=== PATIENT | female | born 1960 | race Caucasian/White ===

== ENCOUNTER 2024-11-04 20:06 | Inpatient (IN) | payer OTHER, SELFPAY ==
--- NOTE | ~2024-11-04 | CT_ITS ---
EXAMINATION: CT cervical spine wo con DATE: 11/04/2024 22:44 INDICATION: Fall. TECHNIQUE: Computed tomography (CT) of the cervical spine was performed without intravenous contrast. Automated exposure control and iterative reconstruction technique were employed. The dose-length pro duct was 387.22 mGy-cm. COMPARISON: None FINDINGS: C1 ring is ununited posteriorly, a normal variant. There is 2 mm anterolisthesis of C4 on C 5. There is 5 degrees levocurvature of cervical spine. Vertebral body heights are normal. There is se verely decreased disc height at C5-C6 and mildly decreased disc height at C6-C7. The following disc l evels are specifically discussed: C2-C3: There is moderate right and mild left uncovertebral joint osteoarthritis. There is severe bila teral facet joint osteoarthritis. There is mild right neural foraminal stenosis. There is no central canal stenosis. C3-C4: There is severe bilateral uncovertebral joint osteoarthritis. There is severe bilateral facet joint osteoarthritis. There is mild right and moderate left neural foraminal stenosis. There is mild central canal stenosis. C4-C5: There is mild right and severe left uncovertebral joint osteoarthritis. There is mild right an d severe left facet joint osteoarthritis. There is moderate left neural foraminal stenosis. There is mild central canal stenosis. C5-C6: There is severe bilateral uncovertebral joint osteoarthritis. There is moderate right and shantanu re left facet joint osteoarthritis. There is moderate right and mild left neural foraminal stenosis. There is mild central canal stenosis. C6-C7: There is severe bilateral uncovertebral joint osteoarthritis. There is severe bilateral facet joint osteoarthritis. There is mild bilateral neural foraminal stenosis. There is mild central canal stenosis. C7-T1: There is no uncovertebral joint osteoarthritis. There is moderate right and severe left facet joint osteoarthritis. There is mild left neural foraminal stenosis. There is no central canal stenosi s. IMPRESSION: 1. No fracture. 2. Severe cervical spondylosis. Reviewed, dictated and finalized at location A. CH LANG PATH THERAPIST
--- NOTE | ~2024-11-04 | CT_ITS ---
EXAMINATION: CT abd pelvis lumbar wo con DATE: 11/04/2024 22:44 INDICATION: Abdominal pain. Sepsis. TECHNIQUE: Computed tomography (CT) of the abdomen and pelvis and lumbar spine was performed without intravenous contrast. Automated exposure control and iterative reconstruction technique were employed . The dose-length product was 2045.30 mGy-cm. COMPARISON: CT abdomen and pelvis 09/06/2023, 06/28/2024 FINDINGS: CT ABDOMEN AND PELVIS: The visualized portions of the lung bases demonstrate mild atelectasis. No ple ural effusion. The heart size is normal. No pericardial effusion. There is diffuse hepatic steatosis. There are changes of cholecystectomy. Calcifications in the spleen are consistent with old granuloma tous disease. The pancreas is normal. There is an 8 mm mass in right adrenal gland containing fat, co nsistent with a myelolipoma. There are dystrophic calcifications in the left adrenal gland. There is a 1.3 cm mass in left adrenal gland measuring low attenuation, consistent with an adenoma. The right kidney is normal. There is asymmetric fat stranding around the left kidney. There is mild left hydrou reter. There is diverticulosis of the colon without evidence of diverticulitis. There are no dilated loops of bowel. The appendix is normal. There is calcified atherosclerosis of the aorta and many of t he other arteries. There are stents in the common iliac arteries. There are no pathologically enlarge d lymph nodes. There is no free intraperitoneal fluid. CT LUMBAR SPINE: There is 4 degrees dextrocurvature of lumbar spine. Vertebral body heights are afua l. There is mildly decreased disc height at L3-L4 and L4-L5. The following disc levels are specifical ly discussed: L1-L2: The disc does not extend beyond the endplate margin. There is severe bilateral facet joint ost eoarthritis. There is no neural foraminal stenosis. There is no central canal stenosis. L2-L3: The disc is bulging. There is severe bilateral facet joint osteoarthritis. There is mild bilat eral neural foraminal stenosis. There is mild central canal stenosis. L3-L4: The disc is bulging. There is severe bilateral facet joint osteoarthritis. There is mild bilat eral neural foraminal stenosis. There is mild central canal stenosis. L4-L5: The disc is bulging. There is mild bilateral facet joint osteoarthritis. There is mild bilater al neural foraminal stenosis. There is mild central canal stenosis. L5-S1: The disc is bulging. There is severe bilateral facet joint osteoarthritis. There is no neural foraminal stenosis. There is mild central canal stenosis. IMPRESSION: 1. Mild left hydroureter, new from 06/28/24. No urolithiasis. 2. Mild lumbar spondylosis. Reviewed, dictated and finalized at location A. TS BOOK BOARD ATTENDANT
--- NOTE | ~2024-11-04 | XR_ITS ---
XR chest 1V portable DATE: 11/04/2024 20:57 INDICATION: Fall. Weakness. TECHNIQUE: [place] [id number] hours COMPARISON: 06/22/2024 portable AP chest FINDINGS: Calcified pulmonary granuloma in the lateral left midlung. No pulmonary infiltrate or conso lidation, pleural effusion or pulmonary vascular congestion or pneumothorax. Normal heart size. No hilar or mediastinal enlargement. Included skeletal structures appear unremarkable. IMPRESSION: No active cardiopulmonary disease Reviewed, dictated and finalized at location A. OLE OPERATOR
--- NOTE | ~2024-11-04 | CT_ITS ---
EXAMINATION: CT brain wo con DATE: 11/04/2024 22:44 INDICATION: Fall. TECHNIQUE: Computed tomography (CT) of the head was performed without intravenous contrast. The mA wa s adjusted according to patient size. Iterative reconstruction technique was employed. The dose-lengt h product was 983.67 mGy-cm. COMPARISON: Head CT 06/22/2024 FINDINGS: There are old infarcts in the bilateral basal ganglia. There is no intracranial hemorrhage, acute infarction, or abnormal intracranial mass lesion. The ventricles are normal in size. There are old fractures of the medial calvin of the orbits. There is mild mucosal thickening in the ethmoid sin uses. The mastoid air cells are normal. IMPRESSION: 1. Old infarcts in the bilateral basal ganglia. Reviewed, dictated and finalized at location A. COUNSELOR
--- NOTE | ~2024-11-04 | XR_ITS ---
EXAMINATION: XR chest port-a-cath/central DATE: 11/05/2024 10:20 INDICATION: Central line placement. TECHNIQUE: A single frontal view of the chest was obtained. COMPARISON: Chest single view 11/04/2024 FINDINGS: There is no pneumonia, pleural effusion, or pneumothorax. The heart size is normal. A right internal jugular central venous catheter is seen with tip in the proximal right atrium. IMPRESSION: 1. Central line tip in the proximal right atrium. Reviewed, dictated and finalized at location A. CCO PRIMER 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
--- NOTE | ~2024-11-04 | US_ITS ---
US renal BI DATE: 11/05/2024 14:57 INDICATION: Elevated serum creatinine TECHNIQUE: Real-time imaging of the kidneys and urinary bladder COMPARISON: 11/04/2024 CT abdomen pelvis FINDINGS: The right kidney measures 12.9 cm sagittal, 5.4 cm AP and 6.1 cm transverse dimension. No right renal mass lesion or hydronephrosis is detected. The left kidney measures 12.7 cm sagittal, 6.1 cm AP and 5.5 cm transverse dimension. No left renal m ass lesion or hydronephrosis is detected. The urinary bladder the catheter and is evacuated and not evaluated as a result. IMPRESSION: No renal mass lesion or hydronephrosis is detected Reviewed, dictated and finalized at Location A. Reviewed, dictated and finalized at location A. LYST RECOVERY OPERATOR
--- NOTE | ~2024-11-04 | CT_ITS ---
EXAMINATION: CT thoracic spine wo con DATE: 11/04/2024 22:44 INDICATION: Fall. TECHNIQUE: Computed tomography (CT) of the thoracic spine was performed without intravenous contrast. Automated exposure control and iterative reconstruction technique were employed. The dose-length pro duct was 1452.60 mGy-cm. COMPARISON: Chest CT 02/18/2023 FINDINGS: Calcified left hilar lymph nodes and calcifications in the liver and spleen are consistent with old granulomatous disease. There is 6 degrees dextrocurvature of thoracic spine. Vertebral body heights are normal. There is mildly decreased disc height from T2-T3 through T11-T12. There is multil evel [id number] facet joint osteoarthritis. On the right, there is mild neural foraminal stenos is at T8-T9. There is mild central canal stenosis at T10-T11 and T11-T12. IMPRESSION: 1. No fracture 2. Mild thoracic spondylosis. Reviewed, dictated and finalized at location A. K AIRMAN
--- NOTE | ~2024-11-04 | XR_ITS ---
XR abdomen obstructive series Ordering provider: FAYE Cruz History: . Constipation with N/V . Comparison: None. FINDINGS: BOWEL: Nonobstructive bowel gas pattern. ORGANOMEGALY: None. SIGNIFICANT PATHOLOGIC CALCIFICATIONS: None. OTHER: No free air is seen under the diaphragm. Stents are seen in the right and left iliac arteries. IMPRESSION: NO ACUTE ABDOMINAL FINDINGS. Reviewed, dictated and finalized at location A. ER SETTER CHAINSTITCH
[2024-11-04 20:04] VITALS: BP 68/54; PULSE 113; RESP 26; TEMP 36.9; O2SAT 97
--- NOTE | 2024-11-04 20:20 | PC.NURSE ---
Upon assessment in triage, patient appears lethargic and very pale.
--- NOTE | 2024-11-04 20:22 | ECG_ITS ---
Test Date: 2024-11-04 20:26:14 Measurements Intervals [place] Rate: 104 P: 0 OR: 0 QRS: 37 QRSD: 92 T: 24 QT: 362 QTc: 478 Interpretive Statements ATRIAL FIBRILLATION WITH RAPID VENTRICULAR RESPONSE MODERATE T-WAVE ABNORMALITY, CONSIDER INFERIOR ISCHEMIA [-0.1+ mV T WAVE IN II/aVF] No previous ECG available for comparison Electronically Signed On 11-04-2024 21:05:11 EXPORT FREIGHT MANAGER by Rhonda Barriga M.D.
[2024-11-04] MEDS: SODIUM CHLORIDE 0.9% IV 1,000 ML 999 ML (20:30)
[2024-11-04 20:32] VITALS: BP 78/51; PULSE 119; RESP 19
[2024-11-04 20:34] VITALS: PULSE 101; RESP 22; O2SAT 96
[2024-11-04 20:35] VITALS: O2SAT 95
--- NOTE | 2024-11-04 20:51 | ED_ITS ---
HPI - Weakness General Chief complaint: Upper Respiratory Infection <MIREILLE Coyle Last Filed: 11/05/24 01:21> Stated complaint: flu symptoms and fall <MIREILLE Coyle Last Filed: 11/05/24 01:21> Time Seen by Provider: 11/04/24 20:11 <MIREILLE Coyle Last Filed: 11/05/24 01:21> Source: patient <MIREILLE Coyle Last Filed: 11/05/24 01:21> Mode of arrival: EMS <MIREILLE Coyle Last Filed: 11/05/24 01:21> Limitations: no limitations <MIREILLE Coyle Last Filed: 11/05/24 01:21> History of Present Illness HPI Narrative: This is a 63 year old female that presents to the ER for generalized weakness. Reports this has been ongoing over the last 4 days. Reports recent cystoscopy for bladder cancer, she tends to get UTIs after this. She has had fevers and flank pain. Also reports cough, congestion, diarrhea. Reports today she was so weak she fell. She reports back pain after the fall. She does not believe she hit her head or lost consciousness. <MIREILLE Coyle Last Filed: 11/05/24 01:21> Related Data Allergies/Adverse reactions: Allergies Allergy/AdvReac Type Severity Reaction Status Date / Time No Known Allergies Allergy Verified 11/04/24 20:49 <MIREILLE Coyle Last Filed: 11/05/24 01:21> Review of Systems 2 Review of Systems: CONSTITUTIONAL: Reports fever ENT: Reports rhinorrhea, congestion CARDIOVASCULAR: Denies chest pain, or edema. RESPIRATORY: Reports cough and dyspnea. GASTROINTESTINAL: Reports abdominal pain, nausea, and diarrhea. GENITOURINARY: Denies hematuria. MUSCULOSKELETAL: Reports back pain NEUROLOGIC: Reports generalized weakness. <MIREILLE Coyle Last Filed: 11/05/24 01:21> All systems reviewed & are unremarkable except as noted in HPI and below < MIREILLE Coyle Last Filed: 11/05/24 01:21> [facility] Past Medical History Medical History: Medical History (Updated 11/05/24 @ 01:21 by Nicole Hernandez PA-C) History of gastroesophageal reflux (GERD) History of diabetes mellitus History of COPD History of bladder cancer <Nicole Hernandez PA-C - Last Filed: 11/05/24 01:21> Social History Social History: Social History (Updated 11/05/24 @ 01:11 by Nicole Hernandez PA-C) Smoking status: Current some day smoker <Nicole Hernandez PA-C - Last Filed: 11/05/24 01:21> Exam 2 Narrative: GENERAL: Ill-appearing, well-nourished, and in no acute distress. HEAD: Normocephalic, atraumatic. EYES: PERRLA and EOMI. ENT: Nares clear, no rhinorrhea or epistaxis. Mucous membranes moist. Oropharynx without tonsillar hypertrophy exudate or other lesions. Bilateral TMs pearly howard non-bulging NECK: Supple. No adenopathy or masses. CHEST: Clear to auscultation. No respiratory distress. No wheezes rales or rhonchi HEART: Regular rate and rhythm. No murmur heard. Normal peripheral pulses. ABDOMEN: Soft, nontender, nondistended, normal active bowel sounds. EXTREMITIES: Normal range of motion. No edema or obvious deformity. SKIN: Warm, dry, no rash. NEURO: No focal deficits. Alert and oriented x3. CN II-XII grossly intact PSYCH: Normal mood and affect <Nicole Hernandez PA-C - Last Filed: 11/05/24 01:21> Course Course Emergency Course: patient updated on workup and recommendation for admission <Nicole Hernandez PA-C - Last Filed: 11/05/24 01:21> BUS AND RAIL OPERATOR/PA Physician Supervision For this patient encounter, I reviewed the BUS AND RAIL OPERATOR or PA documentation, treatment plan, and medical decision making; and I had [id number] time with this patient. <Reid Maynard MD - Last Filed: 11/05/24 03:21> Consultations Consultation #1: spoke with hospitalist about patient and workup who accepts admission < Nicole Hernandez PA-C - Last Filed: 11/05/24 01:21> Date: 11/05/24 <Nicole Hernandez PA-C - Last Filed: 11/05/24 01:21> Vital Signs Vital signs: Vital Signs Temperature 98.4 F 11/04/24 20:04 Pulse Rate 113 H 11/04/24 20:04 Respiratory Rate 26 H 11/04/24 20:04 Blood Pressure 68/54 L 11/04/24 20:04 Pulse Oximetry 97 11/04/24 20:04 Oxygen Delivery Room Air 11/04/24 20:04 Temperature 98.4 F 11/04/24 20:04 Pulse Rate 142 H 11/05/24 02:34 Respiratory Rate 22 H 11/05/24 02:34 Blood Pressure 106/61 11/05/24 02:34 Pulse Oximetry 100 11/05/24 02:34 Oxygen Delivery Nasal Cannula 11/04/24 20:35 Oxygen Flow Rate 4 11/04/24 20:35 <Nicole Hernandez PA-C - Last Filed: 11/05/24 01:21> Vital Signs Temperature 98.4 F 11/04/24 20:04 Pulse Rate 113 H 11/04/24 20:04 Respiratory Rate 26 H 11/04/24 20:04 Blood Pressure 68/54 L 11/04/24 20:04 Pulse Oximetry 97 11/04/24 20:04 Oxygen Delivery Room Air 11/04/24 20:04 Temperature 98.4 F 11/04/24 20:04 Pulse Rate 142 H 11/05/24 02:34 Respiratory Rate 22 H 11/05/24 02:34 Blood Pressure 106/61 11/05/24 02:34 Pulse Oximetry 100 11/05/24 02:34 Oxygen Delivery Nasal Cannula 11/04/24 20:35 Oxygen Flow Rate 4 11/04/24 20:35 <Reid Maynard MD - Last Filed: 11/05/24 03:21> MDM - Weakness MDM Narrative Medical decision making narrative: Patient presents to the emergency department for generalized weakness, viral symptoms, flank pain. Reporting a fall tonight. Patient is afebrile. Tachycardic upon arrival, this had initially normalized with IV fluids. She then again heart rate became more elevated, noted to be in AFib with RVR. Patient started on diltiazem drip. Blood pressure initially soft, this did respond to IV fluids. CBC with leukocytosis to 18.8, also shows hemoconcentration. Metabolic panel with evidence of dehydration and hyponatremia. As well as acute kidney injury. Urine with evidence of infection. COVID test is positive. CT brain, cervical spine, thoracic and lumbar spine without acute posttraumatic findings. CT abdomen and pelvis shows perinephric stranding on the left. patient updated on workup and recommendation for admission. Patient was fluid resuscitated, blood cultures drawn and patient started on IV antibiotics. Spoke with hospitalist about patient and workup who accepts admission <Nicole Hernandez PA-C - Last Filed: 11/05/24 01:21> Differential Diagnosis Differential diagnosis: Likely sepsis, dehydration and other ( UTI, pyelonephritis, kidney stone, compression fracture, electrolyte derangement, COVID-19, atrial fibrillation) < Nicole Hernandez PA-C - Last Filed: 11/05/24 01:21> Lab Data Attestation: I reviewed the patient's lab results. <Nicole Hernandez PA-C - Last Filed: 11/05/24 01:21> Result diagrams: 11/04/24 20:43 11/04/24 20:43 <MIREILLE Coyle Last Filed: 11/05/24 01:21> Labs: Lab Results 11/04/24 11/04/24 11/05/24 Range/Units 20:43 23:39 00:08 WBC 18.8 H (4.5-10.0) K/mm3 RBC 5.79 H (4.2-5.4) M/mm3 Hgb 16.5 H (12.0-15.0) g/dL Hct 48.5 H (37.0-47.0) % MCV 83.8 (80-100) fl MCH 28.5 (26-34) pg MCHC 34.0 (32-36) g/dl RDW 12.7 (11.5-14.5) % Plt Count 174 (150-375) k/mm3 MPV 11.2 H (7.4-10.4) fl Immature Gran % (Auto) 1.1 H (0-0.5) % Neut % (Auto) 83.1 H (45.5-73.1) % Lymph % (Auto) 5.3 L (18.3-44.2) % [place] % (Auto) 8.6 H (2.6-8.5) % Eos % (Auto) 1.2 (0-4.4) % Baso % (Auto) 0.7 (0.2-1.2) % Lymph # (Auto) 0.99 (0.9-3.2) K/mm3 [place] # (Auto) 1.6 H (0.1-0.6) K/mm3 Eos # (Auto) 0.2 (0-0.3) K/mm3 Baso # (Auto) 0.1 (0.0-0.1) K/mm3 Abs Immat Gran (auto) 0.20 H (0.00-0.031) K/mm3 Absolute Neuts (auto) 15.7 H (1.3-6.7) K/mm3 Absolute Nucleated RBC 0.000 (0.0-0.012) K/mm3 Nucleated RBC % 0.0 (0.0-0.2) % Sodium 122 L (137-145) mmol/L Potassium 3.6 (3.4-5.0) mmol/L Chloride 93 L (98-107) mmol/L Carbon Dioxide 17 L (22-30) mmol/L Anion Gap 12 (4-12) mmol/L BUN 36 H (7-17) mg/dL Creatinine 2.20 H (0.7-1.0) mg/dL Estim Creat Clear Calc 25 ml/min Estimated GFR 23 L (59 - ) Glucose 210 H (65-110) mg/dL Lactic Acid 3.6 H 3.1 H (0.7-2.0) mmol/L Calcium 9.0 (8.4-10.2) mg/dL Magnesium (1.6-2.3) mg/dL Total Bilirubin 1.0 (0.2-1.3) mg/dL AST 35 (14-36) U/L ALT 22 (6-35) U/L Alkaline Phosphatase 133 H (38-126) U/L Total Creatine Kinase 114 (30-135) U/L Troponin I 0.045 H* (0.000-0.034) ng/mL C-Reactive Protein > 45.0 H (<1.0) mg/dL Total Protein 8.0 (6.3-8.2) g/dL Albumin 3.7 (3.5-5.1) g/dL Urine Color Yellow (Yellow) Urine Appearance Turbid H (Clear) Urine pH 5.5 (5.0-9.0) Ur Specific [place] 1.011 (1.001-1.035) Urine Protein 3+ H (Negative) mg/dL Urine Glucose (UA) Negative (Negative) mg/dL Urine Ketones Negative (Negative) mg/dL Ur Blood (Man) 3+ H (Negative) Urine Nitrate Positive H (Negative) Urine Bilirubin Negative (Negative) Urine Urobilinogen 1.0 (<2.0) mg/dL Add Ur Microanalysis Reviewed Leukocyte Esterase Rfl 2+ H (Negative) NORBERTO/UL Urine RBC >100 H (0-2) /hpf Urine WBC >100 H (0-3) /hpf Ur Squamous Epith Cells Occasional (Few) /hpf Urine Bacteria 4+ H /hpf Urine Casts 11-20 Influenza A (RT-PCR) Negative (Negative) Influenza B (RT-PCR) Negative (Negative) RSV (RT-PCR) Negative (Negative) SARS-CoV-2 RNA (RT-PCR) Positive A (Negative) 11/05/24 Range/Units 02:47 WBC (4.5-10.0) K/mm3 RBC (4.2-5.4) M/mm3 Hgb (12.0-15.0) g/dL Hct (37.0-47.0) % MCV (80-100) fl MCH (26-34) pg MCHC (32-36) g/dl RDW (11.5-14.5) % Plt Count (150-375) k/mm3 MPV (7.4-10.4) fl Immature Gran % (Auto) (0-0.5) % Neut % (Auto) (45.5-73.1) % Lymph % (Auto) (18.3-44.2) % [place] % (Auto) (2.6-8.5) % Eos % (Auto) (0-4.4) % Baso % (Auto) (0.2-1.2) % Lymph # (Auto) (0.9-3.2) K/mm3 [place] # (Auto) (0.1-0.6) K/mm3 Eos # (Auto) (0-0.3) K/mm3 Baso # (Auto) (0.0-0.1) K/mm3 Abs Immat Gran (auto) (0.00-0.031) K/mm3 Absolute Neuts (auto) (1.3-6.7) K/mm3 Absolute Nucleated RBC (0.0-0.012) K/mm3 Nucleated RBC % (0.0-0.2) % Sodium (137-145) mmol/L Potassium (3.4-5.0) mmol/L Chloride (98-107) mmol/L Carbon Dioxide (22-30) mmol/L Anion Gap (4-12) mmol/L BUN (7-17) mg/dL Creatinine (0.7-1.0) mg/dL Estim Creat Clear Calc ml/min Estimated GFR (59 - ) Glucose (65-110) mg/dL Lactic Acid (0.7-2.0) mmol/L Calcium (8.4-10.2) mg/dL Magnesium 1.5 L (1.6-2.3) mg/dL Total Bilirubin (0.2-1.3) mg/dL AST (14-36) U/L ALT (6-35) U/L Alkaline Phosphatase (38-126) U/L Total Creatine Kinase (30-135) U/L Troponin I 0.025 D (0.000-0.034) ng/mL C-Reactive Protein (<1.0) mg/dL Total Protein (6.3-8.2) g/dL Albumin (3.5-5.1) g/dL Urine Color (Yellow) Urine Appearance (Clear) Urine pH (5.0-9.0) Ur Specific [place] (1.001-1.035) Urine Protein (Negative) mg/dL Urine Glucose (UA) (Negative) mg/dL Urine Ketones (Negative) mg/dL Ur Blood (Man) (Negative) Urine Nitrate (Negative) Urine Bilirubin (Negative) Urine Urobilinogen (<2.0) mg/dL Add Ur Microanalysis Leukocyte Esterase Rfl (Negative) NORBERTO/UL Urine RBC (0-2) /hpf Urine WBC (0-3) /hpf Ur Squamous Epith Cells (Few) /hpf Urine Bacteria /hpf Urine Casts Influenza A (RT-PCR) (Negative) Influenza B (RT-PCR) (Negative) RSV (RT-PCR) (Negative) SARS-CoV-2 RNA (RT-PCR) (Negative) <Nicole Hernandez PA-C - Last Filed: 11/05/24 01:21> Lab Results 11/04/24 11/04/24 11/05/24 Range/Units 20:43 23:39 00:08 WBC 18.8 H (4.5-10.0) K/mm3 RBC 5.79 H (4.2-5.4) M/mm3 Hgb 16.5 H (12.0-15.0) g/dL Hct 48.5 H (37.0-47.0) % MCV 83.8 (80-100) fl MCH 28.5 (26-34) pg MCHC 34.0 (32-36) g/dl RDW 12.7 (11.5-14.5) % Plt Count 174 (150-375) k/mm3 MPV 11.2 H (7.4-10.4) fl Immature Gran % (Auto) 1.1 H (0-0.5) % Neut % (Auto) 83.1 H (45.5-73.1) % Lymph % (Auto) 5.3 L (18.3-44.2) % [place] % (Auto) 8.6 H (2.6-8.5) % Eos % (Auto) 1.2 (0-4.4) % Baso % (Auto) 0.7 (0.2-1.2) % Lymph # (Auto) 0.99 (0.9-3.2) K/mm3 [place] # (Auto) 1.6 H (0.1-0.6) K/mm3 Eos # (Auto) 0.2 (0-0.3) K/mm3 Baso # (Auto) 0.1 (0.0-0.1) K/mm3 Abs Immat Gran (auto) 0.20 H (0.00-0.031) K/mm3 Absolute Neuts (auto) 15.7 H (1.3-6.7) K/mm3 Absolute Nucleated RBC 0.000 (0.0-0.012) K/mm3 Nucleated RBC % 0.0 (0.0-0.2) % Sodium 122 L (137-145) mmol/L Potassium 3.6 (3.4-5.0) mmol/L Chloride 93 L (98-107) mmol/L Carbon Dioxide 17 L (22-30) mmol/L Anion Gap 12 (4-12) mmol/L BUN 36 H (7-17) mg/dL Creatinine 2.20 H (0.7-1.0) mg/dL Estim Creat Clear Calc 25 ml/min Estimated GFR 23 L (59 - ) Glucose 210 H (65-110) mg/dL Lactic Acid 3.6 H 3.1 H (0.7-2.0) mmol/L Calcium 9.0 (8.4-10.2) mg/dL Magnesium (1.6-2.3) mg/dL Total Bilirubin 1.0 (0.2-1.3) mg/dL AST 35 (14-36) U/L ALT 22 (6-35) U/L Alkaline Phosphatase 133 H (38-126) U/L Total Creatine Kinase 114 (30-135) U/L Troponin I 0.045 H* (0.000-0.034) ng/mL C-Reactive Protein > 45.0 H (<1.0) mg/dL Total Protein 8.0 (6.3-8.2) g/dL Albumin 3.7 (3.5-5.1) g/dL Urine Color Yellow (Yellow) Urine Appearance Turbid H (Clear) Urine pH 5.5 (5.0-9.0) Ur Specific [place] 1.011 (1.001-1.035) Urine Protein 3+ H (Negative) mg/dL Urine Glucose (UA) Negative (Negative) mg/dL Urine Ketones Negative (Negative) mg/dL Ur Blood (Man) 3+ H (Negative) Urine Nitrate Positive H (Negative) Urine Bilirubin Negative (Negative) Urine Urobilinogen 1.0 (<2.0) mg/dL Add Ur Microanalysis Reviewed Leukocyte Esterase Rfl 2+ H (Negative) NORBERTO/UL Urine RBC >100 H (0-2) /hpf Urine WBC >100 H (0-3) /hpf Ur Squamous Epith Cells Occasional (Few) /hpf Urine Bacteria 4+ H /hpf Urine Casts 11-20 Influenza A (RT-PCR) Negative (Negative) Influenza B (RT-PCR) Negative (Negative) RSV (RT-PCR) Negative (Negative) SARS-CoV-2 RNA (RT-PCR) Positive A (Negative) 11/05/24 Range/Units 02:47 WBC (4.5-10.0) K/mm3 RBC (4.2-5.4) M/mm3 Hgb (12.0-15.0) g/dL Hct (37.0-47.0) % MCV (80-100) fl MCH (26-34) pg MCHC (32-36) g/dl RDW (11.5-14.5) % Plt Count (150-375) k/mm3 MPV (7.4-10.4) fl Immature Gran % (Auto) (0-0.5) % Neut % (Auto) (45.5-73.1) % Lymph % (Auto) (18.3-44.2) % [place] % (Auto) (2.6-8.5) % Eos % (Auto) (0-4.4) % Baso % (Auto) (0.2-1.2) % Lymph # (Auto) (0.9-3.2) K/mm3 [place] # (Auto) (0.1-0.6) K/mm3 Eos # (Auto) (0-0.3) K/mm3 Baso # (Auto) (0.0-0.1) K/mm3 Abs Immat Gran (auto) (0.00-0.031) K/mm3 Absolute Neuts (auto) (1.3-6.7) K/mm3 Absolute Nucleated RBC (0.0-0.012) K/mm3 Nucleated RBC % (0.0-0.2) % Sodium (137-145) mmol/L Potassium (3.4-5.0) mmol/L Chloride (98-107) mmol/L Carbon Dioxide (22-30) mmol/L Anion Gap (4-12) mmol/L BUN (7-17) mg/dL Creatinine (0.7-1.0) mg/dL Estim Creat Clear Calc ml/min Estimated GFR (59 - ) Glucose (65-110) mg/dL Lactic Acid (0.7-2.0) mmol/L Calcium (8.4-10.2) mg/dL Magnesium 1.5 L (1.6-2.3) mg/dL Total Bilirubin (0.2-1.3) mg/dL AST (14-36) U/L ALT (6-35) U/L Alkaline Phosphatase (38-126) U/L Total Creatine Kinase (30-135) U/L Troponin I 0.025 D (0.000-0.034) ng/mL C-Reactive Protein (<1.0) mg/dL Total Protein (6.3-8.2) g/dL Albumin (3.5-5.1) g/dL Urine Color (Yellow) Urine Appearance (Clear) Urine pH (5.0-9.0) Ur Specific [place] (1.001-1.035) Urine Protein (Negative) mg/dL Urine Glucose (UA) (Negative) mg/dL Urine Ketones (Negative) mg/dL Ur Blood (Man) (Negative) Urine Nitrate (Negative) Urine Bilirubin (Negative) Urine Urobilinogen (<2.0) mg/dL Add Ur Microanalysis Leukocyte Esterase Rfl (Negative) NORBERTO/UL Urine RBC (0-2) /hpf Urine WBC (0-3) /hpf Ur Squamous Epith Cells (Few) /hpf Urine Bacteria /hpf Urine Casts Influenza A (RT-PCR) (Negative) Influenza B (RT-PCR) (Negative) RSV (RT-PCR) (Negative) SARS-CoV-2 RNA (RT-PCR) (Negative) <Reid Maynard MD - Last Filed: 11/05/24 03:21> Imaging Data Radiologist's impression: ITS Impressions Chest X-Ray 11/04/24 21:04 IMPRESSION: No active cardiopulmonary disease CT brain: no acute intracranial abnormality CT cervical spine: no acute traumatic abnormality identified CT abdomen and pelvis: Perinephric stranding on the left. No evidence of renal calculi or hydronephrosis CT thoracic spine: no acute fracture CT lumbar spine: no acute fracture <Nicole Hernandez PA-C - Last Filed: 11/05/24 01:21> ECG Data EKG #1: ECG completion date: 11/04/24 <MIREILLE Coyle Last Filed: 11/05/24 01:21> EKG Interpretation: atrial fibrillation (with RVR) and normal QT <Nicole Hernandez PA-C - Last Filed: 11/05/24 01:21> Critical Care Time Critical Care Time Critical Care Time: Yes <Nicole Hernandez PA-C - Last Filed: 11/05/24 01:21> Total Critical Care Time: 35 <Nicole Hernandez PA-C - Last Filed: 11/05/24 01:21> Discharge Plan Discharge Clinical Impression: Pyelonephritis, Atrial fibrillation with RVR, COVID-19, Hyponatremia Sepsis Qualifiers: Sepsis type: sepsis due to unspecified organism Sepsis acute organ dysfunction status: with acute organ dysfunction Severe sepsis acute organ dysfunction type: acute renal failure Acute renal failure type: unspecified Severe sepsis shock status: without septic shock Qualified Code(s): A41.9 - Sepsis, unspecified organism <Nicole Hernandez PA-C - Last Filed: 11/05/24 01:21> Patient Disposition: Still a Patient <Nicole Hernandez PA-C - Last Filed: 11/05/24 01:21> Condition: Serious <Nicole Hernandez PA-C - Last Filed: 11/05/24 01:21> Patient Language: Nicaraguan <Nicole Hernandez PA-C - Last Filed: 11/05/24 01:21> Follow-up/Referrals: Andrey,Matti Parson MD [Primary Care Provider] - <Nicole Hernandez PA-C - Last Filed: 11/05/24 01:21>
--- NOTE | 2024-11-04 20:52 | PC.NURSE ---
RN informed provider that patient does not look well at this time.
[2024-11-04] MEDS: Please add drug allergy info to patient profile. 1 EACH XX (20:53)
[2024-11-04 20:59] LABS: Basophils Absolute Auto 0.1 K/mm3 (0.0-0.1); Basophils Percent Auto 0.7 % (0.2-1.2); Eosinophils Absolute Auto 0.2 K/mm3 (0-0.3); Eosinophils Percent Auto 1.2 % (0-4.4); Hematocrit 48.5 % (37.0-47.0); Hemoglobin 16.5 g/dL (12.0-15.0); Immature Granulocyte Percent A 1.1 % (0-0.5); Lymphocytes Absolute Auto 0.99 K/mm3 (0.9-3.2); Lymphocytes Percent Auto 5.3 % (18.3-44.2); Mean Corpuscular Hemoglobin 28.5 pg (26-34); Mean Corpuscular Volume 83.8 fl (80-100); Mean Platelet Volume 11.2 fl (7.4-10.4); Monocytes Absolute Auto 1.6 K/mm3 (0.1-0.6); Monocytes Percent Auto 8.6 % (2.6-8.5); Neutrophils Absolute Auto 15.7 K/mm3 (1.3-6.7); Neutrophils Percent Auto 83.1 % (45.5-73.1); Platelet Count Result 174 k/mm3 (150-375); Red Blood Count 5.79 M/mm3 (4.2-5.4); Red Cell Distribution Width 12.7 % (11.5-14.5); White Blood Count 18.8 K/mm3 (4.5-10.0)
[2024-11-04 21:09] LABS: Lactic Acid Reflex 3.6 mmol/L (0.7-2.0)
[2024-11-04 21:16] LABS: Alanine Aminotransferase 22 U/L (6-35); Albumin Level 3.7 g/dL (3.5-5.1); Alkaline Phosphatase 133 U/L (38-126); Anion Gap 12 mmol/L (4-12); Aspartate Amino Transferase 35 U/L (14-36); Blood Urea Nitrogen 36 mg/dL (7-17); Carbon Dioxide 17 mmol/L (22-30); Chloride 93 mmol/L (98-107); Creatine Kinase 114 U/L (30-135); Estimated CRCL calculation 25 ml/min; Estimated Glomerular Filt Rate 23; Glucose 210 mg/dL (65-110); Potassium 3.6 mmol/L (3.4-5.0); Sodium 122 mmol/L (137-145)
[2024-11-04 21:25] LABS: Troponin I 0.045 ng/mL (0.000-0.034)
[2024-11-04 21:35] LABS: Influenza A QL RT-PCR Negative (Negative); Influenza B QL RT-PCR Negative (Negative); RSV RNA, RT-PCR Negative (Negative); SARS-CoV-2 RNA PCR Positive (Negative)
[2024-11-04] MEDS: SODIUM CHLORIDE 0.9% IV 500 ML 999 ML IV CONT (21:41)
[2024-11-04 21:48] LABS: CRP > 45.0 mg/dL (<1.0)
--- NOTE | 2024-11-04 21:48 | PC.NURSE ---
RN has attempted several times to place o2 measuring on patient without any success.
[2024-11-04 21:56] VITALS: BP 106/89; PULSE 81; RESP 22; O2SAT 100
--- NOTE | 2024-11-04 22:01 | PC.NURSE ---
o2 measuring is on at this time. giving readings off and on.
--- NOTE | 2024-11-04 22:13 | PC.NURSE ---
patient to radiology at this time.
[2024-11-04 23:54] LABS: Reflex Lactic Acid Yes or No Add Lactic
[2024-11-05] VITALS (30 sets, daily range): BP systolic 73–145; BP diastolic 41–94; PULSE 86–148; RESP 17–26; TEMP 36.7–37.3; O2SAT 95–100; BMI 32.1
[2024-11-05 00:02] LABS: Add Urine Microscopic? YES; Appearance Urine Turbid (Clear); Bacteria Urine 4+ /hpf; Bilirubin Urine Negative (Negative); Blood Urine 3+ (Negative); Color Urine Yellow (Yellow); Glucose Urine UA Negative (Negative); Ketones Urine Negative (Negative); Leukocyte Esterase Ur 2+ LEU/UL (Negative); Need Manual Microscopic Reviewed; Nitrate Urine Positive (Negative); Protein Urine 3+ mg/dL (Negative); RBC Urine >100 /hpf (0-2); Specific Grav Ur 1.011 (1.001-1.035); Squamous Epithelial Cell Urine Occasional /hpf (Few); WBC Urine >100 /hpf (0-3); pH Urine 5.5 (5.0-9.0)
[2024-11-05 00:25] LABS: Lactic Acid 3.1 mmol/L (0.7-2.0)
[2024-11-05] MEDS: DICYCLOMINE HCL INJ 20 MG/2 ML VIAL IM (00:43)
[2024-11-05] MEDS: METOPROLOL TARTRATE INJ 5 MG/5 ML VIAL IV PUSH (00:43)
[2024-11-05] MEDS: ACETAMINOPHEN 500 MG TABLET 1000 MG PO (00:43)
[2024-11-05] MEDS: ONDANSETRON INJ 4 MG/2 ML VIAL IV PUSH ×3 (00:43→23:48)
[2024-11-05] MEDS: Please add drug allergy info to patient profile. 1 EACH XX (01:08)
[2024-11-05] MEDS: dilTIAZem HCl INJ 25 MG/5 ML VIAL 10 MG IV PUSH (01:14)
[2024-11-05] MEDS: dilTIAZem 100 MG/100 ML 100 MG/100 ML BAG IV CONT (01:16)
[2024-11-05] MEDS: SODIUM CHLORIDE 0.9% IV 1,000 ML 125 ML IV CONT (01:26)
--- NOTE | 2024-11-05 02:22 | PC.NURSE ---
patient is not able to tolerate standing up.
[2024-11-05 03:06] LABS: Magnesium 1.5 mg/dL (1.6-2.3)
[2024-11-05 03:19] LABS: Troponin I 0.025 ng/mL (0.000-0.034)
--- NOTE | 2024-11-05 03:45 | ADMGEN ---
This patient, Rody Zaidi, was admitted to IMU Room 212-01. Patient/family oriented to hospital policies and general routines including ID bracelet, bed and alarms, visiting hours, pain management, procedures, bathroom and other care routines, personal items, smoking policy, room service/diet, and visiting hours. Information on how to activate the Rapid Response Team has been discussed. Patient/Family are encouraged to report perceived risks to care and to ask questions if they do not understand what they are told or what they should do.
[2024-11-05 03:46] LABS: Glucose Point of Care 199 mg/dl (65-105)
[2024-11-05] MEDS: SODIUM CHLORIDE 0.9% IV 1,000 ML 999 ML IV CONT (05:05)
[2024-11-05] MEDS: dexAMETHasone SOD PHOS INJ 10 MG/ML 1 ML VIAL 6 MG IV PUSH (06:32)
[2024-11-05] MEDS: MAGNESIUM SULF 2 GM/WATER 50ML 2 GM/50 ML BAG IVPB (06:33)
[2024-11-05 06:37] LABS: Hematocrit 35.9 % (37.0-47.0); Mean Corpuscular HGB Conc 33.4 g/dl (32-36); Mean Corpuscular Hemoglobin 28.6 pg (26-34); Mean Corpuscular Volume 85.5 fl (80-100); Mean Platelet Volume 11.1 fl (7.4-10.4); Platelet Count Result 101 k/mm3 (150-375); Red Cell Distribution Width 13.2 % (11.5-14.5)
[2024-11-05 06:57] LABS: Lactic Acid Reflex 1.3 mmol/L (0.7-2.0)
[2024-11-05 07:04] LABS: Band Neutrophils Percent 12 % (0-6); Lymphocytes Absolute Manual 0.64 K/mm3 (1.1-4.5); Lymphocytes Percent Manual 4 % (18-44); Monocytes Absolute Manual 1.28 K/mm3 (0.1-0.90); Monocytes Percent Manual 8 % (3-9); Neutrophils Absolute Manual 14.08 K/mm3 (1.7-7.2); Neutrophils Percent Manual 76 % (46-73); Platelet Estimate Adequate (Adequate); Total Cells Counted 100
[2024-11-05 07:05] LABS: Anisocytosis 1+; Schistocytes None Seen
--- NOTE | 2024-11-05 07:18 | P.HP_ITS ---
H&P: HPI History of Present Illness Date/Time: 11/05/24 07:18 Chief Complaint: Hyponatremia Narrative: 63 year old female with a past medical history of diverticulitis, bladder cancer,COPD, AFib, hypertension, hyperlipidemia, peripheral artery disease with stents (BL) that presents to the ER for generalized weakness. Reports this has been ongoing over the last 4 days. Reports she underwent cystoscopy on October 27 for bladder cancer, and she tends to get UTIs after this. She has had fevers and flank pain. Also reports cough, congestion, diarrhea. Reports she was so weak and was trying to get from bed and she fell.She denies LOC. She reports back pain after the fall. She does not believe she hit her head or lost consciousness. ED pertinent labs: WBC 16, hemoglobin 12, hematocrit 35.9, platelets 101, sodium 122, potassium 3.6, chloride 93, bicarb 17, BUN 36, creatinine 2.2 ,glucose 199 Troponin: 0.045<0.025 UA: specific gravity 1.011, nitrates positive, leukocyte esterase 2+, WBC more than 100, RBC more than [address] Head: Old infarcts in the bilateral basal ganglia. CXR: No active cardiopulmonary disease Patient baseline sodium 136 (2022) but presented with a sodium of 122 during the admission. Initially in the ED patient received metoprolol and diltiazem drip for AFib with RVR. Patient blood pressure was in low 90s over 60s. Patient received IV fluids totally 3 L.. Ordered urine sodium, urine creatinine, urine osmolarity and serum uric acid. In regards to volume status patient looks dehydrated. The morning labs revealed sodium of 130 , so discontinued IV fluids and I spoke with ornamental metal worker apprentice who agrees transferring the patient to ICU. Review of Systems Review of Systems: CONSTITUTIONAL: Reports fever ENT: Reports rhinorrhea, congestion CARDIOVASCULAR: Denies chest pain, or edema. RESPIRATORY: Reports cough and dyspnea. GASTROINTESTINAL: Reports abdominal pain, nausea, and diarrhea. GENITOURINARY: Denies hematuria. MUSCULOSKELETAL: Reports back pain NEUROLOGIC: Reports generalized weakness. All systems reviewed & are unremarkable except as noted in HPI and below PMFSH Past Medical History Medical History History of gastroesophageal reflux (GERD) History of diabetes mellitus History of COPD History of bladder cancer Social History Social History Smoking packs per day: 2 Smoking cigarettes per day: 40.0 Years smoked: 40 Smoking pack-years: 80.00 Smoking status: Current some day smoker Alcohol intake: never Substance use: never Do You Feel Safe in your Home?: Yes Lack of Transportation: No Lack of Food: Never True Current Housing: I Have Housing Concerned About Future Housing: No Difficulty Paying Gas/Electric Bills: No Difficulty Paying for Meds: No Currently Unemployed: No Education: High School Diploma/GED Difficulty w/ Childcare or Family Care: No Spiritual care concerns: No Meds Home Medications and Allergies Home Medications ?Medication ?Instructions ?Recorded ?Confirmed ?Type albuterol sulfate 2.5 mg/3 mL 2.5 mg inhalation Q6H PRN 11/05/24 11/05/24 History (0.083 %) solution for nebulization shortness of breath or wheezing albuterol sulfate 90 mcg/actuation 2 puff inhalation Q6H PRN 11/05/24 11/05/24 History aerosol inhaler shortness of breath or wheezing apixaban 5 mg tablet (Eliquis) 5 mg PO Q12H 11/05/24 11/05/24 History budesonide-formoterol HFA 160 2 puff inhalation Q12H 11/05/24 11/05/24 History mcg-4.5 mcg/actuation aerosol inhaler (Symbicort) clopidogrel 75 mg tablet 75 mg PO DAILY 11/05/24 11/05/24 History ezetimibe 10 mg tablet 10 mg PO DAILY 11/05/24 11/05/24 History fenofibrate 120 mg tablet 120 mg PO DAILY 11/05/24 11/05/24 History fluoxetine 40 mg capsule 40 mg PO QPM 11/05/24 11/05/24 History losartan 100 mg tablet 100 mg PO DAILY 11/05/24 11/05/24 History metformin 500 mg tablet 500 mg PO BID 11/05/24 11/05/24 History montelukast 10 mg tablet 10 mg PO QPM 11/05/24 11/05/24 History sotalol 120 mg tablet 120 mg PO Q12H 11/05/24 11/05/24 History Allergies Allergy/AdvReac Type Severity Reaction Status Date / Time No Known Allergies Allergy Verified 11/04/24 20:49 Vital Signs Vital Signs - 24 hr 11/04/24 20:04 11/04/24 20:32 11/04/24 20:34 Temperature 98.4 F Pulse Rate 113 H 119 H 101 H Respiratory Rate 26 H 19 22 H Blood Pressure 68/54 L 78/51 L Pulse Oximetry 97 96 Oxygen Delivery Room Air Oxygen Flow Rate 11/04/24 20:35 11/04/24 21:56 11/05/24 00:43 Temperature Pulse Rate 81 148 H Respiratory Rate 22 H Blood Pressure 106/89 Pulse Oximetry 95 100 Oxygen Delivery Nasal Cannula Oxygen Flow Rate 4 11/05/24 01:16 11/05/24 02:00 11/05/24 02:15 Temperature Pulse Rate 114 H 99 128 H Respiratory Rate 22 H Blood Pressure 128/70 102/56 L 104/69 Pulse Oximetry 99 Oxygen Delivery Oxygen Flow Rate 11/05/24 02:34 11/05/24 04:00 11/05/24 04:00 Temperature 98.3 F Pulse Rate 142 H 102 H Respiratory Rate 22 H 19 Blood Pressure 106/61 73/41 L Pulse Oximetry 100 97 97 Oxygen Delivery Nasal Cannula Oxygen Flow Rate 3 11/05/24 05:00 Temperature Pulse Rate 108 H Respiratory Rate Blood Pressure 92/47 L Pulse Oximetry Oxygen Delivery Oxygen Flow Rate Exam Narrative: GENERAL: Ill-appearing, well-nourished, and in no acute distress. HEAD: Normocephalic, atraumatic. EYES: PERRLA and EOMI. ENT: Nares clear, no rhinorrhea or epistaxis. Mucous membranes moist. Oropharynx without tonsillar hypertrophy exudate or other lesions. Bilateral TMs pearly howard non-bulging NECK: Supple. No adenopathy or masses. CHEST: Clear to auscultation. No respiratory distress. No wheezes rales or rhonchi HEART: Regular rate and rhythm. No murmur heard. Normal peripheral pulses. ABDOMEN: Soft, nontender, nondistended, normal active bowel sounds. EXTREMITIES: Normal range of motion. No edema or obvious deformity. SKIN: Warm, dry, no rash. NEURO: No focal deficits. Alert and oriented x3. CN II-XII grossly intact PSYCH: Normal mood and affect H&P: Results Labs Labs: Short CBC 11/04/24 11/05/24 Range/Units 20:43 06:23 WBC 18.8 H 16.0 H (4.5-10.0) K/mm3 Hgb 16.5 H 12.0 D (12.0-15.0) g/dL Hct 48.5 H 35.9 L (37.0-47.0) % Plt Count 174 101 L (150-375) k/mm3 BMP 11/04/24 20:43 Sodium 122 L Potassium 3.6 Chloride 93 L Carbon Dioxide 17 L BUN 36 H Creatinine 2.20 H Glucose 210 H Calcium 9.0 Cardiac Enzymes 11/04/24 11/05/24 Range/Units 20:43 02:47 Total Creatine Kinase 114 (30-135) U/L Troponin I 0.045 H* 0.025 D (0.000-0.034) ng/mL Liver Function 11/04/24 Range/Units 20:43 Total Bilirubin 1.0 (0.2-1.3) mg/dL AST 35 (14-36) U/L ALT 22 (6-35) U/L Alkaline Phosphatase 133 H (38-126) U/L Albumin 3.7 (3.5-5.1) g/dL Urine 11/04/24 Range/Units 23:39 Urine Color Yellow (Yellow) Urine Appearance Turbid H (Clear) Urine pH 5.5 (5.0-9.0) Ur Specific [place] 1.011 (1.001-1.035) Urine Protein 3+ H (Negative) mg/dL Urine Glucose (UA) Negative (Negative) mg/dL Assessment and Plan Assessment and plan (1) Hyponatremia: Code(s): E87.1 - Hypo-osmolality and hyponatremia Status: Acute Assessment and Plan: Hyponatremia with sodium of 122, has not had any issues in the past according to the patient -could be related to hypovolemia, patient also on fluoxetine -sodium 130 this morning. Continue to monitor closely if continues to increase too quickly, will start D5 water -see nephrology following (2) COVID-19: Code(s): U07.1 - COVID-19 Status: Acute Assessment and Plan: Patient tested positive for SARs CoV 2 PCR -started on dexamethasone -patient was on room air, not a candidate for remdesivir at this time -continue contact, airborne and droplet isolation and precautions (3) Atrial fibrillation with RVR: Code(s): I48.91 - Unspecified atrial fibrillation Status: Acute Assessment and Plan: AFib RVR in the ER with heart rate in the 140s -heart rate improved with IV fluids, IV metoprolol and IV Cardizem along with Cardizem infusion -Cardizem infusion was discontinued since patient was hypotensive -currently heart rates in the 80s and 90s, irregularly irregular, continue to monitor (4) Pyelonephritis: Code(s): N12 - Tubulo-interstitial nephritis, not specified as acute or chronic Status: Acute Assessment and Plan: 10/27: Status post cystoscopy -likely cause of UTI/pyelonephritis -urine cultures have been obtained, continue antibiotics as above (5) Sepsis: Qualifiers: Acute renal failure type: unspecified Sepsis acute organ dysfunction status: with acute organ dysfunction Sepsis type: sepsis due to unspecified organism Severe sepsis acute organ dysfunction type: acute renal failure Severe sepsis shock status: without septic shock Qualified Code(s): A41.9 - Sepsis, unspecified organism; R65.20 - Severe sepsis without septic shock; N17.9 - Acute kidney failure, unspecified Code(s): A41.9 - Sepsis, unspecified organism Status: Acute (6) Severe sepsis: Code(s): A41.9 - Sepsis, unspecified organism; R65.20 - Severe sepsis without septic shock Status: Acute Assessment and Plan: 11/04: Patient presented with generalized weakness, URI symptoms, flank pain in fall. Hypotensive in the ER with systolic in the 60s and heart rates in the 140s, lactic acid of 3.6 on admission, creatinine of 2.20, CO2 of 17, sodium of 122 -received 3.5 L of IV fluid bolus with improvement in her blood pressures and heart rate, she was also given metoprolol and Cardizem IV plus Cardizem infusion in the ER. Patient was transferred to the intermediate unit with Cardizem infusion was discontinued due to low blood pressures P -11/05: Maintenance Associate was asked to see the patient for low blood pressures, brought her to the ICU, right IJ central line was inserted. -start albumin for volume expansion -noninvasive cardiac output monitor did not reveal fluid responsiveness, but when ornamental metal worker apprentice placed a right IJ central line she seemed to be dry has barely any blood was flowing out of the port. -11/04: blood cultures have been obtained -11/04: urine cultures have been obtained -patient started on ceftriaxone(11/04), will increase to 2 g IV q.day and and vancomycin for possible pyelonephritis -continue to monitor urine output and renal function -blood pressures are stable at this time, will start norepinephrine if required to maintain MAP > 65 mmHg for adequate end organ perfusion (7) Acute kidney injury: Code(s): N17.9 - Acute kidney failure, unspecified Status: Acute Assessment and Plan: Acute kidney injury likely related to hypotension, severe sepsis, UTI/pyelonephritis, hypovolemia. Denies any kidney problems. -creatinine on admission was 2.20, -received adequate amount of IV fluid -will monitor urine output, renal function and electrolytes -creatinine down to 1.90 this morning, will continue to monitor -appreciate Nephrology evaluation and recommendation -CT scan of the abdomen and pelvis showed left hydroureter (8) Electrolyte abnormality: Code(s): E87.8 - Other disorders of electrolyte and fluid balance, not elsewhere classified Status: Acute Assessment and Plan: Will replace potassium and magnesium aggressively has history of AFib and was in AFib RVR in the ER Quality VTE Prophylaxis VTE prophylaxis: pharmacologic ordered Hospitalist MIPS Advance Care Plan I have confirmed that the patient's Advanced Care Plan is present, code status is documented, or surrogate decision maker is listed in patient medical record.: Yes Medication Reconciliation I have utilized all available resources to obtain, update and review the patients current medications (includes all prescriptions, OTC, herbals, cannabis, and nutritional supplements).: Yes
[2024-11-05 07:37] LABS: Alanine Aminotransferase 15 U/L (6-35); Albumin Level 2.1 g/dL (3.5-5.1); Alkaline Phosphatase 82 U/L (38-126); Anion Gap 8 mmol/L (4-12); Aspartate Amino Transferase 23 U/L (14-36); Bilirubin,Total 0.5 mg/dL (0.2-1.3); Blood Urea Nitrogen 37 mg/dL (7-17); Calcium 6.8 mg/dL (8.4-10.2); Carbon Dioxide 14 mmol/L (22-30); Chloride 108 mmol/L (98-107); Estimated CRCL calculation 28 ml/min; Estimated Glomerular Filt Rate 27; Glucose 175 mg/dL (65-110); Potassium 2.8 mmol/L (3.4-5.0); Sodium 130 mmol/L (137-145)
[2024-11-05 07:54] LABS: Hemoglobin A1C 6.5 % (<5.7)
[2024-11-05 08:17] LABS: Glucose Point of Care 179 mg/dl (65-105)
--- NOTE | 2024-11-05 08:38 | PC.NURSE ---
This pt arrived to the ICU 7 and this RN received report from ADONAY Hanley.
--- NOTE | 2024-11-05 09:11 | P.CONIN_ITS ---
Assessment and Plan Assessment and plan (1) Severe sepsis: Code(s): A41.9 - Sepsis, unspecified organism; R65.20 - Severe sepsis without septic shock Status: Acute Assessment and Plan: 11/04: Patient presented with generalized weakness, URI symptoms, flank pain in fall. Hypotensive in the ER with systolic in the 60s and heart rates in the 140s, lactic acid of 3.6 on admission, creatinine of 2.20, CO2 of 17, sodium of 122 -received 3.5 L of IV fluid bolus with improvement in her blood pressures and heart rate, she was also given metoprolol and Cardizem IV plus Cardizem infusion in the ER. Patient was transferred to the intermediate unit with Cardizem infusion was discontinued due to low blood pressures P -11/05: I was asked to see the patient for low blood pressures, brought her to the ICU, right IJ central line was inserted. -will start albumin for volume expansion -noninvasive cardiac output monitor did not reveal fluid responsiveness, but when I placed a right IJ central line she seemed to be dry has barely any blood was flowing out of the port. -11/04: blood cultures have been obtained -11/04: urine cultures have been obtained -patient started on ceftriaxone(11/04), will increase to 2 g IV q.day and and vancomycin for possible pyelonephritis -continue to monitor urine output and renal function -blood pressures are stable at this time, will start norepinephrine if required to maintain MAP > 65 mmHg for adequate end organ perfusion (2) Pyelonephritis: Code(s): N12 - Tubulo-interstitial nephritis, not specified as acute or chronic Status: Acute Assessment and Plan: 10/27: Status post cystoscopy -likely cause of UTI/pyelonephritis -urine cultures have been obtained, continue antibiotics as above (3) Acute kidney injury: Code(s): N17.9 - Acute kidney failure, unspecified Status: Acute Assessment and Plan: Acute kidney injury likely related to hypotension, severe sepsis, UTI/pyelonephritis, hypovolemia. Denies any kidney problems. -creatinine on admission was 2.20, -received adequate amount of IV fluid -will monitor urine output, renal function and electrolytes -creatinine down to 1.90 this morning, will continue to monitor -appreciate Nephrology evaluation and recommendation -CT scan of the abdomen and pelvis showed left hydroureter (4) Atrial fibrillation with RVR: Code(s): I48.91 - Unspecified atrial fibrillation Status: Acute Assessment and Plan: AFib RVR in the ER with heart rate in the 140s -heart rate improved with IV fluids, IV metoprolol and IV Cardizem along with Cardizem infusion -Cardizem infusion was discontinued since patient was hypotensive -currently heart rates in the 80s and 90s, irregularly irregular, continue to monitor (5) COVID-19: Code(s): U07.1 - COVID-19 Status: Acute Assessment and Plan: Patient tested positive for SARs CoV 2 PCR -started on dexamethasone -patient was on room air, not a candidate for remdesivir at this time -continue contact, airborne and droplet isolation and precautions (6) Hyponatremia: Code(s): E87.1 - Hypo-osmolality and hyponatremia Status: Acute Assessment and Plan: Hyponatremia with sodium of 122, has not had any issues in the past according to the patient -could be related to hypovolemia, patient also on fluoxetine -sodium 130 this morning. Continue to monitor closely if continues to increase too quickly, will start D5 water -see nephrology following (7) Electrolyte abnormality: Code(s): E87.8 - Other disorders of electrolyte and fluid balance, not elsewhere classified Status: Acute Assessment and Plan: Will replace potassium and magnesium aggressively has history of AFib and was in AFib RVR in the ER Plan DVT prophylaxis: Continue home Eliquis Stress ulcer prophylaxis: Not Indicated Nutrition: Heart healthy diet Code Status: Full code Critical Care Time Spent: 51 minutes Due to a high probability of clinically significant, life threatening deterioration, the patient required my highest level of preparedness to intervene emergently and I personally spent this critical care time directly and personally managing the patient. This critical care time included obtaining a history; examining the patient; pulse oximetry; ordering and review of studies; arranging urgent treatment with development of a management plan; evaluation of patient's response to treatment; frequent reassessment; and discussions with other providers. It was exclusive of separately billable procedures and treating other patients and teaching time. Please see Assessment and Plan section and the rest of the note for further information on patient assessment and treatment This dictation may have been done utilizing a voice recognition system. Attempts have been made to correct errors. However, there may be uncorrected grammatical, spelling, and recognitions errors present. [employer] Consult Note Consult date: 11/05/24 Reason for consult: Severe sepsis, UTI, COVID HPI: Rody Zaidi is a 63 year old female with past medical history of AFib on Eliquis and Plavix at home, history of bladder cancer, GERD, diabetes, COPD presented the ED on 11/04/2024 from home with complains of generalized weakness, URI symptoms, flank pain and a fall, denied hitting her head or loss of consciousness. She denies any fevers or chills, patient had a recent cystoscopy on 10/27/2024. In the ER she was noted to be in AFib RVR with heart rates in the 140s, systolic blood pressures in the 60s. Patient was given 3.5 L of IV fluid bolus with improvement in heart rate she was also given metoprolol and Cardizem and started on a Cardizem infusion which was discontinued upon arrival to the intermediate unit for hypotension. WBC 18.8, hemoglobin 16.5, platelets 174, sodium 122, potassium 2.8, CO2 17, creatinine 2.20, BUN 36, blood sugars 210, lactic acid was 3.6, repeat lactic acid was 3.1, magnesium of 1.5. LFTs are within normal limits, troponin was 0.045, C-reactive prone > 45.0, UA was reflective of UTI, patient was positive for COVID but negative for influenza and RSV. Patient started on ceftriaxone and transferred to intermediate Unit for further management CT brain: No acute intracranial hemorrhage, infarction or abnormal intracranial mass lesion. Old infarcts in the bilateral basal ganglia CT thoracic spine: No fracture, mild thoracic spondylosis CT cervical spine: No fracture, severe cervical spinal CT abdomen and pelvis: Mild left hydroureter from new from 06/28/2024, no urolithiasis, mild lumbar spondylosis 11/05: I was asked to see the patient by the hospitalist and blood pressures remained in the 80s systolic despite receiving 3 L IV fluids along with metoprolol and diltiazem IV push and diltiazem infusion for AFib. Patient was evaluated in the intermediate Unit, ill-appearing, blood pressures were in the 80 systolic when I evaluated her, heart rates in the 90s to 100s, atrial fibrillation. Potassium and magnesium a low. Low urine output. Right IJ central line was inserted in the ICU this morning on 11/05. Patient denies any shortness of breath, chest pain, abdominal pain, nausea, vomiting. Patient's appetite has been poor for solids and liquids for the last 5-6 days since admission. Patient smokes 1 packet per day for many years, last cigarette was 10 days ago. Patient also smokes marijuana, last she smoke was a month back. Denies any alcohol use Review of Systems 2 Review of Systems: All systems reviewed & are unremarkable except as noted in HPI and below PMFSH Past Medical History Medical History History of gastroesophageal reflux (GERD) History of diabetes mellitus History of COPD History of bladder cancer Social History Social History Smoking packs per day: 2 Smoking cigarettes per day: 40.0 Years smoked: 40 Smoking pack-years: 80.00 Smoking status: Current some day smoker Alcohol intake: never Substance use: never Do You Feel Safe in your Home?: Yes Lack of Transportation: No Lack of Food: Never True Current Housing: I Have Housing Concerned About Future Housing: No Difficulty Paying Gas/Electric Bills: No Difficulty Paying for Meds: No Currently Unemployed: No Education: High School Diploma/GED Difficulty w/ Childcare or Family Care: No Spiritual care concerns: No Meds Home Medications and Allergies Home Medications ?Medication ?Instructions ?Recorded ?Confirmed ?Type albuterol sulfate 2.5 mg/3 mL 2.5 mg inhalation Q6H PRN 11/05/24 11/05/24 History (0.083 %) solution for nebulization shortness of breath or wheezing albuterol sulfate 90 mcg/actuation 2 puff inhalation Q6H PRN 11/05/24 11/05/24 History aerosol inhaler shortness of breath or wheezing apixaban 5 mg tablet (Eliquis) 5 mg PO Q12H 11/05/24 11/05/24 History budesonide-formoterol HFA 160 2 puff inhalation Q12H 11/05/24 11/05/24 History mcg-4.5 mcg/actuation aerosol inhaler (Symbicort) clopidogrel 75 mg tablet 75 mg PO DAILY 11/05/24 11/05/24 History ezetimibe 10 mg tablet 10 mg PO DAILY 11/05/24 11/05/24 History fenofibrate 120 mg tablet 120 mg PO DAILY 11/05/24 11/05/24 History fluoxetine 40 mg capsule 40 mg PO QPM 11/05/24 11/05/24 History losartan 100 mg tablet 100 mg PO DAILY 11/05/24 11/05/24 History metformin 500 mg tablet 500 mg PO BID 11/05/24 11/05/24 History montelukast 10 mg tablet 10 mg PO QPM 11/05/24 11/05/24 History sotalol 120 mg tablet 120 mg PO Q12H 11/05/24 11/05/24 History Allergies Allergy/AdvReac Type Severity Reaction Status Date / Time No Known Allergies Allergy Verified 11/04/24 20:49 Vital Signs Vital Signs - 24 hr 11/04/24 20:04 11/04/24 20:32 11/04/24 20:34 Temperature 98.4 F Pulse Rate 113 H 119 H 101 H Respiratory Rate 26 H 19 22 H Blood Pressure 68/54 L 78/51 L Pulse Oximetry 97 96 Oxygen Delivery Room Air Oxygen Flow Rate 11/04/24 20:35 11/04/24 21:56 11/05/24 00:43 Temperature Pulse Rate 81 148 H Respiratory Rate 22 H Blood Pressure 106/89 Pulse Oximetry 95 100 Oxygen Delivery Nasal Cannula Oxygen Flow Rate 4 11/05/24 01:16 11/05/24 02:00 11/05/24 02:15 Temperature Pulse Rate 114 H 99 128 H Respiratory Rate 22 H Blood Pressure 128/70 102/56 L 104/69 Pulse Oximetry 99 Oxygen Delivery Oxygen Flow Rate 11/05/24 02:34 11/05/24 04:00 11/05/24 04:00 Temperature 98.3 F Pulse Rate 142 H 102 H Respiratory Rate 22 H 19 Blood Pressure 106/61 73/41 L Pulse Oximetry 100 97 97 Oxygen Delivery Nasal Cannula Oxygen Flow Rate 3 11/05/24 04:00 11/05/24 05:00 11/05/24 06:00 Temperature Pulse Rate 114 H 108 H 98 Respiratory Rate Blood Pressure 92/47 L Pulse Oximetry Oxygen Delivery Oxygen Flow Rate Exam 2 Narrative: General: Pleasant female, in no acute distress HEENT:? Pupils equal reactive, sclera is clear, dry oral mucosa Neck:? Supple Respiratory:? Clear to auscultation bilaterally, decreased at bases, no wheeze Cardiac:? Irregularly irregular, rate controlled in the 80s-90s Abdomen:? Soft, nontender, nondistended, obese, hypoactive bowel sounds, old surgical scars noted Extremities:? Trace edema in lower extremities, palpable pedal pulses Neuro:? Patient is awake, alert, oriented, nonfocal, follows simple commands and answers to questions appropriately Skin:? Bilateral upper extremity bruising noted Psych:? Flat affect, normal maintain Results Labs 11/05/24 06:23 11/05/24 10:18 Labs: Short CBC 11/04/24 11/05/24 Range/Units 20:43 06:23 WBC 18.8 H 16.0 H (4.5-10.0) K/mm3 Hgb 16.5 H 12.0 D (12.0-15.0) g/dL Hct 48.5 H 35.9 L (37.0-47.0) % Plt Count 174 101 L (150-375) k/mm3 BMP 11/04/24 11/05/24 20:43 06:23 Sodium 122 L 130 L Potassium 3.6 2.8 L* Chloride 93 L 108 H Carbon Dioxide 17 L 14 L BUN 36 H 37 H Creatinine 2.20 H 1.90 H Glucose 210 H 175 H Calcium 9.0 6.8 L Cardiac Enzymes 11/04/24 11/05/24 Range/Units 20:43 02:47 Total Creatine Kinase 114 (30-135) U/L Troponin I 0.045 H* 0.025 D (0.000-0.034) ng/mL Liver Function 11/04/24 11/05/24 Range/Units 20:43 06:23 Total Bilirubin 1.0 0.5 (0.2-1.3) mg/dL AST 35 23 (14-36) U/L ALT 22 15 (6-35) U/L Alkaline Phosphatase 133 H 82 (38-126) U/L Albumin 3.7 2.1 L (3.5-5.1) g/dL Urine 11/04/24 Range/Units 23:39 Urine Color Yellow (Yellow) Urine Appearance Turbid H (Clear) Urine pH 5.5 (5.0-9.0) Ur Specific [place] 1.011 (1.001-1.035) Urine Protein 3+ H (Negative) mg/dL Urine Glucose (UA) Negative (Negative) mg/dL Quality VTE Prophylaxis VTE prophylaxis: pharmacologic ordered Hospitalist MIPS Advance Care Plan I have confirmed that the patient's Advanced Care Plan is present, code status is documented, or surrogate decision maker is listed in patient medical record.: Yes Medication Reconciliation I have utilized all available resources to obtain, update and review the patients current medications (includes all prescriptions, OTC, herbals, cannabis, and nutritional supplements).: Yes
[2024-11-05] MEDS: IPRATROPIUM 0.5 MG/ALBUTEROL SULFATE 2.5 MG AMPUL.NEB 3 ML INHALATION ×3 (09:24→21:17)
[2024-11-05] MEDS: BUDESONIDE RESPULE NEB 0.5 MG/2 ML AMP INHALATION ×2 (09:24→21:18)
--- NOTE | 2024-11-05 09:34 | P.CONNP_ITS ---
Assessment and Plan Assessment and plan (1) Acute kidney injury: Code(s): N17.9 - Acute kidney failure, unspecified Status: Acute Assessment and Plan: The patient has acute kidney injury. She says that she has no history of kidney problems. Her creatinine on admission was 2.2 and is now down to 1.9. Urine shows proteinuria hematuria and pyuria. Etiology of her JAYLEN is probably multifactorial. Most like the patient has an element of dehydration. She does may eating and drinking as well as she should in the last week. She has probable urosepsis with her hypotension and elevated white count. She is getting antibiotics for this. The patient has COVID. Sometimes this can affect the kidneys. The patient did not receive contrast. There other causes of renal failure as well such as obstruction, inflammation, allergy, and infiltration. These are all less likely. But to rule out any unexpected causes will check a CK, urine electrolytes, and a renal ultrasound. She is getting antibiotics. Her blood pressure was quite low and is better now after some fluids. Will keep an eye on the kidney function as she continues with her therapy. (2) Hyponatremia: Code(s): E87.1 - Hypo-osmolality and hyponatremia Status: Acute Assessment and Plan: The patient has low sodium. She has never heard of this issue in the past. She looks dehydrated which is probably the cause of the low sodium. She also has probable been drinking more than eating leading to an imbalance of free water and osmolar intake. In addition the patient is on fluoxetine at home which can also contribute to hyponatremia, which may not be the case when she is healthy but may contribute to the other issues when dehydrated. Other causes of hyponatremia include hypothyroidism, cortisol, cancer, pulmonary issues, and NOTEMAN issues. She has had a CT of the brain which was okay. Chest x-ray was clear. She does have bladder cancer but this would be a less likely cause of hyponatremia. Will check hormones. Sodium corrected from 122-130 overnight. We will watch the sodium level closely. If it corrects anymore we will need to give D5W. (3) COVID-19: Code(s): U07.1 - COVID-19 Status: Acute Assessment and Plan: The patient received steroids. She will be getting remdesivir. (4) Atrial fibrillation with RVR: Code(s): I48.91 - Unspecified atrial fibrillation Status: Acute Assessment and Plan: The patient has atrial fibrillation on a long-term basis. Heart rate was good this morning at 94 (5) Sepsis: Qualifiers: Acute renal failure type: unspecified Sepsis acute organ dysfunction status: with acute organ dysfunction Sepsis type: sepsis due to unspecified organism Severe sepsis acute organ dysfunction type: acute renal failure S evere sepsis shock status: without septic shock Qualified Code(s): A41.9 - Sepsis, unspecified organism; R65.20 - Severe sepsis without septic shock; N17.9 - Acute kidney failure, unspecified Code(s): A41.9 - Sepsis, unspecified organism Status: Acute Plan The patient has urosepsis. Cultures are pending. She is on ceftriaxone and vancomycin. History of Present Illness Reason for Consult Consult date: 11/05/24 Chief Complaint Chief complaint: Sepsis, Pyelonephritis, Afib with RVR History of Present Illness Narrative: Rody is a very pleasant 63-year-old lady who has multiple medical problems including diabetes, hypertension, atrial fibrillation, diverticulosis, bladder cancer, COPD, hyperlipidemia, peripheral vascular disease status post stents. The patient has a bladder cancer. She gets occasional cystoscopies to see how therapy is progressing. She says that she often has a bladder infection after each cystoscopy. She had her last cystoscopy on October 27. She did not have any pain with urination or cloudy urine however after that. One week ago the patient started having a cough and shortness of breath. She also had weakness aches and pains. The patient's symptoms progressed. She fell yesterday, and so she came to the ER yesterday. In the ER she was evaluated and found to have pyuria, an elevated white cell count, a sodium of 122, bicarbonate of 17, and an elevated creatinine of 2.2. Multiple CT scans showed no injury to the head or C-spine/T-spine. Her chest x- ray was clear. She did not receive any contrast Because of the low sodium and high creatinine renal consultation was requested Review of Systems 2 Constitutional: Constitutional: Reports no additional constitutional complaints Eyes: Eyes: Reports no additional eye complaints ENT: Reports system reviewed and no additional complaints, except as documented Cardiovascular: Cardiovascular: Reports no additional cardiovascular complaints Respiratory: Respiratory: Reports no additional respiratory complaints Gastrointestinal: Gastrointestinal: Reports no additional gastrointestinal complaints Genitourinary: Genitourinary: Reports no additional female genitourinary complaints Musculoskeletal: Musculoskeletal: Reports no additional musculoskeletal complaints Integumentary/Breasts: Skin/Breast: Reports system reviewed and no additional complaints, except as docu Neurologic: Reports system reviewed and no additional complaints, except as documented Psychiatric: Psychiatric: Reports no additional psychiatric complaints Endocrine: Endocrine: Reports no additional endocrine complaints [facility] Past Medical History Medical History History of gastroesophageal reflux (GERD) History of diabetes mellitus History of COPD History of bladder cancer Social History Social History Smoking packs per day: 2 Smoking cigarettes per day: 40.0 Years smoked: 40 Smoking pack-years: 80.00 Smoking status: Current some day smoker Alcohol intake: never Substance use: never Do You Feel Safe in your Home?: Yes Lack of Transportation: No Lack of Food: Never True Current Housing: I Have Housing Concerned About Future Housing: No Difficulty Paying Gas/Electric Bills: No Difficulty Paying for Meds: No Currently Unemployed: No Education: High School Diploma/GED Difficulty w/ Childcare or Family Care: No Spiritual care concerns: No Meds Home Medications and Allergies Home Medications ?Medication ?Instructions ?Recorded ?Confirmed ?Type albuterol sulfate 2.5 mg/3 mL 2.5 mg inhalation Q6H PRN 11/05/24 11/05/24 History (0.083 %) solution for nebulization shortness of breath or wheezing albuterol sulfate 90 mcg/actuation 2 puff inhalation Q6H PRN 11/05/24 11/05/24 History aerosol inhaler shortness of breath or wheezing apixaban 5 mg tablet (Eliquis) 5 mg PO Q12H 11/05/24 11/05/24 History budesonide-formoterol HFA 160 2 puff inhalation Q12H 11/05/24 11/05/24 History mcg-4.5 mcg/actuation aerosol inhaler (Symbicort) clopidogrel 75 mg tablet 75 mg PO DAILY 11/05/24 11/05/24 History ezetimibe 10 mg tablet 10 mg PO DAILY 11/05/24 11/05/24 History fenofibrate 120 mg tablet 120 mg PO DAILY 11/05/24 11/05/24 History fluoxetine 40 mg capsule 40 mg PO QPM 11/05/24 11/05/24 History losartan 100 mg tablet 100 mg PO DAILY 11/05/24 11/05/24 History metformin 500 mg tablet 500 mg PO BID 11/05/24 11/05/24 History montelukast 10 mg tablet 10 mg PO QPM 11/05/24 11/05/24 History sotalol 120 mg tablet 120 mg PO Q12H 11/05/24 11/05/24 History Allergies Allergy/AdvReac Type Severity Reaction Status Date / Time No Known Allergies Allergy Verified 11/04/24 20:49 Vital Signs Vital Signs - 24 hr 11/04/24 20:04 11/04/24 20:32 11/04/24 20:34 Temperature 98.4 F Pulse Rate 113 H 119 H 101 H Respiratory Rate 26 H 19 22 H Blood Pressure 68/54 L 78/51 L Pulse Oximetry 97 96 Oxygen Delivery Room Air Oxygen Flow Rate Fraction of Inspired Oxygen 11/04/24 20:35 11/04/24 21:56 11/05/24 00:43 Temperature Pulse Rate 81 148 H Respiratory Rate 22 H Blood Pressure 106/89 Pulse Oximetry 95 100 Oxygen Delivery Nasal Cannula Oxygen Flow Rate 4 Fraction of Inspired Oxygen 11/05/24 01:16 11/05/24 02:00 11/05/24 02:15 Temperature Pulse Rate 114 H 99 128 H Respiratory Rate 22 H Blood Pressure 128/70 102/56 L 104/69 Pulse Oximetry 99 Oxygen Delivery Oxygen Flow Rate Fraction of Inspired Oxygen 11/05/24 02:34 11/05/24 04:00 11/05/24 04:00 Temperature 98.3 F Pulse Rate 142 H 102 H Respiratory Rate 22 H 19 Blood Pressure 106/61 73/41 L Pulse Oximetry 100 97 97 Oxygen Delivery Nasal Cannula Oxygen Flow Rate 3 Fraction of Inspired Oxygen 11/05/24 04:00 11/05/24 05:00 11/05/24 06:00 Temperature Pulse Rate 114 H 108 H 98 Respiratory Rate Blood Pressure 92/47 L Pulse Oximetry Oxygen Delivery Oxygen Flow Rate Fraction of Inspired Oxygen 11/05/24 08:00 11/05/24 08:17 11/05/24 08:30 Temperature 98.1 F Pulse Rate 96 Respiratory Rate 24 H Blood Pressure 87/59 L 83/45 L 80/51 L Pulse Oximetry 95 Oxygen Delivery Oxygen Flow Rate Fraction of Inspired Oxygen 11/05/24 08:30 11/05/24 08:40 11/05/24 08:50 Temperature Pulse Rate Respiratory Rate Blood Pressure 88/57 L 93/61 L 96/63 L Pulse Oximetry Oxygen Delivery Oxygen Flow Rate Fraction of Inspired Oxygen 11/05/24 09:24 11/05/24 09:24 11/05/24 09:32 Temperature Pulse Rate 94 94 Respiratory Rate 22 H 18 Blood Pressure Pulse Oximetry 98 Oxygen Delivery Nasal Cannula Oxygen Flow Rate 2 Fraction of Inspired Oxygen 28 Exam 2 Narrative: Exam Narrative: Well developed well-nourished female in no acute distress Skin is warm and dry without rash Head normocephalic atraumatic Eyes normal sclerae and conjunctivae Mouth normal lips teeth and gums Neck no nodes no thyromegaly no carotid bruits Axillae no nodes Back no CVA tenderness Lungs symmetric and clear to auscultation and percussion Heart normal rate and irregularly irregular rhythm without rub or gallop Abdomen bowel sounds positive soft nontender, no HSM, masses, or bruits. Extremities no cyanosis, clubbing, or edema Pulses 2+ equal in radial arteries Psychological not anxious or depressed Neuro alert and oriented x3 motor 5/5 cranial nerves 2-12 intact reflexes 2+ and equal in the biceps and patellar tendons cerebellar normal rapid alternating movements Results Lab Results 11/05/24 06:23 11/05/24 06:23 Lab results: Most recent lab results Calcium 6.8 mg/dL (8.4-10.2) L 11/05/24 06:23 Magnesium 1.5 mg/dL (1.6-2.3) L 11/05/24 02:47
[2024-11-05] MEDS: KCL 40 MEQ/WATER 100 ML 100 ML 25 ML IVPB (10:14)
[2024-11-05 10:29] LABS: Sodium 131 mmol/L (137-145)
[2024-11-05] MEDS: APIXABAN 5 MG TABLET PO ×2 (10:30→20:48)
[2024-11-05] MEDS: VANCOMYCIN 2,000 MG/NS 500 ML 2,000 MG/500 ML BAG 250 MG IVPB (10:31)
[2024-11-05] MEDS: cefTRIAXone 2 GM/NS 100 ML 2 GM/100 ML BAG IVPB (10:31)
[2024-11-05] MEDS: POTASSIUM CHLORIDE 20 MEQ ER TABLET 40 MEQ PO (10:31)
[2024-11-05 10:32] LABS: Creatine Kinase 56 U/L (30-135)
[2024-11-05 10:34] LABS: Sodium 131 mmol/L (137-145)
[2024-11-05] MEDS: ALBUMIN HUMAN 25% 25 GM/100 ML 100 ML IVPB ×3 (11:00→23:43)
[2024-11-05 11:05] LABS: Sodium Urine Random 26 meq/L
[2024-11-05 11:07] LABS: Creatinine Urine 57.2 mg/dL; Total Protein Urine Random 106 mg/dL; Ur Ttl Prot Creatinine Ratio 1.85 mg/mg (0-0.20)
[2024-11-05 11:14] LABS: Thyroid Stimulating Hormone Reflex 0.774 uIU/mL (0.465-4.68)
--- NOTE | 2024-11-05 11:27 | WPDURCON ---
Assessment and Plan Assessment and plan (1) Severe sepsis: Code(s): A41.9 - Sepsis, unspecified organism; R65.20 - Severe sepsis without septic shock Status: Acute (2) Pyelonephritis: Code(s): N12 - Tubulo-interstitial nephritis, not specified as acute or chronic Status: Acute Assessment and Plan: -hx of bladder Ca, with suspected left pyelonephritis - Cr improving with hydration and conservative measures - no evidence of obstructive stone on imaging, suspect hydro is due to ascending UTI and edema - monitor serial Cr, continue broad spectrum IV abx, await cultures Urology Consult Note HPI Date Seen: 11/05/24 Requesting Physician: Marva Lei DO Primary Care Provider: Matti Balderas, Consult Narrative Narrative: Rody Zaidi is a 63 year old female with a hx of bladder Ca ( managed by her primary urologist at [facility]) who was admitted to ICU for UTI and covid. Pt states she usually gets UTI after cystoscopy. She had cystoscopy 10/27/24 which she states wa snormal and no evidence of recurrent bladder Ca. She has been experiencing frequency, urgency and dysuria and generalized abdominal pain for past few days. New onset cough. Was admitted and placed on broad spectum IV abx. Was transferred to ICU for supportive care given ongoing hypotension and COVID +. CT scan shows suspected left pyelonephritis, mild mild hydronephrosis , no stones. Denies a significant history of kidney stone disease. Review of Systems Constitutional: Constitutional: Reports body ache(s), Reports fatigue and Reports lethargy Eyes: Eyes: Reports no additional eye complaints ENT: Reports nasal discharge Cardiovascular: Cardiovascular: Reports no additional cardiovascular complaints Respiratory: Respiratory: Reports cough Gastrointestinal: Gastrointestinal: Reports abdominal pain and Reports nausea Genitourinary: Genitourinary: Reports dysuria Musculoskeletal: Musculoskeletal: Reports no additional musculoskeletal complaints [facility] Past Medical History Medical History History of gastroesophageal reflux (GERD) History of diabetes mellitus History of COPD History of bladder cancer Social History Social History Smoking packs per day: 2 Smoking cigarettes per day: 40.0 Years smoked: 40 Smoking pack-years: 80.00 Smoking status: Current some day smoker Alcohol intake: never Substance use: never Do You Feel Safe in your Home?: Yes Lack of Transportation: No Lack of Food: Never True Current Housing: I Have Housing Concerned About Future Housing: No Difficulty Paying Gas/Electric Bills: No Difficulty Paying for Meds: No Currently Unemployed: No Education: High School Diploma/GED Difficulty w/ Childcare or Family Care: No Spiritual care concerns: No Meds Home Medications and Allergies Home Medications ?Medication ?Instructions ?Recorded ?Confirmed ?Type albuterol sulfate 2.5 mg/3 mL 2.5 mg inhalation Q6H PRN 11/05/24 11/05/24 History (0.083 %) solution for nebulization shortness of breath or wheezing albuterol sulfate 90 mcg/actuation 2 puff inhalation Q6H PRN 11/05/24 11/05/24 History aerosol inhaler shortness of breath or wheezing apixaban 5 mg tablet (Eliquis) 5 mg PO Q12H 11/05/24 11/05/24 History budesonide-formoterol HFA 160 2 puff inhalation Q12H 11/05/24 11/05/24 History mcg-4.5 mcg/actuation aerosol inhaler (Symbicort) clopidogrel 75 mg tablet 75 mg PO DAILY 11/05/24 11/05/24 History ezetimibe 10 mg tablet 10 mg PO DAILY 11/05/24 11/05/24 History fenofibrate 120 mg tablet 120 mg PO DAILY 11/05/24 11/05/24 History fluoxetine 40 mg capsule 40 mg PO QPM 11/05/24 11/05/24 History losartan 100 mg tablet 100 mg PO DAILY 11/05/24 11/05/24 History metformin 500 mg tablet 500 mg PO BID 11/05/24 11/05/24 History montelukast 10 mg tablet 10 mg PO QPM 11/05/24 11/05/24 History sotalol 120 mg tablet 120 mg PO Q12H 11/05/24 11/05/24 History Allergies Allergy/AdvReac Type Severity Reaction Status Date / Time No Known Allergies Allergy Verified 11/04/24 20:49 Vital Signs Vital Signs - 24 hr 11/04/24 20:04 11/04/24 20:32 11/04/24 20:34 Temperature 36.9 C Pulse Rate 113 H 119 H 101 H Respiratory Rate 26 H 19 22 H Blood Pressure 68/54 L 78/51 L Pulse Oximetry 97 96 Oxygen Delivery Room Air Oxygen Flow Rate Fraction of Inspired Oxygen 11/04/24 20:35 11/04/24 21:56 11/05/24 00:43 Temperature Pulse Rate 81 148 H Respiratory Rate 22 H Blood Pressure 106/89 Pulse Oximetry 95 100 Oxygen Delivery Nasal Cannula Oxygen Flow Rate 4 Fraction of Inspired Oxygen 11/05/24 01:16 11/05/24 02:00 11/05/24 02:15 Temperature Pulse Rate 114 H 99 128 H Respiratory Rate 22 H Blood Pressure 128/70 102/56 L 104/69 Pulse Oximetry 99 Oxygen Delivery Oxygen Flow Rate Fraction of Inspired Oxygen 11/05/24 02:34 11/05/24 04:00 11/05/24 04:00 Temperature 36.8 C Pulse Rate 142 H 102 H Respiratory Rate 22 H 19 Blood Pressure 106/61 73/41 L Pulse Oximetry 100 97 97 Oxygen Delivery Nasal Cannula Oxygen Flow Rate 3 Fraction of Inspired Oxygen 11/05/24 04:00 11/05/24 05:00 11/05/24 06:00 Temperature Pulse Rate 114 H 108 H 98 Respiratory Rate Blood Pressure 92/47 L Pulse Oximetry Oxygen Delivery Oxygen Flow Rate Fraction of Inspired Oxygen 11/05/24 08:00 11/05/24 08:00 11/05/24 08:00 Temperature 36.7 C Pulse Rate 96 94 94 Respiratory Rate 24 H 18 Blood Pressure 87/59 L Pulse Oximetry 95 98 Oxygen Delivery Room Air Oxygen Flow Rate Fraction of Inspired Oxygen 11/05/24 08:17 11/05/24 08:30 11/05/24 08:30 Temperature Pulse Rate Respiratory Rate Blood Pressure 83/45 L 80/51 L 88/57 L Pulse Oximetry Oxygen Delivery Oxygen Flow Rate Fraction of Inspired Oxygen 11/05/24 08:40 11/05/24 08:50 11/05/24 09:24 Temperature Pulse Rate Respiratory Rate Blood Pressure 93/61 L 96/63 L Pulse Oximetry 98 Oxygen Delivery Nasal Cannula Oxygen Flow Rate 2 Fraction of Inspired Oxygen 11/05/24 09:24 11/05/24 09:32 Temperature Pulse Rate 94 94 Respiratory Rate 22 H 18 Blood Pressure Pulse Oximetry Oxygen Delivery Oxygen Flow Rate Fraction of Inspired Oxygen Exam Const: General: uncomfortable Eyes: General: appearance normal, both eyes and all related structures Sclera: sclerae normal Resp: Effort & Inspection: normal respiratory effort Cardio: Rate: regular rate GI: Inspection: non-distended GI Palp: Yes Soft to palpation and No Guarding due to palpation present (GI) Neuro: Speech: normal speech Results Labs 11/05/24 06:23 11/05/24 10:20 Labs: Short CBC 11/04/24 11/05/24 Range/Units 20:43 06:23 WBC 18.8 H 16.0 H (4.5-10.0) K/mm3 Hgb 16.5 H 12.0 D (12.0-15.0) g/dL Hct 48.5 H 35.9 L (37.0-47.0) % Plt Count 174 101 L (150-375) k/mm3 BMP 11/04/24 11/05/24 11/05/24 20:43 06:23 10:18 Sodium 122 L 130 L 131 L Potassium 3.6 2.8 L* Chloride 93 L 108 H Carbon Dioxide 17 L 14 L BUN 36 H 37 H Creatinine 2.20 H 1.90 H Glucose 210 H 175 H Calcium 9.0 6.8 L 11/05/24 10:20 Sodium 131 L Potassium Chloride Carbon Dioxide BUN Creatinine Glucose Calcium Cardiac Enzymes 11/04/24 11/05/24 11/05/24 Range/Units 20:43 02:47 10:18 Total Creatine Kinase 114 56 (30-135) U/L Troponin I 0.045 H* 0.025 D (0.000-0.034) ng/mL Liver Function 11/04/24 11/05/24 Range/Units 20:43 06:23 Total Bilirubin 1.0 0.5 (0.2-1.3) mg/dL AST 35 23 (14-36) U/L ALT 22 15 (6-35) U/L Alkaline Phosphatase 133 H 82 (38-126) U/L Albumin 3.7 2.1 L (3.5-5.1) g/dL Urine 11/04/24 Range/Units 23:39 Urine Color Yellow (Yellow) Urine Appearance Turbid H (Clear) Urine pH 5.5 (5.0-9.0) Ur Specific [place] 1.011 (1.001-1.035) Urine Protein 3+ H (Negative) mg/dL Urine Glucose (UA) Negative (Negative) mg/dL Imaging My impression: mild left hydro with out stones
[2024-11-05 11:54] LABS: Glucose Point of Care 183 mg/dl (65-105)
[2024-11-05] MEDS: CENTRAL LINE FLUSH 10 ML IV PUSH ×2 (13:13→20:49)
[2024-11-05] MEDS: ACETAMINOPHEN 325 MG TABLET 650 MG PO ×2 (13:13→20:48)
[2024-11-05] MEDS: CENTRAL LINE FLUSH 20 ML IV PUSH (13:14)
[2024-11-05] MEDS: INSULIN ASPART (*BKC) 100 UNITS/ML SUB-Q (16:05)
[2024-11-05 16:22] LABS: Glucose Point of Care 218 mg/dl (65-105)
[2024-11-05 16:52] LABS: Anion Gap 8 mmol/L (4-12); Blood Urea Nitrogen 32 mg/dL (7-17); Calcium 7.6 mg/dL (8.4-10.2); Carbon Dioxide 16 mmol/L (22-30); Chloride 107 mmol/L (98-107); Estimated CRCL calculation 33 ml/min; Estimated Glomerular Filt Rate 33; Glucose 210 mg/dL (65-110); Magnesium 1.9 mg/dL (1.6-2.3); Sodium 131 mmol/L (137-145)
[2024-11-05 21:02] LABS: Glucose Point of Care 162 mg/dl (65-105)
[2024-11-06] VITALS (13 sets, daily range): BP systolic 114–150; BP diastolic 61–96; PULSE 87–99; RESP 16–33; TEMP 36.6–36.9; O2SAT 97–100
--- NOTE | 2024-11-06 | ECHO_ITS ---
Patient Info Name: Rody Zaidi Age: 63 years : 1960 Gender: Female Ht: 63 in Wt: 181 lbs BSA: 1.94 m2 HR: 99 bpm BP: 139 / 89 mmHg Technical Quality: Fair Exam Date: 11/06/2024 12:00 PM Exam Location: Echo Lab Patient Status: Inpatient Admit Date: 11/06/2024 Staff Ordering Physician: Manny Morris MD [employer]iter: Davidson Oliver RDCS Attending Provider: Marva Lei DO Exam Type: CA echo doppler color flow Study Info Indications - hypotension Complete two-dimensional, color flow and Doppler transthoracic echocardiogram is performed. Covid Positive. Summary 1. Complete two-dimensional, color flow and Doppler transthoracic echocardiogram is performed. 2. The left ventricle is normal in size and systolic function. There is mild concentric left ventricular hypertrophy. The left ventricular ejection fraction is visually estimated to be 50-55%. 3. The right ventricle is normal in size and systolic function. 4. There is no significant valvular disease in this study. 5. Dilated inferior vena cava with <50% collapse upon inspiration consistent with significantly elevated right atrial pressure, 15 mmHg. 6. Technically difficult study with limited views. Left Ventricle The left ventricle is normal in size and systolic function. There is mild concentric left ventricular hypertrophy. The left ventricular ejection fraction is visually estimated to be 50-55%. Right Ventricle The right ventricle is normal in size and systolic function. Left Atria The left atrium is normal size. Right Atria The right atrium is normal size. Atrial Septum The atrial septum is not well visualized. Aortic Valve The aortic valve is not well visualized. There is no Doppler evidence of hemodynamically significant stenosis. There is no aortic regurgitation noted in this study. Pulmonic Valve The pulmonic valve is not well visualized. There is no color Doppler evidence of pulmonic valve regurgitation. Mitral Valve The mitral valve is normal. There is no mitral regurgitation. Tricuspid Valve The tricuspid valve is not well visualized. There is trace tricuspid valve regurgitation. Pericardium/Pleural Pericardium is normal in appearance with no evidence for significant pericardial effusion. Inferior Vena Cava Dilated inferior vena cava with <50% collapse upon inspiration consistent with significantly elevated right atrial pressure, 15 mmHg. Aorta The aortic root at the level of the sinus of Valsalva measures 2.1 cm in diameter. Left Ventricular Outflow Tract Name Value Normal LVOT 2D LVOT Diameter 1.7 cm LVOT Doppler LVOT Peak Gradient 4 mmHg LVOT Mean Gradient 3 mmHg LVOT VTI 22 cm LVOT VTI/AV VTI Ratio 0.9 LVOT Stroke Volume 52 ml LVOT CO 4.2 l/min LVOT CI 2.1 l/min/m2 Pulmonic Valve Name Value Normal RVOT Doppler RVOT Peak Gradient 3 mmHg PV Doppler PV Peak Gradient 9 mmHg Mitral Valve Name Value Normal MV Doppler MV Decel [place] 1,410 cm/s2 MV PHT 25 ms MV Area (PHT) 8.7 cm2 4.0-5.0 MV Diastolic Function MV E Peak Velocity 122 cm/s MV A Peak Velocity 2 cm/s MV E/A 78.9 MV Decel Time 87 ms MV Annular TDI MV E/e' (Septal) 15.2 <=8.0 MV E/e' (Lateral) 14.7 <=8.0 MV E/e' (Average) 15.0 Tricuspid Valve Name Value Normal TV Regurgitation Doppler TR Peak Velocity 310 cm/s TR Peak Gradient 29 mmHg Estimated PAP/RSVP RA Pressure 15 mmHg <=5 PA Systolic Pressure 54 mmHg <36 RV Systolic Pressure 54 mmHg <36 Aorta Name Value Normal Ascending Aorta Ao Root Diameter (MM) 2.6 cm Ao Root Diam Index (MM) 1.4 cm/m2 Aortic Valve Name Value Normal AV Doppler AV Peak Velocity 173 cm/s AV Peak Gradient 9 mmHg AV Mean Gradient 5 mmHg AV VTI 26 cm AV Area (Cont Eq VTI) 2.0 cm2 >=3.0 AV Area (Cont Eq Efren) 1.6 cm2 AV Regurgitation 2D LVOT Area 2.3 cm2 Ventricles Name Value Normal LV Dimensions 2D/MM IVS Diastolic Thickness (2D) 1.5 cm 0.6-1.0 LVID Diastole (2D) 4.1 cm 3.8-5.2 LVIW Diastolic Thickness (2D) 1.1 cm 0.6-0.9 LVID Systole (2D) 3.0 cm 2.2-3.5 LVOT Diameter 1.7 cm LV Mass (2D Cubed) 188.00 g 67.00-162.00 LV Mass Index (2D Cubed) 97 g/m2 43-95 Relative Wall Thickness (2D) 0.52 LV Fractional Shortening/Ejection Fraction 2D/MM LV Fractional Shortening (2D) 27 % 27-45 LV EF (2D Teicholz) 54 % 54-74 LV Diastolic Volume (4C MOD) 72 ml LV EF (4C MOD) 48 % LV Diastolic Volume (2C MOD) 43 ml LV EF (2C MOD) 55 % LV Diastolic Volume (BP MOD) 58 ml 46-106 LV Diastolic Volume Index (BP MOD) 30 ml/m2 29-61 LV Systolic Volume (BP MOD) 28 ml 14-42 LV Systolic Volume Index (BP MOD) 14 ml/m2 8-24 LV EF (BP MOD) 52 % 54-74 LV Diastolic Length (4C) 6.9 cm LV Systolic Length (4C) 5.9 cm LV Stroke Volume (4C MOD) 34 ml Atria Name Value Normal LA Dimensions LA Dimension (MM) 4.3 cm 2.7-3.8 LA Volume (4C A-L) 52 ml LA Volume (BP A-L) 59 ml RA Dimensions RA Area (4C) 18.9 cm2 <=18.0 Report Signatures
[2024-11-06] MEDS: IPRATROPIUM 0.5 MG/ALBUTEROL SULFATE 2.5 MG AMPUL.NEB 3 ML INHALATION ×2 (03:04→20:24)
[2024-11-06] MEDS: CENTRAL LINE FLUSH 10 ML IV PUSH ×3 (06:29→21:30)
[2024-11-06] MEDS: dexAMETHasone SOD PHOS INJ 10 MG/ML 1 ML VIAL 6 MG IV PUSH (06:30)
[2024-11-06] MEDS: ALBUMIN HUMAN 25% 25 GM/100 ML 100 ML IVPB (06:34)
[2024-11-06 06:40] LABS: Basophils Percent Auto 0.3 % (0.2-1.2); Eosinophils Absolute Auto 0.1 K/mm3 (0-0.3); Eosinophils Percent Auto 0.4 % (0-4.4); Immature Granulocyte Absolute 0.11 K/mm3 (0.00-0.031); Immature Granulocyte Percent A 0.9 % (0-0.5); Immature Platelet Fraction Pct 8.5 % (0.9-11.2); Lymphocytes Percent Auto 3.1 % (18.3-44.2); Mean Corpuscular HGB Conc 34.4 g/dl (32-36); Mean Corpuscular Hemoglobin 28.9 pg (26-34); Mean Corpuscular Volume 84.2 fl (80-100); Mean Platelet Volume 11.4 fl (7.4-10.4); Monocytes Absolute Auto 0.7 K/mm3 (0.1-0.6); Monocytes Percent Auto 5.2 % (2.6-8.5); Neutrophils Absolute Auto 11.4 K/mm3 (1.3-6.7); Neutrophils Percent Auto 90.1 % (45.5-73.1); Platelet Count Result 84 k/mm3 (150-375); Red Cell Distribution Width 13.3 % (11.5-14.5); White Blood Count 12.7 K/mm3 (4.5-10.0)
[2024-11-06] MEDS: ACETAMINOPHEN 325 MG TABLET 650 MG PO ×2 (06:43→16:56)
[2024-11-06 06:47] LABS: Lactic Acid Reflex 1.1 mmol/L (0.7-2.0)
[2024-11-06 06:48] LABS: Alanine Aminotransferase 21 U/L (6-35); Albumin Level 3.6 g/dL (3.5-5.1); Alkaline Phosphatase 85 U/L (38-126); Anion Gap 9 mmol/L (4-12); Aspartate Amino Transferase 27 U/L (14-36); Bilirubin,Total 0.8 mg/dL (0.2-1.3); Blood Urea Nitrogen 27 mg/dL (7-17); Calcium 8.8 mg/dL (8.4-10.2); Carbon Dioxide 18 mmol/L (22-30); Chloride 105 mmol/L (98-107); Estimated CRCL calculation 39 ml/min; Estimated Glomerular Filt Rate 38; Glucose 129 mg/dL (65-110); Magnesium 1.9 mg/dL (1.6-2.3); Phosphorus 3.1 mg/dL (2.5-4.5); Potassium 3.5 mmol/L (3.4-5.0); Sodium 132 mmol/L (137-145)
[2024-11-06 07:49] LABS: Glucose Point of Care 137 mg/dl (65-105)
[2024-11-06] MEDS: APIXABAN 5 MG TABLET PO ×2 (09:36→21:30)
[2024-11-06] MEDS: cefTRIAXone 2 GM/NS 100 ML 2 GM/100 ML BAG IVPB (09:36)
[2024-11-06] MEDS: ONDANSETRON INJ 4 MG/2 ML VIAL IV PUSH ×2 (09:39→16:57)
[2024-11-06] MEDS: KCL 40 MEQ/WATER 100 ML 100 ML 25 ML IVPB (10:42)
--- NOTE | 2024-11-06 11:18 | WPDINTPN ---
Progress Note: A&P Assessment and Plan (1) Severe sepsis: Code(s): A41.9 - Sepsis, unspecified organism; R65.20 - Severe sepsis without septic shock Status: Acute Assessment and Plan: 11/04: Patient presented with generalized weakness, URI symptoms, flank pain in fall. Hypotensive in the ER with systolic in the 60s and heart rates in the 140s, lactic acid of 3.6 on admission, creatinine of 2.20, CO2 of 17, sodium of 122 -received 3.5 L of IV fluid bolus with improvement in her blood pressures and heart rate, she was also given metoprolol and Cardizem IV plus Cardizem infusion in the ER. Patient was transferred to the intermediate unit with Cardizem infusion was discontinued due to low blood pressures P -11/05: I was asked to see the patient for low blood pressures, brought her to the ICU, right IJ central line was inserted. -will start albumin for volume expansion -noninvasive cardiac output monitor did not reveal fluid responsiveness, but when I placed a right IJ central line she seemed to be dry has barely any blood was flowing out of the port. -11/04: Blood cultures growing E coli 2/2 bottles sensitivities pending -11/04: urine culture growing E coli, sensitivities pending -patient started on ceftriaxone(11/04), -will discontinue vancomycin -continue to monitor urine output and renal function -blood pressures are stable at this time, patient has not required Levophed at all (2) Pyelonephritis: Code(s): N12 - Tubulo-interstitial nephritis, not specified as acute or chronic Status: Acute Assessment and Plan: 10/27: Status post cystoscopy -likely cause of UTI/pyelonephritis -urine cultures growing E coli, continue antibiotics as above (3) Acute kidney injury: Code(s): N17.9 - Acute kidney failure, unspecified Status: Acute Assessment and Plan: Acute kidney injury likely related to hypotension, severe sepsis, UTI/pyelonephritis, hypovolemia. Denies any kidney problems. -creatinine on admission was 2.20, -received adequate amount of IV fluid -will monitor urine output, renal function and electrolytes -creatinine down to 1.60 this morning, will continue to monitor -appreciate Nephrology evaluation and recommendation -CT scan of the abdomen and pelvis showed left hydroureter (4) Atrial fibrillation with RVR: Code(s): I48.91 - Unspecified atrial fibrillation Status: Acute Assessment and Plan: AFib RVR in the ER with heart rate in the 140s -heart rate improved with IV fluids, IV metoprolol and IV Cardizem along with Cardizem infusion -Cardizem infusion was discontinued since patient was hypotensive -currently heart rates in the 80s and 90s, irregularly irregular, continue to monitor (5) COVID-19: Code(s): U07.1 - COVID-19 Status: Acute Assessment and Plan: Patient tested positive for SARs CoV 2 PCR -started on dexamethasone -patient was on room air, not a candidate for remdesivir at this time -continue contact, airborne and droplet isolation and precautions (6) Hyponatremia: Code(s): E87.1 - Hypo-osmolality and hyponatremia Status: Acute Assessment and Plan: Hyponatremia with sodium of 122, has not had any issues in the past according to the patient -could be related to hypovolemia, patient also on fluoxetine -sodium 132 this morning. -appreciate nephrology following (7) Electrolyte abnormality: Code(s): E87.8 - Other disorders of electrolyte and fluid balance, not elsewhere classified Status: Acute Assessment and Plan: Will replace potassium Plan DVT prophylaxis: Continue home Eliquis Stress ulcer prophylaxis: Not Indicated Nutrition: Heart healthy diet Code Status: Full code Critical Care Time Spent: 31 minutes Patient may transfer out of the ICU if okay with hospitalist Due to a high probability of clinically significant, life threatening deterioration, the patient required my highest level of preparedness to intervene emergently and I personally spent this critical care time directly and personally managing the patient. This critical care time included obtaining a history; examining the patient; pulse oximetry; ordering and review of studies; arranging urgent treatment with development of a management plan; evaluation of patient's response to treatment; frequent reassessment; and discussions with other providers. It was exclusive of separately billable procedures and treating other patients and teaching time. Please see Assessment and Plan section and the rest of the note for further information on patient assessment and treatment This dictation may have been done utilizing a voice recognition system. Attempts have been made to correct errors. However, there may be uncorrected grammatical, spelling, and recognitions errors present. Subjective Date/time seen: 11/06/24 11:18 Interval history: Reason for consult: Hypotension, severe sepsis, UTI/pyelonephritis, COVID-19, AFib RVR 11/06/2024: Patient seen and examined the ICU, is awake, alert, oriented, nonfocal. Hemodynamically stable, adequate urine output, afebrile. Denies any shortness of breath, chest pain, abdominal pain, nausea, vomiting. Remains on room air with adequate O2 sats. Leukocytosis improving, urine output has been adequate, creatinine improving Review of Systems Review of Systems: All systems reviewed & are unremarkable except as noted in HPI and below Exam Narrative: General: Pleasant female, in no acute distress HEENT:? Pupils equal reactive, sclera is clear, moist oral mucous Neck:? Supple Respiratory:? Clear to auscultation bilaterally, decreased at bases, no wheeze Cardiac:? Irregularly irregular, rate controlled in the 80s-90s Abdomen:? Soft, nontender, nondistended, obese, hypoactive bowel sounds, old surgical scars noted Extremities:? Trace edema in lower extremities, palpable pedal pulses Neuro:? Patient is awake, alert, oriented, nonfocal, follows simple commands and answers to questions appropriately Skin:? Bilateral upper extremity bruising noted Psych:? Normal mentation and affect Objective Data Vital Signs Vital Signs: Vital Signs - 24 hr 11/05/24 12:00 11/05/24 12:00 11/05/24 12:00 Temperature Pulse Rate 92 92 Respiratory Rate 18 Blood Pressure 109/76 Pulse Oximetry 98 97 Oxygen Delivery Nasal Cannula Oxygen Flow Rate 2 Fraction of Inspired Oxygen 11/05/24 14:00 11/05/24 14:00 11/05/24 14:24 Temperature Pulse Rate 95 95 Respiratory Rate 20 Blood Pressure 125/76 Pulse Oximetry 99 98 Oxygen Delivery Nasal Cannula Oxygen Flow Rate 2 Fraction of Inspired Oxygen 28 11/05/24 14:24 11/05/24 14:31 11/05/24 16:00 Temperature 98.1 F Pulse Rate 108 H 102 H 92 Respiratory Rate 24 H 20 17 Blood Pressure 132/85 Pulse Oximetry 97 Oxygen Delivery Oxygen Flow Rate Fraction of Inspired Oxygen 11/05/24 16:00 11/05/24 16:00 11/05/24 18:00 Temperature Pulse Rate 93 90 Respiratory Rate Blood Pressure Pulse Oximetry 98 Oxygen Delivery Nasal Cannula Oxygen Flow Rate 2 Fraction of Inspired Oxygen 11/05/24 18:00 11/05/24 20:00 11/05/24 20:00 Temperature 99.1 F Pulse Rate 90 93 94 Respiratory Rate 18 26 H Blood Pressure 145/93 H Pulse Oximetry 100 100 Oxygen Delivery Oxygen Flow Rate Fraction of Inspired Oxygen 11/05/24 20:00 11/05/24 20:45 11/05/24 21:18 Temperature Pulse Rate 88 91 Respiratory Rate 20 Blood Pressure 124/78 Pulse Oximetry 100 Oxygen Delivery Nasal Cannula Oxygen Flow Rate 2 Fraction of Inspired Oxygen 11/05/24 21:19 11/05/24 21:32 11/05/24 22:00 Temperature Pulse Rate 92 97 Respiratory Rate 22 H Blood Pressure Pulse Oximetry 98 Oxygen Delivery Nasal Cannula Oxygen Flow Rate 2 Fraction of Inspired Oxygen 11/05/24 22:00 11/06/24 00:00 11/06/24 00:00 Temperature Pulse Rate 97 92 Respiratory Rate 20 Blood Pressure 133/94 H Pulse Oximetry 95 99 Oxygen Delivery Room Air Oxygen Flow Rate Fraction of Inspired Oxygen 11/06/24 00:00 11/06/24 02:00 11/06/24 02:00 Temperature 98.2 F Pulse Rate 94 89 89 Respiratory Rate 16 23 H Blood Pressure 143/88 H 114/65 Pulse Oximetry 99 99 Oxygen Delivery Oxygen Flow Rate Fraction of Inspired Oxygen 11/06/24 03:04 11/06/24 03:13 11/06/24 04:00 Temperature Pulse Rate 91 94 89 Respiratory Rate 33 H 29 H Blood Pressure Pulse Oximetry Oxygen Delivery Oxygen Flow Rate Fraction of Inspired Oxygen 11/06/24 04:00 11/06/24 04:00 11/06/24 06:00 Temperature 98.2 F Pulse Rate 89 95 Respiratory Rate 24 H Blood Pressure 116/69 Pulse Oximetry 97 97 Oxygen Delivery Room Air Oxygen Flow Rate Fraction of Inspired Oxygen 11/06/24 06:25 11/06/24 08:00 11/06/24 08:00 Temperature 98.4 F Pulse Rate 99 95 95 Respiratory Rate 22 H 24 H 24 H Blood Pressure 139/89 132/61 Pulse Oximetry 100 100 100 Oxygen Delivery Room Air Oxygen Flow Rate Fraction of Inspired Oxygen 11/06/24 08:00 11/06/24 10:00 11/06/24 10:00 Temperature Pulse Rate 94 96 96 Respiratory Rate 22 H Blood Pressure 148/96 H Pulse Oximetry 98 Oxygen Delivery Oxygen Flow Rate Fraction of Inspired Oxygen Intake/Output Intake/Output: Intake & Output 11/03/24 11/04/24 11/05/24 11/06/24 23:59 23:59 23:59 23:59 Intake Total 1500 1673.7 1100 Output Total 1175 2450 Balance 1500 498.7 -1350 Meds/Results Medications: Active Medications Generic Name Dose Route Start Last Admin Trade Name Freq PRN Reason Stop Dose Admin Acetaminophen 650 mg 11/05/24 12:50 11/06/24 06:43 Acetaminophen 325 Mg Tablet PO 650 mg Q6H PRN Administration Mild Pain (1-3) or Fever Albuterol/Ipratropium 3 ml 11/05/24 09:00 11/06/24 03:04 Ipratropium 0.5 Mg/Albuterol Sulfate 2.5 Mg Ampul.Neb 3 Ml INHALATION 3 ml Q6HRT LANCE Administration Apixaban 5 mg 11/05/24 09:00 11/06/24 09:36 Apixaban 5 Mg Tablet PO 5 mg Q12H LANCE Administration Budesonide 0.5 mg 11/05/24 09:00 11/05/24 21:18 Budesonide Respule Neb 0.5 Mg/2 Ml Amp INHALATION 0.5 mg Q12HRT LANCE Administration Dexamethasone Sodium Phosphate 6 mg 11/05/24 07:00 11/06/24 06:30 Dexamethasone Sod Phos Inj 10 Mg/Ml 1 Ml Vial IV PUSH 11/14/24 07:01 6 mg Q24H LANCE Administration Dextrose 12.5 gm 11/05/24 09:13 Dextrose 50% 25 Gm/50 Ml Syringe IV PUSH PRN PRN Hypoglycemia Protocol Glucagon 1 mg 11/05/24 09:13 Glucagon For Inj 1 Mg Vial IM PRN PRN Hypoglycemia Protocol Glucose 15 gm 11/05/24 09:13 Glucose Oral Gel 15 Gm Of Glucse In 37.5 Gm Tube PO PRN PRN Hypoglycemia Protocol Ceftriaxone Sodium 2 gm in 100 mls @ 200 mls/hr 11/05/24 09:00 11/06/24 09:36 Rocephin 2 Gm/Ns 100 Ml IVPB 200 mls/hr Q24H LANCE Administration Dextrose 1,000 mls @ 100 mls/hr 11/05/24 09:13 Dextrose 5% 1,000 Ml IVPB PRN PRN Hypoglycemia Protocol Vancomycin HCl 1,500 mg in 500 mls @ 250 mls/hr 11/06/24 22:00 Vancomycin 1,500 Mg/Ns 500 Ml IVPB Q36H LANCE Norepinephrine Bitartrate 8 mg in 250 mls @ 9.375 mls/hr 11/05/24 10:05 11/06/24 07:49 Levophed 8 Mg/D5w 250 Ml IV CONT Not Given .Q24H LANCE Protocol 5 MCG/MIN Potassium Chloride 100 mls @ 25 mls/hr 11/06/24 08:00 11/06/24 10:42 Kcl 40 Meq/Water 100 Ml IVPB 11/06/24 11:59 25 mls/hr ONCE ONE Administration Insulin Aspart 1 - 3 units 11/05/24 21:00 11/05/24 20:49 Insulin Aspart (*Bkc) 100 Units/Ml SUB-Q Not Given HS LANCE Protocol Insulin Aspart 3 - 6 units 11/05/24 12:00 11/06/24 09:36 Insulin Aspart (*Bkc) 100 Units/Ml SUB-Q Not Given [facility] Protocol Ondansetron HCl 4 mg 11/05/24 12:50 11/06/24 09:39 Ondansetron Inj 4 Mg/2 Ml Vial IV PUSH 4 mg Q6H PRN Administration Nausea And Vomiting Perflutren Lipid Microsphere 0 ml 11/05/24 07:28 Perflutren Lipid Microspheres 1.5 Ml Vial Diluted To 10 Ml Total Volume IV PUSH 11/08/24 07:29 ONCE PRN adequate visualization Protocol Sodium Chloride 10 ml 11/05/24 14:00 11/06/24 06:29 Central Line Flush IV PUSH 10 ml Q8HR LANCE Administration Sodium Chloride 20 ml 11/05/24 10:02 11/05/24 13:14 Central Line Flush IV PUSH 20 ml PRN PRN Administration after blood draws Radiology Results: ITS Impressions Head CT 11/05/24 07:15 IMPRESSION: 1. Old infarcts in the bilateral basal ganglia. Thoracic Spine CT 11/05/24 08:35 IMPRESSION: 1. No fracture 2. Mild thoracic spondylosis. Cervical Spine CT 11/05/24 08:55 IMPRESSION: 1. No fracture. 2. Severe cervical spondylosis. Miscellaneous CT Procedure 11/05/24 09:03 IMPRESSION: 1. Mild left hydroureter, new from 06/28/24. No urolithiasis. 2. Mild lumbar spondylosis. Chest X-Ray 11/05/24 10:21 IMPRESSION: 1. Central line tip in the proximal right atrium. Renal Ultrasound 11/05/24 15:00 IMPRESSION: No renal mass lesion or hydronephrosis is detected Labs Labs: Laboratory Results - last 24 hr 11/05/24 11/05/24 11/05/24 11:43 15:59 16:04 WBC RBC Hgb Hct MCV MCH MCHC RDW Plt Count MPV Immature Gran % (Auto) Neut % (Auto) Lymph % (Auto) [place] % (Auto) Eos % (Auto) Baso % (Auto) Lymph # (Auto) [place] # (Auto) Eos # (Auto) Baso # (Auto) Abs Immat Gran (auto) Absolute Neuts (auto) Absolute Nucleated RBC Nucleated RBC % % Immature Plt Fraction Sodium 131 L Potassium 4.0 Chloride 107 Carbon Dioxide 16 L Anion Gap 8 BUN 32 H Creatinine 1.60 H Estim Creat Clear Calc 33 Estimated GFR 33 L Glucose 210 H POC Capillary Glucose 183 H 218 H Lactic Acid Calcium 7.6 L Phosphorus Magnesium 1.9 Total Bilirubin AST ALT Alkaline Phosphatase Total Protein Albumin 11/05/24 11/06/24 11/06/24 20:47 06:29 07:44 WBC 12.7 H RBC 3.80 L Hgb 11.0 L Hct 32.0 L MCV 84.2 MCH 28.9 MCHC 34.4 RDW 13.3 Plt Count 84 L MPV 11.4 H Immature Gran % (Auto) 0.9 H Neut % (Auto) 90.1 H Lymph % (Auto) 3.1 L [place] % (Auto) 5.2 Eos % (Auto) 0.4 Baso % (Auto) 0.3 Lymph # (Auto) 0.40 L [place] # (Auto) 0.7 H Eos # (Auto) 0.1 Baso # (Auto) 0.0 Abs Immat Gran (auto) 0.11 H Absolute Neuts (auto) 11.4 H Absolute Nucleated RBC 0.000 Nucleated RBC % 0.0 % Immature Plt Fraction 8.5 Sodium 132 L Potassium 3.5 Chloride 105 Carbon Dioxide 18 L Anion Gap 9 BUN 27 H Creatinine 1.40 H Estim Creat Clear Calc 39 Estimated GFR 38 L Glucose 129 H POC Capillary Glucose 162 H 137 H Lactic Acid 1.1 Calcium 8.8 Phosphorus 3.1 Magnesium 1.9 Total Bilirubin 0.8 AST 27 ALT 21 Alkaline Phosphatase 85 Total Protein 7.0 Albumin 3.6 Quality VTE Prophylaxis VTE prophylaxis: pharmacologic ordered
[2024-11-06 11:27] LABS: Glucose Point of Care 182 mg/dl (65-105)
--- NOTE | 2024-11-06 13:56 | PM.PNNEP ---
Progress Note: A&P Assessment and Plan (1) Acute kidney injury: Code(s): N17.9 - Acute kidney failure, unspecified Status: Acute Assessment and Plan: The patient has acute kidney injury. She says that she has no history of kidney problems. Her creatinine on admission was 2.2 then 1.9 and now 1.4 Urine shows proteinuria hematuria and pyuria. Renal sono okay Etiology of her JAYLEN is probably multifactorial. dehydration hypotension UTI/sepsis COIVID-19 She is getting antibiotics. she got some fluids. check a creatinine tomorrow (2) Hyponatremia: Code(s): E87.1 - Hypo-osmolality and hyponatremia Status: Acute Assessment and Plan: The patient has low sodium. She has never heard of this issue in the past. dehydration and fluoxetine may be the causes. sodium corrected then stalled in the low 130s. will continue to follow. hopefully this is short lived. (3) COVID-19: Code(s): U07.1 - COVID-19 Status: Acute Assessment and Plan: The patient received steroids. She is getting remdesivir. (4) Atrial fibrillation with RVR: Code(s): I48.91 - Unspecified atrial fibrillation Status: Acute Assessment and Plan: The patient has atrial fibrillation on a long-term basis. Heart rate was good this morning at 96 (5) Sepsis: Qualifiers: Acute renal failure type: unspecified Sepsis acute organ dysfunction status: with acute organ dysfunction Sepsis type: sepsis due to unspecified organism Severe sepsis acute organ dysfunction type: acute renal failure Severe sepsis shock status: without septic shock Qualified Code(s): A41.9 - Sepsis, unspecified organism; R65.20 - Severe sepsis without septic shock; N17.9 - Acute kidney failure, unspecified Code(s): A41.9 - Sepsis, unspecified organism Status: Acute Plan The patient has urosepsis. Cultures are positive for E Coli in blood and urine. on atbs. sens pending Subjective Date/time seen: 11/06/24 13:56 Interval history: alert. feels better. generally weak Review of Systems Cardiovascular: Cardiovascular: Reports no additional cardiovascular complaints Respiratory: Respiratory: Reports no additional respiratory complaints Gastrointestinal: Gastrointestinal: Reports no additional gastrointestinal complaints Genitourinary: Genitourinary: Reports no additional female genitourinary complaints Exam Narrative: WDWN in NAD skin no rash head ncat lungs clear cor reg no rub abd BS+ nontender and soft ext no edema. Objective Data Vital Signs Vital Signs: Vital Signs - 24 hr 11/05/24 14:00 11/05/24 14:00 11/05/24 14:24 Temperature Pulse Rate 95 95 Respiratory Rate 20 Blood Pressure 125/76 Pulse Oximetry 99 98 Oxygen Delivery Nasal Cannula Oxygen Flow Rate 2 Fraction of Inspired Oxygen 28 11/05/24 14:24 11/05/24 14:31 11/05/24 16:00 Temperature 98.1 F Pulse Rate 108 H 102 H 92 Respiratory Rate 24 H 20 17 Blood Pressure 132/85 Pulse Oximetry 97 Oxygen Delivery Oxygen Flow Rate Fraction of Inspired Oxygen 11/05/24 16:00 11/05/24 16:00 11/05/24 18:00 Temperature Pulse Rate 93 90 Respiratory Rate Blood Pressure Pulse Oximetry 98 Oxygen Delivery Nasal Cannula Oxygen Flow Rate 2 Fraction of Inspired Oxygen 11/05/24 18:00 11/05/24 20:00 11/05/24 20:00 Temperature 99.1 F Pulse Rate 90 93 94 Respiratory Rate 18 26 H Blood Pressure 145/93 H Pulse Oximetry 100 100 Oxygen Delivery Oxygen Flow Rate Fraction of Inspired Oxygen 11/05/24 20:00 11/05/24 20:45 11/05/24 21:18 Temperature Pulse Rate 88 91 Respiratory Rate 20 Blood Pressure 124/78 Pulse Oximetry 100 Oxygen Delivery Nasal Cannula Oxygen Flow Rate 2 Fraction of Inspired Oxygen 11/05/24 21:19 11/05/24 21:32 11/05/24 22:00 Temperature Pulse Rate 92 97 Respiratory Rate 22 H Blood Pressure Pulse Oximetry 98 Oxygen Delivery Nasal Cannula Oxygen Flow Rate 2 Fraction of Inspired Oxygen 11/05/24 22:00 11/06/24 00:00 11/06/24 00:00 Temperature Pulse Rate 97 92 Respiratory Rate 20 Blood Pressure 133/94 H Pulse Oximetry 95 99 Oxygen Delivery Room Air Oxygen Flow Rate Fraction of Inspired Oxygen 11/06/24 00:00 11/06/24 02:00 11/06/24 02:00 Temperature 98.2 F Pulse Rate 94 89 89 Respiratory Rate 16 23 H Blood Pressure 143/88 H 114/65 Pulse Oximetry 99 99 Oxygen Delivery Oxygen Flow Rate Fraction of Inspired Oxygen 11/06/24 03:04 11/06/24 03:13 11/06/24 04:00 Temperature Pulse Rate 91 94 89 Respiratory Rate 33 H 29 H Blood Pressure Pulse Oximetry Oxygen Delivery Oxygen Flow Rate Fraction of Inspired Oxygen 11/06/24 04:00 11/06/24 04:00 11/06/24 06:00 Temperature 98.2 F Pulse Rate 89 95 Respiratory Rate 24 H Blood Pressure 116/69 Pulse Oximetry 97 97 Oxygen Delivery Room Air Oxygen Flow Rate Fraction of Inspired Oxygen 11/06/24 06:25 11/06/24 08:00 11/06/24 08:00 Temperature 98.4 F Pulse Rate 99 95 95 Respiratory Rate 22 H 24 H 24 H Blood Pressure 139/89 132/61 Pulse Oximetry 100 100 100 Oxygen Delivery Room Air Oxygen Flow Rate Fraction of Inspired Oxygen 11/06/24 08:00 11/06/24 10:00 11/06/24 10:00 Temperature Pulse Rate 94 96 96 Respiratory Rate 22 H Blood Pressure 148/96 H Pulse Oximetry 98 Oxygen Delivery Oxygen Flow Rate Fraction of Inspired Oxygen Intake/Output Intake/Output: Intake & Output 11/03/24 11/04/24 11/05/24 11/06/24 23:59 23:59 23:59 23:59 Intake Total 1500 1673.7 1390 Output Total 1175 3900 Balance 1500 498.7 -2510 Meds/Results Medications: Active Medications Generic Name Dose Route Start Last Admin Trade Name Freq PRN Reason Stop Dose Admin Acetaminophen 650 mg 11/05/24 12:50 11/06/24 06:43 Acetaminophen 325 Mg Tablet PO 650 mg Q6H PRN Administration Mild Pain (1-3) or Fever Albuterol/Ipratropium 3 ml 11/05/24 09:00 11/06/24 03:04 Ipratropium 0.5 Mg/Albuterol Sulfate 2.5 Mg Ampul.Neb 3 Ml INHALATION 3 ml Q6HRT LANCE Administration Apixaban 5 mg 11/05/24 09:00 11/06/24 09:36 Apixaban 5 Mg Tablet PO 5 mg Q12H LANCE Administration Budesonide 0.5 mg 11/05/24 09:00 11/05/24 21:18 Budesonide Respule Neb 0.5 Mg/2 Ml Amp INHALATION 0.5 mg Q12HRT LANCE Administration Dexamethasone Sodium Phosphate 6 mg 11/05/24 07:00 11/06/24 06:30 Dexamethasone Sod Phos Inj 10 Mg/Ml 1 Ml Vial IV PUSH 11/14/24 07:01 6 mg Q24H LANCE Administration Dextrose 12.5 gm 11/05/24 09:13 Dextrose 50% 25 Gm/50 Ml Syringe IV PUSH PRN PRN Hypoglycemia Protocol Glucagon 1 mg 11/05/24 09:13 Glucagon For Inj 1 Mg Vial IM PRN PRN Hypoglycemia Protocol Glucose 15 gm 11/05/24 09:13 Glucose Oral Gel 15 Gm Of Glucse In 37.5 Gm Tube PO PRN PRN Hypoglycemia Protocol Ceftriaxone Sodium 2 gm in 100 mls @ 200 mls/hr 11/05/24 09:00 11/06/24 09:36 Rocephin 2 Gm/Ns 100 Ml IVPB 200 mls/hr Q24H LANCE Administration Dextrose 1,000 mls @ 100 mls/hr 11/05/24 09:13 Dextrose 5% 1,000 Ml IVPB PRN PRN Hypoglycemia Protocol Insulin Aspart 1 - 3 units 11/05/24 21:00 11/05/24 20:49 Insulin Aspart (*Bkc) 100 Units/Ml SUB-Q Not Given HS LANCE Protocol Insulin Aspart 3 - 6 units 11/05/24 12:00 11/06/24 11:43 Insulin Aspart (*Bkc) 100 Units/Ml SUB-Q Not Given TIDWM LANCE Protocol Ondansetron HCl 4 mg 11/05/24 12:50 11/06/24 09:39 Ondansetron Inj 4 Mg/2 Ml Vial IV PUSH 4 mg Q6H PRN Administration Nausea And Vomiting Perflutren Lipid Microsphere 0 ml 11/05/24 07:28 Perflutren Lipid Microspheres 1.5 Ml Vial Diluted To 10 Ml Total Volume IV PUSH 11/08/24 07:29 ONCE PRN adequate visualization Protocol Sodium Chloride 10 ml 11/05/24 14:00 11/06/24 06:29 Central Line Flush IV PUSH 10 ml Q8HR LANCE Administration Sodium Chloride 20 ml 11/05/24 10:02 11/05/24 13:14 Central Line Flush IV PUSH 20 ml PRN PRN Administration after blood draws Radiology Results: ITS Impressions Head CT 11/05/24 07:15 IMPRESSION: 1. Old infarcts in the bilateral basal ganglia. Thoracic Spine CT 11/05/24 08:35 IMPRESSION: 1. No fracture 2. Mild thoracic spondylosis. Cervical Spine CT 11/05/24 08:55 IMPRESSION: 1. No fracture. 2. Severe cervical spondylosis. Miscellaneous CT Procedure 11/05/24 09:03 IMPRESSION: 1. Mild left hydroureter, new from 06/28/24. No urolithiasis. 2. Mild lumbar spondylosis. Chest X-Ray 11/05/24 10:21 IMPRESSION: 1. Central line tip in the proximal right atrium. Renal Ultrasound 11/05/24 15:00 IMPRESSION: No renal mass lesion or hydronephrosis is detected Labs Labs: Laboratory Results - last 24 hr 11/05/24 11/05/24 11/05/24 15:59 16:04 20:47 WBC RBC Hgb Hct MCV MCH MCHC RDW Plt Count MPV Immature Gran % (Auto) Neut % (Auto) Lymph % (Auto) [place] % (Auto) Eos % (Auto) Baso % (Auto) Lymph # (Auto) [place] # (Auto) Eos # (Auto) Baso # (Auto) Abs Immat Gran (auto) Absolute Neuts (auto) Absolute Nucleated RBC Nucleated RBC % % Immature Plt Fraction Sodium 131 L Potassium 4.0 Chloride 107 Carbon Dioxide 16 L Anion Gap 8 BUN 32 H Creatinine 1.60 H Estim Creat Clear Calc 33 Estimated GFR 33 L Glucose 210 H POC Capillary Glucose 218 H 162 H Lactic Acid Calcium 7.6 L Phosphorus Magnesium 1.9 Total Bilirubin AST ALT Alkaline Phosphatase Total Protein Albumin 11/06/24 11/06/24 11/06/24 06:29 07:44 11:24 WBC 12.7 H RBC 3.80 L Hgb 11.0 L Hct 32.0 L MCV 84.2 MCH 28.9 MCHC 34.4 RDW 13.3 Plt Count 84 L MPV 11.4 H Immature Gran % (Auto) 0.9 H Neut % (Auto) 90.1 H Lymph % (Auto) 3.1 L [place] % (Auto) 5.2 Eos % (Auto) 0.4 Baso % (Auto) 0.3 Lymph # (Auto) 0.40 L [place] # (Auto) 0.7 H Eos # (Auto) 0.1 Baso # (Auto) 0.0 Abs Immat Gran (auto) 0.11 H Absolute Neuts (auto) 11.4 H Absolute Nucleated RBC 0.000 Nucleated RBC % 0.0 % Immature Plt Fraction 8.5 Sodium 132 L Potassium 3.5 Chloride 105 Carbon Dioxide 18 L Anion Gap 9 BUN 27 H Creatinine 1.40 H Estim Creat Clear Calc 39 Estimated GFR 38 L Glucose 129 H POC Capillary Glucose 137 H 182 H Lactic Acid 1.1 Calcium 8.8 Phosphorus 3.1 Magnesium 1.9 Total Bilirubin 0.8 AST 27 ALT 21 Alkaline Phosphatase 85 Total Protein 7.0 Albumin 3.6
--- NOTE | 2024-11-06 15:57 | PC.NURSE ---
This patient, Rody Zaidi, was transferred to [Critical access hospital ] on 11/06/24 at 1552. Personal belongings sent with patient. Report given to [ADONAY Roper @ [phone] ]. Appropriate documentation sent with patient.
[2024-11-06 17:06] LABS: Glucose Point of Care 169 mg/dl (65-105)
[2024-11-06] MEDS: BUDESONIDE RESPULE NEB 0.5 MG/2 ML AMP INHALATION (20:24)
[2024-11-06 20:45] LABS: Glucose Point of Care 161 mg/dl (65-105)
[2024-11-06] MEDS: PANTOPRAZOLE 40 MG TABLET PO (22:32)
[2024-11-06] MEDS: LORazepam (*CRX) 0.5 MG TABLET PO (22:32)
[2024-11-06] MEDS: HYDROcodone/acetaminophen (*CRX) 10-325 MG TABLET 1 TAB PO (22:32)
--- NOTE | 2024-11-06 23:23 | PC.NURSE ---
Patient states that she was hallucinating upon admission and did not think that she updated her home medication list; patient sates that she took medicine for indigestion and requested something be ordered; patient additionally stated that tylenol, as ordered on the JAN prn, was not effective at controlling her pain, requests something additional. RN offered ice and patient requested heat, stating that it was more effective at managing her pain at home. Call to [facility] requesting additional pain management, heating pad, and something to aid in indigestion. Orders entered appropriately.
[2024-11-07] VITALS (14 sets, daily range): BP systolic 108–128; BP diastolic 76–86; PULSE 61–85; RESP 18–20; TEMP 36.5–36.6; O2SAT 96–99
[2024-11-07] MEDS: IPRATROPIUM 0.5 MG/ALBUTEROL SULFATE 2.5 MG AMPUL.NEB 3 ML INHALATION ×4 (02:32→22:09)
[2024-11-07] MEDS: CENTRAL LINE FLUSH 20 ML IV PUSH (03:47)
[2024-11-07 03:48] LABS: Hematocrit 32.7 % (37.0-47.0); Hemoglobin 11.2 g/dL (12.0-15.0); Immature Platelet Fraction Pct 9.3 % (0.9-11.2); Mean Corpuscular HGB Conc 34.3 g/dl (32-36); Mean Corpuscular Hemoglobin 28.9 pg (26-34); Mean Corpuscular Volume 84.3 fl (80-100); Mean Platelet Volume 11.4 fl (7.4-10.4); Platelet Count Result 92 k/mm3 (150-375); Red Blood Count 3.88 M/mm3 (4.2-5.4); Red Cell Distribution Width 13.6 % (11.5-14.5); White Blood Count 11.5 K/mm3 (4.5-10.0)
[2024-11-07 03:56] LABS: Alanine Aminotransferase 20 U/L (6-35); Albumin Level 3.4 g/dL (3.5-5.1); Alkaline Phosphatase 81 U/L (38-126); Anion Gap 7 mmol/L (4-12); Aspartate Amino Transferase 26 U/L (14-36); Bilirubin,Total 0.8 mg/dL (0.2-1.3); Blood Urea Nitrogen 29 mg/dL (7-17); Calcium 9.1 mg/dL (8.4-10.2); Carbon Dioxide 21 mmol/L (22-30); Chloride 106 mmol/L (98-107); Estimated CRCL calculation 48 ml/min; Estimated Glomerular Filt Rate 50; Glucose 165 mg/dL (65-110); Phosphorus 3.1 mg/dL (2.5-4.5); Potassium 3.9 mmol/L (3.4-5.0); Sodium 134 mmol/L (137-145)
[2024-11-07 04:09] LABS: Band Neutrophils Percent 5 % (0-6); Lymphocytes Absolute Manual 0.46 K/mm3 (1.1-4.5); Monocytes Absolute Manual 0.34 K/mm3 (0.1-0.90); Monocytes Percent Manual 3 % (3-9); Neutrophils Absolute Manual 10.69 K/mm3 (1.7-7.2); Neutrophils Percent Manual 88 % (46-73); Total Cells Counted 100
[2024-11-07 04:10] LABS: Large Platelets Present; Platelet Estimate Decreased (Adequate); Schistocytes None Seen; Tear Drop Cells 1+
[2024-11-07] MEDS: CENTRAL LINE FLUSH 10 ML IV PUSH ×3 (05:58→20:28)
[2024-11-07] MEDS: dexAMETHasone SOD PHOS INJ 10 MG/ML 1 ML VIAL 6 MG IV PUSH (06:03)
[2024-11-07 08:07] LABS: Glucose Point of Care 184 mg/dl (65-105)
[2024-11-07] MEDS: BUDESONIDE RESPULE NEB 0.5 MG/2 ML AMP INHALATION ×2 (08:27→22:12)
--- NOTE | 2024-11-07 09:08 | PM.PNNEP ---
Progress Note: A&P Assessment and Plan (1) Acute kidney injury: Code(s): N17.9 - Acute kidney failure, unspecified Status: Acute Assessment and Plan: The patient has acute kidney injury. She says that she has no history of kidney problems. Her creatinine on admission was 2.2 then 1.9 and now 1.4 Urine shows proteinuria hematuria and pyuria. Renal sono okay Etiology of her JAYLEN is probably multifactorial. dehydration: Patient eating and drinking well. hypotension: Blood pressure much better UTI/sepsis: Patient on antibiotics COVID-19: Patient remdesivir. She is getting antibiotics. she got some fluids. Creatinine is down to 1.1 (2) Hyponatremia: Code(s): E87.1 - Hypo-osmolality and hyponatremia Status: Acute Assessment and Plan: The patient has low sodium. She has never heard of this issue in the past. dehydration and fluoxetine may be the causes. sodium corrected then stalled in the low 130s. Now sodium up to 134. Things looking much better. Renal will sign off (3) COVID-19: Code(s): U07.1 - COVID-19 Status: Acute Assessment and Plan: The patient received steroids. She is getting remdesivir. (4) Atrial fibrillation with RVR: Code(s): I48.91 - Unspecified atrial fibrillation Status: Acute Assessment and Plan: The patient has atrial fibrillation on a long-term basis. Heart rate was good this morning at 96 (5) Sepsis: Qualifiers: Acute renal failure type: unspecified Sepsis acute organ dysfunction status: with acute organ dysfunction Sepsis type: sepsis due to unspecified organism Severe sepsis acute organ dysfunction type: acute renal failure Severe sepsis shock status: without septic shock Qualified Code(s): A41.9 - Sepsis, unspecified organism; R65.20 - Severe sepsis without septic shock; N17.9 - Acute kidney failure, unspecified Code(s): A41.9 - Sepsis, unspecified organism Status: Acute Plan The patient has urosepsis. Cultures are positive for E Coli in blood and urine. on atbs. sens pending Subjective Date/time seen: 11/07/24 09:08 Interval history: Feels better today Cath removed couple of hours ago. She has not urinated. Exam Narrative: WDWN in NAD skin no rash head ncat lungs clear cor reg no rub or gallop abd BS+ nontender and soft ext no edema or cyanosis. Objective Data Vital Signs Vital Signs: Vital Signs - 24 hr 11/06/24 10:00 11/06/24 10:00 11/06/24 16:00 Temperature 98.3 F Pulse Rate 96 96 97 Respiratory Rate 22 H 18 Blood Pressure 148/96 H 137/85 Pulse Oximetry 98 99 Oxygen Delivery 11/06/24 20:00 11/06/24 20:17 11/06/24 20:24 Temperature 97.9 F Pulse Rate 87 90 Respiratory Rate 20 22 H Blood Pressure 150/90 H Pulse Oximetry 100 Oxygen Delivery Room Air 11/06/24 20:38 11/07/24 02:33 11/07/24 02:39 Temperature Pulse Rate 96 85 85 Respiratory Rate 22 H 20 20 Blood Pressure Pulse Oximetry Oxygen Delivery 11/07/24 03:35 11/07/24 08:28 11/07/24 08:28 Temperature 97.7 F Pulse Rate 73 82 Respiratory Rate 20 20 Blood Pressure 108/76 Pulse Oximetry 97 96 Oxygen Delivery Room Air 11/07/24 08:39 Temperature Pulse Rate 78 Respiratory Rate 20 Blood Pressure Pulse Oximetry Oxygen Delivery Intake/Output Intake/Output: Intake & Output 11/04/24 11/05/24 11/06/24 11/07/24 23:59 23:59 23:59 23:59 Intake Total 1500 1673.7 2080 480 Output Total 1175 5200 1200 Balance 1500 498.7 -3120 -720 Meds/Results Medications: Active Medications Generic Name Dose Route Start Last Admin Trade Name Freq PRN Reason Stop Dose Admin Acetaminophen 650 mg 11/05/24 12:50 11/06/24 16:56 Acetaminophen 325 Mg Tablet PO 650 mg Q6H PRN Administration Mild Pain (1-3) or Fever Albuterol/Ipratropium 3 ml 11/05/24 09:00 11/07/24 08:27 Ipratropium 0.5 Mg/Albuterol Sulfate 2.5 Mg Ampul.Neb 3 Ml INHALATION 3 ml Q6HRT LANCE Administration Apixaban 5 mg 11/05/24 09:00 11/06/24 21:30 Apixaban 5 Mg Tablet PO 5 mg Q12H LANCE Administration Budesonide 0.5 mg 11/05/24 09:00 11/07/24 08:27 Budesonide Respule Neb 0.5 Mg/2 Ml Amp INHALATION 0.5 mg Q12HRT LANCE Administration Dexamethasone Sodium Phosphate 6 mg 11/05/24 07:00 11/07/24 06:03 Dexamethasone Sod Phos Inj 10 Mg/Ml 1 Ml Vial IV PUSH 11/14/24 07:01 6 mg Q24H LANCE Administration Dextrose 12.5 gm 11/05/24 09:13 Dextrose 50% 25 Gm/50 Ml Syringe IV PUSH PRN PRN Hypoglycemia Protocol Glucagon 1 mg 11/05/24 09:13 Glucagon For Inj 1 Mg Vial IM PRN PRN Hypoglycemia Protocol Glucose 15 gm 11/05/24 09:13 Glucose Oral Gel 15 Gm Of Glucse In 37.5 Gm Tube PO PRN PRN Hypoglycemia Protocol Ceftriaxone Sodium 2 gm in 100 mls @ 200 mls/hr 11/05/24 09:00 11/06/24 15:14 Rocephin 2 Gm/Ns 100 Ml IVPB Infused Q24H LANCE Infusion Dextrose 1,000 mls @ 100 mls/hr 11/05/24 09:13 Dextrose 5% 1,000 Ml IVPB PRN PRN Hypoglycemia Protocol Insulin Aspart 1 - 3 units 11/05/24 21:00 11/06/24 21:27 Insulin Aspart (*Bkc) 100 Units/Ml SUB-Q Not Given HS LANCE Protocol Insulin Aspart 3 - 6 units 11/05/24 12:00 11/06/24 17:29 Insulin Aspart (*Bkc) 100 Units/Ml SUB-Q Not Given TIDWM LANCE Protocol Ondansetron HCl 4 mg 11/05/24 12:50 11/06/24 16:57 Ondansetron Inj 4 Mg/2 Ml Vial IV PUSH 4 mg Q6H PRN Administration Nausea And Vomiting Pantoprazole Sodium 40 mg 11/07/24 09:00 Pantoprazole 40 Mg Tablet PO QAM LANCE Perflutren Lipid Microsphere 0 ml 11/05/24 07:28 Perflutren Lipid Microspheres 1.5 Ml Vial Diluted To 10 Ml Total Volume IV PUSH 11/08/24 07:29 ONCE PRN adequate visualization Protocol Sodium Chloride 10 ml 11/05/24 14:00 11/07/24 05:58 Central Line Flush IV PUSH 10 ml Q8HR LANCE Administration Sodium Chloride 20 ml 11/05/24 10:02 11/07/24 03:47 Central Line Flush IV PUSH 20 ml PRN PRN Administration after blood draws Radiology Results: ITS Impressions Head CT 11/05/24 07:15 IMPRESSION: 1. Old infarcts in the bilateral basal ganglia. Thoracic Spine CT 11/05/24 08:35 IMPRESSION: 1. No fracture 2. Mild thoracic spondylosis. Cervical Spine CT 11/05/24 08:55 IMPRESSION: 1. No fracture. 2. Severe cervical spondylosis. Miscellaneous CT Procedure 11/05/24 09:03 IMPRESSION: 1. Mild left hydroureter, new from 06/28/24. No urolithiasis. 2. Mild lumbar spondylosis. Chest X-Ray 11/05/24 10:21 IMPRESSION: 1. Central line tip in the proximal right atrium. Renal Ultrasound 11/05/24 15:00 IMPRESSION: No renal mass lesion or hydronephrosis is detected Labs Labs: Laboratory Results - last 24 hr 11/06/24 11/06/24 11/06/24 11:24 16:58 20:31 WBC RBC Hgb Hct MCV MCH MCHC RDW Plt Count MPV Immature Gran % (Auto) Neut % (Auto) Lymph % (Auto) [place] % (Auto) Eos % (Auto) Baso % (Auto) Lymph # (Auto) [place] # (Auto) Eos # (Auto) Baso # (Auto) Abs Immat Gran (auto) Absolute Neuts (auto) Absolute Nucleated RBC Total Counted Neutrophils % (Manual) Band Neutrophils % Lymphocytes % (Manual) Monocytes % (Manual) Nucleated RBC % Abs Neuts (Manual) Abs Lymphs (Manual) Abs Monocytes (Manual) Platelet Estimate Large Platelets % Immature Plt Fraction Tear Drop Cells Schistocytes Sodium Potassium Chloride Carbon Dioxide Anion Gap BUN Creatinine Estim Creat Clear Calc Estimated GFR Glucose POC Capillary Glucose 182 H 169 H 161 H Calcium Phosphorus Magnesium Total Bilirubin AST ALT Alkaline Phosphatase Total Protein Albumin 11/07/24 11/07/24 03:41 08:04 WBC 11.5 H RBC 3.88 L Hgb 11.2 L Hct 32.7 L MCV 84.3 MCH 28.9 MCHC 34.3 RDW 13.6 Plt Count 92 L MPV 11.4 H Immature Gran % (Auto) Not Reportable Neut % (Auto) Not Reportable Lymph % (Auto) Not Reportable [place] % (Auto) Not Reportable Eos % (Auto) Not Reportable Baso % (Auto) Not Reportable Lymph # (Auto) Not Reportable [place] # (Auto) Not Reportable Eos # (Auto) Not Reportable Baso # (Auto) Not Reportable Abs Immat Gran (auto) Not Reportable Absolute Neuts (auto) Not Reportable Absolute Nucleated RBC Not Reportable Total Counted 100 Neutrophils % (Manual) 88 H Band Neutrophils % 5 Lymphocytes % (Manual) 4.0 L Monocytes % (Manual) 3 Nucleated RBC % Not Reportable Abs Neuts (Manual) 10.69 H Abs Lymphs (Manual) 0.46 L Abs Monocytes (Manual) 0.34 Platelet Estimate Decreased Large Platelets Present % Immature Plt Fraction 9.3 Tear Drop Cells 1+ Schistocytes None seen Sodium 134 L Potassium 3.9 Chloride 106 Carbon Dioxide 21 L Anion Gap 7 BUN 29 H Creatinine 1.10 H Estim Creat Clear Calc 48 Estimated GFR 50 L Glucose 165 H POC Capillary Glucose 184 H Calcium 9.1 Phosphorus 3.1 Magnesium 2.0 Total Bilirubin 0.8 AST 26 ALT 20 Alkaline Phosphatase 81 Total Protein 7.0 Albumin 3.4 L
[2024-11-07] MEDS: APIXABAN 5 MG TABLET PO ×2 (09:12→20:26)
[2024-11-07] MEDS: cefTRIAXone 2 GM/NS 100 ML 2 GM/100 ML BAG IVPB (09:12)
[2024-11-07] MEDS: PANTOPRAZOLE 40 MG TABLET PO (09:12)
--- NOTE | 2024-11-07 09:58 | P.PNIM_ITS ---
Progress Note: A&P Assessment and Plan (1) Severe sepsis: Code(s): A41.9 - Sepsis, unspecified organism; R65.20 - Severe sepsis without septic shock Status: Acute Assessment and Plan: 11/04 Patient presented with generalized weakness, URI symptoms, flank pain in fall. Hypotensive in the ER with systolic in the 60s and heart rates in the 140s, lactic acid of 3.6 on admission, creatinine of 2.20, CO2 of 17, sodium of 122 -received 3.5 L of IV fluid bolus with improvement in her blood pressures and heart rate, she was also given metoprolol and Cardizem IV plus Cardizem infusion in the ER. Patient was transferred to the intermediate unit with Cardizem infusion was discontinued due to low blood pressures. * blood and urine cultures showing E coli on final read * 2nd set of blood cultures currently showing no growth to date on preliminary read * currently on Rocephin 2 g, vancomycin was discontinued (2) Pyelonephritis: Code(s): N12 - Tubulo-interstitial nephritis, not specified as acute or chronic Status: Acute Assessment and Plan: Status post recent cystoscopy which is likely cause of UTI/Pyelonephritis * initial urine and blood culture showing E coli which is pansensitive * patient was on Rocephin 2 g and will transition to oral Macrobid for total of 14 days. (3) Acute kidney injury: Code(s): N17.9 - Acute kidney failure, unspecified Status: Acute Assessment and Plan: Acute kidney injury likely related to hypotension, severe sepsis, UTI/pyelonephritis, hypovolemia. Denies any kidney problems. * CT scan of the abdomen and pelvis showed left hydroureter * Creatinine on admission is 2.20 * creatinine today 1.10 continues to trend downward * nephrology following * urology was consulted however there was no obstructive stone and likely pyelonephritis is due to ascending infection. Urology signed off. (4) Atrial fibrillation with RVR: Code(s): I48.91 - Unspecified atrial fibrillation Status: Acute Assessment and Plan: AFib RVR in the ER with heart rate in the 140s * Initially treated with metoprolol and Cardizem however Cardizem drop blood pressure and it was discontinued while in the intensive care unit * continue Eliquis and sotalol (5) COVID-19: Code(s): U07.1 - COVID-19 Status: Acute Assessment and Plan: * respiratory panel positive for COVID * continue dexamethasone * not a candidate for remdesivir * continue isolation (6) Hyponatremia: Code(s): E87.1 - Hypo-osmolality and hyponatremia Status: Acute Assessment and Plan: * initial sodium 122, appears to be chronic * currently 134 * nephrology following Time Spent With Patient Time with patient: 25 - 35 minutes Subjective Date/time seen: 11/07/24 09:58 Interval history: Interval history: This is a 63-year-old female With history of bladder cancer status post cystoscopy who presented to the hospital on 11/05/2024 with generalized weakness which has been ongoing for the last 4 days. She was initially meeting sepsis criteria with elevated heart rate, low blood pressure, lactic acidosis, acute kidney injury. workup in the hospital included a chest x-ray which was negative. 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 Cervical spine CT was negative for fracture, showed severe cervical spondylosis. Thoracic CT was negative for fracture showed mild thoracic spondylosis. CT of the abdomen and pelvis and lumbar without contrast showed mild left hydroureter new from 06/28/2024, no urolithiasis, mild lumbar spondylosis. Renal ultrasound was negative for any renal mass, lesion, or hydronephrosis. she was initially admitted to the intensive care unit and received 3.5 L of IV fluids with improvement in her blood pressure and heart rate. EKG showed AFib with RVR with a rate of 104 QTC 478. initial labs revealed a white blood cell count of 18.8, hemoglobin 16.5, sodium 22, chloride 93, bicarb 17, creatinine 2.20, EGFR 23, la ctic acid 3.6> 3.1> 1.3> 1.0, magnesium 1.5, troponin 0.045> 0.025, C reactive protein greater than 45. Random cortisol was 46.10. UA was obtained and showed turbid urine appearance, 3+ urine protein, 3+ urine blood, positive nitrate, 2+ leukocyte, greater than 100 urine RBC, greater than 100 urine WBC, 4+ urine bacteria. Respiratory panel was positive for COVID. Urine culture showing E coli on final read which was relatively pansensitive. Blood cultures on 11/04/2024 resulted with E coli. New blood cultures drawn on 11/06/2024 are showing no growth to date on preliminary read. Patient was started on a Cardizem drip while in the ICU however blood pressure started to drop and Cardizem was discontinued. She was started on a Levophed infusion while in the ICU and was weaned off when blood pressures improved.. Patient was also placed Rocephin and vancomycin. Vancomycin was deescalated. She was continued on dexamethasone 6 mg IV push Q 24 hours. She did not receive any Remdesivir. Nephrology was consulted for JAYLEN. Urology was also consulted considering the history of bladder cancer. Urology feels this is not an obstruction and that the pyelonephritis is due to an ascending urinary tract infection. Hurley catheter was discontinued. Subjective: Patient denies any fever, chills, nausea, vomiting, diarrhea, abdominal pain, chest pain,or shortness of breath. Patient endorses anxiety today. Labs reviewed. Review of Systems Review of Systems: All systems reviewed & are unremarkable except as noted in HPI and below Constitutional: Constitutional: Reports as per HPI and Reports no additional constitutional complaints Eyes: Eyes: Reports as per HPI and Reports no additional eye complaints ENT: Reports system reviewed and no additional complaints, except as documented and Reports as per HPI Cardiovascular: Cardiovascular: Reports as per HPI and Reports no additional cardiovascular complaints Respiratory: Respiratory: Reports as per HPI and Reports no additional respiratory complaints Gastrointestinal: Gastrointestinal: Reports as per HPI and Reports no additional gastrointestinal complaints Genitourinary: Genitourinary: Reports no additional female genitourinary complaints and Reports as per HPI Musculoskeletal: Musculoskeletal: Reports no additional musculoskeletal complaints and Reports as per HPI Integumentary/Breasts: Skin/Breast: Reports system reviewed and no additional complaints, except as docu and Reports as per HPI Neurologic: Reports system reviewed and no additional complaints, except as documented and Reports as per HPI Psychiatric: Psychiatric: Reports no additional psychiatric complaints and Reports as per HPI Exam Narrative: General: In no acute distress, well nourished Head: atraumatic, no encephalopathy Eyes: PERRLA, sclera clear ENT: moist mucous membranes, nasal passages clear Neck: supple, no JVD, no adenopathy, trachea midline Cardiac: Normal S1 and S2. No murmur, gallops or friction rubs, peripheral pulses intact. Respiratory: Lungs clear to auscultation, no adventitious lung sounds, raspy cough, currently on room air Gastrointestinal: soft, non-distended, non-tender, normoactive bowel sounds. : voiding without difficulty. Extremities: moves all extremities well, no edema Skin: clean, dry, intact. No wounds or lesions. R IJ TLC in place Neuro: Alert and oriented x4, cranial nerves intact, no neuro deficits. Psych: normal mood, normal affect, interactive Objective Data Vital Signs Vital Signs: Vital Signs - 24 hr 11/06/24 10:00 11/06/24 10:00 11/06/24 16:00 Temperature 98.3 F Pulse Rate 96 96 97 Respiratory Rate 22 H 18 Blood Pressure 148/96 H 137/85 Pulse Oximetry 98 99 Oxygen Delivery 11/06/24 20:00 11/06/24 20:17 11/06/24 20:24 Temperature 97.9 F Pulse Rate 87 90 Respiratory Rate 20 22 H Blood Pressure 150/90 H Pulse Oximetry 100 Oxygen Delivery Room Air 11/06/24 20:38 11/07/24 02:33 11/07/24 02:39 Temperature Pulse Rate 96 85 85 Respiratory Rate 22 H 20 20 Blood Pressure Pulse Oximetry Oxygen Delivery 11/07/24 03:35 11/07/24 08:28 11/07/24 08:28 Temperature 97.7 F Pulse Rate 73 82 Respiratory Rate 20 20 Blood Pressure 108/76 Pulse Oximetry 97 96 Oxygen Delivery Room Air 11/07/24 08:39 11/07/24 09:03 Temperature Pulse Rate 78 Respiratory Rate 20 Blood Pressure Pulse Oximetry Oxygen Delivery Room Air Intake/Output Intake/Output: Intake & Output 11/04/24 11/05/24 11/06/24 11/07/24 23:59 23:59 23:59 23:59 Intake Total 1500 1673.7 2080 480 Output Total 1175 5200 1200 Balance 1500 498.7 -3120 -720 Meds/Results Medications: Active Medications Generic Name Dose Route Start Last Admin Trade Name Freq PRN Reason Stop Dose Admin Acetaminophen 650 mg 11/05/24 12:50 11/06/24 16:56 Acetaminophen 325 Mg Tablet PO 650 mg Q6H PRN Administration Mild Pain (1-3) or Fever Albuterol/Ipratropium 3 ml 11/05/24 09:00 11/07/24 08:27 Ipratropium 0.5 Mg/Albuterol Sulfate 2.5 Mg Ampul.Neb 3 Ml INHALATION 3 ml Q6HRT LANCE Administration Apixaban 5 mg 11/05/24 09:00 11/07/24 09:12 Apixaban 5 Mg Tablet PO 5 mg Q12H LANCE Administration Budesonide 0.5 mg 11/05/24 09:00 11/07/24 08:27 Budesonide Respule Neb 0.5 Mg/2 Ml Amp INHALATION 0.5 mg Q12HRT LANCE Administration Dexamethasone Sodium Phosphate 6 mg 11/05/24 07:00 11/07/24 06:03 Dexamethasone Sod Phos Inj 10 Mg/Ml 1 Ml Vial IV PUSH 11/14/24 07:01 6 mg Q24H LANCE Administration Dextrose 12.5 gm 11/05/24 09:13 Dextrose 50% 25 Gm/50 Ml Syringe IV PUSH PRN PRN Hypoglycemia Protocol Glucagon 1 mg 11/05/24 09:13 Glucagon For Inj 1 Mg Vial IM PRN PRN Hypoglycemia Protocol Glucose 15 gm 11/05/24 09:13 Glucose Oral Gel 15 Gm Of Glucse In 37.5 Gm Tube PO PRN PRN Hypoglycemia Protocol Ceftriaxone Sodium 2 gm in 100 mls @ 200 mls/hr 11/05/24 09:00 11/07/24 09:12 Rocephin 2 Gm/Ns 100 Ml IVPB 200 mls/hr Q24H LANCE Administration Dextrose 1,000 mls @ 100 mls/hr 11/05/24 09:13 Dextrose 5% 1,000 Ml IVPB PRN PRN Hypoglycemia Protocol Insulin Aspart 1 - 3 units 11/05/24 21:00 11/06/24 21:27 Insulin Aspart (*Bkc) 100 Units/Ml SUB-Q Not Given HS [facility] Protocol Insulin Aspart 3 - 6 units 11/05/24 12:00 11/07/24 09:12 Insulin Aspart (*Bkc) 100 Units/Ml SUB-Q Not Given TIDWM [facility] Protocol Ondansetron HCl 4 mg 11/05/24 12:50 11/06/24 16:57 Ondansetron Inj 4 Mg/2 Ml Vial IV PUSH 4 mg Q6H PRN Administration Nausea And Vomiting Pantoprazole Sodium 40 mg 11/07/24 09:00 11/07/24 09:12 Pantoprazole 40 Mg Tablet PO 40 mg QAM LANCE Administration Perflutren Lipid Microsphere 0 ml 11/05/24 07:28 Perflutren Lipid Microspheres 1.5 Ml Vial Diluted To 10 Ml Total Volume IV PUSH 11/08/24 07:29 ONCE PRN adequate visualization Protocol Sodium Chloride 10 ml 11/05/24 14:00 11/07/24 05:58 Central Line Flush IV PUSH 10 ml Q8HR LANCE Administration Sodium Chloride 20 ml 11/05/24 10:02 11/07/24 03:47 Central Line Flush IV PUSH 20 ml PRN PRN Administration after blood draws Radiology Results: ITS Impressions Head CT 11/05/24 07:15 IMPRESSION: 1. Old infarcts in the bilateral basal ganglia. Thoracic Spine CT 11/05/24 08:35 IMPRESSION: 1. No fracture 2. Mild thoracic spondylosis. Cervical Spine CT 11/05/24 08:55 IMPRESSION: 1. No fracture. 2. Severe cervical spondylosis. Miscellaneous CT Procedure 11/05/24 09:03 IMPRESSION: 1. Mild left hydroureter, new from 06/28/24. No urolithiasis. 2. Mild lumbar spondylosis. Chest X-Ray 11/05/24 10:21 IMPRESSION: 1. Central line tip in the proximal right atrium. Renal Ultrasound 11/05/24 15:00 IMPRESSION: No renal mass lesion or hydronephrosis is detected Labs Labs: Laboratory Results - last 24 hr 11/06/24 11/06/24 11/06/24 11:24 16:58 20:31 WBC RBC Hgb Hct MCV MCH MCHC RDW Plt Count MPV Immature Gran % (Auto) Neut % (Auto) Lymph % (Auto) [place] % (Auto) Eos % (Auto) Baso % (Auto) Lymph # (Auto) [place] # (Auto) Eos # (Auto) Baso # (Auto) Abs Immat Gran (auto) Absolute Neuts (auto) Absolute Nucleated RBC Total Counted Neutrophils % (Manual) Band Neutrophils % Lymphocytes % (Manual) Monocytes % (Manual) Nucleated RBC % Abs Neuts (Manual) Abs Lymphs (Manual) Abs Monocytes (Manual) Platelet Estimate Large Platelets % Immature Plt Fraction Tear Drop Cells Schistocytes Sodium Potassium Chloride Carbon Dioxide Anion Gap BUN Creatinine Estim Creat Clear Calc Estimated GFR Glucose POC Capillary Glucose 182 H 169 H 161 H Calcium Phosphorus Magnesium Total Bilirubin AST ALT Alkaline Phosphatase Total Protein Albumin 11/07/24 11/07/24 03:41 08:04 WBC 11.5 H RBC 3.88 L Hgb 11.2 L Hct 32.7 L MCV 84.3 MCH 28.9 MCHC 34.3 RDW 13.6 Plt Count 92 L MPV 11.4 H Immature Gran % (Auto) Not Reportable Neut % (Auto) Not Reportable Lymph % (Auto) Not Reportable [place] % (Auto) Not Reportable Eos % (Auto) Not Reportable Baso % (Auto) Not Reportable Lymph # (Auto) Not Reportable [place] # (Auto) Not Reportable Eos # (Auto) Not Reportable Baso # (Auto) Not Reportable Abs Immat Gran (auto) Not Reportable Absolute Neuts (auto) Not Reportable Absolute Nucleated RBC Not Reportable Total Counted 100 Neutrophils % (Manual) 88 H Band Neutrophils % 5 Lymphocytes % (Manual) 4.0 L Monocytes % (Manual) 3 Nucleated RBC % Not Reportable Abs Neuts (Manual) 10.69 H Abs Lymphs (Manual) 0.46 L Abs Monocytes (Manual) 0.34 Platelet Estimate Decreased Large Platelets Present % Immature Plt Fraction 9.3 Tear Drop Cells 1+ Schistocytes None seen Sodium 134 L Potassium 3.9 Chloride 106 Carbon Dioxide 21 L Anion Gap 7 BUN 29 H Creatinine 1.10 H Estim Creat Clear Calc 48 Estimated GFR 50 L Glucose 165 H POC Capillary Glucose 184 H Calcium 9.1 Phosphorus 3.1 Magnesium 2.0 Total Bilirubin 0.8 AST 26 ALT 20 Alkaline Phosphatase 81 Total Protein 7.0 Albumin 3.4 L Quality VTE Prophylaxis VTE prophylaxis: pharmacologic ordered
[2024-11-07] MEDS: SOTALOL HCL 40 MG TABLET PO ×2 (11:30→20:26)
[2024-11-07] MEDS: CLOPIDOGREL BISULFATE 75 MG TABLET PO (11:31)
[2024-11-07] MEDS: LOSARTAN POTASSIUM 100 MG TABLET PO (11:31)
[2024-11-07] MEDS: SOTALOL HCL 80 MG TABLET PO ×2 (11:31→20:27)
[2024-11-07] MEDS: EZETIMIBE 10 MG TABLET PO (11:31)
[2024-11-07] MEDS: ACETAMINOPHEN 325 MG TABLET 650 MG PO (11:35)
[2024-11-07 12:17] LABS: Glucose Point of Care 205 mg/dl (65-105)
[2024-11-07] MEDS: INSULIN ASPART (*BKC) 100 UNITS/ML SUB-Q ×2 (12:29→20:28)
[2024-11-07 12:42] LABS: Osmolality, Urine 298 mOsm/kg (50-1200)
[2024-11-07] MEDS: LORazepam (*CRX) 0.5 MG TABLET PO (14:22)
[2024-11-07 17:08] LABS: Glucose Point of Care 197 mg/dl (65-105)
[2024-11-07] MEDS: FLUoxetine HCL 20 MG CAPSULE 40 MG PO (17:10)
[2024-11-07] MEDS: MONTELUKAST SODIUM 10 MG TABLET PO (17:10)
[2024-11-07 20:39] LABS: Glucose Point of Care 205 mg/dl (65-105)
[2024-11-08] VITALS (13 sets, daily range): BP systolic 146–152; BP diastolic 76–84; PULSE 59–82; RESP 16–20; TEMP 36.5–36.9; O2SAT 95–98
[2024-11-08] MEDS: IPRATROPIUM 0.5 MG/ALBUTEROL SULFATE 2.5 MG AMPUL.NEB 3 ML INHALATION ×5 (02:54→20:45)
[2024-11-08] MEDS: dexAMETHasone SOD PHOS INJ 10 MG/ML 1 ML VIAL 6 MG IV PUSH (06:16)
[2024-11-08] MEDS: CENTRAL LINE FLUSH 10 ML IV PUSH ×2 (06:22→13:11)
--- NOTE | 2024-11-08 07:06 | P.PNIM_ITS ---
Progress Note: A&P Assessment and Plan (1) Severe sepsis: Code(s): A41.9 - Sepsis, unspecified organism; R65.20 - Severe sepsis without septic shock Status: Acute Assessment and Plan: 11/04 Patient presented with generalized weakness, URI symptoms, flank pain in fall. Hypotensive in the ER with systolic in the 60s and heart rates in the 140s, lactic acid of 3.6 on admission, creatinine of 2.20, CO2 of 17, sodium of 122 -received 3.5 L of IV fluid bolus with improvement in her blood pressures and heart rate, she was also given metoprolol and Cardizem IV plus Cardizem infusion in the ER. Patient was transferred to the intermediate unit with Cardizem infusion was discontinued due to low blood pressures. * blood and urine cultures showing E coli on final read * 2nd set of blood cultures currently showing no growth to date on preliminary read * currently on Rocephin 2 g, vancomycin was discontinued 11/08 * Rocephin changed to Macrobid and will continue for 10 more days * RIJ Central line discontinued * blood cultures showing no growth to date on preliminary read (2) Pyelonephritis: Code(s): N12 - Tubulo-interstitial nephritis, not specified as acute or chronic Status: Acute Assessment and Plan: Status post recent cystoscopy which is likely cause of UTI/Pyelonephritis * initial urine and blood culture showing E coli which is pansensitive * Continue macrobid for 10 more days * Central line discontinued * New blood cultures showing no growth to date on preliminary read (3) Acute kidney injury: Code(s): N17.9 - Acute kidney failure, unspecified Status: Acute Assessment and Plan: Acute kidney injury likely related to hypotension, severe sepsis, UTI/pyelonephritis, hypovolemia. Denies any kidney problems. * CT scan of the abdomen and pelvis showed left hydroureter * Creatinine on admission is 2.20 * creatinine today 1.10 continues to trend downward * nephrology following * urology was consulted however there was no obstructive stone and likely pyelonephritis is due to ascending infection. Urology signed off. 11/08 * Creatinine unchanged at 1.10 today (4) Atrial fibrillation with RVR: Code(s): I48.91 - Unspecified atrial fibrillation Status: Acute Assessment and Plan: AFib RVR in the ER with heart rate in the 140s * Initially treated with metoprolol and Cardizem however Cardizem drop blood pressure and it was discontinued while in the intensive care unit * continue Eliquis and sotalol (5) COVID-19: Code(s): U07.1 - COVID-19 Status: Acute Assessment and Plan: * respiratory panel positive for COVID * continue dexamethasone * not a candidate for remdesivir * continue isolation (6) Hyponatremia: Code(s): E87.1 - Hypo-osmolality and hyponatremia Status: Acute Assessment and Plan: * initial sodium 122, appears to be chronic * currently 133 * nephrology following Time Spent With Patient Time with patient: Greater than 35 minutes Subjective Date/time seen: 11/08/24 07:06 Interval history: Interval history: This is a 63-year-old female With history of bladder cancer status post cystoscopy who presented to the hospital on 11/05/2024 with generalized weakness which has been ongoing for the last 4 days. She was initially meeting sepsis criteria with elevated heart rate, low blood pressure, lactic acidosis, acute ki dney injury. workup in the hospital included a chest x-ray which was negative. 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 Cervical spine CT was negative for fracture, showed severe cervical spondylosis. Thoracic CT was negative for fracture showed mild thoracic spondylosis. CT of the abdomen and pelvis and lumbar without contrast showed mild left hydroureter new from 06/28/2024, no urolithiasis, mild lumbar spondylosis. Renal ultrasound was negative for any renal mass, lesion, or hydronephrosis. she was initially admitted to the intensive care unit and received 3.5 L of IV fluids with improvement in her blood pressure and heart rate. EKG showed AFib with RVR with a rate of 104 QTC 478. initial labs revealed a white blood cell count of 18.8, hemoglobin 16.5, sodium 22, chloride 93, bicarb 17, creatinine 2.20, EGFR 23, lactic acid 3.6> 3.1> 1.3> 1.0, magnesium 1.5, troponin 0.045> 0.025, C reactive protein greater than 45. Random cortisol was 46.10. UA was obtained and showed turbid urine appearance, 3+ urine protein, 3+ urine blood, positive nitrate, 2+ leukocyte, greater than 100 urine RBC, greater than 100 urine WBC, 4+ urine bacteria. Respiratory panel was positive for COVID. Urine culture showing E coli on final read which was relatively pansensitive. Blood cultures on 11/04/2024 resulted with E coli. New blood cultures drawn on 11/06/2024 are s howing no growth to date on preliminary read. Patient was started on a Cardizem drip while in the ICU however blood pressure started to drop and Cardizem was discontinued. She was started on a Levophed infusion while in the ICU and was weaned off when blood pressures improved.. Patient was also placed Rocephin and vancomycin. Vancomycin was deescalated. She was continued on dexamethasone 6 mg IV push Q 24 hours. She did not receive any Remdesivir. Nephrology was consulted for JAYLEN. Urology was also consulted considering the history of bladder cancer. Urology feels this is not an obstruction and that the pyelonephritis is due to an ascending urinary tract infection. Hurley catheter was discontinued. Subjective: Patient denies any new complaints overnight. Labs reviewed. Review of Systems Review of Systems: All systems reviewed & are unremarkable except as noted in HPI and below Constitutional: Constitutional: Reports as per HPI and Reports no additional constitutional complaints Eyes: Eyes: Reports as per HPI and Reports no additional eye complaints ENT: Reports system reviewed and no additional complaints, except as documented and Reports as per HPI Cardiovascular: Cardiovascular: Reports as per HPI and Reports no additional cardiovascular complaints Respiratory: Respiratory: Reports as per HPI and Reports no additional respiratory complaints Gastrointestinal: Gastrointestinal: Reports as per HPI and Reports no additional gastrointestinal complaints Genitourinary: Genitourinary: Reports no additional female genitourinary complaints and Reports as per HPI Musculoskeletal: Musculoskeletal: Reports no additional musculoskeletal complaints and Reports as per HPI Integumentary/Breasts: Skin/Breast: Reports system reviewed and no additional complaints, except as docu and Reports as per HPI Neurologic: Reports system reviewed and no additional complaints, except as documented and Reports as per HPI Psychiatric: Psychiatric: Reports no additional psychiatric complaints and Reports as per HPI Exam Narrative: General: In no acute distress, well nourished Cardiac: Normal S1 and S2. No murmur, gallops or friction rubs, peripheral pulses intact. Respiratory: Lungs clear to auscultation, no adventitious lung sounds, raspy cough, currently on room air Gastrointestinal: soft, non-distended, non-tender, normoactive bowel sounds. : voiding without difficulty. Skin: R IJ TLC in place Neuro: Alert and oriented x4 Objective Data Vital Signs Vital Signs: Vital Signs - 24 hr 11/07/24 08:28 11/07/24 08:28 11/07/24 08:39 Temperature Pulse Rate 82 78 Respiratory Rate 20 20 Blood Pressure Pulse Oximetry 96 Oxygen Delivery Room Air 11/07/24 09:03 11/07/24 09:20 11/07/24 11:17 Temperature Pulse Rate Respiratory Rate Blood Pressure Pulse Oximetry Oxygen Delivery Room Air Room Air Room Air 11/07/24 12:00 11/07/24 13:25 11/07/24 14:02 Temperature 97.7 F Pulse Rate 81 Respiratory Rate 18 Blood Pressure 126/86 Pulse Oximetry 99 96 98 Oxygen Delivery Room Air Room Air 11/07/24 14:02 11/07/24 14:17 11/07/24 20:26 Temperature Pulse Rate 72 76 71 Respiratory Rate 20 20 Blood Pressure Pulse Oximetry Oxygen Delivery 11/07/24 20:27 11/07/24 20:30 11/07/24 22:12 Temperature Pulse Rate 71 74 Respiratory Rate 20 Blood Pressure Pulse Oximetry Oxygen Delivery Room Air 11/07/24 22:22 11/07/24 23:51 11/08/24 02:57 Temperature 97.8 F Pulse Rate 76 61 74 Respiratory Rate 20 20 20 Blood Pressure 128/82 Pulse Oximetry 97 Oxygen Delivery 11/08/24 03:10 11/08/24 06:25 Temperature 97.7 F Pulse Rate 75 65 Respiratory Rate 20 16 Blood Pressure 152/76 H Pulse Oximetry 95 Oxygen Delivery Intake/Output Intake/Output: Intake & Output 11/05/24 11/06/24 11/07/24 11/08/24 23:59 23:59 23:59 23:59 Intake Total 1673.7 2080 1660 750 Output Total 1175 5200 2000 1500 Balance 498.7 -3120 -340 -750 Meds/Results Medications: Active Medications Generic Name Dose Route Start Last Admin Trade Name Freq PRN Reason Stop Dose Admin Acetaminophen 650 mg 11/05/24 12:50 11/07/24 11:35 Acetaminophen 325 Mg Tablet PO 650 mg Q6H PRN Administration Mild Pain (1-3) or Fever Albuterol/Ipratropium 3 ml 11/05/24 09:00 11/08/24 02:57 Ipratropium 0.5 Mg/Albuterol Sulfate 2.5 Mg Ampul.Neb 3 Ml INHALATION 3 ml Q6HRT LANCE Administration Apixaban 5 mg 11/05/24 09:00 11/07/24 20:26 Apixaban 5 Mg Tablet PO 5 mg Q12H LANCE Administration Budesonide 0.5 mg 11/05/24 09:00 11/07/24 22:12 Budesonide Respule Neb 0.5 Mg/2 Ml Amp INHALATION 0.5 mg Q12HRT LANCE Administration Clopidogrel Bisulfate 75 mg 11/07/24 10:50 11/07/24 11:31 Clopidogrel Bisulfate 75 Mg Tablet PO 75 mg DAILY LANCE Administration Dexamethasone Sodium Phosphate 6 mg 11/05/24 07:00 11/08/24 06:16 Dexamethasone Sod Phos Inj 10 Mg/Ml 1 Ml Vial IV PUSH 11/14/24 07:01 6 mg Q24H LANCE Administration Dextrose 12.5 gm 11/05/24 09:13 Dextrose 50% 25 Gm/50 Ml Syringe IV PUSH PRN PRN Hypoglycemia Protocol Ezetimibe 10 mg 11/07/24 10:50 11/07/24 11:31 Ezetimibe 10 Mg Tablet PO 10 mg DAILY LANCE Administration Fluoxetine HCl 40 mg 11/07/24 18:00 11/07/24 17:10 Fluoxetine Hcl 20 Mg Capsule PO 40 mg QPM LANCE Administration Glucagon 1 mg 11/05/24 09:13 Glucagon For Inj 1 Mg Vial IM PRN PRN Hypoglycemia Protocol Glucose 15 gm 11/05/24 09:13 Glucose Oral Gel 15 Gm Of Glucse In 37.5 Gm Tube PO PRN PRN Hypoglycemia Protocol Ceftriaxone Sodium 2 gm in 100 mls @ 200 mls/hr 11/05/24 09:00 11/07/24 09:12 Rocephin 2 Gm/Ns 100 Ml IVPB 200 mls/hr Q24H LANCE Administration Dextrose 1,000 mls @ 100 mls/hr 11/05/24 09:13 Dextrose 5% 1,000 Ml IVPB PRN PRN Hypoglycemia Protocol Insulin Aspart 1 - 3 units 11/05/24 21:00 11/07/24 20:28 Insulin Aspart (*Bkc) 100 Units/Ml SUB-Q 1 units HS LANCE Administration Protocol Insulin Aspart 3 - 6 units 11/05/24 12:00 11/07/24 17:13 Insulin Aspart (*Bkc) 100 Units/Ml SUB-Q Not Given TIDWM LANCE Protocol Lorazepam 0.5 mg 11/07/24 14:15 11/07/24 14:22 Lorazepam (*Crx) 0.5 Mg Tablet PO 0.5 mg Q6H PRN Administration Anxiety Losartan Potassium 100 mg 11/07/24 10:50 11/07/24 11:31 Losartan Potassium 100 Mg Tablet PO 100 mg DAILY LANCE Administration Miscellaneous Information 0 each 11/07/24 00:01 Fenofibrate 120 Mg Is Nonformulary - We Carry 145 Mg - Sub For This? XX 12/07/24 00:00 CLARIFY LANCE Montelukast Sodium 10 mg 11/07/24 18:00 11/07/24 17:10 Montelukast Sodium 10 Mg Tablet PO 10 mg QPM LANCE Administration Non-Formulary Medication 120 mg 11/08/24 09:00 Fenofibrate PO 12/08/24 08:59 DAILY LANCE Ondansetron HCl 4 mg 11/05/24 12:50 11/06/24 16:57 Ondansetron Inj 4 Mg/2 Ml Vial IV PUSH 4 mg Q6H PRN Administration Nausea And Vomiting Pantoprazole Sodium 40 mg 11/07/24 09:00 11/07/24 09:12 Pantoprazole 40 Mg Tablet PO 40 mg QAM LANCE Administration Perflutren Lipid Microsphere 0 ml 11/05/24 07:28 Perflutren Lipid Microspheres 1.5 Ml Vial Diluted To 10 Ml Total Volume IV PUSH 11/08/24 07:29 ONCE PRN adequate visualization Protocol Sodium Chloride 10 ml 11/05/24 14:00 11/08/24 06:22 Central Line Flush IV PUSH 10 ml Q8HR LANCE Administration Sodium Chloride 20 ml 11/05/24 10:02 11/07/24 03:47 Central Line Flush IV PUSH 20 ml PRN PRN Administration after blood draws Sotalol HCl 40 mg 11/07/24 10:45 11/07/24 20:26 Sotalol Hcl 40 Mg Tablet PO 40 mg Q12HR LANCE Administration Sotalol HCl 80 mg 11/07/24 10:45 11/07/24 20:27 Sotalol Hcl 80 Mg Tablet PO 80 mg Q12HR LANCE Administration Radiology Results: ITS Impressions Head CT 11/05/24 07:15 IMPRESSION: 1. Old infarcts in the bilateral basal ganglia. Thoracic Spine CT 11/05/24 08:35 IMPRESSION: 1. No fracture 2. Mild thoracic spondylosis. Cervical Spine CT 11/05/24 08:55 IMPRESSION: 1. No fracture. 2. Severe cervical spondylosis. Miscellaneous CT Procedure 11/05/24 09:03 IMPRESSION: 1. Mild left hydroureter, new from 06/28/24. No urolithiasis. 2. Mild lumbar spondylosis. Chest X-Ray 11/05/24 10:21 IMPRESSION: 1. Central line tip in the proximal right atrium. Renal Ultrasound 11/05/24 15:00 IMPRESSION: No renal mass lesion or hydronephrosis is detected Labs Labs: Laboratory Results - last 24 hr 11/05/24 11/05/24 11/07/24 06:23 10:37 08:04 POC Capillary Glucose 184 H Serum Osmolality 280 Urine Osmolality 298 11/07/24 11/07/24 11/07/24 12:10 17:02 20:25 POC Capillary Glucose 205 H 197 H 205 H Serum Osmolality Urine Osmolality Quality VTE Prophylaxis VTE prophylaxis: pharmacologic ordered
[2024-11-08] MEDS: BUDESONIDE RESPULE NEB 0.5 MG/2 ML AMP INHALATION ×2 (07:33→20:44)
[2024-11-08 08:09] LABS: Glucose Point of Care 155 mg/dl (65-105)
[2024-11-08] MEDS: ACETAMINOPHEN 325 MG TABLET 650 MG PO (09:22)
[2024-11-08] MEDS: CLOPIDOGREL BISULFATE 75 MG TABLET PO (09:23)
[2024-11-08] MEDS: EZETIMIBE 10 MG TABLET PO (09:23)
[2024-11-08] MEDS: LOSARTAN POTASSIUM 100 MG TABLET PO (09:24)
[2024-11-08] MEDS: APIXABAN 5 MG TABLET PO ×2 (09:24→21:44)
[2024-11-08] MEDS: PANTOPRAZOLE 40 MG TABLET PO (09:24)
[2024-11-08] MEDS: cefTRIAXone 2 GM/NS 100 ML 2 GM/100 ML BAG IVPB (09:24)
[2024-11-08] MEDS: SOTALOL HCL 40 MG TABLET PO ×2 (09:27→21:45)
[2024-11-08] MEDS: SOTALOL HCL 80 MG TABLET PO ×2 (09:27→21:45)
[2024-11-08 10:00] LABS: Alanine Aminotransferase 20 U/L (6-35); Albumin Level 3.6 g/dL (3.5-5.1); Alkaline Phosphatase 76 U/L (38-126); Anion Gap 7 mmol/L (4-12); Aspartate Amino Transferase 23 U/L (14-36); Bilirubin,Total 0.8 mg/dL (0.2-1.3); Blood Urea Nitrogen 41 mg/dL (7-17); Carbon Dioxide 23 mmol/L (22-30); Chloride 103 mmol/L (98-107); Estimated CRCL calculation 48 ml/min; Estimated Glomerular Filt Rate 50; Glucose 241 mg/dL (65-110); Potassium 4.3 mmol/L (3.4-5.0); Sodium 133 mmol/L (137-145)
[2024-11-08 10:10] LABS: Basophils Percent Auto 0.3 % (0.2-1.2); Hematocrit 36.2 % (37.0-47.0); Immature Granulocyte Absolute 0.12 K/mm3 (0.00-0.031); Immature Granulocyte Percent A 1.1 % (0-0.5); Lymphocytes Absolute Auto 0.88 K/mm3 (0.9-3.2); Lymphocytes Percent Auto 8.1 % (18.3-44.2); Mean Corpuscular HGB Conc 33.1 g/dl (32-36); Mean Corpuscular Hemoglobin 28.6 pg (26-34); Mean Corpuscular Volume 86.2 fl (80-100); Mean Platelet Volume 11.7 fl (7.4-10.4); Monocytes Absolute Auto 0.4 K/mm3 (0.1-0.6); Monocytes Percent Auto 3.7 % (2.6-8.5); Neutrophils Absolute Auto 9.4 K/mm3 (1.3-6.7); Neutrophils Percent Auto 86.8 % (45.5-73.1); Platelet Count Result 144 k/mm3 (150-375); Red Cell Distribution Width 13.9 % (11.5-14.5); White Blood Count 10.9 K/mm3 (4.5-10.0)
[2024-11-08 10:59] LABS: Atypical Lymphocytes Present; Large Platelets Present; Platelet Estimate Slightly Decreased (Adequate); Schistocytes None Seen
[2024-11-08 12:01] LABS: Glucose Point of Care 226 mg/dl (65-105)
[2024-11-08] MEDS: ONDANSETRON INJ 4 MG/2 ML VIAL IV PUSH (13:04)
[2024-11-08] MEDS: INSULIN ASPART (*BKC) 100 UNITS/ML SUB-Q (13:05)
[2024-11-08] MEDS: LORazepam (*CRX) 0.5 MG TABLET PO ×2 (13:14→22:02)
[2024-11-08] MEDS: NEOMYCIN/POLYMYXIN/BACITRACIN OINTMENT PACKET 1 PACKET (16:15)
[2024-11-08 17:05] LABS: Glucose Point of Care 166 mg/dl (65-105)
[2024-11-08] MEDS: MONTELUKAST SODIUM 10 MG TABLET PO (17:25)
[2024-11-08] MEDS: FLUoxetine HCL 20 MG CAPSULE 40 MG PO (17:25)
[2024-11-08] MEDS: HYDROcodone/acetaminophen (*CRX) 5-325 MG TABLET 1 TAB PO (18:04)
[2024-11-08 19:06] LABS: Glucose Point of Care 238 mg/dl (65-105)
[2024-11-08] MEDS: NITROFURANTOIN MONOHYD MACROCR 100 MG CAP PO (21:44)
[2024-11-08 21:46] LABS: Glucose Point of Care 152 mg/dl (65-105)
[2024-11-09] VITALS (8 sets, daily range): BP systolic 144–171; BP diastolic 85–89; PULSE 67–79; RESP 16–20; TEMP 36.5–36.8; O2SAT 96–97
[2024-11-09] MEDS: ONDANSETRON HCL ODT 4 MG TABLET PO ×2 (05:49→13:25)
--- NOTE | 2024-11-09 05:54 | PCRCNOTE ---
Window of time for administration has passed. See next scheduled administration.
[2024-11-09] MEDS: BUDESONIDE RESPULE NEB 0.5 MG/2 ML AMP INHALATION ×2 (07:21→20:35)
[2024-11-09] MEDS: IPRATROPIUM 0.5 MG/ALBUTEROL SULFATE 2.5 MG AMPUL.NEB 3 ML INHALATION ×3 (07:21→20:35)
[2024-11-09] MEDS: dexAMETHasone 2 MG TABLET 6 MG PO (08:29)
[2024-11-09] MEDS: NITROFURANTOIN MONOHYD MACROCR 100 MG CAP PO ×2 (08:29→20:30)
[2024-11-09] MEDS: SOTALOL HCL 80 MG TABLET PO ×2 (08:29→20:30)
[2024-11-09] MEDS: ACETAMINOPHEN 325 MG TABLET 650 MG PO ×2 (08:30→20:29)
[2024-11-09] MEDS: APIXABAN 5 MG TABLET PO ×2 (08:30→20:29)
[2024-11-09] MEDS: EZETIMIBE 10 MG TABLET PO (08:30)
[2024-11-09] MEDS: SOTALOL HCL 40 MG TABLET PO ×2 (08:30→20:30)
[2024-11-09] MEDS: PANTOPRAZOLE 40 MG TABLET PO (08:30)
[2024-11-09] MEDS: CLOPIDOGREL BISULFATE 75 MG TABLET PO (08:30)
[2024-11-09] MEDS: LOSARTAN POTASSIUM 100 MG TABLET PO (08:30)
[2024-11-09 08:54] LABS: Glucose Point of Care 204 mg/dl (65-105)
[2024-11-09 12:13] LABS: Glucose Point of Care 261 mg/dl (65-105)
--- NOTE | 2024-11-09 13:24 | P.PNIM_ITS ---
Progress Note: A&P Assessment and Plan (1) Severe sepsis: Code(s): A41.9 - Sepsis, unspecified organism; R65.20 - Severe sepsis without septic shock Status: Acute Assessment and Plan: 11/04 Patient presented with generalized weakness, URI symptoms, flank pain in fall. Hypotensive in the ER with systolic in the 60s and heart rates in the 140s, lactic acid of 3.6 on admission, creatinine of 2.20, CO2 of 17, sodium of 122 -received 3.5 L of IV fluid bolus with improvement in her blood pressures and heart rate, she was also given metoprolol and Cardizem IV plus Cardizem infusion in the ER. Patient was transferred to the intermediate unit with Cardizem infusion was discontinued due to low blood pressures. * blood and urine cultures showing E coli on final read * 2nd set of blood cultures currently showing no growth to date on preliminary read * currently on Rocephin 2 g, vancomycin was discontinued 11/08 * Rocephin changed to Macrobid and will continue for 10 more days * RIJ Central line discontinued * blood cultures showing no growth to date on preliminary read 11/09/24: * No longer meeting criteria. Blood cultures remain without growth. * Pt on oral abx of Nitrofurantoin to extend to 11/18/24. (2) Pyelonephritis: Code(s): N12 - Tubulo-interstitial nephritis, not specified as acute or chronic Status: Acute Assessment and Plan: Status post recent cystoscopy which is likely cause of UTI/Pyelonephritis * initial urine and blood culture showing E coli which is pansensitive * Continue macrobid for 10 more days * Central line discontinued * New blood cultures showing no growth to date on preliminary read 11/09/24: * See #1 (3) Acute kidney injury: Code(s): N17.9 - Acute kidney failure, unspecified Status: Acute Assessment and Plan: Acute kidney injury likely related to hypotension, severe sepsis, UTI/pyelonephritis, hypovolemia. Denies any kidney problems. * CT scan of the abdomen and pelvis showed left hydroureter * Creatinine on admission is 2.20 * creatinine today 1.10 continues to trend downward * nephrology following * urology was consulted however there was no obstructive stone and likely pyelonephritis is due to ascending infection. Urology signed off. 12/25 * Creatinine unchanged at 1.10 today (4) Atrial fibrillation with RVR: Code(s): I48.91 - Unspecified atrial fibrillation Status: Acute Assessment and Plan: AFib RVR in the ER with heart rate in the 140s * Initially treated with metoprolol and Cardizem however Cardizem drop blood pressure and it was discontinued while in the intensive care unit * continue Eliquis and sotalol (5) COVID-19: Code(s): U07.1 - COVID-19 Status: Acute Assessment and Plan: * respiratory panel positive for COVID * continue dexamethasone * not a candidate for remdesivir * continue isolation (6) Hyponatremia: Code(s): E87.1 - Hypo-osmolality and hyponatremia Status: Acute Assessment and Plan: * initial sodium 122, appears to be chronic * currently 133 * nephrology following 11/09/24: * Nephrology has signed off of care. Plan Pt is medically clear for discharge but she is insistent that she has no one to help her at home even though she has been deemed to be independent by PT and OT. She has new complaints today of constipation, N/V. Although none of this was witnessed or reported to RN. Pt will have an obstructive series and is ordered prn zofran and miralax. If negative workup today, she is stable for discharge to home tomorrow. Discussed with care coordination and they will also discuss with the pt. Time Spent With Patient Time with patient: 15 - 25 minutes Subjective Date/time seen: 11/09/24 13:24 Interval history: This pt was evaluated this afternoon at the bedside and she is technically deemed medically clear for discharge and has also been discharged by therapy, and signed off on by Nephrology as well but she states she has been nauseated today as well as constipated and vomited once. She has not asked for any prn meds nor did the nurse have any knowledge of her vomiting. Pt states she cannot return home as she does not feel well and she has no help at home. When asked about the in home help that PT has documented that she has, the pt states that they are on vacation for two weeks. I discussed with pt that she can stay today, I am going to do an obstructive series and will give her PRN's for N/V but since she has been determined to be independent, if nothing is abnormal on today's workup she is still cleared for discharge tomorrow. Review of Systems Review of Systems: All systems reviewed & are unremarkable except as noted in HPI and below Exam Narrative: General: In no acute distress, well nourished, lying on her left side upon my entry to room. Cardiac: Normal S1 and S2. No murmur, gallops or friction rubs, peripheral pulses intact. Respiratory: Lungs clear to auscultation, no adventitious lung sounds, raspy cough, currently on room air Gastrointestinal: soft, non-distended, + Epigastric tenderness, normoactive bowel sounds. : voiding without difficulty. Skin: Scattered bruising about the extremities. Neuro: Alert and oriented x4 Objective Data Vital Signs Vital Signs: Vital Signs - 24 hr 11/08/24 13:30 11/08/24 13:39 11/08/24 15:12 Temperature 97.8 F Pulse Rate 70 72 61 Respiratory Rate 20 18 17 Blood Pressure 152/84 H Pulse Oximetry 98 Oxygen Delivery 11/08/24 20:45 11/08/24 20:45 11/08/24 21:03 Temperature Pulse Rate 78 82 Respiratory Rate 18 18 Blood Pressure Pulse Oximetry 98 Oxygen Delivery Autopap 11/08/24 21:45 11/08/24 21:45 11/08/24 21:48 Temperature 98.4 F Pulse Rate 78 78 59 L Respiratory Rate 18 Blood Pressure 146/76 H Pulse Oximetry 97 Oxygen Delivery 11/09/24 07:20 11/09/24 08:29 11/09/24 08:30 Temperature Pulse Rate 68 77 77 Respiratory Rate 20 Blood Pressure Pulse Oximetry 97 Oxygen Delivery Room Air 11/09/24 08:36 Temperature Pulse Rate Respiratory Rate Blood Pressure Pulse Oximetry Oxygen Delivery Room Air Intake/Output Intake/Output: Intake & Output 11/06/24 11/07/24 11/08/24 11/09/24 23:59 23:59 23:59 23:59 Intake Total 2080 1760 2620 240 Output Total 5200 2000 2600 Balance -3120 -240 20 240 Meds/Results Medications: Active Medications Generic Name Dose Route Start Last Admin Trade Name Freq PRN Reason Stop Dose Admin Acetaminophen 650 mg 11/05/24 12:50 11/09/24 08:30 Acetaminophen 325 Mg Tablet PO 650 mg Q6H PRN Administration Mild Pain (1-3) or Fever Hydrocodone Bitart/Acetaminophen 1 tab 11/08/24 12:30 11/08/24 18:04 Hydrocodone/Acetaminophen (*Crx) 5-325 Mg Tablet PO 1 tab Q4H PRN Administration Pain Rated 4-6 Albuterol/Ipratropium 3 ml 11/05/24 09:00 11/09/24 13:03 Ipratropium 0.5 Mg/Albuterol Sulfate 2.5 Mg Ampul.Neb 3 Ml INHALATION 3 ml Q6HRT LANCE Administration Apixaban 5 mg 11/05/24 09:00 11/09/24 08:30 Apixaban 5 Mg Tablet PO 5 mg Q12H LANCE Administration Budesonide 0.5 mg 11/05/24 09:00 11/09/24 07:21 Budesonide Respule Neb 0.5 Mg/2 Ml Amp INHALATION 0.5 mg Q12HRT LANCE Administration Clopidogrel Bisulfate 75 mg 11/07/24 10:50 11/09/24 08:30 Clopidogrel Bisulfate 75 Mg Tablet PO 75 mg DAILY LANCE Administration Dexamethasone 6 mg 11/09/24 08:00 11/09/24 08:29 Dexamethasone 2 Mg Tablet PO 11/18/24 08:01 6 mg DAILY@0800 LANCE Administration Dextrose 12.5 gm 11/05/24 09:13 Dextrose 50% 25 Gm/50 Ml Syringe IV PUSH PRN PRN Hypoglycemia Protocol Ezetimibe 10 mg 11/07/24 10:50 11/09/24 08:30 Ezetimibe 10 Mg Tablet PO 10 mg DAILY LANCE Administration Fluoxetine HCl 40 mg 11/07/24 18:00 11/08/24 17:25 Fluoxetine Hcl 20 Mg Capsule PO 40 mg QPM LANCE Administration Glucagon 1 mg 11/05/24 09:13 Glucagon For Inj 1 Mg Vial IM PRN PRN Hypoglycemia Protocol Glucose 15 gm 11/05/24 09:13 Glucose Oral Gel 15 Gm Of Glucse In 37.5 Gm Tube PO PRN PRN Hypoglycemia Protocol Dextrose 1,000 mls @ 100 mls/hr 11/05/24 09:13 Dextrose 5% 1,000 Ml IVPB PRN PRN Hypoglycemia Protocol Insulin Aspart 1 - 3 units 11/05/24 21:00 11/08/24 21:40 Insulin Aspart (*Bkc) 100 Units/Ml SUB-Q Not Given HS LANCE Protocol Insulin Aspart 3 - 6 units 11/05/24 12:00 11/09/24 12:37 Insulin Aspart (*Bkc) 100 Units/Ml SUB-Q Not Given TIDWM [facility] Protocol Lorazepam 0.5 mg 11/07/24 14:15 11/08/24 22:02 Lorazepam (*Crx) 0.5 Mg Tablet PO 0.5 mg Q6H PRN Administration Anxiety Losartan Potassium 100 mg 11/07/24 10:50 11/09/24 08:30 Losartan Potassium 100 Mg Tablet PO 100 mg DAILY LANCE Administration Miscellaneous Information 0 each 11/07/24 00:01 Fenofibrate 120 Mg Is Nonformulary - We Carry 145 Mg - Sub For This? XX 12/07/24 00:00 CLARIFY LANCE Montelukast Sodium 10 mg 11/07/24 18:00 11/08/24 17:25 Montelukast Sodium 10 Mg Tablet PO 10 mg QPM LANCE Administration Nitrofurantoin Macrocrystals 100 mg 11/08/24 21:00 11/09/24 08:29 Nitrofurantoin Monohyd Macrocr 100 Mg Cap PO 11/18/24 20:59 100 mg Q12HR LANCE Administration Non-Formulary Medication 120 mg 11/08/24 09:00 Fenofibrate PO 12/08/24 08:59 DAILY LANCE Ondansetron HCl 4 mg 11/08/24 14:53 11/09/24 05:49 Ondansetron Hcl Odt 4 Mg Tablet PO 4 mg Q6H PRN Administration Nausea And Vomiting Pantoprazole Sodium 40 mg 11/07/24 09:00 11/09/24 08:30 Pantoprazole 40 Mg Tablet PO 40 mg QAM LANCE Administration Sotalol HCl 40 mg 11/07/24 10:45 11/09/24 08:30 Sotalol Hcl 40 Mg Tablet PO 40 mg Q12HR LANCE Administration Sotalol HCl 80 mg 11/07/24 10:45 11/09/24 08:29 Sotalol Hcl 80 Mg Tablet PO 80 mg Q12HR LANCE Administration Radiology Results: ITS Impressions Head CT 11/05/24 07:15 IMPRESSION: 1. Old infarcts in the bilateral basal ganglia. Thoracic Spine CT 11/05/24 08:35 IMPRESSION: 1. No fracture 2. Mild thoracic spondylosis. Cervical Spine CT 11/05/24 08:55 IMPRESSION: 1. No fracture. 2. Severe cervical spondylosis. Miscellaneous CT Procedure 11/05/24 09:03 IMPRESSION: 1. Mild left hydroureter, new from 06/28/24. No urolithiasis. 2. Mild lumbar spondylosis. Chest X-Ray 11/05/24 10:21 IMPRESSION: 1. Central line tip in the proximal right atrium. Renal Ultrasound 11/05/24 15:00 IMPRESSION: No renal mass lesion or hydronephrosis is detected Labs Labs: Laboratory Results - last 24 hr 11/08/24 11/08/24 11/08/24 17:00 18:53 21:38 POC Capillary Glucose 166 H 238 H 152 H 11/09/24 11/09/24 08:51 12:10 POC Capillary Glucose 204 H 261 H Quality VTE Prophylaxis VTE prophylaxis: pharmacologic ordered
[2024-11-09 17:30] LABS: Glucose Point of Care 229 mg/dl (65-105)
[2024-11-09] MEDS: FLUoxetine HCL 20 MG CAPSULE 40 MG PO (17:40)
[2024-11-09] MEDS: MONTELUKAST SODIUM 10 MG TABLET PO (17:40)
[2024-11-09] MEDS: INSULIN ASPART (*BKC) 100 UNITS/ML SUB-Q (17:41)
[2024-11-09 22:04] LABS: Glucose Point of Care 174 mg/dl (65-105)
[2024-11-10] VITALS (10 sets, daily range): BP systolic 116–148; BP diastolic 82–97; PULSE 67–81; RESP 12–18; TEMP 36.2–36.5; O2SAT 94–97
[2024-11-10] MEDS: LORazepam (*CRX) 0.5 MG TABLET PO (00:28)
[2024-11-10] MEDS: ONDANSETRON HCL ODT 4 MG TABLET PO ×2 (00:28→12:18)
[2024-11-10] MEDS: IPRATROPIUM 0.5 MG/ALBUTEROL SULFATE 2.5 MG AMPUL.NEB 3 ML INHALATION ×3 (02:54→13:04)
[2024-11-10] MEDS: ACETAMINOPHEN 325 MG TABLET 650 MG PO ×2 (05:32→15:34)
[2024-11-10 06:04] LABS: Basophils Absolute Auto 0.1 K/mm3 (0.0-0.1); Basophils Percent Auto 0.4 % (0.2-1.2); Eosinophils Absolute Auto 0.1 K/mm3 (0-0.3); Eosinophils Percent Auto 0.6 % (0-4.4); Hematocrit 38.9 % (37.0-47.0); Immature Granulocyte Absolute 0.25 K/mm3 (0.00-0.031); Immature Granulocyte Percent A 1.6 % (0-0.5); Lymphocytes Absolute Auto 1.95 K/mm3 (0.9-3.2); Lymphocytes Percent Auto 12.5 % (18.3-44.2); Mean Corpuscular HGB Conc 33.4 g/dl (32-36); Mean Corpuscular Hemoglobin 28.2 pg (26-34); Mean Corpuscular Volume 84.4 fl (80-100); Mean Platelet Volume 11.3 fl (7.4-10.4); Monocytes Percent Auto 6.4 % (2.6-8.5); Neutrophils Absolute Auto 12.3 K/mm3 (1.3-6.7); Neutrophils Percent Auto 78.5 % (45.5-73.1); Platelet Count Result 202 k/mm3 (150-375); Red Blood Count 4.61 M/mm3 (4.2-5.4); Red Cell Distribution Width 13.2 % (11.5-14.5); White Blood Count 15.6 K/mm3 (4.5-10.0)
[2024-11-10 06:12] LABS: Alanine Aminotransferase 29 U/L (6-35); Albumin Level 3.4 g/dL (3.5-5.1); Alkaline Phosphatase 76 U/L (38-126); Anion Gap 4 mmol/L (4-12); Aspartate Amino Transferase 23 U/L (14-36); Bilirubin,Total 1.8 mg/dL (0.2-1.3); Blood Urea Nitrogen 34 mg/dL (7-17); Calcium 8.3 mg/dL (8.4-10.2); Carbon Dioxide 24 mmol/L (22-30); Chloride 99 mmol/L (98-107); Estimated CRCL calculation 59 ml/min; Estimated Glomerular Filt Rate > 60; Glucose 112 mg/dL (65-110); Magnesium 1.5 mg/dL (1.6-2.3); Potassium 3.4 mmol/L (3.4-5.0); Sodium 127 mmol/L (137-145)
[2024-11-10] MEDS: BUDESONIDE RESPULE NEB 0.5 MG/2 ML AMP INHALATION (08:10)
--- NOTE | 2024-11-10 08:14 | P.DS_ITS ---
DS: Admitting Diagnosis Discharge Date 11/10/24 Admitting Diagnosis Hyponatremia COVID-19 AFib with RVR Pyelonephritis Sepsis Severe sepsis Acute kidney injury Electrolyte abnormality DS: Discharge Diagnosis Discharge Diagnosis (1) Severe sepsis: Code(s): A41.9 - Sepsis, unspecified organism; R65.20 - Severe sepsis without septic shock Status: Acute (2) Pyelonephritis: Code(s): N12 - Tubulo-interstitial nephritis, not specified as acute or chronic Status: Acute (3) Acute kidney injury: Code(s): N17.9 - Acute kidney failure, unspecified Status: Acute (4) Atrial fibrillation with RVR: Code(s): I48.91 - Unspecified atrial fibrillation Status: Acute (5) COVID-19: Code(s): U07.1 - COVID-19 Status: Acute (6) Hyponatremia: Code(s): E87.1 - Hypo-osmolality and hyponatremia Status: Acute DS: Summary Hospital Course Reason for hospitalization: Hyponatremia COVID-19 AFib with RVR Pyelonephritis Sepsis Severe sepsis Acute kidney injury Electrolyte abnormality Hospital Course: This is a 63-year-old female With history of bladder cancer status post cystoscopy who presented to the hospital on 11/05/2024 with generalized weakness which has been ongoing for the last 4 days. She was initially meeting sepsis criteria with elevated heart rate, low blood pressure, lactic acidosis, acute kidney injury. workup in the hospital included a chest x-ray which was negative. 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 Cervical spine CT was negative for fracture, showed severe cervical spondylosis. Thoracic CT was negative for fracture showed mild thoracic spondylosis. CT of the abdomen and pelvis and lumbar without contrast showed mild left hydroureter new from 06/28/2024, no urolithiasis, mild lumbar spondylosis. Renal ultrasound was negative for any renal mass, lesion, or hydronephrosis. she was initially admitted to the intensive care unit and received 3.5 L of IV fluids with improvement in her blood pressure and heart rate. EKG showed AFib with RVR with a rate of 104 QTC 478. initial labs revealed a white blood cell count of 18.8, hemoglobin 16.5, sodium 22, chloride 93, bicarb 17, creatinine 2.20, EGFR 23, lactic acid 3.6> 3.1> 1.3> 1.0, magnesium 1.5, troponin 0.045> 0.025, C reactive protein greater than 45. Random cortisol was 46.10. UA was obtained and showed turbid urine appearance, 3+ urine protein, 3+ urine blood, positive nitrate, 2+ leukocyte, greater than 100 urine RBC, greater than 100 urine WBC, 4+ urine bacteria. Respiratory panel was positive for COVID. Urine culture showing E coli on final read which was relatively pansensitive. Blood cultures on 11/04/2024 resulted with E coli. New blood cultures drawn on 11/06/2024 are showing no growth to date on preliminary read. Patient was started on a Cardizem drip while in the ICU however blood pressure started to drop and Cardizem was discontinued. She was started on a Levophed infusion while in the ICU and was weaned off when blood pressures improved.. Patient was also placed Rocephin and vancomycin. Vancomycin was deescalated. She was continued on dexamethasone 6 mg IV push Q 24 hours. She did not receive any Remdesivir. Nephrology was consulted for JAYLEN. Urology was also consulted considering the history of bladder cancer. Urology feels this is not an obstruction and that the pyelonephritis is due to an ascending urinary tract infection. Hurley catheter was discontinued as well as central line. Antibiotic was changed to po. She is tolerating well. She is also independent with PT and OT. She does not require any rehab placement. Her VSS, she is afebrile, currently on room air. Her labs were reviewed and WBC is slightly elevated likely due to steroid use which will be discontinued today. She is stable for discharge at this time and will need to follow up with her primary care doctor in 1 week. She was sent home with sodium tabs and magnesium which she will continue for the next week and then have a recheck of her labs. Final diagnosis: Severe sepsis, acute kidney injury, hypo natremia, hypomagnesemia, atrial fibrillation with RVR, acute pyelonephritis Status at Discharge Cognitive/behavioral status at discharge: Alert oriented x4 Functional status at discharge: independent ambulation Overall status at discharge: patient is progressing back to baseline Time Spent with Patient Time attestation: Total time spent providing and/or coordinating discharge services: Time spent: Greater than 30 minutes Exam Narrative: General: In no acute distress Cardiac: Normal S1 and S2. RRR, No murmur, gallops or friction rubs, peripheral pulses intact. Respiratory: Lungs clear to auscultation, no adventitious lung sounds, currently on room air Gastrointestinal: soft, non-distended, non-tender, normoactive bowel sounds. : voiding without difficulty. Neuro: Alert and oriented x4 DS: Data Data Completed and Pending Completed studies during hospitalization: Chest x-ray Thoracic spine CT Cervical spine CT Renal ultrasound Abdomen x-ray Pending studies at discharge: Blood culture showing no growth to date on preliminary read day 4/ Labs on day of discharge: Labs from last 24 hours 11/10/24 11/09/24 11/09/24 05:43 20:07 17:27 WBC 15.6 H RBC 4.61 Hgb 13.0 Hct 38.9 MCV 84.4 MCH 28.2 MCHC 33.4 RDW 13.2 Plt Count 202 MPV 11.3 H Immature Gran % (Auto) 1.6 H Neut % (Auto) 78.5 H Lymph % (Auto) 12.5 L Zapata % (Auto) 6.4 Eos % (Auto) 0.6 Baso % (Auto) 0.4 Lymph # (Auto) 1.95 Zapata # (Auto) 1.0 H Eos # (Auto) 0.1 Baso # (Auto) 0.1 Abs Immat Gran (auto) 0.25 H Absolute Neuts (auto) 12.3 H Absolute Nucleated RBC 0.000 Nucleated RBC % 0.0 Sodium 127 L Potassium 3.4 Chloride 99 Carbon Dioxide 24 Anion Gap 4 BUN 34 H Creatinine 0.90 Estim Creat Clear Calc 59 Estimated GFR > 60 Glucose 112 H POC Capillary Glucose 174 H 229 H Calcium 8.3 L Magnesium 1.5 L Total Bilirubin 1.8 H AST 23 ALT 29 Alkaline Phosphatase 76 Total Protein 7.0 Albumin 3.4 L 11/09/24 11/09/24 12:10 08:51 WBC RBC Hgb Hct MCV MCH MCHC RDW Plt Count MPV Immature Gran % (Auto) Neut % (Auto) Lymph % (Auto) Zapata % (Auto) Eos % (Auto) Baso % (Auto) Lymph # (Auto) Zapata # (Auto) Eos # (Auto) Baso # (Auto) Abs Immat Gran (auto) Absolute Neuts (auto) Absolute Nucleated RBC Nucleated RBC % Sodium Potassium Chloride Carbon Dioxide Anion Gap BUN Creatinine Estim Creat Clear Calc Estimated GFR Glucose POC Capillary Glucose 261 H 204 H Calcium Magnesium Total Bilirubin AST ALT Alkaline Phosphatase Total Protein Albumin Preliminary micro results at discharge 11/06/24 15:15 Blood Culture - Preliminary Blood 11/06/24 15:14 Blood Culture - Preliminary Blood Procedures/Treatments: None Discharge Plan Discharge Attending physician on discharge: Greg Porter Consulting providers: Orion Pandey; Jenna Varghese; Matti Burr Discharging Clinician: Taylor Talavera Anticipated Discharge Date/Time: 11/10/24 08:14 Patient Disposition: Home, Self-Care Activity: as tolerated Diet: as tolerated and heart healthy Discharge Instructions: * finish all your antibiotics as directed * Remember to change positions slowly especially when feeling dizzy * Stay hydrated and eat a healthy diet * Continue to take sodium tabs and Magnesium as you were low this hospitalization * Recheck labs in 1 week to check your Magnesium level and your sodium level. * Follow up with primary care doctor in 1 week Patient Instructions: Antibiotic Form Patient Language: Mexican Stand Alone Forms: General Discharge Information Follow-up/Referrals: Andrey,Matti Parson MD [Primary Care Provider] - 1 Week Discharge Medications: New nitrofurantoin monohyd/m-cryst [Macrobid] 100 mg Capsule 100 mg PO Q12HR Qty: 17 0RF magnesium oxide 400 mg (241.3 mg magnesium) Tablet 400 mg PO DAILY Qty: 7 0RF sodium chloride 1,000 mg Tablet,Soluble 1,000 mg PO BID Qty: 30 0RF ondansetron HCl 4 mg tablet 4 mg PO Q8H Qty: 10 0RF Continued (DME) Aerochamber MV Spacer See Rx Instructions .Route Qty: 1 0RF Rx Instructions: As directed albuterol sulfate 90 mcg/actuation HFA aerosol inhaler 2 puff inhalation QID PRN (Reason: shortness of breath or wheezing) Qty: 6.7 0RF cromolyn 4 % drops 1 drp EACH EYE DAILY Repatha SureClick 140 mg/mL pen injector 140 mg SUBCUT MONTHLY Zyrtec 1 tab-cap PO DAILY fluticasone propionate [Flonase] 50 mcg/actuation [place],Suspension 1 spray INTRANASAL DAILY ciprofloxacin HCl 0.3 % drops See Rx Instructions .Route .COMPLEX 7 Days Qty: 5 0RF Rx Instructions: Place 4 drops in left ear twice daily for 7 days clopidogrel 75 mg tablet 75 mg PO DAILY hydrocortisone 2.5 % cream with perineal applicator 1 applic RECTAL DAILY PRN (Reason: hemorrhoids) Qty: 30 0RF lorazepam 0.5 mg tablet 0.5 mg PO TID metformin 500 mg tablet 500 mg PO BID metoclopramide HCl [Reglan] 10 mg tablet 10 mg PO BID PRN (Reason: nausea and vomiting) Qty: 60 11RF trazodone 50 mg tablet 50 mg PO HS PRN (Reason: Insomnia) Eliquis 5 mg Tablet 5 mg PO Q12HR Qty: 60 2RF ezetimibe 10 mg tablet 10 mg PO DAILY losartan 100 mg tablet 100 mg PO DAILY ergocalciferol (vitamin D2) 1,250 mcg (50,000 unit) capsule 50,000 unit PO WEEKLY Rx Instructions: takes weekly on Wednesday cyclobenzaprine 10 mg tablet 10 mg PO PRN budesonide-formoterol [Symbicort] 160-4.5 mcg/actuation HFA aerosol inhaler See Rx Instructions .ROUTE .COMPLEX Rx Instructions: 2 puff inhaled AM AND HS hydrocodone-acetaminophen 5-325 mg Tablet 1 tablet PO Q8H PRN (Reason: Pain Rated 4-6) Qty: 15 0RF oxybutynin chloride 5 mg Tablet 5 mg PO TID Qty: 90 0RF sotalol 120 mg tablet 120 mg PO Q12H montelukast 10 mg tablet 10 mg PO QPM fluoxetine 40 mg capsule 40 mg PO QPM fenofibrate 120 mg tablet 120 mg PO DAILY albuterol sulfate 90 mcg/actuation HFA aerosol inhaler 2 puff INHALATION Q6H PRN (Reason: shortness of breath or wheezing) albuterol sulfate 2.5 mg /3 mL (0.083 %) solution for nebulization 2.5 mg inhalation Q6H PRN (Reason: shortness of breath or wheezing) dexlansoprazole 30 mg capsule,biphase delayed releas See Rx Instructions .ROUTE .COMPLEX Qty: 30 11RF Dose Instruction: TAKE 1 CAPSULE BY MOUTH DAILY Rx Instructions: TAKE 1 CAPSULE BY MOUTH DAILY Discontinued fluoxetine 60 mg tablet 20 mg PO DAILY sotalol 80 mg Tablet 80 mg PO Q12HR Qty: 60 0RF Eliquis 5 mg Tablet 5 mg PO Q12HR Qty: 60 0RF losartan 100 mg tablet 100 mg PO DAILY metformin 500 mg tablet 500 mg PO BID ezetimibe 10 mg tablet 10 mg PO DAILY clopidogrel 75 mg tablet 75 mg PO DAILY Eliquis 5 mg tablet 5 mg PO Q12H budesonide-formoterol [Symbicort] 160-4.5 mcg/actuation HFA aerosol inhaler 2 puff INHALATION Q12H Other Ambulatory Orders: Comprehensive Metabolic Panel (Routine) Timeframe: 1 Week Location: Determined by Patient Ordered By: Taylor Talavera Magnesium (Routine) Timeframe: 1 Week Location: Determined by Patient Ordered By: Taylor Talavera Date of admission: 11/06/24 12:33 Primary Care Provider: AlexMatti Admitting Provider: Marva Lei Attending physician on admission: Taylor Talavera Condition: Improved Quality VTE Prophylaxis VTE prophylaxis: pharmacologic ordered Hospitalist MIPS Heart Failure (Exclusion) Patient has history of Heart Transplant or Left Ventricular Assistive Device?: No IF YES, STOP HERE Heart Failure (Qualifier) Patient has current or prior documentation of LVEF less than or equal to 40%, or mod/servere depressed LVSF?: No IF NO, STOP HERE
[2024-11-10 08:16] LABS: Glucose Point of Care 151 mg/dl (65-105)
[2024-11-10] MEDS: EZETIMIBE 10 MG TABLET PO (09:08)
[2024-11-10] MEDS: CLOPIDOGREL BISULFATE 75 MG TABLET PO (09:08)
[2024-11-10] MEDS: APIXABAN 5 MG TABLET PO (09:08)
[2024-11-10] MEDS: PANTOPRAZOLE 40 MG TABLET PO (09:08)
[2024-11-10] MEDS: NITROFURANTOIN MONOHYD MACROCR 100 MG CAP PO (09:08)
[2024-11-10] MEDS: SOTALOL HCL 40 MG TABLET PO (09:08)
[2024-11-10] MEDS: LOSARTAN POTASSIUM 100 MG TABLET PO (09:08)
[2024-11-10] MEDS: dexAMETHasone 2 MG TABLET 6 MG PO (09:08)
[2024-11-10] MEDS: HYDROcodone/acetaminophen (*CRX) 5-325 MG TABLET 1 TAB PO (10:13)
[2024-11-10 11:50] LABS: Glucose Point of Care 203 mg/dl (65-105)
[2024-11-10] MEDS: INSULIN ASPART (*BKC) 100 UNITS/ML SUB-Q (12:12)
[2024-11-10] MEDS: SOTALOL HCL 80 MG TABLET PO (12:15)
[2024-11-10] MEDS: MAGNESIUM OXIDE 400 MG TABLET PO (15:34)
[2024-11-10] MEDS: SODIUM CHLORIDE 1 GM TABLET PO (15:34)
--- OUTSIDE RECORDS SUMMARY | 2024-11-12 04:41 | XMS_ITS | Encounter Summary ---
Author Organization [facility] Address [address] [place] [address] Care Team Providers Care Infusion Therapy Nurse Name Role Phone Deisi Andrews MD Primary Care Provider Encounter Details Date Type Department Care Team (Latest Contact Info) Description 09/15/2024 Travel Social History Tobacco Use Types Packs/Day Years Used Date Smoking Tobacco: Every Day Cigarettes 1 40 Smokeless Tobacco: Never Alcohol Use Standard Drinks/Week Comments No 0 (1 standard drink = 0.6 oz pur e alcohol) AUDIT-C Answer Date Recorded Q1: How often do you have a drink containing alcohol? Never 06/21/2024 Q2: How many drinks containi ng alcohol do you have on a typical day when you are drinking? Patient does not drink Q3: How often do you have si x or more drinks on one occasion? Never 06/21/2024 PHQ-2 Answer Date Recorded Patient Health Questionnaire-2 Score 0 06/19/2024 Sex and Gender Information Value Date Recorded Sex Assigned at Not on file Gender Identity Not on file Sexual Orientation Not on file documented as of this encounter Functional Status Functional Status Response Date of Assess ment Is person deaf or have serious hearing difficult y? No 06/21/2024 Is person blind or have serious difficulty seein g? No 06/21/2024 Does person have serious dif ficulty walking/climbing stairs? No 06/21/2024 Does person have difficulty dressing/bathing? No 06/21/2024 Does person have difficulty doing errands alone? No 06/21/2024 Cognitive Status Response Date of Assessm ent Does person have difficulty concentrating/remembering/making decisions? No 06/21/2024 documented as of this encounter Plan of Treatment Upcoming Encounters Date Type Department Care Team (Late st Contact Info) Description 01/19/2025 11:30 AM NETWORK DESIGN ARCHITECT Procedure visit [facility] [address] [place] [address] Jose Oliver MD [address] [facility] [facility] [facility] [place] [place] [address] documented as of this encounter Goals Goal Patient Goal Type Associated Problems Recent Progress Patient-Stated? Author Medication Management General On track( 021 1:21 PM CDT) Tamiko Torres, RN Note: Expected end date: ongoing Interventions: Take all medications as prescribed Let your doctor know right away about any changes in your medications Make sure to request a refill of your medication at least one week prior to your last dose documented as of this encounter Visit Diagnoses Not on filedocumented in this encounter Care Teams Infusion Therapy Nurse Relationship Specialty Start Date End Date Deisi Andrews MD [address] [place] [address] [place] [address] PCP - General Family Medicine 05/26/23 10/26/24 documented as of this encounter
--- OUTSIDE RECORDS SUMMARY | 2024-11-12 04:41 | XMS_ITS | Encounter Summary ---
Author Organization [facility] Address [address] [facility] [address] Care Team Providers Care Pipe Welder Name Role Phone Deisi Andrews MD Primary Care Provider [phone] Encounter Details Date Type Department Care Team (Late st Contact Info) Description 08/18/2024 11:00 AM CDT Clinical Support [facility] - [facility]rology [address] [place] [address] [address] [place] [address] Jose Oliver MD [address] [place] [id number] Malignant neoplasm of urinary bladder, unspecified site (HCC) Social History Tobacco Use Types Packs/Day Years [...] on file documented as of this encounter Last Filed Vital Signs Vital Sign Reading Time Taken Comments Blood Pressure 105/72 08/18/2024 11:32 AM CDT Pulse 78 08/18/2024 11:32 AM CDT Temperature 36.5 ??C (97.7 ??F) 08/18/2024 11:32 AM C DT Respiratory Rate 16 08/18/2024 11:32 AM CDT Oxygen Saturation 93% 08/18/2024 11:32 AM CDT Inhaled Oxygen Concentration - - Weight 83.6 kg (184 lb 3.2 oz) 08/18/2024 11:32 AM CDT Height - - Body Mass Index 32.63 08/11/2024 11:17 AM CDT documented in this encounter Functional Status Functional Status Response [...] No 06/21/2024 documented as of this encounter Progress Notes * Katelynn Hassan LPN - 08/18/2024 2:09 PM CDT Patient present for BCG instillation, patient tolerated procedure well, no signs or symptons of distress observed. Associated attestation - Jose Oliver MD - 08/18/2024 3:07 PM CDT I was present in office for BCG administration, #3 of 6 documented in this encounter Plan of Treatment Upcoming Encounters Date Type Department Care Team (Late st Contact Info) Description 01/19/2025 11:30 AM STARTER CUP POWDER MIXER Procedure visit [facility] Urology [address] [place] [address] [address] [place] [address] Jose Oliver MD [address] [place] [address] documented as of this encounter Goals Goal [...] last dose documented as of this encounter Procedures Procedure Name Priority Date/Time Associated Diagnosis Comments URINALYSIS AUTO - POINT OF CARE (AMB) [facility] Routine 08/18/2024 2:07 PM CDT Malignant neoplasm of urinary bladder, unspecified site (HCC) documented in this encounter Results * URINALYSIS AUTO - POINT OF CARE (AMB) [facility] (08/18/2024 2:07 PM CDT) Glucose UA neg [facility] [address] Bilirubin UA POCT neg [facility] [address] Ketones UA POCT neg [facility] [address] Specific [place] UA 1.[address] [facility] [address] Blood Urine POCT neg [facility] [address] pH UA 6.0 [facility] [address] Protein UA 1+ 0.3 [facility] [address] Urobilinogen UA - 3.5 [facility] [address] Nitrite UA neg [facility] [address] WBC UA 1+ [address] [facility] [address] Urine URINE / Unknown 08/18/2024 2 :07 PM CDT Jose Oliver MD LAB - POINT OF CAR E ORDERABLES [facility] [address] [place] [address], [facility] [phone] documented in this encounter Visit Diagnoses Diagnosis Malignant neoplasm of urinary bladder, unspecified site (HCC)- Primary documented in this encounter Administered Medications Inactive Administered Medications - up to 3 most recent administrations Medication Order MAR Action Action Date Dose Rate Site bcg live ([place] Bcg) injection 25 mL 25 mL, Bladder Instillation, ONCE, 1 dose, On Wed08/18/24 at 1445, For bladder irrigation, dose should be retained for 2 hours (patient should reposition every 15 mintues), then voided, during the first 24 hours after instillation, patient should sit while voiding $ Given 08/18/2024 2:18 PM CDT 25 mL documented in this encounter Care Teams Pipe Welder Relationship Specialty Start Date End Date Deisi Andrews MD [address] [place] [address] PCP - General Family Medicine 05/26/23 10/26/24 documented as of this encounter
--- OUTSIDE RECORDS SUMMARY | 2024-11-12 04:41 | XMS_ITS | Encounter Summary ---
Author Organization [facility] Address [address] [place] [address] Care Team Providers Care Filter Tank Operator Name Role Phone Deisi Andrews MD Primary Care Provider [phone] Reason for Visit * Reason Comments Follow-up bcg Encounter Details Date Type Department Care Team ([facility] Contact Info) Description 08/25/2024 11:00 AM CDT Clinical Support [facility] [address] [place] [address] [address] [place] [phone] Jose Oliver MD [address] [place] [phone] Malignant neoplasm of urinary bladder, unspecified site [...] Sign Reading Time Taken Comments Blood Pressure 139/89 08/25/2024 11:54 AM CDT Pulse 76 08/25/2024 11:54 AM CDT Temperature 35.9 ??C (96.7 ??F) 08/25/2024 11:54 AM C DT Respiratory Rate 16 08/25/2024 11:54 AM CDT Oxygen Saturation 95% 08/25/2024 11:54 AM CDT Inhaled Oxygen Concentration - - Weight 83.6 kg (184 lb 3.2 oz) 08/25/2024 11:54 AM CDT Height 160 cm (5' 3 ) 08/25/2024 11:54 AM CDT Body Mass Index 32.63 08/25/2024 11:54 AM CDT documented in this encounter Functional [...] as of this encounter Progress Notes * Jose Oliver MD - 08/25/2024 3:14 PM CDT I was present in office for BCG administration, #4 of 6 documented in this encounter Procedure Notes * Katelynn Hassan LPN - 08/25/2024 11:54 AM CDT Patient present for 4th BCG instillation, patient tolerated procedure well, no signs or symptons ofdistress observed. documented in this encounter Plan of Treatment Upcoming Encounters Date Type Department Care Team (Late st Contact Info) Description 01/19/2025 11:30 AM SWEATBAND SHAPER Procedure visit [facility] Urology [address] [place] [address] Jose Oliver MD [address] [place] [address] documented as of this encounter Goals Goal [...] documented as of this encounter Visit Diagnoses Diagnosis Malignant neoplasm of urinary bladder, unspecified site (HCC)- Primary documented in this encounter Administered Medications Inactive Administered Medications - up to 3 most recent administrations Medication Order MAR Action Action Date Dose Rate Site bcg live ([place] Bcg) injection 25 mg 25 mg, Bladder Instillation, ONCE, 1 dose, On Wed08/25/24 at 1215, For bladder irrigation, dose should be retained for 2 hours (patient should reposition every 15 mintues), then voided, during the first 24 hours after instillation, patient should sit while voiding $ Given 08/25/2024 11:52 AM CDT 25 mg Bladder Wall documented in this encounter Care Teams Filter Tank Operator Relationship Specialty Start Date End Date Deisi Andrews MD [address] [place] [address] [place] [address] PCP - General Family Medicine 05/26/23 10/26/24 documented as of this encounter
--- OUTSIDE RECORDS SUMMARY | 2024-11-12 04:41 | XMS_ITS | Encounter Summary ---
Author Organization [facility] Address [address] [place] [address] Care Team Providers Care Compensation Consulting Manager Name Role Phone Deisi Andrews MD Primary Care Provider [phone] Encounter Details Date Type Department Care Team (Latest Contact Info) Description 09/13/2024 Travel Social History Tobacco Use Types Packs/Day [...] st Contact Info) Description 01/19/2025 11:30 AM WEIGH AND CHARGE WORKER Procedure visit [facility] [address] [facility] [address] [place] [address] Jose Oliver MD [address] [facility] [address] [facility] [place] [address] documented as of this encounter Goals Goal [...] on filedocumented in this encounter Care Teams Compensation Consulting Manager Relationship Specialty Start Date End Date Deisi Andrews MD [address] [place] [address] [place] [address] PCP - General Family Medicine 05/26/23 10/26/24 documented as of this encounter
--- OUTSIDE RECORDS SUMMARY | 2024-11-12 04:41 | XMS_ITS | Encounter Summary ---
Author Organization [facility] Address [address] [place] [address] Care Team Providers Care Property Officer Name Role Phone Deisi Andrews MD Primary Care Provider [phone] Encounter Details Date Type Department Care Team (Latest Contact Info) Description 09/08/2024 Travel Social History Tobacco Use Types Packs/Day [...] st Contact Info) Description 01/19/2025 11:30 AM PARTS ROOM ASSOCIATE Procedure visit [facility] [address] [facility] [address] [facility] [address] [place] [address] Jose Oliver MD [address] [facility] [address] [facility] [place] [address] documented as of this encounter Goals Goal [...] on filedocumented in this encounter Care Teams Property Officer Relationship Specialty Start Date End Date Deisi Andrews MD [address] [place] [address] [place] [address] PCP - General Family Medicine 05/26/23 10/26/24 documented as of this encounter
--- OUTSIDE RECORDS SUMMARY | 2024-11-12 04:41 | XMS_ITS | Encounter Summary ---
Author Organization [facility] Health Address [address] [facility] [address] Care Team Providers Care Marine Electrician Name Role Phone Deisi Andrews MD Primary Care Provider [phone] Reason for Visit * Reason Comments Establish Care [facility] Encounter Details Date Type Department Care Team ([facility] Contact Info) Description 09/15/2024 11:30 AM CDT Clinical Support [facility] - Urology [address] [place] [address] [address] [place] [phone] Jose Oliver MD [address] [place] [phone] Malignant neoplasm of urinary bladder, unspecified site [...] Sign Reading Time Taken Comments Blood Pressure 133/84 09/15/2024 11:54 AM CDT Pulse 82 09/15/2024 11:54 AM CDT Temperature 36.6 ??C (97.8 ??F) 09/15/2024 11:54 AM C DT Respiratory Rate - - Oxygen Saturation 98% 09/15/2024 11:54 AM CDT Inhaled Oxygen Concentration - - Weight 83 kg (183 lb) 09/15/2024 11:54 AM CDT Height 160 cm (5' 3 ) 09/15/2024 11:54 AM CDT Body Mass Index 32.42 09/15/2024 11:54 AM CDT documented in this encounter [...] Progress Notes * Jose Oliver MD - 09/15/2024 6:22 PM CDT I was present in office for BCG administration. documented in this encounter Procedure Notes * Murray Richard LPN - 09/15/2024 12:32 PM CDT Patient presented to office for BCG #6 of 6. 14fr straight catheter placed in a sterile fashion andbladder emptied. 50mg of BCG instilled through straight catheter, patient tolerated well. Patient education provided, and all questions answered. Education provided, understanding verbalized. Patientto follow up in 6 weeks with a cystoscopy per . documented in this encounter Plan of Treatment Upcoming Encounters Date Type Department Care Team (Late st Contact Info) Description 01/19/2025 11:30 AM YARDER ENGINEER Procedure visit [facility] - Urology [address] [place] [address] Jose Oliver MD [address] [place] [phone] documented as of this encounter Goals Goal Patient Goal Type Associated Problems Recent Progress Patient-Stated? Author Medication Management General On track( 021 1:21 PM CDT) Tamiko Torres, ADONAY Note: Expected end date: ongoing Interventions: Take all medications as prescribed Let your doctor know right away about any changes in your medications Make sure to request a refill of your medication at least one week prior to your last dose documented as of this encounter Procedures Procedure Name Priority Date/Time Associated Diagnosis Comments URINALYSIS AUTO - POINT OF CARE (AMB) [facility] Routine 09/15/2024 12:30 PM CDT Malignant neoplasm of urinary bladder, unspecified site (HCC) documented in this encounter Results * URINALYSIS AUTO - POINT OF CARE (AMB) [facility] (09/15/2024 12:30 PM CDT) Glucose UA - [facility] [address] Bilirubin UA POCT -- [facility] [address] Ketones UA POCT - [facility] [address] Specific [place] UA 1.[address] [facility] [address] Blood Urine POCT +- [facility] [address] pH UA 1.[address] [facility] [address] Protein UA 1+ [facility] [address] Urobilinogen UA - [facility] [address] Nitrite UA - [facility] [address] WBC UA +- [facility] [address] Urine URINE / Unknown 09/15/2024 1 2:30 PM CDT Jose Oliver MD LAB - POINT OF CAR E ORDERABLES [place] [address], [facility] [phone] documented in this encounter Visit Diagnoses Diagnosis Malignant neoplasm of urinary bladder, unspecified site (HCC)- Primary documented in this encounter Administered Medications Inactive Administered Medications - up to 3 most recent administrations Medication Order MAR Action Action Date Dose Rate Site bcg live ([place] Bcg) injection 50 mg 50 mg, Bladder Instillation, ONCE, 1 dose, On Wed09/15/24 at 1245, For bladder irrigation, dose should be retained for 2 hours (patient should reposition every 15 mintues), then voided, during the first 24 hours after instillation, patient should sit while voiding $ Given 09/15/2024 12:34 PM CDT 50 mg documented in this encounter Care Teams Marine Electrician Relationship Specialty Start Date End Date Deisi Andrews MD [address] [place] [address] [place] [phone] PCP - General Family Medicine 05/26/23 10/26/24 documented as of this encounter
--- OUTSIDE RECORDS SUMMARY | 2024-11-12 04:41 | XMS_ITS | Encounter Summary ---
Author Organization [facility] Address [address] [facility] [place] [address] Care Team Providers Care Animal Health Technician Name Role Phone Deisi Andrews MD Primary Care Provider [phone] Encounter Details Date Type Department Care Team (Late st Contact Info) Description 09/08/2024 Orders Only [facility]rology [address] [place] [address] [address] [place] [address] Melissa Rolon T, [employer] TRUCK [employer]IVER-SIGN WIRER [address] [facility] [place] [address] Social History Tobacco Use Types Packs/Day Years [...] st Contact Info) Description 01/19/2025 11:30 AM TENTER FEEDER Procedure visit [facility] [address] [place] [address] [address] [place] [phone] Jose Oliver MD [address] [phone] documented as of this encounter Goals Goal Patient Goal Type Associated Problems Recent Progress Patient-Stated? Author Medication Management General On track( 021 1:21 PM CDT) No Tamiko Mayorga RN Note: Expected end date: ongoing Interventions: Take all medications as prescribed Let your doctor know right away about any changes in your medications Make sure to request a refill of your medication at least one week prior to your last dose documented as of this encounter Procedures Procedure Name Priority Date/Time Associated Diagnosis Comments CULTURE URINE 09/08/2024 documented in this encounter Results * CULTURE URINE (09/08/2024) Culture [facility] Comment: ??CULTURE, URINE, ROUTINE ?Micro Number: ?[id number] ??Test Status: ? Final ??Specimen Source: ?? Urine ??Specimen Quality: ??Adequate ??Result: ?Mixed genital unruly isolated. These superficial ? bacteria are not indicative of a urinary tract ? infection. No further organism identification is ? warranted on this specimen. If clinically ? indicated, recollect clean-catch, mid-stream ? urine and transfer immediately to Urine Culture ? Transport Tube. Test Performed at: [facility] ??[id number] GISELE JUSTICE MD 09/08/2024 09/09/2024 1:3 2 AM CDT Melissa Rolon [employer]-SIGN W[employer]ER LAB - MICROBIOL OGY ORDERABLES Performing Organization Address City/State/[facility] Co de Phone Number [address] [address] documented in this encounter Visit Diagnoses Not on filedocumented in this encounter Care Teams Animal Health Technician Relationship Specialty Start Date End Date Deisi Andrews MD [address] [place] [address] DANNIE Rodríguez [phone] PCP - General Family Medicine 05/26/23 10/26/24 documented as of this encounter
--- OUTSIDE RECORDS SUMMARY | 2024-11-12 04:41 | XMS_ITS | Encounter Summary ---
Author Organization [facility] Address [address] [place] [address] Care Team Providers Care Marble Coper Name Role Phone Deisi Andrews MD Primary Care Provider [phone] Encounter Details Date Type Department Care Team (Latest Contact Info) Description 09/19/2024 Travel Social History Tobacco Use Types Packs/Day [...] Answer Date Recorded Patient Health Questionnaire-2 Score 4 09/19/2024 Sex and Gender Information Value Date Recorded [...] st Contact Info) Description 01/19/2025 11:30 AM MAIL SORTER Procedure visit [facility] [address] [facility] [address] [place] [address] Jose Oliver MD [address] [facility] [address] [facility] [place] [address] documented as of this encounter Goals Goal [...] on filedocumented in this encounter Care Teams Marble Coper Relationship Specialty Start Date End Date Deisi Andrews MD [address] [place] [address] [place] [address] PCP - General Family Medicine 05/26/23 10/26/24 documented as of this encounter
--- OUTSIDE RECORDS SUMMARY | 2024-11-12 04:41 | XMS_ITS | Encounter Summary ---
Author Organization [facility] Health Address [address] [place] [address] Care Team Providers Care Veterans Employment Representative Name Role Phone Matti Balderas MD Primary Care Provider [phone] Encounter Details Date Type Department Care Team (Latest Contact Info) Description 10/27/2024 Travel Social History Tobacco Use Types Packs/Day [...] st Contact Info) Description 01/19/2025 11:30 AM AUTOMOTIVE ALIGNMENT SPECIALIST Procedure visit [facility] [address] [facility] [address] [place] [address] Jose Oliver MD [address] [facility] [place] [phone] documented as of this encounter Goals Goal [...] on filedocumented in this encounter Care Teams Veterans Employment Representative Relationship Specialty Start Date End Date Matti Balderas MD [address] [place] [address] [address] [place] [address] PCP - General Family Medicine 10/27/24 documented as of this encounter
--- OUTSIDE RECORDS SUMMARY | 2024-11-12 04:41 | XMS_ITS | Referral Summary ---
Author Organization [facility] [employer] Address [address] [facility] [place] [address] Care Team Providers Care Bonbon Dipper Name Role Phone Matti Balderas MD Primary Care Provider Source Comments [facility],non-owned Affiliates and Associated Physician Practices is amultiple site organization consisting of ambulatory clinics and hospital sitesin [place], [place], [place] and [place]. This disclosure is being madepursuant to the Care Everywhere program and may not contain all information available regarding this patient. Last updated 18.[facility] [employer] Encounters Date Type Department Care Team Description 10/27/2024 Travel 10/27/2024 1:30 PM RUNNING RIGGER Procedure visit [facility] - Urology [address] [place] [address] Rd [address] [place] [address] Jose Oliver MD Malignant neoplasm of urinary bladder, unspecified site (HCC) 09/19/2024 Travel 09/15/2024 Travel 09/15/2024 11:30 AM CDT Clinical Support [facility] - Urology [address] [place] [address] Jose Oliver MD Malignant neoplasm of urinary bladder, unspecified site (HCC) 09/13/2024 Travel 09/13/2024 Telephone [facility] - Centralized Scheduling [address] [place] [phone] Jose Oliver MD Med Question; Appointment 09/11/2024 Travel 09/08/2024 Orders Only [facility] Physician [facility] - Urology [address] [place] [address] [address] [place] [address] Melissa Rolon APRN-SONNY 09/08/2024 Travel 09/08/2024 10:30 AM CDT Clinical Support [facility] Physician [facility] - Urology [address] [place] [address] [address] [place] [address] Melissa Rolon, MEI-LEAD TRAINER Asymptomatic microscopic hematuria 09/01/2024 Travel 09/01/2024 11:00 AM CDT Clinical Support [facility] Physician [facility] - Urology [address] [place] [address] [address] [place] [address] Jose Oliver MD Malignant neoplasm of urinary bladder, unspecified site (HCC) ; Bladder spasms; Urinary frequency 08/25/2024 Travel 08/25/2024 11:00 AM CDT Clinical Support [facility] Physician [facility] - Urology [address] [place] [address] [address] [place] [address] Jose Oliver MD Malignant neoplasm of urinary bladder, unspecified site (HCC) 08/18/2024 Travel 08/18/2024 11:00 AM CDT Clinical Support [facility] Physician [facility] - Urology [address] [place] [address] [address] [place] [address] Jose Oliver MD Malignant neoplasm of urinary bladder, unspecified site (HCC) from Last 3 Months Allergies Active Allergy Reactions Criticality Noted Date Comments Bee Venom Swelling Medium 04/13/2023 Codeine Itching 09/04/2020 Haloperidol Other Low 04/12/2015 unknown Risperidone Other 08/05/2018 Reported her face getting swollen Hmg-Coa-R Inhibitors Other 09/01/2021 Causes muscle tightness Triazolam Unknown 07/30/2021 Medications * Be aware that medications may not be up to date on this document. Alwaysverify current medications with the patient. Medication Sig Dispensed Refills Start Date End Date Status metFORMIN (GLUCOPHAGE) 500 MG tablet Take 1 (one) tablet by mouth 2 times daily with morning and evening meal 12/27/2016 Active vitamin D, ergocalciferol, (DRISDOL) 80892 UNITS capsule Take 1 (one) capsule by mouth every 7 days 01/29/2019 Active cromolyn (CROLOM) 4 % ophthalmic solution Instill 1 drop into both eyes 3 times daily 10 mL 4 06/12/2020 Active EPINEPHrine (EPIPEN) 0.3 MG/0.3ML auto-injector pen epinephrine 0.3 mg/0.3 mL injection, auto-injector Active albuterol (PROVENTIL;VENTOLIN) (2.5 MG/3ML) 0.083% nebulizer solution Inhale 2.5 (two and one-half) mg by mouth every 4 hours as needed for Shortness of Breath 75 mL 11/03/2021 Active Additional Information Patient not taking.Reported on 11/22/2023 clopidogrel (PLAVIX) 75 MG tablet Take 1 (one) tablet by mouth once daily 90 tablet 12/08/2021 Active ezetimibe (ZETIA) 10 MG tablet Take 1 (one) tablet by mouth once daily 90 tablet 4 12/08/2021 Active losartan (COZAAR) 100 MG tablet Take 1 (one) tablet by mouth once daily 90 tablet 4 12/08/2021 Active nitroGLYCERIN (NITROSTAT) 0.4 MG tablet Dissolve 1 (one) tablet under the tongue every 5 minutes as needed for Angina 100 tablet 4 12/08/2021 Active Additional Information Patient not taking.Reported on 01/06/2024 albuterol HFA (PROAIR HFA) 108 (90 Base) MCG/ACT inhalerIndications:S tage 2 moderate COPD by GOLD classification ([facility]) Inhale 2 (two) puffs by mouth every 4 hours as needed 8.5 g 11 01/05/2022 Active cetirizine (ZYRTEC) 10 MG tablet cetirizine 10 mg tablet TAKE 1 TABLET BY MOUTH ONCE DAILY NEEDED Active ibuprofen (MOTRIN) 600 MG tablet Take 1 (one) tablet by mouth every 6 hours as needed (for post operative pain) 30 tablet 03/23/2022 Active Additional Information Patient not taking.Reported on 06/15/2024 evolocumab (REPATHA SURECLICK) 140 MG/ML auto-injector INJECT 1 PEN UNDER THE SKIN EVERY 14 DAYS 6 mL 4 05/29/2022 Active cyclobenzaprine (Flexeril) 10 MG tablet 1 po tid prn Active fluticasone propionate (Flonase) 50 MCG/ACT nasal spray USE 1 SPRAY(S) IN EACH NOSTRIL ONCE DAILY Active metoclopramide (Reglan) 5 MG tablet Take 1 (one) tablet by mouth every 6 hours as needed Active Eliquis 5 MG tablet Take 1 (one) tablet by mouth every 12 hours 11/02/2023 Active sotalol (Betapace) 80 MG tablet Take 1.5 (one and one-half) tablets by mouth every 12 hours 10/28/2023 Active multivitamin daily tablet Take 1 (one) tablet by mouth daily with food Active ascorbic acid (Vitamin C) 500 MG tablet Take 1 (one) tablet by mouth once daily Active hyoscyamine (Levsin) 0.125 MG IR tablet TAKE 1 TABLET BY MOUTH EVERY 4 HOURS NEEDED FOR SPASMS 30 tablet 11/30/2023 Active Additional Information Patient not taking.Reported on 06/15/2024 ondansetron, disintegrating, (Zofran ODT) 8 MG tablet 01/09/2024 Active dexlansoprazole (Dexilant) 30 MG capsule Take 1 (one) capsule by mouth once daily Active nicotine (Nicoderm CQ) 21 MG/24HR patchIndications:MDD (recurrent major depressive disorder) in remission (HCC) Apply 1 (one) patch to skin once daily 30 patch 2 06/19/2024 Active nicotine (Nicotrol) 10 MG inhalerIndications:M DD (recurrent major depressive disorder) in remission ([facility]) Inhale 10 mg by mouth as needed for Smoking Cessation 168 Each 2 06/19/2024 Active acetaminophen (Tylenol) 325 MG tablet Take 2 (two) tablets by mouth every 6 hours as needed for Fever or Pain Maximum allowable Acetaminophen amount = 4 Grams (4000 mg) / 24 hours. 06/21/2024 Active oxyBUTYnin CR 24hr (Ditropan XL) 15 MG tabletIndications:Ma lignant neoplasm of urinary bladder, unspecified site (HCC),Bladder spasms,Urinary frequency Take 1 (one) tablet by mouth once daily 90 tablet 4 09/01/2024 Active fenofibrate (Fenoglide) 120 MG Take 1 (one) tablet by mouth once daily 08/29/2024 Active LORazepam (Ativan) 0.5 MG tablet Take 1 (one) tablet by mouth 3 times daily as needed for Anxiety 90 tablet 2 09/19/2024 Active FLUoxetine (PROzac) 40 MG capsule Take 1 (one) capsule by mouth once daily 30 capsule 2 09/19/2024 Active Active Problems Problem Noted Date Diagnosed Date CAD in gambell artery 10/24/2020 MDD (recurrent major depressive disorder) in rem ission 08/05/2018 GIOVANNY (generalized anxiety disorder) 06/09/2017 Overview (02/14/2018): ICD-10 update Obesity 01/09/2017 Nocturia 01/09/2017 Personal history of transien t ischemic attack (TIA), and cerebral infarction without residual deficits 01/09/2017 Overview (02/14/2018): reported Occlusion and stenosis of bilateral carotid thomas nguyen 01/09/2017 Chronic pain syndrome 01/09/2017 Type 2 diabetes mellitus with diabetic polyneuro charlene 01/09/2017 Overview (02/14/2018): EMG/NCV [facility] Insomnia due to medical condition 01/09/2017 Gastro-esophageal reflux disease without esophag itis 01/09/2017 Primary osteoarthritis of one knee 01/09/2017 Other asthma 01/09/2017 Sleep related leg cramps 01/09/2017 Other forms of angina pectoris 01/09/2017 Essential (primary) hypertension 01/09/2017 Hypersomnia due to medical condition 01/09/2017 Chronic obstructive pulmonary disease 01/09/2017 Personal history of traumatic brain injury 01/09 Overview (02/14/2018): Reports brief LOC. Age 17. Restless legs syndrome 01/01/2017 Obstructive sleep apnea 01/01/2017 Cervicalgia 04/28/2015 Other chronic pain 04/28/2015 PAD (peripheral artery disease) Resolved Problems Problem Noted Date Diagnosed Date Resolved Date Type 2 diabetes mellitus wit hout complications 01/09/2017 02/22/2019 Other sleep disorders 01/09/20172018 Overview (02/14/2018): The night-eating syndrome is distinct from the sleep-related eating disorder, which is similar to sleep walking and is characterized by frequent episodes of nocturnal eating, without conscious awareness, and is usually not associated with eating disorders during wake. Major depressive disorder, single episode 10/14/2016 05/10/2018 Immunizations Name Administration Dates Next Due INFLUENZA VACCINE, TRIV. (AF LURIA, FLUZONE TRIVALENT; 6MO+) (IIV3) 12/16/2015 Covid Pfizer primary monoval ent 12+ yr 0.3mL Purple cap 03/13/2021,02/17/2021 FLU VACCINE QUAD IIV4 SPLIT 0.25 ML IM 08/28/2020 INFLUENZA 08/28/2020 INFLUENZA VACCINE, QUADR. (F LUZONE; FLULAVAL; FLUARIX; AFLURIA QUADRIVALENT; 6MO+), 0.5 ML (IIV4) 09/22/2019,07/27/2018,08/26/2017,2015,07/30/2015 PNEUMOCOCCAL PPSV23 10/21/2016 Pneumococcal Pcv13 Conj 07/23/2016,12/16/2015 TDAP (7yrs+) 05/27/2021,01/31/2019 iNFLUENZA VACCINE, RECOM-MIRANDA, QUADR. (FLUBLOCK QUADRIVALENT; 18Y+) (RIV4) 01/05/2022 Social History Tobacco Use Types Packs/Day Years Used Date Smoking Tobacco: Every Day Cigarettes 1 40 Smokeless Tobacco: Never Tobacco Cessation:Ready to Q uit: Not Asked; Counseling Given: Not Answered Alcohol Use Standard Drinks/Week Comments No 0 [...] on file Sexual Orientation Not on file Last Filed Vital Signs Vital Sign Reading Time Taken Comments Blood Pressure 84/54 10/27/2024 2:11 PM RUNNING RIGGER Pulse 78 10/27/2024 2:11 PM RUNNING RIGGER Temperature 36.2 ??C (97.2 ??F) 10/27/2024 2:11 PM CS T Respiratory Rate 18 10/27/2024 2:11 PM RUNNING RIGGER Oxygen Saturation 96% 10/27/2024 2:11 PM RUNNING RIGGER Inhaled Oxygen Concentration 21% 06/21/2024 8 :20 AM CDT Weight 83.9 kg (185 lb) 09/19/2024 9:51 AM RUNNING RIGGER Height 160 cm (5' 3 ) 10/27/2024 2:11 PM RUNNING RIGGER Body Mass Index 32.77 09/15/2024 11:54 AM CDT Functional Status Functional Status Response Date of [...] person have difficulty concentrating/remembering/making decisions? No 06/21/2024 Plan of Treatment Upcoming Encounters Date Type Department Care Team (Late st Contact Info) Description 01/19/2025 11:30 AM RUNNING RIGGER Procedure visit [facility] - Urology [address] [place] [address] [address] [place] [address] Jose Oliver MD [address] [place] [address] Goals Goal Patient Goal Type Associated Problems Recent Progress Patient-Stated? Author Medication Management General On track( 021 1:21 PM CDT) No Tamiko Mayorga, RN Note: Expected end date: ongoing Interventions: Take all medications as prescribed Let your doctor know right away about any changes in your medications Make sure to request a refill of your medication at least one week prior to your last dose Medical Devices Implanted Type Area Cota Device Identifier Shelf Expiration Date Model / Serial / Lot Stent Trchbr 10mm 7fr 38mm 80cm Cvr Cath Implanted:Qty: 1 on 09/04/2020 by Jose A Clark MD at [facility] N/A: Abdomen [employer] 04/05/2023 [id number] / / [id number] Stent Trchbr 8mm 7fr 38mm 80cm Cvr Cath Implanted:Qty: 1 on 09/04/2020 by Jose A Clark MD at [facility] N/A: Abdomen [employer] 05/22/2023 [id number] / / [id number] Procedures Procedure Name Priority Date/Time Associated Diagnosis Comments URINALYSIS AUTO - POINT OF CARE (AMB) [facility] Routine 10/27/2024 2:13 PM RUNNING RIGGER Malignant neoplasm of urinary bladder, unspecified site (HCC) URINALYSIS AUTO - POINT OF CARE (AMB) [facility] Routine 09/15/2024 12:30 PM CDT Malignant neoplasm of urinary bladder, unspecified site (HCC) URINALYSIS AUTO - POINT OF CARE (AMB) [facility] Routine 09/08/2024 Asymptomatic microscopic hematuria CULTURE URINE 09/08/2024 URINALYSIS AUTO - POINT OF CARE (AMB) [facility] Routine 09/01/2024 Malignant neoplasm of urinary bladder, unspecified site (HCC) URINALYSIS AUTO - POINT OF CARE (AMB) [facility] Routine 08/18/2024 2:07 PM CDT Malignant neoplasm of urinary bladder, unspecified site (HCC) BASIC METABOLIC PANEL (CALCIUM TOTAL) STAT 06/28/2024 3:17 PM CDT HEMOGLOBIN A1C Routine 11/22/2023 10:36 AM RUNNING RIGGER Pre-op exam from Last 3 Months or Most Recently Relevant to Health Maintenance Results * URINALYSIS AUTO - POINT OF CARE (AMB) [facility] (10/27/2024 2:13 PM RUNNING RIGGER) Only the most recent of5 resultswithin the time period is included. Glucose UA neg [facility] [address] Bilirubin UA POCT neg [facility] [address] Ketones UA POCT neg [facility] [address] Specific [place] UA 1.[address] [facility] [address] Blood Urine POCT neg [facility] [address] pH UA 5.5 [facility] [address] Protein UA neg [facility] [address] Urobilinogen UA 0.2 [facility] [address] Nitrite UA neg [facility] [address] WBC UA neg [facility] [address] Urine URINE / Unknown 10/27/2024 2 :13 PM RUNNING RIGGER Jose Oliver MD LAB - POINT OF CAR E ORDERABLES [facility] [address] [place] [address], [facility] [phone] * CULTURE URINE (09/08/2024) Pathologist [facility] Culture [facility] Comment: ??CULTURE, URINE, ROUTINE ?Micro Number: ?[id number] ??Test Status: ? Final ??Specimen Source: ?? Urine ??Specimen Quality: ??Adequate ??Result: ?Mixed genital unruly isolated. These superficial ? bacteria are not indicative of a urinary tract ? infection. No further organism identification is ? warranted on this specimen. If clinically ? indicated, recollect clean-catch, mid-stream ? urine and transfer immediately to Urine Culture ? Transport Tube. Test Performed at: [facility] ??[id number] GISELE JUSTICE MD 09/08/2024 09/09/2024 1:3 2 AM CDT Melissadebbie Rolon MORTGAGE LENDER-LEAD TRAINER LAB - MICROBIOL OGY ORDERABLES [facility] [id number] [address] [address] * BASIC METABOLIC PANEL (CALCIUM TOTAL) (06/28/2024 3:17 PM CDT) BUN 15 7 - 26 mg/dL 06/28/2024 3:51 PM [facility] Creatinine 0.69 0.56 - 0.96 mg/dL 06/28/2024 3:51 PM [facility] Sodium 138 136 - 145 mmol/L 06/28/2024 3:51 PM [facility] Potassium 4.0 3.5 - 4.5 mmol/L 06/28/2024 3:51 PM [facility] Chloride 103 98 - 107 mmol/L 06/28/2024 3:51 PM [facility] CO2 26 22 - 29 mmol/L 06/28/2024 3:51 PM [facility] Glucose 102 70 - 115 mg/dL 06/28/2024 3:51 PM [facility] Calcium 9.4 8.4 - 10.2 mg/dL 06/28/2024 3:51 PM [facility] Anion Gap 9 6 - 16 06/28/2024 3:51 PM [facility] BUN/Creatinine Ratio 22 7 - 23 06/28/2024 3:51 PM [facility] Osmolality Calculated 287 275 - 295 mOsm/kg 06/28/2024 3:51 PM [facility] eGFR by CKD-EPI >90 >=90 mL/min/1.7 3 m2 06/28/2024 3:51 PM [facility] Blood BLOOD SPECIMEN / Unknown Venipuncture / Unknown 06/28/2024 3:17 PM CDT 06/28/2024 3:26 PM CDT Martir Choi MD LAB - CHEMISTRY BASSAM [facility] [address] [place] [address], [facility] [phone] * (ABNORMAL) HEMOGLOBIN A1C [IN-HOUSE TEST] (11/22/2023 10:36 AM RUNNING RIGGER) Hemoglobin A1c 6.4(H) <=5.6 % 11/22/2023 12:05 PM [facility] Estimated Average Glucose 137 mg/dL 11/22/2023 12:05 PM [facility] Comment: HbA1c Interpretation: Normal : < 5.7% Pre-diabetes: 5.7-6.4% Diabetes: Equal to or greater than 6.5% Test results diagnostic of diabetes should be repeated for confirmation. Treatment target values recommended by ADA and other clinical organizations should be used to evaluate metabolic control in patients. Reference: [place] Diabetes Association, Standards of Care in Diabetes -2020 In patients 70 years and older consider HbA1c target range of 7.0-7.5% (Reference: Montez Rosas et al. JAMDA. 2012) The Sebia assay for the measurement of HbA1c is a National Glycohemoglobin Standardization Program (NGSP) certified method. Blood BLOOD SPECIMEN WITH EDTA / Unknown Lab Venipuncture / Unknown 11/22/2023 10:36 AM RUNNING RIGGER 11/22/2023 10:42 AM RUNNING RIGGER Jasmin Moore MORTGAGE LENDER-LEAD TRAINER LAB - CHEMISTRY ORDERABLES [facility] [address] [place] [address], [facility] [phone] from Last 3 Months or Most Recently Relevant to Health Maintenance Advance Directives * Full Code (Latest Code Status on File) Date Activated Date Inactivated Comments 10/24/2020 10:10 AM 10/24/2020 6:00 PM Care Teams Bonbon Dipper Relationship Specialty Start Date End Date Matti Balderas MD [address] [facility] [address] [place] [address] PCP - General Family Medicine 10/27/24
--- OUTSIDE RECORDS SUMMARY | 2024-11-12 04:41 | XMS_ITS | Encounter Summary ---
Author Organization [facility] Address [address] [address] [place] [address] Care Team Providers Care Nuclear Supervising Operator Name Role Phone Deisi Andrews MD Primary Care Provider [phone] Encounter Details Date Type Department Care Team (Latest Contact Info) Description 08/11/2024 Travel Social History Tobacco Use Types Packs/Day [...] st Contact Info) Description 01/19/2025 11:30 AM ELECTRICAL PROSPECTING ENGINEER Procedure visit [facility] [address] [facility] [address] [place] [address] Jose Oliver MD [address] [facility] [address] [facility] [place] [address] documented as of this encounter Goals Goal [...] on filedocumented in this encounter Care Teams Nuclear Supervising Operator Relationship Specialty Start Date End Date Deisi Andrews MD [address] [place] [address] [place] [address] PCP - General Family Medicine 05/26/23 10/26/24 documented as of this encounter
--- OUTSIDE RECORDS SUMMARY | 2024-11-12 04:41 | XMS_ITS | Encounter Summary ---
Author Organization [facility] Address [address] [facility] [place] [address] Care Team Providers Care Sanitation Director Name Role Phone Deisi Andrews MD Primary Care Provider [phone] Reason for Visit * Reason Comments Follow-up BCG INSTILLATION #6 Encounter Details Date Type Department Care Team (Late st Contact Info) Description 09/08/2024 10:30 AM CDT Clinical Support [facility] [address] [place] [address] [address] [place] [address] Melissa Rolon, COORDINATOR SKILL TRAINING PROGRAM-[facility] [address] [facility] [place] [place] [address] Asymptomatic microscopic hematuria Social History Tobacco Use Types Packs/Day Years [...] Sign Reading Time Taken Comments Blood Pressure 131/80 09/08/2024 10:47 AM CDT Pulse 91 09/08/2024 10:47 AM CDT Temperature 36.2 ??C (97.2 ??F) 09/08/2024 10:47 AM C DT Respiratory Rate 18 09/08/2024 10:47 AM CDT Oxygen Saturation 92% 09/08/2024 10:47 AM CDT Inhaled Oxygen Concentration - - Weight 83.5 kg (184 lb) 09/08/2024 10:47 AM CDT Height 160 cm (5' 3 ) 09/08/2024 10:47 AM CDT Body Mass Index 32.59 09/08/2024 10:47 AM CDT documented in this encounter Functional [...] No 06/21/2024 documented as of this encounter Patient Instructions * Patient Instructions* Sridevi Alegria MA - 09/08/2024 11:05 AM CDT -To schedule an appointment please call [phone]. -To reach the [facility] office please call -For any nursing or surgery questions please call [phone] -FAX: or documented in this encounter Progress Notes * Melissa Rolon, MEI-NON ACOUSTIC OPERATOR - 09/11/2024 9:00 AM CDT Patient here for BCG and states she thinks she may have a UTI because of odor and bladder pressure,2+ blood on UA, 1+ Leuks. Will send for culture. CRISTY Field documented in this encounter Procedure Notes * Murray Richard LPN - 09/08/2024 11:15 AM CDT BCG instillation unable to be preformed due to positive blood in UA. documented in this encounter Plan of Treatment Upcoming Encounters Date Type Department Care Team (Late st Contact Info) Description 01/19/2025 11:30 AM CLERK MANAGER Procedure visit [facility] - Urology [address] [place] [address] [address] [place] [address] Jose Oliver MD [address] [place] [address] Scheduled Orders Name Type Priority Associated Diagnoses Orde r Schedule CULTURE URINE Microbiology Routine Asymptomatic microscopic hematuria 1 Occurrences starting 09/08/2024 until 10/03/2025 documented as of this encounter Goals Goal Patient Goal Type Associated Problems Recent Progress Patient-Stated? Author Medication Management General On track( 021 1:21 PM CDT) Tamiko Torres RN Note: Expected end date: ongoing Interventions: [...] (AMB) [facility] Routine 09/08/2024 Asymptomatic microscopic hematuria documented in this encounter Results * URINALYSIS AUTO - POINT OF CARE (AMB) [facility] (09/08/2024) Glucose UA - Bilirubin UA POCT - Ketones UA POCT - Specific [facility] UA 1.015 Blood Urine POCT 2+ pH UA 6.0 Protein UA + Urobilinogen UA - Nitrite UA - WBC UA 1+ Urine URINE / Unknown 09/08/2024 Melissa Rolon COORDINATOR SKILL TRAINING PROGRAM-NON ACOUSTIC OPERATOR LAB - POINT OF CARE ORDERABLES documented in this encounter Visit Diagnoses Diagnosis Asymptomatic microscopic hematuria- Primary documented in this encounter Care Teams Sanitation Director Relationship Specialty Start Date End Date Deisi Andrews MD [address] [place] [address] [place] [id number] PCP - General Family Medicine 05/26/23 10/26/24 documented as of this encounter
--- OUTSIDE RECORDS SUMMARY | 2024-11-12 04:41 | XMS_ITS | Encounter Summary ---
Author Organization [facility] Address [address] [place] [address] Care Team Providers Care Assurance Officer Name Role Phone Matti Balderas MD Primary Care Provider [phone] Reason for Visit * Reason Comments Follow-up CYSTO - Malignant ne oplasm of urinary bladder Encounter Details Date Type Department Care Team (Late st Contact Info) Description 10/27/2024 1:30 PM AUTO SERVICE MECHANIC Procedure visit [facility] - Urology [address] [place] [address] [address] [place] [phone] Jose Oliver MD [address] [place] [phone] Malignant neoplasm of urinary bladder, unspecified site [...] Comments Blood Pressure 84/54 10/27/2024 2:11 PM AUTO SERVICE MECHANIC Pulse 78 10/27/2024 2:11 PM AUTO SERVICE MECHANIC Temperature 36.2 ??C (97.2 ??F) 10/27/2024 2:11 PM CS T Respiratory Rate 18 10/27/2024 2:11 PM AUTO SERVICE MECHANIC Oxygen Saturation 96% 10/27/2024 2:11 PM AUTO SERVICE MECHANIC Inhaled Oxygen Concentration - - Weight - - Height 160 cm (5' 3 ) 10/27/2024 2:11 PM AUTO SERVICE MECHANIC Body Mass Index - - documented in this encounter Functional Status Functional [...] Progress Notes * Jose Oliver MD - 10/27/2024 3:23 PM CST See procedure SERVICE MECHANIC documented in this encounter Procedure Notes * Jose Oliver MD - 10/27/2024 2:09 PM CST Images from the original note were not included. Urologic Surgery Cystoscopy Note Date of Operation: 10/27/2024 Preoperative Diagnosis: bladder cancer Postoperative Diagnosis: same Surgeon: Jose Oliver MD Resident(s): Estuardo Argueta MD Procedure Performed: 1) Cystoscopy Findings: Scattered erythema Anesthesia: Local lidocaine jelly per urethra Implant/Drains: none Specimen(s): CxBladder Estimated Blood Loss: minimal Complications: none Indications for Operation: Rody Zaidi is a 63 year old female undergoing cystoscopy due to a history of bladder cancer. 01/2022: TURBT, HG pT1 , CT with left hydroureter and lateral wall lesion 03/2022: Repeat TURBT: no malignancy 07/2022: Office cysto, negative 11/2022: Office cysto: erythematous changes of bladder mucosa 01/2023: Bluelight cysto, TURBT: no malignancy 04/2023: office cysto, negative 10/2023: office cysto with left wall erythema 11/2023: OR with bladder biopsy and left ureteroscopy, negative 01/2024: OR with left ureteroscopy, negative 04/2024: office cysto, papillary lesions 04/2024: NM Renal Scan due to left flank pain, normal 06/2024: TURBT, pTis, and negative cystogram 08/04/24 - 09/15/24: induction BCG Last tumor: 06/21/24 Last imagin10/2023 CTU Procedure in Detail: The patient was properly identified and procedure was defined. The risks and benefits of the procedure were discussed with the patient/family, and informed consent was obtained. A time out was performed to ensure the properpatient, proper procedure, and the administration of any preoperative antibiotics. Lidocaine jelly was instilled via urethra for perioperative anesthetic. The cystoscope was insertedto the urethra and advanced into the bladder. The urethra was normal without lesions or stricture. Once in the bladder,a systematic cystoscopy was performed evaluating the trigone, floor, both lateral calvin, and dome. Retroflexion of the scope was performed. The left ureter appeared widely patent. There was erythema scattered throughout, mostly along the right floor. Possible 1-2mm papillary changes noted on right floor. The scope was removed and urethra re-inspected. There were no significant complications and the patient tolerated the procedure. The cystoscope wasin proper working condition at the end of the procedure. I, Jose Oliver MD, was present during the entire procedure. Follow Up: Suspect BCG changes Follow up CxBladder - if positive then plan on blue light with biopsy and if negative follow up cystoscopy in 3 months Jose Oliver MD 10/27/2024 2:09 PM Low risk: first scope 6-9 months, then annual surveillance for 5 years Int risk: first scope at 3 months, then every 3-6 months for 2 years, 6-12 months for years 3 and 4, then annually thereafter High risk: first scope at 3 months, then every 3 months for 2 years, every 6 months for years 3 and4, then annually thereafter SERVICE MECHANIC documented in this encounter Plan of Treatment Upcoming Encounters Date Type Department Care Team (Late st Contact Info) Description 01/19/2025 11:30 AM AUTO SERVICE MECHANIC Procedure visit [facility] - Urology [address] [place] [phone] Jose Oliver MD [address] [place] [phone] documented as of this encounter Goals Goal [...] CARE (AMB) [facility] Routine 10/27/2024 2:13 PM AUTO SERVICE MECHANIC Malignant neoplasm of urinary bladder, unspecified site (HCC) documented in this encounter Results * URINALYSIS AUTO - POINT OF CARE (AMB) [facility] (10/27/2024 2:13 PM AUTO SERVICE MECHANIC) Glucose UA neg [facility] [address] Bilirubin UA POCT neg [facility] [address] Ketones UA POCT neg [facility] [address] Specific [place] UA 1.[address] [facility] [address] Blood Urine POCT neg [facility] [address] pH UA 5.[address] [facility] [address] Protein UA neg [facility] [address] Urobilinogen UA 0.2 [facility] [address] Nitrite UA neg [facility] [address] WBC UA neg [facility] [address] Urine URINE / Unknown 10/27/2024 2 :13 PM AUTO SERVICE MECHANIC Jose Oliver MD LAB - POINT OF CAR E ORDERABLES [facility] [address] [place] [address], [facility] [phone] documented in this encounter Visit Diagnoses Diagnosis Malignant neoplasm of urinary bladder, unspecified site (HCC)- Primary documented in this encounter Care Teams Assurance Officer Relationship Specialty Start Date End Date Matti Balderas MD [address] [place], [place] [id number] PCP - General Family Medicine 10/27/24 documented as of this encounter
--- OUTSIDE RECORDS SUMMARY | 2024-11-12 04:41 | XMS_ITS | Encounter Summary ---
Author Organization [facility] Address [address] [place] [address] Care Team Providers Care Cavity Pump Operator Name Role Phone Deisi Andrews MD Primary Care Provider [phone] Encounter Details Date Type Department Care Team (Latest Contact Info) Description 09/01/2024 Travel Social History Tobacco Use Types Packs/Day [...] st Contact Info) Description 01/19/2025 11:30 AM VALVE SEATER OPERATOR Procedure visit [facility] Urology [address] [place] [address] Jose Oliver MD [address] [facility] [address] [facility] [place] [address] documented as of this encounter Goals Goal [...] on filedocumented in this encounter Care Teams Cavity Pump Operator Relationship Specialty Start Date End Date Deisi Andrews MD [address] [place] [address] [place] [address] PCP - General Family Medicine 05/26/23 10/26/24 documented as of this encounter
--- OUTSIDE RECORDS SUMMARY | 2024-11-12 04:41 | XMS_ITS | Patient Health Summary ---
Author Organization [facility] Address [address] [place] [address] Care Team Providers Care Metrology Engineer Name Role Phone Matti Balderas MD Primary Care Provider [phone] Note from [facility],non-owned Affiliates and Associated Physician Practices is amultiple site organization consisting of ambulatory clinics and hospital sitesin [place], [place], [place] and [place]. This disclosure is being madepursuant to the Care Everywhere program and may not contain all information available regarding this patient. Last updated 18.[facility] Allergies * Bee Venom(Swelling) -Medium Criticality * Codeine(Itching) * Haloperidol(Other) -Low Criticality * Risperidone(Other) * Hmg-Coa-R Inhibitors(Other) * Triazolam(Unknown) * Azithromycin(Unknown),Inactive * Ketorolac Tromethamine(Unknown),Inactive * Penicillin G(Other),Inactive * Penicillins(Urticaria,Other) -High Criticality,Inactive Medications * Be aware that medications may not be up to date on this document. Alwaysverify current medications with the patient. * metFORMIN (GLUCOPHAGE) 500 MG tablet(Started 12/27/2016) Take 1 (one) tablet by mouth 2 times daily with morning and evening meal * vitamin D, ergocalciferol, (DRISDOL) 52039 UNITS capsule(Started 01/29/2019) Take 1 (one) capsule by mouth every 7 days * cromolyn (CROLOM) 4 % ophthalmic solution(Started 06/12/2020) Instill 1 drop into both eyes 3 times daily 4 refills by 06/12/2021 * EPINEPHrine (EPIPEN) 0.3 MG/0.3ML auto-injector pen epinephrine 0.3 mg/0.3 mL injection, auto-injector * albuterol (PROVENTIL;VENTOLIN) (2.5 MG/3ML) 0.083% nebulizer solution(Started 11/03/2021) Inhale 2.5 (two and one-half) mg by mouth every 4 hours as needed for Shortness of Breath * clopidogrel (PLAVIX) 75 MG tablet(Started 12/08/2021) Take 1 (one) tablet by mouth once daily * ezetimibe (ZETIA) 10 MG tablet(Started 12/08/2021) Take 1 (one) tablet by mouth once daily 4 refills by 12/08/2022 * losartan (COZAAR) 100 MG tablet(Started 12/08/2021) Take 1 (one) tablet by mouth once daily 4 refills by 12/08/2022 * nitroGLYCERIN (NITROSTAT) 0.4 MG tablet(Started 12/08/2021) Dissolve 1 (one) tablet under the tongue every 5 minutes as needed for Angina 4 refills by 12/08/2022 * albuterol HFA (PROAIR HFA) 108 (90 Base) MCG/ACT inhaler(Started 01/05/2022) Inhale 2 (two) puffs by mouth every 4 hours as needed 11 refills by 01/05/2023 * cetirizine (ZYRTEC) 10 MG tablet cetirizine 10 mg tablet TAKE 1 TABLET BY MOUTH ONCE DAILY NEEDED * ibuprofen (MOTRIN) 600 MG tablet(Started 03/23/2022) Take 1 (one) tablet by mouth every 6 hours as needed (for post operative pain) * evolocumab (REPATHA SURECLICK) 140 MG/ML auto-injector(Started 05/29/2022) INJECT 1 PEN UNDER THE SKIN EVERY 14 DAYS 4 refills by 05/29/2023 * cyclobenzaprine (Flexeril) 10 MG tablet 1 po tid prn * fluticasone propionate (Flonase) 50 MCG/ACT nasal spray USE 1 SPRAY(S) IN EACH NOSTRIL ONCE DAILY * metoclopramide (Reglan) 5 MG tablet Take 1 (one) tablet by mouth every 6 hours as needed * Eliquis 5 MG tablet(Started 11/02/2023) Take 1 (one) tablet by mouth every 12 hours * sotalol (Betapace) 80 MG tablet(Started 10/28/2023) Take 1.5 (one and one-half) tablets by mouth every 12 hours * multivitamin daily tablet Take 1 (one) tablet by mouth daily with food * ascorbic acid (Vitamin C) 500 MG tablet Take 1 (one) tablet by mouth once daily * hyoscyamine (Levsin) 0.125 MG IR tablet(Started 11/30/2023) TAKE 1 TABLET BY MOUTH EVERY 4 HOURS NEEDED FOR SPASMS * ondansetron, disintegrating, (Zofran ODT) 8 MG tablet(Started 01/09/2024) * dexlansoprazole (Dexilant) 30 MG capsule Take 1 (one) capsule by mouth once daily * nicotine (Nicoderm CQ) 21 MG/24HR patch(Started 06/19/2024) Apply 1 (one) patch to skin once daily 2 refills by 06/19/2025 * nicotine (Nicotrol) 10 MG inhaler(Started 06/19/2024) Inhale 10 mg by mouth as needed for Smoking Cessation 2 refills by 06/19/2025 * acetaminophen (Tylenol) 325 MG tablet(Started 06/21/2024) Take 2 (two) tablets by mouth every 6 hours as needed for Fever or Pain Maximum allowable Acetaminophen amount = 4 Grams (4000 mg) / 24 hours. * oxyBUTYnin CR 24hr (Ditropan XL) 15 MG tablet(Started 09/01/2024) Take 1 (one) tablet by mouth once daily 4 refills by 09/01/2025 * fenofibrate (Fenoglide) 120 MG(Started 08/29/2024) Take 1 (one) tablet by mouth once daily * LORazepam (Ativan) 0.5 MG tablet(Started 09/19/2024) Take 1 (one) tablet by mouth 3 times daily as needed for Anxiety 2 refills by 03/18/2025 * FLUoxetine (PROzac) 40 MG capsule(Started 09/19/2024) Take 1 (one) capsule by mouth once daily 2 refills by 09/19/2025 Active Problems Problem Noted Date Diagnosed Date CAD in rosebud artery 10/24/2020 MDD (recurrent major depressive disorder) in rem ission 08/05/2018 GIOVANNY (generalized anxiety disorder) 06/09/2017 Obesity 01/09/2017 Nocturia 01/09/2017 Personal history of transien t ischemic attack (TIA), and cerebral infarction without residual deficits 01/09/2017 Occlusion and stenosis of bilateral carotid thomas nguyen 01/09/2017 Chronic pain syndrome 01/09/2017 Type 2 diabetes mellitus with diabetic polyneuro charlene 01/09/2017 Insomnia due to medical condition 01/09/2017 Gastro-esophageal reflux disease without esophag itis 01/09/2017 Primary osteoarthritis of one knee 01/09/2017 Other asthma 01/09/2017 Sleep related leg cramps 01/09/2017 Other forms of angina pectoris 01/09/2017 Essential (primary) hypertension 01/09/2017 Hypersomnia due to medical condition 01/09/2017 Chronic obstructive pulmonary disease 01/09/2017 Personal history of traumatic brain injury 01/09 Restless legs syndrome 01/01/2017 Obstructive sleep apnea 01/01/2017 Cervicalgia 04/28/2015 Other chronic pain 04/28/2015 PAD (peripheral artery disease) Resolved Problems Problem Noted Date Diagnosed Date Resolved Date Type 2 diabetes mellitus wit hout complications 01/09/2017 02/22/2019 Other sleep disorders 01/09/20172018 Major depressive disorder, single episode 10/14/2016 05/10/2018 Immunizations * INFLUENZA VACCINE, TRIV. (AFLURIA, FLUZONE TRIVALENT; 6MO+) (IIV3)(Given 12/16/2015) * Covid OBMedical primary monovalent 12+ yr 0.3mL Purple cap(Given 03/13/2021, 02/17/2021) * FLU VACCINE QUAD IIV4 SPLIT 0.25 ML IM(Given 08/28/2020) * INFLUENZA(Given 08/28/2020) * INFLUENZA VACCINE, QUADR. (FLUZONE; FLULAVAL; FLUARIX; AFLURIA QUADRIVALENT; 6MO+), 0.5 ML (IIV4)(Given 09/22/2019, 07/27/2018, 08/26/2017, 10/21/2016, 07/30/2015) * PNEUMOCOCCAL PPSV23(Given 10/21/2016) * Pneumococcal Pcv13 Conj(Given 07/23/2016, 12/16/2015) * TDAP (7yrs+)(Given 05/27/2021, 01/31/2019) * iNFLUENZA VACCINE, RECOM-MIRANDA, QUADR. (FLUBLOCK QUADRIVALENT; 18Y+) (RIV4)(Given 01/05/2022) Social History Tobacco Use Types Packs/Day Years [...] Comments Blood Pressure 84/54 10/27/2024 2:11 PM ROLL SCALE MAN Pulse 78 10/27/2024 2:11 PM [employer]LL [employer] Temperature 36.2 ??C (97.2 ??F) 10/27/2024 2:11 PM CS T Respiratory Rate 18 10/27/2024 2:11 PM [employer]LL [employer] MAN Oxygen Saturation 96% 10/27/2024 2:11 PM ROLL SCALE MAN Inhaled Oxygen Concentration 21% 06/21/2024 8 :20 AM CDT Weight 83.9 kg (185 lb) 09/19/2024 9:51 AM ROLL SCALE MAN Height 160 cm (5' 3 ) 10/27/2024 2:11 PM [employer]LL [employer] MAN Body Mass Index 32.77 09/15/2024 11:54 AM CDT Medical Devices Implanted Type Area Size Stamper Device Identifier Shelf Expiration Date Model / Serial / Lot Stent Trchbr 10mm 7fr 38mm 80cm Cvr Cath Implanted:Qty: 1 on 09/04/2020 by Kendrick Tao MD at [facility] N/A: Abdomen [employer] 04/05/2023 [id number] / / [id number] Stent Trchbr 8mm 7fr 38mm 80cm Cvr Cath Implanted:Qty: 1 on 09/04/2020 by Kendrick Tao MD at [facility] N/A: Abdomen [employer] 05/22/2023 [id number] / / [id number] Procedures * URINALYSIS AUTO - POINT OF CARE (AMB) [facility](Performed 10/27/2024) Performed for Malignant neoplasm of urinary bladder, unspecified site (HCC) * URINALYSIS AUTO - POINT OF CARE (AMB) [facility](Performed 09/15/2024) Performed for Malignant neoplasm of urinary bladder, unspecified site (HCC) * URINALYSIS AUTO - POINT OF CARE (AMB) [facility](Performed 09/08/2024) Performed for Asymptomatic microscopic hematuria * CULTURE URINE(Performed 09/08/2024) * URINALYSIS AUTO - POINT OF CARE (AMB) [facility](Performed 09/01/2024) Performed for Malignant neoplasm of urinary bladder, unspecified site (HCC) * URINALYSIS AUTO - POINT OF CARE (AMB) [facility](Performed 08/18/2024) Performed for Malignant neoplasm of urinary bladder, unspecified site (HCC) * URINALYSIS AUTO - POINT OF CARE (AMB) [facility](Performed 08/11/2024) Performed for Malignant neoplasm of urinary bladder, unspecified site (HCC) * URINALYSIS AUTO - POINT OF CARE (AMB) [facility](Performed 08/04/2024) Performed for Malignant neoplasm of urinary bladder, unspecified site (HCC) * URINALYSIS REFLEX TO MICROSCOPIC NO CULTURE(Performed 06/28/2024) * CULTURE URINE(Performed 06/28/2024) * PT-INR [facility](Performed 06/28/2024) * BASIC METABOLIC PANEL (CALCIUM TOTAL)(Performed 06/28/2024) * CBC W AUTO DIFFERENTIAL(Performed 06/28/2024) * FL CYSTO SURGERY(Performed 06/21/2024) Performed for Nocturia * PATHOLOGY TISSUE(Performed 06/21/2024) Performed for Malignant neoplasm of urinary bladder, unspecified site (HCC) * IL URETERAL REFLUX STUDY(Performed 06/21/2024) Performed for Malignant neoplasm of urinary bladder, unspecified site (HCC) * IL CYSTO/URETERO/PYELOSCOPY W/BX(Performed 06/21/2024) Performed for Malignant neoplasm of urinary bladder, unspecified site (HCC) * GLUCOSE - POINT OF CARE(Performed 06/21/2024) * PTT [facility](Performed 06/21/2024) Performed for PAD (peripheral artery disease) (HCC) * PT-INR [facility](Performed 06/21/2024) Performed for PAD (peripheral artery disease) (HCC) * LAB RESULTS ORDER(Performed 06/07/2024) * URINALYSIS AUTO - POINT OF CARE (AMB) [facility](Performed 05/05/2024) Performed for Other hydronephrosis * NM RENAL SCAN W DRUG(Performed 04/20/2024) Performed for Other hydronephrosis * FL CYSTO SURGERY(Performed 01/17/2024) Performed for Other hydronephrosis * GLUCOSE - POINT OF CARE(Performed 01/17/2024) * PATHOLOGY TISSUE(Performed 01/17/2024) Performed for Other hydronephrosis * IL CYSTOURETHROSCOPY,URETER CATHETER(Performed 01/17/2024) Performed for Other hydronephrosis * GLUCOSE - POINT OF CARE(Performed 01/17/2024) * LAB RESULTS ORDER(Performed 01/12/2024) * FL CYSTO SURGERY(Performed 12/07/2023) Performed for Malignant neoplasm of urinary bladder, unspecified site (HCC) * GLUCOSE - POINT OF CARE(Performed 12/07/2023) * CYTOLOGY NON-NOODLE PRESS OPERATOR PANEL (STL)(Performed 12/07/2023) Performed for Malignant neoplasm of urinary bladder, unspecified site (HCC) * PATHOLOGY TISSUE(Performed 12/07/2023) Performed for Malignant neoplasm of urinary bladder, unspecified site (HCC) * LARYNGEAL MASK AIRWAY(Performed 12/07/2023) * IL CYSTO/URETERO/PYELOSCOPY, DX(Performed 12/07/2023) Performed for Malignant neoplasm of urinary bladder, unspecified site (HCC) * IL CYSTOURETHROSCOPY,URETER CATHETER(Performed 12/07/2023) Performed for Malignant neoplasm of urinary bladder, unspecified site (HCC) * IL CYSTOURETHROSCOPY,FULGUR 2-5CM LESN(Performed 12/07/2023) Performed for Malignant neoplasm of urinary bladder, unspecified site (HCC) * GLUCOSE - POINT OF CARE(Performed 12/07/2023) * CULTURE URINE(Performed 11/24/2023) * HEMOGLOBIN A1C(Performed 11/22/2023) Performed for Pre-op exam * CBC W/O DIFFERENTIAL(Performed 11/22/2023) Performed for Pre-op exam * BASIC METABOLIC PANEL (CALCIUM TOTAL)(Performed 11/22/2023) Performed for Pre-op exam * URINALYSIS AUTO - POINT OF CARE (AMB) [facility](Performed 10/22/2023) Performed for Malignant neoplasm of urinary bladder, unspecified site (HCC) * CT UROGRAM(Performed 10/22/2023) Performed for Malignant neoplasm of urinary bladder, unspecified site (HCC) * CREATININE - POCT INTERFACED(Performed 10/22/2023) * CYTOLOGY NON-NOODLE PRESS OPERATOR(Performed 06/02/2023) * CYTOLOGY NON-NOODLE PRESS OPERATOR PANEL(Performed 06/02/2023) Performed for Malignant neoplasm of urinary bladder, unspecified site (HCC) * URINALYSIS AUTO - POINT OF CARE (AMB) [facility](Performed 05/26/2023) Performed for Malignant neoplasm of urinary bladder, unspecified site (HCC) * GLUCOSE - POINT OF CARE(Performed 01/18/2023) * GLUCOSE - POINT OF CARE(Performed 01/18/2023) * ENDOTRACHEAL TUBE NOTE(Performed 01/18/2023) * LARYNGEAL MASK AIRWAY(Performed 01/18/2023) * PATHOLOGY TISSUE(Performed 01/18/2023) Performed for Malignant neoplasm of urinary bladder, unspecified site (HCC) * TRANSURETHRAL RESECTION BLADDER TUMOR (TURBT)(Performed 01/18/2023) Performed for Malignant neoplasm of urinary bladder, unspecified site (HCC) * GLUCOSE - POINT OF CARE(Performed 01/18/2023) * URINALYSIS AUTO - POINT OF CARE (AMB) [facility](Performed 12/04/2022) Performed for Malignant neoplasm of urinary bladder, unspecified site (HCC) * CYTOLOGY NON-NOODLE PRESS OPERATOR(Performed 08/14/2022) * CYTOLOGY NON-NOODLE PRESS OPERATOR PANEL(Performed 08/14/2022) Performed for Malignant neoplasm of urinary bladder, unspecified site (HCC) * URINALYSIS AUTO - POINT OF CARE (AMB) [facility](Performed 08/14/2022) Performed for Malignant neoplasm of urinary bladder, unspecified site (HCC) * CARDIAC RHYTHM STRIP ORDER(Performed 03/26/2022) * GLUCOSE - POINT OF CARE(Performed 03/23/2022) * PATHOLOGY TISSUE EXAM (STL)(Performed 03/23/2022) Performed for Diagnosis unknown * ENDOTRACHEAL TUBE NOTE(Performed 03/23/2022) * IL CYSTO/URETERO/PYELOSCOPY, DX(Performed 03/23/2022) Performed for Diagnosis unknown * TRANSURETHRAL RESECTION BLADDER TUMOR (TURBT)(Performed 03/23/2022) Performed for Diagnosis unknown * GLUCOSE - POINT OF CARE(Performed 03/23/2022) * LAB RESULTS ORDER(Performed 03/13/2022) * URINALYSIS NO MICROSCOPIC NO CULTURE(Performed 03/11/2022) Performed for Malignant neoplasm of urinary bladder, unspecified site (HCC) * BASIC METABOLIC PANEL (CALCIUM TOTAL)(Performed 03/11/2022) Performed for Malignant neoplasm of urinary bladder, unspecified site (HCC) * CBC W AUTO DIFFERENTIAL(Performed 03/11/2022) Performed for Malignant neoplasm of urinary bladder, unspecified site (HCC) * CULTURE URINE(Performed 03/11/2022) Performed for Malignant neoplasm of urinary bladder, unspecified site (HCC) * URINALYSIS AUTO - POINT OF CARE (AMB) [facility](Performed 02/27/2022) Performed for Malignant neoplasm of urinary bladder, unspecified site (HCC) * PATH CONSULT ON REFERRED CASE(Performed 02/13/2022) Performed for Illness, unspecified * ECHO COMPLETE W BUBBLE STUDY(Performed 12/31/2021) Performed for Pulmonary emphysema, unspecified emphysema type (HCC) * LDL CHOLESTEROL DIRECT(Performed 12/02/2021) Performed for 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 (HCC) * [id number] BLOOD(Performed 12/02/2021) Performed for Pulmonary emphysema, unspecified emphysema type (HCC) * [id number]-[id number] BLOOD PHENOTYPING PANEL(Performed 12/02/2021) Performed for Pulmonary emphysema, unspecified emphysema type (HCC) * LIPID PROFILE(Performed 12/02/2021) Performed for 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 (HCC) * OPH OCT TEST [facility](Performed 12/02/2021) Performed for Blurred vision, bilateral * URINE DRUG SCREEN IMMUNOASSAY(Performed 10/06/2021) Performed for MDD (recurrent major depressive disorder) in remission ([facility]) * HEMOGLOBIN A1C(Performed 10/06/2021) Performed for MDD (recurrent major depressive disorder) in remission ([facility]) * VITAMIN D 25-HYDROXY(Performed 10/06/2021) Performed for MDD (recurrent major depressive disorder) in remission ([facility]) * COMPREHENSIVE METABOLIC PANEL(Performed 10/06/2021) Performed for MDD (recurrent major depressive disorder) in remission ([facility]) * CBC W AUTO DIFFERENTIAL(Performed 10/06/2021) Performed for MDD (recurrent major depressive disorder) in remission ([facility]) * TSH REFLEX FREE T4(Performed 10/06/2021) Performed for MDD (recurrent major depressive disorder) in remission ([facility]) * BLOOD GASES ART+COOX POCT(Performed 10/06/2021) * PFT OXYGEN DESATURATION STUDY(Performed 10/06/2021) Performed for Acute exacerbation of chronic obstructive pulmonary disease (COPD) ([facility]), Tobacco dependence, CATHERINE (obstructive sleep apnea) * SIX MINUTE WALK(Performed 10/06/2021) Performed for Acute exacerbation of chronic obstructive pulmonary disease (COPD) ([facility]), Tobacco dependence, CATHERINE (obstructive sleep apnea) * COMPLETE PFT W/WO BRONCHODILATOR(Performed 10/06/2021) Performed for Acute exacerbation of chronic obstructive pulmonary disease (COPD) ([facility]), Tobacco dependence, CATHERINE (obstructive sleep apnea) * LIPID PROFILE(Performed 09/30/2021) Performed for Hyperlipidemia, unspecified hyperlipidemia type * LDL CHOLESTEROL DIRECT(Performed 03/20/2021) Performed for PVD (peripheral vascular disease) ([facility]), Coronary artery disease involving rosebud heart without angina pectoris, unspecified vessel or lesion type, Hyperlipidemia, unspecified hyperlipidemia type * LIPID PROFILE(Performed 02/20/2021) Performed for 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 ([facility]) * LAB RESULTS ORDER(Performed 11/02/2020) * CARDIAC PROCEDURE ORDER(Performed 11/02/2020) * CCL CARDIAC CATH LEFT(Performed 10/24/2020) Performed for Stable angina pectoris * GLUCOSE - POINT OF CARE(Performed 10/24/2020) * VAS CAROTID DUPLEX BILATERAL(Performed 10/22/2020) Performed for Bilateral carotid artery stenosis * VAS ARTERIAL ANKLE ARM INDEX(Performed 10/22/2020) Performed for PAD (peripheral artery disease) ([facility]) * VAS DILEEP ABD DOPPLER AO IVC ILIAC(Performed 10/22/2020) Performed for PAD (peripheral artery disease) ([facility]) * PT-INR(Performed 10/21/2020) Performed for Essential (primary) hypertension, Stable angina pectoris * CBC W AUTO DIFFERENTIAL(Performed 10/21/2020) Performed for Essential (primary) hypertension, Stable angina pectoris * BASIC METABOLIC PANEL (CALCIUM TOTAL)(Performed 10/21/2020) Performed for Essential (primary) hypertension, Stable angina pectoris * CARDIAC EKG ORDER(Performed 10/03/2020) * PROC EKG IN CLINIC(Performed 10/01/2020) Performed for Essential (primary) hypertension * CARDIAC EKG ORDER(Performed 09/05/2020) * TROPONIN I(Performed 09/04/2020) Performed for Chest pain, unspecified type * EKG 12-LEAD(Performed 09/04/2020) Performed for Chest pain, unspecified type * IR ANGIOGRAM LEFT LEG(Performed 09/04/2020) Performed for PAD (peripheral artery disease) ([facility]) * GLUCOSE - POINT OF CARE(Performed 09/04/2020) * BASIC METABOLIC PANEL (CALCIUM TOTAL)(Performed 09/04/2020) Performed for PAD (peripheral artery disease) ([facility]) * CBC W/O DIFFERENTIAL(Performed 09/04/2020) Performed for PAD (peripheral artery disease) ([facility]) * VAS ARTERIAL ANKLE ARM INDEX(Performed 07/10/2020) Performed for Peripheral vascular disease with claudication ([facility]) * VAS DILEEP ABD DOPPLER AO IVC ILIAC(Performed 07/10/2020) Performed for Peripheral vascular disease with claudication ([facility]) * OPH OCT TEST [facility](Performed 06/12/2020) Performed for Blurred vision, bilateral * OPH OCT TEST [facility](Performed 06/12/2020) Performed for Blurred vision, bilateral * OPH OCT TEST [facility](Performed 02/09/2020) Performed for Blurred vision, bilateral * XR KNEE RIGHT 4VW OR MORE(Performed 10/08/2015) * XR KNEE LEFT 4VW OR MORE(Performed 10/08/2015) * XR CERVICAL SPINE 2 OR 3VW(Performed 04/12/2015) * XR SCOLIOSIS 1VW(Performed 04/12/2015) Results * URINALYSIS AUTO - POINT OF CARE (AMB) [facility] (10/27/2024 2:13 PM [employer]) Only the most recent of13 resultswithin the time period is included. Glucose UA neg [facility] [address] Bilirubin UA POCT neg [facility] [address] Ketones UA POCT neg [facility] [address] Specific [place] UA 1.[address] [facility] [address] Blood Urine POCT neg [facility] [address] pH UA 5.5 [facility] [address] Protein UA neg [facility] [address] Urobilinogen UA 0.2 [facility] [address] Nitrite UA neg [facility] [address] WBC UA neg [facility] [address] Urine URINE / Unknown 10/27/2024 2 :13 PM [employer] Jose Oliver MD LAB - POINT OF CAR E ORDERABLES [facility] [address] [place] [address], [facility] [phone] * CULTURE URINE (09/08/2024) Only the most recent of4 resultswithin the time period is included. Culture [facility] Comment: ??CULTURE, URINE, ROUTINE ?Micro Number: ?[id number] ??Test Status: ? Final ??Specimen Source: ?? Urine ??Specimen Quality: ??Adequate ??Result: ?Mixed genital unruly isolated. These superficial ? bacteria are not indicative of a urinary tract ? infection. No further organism identification is ? warranted on this specimen. If clinically ? indicated, recollect clean-catch, mid-stream ? urine and transfer immediately to Urine Culture ? Transport Tube. Test Performed at: [facility] [employer] ??[id number] GISELE JUSTICE MD 09/08/2024 09/09/2024 1:3 2 AM CDT Melissadebbie Rolon SENIOR PHYSICIAN-[employer] LAB - MICROBIOL OGY ORDERABLES [facility] [employer] [address] [place] [id number] * (ABNORMAL) URINALYSIS REFLEX TO MICROSCOPIC NO CULTURE (06/28/2024 3:18 PM CDT) Color UA Red(A) Straw, Yellow 06/28/2024 3:51 PM T [facility] Clarity UA Slt Cloudy(A) Clear 06/28/2024 3:51 PM [facility] Specific [place] UA 1.028 1.005 - 1.030 06/28/2024 3:51 PM [facility] pH UA 6.0 5.0 - 8.0 pH 06/28/2024 3:51 PM [facility] Protein UA 1+(A) Negative 06/28/2024 3:51 PM [facility] Glucose UA Negative Negative 06/28/2024 3:51 PM [facility] Ketone UA Negative Negative 06/28/2024 3:51 PM [facility] Bilirubin UA Negative Negative 06/28/2024 3:51 PM [facility] Blood UA 3+(A) Negative 06/28/2024 3:51 PM [facility] Nitrite UA Negative Negative 06/28/2024 3:51 PM [facility] Leukocyte Esterase Trace(A) Negative 06/28/2024 3:51 PM [facility] Urobilinogen UA Negative Negative mg/dL 06/28/2024 3:51 PM [facility] RBC UA >100(A) None Seen, 0-2, 3-5 /HPF 06/28/2024 3:51 PM [facility] WBC UA 0-5 None Seen, 0-5 /HPF 06/28/2024 3:51 PM CDT [facility] Squamous Epithelial Cells UA 0-2 None Seen, 0-2, 3-5 /HPF 06/28/2024 3:51 PM CDT [facility] Urine URINE SPECIMEN OBTAINED BY CLEAN CATCH PROCEDURE / Unknown Collection / Unknown 06/28/2024 3:18 PM CDT 06/28/2024 3:22 PM CDT Narrative [facility] - 06/28/2024 3:51 PM CDT Martir Choi MD LAB - URINALYSIS ORD ERABLES Performing Organization Address [facility]/ZIP Co de Phone Number [address] [phone], [facility] [phone] * PT-INR [facility] (06/28/2024 3:17 PM CDT) Only the most recent of2 resultswithin the time period is included. PT 13.1 12.1 - 14.8 Seconds 06/28/2024 3:47 PM CDT [facility] INR 1.0 See Comment 06/28/2024 3:47 PM CDT [facility] Comment:The suggested therap eutic range for standard coumadin (warfarin) therapy is an INR of 2.0-3.0. For high-risk patients (Mechanical Mitral Valve Prosthesis, etc.), the suggested prophylactic therapeutic range is an INR of 2.5-3.5. Blood BLOOD SPECIMEN / Unknown Venipuncture / Unknown 06/28/2024 3:17 PM CDT 06/28/2024 3:26 PM CDT Martir Choi MD LAB - COAGULATION OR DERABLES Performing Organization Address City/[facility]/ZIP Co de Phone Number [address] [address], [place] [phone] * (ABNORMAL) CBC W AUTO DIFFERENTIAL (06/28/2024 3:17 PM CDT) Only the most recent of4 resultswithin the time period is included. WBC 12.1(H) 4.0 - 10.7 x10E9/L 06/28/2024 3:33 PM [facility] RBC Count 5.43(H) 3.90 - 5.20 x10E12/L 06/28/2024 3:33 PM [facility] Hemoglobin 15.3 11.9 - 15.8 g/dL 06/28/2024 3:33 PM [facility] Hematocrit 46.0 34.8 - 46.1 % 06/28/2024 3:33 PM [facility] MCV 84.7 80.0 - 98.0 fL 06/28/2024 3:33 PM [facility] MCH 28.2 26.7 - 33.6 pg 06/28/2024 3:33 PM [facility] MCHC 33.3 31.7 - 36.3 g/dL 06/28/2024 3:33 PM [facility] RDW-CV 13.0 11.3 - 14.8 % 06/28/2024 3:33 PM [facility] Platelet Count 218 150 - 420 x10E9/L 06/28/2024 3:33 PM [facility] MPV 9.9 7.8 - 11.4 fL 06/28/2024 3:33 PM [facility] Neutrophil % 65.5 41.0 - 74.0 % 06/28/2024 3:33 PM [facility] Lymphocyte % 24.0 17.0 - 47.0 % 06/28/2024 3:33 PM [facility] Monocyte % 6.7 3.0 - 11.0 % 06/28/2024 3:33 PM [facility] Eosinophil % 3.1 0.0 - 7.0 % 06/28/2024 3:33 PM [facility] Basophil % 0.4 0.0 - 1.6 % 06/28/2024 3:33 PM [facility] Immature Granulocytes % 0.3 0.0 - 1.0 % 06/28/2024 3:33 PM [facility] Neutrophil Absolute 7.90(H) 1.60 - 7.50 x10E9/L 06/28/2024 3:33 PM [facility] Lymphocyte Absolute 2.90 1.00 - 4.40 x10E9/L 06/28/2024 3:33 PM [facility] Monocyte Absolute 0.81 0.15 - 1.00 x10E9/L 06/28/2024 3:33 PM [facility] Eosinophil Absolute 0.38 0.00 - 0.60 x10E9/L 06/28/2024 3:33 PM [facility] Basophil Absolute 0.05 0.00 - 0.13 x10E9/L 06/28/2024 3:33 PM [facility] Blood BLOOD SPECIMEN / Unknown Venipuncture / Unknown 06/28/2024 3:17 PM CDT 06/28/2024 3:26 PM CDT Martir Choi MD LAB - HEMATOLOGY ORD ERABLES [facility] [address] [place] [address], [facility] [phone] * BASIC METABOLIC PANEL (CALCIUM TOTAL) (06/28/2024 3:17 PM CDT) Only the most recent of5 resultswithin the time period is included. BUN 15 7 - 26 mg/dL 06/28/2024 3:51 PM [facility] Creatinine 0.69 0.56 - 0.96 mg/dL 06/28/2024 3:51 PM [facility] Sodium 138 136 - 145 mmol/L 06/28/2024 3:51 PM [facility] Potassium 4.0 3.5 - 4.5 mmol/L 06/28/2024 3:51 PM [facility] Chloride 103 98 - 107 mmol/L 06/28/2024 3:51 PM [facility] CO2 26 22 - 29 mmol/L 06/28/2024 3:51 PM [facility] Glucose 102 70 - 115 mg/dL 06/28/2024 3:51 PM [facility] Calcium 9.4 8.4 - 10.2 mg/dL 06/28/2024 3:51 PM CDT [facility] Anion Gap 9 6 - 16 06/28/2024 3:51 PM CDT [facility] BUN/Creatinine Ratio 22 7 - 23 06/28/2024 3:51 PM CDT [facility] Osmolality Calculated 287 275 - 295 mOsm/kg 06/28/2024 3:51 PM CDT [facility] eGFR by CKD-EPI >90 >=90 mL/min/1.7 3 m2 06/28/2024 3:51 PM CDT [facility] Blood BLOOD SPECIMEN / Unknown Venipuncture / Unknown 06/28/2024 3:17 PM CDT 06/28/2024 3:26 PM CDT Martir Choi MD LAB - CHEMISTRY BASSAM CONTRERAS Performing Organization Address City/[facility]/ZIP Co de Phone Number [facility] [address] [place] [address], [facility] [phone] * [place] Cysto Surgery (06/21/2024 9:46 PM CDT) Only the most recent of3 resultswithin the time period is included. Narrative [facility] - 06/21/2024 9:46 PM CDT Fluoroscopy was used for this exam in the OR. Please see the Operative report. Jose Oliver MD FLUOROSCOPY KALIN BARBER Performing Organization Address [facility] Co de Phone Number [facility] * PATHOLOGY TISSUE (06/21/2024 10:01 AM CDT) Only the most recent of4 resultswithin the time period is included. Case Report Surgical Pathology Report ? Case: [id number] ? Authorizing Provider: ??Jose Oliver MD ?Collected: ? 06/21/2024 10:01 AM ? Ordering Location: ? [facility] ?Received: ?06/21/2024 01:25 PM ? Pathologist: ? Nicole Glaser MD ? Specimens: ?? A) - Bladder Biopsy, 1. right floor bladder ? B) - Bladder Biopsy, 2. Right posterior wall ? 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 Ki-67 stains the majority of urothelial cells, including cells at the surface, supporting a diagnosis of carcinoma in situ 06/23/2024 8:22 AM [facility] Clinical History The patient is a 63 year old woman with history of bladder cancer, now with 2 areas of mild bleeding and mild inflammation noted that were biopsied along the right bladder floor and posterior lateral wall. 06/23/2024 8:22 AM [facility] Gross Description The requisition and specimen(s) are identified with the patient's name Rody Zaidi. Received in formalin, specimen A , are 2 pink-hawthorne tissues, 0.3 x 0.2 x 0.2 cm and 0.4 x 0.3 x 0.2 cm, submitted in toto in cassette A1. Received in formalin, specimen B , is a 0.4 x 0.3 x 0.2 cm pink-hawthorne tissue, submitted in toto in cassette B1. DF 06/23/2024 8:22 AM [facility] PATH[facility] Pathologist Location at [facility] 06/23/2024 8:22 AM [facility] Disclaimer The performance characteristics of all immunohistochemical and indirect immunofluorescence stains (if any) cited in this report were determined by the Histopathology Laboratory of [facility]. Some of these tests were developed by our own laboratory and have not been cleared or approved by the US Food and Drug Administration. The FDA does not require this test to go through premarket FDA review. These tests are used for clinical purposes. They should not be regarded as investigational or for research. This laboratory is certified under the Clinical Laboratory Improvement Amendments (CLIA) as qualified to perform high complexity clinical laboratory testing. This case has been personally reviewed and interpreted by the attending (teaching) pathologist. 06/23/2024 8:22 AM [facility] Embedded Images 06/23/2024 8:22 AM [facility] Biopsy, Excision URINARY BLADDER BIOPSY SPECIMEN / Unknown 06/21/2024 10:01 AM CDT 06/21/2024 1:25 PM CDT Comment:Pre-op diagnosis: Malignant neoplasm of urinary bladder, unspecified site (HCC) Biopsy, Excision URINARY BLADDER BIOPSY SPECIMEN / Unknown 06/21/2024 10:06 AM CDT 06/21/2024 1:25 PM CDT Comment:Pre-op diagnosis: Malignant neoplasm of urinary bladder, unspecified site (HCC) Jose Oliver MD LAB - PATHOLOGY/AIDAN MUNOZ ORDERABLES [facility] [address] [place] [address], [facility] [phone] * (ABNORMAL) GLUCOSE - POINT OF CARE (06/21/2024 8:10 AM CDT) Only the most recent of12 resultswithin the time period is included. Glucose WB/POC 149(H) 70 - 115 mg/dL 06/21/2024 8:47 AM CDT [facility] Specimen Type Venous 06/21/2024 8:47 AM CDT [facility] Blood BLOOD SPECIMEN / Unknown 06/21/2024 8:10 AM CDT 06/21/2024 8:47 AM CDT Jose Oliver MD LAB - POINT OF CAR E ORDERABLES Performing Organization Address [facility]/ZIP Co de Phone Number [address] [address], [facility] [phone] * PTT [facility] (06/21/2024 8:07 AM CDT) APTT 26.7 23.0 - 38.4 Seconds 06/21/2024 8:35 AM CDT [facility] Comment:Suggested therapeuti c range for full dose I.V. unfractionated heparin therapy for venous thromboembolism is 71 to 109 seconds. Blood BLOOD SPECIMEN / Unknown Venipuncture / Unknown 06/21/2024 8:07 AM CDT 06/21/2024 8:09 AM CDT Jose Oliver MD LAB - COAGULATION ORDERABLES Performing Organization Address City/[facility]/ZIP Co de Phone Number [address] [address], [place] [phone] * LAB RESULTS ORDER (06/07/2024) Only the most recent of4 resultswithin the time period is included. 06/07/2024 Narrative 06/07/2024 Ordered by an unspecified provider. Scanned Document LAB - THERAPEUTIC DR UZIEL MONITORING ORDERABLES * NM RENAL SCAN W DRUG (04/20/2024 11:21 AM CDT) Anatomical Region Laterality Modality Abdomen Nuclear Medicine 04/20/2024 9:43 AM CDT Impressions 04/20/2024 3:39 PM CDT IMPRESSION: 1. Borderline normal function of the left kidney without evidence of obstruction. 2. Mild hydronephrosis of the right kidney with good response to Lasix, no obstruction. 3. Differential function is 44% for the left kidney and 56% for the right kidney. > Dictated by Margi Brooke MD ([facility]igator) 04/20/2024 9:43 AM I, Samira Tariq DO have personally reviewed and interpreted this examination/study. > Interpreting Provider: Samira Tariq DO on 04/20/2024 3:39 PM Narrative 04/20/2024 3:39 PM CDT PROCEDURE: ??NM RENAL SCAN W DRUG, DATE/TIME OF EXAM: ??04/20/2024 9:58 AM, LOCATION ??[facility] INDICATION: N13.39: Other hydronephrosis ADDITIONAL CLINICAL INFORMATION: Ordering Provider Reason For Exam: ??hx of left flank pain, assess for obstruction PROCEDURE: Renal blood flow and function with Lasix diuresis HISTORY: 63-year-old female patient with history of infiltrative bladder mass, resulting in left hydronephrosis and hydroureter. Patient's BMI is 31.9 kg/m??. TECHNIQUE: ??11 mCi of Tc-99m MAG3 was administered IV in the right antecubital fossa. Sequential dynamic blood flow images of the abdomen were obtained in the posterior projections for 31 minutes following radiotracer injection. 40 mg Lasix was injected IV after the last image, followed by an additional 31 minutes of dynamic image acquisition. Whole kidney time-activity curves were produced with quantitative indices. COMPARISON: CT urogram 12/23/22. FINDINGS: Blood flow images reveal delayed uptake of the both kidneys. Dilated pelvis of the right kidney. There is prompt uptake and excretion of the tracer bilaterally. ?? Post-Lasix images demonstrate good response to Lasix bilaterally The quantitative values are as follows: Quantitative function Left ?Right ? Renography 6 ?10.5 ?Peak time (min) 8.5 ?19 ?Half peak time (min) 44 ? 56 ?Differential function (%) Lasix renography ? Left ?Right -- ?15 ? Half-peak time (min) Procedure Note Samira Tariq, DO - 04/20/2024 PROCEDURE: NM RENAL SCAN W DRUG, DATE/TIME OF EXAM: 04/20/2024 9:58 AM, LOCATION [facility] INDICATION: N13.39: Other hydronephrosis ADDITIONAL CLINICAL INFORMATION: Ordering Provider Reason For Exam: hx of left flank pain, assess for obstruction PROCEDURE: Renal blood flow and function with Lasix diuresis HISTORY: 63-year-old female patient with history of infiltrative bladder mass, resulting in left hydronephrosis and hydroureter. Patient's BMI is 31.9 kg/m??. TECHNIQUE: 11 mCi of Tc-99m MAG3 was administered IV in the right antecubital fossa. Sequential dynamic blood flow images of the abdomenwere obtained in the posterior projections for 31 minutes followingradiotracer injection. 40 mg Lasix was injected IV after the last image, followed byan additional 31 minutes of dynamic image acquisition. Whole kidney time-activity curves were produced with quantitative indices. COMPARISON: CT urogram 12/23/22. FINDINGS: Blood flow images reveal delayed uptake of the both kidneys. Dilatedpelvis of the right kidney. There is prompt uptake and excretion of the tracer bilaterally. Post-Lasix images demonstrate good response to Lasix bilaterally The quantitative values are as follows: Quantitative function Left Right Renography 6 10.5 Peak time (min) 8.5 19 Half peak time (min) 44 56 Differential function (%) Lasix renography Left Right -- 15 Half-peak time (min) IMPRESSION: 1. Borderline normal function of the left kidney without evidence of obstruction. 2. Mild hydronephrosis of the right kidney with good response to Lasix,no obstruction. 3. Differential function is 44% for the left kidney and 56% for theright kidney. > Dictated by Margi Brooke MD ([facility]) 04/20/2024 9:43 AM I, Samira Tariq DO have personally reviewed and interpreted this examination/study. > Interpreting Provider: Samira Tariq DO on 04/20/2024 3:39 PM Jose Oliver MD NM ORDERABLES * CYTOLOGY NON-NOODLE PRESS OPERATOR PANEL (STL) (12/07/2023 8:21 AM [facility]) Case Report Medical Cytology Report ? Case: [id number] ? Authorizing Provider: ??Jose Oliver MD ?Collected: ? 12/07/2023 08:21 AM ? Ordering Location: ? [facility] ?Received: ?12/07/2023 02:59 PM ? Pathologist: ? Jose Rico MD ? Specimen: ?Body Fluid , left ureteral ? 12/09/2023 12:32 PM [facility] Specimen Adequacy Adequate cellularity for evaluation. 12/09/2023 12:32 PM [facility] Final Diagnosis Left ureter, cytology from cystoscopy: - Atypical urothelial cells 12/09/2023 12:32 PM [facility] Clinical History The patient is a 62 year old female with history of invasive urothelial cell carcinoma s/p TURBT, found to have an erythematous lesion overlying the left ureteral orifice during most recent cystoscopy. Operative procedure: Cystoscopy, transurethral resection of bladder tumor, left retrograde pyelogram and left diagnostic ureteroscopy with brush biopsy; Findings: erythema within the bladder, no obvious papillary mass. 12/09/2023 12:32 PM [facility] Gross Description 1 pap stained cytospin slide from 10cc pink fluid 12/09/2023 12:32 PM [facility] Microscopic Description Microscopic examination substantiates the final diagnosis. 12/09/2023 12:32 PM [facility] Pathologist Location at [facility] 12/09/2023 12:32 PM [facility] Disclaimer The performance characteristics of all immunohistochemical and indirect immunofluorescence stains (if any) cited in this report were determined by the Histopathology Laboratory of [facility]. Some of these tests rely on the use of analyte-specific reagents and are subject to specific labeling requirements by the US Food and Drug Administration. Such tests were developed by the [facility]ology Laboratory of [facility] and have not been cleared or approved by the FDA. The FDA has determined that such clearance and approval is not necessary. These tests are used for clinical purposes and should not be regarded as investigational or for research. This laboratory is certified under the Clinical Laboratory Improvement Amendments (CLIA) as qualified to perform high complexity clinical laboratory testing. This case has been personally reviewed and interpreted by the attending (teaching) pathologist. 12/09/2023 12:32 PM [facility] Embedded Images 12/09/2023 12:32 PM [facility] Pathology/Cytolo gy BODY FLUID SPECIMEN / Unknown Collection / Unknown 12/07/2023 8:21 AM [facility] 12/07/2023 2:59 PM [facility] [employer] [facility] Jose Oliver MD LAB - PATHOLOGY/CY TOLOGY ORDERABLES [facility] [address] [phone] * LARYNGEAL MASK [employer]WAY (12/07/2023 7:47 AM [facility]) Narrative Jr. Jamey Rodriguez Anes Asst - 12/07/2023 7:47 AM [facility] [facility] Jr. Jamey Rodriguez Anes Asst ? 12/07/2023 ??7:47 AM LMA Placement Procedure/LDA Note: Patient Location: OR. LMA Insertion Date/Time: ??12/07/2023 7:37 AM Procedure: LMA. Pretreatment: 100% O2 Induction: standard IV Patient position: sniffing. Mask Ventilation: not attempted Type: ??LMA Size: ??3 Number of Attempts: 1. Cuff volume (mL): ??10 Placement verified by: bilateral breath sounds, chest auscultation and CO2 detector Dentition unchanged? ??Yes Procedure Start Time: 12/07/2023 7:37 AM. Staff Section ? Anesthesia Provider: Jr. Jamey Rodriguez Anes Asst, Performed the procedure Alicja Weaver MD GENERAL ANESTHESIA ORDERABLES * (ABNORMAL) HEMOGLOBIN A1C [IN-HOUSE TEST] (11/22/2023 10:36 AM [facility]) Only the most recent of2 resultswithin the time period is included. Hemoglobin A1c 6.4(H) <=5.6 % 11/22/2023 12:05 PM [facility] Estimated Average Glucose 137 mg/dL 11/22/2023 12:05 PM [facility] Comment: HbA1c Interpretation: Normal : < 5.7% Pre-diabetes: 5.7-6.4% Diabetes: Equal to or greater than 6.5% Test results diagnostic of diabetes should be repeated for confirmation. Treatment target values recommended by ADA and other clinical organizations should be used to evaluate metabolic control in patients. Reference: [place] [employer], Standards of Care in Diabetes -2020 In patients 70 years and older consider HbA1c target range of 7.0-7.5% (Reference: Montez Rosas et al. ELLIEDA. 2012) The Sebia assay for the measurement of HbA1c is a National Glycohemoglobin Standardization Program (NGSP) certified method. Blood BLOOD SPECIMEN WITH EDTA / Unknown Lab Venipuncture / Unknown 11/22/2023 10:36 AM [facility] 11/22/2023 10:42 AM [facility] Jasmin Gerardo Moore SENIOR PHYSICIAN-BUNDLE WRAPPER LAB - CHEMISTRY ORDERABLES [address] [address] [phone] * CBC W/O DIFFERENTIAL (11/22/2023 10:36 AM [facility]) Only the most recent of2 resultswithin the time period is included. WBC 9.9 4.0 - 10.7 x10E9/L 11/22/2023 10:54 AM [facility] RBC Count 4.94 3.90 - 5.20 x10E12/L 11/22/2023 10:54 AM [facility] Hemoglobin 13.6 11.9 - 15.8 g/dL 11/22/2023 10:54 AM [facility] Hematocrit 40.8 34.8 - 46.1 % 11/22/2023 10:54 AM [facility] MCV 82.6 80.0 - 98.0 fL 11/22/2023 10:54 AM [facility] MCH 27.5 26.7 - 33.6 pg 11/22/2023 10:54 AM [facility] MCHC 33.3 31.7 - 36.3 g/dL 11/22/2023 10:54 AM [facility] RDW-CV 14.1 11.3 - 14.8 % 11/22/2023 10:54 AM [facility] Platelet Count 260 150 - 420 x10E9/L 11/22/2023 10:54 AM [facility] MPV 10.1 7.8 - 11.4 fL 11/22/2023 10:54 AM [facility] Blood BLOOD SPECIMEN / Unknown Lab Venipuncture / Unknown 11/22/2023 10:36 AM [facility] [employer] [facility] 11/22/2023 10:42 AM [facility] [facility] Jasmin Moore SENIOR PHYSICIAN-BUNDLE WRAPPER LAB - HEMATOLOGY ORDERABLES [address] [address] [phone] * CT UROGRAM (10/22/2023 10:10 AM [facility]) Anatomical Region Laterality Modality Abdomen, Pelvis Computed Tomogra phy 10/22/2023 10:3 5 AM [facility] Impressions 10/22/2023 10:45 AM [facility] IMPRESSION: 1. An infiltrative bladder mass on the left lateral aspect of the bladder causing obstruction of distal left ureter at the ureterovesical junction and a left hydroureter and hydronephrosis. 2. No metastatic lesions are identified. There is no evidence of urothelial enhancement or enhancing solid renal masses on either side. 3. A small intramural abscess of sigmoid apparently due to sigmoid diverticulitis. See text. There is no evidence of free air. > Interpreting Provider: Douglas Otriz MD on 10/22/2023 10:45 AM Narrative 10/22/2023 10:45 AM [facility] PROCEDURE: ??CT UROGRAM DATE/TIME OF EXAM: ??10/22/2023 10:13 AM CLINICAL INFORMATION: None relevant/not provided if blank. Indication: C67.9: Malignant neoplasm of bladder, unspecified (CMS/HCC) IV CONTRAST: IOPAMIDOL 76 % IV SOLN:[address] UROGRAPHY (CT ABDOMEN AND PELVIS WITHOUT AND WITH CONTRAST) HISTORY: C67.9: Malignant neoplasm of bladder, unspecified (CMS/HCC). COMPARISON: None. TECHNIQUE: Spiral axial scanning of the abdomen and pelvis was performed before as well as in early and delayed phase after intravenous administration of 100 mL of Isovue-370 contrast. Total exam DLP is 3323 mGy-cm. FINDINGS: The kidneys are normal in size and location. In the precontrast images, there are no calcified urinary stones. In the early postcontrast images, the nephrograms are symmetric. There are no enhancing solid renal masses on either side. In the delayed images, no delay in excretion of contrast into renal calyces is identified. There is a left hydronephrosis and hydroureter without an obstructing calcified urinary stone. No obstructive uropathy on the right side is identified and there is no perirenal fat stranding on either side. The right renal calyces, renal pelvis and the right ureter are normally opacified and appear unremarkable. Contrast is visible in the dilated left renal caliectasis on the left renal pelvis and is nonopacification of the entire left ureter. The ureterovesical junctions are in normal anatomic location. There is asymmetric wall thickening of the left lateral wall of the partially empty urinary bladder which accounts for obstruction of the left ureter at the left ureterovesical junction. The anteverted uterus is normal. There is no fluid in uterine cavity or visible focal myometrial lesion. Neither ovary is discretely visible. There are no adnexal lesions. There are a few calcified hepatic and splenic granulomata. There is a splenule in the left upper quadrant and adjacent to the spleen measuring 19 mm in maximum dimension. The adrenal glands, pancreas, liver and the spleen are otherwise within normal limits. The gallbladder is surgically absent. No biliary or pancreatic ductal dilatation is identified. The aorta is normal in size and course and demonstrates mild age-appropriate atherosclerotic calcifications. An aortic endograft is in place distally by passing the aortic bifurcation extending to bilateral common iliac arteries. The lumen of the stent is patent and is opacified. There is no evidence of thrombosis in inferior vena cava, the iliac veins, hepatic veins or portal vein. The stomach and duodenum are within normal limits. The appendix is not seen. There is diverticulosis of the descending colon and sigmoid. In the proximal sigmoid, there is an apparent intramural abscess in the wall of sigmoid colon (series 5, image 120 measuring 2.5 x 1.6 cm. The wall of sigmoid is a slightly thickened and there is minimal perisigmoid fat stranding. The finding is suggestive of sequela of appendicitis. The remainder of the entire bowel is normal in caliber and wall thickness, throughout. The volume of stool is average. There is no evidence of lymphadenopathy, ascites, abscess or pneumoperitoneum. In particular, no pelvic lymphadenopathy is identified. The imaged body wall is unremarkable. In the imaged portion of the chest, the gastroesophageal junction is normal and the imaged lung bases are aerated and clear. The heart is not enlarged and no pleural effusion is seen. The bone window images demonstrate age-related degenerative changes. Procedure Note Douglas Ortiz MD - 10/22/2023 PROCEDURE: CT UROGRAM DATE/TIME OF EXAM: 10/22/2023 10:13 AM CLINICAL INFORMATION: None relevant/not provided if blank. Indication: C67.9: Malignant neoplasm of bladder, unspecified (CMS/HCC) IV CONTRAST: IOPAMIDOL 76 % IV SOLN:[address] UROGRAPHY (CT ABDOMEN AND PELVIS WITHOUT AND WITH CONTRAST) HISTORY: C67.9: Malignant neoplasm of bladder, unspecified (CMS/HCC). COMPARISON: None. TECHNIQUE: Spiral axial scanning of the abdomen and pelvis was performed before as well as in early and delayed phase after intravenous administration of 100 mL of Isovue-370 contrast. Total exam DLP is 3323 mGy-cm. FINDINGS: The kidneys are normal in size and location. In the precontrast images, there are no calcified urinary stones. In the early postcontrast images, the nephrograms are symmetric. There are no enhancing solid renal masseson either side. In the delayed images, no delay in excretion of contrastinto renal calyces is identified. There is a left hydronephrosis andhydroureter without an obstructing calcified urinary stone. No obstructive uropathyon the right side is identified and there is no perirenal fat stranding on either side. The right renal calyces, renal pelvis and the right ureterare normally opacified and appear unremarkable. Contrast is visible in the dilated left renal caliectasis on the left renal pelvis and is nonopacification of the entire left ureter. The ureterovesical junctions are in normal anatomic location. There is asymmetric wall thickening ofthe left lateral wall of the partially empty urinary bladder which accountsfor obstruction of the left ureter at the left ureterovesical junction. The anteverted uterus is normal. There is no fluid in uterine cavity or visible focal myometrial lesion. Neither ovary is discretely visible.There are no adnexal lesions. There are a few calcified hepatic and splenic granulomata. There is a splenule in the left upper quadrant and adjacent to the spleen [id number] mm in maximum dimension. The adrenal glands, pancreas, liver and thespleen are otherwise within normal limits. The gallbladder is surgicallyabsent. No biliary or pancreatic ductal dilatation is identified. The aorta is normal in size and course and demonstrates mild age-appropriate atherosclerotic calcifications. An aortic endograft isin place distally by passing the aortic bifurcation extending to bilateral common iliac arteries. The lumen of the stent is patent and isopacified. There is no evidence of thrombosis in inferior vena cava, the iliacveins, hepatic veins or portal vein. The stomach and duodenum are within normal limits. The appendix is not seen. There is diverticulosis of the descending colon and sigmoid. In the proximal sigmoid, there is an apparent intramural abscess in the wall of sigmoid colon (series 5, image 120 measuring 2.5 x 1.6 cm. The wall of sigmoid is a slightly thickened and there is minimal perisigmoid fat stranding. The finding is suggestive of sequela of appendicitis. The remainder of the entire bowel is normal in caliber and wall thickness, throughout. The volume of stool is average. There is no evidence of lymphadenopathy, ascites, abscess or pneumoperitoneum. In particular, no pelvic lymphadenopathy is identified. The imaged body wall is unremarkable. In the imaged portion of the chest, the gastroesophageal junction isnormal and the imaged lung bases are aerated and clear. The heart is notenlarged and no pleural effusion is seen. The bone window images demonstrate age-related degenerative changes. IMPRESSION: 1. An infiltrative bladder mass on the left lateral aspect of thebladder causing obstruction of distal left ureter at the ureterovesical junction and a left hydroureter and hydronephrosis. 2. No metastatic lesions are identified. There is no evidence ofurothelial enhancement or enhancing solid renal masses on either side. 3. A small intramural abscess of sigmoid apparently due to sigmoid diverticulitis. See text. There is no evidence of free air. > Interpreting Provider: Douglas Ortiz MD on 10/22/2023 10:45 AM Jose Oliver MD CT ORDERABLES * (ABNORMAL) CREATININE - POCT INTERFACED (10/22/2023 9:03 AM [facility]) Creatinine POCT 0.88 0.70 - 1.20 mg/dL 10/22/2023 9:14 AM ROLL SCALE MAN [facility] eGFR 75(L) >=90 mL/min/1.7 3 m2 10/22/2023 9:14 AM ROLL SCALE MAN [facility] Blood BLOOD SPECIMEN / Unknown 10/22/2023 9:03 AM [employer] MAN 10/22/2023 9:14 AM RO[employer]ALE MAN Jose Oliver MD LAB - POINT OF CAR E ORDERABLES [facility] [address] [place] [address] * CYTOLOGY NON-NOODLE PRESS OPERATOR (06/02/2023 12:00 PM CDT) Only the most recent of2 resultswithin the time period is included. A Source Bladder wash [facility] A Gross Description [facility] Comment: The specimen is received with multiple patient identifier(s), labeled bladder wash and consists of 20 cc(s) of yellow fluid. One ThinPrep slide prepared and stained with Papanicolaou stain. ??Gross exam(s) performed at: [employer] [facility] ??[address] [facility] [address] ??Wooden Furniture Polisher: MD Ralph PADRON Diagnosis [facility] Comment: Atypical cells present of undetermined significance. Red blood cells present. Atypical urothelial cells present. Suggest clinically appropriate follow up. NO COLLECTION DATE RECEIVED. WE HAVE USED THE DATE THE SPECIMEN WAS RECEIVED BY THIS LABORATORY THE COLLECTION DATE. IF THIS IS INCORRECT, PLEASE CONTACT CLIENT SERVICES. PHONE NUMBER: [phone] Test Performed at: [employer] [address] ??[id number] TERE KO MD 05/29/2023 1:4 4 AM CDT Jose Oliver MD LAB - PATHOLOGY/CY TOLOGY ORDERABLES Performing Organization Address [facility]/State/[facility] Co de Phone Number [facility] [address] [place] [address] * CYTOLOGY NON-NOODLE PRESS OPERATOR PANEL (06/02/2023 12:00 PM CDT) Only the most recent of2 resultswithin the time period is included. Clinical Information [facility] Comment: Malignant neoplasm of urinary bladder, unspecified site Pathologist [facility] Comment: Elbert Chawla M.D., Board Certified in Anatomic Pathology and Clinical Pathology [phone] (electronic signature) Report Notes [facility] Comment: Sears portions of this case have been reviewed by one or more pathologists. Test Performed at: [employer] [address] ??[id number] TERE KO MD Pathology/Cytolog y 05/29/2023 1:44 AM CDT Jose Oliver MD LAB - PATHOLOGY/CY TOLOGY ORDERABLES [facility] [address] [place] [address] * ETT LINE PERFORMABLE (01/18/2023 9:30 AM ROLL SCALE MAN) Narrative Jayy Zheng Anes Asst - 01/18/2023 9:30 AM ROLL SCALE MAN Jayy Zheng Anes Asst ? 01/18/2023 ??9:31 AM Endotracheal Tube Placement: ? Patient Location: OR. Intubation Event Date/Time: ??01/18/2023 9:09 AM Procedure: intubation (26433). Procedure Section: ?? Sedation: under general anesthesia. Indications for Airway Management: ??anesthesia Induction: standard IV Patient Position: ??sniffing Mask Ventilation: easy. Blade Type: Rico Blade Size: 2 Laryngoscopy View: grade 1 (full cords) Tube: endotracheal tube Placement: oral Tube type: cuff - inflated Tube Size (MM): 7 Cuff Inflated With: air Number of Attempts: 1. Placement Verified By: direct visualization, chest auscultation, CO2 detector, CO2 monitor and bilateral breath sounds CXR Findings: ETT in proper place. Tube secured with: ??adhesive tape. Dentition unchanged? ??Yes Difficult Airway? ??No. Procedure Start Time: 01/18/2023 9:09 AM. Staff Section ? Anesthesia Provider: Jayy Zheng Anes Asst, Performed the procedure ? Provider #1: Jana Wheatley, . ? Provider #2: Alicja Weaver MD. Additional Comments: Atraumatic intubation no change in dentition or soft tissue of aw after dl. ??Blood noted in oropharynx but not peritracheal.. Alicja Weaver MD GENERAL ANESTHESIA ORDERABLES * LARYNGEAL MASK AIRWAY (01/18/2023 9:28 AM ROLL SCALE MAN) Narrative Jayy Zheng Anes Asst - 01/18/2023 9:28 AM ROLL SCALE MAN Jayy Zheng Anes Asst ? 01/18/2023 ??9:39 AM LMA Placement Procedure/LDA Note: Patient Location: OR. LMA Insertion Date/Time: ??01/18/2023 9:00 AM Procedure: LMA. Induction: standard IV Mask Ventilation: easy Type: ??LMA Size: ??4 Number of Attempts: 1. Placement verified by: bilateral breath sounds, chest auscultation and CO2 monitor Dentition unchanged? ??Yes Procedure Start Time: 01/18/2023 9:00 AM. Staff Section ? Anesthesia Provider: Jayy Zheng Anes Asst, Performed the procedure ? Provider #1: Alicja Weaver MD. Additional Comments: LMA placed atraumatically. ??No change in dentition or soft tissue after placement. ??Min cuff to seal.. Alicja Weaver MD GENERAL ANESTHESIA ORDERABLES * CARDIAC RHYTHM STRIP ORDER (03/26/2022 11:43 PM CDT) Narrative 03/26/2022 11:43 PM CDT Ordered by an unspecified provider. Scanned Document CARDIAC SERVICES ORD ERABLES * PATHOLOGY TISSUE EXAM (STL) (03/23/2022 8:11 AM CDT) Case Report Surgical Pathology Report ? Case: [id number] ? Authorizing Provider: ??Jose Oliver MD ?Collected: ? 03/23/2022 08:11 AM ? Ordering Location: ? [facility] ? Received: ?03/23/2022 08:51 AM ? Pathologist: ? Kenan Maria MD ? Specimen: ?Bladder Mass, BLADDER TUMOR ? 03/24/2022 4:30 PM [facility] Final Diagnosis Urinary bladder, transurethral resection of bladder tumor: 1. Negative for malignancy 2. Acute and chronic inflammation, fibrosis, and dystrophic calcification consistent with biopsy site changes 3. Detrusor muscle present, negative for tumor invasion 03/24/2022 4:30 PM [facility] Clinical History Bladder mass 03/24/2022 4:30 PM [facility] Gross Description The requisition and specimen are identified with patient's name and date of . Received in formalin, specimen A, bladder tumor aggregate of hawthorne-pink hawthorne soft tissues, 1.5 x 1.5 x 0.3 cm. Entirely submitted in cassette A1. LJ 03/24/2022 4:30 PM [facility] Microscopic Description Immunostain for pancytokeratin (control appropriate) is negative for tumor. Residual surface urothelium has manager risk maturation. 03/24/2022 4:30 PM [facility] Disclaimer All histochemical and/or immunohistochemical results are interpreted with controls that demonstrate appropriate staining reactions before reporting results. Note on use of immunocytochemistry reagents: This test was developed and its performance characteristic determined by [facility], Department of Laboratory Medicine. It has not been cleared or approved by the U.S. Food and Drug Administration (FDA). The FDA has determined that such clearance or approval is not necessary. The test is used for clinical purpose. It should not be regarded as investigational or for research. This laboratory is certified to perform high complexity testing. The performance characteristics of the IHC/RAQUEL assays have been validated on formalin-fixed paraffin embedded tissues only. The assays have not been validated on decalcified tissues. Results should be interpreted with caution. 03/24/2022 4:30 PM CDT [facility] Embedded Images 03/24/2022 4:30 PM CDT [facility] Pathology/Cytolo gy MASS OF URINARY BLADDER / Unknown 03/23/2022 8:11 AM CDT 03/23/2022 8:51 AM CDT Comment:Pre-op diagnosis: Diagnosis unknown [R69] Jose Oliver MD LAB - PATHOLOGY/AIDAN MUNOZ ORDERABLES [facility] [address] [place], [place] [id number] * ETT LINE PERFORMABLE (03/23/2022 7:46 AM CDT) Narrative Wilfred Delgado APRN-CRNA - 03/23/2022 7:46 AM CDT Wilfred Delgado APRN-CRNA ? 03/23/2022 ??7:46 AM Endotracheal Tube Placement: ? Patient Location: OR. Intubation Event Date/Time: ??03/23/2022 7:40 AM Procedure: intubation (31162). Procedure Section: ?? Sedation: under general anesthesia. Indications for Airway Management: ??anesthesia Induction: standard IV Patient Position: ??sniffing Mask Ventilation: easy with oral airway. Blade Type: Uyen Blade Size: 3 Laryngoscopy View: grade 1 (full cords) Intubation Adjuncts: stylet Tube: endotracheal tube Placement: oral Tube type: cuff - inflated Tube Size (MM): 7 Depth of Insertion (CM): 23 Measured From: lips Cuff Inflated With: air Number of Attempts: 1. Placement Verified By: direct visualization, bilateral breath sounds, chest auscultation and CO2 monitor CXR Findings: ETT in proper place. Tube secured with: ??adhesive tape. Dentition unchanged? ??Yes Difficult Airway? ??No. Procedure Start Time: 03/23/2022 7:40 AM. Staff Section ? Anesthesia Provider: Wilfred Delgado APRN-CRNA, Performed the procedure Mary Hughes MD GENERAL ANESTHESIA O RDERABLES * (ABNORMAL) URINALYSIS NO MICROSCOPIC NO CULTURE (03/11/2022 10:45 AM CDT) Color UA ORANGE(A) YELLOW [facility] Comment: The above test was performed; however, evaluate chemical results with caution due to possible interference from specimen color. Confirmatory testing was performed for glucose, bilirubin, and specific gravity. Appearance TURBID(A) CLEAR [facility] Specific [place] UA 1.027 1.001 - 1.035 [facility] pH UA < OR = 5.0 5.0 - 8.0 [facility] Glucose UA TRACE(A) NEGATIVE [facility] Bilirubin UA NEGATIVE NEGATIVE [facility] Ketone UA NEGATIVE NEGATIVE [facility] Blood UA 3+(A) NEGATIVE [facility] Protein UA 2+(A) NEGATIVE [facility] Nitrite UA NEGATIVE NEGATIVE [facility] Leukocyte UA 2+(A) NEGATIVE [facility] Comment: Test Performed at: [employer] [address] [place] [address] ??[id number] JESSICA MANLEY DO,MPH Urine URINE SPECIMEN OBTAINED BY CLEAN CATCH PROCEDURE / Unknown 03/11/2022 10:45 AM CDT 03/11/2022 10:46 AM CDT Jose Oliver MD LAB - URINALYSIS O RDERABLES [facility] [address] [place] [address] * PATH CONSULT ON REFERRED CASE (02/13/2022 8:57 AM CDT) Final Diagnosis A. Urinary bladder, transurethral resection, (OSC: [id number]; 01/21/2022): - Invasive urothelial cell carcinoma, high-grade - No definitive detrusor muscle seen B. Urinary bladder, left ureteral orifice transurethral resection, (OSC: [id number]; 01/21/2022): - Invasive urothelial cell carcinoma, high-grade - Detrusor muscle present, negative for tumor invasion 02/16/2022 1:52 PM CDT [facility] Microscopic Description and Comment Performed. 02/16/2022 1:52 PM CDT [facility] Clinical History 02/16/2022 1:52 PM CDT [facility] Materials Received Received are 3 slide(s) labeled [id number] along with a copy of the outside pathology report. The materials originate from [facility], Department of Pathology, [address] [place] [address], [address]. All original materials are returned to the referring institution, along with a copy of our final report. 02/16/2022 1:52 PM CDT [facility] Disclaimer The performance characteristics of all immunohistochemical and indirect immunofluorescence stains (if any) cited in this report were determined by the Histopathology Laboratory of [facility]. Some of these tests were developed by our own laboratory and have not been cleared or approved by the US Food and Drug Administration. The FDA does not require this test to go through premarket FDA review. These tests are used for clinical purposes. They should not be regarded as investigational or for research. This laboratory is certified under the Clinical Laboratory Improvement Amendments (CLIA) as qualified to perform high complexity clinical laboratory testing. This case has been personally reviewed and interpreted by the attending (teaching) pathologist. 02/16/2022 1:52 PM T [facility] PATH[facility] Case Report Surgical Pathology Report ? Case: [id number] ? Authorizing Provider: ??Jose Oliver MD ?Collected: ? 02/13/2022 08:57 AM ? Ordering Location: ? [facility] ? Received: ?02/13/2022 08:57 AM ? Pathologist: ? Gian Jay MD ? Specimen: ?Slide Consultation ? 02/16/2022 1:52 PM CDT [facility] PATH[facility] Embedded Images 02/16/2022 1:52 PM CDT [facility] Pathology/Cytolo gy SURGICAL PATHOLOGY CONSULTATION AND REPORT ON REFERRED SLIDES PREPARED ELSEWHERE / Unknown 02/13/2022 8:57 AM CDT 02/13/2022 8:57 AM CDT Jose Oliver MD LAB - PATHOLOGY/CY TOLOGY ORDERABLES Performing Organization Address City/State/[facility] Co de Phone Number [facility] [address] [phone] * ECHO COMPLETE W BUBBLE STUDY (12/31/2021 9:47 AM ROLL SCALE MAN) Anatomical Region Laterality Modality Chest Echo 12/31/2021 9:07 AM ROLL SCALE MAN Narrative Procedure Note Campos Fraga MD - 01/08/2022 Hollis Mccall MD ECHOCARDIOGRAPHY RAD IANT * DNKBZ-2-GUDGVKBGDPK BLOOD PHENOTYPING PANEL (12/02/2021 10:26 AM ROLL SCALE MAN) Kwzab-3-Wtnirrryka n Phenotype M2M2 12/05/2021 5:33 PM ROLL SCALE MAN [employer] ([facility]) Comment: The patient appears to have a normal phenotype. All M alleles (including subtypes M1, M2, and M3) produce normal serum concentrations of wtafe-5-qpdfuumv inhibitor and are not associated with clinical disease. Caution in interpretation is advised if the patient has been transfused within the previous 21 days. Performed By: [employer] [address] [place] [address] [employer] Furn[employer]isher: Starr Boswell MD Ahibf-2-Oydigqwigw n 151 90 - 200 mg/dL 12/05/2021 5:33 PM ROLL SCALE MAN [employer] ([facility]) Comment:To convert to umol/L , multiply mg/dL by 0.185 Blood BLOOD SPECIMEN / Unknown Lab Venipuncture / Unknown 12/02/2021 10:26 AM RO[employer]ALE MAN 12/02/2021 11:13 AM ROLL SCALE MAN Hollis Mccall MD LAB - CHEMISTRY BASSAM CONTRERAS [facility]) [address] [place], [place] [address] * ANOKF-9-XKIIDUYDRED BLOOD (12/02/2021 10:26 AM [facility]) Xnpqm-3-Dtuxyo ypsin 164 90 - 200 mg/dL 12/02/2021 12:30 PM [facility] Blood BLOOD SPECIMEN / Unknown Lab Venipuncture / Unknown 12/02/2021 10:26 AM [facility] 12/02/2021 11:13 AM ROLL SCALE MAN Hollis Mccall MD LAB - CHEMISTRY BASSAM CONTRERAS [facility] [address] [place] [address], [facility] [phone] * LDL CHOLESTEROL DIRECT (12/02/2021 10:26 AM [facility]) Only the most recent of2 resultswithin the time period is included. LDL Direct 95 <100 mg/dL 12/02/2021 12:15 PM [facility] Comment: ATP III Classification of LDL Cholesterol: ?<100 mg/dL: ??Optimal ? 100 - 129 mg/dL: ??Near Optimal/Above Optimal ? 130 - 159 mg/dL: ??Borderline High ? 160 - 189 mg/dL: ??High ?>190 mg/dL: ??Very High Blood BLOOD SPECIMEN / Unknown Lab Venipuncture / Unknown 12/02/2021 10:26 AM [employer]ALE MAN 12/02/2021 11:31 AM ROLL SCALE MAN Monica Quijano MD LAB - CHEMISTRY ORD ERABLES [facility] [address] [place] [address], [place] [phone] * (ABNORMAL) LIPID PROFILE (12/02/2021 10:26 AM ROLL SCALE MAN) Only the most recent of3 resultswithin the time period is included. Cholesterol Total 209(H) <200 mg/dL 12/02/2021 11:59 AM [facility] HDL 38(L) >40 mg/dL 12/02/2021 11:59 AM [facility] Comment: ATP III Classification of HDL Cholesterol: ? <40 mg/dL: ??Considered a major risk factor. ? >60 mg/dL: ??Considered a negative risk factor. ? LDL Calculated 12/02/2021 11:59 AM [facility] Comment:Calculation of LDL v alue was not performed because triglyceride concentrations greater than 400 mg/dL render the calculated value invalid. For this reason, the LDL Direct assay for measurement of LDL Cholesterol has been performed (per laboratory protocol). Triglycerides 544(H) <150 mg/dL 12/02/2021 11:59 AM [facility] Comment: ATP III Classification of Triglycerides: ?<150 mg/dL: ??Normal ? 150 - 199 mg/dL: ??Borderline High ? 200 - 400 mg/dL: ??High ?>500 mg/dL: ??Very High Blood BLOOD SPECIMEN / Unknown Lab Venipuncture / Unknown 12/02/2021 10:26 AM [employer]ALE MAN 12/02/2021 11:31 AM ROLL SCALE MAN Monica Quijano MD LAB - CHEMISTRY ORD ERABLES [facility] [address] [place] [address], [place] [phone] * OPH OCT TEST [facility] (12/02/2021 9:29 AM ROLL SCALE MAN) Anatomical Region Laterality Modality Other 12/02/2021 9:29 AM ROLL SCALE MAN Tyrone Zuniga MD [facility] ORDERABLES * (ABNORMAL) DRUG SCREEN TOX URINE PANEL (IN HOUSE) (10/06/2021 4:17 PM ROLL SCALE MAN) Amphetamines Screen Urine Negative Negative : < 1000 ng/mL 10/06/2021 5:04 PM [facility] Barbiturates Screen Urine Negative Negative : < 200 ng/mL 10/06/2021 5:04 PM [facility] Benzodiazepine Screen Urine Positive(A) Negative : < 200 ng/mL 10/06/2021 5:04 PM [facility] Comment: Positive urine benzodiazepine screening results should be confirmed by another generally accepted non-immunological method such as gas chromatography or mass spectrometry. ? Opiates Urine Positive(A) Negative : < 300 ng/mL 10/06/2021 5:04 PM [facility] Comment:Positive urine opiat e screening results should be confirmed by another generally accepted non-immunological method such as gas chromatography or mass spectrometry. Cocaine Metabolites Urine Negative Negative : < 300 ng/mL 10/06/2021 5:04 PM [facility] Phencyclidine Screen Urine Negative Negative : < 25 ng/ml 10/06/2021 5:04 PM [facility] Cannabinoids Screen Urine Positive(A) Negative : <50 ng/mL 10/06/2021 5:04 PM [facility] Comment:Positive urine canna binoids (THC) screening results should be confirmed by another generally accepted non-immunological method such as gas chromatography or mass spectrometry. Methadone Screen Urine Negative Negative : < 300 ng/mL 10/06/2021 5:04 PM [facility] Fentanyl Screen Urine Negative Negative : <1.0 ng/mL 10/06/2021 5:04 PM [facility] Urine URINE / Unknown Collection / Unknown 10/06/2021 4:17 PM ROLL SCALE MAN 10/06/2021 4:34 PM ROLL SCALE MAN Narrative [facility] - 10/06/2021 5:04 PM ROLL SCALE MAN The Urine Toxicology Screening Panel does not screen for Propoxyphene, Meprobamate, Carisoprodol, Trazodone, btoo-gch-lbtndyp medications and/or volatiles (Acetone, Isopropanol, Methanol or Ethylene Glycol). Ethanol, Salicylate, Acetaminophen, Tricyclic Antidepressants and several therapeutic drugs may be individually assayed in serum or plasma specimen. Toxicology testing by the [facility] is an aid to medical diagnosis and treatment of patients. No documented chain of custody was maintained. Results are intended to be used for clinical purposes only. ? Nicole Singletary DO LAB - URINE CHEMISTR Y ORDERABLES Performing Organization Address [facility] de Phone Number [address] [address], [facility] [phone] * TSH REFLEX FREE T4 (10/06/2021 4:00 PM ROLL SCALE MAN) TSH 2.406 0.350 - 4.940 uIU/mL 10/06/2021 5:17 PM ROLL SCALE MAN [facility] Blood BLOOD SPECIMEN / Unknown Lab Venipuncture / Unknown 10/06/2021 4:00 PM ROLL SCALE MAN 10/06/2021 4:34 PM ROLL SCALE MAN Nicole Singletary DO LAB - CHEMISTRY BASSAM CONTRERAS Performing Organization Address [facility] Co de Phone Number [address] [place] [address], [facility] [phone] * VITAMIN D 25-HYDROXY (10/06/2021 4:00 PM ROLL SCALE MAN) [facility] Vitamin D, 25 Hydroxy 30.0 30.0 - 80.0 ng/mL 10/06/2021 5:17 PM ROLL SCALE MAN [facility] Comment: The recommendations for 25-Hydroxy Vitamin D clinical decision points are as follows: ? Deficient: ? <20.0 ng/mL ? Insufficient: ??20.0 - 29.9 ng/mL ? Sufficient: ? > or =30.0 ng/mL If the 25-Hydroxy Vitamin D results are inconsitent with clinical evidence, it is recommended that follow-up testing using a method such as LC/MS/MS be performed to confirm the result. Reference: ?The Endocrine Society Clinical Practice Guidelines. 2011 ? Blood BLOOD SPECIMEN / Unknown Lab Venipuncture / Unknown 10/06/2021 4:00 PM ROLL SCALE MAN 10/06/2021 4:34 PM ROLL SCALE MAN Nicole Singletary DO LAB - CHEMISTRY BASSAM CONTRERAS [address] [address], [facility] [phone] * (ABNORMAL) COMPREHENSIVE METABOLIC PANEL (10/06/2021 4:00 PM ROLL SCALE MAN) [facility] BUN 18 7 - 26 mg/dL 10/06/2021 4:59 PM ROLL SCALE MAN [facility] Creatinine 0.97(H) 0.56 - 0.96 mg/dL 10/06/2021 4:59 PM ROLL SCALE MAN [facility] Sodium 140 136 - 145 mmol/L 10/06/2021 4:59 PM [facility] Potassium 3.5 3.5 - 4.5 mmol/L 10/06/2021 4:59 PM [facility] Chloride 104 98 - 107 mmol/L 10/06/2021 4:59 PM [facility] CO2 27 22 - 29 mmol/L 10/06/2021 4:59 PM [facility] Glucose 124(H) 70 - 115 mg/dL 10/06/2021 4:59 PM [facility] Calcium 9.3 8.4 - 10.2 mg/dL 10/06/2021 4:59 PM [facility] Protein Total 6.7 6.0 - 8.3 g/dL 10/06/2021 4:59 PM [facility] Albumin 3.3(L) 3.4 - 5.0 g/dL 10/06/2021 4:59 PM [facility] Bilirubin Total 0.2 0.2 - 1.2 mg/dL 10/06/2021 4:59 PM [facility] Alkaline Phosphatase 78 40 - 150 U/L 10/06/2021 4:59 PM [facility] ALT 16 5 - 55 U/L 10/06/2021 4:59 PM [facility] AST 11 5 - 34 U/L 10/06/2021 4:59 PM [facility] Anion Gap 13 8 - 18 10/06/2021 4:59 PM [facility] BUN/Creatinine Ratio 19 7 - 23 10/06/2021 4:59 PM [facility] Osmolality Calculated 293 270 - 300 mOsm/kg 10/06/2021 4:59 PM [facility] Albumin/Globulin Ratio 1.0(L) 1.1 - 2.3 10/06/2021 4:59 PM [facility] eGFR by CKD-EPI 64(L) >=90 mL/min/1.7 3 m2 10/06/2021 4:59 PM [facility] Blood BLOOD SPECIMEN / Unknown Lab Venipuncture / Unknown 10/06/2021 4:00 PM [facility] 10/06/2021 4:34 PM [facility] Nicole Singletary DO LAB - CHEMISTRY [facility] [address] [place] [address], [facility] [phone] * (ABNORMAL) BLOOD GASES ART+COOX POCT (10/06/2021 1:38 PM [facility]) pH Arterial 7.44 7.35 - 7.45 pH 10/06/2021 1:38 PM [facility] pO2 Arterial 78(L) 80 - 100 mmHg 10/06/2021 1:38 PM [facility] pCO2 Arterial 44 35 - 45 mmHg 1:38 PM [facility] BE Arterial 5.0(H) -2.0 - 2.0 mmol/L 10/06/2021 1:38 PM [facility] Oxyhemoglobin Arterial 91.5 % 10/06/2021 1:38 PM [facility] Dexoyhemoglobin (HHB) % 1.9 % 10/06/2021 1:38 PM [facility] O2 Content Arterial 17.5 Interpret within clinical context mg/dL 10/06/2021 1:38 PM [facility] Hemoglobin by COOX 13.6 12.0 - 15.6 g/dL 10/06/2021 1:38 PM [facility] O2 Saturation Arterial 98 90 - 100 % 10/06/2021 1:38 PM [facility] HCO3 Arterial 30 20 - 30 mmol/l 10/06/2021 1:38 PM [facility] Methemoglobin 0.8 0.0 - 2.0 % 10/06/2021 1:38 PM [facility] Carboxyhemoglobin 5.9(H) 0.0 - 2.0 % 2020 1:38 PM [facility] Comment:Carboxyhemoglobin No rmal Concentration: Non-smokers: 0-2%; Smokers: 0- 9%; Toxic: >20% Blood, arterial ARTERIAL BLOOD SPECIMEN / Unknown 10/06/2021 1:38 PM [facility] 10/06/2021 1:39 PM [facility] Damian Hager MD LAB - POINT OF CARE ORDERABLES [facility] [address] [place] [address], [facility] [phone] * PFT OXYGEN DESATURATION STUDY (10/06/2021 1:05 PM [facility]) Impressions Rose Marie Oro MD - 10/06/2021 1:05 PM [facility] DEPARTMENT OF PULMONARY, CRITICAL CARE, AND SLEEP MEDICINE OXYGEN TITRATION STUDY Rody Zaidi 10/11/2021 INTERPRETATION The test was performed free walking on room air with starting SpO2 of 98%. ??The patient was able to complete 4 minutes with lowest SpO2 of 96%. ??Total distance was 189 meters. IMPRESSION 1. At the above level of activity the patient's oxygen saturation remained above 96% on room air. Darlene Benson MD (fellow) Pulmonary & Critical Care I have personally reviewed and intepreted the results of the study and made any necessary edits to the final impression of the fellow. Rose Marie Oro MD Narrative Rose Marie Oro MD - 10/06/2021 1:05 PM [facility] Mary Benson MD ? 10/11/2021 ??4:46 PM Damian Hager MD PFT ORDERABLES * SIX MINUTE WALK (10/06/2021 1:05 PM [facility]) Impressions Rose Marie Oro MD - 10/06/2021 1:05 PM [facility] DEPARTMENT OF PULMONARY, CRITICAL CARE, AND SLEEP MEDICINE SIX MINUTE WALK TEST Rody Moon Dyan 10/11/2021 Interpretation: The patient walked for 6 minutes on room air and covered total distance of 132 meters. On the Reshma scale at baseline, reported dyspnea was 3 and fatigue was 3. ??At the end of the study, the Reshma reported dyspnea was 5 and fatigue was 4. Additional symptoms included SOB, back and calf pain. No hypoxia noted during test IMPRESSION: 1. Total 6 minute walk distance is 132 meters, which is lower than the lower limit of normal of 302 meters for this patient. 2. No prior study for comparison. Darlene Benson MD Pulmonary and Critical Care Fellow I have personally reviewed and intepreted the results of the study and made any necessary edits to the final impression of the fellow. Rose Marie Oro MD Narrative Rose Marie Oro MD - 10/06/2021 1:05 PM [facility] Mary Benson MD ? 10/11/2021 ??4:46 PM Damian Hager MD RESPIRATORY THERAPY ORDERABLES * COMPLETE PFT W/WO BRONCHODILATOR (10/06/2021 1:05 PM [facility]) Impressions Rose Marie Oro MD - 10/06/2021 1:05 PM [facility] DEPARTMENT OF PULMONARY, CRITICAL CARE, AND SLEEP MEDICINE PULMONARY FUNCTION TEST Please see technologist's comments mentioned in the report. INTERPRETATION: SPIROMETRY: ?FVC: normal ?FEV1: decreased ?FEV1/FVC ratio is decreased. (This data is based on the best response by the patient, including pre- bronchodilator and post-bronchodilator.) BRONCHODILATOR RESPONSE: There is no response to bronchodilator administration FLOW-VOLUME LOOPS: Small flow-volume loops LUNG VOLUMES: Lung volumes by body plethysmography showed increased RV DLCO: Unadjusted for Hb and COHb is Normal DLCO: Corrected for Hb and COHb is: Normal AIRWAY RESISTANCE: The airway resistance is normal and the specific conductance is decreased ARTERIAL BLOOD GAS ANALYSIS: Drawn on Room Air Revealed normal oxygenation Normal acid-base balance IMPRESSION: 1. Mild Obstructive Ventilatory Limitation 2. Normal DLCO. Significant air trapping without hyperinflation. 3. No positive bronchodilator response, however this does not preclude the use of bronchodilators 4. There is no previous study available for comparison Darlene Benosn M.D. Division of Pulmonary, Critical Care, & Sleep Medicine [facility] [employer] I have personally reviewed and intepreted the results of the study and made any necessary edits to the final impression of the fellow. Rose Marie Oro MD Narrative Rose Marie Oro MD - 10/06/2021 1:05 PM [facility] Mary Benson MD ? 10/11/2021 ??4:46 PM Damian Hager MD RESPIRATORY THERAPY ORDERABLES * CARDIAC PROCEDURE ORDER (11/02/2020 4:17 PM [facility]) Narrative 11/02/2020 4:17 PM [facility] Ordered by an unspecified provider. Scanned Document CARDIAC SERVICES ORD ERABLES * CCL CARDIAC CATH LEFT (10/24/2020 10:29 AM [facility]) Anatomical Region Laterality Modality Chest X-Ray Angiograph y Narrative 11/05/2020 4:[address] [facility] [facility] Cardiac Catheterization Procedure Note Patient: Rody Zaidi Age: [age] year old Date of : 1960 Date of Admission: 10/24/2020 Procedure Date: 10/24/20 FELLOW / SECURITY AND COMPLIANCE PROJECT MANAGER: Mart Clinton ATTENDING PHYSICIAN: Dr. Deven Cook. PREVIOUS STRESS STUDIES WITHIN 6 MONTHS: None DIAGNOSTIC APPROPRIATENESS CRITERIA: U (6) Indication: 22; Score 6 HISTORY: She??is a pleasant 59 year old??female??with a history of PVD (s/p BL iliac stenting, L CEA, R??), DMII, active tobacco use. ??Patient reports 6 months of chest pain. She is on two antianginal and still had chest pain with dyspnea. Coming for [facility] for evaluation. Also reported abnormal test in past but no image or report available. Per outside casualty insurance claim adjuster Stress test done in 01/2020 was clinically and electrocardiographically negative. SPECT images reported mild fixed defect in the inferior wall with normal wall motion SEDATION: Moderate sedation on this adult patient was ordered by Dr. Deven Cook., administered intravenously in their presence, and monitored by the procedure nurse as an independent trained observer who was present throughout the procedure. The following parameters were monitored: oxygen saturation, heart rate, blood pressure, and response to care. Intra-service sedation start time was 0832 and end time was 1007 during which the attending was present. Total physician intra-service sedation time was 95 minutes. For details on pre-moderate sedation and post-moderate sedation patient evaluation, please review the evaluation forms in [facility]. For details on monitored clinical parameters during the intra-service sedation time, please review the procedure nurse documentation in [facility]. Total sedation administered as follows: ??25 mcg IV fentanyl, 0.5 mg IV midazolam, and 0 mg IV benadryl. 10 ml of 1% lidocaine was administered subcutaneously at the access site. TOTAL CONTRAST USED (Isovue 370): 80 ml RADIATION: ?? AK: 304 mGY ? DAP: 30.865 cGym2 TOTAL BLOOD LOSS: 30 ml ACCESS SITE(S): ?? right radial artery and right femoral artery PROCEDURAL OVERVIEW: After obtaining informed consent and positioning the patient on the catheterization table, a timeout was performed to confirm the patient? s name, date of , and procedure. ??Sedation was initiated and the patient was prepped and draped using standard sterile technique. ?? Lidocaine was used for local anesthesia over the access site, after which the vessel was accessed and a sheath was placed using the modified Seldinger technique. ??Access was uncomplicated. Radial artery was tortious and access was switched to femoral access. Coronary angiography was performed using FL4 and FR4 and 6Fr catheter(s). ??Left heart catheterization was performed using FR4 catheter. At the conclusion of the procedure, hemostasis was achieved using manual compression, a radial compression device and an Angioseal device after removal of all catheters, wires, and sheaths. ?? COMPLICATIONS: None HEMODYNAMIC FINDINGS: ?? 82/15 mmHg 85/65 mmHg ANGIOGRAPHY: ?i. ?Left main: Left main has no angiographically significant vessel. It divides into LAD, LCx and Ramus branches. ??ii. ?? LAD: Proximal LAD has 50-60% focal stenosis. Mild to distal LAD has mild disease. ??iii. ?? LCx: Dominant vessel. No significant disease in the proximal portion. Mid LCx has 30% stenosis. There is small caliber LPDA with mild disease. ??iv. ?? RCA: Non dominant, small caliber vessel with mild disease. ??v. ?Other angiography: Ramus intermedius: There is mild diffuse disease in the proximal RI.Mid Ramus has 30-40% stenosis before it divides into two branches. Remainder of Ramus has trivial disease. DFR OF THE Proximal LAD LESION: A XB 3 guide catheter was used for support. Heparin was given to achieve therapeutic ACT. A Opsens wire was advanced into the distal vessel. A Opsens pressure wire was equalized at the tip of the guide and advanced across the lesion into the distal LAD over the wire. DFR measured at 0.93. Pressure wire was removed and final angiography showed no evidence of dissection or perforation. DOMINANCE: Left DIAGNOSTIC INTERPRETATIONS: Borderline angiographic lesion in the Proximal LAD which was non significant by DFR Otherwise non obstructive CAD RECOMMENDATIONS AFTER DIAGNOSTIC CATHETERIZATION: ?? Medical management of nonobstructive CAD. Aspirin 81 mg QDAY indefinitely. Aggressive modification of atherosclerotic risk factors. Maximize antianginal therapy. Further recommendation as per Outpatient Cardiology team. Ld Altamirano MD 10/24/2020 I was present for the entirety of the described procedure. Deven Gonzalez MD Monica Quijano MD CARDIAC PRECIPITATION EQUIPMENT TENDER RA DIANT * VAS CAROTID DUPLEX BILATERAL (10/22/2020 9:27 AM [facility]) Anatomical Region Laterality Modality Neck Intravascular Ul trasound 10/22/2020 9:04 AM [facility] Narrative Procedure Note Eric Costa MD - 10/22/2020 Kendrick Tao MD VASCULAR LAB ORDERAB LES * VAS ARTERIAL ANKLE ARM INDEX (10/22/2020 9:03 AM [facility]) Only the most recent of2 resultswithin the time period is included. Anatomical Region Laterality Modality Ankle / Foot, Upper Extremity In travascular Ultrasound 10/22/2020 8:16 AM [facility] Narrative Procedure Note Eric Costa MD - 10/22/2020 Ruy Zendejas MD VASCULAR LAB ORDERAB LES * VAS DILEEP ABD DOPPLER AO IVC ILIAC (10/22/2020 9:02 AM [facility]) Only the most recent of2 resultswithin the time period is included. Anatomical Region Laterality Modality Pelvis, Abdomen Intravascular Ul trasound 10/22/2020 8:27 AM [facility] Narrative Procedure Note Eric Costa MD - 10/22/2020 Ruy Zendejas MD VASCULAR LAB ORDERAB LES * PT-INR (10/21/2020 8:12 AM [facility]) Pathologist [facility] INR 1.0 [facility] Comment: Reference Range ? 0.9-1.1 Moderate-intensity Warfarin Therapy 2.0-3.0 Higher-intensity Warfarin Therapy ?? 3.0-4.0 PT 10.1 9.0 - 11.5 sec [facility] Comment: For additional information, please refer to http://education.Nanigans/faq/CQT795 (This link is being provided for informational/ educational purposes only.) REPORT COMMENT: FASTING:YES Test Performed at: [employer] ??[id number] GISELE JUSTICE MD Blood BLOOD SPECIMEN / Unknown 10/21/2020 8:12 AM [facility] 10/21/2020 8:14 AM [facility] Monica Quijano MD LAB - COAGULATION O RDERABLES [address] [address] * CARDIAC EKG ORDER (10/03/2020 12:41 PM [facility]) Only the most recent of2 resultswithin the time period is included. Narrative 10/03/2020 12:41 PM [facility] Ordered by an unspecified provider. Scanned Document CARDIAC SERVICES ORD ERABLES * EKG - Clinic Performed (10/01/2020 9:43 AM [facility]) Monica Quijano MD ECG ORDERABLES * TROPONIN I (09/04/2020 11:24 AM CDT) Pathologist [facility] [place] Troponin I 0.025 <0.032 ng/mL 09/04/2020 12:05 PM CDT [facility] Blood BLOOD SPECIMEN / Unknown Venipuncture / Unknown 09/04/2020 11:24 AM CDT 09/04/2020 11:34 AM CDT Ruy Zendejas MD LAB - CHEMISTRY ORDE RABLES Performing Organization Address [facility] Co de Phone Number [facility] [address] [place] [address], [facility] [phone] * EKG 12-LEAD (09/04/2020 11:16 AM CDT) Ventricular Rate 80 BPM [facility] Atrial Rate 80 BPM [facility] P-R Interval 142 ms [facility] QRS Duration ms 86 ms [facility] Q-T Interval ms 392 ms [facility] QTC Calculation (Bezet) 452 ms [facility] MUSE Calculated P Elma 70 degrees [facility] Calculated R Elma 50 degrees [facility] Calculated T Elma 34 degrees [facility] Interpretation EKG NORMAL SINUS RHYTHM NORMAL ECG NO PREVIOUS ECGS AVAILABLE Confirmed by Jg Casey ([id number]) on 10/02/2020 11:20:55 AM [facility] 09/04/2020 11:1 6 AM CDT 10/02/2020 11:20 AM [facility] Ruy Zendejas MD ECG ORDERABLES Performing Organization Address [facility] Co de Phone Number [facility] * IR ANGIOGRAM LEFT LEG (09/04/2020 10:50 AM CDT) Anatomical Region Laterality Modality Lower Extremity X-Ray Angiograph y 09/05/2020 8:03 AM CDT Narrative 09/06/2020 11:05 AM CDT PRE-PROCEDURE DIAGNOSIS: 1. Peripheral vascular disease with left lower extremity short distance claudication POST-PROCEDURE DIAGNOSIS: 1. Peripheral vascular disease with left lower extremity short distance claudication 2. Left iliac stent occlusion PROCEDURE: 1. Ultrasound-guided percutaneous access of the bilateral common femoral arteries 2. Introduction of catheter into the aorta x2 3. Aortoiliofemoral angiogram 4. Left lower extremity angiogram 5. Left common iliac artery stent placement x2 ATTENDING: Kendrick Tao MD SECURITY AND COMPLIANCE PROJECT MANAGER: Ruy Zendejas MD ANESTHESIA: Moderate conscious sedation with local anesthesia INDICATIONS FOR PROCEDURE: This is a 59-year-old female with bilateral lower extremity short distance claudication that is worse on the left. She has a history of prior bilateral common iliac artery stents that were placed at an outside hospital. When seen in clinic she was found to have elevated velocities just distal to her left common iliac artery stent on vascular labs concerning for stenosis. Given her symptoms and risk of stent occlusion on this side, angiogram with possible intervention was recommended for which she presented today. PROCEDURE IN DETAIL: After obtaining informed consent, the patient was taken to the angiographic suite and placed on the imaging table in the supine position. The bilateral groins were prepped and draped in the usual sterile fashion. A timeout was performed verifying patient identity and procedure to be performed. Conscious sedation was administered and local anesthetic was infiltrated into the soft tissues of the right groin. Under ultrasound guidance, the right common femoral artery was accessed using a micropuncture needle. The needle was then exchanged for the micropuncture sheath over the microwire. The micropuncture sheath was then exchanged for a 5 Serbian sheath over the provided J-wire. A Glidewire was then advanced through the sheath up into the infrarenal aorta. An Omni Flush catheter was advanced over the wire and positioned with its tip in the infrarenal aorta. The wire was withdrawn and an aortoiliofemoral angiogram was performed with findings as noted below including an occluded left common iliac artery and stent with reconstitution at the left iliac bifurcation. The decision was then made to attempt crossing this lesion via the left groin. Local anesthetic was infiltrated into the soft tissues of the left groin. Under ultrasound guidance, the left common femoral artery was accessed with a micropuncture needle. This was then exchanged for a micropuncture sheath using the provided microwire. The micropuncture sheath was then exchanged for a 5 Serbian sheath over a J-wire. A Glidewire and angled glide catheter were then used to attempt crossing the occluded left common iliac artery from below. However, this was initially unsuccessful as it had appeared that the wire and catheter were tracking into a dissection plane in the rosebud distal left common iliac artery. Crossing from above was then attempted via the right groin using a Glidewire and the Omni Flush catheter over the aortic bifurcation. This was unsuccessful. A rim catheter was also used to attempt crossing the lesion from above and this, too, was unsuccessful. It was again attempted to cross the lesion from below via the left groin with the back of the Glidewire without success. For increased support, the left groin 5 Serbian sheath was exchanged for a longer 5 Serbian sheath. The back of the Glidewire and angled glide catheter were then used to again attempt crossing the lesion from below. Ultimately, the lesion was able to be crossed and the Glidewire advanced from the left side into the infrarenal aorta. The glide catheter was advanced into the infrarenal aorta from the left and aortogram performed to verify intraluminal position. The decision was then made to proceed with treating this lesion by restenting the left common iliac artery and extending it to the iliac bifurcation. An Amplatz wire was advanced via the left groin up into the infrarenal aorta. The glide catheter was withdrawn and the left groin 5 Serbian sheath was exchanged for a 7 Serbian sheath. In order to prevent jailing of the right common iliac artery and stent, the decision was made to place a balloon in the right common iliac artery and stent with plans to insufflate this in tandem with deployment of the new stent on the left. The wire on the right was exchanged for an Amplatz wire in the right groin 5 Serbian sheath was exchanged for a 6 Serbian sheath. A 9 mm x 40 mm Osprey balloon was then advanced via the right groin up into the right common iliac artery stent. A 10 mm x 38 mm balloon expandable covered Icast stent was then advanced via the left groin into the left common iliac artery stent. This stent was then balloon deployed while insufflating the balloon on the right in tandem. The balloons were then deflated. The stent deployment balloon on the left was then withdrawn and an 8 mm x 38 mm balloon expandable covered Icast stent was then advanced into the left common iliac artery just distal to this previously placed stent. The stent was then balloon deployed and the deployment balloon was withdrawn. The balloon on the right was also withdrawn. The Omni Flush catheter was then advanced into the infrarenal aorta and completion aortoiliofemoral angiography was performed with findings as noted below and no concerning findings necessitating further intervention. The left groin 7 Serbian sheath was exchanged for a short 7 Serbian sheath. The wires were withdrawn and Mynx closure devices were deployed in the bilateral groins for closure after bilateral sheath removal. Manual pressure was applied to the bilateral groins for 5 minutes to achieve hemostasis. After this period of time both groins were without active bleeding and no hematoma. The bilateral groin access sites were then dressed with dry gauze and Tegaderm. The patient tolerated the procedure well and was taken back to the holding area in stable condition. COMPLICATIONS: None FLUOROSCOPY TIME: 26.5 minutes CONTRAST: 100 mL Isovue-300 SEDATION: Total sedation time was 100 minutes. A total of 200 mcg of IV fentanyl and 4 mg of IV Versed were administered. ANGIOGRAPHIC FINDINGS: Pre-intervention: Patent infrarenal aorta. Bilateral common iliac artery stents noted in place. Patent right common iliac, external iliac, and internal iliac arteries. Occluded left common iliac artery and stent. Reconstitution of the patent left external and internal iliac arteries. Patent left common femoral, superficial femoral and profunda arteries. Patent left popliteal artery. Three-vessel runoff in the left lower leg with 2 vessels into the left foot via the left anterior tibial and posterior tibial arteries. Post-intervention: Patent left common iliac artery status post stent placement x2 with no residual stenosis. This report was approved ??by Ruy Zendejas ?? on 09/05/2020 8:39 AM . I, Dr. KENDRICK TAO M.D. have personally reviewed and interpreted this examination/study. This report was electronically signed by KENDRICK TAO M.D. ??on 09/06/2020 11:05 AM . Procedure Note Kendrick Tao MD - 09/06/2020 PRE-PROCEDURE DIAGNOSIS: 1. Peripheral vascular disease with left lower extremity short distance claudication POST-PROCEDURE DIAGNOSIS: 1. Peripheral vascular disease with left lower extremity short distance claudication 2. Left iliac stent occlusion PROCEDURE: 1. Ultrasound-guided percutaneous access of the bilateral common femoral arteries 2. Introduction of catheter into the aorta x2 3. Aortoiliofemoral angiogram 4. Left lower extremity angiogram 5. Left common iliac artery stent placement x2 ATTENDING: Kendrick Tao MD SECURITY AND COMPLIANCE PROJECT MANAGER: Ruy Zendejas MD ANESTHESIA: Moderate conscious sedation with local anesthesia INDICATIONS FOR PROCEDURE: This is a 59-year-old female with bilateral lower extremity short distance claudication that is worse on the left.She has a history of prior bilateral common iliac artery stents that were placed at an outside hospital. When seen in clinic she was found to have elevated velocities just distal to her left common iliac artery stent on vascular labs concerning for stenosis. Given her symptoms and risk of stent occlusion on this side, angiogram with possible intervention was recommended for which she presented today. PROCEDURE IN DETAIL: After obtaining informed consent, the patient was taken to the angiographic suite and placed on the imaging table in the supine position. The bilateral groins were prepped and draped in theusual sterile fashion. A timeout was performed verifying patient identity and procedure to be performed. Conscious sedation was administered and local anesthetic was infiltrated into the soft tissues of the right groin.Under ultrasound guidance, the right common femoral artery was accessed usinga micropuncture needle. The needle was then exchanged for themicropuncture sheath over the microwire. The micropuncture sheath was then exchangedfor a 5 Serbian sheath over the provided J-wire. A Glidewire was thenadvanced through the sheath up into the infrarenal aorta. An Omni Flush catheter was advanced over the wire and positioned with its tip in the infrarenal aorta. The wire was withdrawn and an aortoiliofemoral angiogram was performed with findings as noted below including an occluded left common iliac artery and stent with reconstitution at the left iliacbifurcation. The decision was then made to attempt crossing this lesion via the left groin. Local anesthetic was infiltrated into the soft tissues of theleft groin. Under ultrasound guidance, the left common femoral artery was accessed with a micropuncture needle. This was then exchanged for a micropuncture sheath using the provided microwire. The micropuncture sheath was then exchanged for a 5 Serbian sheath over a J-wire. AGlidewire and angled glide catheter were then used to attempt crossing theoccluded left common iliac artery from below. However, this was initially unsuccessful as it had appeared that the wire and catheter were tracking into a dissection plane in the rosebud distal left common iliac artery. Crossing from above was then attempted via the right groin using a Glidewire and the Omni Flush catheter over the aortic bifurcation. This was unsuccessful. A rim catheter was also used to attempt crossing the lesion from above and this, too, was unsuccessful. It was againattempted to cross the lesion from below via the left groin with the back of the Glidewire without success. For increased support, the left groin 5French sheath was exchanged for a longer 5 Serbian sheath. The back of the Glidewire and angled glide catheter were then used to again attempt crossing the lesion from below. Ultimately, the lesion was able to be crossed and the Glidewire advanced from the left side into theinfrarenal aorta. The glide catheter was advanced into the infrarenal aorta fromthe left and aortogram performed to verify intraluminal position. Thedecision was then made to proceed with treating this lesion by restenting theleft common iliac artery and extending it to the iliac bifurcation. AnAmplatz wire was advanced via the left groin up into the infrarenal aorta. The glide catheter was withdrawn and the left groin 5 Serbian sheath was exchanged for a 7 Serbian sheath. In order to prevent jailing of theright common iliac artery and stent, the decision was made to place a balloonin the right common iliac artery and stent with plans to insufflate this in tandem with deployment of the new stent on the left. The wire on theright was exchanged for an Amplatz wire in the right groin 5 Serbian sheath was exchanged for a 6 Serbian sheath. A 9 mm x 40 mm Osprey balloon was then advanced via the right groin up into the right common iliac arterystent. A 10 mm x 38 mm balloon expandable covered Icast stent was then advanced via the left groin into the left common iliac artery stent. This stentwas then balloon deployed while insufflating the balloon on the right in tandem. The balloons were then deflated. The stent deployment balloon on the left was then withdrawn and an 8 mm x 38 mm balloon expandablecovered Icast stent was then advanced into the left common iliac artery just distal to this previously placed stent. The stent was then balloon deployed and the deployment balloon was withdrawn. The balloon on the right was also withdrawn. The Omni Flush catheter was then advanced into the infrarenal aorta and completion aortoiliofemoral angiography was performed with findings as noted below and no concerning findings necessitating further intervention. The left groin 7 Serbian sheath was exchanged for a short 7 Serbian sheath. The wires were withdrawn and Mynx closure devices were deployed in the bilateral groins for closure after bilateral sheath removal. Manual pressure was applied to the bilateral groins for 5 minutes to achieve hemostasis. After this period of timeboth groins were without active bleeding and no hematoma. The bilateral groin access sites were then dressed with dry gauze and Tegaderm. The patient tolerated the procedure well and was taken back to the holding area in stable condition. COMPLICATIONS: None FLUOROSCOPY TIME: 26.5 minutes CONTRAST: 100 mL Isovue-300 SEDATION: Total sedation time was 100 minutes. A total of 200 mcg of IV fentanyl and 4 mg of IV Versed were administered. ANGIOGRAPHIC FINDINGS: Pre-intervention: Patent infrarenal aorta. Bilateral common iliac artery stents noted in place. Patent right common iliac, external iliac, and internal iliac arteries. Occluded left common iliac artery and stent. Reconstitution of the patent left external and internal iliac arteries. Patent left common femoral, superficial femoral and profunda arteries. Patent leftpopliteal artery. Three-vessel runoff in the left lower leg with 2 vessels intothe left foot via the left anterior tibial and posterior tibial arteries. Post-intervention: Patent left common iliac artery status post stent placement x2 with no residual stenosis. This report was approved by Ruy Zendejas on 09/05/2020 8:39 AM . I, Dr. KENDRICK TAO M.D. have personally reviewed and interpreted this examination/study. This report was electronically signed by KENDRICK TAO M.D. on 09/06/2020 11:05 AM . Kendrick Tao MD IR ORDERABLES * OCT (06/12/2020 11:33 AM CDT) Anatomical Region Laterality Modality Other 06/12/2020 11:3 3 AM CDT Tyrone Zuniga MD OPHTHALMOLO [facility] SERVICES ORDERABLES * OCT (06/12/2020 10:47 AM CDT) Anatomical Region Laterality Modality Other 06/12/2020 10:4 7 AM CDT Kathleen Hill MD OPHTHALMOLOGY SERV ICES ORDERABLES * OPH OCT TEST [facility] (02/09/2020 12:00 AM CDT) Anatomical Region Laterality Modality Other 02/09/2020 Tyrone Zuniga MD [facility]PHTHALMOLO [facility]Y SERVICES ORDERABLES * XR KNEE RIGHT 4VW OR MORE (10/08/2015 8:35 AM ROLL SCALE MAN) Anatomical Region Laterality Modality Lower Extremity Other Impressions 10/08/2015 11:03 AM ROLL SCALE MAN Impression: 1. No acute osseous injury. 2. Bilateral osteoarthritis, severe at the medial compartments. 3. Small right knee joint effusion. This report was dictated by Marvin Kiser M.D. This report was approved ??by Marvin Kiser M.D ?? on 10/08/2015 10:09 AM . I, Dr. CURTIS LUI MD have personally reviewed and interpreted this examination/study. This report was electronically signed by CURTIS LUI MD ??on 10/08/2015 11:03 AM . Narrative 10/08/2015 11:03 AM ROLL SCALE MAN Examination: 1. XR KNEE RIGHT 4+ VW 2.XR KNEE LEFT 4+ VW, Date: 10/08/2015 8:35 AM History: pain Comparison: No prior study is available for comparison. Findings: Right knee: No acute fracture or dislocation is identified. There is severe medial compartment joint space narrowing with subchondral sclerosis. Tricompartmental osteophytes are noted. There is mild patellofemoral joint space narrowing. Small joint effusion is noted. The bones are osteopenic. Mild soft tissue swelling is noted along the medial aspect of the knee joint. Left knee: No acute fracture or dislocation is identified. There is severe medial compartment joint space narrowing. Mild patellofemoral compartment osteoarthritis is noted. Tricompartmental osteophytes are noted. The bones are osteopenic. No joint effusion is identified. Procedure Note Curtis Lui MD - 02/12/2018 Examination: 1. XR KNEE RIGHT 4+ VW 2.XR KNEE LEFT 4+ VW, Date: 10/08/2015 8:35 AM History: pain Comparison: No prior study is available for comparison. Findings: Right knee: No acute fracture or dislocation is identified. There is severe medialcompartment joint space narrowing with subchondral sclerosis.Tricompartmental osteophytes are noted. There is mild patellofemoral jointspace narrowing. Small joint effusion is noted. The bones are osteopenic. Mild soft tissue swelling is noted alongthe medial aspect of the knee joint. Left knee: No acute fracture or dislocation is identified. There is severe medialcompartment joint space narrowing. Mild patellofemoral compartmentosteoarthritis is noted. Tricompartmental osteophytes are noted. The bonesare osteopenic. No joint effusion is identified. IMPRESSION Impression: 1. No acute osseous injury. 2. Bilateral osteoarthritis, severe at the medial compartments. 3. Small right knee joint effusion. This report was dictated by Marvin Kiser M.D. This report was approved by Marvin Kiser M.D on 10/08/2015 10:[address] CURTIS Rader MD have personally reviewed and interpreted thisexamination/study. This report was electronically signed by CURTIS LUI MD on10/08/2015 11:03 AM . Kenan Singh MD DIAGNOSTIC IMAGING ORDERABLES * XR KNEE LEFT 4VW OR MORE (10/08/2015 8:35 AM ROLL SCALE MAN) Anatomical Region Laterality Modality Lower Extremity Other Impressions 10/08/2015 11:03 AM ROLL SCALE MAN Impression: 1. No acute osseous injury. 2. Bilateral osteoarthritis, severe at the medial compartments. 3. Small right knee joint effusion. This report was dictated by Marvin Kiser M.D. This report was approved ??by Marvin Kiser M.D ?? on 10/08/2015 10:[address] CURTIS Rader MD have personally reviewed and interpreted this examination/study. This report was electronically signed by CURTIS LUI MD ??on 10/08/2015 11:03 AM . Narrative 10/08/2015 11:03 AM ROLL SCALE MAN Examination: 1. XR KNEE RIGHT 4+ VW 2.XR KNEE LEFT 4+ VW, Date: 10/08/2015 8:35 AM History: pain Comparison: No prior study is available for comparison. Findings: Right knee: No acute fracture or dislocation is identified. There is severe medial compartment joint space narrowing with subchondral sclerosis. Tricompartmental osteophytes are noted. There is mild patellofemoral joint space narrowing. Small joint effusion is noted. The bones are osteopenic. Mild soft tissue swelling is noted along the medial aspect of the knee joint. Left knee: No acute fracture or dislocation is identified. There is severe medial compartment joint space narrowing. Mild patellofemoral compartment osteoarthritis is noted. Tricompartmental osteophytes are noted. The bones are osteopenic. No joint effusion is identified. Procedure Note Curtis Lui MD - 02/12/2018 Examination: 1. XR KNEE RIGHT 4+ VW 2.XR KNEE LEFT 4+ VW, Date: 10/08/2015 8:35 AM History: pain Comparison: No prior study is available for comparison. Findings: Right knee: No acute fracture or dislocation is identified. There is severe medialcompartment joint space narrowing with subchondral sclerosis.Tricompartmental osteophytes are noted. There is mild patellofemoral jointspace narrowing. Small joint effusion is noted. The bones are osteopenic. Mild soft tissue swelling is noted alongthe medial aspect of the knee joint. Left knee: No acute fracture or dislocation is identified. There is severe medialcompartment joint space narrowing. Mild patellofemoral compartmentosteoarthritis is noted. Tricompartmental osteophytes are noted. The bonesare osteopenic. No joint effusion is identified. IMPRESSION Impression: 1. No acute osseous injury. 2. Bilateral osteoarthritis, severe at the medial compartments. 3. Small right knee joint effusion. This report was dictated by Marvin Kiser M.D. This report was approved by Marvin Kiser M.D on 10/08/2015 10:[address] CURTIS Rader MD have personally reviewed and interpreted thisexamination/study. This report was electronically signed by CURTIS LUI MD on10/08/2015 11:03 AM . Kenan Singh MD DIAGNOSTIC IMAGING ORDERABLES * XR CERVICAL SPINE 2 OR 3VW (04/12/2015 10:50 AM CDT) Anatomical Region Laterality Modality Spine Other Impressions 04/12/2015 11:52 AM CDT IMPRESSION: 2-3 mm anterolisthesis of C4 on C5. Degenerative disc disease at C5-6. Dictated by Anu Kiser MD This report was approved ??by Anu Kiser M.D. ?? on 04/12/2015 11:[address] CURTIS Rader MD have personally reviewed and interpreted this examination/study. This report was electronically signed by CURTIS LUI MD ??on 04/12/2015 11:52 AM . Narrative 04/12/2015 11:52 AM CDT EXAMINATION: XR SPINE CERVICAL 2 OR 3 VIEWS HISTORY: ap/lateral for ??pain COMPARISON: No prior study is available for comparison. FINDINGS: There is a 2-3 mm anterolisthesis of C4 on C5. Vertebral body heights are normal. There is disc space narrowing at C5-6 with anterior osteophytes. 2 linear hyperdensities in the lateral soft tissues of the left neck may represent surgical clips. Procedure Note Curtis Lui MD - 02/12/2018 EXAMINATION: XR SPINE CERVICAL 2 OR 3 VIEWS HISTORY: ap/lateral for pain COMPARISON: No prior study is available for comparison. FINDINGS: There is a 2-3 mm anterolisthesis of C4 on C5. Vertebral body heights arenormal. There is disc space narrowing at C5-6 with anterior osteophytes. 2linear hyperdensities in the lateral soft tissues of the left neck mayrepresent surgical clips. IMPRESSION IMPRESSION: 2-3 mm anterolisthesis of C4 on C5. Degenerative disc disease at C5-6. Dictated by Anu Kiser MD This report was approved by Anu Kiser M.D. on 04/12/2015 11:50 AM . I, Dr. CURTIS LUI MD have personally reviewed and interpreted thisexamination/study. This report was electronically signed by CURTIS LUI MD on 04/12/201511:52 AM . Александр Sanchez MD DIAGNOSTIC IMAGING O RDERABLES * XR SCOLIOSIS 1VW (04/12/2015 9:23 AM CDT) Anatomical Region Laterality Modality Spine Other Impressions 04/12/2015 10:42 AM CDT Impression: Mild scoliosis. This report was electronically signed by CURTIS LUI MD ??on 04/12/2015 10:42 AM . Narrative 04/12/2015 10:42 AM CDT Exam: ??XR SPINE SCOLIOSIS STANDING History: ??scoliosis Comparison: None available. Findings: There is mild scoliosis of the lower cervical and upper thoracic spine. There is no significant scoliosis of the lower thoracic or lumbar spine. The head is shifted rightward with respect to the pelvis in the frontal plane. The lumbar lordosis and thoracic kyphosis are normal. The sagittal vertical axis is -3.0 cm. There is mild pelvic tilt with the left iliac crest ?? 8 mm higher than the right. No fracture or subluxation is seen. There is mild thoracic and lumbar degenerative disc disease. Right upper quadrant surgical clips are noted. Procedure Note Curtis Lui MD - 02/12/2018 Exam: XR SPINE SCOLIOSIS STANDING History: scoliosis Comparison: None available. Findings: There is mild scoliosis of the lower cervical and upper thoracic spine.There is no significant scoliosis of the lower thoracic or lumbar spine.The head is shifted rightward with respect to the pelvis in the frontalplane. The lumbar lordosis and thoracic kyphosis are normal. The sagittal vertical axis is -3.0 cm. Thereis mild pelvic tilt with the left iliac crest 8 mm higher than theright. No fracture or subluxation is seen. There is mild thoracic andlumbar degenerative disc disease. Right upper quadrant surgical clips are noted. IMPRESSION Impression: Mild scoliosis. This report was electronically signed by CURTIS LUI MD on 04/12/201510:42 AM . Александр Sanchez MD [facility] Care Teams Metrology Engineer Relationship Specialty Start Date End Date Matti Balderas MD [address] [place] [phone] PCP - General Family Medicine 10/27/24
--- OUTSIDE RECORDS SUMMARY | 2024-11-12 04:41 | XMS_ITS | Encounter Summary ---
Author Organization [facility] Address [address] [place] [address] Care Team Providers Care Armature Winder Name Role Phone Deisi Andrews MD Primary Care Provider [phone] Encounter Details Date Type Department Care Team (Latest Contact Info) Description 09/11/2024 Travel Social History Tobacco Use Types Packs/Day [...] st Contact Info) Description 01/19/2025 11:30 AM WELDER APPRENTICE ARC Procedure visit [facility] [address] [place] [address] Jose Oliver MD [address] [facility] [address] [facility] [place] [address] documented as of this encounter Goals Goal [...] on filedocumented in this encounter Care Teams Armature Winder Relationship Specialty Start Date End Date Deisi Andrews MD [address] [place] [address] [place] [address] PCP - General Family Medicine 05/26/23 10/26/24 documented as of this encounter
--- OUTSIDE RECORDS SUMMARY | 2024-11-12 04:41 | XMS_ITS | Clinical Summary ---
Author Organization [facility] Address [address] [place] [address] Care Team Providers Care Dependency Program Director Name Role Phone Matti Balderas MD Primary Care Provider [phone] Source Comments [facility],non-owned Affiliates and Associated Physician Practices is amultiple site organization consisting of ambulatory clinics and hospital sitesin [place], [place], [place] and [place]. This disclosure is being madepursuant to the Care Everywhere program and may not contain all information available regarding this patient. Last updated 18.[facility] Allergies Active Allergy Reactions Criticality Noted Date [...] meal 12/27/2016 Active vitamin D, ergocalciferol, (DRISDOL) 03210 UNITS capsule Take 1 (one) capsule by [...] tage 2 moderate COPD by GOLD classification (HCC) Inhale 2 (two) puffs by mouth every [...] patchIndications:MDD (recurrent major depressive disorder) in remission ([facility]) Apply 1 (one) patch to skin once daily 30 patch 2 06/19/2024 Active nicotine (Nicotrol) 10 MG inhalerIndications:M DD (recurrent major depressive disorder) in remission ([facility]) Inhale 10 mg by mouth as needed [...] lignant neoplasm of urinary bladder, unspecified site ([facility]),Bladder spasms,Urinary frequency Take 1 (one) tablet by [...] Problem Noted Date Diagnosed Date CAD in [place] artery 10/24/2020 MDD (recurrent major depressive disorder) [...] Major depressive disorder, single episode 10/14/2016 05/10/2018 Encounters Date Type Department Care Team Description 10/27/2024 1:30 PM CABLE TOOL DRILLER Procedure visit [facility] - [facility]rology [address] [place] [address] [address] [place] [address] Jose Oliver MD Malignant neoplasm of urinary bladder, unspecified site (HCC) 10/27/2024 Travel 09/19/2024 Travel 09/15/2024 11:30 AM CDT Clinical Support [facility]rology [address] [place] [address] [address] [place] [address] Jose Oliver MD Malignant neoplasm of urinary bladder, unspecified site ([facility]) 09/15/2024 Travel 09/13/2024 Travel 09/13/2024 Telephone [facility] - Centralized Scheduling [address] [place] [address] Jose Oliver MD Med Question; Appointment 09/11/2024 Travel 09/08/2024 10:30 AM CDT Clinical Support [facility]rology [address] [place] [address] [address] [place] [address] Melissa Rolon, VAMP THROATER-POLICE SERGEANT PRECINCT Asymptomatic microscopic hematuria 09/08/2024 Orders Only [facility] [address] [place] [address] [address] [place] [address] Melissa Rolon, VAMP THROATER-POLICE SERGEANT PRECINCT 09/08/2024 Travel 09/01/2024 11:00 AM CDT Clinical Support [facility] [address] [place] [address] [address] [place] [address] Jose Oliver MD Malignant neoplasm of urinary bladder, unspecified site ([facility]) ; Bladder spasms; Urinary frequency 09/01/2024 Travel 08/25/2024 11:00 AM CDT Clinical Support [facility] [address] [place] [address] [address] [place] [address] Jose Oliver MD Malignant neoplasm of urinary bladder, unspecified site ([facility]) 08/25/2024 Travel 08/18/2024 11:00 AM CDT Clinical Support [facility] [address] [place] [address] [address] [place] [address] Jose Oliver MD Malignant neoplasm of urinary bladder, unspecified site (HCC) 08/18/2024 Travel from Last 3 Months Immunizations Name Administration Dates Next Due INFLUENZA [...] RECOM-MIRANDA, QUADR. (FLUBLOCK QUADRIVALENT; 18Y+) (RIV4) 01/05/2022 Family History Medical History Relation Name Comments Alcohol abuse Father Depression Mother Depression Sister Thyroid Disease Neg Hx Relation Name Status Comments Father Mother Sister Social History Tobacco Use Types Packs/Day Years [...] Comments Blood Pressure 84/54 10/27/2024 2:11 PM CABLE TOOL DRILLER Pulse 78 10/27/2024 2:11 PM CABLE TOOL DRILLER Temperature 36.2 ??C (97.2 ??F) 10/27/2024 2:11 PM CS T Respiratory Rate 18 10/27/2024 2:11 PM CABLE TOOL DRILLER Oxygen Saturation 96% 10/27/2024 2:11 PM CABLE TOOL DRILLER Inhaled Oxygen Concentration 21% 06/21/2024 8 :20 AM CDT Weight 83.9 kg (185 lb) 09/19/2024 9:51 AM CABLE TOOL DRILLER Height 160 cm (5' 3 ) 10/27/2024 2:11 PM CABLE TOOL DRILLER Body Mass Index 32.77 09/15/2024 11:54 AM CDT Plan of Treatment Upcoming Encounters Date Type Department Care Team (Late st Contact Info) Description 01/19/2025 11:30 AM CABLE TOOL DRILLER Procedure visit [facility] [address] [place] [address] [address] [place] [address] Jose Oliver MD [address] [place] [address] Health Maintenance Due Date Last Done Comments COLOGUARD (AGES 45-75) - COLON CA SCREENING [address] COLONOGRAPHY - COLON CA SCREENING 1961 FIT - COLON CA SCREENING 1961 FLEX SIG - COLON CA SCREENING 1961 MAMMOGRAM 1961 Opioid Medication Agreement - Annual 1961 PAP SMEAR 1961 HIV SCREENING 1976 HEPATITIS C SCREENING 12/25/1979 DIABETES-STATIN 2001 LUNG CANCER SCREENING 2011 ZOSTER VACCINE (1 of 2) 2011 DIABETES-FOOT EXAM WITH MONOFILAMENT 01/11/2019 Respiratory Syncytial Virus (RSV) Vaccine Pt: or over 60 yrs (1 - Risk 60-74 years 1-dose series) 2021 DIABETES - URINE PROTEIN SCREENING 11/15/2023 DIABETES RETINOPATHY SCREENING 12/02/2023 12/02/2021, 12/02/2021, 06/12/2020, Additional history exists DIABETES-HGB A1C 05/22/2024 11/22/2023, 10/06/2021 COVID-19 VACCINE ( season) 2024 03/13/2021, 02/17/2021, 02/06/2021 INFLUENZA VACCINE (#1) 2024 2, 01/05/2022, 08/28/2020, Additional history exists DIABETES-SERUM CREATININE 06/28/20252023, 11/22/2023, 10/22/2023, Additional history exists PNEUMOCOCCAL VACCINE (3 of 3 - PPSV23 or PCV20) 2026 10/21/2016, 07/23/2016, 12/16/2015 COLONOSCOPY - COLON CA SCREENING 02/13/2029 02/13/2019 (Done Outside Per Report) Colorectal Cancer Screening 02/13/2029 DTAP/TDAP/TD VACCINES (3 - Td or Tdap) 05/27/2031 05/27/2021, 01/31/2019 DEPRESSION SCREENING Completed 01/07/2024, 08/17/2023, 05/27/2023, Additional history exists HEPATITIS B VACCINE Aged Out No longe r eligible based on patient's age to complete this topic HIB VACCINE Aged Out No longer eligi ble based on patient's age to complete this topic HPV VACCINE Aged Out No longer eligi ble based on patient's age to complete this topic MENINGOCOCCAL VACCINE Aged Out No jodi jasiel eligible based on patient's age to complete this topic Goals Goal Patient Goal Type Associated Problems [...] last dose Medical Devices Implanted Type Area Claims Support Specialist Device Identifier Shelf Expiration Date Model / Serial / Lot Stent Trchbr 10mm 7fr 38mm 80cm Cvr Cath Implanted:Qty: 1 on 09/04/2020 by Jose A Clark MD at [facility] N/A: Abdomen [employer] 04/05/2023 [id number] / / [id number] Stent Trchbr 8mm 7fr 38mm 80cm Cvr Cath Implanted:Qty: 1 on 09/04/2020 by Jose A Clark MD at [facility] N/A: Abdomen [employer] 05/22/2023 [id number] / / [id number] Procedures Procedure Name Priority Date/Time Associated Diagnosis Comments URINALYSIS AUTO - POINT OF CARE (AMB) [facility] Routine 10/27/2024 2:13 PM CABLE TOOL DRILLER Malignant neoplasm of urinary bladder, unspecified site [...] CDT HEMOGLOBIN A1C Routine 11/22/2023 10:36 AM CABLE TOOL DRILLER Pre-op exam from Last 3 Months or Most Recently Relevant to Health Maintenance Results * URINALYSIS AUTO - POINT OF CARE (AMB) [facility] (10/27/2024 2:13 PM CABLE TOOL DRILLER) Only the most recent of5 resultswithin the time period is included. Glucose UA neg [facility] [address] Bilirubin UA POCT neg [facility] [address] Ketones UA POCT neg [facility] [address] Specific [place] UA 1.[address] [facility] [address] Blood Urine POCT neg [facility] [address] pH UA 5.5 [facility] [address] Protein UA neg [facility] [address] Urobilinogen UA 0.2 [facility] [address] Nitrite UA neg [facility] [address] WBC UA neg [facility] [address] Urine URINE / Unknown 10/27/2024 2 :13 PM CABLE TOOL DRILLER Jose Oliver MD LAB - POINT OF CAR E ORDERABLES [facility] [address] [place] [address], [facility] [phone] * CULTURE URINE (09/08/2024) Culture [facility] Comment: ??CULTURE, URINE, ROUTINE ?Micro Number: ?[id number] ??Test Status: ? Final ??Specimen Source: ?? Urine ??Specimen Quality: ??Adequate ??Result: ?Mixed genital unruly isolated. These superficial ? bacteria are not indicative of a urinary tract ? infection. No further organism identification is ? warranted on this specimen. If clinically ? indicated, recollect clean-catch, mid-stream ? urine and transfer immediately to Urine Culture ? Transport Tube. Test Performed at: [facility] ??[id number] GISELE JUSTICE MD 09/08/2024 09/09/2024 1:3 2 AM CDT Melissa T Rolon VAMP THROATER-POLICE SERGEANT PRECINCT LAB - MICROBIOL OGY ORDERABLES [facility] [address] [place] [address] * BASIC METABOLIC PANEL (CALCIUM TOTAL) (06/28/2024 3:17 PM CDT) BUN 15 7 - 26 mg/dL 06/28/2024 3:51 PM T [facility] Creatinine 0.69 0.56 - 0.96 mg/dL 06/28/2024 3:51 PM [facility] Sodium 138 136 - 145 mmol/L 06/28/2024 3:51 PM [facility] Potassium 4.0 3.5 - 4.5 mmol/L 06/28/2024 3:51 PM [facility] Chloride 103 98 - 107 mmol/L 06/28/2024 3:51 PM [facility] CO2 26 22 - 29 mmol/L 06/28/2024 3:51 PM [facility] Glucose 102 70 - 115 mg/dL 06/28/2024 3:51 PM [facility] Calcium 9.4 8.4 - 10.2 mg/dL 06/28/2024 3:51 PM [facility] Anion Gap 9 6 - 16 06/28/2024 3:51 PM [facility] BUN/Creatinine Ratio 22 7 - 23 06/28/2024 3:51 PM [facility] Osmolality Calculated 287 275 - 295 mOsm/kg 06/28/2024 3:51 PM [facility] eGFR by CKD-EPI >90 >=90 mL/min/1.7 3 m2 06/28/2024 3:51 PM [facility] Blood BLOOD SPECIMEN / Unknown Venipuncture / Unknown 06/28/2024 3:17 PM CDT 06/28/2024 3:26 PM CDT Martir Choi MD LAB - CHEMISTRY BASSAM CONTRERAS [facility] [address] [place] [address], [facility] [phone] * (ABNORMAL) HEMOGLOBIN A1C [IN-HOUSE TEST] (11/22/2023 10:36 AM [facility]) Hemoglobin A1c 6.4(H) <=5.6 % 11/22/2023 12:05 PM [facility] Estimated Average Glucose 137 mg/dL 11/22/2023 12:05 PM [facility] Comment: HbA1c Interpretation: Normal : < 5.7% Pre-diabetes: 5.7-6.4% Diabetes: Equal to or greater than 6.5% Test results diagnostic of diabetes should be repeated for confirmation. Treatment target values recommended by ADA and other clinical organizations should be used to evaluate metabolic control in patients. Reference: [place] [employer], Standards of Care in Diabetes -2020 In patients 70 years and older consider HbA1c target range of 7.0-7.5% (Reference: Montez Rosas et al. JAMDA. 2012) The Sebia assay for the measurement of HbA1c is a National Glycohemoglobin Standardization Program (NGSP) certified method. Blood BLOOD SPECIMEN WITH EDTA / Unknown Lab Venipuncture / Unknown 11/22/2023 10:36 AM CABLE TOOL DRILLER 11/22/2023 10:42 AM [facility] Jasmin Moore VAMP THROATER-POLICE SERGEANT PRECINCT LAB - CHEMISTRY ORDERABLES [place] [id number] [place] [address], [facility] [phone] from Last 3 Months or Most Recently Relevant to Health Maintenance Advance Directives * Full Code (Latest Code Status on File) Date Activated Date Inactivated Comments 10/24/2020 10:10 AM 10/24/2020 6:00 PM Care Teams Dependency Program Director Relationship Specialty Start Date End Date Matti Balderas MD [address] [place], [place] [phone] PCP - General Family Medicine 10/27/24
--- OUTSIDE RECORDS SUMMARY | 2024-11-12 04:41 | XMS_ITS | Encounter Summary ---
Author Organization [facility] Address [address] [place] [address] Care Team Providers Care Textile Machine Mechanic Name Role Phone Deisi Andrews MD Primary Care Provider [phone] Matti Balderas MD Primary Care Provider [phone] Reason for Visit * Reason Onset Date Comments Med Question 09/13/2024 Appointment 09/13/2024 Encounter Details Date Type Department Care Team (Late st Contact Info) Description 09/13/2024 Telephone [facility] - Centralized Scheduling [address] [place] [address] Jose Oliver MD [address] [place] [address] Med Question; Appointment Social History Tobacco Use Types Packs/Day Years [...] No 06/21/2024 documented as of this encounter Miscellaneous Notes * Telephone Encounter - Celsa Ryan - 09/13/2024 12:33 PM CDT Patient was suppoosed to be scheduled for her last instillation of BCG on 09/15, but her appt was canceled. Patient is wanting to know what she is supposed to do. documented in this encounter Plan of Treatment Upcoming Encounters Date Type Department Care Team (Late st Contact Info) Description 01/19/2025 11:30 AM NUTRITION AIDES TEACHER Procedure visit [facility] - Urology [address] [place] [address] [address] [place] [address] Jose Oliver MD [address] [place] [address] documented as of this encounter Goals Goal [...] on filedocumented in this encounter Care Teams Textile Machine Mechanic Relationship Specialty Start Date End Date Deisi Andrews MD [address] [place] [place] [address] PCP - General Family Medicine 05/26/23 10/26/24 Matti Balderas MD [address] [place] [phone] PCP - General Family Medicine 10/27/24 documented as of this encounter
--- OUTSIDE RECORDS SUMMARY | 2024-11-12 04:41 | XMS_ITS | Encounter Summary ---
Author Organization [facility] Address [address] [place] [address] Care Team Providers Care Cash Register Servicer Name Role Phone Deisi Andrews MD Primary Care Provider [phone] Encounter Details Date Type Department Care Team (Latest Contact Info) Description 08/18/2024 Travel Social History Tobacco Use Types Packs/Day [...] st Contact Info) Description 01/19/2025 11:30 AM MANAGER HOSPITALITY Procedure visit [facility] [address] [facility] [address] [place] [address] Jose Oliver MD [address] [facility] [address] [facility] [place] [address] documented as of this encounter Goals Goal [...] on filedocumented in this encounter Care Teams Cash Register Servicer Relationship Specialty Start Date End Date Deisi Andrews MD [address] [place] [address] [place] [address] PCP - General Family Medicine 05/26/23 10/26/24 documented as of this encounter
--- OUTSIDE RECORDS SUMMARY | 2024-11-12 04:41 | XMS_ITS | Encounter Summary ---
Author Organization [facility] Address [address] [place] [address] Care Team Providers Care Hazmat Cdl A Driver Name Role Phone Deisi Andrews MD Primary Care Provider [phone] Encounter Details Date Type Department Care Team (Latest Contact Info) Description 08/25/2024 Travel Social History Tobacco Use Types Packs/Day [...] st Contact Info) Description 01/19/2025 11:30 AM NON PROFIT FINANCIAL CONTROLLER Procedure visit [facility] [address] [facility] [address] [place] [address] Jose Oliver MD [address] [facility] [address] [facility] [place] [address] documented as of this encounter Goals Goal [...] on filedocumented in this encounter Care Teams Hazmat Cdl A Driver Relationship Specialty Start Date End Date Deisi Andrews MD [address] [place] [address] [place] [address] PCP - General Family Medicine 05/26/23 10/26/24 documented as of this encounter
--- OUTSIDE RECORDS SUMMARY | 2024-11-12 04:41 | XMS_ITS | Encounter Summary ---
Author Organization [facility] Address [address] [place] [address] Care Team Providers Care Precision Inspector Name Role Phone Deisi Andrews MD Primary Care Provider [phone] Reason for Visit * Reason Comments Follow-up BLADDER CANCER BCG I NSTILLATION #5 Encounter Details Date Type Department Care Team (Late st Contact Info) Description 09/01/2024 11:00 AM CDT Clinical Support [facility] Urology [address] [place] [address] [address] [place] [address] Jose Oliver MD [address] [place] [address] Malignant neoplasm of urinary bladder, unspecified site (HCC) ; Bladder spasms; Urinary frequency Social History Tobacco Use Types Packs/Day Years [...] Sign Reading Time Taken Comments Blood Pressure 129/84 09/01/2024 11:31 AM CDT Pulse - - Temperature 36.4 ??C (97.6 ??F) 09/01/2024 11:31 AM C DT Respiratory Rate - - Oxygen Saturation - - Inhaled Oxygen Concentration - - Weight 83.5 kg (184 lb) 09/01/2024 11:31 AM CDT Height 160 cm (5' 3 ) 09/01/2024 11:31 AM CDT Body Mass Index 32.59 09/01/2024 11:31 AM CDT documented in this encounter Functional [...] Progress Notes * Jose Oliver MD - 09/01/2024 12:04 PM CDT Images from the original note were not included. I was present in office for BCG administration, #4 of 6 documented in this encounter Procedure Notes * Murray Richard LPN - 09/01/2024 12:07 PM CDT Patient presented to office for BCG #5 of 6. 14fr straight catheter placed in a sterile fashion andbladder emptied. 50mg of BCG instilled through straight catheter, patient tolerated well. Patient education provided, and all questions answered. Education pamphlet provided at patient's request. Patient to follow up in office next Wednesday for final BCG instillation. documented in this encounter Plan of Treatment Upcoming Encounters Date Type Department Care Team (Late st Contact Info) Description 01/19/2025 11:30 AM HOME PLANNING CONSULTANT SALESPERSON Procedure visit [facility] - Urology [address] [place] [address] Rd [address] [place] [address] Jose Oliver MD [address] [place] [address] documented as of this encounter Goals Goal [...] AUTO - POINT OF CARE (AMB) [facility] (09/01/2024) Glucose UA - Bilirubin UA POCT - Ketones UA POCT - Specific [place] UA 1.025 Blood Urine POCT - pH UA 6.0 Protein UA - Urobilinogen UA - Nitrite UA - WBC UA - Urine URINE / Unknown 09/01/2024 Jose Oliver MD LAB - POINT OF CAR E ORDERABLES documented in this encounter Visit Diagnoses Diagnosis Malignant neoplasm of urinary bladder, unspecified site (HCC)- Primary Bladder spasms Other specified disorders of bladder Urinary frequency documented in this encounter Administered Medications Inactive Administered Medications - up to 3 most recent administrations Medication Order MAR Action Action Date Dose Rate Site bcg live (Marina Bcg) injection 50 mg 50 mg, Bladder Instillation, ONCE, 1 dose, On Wed09/01/24 at 1230, For bladder irrigation, dose should be retained for 2 hours (patient should reposition every 15 mintues), then voided, during the first 24 hours after instillation, patient should sit while voiding $ Given 09/01/2024 12:01 PM CDT 50 mg documented in this encounter Care Teams Precision Inspector Relationship Specialty Start Date End Date Deisi Andrews MD [address] [phone] PCP - General Family Medicine 05/26/23 10/26/24 documented as of this encounter
--- OUTSIDE RECORDS SUMMARY | 2024-11-12 04:42 | XMS_ITS | Encounter Summary ---
Author Organization [facility] Address [address] [facility] [place] [address] Care Team Providers Care Application Security Engineer Name Role Phone Deisi Andrews MD Primary Care Provider [phone] Encounter Details Date Type Department Care Team (Late st Contact Info) Description 06/12/2024 Orders Only [facility] [address] [facility] [place] [address] Monica Magallon LPN Pre-op testing ; Malignant neoplasm of urinary bladder, unspecified site (HCC); Microscopic hematuria Social History Tobacco Use Types Packs/Day Years Used Date Smoking Tobacco: Every Day Cigarettes 1 40 Smokeless Tobacco: Never Alcohol Use Standard Drinks/Week Comments No 0 (1 standard drink = 0.6 oz pur e alcohol) AUDIT-C Answer Date Recorded Q1: How often do you have a drink containing alcohol? Never 01/17/2024 Q2: How many drinks containi ng alcohol do you have on a typical day when you are drinking? Patient does not drink Q3: How often do you have si x or more drinks on one occasion? Never 01/17/2024 PHQ-2 Answer Date Recorded Patient Health Questionnaire-2 Score 4 01/07/2024 Sex and Gender Information Value Date Recorded Sex Assigned at Not on file Gender Identity Not on file Sexual Orientation Not on file documented as of this encounter Functional Status Functional Status Response Date of Assess ment Is person deaf or have serious hearing difficult y? No 01/17/2024 Is person blind or have serious difficulty seein g? No 01/17/2024 Does person have serious dif ficulty walking/climbing stairs? No 01/17/2024 Does person have difficulty dressing/bathing? No 01/17/2024 Does person have difficulty doing errands alone? No 01/17/2024 Cognitive Status Response Date of Assessm ent Does person have difficulty concentrating/remembering/making decisions? No 01/17/2024 documented as of this encounter Progress Notes * Monica Magallon LPN - 06/14/2024 7:03 AM CDT 06/12- Faxed urine culture order to [facility] [phone]; called patient and left message to have urine culture performed. documented in this encounter Plan of Treatment Upcoming Encounters Date Type Department Care Team (Late st Contact Info) Description 01/19/2025 11:30 AM BUILDING PRINCIPAL Procedure visit [facility] - Urology [address] [place] [address] [address] [place] [address] Jose Oliver MD [address] [place] [phone] Scheduled Orders Name Type Priority Associated Diagnoses Orde r Schedule CULTURE URINE Microbiology Routine Pre-op testing Malignant neoplasm of urinary bladder, unspecified site (HCC) Microscopic hematuria 1 Occurrences starting 06/12/2024 until 07/07/2025 documented as of this encounter Goals Goal [...] as of this encounter Visit Diagnoses Diagnosis Pre-op testing- Primary Preoperative examination, unspecified Malignant neoplasm of urinary bladder, unspecified site (HCC) Microscopic hematuria documented in this encounter Care Teams Application Security Engineer Relationship Specialty Start Date End Date Deisi Andrews MD [address] [place] [address] DANNIE Rodríguez [phone] PCP - General Family Medicine 05/26/23 10/26/24 documented as of this encounter
--- OUTSIDE RECORDS SUMMARY | 2024-11-12 04:42 | XMS_ITS | Encounter Summary ---
Author Organization [facility] Address [address] [facility] [place] [address] Care Team Providers Care Medical Referral Coordinator Name Role Phone Deisi Andrews MD Primary Care Provider [phone] Reason for Visit * Reason Onset Date Comments Results 06/26/2024 Encounter Details Date Type Department Care Team (Late st Contact Info) Description 06/26/2024 Telephone [facility] [address] [place] [address] Jose Oliver MD [address] [place] [address] Results Social History Tobacco Use Types Packs/Day Years [...] encounter Miscellaneous Notes * Telephone Encounter - Jose Oliver MD - 06/26/2024 10:01 AM CDT Called to discuss pathology. She notes she went to an outside ER a day after her surgery (complaining of headache), was diagnosed with a UTI. Denies fever or dysuria today. I discussed her cTis disease. Have recommended BCG induction. She agrees. documented in this encounter Plan of Treatment Upcoming Encounters Date Type Department Care Team (Late st Contact Info) Description 01/19/2025 11:30 AM PHOTOGRAPHIC EQUIPMENT ASSEMBLER Procedure visit [facility] - Urology [address] [place] [address] [address] [place] [address] Jose Oliver MD [facility] [place] [id number] documented as of this encounter Goals Goal [...] on filedocumented in this encounter Care Teams Medical Referral Coordinator Relationship Specialty Start Date End Date Deisi Andrews MD [address] [place] [id number] PCP - General Family Medicine 05/26/23 10/26/24 documented as of this encounter
--- OUTSIDE RECORDS SUMMARY | 2024-11-12 04:42 | XMS_ITS | Encounter Summary ---
Author Organization [facility] Smallable Address [address] [place] [address] Care Team Providers Care Upper Shaper Name Role Phone Deisi Andrews MD Primary Care Provider [phone] Reason for Visit * Auth/Cert (Routine) Specialty Diagnoses / Procedures Referred By Nacho brooks Referred To Contact Diagnoses Malignant neoplasm of urinary bladder, unspecified site (HCC) Malignant neoplasm of urinary bladder, unspecified site Procedures OH CYSTOURETHROSCOPY,FULGUR 2-5CM LESN OH CYSTOURETHROSCOPY,URETER CATHETER OH CYSTOSCOPY,INSERT URETERAL STENT TRANSURETHRAL RESECTION BLADDER TUMOR (TURBT) CYSTOSCOPY WITH RETROGRADE PYELOGRAM CYSTOSCOPY WITH INSERTION URETERAL STENT Referral ID Status Reason Start Date Expiration Date Visits Re quested Visits Authorized [id number] 1 1 Encounter Details Date Type Department Care Team (Late Contact Info) Description 12/07/2023 7:30 AM STOVE CLEANER - 12/07/2023 9:05 AM [facility] Surgery [facility] [address] [place] [id number] Jose Oliver MD [address] [facility] 2L [place] [id number] TRANSURETHRAL RESECTION BLADDER TUMOR (TURBT) Surgery Details Date/Time Status Location OR Service Patient Class Case Class Case Type Trauma Case? 12/07/2023 7:30 AM Posted [facility] OR OR Urology Surgery Day Care Elective > 5 days Panel 1 Procedure LRB Anes Op Region Wound Class Comments TRANSURETHRAL RESECTION BLAD MARIO TUMOR (TURBT) N/A General Bladder Clean Contaminated LEFT RETROGRADE PYELOGRAM Left General Divya n Contaminated LEFT URETEROSCOPY, LEFT URET ERAL BIOPSY Left General Clean Contaminated Surgeon Surgeon Role Service Panel Jose Oliver MD Primary Urology 1 Kenan Argueta MD Resident - Assisting Urology 1 Case Notes Reviewed SM 11/29 documented in this encounter Social History Tobacco Use Types Packs/Day Years Used Date Smoking Tobacco: Every Day Cigarettes 1 40 Smokeless Tobacco: Never Tobacco Cessation:Ready to Q uit: Not Asked; Counseling Given: Not Answered Comments:pt said she will quit in 09/2021 Alcohol Use Standard Drinks/Week Comments No 0 (1 standard drink = 0.6 oz pur e alcohol) AUDIT-C Answer Date Recorded Q1: How often do you have a drink containing alcohol? Never 12/07/2023 Q2: How many drinks containi ng alcohol do you have on a typical day when you are drinking? Patient does not drink Q3: How often do you have si x or more drinks on one occasion? Never 12/07/2023 PHQ-2 Answer Date Recorded Patient Health Questionnaire-2 Score 2 08/17/2023 Sex and Gender Information Value Date Recorded Sex Assigned at Not on file Gender Identity Not on file Sexual Orientation Not on file documented as of this encounter Last Filed Vital Signs Vital Sign Reading Time Taken Comments Blood Pressure 114/51 12/07/2023 9:05 AM STOVE CLEANER Pulse 65 12/07/2023 9:05 AM STOVE CLEANER Temperature 36.3 ??C (97.3 ??F) 12/07/2023 8:25 AM CS T Respiratory Rate 11 12/07/2023 9:05 AM STOVE CLEANER Oxygen Saturation 93% 12/07/2023 9:05 AM STOVE CLEANER Inhaled Oxygen Concentration - - Weight 83 kg (183 lb) 12/07/2023 6:23 AM STOVE CLEANER Height 160 cm (5' 3 ) 12/07/2023 6:23 AM STOVE CLEANER Body Mass Index 32.42 12/07/2023 6:23 AM STOVE CLEANER documented in this encounter Functional Status Functional Status Response Date of Assess ment Is person deaf or have serious hearing difficult y? No 12/07/2023 Is person blind or have serious difficulty seein g? No 12/07/2023 Does person have serious dif ficulty walking/climbing stairs? No 12/07/2023 Does person have difficulty dressing/bathing? No 12/07/2023 Does person have difficulty doing errands alone? No 12/07/2023 Cognitive Status Response Date of Assessm ent Does person have difficulty concentrating/remembering/making decisions? No 12/07/2023 documented as of this encounter Discharge Instructions * Discharge Instructions* Kenan Argueta MD - 12/07/2023 8:50 AM STOVE CLEANER Images from the original note were not included. [facility] Urology You had a procedure called a transurethral resection of bladder tumor (TURBT). This is surgery to remove/resect a bladder tumor. During the surgery, a surgeon placed a thin, lighted tube (cystoscope)into the bladder through the urethra. The urethra is the part of your body that carries urine from the bladder to the outside of the body. The surgeon used a tool to either remove the cancer/mass or burn it away with high-energy electricity. It is not uncommon to have blood in your urine or to passsome small clots for a few days after surgery. This should resolve over the next few days. Plentiful hydration will help to resolve blood in your urine more quickly. During the Procedure What to expect during the procedure: A special tool called a cystoscope (scope) is used. This is a thin, lighted tube with a tiny lens on the end. It's used to see inside the bladder. The scope goes it into your bladder through your urethra. The urethra is a thin tube in your body that urine passes through. It connects the bladder to the outside of your body. Water is put in through the scope to fill the bladder. This stretches the bladder to give your healthcare provider a better view of the inside lining. A long, thin surgical tool is passed through the scope into the bladder. It's used to take out small samples of tissue from the bladder lining and the layers right under it. An electric tool or lasermay be used to take out tissue and stop any bleeding. Your doctor may use the scope to insert medicine into your bladder. The medicine will destroy pieces of tumor in your bladder and help prevent new tumors from growing. When the procedure is over, the scope is removed and the bladder is drained. A soft, thin tube (called a Hurley catheter) may be put in your bladder to drain urine while the bladder heals. Follow Up: We will call you with pathology which will determine follow up. If you need to cancel orreschedule the appointment please call [phone]. The [facility] is located at [address] [place] [address], [address], [place] [address]. The phone number to clinic is [phone] if you need to cancel or re-schedule. Please arrive 15 minutes early. The [facility] is located at the [facility] level 2. The phone number is [phone]. The address is [address] [place] [address]. [facility] [address]. Please arrive 15 minutes early to your appointment. Post Operative Pain Control: - You can take Tylenol (acetaminophen) and Motrin (Ibuprofen) in alternating fashion every 4-6 hours, especially in the first 24-48 hours after surgery, then as needed thereafter. - You may also be prescribed narcotic pain medication such as Oxycodone, [place], or Tramadol. This should be taken as needed for severe pain only. Do not drink alcohol, drive, or operate heavy machinery while taking this type of medication. If the narcotic is [place], please understand that [place] has Tyelonol in it. If you are also taking Tylenol or other Tylenol containing products make sure you donot exceed 4g (4000mg) of Tylenol within a 24 hour time period. Bowel Regimen/Constipation in the Post-Op Period: You are encouraged to take the medications below to prevent constipation during your recovery, especially if you are taking narcotic pain medications. - You may take Colace/Docusate, a stool softener, twice daily during your healing period. This prevents constipation or straining while having a bowel movement. - You can also take a laxative such as Miralax daily to further help with post op constipation. - If you are still experiencing constipation after 2-3 days of taking Miralax, you're encouraged totry Senna (a stimulant) daily. - Ideally, your bowel movements should be soft and not require any straining. However if diarrhea starts to occur it's recommended to stop Senna first, then stop Miralax and finally, the Colace/Docusate if necessary. - The above medications, along with adequate fluid intake, decreased use of narcotics and activity (eg walking), should help prevent constipation. Self-Care: - Drink plenty of water and try to limit the amount of caffeine you drink. Caffeine may be found incoffee, tea, soda, sports drinks, and foods. Caffeine can irritate the bladder - Do not drive while on narcotic pain medications nor in the first 24 hours after anesthesia. - Please ask your surgeon when it is ok to return to work. - Get up and walk around, but avoid strenuous exercise or rigorous activity until you feel better. You can likely return to your normal daily routine in 1 to 2 days. In Case of an Emergency: Return to the Emergency Department for any intractable nausea, vomiting, pain, shortness of breath,chest pain, fever greater than 100.4. Also you should return to the emergency room if you are unable to void or have heavy bleeding/clots from your urethra. If you have any questions about your surgery or the recovery process, please contact [facility] [phone] (Option #1: scheduling, Option #2 Nurse line, Option #3 surgery scheudler, Option#4 administration) on weekdays during regular business hours. If you have an urgent or emergent question on a weekend or after regular business hours, please contact [facility] at [phone] and ask for the provider semiconductor dies loader for Urology. In addition, please contact us using the numbers provided above if you experience any of the following issues: -- temperature higher than 100.4F -- if you cannot urinate for 6-8 hours after your surgery or if you become uncomfortable -- pain that gets worse or does not get better after taking your pain medication(s) as directed -- nausea or vomiting or cannot eat or drink -- bleeding from your incision or IV site -- if your incision or IV site looks infected (red, swollen, warm to the touch, or non-clear, foul-smelling drainage) E CLEANER documented in this encounter Medications at Time of Discharge Medication Sig Dispensed Refills Start Date End Date albuterol (PROVENTIL;VENTOLIN) (2.5 MG/3ML) 0.083% nebulizer solution Inhale 2.5 (two and one-half) mg by mouth every 4 hours as needed for Shortness of Breath 75 mL 11/03/2021 albuterol HFA (PROAIR HFA) 108 (90 Base) MCG/ACT inhalerIndications:Sta ge 2 moderate COPD by GOLD classification ([facility]) Inhale 2 (two) puffs by mouth every 4 hours as needed 8.5 g 11 01/05/2022 ascorbic acid (Vitamin C) 500 MG tablet Take 1 (one) tablet by mouth once daily cetirizine (ZYRTEC) 10 MG tablet cetirizine 10 mg tablet TAKE 1 TABLET BY MOUTH ONCE DAILY NEEDED clopidogrel (PLAVIX) 75 MG tablet Take 1 (one) tablet by mouth once daily 90 tablet 12/08/2021 cromolyn (CROLOM) 4 % ophthalmic solution Instill 1 drop into both eyes 3 times daily 10 mL 4 06/12/2020 cyclobenzaprine (Flexeril) 10 MG tablet 1 po tid prn Eliquis 5 MG tablet Take 1 (one) tablet by mouth every 12 hours 11/02/2023 EPINEPHrine (EPIPEN) 0.3 MG/0.3ML auto-injector pen epinephrine 0.3 mg/0.3 mL injection, auto-injector evolocumab (REPATHA SURECLICK) 140 MG/ML auto-injector INJECT 1 PEN UNDER THE SKIN EVERY 14 DAYS 6 mL 4 05/29/2022 ezetimibe (ZETIA) 10 MG tablet Take 1 (one) tablet by mouth once daily 90 tablet 4 12/08/2021 fluticasone propionate (Flonase) 50 MCG/ACT nasal spray USE 1 SPRAY(S) IN EACH NOSTRIL ONCE DAILY hyoscyamine (Levsin) 0.125 MG IR tablet TAKE 1 TABLET BY MOUTH EVERY 4 HOURS NEEDED FOR SPASMS 30 tablet 11/30/2023 ibuprofen (MOTRIN) 600 MG tablet Take 1 (one) tablet by mouth every 6 hours as needed (for post operative pain) 30 tablet 03/23/2022 losartan (COZAAR) 100 MG tablet Take 1 (one) tablet by mouth once daily 90 tablet 4 12/08/2021 metFORMIN (GLUCOPHAGE) 500 MG tablet Take 1 (one) tablet by mouth 2 times daily with morning and evening meal 12/27/2016 metoclopramide (Reglan) 5 MG tablet Take 1 (one) tablet by mouth every 6 hours as needed multivitamin daily tablet Take 1 (one) tablet by mouth daily with food nitroGLYCERIN (NITROSTAT) 0.4 MG tablet Dissolve 1 (one) tablet under the tongue every 5 minutes as needed for Angina 100 tablet 4 12/08/2021 sotalol (Betapace) 80 MG tablet Take 1.5 (one and one-half) tablets by mouth every 12 hours 10/28/2023 vitamin D, ergocalciferol, (DRISDOL) 89398 UNITS capsule Take 1 (one) capsule by mouth every 7 days 01/29/2019 acetaminophen (TYLENOL) 325 MG tablet Take 2 (two) tablets by mouth every 6 hours as needed for Fever or Pain Maximum allowable Acetaminophen amount = 4 Grams (4000 mg) / 24 hours. 60 tablet 03/23/2022 06/21/2024 FLUoxetine (PROzac) 20 MG capsule Take 1 (one) capsule by mouth once daily 30 capsule 1 11/19/2023 01/17/2024 LORazepam (Ativan) 0.5 MG tablet Take 1 (one) tablet by mouth 3 times daily for 30 days 90 tablet 11/19/2023 12/16/2023 oxyBUTYnin CR 24hr (Ditropan XL) 15 MG tabletIndications:Anastasiya gnant neoplasm of urinary bladder, unspecified site (HCC),Bladder spasms,Urinary frequency Take 1 (one) tablet by mouth once daily 90 tablet 4 11/01/2023 09/01/2024 oxyCODONE, immediate release, (Roxicodone) 5 MG tabletIndications:Anastasiya gnant neoplasm of urinary bladder, unspecified site (HCC) Take 1 (one) tablet by mouth every 6 hours as needed for Pain 6 tablet 12/07/2023 01/06/2024 pantoprazole EC (PROTONIX) 40 MG tabletIndications:need follow up visit for further [phone] option 1 Take 1 (one) tablet by mouth once daily Reasons: need follow up visit for further [phone] option 1 90 tablet 3 01/23/2022 06/15/2024 Symbicort 160-4.5 MCG/ACT inhalerIndications:Sta ge 2 moderate COPD by GOLD classification (HCC) INHALE 2 PUFFS BY MOUTH TWICE DAILY 10.2 g 07/07/2023 06/15/2024 traZODone (Desyrel) 50 MG tablet Take 1 (one) tablet by mouth nightly as needed For insomnia. 30 tablet 1 11/19/2023 01/06/2024 documented as of this encounter H&P Notes * Belkys Taylor, MEI-HVAC SERVICE TECHNICIAN - 12/07/2023 6:22 AM CST [facility] Urologic Surgery Pre-Operative H&P Today's Date: 12/07/2023 Patient Name: Arnold Cruz : 1960 HISTORY OF PRESENT ILLNESS (HPI): Arnold Cruz is a 62 year old year old female with a history of high risk non- muscle invasive bladder cancer who presents today for a scheduled TRANSURETHRAL RESECTION BLADDER TUMOR (TURBT) LEFT RETROGRADE PYELOGRAM, URETERAL STENT PLACEMENT (Left) with Dr. Oliver hx: 01/2022: TURBT, HG pT1 , CT with left hydroureter and lateral wall lesion 03/2022: Repeat TURBT: no malignancy 07/2022: Office cysto, negative 11/2022: Office cysto: erythematous changes of bladder mucosa 01/2023: Bluelight cysto, TURBT: no malignancy 04/2023: office cysto, negative PAT: Anesthesia assessed patient on 11/22/23 who noted no further work-up needed for this procedure. Final clearance pending evaluation by the attending Anesthesiologist on the day of surgery. Medical/Cardiac clearance: cards clearance in media : Dr. Porter NPO>8 hours? : Yes Anticoagulants in past 7 days? ASA- no longer taking. Eliquis and Plavix- held x5 days Pre-admission antibiotics? none. Ux 11/24 negative Social History: Current smoker- 1pk per day Denies daily drinking Recreational drug use- occasional marijuana use ALLERGIES: Allergies Allergen Reactions ??? Azithromycin Unknown ??? Risperidone Other Reported her face getting swollen ??? Statins [Hmg-Coa-R Inhibitors] Other Causes muscle tightness ??? Haloperidol Other unknown ??? Bee Venom Swelling ??? Codeine Itching ??? Triazolam Unknown PAST MEDICAL HISTORY: Past Medical History: Diagnosis Date ??? Anxiety ??? Asthma ??? Atherosclerosis of coronary artery ??? Bladder cancer (CMS-HCC) ??? Cardiac dysrhythmia afib ??? Chest pain pain 10/23 ??? Chronic obstructive pulmonary disease (COPD) (CMS-HCC) ??? Depression ??? Essential hypertension ??? GERD (gastroesophageal reflux disease) ??? History of diabetes mellitus ??? Obesity ??? Peripheral vascular disease (CMS-HCC) stents in both legs ??? Pure hypercholesterolemia ??? Sleep apnea does not use CPAP ??? Snoring ??? TIA (transient ischemic attack) PAST SURGICAL HISTORY: Past Surgical History: Procedure Laterality Date ??? Cholecystectomy 2006 ??? HX C SECTION CLASSIC 1989 ??? HX CAROTID ENDARDECTOMY 2014 ??? HX TUBAL LIGATION 1989 ??? OTHER SURGERY excision of anal warts ??? OH FOOT/TOES SURGERY PROC UNLISTED ??? TRANS URETHRAL RESECT BLADDER TUMOR 03/23/2022 TRANSURETHRAL RESECTION BLADDER TUMOR (TURBT) ??? TRANS URETHRAL RESECT BLADDER TUMOR N/A 01/18/2023 N/A; Blue light cystoscopy and transurethral resection of bladder tumor ??? Tympanostomy 2013 ??? URETEROSCOPY Left 03/23/2022 Left; URETEROSCOPY FAMILY HISTORY: Family History Problem Relation Name Age of Onset ??? Depression Mother ??? Alcohol abuse Father ??? Depression Sister ??? Thyroid Disease Neg Hx SOCIAL HISTORY: Social History Socioeconomic History ??? Marital status: Single Spouse name: Not on file ??? Number of children: Not on file ??? Years of education: Not on file ??? Highest education level: Not on file Occupational History ??? Not on file Tobacco Use ??? Smoking status: Every Day Packs/day: 0.25 Years: 40.00 Additional pack years: 0.00 Total pack years: 10.00 Types: Cigarettes ??? Smokeless tobacco: Never ??? Tobacco comments: pt said she will quit in 09/2021 Vaping Use ??? Vaping Use: Never used Substance and Sexual Activity ??? Alcohol use: No ??? Drug use: Yes Types: Marijuana Comment: either edible or smoke joint 1 time per week ??? Sexual activity: Not on file Other Topics Concern ??? 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 Date last employed: 30 years ago Social Determinants of Health Financial Resource Strain: Not on file Food Insecurity: Not on file Transportation Needs: Not on file Stress: Not on file Housing Stability: Not on file MEDICATIONS: Current Facility-Administered Medications Medication Dose Route Frequency Provider Last Rate Last Admin ??? 0.9% NaCl injection 3 mL 3 mL Intracatheter q8h Jessica Taylin EQUIPMENT SCHEDULER-HVAC SERVICE TECHNICIAN And ??? 0.9% NaCl injection 1-10 mL 1-10 mL Intracatheter PRN Xiomara Tay EQUIPMENT SCHEDULER-HVAC SERVICE TECHNICIAN ??? acetaminophen (Tylenol) tablet 1,000 mg 1,000 mg Oral pre-OP once Jasmin Moore APRN-CNP ??? ceFAZolin (Ancef) 2 g in 0.9% NaCl IV 50 mL IVPB 2 g Intravenous intra-OP once Xiomara Tay APRN-HVAC SERVICE TECHNICIAN ??? insulin regular human (HumuLIN R; NovoLIN R) 100 UNIT/ML injection 0-6 Units 0-6 Units Intravenous Once Jasmin Moore APRN-CNP ??? lactated ringers infusion Intravenous Continuous Xiomara Tay APRN-HVAC SERVICE TECHNICIAN ??? lactated ringers infusion Intravenous pre-OP continuous Jasmin Moore APRN-CNP REVIEW OF SYSTEMS: General: Negative Skin: Negative Eyes: Negative Ears/nose/mouth: Negative Lungs:Negative Heart:Negative Gastrointestinal: Negative Genitourinary: + bladder cancer Musculoskeletal: Negative Nervous system: Negative Reproductive system: Negative Hematologic: Negative Lymphatic: Negative Endocrine: Negative PHYSICAL EXAM: There were no vitals taken for this visit. Constitutional: Appears well, no distress HEENT: Hoarse voice Respiratory: Normal respiratory rate and effort, CTAB, diminished in bases Cardiovascular: RRR Ext: No edema,cyanosis, CHAUDHRY, 2+ pulses BLE GI: Soft, non-tender, non-distended : deferred Laboratory Review: Pertinent labs: Recent Labs Component Name 11/22/23 1036 HGBA1C 6.4* No results found for: PSA Recent Labs Component Name 11/22/23 1036 03/11/22 1045 10/06/21 1600 10/21/20 0812 09/04/20 0729 NA 141 - 140 - 138 POTASSIUM 4.3 3.7 3.5 - 3.8 BUN 25 18 18 - CREATININE 0.72 1.18* 0.97* - 0.7 GLUCOSE 126* 172* 124* - 181* - = values in this interval not displayed. Recent Labs Component Name 11/22/23 1036 03/11/22 1045 10/06/21 1600 WBC 9.9 12.5* 10.2 HGB 13.6 14.9 13.5 HCT 40.8 46.2* 41.4 Recent Labs Component Name 10/21/20 0812 INR 1.0 Bilirubin UA POCT Date Value Ref Range Status 10/22/2023 - Final Ketones UA POCT Date Value Ref Range Status 10/22/2023 - Final Specific [place] UA Date Value Ref Range Status 10/22/2023 1.000 Final Nitrite UA Date Value Ref Range Status 10/22/2023 - Final Mirco: No results for input(s): URINECULT in the last 64565 hours. CULTURE URINE Order: [id number] Collected 11/24/2023 13:43 ?? Status: Final result ?? Visible to patient: No (not released) ?? 0 Result Notes Component Culture Comment: ?? CULTURE, URINE, ROUTINE ? Micro Number: ?[id number] ?? Test Status: ? Final ?? Specimen Source: ?? Urine, clean catch ?? Specimen Quality: ??Adequate ?? Result: ?Mixed genital unruly isolated. These superficial ?bacteria are not indicative of a urinary tract ?infection. No further organism identification is ?warranted on this specimen. If clinically ?indicated, recollect clean-catch, mid-stream ?urine and transfer immediately to Urine Culture ?Transport Tube. REPORT COMMENT: FASTING:NO Test Performed at: [facility] [address] ??[id number] GISELE JUSTICE MD Pathology: Most recent pathology Collected 01/18/2023 09:18 ?? Status: Final result ?? Visible to patient: No (not released) ?? Dx: Malignant neoplasm of urinary bladder... ?? 0 Result Notes Component Final Diagnosis Bladder, left neck, biopsy (A): - Denuded urothelium with focal cytologic atypia, see comment - Muscularis propria present ?? Bladder, right posterior wall, biopsy (B): - Denuded urothelium with follicular cystitis and cystitis cystica - Muscularis propria not present ?? Bladder, left dome, biopsy (C): - Benign, largely denuded urothelium with marked stromal inflammation and granulation tissue - Muscular propria present Review of Imaging Reports: Results for orders placed during the hospital encounter of 10/22/23 CT UROGRAM Impression 1. An infiltrative bladder mass on the [...] There is no evidence of free air. DIAGNOSIS: Bladder cancer PLAN OF CARE: To OR this day for TRANSURETHRAL RESECTION BLADDER TUMOR (TURBT) (Bladder) LEFT RETROGRADE PYELOGRAM (Left) URETERAL STENT PLACEMENT (Left) ?? NPO for surgery today Surgical abx prophylaxis ordered Patient understands risks and benefits of surgery. Surgical and blood consent obtained and placed in chart. Belkys Taylor APRN-HVAC SERVICE TECHNICIAN 12/07/2023 6:22 AM E CLEANER documented in this encounter OR Notes * Brief Op Note - Kenan Argueta MD - 12/07/2023 7:45 AM CST Brief Op Note Procedure: TRANSURETHRAL RESECTION BLADDER TUMOR (TURBT), LEFT RETROGRADE PYELOGRAM, LEFT URETEROSCOPY, LEFT URETERAL BIOPSY Patient Name: Arnold Cruz Date of Service: 12/07/2023 Pre-Op Diagnosis: Malignant neoplasm of urinary bladder, unspecified site Post-Op Diagnosis: same Surgeon(s) and Role: * Jose Oliver MD - Primary * Kenan Argueta MD - Resident - Assisting Gis Analyst(s): non Anesthesia Type: general LMA Complications: none Findings: small raised areas adjacent to left UO resected for sampling. Distal ureteral narrowing resulting in upstream hydro. No distinct mass in bladder or ureter. Cytology and brush biopsy from left ureter EBL: blood loss of 3 ml Urine Output : none IV Fluid Intake: per anesthesia Drains: * No LDAs found * Specimen(s): ID Type Source Tests Collected by Time Destination A : Bladder Tumor Biopsy, Excision Soft Tissue, Other PATHOLOGY TISSUE Jose Oliver MD 12/07/2023 0755 B : Left Ureteral Cytology Biopsy, Excision Soft Tissue, Other PATHOLOGY TISSUE Jose Oliver MD 12/07/2023 0811 C : Left Ureteral [place] Biopsy Biopsy, Excision Soft Tissue, Other PATHOLOGY TISSUE Jose Oliver MD 12/07/2023 0813 Implant(s): * No implants in log * Kenan Argueta MD E CLEANER * Operative - Jose Oliver MD - 12/07/2023 5:51 AM CST Operative Report NAME: ARNOLD CRUZ : 1960 AGE: 62 PROC DATE: 12/07/2023 SEX: F SURGEON: Jose Oliver MD SURGEON: Jose Oliver M.D. RESIDENT PHYSICIAN: Kenan Argueta M.D. PREOPERATIVE DIAGNOSIS: Bladder cancer and left hydronephrosis. POSTOPERATIVE DIAGNOSIS: Bladder cancer and left hydronephrosis. PROCEDURE: Cystoscopy, transurethral resection of bladder tumor (0.5 to 2 cm), left retrograde pyelogram and left diagnostic ureteroscopy with brush biopsy. INDICATIONS: This is a 62-year-old female who has got a history of a high-grade PT1 bladder cancer diagnosed in January 2022. This involved the left trigone and was associated with left hydroureter. She was recently undergoing a repeat surveillance cystoscopy in the office, appeared to have erythematous changes around the left ureteral orifice that were concerning for recurrence as well as CT scan showing concern for progression of her left-sided hydronephrosis. She was taken to the operating room for further evaluation. ANESTHESIA: General. ESTIMATED BLOOD LOSS: Minimal. SPECIMEN: 1. Bladder tumor. 2. Left renal cytology. 3. Left ureteral brush biopsy. FINDINGS: Erythema within the bladder, no obvious papillary mass, suspected stricture changes in the distal ureter without papillary mass as well. DISPOSITION: PACU in stable condition. DESCRIPTION OF PROCEDURE: The patient was properly identified in the preoperative holding area. Informed consent had been obtained. Once in the operating room, a timeout was performed. Site and procedure were confirmed. Anesthesia was induced. She was intubated. She was put into the dorsal lithotomy position. Her genitals were prepped and draped in sterile fashion. We placed a 25-Romanian continuous flow resectoscope through the urethra into the bladder. We had sterile water irrigation and monopolar cautery. Within the bladder, she was noted to have a 1 cm erythematous patch just medial to the left ureteral orifice. Left ureteral orifice was displaced somewhat laterally consistent with history of previous disease in this area. No other lesions were seen. Using a resectoscope, we resected the erythematous changes in the bladder that were medial to the left ureteral orifice and sent this off as bladder tumor. Muscle was seen in the specimen. It was cauterized with good hemostatic effect. We then used a 22-Romanian scope and cannulated the left ureter with a 5-Romanian open-ended catheter and performed a retrograde pyelogram. Contrast was injected showing narrowing of the distal ureter atthe intramural portion with upstream distal, mid, proximal hydroureteronephrosis and mild blunting of the calices without significant renal pelvis dilation. We then assembled a semirigid ureteroscope and navigated this into the left ureter. In doing so, wewere able to navigate to the mid ureter. We noted concentric narrowing of the intramural distal ureter, mild erythematous effect without definitive mass or papillary changes. Given her history of disease though, we did evaluate by obtaining a left ureteral cytology and then used a brush biopsy within the intramural ureter to obtain a brush biopsy as well. The scope was then removed. Her bladder was drained. She was awoken from anesthesia and taken to PACU in stable condition. DISPOSITION: She will be called with pathology results to determine next steps in care. MD KAPIL Craig/melba .[id number] .[id number] Doc ID: [id number] Voice Job ID: [id number] E CLEANER documented in this encounter Plan of Treatment Upcoming Encounters Date Type Department Care Team (Late st Contact Info) Description 01/19/2025 11:30 AM STOVE CLEANER Procedure visit [facility] - Urology [address] [place] [address] [address] [place] [id number] Jose Oliver MD [address] [place] [id number] documented as of this encounter Goals Goal [...] Procedure Name Priority Date/Time Associated Diagnosis Comments FL CYSTO SURGERY Routine 12/07/2023 8:10 PM STOVE CLEANER Malignant neoplasm of urinary bladder, unspecified site (HCC) GLUCOSE - POINT OF CARE Routine 12/07/2023 8:38 AM STOVE CLEANER CYTOLOGY NON-WOODEN TANK ERECTOR PANEL (STL) Routine 12/07/2023 8:21 AM STOVE CLEANER Malignant neoplasm of urinary bladder, unspecified site (HCC) PATHOLOGY TISSUE Routine 12/07/2023 7:55 AM STOVE CLEANER Malignant neoplasm of urinary bladder, unspecified site (HCC) OH CYSTO/URETERO/GEORGES LOSCOPY, DX 12/07/2023 7:45 AM STOVE CLEANER Malignant neoplasm of urinary bladder, unspecified site (HCC) Case Notes Reviewed 11/29 OH CYSTOURETHROSCOPY ,URETER CATHETER 12/07/2023 7:45 AM STOVE CLEANER Malignant neoplasm of urinary bladder, unspecified site (HCC) Case Notes Reviewed 11/29 OH CYSTOURETHROSCOPY ,FULGUR 2-5CM LESN 12/07/2023 7:45 AM STOVE CLEANER Malignant neoplasm of urinary bladder, unspecified site (HCC) Case Notes Reviewed 11/29 GLUCOSE - POINT OF CARE Routine 12/07/2023 6:31 AM STOVE CLEANER documented in this encounter Results * FL CYSTO SURGERY (12/07/2023 8:10 PM STOVE CLEANER) Narrative [facility] - 12/07/2023 8:10 PM STOVE CLEANER Fluoroscopy was used for this exam in the OR. Please see the Operative report. Jose Oliver MD FLUOROSCOPY ORDERA BLES [facility] * (ABNORMAL) GLUCOSE - POINT OF CARE (12/07/2023 8:38 AM STOVE CLEANER) Pathologist [facility] Glucose WB/POC 135(H) 70 - 115 mg/dL 12/07/2023 8:43 AM STOVE CLEANER [facility] Specimen Type Cap Fingerstick 2023 8:43 AM STOVE CLEANER [facility] Blood BLOOD SPECIMEN / Unknown 12/07/2023 8:38 AM STOVE CLEANER 12/07/2023 8:43 AM STOVE CLEANER Jose Oliver MD LAB - POINT OF CAR E ORDERABLES [facility] [address] [address], [facility] [phone] * CYTOLOGY NON-WOODEN TANK ERECTOR PANEL (STL) (12/07/2023 8:21 AM STOVE CLEANER) Case Report Medical Cytology Report ? Case: [id number] ? Authorizing Provider: ??Jose Oliver MD ?Collected: ? 12/07/2023 08:21 AM ? Ordering Location: ? [facility] ?Received: ?12/07/2023 02:59 PM ? Pathologist: ? Jose Rico MD ? Specimen: ?Body Fluid , left ureteral ? 12/09/2023 12:32 PM [facility] Specimen Adequacy Adequate cellularity for evaluation. 12/09/2023 12:32 PM [facility] Final Diagnosis Left ureter, cytology from cystoscopy: - Atypical urothelial cells 12/09/2023 12:32 PM [facility] Clinical History The patient is [...] no obvious papillary mass. 12/09/2023 12:32 PM [facility] Gross Description 1 pap stained cytospin slide from 10cc pink fluid 12/09/2023 12:32 PM [facility] Microscopic Description Microscopic examination substantiates the final diagnosis. 12/09/2023 12:32 PM [facility] Pathologist Location at [facility] 12/09/2023 12:32 PM [facility] Disclaimer The performance characteristics of all immunohistochemical and indirect immunofluorescence stains (if any) cited in this report were determined by the Histopathology Laboratory of [facility]. Some of these tests rely on the use of analyte-specific reagents and are subject to specific labeling requirements by the [place] Food and Drug Administration. Such tests were developed by the Histology Laboratory of [facility] and have not been cleared or approved [...] the attending (teaching) pathologist. 12/09/2023 12:32 PM [facility] Embedded Images 12/09/2023 12:32 PM [facility] Pathology/Cytolo gy BODY FLUID SPECIMEN / Unknown Collection / Unknown 12/07/2023 8:21 AM STOVE CLEANER 12/07/2023 2:59 PM STOVE CLEANER Jose Oliver MD LAB - PATHOLOGY/CY TOLOGY ORDERABLES Performing Organization Address [facility] Co de Phone Number [facility] [address] [phone] * PATHOLOGY TISSUE (12/07/2023 7:55 AM STOVE CLEANER) Case Report Surgical Pathology Report ? Case: [id number] ? Authorizing Provider: ??Jose Oliver MD ?Collected: ? 12/07/2023 07:55 AM ? Ordering Location: ? [facility] ?Received: ?12/07/2023 01:29 PM ? Pathologist: ? Memo Suarez MD ? Specimens: ?? A) - Bladder Biopsy, Bladder Tumor ? B) - Ureter Biopsy, Left Ureteral [place] Biopsy ? 12/09/2023 3:44 PM [facility] Final Diagnosis Urinary bladder, tumor, biopsy (A): - Fragments of predominantly denuded urothelium with follicular cystitis - No definite muscularis propria present - Negative for carcinoma Ureter, left, biopsy (B): - No diagnostic tissue present, see comment 12/09/2023 3:44 PM [facility] Microscopic Description and Comment Multiple deeper levels were examined on both parts A and B. Sections of the bladder (A) show areas of chronic inflammation and edema with denuded mucosa, compatible with follicular cystitis. The part A was compared with prior biopsy slides ([id number]). No significant atypia or malignancy seen in the current specimen. Sections of the left ureter biopsy (B) shows an area of acellular debris and some red blood cells without any viable tissue present. 12/09/2023 3:44 PM [facility] Clinical History This is a 62-year-old female with history of invasive urothelial cell carcinoma s/p TURBT, found to have an erythematous lesion overlying the left ureteral orifice during most recent cystoscopy. Operative procedure: Cystoscopy, transurethral resection of bladder tumor, left retrograde pyelogram and left diagnostic ureteroscopy with brush biopsy; Findings: erythema within the bladder, no obvious papillary mass. 12/09/2023 3:44 PM [facility] Gross Description The requisition and specimen(s) are identified with the patient's name, Arnold Cruz. Received in formalin, specimen A , are two rubbery hawthorne tissue fragments, 0.5 x 0.4 x 0.2 cm and 0.5 x 0.4 x 0.3 cm, submitted in toto in cassette A1. Received in formalin, specimen B an aggregate of yellow fluid, 3.0 x 2.0 x 1.0 cm, with scant bits of hawthorne tissue less than 0.1 cm in aggregate. The specimen is sent to cytology and is spun down. A cellblock is made and submitted in cassette B1. GW 12/09/2023 3:44 PM [facility] Pathologist Location at [facility] 12/09/2023 3:44 PM [facility] Disclaimer The performance characteristics of all immunohistochemical and indirect immunofluorescence stains (if any) cited in this report were determined by the Histopathology Laboratory of [facility]. Some of these tests were developed by [...] interpreted by the attending (teaching) pathologist. 12/09/2023 3:44 PM [facility] Embedded Images 12/09/2023 3:44 PM [facility] Biopsy, Excision URINARY BLADDER BIOPSY SPECIMEN / Unknown 12/07/2023 7:55 AM STOVE CLEANER 12/07/2023 1:29 PM STOVE CLEANER Comment:Pre-op diagnosis: Malignant neoplasm of urinary bladder, unspecified site Biopsy, Excision BIOPSY OF URETER / Unknown 12/07/2023 8:11 AM STOVE CLEANER 12/07/2023 1:29 PM STOVE CLEANER Comment:Pre-op diagnosis: Malignant neoplasm of urinary bladder, unspecified site Jose Oliver MD LAB - PATHOLOGY/CY TAMMY ORDERABLES [facility] [address] [place] [address], [facility] [phone] * (ABNORMAL) GLUCOSE - POINT OF CARE (12/07/2023 6:31 AM STOVE CLEANER) Glucose WB/POC 119(H) 70 - 115 mg/dL 12/07/2023 6:32 AM STOVE CLEANER [facility] Specimen Type Venous 12/07/2023 6:32 AM STOVE CLEANER [facility] Blood BLOOD SPECIMEN / Unknown 12/07/2023 6:31 AM STOVE CLEANER 12/07/2023 6:32 AM STOVE CLEANER Jose Oliver MD LAB - POINT OF CAR E ORDERABLES [facility] [address] [place] [address], [facility] [phone] documented in this encounter Visit Diagnoses Diagnosis Malignant neoplasm of urinary bladder, unspecified site (HCC)- Primary Malignant neoplasm of urinary bladder, unspecified site (HCC) documented in this encounter Administered Medications Inactive Administered Medications - up to 3 most recent administrations Medication Order MAR Action Action Date Dose Rate Site 0.9% NaCl injection 1-10 mL 1-10 mL, Intracatheter, PRN, Other, peripheral line flush, Starting on Wed12/07/23 at 0558, Until Wed12/07/23 at 1220, Flush peripheral IV catheter with 1-10 mL of normal saline before and after medications and prn to clear blood from the line or to verify patency., Pre-op 0.9% NaCl injection 3 mL 3 mL, Intracatheter, EVERY 8 HOURS, First dose on Wed12/07/23 at 0600, Until Discontinued, Flush peripheral IV catheter with 3 mL of normal saline every 8 hours., Pre-op acetaminophen (Tylenol) tablet 1,000 mg 1,000 mg, Oral, PRE-OP ONCE, 1 dose, On Wed12/07/23 at 0600, Patient preference for lesser PRN pain meds may be honored when the patient requests a less strong medication, a lower dose, or a less intrusive route of administration when the lesser drug, dose and route have been ordered for the patient. This patient request must be documented in the MAR., Pre-op $ Given 12/07/2023 6:33 AM STOVE CLEANER 1,000 mg albuterol (Proventil;Ventolin) (5 MG/ML) 0.5% nebulizer solution 2.5 mg 2.5 mg, Inhalation, POST-OP MULTIPLE, Starting on Wed12/07/23 at 0808, Until Wed12/07/23 at 1220, For wheezing. Notify anesthesia immediately., PACU $ Given 12/07/2023 9:03 AM STOVE CLEANER 2.5 mg diphenhydrAMINE (Benadryl) injection 25 mg 25 mg, Intravenous, ONCE PRN, Nausea/Vomiting, 1 dose, Starting on Wed12/07/23 at 0808, Until Wed12/07/23 at 1220, Second choice, use if first choice was ineffective., PACU diphenhydrAMINE (Benadryl) injection 25 mg 25 mg, Intravenous, POST-OP MULTIPLE, Starting on Wed12/07/23 at 0808, Until Wed12/07/23 at 1220, IV for itching - may repeat x1 dose in 15 minutes., PACU fentaNYL (PF) (Sublimaze) injection 25 mcg 25 mcg, Intravenous, EVERY 5 MIN PRN, Mild Pain, 4 doses, Starting on Wed12/07/23 at 0808, Until Wed12/07/23 at 1220, Maximum total of 4 doses. If patient reaches max total dose, please consult anesthesiologist prior to further administration of pain meds. Hold pain meds if there are signs of hypoventilation. Patient preference for lesser PRN pain meds may be honored when the patient requests a less strong medication, a lower dose, or a less intrusive route of administration when the lesser drug, dose and route have been ordered for the patient. This patient request must be documented in the MAR., PACU fentaNYL (PF) (Sublimaze) injection 50 mcg 50 mcg, Intravenous, EVERY 5 MIN PRN, Moderate Pain, 4 doses, Starting on Wed12/07/23 at 0808, Until Wed12/07/23 at 1220, Maximum total of 4 doses. If patient reaches max total dose, please consult anesthesiologist prior to further administration of pain meds. Hold pain meds if there are signs of hypoventilation. Patient preference for lesser PRN pain meds may be honored when the patient requests a less strong medication, a lower dose, or a less intrusive route of administration when the lesser drug, dose and route have been ordered for the patient. This patient request must be documented in the MAR., PACU $ Given 12/07/2023 9:25 AM STOVE CLEANER 50 mcg $ Given 12/07/2023 9:10 AM STOVE CLEANER 50 mcg $ Given 12/07/2023 9:00 AM STOVE CLEANER 50 mcg hydrALAZINE (Apresoline) injection 5 mg 5 mg, Intravenous, POST-OP MULTIPLE, Starting on Wed12/07/23 at 0808, Until Wed12/07/23 at 1220, IV given slowly over 1 minute, up to 20 mg. Repeat 5 mg IV dose every 10-15 minutes for sustained hypertension SBP greater than 180, DBP greater than 100., PACU HYDROmorphone (Dilaudid) injection 0.5 mg 0.5 mg, Intravenous, EVERY 10 MIN PRN, Severe Pain, 4 doses, Starting on Wed12/07/23 at 0808, Until Wed12/07/23 at 1220, Maximum total of 4 doses If patient reaches max total dose, please consult anesthesiologist prior to further administration of pain meds. Hold pain meds if there are signs of hypoventilation. Patient preference for lesser PRN pain meds may be honored when the patient requests a less strong medication, a lower dose, or a less intrusive route of administration when the lesser drug, dose and route have been ordered for the patient. This patient request must be documented in the MAR., PACU $ Given 12/07/2023 8:50 AM STOVE CLEANER 0.5 mg $ Given 12/07/2023 8:40 AM STOVE CLEANER 0.5 mg iohexol (Omnipaque 300) contrast PRN, Starting on Wed12/07/23 at 0814, Until Wed12/07/23 at 0825, Intra-op $ Given 12/07/2023 8:14 AM STOVE CLEANER 15 mL Operative Site labetalol (Normodyne; Trandate) injection 5 mg 5 mg, Intravenous, POST-OP MULTIPLE, Starting on Wed12/07/23 at 0808, Until Wed12/07/23 at 1220, IV given slowly over 1 minute up to 20 mg. Repeat every 10-15 minutes in 5 mg doses. Hold if heart rate is less than 60. Give for hypertension SBP greater than 180, DBP greater than 100., PACU lactated ringers infusion at 75 mL/hr, Intravenous, CONTINUOUS, Starting on Wed12/07/23 at 0600, Until Wed12/07/23 at 1220, Pre-op lactated ringers infusion at 20 mL/hr, Intravenous, PRE-OP CONTINUOUS, Starting on Wed12/07/23 at 0600, Until Wed12/07/23 at 1220, Pre-op $ New Bag/Syringe 12/07/2023 6:33 AM STOVE CLEANER 20 mL/hr lactated ringers infusion at 125 mL/hr, Intravenous, CONTINUOUS, Starting on Wed12/07/23 at 0815, Until Wed12/07/23 at 1220, PACU naloxone (Narcan) injection 0.04 mg 0.04 mg, Intravenous, POST-OP MULTIPLE, Starting on Wed12/07/23 at 0808, Until Wed12/07/23 at 1220, If respiration rate is less than 7 per minute administer IV every 1 minute until respirations are greater than 12 per minute. Notify anesthesia immediately., PACU ondansetron (Zofran) injection 4 mg 4 mg, Intravenous, ONCE PRN, Nausea/Vomiting, 1 dose, Starting on Wed12/07/23 at 0808, Until Wed12/07/23 at 1220, Third choice, use if first and second choice was ineffective., PACU oxyCODONE (immediate release) (Roxicodone) tablet 5 mg 5 mg, Oral, Once, 1 dose, On Wed12/07/23 at 1015, Patient preference for lesser PRN pain meds may be honored when the patient requests a less strong medication, a lower dose, or a less intrusive route of administration when the lesser drug, dose and route have been ordered for the patient. This patient request must be documented in the MAR. $ Given 12/07/2023 10:25 AM STOVE CLEANER 5 mg prochlorperazine (Compazine) injection 10 mg 10 mg, Intravenous, ONCE PRN, Nausea/Vomiting, 1 dose, Starting on Wed12/07/23 at 0808, Until Wed12/07/23 at 1220, First choice, PACU documented in this encounter Active and Recently Administered Medications Times are shown in STOVE CLEANER. Scheduled Medication Order 12/05/2023 12/06/2023 12/07/2023 0.9% NaCl injection 3 mL(Linked Group 1) 3 mL, Intracatheter, EVERY 8 HOURS, First dose on Wed12/07/23 at 0600, Until Discontinued, Flush peripheral IV catheter with 3 mL of normal saline every 8 hours., Pre-op 0600 (Due) acetaminophen (Tylenol) tablet 1,000 mg (COMPLETED) 1,000 mg, Oral, PRE-OP ONCE, 1 dose, On Wed12/07/23 at 0600, Patient preference for lesser PRN pain meds may be honored when the patient requests a less strong medication, a lower dose, or a less intrusive route of administration when the lesser drug, dose and route have been ordered for the patient. This patient request must be documented in the MAR., Pre-op 0633 ($ Given - Prov ider: Katt Torres RN) albuterol (Proventil;Ventolin) (5 MG/ML) 0.5% nebulizer solution 2.5 mg 2.5 mg, Inhalation, POST-OP MULTIPLE, Starting on Wed12/07/23 at 0808, Until Wed12/07/23 at 1220, For wheezing. Notify anesthesia immediately., PACU 0903 ($ Given - Prov ider: Ebony Colón RN) ceFAZolin (Ancef) 2 g in 0.9% NaCl IV 50 mL IVPB 2 g, at 100 mL/hr, Intravenous, INTRA-OP ONCE, 1 dose, On Wed12/07/23 at 0600, Administer 30 minutes prior to surgical incision., Indication for anti-infective therapy: Surgical prophylaxis, Pre-op 0600 (Due) diphenhydrAMINE (Benadryl) injection 25 mg 25 mg, Intravenous, POST-OP MULTIPLE, Starting on Wed12/07/23 at 0808, Until Wed12/07/23 at 1220, IV for itching - may repeat x1 dose in 15 minutes., PACU hydrALAZINE (Apresoline) injection 5 mg 5 mg, Intravenous, POST-OP MULTIPLE, Starting on Wed12/07/23 at 0808, Until Wed12/07/23 at 1220, IV given slowly over 1 minute, up to 20 mg. Repeat 5 mg IV dose every 10-15 minutes for sustained hypertension SBP greater than 180, DBP greater than 100., PACU insulin regular human (HumuLIN R; NovoLIN R) 100 UNIT/ML injection 0-6 Units 0-6 Units, Intravenous, ONCE, 1 dose, On Wed12/07/23 at 0600, POC Glucose Regular Insulin Dose 0 - 151 mg/dL = 0 units 151 - 180 mg/dL = 2 units 181 - 220 mg/dL = 3 units 221 - 260 mg/dL = 4 units 261 - 300 mg/dL = 5 units Above 300 mg/dL = 6 units . WASTE DISPOSAL INSTRUCTIONS: Black Bin Disposal required., Pre-op 0600 (Due) labetalol (Normodyne; Trandate) injection 5 mg 5 mg, Intravenous, POST-OP MULTIPLE, Starting on Wed12/07/23 at 0808, Until Wed12/07/23 at 1220, IV given slowly over 1 minute up to 20 mg. Repeat every 10-15 minutes in 5 mg doses. Hold if heart rate is less than 60. Give for hypertension SBP greater than 180, DBP greater than 100., PACU naloxone (Narcan) injection 0.04 mg 0.04 mg, Intravenous, POST-OP MULTIPLE, Starting on Wed12/07/23 at 0808, Until Wed12/07/23 at 1220, If respiration rate is less than 7 per minute administer IV every 1 minute until respirations are greater than 12 per minute. Notify anesthesia immediately., PACU oxyCODONE (immediate release) (Roxicodone) tablet 5 mg (COMPLETED) 5 mg, Oral, Once, 1 dose, On Wed12/07/23 at 1015, Patient preference for lesser PRN pain meds may be honored when the patient requests a less strong medication, a lower dose, or a less intrusive route of administration when the lesser drug, dose and route have been ordered for the patient. This patient request must be documented in the MAR. 1025 ($ Given - Prov ider: Ebony Colón RN) Continuous Medication Order 12/05/2023 12/06/2023 12/07/2023 lactated ringers infusion at 75 mL/hr, Intravenous, CONTINUOUS, Starting on Wed12/07/23 at 0600, Until Wed12/07/23 at 1220, Pre-op 0600 (Due) lactated ringers infusion at 20 mL/hr, Intravenous, PRE-OP CONTINUOUS, Starting on Wed12/07/23 at 0600, Until Wed12/07/23 at 1220, Pre-op 0633 ($ New Bag/Syri nge - Provider: Katt Torres RN) lactated ringers infusion at 125 mL/hr, Intravenous, CONTINUOUS, Starting on Wed12/07/23 at 0815, Until Wed12/07/23 at 1220, PACU 0815 (Due) PRN Medication Order 12/05/2023 12/06/2023 12/07/2023 0.9% NaCl injection 1-10 mL(Linked Group 1) 1-10 mL, Intracatheter, PRN, Other, peripheral line flush, Starting on Wed12/07/23 at 0558, Until Wed12/07/23 at 1220, Flush peripheral IV catheter with 1-10 mL of normal saline before and after medications and prn to clear blood from the line or to verify patency., Pre-op diphenhydrAMINE (Benadryl) injection 25 mg 25 mg, Intravenous, ONCE PRN, Nausea/Vomiting, 1 dose, Starting on Wed12/07/23 at 0808, Until Wed12/07/23 at 1220, Second choice, use if first choice was ineffective., PACU fentaNYL (PF) (Sublimaze) injection 25 mcg 25 mcg, Intravenous, EVERY 5 MIN PRN, Mild Pain, 4 doses, Starting on Wed12/07/23 at 0808, Until Wed12/07/23 at 1220, Maximum total of 4 doses. If patient reaches max total dose, please consult anesthesiologist prior to further administration of pain meds. Hold pain meds if there are signs of hypoventilation. Patient preference for lesser PRN pain meds may be honored when the patient requests a less strong medication, a lower dose, or a less intrusive route of administration when the lesser drug, dose and route have been ordered for the patient. This patient request must be documented in the MAR., PACU fentaNYL (PF) (Sublimaze) injection 50 mcg 50 mcg, Intravenous, EVERY 5 MIN PRN, Moderate Pain, 4 doses, Starting on Wed12/07/23 at 0808, Until Wed12/07/23 at 1220, Maximum total of 4 doses. If patient reaches max total dose, please consult anesthesiologist prior to further administration of pain meds. Hold pain meds if there are signs of hypoventilation. Patient preference for lesser PRN pain meds may be honored when the patient requests a less strong medication, a lower dose, or a less intrusive route of administration when the lesser drug, dose and route have been ordered for the patient. This patient request must be documented in the MAR., PACU 0900 ($ Given - Prov ider: Ebony Colón RN)0910 ($ Given - Provider: Ebony Colón RN)0925 ($ Given - Provider: Ebony Colón, RN) HYDROmorphone (Dilaudid) injection 0.5 mg 0.5 mg, Intravenous, EVERY 10 MIN PRN, Severe Pain, 4 doses, Starting on Wed12/07/23 at 0808, Until Wed12/07/23 at 1220, Maximum total of 4 doses If patient reaches max total dose, please consult anesthesiologist prior to further administration of pain meds. Hold pain meds if there are signs of hypoventilation. Patient preference for lesser PRN pain meds may be honored when the patient requests a less strong medication, a lower dose, or a less intrusive route of administration when the lesser drug, dose and route have been ordered for the patient. This patient request must be documented in the MAR., PACU 0840 ($ Given - Prov ider: Ebony Colón RN)0850 ($ Given - Provider: Ebony Colón RN) iohexol (Omnipaque 300) contrast (CANCELED) PRN, Starting on Wed12/07/23 at 0814, Until Wed12/07/23 at 0825, Intra-op 0814 ($ Given - Prov ider: Kenan Argueta MD - Comment: given to sterile field) ondansetron (Zofran) injection 4 mg 4 mg, Intravenous, ONCE PRN, Nausea/Vomiting, 1 dose, Starting on Wed12/07/23 at 0808, Until Wed12/07/23 at 1220, Third choice, use if first and second choice was ineffective., PACU prochlorperazine (Compazine) injection 10 mg 10 mg, Intravenous, ONCE PRN, Nausea/Vomiting, 1 dose, Starting on Wed12/07/23 at 0808, Until Wed12/07/23 at 1220, First choice, PACU Linked Groups Order Group 1: SALINE LOCK, INSERT AND MAINTAIN (CANCELED) Routine, CONTINUOUS, Starting on Wed12/07/23 at 0600, Until Specified, Pre-op, New collection And 0.9% NaCl injection 3 mLJump to med 3 mL, Intracatheter, EVERY 8 HOURS, First dose on Wed12/07/23 at 0600, Until Discontinued, Flush peripheral IV catheter with 3 mL of normal saline every 8 hours., Pre-op And 0.9% NaCl injection 1-10 mLJump to med 1-10 mL, Intracatheter, PRN, Other, peripheral line flush, Starting on Wed12/07/23 at 0558, Until Wed12/07/23 at 1220, Flush peripheral IV catheter with 1-10 mL of normal saline before and after medications and prn to clear blood from the line or to verify patency., Pre-op documented in this encounter Care Teams Upper Shaper Relationship Specialty Start Date End Date Deisi Andrews MD [address] [place] [id number] PCP - General Family Medicine 05/26/23 10/26/24 documented as of this encounter
--- OUTSIDE RECORDS SUMMARY | 2024-11-12 04:42 | XMS_ITS | Encounter Summary ---
Author Organization [facility] Health Address [address] [place] [address] Care Team Providers Care Machine Stripper Cutter Name Role Phone Deisi Andrews MD Primary Care Provider [phone] Encounter Details Date Type Department Care Team (Late st Contact Info) Description 08/04/2024 11:00 AM CDT Clinical Support [facility] - Urology [address] [place] [address] [address] [place] [address] Jose Oliver MD [address] [place] [id number] Malignant neoplasm of urinary bladder, unspecified site [...] Sign Reading Time Taken Comments Blood Pressure 101/72 08/04/2024 11:39 AM CDT Pulse 77 08/04/2024 11:39 AM CDT Temperature 36.3 ??C (97.3 ??F) 08/04/2024 11:39 AM C DT Respiratory Rate - - Oxygen Saturation 94% 08/04/2024 11:39 AM CDT Inhaled Oxygen Concentration - - Weight 81.2 kg (179 lb) 08/04/2024 11:39 AM CDT Height - - Body Mass Index 31.71 06/28/2024 2:27 PM CDT documented in this encounter Functional Status [...] Progress Notes * Jose Oliver MD - 08/05/2024 8:24 AM CDT I was present in office for BCG administration, #1 of 6 induction * Jose Oliver MD - 08/04/2024 3:42 PM CDT Patient in for BCG instillation, pt tolerated procedure well, no s/s of distress observed, pt givenpost procedure instructions documented in this encounter Miscellaneous Notes * Addendum Note - Tristen Carballo LPN - 08/11/2024 1:16 PM CDTAddended by: TRISTEN CARBALLO on: 08/11/2024 01:16 PM Modules accepted: Orders documented in this encounter Plan of Treatment Upcoming Encounters Date Type Department Care Team (Late st Contact Info) Description 01/19/2025 11:30 AM DISTILLER Procedure visit [facility] - Urology [address] [place] [address] Jose Oliver MD [address] [place] [phone] documented as of this encounter Goals Goal [...] - POINT OF CARE (AMB) [facility] Routine 08/04/2024 11:48 AM CDT Malignant neoplasm of urinary bladder, unspecified site (HCC) documented in this encounter Results * URINALYSIS AUTO - POINT OF CARE (AMB) [facility] (08/04/2024 11:48 AM CDT) Glucose UA - [facility] [address] Bilirubin UA POCT - [facility] [address] Ketones UA POCT - [facility] [address] Specific [place] UA 1.[address] [facility] [address] Blood Urine POCT - [facility] [address] pH UA 6.[address] [facility] [address] Protein UA + [facility] [address] Urobilinogen UA - [facility] [address] Nitrite UA - [facility] [address] WBC UA - [facility] [address] Urine URINE / Unknown 08/04/2024 1 1:48 AM CDT Jose Oliver MD LAB - POINT OF CAR E ORDERABLES [facility] [address] [facility] [address] [place] [address], [facility] [phone] documented in this encounter Visit Diagnoses Diagnosis Malignant neoplasm of urinary bladder, unspecified site (HCC)- Primary documented in this encounter Care Teams Machine Stripper Cutter Relationship Specialty Start Date End Date Deisi Andrews MD [address] [place] [address] [place] [address] PCP - General Family Medicine 05/26/23 10/26/24 documented as of this encounter
--- OUTSIDE RECORDS SUMMARY | 2024-11-12 04:42 | XMS_ITS | Encounter Summary ---
Author Organization [facility] Address [address] [place] [address] Care Team Providers Care Financial Representative Name Role Phone Deisi Andrews MD Primary Care Provider [phone] Reason for Visit * Auth/Cert (Routine) Specialty Diagnoses / Procedures Referred By Nacho brooks Referred To Contact Diagnoses Malignant neoplasm of urinary bladder, unspecified site (HCC) Malignant neoplasm of urinary bladder, unspecified site (HCC) Procedures NC CYSTO/URETERO/PYELOSCOPY W/BX NC URETERAL REFLUX STUDY CYSTOSCOPY WITH BIOPSY CYSTOGRAM Referral ID Status Reason Start Date Expiration Date Visits Re quested Visits Authorized [id number] 1 1 Encounter Details Date Type Department Care Team (Late st Contact Info) Description 06/21/2024 9:32 AM CDT Anesthesia Event [facility] [address] [place] [phone] Jose Ramirez MD [address] [place] [id number] Mervin Jaffe MD [address] [facility] [address] [address] Anesthesia Record Procedure Summary Procedure Name Responsible Anesthesiologist Anesthesia Start Time Anesthesia Stop Time CYSTOSCOPY, BLADDER BIOPSY (Bladder) Jose Ramirez MD 06/21/24 0932 06/21/24 1033 Events Date Time Event Comment 06/21/2024 0744 0932 An Start 0934 Pt In Room 0934 An Start Data 0937 PT Reassessment 0940 Induction 0942 Anes Ready 0950 Time Out Anesthesia part icipated in timeout at the time documented in the record by nursing 0951 Proc Start 1016 Proc Stop 1016 An Emergence 1024 an stop data 1024 ANPTO2 1024 Pt out of Room 1033 An Stop Meds Name Total midazolam 2 mg/2mL injection 2 mg fentaNYL 100 mcg/2ml injection 100 mcg lidocaine PF 2% 100 mg propofol 200mg/20mL injection 80 mg propofol 500 mg/50 mL 219.24 mg ceFAZolin (Ancef) 2 g in 0.9% NaCl IV 50 mL IVPB 2 g famotidine 20 mg/2mL injection 20 mg diphenhydrAMINE 50 mg/mL injection 25 mg lactated ringers infusion 800 mL * Agents Name Insp. N2O Exp. Sevoflurane Exp. N2O O2 Flow - Auxiliary O2 Insp. Sevoflurane * Blood No blood administrations on file. Lines, Drains, and Airways Type Details Placement Removal Peripheral IV Date: 06/21/24; Time : 805; Orientation: Left, Posterior; Location: Forearm; Gauge: 20 G 06/21/24 0806 by Lita Cotton RN 06/21/24 1130 by Estrella Cervantes RN documented in this encounter Social History Tobacco [...] of this encounter Progress Notes * Jose Ramirez MD - 06/21/2024 11:54 AM CDT ANESTHESIA POSTOP EVALUATION NOTE Procedure: CYSTOSCOPY, BLADDER BIOPSY (Bladder) CYSTOGRAM Rody Zaidi is a 63 year old female Patient Vitals for the past 6 hrs: BP Temp Pulse Resp SpO2 Pain Rating Score #1 Pain Scale/Observation Pulse - (SPO2/Cuff) 06/21/24 0809 -- 98.5 ??F (36.9 ??C) -- -- -- 8 N -- 06/21/24 0810 124/93 -- -- 16 98 % -- -- 97 bpm 06/21/24 0815 (!) 126/103 -- 97 18 96 % -- -- 96 bpm 06/21/24 0820 -- -- 98 16 95 % -- -- -- 06/21/24 0830 (!) 132/108 -- 98 18 97 % -- -- 92 bpm 06/21/24 0845 113/94 -- 90 19 95 % -- -- 90 bpm 06/21/24 0900 123/92 -- 88 14 95 % -- -- 90 bpm 06/21/24 1030 122/85 97.9 ??F (36.6 ??C) 61 12 97 % 9 N 62 bpm 06/21/24 1057 118/70 -- 56 15 97 % 8 N 60 bpm 06/21/24 1100 118/70 -- 56 20 98 % -- -- 58 bpm 06/21/24 1115 123/79 -- 58 24 97 % -- -- 61 bpm 06/21/24 1130 -- -- -- -- -- 4 N -- Anesthesia Type: MAC Pre-op Diagnosis Codes: * Malignant neoplasm of urinary bladder, unspecified site (HCC) [C67.9] Mental Status: awake, alert, oriented and sufficiently recovered from acute administration of anesthesia to participate in the evaluation Neuro Status: No numbness, tingling or visual disturbances Respiratory Function: natural Cardiac Function: stable Postop Pain: acceptable to the patient Postop Hydration: adequate Postop Nausea: none Assessment: no apparent anesthetic complications, patient tolerated procedure well and no evidence of recall Patient Disposition: Release from Anesthesia Care NOTABLE EVENTS: No notable events documented. * Jose Ramirez MD - 06/21/2024 8:51 AM CDT ANESTHESIA PREOPERATIVE EVALUATION NOTE Procedure: CYSTOSCOPY, BLADDER BIOPSY (Bladder) CYSTOGRAM Vitals: No data found. LMP: No LMP recorded. Patient is postmenopausal. OB Status: Postmenopausal ANESTHESIA PRE-EVALUATION NOTE History of Present Illness: Rody Zaidi is a 63 year old female presenting for pre-operative evaluation and optimization prior to undergoing a cystoscopy, bladder biopsy on 06/[address] Oliver for malignant neoplasm of urinary bladder. PMHx is otherwise significant for HTN (losartan, sotalol) HLD (ezetimibe, evolocumab), CAD (non-obstructive per 2020 cath, on plavix), paroxysmal a-fib (on eliquis) PVD (s/p peripheral revascularization on Plavix), carotid stenosis (s/p L carotid endarterectomy), TIA (2013), COPD (albuterol), CATHERINE, NIDDM (metformin, A1c 6.4), GERD (dexlansoprazole), obesity and MDD/GIOVANNY (fluoxetine, lorazepam). Denies prior complications from anesthesia. Allergies: Risperidone, Statins, Haloperidol, Codeine, Triazolam Functional capacity: > or equal to 4 METs with no cardiopulmonary symptoms Previous Airway Management: ETT Placed: ETT Size: 7 Blade Type: MAC Blade Size: 3 GradeGrade: 1 Mask Airway: Easy LMA Placed: LMA Size: 3 Mask Airway: Easy The patient is a current smoker (1 ppd cigarette smoker, 1 mariuana joint per week). Physical Exam: Orientation X3 Airway/Mallampati Score: II Mouth Opening Distance: 4 fingerwidths Neck ROM: full TM Distance: > 3 FB Teeth: dentures/partials upper and dentures/partials lower Heart: normal - S1 S2 Lungs: wheezing Abdomen Exam: soft Physical Exam Additional Comments: Unable to assess due to telephone encounter Review of Systems: History of anesthetic complications: Yes Sleep Apnea Risk: Yes, CPAP - non compliant Malignant Hyperthermia: No Difficult IV Access: Yes GERD: Yes, well controlled Poor Exercise Tolerance: Yes (Due to DJD and knee pain) Recent Chest Pain: No Shortness of Breath: No AICD/Pacemaker: No Renal Disease: No Diagnostic Tests: Stress Test(s) reviewed: Yes (09/16/23: No diagnostic ST changes. Global left ventricular function is normal. Left ventricular ejection fraction is 69 %. Myocardial perfusion imaging is normal. Recommend follow up with leather worker.). Lab(s) reviewed: Yes (CMP, CBC 11/22/23 WNL). Other Findings: 10/22/20 - carotid duplex: - The right internal carotid artery has 5079% stenosis. - The left internal carotid artery has less than 50% stenosis. - Significant stenosis of the left external carotid artery. 10/24/20 - heart cath: i. Left main: Left main has no angiographically significant vessel. It divides into LAD, LCx and Ramus branches. ii. LAD: Proximal LAD has 50-60% focal stenosis. Mild to distal LAD has mild disease. iii. LCx: Dominant vessel. No significant disease in the proximal portion. Mid LCx has 30% stenosis. There is small caliber LPDA with mild disease. iv. RCA: Non dominant, small caliber vessel with mild disease. v. Other angiography: Ramus intermedius: There is mild diffuse disease in the proximal RI.Mid Ramushas 30-40% stenosis before it divides into two branches. Remainder of Ramus has trivial disease. Start of PAT Evaluation: - if BP is poorly controlled (eg SBP >180 or DBP >110) then contact Dr. Dubon or AIC - if patient taking CHRISTINA-I or ARB or Entresto then hold ONLY AM dose on DOS unless severe CHF or poorly controlled HTN This evaluation was based on phone / chart review I. Perioperative Cardiac Risk Index Stratification based on 2014 ACC/AHA Guidelines for patients undergoing noncardiac surgery Perioperative risk of a Major Adverse Cardiac Event (MACE) during hospitalization. Add one point (0-6) for each positive RCRI (Revised Cardiac Risk Indicator) 1. Is the Surgical Procedure High-Risk? NO 2. History of Ischemic Heart Disease? YES - h/o PR / CAD / CABG If yes then paste summary of most recent cath / stress tests under Other Additional Findings/Comments section above: 3. History of CHF? no If yes then paste summary of most recent TTE / SANJAY under Other Additional Findings/Comments sectionabove: Murmur? unknown if yes and without recent echocardiogram then may need TTE contact Dr. Dubon or JOCELYNE 4. History of Cerebrovascular Disease? Prior TIA or stroke yes If yes then paste summary of most any relevant neurovascular imaging or carotid duplex results under Other Additional Findings/Comments section above: Carotid bruit? unknown if yes then may need carotid duplex - contact Dr. Dubon or JOCELYNE 5. Insulin-Dependent Diabetes? no Recent Labs Component Name 11/22/23 1036 10/06/21 1600 HGBA1C 6.4* 7.9* EAG 137 180 Insulin pump? no if yes then patient was instructed to continue at 75% basal rate on DOS, AND 1164 placed? no 6. Preoperative Creatinine > 2 mg/dl? no Baseline Cr? 0.72 Total RCRI / MACE score 2 Points >= 6.6% Functional capacity > 4 METS? yes If MACE < 1%, no further testing required. Proceed to surgery. Patient is at low risk of MACE. If MACE > 1% Elevated risk. Need to assess the patient's functional capacity. 4 METs = Can walk up a flight of steps or a hill or walk on level ground at 3 mph If > 4 METs. Proceed to surgery. If < 4 METs or unknown functional capacity then discuss with attending, as further workup may beindicated. II. Consults: NO Copy and paste relevant results Follow up must be written if consult N/A III. CIEDs: Does patient have a CIED (cardiovascular implantable electronic device eg: PM, AICD)? no If yes then copy and paste interrogation report here. Timing of interrogation should be within 1 year for PM and Within 6 months for AICD [place] Information needed (beauty sales consultant, mode, indication for CIED, battery life, magnet function): Call [phone] with all patients with CIEDs: IV. Anticoagulants: Are they receiving antiplatelet/anticoagulant medications (besides ASA)? What is the periop plan? YES - plan is to stop plavix and eliquis on 06/16 Follow up w/ surgical team for restarting V. Previous blood transfusion? no If potential for large EBL: then obtain 1st T&S in PAT clinic (unless previously done and no transfusions since). Order repeat T&S (aka re-type) for DOS :If chart review only and h/o previous transfusions without recent T&S, then need to come in for T&S as above and order retype for DOS Patients with previous transfusions may have developed alloantibodies to donor RBC surface antigens, which may cause hemolytic or delayed hemolytic transfusion reactions upon subsequent exposure to donor PRBCs. . Known CATHERINE or STOP-BANG> 5: yes Snoring, Tired, Observed apnea, high blood Pressure, BMI>35, Age>50, Neck circumference>18 If yes then: update [facility] problem list to include: CATHERINE If patient has already diagnosed CATHERINE and is being admitted then initiate order set: CATHERINE --> Pul Inpatient Sleep Apnea Standing orders (order set 4525) 1. Also click Home CPAP for hospital use if applicable. 2. Select Phase of Care under options tab in upper right corner. 3. Choose post-op and sign (not sign and hold) phase of care and select the scheduled procedure. Remind patient to bring home unit if staying overnight. If pt has STOP-BANG >=5 with undiagnosed CATHERINE and is being admitted then order: IP Consult to Bowling Alley Mechanic (comment regarding consult for undiagnosed CATHERINE) - Follow steps 2 and 3 above If pt has STOP-BANG >=5 with undiagnosed CATHERINE and is outpatient and interested in setting up a sleep study then: - send [facility] message to HASEEB and cc Dr. Dubon Patient was educated about the potential implications of CATHERINE on their perioperative course and recommendations for follow-up care were addressed - including inpatient consult(s) as above? unknown VII. Known or suspected difficult airway no and complete previous airway management section above If yes then: update Epic problem list to include: difficult airway and call Dr. Ling or AIC VIII. Frailty screen: No data recorded X. Suboxone (Buprenorphine / Naloxone) therapy? N/A XI. GLP-1 Agonists No XII. Most recent EKG: EKG needed within 6 months if: (ASA >= 3 OR any RCRI) AND non-low risk procedure XIII. Additional testing needed within 3 months prior to DOS (if possible, else on DOS): - CBC w/o Diff if ASA >= 3 OR expected blood loss >250 OR previously abnormal - BMP is ASA >= 3 OR taking diuretics, K+ supplements, CHRISTINA-I, ARBs OR any RCRI - CMP (instead of BMP) for patient with chronic liver disease or previously abnormal - PT/ PTT/ INR if recent use of anticoagulants OR scheduled for major vascular procedures includingaortic and carotid stents / aneurysm coiling / TIPS Additional testing needed on DOS : - EPOC blood glucose for patients w/ DM - EPOC whole blood K+ for patient with ESRD or poorly controlled K+ Labs ordered today including PAT and surgeon orders: none Labs/tests ordered or in need of review on DOS: PT/INR, PTT, and POC glucose Summary: Rody Zaidi is a 63 year old female presenting for CYSTOSCOPY, BLADDER BIOPSY (Bladder) CYSTOGRAM. They have an ASA score of 3 and a RCRI / MACE score of 2 Points >= 6.6% Follow up results - have ALL the above ordered labs and vital signs been reviewed? YES - results are grossly WNL for this patient They ARE OPTIMIZED - PAT EVALUATION COMPLETE Mervin Jaffe MD 06/19/2024 1:40 PM for this procedure. Vital signs updated in chart? no Preoperative plan was not discussed w/ PAT attending End of PAT Evaluation: ANESTHESIA PLAN ASA Score: 3 NPO Status: No solids since midnight and No liquids within 2 hours Anesthesia Plan: general LMA and MAC Planned Induction: intravenous Planned Postop Destination: PACU Anesthetic plan was discussed with: patient Anesthetic Plan discussion was: Consented The patient's procedural Anesthetic Plan was discussed with the DENTAL LABORATORY ASSISTANT, anesthesiologist blood donor unit assistant, resident and attending. BMI, Height, Weight Tobacco History Estimated body mass index is 31.89 kg/m?? as calculated from the following: Height as of this encounter: 1.6 m (5' 3 ). Weight as of this encounter: 81.6 kg (180 lb). Social History Tobacco Use Smoking Status Every Day Packs/day: 1.00 Years: 40.00 Additional pack years: 0.00 Total pack years: 40.00 Types: Cigarettes Smokeless Tobacco Never Alcohol History Drug History Social History Substance and Sexual Activity Alcohol Use No Social History Substance and Sexual Activity Drug Use Yes Frequency: 1.0 times per week Types: Marijuana Comment: joint Outpatient Medications: Inpatient Medications: Outpatient Medications Marked as Taking for the 06/21/24 encounter (Hospital Encounter) Medication Sig Last Dose albuterol HFA Inhale 2 (two) puffs by mouth every 4 hours as needed 06/15/2024 ascorbic acid Take 1 (one) tablet by mouth once daily 06/15/2024 cetirizine cetirizine 10 mg tablet TAKE 1 TABLET BY MOUTH ONCE DAILY NEEDED 06/14/2024 clopidogrel Take 1 (one) tablet by mouth once daily 06/15/2024 cromolyn Instill 1 drop into both eyes 3 times daily 06/15/2024 dexlansoprazole Take 1 (one) capsule by mouth once daily 06/15/2024 Eliquis Take 1 (one) tablet by mouth every 12 hours 06/15/2024 Repatha SureClick INJECT 1 PEN UNDER THE SKIN EVERY 14 DAYS Past Month ezetimibe Take 1 (one) tablet by mouth once daily 06/14/2024 [DISCONTINUED] FLUoxetine Take 1 (one) capsule by mouth once daily 06/15/2024 fluticasone propionate USE 1 SPRAY(S) IN EACH NOSTRIL ONCE DAILY 06/14/2024 [DISCONTINUED] LORazepam Take 1 (one) tablet by mouth 3 times daily as needed for Anxiety 06/15/2024 losartan Take 1 (one) tablet by mouth once daily 06/15/2024 metFORMIN Take 1 (one) tablet by mouth 2 times daily with morning and evening meal 06/15/2024 metoclopramide Take 1 (one) tablet by mouth every 6 hours as needed 06/15/2024 multivitamin daily Take 1 (one) tablet by mouth daily with food 06/15/2024 ondansetron (disintegrating) Past Week sotalol Take 1.5 (one and one-half) tablets by mouth every 12 hours 06/15/2024 vitamin D (ergocalciferol) Take 1 (one) capsule by mouth every 7 days 06/15/2024 No current facility-administered medications for this encounter. Allergies: Allergies Allergen Reactions Risperidone Other Reported her face getting swollen Statins [Hmg-Coa-R Inhibitors] Other Causes muscle tightness Haloperidol Other unknown Bee Venom Swelling Codeine Itching Triazolam Unknown Relevant Problems Problem List: Patient Active Problem List Diagnosis Date Noted CAD in [place] artery 10/24/2020 Priority: Not Prioritized PAD (peripheral artery disease) ([facility]) Priority: Not Prioritized MDD (recurrent major depressive disorder) in remission ([facility]) 08/05/2018 Priority: Not Prioritized GIOVANNY (generalized anxiety disorder) 06/09/2017 ICD-10 update Obesity 01/09/2017 Nocturia 01/09/2017 Personal history of transient ischemic attack (TIA), and cerebral infarction without residual deficits 01/09/2017 reported Occlusion and stenosis of bilateral carotid arteries 01/09/2017 Chronic pain syndrome 01/09/2017 Type 2 diabetes mellitus with diabetic polyneuropathy ([facility]) 01/09/2017 EMG/NCV [facility] Insomnia due to medical condition 01/09/2017 Gastro-esophageal reflux disease without esophagitis 01/09/2017 Primary osteoarthritis of one knee 01/09/2017 Other asthma ([facility]) 01/09/2017 Sleep related leg cramps 01/09/2017 Other forms of angina pectoris 01/09/2017 Essential (primary) hypertension 01/09/2017 Hypersomnia due to medical condition 01/09/2017 Chronic obstructive pulmonary disease ([facility]) 01/09/2017 Personal history of traumatic brain injury 01/09/2017 Reports brief LOC. Age 17. Restless legs syndrome 01/01/2017 Obstructive sleep apnea 01/01/2017 Cervicalgia 04/28/2015 Other chronic pain 04/28/2015 Medical History: Past Medical History: Diagnosis Date Anxiety Asthma (HCC) Atherosclerosis of coronary artery Bladder cancer (HCC) Cardiac dysrhythmia afib Chest pain pain 10/23 Chronic obstructive pulmonary disease (COPD) (HCC) Depression Essential hypertension GERD (gastroesophageal reflux disease) History of diabetes mellitus Obesity Peripheral vascular disease (HCC) stents in both legs Pure hypercholesterolemia Sleep apnea does not use CPAP Snoring TIA (transient ischemic attack) Surgical History: Past Surgical History: Procedure Laterality Date Cholecystectomy 2006 CYSTOSCOPY Left 12/07/2023 Left; LEFT RETROGRADE PYELOGRAM CYSTOSCOPY Left 01/17/2024 Left; Cystoscopy, left retrograde pyelogram, bladder biopsy HX C SECTION CLASSIC 1989 HX CAROTID ENDARDECTOMY 2014 HX TUBAL LIGATION 1989 OTHER SURGERY excision of anal warts NC FOOT/TOES SURGERY PROC UNLISTED TRANS URETHRAL RESECT BLADDER TUMOR 03/23/2022 TRANSURETHRAL RESECTION BLADDER TUMOR (TURBT) TRANS URETHRAL RESECT BLADDER TUMOR N/A 01/18/2023 N/A; Blue light cystoscopy and transurethral resection of bladder tumor TRANS URETHRAL RESECT BLADDER TUMOR N/A 12/07/2023 N/A; TRANSURETHRAL RESECTION BLADDER TUMOR (TURBT) Tympanostomy 2013 URETEROSCOPY Left 03/23/2022 Left; URETEROSCOPY URETEROSCOPY Left 12/07/2023 Left; LEFT URETEROSCOPY, LEFT URETERAL BIOPSY ANESTHESIA ASSISTANT Status: No LMP recorded. Patient is postmenopausal. Postmenopausal OB History No obstetric history on file. Covid Vaccine: Lab Results: Recent Labs Component Name 05/05/24 1140 NITRITE neg PROTEINUA +- No results found for requested labs within last 120 days. No results found for requested labs within last 120 days. documented in this encounter Miscellaneous Notes * Anesthesia Transfer of Care - Tita Catalan APRN-DENTAL LABORATORY ASSISTANT - 06/21/2024 10:33 AM CDT ANESTHESIA TRANSFER OF CARE NOTE Today's Date: 06/21/2024 Date of : 1960 Patient: Rody Zaidi Procedure(s): CYSTOSCOPY, BLADDER BIOPSY CYSTOGRAM Surgeon(s): Primary: Jose Oliver MD Preop Diagnosis: Pre-op Diagnois: * Malignant neoplasm of urinary bladder, unspecified site (HCC) [C67.9] Pre-op Meds (From admission, onward) Start Stop Status Route Frequency Ordered 06/21/24 0750 0.9% NaCl injection 1-10 mL See Hyperspace for full Linked Orders Report. -- Dispensed IK PRN 06/21/24 0750 06/21/24 0800 0.9% NaCl injection 3 mL See Hyperspace for full Linked Orders Report. -- Dispensed IK EVERY 8 HOURS 06/21/24 0750 06/21/24 0800 acetaminophen (Tylenol) tablet 1,000 mg 06/21/24 0828 Completed PO PRE-OP ONCE 06/21/24 0750 06/21/24 0815 albuterol-ipratropium (Duo-Neb) nebulizer solution 3 mL 06/21/24 0820 Completed IN ONCE 06/21/24 0745 06/21/24 0800 ceFAZolin (Ancef) 2 g in 0.9% NaCl IV 50 mL IVPB 06/21/24 0942 Completed IV PRE-OP ONCE 06/21/24 0750 06/21/24 0945 diphenhydrAMINE (Benadryl) injection -- Sent IV PRN 06/21/24 0952 06/21/24 0945 famotidine (Pepcid) injection -- Sent IV PRN 06/21/24 0951 06/21/24 0940 fentaNYL (PF) (Sublimaze) injection -- Sent IV PRN 06/21/24 0944 06/21/24 0750 insulin regular human 1 unit/mL injection -- Verified IV PRN 06/21/24 0750 06/21/24 1010 iohexol (Omnipaque 300) contrast -- Sent PRN 06/21/24 1020 06/21/24 0800 lactated ringers infusion -- Dispensed IV CONTINUOUS 06/21/24 0750 06/21/24 0940 lidocaine HCl (PF) (Xylocaine MPF) 2 % injection -- Sent IV PRN 06/21/24 0943 06/21/24 0932 midazolam (Versed) injection -- Sent IV PRN 06/21/24 0943 06/21/24 0940 propofol (Diprivan) infusion -- Sent IV CONTINUOUS PRN 06/21/24 0944 06/21/24 0940 propofol (Diprivan) injection -- Sent IV PRN 06/21/24 0944 Post-op Diagnosis: * Malignant neoplasm of urinary bladder, unspecified site (HCC) [C67.9] . Allergies Allergen Reactions Risperidone Other Reported her face getting swollen Statins [Hmg-Coa-R Inhibitors] Other Causes muscle tightness Haloperidol Other unknown Bee Venom Swelling Codeine Itching Triazolam Unknown Vitals: Patient Vitals for the past 3 hrs: BP Temp Pulse Resp SpO2 Pain Rating Score #1 06/21/24 1030 122/85 97.9 ??F (36.6 ??C) 61 12 97 % 9 06/21/24 0900 123/92 -- 88 14 95 % -- 06/21/24 0845 113/94 -- 90 19 95 % -- 06/21/24 0830 (!) 132/108 -- 98 18 97 % -- 06/21/24 0820 -- -- 98 16 95 % -- 06/21/24 0815 (!) 126/103 -- 97 18 96 % -- 06/21/24 0810 124/93 -- -- 16 98 % -- 06/21/24 0809 -- 98.5 ??F (36.9 ??C) -- -- -- 8 Lines, Drains, and Airways Type Details Placement Removal Peripheral IV Date: 06/21/24; Time: 805; Orientation: Left, Posterior; Location: Forearm; Gauge: 20 G 06/21/24 08 by Lita Cotton RN Intraprocedure I/O Totals Intake lactated ringers infusion 800.00 mL Total Intake 800 mL Patient Transfer Location: Other - please comment (Phase 3) Transport Airway: spontaneous respirations Transport Monitoring: continuous pulse oximetry and heart rate Complications: None Handoff Given? Yes Checklist or Protocol - The serrano handoff elements that must be included in the transfer of care checklist include: 1. Identification of patient. 2. Identification of responsible practitioner (PACU nurse or advanced practitioner). 3. Discussion of pertinent medical history. 4. Discussion of the surgical/procedure course (procedure, reason for surgery, procedure performed). 5. Intraoperative anesthetic management and issue/concerns. 6. Expectations/Plans for the early post-procedure period. 7. Opportunity for questions and acknowledgement of understanding of report from the receiving PACUteam. Tita Catalan APRN-DENTAL LABORATORY ASSISTANT documented in this encounter Plan of Treatment Upcoming Encounters Date Type Department Care Team (Late st Contact Info) Description 01/19/2025 11:30 AM FURNACE CLERK Procedure visit [facility] - Urology [address] [place] [id number] Jose Oliver MD [address] [place] [id number] documented as of this encounter Goals Goal [...] Diagnoses Not on filedocumented in this encounter Administered Medications Inactive Administered Medications - up to 3 most recent administrations Medication Order MAR Action Action Date Dose Rate Site ceFAZolin (Ancef) 2 g in 0.9% NaCl IV 50 mL IVPB 2 g, at 100 mL/hr, Intravenous, PRE-OP ONCE, 1 dose, On Wed06/21/24 at 0800, Administer 30 minutes prior to surgical incision., Indication for anti-infective therapy: Surgical prophylaxis, Pre-op $ New Bag/Syringe 06/21/2024 9:42 AM CDT 2 g diphenhydrAMINE (Benadryl) injection Intravenous, PRN, Starting on Wed06/21/24 at 0945, Until Wed06/21/24 at 1037, Anesthesia Intra-op $ Given 06/21/2024 9:45 AM CDT 25 mg famotidine (Pepcid) injection Intravenous, PRN, Starting on Wed06/21/24 at 0945, Until Wed06/21/24 at 1037, Anesthesia Intra-op $ Given 06/21/2024 9:45 AM CDT 20 mg fentaNYL (PF) (Sublimaze) injection Intravenous, PRN, Starting on Wed06/21/24 at 0940, Until Wed06/21/24 at 1037, Anesthesia Intra-op $ Given 06/21/2024 10:06 AM CDT 25 mcg $ Given 06/21/2024 9:58 AM CDT 25 mcg $ Given 06/21/2024 9:50 AM CDT 25 mcg lactated ringers infusion at 75 mL/hr, Intravenous, CONTINUOUS, Starting on Wed06/21/24 at 0800, Until Wed06/28/24 at 1413, Pre-op Restarted 06/21/2024 9:32 AM CDT $ New Bag/Syringe 06/21/2024 8:28 AM CDT 75 mL/ hr lidocaine HCl (PF) (Xylocaine MPF) 2 % injection Intravenous, PRN, Starting on Wed06/21/24 at 0940, Until Wed06/21/24 at 1037, Anesthesia Intra-op $ Given 06/21/2024 9:40 AM CDT 100 mg midazolam (Versed) injection Intravenous, PRN, Starting on Wed06/21/24 at 0932, Until Wed06/21/24 at 1037, Anesthesia Intra-op $ Given 06/21/2024 9:32 AM CDT 2 mg propofol (Diprivan) infusion Intravenous, CONTINUOUS PRN, Starting on Wed06/21/24 at 0940, Until Wed06/21/24 at 1037, Anesthesia Intra-op $ New Bag/Syringe 06/21/2024 9:40 AM CDT 75 mcg/kg/min 36.54 mL/hr propofol (Diprivan) injection Intravenous, PRN, Starting on Wed06/21/24 at 0940, Until Wed06/21/24 at 1037, Anesthesia Intra-op $ Given 06/21/2024 10:06 AM CDT 30 mg $ Given 06/21/2024 9:40 AM CDT 50 mg documented in this encounter Care Teams Financial Representative Relationship Specialty Start Date End Date Deisi Andrews MD [address] [place] [address] [place] [address] PCP - General Family Medicine 05/26/23 10/26/24 documented as of this encounter
--- OUTSIDE RECORDS SUMMARY | 2024-11-12 04:42 | XMS_ITS | Encounter Summary ---
Author Organization [facility] Address [address] [place] [address] Care Team Providers Care Research Neuropsychologist Name Role Phone Deisi Andrews MD Primary Care Provider [phone] Encounter Details Date Type Department Care Team (Latest Contact Info) Description 05/05/2024 Travel Social History Tobacco Use Types Packs/Day [...] No 01/17/2024 documented as of this encounter Plan of Treatment Upcoming Encounters Date Type Department Care Team (Late st Contact Info) Description 01/19/2025 11:30 AM BARREL INSPECTOR TIGHT Procedure visit [facility]rology [address] [facility] [address] [place] [address] Jose Oliver MD [address] [facility] [address] [facility] [place] [address] documented as of this encounter Goals Goal [...] on filedocumented in this encounter Care Teams Research Neuropsychologist Relationship Specialty Start Date End Date Deisi Andrews MD [address] [place] [address] [place] [address] PCP - General Family Medicine 05/26/23 10/26/24 documented as of this encounter
--- OUTSIDE RECORDS SUMMARY | 2024-11-12 04:42 | XMS_ITS | Encounter Summary ---
Author Organization [facility] Health Address [address] [place] [address] Care Team Providers Care Aeronautical Test Engineer Name Role Phone Deisi Andrews MD Primary Care Provider [phone] Encounter Details Date Type Department Care Team (Latest Contact Info) Description 11/22/2023 Travel Social History Tobacco Use Types Packs/Day Years Used Date Smoking Tobacco: Every Day Cigarettes 0.3 40 Smokeless Tobacco: Never Comments:pt said she will qu it in 09/2021 Alcohol Use Standard Drinks/Week Comments No 0 (1 standard drink = 0.6 oz pur e alcohol) AUDIT-C Answer Date Recorded Q1: How often do you have a drink containing alcohol? Never 01/18/2023 Q2: How many drinks containi ng alcohol do you have on a typical day when you are drinking? Patient does not drink Q3: How often do you have si x or more drinks on one occasion? Never 01/18/2023 PHQ-2 Answer Date Recorded Patient Health Questionnaire-2 Score 2 08/17/2023 Sex and Gender Information Value Date Recorded Sex Assigned at Not on file Gender Identity Not on file Sexual Orientation Not on file documented as of this encounter Functional Status Functional Status Response Date of Assess ment Is person deaf or have serious hearing difficult y? No 01/18/2023 Is person blind or have serious difficulty seein g? No 01/18/2023 Does person have serious dif ficulty walking/climbing stairs? No 01/18/2023 Does person have difficulty dressing/bathing? No 01/18/2023 Does person have difficulty doing errands alone? No 01/18/2023 Cognitive Status Response Date of Assessm ent Does person have difficulty concentrating/remembering/making decisions? No 01/18/2023 documented as of this encounter Plan of Treatment Upcoming Encounters Date Type Department Care Team (Late st Contact Info) Description 01/19/2025 11:30 AM CLIENT LIAISON Procedure visit [facility] - Urology [address] [facility] [address] [place] [address] Jose Oliver MD [address] [place] [address] documented as of this encounter Goals Goal [...] on filedocumented in this encounter Care Teams Aeronautical Test Engineer Relationship Specialty Start Date End Date Deisi Andrews MD [address] [place] [address] PCP - General Family Medicine 05/26/23 10/26/24 documented as of this encounter
--- OUTSIDE RECORDS SUMMARY | 2024-11-12 04:42 | XMS_ITS | Encounter Summary ---
Author Organization [facility] Address [address] [place] [address] Care Team Providers Care Data Coordinator Name Role Phone Deisi Andrews MD Primary Care Provider [phone] Reason for Visit * Reason Onset Date Comments Results 01/24/2024 Encounter Details Date Type Department Care Team (Late st Contact Info) Description 01/24/2024 Telephone [facility] [address] [place] [address] Jose Oliver MD [address] [place] [address] Results Social History Tobacco Use [...] No 01/17/2024 documented as of this encounter Miscellaneous Notes * Telephone Encounter - Jose Oliver MD - 01/24/2024 1:15 PM CDT Informed of negative biopsy. Follow up with cystoscopy and NM Renal in 04/2024 as scheduled. documented in this encounter Plan of Treatment Upcoming Encounters Date Type Department Care Team (Late st Contact Info) Description 01/19/2025 11:30 AM BILLET HEATER Procedure visit [facility] - Urology [address] [place] [address] [address] [place] [address] Jose Oliver MD [facility] [place] [address] documented as of this encounter Goals Goal [...] on filedocumented in this encounter Care Teams Data Coordinator Relationship Specialty Start Date End Date Deisi Andrews MD [address] [place] [address] [place] [address] PCP - General Family Medicine 05/26/23 10/26/24 documented as of this encounter
--- OUTSIDE RECORDS SUMMARY | 2024-11-12 04:42 | XMS_ITS | Encounter Summary ---
Author Organization [facility] Health Address [address] [facility] [place] [address] Care Team Providers Care Mica Miner Name Role Phone Deisi Andrews MD Primary Care Provider [phone] Reason for Visit * Reason Onset Date Comments Reschedule Appointment 07/28/2024 Encounter Details Date Type Department Care Team (Late st Contact Info) Description 07/28/2024 Telephone [facility] Scheduling [address] [place] [phone] Jose Oliver MD [address] [place] [address] Reschedule Appointment Social History Tobacco Use Types Packs/Day [...] encounter Miscellaneous Notes * Telephone Encounter - Roxie Jones - 07/28/2024 9:52 AM CDT Rody has a CLINIC SAP PROJECT MANAGER VISIT on 09/08/[address] Oliver that needs to be rescheduleddue to his clinic closure that day. Please call Rody to reschedule this appointment if necessary. documented in this encounter Plan of Treatment Upcoming Encounters Date Type Department Care Team (Late st Contact Info) Description 01/19/2025 11:30 AM RESIDENTIAL ROOFER Procedure visit [facility] Urology [address] [place] [address] [address] [place] [address] Jose Oliver MD [address] [place] [address] documented as of this encounter Goals Goal [...] on filedocumented in this encounter Care Teams Mica Miner Relationship Specialty Start Date End Date Deisi Andrews MD [address] [place], [place] [phone] PCP - General Family Medicine 05/26/23 10/26/24 documented as of this encounter
--- OUTSIDE RECORDS SUMMARY | 2024-11-12 04:42 | XMS_ITS | Encounter Summary ---
Author Organization [facility] Address [address] [facility] [place] [address] Care Team Providers Care Drug And Alcohol Counselor Name Role Phone Deisi Andrews MD Primary Care Provider [phone] Reason for Visit * Auth/Cert (Routine) Specialty Diagnoses / Procedures Referred By Nacho brooks Referred To Contact Diagnoses Malignant neoplasm of urinary bladder, unspecified site (HCC) Malignant neoplasm of urinary bladder, unspecified site Procedures ND CYSTOURETHROSCOPY,FULGUR 2-5CM LESN ND CYSTOURETHROSCOPY,URETER CATHETER ND CYSTOSCOPY,INSERT URETERAL STENT TRANSURETHRAL RESECTION BLADDER TUMOR (TURBT) CYSTOSCOPY WITH RETROGRADE PYELOGRAM CYSTOSCOPY WITH INSERTION URETERAL STENT Referral ID Status Reason Start Date Expiration Date Visits Re quested Visits Authorized [id number] 1 1 Encounter Details Date Type Department Care Team (Latest Contact Info) Description 12/07/2023 7:38 PM TRUCK TRAILER MECHANIC - 12/07/2023 11:59 PM [facility] Hospital Encounter [facility] [address] [place] [address] Jose Oliver MD [address] [facility] [address] [facility] [place] [address] Discharge Disposition: Home or Self Care Social History Tobacco Use Types Packs/Day Years Used Date Smoking Tobacco: Every Day Cigarettes 1 40 Smokeless Tobacco: Never Comments:pt said she [...] No 12/07/2023 documented as of this encounter Medications at Time of Discharge Medication Sig Dispensed Refills Start Date End Date albuterol (PROVENTIL;VENTOLIN) (2.5 MG/3ML) 0.083% nebulizer solution Inhale 2.5 (two and one-half) mg by mouth every 4 hours as needed for Shortness of Breath 75 mL 11/03/2021 albuterol HFA (PROAIR HFA) 108 (90 Base) MCG/ACT inhalerIndications:Sta ge 2 moderate COPD by GOLD classification ([facility]) Inhale 2 (two) puffs by mouth every [...] 12 hours 10/28/2023 vitamin D, ergocalciferol, (DRISDOL) 08631 UNITS capsule Take 1 (one) capsule by [...] CR 24hr (Ditropan XL) 15 MG tabletIndications:Anastasiya gnsaima neoplasm of urinary bladder, unspecified site ([facility]),Bladder spasms,Urinary frequency Take 1 (one) tablet by mouth once daily 90 tablet 4 11/01/2023 09/01/2024 oxyCODONE, immediate release, (Roxicodone) 5 MG tabletIndications:Anastasiya gnsaima neoplasm of urinary bladder, unspecified site ([facility]) Take 1 (one) tablet by mouth every 6 hours as needed for Pain 6 tablet 12/07/2023 01/06/2024 pantoprazole EC (PROTONIX) 40 MG tabletIndications:need follow up visit for further [phone] option 1 Take 1 (one) tablet by mouth once daily Reasons: need follow up visit for further [phone] option 1 90 tablet 3 01/23/2022 06/15/2024 Symbicort 160-4.5 MCG/ACT inhalerIndications:Sta ge 2 moderate COPD by GOLD classification ([facility]) INHALE 2 PUFFS BY MOUTH TWICE DAILY 10.2 g 07/07/2023 06/15/2024 traZODone (Desyrel) 50 MG tablet Take 1 (one) tablet by mouth nightly as needed For insomnia. 30 tablet 1 11/19/2023 01/06/2024 documented as of this encounter Plan of Treatment Upcoming Encounters Date Type Department Care Team (Late st Contact Info) Description 01/19/2025 11:30 AM TRUCK TRAILER MECHANIC Procedure visit [facility] [address] [place] [address] [address] [place] [address] Jose Oliver MD [address] [address] documented as of this encounter Goals Goal [...] [place] CYSTO SURGERY Routine 12/07/2023 8:10 PM TRUCK TRAILER MECHANIC Malignant neoplasm of urinary bladder, unspecified site (HCC) documented in this encounter Results * [place] CYSTO SURGERY (12/07/2023 8:10 PM TRUCK TRAILER MECHANIC) Narrative [facility] - 12/07/2023 8:10 PM TRUCK TRAILER MECHANIC Fluoroscopy was used for this exam in the OR. Please see the Operative report. Jose Oliver MD FLUOROSCOPY KALIN BARBER [facility] documented in this encounter Visit Diagnoses Not on filedocumented in this encounter Care Teams Drug And Alcohol Counselor Relationship Specialty Start Date End Date Deisi Andrews MD [address] [place] [address] PCP - General Family Medicine 05/26/23 10/26/24 documented as of this encounter
--- OUTSIDE RECORDS SUMMARY | 2024-11-12 04:42 | XMS_ITS | Encounter Summary ---
Author Organization [facility] Health Address [address] [facility] [place] [address] Care Team Providers Care Wash Plant Operator Name Role Phone Deisi Andrews MD Primary Care Provider [phone] Encounter Details Date Type Department Care Team (Late st Contact Info) Description 08/11/2024 11:00 AM CDT Clinical Support [facility] [address] [place] [address] [address] [place] [address] Jose Oliver MD [address] OF [place]OLOGIC [place] [address] Malignant neoplasm of urinary bladder, unspecified site [...] Sign Reading Time Taken Comments Blood Pressure 99/69 08/11/2024 11:17 AM CDT Pulse 82 08/11/2024 11:17 AM CDT Temperature 35 ??C (95 ??F) 08/11/2024 11:17 AM CDT Respiratory Rate 17 08/11/2024 11:17 AM CDT Oxygen Saturation 95% 08/11/2024 11:17 AM CDT Inhaled Oxygen Concentration - - Weight 82.6 kg (182 lb) 08/11/2024 11:17 AM CDT Height 160 cm (5' 3 ) 08/11/2024 11:17 AM CDT Body Mass Index 32.24 08/11/2024 11:17 AM CDT documented in this [...] Progress Notes * Katelynn Hassan LPN - 08/11/2024 12:08 PM CDT Patient in for BCG instillation, pt tolerated procedure well, no s/s of distress observed. Patient will return in a week for third treatment. Associated attestation - Jose Oliver MD - 08/11/2024 3:45 PM CDT I was present in office for BCG administration #2 of 6 documented in this encounter Plan of Treatment Upcoming Encounters Date Type Department Care Team (Late st Contact Info) Description 01/19/2025 11:30 AM TERMINAL BLOCK ASSEMBLER Procedure visit [facility] - Urology [address] [place] [address] [address] [place] [address] Jose Oliver MD [address] [place] [address] documented as of this encounter Goals Goal [...] - POINT OF CARE (AMB) [facility] Routine 08/11/2024 11:51 AM CDT Malignant neoplasm of urinary bladder, unspecified site (HCC) documented in this encounter Results * URINALYSIS AUTO - POINT OF CARE (AMB) [facility] (08/11/2024 11:51 AM CDT) Glucose UA neg [facility] [address] Bilirubin UA POCT neg [facility] [address] Ketones UA POCT neg [facility] [address] Specific [place] UA 1.[address] [facility] [address] Blood Urine POCT 3+ [address] [facility] [address] pH UA 6.0 [facility] [address] Protein UA 1+ 0.3 [facility] [address] Urobilinogen UA + 3.5 [facility] [address] Nitrite UA neg [facility] [address] WBC UA 1+ [address] [facility] [address] Urine URINE / Unknown 08/11/2024 1 1:51 AM CDT Jose Oliver MD LAB - POINT OF CAR E ORDERABLES [facility] [address] [place] [address], [facility] [phone] documented in this encounter Visit Diagnoses Diagnosis Malignant neoplasm of urinary bladder, unspecified site (HCC)- Primary documented in this encounter Administered Medications Inactive Administered Medications - up to 3 most recent administrations Medication Order MAR Action Action Date Dose Rate Site bcg live (Marina Bcg) injection 25 mg 25 mg, Bladder Instillation, ONCE, 1 dose, On Wed08/11/24 at 1230, For bladder irrigation, dose should be retained for 2 hours (patient should reposition every 15 mintues), then voided, during the first 24 hours after instillation, patient should sit while voiding $ Given 08/11/2024 1:01 PM CDT 25 mg documented in this encounter Care Teams Wash Plant Operator Relationship Specialty Start Date End Date Deisi Andrews MD [address] [place] [address] [place] [address] PCP - General Family Medicine 05/26/23 10/26/24 documented as of this encounter
--- OUTSIDE RECORDS SUMMARY | 2024-11-12 04:42 | XMS_ITS | Encounter Summary ---
Author Organization [facility] Address [address] [facility] [place] [address] Care Team Providers Care Medical Office Supervisor Name Role Phone Deisi Andrews MD Primary Care Provider [phone] Reason for Visit * Reason Onset Date Comments Surgery Scheduling 12/23/2023 Called and go t patient scheduled for surgery per Dr oliver's orders . Surgery will be scheduled for 01/17/2024. Letter mailed/emailed/MyChart/verbal confirmation Raegan Armas 12/23/2023 9:20 AM Encounter Details Date Type Department Care Team (Late st Contact Info) Description 12/23/2023 Telephone [facility]rology [address] [place] [address], [facility] [place] [address] Jose Oliver MD [address] [place] [address] [place] [phone] Surgery Scheduling (Called and got patient scheduled for surgery per Dr oliver's orders . Surgery will be scheduled for 01/17/2024. Letter mailed/emailed/MyChart/ verbal confirmation Raegan Armas 12/23/2023 9:20 AM) Social History Tobacco Use Types Packs/Day Years [...] No 12/07/2023 documented as of this encounter Miscellaneous Notes * Telephone Encounter - Raegan Armas - 12/23/2023 9:09 AM CST Called and got patient scheduled for surgery per Dr oliver's orders . Surgery will be scheduled for 01/17/2024. Letter mailed/emailed/MyChart/verbal confirmation Raegan Armas 12/23/2023 9:20 AM IST AGENT documented in this encounter Plan of Treatment Upcoming Encounters Date Type Department Care Team (Late st Contact Info) Description 01/19/2025 11:30 AM TOURIST AGENT Procedure visit [facility] Urology [address] [place] [address] [address] [place] [address] Jose Oliver MD [address] [place] [address] documented as of this encounter Goals Goal [...] filedocumented in this encounter Care Teams Medical Office Supervisor Relationship Specialty Start Date End Date Deisi Andrews MD [address] [place] [address] [place] [address] PCP - General Family Medicine 05/26/23 10/26/24 documented as of this encounter
--- OUTSIDE RECORDS SUMMARY | 2024-11-12 04:42 | XMS_ITS | Encounter Summary ---
Author Organization [facility] Address [address] [facility] [place] [address] Care Team Providers Care Director Employment Name Role Phone Deisi Andrews MD Primary Care Provider [phone] Encounter Details Date Type Department Care Team (Latest Contact Info) Description 12/06/2023 Travel Social History Tobacco Use Types Packs/Day [...] st Contact Info) Description 01/19/2025 11:30 AM LAUNDRETTE OWNER Procedure visit [facility] - Urology [address] [facility] [address] [place] [address] Jose Oliver MD [address] [place] [address] documented as of this encounter Goals Goal [...] on filedocumented in this encounter Care Teams Director Employment Relationship Specialty Start Date End Date Deisi Andrews MD [address] [place] [address] PCP - General Family Medicine 05/26/23 10/26/24 documented as of this encounter
--- OUTSIDE RECORDS SUMMARY | 2024-11-12 04:42 | XMS_ITS | Encounter Summary ---
Author Organization [facility] Health Address [address] [place] [address] Care Team Providers Care Supply Room Clerk Name Role Phone Deisi Andrews MD Primary Care Provider Encounter Details Date Type Department Care Team (Latest Contact Info) Description 12/07/2023 Travel Social History Tobacco Use Types Packs/Day [...] No 12/07/2023 documented as of this encounter Plan of Treatment Upcoming Encounters Date Type Department Care Team (Late st Contact Info) Description 01/19/2025 11:30 AM WORK DISTRIBUTOR Procedure visit [facility] - Urology [address] [place] [address] [address] [place] [address] Jose Oliver MD [address] [place] [address] documented as of this encounter Goals Goal [...] on filedocumented in this encounter Care Teams Supply Room Clerk Relationship Specialty Start Date End Date Deisi Andrews MD [address] [place] [address] PCP - General Family Medicine 05/26/23 10/26/24 documented as of this encounter
--- OUTSIDE RECORDS SUMMARY | 2024-11-12 04:42 | XMS_ITS | Encounter Summary ---
Author Organization [facility] Address [address] [facility] [place] [address] Care Team Providers Care Solderer Assembler Name Role Phone Deisi Andrews MD Primary Care Provider [phone] Encounter Details Date Type Department Care Team (Late st Contact Info) Description 12/23/2023 Orders Only [facility] [address] [facility] [place] [phone] Monica Magallon LPN Other hydronephrosis ; Pre-op testing; Malignant neoplasm of urinary bladder, unspecified site [...] No 12/07/2023 documented as of this encounter Progress Notes * Monica Magallon LPN - 12/23/2023 10:05 AM CST Called patient regarding urine culture with instructions to obtain prior to surgery. LM ICAL THERAPY AIDES TEACHER documented in this encounter Plan of Treatment Upcoming Encounters Date Type Department Care Team (Late st Contact Info) Description 01/19/2025 11:30 AM PHYSICAL THERAPY AIDES TEACHER Procedure visit [facility] - Urology [address] [place] [address] [address] [place] [address] Jose Oliver MD [facility] [place] [address] documented as of this encounter Goals Goal [...] as of this encounter Visit Diagnoses Diagnosis Other hydronephrosis- Primary Pre-op testing Preoperative examination, unspecified Malignant neoplasm of urinary bladder, unspecified site (HCC) documented in this encounter Care Teams Solderer Assembler Relationship Specialty Start Date End Date Deisi Andrews MD [address] [place] [address] [place] [address] PCP - General Family Medicine 05/26/23 10/26/24 documented as of this encounter
--- OUTSIDE RECORDS SUMMARY | 2024-11-12 04:42 | XMS_ITS | Encounter Summary ---
Author Organization [facility] Health Address [address] [facility] [place] [address] Care Team Providers Care Spray Stainer Name Role Phone Deisi Andrews MD Primary Care Provider Encounter Details Date Type Department Care Team (Late st Contact Info) Description 11/24/2023 Orders Only [facility] - Urology [address] [place] [address] [address] [place] [phone] Jose Oliver MD [address] [place] [address] Social History Tobacco Use Types Packs/Day Years [...] st Contact Info) Description 01/19/2025 11:30 AM SEAT BUILDER Procedure visit [facility] - Urology [address] [place] [address] [address] [place] [address] Jose Oliver MD [address] [place] [phone] documented as of this encounter Goals Goal [...] Priority Date/Time Associated Diagnosis Comments CULTURE URINE 11/24/2023 1:43 PM SEAT BUILDER documented in this encounter Results * CULTURE URINE (11/24/2023 1:43 PM SEAT BUILDER) Culture QUEST Comment: ??CULTURE, URINE, ROUTINE ?Micro Number: ?[id number] ??Test Status: ? Final ??Specimen Source: ?? Urine, clean catch ??Specimen Quality: ??Adequate ??Result: ?Mixed genital unruly isolated. These superficial ? bacteria are not indicative of a urinary tract ? infection. No further organism identification is ? warranted on this specimen. If clinically ? indicated, recollect clean-catch, mid-stream ? urine and transfer immediately to Urine Culture ? Transport Tube. REPORT COMMENT: FASTING:NO Test Performed at: [facility] [employer] ??[id number] GISELE JUSTICE MD 11/24/2023 1:43 PM SEAT BUILDER 11/24/2023 1:44 PM SEAT BUILDER Jose Oliver MD LAB - MICROBIOLOGY ORDERABLES Performing Organization Address City/State/[facility] Co de Phone Number [employer] [address] [place] [address] documented in this encounter Visit Diagnoses Not on filedocumented in this encounter Care Teams Spray Stainer Relationship Specialty Start Date End Date Deisi Andrews MD [address] [place] [address] DANNIE Rodríguez [phone] PCP - General Family Medicine 05/26/23 10/26/24 documented as of this encounter
--- OUTSIDE RECORDS SUMMARY | 2024-11-12 04:42 | XMS_ITS | Encounter Summary ---
Author Organization [facility] Address [address] [facility] [place] [address] Care Team Providers Care Private Detective Name Role Phone Deisi Andrews MD Primary Care Provider [phone] Reason for Visit * Auth/Cert (Routine) Specialty Diagnoses / Procedures Referred By Nacho brooks Referred To Contact Diagnoses Malignant neoplasm of urinary bladder, unspecified site (HCC) Malignant neoplasm of urinary bladder, unspecified site Procedures NV CYSTOURETHROSCOPY,FULGUR 2-5CM LESN NV CYSTOURETHROSCOPY,URETER CATHETER NV CYSTOSCOPY,INSERT URETERAL STENT TRANSURETHRAL RESECTION BLADDER TUMOR (TURBT) CYSTOSCOPY WITH RETROGRADE PYELOGRAM CYSTOSCOPY WITH INSERTION URETERAL STENT Referral ID Status Reason Start Date Expiration Date Visits Re quested Visits Authorized [id number] 1 1 Encounter Details Date Type Department Care Team (Latest Contact Info) Description 12/07/2023 5:51 AM ASSISTANT BRANCH OPERATIONS MANAGER - 12/07/2023 11:19 AM [facility] Hospital Encounter [facility] [address] [place] [phone] Jose Oliver MD [address] [facility] [address] [place] [phone] Surgery General Discharge Disposition: Home or Self Care Social [...] Sign Reading Time Taken Comments Blood Pressure 147/71 12/07/2023 11:00 AM ASSISTANT BRANCH OPERATIONS MANAGER Pulse 67 12/07/2023 11:00 AM ASSISTANT BRANCH OPERATIONS MANAGER Temperature 36.6 ??C (97.9 ??F) 12/07/2023 10:[address] Respiratory Rate 22 12/07/2023 11:00 AM ASSISTANT BRANCH OPERATIONS MANAGER Oxygen Saturation 94% 12/07/2023 11:00 AM ASSISTANT BRANCH OPERATIONS MANAGER Inhaled Oxygen Concentration - - Weight 83 kg (183 lb) 12/07/2023 6:23 AM ASSISTANT BRANCH OPERATIONS MANAGER Height 160 cm (5' 3 ) 12/07/2023 6:23 AM ASSISTANT BRANCH OPERATIONS MANAGER Body Mass Index 32.42 12/07/2023 6:23 AM ASSISTANT BRANCH OPERATIONS MANAGER documented in this encounter Functional Status Functional [...] Kenan Argueta MD - 12/07/2023 8:50 AM ASSISTANT BRANCH OPERATIONS MANAGER Images from the original note were not included. [facility] Urology You had a procedure called [...] to cancel orreschedule the appointment please call [phone]. The [facility] is located at [address] [place] [address], [address], [place] [address]. The phone number to clinic is [phone] if you need to cancel or re-schedule. Please arrive 15 minutes early. The [facility] is located at the [facility] level 2. The phone number is [phone]. The address is [address] [place] [address]. Please arrive 15 minutes early to your appointment. Post Operative Pain Control: - You can take Tylenol (acetaminophen) and Motrin (Ibuprofen) in alternating fashion every 4-6 hours, especially in the first 24-48 hours after surgery, then as needed thereafter. - You may also be prescribed narcotic pain medication such as Oxycodone, Cochran, or Tramadol. This should be taken as needed for severe pain only. Do not drink alcohol, drive, or operate heavy machinery while taking this type of medication. If the narcotic is Cochran, please understand that Cochran has Tyelonol in it. If you are [...] surgery or the recovery process, please contact [facility] Urology [phone] (Option #1: scheduling, Option #2 Nurse line, Option #3 surgery scheudler, Option#4 administration) on weekdays during regular business hours. If you have an urgent or emergent question on a weekend or after regular business hours, please contact [facility] at [phone] and ask for the provider precision dancer for Urology. In addition, please contact us [...] to the touch, or non-clear, foul-smelling drainage) STANT BRANCH OPERATIONS MANAGER documented in this encounter Medications at Time [...] 12 hours 10/28/2023 vitamin D, ergocalciferol, (DRISDOL) 60190 UNITS capsule Take 1 (one) capsule by [...] gnant neoplasm of urinary bladder, unspecified site ([facility]),Bladder spasms,Urinary frequency Take 1 (one) tablet by mouth once daily 90 tablet 4 11/01/2023 09/01/2024 oxyCODONE, immediate release, (Roxicodone) 5 MG tabletIndications:Anastasiya gnant neoplasm of urinary bladder, unspecified site ([facility]) Take 1 (one) tablet by mouth every 6 hours as needed for Pain 6 tablet 12/07/2023 01/06/2024 pantoprazole EC (PROTONIX) 40 MG tabletIndications:need follow up visit for further [phone] option 1 Take 1 (one) tablet by mouth once daily Reasons: need follow up visit for further [phone] option 1 90 tablet 3 01/23/2022 06/15/2024 Symbicort 160-4.5 MCG/ACT inhalerIndications:Sta ge 2 moderate COPD by GOLD classification ([facility]) INHALE 2 PUFFS BY MOUTH TWICE DAILY 10.2 g 07/07/2023 06/15/2024 traZODone (Desyrel) 50 MG tablet Take 1 (one) tablet by mouth nightly as needed For insomnia. 30 tablet 1 11/19/2023 01/06/2024 documented as of this encounter H&P Notes * Belkys Taylor APRN-UNARMED SECURITY GUARD - 12/07/2023 6:22 AM CST [facility] [place] [facility] Division of Urologic Surgery Pre-Operative H&P Today's [...] Surgical History: Procedure Laterality Date ??? Cholecystectomy 2007 ??? HX C SECTION CLASSIC 1989 ??? HX CAROTID ENDARDECTOMY 2014 ??? HX TUBAL LIGATION 1989 ??? OTHER SURGERY excision of anal warts ??? NV FOOT/TOES SURGERY PROC UNLISTED ??? 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 [...] injection 3 mL 3 mL Intracatheter q8h Jasvir, Xiomara, MOLDING 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-UNARMED SECURITY GUARD And ??? 0.9% NaCl injection 1-10 mL 1-10 mL Intracatheter PRN Jasvir, Xiomara, MOLDING 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-UNARMED SECURITY GUARD ??? acetaminophen (Tylenol) tablet 1,000 mg 1,000 mg Oral pre-OP once Jasmin Moore APRN-CNP ??? ceFAZolin (Ancef) 2 g in 0.9% NaCl IV 50 mL IVPB 2 g Intravenous intra-OP once Xiomara Tay APRN-CNP ??? insulin regular human (HumuLIN R; NovoLIN R) 100 UNIT/ML injection 0-6 Units 0-6 Units Intravenous Once Jasmin Moore APRN-CNP ??? lactated ringers infusion Intravenous Continuous Xiomara Tay APRN-CNP ??? lactated ringers infusion Intravenous pre-OP continuous [...] - 3.8 BUN 25 18 18 - 21 CREATININE 0.72 1.18* 0.97* - 0.7 GLUCOSE [...] Ref Range Status 10/22/2023 - Final Specific [place] UA Date Value Ref Range Status 10/22/2023 1.000 Final Nitrite UA Date Value Ref Range Status 10/22/2023 - Final Mirco: No results for input(s): URINECULT in the last 45555 hours. CULTURE URINE Order: [id number] Collected 11/24/2023 13:43 ?? Status: Final result ?? Visible to patient: No (not released) ?? 0 Result Notes Component Culture Comment: ?? CULTURE, URINE, ROUTINE ? Micro Number: ?[id number] ?? Test Status: ? Final ?? Specimen Source: ?? Urine, clean catch ?? Specimen Quality: ??Adequate ?? Result: ?Mixed genital unruly isolated. These superficial ?bacteria are not indicative of a urinary tract ?infection. No further organism identification is ?warranted on this specimen. If clinically ?indicated, recollect clean-catch, mid-stream ?urine and transfer immediately to Urine Culture ?Transport Tube. REPORT COMMENT: FASTING:NO Test Performed at: [facility] ??[id number] GISELE JUSTICE MD Pathology: Most recent pathology [...] obtained and placed in chart. Belkys Taylor APRN-UNARMED SECURITY GUARD 12/07/2023 6:22 AM STANT BRANCH OPERATIONS MANAGER documented in this encounter OR Notes * [...] Kenan Argueta MD - Resident - Assisting Supervisor Respiratory(s): non Anesthesia Type: general LMA Complications: none [...] MD 12/07/2023 0811 C : Left Ureteral [place] Biopsy Biopsy, Excision Soft Tissue, Other PATHOLOGY TISSUE Jose Oliver MD 12/07/2023 0813 Implant(s): * No implants in log * Kenan Argueta MD STANT BRANCH OPERATIONS MANAGER * Operative - Jose Oliver MD - [...] draped in sterile fashion. We placed a 25-Khmer continuous flow resectoscope through the urethra into [...] good hemostatic effect. We then used a 22-Khmer scope and cannulated the left ureter with a 5-Khmer open-ended catheter and performed a retrograde pyelogram. [...] to determine next steps in care. MD ROMANA Craig/ralf .[id number] .[id number] Doc ID: [id number] Voice Job ID: [id number] STANT BRANCH OPERATIONS MANAGER documented in this encounter Plan of Treatment Upcoming Encounters Date Type Department Care Team (Late st Contact Info) Description 01/19/2025 11:30 AM ASSISTANT BRANCH OPERATIONS MANAGER Procedure visit [facility] - Urology [address] [facility] [address] [place] [address] Jose Oliver MD [address] [place] [address] documented as of this encounter Goals Goal [...] FL CYSTO SURGERY Routine 12/07/2023 8:10 PM ASSISTANT BRANCH OPERATIONS MANAGER Malignant neoplasm of urinary bladder, unspecified site (HCC) GLUCOSE - POINT OF CARE Routine 12/07/2023 8:38 AM ASSISTANT BRANCH OPERATIONS MANAGER CYTOLOGY NON-FISHER DIVING PANEL (STL) Routine 12/07/2023 8:21 AM ASSISTANT BRANCH OPERATIONS MANAGER Malignant neoplasm of urinary bladder, unspecified site (HCC) PATHOLOGY TISSUE Routine 12/07/2023 7:55 AM ASSISTANT BRANCH OPERATIONS MANAGER Malignant neoplasm of urinary bladder, unspecified site (HCC) NV CYSTO/URETERO/GEORGES LOSCOPY, DX 12/07/2023 7:45 AM ASSISTANT BRANCH OPERATIONS MANAGER Malignant neoplasm of urinary bladder, unspecified site (HCC) Case Notes Reviewed SM 11/29 NV CYSTOURETHROSCOPY ,URETER CATHETER 12/07/2023 7:45 AM ASSISTANT BRANCH OPERATIONS MANAGER Malignant neoplasm of urinary bladder, unspecified site (HCC) Case Notes Reviewed SM 11/29 NV CYSTOURETHROSCOPY ,FULGUR 2-5CM LESN 12/07/2023 7:45 AM ASSISTANT BRANCH OPERATIONS MANAGER Malignant neoplasm of urinary bladder, unspecified site (HCC) Case Notes Reviewed SM 11/29 GLUCOSE - POINT OF CARE Routine 12/07/2023 6:31 AM ASSISTANT BRANCH OPERATIONS MANAGER documented in this encounter Results * FL CYSTO SURGERY (12/07/2023 8:10 PM ASSISTANT BRANCH OPERATIONS MANAGER) Narrative [facility] - 12/07/2023 8:10 PM ASSISTANT BRANCH OPERATIONS MANAGER Fluoroscopy was used for this exam in the OR. Please see the Operative report. Jose Oliver MD FLUOROSCOPY ORDERA BLES [facility] * (ABNORMAL) GLUCOSE - POINT OF CARE (12/07/2023 8:38 AM ASSISTANT BRANCH OPERATIONS MANAGER) Glucose WB/POC 135(H) 70 - 115 mg/dL 12/07/2023 8:43 AM ASSISTANT BRANCH OPERATIONS MANAGER [facility] Specimen Type Cap Fingerstick 2023 8:43 AM ASSISTANT BRANCH OPERATIONS MANAGER [facility] Blood BLOOD SPECIMEN / Unknown 12/07/2023 8:38 AM ASSISTANT BRANCH OPERATIONS MANAGER 12/07/2023 8:43 AM ASSISTANT BRANCH OPERATIONS MANAGER Jose Oliver MD LAB - POINT OF CAR E ORDERABLES Performing Organization Address [facility]/ZIP Co de Phone Number [facility] [place] [phone], [facility] [phone] * CYTOLOGY NON-FISHER DIVING PANEL (STL) (12/07/2023 8:21 AM ASSISTANT BRANCH OPERATIONS MANAGER) Case Report Medical Cytology Report ? Case: [id number] ? Authorizing Provider: ??Jose Oliver MD ?Collected: ? 12/07/2023 08:21 AM ? Ordering Location: ? [facility] ?Received: ?12/07/2023 02:59 PM ? Pathologist: ? Jose Rico MD ? Specimen: ?Body Fluid , left ureteral ? 12/09/2023 12:32 PM [facility] Specimen Adequacy Adequate cellularity for evaluation. 12/09/2023 12:32 PM [facility] Final Diagnosis Left ureter, cytology from cystoscopy: - Atypical urothelial cells 12/09/2023 12:32 PM [facility] Clinical History The patient is [...] no obvious papillary mass. 12/09/2023 12:32 PM [facility] Gross Description 1 pap stained cytospin slide from 10cc pink fluid 12/09/2023 12:32 PM [facility] Microscopic Description Microscopic examination substantiates the final diagnosis. 12/09/2023 12:32 PM [facility] Pathologist Location at [facility] 12/09/2023 12:32 PM [facility] Disclaimer The performance characteristics of all immunohistochemical and indirect immunofluorescence stains (if any) cited in this report were determined by the Histopathology Laboratory of [facility]. Some of these tests rely on the use of analyte-specific reagents and are subject to specific labeling requirements by the [place] Food and Drug Administration. Such tests were developed by the Histology Laboratory of [facility] and have not been cleared or approved [...] the attending (teaching) pathologist. 12/09/2023 12:32 PM ASSISTANT BRANCH OPERATIONS MANAGER [facility] Embedded Images 12/09/2023 12:32 PM ASSISTANT BRANCH OPERATIONS MANAGER [facility] Pathology/Cytolo gy BODY FLUID SPECIMEN / Unknown Collection / Unknown 12/07/2023 8:21 AM ASSISTANT BRANCH OPERATIONS MANAGER 12/07/2023 2:59 PM ASSISTANT BRANCH OPERATIONS MANAGER Jose Oliver MD LAB - PATHOLOGY/AIDAN MUNOZ ORDERABLES Performing Organization Address [facility]/State/ZIP Co de Phone Number [facility] [address] [facility] [place] [address], [facility] [phone] * PATHOLOGY TISSUE (12/07/2023 7:55 AM ASSISTANT BRANCH OPERATIONS MANAGER) Case Report Surgical Pathology Report ? Case: [id number] ? Authorizing Provider: ??Jose Oliver MD ?Collected: ? 12/07/2023 07:55 AM ? Ordering Location: ? [facility] ?Received: ?12/07/2023 01:29 PM ? Pathologist: ? Memo Suarez MD ? Specimens: ?? A) - Bladder Biopsy, Bladder Tumor ? B) - Ureter Biopsy, Left Ureteral [place] Biopsy ? 12/09/2023 3:44 PM [facility] Final Diagnosis Urinary bladder, tumor, biopsy (A): - Fragments of predominantly denuded urothelium with follicular cystitis - No definite muscularis propria present - Negative for carcinoma Ureter, left, biopsy (B): - No diagnostic tissue present, see comment 12/09/2023 3:44 PM [facility] Microscopic Description and Comment Multiple deeper levels were examined on both parts A and B. Sections of the bladder (A) show areas of chronic inflammation and edema with denuded mucosa, compatible with follicular cystitis. The part A was compared with prior biopsy slides ([id number]). No significant atypia or malignancy seen in the current specimen. Sections of the left ureter biopsy (B) shows an area of acellular debris and some red blood cells without any viable tissue present. 12/09/2023 3:44 PM [facility] Clinical History This is a 62-year-old female with history of invasive urothelial cell carcinoma s/p TURBT, found to have an erythematous lesion overlying the left ureteral orifice during most recent cystoscopy. Operative procedure: Cystoscopy, transurethral resection of bladder tumor, left retrograde pyelogram and left diagnostic ureteroscopy with brush biopsy; Findings: erythema within the bladder, no obvious papillary mass. 12/09/2023 3:44 PM [facility] Gross Description The requisition and [...] in cassette B1. GW 12/09/2023 3:44 PM [facility] Pathologist Location at [facility] 12/09/2023 3:44 PM [facility] Disclaimer The performance characteristics of all immunohistochemical and indirect immunofluorescence stains (if any) cited in this report were determined by the Histopathology Laboratory of [facility]. Some of these tests were developed by [...] the attending (teaching) pathologist. 12/09/2023 3:44 PM [facility] Embedded Images 12/09/2023 3:44 PM [facility] Biopsy, Excision URINARY BLADDER BIOPSY SPECIMEN / Unknown 12/07/2023 7:55 AM ASSISTANT BRANCH OPERATIONS MANAGER 12/07/2023 1:29 PM ASSISTANT BRANCH OPERATIONS MANAGER Comment:Pre-op diagnosis: Malignant neoplasm of urinary bladder, unspecified site Biopsy, Excision BIOPSY OF URETER / Unknown 12/07/2023 8:11 AM ASSISTANT BRANCH OPERATIONS MANAGER 12/07/2023 1:29 PM ASSISTANT BRANCH OPERATIONS MANAGER Comment:Pre-op diagnosis: Malignant neoplasm of urinary bladder, unspecified site Jose Oliver MD LAB - PATHOLOGY/CY TAMMY ORDERABLES [facility] [address] [place], [place] [id number] [place] [address] * (ABNORMAL) GLUCOSE - POINT OF CARE (12/07/2023 6:31 AM ASSISTANT BRANCH OPERATIONS MANAGER) Glucose WB/POC 119(H) 70 - 115 mg/dL 12/07/2023 6:32 AM ASSISTANT BRANCH OPERATIONS MANAGER [facility] Specimen Type Venous 12/07/2023 6:32 AM ASSISTANT BRANCH OPERATIONS MANAGER [facility] Blood BLOOD SPECIMEN / Unknown 12/07/2023 6:31 AM ASSISTANT BRANCH OPERATIONS MANAGER 12/07/2023 6:32 AM ASSISTANT BRANCH OPERATIONS MANAGER Jose Oliver MD LAB - POINT OF CAR E ORDERABLES Performing Organization Address [facility]/State/ZIP Co de Phone Number [facility] [address] [place] [address], [facility] [phone] documented in this encounter Visit Diagnoses Diagnosis [...] MAR., Pre-op $ Given 12/07/2023 6:33 AM ASSISTANT BRANCH OPERATIONS MANAGER 1,000 mg albuterol (Proventil;Ventolin) (5 MG/ML) 0.5% nebulizer solution 2.5 mg 2.5 mg, Inhalation, POST-OP MULTIPLE, Starting on Wed12/07/23 at 0808, Until Wed12/07/23 at 1220, For wheezing. Notify anesthesia immediately., PACU $ Given 12/07/2023 9:03 AM ASSISTANT BRANCH OPERATIONS MANAGER 2.5 mg diphenhydrAMINE (Benadryl) injection 25 mg [...] MAR., PACU $ Given 12/07/2023 9:25 AM ASSISTANT BRANCH OPERATIONS MANAGER 50 mcg $ Given 12/07/2023 9:10 AM ASSISTANT BRANCH OPERATIONS MANAGER 50 mcg $ Given 12/07/2023 9:00 AM ASSISTANT BRANCH OPERATIONS MANAGER 50 mcg hydrALAZINE (Apresoline) injection 5 mg [...] MAR., PACU $ Given 12/07/2023 8:50 AM ASSISTANT BRANCH OPERATIONS MANAGER 0.5 mg $ Given 12/07/2023 8:40 AM ASSISTANT BRANCH OPERATIONS MANAGER 0.5 mg labetalol (Normodyne; Trandate) injection 5 mg 5 [...] Pre-op $ New Bag/Syringe 12/07/2023 6:33 AM ASSISTANT BRANCH OPERATIONS MANAGER 20 mL/hr lactated ringers infusion at 125 [...] the MAR. $ Given 12/07/2023 10:25 AM ASSISTANT BRANCH OPERATIONS MANAGER 5 mg prochlorperazine (Compazine) injection 10 mg 10 mg, Intravenous, ONCE PRN, Nausea/Vomiting, 1 dose, Starting on Wed12/07/23 at 0808, Until Wed12/07/23 at 1220, First choice, PACU documented in this encounter Active and Recently Administered Medications Times are shown in ASSISTANT BRANCH OPERATIONS MANAGER. Scheduled Medication Order 12/05/2023 12/06/2023 12/07/2023 0.9% [...] must be documented in the MAR., Pre-op 06 ($ Given - Prov ider: Katt Torres RN) albuterol (Proventil;Ventolin) (5 MG/ML) 0.5% nebulizer solution 2.5 mg 2.5 mg, Inhalation, POST-OP MULTIPLE, Starting on Wed12/07/23 at 0808, Until Wed12/07/23 at 1220, For wheezing. Notify anesthesia immediately., PACU 902 ($ Given - Prov ider: Ebony Colón RN) ceFAZolin (Ancef) 2 g in 0.9% NaCl IV 50 mL IVPB 2 g, at 100 mL/hr, Intravenous, INTRA-OP ONCE, 1 dose, On Wed12/07/23 at 0600, Administer 30 minutes prior to surgical incision., Indication for anti-infective therapy: Surgical prophylaxis, Pre-op 06 (Due) diphenhydrAMINE (Benadryl) injection 25 mg 25 [...] Colón RN)0910 ($ Given - Provider: Ebony Colón, RN)0925 ($ Given - Provider: Ebony Colón, ADONAY) HYDROmorphone (Dilaudid) injection 0.5 mg 0.5 mg, [...] Pre-op documented in this encounter Care Teams Private Detective Relationship Specialty Start Date End Date Deisi Andrews MD [address] [place] [id number] PCP - General Family Medicine 05/26/23 10/26/24 documented as of this encounter
--- OUTSIDE RECORDS SUMMARY | 2024-11-12 04:42 | XMS_ITS | Encounter Summary ---
Author Organization [facility] Address [address] [place] [address] Care Team Providers Care Knitter Wire Mesh Name Role Phone Deisi Andrews MD Primary Care Provider [phone] Reason for Visit * Auth/Cert (Routine) Specialty Diagnoses / Procedures Referred By Nacho brooks Referred To Contact Diagnoses Other hydronephrosis Other hydronephrosis Procedures SC CYSTOURETHROSCOPY,URETER CATHETER SC CYSTOSCOPY,DIL URETHRAL STRICTURE SC CYSTOSCOPY,INSERT URETERAL STENT CYSTOSCOPY WITH RETROGRADE PYELOGRAM CYSTOSCOPY DILATION URETHRA (WITH/WITHOUT MEATOTOMY) CYSTOSCOPY WITH INSERTION URETERAL STENT Referral ID Status Reason Start Date Expiration Date Visits Re quested Visits Authorized [id number] 1 1 Encounter Details Date Type Department Care Team (Late Contact Info) Description 01/17/2024 7:23 AM TRAVEL WRITER Anesthesia Event [facility] [address] [place] [address] Angelique Hampton MD [address] [place] [id number] Jeana Oneal, COMMANDING OFFICER [facility] [address] [facility] DEPT [facility] [place] [address] Anesthesia Record Procedure Summary Procedure Name Responsible Anesthesiologist Anesthesia Start Time Anesthesia Stop Time Cystoscopy, left retrograde pyelogram, bladder biopsy (Left) Angelique Hampton MD 01/17/24 0723 01/17/24 0820 Events Date Time Event Comment 01/17/2024 0704 0723 An Start 0723 Pt In Room 0723 An Start Data 0725 PT Reassessment 0731 Induction 0742 Anes Ready 0744 Time Out Anesthesia part icipated in timeout at the time documented in the record by nursing 0744 Proc Start 0813 Proc Stop 0813 An Emergence 0813 an stop data 0815 ANPTO2 0815 Pt out of Room 0820 An Stop Meds Name Total midazolam 2 mg/2mL injection 2 mg fentaNYL 100 mcg/2ml injection 100 mcg propofol 500 mg/50 mL 375.44 mg ceFAZolin (Ancef) 3,000 mg in 0.9% NaCl IV 115 mL IVPB 2 mg LR (Lactated ringers) 500 mL * Agents Name Insp. N2O Exp. N2O O2 * Blood No blood administrations on file. Lines, Drains, and Airways Type Details Placement Removal Peripheral IV Date: 01/17/24; Time : 05; Orientation: Right; Placed By: SC; Tolerance: Well 01/17/24 0558 by Jacquelin Dash RN 01/17/24 0942 by Jacquelin Dash RN documented in this encounter Social History [...] as of this encounter Progress Notes * Angelique Hampton MD - 01/17/2024 8:54 AM CST ANESTHESIA POSTOP EVALUATION NOTE Procedure: Cystoscopy, left retrograde pyelogram, bladder biopsy (Left) Rody Zaidi is a 63 year old female Patient Vitals for the past 6 hrs: BP Temp Pulse Resp SpO2 Pain Rating Score #1 Pain Scale/Observation Pulse - (SPO2/Cuff) 01/17/24 0545 -- 98.3 ??F (36.8 ??C) -- -- -- 8 N -- 01/17/24 0600 108/71 -- 72 14 97 % -- -- 74 bpm 01/17/24 0615 113/77 -- 64 12 98 % -- -- 65 bpm 01/17/24 0630 117/88 -- 69 16 97 % -- -- 68 bpm 01/17/24 0645 103/84 -- 69 12 97 % -- -- 68 bpm 01/17/24 0820 99/70 97 ??F (36.1 ??C) 64 14 100 % -- -- -- 01/17/24 0825 102/65 -- 64 25 98 % 6 N -- 01/17/24 0830 106/67 -- 63 12 97 % -- -- -- 01/17/24 0835 -- -- 64 14 95 % -- -- -- 01/17/24 0840 107/71 -- 66 16 97 % 5 N -- Anesthesia Type: MAC Pre-op Diagnosis Codes: * Other hydronephrosis [N13.39] Mental Status: awake and alert Neuro Status: No numbness, tingling or visual disturbances Respiratory Function: natural Cardiac Function: stable Postop Pain: acceptable to the patient Postop Hydration: adequate Postop Nausea: none Assessment: no apparent anesthetic complications, patient tolerated procedure well and no evidence of recall Patient Disposition: Release from Anesthesia Care NOTABLE EVENTS: There were no known notable events for this encounter. EL WRITER * Angelique Hampton MD - 01/12/2024 8:38 AM CST Images from the original note were not included. ANESTHESIA PREOPERATIVE EVALUATION NOTE Procedure: Cystoscopy, left retrograde pyelogram (Left) left ureteral balloon dilation (Left: Urethra) stent placement (Left) Vitals: No data found. LMP: No LMP recorded. Patient is postmenopausal. OB Status: Postmenopausal ANESTHESIA PRE-EVALUATION NOTE History of Present Illness: 62 year old female with history of 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 She is scheduled for cystoscopy, left retrograde pyelogram, left ureteral balloon dilation, stent placement. Medical history is significant for MDD, GIOVANNY, NIDDM, HTN, mild hypertrophic heart disease, paroxysmal A-fib-, sepsis C-diff (08/2023), nonobstructive CAD per 2019 cardiac cath (medical management), HLD, DJD, COPD/asthma , carpal tunnel syndrome, TIA (2013), GERD, CATHERINE, PVD (s/p peripheral revascularization on Plavix), carotid stenosis (s/p L carotid endarterectomy) Allergies- Penicillins, Bee Venom, Azithromycin; Risperidone; Statins (Hmg-coa-r Inhibitors); Codeine; Penicillin G; Triazolam, Haloperidol The patient is a current smoker ( 1ppd cigarettes/day; marijuana weekly). The patient was instructed to abstain from smoking on day of procedure. Physical Exam: Orientation X3 Airway/Mallampati Score: II Mouth Opening Distance: 2.5 fingerwidths (very small mouth opening) Neck ROM: full Teeth: edentulous Lungs: coarse throughout. Review of Systems: History of anesthetic complications: Yes Sleep Apnea Risk: Yes, CPAP - non compliant Malignant Hyperthermia: No Delayed Emergence: No Emergence Agitation: No Induction/Emergence Bronchospasm: No Post Dural Puncture Headache: No Atypical Pseudocholinesterase: No Difficult IV Access: Yes GERD: Yes, well controlled Poor Exercise Tolerance: Yes (limited due to back and bilateral leg pain; can walk 1/2 block with occasional LAKE (chronic)) Recent Chest Pain: No Shortness of Breath: Yes (chronic LAKE which is not worsening) AICD/Pacemaker: No Renal Disease: No Diagnostic Tests: ECG(s) reviewed: Yes (11/19/23) Echo(s) reviewed: Yes. Stress Test(s) reviewed: Yes. Cardiac Cath(s) reviewed: Yes. Lab(s) reviewed: Yes (11/22/23). Other Findings: 09/16/23 STRESS TEST CONCLUSIONS: No diagnostic ST changes. Global left ventricular function is normal. Left ventricular ejection fraction is 69 %. Myocardial perfusion imaging is normal. Recommend follow up with carpenter foreman. 12/31/21 TTE Findings consistent with mild effects of chronic HTN and mild hypertrophic heart disease. Findings as listed. No shunt detected. Normal venous, PVR and PA pressure. No prior study for comparison. The left ventricle is normal size. Left ventricular systolic function is hyperdynamic with an ejection fraction by Biplane Method of Discs of 78 %. Left ventricular segmental wall motion is normal. There is mild concentric left ventricular hypertrophy. The left ventricular diastolic function is abnormal (Grade II), consistent with mildly elevated left ventricle filling pressures. The right ventricular cavity size is normal. Normal right ventricular systolic function. The left atrium is mildly enlarged. The right atrium is normal. Estimated right atrial pressure 5 mmHg. There is no evidence of a right to left shunt by bubble study or Doppler interrogation. No shunt without and with Valsalva and cough. There is mild to moderate aortic valve sclerosis. Mild decreased mobility of the coronary cusps. There is no aortic stenosis with a peak velocity of 2.3 m/sec, mean gradient of 9 mmHg, aortic valve area of 1.9 cm??, and an NSDI of 0.57. There is no aortic regurgitation. There is no pulmonic regurgitation. Normal PVR of 1.4 Wood units. The mitral valve leaflets are mildy thickened. Mitral valve area by 2D Planimetry is 6.36 cm2. There is trace mitral regurgitation. Mitral valve regurgitant volume by pulsed Doppler quantitative flow method is 0.40 ml. There is trace tricuspid regurgitation. No pulmonary hypertension, estimated pulmonary arterial systolic pressure is 25 mmHg/mean PA pressure of 14-16 mmHg. The aortic root at the sinus of valsalva is normal in size measuring 2.99 cm with an index of 1.40 cm/m2. Grade I atheromatous disease seen in the aortic root and ascending aorta. No pericardial effusion. 12/25/19 CARDIAC CATH DIAGNOSTIC INTERPRETATIONS: Borderline angiographic lesion in the Proximal LAD which was non significant by DFR Otherwise non obstructive CAD ?? RECOMMENDATIONS AFTER DIAGNOSTIC CATHETERIZATION: Medical management of nonobstructive CAD. Aspirin 81 mg QDAY indefinitely. Aggressive modification of atherosclerotic risk factors. Maximize antianginal therapy. Further recommendation as per Outpatient Cardiology team. ?? ANESTHESIA PLAN ASA Score: 3 NPO Status: No solids since midnight Anesthesia Plan: MAC Planned Induction: intravenous Planned Postop Destination: PACU Anesthetic Plan discussion was: Consented Use of blood product discussion was: Consented The patient's procedural Anesthetic Plan was discussed with the anesthesiologist, attending and resident. This evaluation was based on PAT clinic visit I. Perioperative Cardiac Risk Index Stratification based on 2014 ACC/AHA Guidelines for patients undergoing noncardiac surgery Perioperative risk of a Major Adverse Cardiac Event (MACE) during hospitalization. Add one point (0-6) for each positive RCRI (Revised Cardiac Risk Indicator) 1. Is the Surgical Procedure High-Risk? NO 2. History of Ischemic Heart Disease? NO 3. History of CHF? no Murmur? no 4. History of Cerebrovascular Disease? Prior TIA or stroke yes Carotid bruit? no 5. Insulin-Dependent Diabetes? no Recent Labs Component Name 11/22/23 1036 10/06/21 1600 HGBA1C 6.4* 7.9* EAG 137 180 6. Preoperative Creatinine > 2 mg/dl? no Baseline Cr? 0.8 Total RCRI / MACE score 1 Point >= 0.9% Functional capacity > 4 METS? no If MACE < 1%, no further testing [...] as further workup may beindicated. II. Consults: no III. CIEDs: Does patient have a CIED (cardiovascular implantable electronic device eg: PM, AICD)? no IV. Anticoagulants: Are they receiving antiplatelet/anticoagulant medications (besides ASA)? What is the periop plan? Plavix hold 5 days, Eliquis hold 3 days V. Previous blood transfusion? no VII. Known CATHERINE or STOP-BANG> 5: yes Snoring, Tired, Observed apnea, high blood Pressure, BMI>35, Age>50, Neck circumference>18 VIII. Known or suspected difficult airway no IX. Frailty screen: No data recorded X. Suboxone (Buprenorphine / Naloxone) therapy? N/A GLP-1 Agonists No XI. Most recent EK11/19/23 ([facility]) Sinus rhythm 83 bpm XI. Additional testing needed within 3 months prior [...] or in need of review on DOS: POC glucose Summary: Rody Zaidi is a 63 year old female presenting for Cystoscopy, left retrograde pyelogram (Left) left ureteral balloon dilation (Left: Urethra) stent placement (Left). They have an ASA score of 3 and a RCRI / MACE score of 1 Point >= 0.9% Follow up results - have ALL the above ordered labs and vital signs been reviewed? YES - results are grossly WNL for this patient They ARE OPTIMIZED - PAT EVALUATION COMPLETE Jeana Oneal, MEI-EDUCATIONAL RESOURCE COORDINATOR 01/12/2024 8:40 AM for this procedure. Preoperative plan was not discussed with PAT attending, preoperative plan and physical exam will bediscussed with attending in holding area. Final clearance pending evaluation by the attending Anesthesiologist on the day of surgery. End of PAT Evaluation: BMI, Height, Weight Tobacco History Estimated body mass index is 31.53 kg/m?? as calculated from the following: Height as of 01/06/24: 1.6 m (5' 3 ). Weight as of 01/07/24: 80.7 kg (178 lb). Social History Tobacco Use Smoking Status Every Day ??? Packs/day: 1.00 ??? Years: 40.00 ??? Additional pack years: 0.00 ??? Total pack years: 40.00 ??? Types: Cigarettes Smokeless Tobacco Never Alcohol History Drug History Social History Substance and Sexual Activity Alcohol Use No Social History Substance and Sexual Activity Drug Use Yes ??? Types: Marijuana Comment: either edible or smoke joint 1 time per week Outpatient Medications: Inpatient Medications: No outpatient medications have been marked as taking for the 01/17/24 encounter (Anesthesia Event) with Jeana Oneal APRN-CNS. No current facility-administered medications for this visit. Allergies: Allergies Allergen Reactions ??? Risperidone Other Reported her face getting swollen ??? Statins [Hmg-Coa-R Inhibitors] Other Causes muscle tightness ??? Haloperidol Other unknown ??? Bee Venom Swelling ??? Codeine Itching ??? Triazolam Unknown Relevant Problems Anesthesia (+) Obstructive sleep apnea Cardiovascular (+) CAD in [place] artery (+) Essential (primary) hypertension (+) Other forms of angina pectoris (+) PAD (peripheral artery disease) ([facility]) Pulmonary (+) Chronic obstructive pulmonary disease ([facility]) (+) Obstructive sleep apnea (+) Other asthma GI (+) Gastro-esophageal reflux disease without esophagitis Endocrine (+) Type 2 diabetes mellitus with diabetic polyneuropathy ([facility]) Problem List: Patient Active Problem List Diagnosis Date Noted ??? CAD in [place] artery 10/24/2020 Priority: Not Prioritized ??? PAD (peripheral artery disease) ([facility]) Priority: Not Prioritized ??? MDD (recurrent major depressive disorder) in remission ([facility]) 08/05/2018 Priority: Not Prioritized ??? GIOVANNY (generalized anxiety disorder) 06/09/2017 ICD-10 update ??? Obesity 01/09/2017 ??? Nocturia 01/09/2017 ??? Personal history of transient ischemic attack (TIA), and cerebral infarction without residual deficits 01/09/2017 reported ??? Occlusion and stenosis of bilateral carotid arteries 01/09/2017 ??? Chronic pain syndrome 01/09/2017 ??? Type 2 diabetes mellitus with diabetic polyneuropathy ([facility]) 01/09/2017 EMG/NCV [facility] ??? Insomnia due to medical condition 01/09/2017 ??? Gastro-esophageal reflux disease without esophagitis 01/09/2017 ??? Primary osteoarthritis of one knee 01/09/2017 ??? Other asthma 01/09/2017 ??? Sleep related leg cramps 01/09/2017 ??? Other forms of angina pectoris 01/09/2017 ??? Essential (primary) hypertension 01/09/2017 ??? Hypersomnia due to medical condition 01/09/2017 ??? Chronic obstructive pulmonary disease ([facility]) 01/09/2017 ??? Personal history of traumatic brain injury 01/09/2017 Reports brief LOC. Age 17. ??? Restless legs syndrome 01/01/2017 ??? Obstructive sleep apnea 01/01/2017 ??? Cervicalgia 04/28/2015 ??? Other chronic pain 04/28/2015 Medical History: Past Medical History: Diagnosis Date ??? Anxiety ??? Asthma ??? Atherosclerosis of coronary artery ??? Bladder cancer ([facility]) ??? Cardiac dysrhythmia afib ??? Chest pain pain 10/23 ??? Chronic obstructive pulmonary disease (COPD) ([facility]) ??? Depression ??? Essential hypertension ??? GERD (gastroesophageal reflux disease) ??? History of diabetes mellitus ??? Obesity ??? Peripheral vascular disease (CMS-HCC) stents in both legs ??? Pure hypercholesterolemia ??? Sleep apnea does not use CPAP ??? Snoring ??? TIA (transient ischemic attack) Surgical History: Past Surgical History: Procedure Laterality Date ??? Cholecystectomy 2007 ??? CYSTOSCOPY Left 12/07/2023 Left; LEFT RETROGRADE PYELOGRAM ??? HX C SECTION CLASSIC 1989 ??? HX CAROTID ENDARDECTOMY 2014 ??? HX TUBAL LIGATION 1989 ??? OTHER SURGERY excision of anal warts ??? SC FOOT/TOES SURGERY PROC UNLISTED ??? TRANS URETHRAL RESECT BLADDER TUMOR 03/23/2022 TRANSURETHRAL RESECTION BLADDER TUMOR (TURBT) ??? TRANS URETHRAL RESECT BLADDER TUMOR N/A 01/18/2023 N/A; Blue light cystoscopy and transurethral resection of bladder tumor ??? TRANS URETHRAL RESECT BLADDER TUMOR N/A 12/07/2023 N/A; TRANSURETHRAL RESECTION BLADDER TUMOR (TURBT) ??? Tympanostomy 2013 ??? URETEROSCOPY Left 03/23/2022 Left; URETEROSCOPY ??? URETEROSCOPY Left 12/07/2023 Left; LEFT URETEROSCOPY, LEFT URETERAL BIOPSY FINANCIAL REPORTING ADVISOR Status: No LMP recorded. Patient is postmenopausal. Postmenopausal OB History No obstetric history on file. Covid Vaccine: Lab Results: Recent Labs Base Name 12/07/23 0838 [id number] 135* SPECIMENTYPE Cap Fingerstick Recent Labs Component Name 11/22/23 1036 WBC 9.9 RBC 4.94 HCT 40.8 HGB 13.6 PLTCOUNT 260 MCV 82.6 MCH 27.5 MCHC 33.3 MPV 10.1 Recent Labs Component Name 10/22/23 1055 NITRITE - PROTEINUA 1+ Recent Labs Component Name 11/22/23 1036 POTASSIUM 4.3 CALCIUM 9.1 CO2 25 GLUCOSE 126* BUN 25 CREATININE 0.72 No results found for requested labs within last 120 days. Recent Labs Result Component Current Result Anion Gap 9 (11/22/2023) eGFR by CKD-EPI >90 (11/22/2023) EL WRITER documented in this encounter Miscellaneous Notes * Anesthesia Transfer of Care - Jimmy Harp DO - 01/17/2024 8:20 AM TRAVEL WRITER ANESTHESIA TRANSFER OF CARE NOTE Today's Date: 01/17/2024 Date of : 1960 Patient: Rody Zaidi Procedure(s): Cystoscopy, left retrograde pyelogram, bladder biopsy Surgeon(s): Primary: Jose Oliver MD Resident - Assisting: Kenan Argueta MD; Cisco Portillo MD Preop Diagnosis: Pre-op Diagnois: * Other hydronephrosis [N13.39] Pre-op Meds (From admission, onward) Start Stop Status Route Frequency Ordered 01/17/24 0819 albuterol (Proventil;Ventolin) (5 MG/ML) 0.5% nebulizer solution 2.5 mg -- Sent IN POST-OP MULTIPLE 01/17/24 0819 01/17/24 0819 diphenhydrAMINE (Benadryl) injection 25 mg -- Sent IV ONCE PRN 01/17/24 0819 01/17/24 0819 fentaNYL (PF) (Sublimaze) injection 25 mcg -- Sent IV EVERY 10 MIN PRN 01/17/24 0819 01/17/24 0819 fentaNYL (PF) (Sublimaze) injection 50 mcg -- Sent IV EVERY 10 MIN PRN 01/17/24 0819 01/17/24 0819 glycopyrrolate (Robinul) injection 0.2 mg -- Sent IV ONCE PRN 01/17/24 0819 01/17/24 0819 hydrALAZINE (Apresoline) injection 5 mg -- Sent IV POST-OP MULTIPLE 01/17/24 0819 01/17/24 0819 HYDROmorphone (Dilaudid) injection 0.5 mg -- Sent IV EVERY 10 MIN PRN 01/17/24 0819 01/17/24 0600 insulin regular human (HumuLIN R; NovoLIN R) 100 UNIT/ML injection 0-6 Units 01/17/24 1759 Verified IV ONCE 01/17/24 0546 01/17/24 0819 labetalol (Normodyne; Trandate) injection 5 mg -- Sent IV POST-OP MULTIPLE 01/17/24 0819 01/17/24 06 lactated ringers infusion -- Dispensed IV PRE-OP CONTINUOUS 01/17/24 0546 01/17/24818 metoclopramide (Reglan) injection 10 mg -- Sent IV ONCE PRN 01/17/2419 01/17/24818 naloxone (Narcan) injection 0.04 mg -- Sent IV POST-OP MULTIPLE 01/17/2419 01/17/24818 prochlorperazine (Compazine) injection 10 mg -- Sent IV ONCE PRN 01/17/24818 Post-op Diagnosis: * Other hydronephrosis [N13.39] . Allergies Allergen Reactions ??? Risperidone Other Reported her face getting swollen ??? Statins [Hmg-Coa-R Inhibitors] Other Causes muscle tightness ??? Haloperidol Other unknown ??? Bee Venom Swelling ??? Codeine Itching ??? Triazolam Unknown Vitals: Patient Vitals for the past 3 hrs: BP Temp Pulse Resp SpO2 Pain Rating Score #1 01/17/24 0645 103/84 -- 69 12 97 % -- 01/17/24 0630 117/88 -- 69 16 97 % -- 01/17/24 0615 113/77 -- 64 12 98 % -- 01/17/24 0600 108/71 -- 72 14 97 % -- 01/17/24 0545 -- 98.3 ??F (36.8 ??C) -- -- -- 8 Lines, Drains, and Airways Type Details Placement Removal Peripheral IV Date: 01/17/24; Time: 557; Orientation: Right; Location: Forearm; Placed By: SC; Gauge: 20 Gauge; Tolerance: Well 01/17/24557 by Jacquelin Guillen RN Intraprocedure I/O Totals Intake LR (Lactated ringers) 500.00 mL Total Intake 500 mL Patient Transfer Location: PACU Transport Airway: spontaneous respirations and supplemental O2 Transport Monitoring: heart rate and continuous pulse oximetry Complications: None Handoff Given? Yes Checklist or [...] understanding of report from the receiving PACUteam. Jimmy Harp DO EL WRITER documented in this encounter Plan of Treatment Upcoming Encounters Date Type Department Care Team (Late st Contact Info) Description 01/19/2025 11:30 AM TRAVEL WRITER Procedure visit [facility] Urology [address] [facility] [address] [place] [id number] Jose Oliver MD [address] OF [place]OLOGIC [place] [id number] documented as of this encounter Goals Goal [...] Action Date Dose Rate Site ceFAZolin (Ancef) 3,000 mg in 0.9% NaCl IV 115 mL IVPB Intravenous, CONTINUOUS PRN, Starting on Wed01/17/24 at 0733, Until Wed01/17/24 at 0820, Anesthesia Intra-op $ New Bag/Syringe 01/17/2024 7:33 AM TRAVEL WRITER 2 mg fentaNYL (PF) (Sublimaze) injection Intravenous, PRN, Starting on Wed01/17/24 at 0738, Until Wed01/17/24 at 0820, Anesthesia Intra-op $ Given 01/17/2024 8:05 AM TRAVEL WRITER 25 mcg $ Given 01/17/2024 7:51 AM TRAVEL WRITER 25 mcg $ Given 01/17/2024 7:38 AM TRAVEL WRITER 50 mcg lactated ringers infusion Intravenous, CONTINUOUS PRN, Starting on Wed01/17/24 at 0730, Until Wed01/17/24 at 0820, Anesthesia Intra-op $ New Bag/Syringe 01/17/2024 7:30 AM TRAVEL WRITER midazolam (Versed) injection Intravenous, PRN, Starting on Wed01/17/24 at 0722, Until Wed01/17/24 at 0820, Anesthesia Intra-op $ Given 01/17/2024 7:22 AM TRAVEL WRITER 2 mg propofol (Diprivan) infusion Intravenous, CONTINUOUS PRN, Starting on Wed01/17/24 at 0730, Until Wed01/17/24 at 0820, Anesthesia Intra-op $ Given 01/17/2024 8:05 AM TRAVEL WRITER 20 mg Rate Change 01/17/2024 8:01 AM TRAVEL WRITER 80 mcg/kg/min 39.216 mL /hr Rate Change 01/17/2024 7:53 AM TRAVEL WRITER 100 mcg/kg/min 49.02 mL /hr documented in this encounter Care Teams Knitter Wire Mesh Relationship Specialty Start Date End Date Deisi Andrews MD [address] [place] [address] PCP - General Family Medicine 05/26/23 10/26/24 documented as of this encounter
--- OUTSIDE RECORDS SUMMARY | 2024-11-12 04:42 | XMS_ITS | Encounter Summary ---
Author Organization [facility] Health Address [address] [place] [address] Care Team Providers Care Heavy Duty Mechanic Name Role Phone Deisi Andrews MD Primary Care Provider [phone] Encounter Details Date Type Department Care Team (Late st Contact Info) Description 12/16/2023 Orders Only [facility] - Urology [address] [place] [address] [address] [place] [phone] Jose Oliver MD [address] OF UROLOGIC [place] [address] Other hydronephrosis Social History Tobacco Use Types Packs/Day Years [...] Progress Notes * Jose Oliver MD - 12/16/2023 2:19 PM CST Called and discussed pathology. No cancer seen. Left ureteral findings suggestive of stricture from previous TUR. She notes pain with tea / caffeine intake on left flank still. I discussed that due to concern for malignant at last procedure, we did not aggressively dilate or place stent. She would like endoscopic management of stricture attempted to decrease pain. Cystoscopy, left retrograde pyelogram, left ureteral balloon dilation and stent placement K PILOT documented in this encounter Plan of Treatment Upcoming Encounters Date Type Department Care Team (Late st Contact Info) Description 01/19/2025 11:30 AM CHECK PILOT Procedure visit [facility] - Urology [address] [place] [address] [address] [place] [address] Jose Oliver MD [facility] UROLOGIC [place] [address] documented as of this encounter Goals Goal [...] encounter Visit Diagnoses Diagnosis Other hydronephrosis- Primary documented in this encounter Care Teams Heavy Duty Mechanic Relationship Specialty Start Date End Date Deisi Andrews MD [address] [place] [address] DANNIE Rodríguez [phone] PCP - General Family Medicine 05/26/23 10/26/24 documented as of this encounter
--- OUTSIDE RECORDS SUMMARY | 2024-11-12 04:42 | XMS_ITS | Encounter Summary ---
Author Organization [facility] [place] Address [address] [place] [address] Care Team Providers Care Yarn Wrapper Name Role Phone eDisi Andrews MD Primary Care Provider [phone] Reason for Visit * Auth/Cert (Routine) Specialty Diagnoses / Procedures Referred By Nacho brooks Referred To Contact Diagnoses Other hydronephrosis Other hydronephrosis Procedures [place] CYSTOURETHROSCOPY,URETER CATHETER [place] CYSTOSCOPY,DIL URETHRAL STRICTURE [place] CYSTOSCOPY,INSERT URETERAL STENT CYSTOSCOPY WITH RETROGRADE PYELOGRAM CYSTOSCOPY DILATION URETHRA (WITH/WITHOUT MEATOTOMY) CYSTOSCOPY WITH INSERTION URETERAL STENT Referral ID Status Reason Start Date Expiration Date Visits Re quested Visits Authorized [id number] 1 1 Encounter Details Date Type Department Care Team (Late Contact Info) Description 01/17/2024 7:30 AM LEHR CUTTER - 01/17/2024 8:45 AM LEHR CUTTER Surgery [facility] [address] [place] [id number] Jose Oliver MD [address] [facility] 2L [place] [id number] Cystoscopy, left retrograde pyelogram, bladder biopsy Surgery Details Date/Time Status Location OR Service Patient Class Case Class Case Type Trauma Case? 01/17/2024 7:[address] [facility] OR OR Urology Surgery Day Care Elective > 5 days Panel 1 Procedure LRB Anes Op Region Wound Class Comments Cystoscopy, left retrograde pyelogram, bladder biopsy Left MAC Clean Contamina leah Surgeon Surgeon Role Service Panel Jose Oliver MD Primary Urology 1 Kenan Argueta MD Resident - Assisting Urology 1 Cisco Portillo MD Resident - Assisting Urology 1 Case Notes Reviewed SM 01/12 documented in this encounter Social History Tobacco [...] Sign Reading Time Taken Comments Blood Pressure 107/75 01/17/2024 8:45 AM LEHR CUTTER Pulse 55 01/17/2024 8:45 AM LEHR CUTTER Temperature 36.1 ??C (97 ??F) 01/17/2024 8:20 AM LEHR CUTTER Respiratory Rate 18 01/17/2024 8:45 AM LEHR CUTTER Oxygen Saturation 96% 01/17/2024 8:45 AM LEHR CUTTER Inhaled Oxygen Concentration 40% 01/17/2024 8 :20 AM LEHR CUTTER Weight 81.7 kg (180 lb 3.2 oz) 01/17/2024 5:43 A M LEHR CUTTER Height 160 cm (5' 3 ) 01/17/2024 5:43 AM LEHR CUTTER Body Mass Index 31.92 01/17/2024 5:43 AM LEHR CUTTER documented in this encounter Functional Status Functional [...] No 01/17/2024 documented as of this encounter Discharge Instructions * Discharge Instructions* Mariana Zamora MD - 01/17/2024 8:23 AM LEHR CUTTER Images from the original note were not included. [facility] Urology You had a procedure called a called a bladder biopsy. During the surgery, a surgeon placed a thin, lighted tube (cystoscope) into the bladder through the urethra. The urethra is the part of your bodythat carries urine from the bladder to the outside of the body. The surgeon used a tool to either remove/biopsy the mass or burn it away with high-energy electricity. It is not uncommon to have bloodin your urine or to pass some small clots for a few days after surgery. This should resolve over the next few days. Blood Thinners You may restart your plavix and eliquis in 2 day if your urine is clear During the Procedure What to expect during [...] Follow Up: We will call you with your pathology results from today. You are scheduled for lasix renal scan at [facility] on April 20 at 9AM. You are scheduled to follow up with Dr Oliver on WednesdayApril 21 with clinic cystoscopy at 9:45 AM.If you need to cancel or reschedule the appointment please call [phone]. The [facility] is located at [address] [place] [address], [address], [place] [address]. The phone number to clinic is [phone] if you need to cancel or re-schedule. Please arrive 15 minutes early. Post Operative Pain Control: - You can take Tylenol (acetaminophen) and Motrin (Ibuprofen) in alternating fashion every 4-6 hours, especially in the first 24-48 hours after surgery, then as needed thereafter. - You may also be prescribed narcotic pain medication such as Oxycodone, [place], or Tramadol. This should be taken as needed for severe pain only. Do not drink alcohol, drive, or operate heavy machinery while taking this type of medication. If the narcotic is [place], please understand that [place] has Tyelonol in it. If you are also taking Tylenol or other Tylenol containing products make sure you donot exceed 4g (4000mg) of Tylenol within a 24 hour time period. - You may also be prescribed a medication called Ditropan. This can be taken as needed to help withurinary urgency, frequency and bladder pain. Bowel Regimen/Constipation in the Post-Op Period: - You are encouraged to take over the counter prescriptions to prevent constipation, which can worsen while taking narcotics (pain medications). - It is highly encouraged to take Colace/Docusate, a stool softener, twice daily during your healing period. This prevents constipation or straining while having a bowel movement. - You can also take a laxative such as Miralax daily to help with post op constipation. - If you are still experiencing constipation after 2-3 days of taking Miralax, you're encouraged totry Senna (a stimulant) daily. - Ideally, your bowel movements should be soft and not require any straining. However if diarrhea starts to occur it's recommended to stop Senna first, then stop Miralax and finally Colace/Docusate, if necessary. - The above medications, along with adequate fluid intake, decreased use of narcotics and activity (as allowed per post-op instructions), should help prevent constipation. Self-Care: - Drink plenty of water and try to limit the amount of caffeine you drink. Caffeine may be found incoffee, tea, soda, sports drinks, and foods. Caffeine can irritate the bladder. - Do not drive while on narcotics and 24 hours after anesthesia. - Please ask your surgeon when it is ok to return to work. - Get up and walk around, but avoid exercise or heavy activities until you feel better. You can likely return to your normal routine in 1 to 2 days. In [...] surgery or the recovery process, please contact [facility] Urology [phone] (Option #1: scheduling, Option #2 Nurse line, Option #3 surgery scheudler, Option#4 administration) on weekdays during regular business hours. If you have an urgent or emergent question on a weekend or after regular business hours, please contact [facility] Hospital at [phone] and ask for the provider fire control technician b for Urology. In addition, please contact us [...] to the touch, or non-clear, foul-smelling drainage) CUTTER documented in this encounter Medications at Time of Discharge Medication Sig Dispensed Refills Start Date End Date albuterol (PROVENTIL;VENTOLIN) (2.5 MG/3ML) 0.083% nebulizer solution Inhale 2.5 (two and one-half) mg by mouth every 4 hours as needed for Shortness of Breath 75 mL 11/03/2021 albuterol HFA (PROAIR HFA) 108 (90 Base) MCG/ACT inhalerIndications:Sta ge 2 moderate COPD by GOLD classification ([facility]) Inhale 2 (two) puffs by mouth every [...] needed for Angina 100 tablet 4 12/08/2021 ondansetron, disintegrating, (Zofran ODT) 8 MG tablet 01/09/2024 sotalol (Betapace) 80 MG tablet Take 1.5 (one and one-half) tablets by mouth every 12 hours 10/28/2023 vitamin D, ergocalciferol, (DRISDOL) 88398 UNITS capsule Take 1 (one) capsule by mouth every 7 days 01/29/2019 acetaminophen (TYLENOL) 325 MG tablet Take 2 (two) tablets by mouth every 6 hours as needed for Fever or Pain Maximum allowable Acetaminophen amount = 4 Grams (4000 mg) / 24 hours. 60 tablet 03/23/2022 06/21/2024 HYDROcodone-acetaminop hen ([place]) 5-325 MG tabletIndications:Othe r hydronephrosis Take 1 (one) tablet by mouth every 6 hours as needed for Pain 4 tablet 01/17/2024 02/16/2024 LORazepam (Ativan) 0.5 MG tablet Take 1 (one) tablet by mouth 3 times daily as needed for Anxiety 90 tablet 01/14/2024 02/14/2024 oxyBUTYnin CR 24hr (Ditropan XL) 15 MG tabletIndications:Anastasiya gnant neoplasm of urinary bladder, unspecified site ([facility]),Bladder spasms,Urinary frequency Take 1 (one) tablet by mouth once daily 90 tablet 4 11/01/2023 09/01/2024 pantoprazole EC (PROTONIX) 40 MG tabletIndications:need follow up visit for further [phone] option 1 Take 1 (one) tablet by mouth once daily Reasons: need follow up visit for further [phone] option 1 90 tablet 3 01/23/2022 06/15/2024 Symbicort 160-4.5 MCG/ACT inhalerIndications:Sta ge 2 moderate COPD by GOLD classification ([facility]) INHALE 2 PUFFS BY MOUTH TWICE DAILY 10.2 g 07/07/2023 06/15/2024 documented as of this encounter H&P Notes * Kenan Argueta MD - 01/17/2024 6:24 AM CST Urologic Surgery Pre-Operative H&P Note Admit Date: 01/17/2024 NAME: Arnold Cruz AGE: [age] year old SEX: female HPI: Arnold Cruz is a 63 year old female with a hx of recurrent NMIBC and left distal ureteral stricture who presents for operative intervention. Since DARIO, no concerns. REVIEW OF SYSTEMS Constitutional: Denies: fever, chills Eyes: Denies glasses/contacts, glaucoma or cataracts ENT/Mouth: Denies hearing loss, hearing aid, nose bleeds, tinnitus, or vertigo Cardiovascular: Denies chest pain/tightness, angina, palpitations, orthopnea, or syncope Resp: Denies wheezing, chronic cough, hemoptysis, dyspnea on exertion or dyspnea at rest GI: Denies hematemesis, constipation, diarrhea, melena, hematochezia, jaundice, fecal incontinence,reflux, or nausea/voming : Denies dysuria, hematuria, nocturia, urinary incontinence, or impotence Musculoskeletal: Patient denies arthritis, back pain, or difficulty walking. Skin: Patient denies rashes or skin lesions/cancer Neurological: Patient denies fainting/blackout, seizures, hemiplegia, hemiparesis, impaired sensorium, or headaches. Psychiatric: Patient denies memory loss, anxiety or depression. Endocrine: Patient denies heat intolerance, cold intolerance or weight gain. Hem/Lymph: Patient denies anemia, easy bruising, previous transfusion, or history of bleeding too much after surgery or dental procedures. Vascular: Patient denies claudication, rest pain, amaurosis fugax, history of aneurysm, DVT or PE. Patient Active Problem List Diagnosis Date Noted ??? CAD in [place] artery 10/24/2020 Priority: Not Prioritized ??? PAD (peripheral artery disease) ([facility] Priority: Not Prioritized ??? MDD (recurrent major depressive disorder) in remission ([facility]) 08/05/2018 Priority: Not Prioritized ??? GIOVANNY (generalized anxiety disorder) 06/09/2017 ICD-10 update ??? Obesity 01/09/2017 ??? Nocturia 01/09/2017 ??? Personal history of transient ischemic attack (TIA), and cerebral infarction without residual deficits 01/09/2017 reported ??? Occlusion and stenosis of bilateral carotid arteries 01/09/2017 ??? Chronic pain syndrome 01/09/2017 ??? Type 2 diabetes mellitus with diabetic polyneuropathy (CMS-HCC) 01/09/2017 EMG/NCV [facility] ??? Insomnia due to medical condition 01/09/2017 ??? Gastro-esophageal reflux disease without esophagitis 01/09/2017 ??? Primary osteoarthritis of one knee 01/09/2017 ??? Other asthma 01/09/2017 ??? Sleep related leg cramps 01/09/2017 ??? Other forms of angina pectoris 01/09/2017 ??? Essential (primary) hypertension 01/09/2017 ??? Hypersomnia due to medical condition 01/09/2017 ??? Chronic obstructive pulmonary disease (CMS-HCC) 01/09/2017 ??? Personal history of traumatic brain injury 01/09/2017 Reports brief LOC. Age 17. ??? Restless legs syndrome 01/01/2017 ??? Obstructive sleep apnea 01/01/2017 ??? Cervicalgia 04/28/2015 ??? Other chronic pain 04/28/2015 Past Medical History: Diagnosis Date ??? Anxiety [...] ??? Snoring ??? TIA (transient ischemic attack) Past Surgical History: Procedure Laterality Date ??? Cholecystectomy 2006 ??? CYSTOSCOPY Left 12/07/2023 Left; LEFT RETROGRADE PYELOGRAM ??? HX C SECTION CLASSIC 1989 ??? HX CAROTID ENDARDECTOMY 2014 ??? HX TUBAL LIGATION 1989 ??? OTHER SURGERY excision of anal warts ??? [place] FOOT/TOES SURGERY PROC UNLISTED ??? TRANS URETHRAL [...] 12/07/2023 Left; LEFT URETEROSCOPY, LEFT URETERAL BIOPSY Medications Prior to Admission Medication Sig Dispense Refill ??? acetaminophen (TYLENOL) 325 MG tablet Take 2 (two) tablets by mouth every 6 hours as needed forFever or Pain Maximum allowable Acetaminophen amount = 4 Grams (4000 mg) / 24 hours. 60 tablet 0 ??? albuterol (PROVENTIL;VENTOLIN) (2.5 MG/3ML) 0.083% nebulizer solution Inhale 2.5 (two and one-half) mg by mouth every 4 hours as needed for Shortness of Breath (Patient not taking: Reported on 11/22/2023) 75 mL 0 ??? albuterol HFA (PROAIR HFA) 108 (90 Base) MCG/ACT inhaler Inhale 2 (two) puffs by mouth every 4 hours as needed 8.5 g 11 ??? ascorbic acid (Vitamin C) 500 MG tablet Take 1 (one) tablet by mouth once daily ??? cetirizine (ZYRTEC) 10 MG tablet cetirizine 10 mg tablet TAKE 1 TABLET BY MOUTH ONCE DAILY NEEDED ??? clopidogrel (PLAVIX) 75 MG tablet Take 1 (one) tablet by mouth once daily 90 tablet 0 ??? cromolyn (CROLOM) 4 % ophthalmic solution Instill 1 drop into both eyes 3 times daily 10 mL 4 ??? cyclobenzaprine (Flexeril) 10 MG tablet 1 po tid prn ??? Eliquis 5 MG tablet Take 1 (one) tablet by mouth every 12 hours ??? EPINEPHrine (EPIPEN) 0.3 MG/0.3ML auto-injector pen epinephrine 0.3 mg/0.3 mL injection, auto-injector ??? evolocumab (REPATHA SURECLICK) 140 MG/ML auto-injector INJECT 1 PEN UNDER THE SKIN EVERY 14 DAYS (Patient not taking: Reported on 01/06/2024) 6 mL 4 ??? ezetimibe (ZETIA) 10 MG tablet Take 1 (one) tablet by mouth once daily 90 tablet 4 ??? FLUoxetine (PROzac) 20 MG capsule Take 1 (one) capsule by mouth once daily 30 capsule 1 ??? fluticasone propionate (Flonase) 50 MCG/ACT nasal spray USE 1 SPRAY(S) IN EACH NOSTRIL ONCE DAILY ??? HYDROcodone-acetaminophen ([place]) 5-325 MG tablet Take 1 (one) tablet by mouth every 6 hours asneeded ??? hyoscyamine (Levsin) 0.125 MG IR tablet TAKE 1 TABLET BY MOUTH EVERY 4 HOURS NEEDED FOR SPASMS (Patient not taking: Reported on 01/06/2024) 30 tablet 0 ??? ibuprofen (MOTRIN) 600 MG tablet Take 1 (one) tablet by mouth every 6 hours as needed (for postoperative pain) (Patient not taking: Reported on 01/06/2024) 30 tablet 0 ??? LORazepam (Ativan) 0.5 MG tablet Take 1 (one) tablet by mouth 3 times daily as needed for Anxiety 90 tablet 0 ??? losartan (COZAAR) 100 MG tablet Take 1 (one) tablet by mouth once daily 90 tablet 4 ??? metFORMIN (GLUCOPHAGE) 500 MG tablet Take 1 (one) tablet by mouth 2 times daily with morning and evening meal ??? metoclopramide (Reglan) 5 MG tablet Take 1 (one) tablet by mouth every 6 hours as needed ??? multivitamin daily tablet Take 1 (one) tablet by mouth daily with food ??? nitroGLYCERIN (NITROSTAT) 0.4 MG tablet Dissolve 1 (one) tablet under the tongue every 5 minutes as needed for Angina (Patient not taking: Reported on 01/06/2024) 100 tablet 4 ??? ondansetron, disintegrating, (Zofran ODT) 8 MG tablet ??? oxyBUTYnin CR 24hr (Ditropan XL) 15 MG tablet Take 1 (one) tablet by mouth once daily (Patient not taking: Reported on 01/06/2024) 90 tablet 4 ??? pantoprazole EC (PROTONIX) 40 MG tablet Take 1 (one) tablet by mouth once daily Reasons: need follow up visit for further [phone] option 1 (Patient not taking: Reported on 01/17/2024) 90 tablet 3 ??? sotalol (Betapace) 80 MG tablet Take 1.5 (one and one-half) tablets by mouth every 12 hours ??? Symbicort 160-4.5 MCG/ACT inhaler INHALE 2 PUFFS BY MOUTH TWICE DAILY (Patient not taking: Reported on 01/06/2024) 10.2 g 0 ??? vitamin D, ergocalciferol, (DRISDOL) 57186 UNITS capsule Take 1 (one) capsule by mouth every 7 days Allergies Allergen Reactions ??? Risperidone Other Reported her face getting swollen ??? Statins [Hmg-Coa-R Inhibitors] Other Causes muscle tightness ??? Haloperidol Other unknown ??? Bee Venom Swelling ??? Codeine Itching ??? Triazolam Unknown Family History: Family History Problem Relation Name Age of Onset ??? Depression Mother ??? Alcohol abuse Father ??? Depression Sister ??? Thyroid Disease Neg Hx Social History: Social History Socioeconomic History ??? Marital status: Single Tobacco Use ??? Smoking status: Every Day Packs/day: 1.00 Years: 40.00 Additional pack years: 0.00 Total pack years: 40.00 Types: Cigarettes ??? Smokeless tobacco: Never Vaping Use ??? Vaping Use: Never used Substance and Sexual Activity ??? Alcohol use: No ??? 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 Date last employed: 30 years ago Vital Signs: Temp 98.3 ??F (36.8 ??C) (Oral) Ht 1.6 m (5' 3 ) Wt 81.7 kg (180 lb 3.2 oz) Physical Exam: General: NAD Head/Neck: Normocephalic ENT: EOMI CV: Regular rate, regular rhythm Lungs: No increased respiratory effort Abdomen: Soft, non-distended, non tender Genitourinary: deferred Extremities: No edema Neuro: Awake, alert Labs: Recent Labs Component Name 11/22/23 1036 03/11/22 1045 10/06/21 1600 WBC 9.9 12.5* 10.2 HGB 13.6 14.9 13.5 HCT 40.8 46.2* 41.4 MCV 82.6 85.2 88.8 Recent Labs Component Name 11/22/23 1036 03/11/22 1045 10/06/21 1600 10/21/20 0812 09/04/20 0729 NA 141 - 140 - 138 CL 107 - 104 - 104 CO2 25 25 27 - 24 BUN 25 18 18 - 21 CREATININE 0.72 1.18* 0.97* - 0.7 CALCIUM 9.1 9.3 9.3 - 8.6 - = values in this interval not displayed. Recent Labs Component Name 10/06/21 1600 PROT 6.7 ALB 3.3* TBILI 0.2 AST 11 ALT 16 ALKPHOS 78 Recent Labs Component Name 10/21/20 0812 INR 1.0 No results for input(s): PHART , PO2ART , TSP8WGD , BEART in the last 23636 hours. Lab results smartLinks are not currently available Micro: No results found for this or any previous visit (from the past 72 hour(s)). Pathology: none Imaging: none Assessment: Arnold Cruz is a 63 year old female who presents with left flank pain and left distal ureteral stricture in the setting of prior TURBTs for recurrent NMIBC. Plan: -To OR for cystoscopy, left retrograde pyelogram, left ureteral balloon dilation, stent placement - Periop ancef I have seen and discussed this patient with Dr. Oliver. Kenan Argueta MD Urology Resident 01/17/2024 6:25 AM CUTTER documented in this encounter OR Notes * Brief Op Note - Kenan Argueta MD - 01/17/2024 7:44 AM CST Brief Op Note Procedure: Cystoscopy, left retrograde pyelogram, bladder biopsy Patient Name: Arnold Cruz Date of Service: 01/17/2024 Pre-Op Diagnosis: Other hydronephrosis Post-Op Diagnosis: same Surgeon(s) and Role: * Jose Oliver MD - Primary * Cisco Portillo MD - Resident - Assisting * Kenan Argueta MD - Resident - Assisting World Travel Counselor(s): Mariana Zamora MD Anesthesia Type: MAC Complications: none Findings: left UO appears widely patent, 5fr open ended easily traversed. RGPG demonstrating mild hydro but otherwise drains briskly. Small mounded area on right lateral wall biopsied and fulgurated. EBL: blood loss of 2 ml Urine Output : not recorded IV Fluid Intake: per anesthesia Drains: * No LDAs found * Specimen(s): ID Type Source Tests Collected by Time Destination A : bladder biopsy Biopsy, Excision Soft Tissue, Other PATHOLOGY TISSUE Jose Oliver MD 01/17/2024 0811 Implant(s): * No implants in log * Kenan Argueta MD CUTTER * Operative - Kenan Argueta MD - 01/17/2024 7:44 AM CST Operative Report NAME: ARNOLD CRUZ : 1960 AGE: 63 PROC DATE: 01/17/2024 SEX: F SURGEON: Jose Oliver M.D. ATTENDING SURGEON: Jose Oliver M.D. RESIDENTS: 1. Kenan Argueta M.D. 2. Mariana Zamora M.D. PROCEDURE: Cystoscopy, left retrograde pyelogram, bladder biopsy with fulguration. PREOPERATIVE DIAGNOSIS: Bladder cancer and left hydronephrosis. POSTOPERATIVE DIAGNOSIS: Bladder cancer and left hydronephrosis. ANESTHESIA: MAC. ESTIMATED BLOOD LOSS: 2 mL. SPECIMENS: Bladder biopsy. INTRAVENOUS FLUIDS: Per anesthesia. FINDINGS: Left ureteral orifice appeared widely patent and able to accommodate a 5-Afghan open-ended catheter easily. Retrograde pyelogram demonstrating mild hydro but otherwise drains briskly. Smallmounded area on the right lateral wall, biopsied and fulgurated. INDICATIONS FOR PROCEDURE: This patient is a 63-year-old female with a past medical history of recurrent non-muscle invasive bladder cancer, status post multiple TURBTs, which included resecting of the left ureteral orifics in the past due to tumor locations. Most recently back in November, the patient was found to have left-sided hydronephrosis. She underwent a repeat TURBT with diagnostic ureteroscopy and found to have erythematous changes medial to the ureteral orifice. This was resected and found to be benign. The patient has persistent pain on the left side associated with fluid intake. Given this, we recommended cystoscopy and possible balloon dilation in the operating room, pending intraoperative findings. After discussion of risks, benefits, and alternatives of the procedure, consent was obtained. DESCRIPTION OF PROCEDURE: The patient was brought back to the operating room and placed in supine position. After induction of anesthesia, administration of IV antibiotics, the patient was then placed in dorsal lithotomy. Her perineum and genitalia were prepped and draped in normal sterile fashion.Timeout was then performed. A 22-Afghan rigid cystoscope was used to enter the bladder. A systematic cystoscopy revealed the right ureteral orifice in orthotopic position and the left ureteral orifice displaced laterally, which is expected given previous resections. There was an area medial to thiswith a healing scar from her prior resection in November. Her left ureteral orifice did appear to be relatively patent and did not appear to be stenotic. We did note an area on the right lateral wall that appeared erythematous and somewhat mounded. We cannulated the left ureteral orifice with a 5-Afghan open-ended catheter rather easily. Contrast was injected. Interpretation of left retrograde pyelogram demonstrated mild hydroureter without any significant hydronephrosis. There was no significant narrowing distally. Once we removed the open-ended catheter, the left ureteral orifice drained briskly. Sequential fluoroscopic images demonstrated adequate drainage of the left collecting system. Given this, we elected to not balloon dilate her left ureteral orifice. Attention was then turned to the area of concern on the right lateral wall. Using cold cup biopsy forceps, we biopsied this area. The area was fulgurated with Bugbee cautery. Hemostasis was achieved. The biopsy was sent for analysis. Bladder was drained. This concluded the procedure. The patient tolerated the procedure well and was transferred to PACU in stable condition. Dr. Oliver was present and participated in the procedure. PLAN: The patient will be discharged today. She will follow up in 3 months for surveillance cystoscopy and a renal scan prior to this appointment. We will call her with pathology results. MD Jose Calderon MD JO/ralf .[id number] .[id number] Doc ID: [id number] Voice Job ID: [id number] CUTTER Associated attestation - Jose Oliver MD - 01/17/2024 10:07 AM LEHR CUTTER I was present for the entire procedure. documented in this encounter Plan of Treatment Upcoming Encounters Date Type Department Care Team (Late st Contact Info) Description 01/19/2025 11:30 AM LEHR CUTTER Procedure visit [facility] - Urology [address] [place] [address] [address] [place] [id number] Jose Oliver MD [address] [place] [id number] documented as of this encounter Goals Goal Patient Goal Type Associated Problems Recent Progress Patient-Stated? Author Medication Management General On track( 1:21 PM CDT) Tamiko Torres, RN Note: [...] Associated Diagnosis Comments [place] CYSTO SURGERY Routine 01/17/2024 7:04 PM LEHR CUTTER Other hydronephrosis GLUCOSE - POINT OF CARE Routine 01/17/2024 8:30 AM LEHR CUTTER PATHOLOGY TISSUE Routine 01/17/2024 8:11 AM LEHR CUTTER Other hydronephrosis [place] CYSTOURETHROSCOP Y,URETER CATHETER 01/17/2024 7:44 AM LEHR CUTTER Other hydronephrosis Case Notes Reviewed 01/12 GLUCOSE - POINT OF CARE Routine 01/17/2024 6:02 AM LE[facility] CUTTER documented in this encounter Results * NM RENAL SCAN W DRUG (04/20/2024 [...] kidney. > Dictated by Margi Brooke MD (Jig Grinder) 04/20/2024 9:43 AM I, Samira Tariq DO have personally reviewed and interpreted this examination/study. > Interpreting Provider: Samira Tariq DO on 04/20/2024 3:39 PM Narrative 04/20/2024 3:39 PM CDT PROCEDURE: ??NM RENAL SCAN W DRUG, DATE/TIME OF EXAM: ??04/20/2024 9:58 AM, LOCATION ??[facility] INDICATION: N13.39: Other hydronephrosis ADDITIONAL CLINICAL INFORMATION: [...] DATE/TIME OF EXAM: 04/20/2024 9:58 AM, LOCATION [facility] INDICATION: N13.39: Other hydronephrosis ADDITIONAL CLINICAL INFORMATION: [...] kidney. > Dictated by Margi Brooke MD (Jig Grinder) 04/20/2024 9:43 AM I, Samira Tariq DO have personally reviewed and interpreted this examination/study. > Interpreting Provider: Samira Tariq DO on 04/20/2024 3:39 PM Jose Oliver MD NM ORDERABLES * [place] CYSTO SURGERY (01/17/2024 7:04 PM [facility] CUTTER) Narrative [facility] - 01/17/2024 7:04 PM [facility] C[facility]TER Fluoroscopy was used for this exam in the OR. Please see the Operative report. Jose Oliver MD FLUOROSCOPY ORDERA BLES [facility] * (ABNORMAL) GLUCOSE - POINT OF CARE (01/17/2024 8:30 AM LE[facility] CUTTER) Glucose WB/POC 128(H) 70 - 115 mg/dL 01/17/2024 8:34 AM [facility] C[facility] Specimen Type Cap Fingerstick 2023 8:34 AM [facility] C[facility]TER [facility] Blood BLOOD SPECIMEN / Unknown 01/17/2024 8:30 AM [facility] C[facility]TER 01/17/2024 8:34 AM [facility] C[facility]TER Jose Oliver MD LAB - POINT OF CAR E ORDERABLES [facility] [address] [address], [facility] [phone] * PATHOLOGY TISSUE (01/17/2024 8:11 AM LEHR CUTTER) Case Report Surgical Pathology Report ? Case: [id number] ? Authorizing Provider: ??Jose Oliver MD ?Collected: ? 01/17/2024 08:11 AM ? Ordering Location: ? [facility] ?Received: ?01/17/2024 09:50 AM ? Pathologist: ? Nicole Glaser MD ? Specimen: ?Bladder Biopsy, bladder biopsy ? 01/18/2024 12:34 PM [facility] Final Diagnosis Bladder, biopsy (A): - Benign urothelial mucosa with submucosal chronic inflammation - Muscularis propria not present 01/18/2024 12:34 PM [facility] Microscopic Description and Comment Microscopic examination substantiates the final diagnosis. 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 01/18/2024 12:34 PM [facility] Gross Description The requisition and specimen(s) are identified with the patient's name, Arnold Cruz. Received in formalin, specimen A , is a single pink biopsy, 0.5 x 0.4 x 0.3 cm, submitted in toto in cassette A1. GW 01/18/2024 12:34 PM [facility] Pathologist Location at [facility] 01/18/2024 12:34 PM [facility] Disclaimer The performance characteristics of all immunohistochemical and indirect immunofluorescence stains (if any) cited in this report were determined by the Histopathology [facility] of [facility]. Some of these tests were [...] and interpreted by the attending (teaching) pathologist. 01/18/2024 12:34 PM [facility] C[facility] Embedded Images 01/18/2024 12:34 PM [facility] C[facility]TER [facility] Biopsy, Excision URINARY BLADDER BIOPSY SPECIMEN / Unknown 01/17/2024 8:11 AM LE[facility] CUTTER 01/17/2024 9:50 AM [facility] CUTTER Comment:Pre-op diagnosis: Other hydronephrosis Jose Oliver MD LAB - PATHOLOGY/CY KIOGY ORDERABLES Performing Organization Address City/[facility]/ZIP Co de Phone Number [facility] [address] [phone] * (ABNORMAL) GLUCOSE - POINT OF CARE (01/17/2024 6:02 AM LEHR CUTTER) Glucose WB/POC 134(H) 70 - 115 mg/dL 01/17/2024 6:22 AM LE[facility] CUTTER [facility] Specimen Type Venous 01/17/2024 6:22 AM [facility] Blood BLOOD SPECIMEN / Unknown 01/17/2024 6:02 AM LE[facility] CUTTER 01/17/2024 6:22 AM [facility] CUTTER Jose Oliver MD LAB - POINT OF CAR E ORDERABLES Performing Organization Address [facility]/ZIP Co de Phone Number [facility] [address] [place] [address], [facility] [phone] documented in this encounter Visit Diagnoses Diagnosis Other hydronephrosis- Primary Other hydronephrosis Other hydronephrosis documented in this encounter Administered Medications Inactive Administered Medications - up to 3 most recent administrations Medication Order MAR Action Action Date Dose Rate Site albuterol (Proventil;Ventolin) (5 MG/ML) 0.5% nebulizer solution 2.5 mg 2.5 mg, Inhalation, POST-OP MULTIPLE, Starting on Wed01/17/24 at 0819, Until Wed01/17/24 at 1049, For wheezing. Notify anesthesia immediately., PACU diphenhydrAMINE (Benadryl) injection 25 mg 25 mg, Intravenous, ONCE PRN, Nausea/Vomiting, 1 dose, Starting on Wed01/17/24 at 0819, Until Wed01/17/24 at 1049, Second choice, use if first choice was ineffective., PACU fentaNYL (PF) (Sublimaze) injection 25 mcg 25 mcg, Intravenous, EVERY 10 MIN PRN, Mild Pain, 4 doses, Starting on Wed01/17/24 at 0819, Until Wed01/17/24 at 1049, Maximum total of 4 doses. If patient [...] injection 50 mcg 50 mcg, Intravenous, EVERY 10 MIN PRN, Moderate Pain, 4 doses, Starting on Wed01/17/24 at 0819, Until Wed01/17/24 at 1049, Maximum total of 4 doses. If patient [...] documented in the MAR., PACU $ Given 01/17/2024 8:40 AM LE[facility] CUTTER 50 mcg $ Given 01/17/2024 8:25 AM [facility] CUTTER 50 mcg glycopyrrolate (Robinul) injection 0.2 mg 0.2 mg, Intravenous, ONCE PRN, bradycardia, 1 dose, Starting on Wed01/17/24 at 0819, Until Wed01/17/24 at 1049, For heart rate less than 40. Notify physician., PACU hydrALAZINE (Apresoline) injection 5 mg 5 mg, Intravenous, POST-OP MULTIPLE, 4 doses, Starting on Wed01/17/24 at 0819, Until Wed01/17/24 at 1049, IV given slowly over 1 minute, up to 20 mg. Repeat 5 mg IV dose every 10-15 minutes for sustained hypertension SBP greater than 180, DBP greater than 100., PACU HYDROcodone-acetaminophe n ([place]) 5-325 MG tablet 1 tablet 1 tablet, Oral, Once, 1 dose, On Wed01/17/24 at 0915, Patient preference for lesser PRN pain meds may be honored when the patient requests a less strong medication, a lower dose, or a less intrusive route of administration when the lesser drug, dose and route have been ordered for the patient. This patient request must be documented in the MAR. $ Given 01/17/2024 9:12 AM LE[facility] CUTTER 1 tablet HYDROmorphone (Dilaudid) injection 0.5 mg 0.5 mg, Intravenous, EVERY 10 MIN PRN, Severe Pain, 4 doses, Starting on Wed01/17/24 at 0819, Until Wed01/17/24 at 104, Maximum total of 4 doses If patient [...] must be documented in the MAR., PACU iohexol (Omnipaque 300) contrast PRN, Starting on Wed01/17/24 at 0747, Until Wed01/17/24 at 0819, Intra-op $ Given 01/17/2024 7:47 AM LE[facility] CUTTER 30 mL Operative Site labetalol (Normodyne; Trandate) injection 5 mg 5 mg, Intravenous, POST-OP MULTIPLE, 4 doses, Starting on Wed01/17/24 at 0819, Until Wed01/17/24 at 1049, IV given slowly over 1 minute up to 20 mg. Repeat every 10-15 minutes in 5 mg doses. Hold if heart rate is less than 60. Give for hypertension SBP greater than 180, DBP greater than 100., PACU lactated ringers infusion at 20 mL/hr, Intravenous, PRE-OP CONTINUOUS, Starting on Wed01/17/24 at 0600, Until Wed01/17/24 at 1049, Pre-op $ New Bag/Syringe 01/17/2024 5:58 AM LE[facility] CUTTER 20 mL/hr metoclopramide (Reglan) injection 10 mg 10 mg, Intravenous, ONCE PRN, Nausea/Vomiting, 1 dose, Starting on Wed01/17/24 at 0819, Until Wed01/17/24 at 1049, Third choice, use if first and second choice was ineffective., PACU naloxone (Narcan) injection 0.04 mg 0.04 mg, Intravenous, POST-OP MULTIPLE, Starting on Wed01/17/24 at 0819, Until Wed01/17/24 at 1049, If respirations are less than 8 per minute and O2 sat is less than 90%, bag/mask patient and notify anesthesia immediately. If directed to administer naloxone, dilute 0.4mg in 9mL normal saline for dilution of 0.04mg/mL. Administer 1mL over 30 seconds while observing the patient response and titrating to effect. If no response, continue IV naloxone at the same rate up to a total of 0.8 mg of diluted naloxone., PACU prochlorperazine (Compazine) injection 10 mg 10 mg, Intravenous, ONCE PRN, Nausea/Vomiting, 1 dose, Starting on Wed01/17/24 at 0819, Until Wed01/17/24 at 1049, First choice, PACU documented in this encounter Active and Recently Administered Medications Times are shown in LE[facility] CUTTER. Scheduled Medication Order 01/15/2024 01/16/2024 01/17/2024 albuterol (Proventil;Ventolin) (5 MG/ML) 0.5% nebulizer solution 2.5 mg 2.5 mg, Inhalation, POST-OP MULTIPLE, Starting on Wed01/17/24 at 0819, Until Wed01/17/24 at 1049, For wheezing. Notify anesthesia immediately., PACU hydrALAZINE (Apresoline) injection 5 mg 5 mg, Intravenous, POST-OP MULTIPLE, 4 doses, Starting on Wed01/17/24 at 0819, Until Wed01/17/24 at 1049, IV given slowly over 1 minute, up to 20 mg. Repeat 5 mg IV dose every 10-15 minutes for sustained hypertension SBP greater than 180, DBP greater than 100., PACU HYDROcodone-acetaminophen ([place]) 5-325 MG tablet 1 tablet (COMPLETED)(Linked Group 1) 1 tablet, Oral, Once, 1 dose, On Wed01/17/24 at 0915, Patient preference for lesser PRN pain meds may be honored when the patient requests a less strong medication, a lower dose, or a less intrusive route of administration when the lesser drug, dose and route have been ordered for the patient. This patient request must be documented in the 911 ($ Given - Prov ider: Jacquelin Guillen RN) insulin regular human (HumuLIN R; NovoLIN R) 100 UNIT/ML injection 0-6 Units 0-6 Units, Intravenous, ONCE, 1 dose, On Wed01/17/24 at 0600, POC Glucose Regular Insulin Dose 0 - 151 mg/dL = 0 units 151 - 180 mg/dL = 2 units 181 - 220 mg/dL = 3 units 221 - 260 mg/dL = 4 units 261 - 300 mg/dL = 5 units Above 300 mg/dL = 6 units . WASTE DISPOSAL INSTRUCTIONS: Black Bin Disposal required., Pre-op 0654 (Not Administer ed - Provider: Jacquelin Guillen RN - Reason: Per Administration Instructions) labetalol (Normodyne; Trandate) injection 5 mg 5 mg, Intravenous, POST-OP MULTIPLE, 4 doses, Starting on Wed01/17/24 at 0819, Until Wed01/17/24 at 1049, IV given slowly over 1 minute up to 20 mg. Repeat every 10-15 minutes in 5 mg doses. Hold if heart rate is less than 60. Give for hypertension SBP greater than 180, DBP greater than 100., PACU naloxone (Narcan) injection 0.04 mg 0.04 mg, Intravenous, POST-OP MULTIPLE, Starting on Wed01/17/24 at 0819, Until Wed01/17/24 at 1049, If respirations are less than 8 per minute and O2 sat is less than 90%, bag/mask patient and notify anesthesia immediately. If directed to administer naloxone, dilute 0.4mg in 9mL normal saline for dilution of 0.04mg/mL. Administer 1mL over 30 seconds while observing the patient response and titrating to effect. If no response, continue IV naloxone at the same rate up to a total of 0.8 mg of diluted naloxone., PACU Continuous Medication Order 01/15/2024 01/16/2024 01/17/2024 lactated ringers infusion at 20 mL/hr, Intravenous, PRE-OP CONTINUOUS, Starting on Wed01/17/24 at 0600, Until Wed01/17/24 at 1049, Pre-op 0558 ($ New Bag/Syri nge - Provider: Jacquelin Guillen RN) PRN Medication Order 01/15/2024 01/16/2024 01/17/2024 diphenhydrAMINE (Benadryl) injection 25 mg 25 mg, Intravenous, ONCE PRN, Nausea/Vomiting, 1 dose, Starting on Wed01/17/24 at 0819, Until Wed01/17/24 at 1049, Second choice, use if first choice was ineffective., PACU fentaNYL (PF) (Sublimaze) injection 25 mcg 25 mcg, Intravenous, EVERY 10 MIN PRN, Mild Pain, 4 doses, Starting on Wed01/17/24 at 0819, Until Wed01/17/24 at 1049, Maximum total of 4 doses. If patient [...] injection 50 mcg 50 mcg, Intravenous, EVERY 10 MIN PRN, Moderate Pain, 4 doses, Starting on Wed01/17/24 at 0819, Until Wed01/17/24 at 1049, Maximum total of 4 doses. If patient [...] must be documented in the MAR., PACU 0825 ($ Given - Prov ider: Snow Olson RN)0840 ($ Given - Provider: Snow Olson RN) glycopyrrolate (Robinul) injection 0.2 mg 0.2 mg, Intravenous, ONCE PRN, bradycardia, 1 dose, Starting on Wed01/17/24 at 0819, Until Wed01/17/24 at 1049, For heart rate less than 40. Notify physician., PACU HYDROmorphone (Dilaudid) injection 0.5 mg 0.5 mg, Intravenous, EVERY 10 MIN PRN, Severe Pain, 4 doses, Starting on Wed01/17/24 at 0819, Until Wed01/17/24 at 1049, Maximum total of 4 doses If patient [...] must be documented in the MAR., PACU iohexol (Omnipaque 300) contrast (CANCELED) PRN, Starting on Wed01/17/24 at 0747, Until Wed01/17/24 at 0819, Intra-op 0747 ($ Given - Prov ider: Kenan Argueta MD - Comment: given to sterile field) metoclopramide (Reglan) injection 10 mg 10 mg, Intravenous, ONCE PRN, Nausea/Vomiting, 1 dose, Starting on Wed01/17/24 at 0819, Until Wed01/17/24 at 1049, Third choice, use if first and second choice was ineffective., PACU prochlorperazine (Compazine) injection 10 mg 10 mg, Intravenous, ONCE PRN, Nausea/Vomiting, 1 dose, Starting on Wed01/17/24 at 0819, Until Wed01/17/24 at 1049, First choice, PACU Linked Groups Order Group 1: HYDROcodone-acetaminophen ([place]) 5-325 MG tablet 1 tablet (COMPLETED)Jump to med 1 tablet, Oral, Once, 1 dose, On Wed01/17/24 at 0915, Patient preference for lesser PRN pain meds may be honored when the patient requests a less strong medication, a lower dose, or a less intrusive route of administration when the lesser drug, dose and route have been ordered for the patient. This patient request must be documented in the MAR. Or HYDROcodone-acetaminophen ([place]) 5-325 MG tablet 2 tablet (COMPLETED) 2 tablet, Oral, Once, 1 dose, On Wed01/17/24 at 0915, Patient preference for lesser PRN pain meds may be honored when the patient requests a less strong medication, a lower dose, or a less intrusive route of administration when the lesser drug, dose and route have been ordered for the patient. This patient request must be documented in the MAR. documented in this encounter Care Teams Yarn Wrapper Relationship Specialty Start Date End Date Deisi Andrews MD [address] [place] [address] [place] [address] PCP - General Family Medicine 05/26/23 10/26/24 documented as of this encounter
--- OUTSIDE RECORDS SUMMARY | 2024-11-12 04:42 | XMS_ITS | Encounter Summary ---
Author Organization [facility] Address [address] [place] [address] Care Team Providers Care Urology Physician Name Role Phone Deisi Andrews MD Primary Care Provider [phone] Reason for Referral * (Routine) - Open Specialty Diagnoses / Procedures Referred By Nacho brooks Referred To Contact Procedures Follow up with provider Jose Oliver MD [facility] [address] [address] [place] [address] [place] [address] [address] [place] [address] Referral ID Status Reason Start Date Expiration Date Visits Re quested Visits Authorized [id number] Open 06/21/2024 06/21/2025 1 1 Reason for Visit * Auth/Cert (Routine) Specialty Diagnoses / Procedures Referred By Nacho brooks Referred To Contact Diagnoses Malignant neoplasm of urinary bladder, unspecified site (HCC) Malignant neoplasm of urinary bladder, unspecified site (HCC) Procedures TN CYSTO/URETERO/PYELOSCOPY W/BX TN URETERAL REFLUX STUDY CYSTOSCOPY WITH BIOPSY CYSTOGRAM Referral ID Status Reason Start Date Expiration Date Visits Re quested Visits Authorized [id number] 1 1 Encounter Details Date Type Department Care Team (Latest Contact Info) Description 06/21/2024 6:55 AM CDT - 06/21/2024 11:30 AM CDT Hospital Encounter [facility] [address] [place] [address] Jose Oliver MD [address] [facility] [place] [id number] Surgery General Discharge Disposition: Home or Self [...] Sign Reading Time Taken Comments Blood Pressure 123/79 06/21/2024 11:15 AM CDT Pulse 58 06/21/2024 11:15 AM CDT Temperature 36.6 ??C (97.9 ??F) 06/21/2024 10:30 AM C DT Respiratory Rate 24 06/21/2024 11:15 AM CDT Oxygen Saturation 97% 06/21/2024 11:15 AM CDT Inhaled Oxygen Concentration 21% 06/21/2024 8 :20 AM CDT Weight 81.2 kg (179 lb) 06/21/2024 8:09 AM CDT Height 160 cm (5' 3 ) 06/21/2024 8:09 AM CDT Body Mass Index 31.71 06/21/2024 8:09 AM CDT documented in this encounter Functional [...] No 06/21/2024 documented as of this encounter Discharge Instructions * Discharge Instructions* Vivek Scott MD - 06/21/2024 10:43 AM CDT Images from the original note were not included. [facility] You had a procedure called a [...] should resolve over the next few days. During the Procedure What to expect during [...] urine while the bladder heals. Follow Up: You are scheduled to follow up with Dr Oliver on 12/22/2024 - 11:30 with in office cystoscopy. F you need to cancel or reschedule the appointment please call [phone]. We will call with path results in 1-2 weeks. The [facility] is located at [address] [place] [address], [address], [place] [address]. The phone number to clinic is [phone] if you need to cancel or re-schedule. Please arrive 15 minutes early. Post Op Antibiotic: You have been prescribed an antibiotic (Bactrim). Please take as instructed. Post Operative Pain Control: - You can take Tylenol (acetaminophen) and Motrin (Ibuprofen) in alternating fashion every 4-6 hours, especially in the first 24-48 hours after surgery, then as needed thereafter. - You may also be prescribed narcotic pain medication such as Oxycodone, [place], or Tramadol. This should be taken as needed for severe pain only. Do not drink alcohol, drive, or operate heavy machinery while taking this type of medication. If the narcotic is [place], please understand that [place] has Tyelonol in it. If you are [...] surgery or the recovery process, please contact [facility] Urology [phone] (Option #1: scheduling, Option #2 Nurse line, Option #3 surgery scheudler, Option#4 administration) on weekdays during regular business hours. If you have an urgent or emergent question on a weekend or after regular business hours, please contact [facility] Hospital at [phone] and ask for the provider instructional specialist for Urology. In addition, please contact us [...] to the touch, or non-clear, foul-smelling drainage) documented in this encounter Medications at Time of Discharge Medication Sig Dispensed Refills Start Date End Date acetaminophen (Tylenol) 325 MG tablet Take 2 (two) tablets by mouth every 6 hours as needed for Fever or Pain Maximum allowable Acetaminophen amount = 4 Grams (4000 mg) / 24 hours. 06/21/2024 albuterol (PROVENTIL;VENTOLIN) (2.5 MG/3ML) 0.083% nebulizer solution Inhale 2.5 (two and one-half) mg by mouth every 4 hours as needed for Shortness of Breath 75 mL 11/03/2021 albuterol HFA (PROAIR HFA) 108 (90 Base) MCG/ACT inhalerIndications:Sta ge 2 moderate COPD by GOLD classification ([facility]) Inhale 2 (two) puffs by mouth every [...] 10 MG tablet 1 po tid prn dexlansoprazole (Dexilant) 30 MG capsule Take 1 (one) capsule by mouth once daily Eliquis 5 MG tablet Take 1 (one) [...] (one) tablet by mouth daily with food nicotine (Nicoderm CQ) 21 MG/24HR patchIndications:MDD (recurrent major depressive disorder) in remission (HCC) Apply 1 (one) patch to skin once daily 30 patch 2 06/19/2024 nicotine (Nicotrol) 10 MG inhalerIndications:MDD (recurrent major depressive disorder) in remission (HCC) Inhale 10 mg by mouth as needed for Smoking Cessation 168 Each 2 06/19/2024 nitroGLYCERIN (NITROSTAT) 0.4 MG tablet Dissolve 1 (one) tablet under the tongue every 5 minutes as needed for Angina 100 tablet 4 12/08/2021 ondansetron, disintegrating, (Zofran ODT) 8 MG tablet 01/09/2024 sotalol (Betapace) 80 MG tablet Take 1.5 (one and one-half) tablets by mouth every 12 hours 10/28/2023 vitamin D, ergocalciferol, (DRISDOL) 60729 UNITS capsule Take 1 (one) capsule by mouth every 7 days 01/29/2019 FLUoxetine (PROzac) 20 MG capsule Take 1 (one) capsule by mouth once daily 30 capsule 2 06/19/2024 09/18/2024 LORazepam (Ativan) 0.5 MG tablet Take 1 (one) tablet by mouth 3 times daily as needed for Anxiety 90 tablet 2 06/20/2024 09/18/2024 oxyBUTYnin CR 24hr (Ditropan XL) 15 MG tabletIndications:Anastasiya gnant neoplasm of urinary bladder, unspecified site (HCC),Bladder spasms,Urinary frequency Take 1 (one) tablet by mouth once daily 90 tablet 4 11/01/2023 09/01/2024 documented as of this encounter H&P Notes * [place] Knutson, MEI-BROKER IN CHARGE - 06/21/2024 7:44 AM CDT [facility] Division of Urologic Surgery Pre-Operative H&P Today's Date: 06/08/2024 Patient Name: Arnold Cruz : 1960 HISTORY OF PRESENT ILLNESS (HPI): Arnold Cruz is a 63 year old year old female with a history of bladder cancer who presents today for a scheduled CYSTOSCOPY, BLADDER BIOPSY with Dr Oliver. Hx: 01/2022: TURBT, HG pT1 , CT with left hydroureter and lateral wall lesion 03/2022: Repeat TURBT: no malignancy 07/2022: Office cysto, negative 11/2022: Office cysto: erythematous changes of bladder mucosa 01/2023: Bluelight cysto, TURBT: no malignancy 04/2023: office cysto, negative 10/2023: office cysto with left wall erythema 11/2023: OR with bladder biopsy and left ureteroscopy, negative 01/2024: OR with left ureteroscopy, negative 04/2024: NM Renal Scan due to left flank pain, normal Last tumor: 01/2022 Last imagin10/2023 CTU PAT: Anesthesia assessed patient on 06/19/2024 who noted no further work-up needed for this procedure. Final clearance pending evaluation by the attending Anesthesiologist on the day of surgery. 06/21: Dr Peña aware of wheezing, dry cough: Albuterol inhaler ordered. Medical/Cardiac clearance: not indicated in the surgical order or by PAT NPO>8 hours? : Yes Anticoagulants in past 7 days? Stopped Eliquis and Plavix on 06/16 Pre-admission antibiotics? No. UA neg 06/07. No Ucx indicated Social History: Current smoker: Cigarettes 1ppd Denies daily drinking Recreational drug use: smokes 1 joint/week ALLERGIES: Allergies Allergen Reactions Risperidone Other Reported her face getting swollen Statins [Hmg-Coa-R Inhibitors] Other Causes muscle tightness Haloperidol Other unknown Bee Venom Swelling Codeine Itching Triazolam Unknown PAST MEDICAL HISTORY: Past Medical History: Diagnosis Date Anxiety Asthma (HCC) Atherosclerosis of coronary artery Bladder cancer (HCC) Cardiac dysrhythmia afib Chest pain pain 10/23 Chronic obstructive pulmonary disease (COPD) (HCC) Depression Essential hypertension GERD (gastroesophageal reflux disease) History of diabetes mellitus Obesity Peripheral vascular disease (HCC) stents in both legs Pure hypercholesterolemia Sleep apnea does not use CPAP Snoring TIA (transient ischemic attack) PAST SURGICAL HISTORY: Past Surgical History: Procedure Laterality Date Cholecystectomy 2006 CYSTOSCOPY Left 12/07/2023 Left; LEFT RETROGRADE PYELOGRAM CYSTOSCOPY Left 01/17/2024 Left; Cystoscopy, left retrograde pyelogram, bladder biopsy HX C SECTION CLASSIC 1989 HX CAROTID ENDARDECTOMY 2014 HX TUBAL LIGATION 1989 OTHER SURGERY excision of anal warts TN FOOT/TOES SURGERY PROC UNLISTED TRANS URETHRAL RESECT BLADDER TUMOR 03/23/2022 TRANSURETHRAL RESECTION BLADDER TUMOR (TURBT) TRANS URETHRAL RESECT BLADDER TUMOR N/A 01/18/2023 N/A; Blue light cystoscopy and transurethral resection of bladder tumor TRANS URETHRAL RESECT BLADDER TUMOR N/A 12/07/2023 N/A; TRANSURETHRAL RESECTION BLADDER TUMOR (TURBT) Tympanostomy 2013 URETEROSCOPY Left 03/23/2022 Left; URETEROSCOPY URETEROSCOPY Left 12/07/2023 Left; LEFT URETEROSCOPY, LEFT URETERAL BIOPSY FAMILY HISTORY: Family History Problem Relation Name Age of Onset Depression Mother Alcohol abuse Father Depression Sister Thyroid Disease Neg Hx SOCIAL HISTORY: Social History Socioeconomic History Marital status: Single Spouse name: Not on file Number of children: Not on file Years of education: Not on file Highest education level: Not on file Occupational History Not on file Tobacco Use Smoking status: Every Day Packs/day: 1.00 Years: 40.00 Additional pack years: 0.00 Total pack years: 40.00 Types: Cigarettes Smokeless tobacco: Never Vaping Use Vaping Use: Never used Substance and Sexual Activity Alcohol use: No Drug use: Yes Types: Marijuana Comment: either edible or smoke joint 1 time per week Sexual activity: Not on file Other Topics Concern Not on file Social History Narrative 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 Date last employed: 30 years ago Social Determinants of Health Financial Resource Strain: Not on file Food Insecurity: Not on file Transportation Needs: Not on file Stress: Not on file Housing Stability: Not on file MEDICATIONS: No current facility-administered medications for this encounter. Current Outpatient Medications Medication Sig Dispense Refill acetaminophen (TYLENOL) 325 MG tablet Take 2 (two) tablets by mouth every 6 hours as needed for Fever or Pain Maximum allowable Acetaminophen amount = 4 Grams (4000 mg) / 24 hours. 60 tablet 0 albuterol (PROVENTIL;VENTOLIN) (2.5 MG/3ML) 0.083% nebulizer solution Inhale 2.5 (two and one-half)mg by mouth every 4 hours as needed for Shortness of Breath (Patient not taking: Reported on 11/22/2023) 75 mL 0 albuterol HFA (PROAIR HFA) 108 (90 Base) MCG/ACT inhaler Inhale 2 (two) puffs by mouth every 4 hours as needed 8.5 g 11 ascorbic acid (Vitamin C) 500 MG tablet Take 1 (one) tablet by mouth once daily cetirizine (ZYRTEC) 10 MG tablet cetirizine 10 mg tablet TAKE 1 TABLET BY MOUTH ONCE DAILY NEEDED clopidogrel (PLAVIX) 75 MG tablet Take 1 (one) tablet by mouth once daily 90 tablet 0 cromolyn (CROLOM) 4 % ophthalmic solution Instill 1 drop into both eyes 3 times daily 10 mL 4 cyclobenzaprine (Flexeril) 10 MG tablet 1 po tid prn Eliquis 5 MG tablet Take 1 (one) tablet by mouth every 12 hours EPINEPHrine (EPIPEN) 0.3 MG/0.3ML auto-injector pen epinephrine 0.3 mg/0.3 mL injection, auto-injector evolocumab (REPATHA SURECLICK) 140 MG/ML auto-injector INJECT 1 PEN UNDER THE SKIN EVERY 14 DAYS (Patient not taking: Reported on 01/06/2024) 6 mL 4 ezetimibe (ZETIA) 10 MG tablet Take 1 (one) tablet by mouth once daily 90 tablet 4 FLUoxetine (PROzac) 20 MG capsule Take 1 (one) capsule by mouth once daily 90 capsule 1 FLUoxetine (PROzac) 20 MG capsule Take 1 (one) capsule by mouth once daily 30 capsule 1 fluticasone propionate (Flonase) 50 MCG/ACT nasal spray USE 1 SPRAY(S) IN EACH NOSTRIL ONCE DAILY hyoscyamine (Levsin) 0.125 MG IR tablet TAKE 1 TABLET BY MOUTH EVERY 4 HOURS NEEDED FOR SPASMS 30 tablet 0 ibuprofen (MOTRIN) 600 MG tablet Take 1 (one) tablet by mouth every 6 hours as needed (for post operative pain) 30 tablet 0 LORazepam (Ativan) 0.5 MG tablet Take 1 (one) tablet by mouth 3 times daily as needed for Anxiety 90 tablet 1 losartan (COZAAR) 100 MG tablet Take 1 (one) tablet by mouth once daily 90 tablet 4 metFORMIN (GLUCOPHAGE) 500 MG tablet Take 1 (one) tablet by mouth 2 times daily with morning and evening meal metoclopramide (Reglan) 5 MG tablet Take 1 (one) tablet by mouth every 6 hours as needed multivitamin daily tablet Take 1 (one) tablet by mouth daily with food nitroGLYCERIN (NITROSTAT) 0.4 MG tablet Dissolve 1 (one) tablet under the tongue every 5 minutes asneeded for Angina (Patient not taking: Reported on 01/06/2024) 100 tablet 4 ondansetron, disintegrating, (Zofran ODT) 8 MG tablet oxyBUTYnin CR 24hr (Ditropan XL) 15 MG tablet Take 1 (one) tablet by mouth once daily 90 tablet 4 pantoprazole EC (PROTONIX) 40 MG tablet Take 1 (one) tablet by mouth once daily Reasons: need follow up visit for further [phone] option 1 (Patient not taking: Reported on 01/17/2024) 90 tablet 3 sotalol (Betapace) 80 MG tablet Take 1.5 (one and one-half) tablets by mouth every 12 hours Symbicort 160-4.5 MCG/ACT inhaler INHALE 2 PUFFS BY MOUTH TWICE DAILY (Patient not taking: Reportedon 01/06/2024) 10.2 g 0 vitamin D, ergocalciferol, (DRISDOL) 03190 UNITS capsule Take 1 (one) capsule by mouth every 7 days REVIEW OF SYSTEMS: General: +MIRANDA started 2 nights ago Skin: Negative Eyes: Negative Ears/nose/mouth: Negative Lungs: +dry cough, +wheezing started 2 days ago Heart:Negative Gastrointestinal: Negative Genitourinary: left flank dull ache, significant incontinence, some unconscious. Musculoskeletal: Negative Nervous system: Tongue midline, equal smile, CHAUDHRY , equal strength, no slurred speech Reproductive system: Negative Hematologic: Negative Lymphatic: Negative Endocrine: Negative PHYSICAL EXAM: There were no vitals taken for this visit. Constitutional: Appears well, no distress Respiratory: Normal respiratory rate and effort Cardiovascular: RRR Ext: No edema,cyanosis, CHAUDHRY GI: Soft, non-tender, non-distended, : Deferred Laboratory Review: Pertinent labs: Recent Labs Component [...] UA POCT Date Value Ref Range Status 05/05/2024 neg Final Ketones UA POCT Date Value Ref Range Status 05/05/2024 neg Final Specific [place] UA Date Value Ref Range Status 05/05/2024 1.025 Final Nitrite UA Date Value Ref Range Status 05/05/2024 neg Final Mirco: No results for input(s): URINECULT in the last 11835 hours. Pathology: Collected 01/17/2024 08:11 Status: Final result Visible to patient: No (not released) Dx: Other hydronephrosis 0 Result Notes Component Final Diagnosis Bladder, biopsy (A): - Benign urothelial mucosa with submucosal chronic inflammation - Muscularis propria not present Review of Imaging Reports: NM renal scan 04/20/2024 FINDINGS: Blood flow images reveal delayed uptake [...] kidney and 56% for the right kidney. CT UROGRAM Narrative PROCEDURE: CT UROGRAM DATE/TIME OF EXAM: 10/22/2023 10:13 AM CLINICAL INFORMATION: None relevant/not provided if blank. Indication: C67.9: Malignant neoplasm of bladder, unspecified (CMS/HCC) IV CONTRAST: IOPAMIDOL 76 % IV SOLN:[address] UROGRAPHY (CT ABDOMEN AND PELVIS WITHOUT AND WITH CONTRAST) HISTORY: C67.9: Malignant neoplasm of bladder, unspecified (CMS/HCC). Impression 1. An infiltrative bladder mass on [...] is no evidence of free air. DIAGNOSIS: bladder cancer PLAN OF CARE: To OR this day for CYSTOSCOPY, BLADDER BIOPSY NPO for surgery today Surgical abx prophylaxis ordered Patient understands risks and benefits of surgery. Surgical and blood consent obtained and placed in chart. [place] Knutson APRN-BROKER IN CHARGE 06/21/2024 7:49 AM documented in this encounter OR Notes * Brief Op Note - Vivek Scott MD - 06/21/2024 9:51 AM CDT Brief Op Note Procedure: CYSTOSCOPY, BLADDER BIOPSY, CYSTOGRAM Patient Name: Arnold Cruz Date of Service: 06/21/2024 Pre-Op Diagnosis: Malignant neoplasm of urinary bladder, unspecified site (HCC) Post-Op Diagnosis: Malignant neoplasm of urinary bladder Surgeon(s) and Role: * Jose Oliver MD - Primary Wage And Salary Specialist(s): Vivek Scott MD - resident assisting Anesthesia Type: MAC Complications: none Findings: 2 areas of mild bleeding and mild inflammation noted that were biopsied along the right bladder floor and posterior lateral wall, fulgurated. Cystogram did not show reflux at 200 cc. EBL: blood loss of 3 ml Urine Output : unmeasured IV Fluid Intake: unmeasured Drains: * No LDAs found * Specimen(s): ID Type Source Tests Collected by Time Destination A : 1. right floor bladder Biopsy, Excision Soft Tissue, Other PATHOLOGY TISSUE Jose Oliver MD 06/21/2024 1001 B : 2. Right posterior wall Biopsy, Excision Soft Tissue, Other PATHOLOGY TISSUE Jose Oliver MD 06/21/2024 1006 Implant(s): * No implants in log * Vivek Scott MD * Operative - Jose Oliver MD - 06/21/2024 6:55 AM CDT Operative Report NAME: ARNOLD CRUZ : 1960 AGE: 63 PROC DATE: 06/21/2024 SEX: F SURGEON: Jose Oliver MD ATTENDING PHYSICIAN: Jose Oliver MD RESIDENT PHYSICIAN: Vivek Scott MD PREOPERATIVE DIAGNOSES: POSTOPERATIVE DIAGNOSES: PROCEDURE PERFORMED: 1. Cystoscopy. 2. Bladder biopsy and fulguration (0.5 to 2 cm). 3. Cystogram. INDICATIONS FOR PROCEDURE: The patient is a 63-year-old female with a long history of non-muscle invasive bladder cancer since 2021. Most recently, she was undergoing an office cystoscopy for surveillance and was found to have papillary changes involving the right aspect of her bladder. Additionally, she has had previous resection of her left ureter, which has resulted in displacement of the leftureter laterally. She had evidence of flank pain in clinic and there was concern for potential reflux. We discussed a cystogram to rule out reflux as cause of her flank pain. ANESTHESIA: Monitored anesthesia care. COMPLICATIONS: None. IMPLANTS/DRAINS: None. FINDINGS: Small papillary changes with fulguration, negative cystogram. SPECIMEN: 1. Right floor of bladder. 2. Right bladder dome. DESCRIPTION OF PROCEDURE: The patient was properly identified in the preoperative holding area, informed consent was obtained. Once in the operating room, a timeout was performed. Anesthesia was induced and she was given Ancef for perioperative antibiotic. Sequential compression device were on lower extremities. She was put in dorsal lithotomy position. Her genitals were prepped and draped in sterile fashion. We took a 22-C[place] Verdean cystoscope and placed this through the urethra into the bladder. Once in the bladder, the right ureter was in a normal anatomic location, the left ureter was somewhatdisplaced laterally. Both were patent and effluxing clear. On complete cystoscopy, there were several stellate scars on the posterior aspect of the bladder. On the right bladder just proximal to the ureteral orifice, there was some small papillary changes on the right floor of the bladder as well as on the right side of the dome. These were unclear if they were truly have evidence of carcinoma versus cystitis, but they appeared to be low risk. Using cold cup biopsy, we took several biopsies from these two areas and sent them off as separate specimens. We then fulgurated the areas in their entirety. Total area of fulguration was 1 cm at each biopsy site. We then saw no other lesions. Her bladder was drained. We then performed a cystogram. We placed a 16-[place] Verdean catheter with 10 mL of water in the balloon. She was then gravity filled with contrast for 200 mL and max filled. There was no evidence of reflux bilaterally. No perforation. She was then drained and post drainage film was obtained and was normal as well. She was then awoken from anesthesia and taken to post anesthesia care unit in stable condition. I was present entire procedure. 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 Procedure visit [facility] - Urology [address] [place] [address] [address] [place] [id number] Jose Oliver MD [address] [place] [id number] documented as of this encounter Goals Goal [...] Associated Diagnosis Comments [place] CYSTO SURGERY Routine 06/21/2024 9:46 PM CDT Nocturia PATHOLOGY TISSUE Routine 06/21/2024 10:0 1 AM CDT Malignant neoplasm of urinary bladder, unspecified site (HCC) TN URETERAL REFLUX STUDY 06/21/2024 9:03 AM CDT Malignant neoplasm of urinary bladder, unspecified site (HCC) Case Notes Reviewed 06/19 TN CYSTO/URETERO/GEORGES LOSCOPY W/BX 06/21/2024 9:03 AM CDT Malignant neoplasm of urinary bladder, unspecified site (HCC) Case Notes Reviewed 06/19 GLUCOSE - POINT OF CARE Routine 06/21/2024 8:[address] [facility] Routine 06/21/2024 8:07 AM CDT PAD (peripheral artery disease) (HCC) PT-INR [facility] STAT 06/21/2024 8:07 AM CDT PAD (peripheral artery disease) (HCC) documented in this encounter Results * [place] Cysto Surgery (06/21/2024 9:46 PM CDT) Narrative [facility] RADIOLOGY - 06/21/2024 9:46 PM CDT Fluoroscopy was used for this exam in the OR. Please see the Operative report. Jose Oliver MD FLUOROSCOPY KALIN BARBER [facility] RADIOLOGY * PATHOLOGY TISSUE (06/21/2024 10:01 AM CDT) Case Report Surgical Pathology Report ? Case: [id number] ? Authorizing Provider: ??Jose Oliver MD ?Collected: ? 06/21/2024 10:01 AM ? Ordering Location: ? [facility] ?Received: ?06/21/2024 01:25 PM ? Pathologist: ? Nicole Glaser MD ? Specimens: ?? A) - Bladder Biopsy, 1. right floor bladder ? B) - Bladder Biopsy, 2. Right posterior wall ? 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 Ki-67 stains the majority of urothelial cells, including cells at the surface, supporting a diagnosis of carcinoma in situ 06/23/2024 8:22 AM [facility] Clinical History The patient is a 63 year old woman with history of bladder cancer, now with 2 areas of mild bleeding and mild inflammation noted that were biopsied along the right bladder floor and posterior lateral wall. 06/23/2024 8:22 AM [facility] Gross Description The requisition and specimen(s) are identified with the patient's name Arnold Cruz. Received in formalin, specimen A , are 2 pink-hawthorne tissues, 0.3 x 0.2 x 0.2 cm and 0.4 x 0.3 x 0.2 cm, submitted in toto in cassette A1. Received in formalin, specimen B , is a 0.4 x 0.3 x 0.2 cm pink-hawthorne tissue, submitted in toto in cassette B1. DF 06/23/2024 8:22 AM [facility] Pathologist Location at [facility] 06/23/2024 8:22 AM [facility] Disclaimer The performance characteristics of all immunohistochemical and indirect immunofluorescence stains (if any) cited in this report were determined by the Histopathology Laboratory of [facility]. Some of these tests were developed by [...] the attending (teaching) pathologist. 06/23/2024 8:22 AM [facility] Embedded Images 06/23/2024 8:22 AM [facility] Biopsy, Excision URINARY BLADDER [...] - PATHOLOGY/AIDAN MUNOZ ORDERABLES Performing Organization Address City/[facility]/ZIP Co de Phone Number [facility] LAB [address] [place] [address], [facility] [phone] * (ABNORMAL) GLUCOSE - POINT OF CARE (06/21/2024 8:10 AM CDT) Glucose WB/POC 149(H) 70 - 115 mg/dL 06/21/2024 8:[address] [facility] Specimen Type Venous 06/21/2024 8:[address] [facility] Blood BLOOD SPECIMEN / Unknown 06/21/2024 8:10 AM CDT 06/21/2024 8:47 AM CDT Jose Oliver MD LAB - POINT OF CAR E ORDERABLES Performing Organization Address [facility] Co de Phone Number [address] [address], [facility] [phone] * PTT [facility] (06/21/2024 8:07 AM CDT) APTT 26.7 23.0 - 38.4 Seconds 06/21/2024 8:[address] [facility] Comment:Suggested therapeuti c range for full dose I.V. unfractionated heparin therapy for venous thromboembolism is 71 to 109 seconds. Blood BLOOD SPECIMEN / Unknown Venipuncture / Unknown 06/21/2024 8:07 AM CDT 06/21/2024 8:09 AM CDT Jose Oliver MD LAB - COAGULATION ORDERABLES Performing Organization Address City/[facility]/ZIP Co de Phone Number [facility] [address] [place] [address], [place] [phone] * PT-INR [facility] (06/21/2024 8:07 AM CDT) PT 12.7 12.1 - 14.8 Seconds 06/21/2024 8:35 AM CDT [facility] INR 1.0 See Comment 06/21/2024 8:35 AM CDT [facility] Comment:The suggested therap eutic range for standard coumadin (warfarin) therapy is an INR of 2.0-3.0. For high-risk patients (Mechanical Mitral Valve Prosthesis, etc.), the suggested prophylactic therapeutic range is an INR of 2.5-3.5. Blood BLOOD SPECIMEN / Unknown Venipuncture / Unknown 06/21/2024 8:07 AM CDT 06/21/2024 8:09 AM CDT Jose Oliver MD LAB - COAGULATION ORDERABLES [facility] [address] [place] [address], [facility] [phone] documented in this encounter Visit Diagnoses Diagnosis PAD (peripheral artery disease) (HCC)- Primary Unspecified disorders of arteries and arterioles CAD in poarch artery Coronary atherosclerosis of poarch coronary artery Nocturia Malignant neoplasm of urinary bladder, unspecified site (HCC) documented in this encounter Administered Medications Inactive Administered Medications - up to 3 most recent administrations Medication Order MAR Action Action Date Dose Rate Site 0.9% NaCl injection 1-10 mL 1-10 mL, Intracatheter, PRN, Other, peripheral line flush, Starting on Wed06/21/24 at 0750, Until Wed06/28/24 at 1413, Flush peripheral IV catheter with 1-10 mL of normal saline before and after medications and prn to clear blood from the line or to verify patency., Pre-op 0.9% NaCl injection 3 mL 3 mL, Intracatheter, EVERY 8 HOURS, First dose on Wed06/21/24 at 0800, Until Discontinued, Flush peripheral IV catheter with 3 mL of normal saline every 8 hours., Pre-op acetaminophen (Tylenol) tablet 1,000 mg 1,000 mg, Oral, PRE-OP ONCE, 1 dose, On Wed06/21/24 at 0800, Patient preference for lesser PRN pain meds may be honored when the patient requests a less strong medication, a lower dose, or a less intrusive route of administration when the lesser drug, dose and route have been ordered for the patient. This patient request must be documented in the MAR. If both oral and IV options are ordered for the same pain severity, give oral first unless patient cannot tolerate oral intake, Pre-op $ Given 06/21/2024 8:28 AM CDT 1,000 mg albuterol-ipratropium (Duo-Neb) nebulizer solution 3 mL 3 mL, Inhalation, ONCE, 1 dose, On Wed06/21/24 at 0815 $ Given 06/21/2024 8:20 AM CDT 3 mL insulin regular human 1 unit/mL injection 0-6 Units, Intravenous, PRN, preop corrective insulin, 2 doses, Starting on Wed06/21/24 at 0750, Until Wed06/28/24 at 1413, POC Glucose Regular Insulin Dose 0 - 150 mg/dL = 0 units 151 - 180 mg/dL = 2 units 181 - 220 mg/dL = 3 units 221 - 260 mg/dL = 4 units 261 - 300 mg/dL = 5 units Above 300 mg/dL = 6 units Recheck blood glucose 30-60 minutes after administration and repeat dose per above sliding scale if necessary. Contact anesthesia if a second dose is administered Use prefilled syringe. For non 24 hour pharmacies: Withdraw 5-10mL from insulin bag based on Epic order with dispensing pin and luer lock syringe then admin IVP over 1 minute., Pre-op iohexol (Omnipaque 300) contrast PRN, Starting on Wed06/21/24 at 1010, Until Wed06/28/24 at 1413, Intra-op $ Given 06/21/2024 10:10 AM CDT 30 mL Bladder Wall lactated ringers infusion at 75 mL/hr, Intravenous, CONTINUOUS, Starting on Wed06/21/24 at 0800, Until Wed06/28/24 at 1413, Pre-op Restarted 06/21/2024 9:32 AM CDT $ New Bag/Syringe 06/21/2024 8:28 AM CDT 75 mL/ hr oxyCODONE (immediate release) (Roxicodone) tablet 5 mg 5 mg, Oral, EVERY 6 HOURS PRN, Moderate Pain, Severe Pain, Starting on Wed06/21/24 at 1042, Until Wed06/28/24 at 1413, Patient preference for lesser PRN pain meds may be honored when the patient requests a less strong medication, a lower dose, or a less intrusive route of administration when the lesser drug, dose and route have been ordered for the patient. This patient request must be documented in the MAR. If both oral and IV options are ordered for the same pain severity, give oral first unless patient cannot tolerate oral intake $ Given 06/21/2024 10:57 AM CDT 5 mg documented in this encounter Active and Recently Administered Medications Times are shown in CDT. Scheduled Medication Order 06/19/2024 06/20/2024 06/21/2024 0.9% NaCl injection 3 mL(Linked Group 1) 3 mL, Intracatheter, EVERY 8 HOURS, First dose on Wed06/21/24 at 0800, Until Discontinued, Flush peripheral IV catheter with 3 mL of normal saline every 8 hours., Pre-op 0800 (Due) acetaminophen (Tylenol) tablet 1,000 mg (COMPLETED) 1,000 mg, Oral, PRE-OP ONCE, 1 dose, On Wed06/21/24 at 0800, Patient preference for lesser PRN pain meds may be honored when the patient requests a less strong medication, a lower dose, or a less intrusive route of administration when the lesser drug, dose and route have been ordered for the patient. This patient request must be documented in the MAR. If both oral and IV options are ordered for the same pain severity, give oral first unless patient cannot tolerate oral intake, Pre-op 0828 ($ Given - Prov ider: Estrella Cervantes RN) albuterol-ipratropium (Duo-Neb) nebulizer solution 3 mL (COMPLETED) 3 mL, Inhalation, ONCE, 1 dose, On Wed06/21/24 at 0815 0820 ($ Given - Prov ider: Deisi Cadet RCP) ceFAZolin (Ancef) 2 g in 0.9% NaCl IV 50 mL IVPB (COMPLETED) 2 g, at 100 mL/hr, Intravenous, PRE-OP ONCE, 1 dose, On Wed06/21/24 at 0800, Administer 30 minutes prior to surgical incision., Indication for anti-infective therapy: Surgical prophylaxis, Pre-op 0942 ($ New Bag/Syri nge - Provider: LOW Mauricio) Continuous Medication Order 06/19/2024 06/20/2024 06/21/2024 lactated ringers infusion at 75 mL/hr, Intravenous, CONTINUOUS, Starting on Wed06/21/24 at 0800, Until Wed06/28/24 at 1413, Pre-op 0828 ($ New Bag/Syri nge - Provider: Estrella Cervantes RN)0931 (Paused - Provider: LOW Mauricio - Comment: Switch to gravity)0932 (Restarted - Provider: LOW Mauricio)1016 (Anesthesia Volume Adjustment - Provider: LOW Mauricio) PRN Medication Order 06/19/2024 06/20/2024 06/21/2024 0.9% NaCl injection 1-10 mL(Linked Group 1) 1-10 mL, Intracatheter, PRN, Other, peripheral line flush, Starting on Wed06/21/24 at 0750, Until Wed06/28/24 at 1413, Flush peripheral IV catheter with 1-10 mL of normal saline before and after medications and prn to clear blood from the line or to verify patency., Pre-op insulin regular human 1 unit/mL injection 0-6 Units, Intravenous, PRN, preop corrective insulin, 2 doses, Starting on Wed06/21/24 at 0750, Until Wed06/28/24 at 1413, POC Glucose Regular Insulin Dose 0 - 150 mg/dL = 0 units 151 - 180 mg/dL = 2 units 181 - 220 mg/dL = 3 units 221 - 260 mg/dL = 4 units 261 - 300 mg/dL = 5 units Above 300 mg/dL = 6 units Recheck blood glucose 30-60 minutes after administration and repeat dose per above sliding scale if necessary. Contact anesthesia if a second dose is administered Use prefilled syringe. For non 24 hour pharmacies: Withdraw 5-10mL from insulin bag based on Epic order with dispensing pin and luer lock syringe then admin IVP over 1 minute., Pre-op iohexol (Omnipaque 300) contrast PRN, Starting on Wed06/21/24 at 1010, Until Wed06/28/24 at 1413, Intra-op 1010 ($ Given - Prov ider: Jose Oliver MD - Comment: mixed with 200 ml sterile water) oxyCODONE (immediate release) (Roxicodone) tablet 5 mg 5 mg, Oral, EVERY 6 HOURS PRN, Moderate Pain, Severe Pain, Starting on Wed06/21/24 at 1042, Until Wed06/28/24 at 1413, Patient preference for lesser PRN pain meds may be honored when the patient requests a less strong medication, a lower dose, or a less intrusive route of administration when the lesser drug, dose and route have been ordered for the patient. This patient request must be documented in the MAR. If both oral and IV options are ordered for the same pain severity, give oral first unless patient cannot tolerate oral intake 1057 ($ Given - Prov ider: Estrella Cervantes RN) Linked Groups Order Group 1: SALINE LOCK, INSERT AND MAINTAIN (CANCELED) Routine, CONTINUOUS, Starting on Wed06/21/24 at 0800, Until Specified, Pre-op, New collection And 0.9% NaCl injection 3 mLJump to med 3 mL, Intracatheter, EVERY 8 HOURS, First dose on Wed06/21/24 at 0800, Until Discontinued, Flush peripheral IV catheter with 3 mL of normal saline every 8 hours., Pre-op And 0.9% NaCl injection 1-10 mLJump to med 1-10 mL, Intracatheter, PRN, Other, peripheral line flush, Starting on Wed06/21/24 at 0750, Until Wed06/28/24 at 1413, Flush peripheral IV catheter with 1-10 mL of normal saline before and after medications and prn to clear blood from the line or to verify patency., Pre-op documented in this encounter Care Teams Urology Physician Relationship Specialty Start Date End Date Deisi Andrews MD [address] [place] [address] [place] [address] PCP - General Family Medicine 05/26/23 10/26/24 documented as of this encounter
--- OUTSIDE RECORDS SUMMARY | 2024-11-12 04:42 | XMS_ITS | Encounter Summary ---
Author Organization [facility] Address [address] [place] [address] Care Team Providers Care Manufacturing Technician Name Role Phone Deisi Andrews MD Primary Care Provider [phone] Encounter Details Date Type Department Care Team (Latest Contact Info) Description 06/19/2024 Travel Social History Tobacco Use Types Packs/Day [...] st Contact Info) Description 01/19/2025 11:30 AM ROUGHER HELPER Procedure visit [facility] - Urology [address] [place] [address] Jose Oliver MD [address] [facility] [address] [facility] [place] [address] documented as of this encounter Goals Goal [...] on filedocumented in this encounter Care Teams Manufacturing Technician Relationship Specialty Start Date End Date Deisi Andrews MD [address] [place] [address] [place] [address] PCP - General Family Medicine 05/26/23 10/26/24 documented as of this encounter
--- OUTSIDE RECORDS SUMMARY | 2024-11-12 04:42 | XMS_ITS | Encounter Summary ---
Author Organization [facility] Address [address] [facility] [place] [address] Care Team Providers Care Sap Portal Architect Name Role Phone Deisi Andrews MD Primary Care Provider [phone] Encounter Details Date Type Department Care Team (Latest Contact Info) Description 11/22/2023 9:27 AM MOLD 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 - 11/22/2023 9:59 AM [facility] Hospital Encounter [facility] [address] [place] [phone] Jose Oliver MD [address] [facility] [address] [facility] [place] [phone] Urology Discharge Disposition: Home or Self Care Anesthesia Record Procedure Summary Procedure Name Responsible Anesthesiologist Anesthesia Start Time Anesthesia Stop Time TRANSURETHRAL RESECTION BLADDER TUMOR (TURBT) (Bladder) Alicja Weaver MD 12/07/23 0725 12/07/23 0828 Events Date Time Event Comment 12/07/2023 0700 0725 An Start 0726 Pt In Room 0728 An Start Data 0731 PT Reassessment 0734 Induction 0737 An LMA 0738 Anes Ready 0745 Time Out Anesthesia part icipated in timeout at the time documented in the record by nursing 0745 Proc Start 0815 Proc Stop 0815 An Emergence 0815 An LMA Removed 0822 an stop data 0823 Pt out of Room 0823 ANPTO2 0828 An Stop Meds * Agents No agents on file. * Blood No blood administrations on file. Lines, Drains, and Airways Type Details Placement Removal Peripheral IV Date: 12/07/23; Time : 627; Orientation: Posterior, Right; Placed By: ladarius Romero 12/07/23 0628 by Katt Torres, ADONAY 12/07/23 1111 by Katt Torres, RN LMA 12/07/23; 0737 (created via procedure documentation); Flavia Orourke; 100% O2; Standard IV; mask not attempted; LMA; 3.0; Bilateral breath sounds, Chest Auscultation, CO2 Detector; 12/07/23; 0815 12/07/23 0737 by Jr. Jamey Rodriguez Anes Asst 12/07/23 0815 by Jr. Jamey Rodriguez Anes Asst Procedural Site (Incision) 12/07/23; 0752; Vagina; dressing not applicale; 12/07/23; 1720 12/07/23 0752 by Carol Michael RN 12/07/23 1720 by Generic, Auto Release documented in this encounter Social History Tobacco Use Types Packs/Day Years Used Date Smoking Tobacco: Every Day Cigarettes 0.3 40 Smokeless Tobacco: Never Tobacco Cessation:Ready to [...] Sign Reading Time Taken Comments Blood Pressure 128/80 11/22/2023 9:27 AM MOLD 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 Pulse 79 11/22/2023 9:27 AM MOLD 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 Temperature 37.1 ??C (98.8 ??F) 11/22/2023 9:27 AM CS T Respiratory Rate 18 11/22/2023 9:27 AM MOLD 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 Oxygen Saturation 93% 11/22/2023 9:27 AM MOLD 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 Inhaled Oxygen Concentration - - Weight 83.9 kg (184 lb 14.4 oz) 11/22/2023 9:27 AM MOLD 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 Height 160 cm (5' 3 ) 11/22/2023 9:27 AM MOLD 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 Body Mass Index 32.75 11/22/2023 9:27 AM MOLD 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 documented in this encounter Functional Status Functional [...] No 01/18/2023 documented as of this encounter Medications at Time of Discharge Medication Sig Dispensed Refills Start Date End Date albuterol (PROVENTIL;VENTOLIN) (2.5 MG/3ML) 0.083% nebulizer solution Inhale 2.5 (two and one-half) mg by mouth every 4 hours as needed for Shortness of Breath 75 mL 11/03/2021 albuterol HFA (PROAIR HFA) 108 (90 Base) MCG/ACT inhalerIndications:Sta ge 2 moderate COPD by GOLD classification ([facility]) Inhale 2 (two) puffs by [...] 1 SPRAY(S) IN EACH NOSTRIL ONCE DAILY ibuprofen (MOTRIN) 600 MG tablet Take 1 [...] 12 hours 10/28/2023 vitamin D, ergocalciferol, (DRISDOL) 85902 UNITS capsule Take 1 (one) capsule by [...] once daily 30 capsule 1 11/19/2023 01/17/2024 hyoscyamine (Levsin) 0.125 MG IR tablet Take 1 (one) tablet by mouth every 4 hours as needed for Spasms 30 tablet 10/22/2023 11/30/2023 LORazepam (Ativan) 0.5 MG tablet Take 1 (one) tablet by mouth 3 times daily for 30 days 90 tablet 11/19/2023 12/16/2023 oxyBUTYnin CR 24hr (Ditropan XL) 15 MG tabletIndications:Anastasiya gnant neoplasm of urinary bladder, unspecified site ([facility]),Bladder spasms,Urinary frequency Take 1 (one) tablet by mouth once daily 90 tablet 4 11/01/2023 09/01/2024 oxyCODONE, immediate release, (Roxicodone) 5 MG tabletIndications:Anastasiya gnant neoplasm of urinary bladder, unspecified site ([facility]) Take 1 (one) tablet by mouth every 6 hours as needed for Pain 6 tablet 12/07/2023 01/06/2024 pantoprazole EC (PROTONIX) 40 MG tabletIndications:need follow up visit for further [phone] option 1 Take 1 (one) tablet by mouth once daily Reasons: need follow up visit for further [phone] option 1 90 tablet 3 01/23/2022 06/15/2024 Symbicort 160-4.5 MCG/ACT inhalerIndications:Sta ge 2 moderate COPD by GOLD classification ([facility]) INHALE 2 PUFFS BY MOUTH TWICE DAILY 10.2 g 07/07/2023 06/15/2024 traZODone (Desyrel) 50 MG tablet Take 1 (one) tablet by mouth nightly as needed For insomnia. 30 tablet 1 11/19/2023 01/06/2024 documented as of this encounter Plan of Treatment Upcoming Encounters Date Type Department Care Team (Late st Contact Info) Description 01/19/2025 11:30 AM MOLD 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 Procedure visit [facility] - Urology [address] [place] [address] [address] [place] [phone] Jose Oliver MD [address] [place] [address] documented as of this encounter Goals Goal [...] last dose documented as of this encounter Results * (ABNORMAL) HEMOGLOBIN A1C [IN-HOUSE TEST] (11/22/2023 10:36 AM [facility]) Hemoglobin A1c 6.4(H) <=5.6 % 11/22/2023 12:05 PM [facility] Estimated Average Glucose 137 mg/dL 11/22/2023 12:05 PM [facility] Comment: HbA1c Interpretation: Normal : < 5.7% Pre-diabetes: 5.7-6.4% Diabetes: Equal to or greater than 6.5% Test results diagnostic of diabetes should be repeated for confirmation. Treatment target values recommended by ADA and other clinical organizations should be used to evaluate metabolic control in patients. Reference: [place] [employer], Standards of Care in Diabetes -2020 In patients 70 years and older consider HbA1c target range of 7.0-7.5% (Reference: Montez Rosas et al. JAMDA. 2012) The Sebia assay for the measurement of HbA1c is a National Glycohemoglobin Standardization Program (NGSP) certified method. Blood BLOOD SPECIMEN WITH EDTA / Unknown Lab Venipuncture / Unknown 11/22/2023 10:36 AM MOLD 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 11/22/2023 10:42 AM [facility] Jasmin Moore BOILER OPERATORS SUPERVISOR-STORE OPERATIONS MANAGER LAB - CHEMISTRY ORDERABLES [address] [address], [facility] [phone] * CBC W/O DIFFERENTIAL (11/22/2023 10:36 AM [facility]) WBC 9.9 4.0 - 10.7 x10E9/L 11/22/2023 10:54 AM [facility] RBC Count 4.94 3.90 - 5.20 x10E12/L 11/22/2023 10:54 AM [facility] Hemoglobin 13.6 11.9 - 15.8 g/dL 11/22/2023 10:54 AM [facility] Hematocrit 40.8 34.8 - 46.1 % 11/22/2023 10:54 AM [facility] MCV 82.6 80.0 - 98.0 fL 11/22/2023 10:54 AM [facility] MCH 27.5 26.7 - 33.6 pg 11/22/2023 10:54 AM [facility] MCHC 33.3 31.7 - 36.3 g/dL 11/22/2023 10:54 AM [facility] RDW-CV 14.1 11.3 - 14.8 % 11/22/2023 10:54 AM [facility] Platelet Count 260 150 - 420 x10E9/L 11/22/2023 10:54 AM [facility] MPV 10.1 7.8 - 11.4 fL 11/22/2023 10:54 AM [facility] Blood BLOOD SPECIMEN / Unknown Lab Venipuncture / Unknown 11/22/2023 10:36 AM [facility] 11/22/2023 10:42 AM [facility] Jasmin Moore BOILER OPERATORS SUPERVISOR-STORE OPERATIONS MANAGER LAB - HEMATOLOGY ORDERABLES Performing Organization Address [facility]/State/[facility] Co de Phone Number [facility] [address] [place] [address] [phone] * (ABNORMAL) BASIC METABOLIC PANEL (CALCIUM TOTAL) (11/22/2023 10:36 AM [facility]) BUN 25 7 - 26 mg/dL 11/22/2023 11:14 AM [facility] Creatinine 0.72 0.56 - 0.96 mg/dL 11/22/2023 11:14 AM [facility] Sodium 141 136 - 145 mmol/L 11/22/2023 11:14 AM [facility] Potassium 4.3 3.5 - 4.5 mmol/L 11/22/2023 11:14 AM [facility] Chloride 107 98 - 107 mmol/L 11/22/2023 11:14 AM [facility] CO2 25 22 - 29 mmol/L 11/22/2023 11:14 AM [facility] Glucose 126(H) 70 - 115 mg/dL 11/22/2023 11:14 AM [facility] Calcium 9.1 8.4 - 10.2 mg/dL 11/22/2023 11:14 AM [facility] Anion Gap 9 6 - 16 11/22/2023 11:14 AM [facility] BUN/Creatinine Ratio 35(H) 7 - 23 11/22/2023 11:14 AM [facility] Osmolality Calculated 298(H) 275 - 295 mOsm/kg 11/22/2023 11:14 AM [facility] eGFR by CKD-EPI >90 >=90 mL/min/1.7 3 m2 11/22/2023 11:14 AM [facility] Blood BLOOD SPECIMEN / Unknown Lab Venipuncture / Unknown 11/22/2023 10:36 AM MOLD 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 11/22/2023 10:43 AM [facility] Jasmin Moore BOILER OPERATORS SUPERVISOR-STORE OPERATIONS MANAGER LAB - CHEMISTRY ORDERABLES [facility] [address] [place] [address] [phone] documented in this encounter Visit Diagnoses Diagnosis Pre-op exam- Primary Preoperative examination, unspecified documented in this encounter Care Teams Sap Portal Architect Relationship Specialty Start Date End Date Deisi Andrews MD [address] [place] [address] PCP - General Family Medicine 05/26/23 10/26/24 documented as of this encounter
--- OUTSIDE RECORDS SUMMARY | 2024-11-12 04:42 | XMS_ITS | Encounter Summary ---
Author Organization [facility] Address [address] [place] [address] Care Team Providers Care Clocksmith Name Role Phone Deisi Andrwes MD Primary Care Provider [phone] Encounter Details Date Type Department Care Team (Latest Contact Info) Description 11/22/2023 10:00 AM [employer] RENTAL CLERK - 11/22/2023 11:59 PM [facility] Hospital Encounter [facility] [address] [place] [phone] Jose Oliver MD [address] OF [place] [phone] Discharge Disposition: Home or Self Care Social [...] 12 hours 10/28/2023 vitamin D, ergocalciferol, (DRISDOL) 82459 UNITS capsule Take 1 (one) capsule by [...] oxyCODONE, immediate release, (Roxicodone) 5 MG tabletIndications:Anastasiya galicia neoplasm of urinary bladder, unspecified site (HCC) Take 1 (one) tablet by mouth every 6 hours as needed for Pain 6 tablet 12/07/2023 01/06/2024 pantoprazole EC (PROTONIX) 40 MG tabletIndications:need follow up visit for further [id number] option 1 Take 1 (one) tablet by mouth once daily Reasons: need follow up visit for further [phone] option 1 90 tablet 3 01/23/2022 06/15/2024 Symbicort 160-4.5 MCG/ACT inhalerIndications:Sta ge 2 moderate COPD by GOLD classification ([facility]) INHALE 2 PUFFS BY MOUTH TWICE DAILY 10.2 g 07/07/2023 06/15/2024 traZODone (Desyrel) 50 MG tablet Take 1 (one) tablet by mouth nightly as needed For insomnia. 30 tablet 1 11/19/2023 01/06/2024 documented as of this encounter Plan of Treatment Upcoming Encounters Date Type Department Care Team (Late st Contact Info) Description 01/19/2025 11:30 AM [employer] DE[employer]IT B[employer] RENTAL CLERK Procedure visit [facility] - Urology [address] [place] [address] [address] [place] [address] Jose Oliver MD [address] OF [place]OLOGIC [place] [phone] documented as of this encounter Goals Goal [...] Procedure Name Priority Date/Time Associated Diagnosis Comments HEMOGLOBIN A1C Routine 11/22/2023 10:36 AM S[employer]E DE[employer]IT BOX RENTAL CLERK Pre-op exam CBC W/O DIFFERENTIAL Routine 11/22/2023 10:36 AM [employer] DE[employer] BOX RENTAL CLERK Pre-op exam BASIC METABOLIC PANEL (CALCIUM TOTAL) Routine 11/22/2023 10:36 AM S[employer] DE[employer]IT BOX RENTAL CLERK Pre-op exam documented in this encounter Results * (ABNORMAL) HEMOGLOBIN A1C [IN-HOUSE TEST] (11/22/2023 10:36 AM SAFE DEPOSIT BOX RENTAL CLERK) Hemoglobin A1c 6.4(H) <=5.6 % 11/22/2023 12:05 PM [facility] Estimated Average Glucose 137 mg/dL 11/22/2023 12:05 PM [facility] Comment: HbA1c Interpretation: Normal : < 5.7% Pre-diabetes: 5.7-6.4% Diabetes: Equal to or greater than 6.5% Test results diagnostic of diabetes should be repeated for confirmation. Treatment target values recommended by ADA and other clinical organizations should be used to evaluate metabolic control in patients. Reference: [place] [employer], Standards of Care in Diabetes -2020 In patients 70 years and older consider HbA1c target range of 7.0-7.5% (Reference: Montez Rosas et al. JAMDA. 2012) The Sebia assay for the measurement of HbA1c is a National Glycohemoglobin Standardization Program (NGSP) certified method. Blood BLOOD SPECIMEN WITH EDTA / Unknown Lab Venipuncture / Unknown 11/22/2023 10:36 AM S[employer]E DEPOSIT BOX RENTAL CLERK 11/22/2023 10:42 AM SAFE DEPOSIT BOX RENTAL CLERK Jasmin Moore [employer] [facility] - CHEMISTRY ORDERABLES [facility] [address] [place] [id number], [facility] [phone] * CBC W/O DIFFERENTIAL (11/22/2023 10:36 AM SAFE DE[employer]IT BOX RENTAL CLERK) WBC 9.9 4.0 - 10.7 x10E9/L 11/22/2023 [...] Lab Venipuncture / Unknown 11/22/2023 10:36 AM [facility] 11/22/2023 10:42 AM [facility] Jasmin Moore [employer] [facility] - HEMATOLOGY ORDERABLES Performing Organization Address [facility]/State/[facility] Co de Phone Number [facility] [address] [place] [address], [facility] [phone] * (ABNORMAL) BASIC METABOLIC PANEL (CALCIUM TOTAL) (11/22/2023 10:36 AM [facility]) BUN 25 7 - 26 mg/dL 11/22/2023 [...] Lab Venipuncture / Unknown 11/22/2023 10:36 AM S[employer] DE[employer]IT BOX RENTAL CLERK 11/22/2023 10:43 AM [facility] Jasmin Moore [employer] [facility] - CHEMISTRY ORDERABLES Performing Organization Address City/State/[facility] Co de Phone Number [facility] [address] [place] [address], [facility] [phone] documented in this encounter Visit Diagnoses Diagnosis Pre-op exam Preoperative examination, unspecified documented in this encounter Care Teams Clocksmith Relationship Specialty Start Date End Date Deisi Andrews MD [address] [place] [phone] PCP - General Family Medicine 05/26/23 10/26/24 documented as of this encounter
--- OUTSIDE RECORDS SUMMARY | 2024-11-12 04:42 | XMS_ITS | Encounter Summary ---
Author Organization [facility] Address [address] [facility] [place] [address] Care Team Providers Care Manager Loss Prevention Name Role Phone Deisi Andrews MD Primary Care Provider Reason for Visit * Auth/Cert (Routine) Specialty Diagnoses / Procedures Referred By Nacho brooks Referred To Contact Diagnoses Malignant neoplasm of urinary bladder, unspecified site (HCC) Malignant neoplasm of urinary bladder, unspecified site Procedures NM CYSTOURETHROSCOPY,FULGUR 2-5CM LESN NM CYSTOURETHROSCOPY,URETER CATHETER NM CYSTOSCOPY,INSERT URETERAL STENT TRANSURETHRAL RESECTION BLADDER TUMOR (TURBT) CYSTOSCOPY WITH RETROGRADE PYELOGRAM CYSTOSCOPY WITH INSERTION URETERAL STENT Referral ID Status Reason Start Date Expiration Date Visits Re quested Visits Authorized [id number] 1 1 Encounter Details Date Type Department Care Team (Late Contact Info) Description 12/07/2023 7:[address] MONITOR Anesthesia Event [facility] [address] [place] [address] Alicja Weaver MD [address] [facility] OF [place] [address] Jasmin Moore, SUPERVISOR QUALITY CONTROL-HAZMAT TRUCK DRIVER [address] [place] [address] Anesthesia Record Procedure Summary Procedure Name Responsible [...] Room 0823 ANPTO2 0828 An Stop Meds Name Total ceFAZolin 2,000 mg IVPB 2 g midazolam 2 mg/2mL injection 2 mg fentaNYL 100 mcg/2ml injection 150 mcg lidocaine PF 2% 100 mg propofol 200mg/20mL injection 150 mg dexamethasone 10 mg/ml PF injection 4 mg ondansetron 4mg/2mL injection 4 mg LR (Lactated ringers) 500 mL * Agents Name Insp. N2O Exp. Sevoflurane Exp. N2O O2 Insp. Sevoflurane * Blood No blood [...] 12/07/23; 0815 12/07/23 0737 by Jr. Jamey oRdriguez Anes Asst 12/07/23 0815 by Jr. Jamey [...] No 01/18/2023 documented as of this encounter Progress Notes * Alicja Weaver MD - 12/07/2023 8:30 AM CST ANESTHESIA POSTOP EVALUATION NOTE Procedure: TRANSURETHRAL RESECTION BLADDER TUMOR (TURBT) (Bladder) LEFT RETROGRADE PYELOGRAM (Left) LEFT URETEROSCOPY, LEFT URETERAL BIOPSY (Left) Rody Zaidi is a 62 year old female Patient Vitals for the past 6 hrs: BP Temp Pulse Resp SpO2 Pain Rating Score #1 Pain Scale/Observation Pulse - (SPO2/Cuff) 12/07/23 0622 121/90 -- 73 12 96 % -- -- 74 bpm 12/07/2325 -- 98.2 ??F (36.8 ??C) -- -- -- 7 N -- 12/07/23 0630 115/71 -- 73 20 94 % -- -- 75 bpm 12/07/23 0645 99/58 -- 69 23 94 % -- -- 70 bpm 12/07/23 0700 94/76 -- 70 13 93 % -- -- 70 bpm 12/07/23 0715 107/53 -- 71 19 94 % -- -- 75 bpm Anesthesia Type: general LMA Pre-op Diagnosis Codes: * Malignant neoplasm of urinary bladder, unspecified site (CMS-HCC) [C67.9] Mental Status: awake, alert and oriented Neuro Status: No numbness, tingling or visual disturbances Respiratory Function: natural Cardiac Function: stable Postop Pain: acceptable to the patient Postop Hydration: adequate Postop Nausea: none Assessment: no apparent anesthetic complications, patient tolerated procedure well and no evidence of recall Patient Disposition: Release from Anesthesia Care NOTABLE EVENTS: No notable events documented. T MONITOR * Alicja Weaver MD - 11/22/2023 9:28 AM CST Images from the original note were not included. ANESTHESIA PREOPERATIVE EVALUATION NOTE Procedure: TRANSURETHRAL RESECTION BLADDER TUMOR (TURBT) (Bladder) LEFT RETROGRADE PYELOGRAM (Left) URETERAL STENT PLACEMENT (Left) Vitals: Patient Vitals for the past 6 hrs: BP Temp Pulse Resp SpO2 11/22/23 0927 128/80 98.8 ??F (37.1 ??C) 79 18 93 % LMP: No LMP recorded. Patient is postmenopausal. OB Status: Postmenopausal ANESTHESIA PRE-EVALUATION NOTE History of Present Illness: 62 year old female with history of 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 She is scheduled for transurethral resection bladder tumor (TURBT), left retrograde pyelogram and ureteral stent placement with Dr. Oliver. Medical history is significant for MDD, GIOVANNY, NIDDM (Type 2; not currently checking glucose at home), HTN, mild hypertrophic heart disease (EF 60-65% grade I diastolic dysfunction, no significant valvular disease per 2022 TTE), Paroxysmal A-fib- clinically stable in sinus rhythm (Eliquis), sepsis C-diff (08/2023) c/b A-fib and elevated troponin, nonobstructive CAD per 2019 cardiac cath (medical management), HLD, DJD, COPD, asthma (albuterol 1x/day at baseline), carpal tunnel syndrome, TIA 2013, GERD (well controlled), CATHERINE (no CPAP due to intolerance), PVD s/p peripheral revascularization on Plavix (08/2023), carotid stenosis s/p L carotid endarterectomy Allergies- Penicillins, Bee Venom, Azithromycin; Risperidone; Statins (Hmg-coa-r Inhibitors); Codeine; Penicillin G; Triazolam, Haloperidol The patient is a current smoker (4 cigarettes/day; marijuana weekly). The patient was instructed toabstain from smoking on day of procedure. Physical Exam: Orientation X3 Airway/Mallampati Score: IV Mouth Opening Distance: 2 fingerwidths (very small mouth opening) Neck ROM: full TM Distance: > 3 FB Teeth: dentures/partials upper and edentulous Heart: normal - S1 S2 Lungs: other - comments (coarse throughout) Abdomen Exam: obese Review of Systems: History of anesthetic complications: [...] imaging is normal. Recommend follow up with grievance manager. 12/31/21 TTE Findings consistent with mild effects [...] Status: No solids since midnight Anesthesia Plan: general Planned Induction: intravenous Planned Postop Destination: PACU Anesthetic plan was discussed with: patient Anesthetic Plan discussion was: Consented The patient's procedural Anesthetic Plan was discussed with the office services assistant. This evaluation was based on PAT clinic [...] as further workup may beindicated. II. Consults: YES - cardiology (requested per surgeon's office and available for review in [place] 12/15/23) III. CIEDs: Does patient have a CIED (cardiovascular implantable electronic device eg: PM, AICD)? no IV. Anticoagulants: Are they receiving antiplatelet/anticoagulant medications (besides ASA)? What is the periop plan? Plavix hold 5 days, Eliquis hold [address] Lowt (cardiology) V. Previous blood transfusion? no VII. Known CATHERINE or STOP-BANG> 5: yes Snoring, Tired, Observed apnea, high blood Pressure, BMI>35, Age>50, Neck circumference>18 VIII. Known or suspected difficult airway no IX. Frailty screen: No data recorded X. Suboxone (Buprenorphine / Naloxone) therapy? N/A GLP-1 Agonists No XI. Most recent EK11/19/23 Sinus rhythm 83 bpm (paper chart) XI. Additional testing needed within 3 months [...] ordered today including PAT and surgeon orders: CBC, BMP, UCx and HgA1c Labs/tests ordered or in need of review on DOS: POC glucose Summary: Rody Zaidi is a 62 year old female presenting for TRANSURETHRAL RESECTION BLADDER TUMOR (TURBT) (Bladder) LEFT RETROGRADE PYELOGRAM (Left) URETERAL STENT PLACEMENT (Left). They have an ASA score of 3 and a RCRI / MACE score of 1 Point >= 0.9% Follow up results - have ALL the above ordered labs and vital signs been reviewed? YES - results are grossly WNL for this patient They ARE OPTIMIZED - PAT EVALUATION COMPLETE Jasmin Moore, MEI-HAZMAT TRUCK DRIVER 11/22/2023 11:57 AM for this procedure. Preoperative plan was not discussed with PAT attending, preoperative plan and physical exam will bediscussed with attending in holding area. Final clearance pending evaluation by the attending Anesthesiologist on the day of surgery. End of PAT Evaluation: BMI, Height, Weight Tobacco History Estimated body mass index is 32.75 kg/m?? as calculated from the following: Height as of this encounter: 1.6 m (5' 3 ). Weight as of this encounter: 83.9 kg (184 lb 14.4 oz). Social History Tobacco Use Smoking Status Every Day ??? Packs/day: 0.50 ??? Years: 40.00 ??? Additional pack years: 0.00 ??? Total pack years: 20.00 ??? Types: Cigarettes Smokeless Tobacco Never Tobacco Comments pt said she will quit in 09/2021 Alcohol History Drug History Social History Substance and Sexual Activity Alcohol Use No Social History Substance and Sexual Activity Drug Use Yes ??? Types: Marijuana Comment: edibles 1 time per week- has not been taking lately Outpatient Medications: Inpatient Medications: No outpatient medications have been marked as taking for the 11/22/23 encounter (Hospital Encounter) with [facility] PAT ROOM 1. No current facility-administered medications for this encounter. Allergies: Allergies Allergen Reactions ??? Penicillins Other and Urticaria unknown Reaction: Hives, ??? Azithromycin Unknown ??? Risperidone Other Reported her face getting swollen ??? Statins [Hmg-Coa-R Inhibitors] Other Causes muscle tightness ??? Haloperidol Other unknown ??? Bee Venom Swelling ??? Codeine Itching ??? Penicillin G Other ??? Triazolam Unknown Relevant Problems Problem List: Patient Active Problem List Diagnosis Date Noted ??? CAD in [place] artery 10/24/2020 Priority: Not Prioritized ??? PAD (peripheral artery disease) ([facility]) Priority: Not Prioritized ??? MDD (recurrent major depressive disorder) in remission ([facility]) 08/05/2018 Priority: Not Prioritized ??? GIOVANNY (generalized anxiety disorder) 06/09/2017 ICD-10 update ??? Obesity 01/09/2017 ??? Nocturia 01/09/2017 ??? Personal history of transient ischemic attack (TIA), and cerebral infarction without residual deficits 01/09/2017 reported ??? Occlusion and stenosis of bilateral carotid arteries 01/09/2017 ??? Chronic pain syndrome 01/09/2017 ??? Type 2 diabetes mellitus with diabetic polyneuropathy ([facility]) 01/09/2017 EMG/[facility]CV [facility] ??? Insomnia due to medical condition 01/09/2017 ??? Gastro-esophageal reflux disease without esophagitis 01/09/2017 ??? Primary osteoarthritis of one knee 01/09/2017 ??? Other asthma 01/09/2017 ??? Sleep related leg cramps 01/09/2017 ??? Other forms of angina pectoris 01/09/2017 ??? Essential (primary) hypertension 01/09/2017 ??? Hypersomnia due to medical condition 01/09/2017 ??? Chronic obstructive pulmonary disease ([facility]) 01/09/2017 ??? Personal history of traumatic brain injury 01/09/2017 Reports brief LOC. Age 17. ??? Restless legs syndrome 01/01/2017 ??? Obstructive sleep apnea 01/01/2017 ??? Cervicalgia 04/28/2015 ??? Other chronic pain 04/28/2015 Medical History: Past Medical History: Diagnosis Date ??? Anxiety ??? Asthma ??? Atherosclerosis of coronary artery ??? Bladder cancer ([facility]) ??? Chest pain pain 10/23 ??? Chronic obstructive pulmonary disease (COPD) ([facility]) ??? Depression ??? Essential hypertension ??? GERD (gastroesophageal reflux disease) ??? History of diabetes mellitus ??? Obesity ??? Peripheral vascular disease ([facility]) ??? Pure hypercholesterolemia ??? Sleep apnea does not use CPAP ??? Snoring ??? TIA (transient ischemic attack) Surgical History: Past Surgical History: Procedure Laterality Date ??? Cholecystectomy 2007 ??? HX C SECTION CLASSIC 1989 ??? HX CAROTID ENDARDECTOMY 2014 ??? HX TUBAL LIGATION 1989 ??? NM FOOT/TOES SURGERY PROC UNLISTED ??? TRANS URETHRAL RESECT BLADDER TUMOR 03/23/2022 TRANSURETHRAL RESECTION BLADDER TUMOR (TURBT) ??? TRANS URETHRAL RESECT BLADDER TUMOR N/A 01/18/2023 N/A; Blue light cystoscopy and transurethral resection of bladder tumor ??? Tympanostomy 2013 ??? URETEROSCOPY Left 03/23/2022 Left; URETEROSCOPY PERMASTONE INSTALLER Status: No LMP recorded. Patient is postmenopausal. Postmenopausal OB History No obstetric history on file. Covid Vaccine: Lab Results: Recent Labs Component Name 10/22/23 1055 NITRITE - PROTEINUA 1+ No results found for requested labs within last 120 days. Recent Labs Result Component Current Result eGFR 75 (L) (10/22/2023) T MONITOR documented in this encounter Procedure Notes * Jr. Jamey Rodriguez Anes Asst - 12/07/2023 7:47 AM CSTAssociated Order(s): LMA Placement LMA Placement Procedure/LDA Note: Patient Location: OR. LMA Insertion Date/Time: 12/07/2023 7:37 AM Procedure: LMA. Pretreatment: 100% O2 Induction: standard IV Patient position: sniffing. Mask Ventilation: not attempted Type: LMA Size: 3 Number of Attempts: 1. Cuff volume (mL): 10 Placement verified by: bilateral breath sounds, chest auscultation and CO2 detector Dentition unchanged? Yes Procedure Start Time: 12/07/2023 7:37 AM. Staff Section Anesthesia Provider: Jr. Jamey Rodriguez Anes Asst, Performed the procedure T MONITOR documented in this encounter Miscellaneous Notes * Anesthesia Transfer of Care - Jr. Jamey Rodriguez Anes Asst - 12/07/2023 8:31 AM CST ANESTHESIA TRANSFER OF CARE NOTE Today's Date: 12/07/2023 Date of : 1960 Patient: Rody Zaidi Procedure(s): TRANSURETHRAL RESECTION BLADDER TUMOR (TURBT) LEFT RETROGRADE PYELOGRAM LEFT URETEROSCOPY, LEFT URETERAL BIOPSY Surgeon(s): Primary: Jose Oliver MD Resident - Assisting: Kenan Argueta MD Preop Diagnosis: Pre-op Diagnois: * Malignant neoplasm of urinary bladder, unspecified site (CMS-HCC) [C67.9] Pre-op Meds (From admission, onward) Start Stop Status Route Frequency Ordered 12/07/23 0558 0.9% NaCl injection 1-10 mL See Hyperspace for full Linked Orders Report. -- Dispensed IK PRN 12/07/23 0558 12/07/23 0600 0.9% NaCl injection 3 mL [facility] for full Linked Orders Report. -- Dispensed IK EVERY 8 HOURS 12/07/23 0558 12/07/23 0600 acetaminophen (Tylenol) tablet 1,000 mg 12/07/23 0633 Completed PO PRE-OP ONCE 12/07/23 0558 12/07/23 0808 albuterol (Proventil;Ventolin) (5 MG/ML) 0.5% nebulizer solution 2.5 mg -- Verified IN POST-OP MULTIPLE 12/07/23 0808 12/07/23 06 ceFAZolin (Ancef) 2 g in 0.9% NaCl IV 50 mL IVPB 12/07/23 1759 Verified IV INTRA-OP ONCE 12/07/23 0558 12/07/23 0808 diphenhydrAMINE (Benadryl) injection 25 mg -- Verified IV ONCE PRN 12/07/23 0808 12/07/23 0808 diphenhydrAMINE (Benadryl) injection 25 mg -- Verified IV POST-OP MULTIPLE 12/07/23 0808 12/07/23 0808 fentaNYL (PF) (Sublimaze) injection 25 mcg -- Verified IV EVERY 5 MIN PRN 12/07/23 0808 12/07/23 0808 fentaNYL (PF) (Sublimaze) injection 50 mcg -- Verified IV EVERY 5 MIN PRN 12/07/23 0808 12/07/23 0808 hydrALAZINE (Apresoline) injection 5 mg -- Verified IV POST-OP MULTIPLE 12/07/23 0808 12/07/23 0808 HYDROmorphone (Dilaudid) injection 0.5 mg -- Verified IV EVERY 10 MIN PRN 12/07/23 0808 12/07/23 0600 insulin regular human (HumuLIN R; NovoLIN R) 100 UNIT/ML injection 0-6 Units 12/07/23 1759 Verified IV ONCE 12/07/23 0558 12/07/23 0808 labetalol (Normodyne; Trandate) injection 5 mg -- Verified IV POST-OP MULTIPLE 12/07/23 0808 12/07/23 06 lactated ringers infusion -- Dispensed IV CONTINUOUS 12/07/23 0558 12/07/23 0600 lactated ringers infusion -- Dispensed IV PRE-OP CONTINUOUS 12/07/23 0558 12/07/23 0815 lactated ringers infusion 12/06/24 0814 Dispensed IV CONTINUOUS 12/07/23 0808 12/07/23 0808 naloxone (Narcan) injection 0.04 mg -- Verified IV POST-OP MULTIPLE 12/07/23 0808 12/07/23 0808 ondansetron (Zofran) injection 4 mg -- Verified IV ONCE PRN 12/07/23 0808 12/07/23 0808 prochlorperazine (Compazine) injection 10 mg -- Verified IV ONCE PRN 12/07/23 0808 Post-op Diagnosis: * Malignant neoplasm of urinary bladder, unspecified site (CMS-HCC) [C67.9] . Allergies Allergen Reactions ??? Risperidone Other Reported her face getting swollen ??? Statins [Hmg-Coa-R Inhibitors] Other Causes muscle tightness ??? Haloperidol Other unknown ??? Bee Venom Swelling ??? Codeine Itching ??? Triazolam Unknown Vitals: Patient Vitals for the past 3 hrs: BP Temp Pulse Resp SpO2 Pain Rating Score #1 12/07/23 0715 107/53 -- 71 19 94 % -- 12/07/23 0700 94/76 -- 70 13 93 % -- 12/07/23 0645 99/58 -- 69 23 94 % -- 12/07/23 0630 115/71 -- 73 20 94 % -- 12/07/23 0625 -- 98.2 ??F (36.8 ??C) -- -- -- 7 12/07/23 0622 121/90 -- 73 12 96 % -- Lines, Drains, and Airways Type Details Placement Removal Peripheral IV Date: 12/07/23; Time: 627; Orientation: Posterior, Right; Location: Forearm; Placed By: ladarius Romero; Gauge: 20 Gauge 12/07/23627 by Katt Chaudhari, ADONAY LMA 12/07/23; 07 (created via procedure documentation); Flavia Orourke Asst; 100% O2; Standard IV; mask not attempted; LMA; 3.0; Bilateral breath sounds, Chest Auscultation, CO2 Detector; 12/07/23; 0815 12/07/23 0737 by Jr. Jamey Rodriguez Anes Asst 12/07/23 0815 by Jr. Jamey Rodriguez Anes Asst Intraprocedure I/O Totals Intake LR (Lactated ringers) [...] understanding of report from the receiving PACUteam. Jamey Rodriguez jr., Anes Asst T MONITOR documented in this encounter Plan of Treatment Upcoming Encounters Date Type Department Care Team (Late st Contact Info) Description 01/19/2025 11:[address] MONITOR Procedure visit [facility] - Urology [address] [place] [address] [address] [place] [address] Jose Oliver MD [facility] [place] [id number] documented as of this encounter Goals Goal [...] Procedure Name Priority Date/Time Associated Diagnosis Comments LARYNGEAL MASK AIRWAY Routine 12/07/2023 7:[address] MONITOR documented in this encounter Results * LARYNGEAL MASK AIRWAY (12/07/2023 7:[address] MONITOR) Narrative Jr. Jamey Rodriguez Anes Asst - 12/07/2023 7:[address] MONITOR Jr. Jamey Rodriguez Anes Asst ? 12/07/2023 [...] procedure Alicja Weaver MD GENERAL ANESTHESIA ORDERABLES documented in this encounter Visit Diagnoses Not on filedocumented in this encounter Administered Medications Inactive Administered Medications - up to 3 most recent administrations Medication Order MAR Action Action Date Dose Rate Site ceFAZolin (Ancef) 2,000 mg in 50 mL IVPB Intravenous, PRN, Starting on Wed12/07/23 at 0728, Until Wed12/07/23 at 0830, Anesthesia Intra-op $ Given 12/07/2023 7:[address] MONITOR 2 g dexAMETHasone Sod Phosphate PF injection Intravenous, PRN, Starting on Wed12/07/23 at 0743, Until Wed12/07/23 at 0830, Anesthesia Intra-op $ Given 12/07/2023 7:[address] MONITOR 4 mg fentaNYL (PF) (Sublimaze) injection Intravenous, PRN, Starting on Wed12/07/23 at 0734, Until Wed12/07/23 at 0830, Anesthesia Intra-op $ Given 12/07/2023 8:[address] MONITOR 25 mcg $ Given 12/07/2023 8:[address] MONITOR 25 mcg $ Given 12/07/2023 7:[address] MONITOR 25 mcg lactated ringers infusion Intravenous, CONTINUOUS PRN, Starting on Wed12/07/23 at 0725, Until Wed12/07/23 at 0830, Anesthesia Intra-op $ New Bag/Syringe 12/07/2023 7:[address] MONITOR lidocaine HCl (PF) (Xylocaine MPF) 2 % injection Intravenous, PRN, Starting on Wed12/07/23 at 0735, Until Wed12/07/23 at 0830, Anesthesia Intra-op $ Given 12/07/2023 7:[address] MONITOR 100 mg midazolam (Versed) injection Intravenous, PRN, Starting on Wed12/07/23 at 0725, Until Wed12/07/23 at 0830, Anesthesia Intra-op $ Given 12/07/2023 7:[address] MONITOR 2 mg ondansetron (Zofran) injection Intravenous, PRN, Starting on Wed12/07/23 at 0814, Until Wed12/07/23 at 0830, Anesthesia Intra-op $ Given 12/07/2023 8:[address] MONITOR 4 mg propofol (Diprivan) injection Intravenous, PRN, Starting on Wed12/07/23 at 0735, Until Wed12/07/23 at 0830, Anesthesia Intra-op $ Given 12/07/2023 7:[address] MONITOR 150 mg documented in this encounter Care Teams Manager Loss Prevention Relationship Specialty Start Date End Date Deisi Andrews MD [address] [place] [phone] PCP - General Family Medicine 05/26/23 10/26/24 documented as of this encounter
--- OUTSIDE RECORDS SUMMARY | 2024-11-12 04:42 | XMS_ITS | Encounter Summary ---
Author Organization [facility] Address [address] [facility] [address] Care Team Providers Care Section Hand Name Role Phone Deisi Andrews MD Primary Care Provider [phone] Reason for Visit * Reason Onset Date Comments Refill Request 02/14/2024 Encounter Details Date Type Department Care Team (Late st Contact Info) Description 02/14/2024 Telephone [facility] - Centralized Scheduling [address] [place] [address] Gosia Marcos MD [address] [place] [address] Refill Request Social History Tobacco Use Types Packs/Day Years [...] encounter Miscellaneous Notes * Telephone Encounter - Jacklyn Harden - 02/14/2024 2:28 PM CDT Patient called in requesting a Med refill. Drug type:Lorazepam .5 mg Pharmacy:[facility] #[id number] Patient call back number: [phone] . documented in this encounter Plan of Treatment Upcoming Encounters Date Type Department Care Team (Late st Contact Info) Description 01/19/2025 11:30 AM LIGHT RAIL TRANSIT OPERATOR Procedure visit [facility] - Urology [address] [place] [address] [address] [place] [phone] Jose Oliver MD [facility] [place] [phone] documented as of this encounter Goals Goal [...] on filedocumented in this encounter Care Teams Section Hand Relationship Specialty Start Date End Date Deisi Andrews MD [address] [place] [address] [place] [address] PCP - General Family Medicine 05/26/23 10/26/24 documented as of this encounter
--- OUTSIDE RECORDS SUMMARY | 2024-11-12 04:42 | XMS_ITS | Encounter Summary ---
Author Organization [facility] Address [address] [place] [address] Care Team Providers Care City Planning Teacher Name Role Phone Deisi Andrews MD Primary Care Provider [phone] Encounter Details Date Type Department Care Team (Latest Contact Info) Description 01/07/2024 Travel Social History Tobacco Use Types Packs/Day [...] st Contact Info) Description 01/19/2025 11:30 AM STUDIO ENGINEER Procedure visit [facility] - Urology [address] [facility] [address] [place] [address] Jose Oliver MD [address] [facility] [address] [facility] [place] [address] documented as of this encounter Goals Goal [...] on filedocumented in this encounter Care Teams City Planning Teacher Relationship Specialty Start Date End Date Deisi Andrews MD [address] [place] [address] PCP - General Family Medicine 05/26/23 10/26/24 documented as of this encounter
--- OUTSIDE RECORDS SUMMARY | 2024-11-12 04:42 | XMS_ITS | Encounter Summary ---
Author Organization [facility] Address [address] [place] [address] Care Team Providers Care Gradall Operator Name Role Phone Deisi Andrews MD Primary Care Provider [phone] Reason for Visit * Reason Comments Blood in urine Pt BIBEMS from [facility] ED.Pt had bladder procedures by Dr Oliver on June 21. Now with hematuria and GI bleed. Pt went to [facility] ED this morning due to blood in urine. Encounter Details Date Type Department Care Team (Late st Contact Info) Description 06/28/2024 2:18 PM CDT - 06/28/2024 5:53 PM T Emergency [facility] EMERGENCY DEPARTMENT [address] [place] [phone] Martir Choi MD [address] [place] [address] [place] [phone] Luis Enrique Newman DO [address] [facility] [place] [place] [address] Hematuria, unspecified type Discharge Disposition: Home or Self Care Social [...] Sign Reading Time Taken Comments Blood Pressure 104/68 06/28/2024 4:30 PM CDT Pulse 83 06/28/2024 2:27 PM CDT Temperature 36.5 ??C (97.7 ??F) 06/28/2024 2:27 PM CD T Respiratory Rate 20 06/28/2024 2:27 PM CDT Oxygen Saturation 96% 06/28/2024 5:21 PM CDT Inhaled Oxygen Concentration - - Weight 81.2 kg (179 lb) 06/28/2024 2:27 PM CDT Height 160 cm (5' 3 ) 06/28/2024 2:27 PM CDT Body Mass Index 31.71 06/28/2024 2:27 PM [...] * Discharge Instructions* Mariana Zamora MD - 06/28/2024 4:53 PM CDT [facility] Urology Given that patient is voiding with minimal PVR today, no acute intervention at this time. Suspect that hematuria has persisted due to eliquis and plavix. Recommend patient hold eliquis and plavix for a few more days 2-3 days and resume once urine is clear as it had begun to clear today with her holding those medications Self-Care: - Drink plenty of water and try to limit the amount of caffeine you drink. Caffeine may be found incoffee, tea, soda, sports drinks, and foods. Caffeine can irritate the bladder. - Do not drive while on narcotics and the 24 hours after anesthesia. - It is not uncommon to have some blood in your urine after this procedure. This will improve over the next few days. - You may also notice some burning with urination. This will also improve over the next few days. - Please ask your surgeon when it [...] surgery or the recovery process, please contact [facility] Urology [phone] (Option #1: scheduling, Option #2 Nurse line, Option #3 surgery scheudler, Option#4 administration) on weekdays during regular business hours. If you have an urgent or emergent question on a weekend or after regular business hours, please contact [facility] at [phone] and ask for the provider position classifier for Urology. In addition, please contact us [...] 12 hours 10/28/2023 vitamin D, ergocalciferol, (DRISDOL) 04532 UNITS capsule Take 1 (one) capsule by [...] 11/01/2023 09/01/2024 documented as of this encounter Consult Notes * Mariana Zamora MD - 06/28/2024 3:02 PM CDT Images from the original note were not included. Urologic Surgery Consult Note Admit Date: 06/28/2024 NAME: Rody Zaidi AGE: [age] year old SEX: female Reason for Consult: Hematuria HPI: Rody Zaidi is a 63 year old female with a hx of non-muscle invasive bladder cancer since 2021 who underwent bladder biopsy and fulguration with Dr. Oliver on 06/21/24 and found to have small papillary changes at the right bladder dome and the right floor of the bladder which were biopsied and then fulgurated. She presented to an OSH the day after her surgery and was diagnosed with a possible UTI and placed on Keflex. She is on eliquis and Plavix, which she resume the day after her biopsy and her urine was not clearat that time. She notes hematuria over the past week but noted to be intermittent today with light pink urine. Notes associated nausea and some suprapubic pain. She felt that she passed a clot yesterday which prompted her to present to present to [facility] today with Hgb of 15.3 and WBC of 8.8, Cr 0.[address] with some bladder wall thickening She did not take her eliquis or plavix today. She was transferred to [facility] for further evaluation. In the ED she was afebrile, with UA showing 3+ blood (red wine in appearance), Cr of 0.69, WBC of 12.1. PVR of 8cc. REVIEW OF SYSTEMS Constitutional: Negative Cardiovascular: Negative Resp: Negative GI: Nausea : Hematuria Musculoskeletal: Negative Skin: Negative Neurological: Negative Endocrine: Negative Hem/Lymph: Negative Patient Active Problem List Diagnosis Date Noted CAD in [place] artery 10/24/2020 Priority: Not Prioritized PAD (peripheral artery disease) ([facility]) Priority: Not Prioritized MDD (recurrent major depressive disorder) in remission ([facility]) 08/05/2018 Priority: Not Prioritized GIOVANNY (generalized anxiety disorder) 06/09/2017 ICD-10 update Obesity 01/09/2017 Nocturia 01/09/2017 Personal history of transient ischemic attack (TIA), and cerebral infarction without residual deficits 01/09/2017 reported Occlusion and stenosis of bilateral carotid arteries 01/09/2017 Chronic pain syndrome 01/09/2017 Type 2 diabetes mellitus with diabetic polyneuropathy (HCC) 01/09/2017 EMG/NCV [facility] Insomnia due to medical condition 01/09/2017 Gastro-esophageal reflux disease without esophagitis 01/09/2017 Primary osteoarthritis of one knee 01/09/2017 Other asthma (HCC) 01/09/2017 Sleep related leg cramps 01/09/2017 Other forms of angina pectoris 01/09/2017 Essential (primary) hypertension 01/09/2017 Hypersomnia due to medical condition 01/09/2017 Chronic obstructive pulmonary disease (HCC) 01/09/2017 Personal history of traumatic brain injury 01/09/2017 Reports brief LOC. Age 17. Restless legs syndrome 01/01/2017 Obstructive sleep apnea 01/01/2017 Cervicalgia 04/28/2015 Other chronic pain 04/28/2015 Past Medical History: Diagnosis Date Anxiety Asthma (HCC) Atherosclerosis of coronary artery Bladder cancer (HCC) Cardiac dysrhythmia afib Chest pain pain 10/23 Chronic obstructive pulmonary disease (COPD) ([facility]) Depression Essential hypertension GERD (gastroesophageal reflux disease) History of diabetes mellitus Obesity Peripheral vascular disease (HCC) stents in both legs Pure hypercholesterolemia Sleep apnea does not use CPAP Snoring TIA (transient ischemic attack) Past Surgical History: Procedure Laterality Date Cholecystectomy 2006 CYSTOSCOPY Left 12/07/2023 Left; LEFT RETROGRADE PYELOGRAM CYSTOSCOPY Left 01/17/2024 Left; Cystoscopy, left retrograde pyelogram, bladder biopsy CYSTOSCOPY N/A 06/21/2024 N/A; CYSTOSCOPY, BLADDER BIOPSY HX C SECTION CLASSIC 1989 HX CAROTID ENDARDECTOMY 2014 HX TUBAL LIGATION 1989 OTHER SURGERY excision of anal warts CT FOOT/TOES SURGERY PROC UNLISTED TRANS URETHRAL RESECT BLADDER TUMOR 03/23/2022 TRANSURETHRAL RESECTION BLADDER TUMOR (TURBT) TRANS URETHRAL RESECT BLADDER TUMOR N/A 01/18/2023 N/A; Blue light cystoscopy and transurethral resection of bladder tumor TRANS URETHRAL RESECT BLADDER TUMOR N/A 12/07/2023 N/A; TRANSURETHRAL RESECTION BLADDER TUMOR (TURBT) Tympanostomy 2013 URETEROSCOPY Left 03/23/2022 Left; URETEROSCOPY URETEROSCOPY Left 12/07/2023 Left; LEFT URETEROSCOPY, LEFT URETERAL BIOPSY (Not in a hospital admission) Allergies Allergen Reactions Risperidone Other Reported her face getting swollen Statins [Hmg-Coa-R Inhibitors] Other Causes muscle tightness Haloperidol Other unknown Bee Venom Swelling Codeine Itching Triazolam Unknown Family History: Family History Problem Relation Name Age of Onset Depression Mother Alcohol abuse Father Depression Sister Thyroid Disease Neg Hx Social History: Social History Socioeconomic History Marital status: Single Tobacco Use Smoking status: Every Day Packs/day: 1.00 Years: 40.00 Additional pack years: 0.00 Total pack years: 40.00 Types: Cigarettes Smokeless tobacco: Never Vaping Use Vaping Use: Never used Substance and Sexual Activity Alcohol use: No Drug use: Yes Frequency: 1.0 times per week Types: Marijuana Comment: joint Social History Narrative 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 Date last employed: 30 years ago Vital Signs: BP (!) 131/105 Pulse 83 Temp 97.7 ??F (36.5 ??C) (Oral) Resp 20 Ht 1.6 m (5' 3 ) Wt 81.2 kg (179 lb) SpO2 95% Physical Exam: General: anxious, tearful Head/Neck: Normocephalic ENT: EOMI CV: Regular rate, regular rhythm Lungs: No increased respiratory effort Abdomen: Soft, non-distended,mild lower abdominal tenderness Genitourinary: light red wine urine seen at bedside Extremities: No edema, Neuro: Awake, alert Labs: Recent Labs Component Name 11/22/23 1036 03/11/22 1045 10/06/21 1600 WBC 9.9 12.5* 10.2 HGB 13.6 14.9 13.5 HCT 40.8 46.2* 41.4 MCV 82.6 85.2 88.8 Recent Labs Component Name 11/22/23 1036 03/11/22 1045 10/06/21 1600 10/21/20 0812 09/04/20 0729 NA 141 - 140 - 138 CL 107 - 104 - 104 CO2 BUN CREATININE 0.72 1.18* 0.97* - 0.7 CALCIUM 9.1 9.3 9.3 - 8.6 - = values in this interval not displayed. Recent Labs Component Name 10/06/21 1600 PROT 6.7 ALB 3.3* TBILI 0.2 AST 11 ALT 16 ALKPHOS 78 Recent Labs Component Name 06/21/24 0807 10/21/20 0812 INR 1.0 1.0 PTT 26.7 - No results for input(s): PHART , PO2ART , HXX1TIV , BEART in the last 73692 hours. Lab results smartLinks are not currently available Micro: No results found for this or any previous visit (from the past 72 hour(s)). 06/28/24 15:18 Color UA Red ! Clarity UA Slt Cloudy ! Specific [place] UA 1.028 pH UA 6.0 Protein UA 1+ ! Blood UA 3+ ! Ketone UA Negative Leukocyte Esterase Trace ! Nitrite UA Negative Glucose UA Negative Bilirubin UA Negative Urobilinogen UA Negative WBC UA 0-5 RBC UA >100 ! 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 Mild fat infiltration. 2. Left adrenal adenoma. Unchanged from previous examination. 3. Thickened wall of the urinary bladder posteriorly and superiorly which may be due to infection or infiltrative process. Cystoscopy and evaluation for cystitis is advised. 4. No evidence of appendicitis, diverticulitis or intestinal obstruction. Slightly thickened wall of the sigmoid colon is seen may indicate colitis. 5. Thickened wall of the duodenum. Clinical correlation advised. Assessment: Rody Zaidi is a 63 year old female who presented with hematuria underwent bladder biopsy and fulguration with Dr. Oliver on 06/21/24 and found to have small papillary changes at the right bladder dome and the right floor of the bladder and on eliquis and plavix. However, she is voiding spontaneously. Plan: Given that patient is voiding with minimal PVR today, no acute intervention at this time. Suspect that hematuria has persisted due to her AC. Recommend patient hold eliquis and plavix for a few more days 2-3 days and resume once urine is clear as it had begun to clear today with her holding AC. Return to the ED if hematuria worsens with clots and patient is having difficulty voiding. Given UA, have low concern for UTI but patient may complete previously prescribed keflex. Attending: Dr. Ashley Zamora MD 06/28/2024 3:03 PM documented in this encounter ED Notes * Claudia Patterson, Graduate Nurse - 06/28/2024 5:53 PM CDT Pt discharged per order. Pt ambulatory, VSS, pt understands discharge teaching. No acute distress * Luis Enrique Newman DO - 06/28/2024 3:54 PM CDT Care assumed from Dr. Choi at shift change. Please refer to their note for more details or initialpresentation. Briefly, this is a 63 year old female with chief complaint of hematuria. Patient has a history of bladder cancer and follows with urologist Dr. Oliver. Patient had a recent UTI diagnosis and put onKeflex. Urology is following patient at this time. Workup (labs/imaging) pending: urine culture Current Plan/Dispo: pending urology recommendations Please refer to previous resident's note for further details. BP (!) 131/105 Pulse 83 Temp 97.7 ??F (36.5 ??C) (Oral) Resp 20 Ht 1.6 m (5' 3 ) Wt 81.2 kg (179 lb) SpO2 95% ED Course: ED Course as of 06/30/24 08WedJun 28, 2024 1600 Patient reassessed at this time at the beginning of my shift, very anxious lying in bed, complaining of abdominal pain. We will order pain medication in addition to her home anxiety medications.Urology has been consulted by the previous team, currently pending their recommendations. [DB] 1276 Spoke with urology who state patient is cleared to be discharged home. Report patient's UA is not concerning for infection but patient can finish prescription for Keflex that was started. State patient needs to hold her anticoagulants until her urine is clear and follow up with them in clinic.[GH] 4065 I have reviewed her diagnostic findings and she has had an opportunity to ask me any questionsshe has about care, diagnosis and discharge plan. Patient is comfortable with the discharge plan. She will follow up as directed and will return to the ER if her condition worsens or she develops other urgent concerns. [GH] ED Course User Index [DB] Luis Enrique Newman DO [GH] Jasmin Hester Clinical Impressions as of 06/30/24 0801 Hematuria, unspecified type By signing my name below, I, Jasmin Hester, attest that this documentation has been prepared underthe direction and in the presence of Dr. Newman. Signed: Macarena Hair. Luis Enrique Newman DO Emergency Medicine Attending [facility] * Martir Choi MD - 06/28/2024 2:32 PM CDT [facility] ED Attending Note Patient was seen with Dr. Burgos, Carlos A Gill and PA Student Richy Sharpe who has also contributed to this note. CC: Rody Zaidi is a 63 year old female who presents to the ED today with a chief complaint of gross hematuria. HPI: Patient has hx of bladder cancer. Patient reports she initially presented to [facility] today for sixday hx of hematuria. Patient endorses associated nausea, lightheadedness and zaman. Patient reports she noted clots in her urine yesterday which prompted her to present to ED. Patient reports she had a cystoscopy on 06/21/[address] Oliver, patient went to an OSH ER a day after her surgery complaining of ZAMAN and was diagnosed with UTI and put on keflex. Patient denies chest pain, sob, dysuria, frequency, bloody stool, Patient on eliquis and Plavix. Patient had CT imaging done while at [facility], patient transferred with disc but not report. Per EMR review, patient presented to [facility] on 06/21/2024 to go to OR for scheduled cystoscopy and bladder biopsy with Dr. Oliver. Final diagnosis of bladder biopsy was benign urothelial mucosa with submucosal chronic inflammation, muscularis propria not present Additional history obtained CareEverywhere PMH: Past Medical History: Diagnosis Date Anxiety Asthma (HCC) Atherosclerosis of coronary artery Bladder cancer (HCC) Cardiac dysrhythmia afib Chest pain pain 10/23 Chronic obstructive pulmonary disease (COPD) (HCC) Depression Essential hypertension GERD (gastroesophageal reflux disease) History of diabetes mellitus Obesity Peripheral vascular disease (HCC) stents in both legs Pure hypercholesterolemia Sleep apnea does not use CPAP Snoring TIA (transient ischemic attack) Past Surgical History: Procedure Laterality Date Cholecystectomy 2007 CYSTOSCOPY Left 12/07/2023 Left; LEFT RETROGRADE PYELOGRAM CYSTOSCOPY Left 01/17/2024 Left; Cystoscopy, left retrograde pyelogram, bladder biopsy CYSTOSCOPY N/A 06/21/2024 N/A; CYSTOSCOPY, BLADDER BIOPSY HX C SECTION CLASSIC 1989 HX CAROTID ENDARDECTOMY 2014 HX TUBAL LIGATION 1989 OTHER SURGERY excision of anal warts CT FOOT/TOES SURGERY PROC UNLISTED TRANS URETHRAL RESECT BLADDER TUMOR 03/23/2022 TRANSURETHRAL RESECTION BLADDER TUMOR (TURBT) TRANS URETHRAL RESECT BLADDER TUMOR N/A 01/18/2023 N/A; Blue light cystoscopy and transurethral resection of bladder tumor TRANS URETHRAL RESECT BLADDER TUMOR N/A 12/07/2023 N/A; TRANSURETHRAL RESECTION BLADDER TUMOR (TURBT) Tympanostomy 2014 URETEROSCOPY Left 03/23/2022 Left; URETEROSCOPY URETEROSCOPY Left 12/07/2023 Left; LEFT URETEROSCOPY, LEFT URETERAL BIOPSY Family History Problem Relation Name Age of Onset Depression Mother Alcohol abuse Father Depression Sister Thyroid Disease Neg Hx Social History Tobacco Use Smoking status: Every Day Packs/day: 1.00 Years: 40.00 Additional pack years: 0.00 Total pack years: 40.00 Types: Cigarettes Smokeless tobacco: Never Substance Use Topics Alcohol use: No Home Medications: acetaminophen (Tylenol) 325 MG tablet albuterol (PROVENTIL;VENTOLIN) (2.5 MG/3ML) 0.083% nebulizer solution albuterol HFA (PROAIR HFA) 108 (90 Base) MCG/ACT inhaler ascorbic acid (Vitamin C) 500 MG tablet cetirizine (ZYRTEC) 10 MG tablet clopidogrel (PLAVIX) 75 MG tablet cromolyn (CROLOM) 4 % ophthalmic solution cyclobenzaprine (Flexeril) 10 MG tablet dexlansoprazole (Dexilant) 30 MG capsule Eliquis 5 MG tablet EPINEPHrine (EPIPEN) 0.3 MG/0.3ML auto-injector pen evolocumab (REPATHA SURECLICK) 140 MG/ML auto-injector ezetimibe (ZETIA) 10 MG tablet FLUoxetine (PROzac) 20 MG capsule fluticasone propionate (Flonase) 50 MCG/ACT nasal spray hyoscyamine (Levsin) 0.125 MG IR tablet ibuprofen (MOTRIN) 600 MG tablet LORazepam (Ativan) 0.5 MG tablet losartan (COZAAR) 100 MG tablet metFORMIN (GLUCOPHAGE) 500 MG tablet metoclopramide (Reglan) 5 MG tablet multivitamin daily tablet nicotine (Nicoderm CQ) 21 MG/24HR patch nicotine (Nicotrol) 10 MG inhaler nitroGLYCERIN (NITROSTAT) 0.4 MG tablet ondansetron, disintegrating, (Zofran ODT) 8 MG tablet oxyBUTYnin CR 24hr (Ditropan XL) 15 MG tablet sotalol (Betapace) 80 MG tablet vitamin D, ergocalciferol, (DRISDOL) 62840 UNITS capsule Allergies: Allergies Allergen Reactions Risperidone Other Reported her face getting swollen Statins [Hmg-Coa-R Inhibitors] Other Causes muscle tightness Haloperidol Other unknown Bee Venom Swelling Codeine Itching Triazolam Unknown Review of Systems: ROS germane to chief complaint included within HPI. . Vitals: 06/28/24 1415 06/28/24 1427 06/28/24 1440 BP: 123/88 (!) 131/105 Pulse: 80 83 Resp: 18 20 Temp: 97.4 ??F (36.3 ??C) 97.7 ??F (36.5 ??C) SpO2: 100% 96% 95% Weight: 81.2 kg (179 lb) 81.2 kg (179 lb) Height: 1.676 m (5' 6 ) 1.6 m (5' 3 ) Physical Exam: Physical Exam Vitals and nursing note reviewed. Constitutional: General: She is not in acute distress. Appearance: Normal appearance. She is well-developed. HENT: Head: Normocephalic and atraumatic. Right Ear: External ear normal. Left Ear: External ear normal. Eyes: Extraocular Movements: Extraocular movements intact. Conjunctiva/sclera: Conjunctivae normal. Pupils: Pupils are equal. Neck: Trachea: Phonation normal. No tracheal deviation. Pulmonary: Effort: Pulmonary effort is normal. No respiratory distress. Breath sounds: No stridor. Abdominal: Tenderness: There is abdominal tenderness (minimal lower midline abdominal tenderness). There is left CVA tenderness (minimal). Genitourinary: Comments: No blood on rectal exam Musculoskeletal: General: No deformity. Cervical back: Normal range of motion. Normal range of motion. Skin: General: Skin is warm and dry. Neurological: Mental Status: She is alert and oriented to person, place, and time. Cranial Nerves: No cranial nerve deficit. Motor: No tremor. Psychiatric: Mood and Affect: Affect is tearful. MDM: Problems: Acute problems: 1. Hematuria DDx: Includes but is not limited to cystitis vs hemorrhagic cystis vs bleeding from cautery site vsbleeding from un-treated polyp vs other Initial Plan: Includes but is not limited to check labs and ua, consult urology Orders placed: Diagnostic: Orders Placed This Encounter CULTURE URINE CBC W AUTO DIFFERENTIAL BASIC METABOLIC PANEL (CALCIUM TOTAL) PT-INR [facility] URINALYSIS REFLEX TO MICROSCOPIC NO CULTURE Medications: Medications - No data to display Results reviewed: Labs Reviewed CULTURE URINE CBC W AUTO DIFFERENTIAL BASIC METABOLIC PANEL (CALCIUM TOTAL) PT-INR [facility] URINALYSIS REFLEX TO MICROSCOPIC NO CULTURE No orders to display Pulse Ox: Sat: 96 % on RA; Interpretation: WNL director digital analytics: SR, nl rate Consults: Findings and studies above were discussed with urology. Procedures: No POCUS: No Progress: Course: 3:02 PM: Discussed all the pertinent aspects of the case with urology who will see the patient. 3:03 PM: culture urine, UA, PT-INR, BMP and CBC ordered 3:03 PM: CHRIS to Dr. Newman, pending urology recommendations and labs Critical care: No Disposition: CHRIS to Dr. Newman Clinical Impression: 1. Hematuria, unspecified type By signing my name below, I attest that this documentation has been prepared under the direction and in the presence of Dr. Choi. Signed: Macarena Gonzalez. I personally performed the services described in this documentation. All medical record entries made by the [email or web address] were at my direction and in my presence. I have reviewed the chart and agree that the record reflects my personal performance and is accurate and complete. * Vero Schultz RN - 06/28/2024 2:18 PM CDT Bed: AC31 Expected date: Expected time: Means of arrival: Comments: Gelso documented in this encounter Plan of Treatment Upcoming Encounters Date Type Department Care Team (Late st Contact Info) Description 01/19/2025 11:30 AM APPIAN DEVELOPER Procedure visit [facility] - Urology [address] [place] [id number] Jose Oliver MD [address] [place] [phone] documented as of this encounter Goals Goal [...] Name Priority Date/Time Associated Diagnosis Comments URINALYSIS REFLEX TO MICROSCOPIC NO CULTURE STAT 06/28/2024 3:18 PM CDT CULTURE URINE STAT 06/28/2024 3:18 PM CDT PT-INR [facility] STAT 06/28/2024 3:17 PM CDT CBC W AUTO DIFFERENTIAL STAT 06/28/2024 3:17 PM CDT BASIC METABOLIC PANEL (CALCIUM TOTAL) STAT 06/28/2024 3:17 PM CDT documented in this encounter Results * CULTURE URINE (06/28/2024 3:18 PM CDT) Culture Urine <10,000 CFU/mL urogenital unruly ZORAN 06/29/2024 9:52 PM CDT [facility] Urine URINE SPECIMEN OBTAINED BY CLEAN CATCH PROCEDURE / Unknown Collection / Unknown 06/28/2024 3:18 PM CDT 06/28/2024 3:23 PM CDT Martir Choi MD LAB - MICROBIOLOGY O [facility] [address] [place] [address], [facility] [phone] * (ABNORMAL) URINALYSIS REFLEX TO MICROSCOPIC NO CULTURE (06/28/2024 3:18 PM CDT) Color UA Red(A) Straw, Yellow 06/28/2024 3:51 PM T [facility] Clarity UA Slt Cloudy(A) Clear 06/28/2024 3:51 PM [facility] Specific [place] UA 1.028 1.005 - 1.030 06/28/2024 3:51 PM [facility] pH UA 6.0 5.0 - 8.0 pH 06/28/2024 3:51 PM [facility] Protein UA 1+(A) Negative 06/28/2024 3:51 PM [facility] Glucose UA Negative Negative 06/28/2024 3:51 PM [facility] Ketone UA Negative Negative 06/28/2024 3:51 PM [facility] Bilirubin UA Negative Negative 06/28/2024 3:51 PM [facility] Blood UA 3+(A) Negative 06/28/2024 3:51 PM [facility] Nitrite UA Negative Negative 06/28/2024 3:51 PM [facility] Leukocyte Esterase Trace(A) Negative 06/28/2024 3:51 PM [facility] Urobilinogen UA Negative Negative mg/dL 06/28/2024 3:51 PM [facility] RBC UA >100(A) None Seen, 0-2, 3-5 /HPF 06/28/2024 3:51 PM [facility] WBC UA 0-5 None Seen, 0-5 /HPF 06/28/2024 3:51 PM CDT [facility] Squamous Epithelial Cells UA 0-2 None Seen, 0-2, 3-5 /HPF 06/28/2024 3:51 PM CDT [facility] Urine URINE SPECIMEN OBTAINED BY CLEAN CATCH PROCEDURE / Unknown Collection / Unknown 06/28/2024 3:18 PM CDT 06/28/2024 3:22 PM CDT Narrative [facility] - 06/28/2024 3:51 PM CDT Martir Choi MD LAB - URINALYSIS ORD ERABLES Performing Organization Address City/[facility]/ZIP Co de Phone Number [address] [address], [facility] [phone] * PT-INR [facility] (06/28/2024 3:17 PM CDT) PT 13.1 12.1 - 14.8 Seconds 06/28/2024 3:47 PM CDT [facility] INR 1.0 See Comment 06/28/2024 3:47 PM CDT [facility] Comment:The suggested therap eutic range for standard coumadin (warfarin) therapy is an INR of 2.0-3.0. For high-risk patients (Mechanical Mitral Valve Prosthesis, etc.), the suggested prophylactic therapeutic range is an INR of 2.5-3.5. Blood BLOOD SPECIMEN / Unknown Venipuncture / Unknown 06/28/2024 3:17 PM CDT 06/28/2024 3:26 PM CDT Martir Choi MD LAB - COAGULATION OR DERABLES [address] [address], [place] [phone] * BASIC METABOLIC PANEL (CALCIUM TOTAL) (06/28/2024 3:17 PM CDT) BUN 15 7 - 26 mg/dL 06/28/2024 3:51 PM CDT [facility] Creatinine 0.69 0.56 - 0.96 mg/dL 06/28/2024 3:51 PM [facility] Sodium 138 136 - 145 mmol/L 06/28/2024 3:51 PM [facility] Potassium 4.0 3.5 - 4.5 mmol/L 06/28/2024 3:51 PM [facility] Chloride 103 98 - 107 mmol/L 06/28/2024 3:51 PM [facility] CO2 26 22 - 29 mmol/L 06/28/2024 3:51 PM [facility] Glucose 102 70 - 115 mg/dL 06/28/2024 3:51 PM [facility] Calcium 9.4 8.4 - 10.2 mg/dL 06/28/2024 3:51 PM [facility] Anion Gap 9 6 - 16 06/28/2024 3:51 PM [facility] BUN/Creatinine Ratio 22 7 - 23 06/28/2024 3:51 PM [facility] Osmolality Calculated 287 275 - 295 mOsm/kg 06/28/2024 3:51 PM [facility] eGFR by CKD-EPI >90 >=90 mL/min/1.7 3 m2 06/28/2024 3:51 PM [facility] Blood BLOOD SPECIMEN / Unknown Venipuncture / Unknown 06/28/2024 3:17 PM CDT 06/28/2024 3:26 PM CDT Martir Choi MD LAB - CHEMISTRY BASSAM [facility] Organization Address City/State/[facility] Co de Phone Number [address] [address], [facility] [phone] * (ABNORMAL) CBC W AUTO DIFFERENTIAL (06/28/2024 3:17 PM CDT) WBC 12.1(H) 4.0 - 10.7 x10E9/L 06/28/2024 3:33 PM [facility] RBC Count 5.43(H) 3.90 - 5.20 x10E12/L 06/28/2024 3:33 PM [facility] Hemoglobin 15.3 11.9 - 15.8 g/dL 06/28/2024 3:33 PM [facility] Hematocrit 46.0 34.8 - 46.1 % 06/28/2024 3:33 PM [facility] MCV 84.7 80.0 - 98.0 fL 06/28/2024 3:33 PM [facility] MCH 28.2 26.7 - 33.6 pg 06/28/2024 3:33 PM [facility] MCHC 33.3 31.7 - 36.3 g/dL 06/28/2024 3:33 PM [facility] RDW-CV 13.0 11.3 - 14.8 % 06/28/2024 3:33 PM [facility] Platelet Count 218 150 - 420 x10E9/L 06/28/2024 3:33 PM [facility] MPV 9.9 7.8 - 11.4 fL 06/28/2024 3:33 PM [facility] Neutrophil % 65.5 41.0 - 74.0 % 06/28/2024 3:33 PM [facility] Lymphocyte % 24.0 17.0 - 47.0 % 06/28/2024 3:33 PM [facility] Monocyte % 6.7 3.0 - 11.0 % 06/28/2024 3:33 PM [facility] Eosinophil % 3.1 0.0 - 7.0 % 06/28/2024 3:33 PM [facility] Basophil % 0.4 0.0 - 1.6 % 06/28/2024 3:33 PM [facility] Immature Granulocytes % 0.3 0.0 - 1.0 % 06/28/2024 3:33 PM [facility] Neutrophil Absolute 7.90(H) 1.60 - 7.50 x10E9/L 06/28/2024 3:33 PM [facility] Lymphocyte Absolute 2.90 1.00 - 4.40 x10E9/L 06/28/2024 3:33 PM [facility] Monocyte Absolute 0.81 0.15 - 1.00 x10E9/L 06/28/2024 3:33 PM CDT [facility] Eosinophil Absolute 0.38 0.00 - 0.60 x10E9/L 06/28/2024 3:33 PM CDT [facility] Basophil Absolute 0.05 0.00 - 0.13 x10E9/L 06/28/2024 3:33 PM CDT [facility] Blood BLOOD SPECIMEN / Unknown Venipuncture / Unknown 06/28/2024 3:17 PM CDT 06/28/2024 3:26 PM CDT Martir Choi MD LAB - HEMATOLOGY ORD ERABLES [facility] [address] [place] [address], [facility] [phone] documented in this encounter Visit Diagnoses Diagnosis Hematuria, unspecified type documented in this encounter Administered Medications Inactive Administered Medications - up to 3 most recent administrations Medication Order MAR Action Action Date Dose Rate Site ALPRAZolam (Xanax) tablet 1 mg 1 mg, Oral, NOW, 1 dose, On Wed06/28/24 at 1615 $ Given 06/28/2024 4:10 PM CDT 1 mg morphine injection 2 mg 2 mg, Intravenous, NOW, 1 dose, On Wed06/28/24 at 1615, Patient preference for lesser PRN pain meds [...] patient cannot tolerate oral intake $ Given 06/28/2024 4:05 PM CDT 2 mg documented in this encounter Active and Recently Administered Medications Times are shown in CDT. Scheduled Medication Order 06/26/2024 06/27/2024 06/28/2024 ALPRAZolam (Xanax) tablet 1 mg (COMPLETED) 1 mg, Oral, NOW, 1 dose, On Wed06/28/24 at 1615 1610 ($ Given - Prov ider: Claudia Patterson, Graduate Nurse) morphine injection 2 mg (COMPLETED) 2 mg, Intravenous, NOW, 1 dose, On Wed06/28/24 at 1615, Patient preference for lesser PRN pain meds [...] first unless patient cannot tolerate oral intake 1605 ($ Given - Prov ider: Claudia Patterson, Graduate Nurse) documented in this encounter Care Teams Gradall Operator Relationship Specialty Start Date End Date Deisi Andrews MD [address] [place] [address] [place] [address] PCP - General Family Medicine 05/26/23 10/26/24 documented as of this encounter
--- OUTSIDE RECORDS SUMMARY | 2024-11-12 04:42 | XMS_ITS | Encounter Summary ---
Author Organization [facility] Address [address] [facility] [place] [address] Care Team Providers Care Director Surgical Name Role Phone Deisi Andrews MD Primary Care Provider [phone] Reason for Referral * Radiology Services (Routine) - Closed Specialty Diagnoses / Procedures Referred By Nacho brooks Referred To Contact Nuclear Medicine Diagnoses Other hydronephrosis Procedures NM RENAL SCAN W Jose Keane MD [address] [place] [address] [address] [place] [address] [facility] Nuclear Medicine [address] [place] [phone] Referral ID Status Reason Start Date Expiration Date Visits Re quested Visits Authorized [id number] Closed 04/18/2024 04/18/2025 1 1 Reason for Visit * Radiology Services (Routine) - Closed Specialty Diagnoses / Procedures Referred By Contsamra t Referred To Contact Nuclear Medicine Diagnoses Other hydronephrosis Procedures NM RENAL SCAN W Joes Keane MD [address] [facility] 2[place] [address] [facility] Nuclear Medicine [address] [place] [phone] Referral ID Status Reason Start Date Expiration Date Visits Re quested Visits Authorized [id number] Closed 04/18/2024 04/18/2025 1 1 Encounter Details Date Type Department Care Team (Latest Contact Info) Description 04/20/2024 8:56 AM CDT - 04/20/2024 9:33 AM CDT Hospital Encounter [facility] [address] [address] NUCLEAR MEDICINE [address] [place] [address] Jose Oliver MD [address] [facility] 2[address] [place] [address] Discharge Disposition: Home or Self Care Social [...] No 01/17/2024 documented as of this encounter Medications at Time of Discharge Medication Sig Dispensed Refills Start Date End Date albuterol (PROVENTIL;VENTOLIN) (2.5 MG/3ML) 0.083% nebulizer solution Inhale 2.5 (two and one-half) mg by mouth every 4 hours as needed for Shortness of Breath 75 mL 11/03/2021 albuterol HFA (PROAIR HFA) 108 (90 Base) MCG/ACT inhalerIndications:Sta ge 2 moderate COPD by GOLD classification ([facility]) Inhale 2 (two) puffs by mouth every [...] 12 hours 10/28/2023 vitamin D, ergocalciferol, (DRISDOL) 05090 UNITS capsule Take 1 (one) capsule by [...] by mouth once daily 90 capsule 1 04/13/2024 06/15/2024 FLUoxetine (PROzac) 20 MG capsule Take 1 (one) capsule by mouth once daily 30 capsule 1 01/17/2024 06/19/2024 LORazepam (Ativan) 0.5 MG tablet Take 1 (one) tablet by mouth 3 times daily as needed for Anxiety 90 tablet 1 04/13/2024 06/19/2024 oxyBUTYnin CR 24hr (Ditropan XL) 15 MG tabletIndications:Anastasiya gnant neoplasm of urinary bladder, unspecified site (HCC),Bladder spasms,Urinary frequency Take 1 (one) tablet by mouth once daily 90 tablet 4 11/01/2023 09/01/2024 pantoprazole EC (PROTONIX) 40 MG tabletIndications:need follow up visit for further [phone] option 1 Take 1 (one) tablet by mouth once daily Reasons: need follow up visit for further [phone] option 1 90 tablet 3 01/23/2022 06/15/2024 Symbicort 160-4.5 MCG/ACT inhalerIndications:Sta ge 2 moderate COPD by GOLD classification ([facility]) INHALE 2 PUFFS BY MOUTH TWICE DAILY 10.2 g 07/07/2023 06/15/2024 documented as of this encounter Plan of Treatment Upcoming Encounters Date Type Department Care Team (Late st Contact Info) Description 01/19/2025 11:30 AM PAINTER AIRBRUSH Procedure visit [facility] - Urology [address] [facility] [address] [place] [address] Jose Oliver MD [address] [place] [address] documented as of this encounter Goals Goal [...] Procedure Name Priority Date/Time Associated Diagnosis Comments NM RENAL SCAN W DRUG Routine 04/20/2024 11:21 AM CDT Other hydronephrosis documented in this encounter Results * NM [...] kidney. > Dictated by Margi Brooke MD (Registered Dietitian) 04/20/2024 9:43 AM Samira Rader DO have personally reviewed and interpreted this examination/study. > Interpreting Provider: Samira Tariq DO on 04/20/2024 3:39 PM Narrative 04/20/2024 3:39 PM CDT PROCEDURE: ??NM RENAL SCAN W DRUG, DATE/TIME OF EXAM: ??04/20/2024 9:58 AM, LOCATION ??[facility] INDICATION: N13.39: Other hydronephrosis ADDITIONAL CLINICAL [...] ? Half-peak time (min) Procedure Note Samira Tariq DO - 04/20/2024 PROCEDURE: NM RENAL SCAN W DRUG, DATE/TIME OF EXAM: 04/20/2024 9:58 AM, LOCATION [facility] INDICATION: N13.39: Other hydronephrosis ADDITIONAL CLINICAL [...] kidney. > Dictated by Margi Brooke MD (Registered Dietitian) 04/20/2024 9:43 AM ISamira DO have personally reviewed and interpreted this examination/study. > Interpreting Provider: Samira Tariq DO on 04/20/2024 3:39 PM Jose Oliver MD NM ORDERABLES documented in this encounter Visit Diagnoses Diagnosis Other hydronephrosis documented in this encounter Administered Medications Inactive Administered Medications - up to 3 most recent administrations Medication Order MAR Action Action Date Dose Rate Site Tc-99m mertiatide (Technecan Mag3) injection SOLN 11 millicurie 11 millicurie, Intravenous, ONCE, 1 dose, On [place] 04/20/24 at 1000 $ Given 04/20/2024 9:14 AM CDT 11 millicuries documented in this encounter Care Teams Director Surgical Relationship Specialty Start Date End Date Deisi Andrews MD [address] [place] [address] DANNIE Rodríguez [phone] PCP - General Family Medicine 05/26/23 10/26/24 documented as of this encounter
--- OUTSIDE RECORDS SUMMARY | 2024-11-12 04:42 | XMS_ITS | Encounter Summary ---
Author Organization [facility] Address [address] [facility] [place] [address] Care Team Providers Care Cellophane Worker Name Role Phone Deisi Andrews MD Primary Care Provider Reason for Visit * Reason Comments Refill Request Encounter Details Date Type Department Care Team ([facility] Contact Info) Description 11/30/2023 Refill [facility] - Urology [address] [place] [address] [address] [place] [address] Jose Oliver MD [address] [place] [address] Refill Request Social History Tobacco Use Types [...] st Contact Info) Description 01/19/2025 11:30 AM TIRE RECAPPER Procedure visit [facility] - Urology [address] [place] [address] [address] [place] [address] Jose Oliver MD [address] [place] [address] documented as of this encounter Goals Goal [...] on filedocumented in this encounter Care Teams Cellophane Worker Relationship Specialty Start Date End Date Deisi Andrews MD [address] [place] Rodríg[place] [phone] PCP - General Family Medicine 05/26/23 10/26/24 documented as of this encounter
--- OUTSIDE RECORDS SUMMARY | 2024-11-12 04:42 | XMS_ITS | Encounter Summary ---
Author Organization [facility] Address [address] [place] [place] [address] Care Team Providers Care Automobile Body Repairer Helper Name Role Phone Deisi Andrews MD Primary Care Provider [phone] Encounter Details Date Type Department Care Team (Latest Contact Info) Description 06/21/2024 Travel Social History Tobacco Use Types Packs/Day [...] st Contact Info) Description 01/19/2025 11:30 AM MEDICAL TECHNOLOGIST MICROBIOLOGY Procedure visit [facility] - Urology [address] [facility] [address] [place] [address] Jose Oliver MD [address] [facility] [address] [facility] [place] [address] documented as of this encounter Goals Goal [...] on filedocumented in this encounter Care Teams Automobile Body Repairer Helper Relationship Specialty Start Date End Date Deisi Andrews MD [address] [place] [address] [place] [address] PCP - General Family Medicine 05/26/23 10/26/24 documented as of this encounter
--- OUTSIDE RECORDS SUMMARY | 2024-11-12 04:42 | XMS_ITS | Encounter Summary ---
Author Organization [facility] Address [address] [place] [address] Care Team Providers Care Supervisor Printing Shop Name Role Phone Deisi Andrews MD Primary Care Provider [phone] Reason for Visit * Auth/Cert (Routine) Specialty Diagnoses / Procedures Referred By Nacho brooks Referred To Contact Diagnoses Other hydronephrosis Other hydronephrosis Procedures [place] CYSTOURETHROSCOPY,URETER CATHETER [place] CYSTOSCOPY,DIL URETHRAL STRICTURE [place] CYSTOSCOPY,INSERT URETERAL STENT CYSTOSCOPY WITH RETROGRADE PYELOGRAM CYSTOSCOPY DILATION URETHRA (WITH/WITHOUT MEATOTOMY) CYSTOSCOPY WITH INSERTION URETERAL STENT Referral ID Status Reason Start Date Expiration Date Visits Re quested Visits Authorized [id number] 1 1 Encounter Details Date Type Department Care Team (Latest Contact Info) Description 01/17/2024 6:20 PM DIVORCE MEDIATOR - 01/17/2024 11:59 PM [facility] Hospital Encounter [facility] DIAGNOSTIC RAD [address] [place] [phone] Jose Oliver MD [address] [facility] 2L [place] [address] Discharge Disposition: Home or Self Care Social [...] 2 moderate COPD by GOLD classification ([facility]) Inhale 2 (two) puffs by mouth [...] 12 hours 10/28/2023 vitamin D, ergocalciferol, (DRISDOL) 02754 UNITS capsule Take 1 (one) capsule by [...] once daily 30 capsule 1 01/17/2024 06/19/2024 HYDROcodone-acetaminop hen ([place]) 5-325 MG tabletIndications:Othe r hydronephrosis Take 1 (one) tablet by mouth every 6 hours as needed for Pain 4 tablet 01/17/2024 02/16/2024 LORazepam (Ativan) 0.5 MG tablet Take 1 (one) tablet by mouth 3 times daily as needed for Anxiety 90 tablet 01/14/2024 02/14/2024 oxyBUTYnin CR 24hr (Ditropan XL) 15 MG tabletIndications:Anastasiya gnant neoplasm of urinary bladder, unspecified site ([facility]),Bladder spasms,Urinary frequency Take 1 (one) tablet by mouth once daily 90 tablet 4 11/01/2023 09/01/2024 pantoprazole EC (PROTONIX) 40 MG tabletIndications:need follow up visit for further [phone] option 1 Take 1 (one) tablet by mouth once daily Reasons: need follow up visit for further [phone] option 1 90 tablet 3 01/23/2022 06/15/2024 Symbicort 160-4.5 MCG/ACT inhalerIndications:Sta ge 2 moderate COPD by GOLD classification ([facility]) INHALE 2 PUFFS BY MOUTH TWICE DAILY 10.2 g 07/07/2023 06/15/2024 documented as of this encounter Plan of Treatment Upcoming Encounters Date Type Department Care Team (Late st Contact Info) Description 01/19/2025 11:30 AM DIVORCE MEDIATOR Procedure visit [facility] - Urology [address] [place] [address] [address] [place] [address] Jose Oliver MD [address] [place] [address] documented as of this encounter Goals Goal [...] [place] CYSTO SURGERY Routine 01/17/2024 7:04 PM DIVORCE MEDIATOR Other hydronephrosis documented in this encounter Results * [place] CYSTO SURGERY (01/17/2024 7:04 PM DIVORCE MEDIATOR) Narrative [facility] RADIOLOGY - 01/17/2024 7:04 PM DIVORCE MEDIATOR Fluoroscopy was used for this exam in the OR. Please see the Operative report. Jose Oliver MD FLUOROSCOPY ORDERA SUNIL [facility] documented in this encounter Visit Diagnoses Not on filedocumented in this encounter Care Teams Supervisor Printing Shop Relationship Specialty Start Date End Date Deisi Andrews MD [address] [place] [address] [place] [phone] PCP - General Family Medicine 05/26/23 10/26/24 documented as of this encounter
--- OUTSIDE RECORDS SUMMARY | 2024-11-12 04:42 | XMS_ITS | Encounter Summary ---
Author Organization [facility] Address [address] [place] [address] Care Team Providers Care Dam Tender Name Role Phone Deisi Andrews MD Primary Care Provider [phone] Reason for Referral * Radiology Services (Routine) - Closed Specialty Diagnoses / Procedures Referred By Nacho brooks Referred To Contact Nuclear Medicine Diagnoses Other hydronephrosis Procedures NM RENAL SCAN W Jose Keane MD [address] [place] [address] [place] [address] [facility] Nuclear Medicine [address] [place] [phone] Referral ID Status Reason Start Date Expiration Date Visits Re quested Visits Authorized [id number] Closed 04/18/2024 04/18/2025 1 1 ENT SERVICES 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 Reason for Visit * Auth/Cert (Routine) Specialty Diagnoses / Procedures Referred By Nacho brooks Referred To Contact Diagnoses Other hydronephrosis Other hydronephrosis Procedures OR CYSTOURETHROSCOPY,URETER CATHETER OR CYSTOSCOPY,DIL URETHRAL STRICTURE OR CYSTOSCOPY,INSERT URETERAL STENT CYSTOSCOPY WITH RETROGRADE PYELOGRAM CYSTOSCOPY DILATION URETHRA (WITH/WITHOUT MEATOTOMY) CYSTOSCOPY WITH INSERTION URETERAL STENT Referral ID Status Reason Start Date Expiration Date Visits Re quested Visits Authorized [id number] 1 1 Encounter Details Date Type Department Care Team (Latest Contact Info) Description 01/17/2024 5:33 AM STUDENT SERVICES 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 - 01/17/2024 9:49 AM STUDENT SERVICES 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 Hospital Encounter [facility] [address] [place] [phone] Jose Oliver MD [address] [facility] 2L [place] [phone] Surgery General Discharge Disposition: Home or Self [...] Sign Reading Time Taken Comments Blood Pressure 108/93 01/17/2024 9:30 AM STUDENT SERVICES 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 Pulse 54 01/17/2024 9:30 AM STUDENT SERVICES 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 Temperature 36.4 ??C (97.6 ??F) 01/17/2024 9:02 AM CS T Respiratory Rate 13 01/17/2024 9:30 AM STUDENT SERVICES 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 Oxygen Saturation 96% 01/17/2024 9:30 AM STUDENT SERVICES 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 Inhaled Oxygen Concentration 40% 01/17/2024 8 :20 AM STUDENT SERVICES 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 Weight 81.7 kg (180 lb 3.2 oz) 01/17/2024 5:43 A M STUDENT SERVICES 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 Height 160 cm (5' 3 ) 01/17/2024 5:43 AM STUDENT SERVICES 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 Body Mass Index 31.92 01/17/2024 5:43 AM STUDENT SERVICES 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 documented in this encounter Functional Status Functional [...] Mariana Zamora MD - 01/17/2024 8:23 AM STUDENT SERVICES 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 Images from the original note were not included. [facility] Urology You had a procedure called a [...] are scheduled for lasix renal scan at [facility] on April 20 at 9AM. You are scheduled to follow up with Dr Oliver on WednesdayApril 21 with clinic cystoscopy at 9:45 AM.If you need to cancel or reschedule the appointment please call [phone]. The [facility] is located at [address] [place] [address], [address], [place] [address]. The phone number to clinic is [phone] if you need to cancel or re-schedule. Please arrive 15 minutes early. Post Operative Pain Control: - You can take Tylenol (acetaminophen) and Motrin (Ibuprofen) in alternating fashion every 4-6 hours, especially in the first 24-48 hours after surgery, then as needed thereafter. - You may also be prescribed narcotic pain medication such as Oxycodone, Diamond[place], or Tramadol. This should be taken as needed for severe pain only. Do not drink alcohol, drive, or operate heavy machinery while taking this type of medication. If the narcotic is Diamondville, please understand that Diamondville has Tyelonol in it. If you are [...] surgery or the recovery process, please contact [facility] Urology [phone] (Option #1: scheduling, Option #2 Nurse line, Option #3 surgery scheudler, Option#4 administration) on weekdays during regular business hours. If you have an urgent or emergent question on a weekend or after regular business hours, please contact [facility] at [phone] and ask for the provider supervisor customer records division for Urology. In addition, please contact us [...] to the touch, or non-clear, foul-smelling drainage) ENT SERVICES 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 documented in this encounter Medications at Time of Discharge Medication Sig Dispensed Refills Start Date End Date albuterol (PROVENTIL;VENTOLIN) (2.5 MG/3ML) 0.083% nebulizer solution Inhale 2.5 (two and one-half) mg by mouth every 4 hours as needed for Shortness of Breath 75 mL 11/03/2021 albuterol HFA (PROAIR HFA) 108 (90 Base) MCG/ACT inhalerIndications:Sta ge 2 moderate COPD by GOLD classification ([facility]) Inhale 2 (two) puffs by mouth every [...] 12 hours 10/28/2023 vitamin D, ergocalciferol, (DRISDOL) 99436 UNITS capsule Take 1 (one) capsule by mouth every 7 days 01/29/2019 acetaminophen (TYLENOL) 325 MG tablet Take 2 (two) tablets by mouth every 6 hours as needed for Fever or Pain Maximum allowable Acetaminophen amount = 4 Grams (4000 mg) / 24 hours. 60 tablet 03/23/2022 06/21/2024 HYDROcodone-acetaminop hen (Diamondville) 5-325 MG tabletIndications:Othe r hydronephrosis Take 1 (one) tablet by mouth every 6 hours as needed for Pain 4 tablet 01/17/2024 02/16/2024 LORazepam (Ativan) 0.5 MG tablet Take 1 (one) tablet by mouth 3 times daily as needed for Anxiety 90 tablet 01/14/2024 02/14/2024 oxyBUTYnin CR 24hr (Ditropan XL) 15 MG tabletIndications:Anastasiya galicia neoplasm of urinary bladder, unspecified site (HCC),Bladder spasms,Urinary frequency Take 1 (one) tablet by mouth once daily 90 tablet 4 11/01/2023 09/01/2024 pantoprazole EC (PROTONIX) 40 MG tabletIndications:need follow up visit for further [phone] option 1 Take 1 (one) tablet by mouth once daily Reasons: need follow up visit for further [phone] option 1 90 tablet 3 01/23/2022 06/15/2024 Symbicort 160-4.5 MCG/ACT inhalerIndications:Sta ge 2 moderate COPD by GOLD classification ([facility]) INHALE 2 PUFFS BY MOUTH TWICE DAILY [...] List Diagnosis Date Noted ??? CAD in cheesh-na artery 10/24/2020 Priority: Not Prioritized ??? PAD (peripheral artery disease) ([facility] Priority: Not Prioritized ??? MDD (recurrent major depressive disorder) in remission ([facility]) 08/05/2018 Priority: Not Prioritized ??? GIOVANNY (generalized [...] condition 01/09/2017 ??? Chronic obstructive pulmonary disease ([facility]) 01/09/2017 ??? Personal history of traumatic brain injury 01/09/2017 Reports brief LOC. Age 17. ??? Restless legs syndrome 01/01/2017 ??? Obstructive sleep apnea 01/01/2017 ??? Cervicalgia 04/28/2015 ??? Other chronic pain 04/28/2015 Past Medical History: Diagnosis Date ??? Anxiety ??? Asthma ??? Atherosclerosis of coronary artery ??? Bladder cancer ([facility]) ??? Cardiac dysrhythmia afib ??? Chest pain pain 12/9 ??? Chronic obstructive pulmonary disease (COPD) ([facility]) ??? Depression ??? Essential hypertension ??? GERD (gastroesophageal reflux disease) ??? History of diabetes mellitus ??? Obesity ??? Peripheral vascular disease ([facility]) stents in both legs ??? Pure hypercholesterolemia ??? Sleep apnea does not use CPAP ??? Snoring ??? TIA (transient ischemic attack) Past Surgical History: Procedure Laterality Date ??? Cholecystectomy 2006 ??? CYSTOSCOPY Left 12/07/2023 Left; LEFT RETROGRADE PYELOGRAM ??? HX C SECTION CLASSIC 1989 ??? HX CAROTID ENDARDECTOMY 2014 ??? HX TUBAL LIGATION 1989 ??? OTHER SURGERY excision of anal warts ??? OR FOOT/TOES SURGERY PROC UNLISTED ??? TRANS URETHRAL [...] IN EACH NOSTRIL ONCE DAILY ??? HYDROcodone-acetaminophen (Diamondville) 5-325 MG tablet Take 1 (one) tablet [...] Reasons: need follow up visit for further [phone] option 1 (Patient not taking: Reported on 01/17/2024) 90 tablet 3 ??? sotalol (Betapace) 80 MG tablet Take 1.5 (one and one-half) tablets by mouth every 12 hours ??? Symbicort 160-4.5 MCG/ACT inhaler INHALE 2 PUFFS BY MOUTH TWICE DAILY (Patient not taking: Reported on 01/06/2024) 10.2 g 0 ??? 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 Recent Labs Component Name 10/06/21 1600 PROT 6.7 ALB 3.3* TBILI 0.2 AST 11 ALT 16 ALKPHOS 78 Recent Labs Component Name 10/21/20 0812 INR 1.0 No results for input(s): PHART , PO2ART , CIU5AUW , BEART in the last 13415 hours. Lab results smartLinks are not currently [...] Argueta MD Urology Resident 01/17/2024 6:25 AM ENT SERVICES 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 documented in this encounter OR Notes * [...] Kenan Argueta MD - Resident - Assisting Environmental Designer(s): Mariana Zamora MD Anesthesia Type: MAC Complications: [...] implants in log * Kenan Argueta MD ENT SERVICES 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 * Operative - Kenan Argueta MD - [...] widely patent and able to accommodate a 5-St Helenian open-ended catheter easily. Retrograde pyelogram demonstrating mild [...] normal sterile fashion.Timeout was then performed. A 22-St Helenian rigid cystoscope was used to enter the [...] cannulated the left ureteral orifice with a 5-St Helenian open-ended catheter rather easily. Contrast was injected. [...] cold cup biopsy forceps, we biopsied this area.The area was fulgurated with Bugbee cautery. Hemostasis was achieved. The biopsy was sent for analysis. Bladder was drained. This concluded the procedure. The patient tolerated the procedure well andwas transferred to PACU in stable condition. Dr. Oliver was present and participated in the procedure. PLAN: The patient will be discharged today. She will follow up in 3 months for surveillance cystoscopy and a renal scan prior to this appointment. We will call her with pathology results. MD Jose Calderon MD JO/ralf .[id number] .[id number] Doc ID: [id number] Voice Job ID: [id number] ENT SERVICES 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 Associated attestation - Jose Oliver MD - 01/17/2024 10:07 AM STUDENT SERVICES 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 I was present for the entire procedure. documented in this encounter Plan of Treatment Upcoming Encounters Date Type Department Care Team (Late st Contact Info) Description 01/19/2025 11:30 AM STUDENT SERVICES 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 Procedure visit [facility] - Urology [address] [place] [address] [address] [place] [phone] Jose Oliver MD [address] [place] [phone] documented as of this encounter Goals Goal [...] [place] CYSTO SURGERY Routine 01/17/2024 7:04 PM STUDENT SERVICES 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 Other hydronephrosis GLUCOSE - POINT OF CARE Routine 01/17/2024 8:30 AM STUDENT SERVICES 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 PATHOLOGY TISSUE Routine 01/17/2024 8:11 AM STUDENT SERVICES 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 Other hydronephrosis OR CYSTOURETHROSCOP Y,URETER CATHETER 01/17/2024 7:44 AM STUDENT SERVICES 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 Other hydronephrosis Case Notes Reviewed 01/12 GLUCOSE - POINT OF CARE Routine 01/17/2024 6:02 AM STUDENT SERVICES 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 documented in this encounter Results * NM [...] kidney. > Dictated by Margi Brooke MD (Casino Floor Walker) 04/20/2024 9:43 AM ISamira DO have personally reviewed and interpreted this examination/study. > Interpreting Provider: Samira Tariq DO on 04/20/2024 3:39 PM Narrative 04/20/2024 3:39 PM CDT PROCEDURE: ??NM RENAL SCAN W DRUG, DATE/TIME OF EXAM: ??04/20/2024 9:58 AM, LOCATION ??[facility] INDICATION: N13.39: Other hydronephrosis [...] DATE/TIME OF EXAM: 04/20/2024 9:58 AM, LOCATION [facility] INDICATION: N13.39: Other hydronephrosis [...] kidney. > Dictated by Margi Brooke MD (Casino Floor Walker) 04/20/2024 9:43 AM I, Samira Tariq DO have personally reviewed and interpreted this examination/study. > Interpreting Provider: Samira Tariq DO on 04/20/2024 3:39 PM Jose Oliver MD NM ORDERABLES * FL CYSTO SURGERY (01/17/2024 7:04 PM STUDENT SERVICES 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) Narrative [facility] - 01/17/2024 7:04 PM STUDENT SERVICES 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 Fluoroscopy was used for this exam in the OR. Please see the Operative report. Jose Oliver MD FLUOROSCOPY ORDERA BLES Performing Organization Address City/[facility]/ZIP Co de Phone Number [facility] * (ABNORMAL) GLUCOSE - POINT OF CARE (01/17/2024 8:30 AM STUDENT SERVICES 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) Glucose WB/POC 128(H) 70 - 115 mg/dL 01/17/2024 8:34 AM STUDENT SERVICES 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 [facility] Specimen Type Cap Fingerstick 2023 8:34 AM STUDENT SERVICES 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 [facility] Blood BLOOD SPECIMEN / Unknown 01/17/2024 8:30 AM STUDENT SERVICES 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 01/17/2024 8:34 AM STUDENT SERVICES 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 Jose Oliver MD LAB - POINT OF CAR E ORDERABLES [facility] [address] [place] [address], [facility] [phone] * PATHOLOGY TISSUE (01/17/2024 8:11 AM STUDENT SERVICES 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) Case Report Surgical Pathology Report ? Case: [id number] ? Authorizing Provider: ??Jose Oliver MD ?Collected: ? 01/17/2024 08:11 AM ? Ordering Location: ? [facility] ?Received: ?01/17/2024 09:50 AM ? Pathologist: ? Nicole Glaser MD ? Specimen: ?Bladder Biopsy, bladder biopsy ? 01/18/2024 12:34 PM [facility] Final Diagnosis Bladder, biopsy (A): - Benign urothelial mucosa with submucosal chronic inflammation - Muscularis propria not present 01/18/2024 12:34 PM [facility] Microscopic Description and Comment Microscopic examination substantiates the final diagnosis. 01/18/2024 12:34 PM [facility] Clinical History This patient is a 63-year-old woman with history of recurrent non-muscle invasive bladder cancer (last biopsy negative, [id number]) who presented for cystoscopy with biopsy of right lateral wall erythematous mounding. 01/18/2024 12:34 PM [facility] Gross Description The requisition and specimen(s) are identified with the patient's name, Arnold Cruz. Received in formalin, specimen A , is a single pink biopsy, 0.5 x 0.4 x 0.3 cm, submitted in toto in cassette A1. GW 01/18/2024 12:34 PM [facility] Pathologist Location at [facility] 01/18/2024 12:34 PM [facility] Disclaimer The performance characteristics of all immunohistochemical and indirect immunofluorescence stains (if any) cited in this report were determined by the Histopathology Laboratory of [facility]. Some of these tests were developed by [...] the attending (teaching) pathologist. 01/18/2024 12:34 PM [facility] Embedded Images 01/18/2024 12:34 PM [facility] Biopsy, Excision URINARY BLADDER BIOPSY SPECIMEN / Unknown 01/17/2024 8:11 AM STUDENT SERVICES 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 01/17/2024 9:50 AM STUDENT SERVICES 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 Comment:Pre-op diagnosis: Other hydronephrosis Jose Oliver MD LAB - PATHOLOGY/CY TOLOGY ORDERABLES [facility] [address] [place] [address], [facility] [phone] * (ABNORMAL) GLUCOSE - POINT OF CARE (01/17/2024 6:02 AM STUDENT SERVICES 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) Glucose WB/POC 134(H) 70 - 115 mg/dL 01/17/2024 6:22 AM [facility] Specimen Type Venous 01/17/2024 6:22 AM [facility] Blood BLOOD SPECIMEN / Unknown 01/17/2024 6:02 AM STUDENT SERVICES 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 01/17/2024 6:22 AM STUDENT SERVICES 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 Jose Oliver MD LAB - POINT OF CAR E ORDERABLES [facility] [address] [phone], [facility] [phone] documented in this encounter Visit Diagnoses Diagnosis Other hydronephrosis- Primary Other hydronephrosis documented in this encounter Administered Medications Inactive Administered Medications - up to 3 most recent administrations Medication Order [facility] Action Action Date Dose Rate Site albuterol [...] MAR., PACU $ Given 01/17/2024 8:40 AM STUDENT SERVICES 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 50 mcg $ Given 01/17/2024 8:25 AM STUDENT SERVICES 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 50 mcg glycopyrrolate (Robinul) injection 0.2 mg [...] 180, DBP greater than 100., PACU HYDROcodone-acetaminophen ([place]) 5-325 MG tablet 1 tablet 1 tablet, [...] the MAR. $ Given 01/17/2024 9:12 AM STUDENT SERVICES 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 1 tablet HYDROmorphone (Dilaudid) injection 0.5 mg [...] must be documented in the MAR., PACU labetalol (Normodyne; Trandate) injection 5 mg 5 [...] Pre-op $ New Bag/Syringe 01/17/2024 5:58 AM STUDENT SERVICES 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 20 mL/hr metoclopramide (Reglan) injection 10 mg [...] Recently Administered Medications Times are shown in STUDENT SERVICES 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. Scheduled Medication Order 01/15/2024 01/16/2024 01/17/2024 albuterol [...] 180, DBP greater than 100., PACU HYDROcodone-acetaminophen ([place]) 5-325 MG tablet 1 tablet (COMPLETED)(Linked Group [...] PACU Linked Groups Order Group 1: HYDROcodone-acetaminophen ([place]) 5-325 MG tablet 1 tablet (COMPLETED)Jump to [...] be documented in the MAR. Or HYDROcodone-acetaminophen ([place]) 5-325 MG tablet 2 tablet (COMPLETED) 2 [...] MAR. documented in this encounter Care Teams Dam Tender Relationship Specialty Start Date End Date Deisi Andrews MD [address] [place] [phone] PCP - General Family Medicine 05/26/23 10/26/24 documented as of this encounter
--- OUTSIDE RECORDS SUMMARY | 2024-11-12 04:42 | XMS_ITS | Encounter Summary ---
Author Organization [facility] Address [address] [facility] [place] [address] Care Team Providers Care Toddler Guide Name Role Phone Deisi Andrews MD Primary Care Provider [phone] Reason for Visit * Radiology Services (Routine) - Closed Specialty Diagnoses / Procedures Referred By Nacho brooks Referred To Contact Nuclear Medicine Diagnoses Other hydronephrosis Procedures NM RENAL SCAN W DRUG Jose Oliver MD [address] [place] [address] 2L [place] [address] [facility] Nuclear Medicine [address] [place] [phone] Referral ID Status Reason Start Date Expiration Date Visits Re quested Visits Authorized [id number] Closed 04/18/2024 04/18/2025 1 1 Encounter Details Date Type Department Care Team (Latest Contact Info) Description 04/20/2024 9:34 AM CDT - 04/20/2024 11:59 PM CDT Hospital Encounter [facility] [address] [place] [phone] Jose Oliver MD [facility] 2L [place] [address] Discharge Disposition: Home or Self [...] ge 2 moderate COPD by GOLD classification ([facility]) Inhale 2 (two) puffs by mouth [...] by mouth once daily 90 tablet 12/08/2021 metFORMIN (GLUCOPHAGE) 500 MG tablet Take [...] 12 hours 10/28/2023 vitamin D, ergocalciferol, (DRISDOL) 50659 UNITS capsule Take 1 (one) capsule by [...] gnant neoplasm of urinary bladder, unspecified site ([facility]),Bladder spasms,Urinary frequency Take 1 (one) tablet by mouth once daily 90 tablet 4 11/01/2023 09/01/2024 pantoprazole EC (PROTONIX) 40 MG tabletIndications:need follow up visit for further [phone] option 1 Take 1 (one) tablet by mouth once daily Reasons: need follow up visit for further [phone] option 1 90 tablet 3 01/23/2022 06/15/2024 Symbicort 160-4.5 MCG/ACT inhalerIndications:Sta ge 2 moderate COPD by GOLD classification ([facility]) INHALE 2 PUFFS BY MOUTH TWICE DAILY 10.2 g 07/07/2023 06/15/2024 documented as of this encounter Plan of Treatment Upcoming Encounters Date Type Department Care Team (Late st Contact Info) Description 01/19/2025 11:30 AM LINOTYPE OPERATOR Procedure visit [facility] - Urology [address] [place] [address] [address] [place] [address] Jose Oliver MD [address] [place] [phone] documented as of this encounter Goals Goal [...] CDT Other hydronephrosis documented in this encounter Visit Diagnoses Not on filedocumented in this encounter Administered Medications Inactive Administered Medications - up to 3 most recent administrations Medication Order MAR Action Action Date Dose Rate Site furosemide (Lasix) injection 40 mg 40 mg, Intravenous, ONCE, 1 dose, On [place] 04/20/24 at 1015 $ Given 04/20/2024 9:55 AM CDT 40 mg documented in this encounter Care Teams Toddler Guide Relationship Specialty Start Date End Date Deisi Andrews MD [address] [place] [address] [place] [address] PCP - General Family Medicine 05/26/23 10/26/24 documented as of this encounter
--- OUTSIDE RECORDS SUMMARY | 2024-11-12 04:42 | XMS_ITS | Encounter Summary ---
Author Organization [facility] Address [address] [place] [address] Care Team Providers Care Prosecuting Attorney Name Role Phone Deisi Andrews MD Primary Care Provider [phone] Encounter Details Date Type Department Care Team (Late st Contact Info) Description 01/11/2024 Orders Only [facility] Urology [address] [facility] [place] [phone] Monica Magallon LPN Other hydronephrosis ; Pre-op [...] Progress Notes * Monica Magallon LPN - 01/11/2024 10:49 AM CST Called patient for lab reminder. Patient reports the girl told me I did not have to have a urine specimen again. Informed patient that we must have a culture result prior to surgery. Patient requests to have culture performed at [facility] in [place] on [address] Faxed order to [phone] ETING RESEARCHER documented in this encounter Plan of Treatment Upcoming Encounters Date Type Department Care Team (Late st Contact Info) Description 01/19/2025 11:30 AM MARKETING RESEARCHER Procedure visit [facility] - Urology [address] [facility] [address] [place] [address] Jose Oliver MD [facility] [place] [address] Scheduled Orders Name Type Priority Associated Diagnoses Orde r Schedule CULTURE URINE Microbiology Routine Pre-op testing Malignant neoplasm of urinary bladder, unspecified site (HCC) Other hydronephrosis Ordered: 01/11/2024 documented as of this encounter Goals Goal [...] (HCC) documented in this encounter Care Teams Prosecuting Attorney Relationship Specialty Start Date End Date Deisi Andrews MD [address] [place] [address] [place] [address] PCP - General Family Medicine 05/26/23 10/26/24 documented as of this encounter
--- OUTSIDE RECORDS SUMMARY | 2024-11-12 04:42 | XMS_ITS | Encounter Summary ---
Author Organization [facility] Address [address] [facility] [place] [facility] [place] [address] Care Team Providers Care Master Baker Name Role Phone Deisi Andrews MD Primary Care Provider [phone] Reason for Visit * Auth/Cert (Routine) Specialty Diagnoses / Procedures Referred By Nacho brooks Referred To Contact Diagnoses Malignant neoplasm of urinary bladder, unspecified site (HCC) Malignant neoplasm of urinary bladder, unspecified site (HCC) Procedures ME CYSTO/URETERO/PYELOSCOPY W/BX ME URETERAL REFLUX STUDY CYSTOSCOPY WITH BIOPSY CYSTOGRAM Referral ID Status Reason Start Date Expiration Date Visits Re quested Visits Authorized [id number] 1 1 Encounter Details Date Type Department Care Team (Late st Contact Info) Description 06/21/2024 8:45 AM CDT - 06/21/2024 10:45 AM CDT Surgery [facility] [address] [place] [address] Jose Oliver MD [address] [facility] 2L DIV [place] [phone] CYSTOSCOPY, BLADDER BIOPSY Surgery Details Date/Time Status Location OR Service Patient Class Case Class Case Type Trauma Case? 06/21/2024 8:45 AM Posted [facility] OR OR 07 Urology Surgery Day Care Elective > 5 days Panel 1 Procedure LRB Anes Op Region Wound Class Comments CYSTOSCOPY, BLADDER BIOPSY N/A Anesthesia to Decide Bladder Clean Contaminated CYSTOGRAM N/A Anesthesia to Decide Clean Con taminated Surgeon Surgeon Role Service Panel Jose Oliver MD Primary Urology 1 Case Notes Reviewed SM 06/19 documented in this encounter Social History Tobacco [...] Sign Reading Time Taken Comments Blood Pressure 122/85 06/21/2024 10:30 AM CDT Pulse 61 06/21/2024 10:30 AM CDT Temperature 36.6 ??C (97.9 ??F) 06/21/2024 10:30 AM C DT Respiratory Rate 12 06/21/2024 10:30 AM CDT Oxygen Saturation 97% 06/21/2024 10:30 AM CDT Inhaled Oxygen Concentration 21% 06/21/2024 [...] from the original note were not included. [facility] You had a procedure called [...] cancel or reschedule the appointment please call [phone]. We will call with path results in 1-2 weeks. The [facility] is located at [address], [address], [place] [address]. The phone number to clinic is [phone] if you need to cancel or re-schedule. [...] prescribed narcotic pain medication such as Oxycodone, Steen, or Tramadol. This should be taken as needed for severe pain only. Do not drink alcohol, drive, or operate heavy machinery while taking this type of medication. If the narcotic is Steen, please understand that Steen has Tyelonol in it. If you are [...] the recovery process, please contact [facility] Urology [phone] (Option #1: scheduling, Option #2 Nurse line, Option #3 surgery scheudler, Option#4 administration) on weekdays during regular business hours. If you have an urgent or emergent question on a weekend or after regular business hours, please contact [facility] at [phone] and ask for the provider director of construction for Urology. 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 [...] Reasons: need follow up visit for further [id number] option 1 (Patient not taking: Reported on 01/17/2024) 90 tablet 3 sotalol (Betapace) 80 MG tablet Take 1.5 (one and one-half) tablets by mouth every 12 hours Symbicort 160-4.5 MCG/ACT inhaler INHALE 2 PUFFS BY MOUTH TWICE DAILY (Patient not taking: Reportedon 01/06/2024) 10.2 g 0 vitamin D, ergocalciferol, (DRISDOL) 85995 UNITS capsule Take 1 (one) capsule by [...] Ref Range Status 05/05/2024 neg Final Specific [place] UA Date Value Ref Range Status 05/05/2024 1.025 Final Nitrite UA Date Value Ref Range Status 05/05/2024 neg Final Mirco: No results for input(s): URINECULT in the last 32585 hours. Pathology: Collected 01/17/2024 08:11 Status: Final [...] obtained and placed in chart. Florida Knutson APRN-FISH PROCESSING SUPERVISOR 06/21/2024 7:49 AM documented in this encounter [...] Role: * Jose Oliver MD - Primary Manufacturing Engineer Automotive(s): Vivek Scott MD - resident assisting Anesthesia [...] draped in sterile fashion. We took a 22-Paraguayan cystoscope and placed this through the urethra [...] then performed a cystogram. We placed a 16-Paraguayan catheter with 10 mL of water in [...] condition. I was present entire procedure. MD KAPIL Craig/kir .[id number] Doc ID: [id number] Voice Job ID: [id number] documented in this encounter Plan of Treatment Upcoming Encounters Date Type Department Care Team (Late st Contact Info) Description 01/19/2025 11:30 AM DIVISION SUPERINTENDENT Procedure visit [facility] - Urology [address] [place] [address] [address] [place] [address] Jose Oliver MD [facility] OF [place]IC [place] [address] documented as of this encounter Goals Goal [...] neoplasm of urinary bladder, unspecified site (HCC) ME URETERAL REFLUX STUDY 06/21/2024 9:03 AM CDT Malignant neoplasm of urinary bladder, unspecified site (HCC) Case Notes Reviewed 06/19 ME CYSTO/URETERO/GEORGES LOSCOPY W/BX 06/21/2024 9:03 AM CDT Malignant neoplasm of urinary bladder, unspecified site (HCC) Case Notes Reviewed 06/19 GLUCOSE - POINT OF CARE Routine 06/21/2024 8:10 AM CDT PTT [facility] Routine 06/21/2024 8:07 AM CDT PAD (peripheral artery disease) (HCC) PT-INR [facility] STAT 06/21/2024 8:07 AM CDT PAD (peripheral artery disease) (HCC) documented in this encounter Results * [place] Cysto Surgery (06/21/2024 9:46 PM CDT) Narrative [facility] RADIOLOGY - 06/21/2024 9:46 PM CDT Fluoroscopy was used for this exam in the OR. Please see the Operative report. Jose Oliver MD FLUOROSCOPY KALIN BARBER [facility] * PATHOLOGY TISSUE (06/21/2024 10:01 AM CDT) Case Report Surgical Pathology Report ? Case: [id number] ? Authorizing Provider: ??Jose Oliver MD ?Collected: ? 06/21/2024 10:01 AM ? Ordering Location: ? [facility] ?Received: ?06/21/2024 01:25 PM ? Pathologist: ? Nicole Glaser MD ? Specimens: ?? A) - Bladder Biopsy, 1. right floor bladder ? B) - Bladder Biopsy, 2. Right posterior wall ? 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 Ki-67 stains the majority of urothelial cells, including cells at the surface, supporting a diagnosis of carcinoma in situ 06/23/2024 8:22 AM [facility] Clinical History The patient is a 63 year old woman with history of bladder cancer, now with 2 areas of mild bleeding and mild inflammation noted that were biopsied along the right bladder floor and posterior lateral wall. 06/23/2024 8:22 AM [facility] Gross Description The requisition [...] in cassette B1. DF 06/23/2024 8:22 AM [facility] Pathologist Location at [facility] 06/23/2024 8:22 AM [facility] Disclaimer The performance characteristics of all immunohistochemical and indirect immunofluorescence stains (if any) cited in this report were determined by the Histopathology Laboratory of [facility]. Some of these tests were developed [...] the attending (teaching) pathologist. 06/23/2024 8:22 AM [facility] Embedded Images 06/23/2024 8:22 AM [facility] Biopsy, Excision URINARY BLADDER BIOPSY SPECIMEN / Unknown 06/21/2024 10:01 AM CDT 06/21/2024 1:25 PM CDT Comment:Pre-op diagnosis: Malignant neoplasm of urinary bladder, unspecified site (HCC) Biopsy, Excision URINARY BLADDER BIOPSY SPECIMEN / Unknown 06/21/2024 10:06 AM CDT 06/21/2024 1:25 PM CDT Comment:Pre-op diagnosis: Malignant neoplasm of urinary bladder, unspecified site (HCC) Jose Oliver MD LAB - PATHOLOGY/CY TOLOGY ORDERABLES [facility] [address] [facility] [place] [address], [facility] [phone] * (ABNORMAL) GLUCOSE - POINT OF CARE (06/21/2024 8:10 AM CDT) Glucose WB/POC 149(H) 70 - 115 mg/dL 06/21/2024 8:47 AM CDT [facility] Specimen Type Venous 06/21/2024 8:47 AM CDT [facility] Blood BLOOD SPECIMEN / Unknown 06/21/2024 8:10 AM CDT 06/21/2024 8:47 AM CDT Jose Oliver MD LAB - POINT OF CAR E ORDERABLES Performing Organization Address City/[facility]/ZIP Co de Phone Number [address] [address], [facility] [phone] * PTT [facility] (06/21/2024 8:07 AM CDT) APTT 26.7 23.0 - 38.4 Seconds 06/21/2024 8:35 AM CDT [facility] Comment:Suggested therapeuti c range for full dose I.V. unfractionated heparin therapy for venous thromboembolism is 71 to 109 seconds. Blood BLOOD SPECIMEN / Unknown Venipuncture / Unknown 06/21/2024 8:07 AM CDT 06/21/2024 8:09 AM CDT Jose Oliver MD LAB - COAGULATION ORDERABLES [address] [address], [facility] [phone] * PT-INR [facility] (06/21/2024 8:07 AM CDT) PT 12.7 12.1 - 14.8 Seconds 06/21/2024 8:35 AM CDT [facility] INR 1.0 See Comment 06/21/2024 8:35 AM CDT [facility] Comment:The suggested therap eutic range for standard coumadin (warfarin) therapy is an INR of 2.0-3.0. For high-risk patients (Mechanical Mitral Valve Prosthesis, etc.), the suggested prophylactic therapeutic range is an INR of 2.5-3.5. Blood BLOOD SPECIMEN / Unknown Venipuncture / Unknown 06/21/2024 8:07 AM CDT 06/21/2024 8:09 AM CDT Jose Oliver MD LAB - COAGULATION ORDERABLES [address] [address], [facility] [phone] documented in this encounter Visit Diagnoses Diagnosis PAD (peripheral artery disease) (HCC)- Primary Unspecified disorders of arteries and arterioles CAD in [place] artery Coronary atherosclerosis of [place] coronary artery Nocturia Malignant neoplasm of urinary [...] 0942 ($ New Bag/Syri nge - Provider: Tita Catalan APRN-BUSINESS CHANGE MANAGER) Continuous Medication Order 06/19/2024 06/20/2024 06/21/2024 lactated [...] Pre-op documented in this encounter Care Teams Master Baker Relationship Specialty Start Date End Date Deisi Andrews MD [address] [place] [address] [place] [phone] PCP - General Family Medicine 05/26/23 10/26/24 documented as of this encounter
--- OUTSIDE RECORDS SUMMARY | 2024-11-12 04:42 | XMS_ITS | Encounter Summary ---
Author Organization [facility] Address [address] [facility] [place] [address] Care Team Providers Care Machine Wood Sander Name Role Phone Deisi Andrews MD Primary Care Provider [phone] Encounter Details Date Type Department Care Team (Latest Contact Info) Description 02/28/2024 Travel Social History Tobacco Use Types Packs/Day [...] st Contact Info) Description 01/19/2025 11:30 AM AD OPERATIONS ASSOCIATE Procedure visit [facility] [address] [facility] [address] [place] [address] Jose Oliver MD [address] [facility] 2L [facility] [place] [address] documented as of this encounter Goals Goal [...] on filedocumented in this encounter Care Teams Machine Wood Sander Relationship Specialty Start Date End Date Deisi Andrews MD [address] [place] [address] [place] [address] PCP - General Family Medicine 05/26/23 10/26/24 documented as of this encounter
--- OUTSIDE RECORDS SUMMARY | 2024-11-12 04:42 | XMS_ITS | Encounter Summary ---
Author Organization [facility] Address [address] [facility] [place] [address] Care Team Providers Care Clinical Resource Coordinator Name Role Phone Deisi Anrdews MD Primary Care Provider [phone] Reason for Referral * PT/OT/ST (Routine) - Closed Specialty Diagnoses / Procedures Referred By Nacho t Referred To Contact Physical Therapy Diagnoses Malignant neoplasm of urinary bladder, unspecified site (HCC) Jose Oliver MD [address] [place] [address] 2L [place] [address] [facility] [address] [place] [address] Referral ID Status Reason Start Date Expiration Date V isits Requested Visits Authorized [id number] Closed Specialty Services Required 05/05/2024 05/05/2025 1 1 Reason for Visit * Reason Comments Cystoscopy Encounter Details Date Type Department Care Team (Latest Contact Info) Description 05/05/2024 11:30 AM CDT Procedure visit [facility] - Urology [address] [place] [address] [address] [place] [address] Jose Oliver MD [facility] [facility] 2L [place] [address] Malignant neoplasm of urinary bladder, unspecified site (HCC) ; Other hydronephrosis Social History Tobacco Use Types [...] Sign Reading Time Taken Comments Blood Pressure 142/85 05/05/2024 11:26 AM CDT Pulse 84 05/05/2024 11:26 AM CDT Temperature 36.6 ??C (97.8 ??F) 05/05/2024 11:26 AM C DT Respiratory Rate - - Oxygen Saturation 94% 05/05/2024 11:26 AM CDT Inhaled Oxygen Concentration - - Weight 84.8 kg (187 lb) 05/05/2024 11:26 AM CDT Height 160 cm (5' 3 ) 05/05/2024 11:26 AM CDT Body Mass Index 33.13 05/05/2024 11:26 AM CDT documented in this encounter Functional [...] No 01/17/2024 documented as of this encounter Procedure Notes * Jose Oliver MD - 05/05/2024 11:46 AM CDT Images from the original note were not included. Urologic Surgery Cystoscopy Note Date of Operation: 05/05/2024 Preoperative Diagnosis: bladder cancer Postoperative Diagnosis: same Surgeon: Jose Oliver MD Resident(s): Estuardo Argueta MD Procedure Performed: 1) Cystoscopy Findings: 1) papillary changes, right low posterior and lateral Anesthesia: Local lidocaine jelly per urethra Implant/Drains: none Specimen(s): none Estimated Blood Loss: minimal Complications: none Indications [...] normal Last tumor: 01/2022 Last imagin10/2023 CTU Today, patient notes left flank dull ache, despite appearance of NM renal scan. She complains of significant incontinence, some unconscious. Procedure in Detail: The patient was properly [...] dome. Retroflexion of the scope was performed. There were erythematous papillary changes along the low right posterior and lateral wall, ~2cm in size. The left ureter appeared widely patent. The scope was removed and urethra re-inspected. There were no significant complications and the patient tolerated the procedure. The cystoscope wasin proper working condition at the end of the procedure. I, Jose Oliver MD, was present during the entire procedure. Follow Up: Plan on cystoscopy, bladder biopsy, cystogram Pelvic floor PT referral oJse Oliver MD 05/05/2024 11:46 AM Low risk: first scope 6-9 months, then annual surveillance for 5 years Int risk: first scope at 3 months, then every 3-6 months for 2 years, 6-12 months for years 3 and 4, then annually thereafter High risk: first scope at 3 months, then every 3 months for 2 years, every 6 months for years 3 and4, then annually thereafter documented in this encounter Plan of Treatment Upcoming Encounters Date Type Department Care Team (Late st Contact Info) Description 01/19/2025 11:30 AM TECHNICAL SUPPORT ASSOCIATE Procedure visit [facility] - Urology [address] [place] [address] [address] [place] [address] oJse Oliver MD [facility] [place] [address] Scheduled Referrals Name Type Priority Associated Diagnoses Orde r Schedule Ref to PT Sports Med at [facility] Outpatient Referral Routine Malignant neoplasm of urinary bladder, unspecified site (HCC) Ordered: 05/05/2024 documented as of this encounter Goals Goal [...] - POINT OF CARE (AMB) [facility] Routine 05/05/2024 11:40 AM CDT Other hydronephrosis documented in this encounter Results * URINALYSIS AUTO - POINT OF CARE (AMB) [facility] (05/05/2024 11:40 AM CDT) Glucose UA neg [facility] [address] Bilirubin UA POCT neg [facility] [address] Ketones UA POCT neg [facility] [address] Specific [place] UA 1.[address] [facility] [address] Blood Urine POCT neg [facility] [address] pH UA 6.0 [facility] [address] Protein UA +- [facility] [address] Comment:15mg Urobilinogen UA 0.2 [facility] [address] Nitrite UA neg [facility] [address] WBC UA +- [facility] [address] Comment:15Leu/uL Urine URINE / Unknown 05/05/2024 1 1:40 AM CDT Jose Oliver MD LAB - POINT OF CAR E ORDERABLES LIN [address] [facility] [address] [facility] [place] [address] [phone] documented in this encounter Visit Diagnoses Diagnosis Malignant neoplasm of urinary bladder, unspecified site (HCC)- Primary Other hydronephrosis documented in this encounter Care Teams Clinical Resource Coordinator Relationship Specialty Start Date End Date Deisi Andrews MD [address] [place] [address] PCP - General Family Medicine 05/26/23 10/26/24 documented as of this encounter
--- OUTSIDE RECORDS SUMMARY | 2024-11-12 04:42 | XMS_ITS | Encounter Summary ---
Author Organization [facility] Address [address] [facility] [address] [place] [address] Care Team Providers Care Transplant Surgeon Name Role Phone Deisi Andrews MD Primary Care Provider [phone] Encounter Details Date Type Department Care Team (Latest Contact Info) Description 08/04/2024 Travel Social History Tobacco Use Types Packs/Day [...] st Contact Info) Description 01/19/2025 11:30 AM LMSW Procedure visit [facility] [address] [facility] [address] [place] [address] Jose Oliver MD [address] [facility] 2L [facility] [place] [address] documented as of this encounter Goals Goal [...] on filedocumented in this encounter Care Teams Transplant Surgeon Relationship Specialty Start Date End Date Deisi Andrews MD [address] [place] [address] [place] [address] PCP - General Family Medicine 05/26/23 10/26/24 documented as of this encounter
--- OUTSIDE RECORDS SUMMARY | 2024-11-12 04:42 | XMS_ITS | Encounter Summary ---
Author Organization [facility] Address [address] [facility] [place] [address] Care Team Providers Care Time Study Engineer Name Role Phone Deisi Andrews MD Primary Care Provider [phone] Encounter Details Date Type Department Care Team (Latest Contact Info) Description 01/17/2024 Travel Social History Tobacco Use Types Packs/Day [...] st Contact Info) Description 01/19/2025 11:30 AM GROUND WATER TECHNICIAN Procedure visit [facility] [address] [facility] [address] [place] [address] Jose Oliver MD [address] [facility] [address] [facility] [place] [address] documented as of this encounter Goals Goal [...] on filedocumented in this encounter Care Teams Time Study Engineer Relationship Specialty Start Date End Date Deisi Andrews MD [address] [place] [address] [place] [address] PCP - General Family Medicine 05/26/23 10/26/24 documented as of this encounter
--- OUTSIDE RECORDS SUMMARY | 2024-11-12 04:42 | XMS_ITS | Encounter Summary ---
Author Organization [facility] Address [address] [place] [address] Care Team Providers Care Facilities Manager Name Role Phone Deisi Andrews MD Primary Care Provider [phone] Encounter Details Date Type Department Care Team (Latest Contact Info) Description 06/28/2024 Travel Social History Tobacco Use Types Packs/Day [...] st Contact Info) Description 01/19/2025 11:30 AM SENIOR PROFESSIONAL SERVICES CONSULTANT Procedure visit [facility] [address] [facility] [address] [place] [address] Jose Oliver MD [address] [facility] [address] [facility] [place] [address] documented as of this encounter Goals Goal [...] on filedocumented in this encounter Care Teams Facilities Manager Relationship Specialty Start Date End Date Deisi Andrews MD [address] [place] [address] [place] [address] PCP - General Family Medicine 05/26/23 10/26/24 documented as of this encounter
--- OUTSIDE RECORDS SUMMARY | 2024-11-12 04:43 | XMS_ITS | Encounter Summary ---
Author Organization [facility] Address [address] [facility] [place] [address] Care Team Providers Care Injury Prevention Coordinator Name Role Phone Neva Holden MD Primary Care Provider [phone] Reason for Visit * Reason Onset Date Comments Surgery Scheduling 12/17/2022 Encounter Details Date Type Department Care Team (Late st Contact Info) Description 12/17/2022 Telephone [facility] [address] [place] [address] Jose Oliver MD [address] [place] [address] Surgery Scheduling Social History Tobacco Use Types Packs/Day Years Used Date Smoking Tobacco: Every Day Cigarettes 0.5 40 Smokeless Tobacco: Never Comments:pt said she will qu it in 09/2021 Alcohol Use Standard Drinks/Week Comments No 0 (1 standard drink = 0.6 oz pur e alcohol) PHQ-2 Answer Date Recorded PHQ2 TOTAL SCORE 1 08/17/2022 Sex and Gender Information Value Date Recorded Sex Assigned at Not on file Gender Identity Not on file Sexual Orientation Not on file documented as of this encounter Miscellaneous Notes * Telephone Encounter - Virgen Piña - 12/17/2022 12:20 PM CST Attempted to schedule surgery again. Left Voicemail to return call. Virgen Piña 12/17/2022 12:20 PM SAFETY DIRECTOR documented in this encounter Plan of Treatment Upcoming Encounters Date Type Department Care Team (Late st Contact Info) Description 01/19/2025 11:30 AM MINE SAFETY DIRECTOR Procedure visit [facility] [address] [facility] [address] [place] [address] Jose Oliver MD [address] [place] [address] documented as of this encounter Goals Goal [...] on filedocumented in this encounter Care Teams Injury Prevention Coordinator Relationship Specialty Start Date End Date Neva Holden MD [address] [place] [phone] PCP - General 05/06/20 05/25/23 documented as of this encounter
--- OUTSIDE RECORDS SUMMARY | 2024-11-12 04:43 | XMS_ITS | Encounter Summary ---
Author Organization [facility] Address [address] [facility] [place] [address] Care Team Providers Care Class C Truck Driver Name Role Phone Neva Holden MD Primary Care Provider [phone] Encounter Details Date Type Department Care Team (Latest Contact Info) Description 12/31/2021 Travel Social History Tobacco Use Types Packs/Day Years Used Date Smoking Tobacco: Every Day Cigarettes 1 40 Smokeless Tobacco: Never Comments:pt said she will qu it in 09/2021 Alcohol Use Standard Drinks/Week Comments No 0 (1 standard drink = 0.6 oz pur e alcohol) Sex and Gender Information Value Date Recorded Sex Assigned at Not on file Gender Identity Not on file Sexual Orientation Not on file COVID-19 Exposure Response Date Recorded In the last month, have you been in contact with someone who was confirmed or suspected to have Coronavirus / COVID-19? No / Unsure 12/31/2021 8:43 AM FARM EQUIPMENT ASSEMBLER documented as of this encounter Plan of Treatment Upcoming Encounters Date Type Department Care Team (Late st Contact Info) Description 01/19/2025 11:30 AM FARM EQUIPMENT ASSEMBLER Procedure visit [facility] [address] [place] [address] [address] [place] [phone] Jose Oliver MD [address] [place] [phone] documented as of this encounter Goals Goal [...] on filedocumented in this encounter Care Teams Class C Truck Driver Relationship Specialty Start Date End Date Neva Holden MD [address] [place] [phone] PCP - General 05/06/20 05/25/23 documented as of this encounter
--- OUTSIDE RECORDS SUMMARY | 2024-11-12 04:43 | XMS_ITS | Encounter Summary ---
Author Organization [facility] Address [address] [facility] [place] [address] Care Team Providers Care Sound Assistant Name Role Phone Neva Holden MD Primary Care Provider [phone] Reason for Visit * Reason Comments MEDICATION REFILL Encounter Details Date Type Department Care Team (Late Contact Info) Description 01/23/2022 Refill [facility] [address] [place] [address] [place] [phone] Sebastian Lombardi MD [address] [phone] MEDICATION REFILL Social History Tobacco Use Types Packs/Day Years [...] COVID-19? No / Unsure 12/31/2021 8:43 AM ARCHITECTURAL MODEL MAKER documented as of this encounter Plan of Treatment Upcoming Encounters Date Type Department Care Team (Late Contact Info) Description 01/19/2025 11:30 AM ARCHITECTURAL MODEL MAKER Procedure visit [facility] [address] [place] [address] [address] [place] [address] Jose Oliver MD [address] [place] [address] documented as of this encounter Goals Goal [...] as of this encounter Visit Diagnoses Diagnosis Gastroesophageal reflux disease without esophagitis Esophageal reflux documented in this encounter Care Teams Sound Assistant Relationship Specialty Start Date End Date Neva Holden MD [address] [place] [phone] PCP - General 05/06/20 05/25/23 documented as of this encounter
--- OUTSIDE RECORDS SUMMARY | 2024-11-12 04:43 | XMS_ITS | Encounter Summary ---
Author Organization [facility] Address [address] [place] [address] Care Team Providers Care Soil Surveyor Name Role Phone Deisi Andrews MD Primary Care Provider [phone] Encounter Details Date Type Department Care Team (Latest Contact Info) Description 05/26/2023 Travel Social History Tobacco Use Types Packs/Day [...] occasion? Never 01/18/2023 PHQ-2 Answer Date Recorded PHQ2 TOTAL SCORE 5 05/27/2023 Sex and Gender Information Value Date Recorded [...] st Contact Info) Description 01/19/2025 11:30 AM SUBSTATION SUPERVISOR Procedure visit [facility] - Urology [address] [place] [address] [address] [place] [address] Jose Oliver MD [address] [place] [address] documented as of this encounter Goals Goal [...] on filedocumented in this encounter Care Teams Soil Surveyor Relationship Specialty Start Date End Date Deisi Andrews MD [address] [place] [phone] PCP - General Family Medicine 05/26/23 10/26/24 documented as of this encounter
--- OUTSIDE RECORDS SUMMARY | 2024-11-12 04:43 | XMS_ITS | Encounter Summary ---
Author Organization [facility] Address [address] [facility] [place] [address] Care Team Providers Care Information Technology Security Manager Name Role Phone Neva Holden MD Primary Care Provider [phone] Reason for Visit * Reason Comments Refill Request Encounter Details Date Type Department Care Team (Late st Contact Info) Description 12/03/2022 Refill [facility] [address] [facility], [place] [phone] Billy Don MD [address] OF PULMONARY/[place] [address] Refill Request Social History Tobacco Use Types [...] encounter Miscellaneous Notes * Telephone Encounter - Ashlie WatersJOEY - 12/03/2022 10:37 AM CST Refill Request Rody Zaidi DARIO: 01/05/22 NOV scheduled: TBS LRF: 01/05/22 Qty Disp: 10.2 g # of refills: 5 Allergies: Allergies Allergen Reactions ??? Penicillins Other and Urticaria unknown Reaction: Hives, ??? Azithromycin Unknown ??? Risperidone Other Reported her face getting swollen ??? Statins [Hmg-Coa-R Inhibitors] Other Causes muscle tightness ??? Haloperidol Other unknown ??? Codeine Itching ??? Penicillin G Other ??? Triazolam Unknown Pended Medication Order: Requested Prescriptions Pending Prescriptions Disp Refills ??? budesonide-formoterol (Symbicort) 160-4.5 MCG/ACT inhaler [Pharmacy Med Name: BUDESONIDE/FORM 160/4.5MCG(120 INH)] 10.2 g 5 Sig: INHALE 2 PUFFS BY MOUTH TWICE DAILY Ashlie Waters MA COST ESTIMATOR documented in this encounter Plan of Treatment Upcoming Encounters Date Type Department Care Team (Late st Contact Info) Description 01/19/2025 11:30 AM JOB COST ESTIMATOR Procedure visit [facility] Urology [address] [place] [address] [address] [place] [address] Jose Oliver MD [address] [place] [address] documented as of this encounter Goals Goal [...] as of this encounter Visit Diagnoses Diagnosis Stage 2 moderate COPD by GOLD classification (HCC) documented in this encounter Care Teams Information Technology Security Manager Relationship Specialty Start Date End Date Neva Holden MD [address] [place] [phone] PCP - General 05/06/20 05/25/23 documented as of this encounter
--- OUTSIDE RECORDS SUMMARY | 2024-11-12 04:43 | XMS_ITS | Encounter Summary ---
Author Organization [facility] Address [address] [place] [address] Care Team Providers Care Pipe Bending Machine Operator Name Role Phone Deisi Andrews MD Primary Care Provider [phone] Reason for Visit * Reason Onset Date Comments Medication Request 10/28/2023 Patient wante d to know If Dr Oliver could send her some oxybutynin please Encounter Details Date Type Department Care Team ([facility] Contact Info) Description 10/28/2023 Telephone [facility] [address] [place] [address], [place] [address] Jose Oliver MD [address] [place] [address] [place] [address] Medication Request (Patient wanted to know If Dr Oliver could send her some oxybutynin please ) Social History Tobacco Use Types Packs/Day Years [...] No 01/18/2023 documented as of this encounter Miscellaneous Notes * Telephone Encounter - Raegan Armas - 10/28/2023 3:41 PM CST Patient wanted to know If Dr Oliver could send her some oxybutynin please EMENT RIDE OPERATOR documented in this encounter Plan of Treatment Upcoming Encounters Date Type Department Care Team (Late st Contact Info) Description 01/19/2025 11:30 AM AMUSEMENT RIDE OPERATOR Procedure visit [facility] [address] [place] [address] [address] [place] [address] Jose Oliver MD [address] [place] [phone] documented as of this encounter Goals Goal [...] on filedocumented in this encounter Care Teams Pipe Bending Machine Operator Relationship Specialty Start Date End Date Deisi Andrews MD [address] [place] [address] [place] [phone] PCP - General Family Medicine 05/26/23 10/26/24 documented as of this encounter
--- OUTSIDE RECORDS SUMMARY | 2024-11-12 04:43 | XMS_ITS | Encounter Summary ---
Author Organization [facility] Address [address] [facility] [place] [address] Care Team Providers Care Field Software Engineer Name Role Phone Neva Holden MD Primary Care Provider [phone] Reason for Visit * Reason Comments Follow-up Encounter Details Date Type Department Care Team (Latest Contact Info) Description 12/02/2021 8:30 AM RN HOME CARE Office Visit [facility]mology [address] [place] [phone] Tyrone Zuniga MD Blurred vision, bilateral (Primary Dx); Acute conjunctivitis, unspecified acute conjunctivitis type, unspecified laterality; Refractive error Social History Tobacco Use Types Packs/Day Years [...] have Coronavirus / COVID-19? No / Unsure 12/02/2021 9:22 AM RN HOME CARE documented as of this encounter Progress Notes * Tyrone Zuniga MD - 12/04/2021 1:15 PM CST Chief Complaint Patient presents with ??? Follow-up //Rody Zaidi is a 60 year old female was last seen 06/12/20. Patient states she has grittiness inboth eyes starting a while ago. When she had this before drops helped. Patient denies pain or flashes of light. She has floaters. She thinks she may have cataracts. Sunlight bothers her. She can see good. She is here for a diabetic check. Gtt: None BS today not checked, she is fasting for blood work. Last time checked 112 A1C 7.0 Prednisone when she was sick in October. Not on now. The following was also reviewed and updated: Current Outpatient Medications Medication Sig Dispense Refill ??? albuterol (PROVENTIL;VENTOLIN) (2.5 MG/3ML) 0.083% nebulizer solution Inhale 2.5 (two and one-half) mg by mouth every 4 hours as needed for Shortness of Breath 75 mL 0 ??? albuterol HFA (PROAIR HFA) 108 (90 Base) MCG/ACT inhaler Inhale 2 (two) puffs by mouth every 4 hours as needed 8.5 g 11 ??? ALPRAZolam (XANAX) 1 MG tablet Take 1 (one) tablet by mouth 3 times daily for 90 days Reasons: Feeling Anxious, Panic Disorder 90 tablet 2 ??? aspirin EC (ECOTRIN) 325 MG tablet ??? cetirizine (ZYRTEC) 10 MG tablet cetirizine 10 mg tablet ??? clopidogrel (PLAVIX) 75 MG tablet Take 1 tablet by mouth once daily 90 tablet 0 ??? cromolyn (CROLOM) 4 % ophthalmic solution Instill 1 drop into both eyes 3 times daily 10 mL 4 ??? cyclobenzaprine (FLEXERIL) 10 MG tablet TK 1 T PO TID PRN ??? doxycycline monohydrate 100 MG capsule Take 100 mg by mouth 2 times daily ??? EPINEPHrine (EPIPEN) 0.3 MG/0.3ML auto-injector pen epinephrine 0.3 mg/0.3 mL injection, auto-injector ??? evolocumab (REPATHA SURECLICK) 140 MG/ML auto-injector INJECT 1 PEN UNDER THE SKIN EVERY 14 DAYS 6 mL 4 ??? ezetimibe (ZETIA) 10 MG tablet Take 10 mg by mouth once daily ??? FLUoxetine (PROZAC) 60 MG tablet TAKE 1 TABLET BY MOUTH EVERY DAY 30 tablet 2 ??? fluticasone propionate (FLONASE) 50 MCG/ACT nasal spray fluticasone propionate 50 mcg/actuationnasal spray,suspension ??? fluticasone-salmeterol (ADVAIR/WIXELA) 500-50 MCG/DOSE inhaler Inhale 1 (one) puff by mouth 2 times daily 180 Each 4 ??? HYDROcodone-acetaminophen (NORCO) 10-325 MG tablet ??? hydrocortisone (ANUSOL-HC) 25 MG suppository Insert 1 (one) suppository into the rectum 2 timesdaily as needed for Hemorrhoids 24 suppository 1 ??? hydrocortisone (HYTONE) 2.5 % cream hydrocortisone 2.5 % topical cream with perineal applicator ??? hydrocortisone, rectal, (PROCTO-MED HC) 2.5 % cream Insert into the rectum at bedtime 28 g 0 ??? isosorbide mononitrate CR 24hr (IMDUR) 60 MG tablet Take 1 tablet by mouth once daily 90 tablet4 ??? losartan (COZAAR) 100 MG tablet ??? metFORMIN (GLUCOPHAGE) 500 MG tablet ??? metoprolol succinate XL 24hr (TOPROL XL) 50 MG tablet Take 1 (one) tablet by mouth once daily 90 tablet 3 ??? mirtazapine (REMERON) 7.5 MG tablet Take 1 (one) tablet by mouth at bedtime for 90 days 90 tablet 0 ??? nitroGLYCERIN (NITROSTAT) 0.4 MG tablet ??? pantoprazole EC (PROTONIX) 40 MG tablet Take 1 (one) tablet by mouth once daily 90 tablet 1 ??? polyethylene glycol 3350 (MIRALAX) 17 GM/SCOOP powder Take 17 (seventeen) g by mouth once g 1 ??? potassium chloride (KLOR-CON M) 20 MEQ tablet ??? predniSONE (DELTASONE) 20 MG tablet prednisone 20 mg tablet TAKE 2 TABLET BY MOUTH EVERY DAY FOR 5 DAYS ??? tiotropium (SPIRIVA HANDIHALER) 18 MCG inhalation capsule Inhale 1 (one) capsule by mouth once daily 30 capsule 11 ??? triamcinolone acetonide (KENALOG) 0.1 % cream triamcinolone acetonide 0.1 % topical cream APPLY TOPICALLY TO THE AFFECTED AREA TWICE DAILY ??? vitamin D, ergocalciferol, (DRISDOL) 16201 UNITS capsule No current facility-administered medications for this visit. Allergies Allergen Reactions ??? Penicillins Other and Urticaria unknown Reaction: Hives, ??? Azithromycin Unknown ??? Risperidone Other Reported her face getting swollen ??? Statins [Hmg-Coa-R Inhibitors] Other Causes muscle tightness ??? Haloperidol Other unknown ??? Codeine Itching ??? Penicillin G Other ??? Triazolam Unknown Past Medical History: Diagnosis Date ??? Anxiety ??? Atherosclerosis of coronary artery ??? Chest pain pain 10/23 ??? Chronic obstructive pulmonary disease (COPD) ??? Essential hypertension ??? History of diabetes mellitus ??? Obesity ??? Pure hypercholesterolemia ??? Sleep apnea does not use CPAP ??? Snoring Past Surgical History: Procedure Laterality Date ??? Cholecystectomy 2006 ??? HX C SECTION CLASSIC 1989 ??? HX CAROTID ENDARDECTOMY 2014 ??? HX TUBAL LIGATION 1989 ??? ME FOOT/TOES SURGERY PROC UNLISTED ??? Tympanostomy 2014 Family History Problem Relation Name Age of Onset ??? Depression Mother ??? Alcohol abuse Father ??? Depression Sister ??? Thyroid Disease Neg Hx Social History Tobacco Use ??? Smoking status: Current Every Day Smoker Packs/day: 1.00 Years: 40.00 Pack years: 40.00 Types: Cigarettes ??? Smokeless tobacco: Never Used ??? Tobacco comment: pt said she will quit in 09/2021 Vaping Use ??? Vaping Use: Never used Substance Use Topics ??? Alcohol use: No ??? Drug use: Yes Types: Marijuana Comment: occassional Base Eye Exam Visual Acuity (Snellen - Linear) Right Left Dist cc 20/25 -2 20/20 -2 Correction: Glasses Tonometry (Tonopen, 8:52 AM) Right Left Pressure 16 19 Pupils APD Right None Left None Visual Matthew Left Right Full Full Extraocular Movement Right Left Full Full Dilation Both eyes: 1.0% Mydriacyl, 2.5% Sumit Synephrine @ 8:53 AM Slit Lamp and Fundus Exam External Exam Right Left External Normal Normal Slit Lamp Exam Right Left Lids/Lashes 1+ Meibomian gland dysfunction 1+ Meibomian gland dysfunction Conjunctiva/Sclera White and quiet White and quiet Cornea Clear Clear Anterior Chamber hyperemia hyperemia Iris Round and dilated Round and reactive Lens 1+ NS, 2+ CSC 1+ NS, 2+ CSC Vitreous Normal Normal Fundus Exam Right Left Disc Normal Normal C/D Ratio 0.5 0.5 Macula large soft drusen large soft drusen Vessels Normal Normal Periphery chorioretinal scar superior temporal arcade mid periphery around 9 oclock large drusen spots with pigmentary changes far periphery around 5 oclock Refraction Wearing Rx Sphere Cylinder Rison Right -2.75 +0.25 137 Left -3.00 +1.50 030 Age: 6 months Assessment/Plan: ?? Dry AMD - OCTA done 2020 without evidence of neovascularization ?? Viral Conjunctivitis OS>>OD -symptoms controlled with chromolyn drop ?? Visually non-significant Cataracts ?? Refractive Error Choroidoretinal scar OD Extended Ophthalmoscopy OD attached retina, no retinal tears, clear vitreous, no hemorrhage, normal foveal reflex, scar superior, stable OS attached retina, no retinal tears, clear vitreous, no hemorrhage, normal foveal reflex, large drusen at 5h stable, no changes ?? OCT macula - OD- normal foveal contour, multiple drusen spots stable, multiple small PEDs appearimg to be drusenoid stable OS- normal foveal contour, multiple drusen spots stable, multiple small PEDs appearing to be drusenoid stable ?? plan Continue taking the AREDS2 vitamins Continue taking chromolyn drop for ocular allergies Follow up with Dr. Mitchell or Dr. Cortes for MRx Follow up in 3-4 months Patient verbalizes understanding of the above assessment/plan, all questions were answered, and patient agrees to follow-up. Options were given as far as management/treatment concern. Tyrone Zuniga MD HOME CARE documented in this encounter Plan of Treatment Upcoming Encounters Date Type Department Care Team (Late st Contact Info) Description 01/19/2025 11:30 AM RN HOME CARE Procedure visit [facility] [address] [place] [address] [address] [place] [address] Jose Oliver MD [address] [place] [address] documented as of this encounter Goals Goal [...] Procedure Name Priority Date/Time Associated Diagnosis Comments OPH OCT TEST [facility] Routine 12/02/2021 9:29 AM RN HOME CARE Blurred vision, bilateral documented in this encounter Results * OPH OCT TEST [facility] (12/02/2021 9:29 AM RN HOME CARE) Anatomical Region Laterality Modality Other 12/02/2021 9:29 AM RN HOME CARE Tyrone Zuniga MD OPHTHALMOLO [employer] ORDERABLES documented in this encounter Visit Diagnoses Diagnosis Blurred vision, bilateral- Primary Other specified visual disturbances Acute conjunctivitis, unspecified acute conjunctivitis type, unspecified laterality Refractive error Unspecified disorder of refraction and accommodation documented in this encounter Care Teams Field Software Engineer Relationship Specialty Start Date End Date Neva Holden MD [address] [place] [phone] PCP - General 05/06/20 05/25/23 documented as of this encounter
--- OUTSIDE RECORDS SUMMARY | 2024-11-12 04:43 | XMS_ITS | Encounter Summary ---
Author Organization [facility] Address [address] [facility] [place] [address] Care Team Providers Care Piece Jobber Name Role Phone Deisi Andrews MD Primary Care Provider [phone] Reason for Visit * Reason Comments Refill Request Encounter Details Date Type Department Care Team ([facility] st Contact Info) Description 07/05/2023 Refill [facility] [address] [place] [address], [place] [phone] Billy Don MD [address] [place] [address] OF PULMONARY/[place] [address] Refill Request Social History Tobacco Use Types [...] encounter Miscellaneous Notes * Telephone Encounter - Francy Dunn RN - 07/07/2023 10:42 AM CDT Refill Request Rody Zaidi DARIO: 01/06/22 NOV scheduled: 10/14/2023 LRF: 12/03/22 Qty Disp:10.2g # of refills: 5 Allergies: Allergies Allergen Reactions ??? Penicillins Other and Urticaria unknown Reaction: Hives, ??? Azithromycin Unknown ??? Risperidone Other Reported her face getting swollen ??? Statins [Hmg-Coa-R Inhibitors] Other Causes muscle tightness ??? Haloperidol Other unknown ??? Bee Venom Swelling ??? Codeine Itching ??? Penicillin G Other ??? Triazolam Unknown Pended Medication Order: Requested Prescriptions Pending Prescriptions Disp Refills ??? Symbicort 160-4.5 MCG/ACT inhaler [Pharmacy Med Name: SYMBICORT 160/4.5MCG (120 ORAL INH)] 10.2g 5 Sig: INHALE 2 PUFFS BY MOUTH TWICE DAILY . documented in this encounter Plan of Treatment Upcoming Encounters Date Type Department Care Team (Late st Contact Info) Description 01/19/2025 11:30 AM SPECTROGRAPHIC ANALYST Procedure visit [facility] - Urology [address] [place] [address] [address] [place] [phone] Jose Oliver MD [address] [place] [phone] documented as of this encounter Goals Goal [...] Stage 2 moderate COPD by GOLD classification ([facility]) documented in this encounter Care Teams Piece Jobber Relationship Specialty Start Date End Date Deisi Andrews MD [address] [place] [address] [place] [phone] PCP - General Family Medicine 05/26/23 10/26/24 documented as of this encounter
--- OUTSIDE RECORDS SUMMARY | 2024-11-12 04:43 | XMS_ITS | Encounter Summary ---
Author Organization [facility] Address [address] [facility] [place] [address] Care Team Providers Care Film Color Tester Name Role Phone Deisi Andrews MD Primary Care Provider [phone] Reason for Referral * Radiology Services (Routine) - Closed Specialty Diagnoses / Procedures Referred By Contac t Referred To Contact CT Scan Diagnoses Malignant neoplasm of urinary bladder, unspecified site (HCC) Procedures CT UROGRAM Jose Oliver MD [address] [place] [address] Referral ID Status Reason Start Date Expiration Date Visits Re quested Visits Authorized [id number] Closed 08/26/2023 08/25/2024 1 1 ENT TURNER Reason for Visit * Radiology Services (Routine) - Closed Specialty Diagnoses / Procedures Referred By Nacho brooks Referred To Contact CT Scan Diagnoses Malignant neoplasm of urinary bladder, unspecified site (HCC) Procedures CT UROGRAM Jose Oliver MD [address] [place] [address] Referral ID Status Reason Start Date Expiration Date Visits Re quested Visits Authorized [id number] Closed 08/26/2023 08/25/2024 1 1 Encounter Details Date Type Department Care Team (Latest Contact Info) Description 10/22/2023 8:48 AM GARMENT TURNER - 10/22/2023 11:59 PM GARMENT TURNER Hospital Encounter [facility] Health Imaging Services - CT Scan [address] [place] [address] Jose Oliver MD [address] [place] [address] Discharge Disposition: Home or Self Care Social [...] moderate COPD by GOLD classification ([facility]) Inhale 2 (two) puffs by mouth every 4 hours as needed 8.5 g 11 01/05/2022 cetirizine (ZYRTEC) 10 MG tablet cetirizine 10 mg tablet TAKE 1 TABLET BY MOUTH ONCE DAILY NEEDED clopidogrel (PLAVIX) 75 MG tablet Take 1 (one) tablet by mouth once daily 90 tablet 12/08/2021 cromolyn (CROLOM) 4 % ophthalmic solution Instill 1 drop into both eyes 3 times daily 10 mL 4 06/12/2020 cyclobenzaprine (Flexeril) 10 MG tablet 1 po tid prn EPINEPHrine (EPIPEN) 0.3 MG/0.3ML auto-injector pen epinephrine [...] by mouth every 6 hours as needed nitroGLYCERIN (NITROSTAT) 0.4 MG tablet Dissolve 1 (one) tablet under the tongue every 5 minutes as needed for Angina 100 tablet 4 12/08/2021 vitamin D, ergocalciferol, (DRISDOL) 57431 UNITS capsule Take 1 (one) capsule by [...] by mouth once daily 30 capsule 1 09/16/2023 11/18/2023 hyoscyamine (Levsin) 0.125 MG IR tablet Take 1 (one) tablet by mouth every 4 hours as needed for Spasms 30 tablet 10/22/2023 11/30/2023 LORazepam (Ativan) 0.5 MG tablet Take 1 (one) tablet by mouth 3 times daily for 30 days 90 tablet 10/15/2023 11/18/2023 metoprolol succinate XL 24hr (Toprol XL) 25 MG tablet Take 1 (one) tablet by mouth once daily 11/22/2023 ondansetron (ZOFRAN) 8 MG tablet 1 (one) tablet every 6 hours as needed 11/22/2023 pantoprazole EC (PROTONIX) 40 MG tabletIndications:need follow up visit for further [id number] option 1 Take 1 (one) tablet by mouth once daily Reasons: need follow up visit for further [id number] option 1 90 tablet 3 01/23/2022 06/15/2024 polyethylene glycol 3350 (MIRALAX) 17 GM/SCOOP powderIndications:Hemo rrhoids, unspecified hemorrhoid type Take 17 (seventeen) g by mouth once daily 225 g 1 09/01/2021 11/22/2023 sulfamethoxazole-trime thoprim (Bactrim DS; Septra DS) 800-160 MG tablet Take 1 (one) tablet by mouth 2 times daily for 7 days 14 tablet 10/22/2023 10/29/2023 Symbicort 160-4.5 MCG/ACT inhalerIndications:Sta ge 2 moderate COPD by GOLD classification (HCC) INHALE 2 PUFFS BY MOUTH TWICE DAILY 10.2 g 07/07/2023 06/15/2024 traZODone (Desyrel) 50 MG tablet Take 1 (one) tablet by mouth nightly as needed For insomnia. 30 tablet 1 08/19/2023 11/18/2023 documented as of this encounter Consult Notes * Nanette Wheat, RN - 10/22/2023 9:49 AM CSTAssociated Order(s): IP CONSULT TO VASCULAR ACCESS NURSE Verbal/non-verbal indicated consent obtained prior to starting procedure. Limited viable peripheral vessels visualized or palpated without ultrasound. Site cleansed with Chloraprep prior to procedure. Ultrasound probe covered with sterile barrier, sterile gel applied. Peripheral IV placed without complications using ultrasound assessment and ultrasound needle guidance. See doc flowsheet for details. ENT TURNER documented in this encounter Plan of Treatment Upcoming Encounters Date Type Department Care Team (Late st Contact Info) Description 01/19/2025 11:30 AM GARMENT TURNER Procedure visit [facility] - Urology [address] [place] [address] [address] [place] [phone] Jose Oliver MD [address] [place] [phone] Scheduled Orders Name Type Priority Associated Diagnoses Orde r Schedule CREATININE BLOOD - POINT OF CARE (IP) Point of Care Testing Routine Malignant neoplasm of urinary bladder, unspecified site (HCC) ONCE for 1 Occurrences starting 10/22/2023 until 10/22/2023 documented as of this encounter Goals Goal [...] Procedure Name Priority Date/Time Associated Diagnosis Comments CT UROGRAM Routine 10/22/2023 10:10 AM GARMENT TURNER Malignant neoplasm of urinary bladder, unspecified site (HCC) CREATININE - POCT INTERFACED Routine 10/22/2023 9:03 AM GARMENT TURNER documented in this encounter Results * CT UROGRAM (10/22/2023 10:10 AM GARMENT TURNER) Anatomical Region Laterality Modality Abdomen, Pelvis Computed Tomogra phy 10/22/2023 10:3 5 AM GARMENT TURNER Impressions 10/22/2023 10:45 AM GARMENT TURNER IMPRESSION: 1. An infiltrative bladder mass on [...] Douglas Ortiz MD on 10/22/2023 10:45 AM Narrative 10/22/2023 10:45 AM GARMENT TURNER PROCEDURE: ??CT UROGRAM DATE/TIME OF EXAM: ??10/22/2023 [...] upper quadrant and adjacent to the spleen mm in maximum dimension. The adrenal glands, [...] CREATININE - POCT INTERFACED (10/22/2023 9:03 AM GARMENT TURNER) Creatinine POCT 0.88 0.70 - 1.20 mg/dL 10/22/2023 9:14 AM GARMENT TURNER [facility] eGFR 75(L) >=90 mL/min/1.7 3 m2 10/22/2023 9:14 AM GARMENT TURNER [facility] Blood BLOOD SPECIMEN / Unknown 10/22/2023 9:03 AM GARMENT TURNER 10/22/2023 9:14 AM GARMENT TURNER Jose Oliver MD LAB - POINT OF CAR E ORDERABLES [facility] [address] [place] [address] documented in this encounter Visit Diagnoses Diagnosis Malignant neoplasm of urinary bladder, unspecified site (HCC) documented in this encounter Administered Medications Inactive Administered Medications - up to 3 most recent administrations Medication Order MAR Action Action Date Dose Rate Site 0.9% NaCl injection 0-10 mL 0-10 mL, Intracatheter, ONCE PRN, Other, Contrast flush, 1 dose, Starting on Wed10/22/23 at 0933, Until Wed10/22/23 at 0938, For administration with contrast. $ Given 10/22/2023 9:38 AM GARMENT TURNER 10 mL 0.9% NaCl IV flush bag 0-250 mL, Intracatheter, ONCE PRN, Contrast flush, 1 dose, Starting on Wed10/22/23 at 0933, Until Wed10/22/23 at 0938, For administration with contrast $ Given 10/22/2023 9:38 AM GARMENT TURNER 50 mL iopamidol (Isovue 370) 76 % contrast Intravenous, CONTRAST ONCE, Starting on Wed10/22/23 at 0933, Until 10/23/23 at 0135 $ Given - Contrast 10/22/2023 9:37 AM GARMENT TURNER 100 mL documented in this encounter Care Teams Film Color Tester Relationship Specialty Start Date End Date Deisi Andrews MD [address] [place] [phone] PCP - General Family Medicine 05/26/23 10/26/24 documented as of this encounter
--- OUTSIDE RECORDS SUMMARY | 2024-11-12 04:43 | XMS_ITS | Encounter Summary ---
Author Organization [facility] Health Address [address] [place] [address] Care Team Providers Care Adult Health Clinical Nurse Specialist Name Role Phone Neva Holden MD Primary Care Provider [phone] Encounter Details Date Type Department Care Team (Latest Contact Info) Description 03/15/2023 Travel Social History Tobacco Use Types Packs/Day [...] PHQ-2 Answer Date Recorded PHQ2 TOTAL SCORE 2 02/22/2023 Sex and Gender Information Value Date Recorded Sex Assigned at Not on file Gender Identity Not on file Sexual Orientation Not on file COVID-19 Exposure Response Date Recorded In the last 10 days, have yo u been in contact with someone who was confirmed or suspected to have Coronavirus/COVID-19? No / Unsure 03/15/2023 1:46 PM CDT documented as of this encounter Functional Status [...] st Contact Info) Description 01/19/2025 11:30 AM VENDOR RELATIONSHIP MANAGER Procedure visit [facility] - Urology [address] [place] [address] Jose Oliver MD [address] [place] [phone] documented as of this encounter Goals Goal Patient Goal Type Associated Problems Recent Progress Patient-Stated? Author Medication Management General On track( 021 1:21 PM CDT) No Tamiko Mayroga, RN Note: Expected end date: ongoing Interventions: Take all medications as prescribed Let your doctor know right away about any changes in your medications Make sure to request a refill of your medication at least one week prior to your last dose documented as of this encounter Visit Diagnoses Not on filedocumented in this encounter Care Teams Adult Health Clinical Nurse Specialist Relationship Specialty Start Date End Date Neva Holden MD [address] [place] [phone] PCP - General 05/06/20 05/25/23 documented as of this encounter
--- OUTSIDE RECORDS SUMMARY | 2024-11-12 04:43 | XMS_ITS | Encounter Summary ---
Author Organization [facility] Address [address] [place] [address] Care Team Providers Care Bellmaker Name Role Phone Neva Holden MD Primary Care Provider [phone] Reason for Visit * Reason Onset Date Comments Surgery Scheduling 12/15/2022 Encounter Details Date Type Department Care Team (Late st Contact Info) Description 12/15/2022 Telephone [facility] [address] [place] [address] Jose Oliver MD [address] [place] [phone] Surgery Scheduling Social History Tobacco Use Types [...] * Telephone Encounter - Virgen Piña - 12/15/2022 12:49 PM CST Attempted to schedule surgery. Left Voicemail to return call. Virgen Piña 12/15/2022 12:49 PM E GRADER OPERATOR documented in this encounter Plan of Treatment Upcoming Encounters Date Type Department Care Team (Late st Contact Info) Description 01/19/2025 11:30 AM BLADE GRADER OPERATOR Procedure visit [facility] - Urology [address] [place] [address] [address] [place] [address] Jose Oliver MD [address] [place] [address] documented as of this encounter Goals Goal [...] on filedocumented in this encounter Care Teams Bellmaker Relationship Specialty Start Date End Date Neva Holden MD [address] [place] [phone] PCP - General 05/06/20 05/25/23 documented as of this encounter
--- OUTSIDE RECORDS SUMMARY | 2024-11-12 04:43 | XMS_ITS | Encounter Summary ---
Author Organization [facility] Address [address] [place] [place] [address] Care Team Providers Care Bag Grader Name Role Phone Deisi Andrews MD Primary Care Provider [phone] Reason for Visit * Reason Comments Refill Request Encounter Details Date Type Department Care Team ([facility] st Contact Info) Description 07/01/2023 Refill [facility] - Pulmonology [address] [place] [address], [place] [phone] Billy Don MD [address] [place] [address] OF PULMONARY/[place] [address] Refill Request Social History Tobacco Use Types [...] st Contact Info) Description 01/19/2025 11:30 AM WATER QUALITY MANAGER Procedure visit [facility] - Urology [address] [place] [address] [address] [place] [address] Jose Oliver MD [address] [place] [phone] documented as of this encounter Goals Goal [...] (HCC) documented in this encounter Care Teams Bag Grader Relationship Specialty Start Date End Date Deisi Andrews MD [address] [place] [address] PCP - General Family Medicine 05/26/23 10/26/24 documented as of this encounter
--- OUTSIDE RECORDS SUMMARY | 2024-11-12 04:43 | XMS_ITS | Encounter Summary ---
Author Organization [facility] Address [address] [facility] [place] [address] Care Team Providers Care Exerciser Name Role Phone Neva Holden MD Primary Care Provider [phone] Encounter Details Date Type Department Care Team (Late Contact Info) Description 02/27/2022 Orders Only [facility] General Surgery [address] [place] [address] Jose Oliver MD [address] [place] [phone] Malignant neoplasm of urinary bladder, unspecified site (HCC) Social History Tobacco Use Types Packs/Day Years Used Date Smoking Tobacco: Every Day Cigarettes 1 40 Smokeless Tobacco: Never Comments:pt said she will qu it in 09/2021 Alcohol Use Standard Drinks/Week Comments No 0 (1 standard drink = 0.6 oz pur e alcohol) PHQ-2 Answer Date Recorded PHQ2 TOTAL SCORE 0 02/10/2022 Sex and Gender Information Value Date Recorded Sex Assigned at Not on file Gender Identity Not on file Sexual Orientation Not on file documented as of this encounter Plan of Treatment Upcoming Encounters Date Type Department Care Team (Late Contact Info) Description 01/19/2025 11:30 AM BONER MEAT Procedure visit [facility] - Urology [address] [place] [address] [address] [place] [phone] Jose Oliver MD [address] [place] [address] documented as of this encounter Goals Goal [...] Name Priority Date/Time Associated Diagnosis Comments URINALYSIS NO MICROSCOPIC NO CULTURE Routine 03/11/2022 10:45 AM CDT Malignant neoplasm of urinary bladder, unspecified site (HCC) CULTURE URINE Routine 03/11/2022 10:45 AM CDT Malignant neoplasm of urinary bladder, unspecified site (HCC) CBC W AUTO DIFFERENTIAL Routine 03/11/2022 10:45 AM CDT Malignant neoplasm of urinary bladder, unspecified site (HCC) BASIC METABOLIC PANEL (CALCIUM TOTAL) Routine 03/11/2022 10:45 AM CDT Malignant neoplasm of urinary bladder, unspecified site (HCC) documented in this encounter Results * (ABNORMAL) URINALYSIS NO MICROSCOPIC NO CULTURE (03/11/2022 10:45 AM CDT) Color UA ORANGE(A) YELLOW [facility] Comment: The above test was performed; however, evaluate chemical results with caution due to possible interference from specimen color. Confirmatory testing was performed for glucose, bilirubin, and specific gravity. Appearance TURBID(A) CLEAR [facility] Specific [place] UA 1.027 1.001 - 1.035 [facility] pH UA < OR = 5.0 5.0 - 8.0 [facility] Glucose UA TRACE(A) NEGATIVE [facility] Bilirubin UA NEGATIVE NEGATIVE [facility] Ketone UA NEGATIVE NEGATIVE [facility] Blood UA 3+(A) NEGATIVE [facility] Protein UA 2+(A) NEGATIVE [facility] Nitrite UA NEGATIVE NEGATIVE [facility] Leukocyte UA 2+(A) NEGATIVE [facility] Comment: Test Performed at: [facility] [address] [place], [place] ??[phone] JESSICA MANLEY DO,MPH Urine URINE SPECIMEN OBTAINED BY CLEAN CATCH PROCEDURE / Unknown 03/11/2022 10:45 AM CDT 03/11/2022 10:46 AM CDT Jose Oliver MD LAB - URINALYSIS O RDERABLES Performing Organization Address [facility] de Phone Number [address] [address] * CULTURE URINE (03/11/2022 10:45 AM CDT) Culture [facility] Comment: ??CULTURE, URINE, ROUTINE ?Micro Number: ?[id number] ??Test Status: ? Final ??Specimen Source: ?? Urine ??Specimen Quality: ??Adequate ??Result: ?No Growth Test Performed at: [employer] ??[phone] GISELE JUSTICE MD Urine URINE SPECIMEN OBTAINED BY CLEAN CATCH PROCEDURE / Unknown 03/11/2022 10:45 AM CDT 03/11/2022 10:46 AM CDT Jose Oliver MD LAB - MICROBIOLOGY ORDERABLES Performing Organization Address [facility] de Phone Number [address] [address] * (ABNORMAL) BASIC METABOLIC PANEL (CALCIUM TOTAL) (03/11/2022 10:45 AM CDT) Glucose 172(H) 65 - 99 mg/dL [facility] Comment: ? Fasting reference interval For someone without known diabetes, a glucose value >125 mg/dL indicates that they may have diabetes and this should be confirmed with a follow-up test. BUN 18 7 - 25 mg/dL [facility] Creatinine 1.18(H) 0.50 - 0.99 mg/dL [facility] Comment: For patients >49 years of age, the reference limit for Creatinine is approximately 13% higher for people identified as -Fijian. eGFR by MDRD 50(L) > OR = 60 mL/min/1. 73m2 [facility] eGFR by MDRD 58(L) > OR = 60 mL/min/1. 73m2 [facility] BUN/Creatinine Ratio 15 6 - 22 (calc) [facility] Sodium 136 135 - 146 mmol/L [facility] Potassium 3.7 3.5 - 5.3 mmol/L [facility] Chloride 99 98 - 110 mmol/L [facility] CO2 25 20 - 32 mmol/L [facility] Calcium 9.3 8.6 - 10.4 mg/dL [facility] Comment: Test Performed at: [facility] [address] [facility], [place] ??[phone] JESSICA MANLEY DO,MPH Blood BLOOD SPECIMEN / Unknown 03/11/2022 10:45 AM CDT 03/11/2022 10:46 AM CDT Jose Oliver MD LAB - CHEMISTRY OR DERABLES Performing Organization Address City/State/[facility] Co de Phone Number [facility] [address] [place] [address] * (ABNORMAL) CBC WITH DIFFERENTIAL (03/11/2022 10:45 AM CDT) White Blood Cell Count 12.5(H) 3.8 - 10.8 Thousand/u L [facility] RBC 5.42(H) 3.80 - 5.10 Million/uL [facility] Hemoglobin 14.9 11.7 - 15.5 g/dL [facility] Hematocrit 46.2(H) 35.0 - 45.0 % [facility] MCV 85.2 80.0 - 100.0 fL [facility] MCH 27.5 27.0 - 33.0 pg [facility] MCHC 32.3 32.0 - 36.0 g/dL [facility] RDW 13.5 11.0 - 15.0 % [facility] Platelet Count 278 140 - 400 Thousand/u L [facility] MPV 9.9 7.5 - 12.5 fL [facility] Neutrophil Absolute 7338 1500 - 7800 cells/uL [facility] Lymphocytes Absolute 3763 850 - 3900 cells/uL [facility] Absolute Monocytes 1063(H) 200 - 950 cells/uL [facility] Eosinophils Absolute 250 15 - 500 cells/uL [facility] Basophils Absolute 88 0 - 200 cells/uL [facility] Granulocytes % 58.7 % [facility] Lymphocytes % 30.1 % [facility] Monocytes % 8.5 % [facility] Eosinophils % 2.0 % [facility] Basophils % 0.7 % [facility] Comment: Test Performed at: [facility] [address] [place], [place] ??[address] JESSICA MANLEY DO,MPH Blood BLOOD SPECIMEN / Unknown 03/11/2022 10:45 AM CDT 03/11/2022 10:46 AM CDT Jose Oliver MD LAB - HEMATOLOGY O RDERABLES Performing Organization Address City/State/[facility] Co de Phone Number [employer] [address] [place] [address] documented in this encounter Visit Diagnoses Diagnosis Malignant neoplasm of urinary bladder, unspecified site (HCC)- Primary documented in this encounter Care Teams Exerciser Relationship Specialty Start Date End Date Neva Holden MD [address] [place] [phone] PCP - General 05/06/20 05/25/23 documented as of this encounter
--- OUTSIDE RECORDS SUMMARY | 2024-11-12 04:43 | XMS_ITS | Encounter Summary ---
Author Organization [facility] Address [address] [facility] [place] [address] Care Team Providers Care Senior Project Manager Engineering Name Role Phone Deisi Andrews MD Primary Care Provider [phone] Reason for Visit * Reason Comments Refill Request Encounter Details Date Type Department Care Team (Late st Contact Info) Description 07/25/2023 Refill [facility] - Cardiology [address] [facility] [address] [place] [address] Monica Quijano MD Refill Request Social History Tobacco Use Types [...] st Contact Info) Description 01/19/2025 11:30 AM PCTS Procedure visit [facility] - Urology [address] [facility] [address] [place] [phone] Jose Oliver MD [address] [place] [phone] documented as of this encounter Goals Goal [...] on filedocumented in this encounter Care Teams Senior Project Manager Engineering Relationship Specialty Start Date End Date Deisi Andrews MD [address] [place] [address] [place] [address] PCP - General Family Medicine 05/26/23 10/26/24 documented as of this encounter
--- OUTSIDE RECORDS SUMMARY | 2024-11-12 04:43 | XMS_ITS | Encounter Summary ---
Author Organization [facility] Health Address [address] [place] [address] Care Team Providers Care Financial Services Professional Name Role Phone Deisi Andrews MD Primary Care Provider [phone] Encounter Details Date Type Department Care Team (Latest Contact Info) Description 05/27/2023 Travel Social History Tobacco Use Types Packs/Day [...] st Contact Info) Description 01/19/2025 11:30 AM MEAT BONER AND SLICER Procedure visit [facility] - Urology [address] [place] [address] [address] [place] [address] Jose Oliver MD [address] [place] [address] documented as of this encounter Goals Goal [...] on filedocumented in this encounter Care Teams Financial Services Professional Relationship Specialty Start Date End Date Deisi Andrews MD [address] [place] [address] PCP - General Family Medicine 05/26/23 10/26/24 documented as of this encounter
--- OUTSIDE RECORDS SUMMARY | 2024-11-12 04:43 | XMS_ITS | Encounter Summary ---
Author Organization [facility] Address [address] [place] [address] Care Team Providers Care Stationary Plant Operators Name Role Phone Neva Holden MD Primary Care Provider [phone] Reason for Visit * Reason Comments Coronary Artery Disease Encounter Details Date Type Department Care Team (Latest Contact Info) Description 12/08/2021 10:00 AM AUTO COLLISION REPAIR INSTRUCTOR Office Visit [facility]iology [address] [place] [address] Monica Quijano MD Coronary artery disease of [place] artery of [place] heart with stable angina pectoris (HCC) (Primary Dx); PVD (peripheral vascular disease) (HCC); Hyperlipidemia, unspecified hyperlipidemia type; Essential (primary) hypertension; Type 2 diabetes mellitus with diabetic polyneuropathy, unspecified whether 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 No / Unsure 12/02/2021 9:22 AM AUTO COLLISION REPAIR INSTRUCTOR documented as of this encounter Last Filed Vital Signs Vital Sign Reading Time Taken Comments Blood Pressure 120/62 12/08/2021 9:58 AM AUTO COLLISION REPAIR INSTRUCTOR Pulse 98 12/08/2021 9:58 AM AUTO COLLISION REPAIR INSTRUCTOR Temperature 36.2 ??C (97.2 ??F) 12/08/2021 9:58 AM CS T Respiratory Rate - - Oxygen Saturation 97% 12/08/2021 9:58 AM AUTO COLLISION REPAIR INSTRUCTOR Inhaled Oxygen Concentration - - Weight 97.5 kg (215 lb) 12/08/2021 9:58 AM AUTO COLLISION REPAIR INSTRUCTOR Height 160 cm (5' 3 ) 12/08/2021 9:58 AM AUTO COLLISION REPAIR INSTRUCTOR Body Mass Index 38.09 12/08/2021 9:58 AM AUTO COLLISION REPAIR INSTRUCTOR documented in this encounter Patient Instructions * Patient Instructions* Monica Quijano MD - 12/08/2021 10:07 AM AUTO COLLISION REPAIR INSTRUCTOR Try really hard to fully stop smoking. Please call my nurse, Adrianna, with any questions or concerns. She can be reached at: [phone] COLLISION REPAIR INSTRUCTOR documented in this encounter Progress Notes * Monica Quijano MD - 12/08/2021 10:00 AM CST Cardiology Clinic Note Assessment & Plan Rody is a 60 year old female who has completed a telephone encounter regardin60 year old female with known extensive PAD (carotid and iliacs) with: 1) CAD, chest pain - continues to have rare, mild symptoms - continue/up titrate antianginals PRN Imdur 60 mg daily Metoprolol 50 mg daily (patient changed to 50 mg daily on her own.) SL NG PRN - warning symptoms and when to seek emergency medical care discussed 2) dyslipidemia - cramps with 10 of rosuvastatin - could not tolerate pravastatin - continue zetia - repeat lipid panel 8 weeks after starting - unclear if taking repatha? Issues with insurance - labs still deranged - provided samples, trial offer - will re-Rx and prior auth 3) HTN - at goal - continue losartan 100 mg - continue to monitor 4) PAD - mgmt as above - DAPT - follows with vascular surgery - pletal per vascular 5) TIA - mgmt as above 6) DMII - needs tight control - mgmt per PCP - consider SLGT2 7) tobacco use disorder - focused on how important complete cessation is - cutting back, wants to quit before grandkid born RTC 6 months, sooner PRN. Monica Quijano, DO [facility] Subjective Since last visit continues to do ok.. CP is rare, and short lasting. Occasional SL NG. Not concerning to her. Continuing to try to lose weight- intentional, but lost some ground over the holiday. Working on quitting smoking- has cut back. As active as she wants to be without limitations. Issues with filling some meds. A comprehensive 10 system ROS was reviewed. Pertinent positives and negatives are included in HPI or PMH. The remainder of the 10 system ROS was negative. Objective Current Outpatient Medications: ??? albuterol (PROVENTIL;VENTOLIN) (2.5 MG/3ML) 0.083% nebulizer solution, Inhale 2.5 (two and one-half) mg by mouth every 4 hours as needed for Shortness of Breath, Disp: 75 mL, Rfl: 0 ??? albuterol HFA (PROAIR HFA) 108 (90 Base) MCG/ACT inhaler, Inhale 2 (two) puffs by mouth every 4hours as needed, Disp: 8.5 g, Rfl: 11 ??? ALPRAZolam (XANAX) 1 MG tablet, Take 1 (one) tablet by mouth 3 times daily for 90 days Reasons:Feeling Anxious, Panic Disorder, Disp: 90 tablet, Rfl: 2 ??? aspirin EC (ECOTRIN) 325 MG tablet, , Disp: , Rfl: ??? cetirizine (ZYRTEC) 10 MG tablet, cetirizine 10 mg tablet, Disp: , Rfl: ??? clopidogrel (PLAVIX) 75 MG tablet, Take 1 tablet by mouth once daily, Disp: 90 tablet, Rfl: 0 ??? cromolyn (CROLOM) 4 % ophthalmic solution, Instill 1 drop into both eyes 3 times daily, Disp: 10 mL, Rfl: 4 ??? cyclobenzaprine (FLEXERIL) 10 MG tablet, TK 1 T PO TID PRN, Disp: , Rfl: ??? doxycycline monohydrate 100 MG capsule, Take 100 mg by mouth 2 times daily , Disp: , Rfl: ??? EPINEPHrine (EPIPEN) 0.3 MG/0.3ML auto-injector pen, epinephrine 0.3 mg/0.3 mL injection, auto-injector, Disp: , Rfl: ??? evolocumab (REPATHA SURECLICK) 140 MG/ML auto-injector, INJECT 1 PEN UNDER THE SKIN EVERY 14 DAYS, Disp: 6 mL, Rfl: 4 ??? ezetimibe (ZETIA) 10 MG tablet, Take 10 mg by mouth once daily, Disp: , Rfl: ??? FLUoxetine (PROZAC) 60 MG tablet, TAKE 1 TABLET BY MOUTH EVERY DAY, Disp: 30 tablet, Rfl: 2 ??? fluticasone propionate (FLONASE) 50 MCG/ACT nasal spray, fluticasone propionate 50 mcg/actuation nasal spray,suspension, Disp: , Rfl: ??? fluticasone-salmeterol (ADVAIR/WIXELA) 500-50 MCG/DOSE inhaler, Inhale 1 (one) puff by mouth 2 times daily, Disp: 180 Each, Rfl: 4 ??? HYDROcodone-acetaminophen (NORCO) 10-325 MG tablet, , Disp: , Rfl: ??? hydrocortisone (ANUSOL-HC) 25 MG suppository, Insert 1 (one) suppository into the rectum 2 times daily as needed for Hemorrhoids, Disp: 24 suppository, Rfl: 1 ??? hydrocortisone (HYTONE) 2.5 % cream, hydrocortisone 2.5 % topical cream with perineal applicator, Disp: , Rfl: ??? hydrocortisone, rectal, (PROCTO-MED HC) 2.5 % cream, Insert into the rectum at bedtime, Disp: 28 g, Rfl: 0 ??? isosorbide mononitrate CR 24hr (IMDUR) 60 MG tablet, Take 1 tablet by mouth once daily, Disp: 90 tablet, Rfl: 4 ??? levoFLOXacin (LEVAQUIN) 500 MG tablet, levofloxacin 500 mg tablet TAKE 1 TABLET BY MOUTH ONCE DAILY FOR 7 DAYS, Disp: , Rfl: ??? losartan (COZAAR) 100 MG tablet, , Disp: , Rfl: ??? metFORMIN (GLUCOPHAGE) 500 MG tablet, , Disp: , Rfl: ??? metoprolol succinate XL 24hr (TOPROL XL) 50 MG tablet, Take 1 (one) tablet by mouth once daily,Disp: 90 tablet, Rfl: 3 ??? mirtazapine (REMERON) 7.5 MG tablet, Take 1 (one) tablet by mouth at bedtime for 90 days, Disp:90 tablet, Rfl: 0 ??? nitroGLYCERIN (NITROSTAT) 0.4 MG tablet, , Disp: , Rfl: ??? pantoprazole EC (PROTONIX) 40 MG tablet, Take 1 (one) tablet by mouth once daily, Disp: 90 tablet, Rfl: 1 ??? polyethylene glycol 3350 (MIRALAX) 17 GM/SCOOP powder, Take 17 (seventeen) g by mouth once daily, Disp: 225 g, Rfl: 1 ??? potassium chloride (KLOR-CON M) 20 MEQ tablet, , Disp: , Rfl: ??? predniSONE (DELTASONE) 20 MG tablet, prednisone 20 mg tablet TAKE 2 TABLET BY MOUTH EVERY DAY FOR 5 DAYS, Disp: , Rfl: ??? tiotropium (SPIRIVA HANDIHALER) 18 MCG inhalation capsule, Inhale 1 (one) capsule by mouth oncedaily, Disp: 30 capsule, Rfl: 11 ??? triamcinolone acetonide (KENALOG) 0.1 % cream, triamcinolone acetonide 0.1 % topical cream APPLY TOPICALLY TO THE AFFECTED AREA TWICE DAILY, Disp: , Rfl: ??? vitamin D, ergocalciferol, (DRISDOL) 04025 UNITS capsule, , Disp: , Rfl: Physical Exam: Vitals: 12/08/21 0958 BP: 120/62 Pulse: 98 Temp: 97.2 ??F (36.2 ??C) SpO2: 97% Weight: 215 lb (97.5 kg) Height: 5' 3 (1.6 m) General appearance: The patient is alert, oriented, cooperative and in no distress. Appears older than stated age. HEENT: Normocephalic. AT (no teeth) Neck: The thyroid is not enlarged no bruits Chest: Clear to auscultation bilaterally. No wheezes or crackles Heart: Regular rate and rhythm. S1, S2 normal. No murmurs, clicks, rubs or gallops. There is no jugular venous distension noted. Abdomen: obese, Soft, non-tender. Normal appearance. Bowel sounds normal. Extremities: Normal, atraumatic, no cyanosis or edema. Musculoskeletal: Normal range of motion. Pulses: radial pulses 2+ and symmetric. Skin: Skin color, texture, turgor normal. No rashes or lesions on exposed skin. DATA REVIEWED: LABS: CBC: Recent Labs Component Name 10/06/21 1600 10/21/20 0812 09/04/20 0729 WBC 10.2 9.7 11.4* HGB 13.5 14.0 13.3 HCT 41.4 42.0 40.6 MCV 88.8 86.6 86.6 BMP: Recent Labs Component Name 10/06/21 1600 10/21/20 0812 09/04/20 0729 NA 140 - 138 CL 104 - 104 CO2 27 26 24 BUN 18 24 21 CREATININE 0.97* 0.81 0.7 CALCIUM 9.3 9.1 8.6 Recent Labs Component Name 12/02/21 1026 09/30/21 0711 03/20/21 1203 02/20/21 0931 CHOL 209* 198 - 230* TRIG 544* 444* - 541* HDL 38* 53 - 31* LDLDIRECT 95 - 125* - Recent Labs Component Name 10/06/21 1600 HGBA1C 7.9* EAG 180 EC10/01/2020 NSR, no acute ST-T wave abnormalities LHC: 10/24/2020 ANGIOGRAPHY: ?? i. ?Left main: Left main has no angiographically significant vessel. It divides into LAD, LCx and Ramus branches. ii.?LAD: Proximal LAD has 50-60% focal stenosis. Mild to distal LAD has mild disease. iii. ?? LCx: Dominant vessel. No significant disease in the proximal portion. Mid LCx has 30% stenosis. There is small caliber LPDA with mild disease. iv. ?? RCA: Non dominant, small caliber vessel with mild disease. v.? Other angiography: Ramus intermedius: There is mild diffuse disease in the proximal RI.Mid Ramus has 30-40% stenosis before it divides into two branches. Remainder of Ramus has trivial disease. ?? DFR OF THE Proximal LAD LESION: A [...] showed no evidence of dissection or perforation. ? DOMINANCE: Left ?? DIAGNOSTIC INTERPRETATIONS: Borderline angiographic lesion in the Proximal LAD which was non significant by DFR Otherwise non obstructive CAD ?? RECOMMENDATIONS AFTER DIAGNOSTIC CATHETERIZATION: Medical management of nonobstructive CAD. Aspirin 81 mg QDAY indefinitely. Aggressive modification of atherosclerotic risk factors. Maximize antianginal therapy. Further recommendation as per Outpatient Cardiology team. Carotid (10/22/2020) The right internal carotid artery has 50-79% stenosis. The left internal carotid artery has less than 50% stenosis. Significant stenosis of the left external carotid artery. KENZIE (10/22/2020) The right KENZIE is 0.76. The left KENZIE is 0.98. Abnormal right lower extremity arterial physiologic study consistent with mild to moderate peripheral vascular disease. Normal left lower extremity arterial physiologic study. COLLISION REPAIR INSTRUCTOR documented in this encounter Plan of Treatment Upcoming Encounters Date Type Department Care Team (Late st Contact Info) Description 01/19/2025 11:30 AM AUTO COLLISION REPAIR INSTRUCTOR Procedure visit [facility] - Urology [address] [place] [address] [address] [place] [address] Jose Oliver MD [facility] [place] [address] documented as of this encounter Goals Goal [...] as of this encounter Visit Diagnoses Diagnosis Coronary artery disease of [place] artery of [place] heart with stable angina pectoris (HCC)- Primary PVD (peripheral vascular disease) (HCC) Peripheral vascular disease, unspecified Hyperlipidemia, unspecified hyperlipidemia type Essential (primary) hypertension Unspecified essential hypertension Type 2 diabetes mellitus with diabetic polyneuropathy, unspecified whether shelter insulin use (HCC) documented in this encounter Care Teams Stationary Plant Operators Relationship Specialty Start Date End Date Neva Holden MD [facility] [place] [id number] PCP - General 05/06/20 05/25/23 documented as of this encounter
--- OUTSIDE RECORDS SUMMARY | 2024-11-12 04:43 | XMS_ITS | Encounter Summary ---
Author Organization [facility] [employer] Address [address] [facility] [place] [address] Care Team Providers Care Port Traffic Manager Name Role Phone Neva Holden MD Primary Care Provider [phone] Reason for Visit * Auth/Cert (Routine) Specialty Diagnoses / Procedures Referred By Contac t Referred To Contact Diagnoses Malignant neoplasm of urinary bladder, unspecified site (HCC) Malignant neoplasm of urinary bladder, unspecified site Procedures TRANSURETHRAL RESECTION BLADDER TUMOR (TURBT) Referral ID Status Reason Start Date Expiration Date Visits Re quested Visits Authorized [id number] 1 1 Encounter Details Date Type Department Care Team (Late st Contact Info) Description 01/18/2023 8:55 AM INFORMATION TECHNOLOGY DIRECTOR - 01/18/2023 10:30 AM INFORMATION TECHNOLOGY DIRECTOR Surgery [facility] [address] [place] [phone] Jose Oliver MD [address] [facility] 2L [place] [id number] Blue light cystoscopy and transurethral resection of bladder tumor Surgery Details Date/Time Status Location OR Service Patient Class Case Class Case Type Trauma Case? 01/18/2023 8:55 AM Posted [facility] OR OR 07 Urology Surgery Day Care Elective > 5 days Panel 1 Procedure LRB Anes Op Region Wound Class Comments Blue light cystoscopy and transurethral resection of bladder tumor N/A General Clean Contaminated Surgeon Surgeon Role Service Panel Jose Oliver MD Primary Urology 1 Orf, Kenan, MD Resident - Assisting Urology 1 Special Needs Laser Pow[place] stone confirmed ? Blue light laser / Reviewed 01/13 documented in this encounter Social History Tobacco Use Types Packs/Day Years Used Date Smoking Tobacco: Every Day Cigarettes 0.5 40 Smokeless Tobacco: Never Tobacco Cessation:Ready to [...] Sign Reading Time Taken Comments Blood Pressure 127/71 01/18/2023 10:30 AM INFORMATION TECHNOLOGY DIRECTOR Pulse 77 01/18/2023 10:30 AM INFORMATION TECHNOLOGY DIRECTOR Temperature 36.1 ??C (97 ??F) 01/18/2023 10:20 AM INFORMATION TECHNOLOGY DIRECTOR Respiratory Rate 10 01/18/2023 10:30 AM INFORMATION TECHNOLOGY DIRECTOR Oxygen Saturation 96% 01/18/2023 10:30 AM INFORMATION TECHNOLOGY DIRECTOR Inhaled Oxygen Concentration - - Weight 90.4 kg (199 lb 6.4 oz) 01/18/2023 7:57 A M INFORMATION TECHNOLOGY DIRECTOR Height 160 cm (5' 3 ) 01/18/2023 7:57 AM INFORMATION TECHNOLOGY DIRECTOR Body Mass Index 35.32 01/18/2023 7:57 AM INFORMATION TECHNOLOGY DIRECTOR documented in this encounter Functional Status Functional [...] No 01/18/2023 documented as of this encounter Discharge Instructions * Discharge Instructions* Kenan Argueta MD - 01/18/2023 10:01 AM INFORMATION TECHNOLOGY DIRECTOR Images from the original note were not included. [facility] Urology You had a procedure called a transurethral resection of bladder tumor ( TURBT). This is surgery to remove/resect a bladder tumor. During the surgery, a surgeon placed a thin, lighted tube (cystoscope) into the bladder through the urethra. The urethra is the part of your body that carries urine fromthe bladder to the outside of the body. The surgeon used a tool to either remove the cancer/mass or burn it away with high-energy electricity. It is not uncommon to have blood in your urine or to pass some small [...] Up: We will call you with pathology results. Post Operative Pain Control: - You can take Tylenol (acetaminophen) and Motrin (Ibuprofen) in alternating fashion every 4-6 hours, especially in the first 24-48 hours after surgery, then as needed thereafter. - You may also be prescribed narcotic pain medication such as Oxycodone, Albion, or Tramadol. This should be taken as needed for severe pain only. Do not drink alcohol, drive, or operate heavy machinery while taking this type of medication. If the narcotic is Albion, please understand that Albion has Tyelonol in it. If you are also taking Tylenol or other Tylenol containing products make sure you donot exceed 4g (4000mg) of Tylenol within a 24 hour time period. Bowel Regimen/Constipation in the Post-Op Period: - [...] bladder - Do not drive while on narcotics and the 24 hours after anesthesia. - Please ask [...] surgery or the recovery process, please contact [facility] Urology [phone] on weekdays during regular business hours. If you have an urgent or emergent question on a weekend or after regular business hours, please contact [facility] Hospital at [phone] and ask for the provider inclusion paraeducator for Urology. In addition, please contact us [...] to the touch, or non-clear, foul-smelling drainage) RMATION TECHNOLOGY DIRECTOR documented in this encounter Medications at Time of Discharge Medication Sig Dispensed Refills Start Date End Date albuterol (PROVENTIL;VENTOLIN) (2.5 MG/3ML) 0.083% nebulizer solution Inhale 2.5 (two and one-half) mg by mouth every 4 hours as needed for Shortness of Breath 75 mL 11/03/2021 albuterol HFA (PROAIR HFA) 108 (90 Base) MCG/ACT inhalerIndications:Sta ge 2 moderate COPD by GOLD classification ([facility]) Inhale 2 (two) puffs by [...] 3 times daily 10 mL 4 06/12/2020 EPINEPHrine (EPIPEN) 0.3 MG/0.3ML auto-injector pen epinephrine 0.3 mg/0.3 mL injection, auto-injector evolocumab (REPATHA SURECLICK) 140 MG/ML auto-injector INJECT 1 PEN UNDER THE SKIN EVERY 14 DAYS 6 mL 4 05/29/2022 ezetimibe (ZETIA) 10 MG tablet Take 1 (one) tablet by mouth once daily 90 tablet 4 12/08/2021 ibuprofen (MOTRIN) 600 MG tablet Take 1 (one) tablet by mouth every 6 hours as needed (for post operative pain) 30 tablet 03/23/2022 losartan (COZAAR) 100 MG tablet Take 1 (one) tablet by mouth once daily 90 tablet 4 12/08/2021 metFORMIN (GLUCOPHAGE) 500 MG tablet Take 1 (one) tablet by mouth 2 times daily with morning and evening meal 12/27/2016 nitroGLYCERIN (NITROSTAT) 0.4 MG tablet Dissolve 1 (one) tablet under the tongue every 5 minutes as needed for Angina 100 tablet 4 12/08/2021 vitamin D, ergocalciferol, (DRISDOL) 49200 UNITS capsule Take 1 (one) capsule by mouth every 7 days 01/29/2019 acetaminophen (TYLENOL) 325 MG tablet Take 2 (two) tablets by mouth every 6 hours as needed for Fever or Pain Maximum allowable Acetaminophen amount = 4 Grams (4000 mg) / 24 hours. 60 tablet 03/23/2022 06/21/2024 ALPRAZolam (Xanax) 0.5 MG tablet TAKE 1 TABLET BY MOUTH THREE TIMES A DAY FOR 30 DAYS 12/26/2022 02/22/2023 budesonide-formoterol (Symbicort) 160-4.5 MCG/ACT inhalerIndications:Sta ge 2 moderate COPD by GOLD classification ([facility]) INHALE 2 PUFFS BY MOUTH TWICE DAILY 10.2 g 5 12/03/2022 07/07/2023 FLUoxetine (PROzac) 60 MG tablet fluoxetine 60 mg tablet TAKE 1 (ONE) TABLET BY MOUTH ONCE DAILY FOR 90 DAYS 05/27/2023 levoFLOXacin (Levaquin) 750 MG tablet Take 1 (one) tablet by mouth once daily 01/07/2023 10/22/2023 metroNIDAZOLE (Flagyl) 500 MG tablet TAKE 1 TABLET BY MOUTH EVERY 8 HOURS FOR 10 DAYS 01/07/2023 10/22/2023 mirabegron ER (Myrebetriq) 8 MG/ML suspension Take 3 mL by mouth once daily 10/22/2023 mirtazapine (Remeron) 7.5 MG tablet Take 1 (one) tablet by mouth at bedtime 02/22/2023 nicotine (NICODERM CQ) 21 MG/24HR patch APPLY 1 PATCH TOPICALLY ONCE DAILY 01/16/2022 10/22/2023 ondansetron (ZOFRAN) 8 MG tablet 1 (one) tablet every 6 hours as needed 11/22/2023 oxyCODONE-acetaminophe n (Percocet) 5-325 MG tabletIndications:Anastasiya gnsaima neoplasm of urinary bladder, unspecified site (HCC) Take 1 (one) tablet by mouth every 6 hours as needed for Pain 10 tablet 01/18/2023 10/22/2023 pantoprazole EC (PROTONIX) 40 MG tabletIndications:need follow up visit for further [phone] option 1 Take 1 (one) tablet by mouth once daily Reasons: need follow up visit for further [phone] option 1 90 tablet 3 01/23/2022 06/15/2024 polyethylene glycol 3350 (MIRALAX) 17 GM/SCOOP powderIndications:Hemo rrhoids, unspecified hemorrhoid type Take 17 (seventeen) g by mouth once daily 225 g 1 09/01/2021 11/22/2023 documented as of this encounter Progress Notes * Radha Curiel CPhT - 01/18/2023 12:11 PM CST MEDICATION TO BEDSIDE DELIVERY: COMPLETE Medication to Bedside delivery was completed for Arnold Cruz. ??? A total of 1 prescriptions were delivered to the patient for discharge. ??? Medications were given to NURSE (TERESA) ??? This delivery included a controlled substance: YES, given to TERESA ??? This delivery included medication that should be stored in the fridge: NO Thank you for allowing the outpatient pharmacy to participate in the care of Arnold Cruz. If you have any questions, please contact the outpatient pharmacy at [phone]. Radha Curiel CPhT [facility] at [address], [address] Floor [place], [place] [address] Hours of Operation Wednesday - Wednesday: 8:00am to 6:00pm Wednesday: 9:00am to 1:00pm [facility]: [facility] *Ensure the patient and clinic's nearby ZIP codes box is unchecked* * [place] Knutson APRN-CNP - 01/18/2023 7:56 AM CST Blue light Cystoscopy: -Pt emptied Bladder prior to coming into Pre-post room - Cysview solution 100mg (hexaminolevulinate HCL) instilled into bladder via catheter. Pt tolerated. RMATION TECHNOLOGY DIRECTOR documented in this encounter H&P Notes * Kenan Argueta MD - 01/18/2023 3:18 AM CST Urologic Surgery Pre-Operative H&P Note Admit Date: (Not on file) NAME: Arnold Cruz AGE: [age] year old SEX: female HPI: Arnold Cruz is a 62 year old female with a hx of HG T1 bladder cancer who presented for operativeintervention. Since DARIO, no issues. Denies hematuria, fevers, chills, CP, or SOB. REVIEW OF SYSTEMS Constitutional: Denies: fever, chills [...] List Diagnosis Date Noted ??? CAD in [place] artery 10/24/2020 Priority: Not Prioritized ??? PAD (peripheral artery disease) ([facility]) Priority: Not Prioritized ??? MDD (recurrent major depressive disorder) in remission ([facility]) 08/05/2018 Priority: Not Prioritized ??? GIOVANNY (generalized anxiety disorder) 06/09/2017 ICD-10 update ??? Obesity 01/09/2017 ??? Nocturia 01/09/2017 ??? Personal history of transient ischemic attack (TIA), and cerebral infarction without residual deficits 01/09/2017 reported ??? Occlusion and stenosis of bilateral carotid arteries 01/09/2017 ??? Chronic pain syndrome 01/09/2017 ??? Type 2 diabetes mellitus with diabetic polyneuropathy ([facility]) 01/09/2017 EMG/[facility] ??? Insomnia due to medical condition 01/09/2017 ??? Gastro-esophageal reflux disease without esophagitis 01/09/2017 ??? Primary osteoarthritis of one knee 01/09/2017 ??? Other asthma 01/09/2017 ??? Sleep related leg cramps 01/09/2017 ??? Other forms of angina pectoris ([facility]) 01/09/2017 ??? Essential (primary) hypertension 01/09/2017 ??? Hypersomnia due to medical condition 01/09/2017 ??? Chronic obstructive pulmonary disease ([facility]) 01/09/2017 ??? Personal history of traumatic brain injury 01/09/2017 Reports brief LOC. Age 17. ??? Restless legs syndrome 01/01/2017 ??? Obstructive sleep apnea 01/01/2017 ??? Cervicalgia 04/28/2015 ??? Other chronic pain 04/28/2015 Past Medical History: Diagnosis Date ??? Anxiety ??? Asthma ??? Atherosclerosis of coronary artery ??? Bladder cancer ([facility]) ??? Chest pain pain 10/23 ??? Chronic obstructive pulmonary disease (COPD) ([facility]/HCC) ??? Depression ??? Essential hypertension ??? GERD (gastroesophageal reflux disease) ??? History of diabetes mellitus ??? Obesity ??? Peripheral vascular disease (CMS/HCC) ??? Pure hypercholesterolemia ??? Sleep apnea does not use CPAP ??? Snoring ??? TIA (transient ischemic attack) Past Surgical History: Procedure Laterality Date ??? Cholecystectomy 2006 ??? HX C SECTION CLASSIC 1989 ??? HX CAROTID ENDARDECTOMY 2014 ??? HX TUBAL LIGATION 1989 ??? MI FOOT/TOES SURGERY PROC UNLISTED ??? TRANS URETHRAL RESECT BLADDER TUMOR 03/23/2022 TRANSURETHRAL RESECTION BLADDER TUMOR (TURBT) ??? Tympanostomy 2013 ??? URETEROSCOPY Left 03/23/2022 Left; URETEROSCOPY No medications prior to admission. Allergies Allergen Reactions ??? Penicillins Other and Urticaria unknown Reaction: Hives, ??? Azithromycin Unknown ??? Risperidone Other Reported her face getting swollen ??? Statins [Hmg-Coa-R Inhibitors] Other Causes muscle tightness ??? Haloperidol Other unknown ??? Codeine Itching ??? Penicillin G Other ??? Triazolam Unknown Family History: Family History Problem Relation Name Age of Onset ??? Depression Mother ??? Alcohol abuse Father ??? Depression Sister ??? Thyroid Disease Neg Hx Social History: Social History Socioeconomic History ??? Marital status: Single Tobacco Use ??? Smoking status: Every Day Packs/day: 0.50 Years: 40.00 Pack years: 20.00 Types: Cigarettes ??? Smokeless tobacco: Never ??? Tobacco comments: pt said she will quit in 09/2021 Vaping Use ??? Vaping Use: Never used Substance and Sexual Activity ??? Alcohol use: No ??? 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 Date last employed: 30 years ago Vital Signs: There were no vitals taken for this visit. Physical Exam: General: NAD Head/Neck: Normocephalic ENT: EOMI CV: Regular rate, regular rhythm Lungs: No increased respiratory effort Abdomen: Soft, non-distended, non tender Genitourinary: deferred Extremities: No edema Neuro: Awake, alert Labs: Recent Labs Component Name 03/11/22 1045 10/06/21 1600 10/21/20 0812 WBC 12.5* 10.2 9.7 HGB 14.9 13.5 14.0 HCT 46.2* 41.4 42.0 MCV 85.2 88.8 86.6 Recent Labs Component Name 03/11/22 1045 10/06/21 1600 10/21/20 0812 09/04/20 0729 NA - 140 - 138 CL - 104 - 104 CO2 25 27 26 24 BUN 18 18 24 21 CREATININE 1.18* 0.97* 0.81 0.7 CALCIUM 9.3 9.3 9.1 8.6 Recent Labs Component Name 10/06/21 1600 PROT 6.7 ALB 3.3* TBILI 0.2 AST 11 ALT 16 ALKPHOS 78 Recent Labs Component Name 10/21/20 0812 INR 1.0 No results for input(s): PHART, PO2ART, ZQV7HXD, BEART in the last 18744 hours. Lab results smartLinks are not currently available Micro: No results found for this or any previous visit (from the past 72 hour(s)). Imaging: none Assessment: Arnold Cruz is a 62 year old female with hx of HG T1 UCC who was found to have recurrence on surveillance cysto. Plan: -To OR for blue light cystoscopy, TURBT -Instil cysview 1 hour prior to procedure -pre op cipro I have seen and discussed this patient with Dr. Oliver. Kenan Argueta MD Urology Resident 01/18/2023 3:20 AM RMATION TECHNOLOGY DIRECTOR documented in this encounter OR Notes * Brief Op Note - Kenan Arugeta MD - 01/18/2023 9:12 AM CST Brief Op Note Procedure: Blue light cystoscopy and transurethral resection of bladder tumor Patient Name: Arnold Cruz Date of Service: 01/18/2023 Pre-Op Diagnosis: Malignant neoplasm of urinary bladder, unspecified site Post-Op Diagnosis: same Surgeon(s) and Role: * Jose Oliver MD - Primary * Kenan Argueta MD - Resident - Assisting Poultry Pathologist(s): none Anesthesia Type: general LMA Complications: none Findings: Areas at left lateral wall near previous resection scar, left dome and right dome resected and sent for analysis separately. Bilateral UOs visualized and spared. EBL: blood loss of 5 ml Urine Output : not recorded IV Fluid Intake: per anesthesia Drains: * No LDAs found * Specimen(s): ID Type Source Tests Collected by Time Destination A : Left bladder neck Biopsy, Excision Soft Tissue, Other PATHOLOGY TISSUE Kenan Argueta MD 01/18/2023 0918 B : Right posterior wall Biopsy, Excision Soft Tissue, Other PATHOLOGY TISSUE Kenan Argueta MD 01/18/2023 0925 C : Left dome Biopsy, Excision Soft Tissue, Other PATHOLOGY TISSUE Kenan Argueta MD 01/18/2023 0938 Implant(s): * No implants in log * Kenan Argueta MD RMATION TECHNOLOGY DIRECTOR * Operative - Jose Oliver MD - 01/18/2023 5:13 AM CST Operative Report NAME: ARNOLD CRUZ : 1960 AGE: 62 PROC DATE: 01/18/2023 SEX: F SURGEON: Kenan Argueta MD PROCEDURE: Blue light cystoscopy, transurethral resection of bladder tumor 2 cm to 5 cm. ATTENDING SURGEON: Jose Oliver MD RESIDENT: Kenan Argueta MD PREOPERATIVE DIAGNOSIS: Bladder cancer. POSTOPERATIVE DIAGNOSIS: Bladder cancer. ANESTHESIA: General, ETT. COMPLICATIONS: None. ESTIMATED BLOOD LOSS: 5 mL URINE OUTPUT: Not recorded. INTRAVENOUS FLUIDS: Per anesthesia. SPECIMENS: 1. Left bladder neck. 2. Right posterior wall. 3. Left dome. INDICATIONS FOR PROCEDURE: The patient is a 62-year-old female with a past medical history of high grade disease initially found on TURBT by an outside urologist in December 2021, noted to have concern for recurrence on recent office cystoscopy. After discussion of risks, benefits, and alternativesof the procedure, consent has been obtained. DESCRIPTION OF PROCEDURE: The patient was brought back to the operating room and placed in supine position. After induction of anesthesia and administration of IV antibiotics, the patient was then placed in dorsal lithotomy. Genitalia and perineum were prepped and draped in normal sterile fashion. A timeout was then performed. A 26-German resectoscope was then used to enter her bladder. A systematic cystoscopy was performed. There are areas of raised erythema at the left lateral wall near her prior resection scar. Her left ureteral orifice was identified within the resection scar and was slightly medial to the area of concern. There was also an area on the right posterior wall. We then identified the ureteral orifice. Prior to the procedure, the patient had instillation of Cysview. This was done by clean intermittent catheterization and the medication was allowed to dwell for one hour preprocedure. The blue light filter was then turned on and we identified an additional area at the left dome that was concerning. The previously mentioned areas of concern were also lighting up under blue light cystoscopy. Then, using monopolar cautery, we resected these areas down to the level of gross muscle. These areas were sent separately for analysis. There was no gross evidence of perforation. The hemostasis was achieved. Bilateral ureteral orifices were spared from the resection bed. There was clear efflux seen from both ureteral orifices. The patient's bladder was emptied and this concluded the procedure. The patient tolerated the procedure well and was awoken from anesthesia and transferred to PACU in stable condition. Dr. Oliver was present and participated in the procedure. PLAN: We will call the patient with pathology results and followup accordingly. She will discharge today. MD Jose Calderon MD JO/charu .[id number] .[id number] Doc ID: [id number] Voice Job ID: [id number] I was present for the entire procedure. Jose Oliver MD 01/19/2023 9:29 AM RMATION TECHNOLOGY DIRECTOR documented in this encounter Plan of Treatment Upcoming Encounters Date Type Department Care Team (Late st Contact Info) Description 01/19/2025 11:30 AM INFORMATION TECHNOLOGY DIRECTOR Procedure visit [facility] - Urology [address] [place] [address] [address] [place] [phone] Jose Oliver MD [address] [place] [id number] documented as of this encounter Goals Goal [...] Procedure Name Priority Date/Time Associated Diagnosis Comments GLUCOSE - POINT OF CARE Routine 01/18/2023 11:53 AM INFORMATION TECHNOLOGY DIRECTOR GLUCOSE - POINT OF CARE Routine 01/18/2023 10:19 AM INFORMATION TECHNOLOGY DIRECTOR PATHOLOGY TISSUE Routine 01/18/2023 9:18 AM INFORMATION TECHNOLOGY DIRECTOR Malignant neoplasm of urinary bladder, unspecified site (HCC) TRANSURETHRAL RESECTION BLADDER TUMOR (TURBT) 01/18/2023 9:12 AM INFORMATION TECHNOLOGY DIRECTOR Malignant neoplasm of urinary bladder, unspecified site (HCC) Special Needs Laser Powhatan stone confirmed ? Blue light laser / Reviewed 01/13 GLUCOSE - POINT OF CARE Routine 01/18/2023 8:13 AM INFORMATION TECHNOLOGY DIRECTOR documented in this encounter Results * (ABNORMAL) GLUCOSE - POINT OF CARE (01/18/2023 11:53 AM INFORMATION TECHNOLOGY DIRECTOR) Glucose WB/POC 204(H) 70 - 115 mg/dL 01/18/2023 11:54 AM INFORMATION TECHNOLOGY DIRECTOR [facility] Specimen Type Cap Fingerstick 2022 11:54 AM INFORMATION TECHNOLOGY DIRECTOR [facility] Blood BLOOD SPECIMEN / Unknown 01/18/2023 11:53 AM INFORMATION TECHNOLOGY DIRECTOR 01/18/2023 11:54 AM INFORMATION TECHNOLOGY DIRECTOR Jose Oliver MD LAB - POINT OF CAR E ORDERABLES [facility] [address] [place] [address], [place] [phone] * (ABNORMAL) GLUCOSE - POINT OF CARE (01/18/2023 10:19 AM INFORMATION TECHNOLOGY DIRECTOR) Glucose WB/POC 121(H) 70 - 115 mg/dL 01/18/2023 11:55 AM INFORMATION TECHNOLOGY DIRECTOR [facility] Specimen Type Cap Fingerstick 2022 11:55 AM INFORMATION TECHNOLOGY DIRECTOR [facility] Blood BLOOD SPECIMEN / Unknown 01/18/2023 10:19 AM INFORMATION TECHNOLOGY DIRECTOR 01/18/2023 11:55 AM INFORMATION TECHNOLOGY DIRECTOR Jose Oliver MD LAB - POINT OF CAR E ORDERABLES Performing Organization Address [facility] Co de Phone Number [facility] [address] [place] [id number], [place] [phone] * PATHOLOGY TISSUE (01/18/2023 9:18 AM INFORMATION TECHNOLOGY DIRECTOR) Case Report Surgical Pathology Report ? Case: [id number] ? Authorizing Provider: ??Jose Oliver MD ?Collected: ? 01/18/2023 09:18 AM ? Ordering Location: ? [facility] ?Received: ?01/18/2023 10:11 AM ? Pathologist: ? Nicole Glaser MD ? Specimens: ?? A) - Bladder Biopsy, Left bladder neck ? B) - Bladder Biopsy Wall, Right posterior wall ? C) - Bladder Biopsy Dome, Left dome ? 01/21/2023 7:59 AM [facility] Final Diagnosis Bladder, left neck, biopsy (A): - Denuded urothelium with focal cytologic atypia, see comment - Muscularis propria present Bladder, right posterior wall, biopsy (B): - Denuded urothelium with follicular cystitis and cystitis cystica - Muscularis propria not present Bladder, left dome, biopsy (C): - Benign, largely denuded urothelium with marked stromal inflammation and granulation tissue - Muscular propria present 01/21/2023 7:59 AM [facility] Microscopic Description and Comment Sections of all biopsies demonstrate largely denuded urothelium. In parts A and C, there is focal cytologic atypia of the urothelium with nuclear enlargement but CK20 immunostain does not show full thickness staining in the areas of histologic concern to support a diagnosis of carcinoma in situ. 01/21/2023 7:59 AM [facility] Clinical History The patient is a 62-year-old woman with a history of high-grade T1 bladder carcinoma. Surveillance cystoscopy revealed shaggy papillary changes with erythema along the right dome and erythema around the left ureteral orifice. 01/21/2023 7:59 AM [facility] Gross Description The requisition and specimen(s) are identified with the patient's name Arnold Cruz. Received in formalin, specimen A , are multiple pink-hawthorne tissues, 0.2-1.2 cm in greatest dimension and 1.5 x 1.0 x 0.2 cm in aggregate, submitted in toto in cassette A1. Received in formalin, specimen B , are 4 hawthorne-white tissues, 0.3-0.4 cm in greatest dimension and 0.9 x 0.2 x 0.1 cm in aggregate, submitted in toto in cassette B1. Received in formalin, specimen C , are 6 pink-hawthorne tissues, 0.2-0.6 cm in greatest dimension and 1.4 x 0.5 x 0.3 cm in aggregate, submitted in toto in cassette C1. DF 01/21/2023 7:59 AM [facility] PATHOLOGY LAB Disclaimer The performance characteristics of all immunohistochemical and indirect immunofluorescence stains (if any) cited in this report were determined by the Histopathology Laboratory of [facility]. Some of these tests were developed [...] and interpreted by the attending (teaching) pathologist. 01/21/2023 7:59 AM [facility] PATH[facility] Embedded Images 01/21/2023 7:59 AM [facility] PATH[facility] Biopsy, Excision URINARY BLADDER BIOPSY SPECIMEN / Unknown 01/18/2023 9:18 AM INFORMATION TECHNOLOGY DIRECTOR 01/18/2023 10:11 AM INFORMATION TECHNOLOGY DIRECTOR Comment:Pre-op diagnosis: Malignant neoplasm of urinary bladder, unspecified site Biopsy, Excision URINARY BLADDER BIOPSY SPECIMEN / Unknown 01/18/2023 9:25 AM INFORMATION TECHNOLOGY DIRECTOR 01/18/2023 10:11 AM INFORMATION TECHNOLOGY DIRECTOR Comment:Pre-op diagnosis: Malignant neoplasm of urinary bladder, unspecified site Biopsy, Excision URINARY BLADDER BIOPSY SPECIMEN / Unknown 01/18/2023 9:38 AM INFORMATION TECHNOLOGY DIRECTOR 01/18/2023 10:11 AM INFORMATION TECHNOLOGY DIRECTOR Comment:Pre-op diagnosis: Malignant neoplasm of urinary bladder, unspecified site Jose Oliver MD LAB - PATHOLOGY/CY TOLOGY ORDERABLES [facility] PATHOLOGY LAB [address] [place], [place] [id number] [place] [address] * (ABNORMAL) GLUCOSE - POINT OF CARE (01/18/2023 8:13 AM INFORMATION TECHNOLOGY DIRECTOR) Glucose WB/POC 170(H) 70 - 115 mg/dL 01/18/2023 8:15 AM [facility] Specimen Type Venous 01/18/2023 8:15 AM INFORMATION TECHNOLOGY DIRECTOR [facility] Blood BLOOD SPECIMEN / Unknown 01/18/2023 8:13 AM INFORMATION TECHNOLOGY DIRECTOR 01/18/2023 8:14 AM INFORMATION TECHNOLOGY DIRECTOR Jose Oliver MD LAB - POINT OF CAR E ORDERABLES [address] [address], [place] [phone] documented in this encounter Visit Diagnoses Diagnosis Malignant neoplasm of urinary bladder, unspecified site (HCC) Malignant neoplasm of urinary bladder, unspecified site (HCC) documented in this encounter Administered Medications Inactive Administered Medications - up to 3 most recent administrations Medication Order MAR Action Action Date Dose Rate Site 0.9% NaCl infusion at 20 mL/hr, Intravenous, PRE-OP CONTINUOUS, Starting on Wed01/18/23 at 0800, Until Wed01/18/23 at 1311, For Dialysis or Chronic Renal Failure patients. Use 500 ml bag and micro drip tubing, Pre-op 0.9% NaCl injection 1-10 mL 1-10 mL, Intracatheter, PRN, Other, peripheral line flush, Starting on Wed01/18/23 at 0755, Until Wed01/18/23 at 1311, Flush peripheral IV catheter with 1-10 mL of normal saline before and after medications and prn to clear blood from the line or to verify patency., Pre-op 0.9% NaCl injection 3 mL 3 mL, Intracatheter, EVERY 8 HOURS, First dose on Wed01/18/23 at 0800, Until Discontinued, Flush peripheral IV catheter with 3 mL of normal saline every 8 hours., Pre-op albuterol (Proventil;Ventolin) (5 MG/ML) 0.5% nebulizer solution 2.5 mg 2.5 mg, Inhalation, ONCE PRN, Shortness of Breath, Wheezing, 1 dose, Starting on Wed01/18/23 at 0959, Until Wed01/18/23 at 1013, PACU $ Given 01/18/2023 10:13 AM INFORMATION TECHNOLOGY DIRECTOR 2.5 mg diphenhydrAMINE (Benadryl) injection 25 mg 25 mg, Intravenous, ONCE PRN, Nausea/Vomiting, 1 dose, Starting on Wed01/18/23 at 0959, Until Wed01/18/23 at 1311, Second choice, use if first choice was ineffective., PACU diphenhydrAMINE (Benadryl) injection 25 mg 25 mg, Intravenous, POST-OP MULTIPLE, Starting on Wed01/18/23 at 0959, Until Wed01/18/23 at 1311, IV for itching - may repeat x1 dose in 15 minutes., PACU fentaNYL (PF) (Sublimaze) injection 25 mcg 25 mcg, Intravenous, EVERY 5 MIN PRN, Mild Pain, 4 doses, Starting on Wed01/18/23 at 0959, Until Wed01/18/23 at 1311, Maximum total of 4 doses. If patient [...] documented in the MAR., PACU $ Given 01/18/2023 10:30 AM INFORMATION TECHNOLOGY DIRECTOR 25 mcg $ Given 01/18/2023 10:20 AM INFORMATION TECHNOLOGY DIRECTOR 25 mcg fentaNYL (PF) (Sublimaze) injection 50 mcg 50 mcg, Intravenous, EVERY 5 MIN PRN, Moderate Pain, 4 doses, Starting on Wed01/18/23 at 0959, Until Wed01/18/23 at 1311, Maximum total of 4 doses. If patient [...] must be documented in the MAR., PACU hexaminolevulinate (Cysview) intravesical instillation 100 mg 100 mg, Intravesical, ONCE, 1 dose, On Wed01/18/23 at 0645, for immediate use only, if unable to use, refrigerate reconstituted solution at 2-8 C in the syringe and use within 2 hours of the preparation, Pre-op $ Given 01/18/2023 8:10 AM INFORMATION TECHNOLOGY DIRECTOR 100 mg hydrALAZINE (Apresoline) injection 5 mg 5 mg, Intravenous, POST-OP MULTIPLE, Starting on Wed01/18/23 at 0959, Until Wed01/18/23 at 1311, IV given slowly over 1 minute, up to 20 mg. Repeat 5 mg IV dose every 10-15 minutes for sustained hypertension SBP greater than 180, DBP greater than 100., PACU HYDROmorphone (Dilaudid) injection 0.5 mg 0.5 mg, Intravenous, EVERY 10 MIN PRN, Severe Pain, 4 doses, Starting on Wed01/18/23 at 0959, Until Wed01/18/23 at 1311, Maximum total of 4 doses If patient [...] must be documented in the MAR., PACU ipratropium (Atrovent) nebulizer solution 0.5 mg 0.5 mg, Inhalation, ONCE PRN, Shortness of Breath, Wheezing, 1 dose, Starting on Wed01/18/23 at 0959, Until Wed01/18/23 at 1014, PACU $ Given 01/18/2023 10:14 AM INFORMATION TECHNOLOGY DIRECTOR 0.5 mg labetalol (Normodyne; Trandate) injection 5 mg 5 mg, Intravenous, POST-OP MULTIPLE, Starting on Wed01/18/23 at 0959, Until Wed01/18/23 at 1311, IV given slowly over 1 minute up to 20 mg. Repeat every 10-15 minutes in 5 mg doses. Hold if heart rate is less than 60. Give for hypertension SBP greater than 180, DBP greater than 100., PACU lactated ringers infusion at 75 mL/hr, Intravenous, CONTINUOUS, Starting on Wed01/18/23 at 0800, Until Wed01/18/23 at 1311, Pre-op $ New Bag/Syringe 01/18/2023 8:12 AM INFORMATION TECHNOLOGY DIRECTOR 75 mL/hr lactated ringers infusion at 125 mL/hr, Intravenous, CONTINUOUS, Starting on Wed01/18/23 at 1015, Until Wed01/18/23 at 1311, PACU lidocaine PF (Xylocaine MPF) 1 % injection 0.2 mL 0.2 mL, Intradermal, ONCE PRN, For IV start pain, 1 dose, Starting on Wed01/18/23 at 0755, Until Wed01/18/23 at 1311, May be used locally to anesthetize prior to IV insertion, if patient has NKA to Lidocaine., Pre-op naloxone (Narcan) injection 0.04 mg 0.04 mg, Intravenous, POST-OP MULTIPLE, Starting on Wed01/18/23 at 0959, Until Wed01/18/23 at 1311, If respiration rate is less than 7 per minute administer IV every 1 minute until respirations are greater than 12 per minute. Notify anesthesia immediately., PACU ondansetron (Zofran) injection 4 mg 4 mg, Intravenous, ONCE PRN, Nausea/Vomiting, 1 dose, Starting on Wed01/18/23 at 0959, Until Wed01/18/23 at 1311, Third choice, use if first and second choice was ineffective., PACU oxyCODONE-acetaminophen (Percocet) 5-325 MG tablet 1 tablet 1 tablet, Oral, Once, 1 dose, On Wed01/18/23 at 1115, Patient preference for lesser PRN pain meds may be honored when the patient requests a less strong medication, a lower dose, or a less intrusive route of administration when the lesser drug, dose and route have been ordered for the patient. This patient request must be documented in the MAR. $ Given 01/18/2023 11:19 AM INFORMATION TECHNOLOGY DIRECTOR 1 tablet prochlorperazine (Compazine) injection 10 mg 10 mg, Intravenous, ONCE PRN, Nausea/Vomiting, 1 dose, Starting on Wed01/18/23 at 0959, Until Wed01/18/23 at 1311, First choice, PACU documented in this encounter Active and Recently Administered Medications Times are shown in INFORMATION TECHNOLOGY DIRECTOR. Scheduled Medication Order 01/16/2023 01/17/2023 01/18/2023 0.9% NaCl injection 3 mL(Linked Group 1) 3 mL, Intracatheter, EVERY 8 HOURS, First dose on Wed01/18/23 at 0800, Until Discontinued, Flush peripheral IV catheter with 3 mL of normal saline every 8 hours., Pre-op 0800 (Due) ciprofloxacin (Cipro) 400 mg in 200 mL IVPB (COMPLETED) 400 mg, at 200 mL/hr, Intravenous, INTRA-OP ONCE, 1 dose, On Wed01/18/23 at 0800, Indication for anti-infective therapy: Surgical prophylaxis, Pre-op 0900 ($ Given - Prov ider: Flavia Snyder Asst) diphenhydrAMINE (Benadryl) injection 25 mg 25 mg, Intravenous, POST-OP MULTIPLE, Starting on Wed01/18/23 at 0959, Until Wed01/18/23 at 1311, IV for itching - may repeat x1 dose in 15 minutes., PACU hexaminolevulinate (Cysview) intravesical instillation 100 mg (COMPLETED) 100 mg, Intravesical, ONCE, 1 dose, On Wed01/18/23 at 0645, for immediate use only, if unable to use, refrigerate reconstituted solution at 2-8 C in the syringe and use within 2 hours of the preparation, Pre-op 0810 ($ Given - Prov ider: Jacquelin Guillen RN - Comment: given by NETWORK CONTROL OPERATORS SUPERVISOR) hydrALAZINE (Apresoline) injection 5 mg 5 mg, Intravenous, POST-OP MULTIPLE, Starting on Wed01/18/23 at 0959, Until 01/18/23 at 1311, IV given slowly over 1 minute, up to 20 mg. Repeat 5 mg IV dose every 10-15 minutes for sustained hypertension SBP greater than 180, DBP greater than 100., PACU labetalol (Normodyne; Trandate) injection 5 mg 5 mg, Intravenous, POST-OP MULTIPLE, Starting on 01/18/23 at 0959, Until 01/18/23 at 1311, IV given slowly over 1 minute up to 20 mg. Repeat every 10-15 minutes in 5 mg doses. Hold if heart rate is less than 60. Give for hypertension SBP greater than 180, DBP greater than 100., PACU naloxone (Narcan) injection 0.04 mg 0.04 mg, Intravenous, POST-OP MULTIPLE, Starting on Wed01/18/23 at 0959, Until Wed01/18/23 at 1311, If respiration rate is less than 7 per minute administer IV every 1 minute until respirations are greater than 12 per minute. Notify anesthesia immediately., PACU oxyCODONE-acetaminophen (Percocet) 5-325 MG tablet 1 tablet (COMPLETED) 1 tablet, Oral, Once, 1 dose, On Wed01/18/23 at 1115, Patient preference for lesser PRN pain meds may be honored when the patient requests a less strong medication, a lower dose, or a less intrusive route of administration when the lesser drug, dose and route have been ordered for the patient. This patient request must be documented in the MAR. 1119 ($ Given - Prov ider: Rosalinda Casey RN) Continuous Medication Order 01/16/2023 01/17/2023 01/18/2023 0.9% NaCl infusion at 20 mL/hr, Intravenous, PRE-OP CONTINUOUS, Starting on Wed01/18/23 at 0800, Until Wed01/18/23 at 1311, For Dialysis or Chronic Renal Failure patients. Use 500 ml bag and micro drip tubing, Pre-op 0800 (Due) lactated ringers infusion at 75 mL/hr, Intravenous, CONTINUOUS, Starting on Wed01/18/23 at 0800, Until Wed01/18/23 at 1311, Pre-op 0812 ($ New Bag/Syri nge - Provider: Jacquelin Guillen RN) lactated ringers infusion at 125 mL/hr, Intravenous, CONTINUOUS, Starting on Wed01/18/23 at 1015, Until Wed01/18/23 at 1311, PACU 1015 (Due) PRN Medication Order 01/16/2023 01/17/2023 01/18/2023 0.9% NaCl injection 1-10 mL(Linked Group 1) 1-10 mL, Intracatheter, PRN, Other, peripheral line flush, Starting on Wed01/18/23 at 0755, Until Wed01/18/23 at 1311, Flush peripheral IV catheter with 1-10 mL of normal saline before and after medications and prn to clear blood from the line or to verify patency., Pre-op albuterol (Proventil;Ventolin) (5 MG/ML) 0.5% nebulizer solution 2.5 mg (COMPLETED)(Linked Group 2) 2.5 mg, Inhalation, ONCE PRN, Shortness of Breath, Wheezing, 1 dose, Starting on Wed01/18/23 at 0959, Until Wed01/18/23 at 1013, PACU 1013 ($ Given - Prov ider: Cyndy Pascual RN) diphenhydrAMINE (Benadryl) injection 25 mg 25 mg, Intravenous, ONCE PRN, Nausea/Vomiting, 1 dose, Starting on Wed01/18/23 at 0959, Until Wed01/18/23 at 1311, Second choice, use if first choice was ineffective., PACU fentaNYL (PF) (Sublimaze) injection 25 mcg 25 mcg, Intravenous, EVERY 5 MIN PRN, Mild Pain, 4 doses, Starting on Wed01/18/23 at 0959, Until Wed01/18/23 at 1311, Maximum total of 4 doses. If patient [...] must be documented in the MAR., PACU 1020 ($ Given - Prov ider: Cyndy Pascual RN)1030 ($ Given - Provider: Cyndy Pascual RN) fentaNYL (PF) (Sublimaze) injection 50 mcg 50 mcg, Intravenous, EVERY 5 MIN PRN, Moderate Pain, 4 doses, Starting on Wed01/18/23 at 0959, Until Wed01/18/23 at 1311, Maximum total of 4 doses. If patient [...] must be documented in the MAR., PACU HYDROmorphone (Dilaudid) injection 0.5 mg 0.5 mg, Intravenous, EVERY 10 MIN PRN, Severe Pain, 4 doses, Starting on Wed01/18/23 at 0959, Until Wed01/18/23 at 1311, Maximum total of 4 doses If patient [...] must be documented in the MAR., PACU ipratropium (Atrovent) nebulizer solution 0.5 mg (COMPLETED)(Linked Group 2) 0.5 mg, Inhalation, ONCE PRN, Shortness of Breath, Wheezing, 1 dose, Starting on Wed01/18/23 at 0959, Until Wed01/18/23 at 1014, PACU 1014 ($ Given - Prov ider: Cyndy Pascual RN) lidocaine PF (Xylocaine MPF) 1 % injection 0.2 mL 0.2 mL, Intradermal, ONCE PRN, For IV start pain, 1 dose, Starting on Wed01/18/23 at 0755, Until Wed01/18/23 at 1311, May be used locally to anesthetize prior to IV insertion, if patient has NKA to Lidocaine., Pre-op ondansetron (Zofran) injection 4 mg 4 mg, Intravenous, ONCE PRN, Nausea/Vomiting, 1 dose, Starting on Wed01/18/23 at 0959, Until Wed01/18/23 at 1311, Third choice, use if first and second choice was ineffective., PACU prochlorperazine (Compazine) injection 10 mg 10 mg, Intravenous, ONCE PRN, Nausea/Vomiting, 1 dose, Starting on Wed01/18/23 at 0959, Until Wed01/18/23 at 1311, First choice, PACU Linked Groups Order Group 1: SALINE LOCK, INSERT AND MAINTAIN (CANCELED) Routine, CONTINUOUS, Starting on Wed01/18/23 at 0800, Until Specified, Pre-op, New collection And 0.9% NaCl injection 3 mLJump to med 3 mL, Intracatheter, EVERY 8 HOURS, First dose on Wed01/18/23 at 0800, Until Discontinued, Flush peripheral IV catheter with 3 mL of normal saline every 8 hours., Pre-op And 0.9% NaCl injection 1-10 mLJump to med 1-10 mL, Intracatheter, PRN, Other, peripheral line flush, Starting on Wed01/18/23 at 0755, Until Wed01/18/23 at 1311, Flush peripheral IV catheter with 1-10 mL of normal saline before and after medications and prn to clear blood from the line or to verify patency., Pre-op Group 2: albuterol (Proventil;Ventolin) (5 MG/ML) 0.5% nebulizer solution 2.5 mg (COMPLETED)Jump to med 2.5 mg, Inhalation, ONCE PRN, Shortness of Breath, Wheezing, 1 dose, Starting on Wed01/18/23 at 0959, Until Wed01/18/23 at 1013, PACU And ipratropium (Atrovent) nebulizer solution 0.5 mg (COMPLETED)Jump to med 0.5 mg, Inhalation, ONCE PRN, Shortness of Breath, Wheezing, 1 dose, Starting on Wed01/18/23 at 0959, Until Wed01/18/23 at 1014, PACU documented in this encounter Care Teams Port Traffic Manager Relationship Specialty Start Date End Date Neva Holden MD [address] [place] [phone] PCP - General 05/06/20 05/25/23 documented as of this encounter
--- OUTSIDE RECORDS SUMMARY | 2024-11-12 04:43 | XMS_ITS | Encounter Summary ---
Author Organization [facility] Address [address] [place] [address] Care Team Providers Care Care Provider Name Role Phone Neva Holden MD Primary Care Provider [phone] Reason for Visit * Reason Onset Date Comments Results 01/31/2022 Encounter Details Date Type Department Care Team (Late st Contact Info) Description 01/31/2022 Telephone [facility] Pulmonary, Critical Care and Sleep Medicine [address] [place] [phone] Bora Ferreira MD [address] [place] [address] Results Social History Tobacco Use Types Packs/Day [...] encounter Miscellaneous Notes * Telephone Encounter - Bora Ferreira MD - 01/31/2022 6:15 PM CDT I spoke with patient Rody Zaidi on 01/31/2022. Patient recently diagnosed with bladder cancer and underwent resection. Had a CAT scan of chest, abdomen and pelvis in january 2022 reported normal lung Chest. I told patient to bring the CD images of her CAT scan for the next pulmonary office visit. No need for Low dose CT chest for now and patient will not need peer to peer review for CAT scan. Dr.Raja Hanna [facility] Pulmonary & Critical Care Fellow Division of Pulmonary, Critical Care and Sleep Medicine [facility] Pager:[phone] documented in this encounter Plan of Treatment Upcoming Encounters Date Type Department Care Team (Late st Contact Info) Description 01/19/2025 11:30 AM HEALTH AND PHYSICAL EDUCATION PROFESSOR Procedure visit [facility] - Urology [address] [place] [address] [address] [place] [phone] Jose Oliver MD [address] OF [place]OLOGIC [place] [phone] documented as of this encounter Goals Goal [...] on filedocumented in this encounter Care Teams Care Provider Relationship Specialty Start Date End Date Neva Holden MD [address] [place] [phone] PCP - General 05/06/20 05/25/23 documented as of this encounter
--- OUTSIDE RECORDS SUMMARY | 2024-11-12 04:43 | XMS_ITS | Encounter Summary ---
Author Organization [facility] Address [address] [place] [address] Care Team Providers Care Acute Care Clinical Nurse Specialist Name Role Phone Neva Holden MD Primary Care Provider Encounter Details Date Type Department Care Team (Late Contact Info) Description 12/21/2022 Orders Only [facility] Urology [address] [place] [address] Rhonda Lozada RN Malignant neoplasm of urinary bladder, unspecified site (HCC) ; Microscopic hematuria Social History Tobacco Use Types [...] (Late Contact Info) Description 01/19/2025 11:30 AM HANDBAG FINISHER Procedure visit [facility] - Urology [address] [place] [address] [address] [place] [phone] Jose Oliver MD [address] [place] [phone] documented as of this encounter Goals Goal [...] of urinary bladder, unspecified site (HCC)- Primary Microscopic hematuria documented in this encounter Care Teams Acute Care Clinical Nurse Specialist Relationship Specialty Start Date End Date Neva Holden MD [address] [place] [phone] PCP - General 05/06/20 05/25/23 documented as of this encounter
--- OUTSIDE RECORDS SUMMARY | 2024-11-12 04:43 | XMS_ITS | Encounter Summary ---
Author Organization [facility] Address [address] [place] [address] Care Team Providers Care Machine Engraver Name Role Phone Neva Holden MD Primary Care Provider [phone] Deisi Andrews MD Primary Care Provider [phone] Matti Balderas MD Primary Care Provider Encounter Details Date Type Department Care Team (Late st Contact Info) Description 02/13/2022 Lab Requisition [facility] Care Pathology Lab [address] [place] [address] Jose Oliver MD [address] [place] [phone] Illness, unspecified Social History Tobacco Use Types Packs/Day Years [...] (Late Contact Info) Description 01/19/2025 11:30 AM CERTIFIED ENERGY MANAGER Procedure visit [facility] - Urology [address] [place] [address] [address] [place] [address] Jose Oliver MD [address] [place] [address] documented as of this encounter Goals Goal [...] Procedure Name Priority Date/Time Associated Diagnosis Comments PATH CONSULT ON REFERRED CASE Routine 02/13/2022 8:57 AM CDT Illness, unspecified documented in this encounter Results * PATH CONSULT ON REFERRED CASE (02/13/2022 8:57 AM CDT) Final Diagnosis A. Urinary bladder, transurethral resection, ([facility]C: [id number]; 01/21/2022): - Invasive urothelial cell carcinoma, high-grade - No definitive detrusor muscle seen B. Urinary bladder, left ureteral orifice transurethral resection, ([facility]C: [id number]; 01/21/2022): - Invasive urothelial cell carcinoma, high-grade - Detrusor muscle present, negative for tumor invasion 02/16/2022 1:52 PM CDT [facility] Microscopic Description and Comment Performed. 02/16/2022 1:52 PM CDT [facility] Clinical History 02/16/2022 1:52 PM CDT [facility] Materials Received Received are 3 slide(s) labeled [id number] along with a copy of the outside pathology report. The materials originate from [facility], Department of Pathology, [address] [place] [address], [id number]. All original materials are returned to the referring institution, along with a copy of our final report. 02/16/2022 1:52 PM CDT [facility] PATHOLOGY LAB Disclaimer The performance characteristics of all immunohistochemical and indirect immunofluorescence stains (if any) cited in this report were determined by the Histopathology Laboratory of [facility]. Some of these tests were developed by [...] the attending (teaching) pathologist. 02/16/2022 1:52 PM CDT [facility] PATH[facility] Case Report Surgical Pathology Report ? Case: [id number] ? Authorizing Provider: ??Jose Oliver MD ?Collected: ? 02/13/2022 08:57 AM ? Ordering Location: ? [facility] Pathology Lab ? Received: ?02/13/2022 08:57 AM ? Pathologist: ? Gian Jay MD ? Specimen: ?Slide Consultation ? 02/16/2022 1:52 PM CDT [facility] Embedded Images 02/16/2022 1:52 PM CDT [facility] LAB Pathology/Cytolo gy SURGICAL PATHOLOGY CONSULTATION AND REPORT ON REFERRED SLIDES PREPARED ELSEWHERE / Unknown 02/13/2022 8:57 AM CDT 02/13/2022 8:57 AM CDT Jose Oliver MD LAB - PATHOLOGY/CY TOLOGY ORDERABLES Performing Organization Address City/State/[facility] Co de Phone Number [facility] PATHOLOGY LAB [address] [phone] documented in this encounter Visit Diagnoses Diagnosis Illness, unspecified documented in this encounter Care Teams Machine Engraver Relationship Specialty Start Date End Date Neva Holden MD [address] [place] [phone] PCP - General 05/06/20 05/25/23 Deisi Andrews MD [address] [place] [phone] PCP - General Family Medicine 05/26/23 10/26/24 Matti Balderas MD [address] [place] [phone] PCP - General Family Medicine 10/27/24 documented as of this encounter
--- OUTSIDE RECORDS SUMMARY | 2024-11-12 04:43 | XMS_ITS | Encounter Summary ---
Author Organization [facility] Address [address] [facility] [place] [address] Care Team Providers Care Cook Enchilada Name Role Phone Deisi Andrews MD Primary Care Provider Reason for Visit * Reason Comments Establish Care Cysto Encounter Details Date Type Department Care Team ([facility] Contact Info) Description 10/22/2023 11:30 AM FOLDING 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 Procedure visit [facility] - Urology [address] [place] [address] [address] [place] [phone] Jose Oliver MD [address] [place] [phone] Malignant neoplasm of urinary bladder, unspecified site [...] Sign Reading Time Taken Comments Blood Pressure 97/69 10/22/2023 11:31 AM FOLDING 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 Pulse 92 10/22/2023 11:31 AM FOLDING 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 Temperature 36.3 ??C (97.3 ??F) 10/22/2023 11:[address] Respiratory Rate 20 10/22/2023 11:31 AM FOLDING 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 Oxygen Saturation 96% 10/22/2023 11:31 AM FOLDING 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 Inhaled Oxygen Concentration - - Weight 83.5 kg (184 lb) 10/22/2023 11:31 AM FOLDING 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 Height - - Body Mass Index 32.59 02/22/2023 10:41 AM CDT documented in this encounter Functional [...] No 01/18/2023 documented as of this encounter Procedure Notes * Jose Oliver MD - 10/22/2023 1:34 PM CST Urology Procedure Note DATE OF SERVICE: 10/22/2023 HPI: 62 year old female with 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 01/2022: TURBT, HG pT1 , CT with left hydroureter and lateral wall lesion 03/2022: Repeat TURBT: no malignancy 07/2022: Office cysto, negative 11/2022: Office cysto: erythematous changes of bladder mucosa 01/2023: Bluelight cysto, TURBT: no malignancy 04/2023: office cysto, negative Last tumor: 01/2022 Last cysto: 01/2023 Last imagin10/2023 PROCEDURE: Flexible cystoscopy ATTENDING: Jose Oliver MD RESIDENT: Cisco Portillo MD DESCRIPTION: Timeout was preformed to confirm patient and procedure. Patient was placed in lithotomy position, prepped and draped. Urojet was instilled in the urethra and allowed to sit for 5 minutesand the procedure was subsequently preformed. Flexible cystoscope was inserted and navigated through the urethra without abnormal findings. The bladder had a mounded erythematous lesion overlying the left ureteral orifice. The right ureter appeared normal. She had significant bladder contractions limiting filling of her bladder. The scope was retroflexed to complete the examination. At this point the flexible cystoscope was removed. PLAN: -TURBT, left retrograde, left stent -Empiric bactrim x7 days given her symptoms. Also gave Levsin PRN. -Discussed the CT read of intramural abscess on her CT. She had a recent colonoscopy last month with multple biopsies. Suggested she contact her GI specialist. She has no GI complaints today. Jose Oliver MD 10/22/2023 1:34 PM ING 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 documented in this encounter Plan of Treatment Upcoming Encounters Date Type Department Care Team (Late st Contact Info) Description 01/19/2025 11:30 AM FOLDING 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 Procedure visit [facility] - Urology [address] [place] [address] [address] [place] [phone] Jose Oliver MD [facility] [place] [address] documented as of this encounter Goals Goal [...] - POINT OF CARE (AMB) [facility] Routine 10/22/2023 10:55 AM FOLDING 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 Malignant neoplasm of urinary bladder, unspecified site (HCC) documented in this encounter Results * URINALYSIS AUTO - POINT OF CARE (AMB) [facility] (10/22/2023 10:55 AM FOLDING 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) Glucose UA - [facility] [address] Bilirubin UA POCT - [facility] [address] Ketones UA POCT - [facility] [address] Specific Falls Of Rough UA 1.[address] [facility] [address] Blood Urine POCT 3+ [facility] [address] pH UA 5.[address] [facility] [address] Protein UA 1+ [facility] [address] Urobilinogen UA - [facility] [address] Nitrite UA - [facility] [address] WBC UA 15+ [facility] [address] Urine URINE / Unknown 10/22/2023 1 0:55 AM FOLDING 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 Jose Oliver MD LAB - POINT OF CAR E ORDERABLES [facility] [address] [place] [address], [facility] [phone] documented in this encounter Visit Diagnoses Diagnosis Malignant neoplasm of urinary bladder, unspecified site (HCC)- Primary Microscopic hematuria documented in this encounter Care Teams Cook Enchilada Relationship Specialty Start Date End Date Deisi Andrews MD [address] [phone] PCP - General Family Medicine 05/26/23 10/26/24 documented as of this encounter
--- OUTSIDE RECORDS SUMMARY | 2024-11-12 04:43 | XMS_ITS | Encounter Summary ---
Author Organization [facility] Address [address] [place] [address] Care Team Providers Care Supplier Specialist Name Role Phone Neva Holden MD Primary Care Provider [phone] Encounter Details Date Type Department Care Team (Late Contact Info) Description 01/07/2023 Orders Only [facility] [address] [place] [address] Rhonda Lozada RN Social History Tobacco Use Types Packs/Day Years [...] on file documented as of this encounter Progress Notes * Rhonda Lozada RN - 01/07/2023 9:39 AM CST Opened in error ERSAL BANKER documented in this encounter Plan of Treatment Upcoming Encounters Date Type Department Care Team (Late Contact Info) Description 01/19/2025 11:30 AM UNIVERSAL BANKER Procedure visit [facility] - Urology [address] [place] [address] [address] [place] [address] Jose Oliver MD [address] [place] [address] documented as of this encounter Goals Goal [...] on filedocumented in this encounter Care Teams Supplier Specialist Relationship Specialty Start Date End Date Neva Holden MD [address] [place] [phone] PCP - General 05/06/20 05/25/23 documented as of this encounter
--- OUTSIDE RECORDS SUMMARY | 2024-11-12 04:43 | XMS_ITS | Encounter Summary ---
Author Organization [facility] Address [address] [facility] [place] [address] Care Team Providers Care Sales Route Driver Name Role Phone Neva Holden MD Primary Care Provider [phone] Reason for Visit * Reason Comments Cystoscopy Encounter Details Date Type Department Care Team (Late st Contact Info) Description 12/04/2022 1:00 PM ANTI TANK MISSILEMAN Procedure visit [facility] Urology [address] [place] [address] Joes Oliver MD [address] [place] [address] Malignant neoplasm of urinary bladder, [...] Sign Reading Time Taken Comments Blood Pressure - - Pulse 96 12/04/2022 12:56 PM ANTI TANK MISSILEMAN Temperature 36.2 ??C (97.1 ??F) 12/04/2022 12:[address] Respiratory Rate - - Oxygen Saturation 98% 12/04/2022 12:56 PM ANTI TANK MISSILEMAN Inhaled Oxygen Concentration - - Weight - - Height - - Body Mass Index - - documented in this encounter Procedure Notes * Jose Oliver MD - 12/04/2022 1:14 PM CST Images from the original note were not included. Urologic Surgery Cystoscopy Note Date of Operation: 12/04/2022 Preoperative Diagnosis: bladder tumor Postoperative Diagnosis: same Surgeon: Jose Oliver MD Resident(s): Estuardo Argueta MD Procedure Performed: 1) Cystoscopy Anesthesia: Local lidocaine jelly per urethra Implant/Drains: none Specimen(s): cytology Estimated Blood Loss: minimal Complications: none Indications for Operation: Rody Zaidi is a 61 year old female with history of bladder mass (high grade pT1). Underwent repeat TURBT with diagnostic left ureteroscopy and removal of left ureteral stent in 03/2022. Intraoperatively patient found to have no new obvious masses/tumors but irregular edematous erythematous tissueencircling left UO. Previous resection site and tissue surrounding left UO both biopsied, path negative. Last negative cysto 07/2022. ?? Of note, patient c/o urinary urgency and urge incontinence. States symptoms started after first TURBT in 01/[address] Santa. Did not improve after stent removal in 03/2022 and are still present and bothersome to patient. We trialed oxybutynin at last visit but she denies improvement. ?? Path: 03/23/22 - Urinary bladder, transurethral resection of bladder tumor: 1. Negative for malignancy 2. Acute and chronic inflammation, fibrosis, and dystrophic calcification consistent with biopsy site changes 3. Detrusor muscle present, negative for tumor invasion Procedure in Detail: The patient was properly [...] Retroflexion of the scope was performed. There was shaggy papillary changes with erythema along the right dome. There was erythema around the left ureteral orifice. The scope was removed and urethra re-inspected. There were no significant complications and the patient tolerated the procedure. The cystoscope wasin proper working condition at the end of the procedure. Jose Rader MD, was present during the entire procedure. Follow Up: Blue light cystoscopy and transurethral resection of bladder tumor Stop oxybutynin, Trial mirabegron 25mg Jose Oliver MD 12/04/2022 1:14 PM Low risk: first scope 6-9 months, then annual surveillance for 5 years Int risk: first scope at 3 months, then every 3-6 months for 2 years, 6-12 months for years 3 and 4, then annually thereafter High risk: first scope at 3 months, then every 3 months for 2 years, every 6 months for years 3 and4, then annually thereafter TANK MISSILEMAN documented in this encounter Plan of Treatment Upcoming Encounters Date Type Department Care Team (Late st Contact Info) Description 01/19/2025 11:30 AM ANTI TANK MISSILEMAN Procedure visit [facility] - Urology [address] [place] [address] [address] [place] [phone] Jose Oliver MD [address] [place] [address] [place] [phone] documented as of this encounter Goals Goal [...] - POINT OF CARE (AMB) [facility] Routine 12/04/2022 Malignant neoplasm of urinary bladder, unspecified site (HCC) documented in this encounter Results * URINALYSIS AUTO - POINT OF CARE (AMB) [facility] (12/04/2022) Glucose UA NEG Bilirubin UA POCT NEG Ketones UA POCT NEG Specific [place] UA 1.025 Blood Urine POCT NEG pH UA 6.0 Protein UA 1+ 0.3g/L Urobilinogen UA - 3.5umol/L Nitrite UA NEG WBC UA 1+ flip/uL Urine URINE / Unknown 12/04/2022 Jose Oliver MD LAB - POINT OF CAR E ORDERABLES documented in this encounter Visit Diagnoses Diagnosis Malignant neoplasm of urinary bladder, unspecified site (HCC)- Primary documented in this encounter Care Teams Sales Route Driver Relationship Specialty Start Date End Date Neva Holden MD [address] [place] [phone] PCP - General 05/06/20 05/25/23 documented as of this encounter
--- OUTSIDE RECORDS SUMMARY | 2024-11-12 04:43 | XMS_ITS | Encounter Summary ---
Author Organization [facility] Address [address] [facility] [place] [address] Care Team Providers Care Used Car Make Ready Mechanic Name Role Phone Neva Holden MD Primary Care Provider Encounter Details Date Type Department Care Team (Late Contact Info) Description 08/14/2022 Orders Only [facility] [address] [place] [address] Jose Oliver MD [address] DIV [place] [address] Social History Tobacco Use Types [...] (Late Contact Info) Description 01/19/2025 11:30 AM CORPORATE HEALTH CONSULTANT Procedure visit [facility] Urology [address] [place] [address] [address] [place] [phone] Jose Oliver MD [address] [place] [address] documented as of this encounter Goals Goal [...] Procedure Name Priority Date/Time Associated Diagnosis Comments CYTOLOGY NON-CHIEF WHEELAGE CLERK 08/14/2022 11:5 3 AM CDT documented in this encounter Results * CYTOLOGY NON-CHIEF WHEELAGE CLERK (08/14/2022 11:53 AM CDT) A Source [facility] Comment:Bladder washings A Gross Description [facility] Comment: The specimen is received with multiple patient identifier(s), labeled bladder washings and consists of 50 cc(s) of yellow fluid. One ThinPrep slide prepared and stained with Papanicolaou stain. ??Gross exam(s) performed at: [facility] ??[address] [facility] [id number] ??Lathmaker: TERE KO MD A Diagnosis [facility] Comment: Atypical cells present of undetermined significance. Atypical urothelial cells present. Suggest clinically appropriate follow up. Test Performed at: [address] ??[id number] TERE KO MD 08/14/2022 11:5 3 AM CDT 08/18/2022 3:35 AM CDT Jose Oliver MD LAB - PATHOLOGY/CY TOLOGY ORDERABLES [facility] [address] [place] [address] documented in this encounter Visit Diagnoses Not on filedocumented in this encounter Care Teams Used Car Make Ready Mechanic Relationship Specialty Start Date End Date Neva Holden MD [address] [place] [phone] PCP - General 05/06/20 05/25/23 documented as of this encounter
--- OUTSIDE RECORDS SUMMARY | 2024-11-12 04:43 | XMS_ITS | Encounter Summary ---
Author Organization [facility] Address [address] [facility] [place] [address] Care Team Providers Care Skiver Hand Name Role Phone Deisi Andrews MD Primary Care Provider [phone] Encounter Details Date Type Department Care Team (Latest Contact Info) Description 10/22/2023 Travel Social History Tobacco Use Types Packs/Day [...] st Contact Info) Description 01/19/2025 11:30 AM INSTRUCTOR OF SOCIOLOGY Procedure visit [facility] - Urology [address] [facility] [address] [place] [address] Jose Oliver MD [address] [place] [address] documented as of this encounter Goals Goal [...] on filedocumented in this encounter Care Teams Skiver Hand Relationship Specialty Start Date End Date Deisi Andrews MD [address] [phone] PCP - General Family Medicine 05/26/23 10/26/24 documented as of this encounter
--- OUTSIDE RECORDS SUMMARY | 2024-11-12 04:43 | XMS_ITS | Encounter Summary ---
Author Organization [facility] Address [address] [facility] [place] [address] Care Team Providers Care Campground Manager Name Role Phone Neva Holden MD Primary Care Provider [phone] Reason for Visit * Radiology Services (Routine) - Closed Specialty Diagnoses / Procedures Referred By Contac t Referred To Contact Echosonography Diagnoses Pulmonary emphysema, unspecified emphysema type (HCC) Procedures ECHO COMPLETE W BUBBLE STUDY Hollis Mccall MD [address] [facility] 2[address] DIV OF PULMONARY/[place] [address] Referral ID Status Reason Start Date Expiration Date Visits Re quested Visits Authorized [id number] Closed 11/20/2021 11/20/2022 1 1 Encounter Details Date Type Department Care Team (Latest Contact Info) Description 12/31/2021 8:52 AM IMMIGRATION CONSULTANT - 12/31/2021 11:59 PM [facility] Hospital Encounter [facility] [address] [place] [address] [place] [address] [place] [address] 2[address] DIV OF PULMONARY/CRITIC AL CARE [place], [place] [phone] Discharge Disposition: Home or Self Care Social [...] COVID-19? No / Unsure 12/31/2021 8:43 AM IMMIGRATION CONSULTANT documented as of this encounter Medications at Time of Discharge Medication Sig Dispensed Refills Start Date End Date albuterol (PROVENTIL;VENTOLI N) (2.5 MG/3ML) 0.083% nebulizer solution Inhale 2.5 (two and one-half) mg by mouth every 4 hours as needed for Shortness of Breath 75 mL 11/03/2021 clopidogrel (PLAVIX) 75 MG tablet Take 1 (one) tablet by mouth once daily 90 tablet 12/08/2021 cromolyn (CROLOM) 4 % ophthalmic solution Instill 1 drop into both eyes 3 times daily 10 mL 4 06/12/2020 EPINEPHrine (EPIPEN) 0.3 MG/0.3ML auto-injector pen epinephrine 0.3 mg/0.3 mL injection, auto-injector ezetimibe (ZETIA) 10 MG tablet Take 1 (one) tablet by mouth once daily 90 tablet 4 12/08/2021 losartan (COZAAR) 100 MG tablet Take 1 [...] tablet 4 12/08/2021 vitamin D, ergocalciferol, (DRISDOL) 34787 UNITS capsule Take 1 (one) capsule by mouth every 7 days 01/29/2019 albuterol HFA (PROAIR HFA) 108 (90 Base) MCG/ACT inhaler Inhale 2 (two) puffs by mouth every 4 hours as needed 8.5 g 11 11/03/2021 01/05/2022 aspirin EC (ECOTRIN) 325 MG tablet 12/15/2015 01/11/2023 budesonide-formote rol (SYMBICORT) 160-4.5 MCG/ACT inhaler Inhale 2 puffs by mouth 2 times daily 01/05/2022 evolocumab (REPATHA SURECLICK) 140 MG/ML auto-injector INJECT 1 PEN UNDER THE SKIN EVERY 14 DAYS 6 mL 4 12/08/2021 05/29/2022 FLUoxetine (PROZAC) 60 MG tabletIndications: Major Depressive Disorder Take 1 (one) tablet by mouth once daily for 90 days Reasons: Major Depressive Disorder 90 tablet 12/31/2021 03/26/2022 HYDROcodone-acetam inophen (NORCO) 10-325 MG tablet Take 1 tablet by mouth 2 times daily 5/325 mg 08/28/2020 03/23/2022 hydrocortisone (ANUSOL-HC) 25 MG suppositoryIndicat ions:Hemorrhoids, unspecified hemorrhoid type Insert 1 (one) suppository into the rectum 2 times daily as needed for Hemorrhoids 24 suppository 1 09/01/2021 03/17/2022 hydrocortisone (HYTONE) 2.5 % cream hydrocortisone 2.5 % topical cream with perineal applicator 03/17/2022 hydrocortisone, rectal, (PROCTO-MED HC) 2.5 % creamIndications:H emorrhoids, unspecified hemorrhoid type Insert into the rectum at bedtime 28 g 09/05/2021 03/17/2022 isosorbide mononitrate CR 24hr (IMDUR) 60 MG tablet Take 1 (one) tablet by mouth once daily 90 tablet 4 12/08/2021 01/11/2023 LORazepam (ATIVAN) 2 MG tabletIndications: Anxiety Take 1 (one) tablet by mouth 2 times daily AND 0.5 (one-half) tablet at bedtime. Do all this for 90 days. Reasons: Feeling Anxious. 75 tablet 2 12/31/2021 01/14/2022 metoprolol succinate XL 24hr (TOPROL XL) 50 MG tablet Take 1 (one) tablet by mouth once daily 90 tablet 3 12/08/2021 01/11/2023 mirtazapine (REMERON) 15 MG tabletIndications: Major Depressive Disorder,Panic Disorder Take 0.5 (one-half) tablet by mouth at bedtime for 90 days Reasons: Major Depressive Disorder, Panic Disorder 45 tablet 12/31/2021 03/26/2022 pantoprazole EC (PROTONIX) 40 MG tabletIndications: Gastroesophageal reflux disease without esophagitis Take 1 (one) tablet by mouth once daily 90 tablet 1 09/01/2021 01/23/2022 polyethylene glycol 3350 (MIRALAX) 17 GM/SCOOP powderIndications: Hemorrhoids, unspecified hemorrhoid type Take 17 (seventeen) g by mouth once daily 225 g 1 09/01/2021 11/22/2023 potassium chloride (KLOR-CON M) 20 MEQ tablet Take 10 mEq by mouth once daily 09/25/2017 03/17/2022 tiotropium (SPIRIVA HANDIHALER) 18 MCG inhalation capsule Inhale 1 (one) capsule by mouth once daily 30 capsule 11 11/03/2021 01/11/2023 documented as of this encounter Plan of Treatment Upcoming Encounters Date Type Department Care Team (Late st Contact Info) Description 01/19/2025 11:30 AM IMMIGRATION CONSULTANT Procedure visit [facility] - Urology [address] [place] [address] [address] [place] [phone] Jose Oliver MD [facility] [place] [phone] documented as of this encounter Goals Goal [...] Procedure Name Priority Date/Time Associated Diagnosis Comments ECHO COMPLETE W BUBBLE STUDY Routine 12/31/2021 9:47 AM IMMIGRATION CONSULTANT Pulmonary emphysema, unspecified emphysema type (HCC) documented in this encounter Visit Diagnoses Diagnosis Pulmonary emphysema, unspecified emphysema type (HCC) documented in this encounter Administered Medications Inactive Administered Medications - up to 3 most recent administrations Medication Order MAR Action Action Date Dose Rate Site 0.9% NaCl injection 10 mL 10 mL, Intracatheter, INTRA-PROCEDURE MULTIPLE, Starting on Wed12/31/21 at 0924, Until 12/31/21 at 1323, For Echo Procedure - Per Protocol Agitate saline before administration. $ Given 12/31/2021 9:46 AM IMMIGRATION CONSULTANT 10 mL $ Given 12/31/2021 9:45 AM IMMIGRATION CONSULTANT 10 mL perflutren lipid microsphere (Definity) injection 0.5 mL 0.5 mL, Intravenous, INTRA-PROCEDURE MULTIPLE, 6 doses, Starting on 12/31/21 at 0924, Until [place] 01/01/22 at 0202, For Echo Procedure - Per Protocol Give slowly Shake well before using. $ Given 12/31/2021 9:46 AM IMMIGRATION CONSULTANT 0.5 mL documented in this encounter Care Teams Campground Manager Relationship Specialty Start Date End Date Neva Holden MD [address] [place] [phone] PCP - General 05/06/20 05/25/23 documented as of this encounter
--- OUTSIDE RECORDS SUMMARY | 2024-11-12 04:43 | XMS_ITS | Encounter Summary ---
Author Organization [facility] Address [address] [facility] [place] [address] Care Team Providers Care Rolled Oats Mill Operator Name Role Phone Neva Holden MD Primary Care Provider [phone] Reason for Visit * Reason Comments Cystoscopy Hx bladder cancer Encounter Details Date Type Department Care Team ([facility] Contact Info) Description 08/14/2022 11:30 AM CDT Procedure visit [facility] [address] [place] [id number] Jose Oliver MD [address] [place] [phone] Malignant neoplasm of urinary bladder, unspecified site (HCC) Social History Tobacco Use Types Packs/Day Years Used Date Smoking Tobacco: Every Day Cigarettes 0.5 40 Smokeless Tobacco: Never Comments:pt said she will qu it in 09/2021 Alcohol Use Standard Drinks/Week Comments No 0 (1 standard drink = 0.6 oz pur e alcohol) PHQ-2 Answer Date Recorded PHQ2 TOTAL SCORE 1 05/27/2022 Sex and Gender Information Value Date Recorded Sex Assigned at Not on file Gender Identity Not on file Sexual Orientation Not on file documented as of this encounter Last Filed Vital Signs Vital Sign Reading Time Taken Comments Blood Pressure 100/69 08/14/2022 11:14 AM CDT Pulse 87 08/14/2022 11:14 AM CDT Temperature - - Respiratory Rate - - Oxygen Saturation 95% 08/14/2022 11:14 AM CDT Inhaled Oxygen Concentration - - Weight - - Height - - Body Mass Index - - documented in this encounter Patient Instructions * Patient Instructions* Alexandra Brandon - 08/14/2022 11:51 AM CDT -To schedule an appointment please call [phone]. -To reach the [place] office please call [phone]. -For any nursing or surgery questions please call [phone]. -FAX: We hope you've enjoyed your visit with us. You will be getting a survey about the performance of our physicians, staff, and office soon. Please take a moment to complete the survey as we are always looking for ways to serve you better. 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 Underwent repeat TURBT with diagnostic left ureteroscopy and removal of left ureteral stent in 03/2022. Intraoperatively patient found to have no new obvious masses/tumors but irregular edematous erythematous tissueencircling left UO. Previous resection site and tissue surrounding left UO both biopsied, path negative. Patient returns to clinic today for in-office cystoscopy. After reviewing the various risks benefits and alternatives, informed consent was obtained. Of note, patient c/o urinary urgency and urge incontinence. States symptoms started after first TURBT in 01/[address] Santa. Did not improve after stent removal in 03/2022 and are still present and bothersome to patient. Path: 03/23/22 - Urinary bladder, transurethral resection of bladder tumor: 1. Negative for malignancy 2. Acute and chronic inflammation, fibrosis, and dystrophic calcification consistent with biopsy site changes 3. Detrusor muscle present, negative for tumor invasion DESCRIPTION OF PROCEDURE: Patients genitalia were prepped and draped. Lidocaine jelly was instilled per urethra for anesthesia. Flexible cytoscope was inserted into urethral meatus and navigated through urethra into bladder. Well coapting sphincter observed. No urethral lesions or strictures noted. Bilateral UO in orthotopic position. Left UO still encircled by edematous erythematous irregular appearing tissue despite stentremoval > 4 months ago. No efflux from either UO was seen. Previous resection site left lateral wall without evidence of tumor recurrence. No new obvious masses or suspicious lesions. Cystoscope was retroflexed and no lesions noted. At this point the cystoscope was withdrawn from the bladder. Patient tolerated procedure well. PLAN: - Start Oxybutynin XL for OAB symptoms (especially urgency) and urge incontinence - Will check cytology - RTC in [address] Oliver present and participated during the case. Kofi Martin MD Urology PGY5 08/14/2022 12:00 PM Associated attestation - Jose Oliver MD - 08/14/2022 4:03 PM CDT I was present for the entire procedure. documented in this encounter Plan of Treatment Upcoming Encounters Date Type Department Care Team (Late st Contact Info) Description 01/19/2025 11:30 AM TERRAZZO JOURNEYMAN Procedure visit [facility] - Urology [address] [place] [address] [address] [place] [address] Jose Oliver MD [facility] [place] [phone] documented as of this encounter Goals Goal [...] Name Priority Date/Time Associated Diagnosis Comments CYTOLOGY NON-NURSING TEACHER PANEL Routine 08/14/2022 11:53 AM CDT Malignant neoplasm of urinary bladder, unspecified site (HCC) URINALYSIS AUTO - POINT OF CARE (AMB) [facility] Routine 08/14/2022 Malignant neoplasm of urinary bladder, unspecified site (HCC) documented in this encounter Results * CYTOLOGY NON-NURSING TEACHER PANEL (08/14/2022 11:53 AM CDT) Clinical Information [facility] Comment:Malignant neoplasm o f urinary bladder Pathologist [facility] Comment: Go Spaulding Jr., M.D. Board Certified in Anatomic Pathology, Clinical Pathology and Cytopathology, Specializing in Urologic Pathology [phone] (electronic signature) Test Performed at: [facility] [address] ??[id number] TERE KO MD Pathology/Cytolo gy URINE SPECIMEN FROM URINARY BLADDER / Unknown 08/14/2022 11:53 AM CDT 08/18/2022 3:35 AM CDT Jose Oliver MD LAB - PATHOLOGY/CY TOLOGY ORDERABLES [facility] [address] [place] [address] * URINALYSIS AUTO - POINT OF CARE (AMB) [facility] (08/14/2022) Glucose UA 15 mmol/l Bilirubin UA POCT neg Ketones UA POCT neg Specific P[place]itt UA 1.025 Blood Urine POCT 10 abel/ul pH UA 6.0 Protein UA 0.3 g/l Urobilinogen UA 3.5 umol/l Nitrite UA neg WBC UA neg Urine URINE / Unknown 08/14/2022 Jose Oliver MD LAB - POINT OF CAR E ORDERABLES documented in this encounter Visit Diagnoses Diagnosis Malignant neoplasm of urinary bladder, unspecified site (HCC)- Primary documented in this encounter Care Teams Rolled Oats Mill Operator Relationship Specialty Start Date End Date Neva Holden MD [address] [place] [phone] PCP - General 05/06/20 05/25/23 documented as of this encounter
--- OUTSIDE RECORDS SUMMARY | 2024-11-12 04:43 | XMS_ITS | Encounter Summary ---
Author Organization [facility] Address [address] [facility] [place] [address] Care Team Providers Care Traffic Warehouse Supervisor Name Role Phone Deisi Andrews MD Primary Care Provider [phone] Encounter Details Date Type Department Care Team (Late st Contact Info) Description 06/02/2023 Orders Only [facility] - Urology [address] [place] [address] [address] [place] [phone] Jose Oliver MD [address] [place] [address] Social History Tobacco Use Types [...] st Contact Info) Description 01/19/2025 11:30 AM SALES TECHNICIAN HOME THEATER Procedure visit [facility] - Urology [address] [place] [address] [address] [place] [phone] Jose Oliver MD [address] [place] [phone] documented as of this encounter Goals Goal [...] Name Priority Date/Time Associated Diagnosis Comments CYTOLOGY NON-COIL SHAPER 06/02/2023 12:0 0 PM CDT documented in this encounter Results * CYTOLOGY NON-COIL SHAPER (06/02/2023 12:00 PM CDT) A Source Bladder wash [facility] A Gross Description [facility] Comment: The specimen is received with multiple patient identifier(s), labeled bladder wash and consists of 20 cc(s) of yellow fluid. One ThinPrep slide prepared and stained with Papanicolaou stain. ??Gross exam(s) performed at: [facility] ??[address] [facility] [phone] ??Hand Endband Cutter: TERE KO MD A Diagnosis [facility] Comment: Atypical cells present of undetermined significance. Red blood cells present. Atypical urothelial cells present. Suggest clinically appropriate follow up. NO COLLECTION DATE RECEIVED. WE HAVE USED THE DATE THE SPECIMEN WAS RECEIVED BY THIS LABORATORY THE COLLECTION DATE. IF THIS IS INCORRECT, PLEASE CONTACT CLIENT SERVICES. PHONE NUMBER: [phone] Test Performed at: [facility] [address] ??[id number] TERE KO MD 05/29/2023 1:4 4 AM CDT Jose Oliver MD LAB - PATHOLOGY/CY TOLOGY ORDERABLES Performing Organization Address City/State/[facility] Co de Phone Number [facility] [address] [place] [address] documented in this encounter Visit Diagnoses Not on filedocumented in this encounter Care Teams Traffic Warehouse Supervisor Relationship Specialty Start Date End Date Deisi Andrews MD [address] [place] [address] DANNIE Rodríguez [phone] PCP - General Family Medicine 05/26/23 10/26/24 documented as of this encounter
--- OUTSIDE RECORDS SUMMARY | 2024-11-12 04:43 | XMS_ITS | Encounter Summary ---
Author Organization [facility] Address [address] [facility] [place] [address] Care Team Providers Care Soaker Meat Name Role Phone Neva Holden MD Primary Care Provider [phone] Encounter Details Date Type Department Care Team (Latest Contact Info) Description 01/11/2023 10:22 AM [facility] - 01/11/2023 11:59 PM [facility] Hospital Encounter [facility] PAT [address] [place] [phone] Jose Oliver MD [address] [facility] [address] [facility] [place] [phone] Urology Discharge Disposition: Home or Self Care Anesthesia Record Procedure Summary Procedure Name Responsible Anesthesiologist Anesthesia Start Time Anesthesia Stop Time Blue light cystoscopy and transurethral resection of bladder tumor Alicja Weaver MD 01/18/23 0845 01/18/23 0956 Events Date Time Event Comment 01/18/2023 0712 0845 An Start 0847 Pt In Room 0852 An Start Data 0852 PT Reassessment 0852 Induction 0900 An LMA 0905 Time Out Anesthesia part icipated in timeout at the time documented in the record by nursing 0909 An Intubation 0909 An LMA Removed Poor exhlatio nal volumes, questionable seat. LMA 4 igel placed by CH, CA2 and noted same low volume and now has some blood out of side port--intubation was determined to be the next best course of action to protect AW. 0911 Anes Ready 0912 Proc Start 0918 Quick Note Steep upsloping of capnograph waveform and presence of wheezing indicative of possible active bronchospasm, anesthetic deepened and propfol administered with slight improvement. 0947 An Emergence 0953 an stop data 0953 Pt out of Room 0953 ANPTO2 0956 An Stop Meds * Agents No agents on file. * Blood No blood administrations on file. Lines, Drains, and Airways Type Details Placement Removal Peripheral IV Date: 01/18/23; Time : 812; Orientation: Left, Posterior; Placed By: coty 01/18/23 0813 by Jacquelin Dash RN 01/18/23 1144 by Rosalinda Casey RN LMA 01/18/23; 899 (snwo lynn via procedure documentation); Flavia Snyder; Standard IV; easy mask; LMA; 4.0; Bilateral breath sounds, Chest Auscultation, CO2 Monitor; 01/18/23; 92901/18/23 09 by Jayy Zheng Anes Asst 01/18/23 0930 by Jayy Zheng Anes Asst ETT Date: 01/18/23; Time : 908; Placed By: Flavia Snyder; Vent: easy mask; Induction: Standard IV; Blade Type: Rico; Blade Size: 2; Laryngoscopy View: Grade 1 (full cords); Tube: Endotracheal Tube; Placement: Oral; Tube Type: Cuffed-inflated; Tube Size(mm): 7 MM; Attempts: 1; Cuff Infated: Air; Verified By: Direct visualization, Bilateral breath sounds, Chest Auscultation, CO2 Monitor, CO2 Detector 01/18/23 0909 by Jayy Zheng Anes Asst 01/18/23 181 by Generic, Auto Release Procedural Site (Incision) 01/18/23; 0932; Perineum; 01/18/23; 181001/18/23 0932 by Denia Doherty RN 01/18/23 181 by Generic, Auto Release Procedural Site (Incision) 01/18/23; 0932; Vagina; 01/18/23; 181001/18/23 0932 by Denia Doherty RN 01/18/23 1811 by [employer], Auto Release documented in this encounter Social [...] Sign Reading Time Taken Comments Blood Pressure 121/68 01/11/2023 10:23 AM BULLET SLUG CASTING 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 Pulse 98 01/11/2023 10:23 AM BULLET SLUG CASTING 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 Temperature 37.1 ??C (98.8 ??F) 01/11/2023 10:[address] Respiratory Rate 18 01/11/2023 10:23 AM BULLET SLUG CASTING 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 Oxygen Saturation 98% 01/11/2023 10:23 AM BULLET SLUG CASTING 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 Inhaled Oxygen Concentration - - Weight 89 kg (196 lb 3.2 oz) 01/11/2023 10:23 AM BULLET SLUG CASTING 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 Height 160 cm (5' 3 ) 01/11/2023 10:23 AM BULLET SLUG CASTING 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 Body Mass Index 34.76 01/11/2023 10:23 AM BULLET SLUG CASTING 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 documented in this encounter Medications at Time of Discharge Medication Sig Dispensed Refills Start Date End Date albuterol (PROVENTIL;VENTOLIN) (2.5 MG/3ML) 0.083% nebulizer solution Inhale 2.5 (two and one-half) mg by mouth every 4 hours as needed for Shortness of Breath 75 mL 11/03/2021 albuterol HFA (PROAIR HFA) 108 (90 Base) MCG/ACT inhalerIndications:Sta ge 2 moderate COPD by GOLD classification ([facility]) Inhale 2 (two) puffs by [...] tablet 4 12/08/2021 vitamin D, ergocalciferol, (DRISDOL) 49847 UNITS capsule Take 1 (one) capsule by [...] ge 2 moderate COPD by GOLD classification ([facility]) INHALE 2 PUFFS BY MOUTH TWICE DAILY 10.2 g 5 12/03/2022 07/07/2023 FLUoxetine (PROzac) 60 MG tablet fluoxetine 60 mg tablet TAKE 1 (ONE) TABLET BY MOUTH ONCE DAILY FOR 90 DAYS 05/27/2023 HYDROcodone-acetaminop hen (Boykin) 5-325 MG tabletIndications:Anastasiya galicia neoplasm of urinary bladder, unspecified site (HCC) Take 1 (one) tablet by mouth every 6 hours as needed pain 6 tablet 01/18/2023 01/18/2023 HYDROcodone-acetaminop hen (Boykin) 5-325 MG tablet Take 1 (one) tablet by mouth every 6 hours as needed pain 01/07/2023 01/18/2023 levoFLOXacin (Levaquin) 750 MG tablet Take 1 [...] 11/22/2023 oxyCODONE-acetaminophe n (Percocet) 5-325 MG tabletIndications:Anastasiya galicia neoplasm of urinary bladder, unspecified site (HCC) Take 1 (one) tablet by mouth every 6 hours as needed for Pain 10 tablet 01/18/2023 10/22/2023 pantoprazole EC (PROTONIX) 40 MG tabletIndications:need follow up visit for further [id number] option 1 Take 1 (one) tablet by mouth once daily Reasons: need follow up visit for further [phone] option 1 90 tablet 3 01/23/2022 06/15/2024 polyethylene glycol 3350 (MIRALAX) 17 GM/SCOOP powderIndications:Hemo rrhoids, unspecified hemorrhoid type Take 17 (seventeen) g by mouth once daily 225 g 1 09/01/2021 11/22/2023 documented as of this encounter Plan of Treatment Upcoming Encounters Date Type Department Care Team (Late st Contact Info) Description 01/19/2025 11:30 AM BULLET SLUG CASTING 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 Procedure visit [facility] Urology [address] [facility] [address] [place] [address] Jose Oliver MD [address] [place] [address] documented as of this encounter Goals Goal [...] on filedocumented in this encounter Care Teams Soaker Meat Relationship Specialty Start Date End Date Neva Holden MD [address] [place] [phone] PCP - General 05/06/20 05/25/23 documented as of this encounter
--- OUTSIDE RECORDS SUMMARY | 2024-11-12 04:43 | XMS_ITS | Encounter Summary ---
Author Organization [facility] Address [address] [facility] [place] [address] Care Team Providers Care Strategy Manager Name Role Phone Neva Holden MD Primary Care Provider [phone] Reason for Visit * Reason Onset Date Comments Pre-op Clearance 01/14/2022 Encounter Details Date Type Department Care Team (Late st Contact Info) Description 01/14/2022 Telephone [facility] [address] [facility] [place] [address] [place] [address] Adrianna Adair, RN Pre-op Clearance Social History Tobacco Use Types Packs/Day Years [...] COVID-19? No / Unsure 12/31/2021 8:43 AM EARLY CHILDHOOD EDUCATOR AIDE documented as of this encounter Miscellaneous Notes * Telephone Encounter - Adrianna Adair RN - 01/15/2022 9:36 AM CST Faxed note from provider, received confirmation. Spoke with Francesca and she states that she received my voicemail, has not received fax from this morning yet. She will reach out to vascular about plavix. Informed her to call with any questions Y CHILDHOOD EDUCATOR AIDE * Telephone Encounter - Adrianna Adair RN - 01/14/2022 3:07 PM CST Left message with Francesca in urology with update about patient from Dr. Quijano. Awaiting return call Y CHILDHOOD EDUCATOR AIDE * Telephone Encounter - Adrianna Adair RN - 01/14/2022 1:51 PM CST Francesca from urology called and left voicemail stating that patient is needing cardiac clearance for upcoming surgery on 01/21 for bladder tumor. Returned call to Francesca and informed her that provider was on service. Inquired if signature required or if provider could okay and nurse could sign clearance for patient. She states that as long as the provider gives the okay, signature is not needed, just needs to be documented. Informed her documentation writer would send message to provider for surgery clearance for patient. Y CHILDHOOD EDUCATOR AIDE documented in this encounter Plan of Treatment Upcoming Encounters Date Type Department Care Team (Late st Contact Info) Description 01/19/2025 11:30 AM EARLY CHILDHOOD EDUCATOR AIDE Procedure visit [facility] - Urology [address] [place] [address] [address] [place] [address] Jose Oliver MD [address] [place] [address] documented as of this encounter Goals Goal [...] on filedocumented in this encounter Care Teams Strategy Manager Relationship Specialty Start Date End Date Neva Holden MD [address] [place] [phone] PCP - General 05/06/20 05/25/23 documented as of this encounter
--- OUTSIDE RECORDS SUMMARY | 2024-11-12 04:43 | XMS_ITS | Encounter Summary ---
Author Organization [facility] Address [address] [facility] [place] [address] Care Team Providers Care Pot Puncher Name Role Phone Neva Holden MD Primary Care Provider [phone] Reason for Visit * Reason Comments Establish Care * Consult, Test & Treat (Routine) - Closed Specialty Diagnoses / Procedures Referred By Contac t Referred To Contact Urology Diagnoses Malignant neoplasm of lateral wall of bladder ([place]) [place] [address] [place] [phone] Referral ID Status Reason Start Date Expiration Date Visits Re quested Visits Authorized [id number] Closed 02/05/2022 02/05/2023 1 1 Encounter Details Date Type Department Care Team ([facility] Contact Info) Description 02/27/2022 9:30 AM CDT Office Visit [facility] [address] [place] [id number] Jose Oliver MD [address] [place] [phone] Malignant neoplasm of urinary bladder, unspecified site (HCC) (Primary Dx) Social History Tobacco Use Types Packs/Day Years Used Date Smoking Tobacco: Every Day Cigarettes 1 40 Smokeless Tobacco: Never Tobacco Cessation:Ready to Q uit: No; Counseling Given: No Comments:pt said she will quit in 09/2021 [...] Sign Reading Time Taken Comments Blood Pressure 154/88 02/27/2022 9:13 AM CDT Pulse 96 02/27/2022 9:13 AM CDT Temperature 36.2 ??C (97.1 ??F) 02/27/2022 9:13 AM CD T Respiratory Rate - - Oxygen Saturation 96% 02/27/2022 9:13 AM CDT Inhaled Oxygen Concentration - - Weight 93.9 kg (207 lb) 02/27/2022 9:13 AM CDT Height 160 cm (5' 3 ) 02/27/2022 9:13 AM CDT Body Mass Index 36.67 02/27/2022 9:13 AM CDT documented in this encounter Progress Notes * Walter Broderick MD - 02/27/2022 10:32 AM CDT [facility] Division of Urologic Surgery Jose Oliver MD Date of Visit: 02/27/2022 Patient Name: Rody Zaidi : 1960 Medical Record: [id number] Contact (home) Age: [age] year old Sex: female Referring Physician: Kkio Santa MD [address] [place] [address] [place] [address] Chief Complaint: Chief Complaint Patient presents with ??? Establish Care History of Present Illness: The patient is a 61 year old female with PMHx of HTN, HLD, DM, Asthma, obesity, PAD s/p femoral stents by Dr. Clark, who is being seen today for new evaluation and treatment of bladder cancer. In beginning of January, she developed increased urinary hesitancy with some left sided flank pain and presented to ED at [facility]. CT CAP was performed, which showed left hydroureter and left lateral wall bladder lesion. 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 However, tissue examination wasre-performed by pathologist seen at [facility], which showed no muscle invasive bladder disease, pT1. Today, she denies having any concerning symptoms. She has baseline LUTS and incontinence, wears 3 pads/day with daytime urgency/frequency. Denies hematuria today, but reports having some after stent placement when restarting Plavix. But no issues since. Sister has bladder cancer, well-known to our service. Surgical history of cholecystectomy, , tubal ligation. Smokes 1ppd for past 30 years, down from 3ppd. Past Medical History; Past Medical History: Diagnosis Date ??? Anxiety ??? Atherosclerosis of coronary artery ??? Chest pain pain 10/23 ??? Chronic obstructive pulmonary disease (COPD) ??? Essential hypertension ??? History of diabetes mellitus ??? Obesity ??? Pure hypercholesterolemia ??? Sleep apnea does not use CPAP ??? Snoring Past Surgical History: Past Surgical History: Procedure Laterality Date ??? Cholecystectomy 2006 ??? HX C SECTION CLASSIC 1989 ??? HX CAROTID ENDARDECTOMY 2014 ??? HX TUBAL LIGATION 1989 ??? PA FOOT/TOES SURGERY PROC UNLISTED ??? Tympanostomy 2013 Current Medications: Current Outpatient Medications Medication Sig Dispense Refill [...] ??? ALPRAZolam (XANAX) 1 MG tablet Take 0.5 (one-half) tablet by mouth 3 times daily for 30 days Anxiety. 45 tablet 0 ??? aspirin EC (ECOTRIN) 325 MG tablet ??? atorvastatin (LIPITOR) 20 MG tablet TAKE 1 TABLET BY MOUTH EVERY DAY AT BEDTIME (Patient not taking: Reported on 02/27/2022) ??? budesonide-formoterol (SYMBICORT) 160-4.5 MCG/ACT inhaler Inhale 2 (two) puffs by mouth 2 timesdaily 10.2 g 5 ??? cefdinir (OMNICEF) 300 MG capsule TAKE 1 CAPSULE BY MOUTH EVERY 12 HOURS FOR 10 DAYS (Patient not taking: Reported on 02/27/2022) ??? cetirizine (ZYRTEC) 10 MG tablet cetirizine 10 mg tablet TAKE 1 TABLET BY MOUTH ONCE DAILY NEEDED ??? clopidogrel (PLAVIX) 75 MG tablet every 24 hours ??? clopidogrel (PLAVIX) 75 MG tablet Take 1 (one) tablet by mouth once daily 90 tablet 0 ??? cromolyn (CROLOM) 4 % ophthalmic solution Instill 1 drop into both eyes 3 times daily 10 mL 4 ??? doxycycline monohydrate 100 MG capsule TAKE 1 CAPSULE BY MOUTH TWICE DAILY FOR 10 DAYS (Patientnot taking: Reported on 02/27/2022) ??? EPINEPHrine (EPIPEN) 0.3 MG/0.3ML auto-injector pen epinephrine 0.3 mg/0.3 mL injection, auto-injector ??? evolocumab (REPATHA SURECLICK) 140 MG/ML auto-injector INJECT 1 PEN UNDER THE SKIN EVERY 14 DAYS 6 mL 4 ??? ezetimibe (ZETIA) 10 MG tablet Take 1 (one) tablet by mouth once daily 90 tablet 4 ??? famotidine (PEPCID) 40 MG tablet Take 40 mg by mouth once daily (Patient not taking: Reported on 02/27/2022) ??? fluconazole (DIFLUCAN) 150 MG tablet TAKE 1 TABLET NOW AND MAY REPEAT IN 7 DAYS (Patient not taking: Reported on 02/27/2022) ??? FLUoxetine (PROZAC) 60 MG tablet Take 1 (one) tablet by mouth once daily for 90 days Reasons: Major Depressive Disorder 90 tablet 0 ??? HYDROcodone-acetaminophen (NORCO) 10-325 MG tablet Take 1 tablet by mouth 2 times daily 5/325 mg ??? hydrocortisone (ANUSOL-HC) 25 MG suppository Insert 1 (one) suppository into the rectum 2 timesdaily as needed for Hemorrhoids (Patient not taking: No sig reported) 24 suppository 1 ??? hydrocortisone (HYTONE) 2.5 % cream hydrocortisone 2.5 % topical cream with perineal applicator ??? hydrocortisone, rectal, (PROCTO-MED HC) 2.5 % cream Insert into the rectum at bedtime 28 g 0 ??? ibuprofen (MOTRIN) 600 MG tablet ??? isosorbide mononitrate CR 24hr (IMDUR) 60 MG tablet Take 1 (one) tablet by mouth once daily 90 tablet 4 ??? losartan (COZAAR) 100 MG tablet Take 1 (one) tablet by mouth once daily 90 tablet 4 ??? metFORMIN (GLUCOPHAGE) 500 MG tablet Take 500 mg by mouth 2 times daily with morning and evening meal (Patient taking differently: Take 500 mg by mouth 2 times daily with morning and evening meal) ??? metoprolol succinate XL 24hr (TOPROL XL) 50 MG tablet Take 1 (one) tablet by mouth once daily 90 tablet 3 ??? mirtazapine (REMERON) 15 MG tablet Take 0.5 (one-half) tablet by mouth at bedtime for 90 days Reasons: Major Depressive Disorder, Panic Disorder 45 tablet 0 ??? zfbpvlcp-fnhfwhaic-axflvgtl (MAXITROL) ophthalmic suspension INSTILL 1 DROP INTO AFFECTED EYE(S) EVERY 3 TO 4 HOURS WHILE AWAKE ??? jvaqhicx-ctgtimyya-it (CORTISPORIN) 3.5-89766-0 otic suspension SHAKE LIQUID AND INSTILL 4 DROPS TO AFFECTED EAR THREE TIMES DAILY ??? nicotine (NICODERM CQ) 14 MG/24HR patch Apply 1 (one) patch to skin once daily 30 patch 0 ??? nicotine (NICODERM CQ) 21 MG/24HR patch APPLY 1 PATCH TOPICALLY ONCE DAILY ??? nicotine (NICODERM CQ) 7 MG/24HR patch Apply 1 (one) patch to skin once daily 30 patch 0 ??? nitroGLYCERIN (NITROSTAT) 0.4 MG tablet Dissolve 1 (one) tablet under the tongue every 5 minutes as needed for Angina 100 tablet 4 ??? ondansetron (ZOFRAN) 8 MG tablet ondansetron HCl 8 mg tablet TAKE 1 TABLET BY MOUTH EVERY 8 HOURS NEEDED ??? oxybutynin CR 24hr (DITROPAN XL) 15 MG tablet TAKE 1 TABLET BY MOUTH EVERY DAY FOR BLADDER SPASM/DISCOMFORT ??? oxyCODONE, immediate release, (ROXICODONE) 5 MG tablet Take 5 mg by mouth every 6 hours as needed pain (Patient not taking: Reported on 02/27/2022) ??? pantoprazole EC (PROTONIX) 40 MG tablet Take 1 (one) tablet by mouth once daily Reasons: need follow up visit for further [id number] option 1 90 tablet 3 ??? polyethylene glycol 3350 (MIRALAX) 17 GM/SCOOP powder Take 17 (seventeen) g by mouth once daily(Patient not taking: No sig reported) 225 g 1 ??? potassium chloride (KLOR-CON M) 20 MEQ tablet Take 10 mEq by mouth once daily (Patient not taking: Reported on 02/27/2022) ??? potassium chloride ER (KLOR-CON) 10 MEQ tablet Take 10 mEq by mouth once daily ??? tiotropium (SPIRIVA HANDIHALER) 18 MCG inhalation capsule Inhale 1 (one) capsule by mouth once daily 30 capsule 11 ??? vitamin D, ergocalciferol, (DRISDOL) 64888 UNITS capsule Take 50,000 Units by mouth every 7 days No current facility-administered medications for this visit. Allergies; Penicillins, Azithromycin, Risperidone, Statins [hmg-coa-r inhibitors], Haloperidol, Codeine, Penicillin g, and Triazolam Family History: Family History Problem Relation Name [...] on file Tobacco Use ??? Smoking status: Current Every Day Smoker Packs/day: 1.00 Years: 40.00 Pack years: 40.00 Types: Cigarettes ??? Smokeless tobacco: Never Used ??? Tobacco comment: pt said she will quit in 09/2021 Vaping Use ??? Vaping Use: Never used Substance and Sexual Activity ??? Alcohol use: No ??? Drug use: Yes Types: Marijuana Comment: daily ??? Sexual activity: Not on file Other Topics Concern ??? 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 Date last employed: 30 years ago Social Determinants of Health Financial Resource Strain: Not on file Food Insecurity: Not on file Transportation Needs: Not on file Physical Activity: Not on file Stress: Not on file Social Connections: Not on file Intimate Partner Violence: Not on file Housing Stability: Not on file Review of Systems: General: Negative Skin: Negative Eyes: Negative Ears/nose/mouth: Negative Lungs:Negative Heart:Negative Gastrointestinal: Negative Genitourinary: Urgency/Frequency, incontinence Musculoskeletal: Negative Nervous system: Negative Reproductive system: Negative Hematologic: Negative Lymphatic: Negative Endocrine: Negative Physical Exam: Vital Signs: BP 154/88 Pulse 96 Temp 97.1 ??F (36.2 ??C) (Temporal) Ht 5' 3 (1.6 m) Wt 207 lb (93.9 kg) SpO2 96% BMI 36.67 kg/m2 Gen: Alert and oriented x3, obese Head: normocephalic Lungs: Non-labored respirations Heart: RRR Abd: soft, nontender, nondistended, surgical scars noted : no CVA tenderness, no suprapubic pain MSK: normal gait and strength Skin: No rashes Laboratory Studies: Lab results smartLinks are not currently available UA: 1+LE, 1+ protein, 3+blood Diagnosis: Rody Zaidi is a 61 year old female who presents with pT1 (possible pT2) bladder cancer causing left sided hydronephrosis s/p left stent placement. Recommendations: - will schedule for repeat TURBT, Left URS, in OR - risks/benefits explained to patient. - advised to decrease smoking. Walter Broderick MD 02/27/2022 10:32 AM Associated attestation - Jose Oliver MD - 02/27/2022 12:41 PM CDT I have verified the documentation of the provider including all history, exam, and medical decision-making details. I have personally performed a physical exam and have personally reviewed the data (including lab and radiology) to support my medical decision-making as outlined in the note. I arrive independently at the same conclusion. In addition I note: Subjective: 61yo female with bladder cancer, diagnosed 01/21/[address] Santa, outside pathology with pT1 vs pT2, buton [facility] re-read confirmed as high grade pT1. Noted to have left ureteral obstruction requiring stentplacement. She has PMH of tobacco use, PVD with stenting and on plavix, cholecystectomy, C/S, BTL. Family history positive for bladder cancer in sister (Rama, patient of mine). Objective: 01/2022 TURBT [facility] read A. Urinary bladder, transurethral resection, ([facility]: [id number]; 01/21/2022): - Invasive urothelial cell carcinoma, high-grade - No definitive detrusor muscle seen B. Urinary bladder, left ureteral orifice transurethral resection, ([facility]: [id number]; 01/21/2022): - Invasive urothelial cell carcinoma, high-grade - Detrusor muscle present, negative for tumor invasion Assessment/Plan: Given high grade pT1 disease with left ureteral involvement, we discussed repeat TURBT and left ureteroscopy. Based on results, consider surveillance vs BCG vs radical cystectomy. 02/27/2022 12:38 PM Jose Oliver MD documented in this encounter Plan of Treatment Upcoming Encounters Date Type Department Care Team (Late st Contact Info) Description 01/19/2025 11:30 AM WOOD PLANER Procedure visit [facility] - Urology [address] [place] [address] [address] [place] [phone] Jose Oliver MD [address] [place] [phone] documented as of this encounter Goals Goal [...] - POINT OF CARE (AMB) [facility] Routine 02/27/2022 9:20 AM CDT Malignant neoplasm of urinary bladder, unspecified site (HCC) documented in this encounter Results * URINALYSIS AUTO - POINT OF CARE (AMB) [facility] (02/27/2022 9:20 AM CDT) Glucose UA 5 mmol/L Bilirubin UA POCT neg Ketones UA POCT neg Specific [place] UA 1.020 Blood Urine POCT 200 abel/uL pH UA 6.0 Protein UA 0.3 g/L Urobilinogen UA 3.5 umol/L Nitrite UA neg WBC UA 70 [place]/uL Urine URINE / Unknown 02/27/2022 9 :20 AM CDT Jose Oliver MD LAB - POINT OF CAR E ORDERABLES documented in this encounter Visit Diagnoses Diagnosis Malignant neoplasm of urinary bladder, unspecified site (HCC)- Primary documented in this encounter Care Teams Pot Puncher Relationship Specialty Start Date End Date Neva Holden MD [address] [place] [phone] PCP - General 05/06/20 05/25/23 documented as of this encounter
--- OUTSIDE RECORDS SUMMARY | 2024-11-12 04:43 | XMS_ITS | Encounter Summary ---
Author Organization [facility] Address [address] [place] [address] Care Team Providers Care Quality Technician Fiberglass Name Role Phone Neva Holden MD Primary Care Provider [phone] Encounter Details Date Type Department Care Team (Latest Contact Info) Description 12/02/2021 Travel Social History Tobacco Use Types Packs/Day [...] COVID-19? No / Unsure 12/02/2021 9:22 AM SERVICE DELIVERY ANALYST documented as of this encounter Plan of Treatment Upcoming Encounters Date Type Department Care Team (Late st Contact Info) Description 01/19/2025 11:30 AM SERVICE DELIVERY ANALYST Procedure visit [facility] - Urology [address] [place] [address] [address] [place] [phone] Jose Oliver MD [address] [place] [phone] documented as of this encounter Goals Goal [...] on filedocumented in this encounter Care Teams Quality Technician Fiberglass Relationship Specialty Start Date End Date Neva Holden MD [address] [place] [phone] PCP - General 05/06/20 05/25/23 documented as of this encounter
--- OUTSIDE RECORDS SUMMARY | 2024-11-12 04:43 | XMS_ITS | Encounter Summary ---
Author Organization [facility] Address [address] [place] [address] Care Team Providers Care Economics Professor Name Role Phone Neva Holden MD Primary Care Provider [phone] Reason for Referral * Medication Prior Authorization - Closed Specialty Diagnoses / Procedures Referred By Contac t Referred To Contact Monica Quijano MD Referral ID Status Reason Start Date Expiration Date Visits Re quested Visits Authorized Closed 1 1 Reason for Visit * Reason Onset Date Comments Follow-up 05/29/2022 Repatha-lipids Encounter Details Date Type Department Care Team ([facility] Contact Info) Description 05/29/2022 Telephone [facility] [address] [facility] [address] [place] [address] Adrianna Adair RN Follow-up (Repatha-lipids) Social History Tobacco Use Types Packs/Day Years [...] Telephone Encounter - Adrianna Adair RN - 06/02/2022 3:59 PM CDT Has appt 06/05 Received Repatha from [employer]. States that she had a lipid panel completed in April. Will bring them to visit on Wednesday. * Telephone Encounter - Adrianna Adair RN - 05/29/2022 10:00 AM CDT Called and spoke with patient, she states that she has not been able to get Repatha. She is wantingit sent to both [facility] and [facility]. She states that she will call the pharmacies to check on status and will return call with any issues. She states that she had lipid panel completed a couple of weeks ago-asked that I call [phone] to get these results. Called number above-medical records, left message requesting labs for patient. documented in this encounter Plan of Treatment Upcoming Encounters Date Type Department Care Team (Late st Contact Info) Description 01/19/2025 11:30 AM EXTERNAL RELATIONS MANAGER Procedure visit [facility] - Urology [address] [place] [address] [address] [place] [address] Jose Oliver MD [facility] [place] [phone] documented as of this encounter Goals Goal [...] on filedocumented in this encounter Care Teams Economics Professor Relationship Specialty Start Date End Date Neva Holden MD [address] [place] [phone] PCP - General 05/06/20 05/25/23 documented as of this encounter
--- OUTSIDE RECORDS SUMMARY | 2024-11-12 04:43 | XMS_ITS | Encounter Summary ---
Author Organization [facility] Address [address] [address] Care Team Providers Care Janitorial Cleaner Name Role Phone Neva Holden MD Primary Care Provider [phone] Encounter Details Date Type Department Care Team (Latest Contact Info) Description 12/02/2021 9:25 AM RAND CEMENTER - 12/02/2021 11:59 PM RAND CEMENTER Hospital Encounter [facility] OP DRAW STATION [address] [place] [address] [phone] Discharge Disposition: Home or Self Care Social [...] COVID-19? No / Unsure 12/02/2021 9:22 AM RAND CEMENTER documented as of this encounter Medications at Time of Discharge Medication Sig Dispensed Refills Start Date End Date albuterol (PROVENTIL;VENTOLI N) (2.5 MG/3ML) 0.083% nebulizer solution Inhale 2.5 (two and one-half) mg by mouth every 4 hours as needed for Shortness of Breath 75 mL 11/03/2021 cromolyn (CROLOM) 4 % ophthalmic solution Instill 1 drop into both eyes 3 times daily 10 mL 4 06/12/2020 EPINEPHrine (EPIPEN) 0.3 MG/0.3ML auto-injector pen epinephrine 0.3 mg/0.3 mL injection, auto-injector metFORMIN (GLUCOPHAGE) 500 MG tablet Take 1 (one) tablet by mouth 2 times daily with morning and evening meal 12/27/2016 vitamin D, ergocalciferol, (DRISDOL) 84468 UNITS capsule Take 1 (one) capsule by mouth every 7 days 01/29/2019 albuterol HFA (PROAIR HFA) 108 (90 Base) MCG/ACT inhaler Inhale 2 (two) puffs by mouth every 4 hours as needed 8.5 g 11 11/03/2021 01/05/2022 ALPRAZolam (XANAX) 1 MG tabletIndications: Anxiety,Panic Disorder Take 1 (one) tablet by mouth 3 times daily for 90 days Reasons: Feeling Anxious, Panic Disorder 90 tablet 2 09/30/2021 2021 aspirin EC (ECOTRIN) 325 MG tablet 12/15/2015 01/11/2023 cetirizine (ZYRTEC) 10 MG tablet cetirizine 10 mg tablet 12/08/2021 clopidogrel (PLAVIX) 75 MG tablet Take 1 tablet by mouth once daily 90 tablet 09/05/2020 12/08/2021 cyclobenzaprine (FLEXERIL) 10 MG tablet TK 1 T PO TID PRN 07/01/2020 12/08/2021 doxycycline monohydrate 100 MG capsule Take 100 mg by mouth 2 times daily 07/02/2021 12/08/2021 evolocumab (REPATHA SURECLICK) 140 MG/ML auto-injector INJECT 1 PEN UNDER THE SKIN EVERY 14 DAYS 6 mL 4 12/03/2021 12/08/2021 ezetimibe (ZETIA) 10 MG tablet Take 10 mg by mouth once daily 08/19/2020 12/08/2021 FLUoxetine (PROZAC) 60 MG tablet TAKE 1 TABLET BY MOUTH EVERY DAY 30 tablet 2 09/09/2021 12/11/2021 fluticasone propionate (FLONASE) 50 MCG/ACT nasal spray fluticasone propionate 50 mcg/actuation nasal spray,suspension 2019 12/08/2021 fluticasone-salmet juliane (ADVAIR/WIXELA) 500-50 MCG/DOSE inhaler Inhale 1 (one) puff by mouth 2 times daily 180 Each 4 11/24/2021 12/08/2021 HYDROcodone-acetam inophen (NORCO) 10-325 MG tablet Take [...] by mouth once daily 90 tablet 4 10/01/2020 12/08/2021 losartan (COZAAR) 100 MG tablet 02/05/2019 12/08/2021 metoprolol succinate XL 24hr (TOPROL XL) 50 MG tablet Take 1 (one) tablet by mouth once daily 90 tablet 3 03/03/2021 12/08/2021 mirtazapine (REMERON) 7.5 MG tablet Take 1 (one) tablet by mouth at bedtime for 90 days 90 tablet 09/23/2021 12/22/2021 nitroGLYCERIN (NITROSTAT) 0.4 MG tablet 11/06/2016 12/08/2021 pantoprazole EC (PROTONIX) 40 MG tabletIndications: Gastroesophageal [...] mEq by mouth once daily 09/25/2017 03/17/2022 predniSONE (DELTASONE) 20 MG tablet prednisone 20 mg tablet TAKE 2 TABLET BY MOUTH EVERY DAY FOR 5 DAYS 12/08/2021 REPATHA SURECLICK 140 MG/ML auto-injector INJECT 1 PEN UNDER THE SKIN EVERY 14 DAYS 2 mL 2 10/30/2021 12/03/2021 tiotropium (SPIRIVA HANDIHALER) 18 MCG inhalation capsule Inhale 1 (one) capsule by mouth once daily 30 capsule 11 11/03/2021 01/11/2023 triamcinolone acetonide (KENALOG) 0.1 % cream triamcinolone acetonide 0.1 % topical cream APPLY TOPICALLY TO THE AFFECTED AREA TWICE DAILY 12/08/2021 documented as of this encounter Plan of Treatment Upcoming Encounters Date Type Department Care Team (Late st Contact Info) Description 01/19/2025 11:30 AM RAND CEMENTER Procedure visit [facility] - Urology [address] [place] [address] [address] [place] [address] Jose Oliver MD [address] OF [place] [phone] documented as of this encounter Goals Goal [...] Procedure Name Priority Date/Time Associated Diagnosis Comments [id number] BLOOD PHENOTYPING PANEL Routine 12/02/2021 10:26 AM RAND CEMENTER Pulmonary emphysema, unspecified emphysema type (HCC) [id number] BLOOD Routine 12/02/2021 10:26 AM RAND CEMENTER Pulmonary emphysema, unspecified emphysema type (HCC) LDL CHOLESTEROL DIRECT Routine 12/02/2021 10:26 AM RAND CEMENTER 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 100 - 129 mg/dL: ??Near Optimal/Above Optimal ? 130 - 159 mg/dL: ??Borderline High ? 160 - 189 mg/dL: ??High ?>190 mg/dL: ??Very High Blood BLOOD SPECIMEN / Unknown Lab Venipuncture / Unknown 12/02/2021 10:26 AM RAND CEMENTER 12/02/2021 11:31 AM RAND CEMENTER Monica Quijano MD LAB - CHEMISTRY ORD IRISH Performing Organization Address City/[facility]/ZIP Co de Phone Number [address] [phone], [facility] [phone] * [id number]-8-[id number] BLOOD (12/02/2021 10:26 AM RAND CEMENTER) Xeuhk-4-Xmfhuv ypsin 164 90 - 200 mg/dL 12/02/2021 12:30 PM RAND CEMENTER [facility] Blood BLOOD SPECIMEN / Unknown Lab Venipuncture / Unknown 12/02/2021 10:26 AM RAND CEMENTER 12/02/2021 11:13 AM RAND CEMENTER Hollis Mccall MD LAB - CHEMISTRY ORDJunie CONTRERAS [address] [place] [address], [facility] [phone] * [id number]-0-YUMZFEHJWFQ BLOOD PHENOTYPING PANEL (12/02/2021 10:26 AM [facility]) [facility] Jkewh-8-Hcpshovnin n Phenotype M2M2 12/05/2021 5:33 PM RAND CEMENTER [facility] Comment: The patient appears to have a normal phenotype. All M alleles (including subtypes M1, M2, and M3) produce normal serum concentrations of ytexr-7-zzmefqpx inhibitor and are not associated with clinical disease. Caution in interpretation is advised if the patient has been transfused within the previous 21 days. Performed By: [employer] [address] [place] [address] Television Production Technician: Starr Boswell MD Xxwgo-6-Xvkzjpjhfe n 151 90 - 200 mg/dL 12/05/2021 5:33 PM [facility] ([facility]) Comment:To convert to umol/L , multiply mg/dL by 0.185 Blood BLOOD SPECIMEN / Unknown Lab Venipuncture / Unknown 12/02/2021 10:26 AM RAND CEMENTER 12/02/2021 11:13 AM [facility] Hollis Mccall MD LAB - CHEMISTRY BASSAM CONTRERAS [facility] Organization Address City/State/ZIP Co de Phone Number [facility]) [address] * (ABNORMAL) LIPID PROFILE (12/02/2021 10:26 AM [facility]) [facility] Cholesterol Total 209(H) <200 mg/dL 12/02/2021 11:59 AM [facility] HDL 38(L) >40 mg/dL 12/02/2021 11:59 AM [facility] Comment: ATP III Classification of HDL Cholesterol: ? <40 mg/dL: ??Considered a major risk factor. ? >60 mg/dL: ??Considered a negative risk factor. ? LDL Calculated 12/02/2021 11:59 AM [facility] Comment:Calculation of LDL v alue was not performed because triglyceride concentrations greater than 400 mg/dL render the calculated value invalid. For this reason, the LDL Direct assay for measurement of LDL Cholesterol has been performed (per laboratory protocol). Triglycerides 544(H) <150 mg/dL 12/02/2021 11:59 AM RAND CEMENTER [facility] Comment: ATP III Classification of Triglycerides: ?<150 mg/dL: ??Normal ? 150 - 199 mg/dL: ??Borderline High ? 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
--- OUTSIDE RECORDS SUMMARY | 2024-11-12 04:43 | XMS_ITS | Encounter Summary ---
Author Organization [facility] Address [address] 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
--- OUTSIDE RECORDS SUMMARY | 2024-11-12 04:43 | XMS_ITS | Encounter Summary ---
Author Organization [facility] Address [address] [place] [address] Care Team Providers Care Pm Technician Name Role Phone Neva Holden MD Primary Care Provider [phone] Reason for Visit * Auth/Cert (Routine) Specialty Diagnoses / Procedures Referred By Contac t Referred To Contact Diagnoses Malignant neoplasm of urinary bladder, unspecified site (HCC) Malignant neoplasm of urinary bladder, unspecified site Procedures TRANSURETHRAL RESECTION BLADDER TUMOR (TURBT) Referral ID Status Reason Start Date Expiration Date Visits Re quested Visits Authorized [id number] 1 1 Encounter Details Date Type Department Care Team (Late st Contact Info) Description 01/18/2023 8:45 AM STARTING GATE DRIVER Anesthesia Event [facility] [address] [place] [id number] Alicja Weaver MD [address] [facility] [place] [phone] Jasmin Moore, TECHNICIAN ASSISTANT-MULTIMEDIA DESIGNER [id number] [place] [address] Anesthesia Record Procedure Summary Procedure Name Responsible [...] Room 0953 [id number] 0956 An Stop Meds Name Total midazolam 2 mg/2mL injection 2 mg fentaNYL 100 mcg/2ml injection 100 mcg propofol 200mg/20mL injection 60 mg dexamethasone 10 mg/ml PF injection 4 mg ondansetron 4mg/2mL injection 4 mg ciprofloxacin (Cipro) 400 mg in 200 mL I VPB 400 mg rocuronium 50 mg/5 mL injection 50 mg succinylcholine (ANECTINE) 20 mg/mL inje ction 160 mg albuterol HFA 108 mcg inhaler 8 puff sugammadex 200 mg/2mL injection 200 mg LR (Lactated ringers) 500 mL * Agents Name Insp. N2O Exp. Sevoflurane Exp. Desflurane Exp. N2O O2 Air Insp. Sevoflurane Insp. Desflurane * Blood No blood administrations on file. Lines, Drains, and Airways Type Details Placement Removal Peripheral IV Date: 01/18/23; Time : 812; Orientation: Left, Posterior; Placed By: coty 01/18/23 0813 by Jacquelin Dash RN 01/18/23 1144 by Rosalinda Casey, RN LMA 01/18/23; 899 (snow lynn via procedure documentation); Flavia Snyder; Standard IV; easy mask; LMA; 4.0; Bilateral breath sounds, Chest Auscultation, CO2 Monitor; 01/18/23; 92901/18/23 09 by Jayy Zheng Anes Asst 01/18/23929 by Jayy Zheng Anes Asst ETT Date: [...] Chest Auscultation, CO2 Monitor, CO2 Detector 01/18/23 09 by Jayy Zheng Anes Asst 01/18/23 181 by Generic, Auto Release Procedural Site (Incision) 01/18/23; 09; Perineum; 01/18/23; 181001/18/23 09 by Denia Doherty RN 01/18/23 181 by Generic, Auto Release Procedural Site (Incision) 01/18/23; 32; Vagina; 01/18/23; 181001/18/23 09 by Denia Doherty RN 01/18/231810 by Generic, Auto Release documented in this [...] Progress Notes * Alicja Weaver MD - 01/18/2023 10:39 AM CST ANESTHESIA POSTOP EVALUATION NOTE Procedure: Blue light cystoscopy and transurethral resection of bladder tumor Rody Zaidi is a 62 year old female Patient Vitals for the past 6 hrs: BP Temp Pulse Resp SpO2 Pain Rating Score #1 Pain Scale/Observation Pulse - (SPO2/Cuff) 01/18/23 0759 -- 97.9 ??F (36.6 ??C) -- -- -- 8 N -- 01/18/23 0815 132/75 -- 75 14 98 % -- -- 77 bpm 01/18/23 0830 143/84 -- 78 31 98 % -- -- 79 bpm 01/18/23 0845 139/78 -- 76 12 97 % -- -- 78 bpm 01/18/23 0955 (!) 191/97 97 ??F (36.1 ??C) 96 19 100 % -- -- -- 01/18/23 1000 (!) 184/104 -- 93 13 98 % -- -- -- 01/18/23 1005 -- -- -- -- 93 % -- -- -- 01/18/23 1010 (!) 185/97 -- -- -- 91 % -- -- -- 01/18/23 1015 (!) 180/99 -- 84 15 91 % -- -- -- 01/18/23 1020 162/91 97 ??F (36.1 ??C) 82 21 97 % 6 N -- 01/18/23 1025 149/88 -- 74 20 96 % -- -- -- 01/18/23 1030 127/71 -- 77 10 96 % -- -- -- Anesthesia Type: general LMA Pre-op Diagnosis Codes: * Malignant neoplasm of urinary bladder, unspecified site (CMS/HCC) [C67.9] Mental Status: awake, alert and oriented Neuro Status: No numbness, tingling or visual disturbances Respiratory Function: natural Cardiac Function: stable Postop Pain: acceptable to the patient Postop Hydration: adequate Postop Nausea: none Assessment: no apparent anesthetic complications, patient tolerated procedure well and no evidence of recall Patient Disposition: Release from Anesthesia Care NOTABLE EVENTS: No notable events documented. TING GATE DRIVER * Alicja Weaver MD - 01/18/2023 7:10 AM CST ANESTHESIA PREOPERATIVE EVALUATION NOTE Procedure: Blue light cystoscopy and transurethral resection of bladder tumor Vitals: No data found. LMP: No LMP recorded. Patient is postmenopausal. OB Status: Postmenopausal PreEval ANESTHESIA PLAN ASA Score: 3 NPO Status: No solids since midnight Anesthesia Plan: general Planned Induction: intravenous Planned Postop Destination: PACU Anesthetic plan was discussed with: patient Anesthetic Plan discussion was: Consented Use of blood products were discussed with: patient Use of blood product discussion was: Consented BMI, Height, Weight Tobacco History Estimated body mass index is 34.76 kg/m?? as calculated from the following: Height as of 01/11/23: 1.6 m (5' 3 ). Weight as of 01/11/23: 89 kg (196 lb 3.2 oz). Social History Tobacco Use Smoking Status Every Day ??? Packs/day: 0.50 ??? Years: 40.00 ??? Pack years: 20.00 ??? Types: Cigarettes Smokeless Tobacco Never Tobacco Comments pt said she will quit in 09/2021 Alcohol History Drug History Social History Substance and Sexual Activity Alcohol Use No Social History Substance and Sexual Activity Drug Use Yes ??? Types: Marijuana Comment: edibles 1 time per week Outpatient Medications: Inpatient Medications: No outpatient medications have been marked as taking for the 01/18/23 encounter (Hospital Encounter). Current Facility-Administered Medications Medication Dose Last Admin ??? hexaminolevulinate 100 mg Allergies: Allergies Allergen Reactions ??? Penicillins Other and Urticaria unknown Reaction: Hives, ??? Azithromycin Unknown ??? Risperidone Other Reported her face getting swollen ??? Statins [Hmg-Coa-R Inhibitors] Other Causes muscle tightness ??? Haloperidol Other unknown ??? Codeine Itching ??? Penicillin G Other ??? Triazolam Unknown Relevant Problems No relevant active problems Problem List: Patient Active Problem List Diagnosis Date Noted ??? CAD in [place] artery 10/24/2020 Priority: Not Prioritized ??? PAD (peripheral artery disease) ([facility]) Priority: Not Prioritized ??? MDD (recurrent major depressive disorder) in remission ([facility]) 08/05/2018 Priority: Not Prioritized ??? GIOVANNY (generalized anxiety disorder) 06/09/2017 ICD-10 update ??? Obesity 01/09/2017 ??? Nocturia 01/09/2017 ??? Personal history of transient ischemic attack (TIA), and cerebral infarction without residual deficits 01/09/2017 reported ??? Occlusion and stenosis of bilateral carotid arteries 01/09/2017 ??? Chronic pain syndrome 01/09/2017 ??? Type 2 diabetes mellitus with diabetic polyneuropathy (CMS/HCC) 01/09/2017 EMG[facility] ??? Insomnia due to medical condition 01/09/2017 ??? Gastro-esophageal reflux disease without esophagitis 01/09/2017 ??? Primary osteoarthritis of one knee 01/09/2017 ??? Other asthma 01/09/2017 ??? Sleep related leg cramps 01/09/2017 ??? Other forms of angina pectoris (CMS/HCC) 01/09/2017 ??? Essential (primary) hypertension 01/09/2017 ??? Hypersomnia due to medical condition 01/09/2017 ??? Chronic obstructive pulmonary disease (CMS/HCC) 01/09/2017 ??? Personal history of traumatic brain injury 01/09/2017 Reports brief LOC. Age 17. ??? Restless legs syndrome 01/01/2017 ??? Obstructive sleep apnea 01/01/2017 ??? Cervicalgia 04/28/2015 ??? Other chronic pain 04/28/2015 Medical History: Past Medical History: Diagnosis Date ??? Anxiety ??? Asthma ??? Atherosclerosis of coronary artery ??? Bladder cancer (CMS/HCC) ??? Chest pain pain 10/23 ??? Chronic obstructive pulmonary disease (COPD) (CMS/HCC) ??? Depression ??? Essential hypertension ??? GERD [...] 2014 ??? HX TUBAL LIGATION 1989 ??? SC FOOT/TOES SURGERY PROC UNLISTED ??? TRANS URETHRAL RESECT BLADDER TUMOR 03/23/2022 TRANSURETHRAL RESECTION BLADDER TUMOR (TURBT) ??? Tympanostomy 2013 ??? URETEROSCOPY Left 03/23/2022 Left; URETEROSCOPY CRATE MAKER Status: No LMP recorded. Patient is postmenopausal. Postmenopausal OB History No obstetric history on file. Covid Vaccine: Lab Results: Recent Labs Component Name 12/04/22 0000 NITRITE NEG PROTEINUA 1+ 0.3g/L No results found for requested labs within last 120 days. No results found for requested labs within last 120 days. TING GATE DRIVER * Prince Kelley, TECHNICIAN ASSISTANT-MULTIMEDIA DESIGNER - 01/11/2023 10:19 AM CST ANESTHESIA PREOPERATIVE EVALUATION NOTE Procedure: Blue light cystoscopy and transurethral resection of bladder tumor Vitals: Patient Vitals for the past 6 hrs: BP Temp Pulse Resp SpO2 01/11/23 1023 121/68 98.8 ??F (37.1 ??C) 98 18 98 % ANESTHESIA PRE-EVALUATION NOTE History of Present Illness: 62 year old female with a PMHx of COPD (albuterol every other day), Obesity (BMI 34.77), Type 2 DM (Hgb A1 c 8 per pt), CATHERINE ( no cpap), CKD, MDD in remission ,TIA ( 2013 no residual), PVD (s/p femoral stents bilateral legs [address] Clark), GERD and Bladder Cancer. She is scheduled for a Blue light cystoscopy and transurethral resection of bladder tumor with Dr. Oliver. Ms. Zaidi was recently hospitalized between 01/04-01/07/2023 at [facility] with Diverticulitis, UTI and Sharp chest pain. She had an Echocardiogram, EKG completed (results requested), she states the doctors at [facility] attributed her cp to Anxiety Allergies: Pcn, Azithromycin, Risperidone, Statins, Haloperidol, Codeine, Triazolam The patient is a current smoker (edibles weekly). Physical Exam: Orientation X3 Airway/Mallampati Score: IV Mouth Opening Distance: 2 fingerwidths (small mouth opening) Neck ROM: full TM Distance: > 3 FB Teeth: edentulous Heart: normal - S1 S2 Lungs: clear to ausculation bilaterally and wheezing Abdomen Exam: obese and soft Physical Exam Additional Comments: Bilateral arm ecchymotic areas Review of Systems: History of anesthetic complications: No Sleep Apnea Risk: Yes, CPAP - non compliant Malignant Hyperthermia: No GERD: Yes, well controlled Poor Exercise Tolerance: No Recent Chest Pain: No Shortness of Breath: Yes (LAKE occasionally) AICD/Pacemaker: No Renal Disease: Yes (CKD) Diagnostic Tests: Echo(s) reviewed: Yes (01/06/2023 LVF normal, EF 65-70%, Grade 1 Diastolic dysfunction, mild MVR and mild TVR). Cardiac Cath(s) reviewed: Yes. Lab(s) reviewed: Yes (01/06/2023 OSH paper copy in media 206 glu). Other Findings: 10/24/2020 CC DIAGNOSTIC INTERPRETATIONS: Borderline angiographic lesion in the Proximal LAD which was non significant by DFR Otherwise non obstructive CAD 01/06/2022 Echocardiogram Summary PAT evaluation start: (INSERT IN SIDE-BAR IMMEDIATELY AFTER DIAGNOSTIC TESTS. (F2 left / right click to select options below. CTRL-Z to undo) - if BP is poorly controlled (eg SBP >180 or DBP >110) then contact Dr. Dubon or AIC This evaluation was based on PAT clinic visit I. Perioperative Cardiac Risk Index Stratification based on 2014 ACC/AHA Guidelines for patients undergoing noncardiac surgery Perioperative risk of a Major Adverse Cardiac Event (MACE) during hospitalization. Add one point (0-6) for each positive RCRI (Revised Cardiac Risk Indicator) 1. Is the surgery high-risk? NO 2. History of ischemic heart disease? YES - current of nitrate therapy She has not used Nitroglycerin tabs recently per patient If yes then paste summary of most recent cath / stress tests under Other Additional Findings/Comments section above: 3. History of CHF? no If yes then paste summary of most recent TTE / SANJAY under Other Additional Findings/Comments sectionabove: New Murmur? no if yes and without recent echocardiogram then may need TTE contact Dr. Dubon or JOCELYNE 4. History of cerebrovascular disease? Prior TIA or stroke yes TIA 2013 no residual If yes then paste summary of most any relevant neurovascular imaging or carotid duplex results under Other Additional Findings/Comments section above: Carotid bruit ? no if yes and symptomatic then may need carotid duplex - contact Dr. Dubon or JOCELYNE 10/22/2020 The right internal carotid artery has 5079% stenosis. The left internal carotid artery has less than 50% stenosis. Significant stenosis of the left external carotid artery. 5. Insulin-dependent Diabetes? NO 6. Preoperative creatinine > 2 mg/dl? no Baseline Cr? 0.80 Total RCRI / MACE score 2 Points >= 6.6% If MACE < 1%, no further testing [...] II. Consults: NO Copy and paste relevant results. Follow up N/A III. CIEDs Does patient have a CIED (cardiovascular implantable electronic device eg: PM, AICD)? no If yes then copy and paste interrogation report here. Timing of interrogation should be within 1 year for PM and Within 6 months for AICD [place] Information needed (load test mechanic, mode, indication for CIED, battery life, magnet function): If Biotronik device AND PM dependent AND surgical site above umbilicus then call local office at [phone] to schedule reprogramming of CIED (into asynchronous mode for PM and or turn off AICD if magnet mode not option) and write plan here. Please also call Dr Dubon or JOCELYNE. IV. Anticoagulants Is patient receiving chronic antiplatelet/ anticoagulant medications? What is periop plan ? YES - plan is to hold Plavix 5 days (patients with mechanical heart valves OR atrial fib on coumadin with a CHADS- VASc > 7 OR recentVTE within 3 months may need bridging) Follow up N/A V. Previous blood transfusion? no If yes AND EBL > 250ml then patient needs a recent T&S. Order T&S if none recently. If this is a phone review then patient needs to come in PRIOR to DOS for a T&S (call Dr Dubon or JOCELYNE) to arrange. Order a 2nd T&S (re-type) for DOS If no previous blood product transfusion AND EBL >250 then order a T&S for DOS only VII. Known CATHERINE or STOP-BANG> 5 yes Snoring, feel Tired, Observed apnea, high blood Pressure, BMI>35, Age > 50, Neck circumference > 18 If pt has STOP-BANG >=5 with undiagnosed CATHERINE and is being admitted then order: IP Consult to Motion Picture Equipment Machinist (comment regarding consult for undiagnosed CATHERINE) - Follow steps 2 and 3 above If pt has STOP-BANG >=5 with undiagnosed CATHERINE and is outpatient and interested in setting up a sleep study then: - send Epic message to HASEEB and renita Dubon The patient was educated about potential implications of CATHERINE on their perioperative course and recommendations for follow-up care and disease management were addressed, including inpatient consult tosleep medicine as above yes VIII. Known or suspected difficult airway no and complete previous airway management section above If yes then: update Epic problem list to include: difficult airway and call Dr. Ling or AIC IX. Frailty screen: No data recorded X. Suboxone (Buprenorphine / Naloxone) therapy? N/A XI. Most recent EKG (summarize, do not copy and paste): . EKG needed within 6 months if: (ASA >=3 OR any RCRI) AND non-low risk procedure Patient stated she had an ECG at [facility], unable to obtain copy. Echocardiogram results obtained XII. Additional testing needed within 3 months prior to DOS (if possible, else on DOS) - CBC w/o diff if ASA >= 3 OR expected blood loss >250 OR previously abnormal - BMP if ASA >= 3 AND non low- risk procedure / previously abnormal - CMP (instead of BMP) for patient with chronic liver disease or previously abnormal -PT/ PTT/ INR if recent use of anticoagulants OR scheduled for major vascular procedures including aortic and carotid stents / aneurysm coiling / TIPS Additional testing needed on DOS : - EPOC blood glucose for patients w/ DM - EPOC whole blood K+ for patient with ESRD or poorly controlled K+ Labs ordered today including PAT and surgeon orders: CBC, BMP, U/A and UCx Labs/ tests ordered or in need of review on DOS: POC glucose Summary: Rody Zaidi is a 62 year old female presenting for Blue light cystoscopy and transurethral resection of bladder tumor. They have an ASA score of 3 and a RCRI / MACE score of 1 Point >= 0.9% Follow up results - have ALL the above ordered labs and vital signs been reviewed? YES - results are grossly WNL for this patient They ARE OPTIMIZED - PAT EVALUATION COMPLETE CRISYT Mo 01/11/2023 10:39 AM for this procedure. Final clearance pending Clamp Carrier Operator evaluation DOS Preoperative plan was not discussed w/ PAT attending (date and name). To be discussed DOS in ACU. PAT evaluation end: ANESTHESIA PLAN ASA Score: 3 (DM, HTN, COPD, CATHERINE, CKD, TIA, PVD, bladder cancer, GERD) BMI, Height, Weight Tobacco History Estimated body mass index is 34.77 kg/m?? as calculated from the following: Height as of 11/23/22: 1.6 m (5' 3 ). Weight as of 11/23/22: 89 kg (196 lb 4.8 oz). Social History Tobacco Use Smoking Status Every Day ??? Packs/day: 0.50 ??? Years: 40.00 ??? Pack years: 20.00 ??? Types: Cigarettes Smokeless Tobacco Never Tobacco Comments pt said she will quit in 09/2021 Alcohol History Drug History Social History Substance and Sexual Activity Alcohol Use No Social History Substance and Sexual Activity Drug Use Yes ??? Types: Marijuana Comment: daily Outpatient Medications: Inpatient Medications: No outpatient medications have been marked as taking for the 01/18/23 encounter (Anesthesia Event) with Jasmin Moore APRN-CNP. No current facility-administered medications for this visit. Allergies: Allergies Allergen Reactions ??? Penicillins Other and Urticaria unknown Reaction: Hives, ??? Azithromycin Unknown ??? Risperidone Other Reported her face getting swollen ??? Statins [Hmg-Coa-R Inhibitors] Other Causes muscle tightness ??? Haloperidol Other unknown ??? Codeine Itching ??? Penicillin G Other ??? Triazolam Unknown Relevant Problems Anesthesia (+) Obstructive sleep apnea Cardiovascular (+) CAD in [place] artery (+) Essential (primary) hypertension (+) Other forms of angina pectoris ([facility]) (+) PAD (peripheral artery disease) ([facility]) Neuro/Psych (+) Personal history of transient ischemic attack (TIA), and cerebral infarction without residual deficits (+) Personal history of traumatic brain injury Pulmonary (+) Chronic obstructive pulmonary disease ([facility]) (+) Obstructive sleep apnea (+) Other asthma GI (+) Gastro-esophageal reflux disease without esophagitis Endocrine (+) Type 2 diabetes mellitus with diabetic polyneuropathy ([facility]) Problem List: Patient Active Problem List Diagnosis Date Noted ??? CAD in [place] artery 10/24/2020 Priority: Not Prioritized ??? PAD (peripheral artery disease) ([facility]) Priority: Not Prioritized ??? MDD (recurrent major depressive disorder) in remission ([facility]) 08/05/2018 Priority: Not Prioritized ??? GIOVANNY (generalized anxiety disorder) 06/09/2017 ICD-10 update ??? Obesity 01/09/2017 ??? Nocturia 01/09/2017 ??? Personal history of transient ischemic attack (TIA), and cerebral infarction without residual deficits 01/09/2017 reported ??? Occlusion and stenosis of bilateral carotid arteries 01/09/2017 ??? Chronic pain syndrome 01/09/2017 ??? Type 2 diabetes mellitus with diabetic polyneuropathy (CMS/HCC) 01/09/2017 [facility] ??? Insomnia due to medical condition 01/09/2017 ??? Gastro-esophageal reflux disease without esophagitis 01/09/2017 ??? Primary osteoarthritis of one knee 01/09/2017 ??? Other asthma 01/09/2017 ??? Sleep related leg cramps 01/09/2017 ??? Other forms of angina pectoris (CMS/HCC) 01/09/2017 ??? Essential (primary) hypertension 01/09/2017 ??? Hypersomnia due to medical condition 01/09/2017 ??? Chronic obstructive pulmonary disease (CMS/HCC) 01/09/2017 ??? Personal history of traumatic brain injury 01/09/2017 Reports brief LOC. Age 17. ??? Restless legs syndrome 01/01/2017 ??? Obstructive sleep apnea 01/01/2017 ??? Cervicalgia 04/28/2015 ??? Other chronic pain 04/28/2015 Medical History: Past Medical History: Diagnosis Date ??? Anxiety ??? Asthma ??? Atherosclerosis of coronary artery ??? Bladder cancer (CMS/HCC) ??? Chest pain pain 10/23 ??? Chronic obstructive pulmonary disease (COPD) (CMS/HCC) ??? Depression ??? Essential hypertension ??? GERD [...] 2014 ??? HX TUBAL LIGATION 1989 ??? SC FOOT/TOES SURGERY PROC UNLISTED ??? TRANS URETHRAL RESECT BLADDER TUMOR 03/23/2022 TRANSURETHRAL RESECTION BLADDER TUMOR (TURBT) ??? Tympanostomy 2013 ??? URETEROSCOPY Left 03/23/2022 Left; URETEROSCOPY Covid Vaccine: Lab Results: 01/07/2023 Recent Labs Component Name 12/04/22 0000 NITRITE NEG PROTEINUA 1+ 0.3g/L No results found for requested labs within last 120 days. No results found for requested labs within last 120 days. TING GATE DRIVER documented in this encounter Procedure Notes * Jayy Zheng Anes Asst - 01/18/2023 9:30 AM CSTAssociated Order(s): ETT Placement Endotracheal Tube Placement: Patient Location: OR. Intubation Event Date/Time: 01/18/2023 9:09 AM Procedure: intubation ([id number]). Procedure Section: Sedation: under general anesthesia. Indications for Airway Management: anesthesia Induction: standard IV Patient Position: sniffing Mask Ventilation: easy. Blade Type: Rico Blade Size: 2 Laryngoscopy View: grade 1 (full cords) Tube: endotracheal tube Placement: oral Tube type: cuff - inflated Tube Size (MM): 7 Cuff Inflated With: air Number of Attempts: 1. Placement Verified By: direct visualization, chest auscultation, CO2 detector, CO2 monitor and bilateral breath sounds CXR Findings: ETT in proper place. Tube secured with: adhesive tape. Dentition unchanged? Yes Difficult Airway? No. Procedure Start Time: 01/18/2023 9:09 AM. Staff Section Anesthesia Provider: Jayy Zheng Anes Asst, Performed the procedure Provider #1: Jana Wheatley DO. Provider #2: Alicja Weaver MD. Additional Comments: Atraumatic intubation no change in dentition or soft tissue of aw after dl. Blood noted in oropharynx but not peritracheal.. TING GATE DRIVER * Jayy Zheng Anes Asst - 01/18/2023 9:28 AM CSTAssociated Order(s): LMA Placement LMA Placement Procedure/LDA Note: Patient Location: OR. LMA Insertion Date/Time: 01/18/2023 9:00 AM Procedure: LMA. Induction: standard IV Mask Ventilation: easy Type: LMA Size: 4 Number of Attempts: 1. Placement verified by: bilateral breath sounds, chest auscultation and CO2 monitor Dentition unchanged? Yes Procedure Start Time: 01/18/2023 9:00 AM. Staff Section Anesthesia Provider: Jayy Zheng Anes Asst, Performed the procedure Provider #1: Alicja Weaver MD. Additional Comments: LMA placed atraumatically. No change in dentition or soft tissue after placement. Min cuff to seal.. TING GATE DRIVER documented in this encounter Miscellaneous Notes * Anesthesia Transfer of Care - Martir Babb MD - 01/18/2023 9:58 AM STARTING GATE DRIVER ANESTHESIA TRANSFER OF CARE NOTE Today's Date: 01/18/2023 Date of : 1960 Patient: Rody Zaidi Procedure(s): Blue light cystoscopy and transurethral resection of bladder tumor Surgeon(s): Primary: Jose Oliver MD Resident - Assisting: Kenan Argueta MD Preop Diagnosis: Pre-op Diagnois: * Malignant neoplasm of urinary bladder, unspecified site (CMS/HCC) [C67.9] Pre-op Meds (From admission, onward) Start Stop Status Route Frequency Ordered 01/18/23 0800 0.9% NaCl infusion -- Dispensed IV PRE-OP CONTINUOUS 01/18/23 0755 01/18/23 075 0.9% NaCl injection 1-10 mL See Hyperspace for full Linked Orders Report. -- Dispensed IK PRN 01/18/23 0755 01/18/23 08 0.9% NaCl injection 3 mL See Hyperspace for full Linked Orders Report. -- Dispensed IK EVERY 8 HOURS 01/18/23 0755 01/18/23 08 ciprofloxacin (Cipro) 400 mg in 200 mL IVPB 01/18 09 Completed IV INTRA-OP ONCE 03/06/75401/18/23 0645 hexaminolevulinate (Cysview) intravesical instillation 100 mg 01/18 810 Completed INT ONCE 01/18/23 0633 01/18/23 08 lactated ringers infusion -- Dispensed IV CONTINUOUS 01/18/23 07501/18/23 075 lidocaine PF (Xylocaine MPF) 1 % injection 0.2 mL -- Verified ID ONCE PRN 01/18/23754 Post-op Diagnosis: * Malignant neoplasm of urinary bladder, unspecified site (CMS/HCC) [C67.9] . Allergies Allergen Reactions ??? Penicillins Other and Urticaria unknown Reaction: Hives, ??? Azithromycin Unknown ??? Risperidone Other Reported her face getting swollen ??? Statins [Hmg-Coa-R Inhibitors] Other Causes muscle tightness ??? Haloperidol Other unknown ??? Codeine Itching ??? Penicillin G Other ??? Triazolam Unknown Vitals: Patient Vitals for the past 3 hrs: BP Temp Pulse Resp SpO2 Pain Rating Score #1 01/18/23 0845 139/78 -- 76 12 97 % -- 01/18/23 0830 143/84 -- 78 31 98 % -- 01/18/23 0815 132/75 -- 75 14 98 % -- 01/18/23 0759 -- 97.9 ??F (36.6 ??C) -- -- -- 8 Lines, Drains, and Airways Type Details Placement Removal Peripheral IV Date: 01/18/23; Time: 812; Orientation: Left, Posterior; Location: Wrist; Placed By:coty; Gauge: 20 Gauge 01/18/23812 by Jacquelin Guillen, RN LMA 01/18/23; 899 (created via procedure documentation); Flavia Snyder; Standard IV; easy mask; LMA; 4.0; Bilateral breath sounds, Chest Auscultation, CO2 Monitor; 01/18/23; 92901/18/23 09 by Jayy Zheng Anes Asst 01/18/23929 by Jayy Zheng Anes Asst ETT Date: 01/18/23; Time: 09; Placed By: Jayy Jamar Ho, Anes Asst; Vent: easy mask; Induction: Standard IV; Blade Type: Rico; Blade Size: 2; Laryngoscopy View: Grade 1 (full cords); Tube: Endotracheal Tube; Placement: Oral; Tube Type: Cuffed-inflated; Tube Size(mm): 7 MM; Attempts: 1; Cuff I nfated: Air; Verified By: Direct visualization, Bilateral breath sounds, Chest Auscultation, CO2 Monitor, CO2 Detector 01/18/23 0909 by Jayy Zheng Anes Asstodd Intraprocedure I/O Totals Intake LR (Lactated ringers) [...] understanding of report from the receiving PACUteam. Martir Babb MD TING GATE DRIVER documented in this encounter Plan of Treatment Upcoming Encounters Date Type Department Care Team (Late st Contact Info) Description 01/19/2025 11:30 AM STARTING GATE DRIVER Procedure visit [facility] - Urology [address] [place] [address] [address] [place] [address] Jose Oliver MD [facility] [place] [phone] documented as of this encounter Goals Goal [...] Procedure Name Priority Date/Time Associated Diagnosis Comments ENDOTRACHEAL TUBE NOTE Routine 01/18/2023 9:30 AM STARTING GATE DRIVER LARYNGEAL MASK AIRWAY Routine 01/18/2023 9:28 AM STARTING GATE DRIVER documented in this encounter Results * ETT LINE PERFORMABLE (01/18/2023 9:30 AM STARTING GATE DRIVER) Narrative Jayy Zheng Anes Asst - 01/18/2023 9:30 AM STARTING GATE DRIVER Jayy Zheng Anes Asst ? 01/18/2023 ??9:31 AM Endotracheal Tube Placement: ? Patient Location: OR. Intubation Event Date/Time: ??01/18/2023 9:09 AM Procedure: intubation ([id number]). Procedure Section: ?? Sedation: under general anesthesia. [...] * LARYNGEAL MASK AIRWAY (01/18/2023 9:28 AM STARTING GATE DRIVER) Narrative Jayy Zheng Anes Asst - 01/18/2023 9:28 AM STARTING GATE DRIVER Jayy Zheng Anes Asst ? 01/18/2023 ??9:39 [...] seal.. Alicja Weaver MD GENERAL ANESTHESIA ORDERABLES documented in this encounter Visit Diagnoses Not on filedocumented in this encounter Administered Medications Inactive Administered Medications - up to 3 most recent administrations Medication Order MAR Action Action Date Dose Rate Site albuterol HFA (Proventil; Ventolin; Proair) 108 (90 Base) MCG/ACT inhaler Inhalation, PRN, Starting on Wed01/18/23 at 0910, Until Wed01/18/23 at 0956, Anesthesia Intra-op $ Given 01/18/2023 9:10 AM STARTING GATE DRIVER 8 puffs ciprofloxacin (Cipro) 400 mg in 200 mL IVPB 400 mg, at 200 mL/hr, Intravenous, INTRA-OP ONCE, 1 dose, On Wed01/18/23 at 0800, Indication for anti-infective therapy: Surgical prophylaxis, Pre-op $ Given 01/18/2023 9:00 AM STARTING GATE DRIVER 400 mg dexAMETHasone Sod Phosphate PF injection Intravenous, PRN, Starting on Wed01/18/23 at 0932, Until Wed01/18/23 at 0956, Anesthesia Intra-op $ Given 01/18/2023 9:32 AM STARTING GATE DRIVER 4 mg fentaNYL (PF) (Sublimaze) injection Intravenous, PRN, Starting on Wed01/18/23 at 0852, Until Wed01/18/23 at 0956, Anesthesia Intra-op $ Given 01/18/2023 8:52 AM STARTING GATE DRIVER 100 mcg lactated ringers infusion Intravenous, CONTINUOUS PRN, Starting on Wed01/18/23 at 0845, Until Wed01/18/23 at 0956, Anesthesia Intra-op $ New Bag/Syringe 01/18/2023 8:45 AM STARTING GATE DRIVER midazolam (Versed) injection Intravenous, PRN, Starting on Wed01/18/23 at 0845, Until Wed01/18/23 at 0956, Anesthesia Intra-op $ Given 01/18/2023 8:45 AM STARTING GATE DRIVER 2 mg ondansetron (Zofran) injection Intravenous, PRN, Starting on Wed01/18/23 at 0945, Until Wed01/18/23 at 0956, Anesthesia Intra-op $ Given 01/18/2023 9:45 AM STARTING GATE DRIVER 4 mg propofol (Diprivan) injection Intravenous, PRN, Starting on Wed01/18/23 at 0918, Until Wed01/18/23 at 0956, Anesthesia Intra-op $ Given 01/18/2023 9:26 AM STARTING GATE DRIVER 30 mg $ Given 01/18/2023 9:18 AM STARTING GATE DRIVER 30 mg rocuronium (Zemuron) injection Intravenous, PRN, Starting on Wed01/18/23 at 0911, Until Wed01/18/23 at 0956, Anesthesia Intra-op $ Given 01/18/2023 9:11 AM STARTING GATE DRIVER 50 mg succinylcholine (Anectine) injection Intravenous, PRN, Starting on Wed01/18/23 at 0907, Until Wed01/18/23 at 0956, Anesthesia Intra-op $ Given 01/18/2023 9:07 AM STARTING GATE DRIVER 160 mg sugammadex (Bridion) injection Intravenous, PRN, Starting on Wed01/18/23 at 0945, Until Wed01/18/23 at 0956, Anesthesia Intra-op $ Given 01/18/2023 9:45 AM STARTING GATE DRIVER 200 mg documented in this encounter Care Teams Pm Technician Relationship Specialty Start Date End Date Neva Holden MD [address] [place] [phone] PCP - General 05/06/20 05/25/23 documented as of this encounter
--- OUTSIDE RECORDS SUMMARY | 2024-11-12 04:43 | XMS_ITS | Encounter Summary ---
Author Organization [facility] Address [address] [facility] [place] [address] Care Team Providers Care Telephone Switchboard Operator Name Role Phone Deisi Andrews MD Primary Care Provider [phone] Encounter Details Date Type Department Care Team (Late st Contact Info) Description 11/01/2023 Orders Only [facility] - [facility]rology [address] [facility], [place] [phone] Monica Magallon LPN Malignant neoplasm of urinary bladder, unspecified site [...] st Contact Info) Description 01/19/2025 11:30 AM DIRECTOR SEMICONDUCTOR Procedure visit [facility] - Urology [address] [place] [address] [address] [place] [address] Jose Oliver MD [address] [place] [address] documented as of this encounter Goals Goal [...] bladder Urinary frequency documented in this encounter Care Teams Telephone Switchboard Operator Relationship Specialty Start Date End Date Deisi Andrews MD [address] [place] [address] [place] [phone] PCP - General Family Medicine 05/26/23 10/26/24 documented as of this encounter
--- OUTSIDE RECORDS SUMMARY | 2024-11-12 04:43 | XMS_ITS | Encounter Summary ---
Author Organization [facility] Address [address] [facility] [place] [address] Care Team Providers Care Combatant Diver Officer Name Role Phone Neva Holden MD Primary Care Provider [phone] Encounter Details Date Type Department Care Team (Latest Contact Info) Description 01/11/2023 Travel Social History Tobacco Use Types Packs/Day [...] st Contact Info) Description 01/19/2025 11:30 AM MODEL BUILDER Procedure visit [facility] - Urology [address] [place] [address] [address] [place] [phone] Jose Oliver MD [address] [place] [phone] documented as of this encounter Goals Goal [...] on filedocumented in this encounter Care Teams Combatant Diver Officer Relationship Specialty Start Date End Date Neva Holden MD [address] [place] [phone] PCP - General 05/06/20 05/25/23 documented as of this encounter
--- OUTSIDE RECORDS SUMMARY | 2024-11-12 04:43 | XMS_ITS | Encounter Summary ---
Author Organization [facility] Address [address] [place] [address] Care Team Providers Care Plodder Operator Name Role Phone Neva Holden MD Primary Care Provider [phone] Reason for Visit * Reason Onset Date Comments Surgery Scheduling 12/18/2022 Encounter Details Date Type Department Care Team (Late st Contact Info) Description 12/18/2022 Telephone [facility] [address] [place] [address] Jose Oliver MD [address] [place] [phone] Surgery Scheduling Social History Tobacco Use Types [...] * Telephone Encounter - Virgen Piña - 12/18/2022 9:34 AM CST Attempted to reach the patient again. She called left voicemail to return call as I have. Left voicemail to please call me back Virgen Piña 12/18/2022 9:36 AM SCOPY TECH documented in this encounter Plan of Treatment Upcoming Encounters Date Type Department Care Team (Late st Contact Info) Description 01/19/2025 11:30 AM ENDOSCOPY TECH Procedure visit [facility] [address] [facility] [address] [place] [address] Jose Oliver MD [address] [place] [address] documented as of this encounter Goals Goal [...] on filedocumented in this encounter Care Teams Plodder Operator Relationship Specialty Start Date End Date Neva Holden MD [address] [place] [phone] PCP - General 05/06/20 05/25/23 documented as of this encounter
--- OUTSIDE RECORDS SUMMARY | 2024-11-12 04:43 | XMS_ITS | Encounter Summary ---
Author Organization [facility] Address [address] [facility] [place] [address] Care Team Providers Care Custom Van Converter Name Role Phone Neva Holden MD Primary Care Provider Reason for Visit * Reason Onset Date Comments Reschedule Appointment 03/15/2023 Called rina scruggs to informed her that her previous appt was scheduled too early and r/s for 04/21/2023 at 2:30pm. Appt time was changed to 1 pm. Encounter Details Date Type Department Care Team (Late st Contact Info) Description 03/15/2023 Telephone [facility] [address] [place] [address] [address] [place] [phone] Jose Oliver MD [address] [place] [phone] Reschedule Appointment (Called patient to informed her that her previous appt was scheduled too early and r/s for 04/21/2023 at 2:30pm. Appt time was changed to 1 pm.) Social History Tobacco Use Types Packs/Day Years [...] encounter Miscellaneous Notes * Telephone Encounter - Donna Arzate LPN - 03/15/2023 1:41 PM CDT Called patient to informed her that her previous appt was scheduled too early and r/s for 04/21/2023 at 2:30pm. Appt time was changed to 1 pm. documented in this encounter Plan of Treatment Upcoming Encounters Date Type Department Care Team (Late st Contact Info) Description 01/19/2025 11:30 AM BOTTLE AND GLASS INSPECTOR Procedure visit [facility] - Urology [address] [place] [address] [address] [place] [address] Jose Oliver MD [address] [place] [address] documented as of this encounter Goals Goal [...] on filedocumented in this encounter Care Teams Custom Van Converter Relationship Specialty Start Date End Date Neva Holden MD [address] [place] [phone] PCP - General 05/06/20 05/25/23 documented as of this encounter
--- OUTSIDE RECORDS SUMMARY | 2024-11-12 04:43 | XMS_ITS | Encounter Summary ---
Author Organization [facility] Address [address] [facility] [place] [address] Care Team Providers Care Butter Liquefier Name Role Phone Deisi Andrews MD Primary Care Provider [phone] Encounter Details Date Type Department Care Team (Late st Contact Info) Description 11/01/2023 Orders Only [facility] [address] [facility], [place] [phone] Monica Magallon LPN Social History Tobacco Use Types Packs/Day Years [...] st Contact Info) Description 01/19/2025 11:30 AM BUSINESS INFORMATION MANAGER Procedure visit [facility] - Urology [address] [facility] [address] [place] [address] Jose Oliver MD [address] [place] [phone] documented as of this encounter Goals Goal [...] on filedocumented in this encounter Care Teams Butter Liquefier Relationship Specialty Start Date End Date Deisi Andrews MD [address] [place] [address] DANNIE Rodríguez [phone] PCP - General Family Medicine 05/26/23 10/26/24 documented as of this encounter
--- OUTSIDE RECORDS SUMMARY | 2024-11-12 04:43 | XMS_ITS | Encounter Summary ---
Author Organization [facility] Address [address] [facility] [place] [address] Care Team Providers Care Roadside Mechanic Name Role Phone Deisi Andrews MD Primary Care Provider [phone] Reason for Visit * Reason Onset Date Comments Results 07/05/2023 Encounter Details Date Type Department Care Team (Late st Contact Info) Description 07/05/2023 Telephone [facility] [facility] [place] [address] Tiffany Dunlap RN Results Social History Tobacco Use Types Packs/Day [...] encounter Miscellaneous Notes * Telephone Encounter - Tiffany Dunlap RN - 07/06/2023 1:05 PM CDT Left message with results. * Telephone Encounter - Tiffany Dunlap RN - 07/05/2023 3:19 PM CDT Patient called for pathology/cytology results. documented in this encounter Plan of Treatment Upcoming Encounters Date Type Department Care Team (Late st Contact Info) Description 01/19/2025 11:30 AM COFFEE FARMER Procedure visit [facility] - Urology [address] [place] [address] [address] [place] [address] Jose Oliver MD [facility] [place] [phone] documented as of this encounter Goals Goal [...] on filedocumented in this encounter Care Teams Roadside Mechanic Relationship Specialty Start Date End Date Deisi Andrews MD [address] [place] [phone] PCP - General Family Medicine 05/26/23 10/26/24 documented as of this encounter
--- OUTSIDE RECORDS SUMMARY | 2024-11-12 04:43 | XMS_ITS | Encounter Summary ---
Author Organization [facility] Address [address] [facility] [place] [address] Care Team Providers Care Derrick Car Operator Name Role Phone Neva Holden MD Primary Care Provider [phone] Reason for Visit * Reason Onset Date Comments MEDICATION REFILL 12/08/2021 MEDICATION REFILL 12/15/2021 MEDICATION REFILL 01/01/2022 Encounter Details Date Type Department Care Team (Late st Contact Info) Description 12/08/2021 Refill [facility] [address] [facility] [address] [place] [address] Monica Quijano MD MEDICATION REFILL; MEDICATION REFILL; MEDICATION REFILL Social History Tobacco Use Types [...] COVID-19? No / Unsure 12/31/2021 8:43 AM TRAINING ANALYST documented as of this encounter Miscellaneous Notes * Telephone Encounter - Adrianna Adair RN - 01/01/2022 11:14 AM CST Recevied fax stating Repatha approved from 12/26/21-12/26/22 NING ANALYST * Telephone Encounter - Adrianna Adair RN - 12/15/2021 10:47 AM CST Received fax stating that [facility] pharmacy does not carry Repatha. Patient states that she will call insurance company and return call with pharmacy in which to send prescription. NING ANALYST * Telephone Encounter - Adrianna Adair RN - 12/08/2021 10:12 AM CST Patient seen in clinic today. Needs Repatha sent to [facility] Patient was given samples and discount card. Prescriptions -Member Services Needs refill on: Losartan Metoprolol Clopidogrel Zetia Isosorbide Nitroglycerin Prefers prescriptions be sent to [facility] Sent Repatha to [facility] pharmacy, will wait to hear from them if PA is needed NING ANALYST documented in this encounter Plan of Treatment Upcoming Encounters Date Type Department Care Team (Late st Contact Info) Description 01/19/2025 11:30 AM TRAINING ANALYST Procedure visit [facility] - Urology [address] [place] [address] [address] [place] [address] Jose Oliver MD [address] [place] [address] documented as of this encounter Goals Goal [...] on filedocumented in this encounter Care Teams Derrick Car Operator Relationship Specialty Start Date End Date Neva Holden MD [address] [place] [phone] PCP - General 05/06/20 05/25/23 documented as of this encounter
--- OUTSIDE RECORDS SUMMARY | 2024-11-12 04:43 | XMS_ITS | Encounter Summary ---
Author Organization [facility] Address [address] [place] [address] Care Team Providers Care Hinging Machine Operator Name Role Phone Neva Holden MD Primary Care Provider [phone] Reason for Visit * Auth/Cert Specialty Diagnoses / Procedures Referred By Nacho brooks Referred To Contact Diagnoses Diagnosis unknown Diagnosis unknown [R69] Procedures TRANSURETHRAL RESECTION BLADDER TUMOR (TURBT) URETEROSCOPY (FLEXIBLE OR RIGID) Referral ID Status Reason Start Date Expiration Date Visits Re quested Visits Authorized [id number] 1 1 Encounter Details Date Type Department Care Team (Late st Contact Info) Description 03/23/2022 7:34 AM CDT Anesthesia Event [facility] PER[facility] [address] [place] [address] Mary Hughes MD [address] [place] [id number] Wilfred Delgado, ROADWAY TECHNICIAN-BALANCE RECESSER [address] [place] [address] Anesthesia Record Procedure Summary Procedure Name Responsible Anesthesiologist Anesthesia Start Time Anesthesia Stop Time TRANSURETHRAL RESECTION BLADDER TUMOR (TURBT) (Bladder) Mary Hughes MD 03/23/22 0734 03/23/22 0833 Events Date Time Event Comment 03/23/2022 0734 An Start 0734 An Start Data 0737 PT Reassessment 0737 Induction 0740 An Intubation 0757 Timeout Anesthesia part icipated in timeout at the time documented in the record by nursing. 0823 Extubation 0825 an stop data 0825 Electnc Sig This record is electronically signed by the providers listed under staff. 0826 ANPTO2 0833 An Stop Meds Name Total midazolam 2 mg/2mL injection 4 mg fentaNYL 250 mcg/5mL injection 150 mcg lidocaine 2% injection (20 mg/ml) 100 mg propofol 200mg/20mL injection 200 mg succinylcholine (ANECTINE) 100 mg/5 mL i njection 100 mg rocuronium 50mg/5mL injection 40 mg dexamethasone 4 mg/ml injection 8 mg ondansetron 4 mg/2mL injection 8 mg sugammadex 200 mg/2 mL injection 200 mg ciprofloxacin (Cipro) 400 mg in 200 mL I VPB 400 mg esmolol 100 mg/10ml injection 60 mg HYDROmorphone 2 mg/ml injection 0.5 mg albuterol HFA inhaler 8 puff lactated ringers infusion 600 mL * Agents Name Insp. N2O Exp. Sevoflurane Exp. Desflurane Exp. N2O O2 Air Insp. Sevoflurane Insp. Desflurane N2O * Blood No blood administrations on file. Lines, Drains, and Airways Type Details Placement Removal Peripheral IV Date: 03/23/22; Time : 0612; Orientation: Left; Placed By: Ebony Rod RN; Tolerance: Well 03/23/22 0612 by Dorcas Sultana RN 03/23/22 1040 by Nicole Frey, ADONAY ETT Date: 03/23/22; Time : 0740; Placed By: LOW Samuels; Vent: easy with oral airway mask; Induction: Standard IV; Blade Type: Uyen; Blade Size: 3; Laryngoscopy View: Grade 1 (full cords); Intubation Adjuncts: Stylet; Tube: Endotracheal Tube; Placement: Oral; Tube Type: Cuffed-inflated; Tube Size(mm): 7 MM; Depth of Insertion: 23 CM; Measured From: lips; Attempts: 1; Cuff Infated: Air; Verified By: Direct visualization, Bilateral breath sounds, Chest Auscultation, CO2 Monitor 03/23/22 0740 by Wilfred Delgado APRN-CRNA 03/23/22 0823 by Sandy, Wilfred B, ROADWAY TECHNICIAN-BALANCE RECESSER Procedural Site (Incision) 03/23/22; 0806; Perineum; 03/23/22; 1642 03/23/22 0806 by Jazmin Costa RN 03/23/22 164 by Generic, Auto Release documented in this encounter Social History Tobacco Use Types Packs/Day Years Used Date Smoking Tobacco: Every Day Cigarettes 1 40 Smokeless Tobacco: Never Comments:pt said she will qu it in 09/2021 Alcohol Use Standard Drinks/Week Comments No 0 (1 standard drink = 0.6 oz pur e alcohol) PHQ-2 Answer Date Recorded PHQ2 TOTAL SCORE 1 03/26/2022 Sex and Gender Information Value Date Recorded Sex Assigned at Not on file Gender Identity Not on file Sexual Orientation Not on file documented as of this encounter Progress Notes * Mary Hughes MD - 03/23/2022 10:50 AM CDT ANESTHESIA POSTOP EVALUATION NOTE Procedure: TRANSURETHRAL RESECTION BLADDER TUMOR (TURBT) (Bladder) URETEROSCOPY (Left Bladder) Rody Zaidi is a 61 year old female Patient Vitals for the past 6 hrs: BP Temp Pulse Resp SpO2 Pain Rating Score #1 Pain Scale/Observation 03/23/22 0600 108/71 97.6 ??F (36.4 ??C) 88 16 95 % 7 N 03/23/22 0828 94/59 96.8 ??F (36 ??C) 71 21 100 % -- B 03/23/22 0830 94/59 -- 70 22 99 % -- -- 03/23/22 0835 90/57 -- 73 22 97 % -- -- 03/23/22 0840 94/48 -- 76 20 96 % -- -- 03/23/22 0842 -- -- -- -- -- 8 N;B 03/23/22 0845 88/50 -- 75 20 96 % -- -- 03/23/22 0850 91/56 -- 79 17 97 % -- -- 03/23/22 0855 104/61 -- 81 14 94 % 4 N;B 03/23/22 0900 84/49 -- 78 25 93 % 4 N;B 03/23/22 0905 84/49 -- 80 20 93 % -- -- 03/23/22 0910 90/55 -- 84 22 93 % 4 N;B 03/23/22919 -- -- -- -- -- 8 N 03/23/22921 89/56 97.4 ??F (36.3 ??C) 84 20 93 % -- -- 03/23/22 0937 -- -- -- -- -- 7 N 03/23/22 0939 104/68 -- 87 18 93 % -- -- Anesthesia Type: general ETT Pre-op Diagnosis Codes: * Diagnosis unknown [R69] Mental Status: sufficiently recovered from acute administration of anesthesia to participate in theevaluation and neurologic status has returned to preoperative level Neuro Status: No numbness, tingling or visual disturbances Respiratory Function: natural Cardiac Function: stable Postop Pain: needs to be addressed/see medication order Postop Hydration: adequate Postop Nausea: none Assessment: no apparent anesthetic complications, patient tolerated procedure well and no evidence of recall Patient Disposition: Release from Anesthesia Care COMPLICATIONS: No complications documented. * Mary Hughes MD - 03/23/2022 7:24 AM CDT ANESTHESIA PREOPERATIVE EVALUATION NOTE Procedure: TRANSURETHRAL RESECTION BLADDER TUMOR (TURBT) (Bladder) URETEROSCOPY (Left Bladder) NPO status: Since Midnight; *Except Oral meds with H2O; YES Tobacco Since Midnight (03/23/2022 6:05 AM) Vitals: Patient Vitals for the past 6 hrs: BP Temp Pulse Resp SpO2 Pain Rating Score #1 03/23/22 0600 108/71 97.6 ??F (36.4 ??C) 88 16 95 % 7 ANESTHESIA PRE-EVALUATION NOTE The patient is a current smoker. The patient was instructed to abstain from smoking on day of procedure. The patient did not smoke on the day of the procedure. Physical Exam: Orientation X3 Airway/Mallampati Score: III Mouth Opening Distance: 3 fingerwidths Neck ROM: full TM Distance: > 3 FB Teeth: edentulous Heart: normal - S1 S2 Lungs: clear to ausculation bilaterally Review of Systems: History of anesthetic complications: No Sleep Apnea Risk: Yes, CPAP - non compliant GERD: Yes, well controlled Poor Exercise Tolerance: No Recent Chest Pain: No Shortness of Breath: No AICD/Pacemaker: No Renal Disease: Yes (CKD) Diagnostic Tests: Lab(s) reviewed: Yes. ANESTHESIA PLAN ASA Score: 3 (DM, HTN, COPD, CATHERINE, CKD, TIA, PVD, bladder cancer, GERD) NPO Status: No solids since midnight and No liquids within 2 hours Anesthesia Plan: general Planned Induction: intravenous Planned Postop Destination: PACU Anesthetic plan was discussed with: patient Anesthetic Plan discussion was: Consented The patient's procedural Anesthetic Plan was discussed with the BALANCE RECESSER. BMI, Height, Weight Tobacco History Estimated body mass index is 35.57 kg/m?? as calculated from the following: Height as of this encounter: 1.6 m (5' 3 ). Weight as of this encounter: 91.1 kg (200 lb 12.8 oz). Social History Tobacco Use Smoking Status Current Every Day Smoker ??? Packs/day: 1.00 ??? Years: 40.00 ??? Pack years: 40.00 ??? Types: Cigarettes Smokeless Tobacco Never Used Tobacco Comment pt said she will quit in 09/2021 Alcohol History Drug History Social History Substance and Sexual Activity Alcohol Use No Social History Substance and Sexual Activity Drug Use Yes ??? Types: Marijuana Comment: daily Outpatient Medications: Inpatient Medications: Outpatient Medications Marked as Taking for the 03/23/22 encounter (Hospital Encounter) Medication Sig Last Dose ??? albuterol HFA Inhale 2 (two) puffs by mouth every 4 hours as needed 03/23/2022 at am ??? [] ALPRAZolam Take 0.5 (one-half) tablet by mouth 3 times daily for 30 days Anxiety. ??? aspirin EC 03/10/2022 ??? budesonide-formoterol Inhale 2 (two) puffs by mouth 2 times daily 03/22/2022 at am ??? cetirizine cetirizine 10 mg tablet TAKE 1 TABLET BY MOUTH ONCE DAILY NEEDED 03/22/2022 at am ??? clopidogrel Take 1 (one) tablet by mouth once daily 03/15/2022 ??? cromolyn Instill 1 drop into both eyes 3 times daily 03/22/2022 at am ??? ezetimibe Take 1 (one) tablet by mouth once daily 03/22/2022 at am ??? famotidine Take 40 mg by mouth once daily 03/22/2022 at pm ??? FLUoxetine Take 1 (one) tablet by mouth once daily for 90 days Reasons: Major Depressive Disorder 03/22/2022 at am ??? HYDROcodone-acetaminophen Take 1 tablet by mouth 2 times daily 5/325 mg 03/22/2022 at am ??? isosorbide mononitrate CR 24hr Take 1 (one) tablet by mouth once daily 03/22/2022 at am ??? losartan Take 1 (one) tablet by mouth once daily 03/23/2022 at 0400 ??? metFORMIN Take 500 mg by mouth 2 times daily with morning and evening meal (Patient taking differently: Take 500 mg by mouth 2 times daily with morning and evening meal ) 03/22/2022 at pm ??? metoprolol succinate XL 24hr Take 1 (one) tablet by mouth once daily 03/23/2022 at 0400 ??? mirtazapine Take 0.5 (one-half) tablet by mouth at bedtime for 90 days Reasons: Major Depressive Disorder, Panic Disorder Past Week at Unknown time ??? onkzsvha-wiokhwhqv-hnacehlo INSTILL 1 DROP INTO AFFECTED EYE(S) EVERY 3 TO 4 HOURS WHILE AWAKE Past Month at Unknown time ??? fvgxkatn-iaorrecfb-tz SHAKE LIQUID AND INSTILL 4 DROPS TO AFFECTED EAR THREE TIMES DAILY Past Month at Unknown time ??? ondansetron ondansetron HCl 8 mg tablet TAKE 1 TABLET BY MOUTH EVERY 8 HOURS NEEDED 03/22/2022 at am ??? pantoprazole EC Take 1 (one) tablet by mouth once daily Reasons: need follow up visit for further [phone] option 1 03/20/2022 at Unknown time ??? polyethylene glycol 3350 Take 17 (seventeen) g by mouth once daily Past Week at Unknown time ??? potassium chloride ER Take 10 mEq by mouth once daily 03/22/2022 at am ??? tiotropium Inhale 1 (one) capsule by mouth once daily 03/22/2022 at am ??? vitamin D (ergocalciferol) Take 50,000 Units by mouth every 7 days 03/22/2022 at am Current Facility-Administered Medications Medication Dose Last Admin ??? ciprofloxacin 400 mg ??? lactated ringers New Bag at 03/23/22 0612 ??? lidocaine 0.2 mL 0.2 mL at 03/23/22 0613 ??? scopolamine 1 patch 1 patch at 03/23/22 0609 And ??? scopolamine patch placement confirmation Allergies: Allergies Allergen Reactions ??? Penicillins Other and Urticaria unknown Reaction: Hives, ??? Azithromycin Unknown ??? Risperidone Other Reported her face getting swollen ??? Statins [Hmg-Coa-R Inhibitors] Other Causes muscle tightness ??? Haloperidol Other unknown ??? Codeine Itching ??? Penicillin G Other ??? Triazolam Unknown Relevant Problems No relevant active problems Problem List: Patient Active Problem List Diagnosis Date Noted ??? CAD in [place] artery 10/24/2020 Priority: Not Prioritized ??? PAD (peripheral artery disease) Priority: Not Prioritized ??? MDD (recurrent major depressive disorder) in remission 08/05/2018 Priority: Not Prioritized ??? GIOVANNY (generalized anxiety disorder) 06/09/2017 ICD-10 update ??? Obesity 01/09/2017 ??? Nocturia 01/09/2017 ??? Personal history of transient ischemic attack (TIA), and cerebral infarction without residual deficits 01/09/2017 reported ??? Occlusion and stenosis of bilateral carotid arteries 01/09/2017 ??? Chronic pain syndrome 01/09/2017 ??? Type 2 diabetes mellitus with diabetic polyneuropathy 01/09/2017 EMG/NCV [facility] ??? Insomnia due to medical condition 01/09/2017 ??? Gastro-esophageal reflux disease without esophagitis 01/09/2017 ??? Primary osteoarthritis of one knee 01/09/2017 ??? Other asthma 01/09/2017 ??? Sleep related leg cramps 01/09/2017 ??? Other forms of angina pectoris 01/09/2017 ??? Essential (primary) hypertension 01/09/2017 ??? Hypersomnia due to medical condition 01/09/2017 ??? Chronic obstructive pulmonary disease 01/09/2017 ??? Personal history of traumatic brain injury 01/09/2017 Reports brief LOC. Age 17. ??? Restless legs syndrome 01/01/2017 ??? Obstructive sleep apnea 01/01/2017 ??? Cervicalgia 04/28/2015 ??? Other chronic pain 04/28/2015 Medical History: Past Medical History: Diagnosis Date ??? Anxiety ??? Asthma ??? Atherosclerosis of coronary artery ??? Bladder cancer ??? Chest pain pain 10/23 ??? Chronic obstructive pulmonary disease (COPD) ??? Depression ??? Essential hypertension ??? GERD (gastroesophageal reflux disease) ??? History of diabetes mellitus ??? Obesity ??? Peripheral vascular disease ??? Pure hypercholesterolemia ??? Sleep apnea does not use CPAP ??? Snoring ??? TIA (transient ischemic attack) Surgical History: Past Surgical History: Procedure Laterality Date ??? Cholecystectomy 2007 ??? HX C SECTION CLASSIC 1989 ??? HX CAROTID ENDARDECTOMY 2014 ??? HX TUBAL LIGATION 1989 ??? AL FOOT/TOES SURGERY PROC UNLISTED ??? Tympanostomy 2013 Covid Vaccine: Lab Results: Recent Labs Base Name 03/23/22 0614 [id number] 194* SPECIMENTYPE Venous Recent Labs Component Name 03/11/22 1045 WBC 12.5* RBC 5.42* HCT 46.2* HGB 14.9 PLTCOUNT 278 MCV 85.2 MCH 27.5 MCHC 32.3 MPV 9.9 Recent Labs Component Name 03/11/22 1045 02/27/22 0920 NITRITEUA NEGATIVE - NITRITE - neg PROTEINUA 2+* 0.3 g/L Recent Labs Component Name 03/11/22 1045 SODIUM 136 POTASSIUM 3.7 CALCIUM 9.3 CHLORIDE 99 CO2 25 GLUCOSE 172* BUN 18 CREATININE 1.18* No results found for requested labs within last 120 days. Recent Labs Result Component Current Result eGFR by MDRD 50 (L) (03/11/2022) documented in this encounter Procedure Notes * Wilfred Delgado, ROADWAY TECHNICIAN-BALANCE RECESSER - 03/23/2022 7:46 AM CDTAssociated Order(s): ETT Placement Endotracheal Tube Placement: Patient Location: OR. Intubation Event Date/Time: 03/23/2022 7:40 AM Procedure: intubation (68645). Procedure Section: Sedation: under general anesthesia. Indications for Airway Management: anesthesia Induction: standard IV Patient Position: sniffing Mask Ventilation: easy with oral airway. Blade [...] Yes Difficult Airway? No. Procedure Start Time: 03/23/2022 7:40 AM. Staff Section Anesthesia Provider: Wilfred Delgado APRN-CRNA, Performed the procedure documented in this encounter Miscellaneous Notes * Anesthesia Transfer of Care - Wilfred Delgado APRN-CRNA - 03/23/2022 8:34 AM CDT ANESTHESIA TRANSFER OF CARE NOTE Today's Date: 03/23/2022 Date of : 1960 Patient: Rody Zaidi Procedure(s): TRANSURETHRAL RESECTION BLADDER TUMOR (TURBT) URETEROSCOPY Surgeon(s): Primary: Jose Oliver MD Preop Diagnosis: Pre-op Diagnois: * Diagnosis unknown [R69] Pre-op Meds (From admission, onward) Start Stop Status Route Frequency Ordered 03/23/22 0545 acetaminophen (Tylenol) tablet 1,000 mg 03/23 0609 Completed PO ONCE 03/23/22 0537 03/23/22 0743 albuterol HFA (Proventil; Ventolin; Proair) 108 (90 Base) MCG/ACT inhaler -- Sent IN PRN 03/23/22 0820 03/23/22 0730 ciprofloxacin (Cipro) 400 mg in 200 mL IVPB 03/23 0742 Completed IV EVERY 12 HOURS 03/23/22 0553 03/23/22 0745 dexAMETHasone (Decadron) injection -- Sent IV PRN 03/23/22 0753 03/23/22 0826 diphenhydrAMINE (Benadryl) injection 25 mg -- Verified IV ONCE PRN 03/23/22 0826 03/23/22 07 esmolol (Brevibloc) injection -- Sent IV PRN 03/23/22 0753 03/23/22 0737 fentaNYL (PF) (Sublimaze) injection -- Sent IV PRN 03/23/22 0754 03/23/22 08 fentaNYL (PF) (Sublimaze) injection 50 mcg -- Verified IV EVERY 3 MIN PRN 03/23/22 0826 03/23/22 08 HYDROmorphone (Dilaudid) injection -- Sent IV PRN 03/23/22 0823 03/23/22 08 HYDROmorphone (Dilaudid) injection 0.5 mg -- Verified IV EVERY 5 MIN PRN 03/23/22 0826 03/23/22 08 HYDROmorphone (Dilaudid) injection 0.5 mg -- Verified IV EVERY 5 MIN PRN 03/23/22 0826 03/23/22 0545 lactated ringers infusion -- Verified IV PRE-OP CONTINUOUS 03/23/22 0537 03/23/22 08 lactated ringers infusion -- Verified IV CONTINUOUS 03/23/22 0826 03/23/22 07 lidocaine hcl (PF) (Xylocaine MPF) 2 % injection -- Sent IV PRN 03/23/22 07503/23/22 05 lidocaine PF (Xylocaine MPF) 1 % injection 0.2 mL -- Verified INFILTRATION PRE-OP MULTIPLE 03/23/22 0503/23/22729 midazolam (Versed) injection -- Sent IV PRN 03/23/22 07503/23/22 08 naloxone (Narcan) injection 0.04 mg -- Verified IV POST-OP MULTIPLE 03/23/22 0826 03/23/22752 ondansetron (Zofran) injection -- Sent IV PRN 03/23/22 07503/23/22 08 ondansetron (Zofran) injection 4 mg -- Verified IV ONCE PRN 03/23/22 0826 03/23/22 0737 propofol (Diprivan) injection -- Sent IV PRN 03/23/22 07503/23/22 0746 rocuronium (Zemuron) injection -- Sent IV PRN 03/23/22 0754 03/23/22 0545 scopolamine (Transderm-Scop) 1 patch And Linked Group Details 03/26 609 Verified TD ONCE 03/23/22 0503/23/22 09 scopolamine patch placement confirmation And Linked Group Details 03/26 2059 Dispensed TD 2 TIMES DAILY 03/23/2253603/23/22 0738 succinylcholine (Anectine) injection -- Sent IV PRN 03/23/22 0753 03/23/22 0820 sugammadex (Bridion) injection -- Sent IV PRN 03/23/22 0820 Post-op Diagnosis: * Diagnosis unknown [R69] . Allergies Allergen Reactions ??? Penicillins Other and Urticaria unknown Reaction: Hives, ??? Azithromycin Unknown ??? Risperidone Other Reported her face getting swollen ??? Statins [Hmg-Coa-R Inhibitors] Other Causes muscle tightness ??? Haloperidol Other unknown ??? Codeine Itching ??? Penicillin G Other ??? Triazolam Unknown Vitals: Patient Vitals for the past 3 hrs: BP Temp Pulse Resp SpO2 Pain Rating Score #1 03/23/2228 -- 96.8 ??F (36 ??C) -- -- -- -- 03/23/22 06 108/71 97.6 ??F (36.4 ??C) 88 16 95 % 7 Lines, Drains, and Airways Type Details Placement Removal Peripheral IV Date: 03/23/22; Time: 611; Orientation: Left; Location: Arm; Placed By: Ebony Rod RN; Gauge: 20 Gauge; Locals: Injectable; Tolerance: Well 03/23/22611 by Dorcas Sultana RN ETT Date: 03/23/22; Time: 0740; Placed By: Wilfred Delgado APRN-BALANCE RECESSER; Vent: easy with oral airway mask; Induction: Standard IV; Blade Type: Uyen; Blade Size: 3; Laryngoscopy View: Grade 1 (full cords); Intubation Adjuncts: Stylet; Tube: Endotracheal Tube; Placement: Oral; Tube Type: Cuffed-inflated; Tube Size(mm): 7 MM; Depth of Insertion: 23 CM; Measured From: lips; Attempts: 1; Cuff Infated: Air; Verified By: Direct visualization, Bilateral breath sounds, Chest Auscultation, CO2 Monitor 03/23/22 0740 by Wilfred Delgado APRN-CRNA 03/23/22 0823 by Wilfred Delgado APRN-CRNA Intraprocedure I/O Totals Intake lactated ringers infusion 600.00 mL Total Intake 600 mL Patient Transfer Location: PACU Transport Airway: supplemental O2, spontaneous respirations and oral airway Complications: None Handoff Given? Yes Checklist or [...] understanding of report from the receiving PACUteam. LOW Samuels documented in this encounter Plan of Treatment Upcoming Encounters Date Type Department Care Team (Late st Contact Info) Description 01/19/2025 11:30 AM SCREENING TECH Procedure visit [facility] - Urology [address] [place] [address] [address] [place] [address] Jose Oliver MD [facility] [place] [address] documented as of this encounter Goals Goal [...] Associated Diagnosis Comments ENDOTRACHEAL TUBE NOTE Routine 03/23/2022 7:46 AM CDT documented in this encounter Results * ETT LINE PERFORMABLE (03/23/2022 7:46 AM CDT) Narrative Wilfred Delgado APRN-CRNA - 03/23/2022 7:46 AM CDT Wilfred Delgado APRN-CRNA ? 03/23/2022 ??7:46 AM Endotracheal Tube Placement: ? Patient Location: OR. Intubation Event Date/Time: ??03/23/2022 7:40 AM Procedure: intubation (00403). Procedure Section: ?? Sedation: under general anesthesia. [...] Mary Hughes MD GENERAL ANESTHESIA O RDERABLES documented in this encounter Visit Diagnoses Not on filedocumented in this encounter Administered Medications Inactive Administered Medications - up to 3 most recent administrations Medication Order MAR Action Action Date Dose Rate Site albuterol HFA (Proventil; Ventolin; Proair) 108 (90 Base) MCG/ACT inhaler Inhalation, PRN, Starting on Wed03/23/22 at 0743, Until Wed03/23/22 at 0834, Anesthesia Intra-op $ Given 03/23/2022 8:19 AM CDT 4 puffs $ Given 03/23/2022 7:43 AM CDT 4 puffs ciprofloxacin (Cipro) 400 mg in 200 mL IVPB 400 mg, at 200 mL/hr, Intravenous, EVERY 12 HOURS, 1 dose, First dose on Wed03/23/22 at 0730, Indication for anti-infective therapy: Surgical prophylaxis $ Given 03/23/2022 7:42 AM CDT 400 mg dexAMETHasone (Decadron) injection Intravenous, PRN, Starting on Wed03/23/22 at 0745, Until Wed03/23/22 at 0834, Anesthesia Intra-op $ Given 03/23/2022 7:45 AM CDT 8 mg esmolol (Brevibloc) injection Intravenous, PRN, Starting on Wed03/23/22 at 0737, Until Wed03/23/22 at 0834, Anesthesia Intra-op $ Given 03/23/2022 8:15 AM CDT 20 mg $ Given 03/23/2022 7:37 AM CDT 40 mg fentaNYL (PF) (Sublimaze) injection Intravenous, PRN, Starting on Wed03/23/22 at 0737, Until Wed03/23/22 at 0834, Anesthesia Intra-op $ Given 03/23/2022 8:03 AM CDT 50 mcg $ Given 03/23/2022 7:37 AM CDT 100 mcg HYDROmorphone (Dilaudid) injection Intravenous, PRN, Starting on Wed03/23/22 at 0823, Until Wed03/23/22 at 0834, Anesthesia Intra-op $ Given 03/23/2022 8:23 AM CDT 0.5 mg lidocaine hcl (PF) (Xylocaine MPF) 2 % injection Intravenous, PRN, Starting on Wed03/23/22 at 0737, Until Wed03/23/22 at 0834, Anesthesia Intra-op $ Given 03/23/2022 7:37 AM CDT 100 mg midazolam (Versed) injection Intravenous, PRN, Starting on Wed03/23/22 at 0730, Until Wed03/23/22 at 0834, Anesthesia Intra-op $ Given 03/23/2022 7:37 AM CDT 2 mg $ Given 03/23/2022 7:30 AM CDT 2 mg ondansetron (Zofran) injection Intravenous, PRN, Starting on Wed03/23/22 at 0753, Until Wed03/23/22 at 0834, Anesthesia Intra-op $ Given 03/23/2022 7:53 AM CDT 8 mg propofol (Diprivan) injection Intravenous, PRN, Starting on Wed03/23/22 at 0737, Until Wed03/23/22 at 0834, Anesthesia Intra-op $ Given 03/23/2022 7:37 AM CDT 200 mg rocuronium (Zemuron) injection Intravenous, PRN, Starting on Wed03/23/22 at 0746, Until Wed03/23/22 at 0834, Anesthesia Intra-op $ Given 03/23/2022 7:54 AM CDT 20 mg $ Given 03/23/2022 7:46 AM CDT 20 mg succinylcholine (Anectine) injection Intravenous, PRN, Starting on Wed03/23/22 at 0738, Until Wed03/23/22 at 0834, Anesthesia Intra-op $ Given 03/23/2022 7:38 AM CDT 100 mg sugammadex (Bridion) injection Intravenous, PRN, Starting on Wed03/23/22 at 0820, Until Wed03/23/22 at 0834, Anesthesia Intra-op $ Given 03/23/2022 8:20 AM CDT 200 mg documented in this encounter Care Teams Hinging Machine Operator Relationship Specialty Start Date End Date Neva Holden MD [address] [place] [id number] PCP - General 05/06/20 05/25/23 documented as of this encounter
--- OUTSIDE RECORDS SUMMARY | 2024-11-12 04:43 | XMS_ITS | Encounter Summary ---
Author Organization [facility] Address [address] [place] [address] Care Team Providers Care Director Building Name Role Phone Deisi Andrews MD Primary Care Provider [phone] Reason for Visit * Reason Onset Date Comments Surgery Scheduling 10/25/2023 Called harjit brooks and got her scheduled for surgery she chose 12/07/2023. Will send her Letter mailed/emailed/MyChart/verbal confirmation Encounter Details Date Type Department Care Team (Late st Contact Info) Description 10/25/2023 Telephone [facility] - Urology [address] [place] [address], [place] [address] Jose Oliver MD [address] [place] [address] [place] [address] Surgery Scheduling (Called patient and got her scheduled for surgery she chose 12/07/2023. Will send her Letter mailed/emailed/MyChart /verbal confirmation) Social History Tobacco Use Types Packs/Day Years [...] * Telephone Encounter - Raegan Armas - 10/25/2023 1:10 PM CST Called patient and got her scheduled for surgery she chose 12/07/2023. 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
--- OUTSIDE RECORDS SUMMARY | 2024-11-12 04:43 | XMS_ITS | Encounter Summary ---
Author Organization [facility] Address [address] [place] [address] Care Team Providers Care Ux Lead Name Role Phone Neva Holden MD Primary Care Provider [phone] Reason for Visit * Auth/Cert Specialty Diagnoses / Procedures Referred By Nacho t Referred To Contact Diagnoses Diagnosis unknown Diagnosis unknown [R69] Procedures TRANSURETHRAL RESECTION BLADDER TUMOR (TURBT) URETEROSCOPY (FLEXIBLE OR RIGID) Referral ID Status Reason Start Date Expiration Date Visits Re quested Visits Authorized [id number] 1 1 Encounter Details Date Type Department Care Team (Late st Contact Info) Description 03/23/2022 7:30 AM CDT - 03/23/2022 9:20 AM CDT Surgery [facility] [address] [place] [address] Jose Oliver MD [address] [place] [address] [place] [id number] TRANSURETHRAL RESECTION BLADDER TUMOR (TURBT) Surgery Details Date/Time Status Location OR Service Patient Class Case Class Case Type Trauma Case? 03/23/2022 7:30 AM Posted [facility] MAIN OR OR 05 Urology Surgery Day Care Elective > 5 days Panel 1 Procedure LRB Anes Op Region Wound Class Comments TRANSURETHRAL RESECTION BLAD MARIO TUMOR (TURBT) General Bladder Clean Contaminated URETEROSCOPY Left General Bladder Clean Contaminate d Surgeon Surgeon Role Service Panel Jose Oliver MD Primary Urology 1 documented in this encounter Social History Tobacco Use Types Packs/Day Years Used Date Smoking Tobacco: Every Day Cigarettes 1 40 Smokeless Tobacco: Never Tobacco Cessation:Ready to Q uit: No; Counseling Given: Yes Comments:pt said she will quit in 09/2021 [...] Sign Reading Time Taken Comments Blood Pressure 90/55 03/23/2022 9:10 AM CDT Pulse 84 03/23/2022 9:10 AM CDT Temperature 36 ??C (96.8 ??F) 03/23/2022 8:28 AM CDT Respiratory Rate 22 03/23/2022 9:10 AM CDT Oxygen Saturation 93% 03/23/2022 9:10 AM CDT Inhaled Oxygen Concentration - - Weight 91.1 kg (200 lb 12.8 oz) 03/23/2022 6:00 AM CDT Height 160 cm (5' 3 ) 03/23/2022 6:00 AM CDT Body Mass Index 35.57 03/23/2022 6:00 AM CDT documented in this encounter Discharge Instructions * Discharge Instructions* Kofi Martin MD - 03/23/2022 8:46 AM CDT You underwent a repeat Transurethral Resection of Bladder Tumor and Left Ureteroscopy on March 23, [address] Oliver. The previously placed left ureteral stent was removed; a new ureteral stent wasNOT placed. You may notice some blood in your urine after this surgery. This should resolve within 2-3 days. Werecommend plentiful hydration (drinking over 2 liters of fluid per day) to help this resolve more quickly. Post Operative Pain: For post operative pain or discomfort, you have been prescribed Tylenol (acetaminophen) and Motrin (ibuprofen). We recommend taking them in alternating fashion every 3-4 hours, especially in the first 24 hours after surgery, then as needed thereafter. Follow Up: Dr. Oliver will contact you by phone to review your pathology results once they are available. Contact Us: If you have any questions about your surgery or the recovery process, please contact [facility] Urology at [phone] during regular business hours. On weekends or in the evening, please contact [facility] Hospital at [phone] and ask for whoever is fire information officer for Dr. Oliver/ Urology. In addition, please contact us using [...] moderate COPD by GOLD classification ([facility]) Inhale 2 (two) puffs by [...] tablet 4 12/08/2021 vitamin D, ergocalciferol, (DRISDOL) 42169 UNITS capsule Take 1 (one) capsule by mouth every 7 days 01/29/2019 acetaminophen (TYLENOL) 325 MG tablet Take 2 (two) tablets by mouth every 6 hours as needed for Fever or Pain Maximum allowable Acetaminophen amount = 4 Grams (4000 mg) / 24 hours. 60 tablet 03/23/2022 06/21/2024 aspirin EC (ECOTRIN) 325 MG tablet 12/15/2015 01/11/2023 budesonide-formoterol (SYMBICORT) 160-4.5 MCG/ACT inhalerIndications:Sta ge 2 moderate COPD by GOLD classification ([facility]) Inhale 2 (two) puffs by mouth 2 times daily 10.2 g 5 01/05/2022 12/03/2022 evolocumab (REPATHA SURECLICK) 140 MG/ML auto-injector INJECT 1 PEN UNDER THE SKIN EVERY 14 DAYS 6 mL 4 12/08/2021 05/29/2022 famotidine (PEPCID) 40 MG tablet Take 1 (one) tablet by mouth once daily 01/19/2022 01/11/2023 FLUoxetine (PROZAC) 60 MG tabletIndications:Rhea r Depressive Disorder Take 1 (one) tablet by mouth once daily for 90 days Reasons: Major Depressive Disorder 90 tablet 12/31/2021 03/26/2022 isosorbide mononitrate CR 24hr (IMDUR) 60 MG tablet Take 1 (one) tablet by mouth once daily 90 tablet 4 12/08/2021 01/11/2023 metoprolol succinate XL 24hr (TOPROL XL) 50 MG tablet Take 1 (one) tablet by mouth once daily 90 tablet 3 12/08/2021 01/11/2023 mirtazapine (REMERON) 15 MG tabletIndications:Rhea r Depressive Disorder,Panic Disorder Take 0.5 (one-half) tablet by mouth at bedtime for 90 days Reasons: Major Depressive Disorder, Panic Disorder 45 tablet 12/31/2021 03/26/2022 nkgrtkgf-fkvndvoww-hga ameth (MAXITROL) ophthalmic suspension INSTILL 1 DROP INTO AFFECTED EYE(S) EVERY 3 TO 4 HOURS WHILE AWAKE 01/06/2022 01/11/2023 rfcepryl-gkkdizdbg-ik (CORTISPORIN) 3.5-66644-6 otic suspension SHAKE LIQUID AND INSTILL 4 DROPS TO AFFECTED EAR THREE TIMES DAILY 01/06/2022 01/11/2023 nicotine (NICODERM CQ) 21 MG/24HR patch APPLY 1 PATCH TOPICALLY ONCE DAILY 01/16/2022 10/22/2023 ondansetron (ZOFRAN) 8 MG tablet 1 (one) tablet every 6 hours as needed 11/22/2023 pantoprazole EC (PROTONIX) 40 MG tabletIndications:need follow up visit for further [phone] option 1 Take 1 (one) tablet by mouth once daily Reasons: need follow up visit for further [phone] option 1 90 tablet 3 01/23/2022 06/15/2024 polyethylene glycol 3350 (MIRALAX) 17 GM/SCOOP powderIndications:Hemo rrhoids, unspecified hemorrhoid type Take 17 (seventeen) g by mouth once daily 225 g 1 09/01/2021 11/22/2023 potassium chloride ER (KLOR-CON) 10 MEQ tablet Take 1 (one) tablet by mouth once daily 02/06/2022 01/11/2023 tiotropium (SPIRIVA HANDIHALER) 18 MCG inhalation capsule Inhale 1 (one) capsule by mouth once daily 30 capsule 11 11/03/2021 01/11/2023 documented as of this encounter H&P Notes * Kofi Martin MD - 03/23/2022 5:53 AM CDT Urologic Surgery Pre-operative History & Physical 03/23/2022 History of Present Illness: Rody Zaidi is a 61 year oldfemale with bladder cancer diagnosed on TURBT of a 2-3 cm mass covering the left trigone, lateral wall and bladder neck in January [address] Santa. OSH pathology showed high grade pT1 vs pT2. Patient was referred to [facility] for further evaluation/management. Internal review of pathology slides determined patient had high grade pT1 urothelial cell carcinoma. However there also appears to be left distal ureteral involvement with obstruction requiring stent. The patient presents today for operative intervention. PMH: PVD with stenting and on DAPT (plavix + ASA 325), COPD, CATHERINE (no CPAP), heavy smoking hx (now 1PPD but previously 3 PPD x 30 yrs) Surgical hx: cholecystectomy, , bilateral tubal ligation PMHx/PSurgHx: Past Medical History: Diagnosis Date ??? Anxiety [...] 2014 ??? HX TUBAL LIGATION 1989 ??? OR FOOT/TOES SURGERY PROC UNLISTED ??? Tympanostomy 2013 Medications: Prior to Admission medications Medication Sig Start Date End Date Taking? Authorizing Provider albuterol (PROVENTIL;VENTOLIN) (2.5 MG/3ML) 0.083% nebulizer solution Inhale 2.5 (two and one-half)mg by mouth every 4 hours as needed for Shortness of Breath 11/03/21 Yes Bora Ferreira MD albuterol HFA (PROAIR HFA) 108 (90 Base) MCG/ACT inhaler Inhale 2 (two) puffs by mouth every 4 hours as needed 01/05/22 Yes Billy Don MD aspirin EC (ECOTRIN) 325 MG tablet 12/15/15 Yes Provider, MD Ramírez budesonide-formoterol (SYMBICORT) 160-4.5 MCG/ACT inhaler Inhale 2 (two) puffs by mouth 2 times daily 01/05/22 Yes Billy Don MD cetirizine (ZYRTEC) 10 MG tablet cetirizine 10 mg tablet TAKE 1 TABLET BY MOUTH ONCE DAILY NEEDED Yes Ramírez Baeza MD clopidogrel (PLAVIX) 75 MG tablet Take 1 (one) tablet by mouth once daily 12/08/21 Yes Monica Quijano MD cromolyn (CROLOM) 4 % ophthalmic solution Instill 1 drop into both eyes 3 times daily 06/12/20 Kathleen Valdovinos MD EPINEPHrine (EPIPEN) 0.3 MG/0.3ML auto-injector pen epinephrine 0.3 mg/0.3 mL injection, auto-injector Yes Ramírez Baeza MD evolocumab (REPATHA SURECLICK) 140 MG/ML auto-injector INJECT 1 PEN UNDER THE SKIN EVERY 14 DAYS 12/08/21 Yes Monica Quijano MD ezetimibe (ZETIA) 10 MG tablet Take 1 (one) tablet by mouth once daily 12/08/21 Yes Monica Quijano MD famotidine (PEPCID) 40 MG tablet Take 40 mg by mouth once daily 01/19/22 Yes Ramírez Baeza MD FLUoxetine (PROZAC) 60 MG tablet Take 1 (one) tablet by mouth once daily for 90 days Reasons: MajorDepressive Disorder 12/31/21 03/31/22 Yes Kathleen Stevenson MD HYDROcodone-acetaminophen (NORCO) 10-325 MG tablet Take 1 tablet by mouth 2 times daily 5/325 mg 08/28/20 Yes Ramírez Baeza MD ibuprofen (MOTRIN) 600 MG tablet 02/09/22 Ramírez Baeza MD isosorbide mononitrate CR 24hr (IMDUR) 60 MG tablet Take 1 (one) tablet by mouth once daily 12/08/21Yes Monica Quijano MD losartan (COZAAR) 100 MG tablet Take 1 (one) tablet by mouth once daily 12/08/21 Yes Monica Quijano MD metFORMIN (GLUCOPHAGE) 500 MG tablet Take 500 mg by mouth 2 times daily with morning and evening meal Patient taking differently: Take 500 mg by mouth 2 times daily with morning and evening meal 12/27/16 Yes Ramírez Baeza MD metoprolol succinate XL 24hr (TOPROL XL) 50 MG tablet Take 1 (one) tablet by mouth once daily 12/08/21 Yes Monica Quijano MD mirtazapine (REMERON) 15 MG tablet Take 0.5 (one-half) tablet by mouth at bedtime for 90 days Reasons: Major Depressive Disorder, Panic Disorder 12/31/21 03/31/22 Yes Kathleen Stevenson MD zhawomcw-xogcvgmmf-pqwwnxsk (MAXITROL) ophthalmic suspension INSTILL 1 DROP INTO AFFECTED EYE(S) EVERY 3 TO 4 HOURS WHILE AWAKE 01/06/22 Ramírez Baeza MD hlvkmrah-saywhmiml-av (CORTISPORIN) 3.5-71269-3 otic suspension SHAKE LIQUID AND INSTILL 4 DROPS TOAFFECTED EAR THREE TIMES DAILY 01/06/22 Yes Ramírez Baeza MD nicotine (NICODERM CQ) 14 MG/24HR patch Apply 1 (one) patch to skin once daily 01/05/22 Yes Billy Don MD nicotine (NICODERM CQ) 21 MG/24HR patch APPLY 1 PATCH TOPICALLY ONCE DAILY 01/16/22 Ramírez Baeza MD nicotine (NICODERM CQ) 7 MG/24HR patch Apply 1 (one) patch to skin once daily 01/05/22 Billy Don MD nitroGLYCERIN (NITROSTAT) 0.4 MG tablet Dissolve 1 (one) tablet under the tongue every 5 minutes asneeded for Angina 12/08/21 Yes Monica Quijano MD ondansetron (ZOFRAN) 8 MG tablet ondansetron HCl 8 mg tablet TAKE 1 TABLET BY MOUTH EVERY 8 HOURS NEEDED Yes Ramírez Baeza MD oxybutynin CR 24hr (DITROPAN XL) 15 MG tablet TAKE 1 TABLET BY MOUTH EVERY DAY FOR BLADDER SPASM/DISCOMFORT Patient not taking: Reported on 03/17/2022 01/21/22 Ramírez Baeza MD pantoprazole EC (PROTONIX) 40 MG tablet Take 1 (one) tablet by mouth once daily Reasons: need follow up visit for further [phone] option 1 01/23/22 Yes Sebastian Lombardi MD polyethylene glycol 3350 (MIRALAX) 17 GM/SCOOP powder Take 17 (seventeen) g by mouth once daily Patient not taking: No sig reported 09/01/21 Sebastian Lombardi MD potassium chloride ER (KLOR-CON) 10 MEQ tablet Take 10 mEq by mouth once daily 02/06/22 Yes ProviderRamírez MD tiotropium (SPIRIVA HANDIHALER) 18 MCG inhalation capsule Inhale 1 (one) capsule by mouth once daily 11/03/21 Yes Bora Ferreira MD vitamin D, ergocalciferol, (DRISDOL) 61512 UNITS capsule Take 50,000 Units by mouth every 7 days 01/29/19 Yes Provider, MD Ramírez Allergies: Allergies Allergen Reactions ??? Penicillins Other and Urticaria unknown Reaction: Hives, ??? Azithromycin Unknown ??? Risperidone Other Reported her face getting swollen ??? Statins [Hmg-Coa-R Inhibitors] Other Causes muscle tightness ??? Haloperidol Other unknown ??? Codeine Itching ??? Penicillin G Other ??? Triazolam Unknown Review of Systems: General: Negative Skin: Negative Eyes: Negative Ears/nose/mouth: Negative Lungs:Negative Heart:Negative Gastrointestinal: Negative Genitourinary: Negative Musculoskeletal: Negative Nervous system: Negative Reproductive system: Negative Hematologic: Negative Lymphatic: Negative Endocrine: Negative Physical Exam: Wt Readings from Last 1 Encounters: 03/17/22 195 lb (88.5 kg) VS: Ht 5' 3 (1.6 m) Wt 195 lb (88.5 kg) BMI 34.54 kg/m2 General: NAD, alert, cooperative, oriented to person/place/time Cardiovascular: regular rate, extremities WWP Respiratory: normal effort on RA Abdomen: SNTND : deferred to OR Imaging: Outside CT w/con 01/13/22 ? enhancing mass along posterolateral aspect of bladder including trigone suspicious for uCC, with at least partial obstruction of distal left ureter and prominent left HUN; also probable small stable left adrenal adenoma. REPORT is in media tab, but images NOT in synapse/Epic. ASSESSMENT: 61 year oldfemale with recently diagnosed pT1 bladder cancer involving left trigone and left distalureter PLAN: Plan for Transurethral Resection of Bladder Tumor and Left Ureteroscopy in operating room today. Kofi Martin MD Urology PGY4 03/23/2022 5:53 AM documented in this encounter OR Notes * Brief Op Note - Kofi Martin MD - 03/23/2022 7:58 AM CDT Brief Op Note Procedure: TRANSURETHRAL RESECTION BLADDER TUMOR (TURBT), LEFT URETEROSCOPY, REMOVAL OF LEFT URETERAL STENT Patient Name: Rody Zaidi Date of Service: 03/23/2022 Pre-Op Diagnosis: Bladder cancer Post-Op Diagnosis: Same as above Surgeon(s) and Role: * Jose Oliver MD - Primary Gallery Director(s): Kofi Martin MD Anesthesia Type: general ETT Complications: None Findings: Previously placed left ureteral stent, unencrusted, removed easily with flex grasper. White scar in area of previous resection along left lateral wall extending to left bladder neck. Left UO encircled by erythematous edematous tissue, likely inflammation/reactive. Similarly edematous/erythematous tissue noted in left distal ureter/UVJ. EBL: Minimal (~2 mL) Drains: None Specimen(s): ID Type Source Tests Collected by Time Destination A : BLADDER TUMOR Pathology/Cytology Bladder Mass PATHOLOGY TISSUE EXAM (STL) Jose Oliver MD 03/23/2022 0811 Implant(s): * No implants in log * Koif Martin MD Urology PGY4 03/23/2022 8:40 AM * Operative - Kofi Martin MD - 03/23/2022 7:58 AM CDT UROLOGY OPERATIVE REPORT PROCEDURE: Cystoscopy, Transurethral Resection of Bladder Tumor (< 2 cm), Left Ureteroscopy, Removal of Left Ureteral Stent DATE OF PROCEDURE: 03/23/2022 PREOP DIAGNOSIS: Bladder mass POSTOP DIAGNOSIS: Same ANESTHESIA: General ETT SURGEONS: - Attending: Jose Oliver MD - Resident: Kofi Martin MD FINDINGS: Bilateral UO in orthotopic position. Previously placed left ureteral stent, unencrusted, removed easily with flex grasper. White scar in area of previous resection along left lateral wall extending to left bladder neck. Left UO encircled by erythematous edematous tissue, likely inflammatory/reactive - this was resected and sent as specimen. Similarly edematous/erythematous tissue noted in left distal ureter/UVJ. SPECIMENS: Bladder tumor (from area described above) DRAINS: None COMPLICATIONS: None INDICATIONS FOR PROCEDURE: Rody Zaidi is a 61 year oldfemale with bladder cancer diagnosed on TURBT of a 2-3 cm mass covering the left trigone, lateral wall and bladder neck in January [address] Santa. OS pathology showed high grade pT1 vs pT2. Patient was referred to [facility] for further evaluation/management. Internal review of pathology slides determined patient had high grade pT1 urothelial cell carcinoma. However there also appears to be left distal ureteral involvement with obstruction requiring stent. The patient presents today for operative intervention. After reviewing the various risks benefits and alternatives, patient provided informed consent to the [facility]. DESCRIPTION OF PROCEDURE: Patient was brought to the OR, timeout was performed, SCDs were placed. After IV antibiotics and anesthesia were administered, the patient was positioned in dorsal lithotomy. The perineum and genitalia were prepped and draped in the usual sterile fashion. A surgical timeout was performed per protocol. A 26Fr resectoscope with visual obturator was advanced into the bladder. The bladder was examined with the above findings. The area of concern was identified but previously placed ureteral stent would need to be removed before ureteroscopy and resection could begin. Therefore the resectoscope was wi thdrawn, and a 21Fr cystoscope was advanced into the bladder instead. A flexible grasper was inserted through the cytoscope and used to grab the ureteral stent. The cystoscope was then withdrawn withthe grasper holding the stent and the stent was thus removed. A semirigid ureteroscope was assembled and advanced carefully into the left UO. Erythematous/edematous tissue was observed in the left UVJ and most distal 1-2cm of the left ureter, similar in appearance to the tissue surrounding the left UO. There were no obvious tumors or lesions to biopsy, and noareas of stenosis or obstruction. Thus there was no indication to replace the ureteral stent. The ur eteroscope was withdrawn. The 26Fr resectoscope with obturator was then advanced back into the bladder. The obturator was removed and replaced with a working element and 24Fr resection electrode loop. The left UO and surrounding 1 - 1.5 cm of erythematous/edematous tissue was resected using monopolar electrocautery on cutting setting. The resected left UO remained visible afterwards. We attempted to include muscle withoutexcessive cauterization in our resection. The mucosal edges of the resected area were fulgurated until meticulous hemostasis was achieved. All resected tissue fragments drained easily through the scope and the specimen was sent in formalin to pathology for evaluation. The bladder was again visualized, confirming complete tumor resection, absence of bleeding or perforation and intact ureteral orifices. The bladder was drained and the scope was removed. Patient tolerated the procedure well and was transferred to the PACU in satisfactory condition. EBL: Minimal (2 mL) DISPOSITION: PACU. Same day discharge. PLAN: Patient to be called once pathology results are available, next steps will be discussed at that time. Dr. Oliver was present for the entire procedure. Kofi Martin MD Urology Resident 03/23/2022 Associated attestation - Jose Oliver MD - 03/23/2022 9:01 AM CDT I was present for the entire procedure. documented in this encounter Plan of Treatment Upcoming Encounters Date Type Department Care Team (Late st Contact Info) Description 01/19/2025 11:30 AM DELIVERY ANALYST Procedure visit [facility] - Urology [address] [place] [address] [address] [place] [id number] Jose Oliver MD [facility] [place] [place] [phone] documented as of this encounter Goals Goal [...] Procedure Name Priority Date/Time Associated Diagnosis Comments CARDIAC RHYTHM STRIP ORDER 03/26/2022 11:43 PM CDT GLUCOSE - POINT OF CARE Routine 03/23/2022 8:38 AM CDT PATHOLOGY TISSUE EXAM (STL) Routine 03/23/2022 8:11 AM CDT Diagnosis unknown OR CYSTO/URETERO/PYELOSCO PY, DX 03/23/2022 6:40 AM CDT Diagnosis unknown TRANSURETHRAL RESECTION BLADDER TUMOR (TURBT) 03/23/2022 6:40 AM CDT Diagnosis unknown GLUCOSE - POINT OF CARE Routine 03/23/2022 6:14 AM CDT documented in this encounter Results * CARDIAC RHYTHM STRIP ORDER (03/26/2022 11:43 PM CDT) Narrative 03/26/2022 11:43 PM CDT Ordered by an unspecified provider. Scanned Document CARDIAC SERVICES ORD ERABLES * (ABNORMAL) GLUCOSE - POINT OF CARE (03/23/2022 8:38 AM CDT) Pathologist [facility] Glucose WB/POC 176(H) 70 - 106 mg/dL 03/23/2022 8:48 AM CDT [facility] Specimen Type Cap Fingerstick 2021 8:48 AM CDT [facility] Blood BLOOD SPECIMEN / Unknown 03/23/2022 8:38 AM CDT 03/23/2022 8:48 AM CDT Jose Oliver MD LAB - POINT OF CAR E ORDERABLES [facility] [address] [place] [address] * PATHOLOGY TISSUE EXAM (STL) (03/23/2022 8:11 AM CDT) Case Report Surgical Pathology Report ? Case: [id number] ? Authorizing Provider: ??Jose Oliver MD ?Collected: ? 03/23/2022 08:11 AM ? Ordering Location: ? [facility] ? Received: ?03/23/2022 08:51 AM ? Pathologist: ? Kenan Maria MD ? Specimen: ?Bladder Mass, BLADDER TUMOR ? 03/24/2022 4:30 PM CDT [facility] Final Diagnosis Urinary bladder, transurethral resection of bladder tumor: 1. Negative for malignancy 2. Acute and chronic inflammation, fibrosis, and dystrophic calcification consistent with biopsy site changes 3. Detrusor muscle present, negative for tumor invasion 03/24/2022 4:30 PM CDT [facility] Clinical History Bladder mass 03/24/2022 4:30 PM CDT [facility] Gross Description The requisition and specimen are identified with patient's name and date of . Received in formalin, specimen A, bladder tumor aggregate of hawthorne-pink hawthorne soft tissues, 1.5 x 1.5 x 0.3 cm. Entirely submitted in cassette A1. LJ 03/24/2022 4:30 PM CDT [facility] Microscopic Description Immunostain for pancytokeratin (control appropriate) is negative for tumor. Residual surface urothelium has active directory systems administrator maturation. 03/24/2022 4:30 PM CDT [facility] Disclaimer All histochemical and/or immunohistochemical results are interpreted with controls that demonstrate appropriate staining reactions before reporting results. Note on use of immunocytochemistry reagents: This test was developed and its performance characteristic determined by [facility], Department of Laboratory Medicine. It has not [...] interpreted with caution. 03/24/2022 4:30 PM CDT [facility] Embedded Images 03/24/2022 4:30 PM CDT [facility] Pathology/Cytolo gy MASS OF URINARY BLADDER / Unknown 03/23/2022 8:11 AM CDT 03/23/2022 8:51 AM CDT Comment:Pre-op diagnosis: Diagnosis unknown [R69] Jose Oliver MD LAB - PATHOLOGY/CY TOLOGY ORDERABLES Performing Organization Address [facility] de Phone Number [facility] [address] [place], [place] [phone] * (ABNORMAL) GLUCOSE - POINT OF CARE (03/23/2022 6:14 AM CDT) Glucose WB/POC 194(H) 70 - 106 mg/dL 03/23/2022 6:20 AM CDT [facility] Specimen Type Venous 03/23/2022 6:20 AM CDT [facility] Blood BLOOD SPECIMEN / Unknown 03/23/2022 6:14 AM CDT 03/23/2022 6:20 AM CDT Jose Oliver MD LAB - POINT OF CAR E ORDERABLES [facility] [address] [place] [address] documented in this encounter Visit Diagnoses Diagnosis Pain Generalized pain Diagnosis unknown Other unknown and unspecified cause of morbidity or mortality Diagnosis unknown Other unknown and unspecified cause of morbidity or mortality documented in this encounter Administered Medications Inactive Administered Medications - up to 3 most recent administrations Medication Order MAR Action Action Date Dose Rate Site 0.9% nacl irrigation solution PRN, Starting on Wed03/23/22 at 0834, Until Wed03/23/22 at 0835, Intra-op $ Given 03/23/2022 8:34 AM CDT 5,000 mL acetaminophen (Tylenol) tablet 1,000 mg 1,000 mg, Oral, ONCE, 1 dose, On Wed03/23/22 at 0545, Patient preference for lesser PRN pain meds may be honored when the patient requests a less strong medication, a lower dose, or a less intrusive route of administration when the lesser drug, dose and route have been ordered for the patient. This patient request must be documented in the MAR., Pre-op $ Given 03/23/2022 6:09 AM CDT 1,000 mg diphenhydrAMINE (Benadryl) injection 25 mg 25 mg, Intravenous, ONCE PRN, Nausea/Vomiting, 1 dose, Starting on Wed03/23/22 at 0826, Until Wed03/23/22 at 1142, Second choice, use if first choice was ineffective., PACU fentaNYL (PF) (Sublimaze) injection 50 mcg 50 mcg, Intravenous, EVERY 3 MIN PRN, Mild Pain, 4 doses, Starting on Wed03/23/22 at 0826, Until Wed03/23/22 at 1142, Maximum total of 4 doses. If patient [...] documented in the MAR., PACU $ Given 03/23/2022 8:42 AM CDT 50 mcg HYDROmorphone (Dilaudid) injection 0.5 mg 0.5 mg, Intravenous, EVERY 5 MIN PRN, Moderate Pain, 4 doses, Starting on Wed03/23/22 at 0826, Until Wed03/23/22 at 1142, Maximum total of 4 doses If patient [...] injection 0.5 mg 0.5 mg, Intravenous, EVERY 5 MIN PRN, Severe Pain, 4 doses, Starting on Wed03/23/22 at 0826, Until Wed03/23/22 at 1142, Maximum total of 4 doses If patient [...] must be documented in the MAR., PACU ibuprofen (Motrin) tablet 600 mg 600 mg, Oral, POST-OP ONCE, 1 dose, On Wed03/23/22 at 0945, Maximum allowable amount = 3200 mg / 24 hours. Patient preference for lesser PRN pain meds may be honored when the patient requests a less strong medication, a lower dose, or a less intrusive route of administration when the lesser drug, dose and route have been ordered for the patient. This patient request must be documented in the MAR., Post-op $ Given 03/23/2022 9:37 AM CDT 600 mg lactated ringers infusion at 20 mL/hr, Intravenous, PRE-OP CONTINUOUS, Starting on Wed03/23/22 at 0545, Until Wed03/23/22 at 1142, Pre-op $ New Bag/Syringe 03/23/2022 6:12 AM CDT 20 mL/hr lactated ringers infusion at 125 mL/hr, Intravenous, CONTINUOUS, Starting on Wed03/23/22 at 0830, Until Wed03/23/22 at 1142, PACU lidocaine PF (Xylocaine MPF) 1 % injection 0.2 mL 0.2 mL, Infiltration, PRE-OP MULTIPLE, 3 doses, Starting on Wed03/23/22 at 0537, Until Wed03/23/22 at 1142, May be used (0.2 ml locally to anesthetize prior to insertion)., Pre-op $ Given 03/23/2022 6:13 AM CDT 0.2 mL naloxone (Narcan) injection 0.04 mg 0.04 mg, Intravenous, POST-OP MULTIPLE, Starting on Wed03/23/22 at 0826, Until Wed03/23/22 at 1142, Notify physician immediately, and mix 0.4 mg Naloxone in 9 mL Normal Saline for slow IV push. Administer dilute Naloxone solution IV very slowly (1 mL over 30 seconds) while observing the patient response and titrating to effect. If no response, call Rapid Response, continue IV Naloxone at the same rate up to a total of 0.8 mg of diluted Naloxone., PACU ondansetron (Zofran) injection 4 mg 4 mg, Intravenous, ONCE PRN, Nausea/Vomiting, 1 dose, Starting on Wed03/23/22 at 0826, Until Wed03/23/22 at 1142, First choice, PACU scopolamine (Transderm-Scop) 1 patch 1 patch, Administer over 72 Hours, ONCE, 1 dose, On Wed03/23/22 at 0545, For patients less than 60 years old, without glaucoma, and with a positive history of Post Operative Nausea and Vomiting. Each patch contains 1.5 mg scopolamine base and is formulated to deliver 1 mg of scopolamine over 72 hours. $ Applied 03/23/2022 6:09 AM CDT 1 patch Behind Right Ear scopolamine patch placement confirmation Transdermal, 2 TIMES DAILY, 7 doses, First dose on Wed03/23/22 at 0900, Last dose on [place] 03/26/22 at 0900, Patient has a patch to be confirmed on transition to inpatient and 2 times daily., Pre-op documented in this encounter Active and Recently Administered Medications Times are shown in CDT. Scheduled Medication Order 03/21/2022 03/22/2022 03/23/2022 acetaminophen (Tylenol) tablet 1,000 mg (COMPLETED) 1,000 mg, Oral, ONCE, 1 dose, On Wed03/23/22 at 0545, Patient preference for lesser PRN pain meds may be honored when the patient requests a less strong medication, a lower dose, or a less intrusive route of administration when the lesser drug, dose and route have been ordered for the patient. This patient request must be documented in the MAR., Pre-op 06 ($ Given - Prov ider: Dorcas Sultana RN) ciprofloxacin (Cipro) 400 mg in 200 mL IVPB (COMPLETED) 400 mg, at 200 mL/hr, Intravenous, EVERY 12 HOURS, 1 dose, First dose on Wed03/23/22 at 0730, Indication for anti-infective therapy: Surgical prophylaxis 0742 ($ Given - Prov ider: Wilfred Delgado, [employer]GER) ibuprofen (Motrin) tablet 600 mg (COMPLETED) 600 mg, Oral, POST-OP ONCE, 1 dose, On Wed03/23/22 at 0945, Maximum allowable amount = 3200 mg / 24 hours. Patient preference for lesser PRN pain meds may be honored when the patient requests a less strong medication, a lower dose, or a less intrusive route of administration when the lesser drug, dose and route have been ordered for the patient. This patient request must be documented in the MAR., Post-op 09 ($ Given - Prov ider: Nicole Frey RN) lidocaine PF (Xylocaine MPF) 1 % injection 0.2 mL 0.2 mL, Infiltration, PRE-OP MULTIPLE, 3 doses, Starting on Wed03/23/22 at 0537, Until Wed03/23/22 at 1142, May be used (0.2 ml locally to anesthetize prior to insertion)., Pre-op 06 ($ Given - Prov ider: Dorcas Sultana RN) naloxone (Narcan) injection 0.04 mg 0.04 mg, Intravenous, POST-OP MULTIPLE, Starting on Wed03/23/22 at 0826, Until Wed03/23/22 at 1142, Notify physician immediately, and mix 0.4 mg Naloxone in 9 mL Normal Saline for slow IV push. Administer dilute Naloxone solution IV very slowly (1 mL over 30 seconds) while observing the patient response and titrating to effect. If no response, call Rapid Response, continue IV Naloxone at the same rate up to a total of 0.8 mg of diluted Naloxone., PACU scopolamine (Transderm-Scop) 1 patch(Linked Group 1) 1 patch, Administer over 72 Hours, ONCE, 1 dose, On Wed03/23/22 at 0545, For patients less than 60 years old, without glaucoma, and with a positive history of Post Operative Nausea and Vomiting. Each patch contains 1.5 mg scopolamine base and is formulated to deliver 1 mg of scopolamine over 72 hours. 0609 ($ Applied - Pr ovider: Dorcas Sultana RN)1042 (Due: Removed - Provider: Generic, Auto Release - Comment: Time automatically adjusted from order being discontinued) scopolamine patch placement confirmation(Linked Group 1) Transdermal, 2 TIMES DAILY, 7 doses, First dose on 03/23/22 at 0900, Last dose on [place] 03/26/22 at 0900, Patient has a patch to be confirmed on transition to inpatient and 2 times daily., Pre-op 0900 (Due) Continuous Medication Order 03/21/2022 03/22/2022 03/23/2022 lactated ringers infusion at 20 mL/hr, Intravenous, PRE-OP CONTINUOUS, Starting on Wed03/23/22 at 0545, Until Wed03/23/22 at 1142, Pre-op 0612 ($ New Bag/Syri nge - Provider: Dorcas Sultana RN)0822 (Anesthesia Volume Adjustment - Provider: Wilfred Delgado APRN-[employer]GER) lactated ringers infusion at 125 mL/hr, Intravenous, CONTINUOUS, Starting on Wed03/23/22 at 0830, Until Wed03/23/22 at 1142, PACU 0830 (Due) PRN Medication Order 03/21/2022 03/22/2022 03/23/2022 0.9% nacl irrigation solution (CANCELED) PRN, Starting on Wed03/23/22 at 0834, Until Wed03/23/22 at 0835, Intra-op 0834 ($ Given - Prov ider: Jose Oliver MD) diphenhydrAMINE (Benadryl) injection 25 mg 25 mg, Intravenous, ONCE PRN, Nausea/Vomiting, 1 dose, Starting on Wed03/23/22 at 0826, Until Wed03/23/22 at 1142, Second choice, use if first choice was ineffective., PACU fentaNYL (PF) (Sublimaze) injection 50 mcg 50 mcg, Intravenous, EVERY 3 MIN PRN, Mild Pain, 4 doses, Starting on Wed03/23/22 at 0826, Until Wed03/23/22 at 1142, Maximum total of 4 doses. If patient [...] must be documented in the MAR., PACU 0842 ($ Given - Prov ider: Roxie Carpenter RN) HYDROmorphone (Dilaudid) injection 0.5 mg 0.5 mg, Intravenous, EVERY 5 MIN PRN, Moderate Pain, 4 doses, Starting on Wed03/23/22 at 0826, Until Wed03/23/22 at 1142, Maximum total of 4 doses If patient [...] injection 0.5 mg 0.5 mg, Intravenous, EVERY 5 MIN PRN, Severe Pain, 4 doses, Starting on Wed03/23/22 at 0826, Until Wed03/23/22 at 1142, Maximum total of 4 doses If patient [...] must be documented in the MAR., PACU ondansetron (Zofran) injection 4 mg 4 mg, Intravenous, ONCE PRN, Nausea/Vomiting, 1 dose, Starting on Wed03/23/22 at 0826, Until Wed03/23/22 at 1142, First choice, PACU Linked Groups Order Group 1: scopolamine (Transderm-Scop) 1 patchJump to med 1 patch, Administer over 72 Hours, ONCE, 1 dose, On Wed03/23/22 at 0545, For patients less than 60 years old, without glaucoma, and with a positive history of Post Operative Nausea and Vomiting. Each patch contains 1.5 mg scopolamine base and is formulated to deliver 1 mg of scopolamine over 72 hours. And scopolamine patch placement confirmationJump to med Transdermal, 2 TIMES DAILY, 7 doses, First dose on Wed03/23/22 at 0900, Last dose on [place] 03/26/22 at 0900, Patient has a patch to be confirmed on transition to inpatient and 2 times daily., Pre-op documented in this encounter Care Teams Ux Lead Relationship Specialty Start Date End Date Neva Holden MD [address] [place] [phone] PCP - General 05/06/20 05/25/23 documented as of this encounter
--- OUTSIDE RECORDS SUMMARY | 2024-11-12 04:43 | XMS_ITS | Encounter Summary ---
Author Organization [facility] Address [address] [facility] [place] [address] Care Team Providers Care Animal Keeper Head Name Role Phone Neva Holden MD Primary Care Provider [phone] Reason for Visit * Auth/Cert (Routine) Specialty Diagnoses / Procedures Referred By Contac t Referred To Contact Diagnoses Malignant neoplasm of urinary bladder, unspecified site (HCC) Malignant neoplasm of urinary bladder, unspecified site Procedures TRANSURETHRAL RESECTION BLADDER TUMOR (TURBT) Referral ID Status Reason Start Date Expiration Date Visits Re quested Visits Authorized [id number] 1 1 Encounter Details Date Type Department Care Team (Latest Contact Info) Description 01/18/2023 5:13 AM COPRA SAMPLER - 01/18/2023 12:11 PM [facility] Hospital Encounter [facility] [address] [place] [phone] Jose Oliver MD [address] [facility] [address] DIV [place] [phone] Surgery General Discharge Disposition: Home or Self [...] Sign Reading Time Taken Comments Blood Pressure 139/74 01/18/2023 11:39 AM COPRA SAMPLER Pulse 78 01/18/2023 11:39 AM COPRA SAMPLER Temperature 36.5 ??C (97.7 ??F) 01/18/2023 11:[address] Respiratory Rate 11 01/18/2023 11:39 AM COPRA SAMPLER Oxygen Saturation 93% 01/18/2023 11:39 AM COPRA SAMPLER Inhaled Oxygen Concentration - - Weight 90.4 kg (199 lb 6.4 oz) 01/18/2023 7:57 A M COPRA SAMPLER Height 160 cm (5' 3 ) 01/18/2023 7:57 AM COPRA SAMPLER Body Mass Index 35.32 01/18/2023 7:57 AM COPRA SAMPLER documented in this encounter Functional Status Functional [...] Kenan Argueta MD - 01/18/2023 10:01 AM COPRA SAMPLER Images from the original note were not included. [facility] Urology You had a [...] prescribed narcotic pain medication such as Oxycodone, [place]ms[place], or Tramadol. This should be taken as needed for severe pain only. Do not drink alcohol, drive, or operate heavy machinery while taking this type of medication. If the narcotic is Symsonia, please understand that Symsonia has Tyelonol in it. If you are [...] surgery or the recovery process, please contact [facility] Urology [phone] on weekdays during regular business hours. If you have an urgent or emergent question on a weekend or after regular business hours, please contact [facility] at [phone] and ask for the provider communications systems engineer for Urology. In addition, please contact us [...] to the touch, or non-clear, foul-smelling drainage) A SAMPLER documented in this encounter Medications at Time of Discharge Medication Sig Dispensed Refills Start Date End Date albuterol (PROVENTIL;VENTOLIN) (2.5 MG/3ML) 0.083% nebulizer solution Inhale 2.5 (two and one-half) mg by mouth every 4 hours as needed for Shortness of Breath 75 mL 11/03/2021 albuterol HFA (PROAIR HFA) 108 (90 Base) MCG/ACT inhalerIndications:Sta ge 2 moderate COPD by GOLD classification ([facility]) Inhale 2 (two) puffs by mouth [...] tablet 4 12/08/2021 vitamin D, ergocalciferol, (DRISDOL) 08548 UNITS capsule Take 1 (one) capsule by [...] ge 2 moderate COPD by GOLD classification ([facility]) INHALE 2 PUFFS BY MOUTH TWICE [...] 11/22/2023 oxyCODONE-acetaminophe n (Percocet) 5-325 MG tabletIndications:Anastasiya gnant neoplasm of urinary bladder, unspecified site ([facility]) Take 1 (one) tablet by mouth every 6 hours as needed for Pain 10 tablet 01/18/2023 10/22/2023 pantoprazole EC (PROTONIX) 40 MG tabletIndications:need follow up visit for further [phone] option 1 Take 1 (one) tablet by mouth once daily Reasons: need follow up visit for further [phone] option 1 90 tablet 3 01/23/2022 06/15/2024 [...] questions, please contact the outpatient pharmacy at x0. Radha Curiel CPhT [facility] at [address], [address] Floor [place], [place] [address] Hours of Operation Wednesday - Wednesday: 8:00am to 6:00pm Wednesday: 9:00am to 1:00pm Epic: [facility] *Ensure the patient and clinic's nearby ZIP codes box is unchecked* * [place] Knutson, MEI-SONNY - 01/18/2023 7:56 AM CST Blue light Cystoscopy: -Pt emptied Bladder prior to coming into Pre-post room - Cysview solution 100mg (hexaminolevulinate HCL) instilled into bladder via catheter. Pt tolerated. A SAMPLER documented in this encounter H&P Notes * [...] List Diagnosis Date Noted ??? CAD in [place] artery 10/24/2020 Priority: Not Prioritized ??? PAD (peripheral artery disease) ([facility]) Priority: Not Prioritized ??? MDD (recurrent major depressive disorder) in remission ([facility]) 08/05/2018 Priority: Not Prioritized ??? GIOVANNY (generalized anxiety disorder) 06/09/2017 ICD-10 update ??? Obesity 01/09/2017 ??? Nocturia 01/09/2017 ??? Personal history of transient ischemic attack (TIA), and cerebral infarction without residual deficits 01/09/2017 reported ??? Occlusion and stenosis of bilateral carotid arteries 01/09/2017 ??? Chronic pain syndrome 01/09/2017 ??? Type 2 diabetes mellitus with diabetic polyneuropathy ([facility]/HCC) 01/09/2017 EMG/[facility] ??? Insomnia due to medical condition 01/09/2017 ??? Gastro-esophageal reflux disease without esophagitis 01/09/2017 ??? Primary osteoarthritis of one knee 01/09/2017 ??? Other asthma 01/09/2017 ??? Sleep related leg cramps 01/09/2017 ??? Other forms of angina pectoris ([facility]/HCC) 01/09/2017 ??? Essential (primary) hypertension 01/09/2017 ??? Hypersomnia due to medical condition 01/09/2017 ??? Chronic obstructive pulmonary disease ([facility]/HCC) 01/09/2017 ??? Personal history of traumatic brain injury 01/09/2017 Reports brief LOC. Age 17. ??? Restless legs syndrome 01/01/2017 ??? Obstructive sleep apnea 01/01/2017 ??? Cervicalgia 04/28/2015 ??? Other chronic pain 04/28/2015 Past Medical History: Diagnosis Date ??? Anxiety ??? Asthma ??? Atherosclerosis of coronary artery ??? Bladder cancer ([facility]/HCC) ??? Chest pain pain 10/23 ??? Chronic obstructive pulmonary disease (COPD) ([facility]/HCC) ??? Depression ??? Essential hypertension ??? GERD [...] 2014 ??? HX TUBAL LIGATION 1989 ??? [place] FOOT/TOES SURGERY PROC UNLISTED ??? 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 Lab results smartLinks are not currently [...] Argueta MD Urology Resident 01/18/2023 3:20 AM A SAMPLER documented in this encounter OR Notes * Brief Op Note - Kenan Argueta MD - 01/18/2023 9:12 AM CST Brief Op Note Procedure: Blue light cystoscopy and transurethral resection of bladder tumor Patient Name: Arnold Cruz Date of Service: 01/18/2023 Pre-Op Diagnosis: Malignant neoplasm of urinary bladder, unspecified site Post-Op Diagnosis: same Surgeon(s) and Role: * Jose Oliver MD - Primary * Kenan Argueta MD - Resident - Assisting Telephonic Case Manager(s): none Anesthesia Type: general LMA Complications: none [...] implants in log * Kenan Argueta MD A SAMPLER * Operative - Jose Oliver MD - [...] fashion. A timeout was then performed. A 26-Malay resectoscope was then used to enter her [...] discharge today. MD Jose Calderon MD JO/charu .[id number] .[id number] Doc ID: [id number] Voice Job ID: [id number] I was present for the entire procedure. Jose Oliver MD 01/19/2023 9:29 AM A SAMPLER documented in this encounter Plan of Treatment Upcoming Encounters Date Type Department Care Team (Late st Contact Info) Description 01/19/2025 11:30 AM COPRA SAMPLER Procedure visit [facility] - Urology [address] [place] [address] [address] [place] [address] Jose Oliver MD [facility] [place] [phone] documented as of this encounter Goals Goal [...] POINT OF CARE Routine 01/18/2023 11:53 AM COPRA SAMPLER GLUCOSE - POINT OF CARE Routine 01/18/2023 10:19 AM COPRA SAMPLER PATHOLOGY TISSUE Routine 01/18/2023 9:18 AM COPRA SAMPLER Malignant neoplasm of urinary bladder, unspecified site (HCC) TRANSURETHRAL RESECTION BLADDER TUMOR (TURBT) 01/18/2023 9:12 AM COPRA SAMPLER Malignant neoplasm of urinary bladder, unspecified site (HCC) Special Needs Laser [place] stone confirmed ? Blue light laser / Reviewed 01/13 GLUCOSE - POINT OF CARE Routine 01/18/2023 8:13 AM COPRA SAMPLER documented in this encounter Results * (ABNORMAL) GLUCOSE - POINT OF CARE (01/18/2023 11:53 AM COPRA SAMPLER) Glucose WB/POC 204(H) 70 - 115 mg/dL 01/18/2023 11:54 AM COPRA SAMPLER [facility] Specimen Type Cap Fingerstick 2022 11:54 AM COPRA SAMPLER [facility] Blood BLOOD SPECIMEN / Unknown 01/18/2023 11:53 AM COPRA SAMPLER 01/18/2023 11:54 AM COPRA SAMPLER Jose Oliver MD LAB - POINT OF CAR E ORDERABLES [facility] [address] [place] [address], [facility] [phone] * (ABNORMAL) GLUCOSE - POINT OF CARE (01/18/2023 10:19 AM COPRA SAMPLER) Glucose WB/POC 121(H) 70 - 115 mg/dL 01/18/2023 11:55 AM COPRA SAMPLER [facility] Specimen Type Cap Fingerstick 2022 11:55 AM COPRA SAMPLER [facility] Blood BLOOD SPECIMEN / Unknown 01/18/2023 10:19 AM COPRA SAMPLER 01/18/2023 11:55 AM COPRA SAMPLER Jose Oliver MD LAB - POINT OF CAR E ORDERABLES Performing Organization Address [facility]/State/ZIP Co de Phone Number [address] [address], [facility] [phone] * PATHOLOGY TISSUE (01/18/2023 9:18 AM COPRA SAMPLER) Case Report Surgical Pathology Report ? Case: [id number] ? Authorizing Provider: ??Jose Oliver MD ?Collected: ? 01/18/2023 09:18 AM ? Ordering Location: ? [facility] ?Received: ?01/18/2023 10:11 AM ? Pathologist: ? Nicole Glaser MD ? Specimens: ?? A) - Bladder Biopsy, Left bladder neck ? B) - Bladder Biopsy Wall, Right posterior wall ? C) - Bladder Biopsy Dome, Left dome ? 01/21/2023 7:59 AM [facility] Final Diagnosis Bladder, left neck, [...] - Muscular propria present 01/21/2023 7:59 AM [facility] Microscopic Description and Comment Sections of all biopsies demonstrate largely denuded urothelium. In parts A and C, there is focal cytologic atypia of the urothelium with nuclear enlargement but CK20 immunostain does not show full thickness staining in the areas of histologic concern to support a diagnosis of carcinoma in situ. 01/21/2023 7:59 AM [facility] PATH[facility] Clinical History The patient is a 62-year-old woman with a history of high-grade T1 bladder carcinoma. Surveillance cystoscopy revealed shaggy papillary changes with erythema along the right dome and erythema around the left ureteral orifice. 01/21/2023 7:59 AM [facility] PATH[facility] Gross Description The requisition and [...] in cassette C1. DF 01/21/2023 7:59 AM [facility] Disclaimer The performance characteristics of [...] the attending (teaching) pathologist. 01/21/2023 7:59 AM COPRA SAMPLER [facility] PATHOLOGY LAB Embedded Images 01/21/2023 7:59 AM COPRA SAMPLER [facility] PATHOLOGY LAB Biopsy, Excision URINARY BLADDER BIOPSY SPECIMEN / Unknown 01/18/2023 9:18 AM COPRA SAMPLER 01/18/2023 10:11 AM COPRA SAMPLER Comment:Pre-op diagnosis: Malignant neoplasm of urinary bladder, unspecified site Biopsy, Excision URINARY BLADDER BIOPSY SPECIMEN / Unknown 01/18/2023 9:25 AM COPRA SAMPLER 01/18/2023 10:11 AM COPRA SAMPLER Comment:Pre-op diagnosis: Malignant neoplasm of urinary bladder, unspecified site Biopsy, Excision URINARY BLADDER BIOPSY SPECIMEN / Unknown 01/18/2023 9:38 AM COPRA SAMPLER 01/18/2023 10:11 AM COPRA SAMPLER Comment:Pre-op diagnosis: Malignant neoplasm of urinary bladder, unspecified site Jose Oliver MD LAB - PATHOLOGY/CY TOLOGY ORDERABLES Performing Organization Address City/State/[facility] de Phone Number [facility] PATHOLOGY LAB [address] [phone] * (ABNORMAL) GLUCOSE - POINT OF CARE (01/18/2023 8:13 AM COPRA SAMPLER) Glucose WB/POC 170(H) 70 - 115 mg/dL 01/18/2023 8:15 AM [facility] Specimen Type Venous 01/18/2023 8:15 AM [facility] Blood BLOOD SPECIMEN / Unknown 01/18/2023 8:13 AM COPRA SAMPLER 01/18/2023 8:14 AM COPRA SAMPLER Jose Oliver MD LAB - POINT OF CAR E ORDERABLES [address] [address], [facility] [phone] documented in this encounter Visit Diagnoses Diagnosis [...] 1013, PACU $ Given 01/18/2023 10:13 AM COPRA SAMPLER 2.5 mg diphenhydrAMINE (Benadryl) injection 25 mg [...] MAR., PACU $ Given 01/18/2023 10:30 AM COPRA SAMPLER 25 mcg $ Given 01/18/2023 10:20 AM COPRA SAMPLER 25 mcg fentaNYL (PF) (Sublimaze) injection 50 [...] preparation, Pre-op $ Given 01/18/2023 8:10 AM COPRA SAMPLER 100 mg hydrALAZINE (Apresoline) injection 5 mg [...] 1014, PACU $ Given 01/18/2023 10:14 AM COPRA SAMPLER 0.5 mg labetalol (Normodyne; Trandate) injection 5 [...] Pre-op $ New Bag/Syringe 01/18/2023 8:12 AM COPRA SAMPLER 75 mL/hr lactated ringers infusion at 125 [...] the MAR. $ Given 01/18/2023 11:19 AM COPRA SAMPLER 1 tablet prochlorperazine (Compazine) injection 10 mg 10 mg, Intravenous, ONCE PRN, Nausea/Vomiting, 1 dose, Starting on Wed01/18/23 at 0959, Until Wed01/18/23 at 1311, First choice, PACU documented in this encounter Active and Recently Administered Medications Times are shown in COPRA SAMPLER. Scheduled Medication Order 01/16/2023 01/17/2023 01/18/2023 0.9% [...] Pre-op 0900 ($ Given - Prov ider: Jayy Zheng, Flavia Asst) diphenhydrAMINE (Benadryl) injection 25 mg 25 [...] Jacquelin Guillen RN - Comment: given by FIELD SCOUT) hydrALAZINE (Apresoline) injection 5 mg 5 mg, [...] PACU documented in this encounter Care Teams Animal Keeper Head Relationship Specialty Start Date End Date Neva Holden MD [address] [place] [phone] PCP - General 05/06/20 05/25/23 documented as of this encounter
--- OUTSIDE RECORDS SUMMARY | 2024-11-12 04:43 | XMS_ITS | Encounter Summary ---
Author Organization [facility] Address [address] [facility] [place] [address] Care Team Providers Care Plunger Machine Operator Name Role Phone Neva Holden MD Primary Care Provider [phone] Deisi Andrews MD Primary Care Provider [phone] Matti Balderas MD Primary Care Provider [phone] Encounter Details Date Type Department Care Team (Late st Contact Info) Description 02/13/2022 Lab Requisition [facility] Care Pathology Lab [address] [place] [address] Jose Oliver MD [address] [place] [phone] Illness, unspecified Social History Tobacco Use Types [...] (Late Contact Info) Description 01/19/2025 11:30 AM REMOTE CONTROL MIRROR INSTALLER Procedure visit [facility] - Urology [address] [place] [address] [address] [place] [address] Jose Oliver MD [address] [place] [address] documented as of this encounter Goals Goal [...] as of this encounter Visit Diagnoses Diagnosis Illness, unspecified documented in this encounter Care Teams Plunger Machine Operator Relationship Specialty Start Date End Date Neva Holden MD [address] [place] [phone] PCP - General 05/06/20 05/25/23 Deisi Andrews MD [address] [place] [address] [place] [phone] PCP - General Family Medicine 05/26/23 10/26/24 Matti Balderas MD [address] [place] [phone] PCP - General Family Medicine 10/27/24 documented as of this encounter
--- OUTSIDE RECORDS SUMMARY | 2024-11-12 04:43 | XMS_ITS | Encounter Summary ---
Author Organization [facility] Address [address] [place] [address] Care Team Providers Care Answering Service Operator Name Role Phone Neva Holden MD Primary Care Provider [phone] Reason for Visit * Reason Onset Date Comments Anticoagulation 01/16/2022 Encounter Details Date Type Department Care Team (Late st Contact Info) Description 01/16/2022 Telephone [facility] [address] [place] [address] Jose A tejada MD [address] [address] Anticoagulation Social History Tobacco Use Types Packs/Day Years [...] COVID-19? No / Unsure 12/31/2021 8:43 AM OCEAN FREIGHT MANAGER documented as of this encounter Miscellaneous Notes * Telephone Encounter - Abdi Peck - 01/16/2022 1:25 PM CST Rody calling to let us know she is needing to have bladder surgery soon to remove a tumor and asking Dr. Clark if she should stop taking her Plavix per doing the surgery. N FREIGHT MANAGER documented in this encounter Plan of Treatment Upcoming Encounters Date Type Department Care Team (Late st Contact Info) Description 01/19/2025 11:30 AM OCEAN FREIGHT MANAGER Procedure visit [facility] Urology [address] [place] [address] [address] [place] [address] Jose Oliver MD [address] [place] [phone] documented as of this encounter Goals Goal [...] on filedocumented in this encounter Care Teams Answering Service Operator Relationship Specialty Start Date End Date Neva Holden MD [address] [place] [phone] PCP - General 05/06/20 05/25/23 documented as of this encounter
--- OUTSIDE RECORDS SUMMARY | 2024-11-12 04:43 | XMS_ITS | Encounter Summary ---
Author Organization [facility] Address [address] [place] [address] Care Team Providers Care Heel Nailing Machine Operator Name Role Phone Neva Holden MD Primary Care Provider [phone] Reason for Visit * Auth/Cert Specialty Diagnoses / Procedures Referred By Nacho t Referred To Contact Diagnoses Diagnosis unknown Diagnosis unknown [R69] Procedures TRANSURETHRAL RESECTION BLADDER TUMOR (TURBT) URETEROSCOPY (FLEXIBLE OR RIGID) Referral ID Status Reason Start Date Expiration Date Visits Re quested Visits Authorized [id number] 1 1 Encounter Details Date Type Department Care Team (Latest Contact Info) Description 03/23/2022 5:15 AM CDT - 03/23/2022 10:42 AM CDT Hospital Encounter [facility] [address] [place] [address] Jose Oliver MD [address] [place] [phone] Surgery General Discharge Disposition: Home or Self [...] Reading Time Taken Comments Blood Pressure 104/68 03/23/2022 9:39 AM CDT Pulse 87 03/23/2022 9:39 AM CDT Temperature 36.3 ??C (97.4 ??F) 03/23/2022 9:22 AM CD T Respiratory Rate 18 03/23/2022 9:39 AM CDT Oxygen Saturation 93% 03/23/2022 9:39 AM CDT Inhaled Oxygen Concentration - - [...] surgery or the recovery process, please contact [facility] Urology at [phone] during regular business hours. On weekends or in the evening, please contact [facility] at [phone] and ask for whoever is connie scratcher for Dr. Oliver/ Urology. In addition, please [...] moderate COPD by GOLD classification ([facility]) Inhale 2 (two) puffs by mouth [...] tablet 4 12/08/2021 vitamin D, ergocalciferol, (DRISDOL) 22547 UNITS capsule Take 1 (one) capsule by [...] moderate COPD by GOLD classification ([facility]) Inhale 2 (two) puffs by mouth [...] Disorder, Panic Disorder 45 tablet 12/31/2021 03/26/2022 eqgvgqfy-vxjdtfiet-swl ameth (MAXITROL) ophthalmic suspension INSTILL 1 DROP INTO AFFECTED EYE(S) EVERY 3 TO 4 HOURS WHILE AWAKE 01/06/2022 01/11/2023 zzwphcxq-tqqtizzfd-ne (CORTISPORIN) 3.5-58283-3 otic suspension SHAKE LIQUID AND INSTILL 4 DROPS TO AFFECTED EAR THREE TIMES DAILY 01/06/2022 01/11/2023 nicotine (NICODERM CQ) 21 MG/24HR patch APPLY 1 PATCH TOPICALLY ONCE DAILY 01/16/2022 10/22/2023 ondansetron (ZOFRAN) 8 MG tablet 1 (one) tablet every 6 hours as needed 11/22/2023 pantoprazole EC (PROTONIX) 40 MG tabletIndications:need follow up visit for further [phone] option 1 Take 1 (one) tablet by mouth once daily Reasons: need follow up visit for further [phone] option 1 90 tablet 3 01/23/2022 06/15/2024 [...] pT1 vs pT2. Patient was referred to [facility] for further evaluation/management. Internal review [...] 2014 ??? HX TUBAL LIGATION 1989 ??? DE FOOT/TOES SURGERY PROC UNLISTED ??? Tympanostomy 2013 [...] EC (ECOTRIN) 325 MG tablet 12/15/15 Yes ProviderRamírez MD budesonide-formoterol (SYMBICORT) 160-4.5 MCG/ACT inhaler Inhale 2 (two) puffs by mouth 2 times daily 01/05/22 Yes Billy Don MD cetirizine (ZYRTEC) 10 MG tablet cetirizine 10 mg tablet TAKE 1 TABLET BY MOUTH ONCE DAILY NEEDED Yes ProviderRamírez MD clopidogrel (PLAVIX) 75 MG tablet Take [...] MD ibuprofen (MOTRIN) 600 MG tablet 02/09/22 ProviderRamírez MD isosorbide mononitrate CR 24hr (IMDUR) 60 [...] Disorder 12/31/21 03/31/22 Yes Kathleen Stevenson MD bwekgpgs-byheeurzg-iizqqsni (MAXITROL) ophthalmic suspension INSTILL 1 DROP INTO AFFECTED EYE(S) EVERY 3 TO 4 HOURS WHILE AWAKE 01/06/22 Ramírez Baeza MD ptozvyox-ufqmuyqyq-oq (CORTISPORIN) 3.5-30986-6 otic suspension SHAKE LIQUID AND INSTILL 4 [...] Reasons: need follow up visit for further [phone] option 1 01/23/22 Yes Sebastian Lombardi MD polyethylene glycol 3350 (MIRALAX) 17 GM/SCOOP powder Take 17 (seventeen) g by mouth once daily Patient not taking: No sig reported 09/01/21 Sebastian Lombardi MD potassium chloride ER (KLOR-CON) 10 MEQ tablet Take 10 mEq by mouth once daily 02/06/22 Yes Ramírez Baeza MD tiotropium (SPIRIVA HANDIHALER) 18 MCG inhalation capsule Inhale 1 (one) capsule by mouth once daily 11/03/21 Yes Bora Ferreira MD vitamin D, ergocalciferol, (DRISDOL) 98733 UNITS capsule Take 50,000 Units by mouth [...] Role: * Jose Oliver MD - Primary Harness Rigger(s): Kofi Martin MD Anesthesia Type: general ETT [...] Implant(s): * No implants in log * Kofi Martin MD Urology PGY4 03/23/2022 8:40 AM [...] DRAINS: None COMPLICATIONS: None INDICATIONS FOR PROCEDURE: oRdy Zaidi is a 61 year oldfemale with bladder cancer diagnosed on TURBT of a 2-3 cm mass covering the left trigone, lateral wall and bladder neck in January [address] Santa. OSH pathology showed high grade pT1 vs pT2. Patient was referred to [facility] for further evaluation/management. Internal review of pathology slides determined patient had high grade pT1 urothelial cell carcinoma. However there also appears to be left distal ureteral involvement with obstruction requiring stent. The patient presents today for operative intervention. After reviewing the various risks benefits and alternatives, patient provided informed consent [facility] the [facility]. DESCRIPTION OF PROCEDURE: Patient was brought to [...] st Contact Info) Description 01/19/2025 11:30 AM BAG TURNER Procedure visit [facility] - Urology [address] [place] [address] [address] [place] [address] Jose Oliver MD [facility] [place] [address] documented as of this encounter Goals Goal [...] Routine 03/23/2022 8:11 AM CDT Diagnosis unknown DE CYSTO/URETERO/PYELOSCO PY, DX 03/23/2022 6:40 AM CDT [...] POINT OF CARE (03/23/2022 8:38 AM CDT) Glucose WB/POC 176(H) 70 - 106 mg/dL 03/23/2022 8:48 AM CDT [facility] Specimen Type Cap Fingerstick 2021 8:48 AM CDT [facility] Blood BLOOD SPECIMEN / Unknown 03/23/2022 8:38 AM CDT 03/23/2022 8:48 AM CDT Jose Oliver MD LAB - POINT OF CAR E ORDERABLES Performing Organization Address City/State/[facility] Co de Phone Number [facility] [address] [place] [address] * PATHOLOGY TISSUE EXAM (STL) (03/23/2022 8:11 AM CDT) Case Report Surgical Pathology Report ? Case: [id number] ? Authorizing Provider: ??Jose Oliver MD ?Collected: ? 03/23/2022 08:11 AM ? Ordering Location: ? [facility] ? Received: ?03/23/2022 08:51 AM ? Pathologist: ? Kenan Maria MD ? Specimen: ?Bladder Mass, BLADDER TUMOR ? 03/24/2022 4:30 PM CDT [facility] Final Diagnosis Urinary bladder, transurethral resection of bladder tumor: 1. Negative for malignancy 2. Acute and chronic inflammation, fibrosis, and dystrophic calcification consistent with biopsy site changes 3. Detrusor muscle present, negative for tumor invasion 03/24/2022 4:30 PM T [facility] Clinical History Bladder mass 03/24/2022 4:30 PM CDT [facility] Gross Description The requisition and specimen are identified with patient's name and date of . Received in formalin, specimen A, bladder tumor aggregate of hawthorne-pink hawthorne soft tissues, 1.5 x 1.5 x 0.3 cm. Entirely submitted in cassette A1. LJ 03/24/2022 4:30 PM CDT [facility] Microscopic Description Immunostain for pancytokeratin (control appropriate) is negative for tumor. Residual surface urothelium has complex care nurse maturation. 03/24/2022 4:30 PM CDT [facility] Disclaimer All histochemical and/or immunohistochemical results are interpreted with controls that demonstrate appropriate staining reactions before reporting results. Note on use of immunocytochemistry reagents: This test was developed and its performance characteristic determined by [facility], Department of Laboratory Medicine. It has not [...] interpreted with caution. 03/24/2022 4:30 PM CDT [facility] Embedded Images 03/24/2022 4:30 PM CDT [facility] Pathology/Cytolo gy MASS OF URINARY BLADDER / Unknown 03/23/2022 8:11 AM CDT 03/23/2022 8:51 AM CDT Comment:Pre-op diagnosis: Diagnosis unknown [R69] Jose Oliver MD LAB - PATHOLOGY/CY TOLOGY ORDERABLES Performing Organization Address [facility] Co de Phone Number [facility] [address] [place] [phone] * (ABNORMAL) GLUCOSE - POINT OF CARE (03/23/2022 6:14 AM CDT) Glucose WB/POC 194(H) 70 - 106 mg/dL 03/23/2022 6:20 AM CDT [facility] Specimen Type Venous 03/23/2022 6:20 AM CDT [facility] Blood BLOOD SPECIMEN / Unknown 03/23/2022 6:14 AM CDT 03/23/2022 6:20 AM CDT Jose Oliver MD LAB - POINT OF CAR E ORDERABLES Performing Organization Address [facility] de Phone Number [facility] [address] [place] [phone] documented in this encounter Visit Diagnoses Diagnosis Pain Generalized pain Diagnosis unknown Other unknown and unspecified cause of morbidity or mortality documented in this encounter Administered Medications Inactive Administered Medications - up to 3 most recent administrations Medication Order MAR Action Action Date Dose Rate Site acetaminophen (Tylenol) tablet 1,000 mg 1,000 mg, [...] must be documented in the MAR., Pre-op 0609 ($ Given - Prov ider: Dorcas Sultana RN) ciprofloxacin (Cipro) 400 mg in 200 mL IVPB (COMPLETED) 400 mg, at 200 mL/hr, Intravenous, EVERY 12 HOURS, 1 dose, First dose on Wed03/23/22 at 0730, Indication for anti-infective therapy: Surgical prophylaxis 0742 ($ Given - Prov ider: Wilfred Delgado, INSURANCE OFFICE SUPERVISOR-CUSTOMER PROGRAM MANAGER) ibuprofen (Motrin) tablet 600 mg (COMPLETED) [...] must be documented in the MAR., Post-op 0937 ($ Given - Prov ider: Nicole Frey RN) lidocaine PF (Xylocaine MPF) 1 % injection 0.2 mL 0.2 mL, Infiltration, PRE-OP MULTIPLE, 3 doses, Starting on Wed03/23/22 at 0537, Until Wed03/23/22 at 1142, May be used (0.2 ml locally to anesthetize prior to insertion)., Pre-op 0613 ($ Given - Prov ider: Dorcas Sultana [...] (Anesthesia Volume Adjustment - Provider: Wilfred Delgado APRN-CUSTOMER PROGRAM MANAGER) lactated ringers infusion at 125 mL/hr, [...] Pre-op documented in this encounter Care Teams Heel Nailing Machine Operator Relationship Specialty Start Date End Date Neva Holden MD [address] [place] [phone] PCP - General 05/06/20 05/25/23 documented as of this encounter
--- OUTSIDE RECORDS SUMMARY | 2024-11-12 04:43 | XMS_ITS | Encounter Summary ---
Author Organization [facility] Address [address] [facility] [place] [address] Care Team Providers Care Manager Target Name Role Phone Deisi Andrews MD Primary Care Provider [phone] Reason for Referral * Radiology Services (Routine) - Closed Specialty Diagnoses / Procedures Referred By Nacho brooks Referred To Contact CT Scan Diagnoses Malignant neoplasm of urinary bladder, unspecified site (HCC) Procedures CT UROGRAM Jose Oliver MD [address] [facility] [employer] [address] [place] [address] Referral ID Status Reason Start Date Expiration Date Visits Re quested Visits Authorized [id number] Closed 08/26/2023 08/25/2024 1 1 Reason for Visit * Reason Comments Cystoscopy Bladder Cancer Encounter Details Date Type Department Care Team (Late st Contact Info) Description 05/26/2023 1:00 PM CDT Procedure visit [facility] Urology [address] [place] [address] [address] [place] [phone] Jose Oliver MD [address] [facility] [address] [place] [address] Malignant neoplasm of urinary bladder, [...] Sign Reading Time Taken Comments Blood Pressure 142/91 05/26/2023 1:02 PM CDT Pulse 80 05/26/2023 1:02 PM CDT Temperature 36.5 ??C (97.7 ??F) 05/26/2023 1:02 PM CD T Respiratory Rate - - Oxygen Saturation 94% 05/26/2023 1:02 PM CDT Inhaled Oxygen Concentration - - [...] No 01/18/2023 documented as of this encounter Patient Instructions * Patient Instructions* Donna Arzate LPN - 05/26/2023 1:[address] PRIOR TO YOUR 09/01 APPOINTMENT WITH [facility] [phone] documented in this encounter Procedure Notes * Cisco Portillo MD - 05/26/2023 12:51 PM CDTProcedure(s): MD CYSTOURETHROSCOPY Pre-Procedure Diagnose(s): Malignant neoplasm of urinary bladder, unspecified site (HCC) Post-Procedure Diagnose(s): Malignant neoplasm of urinary bladder, unspecified site (HCC) Urology Procedure Note DATE OF SERVICE: 05/26/2023 HPI: 62 year old female with 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 01/2022: TURBT, HG pT1 , CT with left hydroureter and lateral wall lesion 03/2022: Repeat TURBT: no malignancy 07/2022: Office cysto, negative 11/2022: Office cysto: erythematous changes of bladder mucosa 01/2023: [facility] cysto, TURBT: no malignancy Last tumor: 01/2022 Last cysto: 01/2023 Last imagin01/2022 Here today for surveillance cystoscopy. No current hematuria or new urinary symptoms. PROCEDURE: Flexible cystoscopy ATTENDING: Jose Oliver MD RESIDENT: Cisco Portillo MD DESCRIPTION: Timeout was preformed to confirm patient and procedure. Patient was placed in lithotomy position, prepped and draped. Urojet was instilled in the urethra and allowed to sit for 5 minutesand the procedure was subsequently preformed. Flexible cystoscope was inserted and navigated through the urethra without abnormal findings. Bilateral ureteral orifices identified and unremarkable. There was evidence of prior resection sites along the left and right lateral calvin with some assocaited erythematous changes. There was also a smallbiopsy scar on the right posterior wall. There were no signs of recurrent malignancy. The scope wasretroflexed to complete the examination. At this point the flexible cystoscope was removed. PLAN: - Urine for cytology today. Will call if positive. - Return to clinic in 3 months for surveillance cystoscopy - CT urogram prior to next appointment Dr. Oliver was present and participated in procedure. Cisco Portillo MD Urology Resident 05/26/2023 12:51 PM Associated attestation - Jose Oliver MD - 05/26/2023 4:19 PM CDT I was present for the entire procedure. documented in this encounter Plan of Treatment Upcoming Encounters Date Type Department Care Team (Late st Contact Info) Description 01/19/2025 11:30 AM FASHION DESIGNER Procedure visit [facility] - Urology [address] [facility] [address] [place] [address] Jose Oliver MD [address] [place] [address] documented as of this encounter Goals Goal [...] Name Priority Date/Time Associated Diagnosis Comments CYTOLOGY NON-SIGNAL AND COMMUNICATIONS MAINTAINER PANEL Routine 06/02/2023 12:00 PM CDT Malignant neoplasm of urinary bladder, unspecified site (HCC) URINALYSIS AUTO - POINT OF CARE (AMB) [facility] Routine 05/26/2023 1:16 PM CDT Malignant neoplasm of urinary bladder, unspecified site (HCC) documented in this encounter Results * CT UROGRAM (10/22/2023 10:10 AM FASHION DESIGNER) Anatomical Region Laterality Modality Abdomen, Pelvis Computed Tomogra phy 10/22/2023 10:3 5 AM FASHION DESIGNER Impressions 10/22/2023 10:45 AM FASHION DESIGNER IMPRESSION: 1. An infiltrative bladder mass on [...] 10/22/2023 10:45 AM Narrative 10/22/2023 10:45 AM FASHION DESIGNER PROCEDURE: ??CT UROGRAM DATE/TIME OF EXAM: ??10/22/2023 [...] upper quadrant and adjacent to the spleen [id number] mm in maximum dimension. The adrenal glands, [...] AM Jose Oliver MD CT ORDERABLES * CYTOLOGY NON-SIGNAL AND COMMUNICATIONS MAINTAINER PANEL (06/02/2023 12:00 PM CDT) Clinical Information [facility] Comment: Malignant neoplasm of urinary bladder, unspecified site Pathologist [facility] Comment: Elbert Chawla M.D., Board Certified in Anatomic Pathology and Clinical Pathology [phone] (electronic signature) Report Notes [facility] Comment: Sears portions of this case have been reviewed by one or more pathologists. Test Performed at: [facility] [address] ??[id number] TERE KO MD Pathology/Cytolog y 05/29/2023 1:44 AM CDT Jose Oliver MD LAB - PATHOLOGY/CY TOLOGY ORDERABLES [facility] [address] [place] [address] * URINALYSIS AUTO - POINT OF CARE (AMB) [facility] (05/26/2023 1:16 PM CDT) Glucose UA neg [facility] [address] Bilirubin UA POCT neg [facility] [address] Ketones UA POCT neg [facility] [address] Specific [place] UA 1.[address] [facility] [address] Blood Urine POCT trace [facility] [address] Comment:3+ pH UA 5.5 [facility] [address] Protein UA trace [facility] [address] Comment:1+ Urobilinogen UA 3.5 umol/L [facility] [address] Nitrite UA neg [facility] [address] [facility]BC [facility] [address] Urine URINE / Unknown 05/26/2023 1 :16 PM CDT Jose Oliver MD LAB - POINT OF CAR E ORDERABLES [facility] [address] [place] [address], [facility] [phone] documented in this encounter Visit Diagnoses Diagnosis Malignant neoplasm of urinary bladder, unspecified site (HCC)- Primary Malignant neoplasm of urinary bladder, unspecified site (HCC) documented in this encounter Administered Medications Inactive Administered Medications - up to 3 most recent administrations Medication Order MAR Action Action Date Dose Rate Site lidocaine (Urojet) 2 % jelly Urethral, ONCE, 1 dose, On Wed05/26/23 at 1345 $ Given 05/26/2023 1:20 PM CDT documented in this encounter Care Teams Manager Target Relationship Specialty Start Date End Date Desii Andrews MD [address] [phone] PCP - General Family Medicine 05/26/23 10/26/24 documented as of this encounter
--- OUTSIDE RECORDS SUMMARY | 2024-11-12 04:43 | XMS_ITS | Encounter Summary ---
Author Organization [facility] Address [address] [place] [address] Care Team Providers Care Consulting Technical Manager Name Role Phone Neva Holden MD Primary Care Provider [phone] Reason for Visit * Reason Comments COPD Follow-up Encounter Details Date Type Department Care Team (Latest Contact Info) Description 01/05/2022 2:30 PM SUPERVISOR SOLDER MAKING Office Visit [facility] [place] [phone] Bora Martel MD [address] [place] [address] Stage 2 moderate COPD by GOLD classification ([facility]) (Primary Dx); Obstructive sleep apnea; Acute exacerbation of chronic obstructive pulmonary disease (COPD) (HCC); Encounter for screening for lung cancer; Tobacco use disorder; Need for prophylactic vaccination and inoculation against influenza Social History Tobacco Use Types Packs/Day Years [...] COVID-19? No / Unsure 12/31/2021 8:43 AM SUPERVISOR SOLDER MAKING documented as of this encounter Last Filed Vital Signs Vital Sign Reading Time Taken Comments Blood Pressure 118/78 01/05/2022 2:06 PM SUPERVISOR SOLDER MAKING Pulse 90 01/05/2022 2:06 PM SUPERVISOR SOLDER MAKING Temperature 35.3 ??C (95.5 ??F) 01/05/2022 2:06 PM CS T Respiratory Rate 18 01/05/2022 2:06 PM SUPERVISOR SOLDER MAKING Oxygen Saturation 96% 01/05/2022 2:06 PM SUPERVISOR SOLDER MAKING Inhaled Oxygen Concentration - - Weight 90.7 kg (200 lb) 01/05/2022 2:06 PM SUPERVISOR SOLDER MAKING Height 157.5 cm (5' 2 ) 01/05/2022 2:06 PM SUPERVISOR SOLDER MAKING Body Mass Index 36.58 01/05/2022 2:06 PM SUPERVISOR SOLDER MAKING documented in this encounter Progress Notes * Bora Martel MD - 01/05/2022 2:23 PM CST Images from the original note were not included. Division of Pulmonary, Critical Care, and Sleep Medicine [address] [place] [address], [address] [place] [address] HISTORY OF PRESENT ILLNESS: ?? Rody Zaidi??is a 60 year old??female??that was referred to clinic for COPD. Patient had 3 exacerbation in the last 6 months requiring prednisone burst and antibiotics. ?? She has been feeling more SOB than usual in the last 2 weeks after she contracted some flu like symptom from her niece. C/o cough with greenish sputum. No fever. ? Diagnosed with COPD 25 years ago. Never had a lung function test. Has been on proair and symbicort.Was also on Flovent for some time. Was doing well for a couple of years but started having more flairs last 3-4 months. Before COVID had frequent flair ups. ?? CATHERINE- does not wear hear CPAP.?? Scheduled follow up with sleep clinic. ? Ancillary symptoms: Chronic sinus drainage GERD well controlled ?? Current respiratory therapies/medications: - Symbicort 2 puffs BID - Spiriva daily - Proair - using daily 4-5 times per day - famotidine - cetirizine? HISTORIES: PAST MEDICAL/SURGICAL HISTORY: - CATHERINE - HTN - HLD - DM - CAD - anxiety - h/o COPD - Foot/toe surgery - cholecystectomy 2006 - carotid endarterectomy - tubal lication ?? FAMILY HISTORY: Family history of depression ?? SOCIAL HISTORY: Tobacco use:??Current smoker 5 cig per day, 1 ppd for past 40 years. Marijuana use. Ordered Nicotine patch, extensive counseling given for smoking cessation. ?? CAT score - 17 Past Medical History: Diagnosis Date ??? Anxiety ??? Atherosclerosis of coronary artery ??? Chest pain pain 10/23 ??? Chronic obstructive pulmonary disease (COPD) ??? Essential hypertension ??? History of diabetes mellitus ??? Obesity ??? Pure hypercholesterolemia ??? Sleep apnea does not use CPAP ??? Snoring Current Outpatient Medications: ??? albuterol (PROVENTIL;VENTOLIN) (2.5 MG/3ML) 0.083% nebulizer solution, Inhale 2.5 (two and one-half) mg by mouth every 4 hours as needed for Shortness of Breath, Disp: 75 mL, Rfl: 0 ??? albuterol HFA (PROAIR HFA) 108 (90 Base) MCG/ACT inhaler, Inhale 2 (two) puffs by mouth every 4hours as needed, Disp: 8.5 g, Rfl: 11 ??? aspirin EC (ECOTRIN) 325 MG tablet, , Disp: , Rfl: ??? budesonide-formoterol (SYMBICORT) 160-4.5 MCG/ACT inhaler, Inhale 2 (two) puffs by mouth 2 times daily, Disp: 10.2 g, Rfl: 5 ??? clopidogrel (PLAVIX) 75 MG tablet, Take 1 (one) tablet by mouth once daily, Disp: 90 tablet, Rfl: 0 ??? cromolyn (CROLOM) 4 % ophthalmic solution, Instill 1 drop into both eyes 3 times daily, Disp: 10 mL, Rfl: 4 ??? EPINEPHrine (EPIPEN) 0.3 MG/0.3ML auto-injector pen, epinephrine 0.3 mg/0.3 mL injection, auto-injector, Disp: , Rfl: ??? evolocumab (REPATHA SURECLICK) 140 MG/ML auto-injector, INJECT 1 PEN UNDER THE SKIN EVERY 14 DAYS, Disp: 6 mL, Rfl: 4 ??? ezetimibe (ZETIA) 10 MG tablet, Take 1 (one) tablet by mouth once daily, Disp: 90 tablet, Rfl: 4 ??? FLUoxetine (PROZAC) 60 MG tablet, Take 1 (one) tablet by mouth once daily for 90 days Reasons: Major Depressive Disorder, Disp: 90 tablet, Rfl: 0 ??? HYDROcodone-acetaminophen (NORCO) 10-325 MG tablet, Take 1 tablet by mouth 2 times daily 5/325 mg, Disp: , Rfl: ??? hydrocortisone (ANUSOL-HC) 25 MG suppository, Insert 1 (one) suppository into the rectum 2 times daily as needed for Hemorrhoids (Patient not taking: Reported on 01/05/2022), Disp: 24 suppository,Rfl: 1 ??? hydrocortisone (HYTONE) 2.5 % cream, hydrocortisone 2.5 % topical cream with perineal applicator, Disp: , Rfl: ??? hydrocortisone, rectal, (PROCTO-MED HC) 2.5 % cream, Insert into the rectum at bedtime, Disp: 28 g, Rfl: 0 ??? isosorbide mononitrate CR 24hr (IMDUR) 60 MG tablet, Take 1 (one) tablet by mouth once daily, Disp: 90 tablet, Rfl: 4 ??? LORazepam (ATIVAN) 2 MG tablet, Take 1 (one) tablet by mouth 2 times daily AND 0.5 (one-half) tablet at bedtime. Do all this for 90 days. Reasons: Feeling Anxious., Disp: 75 tablet, Rfl: 2 ??? losartan (COZAAR) 100 MG tablet, Take 1 (one) tablet by mouth once daily, Disp: 90 tablet, Rfl:4 ??? metFORMIN (GLUCOPHAGE) 500 MG tablet, Take 500 mg by mouth 2 times daily with morning and evening meal (Patient taking differently: Take 500 mg by mouth 2 times daily with morning and evening meal ), Disp: , Rfl: ??? metoprolol succinate XL 24hr (TOPROL XL) 50 MG tablet, Take 1 (one) tablet by mouth once daily,Disp: 90 tablet, Rfl: 3 ??? mirtazapine (REMERON) 15 MG tablet, Take 0.5 (one-half) tablet by mouth at bedtime for 90 days Reasons: Major Depressive Disorder, Panic Disorder, Disp: 45 tablet, Rfl: 0 ??? nicotine (NICODERM CQ) 14 MG/24HR patch, Apply 1 (one) patch to skin once daily, Disp: 30 patch, Rfl: 0 ??? nicotine (NICODERM CQ) 7 MG/24HR patch, Apply 1 (one) patch to skin once daily, Disp: 30 patch,Rfl: 0 ??? nitroGLYCERIN (NITROSTAT) 0.4 MG tablet, Dissolve 1 (one) tablet under the tongue every 5 minutes as needed for Angina, Disp: 100 tablet, Rfl: 4 ??? pantoprazole EC (PROTONIX) 40 MG tablet, Take 1 (one) tablet by mouth once daily, Disp: 90 tablet, Rfl: 1 ??? polyethylene glycol 3350 (MIRALAX) 17 GM/SCOOP powder, Take 17 (seventeen) g by mouth once daily (Patient not taking: Reported on 12/08/2021), Disp: 225 g, Rfl: 1 ??? potassium chloride (KLOR-CON M) 20 MEQ tablet, Take 10 mEq by mouth once daily (Patient taking differently: Take 10 mEq by mouth once daily ), Disp: , Rfl: ??? predniSONE (DELTASONE) 20 MG tablet, Take 2 (two) tablets by mouth once daily for 5 days, Disp:10 tablet, Rfl: 0 ??? tiotropium (SPIRIVA HANDIHALER) 18 MCG inhalation capsule, Inhale 1 (one) capsule by mouth oncedaily, Disp: 30 capsule, Rfl: 11 ??? vitamin D, ergocalciferol, (DRISDOL) 22365 UNITS capsule, Take 50,000 Units by mouth every 7 days , Disp: , Rfl: Allergies Allergen Reactions ??? Penicillins Other and Urticaria unknown Reaction: Hives, ??? Azithromycin Unknown ??? Risperidone Other Reported her face getting swollen ??? Statins [Hmg-Coa-R Inhibitors] Other Causes muscle tightness ??? Haloperidol Other unknown ??? Codeine Itching ??? Penicillin G Other ??? Triazolam Unknown Family History Problem Relation Name Age of Onset ??? Depression Mother ??? Alcohol abuse Father ??? Depression Sister ??? Thyroid Disease Neg Hx Social History Socioeconomic History ??? Marital status: [...] Drug use: Yes Types: Marijuana Comment: occassional ??? Sexual activity: Not on file Other Topics Concern ??? 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 Date last employed: 30 years ago Immunization History Administered Date(s) Administered ??? FLU VACCINE QUAD IIV4 SPLIT 0.25 ML IM 08/28/2020 ??? FLU VACCINE QUAD IIV4 SPLIT PF IM 07/30/2015, 10/21/2016, 08/26/2017, 07/27/2018, 09/22/2019 ??? FLU VACCINE TRI IIV3 SPLIT IM (AFLURIA) 12/16/2015 ??? INFLUENZA 08/28/2020 ??? PFIZER SARS-COV-2 COVID-19 VACCINE 0.3ML 02/17/2021, 03/13/2021 ??? PNEUMOCOCCAL PPSV23 10/21/2016 ??? Pneumococcal Pcv13 Conj 12/16/2015, 07/23/2016 ??? TDAP 01/31/2019, 05/27/2021 Systemic ROS: ROS: negative as below unless BOLDED Gen: fever, chills, weight changes, night sweats, HEENT: Swollen glands, Nasal discharge, blurred vision CV: palpitations, chest pain GI: diarrhea constipation nausea vomiting : dysuria frequency hematuria urgency. Hem: bleeding easy bruising. Skin: rash pruritus Neuro:weakness numbness headache. Psych: depression suicidal ideation homicidal ideation. Review of all other systems is negative. PE: BP 118/78 (BP SITE: RIGHT ARM, BP POSITION: SITTING, BP CUFF SIZE: 11) Pulse 90 Temp 95.5 ??F (35.3 ??C) Resp 18 Ht 5' 2 (1.575 m) Wt 200 lb (90.7 kg) SpO2 96% BMI 36.58 kg/m2 General: Alert, cooperative, no distress Head: Normocephalic, without obvious abnormality, atraumatic. Eyes: Conjunctivae/corneas clear. PERRL, EOMs intact. Throat: Mucosa membrane moist. II (soft palate, uvula, fauces visible). No injection or exudate noted. Neck: Supple, symmetrical, trachea midline, no adenopathy, thyroid: no enlargment/tenderness/nodules, no carotid bruit and no JVD. Lungs: b/l decreased BS with wheezing present. Heart: regular rate and rhythm, S1, S2 normal, no murmur, click, rub or gallop. Abdomen: Soft, non-tender. Bowel sounds normal. No masses, No organomegaly. Extremities: no edema in the lower extremities. ?? DATA REVIEWED: Lab data:?? Reviewed ?? Pulmonary function tests:? Radiology:?? Low dose CT oredered. Alpha 1 AT - Normal Phenotype and level 151. ?? ECHO:?? Completed, AWAITING report. ?? ASSESSMENT: 1.??COPD group D, in acute exacerbation 2.??Tobacco dependence 3.??CATHERINE, non compliant with CPAP 4.??Allergic rhinitis 5. GERD, well controlled 6. Generalized anxiety 7. CAD 8. lung cancer screening. ? PLAN/THERAPEUTIC: 1.??Discussed importance of smoking cessation - Patient continue to smoke 5 cig per day. - nicotine patch prescribed. 2.??AE-COPD treatment - Prednisone 40mg daily x 5 days 3.??Inhale regimen - Symbicort to 160/4.5 2 puffs BID - Spiriva 18 mcg DPI. - albuterol 2 puffs q4h as needed 4. Continue cetrizine and famotidine 5. Pulmonary rehab reordered today. 6. Low dose CAT scan for lung cancer screening 7. Flu shot given today 8. Sleep clinic referral made for CATHERINE- non compliant with CPAP. 9. RTC in 12 weeks with results Orders Placed This Encounter ??? CT LUNG SCREEN LOW DOSE Date of : 1960 Social History Tobacco Use Smoking status: Current Every Day Smoker Packs/day: 1.00 Years: 40.00 Pack years: 40 Types: Cigarettes Smokeless tobacco: Never Used Tobacco comment: pt said she will quit in 09/2021 Total Pack Year History: 40 reports that she has been smoking cigarettes. She has a 40.00 pack-year smoking history. She has never used smokeless tobacco. Standing Status: Future Standing Expiration Date: 01/05/2023 Order Specific Question: Release to patient Answer: Immediate Order Specific Question: Screening Type: Answer: Initial Order Specific Question: The patient was engaged in shared decision-making: Answer: Yes (Required for Initial) Order Specific Question: Smoking Status: Answer: Current Smoker Order Specific Question: 20+ pack year history of smoking: Answer: Yes Order Specific Question: Number of pack years: Answer: 40 Order Specific Question: Signs or Symptoms Suggestive of Underlying Lung Cancer? Answer: No Order Specific Question: Is the patient ? Answer: No Order Specific Question: Exam to be performed? Answer: Per Radiologist protocol ??? Ref to Sleep Specialist - [facility] Standing Status: Future Standing Expiration Date: 01/05/2023 Referral Priority: Routine Referral Type: Evaluate & Treat Referral Reason: Specialty Services Required Number of Visits Requested: 1 ??? Ref to Physical Therapy - [facility] PT Standing Status: Future Standing Expiration Date: 01/05/2023 Referral Priority: Urgent Referral Type: Evaluate & Treat Referral Reason: Specialty Services Required Number of Visits Requested: 1 ??? budesonide-formoterol (SYMBICORT) 160-4.5 MCG/ACT inhaler Sig: Inhale 2 (two) puffs by mouth 2 times daily Dispense: 10.2 g Refill: 5 ??? albuterol HFA (PROAIR HFA) 108 (90 Base) MCG/ACT inhaler Sig: Inhale 2 (two) puffs by mouth every 4 hours as needed Dispense: 8.5 g Refill: 11 ??? predniSONE (DELTASONE) 20 MG tablet Sig: Take 2 (two) tablets by mouth once daily for 5 days Dispense: 10 tablet Refill: 0 ??? nicotine (NICODERM CQ) 14 MG/24HR patch Sig: Apply 1 (one) patch to skin once daily Dispense: 30 patch Refill: 0 ??? nicotine (NICODERM CQ) 7 MG/24HR patch Sig: Apply 1 (one) patch to skin once daily Dispense: 30 patch Refill: 0 Follow-up in 3 months Case discussed with attending. Agree with above. Attending addendum to follow. Dr.Raja Hanna HUYNH Pulmonary & Critical Care Fellow Division of Pulmonary, Critical Care and Sleep Medicine [facility] Pager:[phone] RVISOR SOLDER MAKING Associated attestation - Billy Don MD - 01/06/2022 8:01 AM SUPERVISOR SOLDER MAKING I have seen and examined the patient with the resident and I agree with the findings and plan of care as documented by the resident. Date of service: 01/05/2022 Billy Don MD Mix Technician of Internal Medicine Division of Pulmonary, Critical Care and Sleep Medicine [facility] Pager: [phone] documented in this encounter Miscellaneous Notes * Addendum Note - Bora Martel MD - 02/02/2022 3:13 PM CDTAddended by: BORA MARTEL on: 02/02/2022 03:13 PM Modules accepted: Orders documented in this encounter Plan of Treatment Upcoming Encounters Date Type Department Care Team (Late st Contact Info) Description 01/19/2025 11:30 AM SUPERVISOR SOLDER MAKING Procedure visit [facility] - Urology [address] [place] [address] [address] [place] [address] Jose Oliver MD [facility] [place] [phone] documented as of this encounter Goals Goal [...] Stage 2 moderate COPD by GOLD classification ([facility])- Primary Obstructive sleep apnea Obstructive sleep apnea (adult) (pediatric) Acute exacerbation of chronic obstructive pulmonary disease (COPD) (HCC) Obstructive chronic bronchitis with exacerbation Encounter for screening for lung cancer Tobacco use disorder Need for prophylactic vaccination and inoculation against influenza documented in this encounter Care Teams Consulting Technical Manager Relationship Specialty Start Date End Date Neva Holden MD [address] [place] [phone] PCP - General 05/06/20 05/25/23 documented as of this encounter
--- OUTSIDE RECORDS SUMMARY | 2024-11-12 04:43 | XMS_ITS | Encounter Summary ---
Author Organization [facility] Address [address] [facility] [place] [address] Care Team Providers Care Improvement Engineer Name Role Phone Deisi Andrews MD Primary Care Provider [phone] Encounter Details Date Type Department Care Team (Late st Contact Info) Description 10/26/2023 Orders Only [facility] - Urology [address] [facility] [place] [phone] Monica Magallon LPN Malignant neoplasm of urinary bladder, unspecified site (HCC) ; Microscopic hematuria; Pre-op testing Social History Tobacco Use Types Packs/Day Years [...] Procedure visit [facility] - Urology [address] [place] [address] [address] [place] [phone] Jose Oliver MD [address] [place] [address] documented as of this encounter Goals Goal [...] bladder, unspecified site (HCC)- Primary Microscopic hematuria Pre-op testing Preoperative examination, unspecified documented in this encounter Care Teams Improvement Engineer Relationship Specialty Start Date End Date Deisi Andrews MD [address] [place] [address] DANNIE Rodríguez [phone] PCP - General Family Medicine 05/26/23 10/26/24 documented as of this encounter
--- OUTSIDE RECORDS SUMMARY | 2024-11-12 04:43 | XMS_ITS | Encounter Summary ---
Author Organization [facility] Address [address] [place] [address] Care Team Providers Care Consumer Affairs Specialist Name Role Phone Neva Holden MD Primary Care Provider [phone] Reason for Visit * Reason Onset Date Comments Surgery Verification 01/04/2023 Encounter Details Date Type Department Care Team (Late st Contact Info) Description 01/04/2023 Telephone [facility] [address] [place] [address] Jose Oliver MD [address] OF [place]IC [place] [phone] Surgery Verification Social History Tobacco Use Types Packs/Day Years [...] encounter Miscellaneous Notes * Telephone Encounter - Carlos Piñar - 01/04/2023 3:24 PM CST Attempted to reach both the patient as well as her emergency contact. The patient no showed for PAT's today and needs to be schedule TERRY or we will have to cancel surgery. Left voicemailt ot please return my call when possible Virgen Piña 01/04/2023 3:26 PM [address] OPERATOR documented in this encounter Plan of Treatment Upcoming Encounters Date Type Department Care Team (Late st Contact Info) Description 01/19/2025 11:30 AM SLITTER OPERATOR Procedure visit [facility] - Urology [address] [place] [address] [address] [place] [address] Jose Oliver MD [address] [place]OLOGIC [place] [address] documented as of this encounter Goals Goal [...] on filedocumented in this encounter Care Teams Consumer Affairs Specialist Relationship Specialty Start Date End Date Neva Holden MD [address] [place] [phone] PCP - General 05/06/20 05/25/23 documented as of this encounter
--- OUTSIDE RECORDS SUMMARY | 2024-11-12 04:44 | XMS_ITS | Encounter Summary ---
Author Organization [facility] Address [address] [facility] [place] [address] Care Team Providers Care Collection Clerk Name Role Phone Neva [place] MD Primary Care Provider [phone] Reason for Referral * Procedure (Routine) - Closed Specialty Diagnoses / Procedures Referred By Contac t Referred To Contact Pulmonary Disease Diagnoses Acute exacerbation of chronic obstructive pulmonary disease (COPD) (HCC) Tobacco dependence CATHERINE (obstructive sleep apnea) Procedures COMPLETE PFT W/WO BRONCHODILATOR Damian Hager MD [address] [place] [address] [place] [address] [facility] Pft [address] [place] [address] Referral ID Status Reason Start Date Expiration Date Visits Re quested Visits Authorized [id number] Closed 07/30/2021 07/30/2022 1 1 N RESOURCE PROFESSIONAL Reason for Visit * Procedure (Routine) - Closed Specialty Diagnoses / Procedures Referred By Contac t Referred To Contact Pulmonary Disease Diagnoses Acute exacerbation of chronic obstructive pulmonary disease (COPD) (HCC) Tobacco dependence CATHERINE (obstructive sleep apnea) Procedures COMPLETE PFT W/WO BRONCHODILATOR Damian Hager MD [address] [place] [address] [facility] [address]ft [address] [place] [address] Referral ID Status Reason Start Date Expiration Date Visits Re quested Visits Authorized [id number] Closed 07/30/2021 07/30/2022 1 1 Encounter Details Date Type Department Care Team (Latest Contact Info) Description 10/06/2021 1:00 PM HUMAN RESOURCE PROFESSIONAL - 10/06/2021 1:05 PM HUMAN RESOURCE PROFESSIONAL Hospital Encounter [facility] PFT [address] [place] [address] Damian Hager MD [address] [place] [address] Discharge Disposition: Home or Self [...] have Coronavirus / COVID-19? No / Unsure 10/06/2021 12:48 PM HUMAN RESOURCE PROFESSIONAL documented as of this encounter Medications at Time of Discharge Medication Sig Dispensed Refills Start Date End Date cromolyn (CROLOM) 4 % ophthalmic solution Instill 1 drop into both eyes 3 times daily 10 mL 4 06/12/2020 EPINEPHrine (EPIPEN) 0.3 MG/0.3ML auto-injector pen epinephrine 0.3 mg/0.3 mL injection, auto-injector metFORMIN (GLUCOPHAGE) 500 MG tablet Take 1 (one) tablet by mouth 2 times daily with morning and evening meal 12/27/2016 vitamin D, ergocalciferol, (DRISDOL) 68205 UNITS capsule Take 1 (one) capsule by mouth every 7 days 01/29/2019 albuterol (PROVENTIL;VENTOLI N) (2.5 MG/3ML) 0.083% nebulizer solution 09/11/2016 11/03/2021 albuterol HFA (VENTOLIN HFA) 108 (90 BASE) MCG/ACT inhaler 09/20/2017 11/03/2021 ALPRAZolam (XANAX) 1 MG tabletIndications: Anxiety,Panic Disorder [...] by mouth 2 times daily 07/02/2021 12/08/2021 ezetimibe (ZETIA) 10 MG tablet Take 10 mg by mouth once daily 08/19/2020 12/08/2021 FLUoxetine (PROZAC) 60 MG tablet TAKE 1 TABLET BY MOUTH EVERY DAY 30 tablet 2 09/09/2021 12/11/2021 fluticasone propionate (FLONASE) 50 MCG/ACT nasal spray fluticasone propionate 50 mcg/actuation nasal spray,suspension 2019 12/08/2021 HYDROcodone-acetam inophen (NORCO) 10-325 MG tablet [...] mEq by mouth once daily 09/25/2017 03/17/2022 REPATHA SURECLICK 140 MG/ML auto-injector INJECT 1 PEN UNDER THE SKIN EVERY 14 DAYS 2 mL 2 08/13/2021 10/30/2021 SYMBICORT 160-4.5 MCG/ACT inhaler Inhale 2 puffs by mouth 2 times daily 09/18/2021 11/03/2021 triamcinolone acetonide (KENALOG) 0.1 % cream triamcinolone acetonide 0.1 % topical cream APPLY TOPICALLY TO THE AFFECTED AREA TWICE DAILY 12/08/2021 documented as of this encounter Procedure Notes * Mary Benson MD - 10/06/2021 1:05 PM CSTAssociated Order(s): COMPLETE PFT W/WO BRONCHODILATOR Images from the original note were not included. N RESOURCE PROFESSIONAL * Mary Benson MD - 10/06/2021 1:05 PM CSTAssociated Order(s): PFT OXYGEN DESATURATION STUDY Images from the original note were not included. N RESOURCE PROFESSIONAL * Mary Benson MD - 10/06/2021 1:05 PM CSTAssociated Order(s): SIX MINUTE WALK Images from the original note were not included. N RESOURCE PROFESSIONAL documented in this encounter Plan of Treatment Upcoming Encounters Date Type Department Care Team (Late st Contact Info) Description 01/19/2025 11:30 AM HUMAN RESOURCE PROFESSIONAL Procedure visit [facility] - Urology [address] [place] [address] [address] [place] [address] Jose Oliver MD [facility] [place] [address] documented as of this encounter Goals Goal [...] Procedure Name Priority Date/Time Associated Diagnosis Comments BLOOD GASES ART+COOX POCT Routine 10/06/2021 1:38 PM HUMAN RESOURCE PROFESSIONAL SIX MINUTE WALK Routine 10/06/2021 1:05 PM HUMAN RESOURCE PROFESSIONAL Acute exacerbation of chronic obstructive pulmonary disease (COPD) (HCC) Tobacco dependence CATHERINE (obstructive sleep apnea) PFT OXYGEN DESATURATION STUDY Routine 10/06/2021 1:05 PM HUMAN RESOURCE PROFESSIONAL Acute exacerbation of chronic obstructive pulmonary disease (COPD) (HCC) Tobacco dependence CATHERINE (obstructive sleep apnea) COMPLETE PFT W/WO BRONCHODILATOR Routine 10/06/2021 1:05 PM [facility] Acute exacerbation of chronic obstructive pulmonary disease (COPD) (HCC) Tobacco dependence CATHERINE (obstructive sleep apnea) documented in this encounter Results * (ABNORMAL) BLOOD GASES ART+COOX POCT (10/06/2021 1:38 PM [facility]) pH Arterial 7.44 7.35 - 7.45 pH 10/06/2021 1:38 PM [facility] pO2 Arterial 78(L) 80 - 100 mmHg 10/06/2021 1:38 PM [facility] pCO2 Arterial 44 35 - 45 mmHg 1:38 PM [facility] BE Arterial 5.0(H) -2.0 - 2.0 mmol/L 10/06/2021 1:38 PM [facility] Oxyhemoglobin Arterial 91.5 % 10/06/2021 1:38 PM [facility] Dexoyhemoglobin (HHB) % 1.9 % 10/06/2021 1:38 PM [facility] O2 Content Arterial 17.5 Interpret within clinical context mg/dL 10/06/2021 1:38 PM [facility] Hemoglobin by COOX 13.6 12.0 - 15.6 g/dL 10/06/2021 1:38 PM [facility] O2 Saturation Arterial 98 90 - 100 % 10/06/2021 1:38 PM [facility] HCO3 Arterial 30 20 - 30 mmol/l 10/06/2021 1:38 PM [facility] Methemoglobin 0.8 0.0 - 2.0 % 10/06/2021 1:38 PM [facility] Carboxyhemoglobin 5.9(H) 0.0 - 2.0 % 2020 1:38 PM [facility] Comment:Carboxyhemoglobin No rmal Concentration: Non-smokers: 0-2%; Smokers: 0- 9%; Toxic: >20% Blood, arterial ARTERIAL BLOOD SPECIMEN / Unknown 10/06/2021 1:38 PM HUMAN RESOURCE PROFESSIONAL 10/06/2021 1:39 PM HUMAN RESOURCE PROFESSIONAL Damian Hager MD LAB - POINT OF CARE ORDERABLES [facility] [address] [place] [address], [facility] [phone] * PFT OXYGEN DESATURATION STUDY (10/06/2021 1:05 PM HUMAN RESOURCE PROFESSIONAL) Impressions Rose Marie Oro MD - 10/06/2021 1:05 PM HUMAN RESOURCE PROFESSIONAL [facility] DEPARTMENT OF PULMONARY, CRITICAL CARE, AND SLEEP [...] Marie Oro MD - 10/06/2021 1:05 PM HUMAN RESOURCE PROFESSIONAL Mary Bensno MD ? 10/11/2021 ??4:46 PM Damian Hager MD PFT ORDERABLES * COMPLETE PFT W/WO BRONCHODILATOR (10/06/2021 1:05 PM HUMAN RESOURCE PROFESSIONAL) Impressions Rose Marie Oro MD - 10/06/2021 1:05 PM HUMAN RESOURCE PROFESSIONAL [facility] DEPARTMENT OF PULMONARY, CRITICAL CARE, AND [...] no previous study available for comparison Darlene Benson M.D. Division of Pulmonary, Critical Care, & Sleep Medicine [facility] I have personally reviewed and intepreted the results of the study and made any necessary edits to the final impression of the fellow. Rose Marie Oro MD Narrative Rose Marie Oro MD - 10/06/2021 1:05 PM HUMAN RESOURCE PROFESSIONAL Mary Benson MD ? 10/11/2021 ??4:46 PM Damian Hager MD RESPIRATORY THERAPY ORDERABLES documented in this encounter Visit Diagnoses Diagnosis Chronic obstructive pulmonary disease with acute exacerbation (HCC)- Primary Obstructive chronic bronchitis with exacerbation Acute exacerbation of chronic obstructive pulmonary disease (COPD) (HCC) Obstructive chronic bronchitis with exacerbation Tobacco dependence Tobacco use disorder CATHERINE (obstructive sleep apnea) Obstructive sleep apnea (adult) (pediatric) documented in this encounter Care Teams Collection Clerk Relationship Specialty Start Date End Date Neva [place] MD [address] [place] [phone] PCP - General 05/06/20 05/25/23 documented as of this encounter
--- OUTSIDE RECORDS SUMMARY | 2024-11-12 04:44 | XMS_ITS | Encounter Summary ---
Author Organization [facility] Address [address] [facility] [place] [address] Care Team Providers Care Shop Mechanic Name Role Phone Neva [place] MD Primary Care Provider [phone] Reason for Visit * Reason Comments Refill Request Encounter Details Date Type Department Care Team (Late Contact Info) Description 08/11/2021 Refill [facility] [address] [facility] [address] [place] [address] Monica Quijano MD Refill Request Social History [...] (Late Contact Info) Description 01/19/2025 11:30 AM COMPLAINT CLERK Procedure visit [facility] - Urology [address] [place] [address] [address] [place] [phone] Jose Oliver MD [address] [place] [phone] documented as of this encounter Goals Goal [...] on filedocumented in this encounter Care Teams Shop Mechanic Relationship Specialty Start Date End Date Neva [place] MD [address] [place] [phone] PCP - General 05/06/20 05/25/23 documented as of this encounter
--- OUTSIDE RECORDS SUMMARY | 2024-11-12 04:44 | XMS_ITS | Encounter Summary ---
Author Organization [facility] Address [address] [facility] [place] [address] Care Team Providers Care Engine Specialist Name Role Phone Neva [place] MD Primary Care Provider [phone] Encounter Details Date Type Department Care Team (Late Contact Info) Description 10/01/2020 Orders Only [facility] [address] [facility] [place] [address] [place] [address] Monica Quijano MD Stable angina pectoris Social History Tobacco Use Types Packs/Day Years Used Date Smoking Tobacco: Every Day Cigarettes 0.5 40 Smokeless Tobacco: Never Alcohol Use Standard [...] (Late Contact Info) Description 01/19/2025 11:30 AM HERITAGE CONSULTANT Procedure visit [facility] - Urology [address] [place] [address] [address] [place] [phone] Jose Oliver MD [address] [place] [phone] documented as of this encounter Goals Goal [...] Procedure Name Priority Date/Time Associated Diagnosis Comments CCL CARDIAC CATH LEFT Routine 10/24/2020 10:29 AM HERITAGE CONSULTANT Stable angina pectoris documented in this encounter Results * CCL CARDIAC CATH LEFT (10/24/2020 10:29 AM HERITAGE CONSULTANT) Anatomical Region Laterality Modality Chest X-Ray Angiograph y Narrative 11/05/2020 4:10 PM HERITAGE CONSULTANT [facility] Cardiac Catheterization Procedure Note Patient: Rody Zaidi Age: [age] year old Date of : 1960 Date of Admission: 10/24/2020 Procedure Date: 10/24/20 FELLOW / DIRECTOR FINANCIAL ANALYSIS: Mart Clinton ATTENDING PHYSICIAN: Dr. Deven Cook. [...] had chest pain with dyspnea. Coming for [facility] for evaluation. Also reported abnormal test in past but no image or report available. Per outside bunch breaker Stress test done in 01/2020 was clinically [...] evaluation, please review the evaluation forms in [facility]. For details on monitored clinical parameters during the intra-service sedation time, please review the procedure nurse documentation in [facility]. Total sedation administered as follows: ??25 mcg [...] Deven Gonzalez MD Monica Quijano MD CARDIAC SALES DEVELOPMENT COORDINATOR RA DIANT documented in this encounter Visit Diagnoses Diagnosis Stable angina pectoris (HCC) Essential (primary) hypertension- Primary Unspecified essential hypertension PAD (peripheral artery disease) (HCC) Unspecified disorders of arteries and arterioles CAD in [place] artery Coronary atherosclerosis of [place] coronary artery documented in this encounter Care Teams Engine Specialist Relationship Specialty Start Date End Date Neva [place] MD [address] [place] [phone] PCP - General 05/06/20 05/25/23 documented as of this encounter
--- OUTSIDE RECORDS SUMMARY | 2024-11-12 04:44 | XMS_ITS | Encounter Summary ---
Author Organization [facility] Address [address] [facility] [place] [address] Care Team Providers Care Functional Tester Typewriters Name Role Phone Neva [place] MD Primary Care Provider [phone] Encounter Details Date Type Department Care Team (Latest Contact Info) Description 10/06/2021 1:06 PM ASSISTANT DIRECTOR OF PUBLIC WORKS - 10/06/2021 3:19 PM ASSISTANT DIRECTOR OF PUBLIC WORKS Hospital Encounter [facility] PFT [address] [place] [phone] Damian Hager MD [address] [place] [phone] Discharge Disposition: Home or Self Care Social [...] COVID-19? No / Unsure 10/06/2021 12:48 PM ASSISTANT DIRECTOR OF PUBLIC WORKS documented as of this encounter Medications at [...] evening meal 12/27/2016 vitamin D, ergocalciferol, (DRISDOL) 21036 UNITS capsule Take 1 (one) capsule by [...] Contact Info) Description 01/19/2025 11:30 AM ASSISTANT DIRECTOR OF PUBLIC WORKS Procedure visit [facility] - Urology [address] [place] [address] [address] [place] [phone] Jose Oliver MD [address] [place] [phone] documented as of this encounter Goals Goal [...] Procedure Name Priority Date/Time Associated Diagnosis Comments SIX MINUTE WALK Routine 10/06/2021 1:05 PM ASSISTANT DIRECTOR OF PUBLIC WORKS Acute exacerbation of chronic obstructive pulmonary disease (COPD) (HCC) Tobacco dependence CATHERINE (obstructive sleep apnea) documented in this encounter Results * SIX MINUTE WALK (10/06/2021 1:05 PM ASSISTANT DIRECTOR OF PUBLIC WORKS) Impressions Rose Marie Oro MD - 10/06/2021 1:05 PM ASSISTANT DIRECTOR OF PUBLIC WORKS [facility] DEPARTMENT OF PULMONARY, CRITICAL CARE, AND SLEEP MEDICINE SIX MINUTE WALK TEST Rody Zaidi 10/11/2021 Interpretation: The patient walked for 6 [...] Marie Oro MD - 10/06/2021 1:05 PM ASSISTANT DIRECTOR OF PUBLIC WORKS Mary Benson MD ? 10/11/2021 ??4:46 PM Damian Hager MD RESPIRATORY THERAPY ORDERABLES documented in this encounter Visit Diagnoses Diagnosis Acute exacerbation of chronic obstructive pulmonary disease (COPD) (HCC) Obstructive chronic bronchitis with exacerbation Tobacco dependence Tobacco use disorder CATHERINE (obstructive sleep apnea) Obstructive sleep apnea (adult) (pediatric) documented in this encounter Care Teams Functional Tester Typewriters Relationship Specialty Start Date End Date Neva [place] MD [address] [place] [phone] PCP - General 05/06/20 05/25/23 documented as of this encounter
--- OUTSIDE RECORDS SUMMARY | 2024-11-12 04:44 | XMS_ITS | Encounter Summary ---
Author Organization [facility] Address [address] [place] [address] Care Team Providers Care Garment Presser Name Role Phone Neva [place] MD Primary Care Provider [phone] Reason for Visit * Radiology Services (Routine) - Closed Specialty Diagnoses / Procedures Referred By Nacho t Referred To Contact Vascular Lab Diagnoses Peripheral vascular disease with claudication (HCC) Procedures VAS ARTERIAL ANKLE ARM INDEX VAS ARTERIAL MULTILEVEL LE Asa Mcnamara MD [facility]. [facility] [address] [place] [address] Referral ID Status Reason Start Date Expiration Date Visits Re quested Visits Authorized [id number] Closed 06/17/2020 06/17/2021 1 1 Encounter Details Date Type Department Care Team (Latest Contact Info) Description 07/10/2020 12:31 PM CDT - 07/10/2020 11:59 PM CDT Hospital Encounter [facility] VASCULAR [address] [place] [address] Leo Tamayo MD [address] [place] [address] [place] [address] Discharge Disposition: Home or Self Care Social History Tobacco Use Types Packs/Day Years Used Date Smoking Tobacco: Every Day Smokeless Tobacco: Never Alcohol Use Standard Drinks/Week [...] or suspected to have Coronavirus / COVID-19? Unable to assess 06/18/2020 12:59 PM CDT documented as of this encounter Medications at Time of Discharge Medication Sig Dispensed Refills Start Date End Date cromolyn (CROLOM) 4 % ophthalmic solution Instill 1 drop into both eyes 3 times daily 10 mL 4 06/12/2020 metFORMIN (GLUCOPHAGE) 500 MG tablet Take 1 (one) tablet by mouth 2 times daily with morning and evening meal 12/27/2016 vitamin D, ergocalciferol, (DRISDOL) 36763 UNITS capsule Take 1 (one) capsule by mouth every 7 days 01/29/2019 albuterol (PROVENTIL;VENTOLIN) (2.5 MG/3ML) 0.083% nebulizer solution 09/11/2016 albuterol HFA (VENTOLIN HFA) 108 (90 BASE) MCG/ACT inhaler 09/20/20172020 ALPRAZolam (XANAX) 1 MG tabletIndications:Anxi ety Take 1 tablet by mouth 3 times daily as needed for Anxiety Reasons: Feeling Anxious 90 tablet 2 06/19/2020 08/21/2020 aspirin EC (ECOTRIN) 325 MG tablet 12/15/2015 01/11/2023 beclomethasone dipropionate (QVAR) 40 MCG/ACT inhaler 10/28/2016 08/29/2020 budesonide-formoterol (SYMBICORT) 80-4.5 MCG/ACT inhaler 06/23/2017 07/30/2021 cilostazol (PLETAL) 100 MG tablet Take 100 mg by mouth 2 times daily 02/21/2020 09/01/2021 cyclobenzaprine (FLEXERIL) 10 MG tablet TK 1 T PO TID PRN 07/01/2020 12/08/2021 FLUoxetine (PROZAC) 40 MG capsuleIndications:Chon or Depressive Disorder Take 1 capsule by mouth once daily Reasons: Major Depressive Disorder 30 capsule 2 06/19/2020 08/21/2020 fluticasone propionate (FLONASE) 50 MCG/ACT nasal spray fluticasone propionate 50 mcg/actuation nasal spray,suspension 2019 12/08/2021 isosorbide mononitrate CR 24hr (IMDUR) 30 MG tablet 10/28/2016 10/01/2020 losartan (COZAAR) 100 MG tablet 02/05/2019 12/08/2021 metoprolol succinate XL 24hr (TOPROL XL) 25 MG tablet 10/28/2016 10/01/2020 montelukast (SINGULAIR) 10 MG tablet 10/28/2016 08/29/2020 nitroGLYCERIN (NITROSTAT) 0.4 MG tablet 11/06/2016 12/08/2021 omeprazole EC (PRILOSEC OTC) 20 MG tablet 12/15/2015 09/01/2021 potassium chloride (KLOR-CON M) 20 MEQ tablet Take 10 mEq by mouth once daily 09/25/2017 03/17/2022 predniSONE (DELTASONE) 10 MG tablet TK 1 T PO QD 03/21/2020 10/24/2020 traZODone (DESYREL) 50 MG tabletIndications:Inso mnia Take 1 tablet by mouth at bedtime Reasons: Trouble Sleeping 30 tablet 2 06/19/2020 08/21/2020 varenicline (CHANTIX STARTING MONTH ) 0.5 MG X 11 & 1 MG X 42 tablets FPD UTD 12/25/2019 06/25/2021 documented as of this encounter Plan of Treatment Upcoming Encounters Date Type Department Care Team (Late st Contact Info) Description 01/19/2025 11:30 AM WATER PURIFICATION CHEMIST Procedure visit [facility] - Urology [address] [place] [address] [address] [place] [address] Jose Oliver MD [address] [place] [address] documented as of this encounter Procedures Procedure Name Priority Date/Time Associated Diagnosis Comments VAS ARTERIAL ANKLE ARM INDEX Routine 07/10/2020 2:18 PM CDT Peripheral vascular disease with claudication (HCC) documented in this encounter Results * VAS ARTERIAL ANKLE ARM INDEX (07/10/2020 2:18 PM CDT) Anatomical Region Laterality Modality Ankle / Foot, Upper Extremity In travascular Ultrasound 07/10/2020 1:33 AM CDT Narrative Procedure Note Eric Costa MD - 07/11/2020 Asa Mcnamara MD VASCULAR LAB ORDERAB LES documented in this encounter Visit Diagnoses Diagnosis Peripheral vascular disease with claudication (HCC) Peripheral vascular disease, unspecified documented in this encounter Care Teams Garment Presser Relationship Specialty Start Date End Date Neva [place] MD [address] [place] [phone] PCP - General 05/06/20 05/25/23 documented as of this encounter
--- OUTSIDE RECORDS SUMMARY | 2024-11-12 04:44 | XMS_ITS | Encounter Summary ---
Author Organization [facility] Address [address] [place] [address] Care Team Providers Care Thread Dresser Name Role Phone Neva Holden MD Primary Care Provider [phone] Reason for Referral * Radiology Services (Routine) - Closed Specialty Diagnoses / Procedures Referred By Nacho t Referred To Contact Cardiac Cath Diagnoses Stable angina pectoris (HCC) Procedures CCL CARDIAC CATH LEFT Monica Quijano MD [address] [place] [phone] [facility] Cardiac Property Site Manager [address] [place] [address] Referral ID Status Reason Start Date Expiration Date Visits Re quested Visits Authorized [id number] Closed 10/18/2020 04/16/2021 1 1 R MAINTENANCE Reason for Visit * Consult, Test & Treat (Routine) - Closed Specialty Diagnoses / Procedures Referred By Nacho brooks Referred To Contact Cardiology Diagnoses Abnormal result of other cardiovascular function study Neva Hodlen MD [address] [place] [address] Monica Quijano MD [address], [place] [address] Referral ID Status Reason Start Date Expiration Date Visits Re quested Visits Authorized [id number] Closed 09/11/2020 09/11/2021 1 1 Encounter Details Date Type Department Care Team (Late st Contact Info) Description 10/01/2020 10:00 AM WIRER MAINTENANCE Office Visit [facility] Cardiology [address] [facility] [address] [place] [address] Monica Quijano MD Essential (primary) hypertension (Primary Dx); Stable angina pectoris Social History Tobacco Use [...] Sign Reading Time Taken Comments Blood Pressure 138/90 10/01/2020 9:39 AM WIRER MAINTENANCE Pulse 86 10/01/2020 9:39 AM WIRER MAINTENANCE Temperature - - Respiratory Rate - - Oxygen Saturation 97% 10/01/2020 9:39 AM WIRER MAINTENANCE Inhaled Oxygen Concentration - - Weight 95.7 kg (211 lb) 10/01/2020 9:39 AM WIRER MAINTENANCE Height 160 cm (5' 3 ) 10/01/2020 9:39 AM WIRER MAINTENANCE Body Mass Index 37.38 10/01/2020 9:39 AM WIRER MAINTENANCE documented in this encounter Patient Instructions * Patient Instructions* Monica Quijano MD - 10/01/2020 9:54 AM WIRER MAINTENANCE Please start taking metoprolol succinate 100 mg daily. Please start taking Imdur 60 mg daily. Try really had to stop smoking, this is the most important thing you can do for your health. We will plan for a heart cath to be done at [facility] on . R MAINTENANCE documented in this encounter Consult Notes * Monica Quijano MD - 10/01/2020 9:32 AM CST CARDIOLOGY CONSULTATION NOTE Patient: Rody Zaidi Age: [age] year old Date of : 1960 Date: 10/01/2020 Reason for consult: chest pain HISTORY: It was my pleasure to see Ms. Rody Zaidi in consultation at [facility] on 10/01/2020 forevaluation of her chest pain. She is a pleasant 59 year old female with a history of PVD (s/p BL iliac stenting, BL CEA), DMII, active tobacco use. Patient reports 6 months of chest pain- central, non radiating, 7/10, pressure/sharp associated with shortness of breath. Chest pain brought on by walking up stairs or emotional stress (daughter's bf) Relieved with rest and calming herself done. 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 She has been on BB, Imdur at low doses. Has SL NG but has not used. Had muscle pain with high dose rosuvastatin, no pain on prava. Now off statin, on zetia and tolerating. DM managed by PCP. Trying to stop smoking, but not making much headway- stopped taking Chantix, plans to restart. PAST MEDICAL HISTORY: She has a past medical history of Anxiety, Atherosclerosis of coronary artery, Chest pain, Chronic obstructive pulmonary disease (COPD), Essential hypertension, History of diabetes mellitus, Obesity, Pure hypercholesterolemia, Sleep apnea, and Snoring. PAST SURGICAL HISTORY: Her has a past surgical history that includes hx carotid endardectomy (2014); tympanostomy (2013); cholecystectomy (2006); hx c section classic (1989); hx tubal ligation (1989); and pr foot/toes surgery proc unlisted. FAMILY HISTORY: Her family history includes Alcohol abuse in her father; Depression in her mother and sister. She She indicated that the status of her mother is unknown. She indicated that the statusof her father is unknown. She indicated that the status of her sister is unknown. She indicated that the status of her neg hx is unknown. SOCIAL HISTORY: She reports that she has been smoking cigarettes. She has a 20.00 pack-year smokinghistory. She has never used smokeless tobacco. She reports current drug use. Drug: Marijuana. She reports that she does not drink alcohol. ALLERGIES: Allergies Allergen Reactions ??? Penicillins Other and Urticaria unknown Reaction: Hives, ??? Risperidone Other Reported her face getting swollen ??? Haloperidol Other unknown ??? Codeine Itching ??? Penicillin G Other HOME MEDICATIONS: Current Outpatient Medications: ??? albuterol (PROVENTIL;VENTOLIN) (2.5 MG/3ML) 0.083% nebulizer solution, , Disp: , Rfl: ??? albuterol HFA (VENTOLIN HFA) 108 (90 BASE) MCG/ACT inhaler, , Disp: , Rfl: ??? ALPRAZolam (XANAX) 1 MG tablet, Take 1 tablet by mouth 3 times daily as needed for Anxiety Reasons: Feeling Anxious, Disp: 90 tablet, Rfl: 2 ??? aspirin EC (ECOTRIN) 325 MG tablet, , Disp: , Rfl: ??? budesonide-formoterol (SYMBICORT) 80-4.5 MCG/ACT inhaler, , Disp: , Rfl: ??? cetirizine (ZYRTEC) 10 MG tablet, cetirizine 10 mg tablet, Disp: , Rfl: ??? cilostazol (PLETAL) 100 MG tablet, Take 100 mg by mouth 2 times daily, Disp: , Rfl: ??? clopidogrel (PLAVIX) 75 MG tablet, Take 1 tablet by mouth once daily, Disp: 90 tablet, Rfl: 0 ??? cromolyn (CROLOM) 4 % ophthalmic solution, Instill 1 drop into both eyes 3 times daily, Disp: 10 mL, Rfl: 4 ??? cyclobenzaprine (FLEXERIL) 10 MG tablet, TK 1 T PO TID PRN, Disp: , Rfl: ??? EPINEPHrine (EPIPEN) 0.3 MG/0.3ML auto-injector pen, epinephrine 0.3 mg/0.3 mL injection, auto-injector, Disp: , Rfl: ??? ezetimibe (ZETIA) 10 MG tablet, Take 10 mg by mouth once daily, Disp: , Rfl: ??? FLUoxetine (PROZAC) 40 MG capsule, Take 1 capsule by mouth once daily for 90 days Reasons: Major Depressive Disorder, Disp: 30 capsule, Rfl: 2 ??? fluticasone propionate (FLONASE) 50 MCG/ACT nasal spray, fluticasone propionate 50 mcg/actuation nasal spray,suspension, Disp: , Rfl: ??? FUROSEMIDE PO, Take 40 mg by mouth once daily, Disp: , Rfl: ??? HYDROcodone-acetaminophen (NORCO) 10-325 MG tablet, , Disp: , Rfl: ??? hydrocortisone, rectal, (ANUSOL-HC) 2.5 % cream, Insert into the rectum 2 times daily, Disp: 2 tube, Rfl: 3 ??? ibuprofen (MOTRIN) 600 MG tablet, ibuprofen 600 mg tablet TAKE 1 TABLET BY MOUTH THREE TIMES DAILY, Disp: , Rfl: ??? isosorbide mononitrate CR 24hr (IMDUR) 60 MG tablet, Take 1 tablet by mouth once daily, Disp: 90 tablet, Rfl: 4 ??? losartan (COZAAR) 100 MG tablet, , Disp: , Rfl: ??? meloxicam (MOBIC) 15 MG tablet, meloxicam 15 mg tablet, Disp: , Rfl: ??? metFORMIN (GLUCOPHAGE) 500 MG tablet, , Disp: , Rfl: ??? metoprolol succinate XL 24hr (TOPROL XL) 100 MG tablet, Take 1 tablet by mouth once daily, Disp: 90 tablet, Rfl: 3 ??? nicotine polacrilex (NICORETTE) 2 MG, Take 1 Each by mouth as needed Reasons: Nicotine Addiction, Disp: 48 Each, Rfl: 2 ??? nitroGLYCERIN (NITROSTAT) 0.4 MG tablet, , Disp: , Rfl: ??? omeprazole EC (PRILOSEC OTC) 20 MG tablet, , Disp: , Rfl: ??? ondansetron, disintegrating, (ZOFRAN ODT) 4 MG tablet, DISSOLVE 1 TABLET IN MOUTH EVERY 6 TO 8 HOURS NEEDED FOR NAUSEA, Disp: , Rfl: ??? potassium chloride (KLOR-CON M) 20 MEQ tablet, , Disp: , Rfl: ??? predniSONE (DELTASONE) 10 MG tablet, TK 1 T PO QD, Disp: , Rfl: ??? rosuvastatin (CRESTOR) 10 MG tablet, Take 1 tablet by mouth once daily, Disp: 90 tablet, Rfl: 3 ? ? varenicline (CHANTIX STARTING MONTH LISS) 0.5 MG X 11 & 1 MG X 42 tablets, FPD UTD, Disp: , Rfl: ??? vitamin D, ergocalciferol, (DRISDOL) 24061 UNITS capsule, , Disp: , Rfl: REVIEW OF SYSTEMS: A full review of systems was preformed and was negative unless bolded. General: weigh gain,??appetite change, fatigue, weakness, fever/chills HEENT: rashes, itching, headache, acute visual changes, hearing loss, tinnitus, rhinorrhea, hoarseness, sore throat Cardiac: chest pain, palpitations, dyspnea on exertion, edema Respiratory:??shortness of breath,??wheezing, sputum,??hemoptysis, cough Gastrointestinal: abdominal pain, nausea, vomiting,??change in bowel habits, diarrhea, constipation, hematochezia, or melena Genitourinary: dysuria, hematuria hesitancy, frequency Musculoskeletal: muscle weakness, joint pain or stiffness, limited range of motion Neurologic: numbness or tingling in extremities, dizziness, lightheadedness Hematologic: easy bruising/bleeding PHYSICAL EXAM: Vitals: 10/01/20 0939 BP: 138/90 Pulse: 86 SpO2: 97% Weight: 211 lb (95.7 kg) Height: 5' 3 (1.6 m) General [...] edema. Musculoskeletal: Normal range of motion. Pulses: All pulses 2+ and symmetric. (radial) Skin: Skin color, texture, turgor normal. No rashes or lesions on exposed skin. DATA REVIEWED: LABS: CBC: Recent Labs Component Name 09/04/20 0729 WBC 11.4* HGB 13.3 HCT 40.6 MCV 86.6 BMP: Recent Labs Component Name 09/04/20 0729 NA 138 CL 104 CO2 24 BUN 21 CREATININE 0.7 CALCIUM 8.6 EC10/01/2020 NSR, no acute ST-T wave abnormalities ASSESSMENT & PLAN: 59 year old female with known extensive PAD (carotid and iliacs) with: 1) chest pain - typical chest pain - high pre-test probability of CAD - LHC to eval for high risk lesions - continue/up titrate antianginals: Imdur 60 mg daily Metoprolol 100 mg daily SL NG PRN - further mgmt pending cath results - warning symptoms and when to seek emergency medical care discussed 2) dyslipidemia - patient unable to tolerate high intensity statin - will start rosuvastatin 10 mg, up titrate as able - recheck lipid panel after LHC/after 6-8 weeks back on statin - continue zetia - if unable to tolerate high intensity statin, will consider PCSK9 3) HTN - above goal today - med changes as above - continue losartan 100 mg - continue to monitor 4) PAD - mgmt as above - DAPT - follows with vascular surgery - pletal per vascular 5) TIA - mgmt as above 6) DMII - needs tight control - mgmt per PCP - consider SLGT2 7) tobacco use disorder - focused on how important complete cessation is - patient to set quit date - resume chantix (Rx per PCP) - nicotine lozenges Rx for cravings RTC 2-3 months after LHC, sooner PRN. DO [facility] R MAINTENANCE documented in this encounter Plan of Treatment Upcoming Encounters Date Type Department Care Team (Late st Contact Info) Description 01/19/2025 11:30 AM WIRER MAINTENANCE Procedure visit [facility] - Urology [address] [facility] [facility] [address] [place] [id number] Jose Oliver MD [facility] [place] [id number] documented as of this encounter Goals Goal [...] Procedure Name Priority Date/Time Associated Diagnosis Comments PT-INR Routine 10/21/2020 8:12 AM WIRER MAINTENANCE Essential (primary) hypertension Stable angina pectoris CBC W AUTO DIFFERENTIAL Routine 10/21/2020 8:12 AM WIRER MAINTENANCE Essential (primary) hypertension Stable angina pectoris BASIC METABOLIC PANEL (CALCIUM TOTAL) Routine 10/21/2020 8:12 AM WIRER MAINTENANCE Essential (primary) hypertension Stable angina pectoris PROC EKG IN CLINIC Routine 10/01/2020 9: 43 AM WIRER MAINTENANCE Essential (primary) hypertension documented in this encounter Results * CCL CARDIAC CATH LEFT (10/24/2020 10:29 AM WIRER MAINTENANCE) Anatomical Region Laterality Modality Chest X-Ray Angiograph y Narrative 11/05/2020 4:10 PM WIRER MAINTENANCE [facility] Cardiac Catheterization Procedure Note Patient: Rody Zaidi Age: [age] year old Date of : 1960 Date of Admission: 10/24/2020 Procedure Date: 10/24/20 FELLOW / DATA STORAGE SPECIALIST: Mart Clinton ATTENDING PHYSICIAN: Dr. Deven Cook. [...] had chest pain with dyspnea. Coming for [facility] for evaluation. Also reported abnormal test in past but no image or report available. Per outside business management associate Stress test done in 01/2020 was clinically [...] evaluation, please review the evaluation forms in Epic. For details on monitored clinical parameters during the intra-service sedation time, please review the procedure nurse documentation in [facility]. Total sedation administered as follows: ??25 [...] Deven Gonzalez MD Monica Quijano MD CARDIAC WEIGHT LOSS CENTRE MANAGER RA DIANT * PT-INR (10/21/2020 8:12 AM WIRER MAINTENANCE) INR 1.0 [facility] Comment: Reference Range ? 0.9-1.1 Moderate-intensity Warfarin Therapy 2.0-3.0 Higher-intensity Warfarin Therapy ?? 3.0-4.0 PT 10.1 9.0 - 11.5 sec [facility] Comment: For additional information, please refer to http://education.Vay[employer]/faq/KQO596 (This link is being provided for informational/ educational purposes only.) REPORT COMMENT: FASTING:YES Test Performed at: [facility] ??[phone] GISELE JUSTICE MD Blood BLOOD SPECIMEN / Unknown 10/21/2020 8:12 AM WIRER MAINTENANCE 10/21/2020 8:14 AM WIRER MAINTENANCE Monica Quijano MD LAB - COAGULATION O RDERABLES [address] [address] * CBC WITH DIFFERENTIAL (10/21/2020 8:12 AM WIRER MAINTENANCE) White Blood Cell Count 9.7 3.8 - 10.8 Thousand/u L [facility] RBC 4.85 3.80 - 5.10 Million/uL [facility] Hemoglobin 14.0 11.7 - 15.5 g/dL [facility] Hematocrit 42.0 35.0 - 45.0 % [facility] MCV 86.6 80.0 - 100.0 fL [facility] MCH 28.9 27.0 - 33.0 pg [facility] MCHC 33.3 32.0 - 36.0 g/dL [facility] RDW 13.2 11.0 - 15.0 % [facility] Platelet Count 194 140 - 400 Thousand/u L [facility] MPV 10.2 7.5 - 12.5 fL [facility] Neutrophil Absolute 6198 1500 - 7800 cells/uL [facility] Lymphocytes Absolute 2493 850 - 3900 cells/uL [facility] Absolute Monocytes 786 200 - 950 cells/uL [facility] Eosinophils Absolute 175 15 - 500 cells/uL [facility] Basophils Absolute 49 0 - 200 cells/uL [facility] Granulocytes % 63.9 % [facility] Lymphocytes % 25.7 % [facility] Monocytes % 8.1 % [facility] Eosinophils % 1.8 % [facility] Basophils % 0.5 % [facility] Comment: Test Performed at: [employer] ??[phone] JESSICA MANLEY DO,MPH Blood BLOOD SPECIMEN / Unknown 10/21/2020 8:12 AM WIRER MAINTENANCE 10/21/2020 8:14 AM WIRER MAINTENANCE Mnoica Quijano MD LAB - HEMATOLOGY OR DERABLES Performing Organization Address City/State/[facility] Co de Phone Number [facility] [phone] [place] [address] * (ABNORMAL) BASIC METABOLIC PANEL (CALCIUM TOTAL) (10/21/2020 8:12 AM WIRER MAINTENANCE) Pathologist [facility] Glucose 143(H) 65 - 99 mg/dL [facility] Comment: ? Fasting reference interval For someone without known diabetes, a glucose value >125 mg/dL indicates that they may have diabetes and this should be confirmed with a follow-up test. BUN 24 7 - 25 mg/dL [facility] Creatinine 0.81 0.50 - 1.05 mg/dL [facility] Comment: For patients >49 years of age, the reference limit for Creatinine is approximately 13% higher for people identified as -Senegalese. eGFR by MDRD 80 > OR = 60 mL/min/1 .73m2 [facility] eGFR by MDRD 93 > OR = 60 mL/min/1 .73m2 [facility] BUN/Creatinine Ratio NOT APPLICABLE (calc) [facility] Sodium 140 135 - 146 mmol/L [facility] Potassium 3.8 3.5 - 5.3 mmol/L [facility] Chloride 107 98 - 110 mmol/L [facility] CO2 26 20 - 32 mmol/L [facility] Calcium 9.1 8.6 - 10.4 mg/dL [facility] Comment: Test Performed at: [facility] [address] [place] [address] ??[phone] JESSICA MANLEY DO,MPH Blood BLOOD SPECIMEN / Unknown 10/21/2020 8:12 AM WIRER MAINTENANCE 10/21/2020 8:14 AM WIRER MAINTENANCE Monica Quijano MD LAB - CHEMISTRY ORD ERABLES [facility] [address] [place] [address] * EKG - Clinic Performed (10/01/2020 9:43 AM WIRER MAINTENANCE) Monica Quijano MD ECG ORDERABLES documented in this encounter Visit Diagnoses Diagnosis Essential (primary) hypertension- Primary Unspecified essential hypertension Stable angina pectoris (HCC) Essential (primary) hypertension- Primary Unspecified essential hypertension PAD (peripheral artery disease) (HCC) Unspecified disorders of arteries and arterioles CAD in [place] artery Coronary atherosclerosis of [place] coronary artery documented in this encounter Care Teams Thread Dresser Relationship Specialty Start Date End Date Neva Holden MD [address] [place] [phone] PCP - General 05/06/20 05/25/23 documented as of this encounter
--- OUTSIDE RECORDS SUMMARY | 2024-11-12 04:44 | XMS_ITS | Encounter Summary ---
Author Organization [facility] Address [address] [place] [address] Care Team Providers Care Nicker And Breaker Name Role Phone Neva Holden MD Primary Care Provider Reason for Referral * Radiology Services (Routine) - Closed Specialty Diagnoses / Procedures Referred By Contac t Referred To Contact Vascular Lab Diagnoses PAD (peripheral artery disease) (HCC) Procedures VAS DILEEP ABD DOPPLER AO IVC ILIAC Ruy Zendejas MD [address] [place] [address] [facility] [address] [place] [phone] Referral ID Status Reason Start Date Expiration Date Visits Re quested Visits Authorized [id number] Closed 09/04/2020 09/04/2021 1 1 * Radiology Services (Routine) - Closed Specialty Diagnoses / Procedures Referred By Contac t Referred To Contact Vascular Lab Diagnoses PAD (peripheral artery disease) ([facility]) Procedures VAS ARTERIAL ANKLE ARM INDEX Ruy Zendejas MD [address] [place] [address] [facility] [place] [address] Referral ID Status Reason Start Date Expiration Date Visits Re quested Visits Authorized [id number] Closed 09/04/2020 09/04/2021 1 1 * Radiology Services (Routine) - Closed Specialty Diagnoses / Procedures Referred By Contac t Referred To Contact Interventional Radiology Diagnoses PAD (peripheral artery disease) (HCC) Procedures IR ANGIOGRAM LEFT LEG Kendrick Tao MD [address] [facility]L [place] [address] [facility] [address] [place] [address] Referral ID Status Reason Start Date Expiration Date Visits Re quested Visits Authorized [id number] Closed 08/20/2020 11/22/2020 1 1 Reason for Visit * Radiology Services (Routine) - Closed Specialty Diagnoses / Procedures Referred By Contac t Referred To Contact Interventional Radiology Diagnoses PAD (peripheral artery disease) (HCC) Procedures IR ANGIOGRAM LEFT LEG Kendrick Tao MD [address] [facility] [address] [place] [address] [facility] [address] [place] [address] Referral ID Status Reason Start Date Expiration Date Visits Re quested Visits Authorized [id number] Closed 08/20/2020 11/22/2020 1 1 Encounter Details Date Type Department Care Team (Latest Contact Info) Description 09/04/2020 6:53 AM CDT - 09/04/2020 3:10 PM CDT Hospital Encounter [facility] [address] [place] [address] Kendrick Tao MD [address] [facility] [address] [place] [id number] [facility] Discharge Disposition: Home or Self Care Social History Tobacco Use Types Packs/Day Years Used Date Smoking Tobacco: Every Day Cigarettes 0.5 40 Smokeless Tobacco: Never Tobacco Cessation:Ready to Q uit: Yes; Counseling Given: Yes Alcohol Use Standard Drinks/Week Comments No 0 (1 standard drink = 0.6 oz pur e alcohol) Sex and Gender Information Value Date Recorded Sex Assigned at Not on file Gender Identity Not on file Sexual Orientation Not on file documented as of this encounter Last Filed Vital Signs Vital Sign Reading Time Taken Comments Blood Pressure 115/83 09/04/2020 2:35 PM CDT Pulse 91 09/04/2020 2:35 PM CDT Temperature 36.4 ??C (97.6 ??F) 09/04/2020 7:45 AM CD T Respiratory Rate 16 09/04/2020 2:35 PM CDT Oxygen Saturation 96% 09/04/2020 2:35 PM CDT Inhaled Oxygen Concentration - - Weight 96.6 kg (213 lb) 09/04/2020 7:16 AM CDT Height 160 cm (5' 3 ) 09/04/2020 7:16 AM CDT Body Mass Index 37.73 09/04/2020 7:16 AM CDT documented in this encounter Medications at Time [...] evening meal 12/27/2016 vitamin D, ergocalciferol, (DRISDOL) [address]2413 UNITS capsule Take 1 (one) capsule by mouth every 7 days 01/29/2019 albuterol (PROVENTIL;VENTOLIN) (2.5 MG/3ML) 0.083% nebulizer solution 09/11/2016 albuterol HFA (VENTOLIN HFA) 108 (90 BASE) MCG/ACT inhaler 09/20/2017 11/03/2021 ALPRAZolam (XANAX) 1 MG tabletIndications:Anx iety Take 1 tablet by mouth 3 times daily as needed for Anxiety Reasons: Feeling Anxious 90 tablet 2 08/21/2020 11/12/2020 aspirin EC (ECOTRIN) 325 MG tablet 12/15/2015 01/11/2023 budesonide-formoterol (SYMBICORT) 80-4.5 MCG/ACT inhaler 06/23/2017 07/30/2021 cetirizine (ZYRTEC) 10 MG tablet cetirizine 10 mg tablet 12/08/2021 cilostazol (PLETAL) 100 MG tablet Take 100 mg by mouth 2 times daily 02/21/2020 09/01/2021 clopidogrel (PLAVIX) 75 MG tablet Take 1 tablet by mouth once daily 90 tablet 09/05/2020 12/08/2021 cyclobenzaprine (FLEXERIL) 10 MG tablet TK 1 T PO TID PRN 07/01/2020 12/08/2021 ezetimibe (ZETIA) 10 MG tablet Take 10 mg by mouth once daily 08/19/2020 12/08/2021 FLUoxetine (PROZAC) 40 MG capsuleIndications:Kyrie smith Depressive Disorder Take 1 capsule by mouth once daily for 90 days Reasons: Major Depressive Disorder 30 capsule 2 08/21/2020 11/19/2020 fluticasone propionate (FLONASE) 50 MCG/ACT nasal spray fluticasone propionate 50 mcg/actuation nasal spray,suspension 2019 12/08/2021 FUROSEMIDE PO Take 40 mg by mouth once daily 06/10/2021 HYDROcodone-acetamino phen (NORCO) 10-325 MG tablet Take 1 tablet by mouth 2 times daily 5/325 mg 08/28/2020 03/23/2022 hydrocortisone, rectal, (ANUSOL-HC) 2.5 % creamIndications:Inte rnal hemorrhoids Insert into the rectum 2 times daily 2 tube 3 08/29/2020 06/10/2021 ibuprofen (MOTRIN) 600 MG tablet ibuprofen 600 mg tablet TAKE 1 TABLET BY MOUTH THREE TIMES DAILY 09/01/2021 isosorbide mononitrate CR 24hr (IMDUR) 30 MG tablet 10/28/2016 020 losartan (COZAAR) 100 MG tablet 02/05/2019 12/08/2021 meloxicam (MOBIC) 15 MG tablet meloxicam 15 mg tablet 10/03/2020 metoprolol succinate XL 24hr (TOPROL XL) 25 MG tablet 10/28/2016 10/01/2020 nitroGLYCERIN (NITROSTAT) 0.4 MG tablet 11/06/2016 12/08/2021 omeprazole EC (PRILOSEC OTC) 20 MG tablet 12/15/2015 09/01/2021 ondansetron, disintegrating, (ZOFRAN ODT) 4 MG tablet DISSOLVE 1 TABLET IN MOUTH EVERY 6 TO 8 HOURS NEEDED FOR NAUSEA 07/25/2020 09/01/2021 potassium chloride (KLOR-CON M) 20 MEQ tablet Take 10 mEq by mouth once daily 09/25/2017 03/17/2022 predniSONE (DELTASONE) 10 MG tablet TK 1 T PO QD 03/21/2020 10/24/2020 varenicline (CHANTIX STARTING MONTH ) 0.5 MG X 11 & 1 MG X 42 tablets FPD UTD 12/25/2019 06/25/2021 documented as of this encounter Progress Notes * Josselyn Regan RN - 09/04/2020 2:45 PM CDT Bedrest period complete- pt dangled at bedside and ambulated to bathroom pt tolerated well without complaints- dressing to dileep groin remained dry and intact-pedal pulses intact. Pt received prn Zofran and no longer complained of any nausea- bolus IV fluids complete- pt tolerated well. Teaching discharge instructions pt voiced good understanding- pt ate 75% of regular diet. * Josselyn Regan RN - 09/04/2020 1:04 PM CDT Updated Md with patients complaints - see orders. * Josselyn Regan RN - 09/04/2020 12:57 PM CDT Prns given to patient who is now complaining of nausea and is now asking for her home lauren Adorno paged waiting for call back.. will follow. * Jeanna Mitchell RN - 09/04/2020 11:00 AM CDT Pt in recovery, monitors re-attached to pt, and report given to ADONAY Arcos. * Jeanna Mitchell RN - 09/04/2020 10:42 AM CDT Gauze and tegaderm dressings placed to bilateral groin sites, both of which remain C, D, and I. Pt to be taken off table and taken to recovery. Report to be given at bedside. * Jeanna Mitchell RN - 09/04/2020 10:35 AM CDT Procedure completed, pt tolerated moderately well. Pt has Mynx closure device to bilateral groin sites. Manual pressure also being held. Pt to be taken to recovery for further monitoring. BP elevatedat this time, pt upset and C/O back pain from laying on procedure table. Pt states she is also having some slight CP, and troponin to be drawn, along with EKG in recovery. Pt also to receive 1L NS over [address] Zendejas, and all orders to be placed. Pt to lay flat for 4 hours post procedure dueto groin closures. Other than elevated BP, all other VS remain stable as charted. * Kely Oro RN - 09/04/2020 8:00 AM CDT Appt confirmed with pt. * Josselyn Regan RN - 09/04/2020 8:00 AM CDT Gold colored necklace given to family member at pts request. documented in this encounter H&P Notes * Ruy Zendejas MD - 09/04/2020 8:11 AM CDT This patient? s prior H&P below dated 08/08/2020 was reviewed, the patient was examined and no change has occurred in the patient's condition since the prior H&P was completed. In brief, patient with BLE short distance claudication worse on the L. Has hx of bilateral KALANI stents placed at an OSH. Recent vascular labs showing severe stenosis in the L KALANI distal to the stent. Plan for angiogram today with possible intervention. Consent obtained. Attending: Dr. Amber Zendejas MD Integrated Vascular Surgery Resident, PGY-4 09/04/2020 8:12 AM Vascular Surgery History and Physical ?? Name: Rody Zaidi : 1960 Date of Service: 08/08/20 Chief Complaint: 59-year-old female who presents with calves hard as bricks ?? HPI: Rody Zaidi is a very pleasant 59-year-old female with a history of PVD, HTN, hypercholesterolemia, T2DM, COPD, asthma, osteoporosis, stroke (2013), and bilateral iliac stent placement (2015) who presents with increasingly symptomatic PVD and claudication in her legs. Left leg is worse than right. Within walking 50 ft, experiences SOB, dizziness, pain and cramping in calves bilaterally. She hassmoked since age 16. She also reports pain in groin. ?? Past Medical History No past medical history on file. ?? Past Surgical History Past Surgical History: Procedure Laterality Date ??? Cholecystectomy ?? 2007 ??? HX C SECTION CLASSIC ?? 1989 ??? HX CAROTID ENDARDECTOMY ?? 2014 ??? HX TUBAL LIGATION ?? 1989 ??? AL FOOT/TOES SURGERY PROC UNLISTED ? Tympanostomy ?? 2014 ? Family History Family History Problem Relation Name Age of Onset ??? Depression Mother ? Alcohol abuse Father ? Depression Sister ? Thyroid Disease Neg Hx ? Social History ?? Socioeconomic History ??? Marital status: Single ? Spouse name: Not on file ??? Number of children: Not on file ??? Years of education: Not on file ??? Highest education level: Not on file Occupational History ??? Not on file Social Needs ??? Financial resource strain: Not on file ??? Food insecurity ? Worry: Not on file ? Inability: Not on file ??? Transportation needs ? Medical: Not on file ? Non-medical: Not on file Tobacco Use ??? Smoking status: Current Every Day Smoker ??? Smokeless tobacco: Never Used Substance and Sexual Activity ??? Alcohol use: No ??? Drug use: Yes ? Types: Marijuana ??? Sexual activity: Not on file Lifestyle ??? Physical activity ? Days per week: Not on file ? Minutes per session: Not on file ??? Stress: Not on file Relationships ??? Social connections ? Talks on phone: Not on file ? Gets together: Not on file ? Attends rastafarian service: Not on file ? Active member of club or organization: Not on file ? Attends meetings of clubs or organizations: Not on file ? Relationship status: Not on file ??? Intimate partner violence ? Fear of current or ex partner: Not on file ? Emotionally abused: Not on file ? Physically abused: Not on file ? Forced sexual activity: Not on file Other Topics Concern ??? Not on file Social History Narrative ?? 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 ?? Date last employed: 30 years ago ? Allergies Allergen Reactions ??? Penicillins Other and Urticaria ? unknown Reaction: Hives, ? Risperidone Other ? Reported her face getting swollen ??? Haloperidol Other ? unknown ??? Ketorolac Tromethamine Unknown ??? Penicillin G Other ? Medications ?? Current Outpatient Medications: ??? albuterol (PROVENTIL;VENTOLIN) (2.5 [...] MG tablet, , Disp: , Rfl: ??? beclomethasone dipropionate (QVAR) 40 MCG/ACT inhaler, , Disp: , Rfl: ??? budesonide-formoterol (SYMBICORT) 80-4.5 MCG/ACT inhaler, , Disp: , Rfl: ??? cromolyn (CROLOM) 4 % ophthalmic solution, Instill 1 drop into both eyes 3 times daily, Disp: 10 mL, Rfl: 4 ??? FLUoxetine (PROZAC) 40 MG capsule, Take 1 capsule by mouth once daily Reasons: Major DepressiveDisorder, Disp: 30 capsule, Rfl: 2 ??? isosorbide mononitrate CR 24hr (IMDUR) 30 MG tablet, , Disp: , Rfl: ??? losartan (COZAAR) 100 MG tablet, , Disp: , Rfl: ??? metFORMIN (GLUCOPHAGE) 500 MG tablet, , Disp: , Rfl: ??? metoprolol succinate XL 24hr (TOPROL XL) 25 MG tablet, , Disp: , Rfl: ??? montelukast (SINGULAIR) 10 MG tablet, , Disp: , Rfl: ??? nitroGLYCERIN (NITROSTAT) 0.4 MG tablet, , Disp: , Rfl: ??? omeprazole EC (PRILOSEC OTC) 20 MG tablet, , Disp: , Rfl: ??? potassium chloride (KLOR-CON M) 20 MEQ tablet, , Disp: , Rfl: ??? traZODone (DESYREL) 50 MG tablet, Take 1 tablet by mouth at bedtime Reasons: Trouble Sleeping, Disp: 30 tablet, Rfl: 2 ??? vitamin D, ergocalciferol, (DRISDOL) 67362 UNITS capsule, , Disp: , Rfl: ? Review of Systems: Constitutional: Negative for fevers, chills Eyes: Negative Ears, nose, mouth, and throat: Negative Cardiovascular: Negative Pulmonary: Negative Gastrointestinal: Negative Genitourinary: Negative Skin: Negative Hematologic/lymphatic: Negative Musculoskeletal:See HPI Neurological: Negative Behavioral/Psych: Negative Endocrine: Negative The rest of the review of systems was negative. ? Physical Exam: Vitals Vitals: ?? 08/08/20 1010 BP: 114/74 Pulse: 95 Temp: 97.1 ??F (36.2 ??C) SpO2: 96% Weight: 209 lb (94.8 kg) Height: 5' 3 (1.6 m) ?? General Appearance: NAD, conversant HEENT: NCAT, MMM, EOMI. Cardiovascular: RRR Respiratory: No increased work of breathing on RA. CTAB Musculoskeletal: Moving all extremities. No clubbing, cyanosis or edema. Palpable bilateral radial pulses. Palpable femoral pulses bilaterally. Dopplerable right DP and PT. Dopplerable left DP and PT Skin: Warm and well perfused Neuro: No focal deficits Psych: Normal affect ?? Labs: Recent Labs: No results for input(s): WBC, HGB, HCT, PLT in the last 27771 hours. No results for input(s): NA, K, CL, CO2, BUN, CREATININE, GLU in the last 03145 hours. No results for input(s): PT, PTT, INR in the last 53166 hours. ?? Imaging: Prior imaging in June 2020 showed increased velocity in left leg after stent in left KALANI. Left KALANI proximal 71 cm/s, distal 508 cm/s. Decreased KENZIE in left extremity with recent decline. ?? Assessment/ Plan: Rody Zaidi is a very pleasant 59-year-old female with a history of PVD, HTN, hypercholesterolemia, T2DM, COPD, asthma, osteoporosis, stroke (2013), and bilateral iliac stent placement (2015) who presents with increasingly symptomatic PVD and claudication in her legs. Assessment is PVD with KALANI [place] barajas. Findings supported by history, physical exam findings, and lab results. ?? Plan is to perform outpatient angiography in order to detect location and severity of stenosis. Possible stent placement based on results from angiography. ?? Taiwo Trotter Medical Student [facility] Pager: [phone] August 08, 2020 10:59 AM documented in this encounter Procedure Notes * Ruy Zendejas MD - 09/04/2020 2:08 PM CDT Post Sedation Note Rody Zaidi is a 59 year old female born on 1960 Unit that procedure is to be performed: IR Pre-Procedure Diagnosis: Peripheral vascular disease Procedure: Aortoiliofemoral angiogram; Left lower extremity angiogram; Left common iliac artery stent placement Post Procedure Diagnosis: Peripheral vascular disease; Occluded left common iliac artery stent Complications: none Monitoring: Monitoring consisted of: heart rate, monitor and storage bin tender, continuous pulse oximetry, level of consciousness and IV access. Response: Vital signs stable. Patient Status Post Procedure: Activity: Able to move four extremities voluntarily on command = 2 Respiration: Able to breathe deeply and cough freely = 2 Circulation: Blood pressure +/- 20mm Hg of normal = 2 Consciousness: Fully awake =2 Color: 2 - color is WNL Cruzito Score: 10 Temperature: Normalthermic Pain: 5 Post sedation nausea & vomiting present: nausea Post-sedation hydration status Is adequate: Yes Total Physician Drug Administration / Monitoring Time: 100 minutes. Patient was monitored during recovery and returned to pre-procedure baseline. Discharge plan: Home * Ruy Zendejas MD - 09/04/2020 8:14 AM CDT Pre-Sedation Note Rody Zaidi is a 59 year old female born on 1960 Unit where the procedure was performed: IR H&P I have reviewed this H&P written on 08/08/2020 and there are no significant changes since the time of the exam. Pertinent review of system Cardiac - no chest pain or dyspnea on exertion Resp - no cough, shortness of breath, or wheezing Patient status - alert Allergies Allergies Allergen Reactions ??? Penicillins Other and Urticaria unknown Reaction: Hives, ??? Risperidone Other Reported her face getting swollen ??? Haloperidol Other unknown ??? Ketorolac Tromethamine Unknown ??? Penicillin G Other Home Meds Medications Prior to Admission Medication Sig Dispense Refill ??? albuterol (PROVENTIL;VENTOLIN) (2.5 MG/3ML) 0.083% nebulizer solution ??? albuterol HFA (VENTOLIN HFA) 108 (90 BASE) MCG/ACT inhaler ??? ALPRAZolam (XANAX) 1 MG tablet Take 1 tablet by mouth 3 times daily as needed for Anxiety Reasons: Feeling Anxious 90 tablet 2 ??? aspirin EC (ECOTRIN) 325 MG tablet ??? budesonide-formoterol (SYMBICORT) 80-4.5 MCG/ACT inhaler ??? cetirizine (ZYRTEC) 10 MG tablet cetirizine 10 mg tablet ??? cilostazol (PLETAL) 100 MG tablet Take 100 mg by mouth 2 times daily ??? cromolyn (CROLOM) 4 % ophthalmic solution Instill 1 drop into both eyes 3 times daily 10 mL 4 ??? cyclobenzaprine (FLEXERIL) 10 MG tablet TK 1 T PO TID PRN ??? EPINEPHrine (EPIPEN) 0.3 MG/0.3ML auto-injector pen epinephrine 0.3 mg/0.3 mL injection, auto-injector ??? ezetimibe (ZETIA) 10 MG tablet Take 10 mg by mouth once daily ??? FLUoxetine (PROZAC) 40 MG capsule Take 1 capsule by mouth once daily for 90 days Reasons: MajorDepressive Disorder 30 capsule 2 ??? fluticasone propionate (FLONASE) 50 MCG/ACT nasal spray fluticasone propionate 50 mcg/actuationnasal spray,suspension ??? FUROSEMIDE PO Take 40 mg by mouth once daily ??? HYDROcodone-acetaminophen (NORCO) 10-325 MG tablet ??? hydrocortisone, rectal, (ANUSOL-HC) 2.5 % cream Insert into the rectum 2 times daily 2 tube 3 ??? ibuprofen (MOTRIN) 600 MG tablet ibuprofen 600 mg tablet TAKE 1 TABLET BY MOUTH THREE TIMES DAILY ??? isosorbide mononitrate CR 24hr (IMDUR) 30 MG tablet ??? losartan (COZAAR) 100 MG tablet ??? meloxicam (MOBIC) 15 MG tablet meloxicam 15 mg tablet ??? metFORMIN (GLUCOPHAGE) 500 MG tablet ??? metoprolol succinate XL 24hr (TOPROL XL) 25 MG tablet ??? nitroGLYCERIN (NITROSTAT) 0.4 MG tablet (Patient not taking: Reported on 09/04/2020) ??? omeprazole EC (PRILOSEC OTC) 20 MG tablet ??? ondansetron, disintegrating, (ZOFRAN ODT) 4 MG tablet DISSOLVE 1 TABLET IN MOUTH EVERY 6 TO 8 HOURS NEEDED FOR NAUSEA ??? potassium chloride (KLOR-CON M) 20 MEQ tablet ??? predniSONE (DELTASONE) 10 MG tablet TK 1 T PO QD ? ? varenicline (CHANTIX STARTING MONTH ) 0.5 MG X 11 & 1 MG X 42 tablets FPD UTD ??? vitamin D, ergocalciferol, (DRISDOL) 95854 UNITS capsule Patient Active Problem List: GIOVANNY (generalized anxiety disorder) Obesity Nocturia Personal history of transient ischemic attack (TIA), and cerebral infarction without residual deficits Occlusion and stenosis of bilateral carotid arteries Chronic pain syndrome Type 2 diabetes mellitus with diabetic polyneuropathy Insomnia due to medical condition Gastro-esophageal reflux disease without esophagitis Primary osteoarthritis of one knee Other asthma Sleep related leg cramps Other forms of angina pectoris Essential (primary) hypertension Hypersomnia due to medical condition Chronic obstructive pulmonary disease Personal history of traumatic brain injury Restless legs syndrome Obstructive sleep apnea Cervicalgia Other chronic pain MDD (recurrent major depressive disorder) in remission Vitals: 09/04/20 0716 Weight: 213 lb (96.6 kg) Height: 5' 3 (1.6 m) Status Test none Anesthesis History past general anesthesia without complications History of airway problems: none Expected Level: Moderate Sedation Indication: Sedation is required to allow for angiogram. Consent: Risks, benefits and alternatives were discussed with patient and consent for procedure wasobtained. PO Intake: Regular Meal > 8 hours ASA Class: Class 3 - Severe Systemic Disease, Definite Functional Limitations Medication: Conscious Sedation. 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 Procedure visit [facility] - Urology [address] [place] [address] [address] [place] [address] Jose Oliver MD [address] OF UROLOGIC SURGERY [place] [phone] documented as of this encounter Goals Goal [...] Name Priority Date/Time Associated Diagnosis Comments CARDIAC EKG ORDER 09/05/2020 1:1 5 PM CDT TROPONIN I STAT 09/04/2020 11:24 AM CDT Chest pain, unspecified type EKG 12-LEAD STAT 09/04/2020 11:16 AM CDT Chest pain, unspecified type IR ANGIOGRAM LEFT LEG Routine 09/04/2020 10:50 AM CDT PAD (peripheral artery disease) (HCC) GLUCOSE - POINT OF CARE Routine 09/04/2020 7:32 AM CDT CBC W/O DIFFERENTIAL Routine 09/04/2020 7:29 AM CDT PAD (peripheral artery disease) (HCC) BASIC METABOLIC PANEL (CALCIUM TOTAL) Routine 09/04/2020 7:29 AM CDT PAD (peripheral artery disease) (HCC) documented in this encounter Results * VAS ARTERIAL ANKLE ARM INDEX (10/22/2020 9:03 AM DIMENSION MILL WORKER) Anatomical Region Laterality Modality Ankle / Foot, Upper Extremity In travascular Ultrasound 10/22/2020 8:16 AM DIMENSION MILL WORKER Narrative Procedure Note Eric Costa MD - 10/22/2020 Ruy Zendejas MD VASCULAR LAB ORDERAB LES * VAS DILEEP ABD DOPPLER AO IVC ILIAC (10/22/2020 9:02 AM DIMENSION MILL WORKER) Anatomical Region Laterality Modality Pelvis, Abdomen Intravascular Ul trasound 10/22/2020 8:27 AM DIMENSION MILL WORKER Narrative Procedure Note Eric Costa MD - 10/22/2020 Ruy Zendejas MD VASCULAR LAB ORDERAB LES * CARDIAC EKG ORDER (09/05/2020 1:15 PM CDT) Narrative 09/05/2020 1:15 PM CDT Ordered by an unspecified provider. Scanned Document CARDIAC SERVICES ORD ERABLES * TROPONIN I (09/04/2020 11:24 AM CDT) [facility] Troponin I 0.025 <0.032 ng/mL 09/04/2020 12:05 PM CDT [facility] Blood BLOOD SPECIMEN / Unknown Venipuncture / Unknown 09/04/2020 11:24 AM CDT 09/04/2020 11:34 AM CDT Ruy Zendejas MD LAB - CHEMISTRY ORDE [facility] [address] [place] [id number], [facility] [phone] * EKG 12-LEAD (09/04/2020 11:16 AM CDT) Pathologist [facility] Ventricular Rate 80 BPM [facility] Atrial Rate 80 BPM [facility] M[facility] P-R Interval 142 ms [facility] QRS Duration ms 86 ms [facility] M[facility] Q-T Interval ms 392 ms [facility] M[facility] QTC Calculation (Bezet) 452 ms [facility] M[facility] Calculated P [place] 70 degrees [facility] MUSE Calculated R [place] 50 degrees [facility] M[facility] Calculated T [place] 34 degrees [facility] M[facility] Interpretation EKG NORMAL SINUS RHYTHM NORMAL ECG NO PREVIOUS ECGS AVAILABLE Confirmed by Jg Casey ([id number]) on 10/02/2020 11:20:55 AM [facility] M[facility] 09/04/2020 11:1 6 AM CDT 10/02/2020 11:20 AM D[employer]ENSION MILL WORKER Ruy Zendejas MD ECG ORDERABLES [facility] * IR ANGIOGRAM LEFT LEG (09/04/2020 [...] stent placement x2 ATTENDING: Kendrick Tao MD MATERIALS HANDLING EQUIPMENT OPERATOR: Ruy Zendejas MD ANESTHESIA: Moderate conscious sedation [...] sheath was then exchanged for a 5 Congolese sheath over the provided J-wire. A Glidewire [...] sheath was then exchanged for a 5 Congolese sheath over a J-wire. A Glidewire and angled glide catheter were then used to attempt crossing the occluded left common iliac artery from below. However, this was initially unsuccessful as it had appeared that the wire and catheter were tracking into a dissection plane in the [place] distal left common iliac artery. Crossing from [...] For increased support, the left groin 5 Congolese sheath was exchanged for a longer 5 Congolese sheath. The back of the Glidewire and [...] was withdrawn and the left groin 5 Congolese sheath was exchanged for a 7 Congolese sheath. In order to prevent jailing of the right common iliac artery and stent, the decision was made to place a balloon in the right common iliac artery and stent with plans to insufflate this in tandem with deployment of the new stent on the left. The wire on the right was exchanged for an Amplatz wire in the right groin 5 Congolese sheath was exchanged for a 6 Congolese sheath. A 9 mm x 40 mm Logan balloon was then advanced via the right [...] necessitating further intervention. The left groin 7 Congolese sheath was exchanged for a short 7 Congolese sheath. The wires were withdrawn and Mynx [...] stent placement x2 ATTENDING: Kendrick Tao MD MATERIALS HANDLING EQUIPMENT OPERATOR: Ruy Zendejas MD ANESTHESIA: Moderate conscious sedation [...] micropuncture sheath was then exchangedfor a 5 Congolese sheath over the provided J-wire. A Glidewire [...] sheath was then exchanged for a 5 Congolese sheath over a J-wire. AGlidewire and angled glide catheter were then used to attempt crossing theoccluded left common iliac artery from below. However, this was initially unsuccessful as it had appeared that the wire and catheter were tracking into a dissection plane in the [place] distal left common iliac artery. Crossing from [...] sheath was exchanged for a longer 5 Cong[place] sheath. The back of the Glidewire and [...] was withdrawn and the left groin 5 Congolese sheath was exchanged for a 7 Congolese sheath. In order to prevent jailing of theright common iliac artery and stent, the decision was made to place a balloonin the right common iliac artery and stent with plans to insufflate this in tandem with deployment of the new stent on the left. The wire on theright was exchanged for an Amplatz wire in the right groin 5 Congolese sheath was exchanged for a 6 Congolese sheath. A 9 mm x 40 mm Logan balloon was then advanced via the right [...] necessitating further intervention. The left groin 7 Congolese sheath was exchanged for a short 7 Congolese sheath. The wires were withdrawn and Mynx [...] Ruy Zendejas on 09/05/2020 8:39 AM . IDr. KENDRIKC M.D. have personally reviewed and interpreted this examination/study. This report was electronically signed by KENDRICK TAO M.D. on 09/06/2020 11:05 AM . Kendrick Tao MD IR ORDERABLES * (ABNORMAL) GLUCOSE - POINT OF CARE (09/04/2020 7:32 AM CDT) [facility] Glucose WB/POC 189(H) 70 - 115 mg/dL 09/04/2020 7:37 AM [facility] Specimen Type Venous 09/04/2020 7:37 AM [facility] Blood BLOOD SPECIMEN / Unknown 09/04/2020 7:32 AM CDT 09/04/2020 7:37 AM CDT Kendrick Tao MD LAB - POINT OF CARE ORDERABLES Performing Organization Address City/State/[facility] Co de Phone Number [facility] [address] [place] [address], [facility] [phone] * (ABNORMAL) BASIC METABOLIC PANEL (CALCIUM TOTAL) (09/04/2020 7:29 AM CDT) [facility] BUN 21 7 - 26 mg/dL 09/04/2020 8:08 AM [facility] Creatinine 0.7 0.6 - 1.2 mg/dL 09/04/2020 8:08 AM [facility] Sodium 138 136 - 145 mmol/L 09/04/2020 8:08 AM [facility] Potassium 3.8 3.5 - 4.5 mmol/L 09/04/2020 8:08 AM [facility] Chloride 104 98 - 107 mmol/L 09/04/2020 8:08 AM [facility] CO2 24 22 - 29 mmol/L 09/04/2020 8:08 AM [facility] Glucose 181(H) 70 - 115 mg/dL 09/04/2020 8:08 AM [facility] Calcium 8.6 8.4 - 10.2 mg/dL 09/04/2020 8:08 AM [facility] Anion Gap 14 8 - 18 09/04/2020 8:08 AM [facility] BUN/Creatinine Ratio 30(H) 7 - 23 09/04/2020 8:08 AM CDT [facility] Osmolality Calculated 294 270 - 300 mOsm/kg 09/04/2020 8:08 AM CDT [facility] eGFR >60 >60 mL/min/1.7 3 m2 09/04/2020 8:08 AM [facility] Blood BLOOD SPECIMEN / Unknown Venipuncture / Unknown 09/04/2020 7:29 AM CDT 09/04/2020 7:38 AM CDT Ruy Zendejas MD LAB - CHEMISTRY BASSAM CONTRERAS [facility] [address] [place] [address], [facility] [phone] * (ABNORMAL) CBC W/O DIFFERENTIAL (09/04/2020 7:29 AM CDT) WBC 11.4(H) 3.5 - 10.5 10? 3 /uL 09/04/2020 8:10 AM [facility] RBC 4.69 3.90 - 5.00 10? 6 /uL 09/04/2020 8:10 AM [facility] Hemoglobin 13.3 12.0 - 15.5 g/dL 09/04/2020 8:10 AM [facility] Hematocrit 40.6 35.0 - 45.0 % 09/04/2020 8:10 AM [facility] MCV 86.6 81.0 - 97.0 fL 09/04/2020 8:10 AM [facility] MCH 28.4 28.0 - 34.0 pg 09/04/2020 8:10 AM [facility] MCHC 32.8 32.0 - 36.0 g/dL 09/04/2020 8:10 AM [facility] Platelet Count 192 150 - 400 10? 3 /uL 09/04/2020 8:10 AM T [facility] RDW-SD 42.7 36.0 - 50.0 fL 09/04/2020 8:10 AM [facility] RDW-CV 13.7 11.2 - 14.8 % 09/04/2020 8:10 AM [facility] MPV 10.2 9.3 - 12.8 fL 09/04/2020 8:10 AM CDT [facility] nRBC Absolute 0.00 0 10? 3 /uL 09/04/2020 8:10 AM CDT [facility] nRBC Auto 0.0 0 /100 WBC 09/04/2020 8:10 AM CDT [facility] Blood BLOOD SPECIMEN / Unknown Venipuncture / Unknown 09/04/2020 7:29 AM CDT 09/04/2020 7:38 AM CDT Ruy Zendejas MD LAB - HEMATOLOGY ORD ERABLES [facility] [address] [place] [address], [facility] [phone] documented in this encounter Visit Diagnoses Diagnosis PAD (peripheral artery disease) (HCC)- Primary Unspecified disorders of arteries and arterioles PAD (peripheral artery disease) (HCC) Unspecified disorders of arteries and arterioles Chest pain, unspecified type PAD (peripheral artery disease) (HCC) Unspecified disorders of arteries and arterioles PAD (peripheral artery disease) (HCC) Unspecified disorders of arteries and arterioles documented in this encounter Admitting Diagnoses Diagnosis PAD (peripheral artery disease) (HCC) Unspecified disorders of arteries and arterioles documented in this encounter Administered Medications Inactive Administered Medications - up to 3 most recent administrations Medication Order MAR Action Action Date Dose Rate Site 0.9% NaCl infusion Intravenous, CONTINUOUS PRN, Starting on Wed09/04/20 at 0845, Until Wed09/04/20 at 1108 $ New Bag/Syringe 09/04/2020 8:45 AM CDT 10 mL/hr 10 mL/hr 0.9% NaCl IV Bolus 1,000 mL, at 248.96 mL/hr, Administer over 241 Minutes, ONCE, 1 dose, On Wed09/04/20 at 1130 $ New Bag/Syringe 09/04/2020 11:30 AM CDT 1,000 mL 248.96 mL/hr ALPRAZolam (XANAX) tablet 1 mg 1 mg, Oral, 3 TIMES DAILY PRN, Anxiety, Starting on Wed09/04/20 at 1132, Until Wed09/09/20 at 1546 $ Given 09/04/2020 12:40 PM CDT 1 mg clopidogrel (plaVIX) tablet 300 mg 300 mg, Oral, ONCE, 1 dose, On Wed09/04/20 at 1200 $ Given 09/04/2020 12:40 PM CDT 300 mg fentaNYL (PF) (SUBLIMAZE) injection ONCE PRN, Starting on Wed09/04/20 at 0857, Until Wed09/04/20 at 1025 $ Given 09/04/2020 10:25 AM CDT 50 mcg $ Given 09/04/2020 9:59 AM CDT 50 mcg $ Given 09/04/2020 9:18 AM CDT 50 mcg heparin injection ONCE PRN, Starting on Wed09/04/20 at 0915, Until Wed09/04/20 at 1005 $ Given 09/04/2020 10:05 AM CDT 2,000 Unit s $ Given 09/04/2020 9:15 AM CDT 10,000 Units heparinized saline 2 units/ml infusion Other, CONTINUOUS PRN, Starting on Wed09/04/20 at 0756, Until Wed09/04/20 at 0756 $ New Bag/Syringe 09/04/2020 7:56 AM CDT 1,000 mL iopamidol (ISOVUE 300) 61 % contrast Intra-arterial, ONCE PRN, Starting on Wed09/04/20 at 1301, Until Wed09/04/20 at 1301 $ Given 09/04/2020 1:01 PM CDT 100 mL lidocaine (XYLOCAINE) 1 % injection Subcutaneous, ONCE PRN, Starting on Wed09/04/20 at 0756, Until Wed09/04/20 at 0756 $ Given 09/04/2020 7:56 AM CDT 10 mL See Comments midazolam (VERSED) injection Intravenous, ONCE PRN, Starting on Wed09/04/20 at 0857, Until Wed09/04/20 at 1025 $ Given 09/04/2020 10:25 AM CDT 1 mg $ Given 09/04/2020 9:59 AM CDT 1 mg $ Given 09/04/2020 9:18 AM CDT 1 mg ondansetron (disintegrating) (ZOFRAN ODT) tablet 4 mg 4 mg, Oral, EVERY 6 HOURS PRN, Nausea/Vomiting, Starting on Wed09/04/20 at 1308, Until Wed09/09/20 at 1546, Allow tablet to dissolve on the tongue $ Given 09/04/2020 2:13 PM CDT 4 mg oxyCODONE-acetaminophen (PERCOCET) 5-325 MG tablet 1 tablet 1 tablet, Oral, EVERY 4 HOURS PRN, Moderate Pain, Severe Pain, Starting on Wed09/04/20 at 1108, Until Wed09/09/20 at 1546 $ Given 09/04/2020 12:23 PM CDT 1 tablet documented in this encounter Active and Recently Administered Medications Times are shown in CDT. Scheduled Medication Order 09/02/2020 09/03/2020 09/04/2020 0.9% NaCl IV Bolus (COMPLETED) 1,000 mL, at 248.96 mL/hr, Administer over 241 Minutes, ONCE, 1 dose, On Wed09/04/20 at 1130 1130 ($ New Bag/Syri nge - Provider: Josselyn Regan RN)1531 (Due: Stopped - Provider: Josselyn Regan RN) clopidogrel (plaVIX) tablet 300 mg (COMPLETED) 300 mg, Oral, ONCE, 1 dose, On Wed09/04/20 at 1200 1240 ($ Given - Prov ider: Josselyn Regan RN) PRN Medication Order 09/02/2020 09/03/2020 09/04/2020 0.9% NaCl infusion (CANCELED) Intravenous, CONTINUOUS PRN, Starting on Wed09/04/20 at 0845, Until Wed09/04/20 at 1108 0845 ($ New Bag/Syri nge - Provider: Jeanna Mitchell RN - Comment: for use during procedure) ALPRAZolam (XANAX) tablet 1 mg 1 mg, Oral, 3 TIMES DAILY PRN, Anxiety, Starting on Wed09/04/20 at 1132, Until Wed09/09/20 at 1546 1240 ($ Given - Prov ider: Josselyn Regan RN) fentaNYL (PF) (SUBLIMAZE) injection (COMPLETED) ONCE PRN, Starting on Wed09/04/20 at 0857, Until Wed09/04/20 at 1025 0857 ($ Given - Prov ider: Jeanna Mitchell RN)0918 ($ Given - Provider: Jeanna Mitchell, ADONAY)0959 ($ Given - Provider: Jeanna Mitchell, RN)1025 ($ Given - Provider: Jeanna Mitchell, RN) heparin injection (COMPLETED) ONCE PRN, Starting on Wed09/04/20 at 0915, Until Wed09/04/20 at 1005 0915 ($ Given - Prov ider: Jeanna Mitchell, ADONAY)1005 ($ Given - Provider: Jeanna Mitchell RN) heparinized saline 2 units/ml infusion (COMPLETED) Other, CONTINUOUS PRN, Starting on Wed09/04/20 at 0756, Until Wed09/04/20 at 0756 0756 ($ New Bag/Syri nge - Provider: Kendrick Tao MD - Comment: for table) iopamidol (ISOVUE 300) 61 % contrast (COMPLETED) Intra-arterial, ONCE PRN, Starting on Wed09/04/20 at 1301, Until Wed09/04/20 at 1301 1301 ($ Given - Prov ider: Kendrick Tao MD - Comment: used during procedure) lidocaine (XYLOCAINE) 1 % injection (COMPLETED) Subcutaneous, ONCE PRN, Starting on Wed09/04/20 at 0756, Until Wed09/04/20 at 0756 0756 ($ Given - Prov ider: Kendrick Tao MD - Comment: for table) midazolam (VERSED) injection (COMPLETED) Intravenous, ONCE PRN, Starting on Wed09/04/20 at 0857, Until Wed09/04/20 at 1025 0857 ($ Given - Prov ider: Jeanna Mitchell RN)0918 ($ Given - Provider: Jeanna Mitchell RN)0959 ($ Given - Provider: Jeanna Mitchell RN)1025 ($ Given - Provider: Jeanna Mitchell RN) ondansetron (disintegrating) (ZOFRAN ODT) tablet 4 mg 4 mg, Oral, EVERY 6 HOURS PRN, Nausea/Vomiting, Starting on Wed09/04/20 at 1308, Until Wed09/09/20 at 1546, Allow tablet to dissolve on the tongue 1413 ($ Given - Prov ider: Josselyn Regan RN) oxyCODONE-acetaminophen (PERCOCET) 5-325 MG tablet 1 tablet 1 tablet, Oral, EVERY 4 HOURS PRN, Moderate Pain, Severe Pain, Starting on Wed09/04/20 at 1108, Until Wed09/09/20 at 1546 1223 ($ Given - Prov ider: Sandy Carter RN) documented in this encounter Care Teams Nicker And Breaker Relationship Specialty Start Date End Date Neva Holden MD [address] [place] [phone] PCP - General 05/06/20 05/25/23 documented as of this encounter
--- OUTSIDE RECORDS SUMMARY | 2024-11-12 04:44 | XMS_ITS | Encounter Summary ---
Author Organization [facility] Address 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 Procedure visit [facility] - Urology [address] [place] [address] [address] [place] [phone] Jose Oliver MD [address] [facility] [address] [place] [address] documented as of this encounter [...] as of this encounter Visit Diagnoses Diagnosis Need for vaccination Need for prophylactic vaccination and inoculation against unspecified single disease documented in this encounter Care Teams Underground Mine Machinery Mechanic Relationship Specialty Start Date End Date Neva Holden MD [address] [place] [phone] PCP - General 05/06/20 05/25/23 documented as of this encounter
--- OUTSIDE RECORDS SUMMARY | 2024-11-12 04:44 | XMS_ITS | Encounter Summary ---
Author Organization [facility] Address [address] [facility] [place] [address] Care Team Providers Care Indian Trader Name Role Phone Neva Holden MD Primary Care Provider [phone] Reason for Referral * Radiology Services (Routine) - Closed Specialty Diagnoses / Procedures Referred By Nacho brooks Referred To Contact Interventional Radiology Diagnoses PAD (peripheral artery disease) ([facility]) Procedures IR ANGIOGRAM LEFT LEG Kendrick Clark MD [address] DIV [place] [address] [facility] [address] [place] [address] Referral ID Status Reason Start Date Expiration Date Visits Re quested Visits Authorized [id number] Closed 08/20/2020 11/22/2020 1 1 Reason for Visit * Reason Comments Pvd Encounter Details Date Type Department Care Team (Late st Contact Info) Description 08/08/2020 10:15 AM CDT Office Visit [facility] [address] [facility], [place] [address] Kendrick Clark MD [address] [facility] [address] [place] [phone] PAD (peripheral artery disease) (HCC) (Primary Dx) Social History Tobacco Use [...] Sign Reading Time Taken Comments Blood Pressure 114/74 08/08/2020 10:10 AM CDT Pulse 95 08/08/2020 10:10 AM CDT Temperature 36.2 ??C (97.1 ??F) 08/08/2020 10:10 AM C DT Respiratory Rate - - Oxygen Saturation 96% 08/08/2020 10:10 AM CDT Inhaled Oxygen Concentration - - Weight 94.8 kg (209 lb) 08/08/2020 10:10 AM CDT Height 160 cm (5' 3 ) 08/08/2020 10:10 AM CDT Body Mass Index 37.02 08/08/2020 10:10 AM CDT documented in this encounter Patient Instructions * Patient Instructions* Cinthya Jain RN - 08/08/2020 11:00 AM CDT Someone will call you to schedule your angiogram. Please call the office with any questions or concerns. [phone] documented in this encounter Progress Notes * Kendrick Clark MD - 08/08/2020 2:10 PM CDT I have verified the documentation of the medical student including all history, exam, and medical decision-making details. I have personally performed a physical exam and have personally reviewed thedata to support my medical decision-making as outlined in the medical student???s note, and I arrive independently at the same conclusion. In summary, the patient is a 59 year old woman with history of smoking and peripheral arterial disease. She has short distance claudication that has worsened recently and no rest pain or tissue loss.She previously had iliac stents placed at another institution, and vascular labs done demonstrate st enosis of the left iliac artery beyond the stent as well as a drop in the KENZIE bilaterally. She has a weakly palpable pulse on the right. I think given the findings of stenosis, we should consider angiogram to see if there isn't something we can't open up to restore blood supply to her leg. Otherwise, she would be a risk of stent occlusion. I've recommended smoking cessation and walking regimen. We will get this scheduled. Kendrick Clark MD 08/08/2020 2:10 PM documented in this encounter H&P Notes * Taiwo Trotter - 08/08/2020 10:57 AM CDT Images from the original note were not included. Vascular Surgery History and Physical Name: Rody Zaidi : 1960 Date of Service: 08/08/20 Chief Complaint: 59-year-old female who presents with calves hard as bricks HPI: Rody Zaidi is a very pleasant [...] 15. She also reports pain in groin. No past medical history on file. Past Surgical History: Procedure Laterality Date ??? Cholecystectomy 2006 ??? HX C SECTION CLASSIC 1989 ??? HX CAROTID ENDARDECTOMY 2014 ??? HX TUBAL LIGATION 1989 ??? HI FOOT/TOES SURGERY PROC UNLISTED ??? Tympanostomy 2013 Family History Problem Relation Name Age of [...] strain: Not on file ??? Food insecurity Worry: Not on file Inability: Not on file ??? Transportation needs Medical: Not on file Non-medical: Not on file Tobacco Use ??? Smoking status: Current Every Day Smoker ??? Smokeless tobacco: Never Used Substance and Sexual Activity ??? Alcohol use: No ??? Drug use: Yes Types: Marijuana ??? Sexual activity: Not on file Lifestyle ??? Physical activity Days per week: Not on file Minutes per session: Not on file ??? Stress: Not on file Relationships ??? Social connections Talks on phone: Not on file Gets together: Not on file Attends cheondoism service: Not on file Active member of club or organization: Not on file Attends meetings of clubs or organizations: Not on file Relationship status: Not on file ??? Intimate partner violence Fear of current or ex partner: Not on file Emotionally abused: Not on file Physically abused: Not on file Forced sexual activity: Not on file Other Topics Concern ??? 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 Date last employed: 30 years ago Allergies Allergen Reactions ??? Penicillins Other and Urticaria unknown Reaction: Hives, ??? Risperidone Other Reported her face getting swollen ??? Haloperidol Other unknown ??? Ketorolac Tromethamine Unknown ??? Penicillin G Other Current Outpatient Medications: ??? albuterol (PROVENTIL;VENTOLIN) (2.5 [...] Rfl: 2 ??? vitamin D, ergocalciferol, (DRISDOL) 34957 UNITS capsule, , Disp: , Rfl: Review of Systems: Constitutional: Negative for fevers, chills Eyes: Negative Ears, nose, mouth, and throat: Negative Cardiovascular: Negative Pulmonary: Negative Gastrointestinal: Negative Genitourinary: Negative Skin: Negative Hematologic/lymphatic: Negative Musculoskeletal:See HPI Neurological: Negative Behavioral/Psych: Negative Endocrine: Negative The rest of the review of systems was negative. Physical Exam: Vitals: 08/08/20 1010 BP: 114/74 Pulse: 95 Temp: 97.1 ??F (36.2 ??C) SpO2: 96% Weight: 209 lb (94.8 kg) Height: 5' 3 (1.6 m) General Appearance: NAD, conversant HEENT: NCAT, MMM, EOMI. Cardiovascular: RRR Respiratory: No increased work of breathing on RA. CTAB Musculoskeletal: Moving all extremities. No clubbing, cyanosis or edema. Palpable bilateral radial pulses. Palpable femoral pulses bilaterally. Dopplerable right DP and PT. Dopplerable left DP and PT Skin: Warm and well perfused Neuro: No focal deficits Psych: Normal affect Labs: Recent Labs: No results for input(s): WBC, HGB, HCT, PLT in the last 94527 hours. No results for input(s): NA, K, CL, CO2, BUN, CREATININE, GLU in the last 17688 hours. No results for input(s): PT, PTT, INR in the last 94574 hours. Imaging: Prior imaging in June 2020 showed increased velocity in left leg after stent in left KALANI. Left KALANI proximal 71 cm/s, distal 508 cm/s. Decreased KENZIE in left extremity with recent decline. Assessment/ Plan: Rody Zaidi is a very pleasant 59-year-old female with a history of PVD, HTN, hypercholesterolemia, T2DM, COPD, asthma, osteoporosis, stroke (2013), and bilateral iliac stent placement (2015) who presents with increasingly symptomatic PVD and claudication in her legs. Assessment is PVD with KALANI di sease. Findings supported by history, physical exam findings, and lab results. Plan is to perform outpatient angiography in order to detect location and severity of stenosis. Possible stent placement based on results from angiography. 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 A Glidewire [...] sheath was then exchanged for a 5 Niuean sheath over a J-wire. A Glidewire and angled glide catheter were then used to attempt crossing the occluded left common iliac artery from below. However, this was initially unsuccessful as it had appeared that the wire and catheter were tracking into a dissection plane in the cahuilla distal left common iliac artery. Crossing from [...] For increased support, the left groin 5 Niuean sheath was exchanged for a longer 5 Niuean sheath. The back of the Glidewire and [...] was withdrawn and the left groin 5 Niuean sheath was exchanged for a 7 Niuean sheath. In order to prevent jailing of the right common iliac artery and stent, the decision was made to place a balloon in the right common iliac artery and stent with plans to insufflate this in tandem with deployment of the new stent on the left. The wire on the right was exchanged for an Amplatz wire in the right groin 5 Niuean sheath was exchanged for a 6 Niuean sheath. A 9 mm x 40 mm [place] balloon was then advanced via the right [...] necessitating further intervention. The left groin 7 Niuean sheath was exchanged for a short 7 Niuean sheath. The wires were withdrawn and Mynx [...] 09/05/2020 8:39 AM . I, Dr. KENDRICK CLARK M.D. have personally reviewed and interpreted this examination/study. This report was electronically signed by KENDRICK CLARK M.D. ??on 09/06/2020 11:05 AM . Procedure Note Kendrick Clark MD - 09/06/2020 PRE-PROCEDURE DIAGNOSIS: 1. Peripheral [...] iliac artery stent placement x2 ATTENDING: Kendrick Clark MD GRAIN THRESHER: Ruy Zednejas MD ANESTHESIA: Moderate conscious sedation with local [...] micropuncture sheath was then exchangedfor a 5 Niuean sheath over the provided J-wire. A Glidewire [...] sheath was then exchanged for a 5 Niuean sheath over a J-wire. AGlidewire and angled glide catheter were then used to attempt crossing theoccluded left common iliac artery from below. However, this was initially unsuccessful as it had appeared that the wire and catheter were tracking into a dissection plane in the cahuilla distal left common iliac artery. Crossing from [...] sheath was exchanged for a longer 5 Niuean sheath. The back of the Glidewire and [...] was withdrawn and the left groin 5 Niuean sheath was exchanged for a 7 Niuean sheath. In order to prevent jailing of theright common iliac artery and stent, the decision was made to place a balloonin the right common iliac artery and stent with plans to insufflate this in tandem with deployment of the new stent on the left. The wire on theright was exchanged for an Amplatz wire in the right groin 5 Niuean sheath was exchanged for a 6 Niuean sheath. A 9 mm x 40 mm [place] balloon was then advanced via the right [...] necessitating further intervention. The left groin 7 Niuean sheath was exchanged for a short 7 Niuean sheath. The wires were withdrawn and Mynx [...] 09/05/2020 8:39 AM . I, Dr. KENDRICK CLARK M.D. have personally reviewed and interpreted this examination/study. This report was electronically signed by KENDRICK CLARK M.D. on 09/06/2020 11:05 AM . Kendrick Clark MD IR ORDERABLES documented in this encounter Visit Diagnoses Diagnosis PAD (peripheral artery disease) (HCC)- Primary Unspecified disorders of arteries and arterioles PAD (peripheral artery disease) (HCC)- Primary Unspecified disorders of arteries and arterioles Chest pain, unspecified type documented in this encounter Care Teams Indian Trader Relationship Specialty Start Date End Date Neva Holden MD [address] [place] [phone] PCP - General 05/06/20 05/25/23 documented as of this encounter
--- OUTSIDE RECORDS SUMMARY | 2024-11-12 04:44 | XMS_ITS | Encounter Summary ---
Author Organization [facility] Address [address] [facility] [place] [address] Care Team Providers Care Swiss Machinist Name Role Phone Neva Holden MD Primary Care Provider [phone] Encounter Details Date Type Department Care Team (Latest Contact Info) Description 06/18/2020 Travel Social History Tobacco Use Types Packs/Day [...] PM CDT documented as of this encounter Plan of Treatment Upcoming Encounters Date Type Department Care Team (Late st Contact Info) Description 01/19/2025 11:30 AM E BUSINESS CONSULTANT Procedure visit [facility] - Urology [address] [place] [address] [address] [place] [phone] Jose Oliver MD [address] [place] [phone] documented as of this encounter Visit Diagnoses Not on filedocumented in this encounter Care Teams Swiss Machinist Relationship Specialty Start Date End Date Neva Holden MD [address] [place] [phone] PCP - General 05/06/20 05/25/23 documented as of this encounter
--- OUTSIDE RECORDS SUMMARY | 2024-11-12 04:44 | XMS_ITS | Encounter Summary ---
Author Organization [facility] Address [address] [facility] [place] [address] Care Team Providers Care Senior Media Buyer Name Role Phone Neva Holden MD Primary Care Provider Reason for Referral * Radiology Services (Routine) - Closed Specialty Diagnoses / Procedures Referred By Contac t Referred To Contact Vascular Lab Diagnoses PAD (peripheral artery disease) (HCC) Procedures VAS ARTERIAL ANKLE ARM INDEX Ruy Zendejas MD [address] [place] [address] [facility] [address] [place] [phone] Referral ID Status Reason Start Date Expiration Date Visits Re quested Visits Authorized [id number] Closed 09/04/2020 09/04/2021 1 1 WORKER VEGETABLE Reason for Visit * Radiology Services (Routine) - Closed Specialty Diagnoses / Procedures Referred By Contac t Referred To Contact Vascular Lab Diagnoses PAD (peripheral artery disease) (HCC) Procedures VAS ARTERIAL ANKLE ARM INDEX Ruy Zendejas MD [address] [place] [address] [facility] [address] [place] [phone] Referral ID Status Reason Start Date Expiration Date Visits Re quested Visits Authorized [id number] Closed 09/04/2020 09/04/2021 1 1 Encounter Details Date Type Department Care Team (Latest Contact Info) Description 10/22/2020 8:10 AM FARMWORKER VEGETABLE - 10/22/2020 11:59 PM FARMWORKER VEGETABLE Hospital Encounter [facility] [address] [place] [address] Ruy Zendejas MD [address] [place] [address] Discharge Disposition: Home or Self Care Social [...] have Coronavirus / COVID-19? No / Unsure 10/22/2020 8:01 AM FARMWORKER VEGETABLE documented as of this encounter Medications at [...] evening meal 12/27/2016 vitamin D, ergocalciferol, (DRISDOL) 18589 UNITS capsule Take 1 (one) capsule by [...] DAILY 09/01/2021 isosorbide mononitrate CR 24hr (IMDUR) 60 MG tablet Take 1 tablet by mouth once daily 90 tablet 4 10/01/2020 12/08/2021 losartan (COZAAR) 100 MG tablet 02/05/2019 12/08/2021 metoprolol succinate XL 24hr (TOPROL XL) 100 MG tablet Take 1 tablet by mouth once daily 90 tablet 3 10/01/2020 03/03/2021 nicotine polacrilex (NICOTINE MINI) 2 MGIndications:Nicotin e Dependence Take 1 Each by mouth as needed Reasons: Nicotine Addiction 20 lozenge 2 10/03/2020 12/03/2020 nitroGLYCERIN (NITROSTAT) 0.4 MG tablet 11/06/2016 12/08/2021 [...] TK 1 T PO QD 03/21/2020 10/24/2020 rosuvastatin (CRESTOR) 10 MG tablet Take 1 tablet by mouth once daily 90 tablet 3 10/01/2020 12/03/2020 varenicline (CHANTIX STARTING MONTH ) 0.5 MG X 11 & 1 MG X 42 tablets FPD UTD 12/25/2019 06/25/2021 documented as of this encounter Plan of Treatment Upcoming Encounters Date Type Department Care Team (Late st Contact Info) Description 01/19/2025 11:30 AM FARMWORKER VEGETABLE Procedure visit [facility] - Urology [address] [place] [address] [address] [place] [address] Jose Oliver MD [address] [place] [phone] documented as of this encounter Goals Goal [...] Comments VAS ARTERIAL ANKLE ARM INDEX Routine 10/22/2020 9:03 AM FARMWORKER VEGETABLE PAD (peripheral artery disease) (HCC) documented in this encounter Results * VAS ARTERIAL ANKLE ARM INDEX (10/22/2020 9:03 AM FARMWORKER VEGETABLE) Anatomical Region Laterality Modality Ankle / Foot, Upper Extremity In travascular Ultrasound 10/22/2020 8:16 AM FARMWORKER VEGETABLE Narrative Procedure Note Eric Costa MD - 10/22/2020 Ruy Zendejas MD VASCULAR LAB ORDERAB LES documented in this encounter Visit Diagnoses Diagnosis PAD (peripheral artery disease) (HCC) Unspecified disorders of arteries and arterioles documented in this encounter Care Teams Senior Media Buyer Relationship Specialty Start Date End Date Neva Holden MD [address] [place] [phone] PCP - General 05/06/20 05/25/23 documented as of this encounter
--- OUTSIDE RECORDS SUMMARY | 2024-11-12 04:44 | XMS_ITS | Encounter Summary ---
Author Organization [facility] Address [address] [place] [address] Care Team Providers Care Offset Press Operator Helper Name Role Phone Neva Holden MD Primary Care Provider [phone] Reason for Visit * Reason Onset Date Comments Scheduling 10/01/2020 Cath Encounter Details Date Type Department Care Team (Late st Contact Info) Description 10/01/2020 Telephone [facility] [address] [facility] [address] [place] [address] Jacquelin Malloy RN Scheduling (Cath) Social History Tobacco Use Types Packs/Day Years [...] encounter Miscellaneous Notes * Telephone Encounter - Jacquelin Malloy RN - 10/01/2020 1:45 PM CST Rody Zaidi is scheduled on 10/24 @ 0730 arriving @ 0600. TH SERVICE WORKER * Telephone Encounter - Jacquelin Malloy RN - 10/01/2020 10:54 AM CST Patient in clinic today - decision made to proceed with heart catheterization. Instruction sheet completed and reviewed with patient while in clinic. She will have lab work drawnat [facility]. Message sent to [facility] for scheduling. TH SERVICE WORKER documented in this encounter Plan of Treatment Upcoming Encounters Date Type Department Care Team (Late st Contact Info) Description 01/19/2025 11:30 AM HEALTH SERVICE WORKER Procedure visit [facility] - Urology [address] [facility] [address] [place] [address] Jose Oliver MD [address] [place] [address] documented as of this encounter Goals Goal [...] on filedocumented in this encounter Care Teams Offset Press Operator Helper Relationship Specialty Start Date End Date Neva Holden MD [address] [place] [phone] PCP - General 05/06/20 05/25/23 documented as of this encounter
--- OUTSIDE RECORDS SUMMARY | 2024-11-12 04:44 | XMS_ITS | Encounter Summary ---
Author Organization [facility] Address [address] [place] [address] Care Team Providers Care Spot Welder Name Role Phone Neva Holden MD Primary Care Provider Reason for Visit * Reason Onset Date Comments LABS ONLY 09/05/2021 Encounter Details Date Type Department Care Team (Late st Contact Info) Description 09/05/2021 Telephone [facility] [address] [facility] [address] [place] [address] Adrianna Adair, RN LABS ONLY Social History Tobacco Use Types Packs/Day Years [...] Telephone Encounter - Adrianna Adair RN - 09/09/2021 11:18 AM CDT Spoke with patient and she states that she has been taking the repatha for at least a couple of months. She states that she would like to get the lipid panel done at [facility] on 09/30. Informed her typewriter ribbon winder will return call to discuss results. Patient in agreement with plan. Put in new order for lipid panel. Set reminder to check for results. * Telephone Encounter - Adrianna Adair RN - 09/05/2021 2:48 PM CDT Attempted to reach patient, left message to return call, nurse number provided. Patient was to check lipid 8 weeks after starting Repatha Upon call back, please inquire how she is doing on Repatha and how long she has been taking it. If taking for more than 8 weeks, please assist in getting lipid panel done. documented in this encounter Plan of Treatment Upcoming Encounters Date Type Department Care Team (Late st Contact Info) Description 01/19/2025 11:30 AM PUBLIC IMPROVEMENT INSPECTOR Procedure visit [facility] - Urology [address] [place] [address] [address] [place] [address] Jose Oliver MD [address] [place] [phone] documented as of this encounter Goals Goal [...] Procedure Name Priority Date/Time Associated Diagnosis Comments LIPID PROFILE Routine 09/30/2021 7:11 AM PUBLIC IMPROVEMENT INSPECTOR Hyperlipidemia, unspecified hyperlipidemia type documented in this encounter Results * (ABNORMAL) LIPID PROFILE (09/30/2021 7:11 AM PUBLIC IMPROVEMENT INSPECTOR) Cholesterol 198 <200 mg/dL [facility] HDL Cholesterol 53 > OR = 50 mg/dL [facility] Triglycerides 444(H) <150 mg/dL [facility] Comment: If a non-fasting specimen was collected, consider repeat triglyceride testing on a fasting specimen if clinically indicated. Nuno et al. J. of Clin. Lipidol. 2015;9:129-169. LDL Calculated mg/dL (calc) [facility] Comment: LDL cholesterol not calculated. Triglyceride levels greater than 400 mg/dL invalidate calculated LDL results. Reference range: <100 Desirable range <100 mg/dL for primary prevention; ?? <70 mg/dL for patients with CHD or diabetic patients with > or = 2 CHD risk factors. LDL-C is now calculated using the Edgar calculation, which is a validated novel method providing better accuracy than the Friedewald equation in the estimation of LDL-C. James SS et al. LB. 2013;310(19): 2470-4419 (http://education.Synoste Oy/faq/PWD600) CHOL/HDLC RATIO 3.7 <5.0 (calc) [facility] Non HDL Cholesterol 145(H) <130 mg/dL (calc) [facility] Comment: For patients with diabetes plus 1 major ASCVD risk factor, treating to a non-HDL-C goal of <100 mg/dL (LDL-C of <70 mg/dL) is considered a therapeutic option. REPORT COMMENT: FASTING:YES Test Performed at: [facility] [address] [place], [place] ??[phone] JESSICA MANLEY DO,MPH Blood BLOOD SPECIMEN / Unknown 09/30/2021 7:11 AM PUBLIC IMPROVEMENT INSPECTOR 09/30/2021 7:11 AM PUBLIC IMPROVEMENT INSPECTOR Monica Quijano MD LAB - CHEMISTRY ORD ERABLES [facility] [address] [place] [address] documented in this encounter Visit Diagnoses Diagnosis Hyperlipidemia, unspecified hyperlipidemia type- Primary documented in this encounter Care Teams Spot Welder Relationship Specialty Start Date End Date Neva Holden MD [address] [place] [phone] PCP - General 05/06/20 05/25/23 documented as of this encounter
--- OUTSIDE RECORDS SUMMARY | 2024-11-12 04:44 | XMS_ITS | Encounter Summary ---
Author Organization [facility] Address [address] [facility] [place] [address] Care Team Providers Care Shift Manager Name Role Phone Neva Holden MD Primary Care Provider [phone] Reason for Visit * Reason Onset Date Comments Medication Issue 11/25/2021 Encounter Details Date Type Department Care Team (Late st Contact Info) Description 11/25/2021 Telephone [facility] [address] [facility] [address] [place] [address] Adrianna Adair sales floor manager Issue Social History Tobacco Use Types Packs/Day Years [...] COVID-19? No / Unsure 12/02/2021 9:22 AM FLORIST HELPER documented as of this encounter Miscellaneous Notes * Telephone Encounter - Adrianna Adair RN - 12/03/2021 11:33 AM CST Patient returned call and left message, states that insurance is needing another prior authorization. Called pharmacy and they state that prescription needs sent to specialty pharmacy in [facility] Sent prescription to preferred pharmacy. Returned call to patient, informed her of prescription being sent to [facility]. She states that she will call pharmacy to make sure they are able to fill prescription. Informed her to call with any quesitons IST HELPER * Telephone Encounter - Adrianna Adair RN - 12/03/2021 9:45 AM CST Spoke with patient and she states that she is still figuring out which pharmacy she should use for her specialty pharmacy. Informed her to call financial underwriter when she knows which specific pharmacy. She states that she got her labs done. Discussed that lipid are still high. She states that she will work on contacting insurance and pharmacy today. IST HELPER * Telephone Encounter - Chloé Jensen RN - 11/26/2021 11:28 AM FLORIST HELPER Pt called and left vm message-returning your call-script for repatha needs to go to speciality pharmacy Called and spoke to pt-she is aware that she needs to let this office know what specialty pharmacy she is required to use ( as per Adrianna message form yesterday) Pt will call insurance and will call back with info regarding mail order pharmacy IST HELPER * Telephone Encounter - Adrianna Adair RN - 11/25/2021 1:26 PM CST Patient called and left a message stating that she is needing a new prescription for Repatha sent to [facility] Attempted to reach patient, mailbox is full-unable to leave message. [facility] with [facility] and they state that due to her insurance, they are requiring prescription to go through a specialty pharmacy. States that patient needs to call insurance to set up with specialty pharmacy for mailing prescription to patient, IST HELPER documented in this encounter Plan of Treatment Upcoming Encounters Date Type Department Care Team (Late st Contact Info) Description 01/19/2025 11:30 AM FLORIST HELPER Procedure visit [facility] [address] [place] [address] Jose Oliver MD [address] [place] [address] documented as of this encounter Goals Goal [...] on filedocumented in this encounter Care Teams Shift Manager Relationship Specialty Start Date End Date Neva Holden MD [address] [place] [phone] PCP - General 05/06/20 05/25/23 documented as of this encounter
--- OUTSIDE RECORDS SUMMARY | 2024-11-12 04:44 | XMS_ITS | Encounter Summary ---
Author Organization [facility] Address [address] [facility] [place] [address] Care Team Providers Care Label Stamper Name Role Phone Neva Holden MD Primary Care Provider Reason for Referral * Radiology Services (Routine) - Closed Specialty Diagnoses / Procedures Referred By Contac t Referred To Contact Echosonography Diagnoses Pulmonary emphysema, unspecified emphysema type (HCC) Procedures ECHO COMPLETE W BUBBLE STUDY Hollis Mccall MD [address] DIV OF PULMONARY/[place] [address] Referral ID Status Reason Start Date Expiration Date Visits Re quested Visits Authorized [id number] Closed 11/20/2021 11/20/2022 1 1 NCIAL AID DIRECTOR Reason for Visit * Reason Comments COPD Encounter Details Date Type Department Care Team (Late st Contact Info) Description 11/03/2021 3:30 PM FINANCIAL AID DIRECTOR Office Visit [facility] [address] [facility], [place] [phone] Bora Ferreira MD [address] [place] [address] Pulmonary emphysema, unspecified emphysema type (HCC) (Primary Dx) Social History Tobacco Use Types Packs/Day Years Used Date Smoking Tobacco: Every Day Cigarettes 1 40 Smokeless Tobacco: Never Tobacco Cessation:Ready to Q uit: Yes; Counseling Given: Yes Comments:pt said she will [...] COVID-19? No / Unsure 10/06/2021 12:48 PM FINANCIAL AID DIRECTOR documented as of this encounter Last Filed Vital Signs Vital Sign Reading Time Taken Comments Blood Pressure 154/96 11/03/2021 3:16 PM FINANCIAL AID DIRECTOR Pulse 103 11/03/2021 3:16 PM FINANCIAL AID DIRECTOR Temperature - - Respiratory Rate 24 11/03/2021 3:16 PM FINANCIAL AID DIRECTOR Oxygen Saturation 98% 11/03/2021 3:16 PM FINANCIAL AID DIRECTOR Inhaled Oxygen Concentration - - Weight 97 kg (213 lb 12.8 oz) 11/03/2021 3:16 PM FINANCIAL AID DIRECTOR Height - - Body Mass Index 37.87 09/30/2021 8:02 AM FINANCIAL AID DIRECTOR documented in this encounter Progress Notes * Bora Ferreira MD - 11/03/2021 4:31 PM CST Images from the original note were not included. Division of Pulmonary, Critical Care, and Sleep Medicine [address] [place] [address], [address] [place] [address] HISTORY OF PRESENT ILLNESS: Rody Zaidi is a 60 year old female that was referred to clinic for COPD.Patient had 2 exacerbation in the last 3 months requiring prednisone burst and antibiotics. She has been feeling more SOB than usual in the last 2 weeks after she contracted some flu like symptom from her niece. C/o cough with greenish sputum. No fever. COVID X 2 negative. Diagnosed with COPD 25 years ago. Never had a lung function test. Has been on proair and symbicort.Was also on Flovent for some time. Was doing well for a couple of years but started having more flairs last 3-4 months. Before COVID had frequent flair ups. ?? CATHERINE- does not wear hear CPAP. Recommend follow up with sleep clinic. ? Ancillary symptoms: Nose is dry when she wakes up. Chronic sinus drainage GERD well controlled ?? Current respiratory therapies/medications: - Symbicort 2 puffs BID - Proair - using daily - famotidine - cetirizine ?? HISTORIES: PAST MEDICAL/SURGICAL HISTORY: - CATHERINE - HTN - HLD - DM - CAD - anxiety - h/o COPD - Foot/toe surgery - cholecystectomy 2006 - carotid endarterectomy - tubal lication ?? FAMILY HISTORY: - Family history of depression ?? SOCIAL HISTORY: Tobacco use: Current smoker, 1/2 ppd for past 40 years. Marijuana use. CAT score - 20 Past Medical History: Diagnosis Date ??? Anxiety [...] 100 mg by mouth 2 times daily (Patient not taking:Reported on 11/03/2021), Disp: , Rfl: ??? EPINEPHrine (EPIPEN) 0.3 [...] mcg/actuation nasal spray,suspension, Disp: , Rfl: ??? HYDROcodone-acetaminophen (NORCO) 10-325 [...] tablet, Take 1 tablet by mouth once daily (Patientnot taking: Reported on 11/03/2021), Disp: 90 tablet, Rfl: 4 ??? levoFLOXacin (LEVAQUIN) 500 MG tablet, Take 1.5 (one and one-half) tablets by mouth once daily for 5 days, Disp: 14 tablet, Rfl: 0 ??? losartan (COZAAR) 100 MG tablet, , [...] ??? predniSONE (DELTASONE) 20 MG tablet, Take 1 (one) tablet by mouth once daily for 5 days, Disp: 10 tablet, Rfl: 0 ??? REPATHA SURECLICK 140 MG/ML auto-injector, INJECT 1 PEN UNDER THE SKIN EVERY 14 DAYS, Disp: 2 mL, Rfl: 2 ??? SYMBICORT 160-4.5 MCG/ACT inhaler, Inhale 2 (two) puffs by mouth 2 times daily, Disp: 100 g, Rfl: 11 ??? tiotropium (SPIRIVA HANDIHALER) 18 MCG inhalation capsule, Inhale 1 (one) capsule by mouth once daily, Disp: 30 capsule, Rfl: 11 ??? triamcinolone acetonide (KENALOG) 0.1 % cream, triamcinolone acetonide 0.1 % topical cream APPLY TOPICALLY TO THE AFFECTED AREA TWICE DAILY, Disp: , Rfl: ??? 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 Date last employed: 30 years ago Immunization History Administered Date(s) Administered ??? FLU VACCINE QUAD IIV4 SPLIT 0.25 ML IM 08/28/2020 ??? FLU VACCINE QUAD IIV4 SPLIT PF IM 08/26/2017, 07/27/2018, 09/22/2019 ??? FLU VACCINE TRI IIV3 SPLIT IM (AFLURIA) 12/16/2015 ??? INFLUENZA 08/28/2020 ??? PFIZER SARS-COV-2 COVID-19 VACCINE 0.3ML 02/17/2021, 03/13/2021 ??? Pneumococcal Pcv13 Conj 12/16/2015, 07/23/2016 ??? TDAP 01/31/2019 Systemic ROS: ROS: negative as below unless BOLDED Gen: fever, chills, weight changes, night sweats, HEENT: Swollen glands, Nasal discharge, blurred vision CV: palpitations, chest pain GI: diarrhea constipation nausea vomiting : dysuria frequency hematuria urgency. Hem: bleeding easy bruising. Skin: rash pruritus Neuro:weakness numbness headache. Psych: depression suicidal ideation homicidal ideation. Review of all other systems is negative. PE: BP 154/96 Pulse 103 Resp 24 Wt 213 lb 12.8 oz (97 kg) SpO2 98% BMI 37.87 kg/m2 General: Alert, cooperative, no distress Head: Normocephalic, without obvious abnormality, atraumatic. Eyes: Conjunctivae/corneas clear. PERRL, EOMs intact. Throat: Mucosa membrane moist. II (soft palate, uvula, fauces visible). No injection or exudate noted. Neck: Supple, symmetrical, trachea midline, no adenopathy, thyroid: no enlargment/tenderness/nodules, no carotid bruit and no JVD. Lungs: b/l wheezing noted Heart: regular rate and rhythm, S1, S2 normal, no murmur, click, rub or gallop. Abdomen: Soft, non-tender. Bowel sounds normal. No masses, No organomegaly. Extremities: no edema in the lower extremities. DATA REVIEWED: Lab data: Reviewed ?? Pulmonary function tests: ?? Radiology: None available ?? ECHO: None available ?? ASSESSMENT: 1. COPD group D, in acute exacerbation 2. Tobacco dependence 3. CATHERINE, non compliant with CPAP 4. Allergic rhinitis 5. GERD, well controlled 6. Generalized anxiety 7. CAD 8. Need for lung cancer screening test. ?? PLAN/DIAGNOSTIC: 1. Alpha 1 AT blood level and phenotype. 2.ECHO 3.Low dose cancer screening CT chest next visit. ?? PLAN/THERAPEUTIC: 1. Discussed importance of smoking cessation - Patient continue to smoke 5 cig per day. - Has nicotine patch at home, not using. 2. AE-COPD treatment - Prednisone 40mg daily x 5 days - Levofloxacin 750mg daily x 5 days (PNC allergy) 3. Inhale regimen - Symbicort to 160/4.5 2 puffs BID - Added Spiriva 18 mcg DPI. - albuterol 2 puffs q4h as needed 4. Continue cetrizine and famotidine 5. Pulmonary rehab ordered today. 6. RTC in 12 weeks with results ?? Orders Placed This Encounter ??? [id number] BLOOD PHENOTYPING PANEL Standing Status: Future Standing Expiration Date: 11/28/2022 Order Specific Question: Release to patient Answer: Immediate ??? [id number] BLOOD Standing Status: Future Standing Expiration Date: 11/28/2022 Order Specific Question: Release to patient Answer: Immediate ??? Ref to Physical Therapy - [facility] PT Standing Status: Future Standing Expiration Date: 11/03/2022 Referral Priority: Routine Referral Type: Evaluate & Treat Referral Reason: Specialty Services Required Number of Visits Requested: 1 ??? SYMBICORT 160-4.5 MCG/ACT inhaler Sig: Inhale 2 (two) puffs by mouth 2 times daily Dispense: 100 g Refill: 11 ??? albuterol HFA (PROAIR HFA) 108 (90 Base) MCG/ACT inhaler Sig: Inhale 2 (two) puffs by mouth every 4 hours as needed Dispense: 8.5 g Refill: 11 ??? albuterol (PROVENTIL;VENTOLIN) (2.5 MG/3ML) 0.083% nebulizer solution Sig: Inhale 2.5 (two and one-half) mg by mouth every 4 hours as needed for Shortness of Breath Dispense: 75 mL Refill: 0 ??? tiotropium (SPIRIVA HANDIHALER) 18 MCG inhalation capsule Sig: Inhale 1 (one) capsule by mouth once daily Dispense: 30 capsule Refill: 11 ??? predniSONE (DELTASONE) 20 MG tablet Sig: Take 1 (one) tablet by mouth once daily for 5 days Dispense: 10 tablet Refill: 0 ??? levoFLOXacin (LEVAQUIN) 500 MG tablet Sig: Take 1.5 (one and one-half) tablets by mouth once daily for 5 days Dispense: 14 tablet Refill: 0 Follow-up in 3 months Case discussed with attending . Agree with above. Attending addendum to follow. Dr.Raja Hanna HUYNH Pulmonary & Critical Care Fellow Division of Pulmonary, Critical Care and Sleep Medicine [facility] Pager:[phone] NCIAL AID DIRECTOR Associated attestation - Hollis Mccall MD - 11/14/2021 1:52 PM FINANCIAL AID DIRECTOR I saw and evaluated the patient. I reviewed the resident???s note and agree with findings and plan as documented in the resident???s note Hollis Mccall MD Division of Pulmonary, Critical Care, & Sleep Medicine [facility] P: [phone] 11/14/2021 , 1:52 PM documented in this encounter Plan of Treatment Upcoming Encounters Date Type Department Care Team (Late st Contact Info) Description 01/19/2025 11:30 AM FINANCIAL AID DIRECTOR Procedure visit [facility] [address] [facility] [address] [place] [phone] Jose Oliver MD [address] [place] [address] documented as of this encounter [...] documented as of this encounter Results * ECHO COMPLETE W BUBBLE STUDY (12/31/2021 9:47 AM FINANCIAL AID DIRECTOR) Anatomical Region Laterality Modality Chest Echo 12/31/2021 9:07 AM FINANCIAL AID DIRECTOR Narrative Procedure Note Campos Fraga MD - 01/08/2022 Hollis Mccall MD ECHOCARDIOGRAPHY RAD IANT * [id number]-4-FVBUNQIUMVD BLOOD (12/02/2021 10:26 AM FINANCIAL AID DIRECTOR) Pathologist [facility] Lhhtj-3-Litmub ypsin 164 90 - 200 mg/dL 12/02/2021 12:30 PM FINANCIAL AID DIRECTOR [facility] Blood BLOOD SPECIMEN / Unknown Lab Venipuncture / Unknown 12/02/2021 10:26 AM FINANCIAL AID DIRECTOR 12/02/2021 11:13 AM FINANCIAL AID DIRECTOR Hollis Mccall MD LAB - CHEMISTRY [facility] [address] [place] [address], [facility] [phone] * [id number]-RATOHUGBPDX BLOOD PHENOTYPING PANEL (12/02/2021 10:26 AM FINANCIAL AID DIRECTOR) Orubm-0-Bbztxwenec n Phenotype M2M2 12/05/2021 5:33 PM FINANCIAL AID DIRECTOR [facility] ([facility]) Comment: The patient appears to have a normal phenotype. All M alleles (including subtypes M1, M2, and M3) produce normal serum concentrations of gtjcm-4-ifoudamo inhibitor and are not associated with clinical disease. Caution in interpretation is advised if the patient has been transfused within the previous 21 days. Performed By: [facility] [address] [place] [address] Continuous Pickling Line Pickler: Starr Boswell MD Hdzwd-9-Xgjtdqyulx n 151 90 - 200 mg/dL 12/05/2021 5:33 PM FINANCIAL AID DIRECTOR [facility] ([facility]) Comment:To convert to umol/L , multiply mg/dL by 0.185 Blood BLOOD SPECIMEN / Unknown Lab Venipuncture / Unknown 12/02/2021 10:26 AM FINANCIAL AID DIRECTOR 12/02/2021 11:13 AM FINANCIAL AID DIRECTOR Hollis Mccall MD LAB - CHEMISTRY [facility] Organization Address City/State/ZIP Co de Phone Number [employer] ([facility]) [address] documented in this encounter Visit Diagnoses Diagnosis Pulmonary emphysema, unspecified emphysema type (HCC)- Primary Pulmonary emphysema, unspecified emphysema type (HCC) documented in this encounter Care Teams Label Stamper Relationship Specialty Start Date End Date Neva Holden MD [address] [place] [phone] PCP - General 05/06/20 05/25/23 documented as of this encounter
--- OUTSIDE RECORDS SUMMARY | 2024-11-12 04:44 | XMS_ITS | Encounter Summary ---
Author Organization [facility] Address [address] [facility] [place] [address] Care Team Providers Care Transport Aide Name Role Phone Neva Holden MD Primary Care Provider [phone] Encounter Details Date Type Department Care Team (Latest Contact Info) Description 06/17/2020 Travel Social History Tobacco Use Types Packs/Day [...] have Coronavirus / COVID-19? Unable to assess 06/17/2020 11:07 AM CDT documented as of this encounter Plan of Treatment Upcoming Encounters Date Type Department Care Team (Late st Contact Info) Description 01/19/2025 11:30 AM MATERIAL EXPEDITOR Procedure visit [facility] - Urology [address] [place] [address] [address] [place] [phone] Jose Oliver MD [address] [place] [phone] documented as of this encounter Visit Diagnoses Not on filedocumented in this encounter Care Teams Transport Aide Relationship Specialty Start Date End Date Neva Holden MD [address] [place] [address] PCP - General 05/06/20 05/25/23 documented as of this encounter
--- OUTSIDE RECORDS SUMMARY | 2024-11-12 04:44 | XMS_ITS | Encounter Summary ---
Author Organization [facility] Address [address] [facility] [place] [address] Care Team Providers Care Nurse Examiner Name Role Phone Dane Sullivan Primary Care Provider Reason for Visit * Reason Onset Date Comments Appointment 02/01/2020 Encounter Details Date Type Department Care Team (Late Contact Info) Description 02/01/2020 Telephone [facility] [address] [place] [address] Lita Shah MD [facility] [place] [address] Appointment Social History Tobacco Use Types Packs/Day [...] encounter Miscellaneous Notes * Telephone Encounter - Lita Shah MD - 02/01/2020 12:37 PM CDT Called and left VM that if she is not having acute vision problems we would like to cancel appt next week for diabetic exam due to coronovirus. Asked to call back to reschedule in late February or March. If having acute vision problems, can keep appt next week. Lita Shah MD PGY-3 Ophthalmology documented in this encounter Plan of Treatment Upcoming Encounters Date Type Department Care Team (Late st Contact Info) Description 01/19/2025 11:30 AM EMPLOYEE DEVELOPMENT SPECIALIST Procedure visit [facility] - Urology [address] [place] [address] Rd [address] [place] [address] Jose Oliver MD [address] [place] [address] documented as of this encounter Visit Diagnoses Not on filedocumented in this encounter Care Teams Nurse Examiner Relationship Specialty Start Date End Date Dane Sullivan DO PCP - General 06/24/17 05/05/20 documented as of this encounter
--- OUTSIDE RECORDS SUMMARY | 2024-11-12 04:44 | XMS_ITS | Encounter Summary ---
Author Organization [facility] Address [address] [facility] [place] [address] Care Team Providers Care Personal Banker Name Role Phone Neva Holden MD Primary Care Provider [phone] Encounter Details Date Type Department Care Team (Late Contact Info) Description 11/23/2021 Orders Only [facility] [address] [facility], [place] [phone] Hollis Mccall MD [address] [facility] 2L DIV OF PULMONARY/[place] [address] Social History Tobacco Use Types Packs/Day Years [...] (Late Contact Info) Description 01/19/2025 11:30 AM GAS TRUCK DRIVER Procedure visit [facility]rology [address] [place] [address] [address] [place] [phone] Jose Oliver MD [address] [facility] [address] [place] [address] documented as of this encounter [...] on filedocumented in this encounter Care Teams Personal Banker Relationship Specialty Start Date End Date Neva Holden MD [address] [place] [phone] PCP - General 05/06/20 05/25/23 documented as of this encounter
--- OUTSIDE RECORDS SUMMARY | 2024-11-12 04:44 | XMS_ITS | Encounter Summary ---
Author Organization [facility] Address [address] [place] [address] Care Team Providers Care Rubber Engraver Name Role Phone Neva Holden MD Primary Care Provider [phone] Encounter Details Date Type Department Care Team (Late Contact Info) Description 12/04/2020 Orders Only [facility] [address] [facility] [address] [place] [address] Monica Quijano MD Stable angina Social History Tobacco Use Types Packs/Day Years [...] as of this encounter Progress Notes * Jacquelin Malloy RN - 12/04/2020 2:47 PM CST New order placed for Cardiac Rehab - diagnosis stable angina. SSOGRAPH OPERATOR documented in this encounter Plan of Treatment Upcoming Encounters Date Type Department Care Team (Late Contact Info) Description 01/19/2025 11:30 AM EMBOSSOGRAPH OPERATOR Procedure visit [facility] - Urology [address] [place] [address] [address] [place] [phone] Jose Oliver MD [address] [place] [address] documented as of this encounter Goals Goal [...] as of this encounter Visit Diagnoses Diagnosis Stable angina (HCC)- Primary Other and unspecified angina pectoris documented in this encounter Care Teams Rubber Engraver Relationship Specialty Start Date End Date Neva Holden MD [address] [place] [phone] PCP - General 05/06/20 05/25/23 documented as of this encounter
--- OUTSIDE RECORDS SUMMARY | 2024-11-12 04:44 | XMS_ITS | Encounter Summary ---
Author Organization [facility] Address [address] [facility] [place] [address] Care Team Providers Care Translational Specialist Name Role Phone Neva Holden MD Primary Care Provider [phone] Encounter Details Date Type Department Care Team (Latest Contact Info) Description 10/06/2021 Travel Social History Tobacco Use Types Packs/Day [...] COVID-19? No / Unsure 10/06/2021 12:48 PM MANAGER SAFE documented as of this encounter Plan of Treatment Upcoming Encounters Date Type Department Care Team (Late st Contact Info) Description 01/19/2025 11:30 AM MANAGER SAFE Procedure visit [facility] Urology [address] [place] [address] [address] [place] [phone] Jose Oliver MD [address] [place] [phone] documented as of this encounter Goals Goal [...] on filedocumented in this encounter Care Teams Translational Specialist Relationship Specialty Start Date End Date Neva Holden MD [address] [place] [phone] PCP - General 05/06/20 05/25/23 documented as of this encounter
--- OUTSIDE RECORDS SUMMARY | 2024-11-12 04:44 | XMS_ITS | Encounter Summary ---
Author Organization [facility] Address [address] [facility] [place] [address] Care Team Providers Care Supervisor Paint Name Role Phone Dane Sullivan Primary Care Provider Reason for Visit * Reason Comments Red Eye Encounter Details Date Type Department Care Team (Latest Contact Info) Description 03/07/2020 8:45 AM CDT Office Visit [facility] Ophthalmology [address] [place] [address] Tyrone Zuniga MD Acute conjunctivitis, unspecified acute conjunctivitis type, unspecified laterality (Primary Dx) Social History Tobacco Use Types Packs/Day Years Used Date Smoking Tobacco: Every Day Smokeless Tobacco: Never Alcohol Use Standard Drinks/Week Comments No 0 (1 standard drink = 0.6 oz pur e alcohol) Sex and Gender Information Value Date Recorded Sex Assigned at Not on file Gender Identity Not on file Sexual Orientation Not on file documented as of this encounter Patient Instructions * Patient Instructions* Anand Lane MD - 03/07/2020 9:06 AM CDT [facility]Loc[facility] at [facility]) [address] [place] [address] [facility] (Normal Office hours 8am - 5pm) Follow up Appointment: as scheduled - It is important you follow up for your eye(s). - If you have trouble making or getting to your appointment please call the numbers below. Eye Drop Instructions: In the both eyes use the artificial tears four times per day Continue using cromolyn, 2 times per day Oral Medicines Finish your bactrim per your doctors instructions Activity Instructions: Use cold water compresses. Reasons to call: - call with any new changes in vision, including worse vision, if you have a feeling of a curtain coming down over your visionnew flashing lights or sudden new floaters in your vision. - call with any questions about your drops or eye medications, or if you have trouble getting thesemedicines. Phone Number: Weekdays (8am-5pm) - Call [phone] (Weekday) or [phone] (Alternative Number) Evenings, Weekends, or Holidays: Call [phone] and dial [phone] for the brake operator. Ask to speak to the eye doctor cotton program technician. They will connect us. documented in this encounter Progress Notes * Anand Lane MD - 03/07/2020 9:08 AM CDT Ophthalmology Progress Note Subjective: Rody Zaidi is an 59 year old Chief Complaint Patient presents with ??? Red Eye Rody Zaidi is a 59 year old female who presents to the clinic for red eye and watering eyes. States that her left upper eyelid was red. It started 4 days ,OU worse OS. OS also had swollen eyelid. Primary care doctor gave her bactrim 2 days ago to treat the eye infection . The encounter was doneby phone. Yesterday she started having crusted OS . Patient feels this is better now. No eye pain. No new flashing lights or floaters. Vision is about the same. Gtts Cromolyn - 3-4x per day Oral: Bactrim - BID, day 3. Current Outpatient Medications Medication Sig Dispense Refill ??? albuterol (PROVENTIL;VENTOLIN) (2.5 MG/3ML) 0.083% nebulizer solution ??? albuterol HFA (VENTOLIN HFA) 108 (90 BASE) MCG/ACT inhaler ??? ALPRAZolam (XANAX) 1 MG tablet Take 1 tablet by mouth 3 times daily as needed for Anxiety 90 tablet 5 ??? aspirin EC (ECOTRIN) 325 MG tablet ??? beclomethasone dipropionate (QVAR) 40 MCG/ACT inhaler ??? budesonide-formoterol (SYMBICORT) 80-4.5 MCG/ACT inhaler ??? cromolyn (CROLOM) 4 % ophthalmic solution Instill 1 drop into both eyes 3 times daily 10 mL 4 ??? FLUoxetine (PROZAC) 40 MG capsule Take 1 capsule by mouth once daily 30 capsule 11 ??? isosorbide mononitrate CR 24hr (IMDUR) 30 MG tablet ??? losartan (COZAAR) 100 MG tablet ??? metFORMIN (GLUCOPHAGE) 500 MG tablet ??? metoprolol succinate XL 24hr (TOPROL XL) 25 MG tablet ??? montelukast (SINGULAIR) 10 MG tablet ??? nitroGLYCERIN (NITROSTAT) 0.4 MG tablet ??? omeprazole EC (PRILOSEC OTC) 20 MG tablet ??? potassium chloride (KLOR-CON M) 20 MEQ tablet ??? traZODone (DESYREL) 50 MG tablet Take 1 tablet by mouth at bedtime 30 tablet 11 ??? vitamin D, ergocalciferol, (DRISDOL) 83093 UNITS capsule No current facility-administered medications for this visit. Allergies Allergen Reactions ??? Risperidone Other Reported her face getting swollen ??? Haloperidol Other unknown ??? Penicillins Other unknown Objective: Base Eye Exam Visual Acuity (Snellen - Linear) Right Left Dist sc 20/125 Dist ph sc 20/25 20/25 -3 Patient does not have updated MRx with her,. Tonometry (Tonopen, 9:06 AM) Right Left Pressure 14 15 Pupils Dark Light Shape React APD Right 6 3 circ 2+ None Left 6 3 circ 2+ None Visual Matthew Left Right Full Full Extraocular Movement Right Left Full Full Studies 03/07/2020: None Assessment/Plan: Viral Conjunctivitis OS>>OD Dry AMD Visually non-significant Cataracts Refractive Error Plan: 1. Start artificial tears (sample provided), four times daily 2. Continue cromolyn use BID 3. Use cool compresses, avoid hot compresses 4. Return in May as scheduled for retinal exam and follow up, call sooner PRN Follow up : Patient is to follow up with Dr. Zuniga in May I discussed the above with the patient. All questions answered to the best of my ability. Patient was discussed with my attending physician Dr. Zuniga who examined the patient. Anand Lane MD Ophthalmology Resident Physician [facility] 03/07/2020 9:08 AM I have seen and examined the patient with the resident. I agree with the findings and plan of care as documented by the resident. I confirm history, exam, assessment and plan. In addition, I interpreted the diagnostic and study tests myself and agree with the reported interpretation in the note/chart. The plan was discussed and follow up compliance was agreed upon. I have made changes as needed and added new relevant medical information. Tyrone Zuniga M.D. documented in this encounter Plan of Treatment Upcoming Encounters Date Type Department Care Team (Late st Contact Info) Description 01/19/2025 11:30 AM EQUITY RESEARCH ANALYST Procedure visit [facility] - Urology [address] [place] [address] [address] [place] [address] Jose Oliver MD [address] [place] [address] documented as of this encounter Visit Diagnoses Diagnosis Acute conjunctivitis, unspecified acute conjunctivitis type, unspecified laterality- Primary documented in this encounter Care Teams Supervisor Paint Relationship Specialty Start Date End Date Dane Sullivan DO PCP - General 06/24/17 05/05/20 documented as of this encounter
--- OUTSIDE RECORDS SUMMARY | 2024-11-12 04:44 | XMS_ITS | Encounter Summary ---
Author Organization [facility] Address [address] [place] [address] Care Team Providers Care Swimming Coach Name Role Phone Neva Holden MD Primary Care Provider [phone] Reason for Referral * Radiology Services (Routine) - Closed Specialty Diagnoses / Procedures Referred By Contac t Referred To Contact Vascular Lab Diagnoses PAD (peripheral artery disease) (HCC) Procedures VAS DILEEP ABD DOPPLER AO IVC ILIAC Ruy Zendejas MD [address] [place] [address] [facility] [address] [place] [address] Referral ID Status Reason Start Date Expiration Date Visits Re quested Visits Authorized [id number] Closed 09/04/2020 09/04/2021 1 1 UTIVE WELLNESS PROGRAMS DIRECTOR Reason for Visit * Radiology Services (Routine) - Closed Specialty Diagnoses / Procedures Referred By Contac t Referred To Contact Vascular Lab Diagnoses PAD (peripheral artery disease) (HCC) Procedures VAS DILEEP ABD DOPPLER AO IVC ILIAC Ruy Zendejas MD [address] [place] [address] [facility] [address] [place] [address] Referral ID Status Reason Start Date Expiration Date Visits Re quested Visits Authorized [id number] Closed 09/04/2020 09/04/2021 1 1 Encounter Details Date Type Department Care Team (Latest Contact Info) Description 10/22/2020 8:09 AM EXECUTIVE WELLNESS PROGRAMS DIRECTOR Hospital Encounter [facility] [address] [place] [address] Ruy Zendejas MD [address] [place] [address] Discharge Disposition: Home or Self Care Social [...] COVID-19? No / Unsure 10/22/2020 8:01 AM EXECUTIVE WELLNESS PROGRAMS DIRECTOR documented as of this encounter Medications at [...] evening meal 12/27/2016 vitamin D, ergocalciferol, (DRISDOL) 69254 UNITS capsule Take 1 (one) capsule by [...] st Contact Info) Description 01/19/2025 11:30 AM EXECUTIVE WELLNESS PROGRAMS DIRECTOR Procedure visit [facility] - Urology [address] [place] [address] [address] [place] [address] Jose Oliver MD [address] [place] [id number] documented as of this encounter Goals Goal [...] Name Priority Date/Time Associated Diagnosis Comments VAS DILEEP ABD DOPPLER AO IVC ILIAC Routine 10/22/2020 9:02 AM EXECUTIVE WELLNESS PROGRAMS DIRECTOR PAD (peripheral artery disease) (HCC) documented in this encounter Results * VAS DILEEP ABD DOPPLER AO IVC ILIAC (10/22/2020 9:02 AM EXECUTIVE WELLNESS PROGRAMS DIRECTOR) Anatomical Region Laterality Modality Pelvis, Abdomen Intravascular Ul trasound 10/22/2020 8:27 AM EXECUTIVE WELLNESS PROGRAMS DIRECTOR Narrative Procedure Note Eric Costa MD - 10/22/2020 Ruy Zendejas MD VASCULAR LAB ORDERAB LES documented in this encounter Visit Diagnoses Diagnosis PAD (peripheral artery disease) (HCC) Unspecified disorders of arteries and arterioles documented in this encounter Care Teams Swimming Coach Relationship Specialty Start Date End Date Neva Holden MD [address] [place] [phone] PCP - General 05/06/20 05/25/23 documented as of this encounter
--- OUTSIDE RECORDS SUMMARY | 2024-11-12 04:44 | XMS_ITS | Encounter Summary ---
Author Organization [facility] Address [address] [place] [address] Care Team Providers Care Hot Header Operator Name Role Phone Neva Holden MD Primary Care Provider [phone] Reason for Visit * Reason Comments Macular Degeneration Encounter Details Date Type Department Care Team (Late st Contact Info) Description 06/12/2020 10:15 AM CDT Office Visit [facility] Ophthalmology [address] [place] [address] Tyrone Zuniga MD Blurred vision, bilateral (Primary Dx) Social History Tobacco Use Types [...] this encounter Patient Instructions * Patient Instructions* Kathleen Valdovinos MD - 06/12/2020 12:02 PM CDT Follow up in 3-4 months Continue AREDS vitamins It was a pleasure seeing you today in the [facility] Ophthalmology clinic. Call us immediately with any sudden change in vision, sudden or worsening eye pain, if you notice alarge increase or have thousands of floating objects, if you have flashing lights in your vision, or if you have questions about your drops or eye medications. During regular hours, you may call our clinic here at the [facility] ([facility] [phone]; 8am - 4pm, Wednesday - Wednesday, excluding holidays. If after these hours or on the weekend, you will need to call [facility] ([phone]), dial [phone] for the underground heavy equipment operator, and say you are an eye patient and need to speak with the eye doctor electronic technician. They will contact one of the eye doctors who will call you and address your concerns. documented in this encounter Progress Notes * Kathleen Valdovinos MD - 06/12/2020 11:42 AM CDT Ophthalmology Office Note Subjective: Rody Zaidi is an 59 year old Chief Complaint Patient presents with ??? Macular Degeneration Patient returns for dilated exam. Vision is well. No pain/pressure. Some itching. No floaters, occasional flashes of light both eyes. Drops: Cromolyn TID OU Current Outpatient Medications Medication Sig Dispense Refill [...] tablet 11 ??? vitamin D, ergocalciferol, (DRISDOL) 80823 UNITS capsule No current facility-administered medications for this visit. Allergies Allergen Reactions ??? Penicillins Other and Urticaria unknown Reaction: Hives, ??? Risperidone Other Reported her face getting swollen ??? Haloperidol Other unknown ??? Ketorolac Tromethamine Unknown Objective: Base Eye Exam Visual Acuity (Snellen - Linear) Right Left Dist cc 20/30 -1 20/25 +2 Correction: Glasses Tonometry (Tonopen, 10:54 AM) Right Left Pressure 16 14 Dilation Both eyes: 1.0% Mydriacyl, 2.5% Sumit Synephrine @ 10:54 AM Slit Lamp and Fundus Exam External [...] pigmentary changes far periphery around 5 oclock Extended Ophthalmoscopy OD attached retina, no retinal tears, clear vitreous, no hemorrhage, normal foveal reflex, scar superior OS attached retina, no retinal tears, clear vitreous, no hemorrhage, normal foveal reflex, large drusen at 5h Studies 06/12/2020: OCT macula - OCTA OD- normal foveal contour, multiple drusen spots, multiple small PEDs appearimg to be drusenoid OS- normal foveal contour, multiple drusen spots, multiple small PEDs appearing to be drusenoid OCTA done today without evidence of neovascularization Assessment/Plan: Dry AMD - OCTA done today without evidence of neovascularization Viral Conjunctivitis OS>>OD -symptoms controlled with chromolyn drop Visually non-significant Cataracts ?? Refractive Error PLAN Continue taking the AREDS2 vitamins Continue taking chromolyn drop for ocular allergies Follow up with Dr. Mitchell or Dr. Cortes for MRx Follow up in 3-4 months Anne Valdovinos MD, PGY2 I have seen and examined the patient [...] st Contact Info) Description 01/19/2025 11:30 AM LOAN CLERK Procedure visit [facility] - Urology [address] [place] [address] [address] [place] [address] Jose Oliver MD [address] [place] [phone] documented as of this encounter Procedures Procedure Name Priority Date/Time Associated Diagnosis Comments OPH OCT TEST [facility]U Routine 06/12/2020 11:33 AM CDT Blurred vision, bilateral OPH OCT TEST SLU Routine 06/12/2020 10:47 AM CDT Blurred vision, bilateral documented in this encounter Results * OCT (06/12/2020 11:33 AM CDT) Anatomical Region Laterality Modality Other 06/12/2020 11:3 3 AM CDT Tyrone Zuniga MD OPHTHALMOLO GY SERVICES ORDERABLES * OCT (06/12/2020 10:47 AM CDT) Anatomical Region Laterality Modality Other 06/12/2020 10:4 7 AM CDT Kathleen Hill MD OPHTHALMOLOGY SERV ICES ORDERABLES documented in this encounter Visit Diagnoses Diagnosis Blurred vision, bilateral- Primary Other specified visual disturbances documented in this encounter Care Teams Hot Header Operator Relationship Specialty Start Date End Date Neva Holden MD [address] [place] [phone] PCP - General 05/06/20 05/25/23 documented as of this encounter
--- OUTSIDE RECORDS SUMMARY | 2024-11-12 04:44 | XMS_ITS | Encounter Summary ---
Author Organization [facility] Address [address] [facility] [place] [address] Care Team Providers Care Cylinder Checker Name Role Phone Neva Holden MD Primary Care Provider [phone] Encounter Details Date Type Department Care Team (Latest Contact Info) Description 10/06/2021 3:20 PM FINGERNAIL TECHNICIAN - 10/06/2021 11:59 PM FINGERNAIL TECHNICIAN Hospital Encounter [facility] OP DRAW STATION [address] [place] [phone] Damian Hager MD [address] DIVISION [place] [phone] Discharge Disposition: Home or Self Care Social [...] COVID-19? No / Unsure 10/06/2021 12:48 PM FINGERNAIL TECHNICIAN documented as of this encounter Medications at [...] evening meal 12/27/2016 vitamin D, ergocalciferol, (DRISDOL) 75499 UNITS capsule Take 1 (one) capsule by [...] st Contact Info) Description 01/19/2025 11:30 AM FINGERNAIL TECHNICIAN Procedure visit [facility] - Urology [address] [place] [address] [address] [place] [phone] Jose Oliver MD [address] OF [place]OLOGIC [place] [phone] documented as of this encounter Goals Goal [...] Procedure Name Priority Date/Time Associated Diagnosis Comments URINE DRUG SCREEN IMMUNOASSAY Routine 10/06/2021 4:17 PM FINGERNAIL TECHNICIAN MDD (recurrent major depressive disorder) in remission (HCC) TSH REFLEX FREE T4 Routine 10/06/2021 4: 00 PM FINGERNAIL TECHNICIAN MDD (recurrent major depressive disorder) in remission (HCC) HEMOGLOBIN A1C Routine 10/06/2021 4:00 PM FINGERNAIL TECHNICIAN MDD (recurrent major depressive disorder) in remission (HCC) VITAMIN D 25-HYDROXY Routine 10/06/2021 4:00 PM FINGERNAIL TECHNICIAN MDD (recurrent major depressive disorder) in remission (HCC) CBC W AUTO DIFFERENTIAL Routine 10/06/2021 4:00 PM FINGERNAIL TECHNICIAN MDD (recurrent major depressive disorder) in remission (HCC) COMPREHENSIVE METABOLIC PANEL Routine 10/06/2021 4:00 PM [facility] MDD (recurrent major depressive disorder) in remission (HCC) documented in this encounter Results * (ABNORMAL) DRUG SCREEN TOX URINE PANEL (IN HOUSE) (10/06/2021 4:17 PM [facility]) Amphetamines Screen Urine Negative Negative : < 1000 ng/mL 10/06/2021 5:04 PM [facility] Barbiturates Screen Urine Negative Negative : < 200 ng/mL 10/06/2021 5:04 PM [facility] Benzodiazepine Screen Urine Positive(A) Negative : < 200 ng/mL 10/06/2021 5:04 PM [facility] Comment: Positive urine benzodiazepine screening results should be confirmed by another generally accepted non-immunological method such as gas chromatography or mass spectrometry. ? Opiates Urine Positive(A) Negative : < 300 ng/mL 10/06/2021 5:04 PM [facility] Comment:Positive urine opiat e screening results should be confirmed by another generally accepted non-immunological method such as gas chromatography or mass spectrometry. Cocaine Metabolites Urine Negative Negative : < 300 ng/mL 10/06/2021 5:04 PM [facility] Phencyclidine Screen Urine Negative Negative : < 25 ng/ml 10/06/2021 5:04 PM [facility] Cannabinoids Screen Urine Positive(A) Negative : <50 ng/mL 10/06/2021 5:04 PM [facility] Comment:Positive urine canna binoids (THC) screening results should be confirmed by another generally accepted non-immunological method such as gas chromatography or mass spectrometry. Methadone Screen Urine Negative Negative : < 300 ng/mL 10/06/2021 5:04 PM [facility] Fentanyl Screen Urine Negative Negative : <1.0 ng/mL 10/06/2021 5:04 PM [facility] Urine URINE / Unknown Collection / Unknown 10/06/2021 4:17 PM FINGERNAIL TECHNICIAN 10/06/2021 4:34 PM [facility] - 10/06/2021 5:04 PM FINGERNAIL TECHNICIAN The Urine Toxicology Screening Panel does not screen for Propoxyphene, Meprobamate, Carisoprodol, Trazodone, [id number] medications and/or volatiles (Acetone, Isopropanol, Methanol or Ethylene Glycol). Ethanol, Salicylate, Acetaminophen, Tricyclic Antidepressants and several therapeutic drugs may be individually assayed in serum or plasma specimen. Toxicology testing by the [facility] is an aid to medical diagnosis and treatment of patients. No documented chain of custody was maintained. Results are intended to be used for clinical purposes only. ? Nicole Singletary DO LAB - URINE CHEMISTR Y ORDERABLES Performing Organization Address [facility]/State/[facility] Co de Phone Number [facility] [address] [place] [address], [facility] [phone] * (ABNORMAL) HEMOGLOBIN A1C (10/06/2021 4:00 PM [facility]) Hemoglobin A1c 7.9(H) 4.4 - 6.3 % 10/07/2021 10:27 AM [facility] Estimated Average Glucose 180 mg/dL 10/07/2021 10:27 AM [facility] Comment: HbA1c Interpretation: Treatment target values recommended by ADA and other clinical organizations should be used to evaluate metabolic control in patients. Treatment Target Values: Normal : < 5.7% Pre-diabetes: 5.7-6.4% Diabetes: Equal to or greater than 6.5% Reference: [place] [employer] Standards of Care in Diabetes -2014 In patients 70 years and older consider HbA1c target range of 7.0-7.5% Reference: ??Diabetes Mellitus in Older People: Position Statement on behalf of the International Association of Gerontology and Geriatrics (IAGG), the Diabetes Working Libertarian for Older People (EDWPOP), and the International Task Force of Experts in Diabetes. ??Montez Rosas et al. J [place] Medical Directors Association. 2012 Test results diagnostic of diabetes should be repeated for confirmation. The Sebia Capillary 2 assay for the measurement of HbA1c is a National Glycohemoglobin Standardization Program (NGSP)certified method. Blood BLOOD SPECIMEN / Unknown Lab Venipuncture / Unknown 10/06/2021 4:00 PM FINGERNAIL TECHNICIAN 10/06/2021 4:34 PM FINGERNAIL TECHNICIAN Nicole Singletary DO LAB - CHEMISTRY BASSAM CONTRERAS Performing Organization Address City/State/[facility] Co de Phone Number [facility] [address] [place] [address], [facility] [phone] * VITAMIN D 25-HYDROXY (10/06/2021 4:00 PM FINGERNAIL TECHNICIAN) [facility] Vitamin D, 25 Hydroxy 30.0 30.0 - 80.0 ng/mL 10/06/2021 5:17 PM FINGERNAIL TECHNICIAN [facility] Comment: The recommendations for 25-Hydroxy Vitamin [...] Reference: ?The Endocrine Society Clinical Practice Guidelines. 2010 ? Blood BLOOD SPECIMEN / Unknown Lab Venipuncture / Unknown 10/06/2021 4:00 PM FINGERNAIL TECHNICIAN 10/06/2021 4:34 PM FINGERNAIL TECHNICIAN Nicole Singletary DO LAB - CHEMISTRY BASSAM CONTRERAS Performing Organization Address [facility]/ZIP Co de Phone Number [facility] [address] [place] [address], [facility] [phone] * (ABNORMAL) COMPREHENSIVE METABOLIC PANEL (10/06/2021 4:00 PM FINGERNAIL TECHNICIAN) BUN 18 7 - 26 mg/dL 10/06/2021 4:59 PM [facility] Creatinine 0.97(H) 0.56 - 0.96 mg/dL 10/06/2021 4:59 PM [facility] Sodium 140 136 - 145 mmol/L 10/06/2021 4:59 PM [facility] Potassium 3.5 3.5 - 4.5 mmol/L 10/06/2021 4:59 PM [facility] Chloride 104 98 - 107 mmol/L 10/06/2021 4:59 PM [facility] CO2 27 22 - 29 mmol/L 10/06/2021 4:59 PM [facility] Glucose 124(H) 70 - 115 mg/dL 10/06/2021 4:59 PM [facility] Calcium 9.3 8.4 - 10.2 mg/dL 10/06/2021 4:59 PM [facility] Protein Total 6.7 6.0 - 8.3 g/dL 10/06/2021 4:59 PM [facility] Albumin 3.3(L) 3.4 - 5.0 g/dL 10/06/2021 4:59 PM [facility] Bilirubin Total 0.2 0.2 - 1.2 mg/dL 10/06/2021 4:59 PM [facility] Alkaline Phosphatase 78 40 - 150 U/L 10/06/2021 4:59 PM [facility] ALT 16 5 - 55 U/L 10/06/2021 4:59 PM [facility] AST 11 5 - 34 U/L 10/06/2021 4:59 PM [facility] Anion Gap 13 8 - 18 10/06/2021 4:59 PM [facility] BUN/Creatinine Ratio 19 7 - 23 10/06/2021 4:59 PM [facility] Osmolality Calculated 293 270 - 300 mOsm/kg 10/06/2021 4:59 PM [facility] Albumin/Globulin Ratio 1.0(L) 1.1 - 2.3 10/06/2021 4:59 PM [facility] eGFR by CKD-EPI 64(L) >=90 mL/min/1.7 3 m2 10/06/2021 4:59 PM [facility] Blood BLOOD SPECIMEN / Unknown Lab Venipuncture / Unknown 10/06/2021 4:00 PM FINGERNAIL TECHNICIAN 10/06/2021 4:34 PM FINGERNAIL TECHNICIAN Nicole Singletary DO LAB - CHEMISTRY JEROMEE BEN Performing Organization Address City/[facility] Co de Phone Number [address] [address] [phone] * CBC WITH DIFFERENTIAL (10/06/2021 4:00 PM FINGERNAIL TECHNICIAN) WBC 10.2 3.5 - 10.5 10? 3 /uL 10/06/2021 4:39 PM [facility] RBC 4.66 3.80 - 5.20 10? 6 /uL 10/06/2021 4:39 PM [facility] Hemoglobin 13.5 12.0 - 15.6 g/dL 10/06/2021 4:39 PM [facility] Hematocrit 41.4 35.0 - 45.0 % 10/06/2021 4:39 PM [facility] MCV 88.8 80.7 - 98.3 fL 10/06/2021 4:39 PM [facility] MCH 29.0 26.7 - 34.0 pg 10/06/2021 4:39 PM [facility] MCHC 32.6 30.8 - 35.9 g/dL 10/06/2021 4:39 PM [facility] Platelet Count 187 150 - 400 10? 3 /uL 10/06/2021 4:39 PM [facility] RDW-SD 41.6 36.0 - 50.0 fL 10/06/2021 4:39 PM [facility] RDW-CV 12.8 11.2 - 14.8 % 10/06/2021 4:39 PM [facility] MPV 9.4 9.4 - 12.9 fL 10/06/2021 4:39 PM [facility] nRBC Absolute 0.00 0 10? 3 /uL 10/06/2021 4:39 PM [facility] nRBC Auto 0.0 0 /100 WBC 10/06/2021 4:39 PM [facility] Neutrophils % 57.3 35.0 - 70.0 % 10/06/2021 4:39 PM [facility] Lymphocytes % 30.2 20.0 - 43.0 % 10/06/2021 4:39 PM [facility] Monocytes % 9.0 5.0 - 13.0 % 10/06/2021 4:39 PM [facility] Eosinophils % 2.4 0.0 - 6.0 % 10/06/2021 4:39 PM [facility] Basophil % 0.4 0.0 - 2.0 % 10/06/2021 4:39 PM [facility] Neutrophils Absolute 5.9 1.6 - 7.0 10? 3 /uL 10/06/2021 4:39 PM [facility] Lymphocyte Absolute 3.1 1.1 - 3.9 10? 3 /uL 10/06/2021 4:39 PM [facility] Monocytes Absolute 0.92 0.26 - 1.07 10? 3 /uL 10/06/2021 4:39 PM [facility] Eosinophils Absolute 0.25 0.00 - 0.47 10? 3 /uL 10/06/2021 4:39 PM [facility] Basophils Absolute 0.04 0.00 - 0.08 10? 3 /uL 10/06/2021 4:39 PM [facility] Immature Granulocytes % 0.7 0.0 - 1.0 % 10/06/2021 4:39 PM [facility] Immature Granulocytes Absolute 0.07 10/06/2021 4:39 PM [facility] Blood BLOOD SPECIMEN / Unknown Lab Venipuncture / Unknown 10/06/2021 4:00 PM FINGERNAIL TECHNICIAN 10/06/2021 4:34 PM FINGERNAIL TECHNICIAN Nicole Singletary DO LAB - HEMATOLOGY ORD ERABLES Performing Organization Address City/[facility]/ZIP Co de Phone Number [facility] [address] [place] [address], [facility] [phone] * TSH REFLEX FREE T4 (10/06/2021 4:00 PM FINGERNAIL TECHNICIAN) TSH 2.406 0.350 - 4.940 uIU/mL 10/06/2021 5:17 PM FINGERNAIL TECHNICIAN [facility] Blood BLOOD SPECIMEN / Unknown Lab Venipuncture / Unknown 10/06/2021 4:00 PM FINGERNAIL TECHNICIAN 10/06/2021 4:34 PM FINGERNAIL TECHNICIAN Nicole Singletary DO LAB - CHEMISTRY ORDE RABLES Performing Organization Address City/[facility]/ZIP Co de Phone Number [address] [address], [facility] [phone] documented in this encounter Visit Diagnoses Diagnosis MDD (recurrent major depressive disorder) in remission (HCC)- Primary Major depressive disorder, recurrent episode, in partial or unspecified remission documented in this encounter Care Teams Cylinder Checker Relationship Specialty Start Date End Date Neva Holden MD [address] [place] [phone] PCP - General 05/06/20 05/25/23 documented as of this encounter
--- OUTSIDE RECORDS SUMMARY | 2024-11-12 04:44 | XMS_ITS | Encounter Summary ---
Author Organization [facility] Address [address] [facility] [place] [address] Care Team Providers Care Medical Staff Manager Name Role Phone Neva Holden MD Primary Care Provider [phone] Reason for Visit * Reason Comments Refill Request Encounter Details Date Type Department Care Team (Late Contact Info) Description 07/06/2021 Refill [facility] [address] [facility] [place] [address] [place] [address] Monica Quijano MD Refill Request Social History [...] (Late Contact Info) Description 01/19/2025 11:30 AM TOBACCO SCRAP SIFTER Procedure visit [facility] U[facility] [address] [place] [address] [address] [place] [phone] Jose Oliver MD [address] [facility] 2L [place] [phone] documented as of this encounter Goals Goal [...] filedocumented in this encounter Care Teams Medical Staff Manager Relationship Specialty Start Date End Date Neva Holden MD [address] [place] [phone] PCP - General 05/06/20 05/25/23 documented as of this encounter
--- OUTSIDE RECORDS SUMMARY | 2024-11-12 04:44 | XMS_ITS | Encounter Summary ---
Author Organization [facility] Address [address] [facility] [place] [address] Care Team Providers Care Children'S Ministries Director Name Role Phone Neva Holden MD Primary Care Provider [phone] Reason for Visit * Reason Onset Date Comments LABS ONLY 10/22/2021 Encounter Details Date Type Department Care Team (Late st Contact Info) Description 10/22/2021 Telephone [facility] [address] [facility] [address] [place] [address] Adrianna Adair, RN LABS ONLY Social History [...] COVID-19? No / Unsure 10/06/2021 12:48 PM SYSTEMATIC THEOLOGY PROFESSOR documented as of this encounter Miscellaneous Notes * Telephone Encounter - Adrianna Adair RN - 10/22/2021 4:30 PM CST Patient was not sure if she was fasting at time of lab Taking Repatha, due tonight. States that she thinks she may have missed a dose or two. She states that she will start taking Repatha consistently and fast before getting blood work on 12/[address] Zuniga. Will set reminder for before appointment on 12/02 to remind patient about fasting lab EMATIC THEOLOGY PROFESSOR documented in this encounter Plan of Treatment Upcoming Encounters Date Type Department Care Team (Late st Contact Info) Description 01/19/2025 11:30 AM SYSTEMATIC THEOLOGY PROFESSOR Procedure visit [facility] - Urology [address] [place] [address] [address] [place] [phone] Jose Oliver MD [address] [place] [phone] documented as of this encounter Goals Goal [...] on filedocumented in this encounter Care Teams Children'S Ministries Director Relationship Specialty Start Date End Date Neva Holden MD [address] [place] [phone] PCP - General 05/06/20 05/25/23 documented as of this encounter
--- OUTSIDE RECORDS SUMMARY | 2024-11-12 04:44 | XMS_ITS | Encounter Summary ---
Author Organization [facility] Address [address] [place] [address] Care Team Providers Care Unemployment Examiner Name Role Phone Neva Holden MD Primary Care Provider [phone] Reason for Visit * Reason Onset Date Comments Cardiac Rehab 12/04/2020 Encounter Details Date Type Department Care Team (Late st Contact Info) Description 12/04/2020 Telephone [facility] [address] [place] [address] Chelsie Del Rio RN Cardiac Rehab Social History Tobacco Use Types Packs/Day Years [...] encounter Miscellaneous Notes * Telephone Encounter - Chelsie Del Rio RN - 12/04/2020 10:14 AM IT SECURITY SPECIALIST Pt wants to participate in home based cardiac rehab program. Zhilabst code to sign up for [facility] sent to patients email and pt aware. Pt stated she had a stent placed in her leg and her walking activity has improved including 13 lb wt loss since stent was placed. Encouraged heart healthy lifestyle and will follow up when home based rehab launched. SECURITY SPECIALIST documented in this encounter Plan of Treatment Upcoming Encounters Date Type Department Care Team (Late st Contact Info) Description 01/19/2025 11:30 AM IT SECURITY SPECIALIST Procedure visit [facility] [address] [place] [address] [address] [place] [address] Jose Oliver MD [address] [place] [address] documented as of this encounter Goals Goal [...] on filedocumented in this encounter Care Teams Unemployment Examiner Relationship Specialty Start Date End Date Neva Holden MD [address] [place] [phone] PCP - General 05/06/20 05/25/23 documented as of this encounter
--- OUTSIDE RECORDS SUMMARY | 2024-11-12 04:44 | XMS_ITS | Encounter Summary ---
Author Organization [facility] Address [address] [place] [address] Care Team Providers Care Pump Runner Name Role Phone Dane Sullivan Primary Care Provider Reason for Visit * Reason Comments Follow-up Consultation Encounter Details Date Type Department Care Team (Late st Contact Info) Description 02/09/2020 10:30 AM CDT Office Visit [facility] [address] [place] [address] Tyrone Zuniga MD Blurred vision, bilateral (Primary [...] as of this encounter Progress Notes * Lita Shah MD - 02/09/2020 10:58 AM CDT Chief Complaint Patient presents with ??? Follow-up ??? Consultation Rody Zaidi is a 59 year old female who presents for consultation for a diabetic and previously diagnosed with AMD exam. Pt was diagnosed about four years ago with AMD and has been taking AERDS. Ptendorses blurred vision for the past two years and has been told that she has the start of cataracts. Pt endorses flashes which seem to occur more often along with floaters. Pt has irritation but seems to be more with allergies. Pt also states that it feels like there is a film on her eyes but whenshe uses her gtts it seems to help although she is leaning towards that it may be due to allergies as well. Pt uses a gtts Cromyns (sp?) which was prescribed for allergies. She mentions that her sister comes her for shots due to bleeding in the back of her eyes and she feels like her symptoms are similar to her sisters. The following was also reviewed and updated: [...] tablet 11 ??? vitamin D, ergocalciferol, (DRISDOL) 54321 UNITS capsule No current facility-administered medications for this visit. Allergies Allergen Reactions ??? Risperidone Other Reported her face getting swollen ??? Haloperidol Other unknown ??? Penicillins Other unknown No past medical history on file. Past Surgical History: Procedure Laterality Date ??? Cholecystectomy 2006 ??? HX C SECTION CLASSIC 1989 ??? HX CAROTID ENDARDECTOMY 2014 ??? HX TUBAL LIGATION 1989 ??? VA FOOT/TOES SURGERY PROC UNLISTED ??? Tympanostomy 2014 Family History Problem Relation Name Age of Onset ??? Depression Mother ??? Alcohol abuse Father ??? Depression Sister ??? Thyroid Disease Neg Hx Social History Tobacco Use ??? Smoking status: Current Every Day Smoker ??? Smokeless tobacco: Never Used Substance Use Topics ??? Alcohol use: No ??? Drug use: Yes Types: Marijuana Base Eye Exam Visual Acuity (Snellen - Linear) Right Left Dist cc 20/25-1 20/20-2 Dist ph cc NI Correction: Glasses Pt wore her prescription sunglasses to do testing as she didn't have her regular glasses. She has ordered new glasses but hasn't been able to pick them up due to the coronavirus and the store being closed. Tonometry (Tonopen, 10:43 AM) Right Left Pressure 21 21 Pupils Dark Light APD Right 6 5 None Left 6 5 None Visual Matthew Left Right Full Full Extraocular Movement Right Left Full Full Dilation Both eyes: 1.0% Mydriacyl, 2.5% Sumit Synephrine @ 10:43 AM Slit Lamp and Fundus Exam External Exam Right Left External Normal Normal Slit Lamp Exam Right Left Lids/Lashes 1+ Meibomian gland dysfunction 1+ Meibomian gland dysfunction Conjunctiva/Sclera White and quiet White and quiet Cornea Clear Clear Anterior Chamber Deep and quiet Deep and quiet Iris Round and dilated Round and reactive Lens 1+ NS, 2+ CSC 1+ NS, 2+ CSC Vitreous Normal Normal Fundus Exam Right Left Disc Normal Normal C/D Ratio 0.5 0.5 Macula large soft drusen large soft drusen Vessels Normal Normal Periphery Normal Normal Study findings: OCT macula OD: drusen, no edema OS: drusen, no edema OCTA OD: no NV OS: no NV OCT Nerve OD: 83, normal OS: 83 normal GC OD:82 normal OS: 85 normal Extended Ophthalmoscopy OD: extended large soft drusen OS: extended large soft drusen Assessment/Plan Royd Zaidi is a 59 year old female 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 I agree with the findings and plan of care as documented by the resident. I confirm history, exam, assessment and plan. In addition, I interpreted the diagnostic and study tests myself and agree with the reported interpretation in the note/chart. The plan was discussed with the patient and follow up compliance was agreed upon. I have made changes as needed and added new relevant medical information. Tyrone Zuniga M.D. documented in this encounter Plan of Treatment Upcoming Encounters Date Type Department Care Team (Late st Contact Info) Description 01/19/2025 11:30 AM BOBBIN TRUCKER Procedure visit [facility] - Urology [address] [place] [address] [address] [place] [address] Jose Oliver MD [address] [place] [address] documented as of this encounter Procedures Procedure Name Priority Date/Time Associated Diagnosis Comments OPH OCT TEST [facility] Routine 02/09/2020 12:00 AM CDT Blurred vision, bilateral documented in this encounter Results * OPH OCT TEST [facility] (02/09/2020 12:00 AM CDT) Anatomical Region Laterality Modality Other 02/09/2020 Tyrone Zuniga MD [facility]PHTHALMOLO [facility] ORDERABLES documented in this encounter Visit Diagnoses Diagnosis Blurred vision, bilateral- Primary Other specified visual disturbances documented in this encounter Care Teams Pump Runner Relationship Specialty Start Date End Date Dane Sullivan DO PCP - General 06/24/17 05/05/20 documented as of this encounter
--- OUTSIDE RECORDS SUMMARY | 2024-11-12 04:44 | XMS_ITS | Encounter Summary ---
Author Organization [facility] Address [address] [place] [address] Care Team Providers Care Envelope Sealing Machine Operator Name Role Phone Neva Holden MD Primary Care Provider [phone] Reason for Visit * Auth/Cert Specialty Diagnoses / Procedures Referred By Contac t Referred To Contact Diagnoses Stable angina pectoris (HCC) Procedures CCL CARDIAC CATH LEFT Referral ID Status Reason Start Date Expiration Date Visits Re quested Visits Authorized [id number] 1 1 Encounter Details Date Type Department Care Team (Latest Contact Info) Description 10/24/2020 5:57 AM BATCH WEIGHER - 10/24/2020 4:54 PM BATCH WEIGHER Hospital Encounter [facility] [address] [place] [address] Monica Quijano MD Cardiology Discharge Disposition: Home or Self Care Social [...] COVID-19? No / Unsure 10/22/2020 8:01 AM BATCH WEIGHER documented as of this encounter Last Filed Vital Signs Vital Sign Reading Time Taken Comments Blood Pressure 126/90 10/24/2020 4:30 PM BATCH WEIGHER Pulse 92 10/24/2020 4:30 PM BATCH WEIGHER Temperature 37.1 ??C (98.8 ??F) 10/24/2020 6:02 AM CS T Respiratory Rate 22 10/24/2020 4:30 PM BATCH WEIGHER Oxygen Saturation 97% 10/24/2020 4:30 PM BATCH WEIGHER Inhaled Oxygen Concentration - - Weight 91.4 kg (201 lb 9.6 oz) 10/24/2020 6:02 A M BATCH WEIGHER Height 160 cm (5' 3 ) 10/24/2020 6:02 AM BATCH WEIGHER Body Mass Index 35.71 10/24/2020 6:02 AM BATCH WEIGHER documented in this encounter Discharge Instructions * Discharge Instructions* Ld Altamirano MD - 10/24/2020 1:58 PM BATCH WEIGHER Post Cardiac catheterization care: .Going Home ? Have someone drive you home. You should not drive at all until at least 24 hours after your procedure. If medicine was used to help you relax during the procedure, you should not make any importantpersonal or business decisons until the next day. ? Rest quietly today. Care of the Incision ? You may shower 24 hours after your procedure. Remove the bandage over the site before you take a shower. ? For the next 3 days: - Gently clean the site using soap and water while in the shower. Gently dry the site. Do not rub the site. - You may apply an antibacterial ointment (i.e. Neosporin??). Do not use lotions or powders in the area. - Cover the site with a band-aid or dressing. Make sure to cover the entire area. A square band-aidworks well. - Keep the site clean and dry to prevent infection. If the band-aid or dressing becomes wet, remove it and replace it with a new one. - Inspect the site daily for redness, swelling, or drainage. Activities ? Do not lift more than 10 pounds for 1 week or until the wound has healed. ? No vigorous activity or straining for 1 week like riding a bicycle or doing sit-ups. Walking on aflat surface for exercise is preferred during this first week. ? Do not sit in a bathtub, hot tub, or go into a swimming pool for 1 week or until the site is completely healed. What to Expect ? Soreness or tenderness at the site that may last 1 week. ? Most procedure sites do not ooze blood. Mild oozing of blood from the site may be present but should not soak more than two dressing changes. ? Bruising at the site that may take 2-3 weeks to go away. ? A small lump (dime to quarter size) which may last up to 6 weeks. What to Do for Minor Pain ? You may take acetaminophen (Tylenol??) 325mg tablets every 4-6 hours. ? You may place an ice pack or warm pack over the site for 20 minutes every 2 hours. Gently wipe the site after you remove the pack if it is wet. When and How to Call for Help ? If bleeding or sudden swelling should occur at the site. Apply direct pressure. If the bleeding does not stop after 10 minutes of placing constant pressure on the site, call 911 for help. Keep pressing until you get help. ? If your leg becomes numb, cold, or turns blue, call 911 for emergency help. Call your doctor right away if you notice ? Any signs of infection including: o Redness, swelling, or drainage at the site. o Prolonged pain. o Fever over 100.4??F for two readings taken a few hours apart. ? Severe pain. H WEIGHER documented in this encounter Medications at Time [...] evening meal 12/27/2016 vitamin D, ergocalciferol, (DRISDOL) 09862 UNITS capsule Take 1 (one) capsule by mouth every 7 days 01/29/2019 albuterol (PROVENTIL;VENTOLIN) (2.5 MG/3ML) 0.083% nebulizer solution 09/11/2016 albuterol HFA (VENTOLIN HFA) 108 (90 BASE) MCG/ACT inhaler 09/20/2017 11/03/2021 ALPRAZolam (XANAX) 1 MG tabletIndications:An xiety Take 1 tablet by mouth 3 times daily as needed for Anxiety Reasons: Feeling Anxious 90 tablet 2 08/21/2020 11/12/2020 aspirin EC (ECOTRIN) 325 MG tablet 12/15/2015 01/11/2023 budesonide-formotero l (SYMBICORT) 80-4.5 MCG/ACT inhaler 06/23/2017 07/30/2021 cetirizine [...] daily 08/19/2020 12/08/2021 FLUoxetine (PROZAC) 40 MG capsuleIndications:M ajor Depressive Disorder Take 1 capsule by mouth once daily for 90 days Reasons: Major Depressive Disorder 30 capsule 2 08/21/2020 11/19/2020 fluticasone propionate (FLONASE) 50 MCG/ACT nasal spray fluticasone propionate 50 mcg/actuation nasal spray,suspension 2019 12/08/2021 FUROSEMIDE PO Take 40 mg by mouth once daily 06/10/2021 HYDROcodone-acetamin ophen (NORCO) 10-325 MG tablet Take 1 tablet by mouth 2 times daily 5/325 mg 08/28/2020 hydrocortisone (HYTONE) 2.5 % cream hydrocortisone 2.5 % topical cream with perineal applicator 03/17/2022 hydrocortisone, rectal, (ANUSOL-HC) 2.5 % creamIndications:Int ernal hemorrhoids Insert into the rectum 2 times [...] 10/01/2020 03/03/2021 nicotine polacrilex (NICOTINE MINI) 2 MGIndications:Nicoti ne Dependence Take 1 Each by mouth as [...] mEq by mouth once daily 09/25/2017 03/17/2022 rosuvastatin (CRESTOR) 10 MG tablet Take 1 tablet by mouth once daily 90 tablet 3 10/01/2020 12/03/2020 traZODone (DESYREL) 50 MG tablet trazodone 50 mg tablet TAKE 1 TABLET BY MOUTH ONCE DAILY AT BEDTIME 03/19/2021 varenicline (CHANTIX STARTING MONTH ) 0.5 MG X 11 & 1 MG X 42 tablets FPD UTD 12/25/2019 06/25/2021 documented as of this encounter Progress Notes * Karishma Concepcion RN - 10/24/2020 9:58 AM CST ACT 256 H WEIGHER * Karishma Concepcion RN - 10/24/2020 9:18 AM CST ACT 335 H WEIGHER documented in this encounter H&P Notes * Ld Altamirano MD - 10/24/2020 7:34 AM CST CARDIAC MOLDED PARTS INSPECTOR PRE PROCEDURE APPROPRIATE USE CRITERIA TOOL History of Present Illness:She is a pleasant 59 year old female with a history of PVD (s/p BL iliacstenting, L CEA, R??), DMII, active tobacco use. Patient reports 6 months of chest pain. She is on two antianginal and still had chest pain with dyspnea. Coming for [facility] for evaluation. Also reported abnormal test in past but no image or report available. Per outside science professor Stress test done in 01/2020 was clinically and electrocardiographically negative. SPECT images reported mild fixed defect in the inferior wall with normal wall motion Echocardiogram done 04/17/2016 shows EF 65-70%, Mild concentric LVH. Grade I diastolic dysfunction, trace mitral regurgitation, mild tricuspid regurgitation. RVSP 35 mm Hg. Heart Failure: No Stress Test Preformed: None Home Med List: Medications Prior to Admission Medication Sig Dispense [...] mg by mouth 2 times daily ??? clopidogrel (PLAVIX) 75 MG tablet Take [...] HYDROcodone-acetaminophen (NORCO) 10-325 MG tablet ??? hydrocortisone (HYTONE) 2.5 % cream hydrocortisone 2.5 % topical cream with perineal applicator ??? hydrocortisone, rectal, (ANUSOL-HC) 2.5 % cream Insert into the rectum 2 times daily 2 tube 3 ??? ibuprofen (MOTRIN) 600 MG tablet ibuprofen 600 mg tablet TAKE 1 TABLET BY MOUTH THREE TIMES DAILY ??? isosorbide mononitrate CR 24hr (IMDUR) 60 MG tablet Take 1 tablet by mouth once daily 90 tablet4 ??? losartan (COZAAR) 100 MG tablet ??? metFORMIN (GLUCOPHAGE) 500 MG tablet ??? metoprolol succinate XL 24hr (TOPROL XL) 100 MG tablet Take 1 tablet by mouth once daily 90 tablet 3 ??? nicotine polacrilex (NICOTINE MINI) 2 MG Take 1 Each by mouth as needed Reasons: Nicotine Addiction (Patient not taking: Reported on 10/24/2020) 20 lozenge 2 ??? nitroGLYCERIN (NITROSTAT) 0.4 MG tablet ??? omeprazole EC (PRILOSEC OTC) 20 MG tablet ??? ondansetron, disintegrating, (ZOFRAN ODT) 4 MG tablet DISSOLVE 1 TABLET IN MOUTH EVERY 6 TO 8 HOURS NEEDED FOR NAUSEA ??? potassium chloride (KLOR-CON M) 20 MEQ tablet ??? rosuvastatin (CRESTOR) 10 MG tablet Take 1 tablet by mouth once daily (Patient not taking: Reported on 10/24/2020) 90 tablet 3 ??? traZODone (DESYREL) 50 MG tablet trazodone 50 mg tablet TAKE 1 TABLET BY MOUTH ONCE DAILY AT BEDTIME ? ? varenicline (CHANTIX STARTING MONTH LISS) 0.5 MG X 11 & 1 MG X 42 tablets FPD UTD ??? vitamin D, ergocalciferol, (DRISDOL) 93866 UNITS capsule Anti-Anginal Medication within 2 Weeks: Yes: Beta Wale and Long Acting Nitrates Past Medical & Surgical History Illnesses: Past Medical History: Diagnosis Date ??? Anxiety [...] 2014 ??? HX TUBAL LIGATION 1989 ??? AK FOOT/TOES SURGERY PROC UNLISTED ??? Tympanostomy 2013 Allergies Allergen Reactions ??? Penicillins Other and Urticaria unknown Reaction: Hives, ??? Risperidone Other Reported her face getting swollen ??? Haloperidol Other unknown ??? Codeine Itching ??? Penicillin G Other This patient's prior H&P was reviewed, the patient was examined, and no change has occurred in the patient's condition since the prior H&P was completed. General: Well-developed in NAD. HEENT: NC/AT. PERRL. EOMI. MMM. Neck: Supple. No tenderness, enlargement, JVD or LAD noted. Lungs: CTAB. No wheezing or crackles heard. No respiratory distress. Heart: RRR. +S1, S2. No murmurs or gallops appreciated. Abdomen: Soft. NT/ND. BS active. No organomegaly. Ext/MS: No edema, cyanosis, or erythema. Neuro: A&O x3. No focal deficits noted. Skin: No obvious rashes or lesions noted. Pulses: Radial : 2+ bilateral Femoral artery: 2+ bilateral Consent: Risk, benefits and alternatives were discussed with patient and consent for procedure was obtained. Airway: Mallampati III (soft palate, base of uvula visible) ASA Class: {Class 3 - Severe Systemic Disease, Definite Functional Limitations Impression/Cardiac Catheterization Indication(Choose all that apply): Worsening Angina Chest Pain Symptom Assessment: Typical Angina Cardiac Instability: No Procedure Acuity Status: Elective Planned Course of Treatment/Procedure: Coronary angiography and Left Heart Cath Sedation: Fentanyl and Versed Expected Level: Minimal anxiolysis Indication: Sedation is required to allow for performance of procedure. Monitoring: heart rate, visor installer, continuous pulse oximetry, frequent blood pressure checks,level of consciousness, IV access, constant attendance by RN until patient recovered, and emergencyairway equipment available. Based on the above criteria, I believe that patient meets clinical indications for a cardiac catheterization. Ld Altamirano MD 10/24/2020 7:34 AM H WEIGHER documented in this encounter Procedure Notes * Chantale Delgado MD - 10/24/2020 10:04 AM CST Unit that procedure is to be preformed: skilled labor Pre-Procedure Diagnosis: Angina Procedure: [facility] Post Procedure Diagnosis: Non obstructive CAD, Negative DFR to proximal LAD Complications: none Monitoring: Monitoring consisted of: constant attendance by MD Response: vital signs stable Patient Status Post Procedure: Activity: Able to move four extremities voluntarily on command = 2 Respiration: Able to breathe deeply and cough freely = 2 Circulation: Blood pressure +/- 20mm Hg of normal = 2 Consciousness: Fully awake =2 Color: 2 - color is WNL [place] Score: 10 Temperature: Normalthermic Pain: 0 Post sedation nausea & vomiting present: no nausea and vomiting Post-sedation hydration status Is adequate: Yes Total Physician Drug Administration / Monitoring Time: 45 minutes. Patient was monitored during recovery and returned to pre-procedure baseline. Discharge plan: Home H WEIGHER * Ld Altamirano MD - 10/24/2020 7:33 AM CST PRE-SEDATION PHYSICIAN ASSESSMENT Date: 10/23/2020 Time: 7:33 AM Rody Zaidi is a 59 year old female Pre-procedure diagnosis: Chest Pain Planned Procedure: Coronary angiography, Left Heart Cath Medications, vital signs and labs results reviewed prior to procedure: Yes Allergies Allergen Reactions ??? Penicillins Other and Urticaria unknown Reaction: Hives, ??? Risperidone Other Reported her face getting swollen ??? Haloperidol Other unknown ??? Codeine Itching ??? Penicillin G Other SEDATION PLAN: moderate ASA Physical Status Classification: 3 (A patient with severe systemic disease) Mallampati Airway Classifications III (soft palate, base of uvula visible) Other indicators of a difficult intubation include: Obesity Patient airway and condition has been evaluated immediately prior to sedation and/or analgesia: Yes H WEIGHER documented in this encounter OR Notes * Brief Op Note - Chantale Delgado MD - 10/24/2020 10:03 AM BATCH WEIGHER Brief Op Note Procedure: [facility] Patient Name: Rody Zaidi Date of Service: 10/24/2020 Pre-Op Diagnosis: Angina Post-Op Diagnosis: Non obstructive CAD, negative DFR to proximal LAD. Machine Designer(s): Mart Peña MD; Ld Altamirano MD Anesthesia Type: Moderate Complications: none Findings: Non obstructive CAD, negative DFR to proximal LAD. EBL: minimal blood loss Recs: Bedrest 4 hrs. Chantale Delgado MD H WEIGHER documented in this encounter Plan of Treatment Upcoming Encounters Date Type Department Care Team (Late st Contact Info) Description 01/19/2025 11:30 AM BATCH WEIGHER Procedure visit [facility] - Urology [address] [place] [address] [address] [place] [phone] Jose Oliver MD [address] [place] [id number] documented as of this encounter Goals Goal [...] Procedure Name Priority Date/Time Associated Diagnosis Comments LAB RESULTS ORDER 11/02/2020 6:0 6 PM BATCH WEIGHER CARDIAC PROCEDURE ORDER 11/02/2020 4:17 PM BATCH WEIGHER CCL CARDIAC CATH LEFT Routine 10/24/2020 10:29 AM BATCH WEIGHER Stable angina pectoris GLUCOSE - POINT OF CARE Routine 10/24/2020 6:40 AM BATCH WEIGHER documented in this encounter Results * LAB RESULTS ORDER (11/02/2020 6:06 PM BATCH WEIGHER) Narrative 11/02/2020 6:06 PM BATCH WEIGHER Ordered by an unspecified provider. Scanned Document LAB - THERAPEUTIC DR UG MONITORING ORDERABLES * CARDIAC PROCEDURE ORDER (11/02/2020 4:17 PM BATCH WEIGHER) Narrative 11/02/2020 4:17 PM BATCH WEIGHER Ordered by an unspecified provider. Scanned Document CARDIAC SERVICES ORD ERABLES * (ABNORMAL) GLUCOSE - POINT OF CARE (10/24/2020 6:40 AM BATCH WEIGHER) [facility] Glucose WB/POC 136(H) 70 - 115 mg/dL 10/24/2020 10:24 AM BATCH WEIGHER [facility] Specimen Type Venous 10/24/2020 10:24 AM BATCH WEIGHER [facility] Blood BLOOD SPECIMEN / Unknown 10/24/2020 6:40 AM BATCH WEIGHER 10/24/2020 10:24 AM BATCH WEIGHER Monica Quijano MD LAB - POINT OF CARE ORDERABLES [facility] [address] [address], [facility] [phone] documented in this encounter Visit Diagnoses Diagnosis Essential (primary) hypertension- Primary Unspecified essential hypertension PAD (peripheral artery disease) (HCC) Unspecified disorders of arteries and arterioles CAD in [place] artery Coronary atherosclerosis of [place] coronary artery CAD in [place] artery Coronary atherosclerosis of [place] coronary artery documented in this encounter Administered Medications Inactive Administered Medications - up to 3 most recent administrations Medication Order MAR Action Action Date Dose Rate Site 0.9% NaCl infusion Intravenous, CONTINUOUS PRN, Starting on [place] 10/24/20 at 0808, Until [place] 10/24/20 at 1006 $ New Bag/Syringe 10/24/2020 8:08 AM BATCH WEIGHER 10 mL/hr 10 mL/hr 0.9% NaCl injection 1-10 mL 1-10 mL, Intracatheter, PRN, Other, peripheral line flush, Starting on [place] 10/24/20 at 1006, Until [place] 10/24/20 at 1755, Flush peripheral IV catheter with 1-10 mL of normal saline before and after medications and prn to clear blood from the line or to verify patency. 0.9% NaCl injection 3 mL 3 mL, Intracatheter, EVERY 8 HOURS, First dose on [place] 10/24/20 at 1400, Until Discontinued, Flush peripheral IV catheter with 3 mL of normal saline every 8 hours. acetaminophen (TYLENOL) tablet 500 mg 500 mg, Oral, EVERY 4 HOURS PRN, Moderate Pain, Starting on [place] 10/24/20 at 1358, Until [place] 10/24/20 at 1755 ALPRAZolam (XANAX) tablet 1 mg 1 mg, Oral, ONCE CARDIOLOGY, 1 dose, On [place] 10/24/20 at 1145 $ Given 10/24/2020 11:41 AM BATCH WEIGHER 1 mg fentaNYL (PF) (SUBLIMAZE) injection Intravenous, ONCE PRN, Starting on [place] 10/24/20 at 0832, Until [place] 10/24/20 at 0928 $ Given 10/24/2020 9:28 AM BATCH WEIGHER 50 mcg $ Given 10/24/2020 8:32 AM BATCH WEIGHER 25 mcg fentaNYL (PF) (SUBLIMAZE) injection Intravenous, ONCE PRN, Starting on [place] 10/24/20 at 1025, Until [place] 10/24/20 at 1025 $ Given 10/24/2020 10:25 AM BATCH WEIGHER 25 mcg heparin injection Intravenous, ONCE PRN, Starting on [place] 10/24/20 at 0906, Until [place] 10/24/20 at 0906 $ Given 10/24/2020 9:06 AM BATCH WEIGHER 7,300 Units heparinized saline 2 units/ml infusion Intravenous, CONTINUOUS PRN, Starting on [place] 10/24/20 at 0808, Until [place] 10/24/20 at 1007 $ New Bag/Syringe 10/24/2020 8:08 AM BATCH WEIGHER 1,000 mL HYDROcodone-acetaminophen (NORCO) 5-325 MG tablet 1 tablet 1 tablet, Oral, ONCE, 1 dose, On [place] 12/10/20 at 1445, Post-op $ Given 10/24/2020 2:32 PM BATCH WEIGHER 1 tablet iopamidol (ISOVUE 370) 76 % contrast Intravenous, ONCE PRN, Starting on [place] 10/24/20 at 0925, Until [place] 10/24/20 at 0925 $ Given 10/24/2020 9:25 AM BATCH WEIGHER 80 mL lidocaine (XYLOCAINE) 1 % injection Infiltration, ONCE PRN, Starting on [place] 10/24/20 at 0833, Until [place] 10/24/20 at 0846 $ Given 10/24/2020 8:46 AM BATCH WEIGHER 8 mL $ Given 10/24/2020 8:33 AM BATCH WEIGHER 2 mL midazolam (VERSED) injection Intravenous, ONCE PRN, Starting on [place] 10/24/20 at 0832, Until [place] 10/24/20 at 0832 $ Given 10/24/2020 8:32 AM BATCH WEIGHER 0.5 mg nitroGLYCERIN 100 mcg/ml injection Intra-coronary, ONCE PRN, Starting on [place] 10/24/20 at 0835, Until [place] 10/24/20 at 0835 $ Given 10/24/2020 8:35 AM BATCH WEIGHER 100 mcg documented in this encounter Active and Recently Administered Medications Times are shown in BATCH WEIGHER. Scheduled Medication Order 10/22/2020 10/23/2020 10/24/2020 0.9% NaCl injection 3 mL(Linked Group 1) 3 mL, Intracatheter, EVERY 8 HOURS, First dose on [place] 10/24/20 at 1400, Until Discontinued, Flush peripheral IV catheter with 3 mL of normal saline every 8 hours. 1400 (Due) ALPRAZolam (XANAX) tablet 1 mg (COMPLETED) 1 mg, Oral, ONCE CARDIOLOGY, 1 dose, On [place] 10/24/20 at 1145 1141 ($ Given - Prov ider: Franklin Hendrickson RN) HYDROcodone-acetaminophen (NORCO) 5-325 MG tablet 1 tablet (COMPLETED) 1 tablet, Oral, ONCE, 1 dose, On [place] 10/24/20 at 1445, Post-op 1432 ($ Given - Prov ider: Maria L Castellon, ADONAY) PRN Medication Order 10/22/2020 10/23/2020 10/24/2020 0.9% NaCl infusion (COMPLETED) Intravenous, CONTINUOUS PRN, Starting on [place] 10/24/20 at 0808, Until [place] 10/24/20 at 1006 0808 ($ New Bag/Syri nge - Provider: Karishma Concepcion RN)1006 (Stopped - Provider: Karishma Concepcion RN) 0.9% NaCl injection 1-10 mL(Linked Group 1) 1-10 mL, Intracatheter, PRN, Other, peripheral line flush, Starting on [place] 12 at 1006, Until [place] 10/24/20 at 1755, Flush peripheral IV catheter with 1-10 mL of normal saline before and after medications and prn to clear blood from the line or to verify patency. acetaminophen (TYLENOL) tablet 500 mg 500 mg, Oral, EVERY 4 HOURS PRN, Moderate Pain, Starting on [place] 10/24/20 at 1358, Until [place] 12 at 1755 fentaNYL (PF) (SUBLIMAZE) injection (COMPLETED) Intravenous, ONCE PRN, Starting on [place] 10/24/20 at 0832, Until [place] 10/24/20 at 0928 0832 ($ Given - Prov ider: Tammi Ordaz RN)0928 ($ Given - Provider: Tammi Ordaz RN) fentaNYL (PF) (SUBLIMAZE) injection (COMPLETED) Intravenous, ONCE PRN, Starting on [place] 10/24/20 at 1025, Until [place] 10/24/20 at 1025 1025 ($ Given - Prov ider: Karishma Concepcion RN) heparin injection (COMPLETED) Intravenous, ONCE PRN, Starting on [place] 10/24/20 at 0906, Until [place] 10/24/20 at 0906 0906 ($ Given - Prov ider: Karishma Concepcion RN) heparinized saline 2 units/ml infusion (COMPLETED) Intravenous, CONTINUOUS PRN, Starting on [place] 12 at 0808, Until [place] 10/24/20 at 1007 0808 ($ New Bag/Syri nge - Provider: Karishma Concepcion RN - Comment: on table and in acist)1007 (Stopped - Provider: Karishma Concepcion RN) iopamidol (ISOVUE 370) 76 % contrast (COMPLETED) Intravenous, ONCE PRN, Starting on [place] 10/24/20 at 0925, Until [place] 10/24/20 at 0925 0925 ($ Given - Prov ider: Mart Peña MD) lidocaine (XYLOCAINE) 1 % injection (COMPLETED) Infiltration, ONCE PRN, Starting on [place] 10/24/20 at 0833, Until [place] 10/24/20 at 0846 0833 ($ Given - Prov ider: Ld Altamirano MD)0846 ($ Given - Provider: Ld Altamirano MD) midazolam (VERSED) injection (COMPLETED) Intravenous, ONCE PRN, Starting on [place] 10/24/20 at 0832, Until [place] 10/24/20 at 0832 0832 ($ Given - Prov ider: Tammi Ordaz RN) nitroGLYCERIN 100 mcg/ml injection (COMPLETED) Intra-coronary, ONCE PRN, Starting on [place] 10/24/20 at 0835, Until [place] 10/24/20 at 0835 0835 ($ Given - Prov ider: Ld Altamirano MD) Linked Groups Order Group 1: SALINE LOCK, INSERT AND MAINTAIN (CANCELED) Routine, CONTINUOUS, Starting on [place] 10/24/20 at 1015, Until Specified, New collection And 0.9% NaCl injection 3 mLJump to med 3 mL, Intracatheter, EVERY 8 HOURS, First dose on [place] 10/24/20 at 1400, Until Discontinued, Flush peripheral IV catheter with 3 mL of normal saline every 8 hours. And 0.9% NaCl injection 1-10 mLJump to med 1-10 mL, Intracatheter, PRN, Other, peripheral line flush, Starting on [place] 10/24/20 at 1006, Until [place] 10/24/20 at 1755, Flush peripheral IV catheter with 1-10 mL of normal saline before and after medications and prn to clear blood from the line or to verify patency. documented in this encounter Care Teams Envelope Sealing Machine Operator Relationship Specialty Start Date End Date Neva Holden MD Count includes the [facility] [place] [address] PCP - General 05/06/20 05/25/23 documented as of this encounter
--- OUTSIDE RECORDS SUMMARY | 2024-11-12 04:44 | XMS_ITS | Encounter Summary ---
Author Organization [facility] Address [address] [place] [address] Care Team Providers Care Chief Deputy Coroner Name Role Phone Neva Holden MD Primary Care Provider [phone] Reason for Visit * Reason Onset Date Comments Procedure Question 10/15/2020 Encounter Details Date Type Department Care Team (Late Contact Info) Description 10/15/2020 Telephone [facility] [address] [facility] [address] [place] [address] Monica Quijano MD Procedure Question Social History Tobacco Use Types Packs/Day Years [...] Telephone Encounter - Jacquelin Malloy RN - 10/15/2020 4:04 PM CST Patient called office to clarify instructions for clopidogrel prior to planned cath on 10/24. Patient given instructions to continue plavix without holding. She verbalized understanding. NE HEAD REPAIRER documented in this encounter Plan of Treatment Upcoming Encounters Date Type Department Care Team (Late Contact Info) Description 01/19/2025 11:30 AM ENGINE HEAD REPAIRER Procedure visit [facility] - Urology [address] [place] [address] [address] [place] [address] Jose Oliver MD [address] [place] [address] documented as of this encounter Goals Goal [...] on filedocumented in this encounter Care Teams Chief Deputy Coroner Relationship Specialty Start Date End Date Neva Holden MD [address] [place] [phone] PCP - General 05/06/20 05/25/23 documented as of this encounter
--- OUTSIDE RECORDS SUMMARY | 2024-11-12 04:44 | XMS_ITS | Encounter Summary ---
Author Organization [facility] Address [address] [facility] [place] [address] Care Team Providers Care Metal Reed Tuner Name Role Phone Neva Holden MD Primary Care Provider [phone] Reason for Referral * Radiology Services (Routine) - Closed Specialty Diagnoses / Procedures Referred By Contac t Referred To Contact Vascular Lab Diagnoses Bilateral carotid artery stenosis Procedures VAS CAROTID DUPLEX BILATERAL Jose A Clark MD [address] [facility] 2L [place] [address] [facility] Vascular Us [facility] [place] [address] Referral ID Status Reason Start Date Expiration Date Visits Re quested Visits Authorized [id number] Closed 10/03/2020 10/03/2021 1 1 EW TRAINER Reason for Visit * Radiology Services (Routine) - Closed Specialty Diagnoses / Procedures Referred By Contac t Referred To Contact Vascular Lab Diagnoses Bilateral carotid artery stenosis Procedures VAS CAROTID DUPLEX BILATERAL Jose A Clark MD [address] [facility] 2L [place] [address] [facility] Vascular Us [address] [place] [address] Referral ID Status Reason Start Date Expiration Date Visits Re quested Visits Authorized [id number] Closed 10/03/2020 10/03/2021 1 1 Encounter Details Date Type Department Care Team (Latest Contact Info) Description 10/22/2020 8:00 AM REVIEW TRAINER - 10/22/2020 8:08 AM REVIEW TRAINER Hospital Encounter [facility] VASCULAR US [address] [place] [address] Jose A Clark MD [address] [facility] [address] [place] [address] Discharge Disposition: Home or Self Care Social [...] COVID-19? No / Unsure 10/22/2020 8:01 AM REVIEW TRAINER documented as of this encounter Medications at [...] evening meal 12/27/2016 vitamin D, ergocalciferol, (DRISDOL) 47835 UNITS capsule Take 1 (one) capsule by [...] st Contact Info) Description 01/19/2025 11:30 AM REVIEW TRAINER Procedure visit [facility] Group - Urology [address] [place] [address] [address] [place] [address] Jose Oliver MD [address] [place] [address] documented as of this encounter Goals Goal [...] Name Priority Date/Time Associated Diagnosis Comments VAS CAROTID DUPLEX BILATERAL Routine 10/22/2020 9:27 AM REVIEW TRAINER Bilateral carotid artery stenosis documented in this encounter Results * VAS CAROTID DUPLEX BILATERAL (10/22/2020 9:27 AM REVIEW TRAINER) Anatomical Region Laterality Modality Neck Intravascular Ul trasound 10/22/2020 9:04 AM REVIEW TRAINER Narrative Procedure Note Eric Costa MD - 10/22/2020 Jose A Clark MD VASCULAR LAB ORDERAB LES documented in this encounter Visit Diagnoses Diagnosis Bilateral carotid artery stenosis Occlusion and stenosis of multiple and bilateral precerebral arteries without mention of cerebral infarction documented in this encounter Care Teams Metal Reed Tuner Relationship Specialty Start Date End Date Neva Holden MD [address] [place] [phone] PCP - General 05/06/20 05/25/23 documented as of this encounter
--- OUTSIDE RECORDS SUMMARY | 2024-11-12 04:44 | XMS_ITS | Encounter Summary ---
Author Organization [facility] Address [address] [facility] [place] [address] Care Team Providers Care Independent Distributor Name Role Phone Neva Holden MD Primary Care Provider [phone] Reason for Visit * Reason Comments Refill Request Encounter Details Date Type Department Care Team (Late Contact Info) Description 07/01/2021 Refill [facility] [address] [facility] [address] [place] [address] Monica Quijano MD Refill Request Social History [...] (Late Contact Info) Description 01/19/2025 11:30 AM NAVAL GUNFIRE LIAISON OFFICER Procedure visit [facility] [address] [place] [address] [address] [place] [phone] Jose Oliver MD [address] [facility] 2L DIV [place] [phone] documented as of this encounter Goals Goal [...] on filedocumented in this encounter Care Teams Independent Distributor Relationship Specialty Start Date End Date Neva Holden MD [address] [place] [phone] PCP - General 05/06/20 05/25/23 documented as of this encounter
--- OUTSIDE RECORDS SUMMARY | 2024-11-12 04:44 | XMS_ITS | Encounter Summary ---
Author Organization [facility] Address [address] [place] [address] Care Team Providers Care Optimization Specialist Name Role Phone Neva Holden MD Primary Care Provider [phone] Encounter Details Date Type Department Care Team (Late Contact Info) Description 11/24/2021 Orders Only [facility] Pul[facility], Critical Care [facility] Medicine [address] [place] [phone] Bora Ferreira MD [address] [place] [address] Social History Tobacco Use Types Packs/Day Years [...] COVID-19? No / Unsure 12/02/2021 9:22 AM CARDIOVASCULAR RN documented as of this encounter Plan of Treatment Upcoming Encounters Date Type Department Care Team (Late Contact Info) Description 01/19/2025 11:30 AM CARDIOVASCULAR RN [facility] [address] [place] [address] [address] [place] [address] Jose Oliver MD [address] [place] [address] documented as of this encounter Goals Goal [...] on filedocumented in this encounter Care Teams Optimization Specialist Relationship Specialty Start Date End Date Neva Holden MD [address] [place] [phone] PCP - General 05/06/20 05/25/23 documented as of this encounter
--- OUTSIDE RECORDS SUMMARY | 2024-11-12 04:44 | XMS_ITS | Encounter Summary ---
Author Organization [facility] Address [address] [facility] [place] [address] Care Team Providers Care Custom Grinder Name Role Phone Neva Holden MD Primary Care Provider [phone] Encounter Details Date Type Department Care Team (Late Contact Info) Description 02/21/2021 Orders Only [facility] NEURO&PSYCH [address] [place] [phone] Kathleen Stevenson MD [address] [place] [address] Social History Tobacco Use Types Packs/Day Years [...] (Late Contact Info) Description 01/19/2025 11:30 AM COMPUTER BOOKKEEPER Procedure visit [facility] - Urology [address] [place] [address] [address] [place] [phone] Jose Oliver MD [address] [facility] 2L [place] [phone] documented as of this encounter Goals Goal [...] filedocumented in this encounter Care Teams Custom Grinder Relationship Specialty Start Date End Date Neva Holden MD [address] [place] [phone] PCP - General 05/06/20 05/25/23 documented as of this encounter
--- OUTSIDE RECORDS SUMMARY | 2024-11-12 04:44 | XMS_ITS | Encounter Summary ---
Author Organization [facility] Address [address] [place] [address] Care Team Providers Care Hr Director Name Role Phone Neva Holden MD Primary Care Provider [phone] Reason for Visit * Reason Comments Establish Care Diverticulitis Encounter Details Date Type Department Care Team ([facility] Contact Info) Description 08/29/2020 8:00 AM CDT Office Visit [facility] Physician Group - GI [address] [facility], [place] [phone] Benito Gutierrez MD [address] [place] [address] Internal hemorrhoids (Primary Dx) Social History Tobacco Use Types [...] Sign Reading Time Taken Comments Blood Pressure 152/88 08/29/2020 7:57 AM CDT Pulse 89 08/29/2020 7:57 AM CDT Temperature 36.2 ??C (97.2 ??F) 08/29/2020 7:57 AM CD T Respiratory Rate - - Oxygen Saturation 97% 08/29/2020 7:57 AM CDT Inhaled Oxygen Concentration - - Weight 96.7 kg (213 lb 3.2 oz) 08/29/2020 7:57 A M CDT Height 160 cm (5' 3 ) 08/29/2020 7:57 AM CDT Body Mass Index 37.77 08/29/2020 7:57 AM CDT documented in this encounter Patient Instructions * Patient Instructions* Benito Gutierrez MD - 08/29/2020 8:58 AM CDT Thank you for entrusting your healthcare to the physicians and other specialists at the [facility] Gastroenterology and Hepatology clinic today. Following your visit, you may receive a Press Phase Focus survey via email or U.S. Mail. We encourage youto respond to this confidential survey about your care. Your feedback helps us to provide quality service at every visit. Thank you for your help in making our practice meet higher expectations. Contact information: To reach the clinic please call (8 am to noon, 1 to 4:30 pm weekdays). Press 1 to make schedule or cancel an appointment Press 2 for pharmacy refills Press 3 to speak with my nurse Brandee Mcneil RN regarding a change in your condition. Many times your nurse may be busy seeing patients in clinic. In order to meet your needs timely we have implemented a nurse triage line to take your calls. We are closed from 12-1 for lunch After hours please call (hospital main number), ask the emulsification operator to call the gastroenterology fellow contract associate manager. Emergency; call 911 or go to your closest emergency room. The following information and instructions are from your visit today. IMPORTANT 1. Please continue to take Metamucil at least 20 to 30 g per day and drink plenty of water (1.5 to 2 liters per day). 2. Please started to take Anusol-HC 2.5% twice daily. 3. Can use stool softener if you start getting constipated. 4. Please continue to use Sitz Baths. 5. Avoid taking NSAIDs such as meloxicam. 6. Will plan to get your records including EGD, colonoscopy and gastric emptying study. 7. We will plan to see you back in clinic in approx 3 months, but please feel free to contact us inthe interim with any questions/concerns. 8. Please ask your primary care to refer you to cardiology for further evaluation of your abnormal stress test. 9. Need to have screening for HCV. Sincerely, Bneito Gutierrez MD documented in this encounter Progress Notes * Amber Nevarez MD - 08/29/2020 8:34 AM CDT GI and Hepatology Clinic Attending Addendum I have personally seen and examined this patient with Dr Gutierrez and I confirm their assessment and plan. My findings are outlined below. HPI/Subjective: Rody Zaidi is a 59 year old female with hx of DM, HTN, PVD, cardiomyopathy, who presents today to the clinic for evaluation of hemorrhoids. Having issues with hemorrhoids with blood in stools and pain. Sitzs bath and prep H with some improvement. Started Metamucil yesterday. Heartburn partially controlled on PPI BID EGD colonoscopy last year Additional details are as provided by Dr. Gutierrez PE: BP 152/88 Pulse 89 Temp 97.2 ??F (36.2 ??C) (Temporal) Ht 1.6 m (5' 3 ) Wt 96.7 kg (213 lb 3.2 oz) SpO2 97% BMI 37.77 kg/m2 Patient is alert and awake. Abdomen soft non tender Labs and imaging per GI [place] note. I agree with the assessment and plan as outlined by the GI Fellow. Current Outpatient Medications: ??? albuterol (PROVENTIL;VENTOLIN) (2.5 [...] 2 times daily, Disp: , Rfl: ??? cromolyn (CROLOM) 4 [...] MG tablet, , Disp: , Rfl: ??? ibuprofen (MOTRIN) 600 MG tablet, ibuprofen 600 mg tablet TAKE 1 TABLET BY MOUTH THREE TIMES DAILY, Disp: , Rfl: ??? isosorbide mononitrate CR 24hr (IMDUR) 30 [...] 1 T PO QD, Disp: , Rfl: ? ? varenicline (CHANTIX STARTING MONTH ) 0.5 MG X 11 & 1 MG X 42 tablets, FPD UTD, Disp: , Rfl: ??? vitamin D, ergocalciferol, (DRISDOL) 36426 UNITS capsule, , Disp: , Rfl: Assessment/Plan: Hemorrhoids, intermittent BRBPR, continue with fiber supplementation, sitzs bath and trial of anusol suppo q HS for 14 days, if no improvement consider CRS referral Chronic NSAIDs use Chronic narcotic use CRC screening 2018 ? Tubular adenomas Chronic heartburn on PPI BID however taking incorrectly, advised to take before meals ? Hx of gastroparesis obtain records HCV screening with PCP Amber Nevarez MD [employer] Architect of Internal Medicine Division of Gastroenterology and Hepatology * Benito Gutierrez MD - 08/29/2020 8:04 AM CDT Images from the original note were not included. 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 - Patient has been dealing with hemorrhoids for the past 4 months. Patient used to be followed by outside GI doctor which she could not see anymore as she lost her insurance. - She stated that her hemorrhoids has been hurting her. Sometimes she had to push the hemorrhoids back when she has a BM. - So far she tried preparation-H starting in June, and TUCKS. She already feels better and she feels that the hemorrhoids has been shrinking in size. When she wipes she continues to notice blood. - She started Metamucil yesterday. She is not sure how much she is taking. - Patient stated that for the last 3 months she has been having BM daily. She had constipation on and off before for which she used to take Dulcolax. Her GERD symptoms are under well control. She continues to take Omeprazole. REVIEW OF SYSTEMS: General: No weight loss, No fevers, chills, or sweats. Normal appetite. Skin: No rashes, new lesions, no jaundice Eyes: No yellowing of eyes or visual changes. Oral: No oral or dental problems CVS: + CP at rest. Respiratory: No cough, no sputum, no hemoptysis, no SOB, no LAKE GI: See HPI, denies acid reflux, dysphagia, odynophagia, dyspepsia, nausea, vomiting, bloating, abdominal pain. Genitourinary: No dysuria, hematuria Musculoskeletal: No swelling or pain. Neuro: No headaches, weakness, numbness, or syncope. Psych: No depression, anxiety All other systems negative unless otherwise stated. MED HISTORY: Patient Active Problem List Diagnosis Date Noted ??? MDD (recurrent major depressive disorder) in [...] Cervicalgia 04/28/2015 ??? Other chronic pain 04/28/2015 No past medical history on file. Past Surgical History: Procedure Laterality Date ??? Cholecystectomy 2007 ??? HX C SECTION CLASSIC 1989 ??? HX CAROTID ENDARDECTOMY 2014 ??? HX TUBAL LIGATION 1989 ??? OR FOOT/TOES SURGERY PROC UNLISTED ??? Tympanostomy 2013 Social History Tobacco Use ??? Smoking status: Current Every Day Smoker Packs/day: 0.50 Years: 40.00 Pack years: 20.00 Types: Cigarettes ??? Smokeless tobacco: Never Used Substance Use Topics ??? Alcohol use: No ??? Drug use: Yes Types: Marijuana Comment: occassional Family History Problem Relation Name Age of Onset ??? Depression Mother ??? Alcohol abuse Father ??? Depression Sister ??? Thyroid Disease Neg Hx Allergies Allergen Reactions ??? Penicillins Other and Urticaria unknown Reaction: Hives, ??? Risperidone Other Reported her face getting swollen ??? Haloperidol Other unknown ??? Ketorolac Tromethamine Unknown ??? Penicillin G Other Current Outpatient Medications on File Prior to Visit Medication Sig Dispense Refill ??? albuterol (PROVENTIL;VENTOLIN) [...] Reasons: MajorDepressive Disorder 30 capsule 2 ??? isosorbide mononitrate CR 24hr (IMDUR) 30 MG tablet ??? losartan (COZAAR) 100 MG tablet ??? metFORMIN (GLUCOPHAGE) 500 MG tablet ??? metoprolol succinate XL 24hr (TOPROL XL) 25 MG tablet ??? montelukast (SINGULAIR) 10 MG tablet ??? nitroGLYCERIN (NITROSTAT) 0.4 MG tablet ??? omeprazole EC (PRILOSEC OTC) 20 MG tablet ??? potassium chloride (KLOR-CON M) 20 MEQ tablet ??? vitamin D, ergocalciferol, (DRISDOL) 91997 UNITS capsule No current facility-administered medications on file prior to visit. PHYSICAL EXAM: BP 152/88 Pulse 89 Temp 97.2 ??F (36.2 ??C) (Temporal) Ht 1.6 m (5' 3 ) Wt 96.7 kg (213 lb 3.2 oz) SpO2 97% BMI 37.77 kg/m2 Body mass index is 37.77 kg/m??. Wt Readings from Last 3 Encounters: 08/29/20 96.7 kg (213 lb 3.2 oz) 08/21/20 96 kg (211 lb 12 oz) 08/08/20 94.8 kg (209 lb) Gen: Not distressed, appropriate HEENT: Anicteric sclera,OP clear, no lesions Neck: Supple, no masses, No lymphadenopathy Lungs: CTABL. No added sounds Heart:RRR,S1, S2, no murmurs Abdomen: Not distended, normal bowel sounds, non-tender Ext: No edema, symmetric Musculoskeletal: Ambulates, No joint redness, tenderness Skin: No rashes over exposed skin Neurologic: Alert, no encephalopathy, appropriate, cooperative Rectal: No external hemorrhoids, fissures, fistulas, normal anal tone, no palpable rectal masses, appropriate anal relaxation and pelvic descent with bearing down, strong sphincter contraction. Brownsoft stool. No blood, melena seen on finger. LABS: IMAGING: Stress test 01/2020 ASSESSMENT: # Hemorrhoids: Will plan to start patient on Anusol-HC 2.5% twice daily. Patient to continue to usePreparation-H. Continue to use Sitz baths, and Metamucil. If she continues to have issues with her hemorrhoids will refer patient to Colorectal surgery for further management. # GERD well controlled on Omeprazole. Asked patient to avoid NSAIDs. # H/O abnormal stress test. Patient is on Imdur. She is requesting referral to another music critic. She continues to have episodes of CP sometimes at rest. RECOMMENDATIONS: - Continue patient on Metamucil at least 20 to 30 g per day and drink plenty of water (1.5 to 2 liters per day). - Will start patient on Anusol-HC 2.5% twice daily. - Can use stool softener if you start getting constipated. - Continue to use Sitz Baths. - Avoid taking NSAIDs such as meloxicam. - Will plan to get your records including EGD, colonoscopy and gastric emptying study. - RTC in 3 months. - Primary care to refer you to cardiology for further evaluation of your abnormal stress test. - Primary care to check HCV ab for screening for HCV. Patient and above recommendations were discussed with GI attending, Dr. Nevarez. Benito Gutierrez MD PGY-5, Gastroenterology & Hepatology Fellow Division of Gastroenterology and Hepatology [facility] Pager: [phone] documented in this encounter Plan of Treatment Upcoming Encounters Date Type Department Care Team (Late st Contact Info) Description 01/19/2025 11:30 AM MULTICULTURAL INTERNSHIP Procedure visit [facility] - Urology [address] [place] [address] [address] [place] [address] Jose Oliver MD [address] [place] [phone] documented as of this encounter Goals Goal [...] as of this encounter Visit Diagnoses Diagnosis Internal hemorrhoids- Primary Internal hemorrhoids without mention of complication documented in this encounter Care Teams Hr Director Relationship Specialty Start Date End Date Neva Holden MD [address] [place] [phone] PCP - General 05/06/20 05/25/23 documented as of this encounter
--- OUTSIDE RECORDS SUMMARY | 2024-11-12 04:44 | XMS_ITS | Encounter Summary ---
Author Organization [facility] Address [address] [place] [address] Care Team Providers Care Assisted Living Executive Director Name Role Phone Neva Holden MD Primary Care Provider [phone] Encounter Details Date Type Department Care Team (Latest Contact Info) Description 10/22/2020 Travel Social History Tobacco Use Types Packs/Day [...] COVID-19? No / Unsure 10/22/2020 8:01 AM CAMPAIGN DEVELOPER documented as of this encounter Plan of Treatment Upcoming Encounters Date Type Department Care Team (Late st Contact Info) Description 01/19/2025 11:30 AM CAMPAIGN DEVELOPER Procedure visit [facility] - Urology [address] [place] [address] [address] [place] [phone] Jose Oliver MD [address] [place] [phone] documented as of this encounter Goals Goal [...] on filedocumented in this encounter Care Teams Assisted Living Executive Director Relationship Specialty Start Date End Date Neva Holden MD [address] [place] [phone] PCP - General 05/06/20 05/25/23 documented as of this encounter
--- OUTSIDE RECORDS SUMMARY | 2024-11-12 04:44 | XMS_ITS | Encounter Summary ---
Author Organization [facility] Address [address] [facility] [place] [address] Care Team Providers Care Pig Furnace Operator Name Role Phone Neva Holden MD Primary Care Provider [phone] Reason for Visit * Reason Onset Date Comments MEDICATION REFILL 09/05/2021 Encounter Details Date Type Department Care Team (Late Contact Info) Description 09/05/2021 Refill [facility] - GI [address] [place] [address], [place] [address] Sebastian Lombardi MD [address] [phone] MEDICATION REFILL Social History Tobacco Use Types [...] (Late Contact Info) Description 01/19/2025 11:30 AM CONTRACTS ADMINISTRATOR Procedure visit [facility] - Urology [address] [place] [address] [address] [place] [phone] Jose Oliver MD [address] [place] [address] [place] [phone] documented as of this encounter Goals Goal [...] as of this encounter Visit Diagnoses Diagnosis Hemorrhoids, unspecified hemorrhoid type- Primary documented in this encounter Care Teams Pig Furnace Operator Relationship Specialty Start Date End Date Neva Holden MD [address] [place] [phone] PCP - General 05/06/20 05/25/23 documented as of this encounter
--- OUTSIDE RECORDS SUMMARY | 2024-11-12 04:44 | XMS_ITS | Encounter Summary ---
Author Organization [facility] Address [address] [place] [address] Care Team Providers Care Medical Collections Name Role Phone Neva Holden MD Primary Care Provider [phone] Encounter Details Date Type Department Care Team (Latest Contact Info) Description 10/21/2020 Travel Social History Tobacco Use Types Packs/Day [...] st Contact Info) Description 01/19/2025 11:30 AM RECEPTIONIST TELEPHONE OPERATOR Procedure visit [facility] - Urology [address] [place] [address] [address] [place] [phone] Jose Oliver MD [address] [place] [phone] documented as of this encounter Goals Goal [...] filedocumented in this encounter Care Teams Medical Collections Relationship Specialty Start Date End Date Neva Holden MD [address] [place] [phone] PCP - General 05/06/20 05/25/23 documented as of this encounter
--- OUTSIDE RECORDS SUMMARY | 2024-11-12 04:44 | XMS_ITS | Encounter Summary ---
Author Organization [facility] Address [address] [facility] [place] [address] Care Team Providers Care Assurance Services Manager Health Care Name Role Phone Neva Holdne MD Primary Care Provider [phone] Reason for Referral * Procedure (Routine) - Closed Specialty Diagnoses / Procedures Referred By Contac t Referred To Contact Pulmonary Disease Diagnoses Acute exacerbation of chronic obstructive pulmonary disease (COPD) (HCC) Tobacco dependence CATHERINE (obstructive sleep apnea) Procedures COMPLETE PFT W/WO BRONCHODILATOR Damian Hager MD [address] [place] [address] [place] [address] [facility] [address] [place] [address] Referral ID Status Reason Start Date Expiration Date Visits Re quested Visits Authorized [id number] Closed 07/30/2021 07/30/2022 1 1 Encounter Details Date Type Department Care Team (Late st Contact Info) Description 07/30/2021 10:00 AM CDT Office Visit [facility] Pul[facility], Critical Care and Sleep Medicine [address] [facility] [place] [address] Damian Hager MD [address] [place] [address] [place] [address] Acute exacerbation of chronic obstructive pulmonary disease (COPD) (HCC) (Primary Dx); Tobacco dependence; CATHERINE (obstructive sleep apnea); Allergic rhinitis, unspecified seasonality, unspecified trigger; Gastroesophageal reflux disease without esophagitis Social History Tobacco Use Types Packs/Day Years Used Date Smoking Tobacco: Every Day Cigarettes 1 40 Smokeless Tobacco: Never Tobacco Cessation:Ready to Q uit: Yes Comments:pt said she will quit in [...] Sign Reading Time Taken Comments Blood Pressure 108/70 07/30/2021 9:45 AM CDT Pulse 80 07/30/2021 9:45 AM CDT Temperature 36 ??C (96.8 ??F) 07/30/2021 9:45 AM CDT Respiratory Rate 20 07/30/2021 9:45 AM CDT Oxygen Saturation 95% 07/30/2021 9:45 AM CDT Inhaled Oxygen Concentration - - Weight 91.7 kg (202 lb 3.2 oz) 07/30/2021 9:45 A M CDT Height - - Body Mass Index 35.82 06/10/2021 10:44 AM CDT documented in this encounter Progress Notes * Damian Hager MD - 07/30/2021 10:00 AM CDT [facility] Department of Pulmonary, Critical Care, and Sleep Medicine Pulmonary Clinic Note Damian Hager MD CHIEF COMPLAINT: COPD Referring Physician: Neva Holden MD Reason for Referral: COPD HISTORY OF PRESENT ILLNESS: Rody Zaidi is a 60 year old female that was referred to clinic for COPD. Diagnosed with COPD 15 years. Never had a lung function test. Has been on proair and symbicort. Wasalso on Flovent for some time. Was doing well for a couple of years but started having more flairs last 3-4 months. Before COVID had frequent flair ups. Has 1 pack of cigs left and wants to quit smoking. CATHERINE- does not wear hear CPAP. The patient's current respiratory symptoms include the following: - Dyspnea with exertion and sometimes with rest. Gets winded with couple hundred feet. Walking alsolimited by osteoarthritis of the knees. - cough chronic, nonproductive - occasionally clear sputum - 1 month ago went to ER for flair. Ancillary symptoms: Nose is dry when she wakes up. Chronic sinus drainage GERD well controlled Current respiratory therapies/medications: - Symbicort 2 puffs BID - Proair - using daily - famotidine - cetirizine HISTORIES: PAST MEDICAL/SURGICAL HISTORY: - CATHERINE - HTN - HLD - DM - CAD - anxiety - h/o COPD - Foot/toe surgery - cholecystectomy 2006 - carotid endarterectomy - tubal lication FAMILY HISTORY: - Family history of depression SOCIAL HISTORY: Tobacco use: Current smoker, 1/2 ppd for past 40 years. Marijuana use. CURRENT MEDICATION: Outpatient Encounter Medications as of 07/30/2021 Medication Sig Dispense Refill ??? albuterol (PROVENTIL;VENTOLIN) (2.5 MG/3ML) 0.083% nebulizer solution ??? albuterol HFA (VENTOLIN HFA) 108 (90 BASE) MCG/ACT inhaler ??? ALPRAZolam (XANAX) 1 MG tablet Take 1 (one) tablet by mouth 3 times daily Reasons: Feeling Anxious, Panic Disorder 90 tablet [...] TK 1 T PO TID PRN ??? dicyclomine (BENTYL) 20 MG tablet Take 20 mg by mouth 4 times daily as needed ??? EPINEPHrine (EPIPEN) 0.3 MG/0.3ML auto-injector pen epinephrine 0.3 mg/0.3 mL injection, auto-injector ??? ezetimibe (ZETIA) 10 MG tablet Take 10 mg by mouth once daily ??? famotidine (PEPCID) 40 MG tablet ??? FLUoxetine (PROZAC) 20 MG tablet Take 3 (three) tablets by mouth once daily Reasons: Major Depressive Disorder, Panic Disorder 90 tablet 2 ??? FLUoxetine (PROZAC) 60 MG tablet Take 1 (one) tablet by mouth once daily for 90 days 30 tablet 2 ??? fluticasone propionate (FLONASE) 50 MCG/ACT nasal spray fluticasone propionate 50 mcg/actuationnasal spray,suspension ??? HYDROcodone-acetaminophen (NORCO) 10-325 MG tablet ??? hydrocortisone (HYTONE) 2.5 % cream hydrocortisone 2.5 % topical cream with perineal applicator ??? ibuprofen (MOTRIN) 600 MG tablet ibuprofen [...] for 90 days Reasons: Major Depressive Disorder, Insomia 30 tablet 2 ??? nitroGLYCERIN (NITROSTAT) 0.4 MG tablet ??? omeprazole EC (PRILOSEC OTC) 20 MG tablet (Patient not taking: Reported on 06/25/2021) ??? ondansetron, disintegrating, (ZOFRAN ODT) 4 MG tablet DISSOLVE 1 TABLET IN MOUTH EVERY 6 TO 8 HOURS NEEDED FOR NAUSEA ??? potassium chloride (KLOR-CON M) 20 MEQ tablet ??? REPATHA SURECLICK 140 MG/ML auto-injector INJECT 1 PEN UNDER THE SKIN EVERY 14 DAYS 2 mL 2 ??? vitamin D, ergocalciferol, (DRISDOL) 19504 UNITS capsule No facility-administered encounter medications on file as of 07/30/2021. ALLERGIES: Allergies Allergen Reactions ??? Penicillins Other and Urticaria unknown Reaction: Hives, ??? Risperidone Other Reported her face getting swollen ??? Haloperidol Other unknown ??? Codeine Itching ??? Penicillin G Other PHYSICAL EXAM: BP 108/70 Pulse 80 Temp 96.8 ??F (36 ??C) Resp 20 Wt 202 lb 3.2 oz (91.7 kg) SpO2 95% BMI 35.82 kg/m2 General: Alert, raspy voice with increased work of breathing HEENT: NC/AT. EOMI. Cardiovascular: RRR, no murmurs. Respiratory: Decreased air movement, increased work of breathing, no crackles. Extremities: No cyanosis. Neurologic: Alert, oriented. No focal neurologic deficits. DATA REVIEWED: Lab data: Reviewed Pulmonary function tests: None available Radiology: None available ECHO: None available ASSESSMENT: 1. COPD group D, in acute exacerbation 2. Tobacco dependence 3. CATHERINE, non compliant with CPAP 4. Allergic rhinitis 5. GERD, well controlled 6. Generalized anxiety 7. CAD PLAN/DIAGNOSTIC: 1. Complete PFT with bronchodilator 2. ABG 3. Oxygen desaturation study 4. 6MWT 5. CBC with differential 6. Bring records from OSH and CD from CT scan 7. Consider obtaining ECHO if none available in records that patient brings PLAN/THERAPEUTIC: 1. Discussed importance of smoking cessation - patient is highly motivated - she will has set quit date of next week - prescribed tapering nicotine patch pack 2. AE-COPD treatment - Prednisone 40mg daily x 7 days - Levofloxacin 500mg daily x 7 days (PNC allergy) 3. Inhale regimen - increase Symbicort to 160/4.5 2 puffs BID - albuterol 2 puffs q4h as needed - will hold off on escalating therapy further today until we can confirm diagnosis with PFT 4. Continue cetrizine and famotidine 5. RTC in 6-8 weeks with results Total time spent on this visit: 45 minutes Damian Hager MD Division of Pulmonary, Critical Care, and Sleep Medicine [facility] documented in this encounter Plan of Treatment Upcoming Encounters Date Type Department Care Team (Late st Contact Info) Description 01/19/2025 11:30 AM RESEARCH AND DEVELOPMENT RESEARCHER Procedure visit [facility] - Urology [address] [place] [address] [address] [place] [address] Jose Oliver MD [address] [facility] [place] [address] documented as of this encounter Goals Goal [...] documented as of this encounter Results * SIX MINUTE WALK (10/06/2021 1:05 PM RESEARCH AND DEVELOPMENT RESEARCHER) Impressions Rose Marie Oro MD - 10/06/2021 1:05 PM RESEARCH AND DEVELOPMENT RESEARCHER [facility] DEPARTMENT OF PULMONARY, CRITICAL CARE, AND SLEEP [...] Marie Oro MD - 10/06/2021 1:05 PM RESEARCH AND DEVELOPMENT RESEARCHER Mary Benson MD ? 10/11/2021 ??4:46 PM Damian Hager MD RESPIRATORY THERAPY ORDERABLES * PFT OXYGEN DESATURATION STUDY (10/06/2021 1:05 PM RESEARCH AND DEVELOPMENT RESEARCHER) Impressions Rose Marie Oro MD - 10/06/2021 1:05 PM RESEARCH AND DEVELOPMENT RESEARCHER [facility] DEPARTMENT OF PULMONARY, CRITICAL CARE, AND SLEEP [...] Marie Oro MD - 10/06/2021 1:05 PM RESEARCH AND DEVELOPMENT RESEARCHER Mary Benson MD ? 10/11/2021 ??4:46 PM Damian Hager MD PFT ORDERABLES * COMPLETE PFT W/WO BRONCHODILATOR (10/06/2021 1:05 PM RESEARCH AND DEVELOPMENT RESEARCHER) Impressions Rose Marie Oro MD - 10/06/2021 1:05 PM RESEARCH AND DEVELOPMENT RESEARCHER [facility] DEPARTMENT OF PULMONARY, CRITICAL CARE, AND SLEEP [...] of Pulmonary, Critical Care, & Sleep Medicine [facility] I have personally reviewed and intepreted the results of the study and made any necessary edits to the final impression of the fellow. Rose Marie Oro MD Narrative Rose Marie Oro MD - 10/06/2021 1:05 PM RESEARCH AND DEVELOPMENT RESEARCHER Mary Benson MD ? 10/11/2021 ??4:46 PM Damian Hager MD RESPIRATORY THERAPY ORDERABLES documented in this encounter Visit Diagnoses Diagnosis Acute exacerbation of chronic obstructive pulmonary disease (COPD) (HCC)- Primary Obstructive chronic bronchitis with exacerbation Tobacco dependence Tobacco use disorder CATHERINE (obstructive sleep apnea) Obstructive sleep apnea (adult) (pediatric) Allergic rhinitis, unspecified seasonality, unspecified trigger Gastroesophageal reflux disease without esophagitis Esophageal reflux Chronic obstructive pulmonary disease with acute exacerbation (HCC)- Primary Obstructive chronic bronchitis with exacerbation Acute exacerbation of chronic obstructive pulmonary disease (COPD) (HCC) Obstructive chronic bronchitis with exacerbation Tobacco dependence Tobacco use disorder CATHERINE (obstructive sleep apnea) Obstructive sleep apnea (adult) (pediatric) Acute exacerbation of chronic obstructive pulmonary disease (COPD) (HCC) Obstructive chronic bronchitis with exacerbation Tobacco dependence Tobacco use disorder CATHERINE (obstructive sleep apnea) Obstructive sleep apnea (adult) (pediatric) documented in this encounter Care Teams Assurance Services Manager Health Care Relationship Specialty Start Date End Date Neva Holden MD [address] [place] [phone] PCP - General 05/06/20 05/25/23 documented as of this encounter
--- OUTSIDE RECORDS SUMMARY | 2024-11-12 04:44 | XMS_ITS | Encounter Summary ---
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) (Primary Dx) Social History Tobacco Use [...] Sign Reading Time Taken Comments Blood Pressure 119/78 06/10/2021 10:44 AM CDT Pulse 95 06/10/2021 10:44 AM CDT Temperature 36.6 ??C (97.8 ??F) 06/10/2021 10:44 AM C DT Respiratory Rate - - Oxygen Saturation 97% 06/10/2021 10:44 AM CDT Inhaled Oxygen Concentration - - Weight 89.8 kg (198 lb) 06/10/2021 10:44 AM CDT Height 160 cm (5' 3 ) 06/10/2021 10:44 AM CDT Body Mass Index 35.07 06/10/2021 10:44 AM CDT documented in this encounter Patient Instructions * Patient Instructions* Monica Quijano MD - 06/10/2021 12:19 PM CDT Please get you cholesterol checked before your next visit. You can get blood work done at [facility] on [address] without an appointment. Check in and let them know you are there for blood work at the front attendant, you will be directed to where you need to go from there. This is to make sure the atha is doing it's job. Please call my nurse, Jacquelin, with any questions or concerns. She can be reached at: [phone] documented in this encounter Progress Notes * Monica Quijano MD - 06/10/2021 10:51 AM CDT Cardiology Clinic Note Assessment & Plan Rody is a 60 year old female who has completed a telephone encounter regardin60 year old female with known extensive PAD (carotid and iliacs) with: 1) CAD, chest pain - continues to be asymptomatic - continue/up titrate antianginals: Imdur 60 mg daily Metoprolol 50 mg daily (patient changed to 50 mg daily on her own.) SL NG PRN - warning symptoms and when to seek emergency medical care discussed 2) dyslipidemia - cramps with 10 of rosuvastatin - could not pravastatin - continue zetia - started Zetia a few days ago, tolerated well - repeat lipid panel 8 weeks after starting 3) HTN - at goal per report - continue losartan 100 mg - continue [...] wants to quit before grandkid born RTC 3 months, sooner PRN. Monica Quijano, DO [facility] Subjective Chest pain good- went down to metop 50 mg. No concerns. Continuing to lose weight- intentional. Below 200 lbs now! Working on quitting smoking- wants to quit before grandson is born. Boy due in September. As active as she wants to be without limitations. A comprehensive 10 system ROS was reviewed. [...] 1 (one) tablet by mouth 3 times daily, Disp: 90 tablet, Rfl: 0 ??? aspirin EC (ECOTRIN) 325 MG tablet, [...] PO TID PRN, Disp: , Rfl: ??? dicyclomine (BENTYL) 20 MG tablet, Take 20 mg by mouth 4 times daily as needed, Disp: , Rfl: ??? EPINEPHrine (EPIPEN) 0.3 MG/0.3ML auto-injector pen, epinephrine 0.3 mg/0.3 mL injection, auto-injector, Disp: , Rfl: ??? evolocumab (REPATHA SURECLICK) 140 MG/ML auto-injector, Inject 1 (one) Pen subcutaneously every14 days, Disp: 2 Pen, Rfl: 3 ??? ezetimibe (ZETIA) 10 MG tablet, Take 10 mg by mouth once daily, Disp: , Rfl: ??? famotidine (PEPCID) 40 MG tablet, , Disp: , Rfl: ??? fluticasone propionate (FLONASE) 50 MCG/ACT nasal spray, fluticasone propionate 50 mcg/actuation nasal spray,suspension, Disp: , Rfl: ??? HYDROcodone-acetaminophen (NORCO) 10-325 MG tablet, , Disp: , Rfl: ??? hydrocortisone (HYTONE) 2.5 % cream, hydrocortisone 2.5 % topical cream with perineal applicator, Disp: , Rfl: ??? ibuprofen (MOTRIN) 600 [...] once daily,Disp: 90 tablet, Rfl: 3 ??? nitroGLYCERIN (NITROSTAT) 0.4 MG tablet, , Disp: , Rfl: ??? omeprazole EC (PRILOSEC OTC) 20 MG tablet, , Disp: , Rfl: ??? ondansetron, disintegrating, (ZOFRAN ODT) 4 MG tablet, DISSOLVE 1 TABLET IN MOUTH EVERY 6 TO 8 HOURS NEEDED FOR NAUSEA, Disp: , Rfl: ??? potassium chloride (KLOR-CON M) 20 MEQ tablet, , Disp: , Rfl: ? ? varenicline (CHANTIX STARTING MONTH LISS) 0.5 MG X 11 & 1 MG X 42 tablets, FPD UTD, Disp: , Rfl: ??? vitamin D, ergocalciferol, (DRISDOL) 17860 UNITS capsule, , Disp: , Rfl: Physical Exam: Vitals: 06/10/21 1044 BP: 119/78 Pulse: 95 Temp: 97.8 ??F (36.6 ??C) SpO2: 97% Weight: 198 lb (89.8 kg) Height: 5' 3 (1.6 m) General [...] REVIEWED: LABS: CBC: Recent Labs Component Name 10/21/20 0812 09/04/20 0729 WBC 9.7 11.4* HGB 14.0 13.3 HCT 42.0 40.6 MCV 86.6 86.6 BMP: Recent Labs Component Name 10/21/20 0812 09/04/20 0729 NA - 138 CL - 104 CO2 26 24 BUN 24 21 CREATININE 0.81 0.7 CALCIUM 9.1 8.6 Recent Labs Component Name 03/20/21 1203 02/20/21 0931 CHOL - 230* TRIG - 541* HDL - 31* LDLDIRECT 125* - EC10/01/2020 NSR, no acute ST-T wave abnormalities [...] Normal left lower extremity arterial physiologic study. documented in this encounter Plan of Treatment Upcoming Encounters Date Type Department Care Team (Late st Contact Info) Description 01/19/2025 11:30 AM WOOD GETTER Procedure visit [facility] - Urology [address] [place] [address] [address] [place] [address] Jose Oliver MD [facility] [place] [address] documented as of this encounter Goals Goal [...] as of this encounter Results * (ABNORMAL) LIPID PROFILE (12/02/2021 10:26 AM [facility]) Cholesterol Total 209(H) <200 mg/dL 12/02/2021 11:59 AM [facility] HDL 38(L) >40 mg/dL 12/02/2021 11:59 AM [facility] Comment: ATP III Classification of HDL Cholesterol: ? <40 mg/dL: ??Considered a major risk factor. ? >60 mg/dL: ??Considered a negative risk factor. ? LDL Calculated 12/02/2021 11:59 AM [facility] Comment:Calculation of LDL v alue was not performed because triglyceride concentrations greater than 400 mg/dL render the calculated value invalid. For this reason, the LDL Direct assay for measurement of LDL Cholesterol has been performed (per laboratory protocol). Triglycerides 544(H) <150 mg/dL 12/02/2021 11:59 AM [facility] Comment: ATP III Classification of Triglycerides: ?<150 mg/dL: ??Normal ? 150 - 199 mg/dL: ??Borderline High ? 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
--- OUTSIDE RECORDS SUMMARY | 2024-11-12 04:44 | XMS_ITS | Encounter Summary ---
Author Organization [facility] Address [address] [place] [address] Care Team Providers Care Process Automation Engineer Name Role Phone Dane Sullivan Primary Care Provider Reason for Visit * Reason Onset Date Comments Eye Problem 02/06/2020 Encounter Details Date Type Department Care Team (Late st Contact Info) Description 02/06/2020 Telephone [facility] Ophthalmology [address] [place] [phone] Lita Shah MD [address] [place] [phone] Eye Problem Social History Tobacco Use Types Packs/Day Years [...] Telephone Encounter - Lita Shah MD - 02/07/2020 9:25 AM CDT Called patient. She has a history of diabetes and AMD and is having new distortion/floaters. Discussed she should have visit in retina clinic. She is able to come Wednesday at 10:[address] Zuniga. Lita Shah MD PGY-3 Ophthalmology * Telephone Encounter - Ngozi Arreaag - 02/06/2020 11:23 AM CDT Pt is scheduled for op comp clinic on Wednesday and was told to keep her appt (not sure who she spoke to, she didn't know the name). Is that ok? She is the only one left on the clinic. documented in this encounter Plan of Treatment Upcoming Encounters Date Type Department Care Team (Late st Contact Info) Description 01/19/2025 11:30 AM COSTUME RENTAL CLERK Procedure visit [facility] - Urology [address] [place] [address] [address] [place] [phone] Jose Oliver MD [address] [place] [address] documented as of this encounter Visit Diagnoses Not on filedocumented in this encounter Care Teams Process Automation Engineer Relationship Specialty Start Date End Date Dane Sullivan DO PCP - General 06/24/17 05/05/20 documented as of this encounter
--- OUTSIDE RECORDS SUMMARY | 2024-11-12 04:44 | XMS_ITS | Encounter Summary ---
Author Organization [facility] Address [address] [facility] [place] [address] Care Team Providers Care Automotive Engineer Name Role Phone Neva Holden MD Primary Care Provider [phone] Encounter Details Date Type Department Care Team (Late Contact Info) Description 11/03/2021 Orders Only [facility] Pulmonary, Critical Care and Sleep Medicine [address] [place] [phone] [place] [address] [place] [id number] Pulmonary emphysema, unspecified emphysema type (HCC) Social History Tobacco Use Types Packs/Day [...] COVID-19? No / Unsure 10/06/2021 12:48 PM LARD BLEACHER documented as of this encounter Plan of Treatment Upcoming Encounters Date Type Department Care Team (Late Contact Info) Description 01/19/2025 11:30 AM LARD BLEACHER Procedure visit [facility] [address] [place] [address] Jose Oliver MD [address] [facility] [address] [facility] [place] [address] documented as of this encounter Goals Goal [...] W BUBBLE STUDY Routine 12/31/2021 9:47 AM LARD BLEACHER Pulmonary emphysema, unspecified emphysema type (HCC) documented in this encounter Results * ECHO COMPLETE W BUBBLE STUDY (12/31/2021 9:47 AM LARD BLEACHER) Anatomical Region Laterality Modality Chest Echo 12/31/2021 9:07 AM LARD BLEACHER Narrative Procedure Note Campos Fraga MD - 01/08/2022 Hollis Mccall MD ECHOCARDIOGRAPHY RAD IANT documented in this encounter Visit Diagnoses Diagnosis Pulmonary emphysema, unspecified emphysema type (HCC) Pulmonary emphysema, unspecified emphysema type (HCC) documented in this encounter Care Teams Automotive Engineer Relationship Specialty Start Date End Date Neva Holden MD [address] [place] [phone] PCP - General 05/06/20 05/25/23 documented as of this encounter
--- OUTSIDE RECORDS SUMMARY | 2024-11-12 04:44 | XMS_ITS | Encounter Summary ---
Author Organization [facility] Address [address] [place] [address] Care Team Providers Care Sheet Catcher Name Role Phone Neva Holden MD Primary Care Provider [phone] Reason for Visit * Reason Onset Date Comments Order 02/18/2021 Encounter Details Date Type Department Care Team (Late Contact Info) Description 02/18/2021 Telephone [facility] [address] [facility] [address] [place] [address] Monica Quijano MD Order Social History Tobacco Use Types Packs/Day Years [...] Telephone Encounter - Jacquelin Malloy RN - 02/18/2021 12:06 PM CDT Patient called office requesting that lab order be sent to [facility] as this is closer to her home. She plans to have lab drawn prior to upcoming appointment. Order changed and patient notified. documented in this encounter Plan of Treatment Upcoming Encounters Date Type Department Care Team (Late Contact Info) Description 01/19/2025 11:30 AM FUR REPAIRER Procedure visit [facility] - [facility] [address] [place] [address] Jose Oliver MD [address] [place] [address] documented as of this encounter Goals Goal [...] Date/Time Associated Diagnosis Comments LIPID PROFILE Routine 02/20/2021 9:31 AM CDT Coronary artery disease of sleetm[place] artery of [place] heart with stable angina pectoris (HCC) documented in this encounter Results * (ABNORMAL) LIPID PROFILE (02/20/2021 9:31 AM CDT) Cholesterol 230(H) <200 mg/dL [facility] HDL Cholesterol 31(L) > OR = 50 mg/dL [facility] Triglycerides 541(H) <150 mg/dL [facility] Comment: If a non-fasting specimen was collected, consider repeat triglyceride testing on a fasting specimen if clinically indicated. Reina et al. J. of Clin. Lipidol. 2015;9:129-169. There is increased risk of pancreatitis when the triglyceride concentration is very high (> or = 500 mg/dL, especially if > or = 1000 mg/dL). Reina et al. J. of Clin. Lipidol. 2015;9:129-169. LDL Calculated mg/dL (calc) [facility] Comment: LDL cholesterol not calculated. Triglyceride levels greater than 400 mg/dL invalidate calculated LDL results. Reference range: <100 Desirable range <100 mg/dL for primary prevention; ?? <70 mg/dL for patients with CHD or diabetic patients with > or = 2 CHD risk factors. LDL-C is now calculated using the James-Hernandez calculation, which is a validated novel method providing better accuracy than the Friedewald equation in the estimation of LDL-C. James SS et al. LB. 2013;310(19): 2471-2974 (http://education.VHT/faq/NJW786) CHOL/HDLC RATIO 7.4(H) <5.0 (calc) [facility] Non HDL Cholesterol 199(H) <130 mg/dL (calc) [facility] Comment: For patients with diabetes plus 1 major ASCVD risk factor, treating to a non-HDL-C goal of <100 mg/dL (LDL-C of <70 mg/dL) is considered a therapeutic option. REPORT COMMENT: FASTING:YES Test Performed at: [facility] [address] [place], [place] ??[phone] JESSICA MANLEY DO,MPH Blood BLOOD SPECIMEN / Unknown 02/20/2021 9:31 AM CDT 02/20/2021 9:32 AM CDT Monica Quijano MD LAB - CHEMISTRY ORD ERABLES [facility] [address] [place] [address] documented in this encounter Visit Diagnoses Diagnosis Coronary artery disease of [place] artery of [place] heart with stable angina pectoris (HCC)- Primary documented in this encounter Care Teams Sheet Catcher Relationship Specialty Start Date End Date Neva Holden MD [address] [place] [phone] PCP - General 05/06/20 05/25/23 documented as of this encounter
--- OUTSIDE RECORDS SUMMARY | 2024-11-12 04:44 | XMS_ITS | Encounter Summary ---
Author Organization [facility] Address [address] [place] [address] Care Team Providers Care Boxing Trainer Name Role Phone Neva Holden MD Primary Care Provider [phone] Reason for Visit * Reason Comments Refill Request Encounter Details Date Type Department Care Team (Late st Contact Info) Description 10/30/2021 Refill [facility] [address] [facility] [address] [place] [address] Monica Quijano MD Refill Request Social History [...] COVID-19? 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 Last seen 06/10/2021 Monica Quijano MD Has appt 12/08/21 Refilled per protocol RNATIVE EDUCATION TEACHER documented in this encounter Plan of Treatment Upcoming Encounters Date Type Department Care Team (Late st Contact Info) Description 01/19/2025 11:30 AM ALTERNATIVE EDUCATION TEACHER Procedure visit [facility] - Urology [address] [place] [address] [address] [place] [address] Jose Oliver MD [address] [place] [address] documented as of this encounter Goals Goal [...] on filedocumented in this encounter Care Teams Boxing Trainer Relationship Specialty Start Date End Date Neva Holden MD [address] [place] [phone] PCP - General 05/06/20 05/25/23 documented as of this encounter
--- OUTSIDE RECORDS SUMMARY | 2024-11-12 04:44 | XMS_ITS | Encounter Summary ---
Author Organization [facility] Address [address] [facility] [address] Care Team Providers Care Securities Vault Supervisor Name Role Phone Neva Holden MD Primary Care Provider [phone] Reason for Visit * Reason Onset Date Comments Medication Prior Auth Request 03/04/2021 Re patha Encounter Details Date Type Department Care Team (Late st Contact Info) Description 03/04/2021 Telephone [facility] [address] [facility] [address] [place] [address] Monica Quijano MD Medication Prior Auth Request (Repatha) Social History Tobacco Use Types Packs/Day Years [...] Telephone Encounter - Jacquelin Malloy RN - 04/08/2021 11:32 AM CDT Appeal approved! Patient notified. * Telephone Encounter - Jacquelin Malloy RN - 03/24/2021 1:42 PM CDT Appeal letter and records faxed to insurance. * Telephone Encounter - Jacquelin Malloy RN - 03/20/2021 10:17 AM CDT Contacted patient - informed of Latha Sanchez. Working on Appeal letter, last lipid panel did not have LDL level calculated due to elevated Triglycerides. Patient will go to [facility] today to have LDL draw for Appeal letter. * Telephone Encounter - Jacquelin Malloy RN - 03/04/2021 3:54 PM CDT Received message from patient - script sent to [facility]. Fax sent to [place] through [employer] to start PA. Patient aware and will wait for updated status. * Telephone Encounter - Jacquelin Malloy RN - 03/04/2021 11:56 AM CDT Patient called office reporting that new medication needed to be sent to a [facility]. Shewas planning to contact insurance for preferred pharmacy. Returned call to patient - left message to verify pharmacy. Received fax requesting script, however not pharmacy name on faxed document to respond to. documented in this encounter Plan of Treatment Upcoming Encounters Date Type Department Care Team (Late st Contact Info) Description 01/19/2025 11:30 AM DIRECTOR CASE Procedure visit [facility] Urology [address] [facility] [address] [place] [address] Jose Oliver MD [facility] [place] [address] documented as of this encounter Goals Goal [...] Procedure Name Priority Date/Time Associated Diagnosis Comments LDL CHOLESTEROL DIRECT Routine 03/20/2021 12:03 PM CDT PVD (peripheral vascular disease) (HCC) Coronary artery disease involving [place] heart without angina pectoris, unspecified vessel or lesion type Hyperlipidemia, unspecified hyperlipidemia type documented in this encounter Results * (ABNORMAL) LDL CHOLESTEROL DIRECT (03/20/2021 12:03 PM CDT) LDL Direct 125(H) <100 mg/dL [facility] Comment: Greatly elevated Triglycerides values (>1200 mg/dL) interfere with the dLDL assay. As no Triglycerides testing was ordered, interpret results with caution. Desirable range <100 mg/dL for primary prevention; ?? <70 mg/dL for patients with CHD or diabetic patients with > or = 2 CHD risk factors. REPORT COMMENT: FASTING:YES Test Performed at: [facility] [id number] [place] [address] ??[phone] JESSICA MANLEY DO,MPH Blood BLOOD SPECIMEN / Unknown 03/20/2021 12:03 PM CDT 03/20/2021 12:04 PM CDT Monica Quijano MD LAB - CHEMISTRY ORD ERABLES [facility] [address] [place] [address] documented in this encounter Visit Diagnoses Diagnosis Hyperlipidemia, unspecified hyperlipidemia type- Primary PVD (peripheral vascular disease) (HCC) Peripheral vascular disease, unspecified Coronary artery disease involving [place] heart without angina pectoris, unspecified vessel or lesion type documented in this encounter Care Teams Securities Vault Supervisor Relationship Specialty Start Date End Date Neva Holden MD [address] [place] [phone] PCP - General 05/06/20 05/25/23 documented as of this encounter
--- OUTSIDE RECORDS SUMMARY | 2024-11-12 04:44 | XMS_ITS | Encounter Summary ---
Author Organization [facility] Address [address] [place] [address] Care Team Providers Care Reproduction Artist Name Role Phone Neva Holden MD Primary Care Provider [phone] Encounter Details Date Type Department Care Team (Late st Contact Info) Description 03/03/2021 11:00 AM CDT Video Visit 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 This will be injectable. Get another check of your cholesterol 8 weeks after starting this medicine. Keep working on staying active and stopping smoking. Please call my nurse, Jacquelin, with any questions or concerns. She can be reached at: [phone] documented in this encounter Progress Notes * Monica Quijano MD - 03/03/2021 10:53 AM CDT Telephone Note Today's visit was conducted virtually due to COVID-19 countermeasures. The patient has given verbalconsent to have today's visit conducted by this same means with treatment provided remotely. The patient verbally consents to the billing and collection practices of the provider's medical group. Patient location: Home This encounter was performed using: audio Reason for not using video for visit: patient does not have the technology Total time spent on visit on date of encounter is: 14 minutes with 14 minutes spent in medical discussion Assessment & Plan Rody is a 60 year old female who has completed a telephone encounter regardin60 year old female with known extensive PAD (carotid and iliacs) with: 1) CAD, chest pain - much improved! - continue/up titrate antianginals: Imdur 60 mg daily Metoprolol 50 mg daily (patient changed to 50 mg daily on her own.) SL NG PRN - warning symptoms and when to seek emergency medical care discussed 2) dyslipidemia - cramps with 10 of rosuvastatin - could not pravastatin - continue zetia - start PCSK9 - repeat lipid panel 8 weeks after [...] born RTC 3 months, sooner PRN. Monica Quijano DO [facility] Subjective Patient reports having a cold, taking OTC without decongestant. 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 Chest pain good- went down to metop 50 mg. No concerns. Continuing to lose weight- intentional. Below 200 lbs now! Working on quitting smoking- wants to quit before baby is born in August. A comprehensive 10 system ROS was reviewed. Pertinent positives and negatives are included in HPI or PMH. The remainder of the 10 system ROS was negative. Objective No physical exam was able to be performed by phone. Monica Quijano MD HISTORY: It was my pleasure to see Ms. Rody Zaidi in consultation at [facility] on 03/03/2021 for evaluation of her chest pain. She is a pleasant 60 year old female with a history of PVD (s/p BL iliac stenting, BL CEA), DMII, active tobacco use. Patient reports 6 months of chest pain- central, non radiating, 7/10, pressure/sharp associated with shortness of breath. Chest pain brought on by walking up stairs or emotional stress (daughter's bf) Relieved with rest and calming herself done. 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 She has been on BB, Imdur at low doses. Has SL NG but has notused. Had muscle pain with high dose rosuvastatin, [...] ALPRAZolam (XANAX) 1 MG tablet, Take 1 mg by mouth anxiety, Disp: , Rfl: ??? aspirin EC (ECOTRIN) 325 MG tablet, [...] MG tablet, , Disp: , Rfl: ??? FLUoxetine (PROZAC) 20 MG capsule, TAKE ONE CAPSULE BY MOUTH DAILY, Disp: 26 capsule, Rfl: 0 ??? FLUoxetine (PROZAC) 40 MG capsule, TAKE 1 CAPSULE BY MOUTH EVERY DAY FOR MAJOR DEPRESSIVE DISORDER, Disp: 30 capsule, Rfl: 2 ??? fluticasone [...] applicator, Disp: , Rfl: ??? hydrocortisone, rectal, (ANUSOL-HC) 2.5 % cream, Insert into the rectum 2 times daily (Patient not taking: Reported on 03/03/2021), Disp: 2 tube, Rfl: 3 ??? ibuprofen [...] daily, Disp: 90 tablet, Rfl: 3 ??? nitroGLYCERIN (NITROSTAT) 0.4 MG tablet, , Disp: , Rfl: ??? omeprazole EC (PRILOSEC OTC) 20 MG tablet, , Disp: , Rfl: ??? ondansetron, disintegrating, (ZOFRAN ODT) 4 MG tablet, DISSOLVE 1 TABLET IN MOUTH EVERY 6 TO 8 HOURS NEEDED FOR NAUSEA, Disp: , Rfl: ??? potassium chloride (KLOR-CON M) 20 MEQ tablet, , Disp: , Rfl: ??? pravastatin (PRAVACHOL) 40 MG tablet, Take 1 (one) tablet by mouth at bedtime (Patient not taking: Reported on 03/03/2021), Disp: 90 tablet, Rfl: 3 ??? traZODone (DESYREL) 50 MG tablet, trazodone 50 mg tablet TAKE 1 TABLET BY MOUTH ONCE DAILY AT BEDTIME, Disp: , Rfl: ? ? varenicline (CHANTIX STARTING MONTH ) 0.5 MG X 11 & 1 MG X 42 tablets, FPD UTD, Disp: , Rfl: ??? vitamin D, ergocalciferol, (DRISDOL) 10261 UNITS capsule, , Disp: , Rfl: DATA REVIEWED: LABS: CBC: Recent Labs Component Name 10/21/20 0812 09/04/20 0729 WBC 9.7 11.4* HGB 14.0 13.3 HCT 42.0 40.6 MCV 86.6 86.6 BMP: Recent Labs Component Name 10/21/20 0812 09/04/20 0729 NA - 138 CL - 104 CO2 26 24 BUN 24 21 CREATININE 0.81 0.7 CALCIUM 9.1 8.6 EC10/01/2020 NSR, no acute ST-T wave [...] st Contact Info) Description 01/19/2025 11:30 AM CARTRIDGE ASSEMBLER Procedure visit [facility] - Urology [address] [place] [address] [address] [place] [address] Jose Oliver MD [facility] [place] [phone] documented as of this encounter Goals Goal [...] Visit Diagnoses Diagnosis Coronary artery disease of [place] artery of [place] heart with stable angina pectoris (HCC)- Primary documented in this encounter Care Teams Reproduction Artist Relationship Specialty Start Date End Date Neva Holden MD [address] [place] [phone] PCP - General 05/06/20 05/25/23 documented as of this encounter
--- OUTSIDE RECORDS SUMMARY | 2024-11-12 04:44 | XMS_ITS | Encounter Summary ---
Author Organization [facility] Address [address] [facility] [place] [address] Care Team Providers Care Cancer Program Consultant Name Role Phone Neva Holden MD Primary Care Provider [phone] Reason for Visit * Reason Comments HEMORRHOIDS reports blood mixed in with stool and when wiping Voice Disturbance patient reports hoar seness in voice that started a couple months ago Encounter Details Date Type Department Care Team (Late st Contact Info) Description 09/01/2021 1:00 PM CDT Office Visit [facility] - [address], [facility] [place] [id number] Sebastian Lombardi MD [address] [facility] [address] [place] [phone] Hemorrhoids, unspecified hemorrhoid type (Primary Dx); Gastroesophageal reflux disease without esophagitis Social History [...] Sign Reading Time Taken Comments Blood Pressure 136/92 09/01/2021 1:10 PM CDT Pulse 97 09/01/2021 1:10 PM CDT Temperature 37.2 ??C (99 ??F) 09/01/2021 1:10 PM CDT Respiratory Rate - - Oxygen Saturation 97% 09/01/2021 1:10 PM CDT Inhaled Oxygen Concentration - - Weight 95.3 kg (210 lb) 09/01/2021 1:10 PM CDT Height 160 cm (5' 3 ) 09/01/2021 1:10 PM CDT Body Mass Index 37.2 09/01/2021 1:10 PM CDT documented in this encounter Patient Instructions * Patient Instructions* Sebastian Lombardi MD - 09/01/2021 2:03 PM CDT Images from the original note were not included. Thank you for entrusting your healthcare to the physicians and other specialists at the [facility] Gastroenterology and Hepatology clinic today. Following your visit, you may receive a survey via email or U.S. Mail. We encourage you to respond to this confidential survey about your care. Your feedback helps us to provide quality service at every visit. Thank you for your help in making our practice meet higher expectations. IMPORTANT 09/01/2021 You were seen in the clinic today for Hemorrhoids, reflux. VISIT INSTRUCTIONS: ?? Please start taking the medication Protonix 40 mg daily as prescribed 30 minutes before meal. ?? PRN hydrocortisone cream for hemorrhoids ?? Please continue taking Matemucil and miralax as prescribed. 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 Reflux means acid and food in the stomach back up into the esophagus. It usually causes heartburn and other symptoms. GERD can cause other health problems over time if it is not treated. Signs and symptoms: ?? Heartburn (burning pain in your chest) ?? Pain after meals that spreads to your neck, jaw, or shoulder ?? Pain that gets better when you change positions ?? Bitter or acid taste in your mouth ?? A dry cough ?? Trouble swallowing or pain with swallowing ?? Hoarseness or a sore throat ?? Burping or hiccups ?? Feeling full soon after you start eating Call your local emergency number (911 in the ) if: ?? You have severe chest pain and sudden trouble breathing. Seek care immediately if: ?? You have trouble breathing after you vomit. ?? You have trouble swallowing, or pain with swallowing. ?? Your bowel movements are black, bloody, or tarry-looking. ?? Your vomit looks like coffee grounds or has blood in it. Call your doctor or voltage regulator assembler if: ?? You feel full and cannot burp or vomit. ?? You vomit large amounts, or you vomit often. ?? You are losing weight without trying. ?? Your symptoms get worse or do not improve with treatment. ?? You have questions or concerns about your condition or care. Treatment for GERD: ?? Medicines are used to decrease stomach acid. Medicine may also be used to help your lower esophageal sphincter and stomach contract (tighten) more. ?? Surgery is done to wrap the upper part of the stomach around the esophageal sphincter. This willstrengthen the sphincter and prevent reflux. Manage GERD: ?? Do not have foods or drinks that may increase heartburn. These include chocolate, peppermint, fried or fatty foods, drinks that contain caffeine, or carbonated drinks (soda). Other foods include spicy foods, onions, tomatoes, and tomato-based foods. Do not have foods or drinks that can irritate your esophagus, such as citrus fruits, juices, and alcohol. ?? Do not eat large meals. When you eat a lot of food at one time, your stomach needs more acid to digest it. Eat 6 small meals each day instead of 3 large meals, and eat slowly. Do not eat meals 2 to 3 hours before bedtime. ?? Elevate the head of your bed. Place 6-inch blocks under the head of your bed frame. You may alsouse more than one pillow under your head and shoulders while you sleep. ?? Maintain a healthy weight. If you are overweight, weight loss may help relieve symptoms of GERD. ?? Do not smoke. Smoking weakens the lower esophageal sphincter and increases the risk of GERD. Askyour healthcare provider for information if you currently smoke and need help to quit. E-cigarettesor smokeless tobacco still contain nicotine. Talk to your healthcare provider before you use these products. ?? Do not wear clothing that is tight around your waist. Tight clothing can put pressure on your stomach and cause or worsen GERD symptoms. Follow up with your doctor or voltage regulator assembler as directed: Write down your questions so you remember to ask them during your visits. ?? Copyright [employer] 2020 Information is for End User's use only and may not be sold, redistributed or otherwise used for commercial purposes. All illustrations and images included in CareNotes?? are the copyrighted property of [employer] or [employer] The above information is an educational program assistant only. It is not intended as medical advice for individual conditions or treatments. Talk to your doctor, nurse or pharmacist before following any medical regimen to see if it is safe and effective for you. 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 Sometimes a hemorrhoid may prolapse. This means it extends out of your anus. Common symptoms include the following: ?? Pain or itching around your anus or inside your rectum ?? Swelling or bumps around your anus ?? Bright red blood in your bowel movement, on the toilet paper, or in the toilet bowl ?? Tissue bulging out of your anus (prolapsed hemorrhoids) ?? Incontinence (poor control over urine or bowel movements) Seek care immediately if: ?? You have severe pain in your rectum or around your anus. ?? You have severe pain in your abdomen and you are vomiting. ?? You have bleeding from your anus that soaks through your underwear. Contact your healthcare provider if: ?? You have frequent and painful bowel movements. ?? Your hemorrhoid looks or feels more swollen than usual. ?? You do not have a bowel movement for 2 days or more. ?? You see or feel tissue coming through your anus. ?? You have questions or concerns about your condition or care. Treatment for hemorrhoids may include medicines to decrease pain, swelling, and itching. The medicine may be a pill, pad, cream, or ointment. Medicine may also be given to soften your bowel movement.Surgery and other procedures may be needed to shrink or remove your hemorrhoids. Manage your symptoms: ?? Apply ice on your anus for 15 to 20 minutes every hour or as directed. Use an ice pack, or put crushed ice in a plastic bag. Cover it with a towel before you apply it to your anus. Ice helps prevent tissue damage and decreases swelling and pain. ?? Take a sitz bath. Fill a bathtub with 4 to 6 inches of warm water. You may also use a sitz bath trejo that fits inside a toilet bowl. Sit in the sitz bath for 15 minutes. Do this 3 times a day, and after each bowel movement. The warm water can help decrease pain and swelling. ?? Keep your anal area clean. Gently wash the area with warm water daily. Soap may irritate the area. After a bowel movement, wipe with moist towelettes or wet toilet paper. Dry toilet paper can irritate the area. Prevent hemorrhoids: ?? Do not strain to have a bowel movement. Do not sit on the toilet too long. These actions can increase pressure on the tissues in your rectum and anus. ?? Drink plenty of liquids. Liquids can help prevent constipation. Ask how much liquid to drink each day and which liquids are best for you. ?? Eat a variety of high-fiber foods. Examples include fruits, vegetables, and whole grains. Ask your healthcare provider how much fiber you need each day. You may need to take a fiber supplement. ?? Exercise as directed. Exercise, such as walking, may make it easier to have a bowel movement. Ask your healthcare provider to help you create an exercise plan. ?? Do not have anal sex. Anal sex can weaken the skin around your rectum and anus. ?? Avoid heavy lifting. This can cause straining and increase your risk for another hemorrhoid. Follow up with your healthcare provider as directed: Write down your questions so you remember to ask them during your visits. ?? Copyright [employer] 2020 Information is for End User's use only and may not be sold, redistributed or otherwise used for commercial purposes. All illustrations and images included in CareNotes?? are the copyrighted property of [employer]. or [employer] The above information is an educational program assistant only. It is not intended as medical advice for individual conditions or treatments. Talk to your doctor, nurse or pharmacist before following any medical regimen to see if it is safe and effective for you. documented in this encounter Progress Notes * Sebastian Lombardi MD - 09/01/2021 1:00 PM CDT Gastroenterology Clinic follow up Visit Rody Zaidi Age: [age] year old Date of : 1960 Reason for Visit: Hemorrhoids Referring Physician: Dr. Holden Last visit: 08/2020 Subjective: History of Present Illness: Rody Zaidi is a 60 year old female with a history of GIOVANNY, HTN, GERD, DM, COPD, CAD, PVD, tobaccouse who presents for evaluation of hemorrhoids. Hemorrhoids: Patient had pain and minimal bleeding from her hemorrhoids, she ran out of the hydrocortisone cream and was asking for a refill as it helped her symptoms. She doesn't have any symptoms currently. Patient said that she is taking the metamucil daily. GERD: Patient is on Famotidine, she is still having heartburn. Patient still smoking 1PPD of cigarette. She is trying to ct down. No dysphagia. Past Medical History: Patient Active Problem List: GIOVANNY (generalized anxiety [...] MDD (recurrent major depressive disorder) in remission PAD (peripheral artery disease) CAD in [place] artery Past Medical History: Diagnosis Date ??? Anxiety ??? Atherosclerosis of coronary artery ??? Chest pain pain 12/9 ??? Chronic obstructive pulmonary disease (COPD) ??? [...] AK FOOT/TOES SURGERY PROC UNLISTED ??? Tympanostomy 2014 Medications: (Not in a hospital admission) Current Outpatient Medications Medication ??? albuterol (PROVENTIL;VENTOLIN) (2.5 MG/3ML) 0.083% nebulizer solution ??? albuterol HFA (VENTOLIN HFA) 108 (90 BASE) MCG/ACT inhaler ??? ALPRAZolam (XANAX) 1 MG tablet ??? aspirin EC (ECOTRIN) 325 MG tablet ??? cetirizine (ZYRTEC) 10 MG tablet ??? clopidogrel (PLAVIX) 75 MG tablet ??? cromolyn (CROLOM) 4 % ophthalmic solution ??? cyclobenzaprine (FLEXERIL) 10 MG tablet ??? doxycycline monohydrate 100 MG capsule ??? EPINEPHrine (EPIPEN) 0.3 MG/0.3ML auto-injector pen ??? ezetimibe (ZETIA) 10 MG tablet ??? famotidine (PEPCID) 40 MG tablet ??? FLUoxetine (PROZAC) 60 MG tablet ??? fluticasone propionate (FLONASE) 50 MCG/ACT nasal spray ??? HYDROcodone-acetaminophen (NORCO) 10-325 MG tablet ??? hydrocortisone (HYTONE) 2.5 % cream ??? ibuprofen (MOTRIN) 600 MG tablet ??? isosorbide mononitrate CR 24hr (IMDUR) 60 MG tablet ??? losartan (COZAAR) 100 MG tablet ??? metFORMIN (GLUCOPHAGE) 500 MG tablet ??? metoprolol succinate XL 24hr (TOPROL XL) 50 MG tablet ??? mirtazapine (REMERON) 7.5 MG tablet ??? nitroGLYCERIN (NITROSTAT) 0.4 MG tablet ??? potassium chloride (KLOR-CON M) 20 MEQ tablet ??? REPATHA SURECLICK 140 MG/ML auto-injector ??? triamcinolone acetonide (KENALOG) 0.1 % cream ??? vitamin D, ergocalciferol, (DRISDOL) 23227 UNITS capsule No current facility-administered medications for this visit. Allergies: Allergies Allergen Reactions ??? Penicillins Other and Urticaria unknown Reaction: Hives, ??? Azithromycin Unknown ??? Risperidone Other Reported her face getting swollen ??? Statins [Hmg-Coa-R Inhibitors] Other Causes muscle tightness ??? Haloperidol Other unknown ??? Codeine Itching ??? Penicillin G Other ??? Triazolam Unknown Social History: Social History Tobacco Use ??? Smoking status: Current Every Day Smoker Packs/day: 1.00 Years: 40.00 Pack years: 40.00 Types: Cigarettes ??? Smokeless tobacco: Never Used ??? Tobacco comment: pt said she will quit in 09/2021 Substance Use Topics ??? Alcohol use: No Family History: family history includes Alcohol abuse in her father; Depression in her mother and sister. Review of Systems: General: no fever, chills, fatigue, weight loss or gain. HEENT: no acute changes in vision or hearing Respiratory: no shortness of breath, cough, sputum production, hemoptysis Cardiovascular: no chest pain, palpitations, orthopnea Gastrointestinal: as per HPI Genitourinary: no dysuria, hematuria, incontinence MSK: no extremity edema, myalgia. Neuro: no dizziness, headache, seizures Objective: Physical Exam: BP 136/92 Pulse 97 Temp 99 ??F (37.2 ??C) Ht 1.6 m (5' 3 ) Wt 95.3 kg (210 lb) SpO2 97% BMI 37.2 kg/m2 Wt Readings from Last 3 Encounters: 09/01/21 95.3 kg (210 lb) 07/30/21 91.7 kg (202 lb 3.2 oz) 06/25/21 91.6 kg (202 lb) General: pleasant, in no distress Lungs: clear to auscultation bilaterally, no wheezes Heart: Normal rate and regular rhythm, no appreciable murmurs Abdomen: soft, non-tender, non-distended Rectal: Deferred, done last visit Extremities: no edema Labs: Recent Labs Component Name 10/21/20 0812 09/04/20 0729 WBC 9.7 11.4* HGB 14.0 13.3 MCV 86.6 86.6 INR 1.0 - Recent Labs Component Name 10/21/20 0812 09/04/20 0729 NA - 138 CL - 104 CO2 26 24 BUN 24 21 CREATININE 0.81 0.7 No results for input(s): AST, ALT, ALKPHOS, TBILI, ALB in the last 29972 hours. Imaging: No results found. Procedures: Colonoscopy & EGD 2019: She had adenomatous colon polyps, recommended repeat in 5 years. EGD showed only mild gastritis, mild duodenitis. She was H pylori negative. Assessment: ?? Hemorrhoids: On Metamucil. with minimal bleeding and pain. ?? GERD: On famotidine ?? Colonic polyps: colonoscopy in 2019, repeat in 3-5 years. ?? Other co-morbidities: HTN, DM, PVD Recommendations: ?? Encouraged to continue high fiber diet (Metamucil), prescribed hydrocortisone cream PRN ?? D/c famotidine and switch to Protonix 40 mg daily ?? Lifestyle modifications to help with his acid reflux ?? Encourage to quit smoking as it will exacerbate her symptoms ?? Discuss repeat colonoscopy in the next visit. Patient and above recommendations were discussed with GI attending, Dr. Bates. CC: Neva Holden MD. Sebastian Lombardi MD PGY-4, Gastroenterology & Hepatology Fellow [facility] documented in this encounter H&P Notes * Amber Bates MD - 09/01/2021 1:58 PM CDT I have seen and examined the patient with the resident and I agree with the findings and plan of care as documented by the resident. DARIO 08/2020 Taking metamucil. anusol HC helped pretty immediately-wants Rx refill Rectal exam last visit Still some pain and blood on tissue with wiping at times but content with options GERD-on H2RA. Daily. Increase to ppi. GERD handout. Tobacco cessation Colon 2018 3 adenomatous polyps, hemorrhoids-repeat 3-5 years, can discuss next year Date of Service: 09-01-2021 Amber Bates MD Coding Rationale New or est? Established Patient Highest problem complexity: 1 stable chronic illness Data review: Review of result(s): 1 unique source(s) Highest level of risk: Moderate Suggested code: [id number] documented in this encounter Plan of Treatment Upcoming Encounters Date Type Department Care Team (Late st Contact Info) Description 01/19/2025 11:30 AM [employer] Procedure visit [facility] - Urology [address] [place] [address] [address] [place] [address] Jose Oliver MD [address] [place] [phone] documented as of this encounter Goals Goal [...] Diagnoses Diagnosis Hemorrhoids, unspecified hemorrhoid type- Primary Gastroesophageal reflux disease without esophagitis Esophageal reflux documented in this encounter Care Teams Cancer Program Consultant Relationship Specialty Start Date End Date Neva Holden MD [address] [place] [phone] PCP - General 05/06/20 05/25/23 documented as of this encounter
--- OUTSIDE RECORDS SUMMARY | 2024-11-12 04:44 | XMS_ITS | Encounter Summary ---
Author Organization [facility] Address [address] [facility] [place] [address] Care Team Providers Care Tool Tender Name Role Phone Neva Holden MD Primary Care Provider [phone] Reason for Referral * Radiology Services (Routine) - Closed Specialty Diagnoses / Procedures Referred By Nacho brooks Referred To Contact Vascular Lab Diagnoses Bilateral carotid artery stenosis Procedures VAS CAROTID DUPLEX BILATERAL Jose A Clark MD [facility] 2L [place] [address] [facility] Vascular [address] [place] [address] Referral ID Status Reason Start Date Expiration Date Visits Re quested Visits Authorized [id number] Closed 10/03/2020 10/03/2021 1 1 SSMENT MANAGER Reason for Visit * Reason Comments Post-Op Encounter Details Date Type Department Care Team (Late st Contact Info) Description 10/03/2020 8:30 AM ASSESSMENT MANAGER Office Visit [facility] Vascular Surgery [address] [facility], [place] [address] Jose A Clark MD [address] [facility] [address] [place] [phone] Bilateral carotid artery stenosis (Primary Dx) Social History Tobacco Use Types [...] Sign Reading Time Taken Comments Blood Pressure 106/73 10/03/2020 8:29 AM ASSESSMENT MANAGER Pulse 79 10/03/2020 8:29 AM ASSESSMENT MANAGER Temperature 36.2 ??C (97.2 ??F) 10/03/2020 8:29 AM CS T Respiratory Rate 20 10/03/2020 8:29 AM ASSESSMENT MANAGER Oxygen Saturation 97% 10/03/2020 8:29 AM ASSESSMENT MANAGER Inhaled Oxygen Concentration - - Weight 93.9 kg (207 lb) 10/03/2020 8:29 AM ASSESSMENT MANAGER Height 160 cm (5' 3 ) 10/03/2020 8:29 AM ASSESSMENT MANAGER Body Mass Index 36.67 10/03/2020 8:29 AM ASSESSMENT MANAGER documented in this encounter Patient Instructions * Patient Instructions* Mike Gamez - 10/03/2020 9:01 AM ASSESSMENT MANAGER Someone will call you to schedule your vascular labs. We will call you to let you know those results. As long as those are okay, we will see you back in 3 months with repeat vascular testing. Call the office with any questions or concerns [phone] We have written you a prescription for nicotine lozenges, though these may not be covered by your insurance since they are over the counter. SSMENT MANAGER documented in this encounter Progress Notes * Mike Gamez - 10/03/2020 8:43 AM CST Vascular Surgery Clinic Note 10/03/2020 History: Rody Zaidi is a 59 year old female who presents for a follow up after IR angiogram on 09/04 where two stents were placed in the L common iliac a. PMHx of HTN, PVD, hypercholesterolemia, T2DM, COPD, smoking hx since age 16, asthma and bl iliac stent placement in 2015. Breif vascular history: in 08/08, more claudication that is lifestyle limiting, with L leg worse than R. There was a drop in ABIsand IR angiogram was completed. Pt is no longer having much claudication in the L leg, and has a little more in the R leg but not lifestyle limiting yet. She said the pain went from a 99 to about a 30 . Pt denies any color, sensation, temperature changes in her feet. Pt reports walking daily and cutting her smoking to 5 cigarettes a day. She is very interested in quitting. Past Medical History: Diagnosis Date ??? Anxiety ??? Atherosclerosis of coronary artery ??? Chest pain ??? Chronic obstructive pulmonary disease (COPD) ??? Essential hypertension ??? History of diabetes mellitus ??? Obesity ??? Pure hypercholesterolemia ??? Sleep apnea ??? Snoring Past Surgical History: Procedure Laterality Date ??? Cholecystectomy 2006 ??? HX C SECTION CLASSIC 1989 ??? HX CAROTID ENDARDECTOMY 2014 ??? HX TUBAL LIGATION 1989 ??? [place] FOOT/TOES SURGERY PROC UNLISTED ??? Tympanostomy 2013 [...] Cigarettes ??? Smokeless tobacco: Never Used Substance and Sexual Activity ??? Alcohol use: No ??? Drug use: Yes Types: Marijuana Comment: occassional ??? Sexual activity: Not on file Lifestyle ??? Physical activity Days per week: Not on file Minutes per session: Not on file ??? Stress: Not on file Relationships ??? 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 Date last employed: 30 years ago Allergies Allergen Reactions ??? Penicillins Other and Urticaria unknown Reaction: Hives, ??? Risperidone Other Reported her face getting swollen ??? Haloperidol Other unknown ??? Codeine Itching ??? Penicillin G Other Current Outpatient Medications: [...] , Rfl: ??? vitamin D, ergocalciferol, (DRISDOL) 74633 UNITS capsule, , Disp: , Rfl: Review of Systems Constitutional: Negative for fatigue, weight loss, fevers, chills, anorexia. Eyes: Negative for changes in vision or ocular discharge Ears, nose, mouth, and throat: Negative for ear pain, nasal drainage, sore throat Respiratory: Negative for shortness of breath, acute cough, asthma, wheezing Cardiovascular: Negative for chest pain, cyanosis Gastrointestinal: Negative for nausea, vomiting, hemetemesis, hematochezia, abdominal pain, constipation, diarrhea Genitourinary: Negative for dysuria, hematuria Skin: Negative for rash Hematologic/lymphatic: Negative for easy bruising Musculoskeletal:Negative for joint pain, muscle pain Neurological: Negative for headaches, seizures Physical Exam: BP 106/73 (BP SITE: LEFT ARM) Pulse 79 Temp 97.2 ??F (36.2 ??C) (Oral) Resp 20 Ht 5' 3 (1.6 m) Wt 207 lb (93.9 kg) SpO2 97% BMI 36.67 kg/m2 Gen: NAD HEENT: EOMI CV: Extremities WWP Pulm: Non-labored breathing on ambient air Abdomen: Soft, non-distended. No tenderness to palpation. Extremities: No BLE edema. Skin: WWP. No wounds, color change, temperature differences, hair loss in the lower legs. Palpable DP and PT pulses in both feet, with L PT being stronger than R PT. Assessment/Plan: Rody Zaidi is a 59 year old female who is following up for two L common iliac stent placements on 09/04 via IR angiogram. Pt has done well since the procedure and has been able to go about her life with minimal claudication symptoms. At this time, no further intervention is indicated. Today we will have her go to vascular lab for iliac ultrasound and ABIs. As long as these are normal, we will follow up in clinic in 3 months. Before that appointment we will have her repeat the US and ABIs. We will schedule her for carotid US when her insurance authorization goes through. We wrote her a prescription for nicotine lozenges. Patient has been seen and discussed with attending physician Dr. Clark. Mike Gamez, 3 10/03/2020 8:43 AM SSMENT MANAGER Associated attestation - Jose A Clark MD - 10/04/2020 7:44 AM ASSESSMENT MANAGER I have verified the documentation of the medical student including all history, exam, and medical decision-making details. I have personally performed a physical exam and have personally reviewed thedata to support my medical decision-making as outlined in the medical student???s note, and I arrive independently at the same conclusion. In summary, the patient is a 59 year old woman who is s/p left iliac artery stenting for short distance claudication. Her symptoms have resolved and she feels wonderful. She has pulses in her feet. She did not got for her vascular labs, so we will arrange for these to be done (KENZIE and duplex of stents). She has history of carotid endarterectomy in the past elsewhere on the left and has not had recent carotid duplex, so we will obtain this as well. Assuming all looks OK, we will put her into surveillance and repeat leg vascular labs in 3 months. Jose A Clark MD 10/04/2020 7:42 AM documented in this encounter Plan of Treatment Upcoming Encounters Date Type Department Care Team (Late st Contact Info) Description 01/19/2025 11:30 AM ASSESSMENT MANAGER Procedure visit [facility] - Urology [address] [place] [address] [address] [place] [address] oJse Oliver MD [address] [place] [phone] documented as of this encounter Goals Goal [...] documented as of this encounter Results * VAS CAROTID DUPLEX BILATERAL (10/22/2020 9:27 AM ASSESSMENT MANAGER) Anatomical Region Laterality Modality Neck Intravascular Ul trasound 10/22/2020 9:04 AM ASSESSMENT MANAGER Narrative Procedure Note Eric Costa MD - 10/22/2020 Jose A Clark MD VASCULAR LAB ORDERAB LES documented in this encounter Visit Diagnoses Diagnosis Bilateral carotid artery stenosis- Primary Occlusion and stenosis of multiple and bilateral precerebral arteries without mention of cerebral infarction Bilateral carotid artery stenosis Occlusion and stenosis of multiple and bilateral precerebral arteries without mention of cerebral infarction documented in this encounter Care Teams Tool Tender Relationship Specialty Start Date End Date Neva Holden MD [address] [place] [phone] PCP - General 05/06/20 05/25/23 documented as of this encounter
--- OUTSIDE RECORDS SUMMARY | 2024-11-12 04:44 | XMS_ITS | Encounter Summary ---
Author Organization [facility] Address [address] [facility] [place] [address] Care Team Providers Care Jewel Hole Finish Opener Name Role Phone Neva Holden MD Primary Care Provider [phone] Encounter Details Date Type Department Care Team (Latest Contact Info) Description 10/06/2021 1:06 PM ACCESS NURSE - 10/06/2021 3:19 PM ACCESS NURSE Hospital Encounter [facility] PFT [address] [place] [phone] Damian Hager MD [address] [place] [phone] Discharge Disposition: Home or Self Care Social [...] COVID-19? No / Unsure 10/06/2021 12:48 PM ACCESS NURSE documented as of this encounter Medications at [...] evening meal 12/27/2016 vitamin D, ergocalciferol, (DRISDOL) 39691 UNITS capsule Take 1 (one) capsule by [...] st Contact Info) Description 01/19/2025 11:30 AM ACCESS NURSE Procedure visit [facility] - Urology [address] [place] [address] [address] [place] [phone] Jose Oliver MD [address] [place] [address] documented as of this encounter [...] on filedocumented in this encounter Care Teams Jewel Hole Finish Opener Relationship Specialty Start Date End Date Neva Holden MD [address] [place] [phone] PCP - General 05/06/20 05/25/23 documented as of this encounter
--- OUTSIDE RECORDS SUMMARY | 2024-11-12 04:44 | XMS_ITS | Encounter Summary ---
Author Organization [facility] Address [address] [facility] [place] [address] Care Team Providers Care Sheep Farmer Name Role Phone Neva Holden MD Primary Care Provider [phone] Reason for Visit * Reason Onset Date Comments Procedure Prior Auth Request 10/18/2020 Encounter Details Date Type Department Care Team (Late st Contact Info) Description 10/18/2020 Telephone [facility] [address] [facility] [address] [place] [address] Jacquelin Malloy RN Procedure Prior Auth Request Social History Tobacco Use Types Packs/Day [...] COVID-19? No / Unsure 10/22/2020 8:01 AM RAIL BENDER documented as of this encounter Miscellaneous Notes * Telephone Encounter - Jacquelin Malloy RN - 10/18/2020 10:29 AM CST Received denial notice for patient's heart cath. Cath scheduled on 10/24. Contacted reconsideration line and scheduled peer to peer at 1 pm today. They will contact office as first line to reach Dr. Quijano, and cell number as second line. BENDER documented in this encounter Plan of Treatment Upcoming Encounters Date Type Department Care Team (Late st Contact Info) Description 01/19/2025 11:30 AM RAIL BENDER Procedure visit [facility] - Urology [address] [facility] [address] [place] [address] Jose Oliver MD [address] [place] [address] documented as of this encounter Goals Goal [...] on filedocumented in this encounter Care Teams Sheep Farmer Relationship Specialty Start Date End Date Neva Holden MD [address] [place] [phone] PCP - General 05/06/20 05/25/23 documented as of this encounter
--- OUTSIDE RECORDS SUMMARY | 2024-11-12 04:44 | XMS_ITS | Encounter Summary ---
Author Organization [facility] Address [address] [facility] [place] [address] Care Team Providers Care Laboratory Aide Name Role Phone Neva Holden MD Primary Care Provider Reason for Visit * Reason Comments Hypertension Follow-up Encounter Details Date Type Department Care Team (Late st Contact Info) Description 12/03/2020 9:40 AM GUITAR TEACHER Video Visit [facility] Cardiology [address] [place] [facility] [address] [place] [address] Monica Quijano MD Coronary artery disease of [place] artery of [place] heart with stable angina pectoris (HCC) Social [...] Sign Reading Time Taken Comments Blood Pressure 107/73 12/03/2020 9:24 AM GUITAR TEACHER Pulse - - Temperature - - Respiratory Rate - - Oxygen Saturation - - Inhaled Oxygen Concentration - - Weight - - Height - - Body Mass Index - - documented in this encounter Patient Instructions * Patient Instructions* Monica Quijano MD - 12/03/2020 9:52 AM GUITAR TEACHER Please start taking pravastatin 40 mg nightly. After 6-8 weeks on this medicine, next time you go to [facility] please get your lipid panel checked. Keep working on quitting smoking! Keep up the good work with diet and exercise and reducing stress! AR TEACHER documented in this encounter Progress Notes * Monica Quijano MD - 12/03/2020 9:36 AM CST Telephone Note Today's visit was conducted virtually [...] discussion Assessment & Plan Rody is a 59 year old female who has completed a telephone encounter regardin59 year old female with known extensive PAD (carotid and iliacs) with: 1) chest pain - much improved! - continue/up titrate antianginals: Imdur 60 mg daily Metoprolol 100 mg daily SL NG PRN - further mgmt pending cath results - warning symptoms and when to seek emergency medical care discussed 2) dyslipidemia - cramps with only 10 of rosuvastatin - patient states could tolerate pravastatin 40 mg, recheck lipids in 6 weeks - continue zetia - if unable to tolerate high intensity statin, will consider PCSK9 3) HTN - at goal - med changes as above - continue [...] how important complete cessation is - cutting back RTC 3 months, sooner PRN. Monica Quijano, DO [facility] Subjective Chief Complaint Patient presents with ??? Hypertension Follow-up Feeling well, losing weight- 13 lbs intentionally. Very happy with it. Eating salads, no carbs. Walking, stretching for exercise. Mild chest pain occasionally- but much improved after increase in BB and not letting daughter's bf stress her out. Blood sugar much better controlled- 130-140's. Used marycruz in 200's. Still smoking but cutting back, didn't tolerate Chantix. A comprehensive 10 system ROS was reviewed. Pertinent positives and negatives are included in HPI or PMH. The remainder of the 10 system ROS was negative. Objective No physical exam was able to be performed by phone. Monica Quijano MD HISTORY: It was my pleasure to see . Rody Zaidi in consultation at [facility] on 12/03/2020 for evaluation of her chest pain. She [...] calming herself done. She reports that previous project development director (switching due to insurance issues) did a [...] Rfl: ??? FLUoxetine (PROZAC) 40 MG capsule, TAKE [...] 90 tablet, Rfl: 3 ??? nicotine polacrilex (NICOTINE MINI) 2 MG, Take 1 Each by mouth as needed Reasons: Nicotine Addiction (Patient not taking: Reported on 10/24/2020), Disp: 20 lozenge, Rfl: 2 ??? nitroGLYCERIN (NITROSTAT) 0.4 MG tablet, , Disp: , Rfl: ??? omeprazole EC (PRILOSEC OTC) 20 MG tablet, , Disp: , Rfl: ??? ondansetron, disintegrating, (ZOFRAN ODT) 4 MG tablet, DISSOLVE 1 TABLET IN MOUTH EVERY 6 TO 8 HOURS NEEDED FOR NAUSEA, Disp: , Rfl: ??? potassium chloride (KLOR-CON M) 20 MEQ tablet, , Disp: , Rfl: ??? rosuvastatin (CRESTOR) 10 MG tablet, Take 1 tablet by mouth once daily (Patient not taking: Reported on 10/24/2020), Disp: 90 tablet, Rfl: 3 ??? traZODone (DESYREL) 50 MG tablet, trazodone 50 mg tablet TAKE 1 TABLET BY MOUTH ONCE DAILY AT BEDTIME, Disp: , Rfl: ? ? varenicline (CHANTIX STARTING MONTH LISS) 0.5 MG X 11 & 1 MG X 42 tablets, FPD UTD, Disp: , Rfl: ??? vitamin D, ergocalciferol, (DRISDOL) 34033 UNITS capsule, , Disp: , Rfl: DATA REVIEWED: LABS: CBC: Recent Labs Component Name 10/21/20 0809/04/20 0729 WBC 9.7 11.4* HGB 14.0 13.3 HCT 42.0 40.6 MCV 86.6 86.6 BMP: Recent Labs Component Name 10/21/2081109/04/20 0729 NA - 138 CL - 104 [...] Normal left lower extremity arterial physiologic study. AR TEACHER * Snow Kulkarni - 12/03/2020 9:21 AM CST Legs are cramping from crestor. Pt would like to maybe try atorvastatin again. She stated shes walking pretty good since having the stent put into her leg Pt c/o headaches from time to time tio AR TEACHER documented in this encounter Plan of Treatment Upcoming Encounters Date Type Department Care Team (Late st Contact Info) Description 01/19/2025 11:30 AM GUITAR TEACHER Procedure visit [facility] - Urology [address] [place] [address] [address] [place] [address] Jose Oliver MD [address] [place] [phone] documented as of this encounter Goals Goal Patient Goal Type Associated Problems Recent Progress Patient-Stated? Author Medication Management General On track( 021 1:21 PM CDT) Tamiko oTrres, RN Note: Expected end date: ongoing Interventions: Take all medications as prescribed Let your doctor know right away about any changes in your medications Make sure to request a refill of your medication at least one week prior to your last dose documented as of this encounter Visit Diagnoses Diagnosis Coronary artery disease of [place] artery of [place] heart with stable angina pectoris (HCC)- Primary documented in this encounter Care Teams Laboratory Aide Relationship Specialty Start Date End Date Neva Holden MD [address] [place] [phone] PCP - General 05/06/20 05/25/23 documented as of this encounter
--- OUTSIDE RECORDS SUMMARY | 2024-11-12 04:44 | XMS_ITS | Encounter Summary ---
Author Organization [facility] Address [address] [place] [address] Care Team Providers Care Research Tech Name Role Phone Neva Holden MD Primary Care Provider [phone] Reason for Visit * Radiology Services (Routine) - Closed Specialty Diagnoses / Procedures Referred By Nacho brooks Referred To Contact Vascular Lab Diagnoses Peripheral vascular disease with claudication (HCC) Procedures VAS DILEEP ABD DOPPLER AO IVC ILIAC US AORTA IVC ILIAC DOPPL COMP Asa Mcnamara MD [address] [address] Referral ID Status Reason Start Date Expiration Date Visits Re quested Visits Authorized [id number] Closed 06/17/2020 06/17/2021 1 1 Encounter Details Date Type Department Care Team (Latest Contact Info) Description 07/10/2020 12:30 PM CDT Hospital Encounter [facility] VASCULAR US [address] [place] [address] Leo Tamayo MD [address] [place] [address] [place] [phone] Discharge Disposition: Home or Self Care [...] evening meal 12/27/2016 vitamin D, ergocalciferol, (DRISDOL) 37083 UNITS capsule Take 1 (one) capsule by [...] st Contact Info) Description 01/19/2025 11:30 AM BROKERAGE MANAGER Procedure visit [facility] - Urology [address] [place] [address] [address] [place] [address] Jose Oliver MD [address] [place] [address] documented as of this encounter Procedures Procedure Name Priority Date/Time Associated Diagnosis Comments VAS DILEEP ABD DOPPLER AO IVC ILIAC Routine 07/10/2020 2:18 PM CDT Peripheral vascular disease with claudication (HCC) documented in this encounter Results * VAS DILEEP ABD DOPPLER AO IVC ILIAC (07/10/2020 2:18 PM CDT) Anatomical Region Laterality Modality Pelvis, Abdomen Intravascular Ul trasound 07/10/2020 1:16 PM CDT Narrative Procedure Note Eric Costa MD - 07/11/2020 Asa Mcnamara MD VASCULAR LAB ORDERAB LES documented in this encounter Visit Diagnoses Diagnosis Peripheral vascular disease with claudication (HCC) Peripheral vascular disease, unspecified documented in this encounter Care Teams Research Tech Relationship Specialty Start Date End Date Neva Holden MD [address] [place] [phone] PCP - General 05/06/20 05/25/23 documented as of this encounter
--- OUTSIDE RECORDS SUMMARY | 2024-11-12 04:44 | XMS_ITS | Encounter Summary ---
Author Organization [facility] Address [address] [place] [address] Care Team Providers Care Sane Rn Name Role Phone Neva Holden MD Primary Care Provider [phone] Reason for Visit * Reason Comments Blurred Vision Encounter Details Date Type Department Care Team (Late st Contact Info) Description 07/02/2020 8:00 AM CDT Office Visit [facility] [address] [place] [address] Anne Mitchell, OD [address] [facility] [place] [id number] Refractive error (Primary Dx); Blurred vision Social History Tobacco Use Types Packs/Day Years [...] PM CDT documented as of this encounter Progress Notes * Anne Mitchell, OD - 07/02/2020 10:32 AM CDT HPI Chief Complaint Patient presents with ??? Blurred Vision broken glasses. needs updated Rx. Recent full exam with retina No acute vision changes Blur without glasses near and far, OU The following was also reviewed and updated: [...] Reasons: Major Depressive Disorder 30 capsule 2 ??? isosorbide mononitrate [...] by mouth at bedtime Reasons: Trouble Sleeping 30tablet 2 ??? vitamin D, ergocalciferol, (DRISDOL) 91245 UNITS capsule No current facility-administered medications for this visit. Allergies Allergen Reactions ??? Penicillins Other and Urticaria unknown Reaction: Hives, ??? Risperidone Other Reported her face getting swollen ??? Haloperidol Other unknown ??? Ketorolac Tromethamine Unknown Review of Systems No past medical history on file. Past Surgical History: Procedure Laterality Date ??? Cholecystectomy 2006 ??? HX C SECTION CLASSIC 1989 ??? HX CAROTID ENDARDECTOMY 2014 ??? HX TUBAL LIGATION 1989 ??? TX FOOT/TOES SURGERY PROC UNLISTED ??? Tympanostomy 2014 [...] (Snellen - Linear) Right Left Dist cc 20/20 -2 20/20 -2 Correction: Glasses Pupils Pupils Shape React APD Right PERRL Round Brisk None Left PERRL Round Brisk None Visual Matthew Left Right Full Full Extraocular Movement Right Left Full Full Refraction Wearing Rx Sphere Cylinder [place] Right -2.50 +0.50 141 Left -3.00 +1.50 027 Manifest Refraction Sphere Cylinder [place] Dist [place] Right -2.75 +0.25 137 20/20-1 Left -3.00 +1.50 030 20/20-1 Does not want add Final Rx Sphere Cylinder [place] Dist [place] Right -2.75 +0.25 137 20/20-1 Left -3.00 +1.50 030 20/20-1 Expiration Date: 07/03/2021 Study findings: none Assessment/Plan Refractive visit - New glasses Rx Followed for AMD By retina - encouraged continued f/u, next visit is in nov. Anne Mitchell, OSCAR documented in this encounter Plan of Treatment Upcoming Encounters Date Type Department Care Team (Late st Contact Info) Description 01/19/2025 11:30 AM AIR QUALITY SPECIALIST Procedure visit [facility] Urology [address] [place] [address] [address] [place] [address] Jose Oliver MD [address] [address] documented as of this encounter Visit Diagnoses Diagnosis Refractive error- Primary Unspecified disorder of refraction and accommodation Blurred vision Other specified visual disturbances documented in this encounter Care Teams Sane Rn Relationship Specialty Start Date End Date Neva Holden MD [address] [place] [phone] PCP - General 05/06/20 05/25/23 documented as of this encounter
--- OUTSIDE RECORDS SUMMARY | 2024-11-12 04:44 | XMS_ITS | Encounter Summary ---
Author Organization [facility] Address [address] [facility] [place] [address] Care Team Providers Care Religious Assistant Name Role Phone Neva Holden MD Primary Care Provider [phone] Reason for Visit * Reason Comments Refill Request Encounter Details Date Type Department Care Team (Late Contact Info) Description 08/13/2021 Refill [facility] [address] [facility] [address] [place] [address] Monica Quijano MD Refill Request Social History [...] (Late Contact Info) Description 01/19/2025 11:30 AM SPOT 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 Procedure visit [facility] Urology [address] [place] [address] [address] [place] [phone] Jose Oliver MD [address] DIV OF [place]OLOGIC [place] [address] documented as of this encounter Goals Goal [...] on filedocumented in this encounter Care Teams Religious Assistant Relationship Specialty Start Date End Date Neva Holden MD [address] [place] [phone] PCP - General 05/06/20 05/25/23 documented as of this encounter
--- OUTSIDE RECORDS SUMMARY | 2024-11-12 04:44 | XMS_ITS | Encounter Summary ---
Author Organization [facility] Address [address] [place] [address] Care Team Providers Care Hydraulic Press Operator Name Role Phone Neva Holden MD Primary Care Provider [phone] Reason for Visit * Reason Onset Date Comments General 04/23/2021 Encounter Details Date Type Department Care Team (Late Contact Info) Description 04/23/2021 Telephone [facility] [address] [facility] [address] [place] [address] Jacquelin Malloy, RN General Social History Tobacco Use Types Packs/Day Years [...] Miscellaneous Notes * Telephone Encounter - Jacquelin Malloy, RN - 04/23/2021 3:11 PM CDT Received call from patient asking to review how to give Repatha. Reviewed instructions for dispensing injection over the phone with patient. documented in this encounter Plan of Treatment Upcoming Encounters Date Type Department Care Team (Late Contact Info) Description 01/19/2025 11:30 AM ONCOLOGY REGISTRAR Procedure visit [facility] [address] [place] [address] [address] [place] [address] Jose Oliver MD [address] [place] [address] documented as of this encounter Goals Goal [...] on filedocumented in this encounter Care Teams Hydraulic Press Operator Relationship Specialty Start Date End Date Neva Holden MD [address] [place] [phone] PCP - General 05/06/20 05/25/23 documented as of this encounter
--- OUTSIDE RECORDS SUMMARY | 2024-11-12 04:45 | XMS_ITS | Encounter Summary ---
Author Organization [facility] Address [address] [facility] [place] [address] Care Team Providers Care Buddhist Monk Name Role Phone Dane Sullivan Primary Care Provider Encounter Details Date Type Department Care Team (Latest Contact Info) Description 10/08/2015 Hospital Outpatient Visit [facility] [address] [facility], [place] [address] Kenan Singh MD [address] [place] [address] Discharge Disposition: Home or Self Care Social History Tobacco Use Types Packs/Day Years Used Date Smoking Tobacco: Never Assessed Sex and Gender Information Value Date Recorded Sex Assigned at Not on file Gender Identity Not on file Sexual Orientation Not on file documented as of this encounter Plan of Treatment Upcoming Encounters Date Type Department Care Team (Late st Contact Info) Description 01/19/2025 11:30 AM PALLET ASSEMBLER Procedure visit [facility] [address] [facility] [address] [place] [address] Jose Oliver MD [address] [place] [address] 2L [place] [phone] documented as of this encounter Procedures Procedure Name Priority Date/Time Associated Diagnosis Comments XR KNEE RIGHT 4VW OR MORE Routine 10/08/2015 8:35 AM PALLET ASSEMBLER XR KNEE LEFT 4VW OR MORE Routine 10/08/2015 8:35 AM PALLET ASSEMBLER documented in this encounter Results * XR KNEE RIGHT 4VW OR MORE (10/08/2015 8:35 AM PALLET ASSEMBLER) Anatomical Region Laterality Modality Lower Extremity Other Impressions 10/08/2015 11:03 AM PALLET ASSEMBLER Impression: 1. No acute osseous injury. 2. [...] 11:03 AM . Narrative 10/08/2015 11:03 AM PALLET ASSEMBLER Examination: 1. XR KNEE RIGHT 4+ VW [...] LEFT 4VW OR MORE (10/08/2015 8:35 AM PALLET ASSEMBLER) Anatomical Region Laterality Modality Lower Extremity Other Impressions 10/08/2015 11:03 AM PALLET ASSEMBLER Impression: 1. No acute osseous injury. 2. [...] 11:03 AM . Narrative 10/08/2015 11:03 AM PALLET ASSEMBLER Examination: 1. XR KNEE RIGHT 4+ VW [...] Kiser M.D on 10/08/2015 10:09 AM . IDr. CURTIS MD have personally reviewed and interpreted thisexamination/study. This report was electronically signed by CURTIS LUI MD on10/08/2015 11:03 AM . Kenan Singh MD DIAGNOSTIC IMAGING ORDERABLES documented in this encounter Visit Diagnoses Diagnosis Pain in right knee Pain in joint, lower leg Pain in left knee Pain in joint, lower leg documented in this encounter Care Teams Buddhist Monk Relationship Specialty Start Date End Date Dane Sullivan DO PCP - General 06/24/17 05/05/20 documented as of this encounter
--- OUTSIDE RECORDS SUMMARY | 2024-11-12 04:45 | XMS_ITS | Encounter Summary ---
Author Organization [facility] Address [address] [facility] [place] [address] Care Team Providers Care Delivery Of Shopping News Name Role Phone Dane Sullivan Primary Care Provider Encounter Details Date Type Department Care Team (Latest Contact Info) Description 04/12/2015 Hospital Outpatient Visit [facility] [address] [place] [address], [place] [address] Александр Sacnhez MD [address] [place], [place] [phone] Discharge Disposition: Home or Self Care Social [...] st Contact Info) Description 01/19/2025 11:30 AM UTILITY PIPE LAYER Procedure visit [facility] [address] [place] [address] [address] [place] [phone] Jose Oliver MD [address] [place] [address] 2L [place] [phone] documented as of this encounter Procedures Procedure Name Priority Date/Time Associated Diagnosis Comments XR CERVICAL SPINE 2 OR 3VW Routine 04/12/2015 10:50 AM CDT XR SCOLIOSIS 1VW Routine 04/12/2015 9:23 AM CDT documented in this encounter Results * XR CERVICAL SPINE 2 OR 3VW [...] Kiser M.D. on 04/12/2015 11:[address] CURTIS [...] Александр Sanchez MD DIAGNOSTIC IMAGING O RDERABLES documented in this encounter Visit Diagnoses Diagnosis Scoliosis (and kyphoscoliosis), idiopathic Cervicalgia documented in this encounter Care Teams Delivery Of Shopping News Relationship Specialty Start Date End Date Dane Sullivan DO PCP - General 06/24/17 05/05/20 documented as of this encounter
--- OUTSIDE RECORDS SUMMARY | 2024-11-12 04:45 | XMS_ITS | Encounter Summary ---
Author Organization [facility] Address [address] [facility] [place] [address] Care Team Providers Care Piano Mechanic Name Role Phone Dane Sullivan DO Primary Care Provider Encounter Details Date Type Department Care Team (Latest Contact Info) Description 04/12/2015 Hospital Outpatient Visit [facility] [address] [facility], [place] [address] Александр Sanchez MD [address] [place], [place] [phone] Discharge Disposition: Home or Self Care Social [...] st Contact Info) Description 01/19/2025 11:30 AM SCREENPLAY WRITER Procedure visit [facility] [address] [place] [address] [address] [place] [phone] Jose Oliver MD [facility] 2L DIV [place]OLOGIC [place] [phone] documented as of this encounter Visit Diagnoses Not on filedocumented in this encounter Care Teams Piano Mechanic Relationship Specialty Start Date End Date Dane Sullivan DO PCP - General 06/24/17 05/05/20 documented as of this encounter
--- OUTSIDE RECORDS SUMMARY | 2024-11-12 04:46 | XMS_ITS | Encounter Summary ---
Author Organization [facility] Address [facility] [place] [address] [place] [address] Care Team Providers Care Dredge Captain Name Role Phone Asa Mcnamara MD Unavailable [phone] Neva Holden MD Primary Care Provider [phone] Reason for Visit * Reason Onset Date Comments Testing 07/31/2020 Encounter Details Date Type Department Care Team (Late st Contact Info) Description 07/31/2020 Telephone [facility] at [facility], [address] [place] [address] Kaylee Raza PA-C [address] [facility], [address] [place] [address] Testing Social History Tobacco Use Types Packs/Day Years Used Date Smoking Tobacco: Every Day Cigarettes Smokeless Tobacco: Never Comments:1 pk day Alcohol Use Standard Drinks/Week Comments No 0 (1 standard drink = 0.6 oz pur e alcohol) Comments Unknown Sex and Gender Information Value Date Recorded Sex Assigned at Female 12/06/2019 3:36 PM SUPERVISOR ORDER TAKERS Legal Sex Female 5:20 PM CDT Gender Identity Female 12/06/2019 3:36 PM SUPERVISOR ORDER TAKERS Sexual Orientation Straight 12/06/2019 3: 36 PM SUPERVISOR ORDER TAKERS Occupation Industry Job Start Date Job End Date Not on file Not on file Not on file Not on file documented as of this encounter Progress Notes * Nery Cadet - 08/01/2020 10:22 AM CDT Patient is scheduled with Dr. Clark at [facility] on 08-08-20 @ 10:15 am. Patient aware. Records faxed to [phone]. * Kaylee Raza PA-C - 07/31/2020 4:25 PM CDT Discussed recent vascular testing with patient. B/L common iliac stents are patent. Elevated velocity in the lt KALANI, suggestive of high grade stenosis. She continues to report pain in her buttocks and calves with walking. She has pain in left leg at rest. Denies nonhealing ulcers. Insurance is not accepted at [facility]. Most of patient's MDs are at [facility]. Will place referral for vascular MD at [facility]. Patient voiced understanding. Please place urgent referral for vascular at [facility]. Dx: PVD; lifestyle limiting claudication Please fax results to PCP. documented in this encounter Plan of Treatment Not on file documented as of this encounter Visit Diagnoses Not on filedocumented in this encounter Care Teams Dredge Captain Relationship Specialty Start Date End Date Neva Holden MD [facility] [address] [place] [address] PCP - General FAMILY PRACTICE 02/14/20 Asa Mcnamara MD [facility]. [address] [place] [address] [facility] Strawhat Sizer CARDIOVASCULAR DISEASE 05/15/16 documented as of this encounter
--- OUTSIDE RECORDS SUMMARY | 2024-11-12 04:46 | XMS_ITS | Encounter Summary ---
Author Organization [facility] Address [facility]. [place], [place] [address] [place] [address] Care Team Providers Care Ocean Export Coordinator Name Role Phone Asa Mcnamara MD Unavailable [phone] Deisi Andrews MD Primary Care Provider [phone] Reason for Visit * Reason Onset Date Comments Information 02/13/2019 Martir Ventura D.O. / cardiac clearance request Encounter Details Date Type Department Care Team (Late st Contact Info) Description 02/13/2019 Telephone [facility] at [facility] [address] [place] [address] Asa Mcnamara MD [facility]. [facility] [address] [place] [address] Information (Martir Ventura D.O. / cardiac clearance request) Social History Tobacco Use Types Packs/Day Years Used Date Smoking Tobacco: Every Day Cigarettes Smokeless Tobacco: Never Comments:1 pk day Alcohol Use Standard Drinks/Week Comments No 0 (1 standard drink = 0.6 oz pur e alcohol) Comments Unknown Sex and Gender Information Value Date Recorded Sex Assigned at Female 12/06/2019 3:36 PM DOMAIN ARCHITECT Legal Sex Female 5:20 PM CDT Gender Identity Female 12/06/2019 3:36 PM DOMAIN ARCHITECT Sexual Orientation Straight 12/06/2019 3: 36 PM DOMAIN ARCHITECT Occupation Industry Job Start Date Job End Date Not on file Not on file Not on file Not on file documented as of this encounter Progress Notes * Nery Cadet - 02/14/2019 8:45 AM CDT Clearance faxed to [phone] and form put in scanning * Mirna Wise - 02/13/2019 9:13 AM CDT 02/13/19 I received another cardiac clearance request. They received our cardiac clearance letter, but would like the form to be completed. I will put on Nery's desk. documented in this encounter Plan of Treatment Not on file documented as of this encounter Visit Diagnoses Not on filedocumented in this encounter Care Teams Ocean Export Coordinator Relationship Specialty Start Date End Date Deisi Andrews MD [address] [place] [address] PCP - General FAMILY PRACTICE 06/15/17 10/14/19 Asa Mcnamara MD [facility] [address] [place] [address] [place] Postal Transportation Clerk CARDIOVASCULAR DISEASE 05/15/16 documented as of this encounter
--- OUTSIDE RECORDS SUMMARY | 2024-11-12 04:46 | XMS_ITS | Encounter Summary ---
Author Organization [facility] Address [address] [facility] [place] [address] [place] [address] Care Team Providers Care Racing Board Marker Name Role Phone Asa Mcnamara MD Unavailable [phone] Neva Holden MD Primary Care Provider [phone] Deisi Andrews MD Primary Care Provider [phone] Neva Holden MD Primary Care Provider [phone] Encounter Details Date Type Department Care Team (Late st Contact Info) Description 11/01/2019 [facility] at [address] [address] Rafael Thakur MA Social History Tobacco Use Types Packs/Day Years Used Date Smoking Tobacco: Every Day Cigarettes Smokeless Tobacco: Never Comments:1 pk day Alcohol Use Standard Drinks/Week Comments No 0 (1 standard drink = 0.6 oz pur e alcohol) Comments Unknown Sex and Gender Information Value Date Recorded Sex Assigned at Female 12/06/2019 3:36 PM KEY OPERATOR Legal Sex Female 5:20 PM CDT Gender Identity Female 12/06/2019 3:36 PM KEY OPERATOR Sexual Orientation Straight 12/06/2019 3: 36 PM KEY OPERATOR Occupation Industry Job Start Date Job End Date Not on file Not on file Not on file Not on file documented as of this encounter Plan of Treatment Not on file documented as of this encounter Procedures Procedure Name Priority Date/Time Associated Diagnosis Comments CBC (OUTSIDE LAB) Routine 10/31/2019 BASIC METABOLIC PANEL Routine 10/31/2019 documented in this encounter Results * CBC (OUTSIDE LAB) (10/31/2019) WBC 15.0 HGB 12.7 HCT 37.5 PLT 237 10/31/2019 us Doc [facility] Abstract LAB-OUTSIDE/ABSTRACTED Final Result * (ABNORMAL) BASIC METABOLIC PANEL (10/31/2019) SODIUM S/P/B 139 POTASSIUM S/P/B 3.9 CO2 26 CHLORIDE S/P/B 102 GLUCOSE 221 mg/dL CALCIUM S/P/B 9.5 BUN 22 CREATININE S/P/B 0.78 0.5 - 1.0 EGFR AFR. AMER. 98(A) <=90 EGFR NON-AFR. AMER. 84 <=90 10/31/2019 us Doc [facility] Abstract LABORATORY Final Result documented in this encounter Visit Diagnoses Not on filedocumented in this encounter Care Teams Racing Board Marker Relationship Specialty Start Date End Date Neva Hodlen MD [facility] [address] [place] [address] PCP - General FAMILY PRACTICE 10/15/19 12/05/19 Deisi Andrews MD [address] [place] [address] PCP - General FAMILY PRACTICE 12/06/19 02/13/20 Neva Holden MD [facility] [address] [place] [address] PCP - General FAMILY PRACTICE 02/14/20 Asa Mcnamara MD Three [facility]. [facility] [address] [place] [address] Omer Nursing Unit Manager CARDIOVASCULAR DISEASE 05/15/16 documented as of this encounter
--- OUTSIDE RECORDS SUMMARY | 2024-11-12 04:46 | XMS_ITS | Encounter Summary ---
Author Organization [facility] Address [facility] [place] [address] [place] [address] Care Team Providers Care Chronograph Operator Name Role Phone Asa Mcnamara MD Unavailable [phone] Deisi Andrews MD Primary Care Provider [phone] Reason for Visit * Reason Onset Date Comments Other 08/31/2019 Encounter Details Date Type Department Care Team (Late st Contact Info) Description 08/31/2019 Telephone [facility] at [facility], [facility] [address] [place] [address] Asa Mcnamara MD [facility]. [facility] [address] [place] [address] Other Social History Tobacco Use Types Packs/Day Years Used Date Smoking Tobacco: Every Day Cigarettes Smokeless Tobacco: Never Comments:1 pk day Alcohol Use Standard Drinks/Week Comments No 0 (1 standard drink = 0.6 oz pur e alcohol) Comments Unknown Sex and Gender Information Value Date Recorded Sex Assigned at Female 12/06/2019 3:36 PM PROFILE GRINDER TECHNICIAN Legal Sex Female 5:20 PM CDT Gender Identity Female 12/06/2019 3:36 PM PROFILE GRINDER TECHNICIAN Sexual Orientation Straight 12/06/2019 3: 36 PM PROFILE GRINDER TECHNICIAN Occupation Industry Job Start Date Job End Date Not on file Not on file Not on file Not on file documented as of this encounter Progress Notes * Nery Gricel Cadet - 08/31/2019 3:40 PM CDT Patient called about scheduling testing. She was unable to change her insurance (from [place]) andwanted to schedule the testing at [place]. I spoke with Dr. Mcnamara and he advised to hold off on testing for now. Keep follow up apt in Oct. Left message on voicemail for patient with above info. documented in this encounter Plan of Treatment Not on file documented as of this encounter Visit Diagnoses Not on filedocumented in this encounter Care Teams Chronograph Operator Relationship Specialty Start Date End Date Deisi Andrews MD [address] [place] [address] [place] [address] PCP - General FAMILY PRACTICE 06/15/17 10/14/19 Asa Mcnamara MD [facility] [address] [place] [address] [place] Dish Machine Operator CARDIOVASCULAR DISEASE 05/15/16 documented as of this encounter
--- OUTSIDE RECORDS SUMMARY | 2024-11-12 04:46 | XMS_ITS | Encounter Summary ---
Author Organization [facility] Address [facility] [facility] [place] [address] [place] [address] Care Team Providers Care Adult Care Provider Name Role Phone Asa Mcnamara MD Unavailable [phone] Neva Holden MD Primary Care Provider [phone] Encounter Details Date Type Department Care Team (Late st Contact Info) Description 02/29/2020 Scan [facility] at [address] [address] Scanned, Documents Social History Tobacco Use Types Packs/Day Years Used Date Smoking Tobacco: Every Day Cigarettes Smokeless Tobacco: Never Comments:1 pk day Alcohol Use Standard Drinks/Week Comments No 0 (1 standard drink = 0.6 oz pur e alcohol) Comments Unknown Sex and Gender Information Value Date Recorded Sex Assigned at Female 12/06/2019 3:36 PM STUDIO DESIGNER Legal Sex Female 5:20 PM CDT Gender Identity Female 12/06/2019 3:36 PM STUDIO DESIGNER Sexual Orientation Straight 12/06/2019 3: 36 PM STUDIO DESIGNER Occupation Industry Job Start Date Job End Date Not on file Not on file Not on file Not on file COVID-19 Exposure Response Date Recorded In the last month, have you been in contact with someone who was confirmed or suspected to have Coronavirus / COVID-19? No / Unsure 02/22/2020 11:10 AM CDT documented as of this encounter Plan of Treatment Not on file documented as of this encounter Procedures Procedure Name Priority Date/Time Associated Diagnosis Comments STRESS TEST (SCAN ORDER) Routine 01/17/2020 documented in this encounter Results * STRESS TEST (01/17/2020) us Documents Scanned SCANNING Final Result [facility] documented in this encounter Visit Diagnoses Not on filedocumented in this encounter Care Teams Adult Care Provider Relationship Specialty Start Date End Date Neva Holden MD [facility] [address] [place] [address] PCP - General FAMILY PRACTICE 02/14/20 Asa Mcnamara MD [facility] [address] [place] [address] [place] Practice Support Specialist CARDIOVASCULAR DISEASE 05/15/16 documented as of this encounter
--- OUTSIDE RECORDS SUMMARY | 2024-11-12 04:46 | XMS_ITS | Encounter Summary ---
Author Organization [facility] Address [facility] [facility]. [place], [place] [address] [place] [id number] Care Team Providers Care Heater Furnace Name Role Phone Asa Mcnamara MD Unavailable [phone] Deisi Andrews MD Primary Care Provider [phone] Encounter Details Date Type Department Care Team (Latest Contact Info) Description 08/17/2019 Scan [facility] Scanned, Documents Social History Tobacco Use Types Packs/Day Years Used Date Smoking Tobacco: Every Day Cigarettes Smokeless Tobacco: Never Comments:1 pk day Alcohol Use Standard Drinks/Week Comments No 0 (1 standard drink = 0.6 oz pur e alcohol) Comments Unknown Sex and Gender Information Value Date Recorded Sex Assigned at Female 12/06/2019 3:36 PM TUBE WINDER [employer] Legal Sex Female 5:20 PM CDT Gender Identity Female 12/06/2019 3:36 PM TUBE WINDER HAND Sexual Orientation Straight 12/06/2019 3: 36 PM TUBE WINDER HAND Occupation Industry Job Start Date Job End Date Not on file Not on file Not on file Not on file documented as of this encounter Plan of Treatment Not on file documented as of this encounter Visit Diagnoses Not on filedocumented in this encounter Care Teams Heater Furnace Relationship Specialty Start Date End Date Deisi Andrews MD [address] [place] [address] [place] [address] PCP - General FAMILY PRACTICE 06/15/17 10/14/19 Asa Mcnamara MD [facility]. [facility] [address] [place] [address] [place] Self Pay Representative CARDIOVASCULAR DISEASE 05/15/16 documented as of this encounter
--- OUTSIDE RECORDS SUMMARY | 2024-11-12 04:46 | XMS_ITS | Encounter Summary ---
Author Organization [facility] Address [facility]. [place], [place] [id number] [place] [id number] Care Team Providers Care Fax Machine Repairer Name Role Phone Asa Mcnamara MD Unavailable [phone] Neva Holden MD Primary Care Provider [phone] Reason for Visit * Reason Comments Peripheral Vascular Disease 3 month foll ow-up Encounter Details Date Type Department Care Team (Late st Contact Info) Description 02/21/2020 8:30 AM CDT Office Visit [facility] at [facility], [facility] [address] [place], [place] [id number] Asa Mcnamara MD [facility]. [facility] [address] [place] [address], [place] [id number] Peripheral Vascular Disease (3 month follow-up ) Social History Tobacco Use Types Packs/Day Years Used Date Smoking Tobacco: Every Day Cigarettes Smokeless Tobacco: Never Comments:1 pk day Alcohol Use Standard Drinks/Week Comments No 0 (1 standard drink = 0.6 oz pur e alcohol) Comments Unknown Sex and Gender Information Value Date Recorded Sex Assigned at Female 12/06/2019 3:36 PM NURSE PRACTITIONER Legal Sex Female 5:20 PM CDT Gender Identity Female 12/06/2019 3:36 PM NURSE PRACTITIONER Sexual Orientation Straight 12/06/2019 3: 36 PM NURSE PRACTITIONER Occupation Industry Job Start Date Job End Date Not on file Not on file Not on file Not on file COVID-19 Exposure Response Date Recorded In the last month, have you been in contact with someone who was confirmed or suspected to have Coronavirus / COVID-19? No / Unsure 02/22/2020 11:10 AM CDT documented as of this encounter Last Filed Vital Signs Vital Sign Reading Time Taken Comments Blood Pressure 124/72 02/21/2020 9:31 AM CDT ret aken by Pulse 96 02/21/2020 8:36 AM CDT Temperature - - Respiratory Rate - - Oxygen Saturation 95% 02/21/2020 8:36 AM CDT Inhaled Oxygen Concentration - - Weight 97.5 kg (215 lb) 02/21/2020 8:36 AM CDT Height 157.5 cm (5' 2 ) 02/21/2020 8:36 AM CDT Body Mass Index 39.32 02/21/2020 8:36 AM CDT documented in this encounter Patient Instructions * Patient Instructions* Juliana Blandon - 02/21/2020 8:30 AM CDT Images from the original note were not included. Patient Education Patient Education High Cholesterol Discharge Instructions About this topic Cholesterol is a waxy matter in your blood. Your liver makes cholesterol for your body. You also get cholesterol from food that you eat. There are three types of cholesterol: ?? Low-density lipoprotein (LDL) ? This is bad cholesterol. LDL causes cholesterol and other matter to build up and clog your arteries. ?? High-density lipoprotein (HDL) ? This is good cholesterol. HDL helps clear matter from your arteries. ?? Triglycerides ? This is a type of fat in the blood. Your body needs cholesterol to work the right way. But, too much cholesterol is bad for your health. Cholesterol can clog your arteries, lowering blood flow in the body. This may lead to bad health problems like stroke, heart disease, and heart attack. You can control your high cholesterol levels with drugs and lifestyle changes. What care is needed at home? ?? Ask your doctor what you need to do when you go home. Make sure you ask questions if you do not understand what the doctor says. This way you will know what you need to do. ?? If you smoke, stop smoking. ?? If you are too heavy, lose weight. ?? Keep your blood pressure and blood sugar at healthy levels. What follow-up care is needed? Your doctor may ask you to make visits to the office to check on your progress. Be sure to keep these visits. What drugs may be needed? The doctor may order drugs to: ?? Lower LDL levels ?? Control blood pressure and blood sugar, if needed Will physical activity be limited? Regular exercise can help. Try to do something that gets your heart rate up, like walking, for 30 minutes most days. Talk to your doctor about the right amount of activity for you. What changes to diet are needed? Eating a healthy diet is important during this time. Ask to see a dietitian for help with a plan that is right for you. In general, eating healthy means: ?? Eat whole grain foods and foods high in fiber. ?? Choose many different fruits and vegetables. Fresh or frozen is best. Canned fruits and vegetables can have added sugar and salt. ?? Cut back on solid fats like butter or stick margarine. Eat less fatty or processed foods. Avoid trans fats. ?? Choose foods with heart healthy fats. This includes fish and seafood, nuts, seeds, and unsaturated vegetable oils like canola and olive. ?? Eat more low fat or lean meats like chicken, fish, turkey, venison, lean beef, and lean pork. Eat less red meat. Try eating nonmeat protein such as beans, nuts, and nut butters; seeds; or meat alternatives made with soy or textured vegetable protein. ?? Limit beer, wine, and mixed drinks (alcohol). ?? Avoid caffeine. What problems could happen? ?? Heart attack ?? Heart disease ?? Stroke What can be done to prevent this health problem? ?? Eat a heart healthy diet with heart healthy fats, lots of fruit, vegetables, and whole grains. ?? Keep a healthy weight. ?? Get regular exercise. When do I need to call the doctor? Activate the emergency medical system right away if you have signs of a heart attack or stroke. Call 911 in the [place] or [place]. The sooner treatment begins, the better your chances for recovery. Call for emergency help right away if you have: ?? Signs of heart attack: ? Chest pain ? Trouble breathing ? Fast heartbeat ? Feeling dizzy ?? Signs of stroke: ? Sudden numbness or weakness of the face, arm, or leg, especially on one side of the body ? Sudden confusion, trouble speaking or understanding ? Sudden trouble seeing in one or both eyes ? Sudden trouble walking, dizziness, loss of balance or coordination ? Sudden severe headache with no known cause Teach Back: Helping You Understand The Teach Back Method helps you understand the information we are giving you. The idea is simple. After talking with the staff, tell them in your own words what you were just told. This helps to makesure the staff has covered each thing clearly. It also helps to explain things that may have been abit confusing. Before going home, make sure you are able to do these: ?? I can tell you about my condition. ?? I can tell you what changes I need to make with my diet. ?? I can tell you what I will do if I have signs of a heart attack or stroke. Where can I learn more? [employer] http://familydoctor.org/familydoctor/en/diseases-conditions/high-cholesterol.gaviota nterview.[email or web address].html [employer] [employer] http://[email or web address].org/HEARTORG/Conditions/Cholesterol/PreventionTreatmentofHighCh olesterol/Yvaagmnudg-jvo-Kjrcmvrls-rg-Vrad-Vteddjuvxfn_[email or web address] Last Reviewed Date 2019-05-24 Consumer Information Use and Disclaimer This information is not specific medical advice and does not replace information you receive from your health care provider. This is only a brief summary of general information. It does NOT include all information about conditions, illnesses, injuries, tests, procedures, treatments, therapies, discharge instructions or life-style choices that may apply to you. You must talk with your health care provider for complete information about your health and treatment options. This information should not be used to decide whether or not to accept your health care provider???s advice, instructions or recommendations. Only your health care provider has the knowledge and training to provide advice that is right for you. Copyright Copyright ?? 2020 [employer] and its affiliates and/or licensors. All rights reserved. documented in this encounter Progress Notes * Asa Mcnamara MD - 02/21/2020 8:30 AM CDT Chief Complaint: Peripheral Vascular Disease (3 month follow-up ) History of Present Illness: Ms. Zaidi is a pleasant 59-year-old female with type 2 diabetes mellitus, hypertension and peripheral vascular disease. She had endovascular intervention of bilateral iliac arteries in November 2017. She returns for her scheduled 3- month follow-up visit. She continues to complain of chest pain. Description is not typical. She describes this as a stabbing pain on the left side. Symptoms occur at rest and with activity. Today, she was able to walk from the parking lot to the hospital and did not experience any chest pain. Occasionally she feels fluttering around her chest. Symptoms usually last for less than 1 minute. Occasionally the pain lasts longer. She took one sublingual nitroglycerin last month and that seemed to help. Functional capacity remains very limited. She is not able to walk more than 50 feet, she has to stop because of bilateral calf pain. Symptoms have remained unchanged since last visit. No history of rest pain or nonhealing ulcers. She continues to smoke. She also reports dyspnea on exertion. Recommendations/Plan: ASSESSMENT: 1. Bilateral lower extremity peripheral vascular disease, endovascular intervention of bilateral iliac arteries in 11/2017, stable ?? 2. Carotid artery disease, left carotid endarterectomy in 2014. 3. History of stroke. 4. Hypertension, well controlled. ?? 5. Mixed hyperlipidemia, on statin. ?? 6. Type 2 diabetes mellitus. ?? 7. Likely COPD. ?? 9. Obstructive sleep apnea, not on CPAP. 10. Atypical chest pain 11. Abnormal stress test RECOMMENDATIONS/PLAN: Ms. Zaidi complains of chest pain. Description is not typical. Stress test was clinically and electrocardiographically negative. SPECT images reported mild fixed defect in the inferior wall with normal wall motion. Not able to review the images. However findings would likely suggest attenuation artifact. Findings are low risk. Reasonable to continue with medical management and avoid any nonurgent procedures during the virus pandemic. She agrees with this plan. There is room to optimize her antianginal regimen. I recommended increasing metoprolol XL to 25 mg twice daily, increase isosorbide mononitrate to 60 mg daily. Blood pressure is overall well controlled. To prevent significant drop in BP, I would recommend discontinuing amlodipine. Continue losartan at the current dose. She is on high-dose rosuvastatin. Will refill Zetia. Recheck lipid panel prior to her next visit. She continues to report discomfort in her legs. Symptoms periodically get worse without any obviousexacerbating factor. On exam today she has 2+ pedal pulses with strong biphasic signal on Doppler. Follow-up Doppler studies done at an outside facility show normal KENZIE bilaterally. Overall, her symptoms are stable. They do seem out of proportion to the severity of disease. Continue aspirin and cilostazol. Clopidogrel was discontinued in 2019 after she had blood in the stools. Recent labs show stable hemoglobin. She has been counseled about regular exercise and quitting smoking. Ms. Zaidi had left carotid endarterectomy in 2014. Follow-up carotid duplex shows moderate disease in the right ICA, stable compared to last year. We will continue with clinical follow-up and repeat duplex in 1 year. She appears stable from a heart failure standpoint. Her weight has remained stable. She has significant history of smoking and likely COPD. Shortness of breath is also due to underlying lung disease.Continue furosemide at the current dose. Renal function is stable. ?? It has been my pleasure to participate in Ms. Zaidi's care. She will return for a follow-up visit in 3 months, earlier if needed. Thank you for the consultation. ?? DATA REVIEWED: Arterial Doppler done 01/26/2020. KENZIE right leg 1.02 with TBI 0.91. KENZIE left leg 1.1 with TBI 0.64. Carotid duplex done 07/24/2019. 50-69% stenosis right ICA. Less than 50% stenosis left ICA. Vertebralartery flow is antegrade bilaterally. Arterial Doppler done 12/19/2018. KENZIE right leg 1.1 with triphasic waveforms and TBI of 0.78. KENZIE left leg 1.1 with triphasic waveforms and TBI of 0.76. No significant change in KENZIE with exercise. Aortoiliac duplex done 12/19/2018. Patent stent in right common iliac artery with elevated velocity (PSV 275 cm/s). Patent stent in left common iliac artery with elevated velocity (253 cm/s). No significant disease bilateral external iliac arteries. Compared to previous exam done 12/31/2017, mild increase in velocity bilateral KALANI stents. Carotid duplex done 06/27/2018. 50-69% stenosis right internal carotid artery, PSV 178 cm/s, ratio 3.1. No significant disease left internal carotid artery. Vertebral artery flow is antegrade bilaterally. Elevated velocities in the left external carotid artery consistent with >50% stenosis. Vascular angiogram performed 12/06/2017. High-grade in-stent restenosis in left KALANI with 25-30 mm gradient treated with a 7.0 x 30 mm iCast covered stent postdilated using 8.0 x 40 mm balloon. Mild in-stent restenosis in right KALANI treated using 7.0 x 20 mm balloon. CARDIAC STUDIES: EKG done on 05/17/2017. Sinus rhythm, normal intervals. Normal ECG. Pharmacologic stress test done 01/17/2020. Clinically and electrocardiographically negative. Small, mild, fixed perfusion defect involving the mid inferior wall. No reversible abnormality. Normal wall motion. EF > 70%. Holter monitor done 06/22/2017. Sinus rhythm with episodes of sinus tachycardia. No significant ectopy or arrhythmias noted. Symptoms do not correlate with any significant rhythm abnormality. Echocardiogram done 04/17/2016 shows EF 65-70%, Mild concentric LVH. Grade I diastolic dysfunction, trace mitral regurgitation, mild tricuspid regurgitation. RVSP 35 mm Hg. ?? Pharmacologic myoview Stress test done 04/20/2016: Clinically and electrocardiographically negative stress test. Normal myocardial perfusion, EF 69%. Lab Results Component Value Date/Time CHOL 173 12/19/2018 07:52 AM TRI 155 (H) 12/19/2018 07:52 AM HDL 44 12/19/2018 07:52 AM LDL 98 12/19/2018 07:52 AM NA 139 10/31/2019 K 3.9 10/31/2019 BUN 22 10/31/2019 CR 0.78 10/31/2019 GLU 221 10/31/2019 ALT 31 04/27/2017 WBC 15.0 10/31/2019 HGB 12.7 10/31/2019 PLT 237 10/31/2019 HGBA1C 5.9% 03/26/2016 11:28 AM TSH 3.99 09/02/2016 08:13 AM TSH 3.99 09/02/2016 08:13 AM ? Medications: Current Outpatient Medications: ??? albuterol sulfate HFA (VENTOLIN HFA) 108 (90 BASE) MCG/ACT inhaler, Inhale 2 puffs into the lungs every 4 (four) hours as needed for Wheezing., Disp: , Rfl: ??? ALPRAZolam (XANAX) 1 MG tablet, Take 1 tablet (1 mg total) by mouth 3 (three) times daily as needed for Anxiety., Disp: , Rfl: ??? aspirin 81 MG tablet, Take 1 tablet (81 mg total) by mouth daily., Disp: , Rfl: ? ? CHANTIX STARTING MONTH LISS 0.5 MG X 11 & 1 MG X 42 tablet, FPD UTD, Disp: , Rfl: ??? cilostazol 100 MG tablet, Take 1 tablet (100 mg total) by mouth 2 (two) times daily., Disp: 180tablet, Rfl: 1 ??? cyclobenzaprine 10 MG tablet, Take 1 tablet (10 mg total) by mouth as needed for Muscle Spasms., Disp: , Rfl: ??? ezetimibe 10 MG tablet, Take 1 tablet (10 mg total) by mouth daily., Disp: 90 tablet, Rfl: 1 ??? fexofenadine (SAMANTHA ALLERGY) 180 MG tablet, Take 1 tablet (180 mg total) by mouth daily., Disp: , Rfl: ??? Fish Oil 1000 MG Cap, Take 2,000 mg by mouth 2 (two) times daily., Disp: , Rfl: ??? fluoxetine 40 MG capsule, Take 40 mg by mouth daily., Disp: , Rfl: ??? fluticasone propionate 50 MCG/ACT nasal spray, U 1 SPR IEN ONCE D TO PREVENT NASAL CONGESTION AND DRAINAGE, Disp: , Rfl: ??? furosemide 40 MG tablet, Take 1 tablet (40 mg total) by mouth daily., Disp: 30 tablet, Rfl: 3 ??? hydrocodone-acetaminophen 10-325 MG tablet, Take 1-2 tablets by mouth as needed., Disp: , Rfl: ??? isosorbide mononitrate ER 60 MG 24 hr tablet, Take 1 tablet (60 mg total) by mouth daily., Disp: 90 tablet, Rfl: 1 ??? losartan 100 MG tablet, Take 1 tablet (100 mg total) by mouth daily., Disp: 90 tablet, Rfl: 1 ??? metFORMIN 500 MG tablet, Take 1 tablet (500 mg total) by mouth 2 (two) times daily. Resume on , 12/09/17, Disp: 60 tablet, Rfl: 3 ??? metoprolol succinate ER 25 MG 24 hr tablet, Take 1 tablet (25 mg total) by mouth 2 (two) times daily., Disp: 180 tablet, Rfl: 1 ??? montelukast 10 MG tablet, Take 1 tablet (10 mg total) by mouth daily., Disp: , Rfl: ??? Multiple Vitamins-Minerals (PRESERVISION AREDS) capsule, Take 1 capsule by mouth 2 (two) times daily., Disp: , Rfl: ??? nitroglycerin 0.4 MG SL tablet, Place 1 tablet (0.4 mg total) under the tongue every 5 (five) minutes as needed for Chest Pain (If taking 3rd dose, contact 911.)., Disp: 25 tablet, Rfl: 1 ??? omeprazole 40 MG capsule, Take 40 mg by mouth daily., Disp: , Rfl: ??? potassium chloride CR 20 MEQ tablet, Take 1 tablet (20 mEq total) by mouth daily., Disp: 30 tablet, Rfl: 3 ??? rosuvastatin 40 MG tablet, Take 1 tablet (40 mg total) by mouth nightly at bedtime. Prior Auth APPROVED 12-28-18 through 12-28-2019., Disp: , Rfl: ??? vitamin D2, ergocalciferol, 81576 UNITS capsule, Take 50,000 Units by mouth every 7 days., Disp: , Rfl: ??? COMPRESSION STOCKINGS, 15-20 mm Hg compression knee highs 2 pairs, Disp: 2 Container, Rfl: 0 Allergies Allergen Reactions ??? Wasp Venom Protein Anaphylaxis ??? Codeine Nausea and Vomiting ??? Haloperidol Seizure ??? Penicillins Redness ??? Resperal-Dm [[id number]-Glu-Propyl Jwpkfi-[id number]-Qlitagowm] Seizure ??? Simvastatin Other (see comment) Cant walk, leg pain and cramping ??? Triazolam Seizure ??? Risperidone And Related Hives, Other (see comment), Rash and Unknown Reported her face getting swollen Facial drawn up/tightening Reported her face getting swollen Facial drawn up/tightening Past Medical History: Diagnosis Date ??? Arthritis ??? Asthma ??? Chest pain, unspecified ??? Diabetes (CMS/HCC) ??? Emphysema/COPD (CMS/HCC) ??? Essential (primary) hypertension ??? GERD (gastroesophageal reflux disease) ??? Hypercholesterolemia ??? Migraines ??? Mixed hyperlipidemia ??? PVD (peripheral vascular disease) (CMS/HCC) ??? Stroke (CMS/HCC) h/o Past Surgical History: Procedure Laterality Date ??? SECTION 1989 ??? GALLBLADDER SURGERY 2007 removal ??? IR ANGIOPLASTY PERIPHERAL ??? OTHER PROCEDURE 2012 warts removed ??? OTHER PROCEDURE 2014 tube in left ear ??? TUBAL LIGATION 1989 Social History Socioeconomic History ??? Marital status: Single Spouse name: Not on file ??? Number of children: 2 ??? Years of education: Not on file ??? 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 Financial resource strain: Not on file ??? Food insecurity: Worry: Not on file Inability: Not on file ??? Transportation needs: Medical: Not on file Non-medical: Not on file Tobacco Use ??? Smoking status: Current Every Day Smoker Packs/day: 1.00 Types: Cigarettes ??? Smokeless tobacco: Never Used ??? Tobacco comment: 1 pk day Substance and Sexual Activity ??? Alcohol use: No ??? Drug use: Yes Types: Marijuana ??? Sexual activity: Not on file Lifestyle ??? Physical activity: Days per week: Not on file Minutes per session: Not on file ??? Stress: Not on file Relationships ??? Social connections: Talks on phone: Not on file Gets together: Not on file Attends rastafarian service: Not on file Active member of club or organization: Not on file Attends meetings of clubs or organizations: Not on file Relationship status: Not on file ??? Intimate partner violence: Fear of current or ex partner: Not on file Emotionally abused: Not on file Physically abused: Not on file Forced sexual activity: Not on file Other Topics Concern ??? Service Not Asked ??? Blood Transfusions Not Asked ??? Caffeine Concern Yes Comment: coffee 4x a day ??? Occupational Exposure Not Asked ??? Hobby Hazards Not Asked ??? Sleep Concern Not Asked ??? Stress Concern Not Asked ??? Weight Concern Not Asked ??? Special Diet No ??? Back Care Not Asked ??? Exercise No ??? Bike Helmet Not Asked ??? Seat Belt Not Asked ??? Self-Exams Not Asked Social History Narrative ??? Not on file Family History Problem Relation Name Age of Onset ??? Heart Attack Sister 55 ??? Stent Sister 56 ??? Cancer Sister ??? Thyroid Sister Rama ??? Other (bladder Cancer) Sister Rama ??? Dementia Sister ??? Thyroid Sister Erinn Family Status Relation Name Status ??? Mother at age 63 ??? Father at age 56 ??? Sister lung,tongue ??? Brother at age 48 ??? Daughter Alive ??? Son Alive ??? Sister Rama Alive bladder ??? Sister Alive ??? Sister Erinn Alive Review of Systems Constitutional: Negative for chills, fever and weight loss. HENT: Negative for hearing loss. Eyes: Negative for blurred vision and double vision. Respiratory: Positive for shortness of breath. Negative for hemoptysis. Cardiovascular: Positive for chest pain. Negative for palpitations, orthopnea, leg swelling and PND. Gastrointestinal: Negative for abdominal pain, blood in stool, melena, nausea and vomiting. Genitourinary: Negative for dysuria, hematuria and urgency. Musculoskeletal: Positive for joint pain. Negative for back pain. Skin: Negative for rash. Neurological: Negative for dizziness, sensory change, focal weakness and loss of consciousness. Psychiatric/Behavioral: Negative for memory loss. All other systems reviewed and are negative. Filed Vitals: 02/21/20 0836 02/21/20 0931 BP: 110/72 124/72 Pulse: 96 SpO2: 95% Weight: 97.5 kg (215 lb) Height: 5' 2 (1.575 m) Physical Exam Constitutional: She is oriented to person, place, and time. She appears well- developed and well-nourished. No distress. HENT: Nose: No mucosal edema. Mouth/Throat: Oropharynx is clear and moist and mucous membranes are normal. No oropharyngeal exudate. Neck: Neck supple. No JVD present. Carotid bruit is not present. Cardiovascular: Normal rate, regular rhythm, S1 normal and S2 normal. No extrasystoles are present.Exam reveals no gallop. No murmur heard. Pulses: Femoral pulses are 2+ on the right side, and 2+ on the left side. Popliteal pulses are 2+ on the right side, and 2+ on the left side. Dorsalis pedis pulses are 1+ on the right side, and 1+ on the left side. Posterior tibial pulses are 2+ on the right side, and 2+ on the left side. Pulmonary/Chest: Effort normal and breath sounds normal. No respiratory distress. Abdominal: She exhibits no mass. There is no hepatosplenomegaly. There is no tenderness. Musculoskeletal: She exhibits no deformity. Neurological: She is alert and oriented to person, place, and time. Skin: Skin is warm and dry. No erythema. Psychiatric: She has a normal mood and affect. Her behavior is normal. Thought content normal. No results found for this visit on 08/12/16. Diagnoses/Impression: 1. PVD (peripheral vascular disease) with claudication (CMS/HCC) 2. Mixed hyperlipidemia LIPID PANEL 3. Atypical chest pain 4. Abnormal stress test 5. Essential hypertension 6. Stenosis of right carotid artery documented in this encounter Plan of Treatment Not on file documented as of this encounter Visit Diagnoses Diagnosis PVD (peripheral vascular disease) with claudication (CMS/HCC)- Primary Peripheral vascular disease, unspecified Mixed hyperlipidemia Atypical chest pain Other chest pain Abnormal stress test Other nonspecific abnormal cardiovascular system function study Essential hypertension Unspecified essential hypertension Stenosis of right carotid artery Occlusion and stenosis of carotid artery without mention of cerebral infarction documented in this encounter Care Teams Fax Machine Repairer Relationship Specialty Start Date End Date Neva Holden MD [facility] [id number] [address] PCP - General FAMILY PRACTICE 02/14/20 Asa Mcnamara MD [facility] [address] [place] [address] [facility] Worker CARDIOVASCULAR DISEASE 05/15/16 documented as of this encounter
--- OUTSIDE RECORDS SUMMARY | 2024-11-12 04:46 | XMS_ITS | Encounter Summary ---
Author Organization [facility] Address [address] [facility]. [place], [place] [address] [place] [address] Care Team Providers Care Online Tutor Name Role Phone Asa Mcnamara MD Unavailable [phone] Neva Holden MD Primary Care Provider [phone] Encounter Details Date Type Department Care Team (Latest Contact Info) Description 06/14/2020 Travel Social History Tobacco Use Types Packs/Day Years Used Date Smoking Tobacco: Every Day Cigarettes Smokeless Tobacco: Never Comments:1 pk day Alcohol Use Standard Drinks/Week Comments No 0 (1 standard drink = 0.6 oz pur e alcohol) Comments Unknown Sex and Gender Information Value Date Recorded Sex Assigned at Female 12/06/2019 3:36 PM PHARMACY SERVICE ASSOCIATE Legal Sex Female 5:20 PM CDT Gender Identity Female 12/06/2019 3:36 PM PHARMACY SERVICE ASSOCIATE Sexual Orientation Straight 12/06/2019 3: 36 PM PHARMACY SERVICE ASSOCIATE Occupation Industry Job Start Date Job End Date Not on file Not on file Not on file Not on file COVID-19 Exposure Response Date Recorded In the last month, have you been in contact with someone who was confirmed or suspected to have Coronavirus / COVID-19? Unable to assess 06/14/2020 2:13 PM CDT documented as of this encounter Plan of Treatment Not on file documented as of this encounter Visit Diagnoses Not on filedocumented in this encounter Care Teams Online Tutor Relationship Specialty Start Date End Date Nvea Holden MD [facility] [address] [place] [address] PCP - General FAMILY PRACTICE 02/14/20 Asa Mcnamara MD [facility]. [facility] [address] [place] [address] [place] Nutrition Assistant CARDIOVASCULAR DISEASE 05/15/16 documented as of this encounter
--- OUTSIDE RECORDS SUMMARY | 2024-11-12 04:46 | XMS_ITS | Encounter Summary ---
Author Organization [facility] Address [facility]. [place], [place] [address] [place] [address] Care Team Providers Care Emergency Management Coordinator Name Role Phone Asa Mcnamara MD Unavailable [phone] Deisi [place] MD Primary Care Provider [phone] Encounter Details Date Type Department Care Team (Late st Contact Info) Description 12/27/2018 Orders Only [facility] at [address] [address] Karen Barboza, RN Social History Tobacco Use Types Packs/Day Years Used Date Smoking Tobacco: Every Day Cigarettes Smokeless Tobacco: Never Comments:1 pk day Alcohol Use Standard Drinks/Week Comments No 0 (1 standard drink = 0.6 oz pur e alcohol) Comments Unknown Sex and Gender Information Value Date Recorded Sex Assigned at Female 12/06/2019 3:36 PM SENIOR IT PROJECT MANAGER Legal Sex Female 5:20 PM CDT Gender Identity Female 12/06/2019 3:36 PM SENIOR IT PROJECT MANAGER Sexual Orientation Straight 12/06/2019 3: 36 PM SENIOR IT PROJECT MANAGER Occupation Industry Job Start Date Job End Date Not on file Not on file Not on file Not on file documented as of this encounter Plan of Treatment Not on file documented as of this encounter Visit Diagnoses Not on filedocumented in this encounter Care Teams Emergency Management Coordinator Relationship Specialty Start Date End Date Deisi [place] MD [address] [place] [address] [place] [address] PCP - General FAMILY PRACTICE 06/15/17 10/14/19 Asa Mcnamara MD [facility] [address] [place] [address] [place] [employer] Sales Executive CARDIOVASCULAR DISEASE 05/15/16 documented as of this encounter
--- OUTSIDE RECORDS SUMMARY | 2024-11-12 04:46 | XMS_ITS | Clinical Summary ---
Author Organization [facility] Address [facility]. [place], [place] [address] [place] [address] Care Team Providers Care Corner Trimmer Operator Name Role Phone Asa Mcnamara MD Unavailable [phone] Neva Holden MD Primary Care Provider [phone] Allergies Active Allergy Reactions Criticality Noted Date Comments Codeine Nausea and Vomiting 04/05/2019 Haloperidol Seizure 05/20/2016 Ketorolac Tromethamine Unknown 04/04/2013 Penicillins Hives,Redness High 04/04/2013 Qrj-Ve-Rrp-Propyl Mrjvbo-Vdg-Hgsalnjja Seizure 05/20/2016 Risperidone And Related Hives,Other (see comment),Rash,Unknown Low 04/22/2015 Reported her face getting swollen Facial drawn up/tightening Reported her face getting swollen Facial drawn up/tightening Simvastatin Other (see comment) 04/05/2019 Cant walk, leg pain and cramping Triazolam Seizure 07/01/2016 Wasp Venom Protein Anaphylaxis High 04/05/2019 Medications Multiple Vitamins-Minera ls (PRESERVISION AREDS) capsule Take 1 capsule by mouth 2 (two) times daily. 6 Active albuterol sulfate HFA (VENTOLIN HFA) 108 (90 BASE) MCG/ACT inhaler Inhale 2 puffs into the lungs every 4 (four) hours as needed for Wheezing. 7 Active ALPRAZolam (XANAX) 1 MG tablet Take 1 tablet (1 mg total) by mouth 3 (three) times daily as needed for Anxiety. 7 Active fexofenadine (SAMANTHA ALLERGY) 180 MG tablet Take 1 tablet (180 mg total) by mouth daily. 7 Active COMPRESSION STOCKINGS 15-20 mm Hg compression knee highs 2 pairs 2 Container 7 Active cyclobenzaprine 10 MG tablet Take 1 tablet (10 mg total) by mouth as needed for Muscle Spasms. 7 Active metFORMIN 500 MG tablet Take 1 tablet (500 mg total) by mouth 2 (two) times daily. Resume on , 12/09/17 60 tablet 3 8 Active Fish Oil 1000 MG Cap Take 2,000 mg by mouth 2 (two) times daily. 8 Active aspirin 81 MG tablet Take 1 tablet (81 mg total) by mouth daily. 9 Active furosemide 40 MG tablet Take 1 tablet (40 mg total) by mouth daily. 30 tablet 3 9 Active potassium chloride CR 20 MEQ tablet Take 1 tablet (20 mEq total) by mouth daily. 30 tablet 3 9 Active hydrocodone-maria fernanda taminophen 10-325 MG tablet Take 1-2 tablets by mouth as needed. 9 Active losartan 100 MG tablet Take 1 tablet (100 mg total) by mouth daily. 90 tablet 1 0 Active vitamin D2, ergocalciferol, 98288 UNITS capsule Take 50,000 Units by mouth every 7 days. 0 Active fluticasone propionate 50 MCG/ACT nasal spray U 1 SPR IEN ONCE D TO PREVENT NASAL CONGESTION AND DRAINAGE 0 Active omeprazole 40 MG capsule Take 40 mg by mouth daily. 0 Active CHANTIX STARTING MONTH LISS 0.5 MG X 11 & 1 MG X 42 tablet FPD UTD 0 Active fluoxetine 40 MG capsule Take 40 mg by mouth daily. 0 Active cilostazol 100 MG tablet Take 1 tablet (100 mg total) by mouth 2 (two) times daily. 180 tablet 1 0 Active nitrofurantoin, macrocrystal-mo nohydrate, 100 MG capsuleIndicati ons:for three days Take 100 mg by mouth 2 (two) times daily. Indications: for three days Active rosuvastatin 40 MG tablet Take 1 tablet (40 mg total) by mouth nightly at bedtime. ON HOLD 0 Active ezetimibe 10 MG tablet Take 1 tablet (10 mg total) by mouth daily. 90 tablet 1 0 Active isosorbide mononitrate ER 60 MG 24 hr tablet Take 1 tablet (60 mg total) by mouth daily. 90 tablet 1 0 Active metoprolol succinate ER 50 MG 24 hr tablet Take 0.5 tablets (25 mg total) by mouth 2 (two) times daily. Please call to make an appointment and update insurance information. 30 tablet 1 Active nitroglycerin (NITROSTAT) 0.[address] 1 TABLET UNDER THE TONGUE EVERY 5 MINUTES NEEDED FOR CHEST PAIN (IF NO RELIEF AFTER 3RD DOSE, CONTACT 911) 25 tablet 1 2 Active Active Problems Problem Noted Date Diagnosed Date PVD (peripheral vascular disease) with claudicat ion 12/06/2017 Hypertriglyceridemia 11/25/2017 Hyperlipidemia, mixed 03/22/2017 Chest pain, unspecified Essential (primary) hypertension PVD (peripheral vascular disease) Emphysema/COPD ([facility]) Diabetes ([facility]) Stroke ([facility]) Overview (05/20/2016): h/o Asthma ([facility]) Arthritis GERD (gastroesophageal reflux disease) Migraines Resolved Problems Problem Noted Date Diagnosed Date Resolved Date Hypercholesterolemia 017 Family History Medical History Relation Comments Cancer Sister 1 Heart Attack Sister 1 Stent Cardiac Sister 1 Thyroid Sister 2 bladder Cancer Sister 2 Dementia Sister 3 Thyroid Sister 4 Relation Status Comments Brother (Age 48) Daughter Alive Father (Age 56) Mother (Age 63) Sister 1 lung,tongue Sister 2 Alive bladder Sister 3 Alive Sister 4 Alive Son Alive Social History Tobacco Use Types Packs/Day Years Used Date Smoking Tobacco: Every Day Cigarettes Smokeless Tobacco: Never Comments:1 pk day Alcohol Use Standard Drinks/Week Comments No 0 (1 standard drink = 0.6 oz pur e alcohol) Comments Unknown Sex and Gender Information Value Date Recorded Sex Assigned at Female 12/06/2019 3:36 PM COOK CHILI Legal Sex Female 5:20 PM CDT Gender Identity Female 12/06/2019 3:36 PM COOK CHILI Sexual Orientation Straight 12/06/2019 3: 36 PM COOK CHILI Occupation Industry Job Start Date Job End Date Not on file Not on file Not on file Not on file Last Filed Vital Signs Vital Sign Reading Time Taken Comments Blood Pressure 102/80 06/14/2020 1:49 PM CDT Pulse 98 06/14/2020 1:49 PM CDT Temperature 36.9 ??C (98.4 ??F) 12/07/2017 8:32 AM CS T Respiratory Rate 18 12/07/2017 8:32 AM COOK CHILI Oxygen Saturation 95% 02/21/2020 8:36 AM CDT Inhaled Oxygen Concentration - - Weight 93.9 kg (207 lb) 06/14/2020 1:49 PM CDT Height 157.5 cm (5' 2 ) 06/14/2020 1:49 PM CDT Body Mass Index 37.86 06/14/2020 1:49 PM CDT Plan of Treatment Health Maintenance Due Date Last Done Comments Cervical Cancer Screening Pap Smear (Age 30 to 64) Every 3 Years 1961 Colorectal Cancer Screening Colonoscopy (10 Years) 1961 Kidney Health Evaluation 1961 Annual Physical 1964 Diabetes: Retinopathy Eye Exam 1979 Hepatitis C 1979 DTaP, Tdap and Td Vaccines (1 - Tdap) 1980 Cervical Cancer Screening Pap with HPV Testing (Age 30 to 64) Every 5 Years 1991 Cervical Cancer Screening with HPV 1991 Mammogram Screening 2001 Zoster Vaccines (1 of 2) 2011 Lipid Panel 12/19/2019 12/19/2018, 11/15, 06/27/2018, Additional history exists Hemoglobin A1C 11/01/2020 05/02/2020, 03/15, 09/24/2015 RSV Immunization or 60+ Years (1 - Risk 60-74 years 1-dose series) 2021 COVID-19 Vaccine ( - season) 2024 Influenza Adult (#1) 2024 10/21/2016, 12/16/2015, 07/30/2015 Pneumococcal Vaccine: Pediatrics (0 to 5 Years) and At-Risk Patients (6 to 64 Years) (3 of 3 - PPSV23 or PCV20) 2026 10/21/2016, 12/16/2015 Meningococcal Vaccine Aged Out No jodi jasiel eligible based on patient's age to complete this topic RSV Immunizations Under 20 Months Aged Out No longer eligible based on patient's age to complete this topic Procedures Procedure Name Priority Date/Time Associated Diagnosis Comments HEMOGLOBIN, GLYCOSYLATED Routine 05/02/2020 LIPID PANEL Routine 12/19/2018 7:52 AM COOK CHILI Mixed hyperlipidemia from Last 3 Months or Most Recently Relevant to Health Maintenance Results * HEMOGLOBIN, GLYCOSYLATED (05/02/2020) HGB A1C 7.6 % 05/02/2020 us Doc [facility] LABORATORY Final Result * (ABNORMAL) LIPID PANEL (12/19/2018 7:52 AM COOK [facility]ILI) CHOLESTEROL 173 <200 MG/DL 12/19/2018 8:31 AM [facility] TRIGLYCERIDES 155(H) <150 MG/DL 12/19/2018 8:31 AM [facility] HDL 44 >40.0 MG/DL 12/19/2018 8:31 AM [facility] LDL (CALCULATED) 98 <100 MG/DL 12/19/2018 8:31 AM [facility] NON HDL CHOLESTEROL 129 <130 MG/DL 12/19/2018 8:31 AM [facility] CHOL/HDL RATIO 3.9 0.0 - 4.5 12/19/2018 8:31 AM [facility] VLDL CALCULATION 31 5 - 55 MG/DL 12/19/2018 8:31 AM [facility] LIPID INTERPRETATION 12/19/2018 8:31 AM [facility] Comment: NIH CONCENSUS REPORT RECOMMENDATIONS: ?ADULT ?CHILD ??LOW RISK: ?CHOLESTEROL ? <200 ? <170 ?TRIGLYCERIDE ?<150 ?--- ?HDL ? >=60 ?--- ?LDL ? <100 ? <110 ??BORDERLINE: ?CHOLESTEROL ? 200-239 ?? 170-199 ?TRIGLYCERIDE ?150-199 ? --- ?HDL ?40-59 ?--- ?LDL ? 100-159 ?? 110-129 ??HIGH RISK: ?CHOLESTEROL ? >=240 ?>=200 ?TRIGLYCERIDE ?>=200 ? --- ?HDL ?<40 ?--- ?LDL ? >=160 ?>=130 12/19/2018 7:52 AM [facility] us Asa Mcnamara MD LABORATORY Final Result [facility] [address] [place] [address], from Last 3 Months or Most Recently Relevant to Health Maintenance Insurance [employer] Care Teams Corner Trimmer Operator Relationship Specialty Start Date End Date Neva Holden MD [facility] [address] [place] [address] PCP - General FAMILY PRACTICE 02/14/20 Asa Mcnamara MD [facility] [address] [place] [address] [place] [employer]al Food Service Supervisor CARDIOVASCULAR DISEASE 05/15/16
--- OUTSIDE RECORDS SUMMARY | 2024-11-12 04:46 | XMS_ITS | Encounter Summary ---
Author Organization [facility] Address [facility]6 [facility] [place] [address] [place] [address] Care Team Providers Care Linux System Engineer Name Role Phone Asa Mcnamara MD Unavailable [phone] Deisi [place] MD Primary Care Provider [phone] Encounter Details Date Type Department Care Team (Late st Contact Info) Description 07/28/2019 Orders Only [facility] at [address] [address] Suzanne Corado, A Social History Tobacco Use Types Packs/Day Years Used Date Smoking Tobacco: Every Day Cigarettes Smokeless Tobacco: Never Comments:1 pk day Alcohol Use Standard Drinks/Week Comments No 0 (1 standard drink = 0.6 oz pur e alcohol) Comments Unknown Sex and Gender Information Value Date Recorded Sex Assigned at Female 12/06/2019 3:36 PM SOLE SKIVER Legal Sex Female 5:20 PM CDT Gender Identity Female 12/06/2019 3:36 PM SOLE SKIVER Sexual Orientation Straight 12/06/2019 3: 36 PM SOLE SKIVER Occupation Industry Job Start Date Job End Date Not on file Not on file Not on file Not on file documented as of this encounter Plan of Treatment Not on file documented as of this encounter Procedures Procedure Name Priority Date/Time Associated Diagnosis Comments USV AORTA ILIAC IVC DUPLEX COMP Routine 07/24/2019 PVD (peripheral vascular disease) with claudication Other specified symptoms and signs involving the circulatory and respiratory systems USV CAROTID DUPLEX DILEEP Routine 07/24/2019 Stenosis of right carotid artery USV ART DUPLEX+KENZIE LOW DILEEP Routine 07/24/2019 PVD (peripheral vascular disease) with claudication documented in this encounter Results * USV AORTA ILIAC IVC DUPLEX COMP (07/24/2019) Anatomical Region Laterality Modality NA Vascular Ultraso und Asa Mcnamara MD [facility] VASC Final Result * USV ART DUPLEX+KENZIE LOW DILEEP (07/24/2019) Anatomical Region Laterality Modality Extremity Vascular Ultraso und Asa Mcnamara MD US VASC Final Result * USV CAROTID DUPLEX DILEEP (07/24/2019) Anatomical Region Laterality Modality Neck Vascular Ultraso und Asa Mcnamara MD VASC Final Result documented in this encounter Visit Diagnoses Diagnosis Stenosis of right carotid artery Occlusion and stenosis of carotid artery without mention of cerebral infarction PVD (peripheral vascular disease) with claudication ([facility]) Peripheral vascular disease, unspecified Other specified symptoms and signs involving the circulatory and respiratory systems documented in this encounter Care Teams Linux System Engineer Relationship Specialty Start Date End Date Deisi [place] MD [address] [place] [address] [place] [address] PCP - General FAMILY PRACTICE 06/15/17 10/14/19 Asa Mcnamara MD [facility]. [facility] [address] [place] [address] [place] Stave Block Splitter CARDIOVASCULAR DISEASE 05/15/16 documented as of this encounter
--- OUTSIDE RECORDS SUMMARY | 2024-11-12 04:46 | XMS_ITS | Encounter Summary ---
Author Organization [facility] Address [facility]6 [facility] [place] [address] [place] [address] Care Team Providers Care Confectionery Cooker Name Role Phone Asa Mcnamara MD Unavailable [phone] Neva Holden MD Primary Care Provider [phone] Encounter Details Date Type Department Care Team (Late st Contact Info) Description 07/02/2020 Orders Only [facility] at [address] [address] Karen Barboza, RN Social History Tobacco Use Types Packs/Day Years Used Date Smoking Tobacco: Every Day Cigarettes Smokeless Tobacco: Never Comments:1 pk day Alcohol Use Standard Drinks/Week Comments No 0 (1 standard drink = 0.6 oz pur e alcohol) Comments Unknown Sex and Gender Information Value Date Recorded Sex Assigned at Female 12/06/2019 3:36 PM BRAZING MACHINE FEEDER Legal Sex Female 5:20 PM CDT Gender Identity Female 12/06/2019 3:36 PM BRAZING MACHINE FEEDER Sexual Orientation Straight 12/06/2019 3: 36 PM BRAZING MACHINE FEEDER Occupation Industry Job Start Date Job End [...] on filedocumented in this encounter Care Teams Confectionery Cooker Relationship Specialty Start Date End Date Neva Holden MD [facility] [address] [place] [address] PCP - General FAMILY PRACTICE 02/14/20 Asa Mcnamara MD [facility] [address] [place] [address] [place] Smokehouse Operator CARDIOVASCULAR DISEASE 05/15/16 documented as of this encounter
--- OUTSIDE RECORDS SUMMARY | 2024-11-12 04:46 | XMS_ITS | Encounter Summary ---
Author Organization [facility] Address [facility]6 [facility]. [place], [place] [address] [place] [address] Care Team Providers Care Overnight Stocker Name Role Phone Asa Mcnamara MD Unavailable [phone] Neva Holden MD Primary Care Provider [phone] Reason for Visit * Reason Onset Date Comments Appointment Request 02/14/2020 Virtual visi t Encounter Details Date Type Department Care Team (Late st Contact Info) Description 02/14/2020 Telephone [facility] at [facility] [place] [address] Kaylee Raza PA-C [address] [facility], [address] [place] [address] Appointment Request (Virtual visit ) Social History Tobacco Use Types Packs/Day Years Used Date Smoking Tobacco: Every Day Cigarettes Smokeless Tobacco: Never Comments:1 pk day Alcohol Use Standard Drinks/Week Comments No 0 (1 standard drink = 0.6 oz pur e alcohol) Comments Unknown Sex and Gender Information Value Date Recorded Sex Assigned at Female 12/06/2019 3:36 PM LINUX SERVER ADMINISTRATOR Legal Sex Female 5:20 PM CDT Gender Identity Female 12/06/2019 3:36 PM LINUX SERVER ADMINISTRATOR Sexual Orientation Straight 12/06/2019 3: 36 PM LINUX SERVER ADMINISTRATOR Occupation Industry Job Start Date Job End Date Not on file Not on file Not on file Not on file documented as of this encounter Progress Notes * Nery Cadet - 02/14/2020 2:54 PM CDT Spoke with patient about virtual apt. Patient is unable to get apps set up on her phone. She was very frustrated and upset. She does want to be seen and requested we keep the visit in office. Apt still scheduled. I did tell her that I would look at her phone while she is here and try to help get her set up for next time. * Kaylee Raza PA-C - 02/14/2020 12:21 PM CDT Contacted patient to enroll in [employer] book for virtual visit access. Sent e-mail to patient for MyChartenrollment. Patient has upcomming appointment with Dr. Mcnamara on 02/21/2020 @ 1130AM. She would like to schedule this as a virtual visit. Please call patient to establish. Thank you. documented in this encounter Plan of Treatment Not on file documented as of this encounter Visit Diagnoses Not on filedocumented in this encounter Care Teams Overnight Stocker Relationship Specialty Start Date End Date Neva Holden MD [facility] [address] [place] [address] PCP - General FAMILY PRACTICE 02/14/20 Asa Mcnamara MD [facility]. [place] [address] [place] [address] Stephen Applications Support Specialist CARDIOVASCULAR DISEASE 05/15/16 documented as of this encounter
--- OUTSIDE RECORDS SUMMARY | 2024-11-12 04:46 | XMS_ITS | Encounter Summary ---
Author Organization [facility] - [facility] Address [address] [facility]. [place], [place] [address] [place] [address] Care Team Providers Care Roving Technician Name Role Phone Asa Mcnamara MD Unavailable [phone] Deisi Andrews MD Primary Care Provider [phone] Reason for Visit * Reason Comments Ingrown Toenail left great toe feels ingrown also left foot wart area has been burning * Consultation/Treatment (Routine) - Closed Specialty Diagnoses / Procedures Referred By Nacho brooks Referred To Contact Fish Conservationist - Foot & Ankle Surgery / PODIATRY Diagnoses wart/callus left Procedures NEW PATIENT Neva Holden MD . [facility] [address] Phone: tel: fax: Annie Jaquez, DPM [address] [place] [address] Phone: tel: fax: Referral ID Status Reason Start Date Expiration Date Visits Re quested Visits Authorized [id number] Closed 12/06/2019 12/06/2020 99 99 Encounter Details Date Type Department Care Team (Late st Contact Info) Description 01/24/2020 10:20 AM CDT Office Visit [facility] - [address] [phone] Annie Jaquez, DPM [address] [place] [address] Ingrown Toenail (left great toe feels ingrown also left foot wart area has been burning ) Social History Tobacco Use Types Packs/Day Years Used Date Smoking Tobacco: Every Day Cigarettes Smokeless Tobacco: Never Comments:1 pk day Alcohol Use Standard Drinks/Week Comments No 0 (1 standard drink = 0.6 oz pur e alcohol) Comments Unknown Sex and Gender Information Value Date Recorded Sex Assigned at Female 12/06/2019 3:36 PM BRUSH HAND Legal Sex Female 5:20 PM CDT Gender Identity Female 12/06/2019 3:36 PM BRUSH HAND Sexual Orientation Straight 12/06/2019 3: 36 PM BRUSH HAND Occupation Industry Job Start Date Job End Date Not on file Not on file Not on file Not on file documented as of this encounter Last Filed Vital Signs Vital Sign Reading Time Taken Comments Blood Pressure 126/74 01/24/2020 10:49 AM CDT Pulse - - Temperature - - Respiratory Rate - - Oxygen Saturation - - Inhaled Oxygen Concentration - - Weight 96.6 kg (213 lb) 01/24/2020 10:49 AM CDT Height 159 cm (5' 2.6 ) 01/24/2020 10:49 AM CDT Body Mass Index 38.21 01/24/2020 10:49 AM CDT documented in this encounter Progress Notes * Annie Jaquez DPM - 01/24/2020 10:20 AM CDT Podiatry Visit Form Reason for Visit: Ingrown Toenail (left great toe feels ingrown also left foot wart area has been burning ) History of Present Illness: Patient states that she still having pain underneath the ball of the left foot where the callus is located. Also she is wondering what can be done about the area where she has the excess skin growingon the left great toe where she had her skin graft performed. Medications: Current Outpatient Medications: ??? albuterol sulfate HFA (VENTOLIN HFA) 108 (90 BASE) MCG/ACT inhaler, Inhale 2 puffs into the lungs every 4 (four) hours as needed for Wheezing., Disp: , Rfl: ??? ALPRAZolam (XANAX) 1 MG tablet, Take 1 tablet (1 mg total) by mouth 3 (three) times daily as needed for Anxiety., Disp: , Rfl: ??? amlodipine 2.5 MG tablet, Take 1 tablet (2.5 mg total) by mouth every evening., Disp: 30 tablet, Rfl: 3 ??? aspirin 81 MG tablet, Take 1 tablet (81 mg total) by mouth daily., Disp: , Rfl: ? ? CHANTIX STARTING MONTH LISS 0.5 MG X 11 & 1 MG X 42 tablet, FPD UTD, Disp: , Rfl: ??? cilostazol 100 MG tablet, Take 1 tablet (100 mg total) by mouth 2 (two) times daily., Disp: 180tablet, Rfl: 1 ??? COMPRESSION STOCKINGS, 15-20 mm Hg compression knee highs 2 pairs, Disp: 2 Container, Rfl: 0 ??? cyclobenzaprine 10 MG tablet, Take 1 tablet (10 mg total) by mouth as needed for Muscle Spasms., Disp: , Rfl: ??? ezetimibe 10 MG tablet, Take 1 tablet (10 mg total) by mouth daily. Prior Auth APPROVED [id number] 01-28-2020., Disp: , Rfl: ??? famotidine 20 MG tablet, Take 20 mg by mouth 2 (two) times daily., Disp: , Rfl: ??? fexofenadine (SAMANTHA ALLERGY) 180 MG tablet, Take 1 tablet (180 mg total) by mouth daily., Disp: , Rfl: ??? Fish Oil 1000 MG Cap, Take 2,000 mg by mouth 2 (two) times daily., Disp: , Rfl: ??? fluoxetine 20 MG capsule, Take 2 capsules (40 mg total) by mouth daily., Disp: , Rfl: ??? fluoxetine 40 [...] mouth as needed., Disp: , Rfl: ??? ibuprofen 600 MG tablet, Take 600 mg by mouth 3 (three) times daily., Disp: , Rfl: ??? isosorbide mononitrate ER 30 MG 24 hr tablet, Take 1 tablet (30 mg total) by mouth daily., Disp: 90 [...] 1 tablet (25 mg total) by mouth daily., Disp: 90 tablet, Rfl: 1 ??? montelukast 10 MG [...] daily., Disp: 30 tablet, Rfl: 3 ??? predniSONE 10 mg tablet, , Disp: , Rfl: ??? rosuvastatin 40 MG tablet, Take 1 tablet (40 mg total) by mouth nightly at bedtime. Prior Auth APPROVED 12-28-18 through 12-28-2019., Disp: , Rfl: ??? trazodone 50 MG tablet, Take 1 tablet by mouth as needed., Disp: , Rfl: ??? vitamin D2, ergocalciferol, 77654 UNITS capsule, Take 50,000 Units by mouth every 7 days., Disp: , Rfl: Allergies Allergen Reactions ??? Wasp Venom Protein Anaphylaxis ??? Codeine Nausea and Vomiting ??? Haloperidol Seizure ??? Penicillins Redness ??? Resperal-Dm [Iot-Vd-Zgm-Propyl Hxqpfd-Orm-Ogosavgyb] Seizure ??? Simvastatin Other (see comment) Cant [...] vascular disease) (CMS/HCC) ??? Stroke (CMS/HCC) h/o Inspection: Porokeratotic lesion plantar fifth MTPJ left. Pain palpation. There is pain at the medial dorsal and lateral fifth MTPJ with palpation. Plantar prominent fifth metatarsal head left. The left great toe has a fleshy growth on it where she had her skin graft performed. It does appear to have excessively large papillary projections and it could also possibly be a verruca. It is slightly painful with palpation. X-ray: X-ray of the left foot does show that she has a plantar prominent fifth metatarsal head leftfoot. Diagnoses/Impression: 1. 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 Porokeratosis 3. Mass of soft tissue of foot Recommendations and Plan: Treatment options were discussed with patient today. I trim the porokeratotic lesion. She is think about having the mass on the left great toe removed because of the discomfort she has. I will see her back in 2 weeks after she decides her course of treatment. ANNIE JAQUEZ DPM documented in this encounter Plan of Treatment Not on file documented as of this encounter Results * XR FOOT STANDING LT 3V (01/24/2020 11:56 AM CDT) Anatomical Region Laterality Modality Foot Radiographic Lia ging 01/24/2020 12:3 7 PM CDT Impressions 01/24/2020 12:43 PM CDT IMPRESSION: No acute bony abnormality. Diffuse degenerative changes. Osteopenia. Interpreted By: See Trevino MD, 01/24/2020 12:37 PM Narrative 01/24/2020 12:43 PM CDT Procedure(s): XR FOOT STANDING LT 3V Date of service: 01/24/2020 11:41 AM Provided clinical information: 59 years, Female, DP, lateral, lateral oblique ?? pain fifth metatarsal Procedure and materials: 3 views Comparison studies: None. Observations: ?? Osteopenia of the foot is present. Degenerative change about the interphalangeal joint of the first digit and DIP joints of the second through fifth digits. Achilles and plantar enthesopathy is present. No ankle effusion is present. No lytic or sclerotic lesions are present involving the fifth metatarsal. Procedure Note See Trevino MD - 01/24/2020 Procedure(s): XR FOOT STANDING LT 3V Date of service: 01/24/2020 11:41 AM Provided clinical information: 59 years, Female, DP, lateral, lateral oblique pain fifth metatarsal Procedure and materials: 3 views Comparison studies: None. Observations: Osteopenia of the foot is present. Degenerative change about the interphalangeal joint of the first digit and DIP joints of the second through fifth digits. Achilles and plantar enthesopathy is present. No ankle effusion is present. No lytic or sclerotic lesions are present involving the fifth metatarsal. IMPRESSION: No acute bony abnormality. Diffuse degenerative changes. Osteopenia. 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 [facility] [address] [place] [address] [place] Supervisor Wet Room CARDIOVASCULAR DISEASE 05/15/16 documented as of this encounter
--- OUTSIDE RECORDS SUMMARY | 2024-11-12 04:46 | XMS_ITS | Encounter Summary ---
Author Organization [facility] Address [facility], [facility] [place] [address] [place] [address] Care Team Providers Care Ruling Machine Operator Name Role Phone Asa Mcnamara MD Unavailable [phone] Neva Holden MD Primary Care Provider [phone] Reason for Visit * Reason Onset Date Comments Lab Results 07/03/2020 Encounter Details Date Type Department Care Team (Late st Contact Info) Description 07/03/2020 Telephone [facility] at [address] [address] Katt Walter RN Lab Results Social History Tobacco Use Types Packs/Day Years Used Date Smoking Tobacco: Every Day Cigarettes Smokeless Tobacco: Never Comments:1 pk day Alcohol Use Standard Drinks/Week Comments No 0 (1 standard drink = 0.6 oz pur e alcohol) Comments Unknown Sex and Gender Information Value Date Recorded Sex Assigned at Female 12/06/2019 3:36 PM NIGHT MANAGER Legal Sex Female 5:20 PM CDT Gender Identity Female 12/06/2019 3:36 PM NIGHT MANAGER Sexual Orientation Straight 12/06/2019 3: 36 PM NIGHT MANAGER Occupation Industry Job Start Date Job End Date Not on file Not on file Not on file Not on file COVID-19 Exposure Response Date Recorded In the last month, have you been in contact with someone who was confirmed or suspected to have Coronavirus / COVID-19? Unable to assess 06/14/2020 2:13 PM CDT documented as of this encounter Progress Notes * Katt Walter RN - 07/03/2020 1:45 PM CDT Labs reviewed. No acute concerns. Continue plan as discussed on 07/01. Above message from Kaylee GARCIA. I informed the patient of the above information. The patient verbalized understanding and had no further questions. documented in this encounter Plan of Treatment Not on file documented as of this encounter Visit Diagnoses Not on filedocumented in this encounter Care Teams Ruling Machine Operator Relationship Specialty Start Date End Date Neva Holden MD [facility] [address] [place] [address] PCP - General FAMILY PRACTICE 02/14/20 Asa Mcnamara MD [facility] [address] [place] [address] [place] Balance Staff Staker CARDIOVASCULAR DISEASE 05/15/16 documented as of this encounter
--- OUTSIDE RECORDS SUMMARY | 2024-11-12 04:46 | XMS_ITS | Encounter Summary ---
Author Organization [facility] Address [address] [facility]. [place], [place] [address] [place] [address] Care Team Providers Care Social Media Project Manager Name Role Phone Asa Mcnamara MD Unavailable [phone] Neva Holden MD Primary Care Provider [phone] Encounter Details Date Type Department Care Team (Latest Contact Info) Description 02/22/2020 Travel Social History Tobacco Use Types Packs/Day Years Used Date Smoking Tobacco: Every Day Cigarettes Smokeless Tobacco: Never Comments:1 pk day Alcohol Use Standard Drinks/Week Comments No 0 (1 standard drink = 0.6 oz pur e alcohol) Comments Unknown Sex and Gender Information Value Date Recorded Sex Assigned at Female 12/06/2019 3:36 PM MARKETING MANAGER HEALTH COMMUNICATIONS Legal Sex Female 5:20 PM CDT Gender Identity Female 12/06/2019 3:36 PM MARKETING MANAGER HEALTH COMMUNICATIONS Sexual Orientation Straight 12/06/2019 3: 36 PM MARKETING MANAGER HEALTH COMMUNICATIONS Occupation Industry Job Start Date Job End [...] on filedocumented in this encounter Care Teams Social Media Project Manager Relationship Specialty Start Date End Date Neva Holden MD [facility] [address] [place] [address] PCP - General FAMILY PRACTICE 02/14/20 Asa Mcnamara MD [facility] [address] [place] [address] [place] Broadcast Director Operations CARDIOVASCULAR DISEASE 05/15/16 documented as of this encounter
--- OUTSIDE RECORDS SUMMARY | 2024-11-12 04:46 | XMS_ITS | Encounter Summary ---
Author Organization [facility] Address [address] [facility] [place] [address] [place] [address] Care Team Providers Care Raker Buffing Wheel Name Role Phone Asa Mcnamara MD Unavailable [phone] Deisi Andrews MD Primary Care Provider [phone] Reason for Referral * Imaging (Routine) - Closed Specialty Diagnoses / Procedures Referred By Nacho brooks Referred To Contact RADIOLOGY Diagnoses PVD (peripheral vascular disease) with claudication ([facility]/HCC) Procedures USV ART REST W KENZIE LOW EXT Asa Mcnamara MD [facility]. [facility] [address] [place] [address] Phone: tel: fax: Referral ID Status Reason Start Date Expiration Date Visits Re quested Visits Authorized [id number] Closed 01/05/2020 02/02/2021 1 1 UNT PROCESSOR Encounter Details Date Type Department Care Team (Late st Contact Info) Description 01/05/2020 Orders Only [facility] [address] [place] [address] Asa Mcnamara MD [facility]. [facility] [address] [place] [address] Social History Tobacco Use Types Packs/Day Years Used Date Smoking Tobacco: Every Day Cigarettes Smokeless Tobacco: Never Comments:1 pk day Alcohol Use Standard Drinks/Week Comments No 0 (1 standard drink = 0.6 oz pur e alcohol) Comments Unknown Sex and Gender Information Value Date Recorded Sex Assigned at Female 12/06/2019 3:36 PM ACCOUNT PROCESSOR Legal Sex Female 5:20 PM CDT Gender Identity Female 12/06/2019 3:36 PM ACCOUNT PROCESSOR Sexual Orientation Straight 12/06/2019 3: 36 PM ACCOUNT PROCESSOR Occupation Industry Job Start Date Job End Date Not on file Not on file Not on file Not on file documented as of this encounter Plan of Treatment Not on file documented as of this encounter Results * USV ART REST W KENZIE LOW EXT (01/26/2020) Anatomical Region Laterality Modality Extremity Vascular Ultraso und Asa Mcnamara MD VASC Final Result documented in this encounter Visit Diagnoses Diagnosis PVD (peripheral vascular disease) with claudication ([facility])- Primary Peripheral vascular disease, unspecified Other specified symptoms and signs involving the circulatory and respiratory systems Precordial chest pain Precordial pain documented in this encounter Care Teams Raker Buffing Wheel Relationship Specialty Start Date End Date Deisi Andrews MD [address] [place] [address] [place] [address] PCP - General FAMILY PRACTICE 12/06/19 02/13/20 Asa Mcnamara MD [facility]. [facility] [address] [place] [address] [place] Fusing Machine Feeder CARDIOVASCULAR DISEASE 05/15/16 documented as of this encounter
--- OUTSIDE RECORDS SUMMARY | 2024-11-12 04:46 | XMS_ITS | Encounter Summary ---
Author Organization [facility] Address [facility] [place] [address] [place] [address] Care Team Providers Care Moisture Conditioner Operator Name Role Phone Asa Mcnamara MD Unavailable [phone] Neva Holden MD Primary Care Provider [phone] Reason for Visit * Reason Onset Date Comments Refill Request 08/19/2020 zetia and imdur Encounter Details Date Type Department Care Team (Late st Contact Info) Description 08/19/2020 Telephone [facility] at [facility], [facility] [address] [place] [address] Asa Mcnamara MD [facility]. [facility] [address] [place] [address] Refill Request (zetia and imdur) Social History Tobacco Use Types Packs/Day Years Used Date Smoking Tobacco: Every Day Cigarettes Smokeless Tobacco: Never Comments:1 pk day Alcohol Use Standard Drinks/Week Comments No 0 (1 standard drink = 0.6 oz pur e alcohol) Comments Unknown Sex and Gender Information Value Date Recorded Sex Assigned at Female 12/06/2019 3:36 PM RV DETAILER Legal Sex Female 5:20 PM CDT Gender Identity Female 12/06/2019 3:36 PM RV DETAILER Sexual Orientation Straight 12/06/2019 3: 36 PM RV DETAILER Occupation Industry Job Start Date Job End Date Not on file Not on file Not on file Not on file documented as of this encounter Plan of Treatment Not on file documented as of this encounter Visit Diagnoses Not on filedocumented in this encounter Care Teams Moisture Conditioner Operator Relationship Specialty Start Date End Date Neva Holden MD . [facility] [address] [place] [address] PCP - General FAMILY PRACTICE 02/14/20 Asa Mcnamara MD [facility]. [facility] [address] [place] [address] [place] Replanting Machine Operator CARDIOVASCULAR DISEASE 05/15/16 documented as of this encounter
--- OUTSIDE RECORDS SUMMARY | 2024-11-12 04:46 | XMS_ITS | Encounter Summary ---
Author Organization [facility] Address [facility] [facility] [place] [address] [place] [address] Care Team Providers Care Pre Billing Specialist Name Role Phone Asa Mcnamara MD Unavailable [phone] Deisi Andrews MD Primary Care Provider [phone] Encounter Details Date Type Department Care Team (Late st Contact Info) Description 02/16/2019 Scan [facility] at [address] [address] Scanned, Documents Social History Tobacco Use Types Packs/Day Years Used Date Smoking Tobacco: Every Day Cigarettes Smokeless Tobacco: Never Comments:1 pk day Alcohol Use Standard Drinks/Week Comments No 0 (1 standard drink = 0.6 oz pur e alcohol) Comments Unknown Sex and Gender Information Value Date Recorded Sex Assigned at Female 12/06/2019 3:36 PM ESCROW PROCESSOR Legal Sex Female 5:20 PM CDT Gender Identity Female 12/06/2019 3:36 PM ESCROW PROCESSOR Sexual Orientation Straight 12/06/2019 3: 36 PM ESCROW PROCESSOR Occupation Industry Job Start Date Job End Date Not on file Not on file Not on file Not on file documented as of this encounter Plan of Treatment Not on file documented as of this encounter Visit Diagnoses Not on filedocumented in this encounter Care Teams Pre Billing Specialist Relationship Specialty Start Date End Date Deisi Andrews MD [address] [place] [address] [place] [address] PCP - General FAMILY PRACTICE 06/15/17 10/14/19 Asa Mcnamara MD [facility]. [facility] [address] [place] [address] Stephen Microcomputer Technician CARDIOVASCULAR DISEASE 05/15/16 documented as of this encounter
--- OUTSIDE RECORDS SUMMARY | 2024-11-12 04:46 | XMS_ITS | Encounter Summary ---
Author Organization [facility] - [facility] Address [address] [facility]. [place], [place] [address] [place] [address] Care Team Providers Care Synthetic Chemist Name Role Phone Asa Mcnamara MD Unavailable [phone] Deisi Andrews MD Primary Care Provider [phone] Encounter Details Date Type Department Care Team (Latest Contact Info) Description 01/24/2020 Travel Social History Tobacco Use Types Packs/Day Years Used Date Smoking Tobacco: Every Day Cigarettes Smokeless Tobacco: Never Comments:1 pk day Alcohol Use Standard Drinks/Week Comments No 0 (1 standard drink = 0.6 oz pur e alcohol) Comments Unknown Sex and Gender Information Value Date Recorded Sex Assigned at Female 12/06/2019 3:36 PM ACID WASH OPERATOR Legal Sex Female 5:20 PM CDT Gender Identity Female 12/06/2019 3:36 PM ACID WASH OPERATOR Sexual Orientation Straight 12/06/2019 3: 36 PM ACID WASH OPERATOR Occupation Industry Job Start Date Job End Date Not on file Not on file Not on file Not on file documented as of this encounter Plan of Treatment Not on file documented as of this encounter Visit Diagnoses Not on filedocumented in this encounter Care Teams Synthetic Chemist Relationship Specialty Start Date End Date Deisi Andrews MD [address] [place], [place] [address] [address] PCP - General FAMILY PRACTICE 12/06/19 02/13/20 Asa Mcnamara MD [facility]. [facility] [address] [place] [address] [place] Rail Transportation Operator CARDIOVASCULAR DISEASE 05/15/16 documented as of this encounter
--- OUTSIDE RECORDS SUMMARY | 2024-11-12 04:46 | XMS_ITS | Encounter Summary ---
Author Organization [facility] Address [address] [facility] [place] [address] [place] [address] Care Team Providers Care Undercollar Baster Name Role Phone Asa Mcnamara MD Unavailable [phone] Neva Holden MD Primary Care Provider [phone] Reason for Referral * Imaging (Routine) - Closed Specialty Diagnoses / Procedures Referred By Contac t Referred To Contact RADIOLOGY Diagnoses PVD (peripheral vascular disease) with claudication (CMS/HCC) Procedures USV ART REST W KENZIE LOW EXT Asa Mcnamara MD [facility]. [facility] [address] [place] [address] Phone: tel: fax: [facility] [address] [place] [address] Phone: tel: Referral ID Status Reason Start Date Expiration Date Visits Re quested Visits Authorized [id number] Closed 06/17/2020 07/18/2021 1 1 Encounter Details Date Type Department Care Team (Late st Contact Info) Description 06/17/2020 Orders Only [facility], [facility] [address] [place] [address] Asa Mcnamara MD [facility]. [facility] [address] [place] [address] Social History Tobacco Use Types Packs/Day Years Used Date Smoking Tobacco: Every Day Cigarettes Smokeless Tobacco: Never Comments:1 pk day Alcohol Use Standard Drinks/Week Comments No 0 (1 standard drink = 0.6 oz pur e alcohol) Comments Unknown Sex and Gender Information Value Date Recorded Sex Assigned at Female 12/06/2019 3:36 PM BAKER APPRENTICE Legal Sex Female 5:20 PM CDT Gender Identity Female 12/06/2019 3:36 PM BAKER APPRENTICE Sexual Orientation Straight 12/06/2019 3: 36 PM BAKER APPRENTICE Occupation Industry Job Start Date Job End [...] USV ART REST W KENZIE LOW EXT (07/10/2020) Anatomical Region Laterality Modality Extremity Vascular Ultraso und Asa Mcnamara MD VAS Final Result documented in this encounter Visit Diagnoses Diagnosis PVD (peripheral vascular disease) with claudication (CMS/HCC)- Primary Peripheral vascular disease, unspecified Other specified symptoms and signs involving the circulatory and respiratory systems Essential hypertension Unspecified essential hypertension Mixed hyperlipidemia documented in this encounter Care Teams Undercollar Baster Relationship Specialty Start Date End Date Neva Holden MD [facility] [address] [address] PCP - General FAMILY PRACTICE 02/14/20 Asa Mcnamara MD [facility]. [facility] [address] [place] [address] [place] Studio Data Analyst CARDIOVASCULAR DISEASE 05/15/16 documented as of this encounter
--- OUTSIDE RECORDS SUMMARY | 2024-11-12 04:46 | XMS_ITS | Encounter Summary ---
Author Organization [facility] Address [facility]6 [facility]. [place], [place] [address] [place] [address] Care Team Providers Care Hydropress Operator Name Role Phone Asa Mcnamara MD Unavailable [phone] Deisi Andrews MD Primary Care Provider [phone] Reason for Visit * Reason Onset Date Comments Lab Results 12/27/2018 Encounter Details Date Type Department Care Team (Late st Contact Info) Description 12/27/2018 Telephone [facility] at [place] [id number] Karen Barboza teacher theater arts Results Social History Tobacco Use Types Packs/Day Years Used Date Smoking Tobacco: Every Day Cigarettes Smokeless Tobacco: Never Comments:1 pk day Alcohol Use Standard Drinks/Week Comments No 0 (1 standard drink = 0.6 oz pur e alcohol) Comments Unknown Sex and Gender Information Value Date Recorded Sex Assigned at Female 12/06/2019 3:36 PM OWNER OPERATOR TANKER TRUCK DRIVER Legal Sex Female 5:20 PM CDT Gender Identity Female 12/06/2019 3:36 PM OWNER OPERATOR TANKER TRUCK DRIVER Sexual Orientation Straight 12/06/2019 3: 36 PM OWNER OPERATOR TANKER TRUCK DRIVER Occupation Industry Job Start Date Job End Date Not on file Not on file Not on file Not on file documented as of this encounter Progress Notes * Karen Barboza RN - 12/27/2018 8:37 AM CST Increase rosuvastatin to 20 mg daily, LDL not at goal. BMP is stable. Pt notified of the above per Hari-AIRLINE PILOT/FIRST OFFICER, will send Rx, also went over lipid results with pt as well, pt verbalizes understanding and has no further questions. Rx sent. Rosy Barboza R.N. R OPERATOR TANKER TRUCK DRIVER R OPERATOR TANKER TRUCK DRIVER documented in this encounter Plan of Treatment Not on file documented as of this encounter Visit Diagnoses Not on filedocumented in this encounter Care Teams Hydropress Operator Relationship Specialty Start Date End Date Deisi Andrews MD [address] [place] [address] [place] [address] PCP - General FAMILY PRACTICE 06/15/17 10/14/19 Asa Mcnamara MD [facility]. [facility] [address] [place] [address] [place] Staff Nurse CARDIOVASCULAR DISEASE 05/15/16 documented as of this encounter
--- OUTSIDE RECORDS SUMMARY | 2024-11-12 04:46 | XMS_ITS | Encounter Summary ---
Author Organization [facility] Address [address] [facility]. [place], [place] [address] [place] [address] Care Team Providers Care Jtac Name Role Phone Asa Mcnamara MD Unavailable [phone] Deisi Andrews MD Primary Care Provider [phone] Reason for Visit * Reason Comments New Patient right foot painful c allus for 3 months * Consultation/Treatment (Routine) - Closed Specialty Diagnoses / Procedures Referred By Nacho t Referred To Contact Digital Photographer - Foot & Ankle Surgery / PODIATRY Diagnoses wart/callus left Procedures NEW PATIENT Neva Holden MD . [facility] [address] Phone: tel: fax: Annie Jaquez DPM [address] [place] [address] Phone: tel: fax: Referral ID Status Reason Start Date Expiration Date Visits Re quested Visits Authorized [id number] Closed 12/06/2019 12/06/2020 99 99 Encounter Details Date Type Department Care Team (Late st Contact Info) Description 12/06/2019 3:20 PM TURNING MACHINE SET UP OPERATOR Office Visit [facility] - [address] [address] Annie Jaquez DPM [address] [place] [phone] New Patient (right foot painful callus for 3 months ) Social History Tobacco Use Types Packs/Day Years Used Date Smoking Tobacco: Every Day Cigarettes Smokeless Tobacco: Never Comments:1 pk day Alcohol Use Standard Drinks/Week Comments No 0 (1 standard drink = 0.6 oz pur e alcohol) Comments Unknown Sex and Gender Information Value Date Recorded Sex Assigned at Female 12/06/2019 3:36 PM TURNING MACHINE SET UP OPERATOR Legal Sex Female 5:20 PM CDT Gender Identity Female 12/06/2019 3:36 PM TURNING MACHINE SET UP OPERATOR Sexual Orientation Straight 12/06/2019 3: 36 PM TURNING MACHINE SET UP OPERATOR Occupation Industry Job Start Date Job End Date Not on file Not on file Not on file Not on file documented as of this encounter Last Filed Vital Signs Vital Sign Reading Time Taken Comments Blood Pressure 138/76 12/06/2019 3:33 PM TURNING MACHINE SET UP OPERATOR Pulse - - Temperature - - Respiratory Rate - - Oxygen Saturation - - Inhaled Oxygen Concentration - - Weight 98.7 kg (217 lb 8 oz) 12/06/2019 3:33 PM TURNING MACHINE SET UP OPERATOR Height 160 cm (5' 3 ) 12/06/2019 3:33 PM TURNING MACHINE SET UP OPERATOR Body Mass Index 38.53 12/06/2019 3:33 PM TURNING MACHINE SET UP OPERATOR documented in this encounter Progress Notes * Annie Jaquez, WILFREDO - 12/06/2019 3:20 PM CST Podiatry Visit Form Reason for Visit: New Patient (right foot painful callus for 3 months ) History of Present Illness: Patient states that she has a painful area medial ball of the left foot in the left great toenail still ingrown and tender. She also has a large fleshy soft tissue mass on the plantar aspect left hallux is about 1 x 1 cm that does protrude. She states this is from when she had plastic surgery on her toe. ROS: Constitutional:Normal. Cardiovascular:Normal. Respiratory:Normal. Gastrointestinal:Normal. Musculoskeletal: Toe pain, foot pain Integumentary: Ingrown toenail, toenail discoloration, toenail thickening Genitourinary: Normal Neurological: Normal Psychiatric: Anxiety, depression Medications: Current Outpatient Medications: ??? albuterol sulfate [...] by mouth daily., Disp: , Rfl: ??? CILOSTAZOL 100 MG tablet, TAKE 1 TABLET BY MOUTH TWICE DAILY, Disp: 180 tablet, Rfl: 1 ??? COMPRESSION STOCKINGS, 15-20 mm Hg compression knee highs 2 pairs, Disp: 2 Container, Rfl: 0 ??? cyclobenzaprine 10 MG tablet, Take 1 tablet (10 mg total) by mouth as needed for Muscle Spasms., Disp: , Rfl: ??? ezetimibe 10 MG tablet, Take 1 tablet (10 mg total) by mouth daily. Prior Auth APPROVED [id number] 01-28-2020., Disp: , Rfl: ??? fexofenadine (SAMANTHA ALLERGY) 180 MG tablet, Take 1 tablet (180 mg total) by mouth daily., Disp: , Rfl: ??? Fish Oil 1000 MG Cap, Take 2,000 mg by mouth 2 (two) times daily., Disp: , Rfl: ??? fluoxetine 20 MG capsule, Take 2 capsules (40 mg total) by mouth daily., Disp: , Rfl: ??? furosemide 40 MG tablet, Take 1 tablet (40 mg total) by mouth daily., Disp: 30 tablet, Rfl: 3 ??? hydrocodone-acetaminophen 10-325 MG tablet, Take 1-2 tablets by mouth as needed., Disp: , Rfl: ??? isosorbide mononitrate ER 30 MG 24 hr tablet, Take 1 tablet (30 mg total) by mouth daily., Disp: 30 tablet, Rfl: 3 ??? losartan 100 MG tablet, Take 1 tablet (100 mg total) by mouth daily., Disp: 30 tablet, Rfl: 3 ??? metFORMIN 500 MG tablet, Take 1 tablet (500 mg total) by mouth 2 (two) times daily. Resume on , 12/09/17, Disp: 60 tablet, Rfl: 3 ??? METOPROLOL SUCCINATE 25 MG 24 hr tablet, TAKE 1 TABLET BY MOUTH ONCE DAILY, Disp: 90 tablet, Rfl: 1 ??? montelukast [...] 911.)., Disp: 25 tablet, Rfl: 1 ??? potassium chloride CR 20 MEQ tablet, Take 1 tablet (20 mEq total) by mouth daily., Disp: 30 tablet, Rfl: 3 ??? rosuvastatin 40 MG tablet, Take 1 tablet (40 mg total) by mouth nightly at bedtime. Prior Auth APPROVED 12-28-18 through 12-28-2019., Disp: , Rfl: ??? trazodone 50 MG tablet, Take 1 tablet by mouth as needed., Disp: , Rfl: Allergies Allergen Reactions ??? Wasp Venom Protein Anaphylaxis ??? Codeine Nausea and Vomiting ??? Haloperidol Seizure ??? Penicillins Redness ??? Resperal-Dm [Opo-Ai-Ntk-Propyl Hkyyio-Csn-Cqryqtslx] Seizure ??? Simvastatin Other (see comment) Cant [...] file Gets together: Not on file Attends sikhism service: Not on file Active member of [...] ??? Dementia Sister ??? Thyroid Sister Erinn Constitutional: No distress Psych: Mood & Effect: Oriented To: person, place, time Vascular: DP PT 1/4 bilateral Musculoskeletal: Dorsiflexors, plantar flexors, inverters and everters to both lower extremities 5/5 bilateral and symmetrical. Range of Motion: Normal subtalar, ankle, midtarsal and metatarsophalangeal joint range of motion. Gait/Station: Antalgic left Dermatologic Inspection: Porokeratotic lesion plantar fifth MTPJ left foot. Again she has a soft tissue/mass protruding from the plantar medial left hallux from her previous left tissue plastic surgery. It has not changed in several years. No discoloration. Normal skin turgor, normal hair growth. Nails: Hallux nail bilateral hypertrophic discolored and the medial left great toenail is ingrown and tender Neurologic: Sharp, dull sensations are intact bilateral. DTRs are normal bilateral and symmetrical.Normal plantar response. Diagnoses/Impression: 1. Ingrowing toenail 2. Porokeratosis 3. Mass of soft tissue of foot Recommendations and Plan: Pathology treatment options were discussed. I debrided the porokeratotic lesion. Clipped at the ingrown portion of the great toenail. Follow-up as needed ANNIE JAQUEZ ING MACHINE SET UP OPERATOR documented in this encounter Plan of Treatment Not on file documented as of this encounter Visit Diagnoses Diagnosis Ingrowing toenail- Primary Ingrowing nail Porokeratosis Other specified congenital anomaly of skin Mass of soft tissue of foot documented in this encounter Care Teams Jtac Relationship Specialty Start Date End Date Deisi Andrews MD [address] [place] [address] [place] [address] PCP - General FAMILY PRACTICE 12/06/19 02/13/20 Asa Mcnamara MD [facility] [address] [place] [address] Stephen Open Pit Quarry Supervisor CARDIOVASCULAR DISEASE 05/15/16 documented as of this encounter
--- OUTSIDE RECORDS SUMMARY | 2024-11-12 04:46 | XMS_ITS | Encounter Summary ---
Author Organization [facility] Address [facility] [place] [address] [place] [address] Care Team Providers Care Pickle Processor Name Role Phone Asa Mcnamara MD Unavailable [phone] Deisi Andrews MD Primary Care Provider [phone] Reason for Visit * Reason Onset Date Comments Other 02/01/2019 Encounter Details Date Type Department Care Team (Late st Contact Info) Description 02/01/2019 Telephone [facility] at [facility], [facility] [address] [place] [address] Asa Mcnamara MD [facility]. [facility] [address] [place] [address] Other Social History Tobacco Use Types Packs/Day Years Used Date Smoking Tobacco: Every Day Cigarettes Smokeless Tobacco: Never Comments:1 pk day Alcohol Use Standard Drinks/Week Comments No 0 (1 standard drink = 0.6 oz pur e alcohol) Comments Unknown Sex and Gender Information Value Date Recorded Sex Assigned at Female 12/06/2019 3:36 PM DIETITIAN TEACHER Legal Sex Female 5:20 PM CDT Gender Identity Female 12/06/2019 3:36 PM DIETITIAN TEACHER Sexual Orientation Straight 12/06/2019 3: 36 PM DIETITIAN TEACHER Occupation Industry Job Start Date Job End Date Not on file Not on file Not on file Not on file documented as of this encounter Plan of Treatment Not on file documented as of this encounter Visit Diagnoses Not on filedocumented in this encounter Care Teams Pickle Processor Relationship Specialty Start Date End Date Deisi Andrews MD [address] [place] [address] [place] [address] PCP - General FAMILY PRACTICE 06/15/17 10/14/19 Asa Mcnamara MD [facility]. [facility] [address] [place] [address] [place] Boring Inspector CARDIOVASCULAR DISEASE 05/15/16 documented as of this encounter
--- OUTSIDE RECORDS SUMMARY | 2024-11-12 04:46 | XMS_ITS | Encounter Summary ---
Author Organization [facility] Address [facility] hospital6 [place] [address] [place] [address] Care Team Providers Care Law Firm Partner Name Role Phone Asa Mcnamara MD Unavailable [phone] Neva Holden MD Primary Care Provider [phone] Reason for Visit * Reason Onset Date Comments Schedule Test 06/17/2020 Encounter Details Date Type Department Care Team (Late st Contact Info) Description 06/17/2020 Telephone [facility] at [facility], [facility] [address] [place] [address] Asa Mcnamara MD [facility]. [facility] [address] [place] [address] Schedule Test Social History Tobacco Use Types Packs/Day Years Used Date Smoking Tobacco: Every Day Cigarettes Smokeless Tobacco: Never Comments:1 pk day Alcohol Use Standard Drinks/Week Comments No 0 (1 standard drink = 0.6 oz pur e alcohol) Comments Unknown Sex and Gender Information Value Date Recorded Sex Assigned at Female 12/06/2019 3:36 PM CONTROL SYSTEM COMPUTER SCIENTIST Legal Sex Female 5:20 PM CDT Gender Identity Female 12/06/2019 3:36 PM CONTROL SYSTEM COMPUTER SCIENTIST Sexual Orientation Straight 12/06/2019 3: 36 PM CONTROL SYSTEM COMPUTER SCIENTIST Occupation Industry Job Start Date Job End [...] encounter Progress Notes * Nery Cadet - 06/17/2020 11:19 AM CDT Aortoiliac and KENZIE's scheduled at [facility] for 07-12-20. Spoke with patient. Date, time and instructions given and mailed. Orders faxed to [facility] at [phone] documented in this encounter Plan of Treatment Not on file documented as of this encounter Visit Diagnoses Not on filedocumented in this encounter Care Teams Law Firm Partner Relationship Specialty Start Date End Date Neva Holden MD [facility] [address] [place] [address] PCP - General FAMILY PRACTICE 02/14/20 Asa Mcnamara MD [facility]. [facility] [address] [place] [address] Stephen Tool/Die Maker CARDIOVASCULAR DISEASE 05/15/16 documented as of this encounter
--- OUTSIDE RECORDS SUMMARY | 2024-11-12 04:46 | XMS_ITS | Patient Health Record ---
Author Organization [facility] Address [address] [place] [address] Care Team Providers Care Mold Puller Name Role Phone Earl Bhandari Unavailable [phone] REASON FOR REFERRAL No Information PLAN OF TREATMENT No Information Insurance Providers Payer Name Payer Address Payer Phone Subscriber Number Group Number Insured Name Patient Relationship to Insured Coverage Start Date Coverage End Date [facility] [address] [place] [phone] [id number] Rody Zaidi Self - patient is the insured
--- OUTSIDE RECORDS SUMMARY | 2024-11-12 04:46 | XMS_ITS | Encounter Summary ---
Author Organization [facility] Address [address] [facility] [place] [address] [place] [address] Care Team Providers Care Stationary Boiler Fireman Name Role Phone Asa Mcnamara MD Unavailable [phone] Deisi Andrews MD Primary Care Provider [phone] Reason for Referral * Imaging (Routine) - Closed Specialty Diagnoses / Procedures Referred By Nacho brooks Referred To Contact RADIOLOGY Diagnoses PVD (peripheral vascular disease) with claudication (CMS/HCC) Procedures USV ART DUPLEX+KENZIE LOW DILEEP Asa Mcnamara MD [facility]. [facility] [address] [place] [address] Phone: tel: fax: [address] [place] [address] Phone: tel: fax: Referral ID Status Reason Start Date Expiration Date Visits Re quested Visits Authorized [id number] Closed 07/18/2019 08/23/2019 1 1 Encounter Details Date Type Department Care Team (Late st Contact Info) Description 07/18/2019 Orders Only [facility] [address] [place] [address] Asa Mcnamara MD [facility]. [facility] [address] [place] [address] Social History Tobacco Use Types Packs/Day Years Used Date Smoking Tobacco: Every Day Cigarettes Smokeless Tobacco: Never Comments:1 pk day Alcohol Use Standard Drinks/Week Comments No 0 (1 standard drink = 0.6 oz pur e alcohol) Comments Unknown Sex and Gender Information Value Date Recorded Sex Assigned at Female 12/06/2019 3:36 PM RECREATION SUPERVISOR Legal Sex Female 5:20 PM CDT Gender Identity Female 12/06/2019 3:36 PM RECREATION SUPERVISOR Sexual Orientation Straight 12/06/2019 3: 36 PM RECREATION SUPERVISOR Occupation Industry Job Start Date Job End Date Not on file Not on file Not on file Not on file documented as of this encounter Plan of Treatment Not on file documented as of this encounter Results * USV ART DUPLEX+KENZIE LOW DILEEP (07/24/2019) Anatomical Region Laterality Modality Extremity Vascular Ultraso und Asa Mcnamara MD VASC Final Result documented in this encounter Visit Diagnoses Diagnosis PVD (peripheral vascular disease) with claudication ([facility])- Primary Peripheral vascular disease, unspecified Other specified symptoms and signs involving the circulatory and respiratory systems Stenosis of carotid artery, unspecified laterality documented in this encounter Care Teams Stationary Boiler Fireman Relationship Specialty Start Date End Date Deisi Andrews MD [address] [place] [address] [place] [address] PCP - General FAMILY PRACTICE 06/15/17 10/14/19 Asa Mcnamara MD [facility]. [facility] [address] [place], [place] [address] [place] Calender Inspector CARDIOVASCULAR DISEASE 05/15/16 documented as of this encounter
--- OUTSIDE RECORDS SUMMARY | 2024-11-12 04:46 | XMS_ITS | Encounter Summary ---
Author Organization [facility] Address [address] [place] [address] [place] [address] Care Team Providers Care Advanced Practice Nurse Psychotherapist Name Role Phone Asa Mcnamara MD Unavailable [phone] Deisi Andrews MD Primary Care Provider [phone] Reason for Visit * Reason Onset Date Comments Prior Authorization 12/28/2018 [place] Rupali or Auth for Rosuvastatin 20mg has been APPROVED from 12-28-18 through 12-28-2019. Encounter Details Date Type Department Care Team (Late st Contact Info) Description 12/28/2018 Telephone [facility] at [facility] [address] [place] [address] Asa Mcnamara MD [facility]. [facility] [address] [place], [place] [id number] Prior Authorization ([place] Prior Auth for Rosuvastatin 20mg has been APPROVED from 12-28-18 through 12-28-2019.) Social History Tobacco Use Types Packs/Day Years Used Date Smoking Tobacco: Every Day Cigarettes Smokeless Tobacco: Never Comments:1 pk day Alcohol Use Standard Drinks/Week Comments No 0 (1 standard drink = 0.6 oz pur e alcohol) Comments Unknown Sex and Gender Information Value Date Recorded Sex Assigned at Female 12/06/2019 3:36 PM CAREER SERVICES MANAGER Legal Sex Female 5:20 PM CDT Gender Identity Female 12/06/2019 3:36 PM CAREER SERVICES MANAGER Sexual Orientation Straight 12/06/2019 3: 36 PM CAREER SERVICES MANAGER Occupation Industry Job Start Date Job End Date Not on file Not on file Not on file Not on file documented as of this encounter Progress Notes * JOSE Estrada - 12/28/2018 11:54 AM CST [place] Prior Auth for Rosuvastatin 20mg has been APPROVED from 12-28-18 through 12-28-2019. ER SERVICES MANAGER documented in this encounter Plan of Treatment Not on file documented as of this encounter Visit Diagnoses Not on filedocumented in this encounter Care Teams Advanced Practice Nurse Psychotherapist Relationship Specialty Start Date End Date Deisi Andrews MD [address] [place] [address] [place] [address] PCP - General FAMILY PRACTICE 06/15/17 10/14/19 Asa Mcnamara MD [facility]. [facility] [address] [place] [address] [facility] Personnel Director CARDIOVASCULAR DISEASE 05/15/16 documented as of this encounter
--- OUTSIDE RECORDS SUMMARY | 2024-11-12 04:46 | XMS_ITS | Encounter Summary ---
Author Organization [facility] Address [facility] [place] [address] [place] [address] Care Team Providers Care Scallop Cutter Machine Name Role Phone Asa Mcnamara MD Unavailable [phone] Neva Holden MD Primary Care Provider [phone] Reason for Visit * Reason Onset Date Comments Musculoskeletal Problem 06/17/2020 Encounter Details Date Type Department Care Team (Latest Contact Info) Description 06/17/2020 Telephone [facility] at [address] [address] Karen Barboza RN Musculoskeletal Problem Social History Tobacco Use Types Packs/Day Years Used Date Smoking Tobacco: Every Day Cigarettes Smokeless Tobacco: Never Comments:1 pk day Alcohol Use Standard Drinks/Week Comments No 0 (1 standard drink = 0.6 oz pur e alcohol) Comments Unknown Sex and Gender Information Value Date Recorded Sex Assigned at Female 12/06/2019 3:36 PM CHILD PSYCHIATRIST Legal Sex Female 5:20 PM CDT Gender Identity Female 12/06/2019 3:36 PM CHILD PSYCHIATRIST Sexual Orientation Straight 12/06/2019 3: 36 PM CHILD PSYCHIATRIST Occupation Industry Job Start Date Job End Date Not on file Not on file Not on file Not on file COVID-19 Exposure Response Date Recorded In the last month, have you been in contact with someone who was confirmed or suspected to have Coronavirus / COVID-19? Unable to assess 06/14/2020 2:13 PM CDT documented as of this encounter Progress Notes * Kaylee Raza PA-C - 07/01/2020 3:09 PM CDT Discussed above with patient. Continues to have BLE myalgias. Has history of PVD. She is having vascular studies next week at [facility]. Advised to continue to hold crestor for now. Will request most recent labs from PCP. Will call back in a few weeks for follow up in regards to sx and with vascular results. Patient voiced understanding. * Karen Barboza RN - 06/17/2020 11:21 AM CDT Pt called to report that she believes crestor is causing myalgias to legs. Advised pt to hold crestor for about 2 weeks, then call our office with update, pt verbalizes understanding and has no further questions. Rosy Barboza R.N. 07/01/20 Called pt to f/u on the above, pt states that she remains off of crestor, states myalgias to legs are better, calves are still sore but feel better, states had the same problem with simvastatin in the past, but states was on pravastatin in the past as well and tolerated that without any problems. Message to Maxine Barboza R.N. documented in this encounter Plan of Treatment Not on file documented as of this encounter Visit Diagnoses Not on filedocumented in this encounter Care Teams Scallop Cutter Machine Relationship Specialty Start Date End Date Neva Holden MD [facility] [place] [address] PCP - General FAMILY PRACTICE 02/14/20 Asa Mcnamara MD [place] [address] [place] [address] Stephen Senior Digital Designer CARDIOVASCULAR DISEASE 05/15/16 documented as of this encounter
--- OUTSIDE RECORDS SUMMARY | 2024-11-12 04:46 | XMS_ITS | Encounter Summary ---
Author Organization [facility] Address [address] [place] [address] [place] [address] Care Team Providers Care Student Recruiter Name Role Phone Asa Mcnamara MD Unavailable [phone] Deisi Andrews MD Primary Care Provider [phone] Reason for Visit * Reason Onset Date Comments Insurance Coverage 07/11/2019 Encounter Details Date Type Department Care Team (Late st Contact Info) Description 07/11/[address] [facility] at [facility], [facility] [address] [place] [address] Asa Mcnamara MD [facility]. [facility] [address] [place] [address] Insurance Coverage Social History Tobacco Use Types Packs/Day Years Used Date Smoking Tobacco: Every Day Cigarettes Smokeless Tobacco: Never Comments:1 pk day Alcohol Use Standard Drinks/Week Comments No 0 (1 standard drink = 0.6 oz pur e alcohol) Comments Unknown Sex and Gender Information Value Date Recorded Sex Assigned at Female 12/06/2019 3:36 PM CAN INSPECTOR Legal Sex Female 5:20 PM CDT Gender Identity Female 12/06/2019 3:36 PM CAN INSPECTOR Sexual Orientation Straight 12/06/2019 3: 36 PM CAN INSPECTOR Occupation Industry Job Start Date Job End Date Not on file Not on file Not on file Not on file documented as of this encounter Progress Notes * Nery Cadet - 07/12/2019 9:27 AM CDT Patient is scheduled at [facility] on 07-24-19. * BRIANA Desai - 07/11/2019 4:22 PM CDT Please disregard Katt, that was for Nery. * BRIANA Desai - 07/11/2019 4:21 PM CDT If she is able to get tests done before the 14 of July with her insurance it should be covered at [facility]. If not, it is ok to get tests at [facility] and ok to do without exercise. * Nery Cadet - 07/11/2019 12:40 PM CDT Katt I called [facility] to verify if they do these tests and they do everything except the exercise portion of the KENZIE's. Thoughts on this? Would it be okay to do it without exercise? * Sandy Valentin - 07/11/2019 11:25 AM CDT Ms Zaidi is scheduled 07/18/19 at [facility] for her KENZIE, aortoiliac duplex and carotid doppler. She has [place] so [facility] will be out of network. She lives in [place] so I am not sure if [facility] iscapable of doing these tests or not? documented in this encounter Plan of Treatment Not on file documented as of this encounter Visit Diagnoses Not on filedocumented in this encounter Care Teams Student Recruiter Relationship Specialty Start Date End Date Deisi Andrews MD [address] [place] [address] [place] [address] PCP - General FAMILY PRACTICE 06/15/17 10/14/19 Asa Mcnamara MD [facility]. [facility] [address] [place] [address] [place] Stringer Machine Tender CARDIOVASCULAR DISEASE 05/15/16 documented as of this encounter
--- OUTSIDE RECORDS SUMMARY | 2024-11-12 04:46 | XMS_ITS | Encounter Summary ---
Author Organization [facility] Address [facility] [facility]. [place], [place] [id number] [place] [id number] Care Team Providers Care Paper Cup Machine Tender Name Role Phone Asa Mcnamara MD Unavailable Neva Holden MD Primary Care Provider [phone] Reason for Visit * Reason Comments Peripheral Vascular Disease 3 month foll ow-up Encounter Details Date Type Department Care Team (Late st Contact Info) Description 11/01/2019 10:30 AM MANNEQUIN MAKER Office Visit [facility] at [facility], [facility] [address] [place], [place] [id number] Asa Mcnamara MD [facility]. [facility] [address] [place], [place] [id number] Peripheral Vascular Disease (3 month follow-up ) Social History Tobacco Use Types Packs/Day Years Used Date Smoking Tobacco: Every Day Cigarettes Smokeless Tobacco: Never Comments:1 pk day Alcohol Use Standard Drinks/Week Comments No 0 (1 standard drink = 0.6 oz pur e alcohol) Comments Unknown Sex and Gender Information Value Date Recorded Sex Assigned at Female 12/06/2019 3:36 PM MANNEQUIN MAKER Legal Sex Female 5:20 PM CDT Gender Identity Female 12/06/2019 3:36 PM MANNEQUIN MAKER Sexual Orientation Straight 12/06/2019 3: 36 PM MANNEQUIN MAKER Occupation Industry Job Start Date Job End Date Not on file Not on file Not on file Not on file documented as of this encounter Last Filed Vital Signs Vital Sign Reading Time Taken Comments Blood Pressure 108/70 11/01/2019 10:58 AM MANNEQUIN MAKER Pulse 81 11/01/2019 10:58 AM MANNEQUIN MAKER Temperature - - Respiratory Rate - - Oxygen Saturation 97% 11/01/2019 10:58 AM MANNEQUIN MAKER Inhaled Oxygen Concentration - - Weight 96.2 kg (212 lb) 11/01/2019 10:58 AM MANNEQUIN MAKER Height 160 cm (5' 3 ) 11/01/2019 10:58 AM MANNEQUIN MAKER Body Mass Index 37.55 11/01/2019 10:58 AM MANNEQUIN MAKER documented in this encounter Patient Instructions * Patient Instructions* Renan Lee - 11/01/2019 10:30 AM MANNEQUIN MAKER Images from the original note were not included. Patient Education Patient Education Peripheral Artery Disease and Claudication The Basics Written by the doctors and editors at [facility] What is peripheral artery disease???--??Peripheral artery disease (PAD) is a condition that can cause leg pain that gets worse with activity. Muscle pain that gets worse with activity and better withrest is called claudication. PAD affects the blood vessels (called arteries) that bring blood to the legs. PAD can also cause wounds to heal more slowly than usual. This article is only about the leg pain related to PAD. Normally, blood flows easily through arteries to all parts of the body. But sometimes, fatty clumpscalled plaques build up inside the calvin of arteries (figure 1). Plaques can cause arteries to become narrow or blocked. This prevents blood from flowing normally. When muscles do not get enough blood, symptoms can occur. Some people have a greater chance of getting PAD, such as those who: ?? Smoke ?? Have diabetes ?? Have high cholesterol ?? Have high blood pressure What are the symptoms of PAD???--??PAD often causes pain in the back of the lower leg. The pain usually gets worse with walking or other exercise, and gets better with rest. PAD can also cause pain in the buttocks, thighs, or sometimes in the feet. People who have leg pain can have other symptoms, too, such as: ?? Trouble walking up stairs ?? Trouble getting an erection (in men) or trouble with sexual arousal (in women) Symptoms of claudication can be mild or severe, depending on: ?? Which arteries are affected ?? How narrow the arteries are ?? How much activity a person does Is there a test for PAD???--??Yes. Your doctor or nurse can do different tests to find out if you have PAD, and to check how severe it is. He or she might: ?? Take the blood pressure in your arm and lower leg (just above the ankle) at rest and right afterexercise, and compare them ?? Take the blood pressure in other places in your leg (like the thigh) ?? Order a blood vessel imaging test such as an ultrasound, which can show pictures of your leg arteries How can I help treat my PAD???--??To help treat your PAD and prevent it from getting worse, you can: ?? Stop smoking ?? Get your diabetes, high blood pressure, and high cholesterol under control (if you have these conditions) ?? Walking - Doctors recommend that most people with PAD walk every day. Ask your doctor or nurse how best to begin a walking program. What other treatments might I have???--??Along with a walking program and getting medical conditions under control, some people are also treated with medicines. The medicines used to treat PAD can reduce symptoms, increase blood flow to the legs, and help people walk farther without pain. Most doctors ask their patients to try a medicine called cilostazol (brand name: Pletal). But people who havecertain heart problems cannot take cilostazol and must take a different medicine. If you still have severe symptoms after trying medicines, your doctor will talk with you about the possibility of having surgery or a procedure to increase blood flow to your legs and feet. Your treatment options might include: ?? Angioplasty or stenting - During angioplasty or stenting, the doctor sends a thin tube with a balloon at the end of it to the part of the artery that is blocked. Then the doctor inflates the balloon to open the blockage. Often the doctor props open the artery using a tiny mesh tube called a stent, which stays in the body. ?? Bypass surgery - During bypass surgery, the doctor removes a piece of blood vessel (vein) from another part of the body. Then he or she reattaches that piece of blood vessel (called a vein graft) above and below the area that is clogged. This re-routes blood around the clog, and allows it to getto the part of the leg that was not getting enough blood. Sometimes instead of taking a graft from another part of the body, the doctor can use a man-made graft. What should I know about the different procedures???--??Angioplasty and stenting are used to treat 1 or 2 blocked areas that are short. Surgery works best to treat many or longer blocked areas. People who have the fewest long-term problems after bypass surgery include those who are younger than 70,do not have diabetes, and do not have PAD below the knee. Your doctor might recommend a procedure for you, depending on your symptoms, age, and medical problems. But many people can choose which procedure to have. If your doctor offers you a choice, ask: ?? What are the benefits of each procedure for me? ?? What are the downsides of each procedure for me? ?? What happens if I do not have any procedure? All topics are updated as new evidence becomes available and our peer review process is complete. This topic retrieved from [employer] on: Jun 28, 2019. Topic 37921 Version 8.0 Release: 27.3.2 - C27.227 ?2019??[employer] and/or its affiliates.??All rights reserved. figure 1: Peripheral artery disease Graphic 26630 Version 6.0 Consumer Information Use and Disclaimer This information [...] or not to accept your health care provider's advice, instructions or recommendations. Only your health care provider has the knowledge and training to provide advice that is right for you.The use of [employer] content is governed by the [employer] Terms of Use. ??2019 [employer]. All rights reserved. Copyright ?2019??[employer] and/or its affiliates.??All rights reserved. EQUIN MAKER documented in this encounter Progress Notes * Asa Mcnamara MD - 11/01/2019 10:30 AM CST Chief Complaint: Peripheral Vascular Disease (3 month follow-up ) History of Present Illness: Ms. Zaidi is a pleasant 58-year-old female with type 2 diabetes mellitus, hypertension and peripheral vascular disease. She had endovascular intervention of bilateral iliac arteries in November 2017. She underwent colonoscopy in February 2019 for blood in the stools. Clopidogrel was discontinued. She returns for her scheduled follow-up visit. She tells me that she ran out of isosorbide earlier this month and was having tightness in the chest. She refill the isosorbide and has not had any chest painfor the last 3-4 days. She has been complaining of cough and cough productive of greenish sputum. She is going to talk to her primary care physician. She thinks she needs antibiotics. She denies worsening pain in her legs. In fact she thinks her legs are doing better. She is now able to walk 200 feet. She complains of pain in bilateral buttocks and calves with walking. She also reports dyspnea onexertion. She does not think symptoms have gotten any worse over the last 12 months. No history of rest pain or nonhealing ulcers. She continues to smoke, she is down to 5 cigarettes a day. She had br iefly quit smoking earlier this year. Functional capacity is very limited. ? Recommendations/Plan: ASSESSMENT: 1. Bilateral lower extremity peripheral vascular disease, endovascular intervention of bilateral iliac arteries in 11/2017, stable ?? 2. Carotid artery disease, left carotid endarterectomy in 2014. 3. History of stroke. 4. Hypertension, well controlled. ?? 5. Mixed hyperlipidemia, on statin. ?? 6. Type 2 diabetes mellitus. ?? 7. Likely COPD. ?? 9. Obstructive sleep apnea, not on CPAP. RECOMMENDATIONS/PLAN: Ms. Zaidi continues to report discomfort in her legs. Symptoms periodically get worse without any obvious exacerbating factor. On exam today she has 2+ pedal pulses with strong biphasic signal on Doppler. Follow-up Doppler studies were done at an outside facility. ABIs reported mildly reduced bilaterally. I had also ordered aortoiliac duplex, however the report suggested only did an ultrasound abdomen, no information about velocities through the iliac stents. Overall, her symptoms are stable. They do seem out of proportion to the severity of disease. Continue aspirin andcilostazol. Clopidogrel was discontinued earlier this year after she had blood in the stools. Recent labs show stable hemoglobin. Counseled about regular exercise. Counseled about quitting smoking. Repeat KENZIE and duplex in 3 months. She will benefit from aggressive risk factor modification. Blood pressure is low normal. I recommended lowering amlodipine to 2.5 mg daily. She is on high-dose rosuvastatin and Zetia. She is also on fenofibrate and fish oil supplements. Ms. Zaidi had left carotid endarterectomy in 2014. Follow-up carotid duplex shows moderate disease in the right ICA, stable compared to last year. We will continue with clinical follow-up and repeat duplex in 1 year. She was complaining of chest pain earlier this month when she was out of oral nitrates for few days. She had a normal stress test in 2015. Given her history of PAD, ongoing Bacot abuse, there is concern for ischemic heart disease. I recommended repeating a stress test. Continue aspirin, metoprolol. She appears stable from a heart failure [...] consultation. ?? DATA REVIEWED: Arterial Doppler done 07/24/2019. KENZIE right leg 0.85 with a TBI of 0.94. Biphasic waveforms throughout. KENZIE left leg 0.85 with TBI 0.9. Biphasic waveforms throughout. Carotid duplex done 07/24/2019. 50-69% stenosis right ICA. Less than 50% stenosis left ICA. Vertebralartery flow is antegrade bilaterally. Arterial Doppler done 12/19/2018. KENZIE right leg 1.1 with triphasic waveforms and TBI of 0.78. KENIZE left leg 1.1 with triphasic waveforms and [...] 05/17/2017. Sinus rhythm, normal intervals. Normal ECG. Holter monitor done 06/22/2017. Sinus rhythm with [...] DAILY, Disp: 180 tablet, Rfl: 1 ??? cyclobenzaprine 10 MG tablet, Take 1 tablet (10 mg total) by mouth as needed for Muscle Spasms., Disp: , Rfl: ??? ezetimibe 10 MG tablet, Take 1 tablet (10 mg total) by mouth daily. Prior Auth APPROVED [id number] 01-28-2020., Disp: , Rfl: ??? fexofenadine (SAMANTHA [...] mouth as needed., Disp: , Rfl: ??? COMPRESSION STOCKINGS, 15-20 mm Hg compression knee highs 2 pairs, Disp: 2 Container, Rfl: 0 Allergies Allergen Reactions ??? Haloperidol Seizure ??? Penicillins Redness ??? Resperal-Dm [[id number]] Seizure ??? Triazolam Seizure Past Medical History: Diagnosis Date ??? Arthritis ??? Asthma ??? Chest pain, unspecified ??? Diabetes (CMS/HCC) ??? Emphysema/COPD (CMS/HCC) ??? Essential (primary) hypertension ??? GERD (gastroesophageal reflux disease) ??? Hypercholesterolemia ??? Migraines ??? Mixed hyperlipidemia ??? PVD (peripheral vascular disease) (CMS/HCC) ??? Stroke (CMS/HCC) h/o Past Surgical History: Procedure Laterality Date ??? SECTION 1989 ??? GALLBLADDER SURGERY 2006 removal ??? IR ANGIOPLASTY PERIPHERAL ??? OTHER PROCEDURE 2011 warts removed ??? OTHER PROCEDURE 2014 tube [...] file Gets together: Not on file Attends orthodox service: Not on file Active member of [...] vision and double vision. Respiratory: Positive for cough, shortness of breath and wheezing. Negative for hemoptysis. Cardiovascular: Negative for chest pain, palpitations, orthopnea, leg swelling and PND. Gastrointestinal: Negative for abdominal pain, blood in stool, melena, nausea and vomiting. Genitourinary: Negative for dysuria, hematuria and urgency. Musculoskeletal: Positive for joint pain and myalgias. Negative for back pain. Skin: Negative for rash. Neurological: Positive for tingling, weakness and headaches. Negative for dizziness, sensory change, focal weakness and loss of consciousness. Endo/Heme/Allergies: Bruises/bleeds easily. Psychiatric/Behavioral: Negative for memory loss. All other systems reviewed and are negative. Filed Vitals: 11/01/19 1058 BP: 108/70 Pulse: 81 SpO2: 97% Weight: 96.2 kg (212 lb) Height: 5' 3 (1.6 m) Physical Exam Constitutional: She is oriented [...] side, and 2+ on the left side. By Doppler biphasic signal bilateral PT, DP. Pulmonary/Chest: Effort normal and breath sounds normal. [...] (peripheral vascular disease) with claudication (CMS/HCC) 2. Essential hypertension 3. Hyperlipidemia, mixed 4. Precordial chest pain EQUIN MAKER documented in this encounter Plan of Treatment Not on file documented as of this encounter Visit Diagnoses Diagnosis PVD (peripheral vascular disease) with claudication (CMS/HCC)- Primary Peripheral vascular disease, unspecified Essential hypertension Unspecified essential hypertension Hyperlipidemia, mixed Mixed hyperlipidemia Precordial chest pain Precordial pain documented in this encounter Care Teams Paper Cup Machine Tender Relationship Specialty Start Date End Date Neva Holden MD [address] [address] PCP - General FAMILY PRACTICE 10/15/19 12/05/19 Asa Mcnamara MD [facility] [address] [place] [address] [place] Marine Safety Officer CARDIOVASCULAR DISEASE 05/15/16 documented as of this encounter
--- OUTSIDE RECORDS SUMMARY | 2024-11-12 04:46 | XMS_ITS | Encounter Summary ---
Author Organization [facility] Address [facility]. [place], [place] [address] [place] [address] Care Team Providers Care Sports Agent Name Role Phone Asa Mcnamara MD Unavailable [phone] Neva Holden MD Primary Care Provider [phone] Reason for Visit * Reason Comments Peripheral Vascular Disease 3 month foll ow-up Encounter Details Date Type Department Care Team (Late st Contact Info) Description 06/14/2020 2:00 PM CDT Telemedicine [facility] at [facility] [address], [place] [id number] Asa Mcnamara MD [facility]. [facility] [address] [place], [place] [id number] Peripheral Vascular Disease (3 month follow-up ) Social History Tobacco Use Types Packs/Day Years Used Date Smoking Tobacco: Every Day Cigarettes Smokeless Tobacco: Never Comments:1 pk day Alcohol Use Standard Drinks/Week Comments No 0 (1 standard drink = 0.6 oz pur e alcohol) Comments Unknown Sex and Gender Information Value Date Recorded Sex Assigned at Female 12/06/2019 3:36 PM REVENUE ENFORCEMENT COLLECTION AGENT Legal Sex Female 5:20 PM CDT Gender Identity Female 12/06/2019 3:36 PM REVENUE ENFORCEMENT COLLECTION AGENT Sexual Orientation Straight 12/06/2019 3: 36 PM REVENUE ENFORCEMENT COLLECTION AGENT Occupation Industry Job Start Date Job End Date Not on file Not on file Not on file Not on file COVID-19 Exposure Response Date Recorded In the last month, have you been in contact with someone who was confirmed or suspected to have Coronavirus / COVID-19? Unable to assess 06/14/2020 2:13 PM CDT documented as of this encounter Last Filed Vital Signs Vital Sign Reading Time Taken Comments Blood Pressure 102/80 06/14/2020 1:49 PM CDT Pulse 98 06/14/2020 1:49 PM CDT Temperature - - Respiratory Rate - - Oxygen Saturation - - Inhaled Oxygen Concentration - - Weight 93.9 kg (207 lb) 06/14/2020 1:49 PM CDT Height 157.5 cm (5' 2 ) 06/14/2020 1:49 PM CDT Body Mass Index 37.86 06/14/2020 1:49 PM CDT documented in this encounter Progress Notes * Asa Mcnamara MD - 06/14/2020 2:00 PM CDT I introduced and identified myself, received verbal consent from the patient to proceed with this video visit and made the patient aware that the same confidentiality and information coordinator practices apply. The patient joined the video visit from Home. I completed the virtual visit from Office. The following clinical staff helped with this visit MA: Snow Bowen. Total Time Spent in Minutes: 10 Chief Complaint: Peripheral Vascular Disease (3 month follow-up ) History of Present Illness: Ms. Zaidi is a pleasant 59-year-old female with type 2 diabetes mellitus, hypertension and peripheral vascular disease. She had endovascular intervention of bilateral iliac arteries in November 2017. She was seen in February, she was complaining of atypical chest pain. Her medications were adjusted. She was given a 3-month telehealth visit follow-up. She reports improvement in her symptoms. She has had 1 or 2 episodes of chest pain over the last 3 months. Description remains very atypical. She describes it as a sharp stab on the left side of the chest that last for few seconds. Functional capacity is limited. She is not able to walk more than 50 feet. She reports dyspnea on exertion but denies any chest pain with physical activity. She continues to report pain in her buttocks and calves with walking. No history of rest pain or nonhealing ulcers. She continues to smoke 10 cigarettes a day. Recommendations/Plan: ASSESSMENT: 1. Bilateral lower extremity peripheral [...] chest pain 11. Abnormal stress test RECOMMENDATIONS/PLAN: Chest pain is very atypical. Likely nonanginal. She reports improvement in symptoms, she has had only 1-2 episodes in the last 3 months. Stress test done in 01/2020 was clinically and electrocardiographically negative. SPECT images reported mild fixed defect in the inferior wall with normal wall motion. This was done at an outside facility. I am not able to review the images. However findings would likely suggest attenuation artifact. Findings are low risk. Reasonable to continue with medical management and avoid any nonurgent procedures during the virus pandemic. She agrees with this plan. Continue aspirin, metoprolol and isosorbide mononitrate at the current dose. Blood pressure is well controlled. She is on high-dose rosuvastatin and Zetia. Recheck fasting lipid panel. She continues to report discomfort in her legs. Symptoms periodically get worse without any obviousexacerbating factor. Follow-up Doppler studies done at an outside facility show normal KENZIE bilaterally. Overall, her symptoms are stable. They do seem out of proportion to the severity of disease. Continue aspirin and cilostazol. I recommended repeating aortoiliac duplex. She is requesting these tests be done at [facility] in [place]. Insurance is not accepted at [facility]. She has been counseled about regular exercise and quitting smoking. Ms. Zaidi had left carotid endarterectomy in 2014. Follow-up carotid duplex shows moderate disease in the right ICA, stable compared to last year. We will continue with clinical follow-up and repeat duplex in 1 year. She appears stable from a heart failure standpoint. Her weight is down 8 pounds compared to last office visit. She has significant history of smoking and likely COPD. Shortness of breath is also due to underlying lung disease. Continue furosemide at the current dose. Should get repeat labs. ?? It has been my pleasure to participate in Ms. Zaidi's care. She will return for a follow-up visit in 6 months, earlier if needed. Thank you for [...] total) by mouth 2 (two) times daily. (Patient taking differently: Take 25 mg by mouth daily. ), Disp: 180 tablet, Rfl: 1 ??? Multiple Vitamins-Minerals (PRESERVISION AREDS) capsule, Take 1 capsule by mouth 2 (two) times daily., Disp: , Rfl: ??? nitrofurantoin, macrocrystal-monohydrate, 100 MG capsule, Take 100 mg by mouth 2 (two) times daily. Indications: for three days, Disp: , Rfl: ??? NITROGLYCERIN 0.4 MG SL tablet, PLACE 1 TABLET UNDER THE TONGUE EVERY 5 MINUTES NEEDED FOR CHEST PAIN(IF TAKING 3RD DOSE CONTACT 911), Disp: 25 tablet, Rfl: 1 ??? omeprazole [...] Disp: , Rfl: ??? vitamin D2, ergocalciferol, 65893 UNITS capsule, Take 50,000 Units by mouth every 7 days., Disp: , Rfl: Allergies Allergen Reactions ??? Penicillins Hives and Redness ??? Wasp Venom Protein Anaphylaxis ??? Codeine Nausea and Vomiting ??? Haloperidol Seizure ??? Ketorolac Tromethamine Unknown ??? Resperal-Dm [Kiw-Eb-Uhq-Propyl Xohcyy-Gdf-Ooxrguarf] Seizure ??? Simvastatin Other (see comment) Cant [...] file Gets together: Not on file Attends latter day service: Not on file Active member of [...] shortness of breath. Negative for hemoptysis. Cardiovascular: Negative for chest pain, palpitations, orthopnea, leg swelling and PND. Gastrointestinal: Negative for abdominal pain, blood in stool, melena, nausea and vomiting. Genitourinary: Positive for dysuria. Negative for hematuria and urgency. Musculoskeletal: Positive for joint pain. Negative for back pain. Skin: Negative for rash. Neurological: Positive for tingling. Negative for dizziness, sensory change, focal weakness and loss of consciousness. Endo/Heme/Allergies: Bruises/bleeds easily. Psychiatric/Behavioral: Positive for depression. Negative for memory loss. All other systems reviewed and are negative. Filed Vitals: 06/14/20 1349 BP: 102/80 Pulse: 98 Weight: 93.9 kg (207 lb) Height: 5' 2 (1.575 m) Physical Exam Constitutional: She is oriented to person, place, and time and well-developed, well-nourished, and in no distress. No distress. Physical exam limited by tele health visit. HENT: Head: Normocephalic and atraumatic. Eyes: Pupils are equal, round, and reactive to light. EOM are normal. Neck: Normal range of motion. Neck supple. Pulmonary/Chest: Effort normal. Musculoskeletal: Normal range of motion. Neurological: She is alert and oriented to person, place, and time. Psychiatric: Affect and judgment normal. Vitals reviewed. No results found for this visit on 08/12/16. Diagnoses/Impression: 1. PVD (peripheral vascular disease) with claudication (CMS/HCC) 2. Atypical chest pain 3. Abnormal stress test 4. Essential hypertension 5. Mixed hyperlipidemia 6. Stenosis of right carotid artery documented in this encounter Plan of Treatment Not on file documented as of this encounter Visit Diagnoses Diagnosis PVD (peripheral vascular disease) with claudication (CMS/HCC)- Primary Peripheral vascular disease, unspecified Atypical chest pain Other chest pain Abnormal stress test Other nonspecific abnormal cardiovascular system function study Essential hypertension Unspecified essential hypertension Mixed hyperlipidemia Stenosis of right carotid artery Occlusion and stenosis of carotid artery without mention of cerebral infarction documented in this encounter Care Teams Sports Agent Relationship Specialty Start Date End Date Neva Holden MD [facility] [address] [address] PCP - General FAMILY PRACTICE 02/14/20 Asa Mcnamara MD [facility]. [facility] [address] [place] [address] Stephen Chain Link Fence Installer CARDIOVASCULAR DISEASE 05/15/16 documented as of this encounter
--- OUTSIDE RECORDS SUMMARY | 2024-11-12 04:46 | XMS_ITS | Encounter Summary ---
Author Organization [facility] Address [facility]6 [facility] [place] [address] [place] [address] Care Team Providers Care Warranty Administrator Name Role Phone Asa Mcnamara MD Unavailable [phone] Deisi Andrews MD Primary Care Provider [phone] Encounter Details Date Type Department Care Team (Late st Contact Info) Description 01/29/2020 Orders Only [facility] at [address] [id number] Suzanne Corado, A Social History Tobacco Use Types Packs/Day Years Used Date Smoking Tobacco: Every Day Cigarettes Smokeless Tobacco: Never Comments:1 pk day Alcohol Use Standard Drinks/Week Comments No 0 (1 standard drink = 0.6 oz pur e alcohol) Comments Unknown Sex and Gender Information Value Date Recorded Sex Assigned at Female 12/06/2019 3:36 PM RIVETER PORTABLE MACHINE Legal Sex Female 5:20 PM CDT Gender Identity Female 12/06/2019 3:36 PM RIVETER PORTABLE MACHINE Sexual Orientation Straight 12/06/2019 3: 36 PM RIVETER PORTABLE MACHINE Occupation Industry Job Start Date Job End Date Not on file Not on file Not on file Not on file documented as of this encounter Plan of Treatment Not on file documented as of this encounter Procedures Procedure Name Priority Date/Time Associated Diagnosis Comments USV ART REST W KENZIE LOW EXT Routine 01/26/2020 PVD (peripheral vascular disease) with claudication documented in this encounter Results * USV ART REST W KENZIE LOW EXT (01/26/2020) Anatomical Region Laterality Modality Extremity Vascular Ultraso und Asa Mcnamara MD [facility] Final Result documented in this encounter Visit Diagnoses Diagnosis PVD (peripheral vascular disease) with claudication ([facility]) Peripheral vascular disease, unspecified documented in this encounter Care Teams Warranty Administrator Relationship Specialty Start Date End Date Deisi Andrews MD [address] [place] [address] [place] [address] PCP - General FAMILY PRACTICE 12/06/19 02/13/20 Asa Mcnamara MD [facility] [address] [place] [address] Fenton Caramel Candy Maker CARDIOVASCULAR DISEASE 05/15/16 documented as of this encounter
--- OUTSIDE RECORDS SUMMARY | 2024-11-12 04:46 | XMS_ITS | Encounter Summary ---
Author Organization [facility] Address [facility] [place] [address] [place] [address] Care Team Providers Care Sourcer Name Role Phone Asa Mcnamara MD Unavailable [phone] Deisi Andrews MD Primary Care Provider [phone] Encounter Details Date Type Department Care Team (Late st Contact Info) Description 12/19/2018 Orders Only [facility] [address] [place] [address] Asa Mcnamara MD [address] [facility] [address] [place] [address] Social History Tobacco Use Types Packs/Day Years Used Date Smoking Tobacco: Every Day Cigarettes Smokeless Tobacco: Never Comments:1 pk day Alcohol Use Standard Drinks/Week Comments No 0 (1 standard drink = 0.6 oz pur e alcohol) Comments Unknown Sex and Gender Information Value Date Recorded Sex Assigned at Female 12/06/2019 3:36 PM BREED TO WEAN PRODUCTION TECHNICIAN Legal Sex Female 5:20 PM CDT Gender Identity Female 12/06/2019 3:36 PM BREED TO WEAN PRODUCTION TECHNICIAN Sexual Orientation Straight 12/06/2019 3: 36 PM BREED TO WEAN PRODUCTION TECHNICIAN Occupation Industry Job Start Date Job End Date Not on file Not on file Not on file Not on file documented as of this encounter Plan of Treatment Not on file documented as of this encounter Results * (ABNORMAL) BASIC METABOLIC PANEL (12/19/2018 7:52 AM [facility]) [facility] Signature GLUCOSE 140(H) 70 - 99 MG/DL 12/19/2018 8:31 AM [facility] BUN 23(H) 7 - 18 MG/DL 12/19/2018 8:31 AM [facility] CREATININE S/P/B 0.86 0.55 - 1.02 MG/DL 12/19/2018 8:31 AM [facility] SODIUM S/P/B 138 136 - 145 MMOL/L 12/19/2018 8:31 AM [facility] POTASSIUM S/P/B 3.8 3.5 - 5.1 MMOL/L 12/19/2018 8:31 AM [facility] CHLORIDE S/P/B 109(H) 100 - 108 MMOL/L 12/19/2018 8:31 AM [facility] CO2 21.7 21 - 32 MMOL/L 12/19/2018 8:31 AM [facility] CALCIUM S/P/B 8.5 8.5 - 10.1 MG/DL 12/19/2018 8:31 AM [facility] ANION GAP 11.1 8 - 20 MMOL/L 12/19/2018 8:31 AM [facility] BUN CREATININE RATIO 26.8(H) 6 - 26 12/19/2018 8:31 AM [facility] EGFR NON-AFR. AMER. 76(L) >90 ML/MIN/1.7 3 M2 12/19/2018 8:31 AM [facility] EGFR AFR. AMER. 88(L) >90 ML/MIN/1.7 3 M2 12/19/2018 8:31 AM [facility] Comment: NOTE: eGFR is not calculated for patients <18 years of age. This is an estimated GFR (CKD EPI) and should not be used for calculating drug doses. 12/19/2018 7:52 AM BREED TO WEAN PRODUCTION TECHNICIAN Asa Mcnamara MD LABORATORY Final Result [facility] [address] [place] [address], documented in this encounter Visit Diagnoses Diagnosis Mixed hyperlipidemia- Primary documented in this encounter Care Teams Sourcer Relationship Specialty Start Date End Date Deisi Andrews MD [address] [place] [address] [place] [address] PCP - General FAMILY PRACTICE 06/15/17 10/14/19 Asa Mcnamara MD [facility]. [facility] [address] [place] [address] [place] Special Equipment Technician CARDIOVASCULAR DISEASE 05/15/16 documented as of this encounter
--- OUTSIDE RECORDS SUMMARY | 2024-11-12 04:46 | XMS_ITS | Clinical Summary ---
Author Organization [facility] Address [address] [place] [address] Phone Care Team Providers Care Chief Investigator Name Role Phone Unavailable Primary Care Provider Unavailabl e Medications Medication Sig Dispensed Refills Start Date End Date Status FLUoxetine (PROZAC) 20 MG capsule 1 tab/cap bid 12/15/2015 Active pravastatin (PRAVACHOL) 40 MG tablet 1 tab/cap qday 12/15/2015 Active losartan (COZAAR) 100 MG tablet 1 tab/cap qday 12/15/2015 Active amLODIPine (NORVASC) 10 MG tablet 1 tab/cap qday 12/15/2015 Active omeprazole OTC (PRILOSEC OTC) 20 MG EC tablet 1 tab/cap bid 12/15/2015 Active aspirin 325 MG EC tablet 1 tab/cap qday 12/15/2015 Active beclomethasone (QVAR) 40 MCG/ACT inhaler 2 puff bid 12/15/2015 Active montelukast (SINGULAIR) 10 MG tablet 2 tabs/caps qday 12/15/2015 Active ALPRAZolam (XANAX) 1 MG tablet 1 tab/cap tid PRN 12/16/2015 Active cyclobenzaprine (FLEXERIL) 10 MG tablet 1 tab/cap bid PRN 12/16/2015 Active metFORMIN (GLUCOPHAGE) 500 MG tablet 1 tab/cap bid 12/15/2015 Active albuterol HFA (VENTOLIN HFA) 108 (90 Base) MCG/ACT inhaler as directed 12/15/2015 Ac tive Active Problems Problem Noted Date Diagnosed Date Left lower quadrant rebound abdominal tenderness 12/15/2015 Essential (primary) hypertension 12/15/2015 Type 2 diabetes mellitus without complication Other hyperlipidemia 12/15/2015 Overview (01/28/2019): Converted unresolved ICD9, potential mismatch. Gastro-esophageal reflux disease without esophag itis 12/15/2015 Personal history of transien t ischemic attack (TIA), and cerebral infarction without residual deficits 12/15/2015 Immunizations Name Administration Dates Next Due Influenza TIV (IM) 12/16/2015 Pneumococcal Conjugate 13-Valent 12/16/2015 Family History Medical History Relation Comments Diabetes mellitus Father Heart disease Mother Hypertensive disorder Mother Cerebrovascular accident Sibling Hypertensive disorder Sibling Malignant neoplastic disease Sibling Kidney disease Neg Hx Kidney stone Neg Hx Relation Status Comments Father Mother Sibling Social History Tobacco Use Types Packs/Day Years Used Date Smoking Tobacco: Never Assessed Sex and Gender Information Value Date Recorded Sex Assigned at Not on file Gender Identity Not on file Sexual Orientation Not on file Last Filed Vital Signs Vital Sign Reading Time Taken Comments Blood Pressure 138/84 01/15/2016 12:01 AM DIRECTOR HOME HEALTH Ri ght Pulse - - Temperature 36.3 ??C (97.3 ??F) 01/15/2016 12:[address] Respiratory Rate - - Oxygen Saturation - - Inhaled Oxygen Concentration - - Weight 102 kg (225 lb) 01/15/2016 12:01 AM DIRECTOR HOME HEALTH Height 157.5 cm (5' 2 ) 01/15/2016 12:01 AM DIRECTOR HOME HEALTH Body Mass Index 41.15 01/15/2016 12:01 AM DIRECTOR HOME HEALTH Plan of Treatment Not on file
--- OUTSIDE RECORDS SUMMARY | 2024-11-12 04:46 | XMS_ITS | Encounter Summary ---
Author Organization [facility] Address [address] [facility] [place], [place] [address] [place] [address] Care Team Providers Care Scuba Instructor Name Role Phone Asa Mcnamara MD Unavailable [phone] Deisi Andrews MD Primary Care Provider [phone] Encounter Details Date Type Department Care Team (Latest Contact Info) Description 01/24/2020 11:35 AM CDT - 01/24/2020 11:59 PM CDT Hospital Encounter [facility] [address] [place], [place] [id number] Carlin Jaquez, DPM [address] [place] [address] Discharge Disposition: Home or Self Care (Routine Discharge) Social History Tobacco Use Types Packs/Day Years Used Date Smoking Tobacco: Every Day Cigarettes Smokeless Tobacco: Never Comments:1 pk day Alcohol Use Standard Drinks/Week Comments No 0 (1 standard drink = 0.6 oz pur e alcohol) Comments Unknown Sex and Gender Information Value Date Recorded Sex Assigned at Female 12/06/2019 3:36 PM REGULATOR MECHANIC Legal Sex Female 5:20 PM CDT Gender Identity Female 12/06/2019 3:36 PM REGULATOR MECHANIC Sexual Orientation Straight 12/06/2019 3: 36 PM REGULATOR MECHANIC Occupation Industry Job Start Date Job End Date Not on file Not on file Not on file Not on file documented as of this encounter Medications at Time of Discharge albuterol sulfate HFA (VENTOLIN HFA) 108 (90 BASE) MCG/ACT inhaler Inhale 2 puffs into the lungs every 4 (four) hours as needed for Wheezing. 04/22/2017 ALPRAZolam (XANAX) 1 MG tablet Take 1 tablet (1 mg total) by mouth 3 (three) times daily as needed for Anxiety. 04/22/2017 aspirin 81 MG tablet Take 1 tablet (81 mg total) by mouth daily. 01/25/2019 CHANTIX STARTING MONTH LISS 0.5 MG X 11 & 1 MG X 42 tablet FPD UTD 12/25/2019 COMPRESSION STOCKINGS 15-20 mm Hg compression knee highs 2 pairs 2 Container 05/17/2017 cyclobenzaprine 10 MG tablet Take 1 tablet (10 mg total) by mouth as needed for Muscle Spasms. 08/18/2017 fexofenadine (SAMANTHA ALLERGY) 180 MG tablet Take 1 tablet (180 mg total) by mouth daily. 04/22/2017 Fish Oil 1000 MG Cap Take 2,000 mg by mouth 2 (two) times daily. 01/05/2018 fluoxetine 40 MG capsule Take 40 mg by mouth daily. 01/18/2020 fluticasone propionate 50 MCG/ACT nasal spray U 1 SPR IEN ONCE D TO PREVENT NASAL CONGESTION AND DRAINAGE 2019 furosemide 40 MG tablet Take 1 tablet (40 mg total) by mouth daily. 30 tablet 3 07/26/2019 hydrocodone-aceta minophen 10-325 MG tablet Take 1-2 tablets by mouth as needed. 10/23/2019 losartan 100 MG tablet Take 1 tablet (100 mg total) by mouth daily. 90 tablet 1 01/05/2020 metFORMIN 500 MG tablet Take 1 tablet (500 mg total) by mouth 2 (two) times daily. Resume on , 12/09/17 60 tablet 3 12/07/2017 Multiple Vitamins-Minerals (PRESERVISION AREDS) capsule Take 1 capsule by mouth 2 (two) times daily. 04/08/2016 omeprazole 40 MG capsule Take 40 mg by mouth daily. 12/08/2019 potassium chloride CR 20 MEQ tablet Take 1 tablet (20 mEq total) by mouth daily. 30 tablet 3 07/26/2019 vitamin D2, ergocalciferol, [address]11 UNITS capsule Take 50,000 Units by mouth every 7 days. 01/02/2020 amlodipine 2.5 MG tablet Take 1 tablet (2.5 mg total) by mouth every evening. 30 tablet 3 11/01/2019 0 cilostazol 100 MG tablet Take 1 tablet (100 mg total) by mouth 2 (two) times daily. 180 tablet 1 01/05/2020 0 ezetimibe 10 MG tablet Take 1 tablet (10 mg total) by mouth daily. Prior Auth APPROVED 01-27-19 through 01-28-2020. 01/27/2019 0 famotidine 20 MG tablet Take 20 mg by mouth 2 (two) times daily. 12/21/2019 0 fluoxetine 20 MG capsule Take 2 capsules (40 mg total) by mouth daily. 07/19/2018 0 ibuprofen 600 MG tablet Take 600 mg by mouth 3 (three) times daily. 12/07/2019 0 isosorbide mononitrate ER 30 MG 24 hr tablet Take 1 tablet (30 mg total) by mouth daily. 90 tablet 1 01/05/2020 0 metoprolol succinate ER 25 MG 24 hr tablet Take 1 tablet (25 mg total) by mouth daily. 90 tablet 1 01/05/2020 0 montelukast 10 MG tablet Take 1 tablet (10 mg total) by mouth daily. 07/19/2018 0 nitroglycerin 0.[address] 1 tablet (0.4 mg total) under the tongue every 5 (five) minutes as needed for Chest Pain (If taking 3rd dose, contact 911.). 25 tablet 1 01/05/2020 0 predniSONE 10 mg tablet 01/02/2020 0 rosuvastatin 40 MG tablet Take 1 tablet (40 mg total) by mouth nightly at bedtime. Prior Auth APPROVED 12-28-18 through 12-28-2019. 11/01/2019 0 trazodone 50 MG tablet Take 1 tablet by mouth as needed. 08/16/2017 0 documented as of this encounter Plan of Treatment Not on file documented as of this encounter Procedures Procedure Name Priority Date/Time Associated Diagnosis Comments XR FOOT STANDING LT 3V Routine 01/24/2020 11:56 AM CDT Plantar flexed metatarsal bone of left foot documented in this encounter Results * XR FOOT STANDING [...] By: See Trevino MD, 01/24/2020 12:37 PM Carlin Jaquez DPM GENERAL IMAGING Final Result documented in this encounter Visit Diagnoses Diagnosis Plantar flexed metatarsal bone of left foot documented in this encounter Care Teams Scuba Instructor Relationship Specialty Start Date End Date Deisi Andrews MD [address] [place] [address] [place] [address] PCP - General FAMILY PRACTICE 12/06/19 02/13/20 Asa Mcnamara MD [facility] [address] [place] [address] Comerio Information Broker CARDIOVASCULAR DISEASE 05/15/16 documented as of this encounter
--- OUTSIDE RECORDS SUMMARY | 2024-11-12 04:46 | XMS_ITS | Encounter Summary ---
Author Organization [facility] Address [address] [place] [address] Phone Care Team Providers Care Buckle And Button Maker Name Role Phone Unavailable Primary Care Provider Unavailabl e Encounter Details Date Type Department Care Team (Late st Contact Info) Description 11/12/2015 Legacy Encounter - Labs HISTORICAL CONVERSION CENTRAL [address] [place], [place] [address], [place] [address] Mnuira Heller MD [address] [facility], SU[address] [facility] [place] [address] Social History Tobacco Use Types Packs/Day Years Used Date Smoking Tobacco: Never Assessed Sex and Gender Information Value Date Recorded Sex Assigned at Not on file Gender Identity Not on file Sexual Orientation Not on file documented as of this encounter Plan of Treatment Not on file documented as of this encounter Procedures Procedure Name Priority Date/Time Associated Diagnosis Comments MANUALLY ENTERED ORDER Routine 11/12/2015 12:00 AM PHOTOGRAVURE PRESS OPERATOR documented in this encounter Results * Manually Entered Order (11/12/2015 12:00 AM PHOTOGRAVURE PRESS OPERATOR) CHOLESTEROL 204 EXTERNAL LAB TRIGLYCERIDES 203 EXTERNAL LAB Cholesterol, HDL 48 EXTERNAL LAB LDL 115 EXTERNAL LAB Hemoglobin A1c % 6.0 EXTERNAL LAB 11/12/2015 Munira Heller MD LAB BLOOD ORDERABLES EXTERNAL LAB documented in this encounter Visit Diagnoses Not on filedocumented in this encounter
--- OUTSIDE RECORDS SUMMARY | 2024-11-12 04:46 | XMS_ITS | Encounter Summary ---
Author Organization [facility] Address [facility]ly [facility] [facility] [place] [address] [place] [address] Care Team Providers Care Washing Tub Operator Name Role Phone Asa Mcnamara MD Unavailable [phone] Deisi Andrews MD Primary Care Provider [phone] Reason for Visit * Reason Onset Date Comments Results 12/30/2018 Encounter Details Date Type Department Care Team (Late st Contact Info) Description 12/30/[address] [facility] [place] [address] Hari Rehman, FOREIGN LANGUAGES PROFESSOR Three [address] [address] Results Social History Tobacco Use Types Packs/Day Years Used Date Smoking Tobacco: Every Day Cigarettes Smokeless Tobacco: Never Comments:1 pk day Alcohol Use Standard Drinks/Week Comments No 0 (1 standard drink = 0.6 oz pur e alcohol) Comments Unknown Sex and Gender Information Value Date Recorded Sex Assigned at Female 12/06/2019 3:36 PM OPTICAL LENS MANUFACTURING TECH Legal Sex Female 5:20 PM CDT Gender Identity Female 12/06/2019 3:36 PM OPTICAL LENS MANUFACTURING TECH Sexual Orientation Straight 12/06/2019 3: 36 PM OPTICAL LENS MANUFACTURING TECH Occupation Industry Job Start Date Job End Date Not on file Not on file Not on file Not on file documented as of this encounter Progress Notes * Hari Rehman NP - 12/30/2018 2:47 PM CST Tried calling patient with arterial doppler studies. No answer. Unable to leave a message. She has an apt coming up in the next month, we can discuss results at that time, no need for changes in regimen right now. CAL LENS MANUFACTURING TECH documented in this encounter Plan of Treatment Not on file documented as of this encounter Visit Diagnoses Not on filedocumented in this encounter Care Teams Washing Tub Operator Relationship Specialty Start Date End Date Deisi Andrews MD [address] [place] [address] [place] [address] PCP - General FAMILY PRACTICE 06/15/17 10/14/19 Asa Mcnamara MD [facility]. [facility] [address] [place] [address] [place] Carver And Checkerer Specials CARDIOVASCULAR DISEASE 05/15/16 documented as of this encounter
--- OUTSIDE RECORDS SUMMARY | 2024-11-12 04:46 | XMS_ITS | Encounter Summary ---
Author Organization [facility] Address [facility]6 [place] [address] [place] [address] Care Team Providers Care Furniture Assembly Supervisor Name Role Phone Asa Mcnamara MD Unavailable [phone] Neva Holden MD Primary Care Provider [phone] Encounter Details Date Type Department Care Team (Late st Contact Info) Description 08/02/2020 Orders Only [facility] at [address] [address] Suzanne Corado, RMA Social History Tobacco Use Types Packs/Day Years Used Date Smoking Tobacco: Every Day Cigarettes Smokeless Tobacco: Never Comments:1 pk day Alcohol Use Standard Drinks/Week Comments No 0 (1 standard drink = 0.6 oz pur e alcohol) Comments Unknown Sex and Gender Information Value Date Recorded Sex Assigned at Female 12/06/2019 3:[address] MIXER OPERATOR Legal Sex Female 5:20 PM CDT Gender Identity Female 12/06/2019 3:[address] MIXER OPERATOR Sexual Orientation Straight 12/06/2019 3: [address] MIXER OPERATOR Occupation Industry Job Start Date Job End Date Not on file Not on file Not on file Not on file documented as of this encounter Plan of Treatment Not on file documented as of this encounter Procedures Procedure Name Priority Date/Time Associated Diagnosis Comments USV ART REST W KENZIE LOW EXT Routine 07/10/2020 PVD (peripheral vascular disease) with claudication documented in this encounter Results * USV ART REST W KENZIE LOW EXT (07/10/2020) Anatomical Region Laterality Modality Extremity Vascular Ultraso und Asa Mcnamara MD [facility] Final Result documented in this encounter Visit Diagnoses Diagnosis PVD (peripheral vascular disease) with claudication ([facility]) Peripheral vascular disease, unspecified documented in this encounter Care Teams Furniture Assembly Supervisor Relationship Specialty Start Date End Date Neva Holden MD [facility] [address] [place] [address] PCP - General FAMILY PRACTICE 02/14/20 Asa Mcnamara MD [facility]. [facility] [address] [place] [address] [place] Wastewater Treatment Engineer CARDIOVASCULAR DISEASE 05/15/16 documented as of this encounter
--- OUTSIDE RECORDS SUMMARY | 2024-11-12 04:46 | XMS_ITS | Encounter Summary ---
Author Organization [facility] Address [facility]6 [facility] [place] [address] [place] [address] Care Team Providers Care Dock Operations Supervisor Name Role Phone Asa Mcnamara MD Unavailable [phone] Neva Holden MD Primary Care Provider [phone] Reason for Visit * Reason Onset Date Comments Other 02/19/2020 Encounter Details Date Type Department Care Team (Late st Contact Info) Description 02/19/2020 Telephone [place] at [facility], [facility] [address] [place] [address] Asa Mcnamara MD [facility]. [facility] [address] [place] [address] Other Social History Tobacco Use Types Packs/Day Years Used Date Smoking Tobacco: Every Day Cigarettes Smokeless Tobacco: Never Comments:1 pk day Alcohol Use Standard Drinks/Week Comments No 0 (1 standard drink = 0.6 oz pur e alcohol) Comments Unknown Sex and Gender Information Value Date Recorded Sex Assigned at Female 12/06/2019 3:36 PM AMMUNITION ASSEMBLY I LABORER Legal Sex Female 5:20 PM CDT Gender Identity Female 12/06/2019 3:36 PM AMMUNITION ASSEMBLY I LABORER Sexual Orientation Straight 12/06/2019 3: 36 PM AMMUNITION ASSEMBLY I LABORER Occupation Industry Job Start Date Job End Date Not on file Not on file Not on file Not on file documented as of this encounter Progress Notes * Nery L Cadet - 02/19/2020 2:20 PM CDT Outreach travel screening. Spoke with Rody Zaidi regarding his upcoming appointment with ASA MCNAMARA MD. Traveled internationally in the last month? nO If yes, where and when? Been in contact with someone who was sick? No Experienced any of the following: Abdominal pain? No Bruising or bleeding? No Cough? No Diarrhea? No Fever? No Joint pain? No Muscle pain? No Rash? No Red eye? No Severe headache? No Vomitting? No Weakness? No documented in this encounter Plan of Treatment Not on file documented as of this encounter Visit Diagnoses Not on filedocumented in this encounter Care Teams Dock Operations Supervisor Relationship Specialty Start Date End Date Neva Holden MD [facility] [address] [place] [address] PCP - General FAMILY PRACTICE 02/14/20 Asa Mcnamara MD [facility] [address] [place] [address] [place] Diet Aide CARDIOVASCULAR DISEASE 05/15/16 documented as of this encounter
--- OUTSIDE RECORDS SUMMARY | 2024-11-12 04:46 | XMS_ITS | Encounter Summary ---
Author Organization [facility] Address [facility]. [place], [place] [address] [place] [address] Care Team Providers Care Building Performance Consultant Name Role Phone Asa Mcnamara MD Unavailable [phone] Neva Holden MD Primary Care Provider [phone] Reason for Visit * Reason Onset Date Comments Results 07/29/2020 Encounter Details Date Type Department Care Team (Late st Contact Info) Description 07/29/2020 Telephone [facility] [facility] at [address] [address] Karen Barboza RN Results Social History Tobacco Use Types Packs/Day Years Used Date Smoking Tobacco: Every Day Cigarettes Smokeless Tobacco: Never Comments:1 pk day Alcohol Use Standard Drinks/Week Comments No 0 (1 standard drink = 0.6 oz pur e alcohol) Comments Unknown Sex and Gender Information Value Date Recorded Sex Assigned at Female 12/06/2019 3:36 PM CONTAINER CRANE OPERATOR Legal Sex Female 5:20 PM CDT Gender Identity Female 12/06/2019 3:36 PM CONTAINER CRANE OPERATOR Sexual Orientation Straight 12/06/2019 3: 36 PM CONTAINER CRANE OPERATOR Occupation Industry Job Start Date Job End Date Not on file Not on file Not on file Not on file documented as of this encounter Progress Notes * Katt Walter RN - 07/31/2020 4:32 PM CDT Kaylee GARCIA notified the patient. Documented in a new encounter. * Katt Walter RN - 07/31/2020 4:26 PM CDT I received a voicemail from the patient asking for test results. Message to Kaylee GARCIA. * Karen Barboza RN - 07/29/2020 2:41 PM CDT Thanks, please give results to Kaylee. * Mirna Wise - 07/29/2020 2:37 PM CDT I should be receiving the testing from [facility] in just a few minutes. * Karen Barboza RN - 07/29/2020 1:50 PM CDT Pt left a VM stating that she had some vascular testing done recently at [facility] and would like the results, also states that she has been told that My legs are getting worse, states if needs vascular procedure/surgery she has been told that her insurance will not cover LIZETH, so would have to have done at [facility], asks if she should find a vascular MD/surgeon at [facility]. Message to medical records. Message to Robin. Rosy Barboza R.N. documented in this encounter Plan of Treatment Not on file documented as of this encounter Visit Diagnoses Not on filedocumented in this encounter Care Teams Building Performance Consultant Relationship Specialty Start Date End Date Neva Holden MD [facility] [place] [address] PCP - General FAMILY PRACTICE 02/14/20 Asa Mcnamara MD Three [facility]. [facility] [address] [place] [address] [place] Boiler Operator CARDIOVASCULAR DISEASE 05/15/16 documented as of this encounter
--- OUTSIDE RECORDS SUMMARY | 2024-11-12 04:46 | XMS_ITS | Encounter Summary ---
Author Organization [facility] Address [address] [place] [address] [place] [address] Care Team Providers Care Manager Studio Name Role Phone Asa Mcnamara MD Unavailable [phone] Deisi Andrews MD Primary Care Provider [phone] Reason for Referral * Imaging (Routine) - Closed Specialty Diagnoses / Procedures Referred By Contac t Referred To Contact CARDIOLOGY DIAGNOSTICS Diagnoses Stenosis of right carotid artery Procedures USV CAROTID DUPLEX DILEEP Asa Mcnamara MD [address] [address] Phone: tel: fax: Referral ID Status Reason Start Date Expiration Date Visits Re quested Visits Authorized [id number] Closed 01/25/2019 02/25/2020 1 1 * Imaging (Routine) - Closed Specialty Diagnoses / Procedures Referred By Contac t Referred To Contact CARDIOLOGY DIAGNOSTICS Diagnoses PVD (peripheral vascular disease) with claudication (CMS/HCC) Other specified symptoms and signs involving the circulatory and respiratory systems Procedures USV AORTA ILIAC IVC DUPLEX COMP Asa Mcnamara MD [address] [address] Phone: tel: fax: Referral ID Status Reason Start Date Expiration Date Visits Re quested Visits Authorized [id number] Closed 01/25/2019 02/26/2020 1 1 Reason for Visit * Reason Comments Peripheral Vascular Disease 6 mo fu Encounter Details Date Type Department Care Team (Late st Contact Info) Description 01/25/2019 10:45 AM CDT Office Visit [facility] [facility], [facility] at [place] Three [facility] [place] [address] [place] [address] Asa Mcnamara MD Three [facility]. [place] [address] [place], [place] [id number] Peripheral Vascular Disease (6 mo fu ) Social History Tobacco Use Types Packs/Day Years Used Date Smoking Tobacco: Every Day Cigarettes Smokeless Tobacco: Never Comments:1 pk day Alcohol Use Standard Drinks/Week Comments No 0 (1 standard drink = 0.6 oz pur e alcohol) Comments Unknown Sex and Gender Information Value Date Recorded Sex Assigned at Female 12/06/2019 3:36 PM PRODUCT DEVELOPMENT ASSISTANT Legal Sex Female 5:20 PM CDT Gender Identity Female 12/06/2019 3:36 PM PRODUCT DEVELOPMENT ASSISTANT Sexual Orientation Straight 12/06/2019 3: 36 PM PRODUCT DEVELOPMENT ASSISTANT Occupation Industry Job Start Date Job End Date Not on file Not on file Not on file Not on file documented as of this encounter Last Filed Vital Signs Vital Sign Reading Time Taken Comments Blood Pressure 108/70 01/25/2019 10:55 AM CDT Pulse 83 01/25/2019 10:55 AM CDT Temperature - - Respiratory Rate - - Oxygen Saturation 97% 01/25/2019 10:55 AM CDT Inhaled Oxygen Concentration - - Weight 93.9 kg (207 lb) 01/25/2019 10:55 AM CDT Height 160 cm (5' 3 ) 01/25/2019 10:55 AM CDT Body Mass Index 36.67 01/25/2019 10:55 AM CDT documented in this encounter Patient Instructions * Patient Instructions* Renan Lee - 01/25/2019 10:45 AM CDT Images from the original note were not included. Patient Education Patient Education Peripheral Artery Disease and Claudication The Basics Written by the doctors and editors at [facility] What is peripheral artery disease???--??Peripheral [...] a stent, which stays in the body. Some special balloons and stents also release medicine to help the artery stay open longer. ?? Bypass surgery - During bypass surgery, [...] process is complete. This topic retrieved from [employer] on: Aug 26, 2018. Topic 75692 Version 7.0 Release: 26.4.7 - C26.268 ?2018??[employer] and/or its affiliates.??All rights reserved. figure 1: Peripheral artery disease Graphic 00446 Version 6.0 Consumer Information Use and Disclaimer [...] that is right for you.The use of [employer] content is governed by the [employer] Terms of Use. ??2018 [employer]. All rights reserved. Copyright ?2018??[employer]. and/or its affiliates.??All rights reserved. documented in this encounter Progress Notes * Asa Mcnamara MD - 01/25/2019 10:45 AM CDT Chief Complaint: Peripheral Vascular Disease (6 mo fu ) History of Present Illness: Ms. Zaidi is a pleasant 58-year-old female with type 2 diabetes mellitus, hypertension and peripheral vascular disease. She had endovascular intervention of bilateral iliac arteries in November 2017. She returns for her scheduled follow-up visit. She states that she had been doing well after the intervention last year. However for the last 2 days, she has been complaining of discomfort in her buttocks and calves. She was walking half a block, however now she is hurting after walking 50-100 feet.She denies rest pain. No history of nonhealing ulcers. She had quit smoking for 2 weeks, but then has restarted smoking. Functional capacity is very limited. She also reports dyspnea on exertion. No history of chest pain. ? Recommendations/Plan: ASSESSMENT: 1. Bilateral lower extremity [...] pulses with strong biphasic signal on Doppler. The ABIs normal bilaterally with triphasic waveforms and no exercise-induced drop. Duplex shows mild increase in velocities in the bilateral common iliac stents, but overall stable. Her symptoms are out of proportion to the severity of disease. She reports improvement in her symptoms after the procedure last year. I believe it is reasonable to continue with medical management at this time. We will continue with close clinical follow-up and repeat Doppler studies in 6 months. Continue dual antiplatelets. Continue cilostazol. She needs aggressive risk factor modification. Blood pressure is well controlled. Lipid panel has improved with rosuvastatin. She will benefitfrom further lipid lowering. She does not think she will be able to tolerate a higher statin dose. Continue rosuvastatin 20 mg daily. I will add Zetia 10 mg daily. She is also on fenofibrate and fish oil supplements. Counseled about regular exercise. Advised her to quit smoking. Ms. Zaidi had left carotid endarterectomy in 2014. Follow-up duplex scan done last year showed moderate disease in right ICA. We will continue with close clinical follow-up and repeat duplex study later this year. She appears stable from a heart [...] consultation. ?? DATA REVIEWED: Arterial Doppler done 12/19/2018. KENZIE right leg [...] AM LDL 98 12/19/2018 07:52 AM NA 138 12/19/2018 07:52 AM K 3.8 12/19/2018 07:52 AM BUN 23 (H) 12/19/2018 07:52 AM CR 0.86 12/19/2018 07:52 AM GLU 140 (H) 12/19/2018 07:52 AM ALT 31 04/27/2017 WBC 8.1 12/07/2017 07:37 AM HGB 12.6 12/07/2017 07:37 AM PLT 158 12/07/2017 07:37 AM HGBA1C 5.9% 03/26/2016 11:28 AM TSH 3.99 09/02/2016 08:13 AM TSH 3.99 09/02/2016 08:13 AM ? Medications: Current Outpatient Medications: ??? aspirin 81 MG tablet, Take 1 tablet (81 mg total) by mouth daily., Disp: , Rfl: ??? cilostazol 100 MG tablet, Take 1 tablet (100 mg total) by mouth 2 (two) times daily. (HOLDING),Disp: , Rfl: ??? clopidogrel 75 MG tablet, Take 1 tablet (75 mg total) by mouth daily. (HOLDING), Disp: , Rfl: ??? Coenzyme Q10 200 MG Cap, Take 1 capsule by mouth daily., Disp: , Rfl: ??? dicyclomine (BENTYL) 10 MG capsule, Take 1 capsule (10 mg total) by mouth as needed., Disp: , Rfl: ??? ezetimibe 10 MG tablet, Take 1 tablet (10 mg total) by mouth daily., Disp: 30 tablet, Rfl: 6 ??? furosemide 40 MG tablet, Take 1 tablet (40 mg total) by mouth daily., Disp: , Rfl: ??? ondansetron 4 MG tablet, Take 1 tablet (4 mg total) by mouth as needed for Nausea., Disp: , Rfl: ??? albuterol sulfate HFA (VENTOLIN HFA) 108 (90 BASE) MCG/ACT inhaler, Inhale 2 puffs into the lungs every 4 (four) hours as needed for Wheezing., Disp: , Rfl: ??? ALPRAZolam (XANAX) 1 MG tablet, Take 1 tablet (1 mg total) by mouth 3 (three) times daily as needed for Anxiety., Disp: , Rfl: ??? amlodipine 5 MG tablet, Take 1 tablet by mouth daily., Disp: , Rfl: ??? COMPRESSION STOCKINGS, 15-20 mm Hg compression knee highs 2 pairs, Disp: 2 Container, Rfl: 0 ??? cromolyn 4 % ophthalmic solution, As directed, Disp: , Rfl: ??? cyclobenzaprine 10 MG tablet, Take 1 tablet (10 mg total) by mouth as needed for Muscle Spasms., Disp: , Rfl: ??? fenofibrate 160 MG tablet, Take 1 tablet (160 mg total) by mouth daily., Disp: 30 tablet, Rfl: 4 ??? fexofenadine (SAMANTAH ALLERGY) 180 MG tablet, Take 1 tablet (180 mg total) by mouth daily., Disp: , Rfl: ??? Fish Oil 1000 MG Cap, Take 2,000 mg by mouth 2 (two) times daily., Disp: , Rfl: ??? fluoxetine 20 MG capsule, Take 2 capsules (40 mg total) by mouth daily., Disp: , Rfl: ??? hydrocodone-acetaminophen 5-325 MG tablet, Take 1 tablet by mouth 2 (two) times daily., Disp: ,Rfl: ??? ISOSORBIDE MONONITRATE ER 30 MG 24 hr tablet, TAKE 1 TABLET BY MOUTH ONCE DAILY, Disp: 90 tablet, Rfl: 0 ??? losartan 100 MG tablet, Take 1 [...] (two) times daily., Disp: , Rfl: ??? NITROGLYCERIN 0.4 MG SL tablet, PLACE 1 TABLET UNDER THE TONGUE EVERY 5 MINUTES NEEDED FOR CHEST PAIN (IF NO RELIEF AFTER 3RD DOSE, CONTACT 911), Disp: 25 tablet, Rfl: 1 ??? POTASSIUM CHLORIDE CR 20 MEQ tablet, TAKE 1 TABLET BY MOUTH ONCE DAILY, Disp: 90 tablet, Rfl: 0 ??? rosuvastatin 20 MG tablet, Take 1 tablet (20 mg total) by mouth nightly. Prior Auth APPROVED 12-28-18 through 12-28-2019., Disp: , Rfl: ??? trazodone 50 MG tablet, Take 1 tablet by mouth as needed., Disp: , Rfl: Allergies Allergen Reactions ??? Haloperidol Seizure ??? Penicillins Redness ??? Resperal-Dm [Mus-Vh-Byz-Propyl Uqntri-Vez-[id number]] Seizure ??? Triazolam Seizure Past Medical History: Diagnosis Date ??? Arthritis ??? Asthma ??? Chest pain, unspecified ??? Diabetes (CMS/HCC) ??? Emphysema/COPD (CMS/HCC) ??? Essential (primary) hypertension ??? GERD (gastroesophageal reflux disease) ??? Hypercholesterolemia ??? Migraines ??? PVD (peripheral vascular disease) (CMS/[facility]) ??? Stroke ([facility]/HCC) h/o Past Surgical History: Procedure Laterality Date [...] file Gets together: Not on file Attends gnosticist service: Not on file Active member of [...] Review of Systems Constitutional: Negative for chills, fever, malaise/fatigue and weight loss. HENT: Negative for hearing [...] Skin: Negative for rash. Neurological: Positive for headaches. Negative for dizziness, sensory change, focal weakness, loss of consciousness and weakness. Endo/Heme/Allergies: Positive for polydipsia. Bruises/bleeds easily. Psychiatric/Behavioral: Negative for memory loss. Filed Vitals: 01/25/19 1055 BP: 108/70 Pulse: 83 SpO2: 97% Weight: 93.9 kg (207 lb) Height: 5' 3 (1.6 m) Physical [...] the left side. Dorsalis pedis pulses are 2+ on the right side, and 2+ on the left side. Posterior tibial pulses [...] PVD (peripheral vascular disease) with claudication (CMS/HCC) USV ART REST W KENZIE LOW EXT USV AORTA ILIAC IVC DUPLEX COMP clopidogrel 75 MG tablet 2. Stenosis of right carotid artery USV CAROTID DUPLEX DILEEP 3. Other specified symptoms and signs involving the circulatory and respiratory systems USV AORTA ILIAC IVC DUPLEX COMP 4. Essential hypertension 5. Mixed hyperlipidemia documented in this encounter Plan of Treatment Not on file documented as of this encounter Results * USV CAROTID DUPLEX DILEEP (07/24/2019) Anatomical Region Laterality Modality Neck Vascular Ultraso und Asa Mcnamara MD VASC Final Result * USV AORTA ILIAC IVC DUPLEX COMP (07/24/2019) Anatomical Region Laterality Modality NA Vascular Ultraso und Asa Mcnamara MD VAS Final Result documented in this encounter Visit Diagnoses Diagnosis PVD (peripheral vascular disease) with claudication (CMS/HCC)- Primary Peripheral vascular disease, unspecified Stenosis of right carotid artery Occlusion and stenosis of carotid artery without mention of cerebral infarction Other specified symptoms and signs involving the circulatory and respiratory systems Essential hypertension Unspecified essential hypertension Mixed hyperlipidemia documented in this encounter Care Teams Manager Studio Relationship Specialty Start Date End Date Deisi Andrews MD [address] [place] [address] [place] [address] PCP - General FAMILY PRACTICE 06/15/17 10/14/19 Asa Mcnamara MD [facility] [address] [place] [address] [place] Digital Intern CARDIOVASCULAR DISEASE 05/15/16 documented as of this encounter
--- OUTSIDE RECORDS SUMMARY | 2024-11-12 04:46 | XMS_ITS | Encounter Summary ---
Author Organization [facility] Address [address] [facility]. [place], [place] [address] [place] [id number] Care Team Providers Care Dementia Program Director Name Role Phone Asa Mcnamara MD Unavailable [phone] Deisi Andrews MD Primary Care Provider [phone] Reason for Referral * Imaging (Routine) - Closed Specialty Diagnoses / Procedures Referred By Contac t Referred To Contact CARDIOLOGY Diagnoses PVD (peripheral vascular disease) with claudication (CMS/HCC) Procedures USV ART REST W KENZIE LOW EXT [facility] KENZIE LTD DILEEP Asa Mcnamara MD [address] [address] Phone: tel: fax: [facility] [place] [address] Phone: tel: Referral ID Status Reason Start Date Expiration Date Visits Re quested Visits Authorized [id number] Closed 07/19/2018 01/16/2019 1 1 ICAL LABORATORY TESTER * Imaging (Routine) - Closed Specialty Diagnoses / Procedures Referred By Contac t Referred To Contact CARDIOLOGY Diagnoses Symptoms involving cardiovascular system PVD (peripheral vascular disease) with claudication (CMS/HCC) Procedures USV AORTA ILIAC IVC DUPLEX COMP Asa Mcnamara MD [address] [address] Phone: tel: fax: [facility] [place] [address] Phone: tel: Referral ID Status Reason Start Date Expiration Date Visits Re quested Visits Authorized [id number] Closed 07/19/2018 01/16/2019 1 1 ICAL LABORATORY TESTER Reason for Visit * Imaging (Routine) - Closed Specialty Diagnoses / Procedures Referred By Contsamra t Referred To Contact CARDIOLOGY Diagnoses Symptoms involving cardiovascular system PVD (peripheral vascular disease) with claudication (CMS/HCC) Procedures USV AORTA ILIAC IVC DUPLEX COMP Asa Mcnamara MD [address] [address] Phone: tel: fax: [place] [address] Phone: tel: Referral ID Status Reason Start Date Expiration Date Visits Re quested Visits Authorized [id number] Closed 07/19/2018 01/16/2019 1 1 Encounter Details Date Type Department Care Team (Late st Contact Info) Description 12/19/2018 7:45 AM CHEMICAL LABORATORY TESTER - 12/19/2018 11:59 PM CHEMICAL LABORATORY TESTER Hospital Encounter [facility] Vascular Lab [place], [place] [address] Asa Mcnamara MD [address] [id number] Discharge Disposition: Home or Self Care (Routine Discharge) Social History Tobacco Use Types Packs/Day Years Used Date Smoking Tobacco: Every Day Cigarettes Smokeless Tobacco: Never Comments:1 pk day Alcohol Use Standard Drinks/Week Comments No 0 (1 standard drink = 0.6 oz pur e alcohol) Comments Unknown Sex and Gender Information Value Date Recorded Sex Assigned at Female 12/06/2019 3:36 PM CHEMICAL LABORATORY TESTER Legal Sex Female 5:20 PM CDT Gender Identity Female 12/06/2019 3:36 PM CHEMICAL LABORATORY TESTER Sexual Orientation Straight 12/06/2019 3: 36 PM CHEMICAL LABORATORY TESTER Occupation Industry Job Start Date Job End [...] times daily as needed for Anxiety. 04/22/2017 COMPRESSION STOCKINGS 15-20 mm Hg compression knee highs 2 pairs 2 Container 05/17/2017 cyclobenzaprine 10 MG tablet Take 1 tablet (10 mg total) by mouth as needed for Muscle Spasms. 08/18/2017 fexofenadine (SAMANTHA ALLERGY) 180 MG tablet Take 1 tablet (180 mg total) by mouth daily. 04/22/2017 Fish Oil 1000 MG Cap Take 2,000 mg by mouth 2 (two) times daily. 01/05/2018 metFORMIN 500 MG tablet Take 1 tablet (500 mg total) by mouth 2 (two) times daily. Resume on , 12/09/17 60 tablet 3 12/07/2017 Multiple Vitamins-Minerals (PRESERVISION AREDS) capsule Take 1 capsule by mouth 2 (two) times daily. 04/08/2016 AEROSPAN 80 MCG/ACT Aero Soln Inhale 1 puff into the lungs 2 (two) times daily. 05/19/2017 9 amlodipine 5 MG tablet Take 1 tablet by mouth daily. 04/08/2016 9 aspirin 81 MG tablet Take 1 tablet (81 mg total) by mouth every other day. 08/30/2018 9 cilostazol 100 MG tablet Take 1 tablet (100 mg total) by mouth 2 (two) times daily. 60 tablet 6 07/26/2018 9 clopidogrel 75 MG tabletIndications :PVD (peripheral vascular disease) ([facility]) Take 1 tablet (75 mg total) by mouth daily. 30 tablet 2 08/30/2018 9 cromolyn 4 % ophthalmic solution As directed 07/19/2018 9 fenofibrate 160 MG tablet Take 1 tablet (160 mg total) by mouth daily. 30 tablet 4 11/25/2017 9 fluoxetine 20 MG capsule Take 2 capsules (40 mg total) by mouth daily. 07/19/2018 0 FUROSEMIDE 40 MG tablet TAKE ONE TABLET BY MOUTH ONCE DAILY 30 tablet 4 10/19/2018 9 hydrocodone-aceta minophen 5-325 MG tablet Take 1 tablet by mouth 2 (two) times daily. 07/30/2017 9 ISOSORBIDE MONONITRATE ER 30 MG 24 hr tablet TAKE 1 TABLET BY MOUTH ONCE DAILY 90 tablet 11/03/2018 9 losartan 100 MG tablet Take 1 tablet (100 mg total) by mouth daily. 30 tablet 3 11/25/2017 0 METOPROLOL SUCCINATE 25 MG 24 hr tablet TAKE 1 TABLET BY MOUTH ONCE DAILY 90 tablet 1 09/06/2018 0 montelukast 10 MG tablet Take 1 tablet (10 mg total) by mouth daily. 07/19/2018 0 NITROGLYCERIN 0.[address] 1 TABLET UNDER THE TONGUE EVERY 5 MINUTES NEEDED FOR CHEST PAIN (IF NO RELIEF AFTER 3RD DOSE, CONTACT 911) 25 tablet 1 08/04/2018 9 POTASSIUM CHLORIDE CR 20 MEQ tablet TAKE 1 TABLET BY MOUTH ONCE DAILY 90 tablet 05/31/2018 9 rosuvastatin 10 MG tablet Take 1 tablet (10 mg total) by mouth nightly. Prior Auth APPROVED 11-29-18 through 11-29-2019. 11/30/2018 9 SYMBICORT 80-4.5 MCG/ACT inhaler Inhale 2 puffs into the lungs 2 (two) times daily. 01/05/2018 9 trazodone 50 MG tablet Take 1 tablet by mouth as needed. 08/16/2017 0 documented as of this encounter Plan of Treatment Not on file documented as of this encounter Procedures Procedure Name Priority Date/Time Associated Diagnosis Comments USV ART REST W KENZIE LOW EXT Routine 12/19/2018 9:03 AM CHEMICAL LABORATORY TESTER PVD (peripheral vascular disease) with claudication USV AORTA ILIAC IVC DUPLEX COMP Routine 12/19/2018 9:03 AM CHEMICAL LABORATORY TESTER Symptoms involving cardiovascular system PVD (peripheral vascular disease) with claudication documented in this encounter Results * USV ART REST W KENZIE LOW EXT (12/19/2018 9:03 AM CHEMICAL LABORATORY TESTER) Anatomical Region Laterality Modality Extremity Vascular Ultraso und 12/19/2018 8:35 AM CHEMICAL LABORATORY TESTER Narrative 12/19/2018 5:40 PM CHEMICAL LABORATORY TESTER ?ARTERIAL DOPPLER - KENZIE ?BILATERAL LOWER EXTREMITY ? VASCULAR LAB Pat.Name: ??RODY CRUZ ?Pat.ID: ?[id number] ? St.Date: ?? 12/19/2018 ?Exam Time: 8:35:00 AM ? Study Type:SCOTTIE VS Arterial Doppler Legs DILEEP ??Age: ??1960,57Y ? Sex: ? FEMALE ?Sonogrphr: Elida Baldwin, RVT ? Pat. Stat.:Outpatient ? History / Clinical: Follow up PAD, claudication better; ??s/p BCIA stents 06/2016; ??balloon RCIA stent and new stent LCIA 12/06/17; ??LCEA 2014; ??PMH pad, htn, hld, dm, cva, copd, smoker; ??Prior study 06/2018 ABIs R 1.08, L 1.11, no drop post exercise Procedures: ??Doppler waveforms, Digit PPG, Systolic Pressures w/KENZIE Race: ?W ? ++++++++++++++++++++++++++++++++++++ SUMMARY: ++++++++++++++++++++++++++++++++++++ Gail KENZIE Criteria: ? >1.30 = falsely elevated, calcified vessels; ?1.00-1.29 = no signif ischemia at rest ; ?.80-.99 = mild PAD, asymptomatic; ? .50-.79 = moderate PAD, claudication; ?<.50 = severe PAD, rest pain; ?<.30 = critical PAD, necrosis, poor healing ?(Digits: ??DBI >.60 Normal; ?? <.60 Abnormal) ? (Positive Stress eval: ??KENZIE decrease of >.20 or >20% pressure drop) Right leg: ??Common Femoral waveform is triphasic, high amplitude; Popliteal triphasic, medium amplitude; ??Posterior Tibial triphasic, low amplitude with KENZIE 1.13 ; ??DP/Anterior Tibial triphasic, medium amplitude with KENZIE 1.11 . ??Digit flow by PPG is high amplitude with DBI 0.783 . Left leg: ??Common Femoral waveform is biphasic, high amplitude; Popliteal triphasic, medium amplitude; ??Posterior Tibial biphasic, low amplitude with KENZIE 1.17 ; ??DP/Anterior Tibial triphasic, medium amplitude with KENZIE 1.22 . ??Digit flow by PPG is medium amplitude with DBI 0.761 . Post toe lift exercise stress test, right KENZIE decreases .20; ??left KENZIE decreases .35. ?? Compared to previous exam done 06/2018 , there is no significant change at rest; decrease post exercise bilaterally is new (toe raises instead of ambulation). CONCLUSION: ?? KENZIE right leg 1.1, with toe index 0.783 , in the range of no ischemia and normal waveforms. KENZIE left leg 1.1, with toe index 0.761 , in the range of ??no ischemia and normal waveforms. Post exercise there is no significant drop in ankle pressure on right side and mild drop on left side. Overall unremarkable exercise stress test. Recommend follow up in 6 months or as symptoms warrant. ?? ++++++++++++++++++++++++++++++++++++ MEASUREMENTS: ++++++++++++++++++++++++++++++++++++ ?DOPPLER Left Dist Pop A ?? Dist Pop A PSV ??41.8 cm/s ? Left Dist WELL CLEANER ?? Dist WELL CLEANER PSV ?33.3 cm/s ? Left Dist BHUMI ?? Dist BHUMI PSV ?54.6 cm/s ? Left Prox KALANI ?? Prox KALANI PSV ? 101 cm/s ? Right Dist Pop A ?? Dist Pop A PSV ??60.5 cm/s ? Right Dist WELL CLEANER ?? Dist WELL CLEANER PSV ?36.6 cm/s ? Right Dist BHUMI ?? Dist BHUMI PSV ?48.6 cm/s ? Right Prox KALANI ?? Prox KALANI PSV ?90.9 cm/s ?PRESSURES Right Brachial ?? Brach P ? 92 mmHg ? Right Ankle DP ?? AnkleDP P ?102 mmHg ? Right Ankle PT ?? AnklePT P ?104 mmHg ? Right Great Toe ?? GreatToe P ?72 mmHg ? Right KENZIE PT ?? KENZIE PT ?1.13 ? Right KENZIE DP ?? KENZIE DP ?1.11 ? Right TBI ?? TBI ?0.783 ? Left Brachial ?? Brach P ? 88 mmHg ? Left Ankle DP ?? AnkleDP P ?112 mmHg ? Left Ankle PT ?? AnklePT P ?108 mmHg ? Left Great Toe ?? GreatToe P ?70 mmHg ? Left KENZIE PT ?? KENZIE PT ?1.17 ? Left KENZIE DP ?? KENZIE DP ?1.22 ? Left TBI ?? TBI ?0.761 ?STRESS 1 Minute ?? 1 Min ARM ?122 mmHg ?1 Min KENZIE ?0.934 ? 1 Min Ankle ?114 mmHg ?1 Min LT KENZIE ?0.82 ? 1 Min LT Ankle ?? 100 mmHg ? Signed 12/19/2018 05:40 PM Asa Mcnamara M.D. Procedure Note Asa Mcnamara MD - 12/19/2018 ARTERIAL DOPPLER - KENZIE BILATERAL LOWER EXTREMITY VASCULAR LAB Pat.Name: RODY CRUZ Pat.ID: [id number] .Date: 12/19/2018 Exam Time: 8:35:00 AM Study Type:SCOTTIE VS Arterial Doppler Legs DILEEP Age: 3 1960,57Y Sex: FEMALE Sonogrphr: Elida Baldwin RVT Pat. Stat.:Outpatient History / Clinical: Follow up PAD, claudication better; s/p BCIA stents 06/2016; balloon RCIA stent and new stent LCIA 12/06/17; LCEA 2014; PMH pad, htn, hld, dm, cva, copd, smoker; Prior study 06/2018 ABIs R 1.08, L 1.11, no drop post exercise Procedures: Doppler waveforms, Digit PPG, Systolic Pressures w/KENZIE Race: W ++++++++++++++++++++++++++++++++++++ SUMMARY: ++++++++++++++++++++++++++++++++++++ Gail KENZIE Criteria: >1.30 = falsely elevated, calcified vessels; 1.00-1.29 = no signif ischemia at rest ; .80-.99 = mild PAD, asymptomatic; .50-.79 = moderate PAD, claudication; <.50 = severe PAD, rest pain; <.30 = critical PAD, necrosis, poor healing (Digits: DBI >.60 Normal; <.60 Abnormal) (Positive Stress eval: KENZIE decrease of >.20 or >20% pressure drop) Right leg: Common Femoral waveform is triphasic, high amplitude; Popliteal triphasic, medium amplitude; Posterior Tibial triphasic, low amplitude with KENZIE 1.13 ; DP/Anterior Tibial triphasic, medium amplitude with KENZIE 1.11 . Digit flow by PPG is high amplitude with DBI 0.783 . Left leg: Common Femoral waveform is biphasic, high amplitude; Popliteal triphasic, medium amplitude; Posterior Tibial biphasic, low amplitude with KENZIE 1.17 ; DP/Anterior Tibial triphasic, medium amplitude with KENZIE 1.22 . Digit flow by PPG is medium amplitude with DBI 0.761 . Post toe lift exercise stress test, right KENZIE decreases .20; left KENZIE decreases .35. Compared to previous exam done 06/2018 , there is no significant change at rest; decrease post exercise bilaterally is new (toe raises instead of ambulation). CONCLUSION: KENZIE right leg 1.1, with toe index 0.783 , in the range of no ischemia and normal waveforms. KENZIE left leg 1.1, with toe index 0.761 , in the range of no ischemia and normal waveforms. Post exercise there is no significant drop in ankle pressure on right side and mild drop on left side. Overall unremarkable exercise stress test. Recommend follow up in 6 months or as symptoms warrant. ++++++++++++++++++++++++++++++++++++ MEASUREMENTS: ++++++++++++++++++++++++++++++++++++ DOPPLER Left Dist Pop A Dist Pop A PSV 41.8 cm/s Left Dist WELL CLEANER Dist WELL CLEANER PSV 33.3 cm/s Left Dist BHUMI Dist BHUMI PSV 54.6 cm/s Left Prox KALANI Prox KALANI PSV 101 cm/s Right Dist Pop A Dist Pop A PSV 60.5 cm/s Right Dist WELL CLEANER Dist WELL CLEANER PSV 36.6 cm/s Right Dist BHUMI Dist BHUMI PSV 48.6 cm/s Right Prox KALANI Prox KALANI PSV 90.9 cm/s PRESSURES Right Brachial Brach P 92 mmHg Right Ankle DP AnkleDP P 102 mmHg Right Ankle PT AnklePT P 104 mmHg Right Great Toe GreatToe P 72 mmHg Right KENZIE PT KENZIE PT 1.13 Right KENZIE DP KENZIE DP 1.11 Right TBI TBI 0.783 Left Brachial Brach P 88 mmHg Left Ankle DP AnkleDP P 112 mmHg Left Ankle PT AnklePT P 108 mmHg Left Great Toe GreatToe P 70 mmHg Left KENZIE PT KENZIE PT 1.17 Left KENZIE DP KENZIE DP 1.22 Left TBI TBI 0.761 STRESS 1 Minute 1 Min ARM 122 mmHg 1 Min KENZIE 0.934 1 Min Ankle 114 mmHg 1 Min LT KENZIE 0.82 1 Min LT Ankle 100 mmHg Signed 12/19/2018 05:40 PM Asa Mcnamara M.D. us Asa Mcnamara MD VASC Final Result * USV AORTA ILIAC IVC DUPLEX COMP (12/19/2018 9:03 AM CHEMICAL LABORATORY TESTER) Anatomical Region Laterality Modality NA Vascular Ultraso und 12/19/2018 8:0 3 AM CHEMICAL LABORATORY TESTER Narrative 12/19/2018 6:24 PM CHEMICAL LABORATORY TESTER ?[id number] DUPLEX IMAGING ? VASCULAR LAB Pat.Name: ??GELSO, RODY ?Pat.ID: ?[id number] ? St.Date: ?? 12/19/2018 ?Refer.: ??Deisi Andrews ? Exam Time: 8:03:00 AM ? Study Type:SCOTTIE VS Aorta IVC Iliac Duplex DILEEP ??Age: ??1960,57Y ? Sex: ? FEMALE ? Sonogrphr: Elida Baldwin, RVT ? Pat. Stat.:Outpatient ? History / Clinical: Follow up PAD, claudication better; ??s/p BCIA stents 06/2016; ??balloon RCIA stent and new stent LCIA 12/06/17; ??LCEA 2014; ??PMH pad, htn, hld, dm, cva, copd, smoker; ??Prior study 06/2018 RCIA stent kw[place] 235, LCIA stent kw[place] 156 Procedures: ??Qureshi scale, Color Doppler imaging, Doppler Spectral Analysis Race: ?W ? ++++++++++++++++++++++++++++++++++++ SUMMARY: ++++++++++++++++++++++++++++++++++++ Gial Stenosis Criteria: ? 50-75% = Ratio 2.0-4.0 and/or PSV 200-300; ? 75-99% = Ratio >4.0 and/or PSV >300 ? STENT Criteria: ?>50% = Ratio >1.5 and/or PSV >190; ?>80% = Ratio >3.5 and/or PSV >275 ?? Aorta-iliac duplex: ??Aorta mild plaque, bi-triphasic with normal velocity. ?? Right common iliac stented, mild to moderate plaque, biphasic with elevated PSV 275 cm/s; ?? right external iliac mild plaque, triphasic with normal velocity. Left common iliac stented, mild plaque, biphasic with elevated PSV 213 cm/s; ?? left external iliac mild plaque, biphasic with normal velocity. Compared to previous exam done 06/2018 , there is mild increase in velocity, bilateral KALANI stents. CONCLUSION: ? Right: ??Patent stent common iliac with elevated velocities (275 cm/s), suggestive of ??50-75% stenosis. ??Mild, <50% stenosis at the external iliac. Left: ??Patent stent common iliac with elevated velocities (213 cm/s) suggestive of 50-75% stenosis. Mild, <50% stenosis at the external iliac. Compared to previous exam done 06/2018 , there is mild increase in velocity, bilateral KALANI stents. ?? ++++++++++++++++++++++++++++++++++++ MEASUREMENTS: ++++++++++++++++++++++++++++++++++++ ?DOPPLER Left EIA ?? EIA PSV ?116 cm/s ? Supra AO ?? Supra AO PSV ?94 cm/s ? Juxta AO ?? Juxta AO PSV ?67 cm/s ? Dist AO ?? Dist AO PSV ? 84 cm/s ? Rt Dist External Iliac ?? Dist External I ?? 123 cm/s ? Rt Mid External Iliac ?? Mid External Il ?98 cm/s ? Rt Prox External Iliac ?? External Iliac ?112 cm/s ? Rt Prox Internal Iliac ?? Internal Iliac ?122 cm/s ? Lt Dist External Iliac ?? Lt Dist Externa ?? 119 cm/s ? Lt Mid External Iliac ?? Lt Mid External ?93 cm/s ? Lt Prox External Iliac ?? External Iliac ?116 cm/s ? Lt Prox Internal Iliac ?? Internal Iliac ?114 cm/s ? Iliac ?? Right Iliac Dis ?? 197 cm/s ? Left EIA Dist ?? EIA Dist PSV ? 119 cm/s ? Left EIA Mid ?? EIA Mid PSV ? 93.2 cm/s ? Right EIA ?? EIA PSV ?112 cm/s ? Right EIA Dist ?? EIA Dist PSV ? 123 cm/s ? Right EIA Mid ?? EIA Mid PSV ? 97.5 cm/s ?GRAFT Prox Stent LCIA STENT Prox Stent PSV ?? 213 cm/s ? Prox Stent RCIA STENT Prox Stent PSV ?? 268 cm/s ? Mid Stent LCIA STENT Mid Stent PSV ?175 cm/s ? Mid Stent RCIA STENT Mid Stent PSV ?275 cm/s ? Dist Stent LCIA STENT Dist Stent PSV ?? 170 cm/s ? Dist Stent RCIA STENT Dist Stent PSV ?? 223 cm/s ? Dist to Stent LCIA STENT Dist to Stent P ?? 196 cm/s ? Dist to Stent RCIA STENT Dist to Stent P ?? 267 cm/s ? Signed 12/19/2018 06:24 PM Asa Mcnamara M.D. Procedure Note Asa Mcnamara MD - 12/19/2018 [id number] DUPLEX IMAGING VASCULAR LAB Pat.Name: RODY CRUZ Pat.ID: [id number] .Date: 12/19/2018 Refer.MD: Deisi Andrews Exam Time: 8:03:00 AM Study Type:SCOTTIE VS Aorta IVC Iliac Duplex DILEEP Age: 3 1960,57Y Sex: FEMALE Sonogrphr: Elida Baldwin RVT Pat. Stat.:Outpatient History / Clinical: Follow up PAD, claudication better; s/p BCIA stents 06/2016; balloon RCIA stent and new stent LCIA 12/06/17; LCEA 2014; PMH pad, htn, hld, dm, cva, copd, smoker; Prior study 06/2018 RCIA stent [place] 235, LCIA stent [place] 156 Procedures: Qureshi scale, Color Doppler imaging, Doppler Spectral Analysis Race: W ++++++++++++++++++++++++++++++++++++ SUMMARY: ++++++++++++++++++++++++++++++++++++ Gail Stenosis Criteria: 50-75% = Ratio 2.0-4.0 and/or PSV 200-300; 75-99% = Ratio >4.0 and/or PSV >300 STENT Criteria: >50% = Ratio >1.5 and/or PSV >190; >80% = Ratio >3.5 and/or PSV >275 Aorta-iliac duplex: Aorta mild plaque, bi-triphasic with normal velocity. Right common iliac stented, mild to moderate plaque, biphasic with elevated PSV 275 cm/s; right external iliac mild plaque, triphasic with normal velocity. Left common iliac stented, mild plaque, biphasic with elevated PSV 213 cm/s; left external iliac mild plaque, biphasic with normal velocity. Compared to previous exam done 06/2018 , there is mild increase in velocity, bilateral KALANI stents. CONCLUSION: Right: Patent stent common iliac with elevated velocities (275 cm/s), suggestive of 50-75% stenosis. Mild, <50% stenosis at the external iliac. Left: Patent stent common iliac with elevated velocities (213 cm/s) suggestive of 50-75% stenosis. Mild, <50% stenosis at the external iliac. Compared to previous exam done 06/2018 , there is mild increase in velocity, bilateral KALANI stents. ++++++++++++++++++++++++++++++++++++ MEASUREMENTS: ++++++++++++++++++++++++++++++++++++ DOPPLER Left EIA EIA PSV 116 cm/s Supra AO Supra AO PSV 94 cm/s Juxta AO Juxta AO PSV 67 cm/s Dist AO Dist AO PSV 84 cm/s Rt Dist External Iliac Dist External I 123 cm/s Rt Mid External Iliac Mid External Il 98 cm/s Rt Prox External Iliac External Iliac 112 cm/s Rt Prox Internal Iliac Internal Iliac 122 cm/s Lt Dist External Iliac Lt Dist Externa 119 cm/s Lt Mid External Iliac Lt Mid External 93 cm/s Lt Prox External Iliac External Iliac 116 cm/s Lt Prox Internal Iliac Internal Iliac 114 cm/s Iliac Right Iliac Dis 197 cm/s Left EIA Dist EIA Dist PSV 119 cm/s Left EIA Mid EIA Mid PSV 93.2 cm/s Right EIA EIA PSV 112 cm/s Right EIA Dist EIA Dist PSV 123 cm/s Right EIA Mid EIA Mid PSV 97.5 cm/s GRAFT Prox Stent LCIA STENT Prox Stent PSV 213 cm/s Prox Stent RCIA STENT Prox Stent PSV 268 cm/s Mid Stent LCIA STENT Mid Stent PSV 175 cm/s Mid Stent RCIA STENT Mid Stent PSV 275 cm/s Dist Stent LCIA STENT Dist Stent PSV 170 cm/s Dist Stent RCIA STENT Dist Stent PSV 223 cm/s Dist to Stent LCIA STENT Dist to Stent P 196 cm/s Dist to Stent RCIA STENT Dist to Stent P 267 cm/s Signed 12/19/2018 06:24 PM Asa Mcnamara M.D. Asa Mcnamara MD VAS Final Result documented in this encounter Visit Diagnoses Diagnosis Symptoms involving cardiovascular system Other symptoms involving cardiovascular system PVD (peripheral vascular disease) with claudication (CMS/HCC) Peripheral vascular disease, unspecified documented in this encounter Care Teams Dementia Program Director Relationship Specialty Start Date End Date Deisi Andrews MD [address] [place] [address] [place] [address] PCP - General FAMILY PRACTICE 06/15/17 10/14/19 Asa Mcnamara MD [address] [address] [employer] Manager CARDIOVASCULAR DISEASE 05/15/16 documented as of this encounter
--- OUTSIDE RECORDS SUMMARY | 2024-11-12 04:46 | XMS_ITS | Encounter Summary ---
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 Name Role Phone Unavailable Primary Care Provider Unavailabl e Encounter Details Date Type Department Care Team (Late st Contact Info) Description 12/24/2015 Legacy Encounter - Labs [facility] [address] [place], [place] [id number], [place] [address] Munira Heller MD [address] [facility], SUITE Replaced by [facility] [place] [address] Social History Tobacco Use Types Packs/Day Years Used Date Smoking Tobacco: Never Assessed Sex and Gender Information Value Date Recorded Sex Assigned at Not on file Gender Identity Not on file Sexual Orientation Not on file documented as of this encounter Plan of Treatment Not on file documented as of this encounter Procedures Procedure Name Priority Date/Time Associated Diagnosis Comments COPY SENT TO: Routine 12/24/2015 11:03 AM APPLICATION PENETRATION TESTER ANCA SCREEN W/ VASCULITIDES (MPO, PR3) Routine 12/24/2015 11:03 AM APPLICATION PENETRATION TESTER EOSINOPHIL COUNT (U) Routine 12/24/2015 11:03 AM APPLICATION PENETRATION TESTER ANTINUCLEAR ANTIBODIES TITER AND PATTERN Routine 12/24/2015 11:03 AM APPLICATION PENETRATION TESTER ANTINUCLEAR ANTIBODIES TITER AND PATTERN Routine 12/24/2015 11:03 AM APPLICATION PENETRATION TESTER CHLORIDE, URINE, RANDOM Routine 12/24/2015 11:03 AM APPLICATION PENETRATION TESTER CHLORIDE, URINE, RANDOM Routine 12/24/2015 11:03 AM APPLICATION PENETRATION TESTER SODIUM, URINE RANDOM Routine 12/24/2015 11:03 AM APPLICATION PENETRATION TESTER SODIUM, URINE RANDOM Routine 12/24/2015 11:03 AM APPLICATION PENETRATION TESTER RENAL FUNCTION PANEL (RFP) Routine 12/24/2015 11:03 AM APPLICATION PENETRATION TESTER ANCA SCREEN W/ MPO AND PR3 W/ REFLEX TO TITER Routine 12/24/2015 11:03 AM APPLICATION PENETRATION TESTER COMPLEMENT C3 + C4 Routine 12/24/2015 11 :03 AM APPLICATION PENETRATION TESTER COMPLEMENT C3 + C4 Routine 12/24/2015 11 :03 AM APPLICATION PENETRATION TESTER PROTEIN ELECTROPHORESIS, URINE, RANDOM Routine 12/24/2015 11:03 AM APPLICATION PENETRATION TESTER PROTEIN ELECTROPHORESIS, URINE, RANDOM Routine 12/24/2015 11:03 AM APPLICATION PENETRATION TESTER PROTEIN ELECTROPHORESIS, URINE, RANDOM Routine 12/24/2015 11:03 AM APPLICATION PENETRATION TESTER PROTEIN ELECTROPHORESIS, URINE, RANDOM Routine 12/24/2015 11:03 AM APPLICATION PENETRATION TESTER GLOMERULAR BASEMENT MEMBRANE ANTIBODY (IGG), SERUM Routine 12/24/2015 11:03 AM APPLICATION PENETRATION TESTER DSDNA AB, SERUM Routine 12/24/2015 11:03 AM APPLICATION PENETRATION TESTER ANTINUCLEAR ANTIBODIES (TAYLOR), IFA W/ REFL TITER AND PATTERN Routine 12/24/2015 11:03 AM APPLICATION PENETRATION TESTER documented in this encounter Results * (ABNORMAL) Antinuclear Antibodies Titer And Pattern (12/24/2015 11:03 AM APPLICATION PENETRATION TESTER) TAYLOR Pattern, Serum Homogeneous EXTERNAL LAB TAYLOR, Serum 1:160(A) <1:40 titer EXTERNAL LAB Comment: ??REFERENCE RANGE for TAYLOR Titer: < 1:40 ? . . . Negative ? 1:40 - 1:80 ?? . . . Low Antibody Level > 1:80 ? . . . Elevated Antibody Level 12/24/2015 11:0 3 AM APPLICATION PENETRATION TESTER 12/24/2015 11:04 AM APPLICATION PENETRATION TESTER Munira Heller MD LAB BLOOD ORDERABLES EXTERNAL LAB * (ABNORMAL) ANCA Screen W/ Mpo And Pr3 W/ Reflex To Anca Titer (12/24/2015 11:03 AM APPLICATION PENETRATION TESTER) Neutrophil Cytoplasmic Ab (ANCA), Serum <1:20 <1:20 FIU EXTERNAL LAB ANCA Pattern, Serum No C- or P-ANCA pattern detected by IFA EXTERNAL LAB Myeloperoxidase Ab, Serum <1.0 <1.0 AI EXTERNAL LAB Comment: Autoantibodies to myeloperoxidase (MPO) are commonly associated with the following small-vessel vasculitides: microscopic polyangiitis, polyarteritis nodosa, Churg-Kristin syndrome, necrotizing and crescentic glomerulonephritis and occasionally granulomatosis with polyangiitis (Lela's). The perinuclear IFA pattern (p-ANCA) is based largely on autoantibody to myeloperoxidase which serves as the primary antigen. These autoantibodies are present in the active disease states. Proteinase 3 Ab, Serum <1.0 <1.0 AI EXTERNAL LAB Comment: Autoantibodies to proteinase-3 (ND-3) are accepted as characteristic for granulomatosis with polyangiitis (Lela's), and are detectable in 95% of the histologically proven cases. The cytoplasmic IFA pattern (c-ANCA) is based largely on autoantibody to ND-3 which serves as the primary antigen. These autoantibodies are present in the active disease state. Bactericidal permeability increasing protein IgG Ab, Serum 7.0 <10.0 U/mL EXTERNAL LAB TAYLOR, Serum Positive(A) Negative EXTERNA L LAB Comment: Myeloperoxidase Antibody and Proteinase-3 Antibody: ?? Interpretation: < 1.0 AI No Antibody Detected > or = 1.0 AI Antibody Detected BPI IgG Autoabs: This test(s) was performed using a kit that has not been cleared or approved by the FDA. The analytical performance characteristics of this test have been determined by [employer], [place], [place]. This test should not be used for diagnosis without confirmation by other medically established means. 12/24/2015 11:0 3 AM APPLICATION PENETRATION TESTER 12/24/2015 11:04 AM APPLICATION PENETRATION TESTER Munira Heller MD LAB BLOOD ORDERABLES Performing Organization Address [facility] Co de Phone Number EXTERNAL LAB * ANCA Vasculitides (12/24/2015 11:03 AM APPLICATION PENETRATION TESTER) Myeloperoxidase Ab, Serum <1.0 AI EXTERNAL LAB Comment: ? Value ?Interpretation ? ----- ? <1.0 ? No Antibody Detected > or = 1.0 ?? Antibody Detected Autoantibodies to myeloperoxidase (MPO) are commonly associated with the following small-vessel vasculitides: microscopic polyangitis, polyarteritis nodosa, Churg-Kristin syndrome, necrotizing and crescentic glomerulonephritis and occasionally Wegeners granulomatosis. The perinuclear IFA pattern, (p-ANCA) is based largely on autoantibody to myeloperoxidase which serves as the primary antigen. These autoantibodies are present in active disease state. Proteinase 3 Ab, Serum <1.0 AI EXTERNAL LAB Comment: ? Value ?Interpretation ? ----- ? <1.0 ? No Antibody Detected > or = 1.0 ?? Antibody Detected Autoantibodies to proteinase-3 (ND-3) are accepted as characteristic for granulomatosis with polyangiitis (Lela's), and are detectable in 95% of the histologically proven cases. The cytoplasmic IFA pattern,(c-ANCA), is based largely on autoantibody to ND-3 which serves as the primary antigen. These autoantibodies are present in active disease state. 12/24/2015 11:0 3 AM APPLICATION PENETRATION TESTER 12/24/2015 11:04 AM APPLICATION PENETRATION TESTER Munira Heller MD LAB BLOOD ORDERABLES Performing Organization Address City/[facility]/ZIP Co de Phone Number EXTERNAL LAB * DNA (DS) Antibody (12/24/2015 11:03 AM APPLICATION PENETRATION TESTER) DNA double strand Ab, Serum <1 IU/mL EXTERNAL LAB Comment: ? IU/mL ? Interpretation < or = 4 ?Negative ? 5-9 ? Indeterminate > or = 10 ?? Positive 12/24/2015 11:0 3 AM APPLICATION PENETRATION TESTER 12/24/2015 11:04 AM APPLICATION PENETRATION TESTER Munira Heller MD LAB BLOOD ORDERABLES Performing Organization Address [facility] de Phone Number EXTERNAL LAB * (ABNORMAL) Antinuclear Antibodies Titer And Pattern (12/24/2015 11:03 AM APPLICATION PENETRATION TESTER) TAYLOR Pattern, Serum HOMOGENEOU S(A) EXTERNAL LAB TAYLOR, Serum 1:40(H) titer EXTERNAL LAB Comment: ?Reference Range <1:40 ?Negative ?1:40-1:80 ?Low Antibody Level >1:80 ?Elevated Antibody Level 12/24/2015 11:0 3 AM APPLICATION PENETRATION TESTER 12/24/2015 11:04 AM APPLICATION PENETRATION TESTER Munira Heller MD LAB BLOOD ORDERABLES Performing Organization Address [facility] [[email or web address]] de Phone Number EXTERNAL LAB * (ABNORMAL) TAYLOR Screen Ifa W/ Refl Titer And Pattern (12/24/2015 11:03 AM APPLICATION PENETRATION TESTER) TAYLOR, Serum POSITIVE(A) NEGATIVE EXTERNAL LAB 12/24/2015 11:0 3 AM APPLICATION PENETRATION TESTER 12/24/2015 11:04 AM APPLICATION PENETRATION TESTER Munira Heller MD LAB BLOOD ORDERABLES Performing Organization Address City/[facility] Co de Phone Number EXTERNAL LAB * Eosinophil Count (U) (12/24/2015 11:03 AM APPLICATION PENETRATION TESTER) Eosinophils/100 leukocytes, Urine sediment 0 See Note: % eos EXTERNAL LAB Comment: Reference Range: No Normals Established Few WBC seen. No eosinophils noted. 12/24/2015 11:0 3 AM APPLICATION PENETRATION TESTER 12/24/2015 11:04 AM APPLICATION PENETRATION TESTER Munira Heller MD LAB BLOOD ORDERABLES Performing Organization Address [facility] Co de Phone Number EXTERNAL LAB * Glomerular Basement Membrane Antibody (IGG) (12/24/2015 11:03 AM APPLICATION PENETRATION TESTER) Basement membrane IgG Ab, Serum <1.0 <1.0 AI EXTERNAL LAB Comment: Interpretation: < 1.0 AI No Antibody Detected > OR = 1.0 AI Antibody Detected 12/24/2015 11:0 3 AM APPLICATION PENETRATION TESTER 12/24/2015 11:04 AM APPLICATION PENETRATION TESTER Munira Heller MD LAB BLOOD ORDERABLES Performing Organization Address [facility] Co de Phone Number EXTERNAL LAB * Renal Function Panel (12/24/2015 11:03 AM APPLICATION PENETRATION TESTER) Glucose, Serum/Plasma 78 65 - 99 mg/dL EXTERNAL LAB Comment:Fasting reference in terval Urea nitrogen, Serum/Plasma (BUN) 19 7 - 25 mg/dL EXTERNAL LAB Creatinine, Serum/Plasma 0.75 0.50 - 1.05 mg/dL EXTERNAL LAB Comment: For patients >49 years of age, the reference limit for Creatinine is approximately 13% higher for people identified as -Georgian. eGFR, non 91 > OR = 60 mL/min/1 .73m2 EXTERNAL LAB eGFR, 105 > OR = 60 mL/min/1 .73m2 EXTERNAL LAB Urea nitrogen/Creatini ne, Serum/Plasma NOT APPLICABLE 6 - 22 (calc) EXTERNAL LAB Sodium, Serum/Plasma 139 135 - 146 mmol/L EXTERNAL LAB Potassium, Serum/Plasma 4.1 3.5 - 5.3 mmol/L EXTERNAL LAB Chloride, Serum/Plasma 104 98 - 110 mmol/L EXTERNAL LAB Carbon dioxide CO2), total, Serum/Plasma 25 19 - 30 mmol/L EXTERNAL LAB Calcium, Serum/Plasma 9.9 8.6 - 10.4 mg/dL EXTERNAL LAB Phosphate, Serum/Plasma 3.7 2.5 - 4.5 mg/dL EXTERNAL LAB Albumin, Serum/Plasma 4.3 3.6 - 5.1 g/dL EXTERNAL LAB 12/24/2015 11:0 3 AM APPLICATION PENETRATION TESTER 12/24/2015 11:04 AM APPLICATION PENETRATION TESTER Munira Heller MD LAB BLOOD ORDERABLES Performing Organization Address City/[facility] Co de Phone Number EXTERNAL LAB * Protein Total And Protein Electrophoresis (Urine) (12/24/2015 11:03 AM APPLICATION PENETRATION TESTER) Albumin/Protein, total 71 % EXTERNAL LAB Alpha 1 globulin/Protein, total 2 % EXTERNAL LAB Alpha 2 globulin/Protein, total 4 % EXTERNAL LAB Beta globulin/Protein, total 12 % EXTERNAL LAB Gamma globulin/Protein, total 12 % EXTERNAL LAB Protein, monoclonal, Urine CANCELED NONE DETECTED mg/dL EXTERNAL LAB Comment:Result canceled by t he ancillary. Protein, monoclonal band 2, Urine CANCELED NONE DETECTED mg/dL EXTERNAL LAB Comment:Result canceled by t he ancillary. Protein, monoclonal band 3, Urine CANCELED NONE DETECTED mg/dL EXTERNAL LAB Comment:Result canceled by t he ancillary. Interpretation EXTERNAL LAB Comment: Agarose electrophoresis of urine reveals albumin and various globulin fractions. ??No abnormal protein is observed. 12/24/2015 11:0 3 AM APPLICATION PENETRATION TESTER 12/24/2015 11:04 AM APPLICATION PENETRATION TESTER Munira Heller MD LAB URINE ORDERABLES EXTERNAL LAB * (ABNORMAL) Protein Total And Protein Electrophoresis (Urine) (12/24/2015 11:03 AM APPLICATION PENETRATION TESTER) Creatinine, Urine 235 20 - 320 mg/dL EXTERNAL LAB Protein/Creatin ine, Urine 451(H) 21 - 161 mg/g creat EXTERNAL LAB Protein, Urine 106(H) 5 - 24 mg/dL EXTERNAL LAB 12/24/2015 11:0 3 AM APPLICATION PENETRATION TESTER 12/24/2015 11:04 AM APPLICATION PENETRATION TESTER Munira Heller MD LAB URINE ORDERABLES Performing Organization Address City/[facility]/ZIP Co de Phone Number EXTERNAL LAB * (ABNORMAL) Protein Total And Protein Electrophoresis (Urine) (12/24/2015 11:03 AM APPLICATION PENETRATION TESTER) Albumin, Serum/Plasma 4.2 3.8 - 4.8 g/dL EXTERNAL LAB Alpha 1 globulin, Serum/Plasma 0.3 0.2 - 0.3 g/dL EXTERNAL LAB Alpha 2 globulin, Serum/Plasma 1.0(H) 0.5 - 0.9 g/dL EXTERNAL LAB Beta 1 globulin, Serum/Plasma 0.6 0.4 - 0.6 g/dL EXTERNAL LAB Beta 2 globulin, Serum/Plasma 0.5 0.2 - 0.5 g/dL EXTERNAL LAB Gamma globulin, Serum/Plasma 1.2 0.8 - 1.7 g/dL EXTERNAL LAB Protein, monoclonal band 1, Serum/Plasma CANCELED NONE DETECTED g/dL EXTERNAL LAB Comment:Result canceled by t he ancillary. Protein, monoclonal band 2, Serum/Plasma CANCELED NONE DETECTED g/dL EXTERNAL LAB Comment:Result canceled by t he ancillary. Protein, monoclonal band 3, Serum/Plasma CANCELED NONE DETECTED g/dL EXTERNAL LAB Comment:Result canceled by t he ancillary. Protein Fractions, Serum/Plasma EXTERNAL LAB Comment:No restricted band ( M-spike) seen. 12/24/2015 11:0 3 AM APPLICATION PENETRATION TESTER 12/24/2015 11:04 AM APPLICATION PENETRATION TESTER Munira Heller MD LAB URINE ORDERABLES EXTERNAL LAB * Protein Total And Protein Electrophoresis (Urine) (12/24/2015 11:03 AM APPLICATION PENETRATION TESTER) Protein, Serum/Plasma 7.7 6.1 - 8.1 g/dL EXTERNAL LAB 12/24/2015 11:0 3 AM APPLICATION PENETRATION TESTER 12/24/2015 11:04 AM APPLICATION PENETRATION TESTER Munira Heller MD LAB URINE ORDERABLES Performing Organization Address [facility] Co de Phone Number EXTERNAL LAB * Complement Comp C3 + C4 (12/24/2015 11:03 AM APPLICATION PENETRATION TESTER) Complement C4, Serum/Plasma 36 16 - 47 mg/dL EXTERNAL LAB 12/24/2015 11:0 3 AM APPLICATION PENETRATION TESTER 12/24/2015 11:04 AM APPLICATION PENETRATION TESTER Munira Heller MD LAB BLOOD ORDERABLES Performing Organization Address [facility] [[email or web address]] de Phone Number EXTERNAL LAB * (ABNORMAL) Complement Comp C3 + C4 (12/24/2015 11:03 AM APPLICATION PENETRATION TESTER) Complement C3, Serum/Plasma 183(H) 90 - 180 mg/dL EXTERNAL LAB 12/24/2015 11:0 3 AM APPLICATION PENETRATION TESTER 12/24/2015 11:04 AM APPLICATION PENETRATION TESTER Munira Heller MD LAB BLOOD ORDERABLES Performing Organization Address [facility] Co de Phone Number EXTERNAL LAB * Sodium, Urine Random (12/24/2015 11:03 AM APPLICATION PENETRATION TESTER) Creatinine, Urine 235 20 - 320 mg/dL EXTERNAL LAB 12/24/2015 11:0 3 AM APPLICATION PENETRATION TESTER 12/24/2015 11:04 AM APPLICATION PENETRATION TESTER Munira Heller MD LAB URINE ORDERABLES Performing Organization Address [facility] Co de Phone Number EXTERNAL LAB * (ABNORMAL) Sodium, Urine Random (12/24/2015 11:03 AM APPLICATION PENETRATION TESTER) Sodium/Creatini ne, Urine 16(L) 28 - 280 mmol/g creat EXTERNAL LAB Sodium, Urine 37 28 - 272 mmol/L EXTERNAL LAB 12/24/2015 11:0 3 AM APPLICATION PENETRATION TESTER 12/24/2015 11:04 AM APPLICATION PENETRATION TESTER Munira Heller MD LAB URINE ORDERABLES Performing Organization Address [facility] [[email or web address]] de Phone Number EXTERNAL LAB * Chloride, Urine Random (12/24/2015 11:03 AM APPLICATION PENETRATION TESTER) Creatinine, Urine 235 20 - 320 mg/dL EXTERNAL LAB 12/24/2015 11:0 3 AM APPLICATION PENETRATION TESTER 12/24/2015 11:04 AM APPLICATION PENETRATION TESTER Munira Heller MD LAB URINE ORDERABLES Performing Organization Address [facility] Co de Phone Number EXTERNAL LAB * (ABNORMAL) Chloride, Urine Random (12/24/2015 11:03 AM APPLICATION PENETRATION TESTER) Chloride/Creati nine, Urine 27(L) 38 - 318 mmol/g creat EXTERNAL LAB Chloride, Urine 64 32 - 290 mmol/L EXTERNAL LAB 12/24/2015 11:0 3 AM APPLICATION PENETRATION TESTER 12/24/2015 11:04 AM APPLICATION PENETRATION TESTER Munira Heller MD LAB URINE ORDERABLES Performing Organization Address [facility] [[email or web address]] de Phone Number EXTERNAL LAB * Copy Sent To: (12/24/2015 11:03 AM APPLICATION PENETRATION TESTER) COPY(IES) SENT TO: EXTERNAL LAB Comment: ?[facility] ?[address] ?[place] [address] 12/24/2015 11:0 3 AM APPLICATION PENETRATION TESTER 12/24/2015 11:04 AM APPLICATION PENETRATION TESTER Munira Heller MD LAB BLOOD ORDERABLES Performing Organization Address [facility] [[email or web address]] de Phone Number EXTERNAL LAB documented in this encounter Visit Diagnoses Not on filedocumented in this encounter
--- OUTSIDE RECORDS SUMMARY | 2024-11-12 04:46 | XMS_ITS | Encounter Summary ---
Author Organization [facility] - [facility] Address [address] [facility]. [place], [place] [id number] [place] [address] Care Team Providers Care Pathology Tech Name Role Phone Asa Mcnamara MD Unavailable [phone] Neva Holden MD Primary Care Provider [phone] Reason for Visit * Reason Comments Follow Up left foot wart area feeling better and xray results * Consultation/Treatment (Routine) - Closed Specialty Diagnoses / Procedures Referred By Contac t Referred To Contact [employer] Associate - Foot & Ankle Surgery / PODIATRY Diagnoses wart/callus left Procedures NEW PATIENT Neva Holden MD . [facility] [id number] [address] Phone: tel: fax: Annie Jaquez DPM [address] [place] [address] Phone: tel: fax: Referral ID Status Reason Start Date Expiration Date Visits Re quested Visits Authorized [id number] Closed 12/06/2019 12/06/2020 99 99 Encounter Details Date Type Department Care Team (Late st Contact Info) Description 02/22/2020 11:20 AM CDT Office Visit [facility] - [address] [address] Annie Jaquez DPM [address] [place] [phone] Follow Up (left foot wart area feeling better and xray results ) Social History Tobacco Use Types Packs/Day Years Used Date Smoking Tobacco: Every Day Cigarettes Smokeless Tobacco: Never Comments:1 pk day Alcohol Use Standard Drinks/Week Comments No 0 (1 standard drink = 0.6 oz pur e alcohol) Comments Unknown Sex and Gender Information Value Date Recorded Sex Assigned at Female 12/06/2019 3:36 PM KENNEL SUPERVISOR Legal Sex Female 5:20 PM CDT Gender Identity Female 12/06/2019 3:36 PM KENNEL SUPERVISOR Sexual Orientation Straight 12/06/2019 3: 36 PM KENNEL SUPERVISOR Occupation Industry Job Start Date Job [...] Reading Time Taken Comments Blood Pressure 138/76 02/22/2020 11:14 AM CDT Pulse - - Temperature - - Respiratory Rate - - Oxygen Saturation - - Inhaled Oxygen Concentration - - Weight 113.9 kg (251 lb) 02/22/2020 11:14 AM CDT Height 157.5 cm (5' 2 ) 02/22/2020 11:14 AM CDT Body Mass Index 45.91 02/22/2020 11:14 AM CDT documented in this encounter Progress Notes * Annie Jaquez DPM - 02/22/2020 11:20 AM CDT Podiatry Visit Form Reason for Visit: Follow Up (left foot wart area feeling better and xray results ) History of Present Illness: Patient states that she is still having some pain underneath the ball of the left foot underneath the fifth metatarsal area where the callus is located. Also she wants to go ahead and have the soft tissue mass on the medial left great toe where she had a skin graft applied removed in the near future. Medications: Current Outpatient Medications: ??? albuterol sulfate [...] Disp: , Rfl: ??? vitamin D2, ergocalciferol, 84671 UNITS capsule, Take 50,000 Units by mouth every 7 days., Disp: , Rfl: Allergies Allergen Reactions ??? Wasp Venom Protein Anaphylaxis ??? Codeine Nausea and Vomiting ??? Haloperidol Seizure ??? Penicillins Redness ??? Resperal-Dm [[id number]] Seizure ??? Simvastatin Other (see comment) Cant [...] h/o Inspection: Porokeratotic lesion plantar fifth MTPJ left foot. Pain palpation plantar fifth MTPJ left foot. There is a large fleshy soft tissue mass on the medial aspect of each IPJ left foot where she had the previous skin graft applied. X-ray: X-ray does show a slightly plantar prominent fifth metatarsal head with bowing of the fifth metatarsal. Diagnoses/Impression: 1. 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 Porokeratosis 3. Mass of soft tissue of foot Recommendations and Plan: Treatment options were discussed with the patient today. At this point we will put her on the surgical list and we will get her scheduled for surgery for after March 31 when elective surgeries are opened up again. 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 [address] [place] [address] Stephen Hydraulic Tester CARDIOVASCULAR DISEASE 05/15/16 documented as of this encounter
--- OUTSIDE RECORDS SUMMARY | 2024-11-12 04:46 | XMS_ITS | Encounter Summary ---
Author Organization [facility] Address [address] [facility] [place] [address] [place] [address] Care Team Providers Care Wood Furniture Assembler Name Role Phone Asa Mcnamara MD Unavailable [phone] Deisi Andrews MD Primary Care Provider [phone] Reason for Visit * Reason Onset Date Comments Prior Authorization 01/27/2019 Alva Rupali or Auth for Ezetimibe 10mg has been APPROVED from 01-27-19 through 01-28-2020. Encounter Details Date Type Department Care Team (Late st Contact Info) Description 01/27/2019 Telephone [facility] [address] [place] [address] Asa Mcnamara MD [facility]. [facility] [address] [place], [place] [id number] Prior Authorization (Alva Prior Auth for Ezetimibe 10mg has been APPROVED from 01-27-19 through 01-28-2020.) Social History Tobacco Use Types Packs/Day Years Used Date Smoking Tobacco: Every Day Cigarettes Smokeless Tobacco: Never Comments:1 pk day Alcohol Use Standard Drinks/Week Comments No 0 (1 standard drink = 0.6 oz pur e alcohol) Comments Unknown Sex and Gender Information Value Date Recorded Sex Assigned at Female 12/06/2019 3:36 PM BUSHEL WORKER Legal Sex Female 5:20 PM CDT Gender Identity Female 12/06/2019 3:36 PM BUSHEL WORKER Sexual Orientation Straight 12/06/2019 3: 36 PM BUSHEL WORKER Occupation Industry Job Start Date Job End Date Not on file Not on file Not on file Not on file documented as of this encounter Progress Notes * JOSE Estrada - 01/27/2019 3:02 PM CDT Alva Prior Auth for Ezetimibe 10mg has been APPROVED from 01-27-19 through 01-28-2020. documented in this encounter Plan of Treatment Not on file documented as of this encounter Visit Diagnoses Not on filedocumented in this encounter Care Teams Wood Furniture Assembler Relationship Specialty Start Date End Date Deisi Andrews MD [address] [place] [address] [place] [address] PCP - General FAMILY PRACTICE 06/15/17 10/14/19 Asa Mcnamara MD [facility] [address] [place] [address] [place] Product Ambassador CARDIOVASCULAR DISEASE 05/15/16 documented as of this encounter
--- OUTSIDE RECORDS SUMMARY | 2024-11-12 04:46 | XMS_ITS | Encounter Summary ---
Author Organization [facility] Address [facility] [place] [address] [place] [address] Care Team Providers Care Assembler Semiconductor Name Role Phone Asa Mcnamara MD Unavailable [phone] Deisi Andrews MD Primary Care Provider [phone] Encounter Details Date Type Department Care Team (Late st Contact Info) Description 12/19/2018 7:45 AM CABLE ARMORER Hospital Encounter [facility] [address] [place], [place] [id number] Asa Mcnamara MD Three [facility]. [facility] [address] [place], [place] [id number] Discharge Disposition: Home or Self Care (Routine Discharge) Social History Tobacco Use Types Packs/Day Years Used Date Smoking Tobacco: Every Day Cigarettes Smokeless Tobacco: Never Comments:1 pk day Alcohol Use Standard Drinks/Week Comments No 0 (1 standard drink = 0.6 oz pur e alcohol) Comments Unknown Sex and Gender Information Value Date Recorded Sex Assigned at Female 12/06/2019 3:36 PM CABLE ARMORER Legal Sex Female 5:20 PM CDT Gender Identity Female 12/06/2019 3:36 PM CABLE ARMORER Sexual Orientation Straight 12/06/2019 3: 36 PM CABLE ARMORER Occupation Industry Job Start Date Job End [...] 75 MG tabletIndications :PVD (peripheral vascular disease) (CMS/[facility]) Take 1 tablet (75 mg total) [...] Procedure Name Priority Date/Time Associated Diagnosis Comments BASIC METABOLIC PANEL Routine 12/19/2018 7:52 AM CABLE ARMORER Mixed hyperlipidemia LIPID PANEL Routine 12/19/2018 7:52 AM CABLE ARMORER Mixed hyperlipidemia documented in this encounter Results * (ABNORMAL) BASIC METABOLIC PANEL (12/19/2018 7:52 AM CABLE ARMORER) GLUCOSE 140(H) 70 - 99 MG/DL 12/19/2018 8:31 AM [facility] BUN 23(H) 7 - 18 MG/DL 12/19/2018 8:31 AM [facility] CREATININE S/P/B 0.86 0.55 - 1.02 MG/DL 12/19/2018 8:31 AM [facility] SODIUM S/P/B 138 136 - 145 MMOL/L 12/19/2018 8:31 AM [facility] POTASSIUM S/P/B 3.8 3.5 - 5.1 MMOL/L 12/19/2018 8:31 AM [facility] CHLORIDE S/P/B 109(H) 100 - 108 MMOL/L 12/19/2018 8:31 AM [facility] CO2 21.7 21 - 32 MMOL/L 12/19/2018 8:31 AM [facility] CALCIUM S/P/B 8.5 8.5 - 10.1 MG/DL 12/19/2018 8:31 AM [facility] ANION GAP 11.1 8 - 20 MMOL/L 12/19/2018 8:31 AM [facility] BUN CREATININE RATIO 26.8(H) 6 - 26 12/19/2018 8:31 AM [facility] EGFR NON-AFR. AMER. 76(L) >90 ML/MIN/1.7 3 M2 12/19/2018 8:31 AM [facility] EGFR AFR. AMER. 88(L) >90 ML/MIN/1.7 3 M2 12/19/2018 8:31 AM [facility] Comment: NOTE: eGFR is not calculated for patients <18 years of age. This is an estimated GFR (CKD EPI) and should not be used for calculating drug doses. 12/19/2018 7:52 AM CABLE ARMORER Asa Mcnamara MD LABORATORY Final Result [facility] [address] [place] [address], * (ABNORMAL) LIPID PANEL (12/19/2018 7:52 AM CABLE ARMORER) CHOLESTEROL 173 <200 MG/DL 12/19/2018 8:31 AM [facility] TRIGLYCERIDES 155(H) <150 MG/DL 12/19/2018 8:31 AM [facility] HDL 44 >40.0 MG/DL 12/19/2018 8:31 AM [facility] LDL (CALCULATED) 98 <100 MG/DL 12/19/2018 8:31 AM [facility] NON HDL CHOLESTEROL 129 <130 MG/DL 12/19/2018 8:31 AM [facility] CHOL/HDL RATIO 3.9 0.0 - 4.5 12/19/2018 8:31 AM [facility] VLDL CALCULATION 31 5 - 55 MG/DL 12/19/2018 8:31 AM [facility] LIPID INTERPRETATION 12/19/2018 8:31 AM [facility] Comment: NIH CONCENSUS REPORT RECOMMENDATIONS: ?ADULT [...] ?LDL ? >=160 ?>=130 12/19/2018 7:52 AM CABLE ARMORER Asa Mcnamara MD LABORATORY Final Result Performing Organization Address City/[facility] Co de Phone Number [facility] [address] [place] [address], documented in this encounter Visit Diagnoses Diagnosis Mixed hyperlipidemia documented in this encounter Care Teams Assembler Semiconductor Relationship Specialty Start Date End Date Deisi Andrews MD [address] [place] [address] PCP - General FAMILY PRACTICE 06/15/17 10/14/19 Asa Mcnamara MD [facility]. [facility] [address] [place] [address] Stephen Band And Cuff Cutter CARDIOVASCULAR DISEASE 05/15/16 documented as of this encounter
--- OUTSIDE RECORDS SUMMARY | 2024-11-12 04:46 | XMS_ITS | Encounter Summary ---
Author Organization [facility] Address [facility] [place] [address] [place] [address] Care Team Providers Care Out And Out Cigar Maker Hand Name Role Phone Asa Mcnamara MD Unavailable [phone] Neva Holden MD Primary Care Provider [phone] Encounter Details Date Type Department Care Team (Late st Contact Info) Description 07/03/2020 [facility] at [address] [address] Rafael Thakur MA Social History Tobacco Use Types Packs/Day Years Used Date Smoking Tobacco: Every Day Cigarettes Smokeless Tobacco: Never Comments:1 pk day Alcohol Use Standard Drinks/Week Comments No 0 (1 standard drink = 0.6 oz pur e alcohol) Comments Unknown Sex and Gender Information Value Date Recorded Sex Assigned at Female 12/06/2019 3:36 PM BUILDING RENTAL SUPERINTENDENT Legal Sex Female 5:20 PM CDT Gender Identity Female 12/06/2019 3:36 PM BUILDING RENTAL SUPERINTENDENT Sexual Orientation Straight 12/06/2019 3: 36 PM BUILDING RENTAL SUPERINTENDENT Occupation Industry Job Start Date Job End [...] Progress Notes * Kaylee Raza PA-C - 07/03/2020 10:56 AM CDT Labs reviewed. No acute concerns. Continue plan as discussed on 07/01 documented in this encounter Plan of Treatment Not on file documented as of this encounter Procedures Procedure Name Priority Date/Time Associated Diagnosis Comments COMPREHENSIVE METABOLIC PANEL Routine 05/02/2020 HEMOGLOBIN, GLYCOSYLATED Routine 05/02/2020 documented in this encounter Results * HEMOGLOBIN, GLYCOSYLATED (05/02/2020) HGB A1C 7.6 % 05/02/2020 us Doc [facility] LABORATORY Final Result * (ABNORMAL) COMPREHENSIVE METABOLIC PANEL (05/02/2020) SODIUM S/P/B 142 POTASSIUM S/P/B 4.3 CO2 26 CHLORIDE S/P/B 102 GLUCOSE 150 mg/dL CALCIUM S/P/B 9.0 BUN 15 CREATININE S/P/B 0.69 0.5 - 1.0 EGFR AFR. AMER. 121(A) <=90 EGFR NON-AFR. AMER. 105(A) <=90 ALKALINE PHOSPHATASE S/P/B 96 ALT 18 AST 17 BILIRUBIN TOTAL S/P/B 0.3 ALBUMIN S/P/B 4.2 3.5 - 5.0 TOTAL PROTEIN S/P/B 6.5 GLOBULIN 2.3 05/02/2020 us Doc [facility] LABORATORY Final Result documented in this encounter Visit Diagnoses Not on filedocumented in this encounter Care Teams Out And Out Cigar Maker Hand Relationship Specialty Start Date End Date Neva Holden MD . [facility] [address] [place] [address] PCP - General FAMILY PRACTICE 02/14/20 Asa Mcnamara MD Three [facility]. [facility] [address] [place] [address] Rufe Hydraulic Tester CARDIOVASCULAR DISEASE 05/15/16 documented as of this encounter
--- OUTSIDE RECORDS SUMMARY | 2024-11-12 04:46 | XMS_ITS | Encounter Summary ---
Author Organization [facility] Address [facility]6 [facility]. [place], [place] [address] [place] [address] Care Team Providers Care Live Study Manager Name Role Phone Asa Mcnamara MD Unavailable [phone] Neva Holden MD Primary Care Provider [phone] Encounter Details Date Type Department Care Team (Latest Contact Info) Description 11/20/2019 Scan HEALTH INFO [facility] Scanned, Documents Social History Tobacco Use Types Packs/Day Years Used Date Smoking Tobacco: Every Day Cigarettes Smokeless Tobacco: Never Comments:1 pk day Alcohol Use Standard Drinks/Week Comments No 0 (1 standard drink = 0.6 oz pur e alcohol) Comments Unknown Sex and Gender Information Value Date Recorded Sex Assigned at Female 12/06/2019 3:36 PM PRESALES ENGINEER Legal Sex Female 5:20 PM CDT Gender Identity Female 12/06/2019 3:36 PM PRESALES ENGINEER Sexual Orientation Straight 12/06/2019 3: 36 PM PRESALES ENGINEER Occupation Industry Job Start Date Job End Date Not on file Not on file Not on file Not on file documented as of this encounter Plan of Treatment Not on file documented as of this encounter Visit Diagnoses Not on filedocumented in this encounter Care Teams Live Study Manager Relationship Specialty Start Date End Date Neva Holden MD . [facility] [address] [place] [address] PCP - General FAMILY PRACTICE 10/15/19 12/05/19 Asa Mcnamara MD [address] [facility]. [facility] [address] [place] [address] [place]out Director Of Safety CARDIOVASCULAR DISEASE 05/15/16 documented as of this encounter
--- OUTSIDE RECORDS SUMMARY | 2024-11-12 04:46 | XMS_ITS | Encounter Summary ---
Author Organization [facility] Address [facility]6 [facility] [place] [address] [place] [address] Care Team Providers Care Experimental Plastics Fabricator Name Role Phone Asa Mcnamara MD Unavailable [phone] Deisi Andrews MD Primary Care Provider [phone] Reason for Visit * Reason Comments Peripheral Vascular Disease 6 mo fu Encounter Details Date Type Department Care Team (Late st Contact Info) Description 07/26/2019 11:00 AM CDT Office Visit [facility] at [facility], [facility] [address] [place], [place] [phone] Asa Mcnamara MD [facility]. [facility] [address] [place], [place] [id number] Peripheral Vascular Disease (6 mo fu ) Social History Tobacco Use Types Packs/Day Years Used Date Smoking Tobacco: Every Day Cigarettes Smokeless Tobacco: Never Comments:1 pk day Alcohol Use Standard Drinks/Week Comments No 0 (1 standard drink = 0.6 oz pur e alcohol) Comments Unknown Sex and Gender Information Value Date Recorded Sex Assigned at Female 12/06/2019 3:36 PM CALCULUS TEACHER Legal Sex Female 5:20 PM CDT Gender Identity Female 12/06/2019 3:36 PM CALCULUS TEACHER Sexual Orientation Straight 12/06/2019 3: 36 PM CALCULUS TEACHER Occupation Industry Job Start Date Job End Date Not on file Not on file Not on file Not on file documented as of this encounter Last Filed Vital Signs Vital Sign Reading Time Taken Comments Blood Pressure 130/80 07/26/2019 12:52 PM CDT re taken by Pulse 83 07/26/2019 11:37 AM CDT Temperature - - Respiratory Rate - - Oxygen Saturation 96% 07/26/2019 11:37 AM CDT Inhaled Oxygen Concentration - - Weight 93.4 kg (206 lb) 07/26/2019 11:37 AM CDT Height 160 cm (5' 3 ) 07/26/2019 11:37 AM CDT Body Mass Index 36.49 07/26/2019 11:37 AM CDT documented in this encounter Patient Instructions * Patient Instructions* eRnan Monsalve Rosa - 07/26/2019 11:00 AM CDT Images from the original note were not included. Patient Education Patient Education Peripheral Artery Disease and Claudication The Basics Written [facility] the [facility] What is peripheral artery disease???--??Peripheral artery disease [...] process is complete. This topic retrieved from [employer] on: April 05, 2019. Topic 02699 Version 8.0 Release: 27.2.3 - C27.145 ?2019??[employer] and/or its affiliates.??All rights reserved. figure 1: Peripheral artery disease Graphic 92233 Version 6.0 Consumer Information Use and Disclaimer [...] that is right for you.The use of [employer] content is governed by the [employer] Terms of Use. ??2019 [employer]. All rights reserved. Copyright ?2019??[employer] and/or its affiliates.??All rights reserved. documented in this encounter Progress Notes * Asa Mcnamara MD - 07/26/2019 11:00 AM CDT Chief Complaint: Peripheral Vascular Disease (6 mo fu ) History of Present Illness: Ms. Zaidi is a pleasant 58-year-old female with type 2 diabetes mellitus, hypertension and peripheral vascular disease. She had endovascular intervention of bilateral iliac arteries in November 2017. She underwent colonoscopy in February this year for blood in the stools. Cilostazol and clopidogrel were stopped before the procedure. For some reason, she never restarted those medications. She is not complaining of blood in the stools anymore. Overall, she denies any significant change in symptoms. She continues to report pain in her legs with walking. She is not able to walk more than 50 feet. Shehas to stop because of bilateral calf, thigh and buttock pain. She does not think symptoms have gotten any worse over the last 6 months. No history of rest pain or nonhealing ulcers. She continues tosmoke, she is down to half a pack a day. She had briefly quit smoking earlier this year. Functionalcapacity is very limited. She also reports dyspnea [...] proportion to the severity of disease. She has been off cilostazol for several months now. She is also not taking clopidogrel. Given her history of blood in the stools, I believe it is reasonable to continue with aspirin monotherapy. I have ordered repeat CBC. I advised her to restart cilostazol 100 mg twice daily. Counseled about regular exercise. Counseled about quitting smoking. She is in the process of switching her insurance. If that happens, I will repeat KENZIE and duplex studies at our facility at the end of this year. She will benefit from aggressi ve risk factor modification. Blood pressure is well controlled. She is on high- dose rosuvastatin and Zetia. She is also on fenofibrate and fish oil supplements. Ms. Zaidi had left carotid endarterectomy in 2014. Follow-up carotid duplex shows moderate disease in the right ICA, stable compared to last year. We will continue with clinical follow-up and repeat duplex in 1-2 years. She appears stable from a heart failure standpoint. Her weight has remained stable. She has significant history of smoking and likely COPD. Shortness of breath is also due to underlying lung disease.Continue furosemide at the current dose. Recheck BMP. ?? It has been my pleasure to [...] AM ? Medications: Current Outpatient Medications: ??? furosemide 40 MG tablet, Take 1 tablet (40 mg total) by mouth daily., Disp: 30 tablet, Rfl: 3 ??? potassium chloride CR 20 MEQ tablet, Take 1 tablet (20 mEq total) by mouth daily., Disp: 30 tablet, Rfl: 3 ??? albuterol sulfate HFA (VENTOLIN HFA) 108 [...] by mouth daily., Disp: , Rfl: ??? aspirin 81 MG tablet, Take 1 tablet (81 mg total) by mouth daily., Disp: , Rfl: ??? cilostazol 100 MG tablet, Take 1 tablet (100 mg total) by mouth 2 (two) times daily. (HOLDING),Disp: , Rfl: ??? COMPRESSION STOCKINGS, 15-20 mm [...] total) by mouth daily. Prior Auth APPROVED [id number] 01-28-2020., Disp: , Rfl: ??? fexofenadine (SAMANTHA ALLERGY) 180 MG tablet, Take 1 tablet (180 mg total) by mouth daily., Disp: , Rfl: ??? Fish Oil 1000 MG Cap, Take 2,000 mg by mouth 2 (two) times daily., Disp: , Rfl: ??? fluoxetine 20 MG capsule, Take 2 capsules (40 mg total) by mouth daily., Disp: , Rfl: ??? ISOSORBIDE MONONITRATE ER 30 MG 24 hr tablet, TAKE 1 TABLET BY MOUTH ONCE DAILY, Disp: 90 tablet, Rfl: 1 ??? losartan [...] 911), Disp: 25 tablet, Rfl: 1 ??? rosuvastatin 20 MG tablet, Take 1 tablet (20 mg total) by mouth nightly. Prior Auth APPROVED 12-28-18 through 12-28-2019., Disp: , Rfl: ??? trazodone 50 MG tablet, Take 1 tablet by mouth as needed., Disp: , Rfl: Allergies Allergen Reactions ??? Haloperidol Seizure ??? Penicillins Redness ??? Resperal-Dm [Esy-Td-Jky-Propyl Iclmaa-Mdv-Ibyrnnjng] Seizure ??? Triazolam Seizure Past Medical History: [...] file Gets together: Not on file Attends zoroastrianism service: Not on file Active member of [...] Sister Erinn Alive Review of Systems Constitutional: Positive for malaise/fatigue. Negative for chills, fever and weight loss. HENT: Negative for hearing loss. Eyes: Negative for blurred vision and double vision. Respiratory: Positive for shortness of breath and wheezing. Negative for cough and hemoptysis. Cardiovascular: Negative for chest pain, palpitations, [...] systems reviewed and are negative. Filed Vitals: 07/26/19 1137 07/26/19 1252 BP: 118/82 130/80 Pulse: 83 SpO2: 96% Weight: 93.4 kg (206 lb) Height: 5' 3 (1.6 m) Physical [...] PVD (peripheral vascular disease) with claudication (CMS/HCC) CBC W/DIFF AUTOMATED BASIC METABOLIC PANEL 2. Essential hypertension CBC W/DIFF AUTOMATED BASIC METABOLIC PANEL 3. Stenosis of right carotid artery 4. Hyperlipidemia, mixed documented in this encounter Plan of Treatment Not on file documented as of this encounter Visit Diagnoses Diagnosis PVD (peripheral vascular disease) with claudication (CMS/HCC)- Primary Peripheral vascular disease, unspecified Essential hypertension Unspecified essential hypertension Stenosis of right carotid artery Occlusion and stenosis of carotid artery without mention of cerebral infarction Hyperlipidemia, mixed Mixed hyperlipidemia documented in this encounter Care Teams Experimental Plastics Fabricator Relationship Specialty Start Date End Date Deisi Andrews MD [address] [place] [address] [place] [address] PCP - General FAMILY PRACTICE 06/15/17 10/14/19 Asa Mcnamara MD [place] [address] [place] [address] [place] Interactive Media Project Manager CARDIOVASCULAR DISEASE 05/15/16 documented as of this encounter
--- OUTSIDE RECORDS SUMMARY | 2024-11-12 04:46 | XMS_ITS | Encounter Summary ---
Author Organization [facility] Address [facility]ly [facility] [place] [address] [place] [address] Care Team Providers Care Milk Treater Name Role Phone Asa Mcnamara MD Unavailable [phone] Neva Holden MD Primary Care Provider [phone] Reason for Visit * Reason Onset Date Comments Information 08/01/2020 [facility] Hospital / r ecords received Encounter Details Date Type Department Care Team (Late st Contact Info) Description 08/01/2020 Telephone [facility] at [facility], [facility] [address] [place] [address] Asa Mcnamara MD [facility]. [facility] [address] [place] [address] Information ([facility] / records received) Social History Tobacco Use Types Packs/Day Years Used Date Smoking Tobacco: Every Day Cigarettes Smokeless Tobacco: Never Comments:1 pk day Alcohol Use Standard Drinks/Week Comments No 0 (1 standard drink = 0.6 oz pur e alcohol) Comments Unknown Sex and Gender Information Value Date Recorded Sex Assigned at Female 12/06/2019 3:36 PM MENTAL RETARDATION NURSE Legal Sex Female 5:20 PM CDT Gender Identity Female 12/06/2019 3:36 PM MENTAL RETARDATION NURSE Sexual Orientation Straight 12/06/2019 3: 36 PM MENTAL RETARDATION NURSE Occupation Industry Job Start Date Job End Date Not on file Not on file Not on file Not on file documented as of this encounter Progress Notes * Mirna Wise - 08/01/2020 3:15 PM CDT 07/29/20 records received from [facility] 07/10/20 Generic Vascular Lab report, 07/10/20 LE ArterialPhysiologic Report documented in this encounter Plan of Treatment Not on file documented as of this encounter Visit Diagnoses Not on filedocumented in this encounter Care Teams Milk Treater Relationship Specialty Start Date End Date Neva Holden MD [facility] [address] [place] [address] PCP - General FAMILY PRACTICE 02/14/20 Asa Mcnamara MD [facility]. [facility] [address] [place] [address] Stephen Postal Service Window Clerk CARDIOVASCULAR DISEASE 05/15/16 documented as of this encounter
--- OUTSIDE RECORDS SUMMARY | 2024-11-12 04:46 | XMS_ITS | Encounter Summary ---
Author Organization [facility] Address [address] [facility]. [place], [place] [address] [place] [address] Care Team Providers Care Bee Worker Name Role Phone Asa Mcnamara MD Unavailable [phone] Neva Holden MD Primary Care Provider [phone] Encounter Details Date Type Department Care Team (Latest Contact Info) Description 02/21/2020 Travel Social History Tobacco Use Types Packs/Day Years Used Date Smoking Tobacco: Every Day Cigarettes Smokeless Tobacco: Never Comments:1 pk day Alcohol Use Standard Drinks/Week Comments No 0 (1 standard drink = 0.6 oz pur e alcohol) Comments Unknown Sex and Gender Information Value Date Recorded Sex Assigned at Female 12/06/2019 3:36 PM TAR POT MAN Legal Sex Female 5:20 PM CDT Gender Identity Female 12/06/2019 3:36 PM TAR POT MAN Sexual Orientation Straight 12/06/2019 3: 36 PM TAR POT MAN Occupation Industry Job Start Date Job End Date Not on file Not on file Not on file Not on file COVID-19 Exposure Response Date Recorded In the last month, have you been in contact with someone who was confirmed or suspected to have Coronavirus / COVID-19? No / Unsure 02/21/2020 8:11 AM CDT documented as of this encounter Plan of Treatment Not on file documented as of this encounter Visit Diagnoses Not on filedocumented in this encounter Care Teams Bee Worker Relationship Specialty Start Date End Date Neva Holden MD [facility] [address] [place] [address] PCP - General FAMILY PRACTICE 02/14/20 Asa Mcnamara MD [facility] [address] [place] [address] [place] Manager Security CARDIOVASCULAR DISEASE 05/15/16 documented as of this encounter
--- OUTSIDE RECORDS SUMMARY | 2024-11-12 04:46 | XMS_ITS | Encounter Summary ---
Author Organization [facility] Address [facility]. [place], [place] [address] [place] [address] Care Team Providers Care Wine Consultant Name Role Phone Asa Mcnamara MD Unavailable [phone] Neva Holden MD Primary Care Provider [phone] Encounter Details Date Type Department Care Team (Latest Contact Info) Description 04/01/2020 Scan HEALTH INFO [facility] Scanned, Documents Social History Tobacco Use Types Packs/Day Years Used Date Smoking Tobacco: Every Day Cigarettes Smokeless Tobacco: Never Comments:1 pk day Alcohol Use Standard Drinks/Week Comments No 0 (1 standard drink = 0.6 oz pur e alcohol) Comments Unknown Sex and Gender Information Value Date Recorded Sex Assigned at Female 12/06/2019 3:36 PM INVENTORY SPECIALIST Legal Sex Female 5:20 PM CDT Gender Identity Female 12/06/2019 3:36 PM INVENTORY SPECIALIST Sexual Orientation Straight 12/06/2019 3: 36 PM INVENTORY SPECIALIST Occupation Industry Job Start Date Job End Date Not on file Not on file Not on file Not on file documented as of this encounter Plan of Treatment Not on file documented as of this encounter Visit Diagnoses Not on filedocumented in this encounter Care Teams Wine Consultant Relationship Specialty Start Date End Date Neva Holden MD . [facility] [address] [place] [address] PCP - General FAMILY PRACTICE 02/14/20 Asa Mcnamara MD Three [facility]. [facility] [address] [place] [address] Light Servicer Supervisor CARDIOVASCULAR DISEASE 05/15/16 documented as of this encounter
--- OUTSIDE RECORDS SUMMARY | 2024-11-12 04:46 | XMS_ITS | Encounter Summary ---
Author Organization [facility] Address [facility]6 [facility] [place] [address] [place] [address] Care Team Providers Care Lithographic Platemaker Name Role Phone Asa Mcnamara MD Unavailable [phone] Deisi Andrews MD Primary Care Provider [phone] Reason for Visit * Reason Onset Date Comments Surgical Clearance 01/26/2019 Encounter Details Date Type Department Care Team (Late st Contact Info) Description 01/26/2019 Telephone [facility] at [facility], [facility] [address] [place] [address] Asa Mcnamara MD [facility]. [facility] [address] [place] [address] Surgical Clearance Social History Tobacco Use Types Packs/Day Years Used Date Smoking Tobacco: Every Day Cigarettes Smokeless Tobacco: Never Comments:1 pk day Alcohol Use Standard Drinks/Week Comments No 0 (1 standard drink = 0.6 oz pur e alcohol) Comments Unknown Sex and Gender Information Value Date Recorded Sex Assigned at Female 12/06/2019 3:36 PM RATTLESNAKE FARMER Legal Sex Female 5:20 PM CDT Gender Identity Female 12/06/2019 3:36 PM RATTLESNAKE FARMER Sexual Orientation Straight 12/06/2019 3: 36 PM RATTLESNAKE FARMER Occupation Industry Job Start Date Job End Date Not on file Not on file Not on file Not on file documented as of this encounter Progress Notes * Nery Cadet - 01/31/2019 9:29 AM CDT Clearance faxed to [phone] * Hari Rehman NP - 01/30/2019 1:24 PM CDT Recent office visit noted. Acceptable cardiac risk for EGD * Nery Cadet - 01/26/2019 4:[address] Ventura is requesting clearance for EGD. Patient was cleared for Colonoscopy in November. documented in this encounter Plan of Treatment Not on file documented as of this encounter Visit Diagnoses Not on filedocumented in this encounter Care Teams Lithographic Platemaker Relationship Specialty Start Date End Date Deisi Andrews MD [address] [place] [address] [place] [address] PCP - General FAMILY PRACTICE 06/15/17 10/14/19 Asa Mcnamara MD [facility]. [facility] [address] [place] [address] [place] Occupational Therapy Professor CARDIOVASCULAR DISEASE 05/15/16 documented as of this encounter
--- OUTSIDE RECORDS SUMMARY | 2024-11-12 04:46 | XMS_ITS | Encounter Summary ---
Author Organization [facility] Address [facility]6 [facility] [place] [address] [place] [address] Care Team Providers Care Grill Attendant Name Role Phone Asa Mcnamara MD Unavailable [phone] Neva Holden MD Primary Care Provider [phone] Reason for Visit * Reason Onset Date Comments Lab Results 11/03/2019 Encounter Details Date Type Department Care Team (Late st Contact Info) Description 11/03/2019 Telephone [facility] at [address] [address] Katt Walter well service derrick worker Results Social History Tobacco Use Types Packs/Day Years Used Date Smoking Tobacco: Every Day Cigarettes Smokeless Tobacco: Never Comments:1 pk day Alcohol Use Standard Drinks/Week Comments No 0 (1 standard drink = 0.6 oz pur e alcohol) Comments Unknown Sex and Gender Information Value Date Recorded Sex Assigned at Female 12/06/2019 3:36 PM TEST BORE HELPER Legal Sex Female 5:20 PM CDT Gender Identity Female 12/06/2019 3:36 PM TEST BORE HELPER Sexual Orientation Straight 12/06/2019 3: 36 PM TEST BORE HELPER Occupation Industry Job Start Date Job End Date Not on file Not on file Not on file Not on file documented as of this encounter Progress Notes * Katt Walter RN - 11/03/2019 1:55 PM CST Let patient know overall her labs are stable. Her WBC is elevated. I read in [place] note she complained of a cough. Advise her to follow up with her PCP. Above message from Katt MURPHY. I informed the patient of the above information. The patient states that she did get antibiotics and plans to follow up with her PCP. The patient had no further questions. BORE HELPER documented in this encounter Plan of Treatment Not on file documented as of this encounter Visit Diagnoses Not on filedocumented in this encounter Care Teams Grill Attendant Relationship Specialty Start Date End Date Neva Holden MD [facility] [address] [place] [address] PCP - General FAMILY PRACTICE 10/15/19 12/05/19 Asa Mcnamara MD [facility]. [facility] [place] [address] [place] [address] [place] Manual Training Teacher CARDIOVASCULAR DISEASE 05/15/16 documented as of this encounter
--- OUTSIDE RECORDS SUMMARY | 2024-11-12 04:47 | XMS_ITS | Encounter Summary ---
Author Organization [facility] Address [facility]. [place], [place] [address] [place] [address] Care Team Providers Care Electro Optics Engineer Name Role Phone Asa Mcnamara MD Unavailable [phone] Heber Adorno MD Primary Care Provider Unavailable Deisi Andrews MD Primary Care Provider [phone] Encounter Details Date Type Department Care Team (Late st Contact Info) Description 06/09/2017 Scan [facility] AT [address] [address] Scanned, Documents Social History Tobacco Use Types Packs/Day Years Used Date Smoking Tobacco: Every Day Cigarettes Smokeless Tobacco: Never Comments:2 cig a day Alcohol Use Standard Drinks/Week Comments No 0 (1 standard drink = 0.6 oz pur e alcohol) Comments Unknown Sex and Gender Information Value Date Recorded Sex Assigned at Female 12/06/2019 3:36 PM PAROLE BOARD MEMBER Legal Sex Female 5:20 PM CDT Gender Identity Female 12/06/2019 3:36 PM PAROLE BOARD MEMBER Sexual Orientation Straight 12/06/2019 3: 36 PM PAROLE BOARD MEMBER Occupation Industry Job Start Date Job End Date Not on file Not on file Not on file Not on file documented as of this encounter Plan of Treatment Not on file documented as of this encounter Visit Diagnoses Not on filedocumented in this encounter Care Teams Electro Optics Engineer Relationship Specialty Start Date End Date Heber Adorno MD PCP - General 03/11/17 06/14/17 Deisi Andrews MD [address] [place] [address] [place] [address] PCP - General FAMILY PRACTICE 06/15/17 10/14/19 Asa Mcnamara MD [facility]. [facility] [address] [place] [address] [place] Laundry Machine Tender CARDIOVASCULAR DISEASE 05/15/16 documented as of this encounter
--- OUTSIDE RECORDS SUMMARY | 2024-11-12 04:47 | XMS_ITS | Encounter Summary ---
Author Organization [facility] Address [address] [facility]. [place], [place] [address] [place] [address] Care Team Providers Care High School Math Tutor Name Role Phone Asa Mcnamara MD Unavailable [phone] Deisi Andrews MD Primary Care Provider [phone] Reason for Referral * Imaging (Routine) - Closed Specialty Diagnoses / Procedures Referred By Contac t Referred To Contact CARDIOLOGY Diagnoses PVD (peripheral vascular disease) with claudication (CMS/HCC) Symptoms involving cardiovascular system Procedures USV AORTA ILIAC IVC DUPLEX COMP US AORTA DUPLEX COMP (74897) Asa Mcnamara MD Three [facility]. [address] [address] Phone: tel: fax: [facility] [place] [address] Phone: tel: Referral ID Status Reason Start Date Expiration Date Visits Re quested Visits Authorized [id number] Closed 08/18/2017 12/20/2017 1 1 [facility] HE[facility] NURSE Reason for Visit * Imaging (Routine) - Closed Specialty Diagnoses / Procedures Referred By Contac t Referred To Contact CARDIOLOGY Diagnoses PVD (peripheral vascular disease) with claudication (CMS/HCC) Symptoms involving cardiovascular system Procedures USV ART REST W KENZIE LOW EXT USV ARTERIAL STRESS LOW EXT (51544) Asa Mcnamara MD Three [facility]. [address] [address] Phone: tel: fax: [facility] [place] [address] Phone: tel: Referral ID Status Reason Start Date Expiration Date Visits Re quested Visits Authorized [id number] Closed 08/18/2017 12/20/2017 1 1 Encounter Details Date Type Department Care Team (Late st Contact Info) Description 11/19/2017 9:15 AM EMPLOYEE HEALTH NURSE - 11/19/2017 9:18 AM EMPLOYEE HEALTH NURSE Hospital Encounter [facility] [place], [place] [id number] Asa Mcnamara MD Three [facility]. [address] [id number] Discharge Disposition: Home or Self Care (Routine Discharge) Social History Tobacco Use Types Packs/Day Years Used Date Smoking Tobacco: Every Day Cigarettes Smokeless Tobacco: Never Comments:2 cig a day Alcohol Use Standard Drinks/Week Comments No 0 (1 standard drink = 0.6 oz pur e alcohol) Comments Unknown Sex and Gender Information Value Date Recorded Sex Assigned at Female 12/06/2019 3:36 PM EMPLOYEE HEALTH NURSE Legal Sex Female 5:20 PM CDT Gender Identity Female 12/06/2019 3:36 PM EMPLOYEE HEALTH NURSE Sexual Orientation Straight 12/06/2019 3: 36 PM EMPLOYEE HEALTH NURSE Occupation Industry Job Start Date Job [...] (180 mg total) by mouth daily. 04/22/2017 Multiple Vitamins-Minerals (PRESERVISION AREDS) capsule Take 1 capsule by mouth 2 (two) times daily. 04/08/2016 AEROSPAN 80 MCG/ACT Aero Soln Inhale 1 puff into the lungs 2 (two) times daily. 05/19/2017 9 amlodipine 5 MG tablet Take 1 tablet by mouth daily. 04/08/2016 9 aspirin 81 MG tablet Take 1 tablet (81 mg total) by mouth daily. 05/20/2016 8 cilostazol 100 MG tablet Take 1 tablet (100 mg total) by mouth 2 (two) times daily. 06/07/2017 8 fluoxetine 40 MG capsule Take 1 capsule (40 mg total) by mouth daily. 08/18/2017 8 furosemide 40 MG tablet Take 1 tablet (40 mg total) by mouth daily. 30 tablet 3 06/07/2017 8 hydrocodone-aceta minophen 5-325 MG tablet Take 1 tablet by mouth 2 (two) times daily. 07/30/2017 9 ibuprofen 600 MG tablet Take 1 tablet (600 mg total) by mouth every 8 (eight) hours as needed for Pain. 04/22/2017 8 isosorbide mononitrate ER 30 MG 24 hr tablet Take 1 tablet (30 mg total) by mouth daily. 30 tablet 5 08/18/2017 8 losartan 100 MG tablet Take 1 tablet by mouth daily. 04/08/2016 8 metFORMIN 500 MG tablet Take 1 tablet by mouth 2 (two) times daily. 04/08/2016 8 metoprolol succinate 25 MG 24 hr tablet Take 1 tablet (25 mg total) by mouth daily. 04/22/2017 8 montelukast 10 MG tablet 10 mg daily. 10/28/2016 8 nitroGLYCERIN 0.[address] 1 tablet (0.4 mg total) under the tongue every 5 (five) minutes as needed for Chest Pain (If no relief after 3rd dose, contact 911.). 25 tablet 1 08/18/2017 8 potassium chloride CR 20 MEQ tablet Take 1 tablet (20 mEq total) by mouth daily. 30 tablet 3 06/07/2017 8 pravastatin 40 MG tablet Take 1 tablet by mouth daily. 04/08/2016 8 trazodone 50 MG tablet Take 1 tablet by mouth as needed. 08/16/2017 0 documented as of this encounter Plan of Treatment Not on file documented as of this encounter Procedures Procedure Name Priority Date/Time Associated Diagnosis Comments USV AORTA ILIAC IVC DUPLEX COMP Routine 11/19/2017 11:15 AM EMPLOYEE HEALTH NURSE PVD (peripheral vascular disease) with claudication Symptoms involving cardiovascular system USV ART REST W KENZIE LOW EXT Routine 11/19/2017 11:06 AM EMPLOYEE HEALTH NURSE PVD (peripheral vascular disease) with claudication Symptoms involving cardiovascular system documented in this encounter Results * USV AORTA ILIAC IVC DUPLEX COMP (11/19/2017 11:15 AM EMPLOYEE HEALTH NURSE) Anatomical Region Laterality Modality NA Vascular Ultraso und 11/19/2017 9:37 AM EMPLOYEE HEALTH NURSE Narrative 11/20/2017 1:54 PM EMPLOYEE HEALTH NURSE ?[id number] DUPLEX IMAGING ? VASCULAR LAB Pat.Name: ??RODY CRUZ ?Pat.ID: ?[id number] ? St.Date: ?? 11/19/2017 ?Exam Time: 9:37:00 AM ? Study Type:SCOTTIE VS Aorta IVC Iliac Duplex DILEEP ??Age: ??1960,56Y ? Sex: ? FEMALE ?Sonogrphr: Roxie Caba, RVT ? Pat. Stat.:Outpatient ? History / Clinical:f/u PVD; ??DILEEP KALANI stents, Carotid Disease, HTN, HLD, TOB, CVA, CEA, PAD; asa, plavix, eliquis Procedures:Doppler waveforms, Digit PPG, Systolic Pressures w/KENZIE ++++++++++++++++++++++++++++++++++++ SUMMARY: ++++++++++++++++++++++++++++++++++++ Gail Stenosis Criteria: ? 50-75% = Ratio 2.0-4.0 and/or PSV 200-300; ? 75-99% = Ratio >4.0 and/or PSV >300 ? STENT Criteria: ?>50% = Ratio >1.5 and/or PSV >190; ?>80% = Ratio >3.5 and/or PSV >275 ?? Aorta-iliac duplex: ??Aorta mild plaque, bi-triphasic with normal velocity. ?? Right common iliac stented, moderate plaque, biphasic with elevated PSV 308/64 cm/s, ratio 3.9; ?? right external iliac mild plaque, biphasic with normal velocity. Left common iliac stented, moderate plaque, mono-biphasic with elevated PSV 394/128 cm/s, ratio 2.8; ?? left external iliac mild plaque, biphasic with normal velocity. CONCLUSION: ? Right: ??76-99% at the common iliac. Instent stenosis. ??Mild, <50% stenosis at the external iliac. Left: ??76-99% at the common iliac. ??Instent stenosis. Mild, <50% stenosis at the external iliac. ++++++++++++++++++++++++++++++++++++ MEASUREMENTS: ++++++++++++++++++++++++++++++++++++ ?DOPPLER Supra AO ?? Supra AO PSV ?55 cm/s ? Juxta AO ?? Juxta AO PSV ?60 cm/s ? Dist AO ?? Dist AO PSV ? 73 cm/s ? Rt Dist External Iliac ?? Dist External I ?? 134 cm/s ? Rt Mid External Iliac ?? Mid External Il ?? 111 cm/s ? Lt Dist External Iliac ?? Lt Dist Externa ?68 cm/s ? Lt Mid External Iliac ?? Lt Mid External ?61 cm/s ? Lt Prox External Iliac ?? External Iliac ? 92 cm/s ? Ext Iliac ?? Left Ext Iliac ?? 91.5 cm/s ? Right Ext Iliac 133.6 cm/s Left Ext Iliac ?? 60.7 cm/s ? Right Ext Iliac ? 0 ? Left Ext Iliac ?? 68.4 cm/s ? Int Iliac ?? Left Int Iliac ?0 ?GRAFT Left Prox to Stent Prox-Mid KALANI:Stent Prox to Stent P ?73 cm/s ? Right Prox to Stent Prox-Mid KALANI:Stent Prox to Stent P ?73 cm/s ? Left Prox Stent Prox-Mid KALANI:Stent Prox Stent PSV ?? 142 cm/s ? Right Prox Stent Prox-Mid KALANI:Stent Prox Stent PSV ?79 cm/s ? Left Mid Stent Prox-Mid KALANI:Stent Mid Stent PSV ?394 cm/s ?Mid Stent EDV ?128 cm/s Right Mid Stent Prox-Mid KALANI:Stent Mid Stent PSV ?308 cm/s ?Mid Stent EDV ? 64 cm/s Left Dist Stent Prox-Mid KALANI:Stent Dist Stent PSV ?? 112 cm/s ? Right Dist Stent Prox-Mid KALANI:Stent Dist Stent PSV ?? 240 cm/s ?Dist Stent EDV ? 0 cm/s Left Dist to Stent Prox-Mid KALANI:Stent Dist to Stent P ?? 134 cm/s ? Right Dist to Stent Prox-Mid KALANI:Stent Dist to Stent P ?? 111 cm/s ? Signed 11/20/2017 01:54 PM Caesar Aguayo M.D. Procedure Note Caesar Aguayo MD - 11/20/2017 [id number] DUPLEX IMAGING VASCULAR LAB Pat.Name: RODY CRUZ Pat.ID: [id number] St.Date: 11/19/2017 Exam Time: 9:37:00 AM Study Type:SCOTTIE VS Aorta IVC Iliac Duplex DILEEP Age: 3 1960,56Y Sex: FEMALE Sonogrphr: Roxie Caba, RVT Pat. Stat.:Outpatient History / Clinical:f/u PVD; DILEEP KALANI stents, Carotid Disease, HTN, HLD, TOB, CVA, CEA, PAD; asa, plavix, eliquis Procedures:Doppler waveforms, Digit PPG, Systolic Pressures w/KENZIE ++++++++++++++++++++++++++++++++++++ SUMMARY: ++++++++++++++++++++++++++++++++++++ Gail Stenosis Criteria: 50-75% = Ratio 2.0-4.0 and/or PSV 200-300; 75-99% = Ratio >4.0 and/or PSV >300 STENT Criteria: >50% = Ratio >1.5 and/or PSV >190; >80% = Ratio >3.5 and/or PSV >275 Aorta-iliac duplex: Aorta mild plaque, bi-triphasic with normal velocity. Right common iliac stented, moderate plaque, biphasic with elevated PSV 308/64 cm/s, ratio 3.9; right external iliac mild plaque, biphasic with normal velocity. Left common iliac stented, moderate plaque, mono-biphasic with elevated PSV 394/128 cm/s, ratio 2.8; left external iliac mild plaque, biphasic with normal velocity. CONCLUSION: Right: 76-99% at the common iliac. Instent stenosis. Mild, <50% stenosis at the external iliac. Left: 76-99% at the common iliac. Instent stenosis. Mild, <50% stenosis at the external iliac. ++++++++++++++++++++++++++++++++++++ MEASUREMENTS: ++++++++++++++++++++++++++++++++++++ DOPPLER Supra AO Supra AO PSV 55 cm/s Juxta AO Juxta AO PSV 60 cm/s Dist AO Dist AO PSV 73 cm/s Rt Dist External Iliac Dist External I 134 cm/s Rt Mid External Iliac Mid External Il 111 cm/s Lt Dist External Iliac Lt Dist Externa 68 cm/s Lt Mid External Iliac Lt Mid External 61 cm/s Lt Prox External Iliac External Iliac 92 cm/s Ext Iliac Left Ext Iliac 91.5 cm/s Right Ext Iliac 133.6 cm/s Left Ext Iliac 60.7 cm/s Right Ext Iliac 0 Left Ext Iliac 68.4 cm/s Int Iliac Left Int Iliac 0 GRAFT Left Prox to Stent Prox-Mid KALANI:Stent Prox to Stent P 73 cm/s Right Prox to Stent Prox-Mid KALANI:Stent Prox to Stent P 73 cm/s Left Prox Stent Prox-Mid KALANI:Stent Prox Stent PSV 142 cm/s Right Prox Stent Prox-Mid KALANI:Stent Prox Stent PSV 79 cm/s Left Mid Stent Prox-Mid KALANI:Stent Mid Stent PSV 394 cm/s Mid Stent EDV 128 cm/s Right Mid Stent Prox-Mid KALANI:Stent Mid Stent PSV 308 cm/s Mid Stent EDV 64 cm/s Left Dist Stent Prox-Mid KALANI:Stent Dist Stent PSV 112 cm/s Right Dist Stent Prox-Mid KALANI:Stent Dist Stent PSV 240 cm/s Dist Stent EDV 0 cm/s Left Dist to Stent Prox-Mid KALANI:Stent Dist to Stent P 134 cm/s Right Dist to Stent Prox-Mid KALANI:Stent Dist to Stent P 111 cm/s Signed 11/20/2017 01:54 PM Caesar Aguayo M.D. Asa Mcnamara MD VASC Final Result * USV ART REST W KENZIE LOW EXT (11/19/2017 11:06 AM EMPLOYEE HEALTH NURSE) Anatomical Region Laterality Modality Extremity Vascular Ultraso und Narrative 11/20/2017 1:57 PM EMPLOYEE HEALTH NURSE ?ARTERIAL DOPPLER - KENZIE ?BILATERAL LOWER EXTREMITY ? VASCULAR LAB Pat.Name: ??RODY CRUZ ?Pat.ID: ?[id number] ? St.Date: ?? 11/19/2017 ?Exam Time: 3:08:00 PM ? Study Type:SCOTTIE VS Arterial Doppler Legs DILEEP ??Age: ??1960,56Y ? Sex: ? FEMALE ?Sonogrphr: Caesar uQinn, RVT ? Pat. Stat.:Outpatient ? History / Clinical:known carotid disease, left carotid endarterectomy, stroke, patient denies stroke symptoms. Procedures:Doppler waveforms, Digit PPG, Systolic Pressures w/KENZIE Race: [...] waveform is triphasic, high amplitude; Popliteal triphasic, high amplitude; ??Posterior Tibial triphasic, high amplitude with KENZIE 1.03; ??DP/Anterior Tibial triphasic, high amplitude with KENZIE 0.96 ??Digit flow by PPG is low amplitude with DBI 0.67. Left leg: ??Common Femoral waveform is monophasic, medium amplitude; Popliteal monophasic, medium amplitude; ??Posterior Tibial monophasic, low amplitude with KENZIE 0.83; ??DP/Anterior Tibial monophasic, low amplitude with KENZIE 0.70. ??Digit flow by PPG is medium amplitude with DBI 0.54. CONCLUSION: ?? KENZIE right leg 1.03, with toe index 0.67, in the range of no ischemia, triphasic waveforms. KENZIE left leg 0.83, with toe index 0.54, in the range of mild ischemia, asymptomatic PAD. ??Waveforms suggestive of multi-level disease. Recommend follow up in 6 months or as symptoms warrant. Signed 11/20/2017 01:57 PM Caesar Aguayo M.D. Asa Mcnamara MD [facility] Edited Resul t - Final documented in this encounter Visit Diagnoses Diagnosis PVD (peripheral vascular disease) with claudication (CMS/HCC) Peripheral vascular disease, unspecified Symptoms involving cardiovascular system Other symptoms involving cardiovascular system documented in this encounter Care Teams High School Math Tutor Relationship Specialty Start Date End Date Deisi Andrews MD [address] [place] [address] [place] [address] PCP - General FAMILY PRACTICE 06/15/17 10/14/[address] [facility] [address] [place] [address] [employer] Heat Welder CARDIOVASCULAR DISEASE 05/15/16 documented as of this encounter
--- OUTSIDE RECORDS SUMMARY | 2024-11-12 04:47 | XMS_ITS | Encounter Summary ---
Author Organization [facility] Address [facility] [place] [address] [place] [address] Care Team Providers Care Quality Control Supervisor Name Role Phone Asa Mcnamara MD Unavailable [phone] Deisi Andrews MD Primary Care Provider [phone] Encounter Details Date Type Department Care Team (Late st Contact Info) Description 08/17/2017 Orders Only [facility] AT [address] [address] Lm Acharya, A Social History Tobacco Use Types Packs/Day Years Used Date Smoking Tobacco: Every Day Cigarettes Smokeless Tobacco: Never Comments:2 cig a day Alcohol Use Standard Drinks/Week Comments No 0 (1 standard drink = 0.6 oz pur e alcohol) Comments Unknown Sex and Gender Information Value Date Recorded Sex Assigned at Female 12/06/2019 3:36 PM AIR VICE MARSHAL Legal Sex Female 5:20 PM CDT Gender Identity Female 12/06/2019 3:36 PM AIR VICE MARSHAL Sexual Orientation Straight 12/06/2019 3: 36 PM AIR VICE MARSHAL Occupation Industry Job Start Date Job End Date Not on file Not on file Not on file Not on file documented as of this encounter Plan of Treatment Not on file documented as of this encounter Visit Diagnoses Not on filedocumented in this encounter Care Teams Quality Control Supervisor Relationship Specialty Start Date End Date Deisi Andrews MD [address] [place] [address] PCP - General FAMILY PRACTICE 06/15/17 10/14/19 Asa Mcnamara MD Three [facility]. [facility] [address] [place] [address] [facility] Specialist CARDIOVASCULAR DISEASE 05/15/16 documented as of this encounter
--- OUTSIDE RECORDS SUMMARY | 2024-11-12 04:47 | XMS_ITS | Encounter Summary ---
Author Organization [facility] Address [address] [facility] [place] [address] [place] [address] Care Team Providers Care Solar Installer Name Role Phone Asa Mcnamara MD Unavailable [phone] Deisi Andrews MD Primary Care Provider [phone] Reason for Visit * Reason Onset Date Comments Prior Authorization 11/30/2018 [place] Rupali or Auth for Rosuvastatin 10mg has been APPROVED from 11-29-18 through 11-29-2019. Encounter Details Date Type Department Care Team (Late st Contact Info) Description 11/30/2018 Telephone [facility] at [facility] [address] [place] [address] Asa Mcnamara MD [facility]. [facility] [address] [place], [place] [id number] Prior Authorization ([place] Prior Auth for Rosuvastatin 10mg has been APPROVED from 11-29-18 through 11-29-2019.) Social History Tobacco Use Types Packs/Day Years Used Date Smoking Tobacco: Every Day Cigarettes Smokeless Tobacco: Never Comments:1 pk day Alcohol Use Standard Drinks/Week Comments No 0 (1 standard drink = 0.6 oz pur e alcohol) Comments Unknown Sex and Gender Information Value Date Recorded Sex Assigned at Female 12/06/2019 3:36 PM RADIATOR MECHANIC Legal Sex Female 5:20 PM CDT Gender Identity Female 12/06/2019 3:36 PM RADIATOR MECHANIC Sexual Orientation Straight 12/06/2019 3: 36 PM RADIATOR MECHANIC Occupation Industry Job Start Date Job End Date Not on file Not on file Not on file Not on file documented as of this encounter Progress Notes * JOSE Estrada - 11/30/2018 8:20 AM CST [place] Prior Auth for Rosuvastatin 10mg has been APPROVED from 11-29-18 through 11-29-2019. ATOR MECHANIC documented in this encounter Plan of Treatment Not on file documented as of this encounter Visit Diagnoses Not on filedocumented in this encounter Care Teams Solar Installer Relationship Specialty Start Date End Date Deisi Andrews MD [address] [place] [address] [place] [address] PCP - General FAMILY PRACTICE 06/15/17 10/14/19 Asa Mcnamara MD [facility]. [facility] [address] [place] [address] Stephen Branch Associate Teller CARDIOVASCULAR DISEASE 05/15/16 documented as of this encounter
--- OUTSIDE RECORDS SUMMARY | 2024-11-12 04:47 | XMS_ITS | Encounter Summary ---
Author Organization [facility] Address [address] [facility] [place] [address] [place] [address] Care Team Providers Care High Rigger Name Role Phone Asa Mcnamara MD Unavailable [phone] Deisi Andrews MD Primary Care Provider [phone] Reason for Visit * Reason Onset Date Comments Prior Authorization 07/28/2018 [place] Rupali or Auth for Rosuvastatin has been DENIED. Encounter Details Date Type Department Care Team (Late st Contact Info) Description 07/28/2018 Telephone [facility] at [facility] [address] [place] [address] Asa Mcnamara MD [facility]. [facility] [address] [place] [address] Prior Authorization ([place] Prior Auth for Rosuvastatin has been DENIED.) Social History Tobacco Use Types Packs/Day Years Used Date Smoking Tobacco: Every Day Cigarettes Smokeless Tobacco: Never Comments:1 pk day Alcohol Use Standard Drinks/Week Comments No 0 (1 standard drink = 0.6 oz pur e alcohol) Comments Unknown Sex and Gender Information Value Date Recorded Sex Assigned at Female 12/06/2019 3:36 PM DRIER OPERATOR Legal Sex Female 5:20 PM CDT Gender Identity Female 12/06/2019 3:36 PM DRIER OPERATOR Sexual Orientation Straight 12/06/2019 3: 36 PM DRIER OPERATOR Occupation Industry Job Start Date Job End Date Not on file Not on file Not on file Not on file documented as of this encounter Progress Notes * JOSE Estrada - 07/28/2018 9:32 AM CDT Done, patient contacted and informed, she agrees to the change and had no further questions. Med list updated and script sent into her pharmacy. * Hari Rehman NP - 07/28/2018 8:57 AM CDT She has been intolerant to simvastatin. Pravastatin not strong enough. Rosuvastatin not covered. Likely she may not be able to tolerate atorvastatin but we will try. Please order atorvastatin 20 mg daily, plan to increase dosing as tolerates. * JOSE Estrada - 07/28/2018 8:49 AM CDT Prasanth Noriega completed a Prior Auth for Rosuvastatin 20mg and it has been Denied. Denial states: Rosuvastatin 20mg is not a covered benefit on the 2018 Medicaid Formulary. will cover Atorvastatin tablet with quantity limitations. Please tracyeLm documented in this encounter Plan of Treatment Not on file documented as of this encounter Visit Diagnoses Not on filedocumented in this encounter Care Teams High Rigger Relationship Specialty Start Date End Date Deisi Andrews MD [address] [place] [address] [place] [address] PCP - General FAMILY PRACTICE 06/15/17 10/14/19 Asa Mcnamara MD [facility] [address] [place] [address] [place] Hydrotechnical Specialist CARDIOVASCULAR DISEASE 05/15/16 documented as of this encounter
--- OUTSIDE RECORDS SUMMARY | 2024-11-12 04:47 | XMS_ITS | Encounter Summary ---
Author Organization [facility] Address Formerly [facility], [id number] [facility]. [place], [place] [address] [place] [address] Care Team Providers Care Mid Level Provider Name Role Phone Asa Mcnamara MD Unavailable [phone] Deisi Andrews MD Primary Care Provider [phone] Encounter Details Date Type Department Care Team (Latest Contact Info) Description 10/14/2017 Abstract [facility] Social History Tobacco Use Types Packs/Day Years Used Date Smoking Tobacco: Every Day Cigarettes Smokeless Tobacco: Never Comments:2 cig a day Alcohol Use Standard Drinks/Week Comments No 0 (1 standard drink = 0.6 oz pur e alcohol) Comments Unknown Sex and Gender Information Value Date Recorded Sex Assigned at Female 12/06/2019 3:36 PM RECREATION TECHNICIAN Legal Sex Female 5:20 PM CDT Gender Identity Female 12/06/2019 3:36 PM RECREATION TECHNICIAN Sexual Orientation Straight 12/06/2019 3: 36 PM RECREATION TECHNICIAN Occupation Industry Job Start Date Job End Date Not on file Not on file Not on file Not on file documented as of this encounter Plan of Treatment Not on file documented as of this encounter Visit Diagnoses Not on filedocumented in this encounter Care Teams Mid Level Provider Relationship Specialty Start Date End Date Deisi Andrews MD [address] [place], [place] [address] [address] PCP - General FAMILY PRACTICE 06/15/17 10/14/19 Asa Mcnamara MD [facility]. [facility] [address] [place] [address] [place] Die Equipment Operator CARDIOVASCULAR DISEASE 05/15/16 documented as of this encounter
--- OUTSIDE RECORDS SUMMARY | 2024-11-12 04:47 | XMS_ITS | Encounter Summary ---
Author Organization [facility] Address [address] [facility]. [place], [place] [address] [place] [address] Care Team Providers Care Shirt Folding Machine Operator Name Role Phone Asa Mcnamara MD Unavailable [phone] Deisi Andrews MD Primary Care Provider [phone] Reason for Referral * Imaging (Routine) - Closed Specialty Diagnoses / Procedures Referred By Contac t Referred To Contact CARDIOLOGY Diagnoses PVD (peripheral vascular disease) (CMS/HCC) Symptoms involving cardiovascular system Procedures USV AORTA ILIAC IVC DUPLEX COMP Asa Mcnamara MD [address] [address] Phone: tel: fax: [place] [address] Phone: tel: Referral ID Status Reason Start Date Expiration Date Visits Re quested Visits Authorized [id number] Closed 12/07/2017 01/24/2018 1 1 TER TACKER * Imaging (Routine) - Closed Specialty Diagnoses / Procedures Referred By Contac t Referred To Contact CARDIOLOGY Diagnoses PVD (peripheral vascular disease) (CMS/HCC) Symptoms involving cardiovascular system Procedures USV POST/PRE/OTHER KENZIE DILEEP Asa Mcnamara MD Three [facility]. [place] [address] [place] [address] Phone: tel: fax: [facility] [place] [address] Phone: tel: Referral ID Status Reason Start Date Expiration Date Visits Re quested Visits Authorized [id number] Closed 12/07/2017 01/24/2018 1 1 TER TACKER Encounter Details Date Type Department Care Team (Late st Contact Info) Description 12/07/2017 Orders Only [facility] at [place] [facility] [place] [address] [place], [place] [id number] sAa Mcnamara MD [facility]. [facility] [address] [place] [address] Social History Tobacco Use Types Packs/Day Years Used Date Smoking Tobacco: Every Day Cigarettes Smokeless Tobacco: Never Comments:2 cig a day Alcohol Use Standard Drinks/Week Comments No 0 (1 standard drink = 0.6 oz pur e alcohol) Comments Unknown Sex and Gender Information Value Date Recorded Sex Assigned at Female 12/06/2019 3:36 PM COUNTER TACKER Legal Sex Female 5:20 PM CDT Gender Identity Female 12/06/2019 3:36 PM COUNTER TACKER Sexual Orientation Straight 12/06/2019 3: 36 PM COUNTER TACKER Occupation Industry Job Start Date Job End Date Not on file Not on file Not on file Not on file documented as of this encounter Plan of Treatment Not on file documented as of this encounter Results * USV AORTA ILIAC IVC DUPLEX COMP (12/31/2017 8:54 AM COUNTER TACKER) Anatomical Region Laterality Modality NA Vascular Ultraso und 12/31/2017 8:00 AM COUNTER TACKER Narrative 12/31/2017 7:31 PM COUNTER TACKER ?[id number] DUPLEX IMAGING ? VASCULAR LAB Pat.Name: ??ARNOLD CRUZ ?Pat.ID: ?[id number] ? St.Date: ?? 12/31/2017 ? Refer.: ??ASA MCNAMARA ? Exam Time: 8:00:00 AM ? Study Type:SCOTTIE VS Aorta IVC Iliac Duplex DILEEP ??Age: ??1960,57Y ? Sex: ? FEMALE ? History / Clinical:Follow up PAD, s/p BCIA balloons w/ LCIA stent on 12/06; ??Prior BCIA stents 06/2016; ??LCEA 2014; ??Prior studies preop 11/2017 w/ ABIs Rt 1.03/.96, Lt .83/.70, Stent veloc >300 bilat; ??PMH PAD, htn, hld, dm, cva, tob, copd, talita, joints Procedures:Qureshi scale, Color Doppler imaging, Doppler Spectral Analysis Race: ?W ? ++++++++++++++++++++++++++++++++++++ SUMMARY: ++++++++++++++++++++++++++++++++++++ Gail Stenosis Criteria: ? 50-75% = Ratio 2.0-4.0 and/or PSV 200-300; ? 75-99% = Ratio >4.0 and/or PSV >300 ? STENT Criteria: ?>50% = Ratio >1.5 and/or PSV >190; ?>80% = Ratio >3.5 and/or PSV >275 ?? Aorta-iliac duplex: ??Aorta mild plaque, triphasic with normal velocity. ?? Right common iliac stented, triphasic with normal velocity; ?? right external iliac no evident narrowing, triphasic with normal velocity. Left common iliac stented, triphasic with normal velocity; ?? left external iliac no evident narrowing, triphasic with normal velocity. Compared to previous exam done 11/19/17 pre-stenting , there is improvement, bilaterally. CONCLUSION: ? Widely patent aorta. Right: ??No evident stenosis at the common iliac stent, external iliac. Left: ??No evident stenosis at the common iliac stent, external iliac. ++++++++++++++++++++++++++++++++++++ MEASUREMENTS: ++++++++++++++++++++++++++++++++++++ ?DOPPLER Supra AO ?? Supra AO PSV ?66 cm/s ? Juxta AO ?? Juxta AO PSV ?67 cm/s ? Dist AO ?? Dist AO PSV ? 68 cm/s ? Rt Dist External Iliac ?? Dist External I ?? 116 cm/s ? Rt Mid External Iliac ?? Mid External Il ?? 113 cm/s ? Rt Prox External Iliac ?? External Iliac ?161 cm/s ? Rt Prox Internal Iliac ?? Internal Iliac ?161 cm/s ? Lt Dist External Iliac ?? Lt Dist Externa ?? 134 cm/s ? Lt Mid External Iliac ?? Lt Mid External ?? 130 cm/s ? Lt Prox External Iliac ?? External Iliac ?158 cm/s ? Lt Prox Internal Iliac ?? Internal Iliac ?144 cm/s ? Ext Iliac ?? Right Ext Iliac 161.4 cm/s ? Left Ext Iliac ??149.9 cm/s Right Ext Iliac 113.4 cm/s ? Left Ext Iliac ??129.8 cm/s Right Ext Iliac 115.6 cm/s ? Left Ext Iliac ??133.7 cm/s Iliac ?? Right Iliac Pro 116.7 cm/s ? Left Iliac Prox 123.5 cm/s Right Iliac Dis 193.2 cm/s ? Left Iliac Dist 158.2 cm/s Int Iliac ?? Left Int Iliac ?0 ?GRAFT Prox Stent LCIA STENT Prox Stent PSV ?? 124 cm/s ? Prox Stent RCIA STENT Prox Stent PSV ?? 117 cm/s ? Mid Stent LCIA STENT Mid Stent PSV ?125 cm/s ? Mid Stent RCIA STENT Mid Stent PSV ?176 cm/s ? Dist Stent LCIA STENT Dist Stent PSV ?? 158 cm/s ? Dist Stent RCIA STENT Dist Stent PSV ?? 193 cm/s ? Dist to Stent LCIA STENT Dist to Stent P ?? 147 cm/s ? Dist to Stent RCIA STENT Dist to Stent P ?? 147 cm/s ? Signed 12/31/2017 07:31 PM Leo Gutierrez M.D. Procedure Note Leo Gutierrez MD - 12/31/2017 [id number] DUPLEX IMAGING VASCULAR LAB Pat.Name: ARNOLD CRUZ Pat.ID: [id number] .Date: 12/31/2017 Refer.MD: ASA MCNAMARA Exam Time: 8:00:00 AM Study Type:SCOTTIE VS Aorta IVC Iliac Duplex DILEEP Age: 3 1960,57Y Sex: FEMALE History / Clinical:Follow up PAD, s/p BCIA balloons w/ LCIA stent on 12/06; Prior BCIA stents 06/2016; LCEA 2014; Prior studies preop 11/2017 w/ ABIs Rt 1.03/.96, Lt .83/.70, Stent veloc >300 bilat; PMH PAD, htn, hld, dm, cva, tob, copd, talita, joints Procedures:Qureshi scale, Color Doppler imaging, Doppler Spectral Analysis Race: W ++++++++++++++++++++++++++++++++++++ SUMMARY: ++++++++++++++++++++++++++++++++++++ Gail Stenosis Criteria: 50-75% = Ratio 2.0-4.0 and/or PSV 200-300; 75-99% = Ratio >4.0 and/or PSV >300 STENT Criteria: >50% = Ratio >1.5 and/or PSV >190; >80% = Ratio >3.5 and/or PSV >275 Aorta-iliac duplex: Aorta mild plaque, triphasic with normal velocity. Right common iliac stented, triphasic with normal velocity; right external iliac no evident narrowing, triphasic with normal velocity. Left common iliac stented, triphasic with normal velocity; left external iliac no evident narrowing, triphasic with normal velocity. Compared to previous exam done 11/19/17 pre-stenting , there is improvement, bilaterally. CONCLUSION: Widely patent aorta. Right: No evident stenosis at the common iliac stent, external iliac. Left: No evident stenosis at the common iliac stent, external iliac. ++++++++++++++++++++++++++++++++++++ MEASUREMENTS: ++++++++++++++++++++++++++++++++++++ DOPPLER Supra AO Supra AO PSV 66 cm/s Juxta AO Juxta AO PSV 67 cm/s Dist AO Dist AO PSV 68 cm/s Rt Dist External Iliac Dist External I 116 cm/s Rt Mid External Iliac Mid External Il 113 cm/s Rt Prox External Iliac External Iliac 161 cm/s Rt Prox Internal Iliac Internal Iliac 161 cm/s Lt Dist External Iliac Lt Dist Externa 134 cm/s Lt Mid External Iliac Lt Mid External 130 cm/s Lt Prox External Iliac External Iliac 158 cm/s Lt Prox Internal Iliac Internal Iliac 144 cm/s Ext Iliac Right Ext Iliac 161.4 cm/s Left Ext Iliac 149.9 cm/s Right Ext Iliac 113.4 cm/s Left Ext Iliac 129.8 cm/s Right Ext Iliac 115.6 cm/s Left Ext Iliac 133.7 cm/s Iliac Right Iliac Pro 116.7 cm/s Left Iliac Prox 123.5 cm/s Right Iliac Dis 193.2 cm/s Left Iliac Dist 158.2 cm/s Int Iliac Left Int Iliac 0 GRAFT Prox Stent LCIA STENT Prox Stent PSV 124 cm/s Prox Stent RCIA STENT Prox Stent PSV 117 cm/s Mid Stent LCIA STENT Mid Stent PSV 125 cm/s Mid Stent RCIA STENT Mid Stent PSV 176 cm/s Dist Stent LCIA STENT Dist Stent PSV 158 cm/s Dist Stent RCIA STENT Dist Stent PSV 193 cm/s Dist to Stent LCIA STENT Dist to Stent P 147 cm/s Dist to Stent RCIA STENT Dist to Stent P 147 cm/s Signed 12/31/2017 07:31 PM Leo Gutierrez M.D. us Asa Mcnamara MD [facility] Final Result * USV POST/PRE/OTHER KENZIE DILEEP (12/31/2017 8:54 AM COUNTER TACKER) Anatomical Region Laterality Modality Extremity Vascular Ultraso und 12/31/2017 8:43 AM COUNTER TACKER Narrative 01/02/2018 7:09 AM COUNTER TACKER ?ARTERIAL DOPPLER - KENZIE ?BILATERAL LOWER EXTREMITY ? VASCULAR LAB ? Pat.Name: ??ARNOLD CRUZ ?Pat.ID: ?[id number] ? St.Date: ?? 12/31/2017 ? Refer.MD: ??ASA MCNAMARA ? Exam Time: 8:43:00 AM ? Study Type:SCOTTIE VS Arterial Doppler KENZIE LTD ??Age: ??1960,57Y ? Sex: ? FEMALE ? Sonogrphr: Elida Baldwin RVT ? Pat. Stat.:Outpatient ? History / Clinical:Follow up PAD, s/p BCIA balloons w/ LCIA stent on 12/06; ??Prior BCIA stents 06/2016; ??LCEA 2014; ??Prior studies preop 11/2017 w/ ABIs Rt 1.03/.96, Lt .83/.70, Stent veloc >300 bilat; ??PMH PAD, htn, hld, dm, cva, tob, copd, talita, joints Procedures:Doppler waveforms, Digit PPG, Systolic Pressures w/KENZIE [...] drop) Right leg: ??Common Femoral waveform is not assessed; ??Popliteal not assessed; ??Posterior Tibial triphasic, medium amplitude with KENZIE 1.11 ; ??DP/Anterior Tibial biphasic, medium amplitude with KENZIE 0.984 . Digit flow by PPG is not recorded . Left leg: ??Common Femoral waveform is not assessed; ??Popliteal not assessed; ??Posterior Tibial biphasic, medium amplitude with KENZIE 1.27 ; DP/Anterior Tibial biphasic, medium amplitude with KENZIE 1.16 . ??Digit flow by PPG is not recorded . SEE DUPLEX SCAN REPORT DONE TODAY. ?? CONCLUSION: ?? KENZIE right leg 1, in the range of no ischemia. ??Waveforms suggestive of infrageniculate disease. KENZIE left leg 1.3, in the range of no ischemia. ??Waveforms suggestive of infrageniculate disease. Recommend follow up prn unless clinically indicated. ++++++++++++++++++++++++++++++++++++ MEASUREMENTS: ++++++++++++++++++++++++++++++++++++ ?DOPPLER Left Dist CHIEF SECURITY OFFICER ?? Dist CHIEF SECURITY OFFICER PSV ?58.8 cm/s ? Left Dist BHUMI ?? Dist BHUMI PSV ?50.3 cm/s ? Right Dist CHIEF SECURITY OFFICER ?? Dist CHIEF SECURITY OFFICER PSV ?50.8 cm/s ? Right Dist BHUMI ?? Dist BHUMI PSV ?73.8 cm/s ?PRESSURES Right Brachial ?? Brach P ?118 mmHg ? Right Ankle DP ?? AnkleDP P ?124 mmHg ? Right Ankle PT ?? AnklePT P ?140 mmHg ? Right KENZIE PT ?? KENZIE PT ?1.11 ? Right KENZIE DP ?? KENZIE DP ? 0.984 ? Left Brachial ?? Brach P ?126 mmHg ? Left Ankle DP ?? AnkleDP P ?146 mmHg ? Left Ankle PT ?? AnklePT P ?160 mmHg ? Left KENZIE PT ?? KENZIE PT ?1.27 ? Left KENZIE DP ?? KENZIE DP ?1.16 ? Signed 01/02/2018 07:09 AM Caesar Aguayo M.D. Procedure Note Caesar Aguayo MD - 01/02/2018 ARTERIAL DOPPLER - KENZIE BILATERAL LOWER EXTREMITY VASCULAR LAB Pat.Name: ARNOLD CRUZ Pat.ID: [id number] .Date: 12/31/2017 Refer.MD: ASA MCNAMARA Exam Time: 8:43:00 AM Study Type:SCOTTIE VS Arterial Doppler KENZIE LTD Age: 2 1960,57Y Sex: FEMALE Sonogrphr: Elida Baldwin RVT Pat. Stat.:Outpatient History / Clinical:Follow up PAD, s/p BCIA balloons w/ LCIA stent on 12/06; Prior BCIA stents 06/2016; LCEA 2014; Prior studies preop 11/2017 w/ ABIs Rt 1.03/.96, Lt .83/.70, Stent veloc >300 bilat; PMH PAD, htn, hld, dm, cva, tob, copd, talita, joints Procedures:Doppler waveforms, Digit PPG, Systolic Pressures w/KENZIE [...] drop) Right leg: Common Femoral waveform is not assessed; Popliteal not assessed; Posterior Tibial triphasic, medium amplitude with KENZIE 1.11 ; DP/Anterior Tibial biphasic, medium amplitude with KENZIE 0.984 . Digit flow by PPG is not recorded . Left leg: Common Femoral waveform is not assessed; Popliteal not assessed; Posterior Tibial biphasic, medium amplitude with KENZIE 1.27 ; DP/Anterior Tibial biphasic, medium amplitude with KENZIE 1.16 . Digit flow by PPG is not recorded . SEE DUPLEX SCAN REPORT DONE TODAY. CONCLUSION: KENZIE right leg 1, in the range of no ischemia. Waveforms suggestive of infrageniculate disease. KENZIE left leg 1.3, in the range of no ischemia. Waveforms suggestive of infrageniculate disease. Recommend follow up prn unless clinically indicated. ++++++++++++++++++++++++++++++++++++ MEASUREMENTS: ++++++++++++++++++++++++++++++++++++ DOPPLER Left Dist CHIEF SECURITY OFFICER Dist CHIEF SECURITY OFFICER PSV 58.8 cm/s Left Dist BHUMI Dist BHUMI PSV 50.3 cm/s Right Dist CHIEF SECURITY OFFICER Dist CHIEF SECURITY OFFICER PSV 50.8 cm/s Right Dist BHUMI Dist BHUMI PSV 73.8 cm/s PRESSURES Right Brachial Brach P 118 mmHg Right Ankle DP AnkleDP P 124 mmHg Right Ankle PT AnklePT P 140 mmHg Right KENZIE PT KENZIE PT 1.11 Right KENZIE DP KENZIE DP 0.984 Left Brachial Brach P 126 mmHg Left Ankle DP AnkleDP P 146 mmHg Left Ankle PT AnklePT P 160 mmHg Left KENZIE PT KENZIE PT 1.27 Left KENZIE DP KENZIE DP 1.16 Signed 01/02/2018 07:09 AM Caesar Aguayo M.D. Asa Mcnamara MD [facility] Final Result documented in this encounter Visit Diagnoses Diagnosis PVD (peripheral vascular disease) (CMS/HCC)- Primary Peripheral vascular disease, unspecified Symptoms involving cardiovascular system Other symptoms involving cardiovascular system PVD (peripheral vascular disease) (CMS/HCC) Peripheral vascular disease, unspecified Symptoms involving cardiovascular system Other symptoms involving cardiovascular system documented in this encounter Care Teams Shirt Folding Machine Operator Relationship Specialty Start Date End Date Deisi Andrews MD [address] [place] [address] [place] [address] PCP - General FAMILY PRACTICE 06/15/17 10/14/19 Asa Mcnamara MD [facility]. [facility] [address] [place] [address] Stephen Private Branch Exchange Repairer CARDIOVASCULAR DISEASE 05/15/16 documented as of this encounter
--- OUTSIDE RECORDS SUMMARY | 2024-11-12 04:47 | XMS_ITS | Encounter Summary ---
Author Organization [facility] Address [facility] [facility] [place] [address] [place] [address] Care Team Providers Care Finished Yarn Examiner Name Role Phone Asa Mcnamara MD Unavailable [phone] , Heber Trinidad MD Primary Care Provider Unavailable Reason for Visit * Reason Comments Peripheral Vascular Disease follow up te sting/ surgical clearance Hypertension Lipids Encounter Details Date Type Department Care Team (Late st Contact Info) Description 05/17/2017 11:45 AM CDT Office Visit [facility] AT [address] [address] Asa Mcnamara MD [address] [address] Peripheral Vascular Disease (follow up testing/ surgical clearance ); Hypertension; Lipids Social History Tobacco Use Types Packs/Day Years Used Date Smoking Tobacco: Every Day Cigarettes Smokeless Tobacco: Never Alcohol Use Standard Drinks/Week Comments No 0 (1 standard drink = 0.6 oz pur e alcohol) Comments Unknown Sex and Gender Information Value Date Recorded Sex Assigned at Female 12/06/2019 3:36 PM JAILER CHIEF Legal Sex Female 5:20 PM CDT Gender Identity Female 12/06/2019 3:36 PM JAILER CHIEF Sexual Orientation Straight 12/06/2019 3: 36 PM JAILER CHIEF Occupation Industry Job Start Date Job End Date Not on file Not on file Not on file Not on file documented as of this encounter Last Filed Vital Signs Vital Sign Reading Time Taken Comments Blood Pressure 110/80 05/17/2017 1:33 PM CDT ret aken by Pulse 98 05/17/2017 12:01 PM CDT Temperature - - Respiratory Rate - - Oxygen Saturation 95% 05/17/2017 12:01 PM CDT Inhaled Oxygen Concentration - - Weight 105.2 kg (232 lb) 05/17/2017 12:01 PM CDT Height 160 cm (5' 3 ) 05/17/2017 12:01 PM CDT Body Mass Index 41.1 05/17/2017 12:01 PM CDT documented in this encounter Patient Instructions * Patient Instructions* Vidadebbie Schultz - 05/17/2017 11:45 AM CDT Images from the original note were not included. Index Cymraes Related??topics Blood Pressure COPELAND POINTS ?? Blood pressure is the force of blood against artery calvin as the heart pumps blood through the body. ?? Most people with high blood pressure have no symptoms. ?? If your blood pressure is too high, your healthcare provider may advise that you lose excess weight, use less salt in your food, be physically active, or take medicine. ?? If you have low blood pressure that is causing symptoms, do not skip meals, drink plenty of liquids, and stand up slowly after laying down. What is blood pressure? Blood pressure is the force of blood against artery calvin as the heart pumps blood through the body. Many people can improve their blood pressure or prevent high blood pressure with diet changes, more activity, and weight loose if needed. Even if you have a strong family history of high blood pressure, you can improve your blood pressure with a healthy lifestyle. Blood pressure can go up briefly with exercise, stress, pain, or strong emotions. Drinking alcohol or using some illegal drugs, like cocaine, can also raise blood pressure. Blood pressure normally goes down when you are resting, sleeping, or feeling calm and relaxed. It can also go down if you are dehydrated and are not drinking enough liquids, such as if you are working or exercising in the hot sun. How is blood pressure measured? Most people with high blood pressure have no symptoms. The only way to find out if your blood pressure is normal, too high, or too low is to have it measured. Your healthcare provider measures blood pressure using an inflatable cuff around your upper arm and either a stethoscope or a machine that shows the result. ?? Low blood pressure usually means blood pressure that is lower than 90/60 or is low enough to cause symptoms. The first, upper number (90 in this example) is the pressure when the heart beats and pushes blood out to the rest of the body. The second, lower number (60 in this example) is the pressure when the heart rests between beats. Low blood pressure is less common than high blood pressure. ?? Normal resting blood pressure ranges up to 120/80 (???120 over 80 ). ?? Borderline high blood pressure is 120/80 or higher but less than 140/90. ?? High blood pressure is 140/90 or higher for most people. If you have chronic kidney disease, 130/80 or higher is considered high blood pressure. Why is high blood pressure a problem? Over time, if your blood pressure rises and stays high, it can damage your blood vessels, heart, brain, kidneys, and eyes even though you may have no symptoms. The higher your blood pressure is, the more it increases your risk of heart attack, stroke, and other serious medical problems. If you have high blood pressure, lowering it and keeping it normal can help prevent a heart attack or stroke. Keeping your blood pressure under control can help prevent long-term health problems as well, such as heart failure, kidney failure, and blindness. How can I keep my blood pressure at the right level? If your blood pressure is too high, your provider may recommend lifestyle changes to help you loweryour blood pressure, such as: ?? Lose excess weight. If you are overweight, losing even 10 pounds can lower your blood pressure. ?? Use less salt (sodium) in your food. Check the levels of sodium listed on food labels. Most of the sodium you eat may be hidden in processed foods such as chips, crackers, canned or boxed foods, fast food, or restaurant food. ?? Follow a healthy eating plan that is low in saturated fat, cholesterol, and processed foods. Include lots of fruits, vegetables, and fat-free or low-fat milk and milk products. Eat only enough calories to reach or keep a healthy weight. Ask your healthcare provider about how many calories you should eat each day. ?? Be physically active. Your provider can give you a physical activity plan that tells you what kind of activity and how much is safe for you. ?? Find ways to relax and to manage stress. ?? If you smoke, try to quit. Talk to your healthcare provider about ways to quit smoking. Smoking with high blood pressure raises the risk of heart attack and stroke. ?? If you want to drink alcohol, ask your healthcare provider how much is safe for you to drink. ?? Be careful with nonprescription medicines or herbal supplements. Some can raise blood pressure. This includes diet pills, cold and pain medicines, and energy drinks. Read labels or ask your pharmacist if the medicine or supplement affects blood pressure. ?? If lifestyle changes don???t lower your blood pressure enough, your healthcare provider may prescribe one or more types of blood pressure medicine. Always follow your healthcare provider's instructions for taking medicine. Don't take more or less medicine or stop taking a medicine without talking to your provider first. It can be dangerous to stop taking certain blood pressure medicines suddenly. If you have low blood pressure that is causing symptoms, after your healthcare provider has seen you, try these tips: ?? Don???t skip meals. Eat a healthy diet. ?? Avoid being out in the heat for a long time or being too active without drinking enough liquids. ?? Drink plenty of liquids every day, especially in hot weather or when outside. ?? If you have been lying down, sit for a moment before standing up, and then stand up slowly. Stand a moment before walking. Walk in place briefly while pulling in your stomach muscles several times. (This helps the return of blood flow from the legs.) If your blood pressure is normal, check it at least once a year. Your provider may recommend checking your blood pressure at home between checkups. Developed by Who@. Adult Advisor 2017.1 published by Who@. Last modified: 2016-03-05 Last reviewed: 2016-02-28 This content is reviewed periodically and is subject to change as new health information becomes available. The information is intended to inform and educate and is not a replacement for medical evaluation, advice, diagnosis or treatment by a healthcare professional. References Adult Advisor 2017.1 Index Copyright ?? 2017 Who@, a division of [employer]. All rights reserved. documented in this encounter Progress Notes * Asa Mcnamara MD - 05/17/2017 11:45 AM CDT Chief Complaint: Peripheral Vascular Disease (follow up testing/ surgical clearance ); Hypertension; and Lipids Recommendations/Plan: ASSESSMENT: 1. Bilateral lower extremity peripheral vascular disease, bilateral iliac stents in 06/2016. ?? 2. Bilateral carotid artery disease, left carotid endarterectomy in 2014. 3. History of stroke. 4. Hypertension, well controlled. ?? 5. Mixed hyperlipidemia, on statin. ?? 6. Type 2 diabetes mellitus. ?? 7. Likely COPD. ?? 8. Lower leg edema 9. Bilateral knee arthritis, possible surgery in the future. ? RECOMMENDATIONS/PLAN: Ms. Zaidi continues to have discomfort in the right leg. Description is not very typical. Recent angiogram shows a widely patent stent in the iliac arteries with no significant translesional gradient. He will continue with medical management. Continue cilostazol. Blood pressure is well controlled. Continue current regimen. She is on now moderate intensity statin. She complains of dyspnea on mild exertion. On exam she has trace pitting edema. I will restart furosemide with potassium supplements. Recheck basic metabolic panel in 2 weeks. Recommended compressionstockings. She does not have significant infrainguinal arterial disease. Ms. Zaidi is scheduled to undergo knee surgery for the next 2 months. She is not reporting significant ischemic symptoms. Functional capacity is limited.??Stress test done in 2015 showed normal myocardial perfusion. She will be at low risk of perioperative cardiac events. No further cardiac testingis indicated right to surgery. ??Ms. Zaidi had left carotid endarterectomy in 2014. Follow-up duplex scan shows no significant stenosis in either carotid artery. We will continue with close clinical follow-up and repeat Doppler studies periodically. ?? History is suggestive of sleep apnea. She may benefit from an outpatient sleep study. ? It has been my pleasure to participate in Ms. Zaidi's care. She will return for a follow-up visit in 4 weeks, earlier if needed. Thank you for the consultation. ??History of Present Illness: Ms. Zaidi is a pleasant 56-year-old female with type 2 diabetes mellitus, hypertension and dyslipidemia. She underwent bilateral iliac stents in 06/2016. She was seen in March, she was complaining of exertional right leg pain. Doppler studies were suggestive of moderate in-stent restenosis in the right common iliac artery. She underwent vascular angiogram last month which showed widely patent stents and no significant pressure gradient. We decided to treat her medically. She was complaining of swelling in the legs. I started her on furosemide. Her swelling got better, she stopped taking the diuretic. She was subsequently admitted at [facility] and treated for pneumonia with antibiotics and steroids. Scheduled to undergo knee surgery in the next few months. Preoperative cardiac evaluation has been requested. She denies chest pain. She complains of dyspnea with mild activity. Sheis not able to walk more than 200 feet. She gets out of breath and also complains of discomfort in her right leg. She quit smoking last month. She has had one or 2 cigarettes since then. ?? DATA REVIEWED: EKG done on 05/17/2017. Sinus rhythm, normal intervals. Normal ECG. Vascular angiogram done 04/22/2017. Patent bilateral common iliac stents with no significant pressure gradient. No significant disease noted in femoral-popliteal and infrapopliteal vessels bilaterally. Arterial Doppler done 03/11/2017. KENZIE 1.19 in the right leg with a TBI of 0.94. Triphasic waveformsat common femoral, popliteal, posterior tibial and anterior tibial arteries. KENZIE 1.27 and the left leg with a TBI of 0.94. Triphasic waveforms at common femoral, popliteal, posterior and anterior tibial arteries. Post ambulation, right TBI decreases by 0.21, left decreases by 0.17. Patient exercised to 3.75 minutes and experienced bilateral thigh pain. Aortoiliac duplex on 03/11/2017. 50-75% stenosis right common iliac, with a PSV of 210 cm/s and ratio of 2.2. Mild stenosis right external iliac. No significant stenosis left common and external iliac arteries. Carotid duplex done 08/25/2016. No significant stenosis bilateral internal carotid arteries. Vertebral artery flow is antegrade bilaterally. No evidence of ulceration. On 07/01/16 she underwent bilateral iliac stents. A 7.0 x 27 mm stent in the right common iliac artery post dilated with a 8.0 x 40 mm balloon. A 7.0 x 37 mm stent deployed in the left common iliac artery. 12-lead EKG done 04/08/2016 shows sinus rhythm, possible high lateral infarct. This could be incorrect lead placement. Occasional supraventricular ectopic beats, no significant ST abnormalities. ?? Echocardiogram done 04/17/2016 shows EF 65-70%, Mild concentric LVH. Grade I diastolic dysfunction, trace mitral regurgitation, mild tricuspid regurgitation. RVSP 35 mm Hg. ?? Pharmacologic myoview Stress test done 04/20/2016: Clinically and electrocardiographically negative stress test. Normal myocardial perfusion, EF 69%. ? Medications: Current Outpatient Prescriptions: ??? cilostazol 50 MG tablet, Take 1 tablet (50 mg total) by mouth 2 (two) times daily., Disp: , Rfl: ??? COMPRESSION STOCKINGS, 15-20 mm Hg compression knee highs 2 pairs, Disp: 2 Container, Rfl: 0 ??? furosemide 20 MG tablet, Take 1 tablet (20 mg total) by mouth daily., Disp: 30 tablet, Rfl: 3 ??? potassium chloride CR (POTASSIUM CHLORIDE) 10 MEQ tablet, Take 1 tablet (10 mEq total) by mouthdaily., Disp: 30 tablet, Rfl: 3 ??? albuterol [...] by mouth daily., Disp: , Rfl: ??? cyclobenzaprine 10 MG tablet, Take 1 tablet (10 mg total) by mouth 3 (three) times daily as needed for Muscle Spasms., Disp: , Rfl: ??? fexofenadine (SAMANTHA ALLERGY) 180 MG tablet, Take 1 tablet (180 mg total) by mouth daily., Disp: , Rfl: ??? fluoxetine (PROZAC) 20 MG capsule, Take 1 capsule by mouth daily., Disp: , Rfl: ??? ibuprofen 600 MG tablet, Take 1 tablet (600 mg total) by mouth every 8 (eight) hours as needed for Pain., Disp: , Rfl: ??? isosorbide mononitrate ER 30 MG 24 hr tablet, Take 1 tablet (30 mg total) by mouth daily., Disp: , Rfl: ??? losartan 100 MG tablet, Take 1 tablet by mouth daily., Disp: , Rfl: ??? metFORMIN 500 MG tablet, Take 1 tablet by mouth 2 (two) times daily., Disp: , Rfl: ??? metoprolol succinate 25 MG 24 hr tablet, Take 1 tablet (25 mg total) by mouth daily., Disp: , Rfl: ??? Multiple Vitamins-Minerals (PRESERVISION AREDS) capsule, Take 1 capsule by mouth 2 (two) times daily., Disp: , Rfl: ??? nitroGLYCERIN 0.4 MG SL tablet, Place 1 tablet (0.4 mg total) under the tongue every 5 (five) minutes as needed for Chest Pain (Maximum of 3 doses.). If no relief, contact 911., Disp: , Rfl: ??? pravastatin 40 MG tablet, Take 1 tablet by mouth daily., Disp: , Rfl: Allergies Allergen Reactions ??? Haloperidol Seizure ??? Penicillins Redness ??? Resperal-Dm [Lps-Gx-Arh-Propyl Wnbbqk-Vbj-Bvzojwkth] Seizure ??? Triazolam Seizure Past Medical History: Diagnosis Date ??? Arthritis ??? Asthma ??? Chest pain, unspecified ??? Diabetes ??? Emphysema/COPD ??? Essential (primary) hypertension ??? GERD (gastroesophageal reflux disease) ??? Hypercholesterolemia ??? Migraines ??? PVD (peripheral vascular disease) ??? Stroke h/o Past Surgical History: Procedure Laterality Date ??? SECTION 1989 ??? GALLBLADDER SURGERY 2007 removal ??? IR ANGIOPLASTY PERIPHERAL ??? OTHER PROCEDURE 2011 warts removed ??? OTHER PROCEDURE 2013 tube in left ear ??? TUBAL LIGATION 1989 Social History Social History ??? Marital status: Single Spouse name: N/A ??? Number of children: 2 ??? 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 Smoking status: Current Every Day Smoker Packs/day: 0.50 Types: Cigarettes ??? Smokeless tobacco: Never Used ??? Alcohol use No ??? Drug use: Yes Special: Marijuana ??? Sexual activity: Not on file Other Topics Concern ??? Caffeine Concern Yes coffee 4x a day ??? Special Diet No ??? Exercise No Social History Narrative Family History Problem Relation Age of Onset ??? Heart Attack Sister 55 ??? Stent Sister 56 Family Status Relation Status ??? Mother at age 63 ??? Father at age 56 ??? Sister ??? Brother at age 48 Review of Systems Constitutional: Negative for malaise/fatigue and weight loss. HENT: Negative for hearing loss. Eyes: Negative for blurred vision and double vision. Respiratory: Positive for shortness of breath. Negative for cough, hemoptysis and wheezing. Cardiovascular: Positive for chest pain. Negative for palpitations. Gastrointestinal: Negative for blood in stool and melena. Genitourinary: Negative for dysuria. Musculoskeletal: Positive for joint pain and myalgias. Skin: Negative for rash. Neurological: Positive for tingling and headaches. Negative for sensory change and focal weakness. Endo/Heme/Allergies: Positive for polydipsia. Does not bruise/bleed easily. Filed Vitals: 05/17/17 1201 05/17/17 1333 BP: 128/84 110/80 Pulse: 98 SpO2: 95% Weight: 105.2 kg (232 lb) Height: 5' 3 (1.6 m) Physical [...] for this visit on 08/12/16. Diagnoses/Impression: 1. Preop cardiovascular exam ELECTROCARDIOGRAM (NON [place]MARK ACQUIRED) BASIC METABOLIC PANEL 2. Essential (primary) hypertension ELECTROCARDIOGRAM (NON [place]MARK ACQUIRED) BASIC METABOLIC PANEL 3. PVD (peripheral vascular disease) with claudication 4. Hyperlipidemia, mixed 5. Lower leg edema documented in this encounter Plan of Treatment Not on file documented as of this encounter Procedures Procedure Name Priority Date/Time Associated Diagnosis Comments BASIC METABOLIC PANEL Routine 06/01/2017 Essential (primary) hypertension Preop cardiovascular exam ELECTROCARDIOGRAM (NON [facility]MARK ACQUIRED) Routine 05/17/2017 Essential (primary) hypertension Preop cardiovascular exam documented in this encounter Results * BASIC METABOLIC PANEL (06/01/2017) SODIUM S/P/B 141 POTASSIUM S/P/B 3.7 CO2 29 CHLORIDE S/P/B 100 GLUCOSE 312 CALCIUM S/P/B 9.4 BUN 14 CREATININE S/P/B 0.94 0.5 - 1.0 EGFR AFR. AMER. 79 <=90 EGFR NON-AFR. AMER. 68 <=90 06/01/2017 Asa Mcnamara MD LABORATORY Final Result * ELECTROCARDIOGRAM (05/17/2017) Asa Mcnamara MD PROCEDURES-ORDERABLE NO KATLYN GE Final Result documented in this encounter Visit Diagnoses Diagnosis Preop cardiovascular exam- Primary Pre-operative cardiovascular examination Essential (primary) hypertension Unspecified essential hypertension PVD (peripheral vascular disease) with claudication ([facility]) Peripheral vascular disease, unspecified Hyperlipidemia, mixed Mixed hyperlipidemia Lower leg edema Edema documented in this encounter Care Teams Finished Yarn Examiner Relationship Specialty Start Date End Date Heber Adorno MD PCP - General 03/11/17 06/14/17 Asa Mcnamara MD [address] [address] [place] [employer] Tender CARDIOVASCULAR DISEASE 05/15/16 documented as of this encounter
--- OUTSIDE RECORDS SUMMARY | 2024-11-12 04:47 | XMS_ITS | Encounter Summary ---
Author Organization [facility] Address [address] [facility] [address] [place] [address] Care Team Providers Care Hot Box Operator Name Role Phone Asa Mcnamara MD Unavailable [phone] Heber Adorno MD Primary Care Provider Unavailable Reason for Visit * Reason Onset Date Comments Surgical Clearance 05/12/2017 Encounter Details Date Type Department Care Team (Late st Contact Info) Description 05/12/2017 Telephone [facility] [address] [address] Asa Mcnamara MD [address] [address] Surgical Clearance Social History Tobacco Use Types Packs/Day Years Used Date Smoking Tobacco: Every Day Cigarettes Smokeless Tobacco: Never Alcohol Use Standard Drinks/Week Comments No 0 (1 standard drink = 0.6 oz pur e alcohol) Comments Unknown Sex and Gender Information Value Date Recorded Sex Assigned at Female 12/06/2019 3:36 PM DRY WALL INSTALLATIONS MECHANIC Legal Sex Female 5:20 PM CDT Gender Identity Female 12/06/2019 3:36 PM DRY WALL INSTALLATIONS MECHANIC Sexual Orientation Straight 12/06/2019 3: 36 PM DRY WALL INSTALLATIONS MECHANIC Occupation Industry Job Start Date Job End Date Not on file Not on file Not on file Not on file documented as of this encounter Progress Notes * Porsha David - 05/12/2017 10:57 AM CDT Received fax request from Dr. Jarrett Fowler requesting cardiac clearance for total knee arthroplst to be done in July 2017, Patient advised that clearance will be addressed at her 05/17/[address] Mcnamara. documented in this encounter Plan of Treatment Not on file documented as of this encounter Visit Diagnoses Not on filedocumented in this encounter Care Teams Hot Box Operator Relationship Specialty Start Date End Date Heber Adorno MD PCP - General 03/11/17 06/14/17 Asa Mcnamara MD [id number] [place] [address] [employer] Marine Equipment Engineer CARDIOVASCULAR DISEASE 05/15/16 documented as of this encounter
--- OUTSIDE RECORDS SUMMARY | 2024-11-12 04:47 | XMS_ITS | Encounter Summary ---
Author Organization [facility] Address [address]. [place], [place] [address] [place] [address] Care Team Providers Care Manager Of Distribution Name Role Phone Asa Mcnamara MD Unavailable [phone] Deisi Andrews MD Primary Care Provider [phone] Reason for Referral * Procedure (Routine) - Closed Specialty Diagnoses / Procedures Referred By Nacho t Referred To Contact CARDIOLOGY Diagnoses PVD (peripheral vascular disease) with claudication ([facility]/HCC) Procedures XA DILEEP LEG ANGIOGRAM POSS Asa Mcnamara MD [facility]. [facility] [address] [place] [address] Phone: tel: fax: [place] [address] Phone: tel: Referral ID Status Reason Start Date Expiration Date Visits Re quested Visits Authorized [id number] Closed 11/25/2017 01/06/2018 1 1 [employer] EM[employer]EE COMM[employer]ICATION[employer] Reason for Visit * Reason Comments Peripheral Vascular Disease fu from test ing Encounter Details Date Type Department Care Team (Late st Contact Info) Description 11/25/2017 11:30 AM DIRECTOR EMPLOYEE COMMUNICATIONS Office Visit [facility], [facility] [address] [place] [address] Asa Mcnamara MD Three [facility]. [facility] [address] [place] [address] Peripheral Vascular Disease (fu from testing) Social History Tobacco Use Types Packs/Day Years Used Date Smoking Tobacco: Every Day Cigarettes Smokeless Tobacco: Never Comments:2 cig a day Alcohol Use Standard Drinks/Week Comments No 0 (1 standard drink = 0.6 oz pur e alcohol) Comments Unknown Sex and Gender Information Value Date Recorded Sex Assigned at Female 12/06/2019 3:36 PM DIRECTOR EMPLOYEE COMMUNICATIONS Legal Sex Female 5:20 PM CDT Gender Identity Female 12/06/2019 3:36 PM DIRECTOR EMPLOYEE COMMUNICATIONS Sexual Orientation Straight 12/06/2019 3: 36 PM DIRECTOR EMPLOYEE COMMUNICATIONS Occupation Industry Job Start Date Job End Date Not on file Not on file Not on file Not on file documented as of this encounter Last Filed Vital Signs Vital Sign Reading Time Taken Comments Blood Pressure 108/70 11/25/2017 11:32 AM DIRECTOR EMPLOYEE COMMUNICATIONS re taken by Pulse 80 11/25/2017 10:48 AM DIRECTOR EMPLOYEE COMMUNICATIONS Temperature - - Respiratory Rate - - Oxygen Saturation 95% 11/25/2017 10:48 AM DIRECTOR EMPLOYEE COMMUNICATIONS Inhaled Oxygen Concentration - - Weight 99.3 kg (219 lb) 11/25/2017 10:48 AM DIRECTOR EMPLOYEE COMMUNICATIONS Height 160 cm (5' 3 ) 11/25/2017 10:48 AM DIRECTOR EMPLOYEE COMMUNICATIONS Body Mass Index 38.79 11/25/2017 10:48 AM DIRECTOR EMPLOYEE COMMUNICATIONS documented in this encounter Patient Instructions * Patient Instructions* Xin Montes - 11/25/2017 11:30 AM DIRECTOR EMPLOYEE COMMUNICATIONS Images from the original note were not included. Peripheral Artery Disease and Claudication The Basics Written by the doctors and editors at [facility] What is peripheral artery disease???--??Peripheral artery disease [...] of getting PAD, such as those who: ?Smoke ?Have diabetes ?Have high cholesterol ?Have high blood pressure What are the symptoms of PAD???--??PAD often causes pain in the back of the lower leg. The pain usually gets worse with walking and exercise, and gets better with rest. PAD can also cause pain in thefeet, thighs, or buttocks. People who have leg pain can have other symptoms, too, such as: ?Trouble walking up stairs ?Trouble getting an erection (in men) or trouble with sexual arousal (in women) Symptoms of claudication can be mild or severe, depending on: ?Which arteries are affected ?How narrow the arteries are ?How much activity a person does Is there a test for PAD???--??Yes. Your doctor or nurse can do different tests to find out if you have PAD, and to check how severe it is. He or she might: ?Take the blood pressure in your arm and ankle at rest and right after exercise, and compare them ?Take the blood pressure in your thigh or lower leg ?Order a blood vessel imaging test such as an ultrasound, which can show pictures of your leg arteries How can I help treat my PAD???--??To help treat your PAD and prevent it from getting worse, you can: ?Stop smoking ?Get your diabetes, high blood pressure, and high cholesterol under control (if you have these conditions) ?Exercise - Doctors recommend that most people with PAD exercise each day. Ask your doctor or nursewhich type of exercise is right for you. What other treatments might I have???--??Along with exercise and getting medical conditions under control, most people are treated with medicines. The medicines used to treat PAD can reduce symptoms,increase blood flow to the legs, and help people walk farther without pain. Most doctors ask their patients to try a medicine called cilostazol (brand name: Pletal). But people who have certain heartproblems cannot take cilostazol and must take a different medicine. Most people with PAD also need to take aspirin every day to help prevent blood clots. People who can't take aspirin can take a different medicine instead. If you still have severe symptoms after trying medicines, your doctor will talk with you about the possibility of having surgery or a procedure to increase blood flow to your legs and feet. Your treatment options might include: ?Angioplasty or stenting - During angioplasty or stenting, the doctor sends a thin tube with a balloon at the end of it to the part of the artery that is blocked. Then the doctor inflates the balloonto open the blockage. Often the doctor props open the artery using a tiny mesh tube called a stent,which stays in the body. Some special balloons and stents also release medicine to help the artery stay open longer. ?Bypass surgery - During bypass surgery, the doctor removes a piece of blood vessel (vein) from another part of the body. Then he or she reattaches that piece of blood vessel (called a vein graft) above and below the area that is clogged. This re-routes blood around the clog, and allows it to get to the part of the leg that was [...] your doctor offers you a choice, ask: ?What are the benefits of each procedure for me? ?What are the downsides of each procedure for me? ?What happens if I do not have any procedure? All topics are updated as new evidence becomes available and our peer review process is complete. This topic retrieved from [employer] on: Jun 01, 2017. Topic 08101 Version 6.0 Release: 25.3 - C25.159 ?2017??[employer].??All rights reserved. figure 1: Peripheral artery disease Graphic 49359 Version 6.0 Consumer Information Use and Disclaimer [...] that is right for you.The use of [employer] content is governed by the [employer] Terms of Use. ??2017 [employer]. All rights reserved. Copyright ?2017??[employer].??All rights reserved. [employer] EM[employer]EE COMMUNICATION[employer] documented in this encounter Progress Notes * Asa Mcnamara MD - 11/25/2017 11:30 AM CST Chief Complaint: Peripheral Vascular Disease (fu from testing) Recommendations/Plan: ASSESSMENT: 1. Bilateral lower extremity peripheral vascular disease, bilateral iliac stents in 06/2016. ?? 2. Carotid artery disease, left carotid endarterectomy in 2014. 3. History of stroke. 4. Hypertension, well controlled. ?? 5. Mixed hyperlipidemia, on statin. ?? 6. Type 2 diabetes mellitus. ?? 7. Likely COPD. ?? 8. Lower leg edema 9. Bilateral knee arthritis, possible surgery in the future. ?? 10. Obstructive sleep apnea, not on CPAP. ?? RECOMMENDATIONS/PLAN: Ms. Zaidi reports lifestyle limiting claudication symptoms. Aortoiliac duplexsuggestive of severe in-stent restenosis in bilateral common iliac arteries. She needs further evaluation. She will be scheduled for angiogram. I have explained the procedure, risks, benefits, complications, not limited to , myocardial infarction, stroke, bleeding, renal failure, need for surgery. Patient verbalizes understanding and agrees to proceed. Continue aspirin and cilostazol. She needs aggressive risk factor modification. Blood pressure is well controlled. I recommended increasingpravastatin to 80 mg daily. She was not able to tolerate simvastatin. Counseled about quitting smoking. Ms. Zaidi had left carotid endarterectomy in 2014. Follow-up duplex scan shows moderate disease in right ICA. We will continue with close clinical follow-up and repeat duplex study in 6 months. She appears stable from a heart failure standpoint. Her weight is down 10 pounds compared to last visit. Her breathing has improved. She has significant history of smoking and likely COPD. Shortness of breath is also due to underlying lung disease. Continue furosemide at the current dose. Renal function is stable. Lipid panel is significant for markedly elevated triglycerides. I would recommend adding fenofibrate and fish oil supplements. ?? Patient had sleep study last year. ? It has been my pleasure to participate in Ms. Zaidi's care. Further recommendations be based on thefindings of the angiogram. Thank you for the consultation. ??History of Present Illness: Ms. Zaidi is a pleasant 56-year-old female with type 2 diabetes mellitus, hypertension and dyslipidemia and peripheral vascular disease. She returns for a scheduled follow-up visit. She reports improvement in her breathing. She denies chest pain, leg swelling. She has lost 10 pounds since her last visit. She complains of discomfort in her legs with walking. Functional capacity is significantly limited. She has to stop at 50 feet because of pain in her legs. The right leg is worse than the left.No history of rest pain or nonhealing ulcers. Unfortunately she continues to smoke. ?? DATA REVIEWED: EKG done on 05/17/2017. Sinus rhythm, normal intervals. Normal ECG. Holter monitor done 06/22/2017. Sinus rhythm with episodes of sinus tachycardia. No significant ectopy or arrhythmias noted. Symptoms do not correlate with any significant rhythm abnormality. Arterial Doppler done 11/19/2017. KENZIE 1.03 in the right leg with a TBI of 0.67. Triphasic waveforms at common femoral, popliteal, posterior tibial and anterior tibial arteries. KENZIE 0.83 in the left legwith a TBI of 0.54. Monophasic waveforms at common femoral, popliteal, posterior tibial and anterior tibial arteries. Aortoiliac duplex done 11/19/2017. 76-99% stent restenosis right common iliac artery. PSV 308 cm/s, ratio 3.9. 76-99% in-stent restenosis left common iliac artery. PSV 394 cm/s, ratio 2.8. No significant disease bilateral external iliac arteries. Carotid Doppler ultrasound done 11/19/2017. 50-79% stenosis right ICA. PSV 179 cm/s, ratio 2.46. No significant disease left ICA. Vertebral artery flow is antegrade bilaterally. No evidence of ulceration. Vascular angiogram done 04/22/2017. Patent bilateral common iliac stents with no significant pressure gradient. No significant disease noted in femoral-popliteal and infrapopliteal vessels bilaterally. On 07/01/16 she underwent bilateral iliac stents. A 7.0 x 27 mm stent in the right common iliac artery post dilated with a 8.0 x 40 mm balloon. A 7.0 x 37 mm stent deployed in the left common iliac artery. Echocardiogram done 04/17/2016 shows EF 65-70%, Mild concentric LVH. Grade I diastolic dysfunction, trace mitral regurgitation, mild tricuspid regurgitation. RVSP 35 mm Hg. ?? Pharmacologic myoview Stress test done 04/20/2016: Clinically and electrocardiographically negative stress test. Normal myocardial perfusion, EF 69%. Lab Results Component Value Date/Time CHOL 186 11/19/2017 09:48 AM TRI 602 (H) 11/19/2017 09:48 AM HDL 30 (L) 11/19/2017 09:48 AM LDL NOT CALCULATED 11/19/2017 09:48 AM NA 137 11/19/2017 09:48 AM K 3.8 11/19/2017 09:48 AM BUN 10 11/19/2017 09:48 AM CR 0.76 11/19/2017 09:48 AM GLU 136 (H) 11/19/2017 09:48 AM ALT 31 04/27/2017 WBC 9.2 04/28/2017 HGB 13.5 04/28/2017 PLT 235 04/28/2017 TSH 3.99 09/02/2016 08:13 AM ? Medications: Current Outpatient Prescriptions: ??? fenofibrate 160 MG tablet, Take 1 tablet (160 mg total) by mouth daily., Disp: 30 tablet, Rfl: 4 ??? Fish Oil 1000 MG Cap, Take 2,000 mg by mouth daily., Disp: , Rfl: ??? losartan 100 MG tablet, Take 1 tablet (100 mg total) by mouth daily., Disp: 30 tablet, Rfl: 3 ??? pravastatin 80 MG tablet, Take 1 tablet (80 mg total) by mouth nightly at bedtime., Disp: 30 tablet, Rfl: 4 ??? AEROSPAN 80 MCG/ACT Aero Soln, Inhale 1 puff into the lungs 2 (two) times daily., Disp: , Rfl: ??? albuterol sulfate HFA [...] Rfl: ??? fluoxetine 40 MG capsule, Take 1 capsule (40 mg total) by mouth daily., Disp: , Rfl: ??? furosemide 40 MG tablet, Take 1 tablet (40 mg total) by mouth daily., Disp: 30 tablet, Rfl: 3 ??? hydrocodone-acetaminophen 5-325 MG tablet, Take 1 tablet by mouth 2 (two) times daily., Disp: ,Rfl: ??? ibuprofen 600 MG tablet, Take 1 tablet (600 mg total) by mouth every 8 (eight) hours as needed for Pain., Disp: , Rfl: ??? isosorbide mononitrate ER 30 MG 24 hr tablet, Take 1 tablet (30 mg total) by mouth daily., Disp: 30 tablet, Rfl: 5 ??? metFORMIN 500 MG tablet, Take 1 [...] (If no relief after 3rd dose, contact 911.)., Disp: 25 tablet, Rfl: 1 ??? potassium chloride CR 20 MEQ tablet, Take 1 tablet (20 mEq total) by mouth daily., Disp: 30 tablet, Rfl: 3 ??? trazodone 50 MG tablet, Take 1 tablet by mouth as needed., Disp: , Rfl: Allergies Allergen Reactions ??? Haloperidol Seizure ??? Penicillins Redness ??? Resperal-Dm [Jcn-Lk-Hpy-Propyl Qsirte-Wwl-Wuorpharf] Seizure ??? Triazolam Seizure Past Medical History: [...] ??? Smoking status: Current Every Day Smoker Types: Cigarettes ??? Smokeless tobacco: Never Used Comment: 2 cig a day ??? Alcohol use No ??? Drug use: Yes Special: Marijuana ??? Sexual activity: Not Asked Other Topics Concern ??? Caffeine Concern Yes [...] 48 Review of Systems Constitutional: Negative for chills, fever, malaise/fatigue and weight loss. HENT: Negative for hearing loss. Eyes: Negative for blurred vision and double vision. Respiratory: Positive for wheezing. Negative for cough, hemoptysis and shortness of breath. Cardiovascular: Positive for claudication. Negative for chest pain, palpitations, orthopnea, leg swelling and PND. Gastrointestinal: Negative for abdominal pain, blood in stool, melena, nausea and vomiting. Genitourinary: Negative for dysuria, hematuria and urgency. Musculoskeletal: Positive for joint pain and myalgias. Negative for back pain. Skin: Negative for rash. Neurological: Positive for tingling. Negative for dizziness, sensory change, focal weakness, loss of consciousness and weakness. Endo/Heme/Allergies: Positive for polydipsia. Bruises/bleeds easily. Psychiatric/Behavioral: Negative for memory loss. Filed Vitals: 11/25/17 1048 11/25/17 1132 BP: 110/70 108/70 Pulse: 80 SpO2: 95% Weight: 99.3 kg (219 lb) Height: 5' 3 (1.6 m) Physical [...] 1. PVD (peripheral vascular disease) with claudication BASIC METABOLIC PANEL CBC W/DIFF AUTOMATED PROTHROMBIN TIME, VENOUS XA DILEEP LEG ANGIOGRAM POSS 2. Essential (primary) hypertension 3. Hyperlipidemia, mixed 4. Stenosis of right carotid artery 5. Hypertriglyceridemia [employer] EM[employer]OYEE COMMUNICATIONS documented in this encounter Plan of Treatment Pending Results Name Type Priority Associated Diagnoses Date /Time XA DILEEP LEG ANGIOGRAM POSS Cardiac Cath Routine PVD (peripheral vascular disease) with claudication 12/06/2017 3:50 PM DIRECTOR EMPLOYEE COMMUNICATIONS Scheduled Orders Name Type Priority Associated Diagnoses Orde r Schedule XA DILEEP LEG ANGIOGRAM POSS Cardiac Cath Routine PVD (peripheral vascular disease) with claudication Expected: 12/06/2017, Expires: 11/25/2018 documented as of this encounter Results * PROTHROMBIN TIME, VENOUS (12/01/2017 2:36 PM DIRECTOR EMPLOYEE COMMUNICATIONS) PROTIME 11.6 9.6 - 12.2 SEC 12/01/2017 4:18 PM DIRECTOR EMPLOYEE COMMUNICATIONS [facility] INR 1.1 12/01/2017 4:18 PM DIRECTOR EMPLOYEE COMMUNICATIONS [facility] Comment: Recommended INR Therapeutic Goals: ??2.0-3.0 Routine Therapy ??2.5-3.5 Mechanical Prosthetic Valves (High Risk) ??3.0-4.0 Acute MO (to prevent Systemic Embolism) The INR is used only for patients on stable oral anticoagulant therapy. It makes no significant contribution to the diagnosis or treatment of patients whose Protime is prolonged for other reasons. 12/01/2017 2:36 PM DIRECTOR EMPLOYEE COMMUNICATIONS us Asa Mcnamara MD LABORATORY Final Result [facility] [address] [place] [address], * CBC W/DIFF AUTOMATED (12/01/2017 2:36 PM DIRECTOR EMPLOYEE COMMUNICATIONS) [facility] WBC 8.4 4.8 - 10.8 x10'3/uL 12/01/2017 3:45 PM DIRECTOR EMPLOYEE COMMUNICATIONS [facility] RBC 4.46 4.20 - 5.40 x10'6/uL 12/01/2017 3:45 PM DIRECTOR EMPLOYEE COMMUNICATIONS [facility] HGB 12.7 12.0 - 16.0 G/DL 12/01/2017 3:45 PM [facility] HCT 38.2 38.0 - 48.0 % 12/01/2017 3:45 PM [facility] MCV 85.7 81.0 - 99.0 FL 12/01/2017 3:45 PM DIRECTOR EMPLOYEE COMMUNICATIONS [facility] MCH 28.5 27.0 - 31.0 PG 12/01/2017 3:45 PM DIRECTOR EMPLOYEE COMMUNICATIONS [facility] MCHC 33.2 32.0 - 36.0 G/DL 12/01/2017 3:45 PM DIRECTOR EMPLOYEE COMMUNICATIONS [facility] RDW 13.5 11.5 - 14.5 % 12/01/2017 3:45 PM [facility] PLT 226 130 - 400 x10'3/uL 12/01/2017 3:45 PM [facility] MPV 10.2 9.3 - 12.2 FL 12/01/2017 3:45 PM DIRECTOR EMPLOYEE COMMUNICATIONS [facility] NEUTROPHILS % 59.0 43.0 - 65.0 % 12/01/2017 3:45 PM DIRECTOR EMPLOYEE COMMUNICATIONS [facility] LYMPHOCYTES % 29.9 20.0 - 46.0 % 12/01/2017 3:45 PM [facility] MONOCYTES % 7.4 5.0 - 12.0 % 12/01/2017 3:45 PM DIRECTOR EMPLOYEE COMMUNICATIONS [facility] EOSINOPHILS 2.7 1.0 - 3.0 % 12/01/2017 3:45 PM DIRECTOR EMPLOYEE COMMUNICATIONS [facility] BASOPHILS 0.5 0.0 - 1.0 % 12/01/2017 3:45 PM DIRECTOR EMPLOYEE COMMUNICATIONS [facility] IMMATURE GRANS % 0.5 0.0 - 1.0 % 12/01/2017 3:45 PM DIRECTOR EMPLOYEE COMMUNICATIONS [facility] 12/01/2017 2:36 PM DIRECTOR EMPLOYEE COMMUNICATIONS us Asa Mcnamara MD LABORATORY Final Result [facility] [address] [place] [address], [place] [phone] * (ABNORMAL) BASIC METABOLIC PANEL (12/01/2017 2:36 PM DIRECTOR EMPLOYEE COMMUNICATIONS) GLUCOSE 153(H) 70 - 99 MG/DL 12/01/2017 3:57 PM [facility] BUN 10 7 - 18 MG/DL 12/01/2017 3:57 PM [facility] CREATININE S/P/B 0.81 0.55 - 1.02 MG/DL 12/01/2017 3:57 PM [facility] SODIUM S/P/B 141 136 - 145 MMOL/L 12/01/2017 3:57 PM [facility] POTASSIUM S/P/B 3.2(L) 3.5 - 5.1 MMOL/L 12/01/2017 3:57 PM DIRECTOR EMPLOYEE COMMUNICATIONS [facility] CHLORIDE S/P/B 106 100 - 108 MMOL/L 12/01/2017 3:57 PM [facility] CO2 26.6 21 - 32 MMOL/L 12/01/2017 3:57 PM DIRECTOR EMPLOYEE COMMUNICATIONS [facility] CALCIUM S/P/B 8.5 8.5 - 10.1 MG/DL 12/01/2017 3:57 PM DIRECTOR EMPLOYEE COMMUNICATIONS [facility] ANION GAP 11.6 8 - 20 MMOL/L 12/01/2017 3:57 PM DIRECTOR EMPLOYEE COMMUNICATIONS [facility] BUN CREATININE RATIO 12.3 6 - 26 12/01/2017 3:57 PM DIRECTOR EMPLOYEE COMMUNICATIONS [facility] EGFR NON-AFR. AMER. >60 >60 ML/MIN/1.7 3 M2 12/01/2017 3:57 PM DIRECTOR EMPLOYEE COMMUNICATIONS [facility] EGFR AFR. AMER. >60 >60 ML/MIN/1.7 3 M2 12/01/2017 3:57 PM [facility] Comment: NOTE: eGFR is not calculated for patients <18 years of age. This is an estimated GFR (CKD EPI) and should not be used for calculating drug doses. 12/01/2017 2:36 PM DIRECTOR EMPLOYEE COMMUNICATIONS Asa Mcnamara MD LABORATORY Final Result [facility] [address] [place] [address], documented in this encounter Visit Diagnoses Diagnosis PVD (peripheral vascular disease) with claudication ([facility])- Primary Peripheral vascular disease, unspecified Essential (primary) hypertension Unspecified essential hypertension Hyperlipidemia, mixed Mixed hyperlipidemia Stenosis of right carotid artery Occlusion and stenosis of carotid artery without mention of cerebral infarction Hypertriglyceridemia Pure hyperglyceridemia documented in this encounter Care Teams Manager Of Distribution Relationship Specialty Start Date End Date Deisi Andrews MD [address] [place] [address] [place] [address] PCP - General FAMILY PRACTICE 06/15/17 10/14/19 Asa Mcnamara MD [address] [address] Stephen Bill Adjuster CARDIOVASCULAR DISEASE 05/15/16 documented as of this encounter
--- OUTSIDE RECORDS SUMMARY | 2024-11-12 04:47 | XMS_ITS | Encounter Summary ---
Author Organization [facility] Address [facility] [facility] [place] [address] [place] [address] Care Team Providers Care Whizzer Name Role Phone Asa Mcnamara MD Unavailable [phone] Heber Huynh MD Primary Care Provider Unavailable Deisi Andrews MD Primary Care Provider [phone] Encounter Details Date Type Department Care Team (Late st Contact Info) Description 04/22/2017 Abstract [employer] [place], [place] [id number] Asa Mcnamara MD [address] [facility]. [facility] [address] [place], [place] [id number] Social History Tobacco Use Types Packs/Day Years Used Date Smoking Tobacco: Every Day Cigarettes Smokeless Tobacco: Never Alcohol Use Standard Drinks/Week Comments No 0 (1 standard drink = 0.6 oz pur e alcohol) Comments Unknown Sex and Gender Information Value Date Recorded Sex Assigned at Female 12/06/2019 3:36 PM UNDERWATER HUNTER TRAPPER Legal Sex Female 5:20 PM CDT Gender Identity Female 12/06/2019 3:36 PM UNDERWATER HUNTER TRAPPER Sexual Orientation Straight 12/06/2019 3: 36 PM UNDERWATER HUNTER TRAPPER Occupation Industry Job Start Date Job End Date Not on file Not on file Not on file Not on file documented as of this encounter Plan of Treatment Not on file documented as of this encounter Procedures Procedure Name Priority Date/Time Associated Diagnosis Comments POCT GLUCOSE - TEMPLE DOCKED DEVICE Routine 04/22/2017 9:51 AM CDT documented in this encounter Results * (ABNORMAL) POCT glucose (04/22/2017 9:51 AM CDT) GLUCOSE POC 180(H) 70 - 99 mg/dL 04/22/2017 9:09 PM CDT [facility] ORDERS INTERFACE 04/22/2017 9:51 AM CDT 04/22/2017 9:09 PM CDT us Generic Conversion Md HUYNH POCT ORDERABLES - DEVIC E Final Result [facility] LAB ORDERS INTERFACE US documented in this encounter Visit Diagnoses Diagnosis Peripheral vascular disease (CMS/HCC) Peripheral vascular disease, unspecified documented in this encounter Care Teams Whizzer Relationship Specialty Start Date End Date Heber Huynh MD PCP - General 03/11/17 06/14/17 Deisi Andrews MD [address] [place] [address] [place] [address] PCP - General FAMILY PRACTICE 06/15/17 10/14/19 Asa Mcnamara MD [facility]. [facility] [address] [place] [address] [place] Director Underwriter Sales CARDIOVASCULAR DISEASE 05/15/16 documented as of this encounter
--- OUTSIDE RECORDS SUMMARY | 2024-11-12 04:47 | XMS_ITS | Encounter Summary ---
Author Organization [facility] Address [address] [facility] [place] [address] [place] [address] Care Team Providers Care Electronics Engineering Technologist Name Role Phone Asa Mcnamara MD Unavailable Heber Adorno MD Primary Care Provider Unavailable Reason for Visit * Reason Onset Date Comments Reschedule 04/28/2017 Encounter Details Date Type Department Care Team (Late st Contact Info) Description 04/28/2017 Telephone [facility] AT [address] [address] Asa Mcnamara MD [address] [address] Reschedule Social History Tobacco Use Types Packs/Day Years Used Date Smoking Tobacco: Every Day Cigarettes Smokeless Tobacco: Never Alcohol Use Standard Drinks/Week Comments No 0 (1 standard drink = 0.6 oz pur e alcohol) Comments Unknown Sex and Gender Information Value Date Recorded Sex Assigned at Female 12/06/2019 3:36 PM RISK CONTROL PRODUCT LIABILITY DIRECTOR Legal Sex Female 5:20 PM CDT Gender Identity Female 12/06/2019 3:36 PM RISK CONTROL PRODUCT LIABILITY DIRECTOR Sexual Orientation Straight 12/06/2019 3: 36 PM RISK CONTROL PRODUCT LIABILITY DIRECTOR Occupation Industry Job Start Date Job End Date Not on file Not on file Not on file Not on file documented as of this encounter Progress Notes * Porsha David - 04/28/2017 11:01 AM CDT Received VM message requesting to reschedule her 04/30/17 appointment. She states she is at [facility], admitted last night for oxygen level of 90. Returned call, patient states she was admitted for observation for low oxygen level. States swelling in her feet are gone. Appointment rescheduled for 05/03 with Neva Nova. Requested BMP results from [facility] be faxed to our office. documented in this encounter Plan of Treatment Not on file documented as of this encounter Visit Diagnoses Not on filedocumented in this encounter Care Teams Electronics Engineering Technologist Relationship Specialty Start Date End Date Heber Adorno MD PCP - General 03/11/17 06/14/17 Asa Mcnamara MD [facility] [address] [place] [address] [place] [employer] Tester CARDIOVASCULAR DISEASE 05/15/16 documented as of this encounter
--- OUTSIDE RECORDS SUMMARY | 2024-11-12 04:47 | XMS_ITS | Encounter Summary ---
Author Organization [facility] Address [facility] [facility]. [place], [place] [address] [place] [address] Care Team Providers Care Maintenance Trainer Name Role Phone Asa Mcnamara MD Unavailable [phone] Deisi Andrews MD Primary Care Provider [phone] Encounter Details Date Type Department Care Team (Latest Contact Info) Description 09/17/2017 Abstract [facility] Medical Group Social History Tobacco Use Types Packs/Day Years Used Date Smoking Tobacco: Every Day Cigarettes Smokeless Tobacco: Never Comments:2 cig a day Alcohol Use Standard Drinks/Week Comments No 0 (1 standard drink = 0.6 oz pur e alcohol) Comments Unknown Sex and Gender Information Value Date Recorded Sex Assigned at Female 12/06/2019 3:36 PM LOGISTICS SERVICE 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 Legal Sex Female 5:20 PM CDT Gender Identity Female 12/06/2019 3:36 PM LOGISTICS SERVICE 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 Sexual Orientation Straight 12/06/2019 3: 36 PM LOGISTICS SERVICE 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 Occupation Industry Job Start Date Job End Date Not on file Not on file Not on file Not on file documented as of this encounter Plan of Treatment Not on file documented as of this encounter Visit Diagnoses Not on filedocumented in this encounter Care Teams Maintenance Trainer Relationship Specialty Start Date End Date Deisi Andrews MD [address] [place], [place] [address] [address] PCP - General FAMILY PRACTICE 06/15/17 10/14/19 Asa Mcnamara MD [facility]. [facility] [address] [place] [address] [place] Controller Mechanic CARDIOVASCULAR DISEASE 05/15/16 documented as of this encounter
--- OUTSIDE RECORDS SUMMARY | 2024-11-12 04:47 | XMS_ITS | Encounter Summary ---
Author Organization [facility] Address [address] [facility]. [place], [place] [address] [place] [address] Care Team Providers Care Manager Consumer Name Role Phone Asa Mcnamara MD Unavailable [phone] Deisi Andrews MD Primary Care Provider [phone] Reason for Referral * Imaging (Routine) - Closed Specialty Diagnoses / Procedures Referred By Contac t Referred To Contact CARDIOLOGY Diagnoses PVD (peripheral vascular disease) with claudication (CMS/HCC) Procedures USV ART REST W KENZIE LOW EXT [facility] KENZIE LTD DILEEP Asa Mcnamara MD [address] [address] Phone: tel: fax: [facility] [place] [place] [address] Phone: tel: Referral ID Status Reason Start Date Expiration Date Visits Re quested Visits Authorized [id number] Closed 07/19/2018 01/16/2019 1 1 * Imaging (Routine) - Closed Specialty Diagnoses / Procedures Referred By Contac t Referred To Contact CARDIOLOGY Diagnoses Symptoms involving cardiovascular system PVD (peripheral vascular disease) with claudication (CMS/HCC) Procedures USV AORTA ILIAC IVC DUPLEX COMP Asa Mcnamara MD [facility]. [place] [address] [place] [address] Phone: tel: fax: [facility] [place] [address] Phone: tel: Referral ID Status Reason Start Date Expiration Date Visits Re quested Visits Authorized [id number] Closed 07/19/2018 01/16/2019 1 1 Reason for Visit * Reason Comments Peripheral Vascular Disease 6mo fu-discu ss duplex scans Encounter Details Date Type Department Care Team (Late st Contact Info) Description 07/19/2018 10:00 AM CDT Office Visit [facility] [place] [facility] [address] [address] [place] [address] Asa Mcnamara MD [address] [facility]. [place] [address] [place] [address] Peripheral Vascular Disease (6mo fu-discuss duplex scans) Social History Tobacco Use Types Packs/Day Years Used Date Smoking Tobacco: Every Day Cigarettes Smokeless Tobacco: Never Comments:1 pk day Alcohol Use Standard Drinks/Week Comments No 0 (1 standard drink = 0.6 oz pur e alcohol) Comments Unknown Sex and Gender Information Value Date Recorded Sex Assigned at Female 12/06/2019 3:36 PM SENIOR TECHNICAL SUPPORT ANALYST Legal Sex Female 5:20 PM CDT Gender Identity Female 12/06/2019 3:36 PM SENIOR TECHNICAL SUPPORT ANALYST Sexual Orientation Straight 12/06/2019 3: 36 PM SENIOR TECHNICAL SUPPORT ANALYST Occupation Industry Job Start Date Job End Date Not on file Not on file Not on file Not on file documented as of this encounter Last Filed Vital Signs Vital Sign Reading Time Taken Comments Blood Pressure 106/80 07/19/2018 11:38 AM CDT re taken by Pulse 88 07/19/2018 10:10 AM CDT Temperature - - Respiratory Rate - - Oxygen Saturation 95% 07/19/2018 10:10 AM CDT Inhaled Oxygen Concentration - - Weight 90.3 kg (199 lb) 07/19/2018 10:10 AM CDT Height 160 cm (5' 3 ) 07/19/2018 10:10 AM CDT Body Mass Index 35.25 07/19/2018 10:10 AM CDT documented in this encounter Patient Instructions * Patient Instructions* Renan Lee - 07/19/2018 10:00 AM CDT Images from the original note were not included. Patient Education Peripheral Artery Disease and Claudication The Basics Written by the doctors and editors at [facility] What is peripheral artery disease???--??Peripheral [...] above the ankle) at rest and right after exercise, and compare them ?Take the blood pressure in other places in your leg (like the thigh) ?Order a blood vessel imaging test such as an ultrasound, which can show pictures of your leg arteries How can I help treat my PAD???--??To help treat your PAD and prevent it from getting worse, you can: ?Stop smoking ?Get your diabetes, high blood pressure, and high cholesterol under control (if you have these conditions) ?Walking - Doctors recommend that most people with PAD walk every day. Ask your doctor or nurse howbest to begin a walking program. What other [...] process is complete. This topic retrieved from [employer] on: Nov 18, 2017. Topic 70995 Version 7.0 Release: 25.6.2-122 - C26.3 ?2018??[employer]. and/or its affiliates.??All rights reserved. figure 1: Peripheral artery disease Graphic 31290 Version 6.0 Consumer Information Use and Disclaimer [...] that is right for you.The use of [employer] content is governed by the [employer] Terms of Use. ??2018 [employer]. All rights reserved. Copyright ?2018??[employer] and/or its affiliates.??All rights reserved. documented in this encounter Progress Notes * Asa Mcnamara MD - 07/19/2018 10:00 AM CDT Chief Complaint: Peripheral Vascular Disease (6mo fu-discuss duplex scans) Recommendations/Plan: ASSESSMENT: 1. Bilateral lower extremity peripheral vascular disease, endovascular intervention of bilateral iliac arteries in 11/2017, stable ?? 2. Carotid artery disease, left carotid endarterectomy in 2014. 3. History of stroke. 4. Hypertension, well controlled. ?? 5. Mixed hyperlipidemia, on statin. ?? 6. Type 2 diabetes mellitus. ?? 7. Likely COPD. ?? 9. Obstructive sleep apnea, not on CPAP. ?? RECOMMENDATIONS/PLAN: Ms. Cruz reports stable claudication symptoms. The ABIs normal bilaterally with triphasic waveforms and no exercise-induced drop. Duplex shows mild increase in velocities in the right common iliac stent, but overall stable compared to last study. Her symptoms are out of proportion to the severity of disease. She reports improvement in her symptoms after the procedure earlier this year, denies worsening symptoms over the last 6 months. I believe it is reasonable to continue with medical management at this time. We will continue with close clinical follow-up and repeat Doppler studies in 6 months. Continue dual antiplatelets. She will also be maintained on cilostazol, which may lower the risk of stent restenosis. She needs aggressive risk factor modification. Blood pressure is well controlled. Lipid panel is significantly abnormal. She currently takes high-dose pravastatin. She was not able to tolerate simvastatin. I will switch her to rosuvastatin. We will start with low dose, if tolerated, we will increase the dose at her next visit. She is on high- dose fenofibrate and fish oils. Despite that, her triglycerides are markedly elevated. Counseled her about compliance with medications. Counseled her about regular exercise and quitting smoking. Ms. Cruz had left carotid endarterectomy in 2014. Follow-up duplex scan shows moderate disease in right ICA. We will continue with close clinical follow-up and repeat duplex study in 12 months. She appears stable from a heart failure standpoint. Her weight has remained stable. She has significant history of smoking and likely COPD. Shortness of breath is also due to underlying lung disease.Continue furosemide at the current dose. Renal function is stable. ?? It has been my pleasure to participate in Ms. Cruz's care. She will return for a follow-up visit in 6 months, earlier if needed. Thank you for the consultation. ?? History of Present Illness: Ms. Cruz is a pleasant 57-year-old female with type 2 diabetes mellitus, hypertension and dyslipidemia and peripheral vascular disease. She she underwent endovascular intervention of bilateral iliacarteries in November 2017. She returns for her scheduled follow-up visit. She reports improvement inher symptoms compared to last visit. However, she continues to report pain in her legs with walking. She is not able to walk half a block, she has to stop because of discomfort in her legs that starts in the thighs and radiates to the legs. She thinks, the right leg is slightly better than the left. She denies any worsening symptoms over the last 6 months. Functional capacity is very limited. Shealso reports dyspnea on exertion. No history of chest pain. Unfortunately she continues to smoke half a pack a day.. ?? DATA REVIEWED: Arterial Doppler done 06/27/2018. KENZIE 1.1 in the right leg with triphasic waveforms and TBI of 0.91.KENZIE 1.1 in the left leg with triphasic waveforms and TBI of 0.79. No significant change in KENZIE withexercise. Patient exercised for less than 2 minutes and reported left thigh and bilateral calf pain. Aortoiliac duplex done 06/27/2018. Patent stent in right common iliac artery with elevated laxity, PSV 235 cm/s. Patent stent in left common iliac artery with normal velocity. No significant disease bilateral external iliac arteries. Compared to previous exam done 12/31/2017, mild disease progressionon the right. Carotid duplex done 06/27/2018. 50-69% stenosis right [...] treated using 7.0 x 20 mm balloon. Carotid Doppler ultrasound done 11/19/2017. 50-79% stenosis right ICA. PSV 179 cm/s, ratio 2.46. No significant disease left ICA. Vertebral artery flow is antegrade bilaterally. No evidence of ulceration. EKG done on 05/17/2017. Sinus rhythm, normal [...] 69%. Lab Results Component Value Date/Time CHOL 221 (H) 06/27/2018 08:03 AM TRI 548 (H) 06/27/2018 08:03 AM HDL 30 (L) 06/27/2018 08:03 AM LDL NOT CALCULATED 06/27/2018 08:03 AM NA 139 12/31/2017 09:23 AM K 4.2 12/31/2017 09:23 AM BUN 13 12/31/2017 09:23 AM CR 0.80 12/31/2017 09:23 AM GLU 129 (H) 12/31/2017 09:23 AM ALT 31 04/27/2017 WBC 8.1 12/07/2017 07:37 AM HGB 12.6 12/07/2017 07:37 AM PLT 158 12/07/2017 07:37 AM TSH 3.99 09/02/2016 08:13 AM ? Medications: Current Outpatient Prescriptions: ??? cromolyn 4 % ophthalmic solution, As directed, Disp: , Rfl: ??? fluoxetine 20 MG capsule, Take 2 capsules (40 mg total) by mouth daily., Disp: , Rfl: ??? montelukast 10 MG tablet, Take 1 tablet (10 mg total) by mouth daily., Disp: , Rfl: ??? rosuvastatin 20 MG tablet, Take 1 tablet (20 mg total) by mouth nightly at bedtime., Disp: 30 tablet, Rfl: 6 ??? AEROSPAN 80 MCG/ACT Aero Soln, Inhale [...] (two) times daily., Disp: , Rfl: ??? clopidogrel 75 MG tablet, Take 1 tablet (75 mg total) by mouth daily., Disp: 30 tablet, Rfl: 2 ??? COMPRESSION STOCKINGS, 15-20 mm Hg compression knee highs 2 pairs, Disp: 2 Container, Rfl: 0 ??? cyclobenzaprine 10 MG tablet, Take 1 tablet (10 mg total) by mouth as needed for Muscle Spasms., Disp: , Rfl: ??? fenofibrate 160 MG tablet, Take 1 tablet (160 mg total) by mouth daily., Disp: 30 tablet, Rfl: 4 ??? fexofenadine (SAMANTHA ALLERGY) 180 MG tablet, Take 1 tablet (180 mg total) by mouth daily., Disp: , Rfl: ??? Fish Oil 1000 MG Cap, Take 2,000 mg by mouth 2 (two) times daily., Disp: , Rfl: ??? furosemide 40 MG tablet, Take 1 tablet (40 mg total) by mouth daily., Disp: 30 tablet, Rfl: 3 ??? hydrocodone-acetaminophen 5-325 MG tablet, Take 1 tablet by mouth 2 (two) times daily., Disp: ,Rfl: ??? ISOSORBIDE MONONITRATE ER 30 MG 24 hr tablet, TAKE ONE TABLET BY MOUTH ONCE DAILY, Disp: 90 tablet, Rfl: 1 ??? losartan 100 MG tablet, Take 1 tablet (100 mg total) by mouth daily., Disp: 30 tablet, Rfl: 3 ??? metFORMIN 500 MG tablet, Take 1 tablet (500 mg total) by mouth 2 (two) times daily. Resume on , 12/09/17, Disp: 60 tablet, Rfl: 3 ??? metoprolol succinate 25 MG 24 hr tablet, Take 1 tablet (25 mg total) by mouth daily., Disp: 90 tablet, Rfl: 1 ??? Multiple Vitamins-Minerals (PRESERVISION AREDS) capsule, Take 1 capsule by mouth 2 (two) times daily., Disp: , Rfl: ??? nitroglycerin 0.4 MG SL tablet, Place 1 tablet (0.4 mg total) under the tongue every 5 (five) minutes as needed for Chest Pain (If no relief after 3rd dose, contact 911.)., Disp: 25 tablet, Rfl: 1 ??? POTASSIUM CHLORIDE CR 20 MEQ tablet, TAKE 1 TABLET BY MOUTH ONCE DAILY, Disp: 90 tablet, Rfl: 0 ??? SYMBICORT 80-4.5 MCG/ACT inhaler, Inhale 2 puffs into the lungs 2 (two) times daily., Disp: , Rfl: ??? trazodone 50 MG tablet, Take 1 tablet by mouth as needed., Disp: , Rfl: Allergies Allergen Reactions ??? Haloperidol Seizure ??? Penicillins Redness ??? Resperal-Dm [[id number] [id number]] Seizure ??? Triazolam Seizure Past Medical History: [...] Cigarettes ??? Smokeless tobacco: Never Used Comment: 1 pk day ??? Alcohol use No ??? Drug use: Yes Special: Marijuana ??? Sexual activity: Not Asked Other Topics Concern ??? Caffeine Concern Yes coffee 4x a day ??? Special Diet No ??? Exercise No Social History Narrative Family History Problem Relation Age of Onset ??? Heart Attack Sister 55 ??? Stent Sister 56 ??? Cancer Sister ??? Thyroid Sister ??? bladder Cancer [OTHER] Sister ??? Dementia Sister ??? Thyroid Sister Family Status Relation Status ??? Mother at age 63 ??? Father at age 56 ??? Sister lung,tongue ??? Brother at age 48 ??? Daughter Alive ??? Son Alive ??? Sister Alive bladder ??? Sister Alive ??? Sister Alive Review of Systems Constitutional: Positive for malaise/fatigue. Negative for chills, fever and weight loss. HENT: Negative for hearing loss. Eyes: Negative for blurred vision and double vision. Respiratory: Positive for cough and shortness of breath. Negative for hemoptysis. Cardiovascular: [...] Psychiatric/Behavioral: Negative for memory loss. Filed Vitals: 07/19/18 1010 07/19/18 1138 BP: 144/90 106/80 Pulse: 88 SpO2: 95% Weight: 90.3 kg (199 lb) Height: 5' 3 (1.6 m) Physical [...] 1. PVD (peripheral vascular disease) with claudication USV AORTA ILIAC IVC DUPLEX COMP USV KENZIE LTD DILEEP CANCELED: USV ART REST W KENZIE LOW EXT 2. Symptoms involving cardiovascular system USV AORTA ILIAC IVC DUPLEX COMP CANCELED: USV ART REST W KENZIE LOW EXT 3. Mixed hyperlipidemia LIPID PANEL 4. Essential hypertension 5. Stenosis of right carotid artery documented in this encounter Plan of Treatment Not on file documented as of this encounter Results * USV ART REST W KENZIE LOW EXT (12/19/2018 9:03 AM SENIOR TECHNICAL SUPPORT ANALYST) Anatomical Region Laterality Modality Extremity Vascular Ultraso und 12/19/2018 8:35 AM SENIOR TECHNICAL SUPPORT ANALYST Narrative 12/19/2018 5:40 PM SENIOR TECHNICAL SUPPORT ANALYST ?ARTERIAL DOPPLER - KENZIE ?BILATERAL LOWER EXTREMITY ? VASCULAR LAB Pat.Name: ??GELSO, ARNOLD ?Pat.ID: ?[id number] ? St.Date: ?? 12/19/2018 ?Exam Time: 8:35:00 AM ? Study Type:SCOTTIE VS Arterial Doppler Legs DILEEP ??Age: ??1960,57Y ? Sex: ? FEMALE ?Sonogrphr: Elida Richardsk, RVT ? Pat. Stat.:Outpatient ? History / [...] A PSV ??41.8 cm/s ? Left Dist BARK SPUDDER ?? Dist BARK SPUDDER PSV ?33.3 cm/s ? Left Dist BHUMI ?? Dist BHUMI PSV ?54.6 cm/s ? Left Prox KALANI ?? Prox KALANI PSV ? 101 cm/s ? Right Dist Pop A ?? Dist Pop A PSV ??60.5 cm/s ? Right Dist BARK SPUDDER ?? Dist BARK SPUDDER PSV ?36.6 cm/s ? Right Dist BHUMI [...] EXTREMITY VASCULAR LAB Pat.Name: ARNOLD CRUZ Pat.ID: [id number] .Date: 12/19/2018 Exam Time: 8:35:00 AM Study [...] Pop A PSV 41.8 cm/s Left Dist BARK SPUDDER Dist BARK SPUDDER PSV 33.3 cm/s Left Dist BHUMI Dist BHUMI PSV 54.6 cm/s Left Prox KALANI Prox KALANI PSV 101 cm/s Right Dist Pop A Dist Pop A PSV 60.5 cm/s Right Dist BARK SPUDDER Dist BARK SPUDDER PSV 36.6 cm/s Right Dist BHUMI Dist [...] ILIAC IVC DUPLEX COMP (12/19/2018 9:03 AM SENIOR TECHNICAL SUPPORT ANALYST) Anatomical Region Laterality Modality NA Vascular Ultraso und 12/19/2018 8:03 AM SENIOR TECHNICAL SUPPORT ANALYST Narrative 12/19/2018 6:24 PM SENIOR TECHNICAL SUPPORT ANALYST ?[id number] DUPLEX IMAGING ? VASCULAR LAB Pat.Name: ??ARNOLD CRUZ ?Pat.ID: ?[id number] ? St.Date: ?? 12/19/2018 ?Refer.MD: ??Darryl, Deisi ? Exam Time: 8:03:00 AM ? Study [...] Procedure Note Asa Mcnamara MD - 12/19/2018 [id number] DUPLEX IMAGING VASCULAR LAB Pat.Name: ARNOLD CRUZ Pat.ID: [id number] .Date: 12/19/2018 Refer.MD: Deisi Andrews Exam Time: [...] PM Asa Mcnamara M.D. Asa Mcnamara MD [facility] Final Result * (ABNORMAL) LIPID PANEL (12/19/2018 7:52 AM [facility]) [facility] Signature CHOLESTEROL 173 <200 MG/DL 12/19/2018 8:[address] [facility] TRIGLYCERIDES 155(H) <150 MG/DL 12/19/2018 8:[address] [facility] HDL 44 >40.0 MG/DL 12/19/2018 8:[address] [facility] LDL (CALCULATED) 98 <100 MG/DL 12/19/2018 8:[address] [facility] NON HDL CHOLESTEROL 129 <130 MG/DL 12/19/2018 8:[address] [facility] CHOL/HDL RATIO 3.9 0.0 - 4.5 12/19/2018 8:[address] [facility] VLDL CALCULATION 31 5 - 55 MG/DL 12/19/2018 8:[address] [facility] LIPID INTERPRETATION 12/19/2018 8:[address] [facility] Comment: [facility] REPORT RECOMMENDATIONS: [...] ?LDL ? >=160 ?>=130 12/19/2018 7:52 AM SENIOR TECHNICAL SUPPORT ANALYST Asa Mcnamara MD LABORATORY Final Result [facility] [address] [place] [address], documented in this encounter Visit Diagnoses Diagnosis PVD (peripheral vascular disease) with claudication (CMS/HCC)- Primary Peripheral vascular disease, unspecified Symptoms involving cardiovascular system Other symptoms involving cardiovascular system Mixed hyperlipidemia Essential hypertension Unspecified essential hypertension Stenosis of right carotid artery Occlusion and stenosis of carotid artery without mention of cerebral infarction Symptoms involving cardiovascular system Other symptoms involving cardiovascular system PVD (peripheral vascular disease) with claudication (CMS/HCC) Peripheral vascular disease, unspecified documented in this encounter Care Teams Manager Consumer Relationship Specialty Start Date End Date Deisi Andrews MD [address] [place] [address] [place] [address] PCP - General FAMILY PRACTICE 06/15/17 10/14/19 Asa Mcnamara MD [facility]. [facility] [address] [place] [address] [place] [employer] Engineer CARDIOVASCULAR DISEASE 05/15/16 documented as of this encounter
--- OUTSIDE RECORDS SUMMARY | 2024-11-12 04:47 | XMS_ITS | Encounter Summary ---
Author Organization [facility] Address [address] [facility] [place] [address] [place] [address] Care Team Providers Care Hydraulic Rockbreaker Operator Name Role Phone Asa Mcnamara MD Unavailable [phone] Deisi Andrews MD Primary Care Provider [phone] Encounter Details Date Type Department Care Team (Late st Contact Info) Description 11/19/2017 Orders Only [facility] [place] [address] Asa Mcnamara MD Three [facility]. [address] [place] [address] Social History Tobacco Use Types Packs/Day Years Used Date Smoking Tobacco: Every Day Cigarettes Smokeless Tobacco: Never Comments:2 cig a day Alcohol Use Standard Drinks/Week Comments No 0 (1 standard drink = 0.6 oz pur e alcohol) Comments Unknown Sex and Gender Information Value Date Recorded Sex Assigned at Female 12/06/2019 3:36 PM ARCHITECTURAL DESIGN LECTURER Legal Sex Female 5:20 PM CDT Gender Identity Female 12/06/2019 3:36 PM ARCHITECTURAL DESIGN LECTURER Sexual Orientation Straight 12/06/2019 3: 36 PM ARCHITECTURAL DESIGN LECTURER Occupation Industry Job Start Date Job End Date Not on file Not on file Not on file Not on file documented as of this encounter Plan of Treatment Not on file documented as of this encounter Results * (ABNORMAL) BASIC METABOLIC PANEL (11/19/2017 9:48 AM [facility]) GLUCOSE 136(H) 70 - 99 MG/DL 11/19/2017 10:44 AM [facility] BUN 10 7 - 18 MG/DL 11/19/2017 10:44 AM [facility] CREATININE S/P/B 0.76 0.55 - 1.02 MG/DL 11/19/2017 10:44 AM [facility] SODIUM S/P/B 137 136 - 145 MMOL/L 11/19/2017 10:44 AM [facility] POTASSIUM S/P/B 3.8 3.5 - 5.1 MMOL/L 11/19/2017 10:44 AM [facility] CHLORIDE S/P/B 103 100 - 108 MMOL/L 11/19/2017 10:44 AM [facility] CO2 26.7 21 - 32 MMOL/L 11/19/2017 10:44 AM [facility] CALCIUM S/P/B 8.9 8.5 - 10.1 MG/DL 11/19/2017 10:44 AM [facility] ANION GAP 11.1 8 - 20 MMOL/L 11/19/2017 10:44 AM [facility] BUN CREATININE RATIO 13.2 6 - 26 11/19/2017 10:44 AM [facility] EGFR NON-AFR. AMER. >60 >60 ML/MIN/1.7 3 M2 11/19/2017 10:44 AM [facility] EGFR AFR. AMER. >60 >60 ML/MIN/1.7 3 M2 11/19/2017 10:44 AM [facility] Comment: NOTE: eGFR is not calculated for patients <18 years of age. This is an estimated GFR (CKD EPI) and should not be used for calculating drug doses. 11/19/2017 9:48 AM ARCHITECTURAL DESIGN LECTURER Asa Mcnamara MD LABORATORY Final Result [facility] [address] [place] [address], * (ABNORMAL) LIPID PANEL (11/19/2017 9:48 AM ARCHITECTURAL DESIGN LECTURER) CHOLESTEROL 186 <200 MG/DL 11/19/2017 10:44 AM [facility] TRIGLYCERIDES 602(H) <150 MG/DL 11/19/2017 10:44 AM [facility] Comment:REFLEXED DIRECT LDL DUE TO TRIG >400. HDL 30(L) >40.0 MG/DL 11/19/2017 10:44 AM [facility] LDL (CALCULATED) NOT CALCULATED <100 MG/L 11/19/2017 10:44 AM [facility] Comment:TRIGLYCERIDE >400 IN VALIDATES FRACTIONATION. NON HDL CHOLESTEROL 156(H) <130 MG/DL 11/19/2017 10:44 AM [facility] CHOL/HDL RATIO 6.2(H) 0.0 - 4.5 11/19/2017 10:44 AM [facility] VLDL CALCULATION NOT CALCULATED 5 - 55 MG/DL 11/19/2017 10:44 AM [facility] Comment:TRIGLYCERIDE >400 IN VALIDATES FRACTIONATION. LIPID INTERPRETATION 11/19/2017 10:44 AM [facility] Comment: NIH CONCENSUS REPORT RECOMMENDATIONS: ?ADULT ?CHILD ??LOW RISK: ?CHOLESTEROL ? <200 ? <170 ?TRIGLYCERIDE ?<150 ?--- ?HDL ? >=60 ?--- ?LDL ? <100 ? <110 ??BORDERLINE: ?CHOLESTEROL ? 200-239 ?? 170-199 ?TRIGLYCERIDE ?150-199 ? --- ?HDL ?40-59 ?--- ?LDL ? 100-159 ?? 110-129 ??HIGH RISK: ?CHOLESTEROL ? >=240 ?>=200 ?TRIGLYCERIDE ?>=200 ? --- ?HDL ?<40 ?--- ?LDL ? >=160 ?>=130 11/19/2017 9:48 AM ARCHITECTURAL DESIGN LECTURER us Asa Mcnamara MD LABORATORY Final Result [facility] [address] [place] [address], [place] [phone] documented in this encounter Visit Diagnoses Diagnosis Essential (primary) hypertension- Primary Unspecified essential hypertension Peripheral vascular disease (CMS/HCC) Peripheral vascular disease, unspecified Mixed hyperlipidemia documented in this encounter Care Teams Hydraulic Rockbreaker Operator Relationship Specialty Start Date End Date Deisi Andrews MD [address] [place] [address] [place] [address] PCP - General FAMILY PRACTICE 06/15/17 10/14/19 Asa Mcnamara MD [facility]. [facility] [address] [place] [address] [place] Superintendent CARDIOVASCULAR DISEASE 05/15/16 documented as of this encounter
--- OUTSIDE RECORDS SUMMARY | 2024-11-12 04:47 | XMS_ITS | Encounter Summary ---
Author Organization [facility] Address [address] [facility] [place] [address] [place] [address] Care Team Providers Care Client Hr Manager Name Role Phone Asa Mcnamara MD Unavailable Deisi Andrews MD Primary Care Provider [phone] Encounter Details Date Type Department Care Team (Late st Contact Info) Description 12/31/2017 9:06 AM PEDIATRIC IMMUNOLOGIST - 12/31/2017 11:59 PM [facility] Hospital Encounter [facility] [address] [place], [place] [id number] Asa Mcnamara MD Three [facility]. [facility] [address] [place], [place] [id number] Discharge Disposition: Home or Self Care (Routine Discharge) Social History Tobacco Use Types Packs/Day Years Used Date Smoking Tobacco: Every Day Cigarettes Smokeless Tobacco: Never Comments:2 cig a day Alcohol Use Standard Drinks/Week Comments No 0 (1 standard drink = 0.6 oz pur e alcohol) Comments Unknown Sex and Gender Information Value Date Recorded Sex Assigned at Female 12/06/2019 3:36 PM PEDIATRIC IMMUNOLOGIST Legal Sex Female 5:20 PM CDT Gender Identity Female 12/06/2019 3:36 PM PEDIATRIC IMMUNOLOGIST Sexual Orientation Straight 12/06/2019 3: 36 PM PEDIATRIC IMMUNOLOGIST Occupation Industry Job Start Date Job End [...] (180 mg total) by mouth daily. 04/22/2017 metFORMIN 500 MG tablet Take 1 tablet [...] mouth 2 (two) times daily. 06/07/2017 8 clopidogrel 75 MG tabletIndications :PVD (peripheral vascular disease) (CMS/[facility]) Take 1 tablet (75 mg total) by mouth daily. 30 tablet 2 12/07/2017 8 fenofibrate 160 MG tablet Take 1 tablet (160 mg total) by mouth daily. 30 tablet 4 11/25/2017 9 Fish Oil 1000 MG Cap Take 2,000 mg by mouth daily. 11/25/2017 8 fluoxetine 40 MG capsule Take 1 capsule (40 mg total) by mouth daily. 08/18/2017 8 furosemide 40 MG tablet Take 1 tablet (40 mg total) by mouth daily. 30 tablet 3 06/07/2017 8 hydrocodone-aceta minophen 5-325 MG tablet Take 1 tablet by mouth 2 (two) times daily. 07/30/2017 9 isosorbide mononitrate ER 30 MG 24 hr tablet Take 1 tablet (30 mg total) by mouth daily. 30 tablet 5 08/18/2017 8 losartan 100 MG tablet Take 1 tablet (100 mg total) by mouth daily. 30 tablet 3 11/25/2017 0 metoprolol succinate 25 MG 24 hr tablet [...] tablet (20 mEq total) by mouth daily. 90 tablet 12/20/2017 8 pravastatin 80 MG tablet Take 1 tablet (80 mg total) by mouth nightly at bedtime. 30 tablet 4 11/25/2017 8 trazodone 50 MG tablet Take 1 tablet by mouth as needed. 08/16/2017 0 documented as of this encounter Plan of Treatment Not on file documented as of this encounter Procedures Procedure Name Priority Date/Time Associated Diagnosis Comments BASIC METABOLIC PANEL Routine 12/31/2017 9:23 AM PEDIATRIC IMMUNOLOGIST Mixed hyperlipidemia LIPID PANEL Routine 12/31/2017 9:23 AM PEDIATRIC IMMUNOLOGIST Mixed hyperlipidemia documented in this encounter Results * (ABNORMAL) LIPID PANEL (12/31/2017 9:23 AM PEDIATRIC IMMUNOLOGIST) [facility] Signature CHOLESTEROL 177 <200 MG/DL 12/31/2017 10:18 AM PEDIATRIC IMMUNOLOGIST [facility] TRIGLYCERIDES 305(H) <150 MG/DL 12/31/2017 10:18 AM [facility] HDL 35(L) >40.0 MG/DL 12/31/2017 10:18 AM [facility] LDL (CALCULATED) 81.0 <100 MG/L 12/31/19 18 10:18 AM [facility] NON HDL CHOLESTEROL 142(H) <130 MG/DL 12/31/2017 10:18 AM [facility] CHOL/HDL RATIO 5.1(H) 0.0 - 4.5 12/31/2017 10:18 AM [facility] VLDL CALCULATION 61(H) 5 - 55 MG/DL 12/31/2017 10:18 AM [facility] LIPID INTERPRETATION 12/31/2017 10:18 AM [facility] Comment: NIH CONCENSUS REPORT RECOMMENDATIONS: ?ADULT ?CHILD ??LOW RISK: ?CHOLESTEROL ? <200 ? <170 ?TRIGLYCERIDE ?<150 ?--- ?HDL ? >=60 ?--- ?LDL ? <100 ? <110 ??BORDERLINE: ?CHOLESTEROL ? 200-239 ?? 170-199 ?TRIGLYCERIDE ?150-199 ? --- ?HDL ?40-59 ?--- ?LDL ? 100-159 ?? 110-129 ??HIGH RISK: ?CHOLESTEROL ? >=240 ?>=200 ?TRIGLYCERIDE ?>=200 ? --- ?HDL ?<40 ?--- ?LDL ? >=160 ?>=130 12/31/2017 9:23 AM PEDIATRIC IMMUNOLOGIST us Asa Mcnamara MD LABORATORY Final Result [facility] [address] [place] [address], * (ABNORMAL) BASIC METABOLIC PANEL (12/31/2017 9:23 AM PEDIATRIC IMMUNOLOGIST) GLUCOSE 129(H) 70 - 99 MG/DL 12/31/2017 10:18 AM [facility] BUN 13 7 - 18 MG/DL 12/31/2017 10:18 AM [facility] CREATININE S/P/B 0.80 0.55 - 1.02 MG/DL 12/31/2017 10:18 AM [facility] SODIUM S/P/B 139 136 - 145 MMOL/L 12/31/2017 10:18 AM [facility] POTASSIUM S/P/B 4.2 3.5 - 5.1 MMOL/L 12/31/2017 10:18 AM [facility] CHLORIDE S/P/B 106 100 - 108 MMOL/L 12/31/2017 10:18 AM [facility] CO2 27.1 21 - 32 MMOL/L 12/31/2017 10:18 AM [facility] CALCIUM S/P/B 8.7 8.5 - 10.1 MG/DL 12/31/2017 10:18 AM [facility] ANION GAP 10.1 8 - 20 MMOL/L 12/31/2017 10:18 AM [facility] BUN CREATININE RATIO 16.2 6 - 26 12/31/2017 10:18 AM [facility] EGFR NON-AFR. AMER. >60 >60 ML/MIN/1.7 3 M2 12/31/2017 10:18 AM [facility] EGFR AFR. AMER. >60 >60 ML/MIN/1.7 3 M2 12/31/2017 10:18 AM [facility] Comment: NOTE: eGFR is not calculated for patients <18 years of age. This is an estimated GFR (CKD EPI) and should not be used for calculating drug doses. 12/31/2017 9:23 AM PEDIATRIC IMMUNOLOGIST Asa Mcnamara MD LABORATORY Final Result [facility] [address] [place] [address], documented in this encounter Visit Diagnoses Diagnosis Mixed hyperlipidemia documented in this encounter Care Teams Client Hr Manager Relationship Specialty Start Date End Date Deisi Andrews MD [address] [place] [address] [place] [address] PCP - General FAMILY PRACTICE 06/15/17 10/14/19 Asa Mcnamara MD Three [facility]. [facility] [address] [place] [address] Stephen Software Developer CARDIOVASCULAR DISEASE 05/15/16 documented as of this encounter
--- OUTSIDE RECORDS SUMMARY | 2024-11-12 04:47 | XMS_ITS | Encounter Summary ---
Author Organization [facility] Address [facility]. [place], [place] [address] [place] [address] Care Team Providers Care Outside Sales Manager Name Role Phone Asa Mcnamara MD Unavailable [phone] Deisi Andrews MD Primary Care Provider [phone] Reason for Visit * Reason Onset Date Comments Refill Request 03/01/2018 metoprolol succi lula Encounter Details Date Type Department Care Team (Late st Contact Info) Description 03/01/2018 Telephone [facility] at [facility], [facility] [address] [place] [address] Asa Mcnamara MD [facility]. [facility] [address] [place] [address] Refill Request (metoprolol succinate) Social History Tobacco Use Types Packs/Day Years Used Date Smoking Tobacco: Every Day Cigarettes Smokeless Tobacco: Never Comments:1 pk day Alcohol Use Standard Drinks/Week Comments No 0 (1 standard drink = 0.6 oz pur e alcohol) Comments Unknown Sex and Gender Information Value Date Recorded Sex Assigned at Female 12/06/2019 3:36 PM IRON MOLDER HELPER Legal Sex Female 5:20 PM CDT Gender Identity Female 12/06/2019 3:36 PM IRON MOLDER HELPER Sexual Orientation Straight 12/06/2019 3: 36 PM IRON MOLDER HELPER Occupation Industry Job Start Date Job End Date Not on file Not on file Not on file Not on file documented as of this encounter Plan of Treatment Not on file documented as of this encounter Visit Diagnoses Not on filedocumented in this encounter Care Teams Outside Sales Manager Relationship Specialty Start Date End Date Deisi Andrews MD [address] [place] [address] [place] [address] PCP - General FAMILY PRACTICE 06/15/17 10/14/19 Asa Mcnamara MD [facility]. [facility] [address] [place] [address] [employer] Wastewater Analyst CARDIOVASCULAR DISEASE 05/15/16 documented as of this encounter
--- OUTSIDE RECORDS SUMMARY | 2024-11-12 04:47 | XMS_ITS | Encounter Summary ---
Author Organization [facility] Address [facility] [place] [address] [place] [address] Care Team Providers Care Principal Military Analyst Name Role Phone Asa Mcnamara MD Unavailable [phone] Deisi Andrews MD Primary Care Provider [phone] Reason for Visit * Reason Onset Date Comments Surgical Clearance 12/09/2018 Encounter Details Date Type Department Care Team (Late st Contact Info) Description 12/09/2018 Telephone [facility] at [facility], [facility] [address] [place] [address] Asa Mcnamara MD [facility]. [facility] [address] [place] [address] Surgical Clearance Social History Tobacco Use Types Packs/Day Years Used Date Smoking Tobacco: Every Day Cigarettes Smokeless Tobacco: Never Comments:1 pk day Alcohol Use Standard Drinks/Week Comments No 0 (1 standard drink = 0.6 oz pur e alcohol) Comments Unknown Sex and Gender Information Value Date Recorded Sex Assigned at Female 12/06/2019 3:36 PM MAP MOUNTER Legal Sex Female 5:20 PM CDT Gender Identity Female 12/06/2019 3:36 PM MAP MOUNTER Sexual Orientation Straight 12/06/2019 3: 36 PM MAP MOUNTER Occupation Industry Job Start Date Job End Date Not on file Not on file Not on file Not on file documented as of this encounter Progress Notes * Nery Cadet - 12/14/2018 10:33 AM CST Clearance faxed to [phone] MOUNTER * Hari Rehman NP - 12/13/2018 3:00 PM CST Discussed with Dr. Mcnamara Ok to hold plavix and cilostazol x 5 days. Would not recommend holding aspirin due to stents in iliac arteries. MOUNTER * Nery Cadet - 12/09/2018 2:[address] Ventura is requesting to hold all blood thinners for five days prior to Colonoscopy MOUNTER documented in this encounter Plan of Treatment Not on file documented as of this encounter Visit Diagnoses Not on filedocumented in this encounter Care Teams Principal Military Analyst Relationship Specialty Start Date End Date Deisi Andrews MD [address] [place] [address] [place] [address] PCP - General FAMILY PRACTICE 06/15/17 10/14/19 Asa Mcnamara MD [facility] [address] [place] [address] [place] [employer] Crop Harvest Contractor CARDIOVASCULAR DISEASE 05/15/16 documented as of this encounter
--- OUTSIDE RECORDS SUMMARY | 2024-11-12 04:47 | XMS_ITS | Encounter Summary ---
Author Organization [facility] Address [facility] [place] [address] [place] [address] Care Team Providers Care Focuser Name Role Phone Asa Mcnamara MD Unavailable [phone] Deisi Andrews MD Primary Care Provider [phone] Encounter Details Date Type Department Care Team (Late st Contact Info) Description 12/02/2017 Orders Only [facility] at [facility], [facility] [address] [place], [place] [id number] Asa Mcnamara MD [facility]. [address] [place], [place] [id number] Social History Tobacco Use Types Packs/Day Years Used Date Smoking Tobacco: Every Day Cigarettes Smokeless Tobacco: Never Comments:2 cig a day Alcohol Use Standard Drinks/Week Comments No 0 (1 standard drink = 0.6 oz pur e alcohol) Comments Unknown Sex and Gender Information Value Date Recorded Sex Assigned at Female 12/06/2019 3:36 PM STATUE CARVER Legal Sex Female 5:20 PM CDT Gender Identity Female 12/06/2019 3:36 PM STATUE CARVER Sexual Orientation Straight 12/06/2019 3: 36 PM STATUE CARVER Occupation Industry Job Start Date Job End Date Not on file Not on file Not on file Not on file documented as of this encounter Plan of Treatment Not on file documented as of this encounter Visit Diagnoses Diagnosis PVD (peripheral vascular disease) (CMS/HCC)- Primary Peripheral vascular disease, unspecified documented in this encounter Care Teams Focuser Relationship Specialty Start Date End Date Deisi Andrews MD [address] [place] [address] [place] [address] PCP - General FAMILY PRACTICE 06/15/17 10/14/[address] [facility] [address] [place] [address] [place] Graphic Artist CARDIOVASCULAR DISEASE 05/15/16 documented as of this encounter
--- OUTSIDE RECORDS SUMMARY | 2024-11-12 04:47 | XMS_ITS | Encounter Summary ---
Author Organization [facility] Address [facility] [place] [address] [place] [address] Care Team Providers Care Wire Winding Machine Operator Name Role Phone Asa Mcnamara MD Unavailable [phone] Deisi Andrews MD Primary Care Provider [phone] Encounter Details Date Type Department Care Team (Late st Contact Info) Description 12/31/2017 Orders Only [facility] [address] Asa Mcnamara MD Three [facility]. [address] [place] [address] Social History Tobacco Use Types Packs/Day Years Used Date Smoking Tobacco: Every Day Cigarettes Smokeless Tobacco: Never Comments:2 cig a day Alcohol Use Standard Drinks/Week Comments No 0 (1 standard drink = 0.6 oz pur e alcohol) Comments Unknown Sex and Gender Information Value Date Recorded Sex Assigned at Female 12/06/2019 3:36 PM MATRIX SUPERVISOR Legal Sex Female 5:20 PM CDT Gender Identity Female 12/06/2019 3:36 PM MATRIX SUPERVISOR Sexual Orientation Straight 12/06/2019 3: 36 PM MATRIX SUPERVISOR Occupation Industry Job Start Date Job End Date Not on file Not on file Not on file Not on file documented as of this encounter Plan of Treatment Not on file documented as of this encounter Results * (ABNORMAL) LIPID PANEL (12/31/2017 9:23 AM [facility]) [facility] Signature CHOLESTEROL 177 <200 MG/DL 12/31/2017 10:18 AM [facility] TRIGLYCERIDES 305(H) <150 MG/DL 12/31/2017 10:18 AM [facility] HDL 35(L) >40.0 MG/DL 12/31/2017 10:18 AM [facility] LDL (CALCULATED) 81.0 <100 MG/L 12/31/19 18 10:18 AM [facility] NON HDL CHOLESTEROL 142(H) <130 MG/DL 12/31/2017 10:18 AM [facility] CHOL/HDL RATIO 5.1(H) 0.0 - 4.5 12/31/2017 10:18 AM [facility] VLDL CALCULATION 61(H) 5 - 55 MG/DL 12/31/2017 10:18 AM [facility] LIPID INTERPRETATION 12/31/2017 10:18 AM [facility] Comment: NIH CONCENSUS REPORT RECOMMENDATIONS: [...] ?LDL ? >=160 ?>=130 12/31/2017 9:23 AM MATRIX SUPERVISOR us Asa Mcnamara MD LABORATORY Final Result [facility] [address] [place] [address], * (ABNORMAL) BASIC METABOLIC PANEL (12/31/2017 9:23 AM MATRIX SUPERVISOR) GLUCOSE 129(H) 70 - 99 MG/DL 12/31/2017 10:18 AM [facility] BUN 13 7 - 18 MG/DL 12/31/2017 10:18 AM [facility] CREATININE S/P/B 0.80 0.55 - 1.02 MG/DL 12/31/2017 10:18 AM [facility] SODIUM S/P/B 139 136 - 145 MMOL/L 12/31/2017 10:18 AM [facility] POTASSIUM S/P/B 4.2 3.5 - 5.1 MMOL/L 12/31/2017 10:18 AM [facility] CHLORIDE S/P/B 106 100 - 108 MMOL/L 12/31/2017 10:18 AM [facility] CO2 27.1 21 - 32 MMOL/L 12/31/2017 10:18 AM [facility] CALCIUM S/P/B 8.7 8.5 - 10.1 MG/DL 12/31/2017 10:18 AM [facility] ANION GAP 10.1 8 - 20 MMOL/L 12/31/2017 10:18 AM [facility] BUN CREATININE RATIO 16.2 6 - 26 12/31/2017 10:18 AM [facility] EGFR NON-AFR. AMER. >60 >60 ML/MIN/1.7 3 M2 12/31/2017 10:18 AM [facility] EGFR AFR. AMER. >60 >60 ML/MIN/1.7 3 M2 12/31/2017 10:18 AM [facility] Comment: NOTE: eGFR is not calculated for patients <18 years of age. This is an estimated GFR (CKD EPI) and should not be used for calculating drug doses. 12/31/2017 9:23 AM MATRIX SUPERVISOR Asa Mcnamara MD LABORATORY Final Result [facility] [address] [place] [address], [place] [phone] documented in this encounter Visit Diagnoses Diagnosis Mixed hyperlipidemia- Primary documented in this encounter Care Teams Wire Winding Machine Operator Relationship Specialty Start Date End Date Deisi Andrews MD [address] [place] [address] [place] [address] PCP - General FAMILY PRACTICE 06/15/17 10/14/19 Asa Mcnamara MD Three [facility]. [facility] [address] [place] [address] [place] Tester Sound CARDIOVASCULAR DISEASE 05/15/16 documented as of this encounter
--- OUTSIDE RECORDS SUMMARY | 2024-11-12 04:47 | XMS_ITS | Encounter Summary ---
Author Organization [facility] Address [facility] [place] [address] [place] [address] Care Team Providers Care Garment Sorter Name Role Phone Asa Mcnamara MD Unavailable [phone] Deisi Andrews MD Primary Care Provider [phone] Encounter Details Date Type Department Care Team (Late st Contact Info) Description 08/18/[address] [facility] [place] [place] [id number] Asa Mcnamara MD Three [facility] [address] [place], [place] [id number] Social History Tobacco Use Types Packs/Day Years Used Date Smoking Tobacco: Every Day Cigarettes Smokeless Tobacco: Never Comments:2 cig a day Alcohol Use Standard Drinks/Week Comments No 0 (1 standard drink = 0.6 oz pur e alcohol) Comments Unknown Sex and Gender Information Value Date Recorded Sex Assigned at Female 12/06/2019 3:36 PM CENTERPUNCHER Legal Sex Female 5:20 PM CDT Gender Identity Female 12/06/2019 3:36 PM CENTERPUNCHER Sexual Orientation Straight 12/06/2019 3: 36 PM CENTERPUNCHER Occupation Industry Job Start Date Job End Date Not on file Not on file Not on file Not on file documented as of this encounter Plan of Treatment Not on file documented as of this encounter Visit Diagnoses Not on filedocumented in this encounter Care Teams Garment Sorter Relationship Specialty Start Date End Date Deisi Andrews MD [address] [place] [address] [place] [address] PCP - General FAMILY PRACTICE 06/15/17 10/14/19 Asa Mcnamara MD [facility] [address] [place] [address] [place] Construction Field Engineer CARDIOVASCULAR DISEASE 05/15/16 documented as of this encounter
--- OUTSIDE RECORDS SUMMARY | 2024-11-12 04:47 | XMS_ITS | Encounter Summary ---
Author Organization [facility] Address [address] [place] [address] [place] [address] Care Team Providers Care Sales Representative Printing Supplies Name Role Phone Asa Mcnamara MD Unavailable [phone] Deisi Andrews MD Primary Care Provider [phone] Reason for Visit * Reason Onset Date Comments Prior Authorization 08/25/2018 [employer] G[facility] for Rosuvastatin has been Denied again. Encounter Details Date Type Department Care Team (Late st Contact Info) Description 08/25/2018 Telephone [facility] at [facility], [facility] [address] [place] [address] Asa Mcnamara MD [facility]. [address] [place], [place] [id number] Prior Authorization ([employer] GARCIA for Rosuvastatin has been Denied again.) Social History Tobacco Use Types Packs/Day Years Used Date Smoking Tobacco: Every Day Cigarettes Smokeless Tobacco: Never Comments:1 pk day Alcohol Use Standard Drinks/Week Comments No 0 (1 standard drink = 0.6 oz pur e alcohol) Comments Unknown Sex and Gender Information Value Date Recorded Sex Assigned at Female 12/06/2019 3:36 PM VOCATIONAL CASE MANAGER Legal Sex Female 5:20 PM CDT Gender Identity Female 12/06/2019 3:36 PM VOCATIONAL CASE MANAGER Sexual Orientation Straight 12/06/2019 3: 36 PM VOCATIONAL CASE MANAGER Occupation Industry Job Start Date Job End Date Not on file Not on file Not on file Not on file documented as of this encounter Progress Notes * JOSE Estrada - 08/30/2018 11:20 AM CDTAddended by: LM VALLES on: 08/30/2018 11:20 AM Modules accepted: Orders * JOSE Estrada - 08/30/2018 11:18 AM CDT Called patient to inform her of the denial, she states she got a call from [employer] that it was approved. I called [employer] and they verified that the reconsideration for the Rosuvastatin 10mg has been APPROVED from 08-24-18 until 11-24-18. Med list updated. They are faxing me the Approval letter. * JOSE Estrada - 08/30/2018 10:56 AM CDTAddended by: LM VALLES on: 08/30/2018 10:56 AM Modules accepted: Orders * JOSE Estrada - 08/30/2018 10:55 AM CDT Called and left message to call me back about chol med. * Hari Rehman NP - 08/30/2018 8:44 AM CDT Continue pravastatin, add Zetia 10 mg daily. Thanks * JOSE Estrada - 08/30/2018 8:28 AM CDT Hari, The appeal I submitted with you letter of medical necessity for the Rosuvastatin has been DENIED. Denial states: Rosuvastatin 10mg is not a covered benefit on the 2018 Medicaid formulary. will review for Ezetimibe 10mg with prior authorization. Please advise, mL * JOSE Estrada - 08/26/2018 9:50 AM CDT Done, Letter of medical necessity faxed to [employer]. * Hari Rehman NP - 08/26/2018 8:15 AM CDT Luisa, will you please create a letter with the following and submit to Lm. Thank you Ms. Zaidi is a 57-year-old female who is followed closely in our office for history of peripheral vascular disease requiring endovascular intervention of bilateral iliac arteries as well as carotid artery disease requiring carotid endarterectomy. She needs aggressive lipid lowering. Total cholesterol was recently 221 despite high-dose pravastatin. She is intolerant to simvastatin. She was most recently started on a atorvastatin in which she is now also intolerant to this medication. It is our recommendation to start her on a higher intensity statin. Please consider rosuvastatin at this time. Kindest regards, From the office of Dr. Asa Mcnamara * JOSE Estrada - 08/25/2018 2:53 PM CDT Hari, Prasanth submitted the Prior Auth again for the Rosuvastatin 10mg and it has been CLOSED. Denial states: We have received your fax submission and a decision has been rendered. This medication has a denial in place on 07-27-2018. The provider may file an appeal on behalf of the member within 60 days of the date of the denial. I am going to need a letter of medical necessity in order to appeal this denial. Lm documented in this encounter Plan of Treatment Not on file documented as of this encounter Visit Diagnoses Not on filedocumented in this encounter Care Teams Sales Representative Printing Supplies Relationship Specialty Start Date End Date Deisi Andrews MD [address] [place] [address] [place] [address] PCP - General FAMILY PRACTICE 06/15/17 10/14/19 Asa Mcnamara MD [facility]. [facility] [address] [place] [address] [place] [employer] CARDIOVASCULAR DISEASE 05/15/16 documented as of this encounter
--- OUTSIDE RECORDS SUMMARY | 2024-11-12 04:47 | XMS_ITS | Encounter Summary ---
Author Organization [facility] Address [facility]ly [facility], [facility] [place] [address] [place] [address] Care Team Providers Care Victorian Literature Professor Name Role Phone Asa Mcnamara MD Unavailable [phone] Deisi Andrews MD Primary Care Provider [phone] Reason for Visit * Reason Onset Date Comments Refill Request 12/20/2017 potassium chlori de Encounter Details Date Type Department Care Team (Late st Contact Info) Description 12/20/2017 Telephone [facility] at [facility], [facility] [address] [place] [address] Asa Mcnamara MD [facility]. [facility] [address] [place] [address] Refill Request (potassium chloride) Social History Tobacco Use Types Packs/Day Years Used Date Smoking Tobacco: Every Day Cigarettes Smokeless Tobacco: Never Comments:2 cig a day Alcohol Use Standard Drinks/Week Comments No 0 (1 standard drink = 0.6 oz pur e alcohol) Comments Unknown Sex and Gender Information Value Date Recorded Sex Assigned at Female 12/06/2019 3:36 PM PROGRAM OFFICER Legal Sex Female 5:20 PM CDT Gender Identity Female 12/06/2019 3:36 PM PROGRAM OFFICER Sexual Orientation Straight 12/06/2019 3: 36 PM PROGRAM OFFICER Occupation Industry Job Start Date Job End Date Not on file Not on file Not on file Not on file documented as of this encounter Plan of Treatment Not on file documented as of this encounter Visit Diagnoses Not on filedocumented in this encounter Care Teams Victorian Literature Professor Relationship Specialty Start Date End Date Deisi Andrews MD [address] [place] [address] [place] [address] PCP - General FAMILY PRACTICE 06/15/17 10/14/19 Asa Mcnamara MD [facility]. [facility] [address] [place] [address] [place] Nurse Anesthetist CARDIOVASCULAR DISEASE 05/15/16 documented as of this encounter
--- OUTSIDE RECORDS SUMMARY | 2024-11-12 04:47 | XMS_ITS | Encounter Summary ---
Author Organization [facility] Address [address] [place] [place] [address] [place] [address] Care Team Providers Care Bell Tier Name Role Phone Asa Mcnamara MD Unavailable [phone] Deisi Andrews MD Primary Care Provider [phone] Reason for Visit * Auth/Cert Specialty Diagnoses / Procedures Referred By Contac t Referred To Contact Diagnoses PVD (peripheral vascular disease) with claudication (CMS/HCC) PVD (peripheral vascular disease) with claudication Procedures XA DILEEP LEG ANGIOGRAM POSS OBSERVTION Referral ID Status Reason Start Date Expiration Date Visits Re quested Visits Authorized [id number] 1 1 Encounter Details Date Type Department Care Team (Late st Contact Info) Description 12/06/2017 8:14 AM AIRLINE FLIGHT ATTENDANT - 12/07/2017 11:27 AM [facility] [address] [place] [address] Asa Mcnamara MD [facility]. [facility] [address] [place] [address] Discharge Disposition: Home or Self Care (Routine Discharge) Social History Tobacco Use Types Packs/Day Years Used Date Smoking Tobacco: Every Day Cigarettes Smokeless Tobacco: Never Comments:2 cig a day Alcohol Use Standard Drinks/Week Comments No 0 (1 standard drink = 0.6 oz pur e alcohol) Comments Unknown Sex and Gender Information Value Date Recorded Sex Assigned at Female 12/06/2019 3:36 PM AIRLINE FLIGHT ATTENDANT Legal Sex Female 5:20 PM CDT Gender Identity Female 12/06/2019 3:36 PM AIRLINE FLIGHT ATTENDANT Sexual Orientation Straight 12/06/2019 3: 36 PM AIRLINE FLIGHT ATTENDANT Occupation Industry Job Start Date Job End Date Not on file Not on file Not on file Not on file documented as of this encounter Last Filed Vital Signs Vital Sign Reading Time Taken Comments Blood Pressure 117/70 12/07/2017 8:32 AM AIRLINE FLIGHT ATTENDANT Pulse 84 12/07/2017 8:32 AM AIRLINE FLIGHT ATTENDANT Temperature 36.9 ??C (98.4 ??F) 12/07/2017 8:32 AM CS T Respiratory Rate 18 12/07/2017 8:32 AM AIRLINE FLIGHT ATTENDANT Oxygen Saturation 93% 12/07/2017 8:32 AM AIRLINE FLIGHT ATTENDANT Inhaled Oxygen Concentration - - Weight 92 kg (202 lb 13.2 oz) 12/06/2017 7:00 AM AIRLINE FLIGHT ATTENDANT Height 160 cm (5' 3 ) 12/06/2017 7:00 AM AIRLINE FLIGHT ATTENDANT Body Mass Index 35.93 12/06/2017 7:00 AM AIRLINE FLIGHT ATTENDANT documented in this encounter Discharge Summaries * Asa Mcnamara MD - 12/07/2017 12:00 AM CST DISCHARGE DIAGNOSES: 1. Peripheral vascular disease with claudication. 2. Hypertension. PROCEDURES PERFORMED: 1. Bilateral iliac angioplasty. BRIEF HISTORY: A 56-year-old female with peripheral vascular disease. Had bilateral iliac stents inAugust 2015. Lately she was complaining of worsening claudication symptoms. Duplex ultrasound was suggestive of severe in-stent restenosis. She was scheduled for vascular angiogram. The procedure wasperformed yesterday. She was noted to have mild in-stent restenosis in the right common iliac artery stent and severe in-stent restenosis in the left common iliac artery stent. Endovascular intervention was performed. Balloon angioplasty of the right KALANI stent using a 7.0 x 20 mm balloon. A new 7 x38 mm iCAST covered stent was deployed in the left KALANI, postdilated with an 8.0 x 40 mm balloon. Fin al results were very good with no residual gradient. Patient was admitted to general medical floor for overnight observation. HOSPITAL COURSE: The rest of the hospital course was uncomplicated. The bed rest was completed. On the morning of 12/07/2017, the vitals were stable. The labs were stable. The groin exam was unremarkable. She was considered stable for discharge home. DISCHARGE MEDICATIONS: Clopidogrel 75 mg daily was added. The patient was advised to hold Metforminfor 2 days and was also advised to avoid Ibuprofen. The rest of the home medications were unchanged. DISPOSITION: To home. FOLLOW UP: With Anders in 4-6 weeks. #[id number] /NTS INE FLIGHT ATTENDANT documented in this encounter Medications at Time [...] 75 MG tabletIndications :PVD (peripheral vascular disease) (CMS/HCC) Take 1 tablet (75 mg total) by [...] daily. 30 tablet 3 06/07/2017 8 pravastatin 80 MG tablet Take 1 tablet (80 mg total) by mouth nightly at bedtime. 30 tablet 4 11/25/2017 8 trazodone 50 MG tablet Take 1 tablet by mouth as needed. 08/16/2017 0 documented as of this encounter Progress Notes * Nina Carbajal PharmD - 12/07/2017 11:35 AM CST Pharmacy VTE Note VTE Risk Factors: age, weight, CAD, hx stroke VTE Risk Score: 8 VTE Risk Stratification (low/mod/high): high VTE Pharmacologic Prophylaxis Contraindications: recent surgery VTE Mechanical Prophylaxis Contraindications: severe b/l PVD INE FLIGHT ATTENDANT * Nina Carbajal PharmD - 12/07/2017 10:09 AM CST Opioid IV to PO Conversion Contraindications to IV to PO conversion?: none Original ordered IV/IM opioid: morphine 2 mg q4h PRN moderate pain Oral opioid selected for conversion: hydrocodone/APAP 5/325 mg PO q4h PRN moderate pain INE FLIGHT ATTENDANT * Asa Mcnamara MD - 12/07/2017 7:47 AM CST Rody Zaidi is a 56-year-old female patient. Subjective: No chest pain, no shortness of breath. C/o soreness in bilateral groin ??? amlodipine 5 mg Oral Daily ??? aspirin 81 mg Oral Daily ??? cetirizine 10 mg Oral Daily ??? cilostazol 100 mg Oral BID ??? clopidogrel 75 mg Oral Daily ??? fenofibrate 145 mg Oral Daily ??? Fish Oil 2,000 mg Oral Daily ??? fluoxetine 40 mg Oral Daily ??? fluticasone 1 puff Inhalation BID ??? hydrocodone-acetaminophen 1 tablet Oral BID ??? isosorbide mononitrate ER 30 mg Oral Daily ??? losartan 100 mg Oral Daily ??? metoprolol succinate 25 mg Oral Daily ??? multi vitamin/minerals 1 tablet Oral BID ??? pravastatin 80 mg Oral Nightly at bedtime acetaminophen, albuterol sulfate HFA, ALPRAZolam, atropine, cyclobenzaprine, morphine, morphine, morphine, nitroGLYCERIN, ondansetron, trazodone Allergies Allergen Reactions ??? Haloperidol Seizure ??? Penicillins Redness ??? Resperal-Dm [Lpn-Ll-Ppz-Propyl Rgurhn-Kco-Tveiavqml] Seizure ??? Triazolam Seizure Objective: Blood pressure 117/89, pulse 75, temperature 98.4 ??F (36.9 ??C), temperature source Oral, resp. rate 20, height 5' 3 (1.6 m), weight 92 kg (202 lb 13.2 oz), SpO2 93 %. Physical Exam Constitutional: She appears well-developed. No distress. HENT: Head: Normocephalic. Neck: Neck supple. Cardiovascular: Normal rate and regular rhythm. Pulses: Dorsalis pedis pulses are 2+ on the right side, and 2+ on the left side. Posterior tibial pulses are 2+ on the right side, and 2+ on the left side. L groin bruit. Pulmonary/Chest: Breath sounds normal. No respiratory distress. Musculoskeletal: Normal range of motion. She exhibits no edema. Neurological: She is alert. Skin: Skin is warm and dry. Psychiatric: She has a normal mood and affect. Labs: Recent Labs Lab 12/06/17 2118 NA 136 K 3.7 CL 104 CO2 23.4 BUN 25* CR 0.99 CA 8.2* GLU 122* AGAP 12.3 WBC 8.1 HGB 13.0 PLT 170 Assessment/Plan: SNOMED CT(R) 1. PVD (peripheral vascular disease) PERIPHERAL VASCULAR DISEASE 2. PVD (peripheral vascular disease) with claudication PERIPHERAL ARTERIAL OCCLUSIVE DISEASE 1. PVD. Endovascular intervention of bilateral iliac arteries with very good results. On exam, 2+ pedal pulses. Groin exam unremarkable. Continue dual antiplatelets. 2. Hypertension. Well controlled Okay to DC home. Follow-up in office in 4-6 weeks. ASA MCNAMARA MD INE FLIGHT ATTENDANT documented in this encounter H&P Notes * Asa Mcnamara MD - 12/06/2017 8:34 AM CST HISTORY AND PHYSICAL INTERVAL NOTE: I have reviewed Rody Zaidi History & Physical which was performed within the past 30 days. After examining Rody Zaidi, no change has occurred in the patient's condition since the H&P was completed. Informed Consent Discussion: Risks, benefits, alternatives as well as the consequences of not performing the surgery/procedure were discussed with the patient and/or family/personal apparel trimmings sales representative. Questions were answered and the patient/family/personal apparel trimmings sales representative verbalized understanding and desires to proceed. Previous Adverse Experience with Sedation, Analgesia, or Anesthesia? NO Physical Exam: General: AAOx3, no acute distress Cardiac: Normal S1/S2 Pulmonary: normal breath sounds bilaterally, no wheezing or crackles ASA Classification:3 Mallampati: 3 NPO: past midnight. Planned Sedation/Analgesic Agent(s): Versed Fentanyl Planned Procedure(s): Angiogram/GI PHYSICIAN Signed: Dr. Anders MD INE FLIGHT ATTENDANT Source Note - Asa Mcnamara MD - 11/25/2017 11:30 AM AIRLINE FLIGHT ATTENDANT Chief Complaint: Peripheral Vascular Disease (fu from [...] Haloperidol Seizure ??? Penicillins Redness ??? Resperal-Dm [Rjy-Xh-Gqj-Propyl Sjjbym-Pmk-Dybzozkky] Seizure ??? Triazolam Seizure Past Medical History: [...] Stenosis of right carotid artery 5. Hypertriglyceridemia INE FLIGHT ATTENDANT documented in this encounter OR Notes * Brief Op Note - Asa Mcnamara MD - 12/06/2017 1:17 PM CST Procedure Note ?? Rody Gelso 12/06/2017 ?? Procedure: GI PHYSICIAN of bilateral iliac arteries. ?? Indication: Lifestyle limiting claudication ?? Findings: Mild ISR Right KALANI High grade ISR left KALANI GI PHYSICIAN of bilateral iliac arteries. 7x38 mm iCast stent placed in L KALANI post dilated using 8 x40 mm balloon. GI PHYSICIAN Of R KALANI using 7x20 mm balloon ? Complications: None ?? Estimated Blood Loss: Minimal ?? Summary and Recommendations: Dual antiplatelets x 3 months. RF modification INE FLIGHT ATTENDANT * Op Note - Asa Mcnamara MD - 12/06/2017 12:00 AM CST INDICATION: 1. Lifestyle limiting intermittent claudication. 2. Bilateral lower extremity peripheral vascular disease. PROCEDURES PERFORMED: 1. Bilateral iliac angiogram. 2. Balloon angioplasty of right common iliac artery. 3. Balloon angioplasty followed by stent placement in the left common iliac artery. I explained the procedure, risks, benefits, and complications not limited to , bleeding, infection, limb loss and need for surgery. Patient and family verbalized understanding and agreed to proceed. DESCRIPTION OF PROCEDURE: I supervised moderate sedation throughout the procedure. The bilateral groins were anesthetized using 1% Lidocaine. Using ultrasound guidance, the right common femoral artery was cannulated. A 5-Stateless sheath was placed. An Omniflush catheter was advanced over a J tipped wire and positioned in the abdominal aorta. Iliac angiogram was performed in the AP and also in oblique projections. Angiography revealed mild in-stent restenosis in the right common iliac artery and high-grade restenosis in the left common iliac artery. Using ultrasound guidance, the left common femoral artery was cannulated. A 7-Stateless 30 cm sheath was placed.The distal marker tip was positioned just distal to the stent in the left common iliac artery. Pressures were recorded in the aorta and bilateral common femoral arteries. There was mild gradient on the right side. There was a 25-30 mm gradient between the aorta and the left common femoral artery, suggesting a hemodynamically significant restenotic lesion. Since these were bifurcation stents, we decided to upsize the sheath in the right groin. A 7-Stateless 11 cm sheath was placed in the right common femoral artery. Heparin was used for anticoagulation. A 7.0 x 20 mm balloon was placed in the right common iliac artery, a 7.0 x 40 mmballoon was placed in the left common iliac artery. Both balloons were simultaneously inflated to high pressures. The balloons were deflated and removed. Repeat angiogram showed residual stenosis on the left side. We now used a 7.0 x 38 mm iCAST covered stent, which was placed in the left common iliac artery starting distal to the aortic bifurcation, covering the previous stent and extending a few millimeters distal to it. The same 7.0 x 20 mm balloon was positioned in the right common iliac artery. The stent and balloon were simultaneously inflated at nominal pressures. The balloons were removed. Repeat angiogram showed the distal edge of the stent in the left common iliac artery was not completely flared up. We used an 8.0 x 40 mm balloon and postdilated the stent. The 7.0 x 20 mm balloo n was again inflated in the right common iliac artery. Both balloons were expanded to high pressures. The balloons were deflated and removed. A final angiogram was performed which showed the stent was adequately deployed with no significant waste. There was less than 10% waste in the right common iliac artery stent. Pressures were recorded. At this time, there was no gradient between the aorta and bilateral common femoral arteries. We decided to accept the results. The wires were removed. The sheaths were secured to the skin. The closing ACT was 196 seconds. Patient received 600 mg loading dose of Clopidogrel. CONCLUSIONS: 1. Successful endovascular intervention of in-stent restenosis and bilateral common iliac artery stents. The right KALANI stent was treated using a 7.0 x 20 mm balloon at high pressures. A 7.0 x 38 mm iCAST covered stent was placed in the left common iliac artery, which was post-dilated using 8.0 x 40mm balloon. There was no residual pressure gradient at the end of the procedure. RECOMMENDATIONS: 1. Dual antiplatelet for a minimum of 3 months. 2. Risk factor modification. #[id number] /NTS INE FLIGHT ATTENDANT documented in this encounter Plan of Treatment Pending Results Name Type Priority Associated Diagnoses Date /Time XA DILEEP LEG ANGIOGRAM POSS Cardiac Cath Routine PVD (peripheral vascular disease) with claudication 12/06/2017 3:50 PM AIRLINE FLIGHT ATTENDANT documented as of this encounter Procedures Procedure Name Priority Date/Time Associated Diagnosis Comments BASIC METABOLIC PANEL Routine 12/07/2017 7:37 AM AIRLINE FLIGHT ATTENDANT CBC W/DIFF AUTOMATED Routine 12/07/2017 7:37 AM AIRLINE FLIGHT ATTENDANT POCT ACTIVATED CLOTTING TIME - DOCKED DEVICE TIMED 12/06/2017 9:18 PM AIRLINE FLIGHT ATTENDANT PVD (peripheral vascular disease) BASIC METABOLIC PANEL Routine 12/06/2017 9:18 PM AIRLINE FLIGHT ATTENDANT CBC W/DIFF AUTOMATED Routine 12/06/2017 9:18 PM AIRLINE FLIGHT ATTENDANT POCT ACTIVATED CLOTTING TIME - DOCKED DEVICE Routine 12/06/2017 2:18 PM AIRLINE FLIGHT ATTENDANT POCT ACTIVATED CLOTTING TIME - DOCKED DEVICE Routine 12/06/2017 1:09 PM AIRLINE FLIGHT ATTENDANT documented in this encounter Results * (ABNORMAL) BASIC METABOLIC PANEL (12/07/2017 7:37 AM AIRLINE FLIGHT ATTENDANT) GLUCOSE 137(H) 70 - 99 MG/DL 12/07/2017 8:15 AM AIRLINE FLIGHT ATTENDANT [facility] BUN 19(H) 7 - 18 MG/DL 12/07/2017 8:15 AM AIRLINE FLIGHT ATTENDANT [facility] CREATININE S/P/B 0.85 0.55 - 1.02 MG/DL 12/07/2017 8:15 AM [facility] SODIUM S/P/B 138 136 - 145 MMOL/L 12/07/2017 8:15 AM [facility] POTASSIUM S/P/B 4.4 3.5 - 5.1 MMOL/L 12/07/2017 8:15 AM [facility] CHLORIDE S/P/B 105 100 - 108 MMOL/L 12/07/2017 8:15 AM [facility] CO2 25.1 21 - 32 MMOL/L 12/07/2017 8:15 AM [facility] CALCIUM S/P/B 8.3(L) 8.5 - 10.1 MG/DL 12/07/2017 8:15 AM [facility] ANION GAP 12.3 8 - 20 MMOL/L 12/07/2017 8:15 AM [facility] BUN CREATININE RATIO 22.3 6 - 26 12/07/2017 8:15 AM [facility] EGFR NON-AFR. AMER. >60 >60 ML/MIN/1.7 3 M2 12/07/2017 8:15 AM [facility] EGFR AFR. AMER. >60 >60 ML/MIN/1.7 3 M2 12/07/2017 8:15 AM [facility] Comment: NOTE: eGFR is not calculated for patients <18 years of age. This is an estimated GFR (CKD EPI) and should not be used for calculating drug doses. 12/07/2017 7:37 AM AIRLINE FLIGHT ATTENDANT Asa Mcnamara MD LABORATORY Final Result [facility] [address] [place] [address], [place] [phone] * (ABNORMAL) CBC W/DIFF AUTOMATED (12/07/2017 7:37 AM AIRLINE FLIGHT ATTENDANT) [facility] WBC 8.1 4.8 - 10.8 x10'3/uL 12/07/2017 7:47 AM [facility] RBC 4.62 4.20 - 5.40 x10'6/uL 12/07/2017 7:47 AM [facility] HGB 12.6 12.0 - 16.0 G/DL 12/07/2017 7:47 AM [facility] HCT 39.7 38.0 - 48.0 % 12/07/2017 7:47 AM [facility] MCV 85.9 81.0 - 99.0 FL 12/07/2017 7:47 AM [facility] MCH 27.3 27.0 - 31.0 PG 12/07/2017 7:47 AM [facility] MCHC 31.7(L) 32.0 - 36.0 G/DL 12/07/2017 7:47 AM [facility] RDW 13.7 11.5 - 14.5 % 12/07/2017 7:47 AM [facility] PLT 158 130 - 400 x10'3/uL 12/07/2017 7:47 AM [facility] MPV 9.2(L) 9.3 - 12.2 FL 12/07/2017 7:47 AM [facility] NEUTROPHILS % 70.3(H) 43.0 - 65.0 % 12/07/2017 7:47 AM [facility] LYMPHOCYTES % 18.6(L) 20.0 - 46.0 % 12/07/2017 7:47 AM [facility] MONOCYTES % 8.0 5.0 - 12.0 % 12/07/2017 7:47 AM AIRLINE FLIGHT ATTENDANT [facility] EOSINOPHILS 2.3 1.0 - 3.0 % 12/07/2017 7:47 AM [facility] BASOPHILS 0.4 0.0 - 1.0 % 12/07/2017 7:47 AM [facility] IMMATURE GRANS % 0.4 0.0 - 1.0 % 12/07/2017 7:47 AM [facility] 12/07/2017 7:37 AM AIRLINE FLIGHT ATTENDANT us Asa Mcnamara MD LABORATORY Final Result [facility] [address] [place] [address], [place] [phone] * (ABNORMAL) BASIC METABOLIC PANEL (12/06/2017 9:18 PM AIRLINE FLIGHT ATTENDANT) GLUCOSE 122(H) 70 - 99 MG/DL 12/06/2017 10:46 PM [facility] BUN 25(H) 7 - 18 MG/DL 12/06/2017 10:46 PM [facility] CREATININE S/P/B 0.99 0.55 - 1.02 MG/DL 12/06/2017 10:46 PM [facility] SODIUM S/P/B 136 136 - 145 MMOL/L 12/06/2017 10:46 PM [facility] POTASSIUM S/P/B 3.7 3.5 - 5.1 MMOL/L 12/06/2017 10:46 PM [facility] CHLORIDE S/P/B 104 100 - 108 MMOL/L 12/06/2017 10:46 PM [facility] CO2 23.4 21 - 32 MMOL/L 12/06/2017 10:46 PM [facility] CALCIUM S/P/B 8.2(L) 8.5 - 10.1 MG/DL 12/06/2017 10:46 PM [facility] ANION GAP 12.3 8 - 20 MMOL/L 12/06/2017 10:46 PM [facility] BUN CREATININE RATIO 25.2 6 - 26 12/06/2017 10:46 PM [facility] EGFR NON-AFR. AMER. >60 >60 ML/MIN/1.7 3 M2 12/06/2017 10:46 PM [facility] EGFR AFR. AMER. >60 >60 ML/MIN/1.7 3 M2 12/06/2017 10:46 PM [facility] Comment: NOTE: eGFR is not calculated for patients <18 years of age. This is an estimated GFR (CKD EPI) and should not be used for calculating drug doses. 12/06/2017 9:18 PM AIRLINE FLIGHT ATTENDANT us Asa Mcnamara MD LABORATORY Final Result [facility] [address] [place] [address], * (ABNORMAL) CBC W/DIFF AUTOMATED (12/06/2017 9:18 PM AIRLINE FLIGHT ATTENDANT) WBC 8.1 4.8 - 10.8 x10'3/uL 12/06/2017 10:39 PM [facility] RBC 4.67 4.20 - 5.40 x10'6/uL 12/06/2017 10:39 PM [facility] HGB 13.0 12.0 - 16.0 G/DL 12/06/2017 10:39 PM [facility] HCT 40.0 38.0 - 48.0 % 12/06/2017 10:39 PM [facility] MCV 85.7 81.0 - 99.0 FL 12/06/2017 10:39 PM [facility] MCH 27.8 27.0 - 31.0 PG 12/06/2017 10:39 PM [facility] MCHC 32.5 32.0 - 36.0 G/DL 12/06/2017 10:39 PM [facility] RDW 13.8 11.5 - 14.5 % 12/06/2017 10:39 PM [facility] PLT 170 130 - 400 x10'3/uL 12/06/2017 10:39 PM [facility] MPV 9.7 9.3 - 12.2 FL 12/06/2017 10:39 PM [facility] NEUTROPHILS % 65.3(H) 43.0 - 65.0 % 12/06/2017 10:39 PM [facility] LYMPHOCYTES % 23.6 20.0 - 46.0 % 12/06/2017 10:39 PM [facility] MONOCYTES % 8.4 5.0 - 12.0 % 12/06/2017 10:39 PM [facility] EOSINOPHILS 1.8 1.0 - 3.0 % 12/06/2017 10:39 PM [facility] BASOPHILS 0.4 0.0 - 1.0 % 12/06/2017 10:39 PM [facility] IMMATURE GRANS % 0.5 0.0 - 1.0 % 12/06/2017 10:39 PM [facility] 12/06/2017 9:18 PM AIRLINE FLIGHT ATTENDANT us Asa Mcnamara MD LABORATORY Final Result [facility] [address] [place] [address], [place] [phone] * (ABNORMAL) POCT activated clotting time (12/06/2017 9:18 PM AIRLINE FLIGHT ATTENDANT) ACTIVATED CLOTTING TIME (ACT) 100(L) 113 - 149 SEC 12/06/2017 10:27 PM AIRLINE FLIGHT ATTENDANT [facility] Blood specimen (specimen) 12/06/2017 9:18 PM AIRLINE FLIGHT ATTENDANT Asa Mcnamara MD POCT ORDERABLES - DEVICE Fin al Result Performing Organization Address [facility] Co de Phone Number [facility] [address] [place] [address], [place] [phone] * (ABNORMAL) POCT activated clotting time (12/06/2017 2:18 PM AIRLINE FLIGHT ATTENDANT) ACTIVATED CLOTTING TIME (ACT) 152(H) 113 - 149 SEC 12/06/2017 2:26 PM AIRLINE FLIGHT ATTENDANT [facility] ORDERS INTERFACE 12/06/2017 2:18 PM AIRLINE FLIGHT ATTENDANT Asa Mcnamara MD POCT ORDERABLES - DEVICE Fin al Result Performing Organization Address [facility] Co de Phone Number [facility] ORDERS INTERFACE US * (ABNORMAL) POCT activated clotting time (12/06/2017 1:09 PM AIRLINE FLIGHT ATTENDANT) ACTIVATED CLOTTING TIME (ACT) 184(H) 113 - 149 SEC 12/06/2017 1:17 PM AIRLINE FLIGHT ATTENDANT [facility] ORDERS INTERFACE 12/06/2017 1:09 PM AIRLINE FLIGHT ATTENDANT Asa Mcnamara MD POCT ORDERABLES - DEVICE Fin al Result [facility] ORDERS INTERFACE US documented in this encounter Visit Diagnoses Diagnosis PVD (peripheral vascular disease) (CMS/HCC)- Primary Peripheral vascular disease, unspecified PVD (peripheral vascular disease) with claudication (CMS/HCC) Peripheral vascular disease, unspecified PVD (peripheral vascular disease) with claudication (CMS/HCC) Peripheral vascular disease, unspecified documented in this encounter Admitting Diagnoses Diagnosis PVD (peripheral vascular disease) with claudication (CMS/HCC) Peripheral vascular disease, unspecified documented in this encounter Administered Medications Inactive Administered Medications - up to 3 most recent administrations Medication Order MAR Action Action Date Dose Rate Site amlodipine (NORVASC) tablet 5 mg 5 mg, Oral, Daily, First dose on Wed12/07/17 at 0900, Until DiscontinuedIndications:PVD (peripheral vascular disease) (CMS/HCC) Given 12/07/2017 9:18 AM AIRLINE FLIGHT ATTENDANT 5 mg aspirin chewable tablet 81 mg 81 mg, Oral, Daily, First dose on Wed12/07/17 at 0900, Until DiscontinuedIndications:PVD (peripheral vascular disease) (CMS/HCC) Given 12/07/2017 9:17 AM AIRLINE FLIGHT ATTENDANT 81 mg cetirizine (ZYRTEC) tablet 10 mg 10 mg, Oral, Daily, First dose on Wed12/06/17 at 1645, Until Discontinued, THERAPEUTIC INTERCHANGE FOR FEXOFENADINE PER P&T PROTOCOLIndications:PVD (peripheral vascular disease) (CMS/HCC) Given 12/07/2017 9:18 AM AIRLINE FLIGHT ATTENDANT 10 mg Given 12/06/2017 5:47 PM AIRLINE FLIGHT ATTENDANT 10 mg cilostazol (PLETAL) tablet 100 mg 100 mg, Oral, 2 times daily, First dose on Wed12/06/17 at 2100, Until DiscontinuedIndications:PVD (peripheral vascular disease) (CMS/HCC) Given 12/07/2017 9:18 AM AIRLINE FLIGHT ATTENDANT 100 mg Given 12/06/2017 9:01 PM AIRLINE FLIGHT ATTENDANT 100 mg clopidogrel (PLAVIX) tablet 75 mg 75 mg, Oral, Daily, First dose on Wed12/07/17 at 0900, Until Discontinued, Post-OpIndications:PVD (peripheral vascular disease) (CMS/HCC) Given 12/07/2017 9:17 AM AIRLINE FLIGHT ATTENDANT 75 mg cyclobenzaprine (FLEXERIL) tablet 10 mg 10 mg, Oral, As needed, Muscle Spasms, Starting on Wed12/06/17 at 1628, Until Wed12/07/17 at 1340Indications:PVD (peripheral vascular disease) (CMS/HCC) Given 12/06/2017 5:46 PM AIRLINE FLIGHT ATTENDANT 10 mg fenofibrate (TRICOR) tablet 145 mg 145 mg (rounded from 160 mg), Oral, Daily, First dose on Wed12/06/17 at 1645, Until DiscontinuedIndications:PVD (peripheral vascular disease) ([place] [facility] Given 12/07/2017 9:18 AM AIRLINE FLIGHT ATTENDANT 145 mg Given 12/06/2017 5:46 PM AIRLINE FLIGHT ATTENDANT 145 mg Fish Oil CAPS 2,000 mg 2,000 mg, Oral, Daily, First dose on Wed12/06/17 at 1645, Until DiscontinuedIndications:PVD (peripheral vascular disease) ([facility]/HCC) Given 12/07/2017 9:16 AM AIRLINE FLIGHT ATTENDANT 2,000 mg Given 12/06/2017 5:46 PM AIRLINE FLIGHT ATTENDANT 2,000 mg fluoxetine (PROZAC) capsule 40 mg 40 mg, Oral, Daily, First dose on Wed12/07/17 at 0900, Until DiscontinuedIndications:PVD (peripheral vascular disease) ([facility]) Given 12/07/2017 9:16 AM AIRLINE FLIGHT ATTENDANT 40 m g fluticasone (FLOVENT HFA) 110 MCG/ACT inhaler 1 puff 1 puff, Inhalation, 2 times daily, First dose on Wed12/06/17 at 2100, Until Discontinued, Therapeutic interchange for flunisolide inhaler (Aerospan)Indications:PVD (peripheral vascular disease) ([facility]) Given 12/07/2017 7:06 AM AIRLINE FLIGHT ATTENDANT 1 puff Given 12/06/2017 8:50 PM AIRLINE FLIGHT ATTENDANT 1 puff hydrocodone-acetaminophen (NORCO) 5-325 MG tablet 1 tablet 1 tablet, Oral, 2 times daily, First dose on Wed12/06/17 at 2100, Until Discontinued, Maximum dose of acetaminophen is 4000 mg from all sources in 24 hours.Indications:PVD (peripheral vascular disease) ([facility]/HCC) Given 12/07/2017 9:17 AM AIRLINE FLIGHT ATTENDANT 1 tablet Given 12/06/2017 9:01 PM AIRLINE FLIGHT ATTENDANT 1 tablet hydrocodone-acetaminophen (NORCO) 5-325 MG tablet 1 tablet 1 tablet, Oral, Every 4 hours PRN, Moderate pain (Scale 4 - 7), Starting on Wed12/07/17 at 1009, Until Wed12/07/17 at 1340, Maximum dose of acetaminophen is 4000 mg from all sources in 24 hours. isosorbide mononitrate ER (IMDUR) 24 hr tablet 30 mg 30 mg, Oral, Daily, First dose on Wed12/07/17 at 0900, Until DiscontinuedIndications:PVD (peripheral vascular disease) (CMS/HCC) Given 12/07/2017 9:16 AM AIRLINE FLIGHT ATTENDANT 30 m g losartan (COZAAR) tablet 100 mg 100 mg, Oral, Daily, First dose on Wed12/07/17 at 0900, Until DiscontinuedIndications:PVD (peripheral vascular disease) (CMS/HCC) Given 12/07/2017 9:17 AM AIRLINE FLIGHT ATTENDANT 100 mg metoprolol succinate (TOPROL-XL) tablet 25 mg 25 mg, Oral, Daily, First dose on Wed12/06/17 at 1645, Until DiscontinuedIndications:PVD (peripheral vascular disease) (CMS/HCC) Given 12/07/2017 9:16 AM AIRLINE FLIGHT ATTENDANT 25 m g Given 12/06/2017 5:47 PM AIRLINE FLIGHT ATTENDANT 25 mg morphine injection 1 mg 1 mg, Intravenous, Every 4 hours PRN, Moderate pain (Scale 4 - 7), Starting on Wed12/06/17 at 2257, Until Wed12/07/17 at 1011 Given 12/07/2017 5:25 AM AIRLINE FLIGHT ATTENDANT 1 mg morphine injection 2 mg 2 mg, Intravenous, Every 4 hours PRN, Severe pain (Scale 8 - 10), Starting on Wed12/06/17 at 2257, Until Wed12/07/17 at 1340 Given 12/06/2017 11:46 PM AIRLINE FLIGHT ATTENDANT 2 mg multi vitamin/minerals (I-ELIAZAR) I-ELIAZAR tablet 1 tablet 1 tablet, Oral, 2 times daily, First dose on Wed12/06/17 at 2100, Until DiscontinuedIndications:PVD (peripheral vascular disease) (CMS/HCC) Given 12/06/2017 11:45 PM AIRLINE FLIGHT ATTENDANT 1 tablet ondansetron (ZOFRAN) injection 4 mg 4 mg, Intravenous, Every 4 hours PRN, Nausea, Vomiting, Starting on Wed12/06/17 at 0834, Until Wed12/06/17 at 1545, Pre-Op Given 12/06/2017 10:18 AM AIRLINE FLIGHT ATTENDANT 4 mg Right Arm pravastatin (PRAVACHOL) tablet 80 mg 80 mg, Oral, Nightly at bedtime, First dose on Wed12/06/17 at 2100, Until DiscontinuedIndications:PVD (peripheral vascular disease) (CMS/HCC) Given 12/06/2017 9:01 PM AIRLINE FLIGHT ATTENDANT 80 mg sodium chloride 0.9% infusion at 125 mL/hr, Intravenous, Continuous, Starting on Wed12/06/17 at 1645, Until Wed12/06/17 at 2244, Post-OpIndications:PVD (peripheral vascular disease) (CMS/HCC) New Bag 12/06/2017 10:20 PM AIRLINE FLIGHT ATTENDANT 125 mL/hr documented in this encounter Active and Recently Administered Medications Times are shown in AIRLINE FLIGHT ATTENDANT. Scheduled Medication Order 12/05/2017 12/06/2017 12/07/2017 amlodipine (NORVASC) tablet 5 mg 5 mg, Oral, Daily, First dose on Wed12/07/17 at 0900, Until Discontinued 917 (Given - Provid er: Francesca Avalos RN) aspirin chewable tablet 81 mg 81 mg, Oral, Daily, First dose on Wed12/07/17 at 0900, Until Discontinued 916 (Given - Provid er: Francesca Avalos RN) cetirizine (ZYRTEC) tablet 10 mg 10 mg, Oral, Daily, First dose on Wed12/06/17 at 1645, Until Discontinued, THERAPEUTIC INTERCHANGE FOR FEXOFENADINE PER P&T PROTOCOL 174 (Given - Provider: Neva Luis RN) 917 (Given - Provider: Francesca Avalos, ADONAY) cilostazol (PLETAL) tablet 100 mg 100 mg, Oral, 2 times daily, First dose on Wed12/06/17 at 2100, Until Discontinued 2100 (Given - Provider: Taurus Interiano RN) 917 (Given - Provider: Francesca Avalos, ADONAY) clopidogrel (PLAVIX) tablet 75 mg 75 mg, Oral, Daily, First dose on Wed12/07/17 at 0900, Until Discontinued, Post-Op 916 (Given - Provid er: Francesca Avalos RN) fenofibrate (TRICOR) tablet 145 mg 145 mg (rounded from 160 mg), Oral, Daily, First dose on Wed12/06/17 at 1645, Until Discontinued 174 (Given - Provider: Neva Luis RN) 09 (Given - Provider: Francesca Avalos, ADONAY) Fish Oil CAPS 2,000 mg 2,000 mg, Oral, Daily, First dose on Wed12/06/17 at 1645, Until Discontinued 1745 (Given - Provider: Neva Luis, RN) 09 (Given - Provider: Francesca Avalos RN) fluoxetine (PROZAC) capsule 40 mg 40 mg, Oral, Daily, First dose on Wed12/07/17 at 0900, Until Discontinued 915 (Given - Provid er: Francesca Avalos RN) fluticasone (FLOVENT HFA) 110 MCG/ACT inhaler 1 puff 1 puff, Inhalation, 2 times daily, First dose on Wed12/06/17 at 2100, Until Discontinued, Therapeutic interchange for flunisolide inhaler (Aerospan) 2049 (Given - Provider: Rama Vasques, RESPIRATORY COORDINATOR) 705 (Given - Provider: Marifer Negron, ALARM ADJUSTER) hydrocodone-acetaminophen (NORCO) 5-325 MG tablet 1 tablet 1 tablet, Oral, 2 times daily, First dose on Wed12/06/17 at 2100, Until Discontinued, Maximum dose of acetaminophen is 4000 mg from all sources in 24 hours. 2100 (Given - Provider: Taurus Interiano RN) 916 (Given - Provider: Francesca Avalos RN) isosorbide mononitrate ER (IMDUR) 24 hr tablet 30 mg 30 mg, Oral, Daily, First dose on Wed12/07/17 at 0900, Until Discontinued 915 (Given - Provid er: Francesca Avalos RN) losartan (COZAAR) tablet 100 mg 100 mg, Oral, Daily, First dose on Wed12/07/17 at 0900, Until Discontinued 916 (Given - Provid er: Francecsa Avalos RN) metoprolol succinate (TOPROL-XL) tablet 25 mg 25 mg, Oral, Daily, First dose on Wed12/06/17 at 1645, Until Discontinued 1746 (Given - Provider: Neva Luis, ADONAY) 0916 (Given - Provider: Francesca Avalos RN) multi vitamin/minerals (I-ELIAZAR) I-ELIAZAR tablet 1 tablet 1 tablet, Oral, 2 times daily, First dose on Wed12/06/17 at 2100, Until Discontinued 2344 (Given - Provider: Taurus Interiano RN) 0900 (Canceled Entry - Provider: Automatic Discharge Provider - Comment: Automatically canceled at discontinue of medication order) pravastatin (PRAVACHOL) tablet 80 mg 80 mg, Oral, Nightly at bedtime, First dose on Wed12/06/17 at 2100, Until Discontinued 210 (Given - Provider: Taurus Interiano RN) Continuous Medication Order 12/05/2017 12/06/2017 12/07/2017 sodium chloride 0.9% infusion at 125 mL/hr, Intravenous, Continuous, Starting on Wed12/06/17 at 1645, Until Wed12/06/17 at 2244, Post-Op 2220 (New Bag - Provider: Bairon Interiano RN) PRN Medication Order 12/05/2017 12/06/2017 12/07/2017 acetaminophen (TYLENOL) tablet 325 mg 325 mg, Oral, Every 4 hours PRN, Mild pain (Scale 1 - 3), Starting on Wed12/06/17 at 1628, Until Wed12/07/17 at 1340, Maximum dose of acetaminophen is 4000 mg from all sources in 24 hours., Post-Op albuterol sulfate HFA 108 (90 BASE) MCG/ACT inhaler 2 puff 2 puff, Inhalation, Every 4 hours PRN, Wheezing, Starting on Wed12/06/17 at 1628, Until Wed12/07/17 at 1340 ALPRAZolam (XANAX) tablet 1 mg 1 mg, Oral, 3 times daily PRN, Anxiety, Starting on Wed12/06/17 at 1628, Until Wed12/07/17 at 1340 atropine injection 0.5 mg 0.5 mg, Intravenous, PRN, Other, symptomatic bradycardia, Starting on Wed12/06/17 at 1628, Until Wed12/07/17 at 1340, Post-Op cyclobenzaprine (FLEXERIL) tablet 10 mg 10 mg, Oral, As needed, Muscle Spasms, Starting on Wed12/06/17 at 1628, Until Wed12/07/17 at 1340 1746 (Given - Provider: Neva Luis RN) hydrocodone-acetaminophen (NORCO) 5-325 MG tablet 1 tablet 1 tablet, Oral, Every 4 hours PRN, Moderate pain (Scale 4 - 7), Starting on Wed12/07/17 at 1009, Until Wed12/07/17 at 1340, Maximum dose of acetaminophen is 4000 mg from all sources in 24 hours. morphine injection 1 mg (CANCELED) 1 mg, Intravenous, Every 4 hours PRN, Moderate pain (Scale 4 - 7), Starting on Wed12/06/17 at 2257, Until Wed12/07/17 at 1011 0525 (Given - Provid er: Taurus Interiano RN) morphine injection 2 mg 2 mg, Intravenous, Once as needed, Severe pain (Scale 8 - 10), DURING SHEATH REMOVAL, 2 doses, Starting on Wed12/06/17 at 1458, Until Wed12/07/17 at 1340, May repeat one time in 30 minutes., Post-Op morphine injection 2 mg 2 mg, Intravenous, Every 4 hours PRN, Severe pain (Scale 8 - 10), Starting on Wed12/06/17 at 2257, Until Wed12/07/17 at 1340 2346 (Given - Provider: Taurus Interiano RN) nitroGLYCERIN (NITROSTAT) SL tablet 0.4 mg 0.4 mg, Sublingual, Every 5 min PRN, Chest Pain, If no relief after 3rd dose, contact 911., Starting on Wed12/06/17 at 1628, Until Wed12/07/17 at 1340 ondansetron (ZOFRAN) injection 4 mg (CANCELED) 4 mg, Intravenous, Every 4 hours PRN, Nausea, Vomiting, Starting on Wed12/06/17 at 0834, Until Wed12/06/17 at 1545, Pre-Op 1018 (Given - Provider: Jeaneth Hernandez RN) ondansetron (ZOFRAN) injection 4 mg 4 mg, Intravenous, Every 4 hours PRN, Nausea, Vomiting, Starting on Wed12/06/17 at 1628, Until Wed12/07/17 at 1340, Post-Op trazodone (DESYREL) tablet 50 mg 50 mg, Oral, Nightly PRN, insomnia, Starting on Wed12/06/17 at 2100, Until Wed12/07/17 at 1340 documented in this encounter Care Teams Bell Tier Relationship Specialty Start Date End Date Deisi Andrews MD [address] [place] [address] [place] [address] PCP - General FAMILY PRACTICE 06/15/17 10/14/19 Asa Mcnamara MD [facility]. [address] [place] [address] [place] Admitting Coordinator CARDIOVASCULAR DISEASE 05/15/16 documented as of this encounter
--- OUTSIDE RECORDS SUMMARY | 2024-11-12 04:47 | XMS_ITS | Encounter Summary ---
Author Organization [facility] Address [facility] [facility] [place] [address] [place] [address] Care Team Providers Care Oil Well Fishing Tool Operator Name Role Phone Asa Mcnamara MD Unavailable [phone] Deisi Andrews MD Primary Care Provider [phone] Encounter Details Date Type Department Care Team (Late st Contact Info) Description 06/23/2017 Orders Only [facility] AT [address] [address] Asa Mcnamara MD [address] [address] Social History Tobacco Use Types Packs/Day Years Used Date Smoking Tobacco: Every Day Cigarettes Smokeless Tobacco: Never Comments:2 cig a day Alcohol Use Standard Drinks/Week Comments No 0 (1 standard drink = 0.6 oz pur e alcohol) Comments Unknown Sex and Gender Information Value Date Recorded Sex Assigned at Female 12/06/2019 3:36 PM ELECTRICAL HARDWARE ENGINEER Legal Sex Female 5:20 PM CDT Gender Identity Female 12/06/2019 3:36 PM ELECTRICAL HARDWARE ENGINEER Sexual Orientation Straight 12/06/2019 3: 36 PM ELECTRICAL HARDWARE ENGINEER Occupation Industry Job Start Date Job End Date Not on file Not on file Not on file Not on file documented as of this encounter Plan of Treatment Not on file documented as of this encounter Procedures Procedure Name Priority Date/Time Associated Diagnosis Comments BASIC METABOLIC PANEL Routine 06/23/2017 1:55 PM CDT documented in this encounter Results * (ABNORMAL) BASIC METABOLIC PANEL (06/23/2017 1:55 PM CDT) GLUCOSE 166(H) 70 - 99 mg/dL [facility] BUN 12 8 - 23 mg/dL [facility] CREATININE S/P/B 0.68 0.60 - 1.10 mg/dL [facility] SODIUM S/P/B 143 136 - 145 mmol/L [facility] POTASSIUM S/P/B 3.4(L) 3.5 - 5.1 mmol/L [facility] CHLORIDE S/P/B 100 98 - 107 mmol/L [facility] CO2 28 22 - 29 mmol/L [facility] CALCIUM S/P/B 9.2 8.6 - 10.2 mg/dL [facility] ANION GAP 18 8 - 20 [facility] EGFR NON-AFR. AMER. >60 >60 mL/min/1. 73m'2 [facility] EGFR AFR. AMER. >60 NOTE: eGFR is not calculated for patients <18 years of age. This is an estimated GFR (CKD EPI) and should not be used for calculating drug doses. >60 mL/min/1. 73m'2 [facility] 06/23/2017 1:55 PM CDT 06/23/2017 2:04 PM CDT us Asa Mcnamara MD LABORATORY Final Result [facility] [address] [place] [address], [place] [phone] documented in this encounter Visit Diagnoses Not on filedocumented in this encounter Care Teams Oil Well Fishing Tool Operator Relationship Specialty Start Date End Date Deisi Andrews MD [address] [place] [address] [place] [address] PCP - General FAMILY PRACTICE 06/15/17 10/14/19 Aas Mcnamara MD [facility] [address] [place] [address] [place] Stave Mill Hand CARDIOVASCULAR DISEASE 05/15/16 documented as of this encounter
--- OUTSIDE RECORDS SUMMARY | 2024-11-12 04:47 | XMS_ITS | Encounter Summary ---
Author Organization [facility] Address [address] [facility]. [place], [place] [address] [place] [address] Care Team Providers Care Pattern Illustrator Name Role Phone Asa Mcnamara MD Unavailable [phone] Heber Adorno MD Primary Care Provider Unavailable Deisi Andrews MD Primary Care Provider [phone] Neva Holden MD Primary Care Provider [phone] Deisi Andrews MD Primary Care Provider [phone] Neva Holden MD Primary Care Provider [phone] Encounter Details Date Type Department Care Team (Late st Contact Info) Description 04/30/2017 Abstract [facility] AT [address] [address] Rafael Thakur MA Social History Tobacco Use Types Packs/Day Years Used Date Smoking Tobacco: Every Day Cigarettes Smokeless Tobacco: Never Alcohol Use Standard Drinks/Week Comments No 0 (1 standard drink = 0.6 oz pur e alcohol) Comments Unknown Sex and Gender Information Value Date Recorded Sex Assigned at Female 12/06/2019 3:36 PM CORPORATION PILOT Legal Sex Female 5:20 PM CDT Gender Identity Female 12/06/2019 3:36 PM CORPORATION PILOT Sexual Orientation Straight 12/06/2019 3: 36 PM CORPORATION PILOT Occupation Industry Job Start Date Job End Date Not on file Not on file Not on file Not on file documented as of this encounter Plan of Treatment Not on file documented as of this encounter Procedures Procedure Name Priority Date/Time Associated Diagnosis Comments CBC (OUTSIDE LAB) Routine 04/28/2017 PROTIME (OUTSIDE LAB) Routine 04/27/2017 BNP Routine 04/27/2017 COMPREHENSIVE METABOLIC PANEL Routine 04/27/2017 documented in this encounter Results * CBC (OUTSIDE LAB) (04/28/2017) WBC 9.2 HGB 13.5 HCT 40.7 PLT 235 04/28/2017 us Doc [facility] LAB-OUTSIDE/ABSTRACTED Final Result * BNP (04/27/2017) B TYPE NATRIURETIC PEPTIDE 13.6 04/27/2017 us Doc [facility] LABORATORY Final Result * PROTIME (OUTSIDE LAB) (04/27/2017) PROTIME 10.7 INR 1.0 04/27/2017 us Doc [facility] LAB-OUTSIDE/ABSTRACTED Final Result * COMPREHENSIVE METABOLIC PANEL (04/27/2017) SODIUM S/P/B 139 POTASSIUM S/P/B 3.8 CO2 24 CHLORIDE S/P/B 104 GLUCOSE 154 CALCIUM S/P/B 9.1 BUN 9 CREATININE S/P/B 0.62 0.5 - 1.0 EGFR NON-AFR. AMER. >60 <=90 ALKALINE PHOSPHATASE S/P/B 119 ALT 31 AST 23 BILIRUBIN TOTAL S/P/B 0.8 ALBUMIN S/P/B 4.2 3.5 - 5.0 TOTAL PROTEIN S/P/B 8.1 GLOBULIN 3.9 04/27/2017 us Doc [facility] LABORATORY Edited Resul t - Final documented in this encounter Visit Diagnoses Not on filedocumented in this encounter Care Teams Pattern Illustrator Relationship Specialty Start Date End Date Heber Adorno MD PCP - General 03/11/17 06/14/17 Deisi Andrews MD [address] [place] [address] PCP - General FAMILY PRACTICE 06/15/17 10/14/19 Neva Holden MD [facility] [address] [place] [address] PCP - [facility] FAMILY PRACTICE 10/15/19 12/05/19 Deisi Andrews MD [address] [place] [address] PCP - [facility] FAMILY PRACTICE 12/06/19 02/13/20 Neva Holden MD . [facility] [address] [place] [address] PCP - [facility] PRACTICE 02/14/20 Asa Mcnamara MD [facility] [address] [place] [address] Husser Boot Repairer CARDIOVASCULAR DISEASE 05/15/16 documented as of this encounter
--- OUTSIDE RECORDS SUMMARY | 2024-11-12 04:47 | XMS_ITS | Encounter Summary ---
Author Organization [facility] Address [facility] [facility] [place] [address] [place] [address] Care Team Providers Care Locksmith Helper Name Role Phone Asa Mcnamara MD Unavailable [phone] Deisi Andrews MD Primary Care Provider [phone] Reason for Visit * Reason Onset Date Comments Other 12/09/2017 d/c call back Encounter Details Date Type Department Care Team (Late st Contact Info) Description 12/09/2017 Telephone [facility] Med/Surg 3rd [address] [place], [place] [id number] Deisi Andrews MD [address] [place] [address] Other (d/c call back) Social History Tobacco Use Types Packs/Day Years Used Date Smoking Tobacco: Every Day Cigarettes Smokeless Tobacco: Never Comments:2 cig a day Alcohol Use Standard Drinks/Week Comments No 0 (1 standard drink = 0.6 oz pur e alcohol) Comments Unknown Sex and Gender Information Value Date Recorded Sex Assigned at Female 12/06/2019 3:36 PM INVESTMENT MANAGER Legal Sex Female 5:20 PM CDT Gender Identity Female 12/06/2019 3:36 PM INVESTMENT MANAGER Sexual Orientation Straight 12/06/2019 3: 36 PM INVESTMENT MANAGER Occupation Industry Job Start Date Job End Date Not on file Not on file Not on file Not on file documented as of this encounter Plan of Treatment Not on file documented as of this encounter Visit Diagnoses Not on filedocumented in this encounter Care Teams Locksmith Helper Relationship Specialty Start Date End Date Deisi Andrews MD [address] [place] [address] [place] [address] PCP - General FAMILY PRACTICE 06/15/17 10/14/19 Asa Mcnamara MD [facility]. [facility] [address] [place] [address] [place] Windows Consultant CARDIOVASCULAR DISEASE 05/15/16 documented as of this encounter
--- OUTSIDE RECORDS SUMMARY | 2024-11-12 04:47 | XMS_ITS | Encounter Summary ---
Author Organization [facility] Address [address] [facility]. [place], [place] [address] [place] [address] Care Team Providers Care Water Meter Reader Name Role Phone Asa Mcnamara MD Unavailable [phone] Deisi Andrews MD Primary Care Provider [phone] Reason for Referral * Imaging (Routine) - Closed Specialty Diagnoses / Procedures Referred By Contac t Referred To Contact CARDIOLOGY Diagnoses PVD (peripheral vascular disease) (CMS/HCC) Symptoms involving cardiovascular system Procedures USV POST/PRE/OTHER KENZIE DILEEP Asa Mcnamara MD [address] [address] Phone: tel: fax: [place] [address] Phone: tel: Referral ID Status Reason Start Date Expiration Date Visits Re quested Visits Authorized [id number] Closed 12/07/2017 01/24/2018 1 1 STMENT SPECIALIST * Imaging (Routine) - Closed Specialty Diagnoses / Procedures Referred By Contac t Referred To Contact CARDIOLOGY Diagnoses PVD (peripheral vascular disease) (CMS/HCC) Symptoms involving cardiovascular system Procedures USV AORTA ILIAC IVC DUPLEX COMP Asa Mcnamara MD [facility]. [address] [address] Phone: tel: fax: [place] [address] Phone: tel: Referral ID Status Reason Start Date Expiration Date Visits Re quested Visits Authorized [id number] Closed 12/07/2017 01/24/2018 1 1 STMENT SPECIALIST Reason for Visit * Imaging (Routine) - Closed Specialty Diagnoses / Procedures Referred By Contac t Referred To Contact CARDIOLOGY Diagnoses PVD (peripheral vascular disease) (CMS/HCC) Symptoms involving cardiovascular system Procedures USV AORTA ILIAC IVC DUPLEX COMP Asa Mcnamara MD Three [address] [address] Phone: tel: fax: [place] [address] Phone: tel: Referral ID Status Reason Start Date Expiration Date Visits Re quested Visits Authorized [id number] Closed 12/07/2017 01/24/2018 1 1 Encounter Details Date Type Department Care Team (Late st Contact Info) Description 12/31/2017 7:40 AM INVESTMENT SPECIALIST - 12/31/2017 9:05 AM INVESTMENT SPECIALIST Hospital Encounter [facility] [place], [place] [address] Asa Mcnamara MD Three [facility]. [address] [id number] Discharge Disposition: Home or Self Care (Routine Discharge) Social History Tobacco Use Types Packs/Day Years Used Date Smoking Tobacco: Every Day Cigarettes Smokeless Tobacco: Never Comments:2 cig a day Alcohol Use Standard Drinks/Week Comments No 0 (1 standard drink = 0.6 oz pur e alcohol) Comments Unknown Sex and Gender Information Value Date Recorded Sex Assigned at Female 12/06/2019 3:36 PM INVESTMENT SPECIALIST Legal Sex Female 5:20 PM CDT Gender Identity Female 12/06/2019 3:36 PM INVESTMENT SPECIALIST Sexual Orientation Straight 12/06/2019 3: 36 PM INVESTMENT SPECIALIST Occupation Industry Job Start Date Job [...] USV AORTA ILIAC IVC DUPLEX COMP Routine 12/31/2017 8:54 AM INVESTMENT SPECIALIST PVD (peripheral vascular disease) Symptoms involving cardiovascular system USV KENZIE LTD DILEEP Routine 12/31/2017 8:54 AM INVESTMENT SPECIALIST PVD (peripheral vascular disease) Symptoms involving cardiovascular system documented in this encounter Results * USV AORTA ILIAC IVC DUPLEX COMP (12/31/2017 8:54 AM INVESTMENT SPECIALIST) Anatomical Region Laterality Modality NA Vascular Ultraso und 12/31/2017 8:00 AM INVESTMENT SPECIALIST Narrative 12/31/2017 7:31 PM INVESTMENT SPECIALIST ?[id number] DUPLEX IMAGING ? VASCULAR LAB Pat.Name: ??RODY CRUZ ?Pat.ID: ?[id number] ? St.Date: ?? 12/31/2017 ? Refer.: ??ASA [...] Procedure Note Leo Gutierrez MD - 12/31/2017 [id number] DUPLEX IMAGING VASCULAR LAB Pat.Name: RODY CRUZ Pat.ID: [id number] St.Date: 12/31/2017 Refer.: ASA MCNAMARA Exam Time: 8:00:00 AM Study [...] USV POST/PRE/OTHER KENZIE DILEEP (12/31/2017 8:54 AM INVESTMENT SPECIALIST) Anatomical Region Laterality Modality Extremity Vascular Ultraso und 12/31/2017 8:43 AM INVESTMENT SPECIALIST Narrative 01/02/2018 7:09 AM INVESTMENT SPECIALIST ?ARTERIAL DOPPLER - KENZIE ?BILATERAL LOWER EXTREMITY ? VASCULAR LAB ? Pat.Name: ??GELSO, RODY ?Pat.ID: ?[id number] ? St.Date: ?? 12/31/2017 ? Refer.: ??ASA MCNAMARA ? Exam Time: 8:43:00 AM [...] indicated. ++++++++++++++++++++++++++++++++++++ MEASUREMENTS: ++++++++++++++++++++++++++++++++++++ ?DOPPLER Left Dist COOK RESTAURANT ?? Dist COOK RESTAURANT PSV ?58.8 cm/s ? Left Dist BHUMI ?? Dist BHUMI PSV ?50.3 cm/s ? Right Dist COOK RESTAURANT ?? Dist COOK RESTAURANT PSV ?50.8 cm/s ? Right Dist BHUMI [...] EXTREMITY VASCULAR LAB Pat.Name: RODY CRUZ Pat.ID: [id number] St.Date: 12/31/2017 Refer.: ASA MCNAMARA Exam Time: 8:43:00 AM Study [...] indicated. ++++++++++++++++++++++++++++++++++++ MEASUREMENTS: ++++++++++++++++++++++++++++++++++++ DOPPLER Left Dist COOK RESTAURANT Dist COOK RESTAURANT PSV 58.8 cm/s Left Dist BHUMI Dist BHUMI PSV 50.3 cm/s Right Dist COOK RESTAURANT Dist COOK RESTAURANT PSV 50.8 cm/s Right Dist BHUMI Dist [...] AM Caesar Aguayo M.D. Asa Mcnamara MD VAS Final Result documented in this encounter Visit Diagnoses Diagnosis PVD (peripheral vascular disease) (CMS/HCC) Peripheral vascular disease, unspecified Symptoms involving cardiovascular system Other symptoms involving cardiovascular system documented in this encounter Care Teams Water Meter Reader Relationship Specialty Start Date End Date Deisi Andrews MD [address] [place] [address] [place] [address] PCP - General FAMILY PRACTICE 06/15/17 10/14/19 Asa Mcnamara MD [facility] [address] [place] [address] [place] Pharmaceutical Physician CARDIOVASCULAR DISEASE 05/15/16 documented as of this encounter
--- OUTSIDE RECORDS SUMMARY | 2024-11-12 04:47 | XMS_ITS | Encounter Summary ---
Author Organization [facility] Address [address] [facility] [place] [address] [place] [address] Care Team Providers Care Transportation Museum Helper Name Role Phone Asa Mcnamara MD Unavailable [phone] Deisi Andrews MD Primary Care Provider [phone] Reason for Referral * Imaging (Routine) - Closed Specialty Diagnoses / Procedures Referred By Contac t Referred To Contact CARDIOLOGY Diagnoses Carotid stenosis Procedures USV CAROTID DUPLEX DILEEP Asa Mcnamara MD [facility]. [facility] [address] [place] [address] Phone: tel: fax: [place] [address] Phone: tel: Referral ID Status Reason Start Date Expiration Date Visits Re quested Visits Authorized [id number] Closed 01/05/2018 07/28/2018 1 1 SUPERVISOR Encounter Details Date Type Department Care Team (Late st Contact Info) Description 01/05/2018 Orders Only [facility] at [facility], [facility] [address] [place] [address] Asa Mcnamara MD [facility] [address] [facility] [address] [place] [address] Social History Tobacco Use Types Packs/Day Years Used Date Smoking Tobacco: Every Day Cigarettes Smokeless Tobacco: Never Comments:1 pk day Alcohol Use Standard Drinks/Week Comments No 0 (1 standard drink = 0.6 oz pur e alcohol) Comments Unknown Sex and Gender Information Value Date Recorded Sex Assigned at Female 12/06/2019 3:36 PM DECK SUPERVISOR Legal Sex Female 5:20 PM CDT Gender Identity Female 12/06/2019 3:36 PM DECK SUPERVISOR Sexual Orientation Straight 12/06/2019 3: 36 PM DECK SUPERVISOR Occupation Industry Job Start Date Job End Date Not on file Not on file Not on file Not on file documented as of this encounter Plan of Treatment Not on file documented as of this encounter Results * USV CAROTID DUPLEX DILEEP (06/27/2018 9:57 AM CDT) Anatomical Region Laterality Modality Neck Vascular Ultraso und 06/27/2018 8:21 AM CDT Narrative 06/27/2018 5:33 PM CDT ?CAROTID ARTERY DUPLEX IMAGING ? VASCULAR LAB Pat.Name: ??RODY CRUZ ?Pat.ID: ?[id number] ? St.Date: ?? 06/27/2018 ? Refer.: ??Deisi Andrews ? Exam Time: 8:21:00 AM ?Study Type:SCOTTIE VS Duplex Carotid BI ??Age: ??1960,57Y ? Sex: ? FEMALE ? Sonogrphr: Liliana Mcbride, SAMRA ?Pat. Stat.:Outpatient ? History / Clinical:HAs. F/U PAD. Hx- BCIA balloon and LCIA stent 12/06/17. BCIA stents 06/2016. Lt CEA 2014. PAD. HTN. HLD. DM. CVA. tob. COPD. Prior 11/19/17- Rt 50-79%, Lt <50% Procedures:Qureshi scale, Color Doppler imaging, Doppler Spectral Analysis Race: ?W ? ++++++++++++++++++++++++++++++++++++ SUMMARY: ++++++++++++++++++++++++++++++++++++ Gail ICA Stenosis Criteria: ?? >50% = PSV >160 and/or Ratio 2.0-4.0; ? >70% = PSV >325 and/or Ratio >4.0; ? >80% = PSV >325 with EDV >140 ? (for CCA, ECA, Subc: ?? >50% = PSV >200, Ratio >2.0; ?? for Vert: ??>50% = PSV >150, Ratio >2.2) ? STENT Criteria: ??>50% = PSV >220 and/or Ratio >2.7; ? >80% = PSV >340 and/or Ratio >4.1 Brachial waveforms are decreased on the right, with triphasic flow, biphasic flow on the left. ??The right subclavian artery is triphasic, with moderate plaque, at origin-proximal. ??The left subclavian artery is triphasic, with moderate plaque, proximal, origin not visualized. Brachial systolic blood pressures are 152 on the right, 152 on the left. Right side: ??The right bifurcation-internal carotid artery has moderate, heterogeneous plaque. ??Internal carotid maximum velocity is 178/64 cm/s, with a ratio of 3.1 . ??The common carotid artery has no plaque present. ??The external carotid artery has minor plaque proximally. ??Vertebral artery flow is antegrade. ??No defined ulceration noted. Left side: ??The left bifurcation-internal carotid artery has mild, heterogeneous plaque. ??Internal carotid maximum velocity is 72 cm/s , with a ratio of 0.907 . ??The common carotid artery has no plaque present. ??The external carotid artery has elevated velocity 403 cm/s, severe plaque proximal-mid. ??Vertebral artery flow is antegrade. ??No defined ulceration noted. Compared to previous exam done 11/19/17 , there is no significant change. CONCLUSION: ? The right internal carotid shows 50-69% stenosis. ??Right vertebral artery is antegrade. ?? No evidence of ulceration. The left internal carotid shows 1-49% stenosis. ??Left vertebral artery is antegrade. ?? No evidence of ulceration. Elevated velocities in left external carotid artery consistent with >50% stenosis. Recommend follow up in 1 year. ++++++++++++++++++++++++++++++++++++ MEASUREMENTS: ++++++++++++++++++++++++++++++++++++ ?DOPPLER Right CCA Prox ?? Prox CCA PSV ? 111 cm/s ? Right CCA Dist ?? Dist CCA PSV ?76.4 cm/s ? ICA Prox ?? Prox ICA PSV ? 178 cm/s ?Prox ICA EDV ?64 cm/s Right ICA Mid ?? Mid ICA PSV ?111.4 cm/s ? Right ICA Dist ?? Dist ICA PSV ?60.4 cm/s ? Right ECA Prox ?? Prox ECA PSV ?98.8 cm/s ? Right Bifurcation ?? Bifurcation PSV ?58 cm/s ? Right Vertebral ?? Vertebral PSV ? 53 cm/s ? Right Prox SCA ?? Prox SCA PSV ? 209 cm/s ? Right ICA/CCA RATIO ?? ICA/CCA RATIO P ?? 3.1 ? Left CCA Prox ?? Prox CCA PSV ?96.4 cm/s ? Left CCA Dist ?? Dist CCA PSV ?78.8 cm/s ? Left ICA Prox ?? Prox ICA PSV ?50.1 cm/s ? Left ICA Dist ?? Dist ICA PSV ?71.5 cm/s ? Left ECA Prox ?? Prox ECA PSV ?? 403.3 cm/s ? Left Vertebral ?? Vertebral PSV ? 48 cm/s ? Left Prox SCA ?? Prox SCA PSV ? 226 cm/s ? Left ICA/CCA RATIO ?? ICA/CCA RATIO P 0.907 ? Signed 06/27/2018 05:33 PM Asa Mncamara M.D. Procedure Note Asa Mcnamara MD - 06/27/2018 CAROTID ARTERY DUPLEX IMAGING VASCULAR LAB Pat.Name: RODY CRUZ Pat.ID: [id number] .Date: 06/27/2018 Refer.MD: Deisi Andrews Exam Time: 8:21:00 AM Study Type:SCOTTIE VS Duplex Carotid BI Age: 3 1960,57Y Sex: FEMALE Sonogrphr: Liliana Mcbride RDMS Pat. Stat.:Outpatient History / Clinical:HAs. F/U PAD. Hx- BCIA balloon and LCIA stent 12/06/17. BCIA stents 06/2016. Lt CEA 2014. PAD. HTN. HLD. DM. CVA. tob. COPD. Prior 11/19/17- Rt 50-79%, Lt <50% Procedures:Qureshi scale, Color Doppler imaging, Doppler Spectral Analysis Race: W ++++++++++++++++++++++++++++++++++++ SUMMARY: ++++++++++++++++++++++++++++++++++++ Gail ICA Stenosis Criteria: >50% = PSV >160 and/or Ratio 2.0-4.0; >70% = PSV >325 and/or Ratio >4.0; >80% = PSV >325 with EDV >140 (for CCA, ECA, Subc: >50% = PSV >200, Ratio >2.0; for Vert: >50% = PSV >150, Ratio >2.2) STENT Criteria: >50% = PSV >220 and/or Ratio >2.7; >80% = PSV >340 and/or Ratio >4.1 Brachial waveforms are decreased on the right, with triphasic flow, biphasic flow on the left. The right subclavian artery is triphasic, with moderate plaque, at origin-proximal. The left subclavian artery is triphasic, with moderate plaque, proximal, origin not visualized. Brachial systolic blood pressures are 152 on the right, 152 on the left. Right side: The right bifurcation-internal carotid artery has moderate, heterogeneous plaque. Internal carotid maximum velocity is 178/64 cm/s, with a ratio of 3.1 . The common carotid artery has no plaque present. The external carotid artery has minor plaque proximally. Vertebral artery flow is antegrade. No defined ulceration noted. Left side: The left bifurcation-internal carotid artery has mild, heterogeneous plaque. Internal carotid maximum velocity is 72 cm/s , with a ratio of 0.907 . The common carotid artery has no plaque present. The external carotid artery has elevated velocity 403 cm/s, severe plaque proximal-mid. Vertebral artery flow is antegrade. No defined ulceration noted. Compared to previous exam done 11/19/17 , there is no significant change. CONCLUSION: The right internal carotid shows 50-69% stenosis. Right vertebral artery is antegrade. No evidence of ulceration. The left internal carotid shows 1-49% stenosis. Left vertebral artery is antegrade. No evidence of ulceration. Elevated velocities in left external carotid artery consistent with >50% stenosis. Recommend follow up in 1 year. ++++++++++++++++++++++++++++++++++++ MEASUREMENTS: ++++++++++++++++++++++++++++++++++++ DOPPLER Right CCA Prox Prox CCA PSV 111 cm/s Right CCA Dist Dist CCA PSV 76.4 cm/s ICA Prox Prox ICA PSV 178 cm/s Prox ICA EDV 64 cm/s Right ICA Mid Mid ICA PSV 111.4 cm/s Right ICA Dist Dist ICA PSV 60.4 cm/s Right ECA Prox Prox ECA PSV 98.8 cm/s Right Bifurcation Bifurcation PSV 58 cm/s Right Vertebral Vertebral PSV 53 cm/s Right Prox SCA Prox SCA PSV 209 cm/s Right ICA/CCA RATIO ICA/CCA RATIO P 3.1 Left CCA Prox Prox CCA PSV 96.4 cm/s Left CCA Dist Dist CCA PSV 78.8 cm/s Left ICA Prox Prox ICA PSV 50.1 cm/s Left ICA Dist Dist ICA PSV 71.5 cm/s Left ECA Prox Prox ECA PSV 403.3 cm/s Left Vertebral Vertebral PSV 48 cm/s Left Prox SCA Prox SCA PSV 226 cm/s Left ICA/CCA RATIO ICA/CCA RATIO P 0.907 Signed 06/27/2018 05:33 PM Asa Mcnamara M.D. us Asa Mcnamara MD [facility] Final Result documented in this encounter Visit Diagnoses Diagnosis Carotid stenosis- Primary Occlusion and stenosis of carotid artery without mention of cerebral infarction documented in this encounter Care Teams Transportation Museum Helper Relationship Specialty Start Date End Date Deisi Andrews MD [address] [place] [address] [place] [address] PCP - General FAMILY PRACTICE 06/15/17 10/14/19 Asa Mcnamara MD [facility]. [facility] [address] [place] [address] [place] Sterilization Technician CARDIOVASCULAR DISEASE 05/15/16 documented as of this encounter
--- OUTSIDE RECORDS SUMMARY | 2024-11-12 04:47 | XMS_ITS | Encounter Summary ---
Author Organization [facility] Address [address] [place] [address] [place] [address] Care Team Providers Care Software Quality Specialist Name Role Phone Asa Mcnamara MD Unavailable [phone] Heber Adorno MD Primary Care Provider Unavailable Encounter Details Date Type Department Care Team (Late st Contact Info) Description 04/22/2017 HEALTH DIRECTOR ONLY [facility] [address] [place] [address] Asa Mcnamara MD [address] [address] Social History Tobacco Use Types Packs/Day Years Used Date Smoking Tobacco: Every Day Cigarettes Smokeless Tobacco: Never Alcohol Use Standard Drinks/Week Comments No 0 (1 standard drink = 0.6 oz pur e alcohol) Comments Unknown Sex and Gender Information Value Date Recorded Sex Assigned at Female 12/06/2019 3:36 PM BORING 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 DOUBLE END Legal Sex Female 5:20 PM CDT Gender Identity Female 12/06/2019 3:36 PM BORING 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 DOUBLE END Sexual Orientation Straight 12/06/2019 3: 36 PM BORING 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 DOUBLE END Occupation Industry Job Start Date Job End Date Not on file Not on file Not on file Not on file documented as of this encounter OR Notes * Op Note - Asa Mcnamara MD - 04/22/2017 2:16 PM CDT RODY CRUZ MD: Acct: [id number] Admit/Service Date: 04/22/17 Discharge Date: 04/22/17 : 1960 Pt Type: DEP SDC Sex: F Ord Site: [facility] CHART DOCUMENT PREOPERATIVE DIAGNOSIS: POSTOPERATIVE DIAGNOSIS: DATE: 04/22/2017 SURGEON: ASA MCNAMARA M.D. INDICATIONS: 1. Intermittent claudication. 2. Abnormal duplex ultrasound suggestive of bilateral common iliac in-stent restenosis. 3. Peripheral vascular disease and history of endovascular intervention of bilateral common iliac vessels. PROCEDURE: The patient was prepped and draped using aseptic technique. I supervised the moderate sedation throughout the procedure. The right groin was anesthetized using 1% lidocaine. Using ultrasound guidance and Seldinger technique, the right common femoral artery was cannulated. A 5-Cypriot sheath was placed. A Omni Flush catheter was advanced into the abdominal aorta. Aortoiliac angiogram was performed in the AP projection and subsequently in orthogonal views. This catheter was now used to engage the left common iliac artery. A soft Glidewire was gently advanced into the left common iliac and extending into the left superficial femoral artery. The Omni Flush catheter was exchanged for a 4-Cypriot P[place] catheter. This catheter was very carefully advanced through the left common iliac stent. The tip of the catheter was parked distal to the stent. Pressures were recorded. The catheter was now pulled back into the aorta, pullback vein was recorded. The catheter was now below the right common iliac stent and pressures were recorded. Nitroglycerin was given before pressure measurements. Post nitroglycerin, the gradient was approximately 10 mm on the left side and there was less than 10 mm gradient on the right side. Both were considered insignificant. This catheter was now used to removed. We went back to an Omni Flush catheter. A nonselective bilateral lower extremity runoff was performed. The catheter was removed. The patient was taken to the recovery in stable condition. FINDINGS: Aortogram: The aortoiliac bifurcation has mild atherosclerotic disease. Bilateral common iliac stents are patent. 20-30% waist in the right common iliac stent, not necessarily re-stenosis, the stent appears slightly undersized to the vessel. On the left side there is approximately 20% waist. There is mild disease in the distal left common iliac artery below the stent. There is dxib-hb-arhmmkyq disease in bilateral hypogastric vessels. No significant disease in bilateral external iliac vessels. Bilateral lower extremity runoff: No significant disease noted in the right common femoral, superficial femoral, and popliteal arteries. The profunda is patent. There is 3-vessel runoff to the right foot with no significant infrapopliteal disease. The peroneal artery is a small-caliber vessel. No significant disease noted in the left common femoral, superficial femoral, and popliteal arteries. Profunda is patent. Again, 3-vessel runoff to the left foot with peroneal being a very small caliber vessel. CONCLUSIONS: 1. Patent bilateral common iliac stents with no significant pressure gradient across the stent. 2. No significant disease noted in the femoral-popliteal and infrapopliteal vessels bilaterally. RECOMMENDATIONS: Continue medical management and risk factor modification. Electronically Signed By: ASA MCNAMARA M.D. 04/26/2017 01:15 P ASA MCNAMARA M.D. P #[id number] P/ma cc: Michelle RUIZ M.D. documented in this encounter Plan of Treatment Not on file documented as of this encounter Visit Diagnoses Not on filedocumented in this encounter Care Teams Software Quality Specialist Relationship Specialty Start Date End Date Heber Adorno MD PCP - General 03/11/17 06/14/17 Aas Mcnamara MD [facility]. [place] [id number] [place] [address] [place] Print Producer CARDIOVASCULAR DISEASE 05/15/16 documented as of this encounter
--- OUTSIDE RECORDS SUMMARY | 2024-11-12 04:47 | XMS_ITS | Encounter Summary ---
Author Organization [facility] Address Count includes the [facility]. [place], [place] [address] [place] [address] Care Team Providers Care Horizontal Drill Operator Name Role Phone Asa Mcnamara MD Unavailable [phone] Deisi Andrews MD Primary Care Provider [phone] Encounter Details Date Type Department Care Team (Late st Contact Info) Description 01/05/2018 Orders Only [facility] at [address] [address] Marilu Quinn, A Social History Tobacco Use Types Packs/Day Years Used Date Smoking Tobacco: Every Day Cigarettes Smokeless Tobacco: Never Comments:1 pk day Alcohol Use Standard Drinks/Week Comments No 0 (1 standard drink = 0.6 oz pur e alcohol) Comments Unknown Sex and Gender Information Value Date Recorded Sex Assigned at Female 12/06/2019 3:36 PM SNOWBOARDING INSTRUCTOR Legal Sex Female 5:20 PM CDT Gender Identity Female 12/06/2019 3:36 PM SNOWBOARDING INSTRUCTOR Sexual Orientation Straight 12/06/2019 3: 36 PM SNOWBOARDING INSTRUCTOR Occupation Industry Job Start Date Job End Date Not on file Not on file Not on file Not on file documented as of this encounter Plan of Treatment Not on file documented as of this encounter Visit Diagnoses Not on filedocumented in this encounter Care Teams Horizontal Drill Operator Relationship Specialty Start Date End Date Deisi Andrews MD [address] [place] [address] [place] [address] PCP - General FAMILY PRACTICE 06/15/17 10/14/19 Asa Mcnamara MD [facility]. [facility] [address] [place] [address] [place] Gis Database Administrator CARDIOVASCULAR DISEASE 05/15/16 documented as of this encounter
--- OUTSIDE RECORDS SUMMARY | 2024-11-12 04:47 | XMS_ITS | Encounter Summary ---
Author Organization [facility] Address [address] [facility] [address] [place] [address] Care Team Providers Care Geological E Logger Name Role Phone Asa Mcnamara MD Unavailable [phone] Deisi Andrews MD Primary Care Provider [phone] Reason for Referral * Imaging (Routine) - Closed Specialty Diagnoses / Procedures Referred By Contac t Referred To Contact CARDIOLOGY Diagnoses PVD (peripheral vascular disease) with claudication (CMS/HCC) Symptoms involving cardiovascular system Procedures USV AORTA ILIAC IVC DUPLEX COMP US AORTA DUPLEX COMP (72343) Asa Mcnamara MD [facility]. [address] [address] Phone: tel: fax: [facility] [place] [address] Phone: tel: Referral ID Status Reason Start Date Expiration Date Visits Re quested Visits Authorized [id number] Closed 08/18/2017 12/20/2017 1 1 * Imaging (Routine) - Closed Specialty Diagnoses / Procedures Referred By Contac t Referred To Contact CARDIOLOGY Diagnoses Stenosis of carotid artery, unspecified laterality Procedures USV CAROTID DUPLEX DILEEP (52947) Asa Mcnamara MD [facility]. [address] [place] [address] Phone: tel: fax: [facility] [place] [address] Phone: tel: Referral ID Status Reason Start Date Expiration Date Visits Re quested Visits Authorized [id number] Closed 08/18/2017 12/20/2017 1 1 Reason for Visit * Reason Comments Follow Up PVD CHF Hypertension Encounter Details Date Type Department Care Team (Late st Contact Info) Description 08/18/2017 12:00 PM CDT Office Visit [facility] AT [address] [id number] Asa Mcnamara MD [facility]. [address] [id number] Follow Up (PVD ); CHF; Hypertension Social History Tobacco Use Types Packs/Day Years Used Date Smoking Tobacco: Every Day Cigarettes Smokeless Tobacco: Never Comments:2 cig a day Alcohol Use Standard Drinks/Week Comments No 0 (1 standard drink = 0.6 oz pur e alcohol) Comments Unknown Sex and Gender Information Value Date Recorded Sex Assigned at Female 12/06/2019 3:36 PM BROILER MANAGER Legal Sex Female 5:20 PM CDT Gender Identity Female 12/06/2019 3:36 PM BROILER MANAGER Sexual Orientation Straight 12/06/2019 3: 36 PM BROILER MANAGER Occupation Industry Job Start Date Job End Date Not on file Not on file Not on file Not on file documented as of this encounter Last Filed Vital Signs Vital Sign Reading Time Taken Comments Blood Pressure 112/70 08/18/2017 1:06 PM CDT retaken by Pulse 104 08/18/2017 11:56 AM CDT Temperature - - Respiratory Rate - - Oxygen Saturation - - Inhaled Oxygen Concentration - - Weight 104 kg (229 lb 3.2 oz) 7 11:56 AM CDT Height 160 cm (5' 3 ) 08/18/2017 11:56 AM CDT Body Mass Index 40.6 08/18/2017 11:56 AM CDT documented in this encounter Patient Instructions * Patient Instructions* Porsha David - 08/18/2017 12:00 PM CDT Images from the original note were not included. Index Arabic All??languages Related??topics High Blood Pressure: Essential Hypertension COPELAND POINTS ?? High blood pressure means that your blood pressure is higher than normal. It is called essentialhypertension when no cause for it can be found. ?? Weight loss, changes in your diet, and exercise may be the only treatment you need. If lifestylechanges don???t lower your blood pressure enough, your healthcare provider may prescribe medicine. Many people need to take 2 or more medicines to bring their blood pressure down to a healthy level. ?? Talk to your healthcare provider about your personal and family medical history and your lifestyle habits. This will help you know what you can do to lower your risk for high blood pressure. What is high blood pressure? Blood pressure is the force of blood against artery calvin as the heart pumps blood through the body. You may be told that you have high blood pressure (hypertension) if your blood pressure is higher than normal. Hypertension is called essential when no cause for it can be found. When the cause of hy pertension is known, such as from kidney disease or a tumor, it is called secondary hypertension. Blood pressure can rise and fall with exercise, rest, or emotions. ?? Normal resting blood pressure ranges up to 120/80 ( 120 over 80 ). The first number (120 in thisexample) is the pressure when the heart beats and pushes blood out to the rest of the body. The second number (80 in this example) is the pressure when the heart rests between beats. ?? Blood pressure is borderline high if it is 120/80 or higher but less than 140/90. ?? High blood pressure is 140/90 or higher for most people. If you have chronic kidney disease, 130/80 or higher is considered high blood pressure. Why is high blood pressure a problem? High blood pressure is a problem in many ways. ?? Your heart has to work harder to pump blood through your body. The added workload on the heart causes thickening of the heart muscle. Over time, the thickening damages the heart muscle so that it can no longer pump normally. This can lead to a disease called heart failure. ?? The higher pressure in your arteries may cause them to weaken and bleed, resulting in a stroke. ?? As you get older, blood vessels may become hardened. High blood pressure speeds up this process.Hardened or narrowed arteries may not be able to supply enough blood to all parts of your body. ?? High blood pressure may lead to atherosclerosis, which is when deposits of cholesterol, fatty substances, and blood cells clog up an artery. Atherosclerosis is the leading cause of heart attacks. It can also cause strokes. ?? Your kidneys, brain, and eyes may be damaged. You may need treatment for high blood pressure for the rest of your life. However, proper treatmentcan control your blood pressure and help prevent heart disease, heart attack, or stroke. It can also help prevent long-term health problems, such as heart failure, kidney failure, blindness, and dementia. If you already have some complications, such as breathing problems or chest pain, lowering your blood pressure may make these problems less severe. What is the cause? There are no clear causes of essential hypertension. However, many things can increase blood pressure, such as: ?? Being overweight ?? Smoking ?? Eating a diet high in salt ?? Drinking a lot of alcohol Other important factors include: ?? Race. Americans are more likely to have high blood pressure. ?? Gender. Males have a greater chance of developing high blood pressure than women until age 55. After the age of 75, women are more likely to develop high blood pressure than men. ?? Heredity. If you have parents with high blood pressure, you are more at risk. ?? Age. The older you get, the more likely you are to have high blood pressure. Also, some medicines increase blood pressure. Stress and drinking caffeine can make blood pressure go up temporarily, but it???s not clear that they have any long-term effects on blood pressure. What are the symptoms? You may have high blood pressure for a long time without symptoms. You may not be able to tell by the way you feel that your blood pressure is high. The only way to find out if your blood pressure ishigh is to have it measured. That's why it???s important to have your blood pressure checked at least once a year. When high blood pressure does cause symptoms, they may include: ?? Headaches ?? Nosebleeds ?? Getting tired easily ?? Blurred vision ?? Dizziness ?? Lightheadedness ?? Feeling like your heart is racing or fluttering ?? Shortness of breath ?? Chest pain ?? Memory problems ?? Daytime sleepiness How is it diagnosed? Blood pressure is checked at most healthcare visits. High blood pressure is usually discovered during one of these visits. If your blood pressure is high, you will be asked to return for follow-up checks. Your healthcare provider will ask about your personal and family medical history and examine you. Tests to look for a possible cause of high blood pressure may include: ?? Urine and blood tests ?? Chest X-ray ?? Electrocardiogram (ECG), which measures and records your heartbeat You may be asked to use a portable blood-pressure measuring device, which will take your pressure at different times during day and night. How is it treated? If your blood pressure is borderline high, you may be able to bring it down to a normal level without medicine. Weight loss, changes in your diet, and exercise may be the only treatment you need. If lifestyle changes don???t lower your blood pressure enough, your healthcare provider may prescribe medicine. Many people need to take 2 or more medicines to bring their blood pressure down to a healthy level. It may take several weeks or months to find the best treatment for you. How can I take care of myself? If you have high blood pressure, there are things you can do now to take care of yourself and to prevent problems in the future: ?? Follow your treatment plan and know how to take your medicines. ?? Work with your healthcare provider to find what lifestyle changes and medicines are right for you. ?? Follow the directions that come with your medicine, including information about food or alcohol.Make sure you know how and when to take your medicine. Do not take more or less than you are supposed to take. ?? Many medicines have side effects. A side effect is a symptom or problem that is caused by the medicine. Ask your healthcare provider or pharmacist what side effects your medicine may cause and what you should do if you have side effects. Ask if you should avoid some nonprescription medicines. ?? Be careful with nonprescription medicines or herbal supplements. Some can raise blood pressure. This includes diet pills, cold and pain medicines, and energy boosters. Read labels or ask your pharmacist if the medicine or supplement affects blood pressure. Some illegal drugs, like cocaine, can also affect blood pressure. ?? Check your blood pressure (or have it checked) as often as your provider advises. Keep a diary of the readings. A diary is also a good place to note your exercise, weight, salt intake, types of food you are eating, and your feelings. This can help you learn how these things can affect your bloodpressure. Take your diary with you when you visit your provider. It may help you and your provider manage your blood pressure and adjust your medicines if needed. ?? Don???t smoke. ?? Eat a healthy diet that is low in salt, saturated fat, trans fat, and cholesterol. Include lots of fruits, vegetables, and fat-free or low-fat milk and milk products. ?? Get regular exercise, according to your healthcare provider's advice. For example, you might walk, bike, or swim at least 30 minutes 3 to 5 times a week. ?? Limit the amount of alcohol you drink. Moderate drinking is up to 1 drink a day for women and upto 2 drinks for men. ?? Lose weight if you need to. ?? Try to reduce the stress in your life or learn how to deal better with situations that make you feel anxious. ?? Ask your healthcare provider: ?? How and when you will get your test results ?? How long it will take to recover ?? If there are activities you should avoid and when you can return to your normal activities ?? How to take care of yourself at home ?? What symptoms or problems you should watch for and what to do if you have them ?? Make sure you know when you should come back for a checkup. Keep all appointments for provider visits or tests. How can I help prevent high blood pressure? You can help prevent this disease with a heart-healthy lifestyle: ?? Eat a healthy diet and keep a healthy weight. ?? Stay fit with the right kind of exercise for you. ?? Decrease stress. ?? Don???t smoke. ?? Limit your use of alcohol. Talk to your healthcare provider about your personal and family medical history and your lifestyle habits. This will help you know what you can do to lower your risk for high blood pressure. Developed by [employer]. Adult Advisor 2017.1 published by [employer]. Last modified: 2016-03-02 Last reviewed: 2016-02-28 This content is reviewed periodically and is subject to change as new health information becomes available. The information is intended to inform and educate and is not a replacement for medical evaluation, advice, diagnosis or treatment by a healthcare professional. References Adult Advisor 2017.1 Index Copyright ?? 2017 [employer], a division of [employer]. All rights reserved. documented in this encounter Progress Notes * Asa Mcnamara MD - 08/18/2017 12:00 PM CDT Chief Complaint: Follow Up (PVD ); CHF; and Hypertension Recommendations/Plan: ASSESSMENT: 1. Bilateral lower extremity peripheral [...] apnea, not on CPAP. ?? RECOMMENDATIONS/PLAN: Ms. Crzu is stable from a cardiac standpoint. She is not complaining of chest pain anymore. She complains of dyspnea on exertion. This is likely multifactorial. She is morbidlyobese, has long-standing history of smoking and likely has obstructive sleep apnea.. Symptoms have improved with furosemide. On exam, she has minimal pedal edema. Advised her to use compression stockings. Continue furosemide at the current dose. Renal function is stable. From a peripheral vascular disease standpoint, she complains of discomfort in her legs with walking. Recent angiogram showed widely patent stent and bilateral iliac arteries and no significant disease otherwise. There may be an element of arthritis in the hip joint. She reports improvement in symptoms with high-dose cilostazol. We will continue with medical management for now and repeat Doppler studies in 3 months. She needs aggressive risk factor modification. Blood pressure is well controlled. She is on moderate intensity statin. Lipid panel has significantly improved. Answered about quitting smoking. Ms. Cruz had left carotid endarterectomy in 2014. Follow-up duplex scan shows no significant stenosis in either carotid artery. We will continue with close clinical follow-up and repeat Doppler studies periodically. ?? Patient had sleep study a few weeks ago. She is waiting for the CPAP. Optimal treatment of sleep apnea should also help improve her symptoms of shortness of breath. ? It has been my pleasure to participate in Ms. Cruz's care. She will return for a follow-up visit in 3 months, arlier if needed. Thank you for the consultation. ??History of Present Illness: Ms. Cruz is a pleasant 56-year-old female with type 2 diabetes mellitus, hypertension and dyslipidemia and peripheral vascular disease. She returns for a scheduled follow-up visit. She was started on should assume might at her last visit. She reports improvement in her symptoms. She thinks she is breathing better. She complains of swelling in the legs, if she is on her feet all day long. She is using compression stockings. Denies chest pain. Functional capacity remains limited. She gets out ofbreath with mild activity. She continues to complain of discomfort in her right hip high and calf with walking. Her right hip also hurts sometimes at rest. She reports improvement in symptoms with cil ostazol. Unfortunately she continues to smoke more than a pack of cigarettes a day. ?? DATA REVIEWED: EKG done on 05/17/2017. Sinus rhythm, normal intervals. Normal ECG. Holter monitor done 06/22/2017. Sinus rhythm with episodes of sinus tachycardia. No significant ectopy or arrhythmias noted. Symptoms do not correlate with any significant rhythm abnormality. Vascular angiogram done 04/22/2017. Patent bilateral common [...] stress test. Normal myocardial perfusion, EF 69%. Labs done 07/07/2017. Sodium 139, potassium 4.5, BUN 17, creatinine 0.95. ? Medications: Current Outpatient Prescriptions: ??? cyclobenzaprine 10 MG tablet, Take 1 tablet (10 mg total) by mouth as needed for Muscle Spasms., Disp: , Rfl: ??? fluoxetine 40 MG capsule, Take 1 capsule (40 mg total) by mouth daily., Disp: , Rfl: ??? isosorbide mononitrate ER 30 MG 24 hr tablet, Take 1 tablet (30 mg total) by mouth daily., Disp: 30 tablet, Rfl: 5 ??? nitroGLYCERIN 0.[address], [address] 1 tablet (0.4 mg total) under the tongue every 5 (five) minutes as needed for Chest Pain (If no relief after 3rd dose, contact 911.)., Disp: 25 tablet, Rfl: 1 ??? AEROSPAN 80 MCG/ACT Aero Soln, Inhale [...] pairs, Disp: 2 Container, Rfl: 0 ??? fexofenadine (SAMANTHA ALLERGY) 180 MG tablet, [...] needed for Pain., Disp: , Rfl: ??? losartan 100 MG [...] (two) times daily., Disp: , Rfl: ??? potassium chloride CR 20 MEQ tablet, Take 1 tablet (20 mEq total) by mouth daily., Disp: 30 tablet, Rfl: 3 ??? pravastatin 40 MG tablet, Take 1 tablet by mouth daily., Disp: , Rfl: ??? trazodone 50 MG tablet, Take 1 tablet by mouth as needed., Disp: , Rfl: Allergies Allergen Reactions ??? Haloperidol Seizure ??? Penicillins Redness ??? Resperal-Dm [[id number] [id number]] Seizure ??? Triazolam Seizure Past Medical History: [...] Negative for hemoptysis. Cardiovascular: Negative for chest pain and palpitations. Gastrointestinal: Negative for blood in stool and melena. Genitourinary: Negative for dysuria. Musculoskeletal: Positive for joint pain and myalgias. Skin: Negative for rash. Neurological: Positive for tingling, weakness and headaches. Negative for sensory change and focal weakness. Endo/Heme/Allergies: Positive for polydipsia. Bruises/bleeds easily. Filed Vitals: 08/18/17 1156 08/18/17 1306 BP: 126/84 112/70 Pulse: 104 Weight: 104 kg (229 lb 3.2 oz) Height: 5' 3 (1.6 m) Physical Exam [...] for this visit on 08/12/16. Diagnoses/Impression: 1. Essential (primary) hypertension BASIC METABOLIC PANEL LIPID PANEL 2. PVD (peripheral vascular disease) with claudication BASIC METABOLIC PANEL LIPID PANEL US AORTA DUPLEX COMP USV ART EXER W KENZIE LOW EXT 3. Hyperlipidemia, mixed BASIC METABOLIC PANEL LIPID PANEL 4. Symptoms involving cardiovascular system US AORTA DUPLEX COMP USV ART EXER W KENZIE LOW EXT 5. Carotid stenosis USV CAROTID DUPLEX DILEEP documented in this encounter Plan of Treatment Scheduled Orders Name Type Priority Associated Diagnoses Orde r Schedule BASIC METABOLIC PANEL Lab Routine Essential (primary) hypertension PVD (peripheral vascular disease) with claudication Hyperlipidemia, mixed Expected: 11/19/2017, Expires: 08/18/2018 LIPID PANEL Lab Routine Essential (primary) hypertension PVD (peripheral vascular disease) with claudication Hyperlipidemia, mixed Expected: 11/19/2017, Expires: 08/18/2018 documented as of this encounter Procedures Procedure Name Priority Date/Time Associated Diagnosis Comments USV CAROTID DUPLEX DILEEP Routine 11/19/2017 11:05 AM BROILER MANAGER Stenosis of carotid artery, unspecified laterality documented in this encounter Results * USV AORTA ILIAC IVC DUPLEX COMP (11/19/2017 11:15 AM BROILER MANAGER) Anatomical Region Laterality Modality NA Vascular Ultraso und 11/19/2017 9:37 AM BROILER MANAGER Narrative 11/20/2017 1:54 PM BROILER MANAGER ?[id number] DUPLEX IMAGING ? VASCULAR LAB Pat.Name: ??GELSO, RODY ?Pat.ID: ?[id number] ? St.Date: ?? 11/19/2017 ?Exam Time: 9:37:00 [...] Procedure Note Caesar Aguayo MD - 11/20/2017 [id number] DUPLEX IMAGING VASCULAR LAB Pat.Name: RODY CRUZ Pat.ID: [id number] St.Date: 11/19/2017 Exam Time: 9:37:00 AM Study Type:SCOTTIE VS Aorta IVC Iliac Duplex DILEEP Age: 2 1960,56Y Sex: FEMALE Sonogrphr: Roxie Caba RVT Pat. Stat.:Outpatient History / Clinical:f/u PVD; [...] Mcnamara MD VASC Final Result * USV CAROTID DUPLEX DILEEP ([id number]) (11/19/2017 11:05 AM BROILER MANAGER) Anatomical Region Laterality Modality Neck Vascular Ultraso und 11/19/2017 10:1 7 AM BROILER MANAGER Narrative 11/20/2017 3:26 AM BROILER MANAGER ?CAROTID DUPLEX IMAGING ? VASCULAR LAB Pat.Name: ??RODY CRUZ ?Pat.ID: ?[id number] ? St.Date: ?? 11/19/2017 ? Refer.MD: ??[id number] NIDA Brand Exam Time: 10:17:00 AM ? Study Type:SCOTTIE VS Duplex Carotid BI ??Age: ??1960,56Y ? Sex: ? FEMALE ? Sonogrphr: Caesar Quinn, RVVonda ? History / Clinical:known carotid disease, left carotid endarterectomy, stroke, patient denies stroke symptoms. Procedures:Qureshi scale, Color Doppler imaging, Doppler Spectral Analysis Race: ?W ? ++++++++++++++++++++++++++++++++++++ SUMMARY: ++++++++++++++++++++++++++++++++++++ ?? Gail ICA Stenosis Criteria: ?? >50% = [...] >340 and/or Ratio >4.1 Brachial waveforms are symmetrical bilaterally, with triphasic flow. The right subclavian artery is bi-triphasic. ??The left subclavian artery is bi-triphasic. Right side: ??The right bifurcation-internal carotid artery has moderate, heterogeneous, irregular plaque. ??Internal carotid maximum velocity is 179/58.1 cm/s, with a ratio of 2.46 . ??The common carotid artery has mild, heterogeneous plaque present. ??The external carotid artery has mild, heterogeneous plaque proximally. ??Vertebral artery flow is antegrade. ??No defined ulceration noted. Left side: ??The left bifurcation-internal carotid artery has mild, homogeneous plaque. ??Internal carotid maximum velocity is 64.9/23.1 cm/s , with a ratio of 1.03 . ??The common carotid artery has mild, heterogeneous plaque present. ??The external carotid artery has severe, heterogeneous plaque proximally. ??Vertebral artery flow is antegrade. No defined ulceration noted. CONCLUSION: ? The right internal carotid shows 50-79% stenosis. ??Right vertebral artery is antegrade. ?? No evidence of ulceration. The left internal carotid shows 1-49% stenosis. ??Left vertebral artery is antegrade. ?? No evidence of ulceration. Recommend follow up in 1 year. ++++++++++++++++++++++++++++++++++++ MEASUREMENTS: ++++++++++++++++++++++++++++++++++++ ?DOPPLER Right CCA Prox ?? Prox CCA PSV ?? 121.4 cm/s ? Right CCA Dist ?? Dist CCA PSV ?73.2 cm/s ? Right ICA Prox ?? Prox ICA PSV ?? 179.8 cm/s ?Prox ICA EDV ?58.1 cm/s Right ICA Mid ?? Mid ICA PSV ? 64 cm/s ?Mid ICA EDV ? 16.6 cm/s Right ICA Dist ?? Dist ICA PSV ?44.6 cm/s ?Dist ICA EDV ?15.4 cm/s Right ECA Prox ?? Prox ECA PSV ?? 123.3 cm/s ? Right Vertebral ?? Vertebral PSV ?? 50.9 cm/s ? Right ICA/CCA RATIO ?? ICA/CCA RATIO P ??2.46 ? Left CCA Prox ?? Prox CCA PSV ?? 151.8 cm/s ? Left CCA Dist ?? Dist CCA PSV ?66.3 cm/s ? Left ICA Prox ?? Prox ICA PSV ?64.9 cm/s ?Prox ICA EDV ?23.1 cm/s Left ICA Mid ?? Mid ICA PSV ? 68.3 cm/s ?Mid ICA EDV ? 31 cm/s Left ICA Dist ?? Dist ICA PSV ?44.3 cm/s ?Dist ICA EDV ?18 cm/s Left ECA Prox ?? Prox ECA PSV ?? 335.4 cm/s ? Left ICA/CCA RATIO ?? ICA/CCA RATIO P ??1.03 ? Brachial Artery ?? Right Brachial ?? 84.5 cm/s ? Left Brachial A ? 0 ? Left Brachial A ??80.8 cm/s ? Subclavian ?? Right Subclavia ?92 cm/s ? Signed 11/20/2017 03:26 AM Leo Gutierrez M.D. Procedure Note Leo Gutierrez MD - 11/20/2017 CAROTID DUPLEX IMAGING VASCULAR LAB Pat.Name: RODY CRUZ Pat.ID: [id number] .Date: 11/19/2017 : [id number] INDA Brand Exam Time: 10:17:00 AM Study Type:SCOTTIE VS Duplex Carotid BI Age: 2 1960,56Y Sex: FEMALE Sonogrphr: Caesar Quinn RVT History / Clinical:known carotid disease, left carotid endarterectomy, stroke, patient denies stroke symptoms. Procedures:Qureshi scale, Color Doppler imaging, Doppler Spectral [...] >340 and/or Ratio >4.1 Brachial waveforms are symmetrical bilaterally, with triphasic flow. The right subclavian artery is bi-triphasic. The left subclavian artery is bi-triphasic. Right side: The right bifurcation-internal carotid artery has moderate, heterogeneous, irregular plaque. Internal carotid maximum velocity is 179/58.1 cm/s, with a ratio of 2.46 . The common carotid artery has mild, heterogeneous plaque present. The external carotid artery has mild, heterogeneous plaque proximally. Vertebral artery flow is antegrade. No defined ulceration noted. Left side: The left bifurcation-internal carotid artery has mild, homogeneous plaque. Internal carotid maximum velocity is 64.9/23.1 cm/s , with a ratio of 1.03 . The common carotid artery has mild, heterogeneous plaque present. The external carotid artery has severe, heterogeneous plaque proximally. Vertebral artery flow is antegrade. No defined ulceration noted. CONCLUSION: The right internal carotid shows 50-79% stenosis. Right vertebral artery is antegrade. No evidence of ulceration. The left internal carotid shows 1-49% stenosis. Left vertebral artery is antegrade. No evidence of ulceration. Recommend follow up in 1 year. ++++++++++++++++++++++++++++++++++++ MEASUREMENTS: ++++++++++++++++++++++++++++++++++++ DOPPLER Right CCA Prox Prox CCA PSV 121.4 cm/s Right CCA Dist Dist CCA PSV 73.2 cm/s Right ICA Prox Prox ICA PSV 179.8 cm/s Prox ICA EDV 58.1 cm/s Right ICA Mid Mid ICA PSV 64 cm/s Mid ICA EDV 16.6 cm/s Right ICA Dist Dist ICA PSV 44.6 cm/s Dist ICA EDV 15.4 cm/s Right ECA Prox Prox ECA PSV 123.3 cm/s Right Vertebral Vertebral PSV 50.9 cm/s Right ICA/CCA RATIO ICA/CCA RATIO P 2.46 Left CCA Prox Prox CCA PSV 151.8 cm/s Left CCA Dist Dist CCA PSV 66.3 cm/s Left ICA Prox Prox ICA PSV 64.9 cm/s Prox ICA EDV 23.1 cm/s Left ICA Mid Mid ICA PSV 68.3 cm/s Mid ICA EDV 31 cm/s Left ICA Dist Dist ICA PSV 44.3 cm/s Dist ICA EDV 18 cm/s Left ECA Prox Prox ECA PSV 335.4 cm/s Left ICA/CCA RATIO ICA/CCA RATIO P 1.03 Brachial Artery Right Brachial 84.5 cm/s Left Brachial A 0 Left Brachial A 80.8 cm/s Subclavian Right Subclavia 92 cm/s Signed 11/20/2017 03:26 AM Leo Gutierrez M.D. Asa Mcnamara MD VAS Final Result documented in this encounter Visit Diagnoses Diagnosis Essential (primary) hypertension- Primary Unspecified essential hypertension PVD (peripheral vascular disease) with claudication (CMS/HCC) Peripheral vascular disease, unspecified Hyperlipidemia, mixed Mixed hyperlipidemia Symptoms involving cardiovascular system Other symptoms involving cardiovascular system Stenosis of carotid artery, unspecified laterality documented in this encounter Care Teams Geological E Logger Relationship Specialty Start Date End Date Deisi Andrews MD [address] [place] [address] [place] [address] PCP - General FAMILY PRACTICE 06/15/17 10/14/19 Asa Mcnamara MD [facility]. [facility] [address] [place] [address] [employer] CARDIOVASCULAR DISEASE 05/15/16 documented as of this encounter
--- OUTSIDE RECORDS SUMMARY | 2024-11-12 04:47 | XMS_ITS | Encounter Summary ---
Author Organization [facility] Address [address] [facility]. [place], [place] [id number] [place] [id number] Care Team Providers Care Youth Corrections Officer Name Role Phone Asa Mcnamara MD Unavailable [phone] Deisi Andrews MD Primary Care Provider [phone] Reason for Referral * Imaging (Routine) - Closed Specialty Diagnoses / Procedures Referred By Contac t Referred To Contact CARDIOLOGY Diagnoses Symptoms involving cardiovascular system PVD (peripheral vascular disease) (CMS/HCC) Essential hypertension Procedures USV POST/PRE/OTHER KENZIE DILEEP Asa Mcnamara MD [facility]. [address] [address] Phone: tel: fax: [place] [address] Phone: tel: Referral ID Status Reason Start Date Expiration Date Visits Re quested Visits Authorized [id number] Closed 01/05/2018 07/28/2018 1 1 GER SURGICAL * Imaging (Routine) - Closed Specialty Diagnoses / Procedures Referred By Contac t Referred To Contact CARDIOLOGY Diagnoses Symptoms involving cardiovascular system PVD (peripheral vascular disease) (CMS/HCC) Essential hypertension Procedures USV AORTA ILIAC IVC DUPLEX COMP Asa Mcnamara MD [facility]. [facility] [address] [place] [address] Phone: tel: fax: [facility] [place] [address] Phone: tel: Referral ID Status Reason Start Date Expiration Date Visits Re quested Visits Authorized [id number] Closed 01/05/2018 07/28/2018 1 1 GER SURGICAL Reason for Visit * Reason Comments Peripheral Vascular Disease S/P PTC dileep iliac arteries, KENZIE & AO duplex CHF Hypertension Encounter Details Date Type Department Care Team (Late st Contact Info) Description 01/05/2018 11:00 AM MANAGER SURGICAL Office Visit [facility], [facility] [place] [facility], [facility] [address], [place] [id number] Asa Mcnamara MD [facility]. [facility] [address], [place] [id number] Peripheral Vascular Disease (S/P PTC dileep iliac arteries, KENZIE & AO duplex); CHF; Hypertension Social History Tobacco Use Types Packs/Day Years Used Date Smoking Tobacco: Every Day Cigarettes Smokeless Tobacco: Never Comments:1 pk day Alcohol Use Standard Drinks/Week Comments No 0 (1 standard drink = 0.6 oz pur e alcohol) Comments Unknown Sex and Gender Information Value Date Recorded Sex Assigned at Female 12/06/2019 3:36 PM MANAGER SURGICAL Legal Sex Female 5:20 PM CDT Gender Identity Female 12/06/2019 3:36 PM MANAGER SURGICAL Sexual Orientation Straight 12/06/2019 3: 36 PM MANAGER SURGICAL Occupation Industry Job Start Date Job End Date Not on file Not on file Not on file Not on file documented as of this encounter Last Filed Vital Signs Vital Sign Reading Time Taken Comments Blood Pressure 120/82 01/05/2018 12:11 PM MANAGER SURGICAL re taken by Pulse 88 01/05/2018 10:59 AM MANAGER SURGICAL Temperature - - Respiratory Rate - - Oxygen Saturation 98% 01/05/2018 10:59 AM MANAGER SURGICAL Inhaled Oxygen Concentration - - Weight 96.2 kg (212 lb) 01/05/2018 10:59 AM MANAGER SURGICAL Height 160 cm (5' 3 ) 01/05/2018 10:59 AM MANAGER SURGICAL Body Mass Index 37.55 01/05/2018 10:59 AM MANAGER SURGICAL documented in this encounter Patient Instructions * Patient Instructions* Renan Lee - 01/05/2018 11:00 AM MANAGER SURGICAL Images from the original note were not included. Peripheral Vascular (Arterial) Disease Discharge Instructions About this topic Peripheral vascular disease is also called PVD. It is where the arteries that carry blood, oxygen, and nutrients to your legs, arms, or pelvis become narrow or blocked. PVD is caused by the buildup of fatty material in your arteries. This fatty material is called plaque. Plaque is a sticky substance found in the blood. The arteries begin to narrow and limit blood flow to your body. PVD can cause numbness and pain in the leg. If not treated, it can make walking painful. PVD may lead to more serious health problems. Treatments may lower your signs and slow how fast the disease progresses. It may also prevent otherproblems. This illness is treated with drugs and lifestyle changes. Surgery may be needed if you have a more serious case. What care is needed at home? ?? Ask your doctor what you need to do when you go home. Make sure you ask questions if you do not understand what the doctor says. This way you will know what you need to do. ?? When lying down or relaxing, raise your legs above the level of your heart. ?? Wear loose fitting pants and other clothes. This will help keep good blood flow to your legs. ?? When sitting, do not cross your legs. ?? If you smoke, ask your doctor how to quit. Quitting is very important in treatment. ?? Work with your doctor to treat other illnesses like high cholesterol or diabetes. What follow-up care is needed? ?? Your doctor may ask you to make visits to the office to check on your progress. Be sure to keep these visits. ?? There may be other tests needed to check your progress. What drugs may be needed? The doctor may order drugs to: ?? Prevent blood clots ?? Help you stop smoking ?? Lower high blood pressure ?? Lower cholesterol levels ?? Improve sugar control if you have diabetes Will physical activity be limited? Walking is good for this illness. Talk to your doctor about an exercise program for you. You may need to see a physical therapist to find the best exercises for you. What changes to diet are needed? ?? Follow a heart healthy diet. Ask the dietitian for a plan. ?? Eat foods high in fiber like fruits, vegetables, cereals, whole grains, and beans. ?? Do not eat foods high in cholesterol and saturated fats like fried foods, fatty meats, sausages,and canned meats. ?? Limit salty foods. Avoid canned, dried, and processed foods. Do not add salt to your food. Season food with herbs when you cook. ?? Limit caffeine intake. ?? Avoid beer, wine, and mixed drinks (alcohol). Ask for help to stop you from drinking. What problems could happen? ?? Problems with your heart ?? Stroke ?? Less able to get around When do I need to call the doctor? Activate the emergency medical system right away if you have signs of stroke. Call 911 in the [place] or [place]. The sooner treatment begins, the better your chances for recovery. Call for emergency help right away if you have: ?? Signs of stroke: ?? Sudden numbness or weakness of the face, arm, or leg, especially on one side of the body ?? Sudden confusion, trouble speaking or understanding ?? Sudden trouble seeing in one or both eyes ?? Sudden trouble walking, dizziness, loss of balance or coordination ?? Sudden severe headache with no known cause Call your doctor if you have: ?? Very bad pain in the leg or foot ?? Color of foot changes to blue or qureshi and becomes cold ?? Chest pain or pressure ?? Trouble breathing ?? Change in thinking clearly ?? Strength on one side of body is greater than the other or trouble speaking ?? Feelings of being very tired or weak Teach Back: Helping You Understand The Teach [...] condition. ?? I can tell you what I can do to help keep good blood flow to my legs. ?? I can tell you what I will do if I have signs of a heart attack or stroke. Where can I learn more? [place] http://www.heart.org/HEARTORG/Conditions/More/PeripheralArteryDisease/About-Lily sqrxbp-Ipzmbe-Axroilv-PAD_[facility]_301301_Article.jsp [place] [employer] http://www.heart.org/HEARTORG/Conditions/More/PeripheralArteryDisease/Prevention -mpa-Hiikeokzd-lw-PAD_UCM_301308_Article.jsp National Heart [place] ? Senior Health http://nihseniorhealth.gov/peripheralarterialdisease/whatispad/01.html National Heart Lung and Blood [place] http://www.nhlbi.nih.gov/health/health-topics/topics/pad/ Vascular Disease Foundation http://www.vdf.org/diseaseinfo/pad/ Last Reviewed Date 2016-04-08 Consumer Information Use and Disclaimer This information [...] is right for you. Copyright Copyright ?? 2017 [employer] and its affiliates and/or licensors. All rights reserved. GER SURGICAL documented in this encounter Progress Notes * Asa Mcnamara MD - 01/05/2018 11:00 AM CST Chief Complaint: Peripheral Vascular Disease (S/P PTC dileep iliac arteries, KENZIE & AO duplex); CHF; and Hypertension Recommendations/Plan: ASSESSMENT: 1. Bilateral [...] not on CPAP. ?? RECOMMENDATIONS/PLAN: Ms. Cruz is stable from a vascular standpoint. Claudication symptoms have significantly improved. Continue dual antiplatelets. She will also be maintained on cilostazol, which may lower the risk of stent restenosis. Blood pressure is well controlled. She is on moderate intensity statin. Lipid panel is significant for elevated triglycerides. I advised her to increase fish oil to 4 g daily. She is also on fenofibrate. Counseled about regular exercise and quitting smoking. Ms. [...] the current dose. Renal function is stable. Patient had sleep study last year. ? It has been my pleasure to participate in Ms. Cruz's care. Further recommendations be based on thefindings of the angiogram. Thank you for the consultation. ?? History of Present Illness: Ms. Cruz is a pleasant 57-year-old female with type 2 diabetes mellitus, hypertension and dyslipidemia and peripheral vascular disease. She she underwent endovascular intervention of bilateral iliacarteries in November 2016. She returns for her scheduled follow-up visit. Her claudication symptoms have significantly improved. She is able to walk further now. She denies any pain in her buttocks orcalves. Functional capacity remains limited. She gets out of breath with activity. No history of chest pain. Unfortunately she continues to smoke. ?? DATA REVIEWED: Arterial Doppler done 12/31/2017. KENZIE 1.1 in the right leg, 1.3 in the left leg. Aortoiliac duplex done 12/31/2017. Widely patent stents in right KALANI, left KALANI and EIA with normal velocities and triphasic waveforms Vascular angiogram performed 12/06/2017. High-grade in-stent restenosis [...] 69%. Lab Results Component Value Date/Time CHOL 177 12/31/2017 09:23 AM TRI 305 (H) 12/31/2017 09:23 AM HDL 35 (L) 12/31/2017 09:23 AM LDL 81.0 12/31/2017 09:23 AM NA 139 12/31/2017 09:23 AM K 4.2 12/31/2017 09:23 AM BUN 13 12/31/2017 09:23 AM CR 0.80 12/31/2017 09:23 AM GLU 129 (H) 12/31/2017 09:23 AM ALT 31 04/27/2017 WBC 8.1 12/07/2017 07:37 AM HGB 12.6 12/07/2017 07:37 AM PLT 158 12/07/2017 07:37 AM TSH 3.99 09/02/2016 08:13 AM ? Medications: Current Outpatient Prescriptions: ??? Fish Oil 1000 MG Cap, Take 2,000 mg by mouth 2 (two) times daily., Disp: , Rfl: ??? SYMBICORT 80-4.5 MCG/ACT inhaler, Inhale 2 puffs into the lungs 2 (two) times daily., Disp: , Rfl: ??? AEROSPAN 80 MCG/ACT Aero Soln, Inhale [...] (two) times daily., Disp: , Rfl: ??? isosorbide mononitrate ER 30 MG 24 hr tablet, Take 1 tablet (30 mg total) by mouth daily., Disp: 30 tablet, Rfl: 5 ??? losartan 100 MG tablet, Take 1 [...] (20 mEq total) by mouth daily., Disp: 90 tablet, Rfl: 0 ??? pravastatin 80 MG tablet, Take 1 tablet (80 mg total) by mouth nightly at bedtime., Disp: 30 tablet, Rfl: 4 ??? trazodone 50 MG tablet, Take 1 tablet by mouth as needed., Disp: , Rfl: Allergies Allergen Reactions ??? Haloperidol Seizure ??? Penicillins Redness ??? Resperal-Dm [Yif-Ju-Dtv-Propyl Oozykm-Lgt-Bluyjytes] Seizure ??? Triazolam Seizure Past Medical History: [...] Stent Sister 56 ??? Cancer Sister ??? Cancer Sister ??? Thyroid Sister ??? Dementia Sister ??? Thyroid Sister Family Status Relation Status ??? Mother at age 63 ??? Father at age 56 ??? Sister Alive lung,tongue ??? Brother at age 48 ??? Daughter Alive ??? Son Alive ??? Sister Alive bladder ??? Sister Alive ??? Sister Alive Review of Systems Constitutional: Negative for [...] Psychiatric/Behavioral: Negative for memory loss. Filed Vitals: 01/05/18 1059 01/05/18 1211 BP: 132/80 120/82 Pulse: 88 SpO2: 98% Weight: 96.2 kg (212 lb) Height: 5' [...] 08/12/16. Diagnoses/Impression: 1. PVD (peripheral vascular disease) USV AORTA ILIAC IVC DUPLEX COMP USV POST/PRE/OTHER KENZIE DILEEP LIPID PANEL 2. Symptoms involving cardiovascular system USV AORTA ILIAC IVC DUPLEX COMP USV POST/PRE/OTHER KENZIE DILEEP LIPID PANEL 3. Essential hypertension USV AORTA ILIAC IVC DUPLEX COMP USV POST/PRE/OTHER KENZIE DILEEP LIPID PANEL 4. Mixed hyperlipidemia LIPID PANEL 5. Stenosis of right carotid artery GER SURGICAL documented in this encounter Plan of Treatment Not on file documented as of this encounter Results * USV AORTA ILIAC IVC DUPLEX COMP (06/27/2018 9:58 AM CDT) Anatomical Region Laterality Modality NA Vascular Ultraso und 06/27/2018 8:44 AM CDT Narrative 06/27/2018 5:39 PM CDT ?[id number] DUPLEX IMAGING ? VASCULAR LAB Pat.Name: ??ARNOLD CRUZ ?Pat.ID: ?[id number] ? St.Date: ?? 06/27/2018 ? Refer.MD: ??Deisi Andrews ? Exam Time: 8:44:00 AM ? Study Type:SCOTTIE VS Aorta IVC Iliac Duplex DILEEP ??Age: ??1960,57Y ? Sex: ? FEMALE ? Sonogrphr: Liliana Mcbride, SAMRA ?Pat. Stat.:Outpatient ? History / Clinical:F/U PAD. Hx- BCIA balloon and LCIA stent 12/06/17. BCIA stents 06/2016. Lt CEA 2014. PAD. HTN. HLD. DM. CVA. tob. COPD. Prior 12/31/17- bilat <50% Procedures:Qureshi scale, Color Doppler imaging, Doppler [...] ?? Right common iliac stented, moderate plaque, triphasic with elevated PSV 235 cm/s; ?? right external iliac no evident narrowing, bi-triphasic with normal velocity. Left common iliac stented, bi-triphasic with normal velocity; ?? left external iliac no evident narrowing, bi-triphasic with normal velocity. Compared to previous exam done 12/31/17 , there is mild disease progression on the right. CONCLUSION: ? Right: ??Moderate, 50-75% stenosis (in-stent restenosis) at the common iliac. ??Mild, <50% stenosis at the external iliac. Left: ??Mild, <50% stenosis at the common iliac, external iliac. ?? Compared to previous exam done 12/31/17 , there is mild disease progression on the right. ++++++++++++++++++++++++++++++++++++ MEASUREMENTS: ++++++++++++++++++++++++++++++++++++ ?DOPPLER Supra AO ?? Supra AO PSV ?87 cm/s ? Juxta AO ?? Juxta AO PSV ? 130 cm/s ? Dist AO ?? Dist AO PSV ? 93 cm/s ? Rt Dist External Iliac ?? Dist External I ?? 172 cm/s ? Rt Mid External Iliac ?? Mid External Il ?? 165 cm/s ? Rt Prox Internal Iliac ?? Internal Iliac ?252 cm/s ? Lt Dist External Iliac ?? Lt Dist Externa ?? 150 cm/s ? Lt Mid External Iliac ?? Lt Mid External ?? 144 cm/s ? Lt Prox External Iliac ?? External Iliac ?145 cm/s ? Lt Prox Internal Iliac ?? Internal Iliac ?155 cm/s ?GRAFT Prox Stent LCIA STENT Prox Stent PSV ?? 142 cm/s ? Prox Stent RCIA STENT Prox Stent PSV ?? 235 cm/s ? Mid Stent LCIA STENT Mid Stent PSV ?151 cm/s ? Mid Stent RCIA STENT Mid Stent PSV ?223 cm/s ? Dist Stent LCIA STENT Dist Stent PSV ?? 156 cm/s ? Dist Stent RCIA STENT Dist Stent PSV ?? 177 cm/s ? Dist to Stent LCIA STENT Dist to Stent P ?? 132 cm/s ? Dist to Stent RCIA STENT Dist to Stent P ?? 192 cm/s ? Signed 06/27/2018 05:39 PM Asa Mcnamara M.D. Procedure Note Asa Mcnamara MD - 06/27/2018 [id number]-[id number]-GSI DUPLEX IMAGING VASCULAR LAB Pat.Name: ARNOLD CRUZ Mary Jo.ID: [id number] .Date: 06/27/2018 Refer.MD: Deisi Andrews Exam Time: 8:44:00 AM Study Type:SCOTTIE VS Aorta IVC Iliac Duplex DILEEP Age: 2 1960,57Y Sex: FEMALE Sonogrphr: Liliana Mcbride RDMS Pat. Stat.:Outpatient History / Clinical:F/U PAD. Hx- BCIA balloon and LCIA stent 12/06/17. BCIA stents 06/2016. Lt CEA 2015. PAD. HTN. HLD. DM. CVA. tob. COPD. Prior 12/31/17- bilat <50% Procedures:Qureshi scale, Color Doppler imaging, Doppler Spectral Analysis Race: W ++++++++++++++++++++++++++++++++++++ SUMMARY: ++++++++++++++++++++++++++++++++++++ Gail Stenosis Criteria: 50-75% = Ratio 2.0-4.0 and/or PSV 200-300; 75-99% = Ratio >4.0 and/or PSV >300 STENT Criteria: >50% = Ratio >1.5 and/or PSV >190; >80% = Ratio >3.5 and/or PSV >275 Aorta-iliac duplex: Aorta mild plaque, bi-triphasic with normal velocity. Right common iliac stented, moderate plaque, triphasic with elevated PSV 235 cm/s; right external iliac no evident narrowing, bi-triphasic with normal velocity. Left common iliac stented, bi-triphasic with normal velocity; left external iliac no evident narrowing, bi-triphasic with normal velocity. Compared to previous exam done 12/31/17 , there is mild disease progression on the right. CONCLUSION: Right: Moderate, 50-75% stenosis (in-stent restenosis) at the common iliac. Mild, <50% stenosis at the external iliac. Left: Mild, <50% stenosis at the common iliac, external iliac. Compared to previous exam done 12/31/17 , there is mild disease progression on the right. ++++++++++++++++++++++++++++++++++++ MEASUREMENTS: ++++++++++++++++++++++++++++++++++++ DOPPLER Supra AO Supra AO PSV 87 cm/s Juxta AO Juxta AO PSV 130 cm/s Dist AO Dist AO PSV 93 cm/s Rt Dist External Iliac Dist External I 172 cm/s Rt Mid External Iliac Mid External Il 165 cm/s Rt Prox Internal Iliac Internal Iliac 252 cm/s Lt Dist External Iliac Lt Dist Externa 150 cm/s Lt Mid External Iliac Lt Mid External 144 cm/s Lt Prox External Iliac External Iliac 145 cm/s Lt Prox Internal Iliac Internal Iliac 155 cm/s GRAFT Prox Stent LCIA STENT Prox Stent PSV 142 cm/s Prox Stent RCIA STENT Prox Stent PSV 235 cm/s Mid Stent LCIA STENT Mid Stent PSV 151 cm/s Mid Stent RCIA STENT Mid Stent PSV 223 cm/s Dist Stent LCIA STENT Dist Stent PSV 156 cm/s Dist Stent RCIA STENT Dist Stent PSV 177 cm/s Dist to Stent LCIA STENT Dist to Stent P 132 cm/s Dist to Stent RCIA STENT Dist to Stent P 192 cm/s Signed 06/27/2018 05:39 PM Asa Mcnamara M.D. us Asa Mcnamara MD VASC Final Result * USV POST/PRE/OTHER KENZIE DILEEP (06/27/2018 9:57 AM CDT) Anatomical Region Laterality Modality Extremity Vascular Ultraso und 06/27/2018 9:23 AM CDT Narrative 06/27/2018 12:07 PM CDT ?ARTERIAL DOPPLER - KENZIE ?BILATERAL LOWER EXTREMITY ? VASCULAR LAB ? Pat.Name: ??GELSO, ARNOLD ?Pat.ID: ?[id number] ? St.Date: ?? 06/27/2018 ? Refer.: ??Deisi Andrews ? Exam Time: 9:23:00 AM ? Study Type:SCOTTIE VS Arterial Doppler KENZIE LTD ??Age: ??1960,57Y ? Sex: ? FEMALE ? Sonogrphr: Liliana Mcbride RDMS ?Pat. Stat.:Outpatient ? History / Clinical:Pain when walking < 1/2 block. Stops with rest. F/U PAD. Hx- BCIA balloon and LCIA stent 12/06/17. BCIA stents 06/2016. Lt CEA 2014. PAD. HTN. HLD. DM. CVA. tob. COPD. Prior 12/31/17- Rt 1.11, Lt 1.27 Procedures:Doppler waveforms, Digit PPG, Systolic Pressures w/KENZIE [...] ??Posterior Tibial triphasic, medium amplitude with KENZIE 1.08 ; ??DP/Anterior Tibial triphasic, medium amplitude with KENZIE 1.09 . Digit flow by PPG is medium amplitude with DBI 0.908 . Left leg: ??Common Femoral waveform is not assessed; ??Popliteal not assessed; ??Posterior Tibial triphasic, medium amplitude with KENZIE 1.11 ; ??DP/Anterior Tibial triphasic, medium amplitude with KENZIE 0.987 . Digit flow by PPG is medium amplitude with DBI 0.789 . Post rapid pedal dorsiflexion stress test, right KENZIE decreases 0.05; left KENZIE decreases 0.04. ??Patient maintained exercise for 1:56 minutes, and experienced left thigh pain, bilateral calf pain. ?? Compared to previous exam done 12/31/17 , there is no significant change. CONCLUSION: ?? KENZIE right ??1.1 with triphasic waveforms, with toe index 0.91. KENZIE left 1.1 with triphasic waveforms, with toe index 0.79. No significant peripheral arterial disease at rest. ?? Exercise stress test bilateral is negative, indicating no flow significant stenosis. ++++++++++++++++++++++++++++++++++++ FINDINGS: ++++++++++++++++++++++++++++++++++++ TV: ? The septal leaflet of the tricuspid is displaced toward the ?apex, ??consistent with Ebstein's anomaly. ++++++++++++++++++++++++++++++++++++ MEASUREMENTS: ++++++++++++++++++++++++++++++++++++ ?DOPPLER Left Dist HAT TRIMMER ?? Dist HAT TRIMMER PSV ?66.8 cm/s ? Left Dist BHUMI ?? Dist BHUMI PSV ?59.1 cm/s ? Right Dist HAT TRIMMER ?? Dist HAT TRIMMER PSV ?66.6 cm/s ? Right Dist BHUMI ?? Dist BHUMI PSV ?71.9 cm/s ?PRESSURES Right Brachial ?? Brach P ?152 mmHg ? Right Ankle DP ?? AnkleDP P ?166 mmHg ? Right Ankle PT ?? AnklePT P ?164 mmHg ? Right Great Toe ?? GreatToe P ? 138 mmHg ? Right KENZIE PT ?? KENZIE PT ?1.08 ? Right KENZIE DP ?? KENZIE DP ?1.09 ? Right TBI ?? TBI ?0.908 ? Left Brachial ?? Brach P ?152 mmHg ? Left Ankle DP ?? AnkleDP P ?150 mmHg ? Left Ankle PT ?? AnklePT P ?168 mmHg ? Left Great Toe ?? GreatToe P ? 120 mmHg ? Left KENZIE PT ?? KENZIE PT ?1.11 ? Left KENZIE DP ?? KENZIE DP ? 0.987 ? Left TBI ?? TBI ?0.789 ?STRESS Minutes ?? Minutes ?2 min ? 1 Minute ?? 1 Min ARM ?152 mmHg ?1 Min KENZIE ? 1.04 ? 1 Min Ankle ?158 mmHg ?1 Min LT KENZIE ?1.07 ? 1 Min LT Ankle ?? 162 mmHg ? Signed 06/27/2018 12:07:00 PM Asa Mcnamara M.D. Procedure Note Asa Mcnamara MD - 06/27/2018 ARTERIAL DOPPLER - KENZIE BILATERAL LOWER EXTREMITY VASCULAR LAB Pat.Name: ARNOLD CRUZ Pat.ID: [id number] St.Date: 06/27/2018 Refer.MD: Deisi Andrews Exam Time: 9:23:00 AM Study Type:SCOTTIE VS Arterial Doppler KENZIE LTD Age: 2 1960,57Y Sex: FEMALE Sonogrphr: Liliana Mcbried RDMS Pat. Stat.:Outpatient History / Clinical:Pain when walking < 1/2 block. Stops with rest. F/U PAD. Hx- BCIA balloon and LCIA stent 12/06/17. BCIA stents 06/2016. Lt CEA 2014. PAD. HTN. HLD. DM. CVA. tob. COPD. Prior 12/31/17- Rt 1.11, Lt 1.27 Procedures:Doppler waveforms, Digit PPG, Systolic Pressures w/KENZIE [...] Posterior Tibial triphasic, medium amplitude with KENZIE 1.08 ; DP/Anterior Tibial triphasic, medium amplitude with KENZIE 1.09 . Digit flow by PPG is medium amplitude with DBI 0.908 . Left leg: Common Femoral waveform is not assessed; Popliteal not assessed; Posterior Tibial triphasic, medium amplitude with KENZIE 1.11 ; DP/Anterior Tibial triphasic, medium amplitude with KENZIE 0.987 . Digit flow by PPG is medium amplitude with DBI 0.789 . Post rapid pedal dorsiflexion stress test, right KENZIE decreases 0.05; left KENZIE decreases 0.04. Patient maintained exercise for 1:56 minutes, and experienced left thigh pain, bilateral calf pain. Compared to previous exam done 12/31/17 , there is no significant change. CONCLUSION: KENZIE right 1.1 with triphasic waveforms, with toe index 0.91. KENZIE left 1.1 with triphasic waveforms, with toe index 0.79. No significant peripheral arterial disease at rest. Exercise stress test bilateral is negative, indicating no flow significant stenosis. ++++++++++++++++++++++++++++++++++++ FINDINGS: ++++++++++++++++++++++++++++++++++++ TV: The septal leaflet of the tricuspid is displaced toward the apex, consistent with Ebstein's anomaly. ++++++++++++++++++++++++++++++++++++ MEASUREMENTS: ++++++++++++++++++++++++++++++++++++ DOPPLER Left Dist HAT TRIMMER Dist HAT TRIMMER PSV 66.8 cm/s Left Dist BHUMI Dist BHUMI PSV 59.1 cm/s Right Dist HAT TRIMMER Dist HAT TRIMMER PSV 66.6 cm/s Right Dist BHUMI Dist BHUMI PSV 71.9 cm/s PRESSURES Right Brachial Brach P 152 mmHg Right Ankle DP AnkleDP P 166 mmHg Right Ankle PT AnklePT P 164 mmHg Right Great Toe GreatToe P 138 mmHg Right KENZIE PT KENZIE PT 1.08 Right KENZIE DP KENZIE DP 1.09 Right TBI TBI 0.908 Left Brachial Brach P 152 mmHg Left Ankle DP AnkleDP P 150 mmHg Left Ankle PT AnklePT P 168 mmHg Left Great Toe GreatToe P 120 mmHg Left KENZIE PT KENZIE PT 1.11 Left KENZIE DP KENZIE DP 0.987 Left TBI TBI 0.789 STRESS Minutes Minutes 2 min 1 Minute 1 Min ARM 152 mmHg 1 Min KENZIE 1.04 1 Min Ankle 158 mmHg 1 Min LT KENZIE 1.07 1 Min LT Ankle 162 mmHg Signed 06/27/2018 12:07:00 PM Asa Mcnamara M.D. Asa Mcnamara MD [facility] Final Result * (ABNORMAL) LIPID PANEL (06/27/2018 8:03 AM CDT) CHOLESTEROL 221(H) <200 MG/DL 06/27/2018 9:23 AM CDT [facility] TRIGLYCERIDES 548(H) <150 MG/DL 06/27/2018 9:23 AM T [facility] Comment:REFLEXED DIRECT LDL DUE TO TRIG >400. HDL 30(L) >40.0 MG/DL 06/27/2018 9:23 AM T [facility] LDL (CALCULATED) NOT CALCULATED <100 MG/DL 06/27/2018 9:23 AM T [facility] Comment:TRIGLYCERIDE >400 IN VALIDATES FRACTIONATION. NON HDL CHOLESTEROL 191(H) <130 MG/DL 06/27/2018 9:23 AM [facility] CHOL/HDL RATIO 7.4(H) 0.0 - 4.5 06/27/2018 9:23 AM [facility] VLDL CALCULATION NOT CALCULATED 5 - 55 MG/DL 06/27/2018 9:23 AM [facility] Comment:TRIGLYCERIDE >400 IN VALIDATES FRACTIONATION. LIPID INTERPRETATION 06/27/2018 9:23 AM [facility] Comment: NIH CONCENSUS REPORT RECOMMENDATIONS: ?ADULT ?CHILD ??LOW RISK: ?CHOLESTEROL ? <200 ? <170 ?TRIGLYCERIDE ?<150 ?--- ?HDL ? >=60 ?--- ?LDL ? <100 ? <110 ??BORDERLINE: ?CHOLESTEROL ? 200-239 ?? 170-199 ?TRIGLYCERIDE ?150-199 ? --- ?HDL ?40-59 ?--- ?LDL ? 100-159 ?? 110-129 ??HIGH RISK: ?CHOLESTEROL ? >=240 ?>=200 ?TRIGLYCERIDE ?>=200 ? --- ?HDL ?<40 ?--- ?LDL ? >=160 ?>=130 06/27/2018 8:03 AM CDT Asa Mcnamara MD LABORATORY Final Result [facility] [address] [place] [address], documented in this encounter Visit Diagnoses Diagnosis PVD (peripheral vascular disease) (CMS/HCC)- Primary Peripheral vascular disease, unspecified Symptoms involving cardiovascular system Other symptoms involving cardiovascular system Essential hypertension Unspecified essential hypertension Mixed hyperlipidemia Stenosis of right carotid artery Occlusion and stenosis of carotid artery without mention of cerebral infarction Symptoms involving cardiovascular system Other symptoms involving cardiovascular system PVD (peripheral vascular disease) (CMS/HCC) Peripheral vascular disease, unspecified Essential hypertension Unspecified essential hypertension Carotid stenosis Occlusion and stenosis of carotid artery without mention of cerebral infarction documented in this encounter Care Teams Youth Corrections Officer Relationship Specialty Start Date End Date Deisi Andrews MD [address] [place] [address] [place] [address] PCP - General FAMILY PRACTICE 06/15/17 10/14/19 Asa Mcnamara MD [address] [place] [address] [place] Food Processing Scientist CARDIOVASCULAR DISEASE 05/15/16 documented as of this encounter
--- OUTSIDE RECORDS SUMMARY | 2024-11-12 04:47 | XMS_ITS | Encounter Summary ---
Author Organization [facility] Address [facility]6 [facility] [place], [place] [address] [place] [address] Care Team Providers Care Engineering Vice President Name Role Phone Asa Mcnamara MD Unavailable [phone] Deisi Andrews MD Primary Care Provider [phone] Encounter Details Date Type Department Care Team (Late st Contact Info) Description 06/23/2017 Abstract [place] [address] Asa Mcnamara MD Three [facility]. [facility] [address] [place] [address] Social History Tobacco Use Types Packs/Day Years Used Date Smoking Tobacco: Every Day Cigarettes Smokeless Tobacco: Never Comments:2 cig a day Alcohol Use Standard Drinks/Week Comments No 0 (1 standard drink = 0.6 oz pur e alcohol) Comments Unknown Sex and Gender Information Value Date Recorded Sex Assigned at Female 12/06/2019 3:36 PM MAGAZINE WORKER Legal Sex Female 5:20 PM CDT Gender Identity Female 12/06/2019 3:36 PM MAGAZINE WORKER Sexual Orientation Straight 12/06/2019 3: 36 PM MAGAZINE WORKER Occupation Industry Job Start Date Job [...] CDT) GLUCOSE 166(H) 70 - 99 mg/dL 06/23/2017 2:38 PM CDT [facility] BUN 12 8 - 23 mg/dL 06/23/2017 2:38 PM CDT [facility] CREATININE S/P/B 0.68 0.60 - 1.10 mg/dL 06/23/2017 2:38 PM CDT [facility] SODIUM S/P/B 143 136 - 145 mmol/L 06/23/2017 2:38 PM CDT [facility] POTASSIUM S/P/B 3.4(L) 3.5 - 5.1 mmol/L 06/23/2017 2:38 PM CDT [facility] CHLORIDE S/P/B 100 98 - 107 mmol/L 06/23/2017 2:38 PM CDT [facility] CO2 28 22 - 29 mmol/L 06/23/2017 2:38 PM CDT [facility] CALCIUM S/P/B 9.2 8.6 - 10.2 mg/dL 06/23/2017 2:38 PM CDT [facility] ANION GAP 18 8 - 20 06/23/2017 2:38 PM CDT [facility] EGFR NON-AFR. AMER. >60 >60 mL/min/1.7 3m'2 06/23/2017 2:38 PM CDT [facility] EGFR AFR. AMER. >60 >60 mL/min/1.7 3m'2 06/23/2017 2:38 PM CDT [facility] Comment: NOTE: eGFR is not calculated for patients <18 years of age. This is an estimated GFR (CKD EPI) and should not be used for calculating drug doses. 06/23/2017 1:55 PM CDT 06/23/2017 2:04 PM CDT us Generic Conversion Md [facility] Final R esult Performing Organization Address City/State/[facility] Co de Phone Number [facility] [address] [place] [address], documented in this encounter Visit Diagnoses Diagnosis Essential (primary) hypertension Unspecified essential hypertension documented in this encounter Care Teams Engineering Vice President Relationship Specialty Start Date End Date Deisi Andrews MD [address] [place] [address] [place] [address] PCP - General FAMILY PRACTICE 06/15/17 10/14/19 Asa Mcnamara MD [facility]. [facility] [address] [place] [address] [place] Mate Fourth CARDIOVASCULAR DISEASE 05/15/16 documented as of this encounter
--- OUTSIDE RECORDS SUMMARY | 2024-11-12 04:47 | XMS_ITS | Encounter Summary ---
Author Organization [facility] Address [facility]6 [place] [address] [place] [address] Care Team Providers Care Project Lead Name Role Phone Asa Mcnamara MD Unavailable [phone] Deisi Andrews MD Primary Care Provider [phone] Reason for Visit * Reason Onset Date Comments Abstract Labs 11/21/2018 Encounter Details Date Type Department Care Team (Late st Contact Info) Description 11/21/2018 Telephone [facility] at [facility] [address] [place] [address] Hari Rehman, KATHERINE [facility] [address] [place] [address] Abstract Labs Social History Tobacco Use Types Packs/Day Years Used Date Smoking Tobacco: Every Day Cigarettes Smokeless Tobacco: Never Comments:1 pk day Alcohol Use Standard Drinks/Week Comments No 0 (1 standard drink = 0.6 oz pur e alcohol) Comments Unknown Sex and Gender Information Value Date Recorded Sex Assigned at Female 12/06/2019 3:36 PM STAGE SET UP WORKER Legal Sex Female 5:20 PM CDT Gender Identity Female 12/06/2019 3:36 PM STAGE SET UP WORKER Sexual Orientation Straight 12/06/2019 3: 36 PM STAGE SET UP WORKER Occupation Industry Job Start Date Job End Date Not on file Not on file Not on file Not on file documented as of this encounter Progress Notes * Hari Rehman NP - 11/21/2018 2:16 PM CST Called patient with reminder to have labs repeated to recheck cholesterol. She verbalized understanding E SET UP WORKER documented in this encounter Plan of Treatment Not on file documented as of this encounter Visit Diagnoses Not on filedocumented in this encounter Care Teams Project Lead Relationship Specialty Start Date End Date Deisi Andrews MD [address] [place] [address] [place] [address] PCP - General FAMILY PRACTICE 06/15/17 10/14/19 Asa Mcnamara MD [facility]. [facility] [address] [place] [address] [place] Burglar Alarm Mechanic CARDIOVASCULAR DISEASE 05/15/16 documented as of this encounter
--- OUTSIDE RECORDS SUMMARY | 2024-11-12 04:47 | XMS_ITS | Encounter Summary ---
Author Organization [facility] - [facility] Address [facility]6 [facility] [place], [place] [address] [place] [address] Care Team Providers Care Timers Inspector Name Role Phone Asa Mcnamara MD Unavailable [phone] Heber Adorno MD Primary Care Provider Unavailable Deisi Andrews MD Primary Care Provider [phone] Encounter Details Date Type Department Care Team (Latest Contact Info) Description 05/03/2017 Abstract [facility] Medical Group Social History Tobacco Use Types Packs/Day Years Used Date Smoking Tobacco: Every Day Cigarettes Smokeless Tobacco: Never Alcohol Use Standard Drinks/Week Comments No 0 (1 standard drink = 0.6 oz pur e alcohol) Comments Unknown Sex and Gender Information Value Date Recorded Sex Assigned at Female 12/06/2019 3:36 PM DIRECTOR ADULT Legal Sex Female 5:20 PM CDT Gender Identity Female 12/06/2019 3:36 PM DIRECTOR ADULT Sexual Orientation Straight 12/06/2019 3: 36 PM DIRECTOR ADULT Occupation Industry Job Start Date Job End Date Not on file Not on file Not on file Not on file documented as of this encounter Plan of Treatment Not on file documented as of this encounter Visit Diagnoses Not on filedocumented in this encounter Care Teams Timers Inspector Relationship Specialty Start Date End Date Heber Adorno MD PCP - General 03/11/17 06/14/17 Deisi Andrews MD [address] [place] [address] [place] [address] PCP - General FAMILY PRACTICE 06/15/17 10/14/19 Asa Mcnamara MD [id number] [place] [address] [place] Event Specialist Food Demonstrator CARDIOVASCULAR DISEASE 05/15/16 documented as of this encounter
--- OUTSIDE RECORDS SUMMARY | 2024-11-12 04:47 | XMS_ITS | Encounter Summary ---
Author Organization [facility] - [facility] Address [facility]6 [facility] [place]. [place], [place] [address] [place] [address] Care Team Providers Care Outside Energy Sales Representatives Name Role Phone Asa Mcnamara MD Unavailable [phone] Deisi Andrews MD Primary Care Provider [phone] Encounter Details Date Type Department Care Team (Latest Contact Info) Description 09/03/2017 Abstract [facility] Medical Group Social History Tobacco Use Types Packs/Day Years Used Date Smoking Tobacco: Every Day Cigarettes Smokeless Tobacco: Never Comments:2 cig a day Alcohol Use Standard Drinks/Week Comments No 0 (1 standard drink = 0.6 oz pur e alcohol) Comments Unknown Sex and Gender Information Value Date Recorded Sex Assigned at Female 12/06/2019 3:36 PM COMMUNICATIONS STATION MANAGER Legal Sex Female 5:20 PM CDT Gender Identity Female 12/06/2019 3:36 PM COMMUNICATIONS STATION MANAGER Sexual Orientation Straight 12/06/2019 3: 36 PM COMMUNICATIONS STATION MANAGER Occupation Industry Job Start Date Job End Date Not on file Not on file Not on file Not on file documented as of this encounter Plan of Treatment Not on file documented as of this encounter Visit Diagnoses Not on filedocumented in this encounter Care Teams Outside Energy Sales Representatives Relationship Specialty Start Date End Date Deisi Andrews MD [address] [place] [address] [place] [address] PCP - General FAMILY PRACTICE 06/15/17 10/14/19 Asa Mcnamara MD Three [facility]. [facility] [address] [place] [address] [place] Outdoor Advertising Leasing Agent CARDIOVASCULAR DISEASE 05/15/16 documented as of this encounter
--- OUTSIDE RECORDS SUMMARY | 2024-11-12 04:47 | XMS_ITS | Encounter Summary ---
Author Organization [facility] Address [address] [place] [address] [place] [address] Care Team Providers Care Worksite Wellness Practitioner Name Role Phone Asa Mcnamara MD Unavailable [phone] Deisi Andrews MD Primary Care Provider [phone] Reason for Visit * Reason Onset Date Comments Refill Request 03/18/2018 Nitroglycerin SL Encounter Details Date Type Department Care Team (Late st Contact Info) Description 03/18/2018 Telephone [facility] at [facility] [address] [place] [address] Asa Mcnamara MD [facility]. [facility] [address] [place], [place] [id number] Refill Request (Nitroglycerin SL) Social History Tobacco Use Types Packs/Day Years Used Date Smoking Tobacco: Every Day Cigarettes Smokeless Tobacco: Never Comments:1 pk day Alcohol Use Standard Drinks/Week Comments No 0 (1 standard drink = 0.6 oz pur e alcohol) Comments Unknown Sex and Gender Information Value Date Recorded Sex Assigned at Female 12/06/2019 3:36 PM CASH CONTROLLER Legal Sex Female 5:20 PM CDT Gender Identity Female 12/06/2019 3:36 PM CASH CONTROLLER Sexual Orientation Straight 12/06/2019 3: 36 PM CASH CONTROLLER Occupation Industry Job Start Date Job End Date Not on file Not on file Not on file Not on file documented as of this encounter Plan of Treatment Not on file documented as of this encounter Visit Diagnoses Not on filedocumented in this encounter Care Teams Worksite Wellness Practitioner Relationship Specialty Start Date End Date Deisi Andrews MD [address] [place] [address] [place] [address] PCP - General FAMILY PRACTICE 06/15/17 10/14/19 Asa Mcnamara MD [facility]. [facility] [address] [place] [address] [place] Chainsaw Mechanic CARDIOVASCULAR DISEASE 05/15/16 documented as of this encounter
--- OUTSIDE RECORDS SUMMARY | 2024-11-12 04:47 | XMS_ITS | Encounter Summary ---
Author Organization [facility] - [facility] Address [facility]6 [facility]. [place], [place] [address] [place] [address] Care Team Providers Care Packaging Machine Supplies Distributor Name Role Phone Asa Mcnamara MD Unavailable [phone] Deisi Andrews MD Primary Care Provider [phone] Encounter Details Date Type Department Care Team (Latest Contact Info) Description 09/20/2018 Scan [facility] Medical Group , Heber Trinidad MD Social History Tobacco Use Types Packs/Day Years Used Date Smoking Tobacco: Every Day Cigarettes Smokeless Tobacco: Never Comments:1 pk day Alcohol Use Standard Drinks/Week Comments No 0 (1 standard drink = 0.6 oz pur e alcohol) Comments Unknown Sex and Gender Information Value Date Recorded Sex Assigned at Female 12/06/2019 3:36 PM SUPERVISOR SAWMILL Legal Sex Female 5:20 PM CDT Gender Identity Female 12/06/2019 3:36 PM SUPERVISOR SAWMILL Sexual Orientation Straight 12/06/2019 3: 36 PM SUPERVISOR SAWMILL Occupation Industry Job Start Date Job End Date Not on file Not on file Not on file Not on file documented as of this encounter Plan of Treatment Not on file documented as of this encounter Visit Diagnoses Not on filedocumented in this encounter Care Teams Packaging Machine Supplies Distributor Relationship Specialty Start Date End Date Deisi Andrews MD [address] [place] [address] [place] [address] PCP - General FAMILY PRACTICE 06/15/17 10/14/19 Asa Mcnamara MD Three [facility]. [facility] [address] [place] [address] [place] Central Service Technician CARDIOVASCULAR DISEASE 05/15/16 documented as of this encounter
--- OUTSIDE RECORDS SUMMARY | 2024-11-12 04:47 | XMS_ITS | Encounter Summary ---
Author Organization [facility] Address [address] [facility] [place] [address] [place] [address] Care Team Providers Care Manager Wealth Management Name Role Phone Asa Mcnamara MD Unavailable [phone] , Heber Trinidad MD Primary Care Provider Unavailable Reason for Referral * Diagnostic Lab (Routine) - Closed Specialty Diagnoses / Procedures Referred By Contsamra t Referred To Contact CARDIOLOGY Diagnoses Palpitations Procedures HOLTER MONITOR 48 HR REC ([address]) Asa Mcnamara MD [address] [address] Phone: tel: fax: [facility] [address] [place] [address] Phone: tel: fax: Referral ID Status Reason Start Date Expiration Date Visits Re quested Visits Authorized [id number] Closed 06/07/2017 07/15/2017 1 1 Reason for Visit * Reason Comments Peripheral Vascular Disease 4 wk follow up Edema Encounter Details Date Type Department Care Team ([facility] Contact Info) Description 06/07/2017 11:00 AM CDT Office Visit [facility] [address] [place] [address] Asa Mcnamara MD Three [facility]. [address] [id number] Peripheral Vascular Disease (4 wk follow up); Edema Social History Tobacco Use Types Packs/Day Years Used Date Smoking Tobacco: Every Day Cigarettes Smokeless Tobacco: Never Comments:2 cig a day Alcohol Use Standard Drinks/Week Comments No 0 (1 standard drink = 0.6 oz pur e alcohol) Comments Unknown Sex and Gender Information Value Date Recorded Sex Assigned at Female 12/06/2019 3:36 PM ELECTRO MECHANICAL SOLAR TECHNICIAN Legal Sex Female 5:20 PM CDT Gender Identity Female 12/06/2019 3:36 PM ELECTRO MECHANICAL SOLAR TECHNICIAN Sexual Orientation Straight 12/06/2019 3: 36 PM ELECTRO MECHANICAL SOLAR TECHNICIAN Occupation Industry Job Start Date Job End Date Not on file Not on file Not on file Not on file documented as of this encounter Last Filed Vital Signs Vital Sign Reading Time Taken Comments Blood Pressure 112/80 06/07/2017 11:34 AM CDT Pulse 96 06/07/2017 11:34 AM CDT Temperature - - Respiratory Rate - - Oxygen Saturation 98% 06/07/2017 11:34 AM CDT Inhaled Oxygen Concentration - - Weight 103.9 kg (229 lb) 06/07/2017 11:34 AM CDT Height 160 cm (5' 3 ) 06/07/2017 11:34 AM CDT Body Mass Index 40.57 06/07/2017 11:34 AM CDT documented in this encounter Patient Instructions * Patient Instructions* Porsha David - 06/07/2017 11:00 AM CDT Images from the original note were not included. Index Irish All??languages Related??topics High Blood Pressure: Essential Hypertension [...] risk for high blood pressure. Developed by [employer]. Adult Advisor 2017.1 published by [employer]. Last modified: 2016-03-02 Last reviewed: 2016-02-28 This content is reviewed periodically and is subject to change as new health information becomes available. The information is intended to inform and educate and is not a replacement for medical evaluation, advice, diagnosis or treatment by a healthcare professional. References Adult Advisor 2017.1 Index Copyright ?? 2017 [employer], a division of [employer]. All rights reserved. documented in this encounter Progress Notes * FELISA Pretty - 06/25/2017 3:44 PM CDT Left brief message on machine. No significant arrhythmia. Keep upcoming appt * Asa Mcnamara MD - 06/07/2017 11:00 AM CDT Chief Complaint: Peripheral Vascular Disease (4 wk follow up) and Edema Recommendations/Plan: ASSESSMENT: 1. Bilateral lower extremity peripheral [...] possible surgery in the future. ? RECOMMENDATIONS/PLAN: Dyspnea on exertion is likely multifactorial. She is morbidly obese, has long-standing history of smoking and likely has obstructive sleep apnea.. She also complains of swellingin the legs off and on. Advised compliance with medications. I will start her on furosemide 40 mg daily with potassium supplements. Recheck basic metabolic panel in 2 weeks. I have advised her to usecompression stockings. From a peripheral vascular disease standpoint, she complains of discomfort in her legs with walking. Recent angiogram showed widely patent stent and bilateral iliac arteries and no significant disease otherwise. She is tolerating low-dose cilostazol, I will increase the dose 200 mg twice daily. Sheneeds aggressive risk factor modification. Blood pressure is well controlled. She is on moderate intensity statin. Lipid panel has significantly improved. She complains of palpitations. Given her body habitus, and likely undiagnosed sleep apnea, there isconcern for paroxysmal arrhythmias. I will order a Holter monitor for further evaluation. Chest pain is very atypical, likely nonischemic. Stress test done in 2016 showed normal myocardial perfusion. Ms. Zaidi will undergo knee surgery in the near future. She is not reporting significant ischemic symptoms. Functional capacity is limited.??She will be at low risk of perioperative cardiacevents. No further cardiac testing is indicated right to surgery. Ms. Zaidi had left carotid endarterectomy in 2014. Follow-up duplex scan shows no significant stenosis in either carotid artery. We will continue with close clinical follow-up and repeat Doppler studies periodically. ?? History is suggestive of sleep apnea. She is scheduled to get an outpatient sleep study. sleep study. ? It has been my pleasure to participate in Ms. Zaidi's care. She will return for a follow-up visit in 4 weeks, earlier if needed. Thank you for the consultation. ??History of Present Illness: Ms. Zaidi is a pleasant 56-year-old female with type 2 diabetes mellitus, hypertension and dyslipidemia and peripheral vascular disease. She was seen earlier this month. She was complaining of dyspnea on exertion and swelling in the legs. I started her on low-dose furosemide. She returns today for her scheduled office visit. Unfortunately, she is taking furosemide only 4 times in the last month. She stopped taking the medicine because her swelling got better. She thinks, the furosemide was helping her breathing as well. Functional capacity remains limited. She is not able to walk more than 50-70 feet. She has to stop because of shortness of breath. She also complains of pain in her legs with walking. She continues to have chest pain off and on. Description is very atypical. She complains of a stabbing pain on the left side, that only lasts for a brief second. Not related to exertion. She continues to smoke, but is now down to a few cigarettes a day. ?? DATA REVIEWED: EKG [...] Normal myocardial perfusion, EF 69%. Labs done 06/01/2017. Sodium 141, potassium 3.7, BUN 14, creatinine 0.94. ? Medications: Current Outpatient Prescriptions: ??? cilostazol 100 MG tablet, Take 1 [...] Haloperidol Seizure ??? Penicillins Redness ??? Resperal-Dm [Dhx-Ex-Mot-Propyl Lnvvym-Gvk-Vrovqaxhz] Seizure ??? Triazolam Seizure Past Medical History: [...] at age 49 Review of Systems Constitutional: Positive for malaise/fatigue. Negative for weight loss. HENT: Negative for hearing loss. Eyes: Negative for blurred vision and double vision. Respiratory: Positive for cough and shortness of breath. Negative for hemoptysis and wheezing. Cardiovascular: Positive for chest pain. Negative for palpitations. Gastrointestinal: Negative for blood in stool and melena. Genitourinary: Negative for dysuria. Musculoskeletal: Positive for joint pain and myalgias. Skin: Negative for rash. Neurological: Positive for tingling, weakness and headaches. Negative for sensory change and focal weakness. Endo/Heme/Allergies: Positive for polydipsia. Does not bruise/bleed easily. Filed Vitals: 06/07/17 1134 BP: 112/80 Pulse: 96 SpO2: 98% Weight: 103.9 kg (229 lb) Height: 5' 3 (1.6 m) Physical [...] for this visit on 08/12/16. Diagnoses/Impression: 1. Lower leg edema 2. PVD (peripheral vascular disease) with claudication 3. Palpitations HOLTER MONITOR 48 HR REC 4. Essential hypertension BASIC METABOLIC PANEL 5. Hyperlipidemia, mixed documented in this encounter Plan of Treatment Scheduled Orders Name Type Priority Associated Diagnoses Orde r Schedule BASIC METABOLIC PANEL Lab Routine Essential hypertension Expected: 06/21/2017, Expires: 06/07/2018 documented as of this encounter Procedures Procedure Name Priority Date/Time Associated Diagnosis Comments HOLTER MONITOR 48 HR REC Routine 06/17/2017 Palpitations documented in this encounter Results * HOLTER MONITOR 48 HR REC (17262) (06/17/2017) Asa Mcnamara MD HOLTER Final Result documented in this encounter Visit Diagnoses Diagnosis Lower leg edema- Primary Edema PVD (peripheral vascular disease) with claudication (CMS/HCC) Peripheral vascular disease, unspecified Palpitations Essential hypertension Unspecified essential hypertension Hyperlipidemia, mixed Mixed hyperlipidemia documented in this encounter Care Teams Manager Wealth Management Relationship Specialty Start Date End Date , Generic Conversion, PCP - General 03/11/17 06/14/17 Asa Mcnamara MD [facility]. [facility] [address] [place] [address] [place] Wooden Frame Builder CARDIOVASCULAR DISEASE 05/15/16 documented as of this encounter
--- OUTSIDE RECORDS SUMMARY | 2024-11-12 04:47 | XMS_ITS | Encounter Summary ---
Author Organization [facility] Address [facility]. [place], [place] [address] [place] [address] Care Team Providers Care Manager Garden Name Role Phone Asa Mcnamara MD Unavailable [phone] Deisi Andrews MD Primary Care Provider [phone] Neva Holden MD Primary Care Provider [phone] Deisi Andrews MD Primary Care Provider [phone] Neva Holden MD Primary Care Provider [phone] Encounter Details Date Type Department Care Team (Late st Contact Info) Description 11/25/2018 Abstract [facility] at [address] [address] Rafael Thakur MA Social History Tobacco Use Types Packs/Day Years Used Date Smoking Tobacco: Every Day Cigarettes Smokeless Tobacco: Never Comments:1 pk day Alcohol Use Standard Drinks/Week Comments No 0 (1 standard drink = 0.6 oz pur e alcohol) Comments Unknown Sex and Gender Information Value Date Recorded Sex Assigned at Female 12/06/2019 3:36 PM AIRPORT ENGINEER Legal Sex Female 5:20 PM CDT Gender Identity Female 12/06/2019 3:36 PM AIRPORT ENGINEER Sexual Orientation Straight 12/06/2019 3: 36 PM AIRPORT ENGINEER Occupation Industry Job Start Date Job End Date Not on file Not on file Not on file Not on file documented as of this encounter Plan of Treatment Not on file documented as of this encounter Procedures Procedure Name Priority Date/Time Associated Diagnosis Comments LIPID PANEL Routine 11/24/2018 documented in this encounter Results * LIPID PANEL (11/24/2018) CHOLESTEROL 157 HDL 33 TRIGLYCERIDES 324 NON HDL CHOLESTEROL 124 LDL (CALCULATED) 85 11/24/2018 us Doc [facility] Abstract LABORATORY Final Result documented in this encounter Visit Diagnoses Not on filedocumented in this encounter Care Teams Manager Garden Relationship Specialty Start Date End Date Deisi Andrews MD [address] [place] [address] PCP - General FAMILY PRACTICE 06/15/17 10/14/19 Neva Holden MD [facility] [address] [place] [address] PCP - General FAMILY PRACTICE 10/15/19 12/05/19 Deisi Andrews MD [address] [place] [address] PCP - General FAMILY PRACTICE 12/06/19 02/13/20 Neva Holden MD [facility] [address] [place] [address] PCP - General FAMILY PRACTICE 02/14/20 Asa Mcnamara MD [facility]. [facility] [address] [place] [address] Stephen Nursing Care Partner CARDIOVASCULAR DISEASE 05/15/16 documented as of this encounter
--- OUTSIDE RECORDS SUMMARY | 2024-11-12 04:47 | XMS_ITS | Encounter Summary ---
Author Organization [facility] Address [facility]6 [facility] [place] [address] [place] [address] Care Team Providers Care Textile Dyer Name Role Phone Asa Mcnamara MD Unavailable [phone] Deisi Andrews MD Primary Care Provider [phone] Reason for Visit * Reason Onset Date Comments Lab Results 06/23/2017 Encounter Details Date Type Department Care Team (Late st Contact Info) Description 06/23/2017 Telephone [facility] AT [address] [address] Katt Walter, commodity director Results Social History Tobacco Use Types Packs/Day Years Used Date Smoking Tobacco: Every Day Cigarettes Smokeless Tobacco: Never Comments:2 cig a day Alcohol Use Standard Drinks/Week Comments No 0 (1 standard drink = 0.6 oz pur e alcohol) Comments Unknown Sex and Gender Information Value Date Recorded Sex Assigned at Female 12/06/2019 3:36 PM PANEL EDGE SEALER Legal Sex Female 5:20 PM CDT Gender Identity Female 12/06/2019 3:36 PM PANEL EDGE SEALER Sexual Orientation Straight 12/06/2019 3: 36 PM PANEL EDGE SEALER Occupation Industry Job Start Date Job End Date Not on file Not on file Not on file Not on file documented as of this encounter Progress Notes * Katt Walter RN - 07/05/2017 10:34 AM CDT I called the patient to follow up on her labs due last week. The patient states she is scheduled toget her labs drawn this afternoon. The patient had no further questions or concerns. * Katt Walter RN - 06/23/2017 3:55 PM CDT Ensure patient is taking her KCL supplement as prescribed. ?? If she is then increase to 20mEq BID.??Repeat BMP in 1 week. Above message from Christina GARCIA. I left a voicemail for the patient to call our office. The office number and my extension were provided. 06/24/17 - I informed the patient of the above information from Christina GARCIA. The patient states she did miss a few days of her Potassium but she will go back on her Potassium and recheck her labs in oneweek. The lab slip will be mailed to the patient. The patient verbalized understanding and had no further questions. Message to Christina GARCIA documented in this encounter Plan of Treatment Not on file documented as of this encounter Procedures Procedure Name Priority Date/Time Associated Diagnosis Comments BASIC METABOLIC PANEL Routine 07/06/2017 Essential (primary) hypertension Hypokalemia documented in this encounter Results * BASIC METABOLIC PANEL (07/06/2017) SODIUM S/P/B 139 POTASSIUM S/P/B 4.5 CO2 23 CHLORIDE S/P/B 104 GLUCOSE 168 mg/dL CALCIUM S/P/B 9.8 BUN 17 CREATININE S/P/B 0.95 0.5 - 1.0 EGFR AFR. AMER. 78 <=90 EGFR NON-AFR. AMER. 67 <=90 07/06/2017 Asa Mcnamara MD LABORATORY Final Result documented in this encounter Visit Diagnoses Diagnosis Essential (primary) hypertension- Primary Unspecified essential hypertension Hypokalemia Hypopotassemia documented in this encounter Care Teams Textile Dyer Relationship Specialty Start Date End Date Deisi Andrews MD [address] [place] [address] [place] [address] PCP - General FAMILY PRACTICE 06/15/17 10/14/19 Asa Mcnamara MD [facility]. [facility] [address] [place] [address] [place] Chemical Instrumentation Officer CARDIOVASCULAR DISEASE 05/15/16 documented as of this encounter
--- OUTSIDE RECORDS SUMMARY | 2024-11-12 04:47 | XMS_ITS | Encounter Summary ---
Author Organization [facility] Address [facility]. [place], [place] [address] [place] [address] Care Team Providers Care Acute Care Registered Nurse Name Role Phone Asa Mcnamara MD Unavailable [phone] Deisi Andrews MD Primary Care Provider [phone] Reason for Visit * Reason Onset Date Comments Lab Results 12/02/2017 Encounter Details Date Type Department Care Team (Late st Contact Info) Description 12/02/2017 Telephone [facility] at [place] [phone] Karen Barboza passenger relations representative Results Social History Tobacco Use Types Packs/Day Years Used Date Smoking Tobacco: Every Day Cigarettes Smokeless Tobacco: Never Comments:2 cig a day Alcohol Use Standard Drinks/Week Comments No 0 (1 standard drink = 0.6 oz pur e alcohol) Comments Unknown Sex and Gender Information Value Date Recorded Sex Assigned at Female 12/06/2019 3:36 PM POLICE OR PATROL PARK OFFICER Legal Sex Female 5:20 PM CDT Gender Identity Female 12/06/2019 3:36 PM POLICE OR PATROL PARK OFFICER Sexual Orientation Straight 12/06/2019 3: 36 PM POLICE OR PATROL PARK OFFICER Occupation Industry Job Start Date Job End Date Not on file Not on file Not on file Not on file documented as of this encounter Progress Notes * Karen Barboza RN - 12/02/2017 4:21 PM CST Increase KCL to 20 meq BID until Wednesday. Repeat labs will be done at that time. Pt notified of the above per Stevan, explained that K+ level on recent labs is low, pt verbalizes understanding, has no further questions, but states she did not take KCL X 4 days, the 4 days prior to lab draw, I asked her why and she did not answer, but pt states she went back on KCL as prescribed 20 meq daily as of yesterday and states she will stay on this dose, also states she will take me ds including KCL as prescribed. Message to Stevan, OK for pt to resume KCL 20 meq daily, no further orders. Rosy Barboza R.N. CE OR PATROL PARK OFFICER CE OR PATROL PARK OFFICER documented in this encounter Plan of Treatment Not on file documented as of this encounter Visit Diagnoses Not on filedocumented in this encounter Care Teams Acute Care Registered Nurse Relationship Specialty Start Date End Date Deisi Andrews MD [address] [place] [address] [place] [address] PCP - General FAMILY PRACTICE 06/15/17 10/14/19 Asa Mcnamara MD [facility] [address] [place] [address] [place] Manager Floral CARDIOVASCULAR DISEASE 05/15/16 documented as of this encounter
--- OUTSIDE RECORDS SUMMARY | 2024-11-12 04:47 | XMS_ITS | Encounter Summary ---
Author Organization [facility] Address [address] [facility] [place] [address] [place] [address] Care Team Providers Care Reading Intervention Teacher Name Role Phone Asa Mcnamara MD Unavailable [phone] Deisi Andrews MD Primary Care Provider [phone] Encounter Details Date Type Department Care Team (Late st Contact Info) Description 11/19/2017 9:19 AM DIRECTOR OF PROFESSIONAL SERVICES - 11/19/2017 11:59 PM [facility] Hospital Encounter [facility] [address] [place], [place] [id number] Asa Mcnamara MD [facility]. [facility] [address] [place], [place] [phone] Discharge Disposition: Home or Self Care (Routine Discharge) Social History Tobacco Use Types Packs/Day Years Used Date Smoking Tobacco: Every Day Cigarettes Smokeless Tobacco: Never Comments:2 cig a day Alcohol Use Standard Drinks/Week Comments No 0 (1 standard drink = 0.6 oz pur e alcohol) Comments Unknown Sex and Gender Information Value Date Recorded Sex Assigned at Female 12/06/2019 3:36 PM DIRECTOR OF PROFESSIONAL SERVICES Legal Sex Female 5:20 PM CDT Gender Identity Female 12/06/2019 3:36 PM DIRECTOR OF PROFESSIONAL SERVICES Sexual Orientation Straight 12/06/2019 3: 36 PM DIRECTOR OF PROFESSIONAL SERVICES Occupation Industry Job Start Date Job End [...] Associated Diagnosis Comments BASIC METABOLIC PANEL Routine 11/19/2017 9:48 AM DIRECTOR OF PROFESSIONAL SERVICES Essential (primary) hypertension Peripheral vascular disease Mixed hyperlipidemia LIPID PANEL Routine 11/19/2017 9:48 AM DIRECTOR OF PROFESSIONAL SERVICES Essential (primary) hypertension Peripheral vascular disease Mixed hyperlipidemia LIPOPROTEIN, LDL CHOL, DIRECT Routine 11/19/2017 9:48 AM DIRECTOR OF PROFESSIONAL SERVICES documented in this encounter Results * (ABNORMAL) LIPOPROTEIN, LDL CHOL, DIRECT (11/19/2017 9:48 AM DIRECTOR OF PROFESSIONAL SERVICES) DIRECT LDL 101(H) <100 MG/DL 11/19/2017 11:10 AM DIRECTOR OF PROFESSIONAL SERVICES [facility] 11/19/2017 9:48 AM DIRECTOR OF PROFESSIONAL SERVICES us Asa Mcnamara MD LABORATORY Final Result [facility] [address] [place] [address], * (ABNORMAL) LIPID PANEL (11/19/2017 9:48 AM [facility]) CHOLESTEROL 186 <200 MG/DL 11/19/2017 10:44 AM [facility] TRIGLYCERIDES 602(H) <150 MG/DL 11/19/2017 10:44 AM [facility] Comment:REFLEXED DIRECT LDL DUE TO TRIG >400. HDL 30(L) >40.0 MG/DL 11/19/2017 10:44 AM [facility] LDL (CALCULATED) NOT CALCULATED <100 MG/L 11/19/2017 10:44 AM [facility] Comment:TRIGLYCERIDE >400 IN VALIDATES FRACTIONATION. NON HDL CHOLESTEROL 156(H) <130 MG/DL 11/19/2017 10:44 AM [facility] CHOL/HDL RATIO 6.2(H) 0.0 - 4.5 11/19/2017 10:44 AM [facility] VLDL CALCULATION NOT CALCULATED 5 - 55 MG/DL 11/19/2017 10:44 AM [facility] Comment:TRIGLYCERIDE >400 IN VALIDATES FRACTIONATION. LIPID INTERPRETATION 11/19/2017 10:44 AM [facility] Comment: NIH CONCENSUS REPORT RECOMMENDATIONS: [...] ?LDL ? >=160 ?>=130 11/19/2017 9:48 AM DIRECTOR OF PROFESSIONAL SERVICES Asa Mcnamara MD LABORATORY Final Result Performing Organization Address [facility]/State/[place] Co de Phone Number [facility] [address] [place] [address], * (ABNORMAL) BASIC METABOLIC PANEL (11/19/2017 9:48 AM DIRECTOR OF PROFESSIONAL SERVICES) GLUCOSE 136(H) 70 - 99 MG/DL 11/19/2017 10:44 AM DIRECTOR OF PROFESSIONAL SERVICES [facility] BUN 10 7 - 18 MG/DL 11/19/2017 10:44 AM DIRECTOR OF PROFESSIONAL SERVICES [facility] CREATININE S/P/B 0.76 0.55 - 1.02 MG/DL 11/19/2017 10:44 AM [facility] SODIUM S/P/B 137 136 - 145 MMOL/L 11/19/2017 10:44 AM [facility] POTASSIUM S/P/B 3.8 3.5 - 5.1 MMOL/L 11/19/2017 10:44 AM [facility] CHLORIDE S/P/B 103 100 - 108 MMOL/L 11/19/2017 10:44 AM [facility] CO2 26.7 21 - 32 MMOL/L 11/19/2017 10:44 AM [facility] CALCIUM S/P/B 8.9 8.5 - 10.1 MG/DL 11/19/2017 10:44 AM [facility] ANION GAP 11.1 8 - 20 MMOL/L 11/19/2017 10:44 AM [facility] BUN CREATININE RATIO 13.2 6 - 26 11/19/2017 10:44 AM [facility] EGFR NON-AFR. AMER. >60 >60 ML/MIN/1.7 3 M2 11/19/2017 10:44 AM [facility] EGFR AFR. AMER. >60 >60 ML/MIN/1.7 3 M2 11/19/2017 10:44 AM [facility] Comment: NOTE: eGFR is not calculated for patients <18 years of age. This is an estimated GFR (CKD EPI) and should not be used for calculating drug doses. 11/19/2017 9:48 AM DIRECTOR OF PROFESSIONAL SERVICES Asa Mcnamara MD LABORATORY Final Result [facility] [address] [place] [address], [place] [phone] documented in this encounter Visit Diagnoses Diagnosis Essential (primary) hypertension Unspecified essential hypertension Peripheral vascular disease (CMS/HCC) Peripheral vascular disease, unspecified Mixed hyperlipidemia documented in this encounter Care Teams Reading Intervention Teacher Relationship Specialty Start Date End Date Deisi Andrews MD [address] [place] [address] [place] [address] PCP - General FAMILY PRACTICE 06/15/17 10/14/19 Asa Mcnamara MD [facility] [address] [place] [address] [place] Electrical Foreman CARDIOVASCULAR DISEASE 05/15/16 documented as of this encounter
--- OUTSIDE RECORDS SUMMARY | 2024-11-12 04:47 | XMS_ITS | Encounter Summary ---
Author Organization [facility] Address [address] [place] [address] [place] [address] Care Team Providers Care Literacy Coordinator Name Role Phone Asa Mcnamara MD Unavailable [phone] Deisi Andrews MD Primary Care Provider [phone] Reason for Visit * Reason Onset Date Comments Prior Authorization 11/23/2018 [place] Rupali or Auth for Rosuvastatin 10mg has been APPROVED for 1 month. Encounter Details Date Type Department Care Team (Late st Contact Info) Description 11/23/2018 Telephone [facility] at [facility] [address] [place] [address] Asa Mcnamara MD [facility] [address] [place] [address] Prior Authorization ([place] Prior Auth for Rosuvastatin 10mg has been APPROVED for 1 month.) Social History Tobacco Use Types Packs/Day Years Used Date Smoking Tobacco: Every Day Cigarettes Smokeless Tobacco: Never Comments:1 pk day Alcohol Use Standard Drinks/Week Comments No 0 (1 standard drink = 0.6 oz pur e alcohol) Comments Unknown Sex and Gender Information Value Date Recorded Sex Assigned at Female 12/06/2019 3:36 PM SAUSAGE 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 Legal Sex Female 5:20 PM CDT Gender Identity Female 12/06/2019 3:36 PM SAUSAGE 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 Sexual Orientation Straight 12/06/2019 3: 36 PM SAUSAGE 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 Occupation Industry Job Start Date Job End Date Not on file Not on file Not on file Not on file documented as of this encounter Progress Notes * JOSE Estrada - 11/23/2018 1:09 PM CST She stated she has the order that was given to her in July. AGE 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 * Hari Rehman NP - 11/23/2018 1:01 PM CST ashlee please order lipid panel to be done tomorrow. Patient either needs to sweet pickle maker slip or we fax to [employer]. AGE 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 * JOSE Estrada - 11/23/2018 11:53 AM CST [facility] [place] Prior Auth for Rosuvastatin 10mg has been APPROVED for 1 month, stating Please provide updated office visit progress notes and labs detailing plan of care and response to therapy with future request. She is not due for her follow up here at the office until 01-25-2019, so I called [facility] to see ifthey would extend the Approval until her appointment and the best they will do is if we have her get her Lipid panel checked prior to the 1 month approval running out and get them the results, they will extend it. I called Rody and she is going to go to [facility] tomorrow and get it drawn. She states she has been taking her medication and I even confirmed with the pharmacy that she has been picking it up. Lm AGE 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 documented in this encounter Plan of Treatment Not on file documented as of this encounter Visit Diagnoses Not on filedocumented in this encounter Care Teams Literacy Coordinator Relationship Specialty Start Date End Date Deisi Andrews MD [address] [place] [address] [place] [address] PCP - General FAMILY PRACTICE 06/15/17 10/14/19 Asa Mcnamara MD [facility] [address] [place] [address] [place] Compensator CARDIOVASCULAR DISEASE 05/15/16 documented as of this encounter
--- OUTSIDE RECORDS SUMMARY | 2024-11-12 04:47 | XMS_ITS | Encounter Summary ---
Author Organization [facility] Address [facility]6 [facility]. [place], [place] [address] [place] [address] Care Team Providers Care Tool Rental Technician Name Role Phone Asa Mcnamara MD Unavailable [phone] Deisi Andrews MD Primary Care Provider [phone] Reason for Visit * Reason Onset Date Comments Medication 08/24/2018 Plavix and Atorv astatin Encounter Details Date Type Department Care Team (Late st Contact Info) Description 08/24/2018 Telephone [facility] at [facility], [facility] [address] [place] [address] [facility]. [facility] [address] [place] [address] Medication (Plavix and Atorvastatin) Social History Tobacco Use Types Packs/Day Years Used Date Smoking Tobacco: Every Day Cigarettes Smokeless Tobacco: Never Comments:1 pk day Alcohol Use Standard Drinks/Week Comments No 0 (1 standard drink = 0.6 oz pur e alcohol) Comments Unknown Sex and Gender Information Value Date Recorded Sex Assigned at Female 12/06/2019 3:36 PM NAPRAPATH Legal Sex Female 5:20 PM CDT Gender Identity Female 12/06/2019 3:36 PM NAPRAPATH Sexual Orientation Straight 12/06/2019 3: 36 PM NAPRAPATH Occupation Industry Job Start Date Job End Date Not on file Not on file Not on file Not on file documented as of this encounter Progress Notes * JOSE Estrada - 08/30/2018 10:52 AM CDTAddended by: LM VALLES on: 08/30/2018 10:52 AM Modules accepted: Orders * JOSE Estrada - 08/30/2018 10:52 AM CDT Done, med list updated and script sent into the pharmacy. * Hari Rehman NP - 08/30/2018 9:25 AM CDT Discussed plan of care with Dr. Mcnamara. Recommend Resuming plavix at this time with baby aspirin every other day. Called patient. She is agreeable to stop full strength aspirin and resume plavix with baby aspirin. She will also be starting rosuvastatin soon. Lm resume plavix 75 mg daily and aspirin 81 mg every OTHER day. Thanks * JOSE Estrada - 08/24/2018 11:24 AM CDT Done, patient contacted and informed, med list updated and script sent into the pharmacy as well asa phone call about the d/c on the plavix. * Hari Rehman NP - 08/24/2018 10:34 AM CDT Noted. Thanks. Please switch to rosuvastatin 10 mg daily. Patient is intolerant to simvastatin, atorvastatin. Pravastatin was unsuccessful with achieving optimal LDL results. * JOSE Estrada - 08/24/2018 9:56 AM CDT WM Hari in [place] called to inform Dr. Mcnamara that when she came in to milk pickup driver her scripts, she declined the Plavix because it was making her bruise too bad. I called Rody and she states she stopped the Plavix a couple weeks ago due to excessive bruising and increased her Aspirin to 325mg daily. She also states she is having problems with the Atorvastatin, her legs are cramping so much from itthat she is unsure how much longer she can handle it. Please adviseLm documented in this encounter Plan of Treatment Not on file documented as of this encounter Visit Diagnoses Diagnosis PVD (peripheral vascular disease) (CMS/[facility]) Peripheral vascular disease, unspecified documented in this encounter Care Teams Tool Rental Technician Relationship Specialty Start Date End Date Deisi Andrews MD [address] [place] [address] [place] [address] PCP - General FAMILY PRACTICE 06/15/17 10/14/[address] [facility]. [facility] [address] [place] [address] [place] Datastage Consultant CARDIOVASCULAR DISEASE 05/15/16 documented as of this encounter
--- OUTSIDE RECORDS SUMMARY | 2024-11-12 04:47 | XMS_ITS | Encounter Summary ---
Author Organization [facility] Address [address] [facility] [place] [address] [place] [address] Care Team Providers Care Health Services Information Specialist Name Role Phone Asa Mcnamara MD Unavailable Heber Adorno MD Primary Care Provider Unavailable Reason for Visit * Reason Onset Date Comments Returned Call 06/01/2017 Encounter Details Date Type Department Care Team (Late st Contact Info) Description 06/01/2017 Telephone [employer] [facility] AT [address] [address] Asa Mcnamara MD [address] [address] Returned Call Social History Tobacco Use Types Packs/Day Years Used Date Smoking Tobacco: Every Day Cigarettes Smokeless Tobacco: Never Alcohol Use Standard Drinks/Week Comments No 0 (1 standard drink = 0.6 oz pur e alcohol) Comments Unknown Sex and Gender Information Value Date Recorded Sex Assigned at Female 12/06/2019 3:36 PM SKATE BOARDER Legal Sex Female 5:20 PM CDT Gender Identity Female 12/06/2019 3:36 PM SKATE BOARDER Sexual Orientation Straight 12/06/2019 3: 36 PM SKATE BOARDER Occupation Industry Job Start Date Job End Date Not on file Not on file Not on file Not on file documented as of this encounter Progress Notes * Porsha David - 06/01/2017 11:20 AM CDT Received VM message stating she was returning a call from the hospital number. Message sent to ADONAY Gallegos to return call to [phone] or [phone]. documented in this encounter Plan of Treatment Not on file documented as of this encounter Visit Diagnoses Not on filedocumented in this encounter Care Teams Health Services Information Specialist Relationship Specialty Start Date End Date Heber Adorno MD PCP - General 03/11/17 06/14/17 Asa Mcnamara MD [place] [id number] [place] [address] [place] Quality Lab Technician CARDIOVASCULAR DISEASE 05/15/16 documented as of this encounter
--- OUTSIDE RECORDS SUMMARY | 2024-11-12 04:47 | XMS_ITS | Encounter Summary ---
Author Organization [facility] Address [address] [facility] [place] [address] [place] [address] Care Team Providers Care Wrist Hemmer Name Role Phone Asa Mcnamara MD Unavailable [phone] , Heber Trinidad MD Primary Care Provider Unavailable Encounter Details Date Type Department Care Team (Late st Contact Info) Description 04/23/2017 Orders Only [facility] [place] [address] [place], [place] [id number] Asa Mcnamara MD [address] [id number] Social History Tobacco Use Types Packs/Day Years Used Date Smoking Tobacco: Every Day Cigarettes Smokeless Tobacco: Never Alcohol Use Standard Drinks/Week Comments No 0 (1 standard drink = 0.6 oz pur e alcohol) Comments Unknown Sex and Gender Information Value Date Recorded Sex Assigned at Female 12/06/2019 3:36 PM ACID BLEACHER Legal Sex Female 5:20 PM CDT Gender Identity Female 12/06/2019 3:36 PM ACID BLEACHER Sexual Orientation Straight 12/06/2019 3: 36 PM ACID BLEACHER Occupation Industry Job Start Date Job End Date Not on file Not on file Not on file Not on file documented as of this encounter Plan of Treatment Scheduled Orders Name Type Priority Associated Diagnoses Orde r Schedule BASIC METABOLIC PANEL Lab Routine Edema Expected: 04/27/2017, Expires: 04/23/2018 documented as of this encounter Visit Diagnoses Diagnosis Edema- Primary documented in this encounter Care Teams Wrist Hemmer Relationship Specialty Start Date End Date Heber Adorno MD PCP - General 03/11/17 06/14/17 Asa Mcnamara MD [facility]. [facility] [address] [place] [address] [employer] Coach CARDIOVASCULAR DISEASE 05/15/16 documented as of this encounter
--- OUTSIDE RECORDS SUMMARY | 2024-11-12 04:47 | XMS_ITS | Encounter Summary ---
Author Organization [facility] Address [address] [place] [address] [place] [address] Care Team Providers Care Grey Goods Marker Name Role Phone Asa Mcnamara MD Unavailable Deisi Andrews MD Primary Care Provider [phone] Encounter Details Date Type Department Care Team (Late st Contact Info) Description 12/01/2017 2:24 PM WELD ENGINEER - 12/01/2017 11:59 PM WELD ENGINEER Hospital Encounter [facility] [place], [place] [id number] Asa Mcnamara MD Three [facility]. [facility] [address] [place], [place] [id number] Discharge Disposition: Home or Self Care (Routine Discharge) Social History Tobacco Use Types Packs/Day Years Used Date Smoking Tobacco: Every Day Cigarettes Smokeless Tobacco: Never Comments:2 cig a day Alcohol Use Standard Drinks/Week Comments No 0 (1 standard drink = 0.6 oz pur e alcohol) Comments Unknown Sex and Gender Information Value Date Recorded Sex Assigned at Female 12/06/2019 3:36 PM WELD ENGINEER Legal Sex Female 5:20 PM CDT Gender Identity Female 12/06/2019 3:36 PM WELD ENGINEER Sexual Orientation Straight 12/06/2019 3: 36 PM WELD ENGINEER Occupation Industry Job Start Date Job [...] mouth 2 (two) times daily. 06/07/2017 8 fenofibrate 160 MG tablet Take 1 [...] mouth daily. 30 tablet 3 11/25/2017 0 metFORMIN 500 MG tablet Take 1 tablet [...] Procedure Name Priority Date/Time Associated Diagnosis Comments PROTHROMBIN TIME, VENOUS Routine 12/01/2017 2:36 PM WELD ENGINEER PVD (peripheral vascular disease) with claudication BASIC METABOLIC PANEL Routine 12/01/2017 2:36 PM WELD ENGINEER PVD (peripheral vascular disease) with claudication CBC W/DIFF AUTOMATED Routine 12/01/2017 2:36 PM WELD ENGINEER PVD (peripheral vascular disease) with claudication documented in this encounter Results * PROTHROMBIN TIME, VENOUS (12/01/2017 2:36 PM WELD ENGINEER) Pathologist [facility] PROTIME 11.6 9.6 - 12.2 SEC 12/01/2017 4:18 PM [facility] INR 1.1 12/01/2017 4:18 PM [facility] Comment: Recommended INR Therapeutic Goals: ??2.0-3.0 Routine Therapy ??2.5-3.5 Mechanical Prosthetic Valves (High Risk) ??3.0-4.0 Acute PR (to prevent Systemic Embolism) The INR is used only for patients on stable oral anticoagulant therapy. It makes no significant contribution to the diagnosis or treatment of patients whose Protime is prolonged for other reasons. 12/01/2017 2:36 PM WELD ENGINEER Asa Mcnamara MD LABORATORY Final Result [address] [address], * CBC W/DIFF AUTOMATED (12/01/2017 2:36 PM WELD ENGINEER) [facility] WBC 8.4 4.8 - 10.8 x10'3/uL 12/01/2017 3:45 PM [facility] RBC 4.46 4.20 - 5.40 x10'6/uL 12/01/2017 3:45 PM [facility] HGB 12.7 12.0 - 16.0 G/DL 12/01/2017 3:45 PM [facility] HCT 38.2 38.0 - 48.0 % 12/01/2017 3:45 PM [facility] MCV 85.7 81.0 - 99.0 FL 12/01/2017 3:45 PM [facility] MCH 28.5 27.0 - 31.0 PG 12/01/2017 3:45 PM [facility] MCHC 33.2 32.0 - 36.0 G/DL 12/01/2017 3:45 PM WELD ENGINEER [facility] RDW 13.5 11.5 - 14.5 % 12/01/2017 3:45 PM [facility] PLT 226 130 - 400 x10'3/uL 12/01/2017 3:45 PM [facility] MPV 10.2 9.3 - 12.2 FL 12/01/2017 3:45 PM WELD ENGINEER [facility] NEUTROPHILS % 59.0 43.0 - 65.0 % 12/01/2017 3:45 PM [facility] LYMPHOCYTES % 29.9 20.0 - 46.0 % 12/01/2017 3:45 PM [facility] MONOCYTES % 7.4 5.0 - 12.0 % 12/01/2017 3:45 PM [facility] EOSINOPHILS 2.7 1.0 - 3.0 % 12/01/2017 3:45 PM [facility] BASOPHILS 0.5 0.0 - 1.0 % 12/01/2017 3:45 PM [facility] IMMATURE GRANS % 0.5 0.0 - 1.0 % 12/01/2017 3:45 PM [facility] 12/01/2017 2:36 PM WELD ENGINEER us Asa Mcnamara MD LABORATORY Final Result [facility] [address] [place] [address], * (ABNORMAL) BASIC METABOLIC PANEL (12/01/2017 2:36 PM WELD ENGINEER) [facility] Signature GLUCOSE 153(H) 70 - 99 MG/DL 12/01/2017 3:57 PM [facility] BUN 10 7 - 18 MG/DL 12/01/2017 3:57 PM [facility] CREATININE S/P/B 0.81 0.55 - 1.02 MG/DL 12/01/2017 3:57 PM [facility] SODIUM S/P/B 141 136 - 145 MMOL/L 12/01/2017 3:57 PM [facility] POTASSIUM S/P/B 3.2(L) 3.5 - 5.1 MMOL/L 12/01/2017 3:57 PM [facility] CHLORIDE S/P/B 106 100 - 108 MMOL/L 12/01/2017 3:57 PM [facility] CO2 26.6 21 - 32 MMOL/L 12/01/2017 3:57 PM [facility] CALCIUM S/P/B 8.5 8.5 - 10.1 MG/DL 12/01/2017 3:57 PM [facility] ANION GAP 11.6 8 - 20 MMOL/L 12/01/2017 3:57 PM [facility] BUN CREATININE RATIO 12.3 6 - 26 12/01/2017 3:57 PM [facility] EGFR NON-AFR. AMER. >60 >60 ML/MIN/1.7 3 M2 12/01/2017 3:57 PM [facility] EGFR AFR. AMER. >60 >60 ML/MIN/1.7 3 M2 12/01/2017 3:57 PM [facility] Comment: NOTE: eGFR is not calculated for patients <18 years of age. This is an estimated GFR (CKD EPI) and should not be used for calculating drug doses. 12/01/2017 2:36 PM WELD ENGINEER Asa Mcnamara MD LABORATORY Final Result [facility] [address] [facility] [place] [address], documented in this encounter Visit Diagnoses Diagnosis PVD (peripheral vascular disease) with claudication (CMS/HCC) Peripheral vascular disease, unspecified documented in this encounter Care Teams Grey Goods Marker Relationship Specialty Start Date End Date Deisi Andrews MD [address] [place] [address] [place] [address] PCP - General FAMILY PRACTICE 06/15/17 10/14/19 Asa Mcnamara MD Three [facility]. [facility] [address] [place] [address] [place] African Studies Professor CARDIOVASCULAR DISEASE 05/15/16 documented as of this encounter
--- OUTSIDE RECORDS SUMMARY | 2024-11-12 04:47 | XMS_ITS | Encounter Summary ---
Author Organization [facility] Address [address] [facility] [place] [address] [place] [address] Care Team Providers Care Steel Wheel Engraver Name Role Phone Asa Mcnamara MD Unavailable [phone] Heber Adorno MD Primary Care Provider Unavailable Reason for Visit * Reason Onset Date Comments Follow Up Call 06/01/2017 Encounter Details Date Type Department Care Team (Late st Contact Info) Description 06/01/2017 Telephone [facility] AT [address] [address] Karen Barboza, RN Follow Up Call Social History Tobacco Use Types Packs/Day Years Used Date Smoking Tobacco: Every Day Cigarettes Smokeless Tobacco: Never Alcohol Use Standard Drinks/Week Comments No 0 (1 standard drink = 0.6 oz pur e alcohol) Comments Unknown Sex and Gender Information Value Date Recorded Sex Assigned at Female 12/06/2019 3:36 PM PROFESSOR OF ARCHITECTURE Legal Sex Female 5:20 PM CDT Gender Identity Female 12/06/2019 3:36 PM PROFESSOR OF ARCHITECTURE Sexual Orientation Straight 12/06/2019 3: 36 PM PROFESSOR OF ARCHITECTURE Occupation Industry Job Start Date Job End Date Not on file Not on file Not on file Not on file documented as of this encounter Progress Notes * Karen Barboza RN - 06/01/2017 10:47 AM CDT Called pt to f/u on BMP due, left a VM on home phone that our office is calling to make sure she has lab slip for BMP and needs to go to the lab this week, left our office number and my ext on the message. Called cell phone, no answer and VM is not set up. Rosy Barboza R.N. Received a message from placement secretary that pt returned my call, called pt on cell phone, no answer and VM is not set up, called pt on home phone and left another VM to call our office, left our office number and my ext on the message. Rosy Barboza R.N. documented in this encounter Plan of Treatment Not on file documented as of this encounter Visit Diagnoses Not on filedocumented in this encounter Care Teams Steel Wheel Engraver Relationship Specialty Start Date End Date Heber Adorno MD PCP - General 03/11/17 06/14/17 Asa Mcnamara MD [facility] [address] [place] [address] [place] Benefits Assistant CARDIOVASCULAR DISEASE 05/15/16 documented as of this encounter
--- OUTSIDE RECORDS SUMMARY | 2024-11-12 04:47 | XMS_ITS | Encounter Summary ---
Author Organization [facility] Address [address] [facility]. [place], [place] [address] [place] [address] Care Team Providers Care Leather Production Artisan Name Role Phone Asa Mcnamara MD Unavailable [phone] Deisi Andrews MD Primary Care Provider [phone] Encounter Details Date Type Department Care Team (Late st Contact Info) Description 06/27/2018 7:50 AM CDT - 06/27/2018 7:56 AM CDT Hospital Encounter [facility] [place], [place] [phone] Asa Mcnamara MD Three [facility]. [facility] [address] [place], [place] [phone] Discharge Disposition: Home or Self Care (Routine Discharge) Social History Tobacco Use Types Packs/Day Years Used Date Smoking Tobacco: Every Day Cigarettes Smokeless Tobacco: Never Comments:1 pk day Alcohol Use Standard Drinks/Week Comments No 0 (1 standard drink = 0.6 oz pur e alcohol) Comments Unknown Sex and Gender Information Value Date Recorded Sex Assigned at Female 12/06/2019 3:36 PM TURNER IN Legal Sex Female 5:20 PM CDT Gender Identity Female 12/06/2019 3:36 PM TURNER IN Sexual Orientation Straight 12/06/2019 3: 36 PM TURNER IN Occupation Industry Job Start Date Job End [...] 75 MG tabletIndications :PVD (peripheral vascular disease) (CMS/[facility]) Take 1 tablet (75 mg total) by mouth daily. 30 tablet 2 12/07/2017 8 fenofibrate 160 MG tablet Take 1 tablet (160 mg total) by mouth daily. 30 tablet 4 11/25/2017 9 fluoxetine 20 MG capsule 40 mg daily. 06/23/2018 8 fluoxetine 40 MG capsule Take 1 capsule (40 mg total) by mouth daily. 08/18/2017 8 furosemide 40 MG tablet Take 1 tablet (40 mg total) by mouth daily. 30 tablet 3 06/07/2017 8 hydrocodone-aceta minophen 5-325 MG tablet Take 1 tablet by mouth 2 (two) times daily. 07/30/2017 9 ISOSORBIDE MONONITRATE ER 30 MG 24 hr tablet TAKE ONE TABLET BY MOUTH ONCE DAILY 90 tablet 1 04/15/2018 8 losartan 100 MG tablet Take 1 tablet (100 mg total) by mouth daily. 30 tablet 3 11/25/2017 0 metoprolol succinate 25 MG 24 hr tablet Take 1 tablet (25 mg total) by mouth daily. 90 tablet 1 03/01/2018 8 montelukast 10 MG tablet 10 mg daily. 10/28/2016 8 nitroglycerin 0.[address] 1 tablet (0.4 mg total) under the tongue every 5 (five) minutes as needed for Chest Pain (If no relief after 3rd dose, contact 911.). 25 tablet 1 03/18/2018 8 POTASSIUM CHLORIDE CR 20 MEQ tablet TAKE 1 TABLET BY MOUTH ONCE DAILY 90 tablet 05/31/2018 9 pravastatin 80 MG tablet Take 1 tablet (80 mg total) by mouth nightly at bedtime. 30 tablet 4 11/25/2017 8 SYMBICORT 80-4.5 MCG/ACT inhaler Inhale 2 puffs into the lungs 2 (two) times daily. 01/05/2018 9 trazodone 50 MG tablet Take 1 tablet by mouth as needed. 08/16/2017 0 documented as of this encounter Plan of Treatment Not on file documented as of this encounter Procedures Procedure Name Priority Date/Time Associated Diagnosis Comments LIPID PANEL Routine 06/27/2018 8:03 AM CDT Symptoms involving cardiovascular system PVD (peripheral vascular disease) Essential hypertension Mixed hyperlipidemia LIPOPROTEIN, LDL CHOL, DIRECT Routine 06/27/2018 8:03 AM CDT documented in this encounter Results * (ABNORMAL) LIPOPROTEIN, LDL CHOL, DIRECT (06/27/2018 8:03 AM CDT) DIRECT LDL 132(H) <100 MG/DL 06/27/2018 10:13 AM CDT [facility] 06/27/2018 8:03 AM CDT Asa Mcnamara MD LABORATORY Final Result [facility] [address] [place] [address], [place] [phone] * (ABNORMAL) LIPID PANEL (06/27/2018 8:03 AM CDT) CHOLESTEROL 221(H) <200 MG/DL 06/27/2018 9:23 AM CDT [facility] TRIGLYCERIDES 548(H) <150 MG/DL 06/27/2018 9:23 AM CDT [facility] Comment:REFLEXED DIRECT LDL DUE TO TRIG >400. HDL 30(L) >40.0 MG/DL 06/27/2018 9:23 AM CDT [facility] LDL (CALCULATED) NOT CALCULATED <100 MG/DL 06/27/2018 9:23 AM T [facility] Comment:TRIGLYCERIDE >400 IN VALIDATES FRACTIONATION. NON HDL CHOLESTEROL 191(H) <130 MG/DL 06/27/2018 9:23 AM CDT [facility] CHOL/HDL RATIO 7.4(H) 0.0 - 4.5 06/27/2018 9:23 AM T [facility] VLDL CALCULATION NOT CALCULATED 5 - 55 MG/DL 06/27/2018 9:23 AM T [facility] Comment:TRIGLYCERIDE >400 IN VALIDATES FRACTIONATION. LIPID INTERPRETATION 06/27/2018 9:23 AM CDT [facility] Comment: NIH CONCENSUS REPORT RECOMMENDATIONS: ?ADULT [...] ? >=160 ?>=130 06/27/2018 8:03 AM CDT us Asa Mcnamara MD LABORATORY Final Result [facility] [address] [place] [address], documented in this encounter Visit Diagnoses Diagnosis Symptoms involving cardiovascular system Other symptoms involving cardiovascular system PVD (peripheral vascular disease) (CMS/HCC) Peripheral vascular disease, unspecified Essential hypertension Unspecified essential hypertension Mixed hyperlipidemia documented in this encounter Care Teams Leather Production Artisan Relationship Specialty Start Date End Date Deisi Andrews MD [address] [place] [address] [place] [address] PCP - General FAMILY PRACTICE 06/15/17 10/14/19 Asa Mcnamara MD Three [facility]. [facility] [address] [place] [address] [employer] Lifeguard CARDIOVASCULAR DISEASE 05/15/16 documented as of this encounter
--- OUTSIDE RECORDS SUMMARY | 2024-11-12 04:47 | XMS_ITS | Encounter Summary ---
Author Organization [facility] Address [facility]. [place], [place] [address] [place] [address] Care Team Providers Care Abrasive Coating Machine Operator Name Role Phone Asa Mcnamara MD Unavailable [phone] Deisi Andrews MD Primary Care Provider [phone] Encounter Details Date Type Department Care Team (Latest Contact Info) Description 09/07/2018 Abstract [facility] , Heber Trinidad MD Social History Tobacco Use Types Packs/Day Years Used Date Smoking Tobacco: Every Day Cigarettes Smokeless Tobacco: Never Comments:1 pk day Alcohol Use Standard Drinks/Week Comments No 0 (1 standard drink = 0.6 oz pur e alcohol) Comments Unknown Sex and Gender Information Value Date Recorded Sex Assigned at Female 12/06/2019 3:36 PM TAX COMMISSIONER Legal Sex Female 5:20 PM CDT Gender Identity Female 12/06/2019 3:36 PM TAX COMMISSIONER Sexual Orientation Straight 12/06/2019 3: 36 PM TAX COMMISSIONER Occupation Industry Job Start Date Job End Date Not on file Not on file Not on file Not on file documented as of this encounter Plan of Treatment Not on file documented as of this encounter Visit Diagnoses Not on filedocumented in this encounter Care Teams Abrasive Coating Machine Operator Relationship Specialty Start Date End Date Deisi Andrews MD [address] [place], [place] [address] [address] PCP - General FAMILY PRACTICE 06/15/17 10/14/19 Asa Mcnamara MD Three [facility]. [facility] [address] [place] [address] [place] Meter Shop Supervisor CARDIOVASCULAR DISEASE 05/15/16 documented as of this encounter
--- OUTSIDE RECORDS SUMMARY | 2024-11-12 04:47 | XMS_ITS | Encounter Summary ---
Author Organization [facility] Address [facility]. [place], [place] [address] [place] [address] Care Team Providers Care Sales Support Associate Name Role Phone Asa Mcnamara MD Unavailable [phone] Deisi Andrews MD Primary Care Provider [phone] Encounter Details Date Type Department Care Team (Latest Contact Info) Description 01/17/2018 Abstract [facility] Dane Sullivan, DO [address] [address] Social History Tobacco Use Types Packs/Day Years Used Date Smoking Tobacco: Every Day Cigarettes Smokeless Tobacco: Never Comments:1 pk day Alcohol Use Standard Drinks/Week Comments No 0 (1 standard drink = 0.6 oz pur e alcohol) Comments Unknown Sex and Gender Information Value Date Recorded Sex Assigned at Female 12/06/2019 3:36 PM TRANSIT SURVEY WORKER Legal Sex Female 5:20 PM CDT Gender Identity Female 12/06/2019 3:36 PM TRANSIT SURVEY WORKER Sexual Orientation Straight 12/06/2019 3: 36 PM TRANSIT SURVEY WORKER Occupation Industry Job Start Date Job End Date Not on file Not on file Not on file Not on file documented as of this encounter Plan of Treatment Not on file documented as of this encounter Visit Diagnoses Not on filedocumented in this encounter Care Teams Sales Support Associate Relationship Specialty Start Date End Date Deisi Andrews MD [address] [place] [address] [place] [address] PCP - General FAMILY PRACTICE 06/15/17 10/14/19 Asa Mcnamara MD [facility]. [facility] [address] [place] [address] [place] Canvas Worker Apprentice CARDIOVASCULAR DISEASE 05/15/16 documented as of this encounter
--- OUTSIDE RECORDS SUMMARY | 2024-11-12 04:47 | XMS_ITS | Encounter Summary ---
Author Organization [facility] Address [facility] [place], [place] [address] [place] [address] Care Team Providers Care Heddler Name Role Phone Asa Mcnamara MD Unavailable [phone] Deisi Andrews MD Primary Care Provider [phone] Encounter Details Date Type Department Care Team (Late st Contact Info) Description 08/24/2018 Orders Only [facility] at [address] [address] Lm Acharya, A Social History Tobacco Use Types Packs/Day Years Used Date Smoking Tobacco: Every Day Cigarettes Smokeless Tobacco: Never Comments:1 pk day Alcohol Use Standard Drinks/Week Comments No 0 (1 standard drink = 0.6 oz pur e alcohol) Comments Unknown Sex and Gender Information Value Date Recorded Sex Assigned at Female 12/06/2019 3:36 PM PULP BEATER Legal Sex Female 5:20 PM CDT Gender Identity Female 12/06/2019 3:36 PM PULP BEATER Sexual Orientation Straight 12/06/2019 3: 36 PM PULP BEATER Occupation Industry Job Start Date Job End Date Not on file Not on file Not on file Not on file documented as of this encounter Plan of Treatment Not on file documented as of this encounter Visit Diagnoses Not on filedocumented in this encounter Care Teams Heddler Relationship Specialty Start Date End Date Deisi Andrews MD NPI: [id number] [place] [address] [place] [address] PCP - General FAMILY PRACTICE 06/15/17 10/14/19 Asa Mcnamara MD [facility]. [facility] [address] [place] [address] [place] Attendant CARDIOVASCULAR DISEASE 05/15/16 documented as of this encounter
--- OUTSIDE RECORDS SUMMARY | 2024-11-12 04:47 | XMS_ITS | Encounter Summary ---
Author Organization [facility] Address [address] [place] [address] [place] [address] Care Team Providers Care Waste Machine Tender Name Role Phone Asa Mcnamara MD Unavailable [phone] Deisi Andrews MD Primary Care Provider [phone] Reason for Referral * Imaging (Routine) - Closed Specialty Diagnoses / Procedures Referred By Contac t Referred To Contact CARDIOLOGY Diagnoses Carotid stenosis Procedures USV CAROTID DUPLEX DILEEP Asa Mcnamara MD [address] [address] Phone: tel: fax: [place] [address] Phone: tel: Referral ID Status Reason Start Date Expiration Date Visits Re quested Visits Authorized [id number] Closed 01/05/2018 07/28/2018 1 1 * Imaging (Routine) - Closed Specialty Diagnoses / Procedures Referred By Contac t Referred To Contact CARDIOLOGY Diagnoses Symptoms involving cardiovascular system PVD (peripheral vascular disease) (CMS/HCC) Essential hypertension Procedures USV AORTA ILIAC IVC DUPLEX COMP Asa Mcnamara MD [address] [address] Phone: tel: fax: [facility] [place] [address] Phone: tel: Referral ID Status Reason Start Date Expiration Date Visits Re quested Visits Authorized [id number] Closed 01/05/2018 07/28/2018 1 1 * Imaging (Routine) - Closed Specialty Diagnoses / Procedures Referred By Contac t Referred To Contact CARDIOLOGY Diagnoses Symptoms involving cardiovascular system PVD (peripheral vascular disease) (CMS/HCC) Essential hypertension Procedures USV POST/PRE/OTHER KENZIE DILEEP Asa Mcnamara MD [facility]. [address] [address] Phone: tel: fax: [facility] [place] [address] Phone: tel: Referral ID Status Reason Start Date Expiration Date Visits Re quested Visits Authorized [id number] Closed 01/05/2018 07/28/2018 1 1 Reason for Visit * Imaging (Routine) - Closed Specialty Diagnoses / Procedures Referred By Contac t Referred To Contact CARDIOLOGY Diagnoses Symptoms involving cardiovascular system PVD (peripheral vascular disease) (CMS/HCC) Essential hypertension Procedures USV POST/PRE/OTHER KENZIE Asa Cazares MD [facility]. [address] [address] Phone: tel: fax: [facility] [place] [address] Phone: tel: Referral ID Status Reason Start Date Expiration Date Visits Re quested Visits Authorized [id number] Closed 01/05/2018 07/28/2018 1 1 Encounter Details Date Type Department Care Team (Late st Contact Info) Description 06/27/2018 7:57 AM CDT - 06/27/2018 11:59 PM CDT Hospital Encounter [facility] [address] [facility] [place] [address] Asa Mcnamara MD [facility]. [address] [place] [address] Discharge Disposition: Home or Self Care (Routine Discharge) Social History Tobacco Use Types Packs/Day Years Used Date Smoking Tobacco: Every Day Cigarettes Smokeless Tobacco: Never Comments:1 pk day Alcohol Use Standard Drinks/Week Comments No 0 (1 standard drink = 0.6 oz pur e alcohol) Comments Unknown Sex and Gender Information Value Date Recorded Sex Assigned at Female 12/06/2019 3:36 PM BLANKMAKER Legal Sex Female 5:20 PM CDT Gender Identity Female 12/06/2019 3:36 PM BLANKMAKER Sexual Orientation Straight 12/06/2019 3: 36 PM BLANKMAKER Occupation Industry Job Start Date Job End [...] USV AORTA ILIAC IVC DUPLEX COMP Routine 06/27/2018 9:58 AM CDT Symptoms involving cardiovascular system PVD (peripheral vascular disease) Essential hypertension USV CAROTID DUPLEX DILEEP Routine 06/27/2018 9:57 AM CDT Carotid stenosis USV KENZIE LTD DILEEP Routine 06/27/2018 9:57 AM CDT Symptoms involving cardiovascular system PVD (peripheral vascular disease) Essential hypertension documented in this encounter Results * USV AORTA ILIAC IVC DUPLEX COMP (06/27/2018 9:58 AM CDT) Anatomical Region Laterality Modality NA Vascular Ultraso und 06/27/2018 8:44 AM CDT Narrative 06/27/2018 5:39 PM CDT ?[id number] DUPLEX IMAGING ? VASCULAR LAB Pat.Name: ??RODY CRUZ ?Pat.ID: ?[id number] ? St.Date: ?? 06/27/2018 ? Refer.MD: ??Deisi Andrews ? Exam Time: 8:44:00 AM ? Study Type:SCOTTIE VS Aorta IVC Iliac Duplex DILEEP ??Age: ??1960,57Y ? Sex: ? FEMALE ? Sonogrphr: Liliana Mcbride RDMS ?Pat. Stat.:Outpatient ? History / Clinical:F/U PAD. [...] Procedure Note Asa Mcnamara MD - 06/27/2018 [id number] DUPLEX IMAGING VASCULAR LAB Pat.Name: RODY CRUZ Pat.ID: [id number] .Date: 06/27/2018 Refer.MD: Deisi Andrews Exam Time: [...] Signed 06/27/2018 05:39 PM Asa Mcnamara M.D. Asa Mcnamara MD VASC Final Result * USV CAROTID DUPLEX DILEEP (06/27/2018 9:57 AM CDT) Anatomical Region Laterality Modality Neck Vascular Ultraso und 06/27/2018 8:21 AM CDT Narrative 06/27/2018 5:33 PM CDT ?CAROTID ARTERY DUPLEX IMAGING ? VASCULAR LAB Pat.Name: ??GELSO, RODY ?Pat.ID: ?[id number] ? St.Date: ?? 06/27/2018 ? Refer.: ??Deisi Andrews ? Exam Time: 8:21:00 AM ?Study Type:SCOTTIE VS Duplex Carotid BI ??Age: ??1960,57Y ? Sex: ? FEMALE ? Sonogrphr: Liliana Mcbride, RDMS ?Pat. Stat.:Outpatient ? History / Clinical:HAs. F/U [...] 0.907 ? Signed 06/27/2018 05:33 PM Asa Mcnamara M.D. Procedure Note Asa Mcnamara MD - 06/27/2018 CAROTID ARTERY DUPLEX IMAGING VASCULAR LAB Pat.Name: RODY CRUZ Pat.ID: [id number] .Date: 06/27/2018 Refer.MD: Deisi Andrews Exam Time: [...] Signed 06/27/2018 05:33 PM Asa Mcnamara M.D. Asa Mcnamara MD VASC Final Result * USV POST/PRE/OTHER KENZIE DILEEP (06/27/2018 9:57 AM CDT) Anatomical Region Laterality Modality Extremity Vascular Ultraso und 06/27/2018 9:23 AM CDT Narrative 06/27/2018 12:07 PM CDT ?ARTERIAL DOPPLER - KENZIE ?BILATERAL LOWER EXTREMITY ? VASCULAR LAB ? Pat.Name: ??GELSO, RODY ?Pat.ID: ?[id number] ? St.Date: ?? 06/27/2018 ? Refer.: ??Deisi [...] anomaly. ++++++++++++++++++++++++++++++++++++ MEASUREMENTS: ++++++++++++++++++++++++++++++++++++ ?DOPPLER Left Dist WELCOME DESK AGENT ?? Dist WELCOME DESK AGENT PSV ?66.8 cm/s ? Left Dist BHUMI ?? Dist BHUMI PSV ?59.1 cm/s ? Right Dist WELCOME DESK AGENT ?? Dist WELCOME DESK AGENT PSV ?66.6 cm/s ? Right Dist BHUMI [...] EXTREMITY VASCULAR LAB Pat.Name: RODY CRUZ Pat.ID: [id number] St.Date: 06/27/2018 Refer.MD: Deisi Andrews Exam Time: 9:23:00 AM Study Type:SCOTTIE VS Arterial Doppler KENZIE [facility] Age: 2 1960,57Y Sex: FEMALE Sonogrphr: Liliana Mcbride RDMS Pat. Stat.:Outpatient History / Clinical:Pain when [...] anomaly. ++++++++++++++++++++++++++++++++++++ MEASUREMENTS: ++++++++++++++++++++++++++++++++++++ DOPPLER Left Dist WELCOME DESK AGENT Dist WELCOME DESK AGENT PSV 66.8 cm/s Left Dist BHUMI Dist BHUMI PSV 59.1 cm/s Right Dist WELCOME DESK AGENT Dist WELCOME DESK AGENT PSV 66.6 cm/s Right Dist BHUMI Dist [...] PM Asa Mcnamara M.D. Asa Mcnamara MD VASC Final Result documented in this encounter Visit Diagnoses Diagnosis Symptoms involving cardiovascular system Other symptoms involving cardiovascular system PVD (peripheral vascular disease) (CMS/HCC) Peripheral vascular disease, unspecified Essential hypertension Unspecified essential hypertension Carotid stenosis Occlusion and stenosis of carotid artery without mention of cerebral infarction documented in this encounter Care Teams Waste Machine Tender Relationship Specialty Start Date End Date Deisi Andrews MD [address] [place] [address] [place] [address] PCP - General FAMILY PRACTICE 06/15/17 10/14/19 Asa Mcnamara MD [facility] [address] [place] [address] [employer] Market Research Analyst CARDIOVASCULAR DISEASE 05/15/16 documented as of this encounter
--- OUTSIDE RECORDS SUMMARY | 2024-11-12 04:48 | XMS_ITS | Encounter Summary ---
Author Organization [facility] Address [address] [facility]. [place], [place] [address] [place] [address] Care Team Providers Care Sewing Machine Repairer Helper Name Role Phone Dane Sullivan DO Primary Care Provider [phone] Asa Mcnamara MD Unavailable [phone] Deisi Andrews MD Primary Care Provider [phone] Heber Huynh MD Primary Care Provider Unavailable Deisi Andrews MD Primary Care Provider [phone] Encounter Details Date Type Department Care Team (Late st Contact Info) Description 09/02/2016 Abstract [place] [address] Dane Sullivan DO [address] [facility] [address] [place] [address] Social History Tobacco Use Types Packs/Day Years Used Date Smoking Tobacco: Every Day Cigarettes Smokeless Tobacco: Never Comments:3 cig a day Alcohol Use Standard Drinks/Week Comments No 0 (1 standard drink = 0.6 oz pur e alcohol) Comments Unknown Sex and Gender Information Value Date Recorded Sex Assigned at Female 12/06/2019 3:36 PM SMELTER OPERATOR Legal Sex Female 5:20 PM CDT Gender Identity Female 12/06/2019 3:36 PM SMELTER OPERATOR Sexual Orientation Straight 12/06/2019 3: 36 PM SMELTER OPERATOR Occupation Industry Job Start Date Job End Date Not on file Not on file Not on file Not on file documented as of this encounter Plan of Treatment Not on file documented as of this encounter Procedures Procedure Name Priority Date/Time Associated Diagnosis Comments TSH W/REFLEX Routine 09/02/2016 8:13 AM CDT COMPREHENSIVE METABOLIC PANEL Routine 09/02/2016 8:13 AM CDT CBC W/DIFF AUTOMATED Routine 09/02/2016 8:13 AM CDT documented in this encounter Results * TSH W/REFLEX (SNS) (09/02/2016 8:13 AM CDT) TSH 3.99 0.27 - 4.20 mIU/mL 09/02/2016 9:17 AM CDT [facility] Comment:FREE T4 NOT INDICATE D SERUM OR PLASMA SPECIMEN / Unknown 09/02/2016 8:13 AM CDT 09/02/2016 8:41 AM CDT us Generic Conversion Md [facility] Final R esult [facility] [address] [place] [address], [place] [phone] * (ABNORMAL) COMPREHENSIVE METABOLIC PANEL (09/02/2016 8:13 AM CDT) GLUCOSE 133(H) 70 - 99 mg/dL 09/02/2016 9:17 AM CDT [facility] BUN 13 8 - 23 mg/dL 09/02/2016 9:17 AM CDT [facility] CREATININE S/P/B 0.68 0.60 - 1.10 mg/dL 09/02/2016 9:17 AM CDT [facility] SODIUM S/P/B 144 136 - 145 mmol/L 09/02/2016 9:17 AM CDT [facility] POTASSIUM S/P/B 3.8 3.5 - 5.1 mmol/L 09/02/2016 9:17 AM CDT [facility] CHLORIDE S/P/B 103 98 - 107 mmol/L 09/02/2016 9:17 AM CDT [facility] CO2 26 22 - 29 mmol/L 09/02/2016 9:17 AM CDT [facility] BILIRUBIN TOTAL S/P/B 0.3 0.2 - 1.2 mg/dL 09/02/2016 9:17 AM CDT [facility] CALCIUM S/P/B 8.7 8.6 - 10.2 mg/dL 09/02/2016 9:17 AM CDT [facility] ALKALINE PHOSPHATASE S/P/B 102 35 - 104 U/L 09/02/2016 9:17 AM CDT [facility] AST 14 0 - 32 U/L 09/02/2016 9:17 AM T [facility] TOTAL PROTEIN S/P/B 7.0 6.4 - 8.3 g/dL 09/02/2016 9:17 AM T [facility] ALBUMIN S/P/B 4.2 3.5 - 5.2 g/dL 09/02/2016 9:17 AM T [facility] ALT 13 0 - 33 U/L 09/02/2016 9:17 AM CDT [facility] GLOBULIN 2.8 2.3 - 3.6 g/dL 09/02/2016 9:17 AM T [facility] A/G RATIO 1.5 1.0 - 2.0 09/02/2016 9:17 AM T [facility] ANION GAP 19 8 - 20 09/02/2016 9:17 AM T [facility] EGFR NON-AFR. AMER. >60 >60 mL/min/1.7 3m'2 09/02/2016 9:17 AM CDT [facility] EGFR AFR. AMER. >60 >60 mL/min/1.7 3m'2 09/02/2016 9:17 AM CDT [facility] Comment: NOTE: eGFR is not calculated for patients <18 years of age. This is an estimated GFR (CKD EPI) and should not be used for calculating drug doses. 09/02/2016 8:13 AM CDT 09/02/2016 8:41 AM CDT us Generic Conversion Md [facility] Final R esult [facility] [address] [place] [address], * (ABNORMAL) CBC W/DIFF AUTOMATED (09/02/2016 8:13 AM CDT) WBC 9.4 4.8 - 10.8 X10'3/uL 09/02/2016 8:58 AM CDT [facility] RBC 4.72 4.20 - 5.40 X10'6/uL 09/02/2016 8:58 AM CDT [facility] HGB 12.8 12.0 - 16.0 g/dL 09/02/2016 8:58 AM CDT [facility] HCT 39.5 38.0 - 48.0 % 09/02/2016 8:58 AM CDT [facility] MCV 83.7 81.0 - 99.0 fL 09/02/2016 8:58 AM CDT [facility] MCH 27.1 27.0 - 31.0 pg 09/02/2016 8:58 AM CDT [facility] MCHC 32.4 32.0 - 36.0 g/dL 09/02/2016 8:58 AM CDT [facility] RDW 13.6 11.5 - 14.5 % 09/02/2016 8:58 AM CDT [facility] PLT 214 130 - 400 X10'3/uL 09/02/2016 8:58 AM CDT [facility] MPV 9.7 9.3 - 12.2 fL 09/02/2016 8:58 AM CDT [facility] DIFFERENTIAL TYPE AUTOMATED 09/02/2016 8:58 AM CDT [facility] NEUTROPHILS % 66.7(H) 43.0 - 65.0 % 09/02/2016 8:58 AM CDT [facility] LYMPHOCYTES % 21.1 20.0 - 46.0 % 09/02/2016 8:58 AM CDT [facility] MONOCYTES % 8.0 5.0 - 12.0 % 09/02/2016 8:58 AM CDT [facility] EOSINOPHILS 3.4(H) 1.0 - 3.0 % 09/02/2016 8:58 AM CDT [facility] BASOPHILS 0.3 0.0 - 1.0 % 09/02/2016 8:58 AM CDT [facility] IMMATURE GRANS % 0.5 0.0 - 1.0 % 09/02/2016 8:58 AM CDT [facility] 09/02/2016 8:13 AM CDT 09/02/2016 8:41 AM CDT us Generic Conversion Md [facility] Final R esult [facility] [address] [place] [address], documented in this encounter Visit Diagnoses Diagnosis Noninfective gastroenteritis and colitis Other and unspecified noninfectious gastroenteritis and colitis documented in this encounter Care Teams Sewing Machine Repairer Helper Relationship Specialty Start Date End Date NateDane DO PCP - General FAMILY PRACTICE 05/15/16 02/11/17 Deisi Andrews MD [address] [place] [address] PCP - General FAMILY PRACTICE 02/13/17 03/10/17 Heber Huynh MD PCP - General 03/11/17 06/14/17 Deisi Andrews MD [address] [place] [address] PCP - General FAMILY PRACTICE 06/15/17 10/14/19 Asa Mcnamara MD [address] [facility]. [facility] [address] [place] [address] Stephen Marine Steam Fitter Helper CARDIOVASCULAR DISEASE 05/15/16 documented as of this encounter
--- OUTSIDE RECORDS SUMMARY | 2024-11-12 04:48 | XMS_ITS | Encounter Summary ---
Author Organization [facility] Address [address] [facility] [place] [address] [place] [address] Care Team Providers Care Elevator Constructor Supervisor Name Role Phone Asa Mcnamara MD Unavailable [phone] , Heber Trinidad MD Primary Care Provider Unavailable Encounter Details Date Type Department Care Team (Late st Contact Info) Description 03/11/2017 Orders Only [facility] [address] [place] [address] Asa Mcnamara MD [address] [address] Social History Tobacco Use Types Packs/Day Years Used Date Smoking Tobacco: Every Day Cigarettes Smokeless Tobacco: Never Comments:3 cig a day Alcohol Use Standard Drinks/Week Comments No 0 (1 standard drink = 0.6 oz pur e alcohol) Comments Unknown Sex and Gender Information Value Date Recorded Sex Assigned at Female 12/06/2019 3:36 PM BLANKET WEAVER Legal Sex Female 5:20 PM CDT Gender Identity Female 12/06/2019 3:36 PM BLANKET WEAVER Sexual Orientation Straight 12/06/2019 3: 36 PM BLANKET WEAVER Occupation Industry Job Start Date Job End Date Not on file Not on file Not on file Not on file documented as of this encounter Plan of Treatment Not on file documented as of this encounter Procedures Procedure Name Priority Date/Time Associated Diagnosis Comments US AORTA DUPLEX COMP 03/11/2017 9:36 AM CDT documented in this encounter Results * US AORTA DUPLEX COMP (03/11/2017 9:36 AM CDT) Anatomical Region Laterality Modality Abdomen Ultrasound 03/11/2017 9:36 AM CDT Narrative 03/11/2017 12:00 AM CDT ?[id number] DUPLEX IMAGING ? VASCULAR LAB Pat.Name: ??RODY CRUZ ? Pat.ID: ?[id number] ? St.Date: ?? 03/11/2017 ? Exam Time: 9:36:00 AM ? Study Type:SCOTTIE VS Aorta IVC Iliac Duplex DILEEP ??Age: ??1960,56Y ? Sex: ? FEMALE ?Sonogrphr: Elida Baldwin RVT ? Pat. Stat.:Outpatient ? History / Clinical:Follow up BCIA stents, claudic. ??SEE HX ON ART KENZIE EXAM DONE TODAY. Procedures:Qureshi scale, Color Doppler imaging, Doppler Spectral Analysis Race: ?C ? ++++++++++++++++++++++++++++++++++++ SUMMARY: ++++++++++++++++++++++++++++++++++++ Gail Stenosis Criteria: ?50-75% = Ratio 2.0-4.0 and/or PSV 200-300; ? 75-99% = Ratio >4.0 and/or PSV >300 Aorta-iliac duplex: ??Aorta mild plaque, triphasic with normal velocity. ?? Right common iliac stented, mild plaque, triphasic with elevated PSV 210 cm/s, ratio 2.2; ?? right external iliac mild plaque, triphasic with normal velocity. Left common iliac stented, no evident narrowing, triphasic with normal velocity; ?? left external iliac mild plaque, triphasic with normal velocity. Compared to previous exam done 07/2016 , there is no significant change. ??Suspect previously reported upper aorta narrowing is the right proximal stent segment measured on this exam. SEE ARTERIAL DOPPLER KENZIE EXAM DONE TODAY. CONCLUSION: ? Right: ??Moderate, 50-75% stenosis at the common iliac. ??Mild instent stenosis. Mild, <50% stenosis at the external iliac. Left: ??No evident stenosis at the common iliac. ??Mild, <50% stenosis at the external iliac. Patent stent. ++++++++++++++++++++++++++++++++++++ MEASUREMENTS: ++++++++++++++++++++++++++++++++++++ ?DOPPLER Supra AO ?? Supra AO PSV ?74 cm/s ? Juxta AO ?? Juxta AO PSV ?64 cm/s ? Dist AO ?? Dist AO PSV ? 94 cm/s ? Rt Dist External Iliac ?? Dist External I ?? 119 cm/s ? Rt Mid External Iliac ?? Mid External Il ?? 115 cm/s ? Rt Prox External Iliac ?? External Iliac ?113 cm/s ? Lt Dist External Iliac ?? Lt Dist Externa ?? 140 cm/s ? Lt Prox External Iliac ?? External Iliac ?117 cm/s ? Iliac ?? Right Iliac Pro ?93 centimeter/second Right Iliac Dis ?93 centimeter/second Right Iliac Pro ?93 centimeter/second Right Iliac Dis ? 0 ? Right Iliac Dis ?93 centimeter/second ?GRAFT Prox Stent LCIA STENT Prox Stent PSV ?? 131 cm/s ? Prox Stent RCIA STENT Prox Stent PSV ?? 210 cm/s ? Mid Stent LCIA STENT Mid Stent PSV ? 77 cm/s ? Mid Stent RCIA STENT Mid Stent PSV ?167 cm/s ? Dist Stent LCIA STENT Dist Stent PSV ?? 136 cm/s ? Dist Stent RCIA STENT Dist Stent PSV ?? 175 cm/s ? Dist to Stent LCIA STENT Dist to Stent P ?? 143 cm/s ? Dist to Stent RCIA STENT Dist to Stent P ?? 117 cm/s ? Signed 03/12/2017 08:16 PM Caesar Aguayo M.D. Procedure Note Caesar Aguayo MD - 03/12/2017 [id number] DUPLEX IMAGING VASCULAR LAB Pat.Name: RODY CRUZ Pat.ID: [id number] St.Date: 03/11/2017 Exam Time: 9:36:00 AM Study Type:SCOTTIE VS Aorta IVC Iliac Duplex DILEEP Age: 2 1960,56Y Sex: FEMALE Sonogrphr: Elida Baldwin RVT Pat. Stat.:Outpatient History / Clinical:Follow up BCIA stents, claudic. SEE HX ON ART KENZIE EXAM DONE TODAY. Procedures:Qureshi scale, Color Doppler imaging, Doppler Spectral Analysis Race: C ++++++++++++++++++++++++++++++++++++ SUMMARY: ++++++++++++++++++++++++++++++++++++ Gail Stenosis Criteria: 50-75% = Ratio 2.0-4.0 and/or PSV 200-300; 75-99% = Ratio >4.0 and/or PSV >300 Aorta-iliac duplex: Aorta mild plaque, triphasic with normal velocity. Right common iliac stented, mild plaque, triphasic with elevated PSV 210 cm/s, ratio 2.2; right external iliac mild plaque, triphasic with normal velocity. Left common iliac stented, no evident narrowing, triphasic with normal velocity; left external iliac mild plaque, triphasic with normal velocity. Compared to previous exam done 07/2016 , there is no significant change. Suspect previously reported upper aorta narrowing is the right proximal stent segment measured on this exam. SEE ARTERIAL DOPPLER KENZIE EXAM DONE TODAY. CONCLUSION: Right: Moderate, 50-75% stenosis at the common iliac. Mild instent stenosis. Mild, <50% stenosis at the external iliac. Left: No evident stenosis at the common iliac. Mild, <50% stenosis at the external iliac. Patent stent. ++++++++++++++++++++++++++++++++++++ MEASUREMENTS: ++++++++++++++++++++++++++++++++++++ DOPPLER Supra AO Supra AO PSV 74 cm/s Juxta AO Juxta AO PSV 64 cm/s Dist AO Dist AO PSV 94 cm/s Rt Dist External Iliac Dist External I 119 cm/s Rt Mid External Iliac Mid External Il 115 cm/s Rt Prox External Iliac External Iliac 113 cm/s Lt Dist External Iliac Lt Dist Externa 140 cm/s Lt Prox External Iliac External Iliac 117 cm/s Iliac Right Iliac Pro 93 centimeter/second Right Iliac Dis 93 centimeter/second Right Iliac Pro 93 centimeter/second Right Iliac Dis 0 Right Iliac Dis 93 centimeter/second GRAFT Prox Stent LCIA STENT Prox Stent PSV 131 cm/s Prox Stent RCIA STENT Prox Stent PSV 210 cm/s Mid Stent LCIA STENT Mid Stent PSV 77 cm/s Mid Stent RCIA STENT Mid Stent PSV 167 cm/s Dist Stent LCIA STENT Dist Stent PSV 136 cm/s Dist Stent RCIA STENT Dist Stent PSV 175 cm/s Dist to Stent LCIA STENT Dist to Stent P 143 cm/s Dist to Stent RCIA STENT Dist to Stent P 117 cm/s Signed 03/12/2017 08:16 PM Caesar Aguayo M.D. us Asa Mcnamara MD ULTRASOUND Final Result documented in this encounter Visit Diagnoses Not on filedocumented in this encounter Care Teams Elevator Constructor Supervisor Relationship Specialty Start Date End Date Heber Adorno MD PCP - General 03/11/17 06/14/17 Asa Mcnamara MD Three [facility]. [address] [place] [address] [place] Kst Operator CARDIOVASCULAR DISEASE 05/15/16 documented as of this encounter
--- OUTSIDE RECORDS SUMMARY | 2024-11-12 04:48 | XMS_ITS | Encounter Summary ---
Author Organization [facility] Address [facility]. [place], [place] [address] [place] [address] Care Team Providers Care Billet Recorder Name Role Phone Dane Sullivan DO Primary Care Provider [phone] Asa Mcnamara MD Unavailable [phone] Deisi Andrews MD Primary Care Provider [phone] Heber Adorno MD Primary Care Provider Unavailable Deisi Andrews MD Primary Care Provider [phone] Encounter Details Date Type Department Care Team (Latest Contact Info) Description 01/01/2017 Abstract [facility] Social History Tobacco Use Types Packs/Day Years Used Date Smoking Tobacco: Every Day Cigarettes Smokeless Tobacco: Never Comments:3 cig a day Alcohol Use Standard Drinks/Week Comments No 0 (1 standard drink = 0.6 oz pur e alcohol) Comments Unknown Sex and Gender Information Value Date Recorded Sex Assigned at Female 12/06/2019 3:36 PM INFORMATION ASSURANCE SPECIALIST Legal Sex Female 5:20 PM CDT Gender Identity Female 12/06/2019 3:36 PM INFORMATION ASSURANCE SPECIALIST Sexual Orientation Straight 12/06/2019 3: 36 PM INFORMATION ASSURANCE SPECIALIST Occupation Industry Job Start Date Job End Date Not on file Not on file Not on file Not on file documented as of this encounter Plan of Treatment Not on file documented as of this encounter Visit Diagnoses Not on filedocumented in this encounter Care Teams Billet Recorder Relationship Specialty Start Date End Date Dane Sullivan DO PCP - General FAMILY PRACTICE 05/15/16 02/11/17 Deisi Andrews MD [address] [place] [address] PCP - General FAMILY PRACTICE 02/13/17 03/10/17 Heber Adorno MD PCP - General 03/11/17 06/14/17 Deisi Andrews MD [address] [place] [address] PCP - General FAMILY PRACTICE 06/15/17 10/14/19 Asa Mcnamara MD [facility] [place] [facility] [address] [place] [address] Stephen [employer] Open Stack Administrator CARDIOVASCULAR DISEASE 05/15/16 documented as of this encounter
--- OUTSIDE RECORDS SUMMARY | 2024-11-12 04:48 | XMS_ITS | Encounter Summary ---
Author Organization [facility] Address [address] [facility] [place] [address] [place] [address] Care Team Providers Care Supervisor Sunglasses Name Role Phone Asa Mcnamara MD Unavailable [phone] Heber Adorno MD Primary Care Provider Unavailable Deisi Andrews MD Primary Care Provider [phone] Encounter Details Date Type Department Care Team (Late st Contact Info) Description 03/11/[address] [facility] [place], [place] [id number] Asa Mcnamara MD [facility]. [address] [place], [place] [id number] Social History Tobacco Use Types Packs/Day Years Used Date Smoking Tobacco: Every Day Cigarettes Smokeless Tobacco: Never Comments:3 cig a day Alcohol Use Standard Drinks/Week Comments No 0 (1 standard drink = 0.6 oz pur e alcohol) Comments Unknown Sex and Gender Information Value Date Recorded Sex Assigned at Female 12/06/2019 3:36 PM COPYRIGHT CLERK Legal Sex Female 5:20 PM CDT Gender Identity Female 12/06/2019 3:36 PM COPYRIGHT CLERK Sexual Orientation Straight 12/06/2019 3: 36 PM COPYRIGHT CLERK Occupation Industry Job Start Date Job End Date Not on file Not on file Not on file Not on file documented as of this encounter Plan of Treatment Not on file documented as of this encounter Visit Diagnoses Diagnosis Peripheral vascular disease (CMS/HCC) Peripheral vascular disease, unspecified documented in this encounter Care Teams Supervisor Sunglasses Relationship Specialty Start Date End Date Heber Adorno MD PCP - General 03/11/17 06/14/17 Deisi Andrews MD [address] [place] [address] PCP - General FAMILY PRACTICE 06/15/17 10/14/19 Asa Mcnamara MD [facility]. [facility] [address] [place] [address] [place] Dental Director CARDIOVASCULAR DISEASE 05/15/16 documented as of this encounter
--- OUTSIDE RECORDS SUMMARY | 2024-11-12 04:48 | XMS_ITS | Encounter Summary ---
Author Organization [facility] Address [facility] [place] [address] [place] [address] Care Team Providers Care Oracle Hrms Developer Name Role Phone Asa Mcnamara MD Unavailable [phone] Heber Adorno MD Primary Care Provider Unavailable Encounter Details Date Type Department Care Team (Late st Contact Info) Description 03/11/2017 Orders Only [facility] AT [address] [place] [address] Asa Mcnamara MD [address] [address] Social History Tobacco Use Types Packs/Day Years Used Date Smoking Tobacco: Every Day Cigarettes Smokeless Tobacco: Never Comments:3 cig a day Alcohol Use Standard Drinks/Week Comments No 0 (1 standard drink = 0.6 oz pur e alcohol) Comments Unknown Sex and Gender Information Value Date Recorded Sex Assigned at Female 12/06/2019 3:36 PM 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 Legal Sex Female 5:20 PM CDT Gender Identity Female 12/06/2019 3:36 PM 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 OPERATOR Sexual Orientation Straight 12/06/2019 3: 36 PM 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 OPERATOR Occupation Industry Job Start Date Job End Date Not on file Not on file Not on file Not on file documented as of this encounter Plan of Treatment Not on file documented as of this encounter Procedures Procedure Name Priority Date/Time Associated Diagnosis Comments ULTRASOUND GENERIC 03/11/2017 11 :52 AM CDT documented in this encounter Results * ULTRASOUND GENERIC (03/11/2017 11:52 AM CDT) 03/11/2017 11:5 2 AM CDT Narrative [facility] - 03/11/2017 12:00 AM CDT ?ARTERIAL DOPPLER - KENZIE ?BILATERAL LOWER EXTREMITY ? VASCULAR LAB Pat.Name: ??RODY CRUZ ? Pat.ID: ?[id number] ? St.Date: ?? 03/11/2017 ? Exam Time: 11:52:00 AM ? Study Type:SCOTTIE VS Arterial Doppler Legs DILEEP ??Age: ??1960,56Y ? Sex: ? FEMALE ?Sonogrphr: Elida Richardsk, RVT ? Pat. Stat.:Outpatient ? History / Clinical:Follow up BCIA stents, stella; ?? Prior 07/2016 ABIs Rt=1.16, Lt=1.11, post exercise drop .10/.08 (rt/lt); ??BCIA stents 06/2016; ??PMH htn, hld, dm, copd, cva, back-spine, smoker, obese BMI 40 Procedures:Doppler waveforms, Digit PPG, Systolic Pressures w/KENZIE Race: ?C ? ++++++++++++++++++++++++++++++++++++ SUMMARY: ++++++++++++++++++++++++++++++++++++ Gail KENZIE Criteria: ?>1.30 = falsely elevated, calcified vessels; ?1.00-1.29 = no signif ischemia at rest ; ?.80-.99 = mild PAD, asymptomatic; ?.50-.79 = moderate PAD, claudication; ?<.50 = severe PAD, rest pain; ?<.30 = critical PAD, necrosis, poor healing ? (Digits: ??DBI >.60 Normal; ?? <.60 Abnormal) ? (Positive Stress eval: ??KENZIE decrease of >.20 or >20% pressure drop) Right leg: ??Common Femoral waveform is triphasic, medium amplitude; Popliteal triphasic, medium amplitude; ??Posterior Tibial triphasic, medium amplitude with KENZIE 1.15 ; ??DP/Anterior Tibial triphasic, medium amplitude with KENZIE 1.19 . ??Digit flow by PPG is medium amplitude with DBI 0.938 . Left leg: ??Common Femoral waveform is triphasic, high amplitude; Popliteal triphasic, medium amplitude; ??Posterior Tibial triphasic, medium amplitude with KENZIE 1.27 ; ??DP/Anterior Tibial triphasic, medium amplitude with KENZIE 1.1 . ??Digit flow by PPG is medium amplitude with DBI 0.938 . Post ambulation exercise stress test, right KENZIE decreases .21; ??left KENZIE decreases .17. ??Patient maintained exercise for 3.75 minutes, and experienced bilat post thigh pain. Compared to previous exam done 07/2016 , there is no significant change, slight drop in post exercise ABIs. SEE DUPLEX SCAN REPORT AORTO -ILIAC STENTS DONE TODAY. CONCLUSION: ?? KENZIE right leg 1.2 , with toe index 0.938 , in the range of no ischemia. ?? KENZIE left leg 1.3, with toe index 0.938 , in the range of no ischemia. Exercise stress test right leg is positive with significant drop in KENZIE, suggestive of possible stenosis and claudication. Exercise stress test left leg is negative, indicating no flow significant stenosis. Recommend follow up in 6 months or as symptoms warrant. ++++++++++++++++++++++++++++++++++++ MEASUREMENTS: ++++++++++++++++++++++++++++++++++++ ?PRESSURES Right Brachial ?? Brach P ? 96 mmHg ? Right Ankle DP ?? AnkleDP P ?114 mmHg ? Right Ankle PT ?? AnklePT P ?110 mmHg ? Right Great Toe ?? GreatToe P ?90 mmHg ? Right KENZIE PT ?? KENZIE PT ?1.15 ? Right KENZIE DP ?? KENZIE DP ?1.19 ? Right TBI ?? TBI ?0.938 ? Left Brachial ?? Brach P ? 92 mmHg ? Left Ankle DP ?? AnkleDP P ?106 mmHg ? Left Ankle PT ?? AnklePT P ?122 mmHg ? Left Great Toe ?? GreatToe P ?90 mmHg ? Left KENZIE PT ?? KENZIE PT ?1.27 ? Left KENZIE DP ?? KENZIE DP ? 1.1 ? Left TBI ?? TBI ?0.938 ?STRESS 1 Minute ?? 1 Min ARM ?100 mmHg ?1 Min KENZIE ? 0.94 ? 1 Min Ankle ? 94 mmHg ?1 Min LT KENZIE ? 1.1 ? 1 Min LT Ankle ?? 110 mmHg ? Signed 03/12/2017 08:22 PM Caesar Aguayo M.D. Procedure Note Caesar Aguayo MD - 03/12/2017 ARTERIAL DOPPLER - KENZIE BILATERAL LOWER EXTREMITY VASCULAR LAB Pat.Name: RODY CRUZ Pat.ID: [id number] St.Date: 03/11/2017 Exam Time: 11:52:00 AM Study Type:SCOTTIE VS Arterial Doppler Legs DILEEP Age: 2 1960,56Y Sex: FEMALE Sonogrphr: Elida Baldwin RVT Pat. Stat.:Outpatient History / Clinical:Follow up BCIA stents, stella; Prior 07/2016 ABIs Rt=1.16, Lt=1.11, post exercise drop .10/.08 (rt/lt); BCIA stents 06/2016; PMH htn, hld, dm, copd, cva, back-spine, smoker, obese BMI 40 Procedures:Doppler waveforms, Digit PPG, Systolic Pressures w/KENZIE Race: C ++++++++++++++++++++++++++++++++++++ SUMMARY: ++++++++++++++++++++++++++++++++++++ Gail KENZIE Criteria: >1.30 [...] Right leg: Common Femoral waveform is triphasic, medium amplitude; Popliteal triphasic, medium amplitude; Posterior Tibial triphasic, medium amplitude with KENZIE 1.15 ; DP/Anterior Tibial triphasic, medium amplitude with KENZIE 1.19 . Digit flow by PPG is medium amplitude with DBI 0.938 . Left leg: Common Femoral waveform is triphasic, high amplitude; Popliteal triphasic, medium amplitude; Posterior Tibial triphasic, medium amplitude with KENZIE 1.27 ; DP/Anterior Tibial triphasic, medium amplitude with KENZIE 1.1 . Digit flow by PPG is medium amplitude with DBI 0.938 . Post ambulation exercise stress test, right KENZIE decreases .21; left KENZIE decreases .17. Patient maintained exercise for 3.75 minutes, and experienced bilat post thigh pain. Compared to previous exam done 07/2016 , there is no significant change, slight drop in post exercise ABIs. SEE DUPLEX SCAN REPORT AORTO -ILIAC STENTS DONE TODAY. CONCLUSION: KENZIE right leg 1.2 , with toe index 0.938 , in the range of no ischemia. KENZIE left leg 1.3, with toe index 0.938 , in the range of no ischemia. Exercise stress test right leg is positive with significant drop in KENZIE, suggestive of possible stenosis and claudication. Exercise stress test left leg is negative, indicating no flow significant stenosis. Recommend follow up in 6 months or as symptoms warrant. ++++++++++++++++++++++++++++++++++++ MEASUREMENTS: ++++++++++++++++++++++++++++++++++++ PRESSURES Right Brachial Brach P 96 mmHg Right Ankle DP AnkleDP P 114 mmHg Right Ankle PT AnklePT P 110 mmHg Right Great Toe GreatToe P 90 mmHg Right KENZIE PT KENZIE PT 1.15 Right KENZIE DP KENZIE DP 1.19 Right TBI TBI 0.938 Left Brachial Brach P 92 mmHg Left Ankle DP AnkleDP P 106 mmHg Left Ankle PT AnklePT P 122 mmHg Left Great Toe GreatToe P 90 mmHg Left KENZIE PT KENZIE PT 1.27 Left KENZIE DP KENZIE DP 1.1 Left TBI TBI 0.938 STRESS 1 Minute 1 Min ARM 100 mmHg 1 Min KENZIE 0.94 1 Min Ankle 94 mmHg 1 Min LT KENZIE 1.1 1 Min LT Ankle 110 mmHg Signed 03/12/2017 08:22 PM Caesar Aguayo M.D. us Asa Mcnamara MD [facility] Final Resu lt [facility] documented in this encounter Visit Diagnoses Not on filedocumented in this encounter Care Teams Oracle Hrms Developer Relationship Specialty Start Date End Date Heber Adorno MD PCP - General 03/11/17 06/14/17 Asa Mcnamara MD [facility] [address] [place] [address] [place] [employer] Agent CARDIOVASCULAR DISEASE 05/15/16 documented as of this encounter
--- OUTSIDE RECORDS SUMMARY | 2024-11-12 04:48 | XMS_ITS | Encounter Summary ---
Author Organization [facility] Address [facility] [place] [address] [place] [address] Care Team Providers Care Sales Representative Public Utilities Name Role Phone Asa Mcnamara MD Unavailable [phone] , Heber Trinidad MD Primary Care Provider Unavailable Reason for Visit * Reason Onset Date Comments Medication Request 04/22/2017 new meds, fur osemide and potassium Encounter Details Date Type Department Care Team (Late st Contact Info) Description 04/22/2017 Telephone [facility] AT [address] [address] Asa Mcnamara MD [id number] [place] [address] Medication Request (new meds, furosemide and potassium) Social History Tobacco Use Types Packs/Day Years Used Date Smoking Tobacco: Every Day Cigarettes Smokeless Tobacco: Never Alcohol Use Standard Drinks/Week Comments No 0 (1 standard drink = 0.6 oz pur e alcohol) Comments Unknown Sex and Gender Information Value Date Recorded Sex Assigned at Female 12/06/2019 3:36 PM FOLDER SEAMER Legal Sex Female 5:20 PM CDT Gender Identity Female 12/06/2019 3:36 PM FOLDER SEAMER Sexual Orientation Straight 12/06/2019 3: 36 PM FOLDER SEAMER Occupation Industry Job Start Date Job End Date Not on file Not on file Not on file Not on file documented as of this encounter Progress Notes * Layla Quiles CMA - 04/22/2017 5:[address] Mcnamara called and asked that we add furosemide 20mg 1 qam for seven days and potassium [id number] 1 qam, for seven days. He will write a rx for hydrocodone acetaminophen 5-325mg 1 qid for seven day, no refill. Furosemide and potassium chloride sent to pharmacy. ki documented in this encounter Plan of Treatment Not on file documented as of this encounter Visit Diagnoses Not on filedocumented in this encounter Care Teams Sales Representative Public Utilities Relationship Specialty Start Date End Date Heber Adoron MD PCP - General 03/11/17 06/14/17 Asa Mcnamara MD [address] [address] [place] Clinical Documentation Developer CARDIOVASCULAR DISEASE 05/15/16 documented as of this encounter
--- OUTSIDE RECORDS SUMMARY | 2024-11-12 04:48 | XMS_ITS | Encounter Summary ---
Author Organization [facility] Address [address] [place] [address] [place] [address] Care Team Providers Care Nursing Home Admissions Director Name Role Phone Asa Mcnamara MD Unavailable [phone] , Heber Trinidad MD Primary Care Provider Unavailable Encounter Details Date Type Department Care Team (Late st Contact Info) Description 04/22/2017 Orders Only [facility] AT [address] [phone] Asa Mcnamara MD [address] [phone] Social History Tobacco Use Types Packs/Day Years Used Date Smoking Tobacco: Every Day Cigarettes Smokeless Tobacco: Never Alcohol Use Standard Drinks/Week Comments No 0 (1 standard drink = 0.6 oz pur e alcohol) Comments Unknown Sex and Gender Information Value Date Recorded Sex Assigned at Female 12/06/2019 3:36 PM AUTO PARKER Legal Sex Female 5:20 PM CDT Gender Identity Female 12/06/2019 3:36 PM AUTO PARKER Sexual Orientation Straight 12/06/2019 3: 36 PM AUTO PARKER Occupation Industry Job Start Date Job End Date Not on file Not on file Not on file Not on file documented as of this encounter Plan of Treatment Not on file documented as of this encounter Procedures Procedure Name Priority Date/Time Associated Diagnosis Comments GLUCOSE BLOOD, MONITOR DEVICE Routine 04/22/2017 9:51 AM CDT documented in this encounter Results * (ABNORMAL) GLUCOSE BLOOD, MONITOR DEVICE (04/22/2017 9:51 AM CDT) GLUCOSE POC 180(H) 70 - 99 mg/dL [facility] 04/22/2017 9:51 AM CDT 04/22/2017 9:09 PM CDT us Asa Mcnamara MD LABORATORY Final Result [facility] [address] [place] [address], documented in this encounter Visit Diagnoses Not on filedocumented in this encounter Care Teams Nursing Home Admissions Director Relationship Specialty Start Date End Date Heber Adorno MD PCP - General 03/11/17 06/14/17 Asa Mcnamara MD [facility]. [facility] [address] [place] [address] [employer] Account Manager CARDIOVASCULAR DISEASE 05/15/16 documented as of this encounter
--- OUTSIDE RECORDS SUMMARY | 2024-11-12 04:48 | XMS_ITS | Encounter Summary ---
Author Organization [facility] Address [facility] [facility]. [place], [place] [address] [place] [address] Care Team Providers Care Car Restorer Name Role Phone Dane Sullivan DO Primary Care Provider [phone] Asa Mcnamara MD Unavailable [phone] Deisi Andrews MD Primary Care Provider [phone] Heber Adorno MD Primary Care Provider Unavailable Deisi Andrews MD Primary Care Provider [phone] Encounter Details Date Type Department Care Team (Latest Contact Info) Description 12/04/2016 Abstract [facility] Social History Tobacco Use Types Packs/Day Years Used Date Smoking Tobacco: Every Day Cigarettes Smokeless Tobacco: Never Comments:3 cig a day Alcohol Use Standard Drinks/Week Comments No 0 (1 standard drink = 0.6 oz pur e alcohol) Comments Unknown Sex and Gender Information Value Date Recorded Sex Assigned at Female 12/06/2019 3:36 PM PARKS AND RECREATION WORKER Legal Sex Female 5:20 PM CDT Gender Identity Female 12/06/2019 3:36 PM PARKS AND RECREATION WORKER Sexual Orientation Straight 12/06/2019 3: 36 PM PARKS AND RECREATION WORKER Occupation Industry Job Start Date Job End Date Not on file Not on file Not on file Not on file documented as of this encounter Plan of Treatment Not on file documented as of this encounter Visit Diagnoses Not on filedocumented in this encounter Care Teams Car Restorer Relationship Specialty Start Date End Date Dane Sullivan DO PCP - General FAMILY PRACTICE 05/15/16 02/11/17 Deisi Andrews MD [address] [place] [address] PCP - General FAMILY PRACTICE 02/13/17 03/10/17 Heber Adorno MD PCP - General 03/11/17 06/14/17 Deisi Andrews MD [address] [place] [address] PCP - General FAMILY PRACTICE 06/15/17 10/14/19 Asa Mcnamara MD [facility] [address] [place] [address] [place] [facility] [employer] Receptionist CARDIOVASCULAR DISEASE 05/15/16 documented as of this encounter
--- OUTSIDE RECORDS SUMMARY | 2024-11-12 04:48 | XMS_ITS | Encounter Summary ---
Author Organization [facility] Address [address] [facility]. [place], [place] [address] [place] [address] Care Team Providers Care Cleater Name Role Phone Dane Sullivan DO Primary Care Provider + [phone] Asa Mcnamara MD Unavailable [phone] Deisi Andrews MD Primary Care Provider [phone] Heber Adorno MD Primary Care Provider Unavailable Deisi Andrews MD Primary Care Provider [phone] Encounter Details Date Type Department Care Team (Late st Contact Info) Description 09/02/2016 Abstract [facility] Family Medicine - [address] [phone] Dane Sullivan DO [address] [id number] Social History Tobacco Use Types Packs/Day Years Used Date Smoking Tobacco: Every Day Cigarettes Smokeless Tobacco: Never Comments:3 cig a day Alcohol Use Standard Drinks/Week Comments No 0 (1 standard drink = 0.6 oz pur e alcohol) Comments Unknown Sex and Gender Information Value Date Recorded Sex Assigned at Female 12/06/2019 3:36 PM DEPOSIT CLERK Legal Sex Female 5:20 PM CDT Gender Identity Female 12/06/2019 3:36 PM DEPOSIT CLERK Sexual Orientation Straight 12/06/2019 3: 36 PM DEPOSIT CLERK Occupation Industry Job Start Date Job End Date Not on file Not on file Not on file Not on file documented as of this encounter Last Filed Vital Signs Vital Sign Reading Time Taken Comments Blood Pressure 132/77 09/02/2016 7:01 AM CDT Pulse 108 09/02/2016 7:01 AM CDT Temperature - - Respiratory Rate - - Oxygen Saturation - - Inhaled Oxygen Concentration - - Weight 101.6 kg (224 lb) 09/02/2016 7:01 AM CDT Height - - Body Mass Index 39.68 08/12/2016 1:37 PM CDT documented in this encounter Progress Notes * Dane Monsalve Sullivan, DO - 09/02/2016 7:00 AM CDT History of Present Illness HPI Free Text: cc: not feeling well started 6 weeks ago symptoms include body aches chills, diarrea, fatigue State diarrhea has been going on for 6 weeks denies any blood in stool she states all of this happened since quitting smoking while in [place], staying with friend has been using imodium, peptobismol she denies any wt loss Review of systems General: denies any fevers, chills. Gastrointestinal: as above Cardiovascular: Patient denies Chest pain, shortness of breath. Physical Exam General: Well-developed, well-nourished, in no acute distress. Eyes: Conjunctiva and lids: no swelling, erythema or discharge Oropharynx: normal without erythema, edema, exudate or lesions Neck: Supple without adenopathy, trachea midline Lungs: Clear to auscultation bilaterally without wheezing, rhonchi or crackles. No increase work ofbreathing or signs of respiratory distress Heart: Regular rate and rhythm without murmurs, clicks or bruits. Abdomen: Nondistended, Nontender. Neuro: grossly intact. Psych: Normal mood, normal affect Active Problems 1. Antiplatelet or antithrombotic long-term use (V58.63) (Z79.02) 2. Anxiety (300.00) (F41.9) 3. Arm fracture, left (818.0) (S42.302A) 4. Chest pain (786.50) (R07.9) 5. Chronic obstructive pulmonary disease (496) (J44.9) 6. Chronic pain (338.29) (G89.29) 7. Corns and callosity (700) (L84) 8. Cough (786.2) (R05) 9. Diabetes mellitus, type 2 (250.00) (E11.9) 10. Diarrhea (787.91) (R19.7) 11. Enteritis (558.9) (K52.9) 12. Flank pain (789.09) (R10.9) 13. History of CVA (cerebrovascular accident) (V12.54) (Z86.73) 14. Hyperlipidemia (272.4) (E78.5) 15. Hypertension (401.9) (I10) 16. Limb swelling (729.81) (M79.89) 17. Nausea with vomiting (787.01) (R11.2) 18. Overactive bladder (596.51) (N32.81) 19. Pes cavus (736.73) (M21.6X9) 20. Plantar warts (078.12) (B07.0) 21. Porokeratosis (757.39) (Q82.8) 22. Proteinuria (791.0) (R80.9) 23. Smoking (305.1) (F17.200) 24. Soft tissue mass (729.90) (M79.9) Past Medical History 1. History of arthritis (V13.4) (Z87.39) 2. History of diabetes mellitus (V12.29) (Z86.39) 3. History of hypertension (V12.59) (Z86.79) 4. History of stroke (V12.54) (Z86.73) 5. History of Needs flu shot (V04.81) (Z23) 6. History of URTI (acute upper respiratory infection) (465.9) (J06.9) Surgical History 1. History of Section 2. History of Cholecystectomy 3. History of Ear Pressure Equalization Tube, Insertion, Bilaterally 4. History of Tubal Ligation Family History Mother 1. Family history of Heart problem Father 2. Family history of diabetes mellitus (V18.0) (Z83.3) 3. Family history of lung disease (V19.8) (Z83.6) Sister 4. Family history of Alzheimer's disease (V17.2) (Z82.0) 5. Family history of cerebrovascular accident (V17.1) (Z82.3) 6. Family history of hypertension (V17.49) (Z82.49) 7. Family history of pancreatic cancer (V16.0) (Z80.0) Social History ?? Caffeine use (V49.89) (F15.90) ?? Current every day smoker (305.1) (F17.200) ?? No alcohol use ?? Single ?? Smoking (305.1) (F17.200) Immunizations Influenza --- Series1: [id number] Current Meds 1. Albuterol Sulfate (2.5 MG/3ML) 0.083% Inhalation Nebulization Solution; USE 1 UNIT DOSE IN NEBULIZER EVERY 4 TO 6 HOURS NEEDED; Therapy: 54Qeo5237 to (Last Rx:[id number]) Requested for: 77Mko7003 Ordered Rx By: Dane Sullivan; Dispense: 0 Days ; #:3 X 3 ML Plas Cont (60 Plas Conts); Refill: 1; For: Chronic obstructive pulmonary disease; ADAM = N; Verified Transmission to [facility]; Last Updated By: SpinTheCam; 06/09/2016 2:36:41 PM 2. Joleen 180 MG TABS; Therapy: (Recorded:[id number]) to Recorded Dispense: 0 Days ; #: Sufficient TABS; Refill: 0; ADAM = N; Record; Last Updated By: Jennifer Wayne; 07/14/2016 9:53:22 AM 3. Ambien 5 MG Oral Tablet; Therapy: (Recorded:[id number]) to Recorded Dispense: 0 Days ; #: Sufficient TABS; Refill: 0; ADAM = N; Record; Last Updated By: Jennifer Wayne; 07/14/2016 9:53:22 AM 4. AmLODIPine Besylate 5 MG Oral Tablet; TAKE 1 TABLET DAILY DIRECTED; Therapy: 25Sep2015 to (Evaluate:22Sep2016) Requested for: 63Mkw8314; Last Rx:[id number] Ordered Rx By: Dane Sullivan; Dispense: 90 Days ; #:90 Tablet; Refill: 1; For: Hypertension; ADAM = N; Verified Transmission to [facility]; Last Updated By: Marilee Walker; 04/01/2016 8:50:15 AM 5. Aspirin Low Dose TABS; Therapy: (Recorded:[id number]) to Recorded Dispense: 0 Days ; #: Sufficient Tablet; Refill: 0; ADAM = N; Record; Last Updated By: Jennifer Wayne; 07/14/2016 9:53:22 AM 6. Cilostazol 100 MG Oral Tablet; Therapy: (Recorded:[id number]) to Recorded Dispense: 0 Days ; #: Sufficient TABS; Refill: 0; ADAM = N; Record; Last Updated By: Jennifer Wayne; 07/14/2016 9:53:22 AM 7. ClonazePAM 1 MG Oral Tablet; TAKE 1 TABLET TWICE DAILY NEEDED; Therapy: 14Jul2016 to (Evaluate:12Sep2016) Requested for: 13Aug2016; Last Rx:[id number]; Status: ACTIVE - Renewal Denied Ordered Rx By: Dane Sullivan; Dispense: 30 Days ; #:60 Tablet; Refill: 0; For: Anxiety; ADAM = N; Record; Last Updated By: SpinTheCam; 08/13/2016 8:07:06 AM 8. Cyclobenzaprine HCl - 10 MG Oral Tablet; TAKE ONE TABLET BY MOUTH ONCE TO TWICE DAILY NEEDED; Therapy: 27Nov2015 to (Evaluate:48Ufh5244) Requested for: 16Apr2016; Last Rx:16Apr2016 Ordered Rx By: Dane Sullivan; Dispense: 30 Days ; #:60 TAB; Refill: 2; For: Chronic pain; ADAM = N; Verified Transmission to [facility]; Last Updated By: SpinTheCam; 04/16/2016 9:42:21 AM 9. FLUoxetine HCl - 20 MG Oral Capsule; TAKE 1 CAPSULE DAILY Requested for: 14Jul2016; Last Rx:[id number] Ordered Rx By: Dane Sullivan; Dispense: 90 Days ; #:90 Capsule; Refill: 1; For: Anxiety; ADAM = N; Verified Transmission to [facility]; Last Updated By: SpinTheCam; 07/14/2016 10:11:04 AM 10. Isosorbide Mononitrate ER 30 MG Oral Tablet Extended Release 24 Hour; Therapy: (Recorded:[id number]) to Recorded Dispense: 0 Days ; #: Sufficient TB24; Refill: 0; ADAM = N; Record; Last Updated By: Jennifer Wayne; 07/14/2016 9:53:22 AM 11. Losartan Potassium 100 MG Oral Tablet; TAKE ONE TABLET BY MOUTH ONCE DAILY; Therapy: 33Vhz9869 to (Evaluate:07Noe1203) Requested for: 67Tox4115; Last Rx:[id number] Ordered Rx By: Dane Sullivan; Dispense: 90 Days ; #:90 TAB; Refill: 2; For: Hypertension; ADAM = N; Verified Transmission to [facility]; Last Updated By: Marilee Walker; 04/01/2016 8:50:14 AM 12. MetFORMIN HCl - 500 MG Oral Tablet; TAKE ONE TABLET BY MOUTH TWICE DAILY WITH MEALS; Therapy: 10Mar2016 to (Evaluate:42Tul4262) Requested for: 62Kxy5920; Last Rx:[id number] Ordered Rx By: Dane Sullivan; Dispense: 30 Days ; #:180 TAB; Refill: 2; For: Health Maintenance; ADAM = N;Verified Transmission to [facility]; Last Updated By: Marilee Walker; 04/01/2016 8:50:14AM 13. Metoprolol Succinate ER 25 MG Oral Tablet Extended Release 24 Hour; Therapy: (Recorded:02Vjr3823) to Recorded Dispense: 0 Days ; #: Sufficient TB24; Refill: 0; ADAM = N; Record; Last Updated By: Jennifer Wyane; 07/14/2016 9:53:22 AM 14. Montelukast Sodium 10 MG Oral Tablet; TAKE 1 TABLET DAILY Requested for: 28Sob7716; Last Rx:[id number] Ordered Rx By: Dane Sullivan; Dispense: 90 Days ; #:90 Tablet; Refill: 1; For: Chronic obstructive pulmonary disease; ADAM = N; Verified Transmission to [facility]; Last Updated By: Marilee Walker; 04/01/2016 8:50:14 AM 15. Nitrostat 0.4 MG Sublingual Tablet Sublingual; Therapy: (Recorded:01Kuw5310) to Recorded Dispense: 0 Days ; #: Sufficient SUBL; Refill: 0; ADAM = N; Record; Last Updated By: Jennifer Wayne; 07/14/2016 9:53:22 AM 16. Percocet 5-325 MG Oral Tablet; Therapy: (Recorded:61Hse2966) to Recorded Dispense: 0 Days ; #: Sufficient TABS; Refill: 0; ADMA = N; Record; Last Updated By: Jennifer Wayne; 07/14/2016 9:53:22 AM 17. Pravastatin Sodium 40 MG Oral Tablet; TAKE ONE TABLET BY MOUTH ONCE DAILY; Therapy: 33Wjb7765 to (Evaluate:57Xfn9415) Requested for: 01Apr2016; Last Rx:12Feb2016 Ordered Rx By: Dane Sullivan; Dispense: 90 Days ; #:90 TAB; Refill: 2; For: Hyperlipidemia; ADAM = N; Verified Transmission to [facility]; Last Updated By: Marilee Walker; 04/01/2016 8:50:14 AM 18. PriLOSEC 20 MG Oral Capsule Delayed Release; Therapy: (Recorded:01Apr2016) to Recorded Dispense: 0 Days ; #: Sufficient CPDR; Refill: 0; ADAM = N; Record; Last Updated By: Marilee Walker; 04/01/2016 8:50:14 AM 19. Qvar 40 MCG/ACT Inhalation Aerosol Solution; INHALE ONE PUFF BY MOUTH TWICE DAILY; Therapy: 27Mar2016 to (Evaluate:23Sep2016) Requested for: 01Apr2016; Last Rx:27Mar2016 Ordered Rx By: Dane Sullivan; Dispense: 90 Days ; #:27 EA; Refill: 1; For: Chronic obstructive pulmonary disease; ADAM = N; Verified Transmission to [facility]; Last Updated By: Marilee Walker; 04/01/2016 8:50:14 AM 20. Ventolin HFA 108 (90 Base) MCG/ACT Inhalation Aerosol Solution; INHALE TWO PUFFS BY MOUTH EVERY 4 TO 6 HOURS NEEDED; Therapy: 81Rnj7554 to (Evaluate:23Tjn2190) Requested for: 31Aug2016; Last Rx:31Aug2016 Ordered Rx By: Dane Sullivan; Dispense: 17 Days ; #:18 Unit; Refill: 2; For: Chronic obstructive pulmonary disease; ADAM = N; Verified Transmission to [facility]; Last Updated By: Ezra Baez; 08/31/2016 9:47:43 AM 21. Xanax 1 MG Oral Tablet; Therapy: (Recorded:[id number]) to Recorded Dispense: 0 Days ; #: Sufficient TABS; Refill: 0; ADAM = N; Record; Last Updated By: Marilee Walker; 04/01/2016 8:50:14 AM Allergies 1. Halcion Recorded By: Jennifer Wayne; 04/22/2015 1:02:20 PM 2. Haldol Recorded By: Jennifer Wayne; 04/22/2015 1:02:20 PM 3. Penicillins Recorded By: Jennifer Wayne; 04/22/2015 1:02:20 PM 4. Risperidone and Related Recorded By: Jennifer Wayne; 04/22/2015 1:02:20 PM Vitals Recorded: 02Sep2016 07:01AM Temperature 97.4 F Heart Rate 108 Systolic 132 Diastolic 77 Weight 224 lb BMI Calculated 39.68 BSA Calculated 2.03 Assessment 1. Chronic diarrhea (787.91) (K52.9) Plan Chronic diarrhea 1. Ciprofloxacin HCl - 500 MG Oral Tablet; TAKE 1 TABLET TWICE DAILY Rx By: Dane Sullivan; Dispense: 3 Days ; #:6 Tablet; Refill: 0; For: Chronic diarrhea; ADAM = N; Sent To: [facility] Chronic diarrhea, Enteritis 2. CBC W Differential; Status:Hold For - Manual Activation; Requested for:02Sep2016; Perform:[facility]; Due:02Oct2016;Ordered; For:Chronic diarrhea, Enteritis; Ordered By:Dane Sullivan; 3. Compr Metabolic Prof ( CMP ); Status:Hold For - Manual Activation; Requested for:02Sep2016; Perform:[facility]; Due:02Oct2016;Ordered; For:Chronic diarrhea, Enteritis; Ordered By:Dane Sullivan; 4. O AND P, STOOL AND SMEAR; Status:Hold For - Manual Activation; Requested for:02Sep2016; Perform[facility]; Due:02Oct2016;Ordered; For:Chronic diarrhea, Enteritis; Ordered By:Dane Sullivan; 5. Stool C Diff Molecular Assay; Status:Hold For - Manual Activation; Requested for:02Sep2016; [facility]; Due:02Oct2016;Ordered; For:Chronic diarrhea, Enteritis; Ordered By:Dane Sullivan; 6. Stool Culture; Status:Hold For - Manual Activation; Requested for:02Sep2016; [facility]; Due:02Oct2016;Ordered; For:Chronic diarrhea, Enteritis; Ordered By:Dane Sullivan; Source: : Stool 7. TSH W Reflex Free T4; Status:Hold For - Manual Activation; Requested for:02Sep2016; [facility]; Due:02Oct2016;Ordered; For:Chronic diarrhea, Enteritis; Ordered By:Dane Sullivan; Enteritis 8. Stool Giard / Crypto Ag; Status:Hold For - Manual Activation; Requested for:02Sep2016; [facility]; Due:02Oct2016;Ordered; For:Enteritis; Ordered By:Dane Sullivan; Discussion/Summary Check labs to include stool culture ADAT, BRAT diet will treat empirically for traveler's diarrhea with FQ x 3 days RTC if not resolved after 1 week Signatures Electronically signed by : Dane Sullivan D.O.; Sep 02 2016 7:18AM DEPOSIT CLERK (Author) documented in this encounter Plan of Treatment Not on file documented as of this encounter Visit Diagnoses Not on filedocumented in this encounter Care Teams Cleater Relationship Specialty Start Date End Date Dane Sullivan DO PCP - General FAMILY PRACTICE 05/15/16 02/11/17 Deisi Andrews MD [address] [place] [address] PCP - General FAMILY PRACTICE 02/13/17 03/10/17 Heber Adorno MD PCP - General 03/11/17 06/14/17 Deisi Andrews MD [address] [place] [address] PCP - General FAMILY PRACTICE 06/15/17 10/14/19 Asa Mcnamara MD [facility] [address] [place] [address] [employer] Processor CARDIOVASCULAR DISEASE 05/15/16 documented as of this encounter
--- OUTSIDE RECORDS SUMMARY | 2024-11-12 04:48 | XMS_ITS | Encounter Summary ---
Author Organization [facility] Address [facility] [place], [place] [address] [place] [address] Care Team Providers Care Meter Installer Name Role Phone Tere Monae DO Primary Care Provider + [phone] Asa Mcnamara MD Unavailable [phone] Deisi Andrews MD Primary Care Provider [phone] Heber Adorno MD Primary Care Provider Unavailable Deisi Andrews MD Primary Care Provider [phone] Encounter Details Date Type Department Care Team (Latest Contact Info) Description 08/06/2016 Abstract [facility] Medical Group Heber Adorno MD Social History Tobacco Use Types Packs/Day Years Used Date Smoking Tobacco: Every Day Cigarettes Smokeless Tobacco: Never Alcohol Use Standard Drinks/Week Comments No 0 (1 standard drink = 0.6 oz pur e alcohol) Comments Unknown Sex and Gender Information Value Date Recorded Sex Assigned at Female 12/06/2019 3:36 PM VINEGAR MAKER Legal Sex Female 5:20 PM CDT Gender Identity Female 12/06/2019 3:36 PM VINEGAR MAKER Sexual Orientation Straight 12/06/2019 3: 36 PM VINEGAR MAKER 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 [address] Patient: RODY CRUZ [facility] Rec#: [id number] Birthdate: 1960 Admit/Svce Date: 08/05/2016 Disch Date: Attending Md: ASA MCNAMARA MD CHART DOCUMENT [id number] DUPLEX IMAGING VASCULAR LAB Pat.Name: RODY CRUZ Pat.ID: [id number] .Date: 08/05/2016 Refer.MD: TERE MONAE DO Exam Time: 9:29:00 AM Study Type:SCOTTIE VS Aorta IVC Iliac Duplex DILEEP Age: 3 1960,55Y Sex: FEMALE Sonogrphr: Roxie Caba RVT Reason for Study:Follow up Stent/angioplasty History / Clinical:OP Procedures:Qureshi scale, Color Doppler imaging, Doppler Spectral Analysis Race: C Risk Factors:SEE KENZIE EXAM Clinical Symptoms:Follow up Stenting Surgery: Iliac Stent bilat common 07/01/16 Medications:ASA, Plavix-Clopidogrel ++++++++++++++++++++++++++++++++++++ SUMMARY: ++++++++++++++++++++++++++++++++++++ Gail Stenosis Criteria: 50-75% = Ratio 2.0-4.0 and/or PSV 200-300; 75-99% = Ratio >4.0 and/or PSV >300 Aorta-iliac duplex: Aorta moderate plaque, biphasic with elevated PSV 194/14, ratio 2.2; right common iliac stent patent; right external iliac mild plaque, biphasic with normal velocity. Left common iliac stent patent; left external iliac no evident narrowing, biphasic with normal velocity. left proximal internal iliac moderate plaque with elevated velocity of 332/65 cm/s. CONCLUSION: Mild aortic stenosis with moderate left internal iliac stenosis. ++++++++++++++++++++++++++++++++++++ MEASUREMENTS: ++++++++++++++++++++++++++++++++++++ DOPPLER Supra AO Supra AO PSV 77 cm/s Juxta AO Juxta AO PSV 194 cm/s Juxta AO EDV 14 cm/s Dist AO Dist AO PSV 114 cm/s Rt Prox Common Iliac Common Iliac PS 151 cm/s Rt Prox External Iliac External Iliac 96 cm/s Lt Dist External Iliac Lt Dist Externa 113 cm/s Lt Prox External Iliac External Iliac 123 cm/s Lt Prox Internal Iliac Internal Iliac 332 cm/s Internal Iliac 65 cm/s GRAFT Left Prox to Stent KALANI:Stent Prox to Stent P 127 cm/s Right Prox to Stent KALANI:Stent Prox to Stent P 201 cm/s Left Prox Stent KALANI:Stent Prox Stent PSV 117 cm/s Right Prox Stent KALANI:Stent Prox Stent PSV 183 cm/s Left Mid Stent KALANI:Stent Mid Stent PSV 133 cm/s Right Mid Stent KALANI:Stent Mid Stent PSV 159 cm/s Left Dist Stent KALANI:Stent Dist Stent PSV 139 cm/s Right Dist Stent KALANI:Stent Dist Stent PSV 175 cm/s Left Dist to Stent KALANI:Stent Dist to Stent P 121 cm/s Right Dist to Stent KALANI:Stent Dist to Stent P 155 cm/s Signed 08/06/2016 06:39 PM Jose Hawkins M.D. cc: Michelle ISLAS D.O. * Tere Monae DO - 08/06/2016 6:40 PM CDT [place] [address] Patient: RODY CRUZ [facility] Rec#: [id number] Birthdate: 1960 Admit/Svce Date: 08/05/2016 Disch Date: Attending Md: ASA MCNAMARA MD CHART DOCUMENT ARTERIAL DOPPLER - KENZIE BILATERAL LOWER EXTREMITY VASCULAR LAB Pat.Name: RODY CRUZ Pat.ID: [id number] .Date: 08/05/2016 Refer.MD: TERE MONAE DO Exam Time: 3:34:00 PM Study Type:SCOTTIE VS Arterial Doppler KENZIE LTD Age: 3 1960,55Y Sex: FEMALE Sonogrphr: Roxie Caba RVT Reason for Study:PVD History / Clinical:OP STAT Procedures:Doppler waveforms, Digit PPG, Systolic Pressures w/KENZIE Race: C Risk Factors:Hypertension, Hyperlipidemia, Diabetes, COPD, Asthma, Back/spine disorder, CVA , Smoker present, Obesity, BMI Clinical Symptoms:Follow up stenting Surgery: Iliac Stent BILAT [facility] 07/01 Medications:ASA, Plavix-Clopidogrel, Eliquis-Apixaban ++++++++++++++++++++++++++++++++++++ SUMMARY: ++++++++++++++++++++++++++++++++++++ Gail KENZIE Criteria: >1.30 [...] Posterior Tibial triphasic, medium amplitude with KENZIE 1.16 ; DP/Anterior Tibial triphasic, high amplitude with KENZIE 0.982 . Digit flow by PPG is medium amplitude with DBI 0.679 . Left leg: Common Femoral waveform is not assessed; Popliteal not assessed; Posterior Tibial bi-triphasic, high amplitude with KENZIE 1.11 ; DP/Anterior Tibial bi-triphasic, medium amplitude with KENZIE 0.911 . Digit flow by PPG is high amplitude with DBI 0.625 . Compared to previous exam done 04.17.16 , there is improvement. SEE DUPLEX SCAN REPORT DONE TODAY. CONCLUSION: KENZIE right > 1.0 with triphasic waveforms, with toe index 0.679 . KENZIE left > 1.0 with triphasic waveforms, with toe index 0.625 . No significant peripheral arterial disease at rest. No evidence of tibial artery disease bilaterally. There is no evidence of small vessel disease or embolism in either foot. ++++++++++++++++++++++++++++++++++++ MEASUREMENTS: ++++++++++++++++++++++++++++++++++++ PRESSURES Right Brachial Brach P 112 mmHg Right Ankle DP AnkleDP P 110 mmHg Right Ankle PT AnklePT P 130 mmHg Right Great Toe GreatToe P 76 mmHg Right KENZIE PT KENZIE PT 1.16 Right KENZIE DP KENZIE DP 0.982 Right TBI TBI 0.679 Left Brachial Brach P 112 mmHg Left Ankle DP AnkleDP P 102 mmHg Left Ankle PT AnklePT P 124 mmHg Left Great Toe GreatToe P 70 mmHg Left KENZIE PT KENZIE PT 1.11 Left KENZIE DP KENZIE DP 0.911 Left TBI TBI 0.625 STRESS 1 Minute 1 Min ARM 128 mmHg 1 Min KENZIE 1.06 1 Min Ankle 136 mmHg 1 Min LT KENZIE 1.03 1 Min LT Ankle 132 mmHg Signed 08/06/2016 06:36 PM Jose Hawkins M.D. cc: Michelle ISLAS D.O. documented in this encounter Plan of Treatment Not on file documented as of this encounter Visit Diagnoses Not on filedocumented in this encounter Care Teams Meter Installer Relationship Specialty Start Date End Date Tere Monae DO PCP - General FAMILY PRACTICE 05/15/16 02/11/17 Deisi Andrews MD [address] [place] [address] PCP - General FAMILY PRACTICE 02/13/17 03/10/17 Heber Adorno MD PCP - General 03/11/17 06/14/17 Deisi Andrews MD [address] [place] [address] [place] [address] PCP - General FAMILY PRACTICE 06/15/17 10/14/19 Asa Mcnamara MD [facility]. [facility] [address] [place] [address] [place] [employer] Attendant CARDIOVASCULAR DISEASE 05/15/16 documented as of this encounter
--- OUTSIDE RECORDS SUMMARY | 2024-11-12 04:48 | XMS_ITS | Encounter Summary ---
Author Organization [facility] Address [address] [place] [address] [place] [address] Care Team Providers Care Content Checker Name Role Phone Asa Mcnamara MD Unavailable Heber Adorno MD Primary Care Provider Unavailable Reason for Visit * Reason Onset Date Comments Reschedule 03/16/2017 Encounter Details Date Type Department Care Team (Late st Contact Info) Description 03/16/2017 Telephone [facility] AT [address] [address] Asa Mcnamara MD [address] [address] Reschedule Social History Tobacco Use Types Packs/Day Years Used Date Smoking Tobacco: Every Day Cigarettes Smokeless Tobacco: Never Comments:3 cig a day Alcohol Use Standard Drinks/Week Comments No 0 (1 standard drink = 0.6 oz pur e alcohol) Comments Unknown Sex and Gender Information Value Date Recorded Sex Assigned at Female 12/06/2019 3:[address] LIGHT LAMP CLEANER Legal Sex Female 5:20 PM CDT Gender Identity Female 12/06/2019 3:[address] LIGHT LAMP CLEANER Sexual Orientation Straight 12/06/2019 3: [address] LIGHT LAMP CLEANER Occupation Industry Job Start Date Job End Date Not on file Not on file Not on file Not on file documented as of this encounter Progress Notes * Porsha David - 03/16/2017 5:23 PM CDT Left message on home & call phone requesting to change time on appointment to 11:15 am. Request return call if not able to keep appointment. documented in this encounter Plan of Treatment Not on file documented as of this encounter Visit Diagnoses Not on filedocumented in this encounter Care Teams Content Checker Relationship Specialty Start Date End Date Heber Adorno MD PCP - General 03/11/17 06/14/17 Asa Mcnamara MD [facility]. [facility] [address] [place] [address] [place] [employer] Worker CARDIOVASCULAR DISEASE 05/15/16 documented as of this encounter
--- OUTSIDE RECORDS SUMMARY | 2024-11-12 04:48 | XMS_ITS | Encounter Summary ---
Author Organization [facility] Address [facility]. [place], [place] [address] [place] [address] Care Team Providers Care Bead Machine Operator Name Role Phone Asa Mcnamara MD Unavailable [phone] Heber Adorno MD Primary Care Provider Unavailable Reason for Visit * Reason Onset Date Comments Edema 04/21/2017 Encounter Details Date Type Department Care Team (Late st Contact Info) Description 04/21/2017 Telephone [facility] AT [address] [address] Katt Walter RN Edema Social History Tobacco Use Types Packs/Day Years Used Date Smoking Tobacco: Every Day Cigarettes Smokeless Tobacco: Never Alcohol Use Standard Drinks/Week Comments No 0 (1 standard drink = 0.6 oz pur e alcohol) Comments Unknown Sex and Gender Information Value Date Recorded Sex Assigned at Female 12/06/2019 3:36 PM UNIX ADMINISTRATOR Legal Sex Female 5:20 PM CDT Gender Identity Female 12/06/2019 3:36 PM UNIX ADMINISTRATOR Sexual Orientation Straight 12/06/2019 3: 36 PM UNIX ADMINISTRATOR Occupation Industry Job Start Date Job End Date Not on file Not on file Not on file Not on file documented as of this encounter Progress Notes * Hari Rehman NP - 04/21/2017 12:41 PM CDT Returned patients call. She reports increased swelling to right leg. Pain is tolerable at this time. She is mostly concerned with delay in procedure tomorrow due to the swelling. She denies any othersymptoms. She reports being diagnosed with a UTI in which she started Macrobid but is trying to switch to a different antibiotic due to GI upset. Informed her she does not need to go to the ER regarding the information she has provided. We can proceed with the vascular procedure tomorrow and evaluate her leg at that time. She verbalized understanding, no further questions. Lisandra MURPHY * Katt Walter RN - 04/21/2017 9:53 AM CDT I received a phone call from the patient stating she had swelling to both her feet for the past month. She saw her PCP and was told the swelling was due to the steroids she was taking previously for bronchitis. The swelling to the left foot went down but still has swelling to her right foot along with right calf pain. The patient states the pain to her calf was so severe even the slightest touch hurt. The patient did have an ultrasound to her right calf last week and it showed no blood clot. She still has the pain but it is not as severe. The patient wanted to know if she should go to the ER or if Dr. Mncamara can see her today. She is scheduled for a procedure tomorrow with Dr. Mcnamara. I informed the patient I will notify the MEDTRONICS TECHNICIAN. The patient verbalized understanding and had no further questions. Message to Hari MURPHY documented in this encounter Plan of Treatment Not on file documented as of this encounter Visit Diagnoses Not on filedocumented in this encounter Care Teams Bead Machine Operator Relationship Specialty Start Date End Date Heber Adorno MD PCP - General 03/11/17 06/14/17 Asa Mcnamara MD [facility] [address] [place] [address] [employer] Building Supervisor CARDIOVASCULAR DISEASE 05/15/16 documented as of this encounter
--- OUTSIDE RECORDS SUMMARY | 2024-11-12 04:48 | XMS_ITS | Encounter Summary ---
Author Organization [facility] Address [address] [facility]. [place], [place] [address] [place] [address] Care Team Providers Care Care Transition Mgr Name Role Phone Dane Sullivan DO Primary Care Provider [phone] Asa Mcnamara MD Unavailable [phone] Deisi Andrews MD Primary Care Provider [phone] Heber Adorno MD Primary Care Provider Unavailable Deisi Andrews MD Primary Care Provider [phone] Encounter Details Date Type Department Care Team (Late st Contact Info) Description 10/21/2016 Abstract [facility] Family Medicine - [address] [phone] Dane Sullivan DO [address] [phone] Social History Tobacco Use Types Packs/Day Years Used Date Smoking Tobacco: Every Day Cigarettes Smokeless Tobacco: Never Comments:3 cig a day Alcohol Use Standard Drinks/Week Comments No 0 (1 standard drink = 0.6 oz pur e alcohol) Comments Unknown Sex and Gender Information Value Date Recorded Sex Assigned at Female 12/06/2019 3:36 PM PHARMACEUTICAL SERVICE 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 Legal Sex Female 5:20 PM CDT Gender Identity Female 12/06/2019 3:36 PM PHARMACEUTICAL SERVICE 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 Sexual Orientation Straight 12/06/2019 3: 36 PM PHARMACEUTICAL SERVICE 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 Occupation Industry Job Start Date Job End Date Not on file Not on file Not on file Not on file documented as of this encounter Last Filed Vital Signs Vital Sign Reading Time Taken Comments Blood Pressure 111/74 10/21/2016 11:36 AM PHARMACEUTICAL SERVICE 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 Pulse 89 10/21/2016 11:36 AM PHARMACEUTICAL SERVICE 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 Temperature - - Respiratory Rate - - Oxygen Saturation - - Inhaled Oxygen Concentration - - Weight 101.6 kg (224 lb) 10/21/2016 11:36 AM PHARMACEUTICAL SERVICE 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 Height 157.5 cm (5' 2 ) 10/21/2016 11:36 AM PHARMACEUTICAL SERVICE 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 Body Mass Index 40.97 10/21/2016 11:36 AM PHARMACEUTICAL SERVICE 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 documented in this encounter Progress Notes * Dane Gricel Sullivan, DO - 10/21/2016 11:30 AM CST History of Present Illness HM, Adult Female: DM2 she checks her sugars daily they are 120s which is higher for her + smoker + HTN doing well does not need any refills denies any CP or SOB HLD is on statin no recent testing The patient is being seen for a health maintenance evaluation. The last health maintenance visit was > 1 year(s) ago. General Health: Lifestyle:. She does not have a healthy diet. She has weight concerns. She does not exercise regularly. She uses tobacco. Screening: cancer screening reviewed and updated. metabolic screening reviewed and updated. risk screening reviewed and updated. Review of Systems Constitutional: negative. Head and Face: negative. Eyes: negative. ENT: negative. Cardiovascular: negative. Respiratory: negative. Gastrointestinal: negative. Genitourinary: negative. Musculoskeletal: negative. Psychiatric: negative. Hematologic and Lymphatic: negative. Neurological Negative. Endocrine Negative. Active Problems 1. Antiplatelet or antithrombotic long-term use (V58.63) (Z79.02) 2. Anxiety (300.00) (F41.9) 3. Arm fracture, left (818.0) (S42.302A) 4. Chest pain (786.50) (R07.9) 5. Chronic diarrhea (787.91) (K52.9) 6. Chronic obstructive pulmonary disease (496) (J44.9) 7. Chronic pain (338.29) (G89.29) 8. Corns and callosity (700) (L84) 9. Cough (786.2) (R05) 10. Diabetes mellitus, type 2 (250.00) (E11.9) 11. Diarrhea (787.91) (R19.7) 12. Enteritis (558.9) (K52.9) 13. Flank pain (789.09) (R10.9) 14. History of CVA (cerebrovascular accident) (V12.54) (Z86.73) 15. Hyperlipidemia (272.4) (E78.5) 16. Hypertension (401.9) (I10) 17. Incontinence (788.30) (R32) 18. Limb swelling (729.81) (M79.89) 19. Nausea with vomiting (787.01) (R11.2) 20. Overactive bladder (596.51) (N32.81) 21. Pes cavus (736.73) (M21.6X9) 22. Plantar warts (078.12) (B07.0) 23. Porokeratosis (757.39) (Q82.8) 24. Proteinuria (791.0) (R80.9) 25. Smoking (305.1) (F17.200) 26. Soft tissue mass (729.90) (M79.9) Past Medical History ?? History of arthritis (V13.4) (Z87.39) ?? History of diabetes mellitus (V12.29) (Z86.39) ?? History of hypertension (V12.59) (Z86.79) ?? History of stroke (V12.54) (Z86.73) ?? History of Needs flu shot (V04.81) (Z23) ?? History of URTI (acute upper respiratory infection) (465.9) (J06.9) Surgical History ?? History of Section ?? History of Cholecystectomy ?? History of Ear Pressure Equalization Tube, Insertion, Bilaterally ?? History of Tubal Ligation Family History Mother ?? Family history of Heart problem Father ?? Family history of diabetes mellitus (V18.0) (Z83.3) ?? Family history of lung disease (V19.8) (Z83.6) Sister ?? Family history of Alzheimer's disease (V17.2) (Z82.0) ?? Family history of cerebrovascular accident (V17.1) (Z82.3) ?? Family history of hypertension (V17.49) (Z82.49) ?? Family history of pancreatic cancer (V16.0) (Z80.0) Social History ?? Caffeine use (V49.89) (F15.90) ?? Current every day smoker (305.1) (F17.200) ?? No alcohol use ?? Single ?? Smoking (305.1) (F17.200) Current Meds 1. Albuterol Sulfate (2.5 MG/3ML) 0.083% Inhalation Nebulization Solution; USE 1 UNIT DOSE IN NEBULIZER EVERY 4 TO 6 HOURS NEEDED; Therapy: 09Jun2016 to (Last Rx:09Jun2016) Requested for: 09Jun2016 Ordered Rx By: Dane Sullivan; Dispense: 0 Days ; #:3 X 3 ML Plas Cont (60 Plas Conts); Refill: 1; For: Chronic obstructive pulmonary disease; ADAM = N; Verified Transmission to [facility]; Last Updated By: [employer]; 06/09/2016 2:36:41 PM 2. Joleen 180 MG TABS; Therapy: (Recorded:[id number]) to Recorded Dispense: 0 Days ; #: Sufficient TABS; Refill: 0; ADAM = N; Record; Last Updated By: Jennifer Wayne; 07/14/2016 9:53:22 AM 3. Ambien 5 MG Oral Tablet; Therapy: (Recorded:[id number]) to Recorded Dispense: 0 Days ; #: Sufficient TABS; Refill: 0; ADAM = N; Record; Last Updated By: Jennifre Wayne; 10/21/2016 11:36:24 AM 4. AmLODIPine Besylate 5 MG Oral Tablet; TAKE ONE TABLET BY MOUTH ONCE DAILY DIRECTED; Therapy: 25Sep2015 to (Evaluate:25Sep2017) Requested for: 30Sep2016; Last Rx:30Sep2016 Ordered Rx By: Dnae Sullivan; Dispense: 90 Days ; #:90 TAB; Refill: 3; For: Hypertension; ADAM = N; Verified Transmission to [facility]; Last Updated By: [employer]; 09/30/2016 9:10:47 AM 5. Aspirin Low Dose TABS; Therapy: (Recorded:[id number]) to Recorded Dispense: 0 Days ; #: Sufficient Tablet; Refill: 0; ADAM = N; Record; Last Updated By: Jennifer Wayne; 07/14/2016 9:53:22 AM 6. Cilostazol 100 MG Oral Tablet; Therapy: (Recorded:[id number]) to Recorded Dispense: 0 Days ; #: Sufficient TABS; Refill: 0; ADAM = N; Record; Last Updated By: Jennifer Wayne; 07/14/2016 9:53:22 AM 7. Cyclobenzaprine HCl - 10 MG Oral Tablet; TAKE ONE TABLET BY MOUTH ONCE TO TWICE DAILY NEEDED; Therapy: 27Nov2015 to (Evaluate:11Nov2016) Requested for: 12Oct2016; Last Rx:12Oct2016 Ordered Rx By: Dane Sullivan; Dispense: 30 Days ; #:60 TAB; Refill: 0; For: Chronic pain; ADAM = N; Verified Transmission to [facility]; Last Updated By: [employer]; 10/12/2016 10:33:42 AM 8. Depend Underwear Large/XL Miscellaneous; USE DIRECTED, Q4-6H; Therapy: 15Oct2016 to (Last Rx:15Oct2016) Ordered Rx By: Dane Sullivan; Dispense: 0 Days ; #:2 X 28 Miscellaneous Package (2 Packages); Refill: 0; For: Chronic diarrhea, Incontinence; ADAM = N; Print Rx; Last Updated By: Starr Melendez; 10/15/2016 3:35:51 PM 9. FLUoxetine HCl - 40 MG Oral Capsule; TAKE 1 CAPSULE BY MOUTH DAILY; Therapy: (Recorded:[id number]) to Requested for: 15Oct2016 Recorded Rx By: Dane Sullivan; Dispense: 0 Days ; #: Sufficient Capsule; Refill: 0; For: Anxiety; ADAM = N;Record; Last Updated By: Starr Melendez; 10/15/2016 3:16:22 PM 10. Isosorbide Mononitrate ER 30 MG Oral Tablet Extended Release 24 Hour; Therapy: (Recorded:[id number]) to Recorded Dispense: 0 Days ; #: Sufficient TB24; Refill: 0; ADAM = N; Record; Last Updated By: Jennifer Wayne; 07/14/2016 9:53:22 AM 11. LORazepam 0.5 MG Oral Tablet; Therapy: [id number] to Recorded Dispense: 0 Days ; #: Sufficient Tablet; Refill: 0; ADAM = N; Record; Last Updated By: Starr Melendez; 10/15/2016 3:16:22 PM 12. Losartan Potassium 100 MG Oral Tablet; TAKE ONE TABLET BY MOUTH ONCE DAILY; Therapy: 10Mar2016 to (Evaluate:05Dec2016) Requested for: 01Apr2016; Last Rx:10Mar2016 Ordered Rx By: Dane Sullivan; Dispense: 90 Days ; #:90 TAB; Refill: 2; For: Hypertension; ADAM = N; Verified Transmission to [facility]; Last Updated By: Marilee Walker; 04/01/2016 8:50:14 AM 13. MetFORMIN HCl - 500 MG Oral Tablet; TAKE ONE TABLET BY MOUTH TWICE DAILY WITH MEALS; Therapy: 10Mar2016 to (Evaluate:89Jzz1002) Requested for: 01Apr2016; Last Rx:10Mar2016 Ordered Rx By: Dane Sullivan; Dispense: 30 Days ; #:180 TAB; Refill: 2; For: Health Maintenance; ADAM = N;Verified Transmission to [facility]; Last Updated By: Marilee Walker; 04/01/2016 8:50:14AM 14. Metoprolol Succinate ER 25 MG Oral Tablet Extended Release 24 Hour; Therapy: (Recorded:[id number]) to Recorded Dispense: 0 Days ; #: Sufficient TB24; Refill: 0; ADAM = N; Record; Last Updated By: Jennifer Wayne; 07/14/2016 9:53:22 AM 15. Montelukast Sodium 10 MG Oral Tablet; TAKE ONE TABLET BY MOUTH ONCE DAILY; Therapy: 22Sep2016 to (Evaluate:[id number]) Requested for: 22Sep2016; Last Rx:22Sep2016 Ordered Rx By: Dane Sullivan; Dispense: 90 Days ; #:90 TAB; Refill: 0; For: Chronic obstructive pulmonarydisease; ADAM = N; Verified Transmission to [facility]; Last Updated By: Ezra Baez; 09/22/2016 7:08:22 AM 16. Nebulizer/Tubing/Mouthpiece KIT; USE DIRECTED Q4-6H PRN; Therapy: 40Fpm1379 to (Last Rx:[id number]) Ordered Rx By: Dane Sullivan; Dispense: 0 Days ; #:1 Kit; Refill: 0; For: Chronic obstructive pulmonary disease; ADAM = N; Print Rx; Last Updated By: Starr Melendez; 10/15/2016 3:35:51 PM 17. Nitrostat 0.4 MG Sublingual Tablet Sublingual; Therapy: (Recorded:[id number]) to Recorded Dispense: 0 Days ; #: Sufficient SUBL; Refill: 0; ADAM = N; Record; Last Updated By: Jennifer Wayne; 07/14/2016 9:53:22 AM 18. Percocet 5-325 MG Oral Tablet; Therapy: (Recorded:[id number]) to Recorded Dispense: 0 Days ; #: Sufficient TABS; Refill: 0; ADAM = N; Record; Last Updated By: Jennifer Wayne; 10/21/2016 11:36:24 AM 19. Pravastatin Sodium 40 MG Oral Tablet; TAKE ONE TABLET BY MOUTH ONCE DAILY; Therapy: 21Vaq7203 to (Evaluate:80Pme6677) Requested for: [id number]; Last Rx:12Feb2016 Ordered Rx By: Dane Sullivan; Dispense: 90 Days ; #:90 TAB; Refill: 2; For: Hyperlipidemia; ADAM = N; Verified Transmission to [facility]; Last Updated By: Marilee Walker; 04/01/2016 8:50:14 AM 20. PriLOSEC 20 MG Oral Capsule Delayed Release; Therapy: (Recorded:[id number]) to Recorded Dispense: 0 Days ; #: Sufficient CPDR; Refill: 0; ADAM = N; Record; Last Updated By: Marilee Walker; 04/01/2016 8:50:14 AM 21. Qvar 40 MCG/ACT Inhalation Aerosol Solution; INHALE ONE PUFF BY MOUTH TWICE DAILY; Therapy: 63Bcs0059 to (Evaluate:23Sep2016) Requested for: 48Uab7112; Last Rx:[id number] Ordered Rx By: Dane Sullivan; Dispense: 90 Days ; #:27 EA; Refill: 1; For: Chronic obstructive pulmonary disease; ADAM = N; Verified Transmission to [facility]; Last Updated By: Marilee Walker; 04/01/2016 8:50:14 AM 22. Underpads Miscellaneous; USE DIRECTED, Q4-6H; Therapy: 05Foa2210 to (Last Rx:[id number]) Ordered Rx By: Dane Sullivan; Dispense: 0 Days ; #:3 X 25 Miscellaneous Package (10 Packages); Refill: 5;For: Incontinence; ADAM = N; Print Rx; Last Updated By: Starr Melendez; 10/15/2016 3:35:51 PM 23. Ventolin HFA 108 (90 Base) MCG/ACT Inhalation Aerosol Solution; INHALE TWO PUFFS BY MOUTH EVERY 4 TO 6 HOURS NEEDED; Therapy: 23Rjc4962 to (Evaluate:[id number]) Requested for: 31Aug2016; Last Rx:31Aug2016 Ordered Rx By: Dane Sullivan; Dispense: 17 Days ; #:18 Unit; Refill: 2; For: Chronic obstructive pulmonary disease; ADAM = N; Verified Transmission to [facility]; Last Updated By: Ezra Baez; 08/31/2016 9:47:43 AM 24. Xanax 1 MG Oral Tablet; Therapy: (Recorded:[id number]) to Recorded Dispense: 0 Days ; #: Sufficient TABS; Refill: 0; ADAM = N; Record; Last Updated By: Marilee Walker; 10/21/2016 11:36:24 AM Allergies 1. Halcion Recorded By: Jennifer Wayne; 04/22/2015 1:02:20 PM 2. Haldol Recorded By: Jennifer Wayne; 04/22/2015 1:02:20 PM 3. Penicillins Recorded By: Jennifer Wayne; 04/22/2015 1:02:20 PM 4. Risperidone and Related Recorded By: Jennifer Wayne; 04/22/2015 1:02:20 PM Immunizations 1 Influenza [id number] Vitals Recorded: 21Oct2016 11:36AM Heart Rate 89 Systolic 111 Diastolic 74 Height 5 ft 2 in Weight 224 lb BMI Calculated 40.97 BSA Calculated 2.01 Physical Exam Constitutional General appearance: No acute distress, well appearing and well nourished. Eyes Conjunctiva and lids: No swelling, erythema or discharge. Ears, Nose, Mouth, and Throat External inspection of ears and nose: Normal. Oropharynx: Normal with no erythema, edema, exudate or lesions. Pulmonary Respiratory effort: No increased work of breathing or signs of respiratory distress. Auscultation of lungs: Clear to auscultation. Cardiovascular Auscultation of heart: Normal rate and rhythm, normal S1 and S2, without murmurs. Examination of extremities for edema and/or varicosities: Normal. Abdomen Abdomen: Non-tender, no masses. Psychiatric Mood and affect: Normal. Assessment 1. Encounter for preventive health examination (V70.0) (Z00.00) 2. Hypertension (401.9) (I10) 3. Hyperlipidemia (272.4) (E78.5) 4. Diabetes mellitus, type 2 (250.00) (E11.9) Plan Diabetes mellitus, type 2 ?? Compr Metabolic Prof ( CMP ); Status:Hold For - Manual Activation; Requested for:[id number]; Perform:[facility]; Due:20Nov2016;Ordered; For:Diabetes mellitus, type 2; Ordered By:Dane Sullivan; ?? Hemoglobin A1C ( HA1C ); Status:Hold For - Manual Activation; Requested for:[id number]; Perform:[facility]; Due:20Nov2016;Ordered; For:Diabetes mellitus, type 2; Ordered By:Dane Sullivan; ?? Lipid Profile; Status:Hold For - Manual Activation; Requested for:[id number]; Perform:[facility]; Due:20Nov2016;Ordered; For:Diabetes mellitus, type 2; Ordered By:Dane Sullivan; Unlinked ?? Ambien 5 MG Oral Tablet (Zolpidem Tartrate) Dispense: 0 Days ; #: Sufficient TABS; Refill: 0; ADAM = N; Record; Last Updated By: Jennifer Wayne; 10/21/2016 11:36:24 AM ?? Percocet 5-325 MG Oral Tablet (Oxycodone-Acetaminophen) Dispense: 0 Days ; #: Sufficient TABS; Refill: 0; ADAM = N; Record; Last Updated By: Jennifer Wayne; 10/21/2016 11:36:24 AM ?? Xanax 1 MG Oral Tablet (ALPRAZolam) Dispense: 0 Days ; #: Sufficient TABS; Refill: 0; ADAM = N; Record; Last Updated By: Jennifer Wayne; 10/21/2016 11:36:24 AM Discussion/Summary Impression: health maintenance visit. Currently, she eats a poor diet and has an inadequate exercise regimen. Cervical cancer screening: the risks and benefits of cervical cancer screening were discussed, cervical cancer screening is current and cervical cancer screening is managed by BRIAR WOOD SORTER, farshad goodwin in Jul 2016. Breast cancer screening: the risks and benefits of breast cancer screening were discussed and breast cancer screening is managed by BRIAR WOOD SORTER, RENATA pio in Jul 2016. Colorectal cancerscreening: the risks and benefits of colorectal cancer screening were discussed, colorectal cancer screening is current and colorectal cancer screening is managed by ipo PAGE at age 51, was normal. Screening lab work includes glucose, lipid profile and thyroid function testing. The immunizations will be given as outlined in the orders and flu and pna (last pna was 7 years ago). Advice and education were given regarding nutrition, aerobic exercise, weight bearing exercise, weight loss, reproductive health, cardiovascular risk reduction and tobacco cessation. BP is controlled cont meds check labs DM2 is on metformin 500 cont currentmeds check A1C HLD cont meds check labs Signatures Electronically signed by : Dane Sullivan D.O.; Oct 21 2016 11:54AM PHARMACEUTICAL SERVICE 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 (Author) documented in this encounter Plan of Treatment Not on file documented as of this encounter Visit Diagnoses Not on filedocumented in this encounter Care Teams Care Transition Mgr Relationship Specialty Start Date End Date Dane Sullivan DO PCP - General FAMILY PRACTICE 05/15/16 02/11/17 Deisi Andrews MD [address] [place] [address] PCP - General FAMILY PRACTICE 02/13/17 03/10/17 Heber Adorno MD PCP - General 03/11/17 06/14/17 Deisi Andrews MD [address] [place] [address] PCP - General FAMILY PRACTICE 06/15/17 10/14/19 Asa Mcnamara MD [facility] [address] [place] [address] [place] Teacher [employer] CARDIOVASCULAR DISEASE 05/15/16 documented as of this encounter
--- OUTSIDE RECORDS SUMMARY | 2024-11-12 04:48 | XMS_ITS | Encounter Summary ---
Author Organization [facility] Address [facility] [place] [place] [address] [place] [address] Care Team Providers Care Utility Aircrewman Name Role Phone Dane Sullivan DO Primary Care Provider [phone] Asa Mcnamara MD Unavailable [phone] Encounter Details Date Type Department Care Team (Late st Contact Info) Description 11/04/2016 Scan [facility] [address] [place] [phone] Scanned, Documents Social History Tobacco Use Types Packs/Day Years Used Date Smoking Tobacco: Every Day Cigarettes Smokeless Tobacco: Never Comments:3 cig a day Alcohol Use Standard Drinks/Week Comments No 0 (1 standard drink = 0.6 oz pur e alcohol) Comments Unknown Sex and Gender Information Value Date Recorded Sex Assigned at Female 12/06/2019 3:36 PM HYDROELECTRIC STATION OPERATOR Legal Sex Female 5:20 PM CDT Gender Identity Female 12/06/2019 3:36 PM HYDROELECTRIC STATION OPERATOR Sexual Orientation Straight 12/06/2019 3: 36 PM HYDROELECTRIC STATION OPERATOR Occupation Industry Job Start Date Job End Date Not on file Not on file Not on file Not on file documented as of this encounter Plan of Treatment Not on file documented as of this encounter Procedures Procedure Name Priority Date/Time Associated Diagnosis Comments VASCULAR LAB GENERIC (SCAN ORDER) Routine 06/04/2016 documented in this encounter Results * VASCULAR LAB (06/04/2016) us Documents Scanned SCANNING Final Result documented in this encounter Visit Diagnoses Not on filedocumented in this encounter Care Teams Utility Aircrewman Relationship Specialty Start Date End Date Daen Sullivan DO PCP - General FAMILY PRACTICE 05/15/16 02/11/17 Asa Mcnamara MD [facility]. [facility] [address] [place] [address] [place] Instructor Trainer Canine Service CARDIOVASCULAR DISEASE 05/15/16 documented as of this encounter
--- OUTSIDE RECORDS SUMMARY | 2024-11-12 04:48 | XMS_ITS | Encounter Summary ---
Author Organization [facility] Address [facility] [place] [address] [place] [address] Care Team Providers Care Way Inspector Name Role Phone Dane Sullivan DO Primary Care Provider [phone] Asa Mcnamara MD Unavailable [phone] Reason for Visit * Reason Onset Date Comments Results 08/26/2016 Encounter Details Date Type Department Care Team (Late st Contact Info) Description 08/26/2016 Telephone [facility] AT [address] [address] Katt Walter, RN Results Social History Tobacco Use Types Packs/Day Years Used Date Smoking Tobacco: Every Day Cigarettes Smokeless Tobacco: Never Comments:3 cig a day Alcohol Use Standard Drinks/Week Comments No 0 (1 standard drink = 0.6 oz pur e alcohol) Comments Unknown Sex and Gender Information Value Date Recorded Sex Assigned at Female 12/06/2019 3:36 PM MANAGER BRANCH Legal Sex Female 5:20 PM CDT Gender Identity Female 12/06/2019 3:36 PM MANAGER BRANCH Sexual Orientation Straight 12/06/2019 3: 36 PM MANAGER BRANCH Occupation Industry Job Start Date Job End Date Not on file Not on file Not on file Not on file documented as of this encounter Progress Notes * Katt Walter RN - 08/27/2016 8:48 AM CDT I informed the patient of the above information from Christina GARCIA. The patient verbalized understanding and had no further questions. * Christina Munguia PA-C - 08/26/2016 1:37 PM CDT Likely just musculoskeletal. Cont to monitor if it worsens discuss with PCP. Irene Vasquez * Katt Walter RN - 08/26/2016 1:27 PM CDT I informed the patient of the above information from Christina GARCIA. The patient states she has sharp pain like a muscle spasm to the right side of her neck that occurs anytime - laying down, walking around. I informed the patient I will notify the PA. The patient verbalized understanding and had no further questions. Message to Dr. Mcnamara's PA * Katt Walter RN - 08/26/2016 11:32 AM CDT Please call patient and let them know carotid duplex looks ok. ??Mild stenosis on the right side. ??Nothing to do now with it, but we will monitor it. ??No stenosis noted on left side. ?? Above message from Christina GARCIA. I left a voicemail for the patient to call our office. The office number and my extension were provided. documented in this encounter Plan of Treatment Not on file documented as of this encounter Visit Diagnoses Not on filedocumented in this encounter Care Teams Way Inspector Relationship Specialty Start Date End Date Dane Sullivan DO PCP - General FAMILY PRACTICE 05/15/16 02/11/17 Asa Mcnamara MD [address] [address] Stephen Foundry Process Engineer CARDIOVASCULAR DISEASE 05/15/16 documented as of this encounter
--- OUTSIDE RECORDS SUMMARY | 2024-11-12 04:48 | XMS_ITS | Encounter Summary ---
Author Organization [facility] Address [facility]. [place], [place] [address] [place] [address] Care Team Providers Care Distance Education Faculty Liaison Name Role Phone Dane Sullivan DO Primary Care Provider + [phone] Asa Mcnamara MD Unavailable [phone] Deisi Andrews MD Primary Care Provider [phone] Heber Adorno MD Primary Care Provider Unavailable Deisi Andrews MD Primary Care Provider [phone] Encounter Details Date Type Department Care Team (Latest Contact Info) Description 12/08/2016 Abstract [facility] Medical [facility] Social History Tobacco Use Types Packs/Day Years Used Date Smoking Tobacco: Every Day Cigarettes Smokeless Tobacco: Never Comments:3 cig a day Alcohol Use Standard Drinks/Week Comments No 0 (1 standard drink = 0.6 oz pur e alcohol) Comments Unknown Sex and Gender Information Value Date Recorded Sex Assigned at Female 12/06/2019 3:36 PM ESTHETICIAN FACIALIST Legal Sex Female 5:20 PM CDT Gender Identity Female 12/06/2019 3:36 PM ESTHETICIAN FACIALIST Sexual Orientation Straight 12/06/2019 3: 36 PM ESTHETICIAN FACIALIST Occupation Industry Job Start Date Job End Date Not on file Not on file Not on file Not on file documented as of this encounter Plan of Treatment Not on file documented as of this encounter Visit Diagnoses Not on filedocumented in this encounter Care Teams Distance Education Faculty Liaison Relationship Specialty Start Date End Date Dane Sullivan DO PCP - General FAMILY PRACTICE 05/15/16 02/11/17 Deisi Andrews MD [address] [place] [address] PCP - General FAMILY PRACTICE 02/13/17 03/10/17 Heber Adorno MD PCP - General 03/11/17 06/14/17 Deisi Andrews MD [address] [place] [address] PCP - General FAMILY PRACTICE 06/15/17 10/14/19 Asa Mcnamara MD [facility] [address] [place] [address] Stephen Ob/Gyn Doctor CARDIOVASCULAR DISEASE 05/15/16 documented as of this encounter
--- OUTSIDE RECORDS SUMMARY | 2024-11-12 04:48 | XMS_ITS | Encounter Summary ---
Author Organization [facility] Address [address] [facility] [place] [address] [place] [address] Care Team Providers Care Physician Liaison Name Role Phone Asa Mcnamara MD Unavailable [phone] Heber Adorno MD Primary Care Provider Unavailable Encounter Details Date Type Department Care Team (Late st Contact Info) Description 04/22/2017 Orders Only [facility] AT [address] [address] [place], [facility] Social History Tobacco Use Types Packs/Day Years Used Date Smoking Tobacco: Every Day Cigarettes Smokeless Tobacco: Never Alcohol Use Standard Drinks/Week Comments No 0 (1 standard drink = 0.6 oz pur e alcohol) Comments Unknown Sex and Gender Information Value Date Recorded Sex Assigned at Female 12/06/2019 3:36 PM POLICE ACADEMY PROGRAM COORDINATOR Legal Sex Female 5:20 PM CDT Gender Identity Female 12/06/2019 3:36 PM POLICE ACADEMY PROGRAM COORDINATOR Sexual Orientation Straight 12/06/2019 3: 36 PM POLICE ACADEMY PROGRAM COORDINATOR Occupation Industry Job Start Date Job End Date Not on file Not on file Not on file Not on file documented as of this encounter Plan of Treatment Not on file documented as of this encounter Visit Diagnoses Not on filedocumented in this encounter Care Teams Physician Liaison Relationship Specialty Start Date End Date Heber Adorno MD PCP - General 03/11/17 06/14/17 Asa Mcnamara MD [facility] [address] [place] [address] Stephen Broadcast News Producer CARDIOVASCULAR DISEASE 05/15/16 documented as of this encounter
--- OUTSIDE RECORDS SUMMARY | 2024-11-12 04:48 | XMS_ITS | Encounter Summary ---
Author Organization [facility] - [facility] Address [address] [place] [address] [place] [address] Care Team Providers Care Router Setter Name Role Phone Asa Mcnamara MD Unavailable [phone] , Heber Trinidad MD Primary Care Provider Unavailable Encounter Details Date Type Department Care Team (Late st Contact Info) Description 04/21/2017 Orders Only [facility] AT [place] [address] [place], [place] [id number] Asa Mcnamara MD [address] [id number] Social History Tobacco Use Types Packs/Day Years Used Date Smoking Tobacco: Every Day Cigarettes Smokeless Tobacco: Never Alcohol Use Standard Drinks/Week Comments No 0 (1 standard drink = 0.6 oz pur e alcohol) Comments Unknown Sex and Gender Information Value Date Recorded Sex Assigned at Female 12/06/2019 3:36 PM TRIMMER BUFFING WHEEL Legal Sex Female 5:20 PM CDT Gender Identity Female 12/06/2019 3:36 PM TRIMMER BUFFING WHEEL Sexual Orientation Straight 12/06/2019 3: 36 PM TRIMMER BUFFING WHEEL Occupation Industry Job Start Date Job End Date Not on file Not on file Not on file Not on file documented as of this encounter Plan of Treatment Not on file documented as of this encounter Visit Diagnoses Diagnosis PVD (peripheral vascular disease) (CMS/HCC)- Primary Peripheral vascular disease, unspecified documented in this encounter Care Teams Router Setter Relationship Specialty Start Date End Date , Generic Conversion, PCP - General 03/11/17 06/14/17 Asa Mcnamara MD [facility]. [facility] [address] [place] [address] [place] Booth Manager CARDIOVASCULAR DISEASE 05/15/16 documented as of this encounter
--- OUTSIDE RECORDS SUMMARY | 2024-11-12 04:48 | XMS_ITS | Encounter Summary ---
Author Organization [facility] Address [facility]6 [facility]. [place], [place] [address] [place] [address] Care Team Providers Care Silk Screen Painter Name Role Phone Dane Sullivan DO Primary Care Provider + [phone] Asa Mcnamara MD Unavailable [phone] Deisi Andrews MD Primary Care Provider [phone] Heber Adorno MD Primary Care Provider Unavailable Deisi Andrews MD Primary Care Provider [phone] Encounter Details Date Type Department Care Team (Latest Contact Info) Description 11/12/[address] [facility] Medical [facility] Social History Tobacco Use Types Packs/Day Years Used Date Smoking Tobacco: Every Day Cigarettes Smokeless Tobacco: Never Comments:3 cig a day Alcohol Use Standard Drinks/Week Comments No 0 (1 standard drink = 0.6 oz pur e alcohol) Comments Unknown Sex and Gender Information Value Date Recorded Sex Assigned at Female 12/06/2019 3:36 PM NEURODIAGNOSTIC TECH Legal Sex Female 5:20 PM CDT Gender Identity Female 12/06/2019 3:36 PM NEURODIAGNOSTIC TECH Sexual Orientation Straight 12/06/2019 3: 36 PM NEURODIAGNOSTIC TECH Occupation Industry Job Start Date Job End Date Not on file Not on file Not on file Not on file documented as of this encounter Plan of Treatment Not on file documented as of this encounter Visit Diagnoses Not on filedocumented in this encounter Care Teams Silk Screen Painter Relationship Specialty Start Date End Date Dane Sullivan DO PCP - General FAMILY PRACTICE 05/15/16 02/11/17 Deisi Andrews MD [address] [place] [address] PCP - General FAMILY PRACTICE 02/13/17 03/10/17 Heber Adorno MD PCP - General 03/11/17 06/14/17 Deisi Andrews MD [address] [place] [address] PCP - General FAMILY PRACTICE 06/15/17 10/14/19 Asa Mcnamara MD [facility] [address] [place] [address] Stephen Associate Financial Advisor CARDIOVASCULAR DISEASE 05/15/16 documented as of this encounter
--- OUTSIDE RECORDS SUMMARY | 2024-11-12 04:48 | XMS_ITS | Encounter Summary ---
Author Organization [facility] Address [facility]6 [facility]. [place], [place] [address] [place] [address] Care Team Providers Care Swing Ride Operator Name Role Phone Dane Sullivan DO Primary Care Provider + [phone] Asa Mcnamara MD Unavailable [phone] Deisi Andrews MD Primary Care Provider [phone] Heber Adorno MD Primary Care Provider Unavailable Deisi Andrews MD Primary Care Provider [phone] Encounter Details Date Type Department Care Team (Latest Contact Info) Description 10/29/2016 Abstract [facility] Medical Group Social History Tobacco Use Types Packs/Day Years Used Date Smoking Tobacco: Every Day Cigarettes Smokeless Tobacco: Never Comments:3 cig a day Alcohol Use Standard Drinks/Week Comments No 0 (1 standard drink = 0.6 oz pur e alcohol) Comments Unknown Sex and Gender Information Value Date Recorded Sex Assigned at Female 12/06/2019 3:36 PM SALES STORE CHECKER Legal Sex Female 5:20 PM CDT Gender Identity Female 12/06/2019 3:36 PM SALES STORE CHECKER Sexual Orientation Straight 12/06/2019 3: 36 PM SALES STORE CHECKER Occupation Industry Job Start Date Job End Date Not on file Not on file Not on file Not on file documented as of this encounter Plan of Treatment Not on file documented as of this encounter Visit Diagnoses Not on filedocumented in this encounter Care Teams Swing Ride Operator Relationship Specialty Start Date End Date Dane Sullivan DO PCP - General FAMILY PRACTICE 05/15/16 02/11/17 Deisi Andrews MD [address] [place] [address] PCP - General FAMILY PRACTICE 02/13/17 03/10/17 Heber Adorno MD PCP - General 03/11/17 06/14/17 Deisi Andrews MD [address] [place] [address] PCP - General FAMILY PRACTICE 06/15/17 10/14/19 Asa Mcnamara MD [facility] [address] [place] [address] Stephen Pharmacist Per Diem CARDIOVASCULAR DISEASE 05/15/16 documented as of this encounter
--- OUTSIDE RECORDS SUMMARY | 2024-11-12 04:48 | XMS_ITS | Encounter Summary ---
Author Organization [facility] Address [facility]6 [facility]. [place], [place] [address] [place] [address] Care Team Providers Care Sorter/Assay Tech Name Role Phone Dane Sullivan DO Primary Care Provider + [phone] Asa Mcnamara MD Unavailable [phone] Deisi Andrews MD Primary Care Provider [phone] Heber Adorno MD Primary Care Provider Unavailable Deisi Andrews MD Primary Care Provider [phone] Encounter Details Date Type Department Care Team (Latest Contact Info) Description 02/01/2017 Abstract [facility] Medical Group Social History Tobacco Use Types Packs/Day Years Used Date Smoking Tobacco: Every Day Cigarettes Smokeless Tobacco: Never Comments:3 cig a day Alcohol Use Standard Drinks/Week Comments No 0 (1 standard drink = 0.6 oz pur e alcohol) Comments Unknown Sex and Gender Information Value Date Recorded Sex Assigned at Female 12/06/2019 3:36 PM DAYCARE TEACHER Legal Sex Female 5:20 PM CDT Gender Identity Female 12/06/2019 3:36 PM DAYCARE TEACHER Sexual Orientation Straight 12/06/2019 3: 36 PM DAYCARE TEACHER Occupation Industry Job Start Date Job End Date Not on file Not on file Not on file Not on file documented as of this encounter Plan of Treatment Not on file documented as of this encounter Visit Diagnoses Not on filedocumented in this encounter Care Teams Sorter/Assay Tech Relationship Specialty Start Date End Date Dane Sullivan DO PCP - General FAMILY PRACTICE 05/15/16 02/11/17 Deisi Andrews MD [address] [place] [address] PCP - General FAMILY PRACTICE 02/13/17 03/10/17 Heber Adorno MD PCP - General 03/11/17 06/14/17 Deisi Andrews MD [address] [place] [address] PCP - General FAMILY PRACTICE 06/15/17 10/14/19 Asa Mcnamara MD [facility] [address] [place] [address] Stephen Stabber CARDIOVASCULAR DISEASE 05/15/16 documented as of this encounter
--- OUTSIDE RECORDS SUMMARY | 2024-11-12 04:48 | XMS_ITS | Encounter Summary ---
Author Organization [facility] Address [facility]. [place], [place] [address] [place] [address] Care Team Providers Care Filing Clerk Name Role Phone Dane Sullivan DO Primary Care Provider + [phone] Asa Mcnamara MD Unavailable [phone] Deisi Andrews MD Primary Care Provider [phone] Heber Adorno MD Primary Care Provider Unavailable Deisi Andrews MD Primary Care Provider [phone] Encounter Details Date Type Department Care Team (Latest Contact Info) Description 10/22/2016 Abstract [facility] Medical Group Social History Tobacco Use Types Packs/Day Years Used Date Smoking Tobacco: Every Day Cigarettes Smokeless Tobacco: Never Comments:3 cig a day Alcohol Use Standard Drinks/Week Comments No 0 (1 standard drink = 0.6 oz pur e alcohol) Comments Unknown Sex and Gender Information Value Date Recorded Sex Assigned at Female 12/06/2019 3:36 PM PALM GATHERER Legal Sex Female 5:20 PM CDT Gender Identity Female 12/06/2019 3:36 PM PALM GATHERER Sexual Orientation Straight 12/06/2019 3: 36 PM PALM GATHERER Occupation Industry Job Start Date Job End Date Not on file Not on file Not on file Not on file documented as of this encounter Plan of Treatment Not on file documented as of this encounter Visit Diagnoses Not on filedocumented in this encounter Care Teams Filing Clerk Relationship Specialty Start Date End Date Dane Sullivna DO PCP - General FAMILY PRACTICE 05/15/16 02/11/17 Deisi Andrews MD [address] [place] [address] PCP - General FAMILY PRACTICE 02/13/17 03/10/17 Heber Adorno MD PCP - General 03/11/17 06/14/17 Deisi Andrews MD [address] [place] [address] PCP - General FAMILY PRACTICE 06/15/17 10/14/19 Asa Mcnamara MD [facility] [address] [place] [address] Stephen Slot Machine Repairer CARDIOVASCULAR DISEASE 05/15/16 documented as of this encounter
--- OUTSIDE RECORDS SUMMARY | 2024-11-12 04:48 | XMS_ITS | Encounter Summary ---
Author Organization [facility] Address [facility]6 [facility] [place] [address] [place] [address] Care Team Providers Care Pinking Machine Operator Name Role Phone Asa Mcnamara MD Unavailable [phone] Deisi Andrews MD Primary Care Provider [phone] Reason for Visit * Reason Onset Date Comments Testing 02/26/2017 Encounter Details Date Type Department Care Team (Late st Contact Info) Description 02/26/2017 Telephone [facility] AT [address] [address] Asa Mcnamara MD [address] [address] Testing Social History Tobacco Use Types Packs/Day Years Used Date Smoking Tobacco: Every Day Cigarettes Smokeless Tobacco: Never Comments:3 cig a day Alcohol Use Standard Drinks/Week Comments No 0 (1 standard drink = 0.6 oz pur e alcohol) Comments Unknown Sex and Gender Information Value Date Recorded Sex Assigned at Female 12/06/2019 3:36 PM RN HEDIS Legal Sex Female 5:20 PM CDT Gender Identity Female 12/06/2019 3:36 PM RN HEDIS Sexual Orientation Straight 12/06/2019 3: 36 PM RN HEDIS Occupation Industry Job Start Date Job End Date Not on file Not on file Not on file Not on file documented as of this encounter Progress Notes * Porsha David - 02/26/2017 3:58 PM CDT Left message on home phone requesting return call regarding rescheduling aortoiliac duplex & johan's w/exercise priori to her 03/22/[address] Mcnamara if she is feeling well enough to do test at this time. documented in this encounter Plan of Treatment Not on file documented as of this encounter Visit Diagnoses Not on filedocumented in this encounter Care Teams Pinking Machine Operator Relationship Specialty Start Date End Date Deisi Andrews MD [address] [place] [address] [place] [address] PCP - General FAMILY PRACTICE 02/13/17 03/10/17 Asa Mcnamara MD [facility]. [facility] [address] [place] [address] Stephen Sanding Supervisor CARDIOVASCULAR DISEASE 05/15/16 documented as of this encounter
--- OUTSIDE RECORDS SUMMARY | 2024-11-12 04:48 | XMS_ITS | Encounter Summary ---
Author Organization [facility] Address [facility]6 [facility] [place], [place] [address] [place] [address] Care Team Providers Care Theater Usher Name Role Phone Dane Sullivan DO Primary Care Provider + [phone] Asa Mcnamara MD Unavailable [phone] Deisi Andrews MD Primary Care Provider [phone] Heber Adorno MD Primary Care Provider Unavailable Deisi Andrews MD Primary Care Provider [phone] Encounter Details Date Type Department Care Team (Latest Contact Info) Description 02/09/2017 Abstract [facility] Social History Tobacco Use Types Packs/Day Years Used Date Smoking Tobacco: Every Day Cigarettes Smokeless Tobacco: Never Comments:3 cig a day Alcohol Use Standard Drinks/Week Comments No 0 (1 standard drink = 0.6 oz pur e alcohol) Comments Unknown Sex and Gender Information Value Date Recorded Sex Assigned at Female 12/06/2019 3:36 PM VISUAL SUPERVISOR Legal Sex Female 5:20 PM CDT Gender Identity Female 12/06/2019 3:36 PM VISUAL SUPERVISOR Sexual Orientation Straight 12/06/2019 3: 36 PM VISUAL SUPERVISOR Occupation Industry Job Start Date Job End Date Not on file Not on file Not on file Not on file documented as of this encounter Plan of Treatment Not on file documented as of this encounter Visit Diagnoses Not on filedocumented in this encounter Care Teams Theater Usher Relationship Specialty Start Date End Date Dane Sullivan DO PCP - General FAMILY PRACTICE 05/15/16 02/11/17 Deisi Andrews MD [address] [place] [address] PCP - General FAMILY PRACTICE 02/13/17 03/10/17 Heber Adorno MD PCP - General 03/11/17 06/14/17 Deisi Andrews MD [address] [place] [address] PCP - General FAMILY PRACTICE 06/15/17 10/14/19 Asa Mcnamara MD [facility] [address] [place] [address] Stephen Motorcycle Mechanic Apprentice CARDIOVASCULAR DISEASE 05/15/16 documented as of this encounter
--- OUTSIDE RECORDS SUMMARY | 2024-11-12 04:48 | XMS_ITS | Encounter Summary ---
Author Organization [facility] Address [address] [facility]. [place], [place] [address] [place] [address] Care Team Providers Care Hazmat Truck Driver Name Role Phone Dane Sullivan DO Primary Care Provider [phone] Asa Mcnamara MD Unavailable [phone] Deisi Andrews MD Primary Care Provider [phone] Heber Adorno MD Primary Care Provider Unavailable Deisi Andrews MD Primary Care Provider [phone] Encounter Details Date Type Department Care Team (Latest Contact Info) Description 09/02/2016 Abstract [facility] Dane Sullivan DO [address] [address] Social History Tobacco Use Types Packs/Day Years Used Date Smoking Tobacco: Every Day Cigarettes Smokeless Tobacco: Never Comments:3 cig a day Alcohol Use Standard Drinks/Week Comments No 0 (1 standard drink = 0.6 oz pur e alcohol) Comments Unknown Sex and Gender Information Value Date Recorded Sex Assigned at Female 12/06/2019 3:36 PM UNCRATER Legal Sex Female 5:20 PM CDT Gender Identity Female 12/06/2019 3:36 PM UNCRATER Sexual Orientation Straight 12/06/2019 3: 36 PM UNCRATER Occupation Industry Job Start Date Job End [...] documented in this encounter Results * (ABNORMAL) COMPREHENSIVE METABOLIC PANEL (09/02/2016 8:13 AM CDT) SODIUM S/P/B 144 136 - 145 mmol/L [facility] TO EPIC CONVERSION POTASSIUM S/P/B 3.8 3.5 - 5.1 mmol/L [facility] TO EPIC CONVERSION CHLORIDE S/P/B 103 98 - 107 mmol/L [facility] TO [facility]IC CONVERSION CO2 26 22 - 29 mmol/L [facility] TO EPIC CONVERSION ANION GAP 19 8 - 20 [facility] T O EPIC CONVERSION BUN 13 8 - 23 mg/dL [facility] TO EPIC CONVERSION CREATININE S/P/B 0.68 0.60 - 1.10 mg/dL [facility] TO EPIC CONVERSION GFR ESTIMATE >60 >60 mL/min/1 .73m'2 [facility] TO EPIC CONVERSION EGFR AFR. AMER. >60 NOTE: eGFR is not calculated for patients <18 years of age. This is an estimated GFR (CKD EPI) and should not be used for calculating drug doses. >60 mL/min/1 .73m'2 [facility] TO EPIC CONVERSION GLUCOSE 133(H) 70 - 99 mg/dL [facility] TO [facility] CONVERSION CALCIUM S/P/B 8.7 8.6 - 10.2 mg/dL [facility] TO EPIC CONVERSION BILIRUBIN TOTAL S/P/B 0.3 0.2 - 1.2 mg/dL [facility] TO EPIC CONVERSION AST 14 0 - 32 U/L [facility] TO EPIC CONVERSION ALT 13 0 - 33 U/L [facility] TO EPIC CONVERSION ALKALINE PHOSPHATASE S/P/B 102 35 - 104 U/L [facility] TO EPIC CONVERSION TOTAL PROTEIN S/P/B 7.0 6.4 - 8.3 g/dL [facility] TO EPIC CONVERSION ALBUMIN S/P/B 4.2 3.5 - 5.2 g/dL [facility] TO EPIC CONVERSION GLOBULIN 2.8 2.3 - 3.6 g/dL [facility] TO EPIC CONVERSION A/G RATIO 1.5 1.0 - 2.0 [facility] TO [facility]IC CONVERSION 09/02/2016 8:13 AM CDT 09/02/2016 8:13 AM CDT Narrative [facility] TO [facility] CONVERSION - 09/02/2016 9:17 AM CDT Result Communication: No patient communication needed at this time Dane Sulliavn DO LABORATORY Final Result [facility] TO [facility]IC CONVERSION * TSH W/REFLEX (SNS) (09/02/2016 8:13 AM CDT) TSH 3.99 0.27 - 4.20 mIU/mL [facility] TO [facility] CONVERSION Comment:Result Comment: FREE T4 NOT INDICATED 09/02/2016 8:13 AM CDT 09/02/2016 8:13 AM CDT Narrative [facility] TO [facility] CONVERSION - 09/02/2016 9:17 AM CDT Result Communication: No patient communication needed at this time Dane Sullivan DO LABORATORY Final Result [facility] TO EPIC CONVERSION * (ABNORMAL) CBC W/DIFF AUTOMATED (09/02/2016 8:13 AM CDT) WBC 9.4 4.8 - 10.8 X10'3/uL [facility] TO EPIC CONVERSION RBC 4.72 4.20 - 5.40 X10'6/uL [facility] TO EPIC CONVERSION HGB 12.8 12.0 - 16.0 g/dL [facility] TO EPIC CONVERSION HCT 39.5 38.0 - 48.0 % [facility] TO EPIC CONVERSION MCV 83.7 81.0 - 99.0 fL [facility] TO EPIC CONVERSION MCH 27.1 27.0 - 31.0 pg [facility] TO EPIC CONVERSION MCHC 32.4 32.0 - 36.0 g/dL [facility] TO EPIC CONVERSION RDW 13.6 11.5 - 14.5 % [facility] TO EPIC CONVERSION PLT 214 130 - 400 X10'3/uL [facility] TO EPIC CONVERSION GLUCOSE 9.7 9.3 - 12.2 fL [facility] TO EPIC CONVERSION BASOPHILS % 0.3 0.0 - 1.0 % [facility] TO EPIC CONVERSION EOSINOPHILS % 3.4(H) 1.0 - 3.0 % [facility] TO EPIC CONVERSION NEUTROPHILS % 66.7(H) 43.0 - 65.0 % [facility] TO EPIC CONVERSION LYMPHOCYTES % 21.1 20.0 - 46.0 % [facility] TO EPIC CONVERSION IMMATURE GRANS % 0.5 0.0 - 1.0 % [facility] TO EPIC CONVERSION DIFFERENTIAL TYPE AUTOMATED [facility] TO [facility] CONVERSION MONOCYTES 8.0 5.0 - 12.0 % [facility] TO EPIC CONVERSION 09/02/2016 8:13 AM CDT 09/02/2016 8:13 AM CDT Narrative [facility] TO [facility] CONVERSION - 09/02/2016 8:58 AM CDT Result Communication: No patient communication needed at this time Dane Sullivan DO LABORATORY Final Result [facility] CONVERSION documented in this encounter Visit Diagnoses Not on filedocumented in this encounter Care Teams Hazmat Truck Driver Relationship Specialty Start Date End Date Dane Sullivan DO PCP - General FAMILY PRACTICE 05/15/16 02/11/17 Deisi Andrews MD [address] [place] [address] PCP - General FAMILY PRACTICE 02/13/17 03/10/17 , Heber Trinidad MD PCP - General 03/11/17 06/14/17 Deisi Andrews MD [address] [place] [address] PCP - General FAMILY PRACTICE 06/15/17 10/14/19 Asa Mcnamara MD [facility] [address] [place] [address] [place] Hemstitching Machine Operator CARDIOVASCULAR DISEASE 05/15/16 documented as of this encounter
--- OUTSIDE RECORDS SUMMARY | 2024-11-12 04:48 | XMS_ITS | Encounter Summary ---
Author Organization [facility] Address [address] [facility] [place] [address] [place] [address] Care Team Providers Care Insecticide Supervisor Name Role Phone Dane Sullivan Primary Care Provider [phone] Asa Mcnamara MD Unavailable [phone] Reason for Visit * Reason Onset Date Comments Reschedule 08/12/2016 Encounter Details Date Type Department Care Team (Late st Contact Info) Description 08/12/2016 Telephone [facility] AT [address] [address] Asa Mcnamara MD [address] [address] Reschedule Social History Tobacco Use Types Packs/Day Years Used Date Smoking Tobacco: Every Day Cigarettes Smokeless Tobacco: Never Comments:3 cig a day Alcohol Use Standard Drinks/Week Comments No 0 (1 standard drink = 0.6 oz pur e alcohol) Comments Unknown Sex and Gender Information Value Date Recorded Sex Assigned at Female 12/06/2019 3:36 PM CORRECTION OFFICER SUPERVISOR Legal Sex Female 5:20 PM CDT Gender Identity Female 12/06/2019 3:36 PM CORRECTION OFFICER SUPERVISOR Sexual Orientation Straight 12/06/2019 3: 36 PM CORRECTION OFFICER SUPERVISOR Occupation Industry Job Start Date Job End Date Not on file Not on file Not on file Not on file documented as of this encounter Progress Notes * Porsha M Rist - 08/12/2016 11:42 AM CDT Patient contacted to change time of appointment from 2 pm to 1:15 pm documented in this encounter Plan of Treatment Not on file documented as of this encounter Visit Diagnoses Not on filedocumented in this encounter Care Teams Insecticide Supervisor Relationship Specialty Start Date End Date Dane Sullivan DO PCP - General FAMILY PRACTICE 05/15/16 02/11/17 Asa Mcnamara MD [address] [address] [place] Sewing Machine Operator CARDIOVASCULAR DISEASE 05/15/16 documented as of this encounter
--- OUTSIDE RECORDS SUMMARY | 2024-11-12 04:48 | XMS_ITS | Encounter Summary ---
Author Organization [facility] Address [address] [place] [address] [place] [address] Care Team Providers Care Cooling Tower Technician Name Role Phone Dane Sullivan Primary Care Provider [phone] Asa Mcnamara MD Unavailable [phone] Reason for Visit * Reason Onset Date Comments Refill Request 11/06/2016 Nitrostat Encounter Details Date Type Department Care Team (Late st Contact Info) Description 11/06/2016 Telephone [facility] AT [address] [address] Asa Mcnamara MD [address] [address] Refill Request (Nitrostat) Social History Tobacco Use Types Packs/Day Years Used Date Smoking Tobacco: Every Day Cigarettes Smokeless Tobacco: Never Comments:3 cig a day Alcohol Use Standard Drinks/Week Comments No 0 (1 standard drink = 0.6 oz pur e alcohol) Comments Unknown Sex and Gender Information Value Date Recorded Sex Assigned at Female 12/06/2019 3:36 PM LABORER VINEYARD Legal Sex Female 5:20 PM CDT Gender Identity Female 12/06/2019 3:36 PM LABORER VINEYARD Sexual Orientation Straight 12/06/2019 3: 36 PM LABORER VINEYARD Occupation Industry Job Start Date Job End Date Not on file Not on file Not on file Not on file documented as of this encounter Plan of Treatment Not on file documented as of this encounter Visit Diagnoses Not on filedocumented in this encounter Care Teams Cooling Tower Technician Relationship Specialty Start Date End Date Dane Sullivan DO PCP - General FAMILY PRACTICE 05/15/16 02/11/17 Asa Mcnamara MD [facility]. [facility] [address] [place] [address] [place] Clinical Safety Specialist CARDIOVASCULAR DISEASE 05/15/16 documented as of this encounter
--- OUTSIDE RECORDS SUMMARY | 2024-11-12 04:48 | XMS_ITS | Encounter Summary ---
Author Organization [facility] Address [facility] access hospital[facility]. [place], [place] [address] [place] [address] Care Team Providers Care Combo Welder Name Role Phone Asa Mcnamara MD Unavailable [phone] Deisi Andrews MD Primary Care Provider [phone] Heber Adorno MD Primary Care Provider Unavailable Deisi Andrews MD Primary Care Provider [phone] Encounter Details Date Type Department Care Team (Latest Contact Info) Description 03/09/2017 Abstract [facility] Social History Tobacco Use Types Packs/Day Years Used Date Smoking Tobacco: Every Day Cigarettes Smokeless Tobacco: Never Comments:3 cig a day Alcohol Use Standard Drinks/Week Comments No 0 (1 standard drink = 0.6 oz pur e alcohol) Comments Unknown Sex and Gender Information Value Date Recorded Sex Assigned at Female 12/06/2019 3:36 PM ENGINEER AND GEOLOGIST Legal Sex Female 5:20 PM CDT Gender Identity Female 12/06/2019 3:36 PM ENGINEER AND GEOLOGIST Sexual Orientation Straight 12/06/2019 3: 36 PM ENGINEER AND GEOLOGIST Occupation Industry Job Start Date Job End Date Not on file Not on file Not on file Not on file documented as of this encounter Plan of Treatment Not on file documented as of this encounter Visit Diagnoses Not on filedocumented in this encounter Care Teams Combo Welder Relationship Specialty Start Date End Date Deisi Andrews MD [address] [place] [address] PCP - General FAMILY PRACTICE 02/13/17 03/10/17 Heber Adorno MD PCP - General 03/11/17 06/14/17 Deisi Andrews MD [address] [place] [address] [place] [address] PCP - General FAMILY PRACTICE 06/15/17 10/14/19 Asa Mcnamara MD [facility]. [facility] [address] [place] [address] [place] Cabbage Salter CARDIOVASCULAR DISEASE 05/15/16 documented as of this encounter
--- OUTSIDE RECORDS SUMMARY | 2024-11-12 04:48 | XMS_ITS | Encounter Summary ---
Author Organization [facility] Address [address] [facility]. [place], [place] [address] [place] [address] Care Team Providers Care Avionics Mechanic Name Role Phone Dane Sullivan Primary Care Provider [phone] Asa Mcnamara MD Unavailable [phone] Reason for Referral * Imaging (Routine) - Closed Specialty Diagnoses / Procedures Referred By Contac t Referred To Contact CARDIOLOGY Diagnoses PVD (peripheral vascular disease) (CMS/HCC) Pure hypercholesterolemia Essential (primary) hypertension Stenosis of left carotid artery Procedures USV ARTERIAL STRESS LOW EXT Asa Mcnamara MD [facility]. [address] [address] Phone: tel: fax: [facility] [address] Phone: tel: Referral ID Status Reason Start Date Expiration Date Visits Re quested Visits Authorized [id number] Closed 08/12/2016 03/14/2017 1 1 * Imaging (Routine) - Closed Specialty Diagnoses / Procedures Referred By Contac t Referred To Contact CARDIOLOGY Diagnoses PVD (peripheral vascular disease) (CMS/HCC) Pure hypercholesterolemia Essential (primary) hypertension Stenosis of left carotid artery Procedures US AORTA DUPLEX COMP Asa Mcnamara MD [address] [address] Phone: tel: fax: [address] [address] Phone: tel: Referral ID Status Reason Start Date Expiration Date Visits Re quested Visits Authorized [id number] Closed 08/12/2016 03/14/2017 1 1 * Procedure (Routine) - Closed Specialty Diagnoses / Procedures Referred By Nacho t Referred To Contact CARDIOLOGY Diagnoses Stenosis of left carotid artery Procedures USV CAROTID DUPLEX DILEEP Asa Mcnamara MD [address] [address] Phone: tel: fax: [address] [address] Phone: tel: Referral ID Status Reason Start Date Expiration Date Visits Re quested Visits Authorized [id number] Closed 08/12/2016 09/14/2016 1 1 Reason for Visit * Reason Comments Peripheral Vascular Disease follow up pr ocedure Hypertension Lipids Encounter Details Date Type Department Care Team (Late st Contact Info) Description 08/12/2016 1:15 PM CDT Office Visit [facility] AT [address] [address] Asa Mcnamara MD [address] [id number] Peripheral Vascular Disease (follow up procedure); Hypertension; Lipids Social History Tobacco Use Types Packs/Day Years Used Date Smoking Tobacco: Every Day Cigarettes Smokeless Tobacco: Never Comments:3 cig a day Alcohol Use Standard Drinks/Week Comments No 0 (1 standard drink = 0.6 oz pur e alcohol) Comments Unknown Sex and Gender Information Value Date Recorded Sex Assigned at Female 12/06/2019 3:36 PM REGIONAL SALES COORDINATOR Legal Sex Female 5:20 PM CDT Gender Identity Female 12/06/2019 3:36 PM REGIONAL SALES COORDINATOR Sexual Orientation Straight 12/06/2019 3: 36 PM REGIONAL SALES COORDINATOR Occupation Industry Job Start Date Job End Date Not on file Not on file Not on file Not on file documented as of this encounter Last Filed Vital Signs Vital Sign Reading Time Taken Comments Blood Pressure 120/66 08/12/2016 1:37 PM CDT Pulse 96 08/12/2016 1:37 PM CDT Temperature - - Respiratory Rate - - Oxygen Saturation 96% 08/12/2016 1:37 PM CDT Inhaled Oxygen Concentration - - Weight 98.9 kg (218 lb) 08/12/2016 1:37 PM CDT Height 160 cm (5' 3 ) 08/12/2016 1:37 PM CDT Body Mass Index 38.62 08/12/2016 1:37 PM CDT documented in this encounter Progress Notes * Asa Mcnamara MD - 08/12/2016 2:14 PM CDT * Asa Mcnamara MD - 08/12/2016 1:15 PM CDT Chief Complaint: Peripheral Vascular Disease (follow up procedure); Hypertension; and Lipids Recommendations/Plan: ASSESSMENT: 1. Bilateral lower extremity peripheral vascular disease, bilateral iliac stents in 06/2016. ?? 2. Bilateral carotid artery disease, left carotid endarterectomy in 2014. 3. History of stroke. 4. Hypertension, well controlled. ?? 5. Dyslipidemia, on statin. ?? 6. Type 2 diabetes mellitus. ?? 7. Likely COPD. ?? 8. 40+ pack year history of smoking. ?? 9. Bilateral knee arthritis, possible surgery in the future. ? RECOMMENDATIONS/PLAN: The claudication symptoms have significantly improved. Repeat noninvasive studies show normal KENZIE bilaterally now. Continue aspirin. I have advised her to continue clopidogrel for another two months which would be three months after the stent implantation. She thinks cilostazol is helping with her symptoms. There is some benefit of cilostazol in preventing in-stent restenosis. Will continue cilostazol for now. She is not having any bleeding issues. Counseled about quittingsmoking. Blood pressure is well controlled. She is on moderate intensity statin. ? The chest pain is atypical. Symptoms are infrequent. Recent stress test showed normal myocardial perfusion. We will continue with risk factor modification. ??Ms. Zaidi had left carotid endarterectomyin 2014. She has not had recent follow up. On examination she has a moderate intensity left carotidbruit. I will order a duplex ultrasound for further evaluation. ? History is suggestive of sleep apnea. She may benefit from an outpatient sleep study. ? It has been my pleasure to participate in Ms. Zaidi's care. She will return for a follow up visit in 6 months, earlier if needed. ??History of Present Illness: Ms. Zaidi is a pleasant 55-year-old female with type 2 diabetes mellitus, hypertension and dyslipidemia. She underwent bilateral iliac stents in 06/2016. She returns for her first office visit since the procedure. She reports improvement in her claudication symptoms. She is now able to walk half a block and denies any significant discomfort in the legs. She has sciatica and continues to have low back and joint pain. She remains quite sedentary. She started doing water aerobics but subsequently had a fall and fractured her left arm. Her left arm is still in the cast. She is trying to quit smoking. She is now down to 3-4 cigarettes a day. She occasionally complains of chest pain. Description is very atypical. She has a sharp pain on the right side, not related to exertion. Symptoms usually last a few seconds. She denies orthopnea, paroxysmal nocturnal dyspnea, lower extremity swelling. ? DATA REVIEWED: Arterial Doppler done 08/05/16 shows KENZIE 1.16 in the right leg with a TBI of 0.68. KENZIE 1.11 in the left leg with a TBI of 0.62. Significant improvement compared to prior study from 04/17/16. ? Aortoiliac duplex done 08/05/16 shows moderate plaque in the infrarenal abdominal aorta with PSV of194 cm/s. Bilateral common iliac stents are patent. Moderate plaque in left internal iliac artery with PSV of 332 cm/s. ? Vascular angiogram done 06/05/16 shows 70% ostial stenosis in right common iliac artery with a 30-35 mmHg gradient. Mild disease in left common iliac artery. ? On 07/01/16 she underwent bilateral iliac stents. [...] 69%. ? Medications: Current Outpatient Prescriptions: ??? albuterol sulfate HFA (VENTOLIN HFA) 108 (90 BASE) MCG/ACT inhaler, Take 1 tablet by mouth daily., Disp: , Rfl: ??? ALPRAZolam (XANAX) 1 MG tablet, take 1 tablet by mouth three times a day, Disp: , Rfl: ??? amlodipine 5 MG tablet, Take 1 tablet by mouth daily., Disp: , Rfl: ??? aspirin 81 MG tablet, Take 1 tablet (81 mg total) by mouth daily., Disp: , Rfl: ??? beclomethasone (QVAR) 40 MCG/ACT inhaler, take as directed twice a day, Disp: 1 Inhaler, Rfl: ??? cilostazol 100 MG tablet, Take 1 tablet (100 mg total) by mouth 2 (two) times daily., Disp: 60 tablet, Rfl: 3 ??? clopidogrel 75 MG tablet, Take 1 tablet (75 mg total) by mouth daily., Disp: 30 tablet, Rfl: 3 ??? cyclobenzaprine 10 MG tablet, Take 1 tablet three times a day, Disp: , Rfl: 0 ??? fexofenadine (SAMANTHA ALLERGY) 180 MG tablet, as directed, Disp: , Rfl: ??? fluoxetine (PROZAC) 20 MG capsule, Take 1 capsule by mouth daily., Disp: , Rfl: ??? hydrocodone-acetaminophen 10-325 MG per tablet, take 1 tablet by mouth three times a day, Disp:, Rfl: ??? ibuprofen 600 MG tablet, take 1 tablet by mouth 2-3 times a day, Disp: , Rfl: ??? ISOSORBIDE MONONITRATE ER 30 MG 24 hr tablet, TAKE ONE TABLET BY MOUTH ONCE DAILY, Disp: 30 tablet, Rfl: 2 ??? losartan 100 MG tablet, Take 1 tablet by mouth daily., Disp: , Rfl: ??? metFORMIN 500 MG tablet, Take 1 tablet by mouth 2 (two) times daily., Disp: , Rfl: ??? METOPROLOL SUCCINATE 25 MG 24 hr tablet, TAKE ONE TABLET BY MOUTH ONCE DAILY, Disp: 30 tablet, Rfl: 2 ??? montelukast 10 MG tablet, Take 1 tablet (10 mg total) by mouth nightly at bedtime., Disp: , Rfl: ??? Multiple Vitamins-Minerals (PRESERVISION AREDS) capsule, Take 1 capsule by mouth 2 (two) times daily., Disp: , Rfl: ??? nitroGLYCERIN 0.4 MG SL tablet, place 1 tablet under tongue, for chest pain as needed up to 3 doses 5 mins apart. If taking 3rd dose, call 911., Disp: , Rfl: ??? omeprazole (PRILOSEC) 20 MG capsule, Take 1 tablet by mouth 2 (two) times daily., Disp: , Rfl: ??? pravastatin 40 MG tablet, Take 1 tablet by mouth daily., Disp: , Rfl: Allergies Allergen Reactions ??? Haloperidol Seizure ??? Penicillins Redness ??? Resperal-Dm [Hhl-[id number] Upzwsz-Dzq-[id number]] Seizure ??? Triazolam Seizure Past Medical History Diagnosis Date ??? Arthritis ??? Asthma ??? Chest pain, unspecified ??? Diabetes ??? Emphysema/COPD ??? Essential (primary) hypertension ??? GERD (gastroesophageal reflux disease) ??? Hypercholesterolemia ??? Migraines ??? PVD (peripheral vascular disease) ??? Stroke h/o Past Surgical History Procedure Laterality Date ??? Gallbladder surgery 2007 removal ??? section 1989 ??? Tubal ligation 1989 ??? Other procedure 2012 warts removed ??? Other procedure 2013 tube in left ear ??? Ir angioplasty peripheral Social History Social History ??? Marital status: Single Spouse name: N/A ??? Number of children: 2 ??? 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 Smoking status: Current Every Day Smoker Types: Cigarettes ??? Smokeless tobacco: Never Used Comment: 3 cig a day ??? Alcohol use No [...] vision and double vision. Respiratory: Positive for cough. Negative for hemoptysis and wheezing. Cardiovascular: Negative for chest pain and palpitations. Gastrointestinal: Negative for blood in stool and melena. Genitourinary: Negative for dysuria. Musculoskeletal: Positive for joint pain and myalgias. Skin: Negative for rash. Neurological: Positive for tingling, weakness and headaches. Negative for sensory change and focal weakness. Endo/Heme/Allergies: Positive for polydipsia. Does not bruise/bleed easily. Filed Vitals: 08/12/16 1337 BP: 120/66 Pulse: 96 SpO2: 96% Weight: 98.9 kg (218 lb) Height: 5' 3 (1.6 m) Physical Exam Constitutional: She is oriented to person, place, and time. She appears well- developed and well-nourished. No distress. HENT: Nose: No mucosal edema. Mouth/Throat: Oropharynx is clear and moist and mucous membranes are normal. No oropharyngeal exudate. Neck: Neck supple. No JVD present. Carotid bruit is not present. Cardiovascular: Normal rate, regular rhythm, S1 normal, S2 normal and intact distal pulses. No extrasystoles are present. Exam reveals no gallop. No murmur heard. Pulses: Carotid pulses are on the left side with bruit. Posterior tibial pulses are 2+ on the [...] 08/12/16. Diagnoses/Impression: 1. PVD (peripheral vascular disease) US AORTA DUPLEX COMP USV ART EXER W KENZIE LOW EXT US AORTA DUPLEX COMP USV ART EXER W KENZIE LOW EXT 2. Pure hypercholesterolemia US AORTA DUPLEX COMP USV ART EXER W KENZIE LOW EXT US AORTA DUPLEX COMP USV ART EXER W KENZIE LOW EXT 3. Essential (primary) hypertension US AORTA DUPLEX COMP USV ART EXER W KENZIE LOW EXT US AORTA DUPLEX COMP USV ART EXER W KENZIE LOW EXT 4. Stenosis of left carotid artery USV CAROTID DUPLEX DILEEP US AORTA DUPLEX COMP USV ART EXER W KENZIE LOW EXT USV CAROTID DUPLEX DILEEP US AORTA DUPLEX COMP USV ART EXER W KENZIE LOW EXT documented in this encounter Plan of Treatment Scheduled Orders Name Type Priority Associated Diagnoses Orde r Schedule USV CAROTID DUPLEX DILEEP US VASC Routine Stenosis of left carotid artery Expected: 08/25/2016, Expires: 08/12/2017 US AORTA DUPLEX COMP Ultrasound Routine PVD (peripheral vascular disease) Pure hypercholesterolemia Essential (primary) hypertension Stenosis of left carotid artery Expected: 02/09/2017, Expires: 08/12/2017 USV ARTERIAL STRESS LOW EXT US VASC Routine PVD (peripheral vascular disease) Pure hypercholesterolemia Essential (primary) hypertension Stenosis of left carotid artery Expected: 02/09/2017, Expires: 08/12/2017 documented as of this encounter Visit Diagnoses Diagnosis PVD (peripheral vascular disease) (CMS/HCC)- Primary Peripheral vascular disease, unspecified Pure hypercholesterolemia Essential (primary) hypertension Unspecified essential hypertension Stenosis of left carotid artery Occlusion and stenosis of carotid artery without mention of cerebral infarction documented in this encounter Care Teams Avionics Mechanic Relationship Specialty Start Date End Date Dane Sullivan DO PCP - General FAMILY PRACTICE 05/15/16 02/11/17 Asa Mcnamara MD [facility]. [facility] [address] [place] [address] [place] Commercial Collector CARDIOVASCULAR DISEASE 05/15/16 documented as of this encounter
--- OUTSIDE RECORDS SUMMARY | 2024-11-12 04:48 | XMS_ITS | Encounter Summary ---
Author Organization [facility] Address [facility]. [place], [place] [address] [place] [address] Care Team Providers Care Bin Piler Name Role Phone Dane Sullivan DO Primary Care Provider + [phone] Asa Mcnamara MD Unavailable [phone] Deisi Andrews MD Primary Care Provider [phone] Heber Adorno MD Primary Care Provider Unavailable Deisi Andrews MD Primary Care Provider [phone] Encounter Details Date Type Department Care Team (Latest Contact Info) Description 08/25/2016 Abstract [facility] Medical [facility] Heber Adorno MD Social History Tobacco Use Types Packs/Day Years Used Date Smoking Tobacco: Every Day Cigarettes Smokeless Tobacco: Never Comments:3 cig a day Alcohol Use Standard Drinks/Week Comments No 0 (1 standard drink = 0.6 oz pur e alcohol) Comments Unknown Sex and Gender Information Value Date Recorded Sex Assigned at Female 12/06/2019 3:36 PM SEWING DEMONSTRATOR Legal Sex Female 5:20 PM CDT Gender Identity Female 12/06/2019 3:36 PM SEWING DEMONSTRATOR Sexual Orientation Straight 12/06/2019 3: 36 PM SEWING DEMONSTRATOR Occupation Industry Job Start Date Job End Date Not on file Not on file Not on file Not on file documented as of this encounter Progress Notes * Dane Sullivan DO - 08/25/2016 6:30 PM CDT [place] [address] Patient: RODY CRUZ [facility] Rec#: [id number] Birthdate: 1960 Admit/Svce Date: 08/25/2016 Disch Date: Attending Md: ASA MCNAMARA MD CHART DOCUMENT CAROTID DUPLEX IMAGING VASCULAR LAB Pat.Name: RODY CRUZ [facility].ID: [id number] .Date: 08/25/2016 Exam Time: 10:06:00 AM Study Type:SCOTTIE VS Duplex Carotid BIDOB Age: 2 1960,55Y Sex: FEMALE Sonogrphr: Roxie Caba RVT Pat. Stat.:Outpatient History / Clinical:f/u carotid disease; HTN, HLD, DM, TOB, MO, CVA, CEA, PAD; ASA, Plavix, Eliquis Procedures:Qureshi scale, Color Doppler imaging, Doppler Spectral Analysis Race: C ++++++++++++++++++++++++++++++++++++ SUMMARY: ++++++++++++++++++++++++++++++++++++ Gail ICA Stenosis Criteria: >50% = PSV >160 and/or Ratio 2.0-4.0; >70% = PSV >325 and/or Ratio >4.0; >80% = PSV >325 with EDV >140 (for CCA, ECA, Subc: >50% = PSV >200, Ratio >2.0; for Vert: >50% = PSV >150, Ratio >2.2) Brachial waveforms are symmetrical bilaterally, with triphasic flow. The right subclavian artery is not assessed. The left subclavian artery is not assessed. Right side: The right bifurcation-internal carotid artery has mild, homogeneous plaque. Internal carotid maximum velocity is 93 cm/s , with a ratio of .91. The common carotid artery has no plaque present. The external carotid artery has minor plaque proximally. Vertebral artery flow is antegrade. No defined ulceration noted. Left side: The left bifurcation-internal carotid artery has no plaque. Internal carotid maximum velocity is 85 cm/s, with a ratio of 1.17 . The common carotid artery has no plaque present. The external carotid artery has severe plaque proximally. Vertebral artery flow is antegrade. No defined ulceration noted. CONCLUSION: The right internal carotid shows 1-49% stenosis. Right vertebral artery is antegrade. No evidence of ulceration. The left internal carotid shows no evident stenosis. Left vertebral artery is antegrade. No evidence of ulceration. Recommend follow up in 1 year. ++++++++++++++++++++++++++++++++++++ MEASUREMENTS: ++++++++++++++++++++++++++++++++++++ DOPPLER Right CCA Prox Prox CCA PSV 118 cm/s Right Dist CCA Dist CCA PSV 97 cm/s Right Prox ICA Prox ICA PSV 93 cm/s Right Mid ICA Mid ICA PSV 49 cm/s Right Dist ICA Dist ICA PSV 60 cm/s Right Prox ECA Prox ECA PSV 107 cm/s Right Bifurcation Bifurcation PSV 69 cm/s Right Vertebral Vertebral PSV 42 cm/s Right Prox SCA Prox SCA PSV 185 cm/s Right ICA/CCA RATIO ICA/CCA RATIO P 0.959 Left CCA Prox Prox CCA PSV 102 cm/s Left Dist CCA Dist CCA PSV 66 cm/s Left Prox ICA Prox ICA PSV 74 cm/s Left Mid ICA Mid ICA PSV 85 cm/s Left Dist ICA Dist ICA PSV 77 cm/s Prox ECA Prox ECA PSV 458 cm/s Prox ECA EDV 84 cm/s Left Bifurcation Bifurcation PSV 87 cm/s Left Vertebral Vertebral PSV 42 cm/s Left Prox SCA Prox SCA PSV 169 cm/s Left ICA/CCA RATIO ICA/CCA RATIO P 1.17 Signed 08/25/2016 06:27 PM Caesar Aguayo M.D. cc: Michelle ISLAS D.O. documented in this encounter Plan of Treatment Not on file documented as of this encounter Visit Diagnoses Not on filedocumented in this encounter Care Teams Bin Piler Relationship Specialty Start Date End Date Dane Sullivan DO PCP - General FAMILY PRACTICE 05/15/16 02/11/17 Deisi Andrews MD [address] [place] [address] PCP - General FAMILY PRACTICE 02/13/17 03/10/17 Heber Adorno MD PCP - General 03/11/17 06/14/17 Deisi Andrews MD [address] [place] [address] PCP - General FAMILY PRACTICE 06/15/17 10/14/19 Asa Mcnamara MD [facility]. [facility] [address] [place] [address] Stephen Recycling Technician CARDIOVASCULAR DISEASE 05/15/16 documented as of this encounter
--- OUTSIDE RECORDS SUMMARY | 2024-11-12 04:48 | XMS_ITS | Encounter Summary ---
Author Organization [facility] Address [facility]. [place], [place] [address] [place] [address] Care Team Providers Care Stem Dryer Maintainer Name Role Phone Dane Sullivan Primary Care Provider + [phone] Asa Mcnamara MD Unavailable [phone] Deisi Andrews MD Primary Care Provider [phone] Heber Adorno MD Primary Care Provider Unavailable Deisi Andrews MD Primary Care Provider [phone] Encounter Details Date Type Department Care Team (Late st Contact Info) Description 08/25/2016 Abstract [facility] [address] [place], [place] [id number] Asa Mcnamara MD [facility]. [facility] [address] [place], [place] [id number] Social History Tobacco Use Types Packs/Day Years Used Date Smoking Tobacco: Every Day Cigarettes Smokeless Tobacco: Never Comments:3 cig a day Alcohol Use Standard Drinks/Week Comments No 0 (1 standard drink = 0.6 oz pur e alcohol) Comments Unknown Sex and Gender Information Value Date Recorded Sex Assigned at Female 12/06/2019 3:36 PM TRAINING ASSISTANT Legal Sex Female 5:20 PM CDT Gender Identity Female 12/06/2019 3:36 PM TRAINING ASSISTANT Sexual Orientation Straight 12/06/2019 3: 36 PM TRAINING ASSISTANT Occupation Industry Job Start Date Job End Date Not on file Not on file Not on file Not on file documented as of this encounter Plan of Treatment Not on file documented as of this encounter Visit Diagnoses Diagnosis Occlusion and stenosis of right carotid artery Occlusion and stenosis of carotid artery without mention of cerebral infarction documented in this encounter Care Teams Stem Dryer Maintainer Relationship Specialty Start Date End Date Dane Sullivan DO PCP - General FAMILY PRACTICE 05/15/16 02/11/17 Deisi Andrews MD [address] [place] [address] PCP - General FAMILY PRACTICE 02/13/17 03/10/17 Heber Adorno MD PCP - General 03/11/17 06/14/17 Deisi Andrews MD [address] [place] [address] PCP - General FAMILY PRACTICE 06/15/17 10/14/19 Asa Mcnamara MD [facility] [address] [place] [address] [place] Form Stripper CARDIOVASCULAR DISEASE 05/15/16 documented as of this encounter
--- OUTSIDE RECORDS SUMMARY | 2024-11-12 04:48 | XMS_ITS | Encounter Summary ---
Author Organization [facility] Address [facility]. [place], [place] [address] [place] [address] Care Team Providers Care Boiler Setter Name Role Phone Dane Sullivan DO Primary Care Provider + [phone] Asa Mcnamara MD Unavailable [phone] Deisi Andrews MD Primary Care Provider [phone] Heber Adorno MD Primary Care Provider Unavailable Deisi Andrews MD Primary Care Provider [phone] Encounter Details Date Type Department Care Team (Latest Contact Info) Description 08/31/2016 Abstract [facility] Medical Group Social History Tobacco Use Types Packs/Day Years Used Date Smoking Tobacco: Every Day Cigarettes Smokeless Tobacco: Never Comments:3 cig a day Alcohol Use Standard Drinks/Week Comments No 0 (1 standard drink = 0.6 oz pur e alcohol) Comments Unknown Sex and Gender Information Value Date Recorded Sex Assigned at Female 12/06/2019 3:36 PM TRAVEL REGISTERED NURSE ONCOLOGY Legal Sex Female 5:20 PM CDT Gender Identity Female 12/06/2019 3:36 PM TRAVEL REGISTERED NURSE ONCOLOGY Sexual Orientation Straight 12/06/2019 3: 36 PM TRAVEL REGISTERED NURSE ONCOLOGY Occupation Industry Job Start Date Job End Date Not on file Not on file Not on file Not on file documented as of this encounter Plan of Treatment Not on file documented as of this encounter Visit Diagnoses Not on filedocumented in this encounter Care Teams Boiler Setter Relationship Specialty Start Date End Date Dane Sullivan DO PCP - General FAMILY PRACTICE 05/15/16 02/11/17 Deisi Andrews MD [address] [place] [address] PCP - General FAMILY PRACTICE 02/13/17 03/10/17 Heber Adorno MD PCP - General 03/11/17 06/14/17 Deisi Andrews MD [address] [place] [address] PCP - General FAMILY PRACTICE 06/15/17 10/14/19 Asa Mcnamara MD [facility] [address] [place] [address] Stephen Casualty Insurance Claim Adjuster CARDIOVASCULAR DISEASE 05/15/16 documented as of this encounter
--- OUTSIDE RECORDS SUMMARY | 2024-11-12 04:48 | XMS_ITS | Encounter Summary ---
Author Organization [facility] Address [address] [facility] [place] [address] [place] [address] Care Team Providers Care Web Ui Developer Name Role Phone Asa Mcnamara MD Unavailable [phone] Heber Adorno MD Primary Care Provider Unavailable Reason for Referral * Imaging (Routine) - Closed Specialty Diagnoses / Procedures Referred By Contac t Referred To Contact CARDIOLOGY Diagnoses PVD (peripheral vascular disease) with claudication (CMS/HCC) Procedures IR ABD WITH RUNOFF Asa Mcnamara MD [address] [address] Phone: tel: fax: [facility]- [address] [address] Phone: tel: Referral ID Status Reason Start Date Expiration Date Visits Re quested Visits Authorized [id number] Closed 03/22/2017 04/23/2017 1 1 Reason for Visit * Reason Comments Peripheral Vascular Disease Encounter Details Date Type Department Care Team (Late st Contact Info) Description 03/22/2017 11:15 AM CDT Office Visit [facility] AT [address] [address] Asa Mcnamara MD [address] [address] Peripheral Vascular Disease Social History Tobacco Use Types Packs/Day Years Used Date Smoking Tobacco: Every Day Cigarettes Smokeless Tobacco: Never Alcohol Use Standard Drinks/Week Comments No 0 (1 standard drink = 0.6 oz pur e alcohol) Comments Unknown Sex and Gender Information Value Date Recorded Sex Assigned at Female 12/06/2019 3:36 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 Legal Sex Female 5:20 PM CDT Gender Identity Female 12/06/2019 3:36 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 Sexual Orientation Straight 12/06/2019 3: 36 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 Occupation Industry Job Start Date Job End Date Not on file Not on file Not on file Not on file documented as of this encounter Last Filed Vital Signs Vital Sign Reading Time Taken Comments Blood Pressure 142/88 03/22/2017 12:09 PM CDT ta tamar by Pulse 85 03/22/2017 11:24 AM CDT Temperature - - Respiratory Rate - - Oxygen Saturation 98% 03/22/2017 11:24 AM CDT Inhaled Oxygen Concentration - - Weight 106.1 kg (234 lb) 03/22/2017 11:24 AM CDT Height 160 cm (5' 3 ) 03/22/2017 11:24 AM CDT Body Mass Index 41.45 03/22/2017 11:24 AM CDT documented in this encounter Patient Instructions * Patient Instructions* Bettina Cherry, A - 03/22/2017 11:15 AM CDT Images from the original note were not included. Index Vietnamese All??languages Related??topics Peripheral Artery Disease [place] ?? Peripheral artery disease is narrowing or blockage in the blood vessels in your pelvis, arms, orlegs. ?? Eating a healthy diet, exercising, not smoking, and keeping your blood pressure, blood sugar, and cholesterol at healthy levels may help. ?? Treatment may include taking medicines or having a procedure to open blood vessels and improve blood flow. What is peripheral artery disease? Peripheral artery disease (PAD) is a disease of the blood vessels, especially the ones that bring blood to the pelvis, arms, or legs. Blockage of these arteries can prevent blood flow to these areas. What is the cause? Fatty deposits called plaque may build up in blood vessels and make them narrower. The narrowing decreases the amount of blood flow to the body. Small pieces of plaque may break off from the wall of a blood vessel and completely block a smaller blood vessel. PAD happens when the clogged or blocked arteries cannot provide enough blood and oxygen for the body. Several factors can increase your risk of PAD: ?? Smoking ?? Heart disease ?? Diabetes ?? High levels of LDL (bad) cholesterol or triglycerides ?? High blood pressure ?? Family history of heart disease ?? Being overweight ?? Lack of exercise What are the symptoms? Symptoms may include: ?? Pain, cramping, or weakness in your legs, arms, or hands (these symptoms may occur when you exercise and go away when you rest) ?? Loss of feeling in the hands, legs, feet, or toes ?? Wounds on the legs or feet that heal slowly or don???t heal ?? Cold feet or hands ?? Erectile dysfunction How is it diagnosed? Your healthcare provider will ask about your symptoms and medical history and examine you. Tests to find blocked arteries may include: ?? Angiogram, which is a series of X-rays taken after your healthcare provider injects contrast dyeinto your blood vessels to show the calvin of the arteries and any blockage ?? Ultrasound, which uses sound waves to show pictures of the arteries ?? Ankle-brachial index, which uses blood pressure cuffs on the arms and legs to check blood flow How is it treated? Your healthcare provider may recommend changes in your lifestyle. Depending on your symptoms, your provider may also prescribe medicine to: ?? Try to prevent blood clots ?? Relax the blood vessels ?? Lower cholesterol ?? Help keep your blood pressure in a normal range ?? Control your blood sugar if you are diabetic If your symptoms cannot be controlled or they keep you from doing your normal activities, you may need a balloon angioplasty or bypass surgery. ?? A balloon angioplasty opens the blood vessel and improves blood flow. A metal mesh device calleda stent is usually left in the artery to help keep the blood vessel open. ?? Bypass surgery uses blood vessels from other parts of the body, or manmade material, to make a new path around a blocked area. If your disease is serious and bypass surgery and angioplasty are not recommended for you, your foot or leg may need to be removed (amputated). Amputation is usually necessary if you have so little blood flow that the skin and other tissues and you are at risk for life-threatening infection. Amp utation is a last resort, but if peripheral vascular disease is not controlled, it is a possible result. PAD can often be slowed or stopped if it is diagnosed early and the risk factors are controlled. Otherwise, it is a disease that will get worse unless you get treatment and do things to prevent plaque formation. How can I take care of myself? If you have peripheral artery disease, there are things you can do to take care of yourself now andprevent problems in the future. ?? Follow your healthcare provider???s directions for taking your medicine. Make sure you know how and when to take your medicine. Don???t take more or less than you are supposed to take. ?? Quit smoking if you are a smoker. One of nicotine's effects is narrowing and spasm of the arteries. Each cigarette you smoke decreases blood flow as the inhaled nicotine circulates in your blood. It can cause a blood clot, which could bring on a heart attack or stroke. ?? Make changes in your diet to help control cholesterol. For example, lower the amount of saturated and trans fats and cholesterol in your diet. Eat more whole grains, fruits, and vegetables. ?? Keep good control of your blood sugar if you have diabetes. ?? Stay physically active as advised by your provider. Physical activity can help you improve and keep good blood flow. Your provider may recommend an exercise program for you. When you are exercising, stop and rest if you have too much pain in your legs. Start walking again when the discomfort hasgone away. ?? Try to keep a healthy weight. If you are overweight, lose weight. ?? Take care not to hurt the affected legs or arms. Injuries will heal much more slowly. To preventinfection of the feet, inspect and care for them daily. If you have corns or calluses, get help from your healthcare provider or a field auto appraiser (foot press operator) to care for them safely. ?? Ask your healthcare provider: ?? How [...] all appointments for provider visits or tests. What can I do to help prevent peripheral artery disease? You can help prevent this disease with a heart-healthy lifestyle: ?? Get your blood pressure, blood sugar, and cholesterol levels checked regularly. Make sure you know what to do to keep them in a healthy range. ?? Take care of your health. Try to get at least 7 to 9 hours of sleep each night. Eat a healthy diet and try to keep a healthy weight. If you smoke, try to quit. If you want to drink alcohol, ask your healthcare provider how much is safe for you to drink. Learn ways to manage stress. Stay physically active as advised by your provider. Taking a low-dose aspirin every day may help prevent a heart attack or stroke. Not everyone should take aspirin. Ask your healthcare provider if you should take aspirin and if so, how much to take. Talk to your healthcare provider about your personal and family medical history and your lifestyle habits. This will help you know what you can do to lower your risk for peripheral artery disease. Developed by [employer]. Adult Advisor 2017.1 published by [employer]. Last modified: 2016-12-10 Last reviewed: 2016-06-02 This content is reviewed periodically and is subject to change as new health information becomes available. The information is intended to inform and educate and is not a replacement for medical evaluation, advice, diagnosis or treatment by a healthcare professional. References Adult Advisor 2017.1 Index Copyright ?? 2017 [employer], a division of [employer]. All rights reserved. documented in this encounter Progress Notes * Asa Mcnamara MD - 03/22/2017 11:15 AM CDT Chief Complaint: Peripheral Vascular Disease Recommendations/Plan: ASSESSMENT: 1. Bilateral lower extremity peripheral vascular disease, bilateral iliac stents in 06/2016. ?? 2. Bilateral carotid artery disease, left carotid endarterectomy in 2014. 3. History of stroke. 4. Hypertension, overall well controlled. ?? 5. Mixed hyperlipidemia, on statin. ?? 6. Type 2 diabetes mellitus. ?? 7. Likely COPD. ?? 8. 40+ pack year history of smoking. ?? 9. Bilateral knee arthritis, possible surgery in the future. ? RECOMMENDATIONS/PLAN: Ms. Zaidi reports recurrent claudication symptoms. Resting ABIs are normal, however there is significant exercise-induced drop on the right side. Duplex studies suggestive of moderate restenosis in the right common iliac artery. She is not able to walk more than 200 feet. Believe she needs further evaluation. She'll be scheduled for vascular angiogram and possible endovascular intervention. I explained the procedure, risks benefits, complications not limited to , myocardial infarction, stroke, bleeding, infection, limb loss and need for surgery. She verbalizes understanding and agrees to proceed. Continue aspirin. She is complaining of diarrhea with cilostazol. I advised her to lower dose to 50 MG twice daily. Counseled about quitting smoking. Systolic blood pressure is borderline high. Counseled about low salt diet. Advised weight loss and regular exercise. She is on moderate intensity statin. ? The chest pain is atypical. Symptoms are infrequent. Stress test done in 2015 showed normal myocardial perfusion. We will continue with risk factor modification. ??Ms. Zaidi had left carotid endarterectomy in 2014. Follow-up duplex scan shows no significant stenosis in either carotid artery. We will continue with close clinical follow-up and repeat Doppler studies periodically. ?? History is suggestive of sleep apnea. She may benefit from an outpatient sleep study. ? It has been my pleasure to participate in Ms. Zaidi's care. Further recommendations will be based on the findings of vascular angiogram. Thank you for the consultation. ??History of Present Illness: Ms. Zaidi is a pleasant 56-year-old female with type 2 diabetes mellitus, hypertension and dyslipidemia. She underwent bilateral iliac stents in 06/2016. Her symptoms initially got better. However she has been complaining of recurrent pain mostly in the right leg over the last few months. No history of rest pain. She complains of discomfort in her right thigh after walking 100-200 feet. The left leg does not hurt as much. Functional capacity is limited. She gets out of breath with mild activity. No significant chest pain. She continues to smoke, she is now down to half a pack of cigarettes a day. She denies orthopnea, paroxysmal nocturnal dyspnea, lower extremity swelling. ? DATA REVIEWED: Arterial Doppler done 03/11/2017. KENZIE 1.19 in [...] No evidence of ulceration. Vascular angiogram done 06/05/16 shows 70% ostial [...] 69%. ? Medications: Current Outpatient Prescriptions: ??? ALPRAZolam (XANAX) 1 MG tablet, Take 1 tablet (1 mg total) by mouth 2 (two) times daily as needed for Sleep., Disp: , Rfl: ??? cilostazol 50 MG tablet, Take 1 tablet (50 mg total) by mouth 2 (two) times daily. Dose decreased 03-22-17, please replace previous script, Disp: 180 tablet, Rfl: 1 ??? cyclobenzaprine 10 MG tablet, Take 1 tablet three times a day, as needed, Disp: , Rfl: 0 ??? albuterol sulfate HFA (VENTOLIN HFA) 108 (90 BASE) MCG/ACT inhaler, Take 1 tablet by mouth daily., Disp: , Rfl: ??? amlodipine 5 MG tablet, Take 1 tablet by mouth daily., Disp: , Rfl: ??? aspirin 81 MG tablet, Take 1 tablet (81 mg total) by mouth daily., Disp: , Rfl: ??? fexofenadine (SAMANTHA ALLERGY) 180 MG tablet, as directed, Disp: , Rfl: ??? fluoxetine (PROZAC) 20 MG capsule, Take 1 capsule by mouth daily., Disp: , Rfl: ??? ibuprofen 600 MG tablet, take 1 tablet by mouth 2-3 times a day, Disp: , Rfl: ??? ISOSORBIDE MONONITRATE ER 30 MG 24 hr tablet, TAKE ONE TABLET BY MOUTH ONCE DAILY, Disp: 30 tablet, Rfl: 6 ??? losartan 100 MG tablet, Take 1 tablet by mouth daily., Disp: , Rfl: ??? metFORMIN 500 MG tablet, Take 1 tablet by mouth 2 (two) times daily., Disp: , Rfl: ??? METOPROLOL SUCCINATE 25 MG 24 hr tablet, TAKE ONE TABLET BY MOUTH ONCE DAILY, Disp: 30 tablet, Rfl: 6 ??? Multiple Vitamins-Minerals (PRESERVISION AREDS) capsule, Take 1 capsule by mouth 2 (two) times daily., Disp: , Rfl: ??? nitroGLYCERIN 0.4 MG SL tablet, place 1 tablet under tongue, for chest pain as needed up to 3 doses 5 mins apart. If taking 3rd dose, call 911., Disp: 25 tablet, Rfl: 2 ??? omeprazole (PRILOSEC) 20 MG capsule, Take 1 tablet by mouth 2 (two) times daily., Disp: , Rfl: ??? pravastatin 40 MG tablet, Take 1 tablet by mouth daily., Disp: , Rfl: Allergies Allergen Reactions ??? Haloperidol Seizure ??? Penicillins Redness ??? Resperal-Dm [Ivw-Xl-Hkb-Propyl Xkujgh-Vma-Syelbqwug] Seizure ??? Triazolam Seizure Past Medical History: [...] polydipsia. Does not bruise/bleed easily. Filed Vitals: 03/22/17 1124 03/22/17 1209 BP: 122/82 142/88 Pulse: 85 SpO2: 98% Weight: 106.1 kg (234 lb) Height: 5' 3 (1.6 m) Physical [...] vascular disease) with claudication BASIC METABOLIC PANEL CBC, AUTO, NO DIFF PROTHROMBIN TIME, VENOUS ELECTROCARDIOGRAM (NON MIDMARK ACQUIRED) IR ABD WITH RUNOFF 2. Essential (primary) hypertension 3. Hyperlipidemia, mixed documented in this encounter Plan of Treatment Scheduled Orders Name Type Priority Associated Diagnoses Orde r Schedule IR ABD WITH RUNOFF Interventional Radiology Routine PVD (peripheral vascular disease) with claudication Expected: 04/22/2017, Expires: 03/22/2018 documented as of this encounter Procedures Procedure Name Priority Date/Time Associated Diagnosis Comments PROTHROMBIN TIME, VENOUS Routine 04/14/2017 PVD (peripheral vascular disease) with claudication BASIC METABOLIC PANEL Routine 04/14/2017 PVD (peripheral vascular disease) with claudication CBC, AUTO, NO DIFF Routine 04/14/2017 PVD (peripheral vascular disease) with claudication documented in this encounter Results * PROTHROMBIN TIME, VENOUS (04/14/2017) PROTIME WHOLE BLOOD 10.0 INR WHOLE BLOOD 1.00 04/14/2017 us Asa Mcnamara MD LABORATORY Final Result * CBC, AUTO, NO DIFF (04/14/2017) WBC 9.6 HGB 13.4 HCT 39.6 PLT 210 04/14/2017 us Asa Mcnamara MD LABORATORY Final Result * (ABNORMAL) BASIC METABOLIC PANEL (04/14/2017) SODIUM S/P/B 140 POTASSIUM S/P/B 4.2 CO2 22 CHLORIDE S/P/B 105 GLUCOSE 188 CALCIUM S/P/B 9.6 BUN 16 CREATININE S/P/B 0.7 0.5 - 1.0 EGFR AFR. AMER. 113(A) <=90 EGFR NON-AFR. AMER. 98(A) <=90 04/14/2017 us Asa Mcnamara MD LABORATORY Edited Resul t - Final documented in this encounter Visit Diagnoses Diagnosis PVD (peripheral vascular disease) with claudication (CMS/HCC)- Primary Peripheral vascular disease, unspecified Essential (primary) hypertension Unspecified essential hypertension Hyperlipidemia, mixed Mixed hyperlipidemia documented in this encounter Care Teams Web Ui Developer Relationship Specialty Start Date End Date , Heber Trinidad, PCP - General 03/11/17 06/14/17 Asa Mcnamara MD [facility]. [facility] [address] [place] [address] [employer] Advisor CARDIOVASCULAR DISEASE 05/15/16 documented as of this encounter
--- OUTSIDE RECORDS SUMMARY | 2024-11-12 04:48 | XMS_ITS | Encounter Summary ---
Author Organization [facility] Address [facility] [facility]. [place], [place] [address] [place] [address] Care Team Providers Care Foreign Food Specialty Cook Name Role Phone Asa Mcnamara MD Unavailable [phone] Heber Adorno MD Primary Care Provider Unavailable Deisi Andrews MD Primary Care Provider [phone] Encounter Details Date Type Department Care Team (Latest Contact Info) Description 04/01/2017 Abstract [facility] Social History Tobacco Use Types Packs/Day Years Used Date Smoking Tobacco: Every Day Cigarettes Smokeless Tobacco: Never Alcohol Use Standard Drinks/Week Comments No 0 (1 standard drink = 0.6 oz pur e alcohol) Comments Unknown Sex and Gender Information Value Date Recorded Sex Assigned at Female 12/06/2019 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 Legal Sex Female 5:20 PM CDT Gender Identity Female 12/06/2019 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 Sexual Orientation Straight 12/06/2019 3: 36 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 Occupation Industry Job Start Date Job End Date Not on file Not on file Not on file Not on file documented as of this encounter Plan of Treatment Not on file documented as of this encounter Visit Diagnoses Not on filedocumented in this encounter Care Teams Foreign Food Specialty Cook Relationship Specialty Start Date End Date Heber Adorno MD PCP - General 03/11/17 06/14/17 Deisi Andrews MD [address] [place] [address] [place] [address] PCP - General FAMILY PRACTICE 06/15/17 10/14/19 Asa Mcnamara MD [id number] [place] [address] [place] Unpaid Intern CARDIOVASCULAR DISEASE 05/15/16 documented as of this encounter
--- OUTSIDE RECORDS SUMMARY | 2024-11-12 04:48 | XMS_ITS | Encounter Summary ---
Author Organization [facility] Address [address] [facility] [place] [address] [place] [address] Care Team Providers Care Manager Corporate Strategy Name Role Phone Dane Sullivan Primary Care Provider [phone] Asa Mcnamara MD Unavailable [phone] Encounter Details Date Type Department Care Team (Late st Contact Info) Description 08/25/2016 Orders Only [facility] [address] [place] [address] Asa Mcnamara MD [address] [address] Social History Tobacco Use Types Packs/Day Years Used Date Smoking Tobacco: Every Day Cigarettes Smokeless Tobacco: Never Comments:3 cig a day Alcohol Use Standard Drinks/Week Comments No 0 (1 standard drink = 0.6 oz pur e alcohol) Comments Unknown Sex and Gender Information Value Date Recorded Sex Assigned at Female 12/06/2019 3:36 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 Legal Sex Female 5:20 PM CDT Gender Identity Female 12/06/2019 3:36 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 CLERK Sexual Orientation Straight 12/06/2019 3: 36 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 CLERK Occupation Industry Job Start Date Job End Date Not on file Not on file Not on file Not on file documented as of this encounter Plan of Treatment Not on file documented as of this encounter Procedures Procedure Name Priority Date/Time Associated Diagnosis Comments ULTRASOUND GENERIC 08/25/2016 10 :06 AM CDT documented in this encounter Results * ULTRASOUND GENERIC (08/25/2016 10:06 AM CDT) 08/25/2016 10:0 6 AM CDT Narrative [facility] - 08/25/2016 12:00 AM CDT ?CAROTID DUPLEX IMAGING ? VASCULAR LAB Pat.Name: ??RODY CRUZ ? Pat.ID: ?[id number] ? St.Date: ?? 08/25/2016 ?Exam Time: 10:06:00 AM ? Study Type:SCOTTIE VS Duplex Carotid BIDOB ??Age: ??1960,55Y ? Sex: ? FEMALE ?Sonogrphr: Roxie Caba RVT ? Pat. Stat.:Outpatient ? History / Clinical:f/u ??carotid disease; HTN, HLD, DM, TOB, MO, CVA, CEA, PAD; ASA, Plavix, Eliquis Procedures:Qureshi scale, Color Doppler imaging, Doppler Spectral Analysis Race: ?C ? ++++++++++++++++++++++++++++++++++++ SUMMARY: ++++++++++++++++++++++++++++++++++++ Gail ICA Stenosis Criteria: ?>50% = PSV >160 and/or Ratio 2.0-4.0; ? >70% = PSV >325 and/or Ratio >4.0; ? >80% = PSV >325 with EDV >140 ?(for CCA, ECA, Subc: ?? >50% = PSV >200, Ratio >2.0; ?? for Vert: ??>50% = PSV >150, Ratio >2.2) Brachial waveforms are symmetrical bilaterally, with triphasic flow. The right subclavian artery is not assessed. ??The left subclavian artery is not assessed. Right side: ??The right bifurcation-internal carotid artery has mild, homogeneous plaque. ??Internal carotid maximum velocity is 93 cm/s , with a ratio of ??.91. ??The common carotid artery has no plaque present. ??The external carotid artery has minor plaque proximally. Vertebral artery flow is antegrade. ??No defined ulceration noted. Left side: ??The left bifurcation-internal carotid artery has no plaque. ??Internal carotid maximum velocity is ??85 cm/s, with a ratio of 1.17 . ??The common carotid artery has no plaque present. ??The external carotid artery has severe plaque proximally. ??Vertebral artery flow is antegrade. ??No defined ulceration noted. CONCLUSION: ? The right internal carotid shows 1-49% stenosis. ??Right vertebral artery is antegrade. ?? No evidence of ulceration. The left internal carotid shows no evident stenosis. ??Left vertebral artery is antegrade. ?? No evidence of ulceration. Recommend follow up in 1 year. ++++++++++++++++++++++++++++++++++++ MEASUREMENTS: ++++++++++++++++++++++++++++++++++++ ?DOPPLER Right CCA Prox ?? Prox CCA PSV ? 118 cm/s ? Right Dist CCA ?? Dist CCA PSV ?97 cm/s ? Right Prox ICA ?? Prox ICA PSV ?93 cm/s ? Right Mid ICA ?? Mid ICA PSV ? 49 cm/s ? Right Dist ICA ?? Dist ICA PSV ?60 cm/s ? Right Prox ECA ?? Prox ECA PSV ? 107 cm/s ? Right Bifurcation ?? Bifurcation PSV ?69 cm/s ? Right Vertebral ?? Vertebral PSV ? 42 cm/s ? Right Prox SCA ?? Prox SCA PSV ? 185 cm/s ? Right ICA/CCA RATIO ?? ICA/CCA RATIO P 0.959 ? Left CCA Prox ?? Prox CCA PSV ? 102 cm/s ? Left Dist CCA ?? Dist CCA PSV ?66 cm/s ? Left Prox ICA ?? Prox ICA PSV ?74 cm/s ? Left Mid ICA ?? Mid ICA PSV ? 85 cm/s ? Left Dist ICA ?? Dist ICA PSV ?77 cm/s ? Prox ECA ?? Prox ECA PSV ? 458 cm/s ?Prox ECA EDV ?84 cm/s Left Bifurcation ?? Bifurcation PSV ?87 cm/s ? Left Vertebral ?? Vertebral PSV ? 42 cm/s ? Left Prox SCA ?? Prox SCA PSV ? 169 cm/s ? Left ICA/CCA RATIO ?? ICA/CCA RATIO P ??1.17 ? Signed 08/25/2016 06:27 PM Caesar Aguayo M.D. Procedure Note Caesar Aguayo MD - 08/25/2016 CAROTID DUPLEX IMAGING VASCULAR LAB Pat.Name: RODY CRUZ Pat.ID: [id number] .Date: 08/25/2016 Exam Time: 10:06:00 AM Study [...] Signed 08/25/2016 06:27 PM Caesar Aguayo M.D. Asa Mcnamara MD [facility] Final Resu lt [facility] documented in this encounter Visit Diagnoses Not on filedocumented in this encounter Care Teams Manager Corporate Strategy Relationship Specialty Start Date End Date Dane Sullivan DO PCP - General FAMILY PRACTICE 05/15/16 02/11/17 Asa Mcnamara MD [facility] [address] [place] [address] [place] [facility] Worker CARDIOVASCULAR DISEASE 05/15/16 documented as of this encounter
--- OUTSIDE RECORDS SUMMARY | 2024-11-12 04:48 | XMS_ITS | Encounter Summary ---
Author Organization [facility] Address [facility]6 [facility] [place] [address] [place] [address] Care Team Providers Care Factory Helper Name Role Phone Dane Sullivan Primary Care Provider [phone] Asa Mcnamara MD Unavailable [phone] Reason for Visit * Reason Onset Date Comments Medication 12/31/2016 Cilostazol and P lavix Encounter Details Date Type Department Care Team (Late st Contact Info) Description 12/31/2016 Telephone [employer] [facility] [address] [address] Asa Mcnamara MD [address] [address] Medication (Cilostazol and Plavix) Social History Tobacco Use Types Packs/Day Years Used Date Smoking Tobacco: Every Day Cigarettes Smokeless Tobacco: Never Comments:3 cig a day Alcohol Use Standard Drinks/Week Comments No 0 (1 standard drink = 0.6 oz pur e alcohol) Comments Unknown Sex and Gender Information Value Date Recorded Sex Assigned at Female 12/06/2019 3:36 PM BACKUP ENGINEER Legal Sex Female 5:20 PM CDT Gender Identity Female 12/06/2019 3:36 PM BACKUP ENGINEER Sexual Orientation Straight 12/06/2019 3: 36 PM BACKUP ENGINEER Occupation Industry Job Start Date Job End Date Not on file Not on file Not on file Not on file documented as of this encounter Progress Notes * Lm Buck, JOSE - 12/31/2016 2:05 PM CST Done, patient contacted, pharmacy contacted and med list updated. UP ENGINEER * Hari Rehman RN - 12/31/2016 1:52 PM CST According to Dr. Mcnamara's note from 08/12/17, she can stop the Plavix now since it has been more than 3 months since vascular intervention. She is to continue Cilostazol. Thank you. UP ENGINEER * JOSE Estrada - 12/31/2016 1:45 PM CST Ann Rody is calling wanting to know if she is supposed to continue taking both the Plavix and Cilostazol. Please adviseLm UP ENGINEER documented in this encounter Plan of Treatment Not on file documented as of this encounter Visit Diagnoses Not on filedocumented in this encounter Care Teams Factory Helper Relationship Specialty Start Date End Date Dane Sullivan DO PCP - General FAMILY PRACTICE 05/15/16 02/11/17 Asa Mcnamara MD [facility] [address] [place] [address] [place] Spud Driller CARDIOVASCULAR DISEASE 05/15/16 documented as of this encounter
--- OUTSIDE RECORDS SUMMARY | 2024-11-12 04:48 | XMS_ITS | Encounter Summary ---
Author Organization [facility] Address [facility]6 [facility] [place] [address] [place] [address] Care Team Providers Care Rivet Heater Gas Name Role Phone Asa Mcnamara MD Unavailable [phone] Deisi Andrews MD Primary Care Provider [phone] Reason for Visit * Reason Onset Date Comments Testing 02/17/2017 Encounter Details Date Type Department Care Team (Late st Contact Info) Description 02/17/2017 Telephone [facility] AT [address] [address] Asa Mcnamara MD [address] [address] Testing Social History Tobacco Use Types Packs/Day Years Used Date Smoking Tobacco: Every Day Cigarettes Smokeless Tobacco: Never Comments:3 cig a day Alcohol Use Standard Drinks/Week Comments No 0 (1 standard drink = 0.6 oz pur e alcohol) Comments Unknown Sex and Gender Information Value Date Recorded Sex Assigned at Female 12/06/2019 3:36 PM ER TECH Legal Sex Female 5:20 PM CDT Gender Identity Female 12/06/2019 3:36 PM ER TECH Sexual Orientation Straight 12/06/2019 3: 36 PM ER TECH Occupation Industry Job Start Date Job End Date Not on file Not on file Not on file Not on file documented as of this encounter Progress Notes * Porsha Davdi - 02/17/2017 10:04 AM CDT Patient called requesting to cancel and reschedule her Aortoiliac Duplex and KENZIE's with Exercise again. States she still has a cough and doesn't feel like she can do the test. Requested that she call us back when she feels like she is well enough to do the test so we can reschedule test prior to her 03/22/17 follow-up visit with Dr. Mcnamara. documented in this encounter Plan of Treatment Not on file documented as of this encounter Visit Diagnoses Not on filedocumented in this encounter Care Teams Rivet Heater Gas Relationship Specialty Start Date End Date Deisi Andrews MD [address] [place] [address] [place] [address] PCP - General FAMILY PRACTICE 02/13/17 03/10/17 Asa Mcnamara MD [facility] [address] [place] [address] [place] Application Technician CARDIOVASCULAR DISEASE 05/15/16 documented as of this encounter
--- OUTSIDE RECORDS SUMMARY | 2024-11-12 04:48 | XMS_ITS | Encounter Summary ---
Author Organization [facility] Address [facility]6 [facility] [place], [place] [address] [place] [address] Care Team Providers Care Head Tennis Professional Name Role Phone Dane Sullivan Primary Care Provider + [phone] Asa Mcnamara MD Unavailable [phone] Deisi Anderws MD Primary Care Provider [phone] Heber Adorno MD Primary Care Provider Unavailable Deisi Andrews MD Primary Care Provider [phone] Encounter Details Date Type Department Care Team (Late st Contact Info) Description 08/05/2016 Abstract [facility] [address] [place], [place] [id number] Asa Mcnamara MD Three [facility]. 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 Not on file Not on file documented as of this encounter Plan of Treatment Not on file documented as of this encounter Visit Diagnoses Diagnosis Peripheral vascular disease (CMS/HCC) Peripheral vascular disease, unspecified documented in this encounter Care Teams Head Tennis Professional Relationship Specialty Start Date End Date Dane Sullivan DO PCP - General FAMILY PRACTICE 05/15/16 02/11/17 Deisi Andrews MD [address] [place] [address] PCP - General FAMILY PRACTICE 02/13/17 03/10/17 Heber Adorno MD PCP - General 03/11/17 06/14/17 Deisi Andrews MD [address] [place] [address] PCP - General FAMILY PRACTICE 06/15/17 10/14/19 Asa Mcnamara MD [facility]. [facility] [address] [place] [address] Stephen Protector Plate Attacher CARDIOVASCULAR DISEASE 05/15/16 documented as of this encounter
--- OUTSIDE RECORDS SUMMARY | 2024-11-12 04:49 | XMS_ITS | Encounter Summary ---
Author Organization [facility] Address [address] [facility]. [place], [place] [address] [place] [address] Care Team Providers Care Mail Service Coordinator Name Role Phone Dane Sullivan DO Primary Care Provider + [phone] Asa Mcnamara MD Unavailable [phone] Deisi Andrews MD Primary Care Provider [phone] Heber Adorno MD Primary Care Provider Unavailable Dane Sullivan DO Primary Care Provider + [phone] Dane Sullivan DO Primary Care Provider + [phone] Dane Sullivan DO Primary Care Provider + [phone] Deisi Andrews MD Primary Care Provider [phone] Encounter Details Date Type Department Care Team (Latest Contact Info) Description 03/30/2016 Abstract [facility] Social History Tobacco Use Types Packs/Day Years Used Date Smoking Tobacco: Never Assessed Comments Unknown Sex and Gender Information Value Date Recorded Sex Assigned at Female 12/06/2019 3:36 PM NEWS VIDEOGRAPHER Legal Sex Female 5:20 PM CDT Gender Identity Female 12/06/2019 3:36 PM NEWS VIDEOGRAPHER Sexual Orientation Straight 12/06/2019 3: 36 PM NEWS VIDEOGRAPHER documented as of this encounter Plan of Treatment Not on file documented as of this encounter Visit Diagnoses Not on filedocumented in this encounter Care Teams Mail Service Coordinator Relationship Specialty Start Date End Date Dane Sullivan DO PCP - General FAMILY PRACTICE 05/15/16 02/11/17 Deisi Andrews MD [address] [place] [address] PCP - General FAMILY PRACTICE 02/13/17 03/10/17 Heber Adorno MD PCP - General 03/11/17 06/14/17 Dane Sullivan DO PCP - General 05/04/16 05/14/16 Dane Sullivan DO PCP - General 04/17/16 05/03/16 Dane Sullivan DO PCP - General 03/26/16 04/16/16 Deisi Andrews MD [address] [place] [address] PCP - General FAMILY PRACTICE 06/15/17 10/14/19 Asa Mcnamara MD [facility]. [address] [address] [place] [address] [place] Trade Show Coordinator CARDIOVASCULAR DISEASE 05/15/16 documented as of this encounter
--- OUTSIDE RECORDS SUMMARY | 2024-11-12 04:49 | XMS_ITS | Encounter Summary ---
Author Organization [facility] Address [address] [facility]. [place], [place] [address] [place] [address] Care Team Providers Care Telesales Representative Name Role Phone Tere Monae DO Primary Care Provider + [phone] Asa Mcnamara MD Unavailable [phone] Deisi Andrews MD Primary Care Provider [phone] Heber Adorno MD Primary Care Provider Unavailable Tere Monae DO Primary Care Provider + [phone] Tere Monae DO Primary Care Provider + [phone] Deisi Andrews MD Primary Care Provider [phone] Encounter Details Date Type Department Care Team (Latest Contact Info) Description 04/22/2016 Abstract [facility] Heber Adorno MD Social History Tobacco Use Types Packs/Day Years Used Date Smoking Tobacco: Never Assessed Comments Unknown Sex and Gender Information Value Date Recorded Sex Assigned at Female 12/06/2019 3:36 PM MANAGER STRATEGIC Legal Sex Female 5:20 PM CDT Gender Identity Female 12/06/2019 3:36 PM MANAGER STRATEGIC Sexual Orientation Straight 12/06/2019 3: 36 PM MANAGER STRATEGIC documented as of this encounter Progress Notes * Tere Monae DO - 04/22/2016 9:15 AM CDT [place] [address] Patient: ARNOLD CRUZ [facility] Rec#: [id number] Birthdate: 1960 Admit/Svce Date: 04/17/2016 Disch Date: Attending Md: ASA MCNAMARA MD CHART DOCUMENT ARTERIAL DUPLEX IMAGING BILATERAL LOWER EXTREMITY VASCULAR LAB Pat.Name: ARNOLD CRUZ Pat.ID: [id number] .Date: 04/17/2016 Refer.MD: TERE MONAE MD Exam Time: 2:25:00 PM Study Type:SCOTTIE VS Arterial Duplex Legs DILEEP Height: 62in Age: 2 1960,55Y Sex: FEMALE Sonogrphr: Roxie Caba RVT Reason for Study:Limb pain History / Clinical:OP Race: C Risk Factors:Hypertension, Hyperlipidemia, Diabetes, COPD, Asthma, Back/spine disorder, CVA , Smoker present, Obesity, BMI Clinical Symptoms:BLE pain rt > lt; right in pain constantly, left off/on; both worse when walking; no pulse at right ankle per pt per doctor; burning sensation right groin Medications:ASA SUMMARY: Gail Stenosis Criteria: 50-75% = Ratio 2.0-4.0 and/or PSV 200-300; 75-99% = Ratio >4.0 and/or PSV >300 Right leg: Common femoral no evident narrowing, biphasic with normal velocity; Profunda femoral is patent proximally; Femoral no evident narrowing, biphasic with normal velocity; Popliteal no evident narrowing, mono-biphasic with normal velocity; Posterior tibial monophasic; Anterior tibial no evident narrowing, monophasic; Peroneal no evident narrowing, monophasic. Left leg: Common femoral no evident narrowing, biphasic with normal velocity; Profunda femoral is patent proximally; Femoral is not assessed, bi-triphasic with normal velocity; Popliteal no evident narrowing, triphasic with normal velocity; Posterior tibial no evident narrowing, triphasic; Anterior tibial no evident narrowing, bi-triphasic; Peroneal no evident narrowing, triphasic. Doppler-KENZIE evaluation done today is .77 on the right, .95 on the left. CONCLUSION: Right: Mild, <50% stenosis at the common femoral. No significant flow limiting lesions Left: No significant flow limiting lesions. MEASUREMENTS: DOPPLER Left TOXICOLOGY TEACHER TOXICOLOGY TEACHER PSV 127 cm/s Left Prox Profunda Prox Profunda P 88 cm/s Left Prox SFA Prox SFA PSV 140 cm/s Left Mid SFA Mid SFA PSV 115 cm/s Left Dist SFA Dist SFA PSV 109 cm/s Left Prox Pop A Prox Pop A PSV 106 cm/s Left Dist Pop A Dist Pop A PSV 92 cm/s Left Tib Fili Trunk Tib Fili Trunk 101 cm/s Left Prox TECHNOLOGY INSTRUCTOR Prox TECHNOLOGY INSTRUCTOR PSV 74 cm/s Left Dist TECHNOLOGY INSTRUCTOR Dist TECHNOLOGY INSTRUCTOR PSV 108 cm/s Left Prox Fili A Prox Fili A PSV 46 cm/s Left Prox BHUMI Prox BHUMI PSV 56 cm/s Left Dist BHUMI Dist BHUMI PSV 105 cm/s Right TOXICOLOGY TEACHER TOXICOLOGY TEACHER PSV 96 cm/s Right Prox Profunda Prox Profunda P 63 cm/s Right Prox SFA Prox SFA PSV 105 cm/s Right Mid SFA Mid SFA PSV 97 cm/s Right Dist SFA Dist SFA PSV 102 cm/s Right Prox Pop A Prox Pop A PSV 79 cm/s Right Dist Pop A Dist Pop A PSV 67 cm/s Right Tib Fili Trunk Tib Fili Trunk 76 cm/s Right Prox TECHNOLOGY INSTRUCTOR Prox TECHNOLOGY INSTRUCTOR PSV 74 cm/s Right Dist TECHNOLOGY INSTRUCTOR Dist TECHNOLOGY INSTRUCTOR PSV 74 cm/s Right Prox Fili A Prox Fili A PSV 69 cm/s Right Prox BHUMI Prox BHUMI PSV 69 cm/s Right Dist BHUMI Dist BHUMI PSV 79 cm/s Signed 04/22/2016 08:54 AM Caesar Aguayo M.D. cc: Michelle ISLAS D.O. documented in this encounter Plan of Treatment Not on file documented as of this encounter Visit Diagnoses Not on filedocumented in this encounter Care Teams Telesales Representative Relationship Specialty Start Date End Date Tere Monae DO PCP - General FAMILY PRACTICE 05/15/16 02/11/17 Deisi Andrews MD [address] [place] [address] [place] [address] PCP - General FAMILY PRACTICE 02/13/17 03/10/17 Heber Adorno MD PCP - General 03/11/17 06/14/17 Tere Monae DO PCP - General 05/04/16 05/14/16 Tere Monae DO PCP - General 04/17/16 05/03/16 Deisi Andrews MD [address] [place] [address] [place] [address] PCP - General FAMILY PRACTICE 06/15/17 10/14/19 Asa Mcnamara MD [facility]. [facility] [address] [place] [address] [place] Maternity Nurse CARDIOVASCULAR DISEASE 05/15/16 documented as of this encounter
--- OUTSIDE RECORDS SUMMARY | 2024-11-12 04:49 | XMS_ITS | Encounter Summary ---
Author Organization [facility] Address [address] [facility]. [place], [place] [address] [place] [address] Care Team Providers Care Construction Equipment Overhauler Name Role Phone Dane Sullivan Primary Care Provider + [phone] Asa Mcnamara MD Unavailable [phone] Deisi Andrews MD Primary Care Provider [phone] Heber Adorno MD Primary Care Provider Unavailable Deisi Andrews MD Primary Care Provider [phone] Neva Holden MD Primary Care Provider [phone] Deisi Andrews MD Primary Care Provider [phone] Neva Holden MD Primary Care Provider [phone] Encounter Details Date Type Department Care Team (Late st Contact Info) Description 05/21/2016 Abstract [facility] AT [address] [address] Rafael Thakur MA Social History Tobacco Use Types Packs/Day Years Used Date Smoking Tobacco: Every Day Cigarettes Smokeless Tobacco: Never Alcohol Use Standard Drinks/Week Comments No 0 (1 standard drink = 0.6 oz pur e alcohol) Comments Unknown Sex and Gender Information Value Date Recorded Sex Assigned at Female 12/06/2019 3:36 PM BONDERIZER Legal Sex Female 5:20 PM CDT Gender Identity Female 12/06/2019 3:36 PM BONDERIZER Sexual Orientation Straight 12/06/2019 3: 36 PM BONDERIZER 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 Not on file Not on file documented as of this encounter Plan of Treatment Not on file documented as of this encounter Procedures Procedure Name Priority Date/Time Associated Diagnosis Comments BUN (OUTSIDE LAB) Routine 07/06/2016 HEMATOCRIT Routine 07/06/2016 CREATININE Routine 07/06/2016 CBC (OUTSIDE LAB) Routine 05/09/2016 BASIC METABOLIC PANEL Routine 05/09/2016 HEPATIC FUNCTION PANEL Routine 05/07/2016 documented in this encounter Results * HEMATOCRIT (07/06/2016) HCT 37.9 07/06/2016 us Doc [facility] LABORATORY Final Result * CREATININE (07/06/2016) CREATININE S/P/B 0.67 EGFR NON-AFR. AMER. 100 EGFR AFR. AMER. 115 07/06/2016 us Doc [facility] Abstract LABORATORY Final Result * BUN (OUTSIDE LAB) (07/06/2016) BUN 24 07/06/2016 us Doc [facility] Abstract LAB-OUTSIDE/ABSTRACTED Final Result * BASIC METABOLIC PANEL (05/09/2016) SODIUM S/P/B 141 POTASSIUM S/P/B 4.1 CO2 27 CHLORIDE S/P/B 108 GLUCOSE 114 CALCIUM S/P/B 8.4 BUN 13 CREATININE S/P/B 0.7 EGFR NON-AFR. AMER. >60 05/09/2016 us Doc [facility] LABORATORY Final Result * CBC (OUTSIDE LAB) (05/09/2016) WBC 6.0 HGB 12.7 HCT 39.3 PLT 197 05/09/2016 us Doc [facility] Abstract LAB-OUTSIDE/ABSTRACTED Final Result * HEPATIC FUNCTION PANEL (05/07/2016) ALBUMIN S/P/B 4.6 3.5 - 5.0 ALKALINE PHOSPHATASE S/P/B 117 ALT 18 AST 32 BILIRUBIN TOTAL S/P/B 0.9 TOTAL PROTEIN S/P/B 8.1 05/07/2016 us Doc [facility]ORAT[facility] Final Result documented in this encounter Visit Diagnoses Not on filedocumented in this encounter Care Teams Construction Equipment Overhauler Relationship Specialty Start Date End Date Dane Sullivan DO PCP - General FAMILY PRACTICE 05/15/16 02/11/17 Deisi Andrews MD [address] [place] [address] PCP - General FAMILY PRACTICE 02/13/17 03/10/17 Heber Adorno MD PCP - General 03/11/17 06/14/17 Deisi Andrews MD [address] [place] [address] PCP - General FAMILY PRACTICE 06/15/17 10/14/19 Neva Holden MD [facility] [address] [address] PCP - General FAMILY PRACTICE 10/15/19 12/05/19 Deisi Andrews MD [address] [place] [address] PCP - General FAMILY PRACTICE 12/06/19 02/13/20 Nev[facility] Holden [facility] [address] [place] [address] PCP - General FAMILY PRACTICE 02/14/20 Asa Mcnamara MD [facility]. [facility] [address] [place] [address] [place] Photograph Inspector CARDIOVASCULAR DISEASE 05/15/16 documented as of this encounter
--- OUTSIDE RECORDS SUMMARY | 2024-11-12 04:49 | XMS_ITS | Encounter Summary ---
Author Organization [facility] Address [facility]. [place], [place] [address] [place] [address] Care Team Providers Care Stewarding Supervisor Name Role Phone Dane Sullivan Primary Care Provider + [phone] Asa Mcnamara MD Unavailable [phone] Deisi Andrews MD Primary Care Provider [phone] Heber Huynh MD Primary Care Provider Unavailable Deisi Andrews MD Primary Care Provider [phone] Encounter Details Date Type Department Care Team (Late st Contact Info) Description 07/01/2016 Abstract [facility] Clinic Manager [place], [place] [id number] Asa Mcnamara MD Three [facility]. 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 Not on file Not on file documented as of this encounter Plan of Treatment Not on file documented as of this encounter Procedures Procedure Name Priority Date/Time Associated Diagnosis Comments PROTHROMBIN TIME, VENOUS STAT 07/01/2016 7:06 AM CDT BASIC METABOLIC PANEL STAT 07/01/2016 7:06 AM CDT CHORIONIC GONADOTROPIN HCG QL STAT 07/01/2016 7:06 AM CDT CBC W/DIFF AUTOMATED STAT 07/01/2016 7:06 AM CDT documented in this encounter Results * CHORIONIC GONADOTROPINHCG QL (07/01/2016 7:06 AM CDT) Pathologist [facility] PREG SCREEN-SERUM NEGATIVE 07/01/2016 7:[address] [facility] 07/01/2016 7:06 AM CDT 07/01/2016 7:12 AM CDT us Generic Conversion Md [facility] Final R esult [facility] [address] [place] [address], [place] [phone] * PROTIME/INR, VENOUS (07/01/2016 7:06 AM CDT) Pathologist [facility] PROTIME 11.1 9.6 - 12.2 SEC 07/01/2016 7:[address] [facility] INR 1.00 07/01/2016 7:[address] [facility] Comment: Recommended INR Therapeutic Goals: ??2.0-3.0 Routine Therapy ??2.5-3.5 Mechanical Prosthetic Valves (High Risk) ??3.0-4.0 Acute PA (to prevent Systemic Embolism) The INR is used only for patients on stable oral anticoagulant therapy. It makes no significant contribution to the diagnosis or treatment of patients whose Protime is prolonged for other reasons. 07/01/2016 7:06 AM CDT 07/01/2016 7:12 AM CDT us Generic Conversion Md [facility] Final R esult [facility] [address] [place] [address], * (ABNORMAL) CBC W/DIFF AUTOMATED (07/01/2016 7:06 AM CDT) WBC 17.0(H) 4.8 - 10.8 X10'3/uL 07/01/2016 7:[address] [facility] RBC 4.86 4.20 - 5.40 X10'6/uL 07/01/2016 7:[address] [facility] HGB 13.6 12.0 - 16.0 g/dL 07/01/2016 7:[address] [facility] HCT 40.4 38.0 - 48.0 % 07/01/2016 7:[address] [facility] MCV 83.1 81.0 - 99.0 fL 07/01/2016 7:[address] [facility] MCH 28.0 27.0 - 31.0 pg 07/01/2016 7:[address] [facility] MCHC 33.7 32.0 - 36.0 g/dL 07/01/2016 7:[address] [facility] RDW 13.3 11.5 - 14.5 % 07/01/2016 7:[address] [facility] PLT 275 130 - 400 X10'3/uL 07/01/2016 7:[address] [facility] MPV 10.0 9.3 - 12.2 fL 07/01/2016 7:[address] [facility] DIFFERENTIAL TYPE AUTOMATED 07/01/2016 7:[address] [facility] NEUTROPHILS % 77.8(H) 43.0 - 65.0 % 07/01/2016 7:[address] [facility] LYMPHOCYTES % 13.9(L) 20.0 - 46.0 % 07/01/2016 7:[address] [facility] MONOCYTES % 6.3 5.0 - 12.0 % 07/01/2016 7:[address] [facility] EOSINOPHILS 0.9(L) 1.0 - 3.0 % 07/01/2016 7:[address] [facility] BASOPHILS 0.4 0.0 - 1.0 % 07/01/2016 7:[address] [facility] IMMATURE GRANS % 0.7 0.0 - 1.0 % 07/01/2016 7:[address] [facility] 07/01/2016 7:06 AM CDT 07/01/2016 7:12 AM CDT us Generic Conversion Md [facility] Final R esult [facility] [address] [place] [address], * (ABNORMAL) BASIC METABOLIC PANEL (07/01/2016 7:06 AM CDT) GLUCOSE 161(H) 70 - 99 mg/dL 07/01/2016 7:[address] [facility] BUN 25(H) 8 - 23 mg/dL 07/01/2016 7:[address] [facility] CREATININE S/P/B 0.74 0.60 - 1.10 mg/dL 07/01/2016 7:[address] [facility] SODIUM S/P/B 135(L) 136 - 145 mmol/L 07/01/2016 7:[address] [facility] POTASSIUM S/P/B 4.4 3.5 - 5.1 mmol/L 07/01/2016 7:[address] [facility] CHLORIDE S/P/B 100 98 - 107 mmol/L 07/01/2016 7:[address] [facility] CO2 22 22 - 29 mmol/L 07/01/2016 7:[address] [facility] CALCIUM S/P/B 9.0 8.6 - 10.2 mg/dL 07/01/2016 7:[address] [facility] ANION GAP 17 8 - 20 07/01/2016 7:[address] [facility] EGFR NON-AFR. AMER. >60 >60 mL/min/1.[address] [facility] 07/01/2016 7:[address] [facility] EGFR AFR. AMER. >60 >60 mL/min/1.7 [facility] 07/01/2016 7:[address] [facility] Comment: NOTE: eGFR is not calculated for patients <18 years of age. This is an estimated GFR (CKD EPI) and should not be used for calculating drug doses. 07/01/2016 7:06 AM CDT 07/01/2016 7:12 AM CDT us Generic Conversion Md [facility] Final R esult [facility] [address] [place] [address], documented in this encounter Visit Diagnoses Diagnosis Atherosclerosis of other arteries documented in this encounter Care Teams Stewarding Supervisor Relationship Specialty Start Date End Date Dane Sullivan DO PCP - General FAMILY PRACTICE 05/15/16 02/11/17 Deisi Andrews MD [address] [place] [address] PCP - General FAMILY PRACTICE 02/13/17 03/10/17 Heber Huynh MD PCP - General 03/11/17 06/14/17 Deisi Andrews MD [address] [place] [address] PCP - General FAMILY PRACTICE 06/15/17 10/14/19 Asa Mcnamara MD [facility] [address] [place] [address] [place] Business Account Executive CARDIOVASCULAR DISEASE 05/15/16 documented as of this encounter
--- OUTSIDE RECORDS SUMMARY | 2024-11-12 04:49 | XMS_ITS | Encounter Summary ---
Author Organization [facility] Address [address] [facility]. [place], [place] [address] [place] [address] Care Team Providers Care End Finder Forming Department Name Role Phone Dane Sullivan DO Primary Care Provider + [phone] Asa Mcnamara MD Unavailable [phone] Deisi Andrews MD Primary Care Provider [phone] Heber Adorno MD Primary Care Provider Unavailable Daen Sullivan DO Primary Care Provider + [phone] Dane Sullivan DO Primary Care Provider + [phone] Deisi Andrews MD Primary Care Provider [phone] Encounter Details Date Type Department Care Team (Latest Contact Info) Description 04/17/2016 Abstract [facility] Medical Group Heber Adorno MD Social History Tobacco Use Types Packs/Day Years Used Date Smoking Tobacco: Never Assessed Comments Unknown Sex and Gender Information Value Date Recorded Sex Assigned at Female 12/06/2019 3:36 PM MOTORCYCLE SERVICE TECHNICIAN Legal Sex Female 5:20 PM CDT Gender Identity Female 12/06/2019 3:36 PM MOTORCYCLE SERVICE TECHNICIAN Sexual Orientation Straight 12/06/2019 3: 36 PM MOTORCYCLE SERVICE TECHNICIAN documented as of this encounter Procedure Notes * Dane Sullivan DO - 04/17/2016 3:15 PM CDT [place] [address] Patient: RODY CRUZ [facility] Rec#: [id number] Birthdate: 1960 Admit/Svce Date: 04/17/2016 Disch Date: Attending Md: ASA MCNAMARA MD CHART DOCUMENT Echocardiography Report Pat.Name: RODY CRUZ Pat.ID: [id number] St.Date: 04/17/2016 Refer.MD: DOV Exam Time: 9:35:00 AM Study Type:ECHO WITH CARDIAC DOPPLER COMP Height: 62in Weight: 221.54lb BSA: 2 m2 Age: 2 1960,55Y Sex: FEMALE BP: 120/70 HR: 98 bpm Sonogrphr: Cristel Lundberg [facility] Pat. Stat.:Outpatient Reason for Study:Shortness of breath Procedures:2D, M-mode, Doppler, Color Flow, Definity was used to enhance endocardial definition., The study quality is technically difficult. Race: C SUMMARY: The left ventricular systolic function is hyperdynamic. Estimated left ventricular ejection fraction is 70-75%. Mild concentric left ventricular hypertrophy. Left ventricular diastolic function is abnormal (grade 1 - impaired relaxation). Trace mitral regurgitation. Mild tricuspid regurgitation. Right ventricular systolic pressure is 35 mmHg. FINDINGS: LV: The left ventricular size is normal. The left ventricular systolic function is hyperdynamic. Estimated left ventricular ejection fraction is 70-75%. Mild concentric left ventricular hypertrophy. The septal E/e' is indeterminate at 8-15. Left ventricular diastolic function is abnormal (grade 1 - impaired relaxation). RV: The right ventricle size is normal. The right ventricular function is normal. IVS: No evidence of ventricular septal defect. LA: The left atrial size is mildly enlarged. RA: Right atrial size is normal. IAS: Atrial septum not well visualized in all views. JACINTO: No evidence of pericardial effusion. AO: Normal aortic root. SVn: Systemic veins not well visualized. Other: Technically difficult exam due to body habitus. AV: No evidence of aortic valve stenosis. No evidence of aortic valve regurgitation. The aortic valve not well visualized. MV: Trace mitral regurgitation. No evidence of mitral stenosis. PV: No evidence of pulmonic valve stenosis. No evidence of pulmonic regurgitation. Pulmonic valve not well visualized. TV: Mild tricuspid regurgitation. Right ventricular systolic pressure is 35 mmHg. No evidence of tricuspid valve stenosis. STRESS: Baseline Vital Signs: Stress Test Results: Contrast: Definity 2 ml Symptoms and Complications: CONTRAST: Pre Contrast BP HR Post Contrast BP HR min Contrast: Definity 2 ml Complications: None Condition: Good Comments: Chart reviewed and patient evaluated, and no contraindications to contrast administration were noted., Risks and benefits were discussed with the patient., Patient authorized the intravenous injection of contrast agent, which was then administered. MEASUREMENTS: DOPPLER LVOT LVOTmnPG 4 mmHg LVOTpkPG 6 mmHg LVOT TVI 23.9 cm LVOT SV 68 ml Index 34 ml/m LVOTpkVel 122 cm/s (70-110) * Right Atrium RA Press 3 mmHg AV Forward Flow AV mnPG 8 mmHg AV pkPG 16 mmHg AV TVI 36.9 cm Area (TVI) 1.84 cm2 (3-5)* Index 0.92 cm /m AV pkVel 198 cm/s (100-170)* Area (Efren) 1.75 cm2 (3-5)* MV Forward Flow MV pkE 103 cm/s (60-130) MV E/A 0.8 MV pkA 122 cm/s MV DeTm 178 msec PV Forward Flow PV AC 79 msec PV pkPG 8 mmHg PV pkVel 140 cm/s (60-90) * TV Regurg Flow TV pkVel 279 cm/s (30-70)* TV pkPG 31 mmHg Right Ventricle RVsys P 34 mmHg TV Forward Flow TV pkE 90.5 cm/s Lat E' Lat e 7.02 cm/s Lat E/E' Lat E/e 14.7 Med E' Med e 9.26 cm/s Med E/E' Med E/e 11.1 PV Antegrade Flow Acceleration Sl 1283 cm/s2 RA VOLUME Atrial Shoemaker 51 mm Atrial Shoemaker 13.4 cm2 Atrial Shoemaker 30.3 ml RV DIM BASAL Distance 36 mm RV DIM LENGTH Distance 79 mm RV DIM MID Distance 35 mm 2D Left Ventricle LngAxd 6.73 cm LVESV BP 30 ml LngAxd 6.73 cm LVIDd 3.69 cm (3.6-5.2) LV EDV 105 ml LVIDs 1.83 cm (2.3-3.9)* LV EDV 101 ml LV EF 71 % LVEDV BP 103 ml LV EF 74 % LngAxs 5.04 cm LV EF BP 71 % LngAxs 4.52 cm LV SV 75 ml LV ESV 30 ml LV SV 75 ml LV ESV 26 ml LV SV BP 73 ml LVPW LVPWd 1.17 cm Ventricular Septum IVSd 1.16 cm Left Atrium LA VOLBP 43 ml Index 21.5 ml/m LVOT LVOT 1.9 cm LVOTArea 2.84 cm2 Ratios IVS LA Biplane LAVol I BP 21.5 ml/m2 MMODE Ratios LA/Ao 1.48 (0.87-1.1)* Aorta Ao Rt 2.5 cm (2-3.7) Left Atrium LAIDs 3.7 cm Signed 04/17/2016 03:10 PM Asa Mcnamara M.D. cc: Michelle ISLAS D.O. documented in this encounter Plan of Treatment Not on file documented as of this encounter Visit Diagnoses Not on filedocumented in this encounter Care Teams End Finder Forming Department Relationship Specialty Start Date End Date Dane Sullivan DO PCP - General FAMILY PRACTICE 05/15/16 02/11/17 Deisi Andrews MD [address] [place] [address] PCP - General FAMILY PRACTICE 02/13/17 03/10/17 Heber Adorno MD PCP - General 03/11/17 06/14/17 Dane Sullivan DO PCP - General 05/04/16 05/14/16 Dane Sullivan DO PCP - General 04/17/16 05/03/16 Deisi Andrews MD [address] [place] [address] PCP - General FAMILY PRACTICE 06/15/17 10/14/19 Asa Mcnamara MD [facility]. [facility] [address] [place] [address] [place] Water Regulator And Valve Repairer CARDIOVASCULAR DISEASE 05/15/16 documented as of this encounter
--- OUTSIDE RECORDS SUMMARY | 2024-11-12 04:49 | XMS_ITS | Encounter Summary ---
Author Organization [facility] Address [facility]6 [facility]. [place], [place] [address] [place] [address] Care Team Providers Care Psych Therapist Name Role Phone Dane Sullivan DO Primary Care Provider + [phone] Dane Sullivan DO Primary Care Provider + [phone] Encounter Details Date Type Department Care Team (Late st Contact Info) Description 04/10/2016 Abstract [facility] [address] [place] [address] , Heber Trinidad MD Social History Tobacco Use Types Packs/Day Years Used Date Smoking Tobacco: Never Assessed Comments Unknown Sex and Gender Information Value Date Recorded Sex Assigned at Female 12/06/2019 3:36 PM PULL SOCKET ASSEMBLER Legal Sex Female 5:20 PM CDT Gender Identity Female 12/06/2019 3:36 PM PULL SOCKET ASSEMBLER Sexual Orientation Straight 12/06/2019 3: 36 PM PULL SOCKET ASSEMBLER documented as of this encounter Last Filed Vital Signs Vital Sign Reading Time Taken Comments Blood Pressure 128/78 04/10/2016 10:00 AM CDT Pulse 97 04/10/2016 10:00 AM CDT Temperature - - Respiratory Rate - - Oxygen Saturation - - Inhaled Oxygen Concentration - - Weight 100.7 kg (222 lb) 04/10/2016 10:00 AM CDT Height 157.5 cm (5' 2 ) 04/10/2016 10:00 AM CDT Body Mass Index 40.6 04/10/2016 10:00 AM CDT documented in this encounter Plan of Treatment Not on file documented as of this encounter Visit Diagnoses Not on filedocumented in this encounter Care Teams Psych Therapist Relationship Specialty Start Date End Date Dane Sullivan DO PCP - General 04/17/16 05/03/16 Dane Sullivan DO PCP - General 03/26/16 04/16/16 documented as of this encounter
--- OUTSIDE RECORDS SUMMARY | 2024-11-12 04:49 | XMS_ITS | Encounter Summary ---
Author Organization [facility] Address [facility] [place] [address] [place] [address] Care Team Providers Care Airconditioning Plant Operator Name Role Phone Dane Sullivan Primary Care Provider [phone] Asa Mcnamara MD Unavailable [phone] Encounter Details Date Type Department Care Team (Late st Contact Info) Description 06/04/2016 Orders Only [facility] AT [address] [address] Asa Mcnamara MD [address] [address] Social History Tobacco Use Types Packs/Day Years Used Date Smoking Tobacco: Every Day Cigarettes Smokeless Tobacco: Never Alcohol Use Standard Drinks/Week Comments No 0 (1 standard drink = 0.6 oz pur e alcohol) Comments Unknown Sex and Gender Information Value Date Recorded Sex Assigned at Female 12/06/2019 3:36 PM SLATE HANDLER Legal Sex Female 5:20 PM CDT Gender Identity Female 12/06/2019 3:36 PM SLATE HANDLER Sexual Orientation Straight 12/06/2019 3: 36 PM SLATE HANDLER 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 Not on file Not on file documented as of this encounter Plan of Treatment Not on file documented as of this encounter Procedures Procedure Name Priority Date/Time Associated Diagnosis Comments PROTHROMBIN TIME, VENOUS STAT 06/04/2016 7:16 AM CDT CHORIONIC GONADOTROPIN HCG QL STAT 06/04/2016 7:16 AM CDT documented in this encounter Results * CHORIONIC GONADOTROPINHCG QL (06/04/2016 7:16 AM CDT) PREG SCREEN-SERUM NEGATIVE [facility] 06/04/2016 7:16 AM CDT 06/04/2016 7:20 AM CDT Asa Mcnamara MD LABORATORY Final Result Performing Organization Address [facility] Co de Phone Number [facility] [address] [place] [address], [place] [phone] * PROTIME/INR, VENOUS (06/04/2016 7:16 AM CDT) PROTIME 11.8 9.6 - 12.2 SEC [facility] INR 1.06 Recommended INR Therapeutic Goals: ??2.0-3.0 Routine Therapy ??2.5-3.5 Mechanical Prosthetic Valves (High Risk) ??3.0-4.0 Acute NC (to prevent Systemic Embolism) The INR is used only for patients on stable oral anticoagulant therapy. It makes no significant contribution to the diagnosis or treatment of patients whose Protime is prolonged for other reasons. [facility] 06/04/2016 7:16 AM CDT 06/04/2016 7:20 AM CDT us Asa Mcnamara MD LABORATORY Final Result Performing Organization Address [facility] Co de Phone Number [facility] [address] [place] [address], [place] [phone] documented in this encounter Visit Diagnoses Not on filedocumented in this encounter Care Teams Airconditioning Plant Operator Relationship Specialty Start Date End Date Dane Sullivan DO PCP - General FAMILY PRACTICE 05/15/16 02/11/17 Asa Mcnamara MD [facility] [address] [place] [address] [place] Scrubbing Machine Operator CARDIOVASCULAR DISEASE 05/15/16 documented as of this encounter
--- OUTSIDE RECORDS SUMMARY | 2024-11-12 04:49 | XMS_ITS | Encounter Summary ---
Author Organization [facility] Address [facility] [place] [address] [place] [address] Care Team Providers Care Ship Yard Electrical Person Name Role Phone Dane Sullivan DO Primary Care Provider [phone] Asa Mcnamara MD Unavailable [phone] Encounter Details Date Type Department Care Team (Late st Contact Info) Description 07/01/2016 Orders Only [facility] AT [address] [id number] Layla Quiles, [facility] Social History Tobacco Use Types Packs/Day Years Used Date Smoking Tobacco: Every Day Cigarettes Smokeless Tobacco: Never Alcohol Use Standard Drinks/Week Comments No 0 (1 standard drink = 0.6 oz pur e alcohol) Comments Unknown Sex and Gender Information Value Date Recorded Sex Assigned at Female 12/06/2019 3:36 PM ADJUNCT COMMUNICATIONS FACULTY MEMBER Legal Sex Female 5:20 PM CDT Gender Identity Female 12/06/2019 3:36 PM ADJUNCT COMMUNICATIONS FACULTY MEMBER Sexual Orientation Straight 12/06/2019 3: 36 PM ADJUNCT COMMUNICATIONS FACULTY MEMBER 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
--- OUTSIDE RECORDS SUMMARY | 2024-11-12 04:49 | XMS_ITS | Encounter Summary ---
Author Organization [facility] Address [address] [facility]. [place], [place] [address] [place] [address] Care Team Providers Care Quality Control Tester Name Role Phone Dane Sullivan DO Primary Care Provider + [phone] Asa Mcnamara MD Unavailable [phone] Deisi Andrews MD Primary Care Provider [phone] , Generic Conversion Primary Care Provider Unavailable Dane Sullivan DO Primary Care Provider + [phone] Dane Sullivan DO Primary Care Provider + [phone] Deisi Andrews MD Primary Care Provider [phone] Encounter Details Date Type Department Care Team (Late st Contact Info) Description 04/17/2016 Abstract [facility] CONVERSION [address] [place], [place] [id number] Asa Mcnamara MD [address] [facility]. [facility] [address] [place], [place] [id number] Social History Tobacco Use Types Packs/Day Years Used Date Smoking Tobacco: Never Assessed Comments Unknown Sex and Gender Information Value Date Recorded Sex Assigned at Female 12/06/2019 3:36 PM CHEMICAL PROJECT ENGINEER Legal Sex Female 5:20 PM CDT Gender Identity Female 12/06/2019 3:36 PM CHEMICAL PROJECT ENGINEER Sexual Orientation Straight 12/06/2019 3: 36 PM CHEMICAL PROJECT ENGINEER documented as of this encounter Plan of Treatment Not on file documented as of this encounter Visit Diagnoses Diagnosis Shortness of breath documented in this encounter Care Teams Quality Control Tester Relationship Specialty Start Date End Date Dane Sullivan DO PCP - General FAMILY PRACTICE 05/15/16 02/11/17 Deisi Andrews MD [address] [place] [address] PCP - General FAMILY PRACTICE 02/13/17 03/10/17 Heber Adorno MD PCP - General 03/11/17 06/14/17 Dane Sullivan DO PCP - General 05/04/16 05/14/16 Dane Sullivan DO PCP - General 04/17/16 05/03/16 Deisi Andrews MD [address] [place] [address] [place] [address] PCP - General FAMILY PRACTICE 06/15/17 10/14/19 Asa Mcnamara MD [facility]. [facility] [address] [place] [address] [place] Equipment Services Associate CARDIOVASCULAR DISEASE 05/15/16 documented as of this encounter
--- OUTSIDE RECORDS SUMMARY | 2024-11-12 04:49 | XMS_ITS | Encounter Summary ---
Author Organization [facility] Address [facility]. [place], [place] [address] [place] [address] Care Team Providers Care Assurance Manager Insurance Name Role Phone Dane Sullivan DO Primary Care Provider + [phone] Asa Mcnamara MD Unavailable [phone] Deisi Andrews MD Primary Care Provider [phone] Heber Adorno MD Primary Care Provider Unavailable Dane Sullivan DO Primary Care Provider + [phone] Dane Sullivan DO Primary Care Provider + [phone] Dane Sullivan DO Primary Care Provider + [phone] Deisi Andrews MD Primary Care Provider [phone] Encounter Details Date Type Department Care Team (Latest Contact Info) Description 04/16/2016 Abstract [facility] Social History Tobacco Use Types Packs/Day Years Used Date Smoking Tobacco: Never Assessed Comments Unknown Sex and Gender Information Value Date Recorded Sex Assigned at Female 12/06/2019 3:36 PM BRAND MARKETING MANAGER Legal Sex Female 5:20 PM CDT Gender Identity Female 12/06/2019 3:36 PM BRAND MARKETING MANAGER Sexual Orientation Straight 12/06/2019 3: 36 PM BRAND MARKETING MANAGER documented as of this encounter Plan of Treatment Not on file documented as of this encounter Visit Diagnoses Not on filedocumented in this encounter Care Teams Assurance Manager Insurance Relationship Specialty Start Date End Date Dane Sullivan DO PCP - General FAMILY PRACTICE 05/15/16 02/11/17 Deisi Andrews MD [address] [place] [address] PCP - General FAMILY PRACTICE 02/13/17 03/10/17 Heber Adorno MD PCP - General 03/11/17 06/14/17 Dane Sullivan DO PCP - General 05/04/16 05/14/16 Dane Sullivan DO PCP - General 04/17/16 05/03/16 Dane Sullivan DO PCP - General 03/26/16 04/16/16 Deisi Andrews MD [address] [place] [address] PCP - General FAMILY PRACTICE 06/15/17 10/14/19 Asa Mcnamara MD [facility]. [facility] [address] [place] [address] [place] Weight Checker CARDIOVASCULAR DISEASE 05/15/16 documented as of this encounter
--- OUTSIDE RECORDS SUMMARY | 2024-11-12 04:49 | XMS_ITS | Encounter Summary ---
Author Organization [facility] Address [address] [facility]. [place], [place] [address] [place] [address] Care Team Providers Care Clay Modeler Name Role Phone Dane Sullivan DO Primary Care Provider + [phone] Asa Mcnamara MD Unavailable [phone] Deisi Andrews MD Primary Care Provider [phone] Heber Adorno MD Primary Care Provider Unavailable Dane Sullivan DO Primary Care Provider + [phone] Dane Sullivan DO Primary Care Provider + [phone] Dane Sullivan DO Primary Care Provider + [phone] Deisi Andrews MD Primary Care Provider [phone] Encounter Details Date Type Department Care Team (Late st Contact Info) Description 04/01/2016 Abstract [facility] [place] [address] [place] [address] Carlin Jaquez, DPDilcia [address] [place] [address] Social History Tobacco Use Types Packs/Day Years Used Date Smoking Tobacco: Never Assessed Comments Unknown Sex and Gender Information Value Date Recorded Sex Assigned at Female 12/06/2019 3:36 PM PARTICIPANT ADMINISTRATOR Legal Sex Female 5:20 PM CDT Gender Identity Female 12/06/2019 3:36 PM PARTICIPANT ADMINISTRATOR Sexual Orientation Straight 12/06/2019 3: 36 PM PARTICIPANT ADMINISTRATOR documented as of this encounter Last Filed Vital Signs Vital Sign Reading Time Taken Comments Blood Pressure 134/66 04/01/2016 9:08 AM CDT Pulse - - Temperature - - Respiratory Rate - - Oxygen Saturation - - Inhaled Oxygen Concentration - - Weight 102.1 kg (225 lb) 04/01/2016 9:08 AM CDT Height 160 cm (5' 3 ) 04/01/2016 9:08 AM CDT Body Mass Index 39.86 04/01/2016 9:08 AM CDT documented in this encounter Progress Notes * Carlin Jaquez DPM - 04/01/2016 9:00 AM CDT Reason For Visit New Patient Visit Chief Complaint 1. Foot Problem History of Present Illness Foot Problem: The patient presents with complaints of gradual onset of constant episodes of severe calluses. Episodes last about 5 years Symptoms are worsening (lt foot painful callus) HPI: Patient is concerned about an ulceration. Review of Systems Constitutional: night sweats and feeling tired. Cardiovascular: cold legs and lower extremity edema. Respiratory: shortness of breath, cough, dyspnea and wheezing. Gastrointestinal: diarrhea. Genitourinary: incontinence and urinary urgency. Musculoskeletal: toe pain, toe stiffness, foot pain, foot swelling, foot stiffness, ankle swelling,ankle stiffness, lower leg pain, lower leg swelling, lower leg stiffness and deformity. Integumentary: toenail pain, toenail discoloration, poorly healing wound/ulcer, ingrown toenail andtoenail thickening. Neurological: limb weakness, increased pain/touch sensitivity and burning sensation. Psychiatric: anxiety, depression and sleep disturbances. Active Problems 1. Anxiety (300.00) (F41.9) 2. Chest pain (786.50) (R07.9) 3. Chronic obstructive pulmonary disease (496) (J44.9) 4. Chronic pain (338.29) (G89.29) 5. Corns and callosity (700) (L84) 6. Cough (786.2) (R05) 7. Diabetes mellitus, type 2 (250.00) (E11.9) 8. Diarrhea (787.91) (R19.7) 9. Flank pain (789.09) (R10.9) 10. History of CVA (cerebrovascular accident) (V12.54) (Z86.73) 11. Hyperlipidemia (272.4) (E78.5) 12. Hypertension (401.9) (I10) 13. Limb swelling (729.81) (M79.89) 14. Overactive bladder (596.51) (N32.81) 15. Proteinuria (791.0) (R80.9) 16. Smoking (305.1) (F17.200) Past Medical History 1. History of arthritis [...] Smoking (305.1) (F17.200) Immunizations Influenza --- Series1: [id number] Current Meds 1. AmLODIPine Besylate 5 MG Oral Tablet; TAKE 1 TABLET DAILY DIRECTED; Therapy: 25Sep2015 to (Evaluate:27Uui4053) Requested for: [id number]; Last Rx:26Mar2016 Ordered 2. Aspirin 325 MG Oral Tablet; Therapy: (Recorded:59Mcg6549) to Recorded 3. Cyclobenzaprine HCl - 10 MG Oral Tablet; TAKE 1 TABLET QD-BID PRN; Therapy: 27Nov2015 to (Last Rx:27Nov2015) Requested for: 27Nov2015 Ordered 4. Losartan Potassium 100 MG Oral Tablet; TAKE ONE TABLET BY MOUTH ONCE DAILY; Therapy: 10Mar2016 to (Evaluate:05Dec2016) Requested for: 10Mar2016; Last Rx:[id number] Ordered 5. MetFORMIN HCl - 500 MG Oral Tablet; TAKE ONE TABLET BY MOUTH TWICE DAILY WITH MEALS; Therapy: 10Mar2016 to (Evaluate:61Yoj0804) Requested for: 10Mar2016; Last Rx:[id number] Ordered 6. Montelukast Sodium 10 MG Oral Tablet; TAKE 1 TABLET DAILY Requested for: 05Yfu5830; Last Rx:[id number] Ordered 7. Pravastatin Sodium 40 MG Oral Tablet; TAKE ONE TABLET BY MOUTH ONCE DAILY; Therapy: 09Ybe3403 to (Evaluate:11Tyu0008) Requested for: 12Feb2016; Last Rx:12Feb2016 Ordered 8. PriLOSEC 20 MG Oral Capsule Delayed Release (Omeprazole); Therapy: (Recorded:[id number]) to Recorded 9. PROzac 40 MG Oral Capsule (FLUoxetine HCl); Therapy: (Recorded:11Kfq6854) to Recorded 10. Qvar 40 MCG/ACT Inhalation Aerosol Solution; INHALE ONE PUFF BY MOUTH TWICE DAILY; Therapy: 67Iqx9146 to (Evaluate:23Sep2016) Requested for: 27Mar2016; Last Rx:27Mar2016 Ordered 11. Ventolin HFA 108 (90 Base) MCG/ACT Inhalation Aerosol Solution; INHALE TWO PUFFS BY MOUTH EVERY 4 TO 6 HOURS NEEDED; Therapy: 44Nfu6264 to (Evaluate:22Feb2016) Requested for: 16Dec2015; Last Rx:[id number] Ordered 12. Xanax 1 MG Oral Tablet (ALPRAZolam); Therapy: (Recorded:[id number]) to Recorded Allergies 1. Halcion 2. Haldol 3. Penicillins 4. Risperidone and Related Vitals Recorded: 01Apr2016 09:08AM Systolic 134 Diastolic 66 Height 5 ft 3 in Weight 225 lb BMI Calculated 39.86 BSA Calculated 2.03 Physical Exam Constitutional: General Appearance: No acute distress, well appearing and well nourished. Cardiovascular: Vascular Exam: Dorsalis pedis pulses were 2/4 bilaterally. Posterior tibial pulses were 2/4 bilaterally. Elevation Pallor: absent bilaterally. Dependence rubor was absent bilaterally. Capillary refill time was between 1-3 seconds bilaterally. Orthopedic/Biomechanical: Range of Motion: Normal bilateral first MPJ ROM, normal bilateral second MPJ ROM, normal bilateral third MPJ ROM, normal bilateral fourth MPJ ROM, normal bilateral fifth MPJ ROM, normal bilateral MTJROM, normal bilateral STJ ROM and normal bilateral AJ ROM. Foot Strength: Normal dorsiflexion (5/5), normal plantarflexion (5/5), normal inversion (5/5), and normal eversion (5/5) bilaterally. Inspection: Foot Type: cavus appearance bilaterally. (Partially compensated plantarflexed 1st ray). Gait: antalgic on the left side. Skin: Porokeratotic lesion plantar 5th MPJ of left. There is some mild hemorrhage of the distal portion of the lesion. With debridement, there is no ulceration. There is 1 small lesion that is proximal that could be a wart. Skin Findings: Normal, no rashes or lesions. Findings include normal skin appearance, normal skin texture and normal skin turgor. Toes: Normal digits and nails without clubbing or cyanosis bilaterally. There was no toenail elongation, hypertrophy, discoloration, ingrowing, subungal debris, tenderness, and thickening bilaterally. Neurologic: Sensation intact to light touch, sharp and dull sensations, and Patellar & Achilles reflexes bilateral. Psychiatric: Oriented to person, place, and time. Results/Data *Urine dip auto In Office 26Mar2016 11:29AM Dane Sullivan Test Name Result Flag Reference Color Yellow Clarity Clear Glucose Negative Bilirubin Negative Ketones Negative Specific [place] 1.030 Blood Negative pH 5.5 5.0 - 7.0 Protein 100 mg/dL-2+ Urobilinogen 0.2 E.U./dL Nitrites Negative Leukocytes Negative *A1C In Office 26Mar2016 11:28AM Dane Sullivan Test Name Result Flag Reference A1C 5.9% 4.2 - 6.5 % HbA1C *LIPID Cholestech In Office 26Mar2016 11:28AM Dane Sullivan Test Name Result Flag Reference *HDL 43mg/dL 40 - 60 mg/dL Non-HDL 146mg/dL *Triglycerides 298mg/dL A < 150 mg/dL *LDL 87mg/dL *Ratio 4.4 < or = 4.5 *Total Cholestrol 189 < 200 mg/dL Compr Metabolic Prof ( CMP ) 26Mar2016 10:15AM Dane Sullivan Test Name Result Flag Reference Glucose 135 mg/dL H 70-99 Blood Urea Nitrogen (BUN) 12 mg/dL 8-23 Creatinine 0.70 mg/dL 0.60-1.10 Sodium (Na) 142 mmol/L 136-145 Potassium (K) 4.1 mmol/L 3.5-5.1 Chloride (Cl) 103 mmol/L 98-107 Carbon Dioxide (CO2) 25 mmol/L 22-29 Total Bilirubin 0.3 mg/dL 0.2-1.2 Calcium 9.3 mg/dL 8.6-10.2 Alkaline Phosphatase (ALKP) 132 IU/L H 35-104 AST/GOT 18 IU/L 0-32 Total Protein 7.4 g/dL 6.4-8.3 Albumin 4.5 g/dL 3.5-5.2 ALT/GPT 32 IU/L 0-33 Globulin, Calc 2.9 g/dL 2.3-3.6 A:G Ratio 1.6 1.0-2.0 Anion Gap 18 8-20 Glomerular Filt Rate Calc >60 mL/min/1.73m'2 >60 Glomerular Filt Rate (AA) Calc >60 >60 NOTE: eGFR is not calculated for patients <18 years of age. This is an estimated GFR (CKD EPI) and should not be used for calculating drug doses. mL/min/1.73m'2 TSH W Reflex Free T4 26Mar2016 10:15AM Sullivan Dane Test Name Result Flag Reference TSH w Reflex Free T4 1.81 mIU/mL 0.27-4.20 FREE T4 NOT INDICATED CBC W Differential 26Mar2016 10:15AM Sullivan Dane Test Name Result Flag Reference WBC 10.1 X10'3/uL 4.8-10.8 Red Blood Cell Count (RBC) 5.14 X10'6/uL 4.20-5.40 Hemoglobin (HGB) 14.4 g/dL 12.0-16.0 Hematocrit (HCT) 45.4 % 38.0-48.0 Mean Corpuscular Volume (MCV) 88.3 fL 81.0-99.0 Mean Corpuscular Hgb (MCH) 28.0 pg 27.0-31.0 Mean Corpuscular Hgb Conc (MCH 31.7 g/dL L 32.0-36.0 Red Cell Distrib Width (RDW) 13.8 % 11.5-14.5 Platelet Count (PLT) 236 X10'3/uL 130-400 Mean Platelet Volume (MPV) 10.3 fL 9.3-12.2 Differential Type AUTOMATED Neutrophils % (Auto) 69.0 % H 43.0-65.0 Lymphocytes % (Auto) 21.9 % 20.0-46.0 Monocytes % (Auto) 5.7 % 5.0-12.0 Eosinophils % (Auto) 2.4 % 1.0-3.0 Basophils % (Auto) 0.5 % 0.0-1.0 IMMATURE GRANULOCYTES 0.5 % 0.0-1.0 Assessment 1. Pes cavus (736.73) (M21.6X9) 2. Porokeratosis (757.39) (Q82.8) 3. Plantar warts (078.12) (B07.0) Plan Chronic obstructive pulmonary disease 1. Montelukast Sodium 10 MG Oral Tablet (Singulair); TAKE 1 TABLET DAILY 2. Qvar 40 MCG/ACT Inhalation Aerosol Solution; INHALE ONE PUFF BY MOUTH TWICE DAILY 3. Ventolin HFA 108 (90 Base) MCG/ACT Inhalation Aerosol Solution; INHALE TWO PUFFS BY MOUTH EVERY 4 TO 6 HOURS NEEDED Chronic pain 4. Cyclobenzaprine HCl - 10 MG Oral Tablet; TAKE 1 TABLET QD-BID PRN Health Maintenance 5. MetFORMIN HCl - 500 MG Oral Tablet; TAKE ONE TABLET BY MOUTH TWICE DAILY WITH MEALS Hyperlipidemia 6. Pravastatin Sodium 40 MG Oral Tablet; TAKE ONE TABLET BY MOUTH ONCE DAILY Hypertension 7. AmLODIPine Besylate 5 MG Oral Tablet; TAKE 1 TABLET DAILY DIRECTED 8. Losartan Potassium 100 MG Oral Tablet; TAKE ONE TABLET BY MOUTH ONCE DAILY Unlinked 9. Aspirin 325 MG Oral Tablet 10. PriLOSEC 20 MG Oral Capsule Delayed Release (Omeprazole) 11. PROzac 40 MG Oral Capsule (FLUoxetine HCl) 12. Xanax 1 MG Oral Tablet (ALPRAZolam) Today, we discussed pathology and treatment options. Trimmed the lesion. She shall watch for any signs of infection which were discussed. Follow up in 1 week to 10 days Signatures Electronically signed by : Carlin Jaquez DPM; Apr 15 2016 10:16AM PARTICIPANT ADMINISTRATOR (Author) documented in this encounter Plan of Treatment Not on file documented as of this encounter Visit Diagnoses Not on filedocumented in this encounter Care Teams Clay Modeler Relationship Specialty Start Date End Date Dane Sullivan DO PCP - General FAMILY PRACTICE 05/15/16 02/11/17 Deisi Andrews MD [address] [place] [address] PCP - General FAMILY PRACTICE 02/13/17 03/10/17 Heber Adorno MD PCP - General 03/11/17 06/14/17 Dane Sullivan DO PCP - General 05/04/16 05/14/16 Dane Sullivan DO PCP - General 04/17/16 05/03/16 Dane Sullivan DO PCP - General 03/26/16 04/16/16 Deisi Andrews MD [address] [place] [address] PCP - General FAMILY PRACTICE 06/15/17 10/14/19 Asa Mcnamara MD [facility]. [facility] [address] [place] [address] Sigel Range Mechanic CARDIOVASCULAR DISEASE 05/15/16 documented as of this encounter
--- OUTSIDE RECORDS SUMMARY | 2024-11-12 04:49 | XMS_ITS | Encounter Summary ---
Author Organization [facility] Address [address] [facility]. [place], [place] [address] [place] [address] Care Team Providers Care Lockstitch Cup Setter Name Role Phone Dane Sullivan DO Primary Care Provider + [phone] Asa Mcnamara MD Unavailable [phone] Deisi Andrews MD Primary Care Provider [phone] Heber Adorno MD Primary Care Provider Unavailable Dane Sullivan DO Primary Care Provider + [phone] Dane Sullivan DO Primary Care Provider + [phone] Dane Sullivan DO Primary Care Provider + [phone] Deisi Andrews MD Primary Care Provider [phone] Encounter Details Date Type Department Care Team (Latest Contact Info) Description 04/03/2016 Abstract [facility] Medical Group Social History Tobacco Use Types Packs/Day Years Used Date Smoking Tobacco: Never Assessed Comments Unknown Sex and Gender Information Value Date Recorded Sex Assigned at Female 12/06/2019 3:36 PM PICC NURSE Legal Sex Female 5:20 PM CDT Gender Identity Female 12/06/2019 3:36 PM PICC NURSE Sexual Orientation Straight 12/06/2019 3: 36 PM PICC NURSE documented as of this encounter Plan of Treatment Not on file documented as of this encounter Visit Diagnoses Not on filedocumented in this encounter Care Teams Lockstitch Cup Setter Relationship Specialty Start Date End Date Dane Sullivan DO PCP - General FAMILY PRACTICE 05/15/16 02/11/17 Deisi Andrews MD [address] [place] [address] PCP - General FAMILY PRACTICE 02/13/17 03/10/17 Heber Adorno MD PCP - General 03/11/17 06/14/17 Dane Sullivan DO PCP - General 05/04/16 05/14/16 Dane Sullivan DO PCP - General 04/17/16 05/03/16 Dane Sullivan DO PCP - General 03/26/16 04/16/16 Deisi Andrews MD [address] [place] [address] PCP - General FAMILY PRACTICE 06/15/17 10/14/19 Asa Mcnamara MD [facility]. [facility] [address] [place] [address] [place] Geothermal Operations Engineer CARDIOVASCULAR DISEASE 05/15/16 documented as of this encounter
--- OUTSIDE RECORDS SUMMARY | 2024-11-12 04:49 | XMS_ITS | Encounter Summary ---
Author Organization [facility] Address [address] [facility]. [place], [place] [address] [place] [address] Care Team Providers Care Coin Machine Servicer Repairer Name Role Phone Dane Sullivan DO Primary Care Provider + [phone] Asa Mcnamara MD Unavailable [phone] Deisi Andrews MD Primary Care Provider [phone] Heber Adorno MD Primary Care Provider Unavailable Dane Sullivan DO Primary Care Provider + [phone] Dane Sullivan DO Primary Care Provider + [phone] Dane Sullivan DO Primary Care Provider + [phone] Deisi Andrews MD Primary Care Provider [phone] Encounter Details Date Type Department Care Team (Latest Contact Info) Description 03/31/2016 Abstract [facility] Medical Group Social History Tobacco Use Types Packs/Day Years Used Date Smoking Tobacco: Never Assessed Comments Unknown Sex and Gender Information Value Date Recorded Sex Assigned at Female 12/06/2019 3:36 PM IMPORT EXPORT AGENT Legal Sex Female 5:20 PM CDT Gender Identity Female 12/06/2019 3:36 PM IMPORT EXPORT AGENT Sexual Orientation Straight 12/06/2019 3: 36 PM IMPORT EXPORT AGENT documented as of this encounter Plan of Treatment Not on file documented as of this encounter Visit Diagnoses Not on filedocumented in this encounter Care Teams Coin Machine Servicer Repairer Relationship Specialty Start Date End Date Dane Sullivan DO PCP - General FAMILY PRACTICE 05/15/16 02/11/17 Deisi Andrews MD [address] [place] [address] PCP - General FAMILY PRACTICE 02/13/17 03/10/17 Heber Adorno MD PCP - General 03/11/17 06/14/17 Dane Sullivan DO PCP - General 05/04/16 05/14/16 Dane Sullivan DO PCP - General 04/17/16 05/03/16 Dane Sullivan DO PCP - General 03/26/16 04/16/16 Deisi Andrews MD [address] [place] [address] PCP - General FAMILY PRACTICE 06/15/17 10/14/19 Asa Mcnamara MD [facility]. [facility] [address] [place] [address] Greene Pilot Safety Inspector CARDIOVASCULAR DISEASE 05/15/16 documented as of this encounter
--- OUTSIDE RECORDS SUMMARY | 2024-11-12 04:49 | XMS_ITS | Encounter Summary ---
Author Organization [facility] Address [facility]. [place], [place] [address] [place] [address] Care Team Providers Care Quality Technician Name Role Phone SullivanDane rowley Gricel FLORES Primary Care Provider + [phone] Asa Mcnamara MD Unavailable [phone] Deisi Andrews MD Primary Care Provider [phone] Heber Huynh MD Primary Care Provider Unavailable Deisi Andrews MD Primary Care Provider [phone] Encounter Details Date Type Department Care Team (Late st Contact Info) Description 06/30/2016 Abstract [facility] [place] [id number] Lorelei Norton MD [facility] [address] [place], [place] [id number] Social History Tobacco Use Types Packs/Day Years Used Date Smoking Tobacco: Every Day Cigarettes Smokeless Tobacco: Never Alcohol Use Standard Drinks/Week Comments No 0 (1 standard drink = 0.6 oz pur e alcohol) Comments Unknown Sex and Gender Information Value Date Recorded Sex Assigned at Female 12/06/2019 3:36 PM STUFFING 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 Legal Sex Female 5:20 PM CDT Gender Identity Female 12/06/2019 3:36 PM STUFFING 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 Sexual Orientation Straight 12/06/2019 3: 36 PM STUFFING 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 Not on file Not on file documented as of this encounter Plan of Treatment Not on file documented as of this encounter Procedures Procedure Name Priority Date/Time Associated Diagnosis Comments POCT GLUCOSE - TEMPLE DOCKED DEVICE Routine 06/30/2016 9:35 AM CDT documented in this encounter Results * (ABNORMAL) POCT glucose (06/30/2016 9:35 AM CDT) GLUCOSE POC 124(H) 70 - 99 mg/dL 06/30/2016 12:40 PM CDT [facility] ORDERS INTERFACE 06/30/2016 9:35 AM CDT 06/30/2016 12:40 PM CDT us Generic Conversion Md HUYNH POCT ORDERABLES - DEVIC E Final Result [facility] ORDERS INTERFACE US documented in this encounter Visit Diagnoses Diagnosis Radiculopathy of lumbar region Thoracic or lumbosacral neuritis or radiculitis, unspecified documented in this encounter Care Teams Quality Technician Relationship Specialty Start Date End Date Dane Sullivan DO PCP - General FAMILY PRACTICE 05/15/16 02/11/17 Deisi Andrews MD [address] [place] [address] PCP - General FAMILY PRACTICE 02/13/17 03/10/17 Md Generic MD Vivi PCP - General 03/11/17 06/14/17 Deisi Andrews MD [address] [place] [address] PCP - General FAMILY PRACTICE 06/15/17 10/14/19 Asa Mcnamara MD [facility] [address] [place] [address] Stephen Opera Singer CARDIOVASCULAR DISEASE 05/15/16 documented as of this encounter
--- OUTSIDE RECORDS SUMMARY | 2024-11-12 04:49 | XMS_ITS | Encounter Summary ---
Author Organization [facility] Address [facility]. [place], [place] [address] [place] [address] Care Team Providers Care Oiler Bander Name Role Phone Tere Monae DO Primary Care Provider + [phone] Asa Mcnamara MD Unavailable [phone] Deisi Andrews MD Primary Care Provider [phone] Heber Adorno MD Primary Care Provider Unavailable Deisi Andrews MD Primary Care Provider [phone] Encounter Details Date Type Department Care Team (Latest Contact Info) Description 06/25/2016 Abstract [facility] Medical Group Heber Adorno MD Social History Tobacco Use Types Packs/Day Years Used Date Smoking Tobacco: Every Day Cigarettes Smokeless Tobacco: Never Alcohol Use Standard Drinks/Week Comments No 0 (1 standard drink = 0.6 oz pur e alcohol) Comments Unknown Sex and Gender Information Value Date Recorded Sex Assigned at Female 12/06/2019 3:36 PM INTERIOR DESIGN INSTRUCTOR Legal Sex Female 5:20 PM CDT Gender Identity Female 12/06/2019 3:36 PM INTERIOR DESIGN INSTRUCTOR Sexual Orientation Straight 12/06/2019 3: 36 PM INTERIOR DESIGN INSTRUCTOR 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 [address] Patient: RODY CRUZ [facility] Rec#: [id number] Birthdate: 1960 Admit/Svce Date: 06/25/2016 Disch Date: Attending Md: ELI HAY MD CHART DOCUMENT PREOPERATIVE DIAGNOSIS: Knee osteoarthritis. POSTOPERATIVE DIAGNOSIS: Knee osteoarthritis. SURGERY PERFORMED: Bilateral knee injections under fluoroscopy. DATE: 06/25/2016 SURGEON: ELI HAY MD INTELLECTUAL PROPERTY COUNSEL: REFERRING PHYSICIAN: CAPT. TERE MONAE D.O. CHIEF COMPLAINT: Bilateral knee pain. DESCRIPTION OF PROCEDURE: Risks and benefits discussed. Written consent obtained. I used 25-gauge 3-1/2-inch needles targeting the patellofemoral joint on the lateral view on the left and right side. Negative aspiration. Medication injected was 40 mg of Kenalog, 2 mL of 0.25% bupivacaine injected per level. No complications. The patient tolerated the procedure well. Patient was discharged in stable condition with appropriate post procedure instructions Electronically Signed By: ELI HAY M.D. 06/25/2016 04:16 P ELI HAY M.D. A #[id number] P/ma cc: Michelle EPSTEIN D.O. documented in this encounter Plan of Treatment Not on file documented as of this encounter Visit Diagnoses Not on filedocumented in this encounter Care Teams Oiler Bander Relationship Specialty Start Date End Date Tere Monae DO PCP - General FAMILY PRACTICE 05/15/16 02/11/17 Deisi Andrews MD [address] [place] [address] [place] [address] PCP - General FAMILY PRACTICE 02/13/17 03/10/17 Heber Adorno MD PCP - General 03/11/17 06/14/17 Deisi Andrews MD [address] [place] [address] [place] [address] PCP - General FAMILY PRACTICE 06/15/17 10/14/19 Asa Mcnamara MD [facility]. [facility] [address] [place] [address] [place] Manager Entry CARDIOVASCULAR DISEASE 05/15/16 documented as of this encounter
--- OUTSIDE RECORDS SUMMARY | 2024-11-12 04:49 | XMS_ITS | Encounter Summary ---
Author Organization [facility] Address [address] [facility]. [place], [place] [address] [place] [address] Care Team Providers Care Load Mixer Name Role Phone Dane Sullivan DO Primary Care Provider + [phone] Asa Mcnamara MD Unavailable [phone] Deisi Andrews MD Primary Care Provider [phone] Heber Adorno MD Primary Care Provider Unavailable Dane Sullivan DO Primary Care Provider + [phone] Dane Sullivan DO Primary Care Provider + [phone] Dane Sullivan DO Primary Care Provider + [phone] Deisi Andrews MD Primary Care Provider [phone] Encounter Details Date Type Department Care Team (Latest Contact Info) Description 04/14/2016 Abstract [facility] Carlin Jaquez, [place] [address] [place] [address] Social History Tobacco Use Types Packs/Day Years Used Date Smoking Tobacco: Never Assessed Comments Unknown Sex and Gender Information Value Date Recorded Sex Assigned at Female 12/06/2019 3:36 PM DINING SERVICE SUPERVISOR Legal Sex Female 5:20 PM CDT Gender Identity Female 12/06/2019 3:36 PM DINING SERVICE SUPERVISOR Sexual Orientation Straight 12/06/2019 3: 36 PM DINING SERVICE SUPERVISOR documented as of this encounter Plan of Treatment Not on file documented as of this encounter Procedures Procedure Name Priority Date/Time Associated Diagnosis Comments TISSUE EXAM BY PATHOLOGIST Routine 04/14/2016 12:00 AM CDT documented in this encounter Results * TISSUE EXAM BY PATHOLOGIST (04/14/2016 12:00 AM CDT) COPATH REPORT SURG ? - Surgical Pathology Report Patient Name: RODY CRUZ Med. Rec. #:[id number] : 1960 (Age: 55) Gender: F Physician(s): Carlin Sullivan Location: [facility] Room Number: Billing #: [id number]\ Copy To: Collected: 04/14/2016 Received: 04/15/2016 Reported: 04/17/2016 Specimen(s) Lesion, left great toe Final Pathologic Diagnosis LESION, LEFT GREAT TOE, BIOPSY: ? BENIGN FIBROEPITHELIAL POLYP. ? MILD DERMAL CHRONIC INFLAMMATION. ? NO MALIGNANT CHANGE IDENTIFIED. [facility]/04/17/2016 Electronically Signed Out ByArchana Alvarado MD Microscopic Description Reviewed are two H overlying hyper and parakeratosis. ??Some acanthosis in the epidermis is noted as well as some reactive change including focal spongiosis. ?? The underlying dermis reveals some increased chronic inflammation primarily composed of lymphocytes as well as some increased number of reactive appearing small vessels. ??No prominent cytologic atypia or malignant change is identified. Clinical History 729.9, M79.9, soft tissue mass, Gross Description The specimen is received in a container labeled with the patient's name Rody Cruz, date of and left great toe . ??The specimen consists of an irregularly shaped nodule which measures 0.5 x 0.5 x 0.3 cm. ??The presumed base is inked in black. ??The specimen is bisected and entirely submitted in a single cassette./ /max/04/16/2016 Billing Fee Code(s): 51231 [facility] TO EPIC CONVERSION 04/14/2016 04/14/2016 Narrative [facility] TO EPIC CONVERSION - 04/15/2016 10:59 AM CDT Result Communication: No patient communication needed at this time Carlin Jaquez DPM PATHOLOGY/CYTOLOGY ORDERABLES Fi nal Result [facility] TO EPIC CONVERSION documented in this encounter Visit Diagnoses Not on filedocumented in this encounter Care Teams Load Mixer Relationship Specialty Start Date End Date Dane Sullivan DO PCP - General FAMILY PRACTICE 05/15/16 02/11/17 Deisi Andrews MD [address] [place] [address] PCP - General FAMILY PRACTICE 02/13/17 03/10/17 Heber Adorno MD PCP - General 03/11/17 06/14/17 Dane Sullivan DO PCP - General 05/04/16 05/14/16 Dane Sullivan DO PCP - General 04/17/16 05/03/16 Dane Sullivan DO PCP - General 03/26/16 04/16/16 Deisi Andrews MD [address] [place] [address] PCP - General FAMILY PRACTICE 06/15/17 10/14/19 Asa Mcnamara MD [address] [address] Stephen Pyrometer Operator CARDIOVASCULAR DISEASE 05/15/16 documented as of this encounter
--- OUTSIDE RECORDS SUMMARY | 2024-11-12 04:49 | XMS_ITS | Encounter Summary ---
Author Organization [facility] Address [address] [facility] [place] [address] [place] [address] Care Team Providers Care Diagnostic Sales Specialist Name Role Phone Tere Monae Primary Care Provider [phone] Asa Mcnamara MD Unavailable [phone] Encounter Details Date Type Department Care Team (Late st Contact Info) Description 08/05/2016 Orders Only [facility] [address] [place] [address] Asa Mcnamara MD [facility] [address] [place] [address] Social History Tobacco Use Types Packs/Day Years Used Date Smoking Tobacco: Every Day Cigarettes Smokeless Tobacco: Never Alcohol Use Standard Drinks/Week Comments No 0 (1 standard drink = 0.6 oz pur e alcohol) Comments Unknown Sex and Gender Information Value Date Recorded Sex Assigned at Female 12/06/2019 3:36 PM COMPOUNDER FLAVORINGS Legal Sex Female 5:20 PM CDT Gender Identity Female 12/06/2019 3:36 PM COMPOUNDER FLAVORINGS Sexual Orientation Straight 12/06/2019 3: 36 PM COMPOUNDER FLAVORINGS 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 VASCULAR LAB ? Pat.Name: ??RODY CRUZ ? Pat.ID: ?[id number] ? St.Date: ?? 08/05/2016 ? Refer.MD: ??TERE MONAE DO ? Exam Time: 3:34:00 PM ? Study Type:SCOTTIE VS Arterial Doppler KENZIE LTD ??Age: ??1960,55Y ? Sex: ? FEMALE ? Sonogrphr: Roxie Caba, RVT ? Reason for Study:PVD ? History / Clinical:OP STAT ? Procedures:Doppler waveforms, Digit PPG, Systolic Pressures w/KENZIE Race: ?C ? Risk Factors:Hypertension, Hyperlipidemia, Diabetes, COPD, Asthma, Back/spine disorder, CVA , Smoker present, Obesity, BMI Clinical Symptoms:Follow up stenting Surgery: ?? Iliac Stent BILAT [facility] 07/01 Medications:ASA, Plavix-Clopidogrel, Eliquis-Apixaban ++++++++++++++++++++++++++++++++++++ SUMMARY: ++++++++++++++++++++++++++++++++++++ Gail KENZIE Criteria: ?>1.30 [...] ??Posterior Tibial triphasic, medium amplitude with KENZIE 1.16 ; ??DP/Anterior Tibial triphasic, high amplitude with KENZIE 0.982 . Digit flow by PPG is medium amplitude with DBI 0.679 . Left leg: ??Common Femoral waveform is not assessed; ??Popliteal not assessed; ??Posterior Tibial bi-triphasic, high amplitude with KENZIE 1.11 ; ??DP/Anterior Tibial bi-triphasic, medium amplitude with KENZIE 0.911 . Digit flow by PPG is high amplitude with DBI 0.625 . Compared to previous exam done 6.3.16 , there is improvement. ?? SEE DUPLEX SCAN REPORT DONE TODAY. ?? CONCLUSION: ?? KENZIE right > 1.0 with triphasic waveforms, with toe index 0.679 . KENZIE left > 1.0 with triphasic waveforms, with toe index 0.625 . No significant peripheral arterial disease at rest. ?? No evidence of tibial artery disease bilaterally. ??There is no evidence of small vessel disease or embolism in either foot. ++++++++++++++++++++++++++++++++++++ MEASUREMENTS: ++++++++++++++++++++++++++++++++++++ ?PRESSURES Right Brachial ?? Brach P ?112 mmHg ? Right Ankle DP ?? AnkleDP P ?110 mmHg ? Right Ankle PT ?? AnklePT P ?130 mmHg ? Right Great Toe ?? GreatToe P ?76 mmHg ? Right KENZIE PT ?? KENZIE PT ?1.16 ? Right KENZIE DP ?? KENZIE DP ? 0.982 ? Right TBI ?? TBI ?0.679 ? Left Brachial ?? Brach P ?112 mmHg ? Left Ankle DP ?? AnkleDP P ?102 mmHg ? Left Ankle PT ?? AnklePT P ?124 mmHg ? Left Great Toe ?? GreatToe P ?70 mmHg ? Left KENZIE PT ?? KENZIE PT ?1.11 ? Left KENZIE DP ?? KENZIE DP ? 0.911 ? Left TBI ?? TBI ?0.625 ?STRESS 1 Minute ?? 1 Min ARM ?128 mmHg ?1 Min KENZIE ? 1.06 ? 1 Min Ankle ?136 mmHg ?1 Min LT KENZIE ?1.03 ? 1 Min LT Ankle ?? 132 mmHg ? Signed 08/06/2016 06:36 PM Jose Hawkins M.D. Procedure Note , Generic Conversion, - 08/06/2016 ARTERIAL DOPPLER - KENZIE BILATERAL LOWER EXTREMITY VASCULAR LAB Pat.Name: RODY CRUZ Pat.ID: [id number] .Date: 08/05/2016 Refer.MD: TERE MONAE DO Exam Time: 3:34:00 PM Study Type:SCOTTIE VS Arterial Doppler KENZIE [facility] Age: 3 1960,55Y Sex: FEMALE Sonogrphr: Roxie Caba, RVT Reason for Study:PVD History / Clinical:OP STAT Procedures:Doppler waveforms, Digit PPG, Systolic Pressures w/KENZIE Race: C Risk Factors:Hypertension, Hyperlipidemia, Diabetes, COPD, Asthma, Back/spine disorder, CVA , Smoker present, Obesity, BMI Clinical Symptoms:Follow up stenting Surgery: Iliac Stent BILAT [facility] 07/01 Medications:ASA, Plavix-Clopidogrel, Eliquis-Apixaban ++++++++++++++++++++++++++++++++++++ SUMMARY: ++++++++++++++++++++++++++++++++++++ [...] Signed 08/06/2016 06:36 PM Jose Hawkins M.D. Asa Mcnamara MD VASC Final Result documented in this encounter Visit Diagnoses Not on filedocumented in this encounter Care Teams Diagnostic Sales Specialist Relationship Specialty Start Date End Date Tere Monae DO PCP - General FAMILY PRACTICE 05/15/16 02/11/17 Asa Mcnamara MD [facility]. [facility] [address] [place] [address] [place] Bid Manager CARDIOVASCULAR DISEASE 05/15/16 documented as of this encounter
--- OUTSIDE RECORDS SUMMARY | 2024-11-12 04:49 | XMS_ITS | Encounter Summary ---
Author Organization [facility] Address [facility]. [place], [place] [address] [place] [address] Care Team Providers Care Rewards Consultant Name Role Phone Dane Sullivan DO Primary Care Provider + [phone] Asa Mcnamara MD Unavailable [phone] Deisi Andrews MD Primary Care Provider [phone] Heber Adorno MD Primary Care Provider Unavailable Deisi Andrews MD Primary Care Provider [phone] Encounter Details Date Type Department Care Team (Latest Contact Info) Description 05/20/2016 Abstract [facility] Md Generic MD Vivi Social History Tobacco Use Types Packs/Day Years Used Date Smoking Tobacco: Every Day Cigarettes Smokeless Tobacco: Never Alcohol Use Standard Drinks/Week Comments No 0 (1 standard drink = 0.6 oz pur e alcohol) Comments Unknown Sex and Gender Information Value Date Recorded Sex Assigned at Female 12/06/2019 3:36 PM COURSEWARE DEVELOPER Legal Sex Female 5:20 PM CDT Gender Identity Female 12/06/2019 3:36 PM COURSEWARE DEVELOPER Sexual Orientation Straight 12/06/2019 3: 36 PM COURSEWARE DEVELOPER 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 [address] [address] [place] [address] Chief Complaint: Follow Up - testing; Chest Pain; and Claudication Recommendations/Plan: ASSESSMENT: 1. Atypical chest pain. 2. Lifestyle limiting intermittent claudication. 3. Dyspnea on exertion. 4. Bilateral carotid artery disease, left carotid endarterectomy in 2014. 5. History of stroke. 6. Hypertension, overall, well controlled. 7. Dyslipidemia on statin. 8. Type II diabetes mellitus. 9. [id number] history of smoking. 10. Likely COPD. 11. Bilateral knee arthritis, possible surgery in near future. . RECOMMENDATION/PLAN: Chest pain is atypical. Recent stress test shows normal myocardial perfusion and normal EF. We will continue with risk factor modification. Continue aspirin. I have advised her to lower dose to 81 mg daily. She reports easy bruising. Ms. Zaidi reports lifestyle limiting claudication symptoms. Pedal pulses are weak, especially on right side. KENZIE is moderately reduced on right side. There is concern for Iliac disease. I will scheduled her for AIF and runoff. I have explained procedure, risks, benefits, complications. She agrees to proceed. The procedure will be scheduled later this month. I will start her on Cilostazol for symptom relief. Counseled about quitting smoking. Blood pressure is well controlled. She is on moderate intensity statin. Ms. Zaidi may have obstructive sleep apnea. She will benefit from an outpatient sleep study. It is my pleasure to participate in [facility] care. Further recommendations will be based on findings of vascular angiogram. Thank you for the consultation. History of Present Illness: Ms. Zaidi is a pleasant 55-year-old female. She has history of type II diabetes mellitus, hypertension, dyslipidemia and [id number] history of smoking. She returns for scheduled office visit. She continues to have chest pain off and on. Description is very atypical. She complains of pain under left breast. She describes this as something moving there. Symptoms only last for few seconds. Not associated with exertion. She has limited functional capacity. She gets out of breath walking 50 feet. She complains of pain in her legs with walking. Right leg is more symptomatic. She complains of pain in her right hip and calf muscles after walking a short distance. No history of rest pain. She sleeps with head elevated. Denies swelling in legs. She also has bilateral knee arthritis and wants to have surgery done later this year. DATA REVIEWED: 12-lead EKG done 04/08/2016 shows sinus rhythm, possible high lateral infarct. This could be incorrect lead placement. Occasional supraventricular ectopic beats, no significant ST abnormalities. Arterial Doppler Ultrasound done 03/07/2014 shows KENZIE of 0.88 on the right side with a TBI of 0.77. KENZIE 0.99 on the left side with TBI of 0.67. Echocardiogram done 04/17/2016 shows EF 65-70%, Mild concentric LVH. Grade I diastolic dysfunction, trace mitral regurgitation, mild tricuspid regurgitation. RVSP 35 mm Hg. Pharmacologic myoview Stress test done 04/20/2016: Clinically and electrocardiographically negative stress test. Normal myocardial perfusion, EF 69%. Arterial doppler ultrasound done 04/17/2016: KENZIE right leg 0.768, with toe index 0.56. Waveforms suggestive of infrageniculate disease, small vessel disease. KENZIE left leg 0.952, with toe index 0.784. Waveforms suggestive of infrageniculate disease. LE Duplex done 04/17/2016: Right: Mild, <50% stenosis at the common femoral. No significant flow limiting lesions Left: No significant flow limiting lesions. Medications: Current Outpatient Prescriptions: . aspirin 81 MG tablet, Take 1 tablet (81 mg total) by mouth daily., Disp: , Rfl: . cilostazol 50 MG tablet, Take 1 tablet (50 mg total) by mouth 2 (two) times daily., Disp: 60 tablet, Rfl: 2 . albuterol sulfate HFA (VENTOLIN HFA) 108 (90 BASE) MCG/ACT inhaler, Take 1 tablet by mouth daily., Disp: , Rfl: . ALPRAZolam (XANAX) 1 MG tablet, take 1 tablet by mouth three times a day, Disp: , Rfl: . amlodipine 5 MG tablet, Take 1 tablet by mouth daily., Disp: , Rfl: . beclomethasone (QVAR) 40 MCG/ACT inhaler, 2 (two) times daily. twice a day, Disp: , Rfl: . fexofenadine (SAMANTHA ALLERGY) 180 MG tablet, as directed, Disp: , Rfl: . fluoxetine (PROZAC) 20 MG capsule, Take 1 capsule by mouth daily., Disp: , Rfl: . hydrocodone-acetaminophen 10-325 MG per tablet, take 1 tablet by mouth three times a day, Disp: , Rfl: . ibuprofen 600 MG tablet, take 1 tablet by mouth 2-3 times a day, Disp: , Rfl: . isosorbide mononitrate ER (IMDUR) 30 MG 24 hr tablet, Take 1 tablet by mouth daily., Disp: , Rfl: . losartan 100 MG tablet, Take 1 tablet by mouth daily., Disp: , Rfl: . metFORMIN 500 MG tablet, Take 1 tablet by mouth 2 (two) times daily., Disp: , Rfl: . metoprolol succinate 25 MG 24 hr tablet, Take 1 tablet by mouth daily., Disp: , Rfl: . Multiple Vitamins-Minerals (PRESERVISION AREDS) capsule, Take 1 capsule by mouth 2 (two) times daily., Disp: , Rfl: . nitroGLYCERIN 0.4 MG SL tablet, place 1 tablet under tongue, for chest pain as needed up to 3 doses 5 mins apart. If taking 3rd dose, call 911., Disp: , Rfl: . omeprazole (PRILOSEC) 20 MG capsule, Take 1 tablet by mouth 2 (two) times daily., Disp: , Rfl: . pravastatin 40 MG tablet, Take 1 tablet by mouth daily., Disp: , Rfl: . zolpidem (AMBIEN) 10 MG tablet, Ambien (zolpidem) tablet ; as directed; 0; -Mar-2016; Active, Disp: , Rfl: Allergies Allergen Reactions . Haloperidol Other (see comment) . Penicillins Redness . Resperal-Dm [Lws-Nx-Rbg-Propyl Pcnsyn-Nrc-Dptiityuk] Unknown Past Medical History Diagnosis Date . Arthritis . Asthma . Chest pain, unspecified . Diabetes . Emphysema/COPD . Essential (primary) hypertension . GERD (gastroesophageal reflux disease) . Hypercholesterolemia . Migraines . PVD (peripheral vascular disease) . Stroke h/o Past Surgical History Procedure Laterality Date . Gallbladder surgery 2006 removal . section 1989 . Tubal ligation 1989 . Other procedure 2011 warts removed . Other procedure 2014 tube in left ear History Social History . Marital status: Single Spouse name: N/A . Number of children: 2 . 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 Smoking status: Current Every Day Smoker Packs/day: 0.50 Types: Cigarettes . Smokeless tobacco: Never Used . Alcohol use: No . Drug use: Yes Special: Marijuana . Sexual activity: Not on file Other Topics Concern . Caffeine Concern Yes coffee 4x a day Social History Narrative . None Family History Problem Relation Age of Onset . Heart Attack Sister 55 . Stent Sister 56 Family Status Relation Status . Mother at age 63 . Father at age 56 . Sister . Brother at age 48 Review of Systems Constitutional: Negative for malaise/fatigue and weight loss. HENT: Negative for hearing loss. Eyes: Negative for blurred vision and double vision. Respiratory: Positive for shortness of breath and wheezing. Negative for cough and hemoptysis. Cardiovascular: Positive for chest pain. Negative for palpitations. Gastrointestinal: Negative for blood in stool and melena. Genitourinary: Negative for dysuria. Musculoskeletal: Positive for joint pain and myalgias. Skin: Negative for rash. Neurological: Positive for tingling and headaches. Negative for sensory change and focal weakness. Endo/Heme/Allergies: Negative for polydipsia. Bruises/bleeds easily. Filed Vitals: 05/20/16 1246 05/20/16 1343 BP: 120/74 122/80 Pulse: 88 Weight: 101.6 kg (224 lb) Height: 5' 3 (1.6 m) Physical Exam Constitutional: She is oriented to person, place, and time. She appears well-developed and well-nourished. No distress. HENT: Nose: No mucosal edema. Mouth/Throat: Oropharynx is clear and moist and mucous membranes are normal. No oropharyngeal exudate. Neck: Neck supple. No JVD present. Carotid bruit is not present. Cardiovascular: Normal rate, regular rhythm, S1 normal and S2 normal. No extrasystoles are present. Exam reveals no gallop. No murmur heard. Femoral pulse is 1+ on R side, 2+ on L side. Popliteal pulse is 1+ on R side and 2+ left side. PT is 1+ on R side and 1+ L side. Dorsalis pedis is Not palpable on R side, 1+ left side. Pulmonary/Chest: Effort normal and breath [...] No results found for this visit on 05/20/16. Diagnoses/Impression: 1. Preoperative testing CBC W/DIFF AUTOMATED BASIC METABOLIC PANEL 2. PVD (peripheral vascular disease) CBC W/DIFF AUTOMATED BASIC METABOLIC PANEL 3. Claudication CBC W/DIFF AUTOMATED BASIC METABOLIC PANEL 4. HTN (hypertension) CBC W/DIFF AUTOMATED BASIC METABOLIC PANEL Follow up Plan for BMI: Follow up reason overweight: Recommended patient increases physical activity and Recommended eating a balanced diet. SEWARE DEVELOPER documented in this encounter Plan of Treatment Not on file documented as of this encounter Visit Diagnoses Not on filedocumented in this encounter Care Teams Rewards Consultant Relationship Specialty Start Date End Date Dane Sullivan DO PCP - General FAMILY PRACTICE 05/15/16 02/11/17 Deisi Andrews MD [address] [place] [address] PCP - General FAMILY PRACTICE 02/13/17 03/10/17 Heber Adorno MD PCP - General 03/11/17 06/14/17 Deisi Andrews MD [address] [place] [address] PCP - General FAMILY PRACTICE 06/15/17 10/14/19 Asa Mcnamara MD [address] [address] Stephen Line Driver CARDIOVASCULAR DISEASE 05/15/16 documented as of this encounter
--- OUTSIDE RECORDS SUMMARY | 2024-11-12 04:49 | XMS_ITS | Encounter Summary ---
Author Organization [facility] Address [address] [place] [address] [place] [address] Care Team Providers Care Systems Technologist Name Role Phone Dane Sullivan Primary Care Provider [phone] Asa Mcnamara MD Unavailable [phone] Encounter Details Date Type Department Care Team (Late st Contact Info) Description 05/20/2016 Orders Only [facility] AT [address] [address] Asa Mcnamara MD [address] [address] Social History Tobacco Use Types Packs/Day Years Used Date Smoking Tobacco: Every Day Cigarettes Smokeless Tobacco: Never Alcohol Use Standard Drinks/Week Comments No 0 (1 standard drink = 0.6 oz pur e alcohol) Comments Unknown Sex and Gender Information Value Date Recorded Sex Assigned at Female 12/06/2019 3:36 PM RECYCLING CENTER OPERATOR Legal Sex Female 5:20 PM CDT Gender Identity Female 12/06/2019 3:36 PM RECYCLING CENTER OPERATOR Sexual Orientation Straight 12/06/2019 3: 36 PM RECYCLING CENTER OPERATOR 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 [facility] [address] [place] [address] [place] Supervisor Pipeline CARDIOVASCULAR DISEASE 05/15/16 documented as of this encounter
--- OUTSIDE RECORDS SUMMARY | 2024-11-12 04:49 | XMS_ITS | Encounter Summary ---
Author Organization [facility] Address [address] [facility]. [place], [place] [address] [place] [address] Care Team Providers Care Radiology Transporter Name Role Phone Dane Sullivan DO Primary Care Provider + [phone] Asa Mcnamara MD Unavailable [phone] Deisi Andrews MD Primary Care Provider [phone] Heber Adorno MD Primary Care Provider Unavailable Dane Sullivan DO Primary Care Provider + [phone] Dane Sullivan DO Primary Care Provider + [phone] Dane Sullivan DO Primary Care Provider + [phone] Deisi Andrews MD Primary Care Provider [phone] Encounter Details Date Type Department Care Team (Late st Contact Info) Description 03/26/[address] [facility] Family Medicine - [address] [id number] Dane Sullivan DO [address] [phone] Social History Tobacco Use Types Packs/Day Years Used Date Smoking Tobacco: Never Assessed Comments Unknown Sex and Gender Information Value Date Recorded Sex Assigned at Female 12/06/2019 3:36 PM COMMUNITY DEVELOPMENT SPECIALIST Legal Sex Female 5:20 PM CDT Gender Identity Female 12/06/2019 3:36 PM COMMUNITY DEVELOPMENT SPECIALIST Sexual Orientation Straight 12/06/2019 3: 36 PM COMMUNITY DEVELOPMENT SPECIALIST documented as of this encounter Last Filed Vital Signs Vital Sign Reading Time Taken Comments Blood Pressure 130/70 03/26/2016 9:30 AM CDT Pulse 75 03/26/2016 9:30 AM CDT Temperature - - Respiratory Rate - - Oxygen Saturation - - Inhaled Oxygen Concentration - - Weight 102.7 kg (226 lb 6.1 oz) 03/26/2016 9:30 AM CDT Height - - Body Mass Index 41.41 09/24/2015 1:13 PM COMMUNITY DEVELOPMENT SPECIALIST documented in this encounter Progress Notes * Dane Gricel Sullivan, DO - 03/26/2016 9:15 AM CDT History of Present Illness HPI Free Text: several c/o today pt is in tears today Pt is seeing Dr Dash, who wants to do surgery on silva knees also c/o BLE swelling past 3 days also c/o chest pain past few weeks occurs left side of chest, on and off feels like tightness, lasting a few seconds to 5 minutes Assoc with SOB and nausea She quit smoking 2 weeks ago + family hx of CAD, sister with new valve in heart pt has never seen cards before also over the past 1 month, has had leaking urine, urgency, leaks with coughing about the same time, has been having loose stools, some diarrhea has some soft stools, formed as well, so diarrhea is not all the time she thinks she got the flu bug she smokes pot daily, last time she used was 1 week ago she has hx of LBP MRI 2 years ago was told arthritis she used to see [employer], but was fired due to MJ use also wants podiatry referral She has corns on her left feet for several mos has tried numerous OTC methods, but nothing is helping Review of systems General: denies any fevers, chills. Gastrointestinal: as above Genitourinary: as above Cardiovascular: as above Mental Health: pt sees psychiatry for anxiety All other ROS negative unless specified above Physical Exam General: Well-developed, well-nourished, tearful today Eyes: Conjunctiva and lids: no swelling, erythema or discharge, PERRL Oropharynx: normal without erythema, edema, exudate or lesions Neck: Supple without adenopathy, trachea midline Lungs: Clear to auscultation bilaterally without wheezing, rhonchi or crackles. No increase work ofbreathing or signs of respiratory distress Heart: Regular rate and rhythm without murmurs, clicks or bruits. Abdomen: Nondistended, Nontender. No hepatomegaly or splenomegaly noted on examination. Extremities: No clubbing, cyanosis, or edema noted. Pulses 2+. back: no bony TTP, neg SLR, DTR of patellar and achilles 2/4, sensation intact and CR< 2s Neuro: grossly intact. left foot: 1cm well developed corn on left sole of foot, sensation intact except for tip of corn Psych: Normal mood, normal affect EKG NSR Active Problems 1. Anxiety (300.00) (F41.9) 2. Chronic obstructive pulmonary disease (496) (J44.9) 3. Chronic pain (338.29) (G89.29) 4. Cough (786.2) (R05) 5. Diabetes mellitus, type 2 (250.00) (E11.9) 6. Flank pain (789.09) (R10.9) 7. History of CVA (cerebrovascular accident) (V12.54) (Z86.73) 8. Hyperlipidemia (272.4) (E78.5) 9. Hypertension (401.9) (I10) 10. Smoking (305.1) (F17.200) Past Medical History 1. History of arthritis (V13.4) (Z87.39) 2. History of diabetes mellitus (V12.29) (Z86.39) 3. History of hypertension (V12.59) (Z86.79) 4. History of stroke (V12.54) (Z86.73) 5. History of Needs flu shot (V04.81) (Z23) 6. History of URTI (acute upper respiratory infection) (465.9) (J06.9) Surgical History 1. History of Section 2. History of Cholecystectomy 3. History of Tubal Ligation Family History Mother [...] pancreatic cancer (V16.0) (Z80.0) Social History ?? Current every day smoker (305.1) (F17.200) ?? Smoking (305.1) (F17.200) Current Meds 1. Ambien 10 MG Oral Tablet; Therapy: (Recorded:22Apr2015) to Recorded 2. AmLODIPine Besylate 10 MG Oral Tablet; TAKE 1 TABLET DAILY FOR BLOOD PRESSURE; Therapy: 25Sep2015 to (Evaluate:10May2016) Requested for: 20Qek9059; Last Rx:[id number] Ordered 3. Aspirin 325 MG Oral Tablet; Therapy: (Recorded:22Apr2015) to Recorded 4. Ativan TABS; Therapy: (Recorded:23Qqr1069) to Recorded 5. Benzonatate 200 MG Oral Capsule; TAKE 1 CAPSULE 3 TIMES DAILY NEEDED; Therapy: 24Sep2015 to (Evaluate:04Oct2015) Requested for: 24Sep2015; Last Rx:24Sep2015 Ordered 6. Cholestyramine 4 GM/DOSE Oral Powder; MIX 1 SCOOP IN LIQUID AND DRINK TWICE DAILY; Therapy: 25Sep2015 to (Evaluate:76Tye7137) Requested for: 25Sep2015; Last Rx:25Sep2015 Ordered 7. Cyclobenzaprine HCl - 10 MG Oral Tablet; TAKE 1 TABLET QD-BID PRN; Therapy: 27Nov2015 to (Last Rx:27Nov2015) Requested for: 27Nov2015 Ordered 8. Diclofenac Sodium 75 MG Oral Tablet Delayed Release; Therapy: 02May2015 to Recorded 9. Hydrocodone-Acetaminophen 10-325 MG Oral Tablet; TAKE 1 TABLET TID NEEDED FOR PAIN; Last Rx:67Spd6940 Ordered 10. Ibuprofen 600 MG Oral Tablet; Therapy: 51Dpf0497 to Recorded 11. Losartan Potassium 100 MG Oral Tablet; TAKE ONE TABLET BY MOUTH ONCE DAILY; Therapy: 10Mar2016 to (Evaluate:05Dec2016) Requested for: 10Mar2016; Last Rx:10Mar2016 Ordered 12. MetFORMIN HCl - 500 MG Oral Tablet; TAKE ONE TABLET BY MOUTH TWICE DAILY WITH MEALS; Therapy: 10Mar2016 to (Evaluate:42Cvb5301) Requested for: 10Mar2016; Last Rx:10Mar2016 Ordered 13. Montelukast Sodium 10 MG Oral Tablet; TAKE 1 TABLET DAILY Requested for: 12Aug2015; Last Rx:12Aug2015 Ordered 14. Bxdxyhon-Tmnvansnz-KB 3.5-87729-2 Otic Suspension; Therapy: 21May2015 to Recorded 15. Nicotine 21 MG/24HR Transdermal Patch 24 Hour; APPLY ONE PATCH TOPICALLY ONCE DAILY FOR 28 DAYS; Therapy: 37Jdx7021 to (Evaluate:22Jan2016) Requested for: 05Aqa6331; Last Rx:95Vjt2938 Ordered 16. Pravastatin Sodium 40 MG Oral Tablet; TAKE ONE TABLET BY MOUTH ONCE DAILY; Therapy: 26Vpl0414 to (Evaluate:02Gvj6629) Requested for: 12Feb2016; Last Rx:12Feb2016 Ordered 17. PriLOSEC 20 MG Oral Capsule Delayed Release; Therapy: (Recorded:22Apr2015) to Recorded 18. PROzac 40 MG Oral Capsule; Therapy: (Recorded:22Apr2015) to Recorded 19. Qvar 40 MCG/ACT Inhalation Aerosol Solution; INHALE 1 PUFF TWICE DAILY Requested for: 12Aug2015; Last Rx:12Aug2015 Ordered 20. Ventolin HFA 108 (90 Base) MCG/ACT Inhalation Aerosol Solution; INHALE TWO PUFFS BY MOUTH EVERY 4 TO 6 HOURS NEEDED; Therapy: 50Lzu4795 to (Evaluate:22Feb2016) Requested for: 16Dec2015; Last Rx:16Dec2015 Ordered 21. Xanax 1 MG Oral Tablet; Therapy: (Recorded:22Apr2015) to Recorded Allergies 1. Halcion 2. Haldol 3. Penicillins 4. Risperidone and Related Immunizations Influenza --- Series1: 30Jul2015 Vitals Recorded: 26Mar2016 09:30AM Heart Rate 75 Systolic 130 Diastolic 70 Weight 226 lb 6 oz BMI Calculated 41.4 BSA Calculated 2.01 Assessment 1. Chest pain (786.50) (R07.9) 2. Hypertension (401.9) (I10) 3. Diabetes mellitus, type 2 (250.00) (E11.9) 4. Hyperlipidemia (272.4) (E78.5) 5. Limb swelling (729.81) (M79.89) 6. Diarrhea (787.91) (R19.7) 7. Overactive bladder (596.51) (N32.81) 8. Anxiety (300.00) (F41.9) 9. Corns and callosity (700) (L84) Plan Chest pain 1. Cardiology Referral. Outpatient 55F with DM2, HTN, smoking, obese, now with 2 weeks of CP, send to cards for eval and tx, thanks Status: Hold For - Manual Activation Requested for: 26Mar2016 Ordered; For: Chest pain; Ordered By: Dane Sullivan Performed: Due: 09Apr2016 of Visits Requested : 99 Corns and callosity 2. Podiatry Referral. Outpatient 55F with large corn on left sole of foot, pt with DM2, send to podiatry for eval and tx, thanks Status: Hold For - Manual Activation Requested for: 26Mar2016 Ordered; For: Corns and callosity; Ordered By: Dane Sullivan Performed: Due: 20Aer7542 of Visits Requested : 18 Hyperlipidemia 3. *A1C In Office; Status:Active; Requested for:26Mar2016; Perform:In Office; Due:25Apr2016;Ordered; For:Hyperlipidemia; Ordered By:Dane Sullivan; 4. *LIPID Cholestech In Office; Status:Active; Requested for:26Mar2016; Perform:In Office; Due:25Apr2016;Ordered; For:Hyperlipidemia; Ordered By:Dane Sullivan; 5. *Urine dip auto In Office; Status:Hold For - Specimen/Data Collection; Requested for:26Mar2016; Perform:In Office; Due:25Apr2016;Ordered; For:Hyperlipidemia; Ordered By:Dane Sullivan; 6. CBC W Differential; Status:In Progress - Specimen/Data Collected; Done: 26Mar2016 Perform:[facility]; Due:25Apr2016; Last Updated By:Isreal Peter; 03/26/2016 10:15:09 AM;Ordered; For:Hyperlipidemia; Ordered By:Dane Sullivan; 7. Compr Metabolic Prof ( CMP ); Status:In Progress - Specimen/Data Collected; Done: 26Mar2016 Perform:[facility]; Due:25Apr2016; Last Updated By:Isreal Peter; 03/26/2016 10:15:08 AM;Ordered; For:Hyperlipidemia; Ordered By:Dane Sullivan; 8. TSH W Reflex Free T4; Status:In Progress - Specimen/Data Collected; Done: 26Mar2016 Perform:[facility]; Due:25Apr2016; Last Updated By:Isreal Peter; 03/26/2016 10:15:08 AM;Ordered; For:Hyperlipidemia; Ordered By:Dane Sullivan; Hypertension 9. AmLODIPine Besylate 5 MG Oral Tablet; TAKE 1 TABLET DAILY DIRECTED Rx By: Dane Sullivan; Dispense: 90 Days ; #:90 Tablet; Refill: 1; For: Hypertension; ADAM = N; Verified Transmission to [facility]; Last Updated By: Ezra Baez; 03/26/2016 9:57:06AM Unlinked 10. Xpsnlbsq-Egnohbxqo-RX 3.5-51777-2 Otic Suspension Rx By: GANGA BELLA; Dispense: 14 Days ; #:10 SUSP; Refill: 0; ADAM = N; Record; Last Updated By: Jennifer Wayne; 03/26/2016 9:31:34 AM Discussion/Summary CP due to DM2, HTN, HLD, smoking, and family hx, will check EKG, labs no symptoms currently, will benefit from risk stratification with cards referral EKG today read as unremrakable, NSR She has underlying anxiety which can contribut to CP as well, but better to have cards referral to eval for heart issues Pt advised if CP continues or gets worse, go to ER HTN with perceived limb swelling, though no pitting edema on exam BP controlled today, will decrease CCB to 5mg as this can help with any swelling DM2 last A1C was 6.0, will check again today cont meds discussed TLC HLD no check in 6 mos cont meds dispo per labs OAB can be multifactorial She has hx of LBP, but last MRI she states was OA, otherwise normal requesting Hardy notes Clinical exam today unremarkable diarrhea, sporadic, on and off will check TSH can use prn imodium checking CBC for any infection she is requesting disability placard I don't have any ortho notes to base decision on, requesting these notes corn of left foot sending to podiatry given hx of DM2 dispo per labs f/u with cards as above f/u with me in 3 mos Signatures Electronically signed by : Dane Sullivan D.O.; Mar 26 2016 10:26AM COMMUNITY DEVELOPMENT SPECIALIST (Author) documented in this encounter Plan of Treatment Not on file documented as of this encounter Procedures Procedure Name Priority Date/Time Associated Diagnosis Comments URINALYSIS AUTO DIP Routine 03/26/2016 1 1:29 AM CDT CHOLESTECH (LIPID ONLY) Routine 03/26/2016 11:28 AM CDT HEMOGLOBIN, GLYCOSYLATED Routine 03/26/2016 11:28 AM CDT TSH W/REFLEX Routine 03/26/2016 10:15 AM CDT COMPREHENSIVE METABOLIC PANEL Routine 03/26/2016 10:15 AM CDT CBC W/DIFF AUTOMATED Routine 03/26/2016 10:15 AM CDT documented in this encounter Results * URINALYSIS AUTO DIP (03/26/2016 11:29 AM CDT) COLOR (U) Yellow [facility] T O EPIC CONVERSION TRANSPARENCY Clear [facility] P TO EPIC CONVERSION GLUCOSE Negative [facility] T O EPIC CONVERSION BILIRUBIN (U) Negative [facility] UP TO EPIC CONVERSION KETONE (U) Negative [facility] TO EPIC CONVERSION SPECIFIC GRAVITY (U) 1.030 [facility] TO EPIC CONVERSION BLOOD (U) Negative [facility] T O EPIC CONVERSION PH (U) 5.5 5.0 - 7.0 [facility] T O EPIC CONVERSION PROTEIN (ELP) (U) 100 mg/dL-2+ [facility] TO EPIC CONVERSION UROBILINOGEN 0.2 E.U./dL [facility] OUP TO EPIC CONVERSION NITRITES Negative [facility] T O EPIC CONVERSION LEUKOCYTES (U) Negative [facility] OUP TO EPIC CONVERSION 03/26/2016 11:2 9 AM CDT 03/26/2016 11:29 AM CDT Narrative [facility] TO EPIC CONVERSION - 03/26/2016 11:29 AM CDT Result Communication: Call patient with results Dane Sullivan DO URINE ORDERABLES Final Resul t [facility] TO EPIC CONVERSION * HEMOGLOBIN, GLYCOSYLATED (03/26/2016 11:28 AM CDT) HGB A1C 5.9% 4.2 - 6.5 % HbA1C [facility] TO EPIC CONVERSION 03/26/2016 11:2 8 AM CDT 03/26/2016 11:28 AM CDT Narrative [facility] TO EPIC CONVERSION - 03/26/2016 11:28 AM CDT Result Communication: Call patient with results us Dane Sullivan DO LABORATORY Final Result Performing Organization Address [facility] Co de Phone Number [facility] TO EPIC CONVERSION * (ABNORMAL) CHOLESTECH (LIPID ONLY) (03/26/2016 11:28 AM CDT) HDL 43mg/dL 40 - 60 mg/dL [facility] TO EPIC CONVERSION NON HDL CHOLESTEROL 146mg/dL [facility] TO EPIC CONVERSION TRIGLYCERIDES 298mg/dL( A) < 150 mg/dL [facility] TO EPIC CONVERSION LDL (CALCULATED) 87mg/dL [facility] TO EPIC CONVERSION RATIO 4.4 < or = 4.5 [facility] TO EPIC CONVERSION CHOLESTEROL 189 < 200 mg/dL [facility] TO EPIC CONVERSION 03/26/2016 11:2 8 AM CDT 03/26/2016 11:28 AM CDT Narrative [facility] TO EPIC CONVERSION - 03/26/2016 11:28 AM CDT Result Communication: Call patient with results us Dane Sullivan DO LABORATORY Final Result Performing Organization Address City/[facility]/ZIP Co de Phone Number [facility] TO EPIC CONVERSION * (ABNORMAL) COMPREHENSIVE METABOLIC PANEL (03/26/2016 10:15 AM CDT) Pathologist [facility] SODIUM S/P/B 142 136 - 145 mmol/L [facility] TO EPIC CONVERSION POTASSIUM S/P/B 4.1 3.5 - 5.1 mmol/L [facility] TO EPIC CONVERSION CHLORIDE S/P/B 103 98 - 107 mmol/L [facility] TO EPIC CONVERSION CO2 25 22 - 29 mmol/L [facility] TO EPIC CONVERSION ANION GAP 18 8 - 20 [facility] T O EPIC CONVERSION BUN 12 8 - 23 mg/dL [facility] TO EPIC CONVERSION CREATININE S/P/B 0.70 0.60 - 1.10 mg/dL [facility] TO EPIC CONVERSION GFR ESTIMATE >60 >60 mL/min/1 .73m'2 [facility] TO EPIC CONVERSION EGFR AFR. AMER. >60 NOTE: eGFR is not calculated for patients <18 years of age. This is an estimated GFR (CKD EPI) and should not be used for calculating drug doses. >60 mL/min/1 .73m'2 [facility] TO EPIC CONVERSION GLUCOSE 135(H) 70 - 99 mg/dL [facility] TO EPIC CONVERSION CALCIUM S/P/B 9.3 8.6 - 10.2 mg/dL [facility] TO EPIC CONVERSION BILIRUBIN TOTAL S/P/B 0.3 0.2 - 1.2 mg/dL [facility] TO EPIC CONVERSION AST 18 0 - 32 IU/L [facility] TO EPIC CONVERSION ALT 32 0 - 33 IU/L [facility] TO EPIC CONVERSION ALKALINE PHOSPHATASE S/P/B 132(H) 35 - 104 IU/L [facility] TO EPIC CONVERSION TOTAL PROTEIN S/P/B 7.4 6.4 - 8.3 g/dL [facility] TO EPIC CONVERSION ALBUMIN S/P/B 4.5 3.5 - 5.2 g/dL [facility] TO EPIC CONVERSION GLOBULIN 2.9 2.3 - 3.6 g/dL [facility] TO EPIC CONVERSION A/G RATIO 1.6 1.0 - 2.0 [facility] TO EPIC CONVERSION 03/26/2016 10:1 5 AM CDT 03/26/2016 10:15 AM CDT Narrative [facility] TO EPIC CONVERSION - 03/26/2016 11:08 PM CDT Result Communication: Call patient with results Dane Sullivan DO LABORATORY Final Result [facility] TO EPIC CONVERSION * TSH W/REFLEX (SNS) (03/26/2016 10:15 AM CDT) TSH 1.81 0.27 - 4.20 mIU/mL [facility] TO EPIC CONVERSION Comment:Result Comment: FREE T4 NOT INDICATED 03/26/2016 10:1 5 AM CDT 03/26/2016 10:15 AM CDT Narrative [facility] TO EPIC CONVERSION - 03/26/2016 11:08 PM CDT Result Communication: Call patient with results Dane Sullivan DO LABORATORY Final Result [facility] TO EPIC CONVERSION * (ABNORMAL) CBC W/DIFF AUTOMATED (03/26/2016 10:15 AM CDT) WBC 10.1 4.8 - 10.8 X10'3/uL [facility] TO EPIC CONVERSION RBC 5.14 4.20 - 5.40 X10'6/uL [facility] TO EPIC CONVERSION HGB 14.4 12.0 - 16.0 g/dL [facility] TO EPIC CONVERSION HCT 45.4 38.0 - 48.0 % [facility] TO EPIC CONVERSION MCV 88.3 81.0 - 99.0 fL [facility] TO EPIC CONVERSION MCH 28.0 27.0 - 31.0 pg [facility] TO EPIC CONVERSION MCHC 31.7(L) 32.0 - 36.0 g/dL [facility] TO EPIC CONVERSION RDW 13.8 11.5 - 14.5 % [facility] TO EPIC CONVERSION PLT 236 130 - 400 X10'3/uL [facility] TO EPIC CONVERSION GLUCOSE 10.3 9.3 - 12.2 fL [facility] TO EPIC CONVERSION BASOPHILS % 0.5 0.0 - 1.0 % [facility] TO EPIC CONVERSION EOSINOPHILS % 2.4 1.0 - 3.0 % [facility] TO EPIC CONVERSION NEUTROPHILS % 69.0(H) 43.0 - 65.0 % [facility] TO EPIC CONVERSION LYMPHOCYTES % 21.9 20.0 - 46.0 % [facility] TO EPIC CONVERSION MONOCYTES % 5.7 5.0 - 12.0 % [facility] TO EPIC CONVERSION IMMATURE GRANS % 0.5 0.0 - 1.0 % [facility] TO EPIC CONVERSION DIFFERENTIAL TYPE AUTOMATED [facility] TO [facility]IC CONVERSION 03/26/2016 10:1 5 AM CDT 03/26/2016 10:15 AM CDT Narrative [facility] TO EPIC CONVERSION - 03/26/2016 11:02 PM CDT Result Communication: Call patient with results Dane Sullivan DO LABORATORY Final Result [facility] TO EPIC CONVERSION documented in this encounter Visit Diagnoses Not on filedocumented in this encounter Care Teams Radiology Transporter Relationship Specialty Start Date End Date Dane Sullivan DO PCP - General FAMILY PRACTICE 05/15/16 02/11/17 Deisi Andrews MD [address] [place] [address] PCP - General FAMILY PRACTICE 02/13/17 03/10/17 Heber Adorno MD PCP - General 03/11/17 06/14/17 Dane Sullivan DO PCP - General 05/04/16 05/14/16 Dane Sullivan DO PCP - General 04/17/16 05/03/16 Dane Sullivan DO PCP - General 03/26/16 04/16/16 Deisi Andrews MD [address] [place] [address] PCP - General FAMILY PRACTICE 06/15/17 10/14/19 Asa Mcnamara MD [facility]. [facility] [address] [place], [place] [address] [employer] CARDIOVASCULAR DISEASE 05/15/16 documented as of this encounter
--- OUTSIDE RECORDS SUMMARY | 2024-11-12 04:49 | XMS_ITS | Encounter Summary ---
Author Organization [facility] Address [facility] [facility] [place] [address] [place] [address] Care Team Providers Care Surfacer Operator Name Role Phone SullivanDane rowley Gricel FLORES Primary Care Provider [phone] Asa Mcnamara MD Unavailable [phone] Reason for Visit * Reason Onset Date Comments Medication 07/02/2016 Encounter Details Date Type Department Care Team (Late st Contact Info) Description 07/02/2016 Telephone [facility] AT [address] [address] Karen Barboza, coating technician Social History Tobacco Use Types Packs/Day Years Used Date Smoking Tobacco: Every Day Cigarettes Smokeless Tobacco: Never Alcohol Use Standard Drinks/Week Comments No 0 (1 standard drink = 0.6 oz pur e alcohol) Comments Unknown Sex and Gender Information Value Date Recorded Sex Assigned at Female 12/06/2019 3:36 PM STOCK TRADER Legal Sex Female 5:20 PM CDT Gender Identity Female 12/06/2019 3:36 PM STOCK TRADER Sexual Orientation Straight 12/06/2019 3: 36 PM STOCK TRADER 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 Mcnamara yesterday, states she was started on plavix post procedure, states she cannot remember what Dr. Mcnamara said regarding if she should continue the cilostazol. Message to Dr. Mcnamara. Rosy Barboza R.N. Called to let pt know that I will talk to Dr. Mcnamara re. The above tomorrow and will let her know,pt verbalizes understanding and has no further questions, states this will be fine. Rosy Barboza R.N. 07/03/[address] Mcnamara, pt notified to stay on cilostazol for now and keep scheduled f/u appt, pt verbalizes understanding and has no further questions. Rosy Barboza R.N. documented in this encounter Plan of Treatment Not on file documented as of this encounter Visit Diagnoses Not on filedocumented in this encounter Care Teams Surfacer Operator Relationship Specialty Start Date End Date Dane Sullivan DO PCP - General FAMILY PRACTICE 05/15/16 02/11/[address] [facility] [address] [place] [address] [place] [employer] Operator CARDIOVASCULAR DISEASE 05/15/16 documented as of this encounter
--- OUTSIDE RECORDS SUMMARY | 2024-11-12 04:49 | XMS_ITS | Encounter Summary ---
Author Organization [facility] Address Formerly [facility], [facility]6 [facility]. [place], [place] [address] [place] [address] Care Team Providers Care Field Contact Person Name Role Phone Dane Sullivan DO Primary Care Provider + [phone] Asa Mcnamara MD Unavailable [phone] Deisi Andrews MD Primary Care Provider [phone] Md Generic Vivi [facility] Primary Care Provider Unavailable Dane Sullivan DO Primary Care Provider + [phone] Dane Sullivan DO Primary Care Provider + [phone] Dane Sullivan DO Primary Care Provider + [phone] Dane Sullivan DO Primary Care Provider + [phone] Deisi Andrews MD Primary Care Provider [phone] Encounter Details Date Type Department Care Team (Latest Contact Info) Description 11/27/2015 Abstract [facility] Social History Tobacco Use Types Packs/Day Years Used Date Smoking Tobacco: Never Assessed Comments Unknown Sex and Gender Information Value Date Recorded Sex Assigned at Female 12/06/2019 3:36 PM DOUGH CUTTING 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 Legal Sex Female 5:20 PM CDT Gender Identity Female 12/06/2019 3:36 PM DOUGH CUTTING 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 Sexual Orientation Straight 12/06/2019 3: 36 PM DOUGH CUTTING 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 documented as of this encounter Progress Notes * Generic Conversion MD Kyree - 11/27/2015 9:05 AM CST Message Recorded as Task Date: 11/25/2015 10:49 AM, Created By: Mady Olivares Task Name: Follow Up Assigned To: [facility]-Nursing Team Regarding Patient: Rody Zaidi, Status: In Progress Comment: Mady Olivares - 25 Nov 2015 10:49 AM TASK CREATED Caller: Self; General Medical Question; Pt. called stating that she is no longer seeing Pain man. [facility] and she is wanting to know if she could get her Flexeril 10 MG 1 tab twice daily filled by you? [facility] in [place] Jennifer Wayne - 25 Nov 2015 12:49 PM TASK REPLIED TO: Previously Assigned To Dane Sullivan Anthony - 25 Nov 2015 7:58 PM TASK REPLIED TO: Previously Assigned To Jennifer Wayne no cyclobenzaprin not on CPS notes and not typically bid dosing Jennifer Wayne - 26 Nov 2015 7:09 AM TASK REASSIGNED: Previously Assigned To Jennifer Wayne Kimberly - 26 Nov 2015 9:34 AM TASK EDITED Starr Melendez - 26 Nov 2015 3:12 PM TASK REASSIGNED: Previously Assigned To [facility]-Nursing Team Left message on voicemail to call back Starr Melendez - 26 Nov 2015 3:12 PM TASK EDITED Dane Sullivan - 26 Nov 2015 3:27 PM TASK REASSIGNED: Previously Assigned To [facility]-Nursing Team disregard previous message ok to fill Starr Melendez - 26 Nov 2015 3:29 PM TASK REASSIGNED: Previously Assigned To Starr Melendez Message: Informed pt of this, rx sent to [facility]. /dont Plan 1. Cyclobenzaprine HCl - 10 MG Oral Tablet; TAKE 1 TABLET QD-BID PRN Rx By: Dane Sullivan; Dispense: 0 Days ; #:60 Tablet; Refill: 2; For: Chronic pain; ADAM = N; Verified Transmission to [facility]; Last Updated By: Nestor [employer]; 11/27/2015 9:09:40 AM Signatures Electronically signed by : Starr Melendez R.N.; Nov 27 2015 9:12AM DOUGH CUTTING 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 (Author) documented in this encounter Plan of Treatment Not on file documented as of this encounter Visit Diagnoses Not on filedocumented in this encounter Care Teams Field Contact Person Relationship Specialty Start Date End Date Dane Sullivan DO PCP - General FAMILY PRACTICE 05/15/16 02/11/17 Deisi Andrews MD [address] [place] [id number] PCP - General FAMILY PRACTICE 02/13/17 03/10/17 Heber Huynh MD PCP - General 03/11/17 06/14/17 Dane Sullivan DO PCP - General 05/04/16 05/14/16 Dane Sullivan DO PCP - General 04/17/16 05/03/16 Dane Sullivan DO PCP - General 03/26/16 04/16/16 Dane Sullivan DO PCP - General 11/12/15 03/25/16 Deisi Andrews MD [address] [place] [address] PCP - General FAMILY PRACTICE 06/15/17 10/14/19 Asa Mcnamara MD [address] [address] Stephen Ironing Pleater CARDIOVASCULAR DISEASE 05/15/16 documented as of this encounter
--- OUTSIDE RECORDS SUMMARY | 2024-11-12 04:49 | XMS_ITS | Encounter Summary ---
Author Organization [facility] Address [address] [facility]. [place], [place] [address] [place] [address] Care Team Providers Care Drop Wire Stringer Name Role Phone Dane Sullivan DO Primary Care Provider + [phone] Asa Mcnamara MD Unavailable [phone] Deisi Andrews MD Primary Care Provider [phone] Heber Adorno MD Primary Care Provider Unavailable Deisi Andrews MD Primary Care Provider [phone] Encounter Details Date Type Department Care Team (Late st Contact Info) Description 07/14/2016 Abstract [facility] Family Medicine - [address] [phone] Dane Sullivan DO [address] [phone] Social History Tobacco Use Types Packs/Day Years Used Date Smoking Tobacco: Every Day Cigarettes Smokeless Tobacco: Never Alcohol Use Standard Drinks/Week Comments No 0 (1 standard drink = 0.6 oz pur e alcohol) Comments Unknown Sex and Gender Information Value Date Recorded Sex Assigned at Female 12/06/2019 3:36 PM INCINERATOR ATTENDANT Legal Sex Female 5:20 PM CDT Gender Identity Female 12/06/2019 3:36 PM INCINERATOR ATTENDANT Sexual Orientation Straight 12/06/2019 3: 36 PM INCINERATOR ATTENDANT 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 Not on file Not on file documented as of this encounter Last Filed Vital Signs Vital Sign Reading Time Taken Comments Blood Pressure 147/85 07/14/2016 9:53 AM CDT Pulse 113 07/14/2016 9:53 AM CDT Temperature - - Respiratory Rate - - Oxygen Saturation - - Inhaled Oxygen Concentration - - Weight 99.8 kg (220 lb) 07/14/2016 9:53 AM CDT Height - - Body Mass Index 38.97 05/20/2016 12:46 PM CDT documented in this encounter Progress Notes * Dane Monsalve Sullivan, DO - 07/14/2016 10:00 AM CDT History of Present Illness several c/o today On Wednesday pt slipped on floor, and fell onto left arm Went to [place] and was xrays showed fracture of both ulnar and radius Was placed in ulnar gutter splint and will be getting surgery tomorrow She has appt for pre-op today recently had seen Dr Mcnamara for stenting of silva iliac arteries is to be on dual antiplatelate therapy for next 1-3 mos since then, leg feels much better is on plavix now and is toelrating her meds She has u/s pending for Jul 29 with f/u Jul 30 she will call cards today to let them know about plavix and upcoming surgery LBP had VINNY by Dr Norton recently and this has helped her back greatly Silva knee pain had silva knee injections by Dr Norton and this has helped her knees greatly She has hx of anxiety she is on xanax 1mg po 4-5 times per day Her Pyschiatrist Dr Concepcion is no longer practicing and no meds or refills or alternative plan in place for the patient She is on her last day of xanax today Review of systems General: denies any fevers, chills. Gastrointestinal: Patient denies any nausea, vomiting, diarrhea or constipation Cardiovascular: Patient denies Chest pain, shortness of breath. Physical Exam General: Well-developed, well-nourished Eyes: Conjunctiva and lids: no swelling, erythema or discharge Oropharynx: normal without erythema, edema, exudate or lesions Neck: Supple without adenopathy, trachea midline Lungs: Clear to auscultation bilaterally without wheezing, rhonchi or crackles. No increase work ofbreathing or signs of respiratory distress Heart: Regular rate and rhythm without murmurs, clicks or bruits. Abdomen: Nondistended, Nontender. No hepatomegaly or splenomegaly noted on examination. Extremities: left arm in splint, BLE no c/c/e Neuro: grossly intact. Psych: Normal mood, normal affect Active Problems 1. Anxiety (300.00) (F41.9) 2. Chest pain (786.50) (R07.9) 3. Chronic obstructive pulmonary disease (496) (J44.9) 4. Chronic pain (338.29) (G89.29) 5. Corns and callosity (700) (L84) 6. Cough (786.2) (R05) 7. Diabetes mellitus, type 2 (250.00) (E11.9) 8. Diarrhea (787.91) (R19.7) 9. Enteritis (558.9) (K52.9) 10. Flank pain (789.09) (R10.9) 11. History of CVA (cerebrovascular accident) (V12.54) (Z86.73) 12. Hyperlipidemia (272.4) (E78.5) 13. Hypertension (401.9) (I10) 14. Limb swelling (729.81) (M79.89) 15. Nausea with vomiting (787.01) (R11.2) 16. Overactive bladder (596.51) (N32.81) 17. Pes cavus (736.73) (M21.6X9) 18. Plantar warts (078.12) (B07.0) 19. Porokeratosis (757.39) (Q82.8) 20. Proteinuria (791.0) (R80.9) 21. Smoking (305.1) (F17.200) 22. Soft tissue mass (729.90) (M79.9) Past Medical [...] EVERY 4 TO 6 HOURS NEEDED; Therapy: 35Ykq1607 to (Last Rx:24Daa3796) Requested for: 32Xxe1993 Ordered 2. Joleen 180 MG TABS; Therapy: (Recorded:27Sgk3832) to Recorded 3. Ambien 5 MG Oral Tablet; Therapy: (Recorded:10Uxm7707) to Recorded 4. AmLODIPine Besylate 5 MG Oral Tablet; TAKE 1 TABLET DAILY DIRECTED; Therapy: 25Sep2015 to (Evaluate:22Sep2016) Requested for: 49Vjy8006; Last Rx:29Lxg6382 Ordered 5. Aspirin Low Dose TABS; Therapy: (Recorded:32Bcf8379) to Recorded 6. Cilostazol 100 MG Oral Tablet; Therapy: (Recorded:46Xbg9121) to Recorded 7. Cyclobenzaprine HCl - 10 MG Oral Tablet; TAKE ONE TABLET BY MOUTH ONCE TO TWICE DAILY NEEDED; Therapy: 27Nov2015 to (Evaluate:89Xgl3127) Requested for: 16Apr2016; Last Rx:16Apr2016 Ordered 8. FLUoxetine HCl - 20 MG Oral Capsule; TAKE 1 CAPSULE DAILY; Therapy: (Recorded:20Rcs3428) to Recorded 9. Isosorbide Mononitrate ER 30 MG Oral Tablet Extended Release 24 Hour; Therapy: (Recorded:33Cjo2592) to Recorded 10. Losartan Potassium 100 MG Oral Tablet; TAKE ONE TABLET BY MOUTH ONCE DAILY; Therapy: 10Mar2016 to (Evaluate:05Dec2016) Requested for: 01Apr2016; Last Rx:10Mar2016 Ordered 11. MetFORMIN HCl - 500 MG Oral Tablet; TAKE ONE TABLET BY MOUTH TWICE DAILY WITH MEALS; Therapy: 10Mar2016 to (Evaluate:29Esz6920) Requested for: 01Apr2016; Last Rx:10Mar2016 Ordered 12. Metoprolol Succinate ER 25 MG Oral Tablet Extended Release 24 Hour; Therapy: (Recorded:83Vuu7808) to Recorded 13. Montelukast Sodium 10 MG Oral Tablet; TAKE 1 TABLET DAILY Requested for: 01Apr2016; Last Rx:96Tct9386 Ordered 14. Nitrostat 0.4 MG Sublingual Tablet Sublingual; Therapy: (Recorded:35Smh4128) to Recorded 15. Percocet 5-325 MG Oral Tablet; Therapy: (Recorded:09Uxs5962) to Recorded 16. Pravastatin Sodium 40 MG Oral Tablet; TAKE ONE TABLET BY MOUTH ONCE DAILY; Therapy: 16May2015 to (Evaluate:20Snw6447) Requested for: 01Apr2016; Last Rx:12Feb2016 Ordered 17. PriLOSEC 20 MG Oral Capsule Delayed Release; Therapy: (Recorded:84Wav5969) to Recorded 18. Qvar 40 MCG/ACT Inhalation Aerosol Solution; INHALE ONE PUFF BY MOUTH TWICE DAILY; Therapy: 27Mar2016 to (Evaluate:23Sep2016) Requested for: 01Apr2016; Last Rx:27Mar2016 Ordered 19. Ventolin HFA 108 (90 Base) MCG/ACT Inhalation Aerosol Solution; INHALE TWO PUFFS BY MOUTH EVERY 4 TO 6 HOURS NEEDED; Therapy: 07Did6272 to (Evaluate:22Feb2016) Requested for: 01Apr2016; Last Rx:45Rej6705 Ordered 20. Xanax 1 MG Oral Tablet; Therapy: (Recorded:66Dnh5119) to Recorded Allergies 1. Halcion 2. Haldol 3. Penicillins 4. Risperidone and Related Immunizations Influenza --- Series1: 45Qus4016 Vitals Recorded: 79Tcb0844 09:53AM Heart Rate 113 Systolic 147 Diastolic 85 Weight 220 lb BMI Calculated 38.97 BSA Calculated 2.01 Assessment 1. Anxiety (300.00) (F41.9) 2. Antiplatelet or antithrombotic long-term use (V58.63) (Z79.02) 3. Chronic pain (338.29) (G89.29) 4. Hypertension (401.9) (I10) 5. Arm fracture, left (818.0) (S42.302A) Plan Anxiety 1. ClonazePAM 1 MG Oral Tablet; TAKE 1 TABLET TWICE DAILY NEEDED Rx By: Dane Sullivan; Dispense: 30 Days ; #:60 Tablet; Refill: 0; For: Anxiety; ADAM = N; Print Rx 2. FLUoxetine HCl - 20 MG Oral Capsule; TAKE 1 CAPSULE DAILY Rx By: Dane Sullivan; Dispense: 90 Days ; #:90 Capsule; Refill: 1; For: Anxiety; ADAM = N; Verified Transmission to [facility]; Last Updated By: Ezra Baez; 07/14/2016 10:11:04 AM Discussion/Summary Pt has pre-op today I advised her to call her cardiology to determine if plavix is to continue Due to her recent surgery, I suspect she will need to cont plavix and to continue unless stated otherwise by cards pt states she will call them today for this HTN BP elevated today, but arm is in cast and she has fractures in arm ok to cont to monitor arm fracture in splint and will be seeing pre-op after this visit today she will f/u with ortho as instructed anxiety [place] the [place] xanax end of May She is agreeable to changing over to clonazepam 1mg po bid she will let know if symptoms worsens her pain in her joints is much better now that she has had numerous injections f/u prn t Signatures Electronically signed by : Dane Sullivan D.O.; Jul 14 2016 10:20AM INCINERATOR ATTENDANT (Author) documented in this encounter Plan of Treatment Not on file documented as of this encounter Visit Diagnoses Not on filedocumented in this encounter Care Teams Drop Wire Stringer Relationship Specialty Start Date End Date Dane Sullivan DO PCP - General FAMILY PRACTICE 05/15/16 02/11/17 Deisi Andrews MD [address] [place] [address] PCP - General FAMILY PRACTICE 02/13/17 03/10/17 Heber Adorno MD PCP - General 03/11/17 06/14/17 Deisi Andrews MD [address] [place] [address] PCP - General FAMILY PRACTICE 06/15/17 10/14/19 Asa Mcnamara MD [facility] [address] [place] [address] Stephen Research Attorney CARDIOVASCULAR DISEASE 05/15/16 documented as of this encounter
--- OUTSIDE RECORDS SUMMARY | 2024-11-12 04:49 | XMS_ITS | Encounter Summary ---
Author Organization [facility] Address [facility] [place], [place] [address] [place] [address] Care Team Providers Care House Carpenter Name Role Phone Dane Sullivan DO Primary Care Provider + [phone] Asa Mcnamara MD Unavailable [phone] Deisi Andrews MD Primary Care Provider [phone] Heber Adorno MD Primary Care Provider Unavailable Deisi Andrews MD Primary Care Provider [phone] Encounter Details Date Type Department Care Team (Latest Contact Info) Description 06/30/2016 Abstract [facility] Heber Adorno MD Social History Tobacco Use Types Packs/Day Years Used Date Smoking Tobacco: Every Day Cigarettes Smokeless Tobacco: Never Alcohol Use Standard Drinks/Week Comments No 0 (1 standard drink = 0.6 oz pur e alcohol) Comments Unknown Sex and Gender Information Value Date Recorded Sex Assigned at Female 12/06/2019 3:36 PM INSTRUCTOR TAP DANCING Legal Sex Female 5:20 PM CDT Gender Identity Female 12/06/2019 3:36 PM INSTRUCTOR TAP DANCING Sexual Orientation Straight 12/06/2019 3: 36 PM INSTRUCTOR TAP DANCING 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 [address] Patient: RODY CRUZ [facility] Rec#: [id number] Birthdate: 1960 Admit/Svce Date: 06/30/2016 Disch Date: Attending Md: ELI HAY MD CHART DOCUMENT PREOPERATIVE DIAGNOSIS: Lumbar radiculopathy. POSTOPERATIVE DIAGNOSIS: Lumbar radiculopathy. SURGERY PERFORMED: Right L4, L5, and S1 lumbar transforaminal epidural steroid injection under fluoroscopy. DATE: 06/30/2016 SURGEON: ELI HAY MD BUSINESS MACHINES TEACHER: LEVELS: Right L4, L5 and S1. ANESTHESIA: 10 mg of p.o. Valium. CHIEF COMPLAINT: Low back and right-sided pain. Blood sugar is 124. Patient has had her Pletal for 3 days. Patient is not diabetic. Patient has been NPO. No allergies to contrast. No anticoagulant. Risks, benefits, alternate treatments discussed. Written consent obtained. No IV placed. Patient taken to procedure room placed in prone position. Pillow under abdomen to reduce lumbar lordosis. Sterile prep and drape of lumbosacral spine performed. ASA standard monitors applied. Valium sedation given. PROCEDURE: Vertebral bodies were squared. Skin and subcutaneous tissues were anesthetized with 1% lidocaine. 5-inch 22-gauge Chiba needles with bent tips were used. C arm was moved to the oblique x ray view. Target for L4, L5, and S1 nerve root is the 6 o'clock position of the pedicle shadow in the oblique x ray view at the level of L4, L5, and S1 on the right side. Appropriate needle tip position was confirmed in the AP, oblique and lateral views. Needle placement was confirmed under fluoroscopy. After negative aspiration, 5 mL of contrast split between the above mentioned levels was injected in the lateral view confirming spread in the anterior epidural space. Negative aspiration prior to 5 mL of contrast injected in the AP view confirming spread along the L4, L5, and S1 nerve roots along with epidural spread. No intravascular or intrathecal uptake noted. Negative aspiration prior to injection of 40 mg Depo-Medrol and 2 mL of 0.25% bupivacaine injected per level. [place] removed. No complications. POST PROCEDURE: Patient tolerated procedure well and observed for approximately 20-30 minutes prior to discharge. Discharged in stable condition with appropriate post procedure instructions. Patient will be called over the next few days for follow up. There were no complications. Electronically Signed By: ELI HAY M.D. 07/01/2016 07:51 A ELI HAY M.D. A #[id number] P/ma cc: Michelle EPSTEIN D.O. documented in this encounter Plan of Treatment Not on file documented as of this encounter Visit Diagnoses Not on filedocumented in this encounter Care Teams House Carpenter Relationship Specialty Start Date End Date Dane Sullivan DO PCP - General FAMILY PRACTICE 05/15/16 02/11/17 Deisi Andrews MD [address] [place] [address] PCP - General FAMILY PRACTICE 02/13/17 03/10/17 Heber Adorno MD PCP - General 03/11/17 06/14/17 Deisi Andrews MD [address] [place] [address] PCP - General FAMILY PRACTICE 06/15/17 10/14/19 Asa Mcnamara MD [facility] [address] [place] [address] [place] Linoleum Layer CARDIOVASCULAR DISEASE 05/15/16 documented as of this encounter
--- OUTSIDE RECORDS SUMMARY | 2024-11-12 04:49 | XMS_ITS | Encounter Summary ---
Author Organization [facility] Address [facility]6 [facility]. [place], [place] [address] [place] [address] Care Team Providers Care Wellness Director Name Role Phone Dane Sullivan DO Primary Care Provider + [phone] Dane Sullivan DO Primary Care Provider + [phone] Encounter Details Date Type Department Care Team (Late st Contact Info) Description 03/26/2016 Abstract [facility] [address] [place] [address] , Heber Trinidad MD Social History Tobacco Use Types Packs/Day Years Used Date Smoking Tobacco: Never Assessed Comments Unknown Sex and Gender Information Value Date Recorded Sex Assigned at Female 12/06/2019 3:36 PM ACTUARIAL ANALYST Legal Sex Female 5:20 PM CDT Gender Identity Female 12/06/2019 3:36 PM ACTUARIAL ANALYST Sexual Orientation Straight 12/06/2019 3: 36 PM ACTUARIAL ANALYST documented as of this encounter Plan of Treatment Not on file documented as of this encounter Procedures Procedure Name Priority Date/Time Associated Diagnosis Comments CBC,CONVERSION Routine 03/26/2016 12:00 AM CDT LIVER PROFILE Routine 03/26/2016 12:00 AM CDT LIPID PANEL Routine 03/26/2016 12:00 AM CDT THYROID PANEL Routine 03/26/2016 12:00 AM CDT COMPREHENSIVE METABOLIC PANEL Routine 03/26/2016 12:00 AM CDT documented in this encounter Results * LIPID PANEL (03/26/2016 12:00 AM CDT) TRIGLYCERIDES 298 0 - 150 mg/dl MEDINFORMATIX TO EPIC CONVERSION CHOLESTEROL 189 0 - 200 mg/dl MEDINFORMATIX TO EPIC CONVERSION HDL 43 40 - 59 mg/dl MEDINFORMATIX TO EPIC CONVERSION LDL CONVERSION 87 0 - 100 mg/dl MEDINFORMATIX TO EPIC CONVERSION NON HDL CHOLESTEROL 146 0 - 130 mg/dL MEDINFORMATIX TO EPIC CONVERSION 03/26/2016 03/26/2016 us Generic Conversion Md [facility] Final R esult MEDINFORMATIX TO EPIC CONVERSION * COMPREHENSIVE METABOLIC PANEL (03/26/2016 12:00 AM CDT) SODIUM S/P/B 142 135 - 146 meq/l MEDINFORMATIX TO EPIC CONVERSION POTASSIUM S/P/B 4.1 3.5 - 5.3 meq/l MEDINFORMATIX TO EPIC CONVERSION CHLORIDE S/P/B 103 95 - 108 meq/l MEDINFORMATIX TO EPIC CONVERSION CO2 25 17 - 31 meq/l MEDINFORMATIX TO EPIC CONVERSION GLUCOSE 135 70 - 125 mg/dl MEDINFORMATIX TO EPIC CONVERSION BUN 12 7 - 25 mg/dl MEDINFORMATIX TO EPIC CONVERSION CREATININE S/P/B 0.70 0.5 - 1.4 mg/dl MEDINFORMATIX TO EPIC CONVERSION CALCIUM S/P/B 9.3 8.5 - 10.3 mg/dl MEDINFORMATIX TO EPIC CONVERSION BILIRUBIN TOTAL S/P/B 0.3 0.0 - 1.3 mg/dl MEDINFORMATIX TO EPIC CONVERSION ALK PHOS 132 20 - 125 u/l MEDINFORMATIX TO EPIC CONVERSION AST 18 0 - 42 u/l MEDINFORM ATIX TO EPIC CONVERSION ALT 32 0 - 48 u/l MEDINFORM ATIX TO EPIC CONVERSION TOTAL PROTEIN S/P/B 7.4 6.0 - 8.5 g/dl MEDINFORMATIX TO EPIC CONVERSION ALBUMIN S/P/B 4.5 3.2 - 5.0 G/DL MEDINFORMATIX TO EPIC CONVERSION EGFR NON-AFR. AMER. >60 >60 ml/min/1.7 3 sq.m MEDINFORMATIX TO EPIC CONVERSION 03/26/2016 03/26/2016 us Generic Conversion Md [facility] Final R esult MEDINFORMATIX TO EPIC CONVERSION * LIVER PROFILE (03/26/2016 12:00 AM CDT) ALT 32 0 - 48 u/l MEDINFORM ATIX TO EPIC CONVERSION AST 18 0 - 42 u/l MEDINFORM ATIX TO EPIC CONVERSION GLOBULIN 2.9 2.3 - 3.6 g/dL MEDINFORMATIX TO EPIC CONVERSION 03/26/2016 03/26/2016 us Generic Conversion Md [facility] Final R [employer] Performing Organization Address City/[facility]/ZIP Co de Phone Number MEDINFORMATIX TO EPIC CONVERSION * THYROID PANEL (03/26/2016 12:00 AM CDT) TSH 1.81 0.4 - 5.5 micro IU/ml MEDINFORMATIX TO EPIC CONVERSION 03/26/2016 03/26/2016 us Generic Conversion Md [facility] Final R esult MEDINFORMATIX TO EPIC CONVERSION * CBC,CONVERSION (03/26/2016 12:00 AM CDT) WBC 10.1 3.8 - 10.8 thous/mcl MEDINFORMATIX TO EPIC CONVERSION HGB 14.4 12.0 - 15.6 g/dl MEDINFORMATIX TO EPIC CONVERSION HCT 45.4 35.0 - 46.0 % MEDINFORMATIX TO EPIC CONVERSION PLATELET COUNT 236 130 - 400 thous/mcl MEDINFORMATIX TO EPIC CONVERSION 03/26/2016 03/26/2016 us Generic Conversion Md [facility] Final R esult MEDINFORMATIX TO EPIC CONVERSION documented in this encounter Visit Diagnoses Not on filedocumented in this encounter Care Teams Wellness Director Relationship Specialty Start Date End Date Dane Sullivan DO PCP - General 04/17/16 05/03/16 Dane Sullivan DO PCP - General 03/26/16 04/16/16 documented as of this encounter
--- OUTSIDE RECORDS SUMMARY | 2024-11-12 04:49 | XMS_ITS | Encounter Summary ---
Author Organization [facility] Address [facility] [place] [address] [place] [address] Care Team Providers Care Wire Preparation Worker Name Role Phone Dane Sullivan DO Primary Care Provider [phone] Asa Mcnamara MD Unavailable [phone] Encounter Details Date Type Department Care Team (Late st Contact Info) Description 06/04/2016 Orders Only [facility] [address] [id number] Karen Gonzalez, [facility] Social History Tobacco Use Types Packs/Day Years Used Date Smoking Tobacco: Every Day Cigarettes Smokeless Tobacco: Never Alcohol Use Standard Drinks/Week Comments No 0 (1 standard drink = 0.6 oz pur e alcohol) Comments Unknown Sex and Gender Information Value Date Recorded Sex Assigned at Female 12/06/2019 3:36 PM LOCK PLATER Legal Sex Female 5:20 PM CDT Gender Identity Female 12/06/2019 3:36 PM LOCK PLATER Sexual Orientation Straight 12/06/2019 3: 36 PM LOCK PLATER 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
--- OUTSIDE RECORDS SUMMARY | 2024-11-12 04:49 | XMS_ITS | Encounter Summary ---
Author Organization [facility] Address [address] [facility]. [place], [place] [address] [place] [address] Care Team Providers Care Medical Screener Name Role Phone Dane Sullivan DO Primary Care Provider + [phone] Asa Mcnamara MD Unavailable [phone] Deisi Andrews MD Primary Care Provider [phone] Heber Adorno MD Primary Care Provider Unavailable Dane Sullivan DO Primary Care Provider + [phone] Dane Sullivan DO Primary Care Provider + [phone] Deisi Andrews MD Primary Care Provider [phone] Encounter Details Date Type Department Care Team (Latest Contact Info) Description 04/30/2016 Abstract [facility] Medical [facility] Social History Tobacco Use Types Packs/Day Years Used Date Smoking Tobacco: Never Assessed Comments Unknown Sex and Gender Information Value Date Recorded Sex Assigned at Female 12/06/2019 3:36 PM MANAGER NUCLEAR Legal Sex Female 5:20 PM CDT Gender Identity Female 12/06/2019 3:36 PM MANAGER NUCLEAR Sexual Orientation Straight 12/06/2019 3: 36 PM MANAGER NUCLEAR documented as of this encounter Plan of Treatment Not on file documented as of this encounter Visit Diagnoses Not on filedocumented in this encounter Care Teams Medical Screener Relationship Specialty Start Date End Date Dane Sullivan DO PCP - General FAMILY PRACTICE 05/15/16 02/11/17 Deisi Andrews MD [address] [place] [address] PCP - General FAMILY PRACTICE 02/13/17 03/10/17 Heber Adorno MD PCP - General 03/11/17 06/14/17 Dane Sullivan DO PCP - General 05/04/16 05/14/16 Dane Sullivan DO PCP - General 04/17/16 05/03/16 Deisi Andrews MD [address] [place] [address] [place] [address] PCP - General FAMILY PRACTICE 06/15/17 10/14/19 Asa Mcnamara MD [facility] [address] [place] [address] [place] Electric Blanket Packer CARDIOVASCULAR DISEASE 05/15/16 documented as of this encounter
--- OUTSIDE RECORDS SUMMARY | 2024-11-12 04:49 | XMS_ITS | Encounter Summary ---
Author Organization [facility] Address [address] [facility]. [place], [place] [address] [place] [address] Care Team Providers Care Sap Fico Business Analyst Name Role Phone Dane Sullivan DO Primary Care Provider + [phone] Asa Mcnamara MD Unavailable [phone] Deisi Andrews MD Primary Care Provider [phone] Heber Adorno MD Primary Care Provider Unavailable Dane Sullivan DO Primary Care Provider + [phone] Dane Sullivan DO Primary Care Provider + [phone] Dane Sullivan DO Primary Care Provider + [phone] Deisi Andrews MD Primary Care Provider [phone] Encounter Details Date Type Department Care Team (Late st Contact Info) Description 04/07/2016 Abstract [facility] Medical Group [facility] [place] [address] [place] [address] Carlin Jaquez, DPDilcia [address] [place] [address] Social History Tobacco Use Types Packs/Day Years Used Date Smoking Tobacco: Never Assessed Comments Unknown Sex and Gender Information Value Date Recorded Sex Assigned at Female 12/06/2019 3:36 PM PALM GATHERER Legal Sex Female 5:20 PM CDT Gender Identity Female 12/06/2019 3:36 PM PALM GATHERER Sexual Orientation Straight 12/06/2019 3: 36 PM PALM GATHERER documented as of this encounter Last Filed Vital Signs Vital Sign Reading Time Taken Comments Blood Pressure 132/80 04/07/2016 9:08 AM CDT Pulse - - Temperature - - Respiratory Rate - - Oxygen Saturation - - Inhaled Oxygen Concentration - - Weight 102.1 kg (225 lb) 04/07/2016 9:08 AM CDT Height 160 cm (5' 3 ) 04/07/2016 9:08 AM CDT Body Mass Index 39.86 04/07/2016 9:08 AM CDT documented in this encounter Progress Notes * Carlin Jaquez DPM - 04/07/2016 8:45 AM CDT Reason For Visit Acute Follow-Up Visit Chief Complaint 1. Foot Problem History of Present Illness Foot Problem: The patient presents with complaints of foot pain Symptoms are improving (f/u on lt foot callus) HPI: Patient states that her foot is improved. Active Problems 1. Anxiety (300.00) (F41.9) 2. [...] Smoking (305.1) (F17.200) Immunizations Influenza --- Series1: [id number] Current Meds 1. AmLODIPine Besylate 5 MG Oral Tablet; TAKE 1 TABLET DAILY DIRECTED; Therapy: 25Sep2015 to (Evaluate:22Sep2016) Requested for: 01Apr2016; Last Rx:26Mar2016 Ordered 2. Aspirin 325 MG Oral Tablet; Therapy: (Recorded:[id number]) to Recorded 3. Cyclobenzaprine HCl - 10 MG Oral Tablet; TAKE 1 TABLET QD-BID PRN; Therapy: 27Nov2015 to (Last Rx:27Nov2015) Requested for: 01Apr2016 Ordered 4. Losartan Potassium 100 MG Oral Tablet; TAKE ONE TABLET BY MOUTH ONCE DAILY; Therapy: 10Mar2016 to (Evaluate:05Dec2016) Requested for: [id number]; Last Rx:10Mar2016 Ordered 5. MetFORMIN HCl - 500 MG Oral Tablet; TAKE ONE TABLET BY MOUTH TWICE DAILY WITH MEALS; Therapy: 10Mar2016 to (Evaluate:[id number]) Requested for: 01Apr2016; Last Rx:10Mar2016 Ordered 6. Montelukast Sodium 10 MG Oral Tablet (Singulair); TAKE 1 TABLET DAILY Requested for: 01Apr2016; Last Rx:[id number] Ordered 7. Pravastatin Sodium 40 MG Oral Tablet; TAKE ONE TABLET BY MOUTH ONCE DAILY; Therapy: [id number] to (Evaluate:[id number]) Requested for: 01Apr2016; Last Rx:12Feb2016 Ordered 8. PriLOSEC 20 MG Oral Capsule Delayed Release (Omeprazole); Therapy: (Recorded:01Apr2016) to Recorded 9. PROzac 40 MG Oral Capsule (FLUoxetine HCl); Therapy: (Recorded:01Apr2016) to Recorded 10. Qvar 40 MCG/ACT Inhalation Aerosol Solution; INHALE ONE PUFF BY MOUTH TWICE DAILY; Therapy: 27Mar2016 to (Evaluate:23Sep2016) Requested for: 01Apr2016; Last Rx:27Mar2016 Ordered 11. Ventolin HFA 108 (90 Base) MCG/ACT Inhalation Aerosol Solution; INHALE TWO PUFFS BY MOUTH EVERY 4 TO 6 HOURS NEEDED; Therapy: [id number] to (Evaluate:22Feb2016) Requested for: 01Apr2016; Last Rx:[id number] Ordered 12. Xanax 1 MG Oral Tablet (ALPRAZolam); Therapy: (Recorded:01Apr2016) to Recorded Allergies 1. Halcion 2. Haldol 3. Penicillins 4. Risperidone and Related Vitals Recorded: 07Apr2016 09:08AM Systolic 132 Diastolic 80 Height 5 ft 3 in Weight 225 lb BMI Calculated 39.86 BSA Calculated 2.03 Physical Exam (Porokeratotic type lesion plantar 5th MPJ left. Pain with palpation. There is a fleshy lesion on the medial plantar left great toe. The lesion is at the side of a previous skin graft that was applied because of an ulceration. She states that it has been there quite a while and that she pretty muchjust files it down to make it smooth so it does not catch on anything). Assessment 1. 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 Soft tissue mass (729.90) (M79.9) 3. Plantar warts (078.12) (B07.0) Plan Treatment options were discussed today. I trimmed the porokeratotic lesion again. At this point, I will see her back next week for reevaluation and biopsy of the skin lesion. Signatures Electronically signed by : Carlin Jaquez DPM; Apr 15 2016 12:40PM PALM GATHERER (Author) documented in this encounter Plan of Treatment Not on file documented as of this encounter Visit Diagnoses Not on filedocumented in this encounter Care Teams Sap Fico Business Analyst Relationship Specialty Start Date End Date Dane Sullivan DO PCP - General FAMILY PRACTICE 05/15/16 02/11/17 Deisi Andrews MD [address] [place] [address] PCP - General FAMILY PRACTICE 02/13/17 03/10/17 Heber Adorno MD PCP - General 03/11/17 06/14/17 Dane Sullivan DO PCP - General 05/04/16 05/14/16 Dane Sullivan DO PCP - General 04/17/16 05/03/16 Dane Sullivan DO PCP - General 03/26/16 04/16/16 Deisi Andrews MD [address] [place] [address] PCP - General FAMILY PRACTICE 06/15/17 10/14/19 Asa Mcnamara MD [facility]. [facility] [address] [place] [address] Pond Eddy Bessemer Converter Blower CARDIOVASCULAR DISEASE 05/15/16 documented as of this encounter
--- OUTSIDE RECORDS SUMMARY | 2024-11-12 04:49 | XMS_ITS | Encounter Summary ---
Author Organization [facility] Address [facility]. [place], [place] [address] [place] [address] Care Team Providers Care Painter Name Role Phone Dane Sullivan DO Primary Care Provider + [phone] Asa Mcnamara MD Unavailable [phone] Deisi Andrews MD Primary Care Provider [phone] Heber Adorno MD Primary Care Provider Unavailable Deisi Andrews MD Primary Care Provider [phone] Encounter Details Date Type Department Care Team (Latest Contact Info) Description 07/01/2016 Abstract [facility] Medical Group Heber Adorno MD Social History Tobacco Use Types Packs/Day Years Used Date Smoking Tobacco: Every Day Cigarettes Smokeless Tobacco: Never Alcohol Use Standard Drinks/Week Comments No 0 (1 standard drink = 0.6 oz pur e alcohol) Comments Unknown Sex and Gender Information Value Date Recorded Sex Assigned at Female 12/06/2019 3:36 PM SALES ACCOUNT COORDINATOR Legal Sex Female 5:20 PM CDT Gender Identity Female 12/06/2019 3:36 PM SALES ACCOUNT COORDINATOR Sexual Orientation Straight 12/06/2019 3: 36 PM SALES ACCOUNT COORDINATOR 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 [address] Patient: RODY CRUZ [facility] Rec#: [id number] Birthdate: 1960 Admit/Svce Date: 07/01/2016 Disch Date: Attending Md: ASA MCNAMARA MD CHART DOCUMENT PREOPERATIVE DIAGNOSIS: POSTOPERATIVE DIAGNOSIS: SURGERY PERFORMED: DATE: 07/01/2016 SURGEON: ASA MCNAMARA M.D. TELEVISION CABINET FINISHER: GANGA GARCIA MD INDICATIONS: 1. Lifestyle limiting intermittent claudication. 2. Bilateral iliac disease. PROCEDURE: The patient was prepped and draped using aseptic techniques. Both groins were anesthetized using 1% lidocaine. Using ultrasound guidance, the right common femoral artery was cannulated. A 5-Macanese sheath was placed. A J-tipped wire was advanced into the aorta. A crossover catheter was advanced over this wire. The left common iliac artery was cannulated. Angiogram was performed which was subsequently used as roadmap to cannulate the left common femoral artery. A 7-Macanese 23 cm sheath was placed in the left femoral artery. The crossover catheter was now exchanged for a 5-Macanese pigtail catheter. Aortogram was performed in the AP projection and subsequently in orthogonal views. There was 70% ostial stenosis in the right common iliac artery. This was a discrete lesion. There was mild disease in distal abdominal aorta just proximal to the bifurcation. There was mild 20% to 30% disease in the left common iliac artery. Initial approach was to just treat the right common iliac artery. Heparin was used for anticoagulation. The 5-Macanese sheath was exchanged for a 7-Macanese sheath in the right femoral artery. The ostial right common iliac artery lesion was treated using a 6.0 x 20 mm balloon. Repeat angiogram was performed which showed some improvement in the stenosis. The left side appeared worse. We decided to perform bilateral iliac stenting. A 7.0 x 20 mm balloon expandable stent was positioned in the right common iliac artery. A 7.0 x 37 mm balloon expandable stent was positioned in the left common iliac artery. Both stents were extended to cover the plaque in the distal abdominal aorta. These kissing stents were deployed simultaneously at nominal pressures. The stent balloons were removed. Postdilatation performed using an 8.0 x 40 mm balloon in the right iliac artery and the proximal part of this balloon was advanced in the aorta. The left stent was post dilated using the 7.0 x 30 mm stent balloon. Both balloons were expanded to high pressures. The balloons were deflated and removed. Final angiogram was performed which showed adequately deployed stent with no significant paced. There was mild disease in the distal left common iliac artery extending into the external iliac artery. We decided to accept the results. After reading the angiogram and making sure the lesion had been adequately treated, the guidewires were removed. The 7-Macanese sheath was secured to the skin. The patient received 600 mg loading dose of clopidogrel. The closing ACT was 221 seconds. CONCLUSIONS: Successful endovascular intervention of bilateral common iliac arteries. A 7.0 x 27 mm stent deployed in the right common iliac artery postdilated with an 8.0 x 40 mm balloon. A 7.0 x 37 mm stent deployed in the left common iliac artery. RECOMMENDATIONS: 1. Dual antiplatelets for 1-3 months. 2. Risk factor modification. Electronically Signed By: ASA MCNAMARA M.D. 07/03/2016 05:55 P ASA MCNAMARA M.D. A #[id number] P/jaret cc: Michelle ISLAS D.O. documented in this encounter Plan of Treatment Not on file documented as of this encounter Visit Diagnoses Not on filedocumented in this encounter Care Teams Painter Relationship Specialty Start Date End Date Dane Sullivan DO PCP - General FAMILY PRACTICE 05/15/16 02/11/17 Deisi Andrews MD [address] [place] [address] [place] [address] PCP - General FAMILY PRACTICE 02/13/17 03/10/17 Heber Adorno MD PCP - General 03/11/17 06/14/17 Deisi Andrews MD [address] [place] [address] [place] [address] PCP - General FAMILY PRACTICE 06/15/17 10/14/19 Asa Mcnamara MD [facility]. [facility] [address] [place] [address] Alexander Resident Program Specialist CARDIOVASCULAR DISEASE 05/15/16 documented as of this encounter
--- OUTSIDE RECORDS SUMMARY | 2024-11-12 04:49 | XMS_ITS | Encounter Summary ---
Author Organization [facility] Address [facility] [facility] [place], [place] [address] [place] [address] Care Team Providers Care Typewriter Assembly And Parts Inspector Name Role Phone Dane Sullivan DO Primary Care Provider + [phone] Asa Mcnamara MD Unavailable [phone] Deisi Andrews MD Primary Care Provider [phone] Heber Adorno MD Primary Care Provider Unavailable Deisi Andrews MD Primary Care Provider [phone] Encounter Details Date Type Department Care Team (Latest Contact Info) Description 07/23/2016 Abstract [facility] Medical Group Social History Tobacco Use Types Packs/Day Years Used Date Smoking Tobacco: Every Day Cigarettes Smokeless Tobacco: Never Alcohol Use Standard Drinks/Week Comments No 0 (1 standard drink = 0.6 oz pur e alcohol) Comments Unknown Sex and Gender Information Value Date Recorded Sex Assigned at Female 12/06/2019 3:36 PM REVERSE ENGINEER Legal Sex Female 5:20 PM CDT Gender Identity Female 12/06/2019 3:36 PM REVERSE ENGINEER Sexual Orientation Straight 12/06/2019 3: 36 PM REVERSE ENGINEER 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 Not on file Not on file documented as of this encounter Plan of Treatment Not on file documented as of this encounter Visit Diagnoses Not on filedocumented in this encounter Care Teams Typewriter Assembly And Parts Inspector Relationship Specialty Start Date End Date Dnae Sullivan DO PCP - General FAMILY PRACTICE 05/15/16 02/11/17 Deisi Andrews MD [address] [place] [address] PCP - General FAMILY PRACTICE 02/13/17 03/10/17 Heber Adorno MD PCP - General 03/11/17 06/14/17 Deisi Andrews MD [address] [place] [address] PCP - General FAMILY PRACTICE 06/15/17 10/14/19 Asa Mcnamara MD [facility] [address] [place] [address] [place] Wool Presser CARDIOVASCULAR DISEASE 05/15/16 documented as of this encounter
--- OUTSIDE RECORDS SUMMARY | 2024-11-12 04:49 | XMS_ITS | Encounter Summary ---
Author Organization [facility] Address [facility] [place], [place] [address] [place] [address] Care Team Providers Care Farm Machinery Set Up Mechanic Name Role Phone Dane Sullivan DO Primary Care Provider + [phone] Asa Mcnamara MD Unavailable [phone] Deisi Andrews MD Primary Care Provider [phone] Heber Adorno MD Primary Care Provider Unavailable Dane Sullivan DO Primary Care Provider + [phone] Dane Sullivan DO Primary Care Provider + [phone] Dane Sullivan DO Primary Care Provider + [phone] Dane Sullivan DO Primary Care Provider + [phone] Deisi Andrews MD Primary Care Provider [phone] Encounter Details Date Type Department Care Team (Latest Contact Info) Description 03/17/2016 Abstract [facility] Medical Group Social History Tobacco Use Types Packs/Day Years Used Date Smoking Tobacco: Never Assessed Comments Unknown Sex and Gender Information Value Date Recorded Sex Assigned at Female 12/06/2019 3:36 PM ART PSYCHOTHERAPIST OR THERAPIST Legal Sex Female 5:20 PM CDT Gender Identity Female 12/06/2019 3:36 PM ART PSYCHOTHERAPIST OR THERAPIST Sexual Orientation Straight 12/06/2019 3: 36 PM ART PSYCHOTHERAPIST OR THERAPIST documented as of this encounter Plan of Treatment Not on file documented as of this encounter Visit Diagnoses Not on filedocumented in this encounter Care Teams Farm Machinery Set Up Mechanic Relationship Specialty Start Date End Date Dane Sullivan DO PCP - General FAMILY PRACTICE 05/15/16 02/11/17 Deisi Andrews MD [address] [place] [address] PCP - General FAMILY PRACTICE 02/13/17 03/10/17 Heber Adorno MD PCP - General 03/11/17 06/14/17 Dane Sullivan DO PCP - General 05/04/16 05/14/16 Dnae Sullivan DO PCP - General 04/17/16 05/03/16 Dane Sullivan DO PCP - General 03/26/16 04/16/16 Dane Sullivan DO PCP - General 11/12/15 03/25/16 Deisi Andrews MD [address] [place] [address] PCP - General FAMILY PRACTICE 06/15/17 10/14/19 Asa Mcnamara MD [facility]. [facility] [address] [place] [address] Itmann Hinging Machine Operator CARDIOVASCULAR DISEASE 05/15/16 documented as of this encounter
--- OUTSIDE RECORDS SUMMARY | 2024-11-12 04:49 | XMS_ITS | Encounter Summary ---
Author Organization [facility] Address [address] [facility]. [place], [place] [address] [place] [address] Care Team Providers Care Tow Motor Mechanic Name Role Phone Dane Sullivan DO Primary Care Provider + [phone] Asa Mcnamara MD Unavailable [phone] Deisi Andrews MD Primary Care Provider [phone] Heber Adorno MD Primary Care Provider Unavailable Dane Sullivan DO Primary Care Provider + [phone] Dane Sullivan DO Primary Care Provider + [phone] Dane Sullivan DO Primary Care Provider + [phone] Deisi Andrews MD Primary Care Provider [phone] Encounter Details Date Type Department Care Team (Latest Contact Info) Description 03/27/2016 Abstract [facility] Medical Group Dane Sullivan DO [address] [address] Social History Tobacco Use Types Packs/Day Years Used Date Smoking Tobacco: Never Assessed Comments Unknown Sex and Gender Information Value Date Recorded Sex Assigned at Female 12/06/2019 3:36 PM RESIDENTIAL DIRECT SUPPORT PROFESSIONAL Legal Sex Female 5:20 PM CDT Gender Identity Female 12/06/2019 3:36 PM RESIDENTIAL DIRECT SUPPORT PROFESSIONAL Sexual Orientation Straight 12/06/2019 3: 36 PM RESIDENTIAL DIRECT SUPPORT PROFESSIONAL documented as of this encounter Progress Notes * Dane Sullivan, DO - 03/27/2016 11:03 AM CDT Verified Results *Urine dip auto In Office 26Mar2016 11:29AM Dane Sullivan Test Name Result Flag Reference Color Yellow Clarity Clear Glucose Negative Bilirubin Negative Ketones Negative Specific [place] 1.030 Blood Negative pH 5.5 5.0 - [...] TSH W Reflex Free T4 26Mar2016 10:15AM Dane Sullivan Test Name Result Flag Reference TSH w Reflex Free T4 1.81 mIU/mL 0.27-4.20 FREE T4 NOT INDICATED CBC W Differential 26Mar2016 10:15AM Dane Sullivan Test Name Result Flag Reference WBC 10.1 [...] % 0.0-1.0 IMMATURE GRANULOCYTES 0.5 % 0.0-1.0 Plan Proteinuria ?? *Urine dip auto In Office; Status:Hold For - Specimen/Data Collection; Requested for:27Mar2016; Discussion/Summary Her urine has some protein in it, this is to be confirmed with another UA Have her repeat urine dip again in 2 weeks, if elevated, will need further studies rest of her labs normal or unremrakable, her A1C is controlled at 5.9 documented in this encounter Plan of Treatment Not on file documented as of this encounter Visit Diagnoses Not on filedocumented in this encounter Care Teams Tow Motor Mechanic Relationship Specialty Start Date End Date Dane Sullivan DO PCP - General FAMILY PRACTICE 05/15/16 02/11/17 Deisi Andrews MD [address] [place] [address] PCP - General FAMILY PRACTICE 02/13/17 03/10/17 Heber Adorno MD PCP - General 03/11/17 06/14/17 Dane Sullivan DO PCP - General 05/04/16 05/14/16 Dane Sullivan DO PCP - General 04/17/16 05/03/16 Dane Sullivan DO PCP - General 03/26/16 04/16/16 Deisi Andrews MD [address] [place] [address] PCP - General FAMILY PRACTICE 06/15/17 10/14/19 Asa Mcnamara MD [facility]. [facility] [address] [place] [address] Louann Agricultural Services Director CARDIOVASCULAR DISEASE 05/15/16 documented as of this encounter
--- OUTSIDE RECORDS SUMMARY | 2024-11-12 04:49 | XMS_ITS | Encounter Summary ---
Author Organization [facility] Address [facility]. [place], [place] [address] [place] [address] Care Team Providers Care Office Spec Name Role Phone Tere Monae DO Primary Care Provider + [phone] Asa Mcnamara MD Unavailable [phone] Deisi Andrews MD Primary Care Provider [phone] Heber Adorno MD Primary Care Provider Unavailable Tere Monae DO Primary Care Provider + [phone] Deisi Andrews MD Primary Care Provider [phone] Encounter Details Date Type Department Care Team (Latest Contact Info) Description 05/04/2016 Abstract [facility] , Generic MD Vivi Social History Tobacco Use Types Packs/Day Years Used Date Smoking Tobacco: Never Assessed Comments Unknown Sex and Gender Information Value Date Recorded Sex Assigned at Female 12/06/2019 3:36 PM TREE LOADER MEAT Legal Sex Female 5:20 PM CDT Gender Identity Female 12/06/2019 3:36 PM TREE LOADER MEAT Sexual Orientation Straight 12/06/2019 3: 36 PM TREE LOADER MEAT documented as of this encounter Procedure Notes * Tere Monae DO - 05/04/2016 10:10 AM CDT [place] [address] Patient: RODY CRUZ MEGA [facility] Rec#: [id number] Birthdate: 1960 Admit/Svce Date: 05/04/2016 Disch Date: Attending Md: ELI HAY MD CHART DOCUMENT PREOPERATIVE DIAGNOSIS: Lumbar radiculopathy. POSTOPERATIVE DIAGNOSIS: Lumbar radiculopathy. SURGERY PERFORMED: Right L4-5 lumbar interlaminar epidural steroid injection under fluoroscopy. DATE: 05/04/2016 SURGEON: ELI HAY MD DRILLING SUPERVISOR: REFERRING PHYSICIAN: CAPT. TERE MONAE D.O. LEVEL: L4-5 on the right. ANESTHESIA: Local only. CHIEF COMPLAINT: Low back right-sided pain. Patient is not diabetic. Patient has been NPO. No allergies to contrast. No anticoagulant. Risks, benefits, alternate treatments discussed. Written consent obtained. Patient taken to procedure room placed in prone position. Pillow under abdomen to reduce lumbar lordosis. Sterile prep and drape of lumbosacral spine performed. ASA standard monitors applied. PROCEDURE: Vertebral bodies were squared. Skin and subcutaneous tissues were anesthetized with 1% lidocaine. A 3-1/2-inch, 20-gauge Tuohy epidural needle was placed right of midline at the level of L4-L5 using loss of resistance to air. Appropriate needle tip positions were confirmed in the AP and lateral views. Needle placement was confirmed under fluoroscopy. After negative aspiration, 3 mL of contrast was injected in the lateral view confirming spread in the posterior epidural space. Negative aspiration prior to 3 mL of contrast injected in the AP view confirming spread in the epidural space no intravascular or intrathecal uptake noted. Negative aspiration prior to injection of 80 mg Depo Medrol and 2 mL of 1% lidocaine injected per level. Needle removed. No complications. POST PROCEDURE: Patient tolerated procedure well and observed for approximately 20-30 minutes prior to discharge. Discharged in stable condition with appropriate post procedure instructions. Patient will be called over the next few days for followup. Electronically Signed By: ELI HAY M.D. 05/05/2016 09:56 A ELI HAY M.D. A #[id number] P/ma cc: Michelle EPSTEIN D.O. documented in this encounter Plan of Treatment Not on file documented as of this encounter Visit Diagnoses Not on filedocumented in this encounter Care Teams Office Spec Relationship Specialty Start Date End Date Tere Monae DO PCP - General FAMILY PRACTICE 05/15/16 02/11/17 Deisi Andrews MD [address] [place] [address] PCP - General FAMILY PRACTICE 02/13/17 03/10/17 Heber Adorno MD PCP - General 03/11/17 06/14/17 Tere Monae DO PCP - General 05/04/16 05/14/16 Deisi Andrews MD [address] [place] [address] PCP - General FAMILY PRACTICE 06/15/17 10/14/19 Asa Mcnamara MD [facility]. [address] [place] [address] Stephen Respiratory Technician CARDIOVASCULAR DISEASE 05/15/16 documented as of this encounter
--- OUTSIDE RECORDS SUMMARY | 2024-11-12 04:49 | XMS_ITS | Encounter Summary ---
Author Organization [facility] Address [facility]. [place], [place] [address] [place] [address] Care Team Providers Care Family Support Specialist Name Role Phone Dane Sullivan DO Primary Care Provider + [phone] Asa Mcnamara MD Unavailable [phone] Deisi Andrews MD Primary Care Provider [phone] Heber Adorno MD Primary Care Provider Unavailable Dane Sullivan DO Primary Care Provider + [phone] Dane Sullivan DO Primary Care Provider + [phone] Dane Sullivan DO Primary Care Provider + [phone] Dane Sullivan DO Primary Care Provider + [phone] Deisi Andrews MD Primary Care Provider [phone] Encounter Details Date Type Department Care Team (Latest Contact Info) Description 01/20/2016 Abstract [facility] Medical Group Social History Tobacco Use Types Packs/Day Years Used Date Smoking Tobacco: Never Assessed Comments Unknown Sex and Gender Information Value Date Recorded Sex Assigned at Female 12/06/2019 3:36 PM SENIOR WIND TURBINE TECHNICIAN Legal Sex Female 5:20 PM CDT Gender Identity Female 12/06/2019 3:36 PM SENIOR WIND TURBINE TECHNICIAN Sexual Orientation Straight 12/06/2019 3: 36 PM SENIOR WIND TURBINE TECHNICIAN documented as of this encounter Plan of Treatment Not on file documented as of this encounter Visit Diagnoses Not on filedocumented in this encounter Care Teams Family Support Specialist Relationship Specialty Start Date End Date Dane Sullivan DO PCP - General FAMILY PRACTICE 05/15/16 02/11/17 Deisi Andrews MD [address] [place] [address] PCP - General FAMILY PRACTICE 02/13/17 03/10/17 Heber Adorno MD PCP - General 03/11/17 06/14/17 Dane Sullivan DO PCP - General 05/04/16 05/14/16 Dane Sullivan DO PCP - General 04/17/16 05/03/16 Dane Sullivan DO PCP - General 03/26/16 04/16/16 Dane Sullivan DO PCP - General 11/12/15 03/25/16 Deisi Andrews MD [address] [place] [address] PCP - General FAMILY PRACTICE 06/15/17 10/14/19 Asa Mcnamara MD [facility]. [address] [place] [address] [place] Drywall Professional CARDIOVASCULAR DISEASE 05/15/16 documented as of this encounter
--- OUTSIDE RECORDS SUMMARY | 2024-11-12 04:49 | XMS_ITS | Encounter Summary ---
Author Organization [facility] Address [address] [place] [address] [place] [address] Care Team Providers Care Supervisor Photocomposition Name Role Phone Dane Sullivan Primary Care Provider [phone] Asa Mcnamara MD Unavailable [phone] Encounter Details Date Type Department Care Team (Late st Contact Info) Description 06/05/2016 CLOTHES MARKER ONLY [facility] [address] [place] [address] Asa Mcnamara MD [place] [address] [place] [address] Social History Tobacco Use Types Packs/Day Years Used Date Smoking Tobacco: Every Day Cigarettes Smokeless Tobacco: Never Alcohol Use Standard Drinks/Week Comments No 0 (1 standard drink = 0.6 oz pur e alcohol) Comments Unknown Sex and Gender Information Value Date Recorded Sex Assigned at Female 12/06/2019 3:36 PM SURVEY CHIEF Legal Sex Female 5:20 PM CDT Gender Identity Female 12/06/2019 3:36 PM SURVEY CHIEF Sexual Orientation Straight 12/06/2019 3: 36 PM SURVEY CHIEF 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 LINKER UP: INDICATION: 1. Lifestyle limiting intermittent claudication. 2. Moderately reduced KENZIE in the right leg. PROCEDURE: The patient was prepped and draped using aseptic techniques. The left one was anesthetized using 1% lidocaine. Using ultrasound guidance, the left common femoral artery was cannulated. A 5-Filipino sheath was placed. An Omni Flush catheter was advanced into the abdominal aorta. Aortogram was performed in the AP projection. The catheter was pulled back to just above the aortic bifurcation. Iliac angiograms were performed in orthogonal views. Using a J-tipped wire, this catheter was exchanged for a 5-Filipino crossover catheter. The right common iliac artery was cannulated. A Glidewire was advanced through this catheter. The catheter was advanced over the wire and parked in the distal right external iliac artery. Selective right lower extremity angiogram was performed using DSA at multiple stations. The catheter was now pulled back and the pressure gradient was recorded across the right common iliac artery. This catheter was removed. The selective left lower extremity angiogram was performed through the side port of the femoral artery sheath. FINDINGS: Abdominal Aortogram: No significant atherosclerotic disease noted in the abdominal aorta. Bilateral renal arteries are patent. There is mild disease in the proximal right renal artery. The celiac trunk and the mesenteric vessels are patent. The ostia of the mesenteric vessels not well visualized in the AP projection. Iliac angiogram: The right common iliac artery has a focal 60% to 70% ostial stenosis. The rest of the common iliac artery and the external iliac artery are free of disease. The internal iliac artery has mild disease. The left common iliac artery has mild ostial disease. The rest of the common iliac artery has luminal irregularity but no focal stenosis. The left internal iliac and external iliac are free of significant disease. Right common femoral, superficial femoral, and profunda femoris arteries are free of significant disease. The popliteal artery has no significant disease. Below the knee the anterior tibial artery has very slow flow but it appears to reach the foot. The tibioperoneal trunk has no significant disease. The popliteal artery has a dominant runoff to the right foot. The peroneal artery is a very small vessel. The left common femoral artery has no significant disease. The left SFA and popliteal artery has mild disease. The profunda femoris is free of significant disease. Below the knee the anterior tibial artery again has very slow flow but it does appear to reach the foot. The popliteal artery is again the dominant vessel to the left foot. The peroneal artery is a high-grade ostial stenosis and subsequent to that is a very small vessel. CONCLUSIONS: 1. 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 RECOMMENDATIONS: 1. Patient will be scheduled for a staged endovascular intervention of the right common iliac artery. 2. Continue aggressive risk factor modification. Electronically Signed By: ASA MCNAMARA M.D. 06/05/2016 05:20 P ASA MCNAMARA M.D. A #[id number] P/ma cc: Michelle ISLAS D.O. documented in this encounter Plan of Treatment Not on file documented as of this encounter Visit Diagnoses Not on filedocumented in this encounter Care Teams Supervisor Photocomposition Relationship Specialty Start Date End Date Dane Sullivan DO PCP - General FAMILY PRACTICE 05/15/16 02/11/17 Asa Mcnamara MD [facility]. [place] [address] [place] [address] [place] Machine Repairman CARDIOVASCULAR DISEASE 05/15/16 documented as of this encounter
--- OUTSIDE RECORDS SUMMARY | 2024-11-12 04:49 | XMS_ITS | Encounter Summary ---
Author Organization [facility] Address [address] [facility] [place] [address] [place] [address] Care Team Providers Care Simulation Analyst Name Role Phone Dane Sullivan DO Primary Care Provider + [phone] Asa Mcnamara MD Unavailable [phone] Deisi Andrews MD Primary Care Provider [phone] Heber Adorno MD Primary Care Provider Unavailable Dane Sullivan DO Primary Care Provider + [phone] Deisi Andrews MD Primary Care Provider [phone] Encounter Details Date Type Department Care Team (Late st Contact Info) Description 05/07/2016 Abstract [facility] Family Medicine - [place] [address] [place] [address] Dane Sullivan DO [address] [id number] Social History Tobacco Use Types Packs/Day Years Used Date Smoking Tobacco: Never Assessed Comments Unknown Sex and Gender Information Value Date Recorded Sex Assigned at Female 12/06/2019 3:36 PM HOTEL DIRECTOR Legal Sex Female 5:20 PM CDT Gender Identity Female 12/06/2019 3:36 PM HOTEL DIRECTOR Sexual Orientation Straight 12/06/2019 3: 36 PM HOTEL DIRECTOR documented as of this encounter Last Filed Vital Signs Vital Sign Reading Time Taken Comments Blood Pressure 140/82 05/07/2016 8:00 AM CDT Pulse 87 05/07/2016 8:00 AM CDT Temperature - - Respiratory Rate - - Oxygen Saturation - - Inhaled Oxygen Concentration - - Weight 100.8 kg (222 lb 2.1 oz) 05/07/2016 8:00 AM CDT Height - - Body Mass Index 39.35 04/14/2016 1:15 PM CDT documented in this encounter Progress Notes * Dane Monsalve Nate, DO - 05/07/2016 8:00 AM CDT History of Present Illness HPI Free Text: cc: vomiiting x 1 day felt nauseated last night had diarrhea and vomiting this AM 5 people in her family have same symptoms before her they had olga [employer] chicken and [employer] pizza able to tolerate water has not tried any foods yet wants a note saying she needs air conditioner due to her COPD Her AC went out recently, and [facility] is offering free AC but needs MD note Review of systems General: denies any fevers, chills. Gastrointestinal: as above Cardiovascular: Patient denies Chest pain, shortness of breath. Physical Exam General: just finished vomiting as I entered room, not ill appearing Eyes: Conjunctiva and lids: no swelling, erythema [...] Extremities: No clubbing, cyanosis, or edema noted. Neuro: grossly intact. Psych: Normal mood, normal [...] (M79.89) 14. Overactive bladder (596.51) (N32.81) 15. Pes cavus (736.73) (M21.6X9) 16. Plantar warts (078.12) (B07.0) 17. Porokeratosis (757.39) (Q82.8) 18. Proteinuria (791.0) (R80.9) 19. Smoking (305.1) (F17.200) 20. Soft tissue mass (729.90) (M79.9) Past Medical [...] Smoking (305.1) (F17.200) Immunizations Influenza --- Series1: [id number] Current Meds 1. AmLODIPine Besylate 5 MG Oral Tablet; TAKE 1 TABLET DAILY DIRECTED; Therapy: 25Sep2015 to (Evaluate:22Sep2016) Requested for: 01Apr2016; Last Rx:26Mar2016 Ordered Rx By: Dane Sullivan; Dispense: 90 Days ; #:90 Tablet; Refill: 1; For: Hypertension; ADAM = N; Verified Transmission to [facility]; Last Updated By: Marilee Walker; 04/01/2016 8:50:15 AM 2. Aspirin 325 MG Oral Tablet; Therapy: (Recorded:01Apr2016) to Recorded Dispense: 0 Days ; #: Sufficient TABS; Refill: 0; ADAM = N; Record; Last Updated By: Marilee Walker; 04/01/2016 8:50:14 AM 3. Cyclobenzaprine HCl - 10 MG Oral Tablet; TAKE ONE TABLET BY MOUTH ONCE TO TWICE DAILY NEEDED; Therapy: 27Nov2015 to (Evaluate:71Hpz5826) Requested for: 16Apr2016; Last Rx:16Apr2016 Ordered Rx By: Dane Sullivan; Dispense: 30 Days ; #:60 TAB; Refill: 2; For: Chronic pain; ADAM = N; Verified Transmission to [facility]; Last Updated By: Ezra Baez; 04/16/2016 9:42:21 AM 4. Losartan Potassium 100 MG Oral Tablet; TAKE ONE TABLET BY MOUTH ONCE DAILY; Therapy: 10Mar2016 to (Evaluate:05Dec2016) Requested for: 01Apr2016; Last Rx:10Mar2016 Ordered Rx By: Dane Sullivan; Dispense: 90 Days ; #:90 TAB; Refill: 2; For: Hypertension; ADAM = N; Verified Transmission to [facility]; Last Updated By: Marilee Walker; 04/01/2016 8:50:14 AM 5. MetFORMIN HCl - 500 MG Oral Tablet; TAKE ONE TABLET BY MOUTH TWICE DAILY WITH MEALS; Therapy: 10Mar2016 to (Evaluate:[id number]) Requested for: 01Apr2016; Last Rx:10Mar2016 Ordered Rx By: Dane Sullivan; Dispense: 30 Days ; #:180 TAB; Refill: 2; For: Health Maintenance; ADAM = N;Verified Transmission to [facility]; Last Updated By: Marilee Walker; 04/01/2016 8:50:14AM 6. Montelukast Sodium 10 MG Oral Tablet; TAKE 1 TABLET DAILY Requested for: 01Apr2016; Last Rx:[id number] Ordered Rx By: Dane Sullivan; Dispense: 90 Days ; #:90 Tablet; Refill: 1; For: Chronic obstructive pulmonary disease; ADAM = N; Verified Transmission to [facility]; Last Updated By: Marilee Walker; 04/01/2016 8:50:14 AM 7. Pravastatin Sodium 40 MG Oral Tablet; TAKE ONE TABLET BY MOUTH ONCE DAILY; Therapy: 60Azr0156 to (Evaluate:98Frb8384) Requested for: 01Apr2016; Last Rx:12Feb2016 Ordered Rx By: Dane Sullivan; Dispense: 90 Days ; #:90 TAB; Refill: 2; For: Hyperlipidemia; ADAM = N; Verified Transmission to [facility]; Last Updated By: Marilee Walker; 04/01/2016 8:50:14 AM 8. PriLOSEC 20 MG Oral Capsule Delayed Release; Therapy: (Recorded:01Apr2016) to Recorded Dispense: 0 Days ; #: Sufficient CPDR; Refill: 0; ADAM = N; Record; Last Updated By: Marilee Walker; 04/01/2016 8:50:14 AM 9. PROzac 40 MG Oral Capsule; Therapy: (Recorded:01Apr2016) to Recorded Dispense: 0 Days ; #: Sufficient CAPS; Refill: 0; ADAM = N; Record; Last Updated By: Marilee Walker; 04/01/2016 8:50:14 AM 10. Qvar 40 MCG/ACT Inhalation Aerosol Solution; INHALE ONE PUFF BY MOUTH TWICE DAILY; Therapy: 27Mar2016 to (Evaluate:23Sep2016) Requested for: 29Iqt3986; Last Rx:[id number] Ordered Rx By: Dane Sullivan; Dispense: 90 Days ; #:27 EA; Refill: 1; For: Chronic obstructive pulmonary disease; ADAM = N; Verified Transmission to [facility]; Last Updated By: Marilee Walker; 04/01/2016 8:50:14 AM 11. Ventolin HFA 108 (90 Base) MCG/ACT Inhalation Aerosol Solution; INHALE TWO PUFFS BY MOUTH EVERY 4 TO 6 HOURS NEEDED; Therapy: 19Hnj6297 to (Evaluate:22Feb2016) Requested for: 33Lqp3855; Last Rx:[id number] Ordered Rx By: Dane Sullivan; Dispense: 17 Days ; #:18 EA; Refill: 3; For: Chronic obstructive pulmonary disease; ADAM = N; Verified Transmission to [facility]; Last Updated By: Marilee Walker; 04/01/2016 8:50:15 AM 12. Xanax 1 MG Oral Tablet; Therapy: (Recorded:60Zmx2096) to Recorded Dispense: 0 Days ; #: [...] Jennifer Wayne; 04/22/2015 1:02:20 PM Vitals Recorded: 07May2016 08:00AM Temperature 97.3 F Heart Rate 87 Systolic 140 Diastolic 82 O2 Saturation 95 Weight 222 lb 2 oz BMI Calculated 39.35 BSA Calculated 2.02 Assessment 1. Enteritis (558.9) (K52.9) 2. Nausea with vomiting (787.01) (R11.2) 3. Chronic obstructive pulmonary disease (496) (J44.9) Plan Nausea with vomiting 1. Ondansetron 4 MG Oral Tablet Dispersible; DISSOLVE 1 TABLET ON TONGUE EVERY 8 HOURS NEEDED FOR NAUSE OR VOMITING Rx By: Dane Sullivan; Dispense: 5 Days ; #:15 Tablet Dispersible; Refill: 0; For: Nausea with vomiting; ADAM = N; Sent To: [facility] Discussion/Summary COPD note written for AC unit advised quitting smoking would be the best though she does have enteritis likely spread from close contacts just started last night and vomitng today in office after vomiting, she felt fine will treat with rest, hydration she is tolerating po wash hands zofran for vomiting f/u for this prn Signatures Electronically signed by : Dane Sullivan D.O.; May 07 2016 8:18AM HOTEL DIRECTOR (Author) documented in this encounter Miscellaneous Notes * Letter - Dane Sullivan DO - 05/07/2016 8:00 AM CDT To Whom It May Concern: Rody Zaidi is a current patient of mine. She would benefit from having an air conditioner, she hasa medical diagnosis of COPD. Please call my office with any questions, . Sincerely, Dane Sullivan DO Electronically signed by:Dane Sullivan D.O. May 07 2016 8:19AM HOTEL DIRECTOR Author documented in this encounter Plan of Treatment Not on file documented as of this encounter Visit Diagnoses Not on filedocumented in this encounter Care Teams Simulation Analyst Relationship Specialty Start Date End Date Dane Sullivan DO PCP - General FAMILY PRACTICE 05/15/16 02/11/17 Deisi Andrews MD [address] [place] [address] DANNIE CHARLES [address] PCP - General FAMILY PRACTICE 02/13/17 03/10/17 Heber Adorno MD PCP - General 03/11/17 06/14/17 Dane Sullivan DO PCP - General 05/04/16 05/14/16 Deisi Andrews MD [address] [place] [address] [place] [address] PCP - General FAMILY PRACTICE 06/15/17 10/14/19 Asa Mcnamara MD [facility]. [facility] [address] [place] [address] [place] Credit Checker CARDIOVASCULAR DISEASE 05/15/16 documented as of this encounter
--- OUTSIDE RECORDS SUMMARY | 2024-11-12 04:49 | XMS_ITS | Encounter Summary ---
Author Organization [facility] Address [address] [facility]. [place], [place] [address] [place] [address] Care Team Providers Care Cable Installation Manager Name Role Phone Dane Sullivan DO Primary Care Provider + [phone] Asa Mcnamara MD Unavailable [phone] Deisi Andrews MD Primary Care Provider [phone] Heber Adorno MD Primary Care Provider Unavailable Dane Sullivan DO Primary Care Provider + [phone] Dane Sullivan DO Primary Care Provider + [phone] Dane Sullivan DO Primary Care Provider + [phone] Deisi Andrews MD Primary Care Provider [phone] Encounter Details Date Type Department Care Team (Latest Contact Info) Description 04/15/2016 Abstract [facility] Medical [facility] Social History Tobacco Use Types Packs/Day Years Used Date Smoking Tobacco: Never Assessed Comments Unknown Sex and Gender Information Value Date Recorded Sex Assigned at Female 12/06/2019 3:36 PM TUBE WORKER Legal Sex Female 5:20 PM CDT Gender Identity Female 12/06/2019 3:36 PM TUBE WORKER Sexual Orientation Straight 12/06/2019 3: 36 PM TUBE WORKER documented as of this encounter Plan of Treatment Not on file documented as of this encounter Visit Diagnoses Not on filedocumented in this encounter Care Teams Cable Installation Manager Relationship Specialty Start Date End Date Dane Sullivan DO PCP - General FAMILY PRACTICE 05/15/16 02/11/17 Deisi Andrews MD [address] [place] [address] PCP - General FAMILY PRACTICE 02/13/17 03/10/17 Heber Adorno MD PCP - General 03/11/17 06/14/17 Dane Sullivan DO PCP - General 05/04/16 05/14/16 Dane Sullivan DO PCP - General 04/17/16 05/03/16 Dane Sullivan DO PCP - General 03/26/16 04/16/16 Deisi Andrews MD [address] [place] [address] PCP - General FAMILY PRACTICE 06/15/17 10/14/19 Asa Mcnamara MD [facility]. [address] [place] [address] [place] Nursing Specialist CARDIOVASCULAR DISEASE 05/15/16 documented as of this encounter
--- OUTSIDE RECORDS SUMMARY | 2024-11-12 04:49 | XMS_ITS | Encounter Summary ---
Author Organization [facility] Address [facility] [place] [address] [place] [address] Care Team Providers Care Environmental Compliance Technician Name Role Phone Nate Danejuan pablo Monsalve DO Primary Care Provider [phone] Asa Mcnamara MD Unavailable [phone] Reason for Visit * Reason Onset Date Comments Question 07/14/2016 Encounter Details Date Type Department Care Team (Late st Contact Info) Description 07/14/2016 Telephone [facility] AT [address] [address] Karen Barboza, RN Question Social History Tobacco Use Types Packs/Day Years Used Date Smoking Tobacco: Every Day Cigarettes Smokeless Tobacco: Never Alcohol Use Standard Drinks/Week Comments No 0 (1 standard drink = 0.6 oz pur e alcohol) Comments Unknown Sex and Gender Information Value Date Recorded Sex Assigned at Female 12/06/2019 3:36 PM SUPERVISOR FERTILIZER PROCESSING Legal Sex Female 5:20 PM CDT Gender Identity Female 12/06/2019 3:36 PM SUPERVISOR FERTILIZER PROCESSING Sexual Orientation Straight 12/06/2019 3: 36 PM SUPERVISOR FERTILIZER PROCESSING 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 Called and spoke to pt, pt states she broke her L wrist and is having surgery for this tomorrow, states she remains on asa, and only held plavix starting today. Pt s/p bilat stent to iliac arteries on 07/01/16. Message to Dr. Mcnamara, notified both pt and [facility] that Dr. Mcnamara would NOT recommend holding plavix, but if has to be held for 2 days and surgery cannot wait then at surgeon's discretion, ptmust remain ON asa, I told Farzana to please let pt know and I told pt the same, both verbalize understanding and have no further questions, pt knows to resume plavix rod post op if surgeon says ok. Rosy Barboza R.N. documented in this encounter Plan of Treatment Not on file documented as of this encounter Visit Diagnoses Not on filedocumented in this encounter Care Teams Environmental Compliance Technician Relationship Specialty Start Date End Date Dane Sullivan DO PCP - General FAMILY PRACTICE 05/15/16 02/11/17 Asa Mcnamara MD [facility]. [facility] [address] [place] [address] Delphia Fios Line Installer CARDIOVASCULAR DISEASE 05/15/16 documented as of this encounter
--- OUTSIDE RECORDS SUMMARY | 2024-11-12 04:49 | XMS_ITS | Encounter Summary ---
Author Organization [facility] Address [address] [place] [address] [place] [address] Care Team Providers Care Flower Cheniller Name Role Phone Dane Sullivan Primary Care Provider [phone] Asa Mcnamara MD Unavailable [phone] Reason for Visit * Reason Onset Date Comments Surgical Clearance 06/26/2016 Encounter Details Date Type Department Care Team (Late st Contact Info) Description 06/26/2016 Telephone [facility] AT [address] [address] Asa Mcnamara MD [address] [address] Surgical Clearance Social History Tobacco Use Types Packs/Day Years Used Date Smoking Tobacco: Every Day Cigarettes Smokeless Tobacco: Never Alcohol Use Standard Drinks/Week Comments No 0 (1 standard drink = 0.6 oz pur e alcohol) Comments Unknown Sex and Gender Information Value Date Recorded Sex Assigned at Female 12/06/2019 3:36 PM FINISHED GOODS INSPECTOR Legal Sex Female 5:20 PM CDT Gender Identity Female 12/06/2019 3:36 PM FINISHED GOODS INSPECTOR Sexual Orientation Straight 12/06/2019 3: 36 PM FINISHED GOODS INSPECTOR 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 * Christina Munguia PA-C - 06/26/2016 4:23 PM CDT Ok to hold medication 48 hours prior to injection. Irene Vasquez * Porsha David - 06/26/2016 10:26 AM CDT Received fax request from [facility] requesting clearance for Pletal to be held 2 days prior to pain management injections. Patient is scheduled for peripheral intervention with Dr. Mcnamara on 07/01/16. Forwarded to JOSE Triplett for Dr. Mcnamara. documented in this encounter Plan of Treatment Not on file documented as of this encounter Visit Diagnoses Not on filedocumented in this encounter Care Teams Flower Cheniller Relationship Specialty Start Date End Date Dane Sullivan DO PCP - General FAMILY PRACTICE 05/15/16 02/11/17 Asa Mcnamara MD [address] [place] [address] [place] [address] Stephen Manager Delivery CARDIOVASCULAR DISEASE 05/15/16 documented as of this encounter
--- OUTSIDE RECORDS SUMMARY | 2024-11-12 04:49 | XMS_ITS | Encounter Summary ---
Author Organization [facility] Address [address] [facility] [place] [address] [place] [address] Care Team Providers Care Field Contact Person Name Role Phone Dane Sullivan Primary Care Provider [phone] Encounter Details Date Type Department Care Team (Late st Contact Info) Description 04/17/2016 Abstract [facility] AT [address] [address] , Heber Trinidad MD Social History Tobacco Use Types Packs/Day Years Used Date Smoking Tobacco: Never Assessed Comments Unknown Sex and Gender Information Value Date Recorded Sex Assigned at Female 12/06/2019 3:36 PM KEG HEADER Legal Sex Female 5:20 PM CDT Gender Identity Female 12/06/2019 3:36 PM KEG HEADER Sexual Orientation Straight 12/06/2019 3: 36 PM KEG HEADER documented as of this encounter Plan of Treatment Not on file documented as of this encounter Procedures Procedure Name Priority Date/Time Associated Diagnosis Comments EXTERNAL EJECTION FRACTION Routine 04/17/2016 12:00 AM CDT EXTERNAL EJECTION FRACTION Routine 04/17/2016 12:00 AM CDT documented in this encounter Results * EXTERNAL EJECTION FRACTION (04/17/2016 12:00 AM CDT) EJECTION FRACTION 70-[facility] ORD[facility] INTERFACE Comment: The left ventricular systolic function is hyperdynamic. Estimated left ventricular ejection fraction is 70-75%. Mild concentric left ventricular hypertrophy. Left ventricular diastolic function is abnormal (grade 1 - impairedrelaxation). Trace mitral regurgitation. Mild tricuspid regurgitation. Right ventricular systolic pressure is 35 mmHg. Anatomical Region Laterality Modality Other 04/17/2016 04/17/2016 Narrative 04/17/2016 12:00 AM CDT Echo with Cardiac Doppler, Asa us Generic Conversion Md HUYNH OTHER Final R esult * EXTERNAL EJECTION FRACTION (04/17/2016 12:00 AM CDT) EJECTION FRACTION 70-[facility] ORDERS INTERFACE Comment: The left ventricular systolic function is hyperdynamic. Estimated left ventricular ejection fraction is 70-75%. Mild concentric left ventricular hypertrophy. Left ventricular diastolic function is abnormal (grade 1 - impairedrelaxation). Trace mitral regurgitation. Mild tricuspid regurgitation. Right ventricular systolic pressure is 35 mmHg. Anatomical Region Laterality Modality Other 04/17/2016 04/17/2016 Narrative 04/17/2016 12:00 AM CDT Echo with Cardiac Doppler, ASA ALVA us Generic Conversion Md HUYNH OTHER Final R esult documented in this encounter Visit Diagnoses Not on filedocumented in this encounter Care Teams Field Contact Person Relationship Specialty Start Date End Date Dane Sullivan DO PCP - General 04/17/16 05/03/16 documented as of this encounter
--- OUTSIDE RECORDS SUMMARY | 2024-11-12 04:49 | XMS_ITS | Encounter Summary ---
Author Organization [facility] Address [address] [facility]. [place], [place] [address] [place] [address] Care Team Providers Care Explosives Engineer Name Role Phone Dane Sullivan DO Primary Care Provider + [phone] Asa Mcanmara MD Unavailable [phone] Deisi Andrews MD Primary Care Provider [phone] Heber Adorno MD Primary Care Provider Unavailable Dane Sullivan DO Primary Care Provider + [phone] Dane Sullivan DO Primary Care Provider + [phone] Dane Sullivan DO Primary Care Provider [phone] Deisi Andrews MD Primary Care Provider [phone] Encounter Details Date Type Department Care Team (Late st Contact Info) Description 04/14/2016 Abstract [facility] [address] [place] [address] Carlin Jaquez, WILFREDO [address] [place] [address] Social History Tobacco Use Types Packs/Day Years Used Date Smoking Tobacco: Never Assessed Comments Unknown Sex and Gender Information Value Date Recorded Sex Assigned at Female 12/06/2019 3:36 PM CATTLE STICKER Legal Sex Female 5:20 PM CDT Gender Identity Female 12/06/2019 3:36 PM CATTLE STICKER Sexual Orientation Straight 12/06/2019 3: 36 PM CATTLE STICKER documented as of this encounter Plan of Treatment Not on file documented as of this encounter Visit Diagnoses Diagnosis Soft tissue disorder Disorders of soft tissue, unspecified documented in this encounter Care Teams Explosives Engineer Relationship Specialty Start Date End Date Dane Sullivan DO PCP - General FAMILY PRACTICE 05/15/16 02/11/17 Deisi Andrews MD [address] [place] [address] PCP - General FAMILY PRACTICE 02/13/17 03/10/17 Heber Adorno MD PCP - General 03/11/17 06/14/17 Dane Sullivan DO PCP - General 05/04/16 05/14/16 Dane Sullivan DO PCP - General 04/17/16 05/03/16 Dane Sullivan DO PCP - General 03/26/16 04/16/16 Deisi Andrews MD [address] [place] [address] PCP - General FAMILY PRACTICE 06/15/17 10/14/19 Asa Mcnamara MD [facility]. [facility] [address] [place] [address] Emma Skewer Up CARDIOVASCULAR DISEASE 05/15/16 documented as of this encounter
--- OUTSIDE RECORDS SUMMARY | 2024-11-12 04:49 | XMS_ITS | Encounter Summary ---
Author Organization [facility] Address [address] [facility] [place] [address] [place] [address] Care Team Providers Care Hook Up Name Role Phone Dane Sullivan Primary Care Provider [phone] Asa Mcnamara MD Unavailable [phone] Encounter Details Date Type Department Care Team (Late st Contact Info) Description 07/01/2016 ENGINEER SYSTEM ADMINISTRATOR ONLY [facility] AT [facility] [address] [place] [address] Asa Mcnamara MD [address] [place] [address] Social History Tobacco Use Types Packs/Day Years Used Date Smoking Tobacco: Every Day Cigarettes Smokeless Tobacco: Never Alcohol Use Standard Drinks/Week Comments No 0 (1 standard drink = 0.6 oz pur e alcohol) Comments Unknown Sex and Gender Information Value Date Recorded Sex Assigned at Female 12/06/2019 3:36 PM PAPER REWINDER OPERATOR Legal Sex Female 5:20 PM CDT Gender Identity Female 12/06/2019 3:36 PM PAPER REWINDER OPERATOR Sexual Orientation Straight 12/06/2019 3: 36 PM PAPER REWINDER OPERATOR 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 CASUALTY CLAIM ADJUSTER: GANGA GARCIA MD INDICATIONS: 1. Lifestyle limiting intermittent claudication. 2. Bilateral iliac disease. PROCEDURE: The patient was prepped and draped using aseptic techniques. Both groins were anesthetized using 1% lidocaine. Using ultrasound guidance, the right common femoral artery was cannulated. A 5-Macedonian sheath was placed. A J-tipped wire was advanced into the aorta. A crossover catheter was advanced over this wire. The left common iliac artery was cannulated. Angiogram was performed which was subsequently used as roadmap to cannulate the left common femoral artery. A 7-Macedonian 23 cm sheath was placed in the left femoral artery. The crossover catheter was now exchanged for a 5-Macedonian pigtail catheter. Aortogram was performed in the [...] artery. Heparin was used for anticoagulation. The 5-Macedonian sheath was exchanged for a 7-Macedonian sheath in the right femoral artery. The [...] adequately treated, the guidewires were removed. The 7-Macedonian sheath was secured to the skin. The [...] 07/03/2016 05:55 P ASA MCNAMARA M.D. A #[id number] P/ma cc: Michelle ISLAS D.O. documented in this encounter Plan of Treatment Not on file documented as of this encounter Visit Diagnoses Not on filedocumented in this encounter Care Teams Hook Up Relationship Specialty Start Date End Date Dane Sullivan DO PCP - General FAMILY PRACTICE 05/15/16 02/11/17 Asa Mcnamara MD [facility]. [address] [place] [address] Stephen Coal Digger CARDIOVASCULAR DISEASE 05/15/16 documented as of this encounter
--- OUTSIDE RECORDS SUMMARY | 2024-11-12 04:49 | XMS_ITS | Encounter Summary ---
Author Organization [facility] Address [facility]. [place], [place] [address] [place] [address] Care Team Providers Care Roll Trucker Name Role Phone Dane Sullivan DO Primary Care Provider [phone] Asa Mcnamara MD Unavailable [phone] Reason for Visit * Reason Comments Vascular Lab Study (SCAN) Encounter Details Date Type Department Care Team (Late st Contact Info) Description 07/01/2016 Scan [facility] [address] [place] [phone] Scanned, Documents Vascular Lab Study (SCAN) Social History Tobacco Use Types Packs/Day Years Used Date Smoking Tobacco: Every Day Cigarettes Smokeless Tobacco: Never Alcohol Use Standard Drinks/Week Comments No 0 (1 standard drink = 0.6 oz pur e alcohol) Comments Unknown Sex and Gender Information Value Date Recorded Sex Assigned at Female 12/06/2019 3:36 PM HORSER UP Legal Sex Female 5:20 PM CDT Gender Identity Female 12/06/2019 3:36 PM HORSER UP Sexual Orientation Straight 12/06/2019 3: 36 PM HORSER UP 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 Not on file Not on file documented as of this encounter Plan of Treatment Not on file documented as of this encounter Procedures Procedure Name Priority Date/Time Associated Diagnosis Comments VASCULAR LAB GENERIC (SCAN ORDER) Routine 01/14/2017 11:51 AM HORSER UP documented in this encounter Results * VASCULAR LAB (01/14/2017 11:51 AM HORSER UP) us Documents Scanned SCANNING Final Result documented in this encounter Visit Diagnoses Not on filedocumented in this encounter Care Teams Roll Trucker Relationship Specialty Start Date End Date Dane Sullivan DO PCP - General FAMILY PRACTICE 05/15/16 02/11/17 Asa Mcnamara MD [facility] [address] [place] [address] [place] Industrial Hygiene Technician CARDIOVASCULAR DISEASE 05/15/16 documented as of this encounter
--- OUTSIDE RECORDS SUMMARY | 2024-11-12 04:49 | XMS_ITS | Encounter Summary ---
Author Organization [facility] Address [facility] [facility] [place], [place] [address] [place] [address] Care Team Providers Care Data Analysis Manager Name Role Phone Dane Sullivan DO Primary Care Provider [phone] Asa Mcnamara MD Unavailable [phone] Deisi Andrews MD Primary Care Provider [phone] Heber Adorno MD Primary Care Provider Unavailable Deisi Andrews MD Primary Care Provider [phone] Encounter Details Date Type Department Care Team (Latest Contact Info) Description 06/04/2016 Abstract [facility] Heber Adorno MD Social History Tobacco Use Types Packs/Day Years Used Date Smoking Tobacco: Every Day Cigarettes Smokeless Tobacco: Never Alcohol Use Standard Drinks/Week Comments No 0 (1 standard drink = 0.6 oz pur e alcohol) Comments Unknown Sex and Gender Information Value Date Recorded Sex Assigned at Female 12/06/2019 3:36 PM FRONT OFFICE JAVA DEVELOPER Legal Sex Female 5:20 PM CDT Gender Identity Female 12/06/2019 3:36 PM FRONT OFFICE JAVA DEVELOPER Sexual Orientation Straight 12/06/2019 3: 36 PM FRONT OFFICE JAVA DEVELOPER 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 [place] [address] Patient: RODY CRUZ [facility] Rec#: [id number] Birthdate: 1960 Admit/Svce Date: 06/04/2016 Disch Date: Attending Md: ASA MCNAMARA MD CHART DOCUMENT PREOPERATIVE DIAGNOSIS: POSTOPERATIVE DIAGNOSIS: SURGERY PERFORMED DATE 06/04/2016 SURGEON: ASA MCNAMARA M.D. TYPISTS SUPERVISOR: INDICATION: 1. Lifestyle limiting intermittent claudication. 2. Moderately reduced KENZIE in the right leg. PROCEDURE: The patient was prepped and draped using aseptic techniques. The left one was anesthetized using 1% lidocaine. Using ultrasound guidance, the left common femoral artery was cannulated. A 5-Latvian sheath was placed. An Omni Flush catheter was advanced into the abdominal aorta. Aortogram was performed in the AP projection. The catheter was pulled back to just above the aortic bifurcation. Iliac angiograms were performed in orthogonal views. Using a J-tipped wire, this catheter was exchanged for a 5-Latvian crossover catheter. The right common iliac artery [...] 06/05/2016 05:20 P ASA MCNAMARA M.D. A #[id number] P/ma cc: Michelle ISLAS D.O. documented in this encounter Plan of Treatment Not on file documented as of this encounter Visit Diagnoses Not on filedocumented in this encounter Care Teams Data Analysis Manager Relationship Specialty Start Date End Date Dane Sullivan DO PCP - General FAMILY PRACTICE 05/15/16 02/11/17 Deisi Andrews MD [address] [place] [address] [place] [address] PCP - General FAMILY PRACTICE 02/13/17 03/10/17 Heber Adorno MD PCP - General 03/11/17 06/14/17 Deisi Andrews MD [address] [place] [address] [place] [address] PCP - General FAMILY PRACTICE 06/15/17 10/14/19 Asa Mcnamara MD [facility]. [facility] [address] [place] [address] [place] Cigar Brander CARDIOVASCULAR DISEASE 05/15/16 documented as of this encounter
--- OUTSIDE RECORDS SUMMARY | 2024-11-12 04:49 | XMS_ITS | Encounter Summary ---
Author Organization [facility] Address [address] [facility]. [place], [place] [address] [place] [address] Care Team Providers Care Adhesive Bandage Making Operator Name Role Phone Dane Sullivan DO Primary Care Provider + [phone] Dane Sullivan DO Primary Care Provider [phone] Encounter Details Date Type Department Care Team (Late st Contact Info) Description 04/08/2016 [facility] [address] [place] [address] , Heber Trinidad MD Social History Tobacco Use Types Packs/Day Years Used Date Smoking Tobacco: Never Assessed Comments Unknown Sex and Gender Information Value Date Recorded Sex Assigned at Female 12/06/2019 3:36 PM BUILDING EQUIPMENT INSPECTOR Legal Sex Female 5:20 PM CDT Gender Identity Female 12/06/2019 3:36 PM BUILDING EQUIPMENT INSPECTOR Sexual Orientation Straight 12/06/2019 3: 36 PM BUILDING EQUIPMENT INSPECTOR documented as of this encounter Plan of Treatment Not on file documented as of this encounter Visit Diagnoses Not on filedocumented in this encounter Care Teams Adhesive Bandage Making Operator Relationship Specialty Start Date End Date Dane Sullivan DO PCP - General 04/17/16 05/03/16 Dane Sullivan DO PCP - General 03/26/16 04/16/16 documented as of this encounter
--- OUTSIDE RECORDS SUMMARY | 2024-11-12 04:49 | XMS_ITS | Encounter Summary ---
Author Organization [facility] Address [address] [facility]. [place], [place] [address] [place] [address] Care Team Providers Care Barbed Wire Machine Operator Name Role Phone Dane Sullivan Primary Care Provider + [phone] Asa Mcnamara MD Unavailable [phone] Deisi Andrews MD Primary Care Provider [phone] Md, Generic Conversion Primary Care Provider Unavailable Deisi Andrews MD Primary Care Provider [phone] Encounter Details Date Type Department Care Team (Late st Contact Info) Description 05/25/2016 Abstract [place] [address] Asa Mcnamara MD Three [facility]. 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 RBC 4.69 4.20 - 5.40 X10'6/uL 05/25/2016 4:[address] [facility] HGB 13.0 12.0 - 16.0 g/dL 05/25/2016 4:[address] [facility] HCT 40.6 38.0 - 48.0 % 05/25/2016 4:[address] [facility] MCV 86.6 81.0 - 99.0 fL 05/25/2016 4:[address] [facility] MCH 27.7 27.0 - 31.0 pg 05/25/2016 4:[address] [facility] MCHC 32.0 32.0 - 36.0 g/dL 05/25/2016 4:[address] [facility] RDW 13.4 11.5 - 14.5 % 05/25/2016 4:[address] [facility] PLT 245 130 - 400 X10'3/uL 05/25/2016 4:[address] [facility] MPV 10.2 9.3 - 12.2 fL 05/25/2016 4:[address] [facility] DIFFERENTIAL TYPE AUTOMATED 05/25/2016 4:[address] [facility] NEUTROPHILS % 63.3 43.0 - 65.0 % 05/25/2016 4:[address] [facility] LYMPHOCYTES % 24.9 20.0 - 46.0 % 05/25/2016 4:[address] [facility] MONOCYTES % 8.0 5.0 - 12.0 % 05/25/2016 4:[address] [facility] EOSINOPHILS 3.0 1.0 - 3.0 % 05/25/2016 4:[address] [facility] BASOPHILS 0.4 0.0 - 1.0 % 05/25/2016 4:[address] [facility] IMMATURE GRANS % 0.4 0.0 - 1.0 % 05/25/2016 4:[address] [facility] 05/25/2016 12:3 0 PM CDT 05/25/2016 4:38 PM CDT us Generic Conversion Md [facility] Final R esult [facility] [address] [place] [address], * (ABNORMAL) BASIC METABOLIC PANEL (05/25/2016 12:30 PM CDT) GLUCOSE 105(H) 70 - 99 mg/dL 05/25/2016 6:[address] [facility] BUN 16 8 - 23 mg/dL 05/25/2016 6:[address] [facility] CREATININE S/P/B 0.65 0.60 - 1.10 mg/dL 05/25/2016 6:[address] [facility] SODIUM S/P/B 140 136 - 145 mmol/L 05/25/2016 6:[address] [facility] POTASSIUM S/P/B 4.4 3.5 - 5.1 mmol/L 05/25/2016 6:[address] [facility] CHLORIDE S/P/B 102 98 - 107 mmol/L 05/25/2016 6:[address] [facility] CO2 23 22 - 29 mmol/L 05/25/2016 6:[address] [facility] CALCIUM S/P/B 9.2 8.6 - 10.2 mg/dL 05/25/2016 6:[address] [facility] ANION GAP 19 8 - 20 05/25/2016 6:[address] [facility] EGFR NON-AFR. AMER. >60 >60 mL/min/1.7 3m'2 05/25/2016 6:[address] [facility] EGFR AFR. AMER. >60 >60 mL/min/1.7 3m'2 05/25/2016 6:[address] [facility] Comment: NOTE: eGFR is not calculated for patients <18 years of age. This is an estimated GFR (CKD EPI) and should not be used for calculating drug doses. 05/25/2016 12:3 0 PM CDT 05/25/2016 4:38 PM CDT us Generic Conversion Md [facility] Final R esult [facility] [address] [place] [address], documented in this encounter Visit Diagnoses Diagnosis Encounter for other preprocedural examination documented in this encounter Care Teams Barbed Wire Machine Operator Relationship Specialty Start Date End Date Dane Sullivan DO PCP - General FAMILY PRACTICE 05/15/16 02/11/17 Deisi Andrews MD [address] [place] [address] PCP - General FAMILY PRACTICE 02/13/17 03/10/17 Heber Huynh MD PCP - General 03/11/17 06/14/17 Deisi Andrews MD [address] [place] [address] PCP - General FAMILY PRACTICE 06/15/17 10/14/19 Asa Mcnamara MD [facility] [address] [place] [address] [place] [employer] Shoemaker CARDIOVASCULAR DISEASE 05/15/16 documented as of this encounter
--- OUTSIDE RECORDS SUMMARY | 2024-11-12 04:49 | XMS_ITS | Encounter Summary ---
Author Organization [facility] Address [address] [facility] [place] [address] [place] [address] Care Team Providers Care Cyber Forensics Analyst Name Role Phone Dane Sullivan Primary Care Provider [phone] Asa Mcnamara MD Unavailable [phone] Reason for Visit * Reason Comments Follow Up testing Chest Pain Claudication Encounter Details Date Type Department Care Team (Late st Contact Info) Description 05/20/2016 2:00 PM CDT Office Visit [facility] [address] [address] Asa Mcnamara MD [address] [address] Follow Up (testing); Chest Pain; Claudication Social History Tobacco Use Types Packs/Day Years Used Date Smoking Tobacco: Every Day Cigarettes Smokeless Tobacco: Never Alcohol Use Standard Drinks/Week Comments No 0 (1 standard drink = 0.6 oz pur e alcohol) Comments Unknown Sex and Gender Information Value Date Recorded Sex Assigned at Female 12/06/2019 3:36 PM SPREADING 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 Legal Sex Female 5:20 PM CDT Gender Identity Female 12/06/2019 3:36 PM SPREADING 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 Sexual Orientation Straight 12/06/2019 3: 36 PM SPREADING 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 Not on file Not on file documented as of this encounter Last Filed Vital Signs Vital Sign Reading Time Taken Comments Blood Pressure 122/80 05/20/2016 1:43 PM CDT ret aken by Pulse 88 05/20/2016 12:46 PM CDT Temperature - - Respiratory Rate - - Oxygen Saturation - - Inhaled Oxygen Concentration - - Weight 101.6 kg (224 lb) 05/20/2016 12:46 PM CDT Height 160 cm (5' 3 ) 05/20/2016 12:46 PM CDT Body Mass Index 39.68 05/20/2016 12:46 PM CDT documented in this encounter Progress Notes * Asa Mcnamara MD - 05/20/2016 1:35 PM CDT Chief Complaint: Follow Up - testing; Chest Pain; and Claudication Recommendations/Plan: ASSESSMENT: 1. Atypical chest pain. 2. Lifestyle limiting intermittent claudication. 3. Dyspnea on exertion. 4. Bilateral carotid artery disease, left carotid endarterectomy in 2014. 5. History of stroke. 6. Hypertension, overall, well controlled. 7. Dyslipidemia on statin. 8. Type II diabetes mellitus. 9. [id number] history of smoking. 10. Likely COPD. 11. Bilateral knee arthritis, possible surgery in near future. . RECOMMENDATION/PLAN: Chest pain is atypical. Recent stress test shows normal myocardial perfusion and normal EF. We willcontinue with risk factor modification. Continue aspirin. I have advised her to lower dose to 81 mgdaily. She reports easy bruising. Ms. Zaidi reports [...] It is my pleasure to participate in Jessica care. Further recommendations will be based on findings of vascular angiogram. Thank you for the consultation. History of Present Illness: Ms. Zaidi is a pleasant 55-year-old female. She has history of type II diabetes mellitus, hypertension, dyslipidemia and [id number] history of smoking. She returns for scheduled [...] leg is more symptomatic. She complains of painin her right hip and calf muscles after [...] flow limiting lesions. Medications: Current Outpatient Prescriptions: ??? aspirin 81 MG tablet, Take 1 tablet (81 mg total) by mouth daily., Disp: , Rfl: ??? cilostazol 50 MG tablet, Take 1 tablet (50 mg total) by mouth 2 (two) times daily., Disp: 60 tablet, Rfl: 2 ??? albuterol sulfate HFA (VENTOLIN HFA) 108 (90 BASE) MCG/ACT inhaler, Take 1 tablet by mouth daily., Disp: , Rfl: ??? ALPRAZolam (XANAX) 1 MG tablet, take 1 tablet by mouth three times a day, Disp: , Rfl: ??? amlodipine 5 MG tablet, Take 1 tablet by mouth daily., Disp: , Rfl: ??? beclomethasone (QVAR) 40 MCG/ACT inhaler, 2 (two) times daily. twice a day, Disp: , Rfl: ??? fexofenadine (SAMANTHA ALLERGY) [...] times a day, Disp: , Rfl: ??? isosorbide mononitrate ER (IMDUR) 30 MG 24 [...] by mouth daily., Disp: , Rfl: ??? zolpidem (AMBIEN) 10 MG tablet, Ambien (zolpidem) tablet ; as directed; 0; -Mar-2016; Active,Disp: , Rfl: Allergies Allergen Reactions ??? Haloperidol Other (see comment) ??? Penicillins Redness ??? Resperal-Dm [[id number]-[id number] [id number]] Unknown Past Medical History Diagnosis Date ??? Arthritis ??? Asthma ??? Chest pain, unspecified ??? Diabetes ??? Emphysema/COPD ??? Essential (primary) hypertension ??? GERD (gastroesophageal reflux disease) ??? Hypercholesterolemia ??? Migraines ??? PVD (peripheral vascular disease) ??? Stroke h/o Past Surgical History Procedure Laterality Date ??? Gallbladder surgery 2006 removal ??? section 1989 ??? Tubal ligation 1989 ??? Other procedure 2011 warts removed ??? Other procedure 2013 tube in left ear History Social History ??? Marital status: Single Spouse name: N/A ??? Number of children: 2 ??? 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 Smoking status: Current Every Day Smoker Packs/day: 0.50 Types: Cigarettes ??? Smokeless tobacco: Never Used ??? Alcohol use: No ??? Drug use: Yes Special: Marijuana ??? Sexual activity: Not on file Other Topics Concern ??? Caffeine Concern Yes coffee 4x a day Social History Narrative ??? None Family History Problem Relation Age of [...] present.Exam reveals no gallop. No murmur heard. Femoral [...] activity and Recommended eating a balanced diet. documented in this encounter Plan of Treatment Not on file documented as of this encounter Results * (ABNORMAL) BASIC METABOLIC PANEL (05/25/2016 12:30 PM CDT) GLUCOSE 105(H) 70 - 99 mg/dL [facility] BUN 16 8 - 23 mg/dL [facility] CREATININE S/P/B 0.65 0.60 - 1.10 mg/dL [facility] SODIUM S/P/B 140 136 - 145 mmol/L [facility] POTASSIUM S/P/B 4.4 3.5 - 5.1 mmol/L [facility] CHLORIDE S/P/B 102 98 - 107 mmol/L [facility] CO2 23 22 - 29 mmol/L [facility] CALCIUM S/P/B 9.2 8.6 - 10.2 mg/dL [facility] ANION GAP 19 8 - 20 [facility] EGFR NON-AFR. AMER. >60 >60 mL/min/1.7 3m'2 [facility] EGFR AFR. AMER. >60 >60 mL/min/1.7 3m'2 [facility] Comment: NOTE: eGFR is not calculated for patients <18 years of age. This is an estimated GFR (CKD EPI) and should not be used for calculating drug doses. 05/25/2016 12:3 0 PM CDT 05/25/2016 4:38 PM CDT us Asa Mcnamara MD LABORATORY Final Result [facility] [address] [place] [address], [place] [phone] * (ABNORMAL) CBC W/DIFF AUTOMATED (05/25/2016 12:30 PM CDT) WBC 11.6(H) 4.8 - 10.8 X10'3/uL [facility] RBC 4.69 4.20 - 5.40 X10'6/uL [facility] HGB 13.0 12.0 - 16.0 g/dL [facility] HCT 40.6 38.0 - 48.0 % [facility] MCV 86.6 81.0 - 99.0 fL [facility] MCH 27.7 27.0 - 31.0 pg [facility] MCHC 32.0 32.0 - 36.0 g/dL [facility] RDW 13.4 11.5 - 14.5 % [facility] PLT 245 130 - 400 X10'3/uL [facility] MPV 10.2 9.3 - 12.2 fL [facility] DIFFERENTIAL TYPE AUTOMATED [facility] NEUTROPHILS % 63.3 43.0 - 65.0 % [facility] LYMPHOCYTES % 24.9 20.0 - 46.0 % [facility] MONOCYTES % 8.0 5.0 - 12.0 % [facility] EOSINOPHILS 3.0 1.0 - 3.0 % [facility] BASOPHILS 0.4 0.0 - 1.0 % [facility] IMMATURE GRANS % 0.4 0.0 - 1.0 % [facility] 05/25/2016 12:3 0 PM CDT 05/25/2016 4:38 PM CDT us Asa Mcnamara MD LABORATORY Final Result [facility] [address] [place], [place] [address] [phone] documented in this encounter Visit Diagnoses Diagnosis Preoperative testing- Primary Preoperative examination, unspecified PVD (peripheral vascular disease) (CMS/HCC) Peripheral vascular disease, unspecified Claudication (CMS/HCC) Peripheral vascular disease, unspecified HTN (hypertension) Unspecified essential hypertension documented in this encounter Care Teams Cyber Forensics Analyst Relationship Specialty Start Date End Date Dane Sullivan DO PCP - General FAMILY PRACTICE 05/15/16 02/11/17 Asa Mcnamara MD [address] [place] [address] Stephen Lead Java Developer Architect CARDIOVASCULAR DISEASE 05/15/16 documented as of this encounter
--- OUTSIDE RECORDS SUMMARY | 2024-11-12 04:49 | XMS_ITS | Encounter Summary ---
Author Organization [facility] Address [facility]. [place], [place] [address] [place] [address] Care Team Providers Care Life Consultant Name Role Phone SullivanDane rowley Gricel FLORES Primary Care Provider [phone] Asa Mcnamara MD Unavailable [phone] Deisi Andrews MD Primary Care Provider [phone] Heber Adorno MD Primary Care Provider Unavailable Deisi Andrews MD Primary Care Provider [phone] Encounter Details Date Type Department Care Team (Late st Contact Info) Description 06/25/2016 Abstract [facility] [place], [place] [id number] Lorelei Norton MD Three [facility] [address] [place], [place] [id number] Social History Tobacco Use Types Packs/Day Years Used Date Smoking Tobacco: Every Day Cigarettes Smokeless Tobacco: Never Alcohol Use Standard Drinks/Week Comments No 0 (1 standard drink = 0.6 oz pur e alcohol) Comments Unknown Sex and Gender Information Value Date Recorded Sex Assigned at Female 12/06/2019 3:36 PM CENTER REP Legal Sex Female 5:20 PM CDT Gender Identity Female 12/06/2019 3:36 PM CENTER REP Sexual Orientation Straight 12/06/2019 3: 36 PM CENTER REP 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 Not on file Not on file documented as of this encounter Plan of Treatment Not on file documented as of this encounter Procedures Procedure Name Priority Date/Time Associated Diagnosis Comments POCT GLUCOSE - TEMPLE DOCKED DEVICE Routine 06/25/2016 11:29 AM CDT documented in this encounter Results * (ABNORMAL) POCT glucose (06/25/2016 11:29 AM CDT) GLUCOSE POC 145(H) 70 - 99 mg/dL 06/25/2016 11:31 AM CDT [facility] INTERFACE 06/25/2016 11:2 9 AM CDT 06/25/2016 11:31 AM CDT us Generic Vivi Adorno MD POCT ORDERABLES - DEVIC E Final Result Performing Organization Address City/State/[facility] Co de Phone Number [facility] INTERFACE US documented in this encounter Visit Diagnoses Diagnosis Primary osteoarthritis of both knees Primary localized osteoarthrosis, lower leg documented in this encounter Care Teams Life Consultant Relationship Specialty Start Date End Date Dane Sullivan DO PCP - General FAMILY PRACTICE 05/15/16 02/11/17 Deisi Andrews MD [address] [place] [address] PCP - General FAMILY PRACTICE 02/13/17 03/10/17 Heber Adorno MD PCP - General 03/11/17 06/14/17 Deisi Andrews MD [address] [place] [address] PCP - General FAMILY PRACTICE 06/15/17 10/14/19 Asa Mcnamara MD [address] [address] Stephen Aviation Maintenance Instructor CARDIOVASCULAR DISEASE 05/15/16 documented as of this encounter
--- OUTSIDE RECORDS SUMMARY | 2024-11-12 04:49 | XMS_ITS | Encounter Summary ---
Author Organization [facility] Address [facility] [place] [address] [place] [address] Care Team Providers Care Powerhouse Laborer Name Role Phone Dane Sullivan Primary Care Provider [phone] Asa Mcnamara MD Unavailable [phone] Reason for Visit * Reason Onset Date Comments Procedure 06/05/2016 Encounter Details Date Type Department Care Team (Late st Contact Info) Description 06/05/2016 Telephone [facility] [address] [address] Asa Mcnamara MD [address] [address] Procedure Social History Tobacco Use Types Packs/Day Years Used Date Smoking Tobacco: Every Day Cigarettes Smokeless Tobacco: Never Alcohol Use Standard Drinks/Week Comments No 0 (1 standard drink = 0.6 oz pur e alcohol) Comments Unknown Sex and Gender Information Value Date Recorded Sex Assigned at Female 12/06/2019 3:36 PM FIELD CONTACT PERSON Legal Sex Female 5:20 PM CDT Gender Identity Female 12/06/2019 3:36 PM FIELD CONTACT PERSON Sexual Orientation Straight 12/06/2019 3: 36 PM FIELD CONTACT PERSON 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 Mcnamara has recommended she be scheduled for peripheral intervention on 07/01/16. Procedure is scheduled for 07/01/16 @ 8 am, arrival time @ 7 am with pretesting on arrival. Cancell 06/22/16 f/u visit with Dr. Mcnamara. Instructions mailed to patient. She verbally understands and had no further questions. documented in this encounter Plan of Treatment Not on file documented as of this encounter Visit Diagnoses Not on filedocumented in this encounter Care Teams Powerhouse Laborer Relationship Specialty Start Date End Date Dane Sullivan DO PCP - General FAMILY PRACTICE 05/15/16 02/11/17 Asa Mcnamara MD [facility] [address] [place] [address] [place] Protection Officer CARDIOVASCULAR DISEASE 05/15/16 documented as of this encounter
--- OUTSIDE RECORDS SUMMARY | 2024-11-12 04:49 | XMS_ITS | Encounter Summary ---
Author Organization [facility] Address [facility] [place], [place] [address] [place] [address] Care Team Providers Care Datastage Developer Name Role Phone Dane Sullivan DO Primary Care Provider [phone] Asa Mcnamara MD Unavailable [phone] Deisi Andrews MD Primary Care Provider [phone] Heber Adorno MD Primary Care Provider Unavailable Deisi Andrews MD Primary Care Provider [phone] Encounter Details Date Type Department Care Team (Latest Contact Info) Description 06/02/2016 Abstract [facility] Social History Tobacco Use Types Packs/Day Years Used Date Smoking Tobacco: Every Day Cigarettes Smokeless Tobacco: Never Alcohol Use Standard Drinks/Week Comments No 0 (1 standard drink = 0.6 oz pur e alcohol) Comments Unknown Sex and Gender Information Value Date Recorded Sex Assigned at Female 12/06/2019 3:36 PM WELL PULLER Legal Sex Female 5:20 PM CDT Gender Identity Female 12/06/2019 3:36 PM WELL PULLER Sexual Orientation Straight 12/06/2019 3: 36 PM WELL PULLER 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 Not on file Not on file documented as of this encounter Plan of Treatment Not on file documented as of this encounter Visit Diagnoses Not on filedocumented in this encounter Care Teams Datastage Developer Relationship Specialty Start Date End Date Dane Sullivan DO PCP - General FAMILY PRACTICE 05/15/16 02/11/17 Deisi Andrews MD [address] [place] [address] PCP - General FAMILY PRACTICE 02/13/17 03/10/17 Heber Adorno MD PCP - General 03/11/17 06/14/17 Deisi Andrews MD [address] [place] [address] PCP - General FAMILY PRACTICE 06/15/17 10/14/19 Asa Mcnamara MD [facility] [address] [place] [address] [place] Lode Miner CARDIOVASCULAR DISEASE 05/15/16 documented as of this encounter
--- OUTSIDE RECORDS SUMMARY | 2024-11-12 04:49 | XMS_ITS | Encounter Summary ---
Author Organization [facility] Address [address] [facility]. [place], [place] [address] [place] [address] Care Team Providers Care Government Relations Manager Name Role Phone Dane Sullivan DO Primary Care Provider + [phone] Asa Mcnamara MD Unavailable [phone] Deisi Andrews MD Primary Care Provider [phone] Heber Huynh MD Primary Care Provider Unavailable Dane Sullivan DO Primary Care Provider + [phone] Dane Sullivan DO Primary Care Provider + [phone] Dane Sullivan DO Primary Care Provider + [phone] Deisi Andrews MD Primary Care Provider [phone] Encounter Details Date Type Department Care Team (Late st Contact Info) Description 03/26/[address] [facility] [place] [address] Dane Sullivan DO [address] [id number] Social History Tobacco Use Types Packs/Day Years Used Date Smoking Tobacco: Never Assessed Comments Unknown Sex and Gender Information Value Date Recorded Sex Assigned at Female 12/06/2019 3:36 PM MEDICAL DATA ENTRY CLERK Legal Sex Female 5:20 PM CDT Gender Identity Female 12/06/2019 3:36 PM MEDICAL DATA ENTRY CLERK Sexual Orientation Straight 12/06/2019 3: 36 PM MEDICAL DATA ENTRY CLERK documented as of this encounter Plan of Treatment Not on file documented as of this encounter Procedures Procedure Name Priority Date/Time Associated Diagnosis Comments TSH W/REFLEX Routine 03/26/2016 10:15 AM CDT COMPREHENSIVE METABOLIC PANEL Routine 03/26/2016 10:15 AM CDT CBC W/DIFF AUTOMATED Routine 03/26/2016 10:15 AM CDT documented in this encounter Results * TSH W/REFLEX (SNS) (03/26/2016 10:15 AM CDT) TSH 1.81 0.27 - 4.20 mIU/mL 03/26/2016 11:08 PM CDT [facility] Comment:FREE T4 NOT INDICATE D SERUM OR PLASMA SPECIMEN / Unknown 03/26/2016 10:15 AM CDT 03/26/2016 10:41 PM CDT us Generic Conversion Md [facility] Final R esult [facility] [address] [place] [address], * (ABNORMAL) COMPREHENSIVE METABOLIC PANEL (03/26/2016 10:15 AM CDT) GLUCOSE 135(H) 70 - 99 mg/dL 03/26/2016 11:08 PM CDT [facility] BUN 12 8 - 23 mg/dL 03/26/2016 11:08 PM CDT [facility] CREATININE S/P/B 0.70 0.60 - 1.10 mg/dL 03/26/2016 11:08 PM CDT [facility] SODIUM S/P/B 142 136 - 145 mmol/L 03/26/2016 11:08 PM CDT [facility] POTASSIUM S/P/B 4.1 3.5 - 5.1 mmol/L 03/26/2016 11:08 PM CDT [facility] CHLORIDE S/P/B 103 98 - 107 mmol/L 03/26/2016 11:08 PM CDT [facility] CO2 25 22 - 29 mmol/L 03/26/2016 11:08 PM CDT [facility] BILIRUBIN TOTAL S/P/B 0.3 0.2 - 1.2 mg/dL 03/26/2016 11:08 PM CDT [facility] CALCIUM S/P/B 9.3 8.6 - 10.2 mg/dL 03/26/2016 11:08 PM CDT [facility] ALKALINE PHOSPHATASE S/P/B 132(H) 35 - 104 IU/L 03/26/2016 11:08 PM CDT [facility] AST 18 0 - 32 IU/L 03/26/2016 11:08 PM CDT [facility] TOTAL PROTEIN S/P/B 7.4 6.4 - 8.3 g/dL 03/26/2016 11:08 PM CDT [facility] ALBUMIN S/P/B 4.5 3.5 - 5.2 g/dL 03/26/2016 11:08 PM CDT [facility] ALT 32 0 - 33 IU/L 03/26/2016 11:08 PM T [facility] GLOBULIN 2.9 2.3 - 3.6 g/dL 03/26/2016 11:08 PM T [facility] A/G RATIO 1.6 1.0 - 2.0 03/26/2016 11:08 PM CDT [facility] ANION GAP 18 8 - 20 03/26/2016 11:08 PM CDT [facility] EGFR NON-AFR. AMER. >60 >60 mL/min/1.7 [facility] 03/26/2016 11:08 PM CDT [facility] EGFR AFR. AMER. >60 >60 mL/min/1.7 [facility] 03/26/2016 11:08 PM CDT [facility] Comment: NOTE: eGFR is not calculated for patients <18 years of age. This is an estimated GFR (CKD EPI) and should not be used for calculating drug doses. 03/26/2016 10:1 5 AM CDT 03/26/2016 10:41 PM CDT us Generic Conversion Md [facility] Final R esult [facility] [address] [place] [address], * (ABNORMAL) CBC W/DIFF AUTOMATED (03/26/2016 10:15 AM CDT) WBC 10.1 4.8 - 10.8 X10'3/uL 03/26/2016 11:02 PM CDT [facility] RBC 5.14 4.20 - 5.40 X10'6/uL 03/26/2016 11:02 PM CDT [facility] HGB 14.4 12.0 - 16.0 g/dL 03/26/2016 11:02 PM CDT [facility] HCT 45.4 38.0 - 48.0 % 03/26/2016 11:02 PM CDT [facility] MCV 88.3 81.0 - 99.0 fL 03/26/2016 11:02 PM CDT [facility] MCH 28.0 27.0 - 31.0 pg 03/26/2016 11:02 PM CDT [facility] MCHC 31.7(L) 32.0 - 36.0 g/dL 03/26/2016 11:02 PM CDT [facility] RDW 13.8 11.5 - 14.5 % 03/26/2016 11:02 PM CDT [facility] PLT 236 130 - 400 X10'3/uL 03/26/2016 11:02 PM CDT [facility] MPV 10.3 9.3 - 12.2 fL 03/26/2016 11:02 PM CDT [facility] DIFFERENTIAL TYPE AUTOMATED 03/26/2016 11:02 PM CDT [facility] NEUTROPHILS % 69.0(H) 43.0 - 65.0 % 03/26/2016 11:02 PM CDT [facility] LYMPHOCYTES % 21.9 20.0 - 46.0 % 03/26/2016 11:02 PM CDT [facility] MONOCYTES % 5.7 5.0 - 12.0 % 03/26/2016 11:02 PM CDT [facility] EOSINOPHILS 2.4 1.0 - 3.0 % 03/26/2016 11:02 PM CDT [facility] BASOPHILS 0.5 0.0 - 1.0 % 03/26/2016 11:02 PM CDT [facility] IMMATURE GRANS % 0.5 0.0 - 1.0 % 03/26/2016 11:02 PM CDT [facility] 03/26/2016 10:1 5 AM CDT 03/26/2016 10:41 PM CDT us Generic Conversion Md [facility] Final R esult [facility] [address] [place] [address], documented in this encounter Visit Diagnoses Diagnosis Hyperlipidemia Other and unspecified hyperlipidemia documented in this encounter Care Teams Government Relations Manager Relationship Specialty Start Date End Date Dane Sullivan DO PCP - General FAMILY PRACTICE 05/15/16 02/11/17 Deisi Andrews MD [address] [place] [address] PCP - General FAMILY PRACTICE 02/13/17 03/10/17 Heber Huynh MD PCP - General 03/11/17 06/14/17 Dane Sullivan DO PCP - General 05/04/16 05/14/16 Dane Sullivan DO PCP - General 04/17/16 05/03/16 Dane Sullivan DO PCP - General 03/26/16 04/16/16 Deisi Andrews MD [address] [place] [address] PCP - General FAMILY PRACTICE 06/15/17 10/14/19 Asa Mcnamara MD [facility]. [address] [place] [address] [employer] Special Technical Operations Officer CARDIOVASCULAR DISEASE 05/15/16 documented as of this encounter
--- OUTSIDE RECORDS SUMMARY | 2024-11-12 04:49 | XMS_ITS | Encounter Summary ---
Author Organization [facility] Address [address] [facility]. [place], [place] [address] [place] [address] Care Team Providers Care Movie Stunt Performer Name Role Phone Dane Sullivan DO Primary Care Provider + [phone] Asa Mcnamara MD Unavailable [phone] Deisi Andrews MD Primary Care Provider [phone] Heber Adorno MD Primary Care Provider Unavailable Dane Sullivan DO Primary Care Provider + [phone] Dane Sullivan DO Primary Care Provider + [phone] Deisi Andrews MD Primary Care Provider [phone] Encounter Details Date Type Department Care Team (Latest Contact Info) Description 04/20/2016 Abstract [facility] Heber Adorno MD Social History Tobacco Use Types Packs/Day Years Used Date Smoking Tobacco: Never Assessed Comments Unknown Sex and Gender Information Value Date Recorded Sex Assigned at Female 12/06/2019 3:36 PM LEVELER HELPER Legal Sex Female 5:20 PM CDT Gender Identity Female 12/06/2019 3:36 PM LEVELER HELPER Sexual Orientation Straight 12/06/2019 3: 36 PM LEVELER HELPER documented as of this encounter Procedure Notes * Dane Sullivan DO - 04/20/2016 5:30 PM CDT [place] [address] Patient: RODY CRUZ [facility] Rec#: [id number] Birthdate: 1960 Admit/Svce Date: 04/17/2016 Disch Date: Attending Md: ASA MCNAMARA MD CHART DOCUMENT MYOCARDIAL PERFUSION SCAN Pat.Name: RODY CRUZ Pat.ID: [id number] St.Date: 04/17/2016 Refer.MD: Dr. Sullivan Exam Time: 10:12:00 AM Study Type:SCOTTIE NC HT MUSCLE IMAGE SPECT MULTI Height: 62in Weight: 222lb BSA: 2 m2 Age: 2 1960,55Y Sex: FEMALE Sonogrphr: JO [place], [place] Pat. Stat.:Outpatient Reason for Study:Chest pain, Shortness of breath, Abnormal EKG, Pre-Operative Cardiovascular Examination History / Clinical:Dyslipidemia, Hypertension, Family history CAD, COPD, Smoker, PVD/PAD, Stroke/CVA/TIA, Carotid Stenosis Procedures:Nuclear Stress Test with Lexiscan Race: C Surgery: Nuclear Stress Test, Carotid Endarterectomy SUMMARY: Stress conclusion: 1. Clinically negative. 2. Electrocardiographically negative stress test for ischemia. 3. Scintigraphic images to follow. Perfusion conclusion: 1. Excellent study quality. Resting and stress motion correction was applied to images. No attenuation is noted. Prone imaging was performed. 2. Normal myocardial perfusion SPECT imaging. 3. Normal wall motion with an ejection fraction of 69%. 4. Stress test with myocardial perfusion imaging shows overall low risk for a cardiac event. FINDINGS: Protocol: Lexiscan 0.4mg was given as a rapid injection IV over a period of 10 seconds with the radiopharmaceutical injected at 20 seconds. The images were processed using the standard SPECT technique. A gated study was performed on the stress images. Impression: SPECT images demonstrate normal perfusion of normal intensity. Heart Size: The left ventricle is normal. LV Wall Motion: The LVEF is calculated to be 69%. Gated SPECT images reveal normal wall motion. Transient Ischemic Dilatation: The TID is 1.08. There is no evidence of Transient Ischemic Dilatation. STRESS: Baseline Vital Signs: Intervention: Regadenoson ECG: Sinus rhythm Peak Dose: 0.4 mg HR: 96 BP: 120/80 Stress Test Results: Max HR: 107 Target HR: 166 % Target: 64 % Max BP: 130/80 O2 sat: 96 % Max RPP: [id number] Symptoms and Complications: Terminated: Protocol completed Symptoms: Shortness of breath, Nausea Complications: None Stress ECG Interp: Sinus tachycardia, no ischemic changes Signed 04/20/2016 05:27 PM Asa Mcnamara M.D. cc: Michelle ISLAS D.O. documented in this encounter Plan of Treatment Not on file documented as of this encounter Visit Diagnoses Not on filedocumented in this encounter Care Teams Movie Stunt Performer Relationship Specialty Start Date End Date Dane Sullivan DO PCP - General FAMILY PRACTICE 05/15/16 02/11/17 Deisi Andrews MD [address] [place] [address] [place] [address] PCP - General FAMILY PRACTICE 02/13/17 03/10/17 Heber Adorno MD PCP - General 03/11/17 06/14/17 Dane Sullivan DO PCP - General 05/04/16 05/14/16 Dane Sullivan DO PCP - General 04/17/16 05/03/16 Deisi Andrews MD [address] [place] [address] [place] [address] PCP - General FAMILY PRACTICE 06/15/17 10/14/19 Asa Mcnamara MD [facility]. [facility] [address] [place] [address] Stephen Sweat Band Sewer CARDIOVASCULAR DISEASE 05/15/16 documented as of this encounter
--- OUTSIDE RECORDS SUMMARY | 2024-11-12 04:49 | XMS_ITS | Encounter Summary ---
Author Organization [facility] Address [facility]. [place], [place] [address] [place] [address] Care Team Providers Care Insurance Producer Name Role Phone Dane Sullivan Primary Care Provider + [phone] Asa Mcnamara MD Unavailable [phone] Deisi Andrews MD Primary Care Provider [phone] Heber Huynh MD Primary Care Provider Unavailable Deisi Andrews MD Primary Care Provider [phone] Encounter Details Date Type Department Care Team (Late st Contact Info) Description 06/04/2016 Abstract [facility] Textile Colorist [place], [place] [id number] Asa Mcnamara MD [facility]. [facility] [address] [place], [place] [id number] Social History Tobacco Use Types Packs/Day Years Used Date Smoking Tobacco: Every Day Cigarettes Smokeless Tobacco: Never Alcohol Use Standard Drinks/Week Comments No 0 (1 standard drink = 0.6 oz pur e alcohol) Comments Unknown Sex and Gender Information Value Date Recorded Sex Assigned at Female 12/06/2019 3:36 PM INTERNET MARKETING INTERN Legal Sex Female 5:20 PM CDT Gender Identity Female 12/06/2019 3:36 PM INTERNET MARKETING INTERN Sexual Orientation Straight 12/06/2019 3: 36 PM INTERNET MARKETING INTERN Occupation Industry Job Start Date Job End [...] CDT documented in this encounter Results * PROTIME/INR, VENOUS (06/04/2016 7:16 AM CDT) PROTIME 11.8 9.6 - 12.2 SEC 06/04/2016 7:38 AM CDT [facility] INR 1.06 06/04/2016 7:38 AM CDT [facility] Comment: Recommended INR Therapeutic Goals: ??2.0-3.0 Routine Therapy ??2.5-3.5 Mechanical Prosthetic Valves (High Risk) ??3.0-4.0 Acute [place] (to prevent Systemic Embolism) The INR is used only for patients on stable oral anticoagulant therapy. It makes no significant contribution to the diagnosis or treatment of patients whose Protime is prolonged for other reasons. 06/04/2016 7:16 AM CDT 06/04/2016 7:20 AM CDT us Generic Conversion Md [facility] Final R esult [facility] [address] [place] [address], [place] [phone] * CHORIONIC GONADOTROPINHCG QL (06/04/2016 7:16 AM CDT) PREG SCREEN-SERUM NEGATIVE 06/04/2016 7:40 AM CDT [facility] 06/04/2016 7:16 AM CDT 06/04/2016 7:20 AM CDT us Generic Conversion Md [facility] Final R esult [facility] [address] [place] [address], documented in this encounter Visit Diagnoses Diagnosis Atherosclerosis of [place] artery of right lower extremity with intermittent claudication (CMS/HCC) Atherosclerosis of [place] arteries of the extremities with intermittent claudication documented in this encounter Care Teams Insurance Producer Relationship Specialty Start Date End Date Dane Sullivan DO PCP - General FAMILY PRACTICE 05/15/16 02/11/17 Deisi Andrews MD [address] [place] [address] PCP - General FAMILY PRACTICE 02/13/17 03/10/17 Heber Huynh MD PCP - General 03/11/17 06/14/17 Deisi Andrews MD [address] [place] [address] PCP - General FAMILY PRACTICE 06/15/17 10/14/19 Asa Mcnam[facility] [address] [place] [address] [employer] I Assembler CARDIOVASCULAR DISEASE 05/15/16 documented as of this encounter
--- OUTSIDE RECORDS SUMMARY | 2024-11-12 04:49 | XMS_ITS | Encounter Summary ---
Author Organization [facility] Address [address] [place] [address] [place] [address] Care Team Providers Care Dental Professional Name Role Phone Dane Sullivan Primary Care Provider [phone] Asa Mcnamara MD Unavailable [phone] Encounter Details Date Type Department Care Team (Late st Contact Info) Description 07/01/2016 Orders Only [facility] AT [address] [address] Asa Mcnamara MD [address] [address] Social History Tobacco Use Types Packs/Day Years Used Date Smoking Tobacco: Every Day Cigarettes Smokeless Tobacco: Never Alcohol Use Standard Drinks/Week Comments No 0 (1 standard drink = 0.6 oz pur e alcohol) Comments Unknown Sex and Gender Information Value Date Recorded Sex Assigned at Female 12/06/2019 3:36 PM BITUMEN PLANT OPERATOR Legal Sex Female 5:20 PM CDT Gender Identity Female 12/06/2019 3:36 PM BITUMEN PLANT OPERATOR Sexual Orientation Straight 12/06/2019 3: 36 PM BITUMEN PLANT OPERATOR 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 Not on file Not on file documented as of this encounter Plan of Treatment Not on file documented as of this encounter Visit Diagnoses Diagnosis PVD (peripheral vascular disease) (CMS/HCC)- Primary Peripheral vascular disease, unspecified Claudication (CMS/HCC) Peripheral vascular disease, unspecified Iliac artery stenosis, right (CMS/HCC) Stricture of artery Other symptoms involving cardiovascular system documented in this encounter Care Teams Dental Professional Relationship Specialty Start Date End Date Dane Sullivan DO PCP - General FAMILY PRACTICE 05/15/16 02/11/17 Asa Mcnamara MD [facility] [address] [place] [address] [place] Production Tester CARDIOVASCULAR DISEASE 05/15/16 documented as of this encounter
--- OUTSIDE RECORDS SUMMARY | 2024-11-12 04:49 | XMS_ITS | Encounter Summary ---
Author Organization [facility] Address [facility] [place] [address] [place] [address] Care Team Providers Care Electrostatic Painter Name Role Phone Dane Sullivan Primary Care Provider [phone] Asa Mcnamara MD Unavailable [phone] Encounter Details Date Type Department Care Team (Late st Contact Info) Description 07/01/2016 Orders Only [facility] AT [address] [address] Asa Mcnamara MD [address] [address] Social History Tobacco Use Types Packs/Day Years Used Date Smoking Tobacco: Every Day Cigarettes Smokeless Tobacco: Never Alcohol Use Standard Drinks/Week Comments No 0 (1 standard drink = 0.6 oz pur e alcohol) Comments Unknown Sex and Gender Information Value Date Recorded Sex Assigned at Female 12/06/2019 3:36 PM BUSINESS BANKER Legal Sex Female 5:20 PM CDT Gender Identity Female 12/06/2019 3:36 PM BUSINESS BANKER Sexual Orientation Straight 12/06/2019 3: 36 PM BUSINESS BANKER Occupation Industry Job Start Date Job End [...] GONADOTROPINHCG QL (07/01/2016 7:06 AM CDT) Pathologist [facility] PREG SCREEN-SERUM NEGATIVE [facility] 07/01/2016 7:06 AM CDT 07/01/2016 7:12 AM CDT Asa Mcnamara MD LABORATORY Final Result [facility] [address] [place] [address], [place] [phone] * (ABNORMAL) BASIC METABOLIC PANEL (07/01/2016 7:06 AM CDT) [facility] GLUCOSE 161(H) 70 - 99 mg/dL [facility] BUN 25(H) 8 - 23 mg/dL [facility] CREATININE S/P/B 0.74 0.60 - 1.10 mg/dL [facility] SODIUM S/P/B 135(L) 136 - 145 mmol/L [facility] POTASSIUM S/P/B 4.4 3.5 - 5.1 mmol/L [facility] CHLORIDE S/P/B 100 98 - 107 mmol/L [facility] CO2 22 22 - 29 mmol/L [facility] CALCIUM S/P/B 9.0 8.6 - 10.2 mg/dL [facility] ANION GAP 17 8 - 20 [facility] EGFR NON-AFR. AMER. >60 >60 mL/min/1. 73m'2 [facility] EGFR AFR. AMER. >60 NOTE: eGFR is not calculated for patients <18 years of age. This is an estimated GFR (CKD EPI) and should not be used for calculating drug doses. >60 mL/min/1. 73m'2 [facility] 07/01/2016 7:06 AM CDT 07/01/2016 7:12 AM CDT Asa Mcnamara MD LABORATORY Final Result Performing Organization Address [facility] de Phone Number [facility] [address] [place] [address], * PROTIME/INR, VENOUS (07/01/2016 7:06 AM CDT) PROTIME 11.1 9.6 - 12.2 SEC [facility] INR 1.00 Recommended INR Therapeutic Goals: ??2.0-3.0 Routine Therapy ??2.5-3.5 Mechanical Prosthetic Valves (High Risk) ??3.0-4.0 Acute [place] (to prevent Systemic Embolism) The INR is used only for patients on stable oral anticoagulant therapy. It makes no significant contribution to the diagnosis or treatment of patients whose Protime is prolonged for other reasons. [facility] 07/01/2016 7:06 AM CDT 07/01/2016 7:12 AM CDT us Asa Mcnamara MD LABORATORY Final Result Performing Organization Address [facility] Co de Phone Number [facility] [address] [place] [phone], * (ABNORMAL) CBC W/DIFF AUTOMATED (07/01/2016 7:06 AM CDT) WBC 17.0(H) 4.8 - 10.8 X10'3/uL [facility] RBC 4.86 4.20 - 5.40 X10'6/uL [facility] HGB 13.6 12.0 - 16.0 g/dL [facility] HCT 40.4 38.0 - 48.0 % [facility] MCV 83.1 81.0 - 99.0 fL [facility] MCH 28.0 27.0 - 31.0 pg [facility] MCHC 33.7 32.0 - 36.0 g/dL [facility] RDW 13.3 11.5 - 14.5 % [facility] PLT 275 130 - 400 X10'3/uL [facility] MPV 10.0 9.3 - 12.2 fL [facility] DIFFERENTIAL TYPE AUTOMATED [facility] NEUTROPHILS % 77.8(H) 43.0 - 65.0 % [facility] LYMPHOCYTES % 13.9(L) 20.0 - 46.0 % [facility] MONOCYTES % 6.3 5.0 - 12.0 % [facility] EOSINOPHILS 0.9(L) 1.0 - 3.0 % [facility] BASOPHILS 0.4 0.0 - 1.0 % [facility] IMMATURE GRANS % 0.7 0.0 - 1.0 % [facility] 07/01/2016 7:06 AM CDT 07/01/2016 7:12 AM CDT Asa Mcnamara MD LABORATORY Final Result [facility] [address] [place] [address], documented in this encounter Visit Diagnoses Not on filedocumented in this encounter Care Teams Electrostatic Painter Relationship Specialty Start Date End Date Dane Sullivan DO PCP - General FAMILY PRACTICE 05/15/16 02/11/17 Asa Mcnamara MD [facility]. [place] [id number] [place] [address] [place] Cleaner Window CARDIOVASCULAR DISEASE 05/15/16 documented as of this encounter
--- OUTSIDE RECORDS SUMMARY | 2024-11-12 04:49 | XMS_ITS | Encounter Summary ---
Author Organization [facility] Address [address] [facility] [place] [address] [place] [address] Care Team Providers Care Timber Selector Name Role Phone Dane Sullivan Primary Care Provider [phone] Asa Mcnamara MD Unavailable [phone] Encounter Details Date Type Department Care Team (Late st Contact Info) Description 05/27/2016 Orders Only [place] [facility] AT [address] [address] Asa Mcnamara MD [address] [address] Social History Tobacco Use Types Packs/Day Years Used Date Smoking Tobacco: Every Day Cigarettes Smokeless Tobacco: Never Alcohol Use Standard Drinks/Week Comments No 0 (1 standard drink = 0.6 oz pur e alcohol) Comments Unknown Sex and Gender Information Value Date Recorded Sex Assigned at Female 12/06/2019 3:36 PM PSYCHIATRIC NURSING ASSISTANT Legal Sex Female 5:20 PM CDT Gender Identity Female 12/06/2019 3:36 PM PSYCHIATRIC NURSING ASSISTANT Sexual Orientation Straight 12/06/2019 3: 36 PM PSYCHIATRIC NURSING ASSISTANT 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 Not on file Not on file documented as of this encounter Plan of Treatment Not on file documented as of this encounter Procedures Procedure Name Priority Date/Time Associated Diagnosis Comments BASIC METABOLIC PANEL Routine 05/25/2016 12:30 PM CDT Preoperative testing PVD (peripheral vascular disease) Claudication HTN (hypertension) CBC W/DIFF AUTOMATED Routine 05/25/2016 12:30 PM CDT Preoperative testing PVD (peripheral vascular disease) Claudication HTN (hypertension) documented in this encounter Results * (ABNORMAL) BASIC METABOLIC PANEL (05/25/2016 12:30 PM CDT) GLUCOSE 105(H) 70 - 99 mg/dL [facility] BUN 16 8 - 23 mg/dL [facility] CREATININE S/P/B 0.65 0.60 - 1.10 mg/dL [facility] SODIUM S/P/B 140 136 - 145 mmol/L [facility] POTASSIUM S/P/B 4.4 3.5 - 5.1 mmol/L [facility] CHLORIDE S/P/B 102 98 - 107 mmol/L [facility] CO2 23 22 - 29 mmol/L [facility] CALCIUM S/P/B 9.2 8.6 - 10.2 mg/dL [facility] ANION GAP 19 8 - 20 [facility] EGFR NON-AFR. AMER. >60 >60 mL/min/1.7 3m'2 [facility] EGFR AFR. AMER. >60 >60 mL/min/1.7 3m'2 [facility] Comment: NOTE: eGFR is not calculated for patients <18 years of age. This is an estimated GFR (CKD EPI) and should not be used for calculating drug doses. 05/25/2016 12:3 0 PM CDT 05/25/2016 4:38 PM CDT us Asa Mcnamara MD LABORATORY Final Result [facility] [address] [place] [address], * (ABNORMAL) CBC W/DIFF AUTOMATED (05/25/2016 12:30 PM CDT) WBC 11.6(H) 4.8 - 10.8 X10'3/uL [facility] RBC 4.69 4.20 - 5.40 X10'6/uL [facility] HGB 13.0 12.0 - 16.0 g/dL [facility] HCT 40.6 38.0 - 48.0 % [facility] MCV 86.6 81.0 - 99.0 fL [facility] MCH 27.7 27.0 - 31.0 pg [facility] MCHC 32.0 32.0 - 36.0 g/dL [facility] RDW 13.4 11.5 - 14.5 % [facility] PLT 245 130 - 400 X10'3/uL [facility] MPV 10.2 9.3 - 12.2 fL [facility] DIFFERENTIAL TYPE AUTOMATED [facility] NEUTROPHILS % 63.3 43.0 - 65.0 % [facility] LYMPHOCYTES % 24.9 20.0 - 46.0 % [facility] MONOCYTES % 8.0 5.0 - 12.0 % [facility] EOSINOPHILS 3.0 1.0 - 3.0 % [facility] BASOPHILS 0.4 0.0 - 1.0 % [facility] IMMATURE GRANS % 0.4 0.0 - 1.0 % [facility] 05/25/2016 12:3 0 PM CDT 05/25/2016 4:38 PM CDT Asa Mcnamara MD LABORATORY Final Result [facility] [address] [place] [address], documented in this encounter Visit Diagnoses Diagnosis Preoperative testing Preoperative examination, unspecified PVD (peripheral vascular disease) (CMS/HCC) Peripheral vascular disease, unspecified Claudication (CMS/HCC) Peripheral vascular disease, unspecified HTN (hypertension) Unspecified essential hypertension documented in this encounter Care Teams Timber Selector Relationship Specialty Start Date End Date Dane Sullivan DO PCP - General FAMILY PRACTICE 05/15/16 02/11/17 Asa Mcnamara MD [facility]. [facility] [address] [place] [address] [place] Bereavement Program Coordinator CARDIOVASCULAR DISEASE 05/15/16 documented as of this encounter
--- OUTSIDE RECORDS SUMMARY | 2024-11-12 04:49 | XMS_ITS | Encounter Summary ---
Author Organization [facility] Address [facility]. [place], [place] [address] [place] [address] Care Team Providers Care Gymnastic Coach Name Role Phone aDne Sullivan DO Primary Care Provider + [phone] Asa Mcnamara MD Unavailable [phone] Deisi Andrews MD Primary Care Provider [phone] Heber Adorno MD Primary Care Provider Unavailable Dane Sullivan DO Primary Care Provider + [phone] Dane Sullivan DO Primary Care Provider + [phone] Dane Sullivan DO Primary Care Provider + [phone] Dane Sullivan DO Primary Care Provider + [phone] Deisi Andrews MD Primary Care Provider [phone] Encounter Details Date Type Department Care Team (Latest Contact Info) Description 12/17/2015 Abstract [facility] Social History Tobacco Use Types Packs/Day Years Used Date Smoking Tobacco: Never Assessed Comments Unknown Sex and Gender Information Value Date Recorded Sex Assigned at Female 12/06/2019 3:36 PM GENERAL AGENT Legal Sex Female 5:20 PM CDT Gender Identity Female 12/06/2019 3:36 PM GENERAL AGENT Sexual Orientation Straight 12/06/2019 3: 36 PM GENERAL AGENT documented as of this encounter Plan of Treatment Not on file documented as of this encounter Visit Diagnoses Not on filedocumented in this encounter Care Teams Gymnastic Coach Relationship Specialty Start Date End Date Dane Sullivan DO PCP - General FAMILY PRACTICE 05/15/16 02/11/17 Deisi Andrews MD [address] [place] [address] PCP - General FAMILY PRACTICE 02/13/17 03/10/17 Heber Adorno MD PCP - General 03/11/17 06/14/17 Dane Sullivan DO PCP - General 05/04/16 05/14/16 Dane Sullivan DO PCP - General 04/17/16 05/03/16 Dane Sullivan DO PCP - General 03/26/16 04/16/16 Dane Sullivan DO PCP - General 11/12/15 03/25/16 Deisi Andrews MD [address] [place] [address] PCP - General FAMILY PRACTICE 06/15/17 10/14/19 Asa Mcnamara MD [facility]. [facility] [address] [place] [address] [place] Rolling Attendant CARDIOVASCULAR DISEASE 05/15/16 documented as of this encounter
--- OUTSIDE RECORDS SUMMARY | 2024-11-12 04:49 | XMS_ITS | Encounter Summary ---
Author Organization [facility] Address [address] [facility]. [place], [place] [address] [place] [address] Care Team Providers Care Cotton Cleaner Name Role Phone Tere Monae DO Primary Care Provider + [phone] Asa Mcnamara MD Unavailable [phone] Deisi Andrews MD Primary Care Provider [phone] Heber Adorno MD Primary Care Provider Unavailable Tere Monae DO Primary Care Provider + [phone] Tere Monae DO Primary Care Provider + [phone] Deisi Andrews MD Primary Care Provider [phone] Encounter Details Date Type Department Care Team (Latest Contact Info) Description 04/19/2016 Abstract [facility] Medical Group Md Generic MD Vivi Social History Tobacco Use Types Packs/Day Years Used Date Smoking Tobacco: Never Assessed Comments Unknown Sex and Gender Information Value Date Recorded Sex Assigned at Female 12/06/2019 3:36 PM EFFERVESCENT SALTS COMPOUNDER Legal Sex Female 5:20 PM CDT Gender Identity Female 12/06/2019 3:36 PM EFFERVESCENT SALTS COMPOUNDER Sexual Orientation Straight 12/06/2019 3: 36 PM EFFERVESCENT SALTS COMPOUNDER documented as of this encounter Progress Notes * Tere Monae DO - 04/19/2016 6:30 PM CDT [place] [address] Patient: RODY CRUZ [facility] Rec#: [id number] Birthdate: 1960 Admit/Svce Date: 04/17/2016 Disch Date: Attending Md: ASA MCNAMARA MD CHART DOCUMENT ARTERIAL DOPPLER - [facility] Pat.Name: RODY CRUZ Pat.ID: [id number] .Date: 04/17/2016 Refer.MD: TERE MONAE MD Exam Time: 5:21:00 PM Study Type:SCOTTIE VS Arterial Doppler KENZIE LTD Height: 62in Age: 2 1960,55Y Sex: FEMALE Sonogrphr: Roxie Caba RVT Reason for Study:Limb pain History / Clinical:OP Race: C Risk Factors:SEE DUPLEX NOTES Clinical Symptoms:BLE calf pain; SEE DUPLEX NOTES Medications:ASA SUMMARY: Gail KENZIE Criteria: >1.30 = falsely elevated, [...] not assessed; Popliteal not assessed; Posterior Tibial monophasic, medium amplitude with KENZIE 0.768 ; DP/Anterior Tibial mono-biphasic, medium amplitude with KENZIE 0.736 . Digit flow by PPG is medium amplitude with DBI 0.56 . Left leg: Common Femoral waveform is not assessed; Popliteal not assessed; Posterior Tibial triphasic, medium amplitude with KENZIE 0.952 ; DP/Anterior Tibial triphasic, high amplitude with KENZIE 0.88 . Digit flow by PPG is medium amplitude with DBI 0.784 . CONCLUSION: KENZIE right leg 0.768, with toe index 0.56 , in the range of moderate ischemia, claudication. Waveforms suggestive of infrageniculate disease, small vessel disease. KENZIE left leg 0.952, with toe index 0.784 , in the range of mild ischemia, asymptomatic PAD. Waveforms suggestive of infrageniculate disease. Recommend follow up in 1 year. MEASUREMENTS: PRESSURES Right Brachial Brach P 125 mmHg Right Ankle DP AnkleDP P 92 mmHg Right Ankle PT AnklePT P 96 mmHg Right Great Toe GreatToe P 70 mmHg Right KENZIE PT KENZIE PT 0.768 Right KENZIE DP KENZIE DP 0.736 Right TBI TBI 0.56 Left Brachial Brach P 125 mmHg Left Ankle DP AnkleDP P 110 mmHg Left Ankle PT AnklePT P 119 mmHg Left Great Toe GreatToe P 98 mmHg Left KENZIE PT KENZIE PT 0.952 Left KENZIE DP KENZIE DP 0.88 Left TBI TBI 0.784 Signed 04/19/2016 06:27 PM Caesar Aguayo M.D. cc: Michelle ISLAS D.O. documented in this encounter Plan of Treatment Not on file documented as of this encounter Visit Diagnoses Not on filedocumented in this encounter Care Teams Cotton Cleaner Relationship Specialty Start Date End Date Tere Monae DO PCP - General FAMILY PRACTICE 05/15/16 02/11/17 Deisi Andrews MD [address] [place] [address] [place] [address] PCP - General FAMILY PRACTICE 02/13/17 03/10/17 Heber Adorno MD PCP - General 03/11/17 06/14/17 Tere Monae DO PCP - General 05/04/16 05/14/16 Tere Monae DO PCP - General 04/17/16 05/03/16 Deisi Andrews MD [address] [place] [address] [place] [address] PCP - General FAMILY PRACTICE 06/15/17 10/14/19 Asa Mcnamara MD [facility] [address] [place] [address] [place] Mechanical Systems Control Engineer CARDIOVASCULAR DISEASE 05/15/16 documented as of this encounter
--- OUTSIDE RECORDS SUMMARY | 2024-11-12 04:49 | XMS_ITS | Encounter Summary ---
Author Organization [facility] Address [address] [facility]. [place], [place] [address] [place] [address] Care Team Providers Care Facilities Director Name Role Phone Dane Sullivan DO Primary Care Provider + [phone] Asa Mcnamara MD Unavailable [phone] Deisi Andrews MD Primary Care Provider [phone] Heber Adorno MD Primary Care Provider Unavailable Dane Sullivan DO Primary Care Provider + [phone] Deisi Andrews MD Primary Care Provider [phone] Encounter Details Date Type Department Care Team (Late st Contact Info) Description 05/04/2016 Abstract [facility] [place], [place] [id number] Lorelei Norton MD [facility] [address] [place], [place] [id number] Social History Tobacco Use Types Packs/Day Years Used Date Smoking Tobacco: Never Assessed Comments Unknown Sex and Gender Information Value Date Recorded Sex Assigned at Female 12/06/2019 3:36 PM SENIOR CLINICIAN Legal Sex Female 5:20 PM CDT Gender Identity Female 12/06/2019 3:36 PM SENIOR CLINICIAN Sexual Orientation Straight 12/06/2019 3: 36 PM SENIOR CLINICIAN documented as of this encounter Plan of Treatment Not on file documented as of this encounter Visit Diagnoses Diagnosis Radiculopathy of lumbar region Thoracic or lumbosacral neuritis or radiculitis, unspecified documented in this encounter Care Teams Facilities Director Relationship Specialty Start Date End Date Dane Sullivan DO PCP - General FAMILY PRACTICE 05/15/16 02/11/17 Deisi Andrews MD [address] [place] [address] PCP - General FAMILY PRACTICE 02/13/17 03/10/17 Heber Adorno MD PCP - General 03/11/17 06/14/17 Dane Sullivan DO PCP - General 05/04/16 05/14/16 Deisi Andrews MD [address] [place] [address] PCP - General FAMILY PRACTICE 06/15/17 10/14/19 Asa Mcnamara MD [facility]. [facility] [address] [place] [address] Stephen Body Shop Manager CARDIOVASCULAR DISEASE 05/15/16 documented as of this encounter
--- OUTSIDE RECORDS SUMMARY | 2024-11-12 04:49 | XMS_ITS | Encounter Summary ---
Author Organization [facility] Address [address] [facility]. [place], [place] [address] [place] [address] Care Team Providers Care Funeral Home Makeup Artist Name Role Phone Dane Sullivan DO Primary Care Provider [phone] Encounter Details Date Type Department Care Team (Late st Contact Info) Description 04/17/2016 [facility] AT [address] [place] [address] , Heber Trinidad MD Social History Tobacco Use Types Packs/Day Years Used Date Smoking Tobacco: Never Assessed Comments Unknown Sex and Gender Information Value Date Recorded Sex Assigned at Female 12/06/2019 3:36 PM WASTEWATER TREATMENT OPERATOR Legal Sex Female 5:20 PM CDT Gender Identity Female 12/06/2019 3:36 PM WASTEWATER TREATMENT OPERATOR Sexual Orientation Straight 12/06/2019 3: 36 PM WASTEWATER TREATMENT OPERATOR documented as of this encounter Plan of Treatment Not on file documented as of this encounter Visit Diagnoses Not on filedocumented in this encounter Care Teams Funeral Home Makeup Artist Relationship Specialty Start Date End Date Dane Sullivan DO PCP - General 04/17/16 05/03/16 documented as of this encounter
--- OUTSIDE RECORDS SUMMARY | 2024-11-12 04:49 | XMS_ITS | Encounter Summary ---
Author Organization [facility] Address [address] [facility]. [place], [place] [address] [place] [address] Care Team Providers Care Pan Cleaner Name Role Phone Dane Sullivan DO Primary Care Provider [phone] Encounter Details Date Type Department Care Team (Late st Contact Info) Description 04/20/2016 [facility] AT [address] [place] [address] , Heber Trinidad MD Social History Tobacco Use Types Packs/Day Years Used Date Smoking Tobacco: Never Assessed Comments Unknown Sex and Gender Information Value Date Recorded Sex Assigned at Female 12/06/2019 3:36 PM DUMP MOTORMAN Legal Sex Female 5:20 PM CDT Gender Identity Female 12/06/2019 3:36 PM DUMP MOTORMAN Sexual Orientation Straight 12/06/2019 3: 36 PM DUMP MOTORMAN documented as of this encounter Plan of Treatment Not on file documented as of this encounter Visit Diagnoses Not on filedocumented in this encounter Care Teams Pan Cleaner Relationship Specialty Start Date End Date Dane Sullivan DO PCP - General 04/17/16 05/03/16 documented as of this encounter
--- OUTSIDE RECORDS SUMMARY | 2024-11-12 04:49 | XMS_ITS | Encounter Summary ---
Author Organization [facility] Address [facility] [place] [address] [place] [address] Care Team Providers Care Rotary Engine Assembler Name Role Phone Sullivan, Dane Gricel FLORES Primary Care Provider [phone] Asa Mcnamara MD Unavailable [phone] Reason for Visit * Reason Onset Date Comments Question 06/25/2016 Encounter Details Date Type Department Care Team (Late st Contact Info) Description 06/25/2016 Telephone [employer] [facility] AT [address] [address] Katt Walter, RN Question Social History Tobacco Use Types Packs/Day Years Used Date Smoking Tobacco: Every Day Cigarettes Smokeless Tobacco: Never Alcohol Use Standard Drinks/Week Comments No 0 (1 standard drink = 0.6 oz pur e alcohol) Comments Unknown Sex and Gender Information Value Date Recorded Sex Assigned at Female 12/06/2019 3:36 PM ELECTRICAL FITTER Legal Sex Female 5:20 PM CDT Gender Identity Female 12/06/2019 3:36 PM ELECTRICAL FITTER Sexual Orientation Straight 12/06/2019 3: 36 PM ELECTRICAL FITTER 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 Anders hess to hold Cilostazol for 48 ours prior to injections. I informed Tatianna of the above information. Tatianna verbalized understanding and had no further questions. * Melinda Reyna RN - 06/25/2016 4:33 PM CDT Katt from from Pain Management called again and stated she had not heard back from our office yet today and she is off tomorrow. She stated to inform Katt Varela To contact Tatianna in the Clinictomorrow. I instructed Katt that I will inform Katt Astudillo.Arnieto follow up tomorrow. Katt voiced understanding. * Katt Costa RN - 06/25/2016 1:10 PM CDT I received a voicemail from Katt (Pain management) re: Cilostazol. I returned the phone call and Katt states the patient is in their office and was scheduled for a lumbar epidural injection. The patient informed her that she is on Cilostazol; recommended to hold48 hours prior to injections. The patient also informed her that she is scheduled for a vascular procedure on Wednesday. Katt states they rescheduled the patient for her injection on Wednesday and to know if okay to hold - last dose will be Wednesday, then resume after the procedure. I informed Katt I will notify Dr. Mcnamara. Katt verbalized understanding and had no further questions. Message to Dr. Mcnamara and PA documented in this encounter Plan of Treatment Not on file documented as of this encounter Visit Diagnoses Not on filedocumented in this encounter Care Teams Rotary Engine Assembler Relationship Specialty Start Date End Date Dane Sullivan DO PCP - General FAMILY PRACTICE 05/15/16 02/11/17 Asa Mcnamara MD [facility]. [facility] [address] [place] [address] Stephen Waste Picker CARDIOVASCULAR DISEASE 05/15/16 documented as of this encounter
--- OUTSIDE RECORDS SUMMARY | 2024-11-12 04:49 | XMS_ITS | Encounter Summary ---
Author Organization [facility] Address [address] [facility]. [place], [place] [address] [place] [address] Care Team Providers Care Lapel Stitcher Name Role Phone Dane Sullivan DO Primary Care Provider + [phone] Asa Mcnamara MD Unavailable [phone] Deisi Andrews MD Primary Care Provider [phone] Heber Adorno MD Primary Care Provider Unavailable Dane Sullivan DO Primary Care Provider + [phone] Dane Sullivan DO Primary Care Provider + [phone] Dane Sullivan DO Primary Care Provider + [phone] Deisi Andrews MD Primary Care Provider [phone] Encounter Details Date Type Department Care Team (Late st Contact Info) Description 04/09/2016 Abstract [facility] Medical [facility] Family Medicine - [address] [phone] Leo Meza MD Social History Tobacco Use Types Packs/Day Years Used Date Smoking Tobacco: Never Assessed Comments Unknown Sex and Gender Information Value Date Recorded Sex Assigned at Female 12/06/2019 3:36 PM BONE CHAR KILN OPERATOR Legal Sex Female 5:20 PM CDT Gender Identity Female 12/06/2019 3:36 PM BONE CHAR KILN OPERATOR Sexual Orientation Straight 12/06/2019 3: 36 PM BONE CHAR KILN OPERATOR documented as of this encounter Progress Notes * Dane Sullivan DO - 04/09/2016 1:22 PM CDT Verified Results *Urine dip auto In Office [id number] 10:14AM Dane Sullivan Test Name Result Flag Reference Color Yellow Clarity Clear Glucose Negative Bilirubin Negative Ketones Negative Specific Elmer 1.025 Blood Negative pH 6.5 5.0 - 7.0 Protein Trace Urobilinogen 0.2 E.U./dL Nitrites Negative Leukocytes Negative Discussion/Summary Urine just has a trace of protein, nothing alarming at this time, and improved from before Ok to continue to monitor, can recheck during routine screening documented in this encounter Plan of Treatment Not on file documented as of this encounter Procedures Procedure Name Priority Date/Time Associated Diagnosis Comments URINALYSIS AUTO DIP Routine 04/09/2016 1 0:14 AM CDT documented in this encounter Results * URINALYSIS AUTO DIP (04/09/2016 10:14 AM CDT) COLOR (U) Yellow [facility] T O EPIC CONVERSION TRANSPARENCY Clear [facility] P TO EPIC CONVERSION GLUCOSE Negative [facility] T O EPIC CONVERSION BILIRUBIN (U) Negative [facility] UP TO EPIC CONVERSION KETONE (U) Negative [facility] TO EPIC CONVERSION SPECIFIC GRAVITY (U) 1.025 [facility] TO EPIC CONVERSION BLOOD (U) Negative [facility] T O EPIC CONVERSION PH (U) 6.5 5.0 - 7.0 [facility] T O EPIC CONVERSION PROTEIN (ELP) (U) Trace [facility] TO EPIC CONVERSION UROBILINOGEN 0.2 E.U./dL [facility] OUP TO EPIC CONVERSION NITRITES Negative [facility] T O EPIC CONVERSION LEUKOCYTES (U) Negative [facility] OUP TO EPIC CONVERSION 04/09/2016 10:1 4 AM CDT 04/09/2016 10:14 AM CDT Narrative [facility] TO EPIC CONVERSION - 04/09/2016 10:14 AM CDT Result Communication: Call patient with results us Dane Sullivan DO URINE ORDERABLES Final Resul t [facility] TO EPIC CONVERSION documented in this encounter Visit Diagnoses Not on filedocumented in this encounter Care Teams Lapel Stitcher Relationship Specialty Start Date End Date Dane Sullivan DO PCP - General FAMILY PRACTICE 05/15/16 02/11/17 Deisi Andrews MD [address] [place] [address] PCP - General FAMILY PRACTICE 02/13/17 03/10/17 Heber Adorno MD PCP - General 03/11/17 06/14/17 Dane Sullivan DO PCP - General 05/04/16 05/14/16 Dane Sullivan DO PCP - General 04/17/16 05/03/16 Dane Sullivan DO PCP - General 03/26/16 04/16/16 Deisi Andrews MD [address] [place] [address] PCP - General FAMILY PRACTICE 06/15/17 10/14/19 Asa Mcnamara MD [facility]. [facility] [address] [place] [address] [employer] Steam Distribution Supervisor CARDIOVASCULAR DISEASE 05/15/16 documented as of this encounter
--- OUTSIDE RECORDS SUMMARY | 2024-11-12 04:49 | XMS_ITS | Encounter Summary ---
Author Organization [facility] Address [facility] [place] [address] [place] [address] Care Team Providers Care Hole Filler Name Role Phone Dane Sullivan DO Primary Care Provider + [phone] Asa Mcnamara MD Unavailable +[phone] Dane Sullivan DO Primary Care Provider + [phone] Encounter Details Date Type Department Care Team (Late st Contact Info) Description 05/13/2016 Orders Only [facility] AT [address] [address] Rohit Vargas, ACADEMIC PROGRAM SPECIALIST Social History Tobacco Use Types Packs/Day Years Used Date Smoking Tobacco: Never Assessed Comments Unknown Sex and Gender Information Value Date Recorded Sex Assigned at Female 12/06/2019 3:36 PM WEB DEVELOPMENT INSTRUCTOR Legal Sex Female 5:20 PM CDT Gender Identity Female 12/06/2019 3:36 PM WEB DEVELOPMENT INSTRUCTOR Sexual Orientation Straight 12/06/2019 3: 36 PM WEB DEVELOPMENT INSTRUCTOR documented as of this encounter Plan of Treatment Not on file documented as of this encounter Visit Diagnoses Not on filedocumented in this encounter Care Teams Hole Filler Relationship Specialty Start Date End Date Dane Sullivan DO PCP - General FAMILY PRACTICE 05/15/16 02/11/17 Dane Sullivan DO PCP - General 05/04/16 05/14/16 Asa Mcnamara MD [facility]. [facility] [address] [place] [address] [facility] Manager CARDIOVASCULAR DISEASE 05/15/16 documented as of this encounter
--- OUTSIDE RECORDS SUMMARY | 2024-11-12 04:49 | XMS_ITS | Encounter Summary ---
Author Organization [facility] Address [facility]. [place], [place] [address] [place] [address] Care Team Providers Care Service Car Driver Name Role Phone Dane Sullivan DO Primary Care Provider + [phone] Asa Mcnamara MD Unavailable [phone] Deisi Andrews MD Primary Care Provider [phone] Heber Adorno MD Primary Care Provider Unavailable Dane Sullivan DO Primary Care Provider + [phone] Dane Sullivan DO Primary Care Provider + [phone] Dane Sullivan DO Primary Care Provider + [phone] Dane Sullivan DO Primary Care Provider + [phone] Deisi Andrews MD Primary Care Provider [phone] Encounter Details Date Type Department Care Team (Latest Contact Info) Description 12/31/2015 Abstract [facility] Medical Group Social History Tobacco Use Types Packs/Day Years Used Date Smoking Tobacco: Never Assessed Comments Unknown Sex and Gender Information Value Date Recorded Sex Assigned at Female 12/06/2019 3:36 PM GANG TAILER Legal Sex Female 5:20 PM CDT Gender Identity Female 12/06/2019 3:36 PM GANG TAILER Sexual Orientation Straight 12/06/2019 3: 36 PM GANG TAILER documented as of this encounter Plan of Treatment Not on file documented as of this encounter Visit Diagnoses Not on filedocumented in this encounter Care Teams Service Car Driver Relationship Specialty Start Date End Date Dane Sullivan DO PCP - General FAMILY PRACTICE 05/15/16 02/11/17 Deisi Andrews MD [address] [place] [address] PCP - General FAMILY PRACTICE 02/13/17 03/10/17 Heber Adorno MD PCP - General 03/11/17 06/14/17 Dane Sullivan DO PCP - General 05/04/16 05/14/16 Dane Sullivan DO PCP - General 04/17/16 05/03/16 Dane Sullivan DO PCP - General 03/26/16 04/16/16 Dane Sullivan DO PCP - General 11/12/15 03/25/16 Deisi Andrews MD [address] [place] [address] PCP - General FAMILY PRACTICE 06/15/17 10/14/19 Asa Mcnamara MD [facility]. [facility] [address] [place] [address] [place] Melter Clerk CARDIOVASCULAR DISEASE 05/15/16 documented as of this encounter
--- OUTSIDE RECORDS SUMMARY | 2024-11-12 04:49 | XMS_ITS | Encounter Summary ---
Author Organization [facility] Address [facility]6 [facility]. [place], [place] [address] [place] [address] Care Team Providers Care Human Resources Consultant Name Role Phone Dane Sullivan DO Primary Care Provider [phone] Asa Mcnamara MD Unavailable [phone] Encounter Details Date Type Department Care Team (Late st Contact Info) Description 05/25/2016 Scan [facility] AT [address] [id number] Scanned, Documents Social History Tobacco Use Types Packs/Day Years Used Date Smoking Tobacco: Every Day Cigarettes Smokeless Tobacco: Never Alcohol Use Standard Drinks/Week Comments No 0 (1 standard drink = 0.6 oz pur e alcohol) Comments Unknown Sex and Gender Information Value Date Recorded Sex Assigned at Female 12/06/2019 3:36 PM LARD REFINER Legal Sex Female 5:20 PM CDT Gender Identity Female 12/06/2019 3:36 PM LARD REFINER Sexual Orientation Straight 12/06/2019 3: 36 PM LARD REFINER 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 [facility] [address] [place] [address] [place] Asset Administrator CARDIOVASCULAR DISEASE 05/15/16 documented as of this encounter
--- OUTSIDE RECORDS SUMMARY | 2024-11-12 04:49 | XMS_ITS | Encounter Summary ---
Author Organization [facility] Address [facility] [place] [address] [place] [address] Care Team Providers Care Metalsmith Name Role Phone Tere Monae Primary Care Provider [phone] Asa Mcnamara MD Unavailable [phone] Encounter Details Date Type Department Care Team (Late st Contact Info) Description 08/05/2016 Orders Only [facility] AT [facility] [address] [place] [address] Asa Mcnamara MD [place] [address] [place] [address] Social History Tobacco Use Types Packs/Day Years Used Date Smoking Tobacco: Every Day Cigarettes Smokeless Tobacco: Never Alcohol Use Standard Drinks/Week Comments No 0 (1 standard drink = 0.6 oz pur e alcohol) Comments Unknown Sex and Gender Information Value Date Recorded Sex Assigned at Female 12/06/2019 3:36 PM ALL SOURCE INTELLIGENCE Legal Sex Female 5:20 PM CDT Gender Identity Female 12/06/2019 3:36 PM ALL SOURCE INTELLIGENCE Sexual Orientation Straight 12/06/2019 3: 36 PM ALL SOURCE INTELLIGENCE 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 VASCULAR LAB Pat.Name: ??RODY CRUZ ? Pat.ID: ?[id number] ? St.Date: ?? 08/05/2016 ? Refer.MD: ??TERE MONAE DO ? Exam Time: 9:29:00 AM ? Study Type:SCOTTIE VS Aorta IVC Iliac Duplex DILEEP ??Age: ??1960,55Y ? Sex: ? FEMALE ? Sonogrphr: Roxie Caba RVT ? Reason for Study:Follow up Stent/angioplasty History / Clinical:OP ? Procedures:Qureshi scale, Color Doppler imaging, Doppler Spectral Analysis Race: ?C ? Risk Factors:SEE KENZIE EXAM ? Clinical Symptoms:Follow up Stenting Surgery: ?? Iliac Stent bilat common 07/01/16 Medications:ASA, Plavix-Clopidogrel ++++++++++++++++++++++++++++++++++++ SUMMARY: ++++++++++++++++++++++++++++++++++++ Gail Stenosis Criteria: ?50-75% = Ratio 2.0-4.0 and/or PSV 200-300; ? 75-99% = Ratio >4.0 and/or PSV >300 Aorta-iliac duplex: ??Aorta moderate plaque, biphasic with elevated PSV 194/14, ratio 2.2; ?? right common iliac stent patent; ?? right external iliac mild plaque, biphasic with normal velocity. Left common iliac stent patent; ?? left external iliac no evident narrowing, biphasic with normal velocity. ?? left proximal internal iliac moderate plaque with elevated velocity of 332/65 cm/s. CONCLUSION: ?? Mild aortic stenosis with moderate left internal iliac stenosis. ++++++++++++++++++++++++++++++++++++ MEASUREMENTS: ++++++++++++++++++++++++++++++++++++ ?DOPPLER Supra AO ?? Supra AO PSV ?77 cm/s ? Juxta AO ?? Juxta AO PSV ? 194 cm/s ?Juxta AO EDV ?14 cm/s Dist AO ?? Dist AO PSV ?114 cm/s ? Rt Prox Common Iliac ?? Common Iliac PS ?? 151 cm/s ? Rt Prox External Iliac ?? External Iliac ? 96 cm/s ? Lt Dist External Iliac ?? Lt Dist Externa ?? 113 cm/s ? Lt Prox External Iliac ?? External Iliac ?123 cm/s ? Lt Prox Internal Iliac ?? Internal Iliac ?332 cm/s ? Internal Iliac ? 65 cm/s ?GRAFT Left Prox to Stent KALANI:Stent Prox to Stent P ?? 127 cm/s ? Right Prox to Stent KALANI:Stent Prox to Stent P ?? 201 cm/s ? Left Prox Stent KALANI:Stent Prox Stent PSV ?? 117 cm/s ? Right Prox Stent KALANI:Stent Prox Stent PSV ?? 183 cm/s ? Left Mid Stent KALANI:Stent Mid Stent PSV ?133 cm/s ? Right Mid Stent KALANI:Stent Mid Stent PSV ?159 cm/s ? Left Dist Stent KALANI:Stent Dist Stent PSV ?? 139 cm/s ? Right Dist Stent KALANI:Stent Dist Stent PSV ?? 175 cm/s ? Left Dist to Stent KALANI:Stent Dist to Stent P ?? 121 cm/s ? Right Dist to Stent KALANI:Stent Dist to Stent P ?? 155 cm/s ? Signed 08/06/2016 06:39 PM Jose Hawkins M.D. Procedure Note Heber Adorno MD - 08/06/2016 [id number] DUPLEX IMAGING VASCULAR LAB Pat.Name: RODY CRUZ Pat.ID: [id number] St.Date: 08/05/2016 Refer.MD: TERE MONAE DO Exam Time: 9:29:00 AM Study Type:SCOTTIE VS Aorta IVC Iliac Duplex DILEEP Age: 3 1960,55Y Sex: FEMALE Sonogrphr: Roxie Caba, RVT Reason for Study:Follow up Stent/angioplasty History [...] Signed 08/06/2016 06:39 PM Jose Hawkins M.D. us Asa Mcnamara MD ULTRASOUND Final Result documented in this encounter Visit Diagnoses Not on filedocumented in this encounter Care Teams Metalsmith Relationship Specialty Start Date End Date Tere Monae DO PCP - General FAMILY PRACTICE 05/15/16 02/11/17 Aas Mcnamara MD [facility]. [facility] [address] [place] [address] [place] Direct Sales Consultant CARDIOVASCULAR DISEASE 05/15/16 documented as of this encounter
--- OUTSIDE RECORDS SUMMARY | 2024-11-12 04:49 | XMS_ITS | Encounter Summary ---
Author Organization [facility] Address [facility] [place], [place] [address] [place] [address] Care Team Providers Care Manager Flight Name Role Phone Dane Sullivan DO Primary Care Provider [phone] Asa Mcnamara MD Unavailable [phone] Deisi Andrews MD Primary Care Provider [phone] Heber Adorno MD Primary Care Provider Unavailable Deisi Andrews MD Primary Care Provider [phone] Encounter Details Date Type Department Care Team (Latest Contact Info) Description 05/21/[address] 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 Not on file Not on file documented as of this encounter Plan of Treatment Not on file documented as of this encounter Visit Diagnoses Not on filedocumented in this encounter Care Teams Manager Flight Relationship Specialty Start Date End Date Dane Sullivan DO PCP - General FAMILY PRACTICE 05/15/16 02/11/17 Deisi Andrews MD [address] [place] [address] PCP - General FAMILY PRACTICE 02/13/17 03/10/17 Heber Adorno MD PCP - General 03/11/17 06/14/17 Deisi Andrews MD [address] [place] [address] PCP - General FAMILY PRACTICE 06/15/17 10/14/19 Asa Mcnamara MD [facility] [address] [place] [address] [place] Marine Engineering Technicians CARDIOVASCULAR DISEASE 05/15/16 documented as of this encounter
--- OUTSIDE RECORDS SUMMARY | 2024-11-12 04:49 | XMS_ITS | Encounter Summary ---
Author Organization [facility] Address [address] [facility]. [place], [place] [address] [place] [address] Care Team Providers Care Youth Ministry Director Name Role Phone Dane Sullivan DO Primary Care Provider + [phone] Asa Mcnamara MD Unavailable [phone] Deisi Andrews MD Primary Care Provider [phone] Heber Adorno MD Primary Care Provider Unavailable Dane Sullivan DO Primary Care Provider + [phone] Dane Sullivan DO Primary Care Provider + [phone] Dane Sullivan DO Primary Care Provider + [phone] Deisi Andrews MD Primary Care Provider [phone] Encounter Details Date Type Department Care Team (Late st Contact Info) Description 04/14/2016 Abstract [facility] Medical [facility] [place] [address] [place] [address] Carlin Jaquez, DPDilcia [address] [place] [address] Social History Tobacco Use Types Packs/Day Years Used Date Smoking Tobacco: Never Assessed Comments Unknown Sex and Gender Information Value Date Recorded Sex Assigned at Female 12/06/2019 3:36 PM ASSOCIATE BIOLOGICAL SALES Legal Sex Female 5:20 PM CDT Gender Identity Female 12/06/2019 3:36 PM ASSOCIATE BIOLOGICAL SALES Sexual Orientation Straight 12/06/2019 3: 36 PM ASSOCIATE BIOLOGICAL SALES documented as of this encounter Last Filed Vital Signs Vital Sign Reading Time Taken Comments Blood Pressure 120/66 04/14/2016 1:15 PM CDT Pulse - - Temperature - - Respiratory Rate - - Oxygen Saturation - - Inhaled Oxygen Concentration - - Weight 102.1 kg (225 lb) 04/14/2016 1:15 PM CDT Height 160 cm (5' 3 ) 04/14/2016 1:15 PM CDT Body Mass Index 39.86 04/14/2016 1:15 PM CDT documented in this encounter Progress Notes * Carlin Jaquez, WILFREDO - 04/14/2016 1:15 PM CDT Reason For Visit Acute Follow-Up Visit Chief Complaint 1. Foot Problem History of Present Illness Foot Problem: The patient presents with complaints of calluses Symptoms are unchanged (f/u on lt foot great toe- callus/growth ) HPI: Patient is here for biopsy of the lesion on the left great toe. Patient previously had skin grafting placed on left toe due to chronic ulceration and then she started to get this fleshy soft tissue mass with multiple lobule growing in that area. It has been present for several years. Active Problems 1. Anxiety (300.00) (F41.9) 2. [...] Smoking (305.1) (F17.200) Immunizations Influenza --- Series1: [id number] Current Meds 1. AmLODIPine Besylate 5 MG Oral Tablet; TAKE 1 TABLET DAILY DIRECTED; Therapy: 25Sep2015 to (Evaluate:22Sep2016) Requested for: 01Apr2016; Last Rx:26Mar2016 Ordered 2. Aspirin 325 MG Oral Tablet; Therapy: (Recorded:[id number]) to Recorded 3. Cyclobenzaprine HCl - 10 MG Oral Tablet; TAKE 1 TABLET QD-BID PRN; Therapy: 27Nov2015 to (Last Rx:27Nov2015) Requested for: [id number] Ordered 4. Losartan Potassium 100 MG Oral Tablet; TAKE ONE TABLET BY MOUTH ONCE DAILY; Therapy: 10Mar2016 to (Evaluate:05Dec2016) Requested for: 01Apr2016; Last Rx:10Mar2016 Ordered 5. MetFORMIN HCl - 500 MG Oral Tablet; TAKE ONE TABLET BY MOUTH TWICE DAILY WITH MEALS; Therapy: 10Mar2016 to (Evaluate:10Awn2653) Requested for: 01Apr2016; Last Rx:10Mar2016 Ordered 6. Montelukast Sodium 10 MG Oral Tablet (Singulair); TAKE 1 TABLET DAILY Requested for: 01Apr2016; Last Rx:[id number] Ordered 7. Pravastatin Sodium 40 MG Oral Tablet; TAKE ONE TABLET BY MOUTH ONCE DAILY; Therapy: 57Ung8032 to (Evaluate:55Eeu7398) Requested for: 01Apr2016; Last Rx:12Feb2016 Ordered 8. [...] EVERY 4 TO 6 HOURS NEEDED; Therapy: 97Eig8920 to (Evaluate:22Feb2016) Requested for: 01Apr2016; Last Rx:[id number] Ordered 12. Xanax 1 MG Oral Tablet (ALPRAZolam); Therapy: (Recorded:01Apr2016) to Recorded Allergies 1. Halcion 2. Haldol 3. Penicillins 4. Risperidone and Related Vitals Recorded: 14Apr2016 01:15PM Systolic 120 Diastolic 66 Height 5 ft 3 in Weight 225 lb BMI Calculated 39.86 BSA Calculated 2.03 Physical Exam Skin: Fleshy, multilobulated lesion plantar HIPJ, left. There is 2 prominent lobules to the lesion with a couple of smaller ones. There is no open lesion of the skin. It does seem to be coming from one pedicle. Results/Data *Urine dip auto In Office [id number] 10:14AM Dane Sullivan Test Name Result Flag Reference Color Yellow Clarity Clear Glucose Negative Bilirubin Negative Ketones Negative Specific [place] 1.025 Blood Negative pH 6.5 5.0 - 7.0 Protein Trace Urobilinogen 0.2 E.U./dL Nitrites Negative Leukocytes Negative Assessment 1. Soft tissue mass (729.90) (M79.9) Plan Treatment option was discussed. Today, I anesthetized the mass and utilizing sharp tissue scissors,a section of the lobulated mass was removed and sent to pathology for examination. I will notify the patient with results. Follow up in 1 week. Dry sterile dressing was applied today and she will apply a Band-Aid tomorrow. Signatures Electronically signed by : Carlin Jaquez DPM; Apr 22 2016 1:35PM ASSOCIATE BIOLOGICAL SALES (Author) documented in this encounter Plan of Treatment Not on file documented as of this encounter Visit Diagnoses Not on filedocumented in this encounter Care Teams Youth Ministry Director Relationship Specialty Start Date End Date Dane Sullivan DO PCP - General FAMILY PRACTICE 05/15/16 02/11/17 Deisi Andrews MD [address] [place] [address] PCP - General FAMILY PRACTICE 02/13/17 03/10/17 Heber Adorno MD PCP - General 03/11/17 06/14/17 Dane Sullivan DO PCP - General 05/04/16 05/14/16 Dane Sullivan DO PCP - General 04/17/16 05/03/16 Dane Sullivan DO PCP - General 03/26/16 04/16/16 Deisi Andrews MD [address] [place] [address] [place] [address] PCP - General FAMILY PRACTICE 06/15/17 10/14/19 Asa Mcnamara MD [facility]. [facility] [address] [place] [address] [place] Cable Swager CARDIOVASCULAR DISEASE 05/15/16 documented as of this encounter
--- OUTSIDE RECORDS SUMMARY | 2024-11-12 04:49 | XMS_ITS | Encounter Summary ---
Author Organization [facility] Address [address] [facility] [place] [address] [place] [address] Care Team Providers Care Jack Spooler Tender Name Role Phone Dane Sullivan Primary Care Provider [phone] Aas Mcnamara MD Unavailable [phone] Encounter Details Date Type Department Care Team (Late st Contact Info) Description 06/04/2016 Orders Only [facility] AT [address] [address] Asa Mcnamara MD [address] [address] Social History Tobacco Use Types Packs/Day Years Used Date Smoking Tobacco: Every Day Cigarettes Smokeless Tobacco: Never Alcohol Use Standard Drinks/Week Comments No 0 (1 standard drink = 0.6 oz pur e alcohol) Comments Unknown Sex and Gender Information Value Date Recorded Sex Assigned at Female 12/06/2019 3:36 PM CASE PACKER Legal Sex Female 5:20 PM CDT Gender Identity Female 12/06/2019 3:36 PM CASE PACKER Sexual Orientation Straight 12/06/2019 3: 36 PM CASE PACKER 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 [address] [place] [address] [place] Machine Greaser CARDIOVASCULAR DISEASE 05/15/16 documented as of this encounter
--- OUTSIDE RECORDS SUMMARY | 2024-11-12 04:50 | XMS_ITS | Encounter Summary ---
Author Organization [facility] Address [address] [facility] [place], [place] [address] [place] [address] Care Team Providers Care Fender Finisher Name Role Phone Dane Sullivan DO Primary Care Provider + [phone] Asa Mcnamara MD Unavailable [phone] Deisi Andrews MD Primary Care Provider [phone] Heber Adorno MD Primary Care Provider Unavailable Dane Sullivan DO Primary Care Provider + [phone] Dane Sullivan DO Primary Care Provider + [phone] Dane Sullivan DO Primary Care Provider + [phone] Dane Sullivan DO Primary Care Provider + [phone] Dane Sullivan DO Primary Care Provider + [phone] Heber Adorno MD Primary Care Provider Unavailable Deisi Andrews MD Primary Care Provider [phone] Encounter Details Date Type Department Care Team (Late st Contact Info) Description 03/05/2010 Abstract [facility] [place] [address] Heber Adorno MD Social History Tobacco Use Types Packs/Day Years Used Date Smoking Tobacco: Never Assessed Comments Unknown Sex and Gender Information Value Date Recorded Sex Assigned at Female 12/06/2019 3:36 PM TIMBER SURVEYOR Legal Sex Female 5:20 PM CDT Gender Identity Female 12/06/2019 3:36 PM TIMBER SURVEYOR Sexual Orientation Straight 12/06/2019 3: 36 PM TIMBER SURVEYOR documented as of this encounter Plan of Treatment Not on file documented as of this encounter Visit Diagnoses Not on filedocumented in this encounter Care Teams Fender Finisher Relationship Specialty Start Date End Date Dane Sullivan DO PCP - General FAMILY PRACTICE 05/15/16 02/11/17 Deisi Andrews MD [address] [place] [address] PCP - General FAMILY PRACTICE 02/13/17 03/10/17 Heber Adorno MD PCP - General 03/11/17 06/14/17 Dane Sullivan DO PCP - General 05/04/16 05/14/16 Dane Sullivan DO PCP - General 04/17/16 05/03/16 Dane Sullivan DO PCP - General 03/26/16 04/16/16 Dane Sullivan DO PCP - General 11/12/15 03/25/16 Dane Sullivan DO PCP - General 09/24/15 11/11/15 Heber Adorno MD PCP - General 06/27/15 09/23/15 Deisi Andrews MD [address] [place] [address] PCP - General FAMILY PRACTICE 06/15/17 10/14/19 Asa Mcnamara MD [facility] [address] [place] [address] [place] Pattern Lease Inspector CARDIOVASCULAR DISEASE 05/15/16 documented as of this encounter
--- OUTSIDE RECORDS SUMMARY | 2024-11-12 04:50 | XMS_ITS | Encounter Summary ---
Author Organization [facility] Address [address] [facility]. [place], [place] [address] [place] [address] Care Team Providers Care Tool Repairer Bench Name Role Phone Dane Sullivan DO Primary Care Provider + [phone] Asa Mcnamara MD Unavailable +[phone] Deisi Andrews MD Primary Care Provider +[phone] Heber Adorno MD Primary Care Provider Unavailable Dane Sullivan DO Primary Care Provider + [phone] Dane Sullivan DO Primary Care Provider + [phone] Dane Sullivan DO Primary Care Provider + [phone] Dane Sullivan DO Primary Care Provider + [phone] Dane Sullivan DO Primary Care Provider + [phone] Heber Adorno MD Primary Care Provider Unavailable Deisi Andrews MD Primary Care Provider [phone] Neva Holden MD Primary Care Provider +[phone] Deisi Andrews MD Primary Care Provider +[phone] Neva Holden MD Primary Care Provider +[phone] Encounter Details Date Type Department Care Team (Late st Contact Info) Description 10/11/2006 Abstract [facility] [address] [place] [address] [place], [place] [id number] Heber Adorno MD Social History Tobacco Use Types Packs/Day Years Used Date Smoking Tobacco: Never Assessed Comments Unknown Sex and Gender Information Value Date Recorded Sex Assigned at Female 12/06/2019 3:36 PM CAREER DEVELOPMENT SPECIALIST Legal Sex Female 5:20 PM CDT Gender Identity Female 12/06/2019 3:36 PM CAREER DEVELOPMENT SPECIALIST Sexual Orientation Straight 12/06/2019 3: 36 PM CAREER DEVELOPMENT SPECIALIST COVID-19 Exposure Response Date Recorded In the last month, have you been in contact with someone who was confirmed or suspected to have Coronavirus / COVID-19? Unable to assess 06/14/2020 2:13 PM CDT documented as of this encounter Plan of Treatment Not on file documented as of this encounter Visit Diagnoses Not on filedocumented in this encounter Care Teams Tool Repairer Bench Relationship Specialty Start Date End Date Dane Sullivan DO PCP - General FAMILY PRACTICE 05/15/16 02/11/17 Deisi Andrews MD [address] [place] [address] [place] [address] PCP - General FAMILY PRACTICE 02/13/17 03/10/17 [...] General 06/27/15 09/23/15 Deisi Andrews MD [address] [place] [address] PCP - General FAMILY PRACTICE 06/15/17 10/14/19 Neva Holden MD [facility] [address] [place] [address] PCP - General FAMILY PRACTICE 10/15/19 12/05/19 Deisi Andrews MD [address] [place] [address] PCP - General FAMILY PRACTICE 12/06/19 02/13/20 Neva Holden MD . [facility] [address] [place] [address] PCP - General FAMILY PRACTICE 02/14/20 Asa Mcnamara MD [facility]. [address] [place] [address] Walker Ocean Forwarder CARDIOVASCULAR DISEASE 05/15/16 documented as of this encounter
--- OUTSIDE RECORDS SUMMARY | 2024-11-12 04:50 | XMS_ITS | Encounter Summary ---
Author Organization [facility] Address [address] [facility]. [place], [place] [address] [place] [address] Care Team Providers Care Siebel Administrator Name Role Phone Dane Sullivan DO Primary Care Provider + [phone] Asa Mcnamara MD Unavailable +[phone] Deisi Andrews MD Primary Care Provider [phone] Heber Adorno MD Primary Care Provider Unavailable Dane Sullivan DO Primary Care Provider + [phone] Dane Sullivan DO Primary Care Provider + [phone] Dane Sullivan DO Primary Care Provider + [phone] Dane Sullivan DO Primary Care Provider + [phone] Dane Sullivan DO Primary Care Provider + [phone] Heber Adorno MD Primary Care Provider Unavailable Deisi Andrews MD Primary Care Provider +[phone] Encounter Details Date Type Department Care Team (Late st Contact Info) Description 07/16/2002 Emergency [facility] [place] [address] Heber Adorno MD Social History Tobacco Use Types Packs/Day Years Used Date Smoking Tobacco: Never Assessed Comments Unknown Sex and Gender Information Value Date Recorded Sex Assigned at Female 12/06/2019 3:36 PM PRESALES ENGINEER Legal Sex Female 5:20 PM CDT Gender Identity Female 12/06/2019 3:36 PM PRESALES ENGINEER Sexual Orientation Straight 12/06/2019 3: 36 PM PRESALES ENGINEER documented as of this encounter Plan of Treatment Not on file documented as of this encounter Visit Diagnoses Not on filedocumented in this encounter Care Teams Siebel Administrator Relationship Specialty Start Date End Date Dane Sullivan DO PCP - General FAMILY PRACTICE 05/15/16 02/11/17 Deisi Andrews MD [address] [place] [address] PCP - General FAMILY PRACTICE 02/13/17 03/10/17 [...] - General 06/27/15 09/23/15 Deisi Andrews MD [address] [place] [address] [place] [address] PCP - General FAMILY PRACTICE 06/15/17 10/14/19 Asa Mcnamara MD [facility]. [facility] [address] [place] [address] [place] Coding Consultant CARDIOVASCULAR DISEASE 05/15/16 documented as of this encounter
--- OUTSIDE RECORDS SUMMARY | 2024-11-12 04:50 | XMS_ITS | Encounter Summary ---
Author Organization [facility] Address [address] [facility]. [place], [place] [address] [place] [address] Care Team Providers Care Maintenance Manager Name Role Phone Dane Sullivan DO Primary Care Provider + [phone] Asa Mcnamara MD Unavailable +[phone] Deisi Andrews MD Primary Care Provider [phone] Heber Adorno MD Primary Care Provider Unavailable Dane Sullivan DO Primary Care Provider + [phone] Dane Sullivan DO Primary Care Provider + [phone] Dane Sullivan DO Primary Care Provider + [phone] Dane Sullivan DO Primary Care Provider + [phone] Dane Sullivan DO Primary Care Provider + [phone] Heber Adonro MD Primary Care Provider Unavailable Deisi Andrews MD Primary Care Provider +[phone] Encounter Details Date Type Department Care Team (Late st Contact Info) Description 08/25/2004 Abstract [facility] [place] [address] Heber Adorno MD Social History Tobacco Use Types Packs/Day Years Used Date Smoking Tobacco: Never Assessed Comments Unknown Sex and Gender Information Value Date Recorded Sex Assigned at Female 12/06/2019 3:36 PM CARTOGRAPHY/MAPPING TECHNICIAN Legal Sex Female 5:20 PM CDT Gender Identity Female 12/06/2019 3:36 PM CARTOGRAPHY/MAPPING TECHNICIAN Sexual Orientation Straight 12/06/2019 3: 36 PM CARTOGRAPHY/MAPPING TECHNICIAN documented as of this encounter Plan of Treatment Not on file documented as of this encounter Visit Diagnoses Not on filedocumented in this encounter Care Teams Maintenance Manager Relationship Specialty Start Date End Date Dane Sullivan DO PCP - General FAMILY PRACTICE 05/15/16 02/11/17 Deisi Andrews MD [address] [place] [address] PCP - General FAMILY PRACTICE 02/13/17 03/10/17 [...] - General 06/27/15 09/23/15 Deisi Andrews MD [address] [place] [address] [place] [address] PCP - General FAMILY PRACTICE 06/15/17 10/14/19 Asa Mcnamara MD [facility]. [facility] [address] [place] [address] Moriarty Capsule Filling Machine Operator CARDIOVASCULAR DISEASE 05/15/16 documented as of this encounter
--- OUTSIDE RECORDS SUMMARY | 2024-11-12 04:50 | XMS_ITS | Encounter Summary ---
Author Organization [facility] Address [address] [facility]. [place], [place] [address] [place] [address] Care Team Providers Care Cementer Machine Joiner Name Role Phone Dane Sullivan DO Primary Care Provider + [phone] Asa Mcnamara MD Unavailable +[phone] Deisi Andrews MD Primary Care Provider +[phone] Heber Adorno MD Primary Care Provider Unavailable Dane Sullivan DO Primary Care Provider + [phone] Dane Sullivan DO Primary Care Provider + [phone] Dane Sullivan DO Primary Care Provider + [phone] Dane Sullivan DO Primary Care Provider + [phone] Dane Sullivan DO Primary Care Provider + [phone] Heber Adorno MD Primary Care Provider Unavailable Deisi Andrews MD Primary Care Provider +[phone] Encounter Details Date Type Department Care Team (Late st Contact Info) Description 11/20/[address] [place] [address] Heber Adorno MD Social History Tobacco Use Types Packs/Day Years Used Date Smoking Tobacco: Never Assessed Comments Unknown Sex and Gender Information Value Date Recorded Sex Assigned at Female 12/06/2019 3:36 PM PHYSICS AND ASTRONOMY PROFESSOR Legal Sex Female 5:20 PM CDT Gender Identity Female 12/06/2019 3:36 PM PHYSICS AND ASTRONOMY PROFESSOR Sexual Orientation Straight 12/06/2019 3: 36 PM PHYSICS AND ASTRONOMY PROFESSOR documented as of this encounter Plan of Treatment Not on file documented as of this encounter Visit Diagnoses Not on filedocumented in this encounter Care Teams Cementer Machine Joiner Relationship Specialty Start Date End Date Dane Sullivan DO PCP - General FAMILY PRACTICE 05/15/16 02/11/17 Deisi Andrews MD [address] [place] [address] PCP - General FAMILY PRACTICE 02/13/17 03/10/17 [...] - General 06/27/15 09/23/15 Deisi Andrews MD [address] [place] [address] [place] [address] PCP - General FAMILY PRACTICE 06/15/17 10/14/19 Asa Mcnamara MD [facility]. [facility] [address] [place] [address] Eden Cafeteria Cook CARDIOVASCULAR DISEASE 05/15/16 documented as of this encounter
--- OUTSIDE RECORDS SUMMARY | 2024-11-12 04:50 | XMS_ITS | Encounter Summary ---
Author Organization [facility] Address [address] [facility]. [place], [place] [address] [place] [address] Care Team Providers Care Gear Grinder Name Role Phone Dane Sullivan DO Primary Care Provider + [phone] Asa Mcnamara MD Unavailable +[phone] Deisi Andrews MD Primary Care Provider +[phone] Heber Adorno MD Primary Care Provider Unavailable Dane Sullivan DO Primary Care Provider + [phone] Dane Sullivan DO Primary Care Provider + [phone] Dane Sullivan DO Primary Care Provider + [phone] Dane Sullivan DO Primary Care Provider + [phone] Dane Sullivan DO Primary Care Provider + [phone] Heber Adorno MD Primary Care Provider Unavailable Deisi Andrews MD Primary Care Provider +[phone] Encounter Details Date Type Department Care Team (Late st Contact Info) Description 07/18/2010 Abstract [facility] [place] [address] Heber Adorno MD Social History Tobacco Use Types Packs/Day Years Used Date Smoking Tobacco: Never Assessed Comments Unknown Sex and Gender Information Value Date Recorded Sex Assigned at Female 12/06/2019 3:36 PM CANNED FOOD RECONDITIONING INSPECTOR Legal Sex Female 5:20 PM CDT Gender Identity Female 12/06/2019 3:36 PM CANNED FOOD RECONDITIONING INSPECTOR Sexual Orientation Straight 12/06/2019 3: 36 PM CANNED FOOD RECONDITIONING INSPECTOR documented as of this encounter Plan of Treatment Not on file documented as of this encounter Visit Diagnoses Not on filedocumented in this encounter Care Teams Gear Grinder Relationship Specialty Start Date End Date Dane Sullivan DO PCP - General FAMILY PRACTICE 05/15/16 02/11/17 Deisi Andrews MD [address] [place] [address] PCP - General FAMILY PRACTICE 02/13/17 03/10/17 [...] General 06/27/15 09/23/15 Deisi Andrews MD [address] [place] [address] PCP - General FAMILY PRACTICE 06/15/17 10/14/19 Asa Mcnamara MD [facility] [address] [place] [address] Marshall Laborer Tree Tapping CARDIOVASCULAR DISEASE 05/15/16 documented as of this encounter
--- OUTSIDE RECORDS SUMMARY | 2024-11-12 04:50 | XMS_ITS | Encounter Summary ---
Author Organization [facility] Address [facility]. [place], [place] [address] [place] [address] Care Team Providers Care Matrix Worker Name Role Phone Dane Sullivan DO Primary Care Provider + [phone] Asa Mcnamara MD Unavailable [phone] Deisi nAdrews MD Primary Care Provider +[phone] Heber Adorno MD Primary Care Provider Unavailable Dane Sullivan DO Primary Care Provider + [phone] Dane Sulilvan DO Primary Care Provider + [phone] Dane Sullivan DO Primary Care Provider + [phone] Dane Sullivan DO Primary Care Provider + [phone] Deisi Andrews MD Primary Care Provider +[phone] Encounter Details Date Type Department Care Team (Latest Contact Info) Description 11/13/2015 Abstract [facility] Social History Tobacco Use Types Packs/Day Years Used Date Smoking Tobacco: Never Assessed Comments Unknown Sex and Gender Information Value Date Recorded Sex Assigned at Female 12/06/2019 3:36 PM SENIOR INTERNAL AUDITOR Legal Sex Female 5:20 PM CDT Gender Identity Female 12/06/2019 3:36 PM SENIOR INTERNAL AUDITOR Sexual Orientation Straight 12/06/2019 3: 36 PM SENIOR INTERNAL AUDITOR documented as of this encounter Progress Notes * DO Steffany Nguyen 11/13/2015 7:04 AM CST Message Your cholesterol numbers are much better now Please continue with your current meds Thanks Dr Sullivan Verified Results ALT ( SGPT ) [id number] 10:21AM Dane Sullivan Test Name Result Flag Reference ALT/GPT 16 IU/L 0-33 AST ( SGOT ) [id number] 10:21AM Dane Sullivan Test Name Result Flag Reference AST/GOT 12 IU/L 0-32 Lipid Profile [id number] 10:21AM Dane Sullivan Test Name Result Flag Reference Cholesterol 204 mg/dL H <200 NOTE: Acetaminophen, N Acetyl p benzoquinone imine (NAPQI), N acetylcysteine (NAC), Metamizole, 4 Aminoantipyrine (4 AAP) and 4 Methylamino antipyrine (4 MAP) at high concentrations can cause falsely low results on Lactate, Uric Acid, Cholesterol, Triglyceride, HDL, and Direct LDL. Triglycerides 203 mg/dL H <150 HDL Cholesterol 48 mg/dL L >59 LDL Cholesterol, Calculated 115 mg/dL H <100 Non HDL, Calc 156 mg/dL H <130 NOTE: WHEN THE TRIGLYCERIDES ARE >200 mg/dL, NON HDL C IS A SECONDARY TARGET OF THERAPY, WITH A GOAL 30 mg/dL HIGHER THAN THE IDENTIFIED LDL C GOAL. Cholesterol/HDL Ratio 4.3 0.0-4.5 VLDL Cholesterol 41 mg/dL 5-55 Lipid Profile Comment 1 (Report) NIH CONCENSUS REPORT RECOMMENDATIONS: ADULT CHILD LOW RISK: CHOLESTEROL <200 <170 TRIGLYCERIDE <150 --- HDL >=60 --- LDL <100 <110 BORDERLINE: CHOLESTEROL 200-239 170-199 TRIGLYCERIDE 150-199 --- HDL 40-59 --- LDL 100-159 110-129 HIGH RISK: CHOLESTEROL >=240 >=200 TRIGLYCERIDE >=200 --- HDL <40 --- LDL >=160 >=130 documented in this encounter Plan of Treatment Not on file documented as of this encounter Visit Diagnoses Not on filedocumented in this encounter Care Teams Matrix Worker Relationship Specialty Start Date End Date Dane Sullivan DO PCP - General FAMILY PRACTICE 05/15/16 02/11/17 Deisi Andrews MD [address] [place] [address] PCP - General FAMILY PRACTICE 02/13/17 03/10/17 Heber Adorno MD PCP - General 03/11/17 06/14/17 Dane Sullivan DO PCP - General 05/04/16 05/14/16 Dane Sullivan DO PCP - General 04/17/16 05/03/16 Dane Sullivan DO PCP - General 03/26/16 04/16/16 Dane Sullivan DO PCP - General 11/12/15 03/25/16 Deisi Andrews MD [address] [place] [address] PCP - General FAMILY PRACTICE 06/15/17 10/14/19 Asa Mcnamara MD [facility]. [address] [place] [address] [place] Pump Technician CARDIOVASCULAR DISEASE 05/15/16 documented as of this encounter
--- OUTSIDE RECORDS SUMMARY | 2024-11-12 04:50 | XMS_ITS | Encounter Summary ---
Author Organization [facility] Address [address] [facility]. [place], [place] [address] [place] [address] Care Team Providers Care Manager Safe Name Role Phone Dane Sullivan DO Primary Care Provider + [phone] Asa Mcnamara MD Unavailable [phone] Deisi Andrews MD Primary Care Provider [phone] Heber Adorno MD Primary Care Provider Unavailable Dane Sullivan DO Primary Care Provider + [phone] Dane Sullivan DO Primary Care Provider + [phone] Dane Sullivan DO Primary Care Provider + [phone] Dane Sullivan DO Primary Care Provider + [phone] Dane Sullivan DO Primary Care Provider + [phone] Heber Adorno MD Primary Care Provider Unavailable Deisi Andrews MD Primary Care Provider +- [phone] Neva Holden MD Primary Care Provider +[phone] Deisi Andrews MD Primary Care Provider +[phone] Neva Holden MD Primary Care Provider [phone] Encounter Details Date Type Department Care Team (Late st Contact Info) Description 01/27/2007 Abstract [facility] [address] [facility] [address] Danielle Hargrove DO [address] [id number] Social History Tobacco Use Types Packs/Day Years Used Date Smoking Tobacco: Never Assessed Comments Unknown Sex and Gender Information Value Date Recorded Sex Assigned at Female 12/06/2019 3:36 PM FINANCIAL MANAGEMENT ANALYST Legal Sex Female 5:20 PM CDT Gender Identity Female 12/06/2019 3:36 PM FINANCIAL MANAGEMENT ANALYST Sexual Orientation Straight 12/06/2019 3: 36 PM FINANCIAL MANAGEMENT ANALYST COVID-19 Exposure Response Date Recorded In the last month, have you been in contact with someone who was confirmed or suspected to have Coronavirus / COVID-19? Unable to assess 06/14/2020 2:13 PM CDT documented as of this encounter Plan of Treatment Not on file documented as of this encounter Visit Diagnoses Not on filedocumented in this encounter Care Teams Manager Safe Relationship Specialty Start Date End Date Dane Sullivan DO PCP - General FAMILY PRACTICE 05/15/16 02/11/17 Deisi Andrews MD [address] [place] [address] [place] [address] PCP - General FAMILY PRACTICE 02/13/17 03/10/17 Heber Adorno MD PCP - General 03/11/17 06/14/17 Dane Sullivan DO PCP - General 05/04/16 05/14/16 Dane Sullivan DO PCP - General 04/17/16 05/03/16 Dane Sullivan DO PCP - General 03/26/16 04/16/16 Dane Sullivan DO PCP - General 11/12/15 03/25/16 Dane Slulivan DO PCP - General 09/24/15 11/11/15 Heber Adorno MD PCP - General 06/27/15 09/23/15 Deisi Andrews MD [address] [place] [address] PCP - General FAMILY PRACTICE 06/15/17 10/14/19 Neva Holden MD [facility] [address] [place] [address] PCP - General FAMILY PRACTICE 10/15/19 12/05/19 Deisi Andrews MD [address] [place] [address] PCP - General FAMILY PRACTICE 12/06/19 02/13/20 Neva Holden MD [facility] [address] [place] [address] PCP - General FAMILY PRACTICE 02/14/20 Asa Mcnamara MD [facility]. [address] [place] [address] Stephen Shift Manager CARDIOVASCULAR DISEASE 05/15/16 documented as of this encounter
--- OUTSIDE RECORDS SUMMARY | 2024-11-12 04:50 | XMS_ITS | Encounter Summary ---
Author Organization [facility] Address [address] [facility]. [place], [place] [address] [place] [address] Care Team Providers Care Shell Mold Bonding Machine Operator Name Role Phone Dane Sullivan DO Primary Care Provider + [phone] Asa Mcnamara MD Unavailable +[phone] Deisi Andrews MD Primary Care Provider [phone] Heber Adorno MD Primary Care Provider Unavailable Dane Sullivan DO Primary Care Provider + [phone] Dane Sullivan DO Primary Care Provider + [phone] Dane Sullivan DO Primary Care Provider + [phone] Dane Sullivan DO Primary Care Provider + [phone] Dane Sullivan DO Primary Care Provider + [phone] Heber Adorno MD Primary Care Provider Unavailable Deisi Andrews MD Primary Care Provider +[phone] Encounter Details Date Type Department Care Team (Late st Contact Info) Description 02/18/2010 Abstract [facility] [place] [address] Heber Adorno MD Social History Tobacco Use Types Packs/Day Years Used Date Smoking Tobacco: Never Assessed Comments Unknown Sex and Gender Information Value Date Recorded Sex Assigned at Female 12/06/2019 3:36 PM TREE CARE FOREMAN Legal Sex Female 5:20 PM CDT Gender Identity Female 12/06/2019 3:36 PM TREE CARE FOREMAN Sexual Orientation Straight 12/06/2019 3: 36 PM TREE CARE FOREMAN documented as of this encounter Plan of Treatment Not on file documented as of this encounter Visit Diagnoses Not on filedocumented in this encounter Care Teams Shell Mold Bonding Machine Operator Relationship Specialty Start Date End Date Dane Sullivan DO PCP - General FAMILY PRACTICE 05/15/16 02/11/17 Deisi Andrews MD [address] [place] [address] PCP - General FAMILY PRACTICE 02/13/17 03/10/17 [...] General 06/27/15 09/23/15 Deisi Andrews MD [address] [place] [address] PCP - General FAMILY PRACTICE 06/15/17 10/14/19 Asa Mcnamara MD [facility] [address] [place] [address] Gustavus Santa'S Helper CARDIOVASCULAR DISEASE 05/15/16 documented as of this encounter
--- OUTSIDE RECORDS SUMMARY | 2024-11-12 04:50 | XMS_ITS | Encounter Summary ---
Author Organization [facility] Address [address] [facility]. [place], [place] [address] [place] [address] Care Team Providers Care Dialysis Technician Name Role Phone Dane Sullivan DO Primary Care Provider + [phone] Asa Mcnamara MD Unavailable [phone] SullivanDane L DO Primary Care Provider + [phone] SullivanFarnazDane L DO Primary Care Provider + [phone] SullivanFarnazDane L DO Primary Care Provider + [phone] Sullivan Dane L DO Primary Care Provider + [phone] Sullivan Dane L DO Primary Care Provider + [phone] Heber Adorno MD Primary Care Provider Unavailable Encounter Details Date Type Department Care Team (Late st Contact Info) Description 03/07/2014 Abstract [facility] [address] [place] [address] Md Generic MD Vivi Social History Tobacco Use Types Packs/Day Years Used Date Smoking Tobacco: Never Assessed Comments Unknown Sex and Gender Information Value Date Recorded Sex Assigned at Female 12/06/2019 3:36 PM MOLDED CANDLES WICKER Legal Sex Female 5:20 PM CDT Gender Identity Female 12/06/2019 3:36 PM MOLDED CANDLES WICKER Sexual Orientation Straight 12/06/2019 3: 36 PM MOLDED CANDLES WICKER documented as of this encounter Plan of Treatment Not on file documented as of this encounter Visit Diagnoses Not on filedocumented in this encounter Care Teams Dialysis Technician Relationship Specialty Start Date End Date Dane Sullivan DO PCP - General FAMILY PRACTICE 05/15/16 02/11/17 Dane Sullivan DO PCP - General 05/04/16 05/14/16 Dane Sullivan DO PCP - General 04/17/16 05/03/16 Dane Sullivan DO PCP - General 03/26/16 04/16/16 Dane Sullivan DO PCP - General 11/12/15 03/25/16 Dane Sullivan DO PCP - General 09/24/15 11/11/15 Hbeer Adorno MD PCP - General 06/27/15 09/23/15 Asa Mcnamara MD [facility]. [facility] [address] [place] [address] [place] Senior Principal Architect CARDIOVASCULAR DISEASE 05/15/16 documented as of this encounter
--- OUTSIDE RECORDS SUMMARY | 2024-11-12 04:50 | XMS_ITS | Encounter Summary ---
Author Organization [facility] Address [address] [facility]. [place], [place] [address] [place] [address] Care Team Providers Care Rf Manager Name Role Phone Dane Sullivan DO Primary Care Provider + [phone] Asa Mcnamara MD Unavailable [phone] Deisi Andrews MD Primary Care Provider [phone] Md Generic Vivi HUYNH Primary Care Provider Unavailable Dane Sullivan DO Primary Care Provider + [phone] Dane Sullivan DO Primary Care Provider + [phone] Dane Sullivan DO Primary Care Provider + [phone] Dane Sullivan DO Primary Care Provider + [phone] Dane Sullivan DO Primary Care Provider + [phone] Md Generic Vivi HUYNH Primary Care Provider Unavailable Deisi Andrews MD Primary Care Provider [phone] Encounter Details Date Type Department Care Team (Latest Contact Info) Description 05/10/2015 Abstract [facility] Social History Tobacco Use Types Packs/Day Years Used Date Smoking Tobacco: Never Assessed Comments Unknown Sex and Gender Information Value Date Recorded Sex Assigned at Female 12/06/2019 3:36 PM NUCLEAR CHEMISTRY TECHNICIAN Legal Sex Female 5:20 PM CDT Gender Identity Female 12/06/2019 3:36 PM NUCLEAR CHEMISTRY TECHNICIAN Sexual Orientation Straight 12/06/2019 3: 36 PM NUCLEAR CHEMISTRY TECHNICIAN documented as of this encounter Plan of Treatment Not on file documented as of this encounter Visit Diagnoses Not on filedocumented in this encounter Care Teams Rf Manager Relationship Specialty Start Date End Date Dane Sullivan DO PCP - General FAMILY PRACTICE 05/15/16 02/11/17 Deisi Andrews MD [address] [place] [address] PCP - General FAMILY PRACTICE 02/13/17 03/10/17 Heber Huynh MD PCP - General 03/11/17 06/14/17 Dane Sullivan DO PCP - General 05/04/16 05/14/16 Dane Sullivan DO PCP - General 04/17/16 05/03/16 Dane Sullivan DO PCP - General 03/26/16 04/16/16 Dane Sullivan DO PCP - General 11/12/15 03/25/16 Dane Sullivan DO PCP - General 09/24/15 11/11/15 Heber Huynh MD PCP - General 06/27/15 09/23/15 Deisi Andrews MD [address] [place] [address] PCP - General FAMILY PRACTICE 06/15/17 10/14/19 Asa Mcnamara MD [facility]. [facility] [address] [place] [address] [place] [address] Gate Cutter CARDIOVASCULAR DISEASE 05/15/16 documented as of this encounter
--- OUTSIDE RECORDS SUMMARY | 2024-11-12 04:50 | XMS_ITS | Encounter Summary ---
Author Organization [facility] Address [address] [facility]. [place], [place] [address] [place] [address] Care Team Providers Care Extension Forester Name Role Phone Dane Sullivan DO Primary Care Provider + [phone] Asa Mcnamara MD Unavailable +[phone] Deisi Andrews MD Primary Care Provider [phone] Heber Adorno MD Primary Care Provider Unavailable Dane Sullivan DO Primary Care Provider + [phone] Dane Sullivan DO Primary Care Provider + [phone] Dane Sullivan DO Primary Care Provider + [phone] Dane Sullivan DO Primary Care Provider + [phone] Dane Sullivan DO Primary Care Provider + [phone] Heber Adorno MD Primary Care Provider Unavailable Deisi Andrews MD Primary Care Provider [phone] Encounter Details Date Type Department Care Team (Late st Contact Info) Description 03/18/2010 Abstract [facility] [address] Heber Adorno MD Social History Tobacco Use Types Packs/Day Years Used Date Smoking Tobacco: Never Assessed Comments Unknown Sex and Gender Information Value Date Recorded Sex Assigned at Female 12/06/2019 3:36 PM ANTIQUE JEWELRY REPAIRER Legal Sex Female 5:20 PM CDT Gender Identity Female 12/06/2019 3:36 PM ANTIQUE JEWELRY REPAIRER Sexual Orientation Straight 12/06/2019 3: 36 PM ANTIQUE JEWELRY REPAIRER documented as of this encounter Plan of Treatment Not on file documented as of this encounter Visit Diagnoses Not on filedocumented in this encounter Care Teams Extension Forester Relationship Specialty Start Date End Date Dane Sullivan DO PCP - General FAMILY PRACTICE 05/15/16 02/11/17 Deisi Andrews MD [address] [place] [address] PCP - General FAMILY PRACTICE 02/13/17 03/10/17 [...] General 06/27/15 09/23/15 Deisi Andrews MD [address] [place] [address] PCP - General FAMILY PRACTICE 06/15/17 10/14/19 Asa Mcnamara MD [facility] [address] [place] [address] [place] Results Engineer CARDIOVASCULAR DISEASE 05/15/16 documented as of this encounter
--- OUTSIDE RECORDS SUMMARY | 2024-11-12 04:50 | XMS_ITS | Encounter Summary ---
Author Organization [facility] Address [address] [facility] [place] [address] [place] [address] Care Team Providers Care Pool Installer Name Role Phone Dane Sullivan DO Primary Care Provider + [phone] Asa Mcnamara MD Unavailable [phone] Deisi Andrews MD Primary Care Provider [phone] Heber Huynh MD Primary Care Provider Unavailable Dane Sullivan DO Primary Care Provider + [phone] Dane Sullivan DO Primary Care Provider + [phone] aDne Sullivan DO Primary Care Provider + [phone] Dane Sullivan DO Primary Care Provider + [phone] Dane Sullivan DO Primary Care Provider + [phone] Deisi Andrews MD Primary Care Provider [phone] Encounter Details Date Type Department Care Team (Late st Contact Info) Description 09/24/[address] [facility] [place] [address] Dane Sullivan DO [address] [facility] [place] [id number] Social History Tobacco Use Types Packs/Day Years Used Date Smoking Tobacco: Never Assessed Comments Unknown Sex and Gender Information Value Date Recorded Sex Assigned at Female 12/06/2019 3:36 PM NIGHT GUARD Legal Sex Female 5:20 PM CDT Gender Identity Female 12/06/2019 3:36 PM NIGHT GUARD Sexual Orientation Straight 12/06/2019 3: 36 PM NIGHT GUARD documented as of this encounter Plan of Treatment Not on file documented as of this encounter Procedures Procedure Name Priority Date/Time Associated Diagnosis Comments TSH W/REFLEX Routine 09/24/2015 1:45 PM NIGHT GUARD ALBUMIN URINE RANDOM W/CREATININE Routine 09/24/2015 1:45 PM NIGHT GUARD COMPREHENSIVE METABOLIC PANEL Routine 09/24/2015 1:45 PM NIGHT GUARD LIPID PANEL Routine 09/24/2015 1:45 PM NIGHT GUARD documented in this encounter Results * (ABNORMAL) MICROALBUMIN URINE RANDOM (09/24/2015 1:45 PM NIGHT GUARD) MICROALBUMIN (U) 7.9(H) <2.0 mg/dL 09/24/20 15 9:34 PM NIGHT GUARD [facility] CREATININE (U) 125 28 - 217 mg/dL 09/24/2015 9:34 PM NIGHT GUARD [facility] ALBUMIN/CREAT RATIO 63.2(H) <30 MG/G 09/24/2015 9:34 PM NIGHT GUARD [facility] 09/24/2015 1:45 PM NIGHT GUARD 09/24/2015 9:15 PM NIGHT GUARD us Generic Conversion Md HUYNH URINE ORDERABLES Final Result [facility] [address] [place] [address], * TSH W/REFLEX (SNS) (09/24/2015 1:45 PM NIGHT GUARD) TSH 0.30 0.27 - 4.20 mIU/mL 09/24/2015 9:47 PM NIGHT GUARD [facility] Comment:FREE T4 NOT INDICATE D SERUM OR PLASMA SPECIMEN / Unknown 09/24/2015 1:45 PM NIGHT GUARD 09/24/2015 9:14 PM NIGHT GUARD us Generic Conversion Md HUYNH LABORATORY Final R esult [facility] [address] [place] [id number], * (ABNORMAL) LIPID PANEL (09/24/2015 1:45 PM NIGHT GUARD) LIPID INTERPRETATION 09/24/2015 9:47 PM NIGHT GUARD [facility] Comment: NIH CONCENSUS REPORT RECOMMENDATIONS: ?ADULT ?CHILD ??LOW RISK: ?CHOLESTEROL ? <200 ? <170 ?TRIGLYCERIDE ?<150 ?--- ?HDL ? >=60 ?--- ?LDL ? <100 ? <110 ??BORDERLINE: ?CHOLESTEROL ? 200-239 ?? 170-199 ?TRIGLYCERIDE ?150-199 ? --- ?HDL ?40-59 ?--- ?LDL ? 100-159 ?? 110-129 ??HIGH RISK: ?CHOLESTEROL ? >=240 ?>=200 ?TRIGLYCERIDE ?>=200 ? --- ?HDL ?<40 ?--- ?LDL ? >=160 ?>=130 CHOL/HDL RATIO 5.9(H) 0.0 - 4.5 09/24/2015 9:47 PM [facility] CHOLESTEROL 224(H) <200 mg/dL 09/24/2015 9:47 PM [facility] Comment: NOTE: Acetaminophen, N Acetyl p benzoquinone imine (NAPQI), N acetylcysteine (NAC), Metamizole, 4 Aminoantipyrine (4 AAP) and 4 Methylamino antipyrine (4 MAP) at high concentrations can cause falsely low results on Lactate, Uric Acid, Cholesterol, Triglyceride, HDL, and Direct LDL. HDL 38(L) >59 mg/dL 09/24/2015 9:47 PM [facility] DIRECT LDL NOT CALCULATED <100 mg/dL 09/24/2015 9:47 PM [facility] Comment:TRIGLYCERIDE >400 IN VALIDATES FRACTIONATION. NON HDL CHOLESTEROL 186(H) <130 mg/dL 09/24/2015 9:47 PM [facility] Comment: NOTE: WHEN THE TRIGLYCERIDES ARE >200 mg/dL, NON HDL C IS A SECONDARY TARGET OF THERAPY, WITH A GOAL 30 mg/dL HIGHER THAN THE IDENTIFIED LDL C GOAL. TRIGLYCERIDES 520(H) <150 mg/dL 09/24/2015 9:47 PM [facility] VLDL CALCULATION NOT CALCULATED 5 - 55 mg/dL 09/24/2015 9:47 PM [facility] Comment:TRIGLYCERIDE >400 IN VALIDATES FRACTIONATION. 09/24/2015 1:45 PM NIGHT GUARD 09/24/2015 9:14 PM NIGHT GUARD us Generic Conversion Md HUYNH LABORATORY Final R esult [facility] [address] [place] [address], * (ABNORMAL) COMPREHENSIVE METABOLIC PANEL (09/24/2015 1:45 PM NIGHT GUARD) GLUCOSE 121(H) 70 - 99 mg/dL 09/24/2015 9:47 PM NIGHT GUARD [facility] BUN 11 8 - 23 mg/dL 09/24/2015 9:47 PM [facility] CREATININE S/P/B 0.71 0.60 - 1.10 mg/dL 09/24/2015 9:47 PM NIGHT GUARD [facility] SODIUM S/P/B 142 136 - 145 mmol/L 09/24/2015 9:47 PM [facility] POTASSIUM S/P/B 3.9 3.5 - 5.1 mmol/L 09/24/2015 9:47 PM [facility] CHLORIDE S/P/B 97(L) 98 - 107 mmol/L 09/24/2015 9:47 PM NIGHT GUARD [facility] CO2 27 22 - 29 mmol/L 09/24/2015 9:47 PM NIGHT GUARD [facility] BILIRUBIN TOTAL S/P/B 0.2 0.2 - 1.2 mg/dL 09/24/2015 9:47 PM [facility] CALCIUM S/P/B 9.7 8.6 - 10.2 mg/dL 09/24/2015 9:47 PM [facility] ALKALINE PHOSPHATASE S/P/B 112(H) 35 - 104 IU/L 09/24/2015 9:47 PM [facility] AST 15 0 - 32 IU/L 09/24/2015 9:47 PM NIGHT GUARD [facility] TOTAL PROTEIN S/P/B 7.7 6.4 - 8.3 g/dL 09/24/2015 9:47 PM [facility] ALBUMIN S/P/B 4.3 3.5 - 5.2 g/dL 09/24/2015 9:47 PM [facility] ALT 14 0 - 33 IU/L 09/24/2015 9:47 PM [facility] GLOBULIN 3.4 2.3 - 3.6 g/dL 09/24/2015 9:47 PM [facility] A/G RATIO 1.3 1.0 - 2.0 09/24/2015 9:47 PM [facility] ANION GAP 22(H) 8 - 20 09/24/2015 9:47 PM [facility] EGFR NON-AFR. AMER. >60 >60 mL/min/1.7 '2 09/24/2015 9:47 PM [facility] EGFR AFR. AMER. >60 >60 mL/min/1.7 [facility] 09/24/2015 9:47 PM [facility] Comment: NOTE: eGFR is not calculated for patients <18 years of age. This is an estimated GFR (CKD EPI) and should not be used for calculating drug doses. 09/24/2015 1:45 PM NIGHT GUARD 09/24/2015 9:14 PM NIGHT GUARD us Generic Conversion Md HUYNH LABORATORY Final R esult [facility] [address] [place] [address], [place] [phone] documented in this encounter Visit Diagnoses Diagnosis Hyperlipidemia Other and unspecified hyperlipidemia documented in this encounter Care Teams Pool Installer Relationship Specialty Start Date End Date Dane Sullivan DO PCP - General FAMILY PRACTICE 05/15/16 02/11/17 Deisi Andrews MD [address] [place] [address] PCP - General FAMILY PRACTICE 02/13/17 03/10/17 Heber Huynh MD PCP - General 03/11/17 06/14/17 Dane Sullivan DO PCP - General 05/04/16 05/14/16 Dane Sullivan DO PCP - General 04/17/16 05/03/16 Dane Sullivan DO PCP - General 03/26/16 04/16/16 Dane Sullivan DO PCP - General 11/12/15 03/25/16 Dane Sullivan DO PCP - General 09/24/15 11/11/15 Deisi Andrews MD [address] [place] [address] PCP - General FAMILY PRACTICE 06/15/17 10/14/19 Asa Mcnamara MD [address] [place] [address] Stephen Medical Supervisor CARDIOVASCULAR DISEASE 05/15/16 documented as of this encounter
--- OUTSIDE RECORDS SUMMARY | 2024-11-12 04:50 | XMS_ITS | Encounter Summary ---
Author Organization [facility] Address [address] [facility] [place] [address] [place] [address] Care Team Providers Care Certified Professional Midwife Name Role Phone Dane Sullivan DO Primary Care Provider + [phone] Asa Mcnamara MD Unavailable [phone] Deisi Andrews MD Primary Care Provider [phone] Md Generic Vivi HUYNH Primary Care Provider Unavailable Dane Sullivan DO Primary Care Provider + [phone] Dane Sullivan DO Primary Care Provider + [phone] Dane Sullivan DO Primary Care Provider + [phone] Dane Sullivan DO Primary Care Provider + [phone] Dane Sullivan DO Primary Care Provider + [phone] Md Generic Vivi HUYNH Primary Care Provider Unavailable Deisi Andrews MD Primary Care Provider [phone] Encounter Details Date Type Department Care Team (Late st Contact Info) Description 06/27/2015 Abstract [facility] [place] [id number] Lorelei Norton MD [address] [facility] [address] [place] [address] Social History Tobacco Use Types Packs/Day Years Used Date Smoking Tobacco: Never Assessed Comments Unknown Sex and Gender Information Value Date Recorded Sex Assigned at Female 12/06/2019 3:36 PM MUSSEL FARMER Legal Sex Female 5:20 PM CDT Gender Identity Female 12/06/2019 3:36 PM MUSSEL FARMER Sexual Orientation Straight 12/06/2019 3: 36 PM MUSSEL FARMER documented as of this encounter Plan of Treatment Not on file documented as of this encounter Visit Diagnoses Diagnosis Thoracic or lumbosacral neuritis or radiculitis Thoracic or lumbosacral neuritis or radiculitis, unspecified documented in this encounter Care Teams Certified Professional Midwife Relationship Specialty Start Date End Date Dane Sullivan DO PCP - General FAMILY PRACTICE 05/15/16 02/11/17 Deisi Andrews MD [address] [place] [address] [place] [address] PCP - General FAMILY PRACTICE 02/13/17 03/10/17 [...] - General 06/27/15 09/23/15 Deisi Andrews MD [address] [place] [address] [place] [address] PCP - General FAMILY PRACTICE 06/15/17 10/14/19 Asa Mcnamara MD [facility]. [facility] [address] [place] [address] Stephen Lead Cytogenetic Technologist CARDIOVASCULAR DISEASE 05/15/16 documented as of this encounter
--- OUTSIDE RECORDS SUMMARY | 2024-11-12 04:50 | XMS_ITS | Encounter Summary ---
Author Organization [facility] Address [address] [facility]. [place], [place] [address] [place] [address] Care Team Providers Care Cargo Services Coordinator Name Role Phone Dane Sullivan DO Primary Care Provider + [phone] Asa Mcnamara MD Unavailable +[phone] Deisi Andrews MD Primary Care Provider [phone] Heber Adorno MD Primary Care Provider Unavailable Dane Sullivan DO Primary Care Provider + [phone] Dane Sullivan DO Primary Care Provider + [phone] Dane Sullivan DO Primary Care Provider + [phone] Dane Sullivan DO Primary Care Provider + [phone] Dane Sullivan DO Primary Care Provider + [phone] Heber Adorno MD Primary Care Provider Unavailable Deisi Andrews MD Primary Care Provider [phone] Encounter Details Date Type Department Care Team (Late st Contact Info) Description 12/17/[address] [facility] [place] [address] Heber Adorno MD Social History Tobacco Use Types Packs/Day Years Used Date Smoking Tobacco: Never Assessed Comments Unknown Sex and Gender Information Value Date Recorded Sex Assigned at Female 12/06/2019 3:36 PM HUMAN RESOURCES FILE CLERK Legal Sex Female 5:20 PM CDT Gender Identity Female 12/06/2019 3:36 PM HUMAN RESOURCES FILE CLERK Sexual Orientation Straight 12/06/2019 3: 36 PM HUMAN RESOURCES FILE CLERK documented as of this encounter Plan of Treatment Not on file documented as of this encounter Visit Diagnoses Not on filedocumented in this encounter Care Teams Cargo Services Coordinator Relationship Specialty Start Date End Date Dane Sullivan DO PCP - General FAMILY PRACTICE 05/15/16 02/11/17 Deisi Andrews MD [address] [place] [address] PCP - General FAMILY PRACTICE 02/13/17 03/10/17 [...] - General 06/27/15 09/23/15 Deisi Andrews MD [address] [place] [address] [place] [address] PCP - General FAMILY PRACTICE 06/15/17 10/14/19 Asa Mcnamara MD [facility]. [facility] [address] [place] [address] Johnson Manager Customs CARDIOVASCULAR DISEASE 05/15/16 documented as of this encounter
--- OUTSIDE RECORDS SUMMARY | 2024-11-12 04:50 | XMS_ITS | Encounter Summary ---
Author Organization [facility] Address [address] [facility] [place] [address] [place] [address] Care Team Providers Care Verify Rep Name Role Phone Dane Sullivan DO Primary Care Provider + [phone] Asa Mcnamara MD Unavailable [phone] Deisi Andrews MD Primary Care Provider [phone] Md Generic Conversion Primary Care Provider Unavailable Dane Sullivan DO Primary Care Provider + [phone] Dane Sullivan DO Primary Care Provider + [phone] Dane Sullivan DO Primary Care Provider + [phone] Dane Sullivan DO Primary Care Provider + [phone] Dane Sullivan DO Primary Care Provider + [phone] Md Generic Vivi HUYNH Primary Care Provider Unavailable Deisi Andrews MD Primary Care Provider [phone] Encounter Details Date Type Department Care Team (Late st Contact Info) Description 07/30/2015 Abstract [facility] Family Medicine - [address] [phone] Dane Sullivan DO [address] [phone] Social History Tobacco Use Types Packs/Day Years Used Date Smoking Tobacco: Never Assessed Comments Unknown Sex and Gender Information Value Date Recorded Sex Assigned at Female 12/06/2019 3:36 PM DRESSAGE JUDGE Legal Sex Female 5:20 PM CDT Gender Identity Female 12/06/2019 3:36 PM DRESSAGE JUDGE Sexual Orientation Straight 12/06/2019 3: 36 PM DRESSAGE JUDGE documented as of this encounter Last Filed Vital Signs Vital Sign Reading Time Taken Comments Blood Pressure 135/84 07/30/2015 1:08 PM CDT Pulse 88 07/30/2015 1:08 PM CDT Temperature - - Respiratory Rate - - Oxygen Saturation - - Inhaled Oxygen Concentration - - Weight 95.4 kg (210 lb 4 oz) 07/30/2015 1:08 PM CDT Height - - Body Mass Index 38.46 04/22/2015 1:10 PM CDT documented in this encounter Progress Notes * Dane Gricel Sullivan, DO - 07/30/2015 1:00 PM CDT History of Present Illness 54yo Wf here for f/u She had numerous labs drawn by her previous PCM orders Dr Garay in May This was done at [facility] She forgot to forward the results to me Since last visit, she has started smoking again DM2, just dx no longer drinking soda unknown A1C, but it was high on metfomin bid, does not need refills Admits she went to [employer] over the weekend and can feel when she has too much sugar However, FBS 140s-180s Pt has COPD/Asthma on qvar daily This past month Ventolin only as needed, about once per week also on singulair and she tolerates these meds denies any CP, SOB or wheezing has HLD on pravastatin 40mg for this does not needd refills Not sure if this was drawn recently HTN on losartan states BP typically is controlled Denies any CP, SOB, Nv Review of systems General: denies any fevers, chills. Gastrointestinal: Patient denies any nausea, vomiting, diarrhea or constipation Cardiovascular: Patient denies Chest pain or SOB Physical Exam General: Well-developed, well-nourished, in no [...] clubbing, cyanosis, or edema noted. Pulses 2+. Neuro: grossly intact. Psych: Normal mood, normal affect Active Problems 1. Anxiety (300.00) (F41.9) 2. Chronic pain (338.29) (G89.29) 3. COPD (chronic obstructive pulmonary disease) (496) (J44.9) 4. History of CVA (cerebrovascular accident) (V12.54) (Z86.73) 5. Hyperlipidemia (272.4) (E78.5) 6. Hypertension (401.9) (I10) 7. Smoking (305.1) (Z72.0) 8. Upper respiratory infection (465.9) (J06.9) Past Medical History 1. History of arthritis (V13.4) (Z87.39) 2. History of diabetes mellitus (V12.29) (Z86.39) 3. History of hypertension (V12.59) (Z86.79) 4. History of stroke (V12.54) (Z86.73) Surgical History 1. History of Section 2. [...] day smoker (305.1) (F17.200) ?? Smoking (305.1) (Z72.0) Current Meds 1. Ambien 10 MG Oral Tablet; Therapy: (Recorded:22Apr2015) to Recorded 2. Aspirin 325 MG Oral Tablet; Therapy: (Recorded:22Apr2015) to Recorded 3. Hydrocodone-Acetaminophen 10-325 MG Oral Tablet; TAKE 1 TABLET TID NEEDED FOR PAIN; Last Rx:[id number] Ordered 4. Losartan Potassium 100 MG Oral Tablet; TAKE 1 TABLET DAILY Requested for: 46Oaz0230; Last Rx:[id number] Ordered 5. MetFORMIN HCl - 500 MG Oral Tablet; TAKE 1 TABLET TWICE DAILY WITH MEALS Requested for: 16May2015; Last Rx:[id number] Ordered 6. Nicotine 21-14-7 MG/24HR Transdermal Kit; USE DIRECTED; Therapy: 17Jun2015 to (Last Rx:[id number]) Requested for: [id number] Ordered 7. Pravastatin Sodium 40 MG Oral Tablet; Take 1 tablet daily; Therapy: 16May2015 to (Last Rx:[id number]) Requested for: 90Uqb8938 Ordered 8. PriLOSEC 20 MG Oral Capsule Delayed Release; Therapy: (Recorded:22Apr2015) to Recorded 9. PROzac 40 MG Oral Capsule; Therapy: (Recorded:22Apr2015) to Recorded 10. Qvar 40 MCG/ACT Inhalation Aerosol Solution; Therapy: (Recorded:22Apr2015) to Recorded 11. Singulair 10 MG Oral Tablet; Therapy: (Recorded:22Apr2015) to Recorded 12. Sulfamethoxazole-TMP DS 800-160 MG Oral Tablet; TAKE 1 TABLET TWICE DAILY; Therapy: 17Jun2015 to (Evaluate:21Ngc5515) Requested for: 53Eaa0849; Last Rx:[id number] Ordered 13. Ventolin HFA 108 (90 Base) MCG/ACT Inhalation Aerosol Solution; INHALE 2 PUFFS EVERY 4 TO 6 HOURS NEEDED; Therapy: 74Usa4012 to (Last Rx:[id number]) Requested for: 83Gzb3509 Ordered 14. Wellbutrin XL 150 MG Oral Tablet Extended Release 24 Hour; Therapy: (Recorded:30Jul2015) to Recorded 15. Xanax 1 MG Oral Tablet; Therapy: (Recorded:22Apr2015) to Recorded Allergies 1. Halcion 2. Haldol 3. Penicillins 4. Risperidone and Related Vitals Recorded: 30Jul2015 01:08PM Heart Rate 88 Respiration 18 Systolic 135 Diastolic 84 Weight 210 lb 4 oz BMI Calculated 38.46 BSA Calculated 1.95 Assessment 1. Hypertension (401.9) (I10) 2. Hyperlipidemia (272.4) (E78.5) 3. COPD (chronic obstructive pulmonary disease) (496) (J44.9) 4. Diabetes mellitus, type 2 (250.00) (E11.9) 5. Needs flu shot (V04.81) (Z23) Plan Diabetes mellitus, type 2 1. *A1C In Office; Status:Active; Requested for:30Jul2015; Perform:In Office; Due:29Aug2015;Ordered; For:Diabetes mellitus, type 2; Ordered By:Dane Sullivan; 2. Compr Metabolic Prof ( CMP ); Status:Hold For - Manual Activation; Requested for:30Jul2015; Perform:[facility]; Due:29Aug2015;Ordered; For:Diabetes mellitus, type 2; Ordered By:Dane Sullivan; 3. Lipid Profile; Status:Hold For - Manual Activation; Requested for:30Jul2015; Perform:[facility]; Due:29Aug2015;Ordered; For:Diabetes mellitus, type 2; Ordered By:Dane Sullivan; 4. Range Manager Referral Outpatient 54F with DM2 dx in January, has not been to nutrition, send to lab analyst for DM education and tx, thanks Status: Need Information - Financial Authorization Requested for: 30Jul2015 Ordered; For: Diabetes mellitus, type 2; Ordered By: Dane Sullivan Performed: Due: 13Aug2015 Upper respiratory infection 5. Sulfamethoxazole-TMP DS 800-160 MG Oral Tablet Rx By: Dane Sullivan; Dispense: 5 Days ; #:10 Tablet; Refill: 0; For: Upper respiratory infection; ADAM = N; [facility]; Last Updated By: Jennifer Wayne; 07/30/2015 1:08:34 PM Discussion/Summary HTN Near control for DM2 SBP 135 Advised to cont current meds Advised on diet and exercise and quitting smoking DM2 already on maria fernanda, aspirin and statin Recent FBS have been normal Last A1C was May, do not have results cont metformin HLD on pravastatin Had labs in May Cont meds for now advised on diet and exercise COPD compliant with qvar doing well on this taking ventolin only once per week taking ventolin only 1 time per week smoker begged to quit smoking chronic pain Just started going to [facility] has only had 1 visit, and has f/u in Aug for possible VINNY Flu shot today f/u with me in Sep 2015 to repeat labs advised pt to get us lab results that were recently drawn in May Signatures Electronically signed by : Dane Sullivan D.O.; Jul 30 2015 1:26PM DRESSAGE JUDGE (Author) documented in this encounter Plan of Treatment Not on file documented as of this encounter Visit Diagnoses Not on filedocumented in this encounter Care Teams Verify Rep Relationship Specialty Start Date End Date Dane Sullivan DO PCP - General FAMILY PRACTICE 05/15/16 02/11/17 Deisi Andrews MD [address] [place] [address] [place] [address] PCP - General FAMILY PRACTICE 02/13/17 03/10/17 [...] - General 06/27/15 09/23/15 Deisi Andrews MD [address] [place] [address] [place] [address] PCP - General FAMILY PRACTICE 06/15/17 10/14/19 Asa Mcnamara MD [facility] [address] [place] [address] [place] Dairy Machine Operator Farmworker CARDIOVASCULAR DISEASE 05/15/16 documented as of this encounter
--- OUTSIDE RECORDS SUMMARY | 2024-11-12 04:50 | XMS_ITS | Encounter Summary ---
Author Organization [facility] Address [address] [facility]. [place], [place] [address] [place] [address] Care Team Providers Care Curriculum Development Manager Name Role Phone Dane Sullivan DO Primary Care Provider + [phone] Asa Mcnamara MD Unavailable [phone] Deisi Andrews MD Primary Care Provider [phone] Heber Adorno MD Primary Care Provider Unavailable Dane Sullivan DO Primary Care Provider + [phone] Dane Sullivan DO Primary Care Provider + [phone] Dane Sullivan DO Primary Care Provider + [phone] Dane Sullivan DO Primary Care Provider + [phone] Dane Sullivan DO Primary Care Provider + [phone] Heber Adorno MD Primary Care Provider Unavailable Deisi Andrews MD Primary Care Provider [phone] Encounter Details Date Type Department Care Team (Late st Contact Info) Description 11/13/[address] [facility] Heber Trinidad Md, MD Social History Tobacco Use Types Packs/Day Years Used Date Smoking Tobacco: Never Assessed Comments Unknown Sex and Gender Information Value Date Recorded Sex Assigned at Female 12/06/2019 3:36 PM INSURANCE ACCOUNT 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 Legal Sex Female 5:20 PM CDT Gender Identity Female 12/06/2019 3:36 PM INSURANCE ACCOUNT 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 Sexual Orientation Straight 12/06/2019 3: 36 PM INSURANCE ACCOUNT 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 documented as of this encounter Plan of Treatment Not on file documented as of this encounter Visit Diagnoses Not on filedocumented in this encounter Care Teams Curriculum Development Manager Relationship Specialty Start Date End Date Dane Sullivan DO PCP - General FAMILY PRACTICE 05/15/16 02/11/17 Deisi Andrews MD [address] [place] [address] PCP - General FAMILY PRACTICE 02/13/17 03/10/17 Heber Adorno MD PCP - General 03/11/17 06/14/17 Dane Sullivan DO PCP - General 05/04/16 05/14/16 Dane Sullivan DO PCP - General 04/17/16 05/03/16 Dane Sullivan DO PCP - General 03/26/16 04/16/16 Dane Sullivan DO PCP - General 11/12/15 03/25/16 Dane Sullivan DO PCP - General 09/24/15 11/11/15 Heber Aodrno MD PCP - General 06/27/15 09/23/15 Deisi Andrews MD [address] [place] [address] PCP - General FAMILY PRACTICE 06/15/17 10/14/19 Asa Mcnamara MD [address] [place] [address] [place] Gum Rolling Machine Operator CARDIOVASCULAR DISEASE 05/15/16 documented as of this encounter
--- OUTSIDE RECORDS SUMMARY | 2024-11-12 04:50 | XMS_ITS | Encounter Summary ---
Author Organization [facility] Address [address] [facility]. [place], [place] [address] [place] [address] Care Team Providers Care Cosmetics Supervisor Name Role Phone Dane Sullivan DO Primary Care Provider + [phone] Asa Mcnamara MD Unavailable +[phone] Deisi Andrews MD Primary Care Provider [phone] Heber Adorno MD Primary Care Provider Unavailable Dane Sullivan DO Primary Care Provider + [phone] Dane Sullivan DO Primary Care Provider + [phone] Dane uSllivan DO Primary Care Provider + [phone] Dane Sullivan DO Primary Care Provider + [phone] Dane Sullivan DO Primary Care Provider + [phone] Heber Adorno MD Primary Care Provider Unavailable Deisi Andrews MD Primary Care Provider [phone] Encounter Details Date Type Department Care Team (Late st Contact Info) Description 10/07/2005 Abstract [facility] [place] [address] Heber Adorno MD Social History Tobacco Use Types Packs/Day Years Used Date Smoking Tobacco: Never Assessed Comments Unknown Sex and Gender Information Value Date Recorded Sex Assigned at Female 12/06/2019 3:36 PM JEWELRY ESTIMATOR Legal Sex Female 5:20 PM CDT Gender Identity Female 12/06/2019 3:36 PM JEWELRY ESTIMATOR Sexual Orientation Straight 12/06/2019 3: 36 PM JEWELRY ESTIMATOR documented as of this encounter Plan of Treatment Not on file documented as of this encounter Visit Diagnoses Not on filedocumented in this encounter Care Teams Cosmetics Supervisor Relationship Specialty Start Date End Date Dane Sullivan DO PCP - General FAMILY PRACTICE 05/15/16 02/11/17 Deisi Andrews MD [address] [place] [address] PCP - General FAMILY PRACTICE 02/13/17 03/10/17 [...] - General 06/27/15 09/23/15 Deisi Andrews MD [address] [place] [address] [place] [address] PCP - General FAMILY PRACTICE 06/15/17 10/14/[address] [facility]. [facility] [address] [place] [address] [place] Carrot Harvester CARDIOVASCULAR DISEASE 05/15/16 documented as of this encounter
--- OUTSIDE RECORDS SUMMARY | 2024-11-12 04:50 | XMS_ITS | Encounter Summary ---
Author Organization [facility] Address [address] [facility]. [place], [place] [address] [place] [address] Care Team Providers Care Educational Consultant Name Role Phone Dane Sullivan DO Primary Care Provider + [phone] Asa Mcnamara MD Unavailable [phone] SullivanDane L DO Primary Care Provider + [phone] SullivanFarnazDnae L DO Primary Care Provider + [phone] SullivanFarnazDane L DO Primary Care Provider + [phone] Sullivan Dane L DO Primary Care Provider + [phone] Sullivan Dane L DO Primary Care Provider + [phone] Heber Adorno MD Primary Care Provider Unavailable Encounter Details Date Type Department Care Team (Late st Contact Info) Description 04/08/2015 Abstract [facility] [address] [place] [address] Md Generic MD Vivi Social History Tobacco Use Types Packs/Day Years Used Date Smoking Tobacco: Never Assessed Comments Unknown Sex and Gender Information Value Date Recorded Sex Assigned at Female 12/06/2019 3:36 PM BUSINESS LOAN PROCESSOR Legal Sex Female 5:20 PM CDT Gender Identity Female 12/06/2019 3:36 PM BUSINESS LOAN PROCESSOR Sexual Orientation Straight 12/06/2019 3: 36 PM BUSINESS LOAN PROCESSOR documented as of this encounter Plan of Treatment Not on file documented as of this encounter Visit Diagnoses Not on filedocumented in this encounter Care Teams Educational Consultant Relationship Specialty Start Date End Date [...] 06/27/15 09/23/15 Asa Mcnamara MD [facility]. [facility] [address] [place] [address] [place] Business Support Coordinator CARDIOVASCULAR DISEASE 05/15/16 documented as of this encounter
--- OUTSIDE RECORDS SUMMARY | 2024-11-12 04:50 | XMS_ITS | Encounter Summary ---
Author Organization [facility] Address [address] [facility]. [place], [place] [address] [place] [address] Care Team Providers Care Picker Name Role Phone Dane Sullivan DO Primary Care Provider + [phone] Asa Mcnamara MD Unavailable [phone] Deisi Andrews MD Primary Care Provider [phone] Md Generic Vivi HUYNH Primary Care Provider Unavailable Dane Sullivan DO Primary Care Provider + [phone] Dane Sullivan DO Primary Care Provider + [phone] Dane Sullivan DO Primary Care Provider + [phone] Dane Sullivan DO Primary Care Provider + [phone] Dane Sullivan DO Primary Care Provider + [phone] Md Generic Vivi HUYNH Primary Care Provider Unavailable Deisi Andrews MD Primary Care Provider [phone] Encounter Details Date Type Department Care Team (Latest Contact Info) Description 04/23/2015 Abstract [facility] Medical [facility] Social History Tobacco Use Types Packs/Day Years Used Date Smoking Tobacco: Never Assessed Comments Unknown Sex and Gender Information Value Date Recorded Sex Assigned at Female 12/06/2019 3:36 PM SHADOWGRAPH OPERATOR Legal Sex Female 5:20 PM CDT Gender Identity Female 12/06/2019 3:36 PM SHADOWGRAPH OPERATOR Sexual Orientation Straight 12/06/2019 3: 36 PM SHADOWGRAPH OPERATOR documented as of this encounter Progress Notes * Dane Sullivan, - 04/23/2015 12:00 AM CDT Message Recorded as Task Date: 04/23/2015 11:08 AM, Created By: Mckenna Lucas Task Name: Referral Assigned To: FM-Referral Team Regarding Patient: Rody Zaidi, Status: In Progress Comment: Mckenna Lucas - 23 Apr 2015 11:08 AM TASK CREATED Did you want to refer her to PM? If so, please enter an order in allscripts. Thanks. Dane Sullivan - 23 Apr 2015 1:29 PM TASK REPLIED TO: Previously Assigned To Dane Sullivan yes, orders in allscripts however, I dont have any PCM notes or MRI to review, I'm sure they'll want that for review Mckenna Lucas - 23 Apr 2015 2:57 PM TASK EDITED Faxed to Mckenna Mcfarlane - 23 Apr 2015 3:04 PM TASK REASSIGNED: Previously Assigned To Mckenna Lucas [place] - 29 Apr 2015 10:35 AM TASK EDITED I can?t find anyone to take patient?s insurance in [place] so faxed to: Faxed to [facility] [phone] # [phone] Mckenna Lucas - 29 Apr 2015 11:50 AM TASK IN PROGRESS Current Meds 1. Ambien 10 MG Oral Tablet; Therapy: (Recorded:22Apr2015) to Recorded 2. Aspirin 325 MG Oral Tablet; Therapy: (Recorded:22Apr2015) to Recorded 3. Hydrocodone-Acetaminophen 10-325 MG Oral Tablet; Therapy: (Recorded:22Apr2015) to Recorded 4. Losartan Potassium 100 MG Oral Tablet; Therapy: (Recorded:22Apr2015) to Recorded 5. MetFORMIN HCl - 500 MG Oral Tablet; Therapy: (Recorded:22Apr2015) to Recorded 6. PriLOSEC 20 MG Oral Capsule Delayed Release; Therapy: (Recorded:22Apr2015) to Recorded 7. PROzac 40 MG Oral Capsule; Therapy: (Recorded:22Apr2015) to Recorded 8. Qvar 40 MCG/ACT Inhalation Aerosol Solution; Therapy: (Recorded:22Apr2015) to Recorded 9. Singulair 10 MG Oral Tablet; Therapy: (Recorded:22Apr2015) to Recorded 10. Ventolin 90 MCG/ACT AERS; Therapy: (Recorded:22Apr2015) to Recorded 11. Xanax 1 MG Oral Tablet; Therapy: (Recorded:22Apr2015) to Recorded Plan 1. Pain Management Referral Outpatient 54yo WF with chronic pain on chronic pain meds for several years, previously under care of PM, send to pain management for eval and tx, thanks Status: Hold For - Scheduling Requested for: 23Apr2015 Signatures Electronically signed by : Dane Sullivan D.O.; Apr 29 2015 3:24PM SHADOWGRAPH OPERATOR (Author) documented in this encounter Plan of Treatment Not on file documented as of this encounter Visit Diagnoses Not on filedocumented in this encounter Care Teams Picker Relationship Specialty Start Date End Date Dane Sullivan DO PCP - General FAMILY PRACTICE 05/15/16 02/11/17 Deisi Andrews MD [address] [place] [address] PCP - General FAMILY PRACTICE 02/13/17 03/10/17 [...] - General 06/27/15 09/23/15 Deisi Andrews MD [address] [place] [address] [place] [address] PCP - General FAMILY PRACTICE 06/15/17 10/14/19 Asa Mcnamara MD [facility]. [facility] [address] [place] [address] [place] Scallop CARDIOVASCULAR DISEASE 05/15/16 documented as of this encounter
--- OUTSIDE RECORDS SUMMARY | 2024-11-12 04:50 | XMS_ITS | Encounter Summary ---
Author Organization [facility] Address [address] [place] [address] [place] [address] Care Team Providers Care Depalletizer Operator Name Role Phone Dane Sullivan DO Primary Care Provider + [phone] Asa Mcnamara MD Unavailable [phone] Deisi Andrews MD Primary Care Provider [phone] Heber Adorno MD Primary Care Provider Unavailable Dane Sullivan DO Primary Care Provider + [phone] Dane Sullivan DO Primary Care Provider + [phone] Dane Sullivan DO Primary Care Provider + [phone] Dane Sullivan DO Primary Care Provider + [phone] Dane Sullivan DO Primary Care Provider + [phone] Deisi Andrews MD Primary Care Provider [phone] Encounter Details Date Type Department Care Team (Late st Contact Info) Description 09/24/2015 Abstract [facility] Family Medicine - [address] [phone] Dane Sullivan DO [address] [phone] Social History Tobacco Use Types Packs/Day Years Used Date Smoking Tobacco: Never Assessed Comments Unknown Sex and Gender Information Value Date Recorded Sex Assigned at Female 12/06/2019 3:36 PM FINE CRAFT ARTIST Legal Sex Female 5:20 PM CDT Gender Identity Female 12/06/2019 3:36 PM FINE CRAFT ARTIST Sexual Orientation Straight 12/06/2019 3: 36 PM FINE CRAFT ARTIST documented as of this encounter Last Filed Vital Signs Vital Sign Reading Time Taken Comments Blood Pressure 139/87 09/24/2015 1:13 PM FINE CRAFT ARTIST Pulse 93 09/24/2015 1:13 PM FINE CRAFT ARTIST Temperature - - Respiratory Rate - - Oxygen Saturation - - Inhaled Oxygen Concentration - - Weight 96.2 kg (212 lb) 09/24/2015 1:13 PM FINE CRAFT ARTIST Height 157.5 cm (5' 2 ) 09/24/2015 1:13 PM FINE CRAFT ARTIST Body Mass Index 38.78 09/24/2015 1:13 PM FINE CRAFT ARTIST documented in this encounter Progress Notes * Dane Sullivan, DO - 09/24/2015 1:15 PM CST History of Present Illness HPI Free Text: Pt is here for f/u numerous medical conditions DM2 back to drinking soda now no recent A1c FBS at home 140s, but only checks every 2 weeks or so on metfomin bid has been eating a lot of canned foods Pt has COPD/Asthma quit smoking 3 days ago This past month Ventolin only as needed, about once a week also on singulair and she tolerates these meds denies any CP, SOB or wheezing however, over the past 2 weeks, she has increased nasal congestion, coughing taking dayquil, izzy seltzer but not getting any better has HLD on pravastatin 40mg for this no recently blood draws on her is tolerating her meds HTN on losartan states BP typically is controlled last checked at PM and was told it was normal Denies any CP, SOB, Nv Review of [...] Diabetes mellitus, type 2 (250.00) (E11.9) 5. History of CVA (cerebrovascular accident) (V12.54) (Z86.73) 6. Hyperlipidemia (272.4) (E78.5) 7. Hypertension (401.9) (I10) 8. Needs flu shot (V04.81) (Z23) 9. Smoking (305.1) (F17.200) 10. URTI (acute upper respiratory infection) (465.9) (J06.9) Past Medical History 1. History [...] Oral Tablet; Therapy: (Recorded:22Apr2015) to Recorded 3. Diclofenac Sodium 75 MG Oral Tablet Delayed Release; Therapy: 02May2015 to Recorded 4. Hydrocodone-Acetaminophen 10-325 MG Oral Tablet; TAKE 1 TABLET TID NEEDED FOR PAIN; Last Rx:[id number] Ordered 5. Ibuprofen 600 MG Oral Tablet; Therapy: 73Uye1202 to Recorded 6. Levofloxacin 500 MG Oral Tablet; Therapy: 96Sgg1798 to Recorded 7. Losartan Potassium 100 MG Oral Tablet; TAKE 1 TABLET DAILY Requested for: 12Aug2015; Last Rx:[id number] Ordered 8. MetFORMIN HCl - 500 MG Oral Tablet; TAKE 1 TABLET TWICE DAILY WITH MEALS Requested for: 99Hnn5088; Last Rx:[id number] Ordered 9. Montelukast Sodium 10 MG Oral Tablet; TAKE 1 TABLET DAILY Requested for: 12Aug2015; Last Rx:[id number] Ordered 10. Eroqjnxv-Qoylbarar-YI 3.5-41580-2 Otic Suspension; Therapy: 21May2015 to Recorded 11. Nicotine 21-14-7 MG/24HR Transdermal Kit; USE DIRECTED; Therapy: 42Yxl4428 to (Last Rx:[id number]) Requested for: 87Nce5073 Ordered 12. Pravastatin Sodium 40 MG Oral Tablet; Take 1 tablet daily; Therapy: 38Eam7275 to (Last Rx:[id number]) Requested for: 34Dnc3556 Ordered 13. PriLOSEC 20 MG Oral Capsule Delayed Release; Therapy: (Recorded:22Apr2015) to Recorded 14. PROzac 40 MG Oral Capsule; Therapy: (Recorded:22Apr2015) to Recorded 15. Qvar 40 MCG/ACT Inhalation Aerosol Solution; INHALE 1 PUFF TWICE DAILY Requested for: 52Yun0415; Last Rx:[id number] Ordered 16. Ventolin HFA 108 (90 Base) MCG/ACT Inhalation Aerosol Solution; INHALE 2 PUFFS EVERY 4 TO 6 HOURS NEEDED; Therapy: 75Qmw7996 to (Last Rx:[id number]) Requested for: 77Lcz8863 Ordered 17. Wellbutrin XL 150 MG Oral Tablet Extended Release 24 Hour; Therapy: (Recorded:30Jul2015) to Recorded 18. Xanax 1 MG Oral Tablet; Therapy: (Recorded:22Apr2015) to Recorded Allergies 1. Halcion 2. Haldol 3. Penicillins 4. Risperidone and Related Immunizations Influenza --- Series1: 30Jul2015 Vitals Recorded: 24Sep2015 01:13PM Heart Rate 93 Blood Pressure 87 mm Hg 139 mm Hg Height 5 ft 2 in Weight 212 lb BMI Calculated 38.78 kg/m2 BSA Calculated 1.96 m2 Assessment 1. Diabetes mellitus, type 2 (250.00) (E11.9) 2. COPD (chronic obstructive pulmonary disease) (496) (J44.9) 3. Hypertension (401.9) (I10) 4. Hyperlipidemia (272.4) (E78.5) 5. Smoking (305.1) (F17.200) 6. URTI (acute upper respiratory infection) (465.9) (J06.9) Plan Hyperlipidemia 1. *A1C In Office; Status:Active; Requested for:24Sep2015; Perform:In Office; Due:13Mmb1151;Ordered; For:Hyperlipidemia; Ordered By:Dane Sullivan; 2. Compr Metabolic Prof ( CMP ); Status:Hold For - Manual Activation; Requested for:24Sep2015; Perform:[facility]; Due:90Gfa5489;Ordered; For:Hyperlipidemia; Ordered By:Dane Sullivan; 3. Lipid Profile; Status:Hold For - Manual Activation; Requested for:24Sep2015; Perform:[facility]; Due:18Fto9933;Ordered; For:Hyperlipidemia; Ordered By:Dane Sullivan; 4. TSH W Reflex Free T4; Status:Hold For - Manual Activation; Requested for:24Sep2015; Perform:[facility]; Due:91Huu0910;Ordered; For:Hyperlipidemia; Ordered By:Dane Sullivan; URTI (acute upper respiratory infection) 5. Benzonatate 200 MG Oral Capsule; TAKE 1 CAPSULE 3 TIMES DAILY NEEDED Rx By: Dane Sullivan; Dispense: 10 Days ; #:30 Capsule; Refill: 0; For: URTI (acute upper respiratory infection); ADAM = N; Sent To: [facility] 6. Clindamycin HCl - 300 MG Oral Capsule; TAKE 1 CAPSULE EVERY 6 HOURS DAILY Rx By: Dane Sullivan; Dispense: 7 Days ; #:28 Capsule; Refill: 0; For: URTI (acute upper respiratory infection); ADAM = N; [facility] 7. *Urine Dip Siemens Machine Read Strip In Office; Status:Hold For - Specimen/Data Collection; Requested for:24Sep2015; Perform:In Office; Due:16Qjc5791;Ordered; For:URTI (acute upper respiratory infection); Ordered By:Dane Sullivan; 8. Urine Microalb / Creat Ratio; Status:Hold For - Manual Activation; Requested for:24Sep2015; Perform:[facility]; Due:24Czi4199;Ordered; For:URTI (acute upper respiratory infection); Ordered By:Dane Sullivan; Unlinked 9. Levofloxacin 500 MG Oral Tablet Rx By: GANGA BELLA; Dispense: 10 Days ; #:10 TABS; Refill: 0; ADAM = N; Record; Last Updated By: Dane Sullivan; 09/24/2015 1:41:15 PM Discussion/Summary DM2 checking urine and labs cont meds advised on TLC advised on DM diet COPD congratulated on quitting smoking cont meds for now HTN near control advised on diet and exercise advoid salts cont losartan HLD due for lab testing cont meds URI pt does not want zpak or amox will rx clinda f/u 3 mos Signatures Electronically signed by : Dane Sullivan D.O.; Sep 24 2015 1:43PM FINE CRAFT ARTIST (Author) * Dane Sullivan DO - 09/24/2015 1:15 PM CST Message A few things here Although her A1C is controlled, her urine shows she has diabetic nephropathy, which is a form of kidney damage from diabetes. She is already on losartan which can help with this In addition to that, we need to control her HTN more aggressively I have placed an order for her to start taking amlodipine, this can help bring her BP down She also continues to have elevated cholesterol She is already on high dose of pravastatin I will start her on zetia, combo of statin and zetia can help bring numbers down rest of labs unremarkable f/u with me in 6 weeks, 30 min (please ensure 30 min appts for her from here on out for any f/u), we can recheck chol, and UA at that time, and check her BP thanks orders in allscripts Verified Results *UA MICRO In Office 24Sep2015 02:20PM Dane Sullivan Test Name Result Flag Reference Color Yellow Clarity Clear Glucose Negative Bilirubin Negative Ketones Negative Specific [place] 1.015 Blood Negative pH 6.0 Protein Trace Urobilinogen 0.2 E.U./dL Nitrite Negative Leukocytes Negative Epithelial Cells Rare Rare, Few WBC None RBC None Casts None Crystals None Bacteria Trace *A1C In Office 24Sep2015 02:19PM Dane Sullivan Test Name Result Flag Reference A1C 6.0 4.2% - 6.5% Compr Metabolic Prof ( CMP ) 24Sep2015 01:45PM Dane Sullivan Test Name Result Flag Reference Glucose 121 mg/dL H 70-99 Blood Urea Nitrogen (BUN) 11 mg/dL 8-23 Creatinine 0.71 mg/dL 0.60-1.10 Sodium (Na) 142 mmol/L 136-145 Potassium (K) 3.9 mmol/L 3.5-5.1 Chloride (Cl) 97 mmol/L L 98-107 Carbon Dioxide (CO2) 27 mmol/L 22-29 Total Bilirubin 0.2 mg/dL 0.2-1.2 Calcium 9.7 mg/dL 8.6-10.2 Alkaline Phosphatase (ALKP) 112 IU/L H 35-104 AST/GOT 15 IU/L 0-32 Total Protein 7.7 g/dL 6.4-8.3 Albumin 4.3 g/dL 3.5-5.2 ALT/GPT 14 IU/L 0-33 Globulin, Calc 3.4 g/dL 2.3-3.6 A:G Ratio 1.3 1.0-2.0 Anion Gap 22 H 8-20 Glomerular Filt Rate Calc >60 mL/min/1.73m'2 >60 Glomerular Filt Rate (AA) Calc >60 >60 NOTE: eGFR is not calculated for patients <18 years of age. This is an estimated GFR (CKD EPI) and should not be used for calculating drug doses. mL/min/1.73m'2 Lipid Profile 24Sep2015 01:45PM SullivanDane gonzalez Test Name Result Flag Reference Cholesterol 224 mg/dL H <200 NOTE: Acetaminophen, N Acetyl p benzoquinone imine (NAPQI), N acetylcysteine (NAC), Metamizole, 4 Aminoantipyrine (4 AAP) and 4 Methylamino antipyrine (4 MAP) at high concentrations can cause falsely low results on Lactate, Uric Acid, Cholesterol, Triglyceride, HDL, and Direct LDL. Triglycerides 520 mg/dL H <150 HDL Cholesterol 38 mg/dL L >59 LDL Cholesterol, Calculated <100 NOT CALCULATED TRIGLYCERIDE >400 INVALIDATES FRACTIONATION. mg/dL Non HDL, Calc 186 mg/dL H <130 NOTE: WHEN THE TRIGLYCERIDES ARE >200 mg/dL, NON HDL C IS A SECONDARY TARGET OF THERAPY, WITH A GOAL 30 mg/dL HIGHER THAN THE IDENTIFIED LDL C GOAL. Cholesterol/HDL Ratio 5.9 H 0.0-4.5 VLDL Cholesterol 5-55 NOT CALCULATED TRIGLYCERIDE >400 INVALIDATES FRACTIONATION. mg/dL Lipid Profile Comment 1 (Report) [facility] REPORT RECOMMENDATIONS: ADULT CHILD LOW RISK: CHOLESTEROL <200 <170 TRIGLYCERIDE <150 --- HDL >=60 --- LDL <100 <110 BORDERLINE: CHOLESTEROL 200-239 170-199 TRIGLYCERIDE 150-199 --- HDL 40-59 --- LDL 100-159 110-129 HIGH RISK: CHOLESTEROL >=240 >=200 TRIGLYCERIDE >=200 --- HDL <40 --- LDL >=160 >=130 TSH W Reflex Free T4 24Sep2015 01:45PM Nate Dane Test Name Result Flag Reference TSH w Reflex Free T4 0.30 mIU/mL 0.27-4.20 FREE T4 NOT INDICATED Urine Microalb / Creat Ratio 24Sep2015 01:45PM Nate Dane Test Name Result Flag Reference Urine Microalbumin 7.9 mg/dL H <2.0 Urine Creatinine 125 mg/dL 28-217 Urine Microalbumin/Creat Ratio 63.2 MG/G H <30 Plan Diabetes mellitus, type 2 ?? *UA MICRO In Office; Status:Complete; Done: 24Sep2015 02:20PM ?? ALT ( SGPT ); Status:Hold For - Manual Activation; Requested for:25Sep2015; ?? AST ( SGOT ); Status:Hold For - Manual Activation; Requested for:25Sep2015; ?? Lipid Profile; Status:Hold For - Manual Activation; Requested for:25Sep2015; ?? Urine Microalb / Creat Ratio; Status:Hold For - Manual Activation; Requested for:25Sep2015; Hyperlipidemia ?? Zetia 10 MG Oral Tablet; TAKE 1 TABLET DAILY ?? *A1C In Office; Status:Complete; Done: 24Sep2015 02:19PM ?? Compr Metabolic Prof ( CMP ); Status:Complete; Done: 24Sep2015 01:45PM ?? Lipid Profile; Status:Complete; Done: 24Sep2015 01:45PM ?? TSH W Reflex Free T4; Status:Complete; Done: 24Sep2015 01:45PM Hypertension ?? AmLODIPine Besylate 5 MG Oral Tablet; TAKE 1 TABLET DAILY DIRECTED URTI (acute upper respiratory infection) ?? Benzonatate 200 MG Oral Capsule; TAKE 1 CAPSULE 3 TIMES DAILY NEEDED ?? Clindamycin HCl - 300 MG Oral Capsule; TAKE 1 CAPSULE EVERY 6 HOURS DAILY ?? Urine Microalb / Creat Ratio; Status:Complete; Done: 24Sep2015 01:45PM Unlinked ?? Levofloxacin 500 MG Oral Tablet documented in this encounter Plan of Treatment Not on file documented as of this encounter Procedures Procedure Name Priority Date/Time Associated Diagnosis Comments URINALYSIS Routine 09/24/2015 2:20 PM FINE CRAFT ARTIST HEMOGLOBIN, GLYCOSYLATED Routine 09/24/2015 2:19 PM FINE CRAFT ARTIST MICROALBUMIN CREATININE RATIO Routine 09/24/2015 1:45 PM FINE CRAFT ARTIST TSH W/REFLEX Routine 09/24/2015 1:45 PM FINE CRAFT ARTIST COMPREHENSIVE METABOLIC PANEL Routine 09/24/2015 1:45 PM FINE CRAFT ARTIST LIPID PANEL Routine 09/24/2015 1:45 PM FINE CRAFT ARTIST documented in this encounter Results * URINALYSIS (09/24/2015 2:20 PM FINE CRAFT ARTIST) Pathologist [facility] EPI/HPF Rare Rare, Few [facility] T O EPIC CONVERSION RBC None [facility] T O EPIC CONVERSION WBC None [facility] T O EPIC CONVERSION COLOR (U) Yellow [facility] T O EPIC CONVERSION TRANSPARENCY Clear [facility] P TO EPIC CONVERSION GLUCOSE Negative [facility] T O EPIC CONVERSION BILIRUBIN (U) Negative [facility] UP TO EPIC CONVERSION KETONE (U) Negative [facility] TO EPIC CONVERSION SPECIFIC GRAVITY (U) 1.015 [facility] TO EPIC CONVERSION BLOOD (U) Negative [facility] T O EPIC CONVERSION PH ARTERIAL 6.0 [facility] TO EPIC CONVERSION PROTEIN (ELP) (U) Trace [facility] TO EPIC CONVERSION UROBILINOGEN 0.2 E.U./dL [facility] OUP TO EPIC CONVERSION NITRITES Negative [facility] T O EPIC CONVERSION LEUKOCYTES (U) Negative [facility] OUP TO EPIC CONVERSION OTHER CASTS (U) None [facility] ROUP TO EPIC CONVERSION CRYSTALS (U) None [facility] P TO EPIC CONVERSION BACTERIA (U) Trace [facility] P TO EPIC CONVERSION 09/24/2015 2:20 PM FINE CRAFT ARTIST 09/24/2015 2:20 PM FINE CRAFT ARTIST Narrative [facility] TO EPIC CONVERSION - 09/24/2015 2:20 PM FINE CRAFT ARTIST Result Communication: Call patient with results us Dane Sullivan DO URINE ORDERABLES Final Resul t [facility] TO EPIC CONVERSION * HEMOGLOBIN, GLYCOSYLATED (09/24/2015 2:19 PM FINE CRAFT ARTIST) Pathologist [facility] HGB A1C 6.0 4.2% - 6.5% [facility] TO EPIC CONVERSION 09/24/2015 2:19 PM FINE CRAFT ARTIST 09/24/2015 2:19 PM FINE CRAFT ARTIST Narrative [facility] TO EPIC CONVERSION - 09/24/2015 2:19 PM FINE CRAFT ARTIST Result Communication: Call patient with results us Dane Sullivan DO LABORATORY Final Result [facility] TO EPIC CONVERSION * TSH W/REFLEX (SNS) (09/24/2015 1:45 PM FINE CRAFT ARTIST) TSH 0.30 0.27 - 4.20 mIU/mL [facility] TO EPIC CONVERSION Comment:Result Comment: FREE T4 NOT INDICATED 09/24/2015 1:45 PM FINE CRAFT ARTIST 09/24/2015 1:45 PM FINE CRAFT ARTIST Narrative [facility] TO EPIC CONVERSION - 09/24/2015 9:47 PM FINE CRAFT ARTIST Result Communication: Call patient with results Dane Sullivan DO LABORATORY Final Result [facility] TO EPIC CONVERSION * (ABNORMAL) LIPID PANEL (09/24/2015 1:45 PM FINE CRAFT ARTIST) CHOLESTEROL 224(H) <200 mg/dL [facility] TO EPIC CONVERSION Comment: Result Comment: NOTE: Acetaminophen, N Acetyl p benzoquinone imine (NAPQI), N acetylcysteine (NAC), Metamizole, 4 Aminoantipyrine (4 AAP) and 4 Methylamino antipyrine (4 MAP) at high concentrations can cause falsely low results on Lactate, Uric Acid, Cholesterol, Triglyceride, HDL, and Direct LDL. TRIGLYCERIDES 520(H) <150 mg/dL [facility] TO EPIC CONVERSION HDL 38(L) >59 mg/dL [facility] TO EPIC CONVERSION LDL (CALCULATED) ??NOT CALCULATED TRIGLYCERIDE >400 INVALIDATES FRACTIONATION. <100 mg/dL [facility] TO EPIC CONVERSION NON HDL CHOLESTEROL 186(H) <130 mg/dL [facility] TO EPIC CONVERSION Comment: Result Comment: NOTE: WHEN THE TRIGLYCERIDES ARE >200 mg/dL, NON HDL C IS A SECONDARY TARGET OF THERAPY, WITH A GOAL 30 mg/dL HIGHER THAN THE IDENTIFIED LDL C GOAL. CHOL/HDL RATIO 5.9(H) 0.0 - 4.5 [facility] TO EPIC CONVERSION VLDL CHOLESTEROL (LMP) ??NOT CALCULATED TRIGLYCERIDE >400 INVALIDATES FRACTIONATION. 5 - 55 mg/dL [facility] TO EPIC CONVERSION LIPID INTERPRETATION [facility] REPORT RECOMMENDATION S: ?ADULT ?CHILD ??LOW RISK: ?CHOLESTEROL ? <200 ? <170 ?TRIGLYCERIDE ?<150 ?--- ?HDL ? >=60 ?--- ?LDL ? <100 ? <110 ?BORDERLINE: ?CHOLESTEROL ? 200-239 ?? 170-199 ?TRIGLYCERIDE ?150-199 ? --- ?HDL ?40-59 ?--- ?LDL ? 100-159 ?? 110-129 ?HIGH RISK: ?CHOLESTEROL ? >=240 ?>=200 ?TRIGLYCERIDE ?>=200 ? --- ?HDL ?<40 ?--- ?LDL ? >=160 ?>=130 [facility] TO EPIC CONVERSION 09/24/2015 1:45 PM FINE CRAFT ARTIST 09/24/2015 1:45 PM FINE CRAFT ARTIST Narrative [facility] TO EPIC CONVERSION - 09/24/2015 9:47 PM FINE CRAFT ARTIST Result Communication: Call patient with results us Dane Sullivan DO LABORATORY Final Result [facility] TO EPIC CONVERSION * (ABNORMAL) COMPREHENSIVE METABOLIC PANEL (09/24/2015 1:45 PM FINE CRAFT ARTIST) SODIUM S/P/B 142 136 - 145 mmol/L [facility] TO EPIC CONVERSION POTASSIUM S/P/B 3.9 3.5 - 5.1 mmol/L [facility] TO EPIC CONVERSION CHLORIDE S/P/B 97(L) 98 - 107 mmol/L [facility] TO EPIC CONVERSION CO2 27 22 - 29 mmol/L [facility] TO EPIC CONVERSION ANION GAP 22(H) 8 - 20 [facility] T O EPIC CONVERSION BUN 11 8 - 23 mg/dL [facility] TO EPIC CONVERSION CREATININE S/P/B 0.71 0.60 - 1.10 mg/dL [facility] TO EPIC CONVERSION GFR ESTIMATE >60 >60 mL/min/1 .73m'2 [facility] TO EPIC CONVERSION EGFR AFR. AMER. >60 NOTE: eGFR is not calculated for patients <18 years of age. This is an estimated GFR (CKD EPI) and should not be used for calculating drug doses. >60 mL/min/1 .73m'2 [facility] TO EPIC CONVERSION GLUCOSE 121(H) 70 - 99 mg/dL [facility] TO EPIC CONVERSION CALCIUM S/P/B 9.7 8.6 - 10.2 mg/dL [facility] TO EPIC CONVERSION BILIRUBIN TOTAL S/P/B 0.2 0.2 - 1.2 mg/dL [facility] TO EPIC CONVERSION AST 15 0 - 32 IU/L [facility] TO EPIC CONVERSION ALT 14 0 - 33 IU/L [facility] TO EPIC CONVERSION ALKALINE PHOSPHATASE S/P/B 112(H) 35 - 104 IU/L [facility] TO EPIC CONVERSION TOTAL PROTEIN S/P/B 7.7 6.4 - 8.3 g/dL [facility] TO EPIC CONVERSION ALBUMIN S/P/B 4.3 3.5 - 5.2 g/dL [facility] TO EPIC CONVERSION GLOBULIN 3.4 2.3 - 3.6 g/dL [facility] TO EPIC CONVERSION A/G RATIO 1.3 1.0 - 2.0 [facility] TO EPIC CONVERSION 09/24/2015 1:45 PM FINE CRAFT ARTIST 09/24/2015 1:45 PM FINE CRAFT ARTIST Narrative [facility] TO EPIC CONVERSION - 09/24/2015 9:47 PM FINE CRAFT ARTIST Result Communication: Call patient with results us Dane Sullivan DO LABORATORY Final Result [facility] TO EPIC CONVERSION * (ABNORMAL) MICROALBUMIN CREATININE RATIO (09/24/2015 1:45 PM FINE CRAFT ARTIST) CREATININE (U) 125 28 - 217 mg/dL [facility] TO EPIC CONVERSION MICROALBUMIN (U) 7.9(H) <2.0 mg/dL [facility] TO EPIC CONVERSION ALBUMIN/CREAT RATIO 63.2(H) <30 MG/G [facility] TO EPIC CONVERSION 09/24/2015 1:45 PM FINE CRAFT ARTIST 09/24/2015 1:45 PM FINE CRAFT ARTIST Narrative [facility] TO EPIC CONVERSION - 09/24/2015 9:34 PM FINE CRAFT ARTIST Result Communication: Call patient with results us Dane Sullivan DO LABORATORY Final Result [facility] TO EPIC CONVERSION documented in this encounter Visit Diagnoses Not on filedocumented in this encounter Care Teams Depalletizer Operator Relationship Specialty Start Date End Date Dane Sullivan DO PCP - General FAMILY PRACTICE 05/15/16 02/11/17 Deisi Andrews MD [address] [place] [address] PCP - General FAMILY PRACTICE 02/13/17 03/10/17 , Generic MD Vivi PCP - General 03/11/17 06/14/17 Dane Sullivan DO PCP - General 05/04/16 05/14/16 Dane Sullivan DO PCP - General 04/17/16 05/03/16 Dane Sullivan DO PCP - General 03/26/16 04/16/16 Dane Sullivan DO PCP - General 11/12/15 03/25/16 Dane Sullivan DO PCP - General 09/24/15 11/11/15 Deisi Andrews MD [address] [place] [address] [place] [address] PCP - General FAMILY PRACTICE 06/15/17 10/14/19 Asa Mcnamara MD [facility]. [address] [address] [place] [address] Stephen Manager In Training CARDIOVASCULAR DISEASE 05/15/16 documented as of this encounter
--- OUTSIDE RECORDS SUMMARY | 2024-11-12 04:50 | XMS_ITS | Encounter Summary ---
Author Organization [facility] Address [address] [place], [place] [address] [place] [address] Care Team Providers Care Pipeline Integrity Engineer Name Role Phone Dane Sullivan DO Primary Care Provider + [phone] Asa Mcnamara MD Unavailable [phone] Deisi Andrews MD Primary Care Provider [phone] Md Generic Vivi HUYNH Primary Care Provider Unavailable Dane Sullivan DO Primary Care Provider + [phone] Dane Sullivan DO Primary Care Provider + [phone] Dane Sullivan DO Primary Care Provider + [phone] Dane Sullivan DO Primary Care Provider + [phone] Dane Sullivan DO Primary Care Provider + [phone] Md Generic Vivi HUYNH Primary Care Provider Unavailable Deisi Andrews MD Primary Care Provider [phone] Encounter Details Date Type Department Care Team (Latest Contact Info) Description 07/31/2015 Abstract [facility] Social History Tobacco Use Types Packs/Day Years Used Date Smoking Tobacco: Never Assessed Comments Unknown Sex and Gender Information Value Date Recorded Sex Assigned at Female 12/06/2019 3:36 PM MASTER HEARTH TECHNICIAN Legal Sex Female 5:20 PM CDT Gender Identity Female 12/06/2019 3:36 PM MASTER HEARTH TECHNICIAN Sexual Orientation Straight 12/06/2019 3: 36 PM MASTER HEARTH TECHNICIAN documented as of this encounter Plan of Treatment Not on file documented as of this encounter Visit Diagnoses Not on filedocumented in this encounter Care Teams Pipeline Integrity Engineer Relationship Specialty Start Date End Date Dane Sullivan DO PCP - General FAMILY PRACTICE 05/15/16 02/11/17 Deisi Andrews MD [address] [place] [address] PCP - General FAMILY PRACTICE 02/13/17 03/10/17 Heber Huynh MD PCP - General 03/11/17 06/14/17 Dane Sullivan DO PCP - General 05/04/16 05/14/16 Dane Sullivan DO PCP - General 04/17/16 05/03/16 Dane Sullivan DO PCP - General 03/26/16 04/16/16 Dane Sullivan DO PCP - General 11/12/15 03/25/16 Dane Sullivan DO PCP - General 09/24/15 11/11/15 Heber Huynh MD PCP - General 06/27/15 09/23/15 Deiis Andrews MD [address] [place] [address] PCP - General FAMILY PRACTICE 06/15/17 10/14/19 Asa Mcnamara MD [facility]. [facility] [address] [place] [address] [place] [facility] CARDIOVASCULAR DISEASE 05/15/16 documented as of this encounter
--- OUTSIDE RECORDS SUMMARY | 2024-11-12 04:50 | XMS_ITS | Encounter Summary ---
Author Organization [facility] Address [address] [facility]. [place], [place] [address] [place] [address] Care Team Providers Care Avionics Systems Integration Specialist Name Role Phone Dane Sullivan DO Primary Care Provider + [phone] Asa Mcnamara MD Unavailable +[phone] SullivanDane L DO Primary Care Provider + [phone] SullivanFarnazDane L DO Primary Care Provider + [phone] SullivanFarnazDane L DO Primary Care Provider + [phone] Sullivan Dane L DO Primary Care Provider + [phone] Usllivan Dane L DO Primary Care Provider + [phone] Heber Adorno MD Primary Care Provider Unavailable Encounter Details Date Type Department Care Team (Late st Contact Info) Description 04/08/2015 [facility] [address] [place] [address] Md Generic MD Vivi Social History Tobacco Use Types Packs/Day Years Used Date Smoking Tobacco: Never Assessed Comments Unknown Sex and Gender Information Value Date Recorded Sex Assigned at Female 12/06/2019 3:36 PM MEDICAL PHYSIOLOGIST Legal Sex Female 5:20 PM CDT Gender Identity Female 12/06/2019 3:36 PM MEDICAL PHYSIOLOGIST Sexual Orientation Straight 12/06/2019 3: 36 PM MEDICAL PHYSIOLOGIST documented as of this encounter Plan of Treatment Not on file documented as of this encounter Visit Diagnoses Not on filedocumented in this encounter Care Teams Avionics Systems Integration Specialist Relationship Specialty Start Date End Date [...] - General 06/27/15 09/23/15 Asa Mcnamara MD [facility]. [facility] [address] [place] [address] [place] Radio Mechanic Helper CARDIOVASCULAR DISEASE 05/15/16 documented as of this encounter
--- OUTSIDE RECORDS SUMMARY | 2024-11-12 04:50 | XMS_ITS | Encounter Summary ---
Author Organization [facility] Address [address] [facility]. [place], [place] [address] [place] [address] Care Team Providers Care Intelligence Manager Name Role Phone Dane Sullivan DO Primary Care Provider + [phone] Asa Mcnamara MD Unavailable +[phone] Deisi Andrews MD Primary Care Provider +[phone] Heber Adorno MD Primary Care Provider Unavailable Dane Sullivan DO Primary Care Provider + [phone] Dane Sullivan DO Primary Care Provider + [phone] Dane Sullivan DO Primary Care Provider + [phone] Dane Sullivan DO Primary Care Provider + [phone] Dane Sullivan DO Primary Care Provider + [phone] Heber Adorno MD Primary Care Provider Unavailable Deisi Andrews MD Primary Care Provider +[phone] Neva Holden MD Primary Care Provider +[phone] Deisi Andrews MD Primary Care Provider +- [phone] Neva Holden MD Primary Care Provider +[phone] Encounter Details Date Type Department Care Team (Late st Contact Info) Description 10/03/2006 Abstract [facility] Medical/Surgical [address] [facility] [place], [place] [id number] Caesar Duran MD [address] [place] [address] [place] [address] Social History Tobacco Use Types Packs/Day Years Used Date Smoking Tobacco: Never Assessed Comments Unknown Sex and Gender Information Value Date Recorded Sex Assigned at Female 12/06/2019 3:36 PM LOAN WORKOUT OFFICER Legal Sex Female 5:20 PM CDT Gender Identity Female 12/06/2019 3:36 PM LOAN WORKOUT OFFICER Sexual Orientation Straight 12/06/2019 3: 36 PM LOAN WORKOUT OFFICER COVID-19 Exposure Response Date Recorded In the last month, have you been in contact with someone who was confirmed or suspected to have Coronavirus / COVID-19? Unable to assess 06/14/2020 2:13 PM CDT documented as of this encounter Plan of Treatment Not on file documented as of this encounter Visit Diagnoses Not on filedocumented in this encounter Care Teams Intelligence Manager Relationship Specialty Start Date End Date Dane Sullivan DO PCP - General FAMILY PRACTICE 05/15/16 02/11/17 Deisi Andrews MD [address] [place] [address] [place] [address] PCP - General FAMILY PRACTICE 02/13/17 03/10/17 [...] General 06/27/15 09/23/15 Deisi Andrews MD [address] [place] [address] PCP - General FAMILY PRACTICE 06/15/17 10/14/19 Neva Holden MD [facility] [address] [place] [address] PCP - General FAMILY PRACTICE 10/15/19 12/05/19 Deisi Andrews MD [address] [place] [address] PCP - General FAMILY PRACTICE 12/06/19 02/13/20 Neva Holden MD [facility] [address] [place] [address] PCP - General FAMILY PRACTICE 02/14/20 Asa Mcnamara MD [facility]. [facility] [address] [place] [address] Stephen Oracle Software Engineer CARDIOVASCULAR DISEASE 05/15/16 documented as of this encounter
--- OUTSIDE RECORDS SUMMARY | 2024-11-12 04:50 | XMS_ITS | Encounter Summary ---
Author Organization [facility] Address [address] [facility] [place], [place] [address] [place] [address] Care Team Providers Care Cnc Operator Programmer Name Role Phone Dane Sullivan DO Primary Care Provider + [phone] Asa Mcnamara MD Unavailable +[phone] SullivanDane L DO Primary Care Provider + [phone] SullivanFarnazDane L DO Primary Care Provider + [phone] SullivanFarnazDane L DO Primary Care Provider + [phone] Sullivan Dane L DO Primary Care Provider + [phone] Sullivan Dane L DO Primary Care Provider + [phone] Heber Adorno MD Primary Care Provider Unavailable Encounter Details Date Type Department Care Team (Late st Contact Info) Description 11/13/2014 [facility] AT [facility] [address] [place] [address] Md Generic MD Vivi Social History Tobacco Use Types Packs/Day Years Used Date Smoking Tobacco: Never Assessed Comments Unknown Sex and Gender Information Value Date Recorded Sex Assigned at Female 12/06/2019 3:36 PM MANAGER OF DISASTER RECOVERY Legal Sex Female 5:20 PM CDT Gender Identity Female 12/06/2019 3:36 PM MANAGER OF DISASTER RECOVERY Sexual Orientation Straight 12/06/2019 3: 36 PM MANAGER OF DISASTER RECOVERY documented as of this encounter Plan of Treatment Not on file documented as of this encounter Visit Diagnoses Not on filedocumented in this encounter Care Teams Cnc Operator Programmer Relationship Specialty Start Date End Date Dane [...] - General 06/27/15 09/23/15 Asa Mcnamara MD [facility]. [facility] [address] [place] [address] [place] Director Online Marketing CARDIOVASCULAR DISEASE 05/15/16 documented as of this encounter
--- OUTSIDE RECORDS SUMMARY | 2024-11-12 04:50 | XMS_ITS | Encounter Summary ---
Author Organization [facility] Address [address] [facility]. [place], [place] [address] [place] [address] Care Team Providers Care Cigar Patcher Name Role Phone Dane Sullivan DO Primary Care Provider + [phone] Asa Mcnamara MD Unavailable +[phone] Deisi Andrews MD Primary Care Provider [phone] Heber Adorno MD Primary Care Provider Unavailable Dane Sullivan DO Primary Care Provider + [phone] Dane Sullivan DO Primary Care Provider + [phone] Dane Sullivan DO Primary Care Provider + [phone] Dane Sullivan DO Primary Care Provider + [phone] Dane Sullivan DO Primary Care Provider + [phone] Heber Adorno MD Primary Care Provider Unavailable Deisi Andrews MD Primary Care Provider [phone] Encounter Details Date Type Department Care Team (Late st Contact Info) Description 10/07/[address] [facility] [place] [address] Heber Adorno MD Social History Tobacco Use Types Packs/Day Years Used Date Smoking Tobacco: Never Assessed Comments Unknown Sex and Gender Information Value Date Recorded Sex Assigned at Female 12/06/2019 3:36 PM PAINTER FOREMAN Legal Sex Female 5:20 PM CDT Gender Identity Female 12/06/2019 3:36 PM PAINTER FOREMAN Sexual Orientation Straight 12/06/2019 3: 36 PM PAINTER FOREMAN documented as of this encounter Plan of Treatment Not on file documented as of this encounter Visit Diagnoses Not on filedocumented in this encounter Care Teams Cigar Patcher Relationship Specialty Start Date End Date Dane Sullivan DO PCP - General FAMILY PRACTICE 05/15/16 02/11/17 Deisi Andrews MD [address] [place] [address] PCP - General FAMILY PRACTICE 02/13/17 03/10/17 [...] - General 06/27/15 09/23/15 Deisi Andrews MD [address] [place] [address] [place] [address] PCP - General FAMILY PRACTICE 06/15/17 10/14/19 Asa Mcnamara MD [facility]. [facility] [address] [place] [address] [place] Ore Sampler CARDIOVASCULAR DISEASE 05/15/16 documented as of this encounter
--- OUTSIDE RECORDS SUMMARY | 2024-11-12 04:50 | XMS_ITS | Encounter Summary ---
Author Organization [facility] Address [address] [facility]. [place], [place] [address] [place] [address] Care Team Providers Care Senior Courtroom Clerk Name Role Phone Dane Sullivan DO Primary Care Provider + [phone] Asa Mcnamara MD Unavailable +[phone] Deisi Andrews MD Primary Care Provider [phone] Md Generic Vivi HUYNH Primary Care Provider Unavailable Dane Sullivan DO Primary Care Provider + [phone] Dane Sullivan DO Primary Care Provider + [phone] Dane Sullivan DO Primary Care Provider + [phone] Dane Sullivan DO Primary Care Provider + [phone] Dane Sullivan DO Primary Care Provider + [phone] Md Generic Vivi HUYNH Primary Care Provider Unavailable Deisi Andrews MD Primary Care Provider [phone] Encounter Details Date Type Department Care Team (Latest Contact Info) Description 07/26/2015 Abstract [facility] Medical Group Social History Tobacco Use Types Packs/Day Years Used Date Smoking Tobacco: Never Assessed Comments Unknown Sex and Gender Information Value Date Recorded Sex Assigned at Female 12/06/2019 3:36 PM MOTOR AND CONTROLS TESTER Legal Sex Female 5:20 PM CDT Gender Identity Female 12/06/2019 3:36 PM MOTOR AND CONTROLS TESTER Sexual Orientation Straight 12/06/2019 3: 36 PM MOTOR AND CONTROLS TESTER documented as of this encounter Plan of Treatment Not on file documented as of this encounter Visit Diagnoses Not on filedocumented in this encounter Care Teams Senior Courtroom Clerk Relationship Specialty Start Date End Date Dane Sullivan DO PCP - General FAMILY PRACTICE 05/15/16 02/11/17 Deisi Andrews MD [address] [place] [address] PCP - General FAMILY PRACTICE 02/13/17 03/10/17 [...] General 06/27/15 09/23/15 Deisi Andrews MD [address] [place] [address] PCP - General FAMILY PRACTICE 06/15/17 10/14/19 Asa Mcnamara [address] [facility]. [facility] [address] [place] [address] [place] Hat Mender CARDIOVASCULAR DISEASE 05/15/16 documented as of this encounter
--- OUTSIDE RECORDS SUMMARY | 2024-11-12 04:50 | XMS_ITS | Encounter Summary ---
Author Organization [facility] Address [address] [facility]. [place], [place] [address] [place] [address] Care Team Providers Care Brazing Machine Feeder Name Role Phone Dane Sullivan DO Primary Care Provider + [phone] Asa Mcnamara MD Unavailable +[phone] Deisi Andrews MD Primary Care Provider [phone] Md Generic Vivi HUYNH Primary Care Provider Unavailable Dane Sullivan DO Primary Care Provider + [phone] Dane Sullivan DO Primary Care Provider + [phone] Dane Sullivan DO Primary Care Provider + [phone] Dane Sullivan DO Primary Care Provider + [phone] Dane Sullivan DO Primary Care Provider + [phone] Md Generic Vivi HUYNH Primary Care Provider Unavailable Deisi Andrews MD Primary Care Provider [phone] Encounter Details Date Type Department Care Team (Latest Contact Info) Description 05/22/2015 Abstract [facility] Medical Group Social History Tobacco Use Types Packs/Day Years Used Date Smoking Tobacco: Never Assessed Comments Unknown Sex and Gender Information Value Date Recorded Sex Assigned at Female 12/06/2019 3:36 PM PEST TECHNICIAN Legal Sex Female 5:20 PM CDT Gender Identity Female 12/06/2019 3:36 PM PEST TECHNICIAN Sexual Orientation Straight 12/06/2019 3: 36 PM PEST TECHNICIAN documented as of this encounter Plan of Treatment Not on file documented as of this encounter Visit Diagnoses Not on filedocumented in this encounter Care Teams Brazing Machine Feeder Relationship Specialty Start Date End Date Dane Sullivan DO PCP - General FAMILY PRACTICE 05/15/16 02/11/17 Deisi Andrews MD [address] [place] [address] PCP - General FAMILY PRACTICE 02/13/17 03/10/17 [...] General 06/27/15 09/23/15 Deisi Andrews MD [address] [place] [address] PCP - General FAMILY PRACTICE 06/15/17 10/14/19 Asa Mcnamara MD [facility]. [facility] [address] [place] [address] [place] Agricultural Technician CARDIOVASCULAR DISEASE 05/15/16 documented as of this encounter
--- OUTSIDE RECORDS SUMMARY | 2024-11-12 04:50 | XMS_ITS | Encounter Summary ---
Author Organization [facility] Address [address] [facility]. [place], [place] [address] [place] [address] Care Team Providers Care Printing Machinist Name Role Phone Dane Sullivan DO Primary Care Provider + [phone] Asa Mcnamara MD Unavailable +[phone] Deisi Andrews MD Primary Care Provider [phone] Heber Huynh MD Primary Care Provider Unavailable Dane Sullivan DO Primary Care Provider + [phone] Dane Sullivan DO Primary Care Provider + [phone] Dane Sullivan DO Primary Care Provider + [phone] Dane Sullivan DO Primary Care Provider + [phone] Deisi Andrews MD Primary Care Provider [phone] Encounter Details Date Type Department Care Team (Late st Contact Info) Description 11/12/[address] [facility] [place] [address] Dane Sullivan DO [address] [id number] Social History Tobacco Use Types Packs/Day Years Used Date Smoking Tobacco: Never Assessed Comments Unknown Sex and Gender Information Value Date Recorded Sex Assigned at Female 12/06/2019 3:36 PM TEEN COUNSELOR Legal Sex Female 5:20 PM CDT Gender Identity Female 12/06/2019 3:36 PM TEEN COUNSELOR Sexual Orientation Straight 12/06/2019 3: 36 PM TEEN COUNSELOR documented as of this encounter Plan of Treatment Not on file documented as of this encounter Procedures Procedure Name Priority Date/Time Associated Diagnosis Comments AST/SGOT Routine 11/12/2015 10:21 AM TEEN COUNSELOR LIPID PANEL Routine 11/12/2015 10:21 AM TEEN COUNSELOR ALT/SGPT Routine 11/12/2015 10:21 AM TEEN COUNSELOR documented in this encounter Results * (ABNORMAL) LIPID PANEL (11/12/2015 10:21 AM TEEN COUNSELOR) LIPID INTERPRETATION 11/12/2015 7:42 PM TEEN COUNSELOR [facility] Comment: NIH CONCENSUS REPORT RECOMMENDATIONS: [...] ?--- ?LDL ? >=160 ?>=130 CHOL/HDL RATIO 4.3 0.0 - 4.5 11/12/2015 7:42 PM [facility] CHOLESTEROL 204(H) <200 mg/dL 11/12/2015 7:42 PM [facility] Comment: NOTE: Acetaminophen, N Acetyl p benzoquinone imine (NAPQI), N acetylcysteine (NAC), Metamizole, 4 Aminoantipyrine (4 AAP) and 4 Methylamino antipyrine (4 MAP) at high concentrations can cause falsely low results on Lactate, Uric Acid, Cholesterol, Triglyceride, HDL, and Direct LDL. HDL 48(L) >59 mg/dL 11/12/2015 7:42 PM [facility] DIRECT LDL 115(H) <100 mg/dL 11/12/2015 7:42 PM [facility] NON HDL CHOLESTEROL 156(H) <130 mg/dL 11/12/2015 7:42 PM [facility] Comment: NOTE: WHEN THE TRIGLYCERIDES ARE >200 mg/dL, NON HDL C IS A SECONDARY TARGET OF THERAPY, WITH A GOAL 30 mg/dL HIGHER THAN THE IDENTIFIED LDL C GOAL. TRIGLYCERIDES 203(H) <150 mg/dL 11/12/2015 7:42 PM [facility] VLDL CALCULATION 41 5 - 55 mg/dL 11/12/2015 7:42 PM [facility] 11/12/2015 10:2 1 AM TEEN COUNSELOR 11/12/2015 7:22 PM TEEN COUNSELOR us Generic Conversion Md [facility] Final R esult Performing Organization Address City/[facility]/ZIP Co de Phone Number [facility] [address] [place] [address], * AST/SGOT (11/12/2015 10:21 AM TEEN COUNSELOR) AST 12 0 - 32 IU/L 11/12/2015 7:42 PM TEEN COUNSELOR [facility] SERUM OR PLASMA SPECIMEN / Unknown 11/12/2015 10:21 AM TEEN COUNSELOR 11/12/2015 7:22 PM TEEN COUNSELOR Generic Conversion Md [facility] Final R esult Performing Organization Address [facility]/ZIP Co de Phone Number [facility] [address] [place] [address], * ALT/SGPT (11/12/2015 10:21 AM TEEN COUNSELOR) ALT 16 0 - 33 IU/L 11/12/2015 7:42 PM TEEN COUNSELOR [facility] SERUM OR PLASMA SPECIMEN / Unknown 11/12/2015 10:21 AM TEEN COUNSELOR 11/12/2015 7:22 PM TEEN COUNSELOR Generic Conversion Md [facility] Final R esult Performing Organization Address [facility]/ZIP Co de Phone Number [facility] [address] [place] [address], documented in this encounter Visit Diagnoses Diagnosis Hyperlipidemia Other and unspecified hyperlipidemia documented in this encounter Care Teams Printing Machinist Relationship Specialty Start Date End Date Dane Sullivan DO PCP - General FAMILY PRACTICE 05/15/16 02/11/17 Deisi Andrews MD [address] [place] [place] [address] PCP - General FAMILY PRACTICE 02/13/17 03/10/17 Heber Huynh MD PCP - General 03/11/17 06/14/17 Dane Sullivan DO PCP - General 05/04/16 05/14/16 Dane Sullivan DO PCP - General 04/17/16 05/03/16 Dane Sullivan DO PCP - General 03/26/16 04/16/16 Dane Sullivan DO PCP - General 11/12/15 03/25/16 Deisi Andrews MD [address] [place] [place] [address] PCP - General FAMILY PRACTICE 06/15/17 10/14/19 Asa Mcnamara MD [facility]. [facility] [address] [place] [address] [place] Ticket Chopper Assembler CARDIOVASCULAR DISEASE 05/15/16 documented as of this encounter
--- OUTSIDE RECORDS SUMMARY | 2024-11-12 04:50 | XMS_ITS | Encounter Summary ---
Author Organization [facility] Address [address] [facility] [place], [place] [address] [place] [address] Care Team Providers Care Sprinkling System Installer Name Role Phone Dane Sullivan DO Primary Care Provider + [phone] Asa Mcnamara MD Unavailable +[phone] Deisi Andrews MD Primary Care Provider [phone] Heber Adorno MD Primary Care Provider Unavailable Dane Sullivan DO Primary Care Provider + [phone] Dane Sullivan DO Primary Care Provider + [phone] Dane Sullivan DO Primary Care Provider + [phone] Dane Sullivan DO Primary Care Provider + [phone] Dane Sullivan DO Primary Care Provider + [phone] Heber Adorno MD Primary Care Provider Unavailable Deisi Andrews MD Primary Care Provider +[phone] Neva Holden MD Primary Care Provider +[phone] Deisi Andrews MD Primary Care Provider +- [phone] Neva Holden MD Primary Care Provider +[phone] Encounter Details Date Type Department Care Team (Late st Contact Info) Description 01/03/2008 Abstract [facility] Therapy [address] [place] [address] Heber Adorno MD Social History Tobacco Use Types Packs/Day Years Used Date Smoking Tobacco: Never Assessed Comments Unknown Sex and Gender Information Value Date Recorded Sex Assigned at Female 12/06/2019 3:36 PM SHOP WORKER Legal Sex Female 5:20 PM CDT Gender Identity Female 12/06/2019 3:36 PM SHOP WORKER Sexual Orientation Straight 12/06/2019 3: 36 PM SHOP WORKER COVID-19 Exposure Response Date Recorded In the last month, have you been in contact with someone who was confirmed or suspected to have Coronavirus / COVID-19? Unable to assess 06/14/2020 2:13 PM CDT documented as of this encounter Plan of Treatment Not on file documented as of this encounter Visit Diagnoses Not on filedocumented in this encounter Care Teams Sprinkling System Installer Relationship Specialty Start Date End Date Dane Sullivan DO PCP - General FAMILY PRACTICE 05/15/16 02/11/17 Deisi Andrews MD [address] [place] [address] [place] [address] PCP - General FAMILY PRACTICE 02/13/17 03/10/17 [...] General 06/27/15 09/23/15 Deisi Andrews MD [address] [place] [address] PCP - General FAMILY PRACTICE 06/15/17 10/14/19 Neva Holden MD [facility] [address] [place] [address] PCP - General FAMILY PRACTICE 10/15/19 12/05/19 Deisi Andrews MD [address] [place] [address] PCP - General FAMILY PRACTICE 12/06/19 02/13/20 Neva Holden MD . [facility] [address] [place] [address] PCP - General FAMILY PRACTICE 02/14/20 Asa Mcnamara MD [facility]. [facility] [address] [place] [address] [place] Supervisor Dog License Officer CARDIOVASCULAR DISEASE 05/15/16 documented as of this encounter
--- OUTSIDE RECORDS SUMMARY | 2024-11-12 04:50 | XMS_ITS | Encounter Summary ---
Author Organization [facility] Address [address] [facility] [place], [place] [address] [place] [address] Care Team Providers Care Nurse Advisor Name Role Phone Dane Sullivan DO Primary Care Provider + [phone] Asa Mcnamara MD Unavailable +[phone] Deisi Andrews MD Primary Care Provider [phone] Heber Adorno MD Primary Care Provider Unavailable Dane Sullivan DO Primary Care Provider + [phone] Dane Sullivan DO Primary Care Provider + [phone] Dane Sullivan DO Primary Care Provider + [phone] Dane Sullivan DO Primary Care Provider + [phone] Dane Sullivan DO Primary Care Provider + [phone] Heber Adorno MD Primary Care Provider Unavailable Deisi Andrews MD Primary Care Provider +[phone] Encounter Details Date Type Department Care Team (Late st Contact Info) Description 08/01/2010 [place] [address] Heber Adorno MD Social History Tobacco Use Types Packs/Day Years Used Date Smoking Tobacco: Never Assessed Comments Unknown Sex and Gender Information Value Date Recorded Sex Assigned at Female 12/06/2019 3:36 PM MOOSE HUNTER Legal Sex Female 5:20 PM CDT Gender Identity Female 12/06/2019 3:36 PM MOOSE HUNTER Sexual Orientation Straight 12/06/2019 3: 36 PM MOOSE HUNTER documented as of this encounter Plan of Treatment Not on file documented as of this encounter Visit Diagnoses Not on filedocumented in this encounter Care Teams Nurse Advisor Relationship Specialty Start Date End Date Dane Sullivan DO PCP - General FAMILY PRACTICE 05/15/16 02/11/17 Deisi Andrews MD [address] [place] [address] PCP - General FAMILY PRACTICE 02/13/17 [...] General 06/27/15 09/23/15 Deisi Andrews MD [address] [place] [address] PCP - General FAMILY PRACTICE 06/15/17 10/14/19 Asa Mcnamara MD [facility] [address] [place] [address] [place] Refuse Driver CARDIOVASCULAR DISEASE 05/15/16 documented as of this encounter
--- OUTSIDE RECORDS SUMMARY | 2024-11-12 04:50 | XMS_ITS | Encounter Summary ---
Author Organization [facility] Address [address] [facility]. [place], [place] [address] [place] [address] Care Team Providers Care Tricot Knitting Machine Operator Name Role Phone Dane Sullivan DO Primary Care Provider + [phone] Asa Mcnamara MD Unavailable [phone] Deisi Andrews MD Primary Care Provider [phone] Heber Adorno MD Primary Care Provider Unavailable Dane Sullivan DO Primary Care Provider + [phone] Dane Sullivan DO Primary Care Provider + [phone] Dane Sullivan DO Primary Care Provider + [phone] Dane Sullivan DO Primary Care Provider + [phone] Dane Sullivan DO Primary Care Provider + [phone] Heber Adorno MD Primary Care Provider Unavailable Deisi Andrews MD Primary Care Provider [phone] Neva Holden MD Primary Care Provider [phone] Deisi Andrews MD Primary Care Provider [phone] Neva Holden MD Primary Care Provider +[phone] Encounter Details Date Type Department Care Team (Late st Contact Info) Description 01/06/2007 Abstract [facility] [address] [facility] [place] [address] Starr Cadet DO [address] [place] [address] [place] [address] Social History Tobacco Use Types Packs/Day Years Used Date Smoking Tobacco: Never Assessed Comments Unknown Sex and Gender Information Value Date Recorded Sex Assigned at Female 12/06/2019 3:36 PM SEED SORTER Legal Sex Female 5:20 PM CDT Gender Identity Female 12/06/2019 3:36 PM SEED SORTER Sexual Orientation Straight 12/06/2019 3: 36 PM SEED SORTER COVID-19 Exposure Response Date Recorded In the last month, have you been in contact with someone who was confirmed or suspected to have Coronavirus / COVID-19? Unable to assess 06/14/2020 2:13 PM CDT documented as of this encounter Plan of Treatment Not on file documented as of this encounter Visit Diagnoses Not on filedocumented in this encounter Care Teams Tricot Knitting Machine Operator Relationship Specialty Start Date End Date Dane Sullivan DO PCP - General FAMILY PRACTICE 05/15/16 02/11/17 Deisi Andrews MD [address] [place] [address] [place] [address] PCP - General FAMILY PRACTICE 02/13/17 03/10/17 [...] General 06/27/15 09/23/15 Deisi Andrews MD [address] [place] [address] PCP - General FAMILY PRACTICE 06/15/17 10/14/19 Neva Holden MD [facility] [address] [place] [address] PCP - General FAMILY PRACTICE 10/15/19 12/05/19 Deisi Andrews MD [address] [place] [address] PCP - General FAMILY PRACTICE 12/06/19 02/13/20 Neva Holden MD [facility] [address] [place] [address] PCP - General FAMILY PRACTICE 02/14/20 Asa Mcnamara MD [facility]. [address] [place] [address] [place] Hostess Cashier CARDIOVASCULAR DISEASE 05/15/16 documented as of this encounter
--- OUTSIDE RECORDS SUMMARY | 2024-11-12 04:50 | XMS_ITS | Encounter Summary ---
Author Organization [facility] Address [address] [facility]. [place], [place] [address] [place] [address] Care Team Providers Care Rim Fire Priming Operator Name Role Phone Dane Sullivan DO Primary Care Provider + [phone] Asa Mcnamara MD Unavailable [phone] Deisi Andrews MD Primary Care Provider [phone] Heber Adorno MD Primary Care Provider Unavailable Dane Sullivan DO Primary Care Provider + [phone] Dane Sullivan DO Primary Care Provider + [phone] Dane Sullivan DO Primary Care Provider + [phone] Dane Sullivan DO Primary Care Provider + [phone] Dane Sullivan DO Primary Care Provider + [phone] Heber Adorno MD Primary Care Provider Unavailable Deisi Andrews MD Primary Care Provider [phone] Neva Holden MD Primary Care Provider +[phone] Deisi Andrews MD Primary Care Provider [phone] Neva Holden MD Primary Care Provider [phone] Encounter Details Date Type Department Care Team (Late st Contact Info) Description 10/11/2007 Abstract [facility] Emergency Services [address] [place] [address] [place], [place] [phone] Heber Adorno MD Social History Tobacco Use Types Packs/Day Years Used Date Smoking Tobacco: Never Assessed Comments Unknown Sex and Gender Information Value Date Recorded Sex Assigned at Female 12/06/2019 3:36 PM HANDKERCHIEF PRESSER Legal Sex Female 5:20 PM CDT Gender Identity Female 12/06/2019 3:36 PM HANDKERCHIEF PRESSER Sexual Orientation Straight 12/06/2019 3: 36 PM HANDKERCHIEF PRESSER COVID-19 Exposure Response Date Recorded In the last month, have you been in contact with someone who was confirmed or suspected to have Coronavirus / COVID-19? Unable to assess 06/14/2020 2:13 PM CDT documented as of this encounter Plan of Treatment Not on file documented as of this encounter Visit Diagnoses Not on filedocumented in this encounter Care Teams Rim Fire Priming Operator Relationship Specialty Start Date End Date Dane Sullivan DO PCP - General FAMILY PRACTICE 05/15/16 02/11/17 Deisi Andrews MD [address] [place] [address] [place] [address] PCP - General FAMILY PRACTICE 02/13/17 03/10/17 [...] General 06/27/15 09/23/15 Deisi Andrews MD [address] [place] [address] PCP - General FAMILY PRACTICE 06/15/17 10/14/19 Neva Holden MD [facility] [address] [place] [address] PCP - General FAMILY PRACTICE 10/15/19 12/05/19 Deisi Andrews MD [address] [place] [address] PCP - General FAMILY PRACTICE 12/06/19 02/13/20 Neva Holden MD . [place] [facility] [address] [place] [address] PCP - General FAMILY PRACTICE 02/14/20 Asa Mcnamara MD [facility]. [address] [place] [address] [place] [employer] Donation Professional CARDIOVASCULAR DISEASE 05/15/16 documented as of this encounter
--- OUTSIDE RECORDS SUMMARY | 2024-11-12 04:50 | XMS_ITS | Encounter Summary ---
Author Organization [facility] Address [address] [facility] [place] [address] [place] [address] Care Team Providers Care Billing Control Clerk Name Role Phone Dane Sullivan DO Primary Care Provider + [phone] Asa Mcnamara MD Unavailable +[phone] Deisi Andrews MD Primary Care Provider [phone] Heber Adorno MD Primary Care Provider Unavailable Dane Sullivan DO Primary Care Provider + [phone] Dane Sullivan DO Primary Care Provider + [phone] Dane Sullivan DO Primary Care Provider + [phone] Dane Sullivan DO Primary Care Provider + [phone] Deisi Andrews MD Primary Care Provider [phone] Encounter Details Date Type Department Care Team (Late st Contact Info) Description 11/12/2015 Abstract [facility] Family Medicine - [address] [address] Dane Sullivan DO [address] [phone] Social History Tobacco Use Types Packs/Day Years Used Date Smoking Tobacco: Never Assessed Comments Unknown Sex and Gender Information Value Date Recorded Sex Assigned at Female 12/06/2019 3:36 PM TUBE CLOSING 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 Legal Sex Female 5:20 PM CDT Gender Identity Female 12/06/2019 3:36 PM TUBE CLOSING 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 Sexual Orientation Straight 12/06/2019 3: 36 PM TUBE CLOSING 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 documented as of this encounter Last Filed Vital Signs Vital Sign Reading Time Taken Comments Blood Pressure 140/90 11/12/2015 10:04 AM TUBE CLOSING 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 Pulse 94 11/12/2015 10:04 AM TUBE CLOSING 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 Temperature - - Respiratory Rate - - Oxygen Saturation - - Inhaled Oxygen Concentration - - Weight 100.7 kg (222 lb) 11/12/2015 10:04 AM TUBE CLOSING 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 Height - - Body Mass Index 40.6 09/24/2015 1:13 PM TUBE CLOSING 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 documented in this encounter Progress Notes * Dane Sullivan, DO - 11/12/2015 10:00 AM CST History of Present Illness HPI Free Text: On Nov 06, had c/o silva flank pain went to ER, CT showed strandings pain did not go away until morphine and dilaudid Pt has a f/u appt with head pastry chef in [place], will be seeing Dr Pandey symptoms have since resolved, has no problems with this today She is also here for f/u HLD since last visit, she has been taking her chol medication Pt has not changed her diet has gained some weight pt is starting water aerobic tomorrow Also here for f/u HTN currently on denies any CP, SOB or NV Has DM2 FBS about 121-143 One day it was 198, but this is rare for here pt also c/o nasal congestion lots of mucus production non-productive coughing Has been having coughing for [address] Garcia who said likely GERD Pt states she was given zantac 150 and this helped Has also seen ENT for this, was told if coughing continues, to make f/u appt Review of systems General: denies any fevers, chills. Gastrointestinal: Patient denies any nausea, vomiting, diarrhea or constipation Genitourinary: Patient denies dysuria, hematuria, urgency or frequency Cardiovascular: Patient denies Chest pain, shortness of [...] murmurs, clicks or bruits. Abdomen: Nondistended, Nontender. Extremities: No clubbing, cyanosis, or edema noted. [...] ?? Smoking (305.1) (F17.200) Current Meds 1. Ativan TABS; Therapy: (Recorded:[id number]) to Recorded Allergies 1. Halcion 2. Haldol 3. Penicillins 4. Risperidone and Related Immunizations Influenza --- Series1: [id number] Vitals Recorded: [id number] 10:04AM Heart Rate 94 Respiration 18 Systolic 140 Diastolic 90 Weight 222 lb BMI Calculated 40.6 BSA Calculated 2 Assessment 1. Hypertension (401.9) (I10) 2. Hyperlipidemia (272.4) (E78.5) 3. Diabetes mellitus, type 2 (250.00) (E11.9) 4. Flank pain (789.09) (R10.9) 5. Cough (786.2) (R05) Plan Hyperlipidemia 1. ALT ( SGPT ); Status:Hold For - Manual Activation; Requested for:[id number]; Perform:[facility]; Due:12Dec2015;Ordered; For:Hyperlipidemia; Ordered By:Dane Sullivan; 2. AST ( SGOT ); Status:Hold For - Manual Activation; Requested for:[id number]; Perform:[facility]; Due:12Dec2015;Ordered; For:Hyperlipidemia; Ordered By:Dane Sullivan; 3. Lipid Profile; Status:Hold For - Manual Activation; Requested for:[id number]; Perform:[facility]; Due:12Dec2015;Ordered; For:Hyperlipidemia; Ordered By:Dane Sullivan; Hypertension 4. From AmLODIPine Besylate 5 MG Oral Tablet TAKE 1 TABLET DAILY DIRECTED To AmLODIPine Besylate 10 MG Oral Tablet TAKE 1 TABLET DAILY FOR BLOOD PRESSURE Rx By: Dane Sullivan; Dispense: 90 Days ; #:90 Tablet; Refill: 1; For: Hypertension; ADAM = N; Sent To: [facility] URTI (acute upper respiratory infection) 5. Clindamycin HCl - 300 MG Oral Capsule Rx By: Dane Sullivan; Dispense: 7 Days ; #:28 Capsule; Refill: 0; For: URTI (acute upper respiratory infection); ADAM = N; Sent To: [facility]; Last Updated By: Jennifer Wayne; 11/12/2015 10:04:26 AM 6. Nicotine 21-14-7 MG/24HR Transdermal Kit Rx By: Dane Sullivan; Dispense: 0 Days ; #:1 Kit; Refill: 0; For: URTI (acute upper respiratory infection); ADAM = N; Sent To: [facility]; Last Updated By: Jennifer Wayne; 11/12/2015 10:04:26 AM Unlinked 7. Wellbutrin XL 150 MG Oral Tablet Extended Release 24 Hour (BuPROPion HCl ER (XL)) Dispense: 0 Days ; #: Sufficient TB24; Refill: 0; ADAM = N; Record; Last Updated By: Jennifer Wayne; 11/12/2015 10:04:26 AM Discussion/Summary coughing has been going on for 2 mos now advised to make appt with dr Paris, her ENT specialist HTN not quite controlled for DM2 will increase CCB f/u 3 mos HLD check labs cont meds advised diet and exercise flank pain now resolved, not sure what stranding of kidneys are requesting [place] notes keep f/u with nephrology DM2 last A1C controlled cont meds on losartan already advised to quit smoking f/u 3 mos Signatures Electronically signed by : Dane Sullivan D.O.; Nov 12 2015 10:19AM TUBE CLOSING 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 (Author) documented in this encounter Plan of Treatment Not on file documented as of this encounter Procedures Procedure Name Priority Date/Time Associated Diagnosis Comments AST/SGOT Routine 11/12/2015 10:21 AM TUBE CLOSING 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 LIPID PANEL Routine 11/12/2015 10:21 AM TUBE CLOSING 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 ALT/SGPT Routine 11/12/2015 10:21 AM TUBE CLOSING 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 documented in this encounter Results * (ABNORMAL) LIPID PANEL (11/12/2015 10:21 AM TUBE CLOSING 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) CHOLESTEROL 204(H) <200 mg/dL [facility] TO EPIC CONVERSION Comment: Result Comment: NOTE: Acetaminophen, N Acetyl p benzoquinone imine (NAPQI), N acetylcysteine (NAC), Metamizole, 4 Aminoantipyrine (4 AAP) and 4 Methylamino antipyrine (4 MAP) at high concentrations can cause falsely low results on Lactate, Uric Acid, Cholesterol, Triglyceride, HDL, and Direct LDL. TRIGLYCERIDES 203(H) <150 mg/dL [facility] TO EPIC CONVERSION HDL 48(L) >59 mg/dL [facility] TO EPIC CONVERSION LDL (CALCULATED) 115(H) <100 mg/dL [facility] TO EPIC CONVERSION NON HDL CHOLESTEROL 156(H) <130 mg/dL [facility] TO EPIC CONVERSION Comment: Result Comment: NOTE: WHEN THE TRIGLYCERIDES ARE >200 mg/dL, NON HDL C IS A SECONDARY TARGET OF THERAPY, WITH A GOAL 30 mg/dL HIGHER THAN THE IDENTIFIED LDL C GOAL. CHOL/HDL RATIO 4.3 0.0 - 4.5 [facility] TO EPIC CONVERSION VLDL CHOLESTEROL (LMP) 41 5 - 55 mg/dL [facility] TO EPIC CONVERSION LIPID INTERPRETATION NIH CONCENSUS REPORT RECOMMENDATI ONS: ?ADULT ?CHILD ??LOW RISK: ?CHOLESTERO L ? <200 ? <170 ?TRIGLYCERI DE ?<150 ?--- ?HDL ? >=60 ?--- ?LDL ? <100 ? <110 ?BORDERLINE : ?CHOLESTERO L ? 200-239 ?? 170-199 ?TRIGLYCERI DE ?150-199 ? --- ?HDL ?40-59 ?--- ?LDL ? 100-159 ?? 110-129 ?HIGH RISK: ?CHOLESTERO L ? >=240 ?>=200 ?TRIGLYCERI DE ?>=200 ? --- ?HDL ?<40 ?--- ?LDL ? >=160 ?>=130 [facility] TO EPIC CONVERSION 11/12/2015 10:2 1 AM TUBE CLOSING 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 11/12/2015 10:21 AM TUBE CLOSING 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 Narrative [facility] TO EPIC CONVERSION - 11/12/2015 7:42 PM TUBE CLOSING 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 Result Communication: Mail Results to Patient Dane Sullivan DO LABORATORY Final Result Performing Organization Address [facility] de Phone Number [facility] TO EPIC CONVERSION * ALT/SGPT (11/12/2015 10:21 AM TUBE CLOSING 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) ALT 16 0 - 33 IU/L [facility] TO EPIC CONVERSION 11/12/2015 10:2 1 AM TUBE CLOSING 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 11/12/2015 10:21 AM TUBE CLOSING 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 Narrative [facility] TO EPIC CONVERSION - 11/12/2015 7:42 PM TUBE CLOSING 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 Result Communication: Mail Results to Patient Dane Sullivan DO LABORATORY Final Result Performing Organization Address [facility] de Phone Number [facility] TO EPIC CONVERSION * AST/SGOT (11/12/2015 10:21 AM TUBE CLOSING 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) AST 12 0 - 32 IU/L [facility] TO EPIC CONVERSION 11/12/2015 10:2 1 AM TUBE CLOSING 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 11/12/2015 10:21 AM TUBE CLOSING 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 Narrative [facility] TO EPIC CONVERSION - 11/12/2015 7:42 PM TUBE CLOSING 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 Result Communication: Mail Results to Patient Dane Sullivan DO LABORATORY Final Result [facility] TO EPIC CONVERSION documented in this encounter Visit Diagnoses Not on filedocumented in this encounter Care Teams Billing Control Clerk Relationship Specialty Start Date End Date Dane Sullivan DO PCP - General FAMILY PRACTICE 05/15/16 02/11/17 Deisi Andrews MD [address] [place] [address] PCP - General FAMILY PRACTICE 02/13/17 03/10/17 Heber Adorno MD PCP - General 03/11/17 06/14/17 Dane Sullivan DO PCP - General 05/04/16 05/14/16 Dane Sullivan DO PCP - General 04/17/16 05/03/16 Dane Sullivan DO PCP - General 03/26/16 04/16/16 Dane Sullivan DO PCP - General 11/12/15 03/25/16 Deisi Andrews MD [address] [place] [address] PCP - General FAMILY PRACTICE 06/15/17 10/14/19 Asa Mcnamara MD [address] [address] [employer] Night Auditor CARDIOVASCULAR DISEASE 05/15/16 documented as of this encounter
--- OUTSIDE RECORDS SUMMARY | 2024-11-12 04:50 | XMS_ITS | Encounter Summary ---
Author Organization [facility] Address [address] [facility]. [place], [place] [address] [place] [address] Care Team Providers Care Hold Worker Name Role Phone Dane Sullivan DO Primary Care Provider + [phone] Asa Mcnamara MD Unavailable [phone] Deisi Andrews MD Primary Care Provider [phone] Heber Adorno MD Primary Care Provider Unavailable Dane Sullivan DO Primary Care Provider + [phone] Dane Sullivan DO Primary Care Provider + [phone] Dane Sullivan DO Primary Care Provider + [phone] Dane Sullivan DO Primary Care Provider + [phone] Dane Sullivan DO Primary Care Provider + [phone] Heber Adorno MD Primary Care Provider Unavailable Deisi Andrews MD Primary Care Provider [phone] Encounter Details Date Type Department Care Team (Late st Contact Info) Description 12/10/2002 Abstract [facility] [address] [place] [address] Heber Adorno MD Social History Tobacco Use Types Packs/Day Years Used Date Smoking Tobacco: Never Assessed Comments Unknown Sex and Gender Information Value Date Recorded Sex Assigned at Female 12/06/2019 3:36 PM FRESCO ARTIST Legal Sex Female 5:20 PM CDT Gender Identity Female 12/06/2019 3:36 PM FRESCO ARTIST Sexual Orientation Straight 12/06/2019 3: 36 PM FRESCO ARTIST documented as of this encounter Plan of Treatment Not on file documented as of this encounter Visit Diagnoses Not on filedocumented in this encounter Care Teams Hold Worker Relationship Specialty Start Date End Date Dane Sullivan DO PCP - General FAMILY PRACTICE 05/15/16 02/11/17 Deisi Andrews MD [address] [place] [address] PCP - General FAMILY PRACTICE 02/13/17 03/10/17 Heber Adorno MD PCP - General 03/11/17 06/14/17 Dane Sullivan DO PCP - General 05/04/16 05/14/16 Dane Sullivan DO PCP - General 04/17/16 05/03/16 Dane Sulliavn DO PCP - General 03/26/16 04/16/16 Dane Sullivan DO PCP - General 11/12/15 03/25/16 Dane Sullivan DO PCP - General 09/24/15 11/11/15 Heber Adorno MD PCP - General 06/27/15 09/23/15 Deisi Andrews MD [address] [place] [address] [place] [address] PCP - General FAMILY PRACTICE 06/15/17 10/14/19 Asa Mcnamara MD [facility]. [facility] [address] [place] [address] [place] Groundwater Consultant CARDIOVASCULAR DISEASE 05/15/16 documented as of this encounter
--- OUTSIDE RECORDS SUMMARY | 2024-11-12 04:50 | XMS_ITS | Encounter Summary ---
Author Organization [facility] Address [address] [facility]. [place], [place] [address] [place] [address] Care Team Providers Care Dry Roaster Name Role Phone Dane Sullivan DO Primary Care Provider + [phone] Asa Mcnamara MD Unavailable [phone] SullivanDane L DO Primary Care Provider + [phone] SullivanFarnazDane L DO Primary Care Provider + [phone] SullivanFarnazDane L DO Primary Care Provider + [phone] Sullivan Dane L DO Primary Care Provider + [phone] Sullivan Dane L DO Primary Care Provider + [phone] Heber Adorno MD Primary Care Provider Unavailable Encounter Details Date Type Department Care Team (Late st Contact Info) Description 03/07/2014 [facility] [address] [place] [address] Md Generic MD Vivi Social History Tobacco Use Types Packs/Day Years Used Date Smoking Tobacco: Never Assessed Comments Unknown Sex and Gender Information Value Date Recorded Sex Assigned at Female 12/06/2019 3:36 PM LINE ASSEMBLER AIRCRAFT Legal Sex Female 5:20 PM CDT Gender Identity Female 12/06/2019 3:36 PM LINE ASSEMBLER AIRCRAFT Sexual Orientation Straight 12/06/2019 3: 36 PM LINE ASSEMBLER AIRCRAFT documented as of this encounter Plan of Treatment Not on file documented as of this encounter Visit Diagnoses Not on filedocumented in this encounter Care Teams Dry Roaster Relationship Specialty Start Date End Date Dane [...] - General 06/27/15 09/23/15 Asa Mcnamara MD [facility]. [facility] [address] [place] [address] [place] Promotions Manager CARDIOVASCULAR DISEASE 05/15/16 documented as of this encounter
--- OUTSIDE RECORDS SUMMARY | 2024-11-12 04:50 | XMS_ITS | Encounter Summary ---
Author Organization [facility] Address [address] [facility]. [place], [place] [address] [place] [address] Care Team Providers Care Rn Case Manager Hospice Name Role Phone Dane Sullivan DO Primary Care Provider + [phone] Asa Mcnamara MD Unavailable [phone] Deisi Andrews MD Primary Care Provider [phone] Md Generic Vivi HUYNH Primary Care Provider Unavailable Dane Sullivan DO Primary Care Provider + [phone] Dane Sullivan DO Primary Care Provider + [phone] Dane Sullivan DO Primary Care Provider + [phone] Dane Sullivan DO Primary Care Provider + [phone] Dane Sullivan DO Primary Care Provider + [phone] Md Generic Vivi HUYNH Primary Care Provider Unavailable Deisi Andrews MD Primary Care Provider [phone] Encounter Details Date Type Department Care Team (Latest Contact Info) Description 07/02/2015 Abstract [facility] Medical Group Social History Tobacco Use Types Packs/Day Years Used Date Smoking Tobacco: Never Assessed Comments Unknown Sex and Gender Information Value Date Recorded Sex Assigned at Female 12/06/2019 3:36 PM SERVICE CREW SUPERVISOR Legal Sex Female 5:20 PM CDT Gender Identity Female 12/06/2019 3:36 PM SERVICE CREW SUPERVISOR Sexual Orientation Straight 12/06/2019 3: 36 PM SERVICE CREW SUPERVISOR documented as of this encounter Progress Notes * Dane Sullivan DO - 07/02/2015 8:16 AM CDT Message Recorded as Task Date: 06/28/2015 09:47 AM, Created By: Mady Olivares Task Name: Follow Up Assigned To: [facility]-Nursing Team Regarding Patient: Rody Zaidi, Status: In Progress Comment: Mady Olivares - 28 Jun 2015 9:47 AM TASK CREATED Caller: Self; Other; Pt. said that pain management stated that they are interventional so they are not managment and only give injections. Starr Melendez - 28 Jun 2015 9:56 AM TASK EDITED Pt saw PM yesterday but also called us for a refill on Hydrocodone. Advised pt earlier this morningto call her PM for this. She called back stating they are interventional and do not do pain medications. Please advise about refilling. Thanks Dane Sullivan - 01 Jul 2015 8:08 AM TASK REPLIED TO: Previously Assigned To Starr Melendez are we able to get her into someone who can? Starr Melendez - 01 Jul 2015 8:36 AM TASK EDITED Starr Melendez - 01 Jul 2015 3:00 PM TASK IN PROGRESS Message: Pt can see [facility] now that they will accept her insurance again. We will fax the referral info to [facility]. I left a message for pt to call back so that we can inform her of this. /tjt Signatures Electronically signed by : Dane Sullivan D.O.; Jul 02 2015 8:45AM SERVICE CREW SUPERVISOR (Author) documented in this encounter Plan of Treatment Not on file documented as of this encounter Visit Diagnoses Not on filedocumented in this encounter Care Teams Rn Case Manager Hospice Relationship Specialty Start Date End Date Dane Sullivan DO PCP - General FAMILY PRACTICE 05/15/16 02/11/17 Deisi Andrews MD [address] [place] [address] PCP - General FAMILY PRACTICE 02/13/17 03/10/17 [...] General 06/27/15 09/23/15 Deisi Andrews MD [address] [place] [address] PCP - General FAMILY PRACTICE 06/15/17 10/14/19 Asa Mcnamara MD [facility]. [address] [place] [address] [place] Lacquer Maker CARDIOVASCULAR DISEASE 05/15/16 documented as of this encounter
--- OUTSIDE RECORDS SUMMARY | 2024-11-12 04:50 | XMS_ITS | Encounter Summary ---
Author Organization [facility] Address [address] [facility]. [place], [place] [address] [place] [address] Care Team Providers Care Service Car Operator Name Role Phone Dane Sullivan DO Primary Care Provider + [phone] Asa Mcnamara MD Unavailable +[phone] Deisi Andrews MD Primary Care Provider +[phone] Heber Adorno MD Primary Care Provider Unavailable Dane Sullivan DO Primary Care Provider + [phone] Dane Sullivan DO Primary Care Provider + [phone] Dane Sullivan DO Primary Care Provider + [phone] Dane Sullivan DO Primary Care Provider + [phone] Dane Sullivan DO Primary Care Provider + [phone] Heber Adorno MD Primary Care Provider Unavailable Deisi Andrews MD Primary Care Provider [phone] Neva Holden MD Primary Care Provider +[phone] Deisi Andrews MD Primary Care Provider +[phone] Neva Holden MD Primary Care Provider +[phone] Encounter Details Date Type Department Care Team (Late st Contact Info) Description 10/11/2007 Abstract [facility] Diagnostic [facility] [address] [facility] [place] [address] Heber Adorno MD Social History Tobacco Use Types Packs/Day Years Used Date Smoking Tobacco: Never Assessed Comments Unknown Sex and Gender Information Value Date Recorded Sex Assigned at Female 12/06/2019 3:36 PM LAMP SHADE MAKER Legal Sex Female 5:20 PM CDT Gender Identity Female 12/06/2019 3:36 PM LAMP SHADE MAKER Sexual Orientation Straight 12/06/2019 3: 36 PM LAMP SHADE MAKER COVID-19 Exposure Response Date Recorded In the last month, have you been in contact with someone who was confirmed or suspected to have Coronavirus / COVID-19? Unable to assess 06/14/2020 2:13 PM CDT documented as of this encounter Plan of Treatment Not on file documented as of this encounter Visit Diagnoses Not on filedocumented in this encounter Care Teams Service Car Operator Relationship Specialty Start Date End Date Dane Sullivan DO PCP - General FAMILY PRACTICE 05/15/16 02/11/17 Deisi Andrews MD [address] [place] [address] [place] [address] PCP - General FAMILY PRACTICE 02/13/17 03/10/17 [...] General 06/27/15 09/23/15 Deisi Andrews MD [address] [place] [address] PCP - General FAMILY PRACTICE 06/15/17 10/14/19 Neva Holden MD [facility] [address] [place] [address] PCP - General FAMILY PRACTICE 10/15/19 12/05/19 Deisi Andrews MD [address] [place] [address] PCP - General FAMILY PRACTICE 12/06/19 02/13/20 Neva Holden MD . [facility] [address] [place] [address] PCP - General FAMILY PRACTICE 02/14/20 Asa Mcnamara MD [facility]. [address] [address] [place] [address] [place] Waiter/Waitress First Class CARDIOVASCULAR DISEASE 05/15/16 documented as of this encounter
--- OUTSIDE RECORDS SUMMARY | 2024-11-12 04:50 | XMS_ITS | Encounter Summary ---
Author Organization [facility] Address [address] [facility]. [place], [place] [address] [place] [address] Care Team Providers Care Equipment Coordinator Name Role Phone Dane Sullivan DO Primary Care Provider + [phone] Asa Mcnamara MD Unavailable +[phone] Deisi Andrews MD Primary Care Provider +[phone] Heber Adorno MD Primary Care Provider Unavailable Dane Sullivan DO Primary Care Provider + [phone] Dane Sullivan DO Primary Care Provider + [phone] Dane Sullivan DO Primary Care Provider + [phone] Dane Sullivan DO Primary Care Provider + [phone] Dane Sullivan DO Primary Care Provider + [phone] Heber Adorno MD Primary Care Provider Unavailable Deisi Andrews MD Primary Care Provider +- [phone] Neva Holden MD Primary Care Provider +[phone] Deisi Andrews MD Primary Care Provider [phone] Neva Holden MD Primary Care Provider +[phone] Encounter Details Date Type Department Care Team (Late st Contact Info) Description 10/10/2006 Abstract [facility] Emergency Services [address] [place] [address] [place], [place] [id number] Caesar Pierre MD Counts include 234 beds at the [facility] [place] [address] Social History Tobacco Use Types Packs/Day Years Used Date Smoking Tobacco: Never Assessed Comments Unknown Sex and Gender Information Value Date Recorded Sex Assigned at Female 12/06/2019 3:36 PM DOWNSTREAM BIOMANUFACTURING TECHNICIAN Legal Sex Female 5:20 PM CDT Gender Identity Female 12/06/2019 3:36 PM DOWNSTREAM BIOMANUFACTURING TECHNICIAN Sexual Orientation Straight 12/06/2019 3: 36 PM DOWNSTREAM BIOMANUFACTURING TECHNICIAN COVID-19 Exposure Response Date Recorded In the last month, have you been in contact with someone who was confirmed or suspected to have Coronavirus / COVID-19? Unable to assess 06/14/2020 2:13 PM CDT documented as of this encounter Plan of Treatment Not on file documented as of this encounter Visit Diagnoses Not on filedocumented in this encounter Care Teams Equipment Coordinator Relationship Specialty Start Date End Date Dane Sullivan DO PCP - General FAMILY PRACTICE 05/15/16 02/11/17 Deisi Andrews MD [address] [place] [address] PCP - General FAMILY PRACTICE 02/13/17 03/10/17 [...] General 06/27/15 09/23/15 Deisi Andrews MD [address] [place] [address] PCP - General FAMILY PRACTICE 06/15/17 10/14/19 Neva Holden MD [facility] [address] [place] [address] PCP - General FAMILY PRACTICE 10/15/19 12/05/19 Deisi Andrews MD [address] [place] [address] PCP - General FAMILY PRACTICE 12/06/19 02/13/20 Neva Holden MD [facility] [address] [place] [address] PCP - General FAMILY PRACTICE 02/14/20 Asa Mcnamara MD [facility]. [facility] [address] [place] [address] Stephen Felt Pad Cutter CARDIOVASCULAR DISEASE 05/15/16 documented as of this encounter
--- OUTSIDE RECORDS SUMMARY | 2024-11-12 04:50 | XMS_ITS | Encounter Summary ---
Author Organization [facility] Address [address] [facility]. [place], [place] [address] [place] [address] Care Team Providers Care Manager Category Name Role Phone Dane Sullivan DO Primary Care Provider + [phone] Asa Mcnamara MD Unavailable +[phone] Deisi Andrews MD Primary Care Provider [phone] Md Generic Vivi HUYNH Primary Care Provider Unavailable Dane Sullivan DO Primary Care Provider + [phone] Dane Sullivan DO Primary Care Provider + [phone] Dane Sullivan DO Primary Care Provider + [phone] Dane Sullivan DO Primary Care Provider + [phone] Dane Sullivan DO Primary Care Provider + [phone] Md Generic Vivi HUYNH Primary Care Provider Unavailable Deisi Andrews MD Primary Care Provider [phone] Encounter Details Date Type Department Care Team (Latest Contact Info) Description 05/27/2015 Abstract [facility] Medical [facility] Social History Tobacco Use Types Packs/Day Years Used Date Smoking Tobacco: Never Assessed Comments Unknown Sex and Gender Information Value Date Recorded Sex Assigned at Female 12/06/2019 3:36 PM POULTRY FARM LABORER Legal Sex Female 5:20 PM CDT Gender Identity Female 12/06/2019 3:36 PM POULTRY FARM LABORER Sexual Orientation Straight 12/06/2019 3: 36 PM POULTRY FARM LABORER documented as of this encounter Plan of Treatment Not on file documented as of this encounter Visit Diagnoses Not on filedocumented in this encounter Care Teams Manager Category Relationship Specialty Start Date End Date Dane Sullivan DO PCP - General FAMILY PRACTICE 05/15/16 02/11/17 Deisi Andrews MD [address] [place] [address] PCP - General FAMILY PRACTICE 02/13/17 03/10/17 [...] General 06/27/15 09/23/15 Deisi Andrews MD [address] [place] [address] PCP - General FAMILY PRACTICE 06/15/17 10/14/19 Asa Mcnamara MD [facility]. [facility] [address] [place] [address] Parshall Stone Decorator CARDIOVASCULAR DISEASE 05/15/16 documented as of this encounter
--- OUTSIDE RECORDS SUMMARY | 2024-11-12 04:50 | XMS_ITS | Encounter Summary ---
Author Organization [facility] Address [address] [facility]. [place], [place] [address] [place] [address] Care Team Providers Care Field Automobile Adjuster Name Role Phone Dane Sullivan DO Primary Care Provider + [phone] Asa Mcnamara MD Unavailable [phone] SullivanDane L DO Primary Care Provider + [phone] SullivanFarnazDane L DO Primary Care Provider + [phone] SullivanFarnazDane L DO Primary Care Provider + [phone] Sullivan Dane L DO Primary Care Provider + [phone] Sullivan Dane L DO Primary Care Provider + [phone] Heber Adorno MD Primary Care Provider Unavailable Encounter Details Date Type Department Care Team (Late st Contact Info) Description 11/13/2014 Abstract [facility] [address] [place] [address] Md Generic MD Vivi Social History Tobacco Use Types Packs/Day Years Used Date Smoking Tobacco: Never Assessed Comments Unknown Sex and Gender Information Value Date Recorded Sex Assigned at Female 12/06/2019 3:36 PM LEAD APPLIER Legal Sex Female 5:20 PM CDT Gender Identity Female 12/06/2019 3:36 PM LEAD APPLIER Sexual Orientation Straight 12/06/2019 3: 36 PM LEAD APPLIER documented as of this encounter Plan of Treatment Not on file documented as of this encounter Visit Diagnoses Not on filedocumented in this encounter Care Teams Field Automobile Adjuster Relationship Specialty Start Date End Date Dane [...] - General 06/27/15 09/23/15 Asa Mcnamara MD [facility]. [facility] [address] [place] [address] [place] Storeroom Attendant CARDIOVASCULAR DISEASE 05/15/16 documented as of this encounter
--- OUTSIDE RECORDS SUMMARY | 2024-11-12 04:50 | XMS_ITS | Encounter Summary ---
Author Organization [facility] Address [address] [facility]. [place], [place] [address] [place] [address] Care Team Providers Care Remote Advisor Name Role Phone Dane Sullivan DO Primary Care Provider + [phone] Asa Mcnamara MD Unavailable [phone] Deisi Andrews MD Primary Care Provider [phone] Md Generic Vivi HUYNH Primary Care Provider Unavailable Dane Sullivan DO Primary Care Provider + [phone] Dane Sullivan DO Primary Care Provider + [phone] Dane Sullivan DO Primary Care Provider + [phone] Dane Sullivan DO Primary Care Provider + [phone] Dane Sullivan DO Primary Care Provider + [phone] Md Generic Vivi HUYNH Primary Care Provider Unavailable Deisi Andrews MD Primary Care Provider [phone] Encounter Details Date Type Department Care Team (Latest Contact Info) Description 08/15/2015 Abstract [facility] Medical Group Social History Tobacco Use Types Packs/Day Years Used Date Smoking Tobacco: Never Assessed Comments Unknown Sex and Gender Information Value Date Recorded Sex Assigned at Female 12/06/2019 3:36 PM B2B APPOINTMENT SETTER Legal Sex Female 5:20 PM CDT Gender Identity Female 12/06/2019 3:36 PM B2B APPOINTMENT SETTER Sexual Orientation Straight 12/06/2019 3: 36 PM B2B APPOINTMENT SETTER documented as of this encounter Plan of Treatment Not on file documented as of this encounter Visit Diagnoses Not on filedocumented in this encounter Care Teams Remote Advisor Relationship Specialty Start Date End Date Dane Sullivan DO PCP - General FAMILY PRACTICE 05/15/16 02/11/17 Deisi Andrews MD [address] [place] [address] PCP - General FAMILY PRACTICE 02/13/17 03/10/17 [...] General 06/27/15 09/23/15 Deisi Andrews MD [address] [place] [address] PCP - General FAMILY PRACTICE 06/15/17 10/14/19 Asa Mcnamara MD [facility]. [facility] [address] [place] [address] [place] Software Applications Designer CARDIOVASCULAR DISEASE 05/15/16 documented as of this encounter
--- OUTSIDE RECORDS SUMMARY | 2024-11-12 04:50 | XMS_ITS | Encounter Summary ---
Author Organization [facility] Address [address] [facility]. [place], [place] [address] [place] [address] Care Team Providers Care Picking Table Worker Name Role Phone Dane Sullivan DO Primary Care Provider + [phone] Asa Mcnamara MD Unavailable [phone] Deisi Andrews MD Primary Care Provider [phone] Md Generic Vivi HUYNH Primary Care Provider Unavailable Dane Sullivan DO Primary Care Provider + [phone] Dane Sullivan DO Primary Care Provider + [phone] Dane Sullivan DO Primary Care Provider + [phone] Dane Sullivan DO Primary Care Provider + [phone] Dane Sullivan DO Primary Care Provider + [phone] Md Generic Vivi HUYNH Primary Care Provider Unavailable Deisi Andrews MD Primary Care Provider [phone] Encounter Details Date Type Department Care Team (Latest Contact Info) Description 09/13/2015 Abstract [facility] Medical Group Social History Tobacco Use Types Packs/Day Years Used Date Smoking Tobacco: Never Assessed Comments Unknown Sex and Gender Information Value Date Recorded Sex Assigned at Female 12/06/2019 3:[address] SUPERVISOR Legal Sex Female 5:20 PM CDT Gender Identity Female 12/06/2019 3:[address] SUPERVISOR Sexual Orientation Straight 12/06/2019 3: [address] SUPERVISOR documented as of this encounter Plan of Treatment Not on file documented as of this encounter Visit Diagnoses Not on filedocumented in this encounter Care Teams Picking Table Worker Relationship Specialty Start Date End Date Dane Sullivan DO PCP - General FAMILY PRACTICE 05/15/16 02/11/17 Deisi Andrews MD [address] [place] [address] PCP - General FAMILY PRACTICE 02/13/17 03/10/17 [...] General 06/27/15 09/23/15 Deisi Andrews MD [address] [place] [address] PCP - General FAMILY PRACTICE 06/15/17 10/14/19 Asa Mcnamara MD Three [facility]. [facility] [address] [place] [address] [place] Radiologic Technician CARDIOVASCULAR DISEASE 05/15/16 documented as of this encounter
--- OUTSIDE RECORDS SUMMARY | 2024-11-12 04:50 | XMS_ITS | Encounter Summary ---
Author Organization [facility] Address [address] [facility]. [place], [place] [address] [place] [address] Care Team Providers Care Disability Program Navigator Name Role Phone Dane Sullivan DO Primary Care Provider + [phone] Asa Mcnamara MD Unavailable [phone] Deisi Andrews MD Primary Care Provider [phone] Md Generic Vivi HUYNH Primary Care Provider Unavailable Dane Sullivan DO Primary Care Provider + [phone] Dane Sullivan DO Primary Care Provider + [phone] Dane Sullivan DO Primary Care Provider + [phone] Dane Sullivan DO Primary Care Provider + [phone] Dane Sullivan DO Primary Care Provider + [phone] Md Generic Vivi HUYNH Primary Care Provider Unavailable Deisi Andrews MD Primary Care Provider +[phone] Encounter Details Date Type Department Care Team (Latest Contact Info) Description 06/24/2015 Abstract [facility] Medical Group Social History Tobacco Use Types Packs/Day Years Used Date Smoking Tobacco: Never Assessed Comments Unknown Sex and Gender Information Value Date Recorded Sex Assigned at Female 12/06/2019 3:36 PM STREETS AND BUILDINGS DECORATOR Legal Sex Female 5:20 PM CDT Gender Identity Female 12/06/2019 3:36 PM STREETS AND BUILDINGS DECORATOR Sexual Orientation Straight 12/06/2019 3: 36 PM STREETS AND BUILDINGS DECORATOR documented as of this encounter Plan of Treatment Not on file documented as of this encounter Visit Diagnoses Not on filedocumented in this encounter Care Teams Disability Program Navigator Relationship Specialty Start Date End Date Dane Sullivan DO PCP - General FAMILY PRACTICE 05/15/16 02/11/17 Deisi Andrews MD [address] [place] [address] PCP - General FAMILY PRACTICE 02/13/17 03/10/17 [...] General 06/27/15 09/23/15 Deisi Andrews MD [address] [place] [address] PCP - General FAMILY PRACTICE 06/15/17 10/14/19 Asa Mcnamara MD Three [facility]. [facility] [address] [place] [address] [place] Civil Design Specialist CARDIOVASCULAR DISEASE 05/15/16 documented as of this encounter
--- OUTSIDE RECORDS SUMMARY | 2024-11-12 04:50 | XMS_ITS | Encounter Summary ---
Author Organization [facility] Address [address] [facility] [place] [address] [place] [address] Care Team Providers Care Strategic Partnership Representative Name Role Phone Dane Sullivan DO Primary Care Provider + [phone] Asa Mcnamara MD Unavailable [phone] Deisi Andrews MD Primary Care Provider [phone] Md Generic Conversion Primary Care Provider Unavailable Dane Sullivan DO Primary Care Provider + [phone] Dane Sullivan DO Primary Care Provider + [phone] Dane Sullivan DO Primary Care Provider + [phone] Dane Sullivan DO Primary Care Provider + [phone] Dane Sullivan DO Primary Care Provider + [phone] Md Generic Vivi HUYNH Primary Care Provider Unavailable Deisi Andrews MD Primary Care Provider [phone] Encounter Details Date Type Department Care Team (Late st Contact Info) Description 04/22/2015 Abstract [facility] Family Medicine - [address] [phone] Dane Sullivan DO [address] [phone] Social History Tobacco Use Types Packs/Day Years Used Date Smoking Tobacco: Never Assessed Comments Unknown Sex and Gender Information Value Date Recorded Sex Assigned at Female 12/06/2019 3:36 PM PHOTOLETTERING 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 Legal Sex Female 5:20 PM CDT Gender Identity Female 12/06/2019 3:36 PM PHOTOLETTERING 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 Sexual Orientation Straight 12/06/2019 3: 36 PM PHOTOLETTERING 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 documented as of this encounter Last Filed Vital Signs Vital Sign Reading Time Taken Comments Blood Pressure 130/90 04/22/2015 1:10 PM CDT Pulse 91 04/22/2015 1:10 PM CDT Temperature - - Respiratory Rate - - Oxygen Saturation - - Inhaled Oxygen Concentration - - Weight 97.1 kg (214 lb) 04/22/2015 1:10 PM CDT Height 157.5 cm (5' 2 ) 04/22/2015 1:10 PM CDT Body Mass Index 39.14 04/22/2015 1:10 PM CDT documented in this encounter Progress Notes * Dane Sullivan, DO - 04/22/2015 1:00 PM CDT History of Present Illness 54yo Wf new pt eval Previous PCM Dr Jarrod Coy visit last week Quit smoking March 18 Pt has numerous medical problems In Nov, pt had MIRANDA, constant, worst MIRANDA ever, went to ER and with CVA in Nov 2014 Currently on aspirin 325mg Pt neurology is Dr Barnes, will be seeing him 1 week Pt also has hx of vascular pathology She had left 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 neck Sees Dr Gutierrez, no further f/u with him for another 6 mos DM2, just dx no longer drinking soda unknown A1C, but it was high on metfomin bid Pt has COPD/Asthma on qvar daily Ventolin only as needed, depends on allergies also on singulair Anxiety Sees psychiatry Dr Concepcion, sees him once a month to once every 3 months She gets xanax, ambien and prozac she denies any SI or HI She has hx of LBP located on left side of low back Had MRI Last year, was told she had arthritis she takes hydrocodone daily 3 times a day used to see PM but no longer has HLD on pravastatin 40mg for this HTN on losartan states BP typically is controlled last blood work was 3 weeks ago, states 19 tubes were drawn Review of systems General: denies any fevers, chills. Gastrointestinal: Patient denies any nausea, vomiting, diarrhea or constipation Genitourinary: Patient denies dysuria, hematuria, urgency or frequency Cardiovascular: Patient denies Chest pain. She is chronically SOB from her COPD Mental Health: anxiety as above All other ROS negative unless specified above Physical Exam General: Well-developed, well-nourished, in no [...] No hepatomegaly or splenomegaly noted on examination. Back: no bony TTP No hamstring tightness Neg SLR Extremities: No clubbing, cyanosis, or edema noted. Pulses 2+. Neuro: grossly intact. Psych: Normal mood, normal affect Past Medical History 1. History of arthritis [...] ?? Current every day smoker (305.1) (F17.200) Current Meds 1. Ambien 10 MG Oral Tablet; Therapy: (Recorded:22Apr2015) to Recorded Dispense: 0 Days ; #: Sufficient TABS; Refill: 0; ADAM = N; Record; Last Updated By: Jennifer Wayne; 04/22/2015 1:10:47 PM 2. Aspirin 325 MG Oral Tablet; Therapy: (Recorded:22Apr2015) to Recorded Dispense: 0 Days ; #: Sufficient TABS; Refill: 0; ADAM = N; Record; Last Updated By: Jennifer Wayne; 04/22/2015 1:10:47 PM 3. Hydrocodone-Acetaminophen 10-325 MG Oral Tablet; Therapy: (Recorded:22Apr2015) to Recorded Dispense: 0 Days ; #: Sufficient TABS; Refill: 0; ADAM = N; Record; Last Updated By: Jennifer Wayne; 04/22/2015 1:10:47 PM 4. Losartan Potassium 100 MG Oral Tablet; Therapy: (Recorded:22Apr2015) to Recorded Dispense: 0 Days ; #: Sufficient TABS; Refill: 0; ADAM = N; Record; Last Updated By: Jennifer Wayne; 04/22/2015 1:10:47 PM 5. MetFORMIN HCl - 500 MG Oral Tablet; Therapy: (Recorded:22Apr2015) to Recorded Dispense: 0 Days ; #: Sufficient TABS; Refill: 0; ADAM = N; Record; Last Updated By: Jennifer Wayne; 04/22/2015 1:10:47 PM 6. PriLOSEC 20 MG Oral Capsule Delayed Release; Therapy: (Recorded:22Apr2015) to Recorded Dispense: 0 Days ; #: Sufficient CPDR; Refill: 0; ADAM = N; Record; Last Updated By: Jennifer Wayne; 04/22/2015 1:10:47 PM 7. PROzac 40 MG Oral Capsule; Therapy: (Recorded:22Apr2015) to Recorded Dispense: 0 Days ; #: Sufficient CAPS; Refill: 0; ADAM = N; Record; Last Updated By: Jennifer Wayne; 04/22/2015 1:10:47 PM 8. Qvar 40 MCG/ACT Inhalation Aerosol Solution; Therapy: (Recorded:22Apr2015) to Recorded Dispense: 0 Days ; #: Sufficient AERS; Refill: 0; ADAM = N; Record; Last Updated By: Jennifer Wayne; 04/22/2015 1:10:47 PM 9. Singulair 10 MG Oral Tablet; Therapy: (Recorded:22Apr2015) to Recorded Dispense: 0 Days ; #: Sufficient TABS; Refill: 0; ADAM = N; Record; Last Updated By: Jennifer Wayne; 04/22/2015 1:10:47 PM 10. Ventolin 90 MCG/ACT AERS; Therapy: (Recorded:22Apr2015) to Recorded Dispense: 0 Days ; #: Sufficient AERS; Refill: 0; ADAM = N; Record; Last Updated By: Jennifer Wayne; 04/22/2015 1:10:47 PM 11. Xanax 1 MG Oral Tablet; Therapy: (Recorded:22Apr2015) to Recorded Dispense: 0 Days ; #: Sufficient TABS; Refill: 0; ADAM = N; Record; Last Updated By: Jennifer Wayne; 04/22/2015 1:10:47 PM Allergies 1. Halcion Recorded By: Jennifer Wayne; 04/22/2015 1:02:20 PM 2. Haldol Recorded By: Jennifer Wayne; 04/22/2015 1:02:20 PM 3. Penicillins Recorded By: Jennifer Wayne; 04/22/2015 1:02:20 PM 4. Risperidone and Related Recorded By: Jennifer Wayne; 04/22/2015 1:02:20 PM Vitals Recorded: 22Apr2015 01:10PM Heart Rate 91 Respiration 20 Systolic 130 Diastolic 90 Height 5 ft 2 in Weight 214 lb BMI Calculated 39.14 BSA Calculated 1.97 Assessment 1. Hypertension (401.9) (I10) 2. History of CVA (cerebrovascular accident) (V12.54) (Z86.73) 3. Hyperlipidemia (272.4) (E78.5) 4. COPD (chronic obstructive pulmonary disease) (496) (J44.9) 5. Chronic pain (338.29) (G89.29) 6. Anxiety (300.00) (F41.9) Discussion/Summary HTN controlled today cont current meds HLD on pravastatin awaiting labs that were recently done Chronic pain on hydrocodone benign exam today suspect some dependency given hx of using xanax, hydrocodone, ambien will not refill any meds until review of PCM notes will need to review MRI Pt verb understanding COPD stable cont meds only uses albuterol a few times a month anxiety stable cont plan per psychiatry DM2 will await A1C results before I can titrate medications new pt eval today requesting Dr Garay notes Signatures Electronically signed by : Dane Sullivan D.O.; Apr 22 2015 1:40PM PHOTOLETTERING 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 (Author) documented in this encounter Plan of Treatment Not on file documented as of this encounter Visit Diagnoses Not on filedocumented in this encounter Care Teams Strategic Partnership Representative Relationship Specialty Start Date End Date Dane Sullivan DO PCP - General FAMILY PRACTICE 05/15/16 02/11/17 Deisi Andrews MD [address] [place] [address] [place] [address] PCP - General FAMILY PRACTICE 02/13/17 03/10/17 [...] - General 06/27/15 09/23/15 Deisi Andrews MD [address] [place] [address] [place] [address] PCP - General FAMILY PRACTICE 06/15/17 10/14/19 Asa Mcnamara MD [facility] [address] [place] [address] [place] [employer] Director CARDIOVASCULAR DISEASE 05/15/16 documented as of this encounter
--- OUTSIDE RECORDS SUMMARY | 2024-11-12 04:50 | XMS_ITS | Encounter Summary ---
Author Organization [facility] Address [address] [place] [address] [place] [address] Care Team Providers Care Geologist Name Role Phone Dane Sullivan DO Primary Care Provider + [phone] Asa Mcnamara MD Unavailable [phone] Deisi Andrews MD Primary Care Provider [phone] Md Generic Conversion Primary Care Provider Unavailable Dane Sullivan DO Primary Care Provider + [phone] Dane Sullivan DO Primary Care Provider + [phone] Dane Sullivan DO Primary Care Provider + [phone] Dane Sullivan DO Primary Care Provider + [phone] Dane Sullivan DO Primary Care Provider + [phone] Md Generic Vivi HUYNH Primary Care Provider Unavailable Deisi Andrews MD Primary Care Provider [phone] Encounter Details Date Type Department Care Team (Late st Contact Info) Description 06/17/2015 Abstract [facility] Medical [facility] Family Medicine - [address] [phone] Dane Sullivan DO [address] [phone] Social History Tobacco Use Types Packs/Day Years Used Date Smoking Tobacco: Never Assessed Comments Unknown Sex and Gender Information Value Date Recorded Sex Assigned at Female 12/06/2019 3:36 PM DESIGN MAKER Legal Sex Female 5:20 PM CDT Gender Identity Female 12/06/2019 3:36 PM DESIGN MAKER Sexual Orientation Straight 12/06/2019 3: 36 PM DESIGN MAKER documented as of this encounter Last Filed Vital Signs Vital Sign Reading Time Taken Comments Blood Pressure 136/81 06/17/2015 1:07 PM CDT Pulse 97 06/17/2015 1:07 PM CDT Temperature - - Respiratory Rate - - Oxygen Saturation - - Inhaled Oxygen Concentration - - Weight 94.6 kg (208 lb 8 oz) 06/17/2015 1:07 PM CDT Height - - Body Mass Index 38.14 04/22/2015 1:10 PM CDT documented in this encounter Progress Notes * Dane Sullivan, - 06/17/2015 1:15 PM CDT History of Present Illness Upper Respiratory Infection (Brief): The patient is being seen for an initial evaluation of this episode of and started 10 days ago an upper respiratory infection. Symptoms: nasal congestion, runny nose, sore throat, scratchy throat and dry cough, but no sneezing, no facial pressure, no ear pain and no hoarseness. Symptom Cluster Details: She reports the symptoms are unchanged. Associated Symptoms: no fever, no chills, no nausea, no vomiting and no diarrhea. Current Treatment: She is currently not being treated for this problem. Pertinent History: Has allergy to PCN, does not tolerate azithromycin. Active Problems 1. Anxiety (300.00) (F41.9) 2. Chronic pain (338.29) (G89.29) 3. COPD (chronic obstructive pulmonary disease) (496) (J44.9) 4. History of CVA (cerebrovascular accident) (V12.54) (Z86.73) 5. Hyperlipidemia (272.4) (E78.5) 6. Hypertension (401.9) (I10) Past Medical History 1. History of arthritis [...] PM 3. Hydrocodone-Acetaminophen 10-325 MG Oral Tablet; TAKE 1 TABLET TID NEEDED FOR PAIN; Last Rx:[id number] Ordered Rx By: Caesar Barrera; Dispense: 0 Days ; #:70 Tablet; Refill: 0; For: Chronic pain; ADAM = N; Print Rx; Last Updated By: Starr Melendez; 06/04/2015 9:09:45 AM 4. Losartan Potassium 100 MG Oral Tablet; TAKE 1 TABLET DAILY Requested for: [id number]; Last Rx:[id number] Ordered Rx By: Dane Sullivan; Dispense: 90 Days ; #:90 Tablet; Refill: 1; For: Hypertension; ADAM = N; Verified Transmission to [facility]; Last Updated By: Stepsss; 05/16/2015 1:41:31 PM 5. MetFORMIN HCl - 500 MG Oral Tablet; TAKE 1 TABLET TWICE DAILY WITH MEALS Requested for: [id number]; Last Rx:[id number] Ordered Rx By: Dane Sullivan; Dispense: 90 Days ; #:180 Tablet; Refill: 1; For: Health Maintenance; ADAM =N; Verified Transmission to [facility]; Last Updated By: [employer] 05/16/2015 1:41:30 PM 6. Pravastatin Sodium 40 MG Oral Tablet; Take 1 tablet daily; Therapy: [id number] to (Last Rx:[id number]) Requested for: [id number] Ordered Rx By: Dane Sullivan; Dispense: 0 Days ; #:90 Tablet; Refill: 1; For: Hyperlipidemia; ADAM = N; Verified Transmission to [facility]; Last Updated By: Stepsss; 05/16/2015 1:41:31PM 7. PriLOSEC 20 MG Oral Capsule Delayed Release; Therapy: (Recorded:22Apr2015) to Recorded Dispense: 0 Days ; #: Sufficient CPDR; Refill: 0; ADAM = N; Record; Last Updated By: Jennifer Wayne; 04/22/2015 1:10:47 PM 8. PROzac 40 MG Oral Capsule; Therapy: (Recorded:22Apr2015) to Recorded Dispense: 0 Days ; #: Sufficient CAPS; Refill: 0; ADAM = N; Record; Last Updated By: Jennifer Wayne; 04/22/2015 1:10:47 PM 9. Qvar 40 MCG/ACT Inhalation Aerosol Solution; Therapy: (Recorded:22Apr2015) to Recorded Dispense: 0 Days ; #: Sufficient AERS; Refill: 0; ADAM = N; Record; Last Updated By: Jennifer Wayne; 04/22/2015 1:10:47 PM 10. Singulair 10 MG Oral Tablet; Therapy: (Recorded:22Apr2015) to Recorded Dispense: 0 Days ; #: Sufficient TABS; Refill: 0; ADAM = N; Record; Last Updated By: Jennifer Wayne; 04/22/2015 1:10:47 PM 11. Ventolin 90 MCG/ACT AERS; Therapy: (Recorded:22Apr2015) to Recorded Dispense: 0 Days ; #: Sufficient AERS; Refill: 0; ADAM = N; Record; Last Updated By: Jennifer Wayne; 04/22/2015 1:10:47 PM 12. Xanax 1 MG Oral Tablet; Therapy: (Recorded:22Apr2015) [...] Jennifer Wayne; 04/22/2015 1:02:20 PM Vitals Recorded: [id number] 01:07PM Temperature 98.3 F Heart Rate 97 Respiration 20 Systolic 136 Diastolic 81 O2 Saturation 94 Weight 208 lb 8 oz BMI Calculated 38.14 BSA Calculated 1.95 Physical Exam Constitutional General appearance: No acute distress, well appearing and well nourished. Ears, Nose, Mouth, and Throat Otoscopic examination: Abnormal. Tube left ear. Oropharynx: Normal with no erythema, edema, exudate or lesions. Pulmonary Respiratory effort: No increased work of breathing or signs of respiratory distress. Auscultation of lungs: Clear to auscultation. Cardiovascular Auscultation of heart: Normal rate and rhythm, normal S1 and S2, without murmurs. Abdomen Abdomen: Non-tender, no masses. Psychiatric Mood and affect: Normal. Assessment 1. Upper respiratory infection (465.9) (J06.9) 2. Smoking (305.1) (Z72.0) Plan Upper respiratory infection 1. Nicotine 21-14-7 MG/24HR Transdermal Kit; USE DIRECTED Rx By: Dane Sullivan; Dispense: 0 Days ; #:1 Kit; Refill: 0; For: Upper respiratory infection; ADAM = N; Sent To: [facility] 2. Sulfamethoxazole-TMP DS 800-160 MG Oral Tablet; TAKE 1 TABLET TWICE DAILY Rx By: Dane Sullivan; Dispense: 5 Days ; #:10 Tablet; Refill: 0; For: Upper respiratory infection; ADAM = N; [facility] Discussion/Summary Given duration of symptoms, will start on antibiotic therapy She also has hx of COPD and is a smoker, and this contributes to URI as well ADvised on quitting smoking, she states she is willing to use the nicotine patch will place order for this RTC if URI not better 7-10 days, sooner if symptoms worsen Signatures Electronically signed by : Dane Sullivan D.O.; Jun 17 2015 1:25PM DESIGN MAKER (Author) documented in this encounter Plan of Treatment Not on file documented as of this encounter Visit Diagnoses Not on filedocumented in this encounter Care Teams Geologist Relationship Specialty Start Date End Date Dane Sullivan DO PCP - General FAMILY PRACTICE 05/15/16 02/11/17 Deisi Andrews MD [address] [place] [address] PCP - General FAMILY PRACTICE 02/13/17 03/10/17 [...] - General 06/27/15 09/23/15 Deisi Andrews MD [address] [place] [address] [place] [address] PCP - General FAMILY PRACTICE 06/15/17 10/14/19 Asa Mcnamara MD [facility] [address] [place] [address] [place] Egg Worker CARDIOVASCULAR DISEASE 05/15/16 documented as of this encounter
--- OUTSIDE RECORDS SUMMARY | 2024-11-12 05:06 | XMS_ITS | Encounter Summary ---
Author Organization [facility] Address [address] [place] [address] Phone Care Team Providers Care Senior Mechanical Designer Name Role Phone Olu Nieto APRN, MEDICAL RECORDS CLERK Primary Care Provider Encounter Details Date Type Department Care Team (Late st Contact Info) Description 09/02/2020 Telephone [facility] - Gastroenterology [facility] [address] [place] [address] Martir Ventura, DO 3 [facility] [address] [place] [address] Social History Tobacco Use Types Packs/Day Years Used Date Smoking Tobacco: Former Cigarettes 2 40 0 03/22/1979 - 03/22/2019 Smokeless Tobacco: Never Alcohol Use Standard Drinks/Week Comments Never 0 (1 standard drink = 0.6 oz pur e alcohol) AUDIT-C Answer Date Recorded Frequency of Alcohol Consumption Never 05/25/2019 Average Number of Drinks Not on file 019 Frequency of Binge Drinking Not on file 05/15 Comments Unknown Sex and Gender Information Value Date Recorded Sex Assigned at Not on file Legal Sex Female 9:09 PM CDT Gender Identity Not on file Sexual Orientation Not on file documented as of this encounter Miscellaneous Notes * Telephone Encounter - Araceli Kirk RMA - 09/02/2020 2:38 PM CDT Pt called wanting records faxed to DR Gutierrez, record release is scanned in to the chart records faxed 2:40pm 09/02/2020 documented in this encounter Plan of Treatment Not on file documented as of this encounter Visit Diagnoses Not on filedocumented in this encounter Care Teams Senior Mechanical Designer Relationship Specialty Start Date End Date Olu Nieto, MEI, MEDICAL RECORDS CLERK [address] [place] [address] PCP - General Certified Nurse Practitioner 11/02/18 documented as of this encounter
--- OUTSIDE RECORDS SUMMARY | 2024-11-12 05:06 | XMS_ITS | Encounter Summary ---
Author Organization [facility] Address [address] [place] [address] Phone Care Team Providers Care Electricians Top Helper Name Role Phone Olu Nieto APRN, LUBE ATTENDANT Primary Care Provider Encounter Details Date Type Department Care Team (Late st Contact Info) Description 04/28/2021 Telephone [facility] - Gastroenterology [facility] [address] [place] [address] Martir Ventura, DO [address] [address] Social History Tobacco Use Types Packs/Day Years [...] encounter Miscellaneous Notes * Telephone Encounter - Christina Zamudio - 04/28/2021 1:[address] Ventura's detention letter was returned, call pt to update address and mailbox was unable to take messages. documented in this encounter Plan of Treatment Not on file documented as of this encounter Visit Diagnoses Not on filedocumented in this encounter Care Teams Electricians Top Helper Relationship Specialty Start Date End Date Olu Nieto, INTERNAL CORROSION SPECIALIST, LUBE ATTENDANT [address] [place] [address] PCP - General Certified Nurse Practitioner 11/02/18 documented as of this encounter
--- OUTSIDE RECORDS SUMMARY | 2024-11-12 05:06 | XMS_ITS | Encounter Summary ---
Author Organization [facility] Address [address] [place] [address] Care Team Providers Care Store Sales Leader Name Role Phone Olu Nieto APRN, CNP Primary Care Provider Encounter Details Date Type Department Care Team (Late st Contact Info) Description 07/02/2021 10:45 AM CDT Rapid Evaluation [facility] Community Testing [facility] [address] [place] [address] Social History Tobacco Use Types Packs/Day Years [...] on filedocumented in this encounter Care Teams Store Sales Leader Relationship Specialty Start Date End Date Olu Nieto APRN, CNP [address] [place] [address] [place] [address] PCP - General Certified Nurse Practitioner 11/02/18 documented as of this encounter
--- OUTSIDE RECORDS SUMMARY | 2024-11-12 05:06 | XMS_ITS | Encounter Summary ---
Author Organization [facility] Address [address] [place] [address] Care Team Providers Care Realtime Reporter Name Role Phone Olu Nieto APRN, AQUATIC PERFORMER Primary Care Provider Encounter Details Date Type Department Care Team (Late st Contact Info) Description 07/02/2021 Lab Requisition [facility] of Public Health Community Testing [facility] [address] [place], [place] [id number] oYvany Sheriff MD [address] [place] [address] [place] [address] Social History Tobacco Use Types Packs/Day Years [...] Procedure Name Priority Date/Time Associated Diagnosis Comments SARS-COV-2 PCR [facility] ONLY Routine 07/02/2021 10:40 AM CDT documented in this encounter Visit Diagnoses Not on filedocumented in this encounter Care Teams Realtime Reporter Relationship Specialty Start Date End Date Olu Nieto APRN, AQUATIC PERFORMER [address] [place] [address] [place] [address] PCP - General Certified Nurse Practitioner 11/02/18 documented as of this encounter
--- OUTSIDE RECORDS SUMMARY | 2024-11-12 05:06 | XMS_ITS | Clinical Summary ---
Author Organization [facility] Address [address], [facility] [address] [place] [address] Phone Care Team Providers Care Gambling Monitor Name Role Phone Olu Nieto APRN, HYDRO PLANT OPERATOR Primary Care Provider Allergies Active Allergy Reactions Criticality Noted Date Comments Haloperidol Lactate Other (see Comments) 2012 Penicillins Rash 05/25/2019 Risperidone Other (see Comments) 08/05/2018 Reported her face getting swollen Facial drawn up/tightening Triazolam Other (see Comments) 07/01/2016 Drawn up face Medications omeprazole (PRILOSEC) 40 MG CAPSULE DELAYED RELEASE Take 1 Cap by mouth daily. 90 Cap 3 9 Active losartan (COZAAR) 25 MG Tablet Take 100 mg by mouth daily. Active amLODIPine (NORVASC) 5 MG Tablet Take 5 mg by mouth daily. Active metoprolol tartrate (LOPRESSOR) 25 MG Tablet Take 25 mg by mouth 2 times daily. Active isosorbide dinitrate (ISORDIL) 20 MG Tablet Take 20 mg by mouth 3 times daily. Active METFORMIN HCL PO Take 500 mg by mouth 2 times daily. Active ALPRAZolam (XANAX) 1 MG Tablet Take 1 mg by mouth 3 times daily as needed. Active Fluticasone Propionate (FLONASE NA) by Nasal route. A ctive montelukast (SINGULAIR) 10 MG Tablet Take 10 mg by mouth every evening. Active FLUoxetine (PROZAC) 40 MG Capsule Take 40 mg by mouth daily. Active fexofenadine (SAMANTHA) 180 MG Tablet Take 180 mg by mouth daily. Active nicotine (NICODERM CQ) 7 MG/24HR PATCH 24 HR 1 Patch by Transdermal route every 24 hours. Active Aspirin 81 MG Tablet Take 81 mg by mouth daily. Active Family History Medical History Relation Name Comments Diabetes Father Emphysema Father Lung Cancer Father Heart Disease Mother Hypertension Mother Other-comment Mother PUD Cancer Sister Throat and blad sapna. Heart Disease Sister Hypertension Sister Relation Name Status Comments Father Mother Sister Social History Tobacco Use Types Packs/Day Years Used Date Smoking Tobacco: Former Cigarettes 2 40 0 03/22/1979 - 03/22/2019 Smokeless Tobacco: Never Tobacco Cessation:Counseling Given: No Alcohol Use Standard Drinks/Week Comments Never 0 [...] Reading Time Taken Comments Blood Pressure 128/80 05/25/2019 11:50 AM CDT Pulse 69 05/25/2019 11:50 AM CDT Temperature 36.7 ??C (98.1 ??F) 05/25/2019 11:50 AM C DT Respiratory Rate - - Oxygen Saturation 96% 05/25/2019 11:50 AM CDT Inhaled Oxygen Concentration - - Weight 94.4 kg (208 lb 3.2 oz) 05/25/2019 11:50 AM CDT Height - - Body Mass Index - - Plan of Treatment Health Maintenance Due Date Last Done Comments Hepatitis C Virus (HCV) Screening 1960 Pap Smear 1982 Cervical Cancer Screening (CCS) 1991 HPV/Cotest 1991 Cologuard 2011 Immunochemical Fecal Occult Blood 2011 Mammogram 2011 Zoster Immunization (1 of 2) 2011 Pneumococcal Immunization (50+ years) (2 of 2 - PCV) 10/21/2017 10/21/2016 Colonoscopy 01/12/2024 01/12/2019, 05/17/2013 Colorectal Cancer Screening 01/12/2024 Influenza Immunization (#1) 07/16/202408/15, 09/22/2019, 07/27/2018, Additional history exists SARS-COV-2 Immunization ( season) 2024 03/13/2021, 02/17/2021, 02/06/2021 Respiratory Syncytial Virus (RSV) Immunization (Adult) (1 - 1-dose 75+ series) 2036 01/12/2019, 05/17/2013 Pneumococcal Immunization Combined Discontinued 10/21/2016 DTaP/Tdap/Td Immunization Discontinued 05/27/2021, TdaP Immunization Completed 05/27/2021, 01/31/2019 Hepatitis B Immunization Aged Out No longer eligible based on patient's age to complete this topic Meningococcal Immunization (ACWY) Aged Out No longer eligible based on patient's age to complete this topic Rotavirus Immunization Aged Out No lo nger eligible based on patient's age to complete this topic Procedures Procedure Name Priority Date/Time Associated Diagnosis Comments COLONOSCOPY Routine 01/12/2019 from Last 3 Months or Most Recently Relevant to Health Maintenance Results * COLONOSCOPY (01/12/2019) us Martir Ventura DO PROCEDURE/MINOR SURGICAL ORDERA BLES Final Result from Last 3 Months or Most Recently Relevant to Health Maintenance Insurance MEDICAID [employer] [address] [id number] Care Teams Gambling Monitor Relationship Specialty Start Date End Date Olu Nieto, COTTON BUYER, HYDRO PLANT OPERATOR [address] [place] [address] PCP - General Certified Nurse Practitioner 11/02/18
--- OUTSIDE RECORDS SUMMARY | 2024-11-12 05:07 | XMS_ITS | Encounter Summary ---
Author Organization [facility] Address [address] [place] [address] Phone Care Team Providers Care Medical Unit Secretary Name Role Phone lOu Nieto APRN, UI DESIGNER Primary Care Provider Encounter Details Date Type Department Care Team (Late st Contact Info) Description 07/02/2020 Telephone [facility] - Gastroenterology [facility] [address] [place] [address] Martir Ventura, DO 3 [facility] [address] [place] [address] Social History Tobacco Use Types Packs/Day Years [...] * Telephone Encounter - Christina Zamudio - 07/02/2020 12:45 PM CDT Pt wanted records faxed to new Gi provider, I did tell her she will have to sign a release. documented in this encounter Plan of Treatment Not on file documented as of this encounter Visit Diagnoses Not on filedocumented in this encounter Care Teams Medical Unit Secretary Relationship Specialty Start Date End Date Olu Nieto APRN, UI DESIGNER [address] [place] [address] PCP - General Certified Nurse Practitioner 11/02/18 documented as of this encounter
--- OUTSIDE RECORDS SUMMARY | 2024-11-12 05:08 | XMS_ITS | Encounter Summary ---
Author Organization [facility] Address [address] [place] [address] Care Team Providers Care Low Pressure Firer Name Role Phone Deisi Andrews MD Primary Care Provider + Reason for Referral * Consultation (Routine) - Closed Specialty Diagnoses / Procedures Referred By Contac t Referred To Contact Sleep Medicine Diagnoses Paroxysmal atrial fibrillation (CMS/HCC) (HCC) Ramakrishna Edmonds MD [address] [address] Phone: tel: fax: [facility] Sleep Medicine at [address] [place] [address] Phone: tel: fax: Referral ID Status Reason Start Date Expiration Date V isits Requested Visits Authorized [id number] Closed Specialty Services Required 12/16/2023 01/14/2025 1 1 Question Answer Please select the performing region: [facility] [[id number]] Please select the performing department: [facility]EPMED [facility] [[id number]] # of visits: 1 CTOR OF INTERCOLLEGIATE ATHLETICS Reason for Visit * Reason Comments Atrial Fibrillation New Patient Encounter Details Date Type Department Care Team (Late st Contact Info) Description 12/16/2023 8:30 AM DIRECTOR OF INTERCOLLEGIATE ATHLETICS Office Visit [facility] Cardiology at [address] [place] [address] Ramakrishna Edmonds MD [address] [facility] [address] [address] Paroxysmal atrial fibrillation (CMS/HCC) (HCC) (Primary Dx); Anticoagulation management encounter; Encounter for monitoring sotalol therapy Social History Tobacco Use Types Packs/Day Years Used Date Smoking Tobacco: Every Day Cigarettes 0.8 40 Tobacco Cessation:Ready to Q uit: Not Asked; Counseling Given: Not Answered Social Connection and Isolat ion Panel [NHANES] Answer Date Recorded In a typical week, how many times do you talk on the phone with family, friends, or neighbors? More than three times a week 04/14/2023 How often do you get togethe r with friends or relatives? More than three times a week 04/14/2023 How often do you attend chur or restorationism services? 1 to 4 times per year 04/14/2023 Do you belong to any clubs o r organizations such as catholic groups, unions, fraternal or athletic groups, or school groups? No 04/14/2023 How often do you attend meet ings of the clubs or organizations you belong to? Never 04/14/2023 Are you , , di vorced, , never , or living with a partner? Never 04/14/2023 AUDIT-C Answer Date Recorded Q1: How often do you have a drink containing alcohol? Never 04/13/2023 Q2: How many drinks containi ng alcohol do you have on a typical day when you are drinking? Patient does not drink Q3: How often do you have si x or more drinks on one occasion? Never 04/13/2023 Overall Financial Resource Strain (CARDIA) Answe r Date Recorded How hard is it for you to pa y for the very basics like food, housing, medical care, and heating? Not hard at all 04/14/2023 Hunger Vital Sign Answer Date Recorded Within the past 12 months, y ou worried that your food would run out before you got the money to buy more. Never true 04/14/20 23 Within the past 12 months, t he food you bought just didn't last and you didn't have money to get more. Never true 04/14/2023 PRAPARE - Transportation Answer Date Re corded In the past 12 months, has l ack of transportation kept you from medical appointments or from getting medications? No 03/17 In the past 12 months, has l ack of transportation kept you from meetings, work, or from getting things needed for daily living? No 04/14/2023 Housing Stability Vital Sign Answer Murphy e Recorded In the last 12 months, was t here a time when you were not able to pay the mortgage or rent on time? No 04/14/2023 In the last 12 months, how many places have you lived? 1 04/14/2023 In the last 12 months, was t here a time when you did not have a steady place to sleep or slept in a [place] facility (including now)? No 04/14/2023 Personal Safety Answer Date Recorded Have you ever been in or are you currently in a harmful physical or emotional relationship or is someone making you feel afraid or unsafe? Denies 04/13/2023 Comments Unknown Sex and Gender Information Value Date Recorded Sex Assigned at Not on file Legal Sex Female 7:48 PM DIRECTOR OF INTERCOLLEGIATE ATHLETICS Gender Identity Not on file Sexual Orientation Not on file documented as of this encounter Last Filed Vital Signs Vital Sign Reading Time Taken Comments Blood Pressure 120/82 12/16/2023 8:10 AM DIRECTOR OF INTERCOLLEGIATE ATHLETICS Lg Adult Cuff Pulse 80 12/16/2023 8:10 AM DIRECTOR OF INTERCOLLEGIATE ATHLETICS Temperature - - Respiratory Rate 16 12/16/2023 8:10 AM DIRECTOR OF INTERCOLLEGIATE ATHLETICS Oxygen Saturation - - Inhaled Oxygen Concentration - - Weight 81.6 kg (180 lb) 12/16/2023 8:10 AM DIRECTOR OF INTERCOLLEGIATE ATHLETICS Height 160 cm (5' 3 ) 12/16/2023 8:10 AM DIRECTOR OF INTERCOLLEGIATE ATHLETICS Body Mass Index 31.89 12/16/2023 8:10 AM DIRECTOR OF INTERCOLLEGIATE ATHLETICS documented in this encounter Progress Notes * Ramakrishna Edmonds MD - 12/16/2023 8:30 AM CST Consult Note - Cardiac Electrophysiology Patient Name: Rody Zaidi Date of : 1960 Primary Physician: Deisi Andrews MD Referring Physician: Maddy Cummings NP, WGeneva Santoyo MD I had the pleasure of seeing Rody Zaidi in consultation at the [facility]- Cardiology at [place] [facility]. I have reviewed the pertinent data originating outside our institution and outside my specialty within our institution and summarized the pertinent information below. As you well know, she is a 62 y.o. female with the following arrhythmia-specific history: 1. Paroxysmal atrial fibrillation Admitted fall 2022 where she was admitted for sepsis secondary C diff. She also noted to have atrial fibrillation with RVR and placed on anticoagulation at that time. Patient again hospitalized prior to 2023 where she was noted to be in atrial fibrillation with RVR and placed on sotalol at that time Noted to be in atrial fibrillation during office visit 11/18/2023 Maintained on sotalol 120 mg twice daily and Eliquis 5 mg twice daily Pertinent history: Peripheral vascular disease, diabetes type 2, COPD, hypertension, CVA, bladder cancer. Patient states her main symptoms with atrial fibrillation are fatigue, restlessness, tachy palpitations as well as slight chest pain. She states since the beginning of November she has not had any more episodes of atrial fibrillation. She states she is compliant with her Eliquis 5 mg twice daily as w ell as sotalol 120 mg twice daily. Patient states she recently had a cystoscopy at [facility] and is currently awaiting pathology results. Patient states she had been diagnosed with sleep apnea in the past, however CPAP mask at that time did not fit well. Patient is a never drinker. Past Medical History Past Medical History: Diagnosis Date Personal history of other diseases of the digestive system History of esophageal reflux - (Added by TW Conv) Personal history of other diseases of the respiratory system Personal history of asthma - (Added by TW Conv) Personal history of other endocrine, nutritional and metabolic disease History of obesity - (Added by TW Conv) Polyosteoarthritis Generalized osteoarthritis - (Added by TW Conv) Past Surgical History Past Surgical History: Procedure Laterality Date NH DELIVERY ONLY Section - (Added by TW Conv) NH CHOLECYSTECTOMY Cholecystectomy - (Added by TW Conv) NH LIG/TRNSXJ FLP TUBE ABDL/VAG APPR UNI/BI Tubal Ligation - (Added by TW Conv) Medications Current Outpatient Medications: albuterol HFA (PROVENTIL HFA,VENTOLIN HFA,PROAIR HFA) 90 mcg/actuation inhaler, INHALE 2 PUFFS BY MOUTH FOUR TIMES DAILY NEEDED FOR SHORTNESS OF BREATH OR WHEEZING, Disp: , Rfl: ALPRAZolam (XANAX) 1 mg tablet, Take 1 tablet (1 mg total) by mouth nightly as needed for anxiety (Patient not taking: Reported on 08/27/2023), Disp: , Rfl: clopidogreL (PLAVIX) 75 mg tablet, Take 1 tablet (75 mg total) by mouth daily, Disp: , Rfl: Eliquis 5 mg tablet, Take 1 tablet (5 mg total) by mouth every 12 (twelve) hours, Disp: , Rfl: evolocumab (Repatha SureClick) 140 mg/mL pen injector, INJECT 1 PEN UNDER THE SKIN EVERY 14 DAYS, Disp: , Rfl: ezetimibe (ZETIA) 10 mg tablet, Take 1 tablet (10 mg total) by mouth daily, Disp: , Rfl: fexofenadine-pseudoephedrine (SAMANTHA-D 24) 180-240 mg per 24 hr tablet, Take 1 tablet by mouth daily, Disp: , Rfl: FLUoxetine (PROzac) 40 mg capsule, Take 60 mg by mouth daily, Disp: , Rfl: fluticasone propionate (FLONASE) 50 mcg/actuation nasal spray, Administer 1 spray into each nostrildaily, Disp: , Rfl: isosorbide dinitrate (ISORDIL) 40 mg tablet, Take 50 mg by mouth daily (Patient not taking: Reported on 08/27/2023), Disp: , Rfl: LORazepam (ATIVAN) 0.5 mg tablet, Take 1 tablet (0.5 mg total) by mouth 3 (three) times a day, Disp: , Rfl: losartan (COZAAR) 100 mg tablet, Take 1 tablet (100 mg total) by mouth daily, Disp: 90 tablet, Rfl:3 metFORMIN (GLUCOPHAGE) 500 mg tablet, Take 1 tablet (500 mg total) by mouth 2 (two) times a day with meals, Disp: , Rfl: nitroglycerin (NITROSTAT) 0.4 mg SL tablet, Place 1 tablet (0.4 mg total) under the tongue every 5 (five) minutes as needed for chest pain, Disp: , Rfl: sotaloL (BETAPACE) 120 mg tablet, Take 1 tablet (120 mg total) by mouth 2 (two) times a day, Disp: 180 tablet, Rfl: 3 traZODone (DESYREL) 50 mg tablet, Take 1 tablet (50 mg total) by mouth nightly as needed, Disp: , Rfl: zolpidem (AMBIEN) 10 mg tablet, Take 1 tablet (10 mg total) by mouth nightly as needed for sleep (Patient not taking: Reported on 08/27/2023), Disp: , Rfl: Allergies Allergies Allergen Reactions Penicillins Hives Reaction: Hives, Nyhzjai-Hvk-Eek Reductase Inhibitors Muscle pain Venom-Honey Bee Swelling Haldol [Haloperidol] Other (See comments) Facial drooping Risperidone Other (See comments) Dry mouth Family History Family History Problem Relation Age of Onset Lung cancer Other Malignant Lung Neoplasm - (Added by TW Conv) Hypertension Other Hypertension - (Added by TW Conv) Diabetes Other Diabetes Mellitus - (Added by TW Conv) Social History Social History Tobacco Use Smoking status: Every Day Packs/day: 0.75 Years: 40.00 Additional pack years: 0.00 Total pack years: 30.00 Types: Cigarettes Smokeless tobacco: Not on file Substance and Sexual Activity Drug use: Yes Frequency: 2.0 times per week Types: Marijuana Sexual activity: Defer Alcohol Use: Not At Risk (04/13/2023) AUDIT-C Frequency of Alcohol Consumption: Never Average Number of Drinks: Patient does not drink Frequency of Binge Drinking: Never Review of Systems Review of Systems 12 POINT ROS DONE AND ALL OTHER SYSTEMS ARE NEGATIVE. Objective Vitals: 12/16/23 0810 BP: 120/82 BP Location: Left arm Patient Position: Sitting Pulse: 80 Resp: 16 Weight: 81.6 kg (180 lb) Height: 160 cm (5' 3 ) Physical Exam Constitutional: No distress. Head: Normocephalic. Nose: Nose normal. Mouth/Throat: Mucous membranes are normal. Eyes: Sclera Anicteric Neck: Supple without appreciable lymphadenopathy, carotid bruits Cardiovascular: Regular rhythm, S1 normal and S2 normal. No murmurs/rubs/gallops. Pulmonary/Chest: Decreased breath sounds through all young. No wheezes rhonchi or rales Abdominal: Obese. Soft. Normal appearance. Neurological: alert, oriented Skin: warm and dry, without rashes. Psychiatric: normal mood and affect. Diagnostic Data ECG performed today and reviewed personally reveals normal sinus rhythm. QTC personally measured at418 milliseconds Labs Creatinine Date Value Ref Range Status 04/13/2023 0.85 0.60 - 1.10 mg/dL Final , Plt Date Value Ref Range Status 04/13/2023 216 150 - 400 K/cumm Final , WBC Date Value Ref Range Status 04/13/2023 9.5 3.8 - 9.9 K/cumm Final , Hgb Date Value Ref Range Status 04/13/2023 13.1 11.9 - 15.5 g/dL Final 07/2023 TTE: EF 60-65%. Grade 1 diastolic dysfunction. Mild mitral regurgitation. Normal left atrial chamber size. 09/2023 MPI: CONCLUSIONS: No diagnostic ST changes. Global left ventricular function is normal. Left ventricular ejection fraction is 69 %. Myocardial perfusion imaging is normal. Recommend follow up with manager engagement. Visit Diagnoses (I48.0) Paroxysmal atrial fibrillation (CMS/HCC) (HCC) (primary encounter diagnosis) Plan: ECG 12 lead, Ambulatory referral to Sleep Medicine (Z51.81, Z79.01) Anticoagulation management encounter (Z51.81, Z79.899) Encounter for monitoring sotalol therapy Impression and Plan Mrs. Zaidi with a PMh/o pAF, COPD, HTN, DM, previous CVA and bladder cancer here for initiation of care: #pAF: CHADS2 Vasc of at least 5 (hypertension, diabetes, CVA x2, female sex). Patient is very symptomatic when she has atrial fibrillation, however appears to have good control with her sotalol 120 mg twice daily at this time. Due to ongoing workup of patient's bladder cancer, would hesitate to offer atrial fibrillation ablation due to needing uninterrupted anticoagulation post ablation for at least 3 months. Patient would be high-risk for catheter ablation given underlying respiratory disease as well as significant comorbidities -we will continue sotalol 120 mg twice daily. We will have patient return for repeat EKG and BMP in6 months. Creatinine from 11/06 stable from previous -continue Eliquis 5 mg b.i.d. for CVA prophylaxis -we will be referred to our sleep medicine colleagues for treatment of CATHERINE Discussed role of weight loss on long-term benefits for atrial fib #HTN: Well-controlled at this time. Continue losartan 100 mg daily. Thank you for allowing us to participate in the care of this pleasant patient. Please do not hesitate to call us if any questions arise. Respectfully, Ramakrishna Edmonds MD Clinical Cardiac Electrophysiology [facility] at This note was transcribed using speech recognition software. As a result, there may be grammatical and spelling errors that are unintended. If there are any questions or major inaccuracies, please contact us. CTOR OF INTERCOLLEGIATE ATHLETICS documented in this encounter Plan of Treatment Scheduled Referrals Name Type Priority Associated Diagnoses Orde r Schedule Ambulatory referral to Sleep Medicine Outpatient Referral Routine Paroxysmal atrial fibrillation (CMS/HCC) (HCC) Expected: 12/16/2023 (Approximate), Expires: 12/16/2024 documented as of this encounter Procedures Procedure Name Priority Date/Time Associated Diagnosis Comments ECG 12-LEAD Routine 12/16/2023 Paroxysmal atrial fibrillation (CMS/HCC) (HCC) documented in this encounter Results * ECG 12 lead (12/16/2023) Ramakrishna Edmonds MD ECG ORDERABLES Final Result documented in this encounter Visit Diagnoses Diagnosis Paroxysmal atrial fibrillation (CMS/HCC) (HCC)- Primary Atrial fibrillation Anticoagulation management encounter Encounter for therapeutic drug monitoring Encounter for monitoring sotalol therapy documented in this encounter Care Teams Low Pressure Firer Relationship Specialty Start Date End Date Deisi Andrews MD [address] [facility] [address] [place] [address] PCP - General Family Medicine 04/14/23 documented as of this encounter
--- OUTSIDE RECORDS SUMMARY | 2024-11-12 05:08 | XMS_ITS | Encounter Summary ---
Author Organization [facility] Healthcare Address [address] [place] [address] Care Team Providers Care Joint Cutter Machine Name Role Phone Deisi Andrews MD Primary Care Provider + Encounter Details Date Type Department Care Team (Late st Contact Info) Description 10/29/2023 Orders Only [facility] Medical Group Cardiology [address] [place] [address] [place] [address] [place] [id number] Social History Tobacco Use Types Packs/Day Years Used Date Smoking Tobacco: Every Day Cigarettes 0.8 40 Social Connection and Isolat ion Panel [NHANES] Answer Date Recorded In a typical week, how many times do you talk on the phone with family, friends, or neighbors? More than three times a week 04/14/2023 How often do you get togethe r with friends or relatives? More than three times a week 04/14/2023 How often do you attend chur ch or faith services? 1 to 4 times per year 04/14/2023 Do you belong to any clubs o r organizations such as nondenominational groups, unions, fraternal or athletic groups, or [...] place to sleep or slept in a correction (including now)? No 04/14/2023 Personal Safety Answer Date Recorded Have you ever been in or are you currently in a harmful physical or emotional relationship or is someone making you feel afraid or unsafe? Denies 04/13/2023 Comments Unknown Sex and Gender Information Value Date Recorded Sex Assigned at Not on file Legal Sex Female 7:48 PM VICE PRESIDENT QUALITY Gender Identity Not on file Sexual Orientation Not on file documented as of this encounter Plan of Treatment Not on file documented as of this encounter Procedures Procedure Name Priority Date/Time Associated Diagnosis Comments CARDIOLOGY DOCUMENT SCAN Routine 023 11:18 AM VICE PRESIDENT QUALITY documented in this encounter Results * Cardiology Document Scan (10/27/2023 11:18 AM VICE PRESIDENT QUALITY) Anatomical Region Laterality Modality Other [facility] Veda De Leon MD CV CARDIAC SERVICES PRO CEDURES Final Result documented in this encounter Visit Diagnoses Not on filedocumented in this encounter Care Teams Joint Cutter Machine Relationship Specialty Start Date End Date Deisi Andrews MD [address] [place] [address] [address] [place] [address] PCP - General Family Medicine 04/14/23 documented as of this encounter
--- OUTSIDE RECORDS SUMMARY | 2024-11-12 05:08 | XMS_ITS | Encounter Summary ---
Author Organization [facility] Healthcare Address [address] [place] [address] Care Team Providers Care Nba Player Name Role Phone Deisi Andrews MD Primary Care Provider + Reason for Visit * Reason Comments Atrial Fibrillation EKG only visit Encounter Details Date Type Department Care Team (Latest Contact Info) Description 11/19/2023 11:00 AM FRONT OFFICE DIRECTOR Procedure visit [facility] Medical Group Cardiology [address] [place] [id number] Paroxysmal atrial fibrillation (CMS/HCC) (HCC) (Primary Dx) Social History Tobacco Use [...] often do you attend chur ch or hindu services? 1 to 4 times per year 04/14/2023 Do you belong to any clubs o r organizations such as rastafarian groups, unions, fraternal or athletic groups, or [...] place to sleep or slept in a halfway (including now)? No 04/14/2023 Personal Safety Answer Date Recorded Have you ever been in or are you currently in a harmful physical or emotional relationship or is someone making you feel afraid or unsafe? Denies 04/13/2023 Comments Unknown Sex and Gender Information Value Date Recorded Sex Assigned at Not on file Legal Sex Female 7:48 PM FRONT OFFICE DIRECTOR Gender Identity Not on file Sexual Orientation Not on file documented as of this encounter Progress Notes * Rachel Stroud MA - 11/19/2023 11:00 AM CST Patient here for EKG after starting sotalol 120 mg BID. BP 130/84, left arm, sitting. HR 83 BPM. SpO2 96% on room air. EKG performed and given to RN to discuss with patient. EKG then given to JOHN Saldivar for review. T OFFICE DIRECTOR documented in this encounter Miscellaneous Notes * Addendum Note - Amaury Blum MA - 11/19/2023 11:00 AM CSTAddended by: AMAURY BLUM on: 11/22/2023 11:11 AM Modules accepted: Orders T OFFICE DIRECTOR documented in this encounter Plan of Treatment Not on file documented as of this encounter Procedures Procedure Name Priority Date/Time Associated Diagnosis Comments ECG 12-LEAD Routine 11/19/2023 Paroxysmal atrial fibrillation (CMS/HCC) (HCC) ECG 12-LEAD Routine 11/17/2023 Paroxysmal atrial fibrillation (CMS/HCC) (HCC) documented in this encounter Results * ECG 12 lead (11/19/2023) us Amber Montano EGG PACKER ECG ORDERABLES Final Res ult documented in this encounter Visit Diagnoses Diagnosis Paroxysmal atrial fibrillation (CMS/HCC) (HCC)- Primary Atrial fibrillation documented in this encounter Care Teams Nba Player Relationship Specialty Start Date End Date Deisi Andrews MD [address] [place] [id number] PCP - General Family Medicine 04/14/23 documented as of this encounter
--- OUTSIDE RECORDS SUMMARY | 2024-11-12 05:08 | XMS_ITS | Referral Summary ---
Author Organization [facility] [address] [facility] Address [address] [place] [address] Care Team Providers Care Hotel Director Name Role Phone Deisi Andrews MD Primary Care Provider + Allergies Active Allergy Reactions Criticality Noted Date Comments Haloperidol Other (See comments) Low 04/13/2023 Facial drooping Penicillins Hives High Reaction: Hives, Risperidone Other (See comments) Low 04/13/2023 Dry mouth Efntggh-Rmo-Fos Reductase Inhibitors Muscle pain Medium 08/27/2023 Pt has tried lovastatin 20, pravastatin 40, rosuvastatin 40 mg, and 20 mg. simvastatin 20, and atorvastatin 20 mg and had severe, persistent, and intolerable myalgias. Venom-Honey Bee Swelling Medium 04/13/2023 Medications clopidogreL (PLAVIX) 75 mg tablet Take 1 tablet (75 mg total) by mouth daily Active ezetimibe (ZETIA) 10 mg tablet Take 1 tablet (10 mg total) by mouth daily Active fexofenadine-ps eudoephedrine (SAMANTHA-D 24) 180-240 mg per 24 hr tablet Take 1 tablet by mouth daily Active metFORMIN (GLUCOPHAGE) 500 mg tablet Take 1 tablet (500 mg total) by mouth 2 (two) times a day with meals Active FLUoxetine (PROzac) 40 mg capsule Take 60 mg by mouth daily Active nitroglycerin (NITROSTAT) 0.[address] 1 tablet (0.4 mg total) under the tongue every 5 (five) minutes as needed for chest pain Active fluticasone propionate (FLONASE) 50 mcg/actuation nasal spray Administer 1 spray into each nostril daily Active albuterol HFA (PROVENTIL HFA,VENTOLIN HFA,PROAIR HFA) 90 mcg/actuation inhaler INHALE 2 PUFFS BY MOUTH FOUR TIMES DAILY NEEDED FOR SHORTNESS OF BREATH OR WHEEZING 6 Active traZODone (DESYREL) 50 mg tablet Take 1 tablet (50 mg total) by mouth nightly as needed 3 Active LORazepam (ATIVAN) 0.5 mg tablet Take 1 tablet (0.5 mg total) by mouth 3 (three) times a day Active losartan (COZAAR) 100 mg tablet Take 1 tablet (100 mg total) by mouth daily 90 tablet 3 4 Active sotaloL (BETAPACE) 120 mg tablet Take 1 tablet (120 mg total) by mouth 2 (two) times a day 180 tablet 3 4 11/21/19 25 Active evolocumab (Repatha SureClick) 140 mg/mL pen injector Inject 1 mL (140 mg total) under the skin every 14 (fourteen) days 2 mL 11 4 Active apixaban (Eliquis) 5 mg tablet TAKE 1 TABLET BY MOUTH EVERY 12 HOURS 60 tablet 11 4 Active Active Problems Problem Noted Date Diagnosed Date CATHERINE on CPAP 01/20/2024 Mixed diabetic hyperlipidemi a associated with type 2 diabetes mellitus 08/27/2023 Peripheral arterial disease 08/27/2023 Paroxysmal atrial fibrillation (CMS/HCC) 023 Chronic anticoagulation 08/27/2023 History of CVA (cerebrovascular accident) 2022 Elevated troponin 08/27/2023 Statin myopathy 08/27/2023 Posterior dislocation of left elbow 04/13/2023 Closed dislocation of left elbow, initial encoun ter 04/13/2023 Allergic rhinitis 03/05/2023 04/13/2023 Chronic obstructive pulmonary disease 02/19/2023 04/13/2023 Diverticulitis 01/21/2023 04/13/2023 Coronary artery disease invo lving tun[place] coronary artery of [place] heart without angina pectoris 10/24/2020 04/13/2023 Anxiety 03/01/2017 04/13/2023 Diabetes 03/01/2017 04/13/2023 Cerebrovascular accident 03/01/2017 023 Asthma 01/09/2017 04/13/2023 Insomnia due to medical condition 01/09/2017 04/13/2023 Hypertension associated with diabetes 12/15/2015 04/13/2023 Cervicalgia 04/28/2015 04/13/2023 Condyloma acuminatum 08/23/2013 Chronic otitis media 04/18/2012 Current smoker 04/18/2012 Overview (02/25/2018): Description: 3 cigarettes per day; previously 1/2 ppd x 15 years 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 1 to 4 times per year 04/14/2023 Do you belong to any clubs o r organizations such as faith groups, unions, fraternal or athletic groups, or [...] place to sleep or slept in a prison (including now)? No 04/14/2023 Personal Safety Answer Date Recorded Have you ever been in or are you currently in a harmful physical or emotional relationship or is someone making you feel afraid or unsafe? Denies 04/13/2023 Comments Unknown Sex and Gender Information Value Date Recorded Sex Assigned at Not on file Legal Sex Female 7:48 PM BULLDOZER PRESS OPERATOR Gender Identity Not on file Sexual Orientation Not on file Last Filed Vital Signs Vital Sign Reading Time Taken Comments Blood Pressure 112/64 01/20/2024 8:27 AM BULLDOZER PRESS OPERATOR Pulse 67 01/20/2024 8:27 AM BULLDOZER PRESS OPERATOR Temperature 36.3 ??C (97.3 ??F) 04/14/2023 1 1:23 AM CDT Respiratory Rate 16 12/16/2023 8:10 AM BULLDOZER PRESS OPERATOR Oxygen Saturation 97% 01/20/2024 8:27 AM BULLDOZER PRESS OPERATOR Inhaled Oxygen Concentration - - Weight 81.6 kg (179 lb 12.8 oz) 01/20/2024 8:27 AM BULLDOZER PRESS OPERATOR Height 160 cm (5' 3 ) 01/20/2024 8:27 AM BULLDOZER PRESS OPERATOR Body Mass Index 31.85 01/20/2024 8:27 AM BULLDOZER PRESS OPERATOR Plan of Treatment Not on file Medical Devices Implanted Type Area Sloop Captain Device Identifier Shelf Expiration Date Model / Serial / Lot Stent Bilateral: Leg Procedures Procedure Name Priority Date/Time Associated Diagnosis Comments POCT LIPID PANEL Routine 01/20/2024 9:29 AM BULLDOZER PRESS OPERATOR Coronary artery disease involving tun[place] coronary artery of [place] heart without angina pectoris EGFR STAT 04/13/2023 11:30 AM CDT from Last 3 Months or Most Recently Relevant to Health Maintenance Results * POCT lipid panel (01/20/2024 9:29 AM BULLDOZER PRESS OPERATOR) Cholesterol, POC 236 mg/dL Comment:GLU = 134 HDL, POC 38 mg/dL Triglycerides, POC 231 mg/dL LDL Cholesterol POC 152 mg/dL Chol/HDL Ratio, POC 4.0 Non-HDL Cholesterol, POC 198 mg/dL Cholesterol Total, POC 236 mg/dL Capillary blood 01/20/2024 9 :29 AM BULLDOZER PRESS OPERATOR Ed Blevins MD POINT OF CARE TEST ORDER JENNIFER Final Result * eGFR (04/13/2023 11:30 AM CDT) eGFR 78 mL/min/1. 73 m2 [facility] Comment: Interpretive Data Reference Interval Normal ?>/= 90 mL/min/1.73m2 Mildly decreased* ? 60 - 89 mL/min/1.73m2 Mildly to moderately decreased ?45 - 59 mL/min/1.73m2 Moderately to severely decreased ??30 - 44 mL/min/1.73m2 Severely decreased ?15 - 29 mL/min/1.73m2 Kidney Failure ?< 15 ??mL/min/1.73m2 *Relative to young adult level Estimated glomerular filtration rate is determined by the 2020 CKD-EPI equation recommended by the National Kidney Foundation (A Unifying Approach to GFR Estimation: Recommendations of the NKF-ASK Task Force on Reassessing the Inclusion of Race in Diagnosing Kidney Disease, JASN 2020). The CKD-EPI equation should not be used for patients with unstable renal function and has not been validated in children and those over 70. Current interpretive data was last reviewed 2021. Blood 04/13/2023 11:3 0 AM CDT 04/13/2023 11:54 AM CDT us Deisi Vera NP LAB BLOOD ORDERABLES Fin al Result [facility] [address] [facility] [place] [address] from Last 3 Months or Most Recently Relevant to Health Maintenance Insurance [facility] Advance Directives For more information, please contact: [phone] * Full Code (Latest Code Status on File) Date Activated Date Inactivated Comments 04/13/2023 6:57 PM 04/14/2023 5:30 PM Care Teams Hotel Director Relationship Specialty Start Date End Date Deisi Andrews MD [address] [place] [address] [address] [place] [address] PCP - General Family Medicine 04/14/23
--- OUTSIDE RECORDS SUMMARY | 2024-11-12 05:08 | XMS_ITS | Encounter Summary ---
Author Organization [facility] Healthcare Address [address] [place] [address] Care Team Providers Care Social Service Agency Director Name Role Phone Deisi Andrews MD Primary Care Provider + Encounter Details Date Type Department Care Team (Late st Contact Info) Description 11/22/2023 Telephone [facility] Medical Group Cardiology [address] [place] [address] Ed Blevins MD [address] [facility] [address] [place] [address] Social History Tobacco Use Types Packs/Day [...] often do you attend chur ch or confucianist services? 1 to 4 times per year 04/14/2023 Do you belong to any clubs o r organizations such as religion groups, unions, fraternal or athletic groups, or [...] place to sleep or slept in a chcf (including now)? No 04/14/2023 Personal Safety Answer Date Recorded Have you ever been in or are you currently in a harmful physical or emotional relationship or is someone making you feel afraid or unsafe? Denies 04/13/2023 Comments Unknown Sex and Gender Information Value Date Recorded Sex Assigned at Not on file Legal Sex Female 7:48 PM CARPENTER MINE Gender Identity Not on file Sexual Orientation Not on file documented as of this encounter Ordered Prescriptions Prescription Sig Dispense Quantity Refills Last Filled Start Date End Date losartan (COZAAR) 100 mg tablet Take 1 tablet (100 mg total) by mouth daily 90 tablet 3 11/22/2023 documented in this encounter Miscellaneous Notes * Telephone Encounter - Bib Loving MA - 11/22/2023 2:17 PM CST Sotalol sent in ENTER MINE * Telephone Encounter - Brittanie Saunders - 11/22/2023 1:46 PM CST Pt has many questions about the sotalol medication refill and why it was discontinued in her chart.[phone] is the best number to call her back. ENTER MINE * Telephone Encounter - Bib Loving MA - 11/22/2023 11:45 AM CST Refill for Losartan sent in but as of 11/17/23 pt is no longer on Sotalol per [facility] ENTER MINE * Telephone Encounter - Rica Gaxiola - 11/22/2023 11:30 AM CST Patient requesting refill for Sotalol and Losartan with 90 day supply. Please send to [facility]. Thank you. Contact: ENTER MINE * Telephone Encounter - Mary Mosqueda RN - 11/22/2023 11:01 AM CARPENTER MINE EKG from 11/18/23 and 11/19/23 faxed as requested. ENTER MINE * Telephone Encounter - Rica Gaxiola - 11/22/2023 10:21 AM CST Sammie called from [facility] requesting EKG report from Wednesday be faxed to their office. Thank you. Contact: ENTER MINE documented in this encounter Plan of Treatment Not on file documented as of this encounter Visit Diagnoses Not on filedocumented in this encounter Discontinued Medications Medication Sig Discontinue Reason Start Date End Da te losartan (COZAAR) 100 mg tablet Take 1 tablet (100 mg total) by mouth daily Reorder 11/22/2023 documented as of this encounter Care Teams Social Service Agency Director Relationship Specialty Start Date End Date Deisi Andrews MD [address] [address] PCP - General Family Medicine 04/14/23 documented as of this encounter
--- OUTSIDE RECORDS SUMMARY | 2024-11-12 05:08 | XMS_ITS | Clinical Summary ---
Author Organization [facility] Address [address] [place] [address] Care Team Providers Care Dip Painter Name Role Phone Provider, Abstract Primary Care Provider Unavail able Allergies Active Allergy Reactions Criticality Noted Date Comments Codeine Nausea and Vomiting Low 04/05/2019 Haloperidol Other (See Comments) 04/05/2019 Facial tightening Penicillins Other (See Comments) 04/05/2019 Red face and repeating words Risperidone Other (See Comments) 04/05/2019 Facial drawn up/tightening Simvastatin Other (See Comments) 04/05/2019 Cant walk, leg pain and cramping Triazolam Other (See Comments) 04/05/2019 Drawn up face Venom-Wasp Anaphylaxis High 04/05/2019 Medications Medication Sig Dispensed Refills Start Date End Date Status albuterol HFA 90 mcg inhaler Take 2 Puffs by inhalation every 6 hours as needed for Shortness of Breath. Active ALPRAZolam (XANAX) 1 mg tablet Take 1 mg by mouth 4 times daily as needed for Anxiety. Active amLODIPine (NORVASC) 5 mg tablet Take 5 mg by mouth daily. Active aspirin (ECOTRIN EC) 81 mg Tablet, Delayed Release (E.C.) Take 81 mg by mouth daily. Active cholecalciferol 50,000 unit Capsule Take 50,000 Units by mouth every 7 days. Active cromolyn (CROLOM) 4 % solution Administer 1 Drop in both eyes 2 times daily. Active esomeprazole (NexIUM) 40 mg Capsule, Delayed Release(E.C.) Take 40 mg by mouth daily before breakfast. Active ezetimibe (ZETIA) 10 mg tablet Take 10 mg by mouth daily. Active FLUoxetine (PROzac) 40 mg capsule Take 40 mg by mouth daily. Active furosemide (LASIX) 40 mg tablet Take 40 mg by mouth daily. Active isosorbide mononitrate (IMDUR) 30 mg Extended Release 24 hour tablet Take 30 mg by mouth daily railroad commissioner. Active losartan (COZAAR) 100 mg tablet Take 100 mg by mouth daily. Active metFORMIN (GLUCOPHAGE) 500 mg tablet Take 500 mg by mouth 2 times daily with meals. Active metoprolol tartrate (LOPRESSOR) 25 mg tablet Take 25 mg by mouth daily. Active montelukast (SINGULAIR) 5 mg Tablet, Chewable Take 5 mg by mouth daily. Active nicotine (NICODERM CQ) 14 mg/24 hr patch Apply 1 Patch to skin as directed every 24 hours. Active nitroglycerin (NITROSTAT) 0.4 mg Tablet, Sublingual Place 0.4 mg under tongue every 5 minutes as needed for Chest Pain. Active promethazine (PHENERGAN) 25 mg tablet Take 25 mg by mouth every 6 hours as needed for Nausea/Emesis. Active raNITIdine (ZANTAC) 150 mg tablet Take 150 mg by mouth 2 times daily. Active rosuvastatin (CRESTOR) 20 mg tablet Take 20 mg by mouth daily at bedtime. Active traZODone (DESYREL) 50 mg tablet Take 50 mg by mouth daily at bedtime. Active Active Problems Problem Noted Date Diagnosed Date Lesion of vocal cord 04/05/2019 Family History Medical History Relation Name Comments Other Brother Heart Disease Father Other Father Other Mother Lung Cancer Sister 1 Cancer Sister 2 Healthy Sister 3 Other Sister 4 Relation Name Status Comments Brother Father Mother Sister 1 Sister 2 Alive Sister 3 Alive Sister 4 Alive Social History Tobacco Use Types Packs/Day Years Used Date Smoking Tobacco: Former Cigarettes 1.5 42 0 03/21/1977 - 03/21/2019 Alcohol Use Standard Drinks/Week Comments Yes 0 (1 standard drink = 0.6 oz pur e alcohol) rarely Sex and Gender Information Value Date Recorded Sex Assigned at Not on file Gender Identity Not on file Sexual Orientation Not on file Last Filed Vital Signs Vital Sign Reading Time Taken Comments Blood Pressure 135/111 05/04/2019 1:59 PM CDT Pulse 86 05/04/2019 1:59 PM CDT Temperature 36.9 ??C (98.4 ??F) 05/04/2019 1:59 PM CD T Respiratory Rate 18 05/04/2019 1:59 PM CDT Oxygen Saturation 95% 05/04/2019 1:59 PM CDT Inhaled Oxygen Concentration - - Weight 90.9 kg (200 lb 8 oz) 05/04/2019 1:59 PM CDT Height 160 cm (5' 3 ) 05/04/2019 1:59 PM CDT Body Mass Index 35.52 05/04/2019 1:59 PM CDT Plan of Treatment Health Maintenance Due Date Last Done Comments DIABETES ANNUAL FOOT EXAM 1979 DIABETES MICROALBUMIN ANNUAL SCREEN 1979 LDL CHOLESTEROL ANNUAL 1979 CERVICAL CANCER SCREENING 1991 BREAST CANCER SCREENING 2001 COLORECTAL SCREENING 2006 Colorectal Cancer Screening 2006 FIT-DNA Q 3 years 2006 FIT/FOBT Q 1 year 2006 Flex Sig/CT Colonography Q 5 years 2006 ZOSTER VACCINE (1 of 2) 2011 RSV VACCINE (60+ or ) (1 - Risk 60-74 years 1-dose series) 2021 DIABETES ANNUAL RETINAL EXAM 12/02/2022 12/02/2021, 06/12/2020 DIABETES HBA1C Q 6 MONTHS 05/22/2024 11/22/2023, INFLUENZA VACCINE (#1) 2024 , 08/28/2020, 09/22/2019, Additional history exists COVID-19 Vaccine (3 - 2023-2 5 season) 2024 03/13/2021, 02/17/2021 PNEUMOCOCCAL VACCINE 0-64 YE ARS (3 of 3 - PPSV23 or PCV20) 2026 10/21/2016, 07/23/2016, 12/16/2015 DTAP/TDAP/TD VACCINES (3 - T d or Tdap) 05/27/2031 05/27/2021, 01/31/2019 Care Teams Dip Painter Relationship Specialty Start Date End Date Provider, Abstract NO ADDRESS ON FILE PCP - General 03/24/19
--- OUTSIDE RECORDS SUMMARY | 2024-11-12 05:08 | XMS_ITS | Encounter Summary ---
Author Organization [facility] Address [address] [place] [address] Care Team Providers Care Spot Sprayer Name Role Phone Provider, Abstract Primary Care Provider Unavail able Reason for Visit * Reason Comments Follow Up Results Encounter Details Date Type Department Care Team (Late st Contact Info) Description 05/04/2019 1:45 PM CDT Office Visit [facility] Oncology and Hematology - [place] [address] [place] [address] [facility] [address] [place] [address] Juan Ricardo MD [address] [facility] [address] [place] [address] False vocal cord lesion (Primary Dx) Social History Tobacco Use Types [...] Mass Index 35.52 05/04/2019 1:59 PM CDT documented in this encounter Progress Notes * Juan Ricardo MD - 05/04/2019 6:20 PM CDT HEMATOLOGY / ONCOLOGY PROGRESS NOTE Patient Identification: Name: Rody Zaidi Age: 58 y.o. Sex: female : 1960 Subjective: HPI This is a 58-year-old obese female with history of COPD and smoking 1 1/2 to 2 pack/day for 42 years duration. Patient was seen by ENT service about a month ago and examination showed lesion in the vocal cord. She was supposed to follow-up with Dr. Mattson but got admitted to the hospital on March 28, 2019 with nausea vomiting. She had EGD done on March 30, 2019 that showed gastritis and duodenitis. Patient also had colonoscopy done recently. She has been complaining of nonproductive cough. Complain of some shortness of breath but denies fevers and chills. She was treated with antibiotics for community-acquired pneumonia. She lost 16 pound weight in last 6 months duration. Complain of some dyspnea on exertion. Denies any bone pain. Denies any new lumps bumps or lymphadenopathy. She now quit smoking on March 21, 2019. Patient came into the office to discuss biopsy results and further management. She denies any chestpain and shortness of breath. Denies any weight loss. She has no other new complaints. Interval History: Vocal cord lesion biopsy done on April 27, 2019. Review of system Constitutional: No fever; no night sweats; no anorexia; no weight loss; no fatique Respiratory: No shortness of breath; no pleuritic chest pain; no cough; no hemoptysis Cardiac: No cardiac-like chest pain; no palpitations; no orthopnea; no PND; no [facility] GI: No abdominal pain; no nausea; no vomiting; no diarrhea; no hematochezia; no melena Musculosketetal: no bone pain; no arthralgia; no joint swelling; no myalgia; Neuro: No headache; no change in vision; no sensory changes; no muscle weakness; no confusion; no seizures Ext no edema 12 point review of system was reviewed Objective: Vital signs in last 24 hours: As per nursing note Exam: Gen: NAD Lungs: Clear Cardiac: S1 and S2 without murmurs or gallops Abd: Soft, tender, no hepatomegally, no masses Extr: No LE edema Examination as above Scheduled Meds:@MEDSSCHEDULED@ Continuous Infusions:@MEDSINFUSIONS@ Data Review: [facility] @IMAGEIMP@ Assessment: Plan: Patient Active Problem List Diagnosis Date Noted ??? 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 Status post vocal cord lesion biopsy done on April 27 came back benign. Patient will follow-up with Dr. Mattson tomorrow to discuss it further. I will just see her on as-needed basis. ?? Type 2 diabetes. Patient is on Glucophage. ?? COPD. Patient has been using albuterol inhaler as needed. ?? Hypertension. Patient is on Norvasc. This has been managed by the primary care physician. ?? Gastroesophageal reflux disease. Patient is on Nexium. Dr. Cordova has been monitoring patient. ? TOBACCO COUNSELING She was counseled to discontinue tobacco use. 05/04/2019 Juan Ricardo MD documented in this encounter Plan of Treatment Not on file documented as of this encounter Visit Diagnoses Diagnosis False vocal cord lesion- Primary Other diseases of vocal cords documented in this encounter Care Teams Spot Sprayer Relationship Specialty Start Date End Date Provider, Abstract NO ADDRESS ON FILE PCP - General 03/24/19 documented as of this encounter
--- OUTSIDE RECORDS SUMMARY | 2024-11-12 05:08 | XMS_ITS | Encounter Summary ---
Author Organization [facility] Healthcare Address [address] [place] [address] Care Team Providers Care Double Needle Operator Name Role Phone Deisi Andrews MD Primary Care Provider + Reason for Visit * Reason Comments Hospital Follow Up Encounter Details Date Type Department Care Team (Late st Contact Info) Description 11/17/2023 2:30 PM SODA FLAKER Office Visit [facility] Cardiology [address] [place] [address] Kely Moran NP [address] [place] [address] Paroxysmal atrial fibrillation (CMS/HCC) (HCC) (Primary Dx) [...] How often do you attend chur or alevism services? 1 to 4 times per year 04/14/2023 Do you belong to any clubs o r organizations such as episcopal groups, unions, fraternal or athletic groups, or [...] place to sleep or slept in a jail (including now)? No 04/14/2023 Personal Safety Answer Date Recorded Have you ever been in or are you currently in a harmful physical or emotional relationship or is someone making you feel afraid or unsafe? Denies 04/13/2023 Comments Unknown Sex and Gender Information Value Date Recorded Sex Assigned at Not on file Legal Sex Female 7:48 PM SODA FLAKER Gender Identity Not on file Sexual Orientation Not on file documented as of this encounter Last Filed Vital Signs Vital Sign Reading Time Taken Comments Blood Pressure 108/78 11/17/2023 2:20 PM SODA FLAKER Pulse 108 11/17/2023 2:20 PM SODA FLAKER Temperature - - Respiratory Rate - - Oxygen Saturation 96% 11/17/2023 2:20 PM SODA FLAKER Inhaled Oxygen Concentration - - Weight 80.7 kg (178 lb) 11/17/2023 2:20 PM SODA FLAKER Height 160 cm (5' 3 ) 11/17/2023 2:20 PM SODA FLAKER Body Mass Index 31.53 11/17/2023 2:20 PM SODA FLAKER documented in this encounter Progress Notes * Kely Moran NP - 11/17/2023 2:30 PM CST [facility] Cardiology [address] [place] [address] Date of Visit: 11/17/2023 Patient ID: Rody Zaidi 1960 Chief Complaint: Rody Zaidi is a 62 y.o. female who comes to the office for a hospital follow up for atrial fibrillation History of Present Illness: Rody Zaidi is a 62 y.o. female with a past medical history of peripheral arterial disease statuspost prior intervention, type 2 diabetes mellitus, COPD, hypertension, history of paroxysmal atrialfibrillation, history of CVA, hyperlipidemia seen in routine hospital follow-up after admission for sepsis, elevated troponin and atrial fibrillation. 08/27/23 Initial hospital follow-up visit: Feeling better since admission for sepsis C Diff. She had AF with RVR, mild flat Trop elevation notACS. She was not on A/C for unclear reasons started on Eliquis 5mg BID doing well. No palps or CP now, SOB chronic stable.. On Plavix as well, no bleeding. Remains on Repatha and Zetia 10mg daily. Taking Metoprolol 50mg BID. 11/17/2023 Hospital follow-up with [facility] - Rody Zaidi comes to the office today for a hospital followup visit. During recent hospitalization she was placed on sotalol and had converted to sinus rhythm. Her heart rate on EKG is 133 beats per minute with a QTC of 538 milliseconds. She states that whenshe took her pulse this morning it was 145 beats per minute. She does not feel any palpitations, shortness or breath, or chest pain. Records that I personally reviewed on the day of this visit include: (the interpretation is outlined in the HPI above) Records from the above mentioned hospital admission. I have also reviewed: allergies, current medications, past family history, past medical history, past social history, past surgical history and problem list Review of Systems Constitutional: Positive for diaphoresis and fever. Negative for malaise/fatigue, night sweats, weight gain and weight loss. HENT: Negative for hearing loss. Eyes: Negative for blurred vision and visual disturbance. Cardiovascular: Negative for chest pain, claudication, dyspnea on exertion, irregular heartbeat, leg swelling, near-syncope, orthopnea, palpitations, paroxysmal nocturnal dyspnea and syncope. Respiratory: Negative for shortness of breath, sleep disturbances due to breathing, snoring and wheezing. Hematologic/Lymphatic: Negative for bleeding problem. Musculoskeletal: Negative for muscle cramps and muscle weakness. Gastrointestinal: Negative for abdominal pain, change in bowel habit, diarrhea, nausea and vomiting. Genitourinary: Negative for hematuria. Neurological: Negative for dizziness and headaches. Vital Signs: BP 108/78 (BP Location: Left arm, Patient Position: Sitting) Pulse 108 Ht 160 cm (5' 3 ) Wt 80.7 kg (178 lb) SpO2 96% BMI 31.53 kg/m?? Body mass index is 31.53 kg/m??. Physical Exam Vitals reviewed. Constitutional: General: She is not in acute distress. HENT: Head: Normocephalic and atraumatic. Eyes: Extraocular Movements: Extraocular movements intact. Conjunctiva/sclera: Conjunctivae normal. Cardiovascular: Rate and Rhythm: Normal rate and regular rhythm. Heart sounds: Normal heart sounds. Pulmonary: Effort: Pulmonary effort is normal. No respiratory distress. Breath sounds: Normal breath sounds. Abdominal: General: Bowel sounds are normal. Palpations: Abdomen is soft. Musculoskeletal: General: Normal range of motion. Cervical back: Normal range of motion and neck supple. Skin: General: Skin is warm and dry. Neurological: Mental Status: She is alert and oriented to person, place, and time. Allergies Allergen Reactions Penicillins Hives Reaction: Hives, Wfplzkb-[id number]-Xvn Reductase Inhibitors Muscle pain Venom-Honey Bee Swelling Haldol [Haloperidol] Other (See comments) Facial drooping Risperidone Other (See comments) Dry mouth Current Outpatient Medications: albuterol HFA (PROVENTIL HFA,VENTOLIN HFA,PROAIR HFA) 90 mcg/actuation inhaler, INHALE 2 PUFFS BY MOUTH FOUR TIMES DAILY NEEDED FOR SHORTNESS OF BREATH OR WHEEZING, Disp: , Rfl: clopidogreL (PLAVIX) 75 mg [...] spray into each nostrildaily, Disp: , Rfl: LORazepam (ATIVAN) 0.5 mg tablet, Take 1 tablet (0.5 mg total) by mouth 3 (three) times a day, Disp: , Rfl: losartan (COZAAR) 100 mg tablet, Take 1 tablet (100 mg total) by mouth daily, Disp: , Rfl: metFORMIN (GLUCOPHAGE) 500 mg tablet, Take 1 tablet (500 mg total) by mouth 2 (two) times a day with meals, Disp: , Rfl: nitroglycerin (NITROSTAT) 0.4 mg SL tablet, Place 1 tablet (0.4 mg total) under the tongue every 5 (five) minutes as needed for chest pain, Disp: , Rfl: traZODone (DESYREL) 50 mg tablet, Take 1 tablet (50 mg total) by mouth nightly as needed, Disp: , Rfl: ALPRAZolam (XANAX) 1 mg tablet, Take 1 tablet (1 mg total) by mouth nightly as needed for anxiety (Patient not taking: Reported on 08/27/2023), Disp: , Rfl: isosorbide dinitrate (ISORDIL) 40 mg tablet, Take 50 mg by mouth daily (Patient not taking: Reported on 08/27/2023), Disp: , Rfl: zolpidem (AMBIEN) 10 mg tablet, Take 1 tablet (10 mg total) by mouth nightly as needed for sleep (Patient not taking: Reported on 08/27/2023), Disp: , Rfl: Lab Results Component Value Date POTASSIUM 4.4 04/13/2023 BUNSER 28 (H) 04/13/2023 CREATININE 0.85 04/13/2023 Assessment: Diagnoses and all orders for this visit: Paroxysmal atrial fibrillation (CMS/HCC) (HCC) (Primary) EKG shows atrial fibrillation with RVR, rate 133 bpm. Qtc 538. [facility] with [facility] response. Counseled patient regarding need for acute care services and admission to the hospital as it would be unsafe to try any manage her arrhythmia at home given current use of sotalol limiting options for immediate use of other anti-arrhythmics (e.g. amiodarone). Patient verbalizes understanding of need for hospital admission and is in agreement with plan. Kely LOPEZ- Nurse Practitioner with [facility] Cardiology This note is dictated and transcribed using [employer] Direct Software. Occupational Medicine Officer variancesmay occur. Despite proofreading, typographical errors may occur. Cosigned by Ed Blevins MD at 11/17/2023 5:22 PM SODA FLAKER FLAKER FLAKER documented in this encounter Plan of Treatment Not on file documented as of this encounter Visit Diagnoses Diagnosis Paroxysmal atrial fibrillation (CMS/HCC) (HCC)- Primary Atrial fibrillation documented in this encounter Discontinued Medications Medication Sig Discontinue Reason Start Date End Da te metoprolol tartrate (LOPRESSOR) 50 mg immediate release tablet Take 1 tablet (50 mg total) by mouth every 12 (twelve) hours Alternate therapy 11/17/2023 sotaloL (BETAPACE) 80 mg tablet Take 1 tablet (80 mg total) by mouth every 12 (twelve) hours 10/28/2023 11/17/2023 documented as of this encounter Historical Medications * This list may reflect changes made after this encounter. LORazepam (ATIVAN) 0.5 mg tablet Take 1 tablet (0.5 mg total) by mouth 3 (three) times a day sotaloL (BETAPACE) 80 mg tablet Take 1 tablet (80 mg total) by mouth every 12 (twelve) hours 10/28/2023 11/17/2023 added in this encounter Care Teams Double Needle Operator Relationship Specialty Start Date End Date Deisi Andrews MD [address] [place] [address] [place] [id number] PCP - General Family Medicine 04/14/23 documented as of this encounter
--- OUTSIDE RECORDS SUMMARY | 2024-11-12 05:08 | XMS_ITS | Encounter Summary ---
Author Organization [facility] Healthcare Address [address] [place] [address] Care Team Providers Care Negative Developer Name Role Phone Deisi Andrews MD Primary Care Provider + Encounter Details Date Type Department Care Team (Late st Contact Info) Description 03/01/2024 Telephone [facility] Cardiology [address] [place] [address] Ed Blevins MD [address] [facility] [address] [place] [address] Social History Tobacco Use Types [...] often do you attend chur ch or yarsani services? 1 to 4 times per year 04/14/2023 Do you belong to any clubs o r organizations such as sabianist groups, unions, fraternal or athletic groups, or [...] on file Legal Sex Female 7:48 PM EXPLOSIVE SPECIALIST Gender Identity Not on file Sexual Orientation Not on file documented as of this encounter Miscellaneous Notes * Telephone Encounter - Rachel Stroud MA - 03/01/2024 11:29 AM CDT Price GARCIA approved through 02/28/2025. Pharmacy notified. Approval letter scanned in to this encounter. * Telephone Encounter - Rachel Stroud MA - 03/01/2024 10:40 AM CDT Received a fax from [facility] for Price GARCIA. Submitted PA via Cover CONEXANCE MD Meds. Awaiting response. documented in this encounter Plan of Treatment Not on file documented as of this encounter Visit Diagnoses Not on filedocumented in this encounter Care Teams Negative Developer Relationship Specialty Start Date End Date Deisi Andrews MD [address] [address] PCP - General Family Medicine 04/14/23 documented as of this encounter
--- OUTSIDE RECORDS SUMMARY | 2024-11-12 05:08 | XMS_ITS | Encounter Summary ---
Author Organization [facility] Address [address] [place] [address] Care Team Providers Care Tree Driller Name Role Phone Provider, Abstract Primary Care Provider Unavail able Encounter Details Date Type Department Care Team (Late st Contact Info) Description 04/03/2019 Orders Only [facility] Oncology and Hematology - [address] [address] Provider, Abstract NO ADDRESS ON FILE Social History Tobacco Use Types Packs/Day Years Used Date Smoking Tobacco: Never Assessed Sex and Gender Information Value Date Recorded Sex Assigned at Not on file Gender Identity Not on file Sexual Orientation Not on file documented as of this encounter Plan of Treatment Not on file documented as of this encounter Procedures Procedure Name Priority Date/Time Associated Diagnosis Comments PATHOLOGY Routine 03/30/2019 XR SACRUM AND COCCYX Routine 03/30/2019 XR CHEST 2 VW W FLUOROSCOPY Routine 03/30/2019 XR CHEST LAT 1 VW Routine 03/29/2019 CT ABDOMEN PELVIS W CONTRAST Routine 03/29/2019 documented in this encounter Results * PATHOLOGY (03/30/2019) Tissue Abstract Provider PATHOLOGY/CYTOLOGY O RDERABLES [facility] * XR SACRUM AND COCCYX (03/30/2019) Anatomical Region Laterality Modality Pelvis Other Abstract Provider DIAGNOSTIC IMAGING O RDERABLES * XR CHEST 2 VW W FLUOROSCOPY (03/30/2019) Anatomical Region Laterality Modality Chest Other Abstract Provider DIAGNOSTIC IMAGING O RDERABLES * XR CHEST LAT 1 VW (03/29/2019) Anatomical Region Laterality Modality Chest Other Abstract Provider DIAGNOSTIC IMAGING O RDERABLES * CT ABDOMEN PELVIS W CONTRAST (03/29/2019) Anatomical Region Laterality Modality Abdomen Other Abstract Provider CT ORDERABLES documented in this encounter Visit Diagnoses Not on filedocumented in this encounter Care Teams Tree Driller Relationship Specialty Start Date End Date Provider, Abstract NO ADDRESS ON FILE PCP - General 03/24/19 documented as of this encounter
--- OUTSIDE RECORDS SUMMARY | 2024-11-12 05:08 | XMS_ITS | Encounter Summary ---
Author Organization [facility] Address [address] [place] [address] Care Team Providers Care Interactive Graphic Designer Name Role Phone Provider, Abstract Primary Care Provider Unavail able Encounter Details Date Type Department Care Team (Late st Contact Info) Description 03/24/2019 Orders Only [facility] Oncology and Hematology - [place] [address] [address] Provider, Abstract NO ADDRESS ON [...] Name Priority Date/Time Associated Diagnosis Comments CT ST NECK W WO + CHEST W CONT Routine 03/02/2019 NM GASTRIC EMPTYING Routine 03/02/2019 UPPER ENDOSCOPY REPORT Routine 02/23/2019 CT CHEST ABDOMEN PELVIS W CONT Routine 01/16/2019 CT HEAD WO CONTRAST Routine 11/22/2018 CT CHEST ABDOMEN PELVIS W CONT Routine 11/22/2018 documented in this encounter Results * CT ST NECK W WO + CHEST W CONT (03/02/2019) Anatomical Region Laterality Modality Neck Other Abstract Provider CT ORDERABLES * NM GASTRIC EMPTYING (03/02/2019) Anatomical Region Laterality Modality Abdomen Other Abstract Provider NM ORDERABLES * UPPER ENDOSCOPY REPORT (02/23/2019) Abstract Provider GI PROCEDURE ORDERAB LES [facility] * CT CHEST ABDOMEN PELVIS W CONT (01/16/2019) Anatomical Region Laterality Modality Chest Other Abstract Provider CT ORDERABLES * CT HEAD WO CONTRAST (11/22/2018) Anatomical Region Laterality Modality Head Other Abstract Provider CT ORDERABLES * CT CHEST ABDOMEN PELVIS W CONT (11/22/2018) Anatomical Region Laterality Modality Chest Other Abstract Provider CT ORDERABLES documented in this encounter Visit Diagnoses Not on filedocumented in this encounter Care Teams Interactive Graphic Designer Relationship Specialty Start Date End Date Provider, Abstract NO ADDRESS ON FILE PCP - General 03/24/19 documented as of this encounter
--- OUTSIDE RECORDS SUMMARY | 2024-11-12 05:08 | XMS_ITS | Encounter Summary ---
Author Organization [facility] Healthcare Address [address] [place] [address] Care Team Providers Care Professor Of Biblical Studies Name Role Phone Deisi Andrews MD Primary Care Provider + Encounter Details Date Type Department Care Team (Late st Contact Info) Description 11/22/2023 Telephone [facility] Cardiology [address] [address] Kely Moran NP [address] [address] Social History Tobacco Use Types Packs/Day Years [...] often do you attend chur ch or amish services? 1 to 4 times per year [...] place to sleep or slept in a half-way (including now)? No 04/14/2023 Personal Safety Answer Date Recorded Have you ever been in or are you currently in a harmful physical or emotional relationship or is someone making you feel afraid or unsafe? Denies 04/13/2023 Comments Unknown Sex and Gender Information Value Date Recorded Sex Assigned at Not on file Legal Sex Female 7:48 PM TISSUE RECOVERY TECHNICIAN Gender Identity Not on file Sexual Orientation Not on file documented as of this encounter Miscellaneous Notes * Telephone Encounter - Brittanie Saunders - 11/22/2023 1:57 PM CST error UE RECOVERY TECHNICIAN documented in this encounter Plan of Treatment Not on file documented as of this encounter Visit Diagnoses Not on filedocumented in this encounter Care Teams Professor Of Biblical Studies Relationship Specialty Start Date End Date Deisi Andrews MD [address] [address] PCP - General Family Medicine 04/14/23 documented as of this encounter
--- OUTSIDE RECORDS SUMMARY | 2024-11-12 05:08 | XMS_ITS | Continuity of Care Document ---
Author Organization [facility] Address [address] [place] [address] [place] [address] Phone Care Team Providers Care Vice President Of Instruction Name Role Phone William Garay MD Unavailable Unavailable Allergies, Adverse Reactions, Alerts Substance Reaction Status Criticality risperidone Active No Information KETOROLAC TROMETHAMINE Active No In formation penicillin G Active No Information Medications Medication Instructions Dosage Effective Dates (start - stop) Status Comments pravastatin 40 mg tablet take 1 tablet by oral route every day 40 MG - Active [place]land 10 mg-325 mg tablet take 1 by Oral route 3 times every day 1 - Active avoid driving or operate machines Ventolin HFA 90 mcg/actuation aerosol inhaler inhale 2 puff by inhalation route every 4 - 6 hours as needed - Active Qvar 40 mcg/actuation Metered Aerosol oral inhaler inhale 1 puff by inhalation route 2 times every day - Active Atrovent HFA 17 mcg/actuation aerosol inhaler inhale 2 puff by inhalation route 4 times every day 34 MCG - Active metformin 500 mg tablet take 1 tablet by oral route 2 times every day with morning and evening meals 500 MG - Active omeprazole 20 mg capsule,delayed release take 1 capsule by oral route every day before a meal 20 MG - Active albuterol sulfate 2.5 mg/3 mL (0.083 %) solution for nebulization inhale 3 milliliter (2.5MG) by nebulization route every 6 hours as needed 2.5 MG - Active PRN for SOB losartan 100 mg tablet take 1 tablet (100MG) by oral route every day 100 MG - Active Oralone 0.1 % dental paste apply by topical route 2 times every day a small amount to the affected area after meals Not Available - Active 5 gm Singulair 10 mg tablet take 1 tablet (10MG) by oral route every day in the evening 10 MG - Active Procedures Procedure Date OFFICE/OUTPATIENT VISIT, EST OFFICE/OUTPATIENT VISIT, EST OFFICE/OUTPATIENT VISIT, EST OFFICE/OUTPATIENT VISIT, EST OFFICE/OUTPATIENT VISIT, EST OFFICE/OUTPATIENT VISIT, EST OFFICE/OUTPATIENT VISIT, EST OFFICE/OUTPATIENT VISIT, EST OFFICE/OUTPATIENT VISIT, EST OFFICE/OUTPATIENT VISIT, EST OFFICE/OUTPATIENT VISIT, EST OFFICE/OUTPATIENT VISIT, EST PREV VISIT, EST, AGE 40-64 OFFICE/OUTPATIENT VISIT, EST OFFICE/OUTPATIENT VISIT, EST OFFICE/OUTPATIENT VISIT, EST OFFICE/OUTPATIENT VISIT, EST OFFICE/OUTPATIENT VISIT, EST OFFICE/OUTPATIENT VISIT, EST OFFICE/OUTPATIENT VISIT, EST OFFICE/OUTPATIENT VISIT, EST OFFICE/OUTPATIENT VISIT, EST OFFICE/OUTPATIENT VISIT, EST OFFICE/OUTPATIENT VISIT, EST OFFICE/OUTPATIENT VISIT, EST OFFICE/OUTPATIENT VISIT, EST OFFICE/OUTPATIENT VISIT, EST OFFICE/OUTPATIENT VISIT, EST OFFICE/OUTPATIENT VISIT, EST PREV VISIT, NEW, AGE 40-64 Advance Directives Directive Yes / No Effective Date File Name No Information Encounters Encounter Description Practice Location Reason(s) For Visit Diagnoses Date Provider Providers Copied on Encounter [facility], [address], [place], [address], [place] tel:[phone] [facility] No Information 5 Jarrod Thomas. [address], [address], [place], [address]. tel:[phone] Referring Provider: William Garay, [address], [place], [address]. tel:[phone] OFFICE/OUTPA TIENT VISIT, [facility], [address], [place], [address], [place] tel:[phone] [facility] PRES (chief complaint) HLP (chief complaint) back pain (chief complaint) Anxiety (chief complaint) Dietary surveillance and counselingOther encephalopathyBack painProteinuria 5 Jarrod Thomas. [address], [address], [place], [address]. tel:[phone] Referring Provider: William Garay, [address], [place], [address]. tel:[phone] [facility], [address], [place], [address], [place] tel:[phone] [facility] No Information 5 Jarrod Thomas. [address], [address], [place], [address]. tel:[phone] OFFICE/OUTPA TIENT VISIT, [facility], [address], [place], [address], [place] tel:[phone] [facility] chronic pain (chief complaint) DM (chief complaint) CVA (chief complaint) Dietary surveillance and counselingAsthmaCVA , AcuteGERDLumbago 5 Jarrod Thomas. [address], [address], [place], [address]. tel:[phone] Referring Provider: [address], [place], [address]. tel:[phone] OFFICE/OUTPA TIENT VISIT, [facility], [address], [place], [address], [place] tel:[phone] [facility] HLP (chief complaint) GERD (chief complaint) DM (chief complaint) CVA (chief complaint) CVA, AcuteDiabetes Mellitus, Adult Onset, UncontrolledOther and unspecified hyperlipidemiaGERDD ietary surveillance and counseling 5 Jarrod Thomas. [address], [address], [place], [address]. tel:[phone] Referring Provider: [address], [place], [address]. tel:[phone] OFFICE/OUTPA TIENT VISIT, [facility], [address], [place], [address], tel:[phone] [facility] leg pain (chief complaint) chronic pain (chief complaint) GERD (chief complaint) HLP (chief complaint) headache (chief complaint) Dietary surveillance and counselingPain in limbOther and unspecified hyperlipidemiaHeada cheGERD Jan- 0- 5 Jarrod Thomas. [address], [address], [place], [address]. [phone] Referring Provider: [address], [place], [address]. tel:[phone] OFFICE/OUTPA TIENT VISIT, [facility], [address], [place], [address], [place] tel:[phone] [facility] GERD (chief complaint) chronic pain (chief complaint) COPD (chief complaint) Dietary surveillance and counselingGERDLumba goCOPDOpioid type dependence, unspecified use 5 Jarrod Thomas. [address], [address], [place], [address]. tel:[phone] Referring Provider: [address], [place], [address]. tel:[phone] [facility], [address], [place], [address], [place] tel:[phone] [facility] No Information 5 Jarrod Thomas. [address], [address], [place], [address]. tel:[phone] OFFICE/OUTPA TIENT VISIT, [facility], [address], [place], [address], tel:[phone] [facility] HLP (chief complaint) chronic pain (chief complaint) HTN (chief complaint) anxiety (chief complaint) Dietary surveillance and counselingCervicalg iaOther and unspecified hyperlipidemiaHyper tension, UnspecifiedGenerali zed anxiety disorder 5 Jarrod Thomas. [address], [address], [place], [address]. tel:[phone] Referring Provider: William Garay, [address], [place], [address]. tel:[phone] OFFICE/OUTPA TIENT VISIT, [facility], [address], [place], [address], tel:[phone] [facility] HLP (chief complaint) chest pain (chief complaint) GERD (chief complaint) HTN (chief complaint) Chest Pain, UnspecifiedBody Mass Index 38.0-38.9, adultHypertension, UnspecifiedGERD 4 Jarrod Thomas. [address], [address], [place], [facility]. [phone] Referring Provider: [address], [place], [address]. tel:[phone] OFFICE/OUTPA TIENT VISIT, [facility], [address], [place], [address], [place] tel:[phone] [facility] chornic pain (chief complaint) HLP (chief complaint) chest pain (chief complaint) Dietary surveillance and counselingChest Pain, UnspecifiedAsthmaPa in in joint involving lower leg 4 Jarrod Thomas. [address], [address], [place], [address]. tel:[phone] Referring Provider: [address], [place], [facility]. tel:[phone] OFFICE/OUTPA TIENT VISIT, [facility], [address], [place], [address], [place] tel:[phone] [facility] chronic pain (chief complaint) HLP (chief complaint) knee pain (chief complaint) sinus (chief complaint) Dietary surveillance and counselingCHRONIC PAIN NECOther and unspecified hyperlipidemiaPain in joint involving lower legSinusitis, Acute 4 Jarrod Thomas. [address], [address], [place], [address]. tel:[phone] Referring Provider: William Garay, [address], [place], [address]. tel:[phone] OFFICE/OUTPA TIENT VISIT, [facility], [address], [place], [address], [place] tel:[phone] [facility] sick (chief complaint) HLP (chief complaint) chornic pain (chief complaint) Dietary surveillance and counselingViral Infection, UnspecifiedOther and unspecified hyperlipidemiaLumba 4 Jarrod Thomas. [address], [address], [place], [address]. tel:[phone] Referring Provider: [address], [place], [address]. tel:[phone] OFFICE/OUTPA TIENT VISIT, [facility], [address], [place], [address], [place] tel:[phone] [facility] HLP (chief complaint) Hyperglyce adi (chief complaint) chornic pain (chief complaint) asthma (chief complaint) Dietary surveillance and counselingOther and unspecified hyperlipidemiaMetab olic SyndromeLumbagoAsth ma 4 Jarrod Thomas. [address], [address], [place], [address]. tel:[phone] Referring Provider: William Garay, [address], [place], [address]. tel:[phone] OFFICE/OUTPA TIENT VISIT, [facility], [address], [place], [address], [place] tel:[phone] [facility] asthma (chief complaint) GERD (chief complaint) HLP (chief complaint) chornic pain (chief complaint) Dietary surveillance and counselingAsthmaGER DOther and unspecified hyperlipidemiaLumba 4 Jarrod Thomas. [address], [place], [address]. tel:[phone] Referring Provider: William Garay, [address], [place], [address]. tel:[phone] PREV VISIT, EST, AGE 40-64 [facility], [address], [place], [address], [place] tel:[phone] [facility] Physical (chief complaint) Dietary surveillance and counselingRoutine Medical ExamRoutine Medical Exam 4 Jarrod Thomas. [address], [place], [address]. tel:[phone] Referring Provider: William Garay, [address], [place], [address]. tel:[phone] OFFICE/OUTPA TIENT VISIT, [facility], [address], [place], [address], [place] tel:[phone] [facility] carpal tunnel (chief complaint) chornic pain (chief complaint) HLP (chief complaint) asthma (chief complaint) Dietary surveillance and counselingCarpal Tunnel SyndromeAsthmaOther and unspecified hyperlipidemiaCHRON IC PAIN NEC 4 Jarrod Thomas. [address], [address], [place], [address]. [phone] Referring Provider: William Garay, [address], [place], [address]. tel:[phone] OFFICE/OUTPA TIENT VISIT, EST [facility], [address], [place], [address], [place] tel:[phone] [facility] chornic pain (chief complaint) numbness (chief complaint) HLP (chief complaint) asthma (chief complaint) Disturbance of skin sensationLumbagoPVD with ClaudicationAsthma 4 Jarrod Thomas. [address], [place], [address]. tel:[phone] Referring Provider: William Garay, [address], [place], [address]. tel:[phone] OFFICE/OUTPA TIENT VISIT, [facility], [address], [place], [address], [place] tel:[phone] [facility] sinus (chief complaint) Dietary surveillance and counselingSinusitis , Acute Feb- 4 Jarrod Thomas. [address], [address], [place], [address]. tel:[phone] Referring Provider: William Garay, [address], [place], [address]. tel:[phone] OFFICE/OUTPA TIENT VISIT, [facility], [address], [place], [address], [place] tel:[phone] [facility] chronic pain (chief complaint) HLP (chief complaint) Dietary surveillance and counselingLumbagoPa in in joint involving lower legOther and unspecified hyperlipidemia 4 Jarrod Thomas. [address], [address], [place], [address]. tel:[phone] Referring Provider: William Garay, [address], [place], [address]. tel:[phone] OFFICE/OUTPA TIENT VISIT, [facility], [address], [place], [address], [place] tel:[phone] [facility] chronic pain (chief complaint) HLP (chief complaint) HTN (chief complaint) Dietary surveillance and counselingHypertens ion, UnspecifiedOther and unspecified hyperlipidemiaCHRON IC PAIN NEC Jan- 4 Jarrod Thomas. [address], [address], [place], [address]. tel:[phone] Referring Provider: William Garay [address], [place], [address]. tel:[phone] OFFICE/OUTPA TIENT VISIT, [facility], [address], [place], [address], [place] tel:[phone] [facility] chronic pain (chief complaint) HLP (chief complaint) tobacco (chief complaint) ear infection (chief complaint) Dietary surveillance and counselingCHRONIC PAIN NECOther and unspecified hyperlipidemiaUnspe cified otitis media 4 Jarrod Thomas. [address], [address], [place], [address]. [phone] Referring Provider: [address], [place], [address]. tel:[phone] OFFICE/OUTPA TIENT VISIT, [facility], [address], [place], [address], [phone] [facility] chronic pain (chief complaint) GERD (chief complaint) HLP (chief complaint) Dietary surveillance and counselingCervicalg iaHypertension, UnspecifiedOther and unspecified hyperlipidemiaGERD 4 Jarrod Thomas. [address], [address], [place], [address]. [phone] Referring Provider: [address], [place], [facility]. tel:[phone] OFFICE/OUTPA TIENT VISIT, [facility], [address], [place], [address], [place] [phone] [facility] HLP (chief complaint) HTN (chief complaint) Chronic pain (chief complaint) anxiety (chief complaint) GERD (chief complaint) Dietary surveillance and counselingLumbagoOt her and unspecified hyperlipidemiaGERD 3 Jarrod Thomas. [address], [address], [place], [address]. [phone] Referring Provider: [address], [place], [address]. tel:[phone] OFFICE/OUTPA TIENT VISIT, [facility], [address], [place], [address], [place] tel:[phone] [facility] sick (chief complaint) hematuria (chief complaint) Dietary surveillance and counselingBronchiti s, AcuteOBSTRUCTIVE CHRONIC BRONCHITIS, WITH (ACUTE) EXACERBATIONViral Infection, UnspecifiedHEMATURI A NOS 3 Jarrod Thomas. [address], [address], [place], [address]. tel: [phone] Referring Provider: William Garay, [address], [place], [address]. tel:[phone] OFFICE/OUTPA TIENT VISIT, [facility], [address], [place], [address], tel:[phone] [facility] chronic pain (chief complaint) HTN (chief complaint) Dietary surveillance and counselingCHRONIC PAIN NECHypertension, Unspecified 3 Jarrod Thomas. [address], [address], [place], [address]. [phone] Referring Provider: William Garay [address], [place], [address]. tel:[phone] OFFICE/OUTPA TIENT VISIT, [facility], [address], [place], [address], tel:[phone] [facility] chronic pain (chief complaint) ear pain (chief complaint) Dietary surveillance and counselingLumbagoHy pertension, UnspecifiedOtalgia, unspecified 3 Jarrod Thomas. [address], [address], [place], [address]. [phone] Referring Provider: William Garay, [address], [place], [address]. tel:[phone] OFFICE/OUTPA TIENT VISIT, [facility], [address], [place], [address], [place] tel:[phone] [facility] chronic pain (chief complaint) HLP (chief complaint) asthma (chief complaint) LumbagoAsthmaHypert ension, UnspecifiedOther and unspecified hyperlipidemiaDieta ry surveillance and counseling Sep2 0 3 Jarrod Thomas. [address], [address], [place], [address]. [phone] Referring Provider: William Garay, [address], [place], [address]. tel:[phone] OFFICE/OUTPA TIENT VISIT, [facility], [address], [place], [address], tel:[phone] [facility] chronic pain (chief complaint) otalgia (chief complaint) HLP (chief complaint) rash (chief complaint) Dietary surveillance and counselingCHRONIC PAIN NECOtalgia, unspecifiedHyperten surya, UnspecifiedScabies 3 Jarrod Thomas. [address], [address], [place], [address]. tel:[phone] Referring Provider: William Garay, [address], [place], [address]. tel:[phone] OFFICE/OUTPA TIENT VISIT, [facility], [address], [place], [address], tel:[phone] [facility] chronic pain (chief complaint) lung nodule (chief complaint) HLP (chief complaint) ear pain (chief complaint) Dietary surveillance and counselingCHRONIC PAIN NECAsthmaOtalgia, unspecified 3 Jarrod Thomas. [address], [address], [place], [address]. tel:[phone] Referring Provider: [address], [place], [address]. tel:[phone] OFFICE/OUTPA TIENT VISIT, [facility], [address], [place], [address], [place] tel:[phone] [facility] chronic pain (chief complaint) epipen (chief complaint) Dietary surveillance and counselingCHRONIC PAIN NECLumbagoCervicalg ia 3 Jarrod Thomas. [address], [place], [address]. tel:[phone] Referring Provider: [address], [place], [address]. tel:[phone] OFFICE/OUTPA TIENT VISIT, [facility], [address], [place], [address], [place] tel:[phone] [facility] HLP (chief complaint) vitamin d (chief complaint) HTN (chief complaint) lung nodule (chief complaint) Dietary surveillance and counselingOther and unspecified hyperlipidemiaUnspe cified vitamin d deficiencyOther diseases of lung, not elsewhere classified 3 Jarrod Thomas. [address], [address], [place], [address]. tel:[phone] Referring Provider: William Garay, [address], [place], [address]. tel:[phone] PREV VISIT, NEW, AGE 40-64 [facility], [address], [place], [place], [facility], tel:[phone] [facility] PHysical (chief complaint) Dietary surveillance and counselingRoutine Medical ExamRoutine Medical Exam 3 Jarrod Thomas. [address], [address], [place], [address]. tel:[phone] Referring Provider: William Garay [address], [place], [address]. tel:[phone] Family History Family Member Type Diagnosis Age At Onset Sister Problem (finding) thyroid Mother Problem (finding) bleeding stomach ulcer Father Problem (finding) Unknown Disease Payers Payer name Insurance type Covered constitution party ID Authoriza tion(s) No Information Social History Type Description Quantity Date Captured Comments Sex Female Smoking Status No Information Chief Complaint And Reason For Visit No Information Plan Of Treatment Date Type Action Status Goal Depression screening. Due on due Goal FOBT. Due on due Goal Influenza vaccine. Due on due Goal Pap/HPV testing. Due on due Goal Sigmoidoscopy. Due on due Goal Td vaccine. Due on 15 due Goal Tdap. Due on due Goal Special diet education compl eted Goal Tobacco cessation counseling completed Goal Tobacco cessation counseling completed Goal Tobacco cessation counseling completed Goal Tobacco cessation counseling completed Goal Tobacco cessation counseling completed Goal Tobacco cessation counseling completed Goal Tobacco cessation counseling completed Goal Tobacco cessation counseling completed Goal Tobacco cessation counseling completed Goal Tobacco cessation counseling completed Goal Tobacco cessation counseling completed Goal Tobacco cessation counseling completed Goal Tobacco cessation counseling completed Goal Tobacco cessation counseling completed Goal Tobacco cessation counseling completed Goal Tobacco cessation counseling completed Goal Tobacco cessation counseling completed Goal Tobacco cessation counseling completed Goal Tobacco cessation counseling completed Goal Tobacco cessation counseling completed Goal Tobacco cessation counseling completed Goal Tobacco cessation counseling completed Goal Tobacco cessation counseling completed Goal Tobacco cessation counseling completed Goal Tobacco cessation counseling completed Goal Tobacco cessation counseling completed Referral Ordered: Neurology (related to Other encephalopathy) ordered Referral Ordered: Referrals: Neurology. Evaluate and treat ordered Referral Ordered: US CAROTID ordered Referral Ordered: DOPPLER ECHO EXAM, HEART ordered Referral Ordered: Neurosurgery ordered Referral Ordered: Neurosurgery ordered Referral Ordered: Referral: Neurosurgery. ordered Referral Ordered: MRI BRAIN W/O & W/DYE ordered Referral Ordered: OPERATIVE UPPER GI ENDOSCOPY ordered Referral Ordered: Ortho Surg (related to Pain in joint involving lower leg) ordered Referral Ordered: CARDIOVASCULAR STRESS TEST ordered Referral Ordered: Referral: Ortho Surg. ordered Referral Ordered: KNEE XRAY TWO-VIEW ordered Referral Ordered: Referral: Plastic Surg. ordered Referral Ordered: Vascular Surgery (related to PVD with Claudication) ordered Referral Ordered: SENSE NERVE CONDUCTION TEST ordered Referral Ordered: Referral: Vascular Surgery. Evaluate and treat. ordered Referral Ordered: US ARTERIAL DOPPLER Bilateral leg ordered Referral Ordered: Referral: Pain Management. ordered Referral Ordered: UPPER GI W/ KUB ordered Referral Ordered: MRI LUMBAR SPINE W/DYE ordered Referral Ordered: Referral: Otolaryngology. ordered Referral Ordered: CT THORAX W/O DYE ordered Referral Ordered: COLONOSCOPY AND BIOPSY ordered Referral Ordered: CHEST X-RAY PA/LAT TWO-VIEWS ordered Referral Ordered: MAMMOGRAM, SCREENING ordered History Of Present Illness Encounter Date Complaint History Of Prese nt Illness Anxiety Additional infor mation: Pt has chornic anxiety and depression. Pt tkaes zac and joonx from psychiatry. Pt doing ok. back pain Additional infor mation: Pt has chornic LBP pt denies any loss of bowel or bladder cotnrol. HLP Pt has HLP Pt ta kse pravastatin. Pt denies any myalgia PRES Pt underwent lef t endarectomy recently and she suffered posterior reversible encephalopathy syndrome. No CVA Pt was admited to hospital for several days. Pt denies any headache now. Pt is seeing Dr. Gutierrez and also neurology .Pt feels fine now Instructions Date Instruction Additional Infor mation Special diet education Related t o Dietary surveillance and counseling Prescribed activity/ exercise education Related to Dietary surveillance and counseling Physical activity counseling Rel ated to Dietary surveillance counseling Decrease caloric intake Related to Dietary surveillance counseling Decrease caloric intake Related to Dietary surveillance counseling Physical activity counseling Rel ated to Dietary surveillance counseling Physical activity counseling Rel ated to Dietary surveillance counseling Decrease caloric intake Related to Dietary surveillance counseling Decrease caloric intake Related to Dietary surveillance counseling Physical activity counseling Rel ated to Dietary surveillance counseling Physical activity counseling Rel ated to Dietary surveillance counseling Decrease caloric intake Related to Dietary surveillance counseling Physical activity counseling Rel ated to Obesity unspecified, BMI 30-39 Decrease caloric intake Related to Obesity unspecified, BMI 30-39 Dietary counseling Related to Di etary surveillance counseling Decrease caloric intake Related to Dietary surveillance counseling Dietary counseling Related to Di etary surveillance counseling Decrease caloric intake Related to Dietary surveillance counseling Decrease caloric intake Related to Dietary surveillance counseling Dietary counseling Related to Di etary surveillance counseling Dietary counseling Related to Di etary surveillance counseling Decrease caloric intake Related to Dietary surveillance counseling Dietary counseling Related to Di etary surveillance counseling Decrease caloric intake Related to Dietary surveillance counseling Dietary counseling Related to Di etary surveillance counseling Decrease caloric intake Related to Dietary surveillance counseling Dietary counseling Related to Di etary surveillance counseling Decrease caloric intake Related to Dietary surveillance counseling Dietary counseling Related to Di etary surveillance counseling Decrease caloric intake Related to Dietary surveillance counseling Dietary counseling Related to Di etary surveillance counseling Decrease caloric intake Related to Dietary surveillance counseling Dietary counseling Related to Di etary surveillance counseling Decrease caloric intake Related to Dietary surveillance counseling Dietary counseling Related to Di etary surveillance counseling Decrease caloric intake Related to Dietary surveillance counseling Dietary counseling Related to Di etary surveillance counseling Decrease caloric intake Related to Dietary surveillance counseling Dietary counseling Related to Di etary surveillance counseling Decrease caloric intake Related to Dietary surveillance counseling Dietary counseling Related to Di etary surveillance counseling Decrease caloric intake Related to Dietary surveillance counseling Dietary counseling Related to Di etary surveillance counseling Decrease caloric intake Related to Dietary surveillance counseling Dietary counseling Related to Di etary surveillance counseling Decrease caloric intake Related to Dietary surveillance counseling Dietary counseling Related to Di etary surveillance counseling Decrease caloric intake Related to Dietary surveillance counseling Dietary counseling Related to Di etary surveillance counseling Decrease caloric intake Related to Dietary surveillance counseling Decrease caloric intake Related to Dietary surveillance counseling Dietary counseling Related to Di etary surveillance counseling Dietary counseling Related to Di etary surveillance counseling Decrease caloric intake Related to Dietary surveillance counseling Decrease caloric intake Related to Dietary surveillance counseling Dietary counseling Related to Di etary surveillance counseling Dietary counseling Related to Di etary surveillance counseling Decrease caloric intake Related to Dietary surveillance counseling Assessments Type Assessment Date No Information
--- OUTSIDE RECORDS SUMMARY | 2024-11-12 05:08 | XMS_ITS | Encounter Summary ---
Author Organization [facility] Healthcare Address [address] [place] [address] Care Team Providers Care Boiler Shop Mechanic Name Role Phone Deisi Andrews MD Primary Care Provider + Reason for Visit * Reason Onset Date Comments Repatha 01/20/2024 Encounter Details Date Type Department Care Team (Late st Contact Info) Description 01/20/2024 Telephone [facility] Medical Group Cardiology [address] [place] [id number] Mary Blum MA Repatha Social History Tobacco Use Types Packs/Day Years [...] often do you attend chur ch or buddhism services? 1 to 4 times per year 04/14/2023 Do you belong to any clubs o r organizations such as mandaen groups, unions, fraternal or athletic groups, or [...] No 04/14/2023 Housing Stability Vital Sign Answer Murpyh e Recorded In the last 12 months, [...] place to sleep or slept in a care home (including now)? No 04/14/2023 Personal Safety Answer Date Recorded Have you ever been in or are you currently in a harmful physical or emotional relationship or is someone making you feel afraid or unsafe? Denies 04/13/2023 Comments Unknown Sex and Gender Information Value Date Recorded Sex Assigned at Not on file Legal Sex Female 7:48 PM GARBAGE PERSON Gender Identity Not on file Sexual Orientation Not on file documented as of this encounter Ordered Prescriptions Prescription Sig Dispense Quantity Refills Last Filled Start Date End Date evolocumab (Repatha SureClick) 140 mg/mL pen injector Inject 1 mL (140 mg total) under the skin every 14 (fourteen) days 2 mL 11 02/02/2024 documented in this encounter Miscellaneous Notes * Addendum Note - Deangelo Burnett RN - 02/02/2024 1:46 PM CDTAddended by: DEANGELO BURNETT on: 02/02/2024 01:46 PM Modules accepted: Orders * Telephone Encounter - Deangelo Burnett RN - 02/02/2024 1:44 PM CDT Approved from 02/01/24-01/31/25. * Telephone Encounter - Deangelo Burnett RN - 02/01/2024 11:20 AM CDT Repatha Auth submitted for patient through cover my meds. Waiting for insurance approval. Will get called in for patient once approved. * Telephone Encounter - Deangelo Burnett RN - 01/28/2024 6:45 PM CDT Will get patient started on Repatha. Will call patient Wednesday to see if she needs us to call it in for her and do the prior auth, and where she would like it to go. Will offer it to be delivered to her house by sandra in [place]. If not will work on PA myself and send to her preferred pharmacy. Will make sure pt has updated lipid panel within the past 90 days for auth purposes. Added pt to my pcsk9 epic list. Will call pt on Wednesday. * Telephone Encounter - Mary Blum MA - 01/20/2024 9:[address] Blevins saw pt today and states her repatha was prescribed by her previous car rental agent. Is is asking if you can take care of it for her Thank you! AGE PERSON documented in this encounter Plan of Treatment Not on file documented as of this encounter Visit Diagnoses Not on filedocumented in this encounter Discontinued Medications Medication Sig Discontinue Reason Start Date End Da te evolocumab (Repatha SureClick) 140 mg/mL pen injector Reorder 05/29/2022 02/02/2024 documented as of this encounter Care Teams Boiler Shop Mechanic Relationship Specialty Start Date End Date Deisi Andrews MD [address] [place] [address] [address] [place] [address] PCP - General Family Medicine 04/14/23 documented as of this encounter
--- OUTSIDE RECORDS SUMMARY | 2024-11-12 05:08 | XMS_ITS | Encounter Summary ---
Author Organization [facility] Healthcare Address [address] [place] [address] Care Team Providers Care Podiatric Physician Name Role Phone Deisi Andrews MD Primary Care Provider + Encounter Details Date Type Department Care Team (Late st Contact Info) Description 11/01/[address] [facility] Medical Group Cardiology [address] [place] [address] Kely Moran NP [address] [place] [address] Social History Tobacco Use Types Packs/Day [...] often do you attend chur ch or uatsdin services? 1 to 4 times per year 04/14/2023 Do you belong to any clubs o r organizations such as samaritan groups, unions, fraternal or athletic groups, or [...] place to sleep or slept in a assisted (including now)? No 04/14/2023 Personal Safety Answer Date Recorded Have you ever been in or are you currently in a harmful physical or emotional relationship or is someone making you feel afraid or unsafe? Denies 04/13/2023 Comments Unknown Sex and Gender Information Value Date Recorded Sex Assigned at Not on file Legal Sex Female 7:48 PM INDUSTRIAL COOK Gender Identity Not on file Sexual Orientation Not on file documented as of this encounter Plan of Treatment Not on file documented as of this encounter Procedures Procedure Name Priority Date/Time Associated Diagnosis Comments CARDIOLOGY DOCUMENT SCAN Routine 023 10:07 AM INDUSTRIAL COOK documented in this encounter Results * Cardiology Document Scan (10/28/2023 10:07 AM INDUSTRIAL COOK) Anatomical Region Laterality Modality Other Kely Moran CHILD CARE SPECIALIST CV CARDIAC SERVICES PROCEDUR ES Final Result documented in this encounter Visit Diagnoses Not on filedocumented in this encounter Care Teams Podiatric Physician Relationship Specialty Start Date End Date Deisi Anderws MD [address] [place] [id number] PCP - General Family Medicine 04/14/23 documented as of this encounter
--- OUTSIDE RECORDS SUMMARY | 2024-11-12 05:08 | XMS_ITS | Encounter Summary ---
Author Organization [facility] Healthcare Address [address] [place] [address] Care Team Providers Care Door Repairer Bus Name Role Phone Deisi Andrews MD Primary Care Provider + Encounter Details Date Type Department Care Team (Late st Contact Info) Description 11/18/2023 Telephone [facility] Medical Group Cardiology [address] [place] [address] Kely Moran, KATHERINE [address] [place] [address] Social History Tobacco Use Types [...] often do you attend chur ch or restoration services? 1 to 4 times per year 04/14/2023 Do you belong to any clubs o r organizations such as christianity groups, unions, fraternal or athletic groups, or [...] place to sleep or slept in a nursing home (including now)? No 04/14/2023 Personal Safety Answer Date Recorded Have you ever been in or are you currently in a harmful physical or emotional relationship or is someone making you feel afraid or unsafe? Denies 04/13/2023 Comments Unknown Sex and Gender Information Value Date Recorded Sex Assigned at Not on file Legal Sex Female 7:48 PM SCRAP WORKER Gender Identity Not on file Sexual Orientation Not on file documented as of this encounter Miscellaneous Notes * Telephone Encounter - Mary Mosqueda RN - 11/18/2023 9:47 AM SCRAP WORKER Pt scheduled for EKG tomorrow, will discuss scheduling appts with Dr. Edmonds and f/u with [facility] when pt is here for her EKG. P WORKER * Telephone Encounter - Mary Mosqueda RN - 11/18/2023 9:06 AM SCRAP WORKER Message below from CK. Patient is sent to the emergency room yesterday from clinic for AFib RVR. She converted to sinus rhythm in the ER after 1 dose of IV diltiazem. Dr. Geronimo sent her home from the emergency department with an increased dose of sotalol 120 mg b.i.d.. Please call her and have her come in tomorrow fora repeat EKG and send referral to Dr. Edmonds for Afib. Please also make sure she has follow-up in our office (I think she is an [facility] patient) in 4-6 weeks. Thank you! P WORKER documented in this encounter Plan of Treatment Not on file documented as of this encounter Procedures Procedure Name Priority Date/Time Associated Diagnosis Comments ECG 12-LEAD Routine 11/17/2023 Paroxysmal atrial fibrillation (CMS/HCC) (HCC) documented in this encounter Results * ECG 12 lead (11/17/2023) Kely Moran NP ECG ORDERABLES Final Result documented in this encounter Visit Diagnoses Diagnosis Paroxysmal atrial fibrillation (CMS/HCC) (HCC)- Primary Atrial fibrillation documented in this encounter Care Teams Door Repairer Bus Relationship Specialty Start Date End Date Deisi Andrews MD [address] [place] [address] [address] [place] [address] PCP - General Family Medicine 04/14/23 documented as of this encounter
--- OUTSIDE RECORDS SUMMARY | 2024-11-12 05:08 | XMS_ITS | Encounter Summary ---
Author Organization [facility] Address [address] [place] [address] Care Team Providers Care Formula Weigher Name Role Phone Provider, Abstract Primary Care Provider Unavail able Reason for Visit * Reason Comments Establish Care Encounter Details Date Type Department Care Team (Late st Contact Info) Description 04/05/2019 2:45 PM CDT Office Visit [facility] Oncology and Hematology - [place] [address] [facility] [address] [place] [address] Juan Ricardo MD [address] [facility] [address] [place] [address] False vocal cord lesion (Primary Dx); Lesion of vocal cord Social History Tobacco Use Types Packs/Day Years [...] Sign Reading Time Taken Comments Blood Pressure 97/55 04/05/2019 2:53 PM CDT Pulse 85 04/05/2019 2:53 PM CDT Temperature 36.9 ??C (98.4 ??F) 04/05/2019 2:53 PM CD T Respiratory Rate 18 04/05/2019 2:53 PM CDT Oxygen Saturation 97% 04/05/2019 2:53 PM CDT Inhaled Oxygen Concentration - - Weight 88.9 kg (196 lb) 04/05/2019 2:53 PM CDT Height 160 cm (5' 3 ) 04/05/2019 2:53 PM CDT Body Mass Index 34.72 04/05/2019 2:53 PM CDT documented in this encounter Progress Notes * Juan Ricardo MD - 04/05/2019 4:39 PM CDT Hematology-oncology consult Note Requesting Physician BRIANA Nair Primary Care Physician Provider, Abstract Stl Problem list There is no problem list on file for this patient. Previous TREATMENT ? Measurable Disease ? Reason for Visit Rody Zaidi is a 58 y.o. female who was referred for consultation for vocal cord lesion. History of present illness This is a 58-year-old obese female with [...] now quit smoking on March 21, 2019. Past Medical History Past Medical History: Diagnosis Date ??? Asthma ??? COPD (chronic obstructive pulmonary disease) ??? Depression ??? Diabetes ??? Diabetes mellitus ??? Diverticulitis ??? HTN (hypertension) ??? Hyperlipidemia ??? Stroke Surgical History Past Surgical History: Procedure Laterality Date ??? DESTRUCTION OF LESION anal ??? HX CHOLECYSTECTOMY ??? HX FREE SKIN GRAFT left great toe Medications Current Outpatient Medications Medication Sig Dispense Refill ??? albuterol HFA 90 mcg inhaler Take 2 Puffs by inhalation every 6 hours as needed for Shortness of Breath. ??? ALPRAZolam (XANAX) 1 mg tablet Take 1 mg by mouth 4 times daily as needed for Anxiety. ??? amLODIPine (NORVASC) 5 mg tablet Take 5 mg by mouth daily. ??? aspirin (ECOTRIN EC) 81 mg Tablet, Delayed Release (E.C.) Take 81 mg by mouth daily. ??? cholecalciferol 50,000 unit Capsule Take 50,000 Units by mouth every 7 days. ??? cromolyn (CROLOM) 4 % solution Administer 1 Drop in both eyes 2 times daily. ??? esomeprazole (NexIUM) 40 mg Capsule, Delayed Release(E.C.) Take 40 mg by mouth daily before breakfast. ??? ezetimibe (ZETIA) 10 mg tablet Take 10 mg by mouth daily. ??? FLUoxetine (PROzac) 40 mg capsule Take 40 mg by mouth daily. ??? furosemide (LASIX) 40 mg tablet Take 40 mg by mouth daily. ??? isosorbide mononitrate (IMDUR) 30 mg Extended Release 24 hour tablet Take 30 mg by mouth daily awning installer. ??? losartan (COZAAR) 100 mg tablet Take 100 mg by mouth daily. ??? metFORMIN (GLUCOPHAGE) 500 mg tablet Take 500 mg by mouth 2 times daily with meals. ??? metoprolol tartrate (LOPRESSOR) 25 mg tablet Take 25 mg by mouth daily. ??? montelukast (SINGULAIR) 5 mg Tablet, Chewable Take 5 mg by mouth daily. ??? nicotine (NICODERM CQ) 14 mg/24 hr patch Apply 1 Patch to skin as directed every 24 hours. ??? promethazine (PHENERGAN) 25 mg tablet Take 25 mg by mouth every 6 hours as needed for Nausea/Emesis. ??? raNITIdine (ZANTAC) 150 mg tablet Take 150 mg by mouth 2 times daily. ??? rosuvastatin (CRESTOR) 20 mg tablet Take 20 mg by mouth daily at bedtime. ??? traZODone (DESYREL) 50 mg tablet Take 50 mg by mouth daily at bedtime. ??? nitroglycerin (NITROSTAT) 0.4 mg Tablet, Sublingual Place 0.4 mg under tongue every 5 minutes as needed for Chest Pain. No current facility-administered medications for this visit. Allergies Allergies Allergen Reactions ??? Codeine Nausea and Vomiting ??? Halcion [Triazolam] Other (See Comments) Drawn up face ??? Haloperidol Other (See Comments) Facial tightening ??? Penicillins Other (See Comments) Red face and repeating words ??? Risperidone Other (See Comments) Facial drawn up/tightening ??? Simvastatin Other (See Comments) Cant walk, leg pain and cramping ??? Wasp Sting [Venom-Wasp] Anaphylaxis Immunizations: There is no immunization history on file for this patient. Family History Family History Problem Relation Name Age of Onset ??? Heart Disease Father ??? Other Father ??? Other Mother ??? Other Brother ??? Lung Cancer Sister ??? Cancer Sister ??? Healthy Sister ??? Other Sister Social History Social History Tobacco Use ??? Smoking status: Former Smoker Packs/day: 1.50 Years: 42.00 Pack years: 63.00 Types: Cigarettes Last attempt to quit: 03/21/2019 Years since quittin.0 Substance Use Topics ??? Alcohol use: Yes Comment: rarely Review of Systems Constitutional: No fever; no night sweats; no anorexia; 15 pound weight loss in 6 months, complain of tiredness and fatigue NEENT: No headache; no change in vision; no change in hearing; no sore throat; no dysphagia Respiratory: Complain of shortness of breath; no pleuritic chest pain; no cough; no hemoptysis Cardiac: No cardiac-like chest pain; no palpitations; no orthopnea; no PND; complain of dyspnea on exertion Breasts: No tenderness; no masses GI: No abdominal pain; no nausea; no vomiting; no diarrhea; no hematochezia; no melena : No dysuria; no frequency; no hesitancy; no hematuria EXCHANGE MECHANIC: Musculosketetal: no bone pain; no arthralgia; no joint swelling; no myalgia; Skin: no pruritis; no rash; no petechiae; no ecchymoses Endocrine: no polydipsia; no polyuria; no unusual weight gain Neuro: No headache; no change in vision; no sensory changes; no muscle weakness; no confusion; no seizures Psych: no anxiety; no depression; Physical Exam Vitals: As per nursing note Constitutional: Well developed, well nourished, no acute distress, non-toxic appearance Teeth and gum. No signs of infection or swelling. Eyes: PERRL, conjunctiva normal HEENT: Atraumatic, external ears normal, nose normal, oropharynx moist, no pharyngeal exudates. no sinus tenderness Neck- normal range of motion, no tenderness, supple Respiratory: No respiratory distress, normal breath sounds, no rales, no wheezing Cardiovascular: Normal rate, normal rhythm, no murmurs, no gallops, no rubs GI: Soft, nondistended, normal bowel sounds, nontender, no splenomegaly, no hepatomegaly, no mass, no rebound, no guarding : No costovertebral angle tenderness Musculoskeletal: No edema, no tenderness, no deformities. Back- no tenderness Integument: Well hydrated, no rash, Digits and nails inspection normal Lymphatic: No lymphadenopathy noted Neurologic: Alert & oriented x 3, CN 2-12 normal, normal motor function, normal sensory function, no focal deficits noted Psychiatric: Speech and behavior appropriate ? labs No results found for this or any previous visit (from the past 24 hour(s)). Pathology ? Imaging & Other Studies Performance Status? Assessment / Plan: Vocal cord lesion. Patient was seen by Dr. Mattson and ENT service about a month ago and was found to have vocal cord lesion. On my limited examination I was not able to see any pathology in the mouth. Patient got admitted to the hospital on March 28 with nausea and vomiting and could not keep follow-up appointment with the ENT. Patient had CT neck and chest done on March 02 that showed no cervical or thoracic lymphadenopathy. There was subacute right seventh and eighth rib fractures with hepatic steatosis and hepatomegaly and mild emphysema. Patient also had EGD done on March 30 that showed gastritis and duodenitis. On my examination there is no evidence of neck lymphadenopathy. Patient has appointment with Dr. Mattson on April 28. I will see her back after her appointment with the ENT todiscuss the pathology report and further recommendations. No further work-up is required at this time until final diagnosis is confirmed. Type 2 diabetes. Patient is on Glucophage. COPD. Patient has been using albuterol inhaler as needed. Hypertension. Patient is on Norvasc. This has been managed by the primary care physician. Gastroesophageal reflux disease. Patient is on Nexium. Dr. Cordova has been monitoring patient. Thank you very much for allowing me to participate in Rody Zaidi's evaluation and management. Please feel free to contact if I can be of any further assistance in your patient???s care requiring hematology or oncology evaluation. Sincerely, ? ? Juan Ricardo M.D. cell ? TOBACCO COUNSELING She is not a tobacco user. Juan Ricardo MD ,04/05/2019 4:39 PM ? Total time spent 80 minutes, two third of the total time spent counseling patient [id number]. CC:BRIANA Nair? documented in this encounter Plan of Treatment Not on file documented as of this encounter Visit Diagnoses Diagnosis False vocal cord lesion- Primary Other diseases of vocal cords Lesion of vocal cord Other diseases of vocal cords documented in this encounter Care Teams Formula Weigher Relationship Specialty Start Date End Date Provider, Abstract NO ADDRESS ON FILE PCP - General 03/24/19 documented as of this encounter
--- OUTSIDE RECORDS SUMMARY | 2024-11-12 05:08 | XMS_ITS | Encounter Summary ---
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 1 to 4 times per year 04/14/2023 Do you belong to any clubs o r organizations such as congregational groups, unions, fraternal or athletic groups, or [...] on file Legal Sex Female 7:[address] ATTENDANT Gender Identity Not on file Sexual Orientation Not on file documented as of this encounter Last Filed Vital Signs Vital Sign Reading Time Taken Comments Blood Pressure 112/64 01/20/2024 8:[address] ATTENDANT Pulse 67 01/20/2024 8:[address] ATTENDANT Temperature - - Respiratory Rate - - Oxygen Saturation 97% 01/20/2024 8:[address] ATTENDANT Inhaled Oxygen Concentration - - Weight 81.6 kg (179 lb 12.8 oz) 01/20/2024 8:[address] ATTENDANT Height 160 cm (5' 3 ) 01/20/2024 8:[address] ATTENDANT Body Mass Index 31.85 01/20/2024 8:[address] ATTENDANT documented in this encounter Progress Notes * Ed Blevins MD - 01/20/2024 8:30 AM CST Images from the original note were not included. 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 Fib clinically stable in Sinus rhythm with PACs. Continue current medical therapy and systemic anticoagulation for stroke risk reduction. CHADS2 Vasc score 5. On systemic anticoagulation, monitor closely for bleeding as counseled. If significant falls, bleeding, and or head injury go to ER immediately for further evaluation. -continue Eliquis 5mg BID. -continue Metoprolol 50mg BID for now. BP controlled, goal <140/90mmHg. Monitor BP on routine basis. Call with readings. Continue consistent cardiovascular exercise, weight loss, medication compliance, and low-sodium diet. -continue Losartan 100mg daily, Metoprolol 50mg BID Lipids personally reviewed from 01/20/24 LDL 152, not controlled with goal LDL<70. Continue lifestyle modification. Need to resume Repatha as it and continue Zetia 10mg daily and routine lipid monitoring. He is intolerant to statins attempted in the past. No anginal symptoms. Aggressive CAD risk modification counseling performed. Continue current medical therapy. Notify office immediately with anginal symptoms or new limitations. -Continue clopidogrel 75 mg daily indefinitely or until otherwise advised. Monitor for bleeding. -Lexiscan 09/2023 no ischemia EF 69% Lifestyle modification counseling performed. Encouraged to continue consistent weight loss, exercise, reduction in caloric intake. Follow up with vascular for PAD hx. She remains on clopidogrel 75 mg daily. Smoking cessation counseling performed at length. Follow up with PCP for management of DM, Metformin 500mg BID Follow up with sleep medicine for CATHERINE management. She has CPAP but very old machine and she is not using. Discussed benefits re AF, HTN, etc and lifestyle among others. Over 50% of this visit counseling atrial fibrillation, peripheral arterial disease, HTN, lipids, medications, lifestyle modification. Follow up in the office in 2 months or sooner as needed. Thank you for allowing me the privilege of participating in the care this very pleasant patient. Please do not hesitate to contact me with any additional questions or concerns. SHANAE Zaidi is a 63 y.o. female with a PMHx of peripheral arterial disease status post prior intervention, type 2 diabetes mellitus, COPD, hypertension, history of paroxysmal atrial fibrillation, history of CVA, hyperlipidemia seen in routine [...] Zetia 10mg daily. Taking Metoprolol 50mg BID. 01/20/24 Andrés meds no new issues. Still smoking trying to cut down. No bleeding or falls. No CP or newSOB. Denies palps. Referred to sleep med by Dr Edmonds but has not heard back she says. +easy bruising. MEDICAL HISTORY Past Medical History: Diagnosis Date Personal history of other diseases of the digestive system History of esophageal reflux - (Added by LG Conv) Personal history of other diseases of the respiratory system Personal history of asthma - (Added by LG Conv) Personal history of other endocrine, nutritional and metabolic disease History of obesity - (Added by LG Conv) Polyosteoarthritis Generalized osteoarthritis - (Added by LG Conv) SOCIAL HISTORY reports that she has been smoking cigarettes. She has a 30 pack-year smoking history. She does not have any smokeless tobacco history on file. She reports current drug use. Frequency: 2.00 times per week. Drug: Marijuana. Patient denies consuming alcoholic drinks. FAMILY HISTORY family history includes Diabetes in an other family member; Hypertension in an other family member;Lung cancer in an other family member. MEDICATIONS HOME MEDICATIONS : albuterol HFA (PROVENTIL HFA,VENTOLIN HFA,PROAIR HFA) 90 mcg/actuation inhaler clopidogreL (PLAVIX) 75 mg tablet Eliquis 5 mg tablet evolocumab (Repatha SureClick) 140 mg/mL pen injector ezetimibe (ZETIA) 10 mg tablet fexofenadine-pseudoephedrine (SAMANTHA-D 24) 180-240 mg per 24 hr tablet FLUoxetine (PROzac) 40 mg capsule fluticasone propionate (FLONASE) 50 mcg/actuation nasal spray LORazepam (ATIVAN) 0.5 mg tablet losartan (COZAAR) 100 mg tablet metFORMIN (GLUCOPHAGE) 500 mg tablet nitroglycerin (NITROSTAT) 0.4 mg SL tablet sotaloL (BETAPACE) 120 mg tablet traZODone (DESYREL) 50 mg tablet ALPRAZolam (XANAX) 1 mg tablet isosorbide dinitrate (ISORDIL) 40 mg tablet zolpidem (AMBIEN) 10 mg tablet ALLERGIES Allergies Allergen Reactions Penicillins Hives Reaction: Hives, Vmzfsrj-Lvu-Ezi Reductase Inhibitors Muscle pain Venom-Honey Bee Swelling Haldol [Haloperidol] Other (See comments) Facial drooping Risperidone Other (See comments) Dry mouth REVIEW OF SYSTEMS Review of Systems Constitutional: Positive for malaise/fatigue. Negative for decreased appetite, diaphoresis, fever, night sweats, weight gain and weight loss. HENT: Negative for hearing loss and nosebleeds. Eyes: Negative for blurred vision and pain. Cardiovascular: Negative for chest pain, claudication, dyspnea on exertion, irregular heartbeat, leg swelling, near-syncope, orthopnea, palpitations and syncope. Respiratory: Negative for cough, hemoptysis, shortness of breath, snoring and wheezing. Endocrine: Negative for cold intolerance and heat intolerance. Hematologic/Lymphatic: Negative for bleeding problem. Bruises/bleeds easily. Skin: Negative for color change, itching, rash and suspicious lesions. Musculoskeletal: Positive for arthritis and joint pain. Negative for falls, muscle weakness and myalgias. Gastrointestinal: Negative for abdominal pain, heartburn, hematemesis, melena and nausea. Genitourinary: Negative for dysuria, hematuria and nocturia. Neurological: Negative for excessive daytime sleepiness, dizziness, focal weakness, headaches, light-headedness, loss of balance and weakness. Psychiatric/Behavioral: Negative for altered mental status, depression and memory loss. The patientis not nervous/anxious. Allergic/Immunologic: Negative for environmental allergies. All other systems reviewed and are negative. PHYSICAL EXAM Vitals BP 112/64 (BP Location: Right arm, Patient Position: Sitting) Pulse 67 Ht 160 cm (5' 3 ) Wt 81.6 kg (179 lb 12.8 oz) SpO2 97% BMI 31.85 kg/m?? Weight: 81.6 kg (179 lb 12.8 oz) Height: 160 cm (5' 3 ) Body mass index is 31.85 kg/m??. Physical Exam Vitals reviewed. Constitutional: General: She is not in acute distress. Appearance: Normal appearance. She is well-developed. She is obese. She is not diaphoretic. HENT: Head: Normocephalic and atraumatic. Right Ear: External ear normal. Left Ear: External ear normal. Nose: Nose normal. Mouth/Throat: Mouth: Mucous membranes are moist. Dentition: Normal dentition. Eyes: General: Lids are normal. No scleral icterus. Extraocular Movements: Extraocular movements intact. Conjunctiva/sclera: Conjunctivae normal. Neck: Thyroid: No thyromegaly. Vascular: Normal carotid pulses. No carotid bruit, hepatojugular reflux or JVD. Trachea: No tracheal deviation. Cardiovascular: Rate and Rhythm: Normal rate and regular rhythm. Occasional Extrasystoles are present. Pulses: Normal pulses and intact distal pulses. No decreased pulses. Heart sounds: S1 normal and S2 normal. Heart sounds not distant. Murmur heard. Medium-pitched early systolic murmur is present with a grade of 3/6. No friction rub. No gallop. No S3 or S4 sounds. Pulmonary: Effort: Pulmonary effort is normal. No respiratory distress. Breath sounds: Normal breath sounds. No wheezing or rales. Chest: Chest wall: No tenderness. Abdominal: General: Bowel sounds are normal. There is no distension. Palpations: Abdomen is soft. There is no mass. Tenderness: There is no abdominal tenderness. There is no guarding or rebound. Musculoskeletal: General: No tenderness or deformity. Normal range of motion. Cervical back: Normal range of motion and neck supple. Right lower leg: No edema. Left lower leg: No edema. Lymphadenopathy: Cervical: No cervical adenopathy. Skin: General: Skin is warm and dry. Coloration: Skin is not pale. Findings: Bruising present. No ecchymosis, erythema, petechiae or rash. Nails: There is no clubbing. Neurological: General: No focal deficit present. Mental Status: She is alert and oriented to person, place, and time. Mental status is at baseline. Cranial Nerves: No cranial nerve deficit. Motor: No abnormal muscle tone. Coordination: Coordination normal. Psychiatric: Mood and Affect: Mood normal. Speech: Speech normal. Behavior: Behavior normal. Behavior is cooperative. Thought Content: Thought content normal. Judgment: Judgment normal. LABS AND OTHER DIAGNOSTIC TESTS Lab Results Component Value Date SODIUM 139 04/13/2023 POTASSIUM 4.4 04/13/2023 CO2 24 04/13/2023 BUNSER 28 (H) 04/13/2023 GLUCOSE 154 04/13/2023 CREATININE 0.85 04/13/2023 CALCIUM 9.4 04/13/2023 CHLORIDE 104 04/13/2023 ALBUMIN 4.0 04/13/2023 ALT 13 04/13/2023 AST 12 04/13/2023 ALKPHOS 99 04/13/2023 BILITOT 0.2 04/13/2023 PROT 6.8 04/13/2023 WBC 9.5 04/13/2023 HGB 13.1 04/13/2023 Lab Results Component Value Date POCCHOL 206 08/27/2023 POCHDL 34 08/27/2023 POCTRIG 294 08/27/2023 POCLDL 113 08/27/2023 POCNONHDL 171 08/27/2023 POCCHLPL 206 08/27/2023 Results for orders placed or performed in visit on 08/27/23 POCT lipid panel Result Value Ref Range Cholesterol, POC 206 mg/dL HDL, POC 34 mg/dL Triglycerides, POC 294 mg/dL LDL, Direct, POC 113 mg/dL Chol/HDL Ratio, POC 3.3 Non-HDL Cholesterol, POC 171 mg/dL Cholesterol Total, POC 206 mg/dL 08/07/2023 2D echo [facility]: EF 60 65% grade 1 diastolic dysfunction mild MR/TR, normal left atrial size and LV wall thickness 09/17/23 Lexiscan: CONCLUSIONS: No diagnostic ST changes. Global left ventricular function is normal. Left ventricular ejection fraction is 69 %. Myocardial perfusion imaging is normal. Recommend follow up with chairman & ceo. I have personally reviewed and analyzed EKG, electronic medical record, and bloodwork/lipids. Tomer Blevins MD, [facility] This note is dictated and transcribed using 6connect Direct Software. Drip Pumper variancesmay occur. Despite proofreading, typographical errors may occur. 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 documented in this encounter Results * POCT lipid panel (01/20/2024 9:[address] ATTENDANT) Cholesterol, POC 236 mg/dL Comment:GLU = 134 HDL, POC 38 mg/dL Triglycerides, POC 231 mg/dL LDL Cholesterol POC 152 mg/dL Chol/HDL Ratio, POC 4.0 Non-HDL Cholesterol, POC 198 mg/dL Cholesterol Total, POC 236 mg/dL Capillary blood 01/20/2024 9 :[address] ATTENDANT Ed Blevins MD POINT OF CARE TEST ORDER JENNIFER Final Result documented in this encounter Visit Diagnoses Diagnosis 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- Primary Paroxysmal atrial fibrillation (CMS/HCC) (HCC) Atrial fibrillation Hypertension associated with diabetes (HCC) Unspecified essential hypertension Statin myopathy 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 (HCC) CATHERINE on CPAP Chronic anticoagulation Encounter for long-term (current) use of anticoagulants Current smoker History of CVA (cerebrovascular accident) Transient ischemic attack (TIA), and cerebral infarction without residual deficits documented in this encounter Discontinued Medications Medication Sig Discontinue Reason Start Date End Da te ALPRAZolam (XANAX) 1 mg tablet Take 1 tablet (1 mg total) by mouth nightly as needed for anxiety Therapy completed 01/20/2024 isosorbide dinitrate (ISORDIL) 40 mg tablet Take 50 mg by mouth daily Therapy completed 01/20/2024 zolpidem (AMBIEN) 10 mg tabletIndications:Sleep- Onset Insomnia Take 1 tablet (10 mg total) by mouth nightly as needed for sleep Therapy completed 01/20/2024 documented as of this encounter Care Teams Supervisor Case Loading Relationship Specialty Start Date End Date Deisi Andrews MD [address] [place] [id number] PCP - General Family Medicine 04/14/23 documented as of this encounter
--- OUTSIDE RECORDS SUMMARY | 2024-11-12 05:08 | XMS_ITS | Clinical Summary ---
Author Organization [facility] [facility] Address [address] [place] [address] Care Team Providers Care Immigration Investigator Name Role Phone Deisi Andrews MD Primary Care Provider + Allergies Active Allergy Reactions Criticality Noted Date Comments Haloperidol Other (See comments) Low 04/13/2023 Facial drooping Penicillins Hives High Reaction: Hives, Risperidone Other (See comments) Low 04/13/2023 Dry mouth Ekmwkoy-Cuh-Dix Reductase Inhibitors Muscle pain Medium 08/27/2023 Pt [...] 01/21/2023 04/13/2023 Coronary artery disease invo lving deering coronary artery of deering heart without angina pectoris 10/24/2020 04/13/2023 Anxiety [...] Date Resolved Date Hyperlipidemia, mixed 03/22/2017 04/13/20232023 Surgical History Surgery Date Site/Laterality Comments [place] CHOLECYSTECTOMY Cholecystectomy - (Added by TW Conv) [place] DELIVERY ONLY Section - (Added by TW Conv) [place] LIG/TRNSXJ FLP TUBE ABDL/ VAG APPR UNI/BI Tubal Ligation - (Added by TW Conv) OTHER SURGICAL HISTORY 01/17/2024 bladder procedure at [facility] Medical History Medical History Date Comments Personal history of other di seases of the respiratory system Personal history of asthma - (Added by TW Conv) Polyosteoarthritis Generalized o steoarthritis - (Added by TW Conv) Personal history of other di seases of the digestive system History of esophageal reflux - (Added by TW Conv) Personal history of other en docrine, nutritional and metabolic disease History of obesity - (Added by TW Conv) Family History Medical History [facility]ation Name Comments [facility]) Hypertension Other Hypertension - (Added by TW Conv) Lung cancer Other Malignant Lung Neoplasm - (Added by TW Conv) Relation Name Status Comments Other Social History Tobacco Use Types Packs/Day [...] often do you attend chur ch or oriental orthodox services? 1 to 4 times per year 04/14/2023 Do you belong to any clubs o r organizations such as confucianism groups, unions, fraternal or athletic groups, or [...] place to sleep or slept in a senior care (including now)? No 04/14/2023 Personal Safety Answer Date Recorded Have you ever been in or are you currently in a harmful physical or emotional relationship or is someone making you feel afraid or unsafe? Denies 04/13/2023 Comments Unknown Sex and Gender Information Value Date Recorded Sex Assigned at Not on file Legal Sex Female 7:48 PM ADMINISTRATIVE INTERN Gender Identity Not on file Sexual Orientation Not on file Obstetrics History Last Filed Vital Signs Vital Sign Reading Time Taken Comments Blood Pressure 112/64 01/20/2024 8:27 AM ADMINISTRATIVE INTERN Pulse 67 01/20/2024 8:27 AM ADMINISTRATIVE INTERN Temperature 36.3 ??C (97.3 ??F) 04/14/2023 1 1:23 AM CDT Respiratory Rate 16 12/16/2023 8:10 AM ADMINISTRATIVE INTERN Oxygen Saturation 97% 01/20/2024 8:27 AM ADMINISTRATIVE INTERN Inhaled Oxygen Concentration - - Weight 81.6 kg (179 lb 12.8 oz) 01/20/2024 8:27 AM ADMINISTRATIVE INTERN Height 160 cm (5' 3 ) 01/20/2024 8:27 AM ADMINISTRATIVE INTERN Body Mass Index 31.85 01/20/2024 8:27 AM ADMINISTRATIVE INTERN Plan of Treatment Health Maintenance Due Date Last Done Comments Albumin Creatinine Ratio, Urine 1961 Cervical Cancer Screening 1961 Colon Cancer Screening-Colonoscopy 1961 Depression Screening 1961 Hemoglobin A1C 1961 Hepatitis C Screening 1961 Dilated Eye Exam 1961 Foot Exam 1961 Hepatitis B Screening 1979 Regular Well Visit/Exam 18-64 1979 Lung Cancer Screening 2011 Zoster Vaccine (1 of 2) 2011 Breast Cancer Screening-Mammogram 10/23/2022 021 eGFR 04/13/2024 04/13/2023 Covid-19 Vaccine (2023-2 5 season) 2024 03/13/2021, 02/17/2021, 02/06/2021 Influenza Vaccine (#1) 2024 2, 01/05/2022, 08/28/2020, Additional history exists Lipid Panel 01/19/2025 01/20/2024, 08/27/2023 Pneumococcal vaccine <65 (3 of 3 - PPSV23 or PCV20) 2026 10/21/2016, 07/23/2016, 12/16/2015 DTaP/Tdap/Td Vaccine (3 - Td or Tdap) 05/27/2031 05/27/2021, 01/31/2019 Medical Devices Implanted Type Area Scuba Instructor Device Identifier Shelf Expiration Date Model / Serial / Lot Stent Bilateral: Leg Procedures Procedure Name Priority Date/Time Associated Diagnosis Comments POCT LIPID PANEL Routine 01/20/2024 9:29 AM ADMINISTRATIVE INTERN Coronary artery disease involving deering coronary artery of deering heart without angina pectoris EGFR STAT 04/13/2023 11:30 AM CDT from Last 3 Months or Most Recently Relevant to Health Maintenance Results * POCT lipid panel (01/20/2024 9:29 AM ADMINISTRATIVE INTERN) Cholesterol, POC 236 mg/dL Comment:GLU = 134 HDL, POC 38 mg/dL Triglycerides, POC 231 mg/dL LDL Cholesterol POC 152 mg/dL Chol/HDL Ratio, POC 4.0 Non-HDL Cholesterol, POC 198 mg/dL Cholesterol Total, POC 236 mg/dL Capillary blood 01/20/2024 9 :29 AM ADMINISTRATIVE INTERN us Ed Blevins MD POINT OF CARE TEST ORDER JENNIFER Final Result * eGFR (04/13/2023 11:30 AM CDT) eGFR 78 mL/min/1. 73 m2 [facility] Comment: Interpretive Data Reference Interval Normal ?>/= [...] 0 AM CDT 04/13/2023 11:54 AM CDT Deisi Vera NP LAB BLOOD ORDERABLES Fin al Result Performing Organization Address City/State/[facility] Co de Phone Number [facility] [address] [facility] [place] [address] from Last 3 Months or Most Recently Relevant to Health Maintenance Insurance [facility] Advance Directives For more information, please contact: [phone] * Full Code (Latest Code Status on File) Date Activated Date Inactivated Comments 04/13/2023 6:57 PM 04/14/2023 5:30 PM Care Teams Immigration Investigator Relationship Specialty Start Date End Date Deiis Andrews MD [address] [place] [address] [address] [place] [address] PCP - General Family Medicine 04/14/23
--- OUTSIDE RECORDS SUMMARY | 2024-11-12 05:09 | XMS_ITS | Encounter Summary ---
Author Organization [facility] Facility Care Team Providers Care Aircraft Stress Analyst Name Role Phone Unavailable Primary Care Provider Unavailabl e Encounter Details Date Type Department Care Team (Late st Contact Info) Description 04/18/2012 12:37 PM CDT - 04/18/2012 4:00 PM T Hospital Encounter [facility] Sanjeev Stephen MD [facility] [address] [address] Otitis media; Obstruction of eustachian tube; Hypertrophy of adenoids alone; Other diseases of vocal cords; Tobacco use disorder Social History Tobacco Use Types Packs/Day Years Used Date Smoking Tobacco: Never Assessed Comments Unknown Sex and Gender Information Value Date Recorded Sex Assigned at Not on file Legal Sex Female 7:48 PM INDUSTRIAL REGISTERED NURSE Gender Identity Not on file Sexual Orientation Not on file documented as of this encounter Plan of Treatment Not on file documented as of this encounter Visit Diagnoses Diagnosis Otitis media Unspecified otitis media Obstruction of eustachian tube Hypertrophy of adenoids alone Other diseases of vocal cords Tobacco use disorder documented in this encounter
--- OUTSIDE RECORDS SUMMARY | 2024-11-12 05:09 | XMS_ITS | Encounter Summary ---
Author Organization [facility] Facility Care Team Providers Care Transcribing Operator Head Name Role Phone Unavailable Primary Care Provider Unavailabl e Encounter Details Date Type Department Care Team (Late st Contact Info) Description 10/10/2013 12:59 PM THROW OUT CLERK - 10/10/2013 4:00 PM THROW OUT CLERK Hospital Encounter [facility] Ramy Hua. Perforation of tympanic membrane; Unemployed; Tobacco use disorder Social History Tobacco Use Types Packs/Day Years Used Date Smoking Tobacco: Never Assessed Comments Unknown Sex and Gender Information Value Date Recorded Sex Assigned at Not on file Legal Sex Female 7:48 PM THROW OUT CLERK Gender Identity Not on file Sexual Orientation Not on file documented as of this encounter Plan of Treatment Not on file documented as of this encounter Visit Diagnoses Diagnosis Perforation of tympanic membrane Unemployed Unemployment Tobacco use disorder documented in this encounter
--- OUTSIDE RECORDS SUMMARY | 2024-11-12 05:09 | XMS_ITS | Encounter Summary ---
Author Organization [facility] Address [address] [place] [address] Care Team Providers Care Evp Head Of [employer] Experience Strategy Name Role Phone Deisi Andrews MD Primary Care Provider + Encounter Details Date Type Department Care Team (Late st Contact Info) Description 08/10/2023 Orders Only [facility] Cardiology [address] [place] [address] Ed Blevins MD [address] [facility] [address] [place] [address] Social History Tobacco Use Types [...] often do you attend chur ch or rastafarian services? 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 Gender Identity Not on file Sexual Orientation Not on file documented as of this encounter Plan of Treatment Not on file documented as of this encounter Procedures Procedure Name Priority Date/Time Associated Diagnosis Comments CARDIOLOGY DOCUMENT SCAN Routine 08/08/2023 4:58 PM CDT CARDIOLOGY DOCUMENT SCAN Routine 08/07/2023 4:56 PM CDT documented in this encounter Results * Cardiology Document Scan (08/08/2023 4:58 PM CDT) Anatomical Region Laterality Modality Other us Ed Blevins MD CV CARDIAC SERVICES PROC EDURES Final Result * Cardiology Document Scan (08/07/2023 4:56 PM CDT) Anatomical Region Laterality Modality Other us Ed Blevins MD CV CARDIAC SERVICES PROC EDURES Final Result documented in this encounter Visit Diagnoses Not on filedocumented in this encounter Care Teams Evp Head Of [employer] Experience Strategy Relationship Specialty Start Date End Date Deisi Andrews MD [address] [place] [address] PCP - General Family Medicine 04/14/23 documented as of this encounter
--- OUTSIDE RECORDS SUMMARY | 2024-11-12 05:09 | XMS_ITS | Encounter Summary ---
Author Organization [facility] Care Team Providers Care Business And Services Instructor Name Role Phone Unavailable Primary Care Provider Unavailabl e Encounter Details Date Type Department Care Team (Late st Contact Info) Description 05/02/2012 12:44 PM CDT - 05/02/2012 4:00 PM T Hospital Encounter [facility] Sanjeev Stephen MD [address] [address] Hypertrophy of adenoids alone; Other diseases of vocal cords; Tobacco use disorder; Dysfunction of eustachian tube; Sensorineural hearing loss Social History Tobacco Use Types Packs/Day Years Used Date Smoking Tobacco: Never Assessed Comments Unknown Sex and Gender Information Value Date Recorded Sex Assigned at Not on file 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
--- OUTSIDE RECORDS SUMMARY | 2024-11-12 05:09 | XMS_ITS | Encounter Summary ---
Author Organization [facility] Care Team Providers Care Gas System Operator Name Role Phone Unavailable Primary Care Provider Unavailabl e Encounter Details Date Type Department Care Team (Late st Contact Info) Description 05/20/2012 5:53 AM CDT - 05/20/2012 4:00 PM T Hospital Encounter [facility] Mars Hahn MD PhD [address] [address] Candidiasis of other specified sites; Other diseases of pharynx, not elsewhere classified; Personal history of tobacco use, presenting hazards to health; Chronic obstructive asthma (HCC); Essential hypertension; Esophageal reflux; Encounter for long-term (current) use of non-steroidal anti-inflammatories; Osteoarthrosis Social History Tobacco Use Types Packs/Day Years Used Date Smoking Tobacco: Never Assessed Comments Unknown Sex and Gender Information Value Date Recorded Sex Assigned at Not on file 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 Gender Identity Not on file Sexual Orientation Not on file documented as of this encounter Plan of Treatment Not on file documented as of this encounter Visit Diagnoses Diagnosis Candidiasis of other specified sites Other diseases of pharynx, not elsewhere classified Personal history of tobacco use, presenting hazards to health Chronic obstructive asthma (HCC) Chronic obstructive asthma, unspecified Essential hypertension Unspecified essential hypertension Esophageal reflux Encounter for long-term (current) use of non-steroidal anti-inflammatories Osteoarthrosis Osteoarthrosis, unspecified whether generalized or localized, unspecified site documented in this encounter
--- OUTSIDE RECORDS SUMMARY | 2024-11-12 05:09 | XMS_ITS | Encounter Summary ---
Author Organization [facility] Address [address] [place] [address] Care Team Providers Care Entry Driver Operator Name Role Phone Matti Balderas MD Primary Care Provider [phone] Encounter Details Date Type Department Care Team (Late st Contact Info) Description 06/25/2022 Orders Only [facility] Cardiology [address] [place] [address] Liliana Thomas MD [address] [facility] [address] [place] [address] Social History Tobacco Use Types Packs/Day Years Used Date Smoking Tobacco: Never Assessed Comments Unknown Sex and Gender Information Value Date Recorded Sex Assigned at Not on file 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 Gender Identity Not on file Sexual Orientation Not on file documented as of this encounter Plan of Treatment Not on file documented as of this encounter Procedures Procedure Name Priority Date/Time Associated Diagnosis Comments CARDIOLOGY DOCUMENT SCAN Routine 06/25/2022 documented in this encounter Results * Cardiology Document Scan (06/25/2022) Anatomical Region Laterality Modality Other Liliana Thomas MD CV CARDIAC SERVICES PROCEDU RES Final Result documented in this encounter Visit Diagnoses Not on filedocumented in this encounter Care Teams Entry Driver Operator Relationship Specialty Start Date End Date Matti Balderas MD PCP - General Family Medicine 09/24/21 04/13/23 documented as of this encounter
--- OUTSIDE RECORDS SUMMARY | 2024-11-12 05:09 | XMS_ITS | Encounter Summary ---
Author Organization [facility] Healthcare Address [address] [place] [address] Care Team Providers Care Quantitative Manager Name Role Phone Deisi Andrews MD Primary Care Provider + Reason for Referral * Diagnostic Imaging (Routine) - Closed Specialty Diagnoses / Procedures Referred By Contac t Referred To Contact Diagnoses Elevated troponin Paroxysmal atrial fibrillation (CMS/HCC) (HCC) Procedures NM MPI SPECT (Rest and/or Stress) Multiple Studies Ed Blevins MD Phone: tel: fax: [facility] Referral ID Status Reason Start Date Expiration Date Visits Re quested Visits Authorized [id number] Closed 09/03/2023 09/02/2024 1 1 Encounter Details Date Type Department Care Team (Late st Contact Info) Description 09/09/[address] [facility] Cardiology [address] [facility] [place] [id number] Ed Blevins MD [address] [facility] [address] [place] [address] Social History Tobacco Use Types Packs/Day Years [...] often do you attend chur ch or alevism services? 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 She is aware she needs to take her Metoprolol that am. NO caffeine. Hold DM meds. * Telephone Encounter - Hollie Guillen RN - 09/09/2023 9:[address] reordered. Pt had to sent to ER after being in [facility] when she was here for ST yesterday.Per EU, pt was given IV Metoprolol in the ER and HR improved. Pt was sent home. Will have pt take Metoprolol for next test. NOT hold. Sending to AD as FYI documented in this encounter Plan of Treatment Not on file documented as of this encounter Results * NM MPI SPECT (Rest and/or Stress) Multiple Studies (09/16/2023 9:26 AM CDT) Anatomical Region Laterality Modality Body N/A Nuclear Medicine 09/16/2023 7:45 AM CDT Narrative 09/17/2023 12:[address] [facility] Cardiology [address], [place] [address] [address] [facility] [address], [place] [address] P:[phone] P:[phone] MPI Imaging Report Patient Name: RODY CRUZ J : 1960 Study Date: 09/16/2023 7:45:00 AM Gender: F Tech: [facility] Location: [facility] Provider: ED BLEVINS ?Height(Cm): 160 BSA: Weight(Kg): 83.9 BMI: 32.77 ?Order Provider: ED BLEVINS - PHYSICIAN: Referring Physician: Dr. Andrews. HCG Physician: Tomer Blevins M.D. Interpreting Physician: Tomer Blevins M.D. Stress Supervision: Tomer Blevins M.D. PROCEDURES: Myocardial perfusion imaging with Tc99M Sestamibi SPECT at rest and stress post regadenoson (Lexiscan) infusion. INDICATIONS: Atrial Fibrillation. PAD, Hypertension, Diabetes, Family Hx CAD, High Cholesterol, and Smoker. FINDINGS: Procedural Findings: One day rest/stress was used. Tc99m Sestamibi injected IV at rest was 10.3 millicuries. 33.2 millicuries of Tc99M Sestamibi injected IV during Lexiscan stress. Lexiscan 0.4mg administered IV over 10 seconds. Patient had no symptoms during stress test. Baseline heart rate was 73 BPM. Maximum Heart Rate Achieved was: 86 BPM. Baseline blood pressure was 154/86 mmHg. Post Stress Blood Pressure was 152/86 mmHg. Termination: Protocol complete. Resting ECG: Sinus rhythm. PAC. Post ECG: No diagnostic ST changes. Arrhythmia: Occasional APCs. Perfusion Findings: Normal perfusion imaging. No definite fixed or reversible defects. Technical quality of study is excellent. Prone imaging was not performed. Left ventricle cavity size at rest is normal. Left ventricle cavity size with stress is unchanged. A TID of 0.90 was automatically calculated. LV Function: Global left ventricular function is normal. Left ventricular ejection fraction is 69 %. CONCLUSIONS: No diagnostic ST changes. Global left ventricular function is normal. Left ventricular ejection fraction is 69 %. Myocardial perfusion imaging is normal. Recommend follow up with customer account specialist. Electronically Signed By: Tomer Blevins MD 2023-09-17 12:50:37 CDT Electronically Signed By: Tomer Blevins MD 2023-09-17 12:50:37 CDT Procedure Note Ed Blevins MD - 09/17/2023 [facility] Cardiology [address], [place] [address] [address] [facility] [address], [place] [address] P:[phone] P:[phone] MPI Imaging Report Patient Name: RODY CRUZ JPatient ID: [id number] : [id number] Date: 09/16/2023 7:45:00 AM Gender: FAccession #: [id number] Tech: , [facility] Provider: ED BLEVINS Height(Cm): 160 BSA: Weight(Kg): 83.9 BMI: 32.77 Order Provider: ED BLEVINS - PHYSICIAN: Referring Physician: Dr. Andrews. HCG Physician: Tomer Blevins M.D.Interpreting Physician: Tomer Blevins M.D. Stress Supervision: Tomer Blevins M.D. PROCEDURES: Myocardial perfusion imaging with Tc99M Sestamibi SPECT at rest and stresspost regadenoson (Lexiscan) infusion. INDICATIONS: Atrial Fibrillation. PAD, Hypertension, Diabetes, Family Hx CAD, HighCholesterol, and Smoker. FINDINGS: Procedural Findings: One day rest/stress was used. Tc99m Sestamibi injected IV at rest was 10.3millicuries. 33.2 millicuries of Tc99M Sestamibi injected IV during Lexiscan stress.Lexiscan 0.4mg administered IV over 10 seconds. Patient had no symptoms during stresstest. Baseline heart rate was 73 BPM. Maximum Heart Rate Achieved was: 86 BPM. Baselineblood pressure was 154/86 mmHg. Post Stress Blood Pressure was 152/86 mmHg. Termination: Protocol complete. Resting ECG: Sinus rhythm. PAC. Post ECG: No diagnostic ST changes. Arrhythmia: Occasional APCs. Perfusion Findings: Normal perfusion imaging. No definite fixed or reversible defects.Technical quality of study is excellent. Prone imaging was not performed. Left ventricle cavitysize at rest is normal. Left ventricle cavity size with stress is unchanged. A TID of0.90 was automatically calculated. LV Function: Global left ventricular function is normal. Left ventricular ejectionfraction is 69 %. CONCLUSIONS: No diagnostic ST changes. Global left ventricular function is normal. Left ventricular ejectionfraction is 69 %. Myocardial perfusion imaging is normal. Recommend follow up with customer account specialist. Electronically Signed By: Tomer Blevins MD 2023-09-17 12:50:37 CDT Electronically Signed By: Tomer Blevins MD 2023-09-17 12:50:37 CDT Ed Blevins MD [facility] PROCEDURES Final Result documented in this encounter Visit Diagnoses Diagnosis Elevated troponin- Primary Other abnormal blood chemistry Paroxysmal atrial fibrillation (CMS/HCC) (HCC) Atrial fibrillation Elevated troponin Other abnormal blood chemistry Paroxysmal atrial fibrillation (CMS/HCC) (HCC) Atrial fibrillation documented in this encounter Care Teams Quantitative Manager Relationship Specialty Start Date End Date Deisi Andrews MD [address] [place] [address] [place] [id number] PCP - General Family Medicine 04/14/23 documented as of this encounter
--- OUTSIDE RECORDS SUMMARY | 2024-11-12 05:09 | XMS_ITS | Encounter Summary ---
Author Organization [facility] Healthcare Address [address] [place] [address] Care Team Providers Care Chenille Machine Operator Name Role Phone Unavailable Primary Care Provider Unavailabl e Encounter Details Date Type Department Care Team (Latest Contact Info) Description 01/30/2015 1:50 PM CDT - 01/30/2015 6:30 PM CDT Hospital Encounter [facility] Martir Garcia MD [address] [address] Esophageal reflux; Nausea without vomiting; Dysphagia; Encounter for long-term (current) use of other medications; Essential hypertension; Other and unspecified hyperlipidemia; Asthma Social History Tobacco Use Types Packs/Day Years Used Date Smoking Tobacco: Never Assessed Comments Unknown Sex and Gender Information Value Date Recorded Sex Assigned at Not on file 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 Gender Identity Not on file Sexual Orientation Not on file documented as of this encounter Last Filed Vital Signs Vital Sign Reading Time Taken Comments Blood Pressure 126/62 01/30/2015 2:00 PM CDT Pulse 81 01/30/2015 2:00 PM CDT Temperature 36.2 ??C (97.2 ??F) 01/30/2015 2:00 PM CD T Respiratory Rate - - Oxygen Saturation 99% 01/30/2015 2:00 PM CDT Inhaled Oxygen Concentration - - Weight 102.1 kg (225 lb) 01/30/2015 2:00 PM CDT Height 160 cm (5' 3 ) 01/30/2015 2:00 PM CDT Body Mass Index 39.86 01/30/2015 2:00 PM CDT documented in this encounter Plan of Treatment Not on file documented as of this encounter Procedures Procedure Name Priority Date/Time Associated Diagnosis Comments SCAN - PATHOLOGY 02/01/2015 12:0 0 AM CDT documented in this encounter Results * SCAN - PATHOLOGY (02/01/2015 12:00 AM CDT) Narrative 02/01/2015 12:00 AM CDT Ordered by an unspecified provider. Historical Provider Final Res ult documented in this encounter Visit Diagnoses Diagnosis Esophageal reflux Nausea without vomiting Dysphagia Encounter for long-term (current) use of other medications Essential hypertension Unspecified essential hypertension Other and unspecified hyperlipidemia Asthma Unspecified asthma documented in this encounter
--- OUTSIDE RECORDS SUMMARY | 2024-11-12 05:09 | XMS_ITS | Encounter Summary ---
Author Organization [facility] Healthcare Address [address] [place] [address] Care Team Providers Care Supervisor [place] Department Name Role Phone Matti Balderas MD Primary Care Provider [phone] Reason for Visit * Reason Comments Arm Injury * Auth/Cert (Routine) Specialty Diagnoses / Procedures Referred By Contac t Referred To Contact Diagnoses Posterior dislocation of left elbow, initial encounter Closed dislocation of left elbow, initial encounter Procedures na Referral ID Status Reason Start Date Expiration Date Visits Re quested Visits Authorized [id number] 1 1 Encounter Details Date Type Department Care Team (Late st Contact Info) Description 04/13/2023 5:50 PM CDT - 04/13/2023 6:20 PM CDT Surgery [facility] Operating Room [address] [place] [id number] Earl Bhandari DO [address] [place] [address] [place] [address] CLOSED REDUCTION - ELBOW Surgery Details Date/Time Status Location OR Service Patient Class Case Class Case Type Trauma Case? 04/13/2023 5:50 PM [facility] Orthopaedics Inpatient Urgent - 6 hours Panel 1 Procedure LRB Anes Op Region Wound Class Comments CLOSED REDUCTION - ELBOW Left General Elbow Class I - Clean Surgeon Surgeon Role Service Panel Earl Bhandari DO Primary Orthopaedics 1 documented in this encounter Social History Tobacco Use Types Packs/Day Years Used Date Smoking Tobacco: Every Day Cigarettes 0.8 40 Tobacco Cessation:Ready to Q uit: Yes; Counseling Given: Yes Social Connection and Isolat ion Panel [NHANES] Answer Date Recorded In a typical week, how many times do you talk on the phone with family, friends, or neighbors? More than three times a week 04/14/2023 How often do you get togethe r with friends or relatives? More than three times a week 04/14/2023 How often do you attend chur or oriental orthodox services? 1 to 4 times per year 04/14/2023 Do you belong to any clubs o r organizations such as caodaism groups, unions, fraternal or athletic groups, or [...] place to sleep or slept in a longterm (including now)? No 04/14/2023 Personal Safety Answer Date Recorded Have you ever been in or are you currently in a harmful physical or emotional relationship or is someone making you feel afraid or unsafe? 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 Gender Identity Not on file Sexual Orientation Not on file documented as of this encounter Last Filed Vital Signs Vital Sign Reading Time Taken Comments Blood Pressure 136/63 04/13/2023 6:15 PM CDT Pulse 81 04/13/2023 6:15 PM CDT Temperature 36.6 ??C (97.8 ??F) 04/13/2023 2:50 PM CD T Respiratory Rate 14 04/13/2023 6:15 PM CDT Oxygen Saturation 98% 04/13/2023 6:15 PM CDT Inhaled Oxygen Concentration - - Weight 88.5 kg (195 lb) 04/13/2023 9:43 AM CDT Height 160 cm (5' 3 ) 04/13/2023 9:43 AM CDT Body Mass Index 35.71 04/13/2023 6:35 PM CDT documented in this encounter Discharge Instructions * Attachments The following attachments cannot be sent through Care Everywhere. * Closed Reduction (General Information) (Croatian) * Hydrocodone/Acetaminophen (By mouth) (Croatian) documented in this encounter Medications at Time of Discharge albuterol HFA (PROVENTIL HFA,VENTOLIN HFA,PROAIR HFA) 90 mcg/actuation inhaler INHALE 2 PUFFS BY MOUTH FOUR TIMES DAILY NEEDED FOR SHORTNESS OF BREATH OR WHEEZING 12/15/2015 clopidogreL (PLAVIX) 75 mg tablet Take 1 tablet (75 mg total) by mouth daily ezetimibe (ZETIA) 10 mg tablet Take 1 tablet (10 mg total) by mouth daily fexofenadine-pse udoephedrine (SAMANTHA-D 24) 180-240 mg per 24 hr tablet Take 1 tablet by mouth daily FLUoxetine (PROzac) 40 mg capsule Take 60 mg by mouth daily fluticasone propionate (FLONASE) 50 mcg/actuation nasal spray Administer 1 spray into each nostril daily metFORMIN (GLUCOPHAGE) 500 mg tablet Take 1 tablet (500 mg total) by mouth 2 (two) times a day with meals nitroglycerin (NITROSTAT) 0.[address] 1 tablet (0.4 mg total) under the tongue every 5 (five) minutes as needed for chest pain traZODone (DESYREL) 50 mg tablet Take 1 tablet (50 mg total) by mouth nightly as needed 02/22/2023 HYDROcodone-acet aminophen (NORCO) 7.5-325 mg per tabletIndication s:Pain Take 1 tablet by mouth every 6 (six) hours as needed for pain for up to 7 days 28 tablet 04/13/2023 3 ALPRAZolam (XANAX) 1 mg tablet Take 1 tablet (1 mg total) by mouth nightly as needed for anxiety 4 evolocumab (Repatha SureClick) 140 mg/mL pen injector 05/29/2022 4 isosorbide dinitrate (ISORDIL) 40 mg tablet Take 50 mg by mouth daily 4 losartan (COZAAR) 100 mg tablet Take 1 tablet (100 mg total) by mouth daily 4 metoprolol XL (TOPROL-XL) 25 mg extended release tablet Take 1 tablet (25 mg total) by mouth daily 3 zolpidem (AMBIEN) 10 mg tabletIndication s:Sleep-Onset Insomnia Take 1 tablet (10 mg total) by mouth nightly as needed for sleep 4 documented as of this encounter Ordered Prescriptions Prescription Sig Dispense Quantity Refills Last Filled Start Date End Date HYDROcodone-acetam inophen (NORCO) 7.5-325 mg per tabletIndications: Pain Take 1 tablet by mouth every 6 (six) hours as needed for pain for up to 7 days 28 tablet 04/13/2023 04/20/2023 documented in this encounter Discharge Disposition Disposition Code Departure Means Destination Comment s Discharge to home or self care documented in this encounter Progress Notes * Ekta Watters LCSW - 04/14/2023 1:25 PM CDT 04/14/23 1327 Discharge Summary Chart reviewed For Medical Necessity Does patient have a planned readmission to hospital planned? No Discharge Disposition Private residence Equipment/Provider Needs No Home Needs Identified Discharge Additional Assistance Does the patient need discharge transport arranged? No Has discharge transport been arranged? Yes Pt discharged home. * Jacklyn Herrera, OT - 04/14/2023 12:33 PM CDT Occupational Therapy Occupational Therapy Initial Assessment NOTE:This is a summary note for the serrano assessments completed during the evaluation session. For full details, review chart review for all flowsheets documented on by this Occupational Therapist on this date. Vital signs documented in vital signs flowsheet. 04/14/23 0935 General Chart Reviewed Yes Session Type Evaluation OT Received On 04/14/23 Safe Environment Arm band checked;Patient found in supine;Session completed in gym;Gait belt utilized for all out of bed mobility Subjective Agreeable to Therapy Subjective Comment Patient is 62 yo female admitted to [facility] following fall at home and posterior dislocation of left elbow. She had a closed reduction on 04/13/23 PMH: asthma, GERD, OA Family/Caregiver Present No Occupational Therapy-Patient Goal return to PLOF Current Functional Status OT Self Care [facility] OT Cognition WFL OT Communication WFL Precautions Precautions Fall risk Weight Bearing Restrictions Yes LUE Weight Bearing NWB Home Living Type of Home Apartment Home Layout One level Home Access Elevator Bathroom Shower/Tub Tub/shower unit Bathroom Toilet Standard Bathroom Equipment Grab bars in shower/tub;Built-in shower seat Bathroom Accessibility Accessible Home Mobility Equipment 4-Wheeled walker;Single point cane Additional Comments per pt report Prior Function Level of [place] Independent with ADLs;Independent functional transfers;Independent with ambulation;Needs assistance with homemaking Lives With Alone 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) Driving Yes Mode of Transportation Driven by self ADL Assistance Independent Instrumental ADL (IADL) Assistance Needs assistance Fall within the last 6 months Yes Fall within the last 6 months comment fall leading to current admission Prior Function Comments per pt report ADL ADLS (WDL) WFL Bathing Bathing: Where assessed Other (Comment) (based on clinical observations) Bathing: Level of assistance Standby Assist Bathing: Assistance with Increased time to complete ;Use of adaptive equipment LE Dressing LE Dressing: Where assessed Sitting;Edge of bed LE Dressing: Level of assistance Modified independent LE Dressing: Assistance with Increased time to complete Toileting Toileting: Where assessed Other (Comment) Toileting: Level of assistance Standby Assist Toileting: Assistance with Increased time to complete;Use of adaptive equipment Pain Assessment Pain Assessment 0-10 Pain Score 8 Pain Type Acute pain Pain Location Arm Pain Orientation Left Pain Interventions Repositioned;Pillow;RN Notified Response to Interventions Partial pain relief Activity Tolerance Endurance Endurance does not limit participation in activity Cognition Overall Cognitive Status WFL Arousal/Alertness Appropriate responses to stimuli;Alert Current communication Appears Intact Orientation Oriented X4 (person, place, time, situation) Following Commands Follows all commands and directions without difficulty Compliance/Behavior Easy to engage Perseveration Not present Sensation Light Touch WFL Numbness/Tingling Yes Sensation Comments n/t in L hand Motor Planning Motor Planning Appears intact Coordination Movements Are Fluid and Coordinated 1 Fine Motor Fair Serial Opposition Fair Hand Function Coordination Functional Gross Grasp Impaired Balance Balance Yes Static Sitting Balance Static Sitting-Level of Assistance Independent Dynamic Sitting Balance Dynamic Sitting-Level of Assistance Independent Static Standing Balance Static Standing-Balance Support No upper extremity supported Static Standing-Standing Surface Floor Static Standing-Level of Assistance Distant supervision Dynamic Standing Balance Dynamic Standing-Balance Support No upper extremity supported Dynamic Standing-Standing Surface Floor Dynamic Standing-Level of Assistance Close supervision Bed Mobility Bed Mobility Yes Bed Mobility 1 Bed Mobility From 1 Supine Bed Mobility Type 1 To Bed Mobility to 1 Short sit;Edge of bed Level of Assistance 1 Minimum Assist Bed Mobility 2 Bed Mobility From 2 Short sit;Edge of bed Bed Mobility Type 2 To Bed Mobility to 2 Supine Level of Assistance 2 Standby Assist Transfers Transfer Yes Transfer 1 Transfer From 1 Sit Transfer Type 1 To and from Transfer to 1 Stand Technique 1 Sit to stand;Stand to sit Transfer Device 1 No device Transfer Level of Assistance 1 Standby Assist RUE Assessment RUE Assessment WFL RUE Comments AROM WFL, MMT grossly 4+/5 LUE Assessment LUE Assessment X LUE Comments not tested at this time with pt in long splint, NWB precautions; able to complete serial opposition Other Comments Comments Pt presenting close to baseline, independence and safety with ADLs impacted by LUE. In long splint at this time with NWB precautions; MMT and ROM not completed at this time. Fair serial opposition with light touch intact. Reports some mild n/t in L hand. Independent with LB dressing using one-handed method seated at EOB. Good endurance, limited by pain at this time. Minimal-no concerns for return home at this time. Pt would benefit from continued OP therapy when appropriate, will initiate POC to promote safe return home. Daily Activity - 6 Clicks Putting on and taking off regular lower body clothing 4 Bathing 3 Toileting 3 Putting on and taking off upper body clothing 4 Personal Grooming 3 Eating Meals 4 Total Score (range 6-24) 21 Score Interpretation 44.27 Safe Environment End of Therapy Session Safe Environment End of Therapy Session Patient left supine in bed;Call light within reach;Overbed table within reach;Bed in lowest position with wheels locked Assessment Prognosis Good Problem List Decreased upper extremity range of motion;Decreased upper extremity strength;Decreasedfine motor control;Decreased ADL independence;Decreased IADL independence;Decreased UE function;Pain;Decreased ROM Plan Plan Plan of care initiated;If this is the last note, consider this the discharge summary Recommendation/Plan OT Recommendation (S) Outpatient OT OT Recommendation/Plan Comments Pt would benefit from continued OP therapy when appropriate, will initiate POC to promote safe return home. OT Frequency during current admission 2-3x/wk Treatment/Interventions during current admission ADL/IADL retraining;Compensatory technique education;Equipment eval/education;Functional activity;Therapeutic activity;Therapeutic exercise;Strengthening;Upper extremity motor function/functional skills OT Equipment Recommended None OT Evaluation Complete Yes OT Goals Multi-Disciplinary Problems (from Occupational Therapy) Active Problems Problem: OT Misc Start Date: 04/14/23 Goal Start Date Expected End Date End Date OT STG - Pt will demonstrate ability to complete safe toilet transfer Miguel Ángel or better on 2/2 trials to support independence with functional transfers. 04/14/23 04/21/23 -- Goal Start Date Expected End Date End Date OT STG - Pt will demonstrate ability to don/doff sling independently on 2/2 trials to support independence with self care tasks. 04/14/23 04/21/23 -- * Nydia Jacquelin Jessica, PT - 04/14/2023 11:57 AM CDT Physical Therapy Physical Therapy Initial Assessment NOTE: This is a summary note for the serrano assessments completed during the evaluation session. For full details, review chart review for all flowsheets documented on by this physical therapist on thisdate. Vital signs documented in vital signs flowsheet. 04/14/23 0952 General Chart Reviewed Yes Session Type Evaluation PT Received On 04/14/23 Safe Environment Arm band checked;Patient found in supine;Session completed in gym;Gait belt utilized for all out of bed mobility Subjective Agreeable to Therapy Additional Pertinent History Patient presents to [facility] following fall at home and posterior dislocation of left elbow. She had a closed reduction on 04/13/23; PMH- asthma, GERD, OA Family/Caregiver Present No Physical Therapy-Patient Goal To return to PLOF Current Functional Status PT Functional Mobility SPV x 1 for transfers and ambulation with gait belt Precautions Precautions Fall risk Home Living Type of Home Apartment Home Layout One level Home Access Elevator Home Mobility Equipment 4-Wheeled walker;Single point cane (SPC indoors and 4ww for community distances) Prior Function Level of [place] Independent with ADLs;Independent functional transfers;Independent with ambulation;Needs assistance with homemaking Lives With Alone 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) Driving Yes ADL Assistance Independent Instrumental ADL (IADL) Assistance Needs assistance Fall within the last 6 months Yes Fall within the last 6 months comment Fall leading to admission related to tripping over dog gate Activity Tolerance Endurance Endurance does not limit participation in activity Pain Assessment Pain Assessment 0-10 Pain Score 8 Pain Type Acute pain Pain Location Arm Pain Orientation Left Pain Interventions Repositioned Cognition Overall Cognitive Status WFL Arousal/Alertness Alert;Appropriate responses to stimuli Current communication Appears Intact Orientation Oriented X4 (person, place, time, situation) Following Commands Follows all commands and directions without difficulty Compliance/Behavior Easy to engage Sensation Light Touch WFL Numbness/Tingling No Balance Balance Yes Static Sitting Balance Static Sitting-Level of Assistance Independent Dynamic Sitting Balance Dynamic Sitting-Level of Assistance Independent Static Standing Balance Static Standing-Balance Support No upper extremity supported Static Standing-Level of Assistance Distant supervision Dynamic Standing Balance Dynamic Standing-Balance Support No upper extremity supported Dynamic Standing-Standing Surface Floor Dynamic Standing-Level of Assistance Close supervision Bed Mobility Bed Mobility Yes Bed Mobility 1 Bed Mobility From 1 Supine Bed Mobility Type 1 To Bed Mobility to 1 Short sit;Edge of bed Level of Assistance 1 Minimum Assist Bed Mobility 2 Bed Mobility From 2 Short sit;Edge of bed Bed Mobility Type 2 To Bed Mobility to 2 Supine Level of Assistance 2 Standby Assist Transfers Transfer Yes Transfer 1 Transfer From 1 Sit Transfer Type 1 To and from Transfer to 1 Stand Technique 1 Sit to stand;Stand to sit Transfer Device 1 No device Transfer Level of Assistance 1 Standby Assist Ambulation Ambulation Yes Ambulation 1 Distance (ft) 1 30 ft Surface 1 Level tile Device 1 No device Assistance 1 Standby Assist Quality of Gait 1 Steady, decreased heel strike, varus deformity of knees RLE Assessment RLE Assessment WFL LLE Assessment LLE Assessment WFL Other Comments Other PT Comments Patient presents with mild mobility limitations secondary to left elbow dislocation. Patient required minimal assistance to perform bed mobility, but was otherwise able to transfer and ambulate with supervision only. Patient should be able to return home safely and will benefit from outpatient PT when able to actively move left elbow/wrist. Basic Mobility - 6 Click How much difficulty does the patient have: Turning over in bed 4 How much difficulty does the patient currently have: Sitting down and standing up from a chair witharms? 4 How much difficulty does the patient have: Moving from lying on back to sitting on the side of the bed? 3 How much difficulty does the patient have: Moving to and from a bed to a chair including wheelchair? 4 How much help does the patient currently need: Walk in hospital room? 4 How much help from another person does the patient currently need: Climbing 3-5 steps with a railing? 4 Total 6 Click Score (range 6-24) 23 Score Interpretation 50.88 Safe Environment End of Therapy Session Safe Environment End of Therapy Session Patient left supine in bed;Call light within reach;Overbed table within reach;Bed in lowest position with wheels locked Assessment Prognosis Good Problem List Impaired balance;Decreased mobility;Pain Barriers to Discharge None Plan Plan Plan of care initiated;If this is the last note, consider this the discharge summary Recommendation/Plan PT Recommendation/Plan Outpatient PT (When appropriate for LUE) PT Frequency during current admission 1-2x/wk Treatment/Interventions during current admission Bed mobility;Balance Training;Functional activity;Functional transfer training;Therapeutic activity;Strengthening;Therapeutic exercise;Transfer training PT Equipment Recommended None PT - OK to Discharge Yes PT Evaluation Complete Yes PT Goals Multi-Disciplinary Problems (from Physical Therapy) Active Problems Problem: PT Misc Start Date: 04/14/23 Goal Start Date Expected End Date End Date Patient will perform bed mobility and functional transfers independently. 04/14/23 04/21/23 -- Goal Start Date Expected End Date End Date Patient will ambulate community distances with SPC and modified independence. 04/14/23 04/21/23 -- * Earl Bhandari DO - 04/14/2023 9:52 AM CDT Orthopedic surgery progress note .Subjective: Patient reports moderate pain. Denies any fevers/chills/nausea/vomiting/chest pain/difficulty breathing. Objective: GEN: awake, alert, conversational MSK: Left arm: splint is clean, dry, intact. Arm compartments are soft, compressible. Distally sensation is intact, able to flex/extend all fingers. Brisk capillary refill Assessment: Left elbow dislocation s/p closed reduction Left distal radius fracture NWB LUE Maintain splint DC home today if pain reasonably controlled. documented in this encounter Consult Notes * Earl Bhandari DO - 04/13/2023 5:28 PM CDT Ortho Trauma Consult Reason for Consult: L elbow dislocation, L distal radius fracture Requesting Provider: Requesting Service: ED Attending Physician: Earl Bhandari DO Subjective Patient is a 62 y.o. female with chief complaint of left elbow and wrist pain. Patient sustained a fall while trying to step over a fence earlier today. She landed on her outstretched left arm. Immediate pain and deformity to the left elbow region. Upon presentation to the emergency department was found to have a dislocated elbow and minimally displaced distal radius fracture. Did have a history of previous left distal radius fracture treated with open reduction with internal fixation with subsequent plate and screw removal.. Past Medical History: Diagnosis Date Personal history [...] - (Added by TW Conv) Past Surgical History: Procedure Laterality Date MT DELIVERY ONLY Section - (Added by TW Conv) MT CHOLECYSTECTOMY Cholecystectomy - (Added by TW Conv) MT LIG/TRNSXJ FLP TUBE ABDL/VAG APPR UNI/BI Tubal Ligation - (Added by TW Conv) Medications Prior to Admission Medication Sig Dispense Refill Last Dose clopidogreL (PLAVIX) 75 mg tablet Take 1 tablet (75 mg total) by mouth daily 04/13/2023 at 0900 ezetimibe (ZETIA) 10 mg tablet Take 1 tablet (10 mg total) by mouth daily 04/13/2023 at 0900 fexofenadine-pseudoephedrine (SAMANTHA-D 24) 180-240 mg per 24 hr tablet Take 1 tablet by mouth daily 04/13/2023 at 0900 losartan (COZAAR) 100 mg tablet Take 1 tablet (100 mg total) by mouth daily 04/13/2023 at 0900 metoprolol XL (TOPROL-XL) 25 mg extended release tablet Take 1 tablet (25 mg total) by mouth daily 04/13/2023 at 0900 Allergies Allergen Reactions Penicillins Hives Reaction: Hives, Haldol [Haloperidol] Other (See comments) Facial drooping Risperidone Other (See comments) Dry mouth Social History Tobacco Use Smoking status: Every Day Packs/day: 0.05 Types: Cigarettes Smokeless tobacco: None Substance and Sexual Activity Drug use: Yes Frequency: 2.0 times per week Types: Marijuana Sexual activity: Defer Alcohol Use: Not At Risk (04/13/2023) AUDIT-C Frequency of Alcohol Consumption: Never Average Number of Drinks: Not on file Frequency of Binge Drinking: Not on file Family History Problem Relation Age of Onset Lung cancer Other Malignant Lung Neoplasm - (Added by TW Conv) Hypertension Other Hypertension - (Added by TW Conv) Diabetes Other Diabetes Mellitus - (Added by TW Conv) Review of Systems: Review of systems per HPI and as listed below, otherwise remainder of all systems were normal Objective Vitals: Vitals: 04/13/23 1700 BP: Pulse: 74 Resp: 17 Temp: SpO2: 95% Physical Exam: Well-developed, well-nourished, in no acute distress. Alert and oriented ?? 3. Normal respirations, no dyspnea with speaking. The uninjured extremities are warm and show good perfusion; neurologically intact to light touch throughout. Skin is intact and there is no lymphedema. The injured extremity shows several areas of ecchymoses throughout the bilateral upper extremities.Left elbow does show deformity. Distally she has brisk capillary refill palpable distal radial pulse. Normal sensation to light touch throughout the hand, each finger, and throughout the forearm. There is significant tenderness to palpation around the elbow as well as distally around the wrist. Pain is not well localized. There is no obvious deformity of the wrist. There is previous well-healed surgical scar.. The contralateral extremity shows normal inspection, palpation, range of motion, strength, and stability. Lab/Diagnostic Review: Laboratory review: Lab results in the last 24 hours: Recent Results (from the past 24 hour(s)) CBC with auto differential Collection Time: 04/13/23 11:30 AM Result Value Ref Range WBC 9.5 3.8 - 9.9 K/cumm Hgb 13.1 11.9 - 15.5 g/dL Hct 39.9 35.6 - 45.5 % Plt 216 150 - 400 K/cumm MPV 10.0 9.1 - 12.3 fL RBC 4.53 3.90 - 5.20 M/cumm MCV 88.1 81.3 - 96.4 fL MCH 28.9 27.1 - 33.3 pg MCHC 32.8 32.3 - 35.7 g/dL RDW CV 13.3 11.1 - 14.9 % RDW SD 43.0 35.7 - 48.1 fL NRBC abs 0.00 0.00 - 0.01 K/cumm Comprehensive metabolic panel Collection Time: 04/13/23 11:30 AM Result Value Ref Range Sodium 139 135 - 145 mmol/L Potassium, pl 4.4 3.3 - 4.9 mmol/L Chloride 104 97 - 110 mmol/L CO2 24 22 - 32 mmol/L Anion gap 11 2 - 15 mmol/L BUN 28 (H) 8 - 25 mg/dL Creatinine 0.85 0.60 - 1.10 mg/dL Glucose 184 70 - 199 mg/dL Calcium 9.4 8.5 - 10.3 mg/dL Bilirubin, total 0.2 0.1 - 1.2 mg/dL Protein, pl 6.8 6.5 - 8.5 g/dL Albumin 4.0 3.5 - 5.2 g/dL Alk phos 99 40 - 130 Units/L ALT 13 7 - 45 Units/L AST 12 10 - 45 Units/L Differential, auto Collection Time: 04/13/23 11:30 AM Result Value Ref Range Neutrophil abs 6.2 1.7 - 6.5 K/cumm Imm gran abs 0.1 0.0 - 0.1 K/cumm Lymphocyte abs 2.2 0.8 - 3.3 K/cumm Monocyte abs 0.7 0.2 - 0.8 K/cumm Eosinophil abs 0.3 0.0 - 0.5 K/cumm Basophil abs 0.1 0.0 - 0.1 K/cumm Neutrophil pct 65.3 % Imm gran pct 0.5 % Lymphocyte pct 23.3 % Monocyte pct 7.6 % Eosinophil pct 2.8 % Basophil pct 0.5 % eGFR Collection Time: 04/13/23 11:30 AM Result Value Ref Range eGFR 78 mL/min/1.73 m2 COVID-19 Coronavirus RNA Nasopharyngeal Collection Time: 04/13/23 12:49 PM Specimen: Nasopharyngeal Result Value Ref Range COVID-19 RNA Negative Negative POCT glucose Collection Time: 04/13/23 4:43 PM Result Value Ref Range Glucose POC 143 70 - 199 mg/dL Radiology Review: I have reviewed the imaging with the following findings: Posterior left elbow dislocation Left wrist x-rays demonstrate chronic healed distal radius fracture with mild deformity, probable acute intra-articular minimally displaced fracture Assessment /Plan Assessment/Plan: Left elbow posterior dislocation with coronoid process fracture Left distal radius intra-articular minimally displaced fracture Treatment plan: I discussed treatment options with the patient today. I did recommend urgent closedreduction of the elbow dislocation with splinting of the elbow and the wrist was long-arm splint. Risk include but are not limited to: Intraoperative decompensation, stiffness, posttraumatic arthritis, neurovascular damage, continued instability, fracture, inability to return to previous function. Patient showed good understanding and informed consent was obtained. documented in this encounter ED Notes * Deisi Vera SERVICE ORDER EXPEDITER - 04/13/2023 10:08 AM CDT Chief complaint I tripped over the dog cage and the dog and hurt my left arm. HPI Chief Complaint Patient presents with Arm Injury HPI This 62-year-old female presents per private car from [facility] with complaints of left elbow pain secondary to a fall. Patient states that she was attempting to step over the dog gate when the dog and the gait tripped her up causing her to fall on her left elbow. Patient denies any head injury,neck pain, chest pain, abdominal pain, nausea vomiting diarrhea, shortness of breath, urinary symptoms, or fever. Patient has a past medical history of COPD exacerbation, diverticulitis, coronary artery disease, hyperlipidemia, anxiety, diabetes mellitus, CVA, asthma, hypertension, nicotine abuse. HPI Patient History: Patient Active Problem List Diagnosis Date Noted Posterior dislocation of left elbow 04/13/2023 Closed dislocation of left elbow, initial encounter 04/13/2023 Allergic rhinitis 03/05/2023 Acute exacerbation of chronic obstructive airways disease (HCC) 02/19/2023 Diverticulitis 01/21/2023 CAD in enterprise artery 10/24/2020 Hyperlipidemia, mixed 03/22/2017 Anxiety 03/01/2017 Diabetes (HCC) 03/01/2017 Cerebrovascular accident (HCC) 03/01/2017 Asthma 01/09/2017 Insomnia due to medical condition 01/09/2017 Essential (primary) hypertension 12/15/2015 Cervicalgia 04/28/2015 Condyloma acuminatum 08/23/2013 Chronic otitis media 04/18/2012 Current smoker 04/18/2012 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 Hypertrophy of adenoids 04/18/2012 Past Medical History: Diagnosis Date Personal history [...] - (Added by TW Conv) Past Surgical History: Procedure Laterality Date MT DELIVERY ONLY Section - (Added by [employer] [facility]) MT CHOLECYSTECTOMY Cholecystectomy - (Added by [employer]) MT LIG/TRNSXJ FLP TUBE ABDL/VAG APPR UNI/BI Tubal Ligation - (Added by [employer]) Family History Problem Relation Age of Onset Lung cancer Other Malignant Lung Neoplasm - (Added by [employer] [facility]) Hypertension Other Hypertension - (Added by [employer]) Diabetes Other Diabetes Mellitus - (Added by [employer]) Social History Tobacco Use Smoking status: Every Day Packs/day: 0.75 Years: 40.00 Pack years: 30.00 Types: Cigarettes Smokeless tobacco: None Vaping Use Vaping Use: Never used Substance and Sexual Activity Alcohol use: None Drug use: Yes Frequency: 2.0 times per week Types: Marijuana Sexual activity: Defer Social History Social History Narrative Unemployed : (Added by [employer]) Current smoker : (Added by [employer]) Current smoker : 3 cigarettes per day; previously 1/2 ppd x 15 years (Added by [employer]) Review of Systems Review of Systems Musculoskeletal: Positive for arthralgias. All other systems reviewed and are negative. Physical Exam ED Triage Vitals Temp Pulse Resp BP SpO2 04/13/23 0943 04/13/23 0943 04/13/23 0943 04/13/23 0943 04/13/23 0943 36.4 ??C (97.6 ??F) 94 22 132/96 96 % Temp src Heart Rate Source Patient Position BP Location FiO2 (%) 04/13/23 0943 -- 04/13/23 1835 04/13/23 1835 -- Tympanic Sitting Right arm Height Height Method Weight Weight Method 04/13/23 0943 04/13/23 0943 04/13/23 0943 04/13/23 0943 1.6 m (5' 3 ) Stated 88.5 kg (195 lb) Stated Labs Reviewed COMPREHENSIVE METABOLIC PANEL - Abnormal Result Value Sodium 139 Potassium, pl 4.4 Chloride 104 CO2 24 Anion gap 11 BUN 28 (*) Creatinine 0.85 Glucose 184 Calcium 9.4 Bilirubin, total 0.2 Protein, pl 6.8 Albumin 4.0 Alk phos 99 ALT 13 AST 12 COVID-19 CORONAVIRUS RNA COVID-19 RNA Negative Narrative: Is the patient experiencing any symptoms consistent with COVID (eg. Fever, cough, shortness of breath)?->No What is the reason for testing?->Asymptomatic screening prior to procedure or surgery (Rapid) Interpretive data: Synonyms for this test include: PCR and NAAT . This test is performed using the [employer] Xpert Xpress plus assay. This is a real-time RT-PCR test intended for the qualitative detection of nucleic acid from the SARS-CoV-2. This assay has been reviewed by the FDA for Emergency Use Authorization (EUA). The performance characteristics have been verified by the performing laboratory. Results must be considered in the clinical context and a negative result does not rule out infection. Interpretive data last revised April 15, 2022. Interpretive data: Synonyms for this test include: PCR and NAAT . This test is performed using the Heal[employer]ion Xpert Xpress plus assay. This is a real-time RT-PCR test intended for the qualitative detection of nucleic acid from the SARS-CoV-2. This assay has been reviewed by the FDA for Emergency Use Authorization (EUA). The performance characteristics have been verified by the performing laboratory. Results must be considered in the clinical context and a negative result does not rule out infection. Interpretive data last revised April 15, 2022. CBC WITH AUTO DIFFERENTIAL WBC 9.5 Hgb 13.1 Hct 39.9 Plt 216 MPV 10.0 RBC 4.53 MCV 88.1 MCH 28.9 MCHC 32.8 RDW CV 13.3 RDW SD 43.0 NRBC abs 0.00 DIFFERENTIAL AUTO Neutrophil abs 6.2 Imm gran abs 0.1 Lymphocyte abs 2.2 Monocyte abs 0.7 Eosinophil abs 0.3 Basophil abs 0.1 Neutrophil pct 65.3 Imm gran pct 0.5 Lymphocyte pct 23.3 Monocyte pct 7.6 Eosinophil pct 2.8 Basophil pct 0.5 EGFR eGFR 78 POCT GLUCOSE TEST Glucose POC 143 POCT GLUCOSE TEST Glucose POC 131 XR Elbow Left 2 Views Final Result 1. Successful reduction of previously noted dislocation with suggestion of probable fracture of the coronoid process. Follow-up studies recommended Electronically signed by: Robert Paris MD XR Wrist Left 3 or More Views Final Result Distal radius demonstrates a fracture in the distribution of the radial styloid are communicated to the articular surface of the proximal carpal row. Electronically signed by: Carlin Loving M.D. XR Chest 1 Vw Portable Final Result No active cardiopulmonary disease. Electronically signed by: Carlin Loving M.D. XR Elbow Left 2 Views Final Result Posterior elbow dislocation with effusion about the left elbow. Electronically signed by: Carlin Loving M.D. Physical Exam Vitals and nursing note reviewed. Constitutional: General: She is not in acute distress. Appearance: She is obese. She is not ill-appearing or toxic-appearing. HENT: Head: Normocephalic and atraumatic. Nose: Nose normal. Mouth/Throat: Mouth: Mucous membranes are moist. Pharynx: Oropharynx is clear. Eyes: Extraocular Movements: Extraocular movements intact. Pupils: Pupils are equal, round, and reactive to light. Pulmonary: Effort: Pulmonary effort is normal. Musculoskeletal: Cervical back: Normal range of motion and neck supple. Comments: Left posterior and lateral elbow tenderness with decreased mobility, edema noted to the left lateral posterior elbow region with decreased mobility. radial pulse to the left upper extremityis intact, cap refill within normal limits, patient has full mobility to the left hand and digits. Patient has multiple areas of various healing abrasions noted to upper extremities bilaterally. Tenderness noted to radial aspect of left w+ Skin: General: Skin is warm. Capillary Refill: Capillary refill takes less than 2 seconds. Neurological: General: No focal deficit present. Mental Status: She is alert and oriented to person, place, and time. Mental status is at baseline. Psychiatric: Mood and Affect: Mood normal. MDM Medical Decision Making Differential diagnosis including but not limited to fracture, contusion This 62-year-old female presents per private car from a local [place] area with complaints of a fall. Patient states that she tripped over her dog gate and dog and landed on her left elbow. Patient sustained a posterior left elbow dislocation as well as a comminuted distal radial fractured styloid.Patient was hemodynamically stable, nontoxic and afebrile during her visit. Patient required multiple doses of IV pain medication including Norflex and fentanyl as well as IV Zofran. I spoke with my collaborating physician, Dr. Merritt, who stated that he preferred the orthopedic surgeon on-call to reduce the elbow. I then spoke with Dr. Bhandari, on-call orthopedic surgeon, who took the patient to surgery to reduce the left elbow dislocation as well as splint the left radius. Patient was then discharged per Dr. Bhandari Amount and/or Complexity of Data Reviewed Independent Historian: Details: patient Labs: Decision-making details documented in ED Course. Radiology: ordered. Decision-making details documented in ED Course. ECG/medicine tests: ordered. Details: EKG revealed sinus rhythm at 74 beats per minute with low QRS voltage in the precordial leads, no ectopy or ST abnormality noted Risk Prescription drug management. Decision regarding hospitalization. ED Course as of 04/13/232038 Time: 04/13 1115 Comment: Discussed radiology findings with Dr. Merritt, my collaborator, who advised contact orthopedic surgeon. Instructed airline stewardess to call temperature control inspector orthopedic surgeon for patient; awaiting response By: Deisi Vera NP Time: 04/13 1142 Comment: Spoke with Dr. Bhandari, orthopedic surgeon, who recommended Dr. Merritt reduce in the ER. Iinformed Dr. Bhandari that Dr. Merritt had requested ortho consult, Dr. Bhandari stated he would take patient to OR but it would be a couple hours s/t Dr. Bhandari is currently performing surgery By: Deisi Vera NP Time: 04/13 1539 Comment: Spoke with Dr. Bhandari and informed him of the distal radial fracture as well; Dr. Bhandari stated that he would splint radius while in operating room; surgery will be here soon to get patient By: Deisi Vera NP Final diagnoses: Posterior dislocation of left elbow, initial encounter Deisi Vera NP 04/13/232040 Cosigned by Leo Merritt Jr., MD at 04/15/2023 5:04 PM CDT * Destiny Bryant RN - 04/13/2023 9:46 AM CDT Fell stepping over dog gate, pain to left elbow and forearm documented in this encounter Miscellaneous Notes * Plan of Care - Jeanna Watts RN - 04/14/2023 1:23 PM CDT Goals: Clinical Goals for the Shift: Monitor VS and labs. Control pain and maintain patient safety. Summary: Patient discharged to private residence via private vehicle accompanied by friends. Discharge instructions reviewed with patient and/or agency sales representative. Mobile pharmacy medications and/or prescriptions provided. Belongings/home medications returned. Problem: Health Behavior: Goal: Understanding of discharge needs will improve Outcome: Adequate for Discharge Problem: Lack of Knowledge Goal: Knowledge of disease or condition will improve Outcome: Adequate for Discharge Problem: Lack of Knowledge: Goal: Ability to develop a pain control plan will improve Outcome: Adequate for Discharge Goal: Ability to identify pain intensity on a pain scale and rate it consistently will improve Outcome: Adequate for Discharge Goal: Ability to notify healthcare provider of pain before it becomes unmanageable or unbearable will improve Outcome: Adequate for Discharge Problem: Medication: Goal: Satisfaction with pain management regimen will improve Outcome: Adequate for Discharge Problem: Sensory: Goal: Ability to identify factors that increase the pain will improve Outcome: Adequate for Discharge Goal: Pain level will decrease Outcome: Adequate for Discharge Problem: Activity: Goal: Ability to return to normal activity level will improve Outcome: Adequate for Discharge Problem: Lack of Knowledge: Goal: Knowledge of the prescribed therapeutic regimen will improve Outcome: Adequate for Discharge Problem: Coping: Goal: Ability to cope will improve Outcome: Adequate for Discharge Problem: Health Behavior: Goal: Identification of resources available to assist in meeting health care needs will improve Outcome: Adequate for Discharge Problem: Sensory: Goal: Pain level will decrease Outcome: Adequate for Discharge Problem: Activity: Goal: Mobility will improve Outcome: Adequate for Discharge Problem: Lack of Knowledge: Goal: Understanding of ways to prevent future skin breakdown will improve Outcome: Adequate for Discharge Goal: Ability to identify appropriate dietary choices will improve Outcome: Adequate for Discharge Problem: Nutritional: Goal: Dietary intake will improve Outcome: Adequate for Discharge Goal: Ability to maintain a balanced intake and output will improve Outcome: Adequate for Discharge Problem: Skin Integrity: Goal: Risk for impaired skin integrity will decrease Outcome: Adequate for Discharge Goal: Ability to demonstrate warm and dry skin will improve Outcome: Adequate for Discharge Goal: Circulation will improve to fullest extent possible Outcome: Adequate for Discharge Problem: Lack of Knowledge: Goal: Ability to state ways to decrease the risk of falls will improve Outcome: Adequate for Discharge Problem: Safety: Goal: Will remain free from falls Outcome: Adequate for Discharge Goal: Will remain free from injury from falls Outcome: Adequate for Discharge Goal: Will remain free from falls and injury in home environment Outcome: Adequate for Discharge * Initial Assessments - Ekta Watters LCSW - 04/14/2023 9:01 AM CDT ANTONI Initial Assessment Interview Note Information Obtained From: Patient (04/14/23 0814) Admission Source: Pt admitted from [facility] due to fall. She reports she was attempting to stepover the dog and dog gate, and she tripped over the dog and gate and fell on her left elbow. Impression: Pt lives home alone in [place], [place]. She was in [facility] with friends. She is normally independent but does report using a walker and quad cane for mobility. Pt reported marycruz in extreme pain and does not feel she is able to care for herself at home as she is not able to use her walker/cane with the broken arm. She reports she guess she will go home and since she is unable to care for herself. Discussed possible resources for assistance. She explained her daughter and sister are both busy and would be unable to help her. Pt indicated there is no way she can gohome and is open to going somewhere for rehab. Her preference would be [facility] as it is clos e to her home. Did discussed potential of home health with pt but she continued to voice desire of rehab as she can not care for herself at home. Plan Includes: D/C to Rehab per patient request. Primary Source of Transportation: Does the patient need discharge transport arranged?: No (04/14/23813) Patient reports [facility]. Health Insurance Coverage: [facility] COMPLETE/[facility] Pharmacy: [id number] - [place], [place] - [address] [facility] [id number] Primary Care Provider: Deisi Andrews MD Prior to Admission: Primary Caregiver: Self Who does the patient or legal guardian want to receive education instruction and discharge plans for after care assistance?: Decline Support System: Children, Family members, Friends/neighbors Support system contact info (name, phone, availablity): Radha Malloy (Daughter) [phone] (M) Home Care Services: Yes Type of Home Care Services: floorworker Home care service name and phone number: [facility] Durable Medical Equipment: Walker (wheeled), Cane (3 prong) Living Arrangements: Alone Type of Residence: Apartment Steps in home?: No steps inside or outside Medication management: (Independent) (04/14/23813) SDOH: Transportation: In the past 12 months, has lack of transportation kept you from medical appointments or from getting medications?: No In the past 12 months, has lack of transportation kept you from meetings, work, or from getting things needed for daily living?: No (04/14/23816) Financial Resource: How hard is it for you to pay for the very basics like food, housing, medical care, and heating?: Not hard at all (04/14/23816) Housing: In the last 12 months, was there a time when you were not able to pay the mortgage or rent on time?: No In the last 12 months, how many places have you lived?: 1 In the last 12 months, was there a time when you did not have a steady place to sleep or slept in ashelter (including now)?: No (04/14/23817) Social Connections: In a typical week, how many times do you talk on the phone with family, friends, or neighbors?: More than three times a week How often do you get together with friends or relatives?: More than three times a week How often do you attend caodaism or oriental orthodox services?: 1 to 4 times per year Do you belong to any clubs or organizations such as caodaism groups, unions, fraternal or athletic groups, or school groups?: No How often do you attend meetings of the clubs or organizations you belong to?: Never Are you , , , , never , or living with a partner?: Never (04/14/23816) Food Insecurity: Within the past 12 months, you worried that your food would run out before you got the money to buymore.: Never true Within the past 12 months, the food you bought just didn't last and you didn't have money to get more.: Never true (04/14/23817) Behavioral Health Services: Behavioral Health Services: No (04/14/23813) Patient expects to be Discharged to: Senior Living Facility, (04/14/23813) Additional Information: Patient's Identified Problem/Goal Problem: Ensure acute medical needs are met and that patient has a safe discharge plan. Goal: Secure a discharge plan that patient/family are agreeable with and ensure patient has continuum of care. Case management will follow for discharge planning and send referrals as needed. Goals include: To assure continuity of care, To maximize coping skills, To assure patient is in a safe environment and To assure access to community resources. Plan includes: 1. Collaboration with patient, MD, direct care nurse, Casing Running Machine Tender, and other members of the health care team to assure needed interventions completed. 2. Return patient to optimal level of self-care post discharge. 3. Hand Hose Cutter will follow for Discharge Planning - interventions as needed 4. Anticipated level of care at discharge 5. Planned Discharge Disposition Dispo: Potential rehab placement. Transportation: Pt reports she has transportation. Oxygen: None DME: Walker/Quad Cane Designated CG: Eric Watters LCSW 04/14/23 9:03 AM * Plan of Care - Dwain Alvarez RN - 04/14/2023 12:19 AM CDT Problem: Health Behavior: Goal: Understanding of discharge needs will improve Outcome: Progressing Problem: Lack of Knowledge Goal: Knowledge of disease or condition will improve Outcome: Progressing Problem: Lack of Knowledge: Goal: Ability to develop a pain control plan will improve Outcome: Progressing Goal: Ability to identify pain intensity on a pain scale and rate it consistently will improve Outcome: Progressing Goal: Ability to notify healthcare provider of pain before it becomes unmanageable or unbearable will improve Outcome: Progressing Problem: Medication: Goal: Satisfaction with pain management regimen will improve Outcome: Progressing Problem: Sensory: Goal: Ability to identify factors that increase the pain will improve Outcome: Progressing Goal: Pain level will decrease Outcome: Progressing Problem: Activity: Goal: Ability to return to normal activity level will improve Outcome: Progressing Problem: Lack of Knowledge: Goal: Knowledge of the prescribed therapeutic regimen will improve Outcome: Progressing Problem: Coping: Goal: Ability to cope will improve Outcome: Progressing Problem: Health Behavior: Goal: Identification of resources available to assist in meeting health care needs will improve Outcome: Progressing Problem: Sensory: Goal: Pain level will decrease Outcome: Progressing Problem: Activity: Goal: Mobility will improve Outcome: Progressing Problem: Lack of Knowledge: Goal: Understanding of ways to prevent future skin breakdown will improve Outcome: Progressing Goal: Ability to identify appropriate dietary choices will improve Outcome: Progressing Problem: Nutritional: Goal: Dietary intake will improve Outcome: Progressing Goal: Ability to maintain a balanced intake and output will improve Outcome: Progressing Problem: Skin Integrity: Goal: Risk for impaired skin integrity will decrease Outcome: Progressing Goal: Ability to demonstrate warm and dry skin will improve Outcome: Progressing Goal: Circulation will improve to fullest extent possible Outcome: Progressing Problem: Lack of Knowledge: Goal: Ability to state ways to decrease the risk of falls will improve Outcome: Progressing Problem: Safety: Goal: Will remain free from falls Outcome: Progressing Goal: Will remain free from injury from falls Outcome: Progressing Goal: Will remain free from falls and injury in home environment Outcome: Progressing Goals: Clinical Goals for the Shift: control pain Summary: patient admitted to room 210 bed 2, patient would like to stay overnight due to pain management and nausea management. Dr Bhandari notified of patient wanting to stay and gave order to keep herand to restart home medication, blood sugar check and patient she didn't want any intervention becau se she just ate cake and wanted to wait into AM to recheck blood sugar, education on blood sugar control and diet management. Left arm elevated on 3 pillows with ice bag * Op Note - Earl Bhandari DO - 04/13/2023 5:50 PM CDT Orthopedics CLOSED REDUCTION - ELBOW (L) Brief Op Note Rody Zaidi Date of Surgery: 04/13/2023 Surgeon: Surgeon(s): Earl Bhandari DO Staff: Certified Tumor Registrar: Karishma Macias RN Scrub: Marilu Duque ST Anesthesia: General Preoperative Diagnosis: Posterior dislocation of left elbow, initial encounter [S53.125A] Left elbow coronoid process fracture 3. Left intra-articular distal radius fracture Postoperative Diagnosis: Posterior dislocation of left elbow, initial encounter [S53.125A] Left elbow coronoid process fracture 3. Left intra-articular distal radius fracture Procedure: Left elbow closed reduction Application of left long arm splint Operative Findings: Posterior elbow dislocation which easily reduced however the was instability at 30?? of elbow flexion elevated to extension. There to be a small comminuted fragment of coronoid process. Left distal radius fracture with comminution intra-articular involvement however fairly well maintained alignment Estimated Blood Loss: No blood loss documented. Intraoperative Fluids: Specimens: No specimens collected during this procedure. Implants: Nothing was implanted during the procedure Drains: * No LDAs found * Blood/Blood Products Transfused: mls Complications: None Tourniquet: None Condition on Discharge from the operating room was stable Description of operation: Patient was identified in the preoperative holding area where the left arm was confirmed to be the operative site and marked. Patient was then transferred to the operating suite and induced under general anesthesia. Time-out procedure was completed. A closed reduction maneuver was performed by applying traction inferiorly on the humerus and superiorly from the forearm while flexing the elbow and applied an anteriorly directed pressure to the olecranon the elbow was reduced. C-arm fluoroscopy was used to confirm anatomic reduction. The elbow was taken through motion did have a tendency for posterior subluxation in extension. Further imaging of the distal radius fracture revealed comminution and intra- articular evolve the top fairly well-maintained alignment. A long-arm splint was applied with stockinette, cast padding, followed by 4 in OCL which was molded to the patient's elbow at approximately 75?? of flexion. Patient was awakened anesthesia transferred to PACU stable condition Earl Bhandari DO Date: 04/13/2023 Time: 6:09 PM documented in this encounter Plan of Treatment Not on file documented as of this encounter Procedures Procedure Name Priority Date/Time Associated Diagnosis Comments GLUCOSE, RANDOM Routine 04/13/2023 10:25 PM CDT POCT GLUCOSE TEST Routine 04/13/2023 9:0 3 PM CDT POCT GLUCOSE TEST Routine 04/13/2023 6:1 0 PM CDT XR ELBOW LEFT 2 OR MORE VIEWS IP Routine 04/13/2023 6:08 PM CDT CLOSED REDUCTION - ELBOW 04/13/2023 5:48 PM CDT Posterior dislocation of left elbow, initial encounter POCT GLUCOSE TEST Routine 04/13/2023 4:4 3 PM CDT XR WRIST LEFT 3 OR MORE VIEWS ED 04/13/2023 1:46 PM CDT COVID-19 CORONAVIRUS RNA Routine 04/13/2023 12:49 PM CDT ECG 12-LEAD Routine 04/13/2023 11:53 AM CDT XR CHEST 1 VIEW ED 04/13/2023 11:51 AM CDT EGFR STAT 04/13/2023 11:30 AM CDT DIFFERENTIAL AUTO STAT 04/13/2023 11: 30 AM CDT CBC WITH AUTO DIFFERENTIAL STAT 04/13/2023 11:30 AM CDT COMPREHENSIVE METABOLIC PANEL STAT 04/13/2023 11:30 AM CDT XR ELBOW LEFT 2 OR MORE VIEWS ED 04/13/2023 10:17 AM CDT documented in this encounter Results * Glucose, random (04/13/2023 10:25 PM CDT) Glucose 154 70 - 199 mg/dL [facility] Comment: Interpretive Data Fasting glucose >/= 126 mg/dl is diagnostic for diabetes. ?? Fasting is defined as no caloric intake for at least 8 hours. Fasting glucose between 100 mg/dl to 125 mg/dl is diagnostic of prediabetes. In a patient with classic symptoms of hyperglycemia or hyperglycemic crisis, a random glucose >/= 200 mg/dl is diagnostic for diabetes. In the absence of unequivocal hyperglycemia, results should be confirmed by repeat testing. The classification and Diagnosis of Diabetes Diabetes Care 2021; 46: S19-S40. Current interpretive data was last revised 2022. Blood 04/13/2023 10:2 5 PM CDT 04/13/2023 10:28 PM CDT Result [facility] Earl Bhandari DO LAB BLOOD ORDERABLES Final Result [facility] [address] [facility] Department [place] [address] * (ABNORMAL) POCT glucose (04/13/2023 9:03 PM CDT) Glucose POC 207(H) 70 - 199 mg/dL [facility] Blood 04/13/2023 9:03 PM CDT 04/13/2023 9:03 PM CDT us Earl Bhandari DO LAB POCT ORDERABLES - COLEEN CE Final Result Performing Organization Address City/[facility]/ZIP Co de Phone Number [facility] [address] [place] [address] * POCT glucose (04/13/2023 6:10 PM CDT) Glucose POC 131 70 - 199 mg/dL [facility] Blood 04/13/2023 6:10 PM CDT 04/13/2023 6:10 PM CDT Earl Bhandari DO LAB POCT ORDERABLES - COLEEN CE Final Result Performing Organization Address [facility] Co de Phone Number [id number] [address] * XR Elbow Left 2 Views (04/13/2023 6:08 PM CDT) Anatomical Region Laterality Modality Upper Extremities, Elbow Left Compute d Radiography 04/13/2023 7:15 PM CDT Impressions 04/13/2023 7:15 PM CDT 1. Successful reduction of previously noted dislocation with suggestion of probable fracture of the coronoid process. ??Follow-up studies recommended Electronically signed by: Robert Paris MD Narrative 04/13/2023 7:15 PM CDT PROCEDURE:5 intraoperative images HISTORY: Closed reduction COMPARISON:None FINDINGS: Fluoroscopy time 14.7 seconds Limited study since it was obtained with the C-arm Irregularity is seen particularly in the lateral view possibly corresponding to the coronoid process where there may be a small fracture fragment. Within the limitations of a C-arm, the radial head is grossly intact. Procedure Note Robert Paris MD - 04/13/2023 PROCEDURE:5 intraoperative images HISTORY: Closed reduction COMPARISON:None FINDINGS: Fluoroscopy time 14.7 seconds Limited study since it was obtained with the C-arm Irregularity is seen particularly in the lateral view possibly corresponding to the coronoid process where there may be a small fracture fragment. Within the limitations of a C-arm, the radial head is grossly intact. IMPRESSION: 1. Successful reduction of previously noted dislocation with suggestion of probable fracture of the coronoid process. Follow-up studies recommended Electronically signed by: Robert Paris MD Earl Bhandari DO IMG XR PROCEDURES Final Re sult * POCT glucose (04/13/2023 4:43 PM CDT) [facility] Signature Glucose POC 143 70 - 199 mg/dL [facility] Blood 04/13/2023 4:43 PM CDT 04/13/2023 4:43 PM CDT Earl Bhandari DO LAB POCT ORDERABLES - COLEEN CE Final Result [facility] [address] [facility] Department [place] [address] * XR Wrist Left 3 or More Views (04/13/2023 1:46 PM CDT) Anatomical Region Laterality Modality Upper Extremities, Wrist Left Compute d Radiography 04/13/2023 2:43 PM CDT Impressions 04/13/2023 2:43 PM CDT Distal radius demonstrates a fracture in the distribution of the radial styloid are communicated to the articular surface of the proximal carpal row. Electronically signed by: Carlin Loving M.D. Narrative 04/13/2023 2:43 PM CDT LEFT WRIST 3 VIEWS COMPARISON: None HISTORY: fall FINDINGS: Distal radius demonstrates a fracture in the distribution of the radial styloid are communicated to the articular surface of the proximal carpal row. 1st carpometacarpal arthropathy. Distal ulnar styloid remote fracture. Procedure Note Carlin Loving MD - 04/13/2023 LEFT WRIST 3 VIEWS COMPARISON: None HISTORY: fall FINDINGS: Distal radius demonstrates a fracture in the distribution of the radial styloid are communicated to the articular surface of the proximal carpal row. 1st carpometacarpal arthropathy. Distal ulnar styloid remote fracture. IMPRESSION: Distal radius demonstrates a fracture in the distribution of the radial styloid are communicated to the articular surface of the proximal carpal row. Electronically signed by: Carlin Loving M.D. Deisi Vera NP IMG XR PROCEDURES Final Result * COVID-19 Coronavirus RNA Nasopharyngeal (04/13/2023 12:49 PM CDT) COVID-19 RNA Negative Negative [facility] Nasopharyngeal 04/13/2023 12 :49 PM CDT 04/13/2023 12:52 PM CDT Narrative [facility] - 04/13/2023 1:38 PM CDT Is the patient experiencing any symptoms consistent with COVID (eg. Fever, cough, shortness of breath)?->No What is the reason for testing?->Asymptomatic screening prior to procedure??or??surgery (Rapid) ??Interpretive data: Synonyms for this test include: PCR and NAAT . ??This test is performed using the [employer] Xpert Xpress plus assay. This is a real-time RT-PCR test intended for the qualitative detection of nucleic acid from the SARS-CoV-2. This assay has been reviewed by the FDA for Emergency Use Authorization (EUA). The performance characteristics have been verified by the performing laboratory. Results must be considered in the clinical context and a negative result does not rule out infection. Interpretive data last revised April 15, 2022. ??Interpretive data: Synonyms for this test include: PCR and NAAT . ??This test is performed using the [employer] Xpert Xpress plus assay. This is a real-time RT-PCR test intended for the qualitative detection of nucleic acid from the SARS-CoV-2. This assay has been reviewed by the FDA for Emergency Use Authorization (EUA). The performance characteristics have been verified by the performing laboratory. Results must be considered in the clinical context and a negative result does not rule out infection. Interpretive data last revised April 15, 2022. Deisi Vera NP LAB MICROBIOLOGY - GENER AL ORDERABLES Final Result [facility] [address] [facility] [place] [address] * ECG 12 lead (04/13/2023 11:53 AM CDT) 04/13/2023 11:5 3 AM CDT Narrative [facility] - 04/13/2023 3:44 PM CDT Vent Rate: 74 bpm RR Interval: 801 msec MT Interval: 136 msec QRS Duration: 103 msec QT Interval: 377 msec QTC Interval: 405 msec P-R-T [place]: 48 - 27 - 25 degrees SINUS RHYTHM LOW QRS VOLTAGE IN PRECORDIAL LEADS BORDERLINE ECG Electronically Signed By: Chino Smith ?? [facility] Deisi Vera NP ECG ORDERABLES Final Re sult [facility] * XR Chest 1 Vw Portable (04/13/2023 11:51 AM CDT) Anatomical Region Laterality Modality Body, Chest N/A Computed Radiogr aphy 04/13/2023 1:44 PM CDT Impressions 04/13/2023 1:44 PM CDT No active cardiopulmonary disease. Electronically signed by: Carlin Loving M.D. Narrative 04/13/2023 1:44 PM CDT CHEST SINGLE VIEW COMPARISON: ??None. ?? HISTORY: ??pre op ?? FINDINGS: ??Calcified pulmonary nodule left lower lobe compatible with granulomatous change. ??Right lung is clear. Cardiac silhouette and mediastinum appear unremarkable. ??Bony structures demonstrate degenerative changes. 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 Soft tissues are unremarkable. Procedure Note Carlin Loving MD - 04/13/2023 CHEST SINGLE VIEW COMPARISON: None. HISTORY: pre op FINDINGS: Calcified pulmonary nodule left lower lobe compatible with granulomatous change. Right lung is clear. Cardiac silhouette and mediastinum appear unremarkable. Bony structures demonstrate degenerative changes. 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 Soft tissues are unremarkable. IMPRESSION: No active cardiopulmonary disease. Electronically signed by: Carlin Loving M.D. Deisi Vera NP IMG XR PROCEDURES Final Result * eGFR (04/13/2023 11:30 AM CDT) eGFR 78 mL/min/1. 73 m2 [facility] Comment: Interpretive Data Reference Interval Normal ?>/= [...] NP LAB BLOOD ORDERABLES Fin al Result [facility] [address] [facility] Department [place] [address] * Differential, auto (04/13/2023 11:30 AM CDT) Pathologist [facility] [place] Neutrophil abs 6.2 1.7 - 6.5 K/cumm [facility] Imm gran abs 0.1 0.0 - 0.1 K/cumm [facility] Lymphocyte abs 2.2 0.8 - 3.3 K/cumm [facility] Monocyte abs 0.7 0.2 - 0.8 K/cumm [facility] Eosinophil abs 0.3 0.0 - 0.5 K/cumm [facility] Basophil abs 0.1 0.0 - 0.1 K/cumm [facility] Neutrophil pct 65.3 % [facility] Comment: Interpretive Data Percent cell count reference ranges are not reported, since discordance with absolute values may lead to misinterpretation of CBC data. Current Interpretive Data was last revised on 2018. Imm gran pct 0.5 % [facility] Comment: Interpretive Data Percent cell count reference ranges are not reported, since discordance with absolute values may lead to misinterpretation of CBC data. Current Interpretive Data was last revised on 2018. Lymphocyte pct 23.3 % [facility] Comment: Interpretive Data Percent cell count reference ranges are not reported, since discordance with absolute values may lead to misinterpretation of CBC data. Current Interpretive Data was last revised on 2018. Monocyte pct 7.6 % [facility] Comment: Interpretive Data Percent cell count reference ranges are not reported, since discordance with absolute values may lead to misinterpretation of CBC data. Current Interpretive Data was last revised on 2018. Eosinophil pct 2.8 % [facility] Comment: Interpretive Data Percent cell count reference ranges are not reported, since discordance with absolute values may lead to misinterpretation of CBC data. Current Interpretive Data was last revised on 2018. Basophil pct 0.5 % [facility] Comment: Interpretive Data Percent cell count reference ranges are not reported, since discordance with absolute values may lead to misinterpretation of CBC data. Current Interpretive Data was last revised on 2018. Blood 04/13/2023 11:3 0 AM CDT 04/13/2023 11:54 AM CDT us Deisi Vera NP LAB BLOOD ORDERABLES Fin al Result [facility] [address] [facility] Department [place] [address] * (ABNORMAL) Comprehensive metabolic panel (04/13/2023 11:30 AM CDT) Sodium 139 135 - 145 mmol/L [facility] Potassium, pl 4.4 3.3 - 4.9 mmol/L [facility] Chloride 104 97 - 110 mmol/L [facility] CO2 24 22 - 32 mmol/L [facility] Anion gap 11 2 - 15 mmol/L [facility] BUN 28(H) 8 - 25 mg/dL [facility] Creatinine 0.85 0.60 - 1.10 mg/dL [facility] Glucose 184 70 - 199 mg/dL [facility] Comment: Interpretive Data Fasting glucose >/= 126 mg/dl is diagnostic for diabetes. ?? Fasting is defined as no caloric intake for at least 8 hours. Fasting glucose between 100 mg/dl to 125 mg/dl is diagnostic of prediabetes. In a patient with classic symptoms of hyperglycemia or hyperglycemic crisis, a random glucose >/= 200 mg/dl is diagnostic for diabetes. In the absence of unequivocal hyperglycemia, results should be confirmed by repeat testing. The classification and Diagnosis of Diabetes Diabetes Care 2021; 46: S19-S40. Current interpretive data was last revised 2022. Calcium 9.4 8.5 - 10.3 mg/dL [facility] Bilirubin, total 0.2 0.1 - 1.2 mg/dL [facility] Protein, pl 6.8 6.5 - 8.5 g/dL [facility] Albumin 4.0 3.5 - 5.2 g/dL [facility] Alk phos 99 40 - 130 Units/L [facility] ALT 13 7 - 45 Units/L [facility] AST 12 10 - 45 Units/L [facility] Blood 04/13/2023 11:3 0 AM CDT 04/13/2023 11:54 AM CDT us Deisi Vera NP LAB BLOOD ORDERABLES Fin al Result [facility] [address] [facility] Department [place] [address] * CBC with auto differential (04/13/2023 11:30 AM CDT) Pathologist [facility] [place] WBC 9.5 3.8 - 9.9 K/cumm [facility] Hgb 13.1 11.9 - 15.5 g/dL [facility] Hct 39.9 35.6 - 45.5 % [facility] Plt 216 150 - 400 K/cumm [facility] MPV 10.0 9.1 - 12.3 fL [facility] RBC 4.53 3.90 - 5.20 M/cumm [facility] MCV 88.1 81.3 - 96.4 fL [facility] MCH 28.9 27.1 - 33.3 pg [facility] MCHC 32.8 32.3 - 35.7 g/dL [facility] RDW CV 13.3 11.1 - 14.9 % [facility] RDW SD 43.0 35.7 - 48.1 fL [facility] NRBC abs 0.00 0.00 - 0.01 K/cumm [facility] Blood 04/13/2023 11:3 0 AM CDT 04/13/2023 11:54 AM CDT Deisi Vera SERVICE ORDER EXPEDITER LAB BLOOD ORDERABLES Fin al Result [facility] [address] [facility] Department [place] [address] * XR Elbow Left 2 Views (04/13/2023 10:17 AM CDT) Anatomical Region Laterality Modality Upper Extremities, Elbow Left Compute d Radiography 04/13/2023 11:0 7 AM CDT Impressions 04/13/2023 11:07 AM CDT Posterior elbow dislocation with effusion about the left elbow. Electronically signed by: Carlin Loving M.D. Narrative 04/13/2023 11:07 AM CDT LEFT ELBOW 3 VIEWS COMPARISON: None HISTORY: pain FINDINGS: The olecranon tubercle is perched on the distal humerus. Findings are suggestive of a posterior elbow dislocation. Anterior and posterior fat pad sign suggestive of an effusion about the elbow. Degenerative changes about the left elbow. Procedure Note Carlin Loving MD - 04/13/2023 LEFT ELBOW 3 VIEWS COMPARISON: None HISTORY: pain FINDINGS: The olecranon tubercle is perched on the distal humerus. Findings are suggestive of a posterior elbow dislocation. Anterior and posterior fat pad sign suggestive of an effusion about the elbow. Degenerative changes about the left elbow. IMPRESSION: Posterior elbow dislocation with effusion about the left elbow. Electronically signed by: Carlin Loving M.D. Leo Merritt Jr., MD IMG XR PROCEDURES Fin al Result documented in this encounter Visit Diagnoses Diagnosis Posterior dislocation of left elbow- Primary Posterior dislocation of left elbow, initial encounter Closed displaced fracture of styloid process of left radius, initial encounter Posterior dislocation of left elbow, initial encounter documented in this encounter Admitting Diagnoses Diagnosis Posterior dislocation of left elbow Closed dislocation of left elbow, initial encounter documented in this encounter Administered Medications Inactive Administered Medications - up to 3 most recent administrations Medication Order MAR Action Action Date Dose Rate Site clopidogreL (PLAVIX) tablet 75 mg 75 mg, oral, Daily, First dose on Wed04/14/23 at 0900 Given 04/14/2023 9:01 AM CDT 75 mg ezetimibe (ZETIA) tablet 10 mg 10 mg, oral, Daily, First dose on Wed04/14/23 at 0900 Given 04/14/2023 9:01 AM CDT 10 mg fentaNYL (SUBLIMAZE) preservative free injection 50 mcg 50 mcg, intravenous, Once, On Wed04/13/23 at 1114, For 1 dose Given 04/13/2023 11:32 AM CDT 50 mcg fentaNYL (SUBLIMAZE) preservative free injection 50 mcg 50 mcg, intravenous, Every 1 hour, First dose on Wed04/13/23 at 1400 Given 04/13/2023 1:21 PM CDT 50 mcg fentaNYL (SUBLIMAZE) preservative free injection 50 mcg 50 mcg, intravenous, Every 1 hour PRN, 1st line for pain, Starting on Wed04/13/23 at 1434 Given 04/14/2023 11:07 AM CDT 50 mcg Given 04/14/2023 7:34 AM CDT 50 mcg FLUoxetine (PROzac) capsule 60 mg 60 mg, oral, Daily, First dose on Wed04/14/23 at 0900 Given 04/14/2023 9:00 AM CDT 60 mg HYDROmorphone (DILAUDID) injection 0.5 mg 0.5 mg, intravenous, Administer over 2 Minutes, Every 2 hours PRN, breakthrough pain, Starting on Wed04/13/23 at 1857, Phase I & Post-op Floor Given 04/13/2023 9:06 PM CDT 0.5 mg loratadine (CLARITIN) tablet 10 mg 10 mg, oral, Daily, First dose on Wed04/14/23 at 0900 Given 04/14/2023 9:01 AM CDT 10 mg losartan (COZAAR) tablet 100 mg 100 mg, oral, Daily, First dose on Wed04/14/23 at 0900 Given 04/14/2023 9:02 AM CDT 100 mg metFORMIN (GLUCOPHAGE) tablet 500 mg 500 mg, oral, 2 times daily with meals (bkfst, dinner), First dose on Wed04/14/23 at 0845, Take with food Given 04/14/2023 9:01 AM CDT 500 mg metoprolol XL (TOPROL-XL) extended release tablet 25 mg 25 mg, oral, Daily, First dose on Wed04/14/23 at 0900, Tablets that are scored may be split, but do not crush, chew, dissolve, open or otherwise manipulate tablet/capsule. Given 04/14/2023 9:02 AM CDT 25 mg ondansetron (ZOFRAN) injection 4 mg 4 mg, intravenous, Administer over 2 Minutes, Once, On Wed04/13/23 at 1114, For 1 dose Given 04/13/2023 11:31 AM CDT 4 mg ondansetron ODT (ZOFRAN-ODT) disintegrating tablet 4 mg 4 mg, oral, Once, On Wed04/14/23 at 1315, For 1 dose Given 04/14/2023 1:03 PM CDT 4 mg orphenadrine (NORFLEX) injection 60 mg 60 mg, intramuscular, Once, On Wed04/13/23 at 1425, For 1 dose, Indications: Muscle SpasmIndications:Muscle Spasm Given 04/13/2023 2:51 PM CDT 60 mg Right Ventrogluteal oxyCODONE (ROXICODONE) tablet 5 mg 5 mg, oral, Every 4 hours PRN, 1st line for pain, Starting on Wed04/13/23 at 1857, May repeat in 1 hour if pain is uncontrolled or increasing. Max 2 doses within 1 dosing interval., Indications: PainIndications:Pain Given 04/14/2023 1:03 PM CDT 5 mg Given 04/14/2023 9:01 AM CDT 5 mg Given 04/14/2023 4:48 AM CDT 5 mg promethazine (PHENERGAN) tablet 25 mg 25 mg, oral, Every 6 hours PRN, nausea, vomiting, Starting on Wed04/13/23 at 1857, If not relieved by ondansetron within 30 minutes. , Indications: Nausea and VomitingIndications:Nausea and Vomiting Given 04/13/2023 7:52 PM CDT 25 mg pseudoephedrine ER (SUDAFED) 12 hour tablet 240 mg 240 mg, oral, Daily, First dose on Wed04/14/23 at 0900, Do not crush, chew, cut, dissolve, open or otherwise manipulate tablet/capsule. Given 04/14/2023 9:01 AM CDT 240 mg sodium chloride 0.9% bolus 500 mL 500 mL, intravenous, at 1,000 mL/hr, Administer over 30 Minutes, Once, On Wed04/13/23 at 1513, For 1 dose New Bag 04/13/2023 3:14 PM CDT 500 mL 1000 mL/hr sodium chloride 0.9% flush 0.5-20 mL 0.5-20 mL, intra-catheter, Every 8 hours scheduled, First dose on Wed04/13/23 at 2200, Flush volume based on line type and size. Given 04/14/2023 4:48 AM CDT 10 mL Given 04/13/2023 9:05 PM CDT 10 mL documented in this encounter Historical Medications * This list may reflect changes made after this encounter. fluticasone propionate (FLONASE) 50 mcg/actuation nasal spray Administer 1 spray into each nostril daily nitroglycerin (NITROSTAT) 0.[address] 1 tablet (0.4 mg total) under the tongue every 5 (five) minutes as needed for chest pain FLUoxetine (PROzac) 40 mg capsule Take 60 mg by mouth daily metFORMIN (GLUCOPHAGE) 500 mg tablet Take 1 tablet (500 mg total) by mouth 2 (two) times a day with meals fexofenadine-pse udoephedrine (SAMANTHA-D 24) 180-240 mg per 24 hr tablet Take 1 tablet by mouth daily ezetimibe (ZETIA) 10 mg tablet Take 1 tablet (10 mg total) by mouth daily clopidogreL (PLAVIX) 75 mg tablet Take 1 tablet (75 mg total) by mouth daily isosorbide dinitrate (ISORDIL) 40 mg tablet Take 50 mg by mouth daily 4 ALPRAZolam (XANAX) 1 mg tablet Take 1 tablet (1 mg total) by mouth nightly as needed for anxiety 4 zolpidem (AMBIEN) 10 mg tabletIndication s:Sleep-Onset Insomnia Take 1 tablet (10 mg total) by mouth nightly as needed for sleep 4 metoprolol XL (TOPROL-XL) 25 mg extended release tablet Take 1 tablet (25 mg total) by mouth daily 3 losartan (COZAAR) 100 mg tablet Take 1 tablet (100 mg total) by mouth daily 4 added in this encounter Active and Recently Administered Medications Times are shown in CDT. Scheduled Medication Order 04/12/2023 04/13/2023 04/14/2023 clopidogreL (PLAVIX) tablet 75 mg 75 mg, oral, Daily, First dose on Wed04/14/23 at 0900 0901 (Given - Provid er: Jeanna Watts RN) ezetimibe (ZETIA) tablet 10 mg 10 mg, oral, Daily, First dose on Wed04/14/23 at 0900 0901 (Given - Provid er: Jeanna Watts RN) fentaNYL (SUBLIMAZE) preservative free injection 50 mcg (COMPLETED) 50 mcg, intravenous, Once, On Wed04/13/23 at 1114, For 1 dose 1132 (Given - Provider: Deisi Maynard RN) fentaNYL (SUBLIMAZE) preservative free injection 50 mcg (CANCELED) 50 mcg, intravenous, Every 1 hour, First dose on Wed04/13/23 at 1400 1321 (Given - Provider: Deisi Maynard RN)1500 (Not Given - Provider: Deisi Maynard RN - Reason: Order parameters not met - Comment: bp 96/54) FLUoxetine (PROzac) capsule 60 mg 60 mg, oral, Daily, First dose on Wed04/14/23 at 0900 0900 (Given - Provid er: Jeanna Watts RN) loratadine (CLARITIN) tablet 10 mg(Linked Group 1) 10 mg, oral, Daily, First dose on Wed04/14/23 at 0900 09 (Given - Provid er: Jeanna Watts RN) losartan (COZAAR) tablet 100 mg 100 mg, oral, Daily, First dose on Wed04/14/23 at 0900 09 (Given - Provid er: Jeanna Watts RN) metFORMIN (GLUCOPHAGE) tablet 500 mg 500 mg, oral, 2 times daily with meals (bkfst, dinner), First dose on Wed04/14/23 at 0845, Take with food 900 (Given - Provid er: Jeanna Watts RN) metoprolol XL (TOPROL-XL) extended release tablet 25 mg 25 mg, oral, Daily, First dose on Wed04/14/23 at 0900, Tablets that are scored may be split, but do not crush, chew, dissolve, open or otherwise manipulate tablet/capsule. 901 (Given - Provid er: Jeanna Watts RN) ondansetron (ZOFRAN) injection 4 mg (COMPLETED) 4 mg, intravenous, Administer over 2 Minutes, Once, On Wed04/13/23 at 1114, For 1 dose 1131 (Given - Provider: Deisi Maynard RN) ondansetron ODT (ZOFRAN-ODT) disintegrating tablet 4 mg (COMPLETED) 4 mg, oral, Once, On Wed04/14/23 at 1315, For 1 dose 1303 (Given - Provid er: Jeanna Watts RN) orphenadrine (NORFLEX) injection 60 mg (COMPLETED) 60 mg, intramuscular, Once, On Wed04/13/23 at 1425, For 1 dose, Indications: Muscle Spasm 1451 (Given - Provider: Deisi Maynard RN) pseudoephedrine ER (SUDAFED) 12 hour tablet 240 mg(Linked Group 1) 240 mg, oral, Daily, First dose on Wed04/14/23 at 0900, Do not crush, chew, cut, dissolve, open or otherwise manipulate tablet/capsule. 900 (Given - Provid er: Jeanna Watts, ADONAY) sodium chloride 0.9% bolus 500 mL (COMPLETED) 500 mL, intravenous, at 1,000 mL/hr, Administer over 30 Minutes, Once, On Wed04/13/23 at 1513, For 1 dose 1514 (New Bag - Provider: Deisi Maynard, RN)1627 (Stopped - Provider: Deisi Maynard, RN) sodium chloride 0.9% flush 0.5-20 mL 0.5-20 mL, intra-catheter, Every 8 hours scheduled, First dose on Wed04/13/23 at 2200, Flush volume based on line type and size. 2104 (Given - Provider: Dwain Alvarez, ADONAY) 0448 (Given - Provider: Dwain Alvarez RN) PRN Medication Order 04/12/2023 04/13/2023 04/14/2023 ALPRAZolam (XANAX) tablet 1 mg 1 mg, oral, Nightly PRN, anxiety, Starting on Wed04/14/23 at 0813 Carrier Fluids for Secondary Infusion - 0.9% Sodium Chloride 30 mL, intravenous, As needed, For priming tubing and/or flushing, Starting on Wed04/13/23 at 1857, 0-250 ml/hr to flush line after IV infusions when no maintenance IV ordered. Infuse 30mL at the same rate as the secondary infusion. Run as primary IV, not intended for KVO. fentaNYL (SUBLIMAZE) preservative free injection 50 mcg 50 mcg, intravenous, Every 1 hour PRN, 1st line for pain, Starting on Wed04/13/23 at 1434 1637 (JAN Hold - Provider: Automatic Transfer Provider - Reason: Patient not available)1839 (JAN Unhold - Provider: Automatic Transfer Provider) 0734 (Given - Provider: Jeanna Watts RN)1107 (Given - Provider: Jeanna Watts RN) HYDROmorphone (DILAUDID) injection 0.5 mg 0.5 mg, intravenous, Administer over 2 Minutes, Every 2 hours PRN, breakthrough pain, Starting on Wed04/13/23 at 1857, Phase I & Post-op Floor 210 (Not Given - Provider: Dwain Alvarez RN - Reason: Other - Comment: duplicate)2105 (Given - Provider: Dwain Alvarez RN) ondansetron (ZOFRAN) injection 4 mg 4 mg, intravenous, Administer over 2 Minutes, Every 6 hours PRN, nausea, vomiting, Starting on Wed04/13/23 at 1857, Proceed to promethazine if no relief within 30 minutes. , Indications: Nausea and Vomiting oxyCODONE (ROXICODONE) tablet 5 mg 5 mg, oral, Every 4 hours PRN, 1st line for pain, Starting on Wed04/13/23 at 1857, May repeat in 1 hour if pain is uncontrolled or increasing. Max 2 doses within 1 dosing interval., Indications: Pain 1951 (Given - Provider: Dwain Alvarez RN) 0448 (Given - Provider: Dwain Alvarez RN)0901 (Given - Provider: Jeanna Watts RN)1303 (Given - Provider: Jeanna Watts RN) promethazine (PHENERGAN) tablet 25 mg 25 mg, oral, Every 6 hours PRN, nausea, vomiting, Starting on Wed04/13/23 at 1857, If not relieved by ondansetron within 30 minutes. , Indications: Nausea and Vomiting 1951 (Given - Provider: Dwain Alvarez RN) sodium chloride 0.9% flush 0.5-20 mL 0.5-20 mL, intra-catheter, As needed, line care, Starting on Wed04/13/23 at 1857, Flush volume based on line type and size. Flush before and after each use. zolpidem (AMBIEN) tablet 5 mg 5 mg, oral, Nightly PRN, sleep, Starting on Wed04/14/23 at 0813, Indications: Sleep-Onset Insomnia Linked Groups Order Group 1: loratadine (CLARITIN) tablet 10 mgJump to med 10 mg, oral, Daily, First dose on Wed04/14/23 at 0900 And pseudoephedrine ER (SUDAFED) 12 hour tablet 240 mgJump to med 240 mg, oral, Daily, First dose on Wed04/14/23 at 0900, Do not crush, chew, cut, dissolve, open or otherwise manipulate tablet/capsule. documented in this encounter Orders Medications Ordered That Alessio ht Not Have Been Administered Count Last Ordered Date First Ordered Date ALPRAZolam (XANAX) tablet 1 mg 1 04/14/2023 zolpidem (AMBIEN) tablet 5 mg 1 04/14/2023 Carrier Fluids for Secondary Infusion - 0.9% Sodium Chloride 1 04/13/2023 ondansetron (ZOFRAN) injection 4 mg 1 04/13 sodium chloride 0.9% flush 0.5-20 mL 1 03/17 Nursing Count Last Ordered Date First Orde red Date VERIFY INFORMED CONSENT 1 04/13/2023 IV Count Last Ordered Date First Orde red Date SALINE LOCK IV 1 04/13/2023 Admission Count Last Ordered Date First Orde red Date INITIATE OBSERVATION SERVICES 1 04/14/2023 INITIATE OUTPATIENT IN A BED 1 04/13/2023 Discharge Count Last Ordered Date First Orde red Date DISCHARGE PATIENT 1 04/13/2023 CORE MEASURES Count Last Ordered Date First Ord ered Date REASON FOR NO VTE PROPHYLAXIS AT ADMISSION 1 04/13/2023 Case Request Count Last Ordered Date First Orde red Date CASE REQUEST OPERATING ROOM 1 04/13/2023 documented in this encounter Care Teams Supervisor Green End Department Relationship Specialty Start Date End Date Matti Balderas MD PCP - General Family Medicine 09/24/21 04/13/23 documented as of this encounter
--- OUTSIDE RECORDS SUMMARY | 2024-11-12 05:09 | XMS_ITS | Encounter Summary ---
Author Organization [facility] Address [address] [place] [address] Care Team Providers Care President Finance Company Name Role Phone Matti Balderas MD Primary Care Provider Encounter Details Date Type Department Care Team (Late st Contact Info) Description 06/26/2022 Orders Only [facility] Cardiology [address] [facility] [address] [place] [address] Eric Bradley MD [address] [facility] [address] [place] [address] Social History Tobacco Use Types Packs/Day Years Used Date Smoking Tobacco: Never Assessed Comments Unknown Sex and Gender Information Value Date Recorded Sex Assigned at Not on file Legal Sex Female 7:48 PM SLITTER HELPER Gender Identity Not on file Sexual Orientation Not on file documented as of this encounter Plan of Treatment Not on file documented as of this encounter Procedures Procedure Name Priority Date/Time Associated Diagnosis Comments CARDIOLOGY DOCUMENT SCAN Routine 06/26/2022 documented in this encounter Results * Cardiology Document Scan (06/26/2022) Anatomical Region Laterality Modality Other Kely Moran ADULT EDUCATOR CV CARDIAC SERVICES PROCEDUR ES Final Result documented in this encounter Visit Diagnoses Not on filedocumented in this encounter Care Teams President Finance Company Relationship Specialty Start Date End Date Matti Balderas MD PCP - General Family Medicine 09/24/21 04/13/23 documented as of this encounter
--- OUTSIDE RECORDS SUMMARY | 2024-11-12 05:09 | XMS_ITS | Encounter Summary ---
Author Organization [facility] Address [address] [place] [address] Care Team Providers Care Gas Plumbing Inspector Name Role Phone Deisi Andrews MD Primary Care Provider + Reason for Referral * Cardiology (Routine) - Closed Specialty Diagnoses / Procedures Referred By Contac t Referred To Contact Diagnoses Paroxysmal atrial fibrillation (CMS/HCC) (HCC) Procedures ECG 12 lead Jj Blevins MD Phone: tel: fax: Referral ID Status Reason Start Date Expiration Date Visits Re quested Visits Authorized [id number] Closed 08/27/2023 09/25/2024 1 1 * Diagnostic Imaging (Routine) - Closed Specialty Diagnoses / Procedures Referred By Contac t Referred To Contact Cardiology Diagnoses Mixed diabetic hyperlipidemia associated with type 2 diabetes mellitus (HCC) Paroxysmal atrial fibrillation (CMS/HCC) (HCC) Peripheral arterial disease (HCC) Coronary artery disease involving [place] coronary artery of [place] heart without angina pectoris Elevated troponin Procedures NM MPI SPECT (Rest and/or Stress) Multiple Studies Jj Blevins MD Phone: tel: fax: Referral ID Status Reason Start Date Expiration Date Visits Re quested Visits Authorized [id number] Closed 08/27/2023 09/25/2024 1 1 Reason for Visit * Reason Comments Hospital Follow Up Discharged from [facility] on 08/11/23 Dx: SOB Encounter Details Date Type Department Care Team (Latest Contact Info) Description 08/27/2023 9:00 AM CDT Office Visit [facility] Cardiology [address] [place] [address] Jj Blevins MD [facility] [address] [place] [address] Paroxysmal atrial fibrillation (CMS/HCC) (HCC) (Primary Dx); Coronary artery disease involving [place] coronary artery of [place] heart without angina pectoris; Elevated troponin; Hypertension associated with diabetes (HCC); Statin myopathy; Peripheral arterial disease (HCC); Mixed diabetic hyperlipidemia associated with type 2 diabetes mellitus (HCC); Chronic obstructive pulmonary disease, unspecified COPD type (HCC); History of CVA (cerebrovascular accident); Chronic anticoagulation Social History Tobacco Use Types Packs/Day Years [...] How often do you attend chur or zoroastrian services? 1 to 4 times per year [...] place to sleep or slept in a mcc (including now)? No 04/14/2023 Personal Safety Answer Date Recorded Have you ever been in or are you currently in a harmful physical or emotional relationship or is someone making you feel afraid or unsafe? Denies 04/13/2023 Comments Unknown Sex and Gender Information Value Date Recorded Sex Assigned at Not on file Legal Sex Female 7:48 PM BACK FACER Gender Identity Not on file Sexual Orientation Not on file documented as of this encounter Last Filed Vital Signs Vital Sign Reading Time Taken Comments Blood Pressure 118/72 08/27/2023 9:13 AM CDT Pulse 90 08/27/2023 9:13 AM CDT Temperature - - Respiratory Rate - - Oxygen Saturation 98% 08/27/2023 9:13 AM CDT Inhaled Oxygen Concentration - - Weight 83.9 kg (184 lb 14.4 oz) 08/27/2023 9:13 AM CDT Height 160 cm (5' 3 ) 08/27/2023 9:13 AM CDT Body Mass Index 32.75 08/27/2023 9:13 AM CDT documented in this encounter Progress Notes * Jj Blevins MD - 08/27/2023 9:00 AM CDT Images from the original note were not included. DATE OF VISIT: 08/27/2023 CHIEF COMPLAINT Chief Complaint Patient presents with Hospital Follow Up Discharged from [facility] on 08/11/23 Dx: SOB ASSESSMENT Diagnoses and all orders for this visit: Paroxysmal atrial fibrillation (CMS/HCC) (HCC) (Primary) - NM MPI SPECT (Rest and/or Stress) Multiple Studies; Future - ECG 12 lead Coronary artery disease involving [place] coronary artery of [place] heart without angina pectoris - NM MPI SPECT (Rest and/or Stress) Multiple Studies; Future - POCT lipid panel Elevated troponin - NM MPI SPECT (Rest and/or Stress) Multiple Studies; Future Hypertension associated with diabetes (HCC) Statin myopathy Peripheral arterial disease (HCC) - NM MPI SPECT (Rest and/or Stress) Multiple Studies; Future Mixed diabetic hyperlipidemia associated with type 2 diabetes mellitus (HCC) - NM MPI SPECT (Rest and/or Stress) Multiple Studies; Future Chronic obstructive pulmonary disease, unspecified COPD type (HCC) History of CVA (cerebrovascular accident) Chronic anticoagulation PLAN/RECOMMENDATIONS A. Fib clinically stable in Sinus rhythm with PACs. Continue current medical therapy and systemic anticoagulation for stroke risk reduction. CHADS2 Vasc score 5. On systemic anticoagulation, monitor closely for bleeding as counseled. If significant falls, bleeding, and or head injury go to ER immediately for further evaluation. -continue Eliquis 5mg BID. -continue Metoprolol 50mg BID BP controlled, goal <140/90mmHg. Monitor BP on routine basis. Call with readings. Continue consistent cardiovascular exercise, weight loss, medication compliance, and low-sodium diet. -continue Losartan 100mg daily, Metoprolol 50mg BID Lipids personally reviewed from 08/27/23 LDL 113, not controlled with goal LDL<70. Continue lifestyle modification. Continue Repatha and Zetia 10mg daily and routine lipid monitoring. No anginal symptoms. Aggressive CAD risk modification counseling performed. Continue current medical therapy. Notify office immediately with anginal symptoms or new limitations. -Continue clopidogrel 75 mg daily indefinitely or until otherwise advised. Monitor for bleeding. -obtain Lexiscan nuclear stress test to assess for myocardial ischemia given elevated troponin during recent hospitalization with AFib with RVR and sepsis, PAD, known history of nonobstructive CAD asshe reports by [facility] years ago, diabetes mellitus. Recommendation to follow. She agrees. Lifestyle modification counseling performed. Encouraged to continue consistent weight loss, exercise, reduction in caloric intake. Follow up with vascular for PAD hx. She remains on clopidogrel 75 mg daily. Follow up with PCP for management of DM, Metformin 500mg BID -12 lead EKG today personally reviewed and discussed sinus rhythm with PACs, 76 beats per minute PR140 milliseconds QRS 88 milliseconds QT corrected 420 milliseconds borderline ECG. Over 50% of this visit counseling atrial fibrillation, peripheral arterial disease, HTN, lipids, medications, lifestyle modification. Follow up in the office in 2 months or sooner as needed. Thank you for allowing me the privilege of participating in the care this very pleasant patient. Please do not hesitate to contact me with any additional questions or concerns. SHANAE Cruz is a 62 y.o. female with a PMHx of peripheral [...] Zetia 10mg daily. Taking Metoprolol 50mg BID. MEDICAL HISTORY Past Medical History: Diagnosis Date [...] Generalized osteoarthritis - (Added by TW Conv) SOCIAL HISTORY reports that she has been smoking cigarettes. She has a 30.00 pack-year smoking history. She does not have [...] hr tablet FLUoxetine (PROzac) 40 mg capsule losartan (COZAAR) 100 mg tablet metFORMIN (GLUCOPHAGE) 500 mg tablet metoprolol tartrate (LOPRESSOR) 50 mg immediate release tablet nitroglycerin (NITROSTAT) 0.4 mg SL tablet traZODone (DESYREL) 50 mg tablet ALPRAZolam (XANAX) 1 mg tablet fluticasone propionate (FLONASE) 50 mcg/actuation nasal spray isosorbide dinitrate (ISORDIL) 40 mg tablet zolpidem (AMBIEN) 10 mg tablet metoprolol XL (TOPROL-XL) 25 mg extended release tablet ALLERGIES Allergies Allergen Reactions Penicillins Hives Reaction: Hives, Fcydujd-Aaj-Tde Reductase Inhibitors Muscle pain Venom-Honey Bee Swelling [...] and are negative. PHYSICAL EXAM Vitals BP 118/72 (BP Location: Left arm, Patient Position: Sitting) Pulse 90 Ht 160 cm (5' 3 ) Wt 83.9 kg (184 lb 14.4 oz) SpO2 98% BMI 32.75 kg/m?? Weight: 83.9 kg (184 lb 14.4 oz) Height: 160 cm (5' 3 ) Body mass index is 32.75 kg/m??. Physical Exam Vitals reviewed. Constitutional: General: [...] Total, POC 206 mg/dL 08/07/2023 2D echo [facility]: EF 60 65% grade 1 diastolic dysfunction mild MR/TR, normal left atrial size and LV wall thickness I have personally reviewed and analyzed EKG, electronic medical record, and bloodwork/lipids. Tomer Blevins MD, [facility] This note is dictated and transcribed using [employer] Direct Software. Collections Representative variancesmay occur. Despite proofreading, typographical errors may occur. documented in this encounter Plan of Treatment Not on file documented as of this encounter Procedures Procedure Name Priority Date/Time Associated Diagnosis Comments POCT LIPID PANEL Routine 08/27/2023 12:3 0 PM CDT Coronary artery disease involving [place] coronary artery of [place] heart without angina pectoris ECG 12-LEAD Routine 08/27/2023 Paroxysmal atrial fibrillation (CMS/HCC) (HCC) documented in this encounter Results * NM MPI SPECT (Rest and/or Stress) Multiple Studies (09/08/2023 10:59 AM CDT) Anatomical Region Laterality Modality Body N/A Nuclear Medicine 09/08/2023 8:18 AM CDT Narrative 09/08/2023 5:02 PM CDT [facility] Cardiology [address] [address] [address], [place] [address] P:[phone] P:[phone] MPI Imaging Report Patient Name: ARNOLD CRUZ J : 1960 Study Date: 09/08/2023 8:18:32 AM Gender: F Tech: JO MILLIGAN Location: [place] Ref.Provider: JJ BLEVINS Height(Cm): 160 BSA: Weight(Kg): 83.9 BMI: 32.77Order Provider: JJ BLEVINS - Physician: Referring Physician: Dr. Andrews. HCG Physician: Tomer Blevins M.D. Interpreting Physician: Ney Gaines M.D. Stress Supervision: Ney Gaines M.D. Procedures: Myocardial perfusion imaging with Tc99M Sestamibi SPECT at rest only. Stress testing not performed due to baseline A-fib with RVR. Indications: Coronary Artery Disease. PAF. PAD. Elevated Troponin, Hypertension, Diabetes, High Cholesterol, and Smoker. Findings: Procedural Findings: One day rest only images. Tc99m Sestamibi injected IV at rest was 10.3 millicuries. Baseline heart rate was 145 BPM. Baseline blood pressure was 140/84 mmHg. Perfusion Findings: Normal perfusion imaging. Technical quality of study is excellent. Conclusions: Resting myocardial perfusion imaging is normal. Stress was not performed and therefore no stress imaging performed. Patient was sent to the emergency department because of AF with RVR. Electronically Signed By: Jose A Gaines MD 2023-09-08 17:02:44 CDT Electronically Signed By: Jose A Gaines MD 2023-09-08 17:02:44 CDT CC: CC: Procedure Note Jose A Gaines MD - 09/08/2023 [facility] Cardiology [address] [address] [address] [place] [address] P:[phone] P:[phone] MPI Imaging Report Patient Name: ARNOLD CRUZ JPatihernandez ID: [id number] : [id number] Date: 09/08/2023 8:18:32 AM Gender: FAccession #: [id number] Tech: , CNIALocation: [place] Ref.Provider: Mickie BLEVINSight(Cm): 160 BSA: Weight(Kg): 83.9 BMI: 32.77Order Provider: JJ BLEVINS - Physician: Referring Physician: Dr. Andrews. HCG Physician: Tomer Blevins M.D.Interpreting Physician: Ney Gaines M.D. Stress Supervision: Ney Gaines M.D. Procedures: Myocardial perfusion imaging with Tc99M Sestamibi SPECT at rest only.Stress testing not performed due to baseline A-fib with RVR. Indications: Coronary Artery Disease. PAF. PAD. Elevated Troponin, Hypertension,Diabetes, High Cholesterol, and Smoker. Findings: Procedural Findings: One day rest only images. Tc99m Sestamibi injected IV at rest was 10.3millicuries. Baseline heart rate was 145 BPM. Baseline blood pressure was 140/84mmHg. Perfusion Findings: Normal perfusion imaging. Technical quality of study is excellent. Conclusions: Resting myocardial perfusion imaging is normal. Stress was not performedand therefore no stress imaging performed. Patient was sent to the emergency departmentbecause of AF with RVR. Electronically Signed By: Jose A Gaines MD 2023-09-08 17:02:44 CDT Electronically Signed By: Jose A Gaines MD 2023-09-08 17:02:44 CDT CC: CC: us Jj Blevins MD IMG NM PROCEDURES Final Result * POCT lipid panel (08/27/2023 12:30 PM CDT) Pathologist [facility] Cholesterol, POC 206 mg/dL Comment:GLU = 121 HDL, POC 34 mg/dL Triglycerides, POC 294 mg/dL LDL Cholesterol POC 113 mg/dL Chol/HDL Ratio, POC 3.3 Non-HDL Cholesterol, POC 171 mg/dL Cholesterol Total, POC 206 mg/dL Capillary blood 08/27/2023 1 2:30 PM CDT us Jj Blevins MD POINT OF CARE TEST ORDER JENNIFER Final Result * ECG 12 lead (08/27/2023) us Jj Blevins MD ECG ORDERABLES Edited R esult - Final documented in this encounter Visit Diagnoses Diagnosis Paroxysmal atrial fibrillation (CMS/HCC) (HCC)- Primary Atrial fibrillation Coronary artery disease involving [place] coronary artery of [place] heart without angina pectoris Elevated troponin Other abnormal blood chemistry Hypertension associated with diabetes (HCC) Unspecified essential hypertension Statin myopathy Toxic myopathy Peripheral arterial disease (HCC) Unspecified peripheral vascular disease Mixed diabetic hyperlipidemia associated with type 2 diabetes mellitus (HCC) Chronic obstructive pulmonary disease, unspecified COPD type (HCC) History of CVA (cerebrovascular accident) Transient ischemic attack (TIA), and cerebral infarction without residual deficits Chronic anticoagulation Encounter for long-term (current) use of anticoagulants Mixed diabetic hyperlipidemia associated with type 2 diabetes mellitus (HCC) Paroxysmal atrial fibrillation (CMS/HCC) (HCC) Atrial fibrillation Peripheral arterial disease (HCC) Unspecified peripheral vascular disease Coronary artery disease involving [place] coronary artery of [place] heart without angina pectoris Elevated troponin Other abnormal blood chemistry documented in this encounter Discontinued Medications Medication Sig Discontinue Reason Start Date End Da te metoprolol XL (TOPROL-XL) 25 mg extended release tablet Take 1 tablet (25 mg total) by mouth daily Dose adjustment 08/27/2023 documented as of this encounter Historical Medications * This list may reflect changes made after this encounter. traZODone (DESYREL) 50 mg tablet Take 1 tablet (50 mg total) by mouth nightly as needed 02/22/2023 albuterol HFA (PROVENTIL HFA,VENTOLIN HFA,PROAIR HFA) 90 mcg/actuation inhaler INHALE 2 PUFFS BY MOUTH FOUR TIMES DAILY NEEDED FOR SHORTNESS OF BREATH OR WHEEZING 12/15/2015 evolocumab (Repatha SureClick) 140 mg/mL pen injector 05/29/2022 4 Eliquis 5 mg tablet Take 1 tablet (5 mg total) by mouth every 12 (twelve) hours 4 metoprolol tartrate (LOPRESSOR) 50 mg immediate release tablet Take 1 tablet (50 mg total) by mouth every 12 (twelve) hours 4 added in this encounter Care Teams Gas Plumbing Inspector Relationship Specialty Start Date End Date Deisi Andrews MD [address] [place] [address] DR OLIVERA [address] [place] [id number] PCP - General Family Medicine 04/14/23 documented as of this encounter
--- OUTSIDE RECORDS SUMMARY | 2024-11-12 05:09 | XMS_ITS | Encounter Summary ---
Author Organization [facility] Address [address] [place] [address] Care Team Providers Care Ob Scrub Tech Name Role Phone Matti Balderas MD Primary Care Provider [phone] Encounter Details Date Type Department Care Team (Late st Contact Info) Description 06/25/2022 Orders Only [facility] Cardiology [address] [place] [address] Liliana Thomas MD [address] [place] [address] Social History Tobacco Use Types Packs/Day Years Used Date Smoking Tobacco: Never Assessed Comments Unknown Sex and Gender Information Value Date Recorded Sex Assigned at Not on file Legal Sex Female 7:48 PM MEND WORKER Gender Identity Not on file Sexual Orientation Not on file documented as of this encounter Plan of Treatment Not on file documented as of this encounter Procedures Procedure Name Priority Date/Time Associated Diagnosis Comments CARDIOLOGY DOCUMENT SCAN Routine 06/25/2022 documented in this encounter Results * Cardiology Document Scan (06/25/2022) Anatomical Region Laterality Modality Other Kely Moran ALMOND BLANCHER HAND CV CARDIAC SERVICES PROCEDUR ES Final Result documented in this encounter Visit Diagnoses Not on filedocumented in this encounter Care Teams Ob Scrub Tech Relationship Specialty Start Date End Date Matti Balderas MD PCP - General Family Medicine 09/24/21 04/13/23 documented as of this encounter
--- OUTSIDE RECORDS SUMMARY | 2024-11-12 05:09 | XMS_ITS | Encounter Summary ---
Author Organization [facility] Healthcare Address [address] [place] [address] Care Team Providers Care Scientific Publications Editor Name Role Phone Deisi Andrews MD Primary Care Provider + Encounter Details Date Type Department Care Team (Late st Contact Info) Description 08/10/2023 Orders Only [facility] [address] [place] [id number] Ed Blevins MD [address] [facility] [address] [place] [address] Social History Tobacco Use Types [...] often do you attend chur ch or mandaeism services? 1 to 4 times per year 04/14/2023 Do you belong to any clubs o r organizations such as yazdanism groups, unions, fraternal or athletic groups, or [...] place to sleep or slept in a residential (including now)? No 04/14/2023 Personal Safety Answer Date Recorded Have you ever been in or are you currently in a harmful physical or emotional relationship or is someone making you feel afraid or unsafe? Denies 04/13/2023 Comments Unknown Sex and Gender Information Value Date Recorded Sex Assigned at Not on file Legal Sex Female 7:48 PM TEA AND SPICE SUPERVISOR Gender Identity Not on file Sexual Orientation Not on file documented as of this encounter Plan of Treatment Not on file documented as of this encounter Procedures Procedure Name Priority Date/Time Associated Diagnosis Comments CARDIOLOGY DOCUMENT SCAN 08/10/2023 documented in this encounter Results * CARDIOLOGY DOCUMENT SCAN (08/10/2023) Anatomical Region Laterality Modality Other Ed Blevins MD CV CARDIAC SERVICES PROC EDURES Final Result documented in this encounter Visit Diagnoses Not on filedocumented in this encounter Care Teams Scientific Publications Editor Relationship Specialty Start Date End Date Deisi Andrews MD [address] [place] [address] DR OLIVERA [address] [place] [id number] PCP - General Family Medicine 04/14/23 documented as of this encounter
--- OUTSIDE RECORDS SUMMARY | 2024-11-12 05:09 | XMS_ITS | Encounter Summary ---
Author Organization [facility] Facility Care Team Providers Care Show Host Name Role Phone Unavailable Primary Care Provider Unavailabl e Encounter Details Date Type Department Care Team (Late st Contact Info) Description 12/06/2012 12:12 PM COUNSELOR SUPERVISOR - 12/06/2012 4:00 PM COUNSELOR SUPERVISOR Hospital Encounter [facility] NALINI Montoya, Sanjeev Hess MD [address] [address] Social History Tobacco Use Types Packs/Day Years Used Date Smoking Tobacco: Never Assessed Comments Unknown Sex and Gender Information Value Date Recorded Sex Assigned at Not on file Legal Sex Female 7:48 PM COUNSELOR SUPERVISOR Gender Identity Not on file Sexual Orientation Not on file documented as of this encounter Plan of Treatment Not on file documented as of this encounter Visit Diagnoses Not on filedocumented in this encounter
--- OUTSIDE RECORDS SUMMARY | 2024-11-12 05:09 | XMS_ITS | Encounter Summary ---
Author Organization [facility] Facility Care Team Providers Care Api Developer Name Role Phone Unavailable Primary Care Provider Unavailabl e Encounter Details Date Type Department Care Team (Latest Contact Info) Description 09/21/2013 9:04 AM HEALTHCARE SOCIAL WORKER - 09/21/2013 1:47 PM HEALTHCARE SOCIAL WORKER Hospital Encounter [facility] K[facility]aid, Roxanne Starks MD [address] [facility] [address] Condyloma acuminatum; Tobacco use disorder; Other emphysema (HCC); Asthma; Obstructive sleep apnea; Osteoarthrosis; Essential hypertension; Esophageal reflux; Obesity Social History Tobacco Use Types Packs/Day Years Used Date Smoking Tobacco: Never Assessed Comments Unknown Sex and Gender Information Value Date Recorded Sex Assigned at Not on file Legal Sex Female 7:48 PM HEALTHCARE SOCIAL WORKER Gender Identity Not on file Sexual Orientation Not on file documented as of this encounter Miscellaneous Notes * Op Note - Provider, MD Ramírez - 09/21/2013 12:00 AM CST Patient: RODY CRUZ. Account: [id number] Room No: : 1960 Proc. Date: 09/21/2013 Surgeon: ROXANNE KINCAID MD Admit Date: 09/21/2013 Disch. Date: 09/21/2013 Patient Type: S PREOPERATIVE DIAGNOSIS: Anal condyloma. POSTOPERATIVE DIAGNOSIS: Anal condyloma. NAME OF PROCEDURE: Examination under anesthesia, excision and coagulation of anal condyloma. SURGEON: Roxanne Kincaid MD. SUPERVISOR COMMISSARY PRODUCTION: Linda Morris MD. ANESTHESIA: MAC. COMPLICATIONS: None. OPERATIVE NOTE FINDINGS: The patient had superficial condylomata scattered around her perianal tissues, nothing internally, and no other abnormalities noted. She did not receive antibiotics, and thromboguards were not placed due to the nature of the procedure. DESCRIPTION OF OPERATIVE PROCEDURE: The patient was brought to the operating room. IV sedation given. She was placed in the prone jackknife position, buttocks taped apart. Perianal area prepped and sterilely draped. Marcaine 0.25% with epinephrine infiltrated into the subcutaneous tissues and the intersphincteric groove. A medium anoscope introduced into the anal canal. Findings as stated above. The anal canal was normal. There were no internal condylomata. The external tags and condyloma were excised and sent to pathology. The area was debrided and cauterized. Hemostasis was good. She tolerated the procedure well and was brought to the recovery room in stable condition. COUNTS: The sponge, needle, and instrument count was correct. PRESENT STATEMENT: I was the surgeon present the entire case. SPECIMENS: Anal condyloma. FLUIDS GIVEN: See anesthesia note. BLOOD LOSS: Minimal. MD OMAIRA RAMAN/sindi TD: 09/21/2013 18:49 Authenticated by Roxanne Kincaid MD On 09/22/2013 05:13:07 PM documented in this encounter Plan of Treatment Not on file documented as of this encounter Procedures Procedure Name Priority Date/Time Associated Diagnosis Comments ELECTROCARDIOGRAPHY (ECG) 09/21/2013 DISCHARGE LABORATORY CUMULATIVE REPORT 09/21/2013 SURGICAL PATHOLOGY 09/21/2013 documented in this encounter Results * DISCHARGE LABORATORY CUMULATIVE REPORT (09/21/2013) Narrative 09/21/2013 Ordered by an unspecified provider. us Historical Provider LAB BLOOD ORDERABLES Lianne l Result * Surgical pathology (09/21/2013) Narrative 09/21/2013 Ordered by an unspecified provider. us Historical Provider LAB PATHOLOGY ORDERABLES Final Result * ELECTROCARDIOGRAPHY (ECG) (09/21/2013) Narrative 09/21/2013 Ordered by an unspecified provider. Historical Provider ECG ORDERABLES Final Res ult documented in this encounter Visit Diagnoses Diagnosis Condyloma acuminatum Tobacco use disorder Other emphysema (HCC) Other emphysema Asthma Unspecified asthma Obstructive sleep apnea Obstructive sleep apnea (adult) (pediatric) Osteoarthrosis Osteoarthrosis, unspecified whether generalized or localized, unspecified site Essential hypertension Unspecified essential hypertension Esophageal reflux Obesity Obesity, unspecified documented in this encounter
--- OUTSIDE RECORDS SUMMARY | 2024-11-12 05:09 | XMS_ITS | Encounter Summary ---
Author Organization [facility] Facility Care Team Providers Care Road Mechanic Name Role Phone Unavailable Primary Care Provider Unavailabl e Encounter Details Date Type Department Care Team (Late st Contact Info) Description 05/31/2012 12:57 PM CDT - 05/31/2012 4:00 PM T Hospital Encounter [facility] Sanjeev Stephen MD [facility] [address] [address] Other aftercare following surgery; Acute pharyngitis; Otitis media; Other specified chronic obstructive airways disease; Candidiasis of other specified sites; Tobacco use disorder Social History Tobacco Use Types Packs/Day Years Used Date Smoking Tobacco: Never Assessed Comments Unknown Sex and Gender Information Value Date Recorded Sex Assigned at Not on file Legal Sex Female 7:48 PM HAND PLUG SHAPER Gender Identity Not on file Sexual Orientation Not on file documented as of this encounter Plan of Treatment Not on file documented as of this encounter Visit Diagnoses Diagnosis Other aftercare following surgery Acute pharyngitis Otitis media Unspecified otitis media Other specified chronic obstructive airways disease Candidiasis of other specified sites Tobacco use disorder documented in this encounter
--- OUTSIDE RECORDS SUMMARY | 2024-11-12 05:09 | XMS_ITS | Encounter Summary ---
Author Organization [facility] Healthcare Address [address] [place] [address] Care Team Providers Care Aeronautical Engineer Name Role Phone Matti Balderas MD Primary Care Provider [phone] Reason for Visit * Auth/Cert (Routine) Specialty Diagnoses / Procedures Referred By Contac t Referred To Contact Diagnoses Posterior dislocation of left elbow, initial encounter Closed dislocation of left elbow, initial encounter Procedures na Referral ID Status Reason Start Date Expiration Date Visits Re quested Visits Authorized [id number] 1 1 Encounter Details Date Type Department Care Team (Late st Contact Info) Description 04/13/2023 5:47 PM CDT Anesthesia Event [facility] Operating Room [address] [place] [address] Earl Bhandari, DO [address] [place] [phone] Aldair Alegria, PLATEN PRESS OPERATOR APPRENTICE [address] [place] [phone] Anesthesia Record Procedure Summary Procedure Name Responsible Anesthesiologist Anesthesia Start Time Anesthesia Stop Time CLOSED REDUCTION - ELBOW (Left: Elbow) Earl Bhandari DO 04/13/23 1747 04/13/23 1810 Events Date Time Event Comment 04/13/2023 1644 1747 An Start 1747 An Start Data 1748 In Room 1751 An Induction The patient was reevaluated immediately before moderate or deep sedation use and before anesthesia induction. 1751 Mask general 1752 Proc Start 1754 Anesthesia Ready 180 an stop data 1806 Proc Fin 180 Out of Room 1809 Handoff to RN I completed my handoff to the receiving nurse during which we: 1. Patient identified 2. Responsible provider identified 3. Pertinent medical history reviewed 4. Procedure type and surgical course discussed 5. Intraoperative anesthetic management and any significant issues discussed 6. Expectations and concerns for postop period discussed 7. Questions solicited from receiving nurse 8. Patient disposition at the time of handoff: No value filed. 1809 An Stop 1816 Release from care Meds Name Total propofol 150 mg ketamine (KETALAR) injection 10 mg/mL 50 mg LR 600 mL * Agents Name O2 N2O Air * Blood No blood administrations on file. Lines, Drains, and Airways Type Details Placement Removal Peripheral IV Placement Date: 04/13/23; Placement Time: 1131; Catheter Size: 20 G; Orientation: Right; Location: Forearm; Site Prep: Chlorhexidine; Removal Date: 04/14/23; Removal Time: 1324; Removal Reason: Discharge 04/13/23 1131 by Deisi Maynard RN 04/14/23 1324 by Jeanna Watts RN RETIRED Surgical Site 04/13/23; 1751; Le ft; Elbow; 10/17/24 (Retired LDA, Removed/Completed by [employer] with LDA Utility); 1213 (Retired LDA, Removed/Completed by [employer] with LDA Utility) 04/13/23 1751 by Karishma Macias RN 10/17/24 1213 by Discharge Provider, Automatic documented in this encounter Social History Tobacco [...] 04/14/2023 How often do you attend chur [place] or bahai services? 1 to 4 times per year [...] on file Legal Sex Female 7:48 PM ASSISTANCE 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 Gender Identity Not on file Sexual Orientation Not on file documented as of this encounter OR Notes * Anesthesia Postprocedure Evaluation - Aldair Alegria CRNA - 04/13/2023 6:17 PM CDT Patient: Rody Zaidi Procedure Summary Date: 04/13/23 Room / Location: [facility] OPERATING ROOM 3 / [facility] OPERATING ROOM Anesthesia Start: 1746 Anesthesia Stop: 1809 Procedure: CLOSED REDUCTION - ELBOW (Left: Elbow) Diagnosis: Posterior dislocation of left elbow, initial encounter (Posterior dislocation of left elbow, initial encounter [S53.125A]) Providers: Earl Bhandari DO Surgeon: Earl Bhandari DO Anesthesia Type: general ASA Status: 3 - Emergent Anesthesia Type: general Last vitals BP 118/82 Pulse 84 Temp 36.6 ??C (97.8 ??F) (Oral) Resp 25 SpO2 95% Anesthesia Post Evaluation Patient location during evaluation: floor Patient participation: complete - patient participated Level of consciousness: fully awake Pain score: 0 Pain management: satisfactory to patient Airway patency: adequate Evidence of recall: no Cardiovascular status: acceptable and blood pressure returned to baseline Respiratory status: acceptable and room air Hydration status: acceptable Pt is: normothermic Nausea/Vomiting status: none No notable events documented. * Anesthesia Preprocedure Evaluation - Pascual Beltran CRNA - 04/13/2023 4:42 PM CDT Anesthesia Evaluation Rody Zaidi is a 62 y.o. female Procedure(s): CLOSED REDUCTION - ELBOW Pre-Op Diagnosis Codes: * Posterior dislocation of left elbow, initial encounter [S53.125A] HISTORY Past Medical History Neurological + CVA/Stroke Date of last CVA: 2006. + Psychiatric history - depression Cardiovascular + Hypertension + Hyperlipidemia + CAD + PAD/Aorta disease (stents in iliacs.) - Respiratory + COPD - chronic bronchitis. Dyspnea frequency: 2 days/week or less. Rescue inhaler use: 2 days/week or less. Musculoskeletal/Pain + Osteoarthritis Endocrine / Other + Diabetes mellitus - Diabetes type 2. Outpatient insulin use: none. + Obesity (BMI >30) Day of Surgery assessments + Possibility of assessed - ruled out by patient's provided history. Patient Active Problem List Diagnosis ??? Chronic otitis media ??? Current smoker ??? Vocal fold leukoplakia ??? Hypertrophy of adenoids ??? Condyloma acuminatum ??? Allergic rhinitis ??? Anxiety ??? Asthma ??? CAD in huslia artery ??? Cervicalgia ??? Acute exacerbation of chronic obstructive airways disease (HCC) ??? Diverticulitis ??? Essential (primary) hypertension ??? Hyperlipidemia, mixed ??? Insomnia due to medical condition ??? Diabetes (HCC) ??? Cerebrovascular accident (HCC) ??? Posterior dislocation of left elbow Past Medical History: Diagnosis Date ??? Personal history of other diseases of the digestive system History of esophageal reflux - (Added by TW Conv) ??? Personal history of other diseases of the respiratory system Personal history of asthma - (Added by TW Conv) ??? Personal history of other endocrine, nutritional and metabolic disease History of obesity - (Added by TW Conv) ??? Polyosteoarthritis Generalized osteoarthritis - (Added by TW Conv) Past Surgical History: Procedure Laterality Date ??? MI DELIVERY ONLY Section - (Added by TW Conv) ??? [place] CHOLECYSTECTOMY Cholecystectomy - (Added by TW Conv) ??? [place] LIG/TRNSXJ FLP TUBE ABDL/VAG APPR UNI/BI Tubal Ligation - (Added by TW Conv) OB History No obstetric history on file. Allergies Allergen Reactions ??? Penicillins Hives Reaction: Hives, No medications reported. Current Facility-Administered Medications: ??? [MAR Hold] fentaNYL (SUBLIMAZE) preservative free injection 50 mcg, 50 mcg, intravenous, Q1H PRN Social History Tobacco Use Smoking Status Not on file Smokeless Tobacco Not on file Alcohol Use: Not on file Substance and Sexual Activity Drug Use Not on file Family History Problem Relation Age of Onset ??? Lung cancer Other Malignant Lung Neoplasm - (Added by TW Conv) ??? Hypertension Other Hypertension - (Added by TW Conv) ??? Diabetes Other Diabetes Mellitus - (Added by TW Conv) Vitals: 04/13/23 1550 04/13/23 1555 04/13/23 1600 BP: 115/73 104/56 Pulse: 84 82 80 Resp: 20 Temp: SpO2: 96% 93% 93% PT: No results found for requested labs within last 30 days. INR: No results found for requested labs within last 30 days. APTT: No results found for requested labs within last 30 days. Hgb A1C: No results found for requested labs within last 30 days. CBC RBC: 04/13/2023: 4.53 M/cumm RDW: No results found for requested labs within last 30 days. MCHC: 04/13/2023: 32.8 g/dL MCH: 04/13/2023: 28.9 pg MCV: 04/13/2023: 88.1 fL Hct: 04/13/2023: 39.9 % Hgb: 04/13/2023: 13.1 g/dL WBC: 04/13/2023: 9.5 K/cumm MPV: 04/13/2023: 10.0 fL Platelets: 04/13/2023: 216 K/cumm RDW CV: 04/13/2023: 13.3 % RDW Sd: 04/13/2023: 43.0 fL BMP Glucose: 04/13/2023: 184 mg/dL Calcium: 04/13/2023: 9.4 mg/dL Sodium: 04/13/2023: 139 mmol/L Potassium: 04/13/2023: 4.4 mmol/L CO2: 04/13/2023: 24 mmol/L Chloride: 04/13/2023: 104 mmol/L BUN: 04/13/2023: 28 mg/dL (H) Creatinine: 04/13/2023: 0.85 mg/dL DOS Physical Exam Medical history, medications, and allergies reviewed. Attestation: I endorse the findings of the anesthesia pre-evaluation assessment dated: 04/13/2023. Airway Exam: Mallampati: IV Cervical ROM: limited extension TM distance: 2 Patient presents with thick neck. Cardiovascular Exam: Rate: regular Pulmonary Exam: LCTA, bilat Dental Exam: Upper dentures Current state: Patient's current state is cooperative and interactive. Anesthesia Plan ASA 3- emergent My patient is approved for the Anesthesia Controlled Medication protocol when under care of a PLATEN PRESS OPERATOR APPRENTICE Planned anesthesia: General Induction: Induction: intravenous. Postoperative Plan: No postoperative mechanical ventilation intended. Informed Consent: Discussed plan with PLATEN PRESS OPERATOR APPRENTICE. Anesthesia plan and risks discussed with patient. Consent and Attending signature: I and/or my designee have discussed the anesthesia plan, benefits, possible alternatives, parental presence at time of induction (if indicated), and clinically relevant risks that may include dental injury, unintentional awareness, and/or other complications. The patient and/or parent/legal guardian understand, and agree to proceed. All questions answered. documented in this encounter Plan of Treatment Not on file documented as of this encounter Visit Diagnoses Not on filedocumented in this encounter Administered Medications Inactive Administered Medications - up to 3 most recent administrations Medication Order MAR Action Action Date Dose Rate Site ketamine (KETALAR) 50 mg/5 mL (10 mg/mL) in sodium chloride 0.9% (premix) intravenous, As needed, Starting on Wed04/13/23 at 1752, Anesthesia Intra-op Given 04/13/2023 5:52 PM CDT 50 mg Lactated Ringer's (LR) infusion intravenous, Continuous PRN, Starting on Wed04/13/23 at 1745, Anesthesia Intra-op New Bag 04/13/2023 5:45 PM CDT propofoL (DIPRIVAN) 10 mg/mL IV intravenous, As needed, Starting on Wed04/13/23 at 1752, Anesthesia Intra-op Given 04/13/2023 5:52 PM CDT 150 mg documented in this encounter Care Teams Aeronautical Engineer Relationship Specialty Start Date End Date Matti Balderas MD PCP - General Family Medicine 09/24/21 04/13/23 documented as of this encounter
--- OUTSIDE RECORDS SUMMARY | 2024-11-12 05:09 | XMS_ITS | Encounter Summary ---
Author Organization [facility] Facility Care Team Providers Care Chart Calculator Name Role Phone Unavailable Primary Care Provider Unavailabl e Encounter Details Date Type Department Care Team (Late st Contact Info) Description 10/31/2013 2:16 PM SHOWROOM SALESPERSON - 10/31/2013 4:00 PM SHOWROOM SALESPERSON Hospital Encounter [facility] Ramy Hua. Perforation of tympanic membrane; Infective otitis externa Social History Tobacco Use Types Packs/Day Years Used Date Smoking Tobacco: Never Assessed Comments Unknown Sex and Gender Information Value Date Recorded Sex Assigned at Not on file Legal Sex Female 7:48 PM SHOWROOM SALESPERSON Gender Identity Not on file Sexual Orientation Not on file documented as of this encounter Plan of Treatment Not on file documented as of this encounter Visit Diagnoses Diagnosis Perforation of tympanic membrane Infective otitis externa documented in this encounter
--- OUTSIDE RECORDS SUMMARY | 2024-11-12 05:09 | XMS_ITS | Encounter Summary ---
Author Organization [facility] Medical Group Address [address] [place] [address] Care Team Providers Care Field Agent Name Role Phone Matti Balderas MD Primary Care Provider [phone] Encounter Details Date Type Department Care Team (Late st Contact Info) Description 01/06/[address] [facility] Medical Group Cardiology [address] [place] [address] Jose A Gaines MD [facility] [place] [id number] Social History Tobacco Use Types Packs/Day Years Used Date Smoking Tobacco: Never Assessed Comments Unknown Sex and Gender Information Value Date Recorded Sex Assigned at Not on file Legal Sex Female 7:48 PM VIBRATION ANALYST Gender Identity Not on file Sexual Orientation Not on file documented as of this encounter Plan of Treatment Not on file documented as of this encounter Procedures Procedure Name Priority Date/Time Associated Diagnosis Comments CARDIOLOGY DOCUMENT SCAN Routine 01/06/2023 documented in this encounter Results * Cardiology Document Scan (01/06/2023) Anatomical Region Laterality Modality Other us Jose A Gaines MD CV CARDIAC SERVICES JOYCE ADAIR Final Result documented in this encounter Visit Diagnoses Not on filedocumented in this encounter Care Teams Field Agent Relationship Specialty Start Date End Date Matti Balderas MD PCP - General Family Medicine 09/24/21 04/13/23 documented as of this encounter
--- OUTSIDE RECORDS SUMMARY | 2024-11-12 05:09 | XMS_ITS | Encounter Summary ---
Author Organization [facility] Healthcare Address [address] [place] [address] Care Team Providers Care Ultrasonic Welding Machine Operator Name Role Phone Deisi Andrews MD Primary Care Provider + Reason for Visit * Diagnostic Imaging (Routine) - Closed Specialty Diagnoses / Procedures Referred By Contac t Referred To Contact Cardiology Diagnoses Mixed diabetic hyperlipidemia associated with type 2 diabetes mellitus (HCC) Paroxysmal atrial fibrillation (CMS/HCC) (HCC) Peripheral arterial disease (HCC) Coronary artery disease involving iliamna coronary artery of iliamna heart without angina pectoris Elevated troponin Procedures NM MPI SPECT (Rest and/or Stress) Multiple Studies Ed Blevins MD Phone: tel: fax: Referral ID Status Reason Start Date Expiration Date Visits Re quested Visits Authorized [id number] Closed 08/27/2023 09/25/2024 1 1 Encounter Details Date Type Department Care Team (Latest Contact Info) Description 09/08/2023 9:15 AM CDT Ancillary Procedure [facility] Card[facility] [address] [place] [address] Mixed diabetic hyperlipidemia associated with type 2 diabetes mellitus (HCC); Paroxysmal atrial fibrillation (CMS/HCC) (HCC); Peripheral arterial disease (HCC); Coronary artery disease involving iliamna coronary artery of iliamna heart without angina pectoris; Elevated troponin Social History Tobacco Use Types Packs/Day Years [...] often do you attend chur ch or jehovah's witness services? 1 to 4 times per year 04/14/2023 Do you belong to any clubs o r organizations such as mormon groups, unions, fraternal or athletic groups, or [...] on file Legal Sex Female 7:48 PM DYNAMIC BALANCER Gender Identity Not on file Sexual Orientation Not on file documented as of this encounter Plan of Treatment Not on file documented as of this encounter Procedures Procedure Name Priority Date/Time Associated Diagnosis Comments NM MPI SPECT (REST AND/OR STRESS) MULTIPLE STUDIES Schedule Routine, Read Routine (OP Routine) 09/08/2023 10:59 AM CDT Mixed diabetic hyperlipidemia associated with type 2 diabetes mellitus (HCC) Paroxysmal atrial fibrillation (CMS/HCC) (HCC) Peripheral arterial disease (HCC) Coronary artery disease involving iliamna coronary artery of iliamna heart without angina pectoris Elevated troponin documented in this encounter Results * NM MPI SPECT (Rest and/or Stress) Multiple Studies (09/08/2023 10:59 AM CDT) Anatomical Region Laterality Modality Body N/A Nuclear Medicine 09/08/2023 8:18 AM CDT Narrative 09/08/2023 5:02 PM CDT [facility] [address] [facility] [address], [place] [address] [address] [facility] [address], [place] [address] P:[phone] P:[phone] MPI Imaging Report Patient Name: RODY CRUZ J : 1960 Study Date: 09/08/2023 8:18:32 AM Gender: F Tech: JE MILLIGANMT Location: [place] Ref.Provider: ED BLEVINS Height(Cm): 160 BSA: Weight(Kg): 83.9 BMI: 32.77Order Provider: ED BLEVINS - Physician: Referring Physician: Dr. Andrews. [...] Note Jose A Gaines MD - 09/08/2023 [facility] [address] [facility] [address], [place] [address] [address] [facility] [address], [id number] [address] P:[phone] P:[phone] MPI Imaging Report Patient Name: RODY CRUZ JPatient ID: [id number] : [id number] Date: 09/08/2023 8:18:32 AM Gender: FAccession #: [id number] [facility] , [facility] [place] Ref.Provider: Mickie BLEVINSight(Cm): 160 BSA: Weight(Kg): 83.9 BMI: 32.77Order Provider: ED BLEVINS - Physician: Referring Physician: Dr. Andrews. [...] Gaines MD 2023-09-08 17:02:44 CDT CC: CC: Ed Blevins MD [facility]ED[facility] Final Result documented in this encounter Visit Diagnoses Diagnosis Mixed diabetic hyperlipidemia associated with type 2 diabetes mellitus (HCC) Paroxysmal atrial fibrillation (CMS/HCC) (HCC) Atrial fibrillation Peripheral arterial disease (HCC) Unspecified peripheral vascular disease Coronary artery disease involving iliamna coronary artery of iliamna heart without angina pectoris Elevated troponin Other abnormal blood chemistry documented in this encounter Administered Medications Inactive Administered Medications - up to 3 most recent administrations Medication Order MAR Action Action Date Dose Rate Site tc-99m sestamibi unit dose injection 10.3 millicurie 10.3 millicurie, intravenous, Once in imaging, radiopharmaceutical, Starting on Wed09/08/23 at 0925, For 1 dose, Indications: Diagnostic RadiographyIndications:Inna gnostic Radiography Given 09/08/2023 9:25 AM CDT 10.3 millicuries documented in this encounter Orders Medications Ordered That Alessio ht Not Have Been Administered Count Last Ordered Date First Ordered Date tc-99m sestamibi unit dose i njection 10.3 millicurie 1 09/08/2023 documented in this encounter Care Teams Ultrasonic Welding Machine Operator Relationship Specialty Start Date End Date Deisi Andrews MD [address] [place] [address] [address] PCP - General Family Medicine 04/14/23 documented as of this encounter
--- OUTSIDE RECORDS SUMMARY | 2024-11-12 05:09 | XMS_ITS | Encounter Summary ---
Author Organization [facility] Healthcare Address [address] [place] [address] Care Team Providers Care Director Of Annual Giving Name Role Phone Deisi Andrews MD Primary Care Provider + Encounter Details Date Type Department Care Team (Late st Contact Info) Description 08/08/2023 Orders Only [facility] Health Information Management [address] [place] [id number] Ed Blevins MD [address] [facility] [address] [place] [address] Social History Tobacco Use Types [...] often do you attend chur ch or shinto services? 1 to 4 times per year 04/14/2023 Do you belong to any clubs o r organizations such as amish groups, unions, fraternal or athletic groups, or [...] place to sleep or slept in a detention (including now)? No 04/14/2023 Personal Safety Answer Date Recorded Have you ever been in or are you currently in a harmful physical or emotional relationship or is someone making you feel afraid or unsafe? 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 Gender Identity Not on file Sexual Orientation Not on file documented as of this encounter Plan of Treatment Not on file documented as of this encounter Procedures Procedure Name Priority Date/Time Associated Diagnosis Comments SCAN - RADIOLOGY/IMAGING 08/08/2023 SCAN - LABS 08/07/2023 documented in this encounter Results * SCAN - RADIOLOGY/IMAGING (08/08/2023) Anatomical Region Laterality Modality Other us Ed Blevins MD Edited R esult - Final * SCAN - LABS (08/07/2023) us Provider Scanning Final Result documented in this encounter Visit Diagnoses Not on filedocumented in this encounter Care Teams Director Of Annual Giving Relationship Specialty Start Date End Date Deisi Andrews MD [address] [place] [address] DR OLIVERA [address] [place] [id number] PCP - General Family Medicine 04/14/23 documented as of this encounter
--- OUTSIDE RECORDS SUMMARY | 2024-11-12 05:09 | XMS_ITS | Encounter Summary ---
Author Organization [facility] Healthcare Address [address] [place] [address] Care Team Providers Care Television Station Manager Name Role Phone Matti Balderas MD Primary Care Provider [phone] Deisi Andrews MD Primary Care Provider + Reason for Visit * Reason Comments Arm Injury * Auth/Cert (Routine) Specialty Diagnoses / Procedures Referred By Contac t Referred To Contact Diagnoses Posterior dislocation of left elbow, initial encounter Closed dislocation of left elbow, initial encounter Procedures na Referral ID Status Reason Start Date Expiration Date Visits Re quested Visits Authorized [id number] 1 1 Encounter Details Date Type Department Care Team (Late st Contact Info) Description 04/13/2023 10:05 AM CDT - 04/14/2023 1:25 PM CDT Emergency [address] [phone] [place] [address] [place] [id number] Earl Bhandari, DO [address] [place] [address] Posterior dislocation of left elbow, initial encounter (Primary Dx); Closed displaced fracture of styloid process of left radius, initial encounter Discharge Disposition: Discharge to home or self care Social History Tobacco Use Types Packs/Day Years [...] How often do you attend chur or denominational services? 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 Gender Identity Not on file Sexual Orientation Not on file documented as of this encounter Last Filed Vital Signs Vital Sign Reading Time Taken Comments Blood Pressure 167/99 04/14/2023 11:23 AM CDT Pulse 88 04/14/2023 11:23 AM CDT Temperature 36.3 ??C (97.3 ??F) 04/14/2023 11:23 AM C DT Respiratory Rate 20 04/14/2023 11:23 AM CDT Oxygen Saturation 93% 04/14/2023 11:23 AM CDT Inhaled Oxygen Concentration - - Weight 91.4 kg (201 lb 9.6 oz) 04/13/2023 6:35 P M CDT Height 160 cm (5' 3 ) 04/13/2023 6:35 PM CDT Body Mass Index 35.71 04/13/2023 6:35 PM CDT documented in this encounter Discharge Instructions * Attachments The following attachments cannot be sent through Care Everywhere. * Closed Reduction (General Information) (Spanish) * Hydrocodone/Acetaminophen (By mouth) (Spanish) documented in this encounter Medications at Time [...] mg total) by mouth daily fexofenadine-pse udoephedrine (SAMANHTA-D 24) 180-240 mg per 24 hr tablet [...] signs documented in vital signs flowsheet. 04/14/23 0943 General Chart Reviewed Yes Session Type Evaluation OT Received On 04/14/23 Safe Environment Arm band checked;Patient found in supine;Session completed in gym;Gait belt utilized for all out of bed mobility Subjective Agreeable to Therapy Subjective Comment Patient is 62 yo female admitted to [facility] following fall at home and posterior dislocation [...] per pt report Prior Function Level of [place] Independent with ADLs;Independent functional transfers;Independent with ambulation;Needs [...] self care tasks. 04/14/23 04/21/23 -- * Jacquelin Stafford, PT - 04/14/2023 11:57 AM CDT Physical [...] Therapy Additional Pertinent History Patient presents to [facility] following fall at home and posterior dislocation [...] for community distances) Prior Function Level of [place] Independent with ADLs;Independent functional transfers;Independent with ambulation;Needs [...] Conv) Past Surgical History: Procedure Laterality Date [place] DELIVERY ONLY Section - (Added by TW Conv) [place] CHOLECYSTECTOMY Cholecystectomy - (Added by TW Conv) [place] LIG/TRNSXJ FLP TUBE ABDL/VAG APPR UNI/BI Tubal [...] this encounter ED Notes * Deisi Vera GENERATING PLANT SUPERINTENDENT - 04/13/2023 10:08 AM CDT Chief complaint I tripped over the dog cage and the dog and hurt my left arm. HPI Chief Complaint Patient presents with Arm Injury HPI This 62-year-old female presents per private car from [facility] site with complaints of left elbow pain secondary [...] disease (HCC) 02/19/2023 Diverticulitis 01/21/2023 CAD in iliamna artery 10/24/2020 Hyperlipidemia, mixed 03/22/2017 Anxiety 03/01/2017 [...] Conv) Polyosteoarthritis Generalized osteoarthritis - (Added by [employer]) Past Surgical History: Procedure Laterality Date [place] DELIVERY ONLY Section - (Added by [employer] Conv) [place] CHOLECYSTECTOMY Cholecystectomy - (Added by TW Conv) [place] LIG/TRNSXJ FLP TUBE ABDL/VAG APPR UNI/BI Tubal Ligation - (Added by [employer] Conv) Family History Problem Relation Age of Onset Lung cancer Other Malignant Lung Neoplasm - (Added by [employer] Conv) Hypertension Other Hypertension - (Added by [employer]) Diabetes Other Diabetes Mellitus - (Added by [employer] Conv) Social History Tobacco Use Smoking status: Every Day Packs/day: 0.75 Years: 40.00 Pack years: 30.00 Types: Cigarettes Smokeless tobacco: None Vaping Use Vaping Use: Never used Substance and Sexual Activity Alcohol use: None Drug use: Yes Frequency: 2.0 times per week Types: Marijuana Sexual activity: Defer Social History Social History Narrative Unemployed : (Added by [employer] Conv) Current smoker : (Added by [employer]) Current smoker : 3 cigarettes per day; previously 1/2 ppd x 15 years (Added by [employer]) Review of Systems Review of Systems Musculoskeletal: [...] . This test is performed using the PinMyPet Xpert Xpress plus assay. This is a [...] . This test is performed using the PinMyPet Xpert Xpress plus assay. This is a [...] proximal carpal row. Electronically signed by: Carlin Loivng M.D. XR Chest 1 Vw Portable Final [...] ED Course as of 04/13/232038 Time: 04/13 111 Comment: Discussed radiology findings with Dr. Merritt, my collaborator, who advised contact orthopedic surgeon. Instructed launch steward to call blood bank calendar control clerk orthopedic surgeon for patient; awaiting response By: [...] surgery By: Deisi Vera NP Time: 04/13 1478 Comment: Spoke with Dr. Bhandari and informed [...] friends. Discharge instructions reviewed with patient and/or freight representative. Mobile pharmacy medications and/or prescriptions provided. [...] (04/14/23 0814) Admission Source: Pt admitted from [facility] site due to fall. She reports she was attempting to stepover the dog and dog gate, and she tripped over the dog and gate and fell on her left elbow. Impression: Pt lives home alone in [place], [place]. She was in [facility] with friends. She is normally independent but [...] somewhere for rehab. Her preference would be [facility] as it is clos e to her home. Did discussed potential of home health with pt but she continued to voice desire of rehab as she can not care for herself at home. Plan Includes: D/C to Rehab per patient request. Primary Source of Transportation: Does the patient need discharge transport arranged?: No (04/14/23813) Patient reports her care is at the [facility] site. Health Insurance Coverage: [email or web address] [place] Pharmacy: [id number] - [place], [place] - [address] [facility] [phone] Primary Care Provider: Deisi Andrews MD Prior to Admission: Primary Caregiver: Self Who does the patient or legal guardian want to receive education instruction and discharge plans for after care assistance?: Decline Support System: Children, Family members, Friends/neighbors Support system contact info (name, phone, availablity): Radha Malloy (Daughter) [phone] (M) Home Care Services: Yes 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 2. Return patient to optimal level of self-care post discharge. 3. Container Finisher will follow for Discharge Planning - interventions as needed 4. Anticipated level of care at discharge 5. Planned Discharge Disposition Dispo: Potential rehab placement. Transportation: Pt reports she has transportation. Oxygen: None DME: Walker/Quad Cane Designated CG: Denied Bell Watters LCSW 04/14/23 9:03 AM * Plan [...] 04/13/2023 Surgeon: Surgeon(s): Earl Bhandari DO Staff: Lathmaker: Karishma Macias RN Scrub: Marilu Duque ST [...] CDT) Glucose 154 70 - 199 mg/dL [facility] Comment: Interpretive Data Fasting glucose >/= [...] 5 PM CDT 04/13/2023 10:28 PM CDT us Earl Bhandari DO LAB BLOOD ORDERABLES Final Result [facility] [address] [facility] Department [place] [address] * (ABNORMAL) POCT glucose (04/13/2023 9:03 PM CDT) Glucose POC 207(H) 70 - 199 mg/dL [facility] Blood 04/13/2023 9:03 PM CDT 04/13/2023 9:03 PM CDT Earl Bhandari DO LAB POCT ORDERABLES - COLEEN CE Final Result Performing Organization Address City/[facility]/ZIP Co de Phone Number [facility] [address] [place] [address] * POCT glucose (04/13/2023 6:10 PM CDT) Glucose POC 131 70 - 199 mg/dL [facility] Blood 04/13/2023 6:10 PM CDT 04/13/2023 6:10 PM CDT Earl Bhandari DO LAB POCT ORDERABLES - COLEEN CE Final Result Performing Organization Address [facility] Co de Phone Number [facility] [address] [place] [address] * XR Elbow Left 2 Views (04/13/2023 [...] * POCT glucose (04/13/2023 4:43 PM CDT) Glucose POC 143 70 - 199 mg/dL [facility] Blood 04/13/2023 4:43 PM CDT 04/13/2023 4:43 PM CDT Earl Bhandari DO LAB POCT ORDERABLES - COLEEN CE Final Result [facility] [address] [facility] [place] [address] * XR Wrist Left 3 or More [...] 12:49 PM CDT) COVID-19 RNA Negative Negative [facility] Nasopharyngeal 04/13/2023 12 :49 PM CDT 04/13/2023 12:52 PM CDT Narrative [facility] - 04/13/2023 1:38 PM CDT Is the patient experiencing any symptoms consistent with COVID (eg. Fever, cough, shortness of breath)?->No What is the reason for testing?->Asymptomatic screening prior to procedure??or??surgery (Rapid) ??Interpretive data: Synonyms for this test include: PCR and NAAT . ??This test is performed using the PinMyPet Xpert Xpress plus assay. This is a [...] . ??This test is performed using the CepLibratone Xpert Xpress plus assay. This is a [...] MICROBIOLOGY - GENER AL ORDERABLES Final Result [facility] [address] [facility] [place] [address] * ECG 12 lead (04/13/2023 11:53 AM CDT) 04/13/2023 11:5 3 AM CDT Narrative [facility] - 04/13/2023 3:44 PM CDT Vent Rate: 74 bpm RR Interval: 801 msec [place] Interval: 136 msec QRS Duration: 103 msec QT Interval: 377 msec QTC Interval: 405 msec P-R-T [place]: 48 - 27 - 25 degrees SINUS RHYTHM LOW QRS VOLTAGE IN PRECORDIAL LEADS BORDERLINE ECG Electronically Signed By: Chino Smith ?? [facility] Deisi Vera NP ECG ORDERABLES Final Re sult [facility] * XR Chest 1 Vw Portable (04/13/2023 [...] Result * eGFR (04/13/2023 11:30 AM CDT) Pathologist [facility] eGFR 78 mL/min/1. 73 m2 [facility] Comment: Interpretive Data Reference Interval Normal [...] NP LAB BLOOD ORDERABLES Fin al Result [facility] [address] [facility] Department of Laboratories [place], [place] [id number] * Differential, auto (04/13/2023 11:30 AM CDT) Pathologist [facility] Neutrophil abs 6.2 1.7 - 6.5 K/cumm [facility] Imm gran abs 0.1 0.0 - 0.1 K/cumm [facility] Lymphocyte abs 2.2 0.8 - 3.3 K/cumm [facility] Monocyte abs 0.7 0.2 - 0.8 K/cumm [facility] Eosinophil abs 0.3 0.0 - 0.5 K/cumm [facility] Basophil abs 0.1 0.0 - 0.1 K/cumm [facility] Neutrophil pct 65.3 % [facility] Comment: Interpretive Data Percent cell count reference ranges are not reported, since discordance with absolute values may lead to misinterpretation of CBC data. Current Interpretive Data was last revised on 2018. Imm gran pct 0.5 % [facility] Comment: Interpretive Data Percent cell count reference ranges are not reported, since discordance with absolute values may lead to misinterpretation of CBC data. Current Interpretive Data was last revised on 2018. Lymphocyte pct 23.3 % [facility] Comment: Interpretive Data Percent cell count reference ranges are not reported, since discordance with absolute values may lead to misinterpretation of CBC data. Current Interpretive Data was last revised on 2018. Monocyte pct 7.6 % [facility] Comment: Interpretive Data Percent cell count reference ranges are not reported, since discordance with absolute values may lead to misinterpretation of CBC data. Current Interpretive Data was last revised on 2018. Eosinophil pct 2.8 % [facility] Comment: Interpretive Data Percent cell count reference ranges are not reported, since discordance with absolute values may lead to misinterpretation of CBC data. Current Interpretive Data was last revised on 2018. Basophil pct 0.5 % [facility] Comment: Interpretive Data Percent cell count reference ranges are not reported, since discordance with absolute values may lead to misinterpretation of CBC data. Current Interpretive Data was last revised on 2018. Blood 04/13/2023 11:3 0 AM CDT 04/13/2023 11:54 AM CDT us Deisi Vera GENERATING PLANT SUPERINTENDENT LAB BLOOD ORDERABLES Fin al Result [facility] [address] [facility] Department [place] [address] * (ABNORMAL) Comprehensive metabolic panel (04/13/2023 11:30 AM CDT) Sodium 139 135 - 145 mmol/L [facility] Potassium, pl 4.4 3.3 - 4.9 mmol/L [facility] Chloride 104 97 - 110 mmol/L [facility] CO2 24 22 - 32 mmol/L [facility] Anion gap 11 2 - 15 mmol/L [facility] BUN 28(H) 8 - 25 mg/dL [facility] Creatinine 0.85 0.60 - 1.10 mg/dL [facility] Glucose 184 70 - 199 mg/dL [facility] Comment: Interpretive Data Fasting glucose >/= [...] 2022. Calcium 9.4 8.5 - 10.3 mg/dL [facility] Bilirubin, total 0.2 0.1 - 1.2 mg/dL [facility] Protein, pl 6.8 6.5 - 8.5 g/dL [facility] Albumin 4.0 3.5 - 5.2 g/dL [facility] Alk phos 99 40 - 130 Units/L [facility] ALT 13 7 - 45 Units/L [facility] AST 12 10 - 45 Units/L [facility] Blood 04/13/2023 11:3 0 AM CDT 04/13/2023 11:54 AM CDT us Deisi Vera NP LAB BLOOD ORDERABLES Fin al Result [facility] [address] [facility] Department [place] [address] * CBC with auto differential (04/13/2023 11:30 AM CDT) WBC 9.5 3.8 - 9.9 K/cumm [facility] Hgb 13.1 11.9 - 15.5 g/dL [facility] Hct 39.9 35.6 - 45.5 % [facility] Plt 216 150 - 400 K/cumm [facility] MPV 10.0 9.1 - 12.3 fL [facility] RBC 4.53 3.90 - 5.20 M/cumm [facility] MCV 88.1 81.3 - 96.4 fL [facility] MCH 28.9 27.1 - 33.3 pg [facility] MCHC 32.8 32.3 - 35.7 g/dL [facility] RDW CV 13.3 11.1 - 14.9 % [facility] RDW SD 43.0 35.7 - 48.1 fL [facility] NRBC abs 0.00 0.00 - 0.01 K/cumm [facility] Blood 04/13/2023 11:3 0 AM CDT 04/13/2023 11:54 AM CDT us Deisi Vera NP LAB BLOOD ORDERABLES Fin al Result Performing Organization Address City/State/[facility] Co de Phone Number [facility] [address] [facility] Department [place] [address] * XR Elbow Left 2 Views (04/13/2023 [...] elbow. Electronically signed by: Carlin Loving M.D. eLo Merritt Jr., MD IMG XR PROCEDURES Fin al Result documented in this encounter Visit Diagnoses Diagnosis Posterior dislocation of left elbow, initial encounter Closed displaced fracture of styloid process of left radius, initial encounter Closed dislocation of left elbow, [...] Daily, First dose on Wed04/14/23 at 0900 0902 (Given - Provid er: Jeanna Watts RN) metFORMIN (GLUCOPHAGE) tablet 500 mg 500 mg, oral, 2 times daily with meals (bkfst, dinner), First dose on Wed04/14/23 at 0845, Take with food 09 (Given - Provid er: Jeanna Watts [...] 1 dose 1131 (Given - Provider: Deisi Maynard, ADONAY) ondansetron ODT (ZOFRAN-ODT) disintegrating tablet 4 mg (COMPLETED) 4 mg, oral, Once, On Wed04/14/23 at 1315, For 1 dose 1303 (Given - Provid er: Jeanna Watts RN) orphenadrine (NORFLEX) injection 60 mg (COMPLETED) 60 mg, intramuscular, Once, On Wed04/13/23 at 1425, For 1 dose, Indications: Muscle Spasm 1451 (Given - Provider: Deisi Maynard, ADONAY) pseudoephedrine ER (SUDAFED) 12 hour tablet 240 mg(Linked Group 1) 240 mg, oral, Daily, First dose on Wed04/14/23 at 0900, Do not crush, chew, cut, dissolve, open or otherwise manipulate tablet/capsule. 0901 (Given - Provid er: Jeanna Watts, ADONAY) [...] 2104 (Given - Provider: Dwain Alvarez, ADONAY) 044 (Given - Provider: Dwain Alvarez RN) PRN [...] Jeanna Watts RN)1107 (Given - Provider: Jeanna Watts, ADONAY) HYDROmorphone (DILAUDID) injection 0.5 mg 0.5 mg, [...] 04/13/2023 documented in this encounter Care Teams Television Station Manager Relationship Specialty Start Date End Date Matti Balderas MD PCP - General Family Medicine 09/24/21 04/13/23 Deisi Andrews MD [address] [place] [address] [address] OLIVERA [address] [place] [id number] PCP - General Family Medicine 04/14/23 documented as of this encounter
--- OUTSIDE RECORDS SUMMARY | 2024-11-12 05:09 | XMS_ITS | Encounter Summary ---
Author Organization [facility] Healthcare Address [address] [place] [address] Care Team Providers Care Hogshead Head Matcher Name Role Phone Deisi Andrews MD Primary Care Provider + Reason for Visit * Diagnostic Imaging (Routine) - Closed Specialty Diagnoses / Procedures Referred By Contac t Referred To Contact Diagnoses Elevated troponin Paroxysmal atrial fibrillation (CMS/HCC) (HCC) Procedures NM MPI SPECT (Rest and/or Stress) Multiple Studies Ed Blevins MD Phone: tel: fax: [facility] Medical Group Referral ID Status Reason Start Date Expiration Date Visits Re quested Visits Authorized [id number] Closed 09/03/2023 09/02/2024 1 1 Encounter Details Date Type Department Care Team (Latest Contact Info) Description 09/16/2023 7:45 AM CDT Ancillary Procedure [facility] Medical [facility] Cardiology [address] [place] [address] Elevated troponin; Paroxysmal atrial fibrillation (CMS/HCC) (HCC) Social History Tobacco Use Types Packs/Day [...] any clubs o r organizations such as episcopalian groups, unions, fraternal or athletic groups, or [...] place to sleep or slept in a snf (including now)? No 04/14/2023 Personal Safety Answer Date Recorded Have you ever been in or are you currently in a harmful physical or emotional relationship or is someone making you feel afraid or unsafe? Denies 04/13/2023 Comments Unknown Sex and Gender Information Value Date Recorded Sex Assigned at Not on file Legal Sex Female 7:48 PM PIANO MOVER Gender Identity Not on file Sexual Orientation Not on file documented as of this encounter Plan of Treatment Not on file documented as of this encounter Procedures Procedure Name Priority Date/Time Associated Diagnosis Comments NM MPI SPECT (REST AND/OR STRESS) MULTIPLE STUDIES Schedule Routine, Read Routine (OP Routine) 09/16/2023 9:26 AM CDT Elevated troponin Paroxysmal atrial fibrillation (CMS/HCC) (HCC) documented in this encounter Results * NM MPI SPECT (Rest and/or Stress) Multiple Studies (09/16/2023 9:26 AM CDT) Anatomical Region Laterality Modality Body N/A Nuclear Medicine 09/16/2023 7:45 AM CDT Narrative 09/17/2023 12:50 PM CDT [facility] Cardiology [address] [facility] [address] [address], [place] [address] [address] [facility] [address] [address] P:[phone] P:[phone] MPI Imaging Report Patient Name: RODY CRUZ J : 1960 Study Date: 09/16/2023 7:45:00 AM Gender: F [facility] Location: [facility] Provider: ED BLEVINS ?Height(Cm): 160 [...] imaging is normal. Recommend follow up with mold maker helper. Electronically Signed By: Tomer Blevins MD 2023-09-17 12:50:37 CDT Electronically Signed By: Tomer Blevins MD 2023-09-17 12:50:37 CDT Procedure Note Ed Blevins MD - 09/17/2023 [facility] Cardiology [address] [facility] [address], [place] [address] [address] [facility] [address], [place] [address] P:[phone] P:[phone] MPI Imaging Report Patient Name: RODY CRUZ JPatient ID: [id number] : [id number] Date: 09/16/2023 7:45:00 AM Gender: FAccession #: [id number] Tech: SRINI, CNMTLocation: [place] Ref Provider: DIMMITT, ED Height(Cm): 160 BSA: Weight(Kg): 83.9 BMI: 32.77 [...] imaging is normal. Recommend follow up with mold maker helper. Electronically Signed By: Tomer Blevins MD 2023-09-17 12:50:37 CDT Electronically Signed By: Tomer Blevins MD 2023-09-17 12:50:37 CDT Ed Blevins MD IMG NM PROCEDURES Final Result documented in this encounter Visit Diagnoses Diagnosis Elevated troponin Other abnormal blood chemistry Paroxysmal atrial fibrillation (CMS/HCC) (HCC) Atrial fibrillation documented in this encounter Administered Medications Inactive Administered Medications - up to 3 most recent administrations Medication Order MAR Action Action Date Dose Rate Site regadenoson (LEXISCAN) 0.4 mg/5 mL injection 0.4 mg 0.4 mg, intravenous, Once, On [place] 09/16/23 at 1000, For 1 dose, Administer IV push over 10 seconds., Indications: Myocardial Perfusion Imaging AdjunctIndications:Myocard ial Perfusion Imaging Adjunct Given 09/16/2023 9:26 AM CDT 0.4 mg tc-99m sestamibi unit dose injection 10.3 millicurie 10.3 millicurie, intravenous, Once in imaging, radiopharmaceutical, Starting on [place] 09/16/23 at 0841, For 1 dose, Indications: Diagnostic RadiographyIndications:Inna gnostic Radiography Given 09/16/2023 8:41 AM CDT 10.3 millicuries tc-99m sestamibi unit dose injection 33.2 millicurie 33.2 millicurie, intravenous, Once in imaging, radiopharmaceutical, Starting on [place] 09/16/23 at 0926, For 1 dose, Indications: Diagnostic RadiographyIndications:Inna gnostic Radiography Given 09/16/2023 9:26 AM CDT 33.2 millicuries documented in this encounter Care Teams Hogshead Head Matcher Relationship Specialty Start Date End Date Deisi Andrews MD [address] OL[address] [place] [address] PCP - General Family Medicine 04/14/23 documented as of this encounter
--- OUTSIDE RECORDS SUMMARY | 2024-11-12 05:09 | XMS_ITS | Encounter Summary ---
Author Organization [facility] Healthcare Address [address] [place] [address] Care Team Providers Care Housing Relocation Name Role Phone Unavailable Primary Care Provider Unavailabl e Encounter Details Date Type Department Care Team (Latest Contact Info) Description 05/17/2013 11:52 AM CDT - 05/17/2013 4:11 PM CDT Hospital Encounter [facility] OP Martir Garcia MD [address] [address] Special screening for malignant neoplasms, colon; Diverticulosis of colon; Condyloma acuminatum Social History Tobacco Use Types Packs/Day Years Used Date Smoking Tobacco: Never Assessed Comments Unknown Sex and Gender Information Value Date Recorded Sex Assigned at Not on file 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 Gender Identity Not on file Sexual Orientation Not on file documented as of this encounter Last Filed Vital Signs Vital Sign Reading Time Taken Comments Blood Pressure 132/60 05/12/2013 2:23 PM CDT Pulse 62 05/12/2013 2:23 PM CDT Temperature 36.7 ??C (98 ??F) 05/12/2013 2:23 PM CDT Respiratory Rate - - Oxygen Saturation 99% 05/12/2013 2:23 PM CDT Inhaled Oxygen Concentration - - Weight 94.3 kg (208 lb) 05/12/2013 2:23 PM CDT Height 160 cm (5' 3 ) 05/12/2013 2:23 PM CDT Body Mass Index 36.85 05/12/2013 2:23 PM CDT documented in this encounter Plan of Treatment Not on file documented as of this encounter Visit Diagnoses Diagnosis Special screening for malignant neoplasms, colon Diverticulosis of colon Diverticulosis of colon (without mention of hemorrhage) Condyloma acuminatum documented in this encounter
--- OUTSIDE RECORDS SUMMARY | 2024-11-12 05:09 | XMS_ITS | Encounter Summary ---
Author Organization 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 Name Role Phone Unavailable Primary Care Provider Unavailabl e Encounter Details Date Type Department Care Team (Late st Contact Info) Description 05/13/2012 7:21 AM CDT - 05/13/2012 4:00 PM T Hospital Encounter [facility] Mars Hahn MD PhD [address] [address] Other diseases of vocal cords; Other specified pre-operative examination Social History Tobacco Use Types Packs/Day Years Used Date Smoking Tobacco: Never Assessed Comments Unknown Sex and Gender Information Value Date Recorded Sex Assigned at Not on file 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
--- OUTSIDE RECORDS SUMMARY | 2024-11-12 05:09 | XMS_ITS | Encounter Summary ---
Author Organization [facility] Healthcare Address [address] [place] [address] Care Team Providers Care Visitor Services Assistant Name Role Phone Deisi Andrews MD Primary Care Provider + Encounter Details Date Type Department Care Team (Late st Contact Info) Description 10/27/2023 Orders Only [facility] Cardiology [address] [place] [address] Eric Bradley MD [address] [place] [address] Social History Tobacco Use Types [...] often do you attend chur ch or jew services? 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 Gender Identity Not on file Sexual Orientation Not on file documented as of this encounter Plan of Treatment Not on file documented as of this encounter Procedures Procedure Name Priority Date/Time Associated Diagnosis Comments CARDIOLOGY DOCUMENT SCAN Routine 10/26/2023 9:17 AM BRIDGE PAINTER CARDIOLOGY DOCUMENT SCAN Routine 10/25/2023 9:15 AM BRIDGE PAINTER documented in this encounter Results * Cardiology Document Scan (10/26/2023 9:17 AM BRIDGE PAINTER) Anatomical Region Laterality Modality Other us Kely Moran NP CV CARDIAC SERVICES PROCEDUR ES Final Result * Cardiology Document Scan (10/25/2023 9:15 AM BRIDGE PAINTER) Anatomical Region Laterality Modality Other us Eric Bradley MD CV CARDIAC SERVICES PROC EDURES Final Result documented in this encounter Visit Diagnoses Not on filedocumented in this encounter Care Teams Visitor Services Assistant Relationship Specialty Start Date End Date Deisi Andrews MD [address] [place] [address] PCP - General Family Medicine 04/14/23 documented as of this encounter
--- OUTSIDE RECORDS SUMMARY | 2024-11-12 05:20 | XMS_ITS | Continuity of Care Document ---
Author Organization [place] - [facility] [employer] [facility], [facility] Address [address] [place] [address] Care Team Providers Care Lead Refiner Name Role Phone DARLEEN SALGADO ZACHARY Primary Care Provider DARLEEN SALGADO ZACHARY Referring Provider Assessment Encounter Date Assessment Date Assessment LastModified by Organization Details LastModified Time 09/29/2024 09/29/2024 The patient has severe advanced primary osteoarthritis of both knee joints. She is not a candidate for total knee arthroplasty unfortunately. We will give her a course of oral prednisone this has helped in the past she will take Tylenol as needed and use ice when necessary. At her request under sterile conditions I injected both knee joints in the office today with 4 cc of 0.5% bupivacaine and 20 mg of Kenalog. Patient tolerated the procedures well. We will see how she does she states she is getting less and less relief from the cortisone injections we did talk about the possibility of doing gel shots we will get these set up for her see her back in a couple of months if necessary and proceed with gel shots see if that gives her some relief as well. The patient voiced understanding agrees above plan she will call for any further problems difficulties or questions. [email or web address] Not available 09/29/2024 12:07:19 Plan of Treatment Reminders Order Date Submit Date Provider Last Modified By Organization Details Last Modified Time Details Appointments None recorded. Lab None recorded. Referral None recorded. Procedures injection/a spiration joint/bursa (PROC) 2023 024 [email or web address] In-Office Order, Internal Use Only DO Not Attach Compendium DO Not Attach Compendium, Do Not Delete/merge, [id number] 4 11:41:26 Surgeries None recorded. Imaging None recorded. Medication Orders bupivacaine HCl 0.5 % (5 mg/mL) injection solution 2023 024 [email or web address] [id number], [address], [place], [place], [id number], 4 12:16:23 Kenalog 10 mg/mL suspension for injection 2023 024 [id number] 107 [facility] #[id number], [address], [place], [place], [id number], 4 04:24:09 prednisone 10 mg tablets in a dose pack 2023 024 [email or web address] [facility] #[id number], [address], [place], [place], [phone], 4 12:16:23 Patient TargetsNo targets recorded. Patient Instructions Encounter Date Encounter Id Patient Instructions Last Modified By Organization Details Last Modified Time 09/29/2024 [id number] viscosupplementa tion treatment* Not available 10/02/2024 11:56:29 Reason for Referral None Reported. Results Created Date Observation Date Name Description Value Unit Range Abnormal Flag Note LastModifiedBy Organization Detail LastModifiedTime 09/13/20 24 09/13/2024 XR, hand, 2 view No observ ation record ed. [email or web address] [facility] [email or web address], [place], [address], 09/13/2024 16:59:37 Result Notes None recorded. Problems Name Problem SNOMED Code Status Onset Date Resolution Date Notes Provider Name and Address Organization Details Recorded Time Neoplasm of urinary bladder 481721132 Active 2021 Not Available [facility] 4 07:30:46 Hyperchole sterolemia 93162137 Active 2016 Not Available [facility] 4 07:30:46 Chronic obstructiv e pulmonary disease 46087149 Active 2016 Not Available [facility] 4 07:30:46 Malignant neoplasm of lateral wall of urinary bladder 082658266 Active 2021 Not Available [facility] 4 07:30:46 Cobalamin deficiency 840533870 Active 2022 Not Available [facility] 4 07:30:46 Asthma 771848721 Active 2016 Not Available [facility] 4 07:30:46 Cerebrovas cular accident 467732959 Active 2016 Not Available [facility] 4 07:30:46 Osteoarthr itis of knee 281928163 Active Not Available [facility] 4 07:30:46 Injury of ribs 309616371 Active 2018 Not Available [facility] 4 07:30:46 Enthesopat hy of hip region 57155239 Active [facility] Available [facility] 4 07:30:46 Pain in left foot 1192725644507 07 Active 2020 Not Available [facility] 4 07:30:46 Depressive disorder 37563869 Active 2016 Not Available [facility] 4 07:30:46 Hypertensi ve disorder 54537865 Active 2016 Not Available [facility] 4 07:30:46 Osteoarthr itis 868601883 Active Not Available [facility] 4 07:30:46 Peripheral vascular disease 559987819 Active 2017 Not Available [facility] 4 07:30:47 Porokerato sis 538862549 Active 2020 Not Available [facility] 4 07:30:47 Obesity 711626752 Active 2016 Not Available [facility] 4 07:30:47 Tubular adenoma of colon 800385093 Active 2018 Not Available [facility] 4 07:30:47 Anxiety 86226128 Active 2016 Not Available [facility] 4 07:30:47 Chronic colitis 36414100 Active 2018 Not Available [facility] 4 07:30:47 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 348279727 Active 2018 Not Available [facility] 4 07:30:47 Diabetes mellitus 77356769 Active 2016 Not Available [facility] 4 07:30:47 Mass of vocal cord Active 2018 Not Available [facility] 4 07:30:47 Malignant neoplasm of urinary bladder 093449981 Active 2022 Not Available [facility] 4 07:30:47 Chronic back pain 625094536 Active 2022 Not Available [facility] 4 07:30:46 Cigarette smoker 44048236 Active 2022 Not Available [facility] 4 07:30:47 Diverticul itis 907149306 Active 2022 Not Available [facility] 4 07:30:46 Essential hypertensi on 15599566 Active 2022 Not Available [facility] 4 07:30:47 Abdominal pain 52593663 Active 2022 Not Available [facility] 4 07:30:46 Type 2 diabetes mellitus 15248128 Active 2022 Not Available [facility] 4 07:30:47 Bilateral osteoarthr itis of knees 9357614073514 07 Active 2022 Not Available [facility] 4 07:30:46 Pain in right hip joint 6747523908039 02 Active 2022 Not Available [facility] 4 07:30:46 Trochanter ic bursitis of right hip 1783238188592 00 Active 2022 Not Available [facility] 4 07:30:46 Dysuria 81728327 Active 2022 Not Available [facility] 4 07:30:47 Acute exacerbati on of chronic obstructiv e pulmonary disease 068195884 Active 2022 Not Available [facility] 4 07:30:46 Blood in urine 86840916 Active 2022 Not Available [facility] 4 07:30:46 Vaginitis 39971883 Active 2022 Not Available [facility] 4 07:30:46 Allergic rhinitis 03839062 Active 2022 Not Available [facility] 4 07:30:47 Pain of left wrist 6774776655219 02 Active 2022 Not Available [facility] 4 07:30:46 Pain of left elbow joint 9314547466103 9104 Active 2022 Not Available [facility] 4 07:30:46 Pain of left forearm 9134492646220 09 Active 2022 Not Available [facility] 4 07:30:46 Multiple joint pain 18110948 Active 2022 Not Available [facility] 4 07:30:46 Acute sinusitis 17313414 Active 2022 Not Available [facility] 4 07:30:46 Dislocatio n of elbow joint 217999217 Active 2022 Not Available [facility] 4 07:30:47 Closed fracture of coronoid process of ulna 74747769 Active 2022 Not Available [facility] 4 07:30:47 Closed fracture of distal end of radius 45827775 Active 2022 Not Available [facility] 4 07:30:46 Dislocatio n of elbow joint 647779774 Active 2022 Not Available [facility] 4 07:30:47 Closed fracture of distal end of radius 30284826 Active 2022 Not Available [facility] 4 07:30:46 Increased frequency of urination 198038414 Active 2022 Not Available [facility] 4 07:30:46 Acute urinary tract infection 807926224 Active 2022 Not Available [facility] 4 07:30:47 Low back pain 149506353 Active 2022 Not Available [facility] 4 07:30:46 Vitamin D deficiency 31135284 Active 2022 Not Available [facility] 4 07:30:46 Hyperlipid emia 50170100 Active 2022 Not Available [facility] 4 07:30:47 Closed traumatic dislocatio n of elbow joint 9823493 Active 2022 Not Available [facility] 4 07:30:46 Nausea 747328094 Active 2022 Not Available [facility] 4 07:30:47 Heartburn 27775515 Active 2022 Not Available [facility] 4 07:30:46 Tachycardi a 3024491 Active 2022 Not Available [facility] 4 07:30:46 Cough 48914572 Active 2022 Not Available [facility] 4 07:30:47 Hypomagnes emia 758679036 Active 2023 Not Available [facility] 4 07:30:46 Eczema 14403794 Active 2023 Not Available [facility] 4 07:30:47 Pain in throat 427967398 Active 2023 Deisi Anderws MD [address] [address], [place], [address] , [facility] 4 13:19:57 Degenerati on of lumbar interverte bral disc 82152563 Active 2023 Deisi Andrews MD [address] [address], [place], [address] , [facility] 4 14:40:03 Abscess of sigmoid colon 629984250 Active 2023 Deisi Andrews MD [address] [address], [place], [address] , [facility] 4 14:40:16 Pain of bilateral knee joints 9207564567929 04 Active 2023 Masha Lozada CNA null, [facility] [employer] 4 12:11:51 Seasonal allergy 577710083 Active 2023 DARLEEN Carroll [address] [facility] [address], [place], [address] , [facility] [employer] [facility] 11:05:30 Problem Notes None recorded. Procedures Surgical History Date Name Laterality Status Provider Name and Address Organization Details Recorded Time 10/01/20 colonoscopy completed Deisi Andrews MD [address] [facility] [address], [place], [address], [facility] [employer] [facility] 01/04/2024 14:43:39 09/13/20 Transitional_Ca re_Management completed Beti Malloy RN [facility] [employer] [facility] 09/13/2023 11:04:05 01/22/20 23 Transitional_Ca re_Management completed Dorothy Viveros MA [facility] [employer] [facility] 01/21/2023 08:46:49 11/15/19 Unlisted px femur/knee completed Not Available [facility] 01/13/2023 13:51:47 Tubal Ligation completed Not Available [facility] 01/13/2023 13:51:47 section completed Not Available [facility] 01/13/2023 13:51:47 procedure on carotid body completed Not Available [facility] 01/13/2023 13:51:47 Ear Tube Placement completed Not Available [facility] 01/13/2023 13:51:47 Imaging Results None recorded. Procedure Notes None recorded. Medical Equipment None Reported. Allergies Allergen ID Allergen Name Allergen Category Reaction Reaction Severity Criticality Documentation Date Start Date Code Code System Note Provider Name and Address Organization Details Recorded Time 07958 wasp venoms environme nt angioedem a facial swelling moderate Not available Not available 01/13/2023 88271 RxNorm throa t swell s NATALYA Kumar [facility] [employer] 4 11:21:45 73850 simvastat in medicatio n other Not available Not available 01/13/2023 49887 RxNorm ALL SATIN S!!! can't walk NATALYA Kumar [place] [employer] [facility] [employer] 4 11:21:21 36472 Risperdal medicatio n Not available Not available Not available 01/13/2023 58392 8 RxNorm face draws up [facility] 4 11:20:46 98028 Medicinal product containin g penicilli n and acting as antibacte rial agent (product) medicatio n rash Not available Not available 01/13/2023 73364 05 SNOMED Deisi Andrews MD [address] [facility] [address], [place], [address] [place] [address] 3 12:22:06 81036 morphine medicatio n other Not available Not available 01/13/2023 7052 RxNorm Not Available [facility] 3 13:57:09 56729 Haldol medicatio n Not available Not available Not available 01/13/2023 93360 9 RxNorm face draws up MashaNATALYA Conklin, [facility] 4 11:20:29 55874 Halcion medicatio n other Not available Not available 01/13/2023 58978 3 RxNorm face draws up [facility] 4 11:19:53 Medications Name Sig Start Date Stop Date Status Note LastModified by Organization Details LastModified Time celecoxib 200 mg capsule TAKE 1 CAPSULE BY MOUTH EVERY DAY 08/24 completed Not Available Not Available Not Available fluoxetin e 40 mg capsule TAKE 1 CAPSULE BY MOUTH DAILY active Not Available Not Available No t Available cyclobenz aprine 10 mg tablet TAKE 1 TABLET BY MOUTH THREE TIMES DAILY NEEDED active Not Available Not Available No t Available furosemid e 40 mg tablet TAKE 1 TABLET BY MOUTH ONCE DAILY 01/14 completed Not Available Not Available Not Available methocarb richar 500 mg tablet 09/07 completed Not Available Not Available Not Available Nicotrol NS 10 mg/mL nasal spray INHALE 1 CARTRIDG E BY MOUTH DAILY NEEDED FOR active Not Available Not Available No t Available metformin 500 mg tablet TAKE 1 TABLET BY MOUTH TWICE DAILY active Not Available Not Available No t Available cilostazo l 100 mg tablet TAKE 1 TABLET BY MOUTH TWICE DAILY active Not Available Not Available No t Available prednison e 10 mg tablet TAKE 1 TABLET BY MOUTH THREE TIMES DAILY FOR 3 DAYS. THEN 1 TABLET TWICE DAILY FOR 2 DAYS. THEN 1 TABLET DAILY FOR 1 DAY active Not Available Not Available No t Available oxybutyni n chloride ER 15 mg tablet,ex tended release 24 hr TAKE 1 TABLET BY MOUTH DAILY active Not Available Not Available No t Available doxycycli ne hyclate 100 mg capsule TAKE 1 CAPSULE BY MOUTH TWICE DAILY FOR 10 DAYS 09/27 completed Not Available Not Available Not Available cefuroxim e axetil 250 mg tablet TK 1 T PO BID 09/07 completed Not Available Not Available Not Available atorvasta tin 20 mg tablet TAKE 1 TABLET BY MOUTH EVERY DAY AT BEDTIME 04/10 completed Not Available Not Available Not Available nicotine 14 mg/24 hr daily transderm al patch APPLY 1 PATCH ON SKIN ONCE DAILY 01/14 completed Not Available Not Available Not Available ipratropi um 0.5 mg-albute rol 3 mg (2.5 mg base)/3 mL nebulizat ion soln Inhale 3 mL 4 times a day by nebuliza tion route for 30 days. 09/07 completed Not Available Not Available Not Available clindamyc in HCl 300 mg capsule TAKE 1 CAPSULE BY MOUTH EVERY 8 HOURS 01/14 completed Not Available Not Available Not Available albuterol sulfate 2.5 mg/3 mL (0.083 %) solution for nebulizat ion USE 1 VIAL VIA NEBULIZE R EVERY 6 HOURS NEEDED active Not Available Not Available No t Available trazodone 50 mg tablet TAKE 1 TABLET BY MOUTH EVERY NIGHT NEEDED FOR INSOMNIA 06/05 completed Not Available Not Available Not Available cetirizin e 10 mg tablet TK 1 T PO QD PRN 2023 active Not Available Not Available Not Avai lable oxybutyni n chloride ER 10 mg tablet,ex tended release 24 hr 04/21 completed Not Available Not Available Not Available azithromy lorena 250 mg tablet TK 2 TS PO ON DAY 1, THEN TK 1 T PO D FOR 4 DAYS 01/04 completed Not Available Not Available Not Available pravastat in 40 mg tablet TAKE 1 TABLET BY MOUTH AT BEDTIME 01/14 completed Not Available Not Available Not Available ibuprofen 800 mg tablet TAKE 1 TABLET BY MOUTH THREE TIMES DAILY NEEDED FOR PAIN 06/05 completed Not Available Not Available Not Available alprazola m 1 mg tablet TAKE 1/2 (ONE-JAMES F) TABLET BY MOUTH THREE TIMES DAILY FOR ANXIETY 04/10 completed Not Available Not Available Not Available tramadol 37.5 mg-acetam inophen 325 mg tablet TK 1 - 2 TS PO Q 4 - 6 H PRN P 05/15 completed Not Available Not Available Not Available cilostazo l 50 mg tablet 09/07 completed Not Available Not Available Not Available nystatin 100,000 unit/gram topical ointment active Not Available Not Available Not Available fluconazo le 150 mg tablet TAKE 1 TABLET BY MOUTH NOW. MAY REPEAT IN 7 DAYS 08/24 completed Not Available Not Available Not Available metoprolo l succinate ER 50 mg tablet,ex tended release 24 hr Take 1 tablet every day by oral route for 90 days. active Not Available Not Available No t Available sulfameth oxazole 400 mg-trimet hoprim 80 mg tablet 04/02 completed Not Available Not Available Not Available doxepin 25 mg capsule 05/15 completed Not Available Not Available Not Available ranitidin e 300 mg tablet TAKE 1 TABLET BY MOUTH ONCE DAILY FOR 90 DAYS 01/14 completed Not Available Not Available Not Available clarithro mycin 500 mg tablet 09/07 completed Not Available Not Available Not Available hydrocodo ne 5 mg-acetam inophen 325 mg tablet TAKE 1 TABLET BY MOUTH EVERY 6 HOURS NEEDED 06/05 completed Not Available Not Available Not Available sotalol 80 mg tablet TAKE 1 TABLET BY MOUTH EVERY 12 HOURS 08/24 completed Not Available Not Available Not Available prochlorp erazine maleate 5 mg tablet 09/07 completed Not Available Not Available Not Available ondansetr on HCl 8 mg tablet TAKE 1 TABLET BY MOUTH EVERY 8 HOURS NEEDED active Not Available Not Available No t Available Nicorette 2 mg gum 01/14 completed Not Available Not Available Not Available meloxicam 15 mg tablet TK 1 T PO ONCE D PRN active Not Available Not Available No t Available ondansetr on HCl 4 mg tablet TAKE 1 TABLET BY MOUTH 4 TIMES DAILY NEEDED FOR NAUSEA 01/28 completed Not Available Not Available Not Available famotidin e 40 mg tablet TAKE 1 TABLET BY MOUTH EVERY DAY 12/30 completed Not Available Not Available Not Available bupivacai ne HCl 0.5 % (5 mg/mL) injection solution Take 40 mg by injectio n route. 2023 active Not Available Not Available Not Avai lable prednison e 20 mg tablet TAKE 2 TABLETS BY MOUTH EVERY DAY FOR 5 DAYS 01/04 completed Not Available Not Available Not Available isosorbid e mononitra te ER 30 mg tablet,ex tended release 24 hr TAKE 1 TABLET BY MOUTH ONCE DAILY 06/05 completed Not Available Not Available Not Available metoprolo l succinate ER 100 mg tablet,ex tended release 24 hr TAKE 1 TABLET BY MOUTH EVERY DAY 01/14 completed Not Available Not Available Not Available simvastat in 10 mg tablet 04/02 completed Not Available Not Available Not Available clonazepa m 1 mg tablet 09/07 completed Not Available Not Available Not Available cromolyn 4 % eye drops INSTILL 1 DROP IN EACH EYE THREE TIMES DAILY active Not Available Not Available No t Available clobetaso l 0.05 % topical cream APPLY A THIN LAYER TOPICALL Y TO THE AFFECTED AREA TWICE DAILY active Not Available Not Available No t Available clindamyc in HCl 150 mg capsule 09/07 completed Not Available Not Available Not Available amlodipin e 2.5 mg tablet 01/14 completed Not Available Not Available Not Available potassium chloride ER 10 mEq tablet,ex tended release TAKE 1 TABLET BY MOUTH EVERY DAY 03/22 completed Not Available Not Available Not Available metronida zole 500 mg tablet TAKE 1 TABLET BY MOUTH EVERY 8 HOURS FOR 10 DAYS 02/15 completed Not Available Not Available Not Available clopidogr el 75 mg tablet TAKE 1 TABLET BY MOUTH EVERY DAY active Not Available Not Available No t Available fexofenad ine 180 mg tablet Take 1 tablet every day by oral route for 90 days. 12/30 completed Not Available Not Available Not Available ciproflox acin 250 mg tablet TAKE 1 TABLET BY MOUTH EVERY 12 HOURS FOR 7 DAYS 04/05 completed Not Available Not Available Not Available dextromet horphan-g uaifenesi n 10 mg-100 mg/5 mL oral syrup Take 10 mL every 4 hours by oral route. 09/07 completed Not Available Not Available Not Available amlodipin e 5 mg tablet TK 1 T PO QD active Not Available Not Available No t Available bacitraci n zinc 500 unit/gram topical ointment APPLY TOPICALL Y TO THE AFFECTED AREA THREE TIMES DAILY 01/14 completed Not Available Not Available Not Available doxepin 10 mg capsule 05/15 completed Not Available Not Available Not Available ciproflox acin 500 mg tablet TAKE 1 TABLET BY MOUTH EVERY 12 HOURS FOR 7 DAYS 03/01 completed Not Available Not Available Not Available sulfameth oxazole 800 mg-trimet hoprim 160 mg tablet TAKE 1 TABLET BY MOUTH TWICE DAILY FOR 7 DAYS 11/16 completed Not Available Not Available Not Available hydrocodo ne 10 mg-acetam inophen 325 mg tablet TAKE 1 TABLET BY MOUTH TWICE DAILY NEEDED active Not Available Not Available No t Available omeprazol e 40 mg capsule,d elayed release TK 1 C PO QD 06/05 completed Not Available Not Available Not Available aspirin 81 mg tablet,de layed release Take 1 tablet every day by oral route. 01/14 completed Not Available Not Available Not Available tramadol 50 mg tablet TAKE 1 TABLET BY MOUTH EVERY 6 TO 8 HOURS NEEDED 04/21 completed Not Available Not Available Not Available sotalol 120 mg tablet active Not Available Not Available Not Available triamcino lone acetonide 0.1 % topical cream APPLY TOPICALL Y TO THE AFFECTED AREA TWICE DAILY 02/11 completed Not Available Not Available Not Available ketorolac 30 mg/mL (1 mL) injection solution Inject 2 mL every day by intramus cular route for 1 day. 2023 active pt [place] well Not Available Not Available Not Available butalbita l-acetami nophen-ca ffeine 50 mg-325 mg-40 mg tablet 04/15 completed Not Available Not Available Not Available vancomyci n 125 mg capsule TAKE 1 CAPSULE BY MOUTH EVERY 6 HOURS FOR 10 DAYS 09/13 completed Not Available Not Available Not Available ondansetr on 8 mg disintegr ating tablet DISSOLVE 1 TABLET ON THE TONGUE EVERY 8 HOURS NEEDED active Not Available Not Available No t Available baclofen 20 mg tablet 09/07 completed Not Available Not Available Not Available ketorolac 10 mg tablet TK 1 T PO Q 6 H 09/07 completed Not Available Not Available Not Available prednison e 10 mg tablets in a dose pack Take 1 tab by mouth, 3 times a day for 3 daysTake 1 tab by mouth 2 times a day for 2 daysTake 1 tab by mouth once a day for 1 day 2023 active Not Available Not Available Not Avai lable meloxicam 7.5 mg tablet active Not Available Not Available Not Available oxycodone -acetamin ophen 5 mg-325 mg tablet TAKE 1 TABLET BY MOUTH EVERY 8 HOURS FOR 3 DAYS NEEDED 09/27 completed Not Available Not Available Not Available hydrocort isone 2.5 % topical cream with perineal applicato r APPLY RECTALLY TO THE AFFECTED AREA DAILY NEEDED FOR HEMORRHO IDS active Not Available Not Available No t Available isosorbid e mononitra te ER 60 mg tablet,ex tended release 24 hr TK 1 T PO QD 01/14 completed Not Available Not Available Not Available alprazola m 0.5 mg tablet TAKE 1 TABLET BY MOUTH THREE TIMES A DAY NEEDED FOR ANXIETY 09/13 completed Not Available Not Available Not Available ofloxacin 0.3 % ear drops 09/07 completed Not Available Not Available Not Available amoxicill in 875 mg tablet TAKE 1 TABLET BY MOUTH EVERY 12 HOURS FOR 7 DAYS 06/05 completed Not Available Not Available Not Available potassium chloride ER 20 mEq tablet,ex tended release(p art/cryst ) TAKE 1 TABLET BY MOUTH ONCE DAILY 01/14 completed Not Available Not Available Not Available famotidin e 20 mg tablet TAKE 1 TABLET BY MOUTH TWICE DAILY NEEDED 06/05 completed Not Available Not Available Not Available pravastat in 80 mg tablet 09/07 completed Not Available Not Available Not Available lorazepam 0.5 mg tablet TAKE 1 TABLET BY MOUTH THREE TIMES DAILY NEEDED FOR ANXIETY active Not Available Not Available No t Available metoclopr amide 5 mg tablet TAKE 1 TABLET BY MOUTH THREE TIMES DAILY NEEDED 08/24 completed Not Available Not Available Not Available pravastat in 10 mg tablet 04/02 completed Not Available Not Available Not Available triamcino lone acetonide 0.1 % dental paste 09/07 completed Not Available Not Available Not Available oxycodone -acetamin ophen 10 mg-325 mg tablet Take 1 tablet every 6 hours by oral route. 09/27 completed Not Available Not Available Not Available Lice Treatment (permethr in) 1 % topical liquid APPLY A SUFFICIE NT AMOUNT OF SHAMPOO BY TOPICAL ROUTE ONCE ALLOW TO REMAIN ON HAIR FOR 10 MINUTES BEFORE RINSING OFF WITH WATER 09/07 completed Not Available Not Available Not Available dicyclomi ne 20 mg tablet TAKE 1 TABLET BY MOUTH THREE TIMES DAILY 06/05 completed Not Available Not Available Not Available ciproflox acin 0.3 % eye drops INSTILL 4 DROPS TO LEFT EAR TWICE DAILY FOR 7 DAYS 06/05 completed Not Available Not Available Not Available Specific [employer] Ultra Test strips TEST 1 TIME DAILY active Not Available Not Available No t Available Kenalog 10 mg/mL suspensio n for injection Take 40 mg by injectio n route. 2023 active [facility]: [phone] 03-04 Not Available Not Available Not Available lorazepam 2 mg tablet TAKE 1 TABLET BY MOUTH TWICE DAILY AND 1/2 TABLET AT BEDTIME FOR 90 DAYS 01/14 completed Not Available Not Available Not Available baclofen 10 mg tablet 09/07 completed Not Available Not Available Not Available amlodipin e 10 mg tablet 04/14 completed Not Available Not Available Not Available benzonata te 100 mg capsule TAKE 1 CAPSULE BY MOUTH TWICE DAILY NEEDED FOR COUGH 06/05 completed Not Available Not Available Not Available doxycycli ne monohydra te 100 mg capsule TAKE 1 CAPSULE BY MOUTH TWICE DAILY 12/30 completed Not Available Not Available Not Available gemfibroz il 600 mg tablet 09/07 completed Not Available Not Available Not Available hydrocodo ne 7.5 mg-acetam inophen 325 mg tablet TAKE 1 TABLET BY MOUTH EVERY 6 HOURS FOR UP TO 7 DAYS NEEDED FOR PAIN 04/21 completed Not Available Not Available Not Available cephalexi n 500 mg capsule TAKE 1 CAPSULE BY MOUTH EVERY 12 HOURS 08/24 completed Not Available Not Available Not Available pantopraz ole 40 mg tablet,de layed release TAKE 1 TABLET BY MOUTH DAILY 06/05 completed Not Available Not Available Not Available hyoscyami ne sulfate 0.125 mg tablet TAKE 1 TABLET BY MOUTH EVERY 4 HOURS NEEDED FOR SPASMS active Not Available Not Available No t Available cyanocoba karen (vit B-12) 1,000 mcg/mL injection solution Inject 1 mL every month by subcutan eous route. 06/05 completed inject 1 ml every [address] Andrews Not Available Not Available Not Available fluoxetin e 20 mg tablet TAKE 3 TABLETS BY MOUTH EVERY DAY FOR MAJOR DEPRESSI ON OR PANIC DISORDER 01/14 completed Not Available Not Available Not Available neomycin- polymyxin -dexameth 3.5 mg/mL-10, 000 unit/mL-0 .1% eye drops INSTILL 1 DROP INTO AFFECTED EYE(S) BY OPHTHALM IC ROUTE EVERY 3-4 HOURS WHILE AWAKE active Not Available Not Available No t Available nystatin 100,000 unit/gram topical cream APPLY TO THE AFFECTED AREA EVERY MORNING AND EVERY EVENING active Not Available Not Available No t Available ranitidin e 150 mg tablet 09/07 completed Not Available Not Available Not Available prednison e 50 mg tablet TAKE 1 TABLET BY MOUTH DAILY 04/21 completed Not Available Not Available Not Available promethaz ine 25 mg tablet TAKE 1 TABLET BY MOUTH FOUR TIMES DAILY NEEDED active Not Available Not Available No t Available Qvar 40 mcg/actua tion Metered Aerosol oral inhaler 09/07 completed Not Available Not Available Not Available metoprolo l tartrate 50 mg tablet TAKE 1 TABLET BY MOUTH EVERY 12 HOURS 11/02 completed Not Available Not Available Not Available nicotine 21 mg/24 hr daily transderm al patch APPLY 1 PATCH THE SKIN ONCE DAILY active Not Available Not Available No t Available nitroglyc bobby 0.4 mg sublingua l tablet DISSOLVE ONE TABLET UNDER THE TONGUE EVERY 5 MINUTES NEEDED FOR CHEST PAIN. DO NOT EXCEED A TOTAL OF 3 DOSES IN 15 MINUTES (IF NO RELIEF AFTER THIRD DOSE, CALL 911) active Not Available Not Available No t Available omeprazol e 20 mg capsule,d elayed release 09/07 completed Not Available Not Available Not Available diclofena c sodium 75 mg tablet,de layed release 09/07 completed Not Available Not Available Not Available monteluka st 10 mg tablet TAKE 1 TABLET BY MOUTH DAILY active Not Available Not Available No t Available furosemid e 20 mg tablet 09/07 completed Not Available Not Available Not Available mirtazapi ne 15 mg tablet TAKE 1 (ONE) TABLET BY MOUTH NIGHTLY NEEDED 04/21 completed Not Available Not Available Not Available metoprolo l succinate ER 25 mg tablet,ex tended release 24 hr TAKE 1 TABLET BY MOUTH ONCE DAILY 09/13 completed Not Available Not Available Not Available ergocalci ferol (vitamin D2) 1,250 mcg (50,000 unit) capsule TAKE 1 CAPSULE BY MOUTH 1 TIME A WEEK active Not Available Not Available No t Available lorazepam 1 mg tablet 09/07 completed Not Available Not Available Not Available epinephri ne 0.3 mg/0.3 mL injection , auto-inje ctor active Not Available Not Available Not Available ibuprofen 600 mg tablet TAKE 1 TABLET BY MOUTH THREE TIMES DAILY active Not Available Not Available No t Available cefuroxim e axetil 500 mg tablet 09/07 completed Not Available Not Available Not Available polyethyl afsaneh glycol 3350 17 gram/dose oral powder DISSOLVE 17 GRAMS IN LIQUID AND TAKE BY MOUTH ONCE DAILY 01/14 completed Not Available Not Available Not Available levofloxa lorena 500 mg tablet TAKE 1 TABLET BY MOUTH EVERY DAY FOR 7 DAYS active Not Available Not Available No t Available lovastati n 20 mg tablet 09/07 completed Not Available Not Available Not Available levofloxa lorena 750 mg tablet TAKE 1 TABLET BY MOUTH DAILY FOR 10 DAYS 02/15 completed Not Available Not Available Not Available zolpidem 10 mg tablet 05/15 completed Not Available Not Available Not Available methylpre dnisolone 4 mg tablets in a dose pack FOLLOW PACKAGE DIRECTIO NS 01/14 completed Not Available Not Available Not Available albuterol sulfate HFA 90 mcg/actua tion aerosol inhaler INHALE 2 PUFFS BY MOUTH EVERY 4 HOURS active Not Available Not Available No t Available ketorolac 60 mg/2 mL intramusc ular solution Inject 2 mL by intramus cular route. 2023 active Not Available Not Available Not Avai lable oxybutyni n chloride 5 mg tablet TAKE 1 TABLET BY MOUTH THREE TIMES DAILY active Not Available Not Available No t Available ondansetr on 4 mg disintegr ating tablet DISSOLVE 1 TABLET IN MOUTH EVERY 6 TO 8 HOURS NEEDED FOR NAUSEA active Not Available Not Available No t Available cefdinir 300 mg capsule TAKE 1 CAPSULE BY MOUTH EVERY 12 HOURS FOR 7 DAYS 08/24 completed Not Available Not Available Not Available losartan 100 mg tablet TAKE 1 TABLET BY MOUTH EVERY DAY active Not Available Not Available No t Available fluoxetin e 20 mg capsule TAKE 1 CAPSULE BY MOUTH DAILY active Not Available Not Available No t Available fluticaso ne propionat e 50 mcg/actua tion nasal spray,kayla pension SPRAY 2 SPRAYS IN EACH NOSTRIL EVERY DAY active Not Available Not Available No t Available doxycycli ne hyclate 100 mg tablet TAKE 1 TABLET BY MOUTH TWICE DAILY FOR 7 DAYS 11/16 completed Not Available Not Available Not Available dicyclomi ne 10 mg capsule Take 1 capsule 3 times a day by oral route as needed for 10 days. 09/07 completed Not Available Not Available Not Available naproxen 500 mg tablet 09/07 completed Not Available Not Available Not Available metoclopr amide 10 mg tablet TAKE 1 TABLET BY MOUTH TWICE DAILY NEEDED FOR NAUSEA OR VOMITING active Not Available Not Available No t Available amoxicill in 875 mg-potass ium clavulana te 125 mg tablet TAKE 1 TABLET BY MOUTH EVERY 12 HOURS 11/16 completed Not Available Not Available Not Available nicotine 7 mg/24 hr daily transderm al patch APPLY 1 PATCH TOPICALL Y ONCE DAILY FOR 14 DAYS 03/22 completed Not Available Not Available Not Available oxycodone 5 mg tablet TAKE 1 TABLET BY MOUTH EVERY 6 HOURS NEEDED FOR PAIN 12/10 completed Not Available Not Available Not Available neomycin- polymyxin -hydrocor t 3.5 mg-10,000 unit/mL-1 % ear drops,kayla p INSTILL 4 DROPS INTO AFFECTED EAR(S) BY OTIC ROUTE 3 TIMES PER DAY active Not Available Not Available No t Available diabetic supplies, miscellan . 01/14 completed Not Available Not Available Not Available azithromy lorena 500 mg tablet 10/25 completed Not Available Not Available Not Available naloxone 1 mg/mL injection syringe 09/07 completed Not Available Not Available Not Available ezetimibe 10 mg tablet TAKE 1 TABLET BY MOUTH EVERY DAY active Not Available Not Available No t Available nicotine (polacril ex) 4 mg buccal lozenge 01/14 completed Not Available Not Available Not Available nicotine (polacril ex) 2 mg buccal lozenge 1 lozenge by mouth prn no more than q2 hours 08/24 completed Not Available Not Available Not Available ciproflox acin 0.3 %-dexamet hasone 0.1 % ear drops,kayla pension INSTILL 4 DROPS INTO AFFECTED EAR(S) BY OTIC ROUTE 2 TIMES PER DAY FOR 7 DAYS 12/30 completed Not Available Not Available Not Available cholestyr amine (with sugar) 4 gram oral powder 09/07 completed Not Available Not Available Not Available rosuvasta tin 10 mg tablet TK 1 T PO QD active Not Available Not Available No t Available rosuvasta tin 20 mg tablet TAKE 1 TABLET BY MOUTH EVERY DAY AT BEDTIME 01/14 completed Not Available Not Available Not Available bupropion HCl XL 150 mg 24 hr tablet, extended release 05/15 completed Not Available Not Available Not Available Marcaine (PF) 0.5 % (5 mg/mL) injection solution Take 40 mg by injectio n route. 2023 active Not Available Not Available Not Avai lable Spiriva with [employer] r 18 mcg and inhalatio n capsules INHALE 1 PUFF BY MOUTH ONCE DAILY 06/05 completed Not Available Not Available Not Available mirtazapi ne 7.5 mg tablet TAKE 1 TABLET BY MOUTH AT BEDTIME 01/14 completed Not Available Not Available Not Available nitrofura ntoin monohydra te/macroc rystals 100 mg capsule TAKE 1 CAPSULE BY MOUTH EVERY 12 HOURS FOR 5 DAYS 11/16 completed Not Available Not Available Not Available Flovent HFA 220 mcg/actua tion aerosol inhaler 09/07 completed Not Available Not Available Not Available Atrovent HFA 17 mcg/actua tion aerosol inhaler 09/07 completed Not Available Not Available Not Available fenofibra te 160 mg tablet 09/07 completed Not Available Not Available Not Available cromolyn 02/11 completed Not Available Not Available Not Available hydrocort isone 12/30 completed Not Available Not Available Not Available cyclobenz aprine 01/14 completed Not Available Not Available Not Available lidocaine (PF) 10 mg/mL (1 %) injection solution In office injectio n administ ered by the provider 01/14 completed [facility]: [id number] 6-17 Not Available Not Available Not Available lidocaine (PF) 5 mg/mL (0.5 %) injection solution Take 60 mg by injectio n route. 12/30 completed Not Available Not Available Not Available Pataday 0.2 % eye drops 09/07 completed Not Available Not Available Not Available Symbicort 160 mcg-4.5 mcg/actua tion HFA aerosol inhaler INHALE 2 PUFFS BY MOUTH TWICE DAILY active Not Available Not Available No t Available Symbicort 80 mcg-4.5 mcg/actua tion HFA aerosol inhaler Inhale 2 puffs BID as directed 09/07 completed Not Available Not Available Not Available fenofibra te 120 mg tablet TAKE 1 TABLET BY MOUTH EVERY DAY active Not Available Not Available No t Available dexlansop razole 30 mg capsule,b iphase delayed release TAKE 1 CAPSULE BY MOUTH DAILY active Not Available Not Available No t Available ketorolac 30 mg/mL injection solution Inject 1 mL by intraven ous route. 12/30 completed Not Available Not Available Not Available ProChambe r USE DIRECTED active Not Available Not Available No t Available Dulera 100 mcg-5 mcg/actua tion HFA aerosol inhaler 09/07 completed Not Available Not Available Not Available Dificid 200 mg tablet TAKE 1 TABLET BY MOUTH EVERY 12 HOURS FOR 10 DAYS 08/24 completed Not Available Not Available Not Available ropivacai ne (PF) 5 mg/mL (0.5 %) injection solution in office 2022 active [facility] [id number] 4- Not Available Not Available Not Available fluoxetin e 60 mg tablet TAKE 1 TABLET BY MOUTH EVERY DAY 06/05 completed Not Available Not Available Not Available Xarelto 20 mg tablet 12/30 completed Not Available Not Available Not Available Chantix Starting Month Box 0.5 mg (11)-1 mg (42) tablets in dose pack 01/14 completed Not Available Not Available Not Available Eliquis 5 mg tablet TAKE 1 TABLET BY MOUTH EVERY 12 HOURS active Not Available Not Available No t Available Safety Lancets 28 gauge TEST 1 TIME DAILY active Not Available Not Available No t Available Aerospan 80 mcg/actua tion HFA aerosol inhaler 01/14 completed Not Available Not Available Not Available Virtussin AC 10 mg-100 mg/5 mL oral liquid Take 10 mL every 4 hours by oral route as needed. 09/07 completed Not Available Not Available Not Available Latha SureClick 140 mg/mL subcutane ous pen injector INJECT 1 PEN UNDER THE SKIN EVERY 14 DAYS active Not Available Not Available No t Available fluticaso ne 113 mcg-salme terol 14 mcg/actua tion breath activated powdr Inhale one puff q 12 hours 09/07 completed Not Available Not Available Not Available OneTouch Ultra2 Meter USE DIRECTED active Not Available Not Available No t Available OneTouch Delica Plus Lancet 33 gauge USE 1 TO CHECK GLUCOSE ONCE DAILY active Not Available Not Available No t Available Vitals Date Recorded Body height Body mass index (BMI) Body weight Provider Name and Address Organization Details Last Updated DateTime 09/29/2024 160.02 cm 32.6 kg/m2 59777 g NATALYA Kumar [employer] 09/29/2024 11:39:48 Social History Question Answer Notes LastModified by Organizat ion Details LastModified Time Tobacco Smoking Status Current Every Day Smoker started age 16 Not Available [facility] 01/13/2023 13:51:45 What Is Your Level Of Alcohol Consumption? None [id number] Information not available 01/13/2023 What Is Your Level Of Caffeine Consumption? Moderate [id number] Information not available 01/13/2023 In The 14 Days Before Symptom Onset, Have You Had Close Contact With A Laboratory-confir med COVID-19 While That Case Was Ill? No [id number] Information not available 01/13/2023 In The 14 Days Before Symptom Onset, Have You Had Close Contact With A Person Who Is Under Investigation For COVID-19 While That Person Was Ill? No [id number] Information not available 01/13/2023 What Type Of Diet Are You Following? REGULAR [id number] Information not available 01/13/2023 Which Illicit Or Recreational Drugs Have You Used? Marijuana [id number] Information not available 01/13/2023 What Was The Date Of Your Most Recent Tobacco Screening? 12/30/2022 [id number] Information not available 01/13/2023 What Is Your Current Pack Years? 30ormorepacky ears [id number] Information not available 01/13/2023 How Much Tobacco Do You Smoke? 1 PPD [id number] Information not available 01/13/2023 Do You Use Any Illicit Or Recreational Drugs? Yes [id number] Information not available 01/13/2023 Has Tobacco Cessation Counseling Been Provided? No [id number] Information not available 01/13/2023 How Many Years Have You Smoked Tobacco? 45 Information not available 06/05/2024 Have You Recently Traveled Abroad? No [id number] Information not available 01/13/2023 Have You Used IV Drugs? No [id number] Information not available 01/13/2023 Do You Have Any Dietary Restrictions? No [id number].[id number] Information not available 01/13/2023 Do You Or Have You Ever Used Any Other Forms Of Tobacco Or Nicotine? No [id number].[id number] Information not available 01/13/2023 Sex: Unknown Functional Status Question Answer Note LastModified by Organizat ion Details LastModified Time What is your exercise level? Occasional [id number] Information not available 02/15/2023 Mental Status None recorded. Family History Relationship Description Onset Age of this Age Resolved Age Notes LastModified by Organization Details LastModified Time Sister Heart disease [email or web address] Not available 2023 11:25:33 Sister Hypertensive disorder [email or web address] Not available 2023 11:25:41 Sister Family history of malignant neoplasm bladde r cancer Not available 09/29/2024 11:38:38 Sister Family history of stroke [email or web address] Not available 09/29 11:38:38 Father Diabetes mellitus [id number] Not available 01/13/2023 13:51:48 Medical History Condition Response ARTHRITIS Y USE OF BLOOD THINNERS Y DIABETES, TYPE Y SKIN PROBLEMS Y EMPHYSEMA Y HEART ARRHYTHMIA Y COPD Y ASTHMA Y CATARACTS Y USE OF NSAIDS Y DEPRESSION (INCLUDING POST ) Y STROKE/TIA Y VASCULAR DISEASE Y HEART DISEASE/HEART PROBLEMS Y HYPERTENSION Y CANCER: SPECIFY Y OSTEOPOROSIS Y URINARY/BLADDER/KIDNEY PROBLEMS Y Gynecological History Statement/Question Response Menses Monthly N Current Control Method Menopause Obstetrics History GPAL:G 0 P 0 0 0 0 Immunizations Vaccine Type Date Status Note Provider Nam e and Address Organization Details Recorded Time Influenza, split virus, quadrivalent, preservative 0 completed Not Available [facility] 12/09/2023 07:30:48 COVID-19, mRNA, LNP-S, PF, 30 mcg/0.3 mL dose 1 completed Not Available [facility] 12/09/2023 07:30:48 pneumococcal polysaccharide PPV23 6 completed Not Available [facility] 12/09/2023 07:30:48 Tdap 1 completed Not Available [facility] 12/09/2023 07:30:48 Influenza, split virus, quadrivalent, PF 5 completed Not Available [facility] 12/09/2023 07:30:48 Influenza, split virus, quadrivalent, PF 9 completed Not Available [facility] 12/09/2023 07:30:48 Influenza, split virus, quadrivalent, PF 6 completed Not Available [facility] 12/09/2023 07:30:48 Influenza, MDCK, quadrivalent, PF 2 completed Not Available [facility] 12/09/2023 07:30:48 COVID-19, mRNA, LNP-S, PF, 30 mcg/0.3 mL dose 1 completed Not Available [facility] 12/09/2023 07:30:48 COVID-19, mRNA, LNP-S, PF, 30 mcg/0.3 mL dose 1 completed Not Available [facility] 12/09/2023 07:30:48 PCV10 6 completed Not Available [facility] 12/09/2023 07:30:48 Tdap 9 completed Not Available [facility] 12/09/2023 07:30:48 Influenza, split virus, quadrivalent, PF 7 completed Not Available [facility] 12/09/2023 07:30:48 Influenza, split virus, quadrivalent, PF 8 completed Not Available [facility] 12/09/2023 07:30:48 Past Encounters Encounter ID Performer Location Encounter Start Date Encounter Closed Date Diagnosis/Indication Diagnosis SNOMED-CT Code Diagnosis ICD10 Code [id number] DARLEEN Andrea [facility] [address] [place] [address] 09/13/2024 14:07:11 09/13/2024 14:40:00 [id number] JOSE Carrillo [facility] [address] [address] [place] [id number] 09/29/2024 11:36:27 09/29/2024 12:03:37 Bilateral osteoarthritis of knees 1269041271 13138 M17.0 Pain of bi lateral knee joints 4416242860 79247 M25.561 M25.562 Health Concerns Section Related Observation LastModified by Organization Detai ls LastModified Time None Recorded Concern Status LastModified by Organization Details LastModified Time None Recorded Payers Encounter Date Sequence Insurance Name Policy Number Policy Larsen Covered Member ID Larsen Member ID Guarantor Name 09/29/2024 1 [facility] - DOS ON OR AFTER 21 (MEDICAID REPLACEMENT - HMO) Rody Zaidi [id number] Rody Zaidi Notes Date Note Type Note Provider Name and Address Organization Details Recorded Time 09/29/2024 text/html the patient retu rns with bilateral knee pain she has severe primary osteoarthritis of both knees which is [id number]. She has severe changes in the tibial femoral articulations in the medial and lateral compartments with slight erosion of the tibial plateau medially right worse than left with varus deformities. The patellofemoral articulation shows some remaining joint space with marginal osteophytes off the medial and lateral facets and distal femur medially. This has worsened over time she states today the pain is about a 7 on a scale 1-10 both knees. Unfortunately she can not take nonsteroidal anti-inflammatory medication because she is on blood thinners she has multiple medical issues with chronic bronchitis and COPD and not really a good candidate for total knee arthroplasty either. She comes in today requesting repeat cortisone injections both knees. JOSE Carrillo [address] [facility], [facility] [address], [place], [address], [facility] [employer] 09/29/2024 12:07:57 OBGyn Episode No OBEpisode recorded.
--- OUTSIDE RECORDS SUMMARY | 2024-11-12 05:20 | XMS_ITS | Continuity of Care Document ---
Author Organization [place] - [facility] [employer] [facility], [facility] [place] Address [address] [place] [address] Care Team Providers Care Coating Technician Name Role Phone DARLEEN SALGADO ZACHARY Primary Care Provider DARLEEN SALGADO ZACHARY Referring Provider [phone] Assessment No assessment recorded. Plan of Treatment Reminders Order Date Submit Date Provider Last Modified By Organization Details Last Modified Time Details Appointments None record ed. Lab None record ed. Referral None record ed. Procedures None record ed. Surgeries None record ed. Imaging None record ed. Medication Orders None record ed. Patient TargetsNo targets recorded. Patient InstructionsNo instructions recorded. Reason for Referral None Reported. Results Created Date Observation Date Name Description Value Unit Range Abnormal Flag Note LastModifiedBy Organization Detail LastModifiedTime 09/13/20 24 09/13/2024 XR, hand, 2 view No observ ation record ed. [email or web address] [facility] [address], [place], [address], 09/13/2024 16:59:37 Result Notes None recorded. Problems Name Problem SNOMED Code Status Onset Date Resolution Date Notes Provider Name and Address Organization Details Recorded Time Neoplasm of urinary bladder 529794052 Active 2021 Not Available [facility] 4 07:30:46 Hyperchole sterolemia 77312887 Active 2016 Not Available [facility] 4 07:30:46 Chronic obstructiv e pulmonary disease 74925465 Active 2016 Not Available [facility] 4 07:30:46 Malignant neoplasm of lateral wall of urinary bladder 223055114 Active 2021 Not Available [facility] 4 07:30:46 Cobalamin deficiency 058433353 Active 2022 Not Available [facility] 4 07:30:46 Asthma 432853888 Active 2016 Not Available [facility] 4 07:30:46 Cerebrovas cular accident 641039925 Active 2016 Not Available [facility] 4 07:30:46 Osteoarthr itis of knee 674673643 Active Not Available [facility] 4 07:30:46 Injury of ribs 035764446 Active 2018 Not Available [facility] 4 07:30:46 Enthesopat hy of hip region 28724862 Active Not Available [facility] 4 07:30:46 Pain in left foot 3031697548392 07 Active 2020 Not Available [facility] 4 07:30:46 Depressive disorder 65713153 Active 2016 Not Available [facility] 4 07:30:46 Hypertensi ve disorder 43099975 Active 2016 Not Available [facility] 4 07:30:46 Osteoarthr itis 664852963 Active Not Available [facility] 4 07:30:46 Peripheral vascular disease 646322663 Active 2017 Not Available [facility] 4 07:30:47 Porokerato sis 373495623 Active 2020 Not Available [facility] 4 07:30:47 Obesity 056568616 Active 2016 Not Available [facility] 4 07:30:47 Tubular adenoma of colon 311727988 Active 2018 Not Available [facility] 4 07:30:47 Anxiety 66455821 Active 2016 Not Available [facility] 4 07:30:47 Chronic colitis 39496383 Active 2018 Not Available [facility] 4 07:30:47 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 671780081 Active 2018 Not Available [facility] 4 07:30:47 Diabetes mellitus 17197305 Active 2016 Not Available [facility] 4 07:30:47 Mass of vocal cord Active 2018 Not Available [facility] 4 07:30:47 Malignant neoplasm of urinary bladder 415865867 Active 2022 Not Available [facility] 4 07:30:47 Chronic back pain 232297916 Active 2022 Not Available [facility] 4 07:30:46 Cigarette smoker 93899116 Active 2022 Not Available [facility] 4 07:30:47 Diverticul itis 210051109 Active 2022 Not Available [facility] 4 07:30:46 Essential hypertensi on 55275490 Active 2022 Not Available [facility] 4 07:30:47 Abdominal pain 64542295 Active 2022 Not Available [facility] 4 07:30:46 Type 2 diabetes mellitus 32280582 Active 2022 Not Available [facility] 4 07:30:47 Bilateral osteoarthr itis of knees 9196548138101 07 Active 2022 Not Available [facility] 4 07:30:46 Pain in right hip joint 5773424417140 02 Active 2022 Not Available [facility] 4 07:30:46 Trochanter ic bursitis of right hip 5531622313165 00 Active 2022 Not Available [facility] 4 07:30:46 Dysuria 24831562 Active 2022 Not Available [facility] 4 07:30:47 Acute exacerbati on of chronic obstructiv e pulmonary disease 825607058 Active 2022 Not Available [facility] 4 07:30:46 Blood in urine 46319057 Active 2022 Not Available [facility] 4 07:30:46 Vaginitis 53745048 Active 2022 Not Available [facility] 4 07:30:46 Allergic rhinitis 14392332 Active 2022 Not Available [facility] 4 07:30:47 Pain of left wrist 1163035365554 02 Active 2022 Not Available [facility] 4 07:30:46 Pain of left elbow joint 2165616276328 9104 Active 2022 Not Available [facility] 4 07:30:46 Pain of left forearm 5759721896071 09 Active 2022 Not Available [facility] 4 07:30:46 Multiple joint pain 23161588 Active 2022 Not Available [facility] 4 07:30:46 Acute sinusitis 19977661 Active 2022 Not Available [facility] 4 07:30:46 Dislocatio n of elbow joint 466300933 Active 2022 Not Available [facility] 4 07:30:47 Closed fracture of coronoid process of ulna 65945976 Active 2022 Not Available [facility] 4 07:30:47 Closed fracture of distal end of radius 55369602 Active 2022 Not Available [facility] 4 07:30:46 Dislocatio n of elbow joint 063412622 Active 2022 Not Available [facility] 4 07:30:47 Closed fracture of distal end of radius 59826181 Active 2022 Not Available [facility] 4 07:30:46 Increased frequency of urination 662632771 Active 2022 Not Available [facility] 4 07:30:46 Acute urinary tract infection 003444397 Active 2022 Not Available [facility] 4 07:30:47 Low back pain 262503658 Active 2022 Not Available [facility] 4 07:30:46 Vitamin D deficiency 89826533 Active 2022 Not Available [facility] 4 07:30:46 Hyperlipid emia 52723826 Active 2022 Not Available [facility] 4 07:30:47 Closed traumatic dislocatio n of elbow joint 6349683 Active 2022 Not Available [facility] 4 07:30:46 Nausea 297967638 Active 2022 Not Available [facility] 4 07:30:47 Heartburn 10240539 Active 2022 Not Available [facility] 4 07:30:46 Tachycardi a 1343975 Active 2022 Not Available [facility] 4 07:30:46 Cough 66530273 Active 2022 Not Available [facility] 4 07:30:47 Hypomagnes emia 940002462 Active 2023 Not Available [facility] 4 07:30:46 Eczema 87184115 Active 2023 Not Available [facility] 4 07:30:47 Pain in throat 073623742 Active 2023 Deisi Andrews MD [address], [place], [address] , [facility] [employer] [facility] 4 13:19:57 Degenerati on of lumbar interverte bral disc 16188211 Active 2023 Deisi Andrews MD [address], [place], [address] , [facility] [email or web address] Application [facility] [employer] [facility] 4 14:40:03 Abscess of sigmoid colon 662619862 Active 2023 Deisi Andrews MD [address], [place], [address] , [facility] [email or web address] Application [facility] [employer] [facility] 4 14:40:16 Pain of bilateral knee joints 7643315865360 04 Active 2023 NATALYA Kumar, [facility] [employer] [facility] 4 12:11:51 Seasonal allergy 022109661 Active 2023 ADRLEEN Carroll [address], [place], [address] , [employer] 4 11:05:30 Problem Notes None recorded. Procedures Surgical History Date Name Laterality Status Provider Name and Address Organization Details Recorded Time 10/01/20 colonoscopy completed Deisi Andrews MD [address], [place], [address], [employer] [facility] [employer] 01/04/2024 14:43:39 09/13/20 Transitional_Ca re_Management completed Beti Malloy RN [place] [email or web address] [facility] [employer] 09/13/2023 11:04:05 01/22/20 Transitional_Ca re_Management completed Dorothy Viveros MA [employer] [facility] [employer] 01/21/2023 08:46:49 11/15/19 Unlisted px femur/knee completed Not Available [facility] 01/13/2023 13:51:47 Tubal Ligation completed Not Available [facility] 01/13/2023 13:51:47 section completed Not Available [facility] 01/13/2023 13:51:47 procedure on carotid body completed Not Available [facility] 01/13/2023 13:51:47 Ear Tube Placement completed Not Available [facility] 01/13/2023 13:51:47 Imaging Results None recorded. Procedure Notes None recorded. Medical Equipment None Reported. Allergies Allergen ID Allergen Name Allergen Category Reaction Reaction Severity Criticality Documentation Date Start Date Code Code System Note Provider Name and Address Organization Details Recorded Time 08997 wasp venoms environme nt angioedem a facial swelling moderate Not available Not available 01/13/2023 18838 RxNorm throa t swell s NATALYA Kumar, [place] [email or web address] [facility] [employer] 4 11:21:45 12012 simvastat in medicatio n other Not available Not available 01/13/2023 62993 RxNorm ALL SATIN S!!! can't walk NATALYA Kumar, [employer] [facility] [employer] 4 11:21:21 56715 Risperdal medicatio n Not available Not available Not available 01/13/2023 72801 8 RxNorm face draws up Masha Lozada, [employer] null, [employer] 4 11:20:46 59868 Medicinal product containin g penicilli n and acting as antibacte rial agent (product) medicatio n rash Not available Not available 01/13/2023 37156 05 SNOMED Deisi Andrews MD [address] [facility] [address], [place], [address] [facility] [employer] 3 12:22:06 72727 morphine medicatio n other Not available Not available 01/13/2023 7052 RxNorm Not Available [facility] 3 13:57:09 17138 Haldol medicatio n Not available Not available Not available 01/13/2023 92719 9 RxNorm face draws up Masha Lozada, [employer] null, [employer] 4 11:20:29 22002 Halcion medicatio n other Not available Not available 01/13/2023 80402 3 RxNorm face draws up Masha Lozada, [employer] null, [employer] 4 11:19:53 Medications Name Sig Start Date [...] Not Available Not Available Not Available OneTouch Ultra Test strips TEST 1 TIME DAILY active Not Available Not Available No t Available Kenalog 10 mg/mL suspensio n for injection Take 40 mg by injectio n route. 2023 active [facility]: 0003-049 20 Not Available Not Available Not Available lorazepam [...] administ ered by the provider 01/14 completed [facility]: 0409-427 6-17 Not Available Not Available Not [...] %) injection solution in office 2022 active [facility] 65155-46 4- Not Available Not Available Not Available [...] completed Not Available Not Available Not Available Repatha SureClick 140 mg/mL subcutane ous pen injector [...] Available Not Available No t Available Vitals None Recorded Social History Question Answer Notes LastModified by Organizat ion Details LastModified Time Tobacco Smoking Status Current Every Day Smoker started age 16 Not Available [facility] 01/13/2023 13:51:45 What Is Your Level Of Alcohol Consumption? None MIGRATION.86447 [id number] Information not available 01/13/2023 What Is Your Level Of Caffeine Consumption? Moderate MIGRATION.14003 19729 Information not available 01/13/2023 In The 14 Days Before Symptom Onset, Have You Had Close Contact With A Laboratory-confir med COVID-19 While That Case Was Ill? No MIGRATION.34614 40476 Information not available 01/13/2023 In The 14 Days Before Symptom Onset, Have You Had Close Contact With A Person Who Is Under Investigation For COVID-19 While That Person Was Ill? No MIGRATION.70042 30379 Information not available 01/13/2023 What Type Of Diet Are You Following? REGULAR MIGRATION.52704 57462 Information not available 01/13/2023 Which Illicit Or Recreational Drugs Have You Used? Marijuana MIGRATION.14324 51779 Information not available 01/13/2023 What Was The Date Of Your Most Recent Tobacco Screening? 12/30/2022 MIGRATION.84707 28834 Information not available 01/13/2023 What Is Your Current Pack Years? 30ormorepacky ears MIGRATION.51831 55124 Information not available 01/13/2023 How Much Tobacco Do You Smoke? 1 PPD MIGRATION.77920 77538 Information not available 01/13/2023 Do You Use Any Illicit Or Recreational Drugs? Yes MIGRATION.11164 81594 Information not available 01/13/2023 Has Tobacco Cessation Counseling Been Provided? No MIGRATION.65504 08047 Information not available 01/13/2023 How Many Years Have You Smoked Tobacco? 45 [email or web address] Information not available 06/05/2024 Have You Recently Traveled Abroad? No MIGRATION.96181 11129 Information not available 01/13/2023 Have You Used IV Drugs? No MIGRATION.61364 12355 Information not available 01/13/2023 Do You Have Any Dietary Restrictions? No MIGRATION.71145 82931 Information not available 01/13/2023 Do You Or Have You Ever Used Any Other Forms Of Tobacco Or Nicotine? No MIGRATION.17208 24222 Information not available 01/13/2023 Sex: Unknown Functional Status Question Answer Note LastModified by Organizat ion Details LastModified Time What is your exercise level? Occasional [email or web address] Information not available 02/15/2023 Mental Status None recorded. Family History Relationship Description Onset Age of this Age Resolved Age Notes LastModified by Organization Details LastModified Time Sister Heart disease [email or web address] Not available 2023 11:25:33 Sister Hypertensive disorder [email or web address] Not available 2023 11:25:41 Sister Family history of malignant neoplasm bladde r cancer [email or web address] Not available 09/29/2024 11:38:38 Sister Family history of stroke [email or web address] Not available 09/29 11:38:38 Father Diabetes mellitus [id number].255 [id number] Not available 01/13/2023 13:51:48 Medical History Condition Response ARTHRITIS Y USE OF BLOOD THINNERS Y VASCULAR DISEASE Y HEART DISEASE/HEART PROBLEMS Y SKIN PROBLEMS Y DIABETES, TYPE Y EMPHYSEMA Y HEART ARRHYTHMIA Y HYPERTENSION Y COPD Y CANCER: SPECIFY Y ASTHMA Y OSTEOPOROSIS Y CATARACTS Y URINARY/BLADDER/KIDNEY PROBLEMS Y USE OF NSAIDS Y DEPRESSION (INCLUDING POST ) Y STROKE/TIA Y Gynecological History Statement/Question Response Menses Monthly N Current Control Method Menopause Obstetrics History GPAL:G 0 P 0 0 0 0 Immunizations Vaccine Type Date Status Note Provider Nam e and Address Organization Details Recorded Time Influenza, split virus, quadrivalent, preservative 0 completed Not Available [facility] 12/09/2023 07:30:48 COVID-19, mRNA, LNP-S, PF, 30 mcg/0.3 mL dose 1 completed Not Available [facility] 12/09/2023 07:30:48 pneumococcal polysaccharide PPV23 6 completed Not Available [facility] 12/09/2023 07:30:48 Tdap 1 completed Not Available [facility] 12/09/2023 07:30:48 Influenza, split virus, quadrivalent, PF 5 completed Not Available [facility] 12/09/2023 07:30:48 Influenza, split virus, quadrivalent, PF 9 completed Not Available [facility] 12/09/2023 07:30:48 Influenza, split virus, quadrivalent, PF 6 completed Not Available [facility] 12/09/2023 07:30:48 Influenza, MDCK, quadrivalent, PF 2 completed Not Available [facility] 12/09/2023 07:30:48 COVID-19, mRNA, LNP-S, PF, 30 mcg/0.3 mL dose 1 completed Not Available [facility] 12/09/2023 07:30:48 COVID-19, mRNA, LNP-S, PF, 30 mcg/0.3 mL dose 1 completed Not Available [facility] 12/09/2023 07:30:48 PCV10 6 completed Not Available [facility] 12/09/2023 07:30:48 Tdap 9 completed Not Available [facility] 12/09/2023 07:30:48 Influenza, split virus, quadrivalent, PF 7 completed Not Available [facility] 12/09/2023 07:30:48 Influenza, split virus, quadrivalent, PF 8 completed Not Available [facility] 12/09/2023 07:30:48 Past Encounters Encounter ID Performer Location Encounter Start Date Encounter Closed Date Diagnosis/Indication Diagnosis SNOMED-CT Code Diagnosis ICD10 Code [id number] DARLEEN Andrea [facility] [address] [facility] [address] [place] [address] 08/24/2024 10:23:41 08/24/2024 11:14:49 Adult health examination 150333762 Z00.00 Cerebrovas cular accident 639249374 I63.9 Chronic ob structive pulmonary disease 56151725 J44.9 Cigarette smoker 3085981 7 F17.210 Depressive disorder 3548 9007 F32.A Diabetes mellitus 907404 09 E11.9 Eczema 30801405 L30.9 Essential hypertension 69247142 I10 Hyperlipidemia 06200847 E78.5 Vitamin D deficiency 347 05750 E55.9 Body mass index 30+ - obesity 599612103 Z68.33 Screening mammography 24 388109 Z12.31 Spasm 02946242 R25.2 [id number] DARLEEN Andrea [facility] [address] [place] [address] 09/13/2024 14:07:11 09/13/2024 14:40:00 Health Concerns Section Related Observation LastModified by Organization Detai ls LastModified Time None Recorded Concern Status LastModified by Organization Details LastModified Time None Recorded Payers Encounter Date Sequence Insurance Name Policy Number Policy Larsen Covered Member ID Larsen Member ID Guarantor Name 09/13/2024 1 [facility] - DOS ON OR AFTER 21 (MEDICAID REPLACEMENT - HMO) Rody Zaidi [id number] Rody Zaidi OBGyn Episode No OBEpisode recorded.
--- OUTSIDE RECORDS SUMMARY | 2024-11-12 05:21 | XMS_ITS | Data Portability ---
Author Organization [facility] Address [address] [place] [address] Care Team Providers Care Steam Service Inspector Name Role Phone RHONDA SALDIVAR Primary Care Provider [phone] Assessment Encounter Date Assessment Date Assessment LastModified by Organization Details LastModified Time 10/23/2020 10/23/2020 Annual gynecological exam performed. Patient will come back in a year unless there are new symptoms. continue seeing other specialties call if needs anything Not available 10/23/2020 11:14:11 10/29/2021 10/29/2021 Annual gynecological exam performed. Patient will come back in a year unless there are new symptoms. Suggest Calcium with Vitamin D if not eating in diet. Patient advised to get annual flu shot. Recommend yearly physicals and preform monthly breast exams. Genetic testing is available for patients with family history of cancer. Engage in safe sexual practices, use condoms. Encouraged to have daily exercise. Avoid tobacco and illicit drugs, moderation of alcohol. If BMI greater than 25 dietary consult advised. If you have any questions please call or email. dexa order given Not available 10/29/2021 09:56:30 07/04/2022 07/04/2022 61-year-old female with pelvic pain and ovarian cyst. We agreed to perform pelvic ultrasound and return to discuss results and form treatment plan. Patient was seen in follow-up from the emergency department. A CT in the emergency department revealed a 1.4 cm right ovarian cyst. Left sided pain is with the patient feels. We will obtain pelvic ultrasound. She will return after the ultrasound. [email or web address] Not available 08/07/2022 16:06:50 Plan of Treatment Reminders Order Date Submit Date Provider Last Modified By Organization Details Last Modified Time Details Appointments None recorded. Lab None recorded. Referral None recorded. Procedures None recorded. Surgeries None recorded. Imaging US, transvagina l 2021 022 [email or web address] [address], [address], [place], [address], 18:00:06 Medication Orders nystatin-tr iamcinolone 100,000 unit/g-0.1 % topical cream 2019 020 [email or web address] 1 [id number], [address], [place], [place], [id number], 09:52:36 Patient TargetsNo targets recorded. Patient Instructions Encounter Date Encounter Id Patient Instructions Last Modified By Organization Details Last Modified Time 10/23/2020 [id number] Suggest Calcium with Vitamin D if not eating in diet. Patient advised to get annual flu shot. Recommend yearly physicals and preform monthly breast exams. Genetic testing is available for patients with family history of cancer. Engage in safe sexual practices, use condoms. Encouraged to have daily exercise. Avoid tobacco and illicit drugs, moderation of alcohol. If BMI greater than 25 dietary consult advised. If you have any questions please call or email. Not available 10/23/2020 11:14:44 Reason for Referral None Reported. Results Created Date Observation Date Name Description Value Unit Range Abnormal Flag Note LastModifiedBy Organization Detail LastModifiedTime 10/23/20 20 10/25/2020 pap, LB Pap test thin prep Negati ve for Intrae pithel ial Lesion or Malign jayde normal ACCES NEEL #: [id number] Sourc e: Cervi belem/E ndoce rvica l LMP: 2013 Date Taken : 10/23 Speci men Type: ThinP rep Vial Date Repor leah: 10/25 Clini belem Data: Cytot ech: YOLETTE Alex (ASCP ) Date Repor leah: 10/25 Speci men Adequ acy: Satis facto ry for evalu ation Endoc ervic al/tr ansfo rmati on zone compo nent prese nt Gener al Categ oriza tion: NEGAT ROMAN FOR INTRA EPITH ELIAL CASSIE Guillaume OR MALLARS LEAL This speci men has been yessica zed by the ThinP rep Imagi ng Fahad abreu, an inter activ e compu ter fahad abreu which jorge ts the lab in the thor dove of ThinP rep Pap Test slide sGeneva maurer imagi ng, the slide was revie wed by a Cytot echno logis t and/o r Patho logis t. D N A A S S A Y S R E P O R T TEST NAME RESUL TS ----- ---- ----- -- HPV High Risk Thor guillaume (TMA) ThinP rep Vial The human papil lomav irus (HPV) High Risk Thor guillaume is an FDA-a pprov ed in-vi tro ampli fied nucle ic acid test for the quali tativ e detec tion of E6/E7 viral mRNA. Resul ts shoul d be corre lated with patie nt prese ntati on, histo ry, cervi belem cytol ogy and other clini belem and labor atory findi ngs. See https ://[employer]/s ites/ defau lt/fi les/2 018-0 3/AW- 93388 _002_ 01.pd f for tani guillaume. Test perfo rmed by [facility], d/b/a Path [facility], [address], [place] [address] , Иван Lynn ra, DO, Labor atory [facility]. HPV High Risk *HPV NOT DETEC LEAH (TYPE S 16, 18, 31, 33, 35, 39, 45, 51, 52, 56, 58, 59, 66, 68) *HPV: The human papil lomav irus (HPV) High Risk Thor guillaume is an FDA-a pprov ed in-vi tro ampli fied nucle ic acid test for the quali tativ e detec tion of E6/E7 viral mRNA. Resul ts shoul d be corre lated with patie nt prese ntati on, histo ry, cervi belem cytol ogy and other clini belem and labor atory findi ngs. See https ://ww wClassOwl. Grow/s ites/ defguille lt/fi les/2 018-0 3/AW- 39048 _002_ 01.pd f for tani estevezr dee markell. Test perfo rmed by [facility] [employer] [facility] [employer], d/b/a [facility]oup, [address], [place] [address] , Иван Lynn ra, DO, Labor atory Dire tor. End of Repor t Techn ical servi opal provi ded by [facility] [employer] [facility], d/b/a [employer]Cart[employer] roup, [address] [place] [address] George Ortiz MD, [facility]. Case revie wed and diagn osis rende red at [facility] [email or web address], d/b/a [email or web address], [address] [place] [address] George Ortiz MD, [facility]. CONFI DENTI AL Not Available [facility] -[facility] ([facility]) [address] [place] [address], [place], [address], 10/25/2020 10:06:32 10/23/20 20 10/24/2020 HPV DNA, high- risk HPV high risk NOT DETECT ED normal Not Available [facility] ([facility]) [address] [place] [address], [place], [address], 10/25/2020 10:06:32 10/29/20 21 10/29/2021 IMAGE GUIDE D PAP AND HPV REGAR DLESS image guided Pap, HPV regardless of Pap result SEE RESULT S BELOW CASE REPOR T: Cytol ogy Gynec ologi belem Repor t Case: [id number] Autho adan g Provi sapna: Jacquelin Hernández NP Colle cted: 10/29 1219 Order ing Locat ion: [place] [facility] Recei bennie: 10/30 0728 First Scree n: Nick Kilpatrick , CT Speci men: Scree derrell Pap - Image d, Cervi x STATE MENT OF ADEQU ACY: Satis facto ry for evalu ation Trans forma tion zone compo nent prese nt FINAL DIAGN OSIS: Negat roman for Intra epith elial Lesio n or Marcia leal (NIL) . Elect jordan banuelos tacho d by Nick Kilpatrick , CT on 11/07 at 6:01 PM ----- ----- ----- ----- ----- ----- ----- ----- ----- ----- ----- ----- ----- ----- ----- ----- ----- ---- HPV RESUL TS: HPV mRNA E6/E7 : No HPV mRNA Detec leah NOTE: This high risk HPV mRNA assay detec ts fourt een high- risk HPV types (16, 18, 31, 33, 35, 39, 45, 51, 52, 56, 58, 59, 66, 68) witho ut diffe renti ation . COMME NT: Note: This speci men was revie wed by a Cytot echno logis t and/o r Patho logis t (as indic ated in this repor t) after evalu ation using the Thinp rep Imagi ng Syste m. CLINI BELEM INFOR MATIO N: Menst rual Statu s: LMP (if appli cable ): Clini belem Histo ry/Pr eviou s Pap: Type of Neopl lul (if appli cable ): Signi fican t Clini belem Findi ngs: Other Histo ry: Hormo karlene (if appli cable ): PAP EDUCA FIONA L NOTE: The Pap Test is a scree derrell test with an inher ent false negat roman rate. Liqui d-bas e sampl ing may decre ase, but will not elimi lula, false negat roman resul ts. A negat roman resul t does not precl ude the prese nce and/o r devel opmen t of disea se, since the prese nce of abnor mal cells in the sampl e depen ds on the locat ion of the lesio n and sampl ing techn ique. Lindsey nued regul ar scree derrell is the best metho d of cance r preve ntion . If repor leah cytol ogic findi ng do not corre late with physi belem and/o r histo rical findi ngs, furth er inves tigat ion is recom julia d, as clini david avitia nted. Not Available [facility] (Lab) [address], [place], [address], 11/07/2021 19:04:07 10/29/20 21 10/29/2021 TRICH OMONA S VAGIN LUIS (RRNA ) trichomonas vaginalis ribosomal RNA (rrna) Negati ve negati ve Not Available [facility] (Lab) [address], [place], [address], 11/07/2021 19:04:08 10/29/20 21 10/29/2021 CT/GC (LOYD) , THINP REP VIAL chlamydia trachomatis, PCR Negati ve negati ve Not Available [facility] (Lab) [address], [place], [address], 11/07/2021 19:04:08 10/29/20 21 10/29/2021 CT/GC ([place]) , THINP REP VIAL neisseria gonorrhoeae, PCR Negati ve negati ve Not Available [facility] (Lab) [address], [place], [address], 11/07/2021 19:04:08 07/06/20 22 07/06/2022 IMAGE GUIDE D PAP AND HPV REGAR DLESS image guided Pap, HPV regardless of Pap result SEE RESULT S BELOW CASE REPOR T: Cytol ogy Gynec ologi belem Repor t Case: [id number] Autho adan g Provi sapna: Vish Guidry MD Colle cted: 07/06 0951 Order ing Locat ion: [place] [facility] Recei bennie: 07/07 0227 First Scree n: Janina Ratliff Speci men: Scree derrell Pap - Image d, Cervi x STATE MENT OF ADEQU ACY: Satis facto ry for evalu ation Trans forma tion zone compo nent prese nt FINAL DIAGN OSIS: Negat roman for Intra epith elial Lesio n or Marcia leal (NIL) . Elect jordan banuelos tacho d by Janina Ratliff on 2021 at 2:56 PM ----- ----- ----- ----- ----- ----- ----- ----- ----- ----- ----- ----- ----- ----- ----- ----- ----- ---- HPV RESUL TS: HPV mRNA E6/E7 : No HPV mRNA Detec leah NOTE: This high risk HPV mRNA assay detec ts fourt een high- risk HPV types (16, 18, 31, 33, 35, 39, 45, 51, 52, 56, 58, 59, 66, 68) witho ut diffe renti ation . COMME NT: Note: This speci men was revie wed by a Cytot echno logis t and/o r Patho logis t (as indic ated in this repor t) after evalu ation using the Thinp rep Imagi ng Syste m. CLINI BELEM INFOR MATIO N: Menst rual Statu s: LMP (if appli cable ): Clini belem Histo ry/Pr eviou s Pap: Type of Neopl lul (if appli cable ): Signi fican t Clini belem Findi ngs: Other Histo ry: Hormo karlene (if appli cable ): PAP EDUCA FIONA L NOTE: The Pap Test is a scree derrell test with an inher ent false negat roman rate. Liqui d-bas ed sampl ing may decre ase, but will not elimi lula, false negat roman resul ts. A negat roman resul t does not precl ude the prese nce and/o r devel opmen t of disea se, since the prese nce of abnor mal cells in the sampl e depen ds on the locat ion of the lesio n and sampl ing techn ique. Lindsey nued regul ar scree derrell is the best metho d of cance r preve ntion . If repor leah cytol ogic findi ng do not corre late with physi belem and/o r histo rical findi ngs, furth er inves tigat ion is recom julia d, as clini david avitia nted. Not Available [facility] [address], [place], [address], 07/10/2022 15:59:01 10/23/20 21 10/22/2021 MAMMO , scree derrell, bilat eral No observ ation record ed. [facility] [address], [place], [address], 10/24/2021 10:08:08 07/27/20 22 07/27/2022 US, trans vagin al No observ ation record ed. [email or web address] [place] [address], [place], [address], 07/27/2022 17:38:37 07/27/20 22 07/27/2022 US, trans vagin al No observ ation record ed. [email or web address] [address], [place], [address], 07/27/2022 20:36:24 Result Notes None recorded. 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 09:55:06 Screenin g for malignan t neoplasm of cervix Completed 201410/29/2021 Screenin g for malignan t neoplasm s of the cervix;R ecorded Elsewher e: No Locat ion: May z[facility] S ource: EHR Railway Switchman vidal: N Roslynti ce ID: [id number] Ra lable Time: 12:00:00 PM Kraishma Garciatz [facility] 09:55:01 Body mass index 30+ - obesity [id number] Completed 201710/29/2021 Body mass index (BMI) 37.0-37. 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 09:54:[address] Concept Completed 201810/29/2021 Encntr for general adult medical exam w/o abnormal findings ;Recorde d Elsewher e: No Locat ion: [facility] S ource: E[employer] Switch[employer] vidal: N Roslynti ce ID: [id number] Ra lable Time: 08:30:00 AM Karishma Parra [facility] 09:55:04 Proteinu giovani [id number] Completed 201310/29/2021 Proteinu giovani;Judah rded Elsewher e: No Locat ion: [facility] S ource: [employer] vidal: N Practi ce ID: [id number] Ra lable Time: 09:00:00 AM Karishma Garciatz [facility] 09:54:59 Infectio n screenin g Completed 201710/29/2021 Encounte r for screenin g for oth infec/pa rastc diseases ;Recorde d Elsewher e: No [facility]: [facility] [employer] Switch[employer] vidal: N Nuria ce ID: [id number] Ra lable Time: 09:27:27 AM Karishma ulrich, [facility] 1 09:54:58 Adult health examinat ion Completed 201210/29/2021 Routine Medical Exam;Rec orded Elsewher e: No Locat ion: [facility] S ource: E[employer] Switch[employer] vidal: N Nuria ce ID: [id number] Ra lable Time: 09:00:00 AM Karishma ulrich, [facility] 1 09:54:47 Screenin g for malignan t neoplasm of rectum Completed 201410/29/2021 Screenin g for malignan t neoplasm s of the rectum;R ecorded Elsewher e: No Locat ion: [facility] S ource: E[employer] Switchman vidal: N Nuria ce ID: [id number] Ra lable Time: 12:00:00 PM Karishma Parra [facility], [facility] 1 09:55:03 Dietary manageme nt surveill ance Completed 201310/29/2021 Dietary surveill ance and counseli ng;Recor ded Elsewher e: No Locat ion: [facility] S ource: E[employer] Switch[employer] vidal: N Nuria ce ID: [id number] Ra lable Time: 09:00:00 AM Karishma ulrich [facility] 1 09:54:53 Blood leukocyt e number above referenc e range [id number] Completed 201710/29/2021 Elevated white blood cell count, unspecif ied;Judah rded Elsewher e: No Locat ion: [facility] S ource: E[employer] Switch[employer] vidal: N Nuria ce ID: [id number] Ra lable Time: 10:30:00 AM Karishma ulrich [facility] 1 09:54:55 Speciali zed medical examinat ion Completed 201210/29/2021 Gynecolo gical Examinat ion;Judah rded Elsewher e: No Locat ion: [facility] S ource: EHR [employer] Switch[employer] vidal: N Roslynti ce ID: [id number] Ra lable Time: 09:00:00 AM Karishma ulrich [facility] 1 09:55:08 Condylom a acuminat um of the anogenit al region [id number] Completed 201210/29/2021 Condylom a acuminat um;Recor ded Elsewher e: No Locat ion: [facility] S ource: EHR [employer] Switchman vidal: N Roslynti ce ID: [id number] Ra lable Time: 11:30:00 AM Karishma ulrich [facility] 09:54:52 Vaginola bial hernia Completed 201710/29/2021 Other specifie d noninfla mmatory disorder s of vagina;R ecorded Elsewher e: No Locat ion: [facility] S ource: EHR [employer] Switchman vidal: N Nuria ce ID: [id number] Ra lable Time: 10:00:00 AM Karishma ulrich [facility] 09:55:10 Problem Notes None recorded. Procedures Surgical History Date Name Laterality Status Provider Name and Address Organization Details Recorded Time 10/29/20 21 Date of Last Pap Smear completed Karishma Parra [facility] 10/29/2021 09:55:19 10/23/20 21 Date of Last Mammogram completed Karishma Parra [facility] 10/28/2021 17:21:51 11/15/19 21 cardiac catheterization completed Karishma Parra [facility] 11/11/2021 11:02:03 09/04/20 20 insertion of stent into vein completed Karishma Parra [facility] 10/23/2020 10:26:11 11/15/19 17 [facility]2020 20:03:38 11/15/19 16 insertion of catheter into cardiac ventricle for stimulation using fluoroscopy guidance completed [facility] 06/18/2020 20:06:13 03/15/20 15 fluoroscopic angiography of carotid artery with contrast completed [facility] 06/18/2020 20:00:13 11/15/19 14 myringotomy with tubes discharge education completed [facility] 06/18/2020 20:02:31 11/15/19 14 Unlisted px cardiac surgery completed [facility] 06/18/2020 20:04:53 08/07/20 13 removal of mole of skin by excision completed [facility] 11/11/2021 10:59:18 11/15/19 02 biopsy completed [facility] 06/18/2020 20:02:54 07/16/19 90 ligation of bilateral fallopian tubes completed [facility] 06/18/2020 20:03:10 11/15/18 90 section completed [facility] 06/18/2020 20:03:24 11/15/18 85 termination of completed [facility] 10/28/2021 17:25:18 11/15/18 75 examination of toe completed [facility] 06/18/2020 19:58:11 Imaging Results Imaging Date Name Status LastModified by Organization Details LastModified Time 10/22/2021 MAMMO, screening, bilateral completed [place] [address] [facility] [address], [place], [address], 10/24/2021 10:08:08 07/27/2022 US, transvaginal completed [email or web address] [place], [address], 07/27/2022 17:38:37 07/27/2022 US, transvaginal completed [email or web address] [facility], [place], [address], 07/27/2022 20:36:24 Procedure Notes None recorded. Medical Equipment None Reported. Allergies Allergen ID Allergen Name Allergen Category Reaction Reaction Severity Criticality Documentation Date Start Date Code Code System Note Provider Name and Address Organization Details Recorded Time 51857 haloperid ol medicatio n Not available Not available Not available 11/01/2020 5093 RxNorm React ion: face drags ; Comme nt: [facility] sativ e Agent : Haldo l; Not Available [facility] 14:20:44 1569 Medicinal product containin g penicilli n and acting as antibacte rial agent (product) medicatio n Not available Not available Not available 06/18/2020 74963 05 SNOMED Karishma Parra [facility] 0 19:43:06 Medications Name Sig Start Date Stop Date Status Note LastModified by Organization Details LastModified Time Singulair 10 mg tablet take 1 tablet by oral route every day in the evening active Prescrib ed Elsewher e: Yes Loca tion: [facility] odify By: [email or web address] trick En counter DateTime : 07/27/20 13 09:00:00 AM Not Available Not Available Not Available losartan 50 mg tablet take 1 tablet by oral route every day 10/29 completed Prescrib ed Elsewher e: Yes Loca tion: [facility] odify By: [email or web address] trick En counter DateTime : 07/27/20 13 09:00:00 AM Not Available Not Available Not Available celecoxib 200 mg capsule TAKE 1 CAPSULE BY MOUTH EVERY DAY active Not Available Not Available No t Available fluoxetin e 40 mg capsule TAKE 1 CAPSULE BY MOUTH EVERY DAY FOR MAJOR DEPRESSI VE DISORDER 07/04 completed Not Available Not Available Not Available cyclobenz aprine 10 mg tablet TAKE 1 TABLET BY MOUTH THREE TIMES DAILY NEEDED active Not Available Not Available No t Available furosemid e 40 mg tablet active Not Available Not Available Not Available Nicotrol NS 10 mg/mL nasal spray INHALE 1 CARTRIDG E BY MOUTH DAILY NEEDED FOR active Not Available Not Available No t Available metformin 500 mg tablet TAKE 1 TABLET BY MOUTH TWICE DAILY active Not Available Not Available No t Available cilostazo l 100 mg tablet active Not Available Not Available Not Available Qvar 80 mcg/actua tion Metered Aerosol oral inhaler inhale 2 puff by inhalati on route 2 times every day 08/30 completed Prescrib ed Elsewher e: Yes Loca tion: [facility] odify By: parker orona DateTime : 08/01/20 14 09:00:00 AM Not Available Not Available Not Available prednison e 10 mg tablet TAKE [...] BY MOUTH TWICE DAILY FOR 10 DAYS active Not Available Not Available No t Available atorvasta tin 20 mg tablet TAKE 1 TABLET BY MOUTH EVERY DAY AT BEDTIME active Not Available Not Available No t Available nicotine 14 mg/24 hr daily transderm al patch APPLY 1 PATCH ON SKIN ONCE DAILY 10/29 completed Not Available Not Available Not Available clindamyc in HCl 300 mg capsule TAKE 1 CAPSULE BY MOUTH EVERY 8 HOURS 10/29 completed Not Available Not Available Not Available albuterol sulfate 2.5 mg/3 mL (0.083 %) solution for nebulizat ion USE 1 VIAL VIA NEBULIZE R EVERY 6 HOURS NEEDED active Not Available Not Available No t Available trazodone 50 mg tablet TAKE 1 TABLET BY MOUTH EVERY NIGHT NEEDED FOR INSOMNIA active Not Available Not Available No t Available cetirizin e 10 mg tablet TAKE 1 TABLET BY MOUTH ONCE DAILY NEEDED active Not Available Not Available No t Available azithromy lorena 250 mg tablet TK 2 TS PO ON DAY 1, THEN TK 1 T PO D FOR 4 DAYS active Not Available Not Available No t Available pravastat in 40 mg tablet TAKE 1 TABLET BY MOUTH AT BEDTIME active Not Available Not Available No t Available alprazola m 1 mg tablet TAKE 1/2 (ONE-JAMES F) TABLET BY MOUTH THREE TIMES DAILY FOR ANXIETY 07/04 completed Not Available Not Available Not Available cilostazo l 50 mg tablet take 1 tablet by oral route 2 times every day 1/2 hour before or 2 hours after breakfas t and dinner 10/29 completed Prescrib ed Elsewher e: Yes [facility] By: smcaley Duglas r DateTime : 08/11/20 16 09:30:00 AM Not Available Not Available Not Available nystatin 100,000 unit/gram topical ointment ASHLIE EXT AA BID 10/29 completed Not Available Not Available Not Available fluconazo le 150 mg tablet TAKE 1 TABLET BY MOUTH NOW. MAY REPEAT IN 7 DAYS active Not Available Not Available No t Available metoprolo l succinate ER 50 mg tablet,ex tended release 24 hr TAKE 1 TABLET BY MOUTH EVERY DAY active Not Available Not Available No t Available ranitidin e 300 mg tablet 10/29 completed Not Available Not Available Not Available hydrocodo ne 5 mg-acetam inophen 325 mg tablet TAKE 1 TABLET BY MOUTH EVERY 6 HOURS NEEDED active Not Available Not Available No t Available sotalol 80 mg tablet TAKE 1 TABLET BY MOUTH EVERY 12 HOURS active Not Available Not Available No t Available ondansetr on HCl 8 mg tablet TAKE 1 TABLET BY MOUTH EVERY 8 HOURS NEEDED active Not Available Not Available No t Available meloxicam 15 mg tablet TK 1 T PO ONCE D PRN 10/29 completed Not Available Not Available Not Available ondansetr on HCl 4 mg tablet TAKE 1 TABLET BY MOUTH 4 TIMES DAILY NEEDED FOR NAUSEA active Not Available Not Available No t Available famotidin e 40 mg tablet TAKE 1 TABLET BY MOUTH EVERY DAY active Not Available Not Available No t Available prednison e 20 mg tablet TAKE 2 TABLETS BY MOUTH EVERY DAY FOR 5 DAYS active Not Available Not Available No t Available isosorbid e mononitra te ER 30 mg tablet,ex tended release 24 hr active Not Available Not Available Not Available metoprolo l succinate ER 100 mg tablet,ex tended release 24 hr TAKE 1 TABLET BY MOUTH EVERY DAY 10/29 completed Not Available Not Available Not Available cromolyn 4 % eye drops INSTILL 1 DROP IN EACH EYE THREE TIMES DAILY active Not Available Not Available No t Available clobetaso l 0.05 % topical cream APPLY A THIN LAYER TOPICALL Y TO THE AFFECTED AREA TWICE DAILY active Not Available Not Available No t Available amlodipin e 2.5 mg tablet take 1 tablet by oral route every day 10/29 completed Prescrib ed Elsewher e: Yes Loca tion: [facility] odify By: [email or web address] Duglas orona DateTime : 08/11/20 16 09:30:00 AM Not Available Not Available Not Available potassium chloride ER 10 mEq tablet,ex tended release TAKE 1 TABLET BY MOUTH EVERY DAY active Not Available Not Available No t Available metronida zole 500 mg tablet take 4 tablets at once 10/29 completed Not Available Not Available Not Available clopidogr el 75 mg tablet TAKE 1 TABLET BY MOUTH EVERY DAY active Not Available Not Available No t Available amlodipin e 5 mg tablet TK 1 T PO QD 10/29 completed Not Available Not Available Not Available bacitraci n zinc 500 unit/gram topical ointment APPLY TOPICALL Y TO THE AFFECTED AREA THREE TIMES DAILY active Not Available Not Available No t Available Motrin 100 mg tablet take 2 tablet by oral route every 4 - 6 hours as needed with food 10/29 completed Prescrib ed Elsewher e: Yes Loca tion: [facility] odify By: [email or web address] trick En counter DateTime : 07/27/20 13 09:00:00 AM Not Available Not Available Not Available ciproflox acin 500 mg tablet 06/18 completed Not Available Not Available Not Available sulfameth oxazole 800 mg-trimet hoprim 160 mg tablet TAKE 1 TABLET BY MOUTH TWICE DAILY FOR 7 DAYS active Not Available Not Available No t Available hydrocodo ne 10 mg-acetam inophen 325 mg tablet TAKE 1 TABLET BY MOUTH TWICE DAILY NEEDED active Not Available Not Available No t Available omeprazol e 40 mg capsule,d elayed release TK 1 C PO QD active Not Available Not Available No t Available sotalol 120 mg tablet active Not Available Not Available Not Available triamcino lone acetonide 0.1 % topical cream APPLY TOPICALL Y TO THE AFFECTED AREA TWICE DAILY active Not Available Not Available No t Available vancomyci n 125 mg capsule TAKE 1 CAPSULE BY MOUTH EVERY 6 HOURS FOR 10 DAYS active Not Available Not Available No t Available ondansetr on 8 mg disintegr ating tablet DISSOLVE 1 TABLET IN MOUTH EVERY 8 HOURS NEEDED active Not Available Not Available No t Available baclofen 20 mg tablet take 1 tablet by oral route 3 times every day x 7 days 10/29 completed Prescrib ed Elsewher e: No Locat ion: [facility] odify By: juan miguel tirado DateTime : 09/01/20 19 08:30:00 AM Not Available Not Available Not Available aspirin 500 mg tablet take 2 tablet by oral route every 6 hours as needed active Prescrib ed Elsewher e: Yes Loca tion: [facility] odify By: [email or web address] trick En counter DateTime : 08/01/20 14 09:00:00 AM Not Available Not Available Not Available meloxicam 7.5 mg tablet 10/29 completed Not Available Not Available Not Available oxycodone -acetamin ophen 5 mg-325 mg tablet 06/18 completed Not Available Not Available Not Available hydrocort isone 2.5 % topical cream with perineal applicato r INSERT RECTALLY TO THE AFFECTED AREA AT BEDTIME active Not Available Not Available No t Available isosorbid e mononitra te ER 60 mg tablet,ex tended release 24 hr active Not Available Not Available Not Available alprazola m 0.5 mg tablet TAKE 1 TABLET BY MOUTH THREE TIMES A DAY NEEDED FOR ANXIETY active Not Available Not Available No t Available amoxicill in 875 mg tablet TAKE 1 TABLET BY MOUTH EVERY 12 HOURS FOR 7 DAYS active Not Available Not Available No t Available Metrogel Vaginal 0.75 % (37.5 mg/5 gram) insert 1 applicat orful (37.5MG) by vaginal route every day at bedtime 08/05 completed Prescrib ed Elsewher e: No Locat ion: [facility] odify By: [email or web address] trick En counter DateTime : 08/03/20 13 01:26:56 PM Not Available Not Available Not Available potassium chloride ER 20 mEq tablet,ex tended release(p art/cryst ) 10/29 completed Not Available Not Available Not Available famotidin e 20 mg tablet TAKE 1 TABLET BY MOUTH TWICE DAILY NEEDED active Not Available Not Available No t Available lorazepam 0.5 mg tablet TAKE 1 TABLET BY MOUTH THREE TIMES DAILY NEEDED FOR ANXIETY active Not Available Not Available No t Available metoclopr amide 5 mg tablet TAKE 1 TABLET BY MOUTH THREE TIMES DAILY NEEDED active Not Available Not Available No t Available pravastat in 10 mg tablet take 1 tablet by oral route every day 08/30 completed Prescrib ed Elsewher e: Yes Loca tion: [facility] odify By: parker Ardon r DateTime : 08/11/20 16 09:30:00 AM Not Available Not Available Not Available Percocet 10 mg-325 mg tablet take 1 tablet by oral route every 6 hours as needed 10/29 completed Prescrib ed Elsewher e: Yes Loca tion: [facility] odify By: parker Ardon r DateTime : 08/11/20 16 09:30:00 AM Not Available Not Available Not Available Prilosec 10 mg capsule,d elayed release take 2 capsule by oral route every day before a meal 09/01 completed Prescrib ed Elsewher e: Yes Loca tion: [facility] odify By: clifton Ardon r DateTime : 08/11/20 16 09:30:00 AM Not Available Not Available Not Available dicyclomi ne 20 mg tablet TAKE 1 TABLET BY MOUTH FOUR TIMES DAILY NEEDED 10/29 completed Not Available Not Available Not Available ciproflox acin 0.3 % eye drops INSTILL 4 DROPS TO LEFT EAR TWICE DAILY FOR 7 DAYS active Not Available Not Available No t Available lorazepam 2 mg tablet TAKE 1 TABLET BY MOUTH TWICE DAILY AND 1/2 TABLET AT BEDTIME FOR 90 DAYS active Not Available Not Available No t Available benzonata te 100 mg capsule TAKE 1 CAPSULE BY MOUTH TWICE DAILY NEEDED FOR COUGH active Not Available Not Available No t Available Xanax 0.25 mg tablet take 1 tablet by oral route 3 times every day 10/29 completed Prescrib ed Elsewher e: Yes Loca tion: [facility] odify By: parker Ardon r DateTime : 08/11/20 16 09:30:00 AM Not Available Not Available Not Available doxycycli ne monohydra te 100 mg capsule TAKE 1 CAPSULE BY MOUTH TWICE DAILY FOR 10 DAYS active Not Available Not Available No t Available cephalexi n 500 mg capsule TAKE 1 CAPSULE BY MOUTH EVERY 12 HOURS active Not Available Not Available No t Available pantopraz ole 40 mg tablet,de layed release TAKE 1 TABLET BY MOUTH DAILY active Not Available Not Available No t Available hyoscyami ne sulfate 0.125 mg tablet TAKE 1 TABLET BY MOUTH EVERY 4 HOURS NEEDED FOR SPASMS active Not Available Not Available No t Available fluoxetin e 20 mg tablet TAKE 3 TABLETS BY MOUTH EVERY DAY FOR MAJOR DEPRESSI ON OR PANIC DISORDER 07/04 completed Not Available Not Available Not Available neomycin- polymyxin -dexameth 3.5 mg/mL-10, 000 unit/mL-0 .1% eye drops INSTILL 1 DROP INTO AFFECTED EYE(S) EVERY 3 TO 4 HOURS WHILE AWAKE active Not Available Not Available No t Available nystatin 100,000 unit/gram topical cream APPLY TO THE AFFECTED AREA EVERY MORNING AND EVERY EVENING 10/29 completed Not Available Not Available Not Available prednison e 50 mg tablet TAKE 1 TABLET BY MOUTH DAILY 10/29 completed Not Available Not Available Not Available promethaz ine 25 mg tablet TAKE 1 TABLET BY MOUTH FOUR TIMES DAILY NEEDED active Not Available Not Available No t Available metoprolo l tartrate 50 mg tablet TAKE 1 TABLET BY MOUTH EVERY 12 HOURS active Not Available Not Available No t Available nicotine 21 mg/24 hr daily transderm al patch APPLY 1 PATCH THE SKIN ONCE DAILY active Not Available Not Available No t Available nystatin- triamcino lone 100,000 unit/g-0. 1 % topical cream 10/29 completed Not Available Not Available Not Available nitroglyc bobby 0.4 mg sublingua l tablet active Not Available Not Available Not Available mirtazapi ne 15 mg tablet TAKE 1/2 TABLET BY MOUTH AT BEDTIME FOR MAJOR DEPRESSI ON OR PANIC DISORDER active Not Available Not Available No t Available metoprolo l succinate ER 25 mg tablet,ex tended release 24 hr 10/29 completed Not Available Not Available Not Available ergocalci ferol (vitamin D2) 1,250 mcg (50,000 unit) capsule TAKE 1 CAPSULE BY MOUTH 1 TIME A WEEK active Not Available Not Available No t Available Wellbutri n 100 mg tablet take 1 tablet by oral route 2 times every day 08/11 completed Prescrib ed Elsewher e: Yes Loca tion: [facility] odify By: [email or web address] Duglas r DateTime : 08/05/20 15 12:00:00 PM Not Available Not Available Not Available epinephri ne 0.3 mg/0.3 mL injection , auto-inje ctor active Not Available Not Available Not Available ibuprofen 600 mg tablet TAKE 1 TABLET BY MOUTH THREE TIMES DAILY active Not Available Not Available No t Available Lopid 600 mg tablet take 1 tablet by oral route 2 times every day 30 minutes before morning and evening meal active Prescrib ed Elsewher e: Yes [facility] By: [email or web address] trick En counter DateTime : 08/01/20 14 09:00:00 AM Not Available Not Available Not Available polyethyl afsaneh glycol 3350 17 gram/dose oral powder DISSOLVE 17 GRAMS IN LIQUID AND TAKE BY MOUTH ONCE DAILY active Not Available Not Available No t Available levofloxa lorena 500 mg tablet TAKE 1 TABLET BY MOUTH ONCE DAILY FOR 7 DAYS active Not Available Not Available No t Available methylpre dnisolone 4 mg tablets in a dose pack FOLLOW PACKAGE DIRECTIO NS 10/29 completed Not Available Not Available Not Available albuterol sulfate HFA 90 mcg/actua tion aerosol inhaler INHALE 2 PUFFS BY MOUTH EVERY 4 HOURS active Not Available Not Available No t Available oxybutyni n chloride 5 mg tablet TAKE 1 TABLET BY MOUTH THREE TIMES DAILY active Not Available Not Available No t Available ondansetr on 4 mg disintegr ating tablet DIS 1 T ON THE TONGUE Q 6 H PRF NAUSEA OR VOM 10/29 completed Not Available Not Available Not Available cefdinir 300 mg capsule TAKE 1 CAPSULE BY MOUTH EVERY 12 HOURS FOR 7 DAYS active Not Available Not Available No t Available losartan 100 mg tablet TAKE 1 TABLET BY MOUTH EVERY DAY active Not Available Not Available No t Available fluoxetin e 20 mg capsule TAKE 1 CAPSULE BY MOUTH DAILY active Not Available Not Available No t Available fluticaso ne propionat e 50 mcg/actua tion nasal spray,kayla pension USE 1 SPRAY NASALLY EVERY DAY active Not Available Not Available No t Available Ambien 5 mg tablet take 2 tablet by oral route every day at bedtime 07/02 /2018 completed Prescrib ed Elsewher e: Yes Loca tion: [facility] odify By: federico Junie bashir DateTime : 08/11/20 16 09:30:00 AM Not Available Not Available Not Available doxycycli ne hyclate 100 mg tablet TAKE 1 TABLET BY MOUTH TWICE DAILY FOR 7 DAYS active Not Available Not Available No t Available dicyclomi ne 10 mg capsule 10/29 completed Not Available Not Available Not Available metoclopr amide 10 mg tablet TAKE 1 TABLET BY MOUTH TWICE DAILY NEEDED FOR NAUSEA OR VOMITING active Not Available Not Available No t Available amoxicill in 875 mg-potass ium clavulana te 125 mg tablet TAKE 1 TABLET BY MOUTH EVERY 12 HOURS active Not Available Not Available No t Available nicotine 7 mg/24 hr daily transderm al patch UNWRAP AND APPLY 1 PATCH TO SKIN ONCE DAILY active Not Available Not Available No t Available metoprolo l tartrate 5 mg/5 mL intraveno us solution inject 5 millilit er by intraven ous route every 2 minutes for 3 doses 10/29 completed Prescrib ed Elsewher e: Yes [facility] By: parker Encounte r DateTime : 08/11/20 16 09:30:00 AM Not Available Not Available Not Available oxycodone 5 mg tablet TAKE 1 TABLET BY MOUTH EVERY 6 HOURS NEEDED FOR PAIN active Not Available Not Available No t Available neomycin- polymyxin -hydrocor t 3.5 mg-10,000 unit/mL-1 % ear drops,kayla p SHAKE LIQUID AND INSTILL 4 DROPS TO AFFECTED EAR THREE TIMES DAILY active Not Available Not Available No t Available ezetimibe 10 mg tablet TAKE 1 TABLET BY MOUTH EVERY DAY active Not Available Not Available No t Available nicotine (polacril ex) 4 mg buccal lozenge 10/29 completed Not Available Not Available Not Available Singulair 4 mg oral granules in packet 10/29 completed Prescrib ed Elsewher e: Yes Loca tion: [facility] odify By: parker Encounte r DateTime : 08/11/20 16 09:30:00 AM Not Available Not Available Not Available ciproflox acin 0.3 %-dexamet hasone 0.1 % ear drops,kayla pension active Not Available Not Available Not Available rosuvasta tin 10 mg tablet TK 1 T PO QD 10/29 completed Not Available Not Available Not Available rosuvasta tin 20 mg tablet TK 1 T PO QD HS 10/29 completed Not Available Not Available Not Available Crestor 5 mg tablet take 2 tablet by oral route every day 10/29 completed Prescrib ed Elsewher e: Yes Loca tion: [facility] odify By: parker Encounte r DateTime : 08/30/20 18 10:00:00 AM Not Available Not Available Not Available Spiriva with [employer] r 18 mcg and inhalatio n capsules INHALE 1 PUFF BY MOUTH ONCE DAILY active Not Available Not Available No t Available mirtazapi ne 7.5 mg tablet TAKE 1 TABLET BY MOUTH AT BEDTIME active Not Available Not Available No t Available nitrofura ntoin monohydra te/macroc rystals 100 mg capsule TAKE 1 CAPSULE BY MOUTH EVERY 12 HOURS FOR 5 DAYS active Not Available Not Available No t Available Symbicort 160 mcg-4.5 mcg/actua tion HFA aerosol inhaler INHALE 2 PUFFS BY MOUTH TWICE DAILY active Not Available Not Available No t Available Amrix 15 mg capsule,e xtended release take 1 capsule by oral route every day 10/29 completed Prescrib ed Elsewher e: Yes Loca tion: [facility] odify By: parker Encounte r DateTime : 08/11/20 16 09:30:00 AM Not Available Not Available Not Available Fenoglide 40 mg tablet take 2 tablet by oral route every day 08/01 completed Prescrib ed Elsewher e: Yes Loca tion: [facility] odify By: [email or web address] trick En counter DateTime : 07/27/20 13 09:00:00 AM Not Available Not Available Not Available Flovent Diskus 100 mcg/actua tion powder for inhalatio n inhale 1 puff by inhalati on route 2 times every day 08/01 completed Prescrib ed Elsewher e: Yes Loca tion: [facility] odify By: [email or web address] trick En counter DateTime : 07/27/20 13 09:00:00 AM Not Available Not Available Not Available dexlansop razole 30 mg capsule,b iphase delayed release TAKE 1 CAPSULE BY MOUTH DAILY active Not Available Not Available No t Available ProChambe r USE DIRECTED active Not Available Not Available No t Available Fish Oil 120 mg-180 mg-500 mg capsule 08/05 completed Prescrib ed Elsewher e: Yes Loca tion: [facility] odify By: [email or web address] trick En counter DateTime : 08/01/20 14 09:00:00 AM Not Available Not Available Not Available fluoxetin e 60 mg tablet TAKE 1 TABLET BY MOUTH EVERY DAY FOR MAJOR DEPRESSI VE DISORDER active Not Available Not Available No t Available Xarelto 20 mg tablet TAKE 1 TABLET BY MOUTH DAILY AT 5 PM active Not Available Not Available No t Available OneTouch Verio test strips USE DIRECTED active Not Available Not Available No t Available Chantix Starting Month Box 0.5 mg (11)-1 mg (42) tablets in dose pack active Not Available Not Available Not Available Eliquis 5 mg tablet TAKE 1 TABLET BY MOUTH EVERY 12 HOURS active Not Available Not Available No t Available Repatha SureClick 140 mg/mL subcutane ous pen injector INJECT 1 PEN UNDER THE SKIN EVERY 14 DAYS active Not Available Not Available No t Available OneTouch Delica Plus Lancet 33 gauge USE 1 TO CHECK GLUCOSE ONCE DAILY active Not Available Not Available No t Available Vitals Date Recorded Body height Body mass index (BMI) Body weight Systolic blood pressure Diastolic blood pressure Provider Name and Address Organization Details Last Updated DateTime 10/29/2021 156.21 cm 39.6 kg/m2 46904.17 g 120 mm[Hg] 81 mm[Hg] Karishma Parra [facility] 1 09:47:31 Date Recorded Body height Body mass index (BMI) Body weight Systolic blood pressure Diastolic blood pressure Provider Name and Address Organization Details Last Updated DateTime 07/04/2022 156.21 cm 35.9 kg/m2 26969.33 g 113 mm[Hg] 71 mm[Hg] Loly Cárdenas [facility] 2 10:37:42 Date Recorded Body height Body mass index (BMI) Body weight Systolic blood pressure Diastolic blood pressure Provider Name and Address Organization Details Last Updated DateTime 08/07/2022 156.21 cm 36.6 kg/m2 88550.7 g 132 mm[Hg] 84 mm[Hg] Leilani Gramajo [facility] 2 15:20:32 Date Recorded Body height Body mass index (BMI) Body weight Systolic blood pressure Diastolic blood pressure Provider Name and Address Organization Details Last Updated DateTime 10/23/2020 156.21 cm 37.2 kg/m2 64491.47 g 139 mm[Hg] 97 mm[Hg] Karishma Garciatz [facility] 0 10:23:31 Social History Question Answer Notes LastModified by [employer] Details LastModified Time Tobacco Smoking Status Current Every Day Smoker Not Available [facility] 09/17/2020 03:28:11 What Is Your Level Of Alcohol Consumption? Occasional [id number] Information not available 09/17/2020 Which Illicit Or Recreational Drugs Have You Used? Marjuania [id number] Information not available 09/17/2020 Do You Or Have You Ever Used E-cigarettes Or Vape? Never Used Electronic Cigarettes [id number] Information not available 09/17/2020 What Was The Date Of Your Most Recent Tobacco Screening? 10/23/2020 [email or web address] Information not available 10/23/2020 Do You Or Have You Ever Used Smokeless Tobacco? Never Used Smokeless Tobacco [id number] Information not available 09/17/2020 Sex: Unknown Functional Status Question Answer Note LastModified by [employer] Details LastModified Time What is your exercise level? Occasional [id number] Information not available 09/17/2020 Mental Status None recorded. Family History Relationship Description Onset Age of this Age Resolved Age Notes LastModified by Organization Details LastModified Time Paternal Grandfather Diabetes mellitus [email or web address] Not available 06/18 19:56:07 Paternal Grandmother Diabetes mellitus [email or web address] Not available 06/18 19:56:07 Paternal Uncle Diabetes mellitus [email or web address] Not available 06/18 19:56:07 Sister Disorder of thyroid gland [email or web address] Not available 06/18 19:56:18 Sister Malignant tumor of breast [email or web address] Not available 06/18 19:56:25 Sister Malignant neoplasm of urinary bladder [email or web address] Not available 10/23 11:48:49 Notes:Paternal grandfather: Diabetes mellitus Paternal grandmother: Diabetes mellitus Paternal uncle: Diabetes mellitus Sister: breast, Thyroid disease Medical History Condition Response Allergies (Food, seasonal, environmental ) Y Other N Drug/Latex Allergies/Reactions Y Blood Transfusion N Breast Cancer N Dermatologic Disorders N Lung Disease N Defects or Inherited Disease N Breast Problem N Gestational Diabetes N Hematologic disorders N Anesthesia Complications N History of STI Y Deep Vein Thrombosis N Polycystic ovary syndrome N Anxiety Disorder Y Autoimmune disease N Arthritis Y Polyps N Infertility N Acid Reflux (GERD) Y History of abnormal pap N Cancer N Varicosities N Stroke Y Neurologic/Epilepsy Y Endometriosis N High Cholesterol Y Fibromyalgia Y Headaches N Kidney Disease N Heart Problems Y Thyroid Problems N Kidney or Bladder Problems N GI Problems N Eating Disorder N Anemia N Art (IVF or FET) N Psychiatric Illness N Ovarian Cancer N Diabetes Y Pulmonary (TB, Asthma) Y Hepatitis/Liver Disease N No Past Medical History N Eczema N Urinary Tract Infection N Abuse/Domestic Violence N Asthma Y Trauma/Violence N Depression/ depression Y Heart Disease Y Pre-Eclampsia N Hypertension Y Osteoporosis N Thrombophilias N Gynecological History Statement/Question Response If Post Menopausal, Age at Menopause 53 Abnormal Pap N Date of Last Mammogram 10/23/2021 Most Recent Bone Density Date of LMP 11/15/2013 STIs/STDs Y Date of Last Pap Smear 10/29/2021 Current Control Method Menopause Desired Control Method Sterilizati on LMP Unknown Obstetrics History GPAL:G 3 P 2 0 1 2 Type Value Full Term 2 Induced 1 Living 2 Total 3 Past Encounters Encounter ID Performer Location Encounter Start Date Encounter Closed Date Diagnosis/Indication Diagnosis SNOMED-CT Code Diagnosis ICD10 Code [id number] Jacquelin Dahl CNM [place] [address],[facility] [place] [address] 06/14/2020 09:52:15 06/14/2020 11:06:07 Candidiasis of skin 30159866 B37.2 Acute urin parvin tract infection 520342772 N39.0 [id number] Jacquelin Dahl CNM [place] [address],[place] [address] 10/23/2020 10:08:50 10/23/2020 11:15:06 Gynecologic examination 31686960 Z01.419 Candidiasis of skin 4988 3006 B37.2 [id number] Jacquelin Dahl, [facility] [address],[place] [address] 10/29/2021 09:23:52 10/29/2021 10:13:55 Gynecologic examination 17358265 Z01.419 [id number] Vicente Guidry MD [place] [address],[place] [address] 07/04/2022 10:17:23 07/04/2022 11:32:56 Cyst of ovary 22336910 N83.209 Pain in pelvis 22217032 R10.2 [id number] Vicente Guidry MD [place] [address],[place] [address] 07/27/2022 11:58:57 07/27/2022 12:52:30 Pain in pelvis 27151048 R10.2 R93.89 [id number] Vicente Guidry MD [place] [address],[place] [address] 08/07/2022 14:30:19 08/07/2022 16:28:20 Pain in pelvis 98617292 R10.2 R93.89 Health Concerns Section Related Observation LastModified by Organization Detai ls LastModified Time None Recorded Concern Status LastModified by Organization Details LastModified Time None Recorded Advance Directives Directive None Recorded Payers Encounter Date Sequence Insurance Name Policy Number Policy Larsen Covered Member ID Larsen Member ID Guarantor Name 10/23/2020 1 [facility] PRIOR TO 05/15/2021 (MEDICAID REPLACEMENT - HMO) Rody Zaidi [id number] 10/29/2021 1 [facility] ON OR AFTER 05/15/21 (MEDICAID REPLACEMENT - HMO) Rody Zaidi [id number] 07/04/2022 1 [facility] ON OR AFTER 05/15/21 (MEDICAID REPLACEMENT - HMO) Rody Zaidi [id number] 07/27/2022 1 [facility] ON OR AFTER 21 (MEDICAID REPLACEMENT - HMO) Rody Zaidi [id number] 08/07/2022 1 [facility] - DOS ON OR AFTER 21 (MEDICAID REPLACEMENT - HMO) Rody Zaidi [id number] Notes Date Note Type Note Provider Name and Address Organization Details Recorded Time 10/23/2020 text/html Annual GYNReport ed bypatient.Notes:mamm ogram due 01/2021, having a cardiac cath in a few days, hx blood clots, stents sees multiple specialties, has had recent colonoscopy, 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 10/23/2020 11:15:04 10/29/2021 text/html Annual GYNReport ed bypatient.Breast:No breast pain; No breast lump; No nipple discharge Sexual complaints:No sexual complaints; No pain during intercourse; Normal libido Menopausal Symptoms:No menopausal symptoms; Normal vaginal lubrication Psychological symptoms:No depression; No anxiety; No PMDD Preventive measures:Encourage self breast examination; Encourage regular exercise; Encourage no tobacco use; Encourage regular mammograms starting age 41Notes:wants pap and std testing, mamogram just done needs dexa saw pcp already for the year Jacquelin Dahl CNM [address], [place], [address], [facility] 10/29/2021 09:57:51 07/04/2022 text/html This patient is a 61-year-old female presents for follow-up on ovarian cyst . She reports.flank and pelvic pain on the left side. bonillaitesteve, adilene,. We discussed CT scan results. We discussed how decisions are made regarding ovarian cyst. We require pelvic ultrasound. She denies any vaginal bleeding. She denies any vaginal discharge. She denies any nausea, vomiting, fever, chills. She denies any chest pain or shortness of breath today. Vicente Guidry MD [address], [place], [address], [facility] 08/07/2022 16:06:55 08/07/2022 text/html Patient is 61-year-old female who presents for follow-up after identification of a pelvic cyst/ ovarian cyst. This cyst was identified emergency department. We reviewed the ultrasound results that we obtained here. The ultrasound is essentially normal with a small cystic structure on the left ovary. Is 8 mm. The cyst reported only a CT scan from the ultrasound is from the right side. Her pain is on the left side. We agreed to observe. She has had a series of urologic procedures in the bladder and the right ureter. We agreed to observe her symptoms. She will follow up as needed. Vicente Guidry MD [address], [place], [address], [facility] 08/07/2022 16:12:52 OBGyn Episode Ob Episode Information Episode Created Date Number of Fetuses Patient Bloodtype Patient rh Status Prepregnancy Weight lbs Domestic Partner Domestic Partner Phone Father Name Functional Director Status 06/18/20 20 1 CLOSED Fetus Data First Name Last Name Admitted to NICU Weight (g) Sex Living Outcome Pediatric Complications Fetus ID Race Codes Race Delivery Type [phone] 3 F Full Term [id number] Primary Junior Calculation JUNIOR Calculation Method Initial Junior Date Initial Exam Date Initial Exam Provider Initial Ultrasound Date Last Menstrual Period Date Ultra Sound Weeks Gestation Conception by IVF Embryo Age at Transfer Date of Transfer 0 Eighteen To Twenty Week Junior Update Ultra Sound Date Fundal Height At Umbil Quickening Date Ultra Sound Latest Weeks Gestation Final Junior Confirmed By Final Junior Confirmed Date Final Junior Date Ultra Sound Latest Days Gestation 0 0 Menstrual History Last Menstrual Date Menses Monthly On Bcp Conception Prior Menses Frequency Hcg Plus Date Menarche Onset Age Delivery Information Delivery Date Delivery Type Labor Anesthesia Weeks Gestation Incision Type Labor Labor Length Hrs Delivered By Post Complications Tubal Sterilization Discharge Date Comments 0 40 Discharge Information Feeding Method Contraceptive Method Maternal HG B and HCT Levels Ob Episode Information Episode Created Date Number of Fetuses Patient Bloodtype Patient rh Status Prepregnancy Weight lbs Domestic Partner Domestic Partner Phone Father Name Functional Director Status 06/18/20 20 1 CLOSED Fetus Data First Name Last Name Admitted to NICU Weight (g) Sex Living Outcome Pediatric Complications Fetus ID Race Codes Race Delivery Type , Induced [id number] Junior Calculation JUNIOR Calculation Method Initial Junior Date Initial Exam Date Initial Exam Provider Initial Ultrasound Date Last Menstrual Period Date Ultra Sound Weeks Gestation Conception by IVF Embryo Age at Transfer Date of Transfer 0 Eighteen To Twenty Week Junior Update Ultra Sound Date Fundal Height At Umbil Quickening Date Ultra Sound Latest Weeks Gestation Final Junior Confirmed By Final Junior Confirmed Date Final Junior Date Ultra Sound Latest Days Gestation 0 0 Menstrual History Last Menstrual Date Menses Monthly On Bcp Conception Prior Menses Frequency Hcg Plus Date Menarche Onset Age Delivery Information Delivery Date Delivery Type Labor Anesthesia Weeks Gestation Incision Type Labor Labor Length Hrs Delivered By Post Complications Tubal Sterilization Discharge Date Comments 5 inductio n Discharge Information Feeding Method Contraceptive Method Maternal HG B and HCT Levels Ob Episode Information Episode Created Date Number of Fetuses Patient Bloodtype Patient rh Status Prepregnancy Weight lbs Domestic Partner Domestic Partner Phone Father Name Functional Director Status 06/18/20 20 1 CLOSED Fetus Data First Name Last Name Admitted to NICU Weight (g) Sex Living Outcome Pediatric Complications Fetus ID Race Codes Race Delivery Type [id number] M Full Term [id number] Vaginal Delivery Junior Calculation JUNIOR Calculation Method Initial Junior Date Initial Exam Date Initial Exam Provider Initial Ultrasound Date Last Menstrual Period Date Ultra Sound Weeks Gestation Conception by IVF Embryo Age at Transfer Date of Transfer 0 Eighteen To Twenty Week Junior Update Ultra Sound Date Fundal Height At Umbil Quickening Date Ultra Sound Latest Weeks Gestation Final Junior Confirmed By Final Junior Confirmed Date Final Junior Date Ultra Sound Latest Days Gestation 0 0 Menstrual History Last Menstrual Date Menses Monthly On Bcp Conception Prior Menses Frequency Hcg Plus Date Menarche Onset Age Delivery Information Delivery Date Delivery Type Labor Anesthesia Weeks Gestation Incision Type Labor Labor Length Hrs Delivered By Post Complications Tubal Sterilization Discharge Date Comments 7 Discharge Information Feeding Method Contraceptive Method Maternal HG B and HCT Levels
--- OUTSIDE RECORDS SUMMARY | 2024-11-12 05:21 | XMS_ITS | Continuity of Care Document ---
Author Organization [place] - [facility], [facility] [place] Address [address] [place] [address] Care Team Providers Care Tamping Machine Operator Road Forms Name Role Phone DARLEEN SALGADO ZACHARY Primary Care Provider DARLEEN SALGADO ZACHARY Referring Provider [phone] Assessment No assessment recorded. Plan of Treatment Reminders Order Date Submit Date Provider Last Modified By Organization Details Last Modified Time Details Appointments None recorded. Lab None recorded. Referral None recorded. Procedures None recorded. Surgeries None recorded. Imaging None recorded. Medication Orders fluticasone propionate 50 mcg/actuati on nasal spray,suspe nsion 2023 024 [id number], [address] [facility], [place], [place], [id number], 4 11:10:22 montelukast 10 mg tablet 2023 024 [facility]41205, [address] [facility], [place], [place], [id number], 4 11:10:22 ketorolac 30 mg/mL (1 mL) injection solution 2023 024 [id number] Not available 04:24:08 Patient TargetsNo targets recorded. Patient InstructionsNo instructions recorded. Reason for Referral None Reported. Results Created Date Observation Date Name Description Value Unit Range Abnormal Flag Note LastModifiedBy Organization Detail LastModifiedTime 09/13/20 24 09/13/2024 XR, hand, 2 view No observ ation record ed. [email or web address] [facility] [address], [place], [address], 09/13/2024 16:59:37 Result Notes None recorded. Problems Name Problem SNOMED Code Status Onset Date Resolution Date Notes Provider Name and Address Organization Details Recorded Time Neoplasm of urinary bladder 301999968 Active 2021 Not Available [facility] 4 07:30:46 Hyperchole sterolemia 97338934 Active 2016 Not Available [facility] 4 07:30:46 Chronic obstructiv e pulmonary disease 33795694 Active 2016 Not Available [facility] 4 07:30:46 Malignant neoplasm of lateral wall of urinary bladder 849822718 Active 2021 Not Available [facility] 4 07:30:46 Cobalamin deficiency 201858137 Active 2022 Not Available [facility] 4 07:30:46 Asthma 472644531 Active 2016 Not Available [facility] 4 07:30:46 Cerebrovas cular accident 248240948 Active 2016 Not Available [facility] 4 07:30:46 Osteoarthr itis of knee 350154388 Active Not Available [facility] 4 07:30:46 Injury of ribs 417842016 Active 2018 Not Available [facility] 4 07:30:46 Enthesopat hy of hip region 09231531 Active Not Available [facility] 4 07:30:46 Pain in left foot 4037369943794 07 Active 2020 Not Available [facility] 4 07:30:46 Depressive disorder 19406324 Active 2016 Not Available [facility] 4 07:30:46 Hypertensi ve disorder 15919226 Active 2016 Not Available [facility] 4 07:30:46 Osteoarthr itis 145851554 Active Not Available [facility] 4 07:30:46 Peripheral vascular disease 905021277 Active 2017 Not Available [facility] 4 07:30:47 Porokerato sis 127837482 Active 2020 Not Available [facility] 4 07:30:47 Obesity 489707809 Active 2016 Not Available [facility] 4 07:30:47 Tubular adenoma of colon 235125935 Active 2018 Not Available [facility] 4 07:30:47 Anxiety 68745333 Active 2016 Not Available [facility] 4 07:30:47 Chronic colitis 54974799 Active 2018 Not Available [facility] 4 07:30:47 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 120182710 Active 2018 Not Available [facility] 4 07:30:47 Diabetes mellitus 87596281 Active 2016 Not Available [facility] 4 07:30:47 Mass of vocal cord Active 2018 Not Available [facility] 4 07:30:47 Malignant neoplasm of urinary bladder 561504572 Active 2022 Not Available [facility] 4 07:30:47 Chronic back pain 883466080 Active 2022 Not Available [facility] 4 07:30:46 Cigarette smoker 58462306 Active 2022 Not Available [facility] 4 07:30:47 Diverticul itis 170985660 Active 2022 Not Available [facility] 4 07:30:46 Essential hypertensi on 65531327 Active 2022 Not Available [facility] 4 07:30:47 Abdominal pain 52741107 Active 2022 Not Available [facility] 4 07:30:46 Type 2 diabetes mellitus 20876156 Active 2022 Not Available [facility] 4 07:30:47 Bilateral osteoarthr itis of knees 8816311198088 07 Active 2022 Not Available [facility] 4 07:30:46 Pain in right hip joint 5579035302569 02 Active 2022 Not Available [facility] 4 07:30:46 Trochanter ic bursitis of right hip 6617723142591 00 Active 2022 Not Available [facility] 4 07:30:46 Dysuria 02581615 Active 2022 Not Available [facility] 4 07:30:47 Acute exacerbati on of chronic obstructiv e pulmonary disease 428417505 Active 2022 Not Available [facility] 4 07:30:46 Blood in urine 60380629 Active 2022 Not Available [facility] 4 07:30:46 Vaginitis 78430239 Active 2022 Not Available [facility] 4 07:30:46 Allergic rhinitis 33296835 Active 2022 Not Available [facility] 4 07:30:47 Pain of left wrist 6675126569038 02 Active 2022 Not Available [facility] 4 07:30:46 Pain of left elbow joint 1831775826165 9104 Active 2022 Not Available [facility] 4 07:30:46 Pain of left forearm 1423040607683 09 Active 2022 Not Available [facility] 4 07:30:46 Multiple joint pain 24238940 Active 2022 Not Available [facility] 4 07:30:46 Acute sinusitis 66603619 Active 2022 Not Available [facility] 4 07:30:46 Dislocatio n of elbow joint 948947274 Active 2022 Not Available [facility] 4 07:30:47 Closed fracture of coronoid process of ulna 64455509 Active 2022 Not Available [facility] 4 07:30:47 Closed fracture of distal end of radius 88683416 Active 2022 Not Available [facility] 4 07:30:46 Dislocatio n of elbow joint 442404643 Active 2022 Not Available [facility] 4 07:30:47 Closed fracture of distal end of radius 05112650 Active 2022 Not Available [facility] 4 07:30:46 Increased frequency of urination 814663526 Active 2022 Not Available [facility] 4 07:30:46 Acute urinary tract infection 131106586 Active 2022 Not Available [facility] 4 07:30:47 Low back pain 174780014 Active 2022 Not Available [facility] 4 07:30:46 Vitamin D deficiency 45026918 Active 2022 Not Available [facility] 4 07:30:46 Hyperlipid emia 88053807 Active 2022 Not Available [facility] 4 07:30:47 Closed traumatic dislocatio n of elbow joint 6557060 Active 2022 Not Available [facility] 4 07:30:46 Nausea 016461255 Active 2022 Not Available [facility] 4 07:30:47 Heartburn 69024558 Active 2022 Not Available [facility] 4 07:30:46 Tachycardi a 2022187 Active 2022 Not Available [facility] 4 07:30:46 Cough 38193578 Active 2022 Not Available [facility] 4 07:30:47 Hypomagnes emia 875037091 Active 2023 Not Available [facility] 4 07:30:46 Eczema 66767854 Active 2023 Not Available [facility] 4 07:30:47 Pain in throat 142475274 Active 2023 Deisi Andrews MD [address] [place] [address], [place], [address] , [place] [facility] 4 13:19:57 Degenerati on of lumbar interverte bral disc 57219273 Active 2023 Deisi Andrews MD [address], [place], [address] , [facility] 4 14:40:03 Abscess of sigmoid colon 409665762 Active 2023 Deisi Andrews MD [address], [place], [address] , [facility] 4 14:40:16 Pain of bilateral knee joints 5284539379501 04 Active 2023 Masha Lozada CNA null, [facility] 4 12:11:51 Seasonal allergy 343714873 Active 2023 DARLEEN Carroll [address], [place], [address] , [facility] 4 11:05:30 Problem Notes None recorded. Procedures Surgical History Date Name Laterality Status Provider Name and Address Organization Details Recorded Time 10/01/20 23 colonoscopy completed Deisi Andrews MD [address], [place], [address], [facility] 01/04/2024 14:43:39 09/13/20 23 Transitional_Ca re_Management completed Beti Malloy RN [facility] 09/13/2023 11:04:05 01/22/20 23 Transitional_Ca re_Management completed Dorothy Viveros MA [facility] 01/21/2023 08:46:49 11/15/19 20 Unlisted px femur/knee completed Not Available [facility] 01/13/2023 13:51:47 Tubal Ligation completed Not Available [facility] 01/13/2023 13:51:47 section completed Not Available [facility] 01/13/2023 13:51:47 procedure on carotid body completed Not Available [facility] 01/13/2023 13:51:47 Ear Tube Placement completed Not Available [facility] 01/13/2023 13:51:47 Imaging Results None recorded. Procedure Notes None recorded. Medical Equipment None Reported. Allergies Allergen ID Allergen Name Allergen Category Reaction Reaction Severity Criticality Documentation Date Start Date Code Code System Note Provider Name and Address Organization Details Recorded Time 25119 wasp venoms environme nt angioedem a facial swelling moderate Not available Not available 01/13/2023 24376 RxNorm throa t swell s Masha Lozada LIFE INSURANCE SPECIALIST null, [employer] [facility] 4 11:21:45 19943 simvastat in medicatio n other Not available Not available 01/13/2023 70819 RxNorm ALL SATIN S!!! can't walk Masha Lozada LIFE INSURANCE SPECIALIST null, [employer] [facility] 4 11:21:21 74727 Risperdal medicatio n Not available Not available Not available 01/13/2023 24778 8 RxNorm face draws up Masha Lozada LIFE INSURANCE SPECIALIST null, [employer] [facility] 4 11:20:46 04676 Medicinal product containin g penicilli n and acting as antibacte rial agent (product) medicatio n rash Not available Not available 01/13/2023 27830 05 SNOMED Deisi Andrews MD [address] [facility], [facility] [address], [place], [address] [facility] 3 12:22:06 27509 morphine medicatio n other Not available Not available 01/13/2023 7052 RxNorm Not Available [facility] 3 13:57:09 18933 Haldol medicatio n Not available Not available Not available 01/13/2023 64449 9 RxNorm face draws up Masha Lozada LIFE INSURANCE SPECIALIST null, [employer] [facility] 4 11:20:29 72343 Halcion medicatio n other Not available Not available 01/13/2023 45887 3 RxNorm face draws up Masha Lozada LIFE INSURANCE SPECIALIST null, [employer] [facility] 4 11:19:53 Medications Name Sig Start Date [...] mg by injectio n route. 2023 active [facility]: 0003-049 4-20 Not Available Not Available Not Available lorazepam [...] administ ered by the provider 01/14 completed [facility]: 0409-427 6-17 Not Available Not Available Not [...] %) injection solution in office 2022 active [facility] 94306-82 4-01 Not Available Not Available Not Available fluoxetin [...] height Body mass index (BMI) Body weight Body temperature Heart rate Oxygen saturation Oxygen saturation in Arterial blood by Pulse oximetry Systolic blood pressure Diastolic blood pressure Provider Name and Address Organization Details Last Updated DateTime 4 157.48 cm 33.3 kg/m2 93380.8 1 g 97.9 [degF] 80 /min 96 % 96 % 120 mm[Hg] 84 mm[Hg] Yocasta Iniguez RN [facility] 4 10:59:51 Date Recorded Body height Body mass index (BMI) Body weight Body temperature Heart rate Oxygen saturation Oxygen saturation in Arterial blood by Pulse oximetry Systolic blood pressure Diastolic blood pressure Provider Name and Address Organization Details Last Updated DateTime 4 157.48 cm 33.8 kg/m2 12773.5 9 g 96.4 [degF] 74 /min 95 % 95 % 118 mm[Hg] 80 mm[Hg] Beti Malloy RN [facility] 4 10:30:08 Social History Question Answer Notes LastModified by Organizat ion Details LastModified Time Tobacco Smoking Status Current Every Day Smoker started age 16 Not Available [facility] 01/13/2023 13:51:45 What Is Your Level Of Alcohol Consumption? None [id number] Information not available 01/13/2023 What Is Your Level Of Caffeine Consumption? Moderate MIGRATION.12682 08203 Information not available 01/13/2023 In The 14 Days Before Symptom Onset, Have You Had Close Contact With A Laboratory-confir med COVID-19 While That Case Was Ill? No MIGRATION.60526 22397 Information not available 01/13/2023 In The 14 Days Before Symptom Onset, Have You Had Close Contact With A Person Who Is Under Investigation For COVID-19 While That Person Was Ill? No MIGRATION.80430 99222 Information not available 01/13/2023 What Type Of Diet Are You Following? REGULAR MIGRATION.20879 13696 Information not available 01/13/2023 Which Illicit Or Recreational Drugs Have You Used? Marijuana MIGRATION.54522 96836 Information not available 01/13/2023 What Was The Date Of Your Most Recent Tobacco Screening? 12/30/2022 MIGRATION.05395 08498 Information not available 01/13/2023 What Is Your Current Pack Years? 30ormorepacky ears MIGRATION.67024 88975 Information not available 01/13/2023 How Much Tobacco Do You Smoke? 1 PPD MIGRATION.60603 73879 Information not available 01/13/2023 Do You Use Any Illicit Or Recreational Drugs? Yes MIGRATION.23950 35908 Information not available 01/13/2023 Has Tobacco Cessation Counseling Been Provided? No MIGRATION.92035 56736 Information not available 01/13/2023 How Many Years Have You Smoked Tobacco? 45 [email or web address] Information not available 06/05/2024 Have You Recently Traveled Abroad? No MIGRATION.18970 22690 Information not available 01/13/2023 Have You Used IV Drugs? No MIGRATION.41797 90427 Information not available 01/13/2023 Do You Have Any Dietary Restrictions? No MIGRATION.51211 07040 Information not available 01/13/2023 Do You Or Have You Ever Used Any Other Forms Of Tobacco Or Nicotine? No MIGRATION.00162 42654 Information not available 01/13/2023 Sex: Unknown Functional Status Question Answer Note LastModified by Organizat ion Details LastModified Time What is your exercise level? Occasional [email or web address] Information not available 02/15/2023 Mental Status None recorded. Family History Relationship Description Onset Age of this Age Resolved Age Notes LastModified by Organization Details LastModified Time Sister Heart disease [email or web address] Not available 2023 11:25:33 Sister Hypertensive disorder [email or web address] Not available 2023 11:25:41 Sister Family history of malignant neoplasm bladde r cancer [email or web address] Not available 09/29/2024 11:38:38 Sister Family history of stroke [email or web address] Not available 09/29 11:38:38 Father Diabetes mellitus [id number] Not available 01/13/2023 13:51:48 Medical History Condition Response ARTHRITIS Y USE OF BLOOD THINNERS Y VASCULAR DISEASE Y HEART DISEASE/HEART PROBLEMS Y DIABETES, TYPE Y SKIN PROBLEMS Y EMPHYSEMA Y HEART ARRHYTHMIA Y HYPERTENSION Y COPD Y CANCER: SPECIFY Y ASTHMA Y OSTEOPOROSIS Y CATARACTS Y USE OF NSAIDS Y URINARY/BLADDER/KIDNEY PROBLEMS Y DEPRESSION (INCLUDING POST ) Y STROKE/TIA Y Gynecological History Statement/Question Response Menses Monthly N Current Control Method Menopause Obstetrics History GPAL:G 0 P 0 0 0 0 Immunizations Vaccine Type Date Status Note Provider Nam e and Address Organization Details Recorded Time Influenza, split virus, quadrivalent, preservative 0 completed Not Available [facility] 12/09/2023 07:30:48 COVID-19, mRNA, LNP-S, PF, 30 mcg/0.3 mL dose 1 completed Not Available [facility] 12/09/2023 07:30:48 pneumococcal polysaccharide PPV23 6 completed Not Available [facility] 12/09/2023 07:30:48 Tdap 1 completed Not Available [facility] 12/09/2023 07:30:48 Influenza, split virus, quadrivalent, PF 5 completed Not Available [facility] 12/09/2023 07:30:48 Influenza, split virus, quadrivalent, PF 9 completed Not Available [facility] 12/09/2023 07:30:48 Influenza, split virus, quadrivalent, PF 6 completed Not Available [facility] 12/09/2023 07:30:48 Influenza, MDCK, quadrivalent, PF 2 completed Not Available [facility] 12/09/2023 07:30:48 COVID-19, mRNA, LNP-S, PF, 30 mcg/0.3 mL dose 1 completed Not Available [facility] 12/09/2023 07:30:48 COVID-19, mRNA, LNP-S, PF, 30 mcg/0.3 mL dose 1 completed Not Available [facility] 12/09/2023 07:30:48 PCV10 6 completed Not Available [facility] 12/09/2023 07:30:48 Tdap 9 completed Not Available [facility] 12/09/2023 07:30:48 Influenza, split virus, quadrivalent, PF 7 completed Not Available [facility] 12/09/2023 07:30:48 Influenza, split virus, quadrivalent, PF 8 completed Not Available [facility] 12/09/2023 07:30:48 Past Encounters Encounter ID Performer Location Encounter Start Date Encounter Closed Date Diagnosis/Indication Diagnosis SNOMED-CT Code Diagnosis ICD10 Code [id number] DARLEEN Carroll [facility] [address] [place] [address] 08/08/2024 10:53:06 08/08/2024 11:36:59 Malignant neoplasm of urinary bladder 017169483 C67.9 Seasonal allergy 3735250 04 J30.2 Low back pain 781201061 M54.50 Health Concerns Section Related Observation LastModified by Organization Detai ls LastModified Time None Recorded Concern Status LastModified by Organization Details LastModified Time None Recorded Payers Encounter Date Sequence Insurance Name Policy Number Policy Larsen Covered Member ID Larsen Member ID Guarantor Name 08/08/2024 1 [facility] ON OR AFTER 05/15/21 (MEDICAID REPLACEMENT - HMO) Rody Zaidi [id number] Rody Zaidi Notes Date Note Type Note Provider Name and Address Organization Details Recorded Time 08/08/2024 text/html pt is here for f/u LONNIE CarrollC [address] [facility], [facility] [address], [place], [address], [facility] 08/29/2024 14:06:42 08/24/2024 text/html Patient is a 63 year old female that presents to the office for annual wellness. Patient reports she is doing well on current medications. Patient is receiving BCG treatments for bladder cancer--has 3 treatments remaining. Patient denies any other medical concerns including chest pain and shortness of breath, nausea vomiting and diarrhea. labs-orderedmammo gram-orderedcolon oscopy- (09/2023)WWE- sees GYNFlu-awareCovid -UTDTdap-UTDShing [id number]-QNGEksjbg-ZJY DARLEEN Andrea [address], [facility] [address], [place], [address], [facility] 08/24/2024 13:29:47 OBGyn Episode No OBEpisode recorded.
--- OUTSIDE RECORDS SUMMARY | 2024-11-12 05:22 | XMS_ITS | Encounter Summary ---
Author Organization [facility] Address [address] [facility] [place] [address] Care Team Providers Care Trailhead Maintenance Worker Name Role Phone Deisi Andrews MD Primary Care Provider [phone] Encounter Details Date Type Department Care Team (Late st Contact Info) Description 09/08/2024 Orders Only [facility] [address] [place] [address] [address] [place] [address] Melissa Rolon T, HYDRO STATION OPERATOR-PHYSICIAN SUPPORT COORDINATOR [address] [facility] DEPT [place] [address] Social History Tobacco Use Types Packs/Day Years [...] st Contact Info) Description 01/19/2025 11:30 AM AGRONOMY SUPERVISOR Procedure visit [facility] [address] [place] [address] [address] [place] [address] Jose Oliver MD [address] [place] [address] documented as of this encounter Goals Goal [...] QUEST Comment: ??CULTURE, URINE, ROUTINE ?Micro Number: ?[id number] ??Test Status: ? Final ??Specimen Source: ?? Urine ??Specimen Quality: ??Adequate ??Result: ?Mixed genital unruly isolated. These superficial ? bacteria are not indicative of a urinary tract ? infection. No further organism identification is ? warranted on this specimen. If clinically ? indicated, recollect clean-catch, mid-stream ? urine and transfer immediately to Urine Culture ? Transport Tube. Test Performed at: [facility] ??[address] GISELE JUSTICE MD 09/08/2024 09/09/2024 1:3 2 AM CDT Melissa Rolon HYDRO STATION OPERATOR-PHYSICIAN SUPPORT COORDINATOR LAB - MICROBIOL OGY ORDERABLES Performing Organization Address City/State/[facility] Co de Phone Number [address] [address] documented in this encounter Visit Diagnoses Not on filedocumented in this encounter Care Teams Trailhead Maintenance Worker Relationship Specialty Start Date End Date Deisi Andrews MD [address] [place] [address] DANNIE Rodríguez [id number] PCP - General Family Medicine 05/26/23 10/26/24 documented as of this encounter
--- OUTSIDE RECORDS SUMMARY | 2024-11-12 05:22 | XMS_ITS | Encounter Summary ---
Author Organization [facility] Address [address] [facility] [place] [address] Care Team Providers Care Asbestos Wire Finisher Name Role Phone Matti Balderas MD Primary Care Provider [phone] Encounter Details Date Type Department Care Team [...] st Contact Info) Description 01/19/2025 11:30 AM TRANSFORMER MAKER Procedure visit [facility] [address] [facility] [address] [place] [address] Jose Oliver MD [address] [facility] [place] [address] documented as of this encounter Goals Goal [...] on filedocumented in this encounter Care Teams Asbestos Wire Finisher Relationship Specialty Start Date End Date Matti Balderas MD [address] [place] [address] [address] [place] [address] PCP - General Family Medicine 10/27/24 documented as of this encounter
--- OUTSIDE RECORDS SUMMARY | 2024-11-12 05:22 | XMS_ITS | Encounter Summary ---
Author Organization [facility] Address [address] [place] [address] Care Team Providers Care Gas Inspector Name Role Phone Deisi Andrews MD Primary Care Provider [phone] Encounter Details Date Type Department Care Team [...] st Contact Info) Description 01/19/2025 11:30 AM SLIP INJECTOR AND APPLICATOR Procedure visit [facility] [address] [facility] [address] [place] [address] Jose Oliver MD [address] [facility] [address] [facility] [place] [address] documented as of this encounter Goals Goal [...] on filedocumented in this encounter Care Teams Gas Inspector Relationship Specialty Start Date End Date Deisi Andrews MD [address] [place] [address] [place] [address] PCP - General Family Medicine 05/26/23 10/26/24 documented as of this encounter
--- OUTSIDE RECORDS SUMMARY | 2024-11-12 05:22 | XMS_ITS | Encounter Summary ---
Author Organization [facility] Address [address] [place] [address] Care Team Providers Care Branch Coordinator Name Role Phone Deisi Andrews MD Primary Care Provider [phone] Encounter Details Date Type Department Care Team [...] st Contact Info) Description 01/19/2025 11:30 AM COURTROOM CLERK Procedure visit [facility] - Urology [address] [place] [address] Jose Oliver MD [address] [facility] [address] [facility] [place] [address] documented as of this encounter Goals Goal [...] on filedocumented in this encounter Care Teams Branch Coordinator Relationship Specialty Start Date End Date Deisi Andrews MD [address] [place] [address] [place] [address] PCP - General Family Medicine 05/26/23 10/26/24 documented as of this encounter
--- OUTSIDE RECORDS SUMMARY | 2024-11-12 05:22 | XMS_ITS | Encounter Summary ---
Author Organization [facility] Address [address] [place] [address] Care Team Providers Care Logistic Specialist Name Role Phone Deisi Andrews MD Primary Care Provider Reason for Visit * Reason Comments Blood in urine Pt BIBEMS from [facility] ED.Pt had bladder procedures by Dr Oliver on June 21. Now with hematuria and GI bleed. Pt went to [place] ED this morning due to blood in urine. Encounter Details Date Type Department Care Team (Late st Contact Info) Description 06/28/2024 2:18 PM CDT - 06/28/2024 5:53 PM T Emergency [facility] EMERGENCY DEPARTMENT [address] [place] [phone] Martir Choi MD [address] [place] [address] [place] [phone] Luis Enrique Newman DO [address] [facility] [place] [address] Hematuria, unspecified type Discharge Disposition: Home or [...] Zamora MD - 06/28/2024 4:53 PM CDT [facility] Urology Given that patient is voiding with [...] surgery or the recovery process, please contact [facility] Urology [phone] (Option #1: scheduling, Option #2 Nurse line, Option #3 surgery scheudler, Option#4 administration) on weekdays during regular business hours. If you have an urgent or emergent question on a weekend or after regular business hours, please contact [facility] at [phone] and ask for the provider intelligence operations for Urology. In addition, please contact us [...] 12 hours 10/28/2023 vitamin D, ergocalciferol, (DRISDOL) 42860 UNITS capsule Take 1 (one) capsule by [...] prompted her to present to present to [facility] today with Hgb of 15.3 and WBC [...] Problem List Diagnosis Date Noted CAD in [place] artery 10/24/2020 Priority: Not Prioritized PAD (peripheral artery disease) ([facility]) Priority: Not Prioritized MDD (recurrent major depressive disorder) in remission ([facility]) 08/05/2018 Priority: Not Prioritized GIOVANNY (generalized anxiety [...] pain 10/23 Chronic obstructive pulmonary disease (COPD) ([facility]) Depression Essential hypertension GERD (gastroesophageal reflux disease) [...] 1989 OTHER SURGERY excision of anal warts [facility] FOOT/TOES SURGERY PROC UNLISTED TRANS URETHRAL RESECT [...] History 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 [...] results for input(s): PHART , PO2ART , KRK7BHT , BEART in the last 51856 hours. Lab results smartLinks are not currently available Micro: No results found for this or any previous visit (from the past 72 hour(s)). 06/28/24 15:18 Color UA Red ! Clarity UA Slt Cloudy ! Specific [place] UA 1.028 pH UA 6.0 Protein UA [...] previous team, currently pending their recommendations. [DB] [id number] Spoke with urology who state patient is cleared to be discharged home. Report patient's UA is not concerning for infection but patient can finish prescription for Keflex that was started. State patient needs to hold her anticoagulants until her urine is clear and follow up with them in clinic.[GH] [id number] I have reviewed her diagnostic findings and [...] Luis Enrique Newman DO Emergency Medicine Attending [facility] * Martir Choi MD - 06/28/2024 2:32 PM CDT [facility] ED Attending Note Patient was seen with Dr. Burgos, Carlos A Gill and PA Student Richy Sharpe who has also contributed to this note. CC: Rody Zaidi is a 63 year old female who presents to the ED today with a chief complaint of gross hematuria. HPI: Patient has hx of bladder cancer. Patient reports she initially presented to [place] today for sixday hx of hematuria. Patient [...] Patient had CT imaging done while at [place], patient transferred with disc but not report. Per EMR review, patient presented to [facility] on 06/21/2024 to go to OR for [...] 1989 OTHER SURGERY excision of anal warts [facility] FOOT/TOES SURGERY PROC UNLISTED TRANS URETHRAL RESECT [...] 80 MG tablet vitamin D, ergocalciferol, (DRISDOL) 50755 UNITS capsule Allergies: Allergies Allergen Reactions Risperidone [...] Sat: 96 % on RA; Interpretation: WNL crane oiler: SR, nl rate Consults: Findings and studies [...] st Contact Info) Description 01/19/2025 11:30 AM AWNING INSTALLER Procedure visit [facility] - Urology [address] [place] [phone] Jose Oliver MD [address] [place] [address] documented as of this encounter Goals Goal [...] urogenital unruly ZORAN 06/29/2024 9:52 PM CDT [facility] MICROBIOLOGY Urine URINE SPECIMEN OBTAINED BY CLEAN CATCH PROCEDURE / Unknown Collection / Unknown 06/28/2024 3:18 PM CDT 06/28/2024 3:23 PM CDT Martir Choi MD LAB - MICROBIOLOGY O [facility] MICROBIOLOGY [address] [place] [address], [facility] [phone] * (ABNORMAL) URINALYSIS REFLEX TO MICROSCOPIC NO CULTURE (06/28/2024 3:18 PM CDT) Color UA Red(A) Straw, Yellow 06/28/2024 3:51 PM T [facility] Clarity UA Slt Cloudy(A) Clear 06/28/2024 3:51 PM [facility] Specific [place] UA 1.028 1.005 - 1.030 06/28/2024 3:51 PM [facility] pH UA 6.0 5.0 - 8.0 pH 06/28/2024 3:51 PM [facility] Protein UA 1+(A) Negative 06/28/2024 3:51 PM [facility] Glucose UA Negative Negative 06/28/2024 3:51 PM [facility] Ketone UA Negative Negative 06/28/2024 3:51 PM [facility] Bilirubin UA Negative Negative 06/28/2024 3:51 PM [facility] Blood UA 3+(A) Negative 06/28/2024 3:51 PM [facility] Nitrite UA Negative Negative 06/28/2024 3:51 PM [facility] Leukocyte Esterase Trace(A) Negative 06/28/2024 3:51 PM [facility] Urobilinogen UA Negative Negative mg/dL 06/28/2024 3:51 PM [facility] RBC UA >100(A) None Seen, 0-2, 3-5 /HPF 06/28/2024 3:51 PM [facility] WBC UA 0-5 None Seen, 0-5 [...] - URINALYSIS ORD ERABLES Performing Organization Address City/[facility]/ZIP Co de Phone Number [address] [address], [facility] [phone] * PT-INR [facility] (06/28/2024 3:17 PM CDT) PT 13.1 12.1 [...] Choi MD LAB - COAGULATION OR DERABLES [address] [address], [place] [phone] * BASIC METABOLIC PANEL (CALCIUM TOTAL) (06/28/2024 3:17 PM CDT) BUN 15 7 - 26 mg/dL 06/28/2024 3:51 PM CDT [facility] Creatinine 0.69 0.56 - 0.96 mg/dL 06/28/2024 3:51 PM [facility] Sodium 138 136 - 145 mmol/L 06/28/2024 3:51 PM [facility] Potassium 4.0 3.5 - 4.5 mmol/L 06/28/2024 3:51 PM [facility] Chloride 103 98 - 107 mmol/L 06/28/2024 3:51 PM [facility] CO2 26 22 - 29 mmol/L 06/28/2024 3:51 PM [facility] Glucose 102 70 - 115 mg/dL 06/28/2024 3:51 PM [facility] Calcium 9.4 8.4 - 10.2 mg/dL 06/28/2024 3:51 PM [facility] Anion Gap 9 6 - 16 06/28/2024 3:51 PM [facility] BUN/Creatinine Ratio 22 7 - 23 06/28/2024 3:51 PM [facility] Osmolality Calculated 287 275 - 295 mOsm/kg 06/28/2024 3:51 PM [facility] eGFR by CKD-EPI >90 >=90 mL/min/1.7 3 m2 06/28/2024 3:51 PM [facility] Blood BLOOD SPECIMEN / Unknown Venipuncture / Unknown 06/28/2024 3:17 PM CDT 06/28/2024 3:26 PM CDT Martir Choi MD LAB - CHEMISTRY [facility] Organization Address City/State/[facility] Co de Phone Number [address] [address], [facility] [phone] * (ABNORMAL) CBC W AUTO DIFFERENTIAL (06/28/2024 3:17 PM CDT) WBC 12.1(H) 4.0 - 10.7 x10E9/L 06/28/2024 3:33 PM [facility] RBC Count 5.43(H) 3.90 - 5.20 x10E12/L 06/28/2024 3:33 PM [facility] Hemoglobin 15.3 11.9 - 15.8 g/dL 06/28/2024 3:33 PM [facility] Hematocrit 46.0 34.8 - 46.1 % 06/28/2024 3:33 PM [facility] MCV 84.7 80.0 - 98.0 fL 06/28/2024 3:33 PM [facility] MCH 28.2 26.7 - 33.6 pg 06/28/2024 3:33 PM [facility] MCHC 33.3 31.7 - 36.3 g/dL 06/28/2024 3:33 PM [facility] RDW-CV 13.0 11.3 - 14.8 % 06/28/2024 3:33 PM [facility] Platelet Count 218 150 - 420 x10E9/L 06/28/2024 3:33 PM [facility] MPV 9.9 7.8 - 11.4 fL 06/28/2024 3:33 PM [facility] Neutrophil % 65.5 41.0 - 74.0 % 06/28/2024 3:33 PM [facility] Lymphocyte % 24.0 17.0 - 47.0 % 06/28/2024 3:33 PM [facility] Monocyte % 6.7 3.0 - 11.0 % 06/28/2024 3:33 PM [facility] Eosinophil % 3.1 0.0 - 7.0 % 06/28/2024 3:33 PM [facility] Basophil % 0.4 0.0 - 1.6 % 06/28/2024 3:33 PM [facility] Immature Granulocytes % 0.3 0.0 - 1.0 % 06/28/2024 3:33 PM [facility] Neutrophil Absolute 7.90(H) 1.60 - 7.50 x10E9/L 06/28/2024 3:33 PM [facility] Lymphocyte Absolute 2.90 1.00 - 4.40 x10E9/L 06/28/2024 3:33 PM [facility] Monocyte Absolute 0.81 0.15 - 1.00 [...] ORD ERABLES [facility] [address] [place] [address], [facility] [phone] documented in this encounter Visit Diagnoses Diagnosis [...] Nurse) documented in this encounter Care Teams Logistic Specialist Relationship Specialty Start Date End Date Deisi Andrews MD [address] [place] [address] [place] [address] PCP - General Family Medicine 05/26/23 10/26/24 documented as of this encounter
--- OUTSIDE RECORDS SUMMARY | 2024-11-12 05:22 | XMS_ITS | Encounter Summary ---
Author Organization [facility] Address [address] [facility] [place] [address] Care Team Providers Care Assistant Superintendent Name Role Phone Deisi Andrews MD Primary Care Provider [phone] Reason for Visit * Reason Onset Date Comments Reschedule Appointment 07/28/2024 Encounter Details Date Type Department Care Team (Late st Contact Info) Description 07/28/2024 Telephone [facility] - Centralized Scheduling [address] [place] [phone] Jose Oliver MD [address] [place] [address] Reschedule Appointment Social History Tobacco Use Types [...] 9:52 AM CDT Rody has a CLINIC PATIENT CARE TECHNICIAN INSTRUCTOR VISIT on 09/08/[address] Oliver that needs to be rescheduleddue to his clinic closure that day. Please call Rody to reschedule this appointment if necessary. documented in this encounter Plan of Treatment Upcoming Encounters Date Type Department Care Team (Late st Contact Info) Description 01/19/2025 11:30 AM SENIOR ELECTRONICS DESIGN ENGINEER Procedure visit [facility] - Urology [address] [place] [address] [address] [place] [address] Jose Oliver MD [address] [place] [address] documented as of this encounter Goals Goal [...] on filedocumented in this encounter Care Teams Assistant Superintendent Relationship Specialty Start Date End Date Deisi Andrews MD [address] [place] [phone] PCP - General Family Medicine 05/26/23 10/26/24 documented as of this encounter
--- OUTSIDE RECORDS SUMMARY | 2024-11-12 05:22 | XMS_ITS | Continuity of Care Document ---
Author Organization [facility] Address [address] [place] [address] Care Team Providers Care Machine Boss Name Role Phone HEADMARQUITAY Primary Care Provider Assessment No assessment recorded. Plan of Treatment Reminders Order Date Submit Date Provider Last Modified By Organization Details Last Modified Time Details Appointments ANY 15 2024 09:30A M Matti Balderas MD Not available Not available Not available Lab None recorded. Referral pain managemen t referral 2023 024 [facility], [address], [place], [address], 10/24/2024 15:10:37 Procedures None recorded. Surgeries None recorded. Imaging None recorded. Medication Orders hydrocodo ne 10 mg-acetam inophen 325 mg tablet 2023 024 [id number], [address] [facility], [place], [place], [id number], 10/05/2024 17:20:51 Patient TargetsNo targets recorded. Patient Instructions Encounter Date Encounter Id Patient Instructions Last Modified By Organization Details Last Modified Time 10/05/2024 [id number] Quitting Tobacco : Care Instructions [email or web address] Not available 10/05/2024 11:33:15 Reason for Referral Pain Management Referral for Osteoarthritis Referring Physician: Matti Balderas, Family Medicine, Encounter Date: 10/05/2024 Problems Name Problem SNOMED Code Status Onset Date Resolution Date Notes Provider Name and Address Organization Details Recorded Time Diabetes mellitus 13516858 Active 2018 Linda [place] null, [place] [facility] 9 14:43:31 Diverticul itis 069654678 Active 2018 Dr. Audrey [place], [place] [facility] 9 14:55:42 Chronic obstructiv e pulmonary disease 13029336 Active 2018 Linda [place] [facility] 9 14:57:53 Asthma 982981621 Active 2018 Lindaesther Hansen [place], [place] [facility] 9 14:57:58 Peripheral vascular disease 692615383 Active 2018 Linda [place] [facility] 9 14:58:06 Tick bite 90870472 Active 2020May 18, 2021 Hollis Dash PA-C Attn: Tiffanie fontaine,[address] [place], [address], [place] [facility] 10:21:42 Essential hypertensi on 82165169 Active 2020 Hollis Dash PA-C Attn: Tiffanie fontaine,[address] [place], [address], [place] [facility] 10:23:35 Lumbago with sciatica 975366375 Active 2020 Hollis Dash PA-C Attn: Tiffanie fontaine,[address] [place], [address], [place] [facility] 10:24:47 Tobacco dependence syndrome 53854781 Active 2020 JOSE PARDO Attn: Tiffanie g,[address] [place], [address], [place] [facility] 09:41:09 Smoker 05889299 Active 2023 Matti Balderas MD Attn: Tiffanie fontaine,[address] [place], [address], [place] - [facility] 4 10:19:16 Hyperchole sterolemia 31948948 Active 2023 Matti Balderas MD Attn: Tiffanie fontaine,[address] [facility], [place], [address], [facility] 4 10:19:16 Atheroscle rosis of coronary artery without angina pectoris 7888164221718 03 Active 2023 Matti Balderas MD Attn: Tiffanie fontaine,[address] [facility], [place], [address], [place] - [facility] 4 10:19:17 Malignant neoplasm of urinary bladder 309388738 Active 2023 Matti Balderas MD Attn: Tiffanie fontaine,[address] [facility], [place], [address], [facility] 4 10:19:18 Problem Notes None recorded. Procedures Surgical History Date Name Laterality Status Provider Name and Address Organization Details Recorded Time 2018 esophagogastroduodenoscopy completed Jourdan Hansen MA [facility] 9 14:55:25 2018 colonoscopy completed Linda Hansen MA [facility] 9 14:55:16 cataract surgery completed Linda Hansen MA [facility] 0 11:39:24 Imaging Results None recorded. Procedure Notes None recorded. Medical Equipment None Reported. Allergies Allergen ID Allergen Name Allergen Category Reaction Reaction Severity Criticality Documentation Date Start Date Code Code System Note Provider Name and Address Organization Details Recorded Time [id number] Medicinal product containin g penicilli n and acting as antibacte rial agent (product) medicatio n Not available Not available Not available 08/02/2019 72479 05 SNOMED repea ts words and face turns red? JOSE BLANCO Attn: Tiffanie fontaine,[address] [facility], [place], [address], [place] - [facility] 1 12:08:04 [id number] haloperid ol medicatio n Not available Not available Not available 08/02/2019 5093 RxNorm Linda Hansen MA [facility], [facility] 9 14:45:30 [id number] triazolam medicatio n Not available Not available Not available 08/02/2019 11780 RxNorm LindaJOEY Grigsby, [facility] 9 14:45:38 [id number] azithromy lorena medicatio n Not available Not available Not available 11/17/2019 16914 RxNorm pain in stoma ch for hours JOSE BLANCO Attn: Tiffanie fontaine,[address] [facility], [place], [address], [facility] 1 12:07:32 [id number] Risperdal medicatio n Not available Not available Not available 04/19/2020 42858 8 RxNorm LindaJOEY Grigsby, [facility] 0 11:37:43 [id number] Product containin g 3-hydroxy -3-methyl glutaryl- coenzyme A reductase inhibitor (product) medicatio n Not available Not available Not available 10/05/2024 15530 009 SNOMED Ambar Dee MA serg, [facility] 4 09:41:07 Medications Name Sig Start Date Stop Date Status Note LastModified by Organization Details LastModified Time fluoxetine 40 mg capsule TAKE 1 CAPSULE BY MOUTH DAILY active Not Available Not Available No t Available cyclobenzap rine 10 mg tablet TAKE 1 TABLET BY MOUTH THREE TIMES DAILY NEEDED active Not Available Not Available No t Available furosemide 40 mg tablet Take 1 tablet every day by oral route. 10/05 completed Not Available Not Available Not Available Nicotrol NS 10 mg/mL nasal spray INHALE 1 CARTRIDGE BY MOUTH DAILY NEEDED FOR 10/05 completed Not Available Not Available Not Available metformin 500 mg tablet TAKE 1 TABLET BY MOUTH TWICE DAILY active Not Available Not Available No t Available cilostazol 100 mg tablet Take 1 tablet twice a day by oral route. 11/22 completed Not Available Not Available Not Available prednisone 10 mg tablet TAKE 1 TABLET BY MOUTH THREE TIMES DAILY FOR 3 DAYS. THEN 1 TABLET TWICE DAILY FOR 2 DAYS. THEN 1 TABLET DAILY FOR 1 DAY 10/05 completed Not Available Not Available Not Available oxybutynin chloride ER 15 mg tablet,exte nded release 24 hr TAKE 1 TABLET BY MOUTH DAILY active Not Available Not Available No t Available doxycycline hyclate 100 mg capsule Take 1 capsule twice a day by oral route. 10/05 completed Not Available Not Available Not Available atorvastati n 20 mg tablet TAKE 1 TABLET BY MOUTH EVERY DAY AT BEDTIME 10/05 completed Not Available Not Available Not Available nicotine 14 mg/24 hr daily transdermal patch APPLY 1 PATCH ON SKIN ONCE DAILY 11/05 completed Not Available Not Available Not Available ipratropium 0.5 mg-albutero l 3 mg (2.5 mg base)/3 mL nebulizatio n soln Inhale 3 mL 4 times a day by nebulizat ion route. 08/28 completed Not Available Not Available Not Available clindamycin HCl 300 mg capsule TAKE 1 CAPSULE BY MOUTH EVERY 8 HOURS 05/14 completed Not Available Not Available Not Available albuterol sulfate 2.5 mg/3 mL (0.083 %) solution for nebulizatio n USE 1 VIAL VIA NEBULIZER EVERY 6 HOURS NEEDED active Not Available Not Available No t Available trazodone 50 mg tablet TAKE 1 TABLET BY MOUTH EVERY NIGHT NEEDED FOR INSOMNIA 10/05 completed Not Available Not Available Not Available cetirizine 10 mg tablet TAKE 1 TABLET BY MOUTH EVERY DAY NEEDED active Not Available Not Available No t Available oxybutynin chloride ER 10 mg tablet,exte nded release 24 hr 10/05 completed Not Available Not Available Not Available azithromyci n 250 mg tablet TK 2 TS PO ON DAY 1, THEN TK 1 T PO D FOR 4 DAYS 10/05 completed Not Available Not Available Not Available pravastatin 40 mg tablet TAKE 1 TABLET BY MOUTH AT BEDTIME 05/14 completed Not Available Not Available Not Available alprazolam 1 mg tablet TAKE 1/2 (ONE-HALF ) TABLET BY MOUTH THREE TIMES DAILY FOR ANXIETY 10/05 completed Not Available Not Available Not Available nystatin 100,000 unit/gram topical ointment 08/28 completed Not Available Not Available Not Available fluconazole 150 mg tablet TAKE 1 TABLET BY MOUTH NOW. MAY REPEAT IN 7 DAYS 10/05 completed Not Available Not Available Not Available metoprolol succinate ER 50 mg tablet,exte nded release 24 hr TAKE 1 TABLET BY MOUTH EVERY DAY 05/14 completed Not Available Not Available Not Available ranitidine 300 mg tablet 12/25 completed Not Available Not Available Not Available hydrocodone 5 mg-acetamin ophen 325 mg tablet TAKE 1 TABLET BY MOUTH EVERY 6 HOURS NEEDED 10/05 completed Not Available Not Available Not Available sotalol 80 mg tablet TAKE 1 TABLET BY MOUTH EVERY 12 HOURS 10/05 completed Not Available Not Available Not Available prochlorper azine maleate 5 mg tablet 08/28 completed Not Available Not Available Not Available ondansetron HCl 8 mg tablet TAKE 1 TABLET BY MOUTH EVERY 8 HOURS NEEDED 10/05 completed Not Available Not Available Not Available meloxicam 15 mg tablet Take 1 tablet every day by oral route as needed. 11/22 completed Not Available Not Available Not Available ondansetron HCl 4 mg tablet TAKE 1 TABLET BY MOUTH 4 TIMES DAILY NEEDED FOR NAUSEA 10/05 completed Not Available Not Available Not Available famotidine 40 mg tablet TAKE 1 TABLET BY MOUTH EVERY DAY 10/05 completed Not Available Not Available Not Available prednisone 20 mg tablet TAKE 2 TABLETS BY MOUTH EVERY DAY FOR 5 DAYS 08/04 completed Not Available Not Available Not Available isosorbide mononitrate ER 30 mg tablet,exte nded release 24 hr 10/05 completed Not Available Not Available Not Available metoprolol succinate ER 100 mg tablet,exte nded release 24 hr Take 1 tablet every day by oral route for 90 days. 10/05 completed Not Available Not Available Not Available cromolyn 4 % eye drops INSTILL 1 DROP IN EACH EYE THREE TIMES DAILY active Not Available Not Available No t Available clobetasol 0.05 % topical cream APPLY A THIN LAYER TOPICALLY TO THE AFFECTED AREA TWICE DAILY active Not Available Not Available No t Available amlodipine 2.5 mg tablet 04/19 completed Not Available Not Available Not Available potassium chloride ER 10 mEq tablet,exte nded release TAKE 1 TABLET BY MOUTH EVERY DAY 2021 active Not Available Not Available Not Avai lable metronidazo le 500 mg tablet 12/25 completed Not Available Not Available Not Available clopidogrel 75 mg tablet TAKE 1 TABLET BY MOUTH EVERY DAY active Not Available Not Available No t Available amlodipine 5 mg tablet TAKE 1 TABLET BY MOUTH EVERY DAY active Not Available Not Available No t Available bacitracin zinc 500 unit/gram topical ointment APPLY TOPICALLY TO THE AFFECTED AREA THREE TIMES DAILY 11/05 completed Not Available Not Available Not Available ciprofloxac in 500 mg tablet Take 1 tablet every 12 hours by oral route. 08/28 completed Not Available Not Available Not Available sulfamethox azole 800 mg-trimetho prim 160 mg tablet TAKE 1 TABLET BY MOUTH TWICE DAILY FOR 7 DAYS 10/05 completed Not Available Not Available Not Available hydrocodone 10 mg-acetamin ophen 325 mg tablet TAKE 1 TABLET BY MOUTH TWICE DAILY NEEDED active Not Available Not Available No t Available omeprazole 40 mg capsule,del ayed release TAKE 1 CAPSULE BY MOUTH EVERY DAY 10/05 completed Not Available Not Available Not Available sotalol 120 mg tablet 2023 active Not Available Not Available Not Avai lable triamcinolo ne acetonide 0.1 % topical cream APPLY TOPICALLY TO THE AFFECTED AREA TWICE DAILY 11/05 completed Not Available Not Available Not Available ondansetron 8 mg disintegrat ing tablet DISSOLVE 1 TABLET ON THE TONGUE EVERY 8 HOURS NEEDED active Not Available Not Available No t Available baclofen 20 mg tablet 12/25 completed Not Available Not Available Not Available meloxicam 7.5 mg tablet 08/28 completed Not Available Not Available Not Available oxycodone-a cetaminophe n 5 mg-325 mg tablet 08/28 completed Not Available Not Available Not Available hydrocortis one 2.5 % topical cream with perineal applicator APPLY RECTALLY TO THE AFFECTED AREA DAILY NEEDED FOR HEMORRHOI DS active Not Available Not Available No t Available isosorbide mononitrate ER 60 mg tablet,exte nded release 24 hr 11/05 completed Not Available Not Available Not Available alprazolam 0.5 mg tablet TAKE 1 TABLET BY MOUTH 3 TIMES A DAY NEEDED FOR ANXIETY 10/05 completed Not Available Not Available Not Available amoxicillin 875 mg tablet TAKE 1 TABLET BY MOUTH EVERY 12 HOURS FOR 7 DAYS 10/05 completed Not Available Not Available Not Available potassium chloride ER 20 mEq tablet,exte nded release(par t/cryst) Take 1 tablet every day by oral route. 06/17 completed Not Available Not Available Not Available famotidine 20 mg tablet 08/28 completed Not Available Not Available Not Available lorazepam 0.5 mg tablet TAKE 1 TABLET BY MOUTH THREE TIMES DAILY NEEDED FOR ANXIETY active Not Available Not Available No t Available metoclopram alejandra 5 mg tablet 12/25 completed Not Available Not Available Not Available dicyclomine 20 mg tablet TAKE 1 TABLET BY MOUTH FOUR TIMES DAILY NEEDED 11/05 completed Not Available Not Available Not Available ciprofloxac in 0.3 % eye drops INSTILL 4 DROPS TO LEFT EAR TWICE DAILY FOR 7 DAYS 10/05 completed Not Available Not Available Not Available [employer] Ultra Test strips TEST 1 TIME DAILY active Not Available Not Available No t Available lorazepam 2 mg tablet TAKE 1 TABLET BY MOUTH TWICE DAILY AND 1/2 TABLET AT BEDTIME FOR 90 DAYS 10/05 completed Not Available Not Available Not Available doxycycline monohydrate 100 mg capsule TAKE 1 CAPSULE BY MOUTH TWICE DAILY FOR 10 DAYS 08/04 completed Not Available Not Available Not Available cephalexin 500 mg capsule TAKE 1 CAPSULE BY MOUTH EVERY 12 HOURS 10/05 completed Not Available Not Available Not Available pantoprazol e 40 mg tablet,papito yed release TAKE 1 TABLET BY MOUTH DAILY 10/05 completed Not Available Not Available Not Available hyoscyamine sulfate 0.125 mg tablet TAKE 1 TABLET BY MOUTH EVERY 4 HOURS NEEDED FOR SPASMS active Not Available Not Available No t Available isosorbide dinitrate 20 mg tablet Take 1 tablet every day by oral route. 04/19 completed Not Available Not Available Not Available fluoxetine 20 mg tablet TAKE 3 TABLETS BY MOUTH EVERY DAY FOR MAJOR DEPRESSIO N OR PANIC DISORDER 11/05 completed Not Available Not Available Not Available neomycin-po lymyxin-dex ameth 3.5 mg/mL-10,00 0 unit/mL-0.1 % eye drops INSTILL 1 DROP INTO AFFECTED EYE(S) EVERY 3 TO 4 HOURS WHILE AWAKE 08/04 completed Not Available Not Available Not Available nystatin 100,000 unit/gram topical cream APPLY TO THE AFFECTED AREA EVERY MORNING AND EVERY EVENING 05/14 completed Not Available Not Available Not Available ranitidine 150 mg tablet Take 1 tablet every day by oral route. 12/25 completed Not Available Not Available Not Available prednisone 50 mg tablet TAKE 1 TABLET BY MOUTH DAILY 07/09 completed Not Available Not Available Not Available promethazin e 25 mg tablet TAKE 1 TABLET BY MOUTH FOUR TIMES DAILY NEEDED 10/05 completed Not Available Not Available Not Available nicotine 21 mg/24 hr daily transdermal patch APPLY 1 PATCH THE SKIN ONCE DAILY active Not Available Not Available No t Available nitroglycer in 0.[address] 1 tablet by sublingua l route as needed. active Not Available Not Available No t Available montelukast 10 mg tablet TAKE 1 TABLET BY MOUTH DAILY active Not Available Not Available No t Available mirtazapine 15 mg tablet TAKE 1/2 TABLET BY MOUTH AT BEDTIME 10/05 completed Not Available Not Available Not Available metoprolol succinate ER 25 mg tablet,exte nded release 24 hr Take 1 tablet every day by oral route. 04/19 completed Not Available Not Available Not Available ergocalcife rol (vitamin D2) 1,250 mcg (50,000 unit) capsule TAKE 1 CAPSULE BY MOUTH 1 TIME A WEEK active Not Available Not Available No t Available epinephrine 0.3 mg/0.3 mL injection, auto-inject or Take 1 auto by injection route as needed. 11/05 completed Not Available Not Available Not Available ibuprofen 600 mg tablet TAKE 1 TABLET BY MOUTH THREE TIMES DAILY active Not Available Not Available No t Available polyethylen e glycol 3350 17 gram/dose oral powder DISSOLVE 17 GRAMS IN LIQUID AND TAKE BY MOUTH ONCE DAILY 10/05 completed Not Available Not Available Not Available levofloxaci n 500 mg tablet TAKE 1 TABLET BY MOUTH ONCE DAILY FOR 7 DAYS 08/04 completed Not Available Not Available Not Available methylpredn isolone 4 mg tablets in a dose pack FOLLOW PACKAGE DIRECTION S 11/05 completed Not Available Not Available Not Available albuterol sulfate HFA 90 mcg/actuati on aerosol inhaler INHALE 2 PUFFS BY MOUTH EVERY 4 HOURS active Not Available Not Available No t Available oxybutynin chloride 5 mg tablet TAKE 1 TABLET BY MOUTH THREE TIMES DAILY 10/05 completed Not Available Not Available Not Available ondansetron 4 mg disintegrat ing tablet 11/22 completed Not Available Not Available Not Available cefdinir 300 mg capsule TAKE 1 CAPSULE BY MOUTH EVERY 12 HOURS FOR 10 DAYS 08/04 completed Not Available Not Available Not Available losartan 100 mg tablet TAKE 1 TABLET BY MOUTH EVERY DAY active Not Available Not Available No t Available fluoxetine 20 mg capsule TAKE 1 CAPSULE BY MOUTH DAILY 10/05 completed Not Available Not Available Not Available fluticasone propionate 50 mcg/actuati on nasal spray,suspe nsion SPRAY 2 SPRAYS IN EACH NOSTRIL EVERY DAY active Not Available Not Available No t Available dicyclomine 10 mg capsule 12/25 completed Not Available Not Available Not Available metoclopram alejandra 10 mg tablet TAKE 1 TABLET BY MOUTH TWICE DAILY NEEDED FOR NAUSEA OR VOMITING active Not Available Not Available No t Available amoxicillin 875 mg-potassiu m clavulanate 125 mg tablet TAKE 1 TABLET BY MOUTH EVERY 12 HOURS 10/05 completed Not Available Not Available Not Available nicotine 7 mg/24 hr daily transdermal patch UNWRAP AND APPLY 1 PATCH TO SKIN ONCE DAILY active Not Available Not Available No t Available oxycodone 5 mg tablet TAKE 1 TABLET BY MOUTH EVERY 6 HOURS NEEDED FOR PAIN 10/05 completed Not Available Not Available Not Available neomycin-po lymyxin-hyd rocort 3.5 mg-10,000 unit/mL-1 % ear drops,susp SHAKE LIQUID AND INSTILL 4 DROPS TO AFFECTED EAR THREE TIMES DAILY 08/04 completed Not Available Not Available Not Available ezetimibe 10 mg tablet TAKE 1 TABLET BY MOUTH EVERY DAY active Not Available Not Available No t Available nicotine (polacrilex ) 4 mg buccal lozenge Take 1 tablet every 2 hours by oral route. 12/25 completed Not Available Not Available Not Available nicotine (polacrilex ) 2 mg buccal lozenge USE 1 LOZENGE BY MOUTH NEEDED NO MORE THAN EVERY 2 HOURS 10/05 completed Not Available Not Available Not Available ciprofloxac in 0.3 %-dexametha sone 0.1 % ear drops,suspe nsion INSTILL 4 DROPS INTO AFFECTED EAR(S) BY OTIC ROUTE 2 TIMES PER DAY FOR 7 DAYS 10/05 completed Not Available Not Available Not Available rosuvastati n 10 mg tablet TK 1 T PO QD 11/22 completed Not Available Not Available Not Available rosuvastati n 20 mg tablet TAKE 1 TABLET BY MOUTH EVERY DAY AT BEDTIME active Not Available Not Available No t Available Spiriva with HandiHaler 18 mcg and inhalation capsules INHALE 1 PUFF BY MOUTH ONCE DAILY 10/05 completed Not Available Not Available Not Available mirtazapine 7.5 mg tablet TAKE 1 TABLET BY MOUTH AT BEDTIME 10/05 completed Not Available Not Available Not Available nitrofurant oin monohydrate /macrocryst als 100 mg capsule TAKE 1 CAPSULE BY MOUTH EVERY 12 HOURS FOR 5 DAYS 10/05 completed Not Available Not Available Not Available Plavix 75 mg daily 11/05 completed Not Available Not Available Not Available Symbicort 160 mcg-4.5 mcg/actuati on HFA aerosol inhaler INHALE 2 PUFFS BY MOUTH TWICE DAILY active Not Available Not Available No t Available fenofibrate 120 mg tablet TAKE 1 TABLET BY MOUTH EVERY DAY active Not Available Not Available No t Available Vitamin D 2,000 unit capsule Take 1 capsule every week by oral route. 11/05 completed Not Available Not Available Not Available dexlansopra zole 30 mg capsule,bip hase delayed release TAKE 1 CAPSULE BY MOUTH DAILY active Not Available Not Available No t Available Dificid 200 mg tablet TAKE 1 TABLET BY MOUTH EVERY 12 HOURS FOR 10 DAYS 10/05 completed Not Available Not Available Not Available fluoxetine 60 mg tablet TAKE 1 TABLET BY MOUTH EVERY DAY FOR MAJOR DEPRESSIV E DISORDER 10/05 completed Not Available Not Available Not Available Xarelto 20 mg tablet TAKE 1 TABLET BY MOUTH DAILY AT 5 PM 10/05 completed Not Available Not Available Not Available Chantix Starting Month Box 0.5 mg (11)-1 mg (42) tablets in dose pack FOLLOW PACKAGE DIRECTION S DIRECTED 11/05 completed Not Available Not Available Not Available Eliquis 5 mg tablet TAKE 1 TABLET BY MOUTH EVERY 12 HOURS active Not Available Not Available No t Available Safety Lancets 28 gauge TEST 1 TIME DAILY active Not Available Not Available No t Available Repatha SureClick 140 mg/mL subcutaneou s pen injector INJECT 1 PEN UNDER THE SKIN EVERY 14 DAYS active Not Available Not Available No t Available Repatha Pushtronex 05/14 completed Not Available Not Available Not Available fluticasone 113 mcg-salmete rol 14 mcg/actuati on breath activated powdr 12/25 completed Not Available Not Available Not Available OneTouch Ultra2 Meter USE DIRECTED active Not Available Not Available No t Available OneTouch Delica Plus Lancet 33 gauge USE 1 TO CHECK GLUCOSE ONCE DAILY active Not Available Not Available No t Available Vitals Date Recorded Body height Body mass index (BMI) Body weight Oxygen saturation Oxygen saturation in Arterial blood by Pulse oximetry Heart rate Systolic blood pressure Diastolic blood pressure Provider Name and Address Organization Details Last Updated DateTime 4 160.02 cm 32.3 kg/m2 85197.6 1 g 95 % 95 % 61 /min 122 mm[Hg] 72 mm[Hg] Ambar Dee [place] [facility] 4 09:53:26 Social History Question Answer Notes LastModified by Organizat ion Details LastModified Time Tobacco Smoking Status Current Every Day Smoker Trying to stop being using NiControl inhaler-hasn 't smoked in 3 wks. JOEY Conti, [place] [facility] 10/16/2021 16:32:37 Do You Have An Advance Directive? No Information not available 12/25/2019 What Is Your Level Of Alcohol Consumption? None Once A Year, If So. [email or web address] Information not available 07/09/2021 Are You Blind Or Do You Have Difficulty Seeing? No Information not available 02/20/2021 What Is Your Level Of Caffeine Consumption? Moderate Information not available 12/25/2019 How Much Tobacco Do You Chew? None Information not available 12/25/2019 In The 14 Days Before Symptom Onset, Have You Had Close Contact With A Laboratory-confi rmed COVID-19 While That Case Was Ill? No Information not available 12/15/2021 In The 14 Days Before Symptom Onset, Have You Had Close Contact With A Person Who Is Under Investigation For COVID-19 While That Person Was Ill? No Information not available 12/15/2021 Have You Been To An Area Known To Be High Risk For COVID-19? No Information not available 12/15/2021 Are You Currently Employed? No Information not available 11/22/2020 Are You Deaf Or Do You Have Serious Difficulty Hearing? No Information not available 02/20/2021 What Type Of Diet Are You Following? REGULAR Information not available 12/25/2019 Which Illicit Or Recreational Drugs Have You Used? None Information not available 12/25/2019 Do You Or Have You Ever Used E-cigarettes Or Vape? Never Used Electronic Cigarettes Information not available 08/02/2019 Education 12 Information no t available 11/22/2020 What Is Your Occupation? Unemployed Information not available 11/22/2020 Hard Of Hearing Or Deaf In One Or Both Ears? Yes Hard Of Hearing Information not available 11/22/2020 Legally Blind In One Or Both Eyes? No Information not available 11/22/2020 Live Alone Or With Others? Alone Information not available 12/25/2019 Do You Have A High School Diploma Or Higher Education? Yes Information not available 12/15/2021 Do You Sometimes Have To Miss Your Medical Appointments Due To Difficult Getting Transportation? No Information not available 12/15/2021 Do You Feel Unfairly Treated Due To Things Such As Race, Age, Gender, Disability Or Some Other Reason? No Information not available 12/15/2021 Do You Feel Physically And Emotionally Safe While Living At Home? Yes Information not available 12/15/2021 Do You Feel Physically And Emotionally Safe In Your Neighborhood Or Other Public Places? Yes Information not available 12/15/2021 What Was The Date Of Your Most Recent Tobacco Screening? 10/05/2024 Information not available 10/05/2024 How Many Children Do You Have? 2 Information not available 11/22/2020 Do You Have Smoke And Carbon Monoxide Detectors In Your Home? Yes Information not available 02/20/2021 At What Age Did You Start Smoking Tobacco? 18 Information not available 12/25/2019 Are You Passively Exposed To Smoke? Yes Information not available 12/25/2019 Do You Or Have You Ever Used Smokeless Tobacco? Never Used Smokeless Tobacco Information not available 08/02/2019 How Much Tobacco Do You Smoke? 1 PPD Information not available 10/05/2024 General Stress Level High Information not available 11/22/2020 Do You Use Any Illicit Or Recreational Drugs? No [email or web address] Information not available 10/16/2021 On What Date Was Tobacco Cessation Counseling Provided? 10/05/2024 Information not available 10/05/2024 How Many Years Have You Smoked Tobacco? 41 Information not available 11/22/2020 Do You Or Have You Ever Used Any Other Forms Of Tobacco Or Nicotine? No Information not available 02/20/2021 Sex: Unknown Functional Status Question Answer Note LastModified by Organization D etails LastModified Time Are you able to care for yourself? Yes Information n ot available 12/25/2019 What is your exercise level? None Information not available 12/25/2019 Mental Status None recorded. Family History Relationship Description Onset Age of this Age Resolved Age Notes LastModified by Organization Details LastModified Time Mother Ulcer [email or web address] Not available 08/02/2019 14:53:59 Father Family history of malignant neoplasm Lung [email or web address] Not available 08/02 14:54:12 Paternal Uncle Diabetes mellitus [email or web address] Not available 08/02 14:54:27 Sister Family history of malignant neoplasm Bladde r sdevriesma Not available 08/02/2019 14:54:47 Sister Dementia [email or web address] Not available 09/25/2021 16:34:09 Sister Family history of cancer of colon mmosleyma Not available 2023 09:41:20 Sister Depressive disorder [email or web address] Not available 2023 09:41:33 Sister Disorder of thyroid gland [email or web address] Not available 2023 09:41:42 Sister Hypertensive disorder [email or web address] Not available 2023 09:41:48 Sister Osteoporosis [email or web address] Not avai lable 10/05/2024 09:41:56 Brother Depressive disorder [email or web address] Not available 2023 09:41:33 Brother Osteoporosis [email or web address] Not kalen ilable 10/05/2024 09:41:56 Medical History Condition Response Coronary Artery Disease N Other N Atrial Fibrillation N High Blood Pressure Y Depression Y COPD Y Blood Clots N Anxiety Disorder Y Muscle, Joint, or Bone Problems Y Acid Reflux (GERD) Y Cancer Y Stroke Y ADHD N High Cholesterol Y Liver Disease N Schizophrenia N Headaches N Kidney or Bladder Problems N Thyroid Problems N GI Problems N Eating Disorder N Skin Problems N Anemia N Heart Attack ([place]) N Diabetes Y Seizures/Epilepsy N Asthma Y Allergies Y Substance Abuse N Hepatitis N Osteoporosis Y Heart Failure N Gynecological HistoryNo gynecological history recorded. Obstetrics History GPAL:G 0 P 0 0 0 0 Immunizations Vaccine Type Date Status Note Provider Nam e and Address Organization Details Recorded Time COVID-19, mRNA, LNP-S, PF, 30 mcg/0.3 mL dose 1 completed JOEY [place], [place] - [facility] 05/01/2021 10:04:30 COVID-19, mRNA, LNP-S, PF, 30 mcg/0.3 mL dose 1 completed JOEY [place] [facility] 05/01/2021 10:05:05 Influenza, split virus, quadrivalent, PF 9 completed Not Available [facility] 12/02/2019 02:38:45 Influenza, split virus, quadrivalent, preservative 0 completed JOEY [place], [place] - [facility] 08/28/2020 11:13:06 Past Encounters Encounter ID Performer Location Encounter Start Date Encounter Closed Date Diagnosis/Indication Diagnosis SNOMED-CT Code Diagnosis ICD10 Code [id number] Matti Balderas MD [facility] [address] [address] 10/05/2024 09:37:24 10/06/2024 14:35:39 Chronic obstructive pulmonary disease 21153275 J44.9 Diabetes mellitus 348834 09 E11.9 Essential hypertension 02790335 I10 Malignant neoplasm of urinary bladder 141336977 C67.9 Atheroscle rosis of coronary artery without angina pectoris 0216683056 61198 I25.10 Hypercholesterolemia 136 42975 E78.00 Smoker 15890914 F17.200 Osteoarthritis 125775121 M19.90 Health Concerns Section Related Observation LastModified by Organization Detai ls LastModified Time None Recorded Concern Status LastModified by Organization Details LastModified Time None Recorded Payers Encounter Date Sequence Insurance Name Policy Number Policy Larsen Covered Member ID Larsen Member ID Guarantor Name 10/05/2024 1 [facility] ON OR AFTER 7/1/21 (MEDICAID REPLACEMENT - HMO) Rody Dyan [id number] Rody Zaidi Notes Date Note Type Note Provider Name and Address Organization Details Recorded Time 10/05/2024 text/html presents to the office for initial evaluation has bladder cancer and is being treated by urology has copd and dm the htn is under control is a smoker the gerd is under control has afib and sees dr aguilar elevated chol Matti Balderas MD Attn: Accounting,[address] [place], [address], [facility] 10/05/2024 17:20:45 OBGyn Episode No OBEpisode recorded.
--- OUTSIDE RECORDS SUMMARY | 2024-11-12 05:22 | XMS_ITS | Referral Summary ---
Author Organization [facility] [employer] Address [address] [place] [address] Care Team Providers Care Oversize Load Pilot Escort Name Role Phone Matti Balderas MD Primary Care Provider [phone] Source Comments [facility],non-owned Affiliates and Associated Physician Practices is amultiple site organization consisting of ambulatory clinics and hospital sitesin [place], [place], [place] and [place]. This disclosure is being madepursuant to the Care Everywhere program and may not contain all information available regarding this patient. Last updated 18.[facility] [employer] Encounters Date Type Department Care Team Description 10/27/2024 Travel 10/27/2024 1:30 PM AUTO BRAKE MECHANIC Procedure visit [facility] - Urology [address] [place] [address] Rd [address] [place] [address] Jose Oliver MD Malignant neoplasm of urinary bladder, unspecified site (HCC) 09/19/2024 Travel 09/15/2024 Travel 09/15/2024 11:30 AM CDT Clinical Support [facility] - Urology [address] [place] [address] Jose Oliver MD Malignant neoplasm of urinary bladder, unspecified site (HCC) 09/13/2024 Travel 09/13/2024 Telephone [facility] - Centralized Scheduling [address] [place] [id number] Jose Oliver MD Med Question; Appointment 09/11/2024 Travel 09/08/2024 Orders Only [facility] Physician [facility] - Urology [address] [place] [address] [address] [place] [address] Melissa Rolon APRN-SONNY 09/08/2024 Travel 09/08/2024 10:30 AM CDT Clinical Support [facility] Physician [facility] - Urology [address] [place] [address] [address] [place] [address] Melissa Rolon, MEI-MEDICAL INSTRUCTOR Asymptomatic microscopic hematuria 09/01/2024 Travel 09/01/2024 11:00 AM CDT Clinical Support [facility] Physician [facility] - Urology [address] [place] [address] [address] [place] [address] Jose Oliver MD Malignant neoplasm of urinary bladder, unspecified site (HCC) ; Bladder spasms; Urinary frequency 08/25/2024 Travel 08/25/2024 11:00 AM CDT Clinical Support [facility] Physician [facility] - Urology [address] [place] [address] [address] [place] [address] Jose Oliver MD Malignant neoplasm of urinary bladder, unspecified site (HCC) 08/18/2024 Travel 08/18/2024 11:00 AM CDT Clinical Support [facility] Physician [facility] - Urology [address] [place] [address] [address] [place] [address] Jose Oliver MD Malignant neoplasm of urinary [...] meal 12/27/2016 Active vitamin D, ergocalciferol, (DRISDOL) 45240 UNITS capsule Take 1 (one) capsule by [...] tage 2 moderate COPD by GOLD classification ([facility]) Inhale 2 (two) puffs by mouth [...] DD (recurrent major depressive disorder) in remission ([facility]) Inhale 10 mg by mouth as needed [...] Problem Noted Date Diagnosed Date CAD in [place] artery 10/24/2020 MDD (recurrent major depressive disorder) [...] Blood Pressure 84/54 10/27/2024 2:11 PM AUTO BRAKE MECHANIC Pulse 78 10/27/2024 2:11 PM AUTO BRAKE MECHANIC Temperature 36.2 ??C (97.2 ??F) 10/27/2024 2:11 PM CS T Respiratory Rate 18 10/27/2024 2:11 PM AUTO BRAKE MECHANIC Oxygen Saturation 96% 10/27/2024 2:11 PM AUTO BRAKE MECHANIC Inhaled Oxygen Concentration 21% 06/21/2024 8 :20 AM CDT Weight 83.9 kg (185 lb) 09/19/2024 9:51 AM AUTO BRAKE MECHANIC Height 160 cm (5' 3 ) 10/27/2024 2:11 PM AUTO BRAKE MECHANIC Body Mass Index 32.77 09/15/2024 11:54 AM [...] Contact Info) Description 01/19/2025 11:30 AM AUTO BRAKE MECHANIC Procedure visit [facility] - Urology [address] [place] [address] [address] [place] [address] Jose Oliver MD [address] [place] [address] Goals Goal Patient Goal Type Associated Problems [...] last dose Medical Devices Implanted Type Area Heating Element Repairer Device Identifier Shelf Expiration Date Model / Serial / Lot Stent Trchbr 10mm 7fr 38mm 80cm Cvr Cath Implanted:Qty: 1 on 09/04/2020 by Jose A Clark MD at [facility] N/A: Abdomen [employer] 04/05/2023 [id number] / / [id number] Stent Trchbr 8mm 7fr 38mm 80cm Cvr Cath Implanted:Qty: 1 on 09/04/2020 by Jose A Clark MD at [facility] N/A: Abdomen [employer] 05/22/2023 [id number] / / [id number] Procedures Procedure Name Priority Date/Time Associated Diagnosis Comments URINALYSIS AUTO - POINT OF CARE (AMB) [facility] Routine 10/27/2024 2:13 PM AUTO BRAKE MECHANIC Malignant neoplasm of urinary bladder, unspecified [...] CDT HEMOGLOBIN A1C Routine 11/22/2023 10:36 AM AUTO BRAKE MECHANIC Pre-op exam from Last 3 Months or Most Recently Relevant to Health Maintenance Results * URINALYSIS AUTO - POINT OF CARE (AMB) [facility] (10/27/2024 2:13 PM AUTO BRAKE MECHANIC) Only the most recent of5 resultswithin the time period is included. Glucose UA neg [facility] [address] Bilirubin UA POCT neg [facility] [address] Ketones UA POCT neg [facility] [address] Specific [place] UA 1.[address] [facility] [address] Blood [...] / Unknown 10/27/2024 2 :13 PM AUTO BRAKE MECHANIC Jose Oliver MD LAB - POINT OF CAR E ORDERABLES [facility] [address] [place] [address], [facility] [phone] * CULTURE URINE (09/08/2024) Pathologist [facility] Culture [facility] Comment: ??CULTURE, URINE, ROUTINE ?Micro Number: ?[id number] ??Test Status: ? Final ??Specimen Source: ?? Urine ??Specimen Quality: ??Adequate ??Result: ?Mixed genital unruly isolated. These superficial ? bacteria are not indicative of a urinary tract ? infection. No further organism identification is ? warranted on this specimen. If clinically ? indicated, recollect clean-catch, mid-stream ? urine and transfer immediately to Urine Culture ? Transport Tube. Test Performed at: [employer] ??[id number] GISELE JUSTICE MD 09/08/2024 09/09/2024 1:3 2 AM CDT Melissadebbie Rolon MANAGEMENT TRAINEE PROGRAM STORES-MEDICAL INSTRUCTOR LAB - MICROBIOL OGY ORDERABLES [facility] [address] [place] [address] * BASIC METABOLIC PANEL (CALCIUM TOTAL) (06/28/2024 3:17 PM CDT) BUN 15 7 - 26 mg/dL 06/28/2024 3:51 PM [facility] Creatinine 0.69 0.56 - 0.96 mg/dL 06/28/2024 3:51 PM [facility] Sodium 138 136 - 145 mmol/L 06/28/2024 3:51 PM [facility] Potassium 4.0 3.5 - 4.5 mmol/L 06/28/2024 3:51 PM [facility] Chloride 103 98 - 107 mmol/L 06/28/2024 3:51 PM [facility] CO2 26 22 - 29 mmol/L 06/28/2024 3:51 PM [facility] Glucose 102 70 - 115 mg/dL 06/28/2024 3:51 PM [facility] Calcium 9.4 8.4 - 10.2 mg/dL 06/28/2024 3:51 PM [facility] Anion Gap 9 6 - 16 06/28/2024 3:51 PM [facility] BUN/Creatinine Ratio 22 7 - 23 06/28/2024 3:51 PM [facility] Osmolality Calculated 287 275 - 295 mOsm/kg 06/28/2024 3:51 PM [facility] eGFR by CKD-EPI >90 >=90 mL/min/1.7 3 m2 06/28/2024 3:51 PM [facility] Blood BLOOD SPECIMEN / Unknown Venipuncture / Unknown 06/28/2024 3:17 PM CDT 06/28/2024 3:26 PM CDT Martir Choi MD LAB - CHEMISTRY BASSAM CONTRERAS [facility] [address] [place] [address], [facility] [phone] * (ABNORMAL) HEMOGLOBIN A1C [IN-HOUSE TEST] (11/22/2023 10:36 AM AUTO BRAKE MECHANIC) Hemoglobin A1c 6.4(H) <=5.6 % 11/22/2023 12:05 PM [facility] Estimated Average Glucose 137 mg/dL 11/22/2023 12:05 PM [facility] Comment: HbA1c Interpretation: Normal : < 5.7% Pre-diabetes: 5.7-6.4% Diabetes: Equal to or greater than 6.5% Test results diagnostic of diabetes should be repeated for confirmation. Treatment target values recommended by ADA and other clinical organizations should be used to evaluate metabolic control in patients. Reference: [place] [employer], Standards of Care in Diabetes -2020 In patients 70 years and older consider HbA1c target range of 7.0-7.5% (Reference: Montez Rosas et al. JAMDA. 2012) The Sebia assay for the measurement of HbA1c is a National Glycohemoglobin Standardization Program (NGSP) certified method. Blood BLOOD SPECIMEN WITH EDTA / Unknown Lab Venipuncture / Unknown 11/22/2023 10:36 AM AUTO BRAKE MECHANIC 11/22/2023 10:42 AM AUTO BRAKE MECHANIC Jasmin Moore MANAGEMENT TRAINEE PROGRAM STORES-MEDICAL INSTRUCTOR LAB - CHEMISTRY ORDERABLES [facility] [address] [place] [address], [facility] [phone] from Last 3 Months or Most Recently Relevant to Health Maintenance Advance Directives * Full Code (Latest Code Status on File) Date Activated Date Inactivated Comments 10/24/2020 10:10 AM 10/24/2020 6:00 PM Care Teams Oversize Load Pilot Escort Relationship Specialty Start Date End Date Matti Balderas MD [address] [facility] [facility] [address] [facility] [address] [place] [address] PCP - General Family Medicine 10/27/24
--- OUTSIDE RECORDS SUMMARY | 2024-11-12 05:22 | XMS_ITS | Data Portability ---
[facility] Organization [facility] Address [address] [place] [address] Care Team Providers Care Senior Policy Analyst Name Role Phone LIAT HEAD Primary Care Provider Assessment No assessment recorded. Plan of Treatment Reminders Order Date Submit Date Provider Last Modified By Organization Details Last Modified Time Details Appointments ANY 15 2024 09:30A Dilcia Balderas MD Not available Not available Not available Lab SARS CoV 2 RNA (COVID-19 ), QL, glove turner and former automatic-PCR, respirato ry specimen 2020 [facility] Covid 19 Testing, [address], [place], [address], 10/20/2021 10:56:55 Referral otolaryng ologist referral 2020 021 [facility], [address] , [place], [address], 09/15/2021 15:19:06 registere d dietitian referral [address] [facility], [address], [place], [address], 12/05/2021 15:47:[address] referral 2020 021 [facility] (Audiology), [address], [place], [address], 09/26/2021 12:55:12 hearing screening referral 2020 [facility] (Audiology), [address], [place], [address], 09/25/2021 17:01:30 pain managemen t referral 2023 OLIVER Hendricks, [address], [place], [address], 10/24/2024 15:10:37 Procedures None recorded. Surgeries None recorded. Imaging MAMMO, screening , bilateral 2020 [facility], [address], [place], [address], 10/23/2021 09:09:03 Medication Orders clopidogr el 75 mg tablet 2020 [facility] #87968, [address] [facility], [place], [place], [id number], 09/15/2021 12:20:08 hydrocodo ne 10 mg-acetam inophen 325 mg tablet 2020 [facility] #15460, [address] [facility], [place], [place], [id number], 11/05/2021 13:01:01 metoprolo l succinate ER 100 mg tablet,ex tended release 24 hr 2020 [facility] #58331, [address] [facility], [place], [place], [id number], 10/05/2024 09:49:18 losartan 100 mg tablet 2020 [facility] #12813, [address] [facility], [place], [place], [id number], 09/15/2021 12:20:13 doxycycli ne monohydra te 100 mg capsule 2020 [facility] #32562, [address], [place], [place], [id number], 08/04/2022 12:31:15 prednison e 20 mg tablet 2020 021 [facility] #95592, [address], [place], [place], [id number], 08/04/2022 12:30:57 Ciprodex 0.3 %-0.1 % ear drops,kayla pension 2021 022 [facility], [address] [place], [address], 10/05/2024 09:47:02 doxycycli ne hyclate 100 mg capsule 2021 022 [facility], [address] [place], [address], 10/05/2024 09:47:27 hydrocodo ne 10 mg-acetam inophen 325 mg tablet 2023 024 [facility] #40615, [address] , [place], [place], [id number], 10/05/2024 17:20:51 Patient TargetsNo targets recorded. Patient Instructions Encounter Date Encounter Id Patient Instructions Last Modified By Organization Details Last Modified Time 09/15/2021 [id number] Peripheral Arterial Disease (PAD): Care Instructions Not available 09/15/2021 12:20:01 osteoarthritis: care instructions Not available 09/15/2021 12:20:00 mammogram: about this test Not available 09/15/2021 12:29:16 chronic obstructive pulmonary disease (COPD): care instructions Not available 09/15/2021 12:20:00 learning about copd and how to prevent lung infections Not available 09/15/2021 12:20:01 high cholesterol : care instructions Not available 09/15/2021 12:20:00 When You Want to Lose Weight: Care Instructions Not available 09/15/2021 12:20:00 learning about high blood pressure Not available 09/15/2021 12:20:01 10/05/2024 [id number] Quitting Tobacco : Care Instructions [email or web address] Not available 10/05/2024 11:33:15 Reason for Referral Registered Dietitian Referra saeed for Obesity Referring Physician: Jasson Dawn [facility], Encounter Date: 09/15/2021 Residential Caregiver Referral fo r Chronic otitis media Referring Physician: Jasson Dawn [facility], Encounter Date: 09/15/2021 Customer Acquisition Specialist Referral for Ra ateral hearing loss Referring Physician: Ann Slaughter [facility], Encounter Date: 09/25/2021 Hearing Screening Referral f or Bilateral hearing loss Referring Physician: Ann Slaughter [facility], Encounter Date: 09/25/2021 Pain Management Referral for Osteoarthritis Referring Physician: Matti Balderas [facility], Encounter Date: 10/05/2024 Results Created Date Observation Date Name Description Value Unit Range Abnormal Flag Note LastModifiedBy Organization Detail LastModifiedTime 10/23/20 21 10/22/2021 MAMMO , scree derrell, bilat eral No observ ation record ed. [place] [address], [address], 10/23/2021 15:22:23 10/31/20 21 10/31/2021 XR, chest No observ ation record ed. [facility] [address], [address], 10/31/2021 14:31:31 Result Notes None recorded. Problems Name Problem SNOMED Code Status Onset Date Resolution Date Notes Provider Name and Address Organization Details Recorded Time Diabetes mellitus 87300813 Active 2018 Linda Hansen MA [facility], [place] - [facility] 9 14:43:31 Diverticul itis 820241310 Active 2018 Dr. Audrey Hansen [place] null, [place] - [facility] 9 14:55:42 Chronic obstructiv e pulmonary disease 60457716 Active 2018 Linda Hansen [place], [place] [facility] 9 14:57:53 Asthma 807159444 Active 2018 Linda Hansen [place] [facility] 9 14:57:58 Peripheral vascular disease 332957279 Active 2018 Linda Hansen [place] [facility] 9 14:58:06 Tick bite 71962122 Active 2020May 18, 2021 Hollis Dash PA-C Attn: Tiffanie fontaine,[address] [place], [address], [place] [facility] 1 10:21:42 Essential hypertensi on 08524454 Active 2020 Hollis Dash PA-C Attn: Tiffanie fontaine,[address] [place], [address], [place] [facility] 1 10:23:35 Lumbago with sciatica 916235025 Active 2020 Hollis Dash PA-C Attn: Tiffanie g,[address] [place], [address], [place] [facility] 1 10:24:47 Tobacco dependence syndrome 10286650 Active 2020 JOSE PARDO Attn: Accountzhane g,[address] [place], [address], [place] [facility] 1 09:41:09 Smoker 46011562 Active 2023 Matti Balderas MD Attn: Tiffanie g,[address] [place], [address], [place] [facility] 4 10:19:16 Hyperchole sterolemia 13039284 Active 2023 Matti Balderas MD Attn: Tiffanie fontaine,[address] [place], [address], [place] [facility] 4 10:19:16 Atheroscle rosis of coronary artery without angina pectoris 6514315287085 03 Active 2023 Matti Balderas MD Attn: Accountin g,[address] [facility], [place], [address], [place] [facility] 4 10:19:17 Malignant neoplasm of urinary bladder 194875945 Active 2023 Matti Balderas MD Attn: Accountin g,[address] [facility], [place], [address], [place] [facility] 4 10:19:18 Problem Notes None recorded. Procedures Surgical History Date Name Laterality Status Provider Name and Address Organization Details Recorded Time 2018 esophagogastroduodenoscopy completed Jourdan Hansen MA [facility] 9 14:55:25 2018 colonoscopy completed Linda Hansen MA [facility] 9 14:55:16 cataract surgery completed Linda Hansen MA [facility] 0 11:39:24 Imaging Results Imaging Date Name Status LastModified by Organiz ation Details LastModified Time 10/22/2021 MAMMO, screening, bilateral completed [address], [address], 10/23/2021 15:22:23 10/31/2021 XR, chest completed [address], [address], 10/31/2021 14:31:31 Procedure Notes None recorded. Medical Equipment None Reported. Allergies Allergen ID Allergen Name Allergen Category Reaction Reaction Severity Criticality Documentation Date Start Date Code Code System Note Provider Name and Address Organization Details Recorded Time 582289 Medicinal product containin g penicilli n and acting as antibacte rial agent (product) medicatio n Not available Not available Not available 08/02/2019 30190 05 SNOMED repea ts words and face turns red? JOSE BLANCO Attn: Accountin g,[address] [facility], [place], [address], [facility] 1 12:08:04 144330 haloperid ol medicatio n Not available Not available Not available 08/02/2019 5093 RxNorm LindaJOEY Grigsby, [place] - [facility] 9 14:45:30 100393 triazolam medicatio n Not available Not available Not available 08/02/2019 89966 RxNorm Linda Hansen MA null, [place] - [facility] 9 14:45:38 372795 azithromy lorena medicatio n Not available Not available Not available 11/17/2019 18629 RxNorm pain in stoma ch for hours JOSE BLANCO Attn: Accountin g,[address] [facility], [place], [address], [facility] 1 12:07:32 289978 Risperdal medicatio n Not available Not available Not available 04/19/2020 59160 8 RxNorm Lindaesther Hansen MA null, [place] - [facility] 0 11:37:43 605778 Product containin g 3-hydroxy -3-methyl glutaryl- coenzyme A reductase inhibitor (product) medicatio n Not available Not available Not available 10/05/2024 29310 009 SNOMED Ambar Dee MA null, [place] - [facility] 4 09:41:07 Medications Name Sig Start Date [...] and Address Organization Details Last Updated DateTime 1 160.02 cm 37 kg/m2 23539.8 1 g 96 % 96 % 96 /min 100 mm[Hg] 60 mm[Hg] Benton Jimenez MA [facility] 1 16:39:16 Date Recorded Body height Provider Name an d Address Organization Details Last Updated DateTime 10/16/2021 160.02 cm Benton Jimenez MA [facility] 10/16 16:34:16 Date Recorded Body height Respiratory rate Body mass index (BMI) Body weight Body temperature Heart rate Systolic blood pressure Diastolic blood pressure Provider Name and Address Organization Details Last Updated DateTime 2 160.02 cm 18 /min 35.3 kg/m2 74370.6 g 97.2 [degF] 104 /min 129 mm[Hg] 100 mm[Hg] Trudy CallahanVIKTORIYA [facility] 2 12:33:07 Date Recorded Body height Body mass index (BMI) Body weight Oxygen saturation Oxygen saturation in Arterial blood by Pulse oximetry Heart rate Systolic blood pressure Diastolic blood pressure Provider Name and Address Organization Details Last Updated DateTime 4 160.02 cm 32.3 kg/m2 42140.6 1 g 95 % 95 % 61 /min 122 mm[Hg] 72 mm[Hg] Ambar Dee MA [facility] 4 09:53:26 Social History Question Answer Notes LastModified by Organizat ion Details LastModified Time Tobacco Smoking Status Current Every Day Smoker Trying to stop being using NiControl inhaler-hasn 't smoked in 3 wks. Benton Jimenez MA null, [facility] 10/16/2021 16:32:37 Do You Have An Advance [...] 14:54:27 Sister Family history of malignant neoplasm Zac orona [email or web address] Not available 08/02/2019 14:54:47 Sister Dementia [...] Skin Problems N Anemia N Heart Attack (OK) N Diabetes Y Seizures/Epilepsy N Asthma Y [...] PF, 30 mcg/0.3 mL dose 1 completed Sonya Reese [place], [place] [facility] 05/01/2021 10:05:05 Influenza, split virus, quadrivalent, PF 9 completed Not Available [facility] 12/02/2019 02:38:45 Influenza, split virus, quadrivalent, preservative 0 completed Linda Hansen MA [facility], [place] [facility] 08/28/2020 11:13:06 Past Encounters Encounter ID Performer Location Encounter Start Date Encounter Closed Date Diagnosis/Indication Diagnosis SNOMED-CT Code Diagnosis ICD10 Code [id number] Neva Holden MD [facility] [address] [place] [address] 08/02/2019 14:19:32 08/03/2019 10:15:47 Diabetes mellitus 28087299 E11.9 Peripheral arterial insufficiency 2226412589 84359 I73.9 Bilateral knee pain 1187 894033 2923623 M25.561 M25.562 Pain in ri ght hip joint 2727991760 11111 M25.551 Disorder o f vocal cord 52832222 J38.3 Screening mammography 24 267261 Z12.31 Tobacco user 965718592 Z 72.0 Adult heal th examination 321690018 Z00.00 Urinary incontinence 165 091037 R32 Mixed hyperlipidemia 267 319847 E78.2 Essential hypertension 88764450 I10 [id number] Neva Holden MD [facility] [address] [place] [address] 09/22/2019 10:09:29 09/26/2019 14:40:41 Active or passive immunization 516541008 Z23 Screening mammography 24 856445 Z12.31 Trying to give up smoking 175801293 Z72.0 Bilateral knee pain 1187 551739 7715950 M25.561 M25.562 Depression screening 171 080450 Z13.31 [id number] JOSE BLANCO [facility] [address] [place] [address] 11/17/2019 14:34:43 11/20/2019 11:23:14 Acute otitis media 8181919 H66.92 [id number] Neva Holden MD [facility] [address] [place] [address] 12/25/2019 09:55:14 12/26/2019 09:25:01 Hyperlipidemia screening 982902491 Z13.220 History of tympanostomy 894285901 Z93.8 Essential hypertension 78437701 I10 Vitamin D deficiency 347 13537 E55.9 Tobacco user 513249366 Z 72.0 Bilateral knee pain 1187 966044 7236354 M25.561 M25.562 Chronic low back pain 27 3275830 M54.5 Type 2 patrick betes mellitus 26345544 E11.59 [id number] Neva Holden MD [facility] [address] [place] [place] [address] 01/19/2020 16:02:06 01/22/2020 12:01:20 Chronic obstructive pulmonary disease 31269682 J44.9 Bilateral cataracts 9572 2004 H26.9 Bilateral knee pain 1187 723445 5483251 M25.561 M25.562 Essential hypertension 90899477 I10 [id number] Matti Paris MD [facility] [address] [place] [address] 02/01/2020 13:53:27 02/08/2020 16:34:26 Acute sinusitis 71372682 J01.90 Dysfunctio n of eustachian tube 26816837 H69.93 [id number] Neva Holden MD [facility] [address] [place] [address] 02/14/2020 09:15:25 02/16/2020 10:06:53 Fracture of rib 64567509 S22.31XD Bilateral knee pain 1187 333775 9917713 M25.561 M25.562 Moderate r ecurrent major depression 76210809 F33.1 [id number] Neva Holden MD [facility] [address] [place] [place] [address] 04/19/2020 09:52:32 04/22/2020 17:32:47 Otitis media 40032870 H66.93 Type 2 patrick betes mellitus 44015293 E11.59 Renal diso rder due to type 2 diabetes mellitus 847397830 E11.21 [id number] Neva Holden MD [facility] [address] [place] [address] 06/05/2020 16:02:08 06/10/2020 09:31:12 Acute low back pain 233925376 M54.5 [id number] Neva Holden MD [facility] [address] [place] [address] 08/28/2020 10:23:47 09/02/2020 09:17:04 Administration of influenza vaccine 48762690 Z23 Hemorrhoids 49407314 K64 .9 Lumbago with sciatica 20 6221801 M54.40 Decreased vascular flow 17466141 R94.39 Acute low back pain 2788 64093 M54.5 Screening mammography 24 592986 Z12.31 Moderate p ersistent asthma 205257740 J45.40 [id number] Neva Holden MD [facility] [address] [place] [address] 11/22/2020 08:40:06 12/03/2020 07:50:58 Diarrhea 48959872 R19.7 Right lowe r quadrant pain 118468236 R10.31 Acute sinusitis 98652698 J01.90 Coronary arteriosclerosis 20281758 I25.10 Lumbago with sciatica 20 9237706 M54.40 Mixed anxi ety and depressive disorder 555237048 F41.8 [id number] Neva Holden MD [facility] [address] [place] [address] 02/20/2021 10:53:00 02/21/2021 00:41:20 Bilateral knee pain 5290309893 9132635 M25.561 M25.562 Mixed hyperlipidemia 267 287331 E78.2 Essential hypertension 20741526 I10 Type 2 patrick betes mellitus 49406545 E11.59 [id number] Neva Holden MD [facility] [address] [place] [address] [place] [address] 05/14/2021 10:06:50 05/15/2021 12:38:02 Type 2 diabetes mellitus 59683469 E11.59 Adult heal th examination 111685475 Z00.00 Mild inter mittent asthma 939586601 J45.20 Lumbago with sciatica 20 1573047 M54.40 Essential hypertension 79828114 I10 Acute sinusitis 68175736 J01.90 Cigarette smoker 8093706 7 F17.210 Depression screening 171 824597 Z13.31 [id number] Brittanie Baires [facility] [address] [place] [address] 06/09/2021 09:41:31 06/10/2021 08:00:07 Adult health examination 424703376 Z00.00 Long-term drug therapy 194794607 Z79.137 [id number] Hollis Dash PA-C [facility] [address] [place] [address] 06/25/2021 08:00:32 06/30/2021 06:20:50 Asthma 911885757 J45.909 Chronic ob structive pulmonary disease 32942962 J44.9 Peripheral vascular disease 272176765 I73.9 Tick bite 07975983 W57.X XXA Essential hypertension 06836111 I10 Lumbago with sciatica 20 9532685 M54.40 Diabetes mellitus 775833 09 E11.9 [id number] JOSE BLANCO [facility] [address] [place] [address] 07/09/2021 08:12:23 07/14/2021 10:04:06 Chronic obstructive pulmonary disease 39112228 J44.9 Acute exac erbation of chronic obstructive pulmonary disease 438386724 J44.1 Seasonal a llergic rhinitis 119283189 J30.2 [id number] JOSE BLANCO [facility] [address] [address] 07/09/2021 09:54:19 07/09/2021 15:29:58 [id number] Jasson Dawn MD [facility] [address] [address] 09/15/2021 08:35:55 09/17/2021 10:35:36 Chronic obstructive pulmonary disease 85896938 J44.9 Diabetes mellitus 952985 09 E11.9 Essential hypertension 44096511 I10 Hyperlipidemia 46978891 E78.5 Osteoarthritis 639498704 M19.90 Obesity 970676518 E66.9 Peripheral vascular disease 833431548 I73.9 Screening mammography 24 256673 Z12.31 Chronic otitis media 211 70585 H66.90 [id number] JOSE PARDO [facility] [address] [place] [address] 09/25/2021 16:19:42 09/26/2021 09:58:03 Viral upper respiratory tract infection 096534637 J06.9 Bilateral hearing loss 81775062 H91.93 [id number] JOSE PARDO [facility] [address] [place] [address] 10/16/2021 08:08:57 10/20/2021 10:45:33 Viral upper respiratory tract infection 681626896 J06.9 Viral syndrome 766586106 B34.9 [id number] Matti Paris MD [facility] [address] [place] [address] 08/04/2022 12:26:19 08/05/2022 11:36:13 Acute sinusitis 53686909 J01.90 Acute otitis media 04860 03 H66.92 [id number] Matti Balderas MD [facility] [address] [address] 10/05/2024 09:37:24 10/06/2024 14:35:39 Chronic obstructive pulmonary disease 11467924 J44.9 Diabetes mellitus 820950 09 E11.9 Essential hypertension 49921419 I10 Malignant neoplasm of urinary bladder 533294628 C67.9 Atheroscle rosis of coronary artery without angina pectoris 4774662702 99417 I25.10 Hypercholesterolemia 136 61153 E78.00 Smoker 16591671 F17.200 Osteoarthritis 895039753 M19.90 Health Concerns Section Related Observation LastModified by Organization Detai ls LastModified Time None Recorded Concern Status LastModified by Organization Details LastModified Time None Recorded Advance Directives Directive N: Payers Encounter Date Sequence Insurance Name Policy Number Policy Larsen Covered Member ID Larsen Member ID Guarantor Name 09/15/2021 1 [employer] ON OR AFTER 05/15/21 (MEDICAID REPLACEMENT - HMO) Rody Gelso [id number] Rody Gelso 09/25/2021 1 [employer] ON OR AFTER 05/15/21 (MEDICAID REPLACEMENT - HMO) Rody Gelso [id number] Rody Gelso 10/16/2021 1 [employer] ON OR AFTER 05/15/21 (MEDICAID REPLACEMENT - HMO) Rody Gelso [id number] Rody Gelso 08/04/2022 1 [employer] ON OR AFTER 05/15/21 (MEDICAID REPLACEMENT - HMO) Rody Gelso [id number] Rody Gelso 10/05/2024 1 [employer] ON OR AFTER 05/15/21 (MEDICAID REPLACEMENT - HMO) Rody Gelso [id number] Rody Gelso Notes Date Note Type Note Provider Name and Address Organization Details Recorded Time 09/15/2021 text/html smoker, Covid vaccinated.... no fevers/chills/SOB. .. BS = 151... BP = 127/72... has PAD hx with stents in bilateral legs... right leg pain with walking... Jasson Dawn MD Attn: Accounting,[address] [place], [address], [facility] 09/15/2021 12:29:34 09/25/2021 text/html Pt presents with wet cough, congestion, rhinorrhea, sinus tenderness, and headaches for the past 2 wks. Has tried neti pot, dayquil, benadryl, and mucinex w/o relief. No sick/COVID contacts. Pt is not vaccinated. Denies fever, chills, chest pain, SOB, n/v/d, abd pain, dizziness, or weakness.H/o chronic ear pain and hearing loss, saw ENT yesterday and was given abx that pt is allergic to. JOSE PARDO Attn: Accounting[address] [place], [address], [facility] 09/26/2021 10:05:53 10/16/2021 text/html Phone visit due to coronavirus pandemic. Pt presents with cough, sore throat, nasal congestion, chest congestion, and fatigue x 1wk. Pt has been taking care of her great niece who has similar sx. Taking OTC mucinex, nyquil, and dayquil w/o relief. Pt had similar sx 1 mo ago and states that antibiotic did not help. C/o increased fatigue and napping more than usual. Denies fever, chills, chest pain, SOB, n/v/d, abd pain, dizziness, or headaches. JOSE PARDO Attn: Accounting,[address] [facility], [place], [address], [facility] 10/17/2021 10:08:39 08/04/2022 text/html patient complaining of nasal congestion and drainage. She has had a problem with sinusitis in the past. It has been going on for 2 or 3 months at this time. She is also complaining of blockage of her left ear with some drainage. She has had a tube in that ear almost 10 years ago. Matti Paris MD [address] [place], [address], [facility] 08/04/2022 12:40:41 10/05/2024 text/html presents to the office for initial evaluation has bladder cancer and is being treated by urology has copd and dm the htn is under control is a smoker the gerd is under control has afib and sees dr aguilar elevated chol Matti Balderas MD Attn: Accounting[address] [place], [address], [facility] 10/05/2024 17:20:45 OBGyn Episode No OBEpisode recorded.
--- OUTSIDE RECORDS SUMMARY | 2024-11-12 05:22 | XMS_ITS | Encounter Summary ---
Author Organization [facility] Address [address] [facility] [place] [address] Care Team Providers Care Septic Tank Cleaner Name Role Phone Deisi Andrews MD Primary Care Provider [phone] Reason for Visit * Reason Comments Follow-up BLADDER CANCER BCG I NSTILLATION #5 Encounter Details Date Type Department Care Team (Late st Contact Info) Description 09/01/2024 11:00 AM CDT Clinical Support [facility] - Urology [address] [place] [address] [address] [place] [address] Jose Oliver MD [address] [place] [address] Malignant neoplasm of urinary bladder, unspecified site [...] st Contact Info) Description 01/19/2025 11:30 AM OIL FIRE SPECIALIST Procedure visit [facility] - Urology [address] [place] [address] Rd [address] [place] [address] Jose Oliver MD [address] [place] [address] documented as of this encounter Goals Goal [...] POCT - Ketones UA POCT - Specific Whiting UA 1.025 Blood Urine POCT - pH [...] mg documented in this encounter Care Teams Septic Tank Cleaner Relationship Specialty Start Date End Date Deisi Andrews MD [address] [place] [phone] PCP - General Family Medicine 05/26/23 10/26/24 documented as of this encounter
--- OUTSIDE RECORDS SUMMARY | 2024-11-12 05:22 | XMS_ITS | Encounter Summary ---
Author Organization [facility] Address [address] [facility] [place] [address] Care Team Providers Care Die Reamer Name Role Phone Deisi Andrews MD Primary Care Provider Reason for Visit * Reason Onset Date Comments Results 06/26/2024 Encounter Details Date Type Department Care Team (Late st Contact Info) Description 06/26/2024 Telephone [facility] [address] [place] [address] Jose Oliver MD [address] [place] [address] Results Social History Tobacco Use [...] Contact Info) Description 01/19/2025 11:30 AM MOLD PARTER Procedure visit [facility] - Urology [address] [place] [address] [address] [place] [address] Jose Oliver MD [facility] [place] [address] documented as of this encounter Goals Goal [...] on filedocumented in this encounter Care Teams Die Reamer Relationship Specialty Start Date End Date Deisi Andrews MD [address] [place] [address] PCP - General Family Medicine 05/26/23 10/26/24 documented as of this encounter
--- OUTSIDE RECORDS SUMMARY | 2024-11-12 05:22 | XMS_ITS | Encounter Summary ---
Author Organization [facility] Address [address] [facility] [place] [address] Care Team Providers Care Reinforcing Rod Layer Name Role Phone Deisi Andrews MD Primary Care Provider [phone] Encounter Details Date Type Department Care Team [...] st Contact Info) Description 01/19/2025 11:30 AM HAND METHOD LASTING 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 Procedure visit [facility] [address] [facility] [address] [place] [address] Jose Oliver MD [address] [facility] [address] [facility] [place] [address] documented as of this encounter Goals Goal [...] on filedocumented in this encounter Care Teams Reinforcing Rod Layer Relationship Specialty Start Date End Date Deisi Andrews MD [address] [place] [address] [place] [address] PCP - General Family Medicine 05/26/23 10/26/24 documented as of this encounter
--- OUTSIDE RECORDS SUMMARY | 2024-11-12 05:22 | XMS_ITS | Encounter Summary ---
Author Organization [facility] Address [address] [facility] [place] [address] Care Team Providers Care Nurse Orthopedic Name Role Phone Deisi Andrews MD Primary Care Provider [phone] Encounter Details Date Type Department Care Team [...] st Contact Info) Description 01/19/2025 11:30 AM CUSTOMER SERVICE SPECIALIST Procedure visit [facility] [address] [facility] [address] [place] [address] Jose Oliver MD [address] [facility] [address] [facility] [place] [address] documented as of this encounter Goals Goal [...] filedocumented in this encounter Care Teams Nurse Orthopedic Relationship Specialty Start Date End Date Deisi Andrews MD [address] [place] [address] [place] [address] PCP - General Family Medicine 05/26/23 10/26/24 documented as of this encounter
--- OUTSIDE RECORDS SUMMARY | 2024-11-12 05:22 | XMS_ITS | Encounter Summary ---
Author Organization [facility] Address [address] [facility] [place] [address] Care Team Providers Care Skilled Nursing Facility Counselor Name Role Phone Deisi Andrews MD [...] st Contact Info) Description 01/19/2025 11:30 AM PLANT ENGINEERING SUPERVISOR Procedure visit [facility] [address] [facility] [address] [place] [address] Jose Olvier MD [address] [facility] 2L [facility] [place] [address] documented as of this encounter Goals Goal [...] on filedocumented in this encounter Care Teams Skilled Nursing Facility Counselor Relationship Specialty Start Date End Date Deisi Andrews MD [address] [place] [address] [place] [address] PCP - General Family Medicine 05/26/23 10/26/24 documented as of this encounter
--- OUTSIDE RECORDS SUMMARY | 2024-11-12 05:22 | XMS_ITS | Encounter Summary ---
Author Organization [facility] Address [address] [facility] [place] [address] Care Team Providers Care Ward Nurse Name Role Phone Deisi Andrews MD Primary Care Provider [phone] Matti Balderas MD Primary Care Provider [phone] Reason for Visit * Reason Onset Date Comments Med Question 09/13/2024 Appointment 09/13/2024 Encounter Details Date Type Department Care Team (Late st Contact Info) Description 09/13/2024 Telephone [facility] - Centralized Scheduling [address] [place] [address] Jose Oliver MD [address] [place] [address] Med Question; Appointment Social History [...] Contact Info) Description 01/19/2025 11:30 AM IT PROGRAM MANAGER Procedure visit [facility] - Urology [address] [place] [address] [address] [place] [address] Jose Oliver MD [address] [place] [address] documented as of this encounter Goals Goal [...] on filedocumented in this encounter Care Teams Ward Nurse Relationship Specialty Start Date End Date Deisi Andrews MD [address] [place] [place] [address] PCP - General Family Medicine 05/26/23 10/26/24 Matti Balderas MD [address] [place] [address] PCP - General Family Medicine 10/27/24 documented as of this encounter
--- OUTSIDE RECORDS SUMMARY | 2024-11-12 05:22 | XMS_ITS | Encounter Summary ---
Author Organization [facility] Address [address] [facility] [place] [address] Care Team Providers Care Staff Pharmacist Hospital Name Role Phone Deisi Andrews MD Primary Care Provider [phone] Encounter Details Date Type Department Care Team (Late st Contact Info) Description 08/11/2024 11:00 AM CDT Clinical Support [facility] [address] [place] [address] [address] [place] [address] Jose Oliver MD [address] [place] [address] Malignant neoplasm of urinary bladder, unspecified site [...] st Contact Info) Description 01/19/2025 11:30 AM AGRICULTURAL MECHANIC Procedure visit [facility] - Urology [address] [place] [address] [address] [place] [address] Jose Oliver MD [address] [place] [address] documented as of this encounter Goals Goal [...] neg [facility] [address] Specific [place] UA 1.[address] [facility] [address] Blood [...] [facility] [address] [place] [address], [facility] [phone] documented in this encounter Visit Diagnoses Diagnosis [...] mg documented in this encounter Care Teams Staff Pharmacist Hospital Relationship Specialty Start Date End Date Deisi Andrews MD [address] [place] [address] [place] [address] PCP - General Family Medicine 05/26/23 10/26/24 documented as of this encounter
--- OUTSIDE RECORDS SUMMARY | 2024-11-12 05:22 | XMS_ITS | Encounter Summary ---
Author Organization [facility] Address [address] [facility] [place] [address] Care Team Providers Care Cotton Classer Aide Name Role Phone Deisi Andrews MD Primary Care Provider [phone] Encounter Details Date Type Department Care Team [...] Contact Info) Description 01/19/2025 11:30 AM SALES 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 [employer] Procedure visit [facility] [address] [facility] [address] [place] [address] Jose Oliver MD [address] [facility] 2L [facility] [place] [address] documented as of this encounter Goals Goal [...] filedocumented in this encounter Care Teams Cotton Classer Aide Relationship Specialty Start Date End Date Deisi Andrews MD [address] [place] [address] [place] [address] PCP - General Family Medicine 05/26/23 10/26/24 documented as of this encounter
--- OUTSIDE RECORDS SUMMARY | 2024-11-12 05:22 | XMS_ITS | Encounter Summary ---
Author Organization [facility] Address [address] [facility] [place] [address] Care Team Providers Care Records Management Engineer Name Role Phone Deisi Andrews MD Primary Care Provider [phone] Encounter Details Date Type Department Care Team [...] st Contact Info) Description 01/19/2025 11:30 AM FACING END TRIMMER Procedure visit [facility] [address] [facility] [address] [place] [address] Jose Oliver MD [address] [facility] 2L [facility] [place] [address] documented as of this encounter Goals Goal [...] on filedocumented in this encounter Care Teams Records Management Engineer Relationship Specialty Start Date End Date Deisi Andrews MD [address] [place] [address] [place] [address] PCP - General Family Medicine 05/26/23 10/26/24 documented as of this encounter
--- OUTSIDE RECORDS SUMMARY | 2024-11-12 05:22 | XMS_ITS | Encounter Summary ---
Author Organization [facility] Address [address] [facility] [place] [address] Care Team Providers Care Medical Records Clerk Name Role Phone Deisi Andrews MD Primary Care Provider [phone] Encounter Details Date Type Department Care Team [...] st Contact Info) Description 01/19/2025 11:30 AM LLAMA FARMER Procedure visit [facility] [address] [facility] [address] [place] [address] Jose Oliver MD [address] [facility] 2L [facility] [place] [address] documented as of this encounter Goals Goal [...] filedocumented in this encounter Care Teams Medical Records Clerk Relationship Specialty Start Date End Date Deisi Andrews MD [address] [place] [address] [place] [address] PCP - General Family Medicine 05/26/23 10/26/24 documented as of this encounter
--- OUTSIDE RECORDS SUMMARY | 2024-11-12 05:22 | XMS_ITS | Encounter Summary ---
Author Organization [facility] Address [address] [facility] [place] [address] Care Team Providers Care Hand Sewer Name Role Phone Deisi Andrews MD Primary Care Provider [phone] Encounter Details Date Type Department Care Team [...] st Contact Info) Description 01/19/2025 11:30 AM COMMUNICATION EQUIPMENT MECHANIC Procedure visit [facility] [address] [facility] [address] [place] [address] Jose Oliver MD [address] [facility] 2L [facility] [place] [address] documented as of this encounter Goals Goal [...] on filedocumented in this encounter Care Teams Hand Sewer Relationship Specialty Start Date End Date Deisi Andrews MD [address] [place] [address] [place] [address] PCP - General Family Medicine 05/26/23 10/26/24 documented as of this encounter
--- OUTSIDE RECORDS SUMMARY | 2024-11-12 05:22 | XMS_ITS | Encounter Summary ---
Author Organization [facility] Address [address] [facility] [place] [address] Care Team Providers Care Wood Router Hand Name Role Phone Deisi Andrews MD Primary Care Provider [phone] Reason for Visit * Reason Comments Follow-up BCG INSTILLATION #6 Encounter Details Date Type Department Care Team (Late st Contact Info) Description 09/08/2024 10:30 AM CDT Clinical Support [facility] [address] [place] [address] [address] [place] [address] Melissa Rolon, ENGINEERING EQUIPMENT OPERATOR-[facility] [address] [facility] [place] [address] Asymptomatic microscopic hematuria Social History Tobacco Use [...] CDT -To schedule an appointment please call [phone]. -To reach the [place] office please call -For any nursing or surgery questions please call [phone] -FAX: or documented in this encounter Progress Notes * Melissa Rolon, MEI-ALCOHOLISM WORKER - 09/11/2024 9:00 AM CDT Patient here [...] Contact Info) Description 01/19/2025 11:30 AM FARMWORKER FRYER FARM Procedure visit [facility] - Urology [address] [place] [address] [address] [place] [address] Jose Oliver MD [address] [place] [address] Scheduled Orders Name Type Priority Associated Diagnoses [...] POCT - Ketones UA POCT - Specific [place] UA 1.015 Blood Urine POCT 2+ pH UA 6.0 Protein UA + Urobilinogen UA - Nitrite UA - WBC UA 1+ Urine URINE / Unknown 09/08/2024 Melissa Rolon ENGINEERING EQUIPMENT OPERATOR-ALCOHOLISM WORKER LAB - POINT OF CARE ORDERABLES documented in this encounter Visit Diagnoses Diagnosis Asymptomatic microscopic hematuria- Primary documented in this encounter Care Teams Wood Router Hand Relationship Specialty Start Date End Date Deisi Andrews MD [address] [place] [address] [place] [address] PCP - General Family Medicine 05/26/23 10/26/24 documented as of this encounter
--- OUTSIDE RECORDS SUMMARY | 2024-11-12 05:22 | XMS_ITS | Patient Health Summary ---
Author Organization [facility] [employer] Address [address] [place] [address] Care Team Providers Care Worship Leader Name Role Phone Matti Balderas MD Primary Care Provider [phone] Note from [facility],non-owned Affiliates and Associated Physician Practices is amultiple site organization consisting of ambulatory clinics and hospital sitesin [place], [place]. This disclosure is being madepursuant to the Care Everywhere program and may not contain all information available regarding this patient. Last updated 18.[facility] Allergies * Bee Venom(Swelling) -Medium Criticality * [...] evening meal * vitamin D, ergocalciferol, (DRISDOL) 82090 UNITS capsule(Started 01/29/2019) Take 1 (one) capsule [...] Problem Noted Date Diagnosed Date CAD in tanacross artery 10/24/2020 MDD (recurrent major depressive disorder) [...] FLUZONE TRIVALENT; 6MO+) (IIV3)(Given 12/16/2015) * Covid Ghostruck primary monovalent 12+ yr 0.3mL Purple cap(Given [...] Comments Blood Pressure 84/54 10/27/2024 2:11 PM MAINTENANCE PARTS TECHNICIAN Pulse 78 10/27/2024 2:11 PM MAINTENANCE PARTS TECHNICIAN Temperature 36.2 ??C (97.2 ??F) 10/27/2024 2:11 PM CS T Respiratory Rate 18 10/27/2024 2:11 PM MAINTENANCE PARTS TECHNICIAN Oxygen Saturation 96% 10/27/2024 2:11 PM MAINTENANCE PARTS TECHNICIAN Inhaled Oxygen Concentration 21% 06/21/2024 8 :20 AM CDT Weight 83.9 kg (185 lb) 09/19/2024 9:51 AM MAINTENANCE PARTS TECHNICIAN Height 160 cm (5' 3 ) 10/27/2024 2:11 PM MAINTENANCE PARTS TECHNICIAN Body Mass Index 32.77 09/15/2024 11:54 AM CDT Medical Devices Implanted Type Area Time Study Statistician Device Identifier Shelf Expiration Date Model / Serial / Lot Stent Trchbr 10mm 7fr 38mm 80cm Cvr Cath Implanted:Qty: 1 on 09/04/2020 by Kendrick Tao MD at [facility] N/A: Abdomen [employer]inge [employer] 04/05/2023 [id number] / / [id number] Stent Trchbr 8mm 7fr 38mm 80cm Cvr Cath Implanted:Qty: 1 on 09/04/2020 by Kendrick Tao MD at [facility] N/A: Abdomen [employer]inge [employer] 05/22/2023 [id number] / / [id number] Procedures * URINALYSIS AUTO - POINT OF [...] of urinary bladder, unspecified site (HCC) * SC URETERAL REFLUX STUDY(Performed 06/21/2024) Performed for Malignant neoplasm of urinary bladder, unspecified site (HCC) * SC CYSTO/URETERO/PYELOSCOPY W/BX(Performed 06/21/2024) Performed for Malignant neoplasm [...] TISSUE(Performed 01/17/2024) Performed for Other hydronephrosis * SC CYSTOURETHROSCOPY,URETER CATHETER(Performed 01/17/2024) Performed for Other hydronephrosis * GLUCOSE - POINT OF CARE(Performed 01/17/2024) * LAB RESULTS ORDER(Performed 01/12/2024) * FL CYSTO SURGERY(Performed 12/07/2023) Performed for Malignant neoplasm of urinary bladder, unspecified site (HCC) * GLUCOSE - POINT OF CARE(Performed 12/07/2023) * CYTOLOGY NON-COLLATING 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 PANEL (STL)(Performed 12/07/2023) Performed for Malignant neoplasm of urinary bladder, unspecified site (HCC) * PATHOLOGY TISSUE(Performed 12/07/2023) Performed for Malignant neoplasm of urinary bladder, unspecified site (HCC) * LARYNGEAL MASK AIRWAY(Performed 12/07/2023) * SC CYSTO/URETERO/PYELOSCOPY, DX(Performed 12/07/2023) Performed for Malignant neoplasm of urinary bladder, unspecified site (HCC) * SC CYSTOURETHROSCOPY,URETER CATHETER(Performed 12/07/2023) Performed for Malignant neoplasm of urinary bladder, unspecified site (HCC) * SC CYSTOURETHROSCOPY,FULGUR 2-5CM LESN(Performed 12/07/2023) Performed for Malignant [...] CREATININE - POCT INTERFACED(Performed 10/22/2023) * CYTOLOGY NON-COLLATING 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(Performed 06/02/2023) * CYTOLOGY NON-COLLATING 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 PANEL(Performed 06/02/2023) Performed for Malignant neoplasm [...] urinary bladder, unspecified site (HCC) * CYTOLOGY NON-COLLATING 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(Performed 08/14/2022) * CYTOLOGY NON-COLLATING 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 PANEL(Performed 08/14/2022) Performed for Malignant neoplasm of urinary bladder, unspecified site (HCC) * URINALYSIS AUTO - POINT OF CARE (AMB) [facility](Performed 08/14/2022) Performed for Malignant neoplasm of urinary bladder, unspecified site (HCC) * CARDIAC RHYTHM STRIP ORDER(Performed 03/26/2022) * GLUCOSE - POINT OF CARE(Performed 03/23/2022) * PATHOLOGY TISSUE EXAM (STL)(Performed 03/23/2022) Performed for Diagnosis unknown * ENDOTRACHEAL TUBE NOTE(Performed 03/23/2022) * SC CYSTO/URETERO/PYELOSCOPY, DX(Performed 03/23/2022) Performed for Diagnosis unknown [...] 12/02/2021) Performed for 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) * [id number] BLOOD(Performed 12/02/2021) Performed for Pulmonary emphysema, unspecified emphysema type (HCC) * [id number]-9-[id number] BLOOD PHENOTYPING PANEL(Performed 12/02/2021) Performed for Pulmonary emphysema, unspecified emphysema type (HCC) * LIPID PROFILE(Performed 12/02/2021) Performed for 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) * OPH OCT TEST [facility](Performed 12/02/2021) Performed for Blurred vision, bilateral * URINE DRUG SCREEN IMMUNOASSAY(Performed 10/06/2021) Performed for MDD (recurrent major depressive disorder) in remission ([facility]) * HEMOGLOBIN A1C(Performed 10/06/2021) Performed for MDD (recurrent major depressive disorder) in remission ([facility]) * VITAMIN D 25-HYDROXY(Performed 10/06/2021) Performed for MDD (recurrent major depressive disorder) in remission ([facility]) * COMPREHENSIVE METABOLIC PANEL(Performed 10/06/2021) Performed for MDD (recurrent major depressive disorder) in remission ([facility]) * CBC W AUTO DIFFERENTIAL(Performed 10/06/2021) Performed for MDD (recurrent major depressive disorder) in remission ([facility]) * TSH REFLEX FREE T4(Performed 10/06/2021) Performed for MDD (recurrent major depressive disorder) in remission ([facility]) * BLOOD GASES ART+COOX POCT(Performed 10/06/2021) * PFT OXYGEN DESATURATION STUDY(Performed 10/06/2021) Performed for Acute exacerbation of chronic obstructive pulmonary disease (COPD) ([facility]), Tobacco dependence, CATHERINE (obstructive sleep apnea) * SIX MINUTE WALK(Performed 10/06/2021) Performed for Acute exacerbation of chronic obstructive pulmonary disease (COPD) ([facility]), Tobacco dependence, CATHERINE (obstructive sleep apnea) * COMPLETE PFT W/WO BRONCHODILATOR(Performed 10/06/2021) Performed for Acute exacerbation of chronic obstructive pulmonary disease (COPD) ([facility]), Tobacco dependence, CATHERINE (obstructive sleep apnea) * LIPID PROFILE(Performed 09/30/2021) Performed for Hyperlipidemia, unspecified hyperlipidemia type * LDL CHOLESTEROL DIRECT(Performed 03/20/2021) Performed for PVD (peripheral vascular disease) ([facility]), Coronary artery disease involving tanacross heart without angina pectoris, unspecified vessel or lesion type, Hyperlipidemia, unspecified hyperlipidemia type * LIPID PROFILE(Performed 02/20/2021) Performed for Coronary artery disease of tan[place] artery of tanacross heart with stable angina pectoris ([facility]) * LAB RESULTS ORDER(Performed 11/02/2020) * CARDIAC PROCEDURE ORDER(Performed 11/02/2020) * CCL CARDIAC CATH LEFT(Performed 10/24/2020) Performed for Stable angina pectoris * GLUCOSE - POINT OF CARE(Performed 10/24/2020) * VAS CAROTID DUPLEX BILATERAL(Performed 10/22/2020) Performed for Bilateral carotid artery stenosis * VAS ARTERIAL ANKLE ARM INDEX(Performed 10/22/2020) Performed for PAD (peripheral artery disease) ([facility]) * VAS DILEEP ABD DOPPLER AO IVC ILIAC(Performed 10/22/2020) Performed for PAD (peripheral artery disease) ([facility]) * PT-INR(Performed 10/21/2020) Performed for Essential (primary) [...] 09/04/2020) Performed for PAD (peripheral artery disease) ([facility]) * GLUCOSE - POINT OF CARE(Performed 09/04/2020) * BASIC METABOLIC PANEL (CALCIUM TOTAL)(Performed 09/04/2020) Performed for PAD (peripheral artery disease) ([facility]) * CBC W/O DIFFERENTIAL(Performed 09/04/2020) Performed for PAD (peripheral artery disease) ([facility]) * VAS ARTERIAL ANKLE ARM INDEX(Performed 07/10/2020) Performed for Peripheral vascular disease with claudication ([facility]) * VAS DILEEP ABD DOPPLER AO IVC ILIAC(Performed 07/10/2020) Performed for Peripheral vascular disease with claudication ([facility]) * OPH OCT TEST [facility](Performed 06/12/2020) Performed [...] OF CARE (AMB) [facility] (10/27/2024 2:13 PM MAINTENANCE PARTS TECHNICIAN) Only the most recent of13 resultswithin the time period is included. Glucose UA neg [facility] [address] Bilirubin UA POCT neg [facility] [address] Ketones UA POCT neg [facility] [address] Specific [place] UA 1.[address] [facility] [address] Blood Urine POCT neg [facility] [address] pH UA 5.5 [facility] [address] Protein UA neg [facility] [address] Urobilinogen UA 0.2 [facility] [address] Nitrite UA neg [facility] [address] WBC UA neg [facility] [address] Urine URINE / Unknown 10/27/2024 2 :13 PM MAINTENANCE PARTS TECHNICIAN Jose Oliver MD LAB - POINT OF CAR E ORDERABLES [facility] [address] [place] [address], [facility] [phone] * CULTURE URINE (09/08/2024) Only the most recent of4 resultswithin the time period is included. Culture [facility] Comment: ??CULTURE, URINE, ROUTINE ?Micro Number: ?[id number] ??Test Status: ? Final ??Specimen Source: ?? Urine ??Specimen Quality: ??Adequate ??Result: ?Mixed genital unruly isolated. These superficial ? bacteria are not indicative of a urinary tract ? infection. No further organism identification is ? warranted on this specimen. If clinically ? indicated, recollect clean-catch, mid-stream ? urine and transfer immediately to Urine Culture ? Transport Tube. Test Performed at: [employer] ??[phone] GISELE JUSTICE MD 09/08/2024 09/09/2024 1:3 2 AM CDT Melissadebbie Rolon HYDRODYNAMICIST-MARKETING PRODUCTION COORDINATOR LAB - MICROBIOL OGY ORDERABLES [employer] [address] [place] [id number] * (ABNORMAL) URINALYSIS REFLEX TO MICROSCOPIC NO CULTURE (06/28/2024 3:18 PM CDT) Color UA Red(A) Straw, Yellow 06/28/2024 3:51 PM T [facility] Clarity UA Slt Cloudy(A) Clear 06/28/2024 3:51 PM [facility] Specific [place] UA 1.028 1.005 - 1.030 06/28/2024 3:51 PM [facility] pH UA 6.0 5.0 - 8.0 pH 06/28/2024 3:51 PM [facility] Protein UA 1+(A) Negative 06/28/2024 3:51 PM [facility] Glucose UA Negative Negative 06/28/2024 3:51 PM [facility] Ketone UA Negative Negative 06/28/2024 3:51 PM [facility] Bilirubin UA Negative Negative 06/28/2024 3:51 PM [facility] Blood UA 3+(A) Negative 06/28/2024 3:51 PM [facility] Nitrite UA Negative Negative 06/28/2024 3:51 PM [facility] Leukocyte Esterase Trace(A) Negative 06/28/2024 3:51 PM [facility] Urobilinogen UA Negative Negative mg/dL 06/28/2024 3:51 PM [facility] RBC UA >100(A) None Seen, 0-2, 3-5 /HPF 06/28/2024 3:51 PM [facility] WBC UA 0-5 None Seen, 0-5 /HPF 06/28/2024 3:51 PM CDT [facility] Squamous Epithelial Cells UA 0-2 None Seen, 0-2, 3-5 /HPF 06/28/2024 3:51 PM CDT [facility] Urine URINE SPECIMEN OBTAINED BY CLEAN CATCH PROCEDURE / Unknown Collection / Unknown 06/28/2024 3:18 PM CDT 06/28/2024 3:22 PM CDT Narrative [facility] - 06/28/2024 3:51 PM CDT Martir Choi MD LAB - URINALYSIS ORD ERABLES Performing Organization Address [facility]/ZIP Co de Phone Number [address] [address], [facility] [phone] * PT-INR [facility] (06/28/2024 3:17 PM CDT) Only the most recent of2 resultswithin the time period is included. PT 13.1 12.1 - 14.8 Seconds 06/28/2024 3:47 PM CDT [facility] INR 1.0 See Comment 06/28/2024 3:47 PM CDT [facility] Comment:The suggested therap eutic range for standard coumadin (warfarin) therapy is an INR of 2.0-3.0. For high-risk patients (Mechanical Mitral Valve Prosthesis, etc.), the suggested prophylactic therapeutic range is an INR of 2.5-3.5. Blood BLOOD SPECIMEN / Unknown Venipuncture / Unknown 06/28/2024 3:17 PM CDT 06/28/2024 3:26 PM CDT Martir Choi MD LAB - COAGULATION OR DERABLES Performing Organization Address City/[facility]/ZIP Co de Phone Number [address] [address], [place] [phone] * (ABNORMAL) CBC W AUTO DIFFERENTIAL (06/28/2024 3:17 PM CDT) Only the most recent of4 resultswithin the time period is included. WBC 12.1(H) 4.0 - 10.7 x10E9/L 06/28/2024 3:33 PM [facility] RBC Count 5.43(H) 3.90 - 5.20 x10E12/L 06/28/2024 3:33 PM [facility] Hemoglobin 15.3 11.9 - 15.8 g/dL 06/28/2024 3:33 PM [facility] Hematocrit 46.0 34.8 - 46.1 % 06/28/2024 3:33 PM [facility] MCV 84.7 80.0 - 98.0 fL 06/28/2024 3:33 PM [facility] MCH 28.2 26.7 - 33.6 pg 06/28/2024 3:33 PM [facility] MCHC 33.3 31.7 - 36.3 g/dL 06/28/2024 3:33 PM [facility] RDW-CV 13.0 11.3 - 14.8 % 06/28/2024 3:33 PM [facility] Platelet Count 218 150 - 420 x10E9/L 06/28/2024 3:33 PM [facility] MPV 9.9 7.8 - 11.4 fL 06/28/2024 3:33 PM [facility] Neutrophil % 65.5 41.0 - 74.0 % 06/28/2024 3:33 PM [facility] Lymphocyte % 24.0 17.0 - 47.0 % 06/28/2024 3:33 PM [facility] Monocyte % 6.7 3.0 - 11.0 % 06/28/2024 3:33 PM [facility] Eosinophil % 3.1 0.0 - 7.0 % 06/28/2024 3:33 PM [facility] Basophil % 0.4 0.0 - 1.6 % 06/28/2024 3:33 PM [facility] Immature Granulocytes % 0.3 0.0 - 1.0 % 06/28/2024 3:33 PM [facility] Neutrophil Absolute 7.90(H) 1.60 - 7.50 x10E9/L 06/28/2024 3:33 PM [facility] Lymphocyte Absolute 2.90 1.00 - 4.40 x10E9/L 06/28/2024 3:33 PM [facility] Monocyte Absolute 0.81 0.15 - 1.00 x10E9/L 06/28/2024 3:33 PM [facility] Eosinophil Absolute 0.38 0.00 - 0.60 x10E9/L 06/28/2024 3:33 PM [facility] Basophil Absolute 0.05 0.00 - 0.13 x10E9/L 06/28/2024 3:33 PM [facility] Blood BLOOD SPECIMEN / Unknown Venipuncture / Unknown 06/28/2024 3:17 PM CDT 06/28/2024 3:26 PM CDT Martir Choi MD LAB - HEMATOLOGY ORD ERABLES [facility] [address] [place] [address], [facility] [phone] * BASIC METABOLIC PANEL (CALCIUM TOTAL) (06/28/2024 3:17 PM CDT) Only the most recent of5 resultswithin the time period is included. BUN 15 7 - 26 mg/dL 06/28/2024 3:51 PM [facility] Creatinine 0.69 0.56 - 0.96 mg/dL 06/28/2024 3:51 PM [facility] Sodium 138 136 - 145 mmol/L 06/28/2024 3:51 PM [facility] Potassium 4.0 3.5 - 4.5 mmol/L 06/28/2024 3:51 PM [facility] Chloride 103 98 - 107 mmol/L 06/28/2024 3:51 PM [facility] CO2 26 22 - 29 mmol/L 06/28/2024 3:51 PM [facility] Glucose 102 70 - 115 mg/dL 06/28/2024 3:51 PM [facility] Calcium 9.4 8.4 - 10.2 mg/dL 06/28/2024 3:51 PM CDT [facility] Anion Gap 9 6 - 16 06/28/2024 3:51 PM CDT [facility] BUN/Creatinine Ratio 22 7 - 23 06/28/2024 3:51 PM CDT [facility] Osmolality Calculated 287 275 - 295 mOsm/kg 06/28/2024 3:51 PM CDT [facility] eGFR by CKD-EPI >90 >=90 mL/min/1.7 3 m2 06/28/2024 3:51 PM CDT [facility] Blood BLOOD SPECIMEN / Unknown Venipuncture / Unknown 06/28/2024 3:17 PM CDT 06/28/2024 3:26 PM CDT Martir Choi MD LAB - CHEMISTRY BASSAM CONTRERAS Performing Organization Address City/[facility]/ZIP Co de Phone Number [facility] [address] [place] [address], [facility] [phone] * [place] Cysto Surgery (06/21/2024 9:46 PM CDT) Only the most recent of3 resultswithin the time period is included. Narrative [facility] - 06/21/2024 9:46 PM CDT Fluoroscopy was used for this exam in the OR. Please see the Operative report. Jose Oliver MD FLUOROSCOPY KALIN BARBER Performing Organization Address [facility] Co de Phone Number [facility] * PATHOLOGY TISSUE (06/21/2024 10:01 AM CDT) Only the most recent of4 resultswithin the time period is included. Case Report Surgical Pathology Report ? Case: [id number] ? Authorizing Provider: ??Jose Oliver MD ?Collected: ? 06/21/2024 10:01 AM ? Ordering Location: ? [facility] ?Received: ?06/21/2024 01:25 PM ? Pathologist: ? Nicole Glaser MD ? Specimens: ?? A) - Bladder Biopsy, 1. right floor bladder ? B) - Bladder Biopsy, 2. Right posterior wall ? 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 Ki-67 stains the majority of urothelial cells, including cells at the surface, supporting a diagnosis of carcinoma in situ 06/23/2024 8:22 AM [facility] Clinical History The patient is a 63 year old woman with history of bladder cancer, now with 2 areas of mild bleeding and mild inflammation noted that were biopsied along the right bladder floor and posterior lateral wall. 06/23/2024 8:22 AM [facility] Gross Description The [...] cassette B1. DF 06/23/2024 8:22 AM T [facility] Pathologist Location at [facility] 06/23/2024 8:22 AM T [facility] Disclaimer The performance characteristics of all immunohistochemical and indirect immunofluorescence stains (if any) cited in this report were determined by the Histopathology Laboratory of [facility]. Some of these tests were developed by [...] attending (teaching) pathologist. 06/23/2024 8:22 AM T [facility] Embedded Images 06/23/2024 8:22 AM T [facility] Biopsy, Excision URINARY BLADDER BIOPSY SPECIMEN / Unknown 06/21/2024 10:01 AM CDT 06/21/2024 1:25 PM CDT Comment:Pre-op diagnosis: Malignant neoplasm of urinary bladder, unspecified site (HCC) Biopsy, Excision URINARY BLADDER BIOPSY SPECIMEN / Unknown 06/21/2024 10:06 AM CDT 06/21/2024 1:25 PM CDT Comment:Pre-op diagnosis: Malignant neoplasm of urinary bladder, unspecified site (HCC) Jose Oliver MD LAB - PATHOLOGY/AIDAN MUNOZ ORDERABLES [facility] [address] [place] [address], [facility] [phone] * (ABNORMAL) GLUCOSE - POINT OF CARE (06/21/2024 8:10 AM CDT) Only the most recent of12 resultswithin the time period is included. Glucose WB/POC 149(H) 70 - 115 mg/dL 06/21/2024 8:47 AM CDT [facility] Specimen Type Venous 06/21/2024 8:47 AM CDT [facility] Blood BLOOD SPECIMEN / Unknown 06/21/2024 8:10 AM CDT 06/21/2024 8:47 AM CDT Jose Oliver MD LAB - POINT OF CAR E ORDERABLES Performing Organization Address [facility]/ZIP Co de Phone Number [address] [address], [facility] [phone] * PTT [facility] (06/21/2024 8:07 AM CDT) APTT 26.7 23.0 - 38.4 Seconds 06/21/2024 8:35 AM CDT [facility] Comment:Suggested therapeuti c range for full dose I.V. unfractionated heparin therapy for venous thromboembolism is 71 to 109 seconds. Blood BLOOD SPECIMEN / Unknown Venipuncture / Unknown 06/21/2024 8:07 AM CDT 06/21/2024 8:09 AM CDT Jose Oliver MD LAB - COAGULATION ORDERABLES Performing Organization Address City/[facility]/ZIP Co de Phone Number [address] [address], [place] [phone] * LAB RESULTS ORDER (06/07/2024) Only the [...] kidney. > Dictated by Margi Brooke MD (Call Out Operator) 04/20/2024 9:43 AM I, Samira Tariq DO have personally reviewed and interpreted this examination/study. > Interpreting Provider: Samira Tariq DO on 04/20/2024 3:39 PM Narrative 04/20/2024 3:39 PM CDT PROCEDURE: ??NM RENAL SCAN W DRUG, DATE/TIME OF EXAM: ??04/20/2024 9:58 AM, LOCATION ??[facility] INDICATION: N13.39: Other hydronephrosis ADDITIONAL CLINICAL INFORMATION: [...] DATE/TIME OF EXAM: 04/20/2024 9:58 AM, LOCATION [facility] INDICATION: N13.39: Other hydronephrosis ADDITIONAL CLINICAL INFORMATION: [...] kidney. > Dictated by Margi Brooke MD (Call Out Operator) 04/20/2024 9:43 AM I, Samira Tariq DO have personally reviewed and interpreted this examination/study. > Interpreting Provider: Samira Tariq DO on 04/20/2024 3:39 PM Jose Oliver MD NM ORDERABLES * CYTOLOGY NON-COLLATING 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 PANEL ([facility]) (12/07/2023 8:21 AM MAINTENANCE PARTS TECHNICIAN) Case Report Medical Cytology Report ? Case: [id number] ? Authorizing Provider: ??Jose Oliver MD ?Collected: ? 12/07/2023 08:21 AM ? Ordering Location: ? [facility] ?Received: ?12/07/2023 02:59 PM ? Pathologist: ? Jose Rico MD ? Specimen: ?Body Fluid , left ureteral ? 12/09/2023 12:32 PM MAINTENANCE PARTS TECHNICIAN [facility] Specimen Adequacy Adequate cellularity for evaluation. 12/09/2023 12:32 PM MAINTENANCE PARTS TECHNICIAN [facility] Final Diagnosis Left ureter, cytology from cystoscopy: - Atypical urothelial cells 12/09/2023 12:32 PM [facility] Clinical History The [...] no obvious papillary mass. 12/09/2023 12:32 PM [facility] Gross Description 1 pap stained cytospin slide from 10cc pink fluid 12/09/2023 12:32 PM [facility] Microscopic Description Microscopic examination substantiates the final diagnosis. 12/09/2023 12:32 PM [facility] Pathologist Location at [facility] 12/09/2023 12:32 PM [facility] Disclaimer The performance characteristics of all immunohistochemical and indirect immunofluorescence stains (if any) cited in this report were determined by the Histopathology Laboratory of [facility]. Some of these tests rely on the use of analyte-specific reagents and are subject to specific labeling requirements by the [place] Food and Drug Administration. Such tests were developed by the Histology Laboratory of [facility] and have not been cleared or [...] the attending (teaching) pathologist. 12/09/2023 12:32 PM [facility] Embedded Images 12/09/2023 12:32 PM [facility] Pathology/Cytolo gy BODY FLUID SPECIMEN / Unknown Collection / Unknown 12/07/2023 8:21 AM MAINTENANCE PARTS TECHNICIAN 12/07/2023 2:59 PM MAINTENANCE PARTS TECHNICIAN Jose Oliver MD LAB - PATHOLOGY/CY TOLOGY ORDERABLES [facility] [address] [phone] * [employer]ARYN[employer] (12/07/2023 7:47 AM MAINTENANCE PARTS TECHNICIAN) Narrative Jr. Jamey Rodriguez Anes Asst - 12/07/2023 7:47 AM MAINTENANCE PARTS TECHNICIAN Jr. Jamey Rodriguez Anes Asst ? 12/07/2023 [...] HEMOGLOBIN A1C [IN-HOUSE TEST] (11/22/2023 10:36 AM [facility]) Only the most recent of2 resultswithin the time period is included. Hemoglobin A1c 6.4(H) <=5.6 % 11/22/2023 12:05 PM [facility] Estimated Average Glucose 137 mg/dL 11/22/2023 12:05 PM [facility] Comment: HbA1c Interpretation: Normal : < 5.7% Pre-diabetes: 5.7-6.4% Diabetes: Equal to or greater than 6.5% Test results diagnostic of diabetes should be repeated for confirmation. Treatment target values recommended by ADA and other clinical organizations should be used to evaluate metabolic control in patients. Reference: [place] [employer], Standards of Care in Diabetes -2020 In patients 70 years and older consider HbA1c target range of 7.0-7.5% (Reference: Montez Rosas et al. ELLIEDA. 2012) The Sebia assay for the measurement of HbA1c is a National Glycohemoglobin Standardization Program (NGSP) certified method. Blood BLOOD SPECIMEN WITH EDTA / Unknown Lab Venipuncture / Unknown 11/22/2023 10:36 AM MAINTENANCE PARTS TECHNICIAN 11/22/2023 10:42 AM MAINTENANCE PARTS TECHNICIAN Jasmin Gerardo Moore HYDRODYNAMICIST-MARKETING PRODUCTION COORDINATOR LAB - CHEMISTRY ORDERABLES [address] [address] [phone] * CBC W/O DIFFERENTIAL (11/22/2023 10:36 AM MAINTENANCE PARTS TECHNICIAN) Only the most recent of2 resultswithin the time period is included. WBC 9.9 4.0 - 10.7 x10E9/L 11/22/2023 10:54 AM [facility] RBC Count 4.94 3.90 - 5.20 x10E12/L 11/22/2023 10:54 AM [facility] Hemoglobin 13.6 11.9 - 15.8 g/dL 11/22/2023 10:54 AM [facility] Hematocrit 40.8 34.8 - 46.1 % 11/22/2023 10:54 AM [facility] MCV 82.6 80.0 - 98.0 fL 11/22/2023 10:54 AM [facility] MCH 27.5 26.7 - 33.6 pg 11/22/2023 10:54 AM [facility] MCHC 33.3 31.7 - 36.3 g/dL 11/22/2023 10:54 AM [facility] RDW-CV 14.1 11.3 - 14.8 % 11/22/2023 10:54 AM [facility] Platelet Count 260 150 - 420 x10E9/L 11/22/2023 10:54 AM [facility] MPV 10.1 7.8 - 11.4 fL 11/22/2023 10:54 AM [facility] Blood BLOOD SPECIMEN / Unknown Lab Venipuncture / Unknown 11/22/2023 10:36 AM MAINTENANCE PARTS TECHNICIAN 11/22/2023 10:42 AM MAINTENANCE PARTS TECHNICIAN Jasmin Moore HYDRODYNAMICIST-MARKETING PRODUCTION COORDINATOR LAB - HEMATOLOGY ORDERABLES [address] [address] [phone] * CT UROGRAM (10/22/2023 10:10 AM MAINTENANCE PARTS TECHNICIAN) Anatomical Region Laterality Modality Abdomen, Pelvis Computed Tomogra phy 10/22/2023 10:3 5 AM MAINTENANCE PARTS TECHNICIAN Impressions 10/22/2023 10:45 AM MAINTENANCE PARTS TECHNICIAN IMPRESSION: 1. An infiltrative bladder mass on [...] 10/22/2023 10:45 AM Narrative 10/22/2023 10:45 AM MAINTENANCE PARTS TECHNICIAN PROCEDURE: ??CT UROGRAM DATE/TIME OF EXAM: ??10/22/2023 [...] upper quadrant and adjacent to the spleen [id number] mm in maximum dimension. The adrenal glands, [...] CREATININE - POCT INTERFACED (10/22/2023 9:03 AM MAINTENANCE PARTS TECHNICIAN) Creatinine POCT 0.88 0.70 - 1.20 mg/dL 10/22/2023 9:14 AM MAINTENANCE PARTS TECHNICIAN [facility] eGFR 75(L) >=90 mL/min/1.7 3 m2 10/22/2023 9:14 AM MAINTENANCE PARTS TECHNICIAN [facility] Blood BLOOD SPECIMEN / Unknown 10/22/2023 9:03 AM MAINTENANCE PARTS TECHNICIAN 10/22/2023 9:14 AM MAINTENANCE PARTS TECHNICIAN Jose Oliver MD LAB - POINT OF CAR E ORDERABLES [facility] [address] [place] [address] * CYTOLOGY NON-COLLATING 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 (06/02/2023 12:00 PM CDT) Only the most recent of2 resultswithin the time period is included. A Source Bladder wash [facility] A Gross Description [facility] Comment: The specimen is received with multiple patient identifier(s), labeled bladder wash and consists of 20 cc(s) of yellow fluid. One ThinPrep slide prepared and stained with Papanicolaou stain. ??Gross exam(s) performed at: [facility] ??[address] [facility] [address] ??Aitchbone Breaker: MD Ralph PADRON Diagnosis [facility] Comment: Atypical cells present of undetermined significance. Red blood cells present. Atypical urothelial cells present. Suggest clinically appropriate follow up. NO COLLECTION DATE RECEIVED. WE HAVE USED THE DATE THE SPECIMEN WAS RECEIVED BY THIS LABORATORY THE COLLECTION DATE. IF THIS IS INCORRECT, PLEASE CONTACT CLIENT SERVICES. PHONE NUMBER: [phone] Test Performed at: [facility] [address] ??[phone] TERE KO MD 05/29/2023 1:4 4 AM CDT Jose Oliver MD LAB - PATHOLOGY/CY TOLOGY ORDERABLES Performing Organization Address [facility]/State/[facility] Co de Phone Number [facility] [address] [place] [address] * CYTOLOGY NON-COLLATING 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 PANEL (06/02/2023 12:00 PM CDT) Only the most recent of2 resultswithin the time period is included. Clinical Information [facility] Comment: Malignant neoplasm of urinary bladder, unspecified site Pathologist [facility] Comment: Elbert Chawla M.D., Board Certified in Anatomic Pathology and Clinical Pathology [phone] (electronic signature) Report Notes [facility] Comment: Sears portions of this case have been reviewed by one or more pathologists. Test Performed at: [facility] [address] ??[phone] TERE KO MD Pathology/Cytolog y 05/29/2023 1:44 AM CDT Jose Oliver MD LAB - PATHOLOGY/CY TOLOGY ORDERABLES [facility] [address] [place] [address] * ETT LINE PERFORMABLE (01/18/2023 9:30 AM MAINTENANCE PARTS TECHNICIAN) Narrative Jayy Zheng Anes Asst - 01/18/2023 9:30 AM MAINTENANCE PARTS TECHNICIAN Jayy Zheng Anes Asst ? 01/18/2023 ??9:31 AM Endotracheal Tube Placement: ? Patient Location: OR. Intubation Event Date/Time: ??01/18/2023 9:09 AM Procedure: intubation ([id number]). Procedure Section: ?? Sedation: under general anesthesia. [...] * LARYNGEAL MASK AIRWAY (01/18/2023 9:28 AM MAINTENANCE PARTS TECHNICIAN) Narrative Jayy Zheng Anes Asst - 01/18/2023 9:28 AM MAINTENANCE PARTS TECHNICIAN Jayy Zheng Anes Asst ? 01/18/2023 ??9:39 [...] Case Report Surgical Pathology Report ? Case: [id number] ? Authorizing Provider: ??Jose Oliver MD ?Collected: ? 03/23/2022 08:11 AM ? Ordering Location: ? [facility] ? Received: ?03/23/2022 08:51 AM ? Pathologist: ? Kenan Maria MD ? Specimen: ?Bladder Mass, BLADDER TUMOR ? 03/24/2022 4:[address] [facility] Final Diagnosis Urinary bladder, transurethral resection of bladder tumor: 1. Negative for malignancy 2. Acute and chronic inflammation, fibrosis, and dystrophic calcification consistent with biopsy site changes 3. Detrusor muscle present, negative for tumor invasion 03/24/2022 4:[address] [facility] Clinical History Bladder mass 03/24/2022 4:[address] [facility] Gross Description The requisition and specimen are identified with patient's name and date of . Received in formalin, specimen A, bladder tumor aggregate of hawthorne-pink hawthorne soft tissues, 1.5 x 1.5 x 0.3 cm. Entirely submitted in cassette A1. LJ 03/24/2022 4:[address] [facility] Microscopic Description Immunostain for pancytokeratin (control appropriate) is negative for tumor. Residual surface urothelium has repairer and checker maturation. 03/24/2022 4:[address] [facility] Disclaimer All histochemical and/or immunohistochemical results are interpreted with controls that demonstrate appropriate staining reactions before reporting results. Note on use of immunocytochemistry reagents: This test was developed and its performance characteristic determined by [facility], Department of Laboratory Medicine. It has [...] with caution. 03/24/2022 4:30 PM CDT [facility] Embedded Images 03/24/2022 4:30 PM CDT [facility] Pathology/Cytolo gy MASS OF URINARY BLADDER / Unknown 03/23/2022 8:11 AM CDT 03/23/2022 8:51 AM CDT Comment:Pre-op diagnosis: Diagnosis unknown [R69] Jose Oliver MD LAB - PATHOLOGY/AIDAN MUNOZ ORDERABLES [facility] [address] [place], [place] [id number] * ETT LINE PERFORMABLE (03/23/2022 7:46 AM CDT) Narrative Wilfred Delgado APRN-CRNA - 03/23/2022 7:46 AM CDT Wilfred Delgado APRN-CRNA ? 03/23/2022 ??7:46 AM Endotracheal Tube Placement: ? Patient Location: OR. Intubation Event Date/Time: ??03/23/2022 7:40 AM Procedure: intubation ([id number]). Procedure Section: ?? Sedation: under general anesthesia. [...] specific gravity. Appearance TURBID(A) CLEAR [facility] Specific [place] UA 1.027 1.001 - 1.035 [facility] pH UA < OR = 5.0 5.0 - 8.0 [facility] Glucose UA TRACE(A) NEGATIVE [facility] Bilirubin UA NEGATIVE NEGATIVE [facility] Ketone UA NEGATIVE NEGATIVE [facility] Blood UA 3+(A) NEGATIVE [facility] Protein UA 2+(A) NEGATIVE [facility] Nitrite UA NEGATIVE NEGATIVE [facility] Leukocyte UA 2+(A) NEGATIVE [facility] Comment: Test Performed at: [facility] [address] [place] [address] ??[phone] JESSICA MANLEY DO,MPH Urine URINE SPECIMEN OBTAINED BY CLEAN CATCH PROCEDURE / Unknown 03/11/2022 10:45 AM CDT 03/11/2022 10:46 AM CDT Jose Oliver MD LAB - URINALYSIS O RDERABLES [facility] [address] [place] [address] * PATH CONSULT ON REFERRED CASE (02/13/2022 8:57 AM CDT) Final Diagnosis A. Urinary bladder, transurethral resection, (OSC: [id number]; 01/21/2022): - Invasive urothelial cell carcinoma, high-grade - No definitive detrusor muscle seen B. Urinary bladder, left ureteral orifice transurethral resection, (OSC: [id number]; 01/21/2022): - Invasive urothelial cell carcinoma, high-grade - Detrusor muscle present, negative for tumor invasion 02/16/2022 1:52 PM CDT [facility] Microscopic Description and Comment Performed. 02/16/2022 1:52 PM CDT [facility] Clinical History 02/16/2022 1:52 PM CDT [facility] Materials Received Received are 3 slide(s) labeled [id number] along with a copy of the outside pathology report. The materials originate from [facility], Department of Pathology, [address] [place] [address], [address]. All original materials are returned to the referring institution, along with a copy of our final report. 02/16/2022 1:52 PM CDT [facility] Disclaimer The performance characteristics of all immunohistochemical and indirect immunofluorescence stains (if any) cited in this report were determined by the Histopathology Laboratory of [facility]. Some of these tests were developed by [...] attending (teaching) pathologist. 02/16/2022 1:52 PM [facility] Case Report Surgical Pathology Report ? Case: [id number] ? Authorizing Provider: ??Jose Oliver MD ?Collected: ? 02/13/2022 08:57 AM ? Ordering Location: ? [facility] ? Received: ?02/13/2022 08:57 AM ? Pathologist: ? Gian Jay MD ? Specimen: ?Slide Consultation ? 02/16/2022 1:52 PM CDT [facility] Embedded Images 02/16/2022 1:52 PM CDT [facility] Pathology/Cytolo gy SURGICAL PATHOLOGY CONSULTATION AND REPORT ON REFERRED SLIDES PREPARED ELSEWHERE / Unknown 02/13/2022 8:57 AM CDT 02/13/2022 8:57 AM CDT Jose Oliver MD LAB - PATHOLOGY/CY TOLOGY ORDERABLES Performing Organization Address City/State/[facility] Co de Phone Number [facility] [address] [phone] * ECHO COMPLETE W BUBBLE STUDY (12/31/2021 9:47 AM MAINTENANCE PARTS TECHNICIAN) Anatomical Region Laterality Modality Chest Echo 12/31/2021 9:07 AM MAINTENANCE PARTS TECHNICIAN Narrative Procedure Note Campos Fraga MD - 01/08/2022 Hollis Mccall MD ECHOCARDIOGRAPHY RAD IANT * CZGOX-2-QSKNQBHWIRE BLOOD PHENOTYPING PANEL (12/02/2021 10:26 AM MAINTENANCE PARTS TECHNICIAN) Biuqj-3-Uxkvfjlqlu n Phenotype M2M2 12/05/2021 5:33 PM MAINTENANCE PARTS TECHNICIAN [facility] ([facility]) Comment: The patient appears to have a normal phenotype. All M alleles (including subtypes M1, M2, and M3) produce normal serum concentrations of qaqbw-8-olxugcmx inhibitor and are not associated with clinical disease. Caution in interpretation is advised if the patient has been transfused within the previous 21 days. Performed By: [employer] [address] [place] [id number] Aitchbone Breaker: Starr Boswell MD Tgwsj-0-Yvpjnoeswh n 151 90 - 200 mg/dL 12/05/2021 5:33 PM MAINTENANCE PARTS TECHNICIAN [facility] ([facility]) Comment:To convert to umol/L , multiply mg/dL by 0.185 Blood BLOOD SPECIMEN / Unknown Lab Venipuncture / Unknown 12/02/2021 10:26 AM MAINTENANCE PARTS TECHNICIAN 12/02/2021 11:13 AM MAINTENANCE PARTS TECHNICIAN Hollis Mccall MD LAB - CHEMISTRY BASSAM CONTRERAS [facility]) [address] [place], [place] [address] * CKPJL-3-HBFIHIILPHC BLOOD (12/02/2021 10:26 AM [facility]) Dwbok-4-Hkmlxk ypsin 164 90 - 200 mg/dL 12/02/2021 12:30 PM [facility] Blood BLOOD SPECIMEN / Unknown Lab Venipuncture / Unknown 12/02/2021 10:26 AM [facility] 12/02/2021 11:13 AM MAINTENANCE PARTS TECHNICIAN Hollis Mccall MD LAB - CHEMISTRY BASSAM CONTRERAS [facility] [address] [place] [address], [facility] [phone] * LDL CHOLESTEROL DIRECT (12/02/2021 10:26 AM [facility]) Only the most recent of2 resultswithin the time period is included. LDL Direct 95 <100 mg/dL 12/02/2021 12:15 PM [facility] Comment: ATP III Classification of LDL Cholesterol: ?<100 mg/dL: ??Optimal ? 100 - 129 mg/dL: ??Near Optimal/Above Optimal ? 130 - 159 mg/dL: ??Borderline High ? 160 - 189 mg/dL: ??High ?>190 mg/dL: ??Very High Blood BLOOD SPECIMEN / Unknown Lab Venipuncture / Unknown 12/02/2021 10:26 AM MAINTENANCE PARTS TECHNICIAN 12/02/2021 11:31 AM MAINTENANCE PARTS TECHNICIAN Monica Quijano MD LAB - CHEMISTRY ORD ERABLES [facility] [address] [place] [address], [place] [phone] * (ABNORMAL) LIPID PROFILE (12/02/2021 10:26 AM MAINTENANCE PARTS TECHNICIAN) Only the most recent of3 resultswithin the time period is included. Cholesterol Total 209(H) <200 mg/dL 12/02/2021 11:59 AM [facility] HDL 38(L) >40 mg/dL 12/02/2021 11:59 AM [facility] Comment: ATP III Classification of HDL Cholesterol: ? <40 mg/dL: ??Considered a major risk factor. ? >60 mg/dL: ??Considered a negative risk factor. ? LDL Calculated 12/02/2021 11:59 AM [facility] Comment:Calculation of LDL v alue was not performed because triglyceride concentrations greater than 400 mg/dL render the calculated value invalid. For this reason, the LDL Direct assay for measurement of LDL Cholesterol has been performed (per laboratory protocol). Triglycerides 544(H) <150 mg/dL 12/02/2021 11:59 AM [facility] Comment: ATP III Classification of Triglycerides: ?<150 mg/dL: ??Normal ? 150 - 199 mg/dL: ??Borderline High ? 200 - 400 mg/dL: ??High ?>500 mg/dL: ??Very High Blood BLOOD SPECIMEN / Unknown Lab Venipuncture / Unknown 12/02/2021 10:26 AM MAINTENANCE PARTS TECHNICIAN 12/02/2021 11:31 AM MAINTENANCE PARTS TECHNICIAN Monica Quijano MD LAB - CHEMISTRY ORD ERABLES [facility] [address] [place] [address], [place] [phone] * OPH OCT TEST [facility] (12/02/2021 9:29 AM MAINTENANCE PARTS TECHNICIAN) Anatomical Region Laterality Modality Other 12/02/2021 9:29 AM MAINTENANCE PARTS TECHNICIAN Tyrone Zuniga MD [employer] [employer] ORDERABLES * (ABNORMAL) DRUG SCREEN TOX URINE PANEL (IN HOUSE) (10/06/2021 4:17 PM MAINTENANCE PARTS TECHNICIAN) Amphetamines Screen Urine Negative Negative : < 1000 ng/mL 10/06/2021 5:04 PM [facility] Barbiturates Screen Urine Negative Negative : < 200 ng/mL 10/06/2021 5:04 PM [facility] Benzodiazepine Screen Urine Positive(A) Negative : < 200 ng/mL 10/06/2021 5:04 PM [facility] Comment: Positive urine benzodiazepine screening results should be confirmed by another generally accepted non-immunological method such as gas chromatography or mass spectrometry. ? Opiates Urine Positive(A) Negative : < 300 ng/mL 10/06/2021 5:04 PM [facility] Comment:Positive urine opiat e screening results should be confirmed by another generally accepted non-immunological method such as gas chromatography or mass spectrometry. Cocaine Metabolites Urine Negative Negative : < 300 ng/mL 10/06/2021 5:04 PM [facility] Phencyclidine Screen Urine Negative Negative : < 25 ng/ml 10/06/2021 5:04 PM [facility] Cannabinoids Screen Urine Positive(A) Negative : <50 ng/mL 10/06/2021 5:04 PM [facility] Comment:Positive urine canna binoids (THC) screening results should be confirmed by another generally accepted non-immunological method such as gas chromatography or mass spectrometry. Methadone Screen Urine Negative Negative : < 300 ng/mL 10/06/2021 5:04 PM [facility] Fentanyl Screen Urine Negative Negative : <1.0 ng/mL 10/06/2021 5:04 PM [facility] Urine URINE / Unknown Collection / Unknown 10/06/2021 4:17 PM MAINTENANCE PARTS TECHNICIAN 10/06/2021 4:34 PM MAINTENANCE PARTS TECHNICIAN Narrative [facility] - 10/06/2021 5:04 PM MAINTENANCE PARTS TECHNICIAN The Urine Toxicology Screening Panel does not screen for Propoxyphene, Meprobamate, Carisoprodol, Trazodone, afcp-kih-ffucexw medications and/or volatiles (Acetone, Isopropanol, Methanol or Ethylene Glycol). Ethanol, Salicylate, Acetaminophen, Tricyclic Antidepressants and several therapeutic drugs may be individually assayed in serum or plasma specimen. Toxicology testing by the [facility] is an aid to medical diagnosis and treatment of patients. No documented chain of custody was maintained. Results are intended to be used for clinical purposes only. ? Nicole Singletary DO LAB - URINE CHEMISTR Y ORDERABLES Performing Organization Address [facility] de Phone Number [address] [address], [facility] [phone] * TSH REFLEX FREE T4 (10/06/2021 4:00 PM MAINTENANCE PARTS TECHNICIAN) TSH 2.406 0.350 - 4.940 uIU/mL 10/06/2021 5:17 PM MAINTENANCE PARTS TECHNICIAN [facility] Blood BLOOD SPECIMEN / Unknown Lab Venipuncture / Unknown 10/06/2021 4:00 PM MAINTENANCE PARTS TECHNICIAN 10/06/2021 4:34 PM MAINTENANCE PARTS TECHNICIAN Nicole Singletary DO LAB - CHEMISTRY BASSAM CONTRERAS Performing Organization Address [facility] Co de Phone Number [address] [place] [address], [facility] [phone] * VITAMIN D 25-HYDROXY (10/06/2021 4:00 PM MAINTENANCE PARTS TECHNICIAN) [facility] Vitamin D, 25 Hydroxy 30.0 30.0 - 80.0 ng/mL 10/06/2021 5:17 PM MAINTENANCE PARTS TECHNICIAN [facility] Comment: The recommendations for 25-Hydroxy Vitamin [...] Lab Venipuncture / Unknown 10/06/2021 4:00 PM MAINTENANCE PARTS TECHNICIAN 10/06/2021 4:34 PM MAINTENANCE PARTS TECHNICIAN Nicole Singletary DO LAB - CHEMISTRY BASSAM CONTRERAS [address] [address], [facility] [phone] * (ABNORMAL) COMPREHENSIVE METABOLIC PANEL (10/06/2021 4:00 PM MAINTENANCE PARTS TECHNICIAN) [facility] BUN 18 7 - 26 mg/dL 10/06/2021 4:59 PM MAINTENANCE PARTS TECHNICIAN [facility] Creatinine 0.97(H) 0.56 - 0.96 mg/dL 10/06/2021 4:59 PM MAINTENANCE PARTS TECHNICIAN [facility] Sodium 140 136 - 145 mmol/L 10/06/2021 4:59 PM [facility] Potassium 3.5 3.5 - 4.5 mmol/L 10/06/2021 4:59 PM [facility] Chloride 104 98 - 107 mmol/L 10/06/2021 4:59 PM [facility] CO2 27 22 - 29 mmol/L 10/06/2021 4:59 PM [facility] Glucose 124(H) 70 - 115 mg/dL 10/06/2021 4:59 PM [facility] Calcium 9.3 8.4 - 10.2 mg/dL 10/06/2021 4:59 PM [facility] Protein Total 6.7 6.0 - 8.3 g/dL 10/06/2021 4:59 PM [facility] Albumin 3.3(L) 3.4 - 5.0 g/dL 10/06/2021 4:59 PM [facility] Bilirubin Total 0.2 0.2 - 1.2 mg/dL 10/06/2021 4:59 PM [facility] Alkaline Phosphatase 78 40 - 150 U/L 10/06/2021 4:59 PM [facility] ALT 16 5 - 55 U/L 10/06/2021 4:59 PM [facility] AST 11 5 - 34 U/L 10/06/2021 4:59 PM [facility] Anion Gap 13 8 - 18 10/06/2021 4:59 PM [facility] BUN/Creatinine Ratio 19 7 - 23 10/06/2021 4:59 PM [facility] Osmolality Calculated 293 270 - 300 mOsm/kg 10/06/2021 4:59 PM [facility] Albumin/Globulin Ratio 1.0(L) 1.1 - 2.3 10/06/2021 4:59 PM [facility] eGFR by CKD-EPI 64(L) >=90 mL/min/1.7 3 m2 10/06/2021 4:59 PM [facility] Blood BLOOD SPECIMEN / Unknown Lab Venipuncture / Unknown 10/06/2021 4:00 PM MAINTENANCE PARTS TECHNICIAN 10/06/2021 4:34 PM [facility] Nicole Singletary DO LAB - CHEMISTRY BASSAM CONTRERAS [facility] [address] [place] [address], [facility] [phone] * (ABNORMAL) BLOOD GASES ART+COOX POCT (10/06/2021 1:38 PM MAINTENANCE PARTS TECHNICIAN) pH Arterial 7.44 7.35 - 7.45 pH 10/06/2021 1:38 PM [facility] pO2 Arterial 78(L) 80 - 100 mmHg 10/06/2021 1:38 PM [facility] pCO2 Arterial 44 35 - 45 mmHg 1:38 PM [facility] BE Arterial 5.0(H) -2.0 - 2.0 mmol/L 10/06/2021 1:38 PM [facility] Oxyhemoglobin Arterial 91.5 % 10/06/2021 1:38 PM [facility] Dexoyhemoglobin (HHB) % 1.9 % 10/06/2021 1:38 PM [facility] O2 Content Arterial 17.5 Interpret within clinical context mg/dL 10/06/2021 1:38 PM [facility] Hemoglobin by COOX 13.6 12.0 - 15.6 g/dL 10/06/2021 1:38 PM [facility] O2 Saturation Arterial 98 90 - 100 % 10/06/2021 1:38 PM [facility] HCO3 Arterial 30 20 - 30 mmol/l 10/06/2021 1:38 PM [facility] Methemoglobin 0.8 0.0 - 2.0 % 10/06/2021 1:38 PM [facility] Carboxyhemoglobin 5.9(H) 0.0 - 2.0 % 2020 1:38 PM [facility] Comment:Carboxyhemoglobin No rmal Concentration: Non-smokers: 0-2%; Smokers: 0- 9%; Toxic: >20% Blood, arterial ARTERIAL BLOOD SPECIMEN / Unknown 10/06/2021 1:38 PM MAINTENANCE PARTS TECHNICIAN 10/06/2021 1:39 PM [facility] Damian Hager MD LAB - POINT OF CARE ORDERABLES [facility] [address] [place] [address], [facility] [phone] * PFT OXYGEN DESATURATION STUDY (10/06/2021 1:05 PM MAINTENANCE PARTS TECHNICIAN) Impressions Rose Marie Oro MD - 10/06/2021 1:05 PM MAINTENANCE PARTS TECHNICIAN [facility] DEPARTMENT OF PULMONARY, CRITICAL CARE, [...] Marie Oro MD - 10/06/2021 1:05 PM MAINTENANCE PARTS TECHNICIAN Mary Benson MD ? 10/11/2021 ??4:46 PM Damian Hager MD PFT ORDERABLES * SIX MINUTE WALK (10/06/2021 1:05 PM MAINTENANCE PARTS TECHNICIAN) Impressions Rose Marie Oro MD - 10/06/2021 1:05 PM MAINTENANCE PARTS TECHNICIAN [facility] DEPARTMENT OF PULMONARY, CRITICAL CARE, AND SLEEP [...] Marie Oro MD - 10/06/2021 1:05 PM MAINTENANCE PARTS TECHNICIAN Mary Benson MD ? 10/11/2021 ??4:46 PM Damian Hager MD RESPIRATORY THERAPY ORDERABLES * COMPLETE PFT W/WO BRONCHODILATOR (10/06/2021 1:05 PM MAINTENANCE PARTS TECHNICIAN) Impressions Rose Marie Oro MD - 10/06/2021 1:05 PM MAINTENANCE PARTS TECHNICIAN [facility] DEPARTMENT OF PULMONARY, CRITICAL CARE, AND SLEEP [...] of Pulmonary, Critical Care, & Sleep Medicine [facility] I have personally reviewed and intepreted the results of the study and made any necessary edits to the final impression of the fellow. Rose Marie Oro MD Narrative Rose Marie Oro MD - 10/06/2021 1:05 PM MAINTENANCE PARTS TECHNICIAN Mary Benson MD ? 10/11/2021 ??4:46 PM Damian Hager MD RESPIRATORY THERAPY ORDERABLES * CARDIAC PROCEDURE ORDER (11/02/2020 4:17 PM MAINTENANCE PARTS TECHNICIAN) Narrative 11/02/2020 4:17 PM MAINTENANCE PARTS TECHNICIAN Ordered by an unspecified provider. Scanned Document CARDIAC SERVICES ORD ERABLES * CCL CARDIAC CATH LEFT (10/24/2020 10:29 AM MAINTENANCE PARTS TECHNICIAN) Anatomical Region Laterality Modality Chest X-Ray Angiograph y Narrative 11/05/2020 4:10 PM MAINTENANCE PARTS TECHNICIAN [facility] Cardiac Catheterization Procedure Note Patient: Rody Zaidi Age: [age] year old Date of : 1960 Date of Admission: 10/24/2020 Procedure Date: 10/24/20 FELLOW / ASPHALT COATER: Mart [place] ATTENDING PHYSICIAN: Dr. Deven Cook. [...] had chest pain with dyspnea. Coming for [facility] for evaluation. Also reported abnormal test in past but no image or report available. Per outside nuisance wildlife control operator Stress test done in 01/2020 was clinically [...] evaluation, please review the evaluation forms in [facility]. For details on monitored clinical parameters during the intra-service sedation time, please review the procedure nurse documentation in [facility]. Total sedation administered as follows: [...] Deven Gonzalez MD Monica Quijano MD CARDIAC HOME CHILD CARE PROVIDER RA DIANT * VAS CAROTID DUPLEX BILATERAL (10/22/2020 9:27 AM MAINTENANCE PARTS TECHNICIAN) Anatomical Region Laterality Modality Neck Intravascular Ul trasound 10/22/2020 9:04 AM MAINTENANCE PARTS TECHNICIAN Narrative Procedure Note Eric Costa MD - 10/22/2020 Kendrick Tao MD VASCULAR LAB ORDERAB LES * VAS ARTERIAL ANKLE ARM INDEX (10/22/2020 9:03 AM MAINTENANCE PARTS TECHNICIAN) Only the most recent of2 resultswithin the time period is included. Anatomical Region Laterality Modality Ankle / Foot, Upper Extremity In travascular Ultrasound 10/22/2020 8:16 AM MAINTENANCE PARTS TECHNICIAN Narrative Procedure Note Eric Costa MD - 10/22/2020 Ruy Zendejas MD VASCULAR LAB ORDERAB LES * VAS DILEEP ABD DOPPLER AO IVC ILIAC (10/22/2020 9:02 AM MAINTENANCE PARTS TECHNICIAN) Only the most recent of2 resultswithin the time period is included. Anatomical Region Laterality Modality Pelvis, Abdomen Intravascular Ul trasound 10/22/2020 8:27 AM MAINTENANCE PARTS TECHNICIAN Narrative Procedure Note Eric Costa MD - 10/22/2020 Ruy Zendejas MD VASCULAR LAB ORDERAB LES * PT-INR (10/21/2020 8:12 AM MAINTENANCE PARTS TECHNICIAN) Pathologist [facility] [place] INR 1.0 [facility] Comment: Reference Range ? 0.9-1.1 Moderate-intensity Warfarin Therapy 2.0-3.0 Higher-intensity Warfarin Therapy ?? 3.0-4.0 PT 10.1 9.0 - 11.5 sec [facility]ST Comment: For additional information, please refer to http://education.Holidu/faq/IZF326 (This link is being provided for informational/ educational purposes only.) REPORT COMMENT: FASTING:YES Test Performed at: [facility] ??[id number] GISELE JUSTICE MD Blood BLOOD SPECIMEN / Unknown 10/21/2020 8:12 AM MAINTENANCE PARTS TECHNICIAN 10/21/2020 8:14 AM MAINTENANCE PARTS TECHNICIAN Monica Quijano MD LAB - COAGULATION O RDERABLES [address] [address] * CARDIAC EKG ORDER (10/03/2020 12:41 PM MAINTENANCE PARTS TECHNICIAN) Only the most recent of2 resultswithin the time period is included. Narrative 10/03/2020 12:41 PM MAINTENANCE PARTS TECHNICIAN Ordered by an unspecified provider. Scanned Document CARDIAC SERVICES ORD ERABLES * EKG - Clinic Performed (10/01/2020 9:43 AM MAINTENANCE PARTS TECHNICIAN) Monica Quijano MD ECG ORDERABLES * TROPONIN I (09/04/2020 11:24 AM CDT) Pathologist [facility] [place] Troponin I 0.025 <0.032 ng/mL 09/04/2020 12:05 PM CDT [facility] Blood BLOOD SPECIMEN / Unknown Venipuncture / Unknown 09/04/2020 11:24 AM CDT 09/04/2020 11:34 AM CDT Ruy Zendejas MD LAB - CHEMISTRY ORDE RABLES Performing Organization Address [facility] Co de Phone Number [facility] [address] [place] [address], [facility] [phone] * EKG 12-LEAD (09/04/2020 11:16 AM CDT) Ventricular Rate 80 BPM [facility] Atrial Rate 80 BPM [facility] P-R Interval 142 ms [facility] QRS Duration ms 86 ms [facility] Q-T Interval ms 392 ms [facility] QTC Calculation (Bezet) 452 ms SL MUSE Calculated P [place] 70 degrees [facility] Calculated R [place] 50 degrees [facility] Calculated T [place] 34 degrees [facility] Interpretation EKG NORMAL SINUS RHYTHM NORMAL ECG NO PREVIOUS ECGS AVAILABLE Confirmed by Jg Casey ([id number]) on 10/02/2020 11:20:55 AM [facility] M[facility] 09/04/2020 11:1 6 AM CDT 10/02/2020 11:20 AM MAINTENANCE PARTS TECHNICIAN Ruy Zendejas MD ECG ORDERABLES Performing Organization Address [facility] Co de Phone Number [facility] * IR ANGIOGRAM LEFT LEG (09/04/2020 [...] stent placement x2 ATTENDING: Kendrick Tao MD ASPHALT COATER: Ruy Zendejas MD ANESTHESIA: Moderate conscious sedation [...] sheath was then exchanged for a 5 Belgian sheath over the provided J-wire. A Glidewire [...] sheath was then exchanged for a 5 Belgian sheath over a J-wire. A Glidewire and angled glide catheter were then used to attempt crossing the occluded left common iliac artery from below. However, this was initially unsuccessful as it had appeared that the wire and catheter were tracking into a dissection plane in the [place] distal left common iliac artery. Crossing from [...] For increased support, the left groin 5 Belgian sheath was exchanged for a longer 5 Belgian sheath. The back of the Glidewire and [...] was withdrawn and the left groin 5 Belgian sheath was exchanged for a 7 Belgian sheath. In order to prevent jailing of the right common iliac artery and stent, the decision was made to place a balloon in the right common iliac artery and stent with plans to insufflate this in tandem with deployment of the new stent on the left. The wire on the right was exchanged for an Amplatz wire in the right groin 5 Belgian sheath was exchanged for a 6 Belgian sheath. A 9 mm x 40 mm Piseco balloon was then advanced via the right [...] necessitating further intervention. The left groin 7 Belgian sheath was exchanged for a short 7 Belgian sheath. The wires were withdrawn and Mynx [...] stent placement x2 ATTENDING: Kendrick Tao MD ASPHALT COATER: Ruy Zendejas MD ANESTHESIA: Moderate conscious sedation [...] micropuncture sheath was then exchangedfor a 5 Belgian sheath over the provided J-wire. A Glidewire [...] sheath was then exchanged for a 5 Belgian sheath over a J-wire. AGlidewire and angled glide catheter were then used to attempt crossing theoccluded left common iliac artery from below. However, this was initially unsuccessful as it had appeared that the wire and catheter were tracking into a dissection plane in the [place] distal left common iliac artery. Crossing from [...] sheath was exchanged for a longer 5 Belgian sheath. The back of the Glidewire and [...] was withdrawn and the left groin 5 Belgian sheath was exchanged for a 7 Belgian sheath. In order to prevent jailing of theright common iliac artery and stent, the decision was made to place a balloonin the right common iliac artery and stent with plans to insufflate this in tandem with deployment of the new stent on the left. The wire on theright was exchanged for an Amplatz wire in the right groin 5 Belgian sheath was exchanged for a 6 Belgian sheath. A 9 mm x 40 mm Piseco balloon was then advanced via the right [...] necessitating further intervention. The left groin 7 Belgian sheath was exchanged for a short 7 Belgian sheath. The wires were withdrawn and Mynx [...] RIGHT 4VW OR MORE (10/08/2015 8:35 AM MAINTENANCE PARTS TECHNICIAN) Anatomical Region Laterality Modality Lower Extremity Other Impressions 10/08/2015 11:03 AM MAINTENANCE PARTS TECHNICIAN Impression: 1. No acute osseous injury. 2. [...] 11:03 AM . Narrative 10/08/2015 11:03 AM MAINTENANCE PARTS TECHNICIAN Examination: 1. XR KNEE RIGHT 4+ VW [...] LEFT 4VW OR MORE (10/08/2015 8:35 AM MAINTENANCE PARTS TECHNICIAN) Anatomical Region Laterality Modality Lower Extremity Other Impressions 10/08/2015 11:03 AM MAINTENANCE PARTS TECHNICIAN Impression: 1. No acute osseous injury. 2. [...] 11:03 AM . Narrative 10/08/2015 11:03 AM MAINTENANCE PARTS TECHNICIAN Examination: 1. XR KNEE RIGHT 4+ VW [...] . Александр Sanchez MD [facility] Care Teams Worship Leader Relationship Specialty Start Date End Date Matti Balderas MD [address] [place] [phone] PCP - General Family Medicine 10/27/24
--- OUTSIDE RECORDS SUMMARY | 2024-11-12 05:22 | XMS_ITS | Encounter Summary ---
Author Organization [facility] Address [address] [place] [address] Care Team Providers Care Sql Server Dba Developer Name Role Phone Deisi Andrews MD Primary Care Provider [phone] Encounter Details Date Type Department Care Team [...] st Contact Info) Description 01/19/2025 11:30 AM GREENKEEPER Procedure visit [facility] [address] [place] [address] Jose Oliver MD [address] [facility] [address] [facility] [address] documented as of this encounter Goals Goal [...] on filedocumented in this encounter Care Teams Sql Server Dba Developer Relationship Specialty Start Date End Date Deisi Andrews MD [address] [place] [address] [place] [address] PCP - General Family Medicine 05/26/23 10/26/24 documented as of this encounter
--- OUTSIDE RECORDS SUMMARY | 2024-11-12 05:22 | XMS_ITS | Encounter Summary ---
Author Organization [facility] Address [address] [place] [address] Care Team Providers Care Open Source Developer Name Role Phone Deisi Andrews MD Primary Care Provider [phone] Reason for Visit * Reason Comments Follow-up bcg Encounter Details Date Type Department Care Team ([facility] Contact Info) Description 08/25/2024 11:00 AM CDT Clinical Support [facility] [address] [place] [address] [address] [place] [address] Jose Oliver MD [address] [place] [address] Malignant neoplasm of urinary bladder, unspecified site [...] st Contact Info) Description 01/19/2025 11:30 AM END LATHE OPERATOR Procedure visit [facility]rology [address] [place] [address] Jose Oliver MD [address] [place] [address] documented as of this encounter Goals Goal [...] Wall documented in this encounter Care Teams Open Source Developer Relationship Specialty Start Date End Date Deisi Andrews MD [address] [place] [address] [place] [address] PCP - General Family Medicine 05/26/23 10/26/24 documented as of this encounter
--- OUTSIDE RECORDS SUMMARY | 2024-11-12 05:22 | XMS_ITS | Encounter Summary ---
Author Organization [facility] Health Address [address] [facility] [place] [address] Care Team Providers Care Medicaid Service Coordinator Name Role Phone Deisi Andrews MD Primary Care Provider [phone] Encounter Details Date Type Department Care Team (Late st Contact Info) Description 08/18/2024 11:00 AM CDT Clinical Support [facility] [address] [place] [address] [address] [place] [address] Jose Oliver MD [address] [place] [address] Malignant neoplasm of urinary bladder, unspecified site [...] st Contact Info) Description 01/19/2025 11:30 AM SAWYER HELPER Procedure visit [facility] Urology [address] [place] [address] [address] [place] [address] Jose Oliver MD [address] [place] [address] documented as of this encounter Goals Goal [...] neg [facility] [address] Specific [place] UA 1.[address] [facility] [address] Blood [...] [facility] [address] [place] [address], [facility] [phone] documented in this encounter Visit Diagnoses Diagnosis Malignant neoplasm of urinary bladder, unspecified site (HCC)- Primary documented in this encounter Administered Medications Inactive Administered Medications - up to 3 most recent administrations Medication Order MAR Action Action Date Dose Rate Site bcg live ([place] Bcg) injection 25 mL 25 mL, Bladder Instillation, ONCE, 1 dose, On Wed08/18/24 at 1445, For bladder irrigation, dose should be retained for 2 hours (patient should reposition every 15 mintues), then voided, during the first 24 hours after instillation, patient should sit while voiding $ Given 08/18/2024 2:18 PM CDT 25 mL documented in this encounter Care Teams Medicaid Service Coordinator Relationship Specialty Start Date End Date Deisi Andrews MD [address] [place] [address] PCP - General Family Medicine 05/26/23 10/26/24 documented as of this encounter
--- OUTSIDE RECORDS SUMMARY | 2024-11-12 05:22 | XMS_ITS | Encounter Summary ---
Author Organization [facility] Health Address [address] [facility] [place] [address] Care Team Providers Care Engine Wiper Name Role Phone Deisi Andrews MD Primary Care Provider [phone] Encounter Details Date Type Department Care Team (Late st Contact Info) Description 08/04/2024 11:00 AM CDT Clinical Support [facility] [address] [place] [address] [address] [place] [address] Jose Oliver MD [address] [place] [address] Malignant neoplasm of urinary bladder, unspecified site [...] st Contact Info) Description 01/19/2025 11:30 AM APPRAISAL TECHNICIAN Procedure visit [facility] [address] [place] [address] Jose Oliver MD [address] [place] [address] documented as of this encounter Goals Goal [...] - [facility] [address] Specific [place] UA 1.[address] [facility] [address] Blood [...] - POINT OF CAR E ORDERABLES [facility] [address] [facility] [address] [place] [address], [facility] [phone] documented in this encounter Visit Diagnoses Diagnosis Malignant neoplasm of urinary bladder, unspecified site (HCC)- Primary documented in this encounter Care Teams Engine Wiper Relationship Specialty Start Date End Date Deisi Andrews MD [address] [place] [address] [place] [address] PCP - General Family Medicine 05/26/23 10/26/24 documented as of this encounter
--- OUTSIDE RECORDS SUMMARY | 2024-11-12 05:22 | XMS_ITS | Encounter Summary ---
Author Organization [facility] Address [address] [facility] [place] [address] Care Team Providers Care Fabrication Supervisor Name Role Phone Deisi Andrews MD Primary Care Provider [phone] Encounter Details Date Type Department Care Team [...] st Contact Info) Description 01/19/2025 11:30 AM ECHO VASC TECH Procedure visit [facility] [address] [facility] [facility] [address] [place] [address] Jose Oliver MD [address] [facility] [address] [facility] [place] [address] documented as of this encounter Goals Goal [...] on filedocumented in this encounter Care Teams Fabrication Supervisor Relationship Specialty Start Date End Date Deisi Andrews MD [address] [place] [address] [place] [address] PCP - General Family Medicine 05/26/23 10/26/24 documented as of this encounter
--- OUTSIDE RECORDS SUMMARY | 2024-11-12 05:22 | XMS_ITS | Encounter Summary ---
Author Organization [facility] Address [address] [place] [address] Care Team Providers Care Directional Survey Drafter Name Role Phone Deisi Andrews MD Primary Care Provider [phone] Encounter Details Date Type Department Care Team [...] st Contact Info) Description 01/19/2025 11:30 AM POLISHING WHEEL REPAIRER Procedure visit [facility] [address] [facility] [address] [place] [address] Jose Oliver MD [address] [facility] [address] [facility] [place] [address] documented as of this encounter Goals Goal [...] on filedocumented in this encounter Care Teams Directional Survey Drafter Relationship Specialty Start Date End Date Deisi Andrews MD [address] [place] [address] [place] [address] PCP - General Family Medicine 05/26/23 10/26/24 documented as of this encounter
--- OUTSIDE RECORDS SUMMARY | 2024-11-12 05:22 | XMS_ITS | Encounter Summary ---
Author Organization [facility] Address [address] [facility] [place] [address] Care Team Providers Care Compensation And Benefits Administrator Name Role Phone Matti Balderas MD Primary Care Provider [phone] Reason for Visit * Reason Comments Follow-up CYSTO - Malignant ne oplasm of urinary bladder Encounter Details Date Type Department Care Team (Late st Contact Info) Description 10/27/2024 1:30 PM OAK TANNER Procedure visit [facility] Urology [address] [place] [address] [address] [place] [address] Jose Oliver MD [address] OF UROLOGIC [place] [address] Malignant neoplasm of urinary bladder, unspecified site [...] Comments Blood Pressure 84/54 10/27/2024 2:11 PM OAK TANNER Pulse 78 10/27/2024 2:11 PM OAK TANNER Temperature 36.2 ??C (97.2 ??F) 10/27/2024 2:11 PM CS T Respiratory Rate 18 10/27/2024 2:11 PM OAK TANNER Oxygen Saturation 96% 10/27/2024 2:11 PM OAK TANNER Inhaled Oxygen Concentration - - Weight - - Height 160 cm (5' 3 ) 10/27/2024 2:11 PM OAK TANNER Body Mass Index - - documented in [...] of this encounter Progress Notes * Jose Olivre MD - 10/27/2024 3:23 PM CST See procedure TANNER documented in this encounter Procedure Notes * [...] for years 3 and4, then annually thereafter TANNER documented in this encounter Plan of Treatment Upcoming Encounters Date Type Department Care Team (Late st Contact Info) Description 01/19/2025 11:30 AM OAK TANNER Procedure visit [facility] Urology [address] [place] [address] Jose Oliver MD [address] OF UROLOGIC [place] [address] documented as of this encounter Goals Goal [...] CARE (AMB) [facility] Routine 10/27/2024 2:13 PM OAK TANNER Malignant neoplasm of urinary bladder, unspecified site (HCC) documented in this encounter Results * URINALYSIS AUTO - POINT OF CARE (AMB) [facility] (10/27/2024 2:13 PM OAK TANNER) Glucose UA neg [facility] [address] Bilirubin UA POCT neg [facility] [address] Ketones UA POCT neg [facility] [address] Specific [place] UA 1.[address] [facility] [address] Blood Urine POCT neg [facility] [address] pH UA 5.[address] [facility] [address] Protein UA neg [facility] [address] Urobilinogen UA 0.2 [facility] [address] Nitrite UA neg [facility] [address] WBC UA neg [facility] [address] Urine URINE / Unknown 10/27/2024 2 :13 PM OAK TANNER Jose Oliver MD LAB - POINT OF CAR E ORDERABLES [facility] [address] [place] [address], [facility] [phone] documented in this encounter Visit Diagnoses Diagnosis Malignant neoplasm of urinary bladder, unspecified site (HCC)- Primary documented in this encounter Care Teams Compensation And Benefits Administrator Relationship Specialty Start Date End Date Matti Balderas MD [address] [place], [place] [phone] PCP - General Family Medicine 10/27/24 documented as of this encounter
--- OUTSIDE RECORDS SUMMARY | 2024-11-12 05:22 | XMS_ITS | Encounter Summary ---
Author Organization [facility] Health Address [address] [facility] [place] [address] Care Team Providers Care Septic Pump Truck Driver Name Role Phone Deisi Andrews MD Primary Care Provider [phone] Reason for Visit * Reason Comments Establish Care [facility] Encounter Details Date Type Department Care Team ([facility] Contact Info) Description 09/15/2024 11:30 AM CDT Clinical Support [facility] [address] [place] [address] [address] [place] [address] Jose Oliver MD [address] [place] [address] Malignant neoplasm of urinary bladder, unspecified site [...] st Contact Info) Description 01/19/2025 11:30 AM WHITE LEAD FILTERER Procedure visit [facility] [address] [place] [address] Jose Oliver MD [address] [place] [address] documented as of this encounter Goals Goal [...] - [facility] [address] Specific [place] UA 1.[address] [facility] [address] Blood [...] OF CAR E ORDERAB[place] [address], [facility] [phone] documented in this encounter Visit Diagnoses Diagnosis Malignant neoplasm of urinary bladder, unspecified site (HCC)- Primary documented in this encounter Administered Medications Inactive Administered Medications - up to 3 most recent administrations Medication Order MAR Action Action Date Dose Rate Site bcg live ([place] Bcg) injection 50 mg 50 mg, Bladder Instillation, ONCE, 1 dose, On Wed09/15/24 at 1245, For bladder irrigation, dose should be retained for 2 hours (patient should reposition every 15 mintues), then voided, during the first 24 hours after instillation, patient should sit while voiding $ Given 09/15/2024 12:34 PM CDT 50 mg documented in this encounter Care Teams Septic Pump Truck Driver Relationship Specialty Start Date End Date Deisi Andrews MD [address] [place] [address] [place] [address] PCP - General Family Medicine 05/26/23 10/26/24 documented as of this encounter
--- OUTSIDE RECORDS SUMMARY | 2024-11-12 05:22 | XMS_ITS | Clinical Summary ---
Author Organization [email or web address] Address [address] [place] [address] Care Team Providers Care Sports Attorney Name Role Phone Matti Balderas MD Primary Care Provider [phone] Source Comments [email or web address],non-owned Affiliates and Associated Physician Practices is amultiple site organization consisting of ambulatory clinics and hospital sitesin [place], [place], [place] and [place]. This disclosure is being madepursuant to the Care Everywhere program and may not contain all information available regarding this patient. Last updated 18.[email or web address] Allergies Active Allergy Reactions Criticality Noted Date [...] meal 12/27/2016 Active vitamin D, ergocalciferol, (DRISDOL) 07582 UNITS capsule Take 1 (one) capsule by [...] patchIndications:MDD (recurrent major depressive disorder) in remission ([facility]) Apply 1 (one) patch to skin once daily 30 patch 2 06/19/2024 Active nicotine (Nicotrol) 10 MG inhalerIndications:M DD (recurrent major depressive disorder) in remission ([facility]) Inhale 10 mg by mouth as [...] lignant neoplasm of urinary bladder, unspecified site ([facility] [...] Problem Noted Date Diagnosed Date CAD in [place] artery 10/24/2020 MDD (recurrent major depressive disorder) [...] Department Care Team Description 10/27/2024 1:30 PM METAL WASHING 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 Procedure visit [facility] [address] [place] [address] [address] [place] [address] Jose Oliver MD Malignant neoplasm of urinary bladder, unspecified site (HCC) 10/27/2024 Travel 09/19/2024 Travel 09/15/2024 11:30 AM CDT Clinical Support [facility] Urology [address] [place] [address] [address] [place] [address] Jose Oliver MD Malignant neoplasm of urinary bladder, unspecified site ([facility]) 09/15/2024 Travel 09/13/2024 Travel 09/13/2024 Telephone [facility] - Centralized Scheduling [address] [place] [address] Jose Oliver MD Med Question; Appointment 09/11/2024 Travel 09/08/2024 10:30 AM CDT Clinical Support [facility] [address] [place] [address] [address] [place] [address] Melissa Rolon, HEAT TREAT PULLER-SLEEVE PRESSER OPERATOR Asymptomatic microscopic hematuria 09/08/2024 Orders Only [facility] [address] [place] [address] [address] [place] [address] Melissa Rolon, HEAT TREAT PULLER-SLEEVE PRESSER OPERATOR 09/08/2024 Travel 09/01/2024 11:00 AM CDT Clinical Support [facility] [address] [place] [address] [address] [place] [address] Jose Oliver MD Malignant neoplasm of urinary bladder, unspecified site ([facility]) ; Bladder spasms; Urinary frequency 09/01/2024 Travel 08/25/2024 11:00 AM CDT Clinical Support [facility] [address] [place] [address] [address] [place] [address] Jose Oliver MD Malignant neoplasm of urinary bladder, unspecified site ([facility]) 08/25/2024 Travel 08/18/2024 11:00 AM CDT Clinical Support [facility] [address] [place] [address] [address] [place] [address] Jose Oliver MD Malignant neoplasm of urinary [...] Comments Blood Pressure 84/54 10/27/2024 2:11 PM METAL WASHING 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 Pulse 78 10/27/2024 2:11 PM METAL WASHING 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 Temperature 36.2 ??C (97.2 ??F) 10/27/2024 2:11 PM CS T Respiratory Rate 18 10/27/2024 2:11 PM METAL WASHING 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 Oxygen Saturation 96% 10/27/2024 2:11 PM METAL WASHING 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 Inhaled Oxygen Concentration 21% 06/21/2024 8 :20 AM CDT Weight 83.9 kg (185 lb) 09/19/2024 9:51 AM METAL WASHING 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 Height 160 cm (5' 3 ) 10/27/2024 2:11 PM METAL WASHING 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 Body Mass Index 32.77 09/15/2024 11:54 AM CDT Plan of Treatment Upcoming Encounters Date Type Department Care Team (Late st Contact Info) Description 01/19/2025 11:30 AM METAL WASHING 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 Procedure visit [facility] [address] [place] [address] [address] [place] [address] Jose Oliver MD [address] [place] [address] Health Maintenance Due Date Last Done Comments [...] last dose Medical Devices Implanted Type Area Shower Attendant Device Identifier Shelf Expiration Date Model / Serial / Lot Stent Trchbr 10mm 7fr 38mm 80cm Cvr Cath Implanted:Qty: 1 on 09/04/2020 by Jose A Clark MD at [facility] N/A: Abdomen [employer] 04/05/2023 [id number] / / [id number] Stent Trchbr 8mm 7fr 38mm 80cm Cvr Cath Implanted:Qty: 1 on 09/04/2020 by Jose A Clark MD at [facility] N/A: Abdomen [employer] 05/22/2023 [id number] / / [id number] Procedures Procedure Name Priority Date/Time Associated Diagnosis Comments URINALYSIS AUTO - POINT OF CARE (AMB) [facility] Routine 10/27/2024 2:13 PM METAL WASHING 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 Malignant neoplasm of urinary bladder, [...] CDT HEMOGLOBIN A1C Routine 11/22/2023 10:36 AM METAL WASHING 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 Pre-op exam from Last 3 Months or Most Recently Relevant to Health Maintenance Results * URINALYSIS AUTO - POINT OF CARE (AMB) [facility] (10/27/2024 2:13 PM METAL WASHING 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) Only the most recent of5 resultswithin the time period is included. Glucose UA neg [facility] [address] Bilirubin UA POCT neg [facility] [address] Ketones UA POCT neg [facility] [address] Specific [place] UA 1.[address] [facility] [address] Blood Urine POCT neg [facility] [address] pH UA 5.5 [facility] [address] Protein UA neg [facility] [address] Urobilinogen UA 0.2 [facility] [address] Nitrite UA neg [facility] [address] WBC UA neg [facility] [address] Urine URINE / Unknown 10/27/2024 2 :13 PM METAL WASHING 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 Jose Oliver MD LAB - POINT OF CAR E ORDERABLES [facility] [address] [place] [address], [facility] [phone] * CULTURE URINE (09/08/2024) Culture [facility] Comment: ??CULTURE, URINE, ROUTINE ?Micro Number: ?[id number] ??Test Status: ? Final ??Specimen Source: ?? Urine ??Specimen Quality: ??Adequate ??Result: ?Mixed genital unruly isolated. These superficial ? bacteria are not indicative of a urinary tract ? infection. No further organism identification is ? warranted on this specimen. If clinically ? indicated, recollect clean-catch, mid-stream ? urine and transfer immediately to Urine Culture ? Transport Tube. Test Performed at: [facility] ??[id number] GISELE JUSTICE MD 09/08/2024 09/09/2024 1:3 2 AM CDT Melissa T Rolon HEAT TREAT PULLER-SLEEVE PRESSER OPERATOR LAB - MICROBIOL OGY ORDERABLES [facility] [address] [place] [address] * BASIC METABOLIC PANEL (CALCIUM TOTAL) (06/28/2024 3:17 PM CDT) BUN 15 7 - 26 mg/dL 06/28/2024 3:51 PM T [facility] Creatinine 0.69 0.56 - 0.96 [...] 8.4 - 10.2 mg/dL 06/28/2024 3:51 PM [facility] Anion Gap 9 6 - 16 06/28/2024 3:51 PM [facility] BUN/Creatinine Ratio 22 7 - 23 06/28/2024 3:51 PM [facility] Osmolality Calculated 287 275 - 295 mOsm/kg 06/28/2024 3:51 PM [facility] eGFR by CKD-EPI >90 >=90 mL/min/1.7 3 m2 06/28/2024 3:51 PM [facility] Blood BLOOD SPECIMEN / Unknown Venipuncture / Unknown 06/28/2024 3:17 PM CDT 06/28/2024 3:26 PM CDT Martir Choi MD LAB - CHEMISTRY BASSAM CONTRERAS [facility] [address] [place] [address], [facility] [phone] * (ABNORMAL) HEMOGLOBIN A1C [IN-HOUSE TEST] (11/22/2023 10:36 AM [facility]) Hemoglobin A1c 6.4(H) <=5.6 % 11/22/2023 12:05 PM [facility] Estimated Average Glucose 137 mg/dL 11/22/2023 12:05 PM [facility] Comment: HbA1c Interpretation: Normal : < 5.7% Pre-diabetes: 5.7-6.4% Diabetes: Equal to or greater than 6.5% Test results diagnostic of diabetes should be repeated for confirmation. Treatment target values recommended by ADA and other clinical organizations should be used to evaluate metabolic control in patients. Reference: [place] Diabetes Association, Standards of Care in Diabetes -2020 In patients 70 years and older consider HbA1c target range of 7.0-7.5% (Reference: Montez Rosas et al. JAMDA. 2012) The Sebia assay for the measurement of HbA1c is a National Glycohemoglobin Standardization Program (NGSP) certified method. Blood BLOOD SPECIMEN WITH EDTA / Unknown Lab Venipuncture / Unknown 11/22/2023 10:36 AM METAL WASHING 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 11/22/2023 10:42 AM [facility] Jasmin Moore HEAT TREAT PULLER-SLEEVE PRESSER OPERATOR LAB - CHEMISTRY ORDERABLES [place] [address] [place] [address], [facility] [phone] from Last 3 Months or Most Recently Relevant to Health Maintenance Advance Directives * Full Code (Latest Code Status on File) Date Activated Date Inactivated Comments 10/24/2020 10:10 AM 10/24/2020 6:00 PM Care Teams Sports Attorney Relationship Specialty Start Date End Date Matti Balderas MD [address] [place], [place] [address] PCP - General Family Medicine 10/27/24
--- OUTSIDE RECORDS SUMMARY | 2024-11-12 05:23 | XMS_ITS | Encounter Summary ---
Author Organization [facility] [employer] Address [address] [place] [address] Care Team Providers Care Lead Manufacturing Engineer Name Role Phone Deisi Andrews MD Primary Care Provider [phone] Reason for Visit * Auth/Cert (Routine) Specialty Diagnoses / Procedures Referred By Nacho brooks Referred To Contact Diagnoses Other hydronephrosis Other hydronephrosis Procedures NJ CYSTOURETHROSCOPY,URETER CATHETER NJ CYSTOSCOPY,DIL URETHRAL STRICTURE NJ CYSTOSCOPY,INSERT URETERAL STENT CYSTOSCOPY WITH RETROGRADE PYELOGRAM CYSTOSCOPY DILATION URETHRA (WITH/WITHOUT MEATOTOMY) CYSTOSCOPY WITH INSERTION URETERAL STENT Referral ID Status Reason Start Date Expiration Date Visits Re quested Visits Authorized [id number] 1 1 Encounter Details Date Type Department Care Team (Late Contact Info) Description 01/17/2024 7:30 AM SPICE GRINDER - 01/17/2024 8:45 AM SPICE GRINDER Surgery [facility] [address] [place] [address] Jose Oliver MD [address] [facility] 2L DIV OF UROLOGIC [place] [address] Cystoscopy, left retrograde pyelogram, bladder biopsy Surgery Details Date/Time Status Location OR Service Patient Class Case Class Case Type Trauma Case? 01/17/2024 7:30 AM Posted [facility] OR OR Urology Surgery Day Care Elective [...] Comments Blood Pressure 107/75 01/17/2024 8:45 AM SPICE GRINDER Pulse 55 01/17/2024 8:45 AM SPICE GRINDER Temperature 36.1 ??C (97 ??F) 01/17/2024 8:20 AM SPICE GRINDER Respiratory Rate 18 01/17/2024 8:45 AM SPICE GRINDER Oxygen Saturation 96% 01/17/2024 8:45 AM SPICE GRINDER Inhaled Oxygen Concentration 40% 01/17/2024 8 :20 AM SPICE GRINDER Weight 81.7 kg (180 lb 3.2 oz) 01/17/2024 5:43 A M SPICE GRINDER Height 160 cm (5' 3 ) 01/17/2024 5:43 AM SPICE GRINDER Body Mass Index 31.92 01/17/2024 5:43 AM SPICE GRINDER documented in this encounter Functional Status Functional [...] Mariana Zamora MD - 01/17/2024 8:23 AM SPICE GRINDER Images from the original note were not included. [facility] Urology You had a procedure called [...] are scheduled for lasix renal scan at [facility] on April 20 at 9AM. You are scheduled to follow up with Dr Oliver on WednesdayApril 21 with clinic cystoscopy at 9:45 AM.If you need to cancel or reschedule the appointment please call [phone]. The [facility] is located at [address] [place] [address], [address], [place] [address]. The phone number to clinic is [phone] if you need to cancel or re-schedule. Please arrive 15 minutes early. Post Operative Pain Control: - You can take Tylenol (acetaminophen) and Motrin (Ibuprofen) in alternating fashion every 4-6 hours, especially in the first 24-48 hours after surgery, then as needed thereafter. - You may also be prescribed narcotic pain medication such as Oxycodone, Marengo, or Tramadol. This should be taken as needed for severe pain only. Do not drink alcohol, drive, or operate heavy machinery while taking this type of medication. If the narcotic is Marengo, please understand that Marengo has Tyelonol in it. If you are [...] surgery or the recovery process, please contact [facility] Urology [phone] (Option #1: scheduling, Option #2 Nurse line, Option #3 surgery scheudler, Option#4 administration) on weekdays during regular business hours. If you have an urgent or emergent question on a weekend or after regular business hours, please contact [facility] Hospital at [phone] and ask for the provider production associate for Urology. In addition, please contact us [...] the touch, or non-clear, foul-smelling drainage) E GRINDER documented in this encounter Medications at Time of Discharge Medication Sig Dispensed Refills Start Date End Date albuterol (PROVENTIL;VENTOLIN) (2.5 MG/3ML) 0.083% nebulizer solution Inhale 2.5 (two and one-half) mg by mouth every 4 hours as needed for Shortness of Breath 75 mL 11/03/2021 albuterol HFA (PROAIR HFA) 108 (90 Base) MCG/ACT inhalerIndications:Sta ge 2 moderate COPD by GOLD classification ([facility]) Inhale 2 (two) puffs by [...] 12 hours 10/28/2023 vitamin D, ergocalciferol, (DRISDOL) 56393 UNITS capsule Take 1 (one) capsule by mouth every 7 days 01/29/2019 acetaminophen (TYLENOL) 325 MG tablet Take 2 (two) tablets by mouth every 6 hours as needed for Fever or Pain Maximum allowable Acetaminophen amount = 4 Grams (4000 mg) / 24 hours. 60 tablet 03/23/2022 06/21/2024 HYDROcodone-acetaminop hen (Marengo) 5-325 MG tabletIndications:Othe r hydronephrosis Take 1 (one) tablet by mouth every 6 hours as needed for Pain 4 tablet 01/17/2024 02/16/2024 LORazepam (Ativan) 0.5 MG tablet Take 1 (one) tablet by mouth 3 times daily as needed for Anxiety 90 tablet 01/14/2024 02/14/2024 oxyBUTYnin CR 24hr (Ditropan XL) 15 MG tabletIndications:Anastasiya gnant neoplasm of urinary bladder, unspecified site ([facility]),Bladder spasms,Urinary frequency Take 1 (one) tablet by mouth once daily 90 tablet 4 11/01/2023 09/01/2024 pantoprazole EC (PROTONIX) 40 MG tabletIndications:need follow up visit for further [phone] option 1 Take 1 (one) tablet by mouth once daily Reasons: need follow up visit for further [phone] option 1 90 tablet 3 01/23/2022 06/15/2024 Symbicort 160-4.5 MCG/ACT inhalerIndications:Sta ge 2 moderate COPD by GOLD classification ([facility]) INHALE 2 PUFFS BY MOUTH [...] List Diagnosis Date Noted ??? CAD in [place] artery 10/24/2020 Priority: Not Prioritized ??? PAD (peripheral artery disease) ([facility]) Priority: Not Prioritized ??? MDD (recurrent major depressive disorder) in remission ([facility]) 08/05/2018 Priority: Not Prioritized ??? GIOVANNY [...] OTHER SURGERY excision of anal warts ??? NJ FOOT/TOES SURGERY PROC UNLISTED ??? TRANS URETHRAL [...] IN EACH NOSTRIL ONCE DAILY ??? HYDROcodone-acetaminophen (Marengo) 5-325 MG tablet Take 1 (one) tablet [...] Reasons: need follow up visit for further [phone] option 1 (Patient not taking: Reported on 01/17/2024) 90 tablet 3 ??? sotalol (Betapace) 80 MG tablet Take 1.5 (one and one-half) tablets by mouth every 12 hours ??? Symbicort 160-4.5 MCG/ACT inhaler INHALE 2 PUFFS BY MOUTH TWICE DAILY (Patient not taking: Reported on 01/06/2024) 10.2 g 0 ??? 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 Lab results smartLinks are not currently [...] Argueta MD Urology Resident 01/17/2024 6:25 AM E GRINDER documented in this encounter OR Notes * [...] Kenan Argueta MD - Resident - Assisting Combat Systems Operator(s): Mariana Zamora MD Anesthesia Type: MAC Complications: [...] in log * Kenan Argueta MD E GRINDER * Operative - Kenan Argueta MD - [...] widely patent and able to accommodate a 5-Paraguayan open-ended catheter easily. Retrograde pyelogram demonstrating mild [...] normal sterile fashion.Timeout was then performed. A 22-Paraguayan rigid cystoscope was used to enter the [...] cannulated the left ureteral orifice with a 5-Paraguayan open-ended catheter rather easily. Contrast was injected. [...] pathology results. MD Jose Calderon MD JO/ralf .[id number] .[id number] Doc ID: [id number] Voice Job ID: [id number] E GRINDER Associated attestation - Jose Oliver MD - 01/17/2024 10:07 AM SPICE GRINDER I was present for the entire procedure. documented in this encounter Plan of Treatment Upcoming Encounters Date Type Department Care Team (Late st Contact Info) Description 01/19/2025 11:30 AM SPICE GRINDER Procedure visit [facility] Urology [address] [place] [address] [address] [place] [address] Jose Oliver MD [address] OF [place]OLOGIC [place] [address] documented as of this encounter Goals Goal [...] FL CYSTO SURGERY Routine 01/17/2024 7:04 PM SPICE GRINDER Other hydronephrosis GLUCOSE - POINT OF CARE Routine 01/17/2024 8:30 AM SPICE GRINDER PATHOLOGY TISSUE Routine 01/17/2024 8:11 AM SPICE GRINDER Other hydronephrosis NJ CYSTOURETHROSCOP Y,URETER CATHETER 01/17/2024 7:44 AM SPICE GRINDER Other hydronephrosis Case Notes Reviewed 01/12 GLUCOSE - POINT OF CARE Routine 01/17/2024 6:02 AM SPICE GRINDER documented in this encounter Results * NM [...] kidney. > Dictated by Margi Brooke MD (Manager Family) 04/20/2024 9:43 AM I, Samira Tariq DO have personally reviewed and interpreted this examination/study. > Interpreting Provider: Samira Tariq DO on 04/20/2024 3:39 PM Narrative 04/20/2024 3:39 PM CDT PROCEDURE: ??NM RENAL SCAN W DRUG, DATE/TIME OF EXAM: ??04/20/2024 9:58 AM, LOCATION ??[facility] INDICATION: N13.39: Other hydronephrosis [...] DATE/TIME OF EXAM: 04/20/2024 9:58 AM, LOCATION [facility] INDICATION: N13.39: Other hydronephrosis [...] kidney. > Dictated by Margi Brooke MD (Manager Family) 04/20/2024 9:43 AM I, Samira Tariq DO have personally reviewed and interpreted this examination/study. > Interpreting Provider: Samira Tariq DO on 04/20/2024 3:39 PM Jose Oliver MD NM ORDERABLES * FL CYSTO SURGERY (01/17/2024 7:04 PM SPICE GRINDER) Narrative [facility] - 01/17/2024 7:04 PM SPICE GRINDER Fluoroscopy was used for this exam in the OR. Please see the Operative report. Jose Oliver MD FLUOROSCOPY ORDERA BLES [facility] * (ABNORMAL) GLUCOSE - POINT OF CARE (01/17/2024 8:30 AM SPICE GRINDER) Glucose WB/POC 128(H) 70 - 115 mg/dL 01/17/2024 8:34 AM SPICE GRINDER [facility] Specimen Type Cap Fingerstick 2023 8:34 AM SPICE GRINDER [facility] Blood BLOOD SPECIMEN / Unknown 01/17/2024 8:30 AM SPICE GRINDER 01/17/2024 8:34 AM SPICE GRINDER Jose Oliver MD LAB - POINT OF CAR E ORDERABLES [facility] [address] [address], [facility] [phone] * PATHOLOGY TISSUE (01/17/2024 8:11 AM SPICE GRINDER) Case Report Surgical Pathology Report ? Case: [id number] ? Authorizing Provider: ??Jose Oliver MD ?Collected: ? 01/17/2024 08:11 AM ? Ordering Location: ? [facility] ?Received: ?01/17/2024 09:50 AM ? Pathologist: ? Nicole Glaser MD ? Specimen: ?Bladder Biopsy, bladder biopsy ? 01/18/2024 12:34 PM [facility] Final Diagnosis Bladder, biopsy (A): - Benign urothelial mucosa with submucosal chronic inflammation - Muscularis propria not present 01/18/2024 12:34 PM [facility] Microscopic Description and Comment Microscopic examination substantiates the final diagnosis. 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 01/18/2024 12:34 PM [facility] Gross Description The requisition and specimen(s) are identified with the patient's name, Arnold Cruz. Received in formalin, specimen A , is a single pink biopsy, 0.5 x 0.4 x 0.3 cm, submitted in toto in cassette A1. GW 01/18/2024 12:34 PM [facility] Pathologist Location at [facility] 01/18/2024 12:34 PM [facility] Disclaimer The performance characteristics of all immunohistochemical and indirect immunofluorescence stains (if any) cited in this report were determined by the Histopathology Laboratory of [facility]. Some of these tests were developed by [...] the attending (teaching) pathologist. 01/18/2024 12:34 PM SPICE GRINDER [facility] Embedded Images 01/18/2024 12:34 PM SPICE GRINDER [facility] Biopsy, Excision URINARY BLADDER BIOPSY SPECIMEN / Unknown 01/17/2024 8:11 AM SPICE GRINDER 01/17/2024 9:50 AM SPICE GRINDER Comment:Pre-op diagnosis: Other hydronephrosis Jose Oliver MD LAB - PATHOLOGY/CY KIOGY ORDERABLES Performing Organization Address City/[facility]/ZIP Co de Phone Number [facility] [address] [phone] * (ABNORMAL) GLUCOSE - POINT OF CARE (01/17/2024 6:02 AM SPICE GRINDER) Glucose WB/POC 134(H) 70 - 115 mg/dL 01/17/2024 6:22 AM SPICE GRINDER [facility] Specimen Type Venous 01/17/2024 6:22 AM [facility] Blood BLOOD SPECIMEN / Unknown 01/17/2024 6:02 AM SPICE GRINDER 01/17/2024 6:22 AM SPICE GRINDER Jose Oliver MD LAB - POINT OF CAR E ORDERABLES Performing Organization Address [facility]/ZIP Co de Phone Number [facility] [address] [place] [address], [facility] [phone] documented in this encounter Visit Diagnoses Diagnosis [...] MAR., PACU $ Given 01/17/2024 8:40 AM SPICE GRINDER 50 mcg $ Given 01/17/2024 8:25 AM SPICE GRINDER 50 mcg glycopyrrolate (Robinul) injection 0.2 mg [...] DBP greater than 100., PACU HYDROcodone-acetaminophe n (Marengo) 5-325 MG tablet 1 tablet 1 tablet, [...] the MAR. $ Given 01/17/2024 9:12 AM SPICE GRINDER 1 tablet HYDROmorphone (Dilaudid) injection 0.5 mg [...] 0819, Intra-op $ Given 01/17/2024 7:47 AM SPICE GRINDER 30 mL Operative Site labetalol (Normodyne; Trandate) [...] Pre-op $ New Bag/Syringe 01/17/2024 5:58 AM SPICE GRINDER 20 mL/hr metoclopramide (Reglan) injection 10 mg [...] Recently Administered Medications Times are shown in SPICE GRINDER. Scheduled Medication Order 01/15/2024 01/16/2024 01/17/2024 albuterol [...] 180, DBP greater than 100., PACU HYDROcodone-acetaminophen (Marengo) 5-325 MG tablet 1 tablet (COMPLETED)(Linked Group [...] PACU Linked Groups Order Group 1: HYDROcodone-acetaminophen (Marengo) 5-325 MG tablet 1 tablet (COMPLETED)Jump to [...] be documented in the MAR. Or HYDROcodone-acetaminophen (Marengo) 5-325 MG tablet 2 tablet (COMPLETED) 2 [...] MAR. documented in this encounter Care Teams Lead Manufacturing Engineer Relationship Specialty Start Date End Date Deisi Andrews MD [address] [place] [address] [place] [address] PCP - General Family Medicine 05/26/23 10/26/24 documented as of this encounter
--- OUTSIDE RECORDS SUMMARY | 2024-11-12 05:23 | XMS_ITS | Encounter Summary ---
Author Organization [facility] Address [address] [facility] [place] [address] Care Team Providers Care Chief Executive Name Role Phone Deisi [place] MD Primary Care Provider [phone] Reason for Visit * Auth/Cert (Routine) Specialty Diagnoses / Procedures Referred By Nacho brooks Referred To Contact Diagnoses Malignant neoplasm of urinary bladder, unspecified site (HCC) Malignant neoplasm of urinary bladder, unspecified site Procedures NJ CYSTOURETHROSCOPY,FULGUR 2-5CM LESN NJ CYSTOURETHROSCOPY,URETER CATHETER NJ CYSTOSCOPY,INSERT URETERAL STENT TRANSURETHRAL RESECTION BLADDER TUMOR (TURBT) CYSTOSCOPY WITH RETROGRADE PYELOGRAM CYSTOSCOPY WITH INSERTION URETERAL STENT Referral ID Status Reason Start Date Expiration Date Visits Re quested Visits Authorized [id number] 1 1 Encounter Details Date Type Department Care Team (Latest Contact Info) Description 12/07/2023 5:51 AM CARTON FILLER - 12/07/2023 11:19 AM [facility] Hospital Encounter [facility] [address] [place] [phone] Jose Oliver MD [address] [facility] 2L DIV OF UROLOGIC [place] [address] Surgery General Discharge Disposition: Home or Self [...] Comments Blood Pressure 147/71 12/07/2023 11:00 AM CARTON FILLER Pulse 67 12/07/2023 11:00 AM CARTON FILLER Temperature 36.6 ??C (97.9 ??F) 12/07/2023 10:[address] Respiratory Rate 22 12/07/2023 11:00 AM CARTON FILLER Oxygen Saturation 94% 12/07/2023 11:00 AM CARTON FILLER Inhaled Oxygen Concentration - - Weight 83 kg (183 lb) 12/07/2023 6:23 AM CARTON FILLER Height 160 cm (5' 3 ) 12/07/2023 6:23 AM CARTON FILLER Body Mass Index 32.42 12/07/2023 6:23 AM CARTON FILLER documented in this encounter Functional Status Functional [...] Kenan Argueta MD - 12/07/2023 8:50 AM CARTON FILLER Images from the original note were not included. [facility] You had a procedure called [...] to cancel orreschedule the appointment please call [phone]. The [facility] is located at [address] [place] [address], [address], [place] [address]. The phone number to clinic is [phone] if you need to cancel or re-schedule. Please arrive 15 minutes early. The [facility] is located at the [facility] level 2. The phone number is [phone]. The address is [address] [place] [id number]. Please arrive 15 minutes early to your appointment. Post Operative Pain Control: - You can take Tylenol (acetaminophen) and Motrin (Ibuprofen) in alternating fashion every 4-6 hours, especially in the first 24-48 hours after surgery, then as needed thereafter. - You may also be prescribed narcotic pain medication such as Oxycodone, [place], or Tramadol. This should be taken as needed for severe pain only. Do not drink alcohol, drive, or operate heavy machinery while taking this type of medication. If the narcotic is [place], please understand that [place] has Tyelonol in it. If you are [...] surgery or the recovery process, please contact [facility] Urology [phone] (Option #1: scheduling, Option #2 Nurse line, Option #3 surgery scheudler, Option#4 administration) on weekdays during regular business hours. If you have an urgent or emergent question on a weekend or after regular business hours, please contact [facility] at [phone] and ask for the provider sound installation worker for Urology. In addition, please contact us [...] to the touch, or non-clear, foul-smelling drainage) ON FILLER documented in this encounter Medications at Time [...] 12 hours 10/28/2023 vitamin D, ergocalciferol, (DRISDOL) 22734 UNITS capsule Take 1 (one) capsule by [...] gnant neoplasm of urinary bladder, unspecified site ([facility]),Bladder spasms,Urinary frequency Take 1 (one) tablet by mouth once daily 90 tablet 4 11/01/2023 09/01/2024 oxyCODONE, immediate release, (Roxicodone) 5 MG tabletIndications:Anastasiya gnant neoplasm of urinary bladder, unspecified site ([facility]) Take 1 (one) tablet by mouth every 6 hours as needed for Pain 6 tablet 12/07/2023 01/06/2024 pantoprazole EC (PROTONIX) 40 MG tabletIndications:need follow up visit for further [id number] option 1 Take 1 (one) tablet by mouth once daily Reasons: need follow up visit for further [phone] option 1 90 tablet 3 01/23/2022 06/15/2024 [...] this encounter H&P Notes * Belkys Taylor APRN-COLOR ADVISER - 12/07/2023 6:22 AM [facility] Division of Urologic Surgery Pre-Operative H&P [...] History 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 0.9% NaCl injection 1-10 mL 1-10 mL Intracatheter PRN Jasvir, Xiomara, HEAT TREATING OPERATOR-COLOR ADVISER ??? acetaminophen (Tylenol) tablet 1,000 mg 1,000 [...] Ref Range Status 10/22/2023 - Final Specific [place] UA Date Value Ref Range Status 10/22/2023 1.000 Final Nitrite UA Date Value Ref Range Status 10/22/2023 - Final Mirco: No results for input(s): URINECULT in the last 73315 hours. CULTURE URINE Order: [id number] Collected 11/24/2023 13:43 ?? Status: Final result ?? Visible to patient: No (not released) ?? 0 Result Notes Component Culture Comment: ?? CULTURE, URINE, ROUTINE ? Micro Number: ?[id number] ?? Test Status: ? Final ?? Specimen Source: ?? Urine, clean catch ?? Specimen Quality: ??Adequate ?? Result: ?Mixed genital unruly isolated. These superficial ?bacteria are not indicative of a urinary tract ?infection. No further organism identification is ?warranted on this specimen. If clinically ?indicated, recollect clean-catch, mid-stream ?urine and transfer immediately to Urine Culture ?Transport Tube. REPORT COMMENT: FASTING:NO Test Performed at: [facility] ??[id number] GISELE JUSTICE MD Pathology: Most recent pathology [...] obtained and placed in chart. Belkys Taylor APRN-COLOR ADVISER 12/07/2023 6:22 AM ON FILLER documented in this encounter OR Notes * [...] Kenan Argueta MD - Resident - Assisting Research Pharmacist(s): non Anesthesia Type: general LMA Complications: none [...] MD 12/07/2023 0811 C : Left Ureteral [place] Biopsy Biopsy, Excision Soft Tissue, Other PATHOLOGY TISSUE Jose Oliver MD 12/07/2023 0813 Implant(s): * No implants in log * Kenan Argueta MD ON FILLER * Operative - Jose Oliver MD - [...] draped in sterile fashion. We placed a 25-Georgian continuous flow resectoscope through the urethra into [...] good hemostatic effect. We then used a 22-Georgian scope and cannulated the left ureter with a 5-Georgian open-ended catheter and performed a retrograde pyelogram. [...] next steps in care. MD ROMANA Craig/ralf .[id number] .[id number] Doc ID: [id number] Voice Job ID: [id number] ON FILLER documented in this encounter Plan of Treatment Upcoming Encounters Date Type Department Care Team (Late st Contact Info) Description 01/19/2025 11:30 AM CARTON FILLER Procedure visit [facility] - Urology [address] [facility] [address] [place] [address] Jose Oliver MD [address] OF UROLOGIC [place] [address] documented as of this encounter Goals Goal [...] FL CYSTO SURGERY Routine 12/07/2023 8:10 PM CARTON FILLER Malignant neoplasm of urinary bladder, unspecified site (HCC) GLUCOSE - POINT OF CARE Routine 12/07/2023 8:38 AM CARTON FILLER CYTOLOGY NON-MARBLE MACHINE TENDER PANEL (STL) Routine 12/07/2023 8:21 AM CARTON FILLER Malignant neoplasm of urinary bladder, unspecified site (HCC) PATHOLOGY TISSUE Routine 12/07/2023 7:55 AM CARTON FILLER Malignant neoplasm of urinary bladder, unspecified site (HCC) NJ CYSTO/URETERO/GEORGES LOSCOPY, DX 12/07/2023 7:45 AM CARTON FILLER Malignant neoplasm of urinary bladder, unspecified site (HCC) Case Notes Reviewed SM 11/29 NJ CYSTOURETHROSCOPY ,URETER CATHETER 12/07/2023 7:45 AM CARTON FILLER Malignant neoplasm of urinary bladder, unspecified site (HCC) Case Notes Reviewed SM 11/29 NJ CYSTOURETHROSCOPY ,FULGUR 2-5CM LESN 12/07/2023 7:45 AM CARTON FILLER Malignant neoplasm of urinary bladder, unspecified site (HCC) Case Notes Reviewed SM 11/29 GLUCOSE - POINT OF CARE Routine 12/07/2023 6:31 AM CARTON FILLER documented in this encounter Results * FL CYSTO SURGERY (12/07/2023 8:10 PM CARTON FILLER) Narrative [facility] - 12/07/2023 8:10 PM CARTON FILLER Fluoroscopy was used for this exam in the OR. Please see the Operative report. Jose Oliver MD FLUOROSCOPY ORDERA BLES [facility] * (ABNORMAL) GLUCOSE - POINT OF CARE (12/07/2023 8:38 AM CARTON FILLER) Glucose WB/POC 135(H) 70 - 115 mg/dL 12/07/2023 8:43 AM CARTON FILLER [facility] Specimen Type Cap Fingerstick 2023 8:43 AM CARTON FILLER [facility] Blood BLOOD SPECIMEN / Unknown 12/07/2023 8:38 AM CARTON FILLER 12/07/2023 8:43 AM CARTON FILLER Jose Oliver MD LAB - POINT OF CAR E ORDERABLES Performing Organization Address [facility]/ZIP Co de Phone Number [facility] [place] [phone], [facility] [phone] * CYTOLOGY NON-MARBLE MACHINE TENDER PANEL (STL) (12/07/2023 8:21 AM CARTON FILLER) Case Report Medical Cytology Report ? Case: [id number] ? Authorizing Provider: ??Jose Oliver MD ?Collected: ? 12/07/2023 08:21 AM ? Ordering Location: ? [facility] ?Received: ?12/07/2023 02:59 PM ? Pathologist: ? Jose Rico MD ? Specimen: ?Body Fluid , left ureteral ? 12/09/2023 12:32 PM [facility] Specimen Adequacy Adequate cellularity for evaluation. 12/09/2023 12:32 PM [facility] Final Diagnosis Left ureter, cytology from cystoscopy: - Atypical urothelial cells 12/09/2023 12:32 PM [facility] Clinical History [...] no obvious papillary mass. 12/09/2023 12:32 PM [facility] Gross Description 1 pap stained cytospin slide from 10cc pink fluid 12/09/2023 12:32 PM [facility] Microscopic Description Microscopic examination substantiates the final diagnosis. 12/09/2023 12:32 PM [facility] Pathologist Location at [facility] 12/09/2023 12:32 PM [facility] Disclaimer The performance characteristics of all immunohistochemical and indirect immunofluorescence stains (if any) cited in this report were determined by the Histopathology Laboratory of [facility]. Some of these tests rely on the use of analyte-specific reagents and are subject to specific labeling requirements by the US Food and Drug Administration. Such tests were developed by the Histology Laboratory of [facility] and have not been cleared or approved [...] the attending (teaching) pathologist. 12/09/2023 12:32 PM CARTON FILLER [facility] LAB Embedded Images 12/09/2023 12:32 PM CARTON FILLER [facility] PATH[facility]Y LAB Pathology/Cytolo gy BODY FLUID SPECIMEN / Unknown Collection / Unknown 12/07/2023 8:21 AM CARTON FILLER 12/07/2023 2:59 PM CARTON FILLER Jose Oliver MD LAB - PATHOLOGY/AIDAN MUNOZ ORDERABLES Performing Organization Address [facility]/State/ZIP Co de Phone Number [facility] PATHOLOGY LAB [address] [facility] [place] [address], [facility] [phone] * PATHOLOGY TISSUE (12/07/2023 7:55 AM CARTON FILLER) Case Report Surgical Pathology Report ? Case: [id number] ? Authorizing Provider: ??Jose lOiver MD ?Collected: ? 12/07/2023 07:55 AM ? Ordering Location: ? [facility] ?Received: ?12/07/2023 01:29 PM ? Pathologist: ? Memo Suarez MD ? Specimens: ?? A) - Bladder Biopsy, Bladder Tumor ? B) - Ureter Biopsy, Left Ureteral [place] Biopsy ? 12/09/2023 3:44 PM [facility] Final Diagnosis Urinary bladder, tumor, biopsy (A): - Fragments of predominantly denuded urothelium with follicular cystitis - No definite muscularis propria present - Negative for carcinoma Ureter, left, biopsy (B): - No diagnostic tissue present, see comment 12/09/2023 3:44 PM [facility] Microscopic Description and Comment Multiple deeper levels were examined on both parts A and B. Sections of the bladder (A) show areas of chronic inflammation and edema with denuded mucosa, compatible with follicular cystitis. The part A was compared with prior biopsy slides ([id number]). No significant atypia or malignancy seen in the current specimen. Sections of the left ureter biopsy (B) shows an area of acellular debris and some red blood cells without any viable tissue present. 12/09/2023 3:44 PM [facility] Clinical History This is a 62-year-old female with history of invasive urothelial cell carcinoma s/p TURBT, found to have an erythematous lesion overlying the left ureteral orifice during most recent cystoscopy. Operative procedure: Cystoscopy, transurethral resection of bladder tumor, left retrograde pyelogram and left diagnostic ureteroscopy with brush biopsy; Findings: erythema within the bladder, no obvious papillary mass. 12/09/2023 3:44 PM [facility] Gross Description [...] in cassette B1. GW 12/09/2023 3:44 PM [facility] Pathologist Location at [facility] 12/09/2023 3:44 PM [facility] Disclaimer The performance characteristics of all immunohistochemical and indirect immunofluorescence stains (if any) cited in this report were determined by the Histopathology Laboratory of [facility]. Some of these tests were [...] the attending (teaching) pathologist. 12/09/2023 3:44 PM [facility] Embedded Images 12/09/2023 3:44 PM [facility] Biopsy, Excision URINARY BLADDER BIOPSY SPECIMEN / Unknown 12/07/2023 7:55 AM CARTON FILLER 12/07/2023 1:29 PM CARTON FILLER Comment:Pre-op diagnosis: Malignant neoplasm of urinary bladder, unspecified site Biopsy, Excision BIOPSY OF URETER / Unknown 12/07/2023 8:11 AM CARTON FILLER 12/07/2023 1:29 PM CARTON FILLER Comment:Pre-op diagnosis: Malignant neoplasm of urinary bladder, unspecified site Jose Oliver MD LAB - PATHOLOGY/CY TAMMY ORDERABLES [facility] LAB [address] [place], [place] [id number] [place] [address] * (ABNORMAL) GLUCOSE - POINT OF CARE (12/07/2023 6:31 AM CARTON FILLER) Glucose WB/POC 119(H) 70 - 115 mg/dL 12/07/2023 6:32 AM CARTON FILLER [facility] Specimen Type Venous 12/07/2023 6:32 AM CARTON FILLER [facility] Blood BLOOD SPECIMEN / Unknown 12/07/2023 6:31 AM CARTON FILLER 12/07/2023 6:32 AM CARTON FILLER Jose Oliver MD LAB - POINT OF CAR E ORDERABLES Performing Organization Address [facility]/State/ZIP Co de Phone Number [facility] [address] [place] [address], [facility] [phone] documented in this encounter Visit Diagnoses Diagnosis [...] MAR., Pre-op $ Given 12/07/2023 6:33 AM CARTON FILLER 1,000 mg albuterol (Proventil;Ventolin) (5 MG/ML) 0.5% nebulizer solution 2.5 mg 2.5 mg, Inhalation, POST-OP MULTIPLE, Starting on Wed12/07/23 at 0808, Until Wed12/07/23 at 1220, For wheezing. Notify anesthesia immediately., PACU $ Given 12/07/2023 9:03 AM CARTON FILLER 2.5 mg diphenhydrAMINE (Benadryl) injection 25 mg [...] MAR., PACU $ Given 12/07/2023 9:25 AM CARTON FILLER 50 mcg $ Given 12/07/2023 9:10 AM CARTON FILLER 50 mcg $ Given 12/07/2023 9:00 AM CARTON FILLER 50 mcg hydrALAZINE (Apresoline) injection 5 mg [...] MAR., PACU $ Given 12/07/2023 8:50 AM CARTON FILLER 0.5 mg $ Given 12/07/2023 8:40 AM CARTON FILLER 0.5 mg labetalol (Normodyne; Trandate) injection 5 [...] Pre-op $ New Bag/Syringe 12/07/2023 6:33 AM CARTON FILLER 20 mL/hr lactated ringers infusion at 125 [...] the MAR. $ Given 12/07/2023 10:25 AM CARTON FILLER 5 mg prochlorperazine (Compazine) injection 10 mg 10 mg, Intravenous, ONCE PRN, Nausea/Vomiting, 1 dose, Starting on Wed12/07/23 at 0808, Until Wed12/07/23 at 1220, First choice, PACU documented in this encounter Active and Recently Administered Medications Times are shown in CARTON FILLER. Scheduled Medication Order 12/05/2023 12/06/2023 12/07/2023 0.9% [...] Pre-op documented in this encounter Care Teams Chief Executive Relationship Specialty Start Date End Date Deisi [place] MD [address] [place] [phone] PCP - General Family Medicine 05/26/23 10/26/24 documented as of this encounter
--- OUTSIDE RECORDS SUMMARY | 2024-11-12 05:23 | XMS_ITS | Encounter Summary ---
Author Organization [facility] Address [address] [facility] [place] [address] Care Team Providers Care Sales Market Leader Name Role Phone Deisi [place] MD Primary Care Provider [phone] Reason for Visit * Auth/Cert (Routine) Specialty Diagnoses / Procedures Referred By Nacho brooks Referred To Contact Diagnoses Other hydronephrosis Other hydronephrosis Procedures ME CYSTOURETHROSCOPY,URETER CATHETER ME CYSTOSCOPY,DIL URETHRAL STRICTURE ME CYSTOSCOPY,INSERT URETERAL STENT CYSTOSCOPY WITH RETROGRADE PYELOGRAM CYSTOSCOPY DILATION URETHRA (WITH/WITHOUT MEATOTOMY) CYSTOSCOPY WITH INSERTION URETERAL STENT Referral ID Status Reason Start Date Expiration Date Visits Re quested Visits Authorized [id number] 1 1 Encounter Details Date Type Department Care Team (Latest Contact Info) Description 01/17/2024 6:20 PM TUNGSTEN TENDER - 01/17/2024 11:59 PM [facility] Hospital Encounter [facility] [address] [place] [phone] Jose Oliver MD [address] [facility] 2L DIV OF [place]OLOGIC [place] [address] Discharge Disposition: Home or Self Care Social [...] moderate COPD by GOLD classification ([facility]) Inhale 2 (two) puffs by mouth [...] 12 hours 10/28/2023 vitamin D, ergocalciferol, (DRISDOL) 57486 UNITS capsule Take 1 (one) capsule by [...] 30 capsule 1 01/17/2024 06/19/2024 HYDROcodone-acetaminop hen ([place]) 5-325 MG tabletIndications:Othe r hydronephrosis Take 1 (one) tablet by mouth every 6 hours as needed for Pain 4 tablet 01/17/2024 02/16/2024 LORazepam (Ativan) 0.5 MG tablet Take 1 (one) tablet by mouth 3 times daily as needed for Anxiety 90 tablet 01/14/2024 02/14/2024 oxyBUTYnin CR 24hr (Ditropan XL) 15 MG tabletIndications:Anastasiya gnant neoplasm of urinary bladder, unspecified site ([facility]),Bladder spasms,Urinary frequency Take 1 (one) tablet by mouth once daily 90 tablet 4 11/01/2023 09/01/2024 pantoprazole EC (PROTONIX) 40 MG tabletIndications:need follow up visit for further [phone] option 1 Take 1 (one) tablet by mouth once daily Reasons: need follow up visit for further [phone] option 1 90 tablet 3 01/23/2022 06/15/2024 Symbicort 160-4.5 MCG/ACT inhalerIndications:Sta ge 2 moderate COPD by GOLD classification ([facility]) INHALE 2 PUFFS BY MOUTH TWICE DAILY 10.2 g 07/07/2023 06/15/2024 documented as of this encounter Plan of Treatment Upcoming Encounters Date Type Department Care Team (Late st Contact Info) Description 01/19/2025 11:30 AM TUNGSTEN TENDER Procedure visit [facility] - Urology [address] [place] [address] [address] [place] [phone] Jose Oliver MD [address] OF [place]OLOGIC [place] [address] documented as of this encounter Goals Goal [...] FL CYSTO SURGERY Routine 01/17/2024 7:04 PM TUNGSTEN TENDER Other hydronephrosis documented in this encounter Results * [place] CYSTO SURGERY (01/17/2024 7:04 PM TUNGSTEN TENDER) Narrative [facility] - 01/17/2024 7:04 PM TUNGSTEN TENDER Fluoroscopy was used for this exam in the OR. Please see the Operative report. Jose Oliver MD FLUOROSCOPY ORDERA SUNIL [facility] documented in this encounter Visit Diagnoses Not on filedocumented in this encounter Care Teams Sales Market Leader Relationship Specialty Start Date End Date Deisi [place] MD [address] [place] [address] [place] [phone] PCP - General Family Medicine 05/26/23 10/26/24 documented as of this encounter
--- OUTSIDE RECORDS SUMMARY | 2024-11-12 05:23 | XMS_ITS | Encounter Summary ---
Author Organization [facility] Address [address] [place] [address] Care Team Providers Care Button Puncher Name Role Phone Deisi [place] MD Primary Care Provider [phone] Encounter Details Date Type Department Care Team [...] st Contact Info) Description 01/19/2025 11:30 AM CARD PLACER Procedure visit [facility] - Urology [address] [facility] [address] [place] [address] Jose Oliver MD [address] [place] [address] documented as of this encounter Goals Goal [...] on filedocumented in this encounter Care Teams Button Puncher Relationship Specialty Start Date End Date Deisi [place] MD [address] [place] [address] PCP - General Family Medicine 05/26/23 10/26/24 documented as of this encounter
--- OUTSIDE RECORDS SUMMARY | 2024-11-12 05:23 | XMS_ITS | Encounter Summary ---
Author Organization [facility] Address [address] [place] [address] Care Team Providers Care Client Technologies Specialist Name Role Phone Deisi [place] MD Primary Care Provider [phone] Encounter Details Date Type Department Care Team [...] st Contact Info) Description 01/19/2025 11:30 AM POWER CLEANER OPERATOR Procedure visit [facility] - Urology [address] [facility] [address] [place] [address] Jose Oliver MD [address] [place] [address] documented as of this encounter Goals Goal [...] on filedocumented in this encounter Care Teams Client Technologies Specialist Relationship Specialty Start Date End Date Deisi [place] MD [address] [place] [place] [address] PCP - General Family Medicine 05/26/23 10/26/24 documented as of this encounter
--- OUTSIDE RECORDS SUMMARY | 2024-11-12 05:23 | XMS_ITS | Encounter Summary ---
Author Organization [facility] Address [address] [place] [address] Care Team Providers Care Automotive Machinist Apprentice Name Role Phone Deisi Andrews MD Primary Care Provider [phone] Reason for Visit * Reason Onset Date Comments Results 01/24/2024 Encounter Details Date Type Department Care Team (Late st Contact Info) Description 01/24/2024 Telephone [facility] SURGERY [address] [place] [address] Jose Oliver MD [address] [place] [address] Results Social History Tobacco Use [...] st Contact Info) Description 01/19/2025 11:30 AM DYED YARN OPERATOR Procedure visit [facility] - Urology [address] [place] [address] [address] [place] [address] Jose Oliver MD [facility] [place] [address] documented as of this encounter Goals Goal [...] on filedocumented in this encounter Care Teams Automotive Machinist Apprentice Relationship Specialty Start Date End Date Deisi Andrews MD [address] [place] [address] [place] [address] PCP - General Family Medicine 05/26/23 10/26/24 documented as of this encounter
--- OUTSIDE RECORDS SUMMARY | 2024-11-12 05:23 | XMS_ITS | Encounter Summary ---
Author Organization [facility] Address [address] [facility] [address] [place] [address] Care Team Providers Care Log Yard Derrick Operator Name Role Phone Deisi Andrews MD Primary Care Provider [phone] Encounter Details Date Type Department Care Team [...] st Contact Info) Description 01/19/2025 11:30 AM RUBBER BALL FINISHER Procedure visit [facility] - [facility]rology [address] [facility] [address] [place] [address] Jose Oliver MD [address] [facility] 2[address] [facility] [place] [address] documented as of this encounter Goals Goal [...] on filedocumented in this encounter Care Teams Log Yard Derrick Operator Relationship Specialty Start Date End Date Deisi Andrews MD [address] [place] [address] PCP - General Family Medicine 05/26/23 10/26/24 documented as of this encounter
--- OUTSIDE RECORDS SUMMARY | 2024-11-12 05:23 | XMS_ITS | Encounter Summary ---
Author Organization [facility] Address [address] [facility] [place] [address] Care Team Providers Care Cardiology Technologist Name Role Phone Deisi Andrews MD Primary Care Provider [phone] Reason for Referral * (Routine) - Open Specialty Diagnoses / Procedures Referred By Nacho brooks Referred To Contact Procedures Follow up with provider Jose Oliver MD [facility] [place] [address] [place] [address] [place] [address] [address] [place] [address] Referral ID Status Reason Start Date Expiration Date Visits Re quested Visits Authorized [id number] Open 06/21/2024 06/21/2025 1 1 Reason for Visit * Auth/Cert (Routine) Specialty Diagnoses / Procedures Referred By Nacho brooks Referred To Contact Diagnoses Malignant neoplasm of urinary bladder, unspecified site (HCC) Malignant neoplasm of urinary bladder, unspecified site (HCC) Procedures ID CYSTO/URETERO/PYELOSCOPY W/BX ID URETERAL REFLUX STUDY CYSTOSCOPY WITH BIOPSY CYSTOGRAM Referral ID Status Reason Start Date Expiration Date Visits Re quested Visits Authorized [id number] 1 1 Encounter Details Date Type Department Care Team (Latest Contact Info) Description 06/21/2024 6:55 AM CDT - 06/21/2024 11:30 AM CDT Hospital Encounter [facility] [address] [place] [address] Jose Oliver MD [address] [facility] 2L [place] [address] Surgery General Discharge Disposition: Home or Self [...] from the original note were not included. [facility] You had a procedure called a [...] cancel or reschedule the appointment please call [phone]. We will call with path results in 1-2 weeks. The [facility] is located at [address] [place] [address], [address], [place] [address]. The phone number to clinic is [phone] if you need to cancel or re-schedule. [...] prescribed narcotic pain medication such as Oxycodone, Senatobia, or Tramadol. This should be taken as needed for severe pain only. Do not drink alcohol, drive, or operate heavy machinery while taking this type of medication. If the narcotic is Senatobia, please understand that Senatobia has Tyelonol in it. If you are [...] surgery or the recovery process, please contact [facility] Urology [phone] (Option #1: scheduling, Option #2 Nurse line, Option #3 surgery scheudler, Option#4 administration) on weekdays during regular business hours. If you have an urgent or emergent question on a weekend or after regular business hours, please contact [facility] Hospital at [phone] and ask for the provider rock mason for Urology. 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 [...] Reasons: need follow up visit for further [phone] option 1 (Patient not taking: Reported on 01/17/2024) 90 tablet 3 sotalol (Betapace) 80 MG tablet Take 1.5 (one and one-half) tablets by mouth every 12 hours Symbicort 160-4.5 MCG/ACT inhaler INHALE 2 PUFFS BY MOUTH TWICE DAILY (Patient not taking: Reportedon 01/06/2024) 10.2 g 0 vitamin D, ergocalciferol, (DRISDOL) 31587 UNITS capsule Take 1 (one) capsule by [...] Ref Range Status 05/05/2024 neg Final Specific Dixon UA Date Value Ref Range Status 05/05/2024 1.025 Final Nitrite UA Date Value Ref Range Status 05/05/2024 neg Final Mirco: No results for input(s): URINECULT in the last 05893 hours. Pathology: Collected 01/17/2024 08:11 Status: Final [...] obtained and placed in chart. Florida Knutson APRN-DELI ASSOCIATE 06/21/2024 7:49 AM documented in this encounter [...] Role: * Jose Oliver MD - Primary Flag Car Driver(s): Vivek Scott MD - resident assisting Anesthesia [...] draped in sterile fashion. We took a 22-Cymro cystoscope and placed this through the urethra [...] then performed a cystogram. We placed a 16-Cymro catheter with 10 mL of water in [...] was present entire procedure. MD ROMANA Craig/alethea .[id number] Doc ID: [id number] Voice Job ID: [id number] documented in this encounter Plan of Treatment Upcoming Encounters Date Type Department Care Team (Late st Contact Info) Description 01/19/2025 11:30 AM SLOT SERVICE SPECIALIST Procedure visit [facility] - Urology [address] [place] [address] [address] [place] [address] Jose Oliver MD [address] [place] [address] documented as of this encounter Goals Goal [...] neoplasm of urinary bladder, unspecified site (HCC) ID URETERAL REFLUX STUDY 06/21/2024 9:03 AM CDT Malignant neoplasm of urinary bladder, unspecified site (HCC) Case Notes Reviewed 06/19 ID CYSTO/URETERO/GEORGES LOSCOPY W/BX 06/21/2024 9:03 AM CDT [...] Case Report Surgical Pathology Report ? Case: [id number] ? Authorizing Provider: ??Jose Oliver MD ?Collected: ? 06/21/2024 10:01 AM ? Ordering Location: ? [facility] ?Received: ?06/21/2024 01:25 PM ? Pathologist: ? Nicole Glaser MD ? Specimens: ?? A) - Bladder Biopsy, 1. right floor bladder ? B) - Bladder Biopsy, 2. Right posterior wall ? 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 Ki-67 stains the majority of urothelial cells, including cells at the surface, supporting a diagnosis of carcinoma in situ 06/23/2024 8:22 AM [facility] Clinical History The patient is a 63 year old woman with history of bladder cancer, now with 2 areas of mild bleeding and mild inflammation noted that were biopsied along the right bladder floor and posterior lateral wall. 06/23/2024 8:22 AM [facility] Gross Description The requisition [...] in cassette B1. DF 06/23/2024 8:22 AM [facility] Pathologist Location at [facility] 06/23/2024 8:22 AM [facility] Disclaimer The performance characteristics of all immunohistochemical and indirect immunofluorescence stains (if any) cited in this report were determined by the Histopathology Laboratory of [facility]. Some of these tests were developed [...] the attending (teaching) pathologist. 06/23/2024 8:22 AM [facility] Embedded Images 06/23/2024 8:22 AM [facility] Biopsy, Excision URINARY BLADDER [...] - PATHOLOGY/AIDAN MUNOZ ORDERABLES Performing Organization Address City/[facility]/ZIP Co de Phone Number [facility] [address] [facility] [address], [facility] [phone] * (ABNORMAL) GLUCOSE - POINT OF CARE (06/21/2024 8:10 AM CDT) Glucose WB/POC 149(H) 70 - 115 mg/dL 06/21/2024 8:[address] [facility] Specimen Type Venous 06/21/2024 8:[address] [facility] Blood BLOOD SPECIMEN / Unknown 06/21/2024 8:10 AM CDT 06/21/2024 8:47 AM CDT Jose Oliver MD LAB - POINT OF CAR E ORDERABLES Performing Organization Address [facility]/[place]UST Co de Phone Number [address] [address], [facility] [phone] * PTT [facility] [...] LAB - COAGULATION ORDERABLES Performing Organization Address City/[facility]/ZIP Co de Phone Number [facility] [address] [place] [address], [place] [phone] * PT-INR [facility] (06/21/2024 8:07 AM CDT) PT 12.7 12.1 - 14.8 Seconds 06/21/2024 8:35 AM CDT [facility] INR 1.0 See Comment 06/21/2024 8:35 AM CDT [facility] Comment:The suggested therap eutic range for standard coumadin (warfarin) therapy is an INR of 2.0-3.0. For high-risk patients (Mechanical Mitral Valve Prosthesis, etc.), the suggested prophylactic therapeutic range is an INR of 2.5-3.5. Blood BLOOD SPECIMEN / Unknown Venipuncture / Unknown 06/21/2024 8:07 AM CDT 06/21/2024 8:09 AM CDT Jose Oliver MD LAB - COAGULATION ORDERABLES [facility] [address] [place] [address], [facility] [phone] documented in this encounter Visit Diagnoses Diagnosis PAD (peripheral artery disease) (HCC)- Primary Unspecified disorders of arteries and arterioles CAD in [place] artery Coronary atherosclerosis of [place] coronary artery Nocturia Malignant neoplasm of urinary [...] Pre-op documented in this encounter Care Teams Cardiology Technologist Relationship Specialty Start Date End Date Deisi Andrews MD [address] [place] [address] [place] [address] PCP - General Family Medicine 05/26/23 10/26/24 documented as of this encounter
--- OUTSIDE RECORDS SUMMARY | 2024-11-12 05:23 | XMS_ITS | Encounter Summary ---
Author Organization [facility] Address [address] [facility] [place] [address] Care Team Providers Care First Line Supervisor Name Role Phone Deisi Andrews MD Primary Care Provider [phone] Reason for Visit * Auth/Cert (Routine) Specialty Diagnoses / Procedures Referred By Nacho brooks Referred To Contact Diagnoses Other hydronephrosis Other hydronephrosis Procedures OK CYSTOURETHROSCOPY,URETER CATHETER OK CYSTOSCOPY,DIL URETHRAL STRICTURE OK CYSTOSCOPY,INSERT URETERAL STENT CYSTOSCOPY WITH RETROGRADE PYELOGRAM CYSTOSCOPY DILATION URETHRA (WITH/WITHOUT MEATOTOMY) CYSTOSCOPY WITH INSERTION URETERAL STENT Referral ID Status Reason Start Date Expiration Date Visits Re quested Visits Authorized [id number] 1 1 Encounter Details Date Type Department Care Team (Late Contact Info) Description 01/17/2024 7:23 AM BOLT MAKER Anesthesia Event [facility] [address] [place] [address] Angelique Hampton MD [address] [place] [id number] Jeana Oneal, SORTING GRAPPLE [facility]PER[facility] [address] [facility] [place] [address] Anesthesia Record Procedure Summary Procedure Name Responsible [...] Time : 05; Orientation: Right; Placed By: OK; Tolerance: Well 01/17/24 0558 by Jacqulein Dash RN 01/17/24 0942 by Jacquelin Dash [...] no known notable events for this encounter. MAKER * Angelique Hampton MD - 01/12/2024 8:38 [...] Pain: No Shortness of Breath: Yes (chronic LAEK which is not worsening) AICD/Pacemaker: No Renal Disease: No Diagnostic Tests: ECG(s) reviewed: Yes (11/19/23) Echo(s) reviewed: Yes. Stress Test(s) reviewed: Yes. Cardiac Cath(s) reviewed: Yes. Lab(s) reviewed: Yes (11/22/23). Other Findings: 09/16/23 STRESS TEST CONCLUSIONS: No diagnostic ST changes. Global left ventricular function is normal. Left ventricular ejection fraction is 69 %. Myocardial perfusion imaging is normal. Recommend follow up with it support analyst. 12/31/21 TTE Findings consistent with mild effects [...] GLP-1 Agonists No XI. Most recent EK11/19/23 ([facility]) Sinus rhythm 83 bpm XI. Additional testing [...] OPTIMIZED - PAT EVALUATION COMPLETE Jeana Oneal, MEI-IT ASSISTANT 01/12/2024 8:40 AM for this procedure. Preoperative [...] Obstructive sleep apnea Cardiovascular (+) CAD in [place] artery (+) Essential (primary) hypertension (+) Other forms of angina pectoris (+) PAD (peripheral artery disease) ([facility]) Pulmonary (+) Chronic obstructive pulmonary disease ([facility]) (+) Obstructive sleep apnea (+) Other asthma GI (+) Gastro-esophageal reflux disease without esophagitis Endocrine (+) Type 2 diabetes mellitus with diabetic polyneuropathy ([facility]) Problem List: Patient Active Problem List Diagnosis Date Noted ??? CAD in [place] artery 10/24/2020 Priority: Not Prioritized ??? PAD (peripheral artery disease) ([facility]) Priority: Not Prioritized ??? MDD (recurrent major depressive disorder) in remission ([facility]) 08/05/2018 Priority: Not Prioritized ??? GIOVANNY (generalized anxiety disorder) 06/09/2017 ICD-10 update ??? Obesity 01/09/2017 ??? Nocturia 01/09/2017 ??? Personal history of transient ischemic attack (TIA), and cerebral infarction without residual deficits 01/09/2017 reported ??? Occlusion and stenosis of bilateral carotid arteries 01/09/2017 ??? Chronic pain syndrome 01/09/2017 ??? Type 2 diabetes mellitus with diabetic polyneuropathy ([facility]) 01/09/2017 EMG/NCV [facility] ??? Insomnia due to medical condition 01/09/2017 ??? Gastro-esophageal reflux disease without esophagitis 01/09/2017 ??? Primary osteoarthritis of one knee 01/09/2017 ??? Other asthma 01/09/2017 ??? Sleep related leg cramps 01/09/2017 ??? Other forms of angina pectoris 01/09/2017 ??? Essential (primary) hypertension 01/09/2017 ??? Hypersomnia due to medical condition 01/09/2017 ??? Chronic obstructive pulmonary disease ([facility]) 01/09/2017 ??? Personal history of traumatic brain injury 01/09/2017 Reports brief LOC. Age 17. ??? Restless legs syndrome 01/01/2017 ??? Obstructive sleep apnea 01/01/2017 ??? Cervicalgia 04/28/2015 ??? Other chronic pain 04/28/2015 Medical History: Past Medical History: Diagnosis Date ??? Anxiety ??? Asthma ??? Atherosclerosis of coronary artery ??? Bladder cancer ([facility]) ??? Cardiac dysrhythmia afib ??? Chest pain pain 10/23 ??? Chronic obstructive pulmonary disease (COPD) ([facility]) ??? Depression ??? Essential hypertension ??? GERD [...] OTHER SURGERY excision of anal warts ??? OK FOOT/TOES SURGERY PROC UNLISTED ??? TRANS URETHRAL [...] 12/07/2023 Left; LEFT URETEROSCOPY, LEFT URETERAL BIOPSY SENIOR LOGISTICS MANAGER Status: No LMP recorded. Patient is postmenopausal. Postmenopausal OB History No obstetric history on file. Covid Vaccine: Lab Results: Recent Labs Base Name 12/07/23 0838 [id number] 135* SPECIMENTYPE Cap Fingerstick Recent Labs Component [...] 9 (11/22/2023) eGFR by CKD-EPI >90 (11/22/2023) MAKER documented in this encounter Miscellaneous Notes * Anesthesia Transfer of Care - Jimmy Harp DO - 01/17/2024 8:20 AM BOLT MAKER ANESTHESIA TRANSFER OF CARE NOTE Today's Date: [...] 557; Orientation: Right; Location: Forearm; Placed By: OK; Gauge: 20 Gauge; Tolerance: Well 01/17/24557 by [...] from the receiving PACUteam. Jimmy Harp DO MAKER documented in this encounter Plan of Treatment Upcoming Encounters Date Type Department Care Team (Late st Contact Info) Description 01/19/2025 11:30 AM BOLT MAKER Procedure visit [facility] - Urology [address] [facility] [address] [place] [address] Jose Oliver MD [address] [address] documented as of this encounter Goals Goal [...] Intra-op $ New Bag/Syringe 01/17/2024 7:33 AM BOLT MAKER 2 mg fentaNYL (PF) (Sublimaze) injection Intravenous, PRN, Starting on Wed01/17/24 at 0738, Until Wed01/17/24 at 0820, Anesthesia Intra-op $ Given 01/17/2024 8:05 AM BOLT MAKER 25 mcg $ Given 01/17/2024 7:51 AM BOLT MAKER 25 mcg $ Given 01/17/2024 7:38 AM BOLT MAKER 50 mcg lactated ringers infusion Intravenous, CONTINUOUS PRN, Starting on Wed01/17/24 at 0730, Until Wed01/17/24 at 0820, Anesthesia Intra-op $ New Bag/Syringe 01/17/2024 7:30 AM BOLT MAKER midazolam (Versed) injection Intravenous, PRN, Starting on Wed01/17/24 at 0722, Until Wed01/17/24 at 0820, Anesthesia Intra-op $ Given 01/17/2024 7:22 AM BOLT MAKER 2 mg propofol (Diprivan) infusion Intravenous, CONTINUOUS PRN, Starting on Wed01/17/24 at 0730, Until Wed01/17/24 at 0820, Anesthesia Intra-op $ Given 01/17/2024 8:05 AM BOLT MAKER 20 mg Rate Change 01/17/2024 8:01 AM BOLT MAKER 80 mcg/kg/min 39.216 mL /hr Rate Change 01/17/2024 7:53 AM BOLT MAKER 100 mcg/kg/min 49.02 mL /hr documented in this encounter Care Teams First Line Supervisor Relationship Specialty Start Date End Date Deisi Andrews MD [address] [place] [address] PCP - General Family Medicine 05/26/23 10/26/24 documented as of this encounter
--- OUTSIDE RECORDS SUMMARY | 2024-11-12 05:23 | XMS_ITS | Encounter Summary ---
Author Organization [facility] Address [address] [facility] [place] [address] Care Team Providers Care Fagoter Name Role Phone Deisi Andrews MD Primary Care Provider [phone] Reason for Referral * PT/OT/ST (Routine) - Closed Specialty Diagnoses / Procedures Referred By Nacho t Referred To Contact Physical Therapy Diagnoses Malignant neoplasm of urinary bladder, unspecified site (HCC) Jose Oliver MD [address] [place] [address] 2[address] [place] [address] [facility] Pt [address] [place] [address] Referral ID Status Reason Start Date Expiration Date V isits Requested Visits Authorized [id number] Closed Specialty Services Required 05/05/2024 05/05/2025 1 1 Reason for Visit * Reason Comments Cystoscopy Encounter Details Date Type Department Care Team (Latest Contact Info) Description 05/05/2024 11:30 AM CDT Procedure visit [facility] - Urology [address] [place] [address] [address] [place] [address] Jose Oliver MD [facility]5 [facility] 2L [place] [address] Malignant neoplasm of urinary bladder, [...] bladder biopsy, cystogram Pelvic floor PT referral Jose Oliver MD 05/05/2024 11:46 AM Low risk: [...] Contact Info) Description 01/19/2025 11:30 AM NETWORK ACCOUNT MANAGER Procedure visit [facility] - Urology [address] [place] [address] [address] [place] [address] Jose Oliver MD [facility] [place] [address] Scheduled Referrals Name Type Priority Associated Diagnoses Orde r Schedule Ref to PT Sports Med at [facility] Outpatient Referral Routine Malignant neoplasm [...] neg [facility] [address] Specific [place] UA 1.[address] [facility] [address] Blood [...] POINT OF CAR E ORDERABLES LIN [address] [facility] [address] [facility] [place] [address] [phone] documented in this encounter Visit Diagnoses Diagnosis Malignant neoplasm of urinary bladder, unspecified site (HCC)- Primary Other hydronephrosis documented in this encounter Care Teams Fagoter Relationship Specialty Start Date End Date Deisi Andrews MD [address] [place] [address] PCP - General Family Medicine 05/26/23 10/26/24 documented as of this encounter
--- OUTSIDE RECORDS SUMMARY | 2024-11-12 05:23 | XMS_ITS | Encounter Summary ---
Author Organization [facility] Address [address] [facility] [place] [address] Care Team Providers Care Software Design Engineer Name Role Phone Deisi Andrews MD Primary Care Provider [phone] Encounter Details Date Type Department Care Team [...] st Contact Info) Description 01/19/2025 11:30 AM BLOCK SAWYER Procedure visit [facility] [address] [facility] [address] [place] [address] Jose Oliver MD [address] [facility] 2L [facility] [place] [address] documented as of this encounter Goals Goal [...] filedocumented in this encounter Care Teams Software Design Engineer Relationship Specialty Start Date End Date Deisi Andrews MD [address] [place] [address] [place] [address] PCP - General Family Medicine 05/26/23 10/26/24 documented as of this encounter
--- OUTSIDE RECORDS SUMMARY | 2024-11-12 05:23 | XMS_ITS | Encounter Summary ---
Author Organization [facility] Address [address] [facility] [place] [address] Care Team Providers Care Timber Spotter Name Role Phone Deisi Andrews MD Primary Care Provider [phone] Encounter Details Date Type Department Care Team (Latest Contact Info) Description 11/22/2023 10:00 AM DIRECT CARE COUNSELOR - 11/22/2023 11:59 PM [facility] Encounter [facility] OP DRAW STATION [address] [place] [phone] Jose Oliver MD [address] [place] [address] Discharge Disposition: Home or Self Care Social [...] 12 hours 10/28/2023 vitamin D, ergocalciferol, (DRISDOL) 28120 UNITS capsule Take 1 (one) capsule by [...] MG tabletIndications:need follow up visit for further [phone] option 1 Take 1 (one) tablet by mouth once daily Reasons: need follow up visit for further [phone] option 1 90 tablet 3 01/23/2022 06/15/2024 [...] st Contact Info) Description 01/19/2025 11:30 AM DIRECT CARE COUNSELOR Procedure visit [facility] - Urology [address] [place] [address] [address] [place] [address] Jose Oliver MD [address] [place] [phone] documented as of this encounter Goals Goal [...] Comments HEMOGLOBIN A1C Routine 11/22/2023 10:36 AM DIRECT CARE COUNSELOR Pre-op exam CBC W/O DIFFERENTIAL Routine 11/22/2023 10:36 AM DIRECT CARE COUNSELOR Pre-op exam BASIC METABOLIC PANEL (CALCIUM TOTAL) Routine 11/22/2023 10:36 AM DIRECT CARE COUNSELOR Pre-op exam documented in this encounter Results * (ABNORMAL) HEMOGLOBIN A1C [IN-HOUSE TEST] (11/22/2023 10:36 AM DIRECT CARE COUNSELOR) Hemoglobin A1c 6.4(H) <=5.6 % 11/22/2023 12:05 PM [facility] Estimated Average Glucose 137 mg/dL 11/22/2023 12:05 PM [facility] Comment: HbA1c Interpretation: Normal : < 5.7% Pre-diabetes: 5.7-6.4% Diabetes: Equal to or greater than 6.5% Test results diagnostic of diabetes should be repeated for confirmation. Treatment target values recommended by ADA and other clinical organizations should be used to evaluate metabolic control in patients. Reference: [place] Diabetes Association, Standards of Care in Diabetes -2020 In patients 70 years and older consider HbA1c target range of 7.0-7.5% (Reference: Montez Rosas et al. JAMDA. 2012) The Sebia assay for the measurement of HbA1c is a National Glycohemoglobin Standardization Program (NGSP) certified method. Blood BLOOD SPECIMEN WITH EDTA / Unknown Lab Venipuncture / Unknown 11/22/2023 10:36 AM DIRECT CARE COUNSELOR 11/22/2023 10:42 AM DIRECT CARE COUNSELOR Jasmin Moore STORE MANAGER-ENERGY CROP FARMER LAB - CHEMISTRY ORDERABLES [facility] [address] [place] [address], [facility] [phone] * CBC W/O DIFFERENTIAL (11/22/2023 10:36 AM DIRECT CARE COUNSELOR) WBC 9.9 4.0 - 10.7 x10E9/L 11/22/2023 10:54 AM [facility] RBC Count 4.94 3.90 - 5.20 x10E12/L 11/22/2023 10:54 AM [facility] Hemoglobin 13.6 11.9 - 15.8 g/dL 11/22/2023 10:54 AM [facility] Hematocrit 40.8 34.8 - 46.1 % 11/22/2023 10:54 AM [facility] MCV 82.6 80.0 - 98.0 fL 11/22/2023 10:54 AM [facility] MCH 27.5 26.7 - 33.6 pg 11/22/2023 10:54 AM [facility] MCHC 33.3 31.7 - 36.3 g/dL 11/22/2023 10:54 AM [facility] RDW-CV 14.1 11.3 - 14.8 % 11/22/2023 10:54 AM [facility] Platelet Count 260 150 - 420 x10E9/L 11/22/2023 10:54 AM [facility] MPV 10.1 7.8 - 11.4 fL 11/22/2023 10:54 AM [facility] Blood BLOOD SPECIMEN / Unknown Lab Venipuncture / Unknown 11/22/2023 10:36 AM [facility] 11/22/2023 10:42 AM [facility] Jasmin Moore STORE MANAGER-ENERGY CROP FARMER LAB - HEMATOLOGY ORDERABLES Performing Organization Address [facility]/State/[facility] Co de Phone Number [facility] [address] [place] [address], [facility] [phone] * (ABNORMAL) BASIC METABOLIC PANEL (CALCIUM TOTAL) (11/22/2023 10:36 AM [facility]) BUN 25 7 - 26 mg/dL 11/22/2023 11:14 AM [facility] Creatinine 0.72 0.56 - 0.96 mg/dL 11/22/2023 11:14 AM [facility] Sodium 141 136 - 145 mmol/L 11/22/2023 11:14 AM [facility] Potassium 4.3 3.5 - 4.5 mmol/L 11/22/2023 11:14 AM [facility] Chloride 107 98 - 107 mmol/L 11/22/2023 11:14 AM [facility] CO2 25 22 - 29 mmol/L 11/22/2023 11:14 AM [facility] Glucose 126(H) 70 - 115 mg/dL 11/22/2023 11:14 AM [facility] Calcium 9.1 8.4 - 10.2 mg/dL 11/22/2023 11:14 AM [facility] Anion Gap 9 6 - 16 11/22/2023 11:14 AM [facility] BUN/Creatinine Ratio 35(H) 7 - 23 11/22/2023 11:14 AM [facility] Osmolality Calculated 298(H) 275 - 295 mOsm/kg 11/22/2023 11:14 AM [facility] eGFR by CKD-EPI >90 >=90 mL/min/1.7 3 m2 11/22/2023 11:14 AM [facility] Blood BLOOD SPECIMEN / Unknown Lab Venipuncture / Unknown 11/22/2023 10:36 AM DIRECT CARE COUNSELOR 11/22/2023 10:43 AM [facility] Jasmin Moore STORE MANAGER-ENERGY CROP FARMER LAB - CHEMISTRY ORDERABLES Performing Organization Address City/State/[facility] Co de Phone Number [facility] [address] [place] [address], [facility] [phone] documented in this encounter Visit Diagnoses Diagnosis Pre-op exam Preoperative examination, unspecified documented in this encounter Care Teams Timber Spotter Relationship Specialty Start Date End Date Deisi Andrews MD [address] [place] [phone] PCP - General Family Medicine 05/26/23 10/26/24 documented as of this encounter
--- OUTSIDE RECORDS SUMMARY | 2024-11-12 05:23 | XMS_ITS | Encounter Summary ---
Author Organization [employer] Address [address] [facility] [place] [address] Care Team Providers Care Oil Operator Name Role Phone Deisi Andrews MD Primary Care Provider [phone] Reason for Visit * Auth/Cert (Routine) Specialty Diagnoses / Procedures Referred By Nacho brooks Referred To Contact Diagnoses Malignant neoplasm of urinary bladder, unspecified site (HCC) Malignant neoplasm of urinary bladder, unspecified site (HCC) Procedures AL CYSTO/URETERO/PYELOSCOPY W/BX AL URETERAL REFLUX STUDY CYSTOSCOPY WITH BIOPSY CYSTOGRAM Referral ID Status Reason Start Date Expiration Date Visits Re quested Visits Authorized [id number] 1 1 Encounter Details Date Type Department Care Team (Late st Contact Info) Description 06/21/2024 8:45 AM CDT - 06/21/2024 10:45 AM CDT Surgery [facility] [address] [place] [phone] Jose Oliver MD [address] [facility] [address] [place] [phone] CYSTOSCOPY, BLADDER BIOPSY Surgery Details Date/Time Status Location OR Service Patient Class Case Class Case Type Trauma Case? 06/21/2024 8:45 AM Posted [facility] OR OR 07 Urology Surgery Day Care [...] from the original note were not included. [facility] Urology You had a procedure [...] cancel or reschedule the appointment please call [phone]. We will call with path results in 1-2 weeks. [facility] is located at [address] [facility], [address], [place] [address]. The phone number to clinic is [phone] if you need to cancel or re-schedule. [...] prescribed narcotic pain medication such as Oxycodone, [place], or Tramadol. This should be taken as needed for severe pain only. Do not drink alcohol, drive, or operate heavy machinery while taking this type of medication. If the narcotic is Bloomfield, please understand that Bloomfield has Tyelonol in it. If you are [...] surgery or the recovery process, please contact [facility] Urology [phone] (Option #1: scheduling, Option #2 Nurse line, Option #3 surgery scheudler, Option#4 administration) on weekdays during regular business hours. If you have an urgent or emergent question on a weekend or after regular business hours, please contact [facility] at [phone] and ask for the provider labor relations director for Urology. 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 [...] Reasons: need follow up visit for further [phone] option 1 (Patient not taking: Reported on 01/17/2024) 90 tablet 3 sotalol (Betapace) 80 MG tablet Take 1.5 (one and one-half) tablets by mouth every 12 hours Symbicort 160-4.5 MCG/ACT inhaler INHALE 2 PUFFS BY MOUTH TWICE DAILY (Patient not taking: Reportedon 01/06/2024) 10.2 g 0 vitamin D, ergocalciferol, (DRISDOL) 13321 UNITS capsule Take 1 (one) capsule by [...] Ref Range Status 05/05/2024 neg Final Specific Hampton UA Date Value Ref Range Status 05/05/2024 1.025 Final Nitrite UA Date Value Ref Range Status 05/05/2024 neg Final Mirco: No results for input(s): URINECULT in the last [address] hours. Pathology: Collected 01/17/2024 08:11 Status: Final [...] obtained and placed in chart. [place] Knutson APRN-POWERTRAIN CALIBRATION ENGINEER 06/21/2024 7:49 AM documented in this encounter [...] Role: * Jose Oliver MD - Primary Globe Changer(s): Vivek Scott MD - resident assisting Anesthesia [...] draped in sterile fashion. We took a 22-Senegalese cystoscope and placed this through the urethra [...] then performed a cystogram. We placed a 16-Senegalese catheter with 10 mL of water in [...] was present entire procedure. MD KAPIL Craig/kir .[id number] Doc ID: [id number] Voice Job ID: [id number] documented in this encounter Plan of Treatment Upcoming Encounters Date Type Department Care Team (Late st Contact Info) Description 01/19/2025 11:30 AM WINDMILL MECHANIC Procedure visit [facility] - Urology [address] [place] [address] [address] [place] [address] Jose Oliver MD [facility] [place] [address] documented as of this encounter Goals Goal [...] neoplasm of urinary bladder, unspecified site (HCC) AL URETERAL REFLUX STUDY 06/21/2024 9:03 AM CDT Malignant neoplasm of urinary bladder, unspecified site (HCC) Case Notes Reviewed 06/19 AL CYSTO/URETERO/GEORGES LOSCOPY W/BX 06/21/2024 9:03 AM CDT Malignant neoplasm of urinary bladder, unspecified site (HCC) Case Notes Reviewed 06/19 GLUCOSE - POINT OF CARE Routine 06/21/2024 8:10 AM CDT PTT [facility] Routine 06/21/2024 8:07 AM CDT PAD (peripheral artery disease) (HCC) PT-INR [facility] STAT 06/21/2024 8:07 AM CDT PAD (peripheral artery disease) (HCC) documented in this encounter Results * [place] Cysto Surgery (06/21/2024 9:46 PM CDT) Narrative [facility] RADIOLOGY - 06/21/2024 9:46 PM CDT Fluoroscopy was used for this exam in the OR. Please see the Operative report. Jose Oliver MD FLUOROSCOPY KALIN BARBER [facility] * PATHOLOGY TISSUE (06/21/2024 10:01 AM CDT) Case Report Surgical Pathology Report ? Case: [id number] ? Authorizing Provider: ??Jose Oliver MD ?Collected: ? 06/21/2024 10:01 AM ? Ordering Location: ? [facility] ?Received: ?06/21/2024 01:25 PM ? Pathologist: ? Nicole Glaser MD ? Specimens: ?? A) - Bladder Biopsy, 1. right floor bladder ? B) - Bladder Biopsy, 2. Right posterior wall ? 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 Ki-67 stains the majority of urothelial cells, including cells at the surface, supporting a diagnosis of carcinoma in situ 06/23/2024 8:22 AM [facility] Clinical History The patient is a 63 year old woman with history of bladder cancer, now with 2 areas of mild bleeding and mild inflammation noted that were biopsied along the right bladder floor and posterior lateral wall. 06/23/2024 8:22 AM [facility] Gross Description The requisition [...] in cassette B1. DF 06/23/2024 8:22 AM [facility] Pathologist Location at [facility] 06/23/2024 8:22 AM [facility] Disclaimer The performance characteristics of all immunohistochemical and indirect immunofluorescence stains (if any) cited in this report were determined by the Histopathology Laboratory of [facility]. Some of these tests were developed [...] the attending (teaching) pathologist. 06/23/2024 8:22 AM [facility] Embedded Images 06/23/2024 8:22 AM [facility] Biopsy, Excision URINARY BLADDER BIOPSY SPECIMEN / Unknown 06/21/2024 10:01 AM CDT 06/21/2024 1:25 PM CDT Comment:Pre-op diagnosis: Malignant neoplasm of urinary bladder, unspecified site (HCC) Biopsy, Excision URINARY BLADDER BIOPSY SPECIMEN / Unknown 06/21/2024 10:06 AM CDT 06/21/2024 1:25 PM CDT Comment:Pre-op diagnosis: Malignant neoplasm of urinary bladder, unspecified site (HCC) Jose Oliver MD LAB - PATHOLOGY/CY TOLOGY ORDERABLES [facility] [address] [facility] [place] [address], [facility] [phone] * (ABNORMAL) GLUCOSE - POINT OF CARE (06/21/2024 8:10 AM CDT) Glucose WB/POC 149(H) 70 - 115 mg/dL 06/21/2024 8:47 AM CDT [facility] Specimen Type Venous 06/21/2024 8:47 AM CDT [facility] Blood BLOOD SPECIMEN / Unknown 06/21/2024 8:10 AM CDT 06/21/2024 8:47 AM CDT Jose Oliver MD LAB - POINT OF CAR E ORDERABLES Performing Organization Address City/[facility]/ZIP Co de Phone Number [address] [address], [facility] [phone] * PTT [facility] (06/21/2024 8:07 AM CDT) APTT 26.7 23.0 - 38.4 Seconds 06/21/2024 8:35 AM CDT [facility] Comment:Suggested therapeuti c range for full dose I.V. unfractionated heparin therapy for venous thromboembolism is 71 to 109 seconds. Blood BLOOD SPECIMEN / Unknown Venipuncture / Unknown 06/21/2024 8:07 AM CDT 06/21/2024 8:09 AM CDT Jose Oliver MD LAB - COAGULATION ORDERABLES [address] [address], [facility] [phone] * PT-INR [facility] (06/21/2024 8:07 AM CDT) PT 12.7 12.1 - 14.8 Seconds 06/21/2024 8:35 AM CDT [facility] INR 1.0 See Comment 06/21/2024 8:35 AM CDT [facility] Comment:The suggested therap eutic range for standard coumadin (warfarin) therapy is an INR of 2.0-3.0. For high-risk patients (Mechanical Mitral Valve Prosthesis, etc.), the suggested prophylactic therapeutic range is an INR of 2.5-3.5. Blood BLOOD SPECIMEN / Unknown Venipuncture / Unknown 06/21/2024 8:07 AM CDT 06/21/2024 8:09 AM CDT Jose Oliver MD LAB - COAGULATION ORDERABLES [address] [address], [facility] [phone] documented in this encounter Visit Diagnoses Diagnosis PAD (peripheral artery disease) (HCC)- Primary Unspecified disorders of arteries and arterioles CAD in [place] artery Coronary atherosclerosis of te[place] coronary artery Nocturia Malignant neoplasm of urinary [...] New Bag/Syri nge - Provider: Tita Catalan APRN-INSURANCE LOSS ASSESSOR) Continuous Medication Order 06/19/2024 06/20/2024 06/21/2024 lactated [...] Pre-op documented in this encounter Care Teams Oil Operator Relationship Specialty Start Date End Date Deisi Andrews MD [address] [place] [address] [place] [phone] PCP - General Family Medicine 05/26/23 10/26/24 documented as of this encounter
--- OUTSIDE RECORDS SUMMARY | 2024-11-12 05:23 | XMS_ITS | Encounter Summary ---
Author Organization [facility] Address [address] [facility] [place] [address] Care Team Providers Care College Intern Name Role Phone Deisi Andrews MD Primary Care Provider [phone] Reason for Visit * Auth/Cert (Routine) Specialty Diagnoses / Procedures Referred By Nacho brooks Referred To Contact Diagnoses Malignant neoplasm of urinary bladder, unspecified site (HCC) Malignant neoplasm of urinary bladder, unspecified site (HCC) Procedures IL CYSTO/URETERO/PYELOSCOPY W/BX IL URETERAL REFLUX STUDY CYSTOSCOPY WITH BIOPSY CYSTOGRAM Referral ID Status Reason Start Date Expiration Date Visits Re quested Visits Authorized [id number] 1 1 Encounter Details Date Type Department Care Team (Late st Contact Info) Description 06/21/2024 9:32 AM CDT Anesthesia Event [facility] [address] [place] [address] Jose Ramirez MD [address] [place] [phone] Mervin Jaffe MD [address] [facility] [address] [address] Anesthesia Record Procedure Summary Procedure [...] imaging is normal. Recommend follow up with assembler garment form.). Lab(s) reviewed: Yes (CMP, CBC 11/22/23 WNL). [...] of Ischemic Heart Disease? YES - h/o TX / CAD / CABG If yes then [...] PM and Within 6 months for AICD [place] Information needed (windows phone developer, mode, indication for CIED, battery life, magnet [...] Age>50, Neck circumference>18 If yes then: update [email or web address] problem list to include: CATHERINE If patient [...] being admitted then order: IP Consult to Career Coach (comment regarding consult for undiagnosed CATHERINE) - Follow steps 2 and 3 above If pt has STOP-BANG >=5 with undiagnosed CATHERINE and is outpatient and interested in setting up a sleep study then: - send [email or web address] message to HASEEB and cc Dr. Dubon [...] procedural Anesthetic Plan was discussed with the NETWORK OPERATIONS CENTER TECHNICIAN, anesthesiologist ob gyn physician assistant, resident and attending. BMI, Height, Weight [...] Problem List Diagnosis Date Noted CAD in [place] artery 10/24/2020 Priority: Not Prioritized PAD (peripheral artery disease) ([facility]) Priority: Not Prioritized MDD (recurrent major depressive disorder) in remission ([facility]) 08/05/2018 Priority: Not Prioritized GIOVANNY (generalized anxiety disorder) 06/09/2017 ICD-10 update Obesity 01/09/2017 Nocturia 01/09/2017 Personal history of transient ischemic attack (TIA), and cerebral infarction without residual deficits 01/09/2017 reported Occlusion and stenosis of bilateral carotid arteries 01/09/2017 Chronic pain syndrome 01/09/2017 Type 2 diabetes mellitus with diabetic polyneuropathy ([facility]) 01/09/2017 EMG/NCV [facility] Insomnia due to medical condition 01/09/2017 Gastro-esophageal reflux disease without esophagitis 01/09/2017 Primary osteoarthritis of one knee 01/09/2017 Other asthma ([facility]) 01/09/2017 Sleep related leg cramps 01/09/2017 Other forms of angina pectoris 01/09/2017 Essential (primary) hypertension 01/09/2017 Hypersomnia due to medical condition 01/09/2017 Chronic obstructive pulmonary disease ([facility]) 01/09/2017 Personal history of traumatic brain injury [...] 1989 OTHER SURGERY excision of anal warts IL FOOT/TOES SURGERY PROC UNLISTED TRANS URETHRAL RESECT BLADDER TUMOR 03/23/2022 TRANSURETHRAL RESECTION BLADDER TUMOR (TURBT) TRANS URETHRAL RESECT BLADDER TUMOR N/A 01/18/2023 N/A; Blue light cystoscopy and transurethral resection of bladder tumor TRANS URETHRAL RESECT BLADDER TUMOR N/A 12/07/2023 N/A; TRANSURETHRAL RESECTION BLADDER TUMOR (TURBT) Tympanostomy 2013 URETEROSCOPY Left 03/23/2022 Left; URETEROSCOPY URETEROSCOPY Left 12/07/2023 Left; LEFT URETEROSCOPY, LEFT URETERAL BIOPSY GATE WATCHMAN Status: No LMP recorded. Patient is postmenopausal. Postmenopausal OB History No obstetric history on file. Covid Vaccine: Lab Results: Recent Labs Component Name 05/05/24 1140 NITRITE neg PROTEINUA +- No results found for requested labs within last 120 days. No results found for requested labs within last 120 days. documented in this encounter Miscellaneous Notes * Anesthesia Transfer of Care - Tita Catalan APRN-NETWORK OPERATIONS CENTER TECHNICIAN - 06/21/2024 10:33 AM CDT ANESTHESIA TRANSFER [...] report from the receiving PACUteam. Tita Catalan APRN-NETWORK OPERATIONS CENTER TECHNICIAN documented in this encounter Plan of Treatment Upcoming Encounters Date Type Department Care Team (Late st Contact Info) Description 01/19/2025 11:30 AM DATA MANAGEMENT CONSULTANT Procedure visit [facility] - Urology [address] [facility] [address] [place] [phone] Jose Oliver MD [address] [place] [address] documented as of this encounter Goals Goal [...] mg documented in this encounter Care Teams College Intern Relationship Specialty Start Date End Date Deisi Andrews MD [address] [place] [address] [place] [phone] PCP - General Family Medicine 05/26/23 10/26/24 documented as of this encounter
--- OUTSIDE RECORDS SUMMARY | 2024-11-12 05:23 | XMS_ITS | Encounter Summary ---
Author Organization [facility] Address [address] [place] [address] Care Team Providers Care Agriculture Sales Account Manager Name Role Phone Deisi Andrews MD Primary Care Provider [phone] Reason for Visit * Reason Comments Refill Request Encounter Details Date Type Department Care Team ([facility] Contact Info) Description 11/30/2023 Refill [facility] - Urology [address] [place] [address] [address] [place] [phone] Jose Oliver MD [address] [place] [address] Refill Request Social History Tobacco Use Types [...] st Contact Info) Description 01/19/2025 11:30 AM WEAVER HAND Procedure visit [facility] [address] [place] [address] [address] [place] [address] Jose Oliver MD [address] [place] [address] documented as of this encounter Goals Goal [...] on filedocumented in this encounter Care Teams Agriculture Sales Account Manager Relationship Specialty Start Date End Date Deisi Andrews MD [address] [place] [phone] PCP - General Family Medicine 05/26/23 10/26/24 documented as of this encounter
--- OUTSIDE RECORDS SUMMARY | 2024-11-12 05:23 | XMS_ITS | Encounter Summary ---
Author Organization [facility] Address [address] [place] [address] Care Team Providers Care Post Graduate Intern Name Role Phone Deisi Andrews MD Primary Care Provider [phone] Reason for Referral * Radiology Services (Routine) - Closed Specialty Diagnoses / Procedures Referred By Nacho brooks Referred To Contact Nuclear Medicine Diagnoses Other hydronephrosis Procedures NM RENAL SCAN W Jose Keane MD [address] [place] [address] 2L [place] [address] [facility] Nuclear Medicine [address] [place] [phone] Referral ID Status Reason Start Date Expiration Date Visits Re quested Visits Authorized [id number] Closed 04/18/2024 04/18/2025 1 1 Reason for Visit * Radiology Services (Routine) - Closed Specialty Diagnoses / Procedures Referred By Contsamra t Referred To Contact Nuclear Medicine Diagnoses Other hydronephrosis Procedures NM RENAL SCAN W Jose Keane MD [address] [facility] 2[place] [address] [facility] Nuclear Medicine [address] [place] [phone] Referral ID Status Reason Start Date Expiration Date Visits Re quested Visits Authorized [id number] Closed 04/18/2024 04/18/2025 1 1 Encounter Details Date Type Department Care Team (Latest Contact Info) Description 04/20/2024 8:56 AM CDT - 04/20/2024 9:33 AM CDT Hospital Encounter [facility] NUCLEAR MEDICINE [address] [place] [address] Jose Oliver MD [address] [facility] 2L [place] [address] Discharge Disposition: Home or Self [...] moderate COPD by GOLD classification ([facility]) Inhale 2 (two) puffs by mouth every [...] 12 hours 10/28/2023 vitamin D, ergocalciferol, (DRISDOL) 07448 UNITS capsule Take 1 (one) capsule by [...] MG tabletIndications:need follow up visit for further [id number] option 1 Take 1 (one) tablet by mouth once daily Reasons: need follow up visit for further [id number] option 1 90 tablet 3 01/23/2022 06/15/2024 Symbicort 160-4.5 MCG/ACT inhalerIndications:Sta ge 2 moderate COPD by GOLD classification ([facility]) INHALE 2 PUFFS BY MOUTH TWICE DAILY 10.2 g 07/07/2023 06/15/2024 documented as of this encounter Plan of Treatment Upcoming Encounters Date Type Department Care Team (Late st Contact Info) Description 01/19/2025 11:30 AM MACHINE BANDER AND CELLOPHANER Procedure visit [facility] - Urology [address] [facility] [place] [address] Jose Oliver MD [address] [place] [address] documented as of this encounter Goals Goal [...] kidney. > Dictated by Margi Brooke MD (Producer Arborist Manager) 04/20/2024 9:43 AM Samira Rader DO have personally reviewed and interpreted this examination/study. > Interpreting Provider: Samira Tariq DO on 04/20/2024 3:39 PM Narrative 04/20/2024 3:39 PM CDT PROCEDURE: ??NM RENAL SCAN W DRUG, DATE/TIME OF EXAM: ??04/20/2024 9:58 AM, LOCATION ??[facility] INDICATION: N13.39: Other hydronephrosis ADDITIONAL CLINICAL INFORMATION: [...] DATE/TIME OF EXAM: 04/20/2024 9:58 AM, LOCATION [facility] INDICATION: N13.39: Other hydronephrosis ADDITIONAL CLINICAL INFORMATION: [...] kidney. > Dictated by Margi Brooke MD (Producer Arborist Manager) 04/20/2024 9:43 AM ISamira DO have personally [...] millicuries documented in this encounter Care Teams Post Graduate Intern Relationship Specialty Start Date End Date Deisi Andrews MD [address] [place] [address] DANNIE Rodríguez [phone] PCP - General Family Medicine 05/26/23 10/26/24 documented as of this encounter
--- OUTSIDE RECORDS SUMMARY | 2024-11-12 05:23 | XMS_ITS | Encounter Summary ---
Author Organization [facility] Address [address] [place] [address] Care Team Providers Care Steam Conditioning Operator Name Role Phone Deisi Andrews MD Primary Care Provider [phone] Encounter Details Date Type Department Care Team [...] st Contact Info) Description 01/19/2025 11:30 AM RETAIL SERVICE SPECIALIST Procedure visit [facility] - Urology [address] [facility] [address] [place] [address] Jose Oliver MD [address] [facility] 2L [facility] [place] [address] documented as of this encounter Goals Goal [...] on filedocumented in this encounter Care Teams Steam Conditioning Operator Relationship Specialty Start Date End Date Deisi Andrews MD [address] [place] [address] [place] [address] PCP - General Family Medicine 05/26/23 10/26/24 documented as of this encounter
--- OUTSIDE RECORDS SUMMARY | 2024-11-12 05:23 | XMS_ITS | Encounter Summary ---
Author Organization [facility] Address [address] [facility] [place] [address] Care Team Providers Care Guest Relations Manager Name Role Phone Deisi Andrews MD Primary Care Provider [phone] Reason for Referral * Radiology Services (Routine) - Closed Specialty Diagnoses / Procedures Referred By Nacho brooks Referred To Contact Nuclear Medicine Diagnoses Other hydronephrosis Procedures NM RENAL SCAN W Jose Keane MD [address] [place] [address] [place] [address] [facility] Nuclear Medicine [address] [place] [phone] Referral ID Status Reason Start Date Expiration Date Visits Re quested Visits Authorized [id number] Closed 04/18/2024 04/18/2025 1 1 CONTROLLER Reason for Visit * Auth/Cert (Routine) Specialty Diagnoses / Procedures Referred By Nacho brooks Referred To Contact Diagnoses Other hydronephrosis Other hydronephrosis Procedures ME CYSTOURETHROSCOPY,URETER CATHETER ME CYSTOSCOPY,DIL URETHRAL STRICTURE ME CYSTOSCOPY,INSERT URETERAL STENT CYSTOSCOPY WITH RETROGRADE PYELOGRAM CYSTOSCOPY DILATION URETHRA (WITH/WITHOUT MEATOTOMY) CYSTOSCOPY WITH INSERTION URETERAL STENT Referral ID Status Reason Start Date Expiration Date Visits Re quested Visits Authorized [id number] 1 1 Encounter Details Date Type Department Care Team (Latest Contact Info) Description 01/17/2024 5:33 AM CITY CONTROLLER - 01/17/2024 9:49 AM CITY CONTROLLER Hospital Encounter [facility] [address] [place] [address] Jose Oliver MD [address] [facility] 2L DIV [place] [address] Surgery General Discharge Disposition: Home or Self [...] Comments Blood Pressure 108/93 01/17/2024 9:30 AM CITY CONTROLLER Pulse 54 01/17/2024 9:30 AM CITY CONTROLLER Temperature 36.4 ??C (97.6 ??F) 01/17/2024 9:02 AM CS T Respiratory Rate 13 01/17/2024 9:30 AM CITY CONTROLLER Oxygen Saturation 96% 01/17/2024 9:30 AM CITY CONTROLLER Inhaled Oxygen Concentration 40% 01/17/2024 8 :20 AM CITY CONTROLLER Weight 81.7 kg (180 lb 3.2 oz) 01/17/2024 5:43 A M CITY CONTROLLER Height 160 cm (5' 3 ) 01/17/2024 5:43 AM CITY CONTROLLER Body Mass Index 31.92 01/17/2024 5:43 AM CITY CONTROLLER documented in this encounter Functional Status Functional [...] Mariana Zamora MD - 01/17/2024 8:23 AM CITY CONTROLLER Images from the original note were not included. [facility] You had a procedure called a [...] are scheduled for lasix renal scan at [facility] on April 20 at 9AM. You are scheduled to follow up with Dr Oliver on WednesdayApril 21 with clinic cystoscopy at 9:45 AM.If you need to cancel or reschedule the appointment please call [phone]. The [facility] is located at [address] [place] [address], [address], [place] [address]. The phone number to clinic is [phone] if you need to cancel or re-schedule. Please arrive 15 minutes early. Post Operative Pain Control: - You can take Tylenol (acetaminophen) and Motrin (Ibuprofen) in alternating fashion every 4-6 hours, especially in the first 24-48 hours after surgery, then as needed thereafter. - You may also be prescribed narcotic pain medication such as Oxycodone, [place], or Tramadol. This should be taken as needed for severe pain only. Do not drink alcohol, drive, or operate heavy machinery while taking this type of medication. If the narcotic is [place], please understand that [place] has Tyelonol in it. If you are [...] or the recovery process, please contact [facility] Urology [phone] (Option #1: scheduling, Option #2 Nurse line, Option #3 surgery scheudler, Option#4 administration) on weekdays during regular business hours. If you have an urgent or emergent question on a weekend or after regular business hours, please contact [facility] at [phone] and ask for the provider religious education director for Urology. In addition, please contact [...] to the touch, or non-clear, foul-smelling drainage) CONTROLLER documented in this encounter Medications at Time [...] by GOLD classification ([facility]) Inhale 2 (two) puffs by mouth every [...] 12 hours 10/28/2023 vitamin D, ergocalciferol, (DRISDOL) 17283 UNITS capsule Take 1 (one) capsule by mouth every 7 days 01/29/2019 acetaminophen (TYLENOL) 325 MG tablet Take 2 (two) tablets by mouth every 6 hours as needed for Fever or Pain Maximum allowable Acetaminophen amount = 4 Grams (4000 mg) / 24 hours. 60 tablet 03/23/2022 06/21/2024 HYDROcodone-acetaminop hen ([place]) 5-325 MG tabletIndications:Othe r hydronephrosis Take 1 [...] MG tabletIndications:need follow up visit for further [id number] option 1 Take 1 (one) tablet by mouth once daily Reasons: need follow up visit for further [id number] option 1 90 tablet 3 01/23/2022 06/15/2024 [...] List Diagnosis Date Noted ??? CAD in [place] artery 10/24/2020 Priority: Not Prioritized ??? PAD (peripheral artery disease) ([facility]) Priority: Not Prioritized ??? MDD (recurrent major depressive disorder) in remission ([facility]) 08/05/2018 Priority: Not Prioritized ??? GIOVANNY (generalized [...] condition 01/09/2017 ??? Chronic obstructive pulmonary disease ([facility]) 01/09/2017 ??? Personal history of traumatic brain injury 01/09/2017 Reports brief LOC. Age 17. ??? Restless legs syndrome 01/01/2017 ??? Obstructive sleep apnea 01/01/2017 ??? Cervicalgia 04/28/2015 ??? Other chronic pain 04/28/2015 Past Medical History: Diagnosis Date ??? Anxiety ??? Asthma ??? Atherosclerosis of coronary artery ??? Bladder cancer ([facility]) ??? Cardiac dysrhythmia afib ??? Chest pain pain 12/9 ??? Chronic obstructive pulmonary disease (COPD) ([facility]) ??? Depression ??? Essential hypertension ??? GERD (gastroesophageal reflux disease) ??? History of diabetes mellitus ??? Obesity ??? Peripheral vascular disease ([facility]) stents in both legs ??? Pure hypercholesterolemia ??? Sleep apnea does not use CPAP ??? Snoring ??? TIA (transient ischemic attack) Past Surgical History: Procedure Laterality Date ??? Cholecystectomy 2006 ??? CYSTOSCOPY Left 12/07/2023 Left; LEFT RETROGRADE PYELOGRAM ??? HX C SECTION CLASSIC 1989 ??? HX CAROTID ENDARDECTOMY 2014 ??? HX TUBAL LIGATION 1989 ??? OTHER SURGERY excision of anal warts ??? ME FOOT/TOES SURGERY PROC UNLISTED ??? TRANS URETHRAL [...] IN EACH NOSTRIL ONCE DAILY ??? HYDROcodone-acetaminophen ([place]) 5-325 MG tablet Take 1 (one) tablet [...] Reasons: need follow up visit for further [id number] option 1 (Patient not taking: Reported on 01/17/2024) 90 tablet 3 ??? sotalol (Betapace) 80 MG tablet Take 1.5 (one and one-half) tablets by mouth every 12 hours ??? Symbicort 160-4.5 MCG/ACT inhaler INHALE 2 PUFFS BY MOUTH TWICE DAILY (Patient not taking: Reported on 01/06/2024) 10.2 g 0 ??? 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 Lab results smartLinks are not currently [...] Argueta MD Urology Resident 01/17/2024 6:25 AM CONTROLLER documented in this encounter OR Notes * [...] Kenan Argueta MD - Resident - Assisting Product Blending Supervisor(s): Mariana Zamora MD Anesthesia Type: MAC Complications: [...] implants in log * Kenan Argueta MD CONTROLLER * Operative - Kenan Argueta MD - [...] widely patent and able to accommodate a 5-Lao open-ended catheter easily. Retrograde pyelogram demonstrating mild [...] normal sterile fashion.Timeout was then performed. A 22-Lao rigid cystoscope was used to enter the [...] cannulated the left ureteral orifice with a 5-Lao open-ended catheter rather easily. Contrast was injected. [...] pathology results. MD Jose Calderon MD JO/ralf .[id number] .[id number] Doc ID: [id number] Voice Job ID: [id number] CONTROLLER Associated attestation - Jose Oliver MD - 01/17/2024 10:07 AM CITY CONTROLLER I was present for the entire procedure. documented in this encounter Plan of Treatment Upcoming Encounters Date Type Department Care Team (Late st Contact Info) Description 01/19/2025 11:30 AM CITY CONTROLLER Procedure visit [facility] - Urology [address] [place] [address] [address] [place] [phone] Jose Oliver MD [address] [place] [address] documented as of this encounter Goals Goal [...] [place] CYSTO SURGERY Routine 01/17/2024 7:04 PM CITY CONTROLLER Other hydronephrosis GLUCOSE - POINT OF CARE Routine 01/17/2024 8:30 AM CITY CONTROLLER PATHOLOGY TISSUE Routine 01/17/2024 8:11 AM CITY CONTROLLER Other hydronephrosis ME CYSTOURETHROSCOP Y,URETER CATHETER 01/17/2024 7:44 AM CITY CONTROLLER Other hydronephrosis Case Notes Reviewed 01/12 GLUCOSE - POINT OF CARE Routine 01/17/2024 6:02 AM CITY CONTROLLER documented in this encounter Results * NM [...] kidney. > Dictated by Margi Brooke MD (Broomcorn Seeder) 04/20/2024 9:43 AM ISamira DO have personally reviewed and interpreted this examination/study. > Interpreting Provider: Samira Tariq DO on 04/20/2024 3:39 PM Narrative 04/20/2024 3:39 PM CDT PROCEDURE: ??NM RENAL SCAN W DRUG, DATE/TIME OF EXAM: ??04/20/2024 9:58 AM, LOCATION ??[facility] INDICATION: N13.39: Other hydronephrosis ADDITIONAL [...] DATE/TIME OF EXAM: 04/20/2024 9:58 AM, LOCATION [facility] INDICATION: N13.39: Other hydronephrosis ADDITIONAL [...] kidney. > Dictated by Margi Brooke MD (Broomcorn Seeder) 04/20/2024 9:43 AM I, Samira Tariq DO have personally reviewed and interpreted this examination/study. > Interpreting Provider: Samira Tariq DO on 04/20/2024 3:39 PM Jose Oliver MD NM ORDERABLES * FL CYSTO SURGERY (01/17/2024 7:04 PM CITY CONTROLLER) Narrative [facility] - 01/17/2024 7:04 PM CITY CONTROLLER Fluoroscopy was used for this exam in the OR. Please see the Operative report. Jose Oliver MD FLUOROSCOPY ORDERA BLES Performing Organization Address City/[facility]/ZIP Co de Phone Number [facility] * (ABNORMAL) GLUCOSE - POINT OF CARE (01/17/2024 8:30 AM CITY CONTROLLER) Glucose WB/POC 128(H) 70 - 115 mg/dL 01/17/2024 8:34 AM CITY CONTROLLER [facility] Specimen Type Cap Fingerstick 2023 8:34 AM CITY CONTROLLER [facility] Blood BLOOD SPECIMEN / Unknown 01/17/2024 8:30 AM CITY CONTROLLER 01/17/2024 8:34 AM CITY CONTROLLER Jose Oliver MD LAB - POINT OF CAR E ORDERABLES [facility] [address] [place] [address], [facility] [phone] * PATHOLOGY TISSUE (01/17/2024 8:11 AM CITY CONTROLLER) Case Report Surgical Pathology Report ? Case: [id number] ? Authorizing Provider: ??Jose Oliver MD ?Collected: ? 01/17/2024 08:11 AM ? Ordering Location: ? [facility] ?Received: ?01/17/2024 09:50 AM ? Pathologist: ? Nicole Glaser MD ? Specimen: ?Bladder Biopsy, bladder biopsy ? 01/18/2024 12:34 PM [facility] Final Diagnosis Bladder, biopsy (A): - Benign urothelial mucosa with submucosal chronic inflammation - Muscularis propria not present 01/18/2024 12:34 PM [facility] Microscopic Description and Comment Microscopic examination substantiates the final diagnosis. 01/18/2024 12:34 PM [facility] Clinical History This patient is a 63-year-old woman with history of recurrent non-muscle invasive bladder cancer (last biopsy negative, [id number]) who presented for cystoscopy with biopsy of right lateral wall erythematous mounding. 01/18/2024 12:34 PM [facility] Gross Description The requisition and specimen(s) are identified with the patient's name, Arnold Cruz. Received in formalin, specimen A , is a single pink biopsy, 0.5 x 0.4 x 0.3 cm, submitted in toto in cassette A1. GW 01/18/2024 12:34 PM [facility] Pathologist Location at [facility] 01/18/2024 12:34 PM [facility] Disclaimer The performance characteristics of all immunohistochemical and indirect immunofluorescence stains (if any) cited in this report were determined by the Histopathology Laboratory of [facility]. Some of these tests were developed by [...] the attending (teaching) pathologist. 01/18/2024 12:34 PM [facility] Embedded Images 01/18/2024 12:34 PM [facility] Biopsy, Excision URINARY BLADDER BIOPSY SPECIMEN / Unknown 01/17/2024 8:11 AM CITY CONTROLLER 01/17/2024 9:50 AM CITY CONTROLLER Comment:Pre-op diagnosis: Other hydronephrosis Jose Oliver MD LAB - PATHOLOGY/CY TOLOGY ORDERABLES [facility] [address] [place] [address], [facility] [phone] * (ABNORMAL) GLUCOSE - POINT OF CARE (01/17/2024 6:02 AM CITY CONTROLLER) Glucose WB/POC 134(H) 70 - 115 mg/dL 01/17/2024 6:22 AM [facility] Specimen Type Venous 01/17/2024 6:22 AM [facility] Blood BLOOD SPECIMEN / Unknown 01/17/2024 6:02 AM CITY CONTROLLER 01/17/2024 6:22 AM CITY CONTROLLER Jose Oliver MD LAB - POINT OF CAR E ORDERABLES [facility] [address] [place] [phone], [facility] [phone] documented in this encounter Visit Diagnoses Diagnosis Other hydronephrosis- Primary Other hydronephrosis documented in this encounter Administered Medications Inactive Administered Medications - up to 3 most recent administrations Medication Order [facility] Action Action Date Dose Rate Site [...] MAR., PACU $ Given 01/17/2024 8:40 AM CITY CONTROLLER 50 mcg $ Given 01/17/2024 8:25 AM CITY CONTROLLER 50 mcg glycopyrrolate (Robinul) injection 0.2 mg [...] 180, DBP greater than 100., PACU HYDROcodone-acetaminophen ([place]) 5-325 MG tablet 1 tablet 1 tablet, [...] the MAR. $ Given 01/17/2024 9:12 AM CITY CONTROLLER 1 tablet HYDROmorphone (Dilaudid) injection 0.5 mg [...] Pre-op $ New Bag/Syringe 01/17/2024 5:58 AM CITY CONTROLLER 20 mL/hr metoclopramide (Reglan) injection 10 mg [...] Recently Administered Medications Times are shown in CITY CONTROLLER. Scheduled Medication Order 01/15/2024 01/16/2024 01/17/2024 albuterol [...] 180, DBP greater than 100., PACU HYDROcodone-acetaminophen ([place]) 5-325 MG tablet 1 tablet (COMPLETED)(Linked Group [...] PACU Linked Groups Order Group 1: HYDROcodone-acetaminophen ([place]) 5-325 MG tablet 1 tablet (COMPLETED)Jump to [...] be documented in the MAR. Or HYDROcodone-acetaminophen ([place]) 5-325 MG tablet 2 tablet (COMPLETED) 2 [...] MAR. documented in this encounter Care Teams Guest Relations Manager Relationship Specialty Start Date End Date Deisi Andrews MD [address] [place] [phone] PCP - General Family Medicine 05/26/23 10/26/24 documented as of this encounter
--- OUTSIDE RECORDS SUMMARY | 2024-11-12 05:23 | XMS_ITS | Encounter Summary ---
Author Organization [facility] Address [address] [place] [address] Care Team Providers Care Site Planner Name Role Phone Deisi Andrews MD Primary Care Provider [phone] Reason for Visit * Reason Onset Date Comments Medication Request 10/28/2023 Patient wante d to know If Dr Oliver could send her some oxybutynin please Encounter Details Date Type Department Care Team ([facility] Contact Info) Description 10/28/2023 Telephone [facility] [address] [place] [address], [place] [address] Jose Oliver MD [address] [place] [address] DIV OF UROLOGIC [place] [address] Medication Request (Patient wanted to [...] Oliver could send her some oxybutynin please R AND GAS HELPER documented in this encounter Plan of Treatment Upcoming Encounters Date Type Department Care Team (Late st Contact Info) Description 01/19/2025 11:30 AM WATER AND GAS HELPER Procedure visit [facility] Urology [address] [place] [address] [address] [place] [address] Jose Oliver MD [address] OF UROLOGIC [place] [phone] documented as of this encounter Goals Goal [...] on filedocumented in this encounter Care Teams Site Planner Relationship Specialty Start Date End Date Deisi Andrews MD [address] [place] [address] [place] [phone] PCP - General Family Medicine 05/26/23 10/26/24 documented as of this encounter
--- OUTSIDE RECORDS SUMMARY | 2024-11-12 05:23 | XMS_ITS | Encounter Summary ---
Author Organization [facility] Address [address] [facility] [place] [address] Care Team Providers Care Financial Advisor Trainee Name Role Phone Deisi Andrews MD Primary Care Provider [phone] Reason for Visit * Radiology Services (Routine) - Closed Specialty Diagnoses / Procedures Referred By Nacho brooks Referred To Contact Nuclear Medicine Diagnoses Other hydronephrosis Procedures NM RENAL SCAN W DRUG Jose Oliver MD [address] [place] [address] 2L [place] [address] [facility] Nuclear Medicine [address] [place] [phone] Referral ID Status Reason Start Date Expiration Date Visits Re quested Visits Authorized [id number] Closed 04/18/2024 04/18/2025 1 1 Encounter Details Date Type Department Care Team (Latest Contact Info) Description 04/20/2024 9:34 AM CDT - 04/20/2024 11:59 PM CDT Hospital Encounter [facility] NUCLEAR [facility] [address] [place] [address] Jose Oliver MD [facility]5 [facility] 2L [place] [address] Discharge Disposition: Home or Self [...] 12 hours 10/28/2023 vitamin D, ergocalciferol, (DRISDOL) 10893 UNITS capsule Take 1 (one) capsule by [...] gnant neoplasm of urinary bladder, unspecified site ([facility]),Bladder spasms,Urinary frequency Take 1 (one) tablet by mouth once daily 90 tablet 4 11/01/2023 09/01/2024 pantoprazole EC (PROTONIX) 40 MG tabletIndications:need follow up visit for further [phone] option 1 Take 1 (one) tablet by mouth once daily Reasons: need follow up visit for further [phone] option 1 90 tablet 3 01/23/2022 06/15/2024 Symbicort 160-4.5 MCG/ACT inhalerIndications:Sta ge 2 moderate COPD by GOLD classification ([facility]) INHALE 2 PUFFS BY MOUTH TWICE DAILY 10.2 g 07/07/2023 06/15/2024 documented as of this encounter Plan of Treatment Upcoming Encounters Date Type Department Care Team (Late st Contact Info) Description 01/19/2025 11:30 AM SERVICE ATTENDANT CAFETERIA Procedure visit [facility] - Urology [address] [place] [address] [address] [place] [address] Jose Oliver MD [address] [place] [address] documented as of this encounter Goals Goal [...] documented in this encounter Care Teams Financial Advisor Trainee Relationship Specialty Start Date End Date Deisi Andrews MD [address] [place] [address] [place] [address] PCP - General Family Medicine 05/26/23 10/26/24 documented as of this encounter
--- OUTSIDE RECORDS SUMMARY | 2024-11-12 05:23 | XMS_ITS | Encounter Summary ---
Author Organization [facility] Address [address] [facility] [place] [address] Care Team Providers Care Skip Hoist Engineer Name Role Phone Deisi Andrews MD Primary Care Provider [phone] Encounter Details Date Type Department Care Team (Late st Contact Info) Description 10/26/2023 Orders Only [facility] - Urology [address] [facility], [place] [address] Monica Magallon LPN Malignant neoplasm of urinary [...] Contact Info) Description 01/19/2025 11:30 AM METAL CNC OPERATOR Procedure visit [facility] - Urology [address] [place] [address] [address] [place] [address] Jose Oliver MD [address] [place] [address] documented as of this encounter Goals Goal [...] unspecified documented in this encounter Care Teams Skip Hoist Engineer Relationship Specialty Start Date End Date Deisi Andrews MD [address] [place] [address] DANNIE Rodríguez [phone] PCP - General Family Medicine 05/26/23 10/26/24 documented as of this encounter
--- OUTSIDE RECORDS SUMMARY | 2024-11-12 05:23 | XMS_ITS | Encounter Summary ---
Author Organization [facility] Address [address] [facility] [place] [facility] [place] [address] Care Team Providers Care Mine Car Repairer Name Role Phone Deisi Andrews MD Primary Care Provider [phone] Reason for Visit * Reason Onset Date Comments Refill Request 02/14/2024 Encounter Details Date Type Department Care Team (Late st Contact Info) Description 02/14/2024 Telephone [facility] - Centralized Scheduling [address] [place] [address] Gosia Marcos MD [address] [place] [address] Refill Request Social History Tobacco [...] a Med refill. Drug type:Lorazepam .5 mg Pharmacy:[facility] #[id number] Patient call back number: [phone] . documented in this encounter Plan of Treatment Upcoming Encounters Date Type Department Care Team (Late st Contact Info) Description 01/19/2025 11:30 AM SENIOR SERVICE AIDE Procedure visit [facility] - Urology [address] [place] [address] [address] [place] [address] Jose Oliver MD [facility] [place] [address] documented as of this encounter Goals Goal [...] on filedocumented in this encounter Care Teams Mine Car Repairer Relationship Specialty Start Date End Date Deisi Andrews MD [address] [place] [address] [place] [address] PCP - General Family Medicine 05/26/23 10/26/24 documented as of this encounter
--- OUTSIDE RECORDS SUMMARY | 2024-11-12 05:23 | XMS_ITS | Encounter Summary ---
Author Organization [facility] Address [address] [facility] [place] [address] Care Team Providers Care Concrete Gun Operator Name Role Phone Deisi Andrews MD Primary Care Provider [phone] Encounter Details Date Type Department Care Team [...] st Contact Info) Description 01/19/2025 11:30 AM SOAKER HIDES Procedure visit [facility] - Urology [address] [place] [address] [address] [place] [address] Jose Oliver MD [address] [place] [address] documented as of this encounter Goals Goal [...] on filedocumented in this encounter Care Teams Concrete Gun Operator Relationship Specialty Start Date End Date Deisi Andrews MD [address] [place] [address] PCP - General Family Medicine 05/26/23 10/26/24 documented as of this encounter
--- OUTSIDE RECORDS SUMMARY | 2024-11-12 05:23 | XMS_ITS | Encounter Summary ---
Author Organization [facility] Address [address] [facility] [place] [address] Care Team Providers Care Leather Coverer Name Role Phone Deisi Andrews MD Primary Care Provider [phone] Encounter Details Date Type Department Care Team (Late st Contact Info) Description 06/12/2024 Orders Only [facility] - Urology [address] [facility], [facility] [address] Monica Magallon LPN Pre-op testing ; Malignant [...] CDT 06/12- Faxed urine culture order to [facility] [phone]; called patient and left message to have urine culture performed. documented in this encounter Plan of Treatment Upcoming Encounters Date Type Department Care Team (Late st Contact Info) Description 01/19/2025 11:30 AM SOURCER Procedure visit [facility] - Urology [address] [place] [address] [address] [place] [address] Jose Oliver MD [address] [place] [address] Scheduled Orders Name Type Priority Associated Diagnoses [...] hematuria documented in this encounter Care Teams Leather Coverer Relationship Specialty Start Date End Date Deisi Andrews MD [address] [place] [address] DANNIE Rodríguez [phone] PCP - General Family Medicine 05/26/23 10/26/24 documented as of this encounter
--- OUTSIDE RECORDS SUMMARY | 2024-11-12 05:23 | XMS_ITS | Encounter Summary ---
Author Organization [facility] Health Address [address] [place] [address] Care Team Providers Care Commercial Analyst Name Role Phone Deisi Andrews MD Primary Care Provider [phone] Encounter Details Date Type Department Care Team (Late st Contact Info) Description 12/16/2023 Orders Only [facility] - Urology [address] [place] [address] [address] [place] [address] Jose Oliver MD [address] [place] [address] Other hydronephrosis Social History Tobacco [...] left ureteral balloon dilation and stent placement CIATE PROFESSOR OF MANAGEMENT documented in this encounter Plan of Treatment Upcoming Encounters Date Type Department Care Team (Late st Contact Info) Description 01/19/2025 11:30 AM ASSOCIATE PROFESSOR OF MANAGEMENT Procedure visit [facility] - Urology [address] [place] [address] [address] [place] [address] Jose Oliver MD [facility] [place] [address] documented as of this encounter Goals Goal [...] Primary documented in this encounter Care Teams Commercial Analyst Relationship Specialty Start Date End Date Deisi Andrews MD [address] [place] [address] DANN[place] Rodríguez [phone] PCP - General Family Medicine 05/26/23 10/26/24 documented as of this encounter
--- OUTSIDE RECORDS SUMMARY | 2024-11-12 05:23 | XMS_ITS | Encounter Summary ---
Author Organization [facility] Address [address] [facility] [place] [address] Care Team Providers Care Lead Technologist In Cytogenetics Name Role Phone Deisi Andrews MD Primary Care Provider Reason for Visit * Reason Comments Establish Care Cysto Encounter Details Date Type Department Care Team ([facility] Contact Info) Description 10/22/2023 11:30 AM LEAD DEVELOPER Procedure visit [facility] - Urology [address] [place] [address] [address] [place] [address] Jose Oliver MD [address] [place] [address] Malignant neoplasm of urinary bladder, unspecified site [...] Comments Blood Pressure 97/69 10/22/2023 11:31 AM LEAD DEVELOPER Pulse 92 10/22/2023 11:31 AM LEAD DEVELOPER Temperature 36.3 ??C (97.3 ??F) 10/22/2023 11:[address] Respiratory Rate 20 10/22/2023 11:31 AM LEAD DEVELOPER Oxygen Saturation 96% 10/22/2023 11:31 AM LEAD DEVELOPER Inhaled Oxygen Concentration - - Weight 83.5 kg (184 lb) 10/22/2023 11:31 AM LEAD DEVELOPER Height - - Body Mass Index 32.59 [...] today. Jose Oliver MD 10/22/2023 1:34 PM DEVELOPER documented in this encounter Plan of Treatment Upcoming Encounters Date Type Department Care Team (Late st Contact Info) Description 01/19/2025 11:30 AM LEAD DEVELOPER Procedure visit [facility] - Urology [address] [place] [address] [address] [place] [address] Jose Oliver MD [facility] [place] [address] documented as of this encounter Goals Goal [...] CARE (AMB) [facility] Routine 10/22/2023 10:55 AM LEAD DEVELOPER Malignant neoplasm of urinary bladder, unspecified site (HCC) documented in this encounter Results * URINALYSIS AUTO - POINT OF CARE (AMB) [facility] (10/22/2023 10:55 AM LEAD DEVELOPER) Glucose UA - [facility] [address] Bilirubin UA POCT - [facility] [address] Ketones UA POCT - [facility] [address] Specific Rockfall UA 1.[address] [facility] [address] Blood Urine POCT 3+ [facility] [address] pH UA 5.5 [facility] [address] Protein UA 1+ [facility] [address] Urobilinogen UA - [facility] [address] Nitrite UA - [facility] [address] WBC UA 15+ [facility] [address] Urine URINE / Unknown 10/22/2023 1 0:55 AM LEAD DEVELOPER Jose Oliver MD LAB - POINT OF CAR E ORDERABLES [facility] [address] [place] [address], [facility] [phone] documented in this encounter Visit Diagnoses Diagnosis Malignant neoplasm of urinary bladder, unspecified site (HCC)- Primary Microscopic hematuria documented in this encounter Care Teams Lead Technologist In Cytogenetics Relationship Specialty Start Date End Date Deisi Andrews MD [address] [place] DANN[place] Rodríguez [phone] PCP - General Family Medicine 05/26/23 10/26/24 documented as of this encounter
--- OUTSIDE RECORDS SUMMARY | 2024-11-12 05:23 | XMS_ITS | Encounter Summary ---
Author Organization [facility] Address [address] [place] [address] Care Team Providers Care Sales Development Associate Name Role Phone Deisi Andrews MD Primary Care Provider [phone] Reason for Visit * Reason Onset Date Comments Surgery Scheduling 12/23/2023 Called and go t patient scheduled for surgery per Dr oliver's orders . Surgery will be scheduled for 01/17/2024. Letter mailed/emailed/MyChart/verbal confirmation Raegan Armas 12/23/2023 9:20 AM Encounter Details Date Type Department Care Team (Late st Contact Info) Description 12/23/2023 Telephone [facility] - Urology [address] [place] [address], [facility] [place] [address] Jose Oliver MD [address] [place] [address] [place] [address] Surgery Scheduling (Called and got patient scheduled [...] mailed/emailed/MyChart/verbal confirmation Raegan Armas 12/23/2023 9:20 AM PHONE INFORMATION CLERK documented in this encounter Plan of Treatment Upcoming Encounters Date Type Department Care Team (Late st Contact Info) Description 01/19/2025 11:30 AM TELEPHONE INFORMATION CLERK Procedure visit [facility] - Urology [address] [place] [address] [address] [place] [address] Jose Oliver MD [address] [place] [address] documented as of this encounter Goals Goal [...] filedocumented in this encounter Care Teams Sales Development Associate Relationship Specialty Start Date End Date Deisi Andrews MD [address] [place] [address] [place] [phone] PCP - General Family Medicine 05/26/23 10/26/24 documented as of this encounter
--- OUTSIDE RECORDS SUMMARY | 2024-11-12 05:23 | XMS_ITS | Encounter Summary ---
Author Organization [facility] Address [address] [facility] [place] [address] Care Team Providers Care Heavy Equipment Operator/Paver Name Role Phone Deisi Andrews MD Primary Care Provider [phone] Encounter Details Date Type Department Care Team (Late st Contact Info) Description 11/24/2023 Orders Only [facility] - Urology [address] [place] [address] [address] [place] [address] Jose Oliver MD [address] OF UROLOGIC [place] [address] Social History Tobacco Use Types [...] Contact Info) Description 01/19/2025 11:30 AM TRUCK BENCH MECHANIC Procedure visit [facility] - Urology [address] [place] [address] [address] [place] [address] Jose Oliver MD [address] OF UROLOGIC [place] [address] documented as of this encounter Goals Goal [...] Diagnosis Comments CULTURE URINE 11/24/2023 1:43 PM TRUCK BENCH MECHANIC documented in this encounter Results * CULTURE URINE (11/24/2023 1:43 PM TRUCK BENCH MECHANIC) Culture [facility] Comment: ??CULTURE, URINE, ROUTINE ?Micro Number: ?[id number] ??Test Status: ? Final ??Specimen Source: ?? [...] Tube. REPORT COMMENT: FASTING:NO Test Performed at: [facility] ??[phone] GISELE JUSTICE MD 11/24/2023 1:43 PM TRUCK BENCH MECHANIC 11/24/2023 1:44 PM TRUCK BENCH MECHANIC Jose Oliver MD LAB - MICROBIOLOGY ORDERABLES Performing Organization Address City/State/[facility] Co de Phone Number [employer] [address] [place] [address] documented in this encounter Visit Diagnoses Not on filedocumented in this encounter Care Teams Heavy Equipment Operator/Paver Relationship Specialty Start Date End Date Deisi Andrews MD [address] [place] [address] DANN[place] Rodríguez [phone] PCP - General Family Medicine 05/26/23 10/26/24 documented as of this encounter
--- OUTSIDE RECORDS SUMMARY | 2024-11-12 05:23 | XMS_ITS | Encounter Summary ---
Author Organization [facility] Address [address] [facility] [place] [address] Care Team Providers Care It Consulting Director Name Role Phone Deisi Andrews MD Primary Care Provider [phone] Reason for Visit * Reason Onset Date Comments Surgery Scheduling 10/25/2023 Called harjit brooks and got her scheduled for surgery she chose 12/07/2023. Will send her Letter mailed/emailed/MyChart/verbal confirmation Encounter Details Date Type Department Care Team (Late st Contact Info) Description 10/25/2023 Telephone [facility] - Urology [address] [place] [address], [place] [address] Jose Oliver MD [address] [place] [address] DIV [place] [address] Surgery Scheduling (Called patient and [...] 12/07/2023. Will send her Letter mailed/emailed/MyChart/verbal confirmation RAILS DEVELOPER documented in this encounter Plan of Treatment Upcoming Encounters Date Type Department Care Team (Late st Contact Info) Description 01/19/2025 11:30 AM RUBY RAILS DEVELOPER Procedure visit [facility] - Urology [address] [place] [address] [address] [place] [address] Jose Oliver MD [address] [place] [address] documented as of this encounter Goals Goal [...] on filedocumented in this encounter Care Teams It Consulting Director Relationship Specialty Start Date End Date Deisi Andrews MD [address] [place] [address] DANN[place] Rodríguez [phone] PCP - General Family Medicine 05/26/23 10/26/24 documented as of this encounter
--- OUTSIDE RECORDS SUMMARY | 2024-11-12 05:23 | XMS_ITS | Encounter Summary ---
Author Organization [facility] Address [address] [facility] [place] [address] Care Team Providers Care Computing Tutor Name Role Phone Deisi Andrews MD Primary Care Provider [phone] Encounter Details Date Type Department Care Team [...] Info) Description 01/19/2025 11:30 AM HEALTH AND WELLNESS COACH Procedure visit [facility] - Urology [address] [facility] [address] [place] [address] Jose Oliver MD [address] [facility] [address] [facility] [place] [address] documented as of this encounter Goals Goal [...] on filedocumented in this encounter Care Teams Computing Tutor Relationship Specialty Start Date End Date Deisi Andrews MD [address] [place] [address] [place] [address] PCP - General Family Medicine 05/26/23 10/26/24 documented as of this encounter
--- OUTSIDE RECORDS SUMMARY | 2024-11-12 05:23 | XMS_ITS | Encounter Summary ---
Author Organization [facility] Address [address] [place] [address] Care Team Providers Care Compliance Director Name Role Phone Deisi Andrews MD Primary Care Provider [phone] Encounter Details Date Type Department Care Team (Late st Contact Info) Description 11/01/2023 Orders Only [facility] Urology [address] [facility], [place] [address] Monica Magallon LPN Social History Tobacco Use [...] Contact Info) Description 01/19/2025 11:30 AM SLIP COVER OPERATOR Procedure visit [facility] - Urology [address] [facility] [address] [place] [address] Jose Oliver MD [address] [place] [address] documented as of this encounter Goals Goal [...] on filedocumented in this encounter Care Teams Compliance Director Relationship Specialty Start Date End Date Deisi Andrews MD [address] [place] [address] D[place] Rodríguez [phone] PCP - General Family Medicine 05/26/23 10/26/24 documented as of this encounter
--- OUTSIDE RECORDS SUMMARY | 2024-11-12 05:23 | XMS_ITS | Encounter Summary ---
Author Organization [facility] Address [address] [facility] [place] [address] Care Team Providers Care Chemical Mixer Name Role Phone Deisi Andrews MD Primary Care Provider [phone] Reason for Visit * Auth/Cert (Routine) Specialty Diagnoses / Procedures Referred By Nacho brooks Referred To Contact Diagnoses Malignant neoplasm of urinary bladder, unspecified site (HCC) Malignant neoplasm of urinary bladder, unspecified site Procedures [facility] CYSTOURETHROSCOPY,FULGUR 2-5CM LESN VA CYSTOURETHROSCOPY,URETER CATHETER VA CYSTOSCOPY,INSERT URETERAL STENT TRANSURETHRAL RESECTION BLADDER TUMOR (TURBT) CYSTOSCOPY WITH RETROGRADE PYELOGRAM CYSTOSCOPY WITH INSERTION URETERAL STENT Referral ID Status Reason Start Date Expiration Date Visits Re quested Visits Authorized [id number] 1 1 Encounter Details Date Type Department Care Team (Late Contact Info) Description 12/07/2023 7:25 AM FILTRATION PLANT MECHANIC Anesthesia Event [facility] [address] [place] [address] Alicja Weaver MD [address] [facility] [place] [address] Jasmin Moore, BOILERMAKING SUPERVISOR-MACHINE SETTER AUTOMATIC [address] DEPT [place] [address] Anesthesia Record Procedure Summary Procedure Name Responsible [...] Care NOTABLE EVENTS: No notable events documented. RATION PLANT MECHANIC * Alicja Weaver MD - 11/22/2023 9:28 [...] imaging is normal. Recommend follow up with night guard. 12/31/21 TTE Findings consistent with mild effects [...] procedural Anesthetic Plan was discussed with the technical support assistant. This evaluation was based on PAT [...] surgeon's office and available for review in [place] 12/15/23) III. CIEDs: Does patient have a [...] OPTIMIZED - PAT EVALUATION COMPLETE Jasmin Moore, MEI-MACHINE SETTER AUTOMATIC 11/22/2023 11:57 AM for this procedure. Preoperative [...] for the 11/22/23 encounter (Hospital Encounter) with [facility] PAT ROOM 1. No [...] List Diagnosis Date Noted ??? CAD in [place] artery 10/24/2020 Priority: Not Prioritized ??? PAD (peripheral artery disease) ([facility]) Priority: Not Prioritized ??? MDD (recurrent major depressive disorder) in remission ([facility]) 08/05/2018 Priority: Not Prioritized ??? GIOVANNY (generalized anxiety disorder) 06/09/2017 ICD-10 update ??? Obesity 01/09/2017 ??? Nocturia 01/09/2017 ??? Personal history of transient ischemic attack (TIA), and cerebral infarction without residual deficits 01/09/2017 reported ??? Occlusion and stenosis of bilateral carotid arteries 01/09/2017 ??? Chronic pain syndrome 01/09/2017 ??? Type 2 diabetes mellitus with diabetic polyneuropathy ([facility]) 01/09/2017 EMG[facility] ??? Insomnia due to medical condition 01/09/2017 ??? Gastro-esophageal reflux disease without esophagitis 01/09/2017 ??? Primary osteoarthritis of one knee 01/09/2017 ??? Other asthma 01/09/2017 ??? Sleep related leg cramps 01/09/2017 ??? Other forms of angina pectoris 01/09/2017 ??? Essential (primary) hypertension 01/09/2017 ??? Hypersomnia due to medical condition 01/09/2017 ??? Chronic obstructive pulmonary disease ([facility]) 01/09/2017 ??? Personal history of traumatic brain injury 01/09/2017 Reports brief LOC. Age 17. ??? Restless legs syndrome 01/01/2017 ??? Obstructive sleep apnea 01/01/2017 ??? Cervicalgia 04/28/2015 ??? Other chronic pain 04/28/2015 Medical History: Past Medical History: Diagnosis Date ??? Anxiety ??? Asthma ??? Atherosclerosis of coronary artery ??? Bladder cancer ([facility]) ??? Chest pain pain 10/23 ??? Chronic obstructive pulmonary disease (COPD) ([facility]) ??? Depression ??? Essential hypertension ??? GERD (gastroesophageal reflux disease) ??? History of diabetes mellitus ??? Obesity ??? Peripheral vascular disease ([facility]) ??? Pure hypercholesterolemia ??? Sleep apnea does not use CPAP ??? Snoring ??? TIA (transient ischemic attack) Surgical History: Past Surgical History: Procedure Laterality Date ??? Cholecystectomy 2007 ??? HX C SECTION CLASSIC 1989 ??? HX CAROTID ENDARDECTOMY 2014 ??? HX TUBAL LIGATION 1989 ??? VA FOOT/TOES SURGERY PROC UNLISTED ??? TRANS URETHRAL RESECT BLADDER TUMOR 03/23/2022 TRANSURETHRAL RESECTION BLADDER TUMOR (TURBT) ??? TRANS URETHRAL RESECT BLADDER TUMOR N/A 01/18/2023 N/A; Blue light cystoscopy and transurethral resection of bladder tumor ??? Tympanostomy 2013 ??? URETEROSCOPY Left 03/23/2022 Left; URETEROSCOPY WEAPONS ELECTRICAL ENGINEERING OFFICER Status: No LMP recorded. Patient is postmenopausal. Postmenopausal OB History No obstetric history on file. Covid Vaccine: Lab Results: Recent Labs Component Name 10/22/23 1055 NITRITE - PROTEINUA 1+ No results found for requested labs within last 120 days. Recent Labs Result Component Current Result eGFR 75 (L) (10/22/2023) RATION PLANT MECHANIC documented in this encounter Procedure Notes [...] Jamey Rodriguez Anes Asst, Performed the procedure RATION PLANT MECHANIC documented in this encounter Miscellaneous Notes * [...] 0600 0.9% NaCl injection 3 mL [facility] Orders Report. -- Dispensed [...] receiving PACUteam. Jamey Rodriguez jr., Anes Asst RATION PLANT MECHANIC documented in this encounter Plan of Treatment Upcoming Encounters Date Type Department Care Team (Late st Contact Info) Description 01/19/2025 11:30 AM FILTRATION PLANT MECHANIC Procedure visit [facility] - Urology [address] [place] [address] [address] [place] [address] Joes Oliver MD [facility] [place] [address] documented as of this encounter Goals Goal [...] LARYNGEAL MASK AIRWAY Routine 12/07/2023 7:47 AM FILTRATION PLANT MECHANIC documented in this encounter Results * LARYNGEAL MASK [employer]WAY (12/07/2023 7:47 AM FILTRATION PLANT MECHANIC) Narrative Jr. Jamey Rodriguez Anes Asst - 12/07/2023 7:47 AM FILTRATION PLANT MECHANIC Jr. Jamey Rodriguez Anes Asst ? 12/07/2023 [...] Anesthesia Intra-op $ Given 12/07/2023 7:42 AM FILTRATION PLANT MECHANIC 2 g dexAMETHasone Sod Phosphate PF injection Intravenous, PRN, Starting on Wed12/07/23 at 0743, Until Wed12/07/23 at 0830, Anesthesia Intra-op $ Given 12/07/2023 7:43 AM FILTRATION PLANT MECHANIC 4 mg fentaNYL (PF) (Sublimaze) injection Intravenous, PRN, Starting on Wed12/07/23 at 0734, Until Wed12/07/23 at 0830, Anesthesia Intra-op $ Given 12/07/2023 8:10 AM FILTRATION PLANT MECHANIC 25 mcg $ Given 12/07/2023 8:08 AM FILTRATION PLANT MECHANIC 25 mcg $ Given 12/07/2023 7:57 AM FILTRATION PLANT MECHANIC 25 mcg lactated ringers infusion Intravenous, CONTINUOUS PRN, Starting on Wed12/07/23 at 0725, Until Wed12/07/23 at 0830, Anesthesia Intra-op $ New Bag/Syringe 12/07/2023 7:25 AM FILTRATION PLANT MECHANIC lidocaine HCl (PF) (Xylocaine MPF) 2 % injection Intravenous, PRN, Starting on Wed12/07/23 at 0735, Until Wed12/07/23 at 0830, Anesthesia Intra-op $ Given 12/07/2023 7:35 AM FILTRATION PLANT MECHANIC 100 mg midazolam (Versed) injection Intravenous, PRN, Starting on Wed12/07/23 at 0725, Until Wed12/07/23 at 0830, Anesthesia Intra-op $ Given 12/07/2023 7:25 AM FILTRATION PLANT MECHANIC 2 mg ondansetron (Zofran) injection Intravenous, PRN, Starting on Wed12/07/23 at 0814, Until Wed12/07/23 at 0830, Anesthesia Intra-op $ Given 12/07/2023 8:14 AM FILTRATION PLANT MECHANIC 4 mg propofol (Diprivan) injection Intravenous, PRN, Starting on Wed12/07/23 at 0735, Until Wed12/07/23 at 0830, Anesthesia Intra-op $ Given 12/07/2023 7:35 AM FILTRATION PLANT MECHANIC 150 mg documented in this encounter Care Teams Chemical Mixer Relationship Specialty Start Date End Date Deisi Andrews MD [address] [place] [address] PCP - General Family Medicine 05/26/23 10/26/24 documented as of this encounter
--- OUTSIDE RECORDS SUMMARY | 2024-11-12 05:23 | XMS_ITS | Encounter Summary ---
Author Organization [facility] Address [address] [facility] [place] [address] Care Team Providers Care Program Director/Traffic Director Name Role Phone Deisi Andrews MD Primary Care Provider [phone] Reason for Visit * Auth/Cert (Routine) Specialty Diagnoses / Procedures Referred By Nacho brooks Referred To Contact Diagnoses Malignant neoplasm of urinary bladder, unspecified site (HCC) Malignant neoplasm of urinary bladder, unspecified site Procedures [place] CYSTOURETHROSCOPY,FULGUR 2-5CM LESN NH CYSTOURETHROSCOPY,URETER CATHETER NH CYSTOSCOPY,INSERT URETERAL STENT TRANSURETHRAL RESECTION BLADDER TUMOR (TURBT) CYSTOSCOPY WITH RETROGRADE PYELOGRAM CYSTOSCOPY WITH INSERTION URETERAL STENT Referral ID Status Reason Start Date Expiration Date Visits Re quested Visits Authorized [id number] 1 1 Encounter Details Date Type Department Care Team (Latest Contact Info) Description 12/07/2023 7:38 PM LAMINATOR PRINTED CIRCUIT BOARDS - 12/07/2023 11:59 PM [facility] Hospital Encounter [facility] [address] [place] [address] Jose Oliver MD [address] [facility] [address] [facility] [place] [address] Discharge Disposition: Home or Self Care Social [...] 2 moderate COPD by GOLD classification ([facility]) Inhale 2 (two) puffs by mouth every [...] 12 hours 10/28/2023 vitamin D, ergocalciferol, (DRISDOL) 80493 UNITS capsule Take 1 (one) capsule by [...] gnsaima neoplasm of urinary bladder, unspecified site ([facility]),Bladder spasms,Urinary frequency Take 1 (one) tablet by mouth once daily 90 tablet 4 11/01/2023 09/01/2024 oxyCODONE, immediate release, (Roxicodone) 5 MG tabletIndications:Anastasiya gnsaima neoplasm of urinary bladder, unspecified site ([facility]) Take 1 (one) tablet by mouth every 6 hours as needed for Pain 6 tablet 12/07/2023 01/06/2024 pantoprazole EC (PROTONIX) 40 MG tabletIndications:need follow up visit for further [phone] option 1 Take 1 (one) tablet by mouth once daily Reasons: need follow up visit for further [phone] option 1 90 tablet 3 01/23/2022 06/15/2024 Symbicort 160-4.5 MCG/ACT inhalerIndications:Sta ge 2 moderate COPD by GOLD classification ([facility]) INHALE 2 PUFFS BY MOUTH TWICE DAILY 10.2 g 07/07/2023 06/15/2024 traZODone (Desyrel) 50 MG tablet Take 1 (one) tablet by mouth nightly as needed For insomnia. 30 tablet 1 11/19/2023 01/06/2024 documented as of this encounter Plan of Treatment Upcoming Encounters Date Type Department Care Team (Late st Contact Info) Description 01/19/2025 11:30 AM LAMINATOR PRINTED CIRCUIT BOARDS Procedure visit [facility] - Urology [address] [place] [address] [address] [place] [address] Jose Oliver MD [address] [address] documented as of this encounter Goals Goal [...] [place] CYSTO SURGERY Routine 12/07/2023 8:10 PM LAMINATOR PRINTED CIRCUIT BOARDS Malignant neoplasm of urinary bladder, unspecified site (HCC) documented in this encounter Results * [place] CYSTO SURGERY (12/07/2023 8:10 PM LAMINATOR PRINTED CIRCUIT BOARDS) Narrative [facility] - 12/07/2023 8:10 PM LAMINATOR PRINTED CIRCUIT BOARDS Fluoroscopy was used for this exam in the OR. Please see the Operative report. Jose Oliver MD FLUOROSCOPY KALIN BARBER [facility] documented in this encounter Visit Diagnoses Not on filedocumented in this encounter Care Teams Program Director/Traffic Director Relationship Specialty Start Date End Date Deisi Andrews MD [address] [place] [address] PCP - General Family Medicine 05/26/23 10/26/24 documented as of this encounter
--- OUTSIDE RECORDS SUMMARY | 2024-11-12 05:23 | XMS_ITS | Encounter Summary ---
Author Organization [facility] Address [address] [place] [address] Care Team Providers Care Manager Speech Name Role Phone Deisi Andrews MD Primary Care Provider [phone] Encounter Details Date Type Department Care Team [...] st Contact Info) Description 01/19/2025 11:30 AM CERTIFIED HYPERBARIC TECHNOLOGIST Procedure visit [facility] - Urology [address] [facility] [address] [place] [address] Jose Oliver MD [address] [place] [address] documented as of this encounter Goals Goal [...] filedocumented in this encounter Care Teams Manager Speech Relationship Specialty Start Date End Date Deisi Andrews MD [address] [place] [address] PCP - General Family Medicine 05/26/23 10/26/24 documented as of this encounter
--- OUTSIDE RECORDS SUMMARY | 2024-11-12 05:23 | XMS_ITS | Encounter Summary ---
Author Organization [facility] Address [address] [place] [address] Care Team Providers Care Die Trouble Shooter Name Role Phone Deisi Andrews MD Primary Care Provider [phone] Reason for Referral * Radiology Services (Routine) - Closed Specialty Diagnoses / Procedures Referred By Contac t Referred To Contact CT Scan Diagnoses Malignant neoplasm of urinary bladder, unspecified site (HCC) Procedures CT UROGRAM Jose Oliver MD [address] [place] [address] Referral ID Status Reason Start Date Expiration Date Visits Re quested Visits Authorized [id number] Closed 08/26/2023 08/25/2024 1 1 ATRIC LICENSED PRACTICAL NURSE Reason for Visit * Radiology Services (Routine) - Closed Specialty Diagnoses / Procedures Referred By Nacho brooks Referred To Contact CT Scan Diagnoses Malignant neoplasm of urinary bladder, unspecified site (HCC) Procedures CT UROGRAM Jose Oliver MD [address] [place] [address] Referral ID Status Reason Start Date Expiration Date Visits Re quested Visits Authorized [id number] Closed 08/26/2023 08/25/2024 1 1 Encounter Details Date Type Department Care Team (Latest Contact Info) Description 10/22/2023 8:48 AM PEDIATRIC LICENSED PRACTICAL NURSE - 10/22/2023 11:59 PM PEDIATRIC LICENSED PRACTICAL NURSE Hospital Encounter [facility] Health Imaging Services - CT Scan [address] [place] [address] Jose Oliver MD [address] [address] Discharge Disposition: Home or Self Care Social [...] ge 2 moderate COPD by GOLD classification ([facility]) Inhale 2 (two) puffs by mouth every [...] tablet 4 12/08/2021 vitamin D, ergocalciferol, (DRISDOL) 05082 UNITS capsule Take 1 (one) capsule by [...] MG tabletIndications:need follow up visit for further [phone] option 1 Take 1 (one) tablet by mouth once daily Reasons: need follow up visit for further [phone] option 1 90 tablet 3 01/23/2022 06/15/2024 [...] needle guidance. See doc flowsheet for details. ATRIC LICENSED PRACTICAL NURSE documented in this encounter Plan of Treatment Upcoming Encounters Date Type Department Care Team (Late st Contact Info) Description 01/19/2025 11:30 AM PEDIATRIC LICENSED PRACTICAL NURSE Procedure visit [facility] - Urology [address] [place] [address] [address] [place] [address] Jose Oliver MD [address] [address] Scheduled Orders Name Type Priority Associated Diagnoses [...] Comments CT UROGRAM Routine 10/22/2023 10:10 AM PEDIATRIC LICENSED PRACTICAL NURSE Malignant neoplasm of urinary bladder, unspecified site (HCC) CREATININE - POCT INTERFACED Routine 10/22/2023 9:03 AM PEDIATRIC LICENSED PRACTICAL NURSE documented in this encounter Results * CT UROGRAM (10/22/2023 10:10 AM PEDIATRIC LICENSED PRACTICAL NURSE) Anatomical Region Laterality Modality Abdomen, Pelvis Computed Tomogra phy 10/22/2023 10:3 5 AM PEDIATRIC LICENSED PRACTICAL NURSE Impressions 10/22/2023 10:45 AM PEDIATRIC LICENSED PRACTICAL NURSE IMPRESSION: 1. An infiltrative bladder mass on [...] 10/22/2023 10:45 AM Narrative 10/22/2023 10:45 AM PEDIATRIC LICENSED PRACTICAL NURSE PROCEDURE: ??CT UROGRAM DATE/TIME OF EXAM: ??10/22/2023 [...] CREATININE - POCT INTERFACED (10/22/2023 9:03 AM PEDIATRIC LICENSED PRACTICAL NURSE) Creatinine POCT 0.88 0.70 - 1.20 mg/dL 10/22/2023 9:14 AM PEDIATRIC LICENSED PRACTICAL NURSE [facility] eGFR 75(L) >=90 mL/min/1.7 3 m2 10/22/2023 9:14 AM PEDIATRIC LICENSED PRACTICAL NURSE [facility] Blood BLOOD SPECIMEN / Unknown 10/22/2023 9:03 AM PEDIATRIC LICENSED PRACTICAL NURSE 10/22/2023 9:14 AM PEDIATRIC LICENSED PRACTICAL NURSE Jose Oliver MD LAB - POINT OF CAR E ORDERABLES [facility] [address] [place] [address] documented in this encounter Visit [...] with contrast. $ Given 10/22/2023 9:38 AM PEDIATRIC LICENSED PRACTICAL NURSE 10 mL 0.9% NaCl IV flush bag 0-250 mL, Intracatheter, ONCE PRN, Contrast flush, 1 dose, Starting on Wed10/22/23 at 0933, Until Wed10/22/23 at 0938, For administration with contrast $ Given 10/22/2023 9:38 AM PEDIATRIC LICENSED PRACTICAL NURSE 50 mL iopamidol (Isovue 370) 76 % contrast Intravenous, CONTRAST ONCE, Starting on Wed10/22/23 at 0933, Until 10/23/23 at 0135 $ Given - Contrast 10/22/2023 9:37 AM PEDIATRIC LICENSED PRACTICAL NURSE 100 mL documented in this encounter Care Teams Die Trouble Shooter Relationship Specialty Start Date End Date Deisi Andrews MD [address] [place] [phone] PCP - General Family Medicine 05/26/23 10/26/24 documented as of this encounter
--- OUTSIDE RECORDS SUMMARY | 2024-11-12 05:23 | XMS_ITS | Encounter Summary ---
Author Organization [facility] Address [address] [facility] [place] [address] Care Team Providers Care Food And Beverage Service Manager Name Role Phone Deisi Andrews MD Primary Care Provider [phone] Encounter Details Date Type Department Care Team (Latest Contact Info) Description 11/22/2023 9:27 AM PSYCHIATRIC SPECIALIST - 11/22/2023 9:59 AM [facility] Hospital Encounter [facility] PAT [address] [place] [phone] Jose Oliver MD [address] [facility] [address] [facility] [place] [id number] Urology Discharge Disposition: Home or Self Care [...] Comments Blood Pressure 128/80 11/22/2023 9:27 AM PSYCHIATRIC SPECIALIST Pulse 79 11/22/2023 9:27 AM PSYCHIATRIC SPECIALIST Temperature 37.1 ??C (98.8 ??F) 11/22/2023 9:27 AM CS T Respiratory Rate 18 11/22/2023 9:27 AM PSYCHIATRIC SPECIALIST Oxygen Saturation 93% 11/22/2023 9:27 AM PSYCHIATRIC SPECIALIST Inhaled Oxygen Concentration - - Weight 83.9 kg (184 lb 14.4 oz) 11/22/2023 9:27 AM PSYCHIATRIC SPECIALIST Height 160 cm (5' 3 ) 11/22/2023 9:27 AM PSYCHIATRIC SPECIALIST Body Mass Index 32.75 11/22/2023 9:27 AM PSYCHIATRIC SPECIALIST documented in this encounter Functional Status Functional [...] 2 moderate COPD by GOLD classification ([facility]) Inhale 2 (two) puffs by mouth [...] 12 hours 10/28/2023 vitamin D, ergocalciferol, (DRISDOL) 32469 UNITS capsule Take 1 (one) capsule by [...] gnant neoplasm of urinary bladder, unspecified site ([facility]),Bladder spasms,Urinary frequency Take 1 (one) tablet by mouth once daily 90 tablet 4 11/01/2023 09/01/2024 oxyCODONE, immediate release, (Roxicodone) 5 MG tabletIndications:Anastasiya gnant neoplasm of urinary bladder, unspecified site ([facility]) Take 1 (one) tablet by mouth every 6 hours as needed for Pain 6 tablet 12/07/2023 01/06/2024 pantoprazole EC (PROTONIX) 40 MG tabletIndications:need follow up visit for further [phone] option 1 Take 1 (one) tablet by mouth once daily Reasons: need follow up visit for further [phone] option 1 90 tablet 3 01/23/2022 06/15/2024 Symbicort 160-4.5 MCG/ACT inhalerIndications:Sta ge 2 moderate COPD by GOLD classification ([facility]) INHALE 2 PUFFS BY MOUTH TWICE DAILY 10.2 g 07/07/2023 06/15/2024 traZODone (Desyrel) 50 MG tablet Take 1 (one) tablet by mouth nightly as needed For insomnia. 30 tablet 1 11/19/2023 01/06/2024 documented as of this encounter Plan of Treatment Upcoming Encounters Date Type Department Care Team (Late st Contact Info) Description 01/19/2025 11:30 AM PSYCHIATRIC SPECIALIST Procedure visit [facility] - Urology [address] [place] [address] [address] [place] [phone] Jose Oliver MD [address] [place] [phone] documented as of this encounter Goals Goal [...] HEMOGLOBIN A1C [IN-HOUSE TEST] (11/22/2023 10:36 AM [facility]) Hemoglobin A1c 6.4(H) <=5.6 % 11/22/2023 12:05 PM [facility] Estimated Average Glucose 137 mg/dL 11/22/2023 12:05 PM [facility] Comment: HbA1c Interpretation: Normal : < 5.7% Pre-diabetes: 5.7-6.4% Diabetes: Equal to or greater than 6.5% Test results diagnostic of diabetes should be repeated for confirmation. Treatment target values recommended by ADA and other clinical organizations should be used to evaluate metabolic control in patients. Reference: [place] Diabetes Association, Standards of Care in Diabetes -2020 In patients 70 years and older consider HbA1c target range of 7.0-7.5% (Reference: Montez Roass et al. JAMDA. 2012) The Sebia assay for the measurement of HbA1c is a National Glycohemoglobin Standardization Program (NGSP) certified method. Blood BLOOD SPECIMEN WITH EDTA / Unknown Lab Venipuncture / Unknown 11/22/2023 10:36 AM PSYCHIATRIC SPECIALIST 11/22/2023 10:42 AM [facility] Jasmin Moore DIRECTOR OF MANUFACTURING OPERATIONS-MUNICIPAL MAINTENANCE WORKER LAB - CHEMISTRY ORDERABLES [address] [phone], [facility] [phone] * CBC W/O DIFFERENTIAL (11/22/2023 10:36 AM [facility]) WBC 9.9 4.0 - 10.7 x10E9/L 11/22/2023 10:54 AM [facility] RBC Count 4.94 3.90 - 5.20 x10E12/L 11/22/2023 10:54 AM [facility] Hemoglobin 13.6 11.9 - 15.8 g/dL 11/22/2023 10:54 AM [facility] Hematocrit 40.8 34.8 - 46.1 % 11/22/2023 10:54 AM [facility] MCV 82.6 80.0 - 98.0 fL 11/22/2023 10:54 AM [facility] MCH 27.5 26.7 - 33.6 pg 11/22/2023 10:54 AM [facility] MCHC 33.3 31.7 - 36.3 g/dL 11/22/2023 10:54 AM [facility] RDW-CV 14.1 11.3 - 14.8 % 11/22/2023 10:54 AM [facility] Platelet Count 260 150 - 420 x10E9/L 11/22/2023 10:54 AM [facility] MPV 10.1 7.8 - 11.4 fL 11/22/2023 10:54 AM [facility] Blood BLOOD SPECIMEN / Unknown Lab Venipuncture / Unknown 11/22/2023 10:36 AM [facility] 11/22/2023 10:42 AM [facility] Jasmin Moore DIRECTOR OF MANUFACTURING OPERATIONS-MUNICIPAL MAINTENANCE WORKER LAB - HEMATOLOGY ORDERABLES Performing Organization Address [facility]/State/[facility] Co de Phone Number [facility] [address] [place] [phone] [phone] * (ABNORMAL) BASIC METABOLIC PANEL (CALCIUM TOTAL) (11/22/2023 10:36 AM [facility]) BUN 25 7 - 26 mg/dL 11/22/2023 11:14 AM [facility] Creatinine 0.72 0.56 - 0.96 mg/dL 11/22/2023 11:14 AM [facility] Sodium 141 136 - 145 mmol/L 11/22/2023 11:14 AM [facility] Potassium 4.3 3.5 - 4.5 mmol/L 11/22/2023 11:14 AM [facility] Chloride 107 98 - 107 mmol/L 11/22/2023 11:14 AM [facility] CO2 25 22 - 29 mmol/L 11/22/2023 11:14 AM [facility] Glucose 126(H) 70 - 115 mg/dL 11/22/2023 11:14 AM [facility] Calcium 9.1 8.4 - 10.2 mg/dL 11/22/2023 11:14 AM [facility] Anion Gap 9 6 - 16 11/22/2023 11:14 AM [facility] BUN/Creatinine Ratio 35(H) 7 - 23 11/22/2023 11:14 AM [facility] Osmolality Calculated 298(H) 275 - 295 mOsm/kg 11/22/2023 11:14 AM [facility] eGFR by CKD-EPI >90 >=90 mL/min/1.7 3 m2 11/22/2023 11:14 AM [facility] Blood BLOOD SPECIMEN / Unknown Lab Venipuncture / Unknown 11/22/2023 10:36 AM PSYCHIATRIC SPECIALIST 11/22/2023 10:43 AM [facility] Jasmin Moore DIRECTOR OF MANUFACTURING OPERATIONS-MUNICIPAL MAINTENANCE WORKER LAB - CHEMISTRY ORDERABLES [facility] [address] [place] [address] [phone] documented in this encounter Visit Diagnoses Diagnosis Pre-op exam- Primary Preoperative examination, unspecified documented in this encounter Care Teams Food And Beverage Service Manager Relationship Specialty Start Date End Date Deisi Andrews MD [address] [place] [address] PCP - General Family Medicine 05/26/23 10/26/24 documented as of this encounter
--- OUTSIDE RECORDS SUMMARY | 2024-11-12 05:23 | XMS_ITS | Encounter Summary ---
Author Organization [facility] [employer] Address [address] [facility] [place] [address] Care Team Providers Care Excellence Coach Name Role Phone Desii Andrews MD Primary Care Provider [phone] Reason for Visit * Auth/Cert (Routine) Specialty Diagnoses / Procedures Referred By Nacho brooks Referred To Contact Diagnoses Malignant neoplasm of urinary bladder, unspecified site (HCC) Malignant neoplasm of urinary bladder, unspecified site Procedures NE CYSTOURETHROSCOPY,FULGUR 2-5CM LESN NE CYSTOURETHROSCOPY,URETER CATHETER NE CYSTOSCOPY,INSERT URETERAL STENT TRANSURETHRAL RESECTION BLADDER TUMOR (TURBT) CYSTOSCOPY WITH RETROGRADE PYELOGRAM CYSTOSCOPY WITH INSERTION URETERAL STENT Referral ID Status Reason Start Date Expiration Date Visits Re quested Visits Authorized [id number] 1 1 Encounter Details Date Type Department Care Team (Late Contact Info) Description 12/07/2023 7:30 AM RIM FIRE PRIMING TOOL SETTER - 12/07/2023 9:05 AM [facility] Surgery [facility] [address] [place] [phone] Jose Oliver MD [address] [facility] 2L DIV [place]IC [place] [phone] TRANSURETHRAL RESECTION BLADDER TUMOR (TURBT) Surgery Details Date/Time Status Location OR Service Patient Class Case Class Case Type Trauma Case? 12/07/2023 7:30 AM Posted [facility] OR OR Urology Surgery Day Care Elective [...] Comments Blood Pressure 114/51 12/07/2023 9:05 AM RIM FIRE PRIMING TOOL SETTER Pulse 65 12/07/2023 9:05 AM RIM FIRE PRIMING TOOL SETTER Temperature 36.3 ??C (97.3 ??F) 12/07/2023 8:25 AM CS T Respiratory Rate 11 12/07/2023 9:05 AM RIM FIRE PRIMING TOOL SETTER Oxygen Saturation 93% 12/07/2023 9:05 AM RIM FIRE PRIMING TOOL SETTER Inhaled Oxygen Concentration - - Weight 83 kg (183 lb) 12/07/2023 6:23 AM RIM FIRE PRIMING TOOL SETTER Height 160 cm (5' 3 ) 12/07/2023 6:23 AM RIM FIRE PRIMING TOOL SETTER Body Mass Index 32.42 12/07/2023 6:23 AM RIM FIRE PRIMING TOOL SETTER documented in this encounter Functional Status Functional [...] Kenan Argueta MD - 12/07/2023 8:50 AM RIM FIRE PRIMING TOOL SETTER Images from the original note were not included. [facility]rology You had a procedure called [...] to cancel orreschedule the appointment please call [phone]. The [facility] is located at [address] [place] [address], [address], [place] [address]. The phone number to clinic is [phone] if you need to cancel or re-schedule. Please arrive 15 minutes early. The [facility] is located at the [facility] level 2. The phone number is [phone]. The address is [address] [place] [address]. [facility] [address]. Please arrive 15 minutes early to your appointment. Post Operative Pain Control: - You can take Tylenol (acetaminophen) and Motrin (Ibuprofen) in alternating fashion every 4-6 hours, especially in the first 24-48 hours after surgery, then as needed thereafter. - You may also be prescribed narcotic pain medication such as Oxycodone, Awendaw, or Tramadol. This should be taken as needed for severe pain only. Do not drink alcohol, drive, or operate heavy machinery while taking this type of medication. If the narcotic is Awendaw, please understand that Awendaw has Tyelonol in it. If you are [...] surgery or the recovery process, please contact [facility] [phone] (Option #1: scheduling, Option #2 Nurse line, Option #3 surgery scheudler, Option#4 administration) on weekdays during regular business hours. If you have an urgent or emergent question on a weekend or after regular business hours, please contact [facility] at [phone] and ask for the provider online merchandising manager for Urology. In addition, please contact us [...] to the touch, or non-clear, foul-smelling drainage) FIRE PRIMING TOOL SETTER documented in this encounter Medications at Time [...] 12 hours 10/28/2023 vitamin D, ergocalciferol, (DRISDOL) 80040 UNITS capsule Take 1 (one) capsule by [...] MG tabletIndications:need follow up visit for further [phone] option 1 Take 1 (one) tablet by mouth once daily Reasons: need follow up visit for further [phone] option 1 90 tablet 3 01/23/2022 06/15/2024 Symbicort 160-4.5 MCG/ACT inhalerIndications:Sta ge 2 moderate COPD by GOLD classification (HCC) INHALE 2 PUFFS BY MOUTH TWICE DAILY 10.2 g 07/07/2023 06/15/2024 traZODone (Desyrel) 50 MG tablet Take 1 (one) tablet by mouth nightly as needed For insomnia. 30 tablet 1 11/19/2023 01/06/2024 documented as of this encounter H&P Notes * Belkys Taylor, MEI-QUALITY ASSURANCE/R&D LAB TECHNICIAN - 12/07/2023 6:22 AM CST [facility] Division of Urologic Surgery Pre-Operative H&P [...] OTHER SURGERY excision of anal warts ??? NE FOOT/TOES SURGERY PROC UNLISTED ??? 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 0.9% NaCl injection 1-10 mL 1-10 mL Intracatheter PRN Xiomara Tay HIGH SCHOOL MUSIC TEACHER-QUALITY ASSURANCE/R&D LAB TECHNICIAN ??? acetaminophen (Tylenol) tablet 1,000 mg 1,000 mg Oral pre-OP once Jasmin Moore APRN-CNP ??? ceFAZolin (Ancef) 2 g in 0.9% NaCl IV 50 mL IVPB 2 g Intravenous intra-OP once Xiomara Tay APRN-QUALITY ASSURANCE/R&D LAB TECHNICIAN ??? insulin regular human (HumuLIN R; NovoLIN R) 100 UNIT/ML injection 0-6 Units 0-6 Units Intravenous Once Jasmin Moore APRN-CNP ??? lactated ringers infusion Intravenous Continuous Xiomara Tay APRN-QUALITY ASSURANCE/R&D LAB TECHNICIAN ??? lactated ringers infusion Intravenous pre-OP [...] Ref Range Status 10/22/2023 - Final Specific [place] UA Date Value Ref Range Status 10/22/2023 1.000 Final Nitrite UA Date Value Ref Range Status 10/22/2023 - Final Mirco: No results for input(s): URINECULT in the last [address] hours. CULTURE URINE Order: [id number] Collected 11/24/2023 13:43 ?? Status: Final result ?? Visible to patient: No (not released) ?? 0 Result Notes Component Culture Comment: ?? CULTURE, URINE, ROUTINE ? Micro Number: ?[id number] ?? Test Status: ? Final ?? Specimen Source: ?? Urine, clean catch ?? Specimen Quality: ??Adequate ?? Result: ?Mixed genital unruly isolated. These superficial ?bacteria are not indicative of a urinary tract ?infection. No further organism identification is ?warranted on this specimen. If clinically ?indicated, recollect clean-catch, mid-stream ?urine and transfer immediately to Urine Culture ?Transport Tube. REPORT COMMENT: FASTING:NO Test Performed at: [facility] [address] ??[id number] GISELE JUSTICE MD Pathology: Most recent pathology [...] obtained and placed in chart. Belkys Taylor APRN-QUALITY ASSURANCE/R&D LAB TECHNICIAN 12/07/2023 6:22 AM FIRE PRIMING TOOL SETTER documented in this encounter OR Notes * [...] Kenan Argueta MD - Resident - Assisting Millinery Designer(s): non Anesthesia Type: general LMA Complications: none [...] MD 12/07/2023 0811 C : Left Ureteral Waleska Biopsy Biopsy, Excision Soft Tissue, Other PATHOLOGY TISSUE Jose Oliver MD 12/07/2023 0813 Implant(s): * No implants in log * Kenan Argueta MD FIRE PRIMING TOOL SETTER * Operative - Jose Oliver MD - [...] draped in sterile fashion. We placed a 25-Eritrean continuous flow resectoscope through the urethra into [...] good hemostatic effect. We then used a 22-Eritrean scope and cannulated the left ureter with a 5-Eritrean open-ended catheter and performed a retrograde pyelogram. [...] determine next steps in care. MD KAPIL Craig/fowler .[id number] .[id number] Doc ID: [id number] Voice Job ID: [id number] FIRE PRIMING TOOL SETTER documented in this encounter Plan of Treatment Upcoming Encounters Date Type Department Care Team (Late st Contact Info) Description 01/19/2025 11:30 AM RIM FIRE PRIMING TOOL SETTER Procedure visit [facility] - Urology [address] [place] [address] [address] [place] [phone] Jose Oliver MD [address] [place] [address] documented as of this encounter Goals Goal [...] FL CYSTO SURGERY Routine 12/07/2023 8:10 PM RIM FIRE PRIMING TOOL SETTER Malignant neoplasm of urinary bladder, unspecified site (HCC) GLUCOSE - POINT OF CARE Routine 12/07/2023 8:38 AM RIM FIRE PRIMING TOOL SETTER CYTOLOGY NON-PELT INSPECTOR PANEL (STL) Routine 12/07/2023 8:21 AM RIM FIRE PRIMING TOOL SETTER Malignant neoplasm of urinary bladder, unspecified site (HCC) PATHOLOGY TISSUE Routine 12/07/2023 7:55 AM RIM FIRE PRIMING TOOL SETTER Malignant neoplasm of urinary bladder, unspecified site (HCC) NE CYSTO/URETERO/GEORGES LOSCOPY, DX 12/07/2023 7:45 AM RIM FIRE PRIMING TOOL SETTER Malignant neoplasm of urinary bladder, unspecified site (HCC) Case Notes Reviewed 11/29 NE CYSTOURETHROSCOPY ,URETER CATHETER 12/07/2023 7:45 AM RIM FIRE PRIMING TOOL SETTER Malignant neoplasm of urinary bladder, unspecified site (HCC) Case Notes Reviewed 11/29 NE CYSTOURETHROSCOPY ,FULGUR 2-5CM LESN 12/07/2023 7:45 AM RIM FIRE PRIMING TOOL SETTER Malignant neoplasm of urinary bladder, unspecified site (HCC) Case Notes Reviewed 11/29 GLUCOSE - POINT OF CARE Routine 12/07/2023 6:31 AM RIM FIRE PRIMING TOOL SETTER documented in this encounter Results * FL CYSTO SURGERY (12/07/2023 8:10 PM RIM FIRE PRIMING TOOL SETTER) Narrative [facility] - 12/07/2023 8:10 PM RIM FIRE PRIMING TOOL SETTER Fluoroscopy was used for this exam in the OR. Please see the Operative report. Jose Oliver MD FLUOROSCOPY ORDERA BLES [facility] * (ABNORMAL) GLUCOSE - POINT OF CARE (12/07/2023 8:38 AM RIM FIRE PRIMING TOOL SETTER) Pathologist [facility] Glucose WB/POC 135(H) 70 - 115 mg/dL 12/07/2023 8:43 AM RIM FIRE PRIMING TOOL SETTER [facility] Specimen Type Cap Fingerstick 2023 8:43 AM RIM FIRE PRIMING TOOL SETTER [facility] Blood BLOOD SPECIMEN / Unknown 12/07/2023 8:38 AM RIM FIRE PRIMING TOOL SETTER 12/07/2023 8:43 AM RIM FIRE PRIMING TOOL SETTER Jose Oliver MD LAB - POINT OF CAR E ORDERABLES [facility] [address] [address], [facility] [phone] * CYTOLOGY NON-PELT INSPECTOR PANEL (STL) (12/07/2023 8:21 AM RIM FIRE PRIMING TOOL SETTER) Case Report Medical Cytology Report ? Case: [id number] ? Authorizing Provider: ??Jose Oliver MD ?Collected: ? 12/07/2023 08:21 AM ? Ordering Location: ? [facility] ?Received: ?12/07/2023 02:59 PM ? Pathologist: ? Jose Rico MD ? Specimen: ?Body Fluid , left ureteral ? 12/09/2023 12:32 PM [facility] Specimen Adequacy Adequate cellularity for evaluation. 12/09/2023 12:32 PM [facility] Final Diagnosis Left ureter, cytology from cystoscopy: - Atypical urothelial cells 12/09/2023 12:32 PM [facility] Clinical History The [...] no obvious papillary mass. 12/09/2023 12:32 PM [facility] Gross Description 1 pap stained cytospin slide from 10cc pink fluid 12/09/2023 12:32 PM [facility] Microscopic Description Microscopic examination substantiates the final diagnosis. 12/09/2023 12:32 PM [facility] Pathologist Location at [facility] 12/09/2023 12:32 PM [facility] Disclaimer The performance [...] were developed by the [facility]ology [facility] of [facility] and have not been cleared or approved [...] the attending (teaching) pathologist. 12/09/2023 12:32 PM [facility] Embedded Images 12/09/2023 12:32 PM [facility] Pathology/Cytolo gy BODY FLUID SPECIMEN / Unknown Collection / Unknown 12/07/2023 8:21 AM RIM FIRE PRIMING TOOL SETTER 12/07/2023 2:59 PM RIM FIRE PRIMING TOOL SETTER Jose Oliver MD LAB - PATHOLOGY/CY TOLOGY ORDERABLES Performing Organization Address [facility] Co de Phone Number [facility] [address] [phone] * PATHOLOGY TISSUE (12/07/2023 7:55 AM RIM FIRE PRIMING TOOL SETTER) Case Report Surgical Pathology Report ? Case: [id number] ? Authorizing Provider: ??Jose Oliver MD ?Collected: ? 12/07/2023 07:55 AM ? Ordering Location: ? [facility] ?Received: ?12/07/2023 01:29 PM ? Pathologist: ? Memo Suarez MD ? Specimens: ?? A) - Bladder Biopsy, Bladder Tumor ? B) - Ureter Biopsy, Left Ureteral Waleska Biopsy ? 12/09/2023 3:44 PM [facility] Final Diagnosis Urinary bladder, tumor, biopsy (A): - Fragments of predominantly denuded urothelium with follicular cystitis - No definite muscularis propria present - Negative for carcinoma Ureter, left, biopsy (B): - No diagnostic tissue present, see comment 12/09/2023 3:44 PM [facility] Microscopic Description and Comment Multiple deeper levels were examined on both parts A and B. Sections of the bladder (A) show areas of chronic inflammation and edema with denuded mucosa, compatible with follicular cystitis. The part A was compared with prior biopsy slides ([id number]). No significant atypia or malignancy seen in the current specimen. Sections of the left ureter biopsy (B) shows an area of acellular debris and some red blood cells without any viable tissue present. 12/09/2023 3:44 PM [facility] Clinical History This is a 62-year-old female with history of invasive urothelial cell carcinoma s/p TURBT, found to have an erythematous lesion overlying the left ureteral orifice during most recent cystoscopy. Operative procedure: Cystoscopy, transurethral resection of bladder tumor, left retrograde pyelogram and left diagnostic ureteroscopy with brush biopsy; Findings: erythema within the bladder, no obvious papillary mass. 12/09/2023 3:44 PM [facility] Gross Description The requisition and specimen(s) are identified with the patient's name, Arnold Cruz. Received in formalin, specimen A , are two rubbery hwathorne tissue fragments, 0.5 x 0.4 x 0.2 [...] in cassette B1. GW 12/09/2023 3:44 PM [facility] Pathologist Location at [facility] 12/09/2023 3:44 PM [facility] Disclaimer The performance [...] the attending (teaching) pathologist. 12/09/2023 3:44 PM [facility] Embedded Images 12/09/2023 3:44 PM [facility] Biopsy, Excision URINARY BLADDER BIOPSY SPECIMEN / Unknown 12/07/2023 7:55 AM RIM FIRE PRIMING TOOL SETTER 12/07/2023 1:29 PM RIM FIRE PRIMING TOOL SETTER Comment:Pre-op diagnosis: Malignant neoplasm of urinary bladder, unspecified site Biopsy, Excision BIOPSY OF URETER / Unknown 12/07/2023 8:11 AM RIM FIRE PRIMING TOOL SETTER 12/07/2023 1:29 PM RIM FIRE PRIMING TOOL SETTER Comment:Pre-op diagnosis: Malignant neoplasm of urinary bladder, unspecified site Jose Oliver MD LAB - PATHOLOGY/CY TAMMY ORDERABLES [facility] [address] [place] [address], [facility] [phone] * (ABNORMAL) GLUCOSE - POINT OF CARE (12/07/2023 6:31 AM RIM FIRE PRIMING TOOL SETTER) Glucose WB/POC 119(H) 70 - 115 mg/dL 12/07/2023 6:32 AM RIM FIRE PRIMING TOOL SETTER [facility] Specimen Type Venous 12/07/2023 6:32 AM RIM FIRE PRIMING TOOL SETTER [facility] Blood BLOOD SPECIMEN / Unknown 12/07/2023 6:31 AM RIM FIRE PRIMING TOOL SETTER 12/07/2023 6:32 AM RIM FIRE PRIMING TOOL SETTER Jose Oliver MD LAB - POINT OF CAR E ORDERABLES [facility] [address] [place] [address], [facility] [phone] documented in this encounter Visit Diagnoses Diagnosis [...] MAR., Pre-op $ Given 12/07/2023 6:33 AM RIM FIRE PRIMING TOOL SETTER 1,000 mg albuterol (Proventil;Ventolin) (5 MG/ML) 0.5% nebulizer solution 2.5 mg 2.5 mg, Inhalation, POST-OP MULTIPLE, Starting on Wed12/07/23 at 0808, Until Wed12/07/23 at 1220, For wheezing. Notify anesthesia immediately., PACU $ Given 12/07/2023 9:03 AM RIM FIRE PRIMING TOOL SETTER 2.5 mg diphenhydrAMINE (Benadryl) injection 25 mg [...] MAR., PACU $ Given 12/07/2023 9:25 AM RIM FIRE PRIMING TOOL SETTER 50 mcg $ Given 12/07/2023 9:10 AM RIM FIRE PRIMING TOOL SETTER 50 mcg $ Given 12/07/2023 9:00 AM RIM FIRE PRIMING TOOL SETTER 50 mcg hydrALAZINE (Apresoline) injection 5 mg [...] MAR., PACU $ Given 12/07/2023 8:50 AM RIM FIRE PRIMING TOOL SETTER 0.5 mg $ Given 12/07/2023 8:40 AM RIM FIRE PRIMING TOOL SETTER 0.5 mg iohexol (Omnipaque 300) contrast PRN, Starting on Wed12/07/23 at 0814, Until Wed12/07/23 at 0825, Intra-op $ Given 12/07/2023 8:14 AM RIM FIRE PRIMING TOOL SETTER 15 mL Operative Site labetalol (Normodyne; Trandate) [...] Pre-op $ New Bag/Syringe 12/07/2023 6:33 AM RIM FIRE PRIMING TOOL SETTER 20 mL/hr lactated ringers infusion at 125 [...] the MAR. $ Given 12/07/2023 10:25 AM RIM FIRE PRIMING TOOL SETTER 5 mg prochlorperazine (Compazine) injection 10 mg 10 mg, Intravenous, ONCE PRN, Nausea/Vomiting, 1 dose, Starting on Wed12/07/23 at 0808, Until Wed12/07/23 at 1220, First choice, PACU documented in this encounter Active and Recently Administered Medications Times are shown in RIM FIRE PRIMING TOOL SETTER. Scheduled Medication Order 12/05/2023 12/06/2023 12/07/2023 0.9% [...] 0633 ($ Given - Prov ider: Katt oTrres RN) albuterol (Proventil;Ventolin) (5 MG/ML) 0.5% nebulizer [...] Pre-op documented in this encounter Care Teams Excellence Coach Relationship Specialty Start Date End Date Desii Andrews MD [address] [place] [address] PCP - General Family Medicine 05/26/23 10/26/24 documented as of this encounter
--- OUTSIDE RECORDS SUMMARY | 2024-11-12 05:23 | XMS_ITS | Encounter Summary ---
Author Organization [facility] Address [address] [facility] [place] [address] Care Team Providers Care Director Search Name Role Phone Deisi Andrews MD Primary Care Provider [phone] Encounter Details Date Type Department Care Team (Late st Contact Info) Description 11/01/2023 Orders Only [facility]rology [address] [facility] [place] [address] Monica Magallon LPN Malignant neoplasm of urinary [...] st Contact Info) Description 01/19/2025 11:30 AM BUDGET ACCOUNTANT Procedure visit [facility] - Urology [address] [place] [address] [address] [place] [address] Jose Oliver MD [address] [place] [address] documented as of this encounter Goals Goal [...] frequency documented in this encounter Care Teams Director Search Relationship Specialty Start Date End Date Deisi Andrews MD [address] [place] [address] [place] [address] PCP - General Family Medicine 05/26/23 10/26/24 documented as of this encounter
--- OUTSIDE RECORDS SUMMARY | 2024-11-12 05:23 | XMS_ITS | Encounter Summary ---
Author Organization [facility] Address [address] [facility] [place] [address] Care Team Providers Care Director Adult Name Role Phone Deisi Andrews MD Primary Care Provider [phone] Encounter Details Date Type Department Care Team (Late st Contact Info) Description 12/23/2023 Orders Only [facility] Urology [address] [facility] [place] [phone] Monica Magallon LPN Other hydronephrosis ; Pre-op [...] instructions to obtain prior to surgery. LM WASHER documented in this encounter Plan of Treatment Upcoming Encounters Date Type Department Care Team (Late st Contact Info) Description 01/19/2025 11:30 AM PAN WASHER Procedure visit [facility] - Urology [address] [place] [address] [address] [place] [address] Jose Oliver MD [facility] [place] [address] documented as of this encounter Goals Goal [...] (HCC) documented in this encounter Care Teams Director Adult Relationship Specialty Start Date End Date Deisi Andrews MD [address] [place] [address] [place] [address] PCP - General Family Medicine 05/26/23 10/26/24 documented as of this encounter
--- OUTSIDE RECORDS SUMMARY | 2024-11-12 05:23 | XMS_ITS | Encounter Summary ---
Author Organization [facility] Address [address] [facility] [place] [address] Care Team Providers Care [employer] Name Role Phone Deisi Andrews MD Primary Care Provider [phone] Encounter Details Date Type Department Care Team [...] st Contact Info) Description 01/19/2025 11:30 AM CREDIT PROFESSIONAL Procedure visit [facility] - Urology [address] [facility] [address] [place] [address] Jose Oliver MD [address] [place] [address] documented as of this encounter Goals Goal [...] on filedocumented in this encounter Care Teams [employer] Relationship Specialty Start Date End Date Deisi Andrews MD [address] [address] PCP - General Family Medicine 05/26/23 10/26/24 documented as of this encounter
--- OUTSIDE RECORDS SUMMARY | 2024-11-12 05:23 | XMS_ITS | Encounter Summary ---
Author Organization [facility] Address [address] [facility] [place] [address] Care Team Providers Care Phone Manager Name Role Phone Deisi Andrews MD Primary Care Provider [phone] Encounter Details Date Type Department Care Team [...] st Contact Info) Description 01/19/2025 11:30 AM INSURANCE CLAIMS ASSISTANT Procedure visit [facility] [address] [facility] [address] [place] [address] Jose Oliver MD [address] [facility] [address] [facility] [place] [address] documented as of this encounter Goals Goal [...] on filedocumented in this encounter Care Teams Phone Manager Relationship Specialty Start Date End Date Deisi Andrews MD [address] [place] [address] [place] [address] PCP - General Family Medicine 05/26/23 10/26/24 documented as of this encounter
--- OUTSIDE RECORDS SUMMARY | 2024-11-12 05:23 | XMS_ITS | Encounter Summary ---
Author Organization [facility] Address [address] [facility] [place] [address] Care Team Providers Care Supervisor Painting Name Role Phone Deisi Andrews MD Primary Care Provider [phone] Encounter Details Date Type Department Care Team (Late st Contact Info) Description 01/11/2024 Orders Only [facility] [address] [facility], [place] [phone] Monica Magallon LPN Other hydronephrosis ; Pre-op [...] Patient requests to have culture performed at [facility] in [place] on [address] Faxed order to [phone] OCRITICAL CARE PHYSICIAN documented in this encounter Plan of Treatment Upcoming Encounters Date Type Department Care Team (Late st Contact Info) Description 01/19/2025 11:30 AM NEUROCRITICAL CARE PHYSICIAN Procedure visit [facility] Urology [address] [facility] [address] [place] [address] Jose Oliver MD [facility] [place] [address] Scheduled Orders Name Type Priority Associated Diagnoses [...] (HCC) documented in this encounter Care Teams Supervisor Painting Relationship Specialty Start Date End Date Deisi Andrews MD [address] [place] [address] [place] [address] PCP - General Family Medicine 05/26/23 10/26/24 documented as of this encounter
--- OUTSIDE RECORDS SUMMARY | 2024-11-12 05:24 | XMS_ITS | Encounter Summary ---
Author Organization [facility] Address [address] [place] [address] Care Team Providers Care Business Office Technician Name Role Phone Neva Holden MD Primary Care Provider [phone] Reason for Visit * Reason Onset Date Comments Surgery Scheduling 12/17/2022 Encounter Details Date Type Department Care Team (Late st Contact Info) Description 12/17/2022 Telephone [facility] [address] [place] [address] Jose Oliver MD [address] [place] [phone] Surgery Scheduling Social History Tobacco Use Types [...] return call. Virgen Piña 12/17/2022 12:20 PM R LINE INSTALLER documented in this encounter Plan of Treatment Upcoming Encounters Date Type Department Care Team (Late st Contact Info) Description 01/19/2025 11:30 AM POWER LINE INSTALLER Procedure visit [facility] [address] [facility] [address] [place] [address] Jose Oliver MD [address] [place] [phone] documented as of this encounter Goals Goal [...] on filedocumented in this encounter Care Teams Business Office Technician Relationship Specialty Start Date End Date Neva Holden MD [address] [place] [phone] PCP - General 05/06/20 05/25/23 documented as of this encounter
--- OUTSIDE RECORDS SUMMARY | 2024-11-12 05:24 | XMS_ITS | Encounter Summary ---
Author Organization [facility] Address [address] [place] [address] Care Team Providers Care Academic Coach Name Role Phone Neva Holden MD Primary Care Provider Reason for Visit * Reason Comments Cystoscopy Encounter Details Date Type Department Care Team (Late st Contact Info) Description 12/04/2022 1:00 PM DIRECTOR OF SOFTWARE DEVELOPMENT Procedure visit [facility] [address] [place] [address] Jose Oliver MD [address] [place] [address] Malignant neoplasm of urinary bladder, [...] - - Pulse 96 12/04/2022 12:56 PM DIRECTOR OF SOFTWARE DEVELOPMENT Temperature 36.2 ??C (97.1 ??F) 12/04/2022 12:[address] Respiratory Rate - - Oxygen Saturation 98% 12/04/2022 12:56 PM DIRECTOR OF SOFTWARE DEVELOPMENT Inhaled Oxygen Concentration - - Weight - [...] for years 3 and4, then annually thereafter CTOR OF SOFTWARE DEVELOPMENT documented in this encounter Plan of Treatment Upcoming Encounters Date Type Department Care Team (Late st Contact Info) Description 01/19/2025 11:30 AM DIRECTOR OF SOFTWARE DEVELOPMENT Procedure visit [facility] - Urology [address] [place] [address] [address] [place] [phone] Jose Oliver MD [address] [place] [address] [place] [phone] documented as of this encounter Goals Goal [...] POCT NEG Ketones UA POCT NEG Specific [place] UA 1.025 Blood Urine POCT NEG pH UA 6.0 Protein UA 1+ 0.3g/L Urobilinogen UA - 3.5umol/L Nitrite UA NEG WBC UA 1+ flip/uL Urine URINE / Unknown 12/04/2022 Jose Oliver MD LAB - POINT OF CAR E ORDERABLES documented in this encounter Visit Diagnoses Diagnosis Malignant neoplasm of urinary bladder, unspecified site (HCC)- Primary documented in this encounter Care Teams Academic Coach Relationship Specialty Start Date End Date Neva Holden MD [address] [place] [phone] PCP - General 05/06/20 05/25/23 documented as of this encounter
--- OUTSIDE RECORDS SUMMARY | 2024-11-12 05:24 | XMS_ITS | Encounter Summary ---
Author Organization [facility] Address [address] [facility] [place] [address] Care Team Providers Care Door Framer Name Role Phone Neva Holden MD Primary Care Provider [phone] Reason for Visit * Reason Comments Cystoscopy Hx bladder cancer Encounter Details Date Type Department Care Team ([facility] Contact Info) Description 08/14/2022 11:30 AM CDT Procedure visit [facility] Urology [address] [place] [address] Jose Oliver MD [address] [place] [phone] Malignant neoplasm of urinary bladder, unspecified site [...] CDT -To schedule an appointment please call [phone]. -To reach the [place] office please call [phone]. -For any nursing or surgery questions please call [phone]. -FAX: We hope you've enjoyed your visit [...] st Contact Info) Description 01/19/2025 11:30 AM COMMERCIAL RELIEF DRIVER Procedure visit [facility] - Urology [address] [place] [address] [address] [place] [address] Jose Oliver MD [facility] [place] [phone] documented as of this encounter Goals Goal [...] Name Priority Date/Time Associated Diagnosis Comments CYTOLOGY NON-SCRAP CUTTER PANEL Routine 08/14/2022 11:53 AM CDT Malignant neoplasm of urinary bladder, unspecified site (HCC) URINALYSIS AUTO - POINT OF CARE (AMB) [facility] Routine 08/14/2022 Malignant neoplasm of urinary bladder, unspecified site (HCC) documented in this encounter Results * CYTOLOGY NON-SCRAP CUTTER PANEL (08/14/2022 11:53 AM CDT) Clinical Information [facility] Comment:Malignant neoplasm o f urinary bladder Pathologist [facility] Comment: Go Spaulding Jr., M.D. Board Certified in Anatomic Pathology, Clinical Pathology and Cytopathology, Specializing in Urologic Pathology [phone] (electronic signature) Test Performed at: [facility] [address] ??[phone] TERE KO MD Pathology/Cytolo gy URINE SPECIMEN FROM URINARY BLADDER / Unknown 08/14/2022 11:53 AM CDT 08/18/2022 3:35 AM CDT Jose Oliver MD LAB - PATHOLOGY/CY TOLOGY ORDERABLES [facility] [address] [place] [address] * URINALYSIS AUTO - POINT OF CARE (AMB) [facility] (08/14/2022) Glucose UA 15 mmol/l Bilirubin UA POCT neg Ketones UA POCT neg Specific Martin UA 1.025 Blood Urine POCT 10 abel/ul pH UA 6.0 Protein UA 0.3 g/l Urobilinogen UA 3.5 umol/l Nitrite UA neg WBC UA neg Urine URINE / Unknown 08/14/2022 Jose Oliver MD LAB - POINT OF CAR E ORDERABLES documented in this encounter Visit Diagnoses Diagnosis Malignant neoplasm of urinary bladder, unspecified site (HCC)- Primary documented in this encounter Care Teams Door Framer Relationship Specialty Start Date End Date Neva Holden MD [address] [place] [phone] PCP - General 05/06/20 05/25/23 documented as of this encounter
--- OUTSIDE RECORDS SUMMARY | 2024-11-12 05:24 | XMS_ITS | Encounter Summary ---
Author Organization [facility] Address [address] [facility] [place] [address] Care Team Providers Care Sports Bookmaker Name Role Phone Neva Holden MD Primary Care Provider [phone] Reason for Visit * Auth/Cert (Routine) Specialty Diagnoses / Procedures Referred By Contac t Referred To Contact Diagnoses Malignant neoplasm of urinary bladder, unspecified site (HCC) Malignant neoplasm of urinary bladder, unspecified site Procedures TRANSURETHRAL RESECTION BLADDER TUMOR (TURBT) Referral ID Status Reason Start Date Expiration Date Visits Re quested Visits Authorized [id number] 1 1 Encounter Details Date Type Department Care Team (Late st Contact Info) Description 01/18/2023 8:55 AM FASHION MARKETER - 01/18/2023 10:30 AM FASHION MARKETER Surgery [facility] [address] [place] [phone] Jose Oliver MD [address] [facility] [address] [place] [phone] Blue light cystoscopy and transurethral resection of bladder tumor Surgery Details Date/Time Status Location OR Service Patient Class Case Class Case Type Trauma Case? 01/18/2023 8:55 AM Posted [facility] OR OR 07 Urology Surgery Day Care Elective > 5 days Panel 1 Procedure LRB Anes Op Region Wound Class Comments Blue light cystoscopy and transurethral resection of bladder tumor N/A General Clean Contaminated Surgeon Surgeon Role Service Panel Jose Oliver MD Primary Urology 1 Orf, Kenan, MD Resident - Assisting Urology 1 Special Needs Laser Lincoln stone confirmed ? Blue light laser / [...] Comments Blood Pressure 127/71 01/18/2023 10:30 AM FASHION MARKETER Pulse 77 01/18/2023 10:30 AM FASHION MARKETER Temperature 36.1 ??C (97 ??F) 01/18/2023 10:20 AM FASHION MARKETER Respiratory Rate 10 01/18/2023 10:30 AM FASHION MARKETER Oxygen Saturation 96% 01/18/2023 10:30 AM FASHION MARKETER Inhaled Oxygen Concentration - - Weight 90.4 kg (199 lb 6.4 oz) 01/18/2023 7:57 A M FASHION MARKETER Height 160 cm (5' 3 ) 01/18/2023 7:57 AM FASHION MARKETER Body Mass Index 35.32 01/18/2023 7:57 AM FASHION MARKETER documented in this encounter Functional Status Functional [...] Kenan Argueta MD - 01/18/2023 10:01 AM FASHION MARKETER Images from the original note were not [...] prescribed narcotic pain medication such as Oxycodone, Coolspring, or Tramadol. This should be taken as needed for severe pain only. Do not drink alcohol, drive, or operate heavy machinery while taking this type of medication. If the narcotic is Coolspring, please understand that Coolspring has Tyelonol in it. If you are [...] surgery or the recovery process, please contact [facility] Urology [phone] on weekdays during regular business hours. If you have an urgent or emergent question on a weekend or after regular business hours, please contact [facility] Hospital at [phone] and ask for the provider asset protection detective for Urology. In addition, please contact us [...] to the touch, or non-clear, foul-smelling drainage) ION MARKETER documented in this encounter Medications at Time of Discharge Medication Sig Dispensed Refills Start Date End Date albuterol (PROVENTIL;VENTOLIN) (2.5 MG/3ML) 0.083% nebulizer solution Inhale 2.5 (two and one-half) mg by mouth every 4 hours as needed for Shortness of Breath 75 mL 11/03/2021 albuterol HFA (PROAIR HFA) 108 (90 Base) MCG/ACT inhalerIndications:Sta ge 2 moderate COPD by GOLD classification ([facility]) Inhale 2 (two) puffs by mouth [...] tablet 4 12/08/2021 vitamin D, ergocalciferol, (DRISDOL) 17226 UNITS capsule Take 1 (one) capsule by [...] 2 moderate COPD by GOLD classification ([facility]) INHALE 2 PUFFS BY MOUTH TWICE DAILY [...] MG tabletIndications:need follow up visit for further [id number] option 1 Take 1 (one) tablet by mouth once daily Reasons: need follow up visit for further [id number] option 1 90 tablet 3 01/23/2022 06/15/2024 [...] questions, please contact the outpatient pharmacy at [phone]. Radha Curiel CPhT [facility] at [address], First Floor [place], [place] [address] Hours of Operation Wednesday - Wednesday: 8:00am to 6:00pm Wednesday: 9:00am to 1:00pm [facility]: [facility] [place], [facility] *Ensure the patient and clinic's nearby ZIP codes box is unchecked* * [place] Knutson APRN-CNP - 01/18/2023 7:56 AM CST Blue light Cystoscopy: -Pt emptied Bladder prior to coming into Pre-post room - Cysview solution 100mg (hexaminolevulinate HCL) instilled into bladder via catheter. Pt tolerated. ION MARKETER documented in this encounter H&P Notes * [...] List Diagnosis Date Noted ??? CAD in [place] artery 10/24/2020 Priority: Not Prioritized ??? PAD (peripheral artery disease) ([facility]) Priority: Not Prioritized ??? MDD (recurrent major depressive disorder) in remission ([facility]) 08/05/2018 Priority: Not Prioritized ??? GIOVANNY (generalized anxiety disorder) 06/09/2017 ICD-10 update ??? Obesity 01/09/2017 ??? Nocturia 01/09/2017 ??? Personal history of transient ischemic attack (TIA), and cerebral infarction without residual deficits 01/09/2017 reported ??? Occlusion and stenosis of bilateral carotid arteries 01/09/2017 ??? Chronic pain syndrome 01/09/2017 ??? Type 2 diabetes mellitus with diabetic polyneuropathy ([facility]) 01/09/2017 EMG/[facility] ??? Insomnia due to medical condition 01/09/2017 ??? Gastro-esophageal reflux disease without esophagitis 01/09/2017 ??? Primary osteoarthritis of one knee 01/09/2017 ??? Other asthma 01/09/2017 ??? Sleep related leg cramps 01/09/2017 ??? Other forms of angina pectoris ([facility]) 01/09/2017 ??? Essential (primary) hypertension 01/09/2017 ??? Hypersomnia due to medical condition 01/09/2017 ??? Chronic obstructive pulmonary disease ([facility]) 01/09/2017 ??? Personal history of traumatic brain injury 01/09/2017 Reports brief LOC. Age 17. ??? Restless legs syndrome 01/01/2017 ??? Obstructive sleep apnea 01/01/2017 ??? Cervicalgia 04/28/2015 ??? Other chronic pain 04/28/2015 Past Medical History: Diagnosis Date ??? Anxiety ??? Asthma ??? Atherosclerosis of coronary artery ??? Bladder cancer ([facility]) ??? Chest pain pain 10/23 ??? Chronic obstructive pulmonary disease (COPD) ([facility]) ??? Depression ??? Essential hypertension ??? [...] 2014 ??? HX TUBAL LIGATION 1989 ??? LA FOOT/TOES SURGERY PROC UNLISTED ??? 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 Lab results smartLinks are not currently [...] Argueta MD Urology Resident 01/18/2023 3:20 AM ION MARKETER documented in this encounter OR Notes * [...] Kenan Argueta MD - Resident - Assisting Road Freight Firer(s): none Anesthesia Type: general LMA Complications: none [...] implants in log * Kenan Argueta MD ION MARKETER * Operative - Jsoe Oliver MD - 01/18/2023 5:13 AM CST [...] fashion. A timeout was then performed. A 26-Khmer resectoscope was then used to enter her [...] discharge today. MD Jose Calderon MD JO/charu .[id number] .[id number] Doc ID: [id number] Voice Job ID: [id number] I was present for the entire procedure. Jose Oliver MD 01/19/2023 9:29 AM ION MARKETER documented in this encounter Plan of Treatment Upcoming Encounters Date Type Department Care Team (Late st Contact Info) Description 01/19/2025 11:30 AM FASHION MARKETER Procedure visit [facility] - Urology [address] [place] [address] [address] [place] [phone] Jose Oliver MD [address] [place] [phone] documented as of this encounter Goals Goal [...] POINT OF CARE Routine 01/18/2023 11:53 AM FASHION MARKETER GLUCOSE - POINT OF CARE Routine 01/18/2023 10:19 AM FASHION MARKETER PATHOLOGY TISSUE Routine 01/18/2023 9:18 AM FASHION MARKETER Malignant neoplasm of urinary bladder, unspecified site (HCC) TRANSURETHRAL RESECTION BLADDER TUMOR (TURBT) 01/18/2023 9:12 AM FASHION MARKETER Malignant neoplasm of urinary bladder, unspecified site (HCC) Special Needs Laser Lincoln stone confirmed ? Blue light laser / Reviewed 01/13 GLUCOSE - POINT OF CARE Routine 01/18/2023 8:13 AM FASHION MARKETER documented in this encounter Results * (ABNORMAL) GLUCOSE - POINT OF CARE (01/18/2023 11:53 AM FASHION MARKETER) Glucose WB/POC 204(H) 70 - 115 mg/dL 01/18/2023 11:54 AM FASHION MARKETER [facility] Specimen Type Cap Fingerstick 2022 11:54 AM FASHION MARKETER [facility] Blood BLOOD SPECIMEN / Unknown 01/18/2023 11:53 AM FASHION MARKETER 01/18/2023 11:54 AM FASHION MARKETER Jose Oliver MD LAB - POINT OF CAR E ORDERABLES [facility] [address] [place] [address], [facility] [phone] * (ABNORMAL) GLUCOSE - POINT OF CARE (01/18/2023 10:19 AM FASHION MARKETER) Glucose WB/POC 121(H) 70 - 115 mg/dL 01/18/2023 11:55 AM FASHION MARKETER [facility] Specimen Type Cap Fingerstick 2022 11:55 AM FASHION MARKETER [facility] Blood BLOOD SPECIMEN / Unknown 01/18/2023 10:19 AM FASHION MARKETER 01/18/2023 11:55 AM FASHION MARKETER Jose Oliver MD LAB - POINT OF CAR E ORDERABLES Performing Organization Address [facility] Co de Phone Number [facility] [address] [place] [address], [facility] [phone] * PATHOLOGY TISSUE (01/18/2023 9:18 AM FASHION MARKETER) Case Report Surgical Pathology Report ? Case: [id number] ? Authorizing Provider: ??Jose Oliver MD ?Collected: ? 01/18/2023 09:18 AM ? Ordering Location: ? [facility] ?Received: ?01/18/2023 10:11 AM ? Pathologist: ? Nicole Glaser MD ? Specimens: ?? A) - Bladder Biopsy, Left bladder neck ? B) - Bladder Biopsy Wall, Right posterior wall ? C) - Bladder Biopsy Dome, Left dome ? 01/21/2023 7:59 AM [facility] Final Diagnosis Bladder, left neck, [...] - Muscular propria present 01/21/2023 7:59 AM [facility] Microscopic Description and Comment Sections of all biopsies demonstrate largely denuded urothelium. In parts A and C, there is focal cytologic atypia of the urothelium with nuclear enlargement but CK20 immunostain does not show full thickness staining in the areas of histologic concern to support a diagnosis of carcinoma in situ. 01/21/2023 7:59 AM [facility] Clinical History The patient is a 62-year-old woman with a history of high-grade T1 bladder carcinoma. Surveillance cystoscopy revealed shaggy papillary changes with erythema along the right dome and erythema around the left ureteral orifice. 01/21/2023 7:59 AM [facility] Gross Description The [...] in cassette C1. DF 01/21/2023 7:59 AM [facility] Disclaimer The performance characteristics of all immunohistochemical and indirect immunofluorescence stains (if any) cited in this report were determined by the Histopathology Laboratory of [facility]. Some of these tests were developed by [...] the attending (teaching) pathologist. 01/21/2023 7:59 AM [facility] Embedded Images 01/21/2023 7:59 AM [facility] Biopsy, Excision URINARY BLADDER BIOPSY SPECIMEN / Unknown 01/18/2023 9:18 AM FASHION MARKETER 01/18/2023 10:11 AM FASHION MARKETER Comment:Pre-op diagnosis: Malignant neoplasm of urinary bladder, unspecified site Biopsy, Excision URINARY BLADDER BIOPSY SPECIMEN / Unknown 01/18/2023 9:25 AM FASHION MARKETER 01/18/2023 10:11 AM FASHION MARKETER Comment:Pre-op diagnosis: Malignant neoplasm of urinary bladder, unspecified site Biopsy, Excision URINARY BLADDER BIOPSY SPECIMEN / Unknown 01/18/2023 9:38 AM FASHION MARKETER 01/18/2023 10:11 AM FASHION MARKETER Comment:Pre-op diagnosis: Malignant neoplasm of urinary bladder, unspecified site Jose Oliver MD LAB - PATHOLOGY/CY TOLOGY ORDERABLES [facility] [address] [place], [place] [id number] [place] [address] * (ABNORMAL) GLUCOSE - POINT OF CARE (01/18/2023 8:13 AM FASHION MARKETER) Glucose WB/POC 170(H) 70 - 115 mg/dL 01/18/2023 8:15 AM [facility] Specimen Type Venous 01/18/2023 8:15 AM FASHION MARKETER [facility] Blood BLOOD SPECIMEN / Unknown 01/18/2023 8:13 AM FASHION MARKETER 01/18/2023 8:14 AM FASHION MARKETER Jose Oliver MD LAB - POINT OF CAR E ORDERABLES [address] [address], [facility] [phone] documented in this encounter Visit Diagnoses Diagnosis [...] 1013, PACU $ Given 01/18/2023 10:13 AM FASHION MARKETER 2.5 mg diphenhydrAMINE (Benadryl) injection 25 mg [...] MAR., PACU $ Given 01/18/2023 10:30 AM FASHION MARKETER 25 mcg $ Given 01/18/2023 10:20 AM FASHION MARKETER 25 mcg fentaNYL (PF) (Sublimaze) injection 50 [...] preparation, Pre-op $ Given 01/18/2023 8:10 AM FASHION MARKETER 100 mg hydrALAZINE (Apresoline) injection 5 mg [...] 1014, PACU $ Given 01/18/2023 10:14 AM FASHION MARKETER 0.5 mg labetalol (Normodyne; Trandate) injection 5 [...] Pre-op $ New Bag/Syringe 01/18/2023 8:12 AM FASHION MARKETER 75 mL/hr lactated ringers infusion at 125 [...] the MAR. $ Given 01/18/2023 11:19 AM FASHION MARKETER 1 tablet prochlorperazine (Compazine) injection 10 mg 10 mg, Intravenous, ONCE PRN, Nausea/Vomiting, 1 dose, Starting on Wed01/18/23 at 0959, Until Wed01/18/23 at 1311, First choice, PACU documented in this encounter Active and Recently Administered Medications Times are shown in FASHION MARKETER. Scheduled Medication Order 01/16/2023 01/17/2023 01/18/2023 0.9% [...] Jacquelin Guillen RN - Comment: given by MOTOR POWER CONNECTOR) hydrALAZINE (Apresoline) injection 5 mg 5 mg, [...] PACU documented in this encounter Care Teams Sports Bookmaker Relationship Specialty Start Date End Date Neva Holden MD [address] [place] [phone] PCP - General 05/06/20 05/25/23 documented as of this encounter
--- OUTSIDE RECORDS SUMMARY | 2024-11-12 05:24 | XMS_ITS | Encounter Summary ---
Author Organization [facility] Address [address] [facility] [place] [address] Care Team Providers Care Cryptographic Clerk Name Role Phone Neva Holden MD Primary Care Provider [phone] Encounter Details Date Type Department Care Team (Late Contact Info) Description 12/21/2022 Orders Only [facility] [address] [place] [address] Rhonda Lozada RN Malignant neoplasm of urinary [...] (Late Contact Info) Description 01/19/2025 11:30 AM PRESS BREAKER Procedure visit [facility] [address] [place] [address] [address] [place] [phone] Jose Oliver MD [address] OF [place] [address] documented as of this encounter Goals Goal [...] hematuria documented in this encounter Care Teams Cryptographic Clerk Relationship Specialty Start Date End Date Neva Holden MD [address] [place] [phone] PCP - General 05/06/20 05/25/23 documented as of this encounter
--- OUTSIDE RECORDS SUMMARY | 2024-11-12 05:24 | XMS_ITS | Encounter Summary ---
Author Organization [facility] Address [address] [facility] [place] [address] Care Team Providers Care Harnessmaker Name Role Phone Neva Holden MD Primary Care Provider [phone] Encounter Details Date Type Department Care Team (Late Contact Info) Description 11/03/2021 Orders Only [facility] Pul[facility], Critical Care [facility] Medicine [address] [place] [phone] [place] [address] [place] [address] Pulmonary emphysema, unspecified emphysema type (HCC) Social [...] COVID-19? No / Unsure 10/06/2021 12:48 PM COLD MOLDING PRESS OPERATOR documented as of this encounter Plan of Treatment Upcoming Encounters Date Type Department Care Team (Late Contact Info) Description 01/19/2025 11:30 AM COLD MOLDING PRESS OPERATOR Procedure visit [facility] [address] [place] [address] Jose Oliver MD [address] [facility] [address] [facility] [place] [address] documented as of this encounter Goals Goal [...] W BUBBLE STUDY Routine 12/31/2021 9:47 AM COLD MOLDING PRESS OPERATOR Pulmonary emphysema, unspecified emphysema type (HCC) documented in this encounter Results * ECHO COMPLETE W BUBBLE STUDY (12/31/2021 9:47 AM COLD MOLDING PRESS OPERATOR) Anatomical Region Laterality Modality Chest Echo 12/31/2021 9:07 AM COLD MOLDING PRESS OPERATOR Narrative Procedure Note Campos Fraga MD - 01/08/2022 Hollis Mccall MD ECHOCARDIOGRAPHY RAD IANT documented in this encounter Visit Diagnoses Diagnosis Pulmonary emphysema, unspecified emphysema type (HCC) Pulmonary emphysema, unspecified emphysema type (HCC) documented in this encounter Care Teams Harnessmaker Relationship Specialty Start Date End Date Neva Holden MD [address] [place] [phone] PCP - General 05/06/20 05/25/23 documented as of this encounter
--- OUTSIDE RECORDS SUMMARY | 2024-11-12 05:24 | XMS_ITS | Encounter Summary ---
Author Organization [facility] Address [address] [facility] [address] Care Team Providers Care Termite Treater Name Role Phone Neva Holden MD Primary Care Provider [phone] Reason for Visit * Reason Onset Date Comments MEDICATION REFILL 12/08/2021 MEDICATION REFILL 12/15/2021 MEDICATION REFILL 01/01/2022 Encounter Details Date Type Department Care Team (Late st Contact Info) Description 12/08/2021 Refill [facility] Card[facility] [address] [facility] [address] [place] [address] Monica Quijano MD MEDICATION REFILL; MEDICATION REFILL; [...] COVID-19? No / Unsure 12/31/2021 8:43 AM KEY CARRIER documented as of this encounter Miscellaneous Notes * Telephone Encounter - Adrianna Adair RN - 01/01/2022 11:14 AM CST Recevied fax stating Repatha approved from 12/26/21-12/26/22 CARRIER * Telephone Encounter - Adrianna Adair RN - 12/15/2021 10:47 AM CST Received fax stating that [facility] pharmacy does not carry Repatha. Patient states that she will call insurance company and return call with pharmacy in which to send prescription. CARRIER * Telephone Encounter - Adrianna Adair RN - 12/08/2021 10:12 AM CST Patient seen in clinic today. Needs Repatha sent to [facility] Patient was given samples and discount card. Prescriptions -Member Services Needs refill on: Losartan Metoprolol Clopidogrel Zetia Isosorbide Nitroglycerin Prefers prescriptions be sent to [facility] Sent Repatha to [facility] pharmacy, will wait to hear from them if PA is needed CARRIER documented in this encounter Plan of Treatment Upcoming Encounters Date Type Department Care Team (Late st Contact Info) Description 01/19/2025 11:30 AM KEY CARRIER Procedure visit [facility] - Urology [address] [place] [address] [address] [place] [address] Jose Oliver MD [address] [place] [address] documented as of this encounter Goals Goal [...] on filedocumented in this encounter Care Teams Termite Treater Relationship Specialty Start Date End Date Neva Holden MD [address] [place] [phone] PCP - General 05/06/20 05/25/23 documented as of this encounter
--- OUTSIDE RECORDS SUMMARY | 2024-11-12 05:24 | XMS_ITS | Encounter Summary ---
Author Organization [facility] Address [address] [facility] [place] [address] Care Team Providers Care Batch Heat Treat Operator Name Role Phone Neva Holden MD Primary Care Provider [phone] Encounter Details Date Type Department Care Team [...] st Contact Info) Description 01/19/2025 11:30 AM MAINTENANCE MECHANIC HELPER Procedure visit [facility] - Urology [address] [facility] [address] [place] [address] Jose Oliver MD [address] [place] [address] documented as of this encounter Goals Goal [...] on filedocumented in this encounter Care Teams Batch Heat Treat Operator Relationship Specialty Start Date End Date Neva Holden MD [address] [place] [phone] PCP - General 05/06/20 05/25/23 documented as of this encounter
--- OUTSIDE RECORDS SUMMARY | 2024-11-12 05:24 | XMS_ITS | Encounter Summary ---
Author Organization [facility] Address [address] [address] Care Team Providers Care Merchandise Carrier Name Role Phone Neva Holden MD Primary Care Provider [phone] Encounter Details Date Type Department Care Team (Late Contact Info) Description 08/14/2022 Orders Only [facility] [address] [place] [address] Jose Oliver MD [address] [place] [address] Social History Tobacco Use Types [...] (Late Contact Info) Description 01/19/2025 11:30 AM ACUTE CARE ASSISTANT Procedure visit [facility]rology [address] [place] [address] [address] [place] [phone] Jose Oliver MD [address] [place] [address] documented as of this encounter [...] Name Priority Date/Time Associated Diagnosis Comments CYTOLOGY NON-ELECTROMECHANICAL EQUIPMENT ASSEMBLER 08/14/2022 11:5 3 AM CDT documented in this encounter Results * CYTOLOGY NON-ELECTROMECHANICAL EQUIPMENT ASSEMBLER (08/14/2022 11:53 AM CDT) A Source [facility] Comment:Bladder washings A Gross Description [facility] Comment: The specimen is received with multiple patient identifier(s), labeled bladder washings and consists of 50 cc(s) of yellow fluid. One ThinPrep slide prepared and stained with Papanicolaou stain. ??Gross exam(s) performed at: [facility] ??[address] [facility] [id number] ??Blunger: TERE KO MD A Diagnosis [facility] Comment: Atypical cells present of undetermined significance. Atypical urothelial cells present. Suggest clinically appropriate follow up. Test Performed at: [address] ??[id number] TERE KO MD 08/14/2022 11:5 3 AM CDT 08/18/2022 3:35 AM CDT Jose Oliver MD LAB - PATHOLOGY/CY TOLOGY ORDERABLES [facility] [address] [place] [address] documented in this encounter Visit Diagnoses Not on filedocumented in this encounter Care Teams Merchandise Carrier Relationship Specialty Start Date End Date Neva Holden MD [address] [place] [phone] PCP - General 05/06/20 05/25/23 documented as of this encounter
--- OUTSIDE RECORDS SUMMARY | 2024-11-12 05:24 | XMS_ITS | Encounter Summary ---
Author Organization [facility] Address [address] [place] [address] Care Team Providers Care Premix Concrete Batcher Name Role Phone Neva Holden MD Primary [...] st Contact Info) Description 01/19/2025 11:30 AM LONGSHORE EQUIPMENT OPERATOR Procedure visit [facility] - Urology [address] [place] [address] [address] [place] [address] Jose Oliver MD [address] [place] [address] documented as of this encounter Goals Goal [...] on filedocumented in this encounter Care Teams Premix Concrete Batcher Relationship Specialty Start Date End Date Neva Holden MD [address] [place] [phone] PCP - General 05/06/20 05/25/23 documented as of this encounter
--- OUTSIDE RECORDS SUMMARY | 2024-11-12 05:24 | XMS_ITS | Encounter Summary ---
Author Organization [facility] Address [address] [facility] [place] [address] Care Team Providers Care Merchandise Buyer Name Role Phone Neva Holden MD Primary Care Provider [phone] Encounter Details Date Type Department Care Team (Latest Contact Info) Description 01/11/2023 10:22 AM [facility] - 01/11/2023 11:59 PM [facility] Hospital Encounter [facility] PAT [address] [place] [address] Jose Oliver MD [address] [facility] [address] [facility] [place] [phone] Urology Discharge Disposition: Home or Self Care [...] : 812; Orientation: Left, Posterior; Placed By: coyt 01/18/23 0813 by Jacquelin Dash RN 01/18/23 1144 by Rosalinda Casey RN LMA 01/18/23; 899 (snow lynn via [...] by Denia Doherty RN 01/18/23 1811 by [employer], Auto Release documented in this encounter Social [...] Comments Blood Pressure 121/68 01/11/2023 10:23 AM PATIENT SUPPORT 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 Pulse 98 01/11/2023 10:23 AM PATIENT SUPPORT 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 Temperature 37.1 ??C (98.8 ??F) 01/11/2023 10:[address] Respiratory Rate 18 01/11/2023 10:23 AM PATIENT SUPPORT 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 Oxygen Saturation 98% 01/11/2023 10:23 AM PATIENT SUPPORT 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 Inhaled Oxygen Concentration - - Weight 89 kg (196 lb 3.2 oz) 01/11/2023 10:23 AM PATIENT SUPPORT 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 Height 160 cm (5' 3 ) 01/11/2023 10:23 AM PATIENT SUPPORT 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 Body Mass Index 34.76 01/11/2023 10:23 AM PATIENT SUPPORT 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 documented in this encounter Medications at Time of Discharge Medication Sig Dispensed Refills Start Date End Date albuterol (PROVENTIL;VENTOLIN) (2.5 MG/3ML) 0.083% nebulizer solution Inhale 2.5 (two and one-half) mg by mouth every 4 hours as needed for Shortness of Breath 75 mL 11/03/2021 albuterol HFA (PROAIR HFA) 108 (90 Base) MCG/ACT inhalerIndications:Sta ge 2 moderate COPD by GOLD classification ([facility]) Inhale 2 (two) puffs by mouth [...] tablet 4 12/08/2021 vitamin D, ergocalciferol, (DRISDOL) 39024 UNITS capsule Take 1 (one) capsule by [...] ge 2 moderate COPD by GOLD classification ([facility]) INHALE 2 PUFFS BY MOUTH TWICE DAILY 10.2 g 5 12/03/2022 07/07/2023 FLUoxetine (PROzac) 60 MG tablet fluoxetine 60 mg tablet TAKE 1 (ONE) TABLET BY MOUTH ONCE DAILY FOR 90 DAYS 05/27/2023 HYDROcodone-acetaminop hen ([place]) 5-325 MG tabletIndications:Anastasiya galicia neoplasm of urinary bladder, unspecified site (HCC) Take 1 (one) tablet by mouth every 6 hours as needed pain 6 tablet 01/18/2023 01/18/2023 HYDROcodone-acetaminop hen ([place]) 5-325 MG tablet Take 1 (one) tablet [...] MG tabletIndications:need follow up visit for further [phone] option 1 Take 1 (one) tablet by mouth once daily Reasons: need follow up visit for further [phone] option 1 90 tablet 3 01/23/2022 06/15/2024 polyethylene glycol 3350 (MIRALAX) 17 GM/SCOOP powderIndications:Hemo rrhoids, unspecified hemorrhoid type Take 17 (seventeen) g by mouth once daily 225 g 1 09/01/2021 11/22/2023 documented as of this encounter Plan of Treatment Upcoming Encounters Date Type Department Care Team (Late st Contact Info) Description 01/19/2025 11:30 AM PATIENT SUPPORT 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 Procedure visit [facility] - Urology [address] [facility] [address] [place] [address] Jose Oliver MD [address] [place] [address] documented as of this encounter Goals Goal [...] filedocumented in this encounter Care Teams Merchandise Buyer Relationship Specialty Start Date End Date Neva Holden MD [address] [place] [phone] PCP - General 05/06/20 05/25/23 documented as of this encounter
--- OUTSIDE RECORDS SUMMARY | 2024-11-12 05:24 | XMS_ITS | Encounter Summary ---
Author Organization [facility] Address [address] [facility] [place] [address] Care Team Providers Care Applique Cutter Name Role Phone Neva Holden MD Primary Care Provider Reason for Visit * Reason Onset Date Comments Surgery Verification 01/04/2023 Encounter Details Date Type Department Care Team (Late st Contact Info) Description 01/04/2023 Telephone [facility] [address] [place] [address] Jose Oliver MD [address] [phone] Surgery Verification Social History Tobacco Use Types [...] when possible Virgen Piña 01/04/2023 3:26 PM INE INSPECTOR documented in this encounter Plan of Treatment Upcoming Encounters Date Type Department Care Team (Late st Contact Info) Description 01/19/2025 11:30 AM MACHINE INSPECTOR Procedure visit [facility] - Urology [address] [place] [address] [address] [place] [address] Jose Oliver MD [address] [place] [address] documented as of this encounter Goals Goal [...] on filedocumented in this encounter Care Teams Applique Cutter Relationship Specialty Start Date End Date Neva Holden MD [address] [place] [phone] PCP - General 05/06/20 05/25/23 documented as of this encounter
--- OUTSIDE RECORDS SUMMARY | 2024-11-12 05:24 | XMS_ITS | Encounter Summary ---
Author Organization [facility] Address [address] [facility] [place] [address] Care Team Providers Care C Architect Name Role Phone Deisi Andrews MD Primary Care Provider Encounter Details Date Type Department Care Team (Late st Contact Info) Description 06/02/2023 Orders Only [facility] [address] [place] [address] [address] [place] [phone] Jose Oliver MD [address] [place] [address] Social History Tobacco Use Types [...] st Contact Info) Description 01/19/2025 11:30 AM [employer]CHO[employer] PE TEACHER Procedure visit [facility] - Urology [address] [place] [address] [address] [place] [phone] Jose Oliver MD [address] [place] [address] documented as of this encounter Goals Goal [...] Name Priority Date/Time Associated Diagnosis Comments CYTOLOGY NON-SVP RESEARCH & EBUSINESS OPERATIONS 06/02/2023 12:0 0 PM CDT documented in this encounter Results * CYTOLOGY NON-SVP RESEARCH & EBUSINESS OPERATIONS (06/02/2023 12:00 PM CDT) A Source Bladder wash [facility] A Gross Description [facility] Comment: The specimen is received with multiple patient identifier(s), labeled bladder wash and consists of 20 cc(s) of yellow fluid. One ThinPrep slide prepared and stained with Papanicolaou stain. ??Gross exam(s) performed at: [facility] ??[address] [facility] [address] ??Automatic Centrifugal Station Operator: TERE KO MD A Diagnosis [facility] Comment: Atypical cells present of undetermined significance. Red blood cells present. Atypical urothelial cells present. Suggest clinically appropriate follow up. NO COLLECTION DATE RECEIVED. WE HAVE USED THE DATE THE SPECIMEN WAS RECEIVED BY THIS LABORATORY THE COLLECTION DATE. IF THIS IS INCORRECT, PLEASE CONTACT CLIENT SERVICES. PHONE NUMBER: [phone] Test Performed at: [facility] [address] ??[id number] TERE KO MD 05/29/2023 1:4 4 AM CDT Jose Oliver MD LAB - PATHOLOGY/CY TOLOGY ORDERABLES Performing Organization Address City/State/[facility] Co de Phone Number [employer] [address] [place] [address] documented in this encounter Visit Diagnoses Not on filedocumented in this encounter Care Teams C Architect Relationship Specialty Start Date End Date Deisi Andrews MD [address] [place] [address] DANNIE Rodríguez [phone] PCP - General Family Medicine 05/26/23 10/26/24 documented as of this encounter
--- OUTSIDE RECORDS SUMMARY | 2024-11-12 05:24 | XMS_ITS | Encounter Summary ---
Author Organization [facility] Address [address] [facility] [place] [address] Care Team Providers Care Manager Recruiting Name Role Phone Neva Holden MD Primary Care Provider [phone] Encounter Details Date Type Department Care Team [...] COVID-19? No / Unsure 12/31/2021 8:43 AM MILL STENCILER documented as of this encounter Plan of Treatment Upcoming Encounters Date Type Department Care Team (Late st Contact Info) Description 01/19/2025 11:30 AM MILL STENCILER Procedure visit [facility] Urology [address] [place] [address] [address] [place] [address] Jose Oliver MD [address] [place] [phone] documented as of this encounter Goals Goal [...] filedocumented in this encounter Care Teams Manager Recruiting Relationship Specialty Start Date End Date Neva Holden MD [address] [place] [phone] PCP - General 05/06/20 05/25/23 documented as of this encounter
--- OUTSIDE RECORDS SUMMARY | 2024-11-12 05:24 | XMS_ITS | Encounter Summary ---
Author Organization [facility] Address [address] [place] [address] Care Team Providers Care Materials Scheduler Name Role Phone Neva Holden MD Primary Care Provider [phone] Reason for Visit * Auth/Cert (Routine) Specialty Diagnoses / Procedures Referred By Contac t Referred To Contact Diagnoses Malignant neoplasm of urinary bladder, unspecified site (HCC) Malignant neoplasm of urinary bladder, unspecified site Procedures TRANSURETHRAL RESECTION BLADDER TUMOR (TURBT) Referral ID Status Reason Start Date Expiration Date Visits Re quested Visits Authorized [id number] 1 1 Encounter Details Date Type Department Care Team (Late st Contact Info) Description 01/18/2023 8:45 AM NURSING PROFESSOR Anesthesia Event [facility] [address] [place] [phone] Alicja Weaver MD [address] [facility] [place] [phone] Jasmin Moore, GRINDING OPERATOR-CUSTODIAL LABORER [address] [place] [address] Anesthesia Record Procedure Summary Procedure Name Responsible [...] Care NOTABLE EVENTS: No notable events documented. ING PROFESSOR * Alicja Weaver MD - 01/18/2023 7:10 [...] List Diagnosis Date Noted ??? CAD in [place] artery 10/24/2020 Priority: Not Prioritized ??? PAD (peripheral artery disease) ([facility]) Priority: Not Prioritized ??? MDD (recurrent major depressive disorder) in remission ([facility]) 08/05/2018 Priority: Not Prioritized ??? [...] ??? [place] FOOT/TOES SURGERY PROC UNLISTED ??? TRANS URETHRAL RESECT BLADDER TUMOR 03/23/2022 TRANSURETHRAL RESECTION BLADDER TUMOR (TURBT) ??? Tympanostomy 2013 ??? URETEROSCOPY Left 03/23/2022 Left; URETEROSCOPY CANE SPLICER Status: No LMP recorded. Patient is postmenopausal. Postmenopausal OB History No obstetric history on file. Covid Vaccine: Lab Results: Recent Labs Component Name 12/04/22 0000 NITRITE NEG PROTEINUA 1+ 0.3g/L No results found for requested labs within last 120 days. No results found for requested labs within last 120 days. ING PROFESSOR * Prince Kelley, GRINDING OPERATOR-CUSTODIAL LABORER - 01/11/2023 10:19 AM CST ANESTHESIA PREOPERATIVE [...] Zaidi was recently hospitalized between 01/04-01/07/2023 at [facility] with Diverticulitis, UTI and Sharp chest pain. She had an Echocardiogram, EKG completed (results requested), she states the doctors at [place] attributed her cp to Anxiety Allergies: Pcn, [...] PM and Within 6 months for AICD [place] Information needed (kersey department supervisor, mode, indication for CIED, battery life, magnet function): If Biotronik device AND PM dependent AND surgical site above umbilicus then call local office at [phone] to schedule reprogramming of CIED (into asynchronous [...] being admitted then order: IP Consult to Oil Expeller Operator (comment regarding consult for undiagnosed CATHERINE) - [...] Patient stated she had an ECG at [facility], unable to obtain copy. Echocardiogram results [...] They ARE OPTIMIZED - PAT EVALUATION COMPLETE CRISTY Mo 01/11/2023 10:39 AM for this procedure. Final clearance pending Airport Planner evaluation DOS Preoperative plan was not discussed [...] Obstructive sleep apnea Cardiovascular (+) CAD in [place] artery (+) Essential (primary) hypertension (+) Other forms of angina pectoris ([facility]) (+) PAD (peripheral artery disease) ([facility]) Neuro/Psych (+) Personal history of transient ischemic attack (TIA), and cerebral infarction without residual deficits (+) Personal history of traumatic brain injury Pulmonary (+) Chronic obstructive pulmonary disease ([facility]) (+) Obstructive sleep apnea (+) Other asthma GI (+) Gastro-esophageal reflux disease without esophagitis Endocrine (+) Type 2 diabetes mellitus with diabetic polyneuropathy ([facility]) Problem List: Patient Active Problem List Diagnosis Date Noted ??? CAD in [place] artery 10/24/2020 Priority: Not Prioritized ??? PAD (peripheral artery disease) ([facility]) Priority: Not Prioritized ??? MDD (recurrent major depressive disorder) in remission ([facility]) 08/05/2018 Priority: Not Prioritized ??? [...] ??? HI FOOT/TOES SURGERY PROC UNLISTED ??? TRANS URETHRAL RESECT BLADDER TUMOR 03/23/2022 TRANSURETHRAL RESECTION BLADDER TUMOR (TURBT) ??? Tympanostomy 2013 ??? URETEROSCOPY Left 03/23/2022 Left; URETEROSCOPY Covid Vaccine: Lab Results: 01/07/2023 Recent Labs Component Name 12/04/22 0000 NITRITE NEG PROTEINUA 1+ 0.3g/L No results found for requested labs within last 120 days. No results found for requested labs within last 120 days. ING PROFESSOR documented in this encounter Procedure Notes * Jayy Zheng Anes Asst - 01/18/2023 9:30 AM CSTAssociated Order(s): ETT Placement Endotracheal Tube Placement: Patient Location: OR. Intubation Event Date/Time: 01/18/2023 9:09 AM Procedure: intubation ([id number]). Procedure Section: Sedation: under general anesthesia. Indications [...] Blood noted in oropharynx but not peritracheal.. ING PROFESSOR * Jayy Zheng Anes Asst - 01/18/2023 [...] tissue after placement. Min cuff to seal.. ING PROFESSOR documented in this encounter Miscellaneous Notes * Anesthesia Transfer of Care - Martir Babb MD - 01/18/2023 9:58 AM NURSING PROFESSOR ANESTHESIA TRANSFER OF CARE NOTE Today's Date: [...] from the receiving PACUteam. Martir Babb MD ING PROFESSOR documented in this encounter Plan of Treatment Upcoming Encounters Date Type Department Care Team (Late st Contact Info) Description 01/19/2025 11:30 AM NURSING PROFESSOR Procedure visit [facility] - Urology [address] [place] [address] [address] [place] [address] Jose Oliver MD [facility] [place] [phone] documented as of this encounter Goals Goal [...] ENDOTRACHEAL TUBE NOTE Routine 01/18/2023 9:30 AM NURSING PROFESSOR LARYNGEAL MASK AIRWAY Routine 01/18/2023 9:28 AM NURSING PROFESSOR documented in this encounter Results * ETT LINE PERFORMABLE (01/18/2023 9:30 AM NURSING PROFESSOR) Narrative Jayy Zheng Anes Asst - 01/18/2023 9:30 AM NURSING PROFESSOR Jayy Zheng Anes Asst ? 01/18/2023 ??9:31 AM Endotracheal Tube Placement: ? Patient Location: OR. Intubation Event Date/Time: ??01/18/2023 9:09 AM Procedure: intubation ([id number]). Procedure Section: ?? Sedation: under general anesthesia. [...] * LARYNGEAL MASK AIRWAY (01/18/2023 9:28 AM NURSING PROFESSOR) Narrative Jayy Zheng Anes Asst - 01/18/2023 9:28 AM NURSING PROFESSOR Jayy Zheng Anes Asst ? 01/18/2023 ??9:39 [...] Anesthesia Intra-op $ Given 01/18/2023 9:10 AM NURSING PROFESSOR 8 puffs ciprofloxacin (Cipro) 400 mg in 200 mL IVPB 400 mg, at 200 mL/hr, Intravenous, INTRA-OP ONCE, 1 dose, On Wed01/18/23 at 0800, Indication for anti-infective therapy: Surgical prophylaxis, Pre-op $ Given 01/18/2023 9:00 AM NURSING PROFESSOR 400 mg dexAMETHasone Sod Phosphate PF injection Intravenous, PRN, Starting on Wed01/18/23 at 0932, Until Wed01/18/23 at 0956, Anesthesia Intra-op $ Given 01/18/2023 9:32 AM NURSING PROFESSOR 4 mg fentaNYL (PF) (Sublimaze) injection Intravenous, PRN, Starting on Wed01/18/23 at 0852, Until Wed01/18/23 at 0956, Anesthesia Intra-op $ Given 01/18/2023 8:52 AM NURSING PROFESSOR 100 mcg lactated ringers infusion Intravenous, CONTINUOUS PRN, Starting on Wed01/18/23 at 0845, Until Wed01/18/23 at 0956, Anesthesia Intra-op $ New Bag/Syringe 01/18/2023 8:45 AM NURSING PROFESSOR midazolam (Versed) injection Intravenous, PRN, Starting on Wed01/18/23 at 0845, Until Wed01/18/23 at 0956, Anesthesia Intra-op $ Given 01/18/2023 8:45 AM NURSING PROFESSOR 2 mg ondansetron (Zofran) injection Intravenous, PRN, Starting on Wed01/18/23 at 0945, Until Wed01/18/23 at 0956, Anesthesia Intra-op $ Given 01/18/2023 9:45 AM NURSING PROFESSOR 4 mg propofol (Diprivan) injection Intravenous, PRN, Starting on Wed01/18/23 at 0918, Until Wed01/18/23 at 0956, Anesthesia Intra-op $ Given 01/18/2023 9:26 AM NURSING PROFESSOR 30 mg $ Given 01/18/2023 9:18 AM NURSING PROFESSOR 30 mg rocuronium (Zemuron) injection Intravenous, PRN, Starting on Wed01/18/23 at 0911, Until Wed01/18/23 at 0956, Anesthesia Intra-op $ Given 01/18/2023 9:11 AM NURSING PROFESSOR 50 mg succinylcholine (Anectine) injection Intravenous, PRN, Starting on Wed01/18/23 at 0907, Until Wed01/18/23 at 0956, Anesthesia Intra-op $ Given 01/18/2023 9:07 AM NURSING PROFESSOR 160 mg sugammadex (Bridion) injection Intravenous, PRN, Starting on Wed01/18/23 at 0945, Until Wed01/18/23 at 0956, Anesthesia Intra-op $ Given 01/18/2023 9:45 AM NURSING PROFESSOR 200 mg documented in this encounter Care Teams Materials Scheduler Relationship Specialty Start Date End Date Neva Holden MD [address] [place] [phone] PCP - General 05/06/20 05/25/23 documented as of this encounter
--- OUTSIDE RECORDS SUMMARY | 2024-11-12 05:24 | XMS_ITS | Encounter Summary ---
Author Organization [facility] Address [address] [facility] [place] [address] Care Team Providers Care Tax Expert Name Role Phone Deisi Andrews MD Primary Care Provider [phone] Reason for Visit * Reason Comments Refill Request Encounter Details Date Type Department Care Team ([facility] st Contact Info) Description 07/01/2023 Refill [facility] - Pulmonology [address] [place] [address], [place] [phone] Billy Don MD [address] [place] [address] OF PULMONARY/[place] [address] Refill Request Social History Tobacco Use Types [...] st Contact Info) Description 01/19/2025 11:30 AM GARBAGE STOKER Procedure visit [facility] - Urology [address] [place] [address] [address] [place] [address] Jose Oliver MD [address] [place] [phone] documented as of this encounter Goals Goal [...] (HCC) documented in this encounter Care Teams Tax Expert Relationship Specialty Start Date End Date Deisi Andrews MD [address] [place] [address] PCP - General Family Medicine 05/26/23 10/26/24 documented as of this encounter
--- OUTSIDE RECORDS SUMMARY | 2024-11-12 05:24 | XMS_ITS | Encounter Summary ---
Author Organization [facility] Address [address] [facility] [place] [address] Care Team Providers Care Police Justice Name Role Phone Neva Holden MD Primary Care Provider [phone] Reason for Visit * Reason Onset Date Comments Results 01/31/2022 Encounter Details Date Type Department Care Team (Late st Contact Info) Description 01/31/2022 Telephone [facility] Pulmonary, Critical Care and Sleep Medicine [address] [place] [phone] Bora Ferreira MD [address] [place] [address] Results Social History Tobacco Use Types Packs/Day [...] of Pulmonary, Critical Care and Sleep Medicine [facility] Pager:[phone] documented in this encounter Plan of Treatment Upcoming Encounters Date Type Department Care Team (Late st Contact Info) Description 01/19/2025 11:30 AM SUPERVISOR FUR FLOOR WORKER Procedure visit [facility] - Urology [address] [place] [address] [address] [place] [phone] Jose Oliver MD [address] [place] [phone] documented as of this encounter Goals Goal [...] on filedocumented in this encounter Care Teams Police Justice Relationship Specialty Start Date End Date Neva Holden MD [address] [place] [phone] PCP - General 05/06/20 05/25/23 documented as of this encounter
--- OUTSIDE RECORDS SUMMARY | 2024-11-12 05:24 | XMS_ITS | Encounter Summary ---
Author Organization [facility] Address [address] [facility] [place] [address] Care Team Providers Care Kitchen Clerk Name Role Phone Neva Holden MD Primary Care Provider Deisi Andrews MD Primary Care Provider [phone] Matti Balderas MD Primary Care Provider [phone] Encounter Details Date Type Department Care Team (Late st Contact Info) Description 02/13/2022 Lab Requisition [facility] Care Pathology Lab [address] [place] [address] Jose Oliver MD [address] [place] [phone] Illness, unspecified Social History Tobacco Use Types [...] (Late Contact Info) Description 01/19/2025 11:30 AM FILM WAXER Procedure visit [facility] - Urology [address] [place] [address] [address] [place] [address] Jose Oliver MD [address] [place] [address] documented as of this encounter Goals Goal [...] Diagnosis A. Urinary bladder, transurethral resection, (OSC: [id number]; 01/21/2022): - Invasive urothelial cell carcinoma, high-grade - No definitive detrusor muscle seen B. Urinary bladder, left ureteral orifice transurethral resection, (OSC: [id number]; 01/21/2022): - Invasive urothelial cell carcinoma, high-grade - Detrusor muscle present, negative for tumor invasion 02/16/2022 1:52 PM CDT [facility] Microscopic Description and Comment Performed. 02/16/2022 1:52 PM CDT [facility] Clinical History 02/16/2022 1:52 PM CDT [facility] Materials Received Received are 3 slide(s) labeled [id number] along with a copy of the outside pathology report. The materials originate from [facility], Department of Pathology, [address] [place] [address], [address]. All original materials are returned to the referring institution, along with a copy of our final report. 02/16/2022 1:52 PM CDT [facility] PATHOLOGY LAB Disclaimer The performance characteristics of all immunohistochemical and indirect immunofluorescence stains (if any) cited in this report were determined by the Histopathology Laboratory of [facility]. Some of these tests were [...] attending (teaching) pathologist. 02/16/2022 1:52 PM CDT [facility] PATHOLOGY LAB Case Report Surgical Pathology Report ? Case: [id number] ? Authorizing Provider: ??Jose Oliver MD ?Collected: ? 02/13/2022 08:57 AM ? Ordering Location: ? [facility] Pathology Lab ? Received: ?02/13/2022 08:57 AM ? Pathologist: ? Gian Jay MD ? Specimen: ?Slide Consultation ? 02/16/2022 1:52 PM CDT [facility] PATHOLOGY LAB Embedded Images 02/16/2022 1:52 PM CDT [facility] PATHOLOGY LAB Pathology/Cytolo gy SURGICAL PATHOLOGY CONSULTATION AND REPORT ON REFERRED SLIDES PREPARED ELSEWHERE / Unknown 02/13/2022 8:57 AM CDT 02/13/2022 8:57 AM CDT Jose Oliver MD LAB - PATHOLOGY/CY TOLOGY ORDERABLES Performing Organization Address City/State/[facility] Co de Phone Number [facility] PATHOLOGY LAB [address] [phone] documented in this encounter Visit Diagnoses Diagnosis Illness, unspecified documented in this encounter Care Teams Kitchen Clerk Relationship Specialty Start Date End Date Neva Holden MD [address] [place] [phone] PCP - General 05/06/20 05/25/23 Deisi Andrews MD [address] [place] [phone] PCP - General Family Medicine 05/26/23 10/26/24 Matti Balderas MD [address] [place] [phone] PCP - General Family Medicine 10/27/24 documented as of this encounter
--- OUTSIDE RECORDS SUMMARY | 2024-11-12 05:24 | XMS_ITS | Encounter Summary ---
Author Organization [facility] Address [address] [facility] [place] [address] Care Team Providers Care Die Repairer Stamping Name Role Phone Neva Holden MD Primary Care Provider [phone] Reason for Visit * Reason Onset Date Comments Anticoagulation 01/16/2022 Encounter Details Date Type Department Care Team (Late st Contact Info) Description 01/16/2022 Telephone [facility] Vascular Surgery [address] [place] [address] Jose A tejada MD [address] [address] Anticoagulation Social History Tobacco Use [...] COVID-19? No / Unsure 12/31/2021 8:43 AM PHOTOGRAPHIC PLATE MAKER documented as of this encounter Miscellaneous Notes * Telephone Encounter - Abdi Peck - 01/16/2022 1:25 PM CST Rody calling to let us know she is needing to have bladder surgery soon to remove a tumor and asking Dr. Clark if she should stop taking her Plavix per doing the surgery. OGRAPHIC PLATE MAKER documented in this encounter Plan of Treatment Upcoming Encounters Date Type Department Care Team (Late st Contact Info) Description 01/19/2025 11:30 AM PHOTOGRAPHIC PLATE MAKER Procedure visit [facility] - Urology [address] [place] [address] [address] [place] [address] Jsoe Oliver MD [address] [place] [phone] documented as of this encounter Goals Goal [...] filedocumented in this encounter Care Teams Die Repairer Stamping Relationship Specialty Start Date End Date Neva Holden MD [address] [place] [phone] PCP - General 05/06/20 05/25/23 documented as of this encounter
--- OUTSIDE RECORDS SUMMARY | 2024-11-12 05:24 | XMS_ITS | Encounter Summary ---
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 No / Unsure 12/02/2021 9:22 AM LINK CUTTER documented as of this encounter Last Filed Vital Signs Vital Sign Reading Time Taken Comments Blood Pressure 120/62 12/08/2021 9:58 AM LINK CUTTER Pulse 98 12/08/2021 9:58 AM LINK CUTTER Temperature 36.2 ??C (97.2 ??F) 12/08/2021 9:58 AM CS T Respiratory Rate - - Oxygen Saturation 97% 12/08/2021 9:58 AM LINK CUTTER Inhaled Oxygen Concentration - - Weight 97.5 kg (215 lb) 12/08/2021 9:58 AM LINK CUTTER Height 160 cm (5' 3 ) 12/08/2021 9:58 AM LINK CUTTER Body Mass Index 38.09 12/08/2021 9:58 AM LINK CUTTER documented in this encounter Patient Instructions * Patient Instructions* Monica Quijano MD - 12/08/2021 10:07 AM LINK CUTTER Try really hard to fully stop smoking. Please call my nurse, Adrianna, with any questions or concerns. She can be reached at: [phone] CUTTER documented in this encounter Progress Notes * [...] , Rfl: ??? vitamin D, ergocalciferol, (DRISDOL) 57842 UNITS capsule, , Disp: , Rfl: Physical [...] Normal left lower extremity arterial physiologic study. CUTTER documented in this encounter Plan of Treatment Upcoming Encounters Date Type Department Care Team (Late st Contact Info) Description 01/19/2025 11:30 AM LINK CUTTER Procedure visit [facility] - Urology [address] [place] [address] [address] [place] [address] Jose Oliver MD [facility] [place] [address] documented as of this encounter Goals Goal [...] Visit Diagnoses Diagnosis Coronary artery disease of menom[place] artery of [place]inee heart with stable angina pectoris (HCC)- Primary PVD (peripheral vascular disease) (HCC) Peripheral vascular disease, unspecified Hyperlipidemia, unspecified hyperlipidemia type Essential (primary) hypertension Unspecified essential hypertension Type 2 diabetes mellitus with diabetic polyneuropathy, unspecified whether senior living insulin use (HCC) documented in this encounter Care Teams Washer Engineer Relationship Specialty Start Date End Date Neva Holden MD [facility] [place] [phone] PCP - General 05/06/20 05/25/23 documented as of this encounter
--- OUTSIDE RECORDS SUMMARY | 2024-11-12 05:24 | XMS_ITS | Encounter Summary ---
Author Organization [facility] Address [address] [facility] [place] [address] Care Team Providers Care Gill Box Tender Name Role Phone Neva Holden MD Primary Care Provider [phone] Reason for Visit * Reason Comments Establish Care * Consult, Test & Treat (Routine) - Closed Specialty Diagnoses / Procedures Referred By Contac t Referred To Contact Urology Diagnoses Malignant neoplasm of lateral wall of bladder ([place]) [place] [address] [place] [phone] Referral ID Status Reason Start Date Expiration Date Visits Re quested Visits Authorized [id number] Closed 02/05/2022 02/05/2023 1 1 Encounter Details Date Type Department Care Team ([facility] Contact Info) Description 02/27/2022 9:30 AM CDT Office Visit [facility] [address] [place] [address] Jose Oliver MD [address] [place] [phone] Malignant neoplasm of urinary bladder, unspecified site [...] Broderick MD - 02/27/2022 10:32 AM CDT [facility] Division of Urologic Surgery Jose Oliver MD Date of Visit: 02/27/2022 Patient Name: Rody Zaidi : 1960 Medical Record: [id number] Contact (home) Age: [age] year old Sex: female Referring Physician: Kiko Santa MD [address] [place] [address] [place] [address] Chief Complaint: Chief Complaint Patient presents with [...] flank pain and presented to ED at [facility]. CT CAP was performed, which showed [...] 2014 ??? HX TUBAL LIGATION 1989 ??? [place] FOOT/TOES SURGERY PROC UNLISTED ??? Tympanostomy 2013 [...] Disorder, Panic Disorder 45 tablet 0 ??? tgpmgycb-nhxztzhkh-bpnudxkq (MAXITROL) ophthalmic suspension INSTILL 1 DROP INTO AFFECTED EYE(S) EVERY 3 TO 4 HOURS WHILE AWAKE ??? vyoiypwa-tfjagbova-bh (CORTISPORIN) 3.5-43213-3 otic suspension SHAKE LIQUID AND INSTILL 4 [...] Reasons: need follow up visit for further [phone] option 1 90 tablet 3 ??? polyethylene [...] capsule 11 ??? 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 Urinary bladder, transurethral resection, (OSC: [id number]; 01/21/2022): - Invasive urothelial cell carcinoma, high-grade - No definitive detrusor muscle seen B. Urinary bladder, left ureteral orifice transurethral resection, (OSC: [id number]; 01/21/2022): - Invasive urothelial cell carcinoma, high-grade [...] st Contact Info) Description 01/19/2025 11:30 AM FIELD ARTILLERY RADAR OPERATOR Procedure visit [facility] - Urology [address] [place] [address] [address] [place] [phone] oJse Oliver MD [address] [place] [phone] documented as of this encounter Goals Goal [...] POCT neg Ketones UA POCT neg Specific Ong UA 1.020 Blood Urine POCT 200 abel/uL [...] Primary documented in this encounter Care Teams Gill Box Tender Relationship Specialty Start Date End Date Neva Hloden MD [address] [place] [phone] PCP - General 05/06/20 05/25/23 documented as of this encounter
--- OUTSIDE RECORDS SUMMARY | 2024-11-12 05:24 | XMS_ITS | Encounter Summary ---
Author Organization [facility] Address [address] [place] [address] Care Team Providers Care Storage Battery Tester Name Role Phone Neva Holden MD Primary Care Provider [phone] Encounter Details Date Type Department Care Team (Latest Contact Info) Description 12/02/2021 9:25 AM GUNSMITH APPRENTICE - 12/02/2021 11:59 PM GUNSMITH APPRENTICE Hospital Encounter [facility] LAB OP DRAW STATION [address] [place] [phone] Discharge Disposition: Home or Self Care Social [...] COVID-19? No / Unsure 12/02/2021 9:22 AM GUNSMITH APPRENTICE documented as of this encounter Medications at [...] evening meal 12/27/2016 vitamin D, ergocalciferol, (DRISDOL) 66773 UNITS capsule Take 1 (one) capsule by [...] st Contact Info) Description 01/19/2025 11:30 AM GUNSMITH APPRENTICE Procedure visit [facility] - Urology [address] [place] [address] [address] [place] [address] Jose Oliver MD [address] [place] [phone] documented as of this encounter Goals Goal [...] Procedure Name Priority Date/Time Associated Diagnosis Comments OTRDT-5-VEFRYGBORFU BLOOD PHENOTYPING PANEL Routine 12/02/2021 10:26 AM GUNSMITH APPRENTICE Pulmonary emphysema, unspecified emphysema type (HCC) KFXJH-6-TFWDFOYVGHO BLOOD Routine 12/02/2021 10:26 AM GUNSMITH APPRENTICE Pulmonary emphysema, unspecified emphysema type (HCC) LDL CHOLESTEROL DIRECT Routine 12/02/2021 10:26 AM GUNSMITH APPRENTICE Coronary artery disease of [place] artery of [place] heart with stable angina pectoris (HCC) LIPID PROFILE Routine 12/02/2021 10:26 AM GUNSMITH APPRENTICE Coronary artery disease of [place] artery of [place] heart with stable angina pectoris (HCC) documented in this encounter Results * LDL CHOLESTEROL DIRECT (12/02/2021 10:26 AM GUNSMITH APPRENTICE) LDL Direct 95 <100 mg/dL 12/02/2021 12:15 PM GUNSMITH APPRENTICE [facility] Comment: ATP III Classification of LDL Cholesterol: ?<100 mg/dL: ??Optimal ? 100 - 129 mg/dL: ??Near Optimal/Above Optimal ? 130 - 159 mg/dL: ??Borderline High ? 160 - 189 mg/dL: ??High ?>190 mg/dL: ??Very High Blood BLOOD SPECIMEN / Unknown Lab Venipuncture / Unknown 12/02/2021 10:26 AM GUNSMITH APPRENTICE 12/02/2021 11:31 AM GUNSMITH APPRENTICE Monica Quijano MD LAB - CHEMISTRY ORD IRISH Performing Organization Address City/[facility]/ZIP Co de Phone Number [address] [address], [facility] [phone] * GGGAT-5-ESEECMNTKRL BLOOD (12/02/2021 10:26 AM GUNSMITH APPRENTICE) Gjzzc-1-Wssjtu ypsin 164 90 - 200 mg/dL 12/02/2021 12:30 PM GUNSMITH APPRENTICE [facility] Blood BLOOD SPECIMEN / Unknown Lab Venipuncture / Unknown 12/02/2021 10:26 AM GUNSMITH APPRENTICE 12/02/2021 11:13 AM GUNSMITH APPRENTICE Hollis Mccall MD LAB - CHEMISTRY ORDJunie CONTRERAS [address] [place] [address], [facility] [phone] * LBEXR-9-LESOWGKDWGV BLOOD PHENOTYPING PANEL (12/02/2021 10:26 AM [facility]) [facility] Igugn-7-Ynkvvzvpcx n Phenotype M2M2 12/05/2021 5:33 PM GUNSMITH APPRENTICE [facility] ([facility]) Comment: The patient appears to have a normal phenotype. All M alleles (including subtypes M1, M2, and M3) produce normal serum concentrations of iijni-6-jpddcccj inhibitor and are not associated with clinical disease. Caution in interpretation is advised if the patient has been transfused within the previous 21 days. Performed By: [email or web address] [address] [place] [address] Restoration Technician: Starr Boswell MD Looyp-4-Nfqqzajzol n 151 90 - 200 mg/dL 12/05/2021 5:33 PM [facility] ([facility]) Comment:To convert to umol/L , multiply mg/dL by 0.185 Blood BLOOD SPECIMEN / Unknown Lab Venipuncture / Unknown 12/02/2021 10:26 AM GUNSMITH APPRENTICE 12/02/2021 11:13 AM [facility] Hollis Mccall MD LAB - CHEMISTRY BASSAM CONTRERAS [facility] Organization Address City/State/ZIP Co de Phone Number [facility]) [address] * (ABNORMAL) LIPID PROFILE (12/02/2021 10:26 AM [facility]) [facility] Cholesterol Total 209(H) <200 mg/dL 12/02/2021 11:59 AM [facility] HDL 38(L) >40 mg/dL 12/02/2021 11:59 AM [facility] Comment: ATP III Classification of HDL Cholesterol: ? <40 mg/dL: ??Considered a major risk factor. ? >60 mg/dL: ??Considered a negative risk factor. ? LDL Calculated 12/02/2021 11:59 AM [facility] Comment:Calculation of LDL v alue was not performed because triglyceride concentrations greater than 400 mg/dL render the calculated value invalid. For this reason, the LDL Direct assay for measurement of LDL Cholesterol has been performed (per laboratory protocol). Triglycerides 544(H) <150 mg/dL 12/02/2021 11:59 AM GUNSMITH APPRENTICE [facility] Comment: ATP III Classification of Triglycerides: ?<150 mg/dL: ??Normal ? 150 - 199 mg/dL: ??Borderline High ? 200 - 400 mg/dL: ??High ?>500 mg/dL: ??Very High Blood BLOOD SPECIMEN / Unknown Lab Venipuncture / Unknown 12/02/2021 10:26 AM GUNSMITH APPRENTICE 12/02/2021 11:31 AM [facility] Monica Quijano MD LAB - CHEMISTRY ORD ERABLES [facility] [address] [place] [phone], [facility] [phone] documented in this encounter Visit Diagnoses Diagnosis Coronary artery disease of [place] artery of [place] heart with stable angina pectoris (HCC) Pulmonary emphysema, unspecified emphysema type (HCC) documented in this encounter Care Teams Storage Battery Tester Relationship Specialty Start Date End Date Neva Holden MD [address] [place] [phone] PCP - General 05/06/20 05/25/23 documented as of this encounter
--- OUTSIDE RECORDS SUMMARY | 2024-11-12 05:24 | XMS_ITS | Encounter Summary ---
Author Organization [facility] Address [address] [place] [address] Care Team Providers Care Quarrying Specialist Name Role Phone Neva Holden MD Primary Care Provider [phone] Reason for Visit * Reason Onset Date Comments LABS ONLY 10/22/2021 Encounter Details Date Type Department Care Team (Late st Contact Info) Description 10/22/2021 Telephone [facility] [address] [facility] [address] [place] [address] Adrianna Adair, RN LABS ONLY Social History [...] COVID-19? No / Unsure 10/06/2021 12:48 PM SANITATION TECHNICIAN documented as of this encounter Miscellaneous Notes [...] 12/02 to remind patient about fasting lab TATION TECHNICIAN documented in this encounter Plan of Treatment Upcoming Encounters Date Type Department Care Team (Late st Contact Info) Description 01/19/2025 11:30 AM SANITATION TECHNICIAN Procedure visit [facility] Physician Group - Urology [address] [place] [address] [address] [place] [phone] Jose Oliver MD [address] [place] [phone] documented as of this encounter Goals Goal [...] on filedocumented in this encounter Care Teams Quarrying Specialist Relationship Specialty Start Date End Date Neva Holden MD [address] [place] [phone] PCP - General 05/06/20 05/25/23 documented as of this encounter
--- OUTSIDE RECORDS SUMMARY | 2024-11-12 05:24 | XMS_ITS | Encounter Summary ---
Author Organization [facility] Address [address] [place] [address] Care Team Providers Care Supervisor Telephone Clerks Name Role Phone Deisi Andrews MD Primary Care Provider [phone] Reason for Visit * Reason Onset Date Comments Results 07/05/2023 Encounter Details Date Type Department Care Team (Late st Contact Info) Description 07/05/2023 Telephone [facility] - Urology [facility], [place] [address] Tiffany Dunlap RN Results Social [...] st Contact Info) Description 01/19/2025 11:30 AM CORK FLOOR INSTALLER Procedure visit [facility] Physician Group - Urology [address] [place] [address] [address] [place] [address] Jose Oliver MD [facility] [address] [place] [phone] documented as of this encounter Goals Goal [...] filedocumented in this encounter Care Teams Supervisor Telephone Clerks Relationship Specialty Start Date End Date Deisi Andrews MD [address] [place] [phone] PCP - General Family Medicine 05/26/23 10/26/24 documented as of this encounter
--- OUTSIDE RECORDS SUMMARY | 2024-11-12 05:24 | XMS_ITS | Encounter Summary ---
Author Organization [facility] Health Address [address] [place] [address] Care Team Providers Care Logistician Name Role Phone Deisi Andrews MD Primary Care Provider [phone] Encounter Details Date Type Department Care Team [...] st Contact Info) Description 01/19/2025 11:30 AM PRODUCT DEVELOPMENT ASSISTANT Procedure visit [facility] Physician Group - Urology [address] [place] [address] [address] [place] [address] Jose Oliver MD [address] [place] [address] documented as of this encounter Goals Goal [...] on filedocumented in this encounter Care Teams Logistician Relationship Specialty Start Date End Date Deisi Andrews MD [address] [place] [address] PCP - General Family Medicine 05/26/23 10/26/24 documented as of this encounter
--- OUTSIDE RECORDS SUMMARY | 2024-11-12 05:24 | XMS_ITS | Encounter Summary ---
Author Organization [facility] Health Address [address] [facility] [place] [address] Care Team Providers Care Weighbridge Operator Name Role Phone Deisi Andrews MD Primary Care Provider [phone] Encounter Details Date Type Department Care Team [...] st Contact Info) Description 01/19/2025 11:30 AM BOOK JOGGER Procedure visit [facility] Physician Group - Urology [address] [place] [address] [address] [place] [address] Jose Oliver MD [address] [place] [address] documented as of this encounter Goals Goal [...] on filedocumented in this encounter Care Teams Weighbridge Operator Relationship Specialty Start Date End Date Deisi Andrews MD [address] [place] [address] PCP - General Family Medicine 05/26/23 10/26/24 documented as of this encounter
--- OUTSIDE RECORDS SUMMARY | 2024-11-12 05:24 | XMS_ITS | Encounter Summary ---
Author Organization [facility] Address [address] [place] [address] Care Team Providers Care Package Sealer Machine Name Role Phone Neva Holden MD Primary Care Provider [phone] Reason for Visit * Radiology Services (Routine) - Closed Specialty Diagnoses / Procedures Referred By Contac t Referred To Contact Echosonography Diagnoses Pulmonary emphysema, unspecified emphysema type (HCC) Procedures ECHO COMPLETE W BUBBLE STUDY Hollis Mccall MD [address] [facility] 2L DIV OF PULMONARY/[place] [address] Referral ID Status Reason Start Date Expiration Date Visits Re quested Visits Authorized [id number] Closed 11/20/2021 11/20/2022 1 1 Encounter Details Date Type Department Care Team (Latest Contact Info) Description 12/31/2021 8:52 AM SPOOL WINDER - 12/31/2021 11:59 PM [facility] Hospital Encounter [facility] ECHO [address] [place] [address] [place] [address] [place] [address] 2L DIV OF PULMONARY/CRITIC AL CARE [place], [place] [phone] Discharge Disposition: Home or Self Care Social [...] COVID-19? No / Unsure 12/31/2021 8:43 AM SPOOL WINDER documented as of this encounter Medications at [...] tablet 4 12/08/2021 vitamin D, ergocalciferol, (DRISDOL) 02513 UNITS capsule Take 1 (one) capsule by [...] st Contact Info) Description 01/19/2025 11:30 AM SPOOL WINDER Procedure visit [facility] Physician Group - Urology [address] [place] [address] [address] [place] [phone] Jose Oliver MD [facility] [place]IC [place] [phone] documented as of this encounter Goals Goal [...] W BUBBLE STUDY Routine 12/31/2021 9:47 AM SPOOL WINDER Pulmonary emphysema, unspecified emphysema type (HCC) documented [...] before administration. $ Given 12/31/2021 9:46 AM SPOOL WINDER 10 mL $ Given 12/31/2021 9:45 AM SPOOL WINDER 10 mL perflutren lipid microsphere (Definity) injection 0.5 mL 0.5 mL, Intravenous, INTRA-PROCEDURE MULTIPLE, 6 doses, Starting on 12/31/21 at 0924, Until [place] 01/01/22 at 0202, For Echo Procedure - Per Protocol Give slowly Shake well before using. $ Given 12/31/2021 9:46 AM SPOOL WINDER 0.5 mL documented in this encounter Care Teams Package Sealer Machine Relationship Specialty Start Date End Date Neva Hodlen MD [address] [place] [phone] PCP - General 05/06/20 05/25/23 documented as of this encounter
--- OUTSIDE RECORDS SUMMARY | 2024-11-12 05:24 | XMS_ITS | Encounter Summary ---
Author Organization [facility] Address [address] [place] [address] Care Team Providers Care Field Service Technician Name Role Phone Neva Holden MD Primary Care Provider [phone] Reason for Visit * Reason Comments Refill Request Encounter Details Date Type Department Care Team (Late st Contact Info) Description 10/30/2021 Refill [facility] [address] [facility] [address] [place] [address] Monica Quijano MD Refill Request Social History [...] COVID-19? No / Unsure 10/06/2021 12:48 PM SPEEDER 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 documented as of this encounter Miscellaneous Notes * Telephone Encounter - Adrianna Adair RN - 10/30/2021 2:36 PM CST Received electronic refill request from [facility] pharmacy for Repatha. Last seen 06/10/2021 Monica Quijano MD Has appt 12/08/21 Refilled per protocol DER 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 documented in this encounter Plan of Treatment Upcoming Encounters Date Type Department Care Team (Late st Contact Info) Description 01/19/2025 11:30 AM SPEEDER 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 Procedure visit [facility] [address] [place] [address] [address] [place] [address] Jose Oliver MD [address] [place] [address] documented as of this encounter Goals Goal [...] filedocumented in this encounter Care Teams Field Service Technician Relationship Specialty Start Date End Date Neva Holden MD [address] [place] [phone] PCP - General 05/06/20 05/25/23 documented as of this encounter
--- OUTSIDE RECORDS SUMMARY | 2024-11-12 05:24 | XMS_ITS | Encounter Summary ---
Author Organization [facility] Address [address] [facility] [place] [address] Care Team Providers Care Glue Reel Operator Name Role Phone Neva Holden MD Primary Care Provider [phone] Reason for Referral * Radiology Services (Routine) - Closed Specialty Diagnoses / Procedures Referred By Contac t Referred To Contact Echosonography Diagnoses Pulmonary emphysema, unspecified emphysema type (HCC) Procedures ECHO COMPLETE W BUBBLE STUDY Hollis Mccall MD [address] DIV OF PULMONARY/[place] [address] Referral ID Status Reason Start Date Expiration Date Visits Re quested Visits Authorized [id number] Closed 11/20/2021 11/20/2022 1 1 DISTRIBUTOR Reason for Visit * Reason Comments COPD Encounter Details Date Type Department Care Team (Late st Contact Info) Description 11/03/2021 3:30 PM WORK DISTRIBUTOR Office Visit [facility] Pulmonary, Critical Care and Sleep Medicine [address] [facility], [place] [phone] Bora Ferreira MD [address] [place] [address] Pulmonary emphysema, unspecified emphysema type (HCC) (Primary [...] COVID-19? No / Unsure 10/06/2021 12:48 PM WORK DISTRIBUTOR documented as of this encounter Last Filed Vital Signs Vital Sign Reading Time Taken Comments Blood Pressure 154/96 11/03/2021 3:16 PM WORK DISTRIBUTOR Pulse 103 11/03/2021 3:16 PM WORK DISTRIBUTOR Temperature - - Respiratory Rate 24 11/03/2021 3:16 PM WORK DISTRIBUTOR Oxygen Saturation 98% 11/03/2021 3:16 PM WORK DISTRIBUTOR Inhaled Oxygen Concentration - - Weight 97 kg (213 lb 12.8 oz) 11/03/2021 3:16 PM WORK DISTRIBUTOR Height - - Body Mass Index 37.87 09/30/2021 8:02 AM WORK DISTRIBUTOR documented in this encounter Progress Notes * Bora Ferreira MD - 11/03/2021 4:31 PM CST Images from the original note were not included. Division of Pulmonary, Critical Care, and Sleep Medicine [address] [place] [address], [address] [place] [address] HISTORY OF PRESENT ILLNESS: Rody Zaidi is [...] , Rfl: ??? 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 Orders Placed This Encounter ??? DVUHZ-2-ALOLFCKJGNN BLOOD PHENOTYPING PANEL Standing Status: Future Standing Expiration Date: 11/28/2022 Order Specific Question: Release to patient Answer: Immediate ??? EEPXR-7-UTTZZSILIWY BLOOD Standing Status: Future Standing Expiration Date: 11/28/2022 Order Specific Question: Release to patient Answer: Immediate ??? Ref to Physical Therapy - [facility] PT Standing Status: Future Standing Expiration Date: [...] of Pulmonary, Critical Care and Sleep Medicine [facility] Pager:[phone] DISTRIBUTOR Associated attestation - Hollis Mccall MD - 11/14/2021 1:52 PM WORK DISTRIBUTOR I saw and evaluated the patient. I reviewed the resident???s note and agree with findings and plan as documented in the resident???s note Hollis Mccall MD Division of Pulmonary, Critical Care, & Sleep Medicine [facility] P: [phone] 11/14/2021 , 1:52 PM documented in this encounter Plan of Treatment Upcoming Encounters Date Type Department Care Team (Late st Contact Info) Description 01/19/2025 11:30 AM WORK DISTRIBUTOR Procedure visit [facility] - Urology [address] [facility] [address] [place] [phone] Jose Oliver MD [address] [place] [address] documented as of this encounter [...] COMPLETE W BUBBLE STUDY (12/31/2021 9:47 AM WORK DISTRIBUTOR) Anatomical Region Laterality Modality Chest Echo 12/31/2021 9:07 AM WORK DISTRIBUTOR Narrative Procedure Note Campos Fraga MD - 01/08/2022 Hollis Mccall MD ECHOCARDIOGRAPHY RAD IANT * CNCUQ-7-BYDSWQIGQXP BLOOD (12/02/2021 10:26 AM WORK DISTRIBUTOR) Pathologist [facility] Nqkla-5-Etvizl ypsin 164 90 - 200 mg/dL 12/02/2021 12:30 PM WORK DISTRIBUTOR [facility] Blood BLOOD SPECIMEN / Unknown Lab Venipuncture / Unknown 12/02/2021 10:26 AM WORK DISTRIBUTOR 12/02/2021 11:13 AM WORK DISTRIBUTOR Hollis Mccall MD LAB - CHEMISTRY BASSAM CONTRERAS [facility] Organization Address City/State/ZIP Co de Phone Number [facility] [address] [place] [address], [facility] [phone] * YPEQN-7-JNGOTHLJGLK BLOOD PHENOTYPING PANEL (12/02/2021 10:26 AM WORK DISTRIBUTOR) Mjcti-8-Rdprjyzatf n Phenotype M2M2 12/05/2021 5:33 PM WORK DISTRIBUTOR [employer] ([facility]) Comment: The patient appears to have a normal phenotype. All M alleles (including subtypes M1, M2, and M3) produce normal serum concentrations of fvmnp-7-aekemzcm inhibitor and are not associated with clinical disease. Caution in interpretation is advised if the patient has been transfused within the previous 21 days. Performed By: [employer] [address] [place] [address] Chemistry Tutor: Starr Boswell MD Wrgqn-9-Gfwoqhczgl n 151 90 - 200 mg/dL 12/05/2021 5:33 PM WORK DISTRIBUTOR [employer] ([facility]) Comment:To convert to umol/L , multiply mg/dL by 0.185 Blood BLOOD SPECIMEN / Unknown Lab Venipuncture / Unknown 12/02/2021 10:26 AM WORK DISTRIBUTOR 12/02/2021 11:13 AM WORK DISTRIBUTOR Hollis Mccall MD LAB - CHEMISTRY BASSAM CONTRERAS [employer] [facility]) [address] documented in this encounter Visit Diagnoses Diagnosis Pulmonary emphysema, unspecified emphysema type (HCC)- Primary Pulmonary emphysema, unspecified emphysema type (HCC) documented in this encounter Care Teams Glue Reel Operator Relationship Specialty Start Date End Date Neva Holden MD [address] [place] [phone] PCP - General 05/06/20 05/25/23 documented as of this encounter
--- OUTSIDE RECORDS SUMMARY | 2024-11-12 05:24 | XMS_ITS | Encounter Summary ---
Author Organization [facility] Address [address] [facility] [place] [address] Care Team Providers Care Hot Dog Vender Name Role Phone Neva Holden MD Primary Care Provider [phone] Encounter Details Date Type Department Care Team (Late Contact Info) Description 11/24/2021 Orders Only [facility] Pul[facility], Critical Care and Sleep Medicine [address] [place] [phone] Bora Ferreira MD [address] [place] [address] Social History Tobacco Use Types Packs/Day Years [...] COVID-19? No / Unsure 12/02/2021 9:22 AM ROLLER STITCHER documented as of this encounter Plan of Treatment Upcoming Encounters Date Type Department Care Team (Late Contact Info) Description 01/19/2025 11:30 AM ROLLER STITCHER [facility] [address] [place] [address] [address] [place] [address] Jose Oliver MD [address] [place] [address] documented as of this encounter Goals Goal [...] filedocumented in this encounter Care Teams Hot Dog Vender Relationship Specialty Start Date End Date Neva Holden MD [address] [place] [phone] PCP - General 05/06/20 05/25/23 documented as of this encounter
--- OUTSIDE RECORDS SUMMARY | 2024-11-12 05:24 | XMS_ITS | Encounter Summary ---
Author Organization [facility] Address [address] [facility] [address] Care Team Providers Care Bit Tripoler Name Role Phone Neva Holden MD Primary Care Provider [phone] Encounter Details Date Type Department Care Team [...] COVID-19? No / Unsure 12/02/2021 9:22 AM SLAG DUMPER documented as of this encounter Plan of Treatment Upcoming Encounters Date Type Department Care Team (Late st Contact Info) Description 01/19/2025 11:30 AM SLAG DUMPER Procedure visit [facility] - Urology [address] [place] [address] [address] [place] [phone] Jose Oliver MD [address] [place] [phone] documented as of this encounter Goals Goal [...] on filedocumented in this encounter Care Teams Bit Tripoler Relationship Specialty Start Date End Date Neva Holden MD [address] [place] [phone] PCP - General 05/06/20 05/25/23 documented as of this encounter
--- OUTSIDE RECORDS SUMMARY | 2024-11-12 05:24 | XMS_ITS | Encounter Summary ---
Author Organization [facility] Address [address] [place] [address] Care Team Providers Care Entertainment Director Name Role Phone Neva Holden MD Primary Care Provider [phone] Reason for Visit * Reason Comments Follow-up Encounter Details Date Type Department Care Team (Latest Contact Info) Description 12/02/2021 8:30 AM SUPERVISOR TILE AND MOTTLE Office Visit [facility] Ophthalmology [address] [place] [phone] Tyrone Zuniga MD Blurred vision, bilateral (Primary [...] COVID-19? No / Unsure 12/02/2021 9:22 AM SUPERVISOR TILE AND MOTTLE documented as of this encounter Progress Notes [...] Take 17 (seventeen) g by mouth once [id number] g 1 ??? potassium chloride (KLOR-CON M) [...] TWICE DAILY ??? vitamin D, ergocalciferol, (DRISDOL) 87575 UNITS capsule No current facility-administered medications for [...] 2014 ??? HX TUBAL LIGATION 1989 ??? [place] FOOT/TOES SURGERY PROC UNLISTED ??? Tympanostomy 2014 [...] 5 oclock Refraction Wearing Rx Sphere Cylinder [place] Right -2.75 +0.25 137 Left -3.00 +1.50 [...] far as management/treatment concern. Tyrone Zuniga MD RVISOR TILE AND MOTTLE documented in this encounter Plan of Treatment Upcoming Encounters Date Type Department Care Team (Late st Contact Info) Description 01/19/2025 11:30 AM SUPERVISOR TILE AND MOTTLE Procedure visit [facility] - Urology [address] [place] [address] [address] [place] [address] Jose Oliver MD [address] [place] [address] documented as of this encounter Goals Goal [...] OCT TEST [facility] Routine 12/02/2021 9:29 AM SUPERVISOR TILE AND MOTTLE Blurred vision, bilateral documented in this encounter Results * OPH OCT TEST [facility] (12/02/2021 9:29 AM SUPERVISOR TILE AND MOTTLE) Anatomical Region Laterality Modality Other 12/02/2021 9:29 AM SUPERVISOR TILE AND MOTTLE Tyrone Zuniga MD OPHTHALMOLO [facility] ORDERABLES documented in this encounter Visit Diagnoses Diagnosis Blurred vision, bilateral- Primary Other specified visual disturbances Acute conjunctivitis, unspecified acute conjunctivitis type, unspecified laterality Refractive error Unspecified disorder of refraction and accommodation documented in this encounter Care Teams Entertainment Director Relationship Specialty Start Date End Date Neva Holden MD [address] [place] [phone] PCP - General 05/06/20 05/25/23 documented as of this encounter
--- OUTSIDE RECORDS SUMMARY | 2024-11-12 05:24 | XMS_ITS | Encounter Summary ---
Author Organization [facility] Address [address] [facility] [place] [address] Care Team Providers Care Frontload Driver Name Role Phone Deisi Andrews MD Primary Care Provider [phone] Reason for Visit * Reason Comments Refill Request Encounter Details Date Type Department Care Team ([facility] st Contact Info) Description 07/05/2023 Refill [facility] - Pulmonology [address] [place] [address], [place] [phone] Billy Don MD [address] [place] [address] OF PULMONARY/[place] [address] Refill Request Social History Tobacco Use Types [...] st Contact Info) Description 01/19/2025 11:30 AM CHILD'S NURSE Procedure visit [facility] - Urology [address] [place] [address] [address] [place] [phone] Jose Oliver MD [address] [place] [phone] documented as of this encounter Goals Goal [...] Stage 2 moderate COPD by GOLD classification ([facility]) documented in this encounter Care Teams Frontload Driver Relationship Specialty Start Date End Date Deisi Andrews MD [address] [place] [address] [place] [phone] PCP - General Family Medicine 05/26/23 10/26/24 documented as of this encounter
--- OUTSIDE RECORDS SUMMARY | 2024-11-12 05:24 | XMS_ITS | Encounter Summary ---
Author Organization [facility] Address [address] [facility] [place] [address] Care Team Providers Care It Teacher Name Role Phone Neva Holden MD Primary Care Provider [phone] Reason for Visit * Reason Onset Date Comments Pre-op Clearance 01/14/2022 Encounter Details Date Type Department Care Team (Late st Contact Info) Description 01/14/2022 Telephone [facility] [address] [facility] [place] [address] [place] [address] Adrianna Adair, RN Pre-op Clearance Social History [...] COVID-19? No / Unsure 12/31/2021 8:43 AM GEAR TECHNICIAN documented as of this encounter Miscellaneous Notes * Telephone Encounter - Adrianna Adair RN - 01/15/2022 9:36 AM CST Faxed note from provider, received confirmation. Spoke with Francesca and she states that she received my voicemail, has not received fax from this morning yet. She will reach out to vascular about plavix. Informed her to call with any questions TECHNICIAN * Telephone Encounter - Adrianna Adair RN - 01/14/2022 3:07 PM CST Left message with Francesca in urology with update about patient from Dr. Quijano. Awaiting return call TECHNICIAN * Telephone Encounter - Adrianna Adair RN [...] just needs to be documented. Informed her manual writer would send message to provider for surgery clearance for patient. TECHNICIAN documented in this encounter Plan of Treatment Upcoming Encounters Date Type Department Care Team (Late st Contact Info) Description 01/19/2025 11:30 AM GEAR TECHNICIAN Procedure visit [facility] - Urology [address] [place] [address] [address] [place] [address] Jose Oliver MD [address] [address] documented as of this encounter Goals Goal [...] filedocumented in this encounter Care Teams It Teacher Relationship Specialty Start Date End Date Neva Holden MD [address] [place] [phone] PCP - General 05/06/20 05/25/23 documented as of this encounter
--- OUTSIDE RECORDS SUMMARY | 2024-11-12 05:24 | XMS_ITS | Encounter Summary ---
Author Organization [facility] Address [address] [facility] [place] [address] Care Team Providers Care Technical Services Analyst Name Role Phone Neva Holden MD Primary Care Provider [phone] Deisi Andrews MD Primary Care Provider [phone] Matti Balderas MD Primary Care Provider [phone] Encounter Details Date Type Department Care Team (Late st Contact Info) Description 02/13/2022 Lab Requisition [facility] Care Pathology Lab [address] [place] [address] Jose Oliver MD [address] [place] [phone] Illness, unspecified Social History Tobacco Use Types [...] (Late Contact Info) Description 01/19/2025 11:30 AM MOBILE LOUNGE DRIVER OR OPERATOR Procedure visit [facility] - Urology [address] [place] [address] [address] [place] [address] Jose Oliver MD [address] [place] [address] documented as of this encounter Goals Goal [...] unspecified documented in this encounter Care Teams Technical Services Analyst Relationship Specialty Start Date End Date Neva Holden MD [address] [place] [phone] PCP - General 05/06/20 05/25/23 Deisi Andrews MD [address] [place] [address] [place] [phone] PCP - General Family Medicine 05/26/23 10/26/24 Matti Balderas MD [address] [place] [phone] PCP - General Family Medicine 10/27/24 documented as of this encounter
--- OUTSIDE RECORDS SUMMARY | 2024-11-12 05:24 | XMS_ITS | Encounter Summary ---
Author Organization [facility] Address [address] [facility] [address] Care Team Providers Care Explosive Operator Name Role Phone Neva Holden MD Primary Care Provider [phone] Reason for Visit * Auth/Cert (Routine) Specialty Diagnoses / Procedures Referred By Contac t Referred To Contact Diagnoses Malignant neoplasm of urinary bladder, unspecified site (HCC) Malignant neoplasm of urinary bladder, unspecified site Procedures TRANSURETHRAL RESECTION BLADDER TUMOR (TURBT) Referral ID Status Reason Start Date Expiration Date Visits Re quested Visits Authorized [id number] 1 1 Encounter Details Date Type Department Care Team (Latest Contact Info) Description 01/18/2023 5:13 AM BRAKE LINER - 01/18/2023 12:11 PM [facility] Encounter [facility] [address] [place] [phone] Jose Oliver MD [address] [facility] 2[address] DIV [place] [address] Surgery General Discharge Disposition: Home or Self [...] Comments Blood Pressure 139/74 01/18/2023 11:39 AM BRAKE LINER Pulse 78 01/18/2023 11:39 AM BRAKE LINER Temperature 36.5 ??C (97.7 ??F) 01/18/2023 11:[address] Respiratory Rate 11 01/18/2023 11:39 AM BRAKE LINER Oxygen Saturation 93% 01/18/2023 11:39 AM BRAKE LINER Inhaled Oxygen Concentration - - Weight 90.4 kg (199 lb 6.4 oz) 01/18/2023 7:57 A M BRAKE LINER Height 160 cm (5' 3 ) 01/18/2023 7:57 AM BRAKE LINER Body Mass Index 35.32 01/18/2023 7:57 AM BRAKE LINER documented in this encounter Functional Status Functional [...] Kenan Argueta MD - 01/18/2023 10:01 AM BRAKE LINER Images from the original note were not included. [facility] Urology You had a procedure called [...] prescribed narcotic pain medication such as Oxycodone, Clinton, or Tramadol. This should be taken as needed for severe pain only. Do not drink alcohol, drive, or operate heavy machinery while taking this type of medication. If the narcotic is Clinton, please understand that Clinton has Tyelonol in it. If you are [...] surgery or the recovery process, please contact [facility] Urology [phone] on weekdays during regular business hours. If you have an urgent or emergent question on a weekend or after regular business hours, please contact [facility] at [phone] and ask for the provider an/sqq 89(v)15 sonar system journeyman for Urology. In addition, please contact us [...] the touch, or non-clear, foul-smelling drainage) E LINER documented in this encounter Medications at Time of Discharge Medication Sig Dispensed Refills Start Date End Date albuterol (PROVENTIL;VENTOLIN) (2.5 MG/3ML) 0.083% nebulizer solution Inhale 2.5 (two and one-half) mg by mouth every 4 hours as needed for Shortness of Breath 75 mL 11/03/2021 albuterol HFA (PROAIR HFA) 108 (90 Base) MCG/ACT inhalerIndications:Sta ge 2 moderate COPD by GOLD classification ([facility]) Inhale 2 (two) puffs by [...] tablet 4 12/08/2021 vitamin D, ergocalciferol, (DRISDOL) 88308 UNITS capsule Take 1 (one) capsule by [...] ge 2 moderate COPD by GOLD classification ([facility]) INHALE 2 PUFFS BY MOUTH [...] gnant neoplasm of urinary bladder, unspecified site ([facility]) Take 1 (one) tablet by mouth every 6 hours as needed for Pain 10 tablet 01/18/2023 10/22/2023 pantoprazole EC (PROTONIX) 40 MG tabletIndications:need follow up visit for further [phone] option 1 Take 1 (one) tablet by mouth once daily Reasons: need follow up visit for further [phone] option 1 90 tablet 3 01/23/2022 06/15/2024 [...] questions, please contact the outpatient pharmacy at [phone]. Radha Curiel CPhT [facility] Out[facility] at [address], First Floor [place], [place] [address] Hours of Operation Wednesday - Wednesday: 8:00am to 6:00pm Wednesday: 9:00am to 1:00pm Epic: [facility] *Ensure the patient and clinic's nearby ZIP codes box is unchecked* * [place] Knutson, MEI-SONNY - 01/18/2023 7:56 AM CST Blue light Cystoscopy: -Pt emptied Bladder prior to coming into Pre-post room - Cysview solution 100mg (hexaminolevulinate HCL) instilled into bladder via catheter. Pt tolerated. E LINER documented in this encounter H&P Notes * [...] List Diagnosis Date Noted ??? CAD in minto artery 10/24/2020 Priority: Not Prioritized ??? PAD (peripheral artery disease) ([facility]) Priority: Not Prioritized ??? MDD (recurrent major depressive disorder) in remission ([facility]) 08/05/2018 Priority: Not Prioritized ??? GIOVANNY (generalized anxiety disorder) 06/09/2017 ICD-10 update ??? Obesity 01/09/2017 ??? Nocturia 01/09/2017 ??? Personal history of transient ischemic attack (TIA), and cerebral infarction without residual deficits 01/09/2017 reported ??? Occlusion and stenosis of bilateral carotid arteries 01/09/2017 ??? Chronic pain syndrome 01/09/2017 ??? Type 2 diabetes mellitus with diabetic polyneuropathy ([facility]/HCC) 01/09/2017 EMG/[facility] ??? Insomnia due to medical condition 01/09/2017 ??? Gastro-esophageal reflux disease without esophagitis 01/09/2017 ??? Primary osteoarthritis of one knee 01/09/2017 ??? Other asthma 01/09/2017 ??? Sleep related leg cramps 01/09/2017 ??? Other forms of angina pectoris ([facility]/HCC) 01/09/2017 ??? Essential (primary) hypertension 01/09/2017 ??? Hypersomnia due to medical condition 01/09/2017 ??? Chronic obstructive pulmonary disease ([facility]/HCC) 01/09/2017 ??? Personal history of traumatic brain injury 01/09/2017 Reports brief LOC. Age 17. ??? Restless legs syndrome 01/01/2017 ??? Obstructive sleep apnea 01/01/2017 ??? Cervicalgia 04/28/2015 ??? Other chronic pain 04/28/2015 Past Medical History: Diagnosis Date ??? Anxiety ??? Asthma ??? Atherosclerosis of coronary artery ??? Bladder cancer ([facility]/HCC) ??? Chest pain pain 10/23 ??? Chronic obstructive pulmonary disease (COPD) ([facility]/HCC) ??? Depression ??? Essential hypertension [...] ??? [place] FOOT/TOES SURGERY PROC UNLISTED ??? 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 [...] 1.0 No results for input(s): PHART, PO2ART, JHQ8SRN, BEART in the last 15716 hours. Lab results smartLinks are not currently [...] Argueta MD Urology Resident 01/18/2023 3:20 AM E LINER documented in this encounter OR Notes * [...] Kenan Argueta MD - Resident - Assisting Psychology Instructor(s): none Anesthesia Type: general LMA Complications: none [...] in log * Kenan Argueta MD E LINER * Operative - Jose Oliver MD - [...] fashion. A timeout was then performed. A 26-Maori resectoscope was then used to enter her [...] discharge today. MD Jose Calderon MD JO/charu .[id number] .[id number] Doc ID: [id number] Voice Job ID: [id number] I was present for the entire procedure. Jose Oliver MD 01/19/2023 9:29 AM E LINER documented in this encounter Plan of Treatment Upcoming Encounters Date Type Department Care Team (Late st Contact Info) Description 01/19/2025 11:30 AM BRAKE LINER Procedure visit [facility] - Urology [address] [place] [address] [address] [place] [address] Jose Oliver MD [facility] [place] [phone] documented as of this encounter Goals Goal [...] POINT OF CARE Routine 01/18/2023 11:53 AM BRAKE LINER GLUCOSE - POINT OF CARE Routine 01/18/2023 10:19 AM BRAKE LINER PATHOLOGY TISSUE Routine 01/18/2023 9:18 AM BRAKE LINER Malignant neoplasm of urinary bladder, unspecified site (HCC) TRANSURETHRAL RESECTION BLADDER TUMOR (TURBT) 01/18/2023 9:12 AM BRAKE LINER Malignant neoplasm of urinary bladder, unspecified site (HCC) Special Needs Laser [place] stone confirmed ? Blue light laser / Reviewed 01/13 GLUCOSE - POINT OF CARE Routine 01/18/2023 8:13 AM BRAKE LINER documented in this encounter Results * (ABNORMAL) GLUCOSE - POINT OF CARE (01/18/2023 11:53 AM BRAKE LINER) Glucose WB/POC 204(H) 70 - 115 mg/dL 01/18/2023 11:54 AM BRAKE LINER [facility] Specimen Type Cap Fingerstick 2022 11:54 AM BRAKE LINER [facility] Blood BLOOD SPECIMEN / Unknown 01/18/2023 11:53 AM BRAKE LINER 01/18/2023 11:54 AM BRAKE LINER Jose Oliver MD LAB - POINT OF CAR E ORDERABLES [facility] [address] [place] [address], [facility] [phone] * (ABNORMAL) GLUCOSE - POINT OF CARE (01/18/2023 10:19 AM BRAKE LINER) Glucose WB/POC 121(H) 70 - 115 mg/dL 01/18/2023 11:55 AM BRAKE LINER [facility] Specimen Type Cap Fingerstick 2022 11:55 AM BRAKE LINER [facility] Blood BLOOD SPECIMEN / Unknown 01/18/2023 10:19 AM BRAKE LINER 01/18/2023 11:55 AM BRAKE LINER Jose Oliver MD LAB - POINT OF CAR E ORDERABLES Performing Organization Address [facility]/State/ZIP Co de Phone Number [address] [address], [facility] [phone] * PATHOLOGY TISSUE (01/18/2023 9:18 AM BRAKE LINER) Case Report Surgical Pathology Report ? Case: [id number] ? Authorizing Provider: ??Jose Oliver MD ?Collected: ? 01/18/2023 09:18 AM ? Ordering Location: ? [facility] ?Received: ?01/18/2023 10:11 AM ? Pathologist: ? Nicole Glaser MD ? Specimens: ?? A) - Bladder Biopsy, Left bladder neck ? B) - Bladder Biopsy Wall, Right posterior wall ? C) - Bladder Biopsy Dome, Left dome ? 01/21/2023 7:59 AM [facility] Final Diagnosis Bladder, left neck, [...] - Muscular propria present 01/21/2023 7:[address] [facility] Microscopic Description and Comment Sections of all biopsies demonstrate largely denuded urothelium. In parts A and C, there is focal cytologic atypia of the urothelium with nuclear enlargement but CK20 immunostain does not show full thickness staining in the areas of histologic concern to support a diagnosis of carcinoma in situ. 01/21/2023 7:[address] [facility] PATH[facility] Clinical History The patient is a 62-year-old woman with a history of high-grade T1 bladder carcinoma. Surveillance cystoscopy revealed shaggy papillary changes with erythema along the right dome and erythema around the left ureteral orifice. 01/21/2023 7:[address] [facility] PATH[facility] Gross Description The requisition [...] in cassette C1. DF 01/21/2023 7:[address] [facility] Disclaimer The performance characteristics of all immunohistochemical and indirect immunofluorescence stains (if any) cited in this report were determined by the Histopathology Laboratory of [facility]. Some of these tests were developed [...] the attending (teaching) pathologist. 01/21/2023 7:59 AM BRAKE LINER [facility] PATHOLOGY LAB Embedded Images 01/21/2023 7:59 AM BRAKE LINER [facility] PATHOLOG[facility] LAB Biopsy, Excision URINARY BLADDER BIOPSY SPECIMEN / Unknown 01/18/2023 9:18 AM BRAKE LINER 01/18/2023 10:11 AM BRAKE LINER Comment:Pre-op diagnosis: Malignant neoplasm of urinary bladder, unspecified site Biopsy, Excision URINARY BLADDER BIOPSY SPECIMEN / Unknown 01/18/2023 9:25 AM BRAKE LINER 01/18/2023 10:11 AM BRAKE LINER Comment:Pre-op diagnosis: Malignant neoplasm of urinary bladder, unspecified site Biopsy, Excision URINARY BLADDER BIOPSY SPECIMEN / Unknown 01/18/2023 9:38 AM BRAKE LINER 01/18/2023 10:11 AM BRAKE LINER Comment:Pre-op diagnosis: Malignant neoplasm of urinary bladder, unspecified site Jose Oliver MD LAB - PATHOLOGY/CY TOLOGY ORDERABLES Performing Organization Address City/State/RUST de Phone Number [facility] LAB [address] [phone] * (ABNORMAL) GLUCOSE - POINT OF CARE (01/18/2023 8:13 AM BRAKE LINER) Glucose WB/POC 170(H) 70 - 115 mg/dL 01/18/2023 8:15 AM [facility] Specimen Type Venous 01/18/2023 8:15 AM [facility] Blood BLOOD SPECIMEN / Unknown 01/18/2023 8:13 AM BRAKE LINER 01/18/2023 8:14 AM BRAKE LINER Jose Oliver MD LAB - POINT OF CAR E ORDERABLES [address] [address], [facility] [phone] documented in this encounter Visit Diagnoses Diagnosis [...] 1013, PACU $ Given 01/18/2023 10:13 AM BRAKE LINER 2.5 mg diphenhydrAMINE (Benadryl) injection 25 mg [...] MAR., PACU $ Given 01/18/2023 10:30 AM BRAKE LINER 25 mcg $ Given 01/18/2023 10:20 AM BRAKE LINER 25 mcg fentaNYL (PF) (Sublimaze) injection 50 [...] preparation, Pre-op $ Given 01/18/2023 8:10 AM BRAKE LINER 100 mg hydrALAZINE (Apresoline) injection 5 mg [...] 1014, PACU $ Given 01/18/2023 10:14 AM BRAKE LINER 0.5 mg labetalol (Normodyne; Trandate) injection 5 [...] Pre-op $ New Bag/Syringe 01/18/2023 8:12 AM BRAKE LINER 75 mL/hr lactated ringers infusion at 125 [...] the MAR. $ Given 01/18/2023 11:19 AM BRAKE LINER 1 tablet prochlorperazine (Compazine) injection 10 mg 10 mg, Intravenous, ONCE PRN, Nausea/Vomiting, 1 dose, Starting on Wed01/18/23 at 0959, Until Wed01/18/23 at 1311, First choice, PACU documented in this encounter Active and Recently Administered Medications Times are shown in BRAKE LINER. Scheduled Medication Order 01/16/2023 01/17/2023 01/18/2023 0.9% [...] Jacquelin Guillen RN - Comment: given by INTEGRATION SOFTWARE DEVELOPER) hydrALAZINE (Apresoline) injection 5 mg 5 mg, [...] PACU documented in this encounter Care Teams Explosive Operator Relationship Specialty Start Date End Date Neva Holden MD [address] [place] [phone] PCP - General 05/06/20 05/25/23 documented as of this encounter
--- OUTSIDE RECORDS SUMMARY | 2024-11-12 05:24 | XMS_ITS | Encounter Summary ---
Author Organization [facility] Address [address] [facility] [place] [place] [address] Care Team Providers Care Colored Leather Setter Name Role Phone Deisi Andrews MD Primary Care Provider [phone] Reason for Visit * Reason Comments Refill Request Encounter Details Date Type Department Care Team (Late st Contact Info) Description 07/25/2023 Refill [facility] [address] [facility] [address] [place] [address] Monica Quijano MD Refill Request [...] st Contact Info) Description 01/19/2025 11:30 AM FOREST FIREFIGHTER Procedure visit [facility] - Urology [address] [facility] [address] [place] [phone] Jose Oliver MD [address] [place] [address] documented as of this encounter Goals Goal [...] on filedocumented in this encounter Care Teams Colored Leather Setter Relationship Specialty Start Date End Date Deisi Andrews MD [address] [place] [address] [place] [address] PCP - General Family Medicine 05/26/23 10/26/24 documented as of this encounter
--- OUTSIDE RECORDS SUMMARY | 2024-11-12 05:24 | XMS_ITS | Encounter Summary ---
Author Organization [facility] Address [address] [facility] [place] [address] Care Team Providers Care Head Of Visual Merchandising Name Role Phone Neva Holden MD Primary Care Provider [phone] Reason for Visit * Auth/Cert Specialty Diagnoses / Procedures Referred By Nacho brooks Referred To Contact Diagnoses Diagnosis unknown Diagnosis unknown [R69] Procedures TRANSURETHRAL RESECTION BLADDER TUMOR (TURBT) URETEROSCOPY (FLEXIBLE OR RIGID) Referral ID Status Reason Start Date Expiration Date Visits Re quested Visits Authorized [id number] 1 1 Encounter Details Date Type Department Care Team (Late st Contact Info) Description 03/23/2022 7:34 AM CDT Anesthesia Event [facility] [address] [place] [address] Mary Hughes MD [address] [place] [phone] Wilfred Delgado, PAPER HANDLER-BODY SHOP FLOORPERSON [address] [place] [address] Anesthesia Record Procedure Summary Procedure Name Responsible [...] APRN-CRNA 03/23/22 0823 by Sandy, Wilfred B, PAPER HANDLER-BODY SHOP FLOORPERSON Procedural Site (Incision) 03/23/22; 0806; Perineum; 03/23/22; [...] procedural Anesthetic Plan was discussed with the BODY SHOP FLOORPERSON. BMI, Height, Weight Tobacco History Estimated body [...] Disorder Past Week at Unknown time ??? bigjclde-fnxdjgaod-eeprdjwv INSTILL 1 DROP INTO AFFECTED EYE(S) EVERY 3 TO 4 HOURS WHILE AWAKE Past Month at Unknown time ??? ftowzenk-bshiupqck-cf SHAKE LIQUID AND INSTILL 4 DROPS TO AFFECTED EAR THREE TIMES DAILY Past Month at Unknown time ??? ondansetron ondansetron HCl 8 mg tablet TAKE 1 TABLET BY MOUTH EVERY 8 HOURS NEEDED 03/22/2022 at am ??? pantoprazole EC Take 1 (one) tablet by mouth once daily Reasons: need follow up visit for further [id number] option 1 03/20/2022 at Unknown time ??? [...] List Diagnosis Date Noted ??? CAD in [place] artery 10/24/2020 Priority: Not Prioritized ??? PAD [...] Results: Recent Labs Base Name 03/23/22 0614 [id number] 194* SPECIMENTYPE Venous Recent Labs Component Name [...] this encounter Procedure Notes * Wilfred Delgado, PAPER HANDLER-BODY SHOP FLOORPERSON - 03/23/2022 7:46 AM CDTAssociated Order(s): ETT Placement Endotracheal Tube Placement: Patient Location: OR. Intubation Event Date/Time: 03/23/2022 7:40 AM Procedure: intubation (81276). Procedure Section: Sedation: under general anesthesia. Indications [...] 03/23/2022 Date of : 1960 Patient: Rody Zaiid Procedure(s): TRANSURETHRAL RESECTION BLADDER TUMOR (TURBT) URETEROSCOPY [...] 03/23/22; Time: 0740; Placed By: Wilfred Delgado APRN-BODY SHOP FLOORPERSON; Vent: easy with oral airway mask; Induction: [...] 01/19/2025 11:30 AM MANAGER HOSPITALITY Procedure visit [facility] - Urology [address] [place] [address] [address] [place] [address] Jose Oliver MD [facility] [place] [address] documented as of this encounter Goals Goal [...] Event Date/Time: ??03/23/2022 7:40 AM Procedure: intubation (60553). Procedure Section: ?? Sedation: under general anesthesia. [...] mg documented in this encounter Care Teams Head Of Visual Merchandising Relationship Specialty Start Date End Date Neva Holden MD [address] [place] [phone] PCP - General 05/06/20 05/25/23 documented as of this encounter
--- OUTSIDE RECORDS SUMMARY | 2024-11-12 05:24 | XMS_ITS | Encounter Summary ---
Author Organization [facility] Address [address] [facility] [place] [address] Care Team Providers Care Shingle Inspector Name Role Phone Neva Holden MD Primary Care Provider [phone] Reason for Visit * Auth/Cert Specialty Diagnoses / Procedures Referred By Nacho t Referred To Contact Diagnoses Diagnosis unknown Diagnosis unknown [R69] Procedures TRANSURETHRAL RESECTION BLADDER TUMOR (TURBT) URETEROSCOPY (FLEXIBLE OR RIGID) Referral ID Status Reason Start Date Expiration Date Visits Re quested Visits Authorized [id number] 1 1 Encounter Details Date Type Department Care Team (Latest Contact Info) Description 03/23/2022 5:15 AM CDT - 03/23/2022 10:42 AM CDT Hospital Encounter [facility] [address] [place] [address] Jose Oliver MD [address] [place] [phone] Surgery General Discharge Disposition: Home or Self [...] surgery or the recovery process, please contact [facility] at [phone] during regular business hours. On weekends or in the evening, please contact [facility] at [phone] and ask for whoever is greenstone polisher operator for Dr. Oliver/ Urology. In addition, please [...] ge 2 moderate COPD by GOLD classification ([facility]) Inhale 2 (two) puffs by mouth every [...] tablet 4 12/08/2021 vitamin D, ergocalciferol, (DRISDOL) 79618 UNITS capsule Take 1 (one) capsule by [...] ge 2 moderate COPD by GOLD classification ([facility]) Inhale 2 (two) puffs by mouth 2 [...] Disorder, Panic Disorder 45 tablet 12/31/2021 03/26/2022 kggvyomb-fcvywhpgk-khf ameth (MAXITROL) ophthalmic suspension INSTILL 1 DROP INTO AFFECTED EYE(S) EVERY 3 TO 4 HOURS WHILE AWAKE 01/06/2022 01/11/2023 icejyrle-pjmossiqe-rz (CORTISPORIN) 3.5-22963-8 otic suspension SHAKE LIQUID AND INSTILL 4 DROPS TO AFFECTED EAR THREE TIMES DAILY 01/06/2022 01/11/2023 nicotine (NICODERM CQ) 21 MG/24HR patch APPLY 1 PATCH TOPICALLY ONCE DAILY 01/16/2022 10/22/2023 ondansetron (ZOFRAN) 8 MG tablet 1 (one) tablet every 6 hours as needed 11/22/2023 pantoprazole EC (PROTONIX) 40 MG tabletIndications:need follow up visit for further [id number] option 1 Take 1 (one) tablet by mouth once daily Reasons: need follow up visit for further [id number] option 1 90 tablet 3 01/23/2022 06/15/2024 [...] pT1 vs pT2. Patient was referred to [facility] for further evaluation/management. Internal review [...] 2014 ??? HX TUBAL LIGATION 1989 ??? [place] FOOT/TOES SURGERY PROC UNLISTED ??? Tympanostomy 2013 [...] Disorder 12/31/21 03/31/22 Yes Kathleen Stevenson MD embgyfgp-gpzcynxqi-lygjyajl (MAXITROL) ophthalmic suspension INSTILL 1 DROP INTO AFFECTED EYE(S) EVERY 3 TO 4 HOURS WHILE AWAKE 01/06/22 Ramírez Baeza MD ddvyuuyp-svglgkqqv-mr (CORTISPORIN) 3.5-18411-6 otic suspension SHAKE LIQUID AND INSTILL 4 [...] Reasons: need follow up visit for further [id number] option 1 01/23/22 Yes Sebastian Lombardi MD [...] Bora Ferreira MD vitamin D, ergocalciferol, (DRISDOL) 63707 UNITS capsule Take 50,000 Units by mouth [...] Role: * Jose Oliver MD - Primary Vocational School Teacher(s): Kofi Martin MD Anesthesia Type: general ETT [...] pT1 vs pT2. Patient was referred to [facility] for further evaluation/management. Internal review of pathology slides determined patient had high grade pT1 urothelial cell carcinoma. However there also appears to be left distal ureteral involvement with obstruction requiring stent. The patient presents today for operative intervention. After reviewing the various risks benefits and alternatives, patient provided informed [facility] DESCRIPTION OF PROCEDURE: Patient was brought [...] st Contact Info) Description 01/19/2025 11:30 AM LABORER GENERAL Procedure visit [facility] - Urology [address] [place] [address] [address] [place] [address] Jose Oliver MD [facility] [place] [address] documented as of this encounter Goals Goal [...] Routine 03/23/2022 8:11 AM CDT Diagnosis unknown [place] CYSTO/URETERO/PYELOSCO PY, DX 03/23/2022 6:40 AM CDT [...] - 106 mg/dL 03/23/2022 8:48 AM CDT [facility] Specimen Type Cap Fingerstick 2021 8:48 AM CDT [facility] Blood BLOOD SPECIMEN / Unknown 03/23/2022 8:38 AM CDT 03/23/2022 8:48 AM CDT Jose Oliver MD LAB - POINT OF CAR E ORDERABLES Performing Organization Address City/State/[facility] Co de Phone Number [facility] [address] [place] [address] * PATHOLOGY TISSUE EXAM (STL) (03/23/2022 8:11 AM CDT) Case Report Surgical Pathology Report ? Case: [id number] ? Authorizing Provider: ??Jose Oliver MD ?Collected: ? 03/23/2022 08:11 AM ? Ordering Location: ? [facility] ? Received: ?03/23/2022 08:51 AM ? Pathologist: ? Kenan Maria MD ? Specimen: ?Bladder Mass, BLADDER TUMOR ? 03/24/2022 4:30 PM CDT [facility] Final Diagnosis Urinary bladder, transurethral resection of bladder tumor: 1. Negative for malignancy 2. Acute and chronic inflammation, fibrosis, and dystrophic calcification consistent with biopsy site changes 3. Detrusor muscle present, negative for tumor invasion 03/24/2022 4:30 PM T [facility] Clinical History Bladder mass 03/24/2022 4:30 PM CDT [facility] Gross Description The requisition and specimen are identified with patient's name and date of . Received in formalin, specimen A, bladder tumor aggregate of hawthorne-pink hawthorne soft tissues, 1.5 x 1.5 x 0.3 cm. Entirely submitted in cassette A1. LJ 03/24/2022 4:30 PM CDT [facility] Microscopic Description Immunostain for pancytokeratin (control appropriate) is negative for tumor. Residual surface urothelium has bank worker maturation. 03/24/2022 4:30 PM CDT [facility] Disclaimer All histochemical and/or immunohistochemical results are interpreted with controls that demonstrate appropriate staining reactions before reporting results. Note on use of immunocytochemistry reagents: This test was developed and its performance characteristic determined by [facility], Department of Laboratory Medicine. It has [...] interpreted with caution. 03/24/2022 4:30 PM CDT [facility] Embedded Images 03/24/2022 4:30 PM CDT [facility] Pathology/Cytolo gy MASS OF URINARY BLADDER / Unknown 03/23/2022 8:11 AM CDT 03/23/2022 8:51 AM CDT Comment:Pre-op diagnosis: Diagnosis unknown [R69] Jose Oliver MD LAB - PATHOLOGY/CY TOLOGY ORDERABLES Performing Organization Address [facility] Co de Phone Number [facility] [address] [place] [phone] * (ABNORMAL) GLUCOSE - POINT OF CARE (03/23/2022 6:14 AM CDT) Glucose WB/POC 194(H) 70 - 106 mg/dL 03/23/2022 6:20 AM CDT [facility] Specimen Type Venous 03/23/2022 6:20 AM CDT [facility] Blood BLOOD SPECIMEN / Unknown 03/23/2022 6:14 AM CDT 03/23/2022 6:20 AM CDT Jose Oliver MD LAB - POINT OF CAR E ORDERABLES Performing Organization Address [facility] de Phone Number [facility] [address] [place] [phone] documented in this encounter Visit Diagnoses Diagnosis [...] ($ Given - Prov ider: Wilfred Delgado, FLATWORK FEEDER-BREAKER UNIT ASSEMBLER) ibuprofen (Motrin) tablet 600 mg (COMPLETED) 600 [...] (Anesthesia Volume Adjustment - Provider: Wilfred Delgado APRN-BREAKER UNIT ASSEMBLER) lactated ringers infusion at 125 mL/hr, Intravenous, [...] Pre-op documented in this encounter Care Teams Shingle Inspector Relationship Specialty Start Date End Date Neva Holden MD [address] [place] [phone] PCP - General 05/06/20 05/25/23 documented as of this encounter
--- OUTSIDE RECORDS SUMMARY | 2024-11-12 05:24 | XMS_ITS | Encounter Summary ---
Author Organization [facility] Address [address] [facility] [place] [address] Care Team Providers Care Expressive Therapist Name Role Phone Neva Holden MD Primary Care Provider [phone] Encounter Details Date Type Department Care Team (Late Contact Info) Description 01/07/2023 Orders Only [facility] [address] [place] [address] Rhonda Lozada RN Social History Tobacco Use [...] 01/07/2023 9:39 AM CST Opened in error NNA 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 documented in this encounter Plan of Treatment Upcoming Encounters Date Type Department Care Team (Late Contact Info) Description 01/19/2025 11:30 AM ANTENNA 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 Procedure visit [facility] - Urology [address] [place] [address] [address] [place] [address] Jose Oliver MD [address] [place] [address] documented as of this encounter Goals Goal [...] on filedocumented in this encounter Care Teams Expressive Therapist Relationship Specialty Start Date End Date Neva Holden MD [address] [place] [phone] PCP - General 05/06/20 05/25/23 documented as of this encounter
--- OUTSIDE RECORDS SUMMARY | 2024-11-12 05:24 | XMS_ITS | Encounter Summary ---
Author Organization [facility] Address [address] [facility] [place] [address] Care Team Providers Care Animal Eviscerator Name Role Phone Neva Holden MD Primary Care Provider [phone] Reason for Referral * Medication Prior Authorization - Closed Specialty Diagnoses / Procedures Referred By Contac t Referred To Contact Monica Quijano MD Referral ID Status Reason Start Date Expiration Date Visits Re quested Visits Authorized Closed 1 1 Reason for Visit * Reason Onset Date Comments Follow-up 05/29/2022 Repatha-lipids Encounter Details Date Type Department Care Team ([facility] Contact Info) Description 05/29/2022 Telephone [facility] [address] [facility] [address] [place] [address] Adrianna Adair RN Follow-up (Repatha-lipids) Social History [...] CDT Has appt 06/05 Received Repatha from [facility]. States that she had a lipid panel completed in April. Will bring them to visit on Wednesday. * Telephone Encounter - Adrianna Adair RN - 05/29/2022 10:00 AM CDT Called and spoke with patient, she states that she has not been able to get Repatha. She is wantingit sent to both [facility] and [facility]. She states that she will call the pharmacies to check on status and will return call with any issues. She states that she had lipid panel completed a couple of weeks ago-asked that I call [phone] to get these results. Called number above-medical records, left message requesting labs for patient. documented in this encounter Plan of Treatment Upcoming Encounters Date Type Department Care Team (Late st Contact Info) Description 01/19/2025 11:30 AM PATTERNMAKER BENCH Procedure visit [facility] - Urology [address] [place] [address] [address] [place] [address] Jose Oliver MD [facility] [place] [phone] documented as of this encounter Goals Goal [...] filedocumented in this encounter Care Teams Animal Eviscerator Relationship Specialty Start Date End Date Neva Holden MD [address] [place] [phone] PCP - General 05/06/20 05/25/23 documented as of this encounter
--- OUTSIDE RECORDS SUMMARY | 2024-11-12 05:24 | XMS_ITS | Encounter Summary ---
Author Organization [facility] Address [address] [facility] [place] [address] Care Team Providers Care Polysomnographer Name Role Phone Neva Holden MD Primary Care Provider [phone] Reason for Visit * Reason Comments MEDICATION REFILL Encounter Details Date Type Department Care Team (Late Contact Info) Description 01/23/2022 Refill [facility] [address] [place] [address] [place] [phone] Sebastian Lombardi MD [address] [phone] MEDICATION REFILL Social History Tobacco Use Types [...] COVID-19? No / Unsure 12/31/2021 8:43 AM MAINTENANCE SUPERVISOR ELECTRICAL documented as of this encounter Plan of Treatment Upcoming Encounters Date Type Department Care Team (Late Contact Info) Description 01/19/2025 11:30 AM MAINTENANCE SUPERVISOR ELECTRICAL Procedure visit [facility]rology [address] [place] [address] [address] [place] [address] Jose Oliver MD [address] [place] [address] documented as of this encounter Goals Goal [...] reflux documented in this encounter Care Teams Polysomnographer Relationship Specialty Start Date End Date Neva Holden MD [address] [place] [phone] PCP - General 05/06/20 05/25/23 documented as of this encounter
--- OUTSIDE RECORDS SUMMARY | 2024-11-12 05:24 | XMS_ITS | Encounter Summary ---
Author Organization [facility] Address [address] [facility] [address] Care Team Providers Care Director Microbiology Name Role Phone Neva Holden MD Primary Care Provider [phone] Encounter Details Date Type Department Care Team (Late Contact Info) Description 11/23/2021 Orders Only [facility], Critical Care [facility] [address] [facility], [place] [phone] Hollis Mccall MD [address] [facility] 2L DIV OF PULMONARY/[place] [address] Social History Tobacco Use Types [...] (Late Contact Info) Description 01/19/2025 11:30 AM APPLICATOR SPRAYER Procedure visit [facility] Urology [address] [place] [address] [address] [place] [phone] Jose Oliver MD [address] [facility] [place] [address] documented as of this encounter [...] filedocumented in this encounter Care Teams Director Microbiology Relationship Specialty Start Date End Date Neva Holden MD [address] [place] [phone] PCP - General 05/06/20 05/25/23 documented as of this encounter
--- OUTSIDE RECORDS SUMMARY | 2024-11-12 05:24 | XMS_ITS | Encounter Summary ---
Author Organization [facility] Address [address] [facility] [place] [address] Care Team Providers Care Sample Case Porter Name Role Phone Neva Holden MD Primary Care Provider [phone] Reason for Visit * Reason Onset Date Comments Surgery Scheduling 12/15/2022 Encounter Details Date Type Department Care Team (Late st Contact Info) Description 12/15/2022 Telephone [facility] [address] [place] [address] Jose Oliver MD [address] [place] [phone] Surgery Scheduling Social History Tobacco Use Types [...] return call. Virgen Piña 12/15/2022 12:49 PM STARS documented in this encounter Plan of Treatment Upcoming Encounters Date Type Department Care Team (Late st Contact Info) Description 01/19/2025 11:30 AM RN STARS Procedure visit [facility] [address] [place] [address] Rd [address] [place] [address] Jose Oliver MD [address] [facility] [address] [place]OLOGIC [place] [address] documented as of this encounter Goals Goal [...] on filedocumented in this encounter Care Teams Sample Case Porter Relationship Specialty Start Date End Date Neva Holden MD [address] [place] [phone] PCP - General 05/06/20 05/25/23 documented as of this encounter
--- OUTSIDE RECORDS SUMMARY | 2024-11-12 05:24 | XMS_ITS | Encounter Summary ---
Author Organization [facility] Address [address] [facility] [place] [address] Care Team Providers Care Electronic Equipment Repairmen Name Role Phone Neva Holden MD Primary Care Provider [phone] Reason for Visit * Reason Onset Date Comments Reschedule Appointment 03/15/2023 Called rina scruggs to informed her that her previous appt was scheduled too early and r/s for 04/21/2023 at 2:30pm. Appt time was changed to 1 pm. Encounter Details Date Type Department Care Team (Late st Contact Info) Description 03/15/2023 Telephone [facility] [address] [place] [address] [address] [place] [phone] Jose Oliver MD [address] [place] [phone] Reschedule Appointment (Called patient to informed her [...] Contact Info) Description 01/19/2025 11:30 AM DATA CONTROL CLERK SUPERVISOR Procedure visit [facility] [address] [place] [address] [address] [place] [address] Jose Oliver MD [address] [place] [address] documented as of this encounter Goals Goal [...] on filedocumented in this encounter Care Teams Electronic Equipment Repairmen Relationship Specialty Start Date End Date Neva Holden MD [address] [place] [phone] PCP - General 05/06/20 05/25/23 documented as of this encounter
--- OUTSIDE RECORDS SUMMARY | 2024-11-12 05:24 | XMS_ITS | Encounter Summary ---
Author Organization [facility] Address [address] [place] [address] Care Team Providers Care Light Cleaner Name Role Phone Neva Holden MD Primary Care Provider [phone] Encounter Details Date Type Department Care Team (Late Contact Info) Description 02/27/2022 Orders Only [facility] General Surgery [address] [place] [address] Jose Oliver MD [address] [place] [phone] Malignant neoplasm of urinary bladder, unspecified site [...] (Late Contact Info) Description 01/19/2025 11:30 AM CURED MEAT PACKING SUPERVISOR Procedure visit [facility] - Urology [address] [place] [address] [address] [place] [phone] Jose Oliver MD [address] [place] [address] documented as of this encounter Goals Goal [...] specific gravity. Appearance TURBID(A) CLEAR [facility] Specific Union UA 1.027 1.001 - 1.035 [facility] pH UA < OR = 5.0 5.0 - 8.0 [facility] Glucose UA TRACE(A) NEGATIVE [facility] Bilirubin UA NEGATIVE NEGATIVE [facility] Ketone UA NEGATIVE NEGATIVE [facility] Blood UA 3+(A) NEGATIVE [facility] Protein UA 2+(A) NEGATIVE [facility] Nitrite UA NEGATIVE NEGATIVE [facility] Leukocyte UA 2+(A) NEGATIVE [facility] Comment: Test Performed at: [facility] [address] [place], [place] ??[address] JESSICA MANLEY DO,MPH Urine URINE SPECIMEN OBTAINED BY CLEAN CATCH PROCEDURE / Unknown 03/11/2022 10:45 AM CDT 03/11/2022 10:46 AM CDT Jose Oliver MD LAB - URINALYSIS O RDERABLES Performing Organization Address [facility] de Phone Number [address] [address] * CULTURE URINE (03/11/2022 10:45 AM CDT) Culture [facility] Comment: ??CULTURE, URINE, ROUTINE ?Micro Number: ?[id number] ??Test Status: ? Final ??Specimen Source: ?? Urine ??Specimen Quality: ??Adequate ??Result: ?No Growth Test Performed at: [facility] ??[phone] GISELE JUSTICE MD Urine URINE SPECIMEN OBTAINED BY CLEAN CATCH PROCEDURE / Unknown 03/11/2022 10:45 AM CDT 03/11/2022 10:46 AM CDT Jose Oliver MD LAB - MICROBIOLOGY ORDERABLES Performing Organization Address [facility] de Phone Number [address] [address] * (ABNORMAL) BASIC METABOLIC PANEL (CALCIUM TOTAL) [...] approximately 13% higher for people identified as -Panamanian. eGFR by MDRD 50(L) > OR = [...] 10.4 mg/dL [facility] Comment: Test Performed at: [facility] [address] [facility], [place] ??[phone] JESSICA MANLEY DO,MPH Blood BLOOD SPECIMEN / Unknown 03/11/2022 10:45 AM CDT 03/11/2022 10:46 AM CDT Jose Oliver MD LAB - CHEMISTRY OR DERABLES Performing Organization Address City/State/[facility] Co de Phone Number [facility] [address] [place] [address] * (ABNORMAL) CBC WITH DIFFERENTIAL (03/11/2022 10:45 [...] 0.7 % [facility] Comment: Test Performed at: [facility] [address] [place], [place] ??[address] JESSICA MANLEY DO,MPH Blood BLOOD SPECIMEN / Unknown 03/11/2022 10:45 AM CDT 03/11/2022 10:46 AM CDT Jose Oliver MD LAB - HEMATOLOGY O RDERABLES Performing Organization Address City/State/[facility] Co de Phone Number [employer] [address] [place] [address] documented in this encounter Visit Diagnoses Diagnosis Malignant neoplasm of urinary bladder, unspecified site (HCC)- Primary documented in this encounter Care Teams Light Cleaner Relationship Specialty Start Date End Date Neva Holden MD [address] [place] [phone] PCP - General 05/06/20 05/25/23 documented as of this encounter
--- OUTSIDE RECORDS SUMMARY | 2024-11-12 05:24 | XMS_ITS | Encounter Summary ---
Author Organization [facility] Address [address] [facility] [place] [address] Care Team Providers Care Testing Coordinator Name Role Phone Neva Holden MD Primary Care Provider Reason for Visit * Reason Onset Date Comments Medication Issue 11/25/2021 Encounter Details Date Type Department Care Team (Late st Contact Info) Description 11/25/2021 Telephone [facility] [address] [facility] [address] [place] [address] Adrianna Adair senior biostatistician Issue Social History Tobacco Use Types Packs/Day [...] COVID-19? No / Unsure 12/02/2021 9:22 AM COPY MESSENGER documented as of this encounter Miscellaneous Notes * Telephone Encounter - Adrianna Adair RN - 12/03/2021 11:33 AM CST Patient returned call and left message, states that insurance is needing another prior authorization. Called pharmacy and they state that prescription needs sent to specialty pharmacy in [facility] Sent prescription to preferred pharmacy. Returned call to patient, informed her of prescription being sent to [place] pharmacy. She states that she will call pharmacy to make sure they are able to fill prescription. Informed her to call with any quesitons MESSENGER * Telephone Encounter - Adrianna Adair RN [...] work on contacting insurance and pharmacy today. MESSENGER * Telephone Encounter - Chloé Jensen RN - 11/26/2021 11:28 AM COPY MESSENGER Pt called and left vm message-returning your call-script for repatha needs to go to speciality pharmacy Called and spoke to pt-she is aware that she needs to let this office know what specialty pharmacy she is required to use ( as per Adrianna message form yesterday) Pt will call insurance and will call back with info regarding mail order pharmacy MESSENGER * Telephone Encounter - Adrianna Adair RN - 11/25/2021 1:26 PM CST Patient called and left a message stating that she is needing a new prescription for Repatha sent to [facility] Attempted to reach patient, mailbox is full-unable to leave message. [facility] and they state that due to her insurance, they are requiring prescription to go through a specialty pharmacy. States that patient needs to call insurance to set up with specialty pharmacy for mailing prescription to patient, MESSENGER documented in this encounter Plan of Treatment Upcoming Encounters Date Type Department Care Team (Late st Contact Info) Description 01/19/2025 11:30 AM COPY MESSENGER Procedure visit [facility] [address] [place] [address] Jose Oliver MD [address] [place] [address] documented as of this encounter Goals Goal [...] on filedocumented in this encounter Care Teams Testing Coordinator Relationship Specialty Start Date End Date Neva Holden MD [address] [place] [phone] PCP - General 05/06/20 05/25/23 documented as of this encounter
--- OUTSIDE RECORDS SUMMARY | 2024-11-12 05:24 | XMS_ITS | Encounter Summary ---
Author Organization [facility] Address [address] [facility] [place] [address] Care Team Providers Care Director Safety Council Name Role Phone Neva Holden MD Primary Care Provider [phone] Reason for Visit * Reason Onset Date Comments Surgery Scheduling 12/18/2022 Encounter Details Date Type Department Care Team (Late st Contact Info) Description 12/18/2022 Telephone [facility] [address] [place] [address] Jose Oliver MD [address] [place] [phone] Surgery Scheduling Social History Tobacco Use Types [...] me back Virgen Piña 12/18/2022 9:36 AM NG INSTRUCTOR documented in this encounter Plan of Treatment Upcoming Encounters Date Type Department Care Team (Late st Contact Info) Description 01/19/2025 11:30 AM BOXING INSTRUCTOR Procedure visit [facility] [address] [facility] [address] [place] [address] Jose Oliver MD [address] [place] [address] documented as of this encounter Goals Goal [...] filedocumented in this encounter Care Teams Director Safety Council Relationship Specialty Start Date End Date Neva Holden MD [address] [place] [phone] PCP - General 05/06/20 05/25/23 documented as of this encounter
--- OUTSIDE RECORDS SUMMARY | 2024-11-12 05:24 | XMS_ITS | Encounter Summary ---
Author Organization [facility] Address [address] [facility] [place] [address] Care Team Providers Care Dye Range Feeder Name Role Phone Neva Holden MD Primary Care Provider [phone] Encounter Details Date Type Department Care Team (Latest Contact Info) Description 10/06/2021 3:20 PM PEDIATRIC DERMATOLOGIST - 10/06/2021 11:59 PM PEDIATRIC DERMATOLOGIST Hospital Encounter [facility] OP DRAW STATION [address] [place] [phone] Damian Hager MD [address] DIVISION [place] [phone] Discharge Disposition: Home or Self Care Social [...] COVID-19? No / Unsure 10/06/2021 12:48 PM PEDIATRIC DERMATOLOGIST documented as of this encounter Medications at [...] evening meal 12/27/2016 vitamin D, ergocalciferol, (DRISDOL) 13714 UNITS capsule Take 1 (one) capsule by [...] Contact Info) Description 01/19/2025 11:30 AM PEDIATRIC DERMATOLOGIST Procedure visit [facility] - Urology [address] [place] [address] [address] [place] [phone] Jose Oliver MD [address] OF [place] [phone] documented as of this encounter Goals Goal [...] DRUG SCREEN IMMUNOASSAY Routine 10/06/2021 4:17 PM PEDIATRIC DERMATOLOGIST MDD (recurrent major depressive disorder) in remission (HCC) TSH REFLEX FREE T4 Routine 10/06/2021 4: 00 PM PEDIATRIC DERMATOLOGIST MDD (recurrent major depressive disorder) in remission (HCC) HEMOGLOBIN A1C Routine 10/06/2021 4:00 PM PEDIATRIC DERMATOLOGIST MDD (recurrent major depressive disorder) in remission (HCC) VITAMIN D 25-HYDROXY Routine 10/06/2021 4:00 PM PEDIATRIC DERMATOLOGIST MDD (recurrent major depressive disorder) in remission (HCC) CBC W AUTO DIFFERENTIAL Routine 10/06/2021 4:00 PM PEDIATRIC DERMATOLOGIST MDD (recurrent major depressive disorder) in remission (HCC) COMPREHENSIVE METABOLIC PANEL Routine 10/06/2021 4:00 PM [facility] MDD (recurrent major depressive disorder) in remission (HCC) documented in this encounter Results * (ABNORMAL) DRUG SCREEN TOX URINE PANEL (IN HOUSE) (10/06/2021 4:17 PM [facility]) Amphetamines Screen Urine Negative Negative : < [...] Unknown Collection / Unknown 10/06/2021 4:17 PM PEDIATRIC DERMATOLOGIST 10/06/2021 4:34 PM [facility] - 10/06/2021 5:04 PM PEDIATRIC DERMATOLOGIST The Urine Toxicology Screening Panel does not screen for Propoxyphene, Meprobamate, Carisoprodol, Trazodone, hzrq-tiy-heqgnma medications and/or volatiles (Acetone, Isopropanol, Methanol or Ethylene Glycol). Ethanol, Salicylate, Acetaminophen, Tricyclic Antidepressants and several therapeutic drugs may be individually assayed in serum or plasma specimen. Toxicology testing by the [facility] is an aid to medical diagnosis and treatment of patients. No documented chain of custody was maintained. Results are intended to be used for clinical purposes only. ? Nicole Singletary DO LAB - URINE CHEMISTR Y ORDERABLES Performing Organization Address [facility]/State/[facility] Co de Phone Number [facility] [address] [place] [address], [facility] [phone] * (ABNORMAL) HEMOGLOBIN A1C (10/06/2021 4:00 PM [facility]) Hemoglobin A1c 7.9(H) 4.4 - 6.3 % 10/07/2021 10:27 AM [facility] Estimated Average Glucose 180 mg/dL 10/07/2021 10:27 AM [facility] Comment: HbA1c Interpretation: Treatment target values recommended by ADA and other clinical organizations should be used to evaluate metabolic control in patients. Treatment Target Values: Normal : < 5.7% Pre-diabetes: 5.7-6.4% Diabetes: Equal to or greater than 6.5% Reference: [place] [employer] Standards of Care in Diabetes -2014 In patients 70 years and older consider HbA1c target range of 7.0-7.5% Reference: ??Diabetes Mellitus in Older People: Position Statement on behalf of the International Association of Gerontology and Geriatrics (IAGG), the Diabetes Working Green Party for Older People (EDWPOP), and the International Task Force of Experts in Diabetes. ??Montez Rosas et al. J [place] Medical Directors Association. 2012 Test results diagnostic of diabetes should be repeated for confirmation. The Sebia Capillary 2 assay for the measurement of HbA1c is a National Glycohemoglobin Standardization Program (NGSP)certified method. Blood BLOOD SPECIMEN / Unknown Lab Venipuncture / Unknown 10/06/2021 4:00 PM PEDIATRIC DERMATOLOGIST 10/06/2021 4:34 PM PEDIATRIC DERMATOLOGIST Nicole Singletary DO LAB - CHEMISTRY BASSAM CONTRERAS Performing Organization Address City/State/[facility] Co de Phone Number [facility] [address] [place] [phone], [facility] [phone] * VITAMIN D 25-HYDROXY (10/06/2021 4:00 PM PEDIATRIC DERMATOLOGIST) [facility] Vitamin D, 25 Hydroxy 30.0 30.0 - 80.0 ng/mL 10/06/2021 5:17 PM PEDIATRIC DERMATOLOGIST [facility] Comment: The recommendations for 25-Hydroxy Vitamin [...] Lab Venipuncture / Unknown 10/06/2021 4:00 PM PEDIATRIC DERMATOLOGIST 10/06/2021 4:34 PM PEDIATRIC DERMATOLOGIST Nicole Singletary DO LAB - CHEMISTRY BASSAM CONTRERAS Performing Organization Address [facility]/ZIP Co de Phone Number [facility] [address] [place] [address], [facility] [phone] * (ABNORMAL) COMPREHENSIVE METABOLIC PANEL (10/06/2021 4:00 PM PEDIATRIC DERMATOLOGIST) BUN 18 7 - 26 mg/dL 10/06/2021 [...] Lab Venipuncture / Unknown 10/06/2021 4:00 PM PEDIATRIC DERMATOLOGIST 10/06/2021 4:34 PM PEDIATRIC DERMATOLOGIST Nicole Singletary DO LAB - CHEMISTRY JEROMEE BEN Performing Organization Address City/[facility] Co de Phone Number [address] [phone] [phone] * CBC WITH DIFFERENTIAL (10/06/2021 4:00 PM PEDIATRIC DERMATOLOGIST) WBC 10.2 3.5 - 10.5 10? 3 [...] Lab Venipuncture / Unknown 10/06/2021 4:00 PM PEDIATRIC DERMATOLOGIST 10/06/2021 4:34 PM PEDIATRIC DERMATOLOGIST Nicole Singletary DO LAB - HEMATOLOGY ORD ERABLES Performing Organization Address City/[facility]/ZIP Co de Phone Number [facility] [address] [place] [address], [facility] [phone] * TSH REFLEX FREE T4 (10/06/2021 4:00 PM PEDIATRIC DERMATOLOGIST) TSH 2.406 0.350 - 4.940 uIU/mL 10/06/2021 5:17 PM PEDIATRIC DERMATOLOGIST [facility] Blood BLOOD SPECIMEN / Unknown Lab Venipuncture / Unknown 10/06/2021 4:00 PM PEDIATRIC DERMATOLOGIST 10/06/2021 4:34 PM PEDIATRIC DERMATOLOGIST Nicole Singletary DO LAB - CHEMISTRY ORDE RABLES Performing Organization Address City/[facility]/ZIP Co de Phone Number [address] [address], [facility] [phone] documented in this encounter Visit Diagnoses Diagnosis MDD (recurrent major depressive disorder) in remission (HCC)- Primary Major depressive disorder, recurrent episode, in partial or unspecified remission documented in this encounter Care Teams Dye Range Feeder Relationship Specialty Start Date End Date Neva Holden MD [address] [place] [phone] PCP - General 05/06/20 05/25/23 documented as of this encounter
--- OUTSIDE RECORDS SUMMARY | 2024-11-12 05:24 | XMS_ITS | Encounter Summary ---
Author Organization [facility] Address [address] [facility] [place] [address] Care Team Providers Care Marketing Support Assistant Name Role Phone Deisi Andrews MD Primary Care Provider [phone] Reason for Referral * Radiology Services (Routine) - Closed Specialty Diagnoses / Procedures Referred By Nacho brooks Referred To Contact CT Scan Diagnoses Malignant neoplasm of urinary bladder, unspecified site (HCC) Procedures CT UROGRAM Jose Oliver MD [address] [facility] [address] [place] [address] Referral ID Status Reason Start Date Expiration Date Visits Re quested Visits Authorized [id number] Closed 08/26/2023 08/25/2024 1 1 Reason for Visit * Reason Comments Cystoscopy Bladder Cancer Encounter Details Date Type Department Care Team (Late st Contact Info) Description 05/26/2023 1:00 PM CDT Procedure visit [facility] - Urology [address] [place] [address] [address] [place] [phone] Jose Oliver MD [address] [facility] [address] [place] [address] Malignant neoplasm of urinary bladder, [...] CT PRIOR TO YOUR 09/01 APPOINTMENT WITH [facility] [phone] documented in this encounter Procedure Notes * Cisco Portillo MD - 05/26/2023 12:51 PM CDTProcedure(s): [place] CYSTOURETHROSCOPY Pre-Procedure Diagnose(s): Malignant neoplasm of urinary [...] Contact Info) Description 01/19/2025 11:30 AM BUILDING CONSTRUCTION PROFESSOR Procedure visit [facility] - Urology [address] [facility] [address] [place] [address] Jose Oliver MD [address] [place] [address] documented as of this encounter Goals Goal [...] Name Priority Date/Time Associated Diagnosis Comments CYTOLOGY NON-MATH AND SCIENCE INSTRUCTOR PANEL Routine 06/02/2023 12:00 PM CDT Malignant neoplasm of urinary bladder, unspecified site (HCC) URINALYSIS AUTO - POINT OF CARE (AMB) [facility] Routine 05/26/2023 1:16 PM CDT Malignant neoplasm of urinary bladder, unspecified site (HCC) documented in this encounter Results * CT UROGRAM (10/22/2023 10:10 AM BUILDING CONSTRUCTION PROFESSOR) Anatomical Region Laterality Modality Abdomen, Pelvis Computed Tomogra phy 10/22/2023 10:3 5 AM BUILDING CONSTRUCTION PROFESSOR Impressions 10/22/2023 10:45 AM BUILDING CONSTRUCTION PROFESSOR IMPRESSION: 1. An infiltrative bladder mass on [...] 10/22/2023 10:45 AM Narrative 10/22/2023 10:45 AM BUILDING CONSTRUCTION PROFESSOR PROCEDURE: ??CT UROGRAM DATE/TIME OF EXAM: ??10/22/2023 [...] upper quadrant and adjacent to the spleen [id number] mm in maximum dimension. The adrenal glands, [...] Jose Oliver MD CT ORDERABLES * CYTOLOGY NON-MATH AND SCIENCE INSTRUCTOR PANEL (06/02/2023 12:00 PM CDT) Clinical Information [facility] Comment: Malignant neoplasm of urinary bladder, unspecified site Pathologist [facility] Comment: Elbert Chawla M.D., Board Certified in Anatomic Pathology and Clinical Pathology [phone] (electronic signature) Report Notes [facility] Comment: Sears portions of this case have been reviewed by one or more pathologists. Test Performed at: [facility] [address] ??[phone] TERE KO MD Pathology/Cytolog y 05/29/2023 1:44 AM CDT Jose Oliver MD LAB - PATHOLOGY/CY TOLOGY ORDERABLES [facility] [address] [place] [address] * URINALYSIS AUTO - POINT OF CARE (AMB) [facility] (05/26/2023 1:16 PM CDT) Glucose UA neg [facility] [address] Bilirubin UA POCT neg [facility] [address] Ketones UA POCT neg [facility] [address] Specific [place] UA 1.[address] [facility] [address] Blood Urine POCT trace [facility] [address] Comment:3+ pH UA 5.[address] [facility] [address] Protein UA trace [facility] [address] Comment:1+ Urobilinogen UA 3.5 umol/L [facility] [address] Nitrite UA neg [facility] [address] [facility] [address] Urine URINE / Unknown 05/26/2023 1 :16 PM CDT Jose Oliver MD LAB - POINT OF CAR E ORDERABLES [facility] [address] [place] [address], [facility] [phone] documented in this encounter Visit Diagnoses Diagnosis [...] CDT documented in this encounter Care Teams Marketing Support Assistant Relationship Specialty Start Date End Date Deisi Andrews MD [address] [place] [phone] PCP - General Family Medicine 05/26/23 10/26/24 documented as of this encounter
--- OUTSIDE RECORDS SUMMARY | 2024-11-12 05:24 | XMS_ITS | Encounter Summary ---
Author Organization [facility] Address [address] [facility] [place] [address] Care Team Providers Care Commissioner Of Officials Name Role Phone Neva Holden MD Primary Care Provider [phone] Reason for Visit * Reason Comments Refill Request Encounter Details Date Type Department Care Team (Late st Contact Info) Description 12/03/2022 Refill [facility] Pul[facility], Critical Care [facility] Medicine [address] [facility] [place] [phone] Billy Don MD [address] OF PULMONARY/[place] [address] Refill Request Social History Tobacco Use Types [...] BY MOUTH TWICE DAILY Ashlie Waters MA TROSCOPIST documented in this encounter Plan of Treatment Upcoming Encounters Date Type Department Care Team (Late st Contact Info) Description 01/19/2025 11:30 AM SPECTROSCOPIST Procedure visit [facility] - Urology [address] [place] [address] [address] [place] [address] Jose Oliver MD [address] [place] [address] documented as of this encounter Goals Goal [...] (HCC) documented in this encounter Care Teams Commissioner Of Officials Relationship Specialty Start Date End Date Neva Holden MD [address] [place] [phone] PCP - General 05/06/20 05/25/23 documented as of this encounter
--- OUTSIDE RECORDS SUMMARY | 2024-11-12 05:24 | XMS_ITS | Encounter Summary ---
Author Organization [facility] Address [address] [facility] [place] [address] Care Team Providers Care Tin Whiz Machine Operator Name Role Phone Neva Holden MD Primary Care Provider [phone] Reason for Visit * Reason Comments COPD Follow-up Encounter Details Date Type Department Care Team (Latest Contact Info) Description 01/05/2022 2:30 PM SPEAKER WIRER Office Visit [facility] [place] [phone] Bora Martel MD [address] [place] [address] Stage 2 moderate COPD by GOLD classification ([facility]) (Primary Dx); Obstructive sleep apnea; Acute exacerbation [...] COVID-19? No / Unsure 12/31/2021 8:43 AM SPEAKER WIRER documented as of this encounter Last Filed Vital Signs Vital Sign Reading Time Taken Comments Blood Pressure 118/78 01/05/2022 2:06 PM SPEAKER WIRER Pulse 90 01/05/2022 2:06 PM SPEAKER WIRER Temperature 35.3 ??C (95.5 ??F) 01/05/2022 2:[address] Respiratory Rate 18 01/05/2022 2:06 PM SPEAKER WIRER Oxygen Saturation 96% 01/05/2022 2:06 PM SPEAKER WIRER Inhaled Oxygen Concentration - - Weight 90.7 kg (200 lb) 01/05/2022 2:06 PM SPEAKER WIRER Height 157.5 cm (5' 2 ) 01/05/2022 2:06 PM SPEAKER WIRER Body Mass Index 36.58 01/05/2022 2:06 PM SPEAKER WIRER documented in this encounter Progress Notes * Bora Martel MD - 01/05/2022 2:23 PM CST Images from the original note were not included. Division of Pulmonary, Critical Care, and Sleep Medicine [address] [place] [address], [address] [place] [address] HISTORY OF PRESENT ILLNESS: ?? Rody Zaidi??is [...] Rfl: 11 ??? 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 Ref to Physical Therapy - [facility] PT Standing Status: Future Standing Expiration [...] of Pulmonary, Critical Care and Sleep Medicine [facility] Pager:[phone] KER WIRER Associated attestation - Billy Don MD - 01/06/2022 8:01 AM SPEAKER WIRER I have seen and examined the patient with the resident and I agree with the findings and plan of care as documented by the resident. Date of service: 01/05/2022 Billy Don MD Manager Resource of Internal Medicine Division of Pulmonary, Critical Care and Sleep Medicine [facility] Pager: [phone] documented in this encounter Miscellaneous Notes * Addendum Note - Bora Martel MD - 02/02/2022 3:13 PM CDTAddended by: BORA MARTEL on: 02/02/2022 03:13 PM Modules accepted: Orders documented in this encounter Plan of Treatment Upcoming Encounters Date Type Department Care Team (Late st Contact Info) Description 01/19/2025 11:30 AM SPEAKER WIRER Procedure visit [facility] - Urology [address] [place] [address] [address] [place] [address] Jose Oliver MD [facility] [place] [phone] documented as of this encounter Goals Goal [...] Stage 2 moderate COPD by GOLD classification ([facility])- Primary Obstructive sleep apnea Obstructive sleep apnea (adult) (pediatric) Acute exacerbation of chronic obstructive pulmonary disease (COPD) (HCC) Obstructive chronic bronchitis with exacerbation Encounter for screening for lung cancer Tobacco use disorder Need for prophylactic vaccination and inoculation against influenza documented in this encounter Care Teams Tin Whiz Machine Operator Relationship Specialty Start Date End Date Neva Holden MD [address] [place] [phone] PCP - General 05/06/20 05/25/23 documented as of this encounter
--- OUTSIDE RECORDS SUMMARY | 2024-11-12 05:24 | XMS_ITS | Encounter Summary ---
Author Organization [facility] Address [address] [place] [address] Care Team Providers Care Still Operator Name Role Phone Neva Holden MD Primary Care Provider [phone] Reason for Visit * Auth/Cert Specialty Diagnoses / Procedures Referred By Nacho t Referred To Contact Diagnoses Diagnosis unknown Diagnosis unknown [R69] Procedures TRANSURETHRAL RESECTION BLADDER TUMOR (TURBT) URETEROSCOPY (FLEXIBLE OR RIGID) Referral ID Status Reason Start Date Expiration Date Visits Re quested Visits Authorized [id number] 1 1 Encounter Details Date Type Department Care Team (Late st Contact Info) Description 03/23/2022 7:30 AM CDT - 03/23/2022 9:20 AM CDT Surgery [facility] PERIOPERATIVE [address] [place] [address] Jose Oliver MD [address] [place] [address] [place] [phone] TRANSURETHRAL RESECTION BLADDER TUMOR (TURBT) Surgery Details Date/Time Status Location OR Service Patient Class Case Class Case Type Trauma Case? 03/23/2022 7:30 AM Posted [facility] MAIN OR OR 05 Urology Surgery Day Care Elective > 5 days Panel 1 Procedure LRB Anes Op Region Wound Class Comments TRANSURETHRAL RESECTION BLAD MARIO TUMOR (TURBT) General Bladder Clean Contaminated URETEROSCOPY Left General Bladder Clean Contaminate d Surgeon Surgeon Role Service Panel Jsoe Oliver MD Primary Urology 1 documented in [...] surgery or the recovery process, please contact [facility] Urology at [phone] during regular business hours. On weekends or in the evening, please contact [facility] Hospital at [phone] and ask for whoever is overhead distribution engineer for Dr. Oliver/ Urology. In addition, please [...] COPD by GOLD classification ([facility]) Inhale 2 (two) puffs by mouth [...] tablet 4 12/08/2021 vitamin D, ergocalciferol, (DRISDOL) 03073 UNITS capsule Take 1 (one) capsule by [...] COPD by GOLD classification ([facility]) Inhale 2 (two) puffs by mouth [...] 3 12/08/2021 01/11/2023 mirtazapine (REMERON) 15 MG tabletIndications:Reha r Depressive Disorder,Panic Disorder Take 0.5 (one-half) tablet by mouth at bedtime for 90 days Reasons: Major Depressive Disorder, Panic Disorder 45 tablet 12/31/2021 03/26/2022 ggnbknwl-dszpljdkd-djc ameth (MAXITROL) ophthalmic suspension INSTILL 1 DROP INTO AFFECTED EYE(S) EVERY 3 TO 4 HOURS WHILE AWAKE 01/06/2022 01/11/2023 jhorqdwg-kkbbcsnel-cv (CORTISPORIN) 3.5-83686-2 otic suspension SHAKE LIQUID AND INSTILL 4 DROPS TO AFFECTED EAR THREE TIMES DAILY 01/06/2022 01/11/2023 nicotine (NICODERM CQ) 21 MG/24HR patch APPLY 1 PATCH TOPICALLY ONCE DAILY 01/16/2022 10/22/2023 ondansetron (ZOFRAN) 8 MG tablet 1 (one) tablet every 6 hours as needed 11/22/2023 pantoprazole EC (PROTONIX) 40 MG tabletIndications:need follow up visit for further [phone] option 1 Take 1 (one) tablet by mouth once daily Reasons: need follow up visit for further [phone] option 1 90 tablet 3 01/23/2022 06/15/2024 [...] pT1 vs pT2. Patient was referred to [facility] Urology for further evaluation/management. Internal review of [...] 2014 ??? HX TUBAL LIGATION 1989 ??? [place] FOOT/TOES SURGERY PROC UNLISTED ??? Tympanostomy 2013 [...] tablet by mouth once daily 12/08/21 Yes Moniac Quijano MD famotidine (PEPCID) 40 MG tablet [...] Disorder 12/31/21 03/31/22 Yes Kathleen Stevenson MD ecnplxov-hcjhuypou-ejawlzgs (MAXITROL) ophthalmic suspension INSTILL 1 DROP INTO AFFECTED EYE(S) EVERY 3 TO 4 HOURS WHILE AWAKE 01/06/22 Ramírez Baeza MD rldztqvz-dtzbfppfe-qu (CORTISPORIN) 3.5-32990-9 otic suspension SHAKE LIQUID AND INSTILL 4 [...] Reasons: need follow up visit for further [phone] option 1 01/23/22 Yes Sebastian Lombardi MD [...] Bora Ferreira MD vitamin D, ergocalciferol, (DRISDOL) 72614 UNITS capsule Take 50,000 Units by mouth [...] Role: * Jose Oliver MD - Primary Waist Cutter(s): Kofi Martin MD Anesthesia Type: general ETT [...] pT1 vs pT2. Patient was referred to [facility] for further evaluation/management. Internal review of pathology slides determined patient had high grade pT1 urothelial cell carcinoma. However there also appears to be left distal ureteral involvement with obstruction requiring stent. The patient presents today for operative intervention. After reviewing the various risks benefits and alternatives, patient provided informed consent to the [facility]. DESCRIPTION OF PROCEDURE: Patient was brought to [...] st Contact Info) Description 01/19/2025 11:30 AM HOT STRIP MILL INSPECTOR Procedure visit [facility] - Urology [address] [place] [address] [address] [place] [phone] Jose Oliver MD [facility] [place] [phone] documented as of this encounter Goals Goal [...] Routine 03/23/2022 8:11 AM CDT Diagnosis unknown [place] CYSTO/URETERO/PYELOSCO PY, DX 03/23/2022 6:40 AM CDT [...] OF CARE (03/23/2022 8:38 AM CDT) Pathologist [facility] Glucose WB/POC 176(H) 70 - 106 mg/dL 03/23/2022 8:48 AM CDT [facility] Specimen Type Cap Fingerstick 2021 8:48 AM CDT [facility] Blood BLOOD SPECIMEN / Unknown 03/23/2022 8:38 AM CDT 03/23/2022 8:48 AM CDT Jose Oliver MD LAB - POINT OF CAR E ORDERABLES [facility] [address] [place] [address] * PATHOLOGY TISSUE EXAM (STL) (03/23/2022 8:11 AM CDT) Case Report Surgical Pathology Report ? Case: [id number] ? Authorizing Provider: ??Jose Oliver MD ?Collected: ? 03/23/2022 08:11 AM ? Ordering Location: ? [facility] ? Received: ?03/23/2022 08:51 AM ? Pathologist: ? Kenan Maria MD ? Specimen: ?Bladder Mass, BLADDER TUMOR ? 03/24/2022 4:30 PM CDT [facility] Final Diagnosis Urinary bladder, transurethral resection of bladder tumor: 1. Negative for malignancy 2. Acute and chronic inflammation, fibrosis, and dystrophic calcification consistent with biopsy site changes 3. Detrusor muscle present, negative for tumor invasion 03/24/2022 4:30 PM CDT [facility] Clinical History Bladder mass 03/24/2022 4:30 PM CDT [facility] Gross Description The requisition and specimen are identified with patient's name and date of . Received in formalin, specimen A, bladder tumor aggregate of hawthorne-pink hawthorne soft tissues, 1.5 x 1.5 x 0.3 cm. Entirely submitted in cassette A1. LJ 03/24/2022 4:30 PM CDT [facility] Microscopic Description Immunostain for pancytokeratin (control appropriate) is negative for tumor. Residual surface urothelium has eyelet row marker maturation. 03/24/2022 4:30 PM CDT [facility] Disclaimer All histochemical and/or immunohistochemical results are interpreted with controls that demonstrate appropriate staining reactions before reporting results. Note on use of immunocytochemistry reagents: This test was developed and its performance characteristic determined by [facility], Department of Laboratory Medicine. It has not [...] interpreted with caution. 03/24/2022 4:30 PM CDT [facility] Embedded Images 03/24/2022 4:30 PM CDT [facility] Pathology/Cytolo gy MASS OF URINARY BLADDER / Unknown 03/23/2022 8:11 AM CDT 03/23/2022 8:51 AM CDT Comment:Pre-op diagnosis: Diagnosis unknown [R69] Jose Oliver MD LAB - PATHOLOGY/CY TOLOGY ORDERABLES Performing Organization Address [facility] de Phone Number [facility] [address] [place], [place] [phone] * (ABNORMAL) GLUCOSE - POINT OF CARE (03/23/2022 6:14 AM CDT) Glucose WB/POC 194(H) 70 - 106 mg/dL 03/23/2022 6:20 AM CDT [facility] Specimen Type Venous 03/23/2022 6:20 AM CDT [facility] Blood BLOOD SPECIMEN / Unknown 03/23/2022 6:14 AM CDT 03/23/2022 6:20 AM CDT Jose Oliver MD LAB - POINT OF CAR E ORDERABLES [facility] [address] [place] [address] documented in this encounter Visit Diagnoses Diagnosis [...] ($ Given - Prov ider: Wilfred Delgado, FABRICATION ENGINEER-CIGAR BANDER HAND) ibuprofen (Motrin) tablet 600 mg (COMPLETED) 600 [...] (Anesthesia Volume Adjustment - Provider: Wilfred Delgado APRN-CIGAR BANDER HAND) lactated ringers infusion at 125 mL/hr, Intravenous, [...] Pre-op documented in this encounter Care Teams Still Operator Relationship Specialty Start Date End Date Neva Holden MD [address] [place] [phone] PCP - General 05/06/20 05/25/23 documented as of this encounter
--- OUTSIDE RECORDS SUMMARY | 2024-11-12 05:25 | XMS_ITS | Encounter Summary ---
Author Organization [facility] Address [address] [facility] [place] [address] Care Team Providers Care Colorist Name Role Phone Neva Holden MD Primary Care Provider [phone] Encounter Details Date Type Department Care Team (Late Contact Info) Description 02/21/2021 Orders Only [facility] [address] [place] [phone] Kathleen Stevenson MD [address] [place] [address] Social History Tobacco Use Types Packs/Day Years [...] (Late Contact Info) Description 01/19/2025 11:30 AM FIELD INVESTIGATOR Procedure visit [facility] - Urology [address] [place] [address] [address] [place] [phone] Jose Oliver MD [address] [facility] 2L DIV [place] [phone] documented as of this encounter Goals Goal [...] on filedocumented in this encounter Care Teams Colorist Relationship Specialty Start Date End Date Neva Holden MD [address] [place] [phone] PCP - General 05/06/20 05/25/23 documented as of this encounter
--- OUTSIDE RECORDS SUMMARY | 2024-11-12 05:25 | XMS_ITS | Encounter Summary ---
Author Organization [facility] Address [address] [facility] [place] [address] Care Team Providers Care Nursing Staff Development Coordinator Name Role Phone Dane Sullivan Primary Care Provider Reason for Visit * Reason Onset Date Comments Appointment 02/01/2020 Encounter Details Date Type Department Care Team (Late Contact Info) Description 02/01/2020 Telephone [facility] [address] [place] [address] Lita Shah MD [facility] [place] [address] Appointment Social History Tobacco Use Types Packs/Day [...] Contact Info) Description 01/19/2025 11:30 AM STUDENT TRUCK DRIVER Procedure visit [facility] Urology [address] [place] [address] Rd [address] [place] [address] Jose Oliver MD [address] [place] [address] documented as of this encounter Visit Diagnoses Not on filedocumented in this encounter Care Teams Nursing Staff Development Coordinator Relationship Specialty Start Date End Date Dane Sullivan DO PCP - General 06/24/17 05/05/20 documented as of this encounter
--- OUTSIDE RECORDS SUMMARY | 2024-11-12 05:25 | XMS_ITS | Encounter Summary ---
Author Organization [facility] Address [address] [facility] [place] [address] Care Team Providers Care Gis Professor Name Role Phone Neva Holden MD Primary Care Provider [phone] Reason for Visit * Reason Comments Blurred Vision Encounter Details Date Type Department Care Team (Late st Contact Info) Description 07/02/2020 8:00 AM CDT Office Visit [facility] [address] [place] [address] Anne Mitchell, OD [address] [facility] DEPT [place] [phone] Refractive error (Primary Dx); Blurred vision Social [...] 30tablet 2 ??? vitamin D, ergocalciferol, (DRISDOL) 97297 UNITS capsule No current facility-administered medications for [...] 2014 ??? HX TUBAL LIGATION 1989 ??? CT FOOT/TOES SURGERY PROC UNLISTED ??? Tympanostomy 2014 [...] Full Full Refraction Wearing Rx Sphere Cylinder [place] Right -2.50 +0.50 141 Left -3.00 +1.50 027 Manifest Refraction Sphere Cylinder [place] Dist [place] Right -2.75 +0.25 137 20/20-1 Left -3.00 +1.50 030 20/20-1 Does not want add Final Rx Sphere Cylinder [place] Dist [place] Right -2.75 +0.25 137 20/20-1 [...] st Contact Info) Description 01/19/2025 11:30 AM WORKERS COMPENSATION PARALEGAL Procedure visit [facility] - Urology [address] [place] [address] [address] [place] [address] Jose Oliver MD [address] [place] [address] documented as of this encounter Visit Diagnoses Diagnosis Refractive error- Primary Unspecified disorder of refraction and accommodation Blurred vision Other specified visual disturbances documented in this encounter Care Teams Gis Professor Relationship Specialty Start Date End Date Neva Holden MD [address] [place] [phone] PCP - General 05/06/20 05/25/23 documented as of this encounter
--- OUTSIDE RECORDS SUMMARY | 2024-11-12 05:25 | XMS_ITS | Encounter Summary ---
Author Organization [facility] Address [address] [facility] [place] [address] Care Team Providers Care Installation Supervisor Name Role Phone Neva Holden MD Primary Care Provider [phone] Encounter Details Date Type Department Care Team (Late Contact Info) Description 10/01/2020 Orders Only [facility] [address] [facility] [address] [place] [address] Monica Quijano MD Stable angina pectoris Social [...] (Late Contact Info) Description 01/19/2025 11:30 AM FARE COLLECTOR Procedure visit [facility] - Urology [address] [place] [address] [address] [place] [phone] Jose Oliver MD [address] [place] [phone] documented as of this encounter Goals Goal [...] CARDIAC CATH LEFT Routine 10/24/2020 10:29 AM FARE COLLECTOR Stable angina pectoris documented in this encounter Results * CCL CARDIAC CATH LEFT (10/24/2020 10:29 AM FARE COLLECTOR) Anatomical Region Laterality Modality Chest X-Ray Angiograph y Narrative 11/05/2020 4:10 PM FARE COLLECTOR [facility] Cardiac Catheterization Procedure Note Patient: Rody Zaidi Age: [age] year old Date of : 1960 Date of Admission: 10/24/2020 Procedure Date: 10/24/20 FELLOW / EYE SPECIALIST: Mart Clinton ATTENDING PHYSICIAN: Dr. Deven [...] had chest pain with dyspnea. Coming for [facility] for evaluation. Also reported abnormal test in past but no image or report available. Per outside quarter trimmer Stress test done in 01/2020 was clinically [...] evaluation, please review the evaluation forms in [facility]. For details on monitored clinical parameters during the intra-service sedation time, please review the procedure nurse documentation in [facility]. Total sedation administered as follows: ??25 [...] Deven Gonzalez MD Monica Quijano MD CARDIAC VERTICAL BORER RA DIANT documented in this encounter Visit Diagnoses Diagnosis Stable angina pectoris (HCC) Essential (primary) hypertension- Primary Unspecified essential hypertension PAD (peripheral artery disease) (HCC) Unspecified disorders of arteries and arterioles CAD in [place] artery Coronary atherosclerosis of [place] coronary artery documented in this encounter Care Teams Installation Supervisor Relationship Specialty Start Date End Date Neva Holden MD [address] [place] [phone] PCP - General 05/06/20 05/25/23 documented as of this encounter
--- OUTSIDE RECORDS SUMMARY | 2024-11-12 05:25 | XMS_ITS | Encounter Summary ---
Author Organization [facility] Address [address] [facility] [place] [address] Care Team Providers Care Embedded Developer Name Role Phone Neva Holden MD Primary Care Provider [phone] Reason for Visit * Reason Onset Date Comments LABS ONLY 09/05/2021 Encounter Details Date Type Department Care Team (Late st Contact Info) Description 09/05/2021 Telephone [facility] [address] [facility] [address] [place] [address] Adrianna Adair, RN LABS ONLY Social History [...] to get the lipid panel done at [facility] on 09/30. Informed her publications writer will return call to discuss results. Patient [...] Contact Info) Description 01/19/2025 11:30 AM BARREL REPAIRER Procedure visit [facility] - Urology [address] [place] [address] [address] [place] [address] Jose Oliver MD [address] [place] [phone] documented as of this encounter Goals Goal [...] Comments LIPID PROFILE Routine 09/30/2021 7:11 AM BARREL REPAIRER Hyperlipidemia, unspecified hyperlipidemia type documented in this encounter Results * (ABNORMAL) LIPID PROFILE (09/30/2021 7:11 AM BARREL REPAIRER) Cholesterol 198 <200 mg/dL [facility] HDL Cholesterol [...] LDL-C. James SS et al. LB. 2013;310(19): 6006-3568 (http://education.MindMixer/faq/BGW409) CHOL/HDLC RATIO 3.7 <5.0 (calc) [facility] Non HDL Cholesterol 145(H) <130 mg/dL (calc) [facility] Comment: For patients with diabetes plus 1 major ASCVD risk factor, treating to a non-HDL-C goal of <100 mg/dL (LDL-C of <70 mg/dL) is considered a therapeutic option. REPORT COMMENT: FASTING:YES Test Performed at: [facility] [address] [place], [place] ??[phone] JESSICA MANLEY DO,MPH Blood BLOOD SPECIMEN / Unknown 09/30/2021 7:11 AM BARREL REPAIRER 09/30/2021 7:11 AM BARREL REPAIRER Monica Quijano MD LAB - CHEMISTRY ORD ERABLES [facility] [address] [place] [address] documented in this encounter Visit Diagnoses Diagnosis Hyperlipidemia, unspecified hyperlipidemia type- Primary documented in this encounter Care Teams Embedded Developer Relationship Specialty Start Date End Date Neva Holden MD [address] [place] [phone] PCP - General 05/06/20 05/25/23 documented as of this encounter
--- OUTSIDE RECORDS SUMMARY | 2024-11-12 05:25 | XMS_ITS | Encounter Summary ---
Author Organization [facility] Address [address] [facility] [place] [address] Care Team Providers Care Education Paraprofessional Name Role Phone Neva Holden MD Primary Care Provider [phone] Encounter Details Date Type Department Care Team [...] COVID-19? No / Unsure 10/06/2021 12:48 PM EXHAUST AND MUFFLER FITTER documented as of this encounter Plan of Treatment Upcoming Encounters Date Type Department Care Team (Late st Contact Info) Description 01/19/2025 11:30 AM EXHAUST AND MUFFLER FITTER Procedure visit [facility] [address] [place] [address] [address] [place] [phone] Jose Oliver MD [address] [place] [phone] documented as of this encounter Goals Goal [...] on filedocumented in this encounter Care Teams Education Paraprofessional Relationship Specialty Start Date End Date Neva Holden MD [address] [place] [phone] PCP - General 05/06/20 05/25/23 documented as of this encounter
--- OUTSIDE RECORDS SUMMARY | 2024-11-12 05:25 | XMS_ITS | Encounter Summary ---
Author Organization [facility] Address [address] [place] [address] Care Team Providers Care Natural Resource Officer Name Role Phone Neva Holden MD Primary Care Provider [phone] Reason for Referral * Radiology Services (Routine) - Closed Specialty Diagnoses / Procedures Referred By Contac t Referred To Contact Vascular Lab Diagnoses PAD (peripheral artery disease) (HCC) Procedures VAS ARTERIAL ANKLE ARM INDEX Ruy Zendejas MD [address] [place] [address] [facility] Us [address] [place] [phone] Referral ID Status Reason Start Date Expiration Date Visits Re quested Visits Authorized [id number] Closed 09/04/2020 09/04/2021 1 1 DRIVER Reason for Visit * Radiology Services (Routine) - Closed Specialty Diagnoses / Procedures Referred By Contac t Referred To Contact Vascular Lab Diagnoses PAD (peripheral artery disease) (HCC) Procedures VAS ARTERIAL ANKLE ARM INDEX Ruy Zendejas MD [address] [place] [address] [facility] [address] [place] [phone] Referral ID Status Reason Start Date Expiration Date Visits Re quested Visits Authorized [id number] Closed 09/04/2020 09/04/2021 1 1 Encounter Details Date Type Department Care Team (Latest Contact Info) Description 10/22/2020 8:10 AM UKE DRIVER - 10/22/2020 11:59 PM UKE DRIVER Hospital Encounter [facility] [address] [place] [address] Ruy Zendejas MD [address] [place] [address] Discharge Disposition: Home or Self Care Social [...] COVID-19? No / Unsure 10/22/2020 8:01 AM UKE DRIVER documented as of this encounter Medications at [...] evening meal 12/27/2016 vitamin D, ergocalciferol, (DRISDOL) 37037 UNITS capsule Take 1 (one) capsule by [...] st Contact Info) Description 01/19/2025 11:30 AM UKE DRIVER Procedure visit [facility] - Urology [address] [place] [address] [address] [place] [address] Jose Oliver MD [address] [place] [phone] documented as of this encounter Goals Goal [...] ANKLE ARM INDEX Routine 10/22/2020 9:03 AM UKE DRIVER PAD (peripheral artery disease) (HCC) documented in this encounter Results * VAS ARTERIAL ANKLE ARM INDEX (10/22/2020 9:03 AM UKE DRIVER) Anatomical Region Laterality Modality Ankle / Foot, Upper Extremity In travascular Ultrasound 10/22/2020 8:16 AM UKE DRIVER Narrative Procedure Note Eric Costa MD - 10/22/2020 Ruy Zendejas MD VASCULAR LAB ORDERAB LES documented in this encounter Visit Diagnoses Diagnosis PAD (peripheral artery disease) (HCC) Unspecified disorders of arteries and arterioles documented in this encounter Care Teams Natural Resource Officer Relationship Specialty Start Date End Date Neva Holden MD [address] [place] [phone] PCP - General 05/06/20 05/25/23 documented as of this encounter
--- OUTSIDE RECORDS SUMMARY | 2024-11-12 05:25 | XMS_ITS | Encounter Summary ---
Author Organization [facility] Address [address] [facility] [place] [address] Care Team Providers Care Petal Shaper Hand Name Role Phone Neva Holden MD Primary Care Provider [phone] Encounter Details Date Type Department Care Team (Late Contact Info) Description 12/04/2020 Orders Only [facility] [address] [facility] [address] [place] [address] Monica Quijano MD Stable angina Social History [...] for Cardiac Rehab - diagnosis stable angina. OR MECHANICAL DESIGN ENGINEER documented in this encounter Plan of Treatment Upcoming Encounters Date Type Department Care Team (Late Contact Info) Description 01/19/2025 11:30 AM SENIOR MECHANICAL DESIGN ENGINEER Procedure visit [facility] - Urology [address] [place] [address] [address] [place] [phone] Jose Oliver MD [address] DIV OF UROLOGIC [place] [address] documented as of this encounter Goals Goal [...] pectoris documented in this encounter Care Teams Petal Shaper Hand Relationship Specialty Start Date End Date Neva Holden MD [address] [place] [phone] PCP - General 05/06/20 05/25/23 documented as of this encounter
--- OUTSIDE RECORDS SUMMARY | 2024-11-12 05:25 | XMS_ITS | Encounter Summary ---
Author Organization [facility] Address [address] [facility] [place] [address] Care Team Providers Care Refrigeration Installer Name Role Phone Neva Holden MD Primary Care Provider [phone] Reason for Referral * Radiology Services (Routine) - Closed Specialty Diagnoses / Procedures Referred By Contac t Referred To Contact Vascular Lab Diagnoses Bilateral carotid artery stenosis Procedures VAS CAROTID DUPLEX BILATERAL Jose A Clark MD [address] [facility] 2L DIV OF [place]ASC[place] [address] [facility] Us [facility] [place] [address] Referral ID Status Reason Start Date Expiration Date Visits Re quested Visits Authorized [id number] Closed 10/03/2020 10/03/2021 1 1 OPERATOR Reason for Visit * Radiology Services (Routine) - Closed Specialty Diagnoses / Procedures Referred By Contac t Referred To Contact Vascular Lab Diagnoses Bilateral carotid artery stenosis Procedures VAS CAROTID DUPLEX BILATERAL Jose A Clark MD [address] [facility] 2L DIV OF [place] [address] [facility] Us [address] [place] [address] Referral ID Status Reason Start Date Expiration Date Visits Re quested Visits Authorized [id number] Closed 10/03/2020 10/03/2021 1 1 Encounter Details Date Type Department Care Team (Latest Contact Info) Description 10/22/2020 8:00 AM KIER OPERATOR - 10/22/2020 8:08 AM KIER OPERATOR Hospital Encounter [facility] [address] [place] [address] Jose A Clark MD [address] [facility] [facility] [facility] [address] [place] [address] Discharge Disposition: Home or Self [...] COVID-19? No / Unsure 10/22/2020 8:01 AM KIER OPERATOR documented as of this encounter Medications at [...] evening meal 12/27/2016 vitamin D, ergocalciferol, (DRISDOL) 07808 UNITS capsule Take 1 (one) capsule by [...] st Contact Info) Description 01/19/2025 11:30 AM KIER OPERATOR Procedure visit [facility] - Urology [address] [place] [address] [address] [place] [address] Jose Oliver MD [address] OF [place]OLOGIC [place] [address] documented as of this encounter Goals Goal [...] CAROTID DUPLEX BILATERAL Routine 10/22/2020 9:27 AM KIER OPERATOR Bilateral carotid artery stenosis documented in this encounter Results * VAS CAROTID DUPLEX BILATERAL (10/22/2020 9:27 AM KIER OPERATOR) Anatomical Region Laterality Modality Neck Intravascular Ul trasound 10/22/2020 9:04 AM KIER OPERATOR Narrative Procedure Note Eric Costa MD - 10/22/2020 Jose A Clark MD VASCULAR LAB ORDERAB LES documented in this encounter Visit Diagnoses Diagnosis Bilateral carotid artery stenosis Occlusion and stenosis of multiple and bilateral precerebral arteries without mention of cerebral infarction documented in this encounter Care Teams Refrigeration Installer Relationship Specialty Start Date End Date Neva Holden MD [address] [place] [phone] PCP - General 05/06/20 05/25/23 documented as of this encounter
--- OUTSIDE RECORDS SUMMARY | 2024-11-12 05:25 | XMS_ITS | Encounter Summary ---
Author Organization [facility] Address [address] [facility] [place] [address] Care Team Providers Care Director East Coast Sales Name Role Phone Neva Holden MD Primary Care Provider [phone] Reason for Referral * Radiology Services (Routine) - Closed Specialty Diagnoses / Procedures Referred By Nacho brooks Referred To Contact Interventional Radiology Diagnoses PAD (peripheral artery disease) ([facility]) Procedures IR ANGIOGRAM LEFT LEG Kendrick Clark MD [address] [place] [address] [facility] [address] [place] [address] Referral ID Status Reason Start Date Expiration Date Visits Re quested Visits Authorized [id number] Closed 08/20/2020 11/22/2020 1 1 Reason for Visit * Reason Comments Pvd Encounter Details Date Type Department Care Team (Late st Contact Info) Description 08/08/2020 10:15 AM CDT Office Visit [facility] Vascular Surgery [address] [facility], [place] [address] Kendrick Clark MD [address] [facility] [address] [place] [phone] PAD (peripheral artery disease) (HCC) (Primary Dx) [...] the office with any questions or concerns. [phone] documented in this encounter Progress Notes * [...] [place] FOOT/TOES SURGERY PROC UNLISTED ??? 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 vitamin D, ergocalciferol, (DRISDOL) 64469 UNITS capsule, , Disp: , Rfl: Review [...] WBC, HGB, HCT, PLT in the last 46356 hours. No results for input(s): NA, K, CL, CO2, BUN, CREATININE, GLU in the last 73821 hours. No results for input(s): PT, PTT, INR in the last 20840 hours. Imaging: Prior imaging in June 2020 [...] results from angiography. Taiwo Trotter Medical Student [facility] Pager: [phone] August 08, 2020 10:59 AM documented in this encounter Plan of Treatment Upcoming Encounters Date Type Department Care Team (Late st Contact Info) Description 01/19/2025 11:30 AM SLEEVER Procedure visit [facility] - Urology [address] [place] [address] [address] [place] [address] Jose Oliver MD [address] [place] [address] documented as of this encounter Results * [...] stent placement x2 ATTENDING: Kendrick Clark MD ENGROSSER: Ruy Zendejas MD ANESTHESIA: Moderate conscious sedation [...] sheath was then exchanged for a 5 [place] sheath over the provided J-wire. A Glidewire [...] sheath was then exchanged for a 5 [place] sheath over a J-wire. A Glidewire and angled glide catheter were then used to attempt crossing the occluded left common iliac artery from below. However, this was initially unsuccessful as it had appeared that the wire and catheter were tracking into a dissection plane in the [place] distal left common iliac artery. Crossing from [...] For increased support, the left groin 5 [place] sheath was exchanged for a longer 5 [place] sheath. The back of the Glidewire and [...] was withdrawn and the left groin 5 [place] sheath was exchanged for a 7 [place] sheath. In order to prevent jailing of the right common iliac artery and stent, the decision was made to place a balloon in the right common iliac artery and stent with plans to insufflate this in tandem with deployment of the new stent on the left. The wire on the right was exchanged for an Amplatz wire in the right groin 5 [place] sheath was exchanged for a 6 [place] sheath. A 9 mm x 40 mm Mcnabb balloon was then advanced via the right [...] necessitating further intervention. The left groin 7 [place] sheath was exchanged for a short 7 [place] sheath. The wires were withdrawn and Mynx [...] stent placement x2 ATTENDING: Kendrick Clark MD ENGROSSER: Ruy Zendejas MD ANESTHESIA: Moderate conscious sedation [...] micropuncture sheath was then exchangedfor a 5 [place] sheath over the provided J-wire. A Glidewire [...] sheath was then exchanged for a 5 [place] sheath over a J-wire. AGlidewire and angled glide catheter were then used to attempt crossing theoccluded left common iliac artery from below. However, this was initially unsuccessful as it had appeared that the wire and catheter were tracking into a dissection plane in the [place] distal left common iliac artery. Crossing from [...] sheath was exchanged for a longer 5 [place] sheath. The back of the Glidewire and [...] was withdrawn and the left groin 5 [place] sheath was exchanged for a 7 [place] sheath. In order to prevent jailing of theright common iliac artery and stent, the decision was made to place a balloonin the right common iliac artery and stent with plans to insufflate this in tandem with deployment of the new stent on the left. The wire on theright was exchanged for an Amplatz wire in the right groin 5 [place] sheath was exchanged for a 6 [place] sheath. A 9 mm x 40 mm Mcnabb balloon was then advanced via the right [...] necessitating further intervention. The left groin 7 [place] sheath was exchanged for a short 7 [place] sheath. The wires were withdrawn and Mynx [...] type documented in this encounter Care Teams Director East Coast Sales Relationship Specialty Start Date End Date Neva Holden MD [address] [place] [phone] PCP - General 05/06/20 05/25/23 documented as of this encounter
--- OUTSIDE RECORDS SUMMARY | 2024-11-12 05:25 | XMS_ITS | Encounter Summary ---
Author Organization [facility] Address [address] [facility] [place] [address] Care Team Providers Care Director Of Global Talent Name Role Phone Neva Holden MD Primary Care Provider [phone] Reason for Visit * Reason Onset Date Comments MEDICATION REFILL 09/05/2021 Encounter Details Date Type Department Care Team (Late Contact Info) Description 09/05/2021 Refill [facility] [address] [place] [address], [place] [address] Sebastian Lombardi MD [address] [phone] MEDICATION REFILL Social History Tobacco Use Types [...] (Late Contact Info) Description 01/19/2025 11:30 AM ROUGE SIFTER Procedure visit [facility] - Urology [address] [place] [address] [address] [place] [phone] Jose Oliver MD [address] [place] [address] [place] [phone] documented as of this encounter Goals Goal [...] Primary documented in this encounter Care Teams Director Of Global Talent Relationship Specialty Start Date End Date Neva Holden MD [address] [place] [phone] PCP - General 05/06/20 05/25/23 documented as of this encounter
--- OUTSIDE RECORDS SUMMARY | 2024-11-12 05:25 | XMS_ITS | Encounter Summary ---
Author Organization [facility] Address [address] [facility] [place] [address] Care Team Providers Care Oracle Adf Consultant Name Role Phone Neva Holden MD Primary Care Provider [phone] Reason for Visit * Reason Comments Refill Request Encounter Details Date Type Department Care Team (Late Contact Info) Description 07/01/2021 Refill [facility] [address] [facility] [address] [place] [address] Monica Quijano MD Refill Request Social History [...] (Late Contact Info) Description 01/19/2025 11:30 AM MID LEVEL PROVIDER Procedure visit [facility] - Urology [address] [place] [address] [address] [place] [address] Jose Oliver MD [address] [facility] 2L [place] [phone] documented as of this encounter Goals Goal [...] filedocumented in this encounter Care Teams Oracle Adf Consultant Relationship Specialty Start Date End Date Neva Holden MD [address] [place] [phone] PCP - General 05/06/20 05/25/23 documented as of this encounter
--- OUTSIDE RECORDS SUMMARY | 2024-11-12 05:25 | XMS_ITS | Encounter Summary ---
Author Organization [facility] Address [address] [facility] [place] [address] Care Team Providers Care Mixing And Dispensing Supervisor Name Role Phone Neva Holden MD Primary Care Provider [phone] Encounter Details Date Type Department Care Team (Late st Contact Info) Description 06/10/2021 10:20 AM CDT Office Visit [facility] Cardiology [address] [facility] [address] [place] [address] Monica Quijano MD Coronary artery disease of [place] artery of [place] heart with stable angina pectoris (HCC) (Primary [...] You can get blood work done at [facility] on [address] without an appointment. Check in and let them know you are there for blood work at the front sight attacher, you will be directed to where you need to go from there. This is to make sure the atha is doing it's job. Please call my nurse, Jacquelin, with any questions or concerns. She can be reached at: [phone] documented in this encounter Progress Notes * Mnoica Quijano MD - 06/10/2021 10:51 AM CDT [...] , Rfl: ??? vitamin D, ergocalciferol, (DRISDOL) 59731 UNITS capsule, , Disp: , Rfl: Physical [...] st Contact Info) Description 01/19/2025 11:30 AM LIQUEFIED NATURAL GAS OPERATOR Procedure visit [facility] - Urology [address] [place] [address] [address] [place] [address] Jose Oliver MD [facility] [place] [address] documented as of this encounter Goals Goal [...] * (ABNORMAL) LIPID PROFILE (12/02/2021 10:26 AM [facility]) Cholesterol Total 209(H) <200 mg/dL 12/02/2021 11:59 AM [facility] HDL 38(L) >40 mg/dL 12/02/2021 11:59 AM [facility] Comment: ATP III Classification of HDL Cholesterol: ? <40 mg/dL: ??Considered a major risk factor. ? >60 mg/dL: ??Considered a negative risk factor. ? LDL Calculated 12/02/2021 11:59 AM [facility] Comment:Calculation of LDL v alue was not performed because triglyceride concentrations greater than 400 mg/dL render the calculated value invalid. For this reason, the LDL Direct assay for measurement of LDL Cholesterol has been performed (per laboratory protocol). Triglycerides 544(H) <150 mg/dL 12/02/2021 11:59 AM [facility] Comment: ATP III Classification of Triglycerides: ?<150 mg/dL: ??Normal ? 150 - 199 mg/dL: ??Borderline High ? 200 - 400 mg/dL: ??High ?>500 mg/dL: ??Very High Blood BLOOD SPECIMEN / Unknown Lab Venipuncture / Unknown 12/02/2021 10:26 AM LIQUEFIED NATURAL GAS OPERATOR 12/02/2021 11:31 AM [facility] Monica Quijano MD LAB - CHEMISTRY ORD ERABLES [facility] [address] [place] [address], [facility] [phone] documented in this encounter Visit Diagnoses Diagnosis Coronary artery disease of [place] artery of [place] heart with stable angina pectoris (HCC)- Primary documented in this encounter Care Teams Mixing And Dispensing Supervisor Relationship Specialty Start Date End Date Neva Holden MD [address] [place] [phone] PCP - General 05/06/20 05/25/23 documented as of this encounter
--- OUTSIDE RECORDS SUMMARY | 2024-11-12 05:25 | XMS_ITS | Encounter Summary ---
Author Organization [facility] Address [address] [facility] [place] [address] Care Team Providers Care Livestock Nutritionist Name Role Phone Dane Sullivan Primary Care Provider Reason for Visit * Reason Onset Date Comments Eye Problem 02/06/2020 Encounter Details Date Type Department Care Team (Late st Contact Info) Description 02/06/2020 Telephone [facility] [address] [place] [address] Lita Shah MD [address] [place] [phone] Eye Problem Social History Tobacco Use Types [...] PGY-3 Ophthalmology * Telephone Encounter - Ngozi Arreaga - 02/06/2020 11:23 AM CDT Pt is [...] st Contact Info) Description 01/19/2025 11:30 AM VENDING SERVICE TECHNICIAN Procedure visit [facility] - Urology [address] [place] [address] [address] [place] [phone] Jose Oliver MD [address] [place] [address] documented as of this encounter Visit Diagnoses Not on filedocumented in this encounter Care Teams Livestock Nutritionist Relationship Specialty Start Date End Date Dane Sullivan DO PCP - General 06/24/17 05/05/20 documented as of this encounter
--- OUTSIDE RECORDS SUMMARY | 2024-11-12 05:25 | XMS_ITS | Encounter Summary ---
Author Organization [facility] Address [address] [facility] [place] [address] Care Team Providers Care Room Inspector Name Role Phone Neva Holden MD Primary Care Provider [phone] Reason for Referral * Radiology Services (Routine) - Closed Specialty Diagnoses / Procedures Referred By Nacho t Referred To Contact Cardiac Cath Diagnoses Stable angina pectoris (HCC) Procedures CCL CARDIAC CATH LEFT Monica Quijano MD [address] [place] [place] [phone] [facility] Cardiac Family Resource Coordinator [address] [place] [address] Referral ID Status Reason Start Date Expiration Date Visits Re quested Visits Authorized [id number] Closed 10/18/2020 04/16/2021 1 1 HOUSE DIRECTOR Reason for Visit * Consult, Test & Treat (Routine) - Closed Specialty Diagnoses / Procedures Referred By Nacho brooks Referred To Contact Cardiology Diagnoses Abnormal result of other cardiovascular function study Neva Holden MD [address] [place] [address] Monica Quijano MD [address], [place] [address] Referral ID Status Reason Start Date Expiration Date Visits Re quested Visits Authorized [id number] Closed 09/11/2020 09/11/2021 1 1 Encounter Details Date Type Department Care Team (Late st Contact Info) Description 10/01/2020 10:00 AM WAREHOUSE DIRECTOR Office Visit [facility] Cardiology [address] [facility] [address] [place] [address] Monica Quijano MD Essential (primary) hypertension (Primary [...] Comments Blood Pressure 138/90 10/01/2020 9:39 AM WAREHOUSE DIRECTOR Pulse 86 10/01/2020 9:39 AM WAREHOUSE DIRECTOR Temperature - - Respiratory Rate - - Oxygen Saturation 97% 10/01/2020 9:39 AM WAREHOUSE DIRECTOR Inhaled Oxygen Concentration - - Weight 95.7 kg (211 lb) 10/01/2020 9:39 AM WAREHOUSE DIRECTOR Height 160 cm (5' 3 ) 10/01/2020 9:39 AM WAREHOUSE DIRECTOR Body Mass Index 37.38 10/01/2020 9:39 AM WAREHOUSE DIRECTOR documented in this encounter Patient Instructions * Patient Instructions* Monica Quijano MD - 10/01/2020 9:54 AM WAREHOUSE DIRECTOR Please start taking metoprolol succinate 100 mg daily. Please start taking Imdur 60 mg daily. Try really had to stop smoking, this is the most important thing you can do for your health. We will plan for a heart cath to be done at [facility] on . HOUSE DIRECTOR documented in this encounter Consult Notes * Monica Quijano MD - 10/01/2020 9:32 AM CST CARDIOLOGY CONSULTATION NOTE Patient: Rody Zaidi Age: [age] year old Date of : 1960 Date: 10/01/2020 Reason for consult: chest pain HISTORY: It was my pleasure to see Ms. Rody Zaidi in consultation at [facility] on 10/01/2020 forevaluation of her chest [...] calming herself done. She reports that previous associate professor of philosophy (switching due to insurance issues) did a [...] , Rfl: ??? vitamin D, ergocalciferol, (DRISDOL) 13218 UNITS capsule, , Disp: , Rfl: REVIEW [...] months after LHC, sooner PRN. DO [facility] HOUSE DIRECTOR documented in this encounter Plan of Treatment Upcoming Encounters Date Type Department Care Team (Late st Contact Info) Description 01/19/2025 11:30 AM WAREHOUSE DIRECTOR Procedure visit [facility] - Urology [address] [facility] [address] [place] [phone] Jose Oliver MD [facility] [place] [phone] documented as of this encounter Goals Goal [...] Diagnosis Comments PT-INR Routine 10/21/2020 8:12 AM WAREHOUSE DIRECTOR Essential (primary) hypertension Stable angina pectoris CBC W AUTO DIFFERENTIAL Routine 10/21/2020 8:12 AM WAREHOUSE DIRECTOR Essential (primary) hypertension Stable angina pectoris BASIC METABOLIC PANEL (CALCIUM TOTAL) Routine 10/21/2020 8:12 AM WAREHOUSE DIRECTOR Essential (primary) hypertension Stable angina pectoris PROC EKG IN CLINIC Routine 10/01/2020 9: 43 AM WAREHOUSE DIRECTOR Essential (primary) hypertension documented in this encounter Results * CCL CARDIAC CATH LEFT (10/24/2020 10:29 AM WAREHOUSE DIRECTOR) Anatomical Region Laterality Modality Chest X-Ray Angiograph y Narrative 11/05/2020 4:[address] [facility] Cardiac Catheterization Procedure Note Patient: Rody Zaidi Age: [age] year old Date of : 1960 Date of Admission: 10/24/2020 Procedure Date: 10/24/20 FELLOW / HOTEL FRONT OFFICE MANAGER: Mart Clinton ATTENDING PHYSICIAN: Dr. Deven [...] had chest pain with dyspnea. Coming for [facility] for evaluation. Also reported abnormal test in past but no image or report available. Per outside associate professor of philosophy Stress test done in 01/2020 was clinically [...] please review the procedure nurse documentation in [facility]. Total sedation administered as follows: [...] Deven Gonzalez MD Monica Quijano MD CARDIAC MANAGER CARGO RA DIANT * PT-INR (10/21/2020 8:12 AM WAREHOUSE DIRECTOR) INR 1.0 [facility] Comment: Reference Range ? 0.9-1.1 Moderate-intensity Warfarin Therapy 2.0-3.0 Higher-intensity Warfarin Therapy ?? 3.0-4.0 PT 10.1 9.0 - 11.5 sec [facility] Comment: For additional information, please refer to http://education.Carezone.com.Exuru!/faq/BYE896 (This link is being provided for informational/ educational purposes only.) REPORT COMMENT: FASTING:YES Test Performed at: [facility] ??[phone] GISELE JUSTICE MD Blood BLOOD SPECIMEN / Unknown 10/21/2020 8:12 AM WAREHOUSE DIRECTOR 10/21/2020 8:14 AM WAREHOUSE DIRECTOR Monica Quijano MD LAB - COAGULATION O RDERABLES [address] [address] * CBC WITH DIFFERENTIAL (10/21/2020 8:12 AM WAREHOUSE DIRECTOR) White Blood Cell Count 9.7 3.8 - [...] 0.5 % [facility] Comment: Test Performed at: [facility] ??[id number] JESSICA MANLEY DO,MPH Blood BLOOD SPECIMEN / Unknown 10/21/2020 8:12 AM WAREHOUSE DIRECTOR 10/21/2020 8:14 AM WAREHOUSE DIRECTOR Monica Quijano MD LAB - HEMATOLOGY OR DERABLES Performing Organization Address City/State/[facility] Co de Phone Number [facility] [address] [place] [address] * (ABNORMAL) BASIC METABOLIC PANEL (CALCIUM TOTAL) (10/21/2020 8:12 AM WAREHOUSE DIRECTOR) Pathologist [facility] Glucose 143(H) 65 - 99 mg/dL [facility] [...] approximately 13% higher for people identified as -Danish. eGFR by MDRD 80 > OR = [...] 10.4 mg/dL [facility] Comment: Test Performed at: [facility] [address] [place] [address] ??[phone] JESSICA MANLEY DO,MPH Blood BLOOD SPECIMEN / Unknown 10/21/2020 8:12 AM WAREHOUSE DIRECTOR 10/21/2020 8:14 AM WAREHOUSE DIRECTOR Monica Quijano MD LAB - CHEMISTRY ORD ERABLES [facility] [address] [place] [address] * EKG - Clinic Performed (10/01/2020 9:43 AM WAREHOUSE DIRECTOR) Monica Quijano MD ECG ORDERABLES documented in this encounter Visit Diagnoses Diagnosis Essential (primary) hypertension- Primary Unspecified essential hypertension Stable angina pectoris (HCC) Essential (primary) hypertension- Primary Unspecified essential hypertension PAD (peripheral artery disease) (HCC) Unspecified disorders of arteries and arterioles CAD in [place] artery Coronary atherosclerosis of [place] coronary artery documented in this encounter Care Teams Room Inspector Relationship Specialty Start Date End Date Neva Holden MD [address] [place] [phone] PCP - General 05/06/20 05/25/23 documented as of this encounter
--- OUTSIDE RECORDS SUMMARY | 2024-11-12 05:25 | XMS_ITS | Encounter Summary ---
Author Organization [facility] Address [address] [facility] [place] [address] Care Team Providers Care Combination Window Installer Name Role Phone Dane Sullivan Primary Care Provider Encounter Details Date Type Department Care Team (Latest Contact Info) Description 04/12/2015 Hospital Outpatient Visit [facility] - Orthopedics [address] [place] [address], [place] [address] Александр Sanchez MD [address] [place], [place] [phone] Discharge Disposition: Home or Self Care Social [...] st Contact Info) Description 01/19/2025 11:30 AM BONDING AGENT Procedure visit [facility] - Urology [address] [place] [address] [address] [place] [phone] Jose Oliver MD [address] [place] [address] [address] [place] [phone] documented as of this encounter Procedures Procedure [...] Cervicalgia documented in this encounter Care Teams Combination Window Installer Relationship Specialty Start Date End Date Dane Sullivan DO PCP - General 06/24/17 05/05/20 documented as of this encounter
--- OUTSIDE RECORDS SUMMARY | 2024-11-12 05:25 | XMS_ITS | Encounter Summary ---
Author Organization [facility] Address [address] [facility] [place] [address] Care Team Providers Care Hand Weaver Name Role Phone Neva Holden MD Primary Care Provider [phone] Encounter Details Date Type Department Care Team (Latest Contact Info) Description 10/06/2021 1:06 PM BRUSH FINISHER - 10/06/2021 3:19 PM BRUSH FINISHER Hospital Encounter [facility] PFT [address] [place] [phone] Damian Hager MD [address] [place] [phone] Discharge Disposition: Home or Self Care Social [...] COVID-19? No / Unsure 10/06/2021 12:48 PM BRUSH FINISHER documented as of this encounter Medications at [...] evening meal 12/27/2016 vitamin D, ergocalciferol, (DRISDOL) 17162 UNITS capsule Take 1 (one) capsule by [...] st Contact Info) Description 01/19/2025 11:30 AM BRUSH FINISHER Procedure visit [facility] - Urology [address] [place] [address] [address] [place] [phone] Jose Oliver MD [address] [place] [address] documented as of this encounter [...] filedocumented in this encounter Care Teams Hand Weaver Relationship Specialty Start Date End Date Neva Holden MD [address] [place] [phone] PCP - General 05/06/20 05/25/23 documented as of this encounter
--- OUTSIDE RECORDS SUMMARY | 2024-11-12 05:25 | XMS_ITS | Encounter Summary ---
Author Organization [facility] Address [address] [facility] [place] [address] Care Team Providers Care Packer Denture Name Role Phone Neva Holden MD Primary Care Provider [phone] Reason for Visit * Reason Onset Date Comments Procedure Question 10/15/2020 Encounter Details Date Type Department Care Team (Late Contact Info) Description 10/15/2020 Telephone [facility] Cardiology [address] [facility] [address] [place] [address] Monica Quijano MD Procedure Question Social History [...] continue plavix without holding. She verbalized understanding. TACKER documented in this encounter Plan of Treatment Upcoming Encounters Date Type Department Care Team (Late Contact Info) Description 01/19/2025 11:30 AM BOW TACKER Procedure visit [facility] - Urology [address] [place] [address] [address] [place] [address] Jose Oliver MD [address] [place] [address] documented as of this encounter Goals Goal [...] on filedocumented in this encounter Care Teams Packer Denture Relationship Specialty Start Date End Date Neva Holden MD [address] [place] [phone] PCP - General 05/06/20 05/25/23 documented as of this encounter
--- OUTSIDE RECORDS SUMMARY | 2024-11-12 05:25 | XMS_ITS | Encounter Summary ---
Author Organization [facility] Address [address] [facility] [place] [address] Care Team Providers Care Charter Boat Captain Name Role Phone Neva Holden MD Primary Care Provider [phone] Reason for Visit * Auth/Cert Specialty Diagnoses / Procedures Referred By Contac t Referred To Contact Diagnoses Stable angina pectoris (HCC) Procedures CCL CARDIAC CATH LEFT Referral ID Status Reason Start Date Expiration Date Visits Re quested Visits Authorized [id number] 1 1 Encounter Details Date Type Department Care Team (Latest Contact Info) Description 10/24/2020 5:57 AM GUEST SERVICE TEAM LEADER - 10/24/2020 4:54 PM GUEST SERVICE TEAM LEADER Hospital Encounter [facility] OP [address] [place] [address] Monica Quijano MD Cardiology Discharge Disposition: Home [...] COVID-19? No / Unsure 10/22/2020 8:01 AM GUEST SERVICE TEAM LEADER documented as of this encounter Last Filed Vital Signs Vital Sign Reading Time Taken Comments Blood Pressure 126/90 10/24/2020 4:30 PM GUEST SERVICE TEAM LEADER Pulse 92 10/24/2020 4:30 PM GUEST SERVICE TEAM LEADER Temperature 37.1 ??C (98.8 ??F) 10/24/2020 6:02 AM CS T Respiratory Rate 22 10/24/2020 4:30 PM GUEST SERVICE TEAM LEADER Oxygen Saturation 97% 10/24/2020 4:30 PM GUEST SERVICE TEAM LEADER Inhaled Oxygen Concentration - - Weight 91.4 kg (201 lb 9.6 oz) 10/24/2020 6:02 A M GUEST SERVICE TEAM LEADER Height 160 cm (5' 3 ) 10/24/2020 6:02 AM GUEST SERVICE TEAM LEADER Body Mass Index 35.71 10/24/2020 6:02 AM GUEST SERVICE TEAM LEADER documented in this encounter Discharge Instructions * Discharge Instructions* Ld Altamirano MD - 10/24/2020 1:58 PM GUEST SERVICE TEAM LEADER Post Cardiac catheterization care: .Going Home ? [...] a few hours apart. ? Severe pain. T SERVICE TEAM LEADER documented in this encounter Medications at Time [...] evening meal 12/27/2016 vitamin D, ergocalciferol, (DRISDOL) 28100 UNITS capsule Take 1 (one) capsule by [...] - 10/24/2020 9:58 AM CST ACT 256 T SERVICE TEAM LEADER * Karishma Concepcion RN - 10/24/2020 9:18 AM CST ACT 335 T SERVICE TEAM LEADER documented in this encounter H&P Notes * Ld Altamirano MD - 10/24/2020 7:34 AM CST CARDIAC WATER REUSE PROGRAM MANAGER PRE PROCEDURE APPROPRIATE USE CRITERIA TOOL History of Present Illness:She is a pleasant 59 year old female with a history of PVD (s/p BL iliacstenting, L CEA, R??), DMII, active tobacco use. Patient reports 6 months of chest pain. She is on two antianginal and still had chest pain with dyspnea. Coming for [facility] for evaluation. Also reported abnormal test in past but no image or report available. Per outside filleter Stress test done in 01/2020 was clinically [...] FPD UTD ??? vitamin D, ergocalciferol, (DRISDOL) 17817 UNITS capsule Anti-Anginal Medication within 2 Weeks: [...] for performance of procedure. Monitoring: heart rate, environmental monitoring technician, continuous pulse oximetry, frequent blood pressure checks,level of consciousness, IV access, constant attendance by RN until patient recovered, and emergencyairway equipment available. Based on the above criteria, I believe that patient meets clinical indications for a cardiac catheterization. Ld Altamirano MD 10/24/2020 7:34 AM T SERVICE TEAM LEADER documented in this encounter Procedure Notes * Chantale Delgado MD - 10/24/2020 10:04 AM CST Unit that procedure is to be preformed: poultry farm laborer Pre-Procedure Diagnosis: Angina Procedure: [facility] Post Procedure Diagnosis: Non obstructive CAD, [...] returned to pre-procedure baseline. Discharge plan: Home T SERVICE TEAM LEADER * Ld Altamirano MD - 10/24/2020 7:33 [...] immediately prior to sedation and/or analgesia: Yes T SERVICE TEAM LEADER documented in this encounter OR Notes * Brief Op Note - Chantale Delgado MD - 10/24/2020 10:03 AM GUEST SERVICE TEAM LEADER Brief Op Note Procedure: [facility] Patient Name: Rody Zaidi Date of Service: 10/24/2020 Pre-Op Diagnosis: Angina Post-Op Diagnosis: Non obstructive CAD, negative DFR to proximal LAD. Vault Installer(s): Mart Peña MD; Ld Altamirano MD Anesthesia Type: Moderate Complications: none Findings: Non obstructive CAD, negative DFR to proximal LAD. EBL: minimal blood loss Recs: Bedrest 4 hrs. Chantale Delgado MD T SERVICE TEAM LEADER documented in this encounter Plan of Treatment Upcoming Encounters Date Type Department Care Team (Late st Contact Info) Description 01/19/2025 11:30 AM GUEST SERVICE TEAM LEADER Procedure visit [facility] - Urology [address] [place] [address] [address] [place] [phone] Jose Oliver MD [address] [place] [phone] documented as of this encounter Goals Goal [...] LAB RESULTS ORDER 11/02/2020 6:0 6 PM GUEST SERVICE TEAM LEADER CARDIAC PROCEDURE ORDER 11/02/2020 4:17 PM GUEST SERVICE TEAM LEADER CCL CARDIAC CATH LEFT Routine 10/24/2020 10:29 AM GUEST SERVICE TEAM LEADER Stable angina pectoris GLUCOSE - POINT OF CARE Routine 10/24/2020 6:40 AM GUEST SERVICE TEAM LEADER documented in this encounter Results * LAB RESULTS ORDER (11/02/2020 6:06 PM GUEST SERVICE TEAM LEADER) Narrative 11/02/2020 6:06 PM GUEST SERVICE TEAM LEADER Ordered by an unspecified provider. Scanned Document LAB - THERAPEUTIC DR UG MONITORING ORDERABLES * CARDIAC PROCEDURE ORDER (11/02/2020 4:17 PM GUEST SERVICE TEAM LEADER) Narrative 11/02/2020 4:17 PM GUEST SERVICE TEAM LEADER Ordered by an unspecified provider. Scanned Document CARDIAC SERVICES ORD ERABLES * (ABNORMAL) GLUCOSE - POINT OF CARE (10/24/2020 6:40 AM GUEST SERVICE TEAM LEADER) [facility] Glucose WB/POC 136(H) 70 - 115 mg/dL 10/24/2020 10:24 AM GUEST SERVICE TEAM LEADER [facility] Specimen Type Venous 10/24/2020 10:24 AM GUEST SERVICE TEAM LEADER [facility] Blood BLOOD SPECIMEN / Unknown 10/24/2020 6:40 AM GUEST SERVICE TEAM LEADER 10/24/2020 10:24 AM GUEST SERVICE TEAM LEADER Monica Quijano MD LAB - POINT OF CARE ORDERABLES [facility] [address] [address], [facility] [phone] documented in this encounter Visit Diagnoses Diagnosis Essential (primary) hypertension- Primary Unspecified essential hypertension PAD (peripheral artery disease) (HCC) Unspecified disorders of arteries and arterioles CAD in [place] artery Coronary atherosclerosis of [place] coronary artery CAD in [place] artery Coronary atherosclerosis of [place] coronary artery documented in this encounter Administered Medications Inactive Administered Medications - up to 3 most recent administrations Medication Order MAR Action Action Date Dose Rate Site 0.9% NaCl infusion Intravenous, CONTINUOUS PRN, Starting on [place] 10/24/20 at 0808, Until [place] 10/24/20 at 1006 $ New Bag/Syringe 10/24/2020 8:08 AM GUEST SERVICE TEAM LEADER 10 mL/hr 10 mL/hr 0.9% NaCl injection [...] at 1145 $ Given 10/24/2020 11:41 AM GUEST SERVICE TEAM LEADER 1 mg fentaNYL (PF) (SUBLIMAZE) injection Intravenous, ONCE PRN, Starting on [place] 10/24/20 at 0832, Until [place] 10/24/20 at 0928 $ Given 10/24/2020 9:28 AM GUEST SERVICE TEAM LEADER 50 mcg $ Given 10/24/2020 8:32 AM GUEST SERVICE TEAM LEADER 25 mcg fentaNYL (PF) (SUBLIMAZE) injection Intravenous, ONCE PRN, Starting on [place] 10/24/20 at 1025, Until [place] 10/24/20 at 1025 $ Given 10/24/2020 10:25 AM GUEST SERVICE TEAM LEADER 25 mcg heparin injection Intravenous, ONCE PRN, Starting on [place] 10/24/20 at 0906, Until [place] 10/24/20 at 0906 $ Given 10/24/2020 9:06 AM GUEST SERVICE TEAM LEADER 7,300 Units heparinized saline 2 units/ml infusion Intravenous, CONTINUOUS PRN, Starting on [place] 10/24/20 at 0808, Until [place] 10/24/20 at 1007 $ New Bag/Syringe 10/24/2020 8:08 AM GUEST SERVICE TEAM LEADER 1,000 mL HYDROcodone-acetaminophen (NORCO) 5-325 MG tablet 1 tablet 1 tablet, Oral, ONCE, 1 dose, On [place] 12/10/20 at 1445, Post-op $ Given 10/24/2020 2:32 PM GUEST SERVICE TEAM LEADER 1 tablet iopamidol (ISOVUE 370) 76 % contrast Intravenous, ONCE PRN, Starting on [place] 10/24/20 at 0925, Until [place] 10/24/20 at 0925 $ Given 10/24/2020 9:25 AM GUEST SERVICE TEAM LEADER 80 mL lidocaine (XYLOCAINE) 1 % injection Infiltration, ONCE PRN, Starting on [place] 10/24/20 at 0833, Until [place] 10/24/20 at 0846 $ Given 10/24/2020 8:46 AM GUEST SERVICE TEAM LEADER 8 mL $ Given 10/24/2020 8:33 AM GUEST SERVICE TEAM LEADER 2 mL midazolam (VERSED) injection Intravenous, ONCE PRN, Starting on [place] 10/24/20 at 0832, Until [place] 10/24/20 at 0832 $ Given 10/24/2020 8:32 AM GUEST SERVICE TEAM LEADER 0.5 mg nitroGLYCERIN 100 mcg/ml injection Intra-coronary, ONCE PRN, Starting on [place] 10/24/20 at 0835, Until [place] 10/24/20 at 0835 $ Given 10/24/2020 8:35 AM GUEST SERVICE TEAM LEADER 100 mcg documented in this encounter Active and Recently Administered Medications Times are shown in GUEST SERVICE TEAM LEADER. Scheduled Medication Order 10/22/2020 10/23/2020 10/24/2020 0.9% [...] patency. documented in this encounter Care Teams Charter Boat Captain Relationship Specialty Start Date End Date Neva Holden MD [facility] [place] [address] PCP - General 05/06/20 05/25/23 documented as of this encounter
--- OUTSIDE RECORDS SUMMARY | 2024-11-12 05:25 | XMS_ITS | Encounter Summary ---
Author Organization [facility] Address [address] [place] [address] Care Team Providers Care Materials Planner Name Role Phone Neva Holden MD Primary Care Provider [phone] Reason for Visit * Reason Onset Date Comments Cardiac Rehab 12/04/2020 Encounter Details Date Type Department Care Team (Late st Contact Info) Description 12/04/2020 Telephone [facility] [address] [place] [address] Chelsie Del Rio RN Cardiac Rehab Social [...] Del Rio RN - 12/04/2020 10:14 AM ELECTRIC METER REPAIRER Pt wants to participate in home based cardiac rehab program. [employer] code to sign up for [employer] sent to patients email and pt aware. Pt stated she had a stent placed in her leg and her walking activity has improved including 13 lb wt loss since stent was placed. Encouraged heart healthy lifestyle and will follow up when home based rehab launched. TRIC METER REPAIRER documented in this encounter Plan of Treatment Upcoming Encounters Date Type Department Care Team (Late st Contact Info) Description 01/19/2025 11:30 AM ELECTRIC METER REPAIRER Procedure visit [facility] - Urology [address] [place] [address] [address] [place] [address] Jose Oliver MD [address] [address] documented as of this encounter Goals Goal [...] on filedocumented in this encounter Care Teams Materials Planner Relationship Specialty Start Date End Date Neva Holden MD [address] [place] [phone] PCP - General 05/06/20 05/25/23 documented as of this encounter
--- OUTSIDE RECORDS SUMMARY | 2024-11-12 05:25 | XMS_ITS | Encounter Summary ---
Author Organization [facility] Address [address] [facility] [place] [address] Care Team Providers Care Montessori Teacher Name Role Phone Neva Holden MD Primary Care Provider [phone] Reason for Visit * Reason Onset Date Comments Procedure Prior Auth Request 10/18/2020 Encounter Details Date Type Department Care Team (Late st Contact Info) Description 10/18/2020 Telephone [facility] [address] [facility] [address] [place] [address] Jacquelin Malloy RN Procedure Prior Auth Request [...] COVID-19? No / Unsure 10/22/2020 8:01 AM CLASSROOM MONITOR documented as of this encounter Miscellaneous Notes * Telephone Encounter - Jacquelin Malloy RN - 10/18/2020 10:29 AM CST Received denial notice for patient's heart cath. Cath scheduled on 10/24. Contacted reconsideration line and scheduled peer to peer at 1 pm today. They will contact office as first line to reach Dr. Quijano, and cell number as second line. SROOM MONITOR documented in this encounter Plan of Treatment Upcoming Encounters Date Type Department Care Team (Late st Contact Info) Description 01/19/2025 11:30 AM CLASSROOM MONITOR Procedure visit [facility] - Urology [address] [facility] [address] [place] [address] Jose Oliver MD [address] [place] [address] documented as of this encounter Goals Goal [...] on filedocumented in this encounter Care Teams Montessori Teacher Relationship Specialty Start Date End Date Neva Holden MD [address] [place] [phone] PCP - General 05/06/20 05/25/23 documented as of this encounter
--- OUTSIDE RECORDS SUMMARY | 2024-11-12 05:25 | XMS_ITS | Encounter Summary ---
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 After 6-8 weeks on this medicine, next time you go to [facility] please get your lipid panel checked. Keep working on quitting smoking! Keep up the good work with diet and exercise and reducing stress! CHER HELPER documented in this encounter Progress Notes * [...] see . Rody Zaidi in consultation at [facility] on 12/03/2020 for evaluation of [...] calming herself done. 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 vitamin D, ergocalciferol, (DRISDOL) 97898 UNITS capsule, , Disp: , Rfl: DATA [...] Normal left lower extremity arterial physiologic study. CHER HELPER * Snow Kulkarni - 12/03/2020 9:21 AM CST Legs are cramping from crestor. Pt would like to maybe try atorvastatin again. 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
--- OUTSIDE RECORDS SUMMARY | 2024-11-12 05:25 | XMS_ITS | Encounter Summary ---
Author Organization [facility] Address [address] [facility] [place] [address] Care Team Providers Care Fiberglass Boat Assembly Supervisor Name Role Phone Neva Holden MD Primary Care Provider [phone] Reason for Visit * Reason Comments Establish Care Diverticulitis Encounter Details Date Type Department Care Team ([facility] Contact Info) Description 08/29/2020 8:00 AM CDT Office Visit [facility] - GI [address] [facility], [place] [phone] Benito Gutierrez MD [address] [place] [address] Internal hemorrhoids (Primary Dx) Social History Tobacco [...] the physicians and other specialists at the [facility] Gastroenterology and Hepatology clinic today. Following your visit, you may receive a Press CliniCast survey via email or U.S. Mail. We [...] please call (hospital main number), ask the braiding operator to call the gastroenterology fellow diesel stationary engineer. Emergency; call 911 or go to your [...] Need to have screening for HCV. Sincerely, Benito Gutierrez MD documented in this encounter Progress [...] non tender Labs and imaging per [facility] note. I agree with the assessment and [...] , Rfl: ??? vitamin D, ergocalciferol, (DRISDOL) 25820 UNITS capsule, , Disp: , Rfl: Assessment/Plan: [...] HCV screening with PCP Amber Nevarez MD Belt Picker of Internal Medicine Division of Gastroenterology and Hepatology * Benito Gutierrez MD - 08/29/2020 8:04 AM CDT Images from the original note were not included. GASTROENTEROLOGY OUTPATIENT - Consult Note [facility] PRIMARY CARE PHYSICIAN: Neva Holden MD REFERRING [...] MEQ tablet ??? vitamin D, ergocalciferol, (DRISDOL) 78500 UNITS capsule No current facility-administered medications on [...] Imdur. She is requesting referral to another sales and leasing consultant. She continues to have episodes of CP [...] Hepatology Fellow Division of Gastroenterology and Hepatology [facility] Pager: [phone] documented in this encounter Plan of Treatment Upcoming Encounters Date Type Department Care Team (Late st Contact Info) Description 01/19/2025 11:30 AM MITER GRINDER OPERATOR Procedure visit [facility] - Urology [address] [place] [address] [address] [place] [address] Jose Oliver MD [address] [place] [phone] documented as of this encounter Goals Goal [...] complication documented in this encounter Care Teams Fiberglass Boat Assembly Supervisor Relationship Specialty Start Date End Date Neva Holden MD [address] [place] [phone] PCP - General 05/06/20 05/25/23 documented as of this encounter
--- OUTSIDE RECORDS SUMMARY | 2024-11-12 05:25 | XMS_ITS | Encounter Summary ---
Author Organization [facility] Address [address] [facility] [place] [address] Care Team Providers Care Public Affairs Director Name Role Phone Neva Holden MD Primary Care Provider [phone] Reason for Visit * Reason Comments Refill Request Encounter Details Date Type Department Care Team (Late Contact Info) Description 08/11/2021 Refill [facility] [address] [facility] [address] [place] [address] Monica Quijano MD Refill Request Social History [...] (Late Contact Info) Description 01/19/2025 11:30 AM OPERATOR AND TRUCK DRIVER Procedure visit [facility] Urology [address] [place] [address] [address] [place] [phone] Jose Oliver MD [address] [place] [phone] documented as of this encounter Goals Goal [...] on filedocumented in this encounter Care Teams Public Affairs Director Relationship Specialty Start Date End Date Neva Holden MD [address] [place] [phone] PCP - General 05/06/20 05/25/23 documented as of this encounter
--- OUTSIDE RECORDS SUMMARY | 2024-11-12 05:25 | XMS_ITS | Encounter Summary ---
Author Organization [facility] Address [address] [facility] [place] [address] Care Team Providers Care Changer Fixer Name Role Phone Neva Holden MD Primary Care Provider [phone] Reason for Referral * Radiology Services (Routine) - Closed Specialty Diagnoses / Procedures Referred By Nacho brooks Referred To Contact Vascular Lab Diagnoses Bilateral carotid artery stenosis Procedures VAS CAROTID DUPLEX BILATERAL Jose A Clark MD [facility] [facility] 2L [place] [address] [facility] Vascular [address] [place] [address] Referral ID Status Reason Start Date Expiration Date Visits Re quested Visits Authorized [id number] Closed 10/03/2020 10/03/2021 1 1 SPOTTER Reason for Visit * Reason Comments Post-Op Encounter Details Date Type Department Care Team (Late st Contact Info) Description 10/03/2020 8:30 AM JOB SPOTTER Office Visit [facility] Vascular Surgery [address] [facility], [place] [address] Jose A Clark MD [address] [facility] [address] [place] [phone] Bilateral carotid artery stenosis (Primary Dx) Social [...] Comments Blood Pressure 106/73 10/03/2020 8:29 AM JOB SPOTTER Pulse 79 10/03/2020 8:29 AM JOB SPOTTER Temperature 36.2 ??C (97.2 ??F) 10/03/2020 8:29 AM CS T Respiratory Rate 20 10/03/2020 8:29 AM JOB SPOTTER Oxygen Saturation 97% 10/03/2020 8:29 AM JOB SPOTTER Inhaled Oxygen Concentration - - Weight 93.9 kg (207 lb) 10/03/2020 8:29 AM JOB SPOTTER Height 160 cm (5' 3 ) 10/03/2020 8:29 AM JOB SPOTTER Body Mass Index 36.67 10/03/2020 8:29 AM JOB SPOTTER documented in this encounter Patient Instructions * Patient Instructions* Mike Gamez - 10/03/2020 9:01 AM JOB SPOTTER Someone will call you to schedule your vascular labs. We will call you to let you know those results. As long as those are okay, we will see you back in 3 months with repeat vascular testing. Call the office with any questions or concerns [phone] We have written you a prescription for nicotine lozenges, though these may not be covered by your insurance since they are over the counter. 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 vitamin D, ergocalciferol, (DRISDOL) 18636 UNITS capsule, , Disp: , Rfl: Review [...] Clark. Mike Gamez, 3 10/03/2020 8:43 AM SPOTTER Associated attestation - Jose A Clark MD - 10/04/2020 7:44 AM JOB SPOTTER I have verified the documentation of the [...] Contact Info) Description 01/19/2025 11:30 AM JOB SPOTTER Procedure visit [facility] - Urology [address] [place] [address] [address] [place] [address] Jose Oliver MD [address] [place] [phone] documented as of this encounter Goals Goal [...] VAS CAROTID DUPLEX BILATERAL (10/22/2020 9:27 AM JOB SPOTTER) Anatomical Region Laterality Modality Neck Intravascular Ul trasound 10/22/2020 9:04 AM JOB SPOTTER Narrative Procedure Note Eric Costa MD - [...] infarction documented in this encounter Care Teams Changer Fixer Relationship Specialty Start Date End Date Neva Holden MD [address] [place] [phone] PCP - General 05/06/20 05/25/23 documented as of this encounter
--- OUTSIDE RECORDS SUMMARY | 2024-11-12 05:25 | XMS_ITS | Encounter Summary ---
Author Organization [facility] Address [address] [facility] [place] [address] Care Team Providers Care Drywall Foreman Name Role Phone Neva Holden MD Primary Care Provider [phone] Reason for Visit * Reason Onset Date Comments Medication Prior Auth Request 03/04/2021 Re patha Encounter Details Date Type Department Care Team (Late st Contact Info) Description 03/04/2021 Telephone [facility] [address] [facility] [address] [place] [address] Monica Quijano MD Medication Prior Auth Request [...] message from patient - script sent to [facility]. Fax sent to [place] through [employer] INVESTMENTSs to start PA. Patient aware and will [...] st Contact Info) Description 01/19/2025 11:30 AM PORT CRANE OPERATOR Procedure visit [facility] - Urology [address] [facility] [address] [place] [address] Jose Oliver MD [facility] [place] [address] documented as of this encounter Goals Goal [...] vascular disease) (HCC) Coronary artery disease involving [place]scarville heart without angina pectoris, unspecified vessel or [...] factors. REPORT COMMENT: FASTING:YES Test Performed at: [facility] [id number] [place] [address] ??[id number] JESSICA MANLEY DO,MPH Blood BLOOD SPECIMEN / Unknown 03/20/2021 12:03 PM CDT 03/20/2021 12:04 PM CDT Monica Quijano MD LAB - CHEMISTRY ORD ERABLES [facility] [address] [place] [address] documented in this encounter Visit Diagnoses Diagnosis Hyperlipidemia, unspecified hyperlipidemia type- Primary PVD (peripheral vascular disease) (HCC) Peripheral vascular disease, unspecified Coronary artery disease involving [place] heart without angina pectoris, unspecified vessel or lesion type documented in this encounter Care Teams Drywall Foreman Relationship Specialty Start Date End Date Neva Holden MD [address] [place] [phone] PCP - General 05/06/20 05/25/23 documented as of this encounter
--- OUTSIDE RECORDS SUMMARY | 2024-11-12 05:25 | XMS_ITS | Encounter Summary ---
Author Organization [facility] Address [address] [facility] [place] [address] Care Team Providers Care Contract Programmer Name Role Phone Neva Holden MD Primary Care Provider [phone] Reason for Visit * Reason Onset Date Comments Order 02/18/2021 Encounter Details Date Type Department Care Team (Late Contact Info) Description 02/18/2021 Telephone [facility] [address] [facility] [address] [place] [address] Monica Quijano MD Order Social History Tobacco [...] requesting that lab order be sent to [facility] as this is closer to her home. She plans to have lab drawn prior to upcoming appointment. Order changed and patient notified. documented in this encounter Plan of Treatment Upcoming Encounters Date Type Department Care Team (Late Contact Info) Description 01/19/2025 11:30 AM INTEGRATION SOFTWARE DEVELOPER Procedure visit [facility] [address] [place] [address] Jose Oliver MD [address] [place] [address] documented as of this encounter Goals Goal [...] 9:31 AM CDT Coronary artery disease of [place]ag[place] artery of [place]ag[place] heart with stable angina pectoris (HCC) documented [...] LDL-C. James SS et al. LB. 2013;310(19): 7360-6149 (http://education.CreditPoint Software/faq/DSM944) CHOL/HDLC RATIO 7.4(H) <5.0 (calc) [facility] Non HDL Cholesterol 199(H) <130 mg/dL (calc) [facility] Comment: For patients with diabetes plus 1 major ASCVD risk factor, treating to a non-HDL-C goal of <100 mg/dL (LDL-C of <70 mg/dL) is considered a therapeutic option. REPORT COMMENT: FASTING:YES Test Performed at: [facility] [address] [place], [place] ??[phone] JESSICA MANLEY DO,MPH Blood BLOOD SPECIMEN / Unknown 02/20/2021 9:31 AM CDT 02/20/2021 9:32 AM CDT Monica Quijano MD LAB - CHEMISTRY ORD ERABLES [facility] [address] [place] [address] documented in this encounter Visit Diagnoses Diagnosis Coronary artery disease of shag[place] artery of [place] heart with stable angina pectoris (HCC)- Primary documented in this encounter Care Teams Contract Programmer Relationship Specialty Start Date End Date Neva Holden MD [address] [place] [phone] PCP - General 05/06/20 05/25/23 documented as of this encounter
--- OUTSIDE RECORDS SUMMARY | 2024-11-12 05:25 | XMS_ITS | Encounter Summary ---
Author Organization [facility] Address [address] [facility] [place] [address] Care Team Providers Care Floral Designer Salesperson Name Role Phone Neva Holden MD Primary Care Provider [phone] Reason for Visit * Radiology Services (Routine) - Closed Specialty Diagnoses / Procedures Referred By Nacho t Referred To Contact Vascular Lab Diagnoses Peripheral vascular disease with claudication (HCC) Procedures VAS ARTERIAL ANKLE ARM INDEX VAS ARTERIAL MULTILEVEL LE Asa Mcnamara MD Three [facility]. [facility] [address] [place] [address] Referral ID Status Reason Start Date Expiration Date Visits Re quested Visits Authorized [id number] Closed 06/17/2020 06/17/2021 1 1 Encounter Details Date Type Department Care Team (Latest Contact Info) Description 07/10/2020 12:31 PM CDT - 07/10/2020 11:59 PM CDT Hospital Encounter [facility] VASCULAR [address] [place] [address] Leo Tamayo MD [address] [place] [address] [address] [place] [address] Discharge Disposition: Home or Self Care [...] evening meal 12/27/2016 vitamin D, ergocalciferol, (DRISDOL) 92277 UNITS capsule Take 1 (one) capsule by [...] st Contact Info) Description 01/19/2025 11:30 AM DERRICK HELPER Procedure visit [facility] - Urology [address] [place] [address] [address] [place] [address] Jose Oliver MD [address] [place] [address] documented as of this encounter Procedures Procedure [...] unspecified documented in this encounter Care Teams Floral Designer Salesperson Relationship Specialty Start Date End Date Neva Holden MD [address] [place] [phone] PCP - General 05/06/20 05/25/23 documented as of this encounter
--- OUTSIDE RECORDS SUMMARY | 2024-11-12 05:25 | XMS_ITS | Encounter Summary ---
Author Organization [facility] Address [address] [facility] [place] [address] Care Team Providers Care Java Developer With Security Clearance Name Role Phone Dane Sullivan DO Primary Care Provider Encounter Details Date Type Department Care Team (Latest Contact Info) Description 04/12/2015 Hospital Outpatient Visit [facility] [address] [facility], [place] [address] Александр Sanchez MD [address] [place], [place] [phone] Discharge Disposition: Home or Self Care Social [...] st Contact Info) Description 01/19/2025 11:30 AM WINCH STRIPPER Procedure visit [facility] [address] [place] [address] [address] [place] [phone] Jose Oliver MD [facility]5 [facility] 2L [place] [phone] documented as of this encounter Visit Diagnoses Not on filedocumented in this encounter Care Teams Java Developer With Security Clearance Relationship Specialty Start Date End Date Dane Sullivan DO PCP - General 06/24/17 05/05/20 documented as of this encounter
--- OUTSIDE RECORDS SUMMARY | 2024-11-12 05:25 | XMS_ITS | Encounter Summary ---
Author Organization [facility] Address [address] [place] [address] Care Team Providers Care Linux Vmware Administrator Name Role Phone Neva Holden MD Primary Care Provider [phone] Reason for Visit * Radiology Services (Routine) - Closed Specialty Diagnoses / Procedures Referred By Nacho brooks Referred To Contact Vascular Lab Diagnoses Peripheral vascular disease with claudication (HCC) Procedures VAS DILEEP ABD DOPPLER AO IVC ILIAC US AORTA IVC ILIAC DOPPL COMP Asa Mcnamara MD [address] [address] Referral ID Status Reason Start Date Expiration Date Visits Re quested Visits Authorized [id number] Closed 06/17/2020 06/17/2021 1 1 Encounter Details Date Type Department Care Team (Latest Contact Info) Description 07/10/2020 12:30 PM CDT Hospital Encounter [facility] VASCULAR US [address] [place] [address] Leo Tamayo MD [address] [place] [address] [place] [phone] Discharge Disposition: Home or Self Care [...] evening meal 12/27/2016 vitamin D, ergocalciferol, (DRISDOL) 81055 UNITS capsule Take 1 (one) capsule by [...] st Contact Info) Description 01/19/2025 11:30 AM MULTIMEDIA SERVICES COORDINATOR Procedure visit [facility] - Urology [address] [place] [address] [address] [place] [address] Jose Oliver MD [address] [place] [address] documented as of this encounter Procedures Procedure [...] unspecified documented in this encounter Care Teams Linux Vmware Administrator Relationship Specialty Start Date End Date Neva Holden MD [address] [place] [phone] PCP - General 05/06/20 05/25/23 documented as of this encounter
--- OUTSIDE RECORDS SUMMARY | 2024-11-12 05:25 | XMS_ITS | Encounter Summary ---
Author Organization [facility] Address [address] [facility] [place] [address] Care Team Providers Care It Project Lead Name Role Phone Neva Holden MD Primary Care Provider [phone] Encounter Details Date Type Department Care Team [...] st Contact Info) Description 01/19/2025 11:30 AM OFFICE ADMINISTRATIVE ASSISTANT Procedure visit [facility] Urology [address] [place] [address] [address] [place] [address] Jose Oliver MD [address] [place] [phone] documented as of this encounter Visit Diagnoses Not on filedocumented in this encounter Care Teams It Project Lead Relationship Specialty Start Date End Date Neva Holden MD [address] [place] [phone] PCP - General 05/06/20 05/25/23 documented as of this encounter
--- OUTSIDE RECORDS SUMMARY | 2024-11-12 05:25 | XMS_ITS | Encounter Summary ---
Author Organization [facility] Address [address] [facility] [place] [address] Care Team Providers Care Painting Manager Name Role Phone Neva Holden MD Primary Care Provider [phone] Reason for Referral * Procedure (Routine) - Closed Specialty Diagnoses / Procedures Referred By Contac t Referred To Contact Pulmonary Disease Diagnoses Acute exacerbation of chronic obstructive pulmonary disease (COPD) (HCC) Tobacco dependence CATHERINE (obstructive sleep apnea) Procedures COMPLETE PFT W/WO BRONCHODILATOR Damian Hager MD [address] [place] [address] [place] [address] [facility] Pft [address] [place] [address] Referral ID Status Reason Start Date Expiration Date Visits Re quested Visits Authorized [id number] Closed 07/30/2021 07/30/2022 1 1 Encounter Details Date Type Department Care Team (Late st Contact Info) Description 07/30/2021 10:00 AM CDT Office Visit [facility] Pul[facility] Critical [facility] [address], [place] [address] Damian Hager MD [address] [place] [address] [place] [address] Acute exacerbation of chronic obstructive [...] Hager MD - 07/30/2021 10:00 AM CDT [facility] Department of Pulmonary, Critical Care, and Sleep [...] mL 2 ??? vitamin D, ergocalciferol, (DRISDOL) 28792 UNITS capsule No facility-administered encounter medications on [...] of Pulmonary, Critical Care, and Sleep Medicine [facility] documented in this encounter Plan of Treatment Upcoming Encounters Date Type Department Care Team (Late st Contact Info) Description 01/19/2025 11:30 AM SERVICER TRAVEL TRAILERS Procedure visit [facility] - Urology [address] [place] [address] Rd [address] [place] [address] Jose Oliver MD [address] [facility] [place] [phone] documented as of this encounter Goals Goal [...] * SIX MINUTE WALK (10/06/2021 1:05 PM SERVICER TRAVEL TRAILERS) Impressions Rose Marie rOo MD - 10/06/2021 1:05 PM SERVICER TRAVEL TRAILERS [facility] DEPARTMENT OF PULMONARY, CRITICAL CARE, AND [...] Marie Oro MD - 10/06/2021 1:05 PM SERVICER TRAVEL TRAILERS Mary Benson MD ? 10/11/2021 ??4:46 PM Damian Hager MD RESPIRATORY THERAPY ORDERABLES * PFT OXYGEN DESATURATION STUDY (10/06/2021 1:05 PM SERVICER TRAVEL TRAILERS) Impressions Rose Marie Oro MD - 10/06/2021 1:05 PM SERVICER TRAVEL TRAILERS [facility] DEPARTMENT OF PULMONARY, CRITICAL CARE, AND [...] Marie Oro MD - 10/06/2021 1:05 PM SERVICER TRAVEL TRAILERS Mary Benson MD ? 10/11/2021 ??4:46 PM Damian Hager MD PFT ORDERABLES * COMPLETE PFT W/WO BRONCHODILATOR (10/06/2021 1:05 PM SERVICER TRAVEL TRAILERS) Impressions Rose Marie Oro MD - 10/06/2021 1:05 PM SERVICER TRAVEL TRAILERS [facility] DEPARTMENT OF PULMONARY, CRITICAL CARE, AND [...] Medicine [facility] I have personally reviewed and intepreted the results of the study and made any necessary edits to the final impression of the fellow. Rose Marie Oro MD Narrative Rose Marie Oro MD - 10/06/2021 1:05 PM SERVICER TRAVEL TRAILERS Mary Benson MD ? 10/11/2021 ??4:46 PM [...] (pediatric) documented in this encounter Care Teams Painting Manager Relationship Specialty Start Date End Date Neva Holden MD [address] [place] [phone] PCP - General 05/06/20 05/25/23 documented as of this encounter
--- OUTSIDE RECORDS SUMMARY | 2024-11-12 05:25 | XMS_ITS | Encounter Summary ---
Author Organization [facility] Address [address] [facility] [place] [address] Care Team Providers Care Stationary Engineer Name Role Phone Neva Holden MD Primary Care Provider [phone] Reason for Visit * Reason Comments Refill Request Encounter Details Date Type Department Care Team (Late Contact Info) Description 08/13/2021 Refill [facility] Cardiology [address] [facility] [address] [place] [address] Monica Quijano MD Refill Request Social History [...] (Late Contact Info) Description 01/19/2025 11:30 AM TRAILER MECHANIC Procedure visit [facility] - Urology [address] [place] [address] [address] [place] [phone] Jose Oliver MD [address] [place] [phone] documented as of this encounter Goals Goal [...] on filedocumented in this encounter Care Teams Stationary Engineer Relationship Specialty Start Date End Date Neva Holden MD [address] [place] [phone] PCP - General 05/06/20 05/25/23 documented as of this encounter
--- OUTSIDE RECORDS SUMMARY | 2024-11-12 05:25 | XMS_ITS | Encounter Summary ---
Author Organization [facility] Address [address] [facility] [place] [address] Care Team Providers Care Apron Man Name Role Phone Dane Sullivan Primary Care Provider Reason for Visit * Reason Comments Follow-up Consultation Encounter Details Date Type Department Care Team (Late st Contact Info) Description 02/09/2020 10:30 AM CDT Office Visit [facility] Ophthalmology [address] [place] [address] Tyrone Zuniga MD Blurred vision, bilateral (Primary [...] tablet 11 ??? vitamin D, ergocalciferol, (DRISDOL) 21085 UNITS capsule No current facility-administered medications for this visit. Allergies Allergen Reactions ??? Risperidone Other Reported her face getting swollen ??? Haloperidol Other unknown ??? Penicillins Other unknown No past medical history on file. Past Surgical History: Procedure Laterality Date ??? Cholecystectomy 2006 ??? HX C SECTION CLASSIC 1989 ??? HX CAROTID ENDARDECTOMY 2014 ??? HX TUBAL LIGATION 1989 ??? [place] FOOT/TOES SURGERY PROC UNLISTED ??? Tympanostomy 2014 [...] drusen OS: extended large soft drusen Assessment/Plan Rody Zaidi is a 59 year old [...] st Contact Info) Description 01/19/2025 11:30 AM PATROL MOTHER Procedure visit [facility] - Urology [address] [place] [address] [address] [place] [address] Jose Oliver MD [address] [place] [address] documented as of this encounter Procedures Procedure [...] disturbances documented in this encounter Care Teams Apron Man Relationship Specialty Start Date End Date Dane Sullivan DO PCP - General 06/24/17 05/05/20 documented as of this encounter
--- OUTSIDE RECORDS SUMMARY | 2024-11-12 05:25 | XMS_ITS | Encounter Summary ---
Author Organization [facility] Address [address] [facility] [place] [address] Care Team Providers Care Full Stack Web Developer Name Role Phone Neva Holden MD Primary Care Provider Reason for Visit * Reason Comments Refill Request Encounter Details Date Type Department Care Team (Late Contact Info) Description 07/06/2021 Refill [facility] [address] [facility] [address] [place] [address] Monica Quijano MD Refill Request Social History [...] (Late Contact Info) Description 01/19/2025 11:30 AM RETAIL SALES TEAMMATE Procedure visit [facility] Urology [address] [place] [address] [address] [place] [phone] Jose Oliver MD [address] [facility] [address] DIV [place] [phone] documented as of this encounter Goals Goal [...] on filedocumented in this encounter Care Teams Full Stack Web Developer Relationship Specialty Start Date End Date Neva Holden MD [address] [place] [phone] PCP - General 05/06/20 05/25/23 documented as of this encounter
--- OUTSIDE RECORDS SUMMARY | 2024-11-12 05:25 | XMS_ITS | Encounter Summary ---
Author Organization [facility] Address [address] [facility] [place] [address] Care Team Providers Care Slab Worker Name Role Phone Neva Holden MD Primary Care Provider [phone] Reason for Visit * Reason Onset Date Comments Scheduling 10/01/2020 Cath Encounter Details Date Type Department Care Team (Late st Contact Info) Description 10/01/2020 Telephone [facility] [address] [facility] [address] [place] [address] Jacquelin Malloy RN Scheduling (Cath) Social History [...] on 10/24 @ 0730 arriving @ 0600. ER MANUFACTURER * Telephone Encounter - Jacquelin Malloy RN - 10/01/2020 10:54 AM CST Patient in clinic today - decision made to proceed with heart catheterization. Instruction sheet completed and reviewed with patient while in clinic. She will have lab work drawnat [facility]. Message sent to [facility] for scheduling. ER MANUFACTURER documented in this encounter Plan of Treatment Upcoming Encounters Date Type Department Care Team (Late st Contact Info) Description 01/19/2025 11:30 AM VENEER MANUFACTURER Procedure visit [facility] - Urology [address] [facility] [address] [place] [address] Jose Oliver MD [address] [address] documented as of this encounter Goals Goal Patient Goal Type Associated Problems Recent Progress Patient-Stated? Author Medication Management General On track( 021 1:21 PM CDT) Taimko Torres RN Note: Expected end date: ongoing Interventions: Take all medications as prescribed Let your doctor know right away about any changes in your medications Make sure to request a refill of your medication at least one week prior to your last dose documented as of this encounter Visit Diagnoses Not on filedocumented in this encounter Care Teams Slab Worker Relationship Specialty Start Date End Date Neva Holden MD [address] [place] [phone] PCP - General 05/06/20 05/25/23 documented as of this encounter
--- OUTSIDE RECORDS SUMMARY | 2024-11-12 05:25 | XMS_ITS | Encounter Summary ---
Author Organization [facility] Address [address] [place] [address] Care Team Providers Care Bakery Pastry Internship Name Role Phone Neva Holden MD Primary Care Provider [phone] Reason for Referral * Radiology Services (Routine) - Closed Specialty Diagnoses / Procedures Referred By Contac t Referred To Contact Vascular Lab Diagnoses PAD (peripheral artery disease) (HCC) Procedures VAS DILEEP ABD DOPPLER AO IVC ILIAC Ruy Zendejas MD [address] [place] [address] [facility] Vascular Us [address] [place] [address] Referral ID Status Reason Start Date Expiration Date Visits Re quested Visits Authorized [id number] Closed 09/04/2020 09/04/2021 1 1 AULIC PRESS IN OPERATOR Reason for Visit * Radiology Services (Routine) - Closed Specialty Diagnoses / Procedures Referred By Contac t Referred To Contact Vascular Lab Diagnoses PAD (peripheral artery disease) (HCC) Procedures VAS DILEEP ABD DOPPLER AO IVC ILIAC Ruy Zendejas MD [address] [place] [address] [facility] Vascular Us [address] [place] [address] Referral ID Status Reason Start Date Expiration Date Visits Re quested Visits Authorized [id number] Closed 09/04/2020 09/04/2021 1 1 Encounter Details Date Type Department Care Team (Latest Contact Info) Description 10/22/2020 8:09 AM HYDRAULIC PRESS IN OPERATOR Hospital Encounter [facility] [address] [place] [address] Ruy Zendejas MD [address] [place] [address] Discharge Disposition: Home or Self Care Social [...] COVID-19? No / Unsure 10/22/2020 8:01 AM HYDRAULIC PRESS IN OPERATOR documented as of this encounter Medications [...] evening meal 12/27/2016 vitamin D, ergocalciferol, (DRISDOL) 06178 UNITS capsule Take 1 (one) capsule by [...] st Contact Info) Description 01/19/2025 11:30 AM HYDRAULIC PRESS IN OPERATOR Procedure visit [facility] - Urology [address] [place] [address] [address] [place] [address] Jose Oliver MD [address] [place] [phone] documented as of this encounter Goals Goal [...] AO IVC ILIAC Routine 10/22/2020 9:02 AM HYDRAULIC PRESS IN OPERATOR PAD (peripheral artery disease) (HCC) documented in this encounter Results * VAS DILEEP ABD DOPPLER AO IVC ILIAC (10/22/2020 9:02 AM HYDRAULIC PRESS IN OPERATOR) Anatomical Region Laterality Modality Pelvis, Abdomen Intravascular Ul trasound 10/22/2020 8:27 AM HYDRAULIC PRESS IN OPERATOR Narrative Procedure Note Eric Costa MD - 10/22/2020 Ruy Zendejas MD VASCULAR LAB ORDERAB LES documented in this encounter Visit Diagnoses Diagnosis PAD (peripheral artery disease) (HCC) Unspecified disorders of arteries and arterioles documented in this encounter Care Teams Bakery Pastry Internship Relationship Specialty Start Date End Date Neva Holden MD [address] [place] [phone] PCP - General 05/06/20 05/25/23 documented as of this encounter
--- OUTSIDE RECORDS SUMMARY | 2024-11-12 05:25 | XMS_ITS | Encounter Summary ---
Author Organization [facility] Address [address] [place] [address] Care Team Providers Care Demand Inspector Name Role Phone Neva Holden MD Primary Care Provider [phone] Encounter Details Date Type Department Care Team [...] COVID-19? No / Unsure 10/22/2020 8:01 AM AUCTIONEER TOBACCO documented as of this encounter Plan of Treatment Upcoming Encounters Date Type Department Care Team (Late st Contact Info) Description 01/19/2025 11:30 AM AUCTIONEER TOBACCO Procedure visit [facility] - Urology [address] [place] [address] [address] [place] [address] Jose Oliver MD [address] [place] [phone] documented as of this encounter Goals Goal [...] on filedocumented in this encounter Care Teams Demand Inspector Relationship Specialty Start Date End Date Neva Holden MD [address] [place] [phone] PCP - General 05/06/20 05/25/23 documented as of this encounter
--- OUTSIDE RECORDS SUMMARY | 2024-11-12 05:25 | XMS_ITS | Encounter Summary ---
Author Organization [facility] Address [address] [facility] [place] [address] Care Team Providers Care Dam Tender Name Role Phone Dane Sullivan Primary Care Provider Reason for Visit * Reason Comments Red Eye Encounter Details Date Type Department Care Team (Latest Contact Info) Description 03/07/2020 8:45 AM CDT Office Visit [facility] Ophthalmology [address] [place] [address] Tyrone Zuniga MD Acute conjunctivitis, unspecified acute [...] Lane MD - 03/07/2020 9:[address] [facility] Ophthalmology (Located at [facility]) [address] [facility] [place] [address] [facility] (Normal Office hours 8am - 5pm) Follow [...] thesemedicines. Phone Number: Weekdays (8am-5pm) - Call [phone] (Weekday) or [phone] (Alternative Number) Evenings, Weekends, or Holidays: Call [phone] and dial [phone] for the strong nitric operator. Ask to speak to the eye doctor stitch bonding machine drawer in. They will connect us. documented in this [...] tablet 11 ??? vitamin D, ergocalciferol, (DRISDOL) 50935 UNITS capsule No current facility-administered medications for [...] patient. Anand Lane MD Ophthalmology Resident Physician [facility] 03/07/2020 9:08 AM I have seen and [...] st Contact Info) Description 01/19/2025 11:30 AM CLOTH BLEACHING RANGE OPERATOR CHIEF Procedure visit [facility] - Urology [address] [place] [address] [address] [place] [address] Jose Oliver MD [address] OF UROLOGIC [place] [address] documented as of this encounter Visit Diagnoses Diagnosis Acute conjunctivitis, unspecified acute conjunctivitis type, unspecified laterality- Primary documented in this encounter Care Teams Dam Tender Relationship Specialty Start Date End Date Dane Sullivan DO PCP - General 06/24/17 05/05/20 documented as of this encounter
--- OUTSIDE RECORDS SUMMARY | 2024-11-12 05:25 | XMS_ITS | Encounter Summary ---
Author Organization [facility] Address [address] [place] [address] Care Team Providers Care Self Propelled Dredge Operator Name Role Phone Neva Holden MD Primary Care Provider [phone] Encounter Details Date Type Department Care Team (Latest Contact Info) Description 10/06/2021 1:06 PM BUTT WELDER - 10/06/2021 3:19 PM BUTT WELDER Hospital Encounter [facility] PFT [address] [place] [phone] Damian Hager MD [address] [place] [phone] Discharge Disposition: Home or Self Care Social [...] COVID-19? No / Unsure 10/06/2021 12:48 PM BUTT WELDER documented as of this encounter Medications at [...] evening meal 12/27/2016 vitamin D, ergocalciferol, (DRISDOL) 43815 UNITS capsule Take 1 (one) capsule by [...] st Contact Info) Description 01/19/2025 11:30 AM BUTT WELDER Procedure visit [facility] - Urology [address] [place] [address] [address] [place] [phone] Jose Oliver MD [address] [place] [phone] documented as of this encounter Goals Goal [...] SIX MINUTE WALK Routine 10/06/2021 1:05 PM BUTT WELDER Acute exacerbation of chronic obstructive pulmonary disease (COPD) (HCC) Tobacco dependence CATHERINE (obstructive sleep apnea) documented in this encounter Results * SIX MINUTE WALK (10/06/2021 1:05 PM BUTT WELDER) Impressions Rose Marie Oro MD - 10/06/2021 1:05 PM BUTT WELDER [facility] DEPARTMENT OF PULMONARY, CRITICAL CARE, AND SLEEP [...] Marie Oro MD - 10/06/2021 1:05 PM BUTT WELDER Mary Benson MD ? 10/11/2021 ??4:46 PM Damian Hager MD RESPIRATORY THERAPY ORDERABLES documented in this encounter Visit Diagnoses Diagnosis Acute exacerbation of chronic obstructive pulmonary disease (COPD) (HCC) Obstructive chronic bronchitis with exacerbation Tobacco dependence Tobacco use disorder CATHERINE (obstructive sleep apnea) Obstructive sleep apnea (adult) (pediatric) documented in this encounter Care Teams Self Propelled Dredge Operator Relationship Specialty Start Date End Date Neva Holden MD [address] [place] [phone] PCP - General 05/06/20 05/25/23 documented as of this encounter
--- OUTSIDE RECORDS SUMMARY | 2024-11-12 05:25 | XMS_ITS | Encounter Summary ---
Author Organization [facility] Address [address] [facility] [place] [address] Care Team Providers Care Weigher Packing Name Role Phone Neva Holden MD Primary Care Provider [phone] Reason for Visit * Reason Onset Date Comments General 04/23/2021 Encounter Details Date Type Department Care Team (Late Contact Info) Description 04/23/2021 Telephone [facility] [address] [facility] [address] [place] [address] Jacquelin Malloy, RN General Social History Tobacco [...] (Late Contact Info) Description 01/19/2025 11:30 AM FIBREGLASS LAY UP WORKER Procedure visit [facility] Urology [address] [place] [address] [address] [place] [address] Jose Oliver MD [address] [place] [address] documented as of this encounter Goals Goal [...] on filedocumented in this encounter Care Teams Weigher Packing Relationship Specialty Start Date End Date Neva Holden MD [address] [place] [phone] PCP - General 05/06/20 05/25/23 documented as of this encounter
--- OUTSIDE RECORDS SUMMARY | 2024-11-12 05:25 | XMS_ITS | Encounter Summary ---
Author Organization [facility] Address [address] [place] [address] Care Team Providers Care Registration Scheduling Specialist Name Role Phone Neva Holden MD Primary Care Provider [phone] Reason for Referral * Procedure (Routine) - Closed Specialty Diagnoses / Procedures Referred By Contac t Referred To Contact Pulmonary Disease Diagnoses Acute exacerbation of chronic obstructive pulmonary disease (COPD) (HCC) Tobacco dependence CATHERINE (obstructive sleep apnea) Procedures COMPLETE PFT W/WO BRONCHODILATOR Damian Hager MD [address] [place] [address] [place] [address] [facility] [address] [place] [address] Referral ID Status Reason Start Date Expiration Date Visits Re quested Visits Authorized [id number] Closed 07/30/2021 07/30/2022 1 1 TIVE SERVICES SPECIALIST Reason for Visit * Procedure (Routine) - Closed Specialty Diagnoses / Procedures Referred By Contac t Referred To Contact Pulmonary Disease Diagnoses Acute exacerbation of chronic obstructive pulmonary disease (COPD) (HCC) Tobacco dependence CATHERINE (obstructive sleep apnea) Procedures COMPLETE PFT W/WO BRONCHODILATOR Damian Hager MD [address] [place] [address] [facility] [address] [place] [address] Referral ID Status Reason Start Date Expiration Date Visits Re quested Visits Authorized [id number] Closed 07/30/2021 07/30/2022 1 1 Encounter Details Date Type Department Care Team (Latest Contact Info) Description 10/06/2021 1:00 PM CREATIVE SERVICES SPECIALIST - 10/06/2021 1:05 PM CREATIVE SERVICES SPECIALIST Hospital Encounter [facility] [address] [place] [address] Damian Hager MD [address] DIVISION [place] [address] Discharge Disposition: Home or Self [...] COVID-19? No / Unsure 10/06/2021 12:48 PM CREATIVE SERVICES SPECIALIST documented as of this encounter Medications at [...] evening meal 12/27/2016 vitamin D, ergocalciferol, (DRISDOL) 49410 UNITS capsule Take 1 (one) capsule by [...] from the original note were not included. TIVE SERVICES SPECIALIST * Mary Benson MD - 10/06/2021 1:05 PM CSTAssociated Order(s): PFT OXYGEN DESATURATION STUDY Images from the original note were not included. TIVE SERVICES SPECIALIST * Mary Benson MD - 10/06/2021 1:05 PM CSTAssociated Order(s): SIX MINUTE WALK Images from the original note were not included. TIVE SERVICES SPECIALIST documented in this encounter Plan of Treatment Upcoming Encounters Date Type Department Care Team (Late st Contact Info) Description 01/19/2025 11:30 AM CREATIVE SERVICES SPECIALIST Procedure visit [facility] - Urology [address] [place] [address] [address] [place] [address] Jose Oliver MD [facility] [place] [address] documented as of this encounter Goals Goal [...] GASES ART+COOX POCT Routine 10/06/2021 1:38 PM CREATIVE SERVICES SPECIALIST SIX MINUTE WALK Routine 10/06/2021 1:05 PM CREATIVE SERVICES SPECIALIST Acute exacerbation of chronic obstructive pulmonary disease (COPD) (HCC) Tobacco dependence CATHERINE (obstructive sleep apnea) PFT OXYGEN DESATURATION STUDY Routine 10/06/2021 1:05 PM CREATIVE SERVICES SPECIALIST Acute exacerbation of chronic obstructive pulmonary disease (COPD) (HCC) Tobacco dependence CATHERINE (obstructive sleep apnea) COMPLETE PFT W/WO BRONCHODILATOR Routine 10/06/2021 1:05 PM [facility] Acute exacerbation of chronic obstructive pulmonary disease (COPD) (HCC) Tobacco dependence CATHERINE (obstructive sleep apnea) documented in this encounter Results * (ABNORMAL) BLOOD GASES ART+COOX POCT (10/06/2021 1:38 PM [facility]) pH Arterial 7.44 7.35 - 7.45 pH 10/06/2021 1:38 PM [facility] pO2 Arterial 78(L) 80 - 100 mmHg 10/06/2021 1:38 PM [facility] pCO2 Arterial 44 35 - 45 mmHg 1:38 PM [facility] BE Arterial 5.0(H) -2.0 - 2.0 mmol/L 10/06/2021 1:38 PM [facility] Oxyhemoglobin Arterial 91.5 % 10/06/2021 1:38 PM [facility] Dexoyhemoglobin (HHB) % 1.9 % 10/06/2021 1:38 PM [facility] O2 Content Arterial 17.5 Interpret within clinical context mg/dL 10/06/2021 1:38 PM [facility] Hemoglobin by COOX 13.6 12.0 - 15.6 g/dL 10/06/2021 1:38 PM [facility] O2 Saturation Arterial 98 90 - 100 % 10/06/2021 1:38 PM [facility] HCO3 Arterial 30 20 - 30 mmol/l 10/06/2021 1:38 PM [facility] Methemoglobin 0.8 0.0 - 2.0 % 10/06/2021 1:38 PM [facility] Carboxyhemoglobin 5.9(H) 0.0 - 2.0 % 2020 1:38 PM [facility] Comment:Carboxyhemoglobin No rmal Concentration: Non-smokers: 0-2%; Smokers: 0- 9%; Toxic: >20% Blood, arterial ARTERIAL BLOOD SPECIMEN / Unknown 10/06/2021 1:38 PM CREATIVE SERVICES SPECIALIST 10/06/2021 1:39 PM CREATIVE SERVICES SPECIALIST Damian Hager MD LAB - POINT OF CARE ORDERABLES [facility] [address] [place] [address], [facility] [phone] * PFT OXYGEN DESATURATION STUDY (10/06/2021 1:05 PM CREATIVE SERVICES SPECIALIST) Impressions Rose Marie Oro MD - 10/06/2021 1:05 PM CREATIVE SERVICES SPECIALIST [facility] DEPARTMENT OF PULMONARY, CRITICAL CARE, AND [...] Marie Oro MD - 10/06/2021 1:05 PM CREATIVE SERVICES SPECIALIST Mary Benson MD ? 10/11/2021 ??4:46 PM Damian Hager MD PFT ORDERABLES * COMPLETE PFT W/WO BRONCHODILATOR (10/06/2021 1:05 PM CREATIVE SERVICES SPECIALIST) Impressions Rose Marie Oro MD - 10/06/2021 1:05 PM CREATIVE SERVICES SPECIALIST [facility] DEPARTMENT OF PULMONARY, CRITICAL CARE, AND SLEEP [...] of Pulmonary, Critical Care, & Sleep Medicine [facility] I have personally reviewed and intepreted the results of the study and made any necessary edits to the final impression of the fellow. Rose Marie Oro MD Narrative Rose Marie Oro MD - 10/06/2021 1:05 PM CREATIVE SERVICES SPECIALIST Mary Benson MD ? 10/11/2021 ??4:46 PM [...] (pediatric) documented in this encounter Care Teams Registration Scheduling Specialist Relationship Specialty Start Date End Date Neva Holden MD [address] [place] [phone] PCP - General 05/06/20 05/25/23 documented as of this encounter
--- OUTSIDE RECORDS SUMMARY | 2024-11-12 05:25 | XMS_ITS | Encounter Summary ---
Author Organization [facility] Address [address] [place] [address] Care Team Providers Care Public Policy Professor Name Role Phone Neva Holden MD Primary Care Provider [phone] Reason for Visit * Reason Comments HEMORRHOIDS reports blood mixed in with stool and when wiping Voice Disturbance patient reports hoar seness in voice that started a couple months ago Encounter Details Date Type Department Care Team (Late st Contact Info) Description 09/01/2021 1:00 PM CDT Office Visit [facility] - [address], [facility] [place] [phone] Sebastian Lombardi MD [address] [facility] [address] [place] [phone] Hemorrhoids, unspecified hemorrhoid type (Primary Dx); Gastroesophageal [...] the physicians and other specialists at the [facility] today. Following your [...] Hepatology Fellow Division of Gastroenterology and Hepatology [facility] Patient Education GERD (Gastroesophageal Reflux Disease) JUNIOR DESIGNER: Gastroesophageal reflux disease (GERD) is reflux that [...] blood in it. Call your doctor or wood machinist apprentice if: ?? You feel full and cannot [...] symptoms. Follow up with your doctor or wood machinist apprentice as directed: Write down your questions so you remember to ask them during your visits. ?? Copyright [employer] 2020 Information is for End User's use only and may not be sold, redistributed or otherwise used for commercial purposes. All illustrations and images included in CareNotes?? are the copyrighted property of [employer] or [employer] The above information is an medication aid only. It is not intended as medical advice for individual conditions or treatments. Talk to your doctor, nurse or pharmacist before following any medical regimen to see if it is safe and effective for you. Patient Education Hemorrhoids JUNIOR DESIGNER: Hemorrhoids are swollen blood vessels inside your [...] ask them during your visits. ?? Copyright [employer] 2020 Information is for End User's use only and may not be sold, redistributed or otherwise used for commercial purposes. All illustrations and images included in CareNotes?? are the copyrighted property of [employer] or [employer] The above information is an medication aid only. It is not intended as medical [...] remission PAD (peripheral artery disease) CAD in [place] artery Past Medical History: Diagnosis Date ??? [...] 2014 ??? HX TUBAL LIGATION 1989 ??? AR FOOT/TOES SURGERY PROC UNLISTED ??? Tympanostomy 2014 [...] % cream ??? vitamin D, ergocalciferol, (DRISDOL) 87907 UNITS capsule No current facility-administered medications for [...] ALT, ALKPHOS, TBILI, ALB in the last 66792 hours. Imaging: No results found. Procedures: Colonoscopy [...] Lombardi MD PGY-4, Gastroenterology & Hepatology Fellow [facility] documented in this encounter H&P Notes * [...] Highest level of risk: Moderate Suggested code: 96621 documented in this encounter Plan of Treatment Upcoming Encounters Date Type Department Care Team (Late st Contact Info) Description 01/19/2025 11:30 AM DIGITIZER OPERATOR Procedure visit [facility] - Urology [address] [place] [address] [address] [place] [address] Jose Oliver MD [address] [place] [phone] documented as of this encounter Goals Goal [...] reflux documented in this encounter Care Teams Public Policy Professor Relationship Specialty Start Date End Date Neva Holden MD [address] [place] [phone] PCP - General 05/06/20 05/25/23 documented as of this encounter
--- OUTSIDE RECORDS SUMMARY | 2024-11-12 05:25 | XMS_ITS | Encounter Summary ---
Author Organization [facility] Address [address] [facility] [place] [address] Care Team Providers Care Director Of Counseling Name Role Phone Neva Holden MD Primary Care Provider [phone] Encounter Details Date Type Department Care Team [...] Contact Info) Description 01/19/2025 11:30 AM MOLD PRESSER Procedure visit [facility] - Urology [address] [place] [address] [address] [place] [phone] Jose Oliver MD [address] [place] [phone] documented as of this encounter Visit Diagnoses Not on filedocumented in this encounter Care Teams Director Of Counseling Relationship Specialty Start Date End Date Neva Holden MD [address] [place] [phone] PCP - General 05/06/20 05/25/23 documented as of this encounter
--- OUTSIDE RECORDS SUMMARY | 2024-11-12 05:25 | XMS_ITS | Encounter Summary ---
Author Organization [facility] Address [address] [facility] [place] [address] Care Team Providers Care Partition Assembler Name Role Phone Neva Holden MD Primary Care Provider [phone] Reason for Referral * Radiology Services (Routine) - Closed Specialty Diagnoses / Procedures Referred By Contac t Referred To Contact Vascular Lab Diagnoses PAD (peripheral artery disease) (HCC) Procedures VAS DILEEP ABD DOPPLER AO IVC ILIAC Ruy Zendejas MD [address] [place] [address] [facility] [address] [place] [phone] Referral ID Status Reason Start Date Expiration Date Visits Re quested Visits Authorized [id number] Closed 09/04/2020 09/04/2021 1 1 * Radiology Services (Routine) - Closed Specialty Diagnoses / Procedures Referred By Contac t Referred To Contact Vascular Lab Diagnoses PAD (peripheral artery disease) ([facility]) Procedures VAS ARTERIAL ANKLE ARM INDEX Ruy Zendejas MD [address] [place] [address] [facility] [place] [address] Referral ID Status Reason Start Date Expiration Date Visits Re quested Visits Authorized [id number] Closed 09/04/2020 09/04/2021 1 1 * Radiology Services (Routine) - Closed Specialty Diagnoses / Procedures Referred By Contac t Referred To Contact Interventional Radiology Diagnoses PAD (peripheral artery disease) (HCC) Procedures IR ANGIOGRAM LEFT LEG Kendrick Tao MD [address] [facility] 2L [place] [address] [facility] [address] [place] [address] Referral ID Status Reason Start Date Expiration Date Visits Re quested Visits Authorized [id number] Closed 08/20/2020 11/22/2020 1 1 Reason for Visit * Radiology Services (Routine) - Closed Specialty Diagnoses / Procedures Referred By Contac t Referred To Contact Interventional Radiology Diagnoses PAD (peripheral artery disease) (HCC) Procedures IR ANGIOGRAM LEFT LEG Kendrick Tao MD [address] [facility] 2L [place] [address] [facility] [address] [place] [address] Referral ID Status Reason Start Date Expiration Date Visits Re quested Visits Authorized [id number] Closed 08/20/2020 11/22/2020 1 1 Encounter Details Date Type Department Care Team (Latest Contact Info) Description 09/04/2020 6:53 AM CDT - 09/04/2020 3:10 PM CDT Hospital Encounter [facility] [address] [place] [address] Kendrick Tao MD [address] [facility] [address] [place] [phone] [facility] Discharge Disposition: Home or Self [...] evening meal 12/27/2016 vitamin D, ergocalciferol, (DRISDOL) 27039 UNITS capsule Take 1 (one) capsule by [...] ??? HX TUBAL LIGATION ?? 1989 ??? [place] FOOT/TOES SURGERY PROC UNLISTED ? Tympanostomy ?? [...] Gets together: Not on file ? Attends zoroastrianism service: Not on file ? Active member [...] Narrative ?? 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 vitamin D, ergocalciferol, (DRISDOL) 99439 UNITS capsule, , Disp: , Rfl: ? [...] WBC, HGB, HCT, PLT in the last 85111 hours. No results for input(s): NA, K, CL, CO2, BUN, CREATININE, GLU in the last 36413 hours. No results for input(s): PT, PTT, INR in the last 92791 hours. ?? Imaging: Prior imaging in June [...] from angiography. ?? Taiwo Trotter Medical Student [facility] Pager: [phone] August 08, 2020 10:59 AM documented in [...] none Monitoring: Monitoring consisted of: heart rate, blueprint blocker, continuous pulse oximetry, level of consciousness and [...] FPD UTD ??? vitamin D, ergocalciferol, (DRISDOL) 19945 UNITS capsule Patient Active Problem List: GIOVANNY [...] st Contact Info) Description 01/19/2025 11:30 AM AMMONIA BOX TENDER Procedure visit [facility] - Urology [address] [place] [address] [address] [place] [address] Jose Oliver MD [address] OF UROLOGIC SURGERY [place] [phone] documented as of this encounter Goals Goal [...] ARTERIAL ANKLE ARM INDEX (10/22/2020 9:03 AM AMMONIA BOX TENDER) Anatomical Region Laterality Modality Ankle / Foot, Upper Extremity In travascular Ultrasound 10/22/2020 8:16 AM AMMONIA BOX TENDER Narrative Procedure Note Eric Costa MD - 10/22/2020 Ruy Zendejas MD VASCULAR LAB ORDERAB LES * VAS DILEEP ABD DOPPLER AO IVC ILIAC (10/22/2020 9:02 AM AMMONIA BOX TENDER) Anatomical Region Laterality Modality Pelvis, Abdomen Intravascular Ul trasound 10/22/2020 8:27 AM AMMONIA BOX TENDER Narrative Procedure Note Eric Costa MD - 10/22/2020 Ruy Zendejas MD VASCULAR LAB ORDERAB LES * CARDIAC EKG ORDER (09/05/2020 1:15 PM CDT) Narrative 09/05/2020 1:15 PM CDT Ordered by an unspecified provider. Scanned Document CARDIAC SERVICES ORD ERABLES * TROPONIN I (09/04/2020 11:24 AM CDT) [facility] Troponin I 0.025 <0.032 ng/mL 09/04/2020 12:05 PM CDT [facility] Blood BLOOD SPECIMEN / Unknown Venipuncture / Unknown 09/04/2020 11:24 AM CDT 09/04/2020 11:34 AM CDT Ruy Zenedjas MD LAB - CHEMISTRY ORDE BEN [facility] [address] [place] [address], [facility] [phone] * EKG 12-LEAD (09/04/2020 11:16 AM CDT) Pathologist [facility] Ventricular Rate 80 BPM SL MUSE Atrial Rate 80 BPM [facility] MUSE P-R Interval 142 ms [facility] MUSE QRS Duration ms 86 ms [facility] MUSE Q-T Interval ms 392 ms [facility] MUSE QTC Calculation (Bezet) 452 ms [facility] MUSE Calculated P [place] 70 degrees SL MUSE Calculated R [place] 50 degrees [facility] MUSE Calculated T [place] 34 degrees [facility] MUSE Interpretation EKG NORMAL SINUS RHYTHM NORMAL ECG NO PREVIOUS ECGS AVAILABLE Confirmed by Jg Casey ([id number]) on 10/02/2020 11:20:55 AM [facility] MUSE 09/04/2020 11:1 6 AM CDT 10/02/2020 11:20 AM AMMONIA BOX TENDER Ruy Zendejas MD ECG ORDERABLES [facility] MUSE [...] stent placement x2 ATTENDING: Kendrick Tao MD HUMAN SERVICES ASSISTANT: Ruy Zendejas MD ANESTHESIA: Moderate conscious sedation [...] sheath was then exchanged for a 5 Ghanaian sheath over the provided J-wire. A Glidewire [...] sheath was then exchanged for a 5 Ghanaian sheath over a J-wire. A Glidewire and angled glide catheter were then used to attempt crossing the occluded left common iliac artery from below. However, this was initially unsuccessful as it had appeared that the wire and catheter were tracking into a dissection plane in the chickahominy indian tribe distal left common iliac artery. Crossing from [...] For increased support, the left groin 5 Ghanaian sheath was exchanged for a longer 5 Ghanaian sheath. The back of the Glidewire and [...] was withdrawn and the left groin 5 Ghanaian sheath was exchanged for a 7 Ghanaian sheath. In order to prevent jailing of the right common iliac artery and stent, the decision was made to place a balloon in the right common iliac artery and stent with plans to insufflate this in tandem with deployment of the new stent on the left. The wire on the right was exchanged for an Amplatz wire in the right groin 5 Ghanaian sheath was exchanged for a 6 Ghanaian sheath. A 9 mm x 40 mm Sibley balloon was then advanced via the right [...] necessitating further intervention. The left groin 7 Ghanaian sheath was exchanged for a short 7 Ghanaian sheath. The wires were withdrawn and Mynx [...] stent placement x2 ATTENDING: Kendrick Tao MD HUMAN SERVICES ASSISTANT: Ruy Zendejas MD ANESTHESIA: Moderate conscious sedation [...] micropuncture sheath was then exchangedfor a 5 Ghanaian sheath over the provided J-wire. A Glidewire [...] sheath was then exchanged for a 5 Ghanaian sheath over a J-wire. AGlidewire and angled glide catheter were then used to attempt crossing theoccluded left common iliac artery from below. However, this was initially unsuccessful as it had appeared that the wire and catheter were tracking into a dissection plane in the chickahominy indian tribe distal left common iliac artery. Crossing from [...] sheath was exchanged for a longer 5 Ghanaian sheath. The back of the Glidewire and [...] was withdrawn and the left groin 5 Ghanaian sheath was exchanged for a 7 Ghanaian sheath. In order to prevent jailing of theright common iliac artery and stent, the decision was made to place a balloonin the right common iliac artery and stent with plans to insufflate this in tandem with deployment of the new stent on the left. The wire on theright was exchanged for an Amplatz wire in the right groin 5 Ghanaian sheath was exchanged for a 6 Ghanaian sheath. A 9 mm x 40 mm Sibley balloon was then advanced via the right [...] necessitating further intervention. The left groin 7 Ghanaian sheath was exchanged for a short 7 Ghanaian sheath. The wires were withdrawn and Mynx [...] Zendejas on 09/05/2020 8:39 AM . IDr. KENDRICK M.D. have personally reviewed and interpreted this examination/study. This report was electronically signed by KENDRICK TAO M.D. on 09/06/2020 11:05 AM . Kendrick Tao MD IR ORDERABLES * (ABNORMAL) GLUCOSE - POINT OF CARE (09/04/2020 7:32 AM CDT) [facility] Glucose WB/POC 189(H) 70 - 115 mg/dL 09/04/2020 7:37 AM [facility] Specimen Type Venous 09/04/2020 7:37 AM [facility] Blood BLOOD SPECIMEN / Unknown 09/04/2020 7:32 AM CDT 09/04/2020 7:37 AM CDT Kendrick Tao MD LAB - POINT OF CARE ORDERABLES Performing Organization Address City/State/[facility] Co de Phone Number [facility] [address] [place] [address], [facility] [phone] * (ABNORMAL) BASIC METABOLIC PANEL (CALCIUM TOTAL) (09/04/2020 7:29 AM CDT) [facility] BUN 21 7 - 26 mg/dL 09/04/2020 8:08 AM [facility] Creatinine 0.7 0.6 - 1.2 mg/dL 09/04/2020 8:08 AM [facility] Sodium 138 136 - 145 mmol/L 09/04/2020 8:08 AM [facility] Potassium 3.8 3.5 - 4.5 mmol/L 09/04/2020 8:08 AM [facility] Chloride 104 98 - 107 mmol/L 09/04/2020 8:08 AM [facility] CO2 24 22 - 29 mmol/L 09/04/2020 8:08 AM [facility] Glucose 181(H) 70 - 115 mg/dL 09/04/2020 8:08 AM [facility] Calcium 8.6 8.4 - 10.2 mg/dL 09/04/2020 8:08 AM [facility] Anion Gap 14 8 - 18 09/04/2020 8:08 AM [facility] BUN/Creatinine Ratio 30(H) 7 - 23 09/04/2020 8:08 AM CDT [facility] Osmolality Calculated 294 270 - 300 mOsm/kg 09/04/2020 8:08 AM CDT [facility] eGFR >60 >60 mL/min/1.7 3 m2 09/04/2020 8:08 AM [facility] Blood BLOOD SPECIMEN / Unknown Venipuncture / Unknown 09/04/2020 7:29 AM CDT 09/04/2020 7:38 AM CDT Ruy Zendejas MD LAB - CHEMISTRY BASSAM CONTRERAS [facility] [address] [place] [address], [facility] [phone] * (ABNORMAL) CBC W/O DIFFERENTIAL (09/04/2020 7:29 AM CDT) WBC 11.4(H) 3.5 - 10.5 10? 3 /uL 09/04/2020 8:10 AM [facility] RBC 4.69 3.90 - 5.00 10? 6 /uL 09/04/2020 8:10 AM [facility] Hemoglobin 13.3 12.0 - 15.5 g/dL 09/04/2020 8:10 AM [facility] Hematocrit 40.6 35.0 - 45.0 % 09/04/2020 8:10 AM [facility] MCV 86.6 81.0 - 97.0 fL 09/04/2020 8:10 AM [facility] MCH 28.4 28.0 - 34.0 pg 09/04/2020 8:10 AM [facility] MCHC 32.8 32.0 - 36.0 g/dL 09/04/2020 8:10 AM [facility] Platelet Count 192 150 - 400 10? 3 /uL 09/04/2020 8:10 AM T [facility] RDW-SD 42.7 36.0 - 50.0 fL 09/04/2020 8:10 AM [facility] RDW-CV 13.7 11.2 - 14.8 % 09/04/2020 8:10 AM [facility] MPV 10.2 9.3 - 12.8 fL 09/04/2020 8:10 AM CDT [facility] nRBC Absolute 0.00 0 10? 3 /uL 09/04/2020 8:10 AM CDT [facility] nRBC Auto 0.0 0 /100 WBC 09/04/2020 8:10 AM CDT [facility] Blood BLOOD SPECIMEN / Unknown Venipuncture / Unknown 09/04/2020 7:29 AM CDT 09/04/2020 7:38 AM CDT Ruy Zendejas MD LAB - HEMATOLOGY ORD ERABLES [facility] [address] [place] [address], [facility] [phone] documented in this encounter Visit Diagnoses Diagnosis [...] RN) documented in this encounter Care Teams Partition Assembler Relationship Specialty Start Date End Date Neva Holden MD [address] [place] [phone] PCP - General 05/06/20 05/25/23 documented as of this encounter
--- OUTSIDE RECORDS SUMMARY | 2024-11-12 05:25 | XMS_ITS | Encounter Summary ---
Author Organization [facility] Address [address] [facility] [place] [address] Care Team Providers Care Relay Assembler Name Role Phone Neva Holden MD [...] st Contact Info) Description 01/19/2025 11:30 AM REPAIR SERVICER Procedure visit [facility] - Urology [address] [place] [address] [address] [place] [address] Jose Oliver MD [address] [place] [phone] documented as of this encounter Goals Goal [...] on filedocumented in this encounter Care Teams Relay Assembler Relationship Specialty Start Date End Date Neva Holden MD [address] [place] [phone] PCP - General 05/06/20 05/25/23 documented as of this encounter
--- OUTSIDE RECORDS SUMMARY | 2024-11-12 05:25 | XMS_ITS | Encounter Summary ---
Author Organization [facility] Address [address] [place] [place] [address] Care Team Providers Care Airline Station Agent Name Role Phone Dane Sullivan Primary Care Provider Encounter Details Date Type Department Care Team (Latest Contact Info) Description 10/08/2015 Hospital Outpatient Visit [facility]opedics [address] [facility] [place] [place] [address] Kenan Singh MD [address] [place] [address] Discharge Disposition: Home or Self Care Social [...] st Contact Info) Description 01/19/2025 11:30 AM CYBER FORENSICS ANALYST Procedure visit [facility] [address] [facility] [address] [place] [phone] Jose Oliver MD [address] [place] [address] 2L [place] [phone] documented as of this encounter Procedures Procedure Name Priority Date/Time Associated Diagnosis Comments XR KNEE RIGHT 4VW OR MORE Routine 10/08/2015 8:35 AM CYBER FORENSICS ANALYST XR KNEE LEFT 4VW OR MORE Routine 10/08/2015 8:35 AM CYBER FORENSICS ANALYST documented in this encounter Results * XR KNEE RIGHT 4VW OR MORE (10/08/2015 8:35 AM CYBER FORENSICS ANALYST) Anatomical Region Laterality Modality Lower Extremity Other Impressions 10/08/2015 11:03 AM CYBER FORENSICS ANALYST Impression: 1. No acute osseous injury. 2. [...] 11:03 AM . Narrative 10/08/2015 11:03 AM CYBER FORENSICS ANALYST Examination: 1. XR KNEE RIGHT 4+ VW [...] LEFT 4VW OR MORE (10/08/2015 8:35 AM CYBER FORENSICS ANALYST) Anatomical Region Laterality Modality Lower Extremity Other Impressions 10/08/2015 11:03 AM CYBER FORENSICS ANALYST Impression: 1. No acute osseous injury. 2. [...] 11:03 AM . Narrative 10/08/2015 11:03 AM CYBER FORENSICS ANALYST Examination: 1. XR KNEE RIGHT 4+ VW [...] leg documented in this encounter Care Teams Airline Station Agent Relationship Specialty Start Date End Date Dane Sullivan DO PCP - General 06/24/17 05/05/20 documented as of this encounter
--- OUTSIDE RECORDS SUMMARY | 2024-11-12 05:25 | XMS_ITS | Encounter Summary ---
Author Organization [facility] Address [address] [facility] [place] [address] Care Team Providers Care Warehouse Technician Name Role Phone Neva Holden MD Primary Care Provider [phone] Reason for Visit * Reason Comments Macular Degeneration Encounter Details Date Type Department Care Team (Late st Contact Info) Description 06/12/2020 10:15 AM CDT Office Visit [facility] Ophthalmology [address] [place] [address] Tyrone Zuniga MD Blurred vision, bilateral (Primary [...] a pleasure seeing you today in the [facility] Ophthalmology clinic. Call us immediately with any sudden change in vision, sudden or worsening eye pain, if you notice alarge increase or have thousands of floating objects, if you have flashing lights in your vision, or if you have questions about your drops or eye medications. During regular hours, you may call our clinic here at the [facility] ([facility] [phone]; 8am - 4pm, Wednesday - Wednesday, excluding holidays. If after these hours or on the weekend, you will need to call [facility] ([phone]), dial 0 for the casting wheel operator, and say you are an eye patient and need to speak with the eye doctor clerk travel reservations. They will contact one of the eye [...] tablet 11 ??? vitamin D, ergocalciferol, (DRISDOL) 66722 UNITS capsule No current facility-administered medications for [...] st Contact Info) Description 01/19/2025 11:30 AM GAS COMBUSTION ENGINEER Procedure visit [facility] - Urology [address] [place] [address] [address] [place] [address] Jose Oliver MD [address] [place] [phone] documented as of this encounter Procedures Procedure [...] disturbances documented in this encounter Care Teams Warehouse Technician Relationship Specialty Start Date End Date Neva Holden MD [address] [place] [phone] PCP - General 05/06/20 05/25/23 documented as of this encounter
--- OUTSIDE RECORDS SUMMARY | 2024-11-12 05:25 | XMS_ITS | Encounter Summary ---
Author Organization [facility] Address [address] [facility] [place] [address] Care Team Providers Care Dock Boss Name Role Phone Neva Holden MD Primary Care Provider [phone] Encounter Details Date Type Department Care Team (Late Contact Info) Description 02/07/2021 Orders Only [facility] - COVID Vaccine [address] [place] [phone] Jose A Aranda MD [address] [place] [address] Need for vaccination Social History Tobacco Use [...] (Late Contact Info) Description 01/19/2025 11:30 AM BI SOLUTIONS ARCHITECT Procedure visit [facility] - Urology [address] [place] [address] [address] [place] [phone] Jose Oliver MD [address] [facility] 2L [place] [address] documented as of this encounter [...] disease documented in this encounter Care Teams Dock Boss Relationship Specialty Start Date End Date Neva Holden MD [address] [place] [phone] PCP - General 05/06/20 05/25/23 documented as of this encounter
--- OUTSIDE RECORDS SUMMARY | 2024-11-12 05:25 | XMS_ITS | Encounter Summary ---
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 She can be reached at: [phone] documented in this encounter Progress Notes * [...] 3 months, sooner PRN. Monica Quijano DO [facility] Cardiology Subjective Patient reports having a cold, taking OTC without decongestant. 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 Chest pain good- went down [...] see Ms. Rody Zaidi in consultation at [facility] Cardiology on 03/03/2021 for evaluation of [...] calming herself done. 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
--- OUTSIDE RECORDS SUMMARY | 2024-11-12 05:27 | XMS_ITS | Encounter Summary ---
Author Organization [facility] Address [facility] [place] [place], [place] [address] [place] [address] Care Team Providers Care Delta System Freight Car Cleaner Name Role Phone Asa Mcnamara MD Unavailable [phone] Neva Holden MD Primary Care Provider [phone] Reason for Visit * Reason Onset Date Comments Appointment Request 02/14/2020 Virtual visi t Encounter Details Date Type Department Care Team (Late st Contact Info) Description 02/14/2020 Telephone [facility] at [facility], [address] [place] [address] Kaylee Raza PA-C [address] [facility], [address] [place] [address] Appointment Request (Virtual visit ) Social History Tobacco Use Types Packs/Day Years Used Date Smoking Tobacco: Every Day Cigarettes Smokeless Tobacco: Never Comments:1 pk day Alcohol Use Standard Drinks/Week Comments No 0 (1 standard drink = 0.6 oz pur e alcohol) Comments Unknown Sex and Gender Information Value Date Recorded Sex Assigned at Female 12/06/2019 3:36 PM PARK MAINTAINER Legal Sex Female 5:20 PM CDT Gender Identity Female 12/06/2019 3:36 PM PARK MAINTAINER Sexual Orientation Straight 12/06/2019 3: 36 PM PARK MAINTAINER Occupation Industry Job Start Date Job End [...] PM CDT Contacted patient to enroll in [employer] for virtual visit access. Sent e-mail to patient for MyChartenrollment. Patient has upcomming appointment with Dr. Mcnamara on 02/21/2020 @ 1130AM. She would like to schedule this as a virtual visit. Please call patient to establish. Thank you. documented in this encounter Plan of Treatment Not on file documented as of this encounter Visit Diagnoses Not on filedocumented in this encounter Care Teams Delta System Freight Car Cleaner Relationship Specialty Start Date End Date Neva Holden MD [facility] [address] [place] [address] PCP - General FAMILY PRACTICE 02/14/20 Asa Mcnamara MD [address] [facility]. [address] [place] [address] Stephen Wire Communications Engineer CARDIOVASCULAR DISEASE 05/15/16 documented as of this encounter
--- OUTSIDE RECORDS SUMMARY | 2024-11-12 05:27 | XMS_ITS | Encounter Summary ---
Author Organization [facility] Address [facility]6 [facility] [place] [address] [place] [address] Care Team Providers Care Configuration Management Specialist Name Role Phone Asa Mcnamara MD Unavailable [phone] Neva Holden MD Primary Care Provider [phone] Encounter Details Date Type Department Care Team (Late st Contact Info) Description 08/02/2020 Orders Only [facility] at [address] [address] Suzanne Corado, RMA Social History Tobacco Use Types Packs/Day Years Used Date Smoking Tobacco: Every Day Cigarettes Smokeless Tobacco: Never Comments:1 pk day Alcohol Use Standard Drinks/Week Comments No 0 (1 standard drink = 0.6 oz pur e alcohol) Comments Unknown Sex and Gender Information Value Date Recorded Sex Assigned at Female 12/06/2019 3:36 PM PACK WORKER Legal Sex Female 5:20 PM CDT Gender Identity Female 12/06/2019 3:36 PM PACK WORKER Sexual Orientation Straight 12/06/2019 3: 36 PM PACK WORKER Occupation Industry Job Start Date Job [...] Extremity Vascular Ultraso und Asa Mcnamara MD [facility] Final Result documented in this encounter Visit Diagnoses Diagnosis PVD (peripheral vascular disease) with claudication ([facility]) Peripheral vascular disease, unspecified documented in this encounter Care Teams Configuration Management Specialist Relationship Specialty Start Date End Date Neva Holden MD [facility] [address] [place] [address] PCP - General FAMILY PRACTICE 02/14/20 Asa Mcnamara MD [facility]. [facility] [address] [place] [address] [place] Livestock Yard Attendant CARDIOVASCULAR DISEASE 05/15/16 documented as of this encounter
--- OUTSIDE RECORDS SUMMARY | 2024-11-12 05:27 | XMS_ITS | Encounter Summary ---
Author Organization [facility] Address [facility]6 [facility] [place] [address] [place] [address] Care Team Providers Care Head Of Partner Development Name Role Phone Asa Mcnamara MD Unavailable [phone] Neva Holden MD Primary Care Provider [phone] Reason for Visit * Reason Onset Date Comments Lab Results 11/03/2019 Encounter Details Date Type Department Care Team (Late st Contact Info) Description 11/03/2019 Telephone [facility] at [address] [address] Katt Walter hydrologist Results Social History Tobacco Use Types Packs/Day Years Used Date Smoking Tobacco: Every Day Cigarettes Smokeless Tobacco: Never Comments:1 pk day Alcohol Use Standard Drinks/Week Comments No 0 (1 standard drink = 0.6 oz pur e alcohol) Comments Unknown Sex and Gender Information Value Date Recorded Sex Assigned at Female 12/06/2019 3:36 PM DRYWALL HANGER Legal Sex Female 5:20 PM CDT Gender Identity Female 12/06/2019 3:36 PM DRYWALL HANGER Sexual Orientation Straight 12/06/2019 3: 36 PM DRYWALL HANGER Occupation Industry Job Start Date Job End [...] PCP. The patient had no further questions. ALL HANGER documented in this encounter Plan of Treatment Not on file documented as of this encounter Visit Diagnoses Not on filedocumented in this encounter Care Teams Head Of Partner Development Relationship Specialty Start Date End Date Neva Holden MD [facility] [address] [place] [address] PCP - General FAMILY PRACTICE 10/15/19 12/05/19 Asa Mcnamara MD [facility]. [facility] [address] [place] [address] [place] Process Equipment Operator CARDIOVASCULAR DISEASE 05/15/16 documented as of this encounter
--- OUTSIDE RECORDS SUMMARY | 2024-11-12 05:27 | XMS_ITS | Encounter Summary ---
Author Organization [facility] Address [facility]6 [place] [address] [place] [address] Care Team Providers Care Control Valve Technician Name Role Phone Asa Mcnamara MD Unavailable [phone] Neva Holden MD Primary Care Provider [phone] Encounter Details Date Type Department Care Team (Late st Contact Info) Description 02/29/2020 Scan [facility] at [address] [address] Scanned, Documents Social History Tobacco Use Types Packs/Day Years Used Date Smoking Tobacco: Every Day Cigarettes Smokeless Tobacco: Never Comments:1 pk day Alcohol Use Standard Drinks/Week Comments No 0 (1 standard drink = 0.6 oz pur e alcohol) Comments Unknown Sex and Gender Information Value Date Recorded Sex Assigned at Female 12/06/2019 3:36 PM CARGO SERVICES COORDINATOR Legal Sex Female 5:20 PM CDT Gender Identity Female 12/06/2019 3:36 PM CARGO SERVICES COORDINATOR Sexual Orientation Straight 12/06/2019 3: 36 PM CARGO SERVICES COORDINATOR Occupation Industry Job Start Date Job [...] (01/17/2020) us Documents Scanned SCANNING Final Result [facility] ONBASE documented in this encounter Visit Diagnoses Not on filedocumented in this encounter Care Teams Control Valve Technician Relationship Specialty Start Date End Date Neva Holden MD [facility] [address] [place] [address] PCP - General FAMILY PRACTICE 02/14/20 Asa Mcnamara MD [facility] [address] [place] [address] [place] Double Surface Operator CARDIOVASCULAR DISEASE 05/15/16 documented as of this encounter
--- OUTSIDE RECORDS SUMMARY | 2024-11-12 05:27 | XMS_ITS | Encounter Summary ---
Author Organization [facility] Address [facility]6 [facility]. [place], [place] [address] [place] [address] Care Team Providers Care Photoengraving Machine Operator/Tender Name Role Phone Asa Mcnamara MD Unavailable [phone] Neva Holden MD Primary Care Provider Reason for Visit * Reason Comments Peripheral Vascular Disease 3 month foll ow-up Encounter Details Date Type Department Care Team (Late st Contact Info) Description 02/21/2020 8:30 AM CDT Office Visit [facility] at [facility], [facility] [address] [place], [place] [address] Asa Mcnamara MD [facility]. [facility] [address] [place], [place] [address] Peripheral Vascular Disease (3 month follow-up ) Social History Tobacco Use Types Packs/Day Years Used Date Smoking Tobacco: Every Day Cigarettes Smokeless Tobacco: Never Comments:1 pk day Alcohol Use Standard Drinks/Week Comments No 0 (1 standard drink = 0.6 oz pur e alcohol) Comments Unknown Sex and Gender Information Value Date Recorded Sex Assigned at Female 12/06/2019 3:36 PM WEAVER NEEDLE LOOM Legal Sex Female 5:20 PM CDT Gender Identity Female 12/06/2019 3:36 PM WEAVER NEEDLE LOOM Sexual Orientation Straight 12/06/2019 3: 36 PM WEAVER NEEDLE LOOM Occupation Industry Job Start Date Job End [...] or stroke. Where can I learn more? [place] [employer] http://familydoctor.org/familydoctor/en/diseases-conditions/high-cholesterol.gaviota nterview.all.html [place] [employer] http://www.heart.org/HEARTORG/Conditions/Cholesterol/PreventionTreatmentofHighCh olesterol/Kkcpbrilpv-abt-Zcenhumqd-bd-Bhlh-Crnbqmtckkw_XFT_406491_Zhfzqfr.jsp Last Reviewed Date 2019-05-24 Consumer Information Use [...] for you. Copyright Copyright ?? 2020 [employer] Clinical Drug Information, Inc. and its affiliates [...] continue with medical management and avoid any nonurgentprocedures during the virus pandemic. She agrees with [...] Disp: , Rfl: ??? vitamin D2, ergocalciferol, 71383 UNITS capsule, Take 50,000 Units by mouth every 7 days., Disp: , Rfl: ??? COMPRESSION STOCKINGS, 15-20 mm Hg compression knee highs 2 pairs, Disp: 2 Container, Rfl: 0 Allergies Allergen Reactions ??? Wasp Venom Protein Anaphylaxis ??? Codeine Nausea and Vomiting ??? Haloperidol Seizure ??? Penicillins Redness ??? Resperal-Dm [Tvl-Ku-Wlj-Propyl Wkduuw-Zog-Cggopjfme] Seizure ??? Simvastatin Other (see comment) Cant [...] infarction documented in this encounter Care Teams Photoengraving Machine Operator/Tender Relationship Specialty Start Date End Date Neva Holden MD [facility] [address] [address] PCP - General FAMILY PRACTICE 02/14/[address] [facility] [address] [place] [address] [place] Reinforcing Steel Worker Wire Mesh CARDIOVASCULAR DISEASE 05/15/16 documented as of this encounter
--- OUTSIDE RECORDS SUMMARY | 2024-11-12 05:27 | XMS_ITS | Encounter Summary ---
Author Organization [facility] Address [address] [facility] [place] [address] [place] [address] Care Team Providers Care Compensation Supervisor Name Role Phone Asa Mcnamara MD Unavailable [phone] Neva Holden MD Primary Care Provider [phone] Reason for Referral * Imaging (Routine) - Closed Specialty Diagnoses / Procedures Referred By Contac t Referred To Contact RADIOLOGY Diagnoses PVD (peripheral vascular disease) with claudication (CMS/HCC) Procedures USV ART REST W KENZIE LOW EXT Asa Mcnamara MD [facility]. [facility] [address] [place] [address] Phone: tel: fax: [facility] [address] [place] [address] Phone: tel: Referral ID Status Reason Start Date Expiration Date Visits Re quested Visits Authorized [id number] Closed 06/17/2020 07/18/2021 1 1 Encounter Details Date Type Department Care Team (Late st Contact Info) Description 06/17/2020 Orders Only [facility] [address] [place] [address] Asa Mcnamara MD [facility]. [facility] [address] [place] [address] Social History Tobacco Use Types Packs/Day Years Used Date Smoking Tobacco: Every Day Cigarettes Smokeless Tobacco: Never Comments:1 pk day Alcohol Use Standard Drinks/Week Comments No 0 (1 standard drink = 0.6 oz pur e alcohol) Comments Unknown Sex and Gender Information Value Date Recorded Sex Assigned at Female 12/06/2019 3:36 PM GRIP BOSS Legal Sex Female 5:20 PM CDT Gender Identity Female 12/06/2019 3:36 PM GRIP BOSS Sexual Orientation Straight 12/06/2019 3: 36 PM GRIP BOSS Occupation Industry Job Start Date Job End [...] hyperlipidemia documented in this encounter Care Teams Compensation Supervisor Relationship Specialty Start Date End Date Neva Holden MD [facility] [address] [address] PCP - General FAMILY PRACTICE 02/14/20 Asa Mcnamara MD [facility]. [facility] [address] [place] [address] [place] Automotive Project Engineer CARDIOVASCULAR DISEASE 05/15/16 documented as of this encounter
--- OUTSIDE RECORDS SUMMARY | 2024-11-12 05:27 | XMS_ITS | Encounter Summary ---
Author Organization [facility] Address [facility]6 [facility]. [place], [place] [address] [place] [address] Care Team Providers Care Mainframe Programmer Name Role Phone Asa Mcnamraa MD Unavailable [phone] Neva Holden MD Primary Care Provider [phone] Encounter Details Date Type Department Care Team [...] Sex Assigned at Female 12/06/2019 3:36 PM QUALITY CONTROL TESTER Legal Sex Female 5:20 PM CDT Gender Identity Female 12/06/2019 3:36 PM QUALITY CONTROL TESTER Sexual Orientation Straight 12/06/2019 3: 36 PM QUALITY CONTROL TESTER Occupation Industry Job Start Date Job End Date Not on file Not on file Not on file Not on file documented as of this encounter Plan of Treatment Not on file documented as of this encounter Visit Diagnoses Not on filedocumented in this encounter Care Teams Mainframe Programmer Relationship Specialty Start Date End Date Neva Holden MD . [facility] [address] [place] [address] PCP - General FAMILY PRACTICE 10/15/19 12/05/19 Asa Mcnamara MD [facility]. [facility] [address] [place] [address] [place] Department Store General Manager CARDIOVASCULAR DISEASE 05/15/16 documented as of this encounter
--- OUTSIDE RECORDS SUMMARY | 2024-11-12 05:27 | XMS_ITS | Encounter Summary ---
Author Organization [facility] - [facility] Address [address] [facility]. [place], [place] [address] [place] [address] Care Team Providers Care Fluid Designer Name Role Phone Asa Mncamara MD Unavailable [phone] Deisi Andrews MD Primary Care Provider [phone] Reason for Visit * Reason Comments New Patient right foot painful c allus for 3 months * Consultation/Treatment (Routine) - Closed Specialty Diagnoses / Procedures Referred By Nacho t Referred To Contact Hairspring Cutter - Foot & Ankle Surgery / PODIATRY Diagnoses wart/callus left Procedures NEW PATIENT Neva Holden MD . [facility] [address] [address] Phone: tel: fax: Annie Jaquez DPM [address] [place] [address] Phone: tel: fax: Referral ID Status Reason Start Date Expiration Date Visits Re quested Visits Authorized [id number] Closed 12/06/2019 12/06/2020 99 99 Encounter Details Date Type Department Care Team (Late st Contact Info) Description 12/06/2019 3:20 PM OPEN WINDER Office Visit [facility] - [address] [address] Annie Jaquez DPM [address] [place] [phone] New Patient (right foot painful callus for 3 months ) Social History Tobacco Use Types Packs/Day Years Used Date Smoking Tobacco: Every Day Cigarettes Smokeless Tobacco: Never Comments:1 pk day Alcohol Use Standard Drinks/Week Comments No 0 (1 standard drink = 0.6 oz pur e alcohol) Comments Unknown Sex and Gender Information Value Date Recorded Sex Assigned at Female 12/06/2019 3:36 PM OPEN WINDER Legal Sex Female 5:20 PM CDT Gender Identity Female 12/06/2019 3:36 PM OPEN WINDER Sexual Orientation Straight 12/06/2019 3: 36 PM OPEN WINDER Occupation Industry Job Start Date Job End Date Not on file Not on file Not on file Not on file documented as of this encounter Last Filed Vital Signs Vital Sign Reading Time Taken Comments Blood Pressure 138/76 12/06/2019 3:33 PM OPEN WINDER Pulse - - Temperature - - Respiratory Rate - - Oxygen Saturation - - Inhaled Oxygen Concentration - - Weight 98.7 kg (217 lb 8 oz) 12/06/2019 3:33 PM OPEN WINDER Height 160 cm (5' 3 ) 12/06/2019 3:33 PM OPEN WINDER Body Mass Index 38.53 12/06/2019 3:33 PM OPEN WINDER documented in this encounter Progress Notes * [...] total) by mouth daily. Prior Auth APPROVED [id number] 01-28-2020., Disp: , Rfl: ??? fexofenadine (SAMANTHA [...] Haloperidol Seizure ??? Penicillins Redness ??? Resperal-Dm [Iyn-Sp-Twh-Propyl Wzkzgy-Fbq-Onmtevoqc] Seizure ??? Simvastatin Other (see comment) Cant [...] file Gets together: Not on file Attends restorationist service: Not on file Active member of [...] great toenail. 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
--- OUTSIDE RECORDS SUMMARY | 2024-11-12 05:27 | XMS_ITS | Encounter Summary ---
Author Organization [facility] Address [address] [facility]. [place], [place] [address] [place] [address] Care Team Providers Care Dehydration Plant Operator Name Role Phone Asa Mcnamara MD Unavailable [phone] Deisi Andrews MD Primary Care Provider [phone] Encounter Details Date Type Department Care Team [...] Sex Assigned at Female 12/06/2019 3:36 PM CERTIFIED RESPIRATORY THERAPIST Legal Sex Female 5:20 PM CDT Gender Identity Female 12/06/2019 3:36 PM CERTIFIED RESPIRATORY THERAPIST Sexual Orientation Straight 12/06/2019 3: 36 PM CERTIFIED RESPIRATORY THERAPIST Occupation Industry Job Start Date Job End Date Not on file Not on file Not on file Not on file documented as of this encounter Plan of Treatment Not on file documented as of this encounter Visit Diagnoses Not on filedocumented in this encounter Care Teams Dehydration Plant Operator Relationship Specialty Start Date End Date Deisi Andrews MD [address] [place], [place] [address], [place] [address] PCP - General FAMILY PRACTICE 12/06/19 02/13/20 Asa Mcnamara MD [facility]. [facility] [address] [place] [address] [place] Collection Clerk CARDIOVASCULAR DISEASE 05/15/16 documented as of this encounter
--- OUTSIDE RECORDS SUMMARY | 2024-11-12 05:27 | XMS_ITS | Encounter Summary ---
Author Organization [facility] Address [facility]6 [facility] [place] [address] [place] [address] Care Team Providers Care Sanitation Engineer Name Role Phone Asa Mcnamara MD Unavailable [phone] Neva Holden MD Primary Care Provider [phone] Reason for Visit * Reason Onset Date Comments Testing 07/31/2020 Encounter Details Date Type Department Care Team (Late st Contact Info) Description 07/31/2020 Telephone [facility] at [facility], [place] [address] [place] [address] Kaylee Raza PA-C [address] [facility], [address] [place] [address] Testing Social History Tobacco Use Types Packs/Day Years Used Date Smoking Tobacco: Every Day Cigarettes Smokeless Tobacco: Never Comments:1 pk day Alcohol Use Standard Drinks/Week Comments No 0 (1 standard drink = 0.6 oz pur e alcohol) Comments Unknown Sex and Gender Information Value Date Recorded Sex Assigned at Female 12/06/2019 3:36 PM SENIOR MEDIA DIRECTOR Legal Sex Female 5:20 PM CDT Gender Identity Female 12/06/2019 3:36 PM SENIOR MEDIA DIRECTOR Sexual Orientation Straight 12/06/2019 3: 36 PM SENIOR MEDIA DIRECTOR Occupation Industry Job Start Date Job End Date Not on file Not on file Not on file Not on file documented as of this encounter Progress Notes * Nery Cadet - 08/01/2020 10:22 AM CDT Patient is scheduled with Dr. Clark at [facility] on 08-08-20 @ 10:15 am. Patient aware. Records faxed to [phone]. * Kaylee Raza PA-C - 07/31/2020 4:25 PM CDT Discussed recent vascular testing with patient. B/L common iliac stents are patent. Elevated velocity in the lt KALANI, suggestive of high grade stenosis. She continues to report pain in her buttocks and calves with walking. She has pain in left leg at rest. Denies nonhealing ulcers. Insurance is not accepted at [facility]. Most of patient's MDs are at [facility]. Will place referral for vascular MD at [facility]. Patient voiced understanding. Please place urgent referral for vascular at [facility]. Dx: PVD; lifestyle limiting claudication Please fax results to PCP. documented in this encounter Plan of Treatment Not on file documented as of this encounter Visit Diagnoses Not on filedocumented in this encounter Care Teams Sanitation Engineer Relationship Specialty Start Date End Date Neva Holden MD [facility] [address] [place] [address] PCP - General FAMILY PRACTICE 02/14/20 Asa Mcnamara MD Three [facility]. [place] [address] [place] [address] [place] Machine Operator Helper CARDIOVASCULAR DISEASE 05/15/16 documented as of this encounter
--- OUTSIDE RECORDS SUMMARY | 2024-11-12 05:27 | XMS_ITS | Clinical Summary ---
Author Organization [facility] Address [address] [place] [address] Phone Care Team Providers Care Supervisor Seaming Name Role Phone Unavailable Primary Care Provider [...] Comments Blood Pressure 138/84 01/15/2016 12:01 AM PLATE CORRECTOR Ri ght Pulse - - Temperature 36.3 ??C (97.3 ??F) 01/15/2016 12:[address] Respiratory Rate - - Oxygen Saturation - - Inhaled Oxygen Concentration - - Weight 102 kg (225 lb) 01/15/2016 12:01 AM PLATE CORRECTOR Height 157.5 cm (5' 2 ) 01/15/2016 12:01 AM PLATE CORRECTOR Body Mass Index 41.15 01/15/2016 12:01 AM PLATE CORRECTOR Plan of Treatment Not on file
--- OUTSIDE RECORDS SUMMARY | 2024-11-12 05:27 | XMS_ITS | Encounter Summary ---
Author Organization [facility] Address [address] [place] [address] [place] [address] Care Team Providers Care Stitch Cleaner Name Role Phone Asa Mcnamara MD Unavailable [phone] Neva Holden MD Primary Care Provider [phone] Deisi Andrews MD Primary Care Provider [phone] Neva Holden MD Primary Care Provider [phone] Encounter Details Date Type Department Care Team (Late st Contact Info) Description 11/01/2019 [facility] at [address] [address] Rafael Thakur [place] Social History Tobacco Use Types Packs/Day Years Used Date Smoking Tobacco: Every Day Cigarettes Smokeless Tobacco: Never Comments:1 pk day Alcohol Use Standard Drinks/Week Comments No 0 (1 standard drink = 0.6 oz pur e alcohol) Comments Unknown Sex and Gender Information Value Date Recorded Sex Assigned at Female 12/06/2019 3:36 PM METROLOGY ENGINEER Legal Sex Female 5:20 PM CDT Gender Identity Female 12/06/2019 3:36 PM METROLOGY ENGINEER Sexual Orientation Straight 12/06/2019 3: 36 PM METROLOGY ENGINEER Occupation Industry Job Start Date Job [...] on filedocumented in this encounter Care Teams Stitch Cleaner Relationship Specialty Start Date End Date Neva Holden MD [facility] [address] [place] [address] PCP - General FAMILY PRACTICE 10/15/19 12/05/19 Deisi Andrews MD [address] [place] [address] PCP - General FAMILY PRACTICE 12/06/19 02/13/20 Neva Holden MD [facility] [address] [place] [address] PCP - General FAMILY PRACTICE 02/14/20 Asa Mcnamara MD Three [facility]. [facility] [address] [place] [address] [place] Office Automation Clerk CARDIOVASCULAR DISEASE 05/15/16 documented as of this encounter
--- OUTSIDE RECORDS SUMMARY | 2024-11-12 05:27 | XMS_ITS | Encounter Summary ---
Author Organization [facility] - [facility] Address [address] [facility]. [place], [place] [address] [place] [address] Care Team Providers Care Leather Whitener Name Role Phone Asa Mcnamara MD Unavailable [phone] Neva Holden MD Primary Care Provider [phone] Reason for Visit * Reason Comments Follow Up left foot wart area feeling better and xray results * Consultation/Treatment (Routine) - Closed Specialty Diagnoses / Procedures Referred By Contac t Referred To Contact Standards Analyst - Foot & Ankle Surgery / PODIATRY Diagnoses wart/callus left Procedures NEW PATIENT Neva Holden MD . [facility] [address] Phone: tel: fax: Annie Jaquez DPM [address] [place] [phone] Phone: tel: fax: Referral ID Status Reason Start Date Expiration Date Visits Re quested Visits Authorized [id number] Closed 12/06/2019 12/06/2020 99 99 Encounter Details Date Type Department Care Team (Late st Contact Info) Description 02/22/2020 11:20 AM CDT Office Visit [facility] - [address] [address] Annie Jaquez DPM [address] [place] [phone] Follow Up (left foot wart area feeling [...] Sex Assigned at Female 12/06/2019 3:36 PM FIRST LINE SUPERVISOR Legal Sex Female 5:20 PM CDT Gender Identity Female 12/06/2019 3:36 PM FIRST LINE SUPERVISOR Sexual Orientation Straight 12/06/2019 3: 36 PM FIRST LINE SUPERVISOR Occupation Industry Job Start Date Job [...] Disp: , Rfl: ??? vitamin D2, ergocalciferol, 52944 UNITS capsule, Take 50,000 Units by mouth every 7 days., Disp: , Rfl: Allergies Allergen Reactions ??? Wasp Venom Protein Anaphylaxis ??? Codeine Nausea and Vomiting ??? Haloperidol Seizure ??? Penicillins Redness ??? Resperal-Dm [Nlv-Ss-Ytc-Propyl Qkmarl-Ixq-Jvpszbqrg] Seizure ??? Simvastatin Other (see comment) Cant [...] foot documented in this encounter Care Teams Leather Whitener Relationship Specialty Start Date End Date Neva Holden MD [facility] [address] PCP - General FAMILY PRACTICE 02/14/20 Asa Mcnamara MD [facility]. [facility] [address] [place] [address] Stephen Manager Of International CARDIOVASCULAR DISEASE 05/15/16 documented as of this encounter
--- OUTSIDE RECORDS SUMMARY | 2024-11-12 05:27 | XMS_ITS | Encounter Summary ---
Author Organization [facility] Address [facility] [place] [address] [place] [address] Care Team Providers Care Senior Research Analyst Name Role Phone Asa Mcnamara MD Unavailable [phone] Neva Holden MD Primary Care Provider [phone] Reason for Visit * Reason Onset Date Comments Refill Request 08/19/2020 zetia and imdur Encounter Details Date Type Department Care Team (Late st Contact Info) Description 08/19/2020 Telephone [facility] at [facility], [facility] [address] [place] [address] Asa Mcnamara MD [facility]. [facility] [address] [place] [address] Refill Request (zetia and imdur) Social History Tobacco Use Types Packs/Day Years Used Date Smoking Tobacco: Every Day Cigarettes Smokeless Tobacco: Never Comments:1 pk day Alcohol Use Standard Drinks/Week Comments No 0 (1 standard drink = 0.6 oz pur e alcohol) Comments Unknown Sex and Gender Information Value Date Recorded Sex Assigned at Female 12/06/2019 3:36 PM MOBILE PARAMEDICAL EXAMINER Legal Sex Female 5:20 PM CDT Gender Identity Female 12/06/2019 3:36 PM MOBILE PARAMEDICAL EXAMINER Sexual Orientation Straight 12/06/2019 3: 36 PM MOBILE PARAMEDICAL EXAMINER Occupation Industry Job Start Date Job End Date Not on file Not on file Not on file Not on file documented as of this encounter Plan of Treatment Not on file documented as of this encounter Visit Diagnoses Not on filedocumented in this encounter Care Teams Senior Research Analyst Relationship Specialty Start Date End Date Neva Holden MD . [facility] [address] [place] [address] PCP - General FAMILY PRACTICE 02/14/20 Asa Mcnamara MD [facility]. [facility] [address] [place] [address] [employer] Teacher'S Assistant CARDIOVASCULAR DISEASE 05/15/16 documented as of this encounter
--- OUTSIDE RECORDS SUMMARY | 2024-11-12 05:27 | XMS_ITS | Encounter Summary ---
Author Organization [facility] Address [address] [facility]. [place], [place] [address] [place] [address] Care Team Providers Care Managing Director Name Role Phone Asa Mcnamara MD Unavailable [phone] Neva Holden MD Primary Care Provider [phone] Encounter Details Date Type Department Care Team [...] Sex Assigned at Female 12/06/2019 3:36 PM BACK PAD INSPECTOR Legal Sex Female 5:20 PM CDT Gender Identity Female 12/06/2019 3:36 PM BACK PAD INSPECTOR Sexual Orientation Straight 12/06/2019 3: 36 PM BACK PAD INSPECTOR Occupation Industry Job Start Date Job [...] on filedocumented in this encounter Care Teams Managing Director Relationship Specialty Start Date End Date Neva Holden MD [facility] [place] [address] PCP - General FAMILY PRACTICE 02/14/20 Asa Mcnamara MD [facility] [address] [place] [address] [place] Ribbon Sweatband Operator CARDIOVASCULAR DISEASE 05/15/16 documented as of this encounter
--- OUTSIDE RECORDS SUMMARY | 2024-11-12 05:27 | XMS_ITS | Encounter Summary ---
Author Organization [facility] Address [address] [place] [address] Phone Care Team Providers Care Carbon Paste Mixer Operator Name Role Phone Unavailable Primary Care Provider Unavailabl e Encounter Details Date Type Department Care Team (Late st Contact Info) Description 12/24/2015 Legacy Encounter - Labs [facility] [address] [place], [place] [id number], [place] [address] Munira Heller MD [address] [facility], SUITE [facility] [place] [address] Social History Tobacco Use Types Packs/Day Years [...] COPY SENT TO: Routine 12/24/2015 11:03 AM CHIEF ENGINEER PRODUCTION ANCA SCREEN W/ VASCULITIDES (MPO, PR3) Routine 12/24/2015 11:03 AM CHIEF ENGINEER PRODUCTION EOSINOPHIL COUNT (U) Routine 12/24/2015 11:03 AM CHIEF ENGINEER PRODUCTION ANTINUCLEAR ANTIBODIES TITER AND PATTERN Routine 12/24/2015 11:03 AM CHIEF ENGINEER PRODUCTION ANTINUCLEAR ANTIBODIES TITER AND PATTERN Routine 12/24/2015 11:03 AM CHIEF ENGINEER PRODUCTION CHLORIDE, URINE, RANDOM Routine 12/24/2015 11:03 AM CHIEF ENGINEER PRODUCTION CHLORIDE, URINE, RANDOM Routine 12/24/2015 11:03 AM CHIEF ENGINEER PRODUCTION SODIUM, URINE RANDOM Routine 12/24/2015 11:03 AM CHIEF ENGINEER PRODUCTION SODIUM, URINE RANDOM Routine 12/24/2015 11:03 AM CHIEF ENGINEER PRODUCTION RENAL FUNCTION PANEL (RFP) Routine 12/24/2015 11:03 AM CHIEF ENGINEER PRODUCTION ANCA SCREEN W/ MPO AND PR3 W/ REFLEX TO TITER Routine 12/24/2015 11:03 AM CHIEF ENGINEER PRODUCTION COMPLEMENT C3 + C4 Routine 12/24/2015 11 :03 AM CHIEF ENGINEER PRODUCTION COMPLEMENT C3 + C4 Routine 12/24/2015 11 :03 AM CHIEF ENGINEER PRODUCTION PROTEIN ELECTROPHORESIS, URINE, RANDOM Routine 12/24/2015 11:03 AM CHIEF ENGINEER PRODUCTION PROTEIN ELECTROPHORESIS, URINE, RANDOM Routine 12/24/2015 11:03 AM CHIEF ENGINEER PRODUCTION PROTEIN ELECTROPHORESIS, URINE, RANDOM Routine 12/24/2015 11:03 AM CHIEF ENGINEER PRODUCTION PROTEIN ELECTROPHORESIS, URINE, RANDOM Routine 12/24/2015 11:03 AM CHIEF ENGINEER PRODUCTION GLOMERULAR BASEMENT MEMBRANE ANTIBODY (IGG), SERUM Routine 12/24/2015 11:03 AM CHIEF ENGINEER PRODUCTION DSDNA AB, SERUM Routine 12/24/2015 11:03 AM CHIEF ENGINEER PRODUCTION ANTINUCLEAR ANTIBODIES (TAYLOR), IFA W/ REFL TITER AND PATTERN Routine 12/24/2015 11:03 AM CHIEF ENGINEER PRODUCTION documented in this encounter Results * (ABNORMAL) Antinuclear Antibodies Titer And Pattern (12/24/2015 11:03 AM CHIEF ENGINEER PRODUCTION) TAYLOR Pattern, Serum Homogeneous EXTERNAL LAB TAYLOR, Serum 1:160(A) <1:40 titer EXTERNAL LAB Comment: ??REFERENCE RANGE for TAYLOR Titer: < 1:40 ? . . . Negative ? 1:40 - 1:80 ?? . . . Low Antibody Level > 1:80 ? . . . Elevated Antibody Level 12/24/2015 11:0 3 AM CHIEF ENGINEER PRODUCTION 12/24/2015 11:04 AM CHIEF ENGINEER PRODUCTION Munira Heller MD LAB BLOOD ORDERABLES EXTERNAL LAB * (ABNORMAL) ANCA Screen W/ Mpo And Pr3 W/ Reflex To Anca Titer (12/24/2015 11:03 AM CHIEF ENGINEER PRODUCTION) Neutrophil Cytoplasmic Ab (ANCA), Serum <1:20 <1:20 [...] AI EXTERNAL LAB Comment: Autoantibodies to proteinase-3 (MS-3) are accepted as characteristic for granulomatosis with polyangiitis (Lela's), and are detectable in 95% of the histologically proven cases. The cytoplasmic IFA pattern (c-ANCA) is based largely on autoantibody to MS-3 which serves as the primary antigen. These [...] of this test have been determined by [employer], [place], [place]. This test should not be used for diagnosis without confirmation by other medically established means. 12/24/2015 11:0 3 AM CHIEF ENGINEER PRODUCTION 12/24/2015 11:04 AM CHIEF ENGINEER PRODUCTION Munira Heller MD LAB BLOOD ORDERABLES Performing Organization Address [facility] Co de Phone Number EXTERNAL LAB * ANCA Vasculitides (12/24/2015 11:03 AM CHIEF ENGINEER PRODUCTION) Myeloperoxidase Ab, Serum <1.0 AI EXTERNAL LAB [...] 1.0 ?? Antibody Detected Autoantibodies to proteinase-3 (MS-3) are accepted as characteristic for granulomatosis with polyangiitis (Lela's), and are detectable in 95% of the histologically proven cases. The cytoplasmic IFA pattern,(c-ANCA), is based largely on autoantibody to MS-3 which serves as the primary antigen. These autoantibodies are present in active disease state. 12/24/2015 11:0 3 AM CHIEF ENGINEER PRODUCTION 12/24/2015 11:04 AM CHIEF ENGINEER PRODUCTION Munira Heller MD LAB BLOOD ORDERABLES Performing Organization Address City/[facility]/ZIP Co de Phone Number EXTERNAL LAB * DNA (DS) Antibody (12/24/2015 11:03 AM CHIEF ENGINEER PRODUCTION) DNA double strand Ab, Serum <1 IU/mL EXTERNAL LAB Comment: ? IU/mL ? Interpretation < or = 4 ?Negative ? 5-9 ? Indeterminate > or = 10 ?? Positive 12/24/2015 11:0 3 AM CHIEF ENGINEER PRODUCTION 12/24/2015 11:04 AM CHIEF ENGINEER PRODUCTION Munira Heller MD LAB BLOOD ORDERABLES Performing Organization Address [facility] de Phone Number EXTERNAL LAB * (ABNORMAL) Antinuclear Antibodies Titer And Pattern (12/24/2015 11:03 AM CHIEF ENGINEER PRODUCTION) TAYLOR Pattern, Serum HOMOGENEOU S(A) EXTERNAL LAB TAYLOR, Serum 1:40(H) titer EXTERNAL LAB Comment: ?Reference Range <1:40 ?Negative ?1:40-1:80 ?Low Antibody Level >1:80 ?Elevated Antibody Level 12/24/2015 11:0 3 AM CHIEF ENGINEER PRODUCTION 12/24/2015 11:04 AM CHIEF ENGINEER PRODUCTION Munira Heller MD LAB BLOOD ORDERABLES Performing Organization Address [facility] de Phone Number EXTERNAL LAB * (ABNORMAL) TAYLOR Screen Ifa W/ Refl Titer And Pattern (12/24/2015 11:03 AM CHIEF ENGINEER PRODUCTION) TAYLOR, Serum POSITIVE(A) NEGATIVE EXTERNAL LAB 12/24/2015 11:0 3 AM CHIEF ENGINEER PRODUCTION 12/24/2015 11:04 AM CHIEF ENGINEER PRODUCTION Munira Heller MD LAB BLOOD ORDERABLES Performing Organization Address City/[facility] Co de Phone Number EXTERNAL LAB * Eosinophil Count (U) (12/24/2015 11:03 AM CHIEF ENGINEER PRODUCTION) Eosinophils/100 leukocytes, Urine sediment 0 See Note: % eos EXTERNAL LAB Comment: Reference Range: No Normals Established Few WBC seen. No eosinophils noted. 12/24/2015 11:0 3 AM CHIEF ENGINEER PRODUCTION 12/24/2015 11:04 AM CHIEF ENGINEER PRODUCTION Munira Heller MD LAB BLOOD ORDERABLES Performing Organization Address [facility] Co de Phone Number EXTERNAL LAB * Glomerular Basement Membrane Antibody (IGG) (12/24/2015 11:03 AM CHIEF ENGINEER PRODUCTION) Basement membrane IgG Ab, Serum <1.0 <1.0 AI EXTERNAL LAB Comment: Interpretation: < 1.0 AI No Antibody Detected > OR = 1.0 AI Antibody Detected 12/24/2015 11:0 3 AM CHIEF ENGINEER PRODUCTION 12/24/2015 11:04 AM CHIEF ENGINEER PRODUCTION Munira Heller MD LAB BLOOD ORDERABLES Performing Organization Address [facility] Co de Phone Number EXTERNAL LAB * Renal Function Panel (12/24/2015 11:03 AM CHIEF ENGINEER PRODUCTION) Glucose, Serum/Plasma 78 65 - 99 mg/dL EXTERNAL LAB Comment:Fasting reference in terval Urea nitrogen, Serum/Plasma (BUN) 19 7 - 25 mg/dL EXTERNAL LAB Creatinine, Serum/Plasma 0.75 0.50 - 1.05 mg/dL EXTERNAL LAB Comment: For patients >49 years of age, the reference limit for Creatinine is approximately 13% higher for people identified as -Bermudian. eGFR, non 91 > OR = 60 [...] g/dL EXTERNAL LAB 12/24/2015 11:0 3 AM CHIEF ENGINEER PRODUCTION 12/24/2015 11:04 AM CHIEF ENGINEER PRODUCTION Munira Heller MD LAB BLOOD ORDERABLES Performing Organization Address City/[facility] Co de Phone Number EXTERNAL LAB * Protein Total And Protein Electrophoresis (Urine) (12/24/2015 11:03 AM CHIEF ENGINEER PRODUCTION) Albumin/Protein, total 71 % EXTERNAL LAB Alpha [...] protein is observed. 12/24/2015 11:0 3 AM CHIEF ENGINEER PRODUCTION 12/24/2015 11:04 AM CHIEF ENGINEER PRODUCTION Munira Heller MD LAB URINE ORDERABLES EXTERNAL LAB * (ABNORMAL) Protein Total And Protein Electrophoresis (Urine) (12/24/2015 11:03 AM CHIEF ENGINEER PRODUCTION) Creatinine, Urine 235 20 - 320 mg/dL EXTERNAL LAB Protein/Creatin ine, Urine 451(H) 21 - 161 mg/g creat EXTERNAL LAB Protein, Urine 106(H) 5 - 24 mg/dL EXTERNAL LAB 12/24/2015 11:0 3 AM CHIEF ENGINEER PRODUCTION 12/24/2015 11:04 AM CHIEF ENGINEER PRODUCTION Munira Heller MD LAB URINE ORDERABLES Performing Organization Address City/[facility]/ZIP Co de Phone Number EXTERNAL LAB * (ABNORMAL) Protein Total And Protein Electrophoresis (Urine) (12/24/2015 11:03 AM CHIEF ENGINEER PRODUCTION) Albumin, Serum/Plasma 4.2 3.8 - 4.8 g/dL [...] ( M-spike) seen. 12/24/2015 11:0 3 AM CHIEF ENGINEER PRODUCTION 12/24/2015 11:04 AM CHIEF ENGINEER PRODUCTION Munira Heller MD LAB URINE ORDERABLES EXTERNAL LAB * Protein Total And Protein Electrophoresis (Urine) (12/24/2015 11:03 AM CHIEF ENGINEER PRODUCTION) Protein, Serum/Plasma 7.7 6.1 - 8.1 g/dL EXTERNAL LAB 12/24/2015 11:0 3 AM CHIEF ENGINEER PRODUCTION 12/24/2015 11:04 AM CHIEF ENGINEER PRODUCTION Munira Heller MD LAB URINE ORDERABLES Performing Organization Address [facility] Co de Phone Number EXTERNAL LAB * Complement Comp C3 + C4 (12/24/2015 11:03 AM CHIEF ENGINEER PRODUCTION) Complement C4, Serum/Plasma 36 16 - 47 mg/dL EXTERNAL LAB 12/24/2015 11:0 3 AM CHIEF ENGINEER PRODUCTION 12/24/2015 11:04 AM CHIEF ENGINEER PRODUCTION Munira Heller MD LAB BLOOD ORDERABLES Performing Organization Address [facility] de Phone Number EXTERNAL LAB * (ABNORMAL) Complement Comp C3 + C4 (12/24/2015 11:03 AM CHIEF ENGINEER PRODUCTION) Complement C3, Serum/Plasma 183(H) 90 - 180 mg/dL EXTERNAL LAB 12/24/2015 11:0 3 AM CHIEF ENGINEER PRODUCTION 12/24/2015 11:04 AM CHIEF ENGINEER PRODUCTION Munira Heller MD LAB BLOOD ORDERABLES Performing Organization Address [facility] Co de Phone Number EXTERNAL LAB * Sodium, Urine Random (12/24/2015 11:03 AM CHIEF ENGINEER PRODUCTION) Creatinine, Urine 235 20 - 320 mg/dL EXTERNAL LAB 12/24/2015 11:0 3 AM CHIEF ENGINEER PRODUCTION 12/24/2015 11:04 AM CHIEF ENGINEER PRODUCTION Munira Heller MD LAB URINE ORDERABLES Performing Organization Address [facility] Co de Phone Number EXTERNAL LAB * (ABNORMAL) Sodium, Urine Random (12/24/2015 11:03 AM CHIEF ENGINEER PRODUCTION) Sodium/Creatini ne, Urine 16(L) 28 - 280 mmol/g creat EXTERNAL LAB Sodium, Urine 37 28 - 272 mmol/L EXTERNAL LAB 12/24/2015 11:0 3 AM CHIEF ENGINEER PRODUCTION 12/24/2015 11:04 AM CHIEF ENGINEER PRODUCTION Munira Heller MD LAB URINE ORDERABLES Performing Organization Address [facility] de Phone Number EXTERNAL LAB * Chloride, Urine Random (12/24/2015 11:03 AM CHIEF ENGINEER PRODUCTION) Creatinine, Urine 235 20 - 320 mg/dL EXTERNAL LAB 12/24/2015 11:0 3 AM CHIEF ENGINEER PRODUCTION 12/24/2015 11:04 AM CHIEF ENGINEER PRODUCTION Munira Heller MD LAB URINE ORDERABLES Performing Organization Address [facility] Co de Phone Number EXTERNAL LAB * (ABNORMAL) Chloride, Urine Random (12/24/2015 11:03 AM CHIEF ENGINEER PRODUCTION) Chloride/Creati nine, Urine 27(L) 38 - 318 mmol/g creat EXTERNAL LAB Chloride, Urine 64 32 - 290 mmol/L EXTERNAL LAB 12/24/2015 11:0 3 AM CHIEF ENGINEER PRODUCTION 12/24/2015 11:04 AM CHIEF ENGINEER PRODUCTION Munira Heller MD LAB URINE ORDERABLES Performing Organization Address [facility] de Phone Number EXTERNAL LAB * Copy Sent To: (12/24/2015 11:03 AM CHIEF ENGINEER PRODUCTION) COPY(IES) SENT TO: EXTERNAL LAB Comment: ?[facility] ?[address] [address] 12/24/2015 11:0 3 AM CHIEF ENGINEER PRODUCTION 12/24/2015 11:04 AM CHIEF ENGINEER PRODUCTION Munira Heller MD LAB BLOOD ORDERABLES Performing Organization Address [facility] de Phone Number EXTERNAL LAB documented in this encounter Visit Diagnoses Not on filedocumented in this encounter
--- OUTSIDE RECORDS SUMMARY | 2024-11-12 05:27 | XMS_ITS | Encounter Summary ---
Author Organization [facility] Address Critical access hospital6 [facility] [place] [address] [place] [address] Care Team Providers Care Auto Claim Representative Name Role Phone Asa Mcnamara MD Unavailable [phone] Neva Holden MD Primary Care Provider [phone] Reason for Visit * Reason Onset Date Comments Other 02/19/2020 Encounter Details Date Type Department Care Team (Late st Contact Info) Description 02/19/2020 Telephone [facility] at [facility], [facility] [address] [place] [address] Asa Mcnamara MD [facility]. [facility] [address] [place] [address] Other Social History Tobacco Use Types Packs/Day Years Used Date Smoking Tobacco: Every Day Cigarettes Smokeless Tobacco: Never Comments:1 pk day Alcohol Use Standard Drinks/Week Comments No 0 (1 standard drink = 0.6 oz pur e alcohol) Comments Unknown Sex and Gender Information Value Date Recorded Sex Assigned at Female 12/06/2019 3:36 PM DIGITAL COMMENTATOR Legal Sex Female 5:20 PM CDT Gender Identity Female 12/06/2019 3:36 PM DIGITAL COMMENTATOR Sexual Orientation Straight 12/06/2019 3: 36 PM DIGITAL COMMENTATOR Occupation Industry Job Start Date Job End [...] on filedocumented in this encounter Care Teams Auto Claim Representative Relationship Specialty Start Date End Date Neva Holden MD [facility] [address] [place] [address] PCP - General FAMILY PRACTICE 02/14/20 Asa Mcnamara MD [facility] [address] [place] [address] [place] Course Developer CARDIOVASCULAR DISEASE 05/15/16 documented as of this encounter
--- OUTSIDE RECORDS SUMMARY | 2024-11-12 05:27 | XMS_ITS | Encounter Summary ---
Author Organization [facility] Address [address] [place] [address] Phone Care Team Providers Care Lithograph Operator Name Role Phone Unavailable Primary Care Provider Unavailabl e Encounter Details Date Type Department Care Team (Late st Contact Info) Description 11/12/2015 Legacy Encounter - Labs [facility]ORICAL CONVERSION CENTRAL [address] [place], [place] [id number], [place] [address] Munira Heller MD [address] [facility], [address] [facility] [place] [address] Social History Tobacco Use Types Packs/Day Years [...] MANUALLY ENTERED ORDER Routine 11/12/2015 12:00 AM FIELD INVESTIGATOR documented in this encounter Results * Manually Entered Order (11/12/2015 12:00 AM FIELD INVESTIGATOR) CHOLESTEROL 204 EXTERNAL LAB TRIGLYCERIDES 203 EXTERNAL LAB Cholesterol, HDL 48 EXTERNAL LAB LDL 115 EXTERNAL LAB Hemoglobin A1c % 6.0 EXTERNAL LAB 11/12/2015 Munira Heller MD LAB BLOOD ORDERABLES EXTERNAL LAB documented in this encounter Visit Diagnoses Not on filedocumented in this encounter
--- OUTSIDE RECORDS SUMMARY | 2024-11-12 05:27 | XMS_ITS | Encounter Summary ---
Author Organization [facility] Address [facility] [place] [address] [place] [address] Care Team Providers Care Radiation Therapist Name Role Phone Asa Mcnamara MD Unavailable [phone] Deisi Andrews MD Primary Care Provider [phone] Encounter Details Date Type Department Care Team (Late st Contact Info) Description 01/29/2020 Orders Only [facility] at [address] [phone] Suzanne Corado, A Social History Tobacco Use Types Packs/Day Years Used Date Smoking Tobacco: Every Day Cigarettes Smokeless Tobacco: Never Comments:1 pk day Alcohol Use Standard Drinks/Week Comments No 0 (1 standard drink = 0.6 oz pur e alcohol) Comments Unknown Sex and Gender Information Value Date Recorded Sex Assigned at Female 12/06/2019 3:36 PM MINE ENGINEER Legal Sex Female 5:20 PM CDT Gender Identity Female 12/06/2019 3:36 PM MINE ENGINEER Sexual Orientation Straight 12/06/2019 3: 36 PM MINE ENGINEER Occupation Industry Job Start Date Job [...] Extremity Vascular Ultraso und Asa Mcnamara MD [facility] Final Result documented in this encounter Visit Diagnoses Diagnosis PVD (peripheral vascular disease) with claudication ([facility]) Peripheral vascular disease, unspecified documented in this encounter Care Teams Radiation Therapist Relationship Specialty Start Date End Date Deisi Andrews MD [address] [place] [address] [place] [address] PCP - General FAMILY PRACTICE 12/06/19 02/13/20 Asa Mcnamara MD [facility] [address] [place] [address] [place] [employer] Winder CARDIOVASCULAR DISEASE 05/15/16 documented as of this encounter
--- OUTSIDE RECORDS SUMMARY | 2024-11-12 05:27 | XMS_ITS | Encounter Summary ---
Author Organization [facility] Address [facility]6 [facility]. [place], [place] [address] [place] [address] Care Team Providers Care Manager Cardiac Name Role Phone Asa Mcnamara MD Unavailable [phone] Neva Holden MD Primary Care Provider [phone] Encounter Details Date Type Department Care Team [...] Sex Assigned at Female 12/06/2019 3:36 PM INSTALLER SOFT TOP Legal Sex Female 5:20 PM CDT Gender Identity Female 12/06/2019 3:36 PM INSTALLER SOFT TOP Sexual Orientation Straight 12/06/2019 3: 36 PM INSTALLER SOFT TOP Occupation Industry Job Start Date Job End Date Not on file Not on file Not on file Not on file documented as of this encounter Plan of Treatment Not on file documented as of this encounter Visit Diagnoses Not on filedocumented in this encounter Care Teams Manager Cardiac Relationship Specialty Start Date End Date Neva Holden MD . [facility] [address] [place] [address] PCP - General FAMILY PRACTICE 02/14/20 Asa Mcnamara [address] [facility]. [facility] [address] [place] [address] [place] Planner Internship CARDIOVASCULAR DISEASE 05/15/16 documented as of this encounter
--- OUTSIDE RECORDS SUMMARY | 2024-11-12 05:27 | XMS_ITS | Encounter Summary ---
Author Organization [facility] Address [address] [place] [address] [place] [address] Care Team Providers Care Director Of Cloud Services Name Role Phone Asa Mcnamara MD Unavailable [phone] Deisi Andrews MD Primary Care Provider [phone] Reason for Referral * Imaging (Routine) - Closed Specialty Diagnoses / Procedures Referred By Nacho brooks Referred To Contact RADIOLOGY Diagnoses PVD (peripheral vascular disease) with claudication ([facility]/HCC) Procedures USV ART REST W KENZIE LOW EXT Asa Mcnamara MD [facility]. [facility] [address] [place] [address] Phone: tel: fax: Referral ID Status Reason Start Date Expiration Date Visits Re quested Visits Authorized [id number] Closed 01/05/2020 02/02/[address] MAIL MANAGER Encounter Details Date Type Department Care Team (Late st Contact Info) Description 01/05/2020 Orders Only [facility] [address] [place] [address] Asa Mcnamara MD [facility]. [facility] [address] [place] [address] Social History Tobacco Use Types Packs/Day Years Used Date Smoking Tobacco: Every Day Cigarettes Smokeless Tobacco: Never Comments:1 pk day Alcohol Use Standard Drinks/Week Comments No 0 (1 standard drink = 0.6 oz pur e alcohol) Comments Unknown Sex and Gender Information Value Date Recorded Sex Assigned at Female 12/06/2019 3:36 PM DIRECT MAIL MANAGER Legal Sex Female 5:20 PM CDT Gender Identity Female 12/06/2019 3:36 PM DIRECT MAIL MANAGER Sexual Orientation Straight 12/06/2019 3: 36 PM DIRECT MAIL MANAGER Occupation Industry Job Start Date Job [...] Diagnosis PVD (peripheral vascular disease) with claudication ([facility])- Primary Peripheral vascular disease, unspecified Other specified symptoms and signs involving the circulatory and respiratory systems Precordial chest pain Precordial pain documented in this encounter Care Teams Director Of Cloud Services Relationship Specialty Start Date End Date Deisi Andrews MD [address] [place] [address] [place] [address] PCP - General FAMILY PRACTICE 12/06/19 02/13/20 Asa Mcnamara MD [facility]. [facility] [address] [place] [address] [place] Manufacturing Finance Manager CARDIOVASCULAR DISEASE 05/15/16 documented as of this encounter
--- OUTSIDE RECORDS SUMMARY | 2024-11-12 05:27 | XMS_ITS | Encounter Summary ---
Author Organization [facility] Address [facility]6 [facility] [place] [address] [place] [address] Care Team Providers Care Undergraduate Advisor Name Role Phone Asa Mcnamara MD Unavailable [phone] Neva Holden MD Primary Care Provider [phone] Encounter Details Date Type Department Care Team (Late st Contact Info) Description 07/02/2020 Orders Only [facility] at [address] [id number] Karen Barboza, RN Social History Tobacco Use Types Packs/Day Years Used Date Smoking Tobacco: Every Day Cigarettes Smokeless Tobacco: Never Comments:1 pk day Alcohol Use Standard Drinks/Week Comments No 0 (1 standard drink = 0.6 oz pur e alcohol) Comments Unknown Sex and Gender Information Value Date Recorded Sex Assigned at Female 12/06/2019 3:36 PM OPTICAL WORKER Legal Sex Female 5:20 PM CDT Gender Identity Female 12/06/2019 3:36 PM OPTICAL WORKER Sexual Orientation Straight 12/06/2019 3: 36 PM OPTICAL WORKER Occupation Industry Job Start Date Job [...] on filedocumented in this encounter Care Teams Undergraduate Advisor Relationship Specialty Start Date End Date Neva Holden MD [facility] [address] [place] [address] PCP - General FAMILY PRACTICE 02/14/20 Asa Mcnamara MD [facility] [address] [place] [address] [place] Air Conditioning Mechanic Industrial CARDIOVASCULAR DISEASE 05/15/16 documented as of this encounter
--- OUTSIDE RECORDS SUMMARY | 2024-11-12 05:27 | XMS_ITS | Encounter Summary ---
Author Organization [facility] Address [address] [facility]. [place], [place] [address] [place] [address] Care Team Providers Care Paperhanger Contractor Name Role Phone Asa Mcnamara MD Unavailable [phone] Deisi Andrews MD Primary Care Provider [phone] Reason for Visit * Reason Comments Ingrown Toenail left great toe feels ingrown also left foot wart area has been burning * Consultation/Treatment (Routine) - Closed Specialty Diagnoses / Procedures Referred By Nacho brooks Referred To Contact Criminal Analyst - Foot & Ankle Surgery / PODIATRY Diagnoses wart/callus left Procedures NEW PATIENT Neva Holden MD . [facility] [address] Phone: tel: fax: Annie Jaquez, DPM [address] [place] [address] Phone: tel: fax: Referral ID Status Reason Start Date Expiration Date Visits Re quested Visits Authorized [id number] Closed 12/06/2019 12/06/2020 99 99 Encounter Details Date Type Department Care Team (Late st Contact Info) Description 01/24/2020 10:20 AM CDT Office Visit [facility] - [address] [phone] Annie Jaquez, DPM [address] [place] [address] Ingrown Toenail (left great toe [...] Sex Assigned at Female 12/06/2019 3:36 PM HEALTH COACH Legal Sex Female 5:20 PM CDT Gender Identity Female 12/06/2019 3:36 PM HEALTH COACH Sexual Orientation Straight 12/06/2019 3: 36 PM HEALTH COACH Occupation Industry Job Start Date Job End [...] total) by mouth daily. Prior Auth APPROVED [id number] 01-28-2020., Disp: , Rfl: ??? famotidine 20 [...] Disp: , Rfl: ??? vitamin D2, ergocalciferol, 15617 UNITS capsule, Take 50,000 Units by mouth every 7 days., Disp: , Rfl: Allergies Allergen Reactions ??? Wasp Venom Protein Anaphylaxis ??? Codeine Nausea and Vomiting ??? Haloperidol Seizure ??? Penicillins Redness ??? Resperal-Dm [Nej-Ka-Tcy-Propyl Ufgwgp-Qam-Ejcvbvgru] Seizure ??? Simvastatin Other (see comment) Cant [...] foot documented in this encounter Care Teams Paperhanger Contractor Relationship Specialty Start Date End Date Deisi Andrews MD [address] [place] [address] [place] [address] PCP - General FAMILY PRACTICE 12/06/19 02/13/20 Asa Mcnamara MD [facility]. [facility] [address] [place] [address] [place] Manager Recovery CARDIOVASCULAR DISEASE 05/15/16 documented as of this encounter
--- OUTSIDE RECORDS SUMMARY | 2024-11-12 05:27 | XMS_ITS | Encounter Summary ---
Author Organization [facility] Address [facility]6 [facility]. [place], [place] [address] [place] [address] Care Team Providers Care Rescue Boat Operator Name Role Phone Asa Mcnamara MD Unavailable [phone] Neva Holden MD Primary Care Provider [phone] Reason for Visit * Reason Onset Date Comments Results 07/29/2020 Encounter Details Date Type Department Care Team (Late st Contact Info) Description 07/29/2020 Telephone [facility] at [address] [address] Karen Barboza RN Results Social History Tobacco Use Types Packs/Day Years Used Date Smoking Tobacco: Every Day Cigarettes Smokeless Tobacco: Never Comments:1 pk day Alcohol Use Standard Drinks/Week Comments No 0 (1 standard drink = 0.6 oz pur e alcohol) Comments Unknown Sex and Gender Information Value Date Recorded Sex Assigned at Female 12/06/2019 3:36 PM PROFESSOR OF PHYSICS Legal Sex Female 5:20 PM CDT Gender Identity Female 12/06/2019 3:36 PM PROFESSOR OF PHYSICS Sexual Orientation Straight 12/06/2019 3: 36 PM PROFESSOR OF PHYSICS Occupation Industry Job Start Date Job End [...] I should be receiving the testing from [facility] in just a few minutes. * Karen Barboza RN - 07/29/2020 1:50 PM CDT Pt left a VM stating that she had some vascular testing done recently at [facility] and would like the results, also states that she has been told that My legs are getting worse, states if needs vascular procedure/surgery she has been told that her insurance will not cover LIZETH, so would have to have done at [facility], asks if she should find a vascular MD/surgeon at [facility]. Message to medical records. Message to Robin. [place]y Barboza R.N. documented in this encounter Plan of Treatment Not on file documented as of this encounter Visit Diagnoses Not on filedocumented in this encounter Care Teams Rescue Boat Operator Relationship Specialty Start Date End Date Neva Holden MD [facility] [place] [address] PCP - General FAMILY PRACTICE 02/14/20 Asa Mcnamara MD Three [facility]. [facility] [address] [place] [address] [place] Pharmaceutical Compounding Supervisor CARDIOVASCULAR DISEASE 05/15/16 documented as of this encounter
--- OUTSIDE RECORDS SUMMARY | 2024-11-12 05:27 | XMS_ITS | Encounter Summary ---
Author Organization [facility] Address [facility]6 [place] [address] [place] [address] Care Team Providers Care Assurance Services Manager Health Care Name Role Phone Asa Mcnamara MD Unavailable [phone] Neva Holden MD Primary Care Provider [phone] Reason for Visit * Reason Onset Date Comments Schedule Test 06/17/2020 Encounter Details Date Type Department Care Team (Late st Contact Info) Description 06/17/2020 Telephone [facility] at [facility], [facility] [address] [place] [address] Asa Mcnamara MD [facility]. [facility] [address] [place] [address] Schedule Test Social History Tobacco Use Types Packs/Day Years Used Date Smoking Tobacco: Every Day Cigarettes Smokeless Tobacco: Never Comments:1 pk day Alcohol Use Standard Drinks/Week Comments No 0 (1 standard drink = 0.6 oz pur e alcohol) Comments Unknown Sex and Gender Information Value Date Recorded Sex Assigned at Female 12/06/2019 3:36 PM MOBILITY ARCHITECT MANAGER Legal Sex Female 5:20 PM CDT Gender Identity Female 12/06/2019 3:36 PM MOBILITY ARCHITECT MANAGER Sexual Orientation Straight 12/06/2019 3: 36 PM MOBILITY ARCHITECT MANAGER Occupation Industry Job Start Date Job [...] AM CDT Aortoiliac and KENZIE's scheduled at [facility] for 07-12-20. Spoke with patient. Date, time and instructions given and mailed. Orders faxed to [facility] at [phone] documented in this encounter Plan of Treatment Not on file documented as of this encounter Visit Diagnoses Not on filedocumented in this encounter Care Teams Assurance Services Manager Health Care Relationship Specialty Start Date End Date Neva Holden MD [facility] [address] [place] [address] PCP - General FAMILY PRACTICE 02/14/20 Asa Mcnamara MD [facility]. [facility] [address] [place] [address] [place] Express Manager CARDIOVASCULAR DISEASE 05/15/16 documented as of this encounter
--- OUTSIDE RECORDS SUMMARY | 2024-11-12 05:27 | XMS_ITS | Encounter Summary ---
Author Organization [facility] Address [facility]6 [facility]. [place], [place] [address] [place] [address] Care Team Providers Care Field Manager Name Role Phone Asa Mcnamara MD Unavailable Neva Holden MD Primary Care Provider [phone] Reason for Visit * Reason Comments Peripheral Vascular Disease 3 month foll ow-up Encounter Details Date Type Department Care Team (Late st Contact Info) Description 06/14/2020 2:00 PM CDT Telemedicine [facility] [address] [place], [place] [id number] Asa Mcnamara MD [facility]. [facility] [address] [place], [place] [id number] Peripheral Vascular Disease (3 month follow-up ) Social History Tobacco Use Types Packs/Day Years Used Date Smoking Tobacco: Every Day Cigarettes Smokeless Tobacco: Never Comments:1 pk day Alcohol Use Standard Drinks/Week Comments No 0 (1 standard drink = 0.6 oz pur e alcohol) Comments Unknown Sex and Gender Information Value Date Recorded Sex Assigned at Female 12/06/2019 3:36 PM CRAYON PAINTER Legal Sex Female 5:20 PM CDT Gender Identity Female 12/06/2019 3:36 PM CRAYON PAINTER Sexual Orientation Straight 12/06/2019 3: 36 PM CRAYON PAINTER Occupation Industry Job Start Date Job End [...] patient aware that the same confidentiality and health information technologist practices apply. The patient joined the video [...] is requesting these tests be done at [facility] in [place]. Insurance is not accepted at [facility]. She has been counseled about regular exercise [...] mm balloon. 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 [...] Disp: , Rfl: ??? vitamin D2, ergocalciferol, 89949 UNITS capsule, Take 50,000 Units by mouth every 7 days., Disp: , Rfl: Allergies Allergen Reactions ??? Penicillins Hives and Redness ??? Wasp Venom Protein Anaphylaxis ??? Codeine Nausea and Vomiting ??? Haloperidol Seizure ??? Ketorolac Tromethamine Unknown ??? Resperal-Dm [Wzc-Rp-Ahd-Propyl Ljxbkd-Syv-Kqivfrimi] Seizure ??? Simvastatin Other (see comment) Cant [...] infarction documented in this encounter Care Teams Field Manager Relationship Specialty Start Date End Date Neva Holden MD [facility] [place] [address] PCP - General FAMILY PRACTICE 02/14/20 Asa Mcnamara MD [facility]. [facility] [address] [place] [address] Stephen Casing Cleaner CARDIOVASCULAR DISEASE 05/15/16 documented as of this encounter
--- OUTSIDE RECORDS SUMMARY | 2024-11-12 05:27 | XMS_ITS | Encounter Summary ---
Author Organization [facility] Address [facility] [place] [address] [place] [address] Care Team Providers Care Golf Course Superintendent Name Role Phone Asa Mcnamara MD Unavailable [phone] eNva Holden MD Primary Care Provider [phone] Reason for Visit * Reason Onset Date Comments Musculoskeletal Problem 06/17/2020 Encounter Details Date Type Department Care Team (Latest Contact Info) Description 06/17/2020 Telephone [facility] at [address] [address] Karen Barboza RN Musculoskeletal Problem Social History Tobacco Use Types Packs/Day Years Used Date Smoking Tobacco: Every Day Cigarettes Smokeless Tobacco: Never Comments:1 pk day Alcohol Use Standard Drinks/Week Comments No 0 (1 standard drink = 0.6 oz pur e alcohol) Comments Unknown Sex and Gender Information Value Date Recorded Sex Assigned at Female 12/06/2019 3:36 PM MUSIC CRITIC Legal Sex Female 5:20 PM CDT Gender Identity Female 12/06/2019 3:36 PM MUSIC CRITIC Sexual Orientation Straight 12/06/2019 3: 36 PM MUSIC CRITIC Occupation Industry Job Start Date Job End [...] is having vascular [facility] next week at [facility]. Advised to continue to hold crestor [...] on filedocumented in this encounter Care Teams Golf Course Superintendent Relationship Specialty Start Date End Date Neva Holden MD [facility] [place] [address] PCP - General FAMILY PRACTICE 02/14/20 Asa Mcnamara MD [place] [address] [place] [address] Stephen Book Or Script Editor CARDIOVASCULAR DISEASE 05/15/16 documented as of this encounter
--- OUTSIDE RECORDS SUMMARY | 2024-11-12 05:27 | XMS_ITS | Encounter Summary ---
Author Organization [facility] Address [address] [facility] [place], [place] [address] [place] [address] Care Team Providers Care Analytics Leader Name Role Phone Asa Mcnamara MD Unavailable [phone] Neva Holden MD Primary Care Provider [phone] Encounter Details Date Type Department Care Team [...] Sex Assigned at Female 12/06/2019 3:36 PM CREDENTIALING ASSISTANT Legal Sex Female 5:20 PM CDT Gender Identity Female 12/06/2019 3:36 PM CREDENTIALING ASSISTANT Sexual Orientation Straight 12/06/2019 3: 36 PM CREDENTIALING ASSISTANT Occupation Industry Job Start Date Job [...] on filedocumented in this encounter Care Teams Analytics Leader Relationship Specialty Start Date End Date Neva Holden MD [facility] [place] [address] PCP - General FAMILY PRACTICE 02/14/20 Asa Mcnamara MD [facility]. [facility] [address] [place] [address] [place] Bundling Machine Operator CARDIOVASCULAR DISEASE 05/15/16 documented as of this encounter
--- OUTSIDE RECORDS SUMMARY | 2024-11-12 05:27 | XMS_ITS | Encounter Summary ---
Author Organization [facility] Address [address] [facility] [place], [place] [address] [place] [address] Care Team Providers Care Shuttle Veneering Supervisor Name Role Phone Asa Mcnamara MD Unavailable [phone] Deisi Andrews MD Primary Care Provider [phone] Encounter Details Date Type Department Care Team (Latest Contact Info) Description 01/24/2020 11:35 AM CDT - 01/24/2020 11:59 PM CDT Hospital Encounter [facility] [address] [place], [place] [id number] Carlin Jaquez, DPM [address] [place] [address] Discharge Disposition: Home or Self Care (Routine Discharge) Social History Tobacco Use Types Packs/Day Years Used Date Smoking Tobacco: Every Day Cigarettes Smokeless Tobacco: Never Comments:1 pk day Alcohol Use Standard Drinks/Week Comments No 0 (1 standard drink = 0.6 oz pur e alcohol) Comments Unknown Sex and Gender Information Value Date Recorded Sex Assigned at Female 12/06/2019 3:36 PM LICENSED HOME INSPECTOR Legal Sex Female 5:20 PM CDT Gender Identity Female 12/06/2019 3:36 PM LICENSED HOME INSPECTOR Sexual Orientation Straight 12/06/2019 3: 36 PM LICENSED HOME INSPECTOR Occupation Industry Job Start Date Job [...] 30 tablet 3 07/26/2019 vitamin D2, ergocalciferol, 15168 UNITS capsule Take 50,000 Units by mouth [...] foot documented in this encounter Care Teams Shuttle Veneering Supervisor Relationship Specialty Start Date End Date Deisi Andrews MD [address] [place] [address] [place] [address] PCP - General FAMILY PRACTICE 12/06/19 02/13/20 Asa Mcnamara MD [facility] [address] [place] [address] Cly[place] Sand Slinger CARDIOVASCULAR DISEASE 05/15/16 documented as of this encounter
--- OUTSIDE RECORDS SUMMARY | 2024-11-12 05:27 | XMS_ITS | Encounter Summary ---
Author Organization [facility] Address [facility]6 [facility] [place] [address] [place] [address] Care Team Providers Care Sequencing Machine Operator Name Role Phone Asa Mcnamara MD Unavailable [phone] Neva Holden MD Primary Care Provider [phone] Encounter Details Date Type Department Care Team (Late st Contact Info) Description 07/03/2020 Abstract [facility] at [address] [address] Rafael Thakur MA Social History Tobacco Use Types Packs/Day Years Used Date Smoking Tobacco: Every Day Cigarettes Smokeless Tobacco: Never Comments:1 pk day Alcohol Use Standard Drinks/Week Comments No 0 (1 standard drink = 0.6 oz pur e alcohol) Comments Unknown Sex and Gender Information Value Date Recorded Sex Assigned at Female 12/06/2019 3:36 PM HYDROMETER TESTER Legal Sex Female 5:20 PM CDT Gender Identity Female 12/06/2019 3:36 PM HYDROMETER TESTER Sexual Orientation Straight 12/06/2019 3: 36 PM HYDROMETER TESTER Occupation Industry Job Start Date Job [...] on filedocumented in this encounter Care Teams Sequencing Machine Operator Relationship Specialty Start Date End Date Neva Holden MD . [facility] [address] [place] [address] PCP - General FAMILY PRACTICE 02/14/20 Asa Mcnamara MD [facility]. [email or web address] [address] [place] [address] [place] Lumber Driver CARDIOVASCULAR DISEASE 05/15/16 documented as of this encounter
--- OUTSIDE RECORDS SUMMARY | 2024-11-12 05:27 | XMS_ITS | Clinical Summary ---
Author Organization [facility] Address [facility]. [place], [place] [address] [place] [address] Care Team Providers Care Review Appraiser Name Role Phone Asa Mcnamara MD Unavailable [phone] Neva Holden MD Primary Care Provider [phone] Allergies Active Allergy Reactions Criticality Noted Date Comments Codeine Nausea and Vomiting 04/05/2019 Haloperidol Seizure 05/20/2016 Ketorolac Tromethamine Unknown 04/04/2013 Penicillins Hives,Redness High 04/04/2013 Avi-Jh-Ozl-Propyl Gwhqbw-Bbq-Trpvyrlri Seizure 05/20/2016 Risperidone And Related Hives,Other (see [...] tablet 1 0 Active vitamin D2, ergocalciferol, 92468 UNITS capsule Take 50,000 Units by mouth [...] (primary) hypertension PVD (peripheral vascular disease) Emphysema/COPD ([facility]) Diabetes ([facility] Stroke ([facility]) Overview (05/20/2016): h/o Asthma ([facility]) Arthritis GERD (gastroesophageal reflux disease) Migraines Resolved [...] Assigned at Female 12/06/2019 3:36 PM DIGITAL COMPOSER Legal Sex Female 5:20 PM CDT Gender Identity Female 12/06/2019 3:36 PM DIGITAL COMPOSER Sexual Orientation Straight 12/06/2019 3: 36 PM DIGITAL COMPOSER Occupation Industry Job Start Date Job End Date Not on file Not on file Not on file Not on file Last Filed Vital Signs Vital Sign Reading Time Taken Comments Blood Pressure 102/80 06/14/2020 1:49 PM CDT Pulse 98 06/14/2020 1:49 PM CDT Temperature 36.9 ??C (98.4 ??F) 12/07/2017 8:32 AM CS T Respiratory Rate 18 12/07/2017 8:32 AM DIGITAL COMPOSER Oxygen Saturation 95% 02/21/2020 8:36 AM CDT [...] 05/02/2020 LIPID PANEL Routine 12/19/2018 7:52 AM DIGITAL COMPOSER Mixed hyperlipidemia from Last 3 Months or Most Recently Relevant to Health Maintenance Results * HEMOGLOBIN, GLYCOSYLATED (05/02/2020) HGB A1C 7.6 % 05/02/2020 us Doc [facility] LABORATORY Final Result * (ABNORMAL) LIPID PANEL (12/19/2018 7:52 AM DIGITAL COMPOSER) CHOLESTEROL 173 <200 MG/DL 12/19/2018 8:31 AM [facility] TRIGLYCERIDES 155(H) <150 MG/DL 12/19/2018 8:31 AM [facility] HDL 44 >40.0 MG/DL 12/19/2018 8:31 AM [facility] LDL (CALCULATED) 98 <100 MG/DL 12/19/2018 8:31 AM [facility] NON HDL CHOLESTEROL 129 <130 MG/DL 12/19/2018 8:31 AM [facility] CHOL/HDL RATIO 3.9 0.0 - 4.5 12/19/2018 8:31 AM [facility] VLDL CALCULATION 31 5 - 55 MG/DL 12/19/2018 8:31 AM [facility] LIPID INTERPRETATION 12/19/2018 8:31 AM [facility] Comment: NIH CONCENSUS REPORT RECOMMENDATIONS: ?ADULT [...] ?LDL ? >=160 ?>=130 12/19/2018 7:52 AM DIGITAL COMPOSER us Asa Mcnamara MD LABORATORY Final Result [facility] [address] [place] [address], from Last 3 Months or Most Recently Relevant to Health Maintenance Insurance [employer] Care Teams Review Appraiser Relationship Specialty Start Date End Date Neva Holden MD [facility] [address] [place] [address] PCP - General FAMILY PRACTICE 02/14/20 Asa Mcnamara MD [facility] [address] [place] [address] Stephen Platemaker CARDIOVASCULAR DISEASE 05/15/16
--- OUTSIDE RECORDS SUMMARY | 2024-11-12 05:27 | XMS_ITS | Encounter Summary ---
Author Organization [facility] Address [address] [facility]. [place], [place] [address] [place] [address] Care Team Providers Care Lead Principal Technical Architect Name Role Phone Asa Mcnamara MD Unavailable [phone] Neva Holden MD Primary Care Provider [phone] Encounter Details Date Type Department Care Team [...] Sex Assigned at Female 12/06/2019 3:36 PM ENGINEERING INSPECTION ASSISTANT Legal Sex Female 5:20 PM CDT Gender Identity Female 12/06/2019 3:36 PM ENGINEERING INSPECTION ASSISTANT Sexual Orientation Straight 12/06/2019 3: 36 PM ENGINEERING INSPECTION ASSISTANT Occupation Industry Job Start Date Job [...] on filedocumented in this encounter Care Teams Lead Principal Technical Architect Relationship Specialty Start Date End Date Neva Holden MD [facility] [address] [place] [address] PCP - General FAMILY PRACTICE 02/14/20 Asa Mcnamara MD [facility] [address] [place] [address] Boomer Breaker Machine Operator CARDIOVASCULAR DISEASE 05/15/16 documented as of this encounter
--- OUTSIDE RECORDS SUMMARY | 2024-11-12 05:27 | XMS_ITS | Encounter Summary ---
Author Organization [facility] Address [facility], [facility]6 [facility] [place] [address] [place] [address] Care Team Providers Care Administration Professional Name Role Phone Asa Mcnamara MD Unavailable [phone] Neva Holden MD Primary Care Provider [phone] Reason for Visit * Reason Onset Date Comments Lab Results 07/03/2020 Encounter Details Date Type Department Care Team (Late st Contact Info) Description 07/03/2020 Telephone [facility] at [address] [address] Katt Walter RN Lab Results Social History Tobacco Use Types Packs/Day Years Used Date Smoking Tobacco: Every Day Cigarettes Smokeless Tobacco: Never Comments:1 pk day Alcohol Use Standard Drinks/Week Comments No 0 (1 standard drink = 0.6 oz pur e alcohol) Comments Unknown Sex and Gender Information Value Date Recorded Sex Assigned at Female 12/06/2019 3:36 PM BRICK VENEER MAKER Legal Sex Female 5:20 PM CDT Gender Identity Female 12/06/2019 3:36 PM BRICK VENEER MAKER Sexual Orientation Straight 12/06/2019 3: 36 PM BRICK VENEER MAKER Occupation Industry Job Start Date Job End Date Not on file Not on file Not on file Not on file COVID-19 Exposure Response Date Recorded In the last month, have you been in contact with someone who was confirmed or suspected to have Coronavirus / COVID-19? Unable to assess 06/14/2020 2:13 PM CDT documented as of this encounter Progress Notes * Ktat Walter RN - 07/03/2020 1:45 PM CDT [...] on filedocumented in this encounter Care Teams Administration Professional Relationship Specialty Start Date End Date Neva Holden MD [facility] [address] [place] [address] PCP - General FAMILY PRACTICE 02/14/20 Asa Mcnamara MD [facility] [address] [place] [address] [employer] Mortgage Accounting Clerk CARDIOVASCULAR DISEASE 05/15/16 documented as of this encounter
--- OUTSIDE RECORDS SUMMARY | 2024-11-12 05:27 | XMS_ITS | Encounter Summary ---
Author Organization [facility] Address [facility]6 [place] [address] [place] [address] Care Team Providers Care Facial Operator Name Role Phone Asa Mcnamara MD Unavailable [phone] Neva Holden MD Primary Care Provider [phone] Reason for Visit * Reason Onset Date Comments Information 08/01/2020 [facility] Hospital / r ecords received Encounter Details Date Type Department Care Team (Late st Contact Info) Description 08/01/2020 Telephone [facility] at [facility], [facility] [address] [place] [address] Asa Mcnamara MD [facility]. [facility] [address] [place] [address] Information ([facility] / records received) Social History Tobacco [...] 12/06/2019 3: 36 PM PULL SOCKET ASSEMBLER Occupation Industry Job Start Date Job End Date Not on file Not on file Not on file Not on file documented as of this encounter Progress Notes * Mirna Wise - 08/01/2020 3:15 PM CDT 07/29/20 records received from [facility] 07/10/20 Generic Vascular Lab report, 07/10/20 LE ArterialPhysiologic Report documented in this encounter Plan of Treatment Not on file documented as of this encounter Visit Diagnoses Not on filedocumented in this encounter Care Teams Facial Operator Relationship Specialty Start Date End Date Neva Holden MD [facility] [address] [place] [address] PCP - General FAMILY PRACTICE 02/14/20 Asa Mcnamara MD [facility]. [facility] [address] [place] [address] Stephen Dyer Assistant CARDIOVASCULAR DISEASE 05/15/16 documented as of this encounter
--- OUTSIDE RECORDS SUMMARY | 2024-11-12 05:28 | XMS_ITS | Encounter Summary ---
Author Organization [facility] Address Critical access hospital6 [facility] [place] [address] [place] [address] Care Team Providers Care Benefits Counselor Name Role Phone Asa Mcnamara MD Unavailable [phone] Deisi Andrews MD Primary Care Provider [phone] Reason for Visit * Reason Onset Date Comments Other 08/31/2019 Encounter Details Date Type Department Care Team (Late st Contact Info) Description 08/31/2019 Telephone [facility] at [facility], [facility] [address] [place] [address] Asa Mcnamara MD [facility]. [facility] [address] [place] [address] Other Social History Tobacco Use Types Packs/Day Years Used Date Smoking Tobacco: Every Day Cigarettes Smokeless Tobacco: Never Comments:1 pk day Alcohol Use Standard Drinks/Week Comments No 0 (1 standard drink = 0.6 oz pur e alcohol) Comments Unknown Sex and Gender Information Value Date Recorded Sex Assigned at Female 12/06/2019 3:36 PM ELECTRONIC TECHNICIAN Legal Sex Female 5:20 PM CDT Gender Identity Female 12/06/2019 3:36 PM ELECTRONIC TECHNICIAN Sexual Orientation Straight 12/06/2019 3: 36 PM ELECTRONIC TECHNICIAN Occupation Industry Job Start Date Job End Date Not on file Not on file Not on file Not on file documented as of this encounter Progress Notes * Nery Gricel Cadet - 08/31/2019 3:40 PM CDT Patient called about scheduling testing. She was unable to change her insurance (from [place]) andwanted to schedule the testing at [place]. I spoke with Dr. Mcnamara and he advised to hold off on testing for now. Keep follow up apt in Oct. Left message on voicemail for patient with above info. documented in this encounter Plan of Treatment Not on file documented as of this encounter Visit Diagnoses Not on filedocumented in this encounter Care Teams Benefits Counselor Relationship Specialty Start Date End Date Deisi Andrews MD [address] [place] [address] [place] [address] PCP - General FAMILY PRACTICE 06/15/17 10/14/19 Asa Mcnamara MD [facility] [address] [place] [address] [place] Commercial Sales Consultant CARDIOVASCULAR DISEASE 05/15/16 documented as of this encounter
--- OUTSIDE RECORDS SUMMARY | 2024-11-12 05:28 | XMS_ITS | Encounter Summary ---
Author Organization [facility] Address [facility]6 [facility]. [place], [place] [address] [place] [address] Care Team Providers Care Eye Glass Frame Polisher Name Role Phone Asa Mcnamara MD Unavailable [phone] Deisi Andrews MD Primary Care Provider [phone] Encounter Details Date Type Department Care Team (Latest Contact Info) Description 09/07/2018 Abstract [facility] , Heber Trinidad MD Social History Tobacco Use Types Packs/Day Years Used Date Smoking Tobacco: Every Day Cigarettes Smokeless Tobacco: Never Comments:1 pk day Alcohol Use Standard Drinks/Week Comments No 0 (1 standard drink = 0.6 oz pur e alcohol) Comments Unknown Sex and Gender Information Value Date Recorded Sex Assigned at Female 12/06/2019 3:36 PM TEMPLE MEAT CUTTER Legal Sex Female 5:20 PM CDT Gender Identity Female 12/06/2019 3:36 PM TEMPLE MEAT CUTTER Sexual Orientation Straight 12/06/2019 3: 36 PM TEMPLE MEAT CUTTER Occupation Industry Job Start Date Job End Date Not on file Not on file Not on file Not on file documented as of this encounter Plan of Treatment Not on file documented as of this encounter Visit Diagnoses Not on filedocumented in this encounter Care Teams Eye Glass Frame Polisher Relationship Specialty Start Date End Date Deisi Andrews MD [address] [place], [place] [address], [place] [address] PCP - General FAMILY PRACTICE 06/15/17 10/14/19 Asa Mcnamara MD Three [facility]. [facility] [address] [place] [address] [employer] Auto Camp Attendant CARDIOVASCULAR DISEASE 05/15/16 documented as of this encounter
--- OUTSIDE RECORDS SUMMARY | 2024-11-12 05:28 | XMS_ITS | Encounter Summary ---
Author Organization [facility] Address [facility]6 [facility]. [place], [place] [address] [place] [address] Care Team Providers Care Deputy Building Guard Name Role Phone Asa Mcnamara MD Unavailable [phone] Deisi Andrews MD Primary Care Provider [phone] Encounter Details Date Type Department Care Team (Late st Contact Info) Description 08/24/2018 Orders Only [facility] at [address] [address] Lm Acharya, A Social History Tobacco Use Types Packs/Day Years Used Date Smoking Tobacco: Every Day Cigarettes Smokeless Tobacco: Never Comments:1 pk day Alcohol Use Standard Drinks/Week Comments No 0 (1 standard drink = 0.6 oz pur e alcohol) Comments Unknown Sex and Gender Information Value Date Recorded Sex Assigned at Female 12/06/2019 3:36 PM CLOTH MEASURER MACHINE Legal Sex Female 5:20 PM CDT Gender Identity Female 12/06/2019 3:36 PM CLOTH MEASURER MACHINE Sexual Orientation Straight 12/06/2019 3: 36 PM CLOTH MEASURER MACHINE Occupation Industry Job Start Date Job End Date Not on file Not on file Not on file Not on file documented as of this encounter Plan of Treatment Not on file documented as of this encounter Visit Diagnoses Not on filedocumented in this encounter Care Teams Deputy Building Guard Relationship Specialty Start Date End Date Deisi Andrews MD NPI: [id number] [place] [address] [place] [address] PCP - General FAMILY PRACTICE 06/15/17 10/14/19 Asa Mcnamara MD [facility]. [facility] [address] [place] [address] Swanzey Time Broker CARDIOVASCULAR DISEASE 05/15/16 documented as of this encounter
--- OUTSIDE RECORDS SUMMARY | 2024-11-12 05:28 | XMS_ITS | Encounter Summary ---
Author Organization [facility] Address [facility]6 [facility] [place] [address] [place] [address] Care Team Providers Care Banquet Houseperson Name Role Phone Asa Mcnamara MD Unavailable [phone] Deisi Andrews MD Primary Care Provider [phone] Encounter Details Date Type Department Care Team (Late st Contact Info) Description 12/19/2018 7:45 AM STRUCTURAL ENGINEERING TECHNICIAN Hospital Encounter [facility] [place], [place] [id number] Asa Mcnamara MD Three [facility]. [facility] [address] [place], [place] [address] Discharge Disposition: Home or Self Care (Routine Discharge) Social History Tobacco Use Types Packs/Day Years Used Date Smoking Tobacco: Every Day Cigarettes Smokeless Tobacco: Never Comments:1 pk day Alcohol Use Standard Drinks/Week Comments No 0 (1 standard drink = 0.6 oz pur e alcohol) Comments Unknown Sex and Gender Information Value Date Recorded Sex Assigned at Female 12/06/2019 3:36 PM STRUCTURAL ENGINEERING TECHNICIAN Legal Sex Female 5:20 PM CDT Gender Identity Female 12/06/2019 3:36 PM STRUCTURAL ENGINEERING TECHNICIAN Sexual Orientation Straight 12/06/2019 3: 36 PM STRUCTURAL ENGINEERING TECHNICIAN Occupation Industry Job Start Date Job [...] 75 MG tabletIndications :PVD (peripheral vascular disease) ([facility]) Take 1 tablet (75 mg [...] BASIC METABOLIC PANEL Routine 12/19/2018 7:52 AM STRUCTURAL ENGINEERING TECHNICIAN Mixed hyperlipidemia LIPID PANEL Routine 12/19/2018 7:52 AM STRUCTURAL ENGINEERING TECHNICIAN Mixed hyperlipidemia documented in this encounter Results * (ABNORMAL) BASIC METABOLIC PANEL (12/19/2018 7:52 AM STRUCTURAL ENGINEERING TECHNICIAN) GLUCOSE 140(H) 70 - 99 MG/DL 12/19/2018 8:31 AM [facility] BUN 23(H) 7 - 18 MG/DL 12/19/2018 8:31 AM [facility] CREATININE S/P/B 0.86 0.55 - 1.02 MG/DL 12/19/2018 8:31 AM [facility] SODIUM S/P/B 138 136 - 145 MMOL/L 12/19/2018 8:31 AM [facility] POTASSIUM S/P/B 3.8 3.5 - 5.1 MMOL/L 12/19/2018 8:31 AM [facility] CHLORIDE S/P/B 109(H) 100 - 108 MMOL/L 12/19/2018 8:31 AM [facility] CO2 21.7 21 - 32 MMOL/L 12/19/2018 8:31 AM [facility] CALCIUM S/P/B 8.5 8.5 - 10.1 MG/DL 12/19/2018 8:31 AM [facility] ANION GAP 11.1 8 - 20 MMOL/L 12/19/2018 8:31 AM [facility] BUN CREATININE RATIO 26.8(H) 6 - 26 12/19/2018 8:31 AM [facility] EGFR NON-AFR. AMER. 76(L) >90 ML/MIN/1.7 3 M2 12/19/2018 8:31 AM [facility] EGFR AFR. AMER. 88(L) >90 ML/MIN/1.7 3 M2 12/19/2018 8:31 AM [facility] Comment: NOTE: eGFR is not calculated for patients <18 years of age. This is an estimated GFR (CKD EPI) and should not be used for calculating drug doses. 12/19/2018 7:52 AM STRUCTURAL ENGINEERING TECHNICIAN Asa Mcnamara MD LABORATORY Final Result [facility] [address] [place] [address], * (ABNORMAL) LIPID PANEL (12/19/2018 7:52 AM STRUCTURAL ENGINEERING TECHNICIAN) CHOLESTEROL 173 <200 MG/DL 12/19/2018 8:31 AM [facility] TRIGLYCERIDES 155(H) <150 MG/DL 12/19/2018 8:31 AM [facility] HDL 44 >40.0 MG/DL 12/19/2018 8:31 AM [facility] LDL (CALCULATED) 98 <100 MG/DL 12/19/2018 8:31 AM [facility] NON HDL CHOLESTEROL 129 <130 MG/DL 12/19/2018 8:31 AM [facility] CHOL/HDL RATIO 3.9 0.0 - 4.5 12/19/2018 8:31 AM [facility] VLDL CALCULATION 31 5 - 55 MG/DL 12/19/2018 8:31 AM [facility] LIPID INTERPRETATION 12/19/2018 8:31 AM [facility] Comment: NIH CONCENSUS REPORT [...] ?LDL ? >=160 ?>=130 12/19/2018 7:52 AM STRUCTURAL ENGINEERING TECHNICIAN Asa Mcnamara MD LABORATORY Final Result Performing Organization Address [facility] Co de Phone Number [facility] [address] [place] [address], documented in this encounter Visit Diagnoses Diagnosis Mixed hyperlipidemia documented in this encounter Care Teams Banquet Houseperson Relationship Specialty Start Date End Date Deisi Andrews MD [address] [place] [address] PCP - General FAMILY PRACTICE 06/15/17 10/14/19 Asa Mcnamara MD [facility]. [facility] [address] [place] [address] Stephen Obiee Architect CARDIOVASCULAR DISEASE 05/15/16 documented as of this encounter
--- OUTSIDE RECORDS SUMMARY | 2024-11-12 05:28 | XMS_ITS | Encounter Summary ---
Author Organization [facility] Address [facility] [place] [address] [place] [address] Care Team Providers Care Measurer Machine Name Role Phone Asa Mcnamara MD Unavailable [phone] Deisi Andrews MD Primary Care Provider [phone] Encounter Details Date Type Department Care Team (Late st Contact Info) Description 02/16/2019 Scan [facility] at [address] [address] Scanned, Documents Social History Tobacco Use Types Packs/Day Years Used Date Smoking Tobacco: Every Day Cigarettes Smokeless Tobacco: Never Comments:1 pk day Alcohol Use Standard Drinks/Week Comments No 0 (1 standard drink = 0.6 oz pur e alcohol) Comments Unknown Sex and Gender Information Value Date Recorded Sex Assigned at Female 12/06/2019 3:36 PM HAM PASSER Legal Sex Female 5:20 PM CDT Gender Identity Female 12/06/2019 3:36 PM HAM PASSER Sexual Orientation Straight 12/06/2019 3: 36 PM HAM PASSER Occupation Industry Job Start Date Job End Date Not on file Not on file Not on file Not on file documented as of this encounter Plan of Treatment Not on file documented as of this encounter Visit Diagnoses Not on filedocumented in this encounter Care Teams Measurer Machine Relationship Specialty Start Date End Date Deisi Andrews MD [address] [place] [address] [place] [address] PCP - General FAMILY PRACTICE 06/15/17 10/14/19 Asa Mcnamara MD Three [facility]. [facility] [address] [place] [address] Stephen Aerial Gunner CARDIOVASCULAR DISEASE 05/15/16 documented as of this encounter
--- OUTSIDE RECORDS SUMMARY | 2024-11-12 05:28 | XMS_ITS | Encounter Summary ---
Author Organization [facility] Address [address] [facility] [place] [address] [place] [address] Care Team Providers Care Card Assembler Name Role Phone Asa Mcnamara MD Unavailable [phone] Deisi Andrews MD Primary Care Provider [phone] Reason for Referral * Imaging (Routine) - Closed Specialty Diagnoses / Procedures Referred By Nacho brooks Referred To Contact RADIOLOGY Diagnoses PVD (peripheral vascular disease) with claudication (CMS/HCC) Procedures USV ART DUPLEX+KENZIE LOW DILEEP Asa Mcnamara MD [facility]. [facility] [address] [place] [address] Phone: tel: fax: [address] [place] [address] Phone: tel: fax: Referral ID Status Reason Start Date Expiration Date Visits Re quested Visits Authorized [id number] Closed 07/18/2019 08/23/2019 1 1 Encounter Details Date Type Department Care Team (Late st Contact Info) Description 07/18/2019 Orders Only [facility], [facility] [address] [place] [address] Asa Mcnamara MD Three [facility]. [facility] [address] [place] [address] Social History Tobacco Use Types Packs/Day Years Used Date Smoking Tobacco: Every Day Cigarettes Smokeless Tobacco: Never Comments:1 pk day Alcohol Use Standard Drinks/Week Comments No 0 (1 standard drink = 0.6 oz pur e alcohol) Comments Unknown Sex and Gender Information Value Date Recorded Sex Assigned at Female 12/06/2019 3:36 PM AIRCRAFT AIR CONDITIONING MECHANIC Legal Sex Female 5:20 PM CDT Gender Identity Female 12/06/2019 3:36 PM AIRCRAFT AIR CONDITIONING MECHANIC Sexual Orientation Straight 12/06/2019 3: 36 PM AIRCRAFT AIR CONDITIONING MECHANIC Occupation Industry Job Start Date Job [...] Diagnosis PVD (peripheral vascular disease) with claudication ([facility])- Primary Peripheral vascular disease, unspecified Other specified symptoms and signs involving the circulatory and respiratory systems Stenosis of carotid artery, unspecified laterality documented in this encounter Care Teams Card Assembler Relationship Specialty Start Date End Date Deisi Andrews MD [address] [place] [address] [place] [address] PCP - General FAMILY PRACTICE 06/15/17 10/14/19 Asa Mcnamara MD Three [facility]. [facility] [address] [place], [place] [address] Hope Nozzle Cement Sprayer Helper CARDIOVASCULAR DISEASE 05/15/16 documented as of this encounter
--- OUTSIDE RECORDS SUMMARY | 2024-11-12 05:28 | XMS_ITS | Encounter Summary ---
Author Organization [facility] Address Critical access hospital6 [place] [address] [place] [address] Care Team Providers Care American History Teacher Name Role Phone Asa Mcnamara MD Unavailable [phone] Deisi Andrews MD Primary Care Provider [phone] Reason for Visit * Reason Onset Date Comments Abstract Labs 11/21/2018 Encounter Details Date Type Department Care Team (Late st Contact Info) Description 11/21/2018 Telephone [facility] at [facility] [address] [place] [address] Hari Rehman, [facility] [address] [place] [address] Abstract Labs Social History Tobacco Use Types Packs/Day Years Used Date Smoking Tobacco: Every Day Cigarettes Smokeless Tobacco: Never Comments:1 pk day Alcohol Use Standard Drinks/Week Comments No 0 (1 standard drink = 0.6 oz pur e alcohol) Comments Unknown Sex and Gender Information Value Date Recorded Sex Assigned at Female 12/06/2019 3:36 PM HAT MENDER Legal Sex Female 5:20 PM CDT Gender Identity Female 12/06/2019 3:36 PM HAT MENDER Sexual Orientation Straight 12/06/2019 3: 36 PM HAT MENDER Occupation Industry Job Start Date Job End Date Not on file Not on file Not on file Not on file documented as of this encounter Progress Notes * Hari Rehman NP - 11/21/2018 2:16 PM CST Called patient with reminder to have labs repeated to recheck cholesterol. She verbalized understanding MENDER documented in this encounter Plan of Treatment Not on file documented as of this encounter Visit Diagnoses Not on filedocumented in this encounter Care Teams American History Teacher Relationship Specialty Start Date End Date Deisi Andrews MD [address] [place] [address] [place] [address] PCP - General FAMILY PRACTICE 06/15/17 10/14/19 Asa Mcnamara MD [facility]. [facility] [address] [place] [address] [place] Coconut Candy Maker CARDIOVASCULAR DISEASE 05/15/16 documented as of this encounter
--- OUTSIDE RECORDS SUMMARY | 2024-11-12 05:28 | XMS_ITS | Encounter Summary ---
Author Organization [facility] Address [facility] [place] [address] [place] [address] Care Team Providers Care Operating Room Surgical Technician Name Role Phone Asa Mcnamara MD Unavailable [phone] Deisi Andrews MD Primary Care Provider [phone] Reason for Visit * Reason Onset Date Comments Results 12/30/2018 Encounter Details Date Type Department Care Team (Late st Contact Info) Description 12/30/[address] [facility] [place] [address] Hari Rehman, TAPER AND FLOATER Three [address] [address] Results Social History Tobacco Use Types Packs/Day Years Used Date Smoking Tobacco: Every Day Cigarettes Smokeless Tobacco: Never Comments:1 pk day Alcohol Use Standard Drinks/Week Comments No 0 (1 standard drink = 0.6 oz pur e alcohol) Comments Unknown Sex and Gender Information Value Date Recorded Sex Assigned at Female 12/06/2019 3:36 PM MUSIC MANAGER Legal Sex Female 5:20 PM CDT Gender Identity Female 12/06/2019 3:36 PM MUSIC MANAGER Sexual Orientation Straight 12/06/2019 3: 36 PM MUSIC MANAGER Occupation Industry Job Start Date Job [...] need for changes in regimen right now. C MANAGER documented in this encounter Plan of Treatment Not on file documented as of this encounter Visit Diagnoses Not on filedocumented in this encounter Care Teams Operating Room Surgical Technician Relationship Specialty Start Date End Date Deisi Andrews MD [address] [place] [address] [place] [address] PCP - General FAMILY PRACTICE 06/15/17 10/14/19 Asa Mcnamara MD [facility]. [facility] [address] [place] [address] [place] Cad Librarian CARDIOVASCULAR DISEASE 05/15/16 documented as of this encounter
--- OUTSIDE RECORDS SUMMARY | 2024-11-12 05:28 | XMS_ITS | Encounter Summary ---
Author Organization [facility] Address [facility] [place], [place] [address] [place] [address] Care Team Providers Care Technical Applications Specialist Name Role Phone Asa Mcnamara MD Unavailable [phone] Neva Holden MD Primary Care Provider [phone] Reason for Visit * Reason Comments Peripheral Vascular Disease 3 month foll ow-up Encounter Details Date Type Department Care Team (Late st Contact Info) Description 11/01/2019 10:30 AM PARKING ASSISTANT Office Visit [facility] at [facility], [facility] [address] [place], [place] [id number] Asa Mcnamara MD [facility]. [facility] [address] [place], [place] [id number] Peripheral Vascular Disease (3 month follow-up ) Social History Tobacco Use Types Packs/Day Years Used Date Smoking Tobacco: Every Day Cigarettes Smokeless Tobacco: Never Comments:1 pk day Alcohol Use Standard Drinks/Week Comments No 0 (1 standard drink = 0.6 oz pur e alcohol) Comments Unknown Sex and Gender Information Value Date Recorded Sex Assigned at Female 12/06/2019 3:36 PM PARKING ASSISTANT Legal Sex Female 5:20 PM CDT Gender Identity Female 12/06/2019 3:36 PM PARKING ASSISTANT Sexual Orientation Straight 12/06/2019 3: 36 PM PARKING ASSISTANT Occupation Industry Job Start Date Job End Date Not on file Not on file Not on file Not on file documented as of this encounter Last Filed Vital Signs Vital Sign Reading Time Taken Comments Blood Pressure 108/70 11/01/2019 10:58 AM PARKING ASSISTANT Pulse 81 11/01/2019 10:58 AM PARKING ASSISTANT Temperature - - Respiratory Rate - - Oxygen Saturation 97% 11/01/2019 10:58 AM PARKING ASSISTANT Inhaled Oxygen Concentration - - Weight 96.2 kg (212 lb) 11/01/2019 10:58 AM PARKING ASSISTANT Height 160 cm (5' 3 ) 11/01/2019 10:58 AM PARKING ASSISTANT Body Mass Index 37.55 11/01/2019 10:58 AM PARKING ASSISTANT documented in this encounter Patient Instructions * Patient Instructions* Renan Lee - 11/01/2019 10:30 AM PARKING ASSISTANT Images from the original note were not included. Patient Education Patient Education Peripheral Artery Disease and Claudication The Basics Written by the doctors and editors at [facility] What is peripheral artery disease???--??Peripheral artery disease [...] process is complete. This topic retrieved from eMagin on: Jun 28, 2019. Topic 10119 Version 8.0 Release: 27.3.2 - C27.227 ?2019??[employer] and/or its affiliates.??All rights reserved. figure 1: Peripheral artery disease Graphic 74586 Version 6.0 Consumer Information Use and Disclaimer [...] that is right for you.The use of [employer] content is governed by the eMagin Terms of Use. ??2019 [employer]. All rights reserved. Copyright ?2019??[employer] and/or its affiliates.??All rights reserved. ING ASSISTANT documented in this encounter Progress Notes * [...] total) by mouth daily. Prior Auth APPROVED [id number] 01-28-2020., Disp: , Rfl: ??? fexofenadine (SAMANTHA [...] Haloperidol Seizure ??? Penicillins Redness ??? Resperal-Dm [Dgt-Kz-Twc-Propyl Ehudql-Iwc-Cncxkucuj] Seizure ??? Triazolam Seizure Past Medical History: [...] file Gets together: Not on file Attends yazidism service: Not on file Active member of [...] 3. Hyperlipidemia, mixed 4. Precordial chest pain ING ASSISTANT documented in this encounter Plan of Treatment Not on file documented as of this encounter Visit Diagnoses Diagnosis PVD (peripheral vascular disease) with claudication (CMS/HCC)- Primary Peripheral vascular disease, unspecified Essential hypertension Unspecified essential hypertension Hyperlipidemia, mixed Mixed hyperlipidemia Precordial chest pain Precordial pain documented in this encounter Care Teams Technical Applications Specialist Relationship Specialty Start Date End Date Neva Holden MD [address] [address] PCP - General FAMILY PRACTICE 10/15/19 12/05/19 Asa Mcnamara MD [facility] [address] [place] [address] [place] Plug Grower CARDIOVASCULAR DISEASE 05/15/16 documented as of this encounter
--- OUTSIDE RECORDS SUMMARY | 2024-11-12 05:28 | XMS_ITS | Encounter Summary ---
Author Organization [facility] Address [address] [place] [address] [place] [address] Care Team Providers Care Kettle Chipper Name Role Phone Asa Mcnamara MD Unavailable [phone] Deisi Adnrews MD Primary Care Provider [phone] Reason for Visit * Reason Onset Date Comments Prior Authorization 11/30/2018 [place] Rupali or Auth for Rosuvastatin 10mg has been APPROVED from 11-29-18 through 11-29-2019. Encounter Details Date Type Department Care Team (Late st Contact Info) Description 11/30/2018 Telephone [employer] [facility] at [facility] [address] [place] [address] Asa Mcnamara MD [facility]. [facility] [address] [place], [place] [id number] Prior Authorization ([place] Prior Auth for Rosuvastatin 10mg has been [...] Sex Assigned at Female 12/06/2019 3:36 PM CONDITIONER TUMBLER Legal Sex Female 5:20 PM CDT Gender Identity Female 12/06/2019 3:36 PM CONDITIONER TUMBLER Sexual Orientation Straight 12/06/2019 3: 36 PM CONDITIONER TUMBLER Occupation Industry Job Start Date Job End Date Not on file Not on file Not on file Not on file documented as of this encounter Progress Notes * JOSE Estrada - 11/30/2018 8:20 AM CST [place] Prior Auth for Rosuvastatin 10mg has been APPROVED from 11-29-18 through 11-29-2019. ITIONER TUMBLER documented in this encounter Plan of Treatment Not on file documented as of this encounter Visit Diagnoses Not on filedocumented in this encounter Care Teams Kettle Chipper Relationship Specialty Start Date End Date Deisi Andrews MD [address] [place] [address] [place] [address] PCP - General FAMILY PRACTICE 06/15/17 10/14/19 Asa Mcnamara MD [facility]. [facility] [address] [place] [address] Stephen Plant Technician CARDIOVASCULAR DISEASE 05/15/16 documented as of this encounter
--- OUTSIDE RECORDS SUMMARY | 2024-11-12 05:28 | XMS_ITS | Encounter Summary ---
Author Organization [facility] Address [facility] [place], [place] [address] [place] [address] Care Team Providers Care Multimedia Services Manager Name Role Phone Asa Mcnamara MD Unavailable [phone] Deisi Andrews MD Primary Care Provider [phone] Encounter Details Date Type Department Care Team [...] Sex Assigned at Female 12/06/2019 3:36 PM HOP SEPARATOR Legal Sex Female 5:20 PM CDT Gender Identity Female 12/06/2019 3:36 PM HOP SEPARATOR Sexual Orientation Straight 12/06/2019 3: 36 PM HOP SEPARATOR Occupation Industry Job Start Date Job End Date Not on file Not on file Not on file Not on file documented as of this encounter Plan of Treatment Not on file documented as of this encounter Visit Diagnoses Not on filedocumented in this encounter Care Teams Multimedia Services Manager Relationship Specialty Start Date End Date Deisi Andrews MD [address] [place] [address] [place] [address] PCP - General FAMILY PRACTICE 06/15/17 10/14/19 Asa Mcnamara MD [facility]. [facility] [address] [place] [address] [place] Non Destructive Testing Scientist CARDIOVASCULAR DISEASE 05/15/16 documented as of this encounter
--- OUTSIDE RECORDS SUMMARY | 2024-11-12 05:28 | XMS_ITS | Encounter Summary ---
Author Organization [facility] Address [address] [facility] [place] [address] [place] [address] Care Team Providers Care Telephone Order Supervisor Name Role Phone Asa Mcnamara MD Unavailable [phone] Deisi Andrews MD Primary Care Provider [phone] Reason for Referral * Imaging (Routine) - Closed Specialty Diagnoses / Procedures Referred By Contac t Referred To Contact CARDIOLOGY DIAGNOSTICS Diagnoses Stenosis of right carotid artery Procedures USV CAROTID DUPLEX DILEEP Asa Mcnamara MD [address] [address] Phone: tel: fax: Referral ID Status Reason Start Date Expiration Date Visits Re quested Visits Authorized [id number] Closed 01/25/2019 02/25/2020 1 1 * Imaging (Routine) - Closed Specialty Diagnoses / Procedures Referred By Contac t Referred To Contact CARDIOLOGY DIAGNOSTICS Diagnoses PVD (peripheral vascular disease) with claudication (CMS/HCC) Other specified symptoms and signs involving the circulatory and respiratory systems Procedures USV AORTA ILIAC IVC DUPLEX COMP Asa Mcnamara MD [address] [address] Phone: tel: fax: Referral ID Status Reason Start Date Expiration Date Visits Re quested Visits Authorized [id number] Closed 01/25/2019 02/26/2020 1 1 Reason for Visit * Reason Comments Peripheral Vascular Disease 6 mo fu Encounter Details Date Type Department Care Team (Late st Contact Info) Description 01/25/2019 10:45 AM CDT Office Visit [facility], [facility] at [place] [facility] [place] [address] [place] [address] Asa Mcnamara MD Three [facility]. [place] [address] [place], [place] [address] Peripheral Vascular Disease (6 mo fu ) Social History Tobacco Use Types Packs/Day Years Used Date Smoking Tobacco: Every Day Cigarettes Smokeless Tobacco: Never Comments:1 pk day Alcohol Use Standard Drinks/Week Comments No 0 (1 standard drink = 0.6 oz pur e alcohol) Comments Unknown Sex and Gender Information Value Date Recorded Sex Assigned at Female 12/06/2019 3:36 PM DATA ENTRY OPERATOR Legal Sex Female 5:20 PM CDT Gender Identity Female 12/06/2019 3:36 PM DATA ENTRY OPERATOR Sexual Orientation Straight 12/06/2019 3: 36 PM DATA ENTRY OPERATOR Occupation Industry Job Start Date Job [...] Written by the doctors and editors at [facility] What is peripheral artery disease???--??Peripheral [...] process is complete. This topic retrieved from LionWorks on: Aug 26, 2018. Topic 06283 Version 7.0 Release: 26.4.7 - C26.268 ?2018??[employer] and/or its affiliates.??All rights reserved. figure 1: Peripheral artery disease Graphic 46732 Version 6.0 Consumer Information Use and Disclaimer [...] that is right for you.The use of [employer] content is governed by the [employer] Terms of Use. ??2018 [employer]. All rights reserved. Copyright ?2018??[employer]. and/or its affiliates.??All rights reserved. documented in [...] Haloperidol Seizure ??? Penicillins Redness ??? Resperal-Dm [Sik-Lu-Gfq-Propyl Sdpnwr-Ibq-Tcdwsdigb] Seizure ??? Triazolam Seizure Past Medical History: Diagnosis Date ??? Arthritis ??? Asthma ??? Chest pain, unspecified ??? Diabetes (CMS/HCC) ??? Emphysema/COPD (CMS/HCC) ??? Essential (primary) hypertension ??? GERD (gastroesophageal reflux disease) ??? Hypercholesterolemia ??? Migraines ??? PVD (peripheral vascular disease) (CMS/[facility]) ??? Stroke ([facility]/HCC) h/o Past Surgical History: Procedure Laterality Date [...] hyperlipidemia documented in this encounter Care Teams Telephone Order Supervisor Relationship Specialty Start Date End Date Deisi Andrews MD [address] [place] [address] [place] [address] PCP - General FAMILY PRACTICE 06/15/17 10/14/19 Asa Mcnamara MD [facility] [address] [place] [address] [place] Media Manager CARDIOVASCULAR DISEASE 05/15/16 documented as of this encounter
--- OUTSIDE RECORDS SUMMARY | 2024-11-12 05:28 | XMS_ITS | Encounter Summary ---
Author Organization [facility] Address [facility]6 [facility] [place], [place] [address] [place] [address] Care Team Providers Care Restaurant Crew Person Name Role Phone Asa Mcnamara MD Unavailable [phone] Deisi Andrews MD Primary Care Provider [phone] Reason for Visit * Reason Onset Date Comments Medication 08/24/2018 Plavix and Atorv astatin Encounter Details Date Type Department Care Team (Late st Contact Info) Description 08/24/2018 Telephone [facility] at [facility], [facility] [address] [place] [address] Asa Mcnamara MD [facility]. [facility] [address] [place] [address] Medication (Plavix and Atorvastatin) Social History Tobacco Use Types Packs/Day Years Used Date Smoking Tobacco: Every Day Cigarettes Smokeless Tobacco: Never Comments:1 pk day Alcohol Use Standard Drinks/Week Comments No 0 (1 standard drink = 0.6 oz pur e alcohol) Comments Unknown Sex and Gender Information Value Date Recorded Sex Assigned at Female 12/06/2019 3:36 PM ORNAMENTAL RAIL INSTALLER Legal Sex Female 5:20 PM CDT Gender Identity Female 12/06/2019 3:36 PM ORNAMENTAL RAIL INSTALLER Sexual Orientation Straight 12/06/2019 3: 36 PM ORNAMENTAL RAIL INSTALLER Occupation Industry Job Start Date Job End [...] 08/24/2018 9:56 AM CDT WM Hari in [place] called to inform Dr. Mcnamara that when she came in to pickup driver her scripts, she declined the [...] Visit Diagnoses Diagnosis PVD (peripheral vascular disease) (CMS/[facility]) Peripheral vascular disease, unspecified documented in this encounter Care Teams Restaurant Crew Person Relationship Specialty Start Date End Date Deisi Andrews MD [address] [place] [address] [place] [address] PCP - General FAMILY PRACTICE 06/15/17 10/14/19 Asa Mcnamara MD [facility]. [facility] [address] [place] [address] [place] Program Director Group Work CARDIOVASCULAR DISEASE 05/15/16 documented as of this encounter
--- OUTSIDE RECORDS SUMMARY | 2024-11-12 05:28 | XMS_ITS | Encounter Summary ---
Author Organization [facility] Address [address] [facility] [place] [address] [place] [address] Care Team Providers Care Dog Obedience Instructor Name Role Phone Asa Mcnamara MD Unavailable [phone] Deisi Andrews MD Primary Care Provider [phone] Reason for Visit * Reason Onset Date Comments Insurance Coverage 07/11/2019 Encounter Details Date Type Department Care Team (Late st Contact Info) Description 07/11/2019 Telephone [facility] at [facility], [facility] [address] [place] [address] Asa Mcnamara MD [facility]. [email or web address] [address] [place] [address] Insurance Coverage Social History Tobacco Use Types Packs/Day Years Used Date Smoking Tobacco: Every Day Cigarettes Smokeless Tobacco: Never Comments:1 pk day Alcohol Use Standard Drinks/Week Comments No 0 (1 standard drink = 0.6 oz pur e alcohol) Comments Unknown Sex and Gender Information Value Date Recorded Sex Assigned at Female 12/06/2019 3:36 PM FOUR SLIDE MACHINE SETTER Legal Sex Female 5:20 PM CDT Gender Identity Female 12/06/2019 3:36 PM FOUR SLIDE MACHINE SETTER Sexual Orientation Straight 12/06/2019 3: 36 PM FOUR SLIDE MACHINE SETTER Occupation Industry Job Start Date Job End Date Not on file Not on file Not on file Not on file documented as of this encounter Progress Notes * Nery Cadet - 07/12/2019 9:27 AM CDT Patient is scheduled at [facility] on 07-24-19. * BRIANA Desai - 07/11/2019 4:22 PM CDT Please disregard Katt, that was for Nery. * BRIANA Desai - 07/11/2019 4:21 PM CDT If she is able to get tests done before the 14 of July with her insurance it should be covered at [facility]. If not, it is ok to get tests at [facility] and ok to do without exercise. * Nery Cadet - 07/11/2019 12:40 PM CDT Katt I called [facility] to verify if they do these tests and they do everything except the exercise portion of the KENZIE's. Thoughts on this? Would it be okay to do it without exercise? * Sandy Valentin - 07/11/2019 11:25 AM CDT Ms Zaidi is scheduled 07/18/19 at [facility] for her KENZIE, aortoiliac duplex and carotid doppler. She has [facility] so [facility] will be out of network. She lives in [place] so I am not sure if [facility] iscapable of doing these tests or not? documented in this encounter Plan of Treatment Not on file documented as of this encounter Visit Diagnoses Not on filedocumented in this encounter Care Teams Dog Obedience Instructor Relationship Specialty Start Date End Date Deisi Andrews MD [address] [place] [address] [place] [address] PCP - General FAMILY PRACTICE 06/15/17 10/14/19 Asa Mcnamara MD [facility]. [facility] [[email or web address] [address] [place] [address] [place] Wrapping Checker CARDIOVASCULAR DISEASE 05/15/16 documented as of this encounter
--- OUTSIDE RECORDS SUMMARY | 2024-11-12 05:28 | XMS_ITS | Encounter Summary ---
Author Organization [facility] Address [address] [facility] [place] [address] [place] [address] Care Team Providers Care Insurance Licensing Supervisor Name Role Phone Asa Mcnamara MD Unavailable [phone] Deisi Andrews MD Primary Care Provider [phone] Reason for Visit * Reason Onset Date Comments Prior Authorization 12/28/2018 [place] Rupali or Auth for Rosuvastatin 20mg has been APPROVED from 12-28-18 through 12-28-2019. Encounter Details Date Type Department Care Team (Late st Contact Info) Description 12/28/2018 Telephone [facility] at [facility] [address] [place] [address] Asa Mcnamara MD [facility]. [facility] [address] [place], [place] [id number] Prior Authorization ([place] Prior Auth for Rosuvastatin 20mg has been [...] Sex Assigned at Female 12/06/2019 3:36 PM BARREL LINE OPERATOR Legal Sex Female 5:20 PM CDT Gender Identity Female 12/06/2019 3:36 PM BARREL LINE OPERATOR Sexual Orientation Straight 12/06/2019 3: 36 PM BARREL LINE OPERATOR Occupation Industry Job Start Date Job End Date Not on file Not on file Not on file Not on file documented as of this encounter Progress Notes * JOSE Estrada - 12/28/2018 11:54 AM CST [place] Prior Auth for Rosuvastatin 20mg has been APPROVED from 12-28-18 through 12-28-2019. EL LINE OPERATOR documented in this encounter Plan of Treatment Not on file documented as of this encounter Visit Diagnoses Not on filedocumented in this encounter Care Teams Insurance Licensing Supervisor Relationship Specialty Start Date End Date Deisi Andrews MD [address] [place] [address] [place] [address] PCP - General FAMILY PRACTICE 06/15/17 10/14/19 Asa Mcnamara MD [facility]. [facility] [address] [place] [address] Stephen Business Information Consultant CARDIOVASCULAR DISEASE 05/15/16 documented as of this encounter
--- OUTSIDE RECORDS SUMMARY | 2024-11-12 05:28 | XMS_ITS | Encounter Summary ---
Author Organization [facility] Address [address] [facility] [place] [address] [place] [address] Care Team Providers Care Rn Emergency Room Name Role Phone Asa Mcnamara MD Unavailable [phone] Deisi Andrews MD Primary Care Provider [phone] Reason for Visit * Reason Onset Date Comments Prior Authorization 11/23/2018 [place] Rupali or Auth for Rosuvastatin 10mg has been APPROVED for 1 month. Encounter Details Date Type Department Care Team (Late st Contact Info) Description 11/23/2018 Telephone [facility] at [facility] [address] [place] [address] Asa Mcnamara MD [facility]. [facility] [address] [place] [address] Prior Authorization ([place] Prior Auth for Rosuvastatin 10mg has been [...] at Female 12/06/2019 3:36 PM HUMAN RESOURCES SAFETY MANAGER Legal Sex Female 5:20 PM CDT Gender Identity Female 12/06/2019 3:36 PM HUMAN RESOURCES SAFETY MANAGER Sexual Orientation Straight 12/06/2019 3: 36 PM HUMAN RESOURCES SAFETY MANAGER Occupation Industry Job Start Date Job End Date Not on file Not on file Not on file Not on file documented as of this encounter Progress Notes * JOSE Estrada - 11/23/2018 1:09 PM CST She stated she has the order that was given to her in July. N RESOURCES SAFETY MANAGER * Hari Rehman NP - 11/23/2018 1:01 PM CST ashlee please order lipid panel to be done tomorrow. Patient either needs to picking machine operator helper slip or we fax to [facility]. N RESOURCES SAFETY MANAGER * JOSE Estrada - 11/23/2018 11:53 AM [...] and she is going to go to [facility] tomorrow and get it drawn. She states she has been taking her medication and I even confirmed with the pharmacy that she has been picking it up. Lm N RESOURCES SAFETY MANAGER documented in this encounter Plan of Treatment Not on file documented as of this encounter Visit Diagnoses Not on filedocumented in this encounter Care Teams Rn Emergency Room Relationship Specialty Start Date End Date Deisi Andrews MD [address] [place] [address] [place] [address] PCP - General FAMILY PRACTICE 06/15/17 10/14/19 Asa Mcnamara MD [facility]. [facility] [address] [place] [address] [place] Crusher Supervisor CARDIOVASCULAR DISEASE 05/15/16 documented as of this encounter
--- OUTSIDE RECORDS SUMMARY | 2024-11-12 05:28 | XMS_ITS | Encounter Summary ---
Author Organization [facility] Address [facility] [place] [address] [place] [address] Care Team Providers Care Associate Professor Of Philosophy Name Role Phone Asa Mcnamara MD Unavailable [phone] Deisi Andrews MD Primary Care Provider [phone] Reason for Visit * Reason Comments Peripheral Vascular Disease 6 mo fu Encounter Details Date Type Department Care Team (Late st Contact Info) Description 07/26/2019 11:00 AM CDT Office Visit [facility] at [facility], [facility] [address] [place], [place] [id number] Asa Mcnamara MD [facility]. [facility] [address] [place], [place] [address] Peripheral Vascular Disease (6 mo fu ) Social History Tobacco Use Types Packs/Day Years Used Date Smoking Tobacco: Every Day Cigarettes Smokeless Tobacco: Never Comments:1 pk day Alcohol Use Standard Drinks/Week Comments No 0 (1 standard drink = 0.6 oz pur e alcohol) Comments Unknown Sex and Gender Information Value Date Recorded Sex Assigned at Female 12/06/2019 3:36 PM BEAD MAKER Legal Sex Female 5:20 PM CDT Gender Identity Female 12/06/2019 3:36 PM BEAD MAKER Sexual Orientation Straight 12/06/2019 3: 36 PM BEAD MAKER Occupation Industry Job Start Date Job [...] encounter Patient Instructions * Patient Instructions* Renan Monsalve Rosa - 07/26/2019 11:00 AM CDT Images from the original note were not included. Patient Education Patient Education Peripheral Artery Disease and Claudication The Basics Written by the doctors [facility] What is peripheral artery disease???--??Peripheral artery [...] process is complete. This topic retrieved from [employer] on: April 05, 2019. Topic 17201 Version 8.0 Release: 27.2.3 - C27.145 ?2019??[employer] and/or its affiliates.??All rights reserved. figure 1: Peripheral artery disease Graphic 47958 Version 6.0 Consumer Information Use and Disclaimer [...] that is right for you.The use of [employer] content is governed by the [employer] Terms of Use. ??2019 [employer]. All rights reserved. Copyright ?2019??[employer] and/or its affiliates.??All rights reserved. documented in [...] total) by mouth daily. Prior Auth APPROVED [id number] 01-28-2020., Disp: , Rfl: ??? fexofenadine (SAMANTHA [...] Haloperidol Seizure ??? Penicillins Redness ??? Resperal-Dm [Uhs-Lq-Rae-Propyl Bskguz-Ysn-Jrjvsshld] Seizure ??? Triazolam Seizure Past Medical History: [...] file Gets together: Not on file Attends amish service: Not on file Active member of [...] hyperlipidemia documented in this encounter Care Teams Associate Professor Of Philosophy Relationship Specialty Start Date End Date Deisi Andrews MD [address] [place] [address] [place] [address] PCP - General FAMILY PRACTICE 06/15/17 10/14/19 Asa Mcnamara MD [address] [address] [place] [address] [place] Digital Photographic Printer CARDIOVASCULAR DISEASE 05/15/16 documented as of this encounter
--- OUTSIDE RECORDS SUMMARY | 2024-11-12 05:28 | XMS_ITS | Encounter Summary ---
Author Organization [facility] Address [facility]. [place], [place] [address] [place] [address] Care Team Providers Care Executive Pastry Chef Name Role Phone Asa Mcnamara MD Unavailable [phone] Deisi Andrews MD Primary Care Provider [phone] Encounter Details Date Type Department Care Team (Latest Contact Info) Description 09/20/2018 Scan [facility] , Heber Trinidad MD Social History Tobacco Use Types Packs/Day Years Used Date Smoking Tobacco: Every Day Cigarettes Smokeless Tobacco: Never Comments:1 pk day Alcohol Use Standard Drinks/Week Comments No 0 (1 standard drink = 0.6 oz pur e alcohol) Comments Unknown Sex and Gender Information Value Date Recorded Sex Assigned at Female 12/06/2019 3:36 PM TOOLS AND PARTS ATTENDANT Legal Sex Female 5:20 PM CDT Gender Identity Female 12/06/2019 3:36 PM TOOLS AND PARTS ATTENDANT Sexual Orientation Straight 12/06/2019 3: 36 PM TOOLS AND PARTS ATTENDANT Occupation Industry Job Start Date Job End Date Not on file Not on file Not on file Not on file documented as of this encounter Plan of Treatment Not on file documented as of this encounter Visit Diagnoses Not on filedocumented in this encounter Care Teams Executive Pastry Chef Relationship Specialty Start Date End Date Deisi Andrews MD [address] [place] [address] [place] [address] PCP - General FAMILY PRACTICE 06/15/17 10/14/19 Asa Mcnamara MD [facility]. [facility] [address] [place] [address] [place] Powersaw Supervisor CARDIOVASCULAR DISEASE 05/15/16 documented as of this encounter
--- OUTSIDE RECORDS SUMMARY | 2024-11-12 05:28 | XMS_ITS | Encounter Summary ---
Author Organization [facility] Address [facility] [place] [address] [place] [address] Care Team Providers Care Shale Planer Operator Name Role Phone Asa Mcnamara MD Unavailable [phone] Deisi Andrews MD Primary Care Provider [phone] Reason for Visit * Reason Onset Date Comments Surgical Clearance 01/26/2019 Encounter Details Date Type Department Care Team (Late st Contact Info) Description 01/26/2019 Telephone [facility] at [facility], [facility] [address] [place] [address] Asa Mcnamara MD [facility]. [facility] [address] [place] [address] Surgical Clearance Social History Tobacco Use Types Packs/Day Years Used Date Smoking Tobacco: Every Day Cigarettes Smokeless Tobacco: Never Comments:1 pk day Alcohol Use Standard Drinks/Week Comments No 0 (1 standard drink = 0.6 oz pur e alcohol) Comments Unknown Sex and Gender Information Value Date Recorded Sex Assigned at Female 12/06/2019 3:36 PM HORTICULTURAL WORKER Legal Sex Female 5:20 PM CDT Gender Identity Female 12/06/2019 3:36 PM HORTICULTURAL WORKER Sexual Orientation Straight 12/06/2019 3: 36 PM HORTICULTURAL WORKER Occupation Industry Job Start Date Job End Date Not on file Not on file Not on file Not on file documented as of this encounter Progress Notes * Nery Cadet - 01/31/2019 9:29 AM CDT Clearance faxed to [phone] * Hari Rehman NP - 01/30/2019 1:24 [...] on filedocumented in this encounter Care Teams Shale Planer Operator Relationship Specialty Start Date End Date Deisi Andrews MD [address] [place] [address] [place] [address] PCP - General FAMILY PRACTICE 06/15/17 10/14/19 Asa Mcnamara MD [facility]. [facility] [address] [place] [address] [place] Cloth Inspector CARDIOVASCULAR DISEASE 05/15/16 documented as of this encounter
--- OUTSIDE RECORDS SUMMARY | 2024-11-12 05:28 | XMS_ITS | Encounter Summary ---
Author Organization [facility] Address [facility] [facility] [place], [place] [address] [place] [address] Care Team Providers Care Aligner Typewriter Name Role Phone Asa Mcnamara MD Unavailable [phone] Deisi Andrews MD Primary Care Provider [phone] Neva Holden MD Primary Care Provider [phone] Deisi Andrews MD Primary Care Provider [phone] Neva Holden MD Primary Care Provider [phone] Encounter Details Date Type Department Care Team (Late st Contact Info) Description 11/25/2018 [facility] at [address] [address] Rafael Thakur [place] Social History Tobacco Use Types Packs/Day Years Used Date Smoking Tobacco: Every Day Cigarettes Smokeless Tobacco: Never Comments:1 pk day Alcohol Use Standard Drinks/Week Comments No 0 (1 standard drink = 0.6 oz pur e alcohol) Comments Unknown Sex and Gender Information Value Date Recorded Sex Assigned at Female 12/06/2019 3:36 PM MINER OPERATOR Legal Sex Female 5:20 PM CDT Gender Identity Female 12/06/2019 3:36 PM MINER OPERATOR Sexual Orientation Straight 12/06/2019 3: 36 PM MINER OPERATOR Occupation Industry Job Start Date Job [...] on filedocumented in this encounter Care Teams Aligner Typewriter Relationship Specialty Start Date End Date Deisi Andrews MD [address] [place] [address] PCP - General FAMILY PRACTICE 06/15/17 10/14/19 Neva Holden MD [facility] [address] [place] [address] PCP - General FAMILY PRACTICE 10/15/19 12/05/19 Deisi Andrews MD [address] [place] [address] PCP - General FAMILY PRACTICE 12/06/19 02/13/20 Neva Holden MD [facility] [address] [place] [address] PCP - General FAMILY PRACTICE 02/14/20 Asa Mcnamara MD [facility]. [facility] [address] [place] [address] Stephen Customer Support Manager CARDIOVASCULAR DISEASE 05/15/16 documented as of this encounter
--- OUTSIDE RECORDS SUMMARY | 2024-11-12 05:28 | XMS_ITS | Encounter Summary ---
Author Organization [facility] Address [address] [place] [address] [place] [address] Care Team Providers Care Alarm Mechanism Adjuster Name Role Phone Asa Mcnamara MD Unavailable [phone] Deisi Andrews MD Primary Care Provider [phone] Reason for Visit * Reason Onset Date Comments Prior Authorization 08/25/2018 [place]IA for Rosuvastatin has been Denied again. Encounter Details Date Type Department Care Team (Late st Contact Info) Description 08/25/2018 Telephone [facility] at [facility], [facility] [address] [place] [address] Asa Mcnamara MD [facility]. [facility] [address] [place], [place] [id number] Prior Authorization ([place] for Rosuvastatin has been Denied again.) Social History Tobacco Use Types Packs/Day Years Used Date Smoking Tobacco: Every Day Cigarettes Smokeless Tobacco: Never Comments:1 pk day Alcohol Use Standard Drinks/Week Comments No 0 (1 standard drink = 0.6 oz pur e alcohol) Comments Unknown Sex and Gender Information Value Date Recorded Sex Assigned at Female 12/06/2019 3:36 PM SURGICAL SERVICES DIRECTOR Legal Sex Female 5:20 PM CDT Gender Identity Female 12/06/2019 3:36 PM SURGICAL SERVICES DIRECTOR Sexual Orientation Straight 12/06/2019 3: 36 PM SURGICAL SERVICES DIRECTOR Occupation Industry Job Start Date Job [...] she states she got a call from [facility] [employer] that it was approved. I called [facility] and they verified that the reconsideration for [...] Ezetimibe 10mg with prior authorization. Please advise, Lm * JOSE Estrada - 08/26/2018 9:50 AM [...] on filedocumented in this encounter Care Teams Alarm Mechanism Adjuster Relationship Specialty Start Date End Date Deisi Andrews MD [address] [place] [address] [place] [address] PCP - General FAMILY PRACTICE 06/15/17 10/14/19 Asa Mcnamara MD [facility]. [facility] [address] [place] [address] [place] Psych Sales Specialist CARDIOVASCULAR DISEASE 05/15/16 documented as of this encounter
--- OUTSIDE RECORDS SUMMARY | 2024-11-12 05:28 | XMS_ITS | Encounter Summary ---
Author Organization [facility] Address [address] [facility] [place] [place] [address] [place] [address] Care Team Providers Care Project Eng Name Role Phone Asa Mcnamara MD Unavailable [phone] Deisi Andrews MD Primary Care Provider [phone] Reason for Visit * Reason Onset Date Comments Prior Authorization 01/27/2019 [place] Rupali or Auth for Ezetimibe 10mg has been APPROVED from 01-27-19 through 01-28-2020. Encounter Details Date Type Department Care Team (Late st Contact Info) Description 01/27/2019 Telephone [facility] at [facility] [address] [place] [address] Asa Mcnamara MD [facility]. [facility] [address] [place], [place] [address] Prior Authorization ([place] Prior Auth for Ezetimibe 10mg has been [...] Sex Assigned at Female 12/06/2019 3:36 PM WAFER CLEANER Legal Sex Female 5:20 PM CDT Gender Identity Female 12/06/2019 3:36 PM WAFER CLEANER Sexual Orientation Straight 12/06/2019 3: 36 PM WAFER CLEANER Occupation Industry Job Start Date Job End Date Not on file Not on file Not on file Not on file documented as of this encounter Progress Notes * JOSE Estrada - 01/27/2019 3:02 PM CDT [place] Prior Auth for Ezetimibe 10mg has been APPROVED from 01-27-19 through 01-28-2020. documented in this encounter Plan of Treatment Not on file documented as of this encounter Visit Diagnoses Not on filedocumented in this encounter Care Teams Project Eng Relationship Specialty Start Date End Date Deisi Andrews MD [address] [place] [address] [place] [address] PCP - General FAMILY PRACTICE 06/15/17 10/14/19 Asa Mcnamara MD [facility] [address] [place] [address] [place] Solar Maintenance Technician CARDIOVASCULAR DISEASE 05/15/16 documented as of this encounter
--- OUTSIDE RECORDS SUMMARY | 2024-11-12 05:28 | XMS_ITS | Encounter Summary ---
Author Organization [facility] Address [facility]. [place], [place] [address] [place] [address] Care Team Providers Care Powdered Sugar Pulverizer Operator Name Role Phone Asa Mcnamara MD Unavailable [phone] Deisi Andrews MD Primary Care Provider [phone] Reason for Visit * Reason Onset Date Comments Lab Results 12/27/2018 Encounter Details Date Type Department Care Team (Late st Contact Info) Description 12/27/2018 Telephone [facility] at [place] [id number] Karen Barboza hand touch up painter Results Social History Tobacco Use Types Packs/Day Years Used Date Smoking Tobacco: Every Day Cigarettes Smokeless Tobacco: Never Comments:1 pk day Alcohol Use Standard Drinks/Week Comments No 0 (1 standard drink = 0.6 oz pur e alcohol) Comments Unknown Sex and Gender Information Value Date Recorded Sex Assigned at Female 12/06/2019 3:36 PM REPAIR ARMATURE WINDER HELPER Legal Sex Female 5:20 PM CDT Gender Identity Female 12/06/2019 3:36 PM REPAIR ARMATURE WINDER HELPER Sexual Orientation Straight 12/06/2019 3: 36 PM REPAIR ARMATURE WINDER HELPER Occupation Industry Job Start Date Job End Date Not on file Not on file Not on file Not on file documented as of this encounter Progress Notes * Karen Barboza RN - 12/27/2018 8:37 AM CST Increase rosuvastatin to 20 mg daily, LDL not at goal. BMP is stable. Pt notified of the above per Hari-INDUSTRIAL EDUCATION INSTRUCTOR, will send Rx, also went over lipid results with pt as well, pt verbalizes understanding and has no further questions. Rx sent. Rosy Barboza R.N. IR ARMATURE WINDER HELPER IR ARMATURE WINDER HELPER documented in this encounter Plan of Treatment Not on file documented as of this encounter Visit Diagnoses Not on filedocumented in this encounter Care Teams Powdered Sugar Pulverizer Operator Relationship Specialty Start Date End Date Deisi Andrews MD [address] [place] [address] [place] [address] PCP - General FAMILY PRACTICE 06/15/17 10/14/19 Asa Mcnamara MD [facility]. [facility] [address] [place] [address] [place] Flow Manager CARDIOVASCULAR DISEASE 05/15/16 documented as of this encounter
--- OUTSIDE RECORDS SUMMARY | 2024-11-12 05:28 | XMS_ITS | Encounter Summary ---
Author Organization [facility] Address [address] [facility] [place] [address] [place] [address] Care Team Providers Care Die Welder Name Role Phone Asa Mcnamara MD Unavailable [phone] Deisi Andrews MD Primary Care Provider [phone] Reason for Visit * Reason Onset Date Comments Prior Authorization 07/28/2018 [place] Rupali or Auth for Rosuvastatin has been DENIED. Encounter Details Date Type Department Care Team (Late st Contact Info) Description 07/28/2018 Telephone [facility] at [facility], [facility] [address] [place] [address] Asa Mcnamara MD [facility]. [facility] [address] [place] [address] Prior Authorization ([place] Prior Auth for Rosuvastatin has been DENIED.) Social History Tobacco Use Types Packs/Day Years Used Date Smoking Tobacco: Every Day Cigarettes Smokeless Tobacco: Never Comments:1 pk day Alcohol Use Standard Drinks/Week Comments No 0 (1 standard drink = 0.6 oz pur e alcohol) Comments Unknown Sex and Gender Information Value Date Recorded Sex Assigned at Female 12/06/2019 3:36 PM ANCHORMAN Legal Sex Female 5:20 PM CDT Gender Identity Female 12/06/2019 3:36 PM ANCHORMAN Sexual Orientation Straight 12/06/2019 3: 36 PM ANCHORMAN Occupation Industry Job Start Date Job End [...] filedocumented in this encounter Care Teams Die Welder Relationship Specialty Start Date End Date Deisi Andrews MD [address] [place] [address] [place] [address] PCP - General FAMILY PRACTICE 06/15/17 10/14/19 Asa Mcnamara MD [facility] [address] [place] [address] [place] Engraved Roller Inspector CARDIOVASCULAR DISEASE 05/15/16 documented as of this encounter
--- OUTSIDE RECORDS SUMMARY | 2024-11-12 05:28 | XMS_ITS | Encounter Summary ---
Author Organization [facility] Address [address] [facility]. [place], [place] [address] [place] [address] Care Team Providers Care Potato Sorter Name Role Phone Asa Mcnamara MD Unavailable [phone] Deisi Andrews MD Primary Care Provider [phone] Reason for Referral * Imaging (Routine) - Closed Specialty Diagnoses / Procedures Referred By Contac t Referred To Contact CARDIOLOGY Diagnoses PVD (peripheral vascular disease) with claudication (CMS/HCC) Procedures USV ART REST W KENZIE LOW EXT [facility] KENZIE LTD DILEEP Asa Mcnamara MD [address] [address] Phone: tel: fax: [facility] [address] Phone: tel: Referral ID Status Reason Start Date Expiration Date Visits Re quested Visits Authorized [id number] Closed 07/19/2018 01/16/2019 1 1 * Imaging (Routine) - Closed Specialty Diagnoses / Procedures Referred By Contac t Referred To Contact CARDIOLOGY Diagnoses Symptoms involving cardiovascular system PVD (peripheral vascular disease) with claudication (CMS/HCC) Procedures USV AORTA ILIAC IVC DUPLEX COMP Asa Mcnamara MD Three [facility]. [address] [place] [address] Phone: tel: fax: [facility] [place] [address] Phone: tel: Referral ID Status Reason Start Date Expiration Date Visits Re quested Visits Authorized [id number] Closed 07/19/2018 01/16/2019 1 1 Reason for Visit * Reason Comments Peripheral Vascular Disease 6mo fu-discu ss duplex scans Encounter Details Date Type Department Care Team (Late st Contact Info) Description 07/19/2018 10:00 AM CDT Office Visit [facility] [place] [facility], [place] [address] [place] [address] Asa Mcnamara MD [facility]. [address] [place] [address] Peripheral Vascular Disease (6mo fu-discuss duplex scans) Social History Tobacco Use Types Packs/Day Years Used Date Smoking Tobacco: Every Day Cigarettes Smokeless Tobacco: Never Comments:1 pk day Alcohol Use Standard Drinks/Week Comments No 0 (1 standard drink = 0.6 oz pur e alcohol) Comments Unknown Sex and Gender Information Value Date Recorded Sex Assigned at Female 12/06/2019 3:36 PM STORAGE FACILITY HOUSEKEEPER Legal Sex Female 5:20 PM CDT Gender Identity Female 12/06/2019 3:36 PM STORAGE FACILITY HOUSEKEEPER Sexual Orientation Straight 12/06/2019 3: 36 PM STORAGE FACILITY HOUSEKEEPER Occupation Industry Job Start Date Job End [...] Written by the doctors and editors at [facility] What is peripheral artery disease???--??Peripheral [...] process is complete. This topic retrieved from [employer] on: Nov 18, 2017. Topic 81607 Version 7.0 Release: 25.6.2-122 - C26.3 ?2018??[employer]. and/or its affiliates.??All rights reserved. figure 1: Peripheral artery disease Graphic 17071 Version 6.0 Consumer Information Use and Disclaimer [...] that is right for you.The use of [employer] content is governed by the [employer] Terms of Use. ??2018 [employer]. All rights reserved. Copyright ?2018??[employer] and/or its affiliates.??All rights reserved. documented in [...] Haloperidol Seizure ??? Penicillins Redness ??? Resperal-Dm [Vdt-Pc-Jgo-Propyl Gjdgss-Oht-Dokqxfvrb] Seizure ??? Triazolam Seizure Past Medical History: [...] W KENZIE LOW EXT (12/19/2018 9:03 AM STORAGE FACILITY HOUSEKEEPER) Anatomical Region Laterality Modality Extremity Vascular Ultraso und 12/19/2018 8:35 AM STORAGE FACILITY HOUSEKEEPER Narrative 12/19/2018 5:40 PM STORAGE FACILITY HOUSEKEEPER ?ARTERIAL DOPPLER - KENZIE ?BILATERAL LOWER EXTREMITY ? VASCULAR LAB Pat.Name: ??GELSO, ARNOLD ?Pat.ID: ?[id number] ? St.Date: ?? 12/19/2018 ?Exam Time: 8:35:00 [...] A PSV ??41.8 cm/s ? Left Dist MOLD CAPPER HELPER ?? Dist MOLD CAPPER HELPER PSV ?33.3 cm/s ? Left Dist BHUMI ?? Dist BHUMI PSV ?54.6 cm/s ? Left Prox KALANI ?? Prox KALANI PSV ? 101 cm/s ? Right Dist Pop A ?? Dist Pop A PSV ??60.5 cm/s ? Right Dist MOLD CAPPER HELPER ?? Dist MOLD CAPPER HELPER PSV ?36.6 cm/s ? Right Dist BHUMI [...] EXTREMITY VASCULAR LAB Pat.Name: ARNOLD CRUZ Pat.ID: [id number] .Date: 12/19/2018 Exam Time: 8:35:00 AM Study [...] Pop A PSV 41.8 cm/s Left Dist MOLD CAPPER HELPER Dist MOLD CAPPER HELPER PSV 33.3 cm/s Left Dist BHUMI Dist BHUMI PSV 54.6 cm/s Left Prox KALANI Prox KALANI PSV 101 cm/s Right Dist Pop A Dist Pop A PSV 60.5 cm/s Right Dist MOLD CAPPER HELPER Dist MOLD CAPPER HELPER PSV 36.6 cm/s Right Dist BHUMI Dist [...] ILIAC IVC DUPLEX COMP (12/19/2018 9:03 AM STORAGE FACILITY HOUSEKEEPER) Anatomical Region Laterality Modality NA Vascular Ultraso und 12/19/2018 8:03 AM STORAGE FACILITY HOUSEKEEPER Narrative 12/19/2018 6:24 PM STORAGE FACILITY HOUSEKEEPER ?[id number] DUPLEX IMAGING ? VASCULAR LAB Pat.Name: ??ARNOLD CRUZ ?Pat.ID: ?[id number] ? St.Date: ?? 12/19/2018 ?Refer.MD: ??Darryl, Deisi [...] Procedure Note Asa Mcnamara MD - 12/19/2018 [id number] DUPLEX IMAGING VASCULAR LAB Pat.Name: ARNOLD CRUZ Pat.ID: [id number] .Date: 12/19/2018 Refer.MD: Deisi Andrews Exam Time: [...] PM Asa Mcnamara M.D. Asa Mcnamara MD [facility] Final Result * (ABNORMAL) LIPID PANEL (12/19/2018 7:52 AM [facility]) [facility] Signature CHOLESTEROL 173 <200 MG/DL 12/19/2018 8:31 AM [facility] TRIGLYCERIDES 155(H) <150 MG/DL 12/19/2018 8:31 AM [facility] HDL 44 >40.0 MG/DL 12/19/2018 8:31 AM [facility] LDL (CALCULATED) 98 <100 MG/DL 12/19/2018 8:31 AM [facility] NON HDL CHOLESTEROL 129 <130 MG/DL 12/19/2018 8:31 AM [facility] CHOL/HDL RATIO 3.9 0.0 - 4.5 12/19/2018 8:31 AM [facility] VLDL CALCULATION 31 5 - 55 MG/DL 12/19/2018 8:31 AM [facility] LIPID INTERPRETATION 12/19/2018 8:31 AM [facility] Comment: NIH CONCENSUS REPORT RECOMMENDATIONS: [...] ?LDL ? >=160 ?>=130 12/19/2018 7:52 AM STORAGE FACILITY HOUSEKEEPER Asa Mcnamara MD LABORATORY Final Result [facility] [address] [place] [address], documented in this encounter Visit Diagnoses Diagnosis [...] unspecified documented in this encounter Care Teams Potato Sorter Relationship Specialty Start Date End Date Deisi Andrews MD [address] [place] [address] [place] [address] PCP - General FAMILY PRACTICE 06/15/17 10/14/19 Asa Mcnamara MD [facility]. [facility] [address] [place] [address] [place] Sales Operations CARDIOVASCULAR DISEASE 05/15/16 documented as of this encounter
--- OUTSIDE RECORDS SUMMARY | 2024-11-12 05:28 | XMS_ITS | Encounter Summary ---
Author Organization [facility] Address [facility] [place] [address] [place] [address] Care Team Providers Care Release Of Information Clerk Name Role Phone Asa Mcnamara MD Unavailable [phone] Deisi Andrews MD Primary Care Provider [phone] Encounter Details Date Type Department Care Team (Late st Contact Info) Description 12/19/2018 Orders Only [facility] [place] [address] Asa Mcnamara MD [address] [place] [address] Social History Tobacco Use Types Packs/Day Years Used Date Smoking Tobacco: Every Day Cigarettes Smokeless Tobacco: Never Comments:1 pk day Alcohol Use Standard Drinks/Week Comments No 0 (1 standard drink = 0.6 oz pur e alcohol) Comments Unknown Sex and Gender Information Value Date Recorded Sex Assigned at Female 12/06/2019 3:36 PM RN NEUROLOGY Legal Sex Female 5:20 PM CDT Gender Identity Female 12/06/2019 3:36 PM RN NEUROLOGY Sexual Orientation Straight 12/06/2019 3: 36 PM RN NEUROLOGY Occupation Industry Job Start Date Job End Date Not on file Not on file Not on file Not on file documented as of this encounter Plan of Treatment Not on file documented as of this encounter Results * (ABNORMAL) BASIC METABOLIC PANEL (12/19/2018 7:52 AM [facility]) [facility] Signature GLUCOSE 140(H) 70 - 99 MG/DL 12/19/2018 8:31 AM [facility] BUN 23(H) 7 - 18 MG/DL 12/19/2018 8:31 AM [facility] CREATININE S/P/B 0.86 0.55 - 1.02 MG/DL 12/19/2018 8:31 AM [facility] SODIUM S/P/B 138 136 - 145 MMOL/L 12/19/2018 8:31 AM [facility] POTASSIUM S/P/B 3.8 3.5 - 5.1 MMOL/L 12/19/2018 8:31 AM [facility] CHLORIDE S/P/B 109(H) 100 - 108 MMOL/L 12/19/2018 8:31 AM [facility] CO2 21.7 21 - 32 MMOL/L 12/19/2018 8:31 AM [facility] CALCIUM S/P/B 8.5 8.5 - 10.1 MG/DL 12/19/2018 8:31 AM [facility] ANION GAP 11.1 8 - 20 MMOL/L 12/19/2018 8:31 AM [facility] BUN CREATININE RATIO 26.8(H) 6 - 26 12/19/2018 8:31 AM [facility] EGFR NON-AFR. AMER. 76(L) >90 ML/MIN/1.7 3 M2 12/19/2018 8:31 AM [facility] EGFR AFR. AMER. 88(L) >90 ML/MIN/1.7 3 M2 12/19/2018 8:31 AM [facility] Comment: NOTE: eGFR is not calculated for patients <18 years of age. This is an estimated GFR (CKD EPI) and should not be used for calculating drug doses. 12/19/2018 7:52 AM RN NEUROLOGY Asa Mcnamara MD LABORATORY Final Result [facility] [address] [place] [address], documented in this encounter Visit Diagnoses Diagnosis Mixed hyperlipidemia- Primary documented in this encounter Care Teams Release Of Information Clerk Relationship Specialty Start Date End Date Deisi Andrews MD [address] [place] [address] [place] [address] PCP - General FAMILY PRACTICE 06/15/17 10/14/19 Asa Mcnamara MD Three [facility]. [facility] [address] [place] [address] [place] Apigee Developer CARDIOVASCULAR DISEASE 05/15/16 documented as of this encounter
--- OUTSIDE RECORDS SUMMARY | 2024-11-12 05:28 | XMS_ITS | Encounter Summary ---
Author Organization [facility] Address [facility] [place] [address] [place] [address] Care Team Providers Care Baby Sitter Name Role Phone Asa Mcnamara MD Unavailable [phone] Deisi Andrews MD Primary Care Provider [phone] Reason for Visit * Reason Onset Date Comments Other 02/01/2019 Encounter Details Date Type Department Care Team (Late st Contact Info) Description 02/01/2019 Telephone [facility] at [facility], [facility] [address] [place] [address] Asa Mcnamara MD [facility]. [facility] [address] [place] [address] Other Social History Tobacco Use Types Packs/Day Years Used Date Smoking Tobacco: Every Day Cigarettes Smokeless Tobacco: Never Comments:1 pk day Alcohol Use Standard Drinks/Week Comments No 0 (1 standard drink = 0.6 oz pur e alcohol) Comments Unknown Sex and Gender Information Value Date Recorded Sex Assigned at Female 12/06/2019 3:36 PM HOE WORKER Legal Sex Female 5:20 PM CDT Gender Identity Female 12/06/2019 3:36 PM HOE WORKER Sexual Orientation Straight 12/06/2019 3: 36 PM HOE WORKER Occupation Industry Job Start Date Job End Date Not on file Not on file Not on file Not on file documented as of this encounter Plan of Treatment Not on file documented as of this encounter Visit Diagnoses Not on filedocumented in this encounter Care Teams Baby Sitter Relationship Specialty Start Date End Date Deisi Andrews MD [address] [place] [address] [place] [address] PCP - General FAMILY PRACTICE 06/15/17 10/14/19 Asa Mcnamara MD [facility]. [facility] [address] [place] [address] [place] C[employer] Technical Lead CARDIOVASCULAR DISEASE 05/15/16 documented as of this encounter
--- OUTSIDE RECORDS SUMMARY | 2024-11-12 05:28 | XMS_ITS | Encounter Summary ---
Author Organization [facility] Address [facility]. [place], [place] [address] [place] [address] Care Team Providers Care Ornamental Ironworker Helper Name Role Phone Asa Mcnamara MD Unavailable [phone] Deisi Andrews MD Primary Care Provider [phone] Reason for Visit * Reason Onset Date Comments Information 02/13/2019 Martir Ventura D.O. / cardiac clearance request Encounter Details Date Type Department Care Team (Late st Contact Info) Description 02/13/2019 Telephone [facility] at [facility] [address] [place] [address] Asa Mcnamara MD [facility]. [facility] [address] [place] [address] Information (Martir Ventura D.O. / cardiac clearance request) Social History Tobacco Use Types Packs/Day Years Used Date Smoking Tobacco: Every Day Cigarettes Smokeless Tobacco: Never Comments:1 pk day Alcohol Use Standard Drinks/Week Comments No 0 (1 standard drink = 0.6 oz pur e alcohol) Comments Unknown Sex and Gender Information Value Date Recorded Sex Assigned at Female 12/06/2019 3:36 PM HEEL PACKER Legal Sex Female 5:20 PM CDT Gender Identity Female 12/06/2019 3:36 PM HEEL PACKER Sexual Orientation Straight 12/06/2019 3: 36 PM HEEL PACKER Occupation Industry Job Start Date Job End Date Not on file Not on file Not on file Not on file documented as of this encounter Progress Notes * Nrey Cadet - 02/14/2019 8:45 AM CDT Clearance faxed to [phone] and form put in scanning * Mirna [...] on filedocumented in this encounter Care Teams Ornamental Ironworker Helper Relationship Specialty Start Date End Date Deisi Andrews MD [address] [place] [address] PCP - General FAMILY PRACTICE 06/15/17 10/14/19 Asa Mcnamara MD [facility] [address] [place] [address] [employer] Rail Detector Car Operator CARDIOVASCULAR DISEASE 05/15/16 documented as of this encounter
--- OUTSIDE RECORDS SUMMARY | 2024-11-12 05:28 | XMS_ITS | Encounter Summary ---
Author Organization [facility] Address [facility] [facility]. [place], [place] [address] [place] [address] Care Team Providers Care Nail Puller Name Role Phone Asa Mcnamara MD Unavailable [phone] Deisi Andrews MD Primary Care Provider [phone] Encounter Details Date Type Department Care Team (Late st Contact Info) Description 12/27/2018 Orders Only [facility] at [address] [address] Karen Barboza, RN Social History Tobacco Use Types Packs/Day Years Used Date Smoking Tobacco: Every Day Cigarettes Smokeless Tobacco: Never Comments:1 pk day Alcohol Use Standard Drinks/Week Comments No 0 (1 standard drink = 0.6 oz pur e alcohol) Comments Unknown Sex and Gender Information Value Date Recorded Sex Assigned at Female 12/06/2019 3:36 PM ENERGY PROJECTS LEAD Legal Sex Female 5:20 PM CDT Gender Identity Female 12/06/2019 3:36 PM ENERGY PROJECTS LEAD Sexual Orientation Straight 12/06/2019 3: 36 PM ENERGY PROJECTS LEAD Occupation Industry Job Start Date Job End Date Not on file Not on file Not on file Not on file documented as of this encounter Plan of Treatment Not on file documented as of this encounter Visit Diagnoses Not on filedocumented in this encounter Care Teams Nail Puller Relationship Specialty Start Date End Date Deisi Andrews MD [address] [place] [address] [place] [address] PCP - General FAMILY PRACTICE 06/15/17 10/14/19 Asa Mcnamara MD [facility] [address] [place] [address] [place] Grinder Operator Surface Tool CARDIOVASCULAR DISEASE 05/15/16 documented as of this encounter
--- OUTSIDE RECORDS SUMMARY | 2024-11-12 05:28 | XMS_ITS | Encounter Summary ---
Author Organization [facility] Address [facility] [place] [address] [place] [address] Care Team Providers Care Associate Professor Of Education Name Role Phone Asa Mcnamara MD Unavailable [phone] Deisi Andrews MD Primary Care Provider [phone] Encounter Details Date Type Department Care Team (Late st Contact Info) Description 07/28/2019 Orders Only [facility] at [address] [address] Suzanne Corado, A Social History Tobacco Use Types Packs/Day Years Used Date Smoking Tobacco: Every Day Cigarettes Smokeless Tobacco: Never Comments:1 pk day Alcohol Use Standard Drinks/Week Comments No 0 (1 standard drink = 0.6 oz pur e alcohol) Comments Unknown Sex and Gender Information Value Date Recorded Sex Assigned at Female 12/06/2019 3:36 PM NEGOTIATOR SALES Legal Sex Female 5:20 PM CDT Gender Identity Female 12/06/2019 3:36 PM NEGOTIATOR SALES Sexual Orientation Straight 12/06/2019 3: 36 PM NEGOTIATOR SALES Occupation Industry Job Start Date Job End [...] infarction PVD (peripheral vascular disease) with claudication ([facility]) Peripheral vascular disease, unspecified Other specified symptoms and signs involving the circulatory and respiratory systems documented in this encounter Care Teams Associate Professor Of Education Relationship Specialty Start Date End Date Deisi Andrews MD [address] [place] [address] [place] [address] PCP - General FAMILY PRACTICE 06/15/17 10/14/19 Asa Mcnamara MD [facility]. [address] [place] [address] [place] Production Machine Computer Operator CARDIOVASCULAR DISEASE 05/15/16 documented as of this encounter
--- OUTSIDE RECORDS SUMMARY | 2024-11-12 05:28 | XMS_ITS | Encounter Summary ---
Author Organization [facility] Address [facility] [place] [address] [place] [address] Care Team Providers Care Carpenter Helper Hardwood Flooring Name Role Phone Asa Mcnamara MD Unavailable [phone] Deisi Andrews MD Primary Care Provider [phone] Reason for Visit * Reason Onset Date Comments Surgical Clearance 12/09/2018 Encounter Details Date Type Department Care Team (Late st Contact Info) Description 12/09/2018 Telephone [facility] at [facility], [facility] [address] [place] [address] Asa Mcnamara MD [facility]. [facility] [address] [place] [address] Surgical Clearance Social History Tobacco Use Types Packs/Day Years Used Date Smoking Tobacco: Every Day Cigarettes Smokeless Tobacco: Never Comments:1 pk day Alcohol Use Standard Drinks/Week Comments No 0 (1 standard drink = 0.6 oz pur e alcohol) Comments Unknown Sex and Gender Information Value Date Recorded Sex Assigned at Female 12/06/2019 3:36 PM PHOTOGRAPHIC DEVELOPER AND PRINTER Legal Sex Female 5:20 PM CDT Gender Identity Female 12/06/2019 3:36 PM PHOTOGRAPHIC DEVELOPER AND PRINTER Sexual Orientation Straight 12/06/2019 3: 36 PM PHOTOGRAPHIC DEVELOPER AND PRINTER Occupation Industry Job Start Date Job End Date Not on file Not on file Not on file Not on file documented as of this encounter Progress Notes * Nery Cadet - 12/14/2018 10:33 AM CST Clearance faxed to [phone] OGRAPHIC DEVELOPER AND PRINTER * Hari Rehman NP - 12/13/2018 3:00 [address] Discussed with Dr. Mcnamara Ok to hold plavix and cilostazol x 5 days. Would not recommend holding aspirin due to stents in iliac arteries. OGRAPHIC DEVELOPER AND PRINTER * Nery Cadet - 12/09/2018 2:[address] Ventura is requesting to hold all blood thinners for five days prior to Colonoscopy OGRAPHIC DEVELOPER AND PRINTER documented in this encounter Plan of Treatment Not on file documented as of this encounter Visit Diagnoses Not on filedocumented in this encounter Care Teams Carpenter Helper Hardwood Flooring Relationship Specialty Start Date End Date Deisi Andrews MD [address] [place] [address] [place] [address] PCP - General FAMILY PRACTICE 06/15/17 10/14/19 Asa [facility] [address] [place] [address] [place] Forensic Nurse CARDIOVASCULAR DISEASE 05/15/16 documented as of this encounter
--- OUTSIDE RECORDS SUMMARY | 2024-11-12 05:28 | XMS_ITS | Encounter Summary ---
Author Organization [facility] Address [address] [facility]. [place], [place] [address] [place] [address] Care Team Providers Care Counter Top Maker Name Role Phone Asa Mcnamara MD Unavailable [phone] Deisi Andrews MD Primary Care Provider [phone] Reason for Referral * Imaging (Routine) - Closed Specialty Diagnoses / Procedures Referred By Contac t Referred To Contact CARDIOLOGY Diagnoses PVD (peripheral vascular disease) with claudication (CMS/HCC) Procedures USV ART REST W KENZIE LOW EXT [facility] KENZIE LTD DILEEP Asa Mcnamara MD [address] [address] Phone: tel: fax: [facility] [place] [address] Phone: tel: Referral ID Status Reason Start Date Expiration Date Visits Re quested Visits Authorized [id number] Closed 07/19/2018 01/16/2019 1 1 MANAGER * Imaging (Routine) - Closed Specialty Diagnoses / Procedures Referred By Contac t Referred To Contact CARDIOLOGY Diagnoses Symptoms involving cardiovascular system PVD (peripheral vascular disease) with claudication (CMS/HCC) Procedures USV AORTA ILIAC IVC DUPLEX COMP Asa Mcnamara MD Three [address] [address] Phone: tel: fax: [facility] [place] [address] Phone: tel: Referral ID Status Reason Start Date Expiration Date Visits Re quested Visits Authorized [id number] Closed 07/19/2018 01/16/2019 1 1 MANAGER Reason for Visit * Imaging (Routine) - Closed Specialty Diagnoses / Procedures Referred By Contsamra t Referred To Contact CARDIOLOGY Diagnoses Symptoms involving cardiovascular system PVD (peripheral vascular disease) with claudication (CMS/HCC) Procedures USV AORTA ILIAC IVC DUPLEX COMP Asa Mcnamara MD Three [address] [address] Phone: tel: fax: [place] [address] Phone: tel: Referral ID Status Reason Start Date Expiration Date Visits Re quested Visits Authorized [id number] Closed 07/19/2018 01/16/2019 1 1 Encounter Details Date Type Department Care Team (Late st Contact Info) Description 12/19/2018 7:45 AM FOOD MANAGER - 12/19/2018 11:59 PM FOOD MANAGER Hospital Encounter [facility] Vascular Lab [place], [place] [id number] Asa Mcnamara MD Three [address] [address] Discharge Disposition: Home or Self Care (Routine Discharge) Social History Tobacco Use Types Packs/Day Years Used Date Smoking Tobacco: Every Day Cigarettes Smokeless Tobacco: Never Comments:1 pk day Alcohol Use Standard Drinks/Week Comments No 0 (1 standard drink = 0.6 oz pur e alcohol) Comments Unknown Sex and Gender Information Value Date Recorded Sex Assigned at Female 12/06/2019 3:36 PM FOOD MANAGER Legal Sex Female 5:20 PM CDT Gender Identity Female 12/06/2019 3:36 PM FOOD MANAGER Sexual Orientation Straight 12/06/2019 3: 36 PM FOOD MANAGER Occupation Industry Job Start Date Job [...] 75 MG tabletIndications :PVD (peripheral vascular disease) ([facility]) Take 1 tablet (75 mg [...] KENZIE LOW EXT Routine 12/19/2018 9:03 AM FOOD MANAGER PVD (peripheral vascular disease) with claudication USV AORTA ILIAC IVC DUPLEX COMP Routine 12/19/2018 9:03 AM FOOD MANAGER Symptoms involving cardiovascular system PVD (peripheral vascular disease) with claudication documented in this encounter Results * USV ART REST W KENZIE LOW EXT (12/19/2018 9:03 AM FOOD MANAGER) Anatomical Region Laterality Modality Extremity Vascular Ultraso und 12/19/2018 8:35 AM FOOD MANAGER Narrative 12/19/2018 5:40 PM FOOD MANAGER ?ARTERIAL DOPPLER - KENZIE ?BILATERAL LOWER EXTREMITY ? VASCULAR LAB Pat.Name: ??RODY CRUZ ?Pat.ID: ?[id number] ? St.Date: ?? 12/19/2018 ?Exam Time: 8:35:00 [...] A PSV ??41.8 cm/s ? Left Dist HYDRATOR OPERATOR ?? Dist HYDRATOR OPERATOR PSV ?33.3 cm/s ? Left Dist BHUMI ?? Dist BHUMI PSV ?54.6 cm/s ? Left Prox KALANI ?? Prox KALANI PSV ? 101 cm/s ? Right Dist Pop A ?? Dist Pop A PSV ??60.5 cm/s ? Right Dist HYDRATOR OPERATOR ?? Dist HYDRATOR OPERATOR PSV ?36.6 cm/s ? Right Dist BHUMI [...] EXTREMITY VASCULAR LAB Pat.Name: RODY CRUZ Pat.ID: [id number] .Date: 12/19/2018 Exam Time: 8:35:00 AM Study [...] Pop A PSV 41.8 cm/s Left Dist HYDRATOR OPERATOR Dist HYDRATOR OPERATOR PSV 33.3 cm/s Left Dist BHUMI Dist BHUMI PSV 54.6 cm/s Left Prox KALANI Prox KALANI PSV 101 cm/s Right Dist Pop A Dist Pop A PSV 60.5 cm/s Right Dist HYDRATOR OPERATOR Dist HYDRATOR OPERATOR PSV 36.6 cm/s Right Dist BHUMI Dist [...] ILIAC IVC DUPLEX COMP (12/19/2018 9:03 AM FOOD MANAGER) Anatomical Region Laterality Modality NA Vascular Ultraso und 12/19/2018 8:03 AM FOOD MANAGER Narrative 12/19/2018 6:24 PM FOOD MANAGER ?SYCLU-HOKGP-CNX DUPLEX IMAGING ? VASCULAR LAB Pat.Name: ??GELSO, RODY ?Pat.ID: ?[id number] ? St.Date: ?? 12/19/2018 ?Refer.: ??Deisi Andrews [...] Procedure Note Asa Mcnamara MD - 12/19/2018 TPAXS-HMIUH-PUT DUPLEX IMAGING VASCULAR LAB Pat.Name: RODY CRUZ Pat.ID: [id number] .Date: 12/19/2018 Refer.MD: Deisi Andrews Exam Time: [...] unspecified documented in this encounter Care Teams Counter Top Maker Relationship Specialty Start Date End Date Deisi Andrews MD [address] [place] [address] [place] [address] PCP - General FAMILY PRACTICE 06/15/17 10/14/19 Asa Mcnamara MD [facility]. [facility] [address] [place] [address] [place] Supervisor Data Processing CARDIOVASCULAR DISEASE 05/15/16 documented as of this encounter
--- OUTSIDE RECORDS SUMMARY | 2024-11-12 05:29 | XMS_ITS | Encounter Summary ---
Author Organization [facility] Address [address] [facility] [place] [address] [place] [address] Care Team Providers Care Nightman Name Role Phone Asa Mcnamara MD Unavailable [phone] Heber Adorno MD Primary Care Provider Unavailable Reason for Visit * Reason Onset Date Comments Reschedule 04/28/2017 Encounter Details Date Type Department Care Team (Late st Contact Info) Description 04/28/2017 Telephone [facility] AT [address] [address] Asa Mcnamara MD [address] [address] Reschedule Social History Tobacco Use Types Packs/Day Years Used Date Smoking Tobacco: Every Day Cigarettes Smokeless Tobacco: Never Alcohol Use Standard Drinks/Week Comments No 0 (1 standard drink = 0.6 oz pur e alcohol) Comments Unknown Sex and Gender Information Value Date Recorded Sex Assigned at Female 12/06/2019 3:36 PM SET OFF PRESS OPERATOR Legal Sex Female 5:20 PM CDT Gender Identity Female 12/06/2019 3:36 PM SET OFF PRESS OPERATOR Sexual Orientation Straight 12/06/2019 3: 36 PM SET OFF PRESS OPERATOR Occupation Industry Job Start Date Job End Date Not on file Not on file Not on file Not on file documented as of this encounter Progress Notes * Porsha David - 04/28/2017 11:01 AM CDT Received VM message requesting to reschedule her 04/30/17 appointment. She states she is at [facility], admitted last night for oxygen level of 90. Returned call, patient states she was admitted for observation for low oxygen level. States swelling in her feet are gone. Appointment rescheduled for 05/03 with Neva Nova. Requested BMP results from [facility] be faxed to our office. documented in this encounter Plan of Treatment Not on file documented as of this encounter Visit Diagnoses Not on filedocumented in this encounter Care Teams Nightman Relationship Specialty Start Date End Date Heber Adorno MD PCP - General 03/11/17 06/14/17 Asa Mcnamara MD [facility] [address] [place] [address] [place] Oral Surgery Physician CARDIOVASCULAR DISEASE 05/15/16 documented as of this encounter
--- OUTSIDE RECORDS SUMMARY | 2024-11-12 05:29 | XMS_ITS | Encounter Summary ---
Author Organization [facility] Address [address] [facility] [place] [address] [place] [address] Care Team Providers Care Scale Reclamation Tender Name Role Phone Asa Mcnamara MD Unavailable [phone] Deisi Andrews MD Primary Care Provider [phone] Reason for Referral * Imaging (Routine) - Closed Specialty Diagnoses / Procedures Referred By Contac t Referred To Contact CARDIOLOGY Diagnoses PVD (peripheral vascular disease) with claudication (CMS/HCC) Symptoms involving cardiovascular system Procedures USV AORTA ILIAC IVC DUPLEX COMP US AORTA DUPLEX COMP (32[address]) Asa Mcnamara MD Three [facility]. [address] [address] Phone: tel: fax: [facility] [place] [address] Phone: tel: Referral ID Status Reason Start Date Expiration Date Visits Re quested Visits Authorized [id number] Closed 08/18/2017 12/20/2017 1 1 * Imaging (Routine) - Closed Specialty Diagnoses / Procedures Referred By Contac t Referred To Contact CARDIOLOGY Diagnoses Stenosis of carotid artery, unspecified laterality Procedures USV CAROTID DUPLEX DILEEP (80097) Asa Mcnamara MD Three [facility]. [place] [address] [place] [address] Phone: tel: fax: [facility] [place] [address] Phone: tel: Referral ID Status Reason Start Date Expiration Date Visits Re quested Visits Authorized [id number] Closed 08/18/2017 12/20/2017 1 1 Reason for Visit * Reason Comments Follow Up PVD CHF Hypertension Encounter Details Date Type Department Care Team (Late st Contact Info) Description 08/18/2017 12:00 PM CDT Office Visit [facility] AT [address] [address] Asa Mcnamara MD Three [facility]. [address] [id number] Follow Up (PVD ); CHF; Hypertension Social History Tobacco Use Types Packs/Day Years Used Date Smoking Tobacco: Every Day Cigarettes Smokeless Tobacco: Never Comments:2 cig a day Alcohol Use Standard Drinks/Week Comments No 0 (1 standard drink = 0.6 oz pur e alcohol) Comments Unknown Sex and Gender Information Value Date Recorded Sex Assigned at Female 12/06/2019 3:36 PM TOOL DESIGN DRAFTSPERSON Legal Sex Female 5:20 PM CDT Gender Identity Female 12/06/2019 3:36 PM TOOL DESIGN DRAFTSPERSON Sexual Orientation Straight 12/06/2019 3: 36 PM TOOL DESIGN DRAFTSPERSON Occupation Industry Job Start Date Job End [...] the original note were not included. Index Yi All??languages Related??topics High Blood Pressure: Essential Hypertension [...] risk for high blood pressure. Developed by [employer]. Adult Advisor 2017.1 published by [employer]. Last modified: 2016-03-02 Last reviewed: 2016-02-28 This content is reviewed periodically and is subject to change as new health information becomes available. The information is intended to inform and educate and is not a replacement for medical evaluation, advice, diagnosis or treatment by a healthcare professional. References Adult Advisor 2017.1 Index Copyright ?? 2017 [employer], a division of [employer]. All rights reserved. documented in this encounter [...] RECOMMENDATIONS/PLAN: Ms. Cruz is stable from a cardiac standpoint. She [...] Haloperidol Seizure ??? Penicillins Redness ??? Resperal-Dm [Jqa-Nf-Nkj-Propyl Xidoch-Ype-Tppodcktv] Seizure ??? Triazolam Seizure Past Medical History: [...] CAROTID DUPLEX DILEEP Routine 11/19/2017 11:05 AM TOOL DESIGN DRAFTSPERSON Stenosis of carotid artery, unspecified laterality documented in this encounter Results * USV AORTA ILIAC IVC DUPLEX COMP (11/19/2017 11:15 AM TOOL DESIGN DRAFTSPERSON) Anatomical Region Laterality Modality NA Vascular Ultraso und 11/19/2017 9:37 AM TOOL DESIGN DRAFTSPERSON Narrative 11/20/2017 1:54 PM TOOL DESIGN DRAFTSPERSON ?PNPKX-PKZVA-ZYR DUPLEX IMAGING ? VASCULAR LAB Pat.Name: ??GELSO, RODY ?Pat.ID: ?[id number] ? St.Date: ?? 11/19/2017 ?Exam Time: 9:37:00 [...] Procedure Note Caesar Aguayo MD - 11/20/2017 CBAII-GHPAM-SPG DUPLEX IMAGING VASCULAR LAB Pat.Name: RODY CRUZ Pat.ID: [id number] St.Date: 11/19/2017 Exam Time: 9:37:00 AM Study [...] Final Result * USV CAROTID DUPLEX DILEEP (99344) (11/19/2017 11:05 AM TOOL DESIGN DRAFTSPERSON) Anatomical Region Laterality Modality Neck Vascular Ultraso und 11/19/2017 10:1 7 AM TOOL DESIGN DRAFTSPERSON Narrative 11/20/2017 3:26 AM TOOL DESIGN DRAFTSPERSON ?CAROTID DUPLEX IMAGING ? VASCULAR LAB Pat.Name: ??RODY CRUZ ?Pat.ID: ?[id number] ? St.Date: ?? 11/19/2017 ? Refer.MD: ??[id number] NIDA Brand Exam Time: 10:17:00 AM ? [...] IMAGING VASCULAR LAB Pat.Name: RODY CRUZ Pat.ID: [id number] .Date: 11/19/2017 : [id number] NIDA Brand Exam Time: 10:17:00 AM Study Type:SCOTTIE [...] laterality documented in this encounter Care Teams Scale Reclamation Tender Relationship Specialty Start Date End Date Deisi Andrews MD [address] [place] [address] [place] [address] PCP - General FAMILY PRACTICE 06/15/17 10/14/19 Asa Mcnamara MD [facility]. [facility] [address] [place] [address] [place] Oven Unloader CARDIOVASCULAR DISEASE 05/15/16 documented as of this encounter
--- OUTSIDE RECORDS SUMMARY | 2024-11-12 05:29 | XMS_ITS | Encounter Summary ---
Author Organization [facility] Address [facility] [facility]. [place], [place] [address] [place] [address] Care Team Providers Care Manager Medical Device Name Role Phone Asa Mcnamara MD Unavailable [phone] Deisi Andrews MD Primary Care Provider [phone] Encounter Details Date Type Department Care Team (Latest Contact Info) Description 10/14/[address] [facility] Social History Tobacco Use Types Packs/Day Years Used Date Smoking Tobacco: Every Day Cigarettes Smokeless Tobacco: Never Comments:2 cig a day Alcohol Use Standard Drinks/Week Comments No 0 (1 standard drink = 0.6 oz pur e alcohol) Comments Unknown Sex and Gender Information Value Date Recorded Sex Assigned at Female 12/06/2019 3:36 PM BUSINESS RISK CONSULTANT Legal Sex Female 5:20 PM CDT Gender Identity Female 12/06/2019 3:36 PM BUSINESS RISK CONSULTANT Sexual Orientation Straight 12/06/2019 3: 36 PM BUSINESS RISK CONSULTANT Occupation Industry Job Start Date Job End Date Not on file Not on file Not on file Not on file documented as of this encounter Plan of Treatment Not on file documented as of this encounter Visit Diagnoses Not on filedocumented in this encounter Care Teams Manager Medical Device Relationship Specialty Start Date End Date Deisi Andrews MD [address] [place], [place] [address] [address] PCP - General FAMILY PRACTICE 06/15/17 10/14/19 Asa Mcnamara MD [address] [facility]. [facility] [address] [place] [address] [place] Director Of Collections And Archives CARDIOVASCULAR DISEASE 05/15/16 documented as of this encounter
--- OUTSIDE RECORDS SUMMARY | 2024-11-12 05:29 | XMS_ITS | Encounter Summary ---
Author Organization [facility] Address [facility] [facility]. [place], [place] [address] [place] [address] Care Team Providers Care Public Records Researcher Name Role Phone Asa Mcnamara MD Unavailable [phone] Heber Adorno MD Primary Care Provider Unavailable Reason for Visit * Reason Onset Date Comments Edema 04/21/2017 Encounter Details Date Type Department Care Team (Late st Contact Info) Description 04/21/2017 Telephone [facility] AT [address] [address] Katt Walter RN Edema Social History Tobacco Use Types Packs/Day Years Used Date Smoking Tobacco: Every Day Cigarettes Smokeless Tobacco: Never Alcohol Use Standard Drinks/Week Comments No 0 (1 standard drink = 0.6 oz pur e alcohol) Comments Unknown Sex and Gender Information Value Date Recorded Sex Assigned at Female 12/06/2019 3:36 PM DIRECTOR DATA MANAGEMENT Legal Sex Female 5:20 PM CDT Gender Identity Female 12/06/2019 3:36 PM DIRECTOR DATA MANAGEMENT Sexual Orientation Straight 12/06/2019 3: 36 PM DIRECTOR DATA MANAGEMENT Occupation Industry Job Start Date Job End [...] go to the ER or if Dr. Mcnamara can see her today. She is scheduled for a procedure tomorrow with Dr. Mcnamara. I informed the patient I will notify the AIRCRAFT ACCESSORIES MECHANIC. The patient verbalized understanding and had no further questions. Message to Hari MURPHY documented in this encounter Plan of Treatment Not on file documented as of this encounter Visit Diagnoses Not on filedocumented in this encounter Care Teams Public Records Researcher Relationship Specialty Start Date End Date Heber Adorno MD PCP - General 03/11/17 06/14/17 Asa Mcnamara MD [facility] [address] [place] [address] [place] Vocational Guidance Counselor CARDIOVASCULAR DISEASE 05/15/16 documented as of this encounter
--- OUTSIDE RECORDS SUMMARY | 2024-11-12 05:29 | XMS_ITS | Encounter Summary ---
Author Organization [facility] Address [address] [facility] [place] [address] [place] [address] Care Team Providers Care Aircraft Communicator Name Role Phone Asa Mcnamara MD Unavailable [phone] Deisi Andrews MD Primary Care Provider [phone] Encounter Details Date Type Department Care Team (Late st Contact Info) Description 11/19/2017 Orders Only [facility] [place] [address] Asa Mcnamara MD Three [facility]. [facility] [address] [place] [address] Social History Tobacco Use Types Packs/Day Years Used Date Smoking Tobacco: Every Day Cigarettes Smokeless Tobacco: Never Comments:2 cig a day Alcohol Use Standard Drinks/Week Comments No 0 (1 standard drink = 0.6 oz pur e alcohol) Comments Unknown Sex and Gender Information Value Date Recorded Sex Assigned at Female 12/06/2019 3:36 PM CRUSHER 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 Legal Sex Female 5:20 PM CDT Gender Identity Female 12/06/2019 3:36 PM CRUSHER 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 Sexual Orientation Straight 12/06/2019 3: 36 PM CRUSHER 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 Occupation Industry Job Start Date Job End Date Not on file Not on file Not on file Not on file documented as of this encounter Plan of Treatment Not on file documented as of this encounter Results * (ABNORMAL) BASIC METABOLIC PANEL (11/19/2017 9:48 AM [facility]) GLUCOSE 136(H) 70 - 99 MG/DL 11/19/2017 10:44 AM [facility] BUN 10 7 - 18 MG/DL 11/19/2017 10:44 AM [facility] CREATININE S/P/B 0.76 0.55 - 1.02 MG/DL 11/19/2017 10:44 AM [facility] SODIUM S/P/B 137 136 - 145 MMOL/L 11/19/2017 10:44 AM [facility] POTASSIUM S/P/B 3.8 3.5 - 5.1 MMOL/L 11/19/2017 10:44 AM [facility] CHLORIDE S/P/B 103 100 - 108 MMOL/L 11/19/2017 10:44 AM [facility] CO2 26.7 21 - 32 MMOL/L 11/19/2017 10:44 AM [facility] CALCIUM S/P/B 8.9 8.5 - 10.1 MG/DL 11/19/2017 10:44 AM [facility] ANION GAP 11.1 8 - 20 MMOL/L 11/19/2017 10:44 AM [facility] BUN CREATININE RATIO 13.2 6 - 26 11/19/2017 10:44 AM [facility] EGFR NON-AFR. AMER. >60 >60 ML/MIN/1.7 3 M2 11/19/2017 10:44 AM [facility] EGFR AFR. AMER. >60 >60 ML/MIN/1.7 3 M2 11/19/2017 10:44 AM [facility] Comment: NOTE: eGFR is not calculated for patients <18 years of age. This is an estimated GFR (CKD EPI) and should not be used for calculating drug doses. 11/19/2017 9:48 AM CRUSHER 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 Asa Mcnamara MD LABORATORY Final Result [facility] [address] [place] [address], * (ABNORMAL) LIPID PANEL (11/19/2017 9:48 AM CRUSHER 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) CHOLESTEROL 186 <200 MG/DL 11/19/2017 10:44 AM [facility] TRIGLYCERIDES 602(H) <150 MG/DL 11/19/2017 10:44 AM [facility] Comment:REFLEXED DIRECT LDL DUE TO TRIG >400. HDL 30(L) >40.0 MG/DL 11/19/2017 10:44 AM [facility] LDL (CALCULATED) NOT CALCULATED <100 MG/L 11/19/2017 10:44 AM [facility] Comment:TRIGLYCERIDE >400 IN VALIDATES FRACTIONATION. NON HDL CHOLESTEROL 156(H) <130 MG/DL 11/19/2017 10:44 AM [facility] CHOL/HDL RATIO 6.2(H) 0.0 - 4.5 11/19/2017 10:44 AM [facility] VLDL CALCULATION NOT CALCULATED 5 - 55 MG/DL 11/19/2017 10:44 AM [facility] Comment:TRIGLYCERIDE >400 IN VALIDATES FRACTIONATION. LIPID INTERPRETATION 11/19/2017 10:44 AM [facility] Comment: NIH CONCENSUS REPORT RECOMMENDATIONS: [...] ?LDL ? >=160 ?>=130 11/19/2017 9:48 AM CRUSHER 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 us Asa Mcnamara MD LABORATORY Final Result [facility] [address] [place] [address], [place] [phone] documented in this encounter Visit Diagnoses Diagnosis Essential (primary) hypertension- Primary Unspecified essential hypertension Peripheral vascular disease (CMS/HCC) Peripheral vascular disease, unspecified Mixed hyperlipidemia documented in this encounter Care Teams Aircraft Communicator Relationship Specialty Start Date End Date Deisi Andrews MD [address] [place] [address] [place] [address] PCP - General FAMILY PRACTICE 06/15/17 10/14/19 Asa Mcnamara MD [facility]. [facility] [address] [place] [address] [place] Billet Checker CARDIOVASCULAR DISEASE 05/15/16 documented as of this encounter
--- OUTSIDE RECORDS SUMMARY | 2024-11-12 05:29 | XMS_ITS | Encounter Summary ---
Author Organization [facility] Address [facility] [facility] [place] [address] [place] [address] Care Team Providers Care Joint Machine Operator Name Role Phone Asa Mcnamara MD Unavailable [phone] Deisi Andrews MD Primary Care Provider [phone] Reason for Visit * Reason Onset Date Comments Testing 02/26/2017 Encounter Details Date Type Department Care Team (Late st Contact Info) Description 02/26/2017 Telephone [email or web address] AT [address] [address] Asa Mcnamara MD [address] [address] Testing Social History Tobacco Use Types Packs/Day Years Used Date Smoking Tobacco: Every Day Cigarettes Smokeless Tobacco: Never Comments:3 cig a day Alcohol Use Standard Drinks/Week Comments No 0 (1 standard drink = 0.6 oz pur e alcohol) Comments Unknown Sex and Gender Information Value Date Recorded Sex Assigned at Female 12/06/2019 3:36 PM ANIMAL SKINNER Legal Sex Female 5:20 PM CDT Gender Identity Female 12/06/2019 3:36 PM ANIMAL SKINNER Sexual Orientation Straight 12/06/2019 3: 36 PM ANIMAL SKINNER Occupation Industry Job Start Date Job End [...] filedocumented in this encounter Care Teams Joint Machine Operator Relationship Specialty Start Date End Date Deisi Andrews MD [address] [place] [address] [place] [address] PCP - General FAMILY PRACTICE 02/13/17 03/10/17 Asa Mcnamara MD [facility]. [facility] [address] [place] [address] Stephen Labeling Machine Operator CARDIOVASCULAR DISEASE 05/15/16 documented as of this encounter
--- OUTSIDE RECORDS SUMMARY | 2024-11-12 05:29 | XMS_ITS | Encounter Summary ---
Author Organization [facility] Address [address] [facility] [address] [place] [address] Care Team Providers Care Tip Mender Name Role Phone Asa Mcnamara MD Unavailable Deisi Andrews MD Primary Care Provider [phone] Encounter Details Date Type Department Care Team (Late st Contact Info) Description 12/01/2017 2:24 PM RETREAD BUILDER - 12/01/2017 11:59 PM RETREAD BUILDER Hospital Encounter [facility] [place], [place] [id number] Asa Mcnamara MD Three [facility]. [facility] [address] [place], [place] [id number] Discharge Disposition: Home or Self Care (Routine Discharge) Social History Tobacco Use Types Packs/Day Years Used Date Smoking Tobacco: Every Day Cigarettes Smokeless Tobacco: Never Comments:2 cig a day Alcohol Use Standard Drinks/Week Comments No 0 (1 standard drink = 0.6 oz pur e alcohol) Comments Unknown Sex and Gender Information Value Date Recorded Sex Assigned at Female 12/06/2019 3:36 PM RETREAD BUILDER Legal Sex Female 5:20 PM CDT Gender Identity Female 12/06/2019 3:36 PM RETREAD BUILDER Sexual Orientation Straight 12/06/2019 3: 36 PM RETREAD BUILDER Occupation Industry Job Start Date Job End [...] PROTHROMBIN TIME, VENOUS Routine 12/01/2017 2:36 PM RETREAD BUILDER PVD (peripheral vascular disease) with claudication BASIC METABOLIC PANEL Routine 12/01/2017 2:36 PM RETREAD BUILDER PVD (peripheral vascular disease) with claudication CBC W/DIFF AUTOMATED Routine 12/01/2017 2:36 PM RETREAD BUILDER PVD (peripheral vascular disease) with claudication documented in this encounter Results * PROTHROMBIN TIME, VENOUS (12/01/2017 2:36 PM RETREAD BUILDER) Pathologist [facility] PROTIME 11.6 9.6 - 12.2 SEC 12/01/2017 4:18 PM [facility] INR 1.1 12/01/2017 4:18 PM [facility] Comment: Recommended INR Therapeutic Goals: ??2.0-3.0 Routine Therapy ??2.5-3.5 Mechanical Prosthetic Valves (High Risk) ??3.0-4.0 Acute DC (to prevent Systemic Embolism) The INR is used only for patients on stable oral anticoagulant therapy. It makes no significant contribution to the diagnosis or treatment of patients whose Protime is prolonged for other reasons. 12/01/2017 2:36 PM RETREAD BUILDER Asa Mcnamara MD LABORATORY Final Result [address] [address], * CBC W/DIFF AUTOMATED (12/01/2017 2:36 PM RETREAD BUILDER) [facility] WBC 8.4 4.8 - 10.8 x10'3/uL 12/01/2017 3:45 PM [facility] RBC 4.46 4.20 - 5.40 x10'6/uL 12/01/2017 3:45 PM [facility] HGB 12.7 12.0 - 16.0 G/DL 12/01/2017 3:45 PM [facility] HCT 38.2 38.0 - 48.0 % 12/01/2017 3:45 PM [facility] MCV 85.7 81.0 - 99.0 FL 12/01/2017 3:45 PM [facility] MCH 28.5 27.0 - 31.0 PG 12/01/2017 3:45 PM [facility] MCHC 33.2 32.0 - 36.0 G/DL 12/01/2017 3:45 PM RETREAD BUILDER [facility] RDW 13.5 11.5 - 14.5 % 12/01/2017 3:45 PM [facility] PLT 226 130 - 400 x10'3/uL 12/01/2017 3:45 PM [facility] MPV 10.2 9.3 - 12.2 FL 12/01/2017 3:45 PM RETREAD BUILDER [facility] NEUTROPHILS % 59.0 43.0 - 65.0 % 12/01/2017 3:45 PM [facility] LYMPHOCYTES % 29.9 20.0 - 46.0 % 12/01/2017 3:45 PM [facility] MONOCYTES % 7.4 5.0 - 12.0 % 12/01/2017 3:45 PM [facility] EOSINOPHILS 2.7 1.0 - 3.0 % 12/01/2017 3:45 PM [facility] BASOPHILS 0.5 0.0 - 1.0 % 12/01/2017 3:45 PM [facility] IMMATURE GRANS % 0.5 0.0 - 1.0 % 12/01/2017 3:45 PM [facility] 12/01/2017 2:36 PM RETREAD BUILDER us Asa Mcnamara MD LABORATORY Final Result [facility] [address] [place] [address], * (ABNORMAL) BASIC METABOLIC PANEL (12/01/2017 2:36 PM RETREAD BUILDER) [facility] Signature GLUCOSE 153(H) 70 - 99 MG/DL 12/01/2017 3:57 PM [facility] BUN 10 7 - 18 MG/DL 12/01/2017 3:57 PM [facility] CREATININE S/P/B 0.81 0.55 - 1.02 MG/DL 12/01/2017 3:57 PM [facility] SODIUM S/P/B 141 136 - 145 MMOL/L 12/01/2017 3:57 PM [facility] POTASSIUM S/P/B 3.2(L) 3.5 - 5.1 MMOL/L 12/01/2017 3:57 PM [facility] CHLORIDE S/P/B 106 100 - 108 MMOL/L 12/01/2017 3:57 PM [facility] CO2 26.6 21 - 32 MMOL/L 12/01/2017 3:57 PM [facility] CALCIUM S/P/B 8.5 8.5 - 10.1 MG/DL 12/01/2017 3:57 PM [facility] ANION GAP 11.6 8 - 20 MMOL/L 12/01/2017 3:57 PM [facility] BUN CREATININE RATIO 12.3 6 - 26 12/01/2017 3:57 PM [facility] EGFR NON-AFR. AMER. >60 >60 ML/MIN/1.7 3 M2 12/01/2017 3:57 PM [facility] EGFR AFR. AMER. >60 >60 ML/MIN/1.7 3 M2 12/01/2017 3:57 PM [facility] Comment: NOTE: eGFR is not calculated for patients <18 years of age. This is an estimated GFR (CKD EPI) and should not be used for calculating drug doses. 12/01/2017 2:36 PM RETREAD BUILDER Asa Mcnamara MD LABORATORY Final Result [facility] [address] [facility] [place] [address], documented in this encounter Visit Diagnoses Diagnosis PVD (peripheral vascular disease) with claudication (CMS/HCC) Peripheral vascular disease, unspecified documented in this encounter Care Teams Tip Mender Relationship Specialty Start Date End Date Deisi Andrews MD [address] [place] [address] [place] [address] PCP - General FAMILY PRACTICE 06/15/17 10/14/19 Asa Mcnamara MD Three [facility]. [place] [address] [place] [address] [place] Manager Installation CARDIOVASCULAR DISEASE 05/15/16 documented as of this encounter
--- OUTSIDE RECORDS SUMMARY | 2024-11-12 05:29 | XMS_ITS | Encounter Summary ---
Author Organization [facility] Address [facility] [facility]. [place], [place] [address] [place] [address] Care Team Providers Care Product Safety Compliance Leader Name Role Phone Asa Mcnamara MD Unavailable [phone] Heber Adorno MD Primary Care Provider Unavailable Deisi Andrews MD Primary Care Provider [phone] Encounter Details Date Type Department Care Team (Late st Contact Info) Description 06/09/2017 Scan [facility] AT [address] [address] Scanned, Documents Social History Tobacco Use Types Packs/Day Years Used Date Smoking Tobacco: Every Day Cigarettes Smokeless Tobacco: Never Comments:2 cig a day Alcohol Use Standard Drinks/Week Comments No 0 (1 standard drink = 0.6 oz pur e alcohol) Comments Unknown Sex and Gender Information Value Date Recorded Sex Assigned at Female 12/06/2019 3:36 PM TRAINING INTERN Legal Sex Female 5:20 PM CDT Gender Identity Female 12/06/2019 3:36 PM TRAINING INTERN Sexual Orientation Straight 12/06/2019 3: 36 PM TRAINING INTERN Occupation Industry Job Start Date Job End Date Not on file Not on file Not on file Not on file documented as of this encounter Plan of Treatment Not on file documented as of this encounter Visit Diagnoses Not on filedocumented in this encounter Care Teams Product Safety Compliance Leader Relationship Specialty Start Date End Date Heber Adorno MD PCP - General 03/11/17 06/14/17 Deisi Andrews MD [address] [place] [address] [place] [address] PCP - General FAMILY PRACTICE 06/15/17 10/14/19 Asa Mcnamara MD [facility]. [facility] [address] [place] [address] [place] Lockstitch Lining Maker CARDIOVASCULAR DISEASE 05/15/16 documented as of this encounter
--- OUTSIDE RECORDS SUMMARY | 2024-11-12 05:29 | XMS_ITS | Encounter Summary ---
Author Organization [facility] - [facility] Address [facility]. [place], [place] [address] [place] [address] Care Team Providers Care Mold Chipper Name Role Phone Asa Mcnamara MD Unavailable [phone] Heber Adorno MD Primary Care Provider Unavailable Deisi Andrews MD Primary Care Provider [phone] Encounter Details Date Type Department Care Team (Latest Contact Info) Description 05/03/2017 Abstract [facility] Medical Group Social History Tobacco Use Types Packs/Day Years Used Date Smoking Tobacco: Every Day Cigarettes Smokeless Tobacco: Never Alcohol Use Standard Drinks/Week Comments No 0 (1 standard drink = 0.6 oz pur e alcohol) Comments Unknown Sex and Gender Information Value Date Recorded Sex Assigned at Female 12/06/2019 3:36 PM LOIN PULLER Legal Sex Female 5:20 PM CDT Gender Identity Female 12/06/2019 3:36 PM LOIN PULLER Sexual Orientation Straight 12/06/2019 3: 36 PM LOIN PULLER Occupation Industry Job Start Date Job End Date Not on file Not on file Not on file Not on file documented as of this encounter Plan of Treatment Not on file documented as of this encounter Visit Diagnoses Not on filedocumented in this encounter Care Teams Mold Chipper Relationship Specialty Start Date End Date Heber Adorno MD PCP - General 03/11/17 06/14/17 Deisi Andrews MD [address] [place] [address] [place] [address] PCP - General FAMILY PRACTICE 06/15/17 10/14/19 Asa Mcnamara MD [address] [place] [address] [place] Master Barber CARDIOVASCULAR DISEASE 05/15/16 documented as of this encounter
--- OUTSIDE RECORDS SUMMARY | 2024-11-12 05:29 | XMS_ITS | Encounter Summary ---
Author Organization [facility] - [facility] Address Count includes the [facility]. [place], [place] [address] [place] [address] Care Team Providers Care World Language Teacher Name Role Phone Asa Mcnamara MD Unavailable [phone] Deisi Andrews MD Primary Care Provider [phone] Encounter Details Date Type Department Care Team (Latest Contact Info) Description 09/03/2017 Abstract [facility] Medical Group Social History Tobacco Use Types Packs/Day Years Used Date Smoking Tobacco: Every Day Cigarettes Smokeless Tobacco: Never Comments:2 cig a day Alcohol Use Standard Drinks/Week Comments No 0 (1 standard drink = 0.6 oz pur e alcohol) Comments Unknown Sex and Gender Information Value Date Recorded Sex Assigned at Female 12/06/2019 3:36 PM NUMERICAL CONTROL TOOL PROGRAMMER Legal Sex Female 5:20 PM CDT Gender Identity Female 12/06/2019 3:36 PM NUMERICAL CONTROL TOOL PROGRAMMER Sexual Orientation Straight 12/06/2019 3: 36 PM NUMERICAL CONTROL TOOL PROGRAMMER Occupation Industry Job Start Date Job End Date Not on file Not on file Not on file Not on file documented as of this encounter Plan of Treatment Not on file documented as of this encounter Visit Diagnoses Not on filedocumented in this encounter Care Teams World Language Teacher Relationship Specialty Start Date End Date Deisi Andrews MD [address] [place] [address] [place] [address] PCP - General FAMILY PRACTICE 06/15/17 10/14/19 Asa Mcnamara MD Three [facility]. [facility] [address] [place] [address] [place] Solar Hot Water Installer CARDIOVASCULAR DISEASE 05/15/16 documented as of this encounter
--- OUTSIDE RECORDS SUMMARY | 2024-11-12 05:29 | XMS_ITS | Encounter Summary ---
Author Organization [facility] Address [address] [facility]. [place], [place] [address] [place] [address] Care Team Providers Care Adjunct Nursing Faculty Name Role Phone Asa Mcnamara MD Unavailable [phone] Deisi Andrews MD Primary Care Provider [phone] Reason for Referral * Imaging (Routine) - Closed Specialty Diagnoses / Procedures Referred By Contac t Referred To Contact CARDIOLOGY Diagnoses Symptoms involving cardiovascular system PVD (peripheral vascular disease) (CMS/HCC) Essential hypertension Procedures USV POST/PRE/OTHER KENZIE DILEEP Asa Mcnamara MD [facility]. [address] [address] Phone: tel: fax: [facility] [place] [address] Phone: tel: Referral ID Status Reason Start Date Expiration Date Visits Re quested Visits Authorized [id number] Closed 01/05/2018 07/28/2018 1 1 ITION AIDES TEACHER * Imaging (Routine) - Closed Specialty Diagnoses / Procedures Referred By Contac t Referred To Contact CARDIOLOGY Diagnoses Symptoms involving cardiovascular system PVD (peripheral vascular disease) (CMS/HCC) Essential hypertension Procedures USV AORTA ILIAC IVC DUPLEX COMP Asa Mcnamara MD Three [facility]. [facility] [address] [place] [address] Phone: tel: fax: [facility] [place] [address] Phone: tel: Referral ID Status Reason Start Date Expiration Date Visits Re quested Visits Authorized [id number] Closed 01/05/2018 07/28/2018 1 1 ITION AIDES TEACHER Reason for Visit * Reason Comments Peripheral Vascular Disease S/P PTC dileep iliac arteries, KENZIE & AO duplex CHF Hypertension Encounter Details Date Type Department Care Team (Late st Contact Info) Description 01/05/2018 11:00 AM NUTRITION AIDES TEACHER Office Visit [facility] [place] [facility], [facility] [address] [place], [place] [id number] sAa Mcnamara MD Three [facility]. [facility] [address] [place], [place] [address] Peripheral Vascular Disease (S/P PTC idleep iliac arteries, KENZIE & AO duplex); CHF; Hypertension Social History Tobacco Use Types Packs/Day Years Used Date Smoking Tobacco: Every Day Cigarettes Smokeless Tobacco: Never Comments:1 pk day Alcohol Use Standard Drinks/Week Comments No 0 (1 standard drink = 0.6 oz pur e alcohol) Comments Unknown Sex and Gender Information Value Date Recorded Sex Assigned at Female 12/06/2019 3:36 PM NUTRITION AIDES TEACHER Legal Sex Female 5:20 PM CDT Gender Identity Female 12/06/2019 3:36 PM NUTRITION AIDES TEACHER Sexual Orientation Straight 12/06/2019 3: 36 PM NUTRITION AIDES TEACHER Occupation Industry Job Start Date Job End Date Not on file Not on file Not on file Not on file documented as of this encounter Last Filed Vital Signs Vital Sign Reading Time Taken Comments Blood Pressure 120/82 01/05/2018 12:11 PM NUTRITION AIDES TEACHER re taken by Pulse 88 01/05/2018 10:59 AM NUTRITION AIDES TEACHER Temperature - - Respiratory Rate - - Oxygen Saturation 98% 01/05/2018 10:59 AM NUTRITION AIDES TEACHER Inhaled Oxygen Concentration - - Weight 96.2 kg (212 lb) 01/05/2018 10:59 AM NUTRITION AIDES TEACHER Height 160 cm (5' 3 ) 01/05/2018 10:59 AM NUTRITION AIDES TEACHER Body Mass Index 37.55 01/05/2018 10:59 AM NUTRITION AIDES TEACHER documented in this encounter Patient Instructions * Patient Instructions* Renan Lee - 01/05/2018 11:00 AM NUTRITION AIDES TEACHER Images from the original note were not [...] or stroke. Where can I learn more? [place] Heart Association http://www.heart.org/HEARTORG/Conditions/More/PeripheralArteryDisease/About-Lily jupihx-Jcihyl-Djnrcdt-PAD_[facility]_301301_Article.jsp Citizen [place] Heart Association http://www.heart.org/HEARTORG/Conditions/More/PeripheralArteryDisease/Prevention -zdi-Jdvzrnkgt-nf-PAD_[facility]_301308_Article.jsp National Heart Robbins ? Senior Health http://nihseniorhealth.gov/peripheralarterialdisease/whatispad/01.html National Heart Lung and Blood Robbins http://www.nhlbi.nih.gov/health/health-topics/topics/pad/ Vascular Disease Foundation http://www.vdf.org/diseaseinfo/pad/ Last Reviewed [...] right for you. Copyright Copyright ?? 2017 [employer]. and its affiliates and/or licensors. All rights reserved. ITION AIDES TEACHER documented in this encounter Progress Notes [...] 2 (two) times daily., Disp: ,Rfl: ??? isosorbide mononitrate ER 30 MG 24 [...] Haloperidol Seizure ??? Penicillins Redness ??? Resperal-Dm [Ibr-Xt-Ewr-Propyl Njhucl-Umr-Xaqabluzp] Seizure ??? Triazolam Seizure Past Medical History: [...] PANEL 5. Stenosis of right carotid artery ITION AIDES TEACHER documented in this encounter Plan of Treatment Not on file documented as of this encounter Results * USV AORTA ILIAC IVC DUPLEX COMP (06/27/2018 9:58 AM CDT) Anatomical Region Laterality Modality NA Vascular Ultraso und 06/27/2018 8:44 AM CDT Narrative 06/27/2018 5:39 PM CDT ?FDFUM-WQMVT-MLT DUPLEX IMAGING ? VASCULAR LAB Pat.Name: ??ARNOLD CRUZ ?Pat.ID: ?[id number] ? St.Date: ?? 06/27/2018 ? Refer.MD: ??Deisi [...] Procedure Note Asa Mcnamara MD - 06/27/2018 VTJFM-TBIOR-KGL DUPLEX IMAGING VASCULAR LAB Pat.Name: ARNOLD CRUZ Mary Jo.ID: [id number] .Date: 06/27/2018 Refer.MD: Deisi Andrews Exam Time: [...] VASCULAR LAB ? Pat.Name: ??GELSO, ARNOLD ?Pat.ID: ?[id number] ? St.Date: ?? 06/27/2018 ? Refer.: ??Deisi [...] anomaly. ++++++++++++++++++++++++++++++++++++ MEASUREMENTS: ++++++++++++++++++++++++++++++++++++ ?DOPPLER Left Dist SPINNING FRAME CHANGER ?? Dist SPINNING FRAME CHANGER PSV ?66.8 cm/s ? Left Dist BHUMI ?? Dist BHUMI PSV ?59.1 cm/s ? Right Dist SPINNING FRAME CHANGER ?? Dist SPINNING FRAME CHANGER PSV ?66.6 cm/s ? Right Dist BHUMI [...] EXTREMITY VASCULAR LAB Pat.Name: ARNOLD CRUZ Pat.ID: [id number] St.Date: 06/27/2018 Refer.MD: Deisi Andrews Exam Time: [...] anomaly. ++++++++++++++++++++++++++++++++++++ MEASUREMENTS: ++++++++++++++++++++++++++++++++++++ DOPPLER Left Dist SPINNING FRAME CHANGER Dist SPINNING FRAME CHANGER PSV 66.8 cm/s Left Dist BHUMI Dist BHUMI PSV 59.1 cm/s Right Dist SPINNING FRAME CHANGER Dist SPINNING FRAME CHANGER PSV 66.6 cm/s Right Dist BHUMI Dist [...] PM Asa Mcnamara M.D. Asa Mcnamara MD [facility] Final Result * (ABNORMAL) LIPID PANEL (06/27/2018 8:03 AM CDT) CHOLESTEROL 221(H) <200 MG/DL 06/27/2018 9:23 AM CDT [facility] TRIGLYCERIDES 548(H) <150 MG/DL 06/27/2018 9:23 AM T [facility] Comment:REFLEXED DIRECT LDL DUE TO TRIG >400. HDL 30(L) >40.0 MG/DL 06/27/2018 9:23 AM T [facility] LDL (CALCULATED) NOT CALCULATED <100 MG/DL 06/27/2018 9:23 AM T [facility] Comment:TRIGLYCERIDE >400 IN VALIDATES FRACTIONATION. NON HDL CHOLESTEROL 191(H) <130 MG/DL 06/27/2018 9:23 AM [facility] CHOL/HDL RATIO 7.4(H) 0.0 - 4.5 06/27/2018 9:23 AM [facility] VLDL CALCULATION NOT CALCULATED 5 - 55 MG/DL 06/27/2018 9:23 AM [facility] Comment:TRIGLYCERIDE >400 IN VALIDATES FRACTIONATION. LIPID INTERPRETATION 06/27/2018 9:23 AM [facility] Comment: NIH CONCENSUS REPORT RECOMMENDATIONS: [...] CDT Asa Mcnamara MD LABORATORY Final Result [facility] [address] [place] [address], documented in this encounter Visit Diagnoses Diagnosis [...] infarction documented in this encounter Care Teams Adjunct Nursing Faculty Relationship Specialty Start Date End Date Deisi Andrews MD [address] [place] [address] [place] [address] PCP - General FAMILY PRACTICE 06/15/17 10/14/19 Asa Mcnamara MD [address] [place] [address] [place] [address] [place] Field Service Supervisor CARDIOVASCULAR DISEASE 05/15/16 documented as of this encounter
--- OUTSIDE RECORDS SUMMARY | 2024-11-12 05:29 | XMS_ITS | Encounter Summary ---
Author Organization [facility] Address [facility]6 [facility]. [place], [place] [address] [place] [address] Care Team Providers Care Round Boner Name Role Phone Asa Mcnamara MD Unavailable [phone] Deisi Andrews MD Primary Care Provider [phone] Heber Adorno MD Primary Care Provider Unavailable Deisi Andrews MD Primary Care Provider [phone] Encounter Details Date Type Department Care Team (Latest Contact Info) Description 03/09/2017 Abstract [facility] Medical Group Social History Tobacco Use Types Packs/Day Years Used Date Smoking Tobacco: Every Day Cigarettes Smokeless Tobacco: Never Comments:3 cig a day Alcohol Use Standard Drinks/Week Comments No 0 (1 standard drink = 0.6 oz pur e alcohol) Comments Unknown Sex and Gender Information Value Date Recorded Sex Assigned at Female 12/06/2019 3:36 PM OFFICE CLIN ASST Legal Sex Female 5:20 PM CDT Gender Identity Female 12/06/2019 3:36 PM OFFICE CLIN ASST Sexual Orientation Straight 12/06/2019 3: 36 PM OFFICE CLIN ASST Occupation Industry Job Start Date Job End Date Not on file Not on file Not on file Not on file documented as of this encounter Plan of Treatment Not on file documented as of this encounter Visit Diagnoses Not on filedocumented in this encounter Care Teams Round Boner Relationship Specialty Start Date End Date Deisi Andrews MD [address] [place] [address] PCP - General FAMILY PRACTICE 02/13/17 03/10/17 Heebr Adorno MD PCP - General 03/11/17 06/14/17 Deisi Andrews MD [address] [place] [address] [place] [address] PCP - General FAMILY PRACTICE 06/15/17 10/14/19 Asa Mcnamara MD [facility]. [email or web address] [address] [place] [address] [place] Industrial Pharmacist CARDIOVASCULAR DISEASE 05/15/16 documented as of this encounter
--- OUTSIDE RECORDS SUMMARY | 2024-11-12 05:29 | XMS_ITS | Encounter Summary ---
Author Organization [facility] Address [address] [facility] [place] [address] [place] [address] Care Team Providers Care Metal Cleaner Name Role Phone Asa Mcnamara MD Unavailable [phone] Heber Adorno MD Primary Care Provider Unavailable Encounter Details Date Type Department Care Team (Late st Contact Info) Description 04/22/2017 SQUEEGEE FINISHER ONLY [facility] [address] [place] [address] Asa Mcnamara MD [address] [address] Social History Tobacco Use Types Packs/Day Years Used Date Smoking Tobacco: Every Day Cigarettes Smokeless Tobacco: Never Alcohol Use Standard Drinks/Week Comments No 0 (1 standard drink = 0.6 oz pur e alcohol) Comments Unknown Sex and Gender Information Value Date Recorded Sex Assigned at Female 12/06/2019 3:36 PM PLATE MOLDER Legal Sex Female 5:20 PM CDT Gender Identity Female 12/06/2019 3:36 PM PLATE MOLDER Sexual Orientation Straight 12/06/2019 3: 36 PM PLATE MOLDER Occupation Industry Job Start Date Job End Date Not on file Not on file Not on file Not on file documented as of this encounter OR Notes * Op Note - Asa Mcnamara MD - 04/22/2017 2:16 PM CDT RODY CRUZ MD: Acct: [id number] Admit/Service Date: 04/22/17 Discharge Date: 04/22/17 : 1960 Pt Type: DEP SDC Sex: F Ord Site: [facility] CHART DOCUMENT PREOPERATIVE DIAGNOSIS: POSTOPERATIVE DIAGNOSIS: [...] right common femoral artery was cannulated. A 5-Nauruan sheath was placed. A Omni Flush catheter [...] Omni Flush catheter was exchanged for a 4-Nauruan [place] catheter. This catheter was very carefully advanced [...] iliac artery below the stent. 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 No significant [...] 04/26/2017 01:15 P ASA MCNAMARA M.D. P #[id number] P/ma cc: Michelle RUIZ M.D. documented in this encounter Plan of Treatment Not on file documented as of this encounter Visit Diagnoses Not on filedocumented in this encounter Care Teams Metal Cleaner Relationship Specialty Start Date End Date Heber Adorno MD PCP - General 03/11/17 06/14/17 Asa Mcnamara MD [facility]. [place] [place] [address] [place] User Experience Team Lead CARDIOVASCULAR DISEASE 05/15/16 documented as of this encounter
--- OUTSIDE RECORDS SUMMARY | 2024-11-12 05:29 | XMS_ITS | Encounter Summary ---
Author Organization [facility] Address [facility]ly [facility] [facility] [place] [address] [place] [address] Care Team Providers Care Telephone Instrument Supervisor Name Role Phone Asa Mcnamara MD Unavailable [phone] Deisi Andrews MD Primary Care Provider [phone] Encounter Details Date Type Department Care Team (Late st Contact Info) Description 12/31/2017 Orders Only [facility] [address] [facility] [address] Asa Mcnamara MD Three [facility]. [address] [place] [address] Social History Tobacco Use Types Packs/Day Years Used Date Smoking Tobacco: Every Day Cigarettes Smokeless Tobacco: Never Comments:2 cig a day Alcohol Use Standard Drinks/Week Comments No 0 (1 standard drink = 0.6 oz pur e alcohol) Comments Unknown Sex and Gender Information Value Date Recorded Sex Assigned at Female 12/06/2019 3:36 PM ASSOCIATE DATA SCIENTIST Legal Sex Female 5:20 PM CDT Gender Identity Female 12/06/2019 3:36 PM ASSOCIATE DATA SCIENTIST Sexual Orientation Straight 12/06/2019 3: 36 PM ASSOCIATE DATA SCIENTIST Occupation Industry Job Start Date Job End Date Not on file Not on file Not on file Not on file documented as of this encounter Plan of Treatment Not on file documented as of this encounter Results * (ABNORMAL) LIPID PANEL (12/31/2017 9:23 AM [facility]) [facility] Signature CHOLESTEROL 177 <200 MG/DL 12/31/2017 10:18 AM [facility] TRIGLYCERIDES 305(H) <150 MG/DL 12/31/2017 10:18 AM [facility] HDL 35(L) >40.0 MG/DL 12/31/2017 10:18 AM [facility] LDL (CALCULATED) 81.0 <100 MG/L 12/31/19 18 10:18 AM [facility] NON HDL CHOLESTEROL 142(H) <130 MG/DL 12/31/2017 10:18 AM [facility] CHOL/HDL RATIO 5.1(H) 0.0 - 4.5 12/31/2017 10:18 AM [facility] VLDL CALCULATION 61(H) 5 - 55 MG/DL 12/31/2017 10:18 AM [facility] LIPID INTERPRETATION 12/31/2017 10:18 AM [facility] Comment: NIH CONCENSUS [...] ?LDL ? >=160 ?>=130 12/31/2017 9:23 AM ASSOCIATE DATA SCIENTIST us Asa Mcnamara MD LABORATORY Final Result [facility] [address] [place] [address], * (ABNORMAL) BASIC METABOLIC PANEL (12/31/2017 9:23 AM ASSOCIATE DATA SCIENTIST) GLUCOSE 129(H) 70 - 99 MG/DL 12/31/2017 10:18 AM [facility] BUN 13 7 - 18 MG/DL 12/31/2017 10:18 AM [facility] CREATININE S/P/B 0.80 0.55 - 1.02 MG/DL 12/31/2017 10:18 AM [facility] SODIUM S/P/B 139 136 - 145 MMOL/L 12/31/2017 10:18 AM [facility] POTASSIUM S/P/B 4.2 3.5 - 5.1 MMOL/L 12/31/2017 10:18 AM [facility] CHLORIDE S/P/B 106 100 - 108 MMOL/L 12/31/2017 10:18 AM [facility] CO2 27.1 21 - 32 MMOL/L 12/31/2017 10:18 AM [facility] CALCIUM S/P/B 8.7 8.5 - 10.1 MG/DL 12/31/2017 10:18 AM [facility] ANION GAP 10.1 8 - 20 MMOL/L 12/31/2017 10:18 AM [facility] BUN CREATININE RATIO 16.2 6 - 26 12/31/2017 10:18 AM [facility] EGFR NON-AFR. AMER. >60 >60 ML/MIN/1.7 3 M2 12/31/2017 10:18 AM [facility] EGFR AFR. AMER. >60 >60 ML/MIN/1.7 3 M2 12/31/2017 10:18 AM [facility] Comment: NOTE: eGFR is not calculated for patients <18 years of age. This is an estimated GFR (CKD EPI) and should not be used for calculating drug doses. 12/31/2017 9:23 AM ASSOCIATE DATA SCIENTIST Asa Mcnamara MD LABORATORY Final Result [facility] [address] [place] [address], [place] [phone] documented in this encounter Visit Diagnoses Diagnosis Mixed hyperlipidemia- Primary documented in this encounter Care Teams Telephone Instrument Supervisor Relationship Specialty Start Date End Date Deisi Andrews MD [address] [place] [address] [place] [address] PCP - General FAMILY PRACTICE 06/15/17 10/14/19 Asa Mcnamara MD Three [facility]. [facility] [address] [place] [address] [place] Patch Machine Operator CARDIOVASCULAR DISEASE 05/15/16 documented as of this encounter
--- OUTSIDE RECORDS SUMMARY | 2024-11-12 05:29 | XMS_ITS | Encounter Summary ---
Author Organization [facility] Address [address] [facility] [place] [address] [place] [address] Care Team Providers Care Sustainability Communicator Name Role Phone Asa Mcnamara MD Unavailable [phone] Deisi Andrews MD Primary Care Provider [phone] Encounter Details Date Type Department Care Team (Late st Contact Info) Description 11/19/2017 9:19 AM ARMOR OFFICER - 11/19/2017 11:59 PM [facility] Hospital Encounter [facility] [place] [id number] Asa Mcnamara MD Three [facility]. [facility] [address] [place], [place] [id number] Discharge Disposition: Home or Self Care (Routine Discharge) Social History Tobacco Use Types Packs/Day Years Used Date Smoking Tobacco: Every Day Cigarettes Smokeless Tobacco: Never Comments:2 cig a day Alcohol Use Standard Drinks/Week Comments No 0 (1 standard drink = 0.6 oz pur e alcohol) Comments Unknown Sex and Gender Information Value Date Recorded Sex Assigned at Female 12/06/2019 3:36 PM ARMOR OFFICER Legal Sex Female 5:20 PM CDT Gender Identity Female 12/06/2019 3:36 PM ARMOR OFFICER Sexual Orientation Straight 12/06/2019 3: 36 PM ARMOR OFFICER Occupation Industry Job Start Date Job [...] BASIC METABOLIC PANEL Routine 11/19/2017 9:48 AM ARMOR OFFICER Essential (primary) hypertension Peripheral vascular disease Mixed hyperlipidemia LIPID PANEL Routine 11/19/2017 9:48 AM ARMOR OFFICER Essential (primary) hypertension Peripheral vascular disease Mixed hyperlipidemia LIPOPROTEIN, LDL CHOL, DIRECT Routine 11/19/2017 9:48 AM ARMOR OFFICER documented in this encounter Results * (ABNORMAL) LIPOPROTEIN, LDL CHOL, DIRECT (11/19/2017 9:48 AM ARMOR OFFICER) DIRECT LDL 101(H) <100 MG/DL 11/19/2017 11:10 AM ARMOR OFFICER [facility] 11/19/2017 9:48 AM ARMOR OFFICER us Asa Mcnamara MD LABORATORY Final Result [facility] [address] [place] [address], * (ABNORMAL) LIPID PANEL (11/19/2017 9:48 AM [facility]) CHOLESTEROL 186 <200 MG/DL 11/19/2017 10:44 AM [facility] TRIGLYCERIDES 602(H) <150 MG/DL 11/19/2017 10:44 AM [facility] Comment:REFLEXED DIRECT LDL DUE TO TRIG >400. HDL 30(L) >40.0 MG/DL 11/19/2017 10:44 AM [facility] LDL (CALCULATED) NOT CALCULATED <100 MG/L 11/19/2017 10:44 AM [facility] Comment:TRIGLYCERIDE >400 IN VALIDATES FRACTIONATION. NON HDL CHOLESTEROL 156(H) <130 MG/DL 11/19/2017 10:44 AM [facility] CHOL/HDL RATIO 6.2(H) 0.0 - 4.5 11/19/2017 10:44 AM [facility] VLDL CALCULATION NOT CALCULATED 5 - 55 MG/DL 11/19/2017 10:44 AM [facility] Comment:TRIGLYCERIDE >400 IN VALIDATES FRACTIONATION. LIPID INTERPRETATION 11/19/2017 10:44 AM [facility] Comment: NIH CONCENSUS REPORT RECOMMENDATIONS: [...] ?LDL ? >=160 ?>=130 11/19/2017 9:48 AM ARMOR OFFICER Asa Mcnamara MD LABORATORY Final Result Performing Organization Address [facility] Co de Phone Number [facility] [address] [place] [address], * (ABNORMAL) BASIC METABOLIC PANEL (11/19/2017 9:48 AM ARMOR OFFICER) GLUCOSE 136(H) 70 - 99 MG/DL 11/19/2017 10:44 AM ARMOR OFFICER [facility] BUN 10 7 - 18 MG/DL 11/19/2017 10:44 AM ARMOR OFFICER [facility] CREATININE S/P/B 0.76 0.55 - 1.02 MG/DL 11/19/2017 10:44 AM [facility] SODIUM S/P/B 137 136 - 145 MMOL/L 11/19/2017 10:44 AM [facility] POTASSIUM S/P/B 3.8 3.5 - 5.1 MMOL/L 11/19/2017 10:44 AM [facility] CHLORIDE S/P/B 103 100 - 108 MMOL/L 11/19/2017 10:44 AM [facility] CO2 26.7 21 - 32 MMOL/L 11/19/2017 10:44 AM [facility] CALCIUM S/P/B 8.9 8.5 - 10.1 MG/DL 11/19/2017 10:44 AM [facility] ANION GAP 11.1 8 - 20 MMOL/L 11/19/2017 10:44 AM [facility] BUN CREATININE RATIO 13.2 6 - 26 11/19/2017 10:44 AM [facility] EGFR NON-AFR. AMER. >60 >60 ML/MIN/1.7 3 M2 11/19/2017 10:44 AM [facility] EGFR AFR. AMER. >60 >60 ML/MIN/1.7 3 M2 11/19/2017 10:44 AM [facility] Comment: NOTE: eGFR is not calculated for patients <18 years of age. This is an estimated GFR (CKD EPI) and should not be used for calculating drug doses. 11/19/2017 9:48 AM ARMOR OFFICER Asa Mcnamara MD LABORATORY Final Result [facility] [address] [place] [address], [place] [phone] documented in this encounter Visit Diagnoses Diagnosis Essential (primary) hypertension Unspecified essential hypertension Peripheral vascular disease (CMS/HCC) Peripheral vascular disease, unspecified Mixed hyperlipidemia documented in this encounter Care Teams Sustainability Communicator Relationship Specialty Start Date End Date Deisi Andrews MD [address] [place] [address] [place] [address] PCP - General FAMILY PRACTICE 06/15/17 10/14/19 Asa Mcnamara MD [facility] [address] [place] [address] [place] Leaf Binner CARDIOVASCULAR DISEASE 05/15/16 documented as of this encounter
--- OUTSIDE RECORDS SUMMARY | 2024-11-12 05:29 | XMS_ITS | Encounter Summary ---
Author Organization [facility] Address [address] [facility] [place], [place] [address] [place] [address] Care Team Providers Care Turn Down Worker Name Role Phone Asa Mcnamara MD Unavailable Deisi Andrews MD Primary Care Provider [phone] Reason for Referral * Imaging (Routine) - Closed Specialty Diagnoses / Procedures Referred By Contac t Referred To Contact CARDIOLOGY Diagnoses PVD (peripheral vascular disease) with claudication (CMS/HCC) Symptoms involving cardiovascular system Procedures USV AORTA ILIAC IVC DUPLEX COMP US AORTA DUPLEX COMP (13307) Asa Mcnamara MD Three [facility]. [address] [address] Phone: tel: fax: [facility] [place] [place] [address] Phone: tel: Referral ID Status Reason Start Date Expiration Date Visits Re quested Visits Authorized [id number] Closed 08/18/2017 12/20/2017 1 1 CCO PACKING 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 Reason for Visit * Imaging (Routine) - Closed Specialty Diagnoses / Procedures Referred By Contac t Referred To Contact CARDIOLOGY Diagnoses PVD (peripheral vascular disease) with claudication (CMS/HCC) Symptoms involving cardiovascular system Procedures USV ART REST W KENZIE LOW EXT USV ARTERIAL STRESS LOW EXT (15122) Asa Mcnamara MD Three [facility]. [address] [address] Phone: tel: fax: [facility] [place] [place] [address] Phone: tel: Referral ID Status Reason Start Date Expiration Date Visits Re quested Visits Authorized [id number] Closed 08/18/2017 12/20/2017 1 1 Encounter Details Date Type Department Care Team (Late st Contact Info) Description 11/19/2017 9:15 AM TOBACCO PACKING 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 - 11/19/2017 9:18 AM TOBACCO PACKING 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 Hospital Encounter [facility] [place], [place] [id number] Asa Mcnamara MD Three [facility]. [address] [id number] Discharge Disposition: Home or Self Care (Routine Discharge) Social History Tobacco Use Types Packs/Day Years Used Date Smoking Tobacco: Every Day Cigarettes Smokeless Tobacco: Never Comments:2 cig a day Alcohol Use Standard Drinks/Week Comments No 0 (1 standard drink = 0.6 oz pur e alcohol) Comments Unknown Sex and Gender Information Value Date Recorded Sex Assigned at Female 12/06/2019 3:36 PM TOBACCO PACKING 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 Legal Sex Female 5:20 PM CDT Gender Identity Female 12/06/2019 3:36 PM TOBACCO PACKING 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 Sexual Orientation Straight 12/06/2019 3: 36 PM TOBACCO PACKING 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 Occupation Industry Job Start Date [...] IVC DUPLEX COMP Routine 11/19/2017 11:15 AM TOBACCO PACKING 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 PVD (peripheral vascular disease) with claudication Symptoms involving cardiovascular system USV ART REST W KENZIE LOW EXT Routine 11/19/2017 11:06 AM TOBACCO PACKING 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 PVD (peripheral vascular disease) with claudication Symptoms involving cardiovascular system documented in this encounter Results * USV AORTA ILIAC IVC DUPLEX COMP (11/19/2017 11:15 AM TOBACCO PACKING 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) Anatomical Region Laterality Modality NA Vascular Ultraso und 11/19/2017 9:37 AM TOBACCO PACKING 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 Narrative 11/20/2017 1:54 PM TOBACCO PACKING 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 ?[id number] DUPLEX IMAGING ? VASCULAR LAB Pat.Name: ??RODY CRUZ ?Pat.ID: ?[id number] ? St.Date: ?? 11/19/2017 ?Exam Time: 9:37:00 [...] Procedure Note Caesar Aguayo MD - 11/20/2017 [id number] DUPLEX IMAGING VASCULAR LAB Pat.Name: RODY CRUZ Pat.ID: [id number] St.Date: 11/19/2017 Exam Time: 9:37:00 AM Study [...] W KENZIE LOW EXT (11/19/2017 11:06 AM TOBACCO PACKING 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) Anatomical Region Laterality Modality Extremity Vascular Ultraso und Narrative 11/20/2017 1:57 PM TOBACCO PACKING 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 ?ARTERIAL DOPPLER - KENZIE ?BILATERAL LOWER EXTREMITY ? VASCULAR LAB Pat.Name: ??RODY CRUZ ?Pat.ID: ?[id number] ? St.Date: ?? 11/19/2017 ?Exam Time: 3:08:00 PM ? Study Type:SCOTTIE VS Arterial Doppler Legs DILEEP ??Age: ??1960,56Y ? Sex: ? FEMALE ?Sonogrphr: Caesar Quinn, RVT ? Pat. Stat.:Outpatient ? History / [...] PM Caesar Aguayo M.D. Asa Mcnamara MD [facility] Edited Resul t - Final documented in this encounter Visit Diagnoses Diagnosis PVD (peripheral vascular disease) with claudication (CMS/HCC) Peripheral vascular disease, unspecified Symptoms involving cardiovascular system Other symptoms involving cardiovascular system documented in this encounter Care Teams Turn Down Worker Relationship Specialty Start Date End Date Deisi Andrews MD [address] [place] [address] [place] [address] PCP - General FAMILY PRACTICE 06/15/17 10/14/19 Asa Mcnamara MD [facility] [address] [place] [address] [place] Mass Spectrometry Specialist CARDIOVASCULAR DISEASE 05/15/16 documented as of this encounter
--- OUTSIDE RECORDS SUMMARY | 2024-11-12 05:29 | XMS_ITS | Encounter Summary ---
Author Organization [facility] Address [facility] [place], [place] [address] [place] [address] Care Team Providers Care Sheet Metal Roofer Name Role Phone Asa Mcnamara MD Unavailable [phone] Deisi Andrews MD Primary Care Provider [phone] Encounter Details Date Type Department Care Team (Latest Contact Info) Description 01/17/2018 [facility] Dane Sullivan, DO [address] [address] Social History Tobacco Use Types Packs/Day Years Used Date Smoking Tobacco: Every Day Cigarettes Smokeless Tobacco: Never Comments:1 pk day Alcohol Use Standard Drinks/Week Comments No 0 (1 standard drink = 0.6 oz pur e alcohol) Comments Unknown Sex and Gender Information Value Date Recorded Sex Assigned at Female 12/06/2019 3:36 PM APARTMENT RENTAL CLERK Legal Sex Female 5:20 PM CDT Gender Identity Female 12/06/2019 3:36 PM APARTMENT RENTAL CLERK Sexual Orientation Straight 12/06/2019 3: 36 PM APARTMENT RENTAL CLERK Occupation Industry Job Start Date Job End Date Not on file Not on file Not on file Not on file documented as of this encounter Plan of Treatment Not on file documented as of this encounter Visit Diagnoses Not on filedocumented in this encounter Care Teams Sheet Metal Roofer Relationship Specialty Start Date End Date Deisi Andrews MD [address] [place] [address] [place] [address] PCP - General FAMILY PRACTICE 06/15/17 10/14/19 Asa Mcnamara MD [facility] [address] [place] [address] [place] Mule Developer CARDIOVASCULAR DISEASE 05/15/16 documented as of this encounter
--- OUTSIDE RECORDS SUMMARY | 2024-11-12 05:29 | XMS_ITS | Encounter Summary ---
Author Organization [facility] Address [facility] [place] [address] [place] [address] Care Team Providers Care Fire Management Specialist Name Role Phone Asa Mcnamara MD Unavailable [phone] , Heber Trinidad MD Primary Care Provider Unavailable Reason for Visit * Reason Comments Peripheral Vascular Disease follow up te sting/ surgical clearance Hypertension Lipids Encounter Details Date Type Department Care Team (Late st Contact Info) Description 05/17/2017 11:45 AM CDT Office Visit [facility] AT [address] [address] Asa Mcnamara MD [address] [address] Peripheral Vascular Disease (follow up testing/ surgical clearance ); Hypertension; Lipids Social History Tobacco Use Types Packs/Day Years Used Date Smoking Tobacco: Every Day Cigarettes Smokeless Tobacco: Never Alcohol Use Standard Drinks/Week Comments No 0 (1 standard drink = 0.6 oz pur e alcohol) Comments Unknown Sex and Gender Information Value Date Recorded Sex Assigned at Female 12/06/2019 3:36 PM CLINICAL REVIEW SPECIALIST Legal Sex Female 5:20 PM CDT Gender Identity Female 12/06/2019 3:36 PM CLINICAL REVIEW SPECIALIST Sexual Orientation Straight 12/06/2019 3: 36 PM CLINICAL REVIEW SPECIALIST Occupation Industry Job Start Date Job [...] the original note were not included. Index [place]ian Related??topics Blood Pressure COPELAND POINTS ?? Blood [...] pressure at home between checkups. Developed by [employer]. Adult Advisor 2017.1 published by [employer]. Last modified: 2016-03-05 Last reviewed: 2016-02-28 This content is reviewed periodically and is subject to change as new health information becomes available. The information is intended to inform and educate and is not a replacement for medical evaluation, advice, diagnosis or treatment by a healthcare professional. References Adult Advisor 2017.1 Index Copyright ?? 2017 [employer], a division of [employer]. All rights reserved. documented in this encounter [...] the diuretic. She was subsequently admitted at [facility] and treated for pneumonia with [...] Haloperidol Seizure ??? Penicillins Redness ??? Resperal-Dm [Sge-Ie-Fal-Propyl Itofmg-Jfk-Eloruuryk] Seizure ??? Triazolam Seizure Past Medical History: [...] hypertension PVD (peripheral vascular disease) with claudication ([facility]) Peripheral vascular disease, unspecified Hyperlipidemia, mixed Mixed hyperlipidemia Lower leg edema Edema documented in this encounter Care Teams Fire Management Specialist Relationship Specialty Start Date End Date Heber Adorno MD PCP - General 03/11/17 06/14/17 Asa Mcnamara MD [address] [address] [place] Store Detective CARDIOVASCULAR DISEASE 05/15/16 documented as of this encounter
--- OUTSIDE RECORDS SUMMARY | 2024-11-12 05:29 | XMS_ITS | Encounter Summary ---
Author Organization [facility] Address [address] [facility] [place] [address] [place] [address] Care Team Providers Care Flying I Instructor Name Role Phone Asa Mcnamara MD Unavailable Heber Adorno MD Primary Care Provider Unavailable Reason for Visit * Reason Onset Date Comments Reschedule 03/16/2017 Encounter Details Date Type Department Care Team (Late st Contact Info) Description 03/16/2017 Telephone [employer] [address] [address] Asa Mcnamara MD [address] [address] Reschedule Social History Tobacco Use Types Packs/Day Years Used Date Smoking Tobacco: Every Day Cigarettes Smokeless Tobacco: Never Comments:3 cig a day Alcohol Use Standard Drinks/Week Comments No 0 (1 standard drink = 0.6 oz pur e alcohol) Comments Unknown Sex and Gender Information Value Date Recorded Sex Assigned at Female 12/06/2019 3:36 PM WEIGHER ALLOY Legal Sex Female 5:20 PM CDT Gender Identity Female 12/06/2019 3:36 PM WEIGHER ALLOY Sexual Orientation Straight 12/06/2019 3: 36 PM WEIGHER ALLOY Occupation Industry Job Start Date Job End [...] on filedocumented in this encounter Care Teams Flying I Instructor Relationship Specialty Start Date End Date Heber Adorno MD PCP - General 03/11/17 06/14/17 Asa Mcnamara MD [facility]. [facility] [address] [place] [address] [place] Auto Service Dispatcher CARDIOVASCULAR DISEASE 05/15/16 documented as of this encounter
--- OUTSIDE RECORDS SUMMARY | 2024-11-12 05:29 | XMS_ITS | Encounter Summary ---
Author Organization [facility] Address [facility] [place] [address] [place] [address] Care Team Providers Care Intervention Manager Name Role Phone Asa Mcnamara MD Unavailable [phone] , Heber Trinidad MD Primary Care Provider Unavailable Reason for Visit * Reason Onset Date Comments Medication Request 04/22/2017 new meds, fur osemide and potassium Encounter Details Date Type Department Care Team (Late st Contact Info) Description 04/22/2017 Telephone [email or web address] [facility] AT [address] [address] Asa Mcnamara MD [place] [address] [place] [address] Medication Request (new meds, furosemide and potassium) Social History Tobacco Use Types Packs/Day Years Used Date Smoking Tobacco: Every Day Cigarettes Smokeless Tobacco: Never Alcohol Use Standard Drinks/Week Comments No 0 (1 standard drink = 0.6 oz pur e alcohol) Comments Unknown Sex and Gender Information Value Date Recorded Sex Assigned at Female 12/06/2019 3:36 PM CEO & BOARD DIRECTOR Legal Sex Female 5:20 PM CDT Gender Identity Female 12/06/2019 3:36 PM CEO & BOARD DIRECTOR Sexual Orientation Straight 12/06/2019 3: 36 PM CEO & BOARD DIRECTOR Occupation Industry Job Start Date Job End Date Not on file Not on file Not on file Not on file documented as of this encounter Progress Notes * Layla Quiles CMA - 04/22/2017 5:[address] Mcnamara called and asked that we add furosemide 20mg 1 qam for seven days and potassium [id number] 1 qam, for seven days. He will write a rx for hydrocodone acetaminophen 5-325mg 1 qid for seven day, no refill. Furosemide and potassium chloride sent to pharmacy. ki documented in this encounter Plan of Treatment Not on file documented as of this encounter Visit Diagnoses Not on filedocumented in this encounter Care Teams Intervention Manager Relationship Specialty Start Date End Date Heber Adorno MD PCP - General 03/11/17 06/14/17 Asa Mcnamara MD [address] [address] [place] Architect Intern CARDIOVASCULAR DISEASE 05/15/16 documented as of this encounter
--- OUTSIDE RECORDS SUMMARY | 2024-11-12 05:29 | XMS_ITS | Encounter Summary ---
Author Organization [facility] Address [address] [facility] [place] [address] [place] [address] Care Team Providers Care Pbx Mechanic Name Role Phone Asa Mcnamara MD Unavailable Deisi Andrews MD Primary Care Provider [phone] Encounter Details Date Type Department Care Team (Late st Contact Info) Description 12/31/2017 9:06 AM SPANISH PROFESSOR - 12/31/2017 11:59 PM [facility] Hospital Encounter [facility] [place], [place] [id number] Asa Mcnamara MD Three [facility]. [facility] [address] [place], [place] [id number] Discharge Disposition: Home or Self Care (Routine Discharge) Social History Tobacco Use Types Packs/Day Years Used Date Smoking Tobacco: Every Day Cigarettes Smokeless Tobacco: Never Comments:2 cig a day Alcohol Use Standard Drinks/Week Comments No 0 (1 standard drink = 0.6 oz pur e alcohol) Comments Unknown Sex and Gender Information Value Date Recorded Sex Assigned at Female 12/06/2019 3:36 PM SPANISH PROFESSOR Legal Sex Female 5:20 PM CDT Gender Identity Female 12/06/2019 3:36 PM SPANISH PROFESSOR Sexual Orientation Straight 12/06/2019 3: 36 PM SPANISH PROFESSOR Occupation Industry Job Start Date Job End [...] tabletIndications :PVD (peripheral vascular disease) (CMS/[facility]) Take 1 tablet (75 mg total) [...] BASIC METABOLIC PANEL Routine 12/31/2017 9:23 AM SPANISH PROFESSOR Mixed hyperlipidemia LIPID PANEL Routine 12/31/2017 9:23 AM SPANISH PROFESSOR Mixed hyperlipidemia documented in this encounter Results * (ABNORMAL) LIPID PANEL (12/31/2017 9:23 AM SPANISH PROFESSOR) [facility] Signature CHOLESTEROL 177 <200 MG/DL 12/31/2017 10:18 AM SPANISH PROFESSOR [facility] TRIGLYCERIDES 305(H) <150 MG/DL 12/31/2017 10:18 AM [facility] HDL 35(L) >40.0 MG/DL 12/31/2017 10:18 AM [facility] LDL (CALCULATED) 81.0 <100 MG/L 12/31/19 18 10:18 AM [facility] NON HDL CHOLESTEROL 142(H) <130 MG/DL 12/31/2017 10:18 AM [facility] CHOL/HDL RATIO 5.1(H) 0.0 - 4.5 12/31/2017 10:18 AM [facility] VLDL CALCULATION 61(H) 5 - 55 MG/DL 12/31/2017 10:18 AM [facility] LIPID INTERPRETATION 12/31/2017 10:18 AM [facility] Comment: NIH CONCENSUS REPORT RECOMMENDATIONS: [...] ?LDL ? >=160 ?>=130 12/31/2017 9:23 AM SPANISH PROFESSOR us Asa Mcnamara MD LABORATORY Final Result [facility] [address] [place] [address], * (ABNORMAL) BASIC METABOLIC PANEL (12/31/2017 9:23 AM SPANISH PROFESSOR) GLUCOSE 129(H) 70 - 99 MG/DL 12/31/2017 10:18 AM [facility] BUN 13 7 - 18 MG/DL 12/31/2017 10:18 AM [facility] CREATININE S/P/B 0.80 0.55 - 1.02 MG/DL 12/31/2017 10:18 AM [facility] SODIUM S/P/B 139 136 - 145 MMOL/L 12/31/2017 10:18 AM [facility] POTASSIUM S/P/B 4.2 3.5 - 5.1 MMOL/L 12/31/2017 10:18 AM [facility] CHLORIDE S/P/B 106 100 - 108 MMOL/L 12/31/2017 10:18 AM [facility] CO2 27.1 21 - 32 MMOL/L 12/31/2017 10:18 AM [facility] CALCIUM S/P/B 8.7 8.5 - 10.1 MG/DL 12/31/2017 10:18 AM [facility] ANION GAP 10.1 8 - 20 MMOL/L 12/31/2017 10:18 AM [facility] BUN CREATININE RATIO 16.2 6 - 26 12/31/2017 10:18 AM [facility] EGFR NON-AFR. AMER. >60 >60 ML/MIN/1.7 3 M2 12/31/2017 10:18 AM [facility] EGFR AFR. AMER. >60 >60 ML/MIN/1.7 3 M2 12/31/2017 10:18 AM [facility] Comment: NOTE: eGFR is not calculated for patients <18 years of age. This is an estimated GFR (CKD EPI) and should not be used for calculating drug doses. 12/31/2017 9:23 AM SPANISH PROFESSOR Asa Mcnamara MD LABORATORY Final Result [facility] [address] [place] [address], documented in this encounter Visit Diagnoses Diagnosis Mixed hyperlipidemia documented in this encounter Care Teams Pbx Mechanic Relationship Specialty Start Date End Date Deisi Andrews MD [address] [place] [address] [place] [address] PCP - General FAMILY PRACTICE 06/15/17 10/14/19 Asa Mcnamara MD Three [facility]. [facility] [address] [place] [address] Stephen Usability Strategist CARDIOVASCULAR DISEASE 05/15/16 documented as of this encounter
--- OUTSIDE RECORDS SUMMARY | 2024-11-12 05:29 | XMS_ITS | Encounter Summary ---
Author Organization [facility] Address Critical access hospital[address] [facility] [place] [address] [place] [address] Care Team Providers Care Aircraft Systems Repairer Name Role Phone Asa Mcnamara MD Unavailable [phone] Deisi Andrews MD Primary Care Provider [phone] Encounter Details Date Type Department Care Team (Late st Contact Info) Description 08/17/2017 Orders Only [facility] AT [address] [address] Lm Acharya, A Social History Tobacco Use Types Packs/Day Years Used Date Smoking Tobacco: Every Day Cigarettes Smokeless Tobacco: Never Comments:2 cig a day Alcohol Use Standard Drinks/Week Comments No 0 (1 standard drink = 0.6 oz pur e alcohol) Comments Unknown Sex and Gender Information Value Date Recorded Sex Assigned at Female 12/06/2019 3:36 PM PLASTERER ROUGH Legal Sex Female 5:20 PM CDT Gender Identity Female 12/06/2019 3:36 PM PLASTERER ROUGH Sexual Orientation Straight 12/06/2019 3: 36 PM PLASTERER ROUGH Occupation Industry Job Start Date Job End Date Not on file Not on file Not on file Not on file documented as of this encounter Plan of Treatment Not on file documented as of this encounter Visit Diagnoses Not on filedocumented in this encounter Care Teams Aircraft Systems Repairer Relationship Specialty Start Date End Date Deisi Andrews MD [address] [place] [address] PCP - General FAMILY PRACTICE 06/15/17 10/14/19 Asa Mcnamara MD Three [facility]. [facility] [address] [place] [address] Stephen Direct Support Professional CARDIOVASCULAR DISEASE 05/15/16 documented as of this encounter
--- OUTSIDE RECORDS SUMMARY | 2024-11-12 05:29 | XMS_ITS | Encounter Summary ---
Author Organization [facility] Address [address] [facility] [place] [address] [place] [address] Care Team Providers Care Pharmacy Technician Assistant Name Role Phone Asa Mcnamara MD Unavailable [phone] Heber Adorno MD Primary Care Provider Unavailable Deisi Andrews MD Primary Care Provider [phone] Encounter Details Date Type Department Care Team (Late st Contact Info) Description 03/11/[address] [facility] [place] [place] [id number] Asa Mcnamara MD Three [facility]. [place] [address] [place], [place] [id number] Social History Tobacco Use Types Packs/Day Years Used Date Smoking Tobacco: Every Day Cigarettes Smokeless Tobacco: Never Comments:3 cig a day Alcohol Use Standard Drinks/Week Comments No 0 (1 standard drink = 0.6 oz pur e alcohol) Comments Unknown Sex and Gender Information Value Date Recorded Sex Assigned at Female 12/06/2019 3:36 PM IRRIGATION SUPERVISOR Legal Sex Female 5:20 PM CDT Gender Identity Female 12/06/2019 3:36 PM IRRIGATION SUPERVISOR Sexual Orientation Straight 12/06/2019 3: 36 PM IRRIGATION SUPERVISOR Occupation Industry Job Start Date Job End Date Not on file Not on file Not on file Not on file documented as of this encounter Plan of Treatment Not on file documented as of this encounter Visit Diagnoses Diagnosis Peripheral vascular disease (CMS/HCC) Peripheral vascular disease, unspecified documented in this encounter Care Teams Pharmacy Technician Assistant Relationship Specialty Start Date End Date Heber Adorno MD PCP - General 03/11/17 06/14/17 Deisi Andrews MD [address] [place] [address] PCP - General FAMILY PRACTICE 06/15/17 10/14/19 Asa Mcnamara MD [facility]. [facility] [address] [place] [address] Barnard Senior Electrical Designer CARDIOVASCULAR DISEASE 05/15/16 documented as of this encounter"
--- OUTSIDE RECORDS SUMMARY | 2024-11-12 05:29 | XMS_ITS | Encounter Summary ---
Author Organization [facility] Address [address] [facility] [address] [place] [address] Care Team Providers Care Power Electronics Research Engineer Name Role Phone Asa Mcnamara MD Unavailable [phone] Heber Adorno MD Primary Care Provider Unavailable Reason for Visit * Reason Onset Date Comments Surgical Clearance 05/12/2017 Encounter Details Date Type Department Care Team (Late st Contact Info) Description 05/12/2017 Telephone [facility] AT [address] [address] Asa Mcnamara MD [address] [address] Surgical Clearance Social History Tobacco Use Types Packs/Day Years Used Date Smoking Tobacco: Every Day Cigarettes Smokeless Tobacco: Never Alcohol Use Standard Drinks/Week Comments No 0 (1 standard drink = 0.6 oz pur e alcohol) Comments Unknown Sex and Gender Information Value Date Recorded Sex Assigned at Female 12/06/2019 3:36 PM LINT CLEANER Legal Sex Female 5:20 PM CDT Gender Identity Female 12/06/2019 3:36 PM LINT CLEANER Sexual Orientation Straight 12/06/2019 3: 36 PM LINT CLEANER Occupation Industry Job Start Date Job [...] on filedocumented in this encounter Care Teams Power Electronics Research Engineer Relationship Specialty Start Date End Date Heber Adorno MD PCP - General 03/11/17 06/14/17 Asa Mcnamara MD [address] [place] [address] Stephen Rn Bariatric CARDIOVASCULAR DISEASE 05/15/16 documented as of this encounter
--- OUTSIDE RECORDS SUMMARY | 2024-11-12 05:29 | XMS_ITS | Encounter Summary ---
Author Organization [facility] Address [facility] [place] [address] [place] [address] Care Team Providers Care Ramp Boss Name Role Phone Asa Mcnamara MD Unavailable [phone] Deisi Andrews MD Primary Care Provider [phone] Encounter Details Date Type Department Care Team (Late st Contact Info) Description 08/18/[address] [facility] [place], [place] [phone] Asa Mcnamara MD Three [facility]. [facility] [address] [place], [place] [id number] Social History Tobacco Use Types Packs/Day Years Used Date Smoking Tobacco: Every Day Cigarettes Smokeless Tobacco: Never Comments:2 cig a day Alcohol Use Standard Drinks/Week Comments No 0 (1 standard drink = 0.6 oz pur e alcohol) Comments Unknown Sex and Gender Information Value Date Recorded Sex Assigned at Female 12/06/2019 3:36 PM CV RN Legal Sex Female 5:20 PM CDT Gender Identity Female 12/06/2019 3:36 PM CV RN Sexual Orientation Straight 12/06/2019 3: 36 PM CV RN Occupation Industry Job Start Date Job End Date Not on file Not on file Not on file Not on file documented as of this encounter Plan of Treatment Not on file documented as of this encounter Visit Diagnoses Not on filedocumented in this encounter Care Teams Ramp Boss Relationship Specialty Start Date End Date Deisi Andrews MD [address] [place] [address] [place] [address] PCP - General FAMILY PRACTICE 06/15/17 10/14/19 Asa Mcnamara MD [facility] [address] [place] [address] [place] Tie In Hand CARDIOVASCULAR DISEASE 05/15/16 documented as of this encounter
--- OUTSIDE RECORDS SUMMARY | 2024-11-12 05:29 | XMS_ITS | Encounter Summary ---
Author Organization [facility] Address [address] [facility]. [place], [place] [address] [place] [address] Care Team Providers Care Base Filler Name Role Phone Asa Mcnamara MD Unavailable [phone] Deisi Andrews MD Primary Care Provider [phone] Reason for Referral * Procedure (Routine) - Closed Specialty Diagnoses / Procedures Referred By Nacho t Referred To Contact CARDIOLOGY Diagnoses PVD (peripheral vascular disease) with claudication ([facility]/HCC) Procedures XA DILEEP LEG ANGIOGRAM POSS Asa Mcnamara MD [facility]. [facility] [address] [place] [address] Phone: tel: fax: [place] [address] Phone: tel: Referral ID Status Reason Start Date Expiration Date Visits Re quested Visits Authorized [id number] Closed 11/25/2017 01/06/2018 1 1 INTAKE WORKER Reason for Visit * Reason Comments Peripheral Vascular Disease fu from test ing Encounter Details Date Type Department Care Team (Late st Contact Info) Description 11/25/2017 11:30 AM BULK INTAKE WORKER Office Visit [facility], [facility] [place] [address] [place] [address] Asa Mcnamara MD Three [facility]. [facility] [address] [place] [address] Peripheral Vascular Disease (fu from testing) Social History Tobacco Use Types Packs/Day Years Used Date Smoking Tobacco: Every Day Cigarettes Smokeless Tobacco: Never Comments:2 cig a day Alcohol Use Standard Drinks/Week Comments No 0 (1 standard drink = 0.6 oz pur e alcohol) Comments Unknown Sex and Gender Information Value Date Recorded Sex Assigned at Female 12/06/2019 3:36 PM BULK INTAKE WORKER Legal Sex Female 5:20 PM CDT Gender Identity Female 12/06/2019 3:36 PM BULK INTAKE WORKER Sexual Orientation Straight 12/06/2019 3: 36 PM BULK INTAKE WORKER Occupation Industry Job Start Date Job End Date Not on file Not on file Not on file Not on file documented as of this encounter Last Filed Vital Signs Vital Sign Reading Time Taken Comments Blood Pressure 108/70 11/25/2017 11:32 AM BULK INTAKE WORKER re taken by Pulse 80 11/25/2017 10:48 AM BULK INTAKE WORKER Temperature - - Respiratory Rate - - Oxygen Saturation 95% 11/25/2017 10:48 AM BULK INTAKE WORKER Inhaled Oxygen Concentration - - Weight 99.3 kg (219 lb) 11/25/2017 10:48 AM BULK INTAKE WORKER Height 160 cm (5' 3 ) 11/25/2017 10:48 AM BULK INTAKE WORKER Body Mass Index 38.79 11/25/2017 10:48 AM BULK INTAKE WORKER documented in this encounter Patient Instructions * Patient Instructions* Xin Montes - 11/25/2017 11:30 AM BULK INTAKE WORKER Images from the original note were not included. Peripheral Artery Disease and Claudication The Basics Written by the doctors and editors at [facility] What is peripheral artery disease???--??Peripheral artery disease [...] process is complete. This topic retrieved from [employer] on: Jun 01, 2017. Topic 07644 Version 6.0 Release: 25.3 - C25.159 ?2017??[employer].??All rights reserved. figure 1: Peripheral artery disease Graphic 86436 Version 6.0 Consumer Information Use and Disclaimer [...] that is right for you.The use of [employer] content is governed by the [employer] Terms of Use. ??2017 [employer]. All rights reserved. Copyright ?2017??[employer].??All rights reserved. INTAKE WORKER documented in this encounter Progress Notes * [...] Haloperidol Seizure ??? Penicillins Redness ??? Resperal-Dm [Tcu-Pm-Urc-Propyl [id number]-[id number]] Seizure ??? Triazolam Seizure Past Medical History: [...] Stenosis of right carotid artery 5. Hypertriglyceridemia INTAKE WORKER documented in this encounter Plan of Treatment Pending Results Name Type Priority Associated Diagnoses Date /Time XA DILEEP LEG ANGIOGRAM POSS Cardiac Cath Routine PVD (peripheral vascular disease) with claudication 12/06/2017 3:50 PM BULK INTAKE WORKER Scheduled Orders Name Type Priority Associated Diagnoses Orde r Schedule XA DILEEP LEG ANGIOGRAM POSS Cardiac Cath Routine PVD (peripheral vascular disease) with claudication Expected: 12/06/2017, Expires: 11/25/2018 documented as of this encounter Results * PROTHROMBIN TIME, VENOUS (12/01/2017 2:36 PM BULK INTAKE WORKER) PROTIME 11.6 9.6 - 12.2 SEC 12/01/2017 4:18 PM BULK INTAKE WORKER [facility] INR 1.1 12/01/2017 4:18 PM BULK INTAKE WORKER [facility] Comment: Recommended INR Therapeutic Goals: ??2.0-3.0 Routine Therapy ??2.5-3.5 Mechanical Prosthetic Valves (High Risk) ??3.0-4.0 Acute [place] (to prevent Systemic Embolism) The INR is used only for patients on stable oral anticoagulant therapy. It makes no significant contribution to the diagnosis or treatment of patients whose Protime is prolonged for other reasons. 12/01/2017 2:36 PM BULK INTAKE WORKER us Asa Mcnamara MD LABORATORY Final Result [facility] [address] [place] [address], * CBC W/DIFF AUTOMATED (12/01/2017 2:36 PM BULK INTAKE WORKER) [facility] WBC 8.4 4.8 - 10.8 x10'3/uL 12/01/2017 3:45 PM BULK INTAKE WORKER [facility] RBC 4.46 4.20 - 5.40 x10'6/uL 12/01/2017 3:45 PM BULK INTAKE WORKER [facility] HGB 12.7 12.0 - 16.0 G/DL 12/01/2017 3:45 PM [facility] HCT 38.2 38.0 - 48.0 % 12/01/2017 3:45 PM [facility] MCV 85.7 81.0 - 99.0 FL 12/01/2017 3:45 PM BULK INTAKE WORKER [facility] MCH 28.5 27.0 - 31.0 PG 12/01/2017 3:45 PM BULK INTAKE WORKER [facility] MCHC 33.2 32.0 - 36.0 G/DL 12/01/2017 3:45 PM BULK INTAKE WORKER [facility] RDW 13.5 11.5 - 14.5 % 12/01/2017 3:45 PM [facility] PLT 226 130 - 400 x10'3/uL 12/01/2017 3:45 PM [facility] MPV 10.2 9.3 - 12.2 FL 12/01/2017 3:45 PM BULK INTAKE WORKER [facility] NEUTROPHILS % 59.0 43.0 - 65.0 % 12/01/2017 3:45 PM BULK INTAKE WORKER [facility] LYMPHOCYTES % 29.9 20.0 - 46.0 % 12/01/2017 3:45 PM [facility] MONOCYTES % 7.4 5.0 - 12.0 % 12/01/2017 3:45 PM BULK INTAKE WORKER [facility] EOSINOPHILS 2.7 1.0 - 3.0 % 12/01/2017 3:45 PM BULK INTAKE WORKER [facility] BASOPHILS 0.5 0.0 - 1.0 % 12/01/2017 3:45 PM BULK INTAKE WORKER [facility] IMMATURE GRANS % 0.5 0.0 - 1.0 % 12/01/2017 3:45 PM BULK INTAKE WORKER [facility] 12/01/2017 2:36 PM BULK INTAKE WORKER us Asa Mcnamara MD LABORATORY Final Result [facility] [address] [place] [address], [place] [phone] * (ABNORMAL) BASIC METABOLIC PANEL (12/01/2017 2:36 PM BULK INTAKE WORKER) GLUCOSE 153(H) 70 - 99 MG/DL 12/01/2017 3:57 PM [facility] BUN 10 7 - 18 MG/DL 12/01/2017 3:57 PM [facility] CREATININE S/P/B 0.81 0.55 - 1.02 MG/DL 12/01/2017 3:57 PM [facility] SODIUM S/P/B 141 136 - 145 MMOL/L 12/01/2017 3:57 PM [facility] POTASSIUM S/P/B 3.2(L) 3.5 - 5.1 MMOL/L 12/01/2017 3:57 PM BULK INTAKE WORKER [facility] CHLORIDE S/P/B 106 100 - 108 MMOL/L 12/01/2017 3:57 PM [facility] CO2 26.6 21 - 32 MMOL/L 12/01/2017 3:57 PM BULK INTAKE WORKER [facility] CALCIUM S/P/B 8.5 8.5 - 10.1 MG/DL 12/01/2017 3:57 PM BULK INTAKE WORKER [facility] ANION GAP 11.6 8 - 20 MMOL/L 12/01/2017 3:57 PM BULK INTAKE WORKER [facility] BUN CREATININE RATIO 12.3 6 - 26 12/01/2017 3:57 PM BULK INTAKE WORKER [facility] EGFR NON-AFR. AMER. >60 >60 ML/MIN/1.7 3 M2 12/01/2017 3:57 PM BULK INTAKE WORKER [facility] EGFR AFR. AMER. >60 >60 ML/MIN/1.7 3 M2 12/01/2017 3:57 PM [facility] Comment: NOTE: eGFR is not calculated for patients <18 years of age. This is an estimated GFR (CKD EPI) and should not be used for calculating drug doses. 12/01/2017 2:36 PM BULK INTAKE WORKER Asa Mcnamara MD LABORATORY Final Result [facility] [address] [place] [address], documented in this encounter Visit Diagnoses Diagnosis PVD (peripheral vascular disease) with claudication ([facility])- Primary Peripheral vascular disease, unspecified Essential (primary) hypertension Unspecified essential hypertension Hyperlipidemia, mixed Mixed hyperlipidemia Stenosis of right carotid artery Occlusion and stenosis of carotid artery without mention of cerebral infarction Hypertriglyceridemia Pure hyperglyceridemia documented in this encounter Care Teams Base Filler Relationship Specialty Start Date End Date Deisi Andrews MD [address] [place] [address] [place] [address] PCP - General FAMILY PRACTICE 06/15/17 10/14/19 Asa Mcnamara MD [address] [address] Stephen Game Room Attendant CARDIOVASCULAR DISEASE 05/15/16 documented as of this encounter
--- OUTSIDE RECORDS SUMMARY | 2024-11-12 05:29 | XMS_ITS | Encounter Summary ---
Author Organization [facility] Address [address] [facility] [place] [address] [place] [address] Care Team Providers Care Auto Winder Name Role Phone Asa Mcnamara MD Unavailable [phone] , Heber Trinidad MD Primary Care Provider Unavailable Encounter Details Date Type Department Care Team (Late st Contact Info) Description 04/22/2017 Orders Only [facility] AT [address] [id number] Asa Mcnamara MD [address] [id number] Social History Tobacco Use Types Packs/Day Years Used Date Smoking Tobacco: Every Day Cigarettes Smokeless Tobacco: Never Alcohol Use Standard Drinks/Week Comments No 0 (1 standard drink = 0.6 oz pur e alcohol) Comments Unknown Sex and Gender Information Value Date Recorded Sex Assigned at Female 12/06/2019 3:36 PM WILLOW 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 Legal Sex Female 5:20 PM CDT Gender Identity Female 12/06/2019 3:36 PM WILLOW 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 Sexual Orientation Straight 12/06/2019 3: 36 PM WILLOW 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 Occupation Industry Job Start Date [...] GLUCOSE POC 180(H) 70 - 99 mg/dL [facility] 04/22/2017 9:51 AM CDT 04/22/2017 9:09 PM CDT us Asa Mcnamara MD LABORATORY Final Result [facility] [address] [place] [address], documented in this encounter Visit Diagnoses Not on filedocumented in this encounter Care Teams Auto Winder Relationship Specialty Start Date End Date Heber Adorno MD PCP - General 03/11/17 06/14/17 Asa Mcnamara MD [facility]. [facility] [address] [place] [address] Centralia Shoer CARDIOVASCULAR DISEASE 05/15/16 documented as of this encounter
--- OUTSIDE RECORDS SUMMARY | 2024-11-12 05:29 | XMS_ITS | Encounter Summary ---
Author Organization [facility] Address [address] [facility] [place] [address] [place] [address] Care Team Providers Care Bridge Worker Apprentice Name Role Phone Asa Mcnamara MD Unavailable Heber Adorno MD Primary Care Provider Unavailable Reason for Visit * Reason Onset Date Comments Returned Call 06/01/2017 Encounter Details Date Type Department Care Team (Late st Contact Info) Description 06/01/2017 Telephone [id number] AT [address] [address] Asa Mcnamara MD [address] [address] Returned Call Social History Tobacco Use Types Packs/Day Years Used Date Smoking Tobacco: Every Day Cigarettes Smokeless Tobacco: Never Alcohol Use Standard Drinks/Week Comments No 0 (1 standard drink = 0.6 oz pur e alcohol) Comments Unknown Sex and Gender Information Value Date Recorded Sex Assigned at Female 12/06/2019 3:36 PM DYNAMIC BALANCER Legal Sex Female 5:20 PM CDT Gender Identity Female 12/06/2019 3:36 PM DYNAMIC BALANCER Sexual Orientation Straight 12/06/2019 3: 36 PM DYNAMIC BALANCER Occupation Industry Job Start Date Job End Date Not on file Not on file Not on file Not on file documented as of this encounter Progress Notes * Porsha David - 06/01/2017 11:20 AM CDT Received VM message stating she was returning a call from the hospital number. Message sent to ADONAY Gallegos to return call to [phone] or [phone]. documented in this encounter Plan of Treatment Not on file documented as of this encounter Visit Diagnoses Not on filedocumented in this encounter Care Teams Bridge Worker Apprentice Relationship Specialty Start Date End Date Heber Adorno MD PCP - General 03/11/17 06/14/17 Asa Mcnamara MD [id number] [place] [address] Cocoa Gang Rider CARDIOVASCULAR DISEASE 05/15/16 documented as of this encounter
--- OUTSIDE RECORDS SUMMARY | 2024-11-12 05:29 | XMS_ITS | Encounter Summary ---
Author Organization [facility] Address [address] [facility] [place] [address] [place] [address] Care Team Providers Care Deputy Coroner Name Role Phone Asa Mcnamara MD Unavailable [phone] , Heber Trinidad MD Primary Care Provider Unavailable Encounter Details Date Type Department Care Team (Late st Contact Info) Description 04/21/2017 Orders Only [facility] [place] [address] [place], [place] [id number] Asa Mncamara MD [address] [id number] Social History Tobacco Use Types Packs/Day Years Used Date Smoking Tobacco: Every Day Cigarettes Smokeless Tobacco: Never Alcohol Use Standard Drinks/Week Comments No 0 (1 standard drink = 0.6 oz pur e alcohol) Comments Unknown Sex and Gender Information Value Date Recorded Sex Assigned at Female 12/06/2019 3:36 PM MATERIAL CREW SUPERVISOR Legal Sex Female 5:20 PM CDT Gender Identity Female 12/06/2019 3:36 PM MATERIAL CREW SUPERVISOR Sexual Orientation Straight 12/06/2019 3: 36 PM MATERIAL CREW SUPERVISOR Occupation Industry Job Start Date Job End Date Not on file Not on file Not on file Not on file documented as of this encounter Plan of Treatment Not on file documented as of this encounter Visit Diagnoses Diagnosis PVD (peripheral vascular disease) (CMS/HCC)- Primary Peripheral vascular disease, unspecified documented in this encounter Care Teams Deputy Coroner Relationship Specialty Start Date End Date , Generic Conversion, PCP - General 03/11/17 06/14/17 Asa Mcnamara MD [facility]. [facility] [address] [place] [address] [place] Host/Hostess Head CARDIOVASCULAR DISEASE 05/15/16 documented as of this encounter
--- OUTSIDE RECORDS SUMMARY | 2024-11-12 05:29 | XMS_ITS | Encounter Summary ---
Author Organization [facility] Address [address] [facility] [place] [address] [place] [address] Care Team Providers Care Container Filler Name Role Phone Asa Mcnamara MD Unavailable [phone] , Heber Trinidad MD Primary Care Provider Unavailable Encounter Details Date Type Department Care Team (Late st Contact Info) Description 03/11/2017 Orders Only [facility] AT [place] [address] [place] [address] Asa Mcnamara MD [address] [address] Social History Tobacco Use Types Packs/Day Years Used Date Smoking Tobacco: Every Day Cigarettes Smokeless Tobacco: Never Comments:3 cig a day Alcohol Use Standard Drinks/Week Comments No 0 (1 standard drink = 0.6 oz pur e alcohol) Comments Unknown Sex and Gender Information Value Date Recorded Sex Assigned at Female 12/06/2019 3:36 PM GLASSINE MACHINE TENDER Legal Sex Female 5:20 PM CDT Gender Identity Female 12/06/2019 3:36 PM GLASSINE MACHINE TENDER Sexual Orientation Straight 12/06/2019 3: 36 PM GLASSINE MACHINE TENDER Occupation Industry Job Start Date Job End [...] AM CDT Narrative 03/11/2017 12:00 AM CDT ?[id number] DUPLEX IMAGING ? VASCULAR LAB Pat.Name: ??RODY CRUZ ? Pat.ID: ?[id number] ? St.Date: ?? 03/11/2017 ? Exam Time: [...] Procedure Note Caesar Aguayo MD - 03/12/2017 [id number] DUPLEX IMAGING VASCULAR LAB Pat.Name: RODY CRUZ Pat.ID: [id number] St.Date: 03/11/2017 Exam Time: 9:36:00 AM Study [...] on filedocumented in this encounter Care Teams Container Filler Relationship Specialty Start Date End Date Heber Adorno MD PCP - General 03/11/17 06/14/17 Asa Mcnamara MD [facility]. [facility] [address] [place] [address] [place] Money Manager CARDIOVASCULAR DISEASE 05/15/16 documented as of this encounter
--- OUTSIDE RECORDS SUMMARY | 2024-11-12 05:29 | XMS_ITS | Encounter Summary ---
Author Organization [facility] Address [address] [facility] [place] [address] [place] [address] Care Team Providers Care Tobacco Weigher Name Role Phone Asa Mcnamara MD Unavailable [phone] , Heber Trinidad MD Primary Care Provider Unavailable Encounter Details Date Type Department Care Team (Late st Contact Info) Description 04/23/2017 Orders Only [facility] [place] [address] [place], [place] [id number] Aas Mcnamara MD [address] [id number] Social History Tobacco Use Types Packs/Day Years Used Date Smoking Tobacco: Every Day Cigarettes Smokeless Tobacco: Never Alcohol Use Standard Drinks/Week Comments No 0 (1 standard drink = 0.6 oz pur e alcohol) Comments Unknown Sex and Gender Information Value Date Recorded Sex Assigned at Female 12/06/2019 3:36 PM FORK ASSEMBLER Legal Sex Female 5:20 PM CDT Gender Identity Female 12/06/2019 3:36 PM FORK ASSEMBLER Sexual Orientation Straight 12/06/2019 3: 36 PM FORK ASSEMBLER Occupation Industry Job Start Date Job [...] Primary documented in this encounter Care Teams Tobacco Weigher Relationship Specialty Start Date End Date Heber Adorno MD PCP - General 03/11/17 06/14/17 Asa Mcnamara MD [facility]. [facility] [address] [place] [address] [place] Man CARDIOVASCULAR DISEASE 05/15/16 documented as of this encounter
--- OUTSIDE RECORDS SUMMARY | 2024-11-12 05:29 | XMS_ITS | Encounter Summary ---
Author Organization [facility] Address [facility] [place] [address] [place] [address] Care Team Providers Care Outpatient Receptionist Name Role Phone Asa Mcnamara MD Unavailable [phone] Deisi Andrews MD Primary Care Provider [phone] Reason for Visit * Reason Onset Date Comments Other 12/09/2017 d/c call back Encounter Details Date Type Department Care Team (Late st Contact Info) Description 12/09/2017 Telephone [facility] Med/Surg 3rd Floor [place], [place] [id number] Deisi Andrews MD [address] [place] [address] Other (d/c call back) Social History Tobacco Use Types Packs/Day Years Used Date Smoking Tobacco: Every Day Cigarettes Smokeless Tobacco: Never Comments:2 cig a day Alcohol Use Standard Drinks/Week Comments No 0 (1 standard drink = 0.6 oz pur e alcohol) Comments Unknown Sex and Gender Information Value Date Recorded Sex Assigned at Female 12/06/2019 3:36 PM AGRICULTURE MANAGER Legal Sex Female 5:20 PM CDT Gender Identity Female 12/06/2019 3:36 PM AGRICULTURE MANAGER Sexual Orientation Straight 12/06/2019 3: 36 PM AGRICULTURE MANAGER Occupation Industry Job Start Date Job End Date Not on file Not on file Not on file Not on file documented as of this encounter Plan of Treatment Not on file documented as of this encounter Visit Diagnoses Not on filedocumented in this encounter Care Teams Outpatient Receptionist Relationship Specialty Start Date End Date Deisi Andrews MD [address] [place] [address] [place] [address] PCP - General FAMILY PRACTICE 06/15/17 10/14/[address] [facility]. [facility] [address] [place] [address] [place] Plant Mechanic CARDIOVASCULAR DISEASE 05/15/16 documented as of this encounter
--- OUTSIDE RECORDS SUMMARY | 2024-11-12 05:29 | XMS_ITS | Encounter Summary ---
Author Organization [facility] Address [address] [facility] [place] [address] [place] [address] Care Team Providers Care Gastroenterologist Name Role Phone Asa Mcnamara MD Unavailable [phone] Heber Adorno MD Primary Care Provider Unavailable Encounter Details Date Type Department Care Team (Late st Contact Info) Description 04/22/2017 Orders Only [facility] AT [address] [address] [place], [facility] Social History Tobacco Use Types Packs/Day Years Used Date Smoking Tobacco: Every Day Cigarettes Smokeless Tobacco: Never Alcohol Use Standard Drinks/Week Comments No 0 (1 standard drink = 0.6 oz pur e alcohol) Comments Unknown Sex and Gender Information Value Date Recorded Sex Assigned at Female 12/06/2019 3:36 PM CAN INTAKE WORKER Legal Sex Female 5:20 PM CDT Gender Identity Female 12/06/2019 3:36 PM CAN INTAKE WORKER Sexual Orientation Straight 12/06/2019 3: 36 PM CAN INTAKE WORKER Occupation Industry Job Start Date Job End Date Not on file Not on file Not on file Not on file documented as of this encounter Plan of Treatment Not on file documented as of this encounter Visit Diagnoses Not on filedocumented in this encounter Care Teams Gastroenterologist Relationship Specialty Start Date End Date Heber Adorno MD PCP - General 03/11/17 06/14/17 Asa Mcnamara MD [facility] [address] [place] [address] [place] Teacher Of The Deaf/Hard Of Hearing CARDIOVASCULAR DISEASE 05/15/16 documented as of this encounter
--- OUTSIDE RECORDS SUMMARY | 2024-11-12 05:29 | XMS_ITS | Encounter Summary ---
Author Organization [facility] Address [facility] [place], [place] [address] [place] [address] Care Team Providers Care Shoveler Name Role Phone Asa Mcnamara MD Unavailable [phone] Deisi Andrews MD Primary Care Provider [phone] Encounter Details Date Type Department Care Team (Late st Contact Info) Description 06/23/2017 Abstract [place] [address] Asa Mcnamara MD Three [facility]. [facility] [address] [place] [address] Social History Tobacco Use Types Packs/Day Years Used Date Smoking Tobacco: Every Day Cigarettes Smokeless Tobacco: Never Comments:2 cig a day Alcohol Use Standard Drinks/Week Comments No 0 (1 standard drink = 0.6 oz pur e alcohol) Comments Unknown Sex and Gender Information Value Date Recorded Sex Assigned at Female 12/06/2019 3:36 PM LAWN MAINTENANCE WORKER Legal Sex Female 5:20 PM CDT Gender Identity Female 12/06/2019 3:36 PM LAWN MAINTENANCE WORKER Sexual Orientation Straight 12/06/2019 3: 36 PM LAWN MAINTENANCE WORKER Occupation Industry Job Start Date Job [...] - 99 mg/dL 06/23/2017 2:38 PM CDT [facility] BUN 12 8 - 23 mg/dL 06/23/2017 2:38 PM CDT [facility] CREATININE S/P/B 0.68 0.60 - 1.10 mg/dL 06/23/2017 2:38 PM CDT [facility] SODIUM S/P/B 143 136 - 145 mmol/L 06/23/2017 2:38 PM CDT [facility] POTASSIUM S/P/B 3.4(L) 3.5 - 5.1 mmol/L 06/23/2017 2:38 PM CDT [facility] CHLORIDE S/P/B 100 98 - 107 mmol/L 06/23/2017 2:38 PM CDT [facility] CO2 28 22 - 29 mmol/L 06/23/2017 2:38 PM CDT [facility] CALCIUM S/P/B 9.2 8.6 - 10.2 mg/dL 06/23/2017 2:38 PM CDT [facility] ANION GAP 18 8 - 20 06/23/2017 2:38 PM CDT [facility] EGFR NON-AFR. AMER. >60 >60 mL/min/1.7 3m'2 06/23/2017 2:38 PM CDT [facility] EGFR AFR. AMER. >60 >60 mL/min/1.7 3m'2 06/23/2017 2:38 PM CDT [facility] Comment: NOTE: eGFR is not calculated for patients <18 years of age. This is an estimated GFR (CKD EPI) and should not be used for calculating drug doses. 06/23/2017 1:55 PM CDT 06/23/2017 2:04 PM CDT us Generic Conversion Md [facility] Final R esult Performing Organization Address City/State/[facility] Co de Phone Number [facility] [address] [place] [address], documented in this encounter Visit Diagnoses Diagnosis Essential (primary) hypertension Unspecified essential hypertension documented in this encounter Care Teams Shoveler Relationship Specialty Start Date End Date Deisi Andrews MD [address] [place] [address] [place] [address] PCP - General FAMILY PRACTICE 06/15/17 10/14/19 Asa Mcnamara MD [facility]. [facility] [address] [place] [address] [place] Twill Cutter CARDIOVASCULAR DISEASE 05/15/16 documented as of this encounter
--- OUTSIDE RECORDS SUMMARY | 2024-11-12 05:29 | XMS_ITS | Encounter Summary ---
Author Organization [facility] Address [address] [facility]. [place], [place] [address] [place] [address] Care Team Providers Care Playground Director Name Role Phone Asa Mcnamara MD Unavailable [phone] Deisi Andrews MD Primary Care Provider [phone] Encounter Details Date Type Department Care Team (Late st Contact Info) Description 06/27/2018 7:50 AM CDT - 06/27/2018 7:56 AM CDT Hospital Encounter [facility] [address] [place], [place] [phone] Asa Mcnamara MD Three [facility]. [facility] [address] [place], [place] [phone] Discharge Disposition: Home or Self Care (Routine Discharge) Social History Tobacco Use Types Packs/Day Years Used Date Smoking Tobacco: Every Day Cigarettes Smokeless Tobacco: Never Comments:1 pk day Alcohol Use Standard Drinks/Week Comments No 0 (1 standard drink = 0.6 oz pur e alcohol) Comments Unknown Sex and Gender Information Value Date Recorded Sex Assigned at Female 12/06/2019 3:36 PM HOT WORT SETTLER Legal Sex Female 5:20 PM CDT Gender Identity Female 12/06/2019 3:36 PM HOT WORT SETTLER Sexual Orientation Straight 12/06/2019 3: 36 PM HOT WORT SETTLER Occupation Industry Job Start Date Job End [...] 75 MG tabletIndications :PVD (peripheral vascular disease) (CMS/[facility]) Take 1 tablet (75 mg total) by [...] 132(H) <100 MG/DL 06/27/2018 10:13 AM CDT [facility] 06/27/2018 8:03 AM CDT Asa Mcnamara MD LABORATORY Final Result [facility] [address] [place] [address], [place] [phone] * (ABNORMAL) LIPID PANEL (06/27/2018 8:03 AM CDT) CHOLESTEROL 221(H) <200 MG/DL 06/27/2018 9:23 AM CDT [facility] TRIGLYCERIDES 548(H) <150 MG/DL 06/27/2018 9:23 AM CDT [facility] Comment:REFLEXED DIRECT LDL DUE TO TRIG >400. HDL 30(L) >40.0 MG/DL 06/27/2018 9:23 AM CDT [facility] LDL (CALCULATED) NOT CALCULATED <100 MG/DL 06/27/2018 9:23 AM T [facility] Comment:TRIGLYCERIDE >400 IN VALIDATES FRACTIONATION. NON HDL CHOLESTEROL 191(H) <130 MG/DL 06/27/2018 9:23 AM CDT [facility] CHOL/HDL RATIO 7.4(H) 0.0 - 4.5 06/27/2018 9:23 AM T [facility] VLDL CALCULATION NOT CALCULATED 5 - 55 MG/DL 06/27/2018 9:23 AM T [facility] Comment:TRIGLYCERIDE >400 IN VALIDATES FRACTIONATION. LIPID INTERPRETATION 06/27/2018 9:23 AM CDT [facility] Comment: NIH CONCENSUS REPORT RECOMMENDATIONS: [...] us Asa Mcnamara MD LABORATORY Final Result [facility] [address] [place] [address], documented in this encounter Visit Diagnoses Diagnosis Symptoms involving cardiovascular system Other symptoms involving cardiovascular system PVD (peripheral vascular disease) (CMS/HCC) Peripheral vascular disease, unspecified Essential hypertension Unspecified essential hypertension Mixed hyperlipidemia documented in this encounter Care Teams Playground Director Relationship Specialty Start Date End Date Deisi Andrews MD [address] [place] [address] [place] [address] PCP - General FAMILY PRACTICE 06/15/17 10/14/19 Asa Mcnamara MD Three [facility]. [facility] [address] [place] [address] [place] Rig Site Engineer CARDIOVASCULAR DISEASE 05/15/16 documented as of this encounter
--- OUTSIDE RECORDS SUMMARY | 2024-11-12 05:29 | XMS_ITS | Encounter Summary ---
Author Organization [facility] Address [facility]. [place], [place] [address] [place] [address] Care Team Providers Care Jewel Sawyer Name Role Phone Asa Mcnamara MD Unavailable [phone] Deisi Andrews MD Primary Care Provider [phone] Reason for Visit * Reason Onset Date Comments Lab Results 12/02/2017 Encounter Details Date Type Department Care Team (Late st Contact Info) Description 12/02/2017 Telephone [facility] at [place] [phone] Karen Barboza driver trainer Results Social History Tobacco Use Types Packs/Day Years Used Date Smoking Tobacco: Every Day Cigarettes Smokeless Tobacco: Never Comments:2 cig a day Alcohol Use Standard Drinks/Week Comments No 0 (1 standard drink = 0.6 oz pur e alcohol) Comments Unknown Sex and Gender Information Value Date Recorded Sex Assigned at Female 12/06/2019 3:36 PM PHARMACY TECHNICIAN PROGRAM DIRECTOR Legal Sex Female 5:20 PM CDT Gender Identity Female 12/06/2019 3:36 PM PHARMACY TECHNICIAN PROGRAM DIRECTOR Sexual Orientation Straight 12/06/2019 3: 36 PM PHARMACY TECHNICIAN PROGRAM DIRECTOR Occupation Industry Job Start Date Job [...] daily, no further orders. Rosy Barboza R.N. MACY TECHNICIAN PROGRAM DIRECTOR MACY TECHNICIAN PROGRAM DIRECTOR documented in this encounter Plan of Treatment Not on file documented as of this encounter Visit Diagnoses Not on filedocumented in this encounter Care Teams Jewel Sawyer Relationship Specialty Start Date End Date Deisi Andrews MD [address] [place] [address] [place] [address] PCP - General FAMILY PRACTICE 06/15/17 10/14/[address] [facility] [address] [place] [address] [place] Cold Roll Packer Sheet Iron CARDIOVASCULAR DISEASE 05/15/16 documented as of this encounter
--- OUTSIDE RECORDS SUMMARY | 2024-11-12 05:29 | XMS_ITS | Encounter Summary ---
Author Organization [facility] Address [address] [facility]. [place], [place] [address] [place] [address] Care Team Providers Care Superior Court Clerk Name Role Phone Asa Mcnamara MD Unavailable [phone] Heber Adorno MD Primary Care Provider Unavailable Deisi Andrews MD Primary Care Provider [phone] Neva Holden MD Primary Care Provider [phone] Deisi Andrews MD Primary Care Provider [phone] Neva Holden MD Primary Care Provider [phone] Encounter Details Date Type Department Care Team (Late st Contact Info) Description 04/30/2017 Abstract [facility] AT [address] [address] Rafael Thakur MA Social History Tobacco Use Types Packs/Day Years Used Date Smoking Tobacco: Every Day Cigarettes Smokeless Tobacco: Never Alcohol Use Standard Drinks/Week Comments No 0 (1 standard drink = 0.6 oz pur e alcohol) Comments Unknown Sex and Gender Information Value Date Recorded Sex Assigned at Female 12/06/2019 3:36 PM RODENT EXTERMINATOR Legal Sex Female 5:20 PM CDT Gender Identity Female 12/06/2019 3:36 PM RODENT EXTERMINATOR Sexual Orientation Straight 12/06/2019 3: 36 PM RODENT EXTERMINATOR Occupation Industry Job Start Date Job End [...] on filedocumented in this encounter Care Teams Superior Court Clerk Relationship Specialty Start Date End Date Heber Adorno MD PCP - General 03/11/17 06/14/17 Deisi Andrews MD [address] [place] [address] PCP - General FAMILY PRACTICE 06/15/17 10/14/19 Neva Holden MD [facility] [address] [place] [address] PCP - [facility] FAMILY PRACTICE 10/15/19 12/05/19 Deisi Andrews MD [address] [place] [address] PCP - [facility] FAMILY PRACTICE 12/06/19 02/13/20 Neva Holden MD . [facility] [address] [place] [address] PCP - [facility] PRACTICE 02/14/20 Asa Mcnamara MD [facility] [address] [place] [address] [place] Sheep Farmer CARDIOVASCULAR DISEASE 05/15/16 documented as of this encounter
--- OUTSIDE RECORDS SUMMARY | 2024-11-12 05:29 | XMS_ITS | Encounter Summary ---
Author Organization [facility] Address [facility]. [place], [place] [address] [place] [address] Care Team Providers Care Dial Equipment Engineer Name Role Phone Asa Mcnamara MD Unavailable [phone] Deisi Andrews MD Primary Care Provider [phone] Encounter Details Date Type Department Care Team (Late st Contact Info) Description 01/05/2018 Orders Only [facility] at [address] [address] Marilu Quinn, A Social History Tobacco Use Types Packs/Day Years Used Date Smoking Tobacco: Every Day Cigarettes Smokeless Tobacco: Never Comments:1 pk day Alcohol Use Standard Drinks/Week Comments No 0 (1 standard drink = 0.6 oz pur e alcohol) Comments Unknown Sex and Gender Information Value Date Recorded Sex Assigned at Female 12/06/2019 3:36 PM RECENTERER Legal Sex Female 5:20 PM CDT Gender Identity Female 12/06/2019 3:36 PM RECENTERER Sexual Orientation Straight 12/06/2019 3: 36 PM RECENTERER Occupation Industry Job Start Date Job End Date Not on file Not on file Not on file Not on file documented as of this encounter Plan of Treatment Not on file documented as of this encounter Visit Diagnoses Not on filedocumented in this encounter Care Teams Dial Equipment Engineer Relationship Specialty Start Date End Date Deisi Andrews MD [address] [place] [address] [place] [address] PCP - General FAMILY PRACTICE 06/15/17 10/14/19 Asa Mcnamara MD [facility]. [facility] [address] [place] [address] [place] Dispatch Supervisor CARDIOVASCULAR DISEASE 05/15/16 documented as of this encounter
--- OUTSIDE RECORDS SUMMARY | 2024-11-12 05:29 | XMS_ITS | Encounter Summary ---
Author Organization [facility] Address [address] [facility] [place] [address] [place] [address] Care Team Providers Care Windlace Machine Operator Name Role Phone Asa Mcnamara MD Unavailable [phone] , Heber Trinidad MD Primary Care Provider Unavailable Reason for Referral * Diagnostic Lab (Routine) - Closed Specialty Diagnoses / Procedures Referred By Contsamra t Referred To Contact CARDIOLOGY Diagnoses Palpitations Procedures HOLTER MONITOR 48 HR REC (42266) Asa Mcnamara MD [address] [address] Phone: tel: fax: [facility] [address] [place] [address] Phone: tel: fax: Referral ID Status Reason Start Date Expiration Date Visits Re quested Visits Authorized [id number] Closed 06/07/2017 07/15/2017 1 1 Reason for Visit * Reason Comments Peripheral Vascular Disease 4 wk follow up Edema Encounter Details Date Type Department Care Team ([facility] Contact Info) Description 06/07/2017 11:00 AM CDT Office Visit [facility] [address] [place] [address] Asa Mcnamara MD [facility]. [address] [id number] Peripheral Vascular Disease (4 wk follow up); Edema Social History Tobacco Use Types Packs/Day Years Used Date Smoking Tobacco: Every Day Cigarettes Smokeless Tobacco: Never Comments:2 cig a day Alcohol Use Standard Drinks/Week Comments No 0 (1 standard drink = 0.6 oz pur e alcohol) Comments Unknown Sex and Gender Information Value Date Recorded Sex Assigned at Female 12/06/2019 3:36 PM COLOR PASTE MIXING SUPERVISOR Legal Sex Female 5:20 PM CDT Gender Identity Female 12/06/2019 3:36 PM COLOR PASTE MIXING SUPERVISOR Sexual Orientation Straight 12/06/2019 3: 36 PM COLOR PASTE MIXING SUPERVISOR Occupation Industry Job Start Date Job [...] the original note were not included. Index Hungarian All??languages Related??topics High Blood Pressure: Essential Hypertension [...] risk for high blood pressure. Developed by [employer]. Adult Advisor 2017.1 published by [employer]. Last modified: 2016-03-02 Last reviewed: 2016-02-28 This content is reviewed periodically and is subject to change as new health information becomes available. The information is intended to inform and educate and is not a replacement for medical evaluation, advice, diagnosis or treatment by a healthcare professional. References Adult Advisor 2017.1 Index Copyright ?? 2017 [employer], a division of [employer]. All rights reserved. documented in this encounter [...] Haloperidol Seizure ??? Penicillins Redness ??? Resperal-Dm [Pvz-Jo-Xob-Propyl Xomoxd-Snv-Qhycsockj] Seizure ??? Triazolam Seizure Past Medical History: [...] Results * HOLTER MONITOR 48 HR REC ([id number]) (06/17/2017) Asa Mcnamara MD HOLTER Final Result documented in this encounter Visit Diagnoses Diagnosis Lower leg edema- Primary Edema PVD (peripheral vascular disease) with claudication (CMS/HCC) Peripheral vascular disease, unspecified Palpitations Essential hypertension Unspecified essential hypertension Hyperlipidemia, mixed Mixed hyperlipidemia documented in this encounter Care Teams Windlace Machine Operator Relationship Specialty Start Date End Date , Generic Conversion, PCP - General 03/11/17 06/14/17 Asa Mcnamara MD [facility]. [facility] [address] [place] [address] Umpire Metal Weigher CARDIOVASCULAR DISEASE 05/15/16 documented as of this encounter
--- OUTSIDE RECORDS SUMMARY | 2024-11-12 05:29 | XMS_ITS | Encounter Summary ---
Author Organization [facility] Address [facility] [place] [address] [place] [address] Care Team Providers Care Rest Room Matron Name Role Phone Asa Mcnamara MD Unavailable [phone] Heber Adorno MD Primary Care Provider Unavailable Encounter Details Date Type Department Care Team (Late st Contact Info) Description 03/11/2017 Orders Only [facility] [address] [place] [address] Asa Mcnamara MD [address] [address] Social History Tobacco Use Types Packs/Day Years Used Date Smoking Tobacco: Every Day Cigarettes Smokeless Tobacco: Never Comments:3 cig a day Alcohol Use Standard Drinks/Week Comments No 0 (1 standard drink = 0.6 oz pur e alcohol) Comments Unknown Sex and Gender Information Value Date Recorded Sex Assigned at Female 12/06/2019 3:36 PM DIRECTOR OF AUDIOLOGY Legal Sex Female 5:20 PM CDT Gender Identity Female 12/06/2019 3:36 PM DIRECTOR OF AUDIOLOGY Sexual Orientation Straight 12/06/2019 3: 36 PM DIRECTOR OF AUDIOLOGY Occupation Industry Job Start Date Job End [...] CDT) 03/11/2017 11:5 2 AM CDT Narrative [facility] - 03/11/2017 12:00 AM CDT ?ARTERIAL DOPPLER - KENZIE ?BILATERAL LOWER EXTREMITY ? VASCULAR LAB Pat.Name: ??RODY CRUZ ? Pat.ID: ?[id number] ? St.Date: ?? 03/11/2017 ? Exam Time: [...] EXTREMITY VASCULAR LAB Pat.Name: RODY CRUZ Pat.ID: [id number] St.Date: 03/11/2017 Exam Time: 11:52:00 AM Study [...] Mcnamara MD [facility] Final Resu lt [facility] documented in this encounter Visit Diagnoses Not on filedocumented in this encounter Care Teams Rest Room Matron Relationship Specialty Start Date End Date Heber Adorno MD PCP - General 03/11/17 06/14/17 Asa Mcnamara MD [facility] [address] [place] [address] [place] Manager [place] CARDIOVASCULAR DISEASE 05/15/16 documented as of this encounter
--- OUTSIDE RECORDS SUMMARY | 2024-11-12 05:29 | XMS_ITS | Encounter Summary ---
Author Organization [facility] Address [facility], [id number] [facility] [place] [address] [place] [address] Care Team Providers Care Boomswing Operator Name Role Phone Asa Mcnamara MD Unavailable [phone] Deisi Andrews MD Primary Care Provider [phone] Reason for Visit * Reason Onset Date Comments Testing 02/17/2017 Encounter Details Date Type Department Care Team (Late st Contact Info) Description 02/17/2017 Telephone [employer] [facility] AT [address] [address] Asa Mcnamara MD [address] [address] Testing Social History Tobacco Use Types Packs/Day Years Used Date Smoking Tobacco: Every Day Cigarettes Smokeless Tobacco: Never Comments:3 cig a day Alcohol Use Standard Drinks/Week Comments No 0 (1 standard drink = 0.6 oz pur e alcohol) Comments Unknown Sex and Gender Information Value Date Recorded Sex Assigned at Female 12/06/2019 3:36 PM COOPERER Legal Sex Female 5:20 PM CDT Gender Identity Female 12/06/2019 3:36 PM COOPERER Sexual Orientation Straight 12/06/2019 3: 36 PM COOPERER Occupation Industry Job Start Date Job End Date Not on file Not on file Not on file Not on file documented as of this encounter Progress Notes * Porsha David - 02/17/2017 10:04 AM CDT Patient called [...] on filedocumented in this encounter Care Teams Boomswing Operator Relationship Specialty Start Date End Date Deisi Andrews MD [address] [place] [address] [place] [address] PCP - General FAMILY PRACTICE 02/13/17 03/10/17 Asa Mcnamara MD [facility] [address] [place] [address] [place] Journalism Intern CARDIOVASCULAR DISEASE 05/15/16 documented as of this encounter
--- OUTSIDE RECORDS SUMMARY | 2024-11-12 05:29 | XMS_ITS | Encounter Summary ---
Author Organization [facility] Address [address] [facility] [place] [address] [place] [address] Care Team Providers Care Major Account Manager Name Role Phone Asa Mcnamara MD Unavailable [phone] Heber Adorno MD Primary Care Provider Unavailable Reason for Referral * Imaging (Routine) - Closed Specialty Diagnoses / Procedures Referred By Contac t Referred To Contact CARDIOLOGY Diagnoses PVD (peripheral vascular disease) with claudication (CMS/HCC) Procedures IR ABD WITH RUNOFF Asa Mcnamara MD [address] [address] Phone: tel: fax: [facility]- [address] [address] Phone: tel: Referral ID Status Reason Start Date Expiration Date Visits Re quested Visits Authorized [id number] Closed 03/22/2017 04/23/2017 1 1 Reason for Visit * Reason Comments Peripheral Vascular Disease Encounter Details Date Type Department Care Team (Late st Contact Info) Description 03/22/2017 11:15 AM CDT Office Visit [facility] AT [address] [address] Asa Mcnamara MD [address] [address] Peripheral Vascular Disease Social History Tobacco Use Types Packs/Day Years Used Date Smoking Tobacco: Every Day Cigarettes Smokeless Tobacco: Never Alcohol Use Standard Drinks/Week Comments No 0 (1 standard drink = 0.6 oz pur e alcohol) Comments Unknown Sex and Gender Information Value Date Recorded Sex Assigned at Female 12/06/2019 3:36 PM AUTOMATION QA TESTER Legal Sex Female 5:20 PM CDT Gender Identity Female 12/06/2019 3:36 PM AUTOMATION QA TESTER Sexual Orientation Straight 12/06/2019 3: 36 PM AUTOMATION QA TESTER Occupation Industry Job Start Date Job [...] the original note were not included. Index Kiswahili All??languages Related??topics Peripheral Artery Disease [place] POINTS [...] help from your healthcare provider or a defensive line coach (client resource specialist) to care for them safely. ?? Ask [...] risk for peripheral artery disease. Developed by [employer]. Adult Advisor 2017.1 published by [employer]. Last modified: 2016-12-10 Last reviewed: 2016-06-02 This content is reviewed periodically and is subject to change as new health information becomes available. The information is intended to inform and educate and is not a replacement for medical evaluation, advice, diagnosis or treatment by a healthcare professional. References Adult Advisor 2017.1 Index Copyright ?? 2017 [employer], a division of [employer]. All rights reserved. documented in this encounter [...] Haloperidol Seizure ??? Penicillins Redness ??? Resperal-Dm [Hzo-Lt-Coj-Propyl Wnxgzr-Mtw-Qkkkpqapj] Seizure ??? Triazolam Seizure Past Medical History: [...] hyperlipidemia documented in this encounter Care Teams Major Account Manager Relationship Specialty Start Date End Date , Heber Trinidad, PCP - General 03/11/17 06/14/17 Asa Mcnamara MD [facility]. [facility] [address] [place] [address] [place] Hat Finishing Materials Preparer CARDIOVASCULAR DISEASE 05/15/16 documented as of this encounter
--- OUTSIDE RECORDS SUMMARY | 2024-11-12 05:29 | XMS_ITS | Encounter Summary ---
Author Organization [facility] Address [facility]6 [facility] [place] [address] [place] [address] Care Team Providers Care Home Sales Consultant Name Role Phone Asa Mcnamara MD Unavailable [phone] Deisi Andrews MD Primary Care Provider [phone] Encounter Details Date Type Department Care Team (Late st Contact Info) Description 12/02/2017 Orders Only [facility], [facility] [address] [place], [place] [id number] Asa Mcnamara MD [facility]. [facility] [address] [place], [place] [address] Social History Tobacco Use Types Packs/Day Years Used Date Smoking Tobacco: Every Day Cigarettes Smokeless Tobacco: Never Comments:2 cig a day Alcohol Use Standard Drinks/Week Comments No 0 (1 standard drink = 0.6 oz pur e alcohol) Comments Unknown Sex and Gender Information Value Date Recorded Sex Assigned at Female 12/06/2019 3:36 PM SUPERVISORY INVESTIGATIVE SPECIALIST Legal Sex Female 5:20 PM CDT Gender Identity Female 12/06/2019 3:36 PM SUPERVISORY INVESTIGATIVE SPECIALIST Sexual Orientation Straight 12/06/2019 3: 36 PM SUPERVISORY INVESTIGATIVE SPECIALIST Occupation Industry Job Start Date Job End Date Not on file Not on file Not on file Not on file documented as of this encounter Plan of Treatment Not on file documented as of this encounter Visit Diagnoses Diagnosis PVD (peripheral vascular disease) (CMS/HCC)- Primary Peripheral vascular disease, unspecified documented in this encounter Care Teams Home Sales Consultant Relationship Specialty Start Date End Date Deisi Andrews MD [address] [place] [address] [place] [address] PCP - General FAMILY PRACTICE 06/15/17 10/14/19 Asa Mcnamara MD [facility] [address] [place] [address] [place] Senior Software Quality Analyst CARDIOVASCULAR DISEASE 05/15/16 documented as of this encounter
--- OUTSIDE RECORDS SUMMARY | 2024-11-12 05:29 | XMS_ITS | Encounter Summary ---
Author Organization [facility] Address [address] [facility]. [place], [place] [address] [place] [address] Care Team Providers Care Recovery Manager Name Role Phone Asa Mcnamara MD Unavailable [phone] Deisi Andrews MD Primary Care Provider [phone] Reason for Referral * Imaging (Routine) - Closed Specialty Diagnoses / Procedures Referred By Contac t Referred To Contact CARDIOLOGY Diagnoses PVD (peripheral vascular disease) (CMS/HCC) Symptoms involving cardiovascular system Procedures USV AORTA ILIAC IVC DUPLEX COMP Asa Mcnamara MD [address] [address] Phone: tel: fax: [place] [address] Phone: tel: Referral ID Status Reason Start Date Expiration Date Visits Re quested Visits Authorized [id number] Closed 12/07/2017 01/24/2018 1 1 ATION SITE MANAGER * Imaging (Routine) - Closed Specialty Diagnoses / Procedures Referred By Contac t Referred To Contact CARDIOLOGY Diagnoses PVD (peripheral vascular disease) (CMS/HCC) Symptoms involving cardiovascular system Procedures USV POST/PRE/OTHER KENZIE DILEEP Asa Mcnamara MD [facility]. [place] [address] [place] [address] Phone: tel: fax: [facility] [place] [address] Phone: tel: Referral ID Status Reason Start Date Expiration Date Visits Re quested Visits Authorized [id number] Closed 12/07/2017 01/24/2018 1 1 ATION SITE MANAGER Encounter Details Date Type Department Care Team (Late st Contact Info) Description 12/07/2017 Orders Only [facility] [place] [facility], [place] [address] [place], [place] [id number] Asa Mcnamara MD [facility]. [facility] [address] [place] [address] Social History Tobacco Use Types Packs/Day Years Used Date Smoking Tobacco: Every Day Cigarettes Smokeless Tobacco: Never Comments:2 cig a day Alcohol Use Standard Drinks/Week Comments No 0 (1 standard drink = 0.6 oz pur e alcohol) Comments Unknown Sex and Gender Information Value Date Recorded Sex Assigned at Female 12/06/2019 3:36 PM EDUCATION SITE MANAGER Legal Sex Female 5:20 PM CDT Gender Identity Female 12/06/2019 3:36 PM EDUCATION SITE MANAGER Sexual Orientation Straight 12/06/2019 3: 36 PM EDUCATION SITE MANAGER Occupation Industry Job Start Date Job End Date Not on file Not on file Not on file Not on file documented as of this encounter Plan of Treatment Not on file documented as of this encounter Results * USV AORTA ILIAC IVC DUPLEX COMP (12/31/2017 8:54 AM EDUCATION SITE MANAGER) Anatomical Region Laterality Modality NA Vascular Ultraso und 12/31/2017 8:00 AM EDUCATION SITE MANAGER Narrative 12/31/2017 7:31 PM EDUCATION SITE MANAGER ?[id number]-[id number]-[id number] DUPLEX IMAGING ? VASCULAR LAB Pat.Name: ??ARNOLD CRUZ ?Pat.ID: ?[id number] ? St.Date: ?? 12/31/2017 ? Refer.: ??ASA [...] Procedure Note Leo Gutierrez MD - 12/31/2017 [id number]-[id number]-[id number] DUPLEX IMAGING VASCULAR LAB Pat.Name: ARNOLD CRUZ Pat.ID: [id number] .Date: 12/31/2017 Refer.MD: ASA MCNAMARA Exam Time: [...] USV POST/PRE/OTHER KENZIE DILEEP (12/31/2017 8:54 AM EDUCATION SITE MANAGER) Anatomical Region Laterality Modality Extremity Vascular Ultraso und 12/31/2017 8:43 AM EDUCATION SITE MANAGER Narrative 01/02/2018 7:09 AM EDUCATION SITE MANAGER ?ARTERIAL DOPPLER - KENZIE ?BILATERAL LOWER EXTREMITY ? VASCULAR LAB ? Pat.Name: ??ARNOLD CRUZ ?Pat.ID: ?[id number] ? St.Date: ?? 12/31/2017 ? Refer.MD: ??ASA [...] indicated. ++++++++++++++++++++++++++++++++++++ MEASUREMENTS: ++++++++++++++++++++++++++++++++++++ ?DOPPLER Left Dist FLOATER OPERATOR ?? Dist FLOATER OPERATOR PSV ?58.8 cm/s ? Left Dist BHUMI ?? Dist BHUMI PSV ?50.3 cm/s ? Right Dist FLOATER OPERATOR ?? Dist FLOATER OPERATOR PSV ?50.8 cm/s ? Right Dist BHUMI [...] EXTREMITY VASCULAR LAB Pat.Name: ARNOLD CRUZ Pat.ID: [id number] .Date: 12/31/2017 Refer.MD: ASA MCNAMARA Exam Time: [...] indicated. ++++++++++++++++++++++++++++++++++++ MEASUREMENTS: ++++++++++++++++++++++++++++++++++++ DOPPLER Left Dist FLOATER OPERATOR Dist FLOATER OPERATOR PSV 58.8 cm/s Left Dist BHUMI Dist BHUMI PSV 50.3 cm/s Right Dist FLOATER OPERATOR Dist FLOATER OPERATOR PSV 50.8 cm/s Right Dist BHUMI Dist [...] AM Caesar Aguayo M.D. Asa Mcnamara MD [facility] Final Result documented in this encounter Visit Diagnoses Diagnosis PVD (peripheral vascular disease) (CMS/HCC)- Primary Peripheral vascular disease, unspecified Symptoms involving cardiovascular system Other symptoms involving cardiovascular system PVD (peripheral vascular disease) (CMS/HCC) Peripheral vascular disease, unspecified Symptoms involving cardiovascular system Other symptoms involving cardiovascular system documented in this encounter Care Teams Recovery Manager Relationship Specialty Start Date End Date Deisi Andrews MD [address] [place] [address] [place] [address] PCP - General FAMILY PRACTICE 06/15/17 10/14/19 Asa Mcnamara MD [facility]. [facility] [address] [place] [address] Stephen Accelerator Technician CARDIOVASCULAR DISEASE 05/15/16 documented as of this encounter
--- OUTSIDE RECORDS SUMMARY | 2024-11-12 05:29 | XMS_ITS | Encounter Summary ---
Author Organization [facility] Address [address] [facility] [place] [address] [place] [address] Care Team Providers Care Merchandise Clerk Name Role Phone Asa Mcnamara MD Unavailable [phone] Deisi Andrews MD Primary Care Provider [phone] Reason for Referral * Imaging (Routine) - Closed Specialty Diagnoses / Procedures Referred By Contac t Referred To Contact CARDIOLOGY Diagnoses Carotid stenosis Procedures USV CAROTID DUPLEX DILEEP Asa Mcnamara MD [address] [address] Phone: tel: fax: [place] [address] Phone: tel: Referral ID Status Reason Start Date Expiration Date Visits Re quested Visits Authorized [id number] Closed 01/05/2018 07/28/2018 1 1 * Imaging (Routine) - Closed Specialty Diagnoses / Procedures Referred By Contac t Referred To Contact CARDIOLOGY Diagnoses Symptoms involving cardiovascular system PVD (peripheral vascular disease) (CMS/HCC) Essential hypertension Procedures USV AORTA ILIAC IVC DUPLEX COMP Asa Mcnamara MD [address] [address] Phone: tel: fax: [facility] [place] [address] Phone: tel: Referral ID Status Reason Start Date Expiration Date Visits Re quested Visits Authorized [id number] Closed 01/05/2018 07/28/2018 1 1 * Imaging (Routine) - Closed Specialty Diagnoses / Procedures Referred By Contac t Referred To Contact CARDIOLOGY Diagnoses Symptoms involving cardiovascular system PVD (peripheral vascular disease) (CMS/HCC) Essential hypertension Procedures USV POST/PRE/OTHER KENZIE DILEEP Asa Mcnamara MD [facility]. [address] [address] Phone: tel: fax: [facility] [place] [address] Phone: tel: Referral ID Status Reason Start Date Expiration Date Visits Re quested Visits Authorized [id number] Closed 01/05/2018 07/28/2018 1 1 Reason for Visit * Imaging (Routine) - Closed Specialty Diagnoses / Procedures Referred By Contac t Referred To Contact CARDIOLOGY Diagnoses Symptoms involving cardiovascular system PVD (peripheral vascular disease) (CMS/HCC) Essential hypertension Procedures USV POST/PRE/OTHER KENZIE Asa Cazares MD [facility]. [address] [address] Phone: tel: fax: [facility] [place] [address] Phone: tel: Referral ID Status Reason Start Date Expiration Date Visits Re quested Visits Authorized [id number] Closed 01/05/2018 07/28/2018 1 1 Encounter Details Date Type Department Care Team (Late st Contact Info) Description 06/27/2018 7:57 AM CDT - 06/27/2018 11:59 PM CDT Hospital Encounter [facility] Lab [facility] [place] [address] Asa Mcnamara MD [facility]. [place] [address] [place] [address] Discharge Disposition: Home or Self Care (Routine Discharge) Social History Tobacco Use Types Packs/Day Years Used Date Smoking Tobacco: Every Day Cigarettes Smokeless Tobacco: Never Comments:1 pk day Alcohol Use Standard Drinks/Week Comments No 0 (1 standard drink = 0.6 oz pur e alcohol) Comments Unknown Sex and Gender Information Value Date Recorded Sex Assigned at Female 12/06/2019 3:36 PM COIL PLACER Legal Sex Female 5:20 PM CDT Gender Identity Female 12/06/2019 3:36 PM COIL PLACER Sexual Orientation Straight 12/06/2019 3: 36 PM COIL PLACER Occupation Industry Job Start Date Job End [...] AM CDT Narrative 06/27/2018 5:39 PM CDT ?[id number]-[id number]-TEY DUPLEX IMAGING ? VASCULAR LAB Pat.Name: ??RODY CRUZ ?Pat.ID: ?[id number] ? St.Date: ?? 06/27/2018 ? Refer.MD: ??Deisi [...] Procedure Note Asa Mcnamara MD - 06/27/2018 [id number]-[id number] DUPLEX IMAGING VASCULAR LAB Pat.Name: RODY CRUZ Pat.ID: [id number] .Date: 06/27/2018 Refer.MD: Deisi Andrews Exam Time: [...] ? VASCULAR LAB Pat.Name: ??GELSO, RODY ?Pat.ID: ?[id number] ? St.Date: ?? 06/27/2018 ? Refer.: ??Deisi [...] IMAGING VASCULAR LAB Pat.Name: RODY CRUZ Pat.ID: [id number] .Date: 06/27/2018 Refer.MD: Deisi Andrews Exam Time: [...] VASCULAR LAB ? Pat.Name: ??GELSO, RODY ?Pat.ID: ?[id number] ? St.Date: ?? 06/27/2018 ? Refer.: ??Deisi [...] anomaly. ++++++++++++++++++++++++++++++++++++ MEASUREMENTS: ++++++++++++++++++++++++++++++++++++ ?DOPPLER Left Dist CONCRETE PIPE PLANT SUPERVISOR ?? Dist CONCRETE PIPE PLANT SUPERVISOR PSV ?66.8 cm/s ? Left Dist BHUMI ?? Dist BHUMI PSV ?59.1 cm/s ? Right Dist CONCRETE PIPE PLANT SUPERVISOR ?? Dist CONCRETE PIPE PLANT SUPERVISOR PSV ?66.6 cm/s ? Right Dist BHUMI [...] EXTREMITY VASCULAR LAB Pat.Name: RODY CRUZ Pat.ID: [id number] St.Date: 06/27/2018 Refer.MD: Deisi Andrews Exam Time: 9:23:00 AM Study Type:SCOTTIE VS Arterial Doppler KENZIE [facility] Age: 2 1960,57Y Sex: FEMALE Sonogrphr: Liliana [...] anomaly. ++++++++++++++++++++++++++++++++++++ MEASUREMENTS: ++++++++++++++++++++++++++++++++++++ DOPPLER Left Dist CONCRETE PIPE PLANT SUPERVISOR Dist CONCRETE PIPE PLANT SUPERVISOR PSV 66.8 cm/s Left Dist BHUMI Dist BHUMI PSV 59.1 cm/s Right Dist CONCRETE PIPE PLANT SUPERVISOR Dist CONCRETE PIPE PLANT SUPERVISOR PSV 66.6 cm/s Right Dist BHUMI Dist [...] infarction documented in this encounter Care Teams Merchandise Clerk Relationship Specialty Start Date End Date Deisi Andrews MD [address] [place] [address] [place] [address] PCP - General FAMILY PRACTICE 06/15/17 10/14/19 Asa Mcnamara MD [facility] [address] [place] [address] [place] Special Diet Cook CARDIOVASCULAR DISEASE 05/15/16 documented as of this encounter
--- OUTSIDE RECORDS SUMMARY | 2024-11-12 05:29 | XMS_ITS | Encounter Summary ---
Author Organization [facility] Address [facility] [address] [place] [address] Care Team Providers Care Reefer Engineer Name Role Phone Asa Mcnamara MD Unavailable [phone] Deisi Andrews MD Primary Care Provider [phone] Reason for Visit * Reason Onset Date Comments Lab Results 06/23/2017 Encounter Details Date Type Department Care Team (Late st Contact Info) Description 06/23/2017 Telephone [facility] AT [address] [address] Katt Walter, broadcast supervisor Results Social History Tobacco Use Types Packs/Day Years Used Date Smoking Tobacco: Every Day Cigarettes Smokeless Tobacco: Never Comments:2 cig a day Alcohol Use Standard Drinks/Week Comments No 0 (1 standard drink = 0.6 oz pur e alcohol) Comments Unknown Sex and Gender Information Value Date Recorded Sex Assigned at Female 12/06/2019 3:36 PM TAX SENIOR ASSOCIATE Legal Sex Female 5:20 PM CDT Gender Identity Female 12/06/2019 3:36 PM TAX SENIOR ASSOCIATE Sexual Orientation Straight 12/06/2019 3: 36 PM TAX SENIOR ASSOCIATE Occupation Industry Job Start Date Job [...] Hypopotassemia documented in this encounter Care Teams Reefer Engineer Relationship Specialty Start Date End Date Deisi Andrews MD [address] [place] [address] [place] [address] PCP - General FAMILY PRACTICE 06/15/17 10/14/19 Asa Mcnamara MD [facility]. [facility] [address] [place] [address] [place] Rug Dyer Helper CARDIOVASCULAR DISEASE 05/15/16 documented as of this encounter
--- OUTSIDE RECORDS SUMMARY | 2024-11-12 05:29 | XMS_ITS | Encounter Summary ---
Author Organization [facility] Address [address] [facility] [place] [address] [place] [address] Care Team Providers Care Commercial Light Fixture Assembler Name Role Phone Asa Mcnamara MD Unavailable [phone] Deisi Andrews MD Primary Care Provider [phone] Reason for Visit * Reason Onset Date Comments Refill Request 03/18/2018 Nitroglycerin SL Encounter Details Date Type Department Care Team (Late st Contact Info) Description 03/18/2018 Telephone [employer] [facility] at [facility], [facility] [address] [place] [address] Asa Mcnamara MD [facility]. [facility] [address] [place], [place] [id number] Refill Request (Nitroglycerin SL) Social History Tobacco [...] on filedocumented in this encounter Care Teams Commercial Light Fixture Assembler Relationship Specialty Start Date End Date Deisi Andrews MD [address] [place] [address] [place] [address] PCP - General FAMILY PRACTICE 06/15/17 10/14/19 Asa Mcnamara MD [facility]. [facility] [address] [place] [address] [place] To[employer] Former CARDIOVASCULAR DISEASE 05/15/16 documented as of this encounter
--- OUTSIDE RECORDS SUMMARY | 2024-11-12 05:29 | XMS_ITS | Encounter Summary ---
Author Organization [facility] Address [address] [facility]. [place], [place] [address] [place] [address] Care Team Providers Care Insurance Associate Name Role Phone Asa Mcnamara MD Unavailable [phone] Deisi Andrews MD Primary Care Provider [phone] Reason for Referral * Imaging (Routine) - Closed Specialty Diagnoses / Procedures Referred By Contac t Referred To Contact CARDIOLOGY Diagnoses PVD (peripheral vascular disease) (CMS/HCC) Symptoms involving cardiovascular system Procedures USV POST/PRE/OTHER KENZIE DILEEP Asa Mcnamara MD [address] [address] Phone: tel: fax: [place] [address] Phone: tel: Referral ID Status Reason Start Date Expiration Date Visits Re quested Visits Authorized [id number] Closed 12/07/2017 01/24/2018 1 1 TEACHER * Imaging (Routine) - Closed Specialty Diagnoses / Procedures Referred By Contac t Referred To Contact CARDIOLOGY Diagnoses PVD (peripheral vascular disease) (CMS/HCC) Symptoms involving cardiovascular system Procedures USV AORTA ILIAC IVC DUPLEX COMP Asa Mcnamara MD Three [facility]. [address] [address] Phone: tel: fax: [place] [address] Phone: tel: Referral ID Status Reason Start Date Expiration Date Visits Re quested Visits Authorized [id number] Closed 12/07/2017 01/24/2018 1 1 TEACHER Reason for Visit * Imaging (Routine) - Closed Specialty Diagnoses / Procedures Referred By Contac t Referred To Contact CARDIOLOGY Diagnoses PVD (peripheral vascular disease) (CMS/HCC) Symptoms involving cardiovascular system Procedures USV AORTA ILIAC IVC DUPLEX COMP Asa Mcnamara MD Three [address] [address] Phone: tel: fax: [place] [address] Phone: tel: Referral ID Status Reason Start Date Expiration Date Visits Re quested Visits Authorized [id number] Closed 12/07/2017 01/24/2018 1 1 Encounter Details Date Type Department Care Team (Late st Contact Info) Description 12/31/2017 7:40 AM SLP TEACHER - 12/31/2017 9:05 AM SLP TEACHER Hospital Encounter [facility] [place] [address] Asa Mcnamara MD Three [facility]. [address] [id number] Discharge Disposition: Home or Self Care (Routine Discharge) Social History Tobacco Use Types Packs/Day Years Used Date Smoking Tobacco: Every Day Cigarettes Smokeless Tobacco: Never Comments:2 cig a day Alcohol Use Standard Drinks/Week Comments No 0 (1 standard drink = 0.6 oz pur e alcohol) Comments Unknown Sex and Gender Information Value Date Recorded Sex Assigned at Female 12/06/2019 3:36 PM SLP TEACHER Legal Sex Female 5:20 PM CDT Gender Identity Female 12/06/2019 3:36 PM SLP TEACHER Sexual Orientation Straight 12/06/2019 3: 36 PM SLP TEACHER Occupation Industry Job Start Date Job [...] IVC DUPLEX COMP Routine 12/31/2017 8:54 AM SLP TEACHER PVD (peripheral vascular disease) Symptoms involving cardiovascular system USV KENZIE LTD DILEEP Routine 12/31/2017 8:54 AM SLP TEACHER PVD (peripheral vascular disease) Symptoms involving cardiovascular system documented in this encounter Results * USV AORTA ILIAC IVC DUPLEX COMP (12/31/2017 8:54 AM SLP TEACHER) Anatomical Region Laterality Modality NA Vascular Ultraso und 12/31/2017 8:00 AM SLP TEACHER Narrative 12/31/2017 7:31 PM SLP TEACHER ?[id number] DUPLEX IMAGING ? VASCULAR LAB Pat.Name: ??RODY CRUZ ?Pat.ID: ?[id number] ? St.Date: ?? 12/31/2017 ? Refer.: ??ASA MCNMAARA ? Exam Time: 8:00:00 AM ? Study [...] Procedure Note Leo Gutierrez MD - 12/31/2017 [id number] DUPLEX IMAGING VASCULAR LAB Pat.Name: RODY CRUZ Pat.ID: [id number] St.Date: 12/31/2017 Refer.: ASA MCNAMARA Exam Time: [...] USV POST/PRE/OTHER KENZIE DILEEP (12/31/2017 8:54 AM SLP TEACHER) Anatomical Region Laterality Modality Extremity Vascular Ultraso und 12/31/2017 8:43 AM SLP TEACHER Narrative 01/02/2018 7:09 AM SLP TEACHER ?ARTERIAL DOPPLER - KENZIE ?BILATERAL LOWER EXTREMITY ? VASCULAR LAB ? Pat.Name: ??GELSO, RODY ?Pat.ID: ?[id number] ? St.Date: ?? 12/31/2017 ? Refer.: ??ASA [...] indicated. ++++++++++++++++++++++++++++++++++++ MEASUREMENTS: ++++++++++++++++++++++++++++++++++++ ?DOPPLER Left Dist BORDER 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 ?? Dist BORDER 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 PSV ?58.8 cm/s ? Left Dist BHUMI ?? Dist BHUMI PSV ?50.3 cm/s ? Right Dist BORDER 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 ?? Dist BORDER 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 PSV ?50.8 cm/s ? Right Dist [...] EXTREMITY VASCULAR LAB Pat.Name: RODY CRUZ Pat.ID: [id number] St.Date: 12/31/2017 Refer.: ASA MCNAMARA Exam Time: [...] indicated. ++++++++++++++++++++++++++++++++++++ MEASUREMENTS: ++++++++++++++++++++++++++++++++++++ DOPPLER Left Dist BORDER 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 Dist BORDER 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 PSV 58.8 cm/s Left Dist BHUMI Dist BHUMI PSV 50.3 cm/s Right Dist BORDER 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 Dist BORDER 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 PSV 50.8 cm/s Right Dist BHUMI [...] system documented in this encounter Care Teams Insurance Associate Relationship Specialty Start Date End Date Deisi Andrews MD [address] [place] [address] [place] [address] PCP - General FAMILY PRACTICE 06/15/17 10/14/19 Asa Mcnamara MD [facility] [address] [place] [address] [place] Brick Or Block Maker CARDIOVASCULAR DISEASE 05/15/16 documented as of this encounter
--- OUTSIDE RECORDS SUMMARY | 2024-11-12 05:29 | XMS_ITS | Encounter Summary ---
Author Organization [facility] Address [address] [facility] [place] [address] [place] [address] Care Team Providers Care Shipyard Painting Supervisor Name Role Phone Asa Mcnamara MD Unavailable [phone] Deisi Andrews MD Primary Care Provider [phone] Reason for Referral * Imaging (Routine) - Closed Specialty Diagnoses / Procedures Referred By Contac t Referred To Contact CARDIOLOGY Diagnoses Carotid stenosis Procedures USV CAROTID DUPLEX DILEEP Asa Mcnamara MD [facility]. [facility] [address] [place] [address] Phone: tel: fax: [place] [address] Phone: tel: Referral ID Status Reason Start Date Expiration Date Visits Re quested Visits Authorized [id number] Closed 01/05/2018 07/28/2018 1 1 RONMENTAL MARKETING 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 Encounter Details Date Type Department Care Team (Late st Contact Info) Description 01/05/2018 Orders Only [facility] at [facility], [facility] [address] [place] [address] Asa Mcnamara MD [facility] [address] [place] [address] [place] [address] Social History Tobacco Use Types Packs/Day Years Used Date Smoking Tobacco: Every Day Cigarettes Smokeless Tobacco: Never Comments:1 pk day Alcohol Use Standard Drinks/Week Comments No 0 (1 standard drink = 0.6 oz pur e alcohol) Comments Unknown Sex and Gender Information Value Date Recorded Sex Assigned at Female 12/06/2019 3:36 PM ENVIRONMENTAL MARKETING 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 Legal Sex Female 5:20 PM CDT Gender Identity Female 12/06/2019 3:36 PM ENVIRONMENTAL MARKETING 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 Sexual Orientation Straight 12/06/2019 3: 36 PM ENVIRONMENTAL MARKETING 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 Occupation Industry Job Start Date Job [...] ? VASCULAR LAB Pat.Name: ??RODY CRUZ ?Pat.ID: ?[id number] ? St.Date: ?? 06/27/2018 ? Refer.: ??Deisi [...] IMAGING VASCULAR LAB Pat.Name: RODY CRUZ Pat.ID: [id number] .Date: 06/27/2018 Refer.MD: Deisi Andrews Exam Time: [...] Asa Mcnamara M.D. us Asa Mcnamara MD [facility] Final Result documented in this encounter Visit Diagnoses Diagnosis Carotid stenosis- Primary Occlusion and stenosis of carotid artery without mention of cerebral infarction documented in this encounter Care Teams Shipyard Painting Supervisor Relationship Specialty Start Date End Date Deisi Andrews MD [address] [place] [address] [place] [address] PCP - General FAMILY PRACTICE 06/15/17 10/14/19 Asa Mcnamara MD [facility]. [place] [address] [place] [address] [place] Radar Operator CARDIOVASCULAR DISEASE 05/15/16 documented as of this encounter
--- OUTSIDE RECORDS SUMMARY | 2024-11-12 05:29 | XMS_ITS | Encounter Summary ---
Author Organization [facility] Address [address] [facility] [place] [address] [place] [address] Care Team Providers Care Paper Rewinder Name Role Phone Asa Mcnamara MD Unavailable [phone] Heber Adorno MD Primary Care Provider Unavailable Reason for Visit * Reason Onset Date Comments Follow Up Call 06/01/2017 Encounter Details Date Type Department Care Team (Late st Contact Info) Description 06/01/2017 Telephone [employer] [facility] AT [address] [address] Karen Barboza, RN Follow Up Call Social History Tobacco Use Types Packs/Day Years Used Date Smoking Tobacco: Every Day Cigarettes Smokeless Tobacco: Never Alcohol Use Standard Drinks/Week Comments No 0 (1 standard drink = 0.6 oz pur e alcohol) Comments Unknown Sex and Gender Information Value Date Recorded Sex Assigned at Female 12/06/2019 3:36 PM BIT AND SHANK DEPARTMENT SUPERVISOR Legal Sex Female 5:20 PM CDT Gender Identity Female 12/06/2019 3:36 PM BIT AND SHANK DEPARTMENT SUPERVISOR Sexual Orientation Straight 12/06/2019 3: 36 PM BIT AND SHANK DEPARTMENT SUPERVISOR Occupation Industry Job Start Date Job [...] Rosy Barboza R.N. Received a message from wastewater treatment operator that pt returned my call, called pt [...] on filedocumented in this encounter Care Teams Paper Rewinder Relationship Specialty Start Date End Date Heber Adorno MD PCP - General 03/11/17 06/14/[address] [facility] [address] [place] [address] [place] Seed Expert CARDIOVASCULAR DISEASE 05/15/16 documented as of this encounter
--- OUTSIDE RECORDS SUMMARY | 2024-11-12 05:29 | XMS_ITS | Encounter Summary ---
Author Organization [facility] Address [facility] [place] [address] [place] [address] Care Team Providers Care Food Counter Attendant Name Role Phone Asa Mcnamara MD Unavailable [phone] Deisi Andrews MD Primary Care Provider [phone] Reason for Visit * Reason Onset Date Comments Refill Request 12/20/2017 potassium chlori de Encounter Details Date Type Department Care Team (Late st Contact Info) Description 12/20/2017 Telephone [facility] at [facility], [facility] [address] [place] [address] Asa Mcnamara MD [facility]. [facility] [address] [place] [address] Refill Request (potassium chloride) Social History Tobacco Use Types Packs/Day Years Used Date Smoking Tobacco: Every Day Cigarettes Smokeless Tobacco: Never Comments:2 cig a day Alcohol Use Standard Drinks/Week Comments No 0 (1 standard drink = 0.6 oz pur e alcohol) Comments Unknown Sex and Gender Information Value Date Recorded Sex Assigned at Female 12/06/2019 3:36 PM COMMUNITY SUPPORT ASSOCIATE Legal Sex Female 5:20 PM CDT Gender Identity Female 12/06/2019 3:36 PM COMMUNITY SUPPORT ASSOCIATE Sexual Orientation Straight 12/06/2019 3: 36 PM COMMUNITY SUPPORT ASSOCIATE Occupation Industry Job Start Date Job End Date Not on file Not on file Not on file Not on file documented as of this encounter Plan of Treatment Not on file documented as of this encounter Visit Diagnoses Not on filedocumented in this encounter Care Teams Food Counter Attendant Relationship Specialty Start Date End Date Deisi Andrews MD [address] [place] [address] [place] [address] PCP - General FAMILY PRACTICE 06/15/17 10/14/19 Asa Mcnamara MD [facility]. [facility] [address] [place] [address] [place] Ware[employer] Shipping Receiving Clerk CARDIOVASCULAR DISEASE 05/15/16 documented as of this encounter
--- OUTSIDE RECORDS SUMMARY | 2024-11-12 05:29 | XMS_ITS | Encounter Summary ---
Author Organization [facility] Address [facility]. [place], [place] [address] [place] [address] Care Team Providers Care M1 Armor Crewman Name Role Phone Asa Mcnamara MD Unavailable [phone] Deisi Andrews MD Primary Care Provider [phone] Encounter Details Date Type Department Care Team (Latest Contact Info) Description 09/17/2017 Abstract [facility] Social History Tobacco Use Types Packs/Day Years Used Date Smoking Tobacco: Every Day Cigarettes Smokeless Tobacco: Never Comments:2 cig a day Alcohol Use Standard Drinks/Week Comments No 0 (1 standard drink = 0.6 oz pur e alcohol) Comments Unknown Sex and Gender Information Value Date Recorded Sex Assigned at Female 12/06/2019 3:36 PM ICE PLATFORM SUPERVISOR Legal Sex Female 5:20 PM CDT Gender Identity Female 12/06/2019 3:36 PM ICE PLATFORM SUPERVISOR Sexual Orientation Straight 12/06/2019 3: 36 PM ICE PLATFORM SUPERVISOR Occupation Industry Job Start Date Job End Date Not on file Not on file Not on file Not on file documented as of this encounter Plan of Treatment Not on file documented as of this encounter Visit Diagnoses Not on filedocumented in this encounter Care Teams M1 Armor Crewman Relationship Specialty Start Date End Date Deisi Andrews MD [address] [place], [place] [address] [address] PCP - General FAMILY PRACTICE 06/15/17 10/14/19 Asa Mcnamara MD Three [facility]. [facility] [address] [place] [address] [place] Geology Associate CARDIOVASCULAR DISEASE 05/15/16 documented as of this encounter
--- OUTSIDE RECORDS SUMMARY | 2024-11-12 05:29 | XMS_ITS | Encounter Summary ---
Author Organization [facility] Address [facility]. [place], [place] [address] [place] [address] Care Team Providers Care Mohel Name Role Phone Asa Mcnamara MD Unavailable [phone] Heber Adorno MD Primary Care Provider Unavailable Deisi Andrews MD Primary Care Provider [phone] Encounter Details Date Type Department Care Team (Latest Contact Info) Description 04/01/2017 Abstract [facility] Medical Group Social History Tobacco Use Types Packs/Day Years Used Date Smoking Tobacco: Every Day Cigarettes Smokeless Tobacco: Never Alcohol Use Standard Drinks/Week Comments No 0 (1 standard drink = 0.6 oz pur e alcohol) Comments Unknown Sex and Gender Information Value Date Recorded Sex Assigned at Female 12/06/2019 3:[address] CLEANING EQUIPMENT OPERATOR Legal Sex Female 5:20 PM CDT Gender Identity Female 12/06/2019 3:[address] CLEANING EQUIPMENT OPERATOR Sexual Orientation Straight 12/06/2019 3: [address] CLEANING EQUIPMENT OPERATOR Occupation Industry Job Start Date Job End Date Not on file Not on file Not on file Not on file documented as of this encounter Plan of Treatment Not on file documented as of this encounter Visit Diagnoses Not on filedocumented in this encounter Care Teams [place] Relationship Specialty Start Date End Date Heber Adorno MD PCP - General 03/11/17 06/14/17 Deisi Andrews MD [address] [place] [address] [place] [address] PCP - General FAMILY PRACTICE 06/15/17 10/14/19 Asa Mcnamara MD [place] [address] [place] [address] [place] Extender CARDIOVASCULAR DISEASE 05/15/16 documented as of this encounter
--- OUTSIDE RECORDS SUMMARY | 2024-11-12 05:29 | XMS_ITS | Encounter Summary ---
Author Organization [facility] Address [facility] [address] [place] [address] Care Team Providers Care Knee Bolter Name Role Phone Asa Mcnamara MD Unavailable [phone] Deisi Andrews MD Primary Care Provider [phone] Encounter Details Date Type Department Care Team (Late st Contact Info) Description 06/23/2017 Orders Only [facility] AT [address] [address] Asa Mcnamara MD [address] [address] Social History Tobacco Use Types Packs/Day Years Used Date Smoking Tobacco: Every Day Cigarettes Smokeless Tobacco: Never Comments:2 cig a day Alcohol Use Standard Drinks/Week Comments No 0 (1 standard drink = 0.6 oz pur e alcohol) Comments Unknown Sex and Gender Information Value Date Recorded Sex Assigned at Female 12/06/2019 3:36 PM FLORAL DECORATOR Legal Sex Female 5:20 PM CDT Gender Identity Female 12/06/2019 3:36 PM FLORAL DECORATOR Sexual Orientation Straight 12/06/2019 3: 36 PM FLORAL DECORATOR Occupation Industry Job Start Date Job End [...] CDT) GLUCOSE 166(H) 70 - 99 mg/dL [facility] BUN 12 8 - 23 mg/dL [facility] CREATININE S/P/B 0.68 0.60 - 1.10 mg/dL [facility] SODIUM S/P/B 143 136 - 145 mmol/L [facility] POTASSIUM S/P/B 3.4(L) 3.5 - 5.1 mmol/L [facility] CHLORIDE S/P/B 100 98 - 107 mmol/L [facility] CO2 28 22 - 29 mmol/L [facility] CALCIUM S/P/B 9.2 8.6 - 10.2 mg/dL [facility] ANION GAP 18 8 - 20 [facility] EGFR NON-AFR. AMER. >60 >60 mL/min/1. 73m'2 [facility] EGFR AFR. AMER. >60 NOTE: eGFR is not calculated for patients <18 years of age. This is an estimated GFR (CKD EPI) and should not be used for calculating drug doses. >60 mL/min/1. 73m'2 [facility] 06/23/2017 1:55 PM CDT 06/23/2017 2:04 PM CDT us Asa Mcnamara MD LABORATORY Final Result [facility] [address] [place] [address], [place] [phone] documented in this encounter Visit Diagnoses Not on filedocumented in this encounter Care Teams Knee Bolter Relationship Specialty Start Date End Date Deisi Andrews MD [address] [place] [address] [place] [address] PCP - General FAMILY PRACTICE 06/15/17 10/14/19 Asa Mcnamara MD [facility] [address] [place] [address] [place] Social Media Project Manager CARDIOVASCULAR DISEASE 05/15/16 documented as of this encounter
--- OUTSIDE RECORDS SUMMARY | 2024-11-12 05:29 | XMS_ITS | Encounter Summary ---
Author Organization [facility] Address [address] [place] [address] [place] [address] Care Team Providers Care College Sports Assistant Name Role Phone Asa Mcnamara MD Unavailable [phone] Deisi Andrews MD Primary Care Provider [phone] Reason for Visit * Auth/Cert Specialty Diagnoses / Procedures Referred By Contac t Referred To Contact Diagnoses PVD (peripheral vascular disease) with claudication (CMS/HCC) PVD (peripheral vascular disease) with claudication Procedures XA DILEEP LEG ANGIOGRAM POSS OBSERVTION Referral ID Status Reason Start Date Expiration Date Visits Re quested Visits Authorized [id number] 1 1 Encounter Details Date Type Department Care Team (Late st Contact Info) Description 12/06/2017 8:14 AM OVER HAULER HELPER - 12/07/2017 11:27 AM [facility] [address] [place] [address] Asa Mcnamara MD [facility]. [facility] [address] [place] [address] Discharge Disposition: Home or Self Care (Routine Discharge) Social History Tobacco Use Types Packs/Day Years Used Date Smoking Tobacco: Every Day Cigarettes Smokeless Tobacco: Never Comments:2 cig a day Alcohol Use Standard Drinks/Week Comments No 0 (1 standard drink = 0.6 oz pur e alcohol) Comments Unknown Sex and Gender Information Value Date Recorded Sex Assigned at Female 12/06/2019 3:36 PM OVER HAULER HELPER Legal Sex Female 5:20 PM CDT Gender Identity Female 12/06/2019 3:36 PM OVER HAULER HELPER Sexual Orientation Straight 12/06/2019 3: 36 PM OVER HAULER HELPER Occupation Industry Job Start Date Job End Date Not on file Not on file Not on file Not on file documented as of this encounter Last Filed Vital Signs Vital Sign Reading Time Taken Comments Blood Pressure 117/70 12/07/2017 8:32 AM OVER HAULER HELPER Pulse 84 12/07/2017 8:32 AM OVER HAULER HELPER Temperature 36.9 ??C (98.4 ??F) 12/07/2017 8:32 AM CS T Respiratory Rate 18 12/07/2017 8:32 AM OVER HAULER HELPER Oxygen Saturation 93% 12/07/2017 8:32 AM OVER HAULER HELPER Inhaled Oxygen Concentration - - Weight 92 kg (202 lb 13.2 oz) 12/06/2017 7:00 AM OVER HAULER HELPER Height 160 cm (5' 3 ) 12/06/2017 7:00 AM OVER HAULER HELPER Body Mass Index 35.93 12/06/2017 7:00 AM OVER HAULER HELPER documented in this encounter Discharge Summaries * [...] FOLLOW UP: With Anders in 4-6 weeks. #[id number] /NTS HAULER HELPER documented in this encounter Medications at Time [...] VTE Mechanical Prophylaxis Contraindications: severe b/l PVD HAULER HELPER * Nnia Carbajal PharmD - 12/07/2017 10:09 AM CST Opioid IV to PO Conversion Contraindications to IV to PO conversion?: none Original ordered IV/IM opioid: morphine 2 mg q4h PRN moderate pain Oral opioid selected for conversion: hydrocodone/APAP 5/325 mg PO q4h PRN moderate pain HAULER HELPER * Asa Mcnamara MD - 12/07/2017 7:47 [...] Haloperidol Seizure ??? Penicillins Redness ??? Resperal-Dm [[id number] [id number]] Seizure ??? Triazolam Seizure Objective: Blood pressure [...] office in 4-6 weeks. ASA MCNAMARA MD HAULER HELPER documented in this encounter H&P Notes * [...] were discussed with the patient and/or family/personal territory sales representative. Questions were answered and the patient/family/personal territory sales representative verbalized understanding and desires to proceed. Previous Adverse Experience with Sedation, Analgesia, or Anesthesia? NO Physical Exam: General: AAOx3, no acute distress Cardiac: Normal S1/S2 Pulmonary: normal breath sounds bilaterally, no wheezing or crackles ASA Classification:3 Mallampati: 3 NPO: past midnight. Planned Sedation/Analgesic Agent(s): Versed Fentanyl Planned Procedure(s): Angiogram/MANAGER SAP Signed: Dr. Anders MD HAULER HELPER Source Note - Asa Mcnamara MD - 11/25/2017 11:30 AM OVER HAULER HELPER Chief Complaint: Peripheral Vascular Disease (fu from [...] Haloperidol Seizure ??? Penicillins Redness ??? Resperal-Dm [[id number]-Gr-Kjs-Propyl Opukvf-[id number]] Seizure ??? Triazolam Seizure Past Medical History: [...] Stenosis of right carotid artery 5. Hypertriglyceridemia HAULER HELPER documented in this encounter OR Notes * Brief Op Note - Asa Mcnamara MD - 12/06/2017 1:17 PM CST Procedure Note ?? Rody Gelso 12/06/2017 ?? Procedure: MANAGER SAP of bilateral iliac arteries. ?? Indication: Lifestyle limiting claudication ?? Findings: Mild ISR Right KALANI High grade ISR left KALANI MANAGER SAP of bilateral iliac arteries. 7x38 mm iCast stent placed in L KALANI post dilated using 8 x40 mm balloon. MANAGER SAP Of R KALANI using 7x20 mm balloon ? Complications: None ?? Estimated Blood Loss: Minimal ?? Summary and Recommendations: Dual antiplatelets x 3 months. RF modification HAULER HELPER * Op Note - Asa Mcnamara MD [...] right common femoral artery was cannulated. A 5-Cape Verdean sheath was placed. An Omniflush catheter was advanced over a J tipped wire and positioned in the abdominal aorta. Iliac angiogram was performed in the AP and also in oblique projections. Angiography revealed mild in-stent restenosis in the right common iliac artery and high-grade restenosis in the left common iliac artery. Using ultrasound guidance, the left common femoral artery was cannulated. A 7-Cape Verdean 30 cm sheath was placed.The distal marker [...] the sheath in the right groin. A 7-C[place] Verdean 11 cm sheath was placed in the right common femoral artery. Heparin was used for anticoagulation. A 7.0 x 20 mm balloon was placed in the right common iliac artery, a 7.0 x 40 mm balloon was placed in the left common iliac [...] covering the previous stent and extending a fewmillimeters distal to it. The same 7.0 x [...] the stent. The 7.0 x 20 mm balloon was again inflated in the right common iliac artery. Both balloons were expanded to high pressures. The balloons were deflated and removed. A final angiogram was performed which showed the stent wasadequately deployed with no significant waste. There was less than 10% waste in the right common iliac artery stent. Pressures were recorded. At this time, there was no gradient between the aorta andbilateral common femoral arteries. We decided to accept [...] of 3 months. 2. Risk factor modification. #[id number] /NTS HAULER HELPER documented in this encounter Plan of Treatment Pending Results Name Type Priority Associated Diagnoses Date /Time XA DILEEP LEG ANGIOGRAM POSS Cardiac Cath Routine PVD (peripheral vascular disease) with claudication 12/06/2017 3:50 PM OVER HAULER HELPER documented as of this encounter Procedures Procedure Name Priority Date/Time Associated Diagnosis Comments BASIC METABOLIC PANEL Routine 12/07/2017 7:37 AM OVER HAULER HELPER CBC W/DIFF AUTOMATED Routine 12/07/2017 7:37 AM OVER HAULER HELPER POCT ACTIVATED CLOTTING TIME - DOCKED DEVICE TIMED 12/06/2017 9:18 PM OVER HAULER HELPER PVD (peripheral vascular disease) BASIC METABOLIC PANEL Routine 12/06/2017 9:18 PM OVER HAULER HELPER CBC W/DIFF AUTOMATED Routine 12/06/2017 9:18 PM OVER HAULER HELPER POCT ACTIVATED CLOTTING TIME - DOCKED DEVICE Routine 12/06/2017 2:18 PM OVER HAULER HELPER POCT ACTIVATED CLOTTING TIME - DOCKED DEVICE Routine 12/06/2017 1:09 PM OVER HAULER HELPER documented in this encounter Results * (ABNORMAL) BASIC METABOLIC PANEL (12/07/2017 7:37 AM OVER HAULER HELPER) GLUCOSE 137(H) 70 - 99 MG/DL 12/07/2017 8:[address] [facility] BUN 19(H) 7 - 18 MG/DL 12/07/2017 8:[address] [facility] CREATININE S/P/B 0.85 0.55 - 1.02 MG/DL 12/07/2017 8:15 AM [facility] SODIUM S/P/B 138 136 - 145 MMOL/L 12/07/2017 8:15 AM [facility] POTASSIUM S/P/B 4.4 3.5 - 5.1 MMOL/L 12/07/2017 8:15 AM [facility] CHLORIDE S/P/B 105 100 - 108 MMOL/L 12/07/2017 8:15 AM [facility] CO2 25.1 21 - 32 MMOL/L 12/07/2017 8:15 AM [facility] CALCIUM S/P/B 8.3(L) 8.5 - 10.1 MG/DL 12/07/2017 8:15 AM [facility] ANION GAP 12.3 8 - 20 MMOL/L 12/07/2017 8:15 AM [facility] BUN CREATININE RATIO 22.3 6 - 26 12/07/2017 8:15 AM [facility] EGFR NON-AFR. AMER. >60 >60 ML/MIN/1.7 3 M2 12/07/2017 8:15 AM [facility] EGFR AFR. AMER. >60 >60 ML/MIN/1.7 3 M2 12/07/2017 8:15 AM [facility] Comment: NOTE: eGFR is not calculated for patients <18 years of age. This is an estimated GFR (CKD EPI) and should not be used for calculating drug doses. 12/07/2017 7:37 AM OVER HAULER HELPER Asa Mcnamara MD LABORATORY Final Result [facility] [address] [place] [address], [place] [phone] * (ABNORMAL) CBC W/DIFF AUTOMATED (12/07/2017 7:37 AM OVER HAULER HELPER) [facility] WBC 8.1 4.8 - 10.8 x10'3/uL 12/07/2017 7:47 AM [facility] RBC 4.62 4.20 - 5.40 x10'6/uL 12/07/2017 7:47 AM [facility] HGB 12.6 12.0 - 16.0 G/DL 12/07/2017 7:47 AM [facility] HCT 39.7 38.0 - 48.0 % 12/07/2017 7:47 AM [facility] MCV 85.9 81.0 - 99.0 FL 12/07/2017 7:47 AM [facility] MCH 27.3 27.0 - 31.0 PG 12/07/2017 7:47 AM [facility] MCHC 31.7(L) 32.0 - 36.0 G/DL 12/07/2017 7:47 AM [facility] RDW 13.7 11.5 - 14.5 % 12/07/2017 7:47 AM [facility] PLT 158 130 - 400 x10'3/uL 12/07/2017 7:47 AM [facility] MPV 9.2(L) 9.3 - 12.2 FL 12/07/2017 7:47 AM [facility] NEUTROPHILS % 70.3(H) 43.0 - 65.0 % 12/07/2017 7:47 AM [facility] LYMPHOCYTES % 18.6(L) 20.0 - 46.0 % 12/07/2017 7:47 AM [facility] MONOCYTES % 8.0 5.0 - 12.0 % 12/07/2017 7:47 AM [facility] EOSINOPHILS 2.3 1.0 - 3.0 % 12/07/2017 7:47 AM [facility] BASOPHILS 0.4 0.0 - 1.0 % 12/07/2017 7:47 AM [facility] IMMATURE GRANS % 0.4 0.0 - 1.0 % 12/07/2017 7:47 AM [facility] 12/07/2017 7:37 AM OVER HAULER HELPER us Asa Mcnamara MD LABORATORY Final Result [facility] [address] [place] [address], [place] [phone] * (ABNORMAL) BASIC METABOLIC PANEL (12/06/2017 9:18 PM OVER HAULER HELPER) GLUCOSE 122(H) 70 - 99 MG/DL 12/06/2017 10:46 PM [facility] BUN 25(H) 7 - 18 MG/DL 12/06/2017 10:46 PM [facility] CREATININE S/P/B 0.99 0.55 - 1.02 MG/DL 12/06/2017 10:46 PM [facility] SODIUM S/P/B 136 136 - 145 MMOL/L 12/06/2017 10:46 PM [facility] POTASSIUM S/P/B 3.7 3.5 - 5.1 MMOL/L 12/06/2017 10:46 PM [facility] CHLORIDE S/P/B 104 100 - 108 MMOL/L 12/06/2017 10:46 PM [facility] CO2 23.4 21 - 32 MMOL/L 12/06/2017 10:46 PM [facility] CALCIUM S/P/B 8.2(L) 8.5 - 10.1 MG/DL 12/06/2017 10:46 PM [facility] ANION GAP 12.3 8 - 20 MMOL/L 12/06/2017 10:46 PM [facility] BUN CREATININE RATIO 25.2 6 - 26 12/06/2017 10:46 PM [facility] EGFR NON-AFR. AMER. >60 >60 ML/MIN/1.7 3 M2 12/06/2017 10:46 PM [facility] EGFR AFR. AMER. >60 >60 ML/MIN/1.7 3 M2 12/06/2017 10:46 PM [facility] Comment: NOTE: eGFR is not calculated for patients <18 years of age. This is an estimated GFR (CKD EPI) and should not be used for calculating drug doses. 12/06/2017 9:18 PM OVER HAULER HELPER us Asa Mcnamara MD LABORATORY Final Result [facility] [address] [place] [address], * (ABNORMAL) CBC W/DIFF AUTOMATED (12/06/2017 9:18 PM OVER HAULER HELPER) WBC 8.1 4.8 - 10.8 x10'3/uL 12/06/2017 10:39 PM [facility] RBC 4.67 4.20 - 5.40 x10'6/uL 12/06/2017 10:39 PM [facility] HGB 13.0 12.0 - 16.0 G/DL 12/06/2017 10:39 PM [facility] HCT 40.0 38.0 - 48.0 % 12/06/2017 10:39 PM [facility] MCV 85.7 81.0 - 99.0 FL 12/06/2017 10:39 PM [facility] MCH 27.8 27.0 - 31.0 PG 12/06/2017 10:39 PM [facility] MCHC 32.5 32.0 - 36.0 G/DL 12/06/2017 10:39 PM [facility] RDW 13.8 11.5 - 14.5 % 12/06/2017 10:39 PM [facility] PLT 170 130 - 400 x10'3/uL 12/06/2017 10:39 PM [facility] MPV 9.7 9.3 - 12.2 FL 12/06/2017 10:39 PM [facility] NEUTROPHILS % 65.3(H) 43.0 - 65.0 % 12/06/2017 10:39 PM [facility] LYMPHOCYTES % 23.6 20.0 - 46.0 % 12/06/2017 10:39 PM [facility] MONOCYTES % 8.4 5.0 - 12.0 % 12/06/2017 10:39 PM [facility] EOSINOPHILS 1.8 1.0 - 3.0 % 12/06/2017 10:39 PM [facility] BASOPHILS 0.4 0.0 - 1.0 % 12/06/2017 10:39 PM [facility] IMMATURE GRANS % 0.5 0.0 - 1.0 % 12/06/2017 10:39 PM [facility] 12/06/2017 9:18 PM OVER HAULER HELPER us Asa Mcnamara MD LABORATORY Final Result [facility] [address] [place] [address], [place] [phone] * (ABNORMAL) POCT activated clotting time (12/06/2017 9:18 PM OVER HAULER HELPER) ACTIVATED CLOTTING TIME (ACT) 100(L) 113 - 149 SEC 12/06/2017 10:[address] [facility] Blood specimen (specimen) 12/06/2017 9:18 PM OVER HAULER HELPER Asa Mcnamara MD POCT ORDERABLES - DEVICE Fin al Result Performing Organization Address [facility] Co de Phone Number [facility] [address] [place] [address], [place] [phone] * (ABNORMAL) POCT activated clotting time (12/06/2017 2:18 PM OVER HAULER HELPER) ACTIVATED CLOTTING TIME (ACT) 152(H) 113 - 149 SEC 12/06/2017 2:26 PM OVER HAULER HELPER [facility] ORDERS INTERFACE 12/06/2017 2:18 PM OVER HAULER HELPER Asa Mcnamara MD POCT ORDERABLES - DEVICE Fin al Result Performing Organization Address City/[facility] Co de Phone Number [facility] ORDERS INTERFACE US * (ABNORMAL) POCT activated clotting time (12/06/2017 1:09 PM OVER HAULER HELPER) ACTIVATED CLOTTING TIME (ACT) 184(H) 113 - 149 SEC 12/06/2017 1:17 PM OVER HAULER HELPER [facility] ORDERS INTERFACE 12/06/2017 1:09 PM OVER HAULER HELPER Asa Mcnamara MD POCT ORDERABLES - DEVICE Fin al Result [facility] ORDERS INTERFACE US documented [...] vascular disease) (CMS/HCC) Given 12/07/2017 9:18 AM OVER HAULER HELPER 5 mg aspirin chewable tablet 81 mg 81 mg, Oral, Daily, First dose on Wed12/07/17 at 0900, Until DiscontinuedIndications:PVD (peripheral vascular disease) (CMS/HCC) Given 12/07/2017 9:17 AM OVER HAULER HELPER 81 mg cetirizine (ZYRTEC) tablet 10 mg 10 mg, Oral, Daily, First dose on Wed12/06/17 at 1645, Until Discontinued, THERAPEUTIC INTERCHANGE FOR FEXOFENADINE PER P&T PROTOCOLIndications:PVD (peripheral vascular disease) (CMS/HCC) Given 12/07/2017 9:18 AM OVER HAULER HELPER 10 mg Given 12/06/2017 5:47 PM OVER HAULER HELPER 10 mg cilostazol (PLETAL) tablet 100 mg 100 mg, Oral, 2 times daily, First dose on Wed12/06/17 at 2100, Until DiscontinuedIndications:PVD (peripheral vascular disease) (CMS/HCC) Given 12/07/2017 9:18 AM OVER HAULER HELPER 100 mg Given 12/06/2017 9:01 PM OVER HAULER HELPER 100 mg clopidogrel (PLAVIX) tablet 75 mg 75 mg, Oral, Daily, First dose on Wed12/07/17 at 0900, Until Discontinued, Post-OpIndications:PVD (peripheral vascular disease) (CMS/HCC) Given 12/07/2017 9:17 AM OVER HAULER HELPER 75 mg cyclobenzaprine (FLEXERIL) tablet 10 mg 10 mg, Oral, As needed, Muscle Spasms, Starting on Wed12/06/17 at 1628, Until Wed12/07/17 at 1340Indications:PVD (peripheral vascular disease) (CMS/HCC) Given 12/06/2017 5:46 PM OVER HAULER HELPER 10 mg fenofibrate (TRICOR) tablet 145 mg 145 mg (rounded from 160 mg), Oral, Daily, First dose on Wed12/06/17 at 1645, Until DiscontinuedIndications:PVD (peripheral vascular disease) ([facility]) Given 12/07/2017 9:18 AM OVER HAULER HELPER 145 mg Given 12/06/2017 5:46 PM OVER HAULER HELPER 145 mg Fish Oil CAPS 2,000 mg 2,000 mg, Oral, Daily, First dose on Wed12/06/17 at 1645, Until DiscontinuedIndications:PVD (peripheral vascular disease) ([facility]) Given 12/07/2017 9:16 AM OVER HAULER HELPER 2,000 mg Given 12/06/2017 5:46 PM OVER HAULER HELPER 2,000 mg fluoxetine (PROZAC) capsule 40 mg 40 mg, Oral, Daily, First dose on Wed12/07/17 at 0900, Until DiscontinuedIndications:PVD (peripheral vascular disease) ([facility]) Given 12/07/2017 9:16 AM OVER HAULER HELPER 40 m g fluticasone (FLOVENT HFA) 110 MCG/ACT inhaler 1 puff 1 puff, Inhalation, 2 times daily, First dose on Wed12/06/17 at 2100, Until Discontinued, Therapeutic interchange for flunisolide inhaler (Aerospan)Indications:PVD (peripheral vascular disease) ([facility]) Given 12/07/2017 7:06 AM OVER HAULER HELPER 1 puff Given 12/06/2017 8:50 PM OVER HAULER HELPER 1 puff hydrocodone-acetaminophen (NORCO) 5-325 MG tablet 1 tablet 1 tablet, Oral, 2 times daily, First dose on Wed12/06/17 at 2100, Until Discontinued, Maximum dose of acetaminophen is 4000 mg from all sources in 24 hours.Indications:PVD (peripheral vascular disease) ([facility]) Given 12/07/2017 9:17 AM OVER HAULER HELPER 1 tablet Given 12/06/2017 9:01 PM OVER HAULER HELPER 1 tablet hydrocodone-acetaminophen (NORCO) 5-325 MG tablet [...] vascular disease) (CMS/HCC) Given 12/07/2017 9:16 AM OVER HAULER HELPER 30 m g losartan (COZAAR) tablet 100 mg 100 mg, Oral, Daily, First dose on Wed12/07/17 at 0900, Until DiscontinuedIndications:PVD (peripheral vascular disease) (CMS/HCC) Given 12/07/2017 9:17 AM OVER HAULER HELPER 100 mg metoprolol succinate (TOPROL-XL) tablet 25 mg 25 mg, Oral, Daily, First dose on Wed12/06/17 at 1645, Until DiscontinuedIndications:PVD (peripheral vascular disease) (CMS/HCC) Given 12/07/2017 9:16 AM OVER HAULER HELPER 25 m g Given 12/06/2017 5:47 PM OVER HAULER HELPER 25 mg morphine injection 1 mg 1 mg, Intravenous, Every 4 hours PRN, Moderate pain (Scale 4 - 7), Starting on Wed12/06/17 at 2257, Until Wed12/07/17 at 1011 Given 12/07/2017 5:25 AM OVER HAULER HELPER 1 mg morphine injection 2 mg 2 mg, Intravenous, Every 4 hours PRN, Severe pain (Scale 8 - 10), Starting on Wed12/06/17 at 2257, Until Wed12/07/17 at 1340 Given 12/06/2017 11:46 PM OVER HAULER HELPER 2 mg multi vitamin/minerals (I-ELIAZAR) I-ELIAZAR tablet 1 tablet 1 tablet, Oral, 2 times daily, First dose on Wed12/06/17 at 2100, Until DiscontinuedIndications:PVD (peripheral vascular disease) ([facility]/HCC) Given 12/06/2017 11:45 PM OVER HAULER HELPER 1 tablet ondansetron (ZOFRAN) injection 4 mg 4 mg, Intravenous, Every 4 hours PRN, Nausea, Vomiting, Starting on Wed12/06/17 at 0834, Until Wed12/06/17 at 1545, Pre-Op Given 12/06/2017 10:18 AM OVER HAULER HELPER 4 mg Right Arm pravastatin (PRAVACHOL) tablet 80 mg 80 mg, Oral, Nightly at bedtime, First dose on Wed12/06/17 at 2100, Until DiscontinuedIndications:PVD (peripheral vascular disease) (CMS/HCC) Given 12/06/2017 9:01 PM OVER HAULER HELPER 80 mg sodium chloride 0.9% infusion at 125 mL/hr, Intravenous, Continuous, Starting on Wed12/06/17 at 1645, Until Wed12/06/17 at 2244, Post-OpIndications:PVD (peripheral vascular disease) (CMS/HCC) New Bag 12/06/2017 10:20 PM OVER HAULER HELPER 125 mL/hr documented in this encounter Active and Recently Administered Medications Times are shown in OVER HAULER HELPER. Scheduled Medication Order 12/05/2017 12/06/2017 12/07/2017 amlodipine [...] RN) 917 (Given - Provider: Francesca Avalos, AODNAY) clopidogrel (PLAVIX) tablet 75 mg 75 mg, [...] (Aerospan) 2049 (Given - Provider: Rama Vasques, HIP HOP DANCER) 705 (Given - Provider: Marifer Negron, WIND ENERGY MECHANIC) hydrocodone-acetaminophen (NORCO) 5-325 MG tablet 1 tablet [...] (Given - Provid er: Francesca Avalos RN) metoprolol succinate (TOPROL-XL) tablet 25 mg 25 mg, Oral, Daily, First dose on Wed12/06/17 at 1645, Until Discontinued 1746 (Given - Provider: Neva Luis RN) 0916 (Given - Provider: Francesca Avalos RN) [...] 1340 documented in this encounter Care Teams College Sports Assistant Relationship Specialty Start Date End Date Deisi Andrews MD [address] [place] [address] [place] [address] PCP - General FAMILY PRACTICE 06/15/17 10/14/19 Asa Mcnamara MD [facility]. [id number] [place] [address] [place] Industrial Relations Manager CARDIOVASCULAR DISEASE 05/15/16 documented as of this encounter
--- OUTSIDE RECORDS SUMMARY | 2024-11-12 05:29 | XMS_ITS | Encounter Summary ---
Author Organization [facility] Address [facility]. [place], [place] [address] [place] [address] Care Team Providers Care Plate Shop Helper Name Role Phone Asa Mcnamara MD Unavailable [phone] Deisi Andrews MD Primary Care Provider [phone] Reason for Visit * Reason Onset Date Comments Refill Request 03/01/2018 metoprolol succi lula Encounter Details Date Type Department Care Team (Late st Contact Info) Description 03/01/2018 Telephone [facility], [facility] [address] [place] [address] Asa Mcnamara MD [facility]. [facility] [address] [place] [address] Refill Request (metoprolol succinate) Social History Tobacco Use Types Packs/Day Years Used Date Smoking Tobacco: Every Day Cigarettes Smokeless Tobacco: Never Comments:1 pk day Alcohol Use Standard Drinks/Week Comments No 0 (1 standard drink = 0.6 oz pur e alcohol) Comments Unknown Sex and Gender Information Value Date Recorded Sex Assigned at Female 12/06/2019 3:36 PM CORPORATE TRAVEL COORDINATOR Legal Sex Female 5:20 PM CDT Gender Identity Female 12/06/2019 3:36 PM CORPORATE TRAVEL COORDINATOR Sexual Orientation Straight 12/06/2019 3: 36 PM CORPORATE TRAVEL COORDINATOR Occupation Industry Job Start Date Job End Date Not on file Not on file Not on file Not on file documented as of this encounter Plan of Treatment Not on file documented as of this encounter Visit Diagnoses Not on filedocumented in this encounter Care Teams Plate Shop Helper Relationship Specialty Start Date End Date Deisi Andrews MD [address] [place] [address] [place] [address] PCP - General FAMILY PRACTICE 06/15/17 10/14/19 Asa Mcnamara MD [facility]. [facility] [address] [place] [address] [place] Crossbow Maker CARDIOVASCULAR DISEASE 05/15/16 documented as of this encounter
--- OUTSIDE RECORDS SUMMARY | 2024-11-12 05:29 | XMS_ITS | Encounter Summary ---
Author Organization [facility] Address [facility]6 [facility] [place] [address] [place] [address] Care Team Providers Care Hand Worker Name Role Phone Asa Mcnamara MD Unavailable [phone] Heber Huynh MD Primary Care Provider Unavailable Deisi Andrews MD Primary Care Provider [phone] Encounter Details Date Type Department Care Team (Late st Contact Info) Description 04/22/2017 Abstract [employer] Per[employer] [place], [place] [id number] Asa Mcnamara MD Three [facility]. [facility] [address] [place], [place] [id number] Social History Tobacco Use Types Packs/Day Years Used Date Smoking Tobacco: Every Day Cigarettes Smokeless Tobacco: Never Alcohol Use Standard Drinks/Week Comments No 0 (1 standard drink = 0.6 oz pur e alcohol) Comments Unknown Sex and Gender Information Value Date Recorded Sex Assigned at Female 12/06/2019 3:36 PM PATTERNMAKER PLASTER AND PLASTIC Legal Sex Female 5:20 PM CDT Gender Identity Female 12/06/2019 3:36 PM PATTERNMAKER PLASTER AND PLASTIC Sexual Orientation Straight 12/06/2019 3: 36 PM PATTERNMAKER PLASTER AND PLASTIC Occupation Industry Job Start Date Job End [...] - 99 mg/dL 04/22/2017 9:09 PM CDT [facility] ORDERS INTERFACE 04/22/2017 9:51 AM CDT 04/22/2017 9:09 PM CDT us Generic Conversion Md HUYNH POCT ORDERABLES - DEVIC E Final Result [facility] ORDERS INTERFACE US documented in this encounter Visit Diagnoses Diagnosis Peripheral vascular disease (CMS/HCC) Peripheral vascular disease, unspecified documented in this encounter Care Teams Hand Worker Relationship Specialty Start Date End Date Heber Huynh MD PCP - General 03/11/17 06/14/17 Deisi Andrews MD [address] [place] [address] [place] [address] PCP - General FAMILY PRACTICE 06/15/17 10/14/19 Asa Mcnamara MD [facility]. [facility] [address] [place] [address] [employer] [employer] Mortgage Agent CARDIOVASCULAR DISEASE 05/15/16 documented as of this encounter
--- OUTSIDE RECORDS SUMMARY | 2024-11-12 05:29 | XMS_ITS | Encounter Summary ---
Author Organization [facility] Address [facility]. [place], [place] [address] [place] [address] Care Team Providers Care Project Engineering Director Name Role Phone Dane Sullivan DO Primary Care Provider + [phone] Asa Mcnamara MD Unavailable [phone] Deisi Andrews MD Primary Care Provider [phone] Heber Adorno MD Primary Care Provider Unavailable Deisi Andrews MD Primary Care Provider [phone] Encounter Details Date Type Department Care Team (Latest Contact Info) Description 02/09/2017 Abstract [facility] Social History Tobacco Use Types Packs/Day Years Used Date Smoking Tobacco: Every Day Cigarettes Smokeless Tobacco: Never Comments:3 cig a day Alcohol Use Standard Drinks/Week Comments No 0 (1 standard drink = 0.6 oz pur e alcohol) Comments Unknown Sex and Gender Information Value Date Recorded Sex Assigned at Female 12/06/2019 3:36 PM SEO INTERN Legal Sex Female 5:20 PM CDT Gender Identity Female 12/06/2019 3:36 PM SEO INTERN Sexual Orientation Straight 12/06/2019 3: 36 PM SEO INTERN Occupation Industry Job Start Date Job End Date Not on file Not on file Not on file Not on file documented as of this encounter Plan of Treatment Not on file documented as of this encounter Visit Diagnoses Not on filedocumented in this encounter Care Teams Project Engineering Director Relationship Specialty Start Date End Date Dane Sullivan DO PCP - General FAMILY PRACTICE 05/15/16 02/11/17 Deisi Andrews MD [address] [place] [address] PCP - General FAMILY PRACTICE 02/13/17 03/10/17 Heber Adorno MD PCP - General 03/11/17 06/14/17 Deisi Andrews MD [address] [place] [address] PCP - General FAMILY PRACTICE 06/15/17 10/14/19 Asa Mcnamara MD [facility] [address] [place] [address] Stephen Product Development Chemist CARDIOVASCULAR DISEASE 05/15/16 documented as of this encounter
--- OUTSIDE RECORDS SUMMARY | 2024-11-12 05:30 | XMS_ITS | Encounter Summary ---
Author Organization [facility] Address [facility]6 [facility] [address] [place] [address] Care Team Providers Care Principal Clerk Name Role Phone Dane Sullivan Primary Care Provider [phone] Asa Mcnamara MD Unavailable [phone] Encounter Details Date Type Department Care Team (Late st Contact Info) Description 06/04/2016 Orders Only [facility] AT [address] [address] Asa Mcnamara MD [address] [address] Social History Tobacco Use Types Packs/Day Years Used Date Smoking Tobacco: Every Day Cigarettes Smokeless Tobacco: Never Alcohol Use Standard Drinks/Week Comments No 0 (1 standard drink = 0.6 oz pur e alcohol) Comments Unknown Sex and Gender Information Value Date Recorded Sex Assigned at Female 12/06/2019 3:36 PM GLASS PULVERIZER EQUIPMENT OPERATOR Legal Sex Female 5:20 PM CDT Gender Identity Female 12/06/2019 3:36 PM GLASS PULVERIZER EQUIPMENT OPERATOR Sexual Orientation Straight 12/06/2019 3: 36 PM GLASS PULVERIZER EQUIPMENT OPERATOR Occupation Industry Job Start Date [...] (06/04/2016 7:16 AM CDT) PREG SCREEN-SERUM NEGATIVE [facility] 06/04/2016 7:16 AM CDT 06/04/2016 7:20 AM CDT Asa Mcnamara MD LABORATORY Final Result Performing Organization Address [facility] Co de Phone Number [facility] [address] [place] [address], [place] [phone] * PROTIME/INR, VENOUS (06/04/2016 7:16 AM CDT) PROTIME 11.8 9.6 - 12.2 SEC [facility] INR 1.06 Recommended INR Therapeutic Goals: ??2.0-3.0 Routine Therapy ??2.5-3.5 Mechanical Prosthetic Valves (High Risk) ??3.0-4.0 Acute TN (to prevent Systemic Embolism) The INR is used only for patients on stable oral anticoagulant therapy. It makes no significant contribution to the diagnosis or treatment of patients whose Protime is prolonged for other reasons. [facility] 06/04/2016 7:16 AM CDT 06/04/2016 7:20 AM CDT us Asa Mcnamara MD LABORATORY Final Result Performing Organization Address [facility] Co de Phone Number [facility] [address] [place] [address], [place] [phone] documented in this encounter Visit Diagnoses Not on filedocumented in this encounter Care Teams Principal Clerk Relationship Specialty Start Date End Date Dane Sullivan DO PCP - General FAMILY PRACTICE 05/15/16 02/11/17 Asa Mcnamara MD [facility] [address] [place] [address] [facility] Attorney CARDIOVASCULAR DISEASE 05/15/16 documented as of this encounter
--- OUTSIDE RECORDS SUMMARY | 2024-11-12 05:30 | XMS_ITS | Encounter Summary ---
Author Organization [facility] Address [facility]6 [facility] [place], [place] [address] [place] [address] Care Team Providers Care Resource Development Manager Name Role Phone Dane Sullivan DO Primary Care Provider + [phone] Asa Mcnamara MD Unavailable [phone] Deisi Andrews MD Primary Care Provider [phone] Heber Adorno MD Primary Care Provider Unavailable Deisi Andrews MD Primary Care Provider [phone] Encounter Details Date Type Department Care Team (Latest Contact Info) Description 01/01/2017 Abstract [facility] Medical Group Social History Tobacco Use Types Packs/Day Years Used Date Smoking Tobacco: Every Day Cigarettes Smokeless Tobacco: Never Comments:3 cig a day Alcohol Use Standard Drinks/Week Comments No 0 (1 standard drink = 0.6 oz pur e alcohol) Comments Unknown Sex and Gender Information Value Date Recorded Sex Assigned at Female 12/06/2019 3:36 PM OFFICE CLINICIAN Legal Sex Female 5:20 PM CDT Gender Identity Female 12/06/2019 3:36 PM OFFICE CLINICIAN Sexual Orientation Straight 12/06/2019 3: 36 PM OFFICE CLINICIAN Occupation Industry Job Start Date Job End Date Not on file Not on file Not on file Not on file documented as of this encounter Plan of Treatment Not on file documented as of this encounter Visit Diagnoses Not on filedocumented in this encounter Care Teams Resource Development Manager Relationship Specialty Start Date End Date Dane Sullivan DO PCP - General FAMILY PRACTICE 05/15/16 02/11/17 Deisi Andrews MD [address] [place] [address] PCP - General FAMILY PRACTICE 02/13/17 03/10/17 Heber Adorno MD PCP - General 03/11/17 06/14/17 Deisi Andrews MD [address] [place] [address] PCP - General FAMILY PRACTICE 06/15/17 10/14/19 Asa Mcnamara MD [facility] [address] [place] [address] Stephen Vacuum Cleaner Assembler CARDIOVASCULAR DISEASE 05/15/16 documented as of this encounter
--- OUTSIDE RECORDS SUMMARY | 2024-11-12 05:30 | XMS_ITS | Encounter Summary ---
Author Organization [facility] Address [facility]6 [facility] [place] [address] [place] [address] Care Team Providers Care Rheologist Name Role Phone Dane Sullivan Primary Care Provider [phone] Asa Mcnamara MD Unavailable [phone] Reason for Visit * Reason Onset Date Comments Medication 12/31/2016 Cilostazol and P lavix Encounter Details Date Type Department Care Team (Late st Contact Info) Description 12/31/2016 Telephone [facility] AT [address] [address] Asa Mcnamara MD [address] [address] Medication (Cilostazol and Plavix) Social History Tobacco Use Types Packs/Day Years Used Date Smoking Tobacco: Every Day Cigarettes Smokeless Tobacco: Never Comments:3 cig a day Alcohol Use Standard Drinks/Week Comments No 0 (1 standard drink = 0.6 oz pur e alcohol) Comments Unknown Sex and Gender Information Value Date Recorded Sex Assigned at Female 12/06/2019 3:36 PM ASSOCIATE VICE PRESIDENT Legal Sex Female 5:20 PM CDT Gender Identity Female 12/06/2019 3:36 PM ASSOCIATE VICE PRESIDENT Sexual Orientation Straight 12/06/2019 3: 36 PM ASSOCIATE VICE PRESIDENT Occupation Industry Job Start Date Job End Date Not on file Not on file Not on file Not on file documented as of this encounter Progress Notes * Lm Buck, JOSE - 12/31/2016 2:05 PM CST Done, patient contacted, pharmacy contacted and med list updated. CIATE VICE PRESIDENT * Hari Rehman RN - 12/31/2016 1:52 PM CST According to Dr. Mcnamara's note from 08/12/17, she can stop the Plavix now since it has been more than 3 months since vascular intervention. She is to continue Cilostazol. Thank you. CIATE VICE PRESIDENT * JOSE Estrada - 12/31/2016 1:45 PM CST Ann Rody is calling wanting to know if she is supposed to continue taking both the Plavix and Cilostazol. Please adviseLm CIATE VICE PRESIDENT documented in this encounter Plan of Treatment Not on file documented as of this encounter Visit Diagnoses Not on filedocumented in this encounter Care Teams Rheologist Relationship Specialty Start Date End Date Dane Sullivan DO PCP - General FAMILY PRACTICE 05/15/16 02/11/17 Asa Mcnamara MD [facility] [address] [place] [address] [place] Paragliding Instructor CARDIOVASCULAR DISEASE 05/15/16 documented as of this encounter
--- OUTSIDE RECORDS SUMMARY | 2024-11-12 05:30 | XMS_ITS | Encounter Summary ---
Author Organization [facility] Address [facility]6 [facility] [place], [place] [address] [place] [address] Care Team Providers Care Air Crew Officer Name Role Phone Dane Sullivan DO Primary Care Provider + [phone] Asa Mcnamara MD Unavailable [phone] Deisi Andrews MD Primary Care Provider [phone] Heber Adorno MD Primary Care Provider Unavailable Deisi Andrews MD Primary Care Provider [phone] Encounter Details Date Type Department Care Team (Latest Contact Info) Description 11/12/2016 Abstract [facility] Medical [facility] Social History Tobacco Use Types Packs/Day Years Used Date Smoking Tobacco: Every Day Cigarettes Smokeless Tobacco: Never Comments:3 cig a day Alcohol Use Standard Drinks/Week Comments No 0 (1 standard drink = 0.6 oz pur e alcohol) Comments Unknown Sex and Gender Information Value Date Recorded Sex Assigned at Female 12/06/2019 3:36 PM AUTOMOTIVE TIRE TECHNICIAN Legal Sex Female 5:20 PM CDT Gender Identity Female 12/06/2019 3:36 PM AUTOMOTIVE TIRE TECHNICIAN Sexual Orientation Straight 12/06/2019 3: 36 PM AUTOMOTIVE TIRE TECHNICIAN Occupation Industry Job Start Date Job End Date Not on file Not on file Not on file Not on file documented as of this encounter Plan of Treatment Not on file documented as of this encounter Visit Diagnoses Not on filedocumented in this encounter Care Teams Air Crew Officer Relationship Specialty Start Date End Date Dane Sullivan DO PCP - General FAMILY PRACTICE 05/15/16 02/11/17 Deisi Andrews MD [address] [place] [address] PCP - General FAMILY PRACTICE 02/13/17 03/10/17 Heber Adorno MD PCP - General 03/11/17 06/14/17 Deisi Andrews MD [address] [place] [address] PCP - General FAMILY PRACTICE 06/15/17 10/14/19 Asa Mcnamara MD [facility] [address] [place] [address]criber CARDIOVASCULAR DISEASE 05/15/16 documented as of this encounter
--- OUTSIDE RECORDS SUMMARY | 2024-11-12 05:30 | XMS_ITS | Encounter Summary ---
Author Organization [facility] Address [facility]6 [facility]. [place], [place] [address] [place] [address] Care Team Providers Care Field Trainer Name Role Phone Dane Sullivan DO Primary Care Provider + [phone] Asa Mcnamara MD Unavailable [phone] Deisi Andrews MD Primary Care Provider [phone] Heber Adorno MD Primary Care Provider Unavailable Deisi Andrews MD Primary Care Provider [phone] Encounter Details Date Type Department Care Team (Latest Contact Info) Description 10/22/2016 Abstract [facility] Medical Group Social History Tobacco Use Types Packs/Day Years Used Date Smoking Tobacco: Every Day Cigarettes Smokeless Tobacco: Never Comments:3 cig a day Alcohol Use Standard Drinks/Week Comments No 0 (1 standard drink = 0.6 oz pur e alcohol) Comments Unknown Sex and Gender Information Value Date Recorded Sex Assigned at Female 12/06/2019 3:36 PM APPLICATIONS SUPPORT LEAD Legal Sex Female 5:20 PM CDT Gender Identity Female 12/06/2019 3:36 PM APPLICATIONS SUPPORT LEAD Sexual Orientation Straight 12/06/2019 3: 36 PM APPLICATIONS SUPPORT LEAD Occupation Industry Job Start Date Job End Date Not on file Not on file Not on file Not on file documented as of this encounter Plan of Treatment Not on file documented as of this encounter Visit Diagnoses Not on filedocumented in this encounter Care Teams Field Trainer Relationship Specialty Start Date End Date Dane Sullivan DO PCP - General FAMILY PRACTICE 05/15/16 02/11/17 Deisi Andrews MD [address] [place] [address] PCP - General FAMILY PRACTICE 02/13/17 03/10/17 Heber Adorno MD PCP - General 03/11/17 06/14/17 Deisi Andrews MD [address] [place] [address] PCP - General FAMILY PRACTICE 06/15/17 10/14/19 Asa Mcnamara MD [facility] [address] [place] [address] Stephen Plant Hr Manager CARDIOVASCULAR DISEASE 05/15/16 documented as of this encounter
--- OUTSIDE RECORDS SUMMARY | 2024-11-12 05:30 | XMS_ITS | Encounter Summary ---
Author Organization [facility] Address [facility]6 [facility] [place] [address] [place] [address] Care Team Providers Care Supervisor Research Shop Name Role Phone Dane Sullivan DO Primary Care Provider [phone] Asa Mcnamara MD Unavailable [phone] Encounter Details Date Type Department Care Team (Late st Contact Info) Description 07/01/2016 Orders Only [facility] AT [address] [address] Layla Quiles, [facility] Social History Tobacco Use Types Packs/Day Years Used Date Smoking Tobacco: Every Day Cigarettes Smokeless Tobacco: Never Alcohol Use Standard Drinks/Week Comments No 0 (1 standard drink = 0.6 oz pur e alcohol) Comments Unknown Sex and Gender Information Value Date Recorded Sex Assigned at Female 12/06/2019 3:36 PM BOTTLE CAPPING 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 Legal Sex Female 5:20 PM CDT Gender Identity Female 12/06/2019 3:36 PM BOTTLE CAPPING 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 Sexual Orientation Straight 12/06/2019 3: 36 PM BOTTLE CAPPING 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
--- OUTSIDE RECORDS SUMMARY | 2024-11-12 05:30 | XMS_ITS | Encounter Summary ---
Author Organization [facility] Address [facility]6 [facility] [place], [place] [address] [place] [address] Care Team Providers Care Blood Bank Laboratory Technologist Name Role Phone Dane Sullivan DO Primary Care Provider + [phone] Asa Mcnamara MD Unavailable [phone] Deisi Andrews MD Primary Care Provider [phone] Heber Adorno MD Primary Care Provider Unavailable Deisi Andrews MD Primary Care Provider [phone] Encounter Details Date Type Department Care Team (Latest Contact Info) Description 07/23/2016 Abstract [facility] Medical Group Social History Tobacco Use Types Packs/Day Years Used Date Smoking Tobacco: Every Day Cigarettes Smokeless Tobacco: Never Alcohol Use Standard Drinks/Week Comments No 0 (1 standard drink = 0.6 oz pur e alcohol) Comments Unknown Sex and Gender Information Value Date Recorded Sex Assigned at Female 12/06/2019 3:36 PM SENIOR RESTAURANT MANAGER Legal Sex Female 5:20 PM CDT Gender Identity Female 12/06/2019 3:36 PM SENIOR RESTAURANT MANAGER Sexual Orientation Straight 12/06/2019 3: 36 PM SENIOR RESTAURANT MANAGER 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 Not on file Not on file documented as of this encounter Plan of Treatment Not on file documented as of this encounter Visit Diagnoses Not on filedocumented in this encounter Care Teams Blood Bank Laboratory Technologist Relationship Specialty Start Date End Date Dane Sullivan DO PCP - General FAMILY PRACTICE 05/15/16 02/11/17 Deisi Andrews MD [address] [place] [address] PCP - General FAMILY PRACTICE 02/13/17 03/10/17 Heber Adorno MD PCP - General 03/11/17 06/14/17 Deisi Andrews MD [address] [place] [address] PCP - General FAMILY PRACTICE 06/15/17 10/14/19 Asa Mcnamara MD [facility] [address] [place] [address] [place] Clinical Specialty Rep CARDIOVASCULAR DISEASE 05/15/16 documented as of this encounter
--- OUTSIDE RECORDS SUMMARY | 2024-11-12 05:30 | XMS_ITS | Encounter Summary ---
Author Organization [facility] Address [facility] [place] [address] [place] [address] Care Team Providers Care Supervisor Forming And Tempering Name Role Phone Dane Sullivan DO Primary Care Provider [phone] Asa Mcnamara MD Unavailable [phone] Reason for Visit * Reason Onset Date Comments Results 08/26/2016 Encounter Details Date Type Department Care Team (Late st Contact Info) Description 08/26/2016 [facility]phone [facility] AT [address] [address] Katt Walter, RN Results Social History Tobacco Use Types Packs/Day Years Used Date Smoking Tobacco: Every Day Cigarettes Smokeless Tobacco: Never Comments:3 cig a day Alcohol Use Standard Drinks/Week Comments No 0 (1 standard drink = 0.6 oz pur e alcohol) Comments Unknown Sex and Gender Information Value Date Recorded Sex Assigned at Female 12/06/2019 3:36 PM NUT ROASTER Legal Sex Female 5:20 PM CDT Gender Identity Female 12/06/2019 3:36 PM NUT ROASTER Sexual Orientation Straight 12/06/2019 3: 36 PM NUT ROASTER Occupation Industry Job Start Date Job End [...] filedocumented in this encounter Care Teams Supervisor Forming And Tempering Relationship Specialty Start Date End Date Dane Sullivan DO PCP - General FAMILY PRACTICE 05/15/16 02/11/17 Asa Mcnamara MD [address] [address] Stephen Tobacco Buyer CARDIOVASCULAR DISEASE 05/15/16 documented as of this encounter
--- OUTSIDE RECORDS SUMMARY | 2024-11-12 05:30 | XMS_ITS | Encounter Summary ---
Author Organization [facility] Address [facility]. [place], [place] [address] [place] [address] Care Team Providers Care Resource Recovery Specialist Name Role Phone Dane Sullivan DO Primary Care Provider + [phone] Asa Mcnamara MD Unavailable [phone] Deisi Andrews MD Primary Care Provider [phone] Heber Adorno MD Primary Care Provider Unavailable Deisi Andrews MD Primary Care Provider [phone] Encounter Details Date Type Department Care Team (Latest Contact Info) Description 07/01/2016 Abstract [facility] Heber Adorno MD Social History Tobacco Use Types Packs/Day Years Used Date Smoking Tobacco: Every Day Cigarettes Smokeless Tobacco: Never Alcohol Use Standard Drinks/Week Comments No 0 (1 standard drink = 0.6 oz pur e alcohol) Comments Unknown Sex and Gender Information Value Date Recorded Sex Assigned at Female 12/06/2019 3:36 PM ASSEMBLER INSTALLER GENERAL Legal Sex Female 5:20 PM CDT Gender Identity Female 12/06/2019 3:36 PM ASSEMBLER INSTALLER GENERAL Sexual Orientation Straight 12/06/2019 3: 36 PM ASSEMBLER INSTALLER GENERAL 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 [address] Patient: RODY CRUZ [facility] Rec#: [id number] Birthdate: 1960 Admit/Svce Date: 07/01/2016 Disch Date: Attending Md: ASA MCNAMARA MD CHART DOCUMENT PREOPERATIVE DIAGNOSIS: POSTOPERATIVE DIAGNOSIS: SURGERY PERFORMED: DATE: 07/01/2016 SURGEON: ASA MCNAMARA M.D. RIBBING 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: GANGA GARCIA MD INDICATIONS: 1. Lifestyle limiting intermittent claudication. 2. Bilateral iliac disease. PROCEDURE: The patient was prepped and draped using aseptic techniques. Both groins were anesthetized using 1% lidocaine. Using ultrasound guidance, the right common femoral artery was cannulated. A 5-Burmese sheath was placed. A J-tipped wire was advanced into the aorta. A crossover catheter was advanced over this wire. The left common iliac artery was cannulated. Angiogram was performed which was subsequently used as roadmap to cannulate the left common femoral artery. A 7-Burmese 23 cm sheath was placed in the left femoral artery. The crossover catheter was now exchanged for a 5-Burmese pigtail catheter. Aortogram was performed in the [...] artery. Heparin was used for anticoagulation. The 5-Burmese sheath was exchanged for a 7-Burmese sheath in the right femoral artery. The [...] adequately treated, the guidewires were removed. The 7-Burmese sheath was secured to the skin. The [...] 07/03/2016 05:55 P ASA MCNAMARA M.D. A #[id number] P/jaret cc: Michelle ISLAS D.O. documented in this encounter Plan of Treatment Not on file documented as of this encounter Visit Diagnoses Not on filedocumented in this encounter Care Teams Resource Recovery Specialist Relationship Specialty Start Date End Date Dane Sullivan DO PCP - General FAMILY PRACTICE 05/15/16 02/11/17 Deisi Andrews MD [address] [place] [address] [place] [address] PCP - General FAMILY PRACTICE 02/13/17 03/10/17 Heber Adorno MD PCP - General 03/11/17 06/14/17 Deisi Andrews MD [address] [place] [address] [place] [address] PCP - General FAMILY PRACTICE 06/15/17 10/14/19 Asa Mcnamara MD [facility]. [facility] [address] [place] [address] [place] Cardiac Tech CARDIOVASCULAR DISEASE 05/15/16 documented as of this encounter
--- OUTSIDE RECORDS SUMMARY | 2024-11-12 05:30 | XMS_ITS | Encounter Summary ---
Author Organization [facility] Address [address] [facility]. [place], [place] [address] [place] [address] Care Team Providers Care Driver License Examiner Name Role Phone Dane Sullivan DO Primary Care Provider + [phone] Asa Mcnamara MD Unavailable [phone] Deisi Andrews MD Primary Care Provider [phone] Heber Adorno MD Primary Care Provider Unavailable Deisi Andrews MD Primary Care Provider [phone] Encounter Details Date Type Department Care Team (Late st Contact Info) Description 07/14/2016 Abstract [facility] Medical Group Family Medicine - [address] [phone] Dane Sullivan DO [address] [phone] Social History Tobacco Use Types Packs/Day Years Used Date Smoking Tobacco: Every Day Cigarettes Smokeless Tobacco: Never Alcohol Use Standard Drinks/Week Comments No 0 (1 standard drink = 0.6 oz pur e alcohol) Comments Unknown Sex and Gender Information Value Date Recorded Sex Assigned at Female 12/06/2019 3:36 PM GENERAL INTERNIST Legal Sex Female 5:20 PM CDT Gender Identity Female 12/06/2019 3:36 PM GENERAL INTERNIST Sexual Orientation Straight 12/06/2019 3: 36 PM GENERAL INTERNIST Occupation Industry Job Start Date Job End [...] and fell onto left arm Went to [place] and was xrays showed fracture of both [...] EVERY 4 TO 6 HOURS NEEDED; Therapy: [id number] to (Last Rx:[id number]) Requested for: 44Llm4461 Ordered 2. Joleen 180 MG TABS; Therapy: (Recorded:60Ifp8860) to Recorded 3. Ambien 5 MG Oral Tablet; Therapy: (Recorded:[id number]) to Recorded 4. AmLODIPine Besylate 5 MG Oral Tablet; TAKE 1 TABLET DAILY DIRECTED; Therapy: 25Sep2015 to (Evaluate:22Sep2016) Requested for: 97Vzb2173; Last Rx:[id number] Ordered 5. Aspirin Low Dose TABS; Therapy: (Recorded:03Mqu1119) to Recorded 6. Cilostazol 100 MG Oral Tablet; Therapy: (Recorded:78Ifd7674) to Recorded 7. Cyclobenzaprine HCl - 10 MG Oral Tablet; TAKE ONE TABLET BY MOUTH ONCE TO TWICE DAILY NEEDED; Therapy: 27Nov2015 to (Evaluate:93Nad9839) Requested for: 16Apr2016; Last Rx:16Apr2016 Ordered 8. FLUoxetine HCl - 20 MG Oral Capsule; TAKE 1 CAPSULE DAILY; Therapy: (Recorded:74Ypy7055) to Recorded 9. Isosorbide Mononitrate ER 30 MG Oral Tablet Extended Release 24 Hour; Therapy: (Recorded:78Ehs9874) to Recorded 10. Losartan Potassium 100 MG Oral Tablet; TAKE ONE TABLET BY MOUTH ONCE DAILY; Therapy: 10Mar2016 to (Evaluate:05Dec2016) Requested for: 01Apr2016; Last Rx:10Mar2016 Ordered 11. MetFORMIN HCl - 500 MG Oral Tablet; TAKE ONE TABLET BY MOUTH TWICE DAILY WITH MEALS; Therapy: 10Mar2016 to (Evaluate:27Vmu2805) Requested for: 01Apr2016; Last Rx:10Mar2016 Ordered 12. Metoprolol Succinate ER 25 MG Oral Tablet Extended Release 24 Hour; Therapy: (Recorded:96Guw3407) to Recorded 13. Montelukast Sodium 10 MG Oral Tablet; TAKE 1 TABLET DAILY Requested for: 01Apr2016; Last Rx:[id number] Ordered 14. Nitrostat 0.4 MG Sublingual Tablet Sublingual; Therapy: (Recorded:[id number]) to Recorded 15. Percocet 5-325 MG Oral Tablet; Therapy: (Recorded:99Xdt6647) to Recorded 16. Pravastatin Sodium 40 MG Oral Tablet; TAKE ONE TABLET BY MOUTH ONCE DAILY; Therapy: 16May2015 to (Evaluate:20Rsf8400) Requested for: 01Apr2016; Last Rx:12Feb2016 Ordered 17. PriLOSEC 20 MG Oral Capsule Delayed Release; Therapy: (Recorded:84Car1009) to Recorded 18. Qvar 40 MCG/ACT Inhalation Aerosol Solution; INHALE ONE PUFF BY MOUTH TWICE DAILY; Therapy: 27Mar2016 to (Evaluate:23Sep2016) Requested for: 01Apr2016; Last Rx:27Mar2016 Ordered 19. Ventolin HFA 108 (90 Base) MCG/ACT Inhalation Aerosol Solution; INHALE TWO PUFFS BY MOUTH EVERY 4 TO 6 HOURS NEEDED; Therapy: 68Uvz8243 to (Evaluate:22Feb2016) Requested for: 01Apr2016; Last Rx:32Mwz7554 Ordered 20. Xanax 1 MG Oral Tablet; Therapy: (Recorded:70Slc5224) to Recorded Allergies 1. Halcion 2. Haldol 3. Penicillins 4. Risperidone and Related Immunizations Influenza --- Series1: 03Yzb1565 Vitals Recorded: 48Xwl1823 09:53AM Heart Rate 113 Systolic 147 Diastolic [...] Anxiety; ADAM = N; Verified Transmission to [facility]; Last Updated By: Ezra aBez; 07/14/2016 10:11:04 AM Discussion/Summary Pt has pre-op [...] Dane Sullivan D.O.; Jul 14 2016 10:20AM GENERAL INTERNIST (Author) documented in this encounter Plan of Treatment Not on file documented as of this encounter Visit Diagnoses Not on filedocumented in this encounter Care Teams Driver License Examiner Relationship Specialty Start Date End Date Dane Sullivan DO PCP - General FAMILY PRACTICE 05/15/16 02/11/17 Deisi Andrews MD [address] [place] [address] PCP - General FAMILY PRACTICE 02/13/17 03/10/17 Heber Adorno MD PCP - General 03/11/17 06/14/17 Deisi Andrews MD [address] [place] [address] PCP - General FAMILY PRACTICE 06/15/17 10/14/19 Asa Mcnamara MD [facility]. [facility] [address] [place] [address] Stephen Director Career Services CARDIOVASCULAR DISEASE 05/15/16 documented as of this encounter
--- OUTSIDE RECORDS SUMMARY | 2024-11-12 05:30 | XMS_ITS | Encounter Summary ---
Author Organization [facility] Address [facility] [place] [address] [place] [address] Care Team Providers Care Lead Former Name Role Phone Dane Sullivan Primary Care Provider [phone] Asa Mcnamara MD Unavailable [phone] Encounter Details Date Type Department Care Team (Late st Contact Info) Description 07/01/2016 Orders Only [facility] AT [address] [address] Asa Mcnamara MD [address] [address] Social History Tobacco Use Types Packs/Day Years Used Date Smoking Tobacco: Every Day Cigarettes Smokeless Tobacco: Never Alcohol Use Standard Drinks/Week Comments No 0 (1 standard drink = 0.6 oz pur e alcohol) Comments Unknown Sex and Gender Information Value Date Recorded Sex Assigned at Female 12/06/2019 3:36 PM RELIEF MAN Legal Sex Female 5:20 PM CDT Gender Identity Female 12/06/2019 3:36 PM RELIEF MAN Sexual Orientation Straight 12/06/2019 3: 36 PM RELIEF MAN Occupation Industry Job Start Date Job [...] GONADOTROPINHCG QL (07/01/2016 7:06 AM CDT) Pathologist [facility] PREG SCREEN-SERUM NEGATIVE [facility] 07/01/2016 7:06 AM CDT 07/01/2016 7:12 AM CDT Asa Mcnamara MD LABORATORY Final Result [facility] [address] [place] [address], [place] [phone] * (ABNORMAL) BASIC METABOLIC PANEL (07/01/2016 7:06 AM CDT) [facility] GLUCOSE 161(H) 70 - 99 mg/dL [facility] BUN 25(H) 8 - 23 mg/dL [facility] CREATININE S/P/B 0.74 0.60 - 1.10 mg/dL [facility] SODIUM S/P/B 135(L) 136 - 145 mmol/L [facility] POTASSIUM S/P/B 4.4 3.5 - 5.1 mmol/L [facility] CHLORIDE S/P/B 100 98 - 107 mmol/L [facility] CO2 22 22 - 29 mmol/L [facility] CALCIUM S/P/B 9.0 8.6 - 10.2 mg/dL [facility] ANION GAP 17 8 - 20 [facility] EGFR NON-AFR. AMER. >60 >60 mL/min/1. 73m'2 [facility] EGFR AFR. AMER. >60 NOTE: eGFR is not calculated for patients <18 years of age. This is an estimated GFR (CKD EPI) and should not be used for calculating drug doses. >60 mL/min/1. 73m'2 [facility] 07/01/2016 7:06 AM CDT 07/01/2016 7:12 AM CDT Asa Mcnamara MD LABORATORY Final Result Performing Organization Address [facility] de Phone Number [facility] [address] [place] [address], * PROTIME/INR, VENOUS (07/01/2016 7:06 AM CDT) PROTIME 11.1 9.6 - 12.2 SEC [facility] INR 1.00 Recommended INR Therapeutic Goals: ??2.0-3.0 Routine Therapy ??2.5-3.5 Mechanical Prosthetic Valves (High Risk) ??3.0-4.0 Acute SC (to prevent Systemic Embolism) The INR is used only for patients on stable oral anticoagulant therapy. It makes no significant contribution to the diagnosis or treatment of patients whose Protime is prolonged for other reasons. [facility] 07/01/2016 7:06 AM CDT 07/01/2016 7:12 AM CDT us Asa Mcnamara MD LABORATORY Final Result Performing Organization Address [facility] Co de Phone Number [facility] [address] [place] [phone], * (ABNORMAL) CBC W/DIFF AUTOMATED (07/01/2016 7:06 AM CDT) WBC 17.0(H) 4.8 - 10.8 X10'3/uL [facility] RBC 4.86 4.20 - 5.40 X10'6/uL [facility] HGB 13.6 12.0 - 16.0 g/dL [facility] HCT 40.4 38.0 - 48.0 % [facility] MCV 83.1 81.0 - 99.0 fL [facility] MCH 28.0 27.0 - 31.0 pg [facility] MCHC 33.7 32.0 - 36.0 g/dL [facility] RDW 13.3 11.5 - 14.5 % [facility] PLT 275 130 - 400 X10'3/uL [facility] MPV 10.0 9.3 - 12.2 fL [facility] DIFFERENTIAL TYPE AUTOMATED [facility] NEUTROPHILS % 77.8(H) 43.0 - 65.0 % [facility] LYMPHOCYTES % 13.9(L) 20.0 - 46.0 % [facility] MONOCYTES % 6.3 5.0 - 12.0 % [facility] EOSINOPHILS 0.9(L) 1.0 - 3.0 % [facility] BASOPHILS 0.4 0.0 - 1.0 % [facility] IMMATURE GRANS % 0.7 0.0 - 1.0 % [facility] 07/01/2016 7:06 AM CDT 07/01/2016 7:12 AM CDT Asa Mcnamara MD LABORATORY Final Result [facility] [address] [place] [address], documented in this encounter Visit Diagnoses Not on filedocumented in this encounter Care Teams Lead Former Relationship Specialty Start Date End Date Dane Sullivan DO PCP - General FAMILY PRACTICE 05/15/16 02/11/17 Asa Mcnamara MD [facility]. [place] [address] [place] [address] [place] Napper Tender CARDIOVASCULAR DISEASE 05/15/16 documented as of this encounter
--- OUTSIDE RECORDS SUMMARY | 2024-11-12 05:30 | XMS_ITS | Encounter Summary ---
Author Organization [facility] Address [address] [facility]. [place], [place] [address] [place] [address] Care Team Providers Care Computer Mechanic Name Role Phone Dane Sullivan Primary Care Provider + [phone] Asa Mcnamara MD Unavailable [phone] Deisi Andrews MD Primary Care Provider [phone] Heber Adorno MD Primary Care Provider Unavailable Deisi Andrews MD Primary Care Provider [phone] Neva Holden MD Primary Care Provider [phone] Deisi Andrews MD Primary Care Provider [phone] Neva Holden MD Primary Care Provider [phone] Encounter Details Date Type Department Care Team (Late st Contact Info) Description 05/21/2016 Abstract [facility] AT [address] [address] Rafael Thakur MA Social History Tobacco Use Types Packs/Day Years Used Date Smoking Tobacco: Every Day Cigarettes Smokeless Tobacco: Never Alcohol Use Standard Drinks/Week Comments No 0 (1 standard drink = 0.6 oz pur e alcohol) Comments Unknown Sex and Gender Information Value Date Recorded Sex Assigned at Female 12/06/2019 3:36 PM APPLIANCE LINE ASSEMBLER Legal Sex Female 5:20 PM CDT Gender Identity Female 12/06/2019 3:36 PM APPLIANCE LINE ASSEMBLER Sexual Orientation Straight 12/06/2019 3: 36 PM APPLIANCE LINE ASSEMBLER Occupation Industry Job Start Date Job [...] on filedocumented in this encounter Care Teams Computer Mechanic Relationship Specialty Start Date End Date Dane Sullivan DO PCP - General FAMILY PRACTICE 05/15/16 02/11/17 Deisi Andrews MD [address] [place] [address] PCP - General FAMILY PRACTICE 02/13/17 03/10/17 Heber Adorno MD PCP - General 03/11/17 06/14/17 Deisi Andrews MD [address] [place] [address] PCP - General FAMILY PRACTICE 06/15/17 10/14/19 Neva Holden MD [facility] [address] [address] PCP - General FAMILY PRACTICE 10/15/19 12/05/19 Deisi Andrews MD [address] [place] [address] PCP - General FAMILY PRACTICE 12/06/19 02/13/20 Nev[facility] [address] [place] [address] PCP - General FAMILY PRACTICE 02/14/20 Asa Mcnamara MD [facility]. [facility] [address] [place] [address] Coleman Skating Rink Manager CARDIOVASCULAR DISEASE 05/15/16 documented as of this encounter
--- OUTSIDE RECORDS SUMMARY | 2024-11-12 05:30 | XMS_ITS | Encounter Summary ---
Author Organization [facility] Address [facility]6 [facility]. [place], [place] [address] [place] [address] Care Team Providers Care Dialysis Tech Name Role Phone Dane Sullivan Primary Care Provider + [phone] Asa Mcnamara MD Unavailable [phone] Deisi Andrews MD Primary Care Provider [phone] Heber Huynh MD Primary Care Provider Unavailable Deisi Andrews MD Primary Care Provider [phone] Encounter Details Date Type Department Care Team (Late st Contact Info) Description 06/04/2016 Abstract [facility] Plug Shaper Hand [place], [place] [id number] Asa Mcnamara MD [facility]. [facility] [address] [place], [place] [id number] Social History Tobacco Use Types Packs/Day Years Used Date Smoking Tobacco: Every Day Cigarettes Smokeless Tobacco: Never Alcohol Use Standard Drinks/Week Comments No 0 (1 standard drink = 0.6 oz pur e alcohol) Comments Unknown Sex and Gender Information Value Date Recorded Sex Assigned at Female 12/06/2019 3:36 PM MULTI NEEDLE 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 Legal Sex Female 5:20 PM CDT Gender Identity Female 12/06/2019 3:36 PM MULTI NEEDLE 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 Sexual Orientation Straight 12/06/2019 3: 36 PM MULTI NEEDLE 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 Occupation Industry Job Start Date [...] - 12.2 SEC 06/04/2016 7:38 AM CDT [facility] INR 1.06 06/04/2016 7:38 AM CDT [facility] Comment: Recommended INR Therapeutic Goals: ??2.0-3.0 Routine Therapy ??2.5-3.5 Mechanical Prosthetic Valves (High Risk) ??3.0-4.0 Acute AR (to prevent Systemic Embolism) The INR is used only for patients on stable oral anticoagulant therapy. It makes no significant contribution to the diagnosis or treatment of patients whose Protime is prolonged for other reasons. 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 [address] [place] [address] Ashley Remote Sensing Scientist CARDIOVASCULAR DISEASE 05/15/16 documented as of this encounter
--- OUTSIDE RECORDS SUMMARY | 2024-11-12 05:30 | XMS_ITS | Encounter Summary ---
Author Organization [facility] Address [facility] [place] [address] [place] [address] Care Team Providers Care Friction Paint Machine Tender Name Role Phone Dane Sullivan Primary Care Provider [phone] Asa Mcnamara MD Unavailable [phone] Reason for Visit * Reason Onset Date Comments Procedure 06/05/2016 Encounter Details Date Type Department Care Team (Late st Contact Info) Description 06/05/2016 Telephone [id number] AT [address] [address] Asa Mcnamara MD [address] [address] Procedure Social History Tobacco Use Types Packs/Day Years Used Date Smoking Tobacco: Every Day Cigarettes Smokeless Tobacco: Never Alcohol Use Standard Drinks/Week Comments No 0 (1 standard drink = 0.6 oz pur e alcohol) Comments Unknown Sex and Gender Information Value Date Recorded Sex Assigned at Female 12/06/2019 3:36 PM BUILDING CONSTRUCTION CONTRACTOR Legal Sex Female 5:20 PM CDT Gender Identity Female 12/06/2019 3:36 PM BUILDING CONSTRUCTION CONTRACTOR Sexual Orientation Straight 12/06/2019 3: 36 PM BUILDING CONSTRUCTION CONTRACTOR Occupation Industry Job Start Date Job End [...] on filedocumented in this encounter Care Teams Friction Paint Machine Tender Relationship Specialty Start Date End Date Dane Sullivan DO PCP - General FAMILY PRACTICE 05/15/16 02/11/17 Asa Mcnamara MD [facility] [address] [place] [address] [facility] Customer Service CARDIOVASCULAR DISEASE 05/15/16 documented as of this encounter
--- OUTSIDE RECORDS SUMMARY | 2024-11-12 05:30 | XMS_ITS | Encounter Summary ---
Author Organization [facility] Address [facility]. [place], [place] [address] [place] [address] Care Team Providers Care Medical Affairs Leader Name Role Phone Dane Sullivan DO Primary Care Provider + [phone] Asa Mcnamara MD Unavailable [phone] Deisi Andrews MD Primary Care Provider [phone] Heber Adorno MD Primary Care Provider Unavailable Deisi Andrews MD Primary Care Provider [phone] Encounter Details Date Type Department Care Team (Latest Contact Info) Description 12/04/2016 Abstract [facility] Social History Tobacco Use Types Packs/Day Years Used Date Smoking Tobacco: Every Day Cigarettes Smokeless Tobacco: Never Comments:3 cig a day Alcohol Use Standard Drinks/Week Comments No 0 (1 standard drink = 0.6 oz pur e alcohol) Comments Unknown Sex and Gender Information Value Date Recorded Sex Assigned at Female 12/06/2019 3:36 PM LAYOUT OPERATOR Legal Sex Female 5:20 PM CDT Gender Identity Female 12/06/2019 3:36 PM LAYOUT OPERATOR Sexual Orientation Straight 12/06/2019 3: 36 PM LAYOUT OPERATOR Occupation Industry Job Start Date Job End Date Not on file Not on file Not on file Not on file documented as of this encounter Plan of Treatment Not on file documented as of this encounter Visit Diagnoses Not on filedocumented in this encounter Care Teams Medical Affairs Leader Relationship Specialty Start Date End Date Dane Sullivan DO PCP - General FAMILY PRACTICE 05/15/16 02/11/17 Deisi Andrews MD [address] [place] [address] PCP - General FAMILY PRACTICE 02/13/17 03/10/17 Hbeer Adorno MD PCP - General 03/11/17 06/14/17 Deisi Andrews MD [address] [place] [address] PCP - General FAMILY PRACTICE 06/15/17 10/14/19 Asa Mcnamara MD [facility] [address] [place] [address] Stephen Medical Lab Specialist CARDIOVASCULAR DISEASE 05/15/16 documented as of this encounter
--- OUTSIDE RECORDS SUMMARY | 2024-11-12 05:30 | XMS_ITS | Encounter Summary ---
Author Organization [facility] Address [id number]. [place], [place] [address] [place] [address] Care Team Providers Care Bevel Gear Generator Operator Name Role Phone SullivanDane rowley Gricel FLORES Primary Care Provider + [phone] Asa Mcnamara MD Unavailable [phone] Deisi Andrews MD Primary Care Provider [phone] Heber Adorno MD Primary Care Provider Unavailable Deisi Andrews MD Primary Care Provider [phone] Encounter Details Date Type Department Care Team (Late st Contact Info) Description 06/25/2016 Abstract [facility] Interventional [facility] Management Center [address] [place], [place] [id number] Lorelei Norton MD Three [facility] [address] [place], [place] [id number] Social History Tobacco Use Types Packs/Day Years Used Date Smoking Tobacco: Every Day Cigarettes Smokeless Tobacco: Never Alcohol Use Standard Drinks/Week Comments No 0 (1 standard drink = 0.6 oz pur e alcohol) Comments Unknown Sex and Gender Information Value Date Recorded Sex Assigned at Female 12/06/2019 3:36 PM RANGE MECHANIC Legal Sex Female 5:20 PM CDT Gender Identity Female 12/06/2019 3:36 PM RANGE MECHANIC Sexual Orientation Straight 12/06/2019 3: 36 PM RANGE MECHANIC Occupation Industry Job Start Date Job [...] - 99 mg/dL 06/25/2016 11:31 AM CDT [facility] ORDERS INTERFACE 06/25/2016 11:2 9 AM CDT 06/25/2016 11:31 AM CDT us Generic Vivi Adorno MD POCT ORDERABLES - DEVIC E Final Result Performing Organization Address City/State/[facility] Co de Phone Number [facility] ORDERS INTERFACE US documented in this encounter Visit Diagnoses Diagnosis Primary osteoarthritis of both knees Primary localized osteoarthrosis, lower leg documented in this encounter Care Teams Bevel Gear Generator Operator Relationship Specialty Start Date End Date Dane Sullivan DO PCP - General FAMILY PRACTICE 05/15/16 02/11/17 Deisi Andrews MD [address] [address] PCP - General FAMILY PRACTICE 02/13/17 03/10/17 Heber Adorno MD PCP - General 03/11/17 06/14/17 Deisi Andrews MD [address] [place] [address] PCP - General FAMILY PRACTICE 06/15/17 10/14/19 Asa Mcnamara MD [address] [address] Stephen Laborer Prestressed Concrete CARDIOVASCULAR DISEASE 05/15/16 documented as of this encounter
--- OUTSIDE RECORDS SUMMARY | 2024-11-12 05:30 | XMS_ITS | Encounter Summary ---
Author Organization [facility] Address [address] [facility]. [place], [place] [address] [place] [address] Care Team Providers Care Wall Crane Operator Name Role Phone Tere Monae DO Primary Care Provider + [phone] Asa Mcnamara MD Unavailable [phone] Deisi Andrews MD Primary Care Provider [phone] Heber Adorno MD Primary Care Provider Unavailable Tere Monae DO Primary Care Provider + [phone] Tere Monae DO Primary Care Provider + [phone] Deisi Andrews MD Primary Care Provider [phone] Encounter Details Date Type Department Care Team (Latest Contact Info) Description 04/22/2016 Abstract [facility] Heber Adorno MD Social History Tobacco Use Types Packs/Day Years Used Date Smoking Tobacco: Never Assessed Comments Unknown Sex and Gender Information Value Date Recorded Sex Assigned at Female 12/06/2019 3:36 PM TRAVEL DIRECTOR Legal Sex Female 5:20 PM CDT Gender Identity Female 12/06/2019 3:36 PM TRAVEL DIRECTOR Sexual Orientation Straight 12/06/2019 3: 36 PM TRAVEL DIRECTOR documented as of this encounter Progress Notes * Tere Monae DO - 04/22/2016 9:15 AM CDT [place] [id number] Patient: ARNOLD CRUZ [facility] Rec#: [id number] Birthdate: 1960 Admit/Svce Date: 04/17/2016 Disch Date: Attending Md: ASA MCNAMARA MD CHART DOCUMENT ARTERIAL DUPLEX IMAGING BILATERAL LOWER EXTREMITY VASCULAR LAB Pat.Name: ARNOLD CRUZ Pat.ID: [id number] .Date: 04/17/2016 Refer.MD: TERE MONAE MD Exam [...] significant flow limiting lesions. MEASUREMENTS: DOPPLER Left DIRECTOR OF HEMOPHILIA DIRECTOR OF HEMOPHILIA PSV 127 cm/s Left Prox Profunda Prox [...] Tib Fili Trunk 101 cm/s Left Prox LOCKSTITCH POCKET SETTER Prox LOCKSTITCH POCKET SETTER PSV 74 cm/s Left Dist LOCKSTITCH POCKET SETTER Dist LOCKSTITCH POCKET SETTER PSV 108 cm/s Left Prox Fili A Prox Fili A PSV 46 cm/s Left Prox BHUMI Prox BHUMI PSV 56 cm/s Left Dist BHUMI Dist BHUMI PSV 105 cm/s Right DIRECTOR OF HEMOPHILIA DIRECTOR OF HEMOPHILIA PSV 96 cm/s Right Prox Profunda Prox [...] Tib Fili Trunk 76 cm/s Right Prox LOCKSTITCH POCKET SETTER Prox LOCKSTITCH POCKET SETTER PSV 74 cm/s Right Dist LOCKSTITCH POCKET SETTER Dist LOCKSTITCH POCKET SETTER PSV 74 cm/s Right Prox Fili A [...] on filedocumented in this encounter Care Teams Wall Crane Operator Relationship Specialty Start Date End Date Tere Monae DO PCP - General FAMILY PRACTICE 05/15/16 02/11/17 Deisi Andrews MD [address] [place] [address] [place] [address] PCP - General FAMILY PRACTICE 02/13/17 03/10/17 Heber Adorno MD PCP - General 03/11/17 06/14/17 Tere Monae DO PCP - General 05/04/16 05/14/16 Tere Monae DO PCP - General 04/17/16 05/03/16 Deisi Andrews MD [address] [place] [address] [place] [address] PCP - General FAMILY PRACTICE 06/15/17 10/14/19 Asa Mcnamara MD [facility]. [facility] [address] [place] [address] [place] Boatswain Mate CARDIOVASCULAR DISEASE 05/15/16 documented as of this encounter
--- OUTSIDE RECORDS SUMMARY | 2024-11-12 05:30 | XMS_ITS | Encounter Summary ---
Author Organization [facility] Address [facility]. [place], [place] [address] [place] [address] Care Team Providers Care Cessation Systems Outreach Specialist Name Role Phone SullivanDane rowley Gricel FLORES Primary Care Provider + [phone] Asa Mcnamara MD Unavailable [phone] Deisi Andrews MD Primary Care Provider [phone] Heber Huynh MD Primary Care Provider Unavailable Deisi Andrews MD Primary Care Provider [phone] Encounter Details Date Type Department Care Team (Late st Contact Info) Description 06/30/2016 Abstract [facility] Interventional Pain Management Center [place], [place] [id number] Lorelei Norton MD Three [facility] [address] [place], [place] [id number] Social History Tobacco Use Types Packs/Day Years Used Date Smoking Tobacco: Every Day Cigarettes Smokeless Tobacco: Never Alcohol Use Standard Drinks/Week Comments No 0 (1 standard drink = 0.6 oz pur e alcohol) Comments Unknown Sex and Gender Information Value Date Recorded Sex Assigned at Female 12/06/2019 3:36 PM WOODWORKER Legal Sex Female 5:20 PM CDT Gender Identity Female 12/06/2019 3:36 PM WOODWORKER Sexual Orientation Straight 12/06/2019 3: 36 PM WOODWORKER Occupation Industry Job Start Date Job End [...] - 99 mg/dL 06/30/2016 12:[address] [facility] ORDERS INTERFACE 06/30/2016 9:35 AM CDT 06/30/2016 12:40 PM CDT us Generic Conversion Md [facility] POCT ORDERABLES - DEVIC E Final Result [facility] ORDERS INTERFACE US documented in this encounter Visit Diagnoses Diagnosis Radiculopathy of lumbar region Thoracic or lumbosacral neuritis or radiculitis, unspecified documented in this encounter Care Teams Cessation Systems Outreach Specialist Relationship Specialty Start Date End Date Dane Sullivan DO PCP - General FAMILY PRACTICE 05/15/16 02/11/17 Deisi Andrews MD [address] [place] [address] PCP - General FAMILY PRACTICE 02/13/17 03/10/17 Md Generic MD Vivi PCP - General 03/11/17 06/14/17 Deisi Andrews MD [address] [place] [address] PCP - General FAMILY PRACTICE 06/15/17 10/14/19 Asa Mcnamara MD [facility] [address] [place] [address] Stephen Frame Wirer CARDIOVASCULAR DISEASE 05/15/16 documented as of this encounter
--- OUTSIDE RECORDS SUMMARY | 2024-11-12 05:30 | XMS_ITS | Encounter Summary ---
Author Organization [facility] Address [address] [facility]. [place], [place] [address] [place] [address] Care Team Providers Care Pearl Fisherman Name Role Phone Dane Sullivan DO Primary Care Provider + [phone] Asa Mcnamara MD Unavailable [phone] Deisi Andrews MD Primary Care Provider [phone] Heber Huynh MD Primary Care Provider Unavailable Deisi Andrews MD Primary Care Provider [phone] Encounter Details Date Type Department Care Team (Late st Contact Info) Description 09/02/2016 Abstract [facility] [address] Dane Sullivan DO [address] [facility] [address] [place] [address] Social History Tobacco Use Types Packs/Day Years Used Date Smoking Tobacco: Every Day Cigarettes Smokeless Tobacco: Never Comments:3 cig a day Alcohol Use Standard Drinks/Week Comments No 0 (1 standard drink = 0.6 oz pur e alcohol) Comments Unknown Sex and Gender Information Value Date Recorded Sex Assigned at Female 12/06/2019 3:36 PM EMAIL MARKETING MANAGER Legal Sex Female 5:20 PM CDT Gender Identity Female 12/06/2019 3:36 PM EMAIL MARKETING MANAGER Sexual Orientation Straight 12/06/2019 3: 36 PM EMAIL MARKETING MANAGER Occupation Industry Job Start Date Job [...] - 4.20 mIU/mL 09/02/2016 9:17 AM CDT [facility] Comment:FREE T4 NOT INDICATE D SERUM OR PLASMA SPECIMEN / Unknown 09/02/2016 8:13 AM CDT 09/02/2016 8:41 AM CDT us Generic Conversion Md [facility] LABORATORY Final R esult [facility] [address] [place] [address], [place] [phone] * (ABNORMAL) COMPREHENSIVE METABOLIC PANEL (09/02/2016 8:13 AM CDT) GLUCOSE 133(H) 70 - 99 mg/dL 09/02/2016 9:17 AM CDT [facility] BUN 13 8 - 23 mg/dL 09/02/2016 9:17 AM CDT [facility] CREATININE S/P/B 0.68 0.60 - 1.10 mg/dL 09/02/2016 9:17 AM CDT [facility] SODIUM S/P/B 144 136 - 145 mmol/L 09/02/2016 9:17 AM CDT [facility] POTASSIUM S/P/B 3.8 3.5 - 5.1 mmol/L 09/02/2016 9:17 AM CDT [facility] CHLORIDE S/P/B 103 98 - 107 mmol/L 09/02/2016 9:17 AM CDT [facility] CO2 26 22 - 29 mmol/L 09/02/2016 9:17 AM CDT [facility] BILIRUBIN TOTAL S/P/B 0.3 0.2 - 1.2 mg/dL 09/02/2016 9:17 AM CDT [facility] CALCIUM S/P/B 8.7 8.6 - 10.2 mg/dL 09/02/2016 9:17 AM CDT [facility] ALKALINE PHOSPHATASE S/P/B 102 35 - 104 U/L 09/02/2016 9:17 AM CDT [facility] AST 14 0 - 32 U/L 09/02/2016 9:17 AM T [facility] TOTAL PROTEIN S/P/B 7.0 6.4 - 8.3 g/dL 09/02/2016 9:17 AM T [facility] ALBUMIN S/P/B 4.2 3.5 - 5.2 g/dL 09/02/2016 9:17 AM T [facility] ALT 13 0 - 33 U/L 09/02/2016 9:17 AM CDT [facility] GLOBULIN 2.8 2.3 - 3.6 g/dL 09/02/2016 9:17 AM T [facility] A/G RATIO 1.5 1.0 - 2.0 09/02/2016 9:17 AM T [facility] ANION GAP 19 8 - 20 09/02/2016 9:17 AM T [facility] EGFR NON-AFR. AMER. >60 >60 mL/min/1.7 3m'2 09/02/2016 9:17 AM CDT [facility] EGFR AFR. AMER. >60 >60 mL/min/1.7 3m'2 09/02/2016 9:17 AM CDT [facility] Comment: NOTE: eGFR is not calculated for patients <18 years of age. This is an estimated GFR (CKD EPI) and should not be used for calculating drug doses. 09/02/2016 8:13 AM CDT 09/02/2016 8:41 AM CDT us Generic Conversion Md [facility]ORAT[facility] Final R esult [facility] [address] [place] [address], * (ABNORMAL) CBC W/DIFF AUTOMATED (09/02/2016 8:13 AM CDT) WBC 9.4 4.8 - 10.8 X10'3/uL 09/02/2016 8:58 AM CDT [facility] RBC 4.72 4.20 - 5.40 X10'6/uL 09/02/2016 8:58 AM CDT [facility] HGB 12.8 12.0 - 16.0 g/dL 09/02/2016 8:58 AM CDT [facility] HCT 39.5 38.0 - 48.0 % 09/02/2016 8:58 AM CDT [facility] MCV 83.7 81.0 - 99.0 fL 09/02/2016 8:58 AM CDT [facility] MCH 27.1 27.0 - 31.0 pg 09/02/2016 8:58 AM CDT [facility] MCHC 32.4 32.0 - 36.0 g/dL 09/02/2016 8:58 AM CDT [facility] RDW 13.6 11.5 - 14.5 % 09/02/2016 8:58 AM CDT [facility] PLT 214 130 - 400 X10'3/uL 09/02/2016 8:58 AM CDT [facility] MPV 9.7 9.3 - 12.2 fL 09/02/2016 8:58 AM CDT [facility] DIFFERENTIAL TYPE AUTOMATED 09/02/2016 8:58 AM CDT [facility] NEUTROPHILS % 66.7(H) 43.0 - 65.0 % 09/02/2016 8:58 AM CDT [facility] LYMPHOCYTES % 21.1 20.0 - 46.0 % 09/02/2016 8:58 AM CDT [facility] MONOCYTES % 8.0 5.0 - 12.0 % 09/02/2016 8:58 AM CDT [facility] EOSINOPHILS 3.4(H) 1.0 - 3.0 % 09/02/2016 8:58 AM CDT [facility] BASOPHILS 0.3 0.0 - 1.0 % 09/02/2016 8:58 AM CDT [facility] IMMATURE GRANS % 0.5 0.0 - 1.0 % 09/02/2016 8:58 AM CDT [facility] 09/02/2016 8:13 AM CDT 09/02/2016 8:41 AM CDT us Generic Conversion Md [facility] LABORAT[facility] Final R esult [facility] [address] [place] [address], documented in this encounter Visit Diagnoses Diagnosis Noninfective gastroenteritis and colitis Other and unspecified noninfectious gastroenteritis and colitis documented in this encounter Care Teams Pearl Fisherman Relationship Specialty Start Date End Date NateDane DO PCP - General FAMILY PRACTICE 05/15/16 02/11/17 Deisi Andrews MD [address] [place] [address] PCP - General FAMILY PRACTICE 02/13/17 03/10/17 Heber Huynh MD PCP - General 03/11/17 06/14/17 Deisi Andrews MD [address] [place] [address] PCP - General FAMILY PRACTICE 06/15/17 10/14/19 Asa Mcnamara MD [address] [facility]. [facility] [address] [place] [address] Stephen Sales Engineer [employer] CARDIOVASCULAR DISEASE 05/15/16 documented as of this encounter
--- OUTSIDE RECORDS SUMMARY | 2024-11-12 05:30 | XMS_ITS | Encounter Summary ---
Author Organization [facility] Address [address] [place] [address] [place] [address] Care Team Providers Care Application Support Manager Name Role Phone Dane Sullivan Primary Care Provider [phone] Asa Mcnamara MD Unavailable [phone] Reason for Visit * Reason Comments Follow Up testing Chest Pain Claudication Encounter Details Date Type Department Care Team (Late st Contact Info) Description 05/20/2016 2:00 PM CDT Office Visit [facility] [address] [address] Asa Mcnamara MD [address] [address] Follow Up (testing); Chest Pain; Claudication Social History Tobacco Use Types Packs/Day Years Used Date Smoking Tobacco: Every Day Cigarettes Smokeless Tobacco: Never Alcohol Use Standard Drinks/Week Comments No 0 (1 standard drink = 0.6 oz pur e alcohol) Comments Unknown Sex and Gender Information Value Date Recorded Sex Assigned at Female 12/06/2019 3:36 PM EVAPORATOR REPAIRER Legal Sex Female 5:20 PM CDT Gender Identity Female 12/06/2019 3:36 PM EVAPORATOR REPAIRER Sexual Orientation Straight 12/06/2019 3: 36 PM EVAPORATOR REPAIRER Occupation Industry Job Start Date Job End [...] statin. 8. Type II diabetes mellitus. 9. [id number]-[id number] history of smoking. 10. Likely COPD. 11. [...] type II diabetes mellitus, hypertension, dyslipidemia and 08-vwcy-[id number] history of smoking. She returns for scheduled [...] (see comment) ??? Penicillins Redness ??? Resperal-Dm [Nxw-Wb-Lls-Propyl Lqfgeb-Gfn-Rifxnqwho] Unknown Past Medical History Diagnosis Date ??? [...] CDT) GLUCOSE 105(H) 70 - 99 mg/dL [facility] BUN 16 8 - 23 mg/dL [facility] CREATININE S/P/B 0.65 0.60 - 1.10 mg/dL [facility] SODIUM S/P/B 140 136 - 145 mmol/L [facility] POTASSIUM S/P/B 4.4 3.5 - 5.1 mmol/L [facility] CHLORIDE S/P/B 102 98 - 107 mmol/L [facility] CO2 23 22 - 29 mmol/L [facility] CALCIUM S/P/B 9.2 8.6 - 10.2 mg/dL [facility] ANION GAP 19 8 - 20 [facility] EGFR NON-AFR. AMER. >60 >60 mL/min/1.7 3m'2 [facility] EGFR AFR. AMER. >60 >60 mL/min/1.7 3m'2 [facility] Comment: NOTE: eGFR is not calculated for patients <18 years of age. This is an estimated GFR (CKD EPI) and should not be used for calculating drug doses. 05/25/2016 12:3 0 PM CDT 05/25/2016 4:38 PM CDT us Asa Mcnamara MD LABORATORY Final Result [facility] [address] [place] [address], [place] [phone] * (ABNORMAL) CBC W/DIFF AUTOMATED (05/25/2016 12:30 PM CDT) WBC 11.6(H) 4.8 - 10.8 X10'3/uL [facility] RBC 4.69 4.20 - 5.40 X10'6/uL [facility] HGB 13.0 12.0 - 16.0 g/dL [facility] HCT 40.6 38.0 - 48.0 % [facility] MCV 86.6 81.0 - 99.0 fL [facility] MCH 27.7 27.0 - 31.0 pg [facility] MCHC 32.0 32.0 - 36.0 g/dL [facility] RDW 13.4 11.5 - 14.5 % [facility] PLT 245 130 - 400 X10'3/uL [facility] MPV 10.2 9.3 - 12.2 fL [facility] DIFFERENTIAL TYPE AUTOMATED [facility] NEUTROPHILS % 63.3 43.0 - 65.0 % [facility] LYMPHOCYTES % 24.9 20.0 - 46.0 % [facility] MONOCYTES % 8.0 5.0 - 12.0 % [facility] EOSINOPHILS 3.0 1.0 - 3.0 % [facility] BASOPHILS 0.4 0.0 - 1.0 % [facility] IMMATURE GRANS % 0.4 0.0 - 1.0 % [facility] 05/25/2016 12:3 0 PM CDT 05/25/2016 4:38 PM CDT us Asa Mcnamara MD LABORATORY Final Result [facility] [address] [place], [place] [address] [place] [phone] documented in this encounter Visit Diagnoses Diagnosis Preoperative testing- Primary Preoperative examination, unspecified PVD (peripheral vascular disease) (CMS/HCC) Peripheral vascular disease, unspecified Claudication (CMS/HCC) Peripheral vascular disease, unspecified HTN (hypertension) Unspecified essential hypertension documented in this encounter Care Teams Application Support Manager Relationship Specialty Start Date End Date Dane Sullivan DO PCP - General FAMILY PRACTICE 05/15/16 02/11/17 Asa Mcnamara MD [place] [id number] [place] [address] [address] Attendant CARDIOVASCULAR DISEASE 05/15/16 documented as of this encounter
--- OUTSIDE RECORDS SUMMARY | 2024-11-12 05:30 | XMS_ITS | Encounter Summary ---
Author Organization [facility] Address [address] [facility] [place], [place] [address] [place] [address] Care Team Providers Care Jeep Mechanic Name Role Phone Dane Sullivan DO Primary Care Provider + [phone] Asa Mcnamara MD Unavailable [phone] Deisi Andrews MD Primary Care Provider [phone] , Generic Conversion Primary Care Provider Unavailable Dane Sullivan DO Primary Care Provider + [phone] Dane Sullivan DO Primary Care Provider + [phone] Deisi Andrews MD Primary Care Provider [phone] Encounter Details Date Type Department Care Team (Late st Contact Info) Description 04/17/2016 Abstract [facility] CON[facility] [address] [place], [place] [id number] Asa Mcnamara MD Three [facility]. [facility] [address] [place], [place] [id number] Social History Tobacco Use Types Packs/Day Years Used Date Smoking Tobacco: Never Assessed Comments Unknown Sex and Gender Information Value Date Recorded Sex Assigned at Female 12/06/2019 3:36 PM COMBINATION WELDER APPRENTICE Legal Sex Female 5:20 PM CDT Gender Identity Female 12/06/2019 3:36 PM COMBINATION WELDER APPRENTICE Sexual Orientation Straight 12/06/2019 3: 36 PM COMBINATION WELDER APPRENTICE documented as of this encounter Plan of Treatment Not on file documented as of this encounter Visit Diagnoses Diagnosis Shortness of breath documented in this encounter Care Teams Jeep Mechanic Relationship Specialty Start Date End Date Dane Sullivan DO PCP - General FAMILY PRACTICE 05/15/16 02/11/17 Deisi Andrews MD [address] [place] [address] PCP - General FAMILY PRACTICE 02/13/17 03/10/17 Heber Adorno MD PCP - General 03/11/17 06/14/17 Dane Sullivan DO PCP - General 05/04/16 05/14/16 Dane Sullivan DO PCP - General 04/17/16 05/03/16 Deisi Andrews MD [address] [place] [address] [place] [address] PCP - General FAMILY PRACTICE 06/15/17 10/14/19 Asa Mcnamara MD [facility]. [facility] [address] [place] [address] [employer] Mirror Fabrication Supervisor CARDIOVASCULAR DISEASE 05/15/16 documented as of this encounter
--- OUTSIDE RECORDS SUMMARY | 2024-11-12 05:30 | XMS_ITS | Encounter Summary ---
Author Organization [facility] Address [address] [facility] [place] [address] [place] [address] Care Team Providers Care Bead Wrapper Name Role Phone Dane Sullivan Primary Care Provider [phone] Asa Mcnamara MD Unavailable [phone] Encounter Details Date Type Department Care Team (Late st Contact Info) Description 05/27/2016 Orders Only [facility] AT [address] [address] Asa Mcnamara MD [address] [address] Social History Tobacco Use Types Packs/Day Years Used Date Smoking Tobacco: Every Day Cigarettes Smokeless Tobacco: Never Alcohol Use Standard Drinks/Week Comments No 0 (1 standard drink = 0.6 oz pur e alcohol) Comments Unknown Sex and Gender Information Value Date Recorded Sex Assigned at Female 12/06/2019 3:36 PM VICE PRESIDENT OF OPERATIONS Legal Sex Female 5:20 PM CDT Gender Identity Female 12/06/2019 3:36 PM VICE PRESIDENT OF OPERATIONS Sexual Orientation Straight 12/06/2019 3: 36 PM VICE PRESIDENT OF OPERATIONS Occupation Industry Job Start Date Job End [...] CDT) GLUCOSE 105(H) 70 - 99 mg/dL [facility] BUN 16 8 - 23 mg/dL [facility] CREATININE S/P/B 0.65 0.60 - 1.10 mg/dL [facility] SODIUM S/P/B 140 136 - 145 mmol/L [facility] POTASSIUM S/P/B 4.4 3.5 - 5.1 mmol/L [facility] CHLORIDE S/P/B 102 98 - 107 mmol/L [facility] CO2 23 22 - 29 mmol/L [facility] CALCIUM S/P/B 9.2 8.6 - 10.2 mg/dL [facility] ANION GAP 19 8 - 20 [facility] EGFR NON-AFR. AMER. >60 >60 mL/min/1.7 3m'2 [facility] EGFR AFR. AMER. >60 >60 mL/min/1.7 3m'2 [facility] Comment: NOTE: eGFR is not calculated for patients <18 years of age. This is an estimated GFR (CKD EPI) and should not be used for calculating drug doses. 05/25/2016 12:3 0 PM CDT 05/25/2016 4:38 PM CDT us Asa Mcnamara MD LABORATORY Final Result [facility] [address] [place] [address], * (ABNORMAL) CBC W/DIFF AUTOMATED (05/25/2016 12:30 PM CDT) WBC 11.6(H) 4.8 - 10.8 X10'3/uL [facility] RBC 4.69 4.20 - 5.40 X10'6/uL [facility] HGB 13.0 12.0 - 16.0 g/dL [facility] HCT 40.6 38.0 - 48.0 % [facility] MCV 86.6 81.0 - 99.0 fL [facility] MCH 27.7 27.0 - 31.0 pg [facility] MCHC 32.0 32.0 - 36.0 g/dL [facility] RDW 13.4 11.5 - 14.5 % [facility] PLT 245 130 - 400 X10'3/uL [facility] MPV 10.2 9.3 - 12.2 fL [facility] DIFFERENTIAL TYPE AUTOMATED [facility] NEUTROPHILS % 63.3 43.0 - 65.0 % [facility] LYMPHOCYTES % 24.9 20.0 - 46.0 % [facility] MONOCYTES % 8.0 5.0 - 12.0 % [facility] EOSINOPHILS 3.0 1.0 - 3.0 % [facility] BASOPHILS 0.4 0.0 - 1.0 % [facility] IMMATURE GRANS % 0.4 0.0 - 1.0 % [facility] 05/25/2016 12:3 0 PM CDT 05/25/2016 4:38 PM CDT Asa Mcnamara MD LABORATORY Final Result [facility] [address] [place] [address], documented in this encounter Visit Diagnoses Diagnosis Preoperative testing Preoperative examination, unspecified PVD (peripheral vascular disease) (CMS/HCC) Peripheral vascular disease, unspecified Claudication (CMS/HCC) Peripheral vascular disease, unspecified HTN (hypertension) Unspecified essential hypertension documented in this encounter Care Teams Bead Wrapper Relationship Specialty Start Date End Date Dane Sullivan DO PCP - General FAMILY PRACTICE 05/15/16 02/11/17 Asa Mcnamara MD [facility]. [facility] [address] [place] [address] Rombauer Storm Chaser CARDIOVASCULAR DISEASE 05/15/16 documented as of this encounter
--- OUTSIDE RECORDS SUMMARY | 2024-11-12 05:30 | XMS_ITS | Encounter Summary ---
Author Organization [facility] Address [facility] [facility] [place] [address] [place] [address] Care Team Providers Care Sole Rounding Machine Operator Name Role Phone Tere Monae Primary Care Provider [phone] Asa Mcnamara MD Unavailable [phone] Encounter Details Date Type Department Care Team (Late st Contact Info) Description 08/05/2016 Orders Only [facility] [address] [place] [address] Asa Mcnamara MD [place] [address] [place] [address] Social History Tobacco Use Types Packs/Day Years Used Date Smoking Tobacco: Every Day Cigarettes Smokeless Tobacco: Never Alcohol Use Standard Drinks/Week Comments No 0 (1 standard drink = 0.6 oz pur e alcohol) Comments Unknown Sex and Gender Information Value Date Recorded Sex Assigned at Female 12/06/2019 3:36 PM ROSS CARRIER DRIVER Legal Sex Female 5:20 PM CDT Gender Identity Female 12/06/2019 3:36 PM ROSS CARRIER DRIVER Sexual Orientation Straight 12/06/2019 3: 36 PM ROSS CARRIER DRIVER Occupation Industry Job Start Date Job [...] AM CDT Narrative 08/05/2016 12:00 AM CDT ?[id number] DUPLEX IMAGING ? VASCULAR LAB Pat.Name: ??RODY CRUZ ? Pat.ID: ?[id number] ? St.Date: ?? 08/05/2016 ? Refer.MD: ??TERE [...] Procedure Note Heber Adorno MD - 08/06/2016 [id number] DUPLEX IMAGING VASCULAR LAB Pat.Name: RODY CRUZ Pat.ID: [id number] St.Date: 08/05/2016 Refer.MD: TERE MONAE DO Exam [...] on filedocumented in this encounter Care Teams Sole Rounding Machine Operator Relationship Specialty Start Date End Date Tere Monae DO PCP - General FAMILY PRACTICE 05/15/16 02/11/17 Asa Mcnamara MD [facility]. [facility] [address] [place] [address] [place] Administrative Services Officer CARDIOVASCULAR DISEASE 05/15/16 documented as of this encounter
--- OUTSIDE RECORDS SUMMARY | 2024-11-12 05:30 | XMS_ITS | Encounter Summary ---
Author Organization [facility] Address [facility]. [place], [place] [address] [place] [address] Care Team Providers Care Tailor Men'S Ready To Wear Name Role Phone Dane Sullivan DO Primary Care Provider + [phone] Asa Mcnamara MD Unavailable [phone] Deisi Andrews MD Primary Care Provider [phone] Heber Adorno MD Primary Care Provider Unavailable Deisi Andrews MD Primary Care Provider [phone] Encounter Details Date Type Department Care Team (Latest Contact Info) Description 08/25/2016 Abstract [facility] Group Heber Adorno MD Social History Tobacco Use Types Packs/Day Years Used Date Smoking Tobacco: Every Day Cigarettes Smokeless Tobacco: Never Comments:3 cig a day Alcohol Use Standard Drinks/Week Comments No 0 (1 standard drink = 0.6 oz pur e alcohol) Comments Unknown Sex and Gender Information Value Date Recorded Sex Assigned at Female 12/06/2019 3:36 PM SOLAR CONSULTANT Legal Sex Female 5:20 PM CDT Gender Identity Female 12/06/2019 3:36 PM SOLAR CONSULTANT Sexual Orientation Straight 12/06/2019 3: 36 PM SOLAR CONSULTANT Occupation Industry Job Start Date Job End Date Not on file Not on file Not on file Not on file documented as of this encounter Progress Notes * Dane Sullivan DO - 08/25/2016 6:30 PM CDT [place] [address] Patient: RODY CRUZ [facility] Rec#: [id number] Birthdate: 1960 Admit/Svce Date: 08/25/2016 Disch Date: Attending Md: ASA MCNAMARA MD CHART DOCUMENT CAROTID DUPLEX IMAGING VASCULAR LAB Pat.Name: RODY CRUZ [facility].ID: [id number] .Date: 08/25/2016 Exam Time: 10:06:00 AM Study [...] on filedocumented in this encounter Care Teams Tailor Men'S Ready To Wear Relationship Specialty Start Date End Date Dane Sullivan DO PCP - General FAMILY PRACTICE 05/15/16 02/11/17 Deisi Andrews MD [address] [place] [address] PCP - General FAMILY PRACTICE 02/13/17 03/10/17 Heber Adorno MD PCP - General 03/11/17 06/14/17 Deisi Andrews MD [address] [place] [address] PCP - General FAMILY PRACTICE 06/15/17 10/14/19 Asa Mcnamara MD [facility]. [facility] [address] [place] [address] Stephen Drawer In Stitch Bonding Machine CARDIOVASCULAR DISEASE 05/15/16 documented as of this encounter
--- OUTSIDE RECORDS SUMMARY | 2024-11-12 05:30 | XMS_ITS | Encounter Summary ---
Author Organization [facility] Address [facility]. [place], [place] [address] [place] [address] Care Team Providers Care Basin Cleaner Name Role Phone Dane Sullivan DO Primary Care Provider + [phone] Asa Mcnamara MD Unavailable [phone] Deisi Andrews MD Primary Care Provider [phone] Heber Adorno MD Primary Care Provider Unavailable Deisi Andrews MD Primary Care Provider [phone] Encounter Details Date Type Department Care Team (Latest Contact Info) Description 12/08/2016 Abstract [facility] Medical Group Social History Tobacco Use Types Packs/Day Years Used Date Smoking Tobacco: Every Day Cigarettes Smokeless Tobacco: Never Comments:3 cig a day Alcohol Use Standard Drinks/Week Comments No 0 (1 standard drink = 0.6 oz pur e alcohol) Comments Unknown Sex and Gender Information Value Date Recorded Sex Assigned at Female 12/06/2019 3:36 PM DRAW 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 Legal Sex Female 5:20 PM CDT Gender Identity Female 12/06/2019 3:36 PM DRAW 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 Sexual Orientation Straight 12/06/2019 3: 36 PM DRAW 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 Occupation Industry Job Start Date Job End Date Not on file Not on file Not on file Not on file documented as of this encounter Plan of Treatment Not on file documented as of this encounter Visit Diagnoses Not on filedocumented in this encounter Care Teams Basin Cleaner Relationship Specialty Start Date End Date Dane Sullivna DO PCP - General FAMILY PRACTICE 05/15/16 02/11/17 Deisi Andrews MD [address] [place] [address] PCP - General FAMILY PRACTICE 02/13/17 03/10/17 Heber Adorno MD PCP - General 03/11/17 06/14/17 Deisi Andrews MD [address] [place] [address] PCP - General FAMILY PRACTICE 06/15/17 10/14/19 Asa Mcnamara MD [facility] [address] [place] [address] Stephen Taxi Truck Driver CARDIOVASCULAR DISEASE 05/15/16 documented as of this encounter
--- OUTSIDE RECORDS SUMMARY | 2024-11-12 05:30 | XMS_ITS | Encounter Summary ---
Author Organization [facility] Address [facility]. [place], [place] [address] [place] [address] Care Team Providers Care Scientific Technical Writer Name Role Phone Dane Sullivan DO Primary Care Provider + [phone] Asa Mcnamara MD Unavailable [phone] Deisi Andrews MD Primary Care Provider [phone] Heber Adorno MD Primary Care Provider Unavailable Deisi Andrews MD Primary Care Provider [phone] Encounter Details Date Type Department Care Team (Latest Contact Info) Description 05/20/2016 Abstract [facility] Medical Group Md Generic MD Vivi Social History Tobacco Use Types Packs/Day Years Used Date Smoking Tobacco: Every Day Cigarettes Smokeless Tobacco: Never Alcohol Use Standard Drinks/Week Comments No 0 (1 standard drink = 0.6 oz pur e alcohol) Comments Unknown Sex and Gender Information Value Date Recorded Sex Assigned at Female 12/06/2019 3:36 PM LEAD ASSEMBLER Legal Sex Female 5:20 PM CDT Gender Identity Female 12/06/2019 3:36 PM LEAD ASSEMBLER Sexual Orientation Straight 12/06/2019 3: 36 PM LEAD ASSEMBLER 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 [address] [address] [place] [address] Chief Complaint: Follow Up - testing; Chest Pain; and Claudication Recommendations/Plan: ASSESSMENT: 1. Atypical chest pain. 2. Lifestyle limiting intermittent claudication. 3. Dyspnea on exertion. 4. Bilateral carotid artery disease, left carotid endarterectomy in 2014. 5. History of stroke. 6. Hypertension, overall, well controlled. 7. Dyslipidemia on statin. 8. Type II diabetes mellitus. 9. 21-coyx-udil history of smoking. 10. Likely COPD. 11. [...] It is my pleasure to participate in [facility] care. Further recommendations will be based on findings of vascular angiogram. Thank you for the consultation. History of Present Illness: Ms. Zaidi is a pleasant 55-year-old female. She has history of type II diabetes mellitus, hypertension, dyslipidemia and 85-[id number]-[id number] history of smoking. She returns for scheduled [...] (see comment) . Penicillins Redness . Resperal-Dm [Nmz-Ym-Blq-Propyl Fduyfa-Hwa-Hxojlouby] Unknown Past Medical History Diagnosis Date . [...] activity and Recommended eating a balanced diet. ASSEMBLER documented in this encounter Plan of Treatment Not on file documented as of this encounter Visit Diagnoses Not on filedocumented in this encounter Care Teams Scientific Technical Writer Relationship Specialty Start Date End Date Dane Sullivan DO PCP - General FAMILY PRACTICE 05/15/16 02/11/17 Deisi Andrews MD [address] [place] [address] PCP - General FAMILY PRACTICE 02/13/17 03/10/17 Heber Adorno MD PCP - General 03/11/17 06/14/17 Deisi Andrews MD [address] [place] [address] PCP - General FAMILY PRACTICE 06/15/17 10/14/19 Asa Mcnamara MD [address] [address] Stephen Trench Pipe Layer Helper CARDIOVASCULAR DISEASE 05/15/16 documented as of this encounter
--- OUTSIDE RECORDS SUMMARY | 2024-11-12 05:30 | XMS_ITS | Encounter Summary ---
Author Organization [facility] Address [address] [facility]. [place], [place] [address] [place] [address] Care Team Providers Care Stem Teacher Name Role Phone Tere Monae DO Primary Care Provider + [phone] Asa Mcnamara MD Unavailable [phone] Deisi Andrews MD Primary Care Provider [phone] Heber Adorno MD Primary Care Provider Unavailable Tere Monae DO Primary Care Provider + [phone] Tere Monae DO Primary Care Provider + [phone] Deisi Andrews MD Primary Care Provider [phone] Encounter Details Date Type Department Care Team (Latest Contact Info) Description 04/19/2016 Abstract [facility] Medical Group Md Generic MD Vivi Social History Tobacco Use Types Packs/Day Years Used Date Smoking Tobacco: Never Assessed Comments Unknown Sex and Gender Information Value Date Recorded Sex Assigned at Female 12/06/2019 3:36 PM CORE CHECKER Legal Sex Female 5:20 PM CDT Gender Identity Female 12/06/2019 3:36 PM CORE CHECKER Sexual Orientation Straight 12/06/2019 3: 36 PM CORE CHECKER documented as of this encounter Progress Notes * Tere Monae DO - 04/19/2016 6:30 PM CDT [place] [address] Patient: RODY CRUZ [facility] Rec#: [id number] Birthdate: 1960 Admit/Svce Date: 04/17/2016 Disch Date: Attending Md: ASA MCNAMARA MD CHART DOCUMENT ARTERIAL DOPPLER - [facility] BILATERAL LOWER EXTREMITY VASCULAR LAB Pat.Name: RODY CRUZ Pat.ID: [id number] .Date: 04/17/2016 Refer.MD: TERE MONAE MD Exam [...] on filedocumented in this encounter Care Teams Stem Teacher Relationship Specialty Start Date End Date Tere Monae DO PCP - General FAMILY PRACTICE 05/15/16 02/11/17 Deisi Andrews MD [address] [place] [address] [place] [address] PCP - General FAMILY PRACTICE 02/13/17 03/10/17 Heber Adorno MD PCP - General 03/11/17 06/14/17 Tere Monae DO PCP - General 05/04/16 05/14/16 Tere Monae DO PCP - General 04/17/16 05/03/16 Deisi Andrews MD [address] [place] [address] [place] [address] PCP - General FAMILY PRACTICE 06/15/17 10/14/19 Asa Mcnamara MD [facility] [address] [place] [address] [place] Solar Panel Technician CARDIOVASCULAR DISEASE 05/15/16 documented as of this encounter
--- OUTSIDE RECORDS SUMMARY | 2024-11-12 05:30 | XMS_ITS | Encounter Summary ---
Author Organization [facility] Address [address] [facility]. [place], [place] [address] [place] [address] Care Team Providers Care Wrecking Car Driver Name Role Phone Dane Sullivan DO Primary Care Provider + [phone] Asa Mcnamara MD Unavailable [phone] Deisi Andrews MD Primary Care Provider [phone] Heber Adorno MD Primary Care Provider Unavailable Dane Sullivan DO Primary Care Provider + [phone] Deisi Andrews MD Primary Care Provider [phone] Encounter Details Date Type Department Care Team (Late st Contact Info) Description 05/04/2016 Abstract [facility] [place] [id number] Lorelei Norton MD [facility] [address] [place], [place] [id number] Social History Tobacco Use Types Packs/Day Years Used Date Smoking Tobacco: Never Assessed Comments Unknown Sex and Gender Information Value Date Recorded Sex Assigned at Female 12/06/2019 3:36 PM NATIONAL SALES DIRECTOR Legal Sex Female 5:20 PM CDT Gender Identity Female 12/06/2019 3:36 PM NATIONAL SALES DIRECTOR Sexual Orientation Straight 12/06/2019 3: 36 PM NATIONAL SALES DIRECTOR documented as of this encounter Plan of Treatment Not on file documented as of this encounter Visit Diagnoses Diagnosis Radiculopathy of lumbar region Thoracic or lumbosacral neuritis or radiculitis, unspecified documented in this encounter Care Teams Wrecking Car Driver Relationship Specialty Start Date End Date Dane Sullivan DO PCP - General FAMILY PRACTICE 05/15/16 02/11/17 Deisi Andrews MD [address] [place] [address] PCP - General FAMILY PRACTICE 02/13/17 03/10/17 Heber Adorno MD PCP - General 03/11/17 06/14/17 Dane Sullivan DO PCP - General 05/04/16 05/14/16 Deisi Andrews MD [address] [place] [address] PCP - General FAMILY PRACTICE 06/15/17 10/14/19 Asa Mcnamara MD [facility]. [facility] [address] [place] [address] Stephen Laundry Pricing Clerk CARDIOVASCULAR DISEASE 05/15/16 documented as of this encounter
--- OUTSIDE RECORDS SUMMARY | 2024-11-12 05:30 | XMS_ITS | Encounter Summary ---
Author Organization [facility] Address [address] [facility] [place] [address] [place] [address] Care Team Providers Care Strawberry Grower Name Role Phone Dane Sullivan Primary Care Provider [phone] Asa Mcnamara MD Unavailable [phone] Reason for Visit * Reason Onset Date Comments Refill Request 11/06/2016 Nitrostat Encounter Details Date Type Department Care Team (Late st Contact Info) Description 11/06/2016 Telephone [facility] [address] [address] Asa Mcnamara MD [address] [address] Refill Request (Nitrostat) Social History Tobacco Use Types Packs/Day Years Used Date Smoking Tobacco: Every Day Cigarettes Smokeless Tobacco: Never Comments:3 cig a day Alcohol Use Standard Drinks/Week Comments No 0 (1 standard drink = 0.6 oz pur e alcohol) Comments Unknown Sex and Gender Information Value Date Recorded Sex Assigned at Female 12/06/2019 3:36 PM CONTACT CENTER CONSULTANT Legal Sex Female 5:20 PM CDT Gender Identity Female 12/06/2019 3:36 PM CONTACT CENTER CONSULTANT Sexual Orientation Straight 12/06/2019 3: 36 PM CONTACT CENTER CONSULTANT Occupation Industry Job Start Date Job End Date Not on file Not on file Not on file Not on file documented as of this encounter Plan of Treatment Not on file documented as of this encounter Visit Diagnoses Not on filedocumented in this encounter Care Teams Strawberry Grower Relationship Specialty Start Date End Date Dane Sullivan DO PCP - General FAMILY PRACTICE 05/15/16 02/11/17 Asa Mcnamara MD [facility]. [facility] [address] [place] [address] Union Clinical Scientist CARDIOVASCULAR DISEASE 05/15/16 documented as of this encounter
--- OUTSIDE RECORDS SUMMARY | 2024-11-12 05:30 | XMS_ITS | Encounter Summary ---
Author Organization [facility] Address [address] [facility]. [place], [place] [address] [place] [address] Care Team Providers Care Hat Conditioner Name Role Phone Dnae Sullivan DO Primary Care Provider + [phone] Asa Mcnamara MD Unavailable [phone] Deisi Andrews MD Primary Care Provider [phone] Heber Adorno MD Primary Care Provider Unavailable Deisi Andrews MD Primary Care Provider [phone] Encounter Details Date Type Department Care Team (Late st Contact Info) Description 09/02/2016 Abstract [facility] Family Medicine - [address] [phone] Dane Sullivan DO [address] [phone] Social History Tobacco Use Types Packs/Day Years Used Date Smoking Tobacco: Every Day Cigarettes Smokeless Tobacco: Never Comments:3 cig a day Alcohol Use Standard Drinks/Week Comments No 0 (1 standard drink = 0.6 oz pur e alcohol) Comments Unknown Sex and Gender Information Value Date Recorded Sex Assigned at Female 12/06/2019 3:36 PM SOFT MUD MOLDER Legal Sex Female 5:20 PM CDT Gender Identity Female 12/06/2019 3:36 PM SOFT MUD MOLDER Sexual Orientation Straight 12/06/2019 3: 36 PM SOFT MUD MOLDER Occupation Industry Job Start Date Job [...] this happened since quitting smoking while in [place], staying with friend has been using imodium, [...] Smoking (305.1) (F17.200) Immunizations Influenza --- Series1: 39Tol4783 Current Meds 1. Albuterol Sulfate (2.5 MG/3ML) 0.083% Inhalation Nebulization Solution; USE 1 UNIT DOSE IN NEBULIZER EVERY 4 TO 6 HOURS NEEDED; Therapy: 15Ymh0400 to (Last Rx:[id number]) Requested for: [id number] Ordered Rx By: Dane Sullivan; Dispense: 0 Days ; #:3 X 3 ML Plas Cont (60 Plas Conts); Refill: 1; For: Chronic obstructive pulmonary disease; ADAM = N; Verified Transmission to [facility]; Last Updated By: Blue Saint; 06/09/2016 2:36:41 PM 2. Joleen 180 MG TABS; Therapy: (Recorded:[id number]) to Recorded Dispense: 0 Days ; #: Sufficient TABS; Refill: 0; ADAM = N; Record; Last Updated By: Jennifer Wayne; 07/14/2016 9:53:22 AM 3. Ambien 5 MG Oral Tablet; Therapy: (Recorded:[id number]) to Recorded Dispense: 0 Days ; #: Sufficient TABS; Refill: 0; ADAM = N; Record; Last Updated By: Jennifer Wayne; 07/14/2016 9:53:22 AM 4. AmLODIPine Besylate 5 MG Oral Tablet; TAKE 1 TABLET DAILY DIRECTED; Therapy: 25Sep2015 to (Evaluate:22Sep2016) Requested for: 77Avj8949; Last Rx:[id number] Ordered Rx By: Dane Sullivan; Dispense: 90 Days ; #:90 Tablet; Refill: 1; For: Hypertension; ADAM = N; Verified Transmission to [facility]; Last Updated By: Marilee Walker; 04/01/2016 8:50:15 AM 5. Aspirin Low Dose TABS; Therapy: (Recorded:[id number]) to Recorded Dispense: 0 Days ; #: Sufficient Tablet; Refill: 0; ADAM = N; Record; Last Updated By: Jennifer Wayne; 07/14/2016 9:53:22 AM 6. Cilostazol 100 MG Oral Tablet; Therapy: (Recorded:[id number]) to Recorded Dispense: 0 Days ; #: Sufficient TABS; Refill: 0; ADAM = N; Record; Last Updated By: Jennifer Wayne; 07/14/2016 9:53:22 AM 7. ClonazePAM 1 MG Oral Tablet; TAKE 1 TABLET TWICE DAILY NEEDED; Therapy: 14Jul2016 to (Evaluate:12Sep2016) Requested for: 13Aug2016; Last Rx:[id number]; Status: ACTIVE - Renewal Denied Ordered Rx By: Dane Sullivan; Dispense: 30 Days ; #:60 Tablet; Refill: 0; For: Anxiety; ADAM = N; Record; Last Updated By: Blue Saint; 08/13/2016 8:07:06 AM 8. Cyclobenzaprine HCl - 10 MG Oral Tablet; TAKE ONE TABLET BY MOUTH ONCE TO TWICE DAILY NEEDED; Therapy: 27Nov2015 to (Evaluate:21Szs0396) Requested for: 16Apr2016; Last Rx:[id number] Ordered Rx By: Dane Sullivan; Dispense: 30 Days ; #:60 TAB; Refill: 2; For: Chronic pain; ADAM = N; Verified Transmission to [facility]; Last Updated By: Blue Saint; 04/16/2016 9:42:21 AM 9. FLUoxetine HCl - 20 MG Oral Capsule; TAKE 1 CAPSULE DAILY Requested for: 14Jul2016; Last Rx:[id number] Ordered Rx By: Dane Sullivan; Dispense: 90 Days ; #:90 Capsule; Refill: 1; For: Anxiety; ADAM = N; Verified Transmission to [facility]; Last Updated By: Blue Saint; 07/14/2016 10:11:04 AM 10. Isosorbide Mononitrate ER 30 MG Oral Tablet Extended Release 24 Hour; Therapy: (Recorded:[id number]) to Recorded Dispense: 0 Days ; #: Sufficient TB24; Refill: 0; ADAM = N; Record; Last Updated By: Jennifer Wayne; 07/14/2016 9:53:22 AM 11. Losartan Potassium 100 MG Oral Tablet; TAKE ONE TABLET BY MOUTH ONCE DAILY; Therapy: 30Ypc8848 to (Evaluate:67Zlq5947) Requested for: 82Kia2474; Last Rx:[id number] Ordered Rx By: Dane Sullivan; Dispense: 90 Days ; #:90 TAB; Refill: 2; For: Hypertension; ADAM = N; Verified Transmission to [facility]; Last Updated By: Marilee Walker; 04/01/2016 8:50:14 AM 12. MetFORMIN HCl - 500 MG Oral Tablet; TAKE ONE TABLET BY MOUTH TWICE DAILY WITH MEALS; Therapy: 10Mar2016 to (Evaluate:39Xzg2282) Requested for: 12Rpu8895; Last Rx:[id number] Ordered Rx By: Dane Sullivan; Dispense: 30 Days ; #:180 TAB; Refill: 2; For: Health Maintenance; ADAM = N;Verified Transmission to [facility]; Last Updated By: Marilee Walker; 04/01/2016 8:50:14AM 13. Metoprolol Succinate ER 25 MG Oral Tablet Extended Release 24 Hour; Therapy: (Recorded:05Xpc3607) to Recorded Dispense: 0 Days ; #: Sufficient TB24; Refill: 0; ADAM = N; Record; Last Updated By: Jennifer Wayne; 07/14/2016 9:53:22 AM 14. Montelukast Sodium 10 MG Oral Tablet; TAKE 1 TABLET DAILY Requested for: 36Mmk2236; Last Rx:[id number] Ordered Rx By: Dane Sullivan; Dispense: 90 Days ; #:90 Tablet; Refill: 1; For: Chronic obstructive pulmonary disease; ADAM = N; Verified Transmission to [facility]; Last Updated By: Marilee Walker; 04/01/2016 8:50:14 AM 15. Nitrostat 0.4 MG Sublingual Tablet Sublingual; Therapy: (Recorded:25Srd7423) to Recorded Dispense: 0 Days ; #: Sufficient SUBL; Refill: 0; ADAM = N; Record; Last Updated By: Jennifer Wayne; 07/14/2016 9:53:22 AM 16. Percocet 5-325 MG Oral Tablet; Therapy: (Recorded:37Iqr7086) to Recorded Dispense: 0 Days ; #: Sufficient TABS; Refill: 0; ADAM = N; Record; Last Updated By: Jennifer Wayne; 07/14/2016 9:53:22 AM 17. Pravastatin Sodium 40 MG Oral Tablet; TAKE ONE TABLET BY MOUTH ONCE DAILY; Therapy: 97Ldp4598 to (Evaluate:04Uxe2005) Requested for: 01Apr2016; Last Rx:12Feb2016 Ordered Rx By: Dane Sullivan; Dispense: 90 Days ; #:90 TAB; Refill: 2; For: Hyperlipidemia; ADAM = N; Verified Transmission to [facility]; Last Updated By: Marilee Walker; 04/01/2016 [...] disease; ADAM = N; Verified Transmission to [facility]; Last Updated By: Marilee Walker; 04/01/2016 8:50:14 AM 20. Ventolin HFA 108 (90 Base) MCG/ACT Inhalation Aerosol Solution; INHALE TWO PUFFS BY MOUTH EVERY 4 TO 6 HOURS NEEDED; Therapy: 70Goa2081 to (Evaluate:56Epj1060) Requested for: 31Aug2016; Last Rx:31Aug2016 Ordered Rx By: Dane Sullivan; Dispense: 17 Days ; #:18 Unit; Refill: 2; For: Chronic obstructive pulmonary disease; ADAM = N; Verified Transmission to [facility]; Last Updated By: Ezra Baez; 08/31/2016 9:47:43 AM 21. Xanax 1 MG Oral Tablet; Therapy: (Recorded:[id number]) to Recorded Dispense: 0 Days ; #: [...] Chronic diarrhea; ADAM = N; Sent To: [facility] Chronic diarrhea, Enteritis 2. CBC W Differential; Status:Hold For - Manual Activation; Requested for:02Sep2016; Perform:[facility]; Due:02Oct2016;Ordered; For:Chronic diarrhea, Enteritis; Ordered By:Dane Sullivan; 3. Compr Metabolic Prof ( CMP ); Status:Hold For - Manual Activation; Requested for:02Sep2016; Perform:[facility]; Due:02Oct2016;Ordered; For:Chronic diarrhea, Enteritis; Ordered By:Dane Sullivan; 4. O AND P, STOOL AND SMEAR; Status:Hold For - Manual Activation; Requested for:02Sep2016; Perform:[facility]; Due:02Oct2016;Ordered; For:Chronic diarrhea, Enteritis; Ordered By:Dane Sullivan; 5. Stool C Diff Molecular Assay; Status:Hold For - Manual Activation; Requested for:02Sep2016; [facility]; Due:02Oct2016;Ordered; For:Chronic diarrhea, Enteritis; Ordered By:Dane Sullivan; 6. Stool Culture; Status:Hold For - Manual Activation; Requested for:02Sep2016; [facility]; Due:02Oct2016;Ordered; For:Chronic diarrhea, Enteritis; Ordered By:Dane Sullivan; Source: : Stool 7. TSH W Reflex Free T4; Status:Hold For - Manual Activation; Requested for:02Sep2016; Perform[facility]; Due:02Oct2016;Ordered; For:Chronic diarrhea, Enteritis; Ordered By:Dane Sullivan; Enteritis 8. Stool Giard / Crypto Ag; Status:Hold For - Manual Activation; Requested for:02Sep2016; Perform[facility]; Due:02Oct2016;Ordered; For:Enteritis; Ordered By:Dane Sullivan; Discussion/Summary Check labs to include stool culture ADAT, BRAT diet will treat empirically for traveler's diarrhea with FQ x 3 days RTC if not resolved after 1 week Signatures Electronically signed by : Dane Sullivan D.O.; Sep 02 2016 7:18AM SOFT MUD MOLDER (Author) documented in this encounter Plan of Treatment Not on file documented as of this encounter Visit Diagnoses Not on filedocumented in this encounter Care Teams Hat Conditioner Relationship Specialty Start Date End Date Dane Sullivan DO PCP - General FAMILY PRACTICE 05/15/16 02/11/17 Deisi Andrews MD [address] [place] [address] PCP - General FAMILY PRACTICE 02/13/17 03/10/17 Heber Adorno MD PCP - General 03/11/17 06/14/17 Deisi Andrews MD [address] [place] [address] PCP - General FAMILY PRACTICE 06/15/17 10/14/19 Asa Mcnamara MD [facility] [address] [place] [address] Stephen Subway Operator CARDIOVASCULAR DISEASE 05/15/16 documented as of this encounter
--- OUTSIDE RECORDS SUMMARY | 2024-11-12 05:30 | XMS_ITS | Encounter Summary ---
Author Organization [facility] Address [facility]. [place], [place] [address] [place] [address] Care Team Providers Care Brick Chimney Builder Name Role Phone Dnae Sullivan DO Primary Care Provider + [phone] Asa Mcnamara MD Unavailable [phone] Deisi Andrews MD Primary Care Provider [phone] Heber Adorno MD Primary Care Provider Unavailable Deisi Andrews MD Primary Care Provider [phone] Encounter Details Date Type Department Care Team (Latest Contact Info) Description 06/04/2016 Abstract [facility] Medical Group Heber Adorno MD Social History Tobacco Use Types Packs/Day Years Used Date Smoking Tobacco: Every Day Cigarettes Smokeless Tobacco: Never Alcohol Use Standard Drinks/Week Comments No 0 (1 standard drink = 0.6 oz pur e alcohol) Comments Unknown Sex and Gender Information Value Date Recorded Sex Assigned at Female 12/06/2019 3:36 PM ENGLISH LECTURER Legal Sex Female 5:20 PM CDT Gender Identity Female 12/06/2019 3:36 PM ENGLISH LECTURER Sexual Orientation Straight 12/06/2019 3: 36 PM ENGLISH LECTURER 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 [address] Patient: RODY CRUZ [facility] Rec#: [id number] Birthdate: 1960 Admit/Svce Date: 06/04/2016 Disch Date: Attending Md: ASA MCNAMARA MD CHART DOCUMENT PREOPERATIVE DIAGNOSIS: POSTOPERATIVE DIAGNOSIS: SURGERY PERFORMED DATE 06/04/2016 SURGEON: ASA MCNAMARA M.D. UNDER SHERIFF: INDICATION: 1. Lifestyle limiting intermittent claudication. 2. Moderately reduced KENZIE in the right leg. PROCEDURE: The patient was prepped and draped using aseptic techniques. The left one was anesthetized using 1% lidocaine. Using ultrasound guidance, the left common femoral artery was cannulated. A 5-Greek sheath was placed. An Omni Flush catheter was advanced into the abdominal aorta. Aortogram was performed in the AP projection. The catheter was pulled back to just above the aortic bifurcation. Iliac angiograms were performed in orthogonal views. Using a J-tipped wire, this catheter was exchanged for a 5-Greek crossover catheter. The right common iliac artery [...] 06/05/2016 05:20 P ASA MCNAMARA M.D. A #[id number] P/ma cc: Michelle ISLAS D.O. documented in this encounter Plan of Treatment Not on file documented as of this encounter Visit Diagnoses Not on filedocumented in this encounter Care Teams Brick Chimney Builder Relationship Specialty Start Date End Date Dane Sullivan DO PCP - General FAMILY PRACTICE 05/15/16 02/11/17 Deisi Andrews MD [address] [place] [address] [place] [address] PCP - General FAMILY PRACTICE 02/13/17 03/10/17 Heber Adorno MD PCP - General 03/11/17 06/14/17 Deisi Andrews MD [address] [place] [address] [place] [address] PCP - General FAMILY PRACTICE 06/15/17 10/14/19 Asa Mcnamara MD [facility]. [facility] [address] [place] [address] Rinard Beef Cattle Specialist CARDIOVASCULAR DISEASE 05/15/16 documented as of this encounter
--- OUTSIDE RECORDS SUMMARY | 2024-11-12 05:30 | XMS_ITS | Encounter Summary ---
Author Organization [facility] Address [address] [facility]. [place], [place] [address] [place] [address] Care Team Providers Care Silica Spray Mixer Name Role Phone Dane Sullivan Primary Care Provider + [phone] Asa Mcnamara MD Unavailable [phone] Deisi Andrews MD Primary Care Provider [phone] Md, Generic Conversion Primary Care Provider Unavailable Deisi Andrews MD Primary Care Provider [phone] Encounter Details Date Type Department Care Team (Late st Contact Info) Description 05/25/2016 Abstract [place] [address] Asa Mcnamara MD [facility]. [place] [address] [place], [place] [id number] Social History Tobacco Use Types Packs/Day Years Used Date Smoking Tobacco: Every Day Cigarettes Smokeless Tobacco: Never Alcohol Use Standard Drinks/Week Comments No 0 (1 standard drink = 0.6 oz pur e alcohol) Comments Unknown Sex and Gender Information Value Date Recorded Sex Assigned at Female 12/06/2019 3:36 PM BROADBAND TECHNICIAN Legal Sex Female 5:20 PM CDT Gender Identity Female 12/06/2019 3:36 PM BROADBAND TECHNICIAN Sexual Orientation Straight 12/06/2019 3: 36 PM BROADBAND TECHNICIAN Occupation Industry Job Start Date Job [...] - 10.8 X10'3/uL 05/25/2016 4:42 PM CDT [facility] RBC 4.69 4.20 - 5.40 X10'6/uL 05/25/2016 4:42 PM CDT [facility] HGB 13.0 12.0 - 16.0 g/dL 05/25/2016 4:42 PM CDT [facility] HCT 40.6 38.0 - 48.0 % 05/25/2016 4:42 PM CDT [facility] MCV 86.6 81.0 - 99.0 fL 05/25/2016 4:42 PM CDT [facility] MCH 27.7 27.0 - 31.0 pg 05/25/2016 4:42 PM CDT [facility] MCHC 32.0 32.0 - 36.0 g/dL 05/25/2016 4:42 PM CDT [facility] RDW 13.4 11.5 - 14.5 % 05/25/2016 4:42 PM CDT [facility] PLT 245 130 - 400 X10'3/uL 05/25/2016 4:42 PM CDT [facility] MPV 10.2 9.3 - 12.2 fL 05/25/2016 4:42 PM CDT [facility] DIFFERENTIAL TYPE AUTOMATED 05/25/2016 4:42 PM CDT [facility] NEUTROPHILS % 63.3 43.0 - 65.0 % 05/25/2016 4:42 PM CDT [facility] LYMPHOCYTES % 24.9 20.0 - 46.0 % 05/25/2016 4:42 PM CDT [facility] MONOCYTES % 8.0 5.0 - 12.0 % 05/25/2016 4:42 PM CDT [facility] EOSINOPHILS 3.0 1.0 - 3.0 % 05/25/2016 4:42 PM CDT [facility] BASOPHILS 0.4 0.0 - 1.0 % 05/25/2016 4:42 PM CDT [facility] IMMATURE GRANS % 0.4 0.0 - 1.0 % 05/25/2016 4:42 PM CDT [facility] 05/25/2016 12:3 0 PM CDT 05/25/2016 4:38 PM CDT us Generic Conversion Md [facility] Final R esult [facility] [address] [place] [address], * (ABNORMAL) BASIC METABOLIC PANEL (05/25/2016 12:30 PM CDT) GLUCOSE 105(H) 70 - 99 mg/dL 05/25/2016 6:02 PM CDT [facility] BUN 16 8 - 23 mg/dL 05/25/2016 6:02 PM CDT [facility] CREATININE S/P/B 0.65 0.60 - 1.10 mg/dL 05/25/2016 6:02 PM CDT [facility] SODIUM S/P/B 140 136 - 145 mmol/L 05/25/2016 6:02 PM CDT [facility] POTASSIUM S/P/B 4.4 3.5 - 5.1 mmol/L 05/25/2016 6:02 PM CDT [facility] CHLORIDE S/P/B 102 98 - 107 mmol/L 05/25/2016 6:02 PM CDT [facility] CO2 23 22 - 29 mmol/L 05/25/2016 6:02 PM CDT [facility] CALCIUM S/P/B 9.2 8.6 - 10.2 mg/dL 05/25/2016 6:02 PM CDT [facility] ANION GAP 19 8 - 20 05/25/2016 6:02 PM CDT [facility] EGFR NON-AFR. AMER. >60 >60 mL/min/1.7 3m'2 05/25/2016 6:02 PM CDT [facility] EGFR AFR. AMER. >60 >60 mL/min/1.7 3m'2 05/25/2016 6:02 PM CDT [facility] Comment: NOTE: eGFR is not calculated for patients <18 years of age. This is an estimated GFR (CKD EPI) and should not be used for calculating drug doses. 05/25/2016 12:3 0 PM CDT 05/25/2016 4:38 PM CDT us Generic Conversion Md [facility] Final R esult [facility] [address] [place] [address], documented in this encounter Visit Diagnoses Diagnosis Encounter for other preprocedural examination documented in this encounter Care Teams Silica Spray Mixer Relationship Specialty Start Date End Date Dane Sullivan DO PCP - General FAMILY PRACTICE 05/15/16 02/11/17 Deisi Andrews MD [address] [place] [address] PCP - General FAMILY PRACTICE 02/13/17 03/10/17 Heber Huynh MD PCP - General 03/11/17 06/14/17 Deisi Andrews MD [address] [place] [address] PCP - General FAMILY PRACTICE 06/15/17 10/14/19 Asa Mcnamara MD [facility] [address] [place] [address] [place] Associate Store Leader CARDIOVASCULAR DISEASE 05/15/16 documented as of this encounter
--- OUTSIDE RECORDS SUMMARY | 2024-11-12 05:30 | XMS_ITS | Encounter Summary ---
Author Organization [facility] Address [address] [facility] [place] [address] [place] [address] Care Team Providers Care Powerhouse Mechanic Apprentice Name Role Phone Dane Sullivan Primary Care Provider [phone] Asa Mcnamara MD Unavailable [phone] Encounter Details Date Type Department Care Team (Late st Contact Info) Description 06/05/2016 INSIDE SALES AGENT ONLY [facility] [address] [place] [address] Asa Mcnamara MD [place] [address] [place] [address] Social History Tobacco Use Types Packs/Day Years Used Date Smoking Tobacco: Every Day Cigarettes Smokeless Tobacco: Never Alcohol Use Standard Drinks/Week Comments No 0 (1 standard drink = 0.6 oz pur e alcohol) Comments Unknown Sex and Gender Information Value Date Recorded Sex Assigned at Female 12/06/2019 3:36 PM SHELL WORKER Legal Sex Female 5:20 PM CDT Gender Identity Female 12/06/2019 3:36 PM SHELL WORKER Sexual Orientation Straight 12/06/2019 3: 36 PM SHELL WORKER 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 CHIEF CONTROLLER CENTER: INDICATION: 1. Lifestyle limiting intermittent claudication. 2. Moderately reduced KENZIE in the right leg. PROCEDURE: The patient was prepped and draped using aseptic techniques. The left one was anesthetized using 1% lidocaine. Using ultrasound guidance, the left common femoral artery was cannulated. A 5-Cuban sheath was placed. An Omni Flush catheter was advanced into the abdominal aorta. Aortogram was performed in the AP projection. The catheter was pulled back to just above the aortic bifurcation. Iliac angiograms were performed in orthogonal views. Using a J-tipped wire, this catheter was exchanged for a 5-Cuban crossover catheter. The right common iliac artery [...] 06/05/2016 05:20 P ASA MCNAMARA M.D. A #[id number] P/ma cc: Michelle ISLAS D.O. documented in this encounter Plan of Treatment Not on file documented as of this encounter Visit Diagnoses Not on filedocumented in this encounter Care Teams Powerhouse Mechanic Apprentice Relationship Specialty Start Date End Date Dane Sullivan DO PCP - General FAMILY PRACTICE 05/15/16 02/11/17 Asa Mcnamara MD [facility]. [place] [address] [place] [address] [place] Tool And Equipment Rental Clerk CARDIOVASCULAR DISEASE 05/15/16 documented as of this encounter
--- OUTSIDE RECORDS SUMMARY | 2024-11-12 05:30 | XMS_ITS | Encounter Summary ---
Author Organization [facility] Address [facility]. [place], [place] [address] [place] [address] Care Team Providers Care Rn Otolaryngology Name Role Phone Dane Sullivan DO Primary Care Provider + [phone] Asa Mcnamara MD Unavailable [phone] Deisi Andrews MD Primary Care Provider [phone] Heber Adorno MD Primary Care Provider Unavailable Deisi Andrews MD Primary Care Provider [phone] Encounter Details Date Type Department Care Team (Latest Contact Info) Description 02/01/2017 Abstract [facility] Medical Group Social History Tobacco Use Types Packs/Day Years Used Date Smoking Tobacco: Every Day Cigarettes Smokeless Tobacco: Never Comments:3 cig a day Alcohol Use Standard Drinks/Week Comments No 0 (1 standard drink = 0.6 oz pur e alcohol) Comments Unknown Sex and Gender Information Value Date Recorded Sex Assigned at Female 12/06/2019 3:36 PM SUPERINTENDENT REFUSE DISPOSAL Legal Sex Female 5:20 PM CDT Gender Identity Female 12/06/2019 3:36 PM SUPERINTENDENT REFUSE DISPOSAL Sexual Orientation Straight 12/06/2019 3: 36 PM SUPERINTENDENT REFUSE DISPOSAL Occupation Industry Job Start Date Job End Date Not on file Not on file Not on file Not on file documented as of this encounter Plan of Treatment Not on file documented as of this encounter Visit Diagnoses Not on filedocumented in this encounter Care Teams Rn Otolaryngology Relationship Specialty Start Date End Date Dane Sullivan DO PCP - General FAMILY PRACTICE 05/15/16 02/11/17 Deisi Andrews MD [address] [place] [address] PCP - General FAMILY PRACTICE 02/13/17 03/10/17 Heber Adorno MD PCP - General 03/11/17 06/14/17 Deisi Andrews MD [address] [place] [address] PCP - General FAMILY PRACTICE 06/15/17 10/14/19 Asa Mcnamara MD [facility] [address] [place] [address] Stephen Quantitative Research Analyst CARDIOVASCULAR DISEASE 05/15/16 documented as of this encounter
--- OUTSIDE RECORDS SUMMARY | 2024-11-12 05:30 | XMS_ITS | Encounter Summary ---
Author Organization [facility] Address [facility]6 [facility]. [place], [place] [address] [place] [address] Care Team Providers Care Hydramatic Mechanic Name Role Phone Dane Sullivan DO Primary Care Provider [phone] Asa Mcnamara MD Unavailable [phone] Deisi Andrews MD Primary Care Provider [phone] Heber Adorno MD Primary Care Provider Unavailable Deisi Andrews MD Primary Care Provider [phone] Encounter Details Date Type Department Care Team (Latest Contact Info) Description 05/21/2016 Abstract [facility] Medical Group Social History Tobacco Use Types Packs/Day Years Used Date Smoking Tobacco: Every Day Cigarettes Smokeless Tobacco: Never Alcohol Use Standard Drinks/Week Comments No 0 (1 standard drink = 0.6 oz pur e alcohol) Comments Unknown Sex and Gender Information Value Date Recorded Sex Assigned at Female 12/06/2019 3:36 PM INTERNET MARKETING DIRECTOR Legal Sex Female 5:20 PM CDT Gender Identity Female 12/06/2019 3:36 PM INTERNET MARKETING DIRECTOR Sexual Orientation Straight 12/06/2019 3: 36 PM INTERNET MARKETING DIRECTOR 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 Not on file Not on file documented as of this encounter Plan of Treatment Not on file documented as of this encounter Visit Diagnoses Not on filedocumented in this encounter Care Teams Hydramatic Mechanic Relationship Specialty Start Date End Date Dane Sullivan DO PCP - General FAMILY PRACTICE 05/15/16 02/11/17 Deisi Andrews MD [address] [place] [address] PCP - General FAMILY PRACTICE 02/13/17 03/10/17 Heber Adorno MD PCP - General 03/11/17 06/14/17 Deisi Andrews MD [address] [place] [address] PCP - General FAMILY PRACTICE 06/15/17 10/14/19 Asa cMnamara MD [facility] [address] [place] [address] [place] Braze Operator CARDIOVASCULAR DISEASE 05/15/16 documented as of this encounter
--- OUTSIDE RECORDS SUMMARY | 2024-11-12 05:30 | XMS_ITS | Encounter Summary ---
Author Organization [facility] Address [facility]6 [facility]. [place], [place] [address] [place] [address] Care Team Providers Care Dyno Technician Name Role Phone Tere Monae DO Primary Care Provider + [phone] Asa Mcnamara MD Unavailable [phone] Deisi Andrews MD Primary Care Provider [phone] Heber Adorno MD Primary Care Provider Unavailable Deisi Andrews MD Primary Care Provider [phone] Encounter Details Date Type Department Care Team (Latest Contact Info) Description 06/25/2016 Abstract [facility] Medical Group Heber Adorno MD Social History Tobacco Use Types Packs/Day Years Used Date Smoking Tobacco: Every Day Cigarettes Smokeless Tobacco: Never Alcohol Use Standard Drinks/Week Comments No 0 (1 standard drink = 0.6 oz pur e alcohol) Comments Unknown Sex and Gender Information Value Date Recorded Sex Assigned at Female 12/06/2019 3:36 PM BOAT CANVAS MAKER AND INSTALLER Legal Sex Female 5:20 PM CDT Gender Identity Female 12/06/2019 3:36 PM BOAT CANVAS MAKER AND INSTALLER Sexual Orientation Straight 12/06/2019 3: 36 PM BOAT CANVAS MAKER AND INSTALLER 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 [place] [address] Patient: RODY CRUZ [facility] Rec#: [id number] Birthdate: 1960 Admit/Svce Date: 06/25/2016 Disch Date: Attending Md: ELI HAY MD CHART DOCUMENT PREOPERATIVE DIAGNOSIS: Knee osteoarthritis. POSTOPERATIVE DIAGNOSIS: Knee osteoarthritis. SURGERY PERFORMED: Bilateral knee injections under fluoroscopy. DATE: 06/25/2016 SURGEON: ELI HAY MD TRUCK REPAIR SUPERVISOR: REFERRING PHYSICIAN: CAPT. TERE MONAE D.O. CHIEF [...] 06/25/2016 04:16 P ELI HAY M.D. A #[id number] P/ma cc: Michelle EPSTEIN D.O. documented in this encounter Plan of Treatment Not on file documented as of this encounter Visit Diagnoses Not on filedocumented in this encounter Care Teams Dyno Technician Relationship Specialty Start Date End Date Tere Monae DO PCP - General FAMILY PRACTICE 05/15/16 02/11/17 Deisi Andrews MD [address] [place] [address] [place] [address] PCP - General FAMILY PRACTICE 02/13/17 03/10/17 Heber Adorno MD PCP - General 03/11/17 06/14/17 Deisi Andrews MD [address] [place] [address] [place] [address] PCP - General FAMILY PRACTICE 06/15/17 10/14/19 Asa Mcnamara MD [facility]. [facility] [address] [place] [address] [place] Hand Cell Tuber CARDIOVASCULAR DISEASE 05/15/16 documented as of this encounter
--- OUTSIDE RECORDS SUMMARY | 2024-11-12 05:30 | XMS_ITS | Encounter Summary ---
Author Organization [facility] Address [facility]6 [place] [address] [place] [address] Care Team Providers Care Vocational Education Teacher Name Role Phone Dane Sullivan DO Primary Care Provider [phone] Asa Mcnamara MD Unavailable [phone] Encounter Details Date Type Department Care Team (Late st Contact Info) Description 11/04/2016 Scan [facility] [address] [place] [address] Scanned, Documents Social History Tobacco Use Types Packs/Day Years Used Date Smoking Tobacco: Every Day Cigarettes Smokeless Tobacco: Never Comments:3 cig a day Alcohol Use Standard Drinks/Week Comments No 0 (1 standard drink = 0.6 oz pur e alcohol) Comments Unknown Sex and Gender Information Value Date Recorded Sex Assigned at Female 12/06/2019 3:36 PM CREATIVE COORDINATOR Legal Sex Female 5:20 PM CDT Gender Identity Female 12/06/2019 3:36 PM CREATIVE COORDINATOR Sexual Orientation Straight 12/06/2019 3: 36 PM CREATIVE COORDINATOR Occupation Industry Job Start Date Job [...] on filedocumented in this encounter Care Teams Vocational Education Teacher Relationship Specialty Start Date End Date Dane Sullivan DO PCP - General FAMILY PRACTICE 05/15/16 02/11/17 Asa Mcnamara MD [facility]. [facility] [address] [place] [address] [place] Medical Receptionist Medical Assistant CARDIOVASCULAR DISEASE 05/15/16 documented as of this encounter
--- OUTSIDE RECORDS SUMMARY | 2024-11-12 05:30 | XMS_ITS | Encounter Summary ---
Author Organization [facility] Address [facility]6 [facility]. [place], [place] [address] [place] [address] Care Team Providers Care Campground Attendant Name Role Phone Tere Monae DO Primary Care Provider + [phone] Asa Mcnamara MD Unavailable [phone] Deisi Andrews MD Primary Care Provider [phone] Heber Adorno MD Primary Care Provider Unavailable Deisi Andrews MD Primary Care Provider [phone] Encounter Details Date Type Department Care Team (Latest Contact Info) Description 08/06/2016 Abstract 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 [place] [address] Patient: RODY CRUZ [facility] Rec#: [id number] Birthdate: 1960 Admit/Svce Date: 08/05/2016 Disch Date: Attending Md: ASA MCNAMARA MD CHART DOCUMENT [id number] [facility] Pat.Name: RODY CRUZ Pat.ID: [id number] .Date: 08/05/2016 Refer.MD: TERE MONAE DO Exam [...] Stent PSV 159 cm/s Left Dist Stent KLAANI:Stent Dist Stent PSV 139 cm/s Right Dist Stent KALANI:Stent Dist Stent PSV 175 cm/s Left Dist to Stent KALANI:Stent Dist to Stent P 121 cm/s Right Dist to Stent KALANI:Stent Dist to Stent P 155 cm/s Signed 08/06/2016 06:39 PM Jose Hawkins M.D. cc: Michelle ISLAS D.O. * Tere Monae DO - 08/06/2016 6:40 PM CDT [place] [address] Patient: RODY CRUZ [facility] Rec#: [id number] Birthdate: 1960 Admit/Svce Date: 08/05/2016 Disch Date: Attending Md: ASA MCNAMARA MD CHART DOCUMENT ARTERIAL DOPPLER - KENZIE BILATERAL LOWER EXTREMITY VASCULAR LAB Pat.Name: RODY CRUZ Pat.ID: [id number] .Date: 08/05/2016 Refer.MD: TERE MONAE DO Exam [...] Symptoms:Follow up stenting Surgery: Iliac Stent BILAT [facility] 07/01 Medications:ASA, Plavix-Clopidogrel, Eliquis-Apixaban ++++++++++++++++++++++++++++++++++++ SUMMARY: ++++++++++++++++++++++++++++++++++++ [...] on filedocumented in this encounter Care Teams Campground Attendant Relationship Specialty Start Date End Date Tere Monae DO PCP - General FAMILY PRACTICE 05/15/16 02/11/17 Deisi Andrews MD [address] [place] [address] PCP - General FAMILY PRACTICE 02/13/17 03/10/17 Heber Adorno MD PCP - General 03/11/17 06/14/17 Deisi Andrews MD [address] [place] [address] [place] [address] PCP - General FAMILY PRACTICE 06/15/17 10/14/19 Asa Mcnamara MD [facility]. [facility] [address] [place] [address] Grants Pararescue Manager CARDIOVASCULAR DISEASE 05/15/16 documented as of this encounter
--- OUTSIDE RECORDS SUMMARY | 2024-11-12 05:30 | XMS_ITS | Encounter Summary ---
Author Organization [facility] Address [address] [facility] [place] [address] [place] [address] Care Team Providers Care Contract Writer Name Role Phone Dane Sullivan Primary Care Provider [phone] Asa Mcnamara MD Unavailable [phone] Reason for Visit * Reason Onset Date Comments Surgical Clearance 06/26/2016 Encounter Details Date Type Department Care Team (Late st Contact Info) Description 06/26/2016 Telephone [facility] AT [address] [address] Asa Mcnamara MD [address] [address] Surgical Clearance Social History Tobacco Use Types Packs/Day Years Used Date Smoking Tobacco: Every Day Cigarettes Smokeless Tobacco: Never Alcohol Use Standard Drinks/Week Comments No 0 (1 standard drink = 0.6 oz pur e alcohol) Comments Unknown Sex and Gender Information Value Date Recorded Sex Assigned at Female 12/06/2019 3:36 PM AUTO BUMPER STRAIGHTENER Legal Sex Female 5:20 PM CDT Gender Identity Female 12/06/2019 3:36 PM AUTO BUMPER STRAIGHTENER Sexual Orientation Straight 12/06/2019 3: 36 PM AUTO BUMPER STRAIGHTENER 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 * Christina Munguia PA-C - 06/26/2016 4:23 PM CDT Ok to hold medication 48 hours prior to injection. Irene Vasquez * Porsha David - 06/26/2016 10:26 AM CDT Received fax request from [facility] requesting clearance for Pletal to be held 2 days prior to pain management injections. Patient is scheduled for peripheral intervention with Dr. Mcnamara on 07/01/16. Forwarded to JOSE Triplett for Dr. Mcnamara. documented in this encounter Plan of Treatment Not on file documented as of this encounter Visit Diagnoses Not on filedocumented in this encounter Care Teams Contract Writer Relationship Specialty Start Date End Date Dane Sullivan DO PCP - General FAMILY PRACTICE 05/15/16 02/11/17 Asa Mcnamara MD [address] [place] [address] [place] [address] [place] Hazardous Material Specialist CARDIOVASCULAR DISEASE 05/15/16 documented as of this encounter
--- OUTSIDE RECORDS SUMMARY | 2024-11-12 05:30 | XMS_ITS | Encounter Summary ---
Author Organization [facility] Address [facility]6 [facility] [address] [place] [address] Care Team Providers Care Spring Encaser Name Role Phone Dane Sullivan DO Primary Care Provider [phone] Asa Mcnamara MD Unavailable [phone] Encounter Details Date Type Department Care Team (Late st Contact Info) Description 06/04/2016 Orders Only [facility] AT [address] [id number] Karen Gonzalez, [facility] Social History Tobacco Use Types Packs/Day Years Used Date Smoking Tobacco: Every Day Cigarettes Smokeless Tobacco: Never Alcohol Use Standard Drinks/Week Comments No 0 (1 standard drink = 0.6 oz pur e alcohol) Comments Unknown Sex and Gender Information Value Date Recorded Sex Assigned at Female 12/06/2019 3:36 PM COMPUTING CONSULTANT Legal Sex Female 5:20 PM CDT Gender Identity Female 12/06/2019 3:36 PM COMPUTING CONSULTANT Sexual Orientation Straight 12/06/2019 3: 36 PM COMPUTING CONSULTANT 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
--- OUTSIDE RECORDS SUMMARY | 2024-11-12 05:30 | XMS_ITS | Encounter Summary ---
Author Organization [facility] Address [address] [facility] [place] [address] [place] [address] Care Team Providers Care Superannuation Clerk Name Role Phone Tere Monae Primary Care Provider [phone] Asa Mcnamara MD Unavailable [phone] Encounter Details Date Type Department Care Team (Late st Contact Info) Description 08/05/2016 Orders Only [facility] AT [facility] [address] [place] [address] Asa Mcnamara MD [facility] [address] [place] [address] Social History Tobacco Use Types Packs/Day Years Used Date Smoking Tobacco: Every Day Cigarettes Smokeless Tobacco: Never Alcohol Use Standard Drinks/Week Comments No 0 (1 standard drink = 0.6 oz pur e alcohol) Comments Unknown Sex and Gender Information Value Date Recorded Sex Assigned at Female 12/06/2019 3:36 PM PASSENGER TIRE BUILDER Legal Sex Female 5:20 PM CDT Gender Identity Female 12/06/2019 3:36 PM PASSENGER TIRE BUILDER Sexual Orientation Straight 12/06/2019 3: 36 PM PASSENGER TIRE BUILDER Occupation Industry Job Start Date Job [...] LAB ? Pat.Name: ??RODY CRUZ ? Pat.ID: ?[id number] ? St.Date: ?? 08/05/2016 ? Refer.MD: ??TERE [...] up stenting Surgery: ?? Iliac Stent BILAT [facility] 07/01 Medications:ASA, Plavix-Clopidogrel, Eliquis-Apixaban ++++++++++++++++++++++++++++++++++++ SUMMARY: ++++++++++++++++++++++++++++++++++++ [...] EXTREMITY VASCULAR LAB Pat.Name: RODY CRUZ Pat.ID: [id number] .Date: 08/05/2016 Refer.MD: TERE MONAE DO Exam Time: 3:34:00 PM Study Type:SCOTTIE VS Arterial Doppler KENZIE [facility] Age: 2 1960,55Y Sex: FEMALE Sonogrphr: Roxie Caba, RVT Reason for Study:PVD History / Clinical:OP STAT Procedures:Doppler waveforms, Digit PPG, Systolic Pressures w/KENZIE Race: C Risk Factors:Hypertension, Hyperlipidemia, Diabetes, COPD, Asthma, Back/spine disorder, CVA , Smoker present, Obesity, BMI Clinical Symptoms:Follow up stenting Surgery: Iliac Stent BILAT [facility] 07/01 Medications:ASA, Plavix-Clopidogrel, Eliquis-Apixaban ++++++++++++++++++++++++++++++++++++ SUMMARY: ++++++++++++++++++++++++++++++++++++ [...] on filedocumented in this encounter Care Teams Superannuation Clerk Relationship Specialty Start Date End Date Tere Monae DO PCP - General FAMILY PRACTICE 05/15/16 02/11/17 Asa Mcnamara MD [facility]. [facility] [address] [place] [address] [place] Paint Roller Assembler CARDIOVASCULAR DISEASE 05/15/16 documented as of this encounter
--- OUTSIDE RECORDS SUMMARY | 2024-11-12 05:30 | XMS_ITS | Encounter Summary ---
Author Organization [facility] Address [address] [facility] [place] [address] [place] [address] Care Team Providers Care Port Steward Name Role Phone Dane Sullivan Primary Care Provider [phone] Asa Mcnamara MD Unavailable [phone] Encounter Details Date Type Department Care Team (Late st Contact Info) Description 07/01/2016 CAR BLOCKER ONLY [facility] AT [facility] [address] [place] [address] Asa Mcnamara MD [place] [address] [place] [address] Social History Tobacco Use Types Packs/Day Years Used Date Smoking Tobacco: Every Day Cigarettes Smokeless Tobacco: Never Alcohol Use Standard Drinks/Week Comments No 0 (1 standard drink = 0.6 oz pur e alcohol) Comments Unknown Sex and Gender Information Value Date Recorded Sex Assigned at Female 12/06/2019 3:36 PM RAIL TRACK LAYER Legal Sex Female 5:20 PM CDT Gender Identity Female 12/06/2019 3:36 PM RAIL TRACK LAYER Sexual Orientation Straight 12/06/2019 3: 36 PM RAIL TRACK LAYER 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 BAD CREDIT COLLECTOR: GANGA GACRIA MD INDICATIONS: 1. Lifestyle limiting intermittent claudication. 2. Bilateral iliac disease. PROCEDURE: The patient was prepped and draped using aseptic techniques. Both groins were anesthetized using 1% lidocaine. Using ultrasound guidance, the right common femoral artery was cannulated. A 5-Hungarian sheath was placed. A J-tipped wire was advanced into the aorta. A crossover catheter was advanced over this wire. The left common iliac artery was cannulated. Angiogram was performed which was subsequently used as roadmap to cannulate the left common femoral artery. A 7-Hungarian 23 cm sheath was placed in the left femoral artery. The crossover catheter was now exchanged for a 5-Hungarian pigtail catheter. Aortogram was performed in the [...] artery. Heparin was used for anticoagulation. The 5-Hungarian sheath was exchanged for a 7-Hungarian sheath in the right femoral artery. The [...] adequately treated, the guidewires were removed. The 7-Hungarian sheath was secured to the skin. The [...] 07/03/2016 05:55 P ASA MCNAMARA M.D. A #[id number] P/ma cc: Michelle ISLAS D.O. documented in this encounter Plan of Treatment Not on file documented as of this encounter Visit Diagnoses Not on filedocumented in this encounter Care Teams Port Steward Relationship Specialty Start Date End Date Dane Sullivan DO PCP - General FAMILY PRACTICE 05/15/16 02/11/17 Asa Mcnamara MD [facility]. [place] [address] [place] [address] Stephen Ocular Care Technician CARDIOVASCULAR DISEASE 05/15/16 documented as of this encounter
--- OUTSIDE RECORDS SUMMARY | 2024-11-12 05:30 | XMS_ITS | Encounter Summary ---
Author Organization [facility] Address [facility] [place], [place] [address] [place] [address] Care Team Providers Care Cable Splicer Name Role Phone Dane Sullivan DO Primary Care Provider + [phone] Asa Mcnamara MD Unavailable [phone] Deisi Andrews MD Primary Care Provider [phone] Heber Adorno MD Primary Care Provider Unavailable Deisi Andrews MD Primary Care Provider [phone] Encounter Details Date Type Department Care Team (Latest Contact Info) Description 08/31/2016 Abstract [facility] Medical Group Social History Tobacco Use Types Packs/Day Years Used Date Smoking Tobacco: Every Day Cigarettes Smokeless Tobacco: Never Comments:3 cig a day Alcohol Use Standard Drinks/Week Comments No 0 (1 standard drink = 0.6 oz pur e alcohol) Comments Unknown Sex and Gender Information Value Date Recorded Sex Assigned at Female 12/06/2019 3:36 PM TRAINER Legal Sex Female 5:20 PM CDT Gender Identity Female 12/06/2019 3:36 PM TRAINER Sexual Orientation Straight 12/06/2019 3: 36 PM TRAINER Occupation Industry Job Start Date Job End Date Not on file Not on file Not on file Not on file documented as of this encounter Plan of Treatment Not on file documented as of this encounter Visit Diagnoses Not on filedocumented in this encounter Care Teams Cable Splicer Relationship Specialty Start Date End Date Dane Sullivan DO PCP - General FAMILY PRACTICE 05/15/16 02/11/17 Deisi Andrews MD [address] [place] [address] PCP - General FAMILY PRACTICE 02/13/17 03/10/17 Heber Adorno MD PCP - General 03/11/17 06/14/17 Deisi Andrews MD [address] [place] [address] PCP - General FAMILY PRACTICE 06/15/17 10/14/19 Asa Mcnamara MD [facility] [address] [place] [address] Stephen Block Sealer CARDIOVASCULAR DISEASE 05/15/16 documented as of this encounter
--- OUTSIDE RECORDS SUMMARY | 2024-11-12 05:30 | XMS_ITS | Encounter Summary ---
Author Organization [facility] Address [facility]6 [facility] [place], [place] [address] [place] [address] Care Team Providers Care Chip Separator Name Role Phone Dane Sullivan Primary Care Provider [phone] Asa Mcnamara MD Unavailable [phone] Deisi Andrews MD Primary Care Provider [phone] Heber Adorno MD Primary Care Provider Unavailable Deisi Andrews MD Primary Care Provider [phone] Encounter Details Date Type Department Care Team (Late st Contact Info) Description 08/25/2016 Abstract [facility] [address] [place], [place] [id number] Asa Mcnamara MD [address] [facility]. [facility] [address] [place], [place] [id number] Social History Tobacco Use Types Packs/Day Years Used Date Smoking Tobacco: Every Day Cigarettes Smokeless Tobacco: Never Comments:3 cig a day Alcohol Use Standard Drinks/Week Comments No 0 (1 standard drink = 0.6 oz pur e alcohol) Comments Unknown Sex and Gender Information Value Date Recorded Sex Assigned at Female 12/06/2019 3:36 PM WHEEL SETTER Legal Sex Female 5:20 PM CDT Gender Identity Female 12/06/2019 3:36 PM WHEEL SETTER Sexual Orientation Straight 12/06/2019 3: 36 PM WHEEL SETTER Occupation Industry Job Start Date Job [...] infarction documented in this encounter Care Teams Chip Separator Relationship Specialty Start Date End Date Dane Sullivan DO PCP - General FAMILY PRACTICE 05/15/16 02/11/17 Deisi Andrews MD [address] [place] [address] PCP - General FAMILY PRACTICE 02/13/17 03/10/17 Heber Adorno MD PCP - General 03/11/17 06/14/17 Deisi Andrews MD [address] [place] [address] PCP - General FAMILY PRACTICE 06/15/17 10/14/19 Asa Mcnamara MD [facility] [address] [place] [address] [place] Commercial Sales Representative CARDIOVASCULAR DISEASE 05/15/16 documented as of this encounter
--- OUTSIDE RECORDS SUMMARY | 2024-11-12 05:30 | XMS_ITS | Encounter Summary ---
Author Organization [facility] Address [facility]6 [facility] [place] [address] [place] [address] Care Team Providers Care Electronics System Mechanic Name Role Phone SullivanDane rowley Gricel FLORES Primary Care Provider [phone] Asa Mcnamara MD Unavailable [phone] Reason for Visit * Reason Onset Date Comments Medication 07/02/2016 Encounter Details Date Type Department Care Team (Late st Contact Info) Description 07/02/2016 Telephone [employer] [facility] AT [address] [address] Karen Barboza, imaging account manager Social History Tobacco Use Types Packs/Day Years Used Date Smoking Tobacco: Every Day Cigarettes Smokeless Tobacco: Never Alcohol Use Standard Drinks/Week Comments No 0 (1 standard drink = 0.6 oz pur e alcohol) Comments Unknown Sex and Gender Information Value Date Recorded Sex Assigned at Female 12/06/2019 3:36 PM RADIO MESSAGE ROUTER Legal Sex Female 5:20 PM CDT Gender Identity Female 12/06/2019 3:36 PM RADIO MESSAGE ROUTER Sexual Orientation Straight 12/06/2019 3: 36 PM RADIO MESSAGE ROUTER Occupation Industry Job Start Date Job End [...] filedocumented in this encounter Care Teams Electronics System Mechanic Relationship Specialty Start Date End Date Dane Sullivan DO PCP - General FAMILY PRACTICE 05/15/16 02/11/17 Asa Mcnamara MD [facility] [address] [place] [address] [place] Human Resources Analyst CARDIOVASCULAR DISEASE 05/15/16 documented as of this encounter
--- OUTSIDE RECORDS SUMMARY | 2024-11-12 05:30 | XMS_ITS | Encounter Summary ---
Author Organization [facility] Address [address] [facility]. [place], [place] [address] [place] [address] Care Team Providers Care Legal Job Titles Name Role Phone Dane Sullivan DO Primary Care Provider + [phone] Asa Mcnamara MD Unavailable [phone] Deisi Andrews MD Primary Care Provider [phone] Heber Adorno MD Primary Care Provider Unavailable Dane Sullivan DO Primary Care Provider + [phone] Dane Sullivan DO Primary Care Provider + [phone] Deisi Andrews MD Primary Care Provider [phone] Encounter Details Date Type Department Care Team (Latest Contact Info) Description 04/17/2016 Abstract [facility] Medical Group Heber Adorno MD Social History Tobacco Use Types Packs/Day Years Used Date Smoking Tobacco: Never Assessed Comments Unknown Sex and Gender Information Value Date Recorded Sex Assigned at Female 12/06/2019 3:36 PM LEAD PHP DEVELOPER Legal Sex Female 5:20 PM CDT Gender Identity Female 12/06/2019 3:36 PM LEAD PHP DEVELOPER Sexual Orientation Straight 12/06/2019 3: 36 PM LEAD PHP DEVELOPER documented as of this encounter Procedure Notes * Dane Sullivan DO - 04/17/2016 3:15 PM CDT [place] [address] Patient: RODY CRUZ [facility] Rec#: [id number] Birthdate: 1960 Admit/Svce Date: 04/17/2016 Disch Date: Attending Md: ASA MCNAMARA MD CHART DOCUMENT Echocardiography Report Pat.Name: RODY CRUZ Pat.ID: [id number] St.Date: 04/17/2016 Refer.MD: DOV Exam Time: 9:35:00 AM Study Type:ECHO WITH CARDIAC DOPPLER COMP Height: 62in Weight: 221.54lb BSA: 2 m2 Age: 2 1960,55Y Sex: FEMALE BP: 120/70 HR: 98 bpm Sonogrphr: Cristel Lundberg [facility] Pat. Stat.:Outpatient Reason for Study:Shortness of breath [...] on filedocumented in this encounter Care Teams Legal Job Titles Relationship Specialty Start Date End Date Dane Sullivan DO PCP - General FAMILY PRACTICE 05/15/16 02/11/17 Deisi Andrews MD [address] [place] [address] PCP - General FAMILY PRACTICE 02/13/17 03/10/17 Heber Adorno MD PCP - General 03/11/17 06/14/17 Dane Sullivan DO PCP - General 05/04/16 05/14/16 Dane Sullivan DO PCP - General 04/17/16 05/03/16 Deisi Andrews MD [address] [place] [address] PCP - General FAMILY PRACTICE 06/15/17 10/14/19 Asa Mcnamara MD [facility]. [address] [place] [address] [place] Die Cast Engineer CARDIOVASCULAR DISEASE 05/15/16 documented as of this encounter
--- OUTSIDE RECORDS SUMMARY | 2024-11-12 05:30 | XMS_ITS | Encounter Summary ---
Author Organization [facility] Address [facility]6 [facility]. [place], [place] [address] [place] [address] Care Team Providers Care Candle Making Supervisor Name Role Phone Dane Sullivan DO Primary Care Provider [phone] Asa Mcnamara MD Unavailable [phone] Deisi Andrews MD Primary Care Provider [phone] Heber Adorno MD Primary Care Provider Unavailable Deisi Andrews MD Primary Care Provider [phone] Encounter Details Date Type Department Care Team (Latest Contact Info) Description 06/02/2016 Abstract [facility] Medical Group Social History Tobacco Use Types Packs/Day Years Used Date Smoking Tobacco: Every Day Cigarettes Smokeless Tobacco: Never Alcohol Use Standard Drinks/Week Comments No 0 (1 standard drink = 0.6 oz pur e alcohol) Comments Unknown Sex and Gender Information Value Date Recorded Sex Assigned at Female 12/06/2019 3:36 PM ANALOG IC DESIGN ENGINEER Legal Sex Female 5:20 PM CDT Gender Identity Female 12/06/2019 3:36 PM ANALOG IC DESIGN ENGINEER Sexual Orientation Straight 12/06/2019 3: 36 PM ANALOG IC DESIGN ENGINEER 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 Not on file Not on file documented as of this encounter Plan of Treatment Not on file documented as of this encounter Visit Diagnoses Not on filedocumented in this encounter Care Teams Candle Making Supervisor Relationship Specialty Start Date End Date Dane Sullivan DO PCP - General FAMILY PRACTICE 05/15/16 02/11/17 Deisi Andrews MD [address] [place] [address] PCP - General FAMILY PRACTICE 02/13/17 03/10/17 Heber Adorno MD PCP - General 03/11/17 06/14/17 Deisi Andrews MD [address] [place] [address] PCP - General FAMILY PRACTICE 06/15/17 10/14/19 Asa Mcnamara MD [facility] [address] [place] [address] [employer] Fab[employer] Accessories Estimator CARDIOVASCULAR DISEASE 05/15/16 documented as of this encounter
--- OUTSIDE RECORDS SUMMARY | 2024-11-12 05:30 | XMS_ITS | Encounter Summary ---
Author Organization [facility] Address [address] [facility]. [place], [place] [address] [place] [address] Care Team Providers Care Coater Operator Insulation Board Name Role Phone Dane Sullivan DO Primary Care Provider [phone] Encounter Details Date Type Department Care Team (Late st Contact Info) Description 04/17/2016 [facility] [address] [place] [address] , Heber Trinidad MD Social History Tobacco Use Types Packs/Day Years Used Date Smoking Tobacco: Never Assessed Comments Unknown Sex and Gender Information Value Date Recorded Sex Assigned at Female 12/06/2019 3:36 PM DOG HANDLER OR TRAINER Legal Sex Female 5:20 PM CDT Gender Identity Female 12/06/2019 3:36 PM DOG HANDLER OR TRAINER Sexual Orientation Straight 12/06/2019 3: 36 PM DOG HANDLER OR TRAINER documented as of this encounter Plan of Treatment Not on file documented as of this encounter Visit Diagnoses Not on filedocumented in this encounter Care Teams Coater Operator Insulation Board Relationship Specialty Start Date End Date Dane Sullivan DO PCP - General 04/17/16 05/03/16 documented as of this encounter
--- OUTSIDE RECORDS SUMMARY | 2024-11-12 05:30 | XMS_ITS | Encounter Summary ---
Author Organization [facility] Address [address] [facility] [place] [address] [place] [address] Care Team Providers Care Golf Cart Attendant Name Role Phone Dane Sullivan Primary Care Provider [phone] Asa Mcnamara MD Unavailable [phone] Encounter Details Date Type Department Care Team (Late st Contact Info) Description 08/25/2016 Orders Only [facility] AT [facility] [address] [place] [address] Asa Mcnamara MD [address] [address] Social History Tobacco Use Types Packs/Day Years Used Date Smoking Tobacco: Every Day Cigarettes Smokeless Tobacco: Never Comments:3 cig a day Alcohol Use Standard Drinks/Week Comments No 0 (1 standard drink = 0.6 oz pur e alcohol) Comments Unknown Sex and Gender Information Value Date Recorded Sex Assigned at Female 12/06/2019 3:36 PM BLUE LINE OPERATOR Legal Sex Female 5:20 PM CDT Gender Identity Female 12/06/2019 3:36 PM BLUE LINE OPERATOR Sexual Orientation Straight 12/06/2019 3: 36 PM BLUE LINE OPERATOR Occupation Industry Job Start Date [...] CDT) 08/25/2016 10:0 6 AM CDT Narrative [facility] - 08/25/2016 12:00 AM CDT ?CAROTID DUPLEX IMAGING ? VASCULAR LAB Pat.Name: ??RODY CRUZ ? Pat.ID: ?[id number] ? St.Date: ?? 08/25/2016 ?Exam Time: 10:06:00 [...] IMAGING VASCULAR LAB Pat.Name: RODY CRUZ Pat.ID: [id number] .Date: 08/25/2016 Exam Time: 10:06:00 AM Study [...] Mcnamara MD [facility] Final Resu lt [facility] documented in this encounter Visit Diagnoses Not on filedocumented in this encounter Care Teams Golf Cart Attendant Relationship Specialty Start Date End Date Dane Sullivan DO PCP - General FAMILY PRACTICE 05/15/16 02/11/17 Asa Mcnamara MD [facility] [address] [place] [address] [place] English Composition Instructor CARDIOVASCULAR DISEASE 05/15/16 documented as of this encounter
--- OUTSIDE RECORDS SUMMARY | 2024-11-12 05:30 | XMS_ITS | Encounter Summary ---
Author Organization [facility] Address [address] [facility] [place] [address] [place] [address] Care Team Providers Care Strap Machine Operator Name Role Phone Dane Sullivan Primary Care Provider [phone] Asa Mcnamara MD Unavailable [phone] Encounter Details Date Type Department Care Team (Late st Contact Info) Description 07/01/2016 Orders Only [facility] AT [address] [address] Asa Mcnamara MD [address] [address] Social History Tobacco Use Types Packs/Day Years Used Date Smoking Tobacco: Every Day Cigarettes Smokeless Tobacco: Never Alcohol Use Standard Drinks/Week Comments No 0 (1 standard drink = 0.6 oz pur e alcohol) Comments Unknown Sex and Gender Information Value Date Recorded Sex Assigned at Female 12/06/2019 3:36 PM NURSING CONSULTANT Legal Sex Female 5:20 PM CDT Gender Identity Female 12/06/2019 3:36 PM NURSING CONSULTANT Sexual Orientation Straight 12/06/2019 3: 36 PM NURSING CONSULTANT Occupation Industry Job Start Date Job [...] system documented in this encounter Care Teams Strap Machine Operator Relationship Specialty Start Date End Date Dane Sullivan DO PCP - General FAMILY PRACTICE 05/15/16 02/11/17 Asa Mcnamara MD [facility] [address] [place] [address] [place] Mathematics Academic Chair CARDIOVASCULAR DISEASE 05/15/16 documented as of this encounter
--- OUTSIDE RECORDS SUMMARY | 2024-11-12 05:30 | XMS_ITS | Encounter Summary ---
Author Organization [facility] Address [facility] [place], [place] [address] [place] [address] Care Team Providers Care Shoe Trimmer Name Role Phone Dane Sullivan DO Primary Care Provider + [phone] Asa Mcnamara MD Unavailable [phone] Deisi Andrews MD Primary Care Provider [phone] Heber Adorno MD Primary Care Provider Unavailable Deisi Andrews MD Primary Care Provider [phone] Encounter Details Date Type Department Care Team (Latest Contact Info) Description 06/30/2016 Abstract [facility] Medical Group Heber Adorno MD Social History Tobacco Use Types Packs/Day Years Used Date Smoking Tobacco: Every Day Cigarettes Smokeless Tobacco: Never Alcohol Use Standard Drinks/Week Comments No 0 (1 standard drink = 0.6 oz pur e alcohol) Comments Unknown Sex and Gender Information Value Date Recorded Sex Assigned at Female 12/06/2019 3:36 PM HISTORY FACULTY MEMBER Legal Sex Female 5:20 PM CDT Gender Identity Female 12/06/2019 3:36 PM HISTORY FACULTY MEMBER Sexual Orientation Straight 12/06/2019 3: 36 PM HISTORY FACULTY MEMBER 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 [address] Patient: RODY CRUZ [facility] Rec#: [id number] Birthdate: 1960 Admit/Svce Date: 06/30/2016 Disch Date: Attending Md: ELI HAY MD CHART DOCUMENT PREOPERATIVE DIAGNOSIS: Lumbar radiculopathy. POSTOPERATIVE DIAGNOSIS: Lumbar radiculopathy. SURGERY PERFORMED: Right L4, L5, and S1 lumbar transforaminal epidural steroid injection under fluoroscopy. DATE: 06/30/2016 SURGEON: ELI HAY MD RESOLUTION REP: LEVELS: Right L4, L5 and S1. ANESTHESIA: [...] mL of 0.25% bupivacaine injected per level. Mary Esther removed. No complications. POST PROCEDURE: Patient tolerated procedure well and observed for approximately 20-30 minutes prior to discharge. Discharged in stable condition with appropriate post procedure instructions. Patient will be called over the next few days for follow up. There were no complications. Electronically Signed By: ELI HAY M.D. 07/01/2016 07:51 A ELI HAY M.D. A #[id number] P/ma cc: Michelle EPSTEIN D.O. documented in this encounter Plan of Treatment Not on file documented as of this encounter Visit Diagnoses Not on filedocumented in this encounter Care Teams Shoe Trimmer Relationship Specialty Start Date End Date Dane Sullivan DO PCP - General FAMILY PRACTICE 05/15/16 02/11/17 Deisi Andrews MD [address] [place] [address] PCP - General FAMILY PRACTICE 02/13/17 03/10/17 Heber Adorno MD PCP - General 03/11/17 06/14/17 Deisi Andrews MD [address] [place] [address] PCP - General FAMILY PRACTICE 06/15/17 10/14/19 Asa Mcnamara MD [facility] [address] [place] [address] [employer] Technologist CARDIOVASCULAR DISEASE 05/15/16 documented as of this encounter
--- OUTSIDE RECORDS SUMMARY | 2024-11-12 05:30 | XMS_ITS | Encounter Summary ---
Author Organization [facility] Address [facility]6 [facility]. [place], [place] [address] [place] [address] Care Team Providers Care Filler Shaker Name Role Phone Dane Sullivan DO Primary Care Provider [phone] Asa Mcnamara MD Unavailable [phone] Reason for Visit * Reason Comments Vascular Lab Study (SCAN) Encounter Details Date Type Department Care Team (Late st Contact Info) Description 07/01/2016 Scan [facility] [address] [place] [id number] Scanned, Documents Vascular Lab Study (SCAN) Social History Tobacco Use Types Packs/Day Years Used Date Smoking Tobacco: Every Day Cigarettes Smokeless Tobacco: Never Alcohol Use Standard Drinks/Week Comments No 0 (1 standard drink = 0.6 oz pur e alcohol) Comments Unknown Sex and Gender Information Value Date Recorded Sex Assigned at Female 12/06/2019 3:36 PM TECHNICAL PROFESSIONAL Legal Sex Female 5:20 PM CDT Gender Identity Female 12/06/2019 3:36 PM TECHNICAL PROFESSIONAL Sexual Orientation Straight 12/06/2019 3: 36 PM TECHNICAL PROFESSIONAL 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 Not on file Not on file documented as of this encounter Plan of Treatment Not on file documented as of this encounter Procedures Procedure Name Priority Date/Time Associated Diagnosis Comments VASCULAR LAB GENERIC (SCAN ORDER) Routine 01/14/2017 11:51 AM TECHNICAL PROFESSIONAL documented in this encounter Results * VASCULAR LAB (01/14/2017 11:51 AM TECHNICAL PROFESSIONAL) us Documents Scanned SCANNING Final Result documented in this encounter Visit Diagnoses Not on filedocumented in this encounter Care Teams Filler Shaker Relationship Specialty Start Date End Date Dane Sullivan DO PCP - General FAMILY PRACTICE 05/15/16 02/11/17 Asa Mcnamara MD [facility] [address] [place] [address] [place] Certified Nutritionist CARDIOVASCULAR DISEASE 05/15/16 documented as of this encounter
--- OUTSIDE RECORDS SUMMARY | 2024-11-12 05:30 | XMS_ITS | Encounter Summary ---
Author Organization [facility] Address [address] [facility]. [place], [place] [address] [place] [address] Care Team Providers Care Php Mysql Developer Name Role Phone Dane Sullivan DO Primary Care Provider + [phone] Asa Mcnamara MD Unavailable [phone] Diesi Andrews MD Primary Care Provider [phone] Heber Adorno MD Primary Care Provider Unavailable Dane Sullivan DO Primary Care Provider + [phone] Dane Sullivan DO Primary Care Provider + [phone] Deisi Andrews MD Primary Care Provider [phone] Encounter Details Date Type Department Care Team (Latest Contact Info) Description 04/30/2016 Abstract [facility] Medical Group Social History Tobacco Use Types Packs/Day Years Used Date Smoking Tobacco: Never Assessed Comments Unknown Sex and Gender Information Value Date Recorded Sex Assigned at Female 12/06/2019 3:36 PM DIRECTOR OF BUSINESS CONTINUITY Legal Sex Female 5:20 PM CDT Gender Identity Female 12/06/2019 3:36 PM DIRECTOR OF BUSINESS CONTINUITY Sexual Orientation Straight 12/06/2019 3: 36 PM DIRECTOR OF BUSINESS CONTINUITY documented as of this encounter Plan of Treatment Not on file documented as of this encounter Visit Diagnoses Not on filedocumented in this encounter Care Teams Php Mysql Developer Relationship Specialty Start Date End Date Dane Sullivan DO PCP - General FAMILY PRACTICE 05/15/16 02/11/17 Deisi Andrews MD [address] [place] [address] PCP - General FAMILY PRACTICE 02/13/17 03/10/17 Heber Adorno MD PCP - General 03/11/17 06/14/17 Dane Sullivan DO PCP - General 05/04/16 05/14/16 Dane Sullivan DO PCP - General 04/17/16 05/03/16 Deisi Andrews MD [address] [place] [address] [place] [address] PCP - General FAMILY PRACTICE 06/15/17 10/14/19 Asa Mcnamara MD [facility] [address] [place] [address] [place] Rn Palliative CARDIOVASCULAR DISEASE 05/15/16 documented as of this encounter
--- OUTSIDE RECORDS SUMMARY | 2024-11-12 05:30 | XMS_ITS | Encounter Summary ---
Author Organization [facility] Address [address] [facility] [place], [place] [address] [place] [address] Care Team Providers Care Game Engineer Name Role Phone Dane Sullivan DO Primary Care Provider + [phone] Asa Mcnamara MD Unavailable [phone] Deisi Andrews MD Primary Care Provider [phone] Heber Adorno MD Primary Care Provider Unavailable Dane Sullivan DO Primary Care Provider + [phone] Dane Sullivan DO Primary Care Provider + [phone] Deisi Andrews MD Primary Care Provider [phone] Encounter Details Date Type Department Care Team (Latest Contact Info) Description 04/20/2016 Abstract [facility] Medical Group Heber Adorno MD Social History Tobacco Use Types Packs/Day Years Used Date Smoking Tobacco: Never Assessed Comments Unknown Sex and Gender Information Value Date Recorded Sex Assigned at Female 12/06/2019 3:36 PM TRUCK HOPPER Legal Sex Female 5:20 PM CDT Gender Identity Female 12/06/2019 3:36 PM TRUCK HOPPER Sexual Orientation Straight 12/06/2019 3: 36 PM TRUCK HOPPER documented as of this encounter Procedure Notes * Dane Sullivan DO - 04/20/2016 5:30 PM CDT [place] [address] Patient: RODY CRUZ [facility] Rec#: [id number] Birthdate: 1960 Admit/Svce Date: 04/17/2016 Disch Date: Attending Md: ASA MCNAMARA MD CHART DOCUMENT MYOCARDIAL PERFUSION SCAN Pat.Name: RODY CRUZ Pat.ID: [id number] St.Date: 04/17/2016 Refer.MD: Dr. Sullivan Exam Time: [...] 130/80 O2 sat: 96 % Max RPP: [id number] Symptoms and Complications: Terminated: Protocol completed Symptoms: Shortness of breath, Nausea Complications: None Stress ECG Interp: Sinus tachycardia, no ischemic changes Signed 04/20/2016 05:27 PM Asa Mcnamara M.D. cc: Michelle ISLAS D.O. documented in this encounter Plan of Treatment Not on file documented as of this encounter Visit Diagnoses Not on filedocumented in this encounter Care Teams Game Engineer Relationship Specialty Start Date End Date Dane Sullivan DO PCP - General FAMILY PRACTICE 05/15/16 02/11/17 Deisi Andrews MD [address] [place] [address] [place] [address] PCP - General FAMILY PRACTICE 02/13/17 03/10/17 Heber Adorno MD PCP - General 03/11/17 06/14/17 Dane Sullivan DO PCP - General 05/04/16 05/14/16 aDne Sullivan DO PCP - General 04/17/16 05/03/16 Deisi Andrews MD [address] [place] [address] [place] [address] PCP - General FAMILY PRACTICE 06/15/17 10/14/19 Asa Mcnamara MD [facility]. [facility] [address] [place] [address] Stephen Asphalt Paver Operator CARDIOVASCULAR DISEASE 05/15/16 documented as of this encounter
--- OUTSIDE RECORDS SUMMARY | 2024-11-12 05:30 | XMS_ITS | Encounter Summary ---
Author Organization [facility] Address [facility]6 [facility]. [place], [place] [address] [place] [address] Care Team Providers Care Sewing Machine Adjuster Name Role Phone Dane Sullivan Primary Care Provider + [phone] Asa Mcnamara MD Unavailable [phone] Deisi Andrews MD Primary Care Provider [phone] Heber Adorno MD Primary Care Provider Unavailable Deisi Andrews MD Primary Care Provider [phone] Encounter Details Date Type Department Care Team (Late st Contact Info) Description 08/05/[address] [facility] [address] [place], [place] [id number] Asa Mcnamara MD Three [facility]. [facility] [address] [place], [place] [id number] Social History Tobacco Use Types Packs/Day Years Used Date Smoking Tobacco: Every Day Cigarettes Smokeless Tobacco: Never Alcohol Use Standard Drinks/Week Comments No 0 (1 standard drink = 0.6 oz pur e alcohol) Comments Unknown Sex and Gender Information Value Date Recorded Sex Assigned at Female 12/06/2019 3:36 PM WORKERS' COMPENSATION CLAIMS EXAMINER Legal Sex Female 5:20 PM CDT Gender Identity Female 12/06/2019 3:36 PM WORKERS' COMPENSATION CLAIMS EXAMINER Sexual Orientation Straight 12/06/2019 3: 36 PM WORKERS' COMPENSATION CLAIMS EXAMINER 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 Not on file Not on file documented as of this encounter Plan of Treatment Not on file documented as of this encounter Visit Diagnoses Diagnosis Peripheral vascular disease (CMS/HCC) Peripheral vascular disease, unspecified documented in this encounter Care Teams Sewing Machine Adjuster Relationship Specialty Start Date End Date Dane Sullivan DO PCP - General FAMILY PRACTICE 05/15/16 02/11/17 Deisi Andrews MD [address] [place] [address] PCP - General FAMILY PRACTICE 02/13/17 03/10/17 Heber Adorno MD PCP - General 03/11/17 06/14/17 Deisi Andrews MD [address] [place] [address] PCP - General FAMILY PRACTICE 06/15/17 10/14/19 Asa Mcnamara MD [facility]. [facility] [address] [place] [address] Stephen Fur Finisher Tailor CARDIOVASCULAR DISEASE 05/15/16 documented as of this encounter
--- OUTSIDE RECORDS SUMMARY | 2024-11-12 05:30 | XMS_ITS | Encounter Summary ---
Author Organization [facility] Address [address] [facility]. [place], [place] [address] [place] [address] Care Team Providers Care Floor Plan Adjuster Name Role Phone Dane Sullivan DO Primary Care Provider [phone] Encounter Details Date Type Department Care Team (Late st Contact Info) Description 04/20/2016 [facility] [address] [place] [address] , Heber Trinidad MD Social History Tobacco Use Types Packs/Day Years Used Date Smoking Tobacco: Never Assessed Comments Unknown Sex and Gender Information Value Date Recorded Sex Assigned at Female 12/06/2019 3:36 PM MANAGEMENT TRAINEE Legal Sex Female 5:20 PM CDT Gender Identity Female 12/06/2019 3:36 PM MANAGEMENT TRAINEE Sexual Orientation Straight 12/06/2019 3: 36 PM MANAGEMENT TRAINEE documented as of this encounter Plan of Treatment Not on file documented as of this encounter Visit Diagnoses Not on filedocumented in this encounter Care Teams Floor Plan Adjuster Relationship Specialty Start Date End Date Dane Sullivan DO PCP - General 04/17/16 05/03/16 documented as of this encounter
--- OUTSIDE RECORDS SUMMARY | 2024-11-12 05:30 | XMS_ITS | Encounter Summary ---
Author Organization [facility] Address [facility]. [place], [place] [address] [place] [address] Care Team Providers Care Inventory Audit Clerk Name Role Phone Tere Monae DO Primary Care Provider + [phone] Asa Mcnamara MD Unavailable [phone] Deisi Andrews MD Primary Care Provider [phone] Heber Adorno MD Primary Care Provider Unavailable Tere Monae DO Primary Care Provider + [phone] Deisi Andrews MD Primary Care Provider [phone] Encounter Details Date Type Department Care Team (Latest Contact Info) Description 05/04/2016 Abstract [facility] , Generic MD Vivi Social History Tobacco Use Types Packs/Day Years Used Date Smoking Tobacco: Never Assessed Comments Unknown Sex and Gender Information Value Date Recorded Sex Assigned at Female 12/06/2019 3:36 PM SENIOR ENGINEER Legal Sex Female 5:20 PM CDT Gender Identity Female 12/06/2019 3:36 PM SENIOR ENGINEER Sexual Orientation Straight 12/06/2019 3: 36 PM SENIOR ENGINEER documented as of this encounter Procedure Notes * Tere Monae DO - 05/04/2016 10:10 AM CDT [place] [address] Patient: RODY CRUZ MEGA [facility] Rec#: [id number] Birthdate: 1960 Admit/Svce Date: 05/04/2016 Disch Date: Attending Md: ELI HAY MD CHART DOCUMENT PREOPERATIVE DIAGNOSIS: Lumbar radiculopathy. POSTOPERATIVE DIAGNOSIS: Lumbar radiculopathy. SURGERY PERFORMED: Right L4-5 lumbar interlaminar epidural steroid injection under fluoroscopy. DATE: 05/04/2016 SURGEON: ELI HAY MD RESIDENCE MANAGER: REFERRING PHYSICIAN: CAPT. TERE MONAE D.O. LEVEL: [...] 05/05/2016 09:56 A ELI HAY M.D. A #[id number] P/ma cc: Michelle EPSTEIN D.O. documented in this encounter Plan of Treatment Not on file documented as of this encounter Visit Diagnoses Not on filedocumented in this encounter Care Teams Inventory Audit Clerk Relationship Specialty Start Date End Date Tere Monae DO PCP - General FAMILY PRACTICE 05/15/16 02/11/17 Deisi Andrews MD [address] [place] [address] PCP - General FAMILY PRACTICE 02/13/17 03/10/17 Heber Adorno MD PCP - General 03/11/17 06/14/17 Tere Monae DO PCP - General 05/04/16 05/14/16 Deisi Andrews MD [address] [place] [address] PCP - General FAMILY PRACTICE 06/15/17 10/14/19 Asa Mcnamara MD [facility]. [address] [place] [address] Stephne Piler CARDIOVASCULAR DISEASE 05/15/16 documented as of this encounter
--- OUTSIDE RECORDS SUMMARY | 2024-11-12 05:30 | XMS_ITS | Encounter Summary ---
Author Organization [facility] Address Counts include 234 beds at the [facility]. [place], [place] [address] [place] [address] Care Team Providers Care Permit Technician Name Role Phone Dane Sullivan DO Primary Care Provider [phone] Asa Mcnamara MD Unavailable [phone] Encounter Details Date Type Department Care Team (Late st Contact Info) Description 05/25/2016 Scan [facility] AT [address] [id number] Scanned, Documents Social History Tobacco Use Types Packs/Day Years Used Date Smoking Tobacco: Every Day Cigarettes Smokeless Tobacco: Never Alcohol Use Standard Drinks/Week Comments No 0 (1 standard drink = 0.6 oz pur e alcohol) Comments Unknown Sex and Gender Information Value Date Recorded Sex Assigned at Female 12/06/2019 3:36 PM SCHOOL BUS TECHNICIAN Legal Sex Female 5:20 PM CDT Gender Identity Female 12/06/2019 3:36 PM SCHOOL BUS TECHNICIAN Sexual Orientation Straight 12/06/2019 3: 36 PM SCHOOL BUS TECHNICIAN 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 [facility] [address] [place] [address] Hermosa Exhibit Cleaner CARDIOVASCULAR DISEASE 05/15/16 documented as of this encounter
--- OUTSIDE RECORDS SUMMARY | 2024-11-12 05:30 | XMS_ITS | Encounter Summary ---
Author Organization [facility] Address [address] [facility] [place] [address] [place] [address] Care Team Providers Care Lithostripper Name Role Phone Dane Sullivan DO Primary Care Provider + [phone] Asa Mcnamara MD Unavailable [phone] Deisi Andrews MD Primary Care Provider [phone] Heber Adorno MD Primary Care Provider Unavailable Dane Sullivan DO Primary Care Provider + [phone] Deisi Andrews MD Primary Care Provider [phone] Encounter Details Date Type Department Care Team (Late st Contact Info) Description 05/07/2016 Abstract [facility] Family Medicine - [place] [address] [place] [address] Dane Sullivan DO [address] [id number] Social History Tobacco Use Types Packs/Day Years Used Date Smoking Tobacco: Never Assessed Comments Unknown Sex and Gender Information Value Date Recorded Sex Assigned at Female 12/06/2019 3:36 PM PERSONAL PROPERTY APPRAISER Legal Sex Female 5:20 PM CDT Gender Identity Female 12/06/2019 3:36 PM PERSONAL PROPERTY APPRAISER Sexual Orientation Straight 12/06/2019 3: 36 PM PERSONAL PROPERTY APPRAISER documented as of this encounter Last Filed [...] COPD Her AC went out recently, and [facility] is offering free AC but needs [...] Smoking (305.1) (F17.200) Immunizations Influenza --- Series1: [id number] Current Meds 1. AmLODIPine Besylate 5 MG Oral Tablet; TAKE 1 TABLET DAILY DIRECTED; Therapy: 25Sep2015 to (Evaluate:22Sep2016) Requested for: 01Apr2016; Last Rx:26Mar2016 Ordered Rx By: Dane Sullivan; Dispense: 90 Days ; #:90 Tablet; Refill: 1; For: Hypertension; ADAM = N; Verified Transmission to [facility]; Last Updated By: Marilee Walker; 04/01/2016 8:50:15 AM 2. Aspirin 325 MG Oral Tablet; Therapy: (Recorded:01Apr2016) to Recorded Dispense: 0 Days ; #: Sufficient TABS; Refill: 0; ADAM = N; Record; Last Updated By: Marilee Walker; 04/01/2016 8:50:14 AM 3. Cyclobenzaprine HCl - 10 MG Oral Tablet; TAKE ONE TABLET BY MOUTH ONCE TO TWICE DAILY NEEDED; Therapy: 27Nov2015 to (Evaluate:64Phc3665) Requested for: 16Apr2016; Last Rx:16Apr2016 Ordered Rx By: Dane Sullivan; Dispense: 30 Days ; #:60 TAB; Refill: 2; For: Chronic pain; ADAM = N; Verified Transmission to [facility]; Last Updated By: Ezra Baez; 04/16/2016 9:42:21 AM 4. Losartan Potassium 100 MG Oral Tablet; TAKE ONE TABLET BY MOUTH ONCE DAILY; Therapy: 10Mar2016 to (Evaluate:05Dec2016) Requested for: 01Apr2016; Last Rx:10Mar2016 Ordered Rx By: Dane Sullivan; Dispense: 90 Days ; #:90 TAB; Refill: 2; For: Hypertension; ADAM = N; Verified Transmission to [facility]; Last Updated By: Marilee Walker; 04/01/2016 8:50:14 AM 5. MetFORMIN HCl - 500 MG Oral Tablet; TAKE ONE TABLET BY MOUTH TWICE DAILY WITH MEALS; Therapy: 10Mar2016 to (Evaluate:66Skp4614) Requested for: 01Apr2016; Last Rx:10Mar2016 Ordered Rx By: Dane Sullivan; Dispense: 30 Days ; #:180 TAB; Refill: 2; For: Health Maintenance; ADAM = N;Verified Transmission to [facility]; Last Updated By: Marilee Walker; 04/01/2016 8:50:14AM 6. Montelukast Sodium 10 MG Oral Tablet; TAKE 1 TABLET DAILY Requested for: 01Apr2016; Last Rx:[id number] Ordered Rx By: Dane Sullivan; Dispense: 90 Days ; #:90 Tablet; Refill: 1; For: Chronic obstructive pulmonary disease; ADAM = N; Verified Transmission to [facility]; Last Updated By: Marilee Walker; 04/01/2016 8:50:14 AM 7. Pravastatin Sodium 40 MG Oral Tablet; TAKE ONE TABLET BY MOUTH ONCE DAILY; Therapy: 70Bye9833 to (Evaluate:44Nna9681) Requested for: 01Apr2016; Last Rx:12Feb2016 Ordered Rx By: Dane Sullivan; Dispense: 90 Days ; #:90 TAB; Refill: 2; For: Hyperlipidemia; ADAM = N; Verified Transmission to [facility]; Last Updated By: Marilee [...] DAILY; Therapy: 27Mar2016 to (Evaluate:23Sep2016) Requested for: 63Onu9058; Last Rx:[id number] Ordered Rx By: Dane Sullivan; Dispense: 90 Days ; #:27 EA; Refill: 1; For: Chronic obstructive pulmonary disease; ADAM = N; Verified Transmission to [facility]; Last Updated By: Marilee Walker; 04/01/2016 8:50:14 AM 11. Ventolin HFA 108 (90 Base) MCG/ACT Inhalation Aerosol Solution; INHALE TWO PUFFS BY MOUTH EVERY 4 TO 6 HOURS NEEDED; Therapy: 47Qkm0072 to (Evaluate:22Feb2016) Requested for: 23Dje1856; Last Rx:[id number] Ordered Rx By: Dane Sullivan; Dispense: 17 Days ; #:18 EA; Refill: 3; For: Chronic obstructive pulmonary disease; ADAM = N; Verified Transmission to [facility]; Last Updated By: Marilee Walker; 04/01/2016 8:50:15 AM 12. Xanax 1 MG Oral Tablet; Therapy: (Recorded:60Zxa0258) to Recorded Dispense: 0 Days ; #: [...] with vomiting; ADAM = N; Sent To: [facility] Discussion/Summary COPD note written [...] Dane Sullivan D.O.; May 07 2016 8:18AM PERSONAL PROPERTY APPRAISER (Author) documented in this encounter Miscellaneous Notes [...] by:Dane Sullivan D.O. May 07 2016 8:19AM PERSONAL PROPERTY APPRAISER Author documented in this encounter Plan of Treatment Not on file documented as of this encounter Visit Diagnoses Not on filedocumented in this encounter Care Teams Lithostripper Relationship Specialty Start Date End Date Dane Sullivan DO PCP - General FAMILY PRACTICE 05/15/16 02/11/17 Deisi Andrews MD [address] [place] [address] DANNIE [place] [address] PCP - General FAMILY PRACTICE 02/13/17 03/10/17 Heber Adorno MD PCP - General 03/11/17 06/14/17 Dane Sullivan DO PCP - General 05/04/16 05/14/16 Deisi Andrews MD [address] [place] [address] [place] [address] PCP - General FAMILY PRACTICE 06/15/17 10/14/19 Asa Mcnamara MD [facility]. [facility] [address] [place] [address] [place] Slitter And Rewinder Machine Operator CARDIOVASCULAR DISEASE 05/15/16 documented as of this encounter
--- OUTSIDE RECORDS SUMMARY | 2024-11-12 05:30 | XMS_ITS | Encounter Summary ---
Author Organization [facility] Address [facility] [address] [place] [address] Care Team Providers Care Time Clock Inspector Name Role Phone Sullivan, Dane Gricel FLORES Primary Care Provider [phone] Asa Mcnamara MD Unavailable [phone] Reason for Visit * Reason Onset Date Comments Question 06/25/2016 Encounter Details Date Type Department Care Team (Late st Contact Info) Description 06/25/2016 Telephone [facility] AT [address] [address] Katt Walter, RN Question Social History Tobacco Use Types Packs/Day Years Used Date Smoking Tobacco: Every Day Cigarettes Smokeless Tobacco: Never Alcohol Use Standard Drinks/Week Comments No 0 (1 standard drink = 0.6 oz pur e alcohol) Comments Unknown Sex and Gender Information Value Date Recorded Sex Assigned at Female 12/06/2019 3:36 PM DIRECTOR IT Legal Sex Female 5:20 PM CDT Gender Identity Female 12/06/2019 3:36 PM DIRECTOR IT Sexual Orientation Straight 12/06/2019 3: 36 PM DIRECTOR IT Occupation Industry Job Start Date Job End [...] filedocumented in this encounter Care Teams Time Clock Inspector Relationship Specialty Start Date End Date Dane Sullivan DO PCP - General FAMILY PRACTICE 05/15/16 02/11/17 Asa Mcnamara MD [facility]. [facility] [address] [place] [address] Stephen Final Assembly Inspector CARDIOVASCULAR DISEASE 05/15/16 documented as of this encounter
--- OUTSIDE RECORDS SUMMARY | 2024-11-12 05:30 | XMS_ITS | Encounter Summary ---
Author Organization [facility] Address [address] [facility]. [place], [place] [address] [place] [address] Care Team Providers Care Billing Rep Name Role Phone Dane Sullivan DO Primary Care Provider + [phone] Asa Mcnamara MD Unavailable [phone] Deisi Andrews MD Primary Care Provider [phone] Heber Adorno MD Primary Care Provider Unavailable Deisi Andrews MD Primary Care Provider [phone] Encounter Details Date Type Department Care Team (Late st Contact Info) Description 10/21/2016 Abstract [facility] Family Medicine - [address] [phone] Dane Sullivan DO [address] [phone] Social History Tobacco Use Types Packs/Day Years Used Date Smoking Tobacco: Every Day Cigarettes Smokeless Tobacco: Never Comments:3 cig a day Alcohol Use Standard Drinks/Week Comments No 0 (1 standard drink = 0.6 oz pur e alcohol) Comments Unknown Sex and Gender Information Value Date Recorded Sex Assigned at Female 12/06/2019 3:36 PM NONPROFIT DIRECTOR Legal Sex Female 5:20 PM CDT Gender Identity Female 12/06/2019 3:36 PM NONPROFIT DIRECTOR Sexual Orientation Straight 12/06/2019 3: 36 PM NONPROFIT DIRECTOR Occupation Industry Job Start Date Job End Date Not on file Not on file Not on file Not on file documented as of this encounter Last Filed Vital Signs Vital Sign Reading Time Taken Comments Blood Pressure 111/74 10/21/2016 11:36 AM NONPROFIT DIRECTOR Pulse 89 10/21/2016 11:36 AM NONPROFIT DIRECTOR Temperature - - Respiratory Rate - - Oxygen Saturation - - Inhaled Oxygen Concentration - - Weight 101.6 kg (224 lb) 10/21/2016 11:36 AM NONPROFIT DIRECTOR Height 157.5 cm (5' 2 ) 10/21/2016 11:36 AM NONPROFIT DIRECTOR Body Mass Index 40.97 10/21/2016 11:36 AM NONPROFIT DIRECTOR documented in this encounter Progress Notes [...] disease; ADAM = N; Verified Transmission to [facility]; Last Updated By: Thomas Golf; 06/09/2016 2:36:41 PM 2. Joleen 180 MG TABS; Therapy: (Recorded:[id number]) to Recorded Dispense: 0 Days ; #: Sufficient TABS; Refill: 0; ADAM = N; Record; Last Updated By: Jennifer Wayne; 07/14/2016 9:53:22 AM 3. Ambien 5 MG Oral Tablet; Therapy: (Recorded:[id number]) to Recorded Dispense: 0 Days ; #: Sufficient TABS; Refill: 0; ADAM = N; Record; Last Updated By: Jennifer Wayne; 10/21/2016 11:36:24 AM 4. AmLODIPine Besylate 5 MG Oral Tablet; TAKE ONE TABLET BY MOUTH ONCE DAILY DIRECTED; Therapy: 25Sep2015 to (Evaluate:25Sep2017) Requested for: 30Sep2016; Last Rx:30Sep2016 Ordered Rx By: Dane Sullivan; Dispense: 90 Days ; #:90 TAB; Refill: 3; For: Hypertension; ADAM = N; Verified Transmission to [facility]; Last Updated By: Thomas Golf; 09/30/2016 9:10:47 AM 5. Aspirin Low Dose TABS; Therapy: (Recorded:10Zpu7571) to Recorded Dispense: 0 Days ; #: Sufficient Tablet; Refill: 0; ADAM = N; Record; Last Updated By: Jennifer Wayne; 07/14/2016 9:53:22 AM 6. Cilostazol 100 MG Oral Tablet; Therapy: (Recorded:52Inb2880) to Recorded Dispense: 0 Days ; #: [...] pain; ADAM = N; Verified Transmission to [facility]; Last Updated By: Thomas Golf; 10/12/2016 10:33:42 AM 8. Depend Underwear Large/XL [...] TAKE 1 CAPSULE BY MOUTH DAILY; Therapy: (Recorded:01Vdn2192) to Requested for: 15Oct2016 Recorded Rx By: Dane Sullivan; Dispense: 0 Days ; #: Sufficient Capsule; Refill: 0; For: Anxiety; ADAM = N;Record; Last Updated By: Starr Melendez; 10/15/2016 3:16:22 PM 10. Isosorbide Mononitrate ER 30 MG Oral Tablet Extended Release 24 Hour; Therapy: (Recorded:90Ncz3010) to Recorded Dispense: 0 Days ; #: Sufficient TB24; Refill: 0; ADAM = N; Record; Last Updated By: Jennifer Wayne; 07/14/2016 9:53:22 AM 11. LORazepam 0.5 MG Oral Tablet; Therapy: 18Vep9847 to Recorded Dispense: 0 Days ; #: [...] Hypertension; ADAM = N; Verified Transmission to [facility]; Last Updated By: Marilee Walker; 04/01/2016 8:50:14 AM 13. MetFORMIN HCl - 500 MG Oral Tablet; TAKE ONE TABLET BY MOUTH TWICE DAILY WITH MEALS; Therapy: 10Mar2016 to (Evaluate:03Thn0141) Requested for: 01Apr2016; Last Rx:10Mar2016 Ordered Rx By: Dane Sullivan; Dispense: 30 Days ; #:180 TAB; Refill: 2; For: Health Maintenance; ADAM = N;Verified Transmission to [facility]; Last Updated By: Marilee Walker; 04/01/2016 8:50:14AM 14. Metoprolol Succinate ER 25 MG Oral Tablet Extended Release 24 Hour; Therapy: (Recorded:[id number]) to Recorded Dispense: 0 Days ; #: Sufficient TB24; Refill: 0; ADAM = N; Record; Last Updated By: Jennifer Wayne; 07/14/2016 9:53:22 AM 15. Montelukast Sodium 10 MG Oral Tablet; TAKE ONE TABLET BY MOUTH ONCE DAILY; Therapy: 22Sep2016 to (Evaluate:28Ham3936) Requested for: 22Sep2016; Last Rx:22Sep2016 Ordered Rx By: Dane Sullivan; Dispense: 90 Days ; #:90 TAB; Refill: 0; For: Chronic obstructive pulmonarydisease; ADAM = N; Verified Transmission to [facility]; Last Updated By: Ezra Baez; 09/22/2016 7:08:22 AM 16. Nebulizer/Tubing/Mouthpiece KIT; USE DIRECTED Q4-6H PRN; Therapy: 61Rhu1851 to (Last Rx:[id number]) Ordered Rx By: Dane Sullivan; Dispense: 0 Days ; #:1 Kit; Refill: 0; For: Chronic obstructive pulmonary disease; ADAM = N; Print Rx; Last Updated By: Starr Melendez; 10/15/2016 3:35:51 PM 17. Nitrostat 0.4 MG Sublingual Tablet Sublingual; Therapy: (Recorded:24Zao3690) to Recorded Dispense: 0 Days ; #: Sufficient SUBL; Refill: 0; ADAM = N; Record; Last Updated By: Jennifer Wayne; 07/14/2016 9:53:22 AM 18. Percocet 5-325 MG Oral Tablet; Therapy: (Recorded:64Dqg2994) to Recorded Dispense: 0 Days ; #: Sufficient TABS; Refill: 0; ADAM = N; Record; Last Updated By: Jennifer Wayne; 10/21/2016 11:36:24 AM 19. Pravastatin Sodium 40 MG Oral Tablet; TAKE ONE TABLET BY MOUTH ONCE DAILY; Therapy: 94Eme7846 to (Evaluate:40Obi0694) Requested for: 43Fou2306; Last Rx:12Feb2016 Ordered Rx By: Dane Sullivan; Dispense: 90 Days ; #:90 TAB; Refill: 2; For: Hyperlipidemia; ADAM = N; Verified Transmission to [facility]; Last Updated By: Marilee Walker; 04/01/2016 8:50:14 AM 20. PriLOSEC 20 MG Oral Capsule Delayed Release; Therapy: (Recorded:[id number]) to Recorded Dispense: 0 Days ; #: Sufficient CPDR; Refill: 0; ADAM = N; Record; Last Updated By: Marilee Walker; 04/01/2016 8:50:14 AM 21. Qvar 40 MCG/ACT Inhalation Aerosol Solution; INHALE ONE PUFF BY MOUTH TWICE DAILY; Therapy: 25Atx9011 to (Evaluate:23Sep2016) Requested for: 48Mxv7225; Last Rx:[id number] Ordered Rx By: Dane Sullivan; Dispense: 90 Days ; #:27 EA; Refill: 1; For: Chronic obstructive pulmonary disease; ADAM = N; Verified Transmission to [facility]; Last Updated By: Marilee Walker; 04/01/2016 8:50:14 AM 22. Underpads Miscellaneous; USE DIRECTED, Q4-6H; Therapy: 13Sig8088 to (Last Rx:[id number]) Ordered Rx By: Dane Sullivan; Dispense: 0 Days ; #:3 X 25 Miscellaneous Package (10 Packages); Refill: 5;For: Incontinence; ADAM = N; Print Rx; Last Updated By: Starr Melendez; 10/15/2016 3:35:51 PM 23. Ventolin HFA 108 (90 Base) MCG/ACT Inhalation Aerosol Solution; INHALE TWO PUFFS BY MOUTH EVERY 4 TO 6 HOURS NEEDED; Therapy: 21Xgr9327 to (Evaluate:71Upd6682) Requested for: 31Aug2016; Last Rx:31Aug2016 Ordered Rx By: Dane Sullivan; Dispense: 17 Days ; #:18 Unit; Refill: 2; For: Chronic obstructive pulmonary disease; ADAM = N; Verified Transmission to [facility]; Last Updated By: Ezra Baez; 08/31/2016 9:47:43 AM 24. Xanax 1 MG Oral Tablet; Therapy: (Recorded:28Mpt9049) to Recorded Dispense: 0 Days ; #: [...] Wayne; 04/22/2015 1:02:20 PM Immunizations 1 Influenza [id number] Vitals Recorded: 21Oct2016 11:36AM Heart Rate 89 [...] ); Status:Hold For - Manual Activation; Requested for:80Dat8172; Perform:[facility]; Due:20Nov2016;Ordered; For:Diabetes mellitus, type 2; Ordered By:Dane Sullivan; ?? Hemoglobin A1C ( HA1C ); Status:Hold For - Manual Activation; Requested for:93Kjg4692; Perform:[facility]; Due:20Nov2016;Ordered; For:Diabetes mellitus, type 2; Ordered By:Dane Sullivan; ?? Lipid Profile; Status:Hold For - Manual Activation; Requested for:[id number]; Perform:[facility]; Due:20Nov2016;Ordered; For:Diabetes mellitus, type 2; [...] and cervical cancer screening is managed by DOG RAISER, farshad goodwin in Jul 2016. Breast cancer screening: the risks and benefits of breast cancer screening were discussed and breast cancer screening is managed by DOG RAISER, RENATA pio in Jul 2016. Colorectal cancerscreening: the risks and benefits of colorectal cancer screening were discussed, colorectal cancer screening is current and colorectal cancer screening is managed by pio PAGE at age 51, was normal. Screening [...] Dane Sullivan D.O.; Oct 21 2016 11:54AM NONPROFIT DIRECTOR (Author) documented in this encounter Plan of Treatment Not on file documented as of this encounter Visit Diagnoses Not on filedocumented in this encounter Care Teams Billing Rep Relationship Specialty Start Date End Date Dane Sullivan DO PCP - General FAMILY PRACTICE 05/15/16 02/11/17 Deisi Andrews MD [address] [place] [address] PCP - General FAMILY PRACTICE 02/13/17 03/10/17 Heber Adorno MD PCP - General 03/11/17 06/14/17 Deisi Andrews MD [address] [place] [address] PCP - General FAMILY PRACTICE 06/15/17 10/14/19 Asa Mcnamara MD [facility] [address] [place] [address] [place] Worker CARDIOVASCULAR DISEASE 05/15/16 documented as of this encounter
--- OUTSIDE RECORDS SUMMARY | 2024-11-12 05:30 | XMS_ITS | Encounter Summary ---
Author Organization [facility] Address [address] [place] [address] [place] [address] Care Team Providers Care Glazing Department Supervisor Name Role Phone Dane Sullivan Primary Care Provider [phone] Asa Mcnamara MD Unavailable [phone] Encounter Details Date Type Department Care Team (Late st Contact Info) Description 06/04/2016 Orders Only [facility] AT [address] [address] Asa Mcnamara MD [address] [address] Social History Tobacco Use Types Packs/Day Years Used Date Smoking Tobacco: Every Day Cigarettes Smokeless Tobacco: Never Alcohol Use Standard Drinks/Week Comments No 0 (1 standard drink = 0.6 oz pur e alcohol) Comments Unknown Sex and Gender Information Value Date Recorded Sex Assigned at Female 12/06/2019 3:36 PM NUCLEAR CONTROL ROOM OPERATOR Legal Sex Female 5:20 PM CDT Gender Identity Female 12/06/2019 3:36 PM NUCLEAR CONTROL ROOM OPERATOR Sexual Orientation Straight 12/06/2019 3: 36 PM NUCLEAR CONTROL ROOM OPERATOR 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 Not on file Not on file documented as of this encounter Plan of Treatment Not on file documented as of this encounter Visit Diagnoses Diagnosis PVD (peripheral vascular disease) (CMS/HCC)- Primary Peripheral vascular disease, unspecified Claudication (CMS/HCC) Peripheral vascular disease, unspecified documented in this encounter Care Teams Glazing Department Supervisor Relationship Specialty Start Date End Date Dane Sullivan DO PCP - General FAMILY PRACTICE 05/15/16 02/11/17 Asa Mcnamara MD [facility] [address] [place] [address] [place] Line Mover CARDIOVASCULAR DISEASE 05/15/16 documented as of this encounter
--- OUTSIDE RECORDS SUMMARY | 2024-11-12 05:30 | XMS_ITS | Encounter Summary ---
Author Organization [facility] Address [facility]. [place], [place] [address] [place] [address] Care Team Providers Care Overhead Cleaner Name Role Phone Dane Sullivan DO Primary Care Provider + [phone] Asa Mcnamara MD Unavailable [phone] Deisi Andrews MD Primary Care Provider [phone] Heber Adorno MD Primary Care Provider Unavailable Deisi Andrews MD Primary Care Provider [phone] Encounter Details Date Type Department Care Team (Latest Contact Info) Description 10/29/2016 Abstract [facility] Social History Tobacco Use Types Packs/Day Years Used Date Smoking Tobacco: Every Day Cigarettes Smokeless Tobacco: Never Comments:3 cig a day Alcohol Use Standard Drinks/Week Comments No 0 (1 standard drink = 0.6 oz pur e alcohol) Comments Unknown Sex and Gender Information Value Date Recorded Sex Assigned at Female 12/06/2019 3:36 PM LABORATORY TESTER Legal Sex Female 5:20 PM CDT Gender Identity Female 12/06/2019 3:36 PM LABORATORY TESTER Sexual Orientation Straight 12/06/2019 3: 36 PM LABORATORY TESTER Occupation Industry Job Start Date Job End Date Not on file Not on file Not on file Not on file documented as of this encounter Plan of Treatment Not on file documented as of this encounter Visit Diagnoses Not on filedocumented in this encounter Care Teams Overhead Cleaner Relationship Specialty Start Date End Date Dane Sullivan DO PCP - General FAMILY PRACTICE 05/15/16 02/11/17 Deisi Andrews MD [address] [place] [address] PCP - General FAMILY PRACTICE 02/13/17 03/10/17 Heber Adorno MD PCP - General 03/11/17 06/14/17 Deisi Andrews MD [address] [place] [address] PCP - General FAMILY PRACTICE 06/15/17 10/14/19 Asa Mcnamara MD [facility] [address] [place] [address] Stephen Exam Proctor CARDIOVASCULAR DISEASE 05/15/16 documented as of this encounter
--- OUTSIDE RECORDS SUMMARY | 2024-11-12 05:30 | XMS_ITS | Encounter Summary ---
Author Organization [facility] Address [address] [facility] [place] [address] [place] [address] Care Team Providers Care Sugar House Supervisor Name Role Phone Dane Sullivan Primary Care Provider [phone] Asa Mcnamara MD Unavailable [phone] Reason for Visit * Reason Onset Date Comments Reschedule 08/12/2016 Encounter Details Date Type Department Care Team (Late st Contact Info) Description 08/12/2016 Telephone [facility] AT [address] [address] Asa Mcnamara MD [address] [address] Reschedule Social History Tobacco Use Types Packs/Day Years Used Date Smoking Tobacco: Every Day Cigarettes Smokeless Tobacco: Never Comments:3 cig a day Alcohol Use Standard Drinks/Week Comments No 0 (1 standard drink = 0.6 oz pur e alcohol) Comments Unknown Sex and Gender Information Value Date Recorded Sex Assigned at Female 12/06/2019 3:36 PM THAW SHED HEATER TENDER Legal Sex Female 5:20 PM CDT Gender Identity Female 12/06/2019 3:36 PM THAW SHED HEATER TENDER Sexual Orientation Straight 12/06/2019 3: 36 PM THAW SHED HEATER TENDER Occupation Industry Job Start Date Job [...] on filedocumented in this encounter Care Teams Sugar House Supervisor Relationship Specialty Start Date End Date Dane Sullivan DO PCP - General FAMILY PRACTICE 05/15/16 02/11/17 Asa Mcnamara MD [address] [address] [place] Hide Trimmer CARDIOVASCULAR DISEASE 05/15/16 documented as of this encounter
--- OUTSIDE RECORDS SUMMARY | 2024-11-12 05:30 | XMS_ITS | Encounter Summary ---
Author Organization [facility] Address [address] [facility]. [place], [place] [address] [place] [address] Care Team Providers Care Clear Coat Sprayer Name Role Phone Dane Sullivan Primary Care Provider [phone] Asa Mcnamara MD Unavailable [phone] Reason for Referral * Imaging (Routine) - Closed Specialty Diagnoses / Procedures Referred By Contac t Referred To Contact CARDIOLOGY Diagnoses PVD (peripheral vascular disease) (CMS/HCC) Pure hypercholesterolemia Essential (primary) hypertension Stenosis of left carotid artery Procedures USV ARTERIAL STRESS LOW EXT Asa Mcnamara MD [facility]. [address] [address] Phone: tel: fax: [facility] [address] Phone: tel: Referral ID Status Reason Start Date Expiration Date Visits Re quested Visits Authorized [id number] Closed 08/12/2016 03/14/2017 1 1 * Imaging (Routine) - Closed Specialty Diagnoses / Procedures Referred By Contac t Referred To Contact CARDIOLOGY Diagnoses PVD (peripheral vascular disease) (CMS/HCC) Pure hypercholesterolemia Essential (primary) hypertension Stenosis of left carotid artery Procedures US AORTA DUPLEX COMP Asa Mcnamara MD [address] [address] Phone: tel: fax: [address] [address] Phone: tel: Referral ID Status Reason Start Date Expiration Date Visits Re quested Visits Authorized [id number] Closed 08/12/2016 03/14/2017 1 1 * Procedure (Routine) - Closed Specialty Diagnoses / Procedures Referred By Nacho t Referred To Contact CARDIOLOGY Diagnoses Stenosis of left carotid artery Procedures USV CAROTID DUPLEX DILEEP Asa Mcnamara MD [address] [address] Phone: tel: fax: [address] [address] Phone: tel: Referral ID Status Reason Start Date Expiration Date Visits Re quested Visits Authorized [id number] Closed 08/12/2016 09/14/2016 1 1 Reason for Visit * Reason Comments Peripheral Vascular Disease follow up pr ocedure Hypertension Lipids Encounter Details Date Type Department Care Team (Late st Contact Info) Description 08/12/2016 1:15 PM CDT Office Visit [facility] AT [address] [address] Asa Mcnamara MD [address] [id number] Peripheral Vascular Disease (follow up procedure); Hypertension; Lipids Social History Tobacco Use Types Packs/Day Years Used Date Smoking Tobacco: Every Day Cigarettes Smokeless Tobacco: Never Comments:3 cig a day Alcohol Use Standard Drinks/Week Comments No 0 (1 standard drink = 0.6 oz pur e alcohol) Comments Unknown Sex and Gender Information Value Date Recorded Sex Assigned at Female 12/06/2019 3:36 PM INSTRUCTOR PHYSICAL Legal Sex Female 5:20 PM CDT Gender Identity Female 12/06/2019 3:36 PM INSTRUCTOR PHYSICAL Sexual Orientation Straight 12/06/2019 3: 36 PM INSTRUCTOR PHYSICAL Occupation Industry Job Start Date Job End [...] Haloperidol Seizure ??? Penicillins Redness ??? Resperal-Dm [Mza-Zf-Jgg-Propyl Qfhdwl-Czi-Myvzvapli] Seizure ??? Triazolam Seizure Past Medical History [...] infarction documented in this encounter Care Teams Clear Coat Sprayer Relationship Specialty Start Date End Date Dane Sullivan DO PCP - General FAMILY PRACTICE 05/15/16 02/11/17 Asa Mcnamara MD [facility]. [facility] [address] [place] [address] [place] Log Rafter CARDIOVASCULAR DISEASE 05/15/16 documented as of this encounter
--- OUTSIDE RECORDS SUMMARY | 2024-11-12 05:30 | XMS_ITS | Encounter Summary ---
Author Organization [facility] Address [facility] [facility] [place] [address] [place] [address] Care Team Providers Care Revenue Agent Name Role Phone Nate Danejuan pablo Monsalve DO Primary Care Provider [phone] Asa Mcnamara MD Unavailable [phone] Reason for Visit * Reason Onset Date Comments Question 07/14/2016 Encounter Details Date Type Department Care Team (Late st Contact Info) Description 07/14/2016 Telephone [facility] [employer] [facility] AT [address] [address] Karen Barboza, RN Question Social History Tobacco Use Types Packs/Day Years Used Date Smoking Tobacco: Every Day Cigarettes Smokeless Tobacco: Never Alcohol Use Standard Drinks/Week Comments No 0 (1 standard drink = 0.6 oz pur e alcohol) Comments Unknown Sex and Gender Information Value Date Recorded Sex Assigned at Female 12/06/2019 3:36 PM BOX TURNER Legal Sex Female 5:20 PM CDT Gender Identity Female 12/06/2019 3:36 PM BOX TURNER Sexual Orientation Straight 12/06/2019 3: 36 PM BOX TURNER 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 Mcnamara, notified both pt and [facility] that Dr. Mcnamara would NOT recommend holding [...] on filedocumented in this encounter Care Teams Revenue Agent Relationship Specialty Start Date End Date Dane Sullivan DO PCP - General FAMILY PRACTICE 05/15/16 02/11/17 Asa Mcnamara MD [facility]. [facility] [address] [place] [address] [place] [employer] Senator CARDIOVASCULAR DISEASE 05/15/16 documented as of this encounter
--- OUTSIDE RECORDS SUMMARY | 2024-11-12 05:30 | XMS_ITS | Encounter Summary ---
Author Organization [facility] Address [address] [facility]. [place], [place] [address] [place] [address] Care Team Providers Care Gps Field Data Collector Name Role Phone Dane Sullivan DO Primary Care Provider + [phone] Asa Mcnamraa MD Unavailable [phone] Deisi Andrews MD Primary Care Provider [phone] Heber Adorno MD Primary Care Provider Unavailable Deisi Andrews MD Primary Care Provider [phone] Encounter Details Date Type Department Care Team (Latest Contact Info) Description 09/02/2016 Abstract [facility] Medical Group Dane Sullivan DO [address] [address] Social History Tobacco Use Types Packs/Day Years Used Date Smoking Tobacco: Every Day Cigarettes Smokeless Tobacco: Never Comments:3 cig a day Alcohol Use Standard Drinks/Week Comments No 0 (1 standard drink = 0.6 oz pur e alcohol) Comments Unknown Sex and Gender Information Value Date Recorded Sex Assigned at Female 12/06/2019 3:36 PM ADVERTISING CONSULTANT Legal Sex Female 5:20 PM CDT Gender Identity Female 12/06/2019 3:36 PM ADVERTISING CONSULTANT Sexual Orientation Straight 12/06/2019 3: 36 PM ADVERTISING CONSULTANT Occupation Industry Job Start Date Job [...] on filedocumented in this encounter Care Teams Gps Field Data Collector Relationship Specialty Start Date End Date Dane Sullivan DO PCP - General FAMILY PRACTICE 05/15/16 02/11/17 Deisi Andrews MD [address] [place] [address] PCP - General FAMILY PRACTICE 02/13/17 03/10/17 , Heber Trinidad MD PCP - General 03/11/17 06/14/17 Deisi Andrews MD [address] [place] [address] PCP - General FAMILY PRACTICE 06/15/17 10/14/19 Asa Mcnamara MD [facility] [address] [place] [address] Stephen Engine Hostler CARDIOVASCULAR DISEASE 05/15/16 documented as of this encounter
--- OUTSIDE RECORDS SUMMARY | 2024-11-12 05:30 | XMS_ITS | Encounter Summary ---
Author Organization [facility] Address [address] [facility] [address] [place] [address] Care Team Providers Care Shop Mechanic Name Role Phone Dane Sullivan Primary Care Provider [phone] Asa Mcnamara MD Unavailable [phone] Encounter Details Date Type Department Care Team (Late st Contact Info) Description 05/20/2016 Orders Only [facility] AT [address] [address] Asa Mcnamara MD [address] [address] Social History Tobacco Use Types Packs/Day Years Used Date Smoking Tobacco: Every Day Cigarettes Smokeless Tobacco: Never Alcohol Use Standard Drinks/Week Comments No 0 (1 standard drink = 0.6 oz pur e alcohol) Comments Unknown Sex and Gender Information Value Date Recorded Sex Assigned at Female 12/06/2019 3:36 PM TRANSIT POLICE OFFICER Legal Sex Female 5:20 PM CDT Gender Identity Female 12/06/2019 3:36 PM TRANSIT POLICE OFFICER Sexual Orientation Straight 12/06/2019 3: 36 PM TRANSIT POLICE OFFICER Occupation Industry Job Start Date Job [...] unspecified documented in this encounter Care Teams Shop Mechanic Relationship Specialty Start Date End Date Dane Sullivan DO PCP - General FAMILY PRACTICE 05/15/16 02/11/17 Asa Mcnamara MD [facility]. [facility] [address] [place] [address] [place] Clearance Representative CARDIOVASCULAR DISEASE 05/15/16 documented as of this encounter
--- OUTSIDE RECORDS SUMMARY | 2024-11-12 05:30 | XMS_ITS | Encounter Summary ---
Author Organization [facility] Address [facility]. [place], [place] [address] [place] [address] Care Team Providers Care Erp Project Manager Name Role Phone Dane Sullivan Primary Care Provider [phone] Asa Mncamara MD Unavailable [phone] Deisi Andrews MD Primary Care Provider [phone] Heber Huynh MD Primary Care Provider Unavailable Deisi Andrews MD Primary Care Provider [phone] Encounter Details Date Type Department Care Team (Late st Contact Info) Description 07/01/2016 Abstract [facility] [place], [place] [id number] Asa Mcnamara MD Three [facility]. [facility] [address] [place], [place] [id number] Social History Tobacco Use Types Packs/Day Years Used Date Smoking Tobacco: Every Day Cigarettes Smokeless Tobacco: Never Alcohol Use Standard Drinks/Week Comments No 0 (1 standard drink = 0.6 oz pur e alcohol) Comments Unknown Sex and Gender Information Value Date Recorded Sex Assigned at Female 12/06/2019 3:36 PM DIRECTOR OF RESPIRATORY THERAPY Legal Sex Female 5:20 PM CDT Gender Identity Female 12/06/2019 3:36 PM DIRECTOR OF RESPIRATORY THERAPY Sexual Orientation Straight 12/06/2019 3: 36 PM DIRECTOR OF RESPIRATORY THERAPY Occupation Industry Job Start Date Job End [...] GONADOTROPINHCG QL (07/01/2016 7:06 AM CDT) Pathologist [facility] PREG SCREEN-SERUM NEGATIVE 07/01/2016 7:54 AM CDT [facility] 07/01/2016 7:06 AM CDT 07/01/2016 7:12 AM CDT us Generic Conversion Md [facility] Final R esult [facility] [address] [place] [address], [place] [phone] * PROTIME/INR, VENOUS (07/01/2016 7:06 AM CDT) Pathologist [facility] PROTIME 11.1 9.6 - 12.2 SEC 07/01/2016 7:44 AM CDT [facility] INR 1.00 07/01/2016 7:44 AM CDT [facility] Comment: Recommended INR Therapeutic Goals: ??2.0-3.0 Routine Therapy ??2.5-3.5 Mechanical Prosthetic Valves (High Risk) ??3.0-4.0 Acute SD (to prevent Systemic Embolism) The INR is used only for patients on stable oral anticoagulant therapy. It makes no significant contribution to the diagnosis or treatment of patients whose Protime is prolonged for other reasons. 07/01/2016 7:06 AM CDT 07/01/2016 7:12 AM CDT us Generic Conversion Md [facility] Final R esult [facility] [address] [place] [address], * (ABNORMAL) CBC W/DIFF AUTOMATED (07/01/2016 7:06 AM CDT) WBC 17.0(H) 4.8 - 10.8 X10'3/uL 07/01/2016 7:29 AM CDT [facility] RBC 4.86 4.20 - 5.40 X10'6/uL 07/01/2016 7:29 AM CDT [facility] HGB 13.6 12.0 - 16.0 g/dL 07/01/2016 7:29 AM CDT [facility] HCT 40.4 38.0 - 48.0 % 07/01/2016 7:29 AM CDT [facility] MCV 83.1 81.0 - 99.0 fL 07/01/2016 7:29 AM CDT [facility] MCH 28.0 27.0 - 31.0 pg 07/01/2016 7:29 AM CDT [facility] MCHC 33.7 32.0 - 36.0 g/dL 07/01/2016 7:29 AM CDT [facility] RDW 13.3 11.5 - 14.5 % 07/01/2016 7:29 AM CDT [facility] PLT 275 130 - 400 X10'3/uL 07/01/2016 7:29 AM CDT [facility] MPV 10.0 9.3 - 12.2 fL 07/01/2016 7:29 AM CDT [facility] DIFFERENTIAL TYPE AUTOMATED 07/01/2016 7:29 AM CDT [facility] NEUTROPHILS % 77.8(H) 43.0 - 65.0 % 07/01/2016 7:29 AM CDT [facility] LYMPHOCYTES % 13.9(L) 20.0 - 46.0 % 07/01/2016 7:29 AM CDT [facility] MONOCYTES % 6.3 5.0 - 12.0 % 07/01/2016 7:29 AM CDT [facility] EOSINOPHILS 0.9(L) 1.0 - 3.0 % 07/01/2016 7:29 AM CDT [facility] BASOPHILS 0.4 0.0 - 1.0 % 07/01/2016 7:29 AM CDT [facility] IMMATURE GRANS % 0.7 0.0 - 1.0 % 07/01/2016 7:29 AM CDT [facility] 07/01/2016 7:06 AM CDT 07/01/2016 7:12 AM CDT us Generic Conversion Md [facility] Final R esult [facility] [address] [place] [address], * (ABNORMAL) BASIC METABOLIC PANEL (07/01/2016 7:06 AM CDT) GLUCOSE 161(H) 70 - 99 mg/dL 07/01/2016 7:45 AM CDT [facility] BUN 25(H) 8 - 23 mg/dL 07/01/2016 7:45 AM CDT [facility] CREATININE S/P/B 0.74 0.60 - 1.10 mg/dL 07/01/2016 7:45 AM CDT [facility] SODIUM S/P/B 135(L) 136 - 145 mmol/L 07/01/2016 7:45 AM CDT [facility] POTASSIUM S/P/B 4.4 3.5 - 5.1 mmol/L 07/01/2016 7:45 AM CDT [facility] CHLORIDE S/P/B 100 98 - 107 mmol/L 07/01/2016 7:45 AM CDT [facility] CO2 22 22 - 29 mmol/L 07/01/2016 7:45 AM CDT [facility] CALCIUM S/P/B 9.0 8.6 - 10.2 mg/dL 07/01/2016 7:45 AM CDT [facility] ANION GAP 17 8 - 20 07/01/2016 7:45 AM CDT [facility] EGFR NON-AFR. AMER. >60 >60 mL/min/1.7 [facility] 07/01/2016 7:45 AM CDT [facility] EGFR AFR. AMER. >60 >60 mL/min/1.7 [facility] 07/01/2016 7:45 AM CDT [facility] Comment: NOTE: eGFR is not calculated for patients <18 years of age. This is an estimated GFR (CKD EPI) and should not be used for calculating drug doses. 07/01/2016 7:06 AM CDT 07/01/2016 7:12 AM CDT us Generic Conversion Md [facility] Final R esult [facility] [address] [place] [address], documented in this encounter Visit Diagnoses Diagnosis Atherosclerosis of other arteries documented in this encounter Care Teams Erp Project Manager Relationship Specialty Start Date End Date Dane Sullivan DO PCP - General FAMILY PRACTICE 05/15/16 02/11/17 Deisi Andrews MD [address] [place] [address] PCP - General FAMILY PRACTICE 02/13/17 03/10/17 Heber Huynh MD PCP - General 03/11/17 06/14/17 Deisi Andrews MD [address] [place] [address] PCP - General FAMILY PRACTICE 06/15/17 10/14/19 Asa Mcnamara MD [facility] [address] [place] [address] [place] Mid Level Provider CARDIOVASCULAR DISEASE 05/15/16 documented as of this encounter
--- OUTSIDE RECORDS SUMMARY | 2024-11-12 05:30 | XMS_ITS | Encounter Summary ---
Author Organization [facility] Address [facility] [place] [address] [place] [address] Care Team Providers Care Cryptographic Clerk Name Role Phone Dane Sullivan DO Primary Care Provider + [phone] Asa Mcnamara MD Unavailable [phone] Dane uSllivan DO Primary Care Provider [phone] Encounter Details Date Type Department Care Team (Late st Contact Info) Description 05/13/2016 Orders Only [facility] AT [address] [address] Rohit Vargas, PLASTER MOLDER Social History Tobacco Use Types Packs/Day Years Used Date Smoking Tobacco: Never Assessed Comments Unknown Sex and Gender Information Value Date Recorded Sex Assigned at Female 12/06/2019 3:36 PM ENTERPRISE INTEGRATION ARCHITECT Legal Sex Female 5:20 PM CDT Gender Identity Female 12/06/2019 3:36 PM ENTERPRISE INTEGRATION ARCHITECT Sexual Orientation Straight 12/06/2019 3: 36 PM ENTERPRISE INTEGRATION ARCHITECT documented as of this encounter Plan of Treatment Not on file documented as of this encounter Visit Diagnoses Not on filedocumented in this encounter Care Teams Cryptographic Clerk Relationship Specialty Start Date End Date Dane Sullivan DO PCP - General FAMILY PRACTICE 05/15/16 02/11/17 Dane Sullivan DO PCP - General 05/04/16 05/14/16 Asa Mcnamara MD [facility]. [facility] [address] [place] [address] [place] Manager Fashion CARDIOVASCULAR DISEASE 05/15/16 documented as of this encounter
--- OUTSIDE RECORDS SUMMARY | 2024-11-12 05:31 | XMS_ITS | Encounter Summary ---
Author Organization [facility] Address [address] [facility]. [place], [place] [address] [place] [address] Care Team Providers Care Hat Brim Curler Name Role Phone Dane Sullivan DO Primary Care Provider + [phone] Asa Mcnamara MD Unavailable +[phone] Deisi Andrews MD Primary Care Provider +[phone] Heber Adorno MD Primary Care Provider Unavailable Dane Sullivan DO Primary Care Provider + [phone] Dane Sullivan DO Primary Care Provider + [phone] Dane Sullivan DO Primary Care Provider + [phone] Deisi Andrews MD Primary Care Provider +[phone] Encounter Details Date Type Department Care Team (Late st Contact Info) Description 04/07/2016 Abstract [facility] [place] [address] [place] [address] Carlin Jaquez, DPDilcia [address] [place] [address] Social History Tobacco Use Types Packs/Day Years Used Date Smoking Tobacco: Never Assessed Comments Unknown Sex and Gender Information Value Date Recorded Sex Assigned at Female 12/06/2019 3:36 PM WATER MANGLE TENDER Legal Sex Female 5:20 PM CDT Gender Identity Female 12/06/2019 3:36 PM WATER MANGLE TENDER Sexual Orientation Straight 12/06/2019 3: 36 PM WATER MANGLE TENDER documented as of this encounter Last Filed [...] Smoking (305.1) (F17.200) Immunizations Influenza --- Series1: [id number] Current Meds 1. AmLODIPine Besylate 5 MG Oral Tablet; TAKE 1 TABLET DAILY DIRECTED; Therapy: 25Sep2015 to (Evaluate:22Sep2016) Requested for: 01Apr2016; Last Rx:26Mar2016 Ordered 2. Aspirin 325 MG Oral Tablet; Therapy: (Recorded:[id number]) to Recorded 3. Cyclobenzaprine HCl - 10 MG Oral Tablet; TAKE 1 TABLET QD-BID PRN; Therapy: 27Nov2015 to (Last Rx:27Nov2015) Requested for: 01Apr2016 Ordered 4. Losartan Potassium 100 MG Oral Tablet; TAKE ONE TABLET BY MOUTH ONCE DAILY; Therapy: 10Mar2016 to (Evaluate:05Dec2016) Requested for: 30Vhi0466; Last Rx:10Mar2016 Ordered 5. MetFORMIN HCl - 500 MG Oral Tablet; TAKE ONE TABLET BY MOUTH TWICE DAILY WITH MEALS; Therapy: 10Mar2016 to (Evaluate:[id number]) Requested for: 01Apr2016; Last Rx:10Mar2016 Ordered 6. Montelukast Sodium 10 MG Oral Tablet (Singulair); TAKE 1 TABLET DAILY Requested for: 01Apr2016; Last Rx:[id number] Ordered 7. Pravastatin Sodium 40 MG Oral Tablet; TAKE ONE TABLET BY MOUTH ONCE DAILY; Therapy: 07Equ9614 to (Evaluate:[id number]) Requested for: 01Apr2016; Last Rx:12Feb2016 Ordered 8. [...] EVERY 4 TO 6 HOURS NEEDED; Therapy: 07Ttb4505 to (Evaluate:22Feb2016) Requested for: 01Apr2016; Last Rx:[id number] Ordered 12. Xanax 1 MG Oral Tablet [...] Carlin Jaquez DPM; Apr 15 2016 12:40PM WATER MANGLE TENDER (Author) documented in this encounter Plan of Treatment Not on file documented as of this encounter Visit Diagnoses Not on filedocumented in this encounter Care Teams Hat Brim Curler Relationship Specialty Start Date End Date Dane Sullivan DO PCP - General FAMILY PRACTICE 05/15/16 02/11/17 Deisi Andrews MD [address] [place] [address] PCP - General FAMILY PRACTICE 02/13/17 03/10/17 Heber Adorno MD PCP - General 03/11/17 06/14/17 Dane Sullivan DO PCP - General 05/04/16 05/14/16 Dane Sullivan DO PCP - General 04/17/16 05/03/16 Dane Sullivan DO PCP - General 03/26/16 04/16/16 Deisi Andrews MD [address] [place] [address] PCP - General FAMILY PRACTICE 06/15/17 10/14/19 Asa Mcnamara MD [address] [facility]. [facility] [address] [place] [address] [place] Counterintelligence/Humint Specialist CARDIOVASCULAR DISEASE 05/15/16 documented as of this encounter
--- OUTSIDE RECORDS SUMMARY | 2024-11-12 05:31 | XMS_ITS | Encounter Summary ---
Author Organization [facility] Address [address] [facility]. [place], [place] [address] [place] [address] Care Team Providers Care Port Engineer Name Role Phone Dane Sullivan DO Primary Care Provider + [phone] Asa Mcnamara MD Unavailable +[phone] Deisi Andrews MD Primary Care Provider +[phone] Heber Adorno MD Primary Care Provider Unavailable Dane Sullivan DO Primary Care Provider + [phone] Dane Sullivan DO Primary Care Provider + [phone] Dane Sullivan DO Primary Care Provider + [phone] Deisi Andrews MD Primary Care Provider [phone] Encounter Details Date Type Department Care Team (Latest Contact Info) Description 03/27/2016 [facility] Dane Sullivan DO [address] [address] Social History Tobacco Use Types Packs/Day Years Used Date Smoking Tobacco: Never Assessed Comments Unknown Sex and Gender Information Value Date Recorded Sex Assigned at Female 12/06/2019 3:36 PM TANK DRIVER Legal Sex Female 5:20 PM CDT Gender Identity Female 12/06/2019 3:36 PM TANK DRIVER Sexual Orientation Straight 12/06/2019 3: 36 PM TANK DRIVER documented as of this encounter Progress Notes * Dane Sullivan, DO - 03/27/2016 11:03 AM CDT Verified Results *Urine dip auto In Office 26Mar2016 11:29AM Dane Sullivan Test Name Result Flag Reference Color Yellow Clarity Clear Glucose Negative Bilirubin Negative Ketones Negative Specific [place] 1.030 Blood Negative pH 5.5 5.0 - [...] filedocumented in this encounter Care Teams Port Engineer Relationship Specialty Start Date End Date Dane Sullivan DO PCP - General FAMILY PRACTICE 05/15/16 02/11/17 Deisi Andrews MD [address] [place] [address] PCP - General FAMILY PRACTICE 02/13/17 03/10/17 Heber Adorno MD PCP - General 03/11/17 06/14/17 Dane Sullivan DO PCP - General 05/04/16 05/14/16 Dane Sullivan DO PCP - General 04/17/16 05/03/16 Dane Sullivan DO PCP - General 03/26/16 04/16/16 Deisi Andrews MD [address] [place] [address] PCP - General FAMILY PRACTICE 06/15/17 10/14/19 Asa Mcnamara MD [facility]. [facility] [address] [place] [address] [place] Yarn Examiner Skeins CARDIOVASCULAR DISEASE 05/15/16 documented as of this encounter
--- OUTSIDE RECORDS SUMMARY | 2024-11-12 05:31 | XMS_ITS | Encounter Summary ---
Author Organization [facility] Address [address] [facility]. [place], [place] [address] [place] [address] Care Team Providers Care Supply Room Clerk Name Role Phone Dane Sullivan DO Primary Care Provider + [phone] Asa Mcnamara MD Unavailable +[phone] SullivanDane L DO Primary Care Provider + [phone] SullivanFarnazDane L DO Primary Care Provider + [phone] SullivanFarnazDane L DO Primary Care Provider + [phone] Sullivan Dane L DO Primary Care Provider + [phone] Sullivan Dane L DO Primary Care Provider + [phone] Heber Adorno MD Primary Care Provider Unavailable Encounter Details Date Type Department Care Team (Late st Contact Info) Description 04/08/2015 [facility] [address] [place] [address] Md Generic MD Vivi Social History Tobacco Use Types Packs/Day Years Used Date Smoking Tobacco: Never Assessed Comments Unknown Sex and Gender Information Value Date Recorded Sex Assigned at Female 12/06/2019 3:36 PM VASCULAR ULTRASOUND TECHNICIAN Legal Sex Female 5:20 PM CDT Gender Identity Female 12/06/2019 3:36 PM VASCULAR ULTRASOUND TECHNICIAN Sexual Orientation Straight 12/06/2019 3: 36 PM VASCULAR ULTRASOUND TECHNICIAN documented as of this encounter Plan [...] - General 06/27/15 09/23/15 Asa Mc[facility] [address] [place] [address] [place] Cra CARDIOVASCULAR DISEASE 05/15/16 documented as of this encounter
--- OUTSIDE RECORDS SUMMARY | 2024-11-12 05:31 | XMS_ITS | Encounter Summary ---
Author Organization [facility] Address [address] [facility]. [place], [place] [address] [place] [address] Care Team Providers Care Private Duty Lpn Name Role Phone Dane Sullivan DO Primary Care Provider + [phone] Asa Mcnamara MD Unavailable +[phone] Deisi Andrews MD Primary Care Provider [phone] Heber Adorno MD Primary Care Provider Unavailable Dane Sullivan DO Primary Care Provider + [phone] Dane Sullivan DO Primary Care Provider + [phone] Dane Sullivan DO Primary Care Provider + [phone] Dane Sullivan DO Primary Care Provider + [phone] Dane Sullivan DO Primary Care Provider + [phone] Heber Adorno MD Primary Care Provider Unavailable Deisi Andrews MD Primary Care Provider +[phone] Encounter Details Date Type Department Care Team (Late st Contact Info) Description 07/18/2010 Abstract [facility] [place] [address] Heber Adorno MD Social History Tobacco Use Types Packs/Day Years Used Date Smoking Tobacco: Never Assessed Comments Unknown Sex and Gender Information Value Date Recorded Sex Assigned at Female 12/06/2019 3:36 PM CHARGER TESTER Legal Sex Female 5:20 PM CDT Gender Identity Female 12/06/2019 3:36 PM CHARGER TESTER Sexual Orientation Straight 12/06/2019 3: 36 PM CHARGER TESTER documented as of this encounter Plan of Treatment Not on file documented as of this encounter Visit Diagnoses Not on filedocumented in this encounter Care Teams Private Duty Lpn Relationship Specialty Start Date End Date Dane Sullivan DO PCP - General FAMILY PRACTICE 05/15/16 02/11/17 Deisi Andrews MD [address] [place] [address] PCP - General FAMILY PRACTICE 02/13/17 03/10/17 [...] General 06/27/15 09/23/15 Deisi Andrews MD [address] [place] [address] PCP - General FAMILY PRACTICE 06/15/17 10/14/19 Asa Mcnamara MD [facility] [address] [place] [address] [place] Pipe Maker CARDIOVASCULAR DISEASE 05/15/16 documented as of this encounter
--- OUTSIDE RECORDS SUMMARY | 2024-11-12 05:31 | XMS_ITS | Encounter Summary ---
Author Organization [facility] Address [address] [facility] [place], [place] [address] [place] [address] Care Team Providers Care Technical Information Specialist Name Role Phone Dane Sullivan DO Primary Care Provider + [phone] Asa Mcnamara MD Unavailable +[phone] Deisi Andrews MD Primary Care Provider [phone] Md Generic Vivi HUYNH Primary Care Provider Unavailable Dane Sullivan DO Primary Care Provider + [phone] Dane Sullivan DO Primary Care Provider + [phone] Dane Sullivan DO Primary Care Provider + [phone] Dane Sullivan DO Primary Care Provider + [phone] Dane Sullivan DO Primary Care Provider + [phone] Md Generic Vivi HUYNH Primary Care Provider Unavailable Deisi Andrews MD Primary Care Provider [phone] Encounter Details Date Type Department Care Team (Latest Contact Info) Description 06/24/2015 Abstract [facility] Social History Tobacco Use Types Packs/Day Years Used Date Smoking Tobacco: Never Assessed Comments Unknown Sex and Gender Information Value Date Recorded Sex Assigned at Female 12/06/2019 3:36 PM MEDICAL FRONT DESK SPECIALIST Legal Sex Female 5:20 PM CDT Gender Identity Female 12/06/2019 3:36 PM MEDICAL FRONT DESK SPECIALIST Sexual Orientation Straight 12/06/2019 3: 36 PM MEDICAL FRONT DESK SPECIALIST documented as of this encounter Plan of Treatment Not on file documented as of this encounter Visit Diagnoses Not on filedocumented in this encounter Care Teams Technical Information Specialist Relationship Specialty Start Date End Date Dane Sullivan DO PCP - General FAMILY PRACTICE 05/15/16 02/11/17 Deisi Andrews MD [address] [place] [address] PCP - General FAMILY PRACTICE 02/13/17 03/10/17 [...] General 06/27/15 09/23/15 Deisi Andrews MD [address] [place] [address] PCP - General FAMILY PRACTICE 06/15/17 10/14/19 Asa Mcnamara MD Three [facility]. [facility] [address] [place] [address] [place] Production Line Manager CARDIOVASCULAR DISEASE 05/15/16 documented as of this encounter
--- OUTSIDE RECORDS SUMMARY | 2024-11-12 05:31 | XMS_ITS | Encounter Summary ---
Author Organization [facility] Address [address] [facility]. [place], [place] [address] [place] [address] Care Team Providers Care Window Shade Installer Name Role Phone Dane Sullivan DO Primary Care Provider + [phone] Asa Mcnamara MD Unavailable [phone] SullivanDane L DO Primary Care Provider + [phone] SullivanFarnazDane L DO Primary Care Provider + [phone] SullivanFarnazDane L DO Primary Care Provider + [phone] Sullivan Dane L DO Primary Care Provider + [phone] Sullivan Dane L DO Primary Care Provider + [phone] Heber Adorno MD Primary Care Provider Unavailable Encounter Details Date Type Department Care Team (Late st Contact Info) Description 11/13/2014 Abstract [facility] [address] [place] [address] Md Generic MD Vivi Social History Tobacco Use Types Packs/Day Years Used Date Smoking Tobacco: Never Assessed Comments Unknown Sex and Gender Information Value Date Recorded Sex Assigned at Female 12/06/2019 3:36 PM POLISHING 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 Legal Sex Female 5:20 PM CDT Gender Identity Female 12/06/2019 3:36 PM POLISHING 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 Sexual Orientation Straight 12/06/2019 3: 36 PM POLISHING 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 documented as of this encounter Plan of Treatment Not on file documented as of this encounter Visit Diagnoses Not on filedocumented in this encounter Care Teams Window Shade Installer Relationship Specialty Start Date End Date [...] - General 06/27/15 09/23/15 Asa Mcnamara MD [facility]. [facility] [address] [place] [address] [place] Coal Conveyor Operator CARDIOVASCULAR DISEASE 05/15/16 documented as of this encounter
--- OUTSIDE RECORDS SUMMARY | 2024-11-12 05:31 | XMS_ITS | Encounter Summary ---
Author Organization [facility] Address [address] [facility]. [place], [place] [address] [place] [address] Care Team Providers Care Marshmallow Runner Name Role Phone Dane Sullivan DO Primary Care Provider + [phone] Asa Mcnamara MD Unavailable +[phone] Deisi Andrews MD Primary Care Provider [phone] Heber Adorno MD Primary Care Provider Unavailable Dane Sullivan DO Primary Care Provider + [phone] Dane Sullivan DO Primary Care Provider + [phone] Dane Sullivan DO Primary Care Provider + [phone] Dane Sullivan DO Primary Care Provider + [phone] Dane Sullivan DO Primary Care Provider + [phone] Heber Adorno MD Primary Care Provider Unavailable Deisi Andrews MD Primary Care Provider [phone] Encounter Details Date Type Department Care Team (Late st Contact Info) Description 02/18/2010 Abstract [facility] [place] [place] [address] Heber Adorno MD Social History Tobacco Use Types Packs/Day Years Used Date Smoking Tobacco: Never Assessed Comments Unknown Sex and Gender Information Value Date Recorded Sex Assigned at Female 12/06/2019 3:36 PM MATERIALS MANAGEMENT MANAGER Legal Sex Female 5:20 PM CDT Gender Identity Female 12/06/2019 3:36 PM MATERIALS MANAGEMENT MANAGER Sexual Orientation Straight 12/06/2019 3: 36 PM MATERIALS MANAGEMENT MANAGER documented as of this encounter Plan of Treatment Not on file documented as of this encounter Visit Diagnoses Not on filedocumented in this encounter Care Teams Marshmallow Runner Relationship Specialty Start Date End Date Dane Sullivan DO PCP - General FAMILY PRACTICE 05/15/16 02/11/17 Deisi Andrews MD [address] [place] [address] PCP - General FAMILY PRACTICE 02/13/17 03/10/17 [...] General 06/27/15 09/23/15 Deisi Andrews MD [address] [place] [address] PCP - General FAMILY PRACTICE 06/15/17 10/14/19 Asa Mcnamara MD [facility] [address] [place] [address] [place] Mortgage Broker CARDIOVASCULAR DISEASE 05/15/16 documented as of this encounter
--- OUTSIDE RECORDS SUMMARY | 2024-11-12 05:31 | XMS_ITS | Encounter Summary ---
Author Organization [facility] Address [address] [facility]. [place], [place] [address] [place] [address] Care Team Providers Care Wool Fleece Sorter Name Role Phone Dane Sullivan DO Primary Care Provider + [phone] Asa Mcnamara MD Unavailable +[phone] Deisi Andrews MD Primary Care Provider [phone] Heber Adorno MD Primary Care Provider Unavailable Dane Sullivan DO Primary Care Provider + [phone] Dane Sullivan DO Primary Care Provider + [phone] Dane Sullivan DO Primary Care Provider + [phone] Dane Sullivan DO Primary Care Provider + [phone] Dane Sullivan DO Primary Care Provider + [phone] Heber Adorno MD Primary Care Provider Unavailable Deisi Andrews MD Primary Care Provider [phone] Neva Holden MD Primary Care Provider +[phone] Deisi Andrews MD Primary Care Provider +[phone] Neva Holden MD Primary Care Provider +[phone] Encounter Details Date Type Department Care Team (Late st Contact Info) Description 10/11/2007 Abstract [facility] Diagnostic Imaging [address] [facility] [place] [address] Heber Adorno MD Social History Tobacco Use Types Packs/Day Years Used Date Smoking Tobacco: Never Assessed Comments Unknown Sex and Gender Information Value Date Recorded Sex Assigned at Female 12/06/2019 3:36 PM MASTER OCEAN YACHT Legal Sex Female 5:20 PM CDT Gender Identity Female 12/06/2019 3:36 PM MASTER OCEAN YACHT Sexual Orientation Straight 12/06/2019 3: 36 PM MASTER OCEAN YACHT COVID-19 Exposure Response Date Recorded In the last month, have you been in contact with someone who was confirmed or suspected to have Coronavirus / COVID-19? Unable to assess 06/14/2020 2:13 PM CDT documented as of this encounter Plan of Treatment Not on file documented as of this encounter Visit Diagnoses Not on filedocumented in this encounter Care Teams Wool Fleece Sorter Relationship Specialty Start Date End Date Dane Sullivan DO PCP - General FAMILY PRACTICE 05/15/16 02/11/17 Deisi Andrews MD [address] [place] [address] [place] [address] PCP - General FAMILY PRACTICE 02/13/17 03/10/17 [...] General 06/27/15 09/23/15 Deisi Andrews MD [address] [place] [address] PCP - General FAMILY PRACTICE 06/15/17 10/14/19 Neva Holden MD [facility] [address] [place] [address] PCP - General FAMILY PRACTICE 10/15/19 12/05/19 Deisi Andrews MD [address] [place] [address] PCP - General FAMILY PRACTICE 12/06/19 02/13/20 Neva Holden MD . [facility] [address] [place] [address] PCP - General FAMILY PRACTICE 02/14/20 Asa Mcnamara MD [facility]. [facility] [address] [place] [address] [place] Product Coordinator CARDIOVASCULAR DISEASE 05/15/16 documented as of this encounter
--- OUTSIDE RECORDS SUMMARY | 2024-11-12 05:31 | XMS_ITS | Encounter Summary ---
Author Organization [facility] Address [address] [facility]. [place], [place] [address] [place] [address] Care Team Providers Care Babcock Tester Name Role Phone Dane Sullivan DO Primary Care Provider + [phone] Asa Mcnamara MD Unavailable +[phone] Deisi Andrews MD Primary Care Provider [phone] Md Generic Vivi HUYNH Primary Care Provider Unavailable Dane Sullivan DO Primary Care Provider + [phone] Dane Sullivan DO Primary Care Provider + [phone] Dane Sullivan DO Primary Care Provider + [phone] Dane Sullivan DO Primary Care Provider + [phone] Dane Sullivan DO Primary Care Provider + [phone] Md Generic Vivi HUYNH Primary Care Provider Unavailable Deisi Andrews MD Primary Care Provider +[phone] Encounter Details Date Type Department Care Team (Latest Contact Info) Description 05/10/2015 Abstract [facility] Medical Group Social History Tobacco Use Types Packs/Day Years Used Date Smoking Tobacco: Never Assessed Comments Unknown Sex and Gender Information Value Date Recorded Sex Assigned at Female 12/06/2019 3:36 PM PERINATAL BREASTFEEDING ASSISTANT Legal Sex Female 5:20 PM CDT Gender Identity Female 12/06/2019 3:36 PM PERINATAL BREASTFEEDING ASSISTANT Sexual Orientation Straight 12/06/2019 3: 36 PM PERINATAL BREASTFEEDING ASSISTANT documented as of this encounter Plan of Treatment Not on file documented as of this encounter Visit Diagnoses Not on filedocumented in this encounter Care Teams Babcock Tester Relationship Specialty Start Date End Date Dane Sullivan DO PCP - General FAMILY PRACTICE 05/15/16 02/11/17 Deisi Andrews MD [address] [place] [address] PCP - General FAMILY PRACTICE 02/13/17 03/10/17 [...] General 06/27/15 09/23/15 Deisi Andrews MD [address] [place] [address] PCP - General FAMILY PRACTICE 06/15/17 10/14/19 Asa Mcnamara MD Three [facility]. [facility] [address] [place] [address] [place] Van Cdl Driver CARDIOVASCULAR DISEASE 05/15/16 documented as of this encounter
--- OUTSIDE RECORDS SUMMARY | 2024-11-12 05:31 | XMS_ITS | Encounter Summary ---
Author Organization [facility] Address [address] [facility]. [place], [place] [address] [place] [address] Care Team Providers Care Form Block Maker Name Role Phone Dane Sullivan DO Primary Care Provider + [phone] Asa Mcnamara MD Unavailable [phone] SullivnaDane L DO Primary Care Provider + [phone] SullivanFarnazDane L DO Primary Care Provider + [phone] SullivanFarnazDane L DO Primary Care Provider + [phone] Sullivan Dane L DO Primary Care Provider + [phone] Sullivan Dane L DO Primary Care Provider + [phone] Heber Adorno MD Primary Care Provider Unavailable Encounter Details Date Type Department Care Team (Late st Contact Info) Description 11/13/2014 [facility] [address] [place] [address] Md Generic MD Vivi Social History Tobacco Use Types Packs/Day Years Used Date Smoking Tobacco: Never Assessed Comments Unknown Sex and Gender Information Value Date Recorded Sex Assigned at Female 12/06/2019 3:36 PM SCHOOL PSYCHOLOGICAL EXAMINER Legal Sex Female 5:20 PM CDT Gender Identity Female 12/06/2019 3:36 PM SCHOOL PSYCHOLOGICAL EXAMINER Sexual Orientation Straight 12/06/2019 3: 36 PM SCHOOL PSYCHOLOGICAL EXAMINER documented as of this encounter Plan of Treatment Not on file documented as of this encounter Visit Diagnoses Not on filedocumented in this encounter Care Teams Form Block Maker Relationship Specialty Start Date End Date Dane [...] 06/27/15 09/23/15 Asa Mcnamara MD [facility]. [facility] [address] [place] [address] [place] Financial Administration Officer CARDIOVASCULAR DISEASE 05/15/16 documented as of this encounter
--- OUTSIDE RECORDS SUMMARY | 2024-11-12 05:31 | XMS_ITS | Encounter Summary ---
Author Organization [facility] Address [address] [facility] [place] [address] [place] [address] Care Team Providers Care Clutch Mechanic Name Role Phone Dane Sullivan DO Primary Care Provider + [phone] Asa Mcnamara MD Unavailable +[phone] Deisi Andrews MD Primary Care Provider [phone] Md Generic Conversion Primary Care Provider Unavailable Dane Sullivan DO Primary Care Provider + [phone] Dane Sullivan DO Primary Care Provider + [phone] Dane Sullivan DO Primary Care Provider + [phone] Dane Sullivan DO Primary Care Provider + [phone] Dane Sullivan DO Primary Care Provider + [phone] Md Generic Vivi HUYNH Primary Care Provider Unavailable Deisi Andrews MD Primary Care Provider [phone] Encounter Details Date Type Department Care Team (Late st Contact Info) Description 04/22/2015 Abstract [facility] Medical Group Family Medicine - [address] [phone] Dane Sullivan DO [address] [phone] Social History Tobacco Use Types Packs/Day Years Used Date Smoking Tobacco: Never Assessed Comments Unknown Sex and Gender Information Value Date Recorded Sex Assigned at Female 12/06/2019 3:36 PM STAFF INTERPRETER Legal Sex Female 5:20 PM CDT Gender Identity Female 12/06/2019 3:36 PM STAFF INTERPRETER Sexual Orientation Straight 12/06/2019 3: 36 PM STAFF INTERPRETER documented as of this encounter Last Filed [...] 1:10:47 PM Allergies 1. Halcion Recorded By: Jenniefr Wayne; 04/22/2015 1:02:20 PM 2. Haldol Recorded [...] Dane Sullivan D.O.; Apr 22 2015 1:40PM STAFF INTERPRETER (Author) documented in this encounter Plan of Treatment Not on file documented as of this encounter Visit Diagnoses Not on filedocumented in this encounter Care Teams Clutch Mechanic Relationship Specialty Start Date End Date Dane Sullivan DO PCP - General FAMILY PRACTICE 05/15/16 02/11/17 Deisi Andrews MD [address] [place] [address] [place] [address] PCP - General FAMILY PRACTICE 02/13/17 03/10/17 [...] - General 06/27/15 09/23/15 Deisi Andrews MD [address] [place] [address] [place] [address] PCP - General FAMILY PRACTICE 06/15/17 10/14/19 Asa Mcnamara MD [facility] [address] [place] [address] Industry Planograph Operator CARDIOVASCULAR DISEASE 05/15/16 documented as of this encounter
--- OUTSIDE RECORDS SUMMARY | 2024-11-12 05:31 | XMS_ITS | Encounter Summary ---
Author Organization [facility] Address [address] [facility]. [place], [place] [address] [place] [address] Care Team Providers Care Chief Ultrasound Technologist Name Role Phone Dane Sullivan DO Primary Care Provider + [phone] Asa Mcnamara MD Unavailable +[phone] Deisi Andrews MD Primary Care Provider [phone] Heber Adorno MD Primary Care Provider Unavailable Dane Sullivan DO Primary Care Provider + [phone] Dane Sullivan DO Primary Care Provider + [phone] Dane Sullivan DO Primary Care Provider + [phone] Dane Sullivan DO Primary Care Provider + [phone] Dane Sullivan DO Primary Care Provider + [phone] Heber Adorno MD Primary Care Provider Unavailable Deisi Andrews MD Primary Care Provider [phone] Encounter Details Date Type Department Care Team (Late st Contact Info) Description 08/01/2010 Abstract [place] [address] Heber Adorno MD Social History Tobacco Use Types Packs/Day Years Used Date Smoking Tobacco: Never Assessed Comments Unknown Sex and Gender Information Value Date Recorded Sex Assigned at Female 12/06/2019 3:36 PM MASTER CONTROL TECHNICIAN Legal Sex Female 5:20 PM CDT Gender Identity Female 12/06/2019 3:36 PM MASTER CONTROL TECHNICIAN Sexual Orientation Straight 12/06/2019 3: 36 PM MASTER CONTROL TECHNICIAN documented as of this encounter Plan of Treatment Not on file documented as of this encounter Visit Diagnoses Not on filedocumented in this encounter Care Teams Chief Ultrasound Technologist Relationship Specialty Start Date End Date Dane Sullivan DO PCP - General FAMILY PRACTICE 05/15/16 02/11/17 Deisi Andrews MD [address] [place] [address] PCP - General FAMILY PRACTICE 02/13/17 [...] General 06/27/15 09/23/15 Deisi Andrews MD [address] [place] [address] PCP - General FAMILY PRACTICE 06/15/17 10/14/19 Asa Mcnamara MD [facility] [address] [place] [address] [place] Broadband Technician CARDIOVASCULAR DISEASE 05/15/16 documented as of this encounter
--- OUTSIDE RECORDS SUMMARY | 2024-11-12 05:31 | XMS_ITS | Encounter Summary ---
Author Organization [facility] Address [address] [facility]. [place], [place] [address] [place] [address] Care Team Providers Care Calibration Laboratory Technician Name Role Phone Dane Sullivan DO Primary Care Provider + [phone] Asa Mcnamara MD Unavailable +[phone] Deisi Andrews MD Primary Care Provider [phone] Heber Adorno MD Primary Care Provider Unavailable Dane Sullivan DO Primary Care Provider + [phone] Dane Sullivan DO Primary Care Provider + [phone] Dane Sullivan DO Primary Care Provider + [phone] Dane Sullivan DO Primary Care Provider + [phone] Dane Sullivan DO Primary Care Provider + [phone] Heber Adorno MD Primary Care Provider Unavailable Deisi Andrews MD Primary Care Provider [phone] Encounter Details Date Type Department Care Team (Late st Contact Info) Description 03/05/2010 Abstract [facility] [place] [address] Heber Adorno MD Social History Tobacco Use Types Packs/Day Years Used Date Smoking Tobacco: Never Assessed Comments Unknown Sex and Gender Information Value Date Recorded Sex Assigned at Female 12/06/2019 3:36 PM FOOD SERVICE AMBASSADOR Legal Sex Female 5:20 PM CDT Gender Identity Female 12/06/2019 3:36 PM FOOD SERVICE AMBASSADOR Sexual Orientation Straight 12/06/2019 3: 36 PM FOOD SERVICE AMBASSADOR documented as of this encounter Plan of Treatment Not on file documented as of this encounter Visit Diagnoses Not on filedocumented in this encounter Care Teams Calibration Laboratory Technician Relationship Specialty Start Date End Date Dane Sullivan DO PCP - General FAMILY PRACTICE 05/15/16 02/11/17 Deisi Andrews MD [address] [place] [address] PCP - General FAMILY PRACTICE 02/13/17 03/10/17 [...] General 06/27/15 09/23/15 Deisi Andrews MD [address] [place] [address] PCP - General FAMILY PRACTICE 06/15/17 10/14/19 Asa Mcnamara MD [facility] [address] [place] [address] [place] Health Education Coordinator CARDIOVASCULAR DISEASE 05/15/16 documented as of this encounter
--- OUTSIDE RECORDS SUMMARY | 2024-11-12 05:31 | XMS_ITS | Encounter Summary ---
Author Organization [facility] Address [address] [facility]. [place], [place] [address] [place] [address] Care Team Providers Care Substation Mechanic Name Role Phone Dane Sullivan DO Primary Care Provider + [phone] Asa Mcnamara MD Unavailable +[phone] Deiis Andrews MD Primary Care Provider [phone] Heber Adorno MD Primary Care Provider Unavailable Dane Sullivan DO Primary Care Provider + [phone] Dane Sullivan DO Primary Care Provider + [phone] Dane Sullivan DO Primary Care Provider + [phone] Deisi Andrews MD Primary Care Provider [phone] Encounter Details Date Type Department Care Team (Latest Contact Info) Description 04/03/2016 Abstract [facility] Medical Group Social History Tobacco Use Types Packs/Day Years Used Date Smoking Tobacco: Never Assessed Comments Unknown Sex and Gender Information Value Date Recorded Sex Assigned at Female 12/06/2019 3:36 PM SEALER DRY CELL Legal Sex Female 5:20 PM CDT Gender Identity Female 12/06/2019 3:36 PM SEALER DRY CELL Sexual Orientation Straight 12/06/2019 3: 36 PM SEALER DRY CELL documented as of this encounter Plan of Treatment Not on file documented as of this encounter Visit Diagnoses Not on filedocumented in this encounter Care Teams Substation Mechanic Relationship Specialty Start Date End Date Dane Sullivan DO PCP - General FAMILY PRACTICE 05/15/16 02/11/17 Deisi Andrews MD [address] [place] [address] PCP - General FAMILY PRACTICE 02/13/17 03/10/17 Heber Adorno MD PCP - General 03/11/17 06/14/17 Dane Sullivan DO PCP - General 05/04/16 05/14/16 Dane Sullivan DO PCP - General 04/17/16 05/03/16 Dane Sullivan DO PCP - General 03/26/16 04/16/16 Deisi Andrews MD [address] [place] [address] PCP - General FAMILY PRACTICE 06/15/17 10/14/19 Asa Mcnamara MD [facility]. [facility] [address] [place] [address] Mchenry Tar Heater CARDIOVASCULAR DISEASE 05/15/16 documented as of this encounter
--- OUTSIDE RECORDS SUMMARY | 2024-11-12 05:31 | XMS_ITS | Encounter Summary ---
Author Organization [facility] Address [address] [facility]. [place], [place] [address] [place] [address] Care Team Providers Care Check Weigher Name Role Phone Dane Sullivan DO Primary Care Provider + [phone] Asa Mcnamara MD Unavailable +[phone] Deisi Andrews MD Primary Care Provider [phone] Heber Huynh MD Primary Care Provider Unavailable Dane Sullivan DO Primary Care Provider + [phone] Dane Sullivan DO Primary Care Provider + [phone] Dane Sullivan DO Primary Care Provider + [phone] Deisi Andrews MD Primary Care Provider [phone] Encounter Details Date Type Department Care Team (Late st Contact Info) Description 03/26/[address] [facility] [place] [address] Dane Sullivan DO [address] [id number] Social History Tobacco Use Types Packs/Day Years Used Date Smoking Tobacco: Never Assessed Comments Unknown Sex and Gender Information Value Date Recorded Sex Assigned at Female 12/06/2019 3:36 PM EXPLOSIVES MIXER OPERATOR Legal Sex Female 5:20 PM CDT Gender Identity Female 12/06/2019 3:36 PM EXPLOSIVES MIXER OPERATOR Sexual Orientation Straight 12/06/2019 3: 36 PM EXPLOSIVES MIXER OPERATOR documented as of this encounter Plan [...] - 4.20 mIU/mL 03/26/2016 11:08 PM CDT [facility] Comment:FREE T4 NOT INDICATE D SERUM OR PLASMA SPECIMEN / Unknown 03/26/2016 10:15 AM CDT 03/26/2016 10:41 PM CDT us Generic Conversion Md [facility] Final R esult [facility] [address] [place] [address], * (ABNORMAL) COMPREHENSIVE METABOLIC PANEL (03/26/2016 10:15 AM CDT) GLUCOSE 135(H) 70 - 99 mg/dL 03/26/2016 11:08 PM CDT [facility] BUN 12 8 - 23 mg/dL 03/26/2016 11:08 PM CDT [facility] CREATININE S/P/B 0.70 0.60 - 1.10 mg/dL 03/26/2016 11:08 PM CDT [facility] SODIUM S/P/B 142 136 - 145 mmol/L 03/26/2016 11:08 PM CDT [facility] POTASSIUM S/P/B 4.1 3.5 - 5.1 mmol/L 03/26/2016 11:08 PM CDT [facility] CHLORIDE S/P/B 103 98 - 107 mmol/L 03/26/2016 11:08 PM CDT [facility] CO2 25 22 - 29 mmol/L 03/26/2016 11:08 PM CDT [facility] BILIRUBIN TOTAL S/P/B 0.3 0.2 - 1.2 mg/dL 03/26/2016 11:08 PM CDT [facility] CALCIUM S/P/B 9.3 8.6 - 10.2 mg/dL 03/26/2016 11:08 PM CDT [facility] ALKALINE PHOSPHATASE S/P/B 132(H) 35 - 104 IU/L 03/26/2016 11:08 PM CDT [facility] AST 18 0 - 32 IU/L 03/26/2016 11:08 PM CDT [facility] TOTAL PROTEIN S/P/B 7.4 6.4 - 8.3 g/dL 03/26/2016 11:08 PM CDT [facility] ALBUMIN S/P/B 4.5 3.5 - 5.2 g/dL 03/26/2016 11:08 PM CDT [facility] ALT 32 0 - 33 IU/L 03/26/2016 11:08 PM T [facility] GLOBULIN 2.9 2.3 - 3.6 g/dL 03/26/2016 11:08 PM T [facility] A/G RATIO 1.6 1.0 - 2.0 03/26/2016 11:08 PM CDT [facility] ANION GAP 18 8 - 20 03/26/2016 11:08 PM CDT [facility] EGFR NON-AFR. AMER. >60 >60 mL/min/1.7 [facility] 03/26/2016 11:08 PM CDT [facility] EGFR AFR. AMER. >60 >60 mL/min/1.[address] [facility] 03/26/2016 11:08 PM CDT [facility] Comment: NOTE: eGFR is not calculated for patients <18 years of age. This is an estimated GFR (CKD EPI) and should not be used for calculating drug doses. 03/26/2016 10:1 5 AM CDT 03/26/2016 10:41 PM CDT us Generic Conversion Md [facility]OR[facility] Final R esult [facility] [address] [place] [address], * (ABNORMAL) CBC W/DIFF AUTOMATED (03/26/2016 10:15 AM CDT) WBC 10.1 4.8 - 10.8 X10'3/uL 03/26/2016 11:02 PM CDT [facility] RBC 5.14 4.20 - 5.40 X10'6/uL 03/26/2016 11:02 PM CDT [facility] HGB 14.4 12.0 - 16.0 g/dL 03/26/2016 11:02 PM CDT [facility] HCT 45.4 38.0 - 48.0 % 03/26/2016 11:02 PM CDT [facility] MCV 88.3 81.0 - 99.0 fL 03/26/2016 11:02 PM CDT [facility] MCH 28.0 27.0 - 31.0 pg 03/26/2016 11:02 PM CDT [facility] MCHC 31.7(L) 32.0 - 36.0 g/dL 03/26/2016 11:02 PM CDT [facility] RDW 13.8 11.5 - 14.5 % 03/26/2016 11:02 PM CDT [facility] PLT 236 130 - 400 X10'3/uL 03/26/2016 11:02 PM CDT [facility] MPV 10.3 9.3 - 12.2 fL 03/26/2016 11:02 PM CDT [facility] DIFFERENTIAL TYPE AUTOMATED 03/26/2016 11:02 PM CDT [facility] NEUTROPHILS % 69.0(H) 43.0 - 65.0 % 03/26/2016 11:02 PM CDT [facility] LYMPHOCYTES % 21.9 20.0 - 46.0 % 03/26/2016 11:02 PM CDT [facility] MONOCYTES % 5.7 5.0 - 12.0 % 03/26/2016 11:02 PM CDT [facility] EOSINOPHILS 2.4 1.0 - 3.0 % 03/26/2016 11:02 PM CDT [facility] BASOPHILS 0.5 0.0 - 1.0 % 03/26/2016 11:02 PM CDT [facility] IMMATURE GRANS % 0.5 0.0 - 1.0 % 03/26/2016 11:02 PM CDT [facility] 03/26/2016 10:1 5 AM CDT 03/26/2016 10:41 PM CDT us Generic Conversion Md [facility] Final R esult [facility] [address] [place] [address], documented in this encounter Visit Diagnoses Diagnosis Hyperlipidemia Other and unspecified hyperlipidemia documented in this encounter Care Teams Check Weigher Relationship Specialty Start Date End Date Dane Sullivan DO PCP - General FAMILY PRACTICE 05/15/16 02/11/17 Deisi Andrews MD [address] [place] [address] PCP - General FAMILY PRACTICE 02/13/17 03/10/17 Heber Huynh MD PCP - General 03/11/17 06/14/17 Dane Sullivan DO PCP - General 05/04/16 05/14/16 Dane Sullivan DO PCP - General 04/17/16 05/03/16 Dane Sullivan DO PCP - General 03/26/16 04/16/16 Deisi Andrews MD [address] [place] [address] PCP - General FAMILY PRACTICE 06/15/17 10/14/19 Asa Mcnamara MD [facility]. [facility] [address] [place] [address] [place] Public Welfare Worker CARDIOVASCULAR DISEASE 05/15/16 documented as of this encounter
--- OUTSIDE RECORDS SUMMARY | 2024-11-12 05:31 | XMS_ITS | Encounter Summary ---
Author Organization [facility] Address [address] [facility]. [place], [place] [address] [place] [address] Care Team Providers Care Jewelry Maker Name Role Phone Dane Sullivan DO Primary Care Provider + [phone] Asa Mcnamara MD Unavailable +[phone] Deisi Andrews MD Primary Care Provider [phone] Heber Adorno MD Primary Care Provider Unavailable Dane Sullivan DO Primary Care Provider + [phone] Dane Sullivan DO Primary Care Provider + [phone] Dane Sullivan DO Primary Care Provider + [phone] Dane Sullivan DO Primary Care Provider + [phone] Dane Sullivan DO Primary Care Provider + [phone] Heber Adorno MD Primary Care Provider Unavailable Deisi Andrews MD Primary Care Provider [phone] Encounter Details Date Type Department Care Team (Late st Contact Info) Description 10/07/2005 Abstract [facility] [place] [address] Heber Adorno MD Social History Tobacco Use Types Packs/Day Years Used Date Smoking Tobacco: Never Assessed Comments Unknown Sex and Gender Information Value Date Recorded Sex Assigned at Female 12/06/2019 3:36 PM PERSONAL PROPERTY ASSESSOR Legal Sex Female 5:20 PM CDT Gender Identity Female 12/06/2019 3:36 PM PERSONAL PROPERTY ASSESSOR Sexual Orientation Straight 12/06/2019 3: 36 PM PERSONAL PROPERTY ASSESSOR documented as of this encounter Plan of Treatment Not on file documented as of this encounter Visit Diagnoses Not on filedocumented in this encounter Care Teams Jewelry Maker Relationship Specialty Start Date End Date Dane Sullivan DO PCP - General FAMILY PRACTICE 05/15/16 02/11/17 Deisi Andrews MD [address] [place] [address] PCP - General FAMILY PRACTICE 02/13/17 03/10/17 [...] - General 06/27/15 09/23/15 Deisi Andrews MD [address] [place] [address] [place] [address] PCP - General FAMILY PRACTICE 06/15/17 10/14/19 Asa Mcnamara MD [facility]. [facility] [address] [place] [address] [place] Managing Partner Digital Content Marketing [place] CARDIOVASCULAR DISEASE 05/15/16 documented as of this encounter
--- OUTSIDE RECORDS SUMMARY | 2024-11-12 05:31 | XMS_ITS | Encounter Summary ---
Author Organization [facility] Address [address] [facility] [place], [place] [address] [place] [address] Care Team Providers Care Transformer Builder Name Role Phone Dane Sullivan DO Primary Care Provider + [phone] Asa Mcnamara MD Unavailable [phone] Deisi Andrews MD Primary Care Provider [phone] Md Generic Vivi HUYNH Primary Care Provider Unavailable Dane Sullivan DO Primary Care Provider + [phone] Dane Sullivan DO Primary Care Provider + [phone] Dane Sullivan DO Primary Care Provider + [phone] Dane Sullivan DO Primary Care Provider + [phone] Dane Sullivan DO Primary Care Provider + [phone] Md Generic Vivi HUYNH Primary Care Provider Unavailable Deisi Adnrews MD Primary Care Provider [phone] Encounter Details Date Type Department Care Team (Latest Contact Info) Description 07/31/2015 Abstract [facility] Medical Group Social History Tobacco Use Types Packs/Day Years Used Date Smoking Tobacco: Never Assessed Comments Unknown Sex and Gender Information Value Date Recorded Sex Assigned at Female 12/06/2019 3:36 PM ROOFING TILE SORTER Legal Sex Female 5:20 PM CDT Gender Identity Female 12/06/2019 3:36 PM ROOFING TILE SORTER Sexual Orientation Straight 12/06/2019 3: 36 PM ROOFING TILE SORTER documented as of this encounter Plan of Treatment Not on file documented as of this encounter Visit Diagnoses Not on filedocumented in this encounter Care Teams Transformer Builder Relationship Specialty Start Date End Date Dane Sullivan DO PCP - General FAMILY PRACTICE 05/15/16 02/11/17 Deisi Andrews MD [address] [place] [address] PCP - General FAMILY PRACTICE 02/13/17 03/10/17 [...] General 06/27/15 09/23/15 Deisi Andrews MD [address] [place] [address] PCP - General FAMILY PRACTICE 06/15/17 10/14/19 Asa Mcnamara MD [facility]. [facility] [address] [place] [address] [place] Fisher Seal CARDIOVASCULAR DISEASE 05/15/16 documented as of this encounter
--- OUTSIDE RECORDS SUMMARY | 2024-11-12 05:31 | XMS_ITS | Encounter Summary ---
Author Organization [facility] Address [facility]. [place], [place] [address] [place] [address] Care Team Providers Care Rn Cvicu Name Role Phone Dane Sullivan DO Primary Care Provider + [phone] Asa Mcnamara MD Unavailable [phone] Deisi Andrews MD Primary Care Provider [phone] Heber Adorno MD Primary Care Provider Unavailable Dane Sullivan DO Primary Care Provider + [phone] Dane Sullivan DO Primary Care Provider + [phone] Dane Sullivan DO Primary Care Provider + [phone] Dane Sullivan DO Primary Care Provider + [phone] Deisi Andrews MD Primary Care Provider [phone] Encounter Details Date Type Department Care Team (Latest Contact Info) Description 12/31/2015 Abstract [facility] Medical Group Social History Tobacco Use Types Packs/Day Years Used Date Smoking Tobacco: Never Assessed Comments Unknown Sex and Gender Information Value Date Recorded Sex Assigned at Female 12/06/2019 3:36 PM PIN PULLER Legal Sex Female 5:20 PM CDT Gender Identity Female 12/06/2019 3:36 PM PIN PULLER Sexual Orientation Straight 12/06/2019 3: 36 PM PIN PULLER documented as of this encounter Plan of Treatment Not on file documented as of this encounter Visit Diagnoses Not on filedocumented in this encounter Care Teams Rn Cvicu Relationship Specialty Start Date End Date Dane Sullivan DO PCP - General FAMILY PRACTICE 05/15/16 02/11/17 Deisi Andrews MD [address] [place] [address] PCP - General FAMILY PRACTICE 02/13/17 03/10/17 Heber Adorno MD PCP - General 03/11/17 06/14/17 Dane Sullivan DO PCP - General 05/04/16 05/14/16 Dane Sullivan DO PCP - General 04/17/16 05/03/16 Dane Sullivan DO PCP - General 03/26/16 04/16/16 Dane Sullivan DO PCP - General 11/12/15 03/25/16 Deisi Andrews MD [address] [place] [address] PCP - General FAMILY PRACTICE 06/15/17 10/14/19 Asa Mcnamara MD [facility]. [facility] [address] [place] [address] [place] Asset Protection Professional CARDIOVASCULAR DISEASE 05/15/16 documented as of this encounter
--- OUTSIDE RECORDS SUMMARY | 2024-11-12 05:31 | XMS_ITS | Encounter Summary ---
Author Organization [facility] Address [facility]. [place], [place] [address] [place] [address] Care Team Providers Care Ob/Gyn Name Role Phone Dane Sullivan DO Primary Care Provider + [phone] Asa Mcnamara MD Unavailable +[phone] Deisi Andrews MD Primary Care Provider [phone] Heber Adorno MD Primary Care Provider Unavailable Dane Sullivan DO Primary Care Provider + [phone] Dane Sullivan DO Primary Care Provider + [phone] Dane Sullivan DO Primary Care Provider + [phone] Deisi Andrews MD Primary Care Provider [phone] Encounter Details Date Type Department Care Team (Latest Contact Info) Description 04/16/2016 Abstract [facility] Social History Tobacco Use Types Packs/Day Years Used Date Smoking Tobacco: Never Assessed Comments Unknown Sex and Gender Information Value Date Recorded Sex Assigned at Female 12/06/2019 3:36 PM FIRST HELPER Legal Sex Female 5:20 PM CDT Gender Identity Female 12/06/2019 3:36 PM FIRST HELPER Sexual Orientation Straight 12/06/2019 3: 36 PM FIRST HELPER documented as of this encounter Plan of Treatment Not on file documented as of this encounter Visit Diagnoses Not on filedocumented in this encounter Care Teams Ob/Gyn Relationship Specialty Start Date End Date Dane Sullivan DO PCP - General FAMILY PRACTICE 05/15/16 02/11/17 Deisi Andrews MD [address] [place] [address] PCP - General FAMILY PRACTICE 02/13/17 03/10/17 Heber Adorno MD PCP - General 03/11/17 06/14/17 Dane Sullivan DO PCP - General 05/04/16 05/14/16 Dane Sullivan DO PCP - General 04/17/16 05/03/16 Dane Sullivan DO PCP - General 03/26/16 04/16/16 Deisi Andrews MD [address] [place] [address] PCP - General FAMILY PRACTICE 06/15/17 10/14/19 Asa Mcnam[address] MD [facility]. [facility] [address] [place] [address] [place] Superintendent CARDIOVASCULAR DISEASE 05/15/16 documented as of this encounter
--- OUTSIDE RECORDS SUMMARY | 2024-11-12 05:31 | XMS_ITS | Encounter Summary ---
Author Organization [facility] Address [address] [facility]. [place], [place] [address] [place] [address] Care Team Providers Care Hide Cooking Operator Name Role Phone Dane Sullivan DO Primary Care Provider + [phone] Asa Mcnamara MD Unavailable +[phone] Deisi Andrews MD Primary Care Provider [phone] Heber Adorno MD Primary Care Provider Unavailable Dane Sullivan DO Primary Care Provider + [phone] Dane Sullivan DO Primary Care Provider + [phone] Dane Sullivan DO Primary Care Provider + [phone] Dane Sullivan DO Primary Care Provider + [phone] Dane Sullivan DO Primary Care Provider + [phone] Heber Adorno MD Primary Care Provider Unavailable Deisi Andrews MD Primary Care Provider [phone] Encounter Details Date Type Department Care Team (Late st Contact Info) Description 10/07/[address] [facility] [place] [address] Heber Adorno MD Social History Tobacco Use Types Packs/Day Years Used Date Smoking Tobacco: Never Assessed Comments Unknown Sex and Gender Information Value Date Recorded Sex Assigned at Female 12/06/2019 3:36 PM GEOPHYSICAL LABORATORY CHIEF Legal Sex Female 5:20 PM CDT Gender Identity Female 12/06/2019 3:36 PM GEOPHYSICAL LABORATORY CHIEF Sexual Orientation Straight 12/06/2019 3: 36 PM GEOPHYSICAL LABORATORY CHIEF documented as of this encounter Plan of Treatment Not on file documented as of this encounter Visit Diagnoses Not on filedocumented in this encounter Care Teams Hide Cooking Operator Relationship Specialty Start Date End Date Dane Sullivan DO PCP - General FAMILY PRACTICE 05/15/16 02/11/17 Deisi Andrews MD [address] [place] [address] PCP - General FAMILY PRACTICE 02/13/17 03/10/17 [...] - General 06/27/15 09/23/15 Deisi Andrews MD [address] [place] [address] [place] [address] PCP - General FAMILY PRACTICE 06/15/17 10/14/19 Asa Mcnamara MD [facility]. [facility] [address] [place] [address] [place] Meter Calibrator CARDIOVASCULAR DISEASE 05/15/16 documented as of this encounter
--- OUTSIDE RECORDS SUMMARY | 2024-11-12 05:31 | XMS_ITS | Encounter Summary ---
Author Organization [facility] Address [address] [facility]. [place], [place] [address] [place] [address] Care Team Providers Care Computer Clerk Name Role Phone Dane Sullivan DO Primary Care Provider + [phone] Asa Mcnamara MD Unavailable [phone] Deisi Andrews MD Primary Care Provider [phone] Heber Adorno MD Primary Care Provider Unavailable Dane Sullivan DO Primary Care Provider + [phone] Dane Sullivan DO Primary Care Provider + [phone] Dane Sullivan DO Primary Care Provider + [phone] Deisi Andrews MD Primary Care Provider [phone] Encounter Details Date Type Department Care Team (Late st Contact Info) Description 04/09/2016 Abstract [facility] Family Medicine - [address] [id number] Leo Meza MD Social History Tobacco Use Types Packs/Day Years Used Date Smoking Tobacco: Never Assessed Comments Unknown Sex and Gender Information Value Date Recorded Sex Assigned at Female 12/06/2019 3:36 PM TIGHTENING 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 Legal Sex Female 5:20 PM CDT Gender Identity Female 12/06/2019 3:36 PM TIGHTENING 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 Sexual Orientation Straight 12/06/2019 3: 36 PM TIGHTENING 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 documented as of this encounter Progress Notes * Dane Sullivan DO - 04/09/2016 1:22 PM CDT Verified Results *Urine dip auto In Office [id number] 10:14AM Dane Sullivan Test Name Result Flag Reference Color Yellow Clarity Clear Glucose Negative Bilirubin Negative Ketones Negative Specific [place] 1.025 Blood Negative pH 6.5 5.0 - [...] filedocumented in this encounter Care Teams Computer Clerk Relationship Specialty Start Date End Date Dane Sullivan DO PCP - General FAMILY PRACTICE 05/15/16 02/11/17 Deisi Andrews MD [address] [place] [address] PCP - General FAMILY PRACTICE 02/13/17 03/10/17 Heber Adorno MD PCP - General 03/11/17 06/14/17 Dane Sullivan DO PCP - General 05/04/16 05/14/16 Dane Sullivan DO PCP - General 04/17/16 05/03/16 Dane Sullivan DO PCP - General 03/26/16 04/16/16 Deisi Andrews MD [address] [place] [address] PCP - General FAMILY PRACTICE 06/15/17 10/14/19 Asa Mcnamara MD [facility]. [facility] [address] [place] [address] [place] Claim Inspector CARDIOVASCULAR DISEASE 05/15/16 documented as of this encounter
--- OUTSIDE RECORDS SUMMARY | 2024-11-12 05:31 | XMS_ITS | Encounter Summary ---
Author Organization [facility] Address [facility]. [place], [place] [address] [place] [address] Care Team Providers Care Potato Peeling Machine Operator Name Role Phone Dane Sullivan DO Primary Care Provider + [phone] Dane Sullivan DO Primary Care Provider + [phone] Encounter Details Date Type Department Care Team (Late st Contact Info) Description 03/26/2016 Abstract [facility] [address] [place] [address] , Heber Trinidad MD Social History Tobacco Use Types Packs/Day Years Used Date Smoking Tobacco: Never Assessed Comments Unknown Sex and Gender Information Value Date Recorded Sex Assigned at Female 12/06/2019 3:36 PM GLAZE GRINDER Legal Sex Female 5:20 PM CDT Gender Identity Female 12/06/2019 3:36 PM GLAZE GRINDER Sexual Orientation Straight 12/06/2019 3: 36 PM GLAZE GRINDER documented as of this encounter Plan of [...] Generic Conversion Md HUYNH LABORATORY Final R ishBowl Performing Organization Address City/[facility]/ZIP Co de Phone Number MEDINFORMAT[employer] TO EPIC [...] on filedocumented in this encounter Care Teams Potato Peeling Machine Operator Relationship Specialty Start Date End Date Dane Sullivan DO PCP - General 04/17/16 05/03/16 Dane Sullivan DO PCP - General 03/26/16 04/16/16 documented as of this encounter
--- OUTSIDE RECORDS SUMMARY | 2024-11-12 05:31 | XMS_ITS | Encounter Summary ---
Author Organization [facility] Address [address] [facility]. [place], [place] [address] [place] [address] Care Team Providers Care Cloth Finisher Name Role Phone Dane Sullivan DO Primary Care Provider + [phone] Asa Mcnamara MD Unavailable +[phone] Deisi Andrews MD Primary Care Provider [phone] Heber Adorno MD Primary Care Provider Unavailable Dane Sullivan DO Primary Care Provider + [phone] Dane Sullivan DO Primary Care Provider + [phone] Dane Sullivan DO Primary Care Provider + [phone] Deisi Andrews MD Primary Care Provider [phone] Encounter Details Date Type Department Care Team (Late st Contact Info) Description 04/14/2016 Abstract [facility] [place] [address] [place] [address] Carlin Jaquez, DPDilcia [address] [place] [address] Social History Tobacco Use Types Packs/Day Years Used Date Smoking Tobacco: Never Assessed Comments Unknown Sex and Gender Information Value Date Recorded Sex Assigned at Female 12/06/2019 3:36 PM EPIC INTERFACE ANALYST Legal Sex Female 5:20 PM CDT Gender Identity Female 12/06/2019 3:36 PM EPIC INTERFACE ANALYST Sexual Orientation Straight 12/06/2019 3: 36 PM EPIC INTERFACE ANALYST documented as of this encounter Last Filed [...] Smoking (305.1) (F17.200) Immunizations Influenza --- Series1: [id number] Current Meds 1. AmLODIPine Besylate 5 MG Oral Tablet; TAKE 1 TABLET DAILY DIRECTED; Therapy: 25Sep2015 to (Evaluate:22Sep2016) Requested for: 01Apr2016; Last Rx:26Mar2016 Ordered 2. Aspirin 325 MG Oral Tablet; Therapy: (Recorded:[id number]) to Recorded 3. Cyclobenzaprine HCl - 10 MG Oral Tablet; TAKE 1 TABLET QD-BID PRN; Therapy: 27Nov2015 to (Last Rx:27Nov2015) Requested for: [id number] Ordered 4. Losartan Potassium 100 MG Oral Tablet; TAKE ONE TABLET BY MOUTH ONCE DAILY; Therapy: 10Mar2016 to (Evaluate:05Dec2016) Requested for: 01Apr2016; Last Rx:10Mar2016 Ordered 5. MetFORMIN HCl - 500 MG Oral Tablet; TAKE ONE TABLET BY MOUTH TWICE DAILY WITH MEALS; Therapy: 10Mar2016 to (Evaluate:31Sto0537) Requested for: 01Apr2016; Last Rx:10Mar2016 Ordered 6. Montelukast Sodium 10 MG Oral Tablet (Singulair); TAKE 1 TABLET DAILY Requested for: 01Apr2016; Last Rx:[id number] Ordered 7. Pravastatin Sodium 40 MG Oral Tablet; TAKE ONE TABLET BY MOUTH ONCE DAILY; Therapy: 66Qtf1397 to (Evaluate:79Ugc3565) Requested for: 01Apr2016; Last Rx:12Feb2016 Ordered 8. [...] EVERY 4 TO 6 HOURS NEEDED; Therapy: 53Rnj0472 to (Evaluate:22Feb2016) Requested for: 01Apr2016; Last Rx:[id number] Ordered 12. Xanax 1 MG Oral Tablet [...] pedicle. Results/Data *Urine dip auto In Office [id number] 10:14AM Dane Sullivan Test Name Result Flag Reference Color Yellow Clarity Clear Glucose Negative Bilirubin Negative Ketones Negative Specific [place] 1.025 Blood Negative pH 6.5 5.0 - [...] Carlin Jaquez DPM; Apr 22 2016 1:35PM EPIC INTERFACE ANALYST (Author) documented in this encounter Plan of Treatment Not on file documented as of this encounter Visit Diagnoses Not on filedocumented in this encounter Care Teams Cloth Finisher Relationship Specialty Start Date End Date Dane Sullivan DO PCP - General FAMILY PRACTICE 05/15/16 02/11/17 Deisi Andrews MD [address] [place] [address] PCP - General FAMILY PRACTICE 02/13/17 03/10/17 Heber Adorno MD PCP - General 03/11/17 06/14/17 Dane Sullivan DO PCP - General 05/04/16 05/14/16 Dane Sullivan DO PCP - General 04/17/16 05/03/16 Dane Sullivan DO PCP - General 03/26/16 04/16/16 Deisi Andrews MD [address] [place] [address] [place] [address] PCP - General FAMILY PRACTICE 06/15/17 10/14/19 Asa Mcnamara MD [facility]. [facility] [address] [place] [address] [place] Junior Architect CARDIOVASCULAR DISEASE 05/15/16 documented as of this encounter
--- OUTSIDE RECORDS SUMMARY | 2024-11-12 05:31 | XMS_ITS | Encounter Summary ---
Author Organization [facility] Address [address] [facility]. [place], [place] [address] [place] [address] Care Team Providers Care Leather Carver Name Role Phone Dane Sullivan DO Primary Care Provider + [phone] Asa Mcnamara MD Unavailable +[phone] Deisi Andrews MD Primary Care Provider [phone] Heber Adorno MD Primary Care Provider Unavailable Dane Sullivan DO Primary Care Provider + [phone] Dane Sullivan DO Primary Care Provider + [phone] Dane Sullivan DO Primary Care Provider + [phone] Deisi Andrews MD Primary Care Provider [phone] Encounter Details Date Type Department Care Team (Late st Contact Info) Description 03/26/2016 Abstract [facility] Family Medicine - [address] [phone] Dane Sullivan DO [address] [address] Social History Tobacco Use Types Packs/Day Years Used Date Smoking Tobacco: Never Assessed Comments Unknown Sex and Gender Information Value Date Recorded Sex Assigned at Female 12/06/2019 3:36 PM INTERIOR DESIGN TEACHER Legal Sex Female 5:20 PM CDT Gender Identity Female 12/06/2019 3:36 PM INTERIOR DESIGN TEACHER Sexual Orientation Straight 12/06/2019 3: 36 PM INTERIOR DESIGN TEACHER documented as of this encounter Last Filed [...] Body Mass Index 41.41 09/24/2015 1:13 PM INTERIOR DESIGN TEACHER documented in this encounter Progress Notes [...] PRESSURE; Therapy: 25Sep2015 to (Evaluate:10May2016) Requested for: 18Nsb0231; Last Rx:[id number] Ordered 3. Aspirin 325 MG Oral Tablet; Therapy: (Recorded:22Apr2015) to Recorded 4. Ativan TABS; Therapy: (Recorded:69Kss4764) to Recorded 5. Benzonatate 200 MG Oral Capsule; TAKE 1 CAPSULE 3 TIMES DAILY NEEDED; Therapy: 24Sep2015 to (Evaluate:04Oct2015) Requested for: 24Sep2015; Last Rx:24Sep2015 Ordered 6. Cholestyramine 4 GM/DOSE Oral Powder; MIX 1 SCOOP IN LIQUID AND DRINK TWICE DAILY; Therapy: 25Sep2015 to (Evaluate:04Awd1554) Requested for: 25Sep2015; Last Rx:25Sep2015 Ordered 7. Cyclobenzaprine HCl - 10 MG Oral Tablet; TAKE 1 TABLET QD-BID PRN; Therapy: 27Nov2015 to (Last Rx:27Nov2015) Requested for: 27Nov2015 Ordered 8. Diclofenac Sodium 75 MG Oral Tablet Delayed Release; Therapy: 02May2015 to Recorded 9. Hydrocodone-Acetaminophen 10-325 MG Oral Tablet; TAKE 1 TABLET TID NEEDED FOR PAIN; Last Rx:[id number] Ordered 10. Ibuprofen 600 MG Oral Tablet; Therapy: 54Kdy8305 to Recorded 11. Losartan Potassium 100 MG Oral Tablet; TAKE ONE TABLET BY MOUTH ONCE DAILY; Therapy: 10Mar2016 to (Evaluate:05Dec2016) Requested for: 10Mar2016; Last Rx:10Mar2016 Ordered 12. MetFORMIN HCl - 500 MG Oral Tablet; TAKE ONE TABLET BY MOUTH TWICE DAILY WITH MEALS; Therapy: 10Mar2016 to (Evaluate:18Lux5264) Requested for: 10Mar2016; Last Rx:10Mar2016 Ordered 13. Montelukast Sodium 10 MG Oral Tablet; TAKE 1 TABLET DAILY Requested for: 12Aug2015; Last Rx:12Aug2015 Ordered 14. Dtyfbauo-Uitzyried-LG 3.5-07537-4 Otic Suspension; Therapy: 21May2015 to Recorded 15. Nicotine 21 MG/24HR Transdermal Patch 24 Hour; APPLY ONE PATCH TOPICALLY ONCE DAILY FOR 28 DAYS; Therapy: 55Ets1298 to (Evaluate:22Jan2016) Requested for: 94Yol6090; Last Rx:[id number] Ordered 16. Pravastatin Sodium 40 MG Oral Tablet; TAKE ONE TABLET BY MOUTH ONCE DAILY; Therapy: 49Ycp0628 to (Evaluate:61Sle7862) Requested for: 12Feb2016; Last Rx:12Feb2016 Ordered 17. [...] EVERY 4 TO 6 HOURS NEEDED; Therapy: 72Xrl6789 to (Evaluate:22Feb2016) Requested for: 16Dec2015; Last Rx:16Dec2015 [...] callosity; Ordered By: Dane Sullivan Performed: Due: 70Kze3420 of Visits Requested : 18 Hyperlipidemia 3. [...] - Specimen/Data Collected; Done: 26Mar2016 Perform:[facility]; Due:25Apr2016; Last Updated By:Isreal Peter; 03/26/2016 [...] Hypertension; ADAM = N; Verified Transmission to [facility]; Last Updated By: Ezra Baez; 03/26/2016 9:57:06AM Unlinked 10. Phbthlfc-Fbrvhinjp-OU 3.5-71496-1 Otic Suspension Rx By: GANGA BELLA; Dispense: [...] Dane Sullivan D.O.; Mar 26 2016 10:26AM INTERIOR DESIGN TEACHER (Author) documented in this encounter Plan of [...] DO LABORATORY Final Result Performing Organization Address [facility] Co de Phone Number [employer] TO EPIC [...] DO LABORATORY Final Result Performing Organization Address City/[facility]/ZIP Co de Phone Number [employer] TO EPIC CONVERSION * (ABNORMAL) COMPREHENSIVE METABOLIC PANEL (03/26/2016 10:15 AM CDT) Pathologist [facility] SODIUM S/P/B 142 136 [phone] 145 mmol/L [...] on filedocumented in this encounter Care Teams Leather Carver Relationship Specialty Start Date End Date Dane Sullivan DO PCP - General FAMILY PRACTICE 05/15/16 02/11/17 Deisi Andrews MD [address] [address] PCP - General FAMILY PRACTICE 02/13/17 03/10/17 Heber Adorno MD PCP - General 03/11/17 06/14/17 Dane Sullivan DO PCP - General 05/04/16 05/14/16 Dane Sullivan DO PCP - General 04/17/16 05/03/16 Dane Sullivan DO PCP - General 03/26/16 04/16/16 Deisi Andrews MD [address] [place] [address] PCP - General FAMILY PRACTICE 06/15/17 10/14/19 Asa Mcnamara MD Three [facility]. [facility] [address] [place], [place] [address] [place] Cold Roll Inspector CARDIOVASCULAR DISEASE 05/15/16 documented as of this encounter
--- OUTSIDE RECORDS SUMMARY | 2024-11-12 05:31 | XMS_ITS | Encounter Summary ---
Author Organization [facility] Address [address] [facility]. [place], [place] [address] [place] [address] Care Team Providers Care Burr Bench Operator Name Role Phone Dane Sullivan DO Primary Care Provider + [phone] Asa Mcnamara MD Unavailable [phone] Deisi Andrews MD Primary Care Provider [phone] Md Generic Vivi HUYNH Primary Care Provider Unavailable Dane Sullivan DO Primary Care Provider + [phone] Dane Sullivan DO Primary Care Provider + [phone] Dane Sullivan DO Primary Care Provider + [phone] Dane Sullivan DO Primary Care Provider + [phone] Dane Sullivan DO Primary Care Provider + [phone] Md Generic Vivi HUYNH Primary Care Provider Unavailable Deisi Andrews MD Primary Care Provider [phone] Encounter Details Date Type Department Care Team (Latest Contact Info) Description 07/02/2015 Abstract [facility] Social History Tobacco Use Types Packs/Day Years Used Date Smoking Tobacco: Never Assessed Comments Unknown Sex and Gender Information Value Date Recorded Sex Assigned at Female 12/06/2019 3:36 PM CYBER POLICY AND STRATEGY PLANNER Legal Sex Female 5:20 PM CDT Gender Identity Female 12/06/2019 3:36 PM CYBER POLICY AND STRATEGY PLANNER Sexual Orientation Straight 12/06/2019 3: 36 PM CYBER POLICY AND STRATEGY PLANNER documented as of this encounter Progress Notes [...] Dane Sullivan D.O.; Jul 02 2015 8:45AM CYBER POLICY AND STRATEGY PLANNER (Author) documented in this encounter Plan of Treatment Not on file documented as of this encounter Visit Diagnoses Not on filedocumented in this encounter Care Teams Burr Bench Operator Relationship Specialty Start Date End Date Dane Sullivan DO PCP - General FAMILY PRACTICE 05/15/16 02/11/17 Deisi Andrews MD [address] [place] [address] PCP - General FAMILY PRACTICE 02/13/17 03/10/17 [...] General 06/27/15 09/23/15 Deisi Andrews MD [address] [place] [address] PCP - General FAMILY PRACTICE 06/15/17 10/14/19 Asa Mcnamara MD [facility]. [facility] [address] [place] [address] [place] Horticulture Professor CARDIOVASCULAR DISEASE 05/15/16 documented as of this encounter
--- OUTSIDE RECORDS SUMMARY | 2024-11-12 05:31 | XMS_ITS | Encounter Summary ---
Author Organization [facility] Address [address] [facility]. [place], [place] [address] [place] [address] Care Team Providers Care Contract Clerk Automobile Name Role Phone Dane Sullivan DO Primary Care Provider + [phone] Asa Mcnamara MD Unavailable [phone] Deisi Andrews MD Primary Care Provider [phone] Md Generic Vivi HUYNH Primary Care Provider Unavailable Dane Sullivan DO Primary Care Provider + [phone] Dane Sullivan DO Primary Care Provider + [phone] Dane Sullivan DO Primary Care Provider + [phone] Dane Sullivan DO Primary Care Provider + [phone] Dane Sullivan DO Primary Care Provider + [phone] Md Generic Vivi HUYNH Primary Care Provider Unavailable Deisi Andrews MD Primary Care Provider [phone] Encounter Details Date Type Department Care Team (Latest Contact Info) Description 08/15/2015 Abstract [facility] Social History Tobacco Use Types Packs/Day Years Used Date Smoking Tobacco: Never Assessed Comments Unknown Sex and Gender Information Value Date Recorded Sex Assigned at Female 12/06/2019 3:36 PM CLAY PIGEON LOADER Legal Sex Female 5:20 PM CDT Gender Identity Female 12/06/2019 3:36 PM CLAY PIGEON LOADER Sexual Orientation Straight 12/06/2019 3: 36 PM CLAY PIGEON LOADER documented as of this encounter Plan of Treatment Not on file documented as of this encounter Visit Diagnoses Not on filedocumented in this encounter Care Teams Contract Clerk Automobile Relationship Specialty Start Date End Date Dane Sullivan DO PCP - General FAMILY PRACTICE 05/15/16 02/11/17 Deisi Andrews MD [address] [place] [address] PCP - General FAMILY PRACTICE 02/13/17 03/10/17 [...] General 06/27/15 09/23/15 Deisi Andrews MD [address] [place] [address] PCP - General FAMILY PRACTICE 06/15/17 10/14/19 Asa Mcnamara MD Three [facility]. [facility] [address] [place] [address] [place] Collateral Specialist CARDIOVASCULAR DISEASE 05/15/16 documented as of this encounter
--- OUTSIDE RECORDS SUMMARY | 2024-11-12 05:31 | XMS_ITS | Encounter Summary ---
Author Organization [facility] Address [address] [facility]. [place], [place] [address] [place] [address] Care Team Providers Care Panel Machine Tender Name Role Phone Dane Sullivan DO Primary Care Provider + [phone] Asa Mcnamara MD Unavailable [phone] Deisi Andrews MD Primary Care Provider [phone] Md Generic Vivi HUYNH Primary Care Provider Unavailable Dane Sullivan DO Primary Care Provider + [phone] Dane Sullivan DO Primary Care Provider + [phone] Dane Sullivan DO Primary Care Provider + [phone] Dane Sullivan DO Primary Care Provider + [phone] Dane Sullivan DO Primary Care Provider + [phone] Md Generic Vivi HUYNH Primary Care Provider Unavailable Deisi Andrews MD Primary Care Provider [phone] Encounter Details Date Type Department Care Team (Latest Contact Info) Description 05/27/[address] [facility] Medical Group Social History Tobacco Use Types Packs/Day Years Used Date Smoking Tobacco: Never Assessed Comments Unknown Sex and Gender Information Value Date Recorded Sex Assigned at Female 12/06/2019 3:36 PM ITEM PROCESSING CLERK Legal Sex Female 5:20 PM CDT Gender Identity Female 12/06/2019 3:36 PM ITEM PROCESSING CLERK Sexual Orientation Straight 12/06/2019 3: 36 PM ITEM PROCESSING CLERK documented as of this encounter Plan of Treatment Not on file documented as of this encounter Visit Diagnoses Not on filedocumented in this encounter Care Teams Panel Machine Tender Relationship Specialty Start Date End Date Dane Sullivan DO PCP - General FAMILY PRACTICE 05/15/16 02/11/17 Deisi Andrews MD [address] [place] [address] PCP - General FAMILY PRACTICE 02/13/17 03/10/17 Heber Huynh MD PCP - General 03/11/17 06/14/17 Dane Sullivan DO PCP - General 05/04/16 05/14/16 Dane Sullivan DO PCP - General 04/17/16 05/03/16 Dane Sullivan DO PCP - General 03/26/16 04/16/16 Dane Sullivan DO PCP - General 11/12/15 03/25/16 Dane Sullivan DO PCP - General 09/24/15 11/11/15 Heber Huynh MD PCP - General 06/27/15 09/23/15 Diesi Andrews MD [address] [place] [address] PCP - General FAMILY PRACTICE 06/15/17 10/14/19 Asa Mcnamara MD Three [facility]. [facility] [address] [place] [address] [place] Electrician Elevator Maintenance CARDIOVASCULAR DISEASE 05/15/16 documented as of this encounter
--- OUTSIDE RECORDS SUMMARY | 2024-11-12 05:31 | XMS_ITS | Encounter Summary ---
Author Organization [facility] Address [address] [facility]. [place], [place] [address] [place] [address] Care Team Providers Care Subgrade Roller Operator Name Role Phone Dane Sullivan DO Primary Care Provider + [phone] Asa Mcnamara MD Unavailable +[phone] Deisi Andrews MD Primary Care Provider [phone] Heber Adorno MD Primary Care Provider Unavailable Dane Sullivan DO Primary Care Provider + [phone] Dane Sullivan DO Primary Care Provider + [phone] Dane Sullivan DO Primary Care Provider + [phone] Deisi Andrews MD Primary Care Provider [phone] Encounter Details Date Type Department Care Team (Late st Contact Info) Description 04/14/2016 Abstract [facility] [address] [place] [address] Carlin Jaquez, WILFREDO [address] [place] [address] Social History Tobacco Use Types Packs/Day Years Used Date Smoking Tobacco: Never Assessed Comments Unknown Sex and Gender Information Value Date Recorded Sex Assigned at Female 12/06/2019 3:36 PM DECOMMISSIONING WELL SITE MANAGER Legal Sex Female 5:20 PM CDT Gender Identity Female 12/06/2019 3:36 PM DECOMMISSIONING WELL SITE MANAGER Sexual Orientation Straight 12/06/2019 3: 36 PM DECOMMISSIONING WELL SITE MANAGER documented as of this encounter Plan of Treatment Not on file documented as of this encounter Visit Diagnoses Diagnosis Soft tissue disorder Disorders of soft tissue, unspecified documented in this encounter Care Teams Subgrade Roller Operator Relationship Specialty Start Date End Date Dane Sullivan DO PCP - General FAMILY PRACTICE 05/15/16 02/11/17 Deisi Andrews MD [address] [place] [address] PCP - General FAMILY PRACTICE 02/13/17 03/10/17 Heber Adorno MD PCP - General 03/11/17 06/14/17 Dane Sullivan DO PCP - General 05/04/16 05/14/16 Dane Sullivan DO PCP - General 04/17/16 05/03/16 Dane Sullivan DO PCP - General 03/26/16 04/16/16 Deisi Andrews MD [address] [place] [address] PCP - General FAMILY PRACTICE 06/15/17 10/14/19 Asa Mcnamara MD [facility]. [facility] [address] [place] [address] [place] Guyline Operator CARDIOVASCULAR DISEASE 05/15/16 documented as of this encounter
--- OUTSIDE RECORDS SUMMARY | 2024-11-12 05:31 | XMS_ITS | Encounter Summary ---
Author Organization [facility] Address [address] [facility]. [place], [place] [address] [place] [address] Care Team Providers Care Vocational Training Teacher Name Role Phone Dane Sullivan DO Primary Care Provider + [phone] Asa Mcnamara MD Unavailable +[phone] Deisi Andrews MD Primary Care Provider [phone] Heber Adorno MD Primary Care Provider Unavailable Dane Sullivan DO Primary Care Provider + [phone] Dane Sullivan DO Primary Care Provider + [phone] Dane Sullivan DO Primary Care Provider + [phone] Deisi Andrews MD Primary Care Provider [phone] Encounter Details Date Type Department Care Team (Latest Contact Info) Description 04/14/2016 Abstract [facility] Carlin Jaquez, WILFREDO [address] [place] [address] Social History Tobacco Use Types Packs/Day Years Used Date Smoking Tobacco: Never Assessed Comments Unknown Sex and Gender Information Value Date Recorded Sex Assigned at Female 12/06/2019 3:36 PM MIRROR FINISHING 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 Legal Sex Female 5:20 PM CDT Gender Identity Female 12/06/2019 3:36 PM MIRROR FINISHING 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 Sexual Orientation Straight 12/06/2019 3: 36 PM MIRROR FINISHING 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 documented as of this encounter Plan of Treatment Not on file documented as of this encounter Procedures Procedure Name Priority Date/Time Associated Diagnosis Comments TISSUE EXAM BY PATHOLOGIST Routine 04/14/2016 12:00 AM CDT documented in this encounter Results * TISSUE EXAM BY PATHOLOGIST (04/14/2016 12:00 AM CDT) COPATH REPORT SURG ? - Surgical Pathology Report Patient Name: RODY CRUZ Med. Rec. #:[id number] : 1960 (Age: 55) Gender: F Physician(s): Carlin Sullivan Location: [facility] Room Number: Billing #: [id number]\ Copy To: Collected: 04/14/2016 Received: 04/15/2016 Reported: 04/17/2016 Specimen(s) Lesion, left great toe Final Pathologic Diagnosis LESION, LEFT GREAT TOE, BIOPSY: ? BENIGN FIBROEPITHELIAL POLYP. ? MILD DERMAL CHRONIC INFLAMMATION. ? NO MALIGNANT CHANGE IDENTIFIED. [facility]/04/17/2016 Electronically Signed Out ByArchana Alvarado MD Microscopic [...] a single cassette./ /max/04/16/2016 Billing Fee Code(s): 05536 [employer] TO EPIC CONVERSION 04/14/2016 04/14/2016 Narrative [facility] TO EPIC CONVERSION - 04/15/2016 10:59 AM CDT Result Communication: No patient communication needed at this time Carlin Jaquez DPM PATHOLOGY/CYTOLOGY ORDERABLES Fi nal Result [facility] TO EPIC CONVERSION documented in this encounter Visit Diagnoses Not on filedocumented in this encounter Care Teams Vocational Training Teacher Relationship Specialty Start Date End Date Dane Sullivan DO PCP - General FAMILY PRACTICE 05/15/16 02/11/17 Deisi Andrews MD [address] [place] [address] PCP - General FAMILY PRACTICE 02/13/17 03/10/17 Heber Adorno MD PCP - General 03/11/17 06/14/17 Dane Sullivan DO PCP - General 05/04/16 05/14/16 Dane Sullivan DO PCP - General 04/17/16 05/03/16 Dane Sullivan DO PCP - General 03/26/16 04/16/16 Deisi Andrews MD [address] [place] [address] PCP - General FAMILY PRACTICE 06/15/17 10/14/19 Asa Mcnamara MD [address] [address] Stephen Executive Office Manager CARDIOVASCULAR DISEASE 05/15/16 documented as of this encounter
--- OUTSIDE RECORDS SUMMARY | 2024-11-12 05:31 | XMS_ITS | Encounter Summary ---
Author Organization [facility] Address [facility]. [place], [place] [address] [place] [address] Care Team Providers Care Mulcher Operator Name Role Phone Dane Sullivan DO Primary Care Provider + [phone] Asa Mcnamara MD Unavailable +[phone] Deisi Andrews MD Primary Care Provider [phone] Heber Adorno MD Primary Care Provider Unavailable Dane Sullivan DO Primary Care Provider + [phone] Dane Sullivan DO Primary Care Provider + [phone] Dane Sullivan DO Primary Care Provider + [phone] Dane Sullivan DO Primary Care Provider + [phone] Deisi Andrews MD Primary Care Provider [phone] Encounter Details Date Type Department Care Team (Latest Contact Info) Description 03/17/2016 Abstract [facility] Social History Tobacco Use Types Packs/Day Years Used Date Smoking Tobacco: Never Assessed Comments Unknown Sex and Gender Information Value Date Recorded Sex Assigned at Female 12/06/2019 3:36 PM RIM FIRE CHARGER OPERATOR Legal Sex Female 5:20 PM CDT Gender Identity Female 12/06/2019 3:36 PM RIM FIRE CHARGER OPERATOR Sexual Orientation Straight 12/06/2019 3: 36 PM RIM FIRE CHARGER OPERATOR documented as of this encounter Plan of Treatment Not on file documented as of this encounter Visit Diagnoses Not on filedocumented in this encounter Care Teams Mulcher Operator Relationship Specialty Start Date End Date Dane Sullivan DO PCP - General FAMILY PRACTICE 05/15/16 02/11/17 Deisi Andrews MD [address] [place] [address] PCP - General FAMILY PRACTICE 02/13/17 03/10/17 Heber Adorno MD PCP - General 03/11/17 06/14/17 Dane Sullivan DO PCP - General 05/04/16 05/14/16 Dane Sullivan DO PCP - General 04/17/16 05/03/16 Dane Sullivan DO PCP - General 03/26/16 04/16/16 Dane Sullivan DO PCP - General 11/12/15 03/25/16 Deisi Andrews MD [address] [place] [address] PCP - General FAMILY PRACTICE 06/15/17 10/14/19 Asa Mcnamara MD [facility]. [facility] [address] [place] [address] [place]kov Marketing Editor CARDIOVASCULAR DISEASE 05/15/16 documented as of this encounter
--- OUTSIDE RECORDS SUMMARY | 2024-11-12 05:31 | XMS_ITS | Encounter Summary ---
Author Organization [facility] Address [address] [facility]. [place], [place] [address] [place] [address] Care Team Providers Care Advertising Rep Name Role Phone Dane Sullivan DO Primary Care Provider + [phone] Asa Mcnamara MD Unavailable +[phone] Deisi Andrews MD Primary Care Provider [phone] Heber Adorno MD Primary Care Provider Unavailable Dane Sullivan DO Primary Care Provider + [phone] Dane Sullivan DO Primary Care Provider + [phone] Dane Sullivan DO Primary Care Provider + [phone] Dane Sullivan DO Primary Care Provider + [phone] Dane Sullivan DO Primary Care Provider + [phone] Heber Adorno MD Primary Care Provider Unavailable Deisi Andrews MD Primary Care Provider [phone] Encounter Details Date Type Department Care Team (Late st Contact Info) Description 03/18/2010 Abstract [facility] [place] [address] Heber Adorno MD Social History Tobacco Use Types Packs/Day Years Used Date Smoking Tobacco: Never Assessed Comments Unknown Sex and Gender Information Value Date Recorded Sex Assigned at Female 12/06/2019 3:36 PM RESP THER Legal Sex Female 5:20 PM CDT Gender Identity Female 12/06/2019 3:36 PM RESP THER Sexual Orientation Straight 12/06/2019 3: 36 PM RESP THER documented as of this encounter Plan of Treatment Not on file documented as of this encounter Visit Diagnoses Not on filedocumented in this encounter Care Teams Advertising Rep Relationship Specialty Start Date End Date Dane Sullivan DO PCP - General FAMILY PRACTICE 05/15/16 02/11/17 Deisi Andrews MD [address] [place] [address] PCP - General FAMILY PRACTICE 02/13/17 03/10/17 [...] General 06/27/15 09/23/15 Deisi Andrews MD [address] [place] [address] PCP - General FAMILY PRACTICE 06/15/17 10/14/19 Asa Mcnamara MD [facility] [address] [place] [address] [place] Privacy Manager CARDIOVASCULAR DISEASE 05/15/16 documented as of this encounter
--- OUTSIDE RECORDS SUMMARY | 2024-11-12 05:31 | XMS_ITS | Encounter Summary ---
Author Organization [facility] Address [facility]. [place], [place] [address] [place] [address] Care Team Providers Care Agricultural And Forestry Supervisor Name Role Phone Dane Sullivan DO Primary Care Provider + [phone] Asa Mcnamara MD Unavailable [phone] Deisi Andrews MD Primary Care Provider [phone] Md Generic Vivi HUYNH Primary Care Provider Unavailable Dane Sullivan DO Primary Care Provider + [phone] Dane Sullivan DO Primary Care Provider + [phone] Dane Sullivan DO Primary Care Provider + [phone] Dane Sullivan DO Primary Care Provider + [phone] Deisi Andrews MD Primary Care Provider [phone] Encounter Details Date Type Department Care Team (Latest Contact Info) Description 11/27/2015 Abstract [facility] Social History Tobacco Use Types Packs/Day Years Used Date Smoking Tobacco: Never Assessed Comments Unknown Sex and Gender Information Value Date Recorded Sex Assigned at Female 12/06/2019 3:36 PM TUTOR COORDINATOR Legal Sex Female 5:20 PM CDT Gender Identity Female 12/06/2019 3:36 PM TUTOR COORDINATOR Sexual Orientation Straight 12/06/2019 3: 36 PM TUTOR COORDINATOR documented as of this encounter Progress Notes * Generic Conversion MD Kyree - 11/27/2015 9:05 AM CST Message Recorded as Task Date: 11/25/2015 10:49 AM, Created By: Mady Olivares Task Name: Follow Up Assigned To: [facility]-Nursing Team Regarding Patient: Rody Zaidi, Status: In Progress Comment: Mady Olivares - 25 Nov 2015 10:49 AM TASK CREATED Caller: Self; General Medical Question; Pt. called stating that she is no longer seeing Pain man. [facility] and she is wanting to know if she could get her Flexeril 10 MG 1 tab twice daily filled by you? [facility] in [place] Jennifer Wyane - 25 Nov 2015 12:49 PM TASK [...] 3:12 PM TASK REASSIGNED: Previously Assigned To [facility]-Nursing Team Left message on voicemail to call back Starr Melendez - 26 Nov 2015 3:12 PM TASK EDITED Dane Sullivan - 26 Nov 2015 3:27 PM TASK REASSIGNED: Previously Assigned To [facility]-Nursing Team disregard previous message ok to fill Starr Melnedez - 26 Nov 2015 3:29 PM TASK REASSIGNED: Previously Assigned To Starr Melendez Message: Informed pt of this, rx sent to [facility]i. /dont Plan 1. Cyclobenzaprine HCl - 10 MG Oral Tablet; TAKE 1 TABLET QD-BID PRN Rx By: Daen Sullivan; Dispense: 0 Days ; #:60 Tablet; Refill: 2; For: Chronic pain; ADAM = N; Verified Transmission to [facility]; Last Updated By: [employer]or [employer]; 11/27/2015 9:09:40 AM Signatures Electronically signed by : Starr Melendez R.N.; Nov 27 2015 9:12AM TUTOR COORDINATOR (Author) documented in this encounter Plan of Treatment Not on file documented as of this encounter Visit Diagnoses Not on filedocumented in this encounter Care Teams Agricultural And Forestry Supervisor Relationship Specialty Start Date End Date Dane Sullivan DO PCP - General FAMILY PRACTICE 05/15/16 02/11/17 Deisi Andrews MD [address] [place] [id number] PCP - General FAMILY PRACTICE 02/13/17 03/10/17 Heber Huynh MD PCP - General 03/11/17 06/14/17 Dane Sullivan DO PCP - General 05/04/16 05/14/16 Dane Sullivan DO PCP - General 04/17/16 05/03/16 Dane Sullivan DO PCP - General 03/26/16 04/16/16 Dane Sullivan DO PCP - General 11/12/15 03/25/16 Deisi Andrews MD [address] [place] [address] PCP - General FAMILY PRACTICE 06/15/17 10/14/19 Asa Mcnamara MD [address] [address] [place] Radiotelephone Operator CARDIOVASCULAR DISEASE 05/15/16 documented as of this encounter
--- OUTSIDE RECORDS SUMMARY | 2024-11-12 05:31 | XMS_ITS | Encounter Summary ---
Author Organization [facility] Address [address] [facility]. [place], [place] [address] [place] [address] Care Team Providers Care Candy Decorator Name Role Phone Dane Sullivan DO Primary Care Provider + [phone] Asa Mcnamara MD Unavailable [phone] Deisi Andrews MD Primary Care Provider [phone] Heber Adorno MD Primary Care Provider Unavailable Dane Sullivan DO Primary Care Provider + [phone] Dane Sullivan DO Primary Care Provider + [phone] Dane Sullivan DO Primary Care Provider + [phone] Deisi Andrews MD Primary Care Provider [phone] Encounter Details Date Type Department Care Team (Latest Contact Info) Description 03/31/2016 Abstract [facility] Social History Tobacco Use Types Packs/Day Years Used Date Smoking Tobacco: Never Assessed Comments Unknown Sex and Gender Information Value Date Recorded Sex Assigned at Female 12/06/2019 3:36 PM SCRAP YARD WORKER Legal Sex Female 5:20 PM CDT Gender Identity Female 12/06/2019 3:36 PM SCRAP YARD WORKER Sexual Orientation Straight 12/06/2019 3: 36 PM SCRAP YARD WORKER documented as of this encounter Plan of Treatment Not on file documented as of this encounter Visit Diagnoses Not on filedocumented in this encounter Care Teams Candy Decorator Relationship Specialty Start Date End Date Dane Sullivan DO PCP - General FAMILY PRACTICE 05/15/16 02/11/17 Deisi Andrews MD [address] [address] PCP - General FAMILY PRACTICE 02/13/17 03/10/17 Heber Adorno MD PCP - General 03/11/17 06/14/17 Dane Sullivan DO PCP - General 05/04/16 05/14/16 Dane Sullivan DO PCP - General 04/17/16 05/03/16 Dane Sullivan DO PCP - General 03/26/16 04/16/16 Deisi Andrews MD [address] [place] [address] PCP - General FAMILY PRACTICE 06/15/17 10/14/19 Asa Mcnamara MD [facility]. [facility] [address] [place] [address] [place] Sustainable Systems Analyst CARDIOVASCULAR DISEASE 05/15/16 documented as of this encounter
--- OUTSIDE RECORDS SUMMARY | 2024-11-12 05:31 | XMS_ITS | Encounter Summary ---
Author Organization [facility] Address [address] [facility]. [address] [place] [address] Care Team Providers Care Endoscopy Technican Name Role Phone Dane Sullivan DO Primary Care Provider + [phone] Asa Mcnamara MD Unavailable [phone] SullivanDane L DO Primary Care Provider + [phone] SullivanFarnazDane L DO Primary Care Provider + [phone] SullivanFarnazDane L DO Primary Care Provider + [phone] Sullivan Dane L DO Primary Care Provider + [phone] Sullivan Dane L DO Primary Care Provider + [phone] Heber Adorno MD Primary Care Provider Unavailable Encounter Details Date Type Department Care Team (Late st Contact Info) Description 03/07/2014 Abstract [facility] [address] [place] [address] Md Generic MD Vivi Social History Tobacco Use Types Packs/Day Years Used Date Smoking Tobacco: Never Assessed Comments Unknown Sex and Gender Information Value Date Recorded Sex Assigned at Female 12/06/2019 3:36 PM WELFARE VISITOR Legal Sex Female 5:20 PM CDT Gender Identity Female 12/06/2019 3:36 PM WELFARE VISITOR Sexual Orientation Straight 12/06/2019 3: 36 PM WELFARE VISITOR documented as of this encounter Plan of Treatment Not on file documented as of this encounter Visit Diagnoses Not on filedocumented in this encounter Care Teams Endoscopy Technican Relationship Specialty Start Date End Date Dane [...] - General 06/27/15 09/23/15 Asa Mcnamara MD [facility]. [facility] [address] [place] [address] [place] Finish Mixer CARDIOVASCULAR DISEASE 05/15/16 documented as of this encounter
--- OUTSIDE RECORDS SUMMARY | 2024-11-12 05:31 | XMS_ITS | Encounter Summary ---
Author Organization [facility] Address [facility]. [place], [place] [address] [place] [address] Care Team Providers Care Packing Clerk Name Role Phone Dane Sullivan DO Primary Care Provider + [phone] Asa Mcnamara MD Unavailable [phone] Deisi Andrews MD Primary Care Provider [phone] Heber Adorno MD Primary Care Provider Unavailable Dane Sullivan DO Primary Care Provider + [phone] Dane Sullivan DO Primary Care Provider + [phone] Dane Sullivan DO Primary Care Provider + [phone] Dane Sullivan DO Primary Care Provider + [phone] Deisi Andrews MD Primary Care Provider [phone] Encounter Details Date Type Department Care Team (Latest Contact Info) Description 12/17/[address] [facility] Social History Tobacco Use Types Packs/Day Years Used Date Smoking Tobacco: Never Assessed Comments Unknown Sex and Gender Information Value Date Recorded Sex Assigned at Female 12/06/2019 3:36 PM TALENT AGENT Legal Sex Female 5:20 PM CDT Gender Identity Female 12/06/2019 3:36 PM TALENT AGENT Sexual Orientation Straight 12/06/2019 3: 36 PM TALENT AGENT documented as of this encounter Plan of Treatment Not on file documented as of this encounter Visit Diagnoses Not on filedocumented in this encounter Care Teams Packing Clerk Relationship Specialty Start Date End Date Dane Sullivan DO PCP - General FAMILY PRACTICE 05/15/16 02/11/17 Deisi Andrews MD [address] [address] PCP - General FAMILY PRACTICE 02/13/17 03/10/17 Heber Adorno MD PCP - General 03/11/17 06/14/17 Dane Sullivan DO PCP - General 05/04/16 05/14/16 Dane Sullivan DO PCP - General 04/17/16 05/03/16 Dane Sullivan DO PCP - General 03/26/16 04/16/16 Dane Sullivan DO PCP - General 11/12/15 03/25/16 Deisi Andrews MD [address] [place] [address] PCP - General FAMILY PRACTICE 06/15/17 10/14/19 Asa Mcnamara MD [facility]. [facility] [address] [place] [address] [place] Fieldwork Coordinator CARDIOVASCULAR DISEASE 05/15/16 documented as of this encounter
--- OUTSIDE RECORDS SUMMARY | 2024-11-12 05:31 | XMS_ITS | Encounter Summary ---
Author Organization [facility] Address [address] [facility] [place] [address] [place] [address] Care Team Providers Care Corporate Financial Analyst Name Role Phone Dane Sullivan Primary Care Provider [phone] Encounter Details Date Type Department Care Team (Late st Contact Info) Description 04/17/2016 Abstract [facility] [address] [address] , Heber Trinidad MD Social History Tobacco Use Types Packs/Day Years Used Date Smoking Tobacco: Never Assessed Comments Unknown Sex and Gender Information Value Date Recorded Sex Assigned at Female 12/06/2019 3:36 PM PHOTOGRAPHER FINISH Legal Sex Female 5:20 PM CDT Gender Identity Female 12/06/2019 3:36 PM PHOTOGRAPHER FINISH Sexual Orientation Straight 12/06/2019 3: 36 PM PHOTOGRAPHER FINISH documented as of this encounter Plan of Treatment Not on file documented as of this encounter Procedures Procedure Name Priority Date/Time Associated Diagnosis Comments EXTERNAL EJECTION FRACTION Routine 04/17/2016 12:00 AM CDT EXTERNAL EJECTION FRACTION Routine 04/17/2016 12:00 AM CDT documented in this encounter Results * EXTERNAL EJECTION FRACTION (04/17/2016 12:00 AM CDT) EJECTION FRACTION 70-75 [facility] LAB ORDERS INTERFACE Comment: The left ventricular [...] (04/17/2016 12:00 AM CDT) EJECTION FRACTION 70-75 [facility] LAB ORDERS INTERFACE Comment: The left ventricular [...] on filedocumented in this encounter Care Teams Corporate Financial Analyst Relationship Specialty Start Date End Date Dane Sullivan DO PCP - General 04/17/16 05/03/16 documented as of this encounter
--- OUTSIDE RECORDS SUMMARY | 2024-11-12 05:31 | XMS_ITS | Encounter Summary ---
Author Organization [facility] Address [address] [facility]. [place], [place] [address] [place] [address] Care Team Providers Care Manager Oracle Retail Name Role Phone Dane Sullivan DO Primary Care Provider + [phone] Asa Mcnamara MD Unavailable [phone] Deisi Andrews MD Primary Care Provider [phone] Md Generic Vivi HUYNH Primary Care Provider Unavailable Dane Sullivan DO Primary Care Provider + [phone] Dane Sullivan DO Primary Care Provider + [phone] Dane Sullivan DO Primary Care Provider + [phone] Dane Sullivan DO Primary Care Provider + [phone] Dane Sullivan DO Primary Care Provider + [phone] Md Generic Vivi HUYNH Primary Care Provider Unavailable Deisi Andrews MD Primary Care Provider +[phone] Encounter Details Date Type Department Care Team (Latest Contact Info) Description 09/13/2015 Abstract [facility] Social History Tobacco Use Types Packs/Day Years Used Date Smoking Tobacco: Never Assessed Comments Unknown Sex and Gender Information Value Date Recorded Sex Assigned at Female 12/06/2019 3:36 PM CABINET INSTALLER Legal Sex Female 5:20 PM CDT Gender Identity Female 12/06/2019 3:36 PM CABINET INSTALLER Sexual Orientation Straight 12/06/2019 3: 36 PM CABINET INSTALLER documented as of this encounter Plan of Treatment Not on file documented as of this encounter Visit Diagnoses Not on filedocumented in this encounter Care Teams Manager Oracle Retail Relationship Specialty Start Date End Date Dane Sullivan DO PCP - General FAMILY PRACTICE 05/15/16 02/11/17 Deisi Andrews MD [address] [place] [address] PCP - General FAMILY PRACTICE 02/13/17 03/10/17 [...] General 06/27/15 09/23/15 Deisi Andrews MD [address] [place] [address] PCP - General FAMILY PRACTICE 06/15/17 10/14/19 Asa Mcnamara MD [facility]. [facility] [address] [place] [address] [place] Plant Manager CARDIOVASCULAR DISEASE 05/15/16 documented as of this encounter
--- OUTSIDE RECORDS SUMMARY | 2024-11-12 05:31 | XMS_ITS | Encounter Summary ---
Author Organization [facility] Address [address] [facility] [place] [address] [place] [address] Care Team Providers Care Full Time Name Role Phone Dane Sullivan DO Primary Care Provider + [phone] Asa Mcnamara MD Unavailable [phone] Deisi Andrews MD Primary Care Provider +[phone] Md Generic Vivi HUYNH Primary Care Provider Unavailable Dane Sullivan DO Primary Care Provider + [phone] Dane Sullivan DO Primary Care Provider + [phone] Dane Sullivan DO Primary Care Provider + [phone] Dane Sullivan DO Primary Care Provider + [phone] Dane Sullivan DO Primary Care Provider + [phone] Md Generic Vivi HUYNH Primary Care Provider Unavailable Deisi Andrews MD Primary Care Provider [phone] Encounter Details Date Type Department Care Team (Late st Contact Info) Description 06/27/2015 Abstract [facility] [place] [address] [id number] Lorelei Norton MD Three [facility] [address] [place] [address] Social History Tobacco Use Types Packs/Day Years Used Date Smoking Tobacco: Never Assessed Comments Unknown Sex and Gender Information Value Date Recorded Sex Assigned at Female 12/06/2019 3:36 PM BASEBALL CLUB MANAGER Legal Sex Female 5:20 PM CDT Gender Identity Female 12/06/2019 3:36 PM BASEBALL CLUB MANAGER Sexual Orientation Straight 12/06/2019 3: 36 PM BASEBALL CLUB MANAGER documented as of this encounter Plan of Treatment Not on file documented as of this encounter Visit Diagnoses Diagnosis Thoracic or lumbosacral neuritis or radiculitis Thoracic or lumbosacral neuritis or radiculitis, unspecified documented in this encounter Care Teams Full Time Relationship Specialty Start Date End Date Dane Sullivan DO PCP - General FAMILY PRACTICE 05/15/16 02/11/17 Deisi Andrews MD [address] [place] [address] [place] [address] PCP - General FAMILY PRACTICE 02/13/17 03/10/17 [...] - General 06/27/15 09/23/15 Deisi Andrews MD [address] [place] [address] [place] [address] PCP - General FAMILY PRACTICE 06/15/17 10/14/19 Asa Mcnamara MD [facility]. [facility] [address] [place] [address] Stephen Global Marketing Manager CARDIOVASCULAR DISEASE 05/15/16 documented as of this encounter
--- OUTSIDE RECORDS SUMMARY | 2024-11-12 05:31 | XMS_ITS | Encounter Summary ---
Author Organization [facility] Address [address] [facility]. [place], [place] [address] [place] [address] Care Team Providers Care Historic Site Administrator Name Role Phone Dane Sullivan DO Primary Care Provider + [phone] Asa Mcnamara MD Unavailable +[phone] Deisi Andrews MD Primary Care Provider [phone] Heber Adorno MD Primary Care Provider Unavailable Dane Sullivan DO Primary Care Provider + [phone] Dane Sullivan DO Primary Care Provider + [phone] Dane Sullivan DO Primary Care Provider + [phone] Dane Sullivan DO Primary Care Provider + [phone] Dane Sullivan DO Primary Care Provider + [phone] Heber Adorno MD Primary Care Provider Unavailable Deisi Andrews MD Primary Care Provider +- [phone] Neva Holden MD Primary Care Provider +[phone] Deisi Andrews MD Primary Care Provider [phone] Neva Holden MD Primary Care Provider +[phone] Encounter Details Date Type Department Care Team (Late st Contact Info) Description 01/27/2007 Abstract [facility] [address] [place] [address] Danielle Hargrove DO [address] [id number] Social History Tobacco Use Types Packs/Day Years Used Date Smoking Tobacco: Never Assessed Comments Unknown Sex and Gender Information Value Date Recorded Sex Assigned at Female 12/06/2019 3:36 PM SPACE OPERATIONS OFFICER Legal Sex Female 5:20 PM CDT Gender Identity Female 12/06/2019 3:36 PM SPACE OPERATIONS OFFICER Sexual Orientation Straight 12/06/2019 3: 36 PM SPACE OPERATIONS OFFICER COVID-19 Exposure Response Date Recorded In the last month, have you been in contact with someone who was confirmed or suspected to have Coronavirus / COVID-19? Unable to assess 06/14/2020 2:13 PM CDT documented as of this encounter Plan of Treatment Not on file documented as of this encounter Visit Diagnoses Not on filedocumented in this encounter Care Teams Historic Site Administrator Relationship Specialty Start Date End Date Dane Sullivan DO PCP - General FAMILY PRACTICE 05/15/16 02/11/17 Deisi Andrews MD [address] [place] [address] [place] [address] PCP - General FAMILY PRACTICE 02/13/17 03/10/17 [...] General 06/27/15 09/23/15 Deisi Andrews MD [address] [place] [address] PCP - General FAMILY PRACTICE 06/15/17 10/14/19 Neva Holden MD [facility] [address] [place] [address] PCP - General FAMILY PRACTICE 10/15/19 12/05/19 Deisi Andrews MD [address] [place] [address] PCP - General FAMILY PRACTICE 12/06/19 02/13/20 Neva Holden MD [facility] [address] [place] [address] PCP - General FAMILY PRACTICE 02/14/20 Asa Mcnamara MD [facility]. [address] [place] [address] Stephen Napkin Machine Operator CARDIOVASCULAR DISEASE 05/15/16 documented as of this encounter
--- OUTSIDE RECORDS SUMMARY | 2024-11-12 05:31 | XMS_ITS | Encounter Summary ---
Author Organization [facility] Address [address] [facility]. [place], [place] [address] [place] [address] Care Team Providers Care Egg Producer Name Role Phone Dane Sullivan DO Primary Care Provider + [phone] Asa Mcnamara MD Unavailable [phone] Deisi Andrews MD Primary Care Provider [phone] Md Generic Vivi HUYNH Primary Care Provider Unavailable Dane Sullivan DO Primary Care Provider + [phone] Dane Sullivan DO Primary Care Provider + [phone] Dane Sullivan DO Primary Care Provider + [phone] Dane Sullivan DO Primary Care Provider + [phone] Dane Sullivan DO Primary Care Provider + [phone] Md Generic Vivi HUYNH Primary Care Provider Unavailable Deisi Andrews MD Primary Care Provider [phone] Encounter Details Date Type Department Care Team (Latest Contact Info) Description 05/22/2015 Abstract [facility] Social History Tobacco Use Types Packs/Day Years Used Date Smoking Tobacco: Never Assessed Comments Unknown Sex and Gender Information Value Date Recorded Sex Assigned at Female 12/06/2019 3:36 PM MANAGER CULTURE Legal Sex Female 5:20 PM CDT Gender Identity Female 12/06/2019 3:36 PM MANAGER CULTURE Sexual Orientation Straight 12/06/2019 3: 36 PM MANAGER CULTURE documented as of this encounter Plan of Treatment Not on file documented as of this encounter Visit Diagnoses Not on filedocumented in this encounter Care Teams Egg Producer Relationship Specialty Start Date End Date Dane Sullivan DO PCP - General FAMILY PRACTICE 05/15/16 02/11/17 Deisi Andrews MD [address] [place] [address] PCP - General FAMILY PRACTICE 02/13/17 03/10/17 [...] General 06/27/15 09/23/15 Deisi Andrews MD [address] [address] PCP - General FAMILY PRACTICE 06/15/17 10/14/19 Asa Mcnamara MD Three [facility]. [facility] [address] [place] [address] [place] Hoop Driving Machine Operator CARDIOVASCULAR DISEASE 05/15/16 documented as of this encounter
--- OUTSIDE RECORDS SUMMARY | 2024-11-12 05:31 | XMS_ITS | Encounter Summary ---
Author Organization [facility] Address [address] [facility]. [place], [place] [address] [place] [address] Care Team Providers Care Mat Repairer Name Role Phone Dane Sullivan DO Primary Care Provider + [phone] Asa Mcnamara MD Unavailable [phone] SullivanDane L DO Primary Care Provider + [phone] SullivanFarnazDane L DO Primary Care Provider + [phone] SullivanFarnazDane L DO Primary Care Provider + [phone] Sullivan Dane L DO Primary Care Provider + [phone] Sullivan Dane L DO Primary Care Provider + [phone] Heber Adorno MD Primary Care Provider Unavailable Encounter Details Date Type Department Care Team (Late st Contact Info) Description 03/07/2014 [facility] [address] [place] [address] Md Generic MD Vivi Social History Tobacco Use Types Packs/Day Years Used Date Smoking Tobacco: Never Assessed Comments Unknown Sex and Gender Information Value Date Recorded Sex Assigned at Female 12/06/2019 3:36 PM TOXICS PROGRAM OFFICER Legal Sex Female 5:20 PM CDT Gender Identity Female 12/06/2019 3:36 PM TOXICS PROGRAM OFFICER Sexual Orientation Straight 12/06/2019 3: 36 PM TOXICS PROGRAM OFFICER documented as of this encounter Plan of Treatment Not on file documented as of this encounter Visit Diagnoses Not on filedocumented in this encounter Care Teams Mat Repairer Relationship Specialty Start Date End Date [...] - General 06/27/15 09/23/15 Asa Mcnamara MD [facility]. [facility] [address] [place] [address] [place] Audio Technician CARDIOVASCULAR DISEASE 05/15/16 documented as of this encounter
--- OUTSIDE RECORDS SUMMARY | 2024-11-12 05:31 | XMS_ITS | Encounter Summary ---
Author Organization [facility] Address [address] [facility]. [place], [place] [address] [place] [address] Care Team Providers Care Resort Desk Clerk Name Role Phone Dane Sullivan DO Primary Care Provider + [phone] Asa Mcnamara MD Unavailable +[phone] Deisi Andrews MD Primary Care Provider [phone] Heber Adorno MD Primary Care Provider Unavailable Dane Sullivan DO Primary Care Provider + [phone] Dane Sullivan DO Primary Care Provider + [phone] Dane Sullivan DO Primary Care Provider + [phone] Deisi Andrews MD Primary Care Provider [phone] Encounter Details Date Type Department Care Team (Latest Contact Info) Description 04/15/2016 Abstract [facility] Social History Tobacco Use Types Packs/Day Years Used Date Smoking Tobacco: Never Assessed Comments Unknown Sex and Gender Information Value Date Recorded Sex Assigned at Female 12/06/2019 3:36 PM FILLING 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 Legal Sex Female 5:20 PM CDT Gender Identity Female 12/06/2019 3:36 PM FILLING 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 Sexual Orientation Straight 12/06/2019 3: 36 PM FILLING 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 documented as of this encounter Plan of Treatment Not on file documented as of this encounter Visit Diagnoses Not on filedocumented in this encounter Care Teams Resort Desk Clerk Relationship Specialty Start Date End Date Dane Sullivan DO PCP - General FAMILY PRACTICE 05/15/16 02/11/17 Deisi Andrews MD [address] [place] [address] PCP - General FAMILY PRACTICE 02/13/17 03/10/17 Heber Adorno MD PCP - General 03/11/17 06/14/17 Dane Sullivan DO PCP - General 05/04/16 05/14/16 Dane Sullivan DO PCP - General 04/17/16 05/03/16 Dane Sullivan DO PCP - General 03/26/16 04/16/16 Deisi Andrews MD [address] [place] [address] PCP - General FAMILY PRACTICE 06/15/17 10/14/19 Asa Mcnamara MD [facility]. [address] [place] [address] Lynn Binder And Box Builder CARDIOVASCULAR DISEASE 05/15/16 documented as of this encounter
--- OUTSIDE RECORDS SUMMARY | 2024-11-12 05:31 | XMS_ITS | Encounter Summary ---
Author Organization [facility] Address [address] [facility]. [place], [place] [address] [place] [address] Care Team Providers Care Restaurant Managing Partner Name Role Phone Dane Sullivan DO Primary Care Provider + [phone] Asa Mcnamara MD Unavailable +[phone] Deisi Anrdews MD Primary Care Provider [phone] Heber Adorno MD Primary Care Provider Unavailable Dane Sullivan DO Primary Care Provider + [phone] Dane Sullivan DO Primary Care Provider + [phone] Dane Sullivan DO Primary Care Provider + [phone] Deisi Andrews MD Primary Care Provider [phone] Encounter Details Date Type Department Care Team (Latest Contact Info) Description 03/30/2016 Abstract [facility] Medical Group Social History Tobacco Use Types Packs/Day Years Used Date Smoking Tobacco: Never Assessed Comments Unknown Sex and Gender Information Value Date Recorded Sex Assigned at Female 12/06/2019 3:36 PM PATTERNMAKER Legal Sex Female 5:20 PM CDT Gender Identity Female 12/06/2019 3:36 PM PATTERNMAKER Sexual Orientation Straight 12/06/2019 3: 36 PM PATTERNMAKER documented as of this encounter Plan of Treatment Not on file documented as of this encounter Visit Diagnoses Not on filedocumented in this encounter Care Teams Restaurant Managing Partner Relationship Specialty Start Date End Date Dane Sullivan DO PCP - General FAMILY PRACTICE 05/15/16 02/11/17 Deisi Andrews MD [address] [place] [address] PCP - General FAMILY PRACTICE 02/13/17 03/10/17 Heber Adorno MD PCP - General 03/11/17 06/14/17 Dane Sullivan DO PCP - General 05/04/16 05/14/16 Dane Sullivan DO PCP - General 04/17/16 05/03/16 Dane Sullivan DO PCP - General 03/26/16 04/16/16 Deisi Andrews MD [address] [place] [address] PCP - General FAMILY PRACTICE 06/15/17 10/14/19 Asa Mcnamara MD [facility]. [address] [place] [address] [place] Back Tender Cylinder CARDIOVASCULAR DISEASE 05/15/16 documented as of this encounter
--- OUTSIDE RECORDS SUMMARY | 2024-11-12 05:31 | XMS_ITS | Encounter Summary ---
Author Organization [facility] Address [address] [facility] [place] [address] [place] [address] Care Team Providers Care Cake Stripper Name Role Phone Dane Sullivan DO Primary Care Provider + [phone] Asa Mcnamara MD Unavailable [phone] Deisi Andrews MD Primary Care Provider [phone] Heber Adorno MD Primary Care Provider Unavailable Dane Sullivan DO Primary Care Provider + [phone] Dane Sullivan DO Primary Care Provider + [phone] Dane Sullivan DO Primary Care Provider + [phone] Dane Sullivan DO Primary Care Provider + [phone] Deisi Andrews MD Primary Care Provider [phone] Encounter Details Date Type Department Care Team (Late st Contact Info) Description 11/12/2015 Abstract [facility] Medical Group Family Medicine - [address] [address] Dane Sullivan DO [address] [phone] Social History Tobacco Use Types Packs/Day Years Used Date Smoking Tobacco: Never Assessed Comments Unknown Sex and Gender Information Value Date Recorded Sex Assigned at Female 12/06/2019 3:36 PM FUNERAL PLANNING COUNSELOR Legal Sex Female 5:20 PM CDT Gender Identity Female 12/06/2019 3:36 PM FUNERAL PLANNING COUNSELOR Sexual Orientation Straight 12/06/2019 3: 36 PM FUNERAL PLANNING COUNSELOR documented as of this encounter Last Filed Vital Signs Vital Sign Reading Time Taken Comments Blood Pressure 140/90 11/12/2015 10:04 AM FUNERAL PLANNING COUNSELOR Pulse 94 11/12/2015 10:04 AM FUNERAL PLANNING COUNSELOR Temperature - - Respiratory Rate - - Oxygen Saturation - - Inhaled Oxygen Concentration - - Weight 100.7 kg (222 lb) 11/12/2015 10:04 AM FUNERAL PLANNING COUNSELOR Height - - Body Mass Index 40.6 09/24/2015 1:13 PM FUNERAL PLANNING COUNSELOR documented in this encounter Progress Notes * Dane Sullivan, DO - 11/12/2015 10:00 AM CST History of Present Illness HPI Free Text: On Nov 06, had c/o silva flank pain went to ER, CT showed strandings pain did not go away until morphine and dilaudid Pt has a f/u appt with pump house engineer in [place], will be seeing Dr Pandey symptoms have [...] (F17.200) Current Meds 1. Ativan TABS; Therapy: (Recorded:[id number]) to Recorded Allergies 1. Halcion 2. Haldol 3. Penicillins 4. Risperidone and Related Immunizations Influenza --- Series1: [id number] Vitals Recorded: [id number] 10:04AM Heart Rate 94 Respiration 18 Systolic 140 Diastolic 90 Weight 222 lb BMI Calculated 40.6 BSA Calculated 2 Assessment 1. Hypertension (401.9) (I10) 2. Hyperlipidemia (272.4) (E78.5) 3. Diabetes mellitus, type 2 (250.00) (E11.9) 4. Flank pain (789.09) (R10.9) 5. Cough (786.2) (R05) Plan Hyperlipidemia 1. ALT ( SGPT ); Status:Hold For - Manual Activation; Requested for:[id number]; Perform:[facility]; Due:12Dec2015;Ordered; For:Hyperlipidemia; Ordered By:Dane Sullivan; 2. AST ( SGOT ); Status:Hold For - Manual Activation; Requested for:[id number]; Perform:[facility]; Due:12Dec2015;Ordered; For:Hyperlipidemia; Ordered By:Dane Sullivan; 3. Lipid Profile; Status:Hold For - Manual Activation; Requested for:[id number]; Perform:[facility]; Due:12Dec2015;Ordered; For:Hyperlipidemia; Ordered By:Dane Sullivan; Hypertension 4. From AmLODIPine Besylate 5 MG Oral Tablet TAKE 1 TABLET DAILY DIRECTED To AmLODIPine Besylate 10 MG Oral Tablet TAKE 1 TABLET DAILY FOR BLOOD PRESSURE Rx By: Dane Sullivan; Dispense: 90 Days ; #:90 Tablet; Refill: 1; For: Hypertension; ADAM = N; Sent To: [facility] URTI (acute upper respiratory [...] respiratory infection); ADAM = N; Sent To: [facility]; Last Updated By: Jennifer Wayne; [...] Dane Sullivan D.O.; Nov 12 2015 10:19AM FUNERAL PLANNING COUNSELOR (Author) documented in this encounter Plan of Treatment Not on file documented as of this encounter Procedures Procedure Name Priority Date/Time Associated Diagnosis Comments AST/SGOT Routine 11/12/2015 10:21 AM FUNERAL PLANNING COUNSELOR LIPID PANEL Routine 11/12/2015 10:21 AM FUNERAL PLANNING COUNSELOR ALT/SGPT Routine 11/12/2015 10:21 AM FUNERAL PLANNING COUNSELOR documented in this encounter Results * (ABNORMAL) LIPID PANEL (11/12/2015 10:21 AM FUNERAL PLANNING COUNSELOR) CHOLESTEROL 204(H) <200 mg/dL [facility] TO EPIC [...] TO EPIC CONVERSION 11/12/2015 10:2 1 AM FUNERAL PLANNING COUNSELOR 11/12/2015 10:21 AM FUNERAL PLANNING COUNSELOR Narrative [facility] TO EPIC CONVERSION - 11/12/2015 7:42 PM FUNERAL PLANNING COUNSELOR Result Communication: Mail Results to Patient Dane Sullivan DO LABORATORY Final Result Performing Organization Address [facility] de Phone Number [facility] TO EPIC CONVERSION * ALT/SGPT (11/12/2015 10:21 AM FUNERAL PLANNING COUNSELOR) ALT 16 0 - 33 IU/L [facility] TO EPIC CONVERSION 11/12/2015 10:2 1 AM FUNERAL PLANNING COUNSELOR 11/12/2015 10:21 AM FUNERAL PLANNING COUNSELOR Narrative [facility] TO EPIC CONVERSION - 11/12/2015 7:42 PM FUNERAL PLANNING COUNSELOR Result Communication: Mail Results to Patient Dane Sullivan DO LABORATORY Final Result Performing Organization Address [facility] de Phone Number [facility] TO EPIC CONVERSION * AST/SGOT (11/12/2015 10:21 AM FUNERAL PLANNING COUNSELOR) AST 12 0 - 32 IU/L [facility] TO EPIC CONVERSION 11/12/2015 10:2 1 AM FUNERAL PLANNING COUNSELOR 11/12/2015 10:21 AM FUNERAL PLANNING COUNSELOR Narrative [facility] TO EPIC CONVERSION - 11/12/2015 7:42 PM FUNERAL PLANNING COUNSELOR Result Communication: Mail Results to Patient Dane Sullivan DO LABORATORY Final Result [facility] TO EPIC CONVERSION documented in this encounter Visit Diagnoses Not on filedocumented in this encounter Care Teams Cake Stripper Relationship Specialty Start Date End Date Dane Sullivan DO PCP - General FAMILY PRACTICE 05/15/16 02/11/17 Deisi Andrews MD [address] [place] [address] PCP - General FAMILY PRACTICE 02/13/17 03/10/17 Heber Adorno MD PCP - General 03/11/17 06/14/17 Dane Sullivan DO PCP - General 05/04/16 05/14/16 Dane Sullivan DO PCP - General 04/17/16 05/03/16 Dane Sullivan DO PCP - General 03/26/16 04/16/16 Dane Sulilvan DO PCP - General 11/12/15 03/25/16 Deisi Andrews MD [address] [place] [address] PCP - General FAMILY PRACTICE 06/15/17 10/14/19 Asa Mcnamara MD [address] [address] [place] Outreach Team Member CARDIOVASCULAR DISEASE 05/15/16 documented as of this encounter
--- OUTSIDE RECORDS SUMMARY | 2024-11-12 05:31 | XMS_ITS | Encounter Summary ---
Author Organization [facility] Address [address] [facility] [place] [address] [place] [address] Care Team Providers Care Evaluation Manager Name Role Phone Dane Sullivan DO Primary Care Provider + [phone] Asa Mcnamara MD Unavailable +[phone] Deisi Andrews MD Primary Care Provider [phone] Heber Adorno MD Primary Care Provider Unavailable Dane Sullivan DO Primary Care Provider + [phone] Dane Sullivan DO Primary Care Provider + [phone] Dane Sullivan DO Primary Care Provider + [phone] Dane Sullivan DO Primary Care Provider + [phone] Dane Sullivan DO Primary Care Provider + [phone] Deisi Andrews MD Primary Care Provider [phone] Encounter Details Date Type Department Care Team (Late st Contact Info) Description 09/24/2015 Abstract [facility] Family Medicine - [address] [phone] Dane Sullivan DO [address] [phone] Social History Tobacco Use Types Packs/Day Years Used Date Smoking Tobacco: Never Assessed Comments Unknown Sex and Gender Information Value Date Recorded Sex Assigned at Female 12/06/2019 3:36 PM CHICKEN TENDER Legal Sex Female 5:20 PM CDT Gender Identity Female 12/06/2019 3:36 PM CHICKEN TENDER Sexual Orientation Straight 12/06/2019 3: 36 PM CHICKEN TENDER documented as of this encounter Last Filed Vital Signs Vital Sign Reading Time Taken Comments Blood Pressure 139/87 09/24/2015 1:13 PM CHICKEN TENDER Pulse 93 09/24/2015 1:13 PM CHICKEN TENDER Temperature - - Respiratory Rate - - Oxygen Saturation - - Inhaled Oxygen Concentration - - Weight 96.2 kg (212 lb) 09/24/2015 1:13 PM CHICKEN TENDER Height 157.5 cm (5' 2 ) 09/24/2015 1:13 PM CHICKEN TENDER Body Mass Index 38.78 09/24/2015 1:13 PM CHICKEN TENDER documented in this encounter Progress Notes * [...] 1 TABLET TID NEEDED FOR PAIN; Last Rx:[id number] Ordered 5. Ibuprofen 600 MG Oral Tablet; Therapy: 07Cuv3111 to Recorded 6. Levofloxacin 500 MG Oral Tablet; Therapy: 80Qtt5716 to Recorded 7. Losartan Potassium 100 MG Oral Tablet; TAKE 1 TABLET DAILY Requested for: 12Aug2015; Last Rx:[id number] Ordered 8. MetFORMIN HCl - 500 MG Oral Tablet; TAKE 1 TABLET TWICE DAILY WITH MEALS Requested for: 78Cwb9312; Last Rx:[id number] Ordered 9. Montelukast Sodium 10 MG Oral Tablet; TAKE 1 TABLET DAILY Requested for: 12Aug2015; Last Rx:[id number] Ordered 10. Euzwmarh-Pkwcgabut-LM 3.5-88066-8 Otic Suspension; Therapy: 21May2015 to Recorded 11. Nicotine 21-14-7 MG/24HR Transdermal Kit; USE DIRECTED; Therapy: 28Sbn8815 to (Last Rx:10Kip2036) Requested for: 37Cps0159 Ordered 12. Pravastatin Sodium 40 MG Oral Tablet; Take 1 tablet daily; Therapy: 73Lah2846 to (Last Rx:15Aqe4043) Requested for: 77Lsa7962 Ordered 13. PriLOSEC 20 MG Oral Capsule Delayed Release; Therapy: (Recorded:22Apr2015) to Recorded 14. PROzac 40 MG Oral Capsule; Therapy: (Recorded:22Apr2015) to Recorded 15. Qvar 40 MCG/ACT Inhalation Aerosol Solution; INHALE 1 PUFF TWICE DAILY Requested for: 50Tze8996; Last Rx:91Uxk4422 Ordered 16. Ventolin HFA 108 (90 Base) MCG/ACT Inhalation Aerosol Solution; INHALE 2 PUFFS EVERY 4 TO 6 HOURS NEEDED; Therapy: 87Jwf9253 to (Last Rx:34Rgf3863) Requested for: 08Hvl8182 Ordered 17. Wellbutrin XL 150 MG Oral [...] In Office; Status:Active; Requested for:24Sep2015; Perform:In Office; Due:54Upc2938;Ordered; For:Hyperlipidemia; Ordered By:Dane Sullivan; 2. Compr Metabolic Prof ( CMP ); Status:Hold For - Manual Activation; Requested for:24Sep2015; Perform:[facility]; Due:47Uvk3121;Ordered; For:Hyperlipidemia; Ordered By:Dane Sullivan; 3. Lipid Profile; Status:Hold For - Manual Activation; Requested for:24Sep2015; Perform:[facility]; Due:89Vna0130;Ordered; For:Hyperlipidemia; Ordered By:Dane Sullivan; 4. TSH W Reflex Free T4; Status:Hold For - Manual Activation; Requested for:24Sep2015; Perform:[facility]; Due:60Zgf0117;Ordered; For:Hyperlipidemia; Ordered By:Dane Sullivan; URTI (acute upper respiratory infection) 5. Benzonatate 200 MG Oral Capsule; TAKE 1 CAPSULE 3 TIMES DAILY NEEDED Rx By: Dane Sullivan; Dispense: 10 Days ; #:30 Capsule; Refill: 0; For: URTI (acute upper respiratory infection); ADAM = N; Sent To: [facility] 6. Clindamycin HCl - 300 MG Oral Capsule; TAKE 1 CAPSULE EVERY 6 HOURS DAILY Rx By: Dane Sullivan; Dispense: 7 Days ; #:28 Capsule; Refill: 0; For: URTI (acute upper respiratory infection); ADAM = N; [email or web address] 7. *Urine Dip Siemens Machine Read Strip In Office; Status:Hold For - Specimen/Data Collection; Requested for:24Sep2015; Perform:In Office; Due:84Cqg7698;Ordered; For:URTI (acute upper respiratory infection); Ordered By:Dane Sullivan; 8. Urine Microalb / Creat Ratio; Status:Hold For - Manual Activation; Requested for:24Sep2015; Perform:[facility]; Due:91Hff6129;Ordered; For:URTI (acute upper respiratory infection); Ordered By:Dane [...] Dane Sullivan D.O.; Sep 24 2015 1:43PM CHICKEN TENDER (Author) * Dane Sullivan DO - 09/24/2015 [...] Glucose Negative Bilirubin Negative Ketones Negative Specific [place] 1.015 Blood Negative pH 6.0 Protein Trace [...] FRACTIONATION. mg/dL Lipid Profile Comment 1 (Report) [facility] REPORT RECOMMENDATIONS: ADULT CHILD [...] Diagnosis Comments URINALYSIS Routine 09/24/2015 2:20 PM CHICKEN TENDER HEMOGLOBIN, GLYCOSYLATED Routine 09/24/2015 2:19 PM CHICKEN TENDER MICROALBUMIN CREATININE RATIO Routine 09/24/2015 1:45 PM CHICKEN TENDER TSH W/REFLEX Routine 09/24/2015 1:45 PM CHICKEN TENDER COMPREHENSIVE METABOLIC PANEL Routine 09/24/2015 1:45 PM CHICKEN TENDER LIPID PANEL Routine 09/24/2015 1:45 PM CHICKEN TENDER documented in this encounter Results * URINALYSIS (09/24/2015 2:20 PM CHICKEN TENDER) Pathologist [facility] EPI/HPF Rare Rare, Few [facility] T O [...] P TO EPIC CONVERSION 09/24/2015 2:20 PM CHICKEN TENDER 09/24/2015 2:20 PM CHICKEN TENDER Narrative [facility] TO EPIC CONVERSION - 09/24/2015 2:20 PM CHICKEN TENDER Result Communication: Call patient with results us Dane Sullivan DO URINE ORDERABLES Final Resul t [facility] TO EPIC CONVERSION * HEMOGLOBIN, GLYCOSYLATED (09/24/2015 2:19 PM CHICKEN TENDER) Pathologist [facility] HGB A1C 6.0 4.2% - 6.5% [facility] TO EPIC CONVERSION 09/24/2015 2:19 PM CHICKEN TENDER 09/24/2015 2:19 PM CHICKEN TENDER Narrative [facility] TO EPIC CONVERSION - 09/24/2015 2:19 PM CHICKEN TENDER Result Communication: Call patient with results us Dane Sullivan DO LABORATORY Final Result [facility] TO EPIC CONVERSION * TSH W/REFLEX (SNS) (09/24/2015 1:45 PM CHICKEN TENDER) TSH 0.30 0.27 - 4.20 mIU/mL [facility] TO EPIC CONVERSION Comment:Result Comment: FREE T4 NOT INDICATED 09/24/2015 1:45 PM CHICKEN TENDER 09/24/2015 1:45 PM CHICKEN TENDER Narrative [facility] TO EPIC CONVERSION - 09/24/2015 9:47 PM CHICKEN TENDER Result Communication: Call patient with results Dane Sullivan DO LABORATORY Final Result [facility] TO EPIC CONVERSION * (ABNORMAL) LIPID PANEL (09/24/2015 1:45 PM CHICKEN TENDER) CHOLESTEROL 224(H) <200 mg/dL [facility] TO EPIC [...] [facility] TO EPIC CONVERSION 09/24/2015 1:45 PM CHICKEN TENDER 09/24/2015 1:45 PM CHICKEN TENDER Narrative [facility] TO EPIC CONVERSION - 09/24/2015 9:47 PM CHICKEN TENDER Result Communication: Call patient with results us Dane Sullivan DO LABORATORY Final Result [facility] TO EPIC CONVERSION * (ABNORMAL) COMPREHENSIVE METABOLIC PANEL (09/24/2015 1:45 PM CHICKEN TENDER) SODIUM S/P/B 142 136 - 145 mmol/L [...] [facility] TO EPIC CONVERSION 09/24/2015 1:45 PM CHICKEN TENDER 09/24/2015 1:45 PM CHICKEN TENDER Narrative [facility] TO EPIC CONVERSION - 09/24/2015 9:47 PM CHICKEN TENDER Result Communication: Call patient with results us Dane Sullivan DO LABORATORY Final Result [facility] TO EPIC CONVERSION * (ABNORMAL) MICROALBUMIN CREATININE RATIO (09/24/2015 1:45 PM CHICKEN TENDER) CREATININE (U) 125 28 - 217 mg/dL [facility] TO EPIC CONVERSION MICROALBUMIN (U) 7.9(H) <2.0 mg/dL [facility] TO EPIC CONVERSION ALBUMIN/CREAT RATIO 63.2(H) <30 MG/G [facility] TO EPIC CONVERSION 09/24/2015 1:45 PM CHICKEN TENDER 09/24/2015 1:45 PM CHICKEN TENDER Narrative [facility] TO EPIC CONVERSION - 09/24/2015 9:34 PM CHICKEN TENDER Result Communication: Call patient with results us Dane Sullivan DO LABORATORY Final Result [facility] TO EPIC CONVERSION documented in this encounter Visit Diagnoses Not on filedocumented in this encounter Care Teams Evaluation Manager Relationship Specialty Start Date End Date Dane Sullivan DO PCP - General FAMILY PRACTICE 05/15/16 02/11/17 Deisi Andrews MD [address] [place] [address] PCP - General FAMILY PRACTICE 02/13/17 03/10/17 , Generic MD Vivi PCP - General 03/11/17 06/14/17 Dane Sullivan DO PCP - General 05/04/16 05/14/16 Dane Sullivan DO PCP - General 04/17/16 05/03/16 Dane Sullivan DO PCP - General 03/26/16 04/16/16 Dane Sullivan DO PCP - General 11/12/15 03/25/16 Dane Sullivan DO PCP - General 09/24/15 11/11/15 Deisi Andrews MD [address] [place] [address] [place] [address] PCP - General FAMILY PRACTICE 06/15/17 10/14/19 Asa Mcnamara MD [facility]. [address] [place] [address] Stephen Pot Tender CARDIOVASCULAR DISEASE 05/15/16 documented as of this encounter
--- OUTSIDE RECORDS SUMMARY | 2024-11-12 05:31 | XMS_ITS | Encounter Summary ---
Author Organization [facility] Address [address] [facility]. [place], [place] [address] [place] [address] Care Team Providers Care Director Of Emergency Nursing Name Role Phone Dane Sullivan DO Primary Care Provider + [phone] Asa Mcnamara MD Unavailable [phone] Deisi Andrews MD Primary Care Provider [phone] Heber Adorno MD Primary Care Provider Unavailable Dane Sullivan DO Primary Care Provider + [phone] Dane Sullivan DO Primary Care Provider + [phone] Dane Sullivan DO Primary Care Provider + [phone] Dane Sullivan DO Primary Care Provider + [phone] Dane Sullivan DO Primary Care Provider + [phone] Heber Adorno MD Primary Care Provider Unavailable Deisi Andrews MD Primary Care Provider [phone] Neva Holden MD Primary Care Provider +[phone] Deisi Andrews MD Primary Care Provider [phone] Neva Holden MD Primary Care Provider [phone] Encounter Details Date Type Department Care Team (Late st Contact Info) Description 10/11/2006 Abstract [facility] Emergency Services [address] [place] [address] [place], [place] [id number] Heber Adorno MD Social History Tobacco Use Types Packs/Day Years Used Date Smoking Tobacco: Never Assessed Comments Unknown Sex and Gender Information Value Date Recorded Sex Assigned at Female 12/06/2019 3:36 PM AREA DIRECTOR Legal Sex Female 5:20 PM CDT Gender Identity Female 12/06/2019 3:36 PM AREA DIRECTOR Sexual Orientation Straight 12/06/2019 3: 36 PM AREA DIRECTOR COVID-19 Exposure Response Date Recorded In the last month, have you been in contact with someone who was confirmed or suspected to have Coronavirus / COVID-19? Unable to assess 06/14/2020 2:13 PM CDT documented as of this encounter Plan of Treatment Not on file documented as of this encounter Visit Diagnoses Not on filedocumented in this encounter Care Teams Director Of Emergency Nursing Relationship Specialty Start Date End Date Dane Sullivan DO PCP - General FAMILY PRACTICE 05/15/16 02/11/17 Deisi Andrews MD [address] [place] [address] [place] [address] PCP - General FAMILY PRACTICE 02/13/17 03/10/17 [...] General 06/27/15 09/23/15 Deisi Andrews MD [address] [place] [address] PCP - General FAMILY PRACTICE 06/15/17 10/14/19 Neva Holden MD [facility] [address] [place] [address] PCP - General FAMILY PRACTICE 10/15/19 12/05/19 Deisi Andrews MD [address] [place] [address] PCP - General FAMILY PRACTICE 12/06/19 02/13/20 Neva Holden MD . [place] [facility] [address] [place] [address] PCP - General FAMILY PRACTICE 02/14/20 Asa Mcnamara MD [facility]. [address] [place] [address] [place] Environmental Field Services Technician CARDIOVASCULAR DISEASE 05/15/16 documented as of this encounter
--- OUTSIDE RECORDS SUMMARY | 2024-11-12 05:31 | XMS_ITS | Encounter Summary ---
Author Organization [facility] Address [address] [facility]. [place], [place] [address] [place] [address] Care Team Providers Care Color Developer Name Role Phone Daen Sullivan DO Primary Care Provider + [phone] Asa Mcnamara MD Unavailable [phone] Deisi Andrews MD Primary Care Provider [phone] Heber Adorno MD Primary Care Provider Unavailable Dane Sullivan DO Primary Care Provider + [phone] Dane Sullivan DO Primary Care Provider + [phone] Dane Sullivan DO Primary Care Provider + [phone] Dane Sullivan DO Primary Care Provider + [phone] Dane Sullivan DO Primary Care Provider + [phone] Heber Adorno MD Primary Care Provider Unavailable Deisi Andrews MD Primary Care Provider [phone] Neva Holden MD Primary Care Provider +[phone] Deisi Andrews MD Primary Care Provider +[phone] Neva Holden MD Primary Care Provider +[phone] Encounter Details Date Type Department Care Team (Late st Contact Info) Description 01/03/2008 Abstract [facility] Therapy [address] [place] [address] Heber Adorno MD Social History Tobacco Use Types Packs/Day Years Used Date Smoking Tobacco: Never Assessed Comments Unknown Sex and Gender Information Value Date Recorded Sex Assigned at Female 12/06/2019 3:36 PM CONSTRUCTION HELPER Legal Sex Female 5:20 PM CDT Gender Identity Female 12/06/2019 3:36 PM CONSTRUCTION HELPER Sexual Orientation Straight 12/06/2019 3: 36 PM CONSTRUCTION HELPER COVID-19 Exposure Response Date Recorded In the last month, have you been in contact with someone who was confirmed or suspected to have Coronavirus / COVID-19? Unable to assess 06/14/2020 2:13 PM CDT documented as of this encounter Plan of Treatment Not on file documented as of this encounter Visit Diagnoses Not on filedocumented in this encounter Care Teams Color Developer Relationship Specialty Start Date End Date Dane Sullivan DO PCP - General FAMILY PRACTICE 05/15/16 02/11/17 Deisi Andrews MD [address] [place] [address] [place] [address] PCP - General FAMILY PRACTICE 02/13/17 03/10/17 [...] General 06/27/15 09/23/15 Deisi Andrews MD [address] [place] [address] PCP - General FAMILY PRACTICE 06/15/17 10/14/19 Neva Holden MD [facility] [address] [place] [address] PCP - General FAMILY PRACTICE 10/15/19 12/05/19 Deisi Andrews MD [address] [place] [address] PCP - General FAMILY PRACTICE 12/06/19 02/13/20 Neva Holden MD . [place] [facility] [address] [place] [address] PCP - General FAMILY PRACTICE 02/14/20 Asa Mcnamara MD [facility]. [address] [place] [address] [place] Oncology Physician CARDIOVASCULAR DISEASE 05/15/16 documented as of this encounter
--- OUTSIDE RECORDS SUMMARY | 2024-11-12 05:31 | XMS_ITS | Encounter Summary ---
Author Organization [facility] Address [address] [facility]. [place], [place] [address] [place] [address] Care Team Providers Care Sedimentationist Name Role Phone Dane Sullivan DO Primary Care Provider + [phone] Dane Sullivan DO Primary Care Provider + [phone] Encounter Details Date Type Department Care Team (Late st Contact Info) Description 04/08/2016 [facility] [address] [place] [address] , Heber Trinidad MD Social History Tobacco Use Types Packs/Day Years Used Date Smoking Tobacco: Never Assessed Comments Unknown Sex and Gender Information Value Date Recorded Sex Assigned at Female 12/06/2019 3:36 PM PLASTICS SHEET FINISHING PRESS OPERATOR Legal Sex Female 5:20 PM CDT Gender Identity Female 12/06/2019 3:36 PM PLASTICS SHEET FINISHING PRESS OPERATOR Sexual Orientation Straight 12/06/2019 3: 36 PM PLASTICS SHEET FINISHING PRESS OPERATOR documented as of this encounter Plan of Treatment Not on file documented as of this encounter Visit Diagnoses Not on filedocumented in this encounter Care Teams Sedimentationist Relationship Specialty Start Date End Date Dane Sullivan DO PCP - General 04/17/16 05/03/16 Dane Sullivan DO PCP - General 03/26/16 04/16/16 documented as of this encounter
--- OUTSIDE RECORDS SUMMARY | 2024-11-12 05:31 | XMS_ITS | Encounter Summary ---
Author Organization [facility] Address [address] [facility]. [place], [place] [address] [place] [address] Care Team Providers Care Medical Legal Investigator Name Role Phone Dane Sullivan DO Primary Care Provider + [phone] Asa Mcnamara MD Unavailable [phone] Deisi Andrews MD Primary Care Provider [phone] Md Generic Vivi HUYNH Primary Care Provider Unavailable Dane Sullivan DO Primary Care Provider + [phone] Dane Sullivan DO Primary Care Provider + [phone] Dane Sullivan DO Primary Care Provider + [phone] Dane Sullivan DO Primary Care Provider + [phone] Dane Sullivan DO Primary Care Provider + [phone] Md Generic Vivi HUYNH Primary Care Provider Unavailable Deisi Andrews MD Primary Care Provider [phone] Encounter Details Date Type Department Care Team (Latest Contact Info) Description 07/26/2015 Abstract [facility] Social History Tobacco Use Types Packs/Day Years Used Date Smoking Tobacco: Never Assessed Comments Unknown Sex and Gender Information Value Date Recorded Sex Assigned at Female 12/06/2019 3:36 PM TITLE ONE KINDERGARTEN TEACHER Legal Sex Female 5:20 PM CDT Gender Identity Female 12/06/2019 3:36 PM TITLE ONE KINDERGARTEN TEACHER Sexual Orientation Straight 12/06/2019 3: 36 PM TITLE ONE KINDERGARTEN TEACHER documented as of this encounter Plan of Treatment Not on file documented as of this encounter Visit Diagnoses Not on filedocumented in this encounter Care Teams Medical Legal Investigator Relationship Specialty Start Date End Date Dane Sullivan DO PCP - General FAMILY PRACTICE 05/15/16 02/11/17 Deisi Andrews MD [address] [place] [address] PCP - General FAMILY PRACTICE 02/13/17 03/10/17 [...] General 06/27/15 09/23/15 Diesi Andrews MD [address] [place] [address] PCP - General FAMILY PRACTICE 06/15/17 10/14/19 Asa Mcnamara MD [facility]. [facility] [address] [place] [address] [place] Telephone Information Supervisor CARDIOVASCULAR DISEASE 05/15/16 documented as of this encounter
--- OUTSIDE RECORDS SUMMARY | 2024-11-12 05:31 | XMS_ITS | Encounter Summary ---
Author Organization [facility] Address [address] [facility]. [place], [place] [address] [place] [address] Care Team Providers Care Repairer Controller Tester Name Role Phone Dane Sullivan DO Primary Care Provider + [phone] Asa Mcnamara MD Unavailable [phone] Deisi Andrews MD Primary Care Provider [phone] Heber Adorno MD Primary Care Provider Unavailable Dane Sullivan DO Primary Care Provider + [phone] Dane Sullivan DO Primary Care Provider + [phone] Dane Sullivan DO Primary Care Provider + [phone] Dane Sullivan DO Primary Care Provider + [phone] Dane Sullivan DO Primary Care Provider + [phone] Heber Adorno MD Primary Care Provider Unavailable Deisi Andrews MD Primary Care Provider [phone] Encounter Details Date Type Department Care Team (Late st Contact Info) Description 12/17/[address] [place] [place] [address] Heber Adorno MD Social History Tobacco Use Types Packs/Day Years Used Date Smoking Tobacco: Never Assessed Comments Unknown Sex and Gender Information Value Date Recorded Sex Assigned at Female 12/06/2019 3:36 PM COUNTY ATTORNEY Legal Sex Female 5:20 PM CDT Gender Identity Female 12/06/2019 3:36 PM COUNTY ATTORNEY Sexual Orientation Straight 12/06/2019 3: 36 PM COUNTY ATTORNEY documented as of this encounter Plan of Treatment Not on file documented as of this encounter Visit Diagnoses Not on filedocumented in this encounter Care Teams Repairer Controller Tester Relationship Specialty Start Date End Date Dane Sullivan DO PCP - General FAMILY PRACTICE 05/15/16 02/11/17 Deisi Andrews MD [address] [place] [address] PCP - General FAMILY PRACTICE 02/13/17 03/10/17 [...] - General 06/27/15 09/23/15 Deisi Andrews MD [address] [place] [address] [place] [address] PCP - General FAMILY PRACTICE 06/15/17 10/14/19 Asa Mncamara MD [facility]. [facility] [address] [place] [address] [place] Fretted Instrument Maker Hand CARDIOVASCULAR DISEASE 05/15/16 documented as of this encounter
--- OUTSIDE RECORDS SUMMARY | 2024-11-12 05:31 | XMS_ITS | Encounter Summary ---
Author Organization [facility] Address [address] [facility]. [place], [place] [address] [place] [address] Care Team Providers Care Greenhouse Instructor Name Role Phone Dane Sullivan DO Primary Care Provider + [phone] Asa Mcnamara MD Unavailable [phone] Deisi Andrews MD Primary Care Provider [phone] Heber Adorno MD Primary Care Provider Unavailable Dane Sullivan DO Primary Care Provider + [phone] Dane Sullivan DO Primary Care Provider + [phone] Dane Sullivan DO Primary Care Provider + [phone] Dane Sullivan DO Primary Care Provider + [phone] Dane Sullivan DO Primary Care Provider + [phone] Heber Adorno MD Primary Care Provider Unavailable Deisi Andrews MD Primary Care Provider [phone] Encounter Details Date Type Department Care Team (Late st Contact Info) Description 11/13/[address] [facility] Heber Trinidad Md, MD Social History Tobacco Use Types Packs/Day Years Used Date Smoking Tobacco: Never Assessed Comments Unknown Sex and Gender Information Value Date Recorded Sex Assigned at Female 12/06/2019 3:36 PM LARD TUB WASHER Legal Sex Female 5:20 PM CDT Gender Identity Female 12/06/2019 3:36 PM LARD TUB WASHER Sexual Orientation Straight 12/06/2019 3: 36 PM LARD TUB WASHER documented as of this encounter Plan of Treatment Not on file documented as of this encounter Visit Diagnoses Not on filedocumented in this encounter Care Teams Greenhouse Instructor Relationship Specialty Start Date End Date Dane Sullivan DO PCP - General FAMILY PRACTICE 05/15/16 02/11/17 Deisi Andrews MD [address] [place] [address] PCP - General FAMILY PRACTICE 02/13/17 03/10/17 [...] General 06/27/15 09/23/15 Deisi Andrews MD [address] [place] [address] PCP - General FAMILY PRACTICE 06/15/17 10/14/19 Asa Mcnamara MD [facility] [address] [place] [address] [place] Life Teacher CARDIOVASCULAR DISEASE 05/15/16 documented as of this encounter
--- OUTSIDE RECORDS SUMMARY | 2024-11-12 05:31 | XMS_ITS | Encounter Summary ---
Author Organization [facility] Address [address] [facility] [place] [address] [place] [address] Care Team Providers Care Cook House Laborer Name Role Phone Dane Sullivan DO Primary Care Provider + [phone] Asa Mcnamara MD Unavailable +[phone] Deisi Andrews MD Primary Care Provider [phone] Md Generic Conversion Primary Care Provider Unavailable Dane Sullivan DO Primary Care Provider + [phone] Dane Sullivan DO Primary Care Provider + [phone] Dane Sullivan DO Primary Care Provider + [phone] Dane Sullivan DO Primary Care Provider + [phone] Dane Sullivan DO Primary Care Provider + [phone] Md Generic Vivi HUYNH Primary Care Provider Unavailable Deisi Andrews MD Primary Care Provider [phone] Encounter Details Date Type Department Care Team (Late st Contact Info) Description 07/30/2015 Abstract [facility] Family Medicine - [address] [phone] Dane Sullivan DO [address] [phone] Social History Tobacco Use Types Packs/Day Years Used Date Smoking Tobacco: Never Assessed Comments Unknown Sex and Gender Information Value Date Recorded Sex Assigned at Female 12/06/2019 3:36 PM AUTOMATIC SPLICING 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 Legal Sex Female 5:20 PM CDT Gender Identity Female 12/06/2019 3:36 PM AUTOMATIC SPLICING 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 Sexual Orientation Straight 12/06/2019 3: 36 PM AUTOMATIC SPLICING 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 documented as of this encounter [...] in this encounter Progress Notes * Dane rGicel Sullivan, DO - 07/30/2015 1:00 PM CDT History of Present Illness 54yo Wf here for f/u She had numerous labs drawn by her previous PCM orders Dr Garay in May This was done at [facility] She forgot to forward the results to me Since last visit, she has started smoking again DM2, just dx no longer drinking soda unknown A1C, but it was high on metfomin bid, does not need refills Admits she went to green party over the weekend and can feel [...] 1 TABLET TID NEEDED FOR PAIN; Last Rx:[id number] Ordered 4. Losartan Potassium 100 MG Oral Tablet; TAKE 1 TABLET DAILY Requested for: [id number]; Last Rx:[id number] Ordered 5. MetFORMIN HCl - 500 MG Oral Tablet; TAKE 1 TABLET TWICE DAILY WITH MEALS Requested for: 16May2015; Last Rx:[id number] Ordered 6. Nicotine 21-14-7 MG/24HR Transdermal Kit; USE DIRECTED; Therapy: 17Jun2015 to (Last Rx:[id number]) Requested for: [id number] Ordered 7. Pravastatin Sodium 40 MG Oral Tablet; Take 1 tablet daily; Therapy: 16May2015 to (Last Rx:[id number]) Requested for: [id number] Ordered 8. PriLOSEC 20 MG Oral Capsule Delayed Release; Therapy: (Recorded:22Apr2015) to Recorded 9. PROzac 40 MG Oral Capsule; Therapy: (Recorded:22Apr2015) to Recorded 10. Qvar 40 MCG/ACT Inhalation Aerosol Solution; Therapy: (Recorded:22Apr2015) to Recorded 11. Singulair 10 MG Oral Tablet; Therapy: (Recorded:22Apr2015) to Recorded 12. Sulfamethoxazole-TMP DS 800-160 MG Oral Tablet; TAKE 1 TABLET TWICE DAILY; Therapy: 17Jun2015 to (Evaluate:[id number]) Requested for: [id number]; Last Rx:[id number] Ordered 13. Ventolin HFA 108 (90 Base) MCG/ACT Inhalation Aerosol Solution; INHALE 2 PUFFS EVERY 4 TO 6 HOURS NEEDED; Therapy: 90Llj3390 to (Last Rx:[id number]) Requested for: [id number] Ordered 14. Wellbutrin XL 150 MG Oral [...] Status:Hold For - Manual Activation; Requested for:30Jul2015; Perform:[facility]; Due:29Aug2015;Ordered; For:Diabetes mellitus, type 2; Ordered By:Dane Sullivan; 3. Lipid Profile; Status:Hold For - Manual Activation; Requested for:30Jul2015; Perform:[facility]; Due:29Aug2015;Ordered; For:Diabetes mellitus, type 2; Ordered By:Dane Sullivan; 4. Auto Vinyl Top Installer Referral Outpatient 54F with DM2 dx in January, has not been to nutrition, send to stuntman for DM education and tx, thanks Status: Need Information - Financial Authorization Requested for: 30Jul2015 Ordered; For: Diabetes mellitus, type 2; Ordered By: Dane Sullivan Performed: Due: 13Aug2015 Upper respiratory infection 5. Sulfamethoxazole-TMP DS 800-160 MG Oral Tablet Rx By: Dane Sullivan; Dispense: 5 Days ; #:10 Tablet; Refill: 0; For: Upper respiratory infection; ADAM = N; [facility]; Last Updated By: Jennifer Wayne; [...] smoking chronic pain Just started going to [facility] has only had 1 visit, and has f/u in Aug for possible VINNY Flu shot today f/u with me in Sep 2015 to repeat labs advised pt to get us lab results that were recently drawn in May Signatures Electronically signed by : Dane Sullivan D.O.; Jul 30 2015 1:26PM AUTOMATIC SPLICING 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 (Author) documented in this encounter Plan of Treatment Not on file documented as of this encounter Visit Diagnoses Not on filedocumented in this encounter Care Teams Cook House Laborer Relationship Specialty Start Date End Date Dane Sullivan DO PCP - General FAMILY PRACTICE 05/15/16 02/11/17 Deisi Andrews MD [address] [place] [address] [place] [address] PCP - General FAMILY PRACTICE 02/13/17 03/10/17 Heber uHynh MD PCP - General 03/11/17 06/14/17 Dane Sullivan DO PCP - General 05/04/16 05/14/16 Dane Sullivan DO PCP - General 04/17/16 05/03/16 Dane Sullivan DO PCP - General 03/26/16 04/16/16 Dane Sullivan DO PCP - General 11/12/15 03/25/16 Dane Sullivan DO PCP - General 09/24/15 11/11/15 Heber Huynh MD PCP - General 06/27/15 09/23/15 Deisi Andrews MD [address] [place] [address] [place] [address] PCP - General FAMILY PRACTICE 06/15/17 10/14/19 Asa Mcnamara MD [facility] [address] [place] [address] [place] Parachute Cushion Installer CARDIOVASCULAR DISEASE 05/15/16 documented as of this encounter
--- OUTSIDE RECORDS SUMMARY | 2024-11-12 05:31 | XMS_ITS | Encounter Summary ---
Author Organization [facility] Address [address] [facility]. [place], [place] [address] [place] [address] Care Team Providers Care Welder 2Nd Shift Name Role Phone Dane Sullivan DO Primary Care Provider + [phone] Asa Mcnamara MD Unavailable [phone] Deisi Andrews MD Primary Care Provider [phone] Heber Adorno MD Primary Care Provider Unavailable Dane Sullivan DO Primary Care Provider + [phone] Dane Sullivan DO Primary Care Provider + [phone] Dane Sullivan DO Primary Care Provider + [phone] Dane Sullivan DO Primary Care Provider + [phone] Dane Sullivan DO Primary Care Provider + [phone] Heber Adorno MD Primary Care Provider Unavailable Deisi Andrews MD Primary Care Provider [phone] Neva Holden MD Primary Care Provider [phone] Deisi Andrews MD Primary Care Provider [phone] Neva Holden MD Primary Care Provider [phone] Encounter Details Date Type Department Care Team (Late st Contact Info) Description 10/11/2007 Abstract [facility] Emergency Services [address] [place] [address] [place], [place] [id number] Heber Adorno MD Social History Tobacco Use Types Packs/Day Years Used Date Smoking Tobacco: Never Assessed Comments Unknown Sex and Gender Information Value Date Recorded Sex Assigned at Female 12/06/2019 3:36 PM GAS PLANT REPAIRER Legal Sex Female 5:20 PM CDT Gender Identity Female 12/06/2019 3:36 PM GAS PLANT REPAIRER Sexual Orientation Straight 12/06/2019 3: 36 PM GAS PLANT REPAIRER COVID-19 Exposure Response Date Recorded In the last month, have you been in contact with someone who was confirmed or suspected to have Coronavirus / COVID-19? Unable to assess 06/14/2020 2:13 PM CDT documented as of this encounter Plan of Treatment Not on file documented as of this encounter Visit Diagnoses Not on filedocumented in this encounter Care Teams Welder 2Nd Shift Relationship Specialty Start Date End Date Dane Sullivan DO PCP - General FAMILY PRACTICE 05/15/16 02/11/17 Deisi Andrews MD [address] [place] [address] [place] [address] PCP - General FAMILY PRACTICE 02/13/17 03/10/17 [...] General 06/27/15 09/23/15 Deisi Andrews MD [address] [place] [address] PCP - General FAMILY PRACTICE 06/15/17 10/14/19 Neva Holden MD [facility] [address] [place] [address] PCP - General FAMILY PRACTICE 10/15/19 12/05/19 Deisi Andrews MD [address] [place] [address] PCP - General FAMILY PRACTICE 12/06/19 02/13/20 eNva Holden MD . [facility] [address] [place] [address] PCP - General FAMILY PRACTICE 02/14/20 Asa Mcnamara MD [facility]. [address] [place] [address] [place] Sweatband Flanger CARDIOVASCULAR DISEASE 05/15/16 documented as of this encounter
--- OUTSIDE RECORDS SUMMARY | 2024-11-12 05:31 | XMS_ITS | Encounter Summary ---
Author Organization [facility] Address [address] [facility]. [place], [place] [address] [place] [address] Care Team Providers Care Wrapper Stitcher Name Role Phone Dane Sullivan DO Primary Care Provider + [phone] Asa Mcnamara MD Unavailable [phone] Deisi Andrews MD Primary Care Provider [phone] Heber Adorno MD Primary Care Provider Unavailable Dane Sullivan DO Primary Care Provider + [phone] Dane Sullivan DO Primary Care Provider + [phone] Dane Sullivan DO Primary Care Provider + [phone] Dane Sullivan DO Primary Care Provider + [phone] Dane Sullivan DO Primary Care Provider + [phone] Heber Adorno MD Primary Care Provider Unavailable Deisi Andrews MD Primary Care Provider [phone] Neva Holden MD Primary Care Provider [phone] Deisi Andrews MD Primary Care Provider +[phone] Neva Holden MD Primary Care Provider [phone] Encounter Details Date Type Department Care Team (Late st Contact Info) Description 10/03/2006 Abstract [facility] Medical/Surgical [address] [facility] [place], [place] [id number] Caesar Duran MD [address] [place] [address] [place] [address] Social History Tobacco Use Types Packs/Day Years Used Date Smoking Tobacco: Never Assessed Comments Unknown Sex and Gender Information Value Date Recorded Sex Assigned at Female 12/06/2019 3:36 PM POWDER MIXER Legal Sex Female 5:20 PM CDT Gender Identity Female 12/06/2019 3:36 PM POWDER MIXER Sexual Orientation Straight 12/06/2019 3: 36 PM POWDER MIXER COVID-19 Exposure Response Date Recorded In the last month, have you been in contact with someone who was confirmed or suspected to have Coronavirus / COVID-19? Unable to assess 06/14/2020 2:13 PM CDT documented as of this encounter Plan of Treatment Not on file documented as of this encounter Visit Diagnoses Not on filedocumented in this encounter Care Teams Wrapper Stitcher Relationship Specialty Start Date End Date Dane Sullivan DO PCP - General FAMILY PRACTICE 05/15/16 02/11/17 Deisi Andrews MD [address] [place] [address] [place] [address] PCP - General FAMILY PRACTICE 02/13/17 03/10/17 [...] General 06/27/15 09/23/15 Deisi Andrews MD [address] [place] [address] PCP - General FAMILY PRACTICE 06/15/17 10/14/19 Neva Holden MD [facility] [address] [place] [address] PCP - General FAMILY PRACTICE 10/15/19 12/05/19 Deisi Andrews MD [address] [place] [address] PCP - General FAMILY PRACTICE 12/06/19 02/13/20 Neva Holden MD [facility] [address] [place] [address] PCP - General FAMILY PRACTICE 02/14/20 Asa Mcnamara MD [facility]. [address] [place] [address] [place] Keyboarding Teacher CARDIOVASCULAR DISEASE 05/15/16 documented as of this encounter
--- OUTSIDE RECORDS SUMMARY | 2024-11-12 05:31 | XMS_ITS | Encounter Summary ---
Author Organization [facility] Address [address] [facility] [place] [address] [place] [address] Care Team Providers Care Arranger Assembler Name Role Phone Dane Sullivan DO Primary Care Provider + [phone] Asa Mcnamara MD Unavailable [phone] Deisi Andrews MD Primary Care Provider [phone] Heber Huynh MD Primary Care Provider Unavailable Dane Sullivan DO Primary Care Provider + [phone] Dane Sullivan DO Primary Care Provider + [phone] Dane Sullivan DO Primary Care Provider + [phone] Dane Sullivan DO Primary Care Provider + [phone] Dane Sullivan DO Primary Care Provider + [phone] Deisi Andrews MD Primary Care Provider [phone] Encounter Details Date Type Department Care Team (Late st Contact Info) Description 09/24/[address] [facility] [place] [address] Dane Sullivan DO [address] [facility] [place] [phone] Social History Tobacco Use Types Packs/Day Years Used Date Smoking Tobacco: Never Assessed Comments Unknown Sex and Gender Information Value Date Recorded Sex Assigned at Female 12/06/2019 3:36 PM BUSINESS ADMINISTRATION PROFESSOR Legal Sex Female 5:20 PM CDT Gender Identity Female 12/06/2019 3:36 PM BUSINESS ADMINISTRATION PROFESSOR Sexual Orientation Straight 12/06/2019 3: 36 PM BUSINESS ADMINISTRATION PROFESSOR documented as of this encounter Plan of Treatment Not on file documented as of this encounter Procedures Procedure Name Priority Date/Time Associated Diagnosis Comments TSH W/REFLEX Routine 09/24/2015 1:45 PM BUSINESS ADMINISTRATION PROFESSOR ALBUMIN URINE RANDOM W/CREATININE Routine 09/24/2015 1:45 PM BUSINESS ADMINISTRATION PROFESSOR COMPREHENSIVE METABOLIC PANEL Routine 09/24/2015 1:45 PM BUSINESS ADMINISTRATION PROFESSOR LIPID PANEL Routine 09/24/2015 1:45 PM BUSINESS ADMINISTRATION PROFESSOR documented in this encounter Results * (ABNORMAL) MICROALBUMIN URINE RANDOM (09/24/2015 1:45 PM BUSINESS ADMINISTRATION PROFESSOR) MICROALBUMIN (U) 7.9(H) <2.0 mg/dL 09/24/20 15 9:34 PM BUSINESS ADMINISTRATION PROFESSOR [facility] CREATININE (U) 125 28 - 217 mg/dL 09/24/2015 9:34 PM BUSINESS ADMINISTRATION PROFESSOR [facility] ALBUMIN/CREAT RATIO 63.2(H) <30 MG/G 09/24/2015 9:34 PM BUSINESS ADMINISTRATION PROFESSOR [facility] 09/24/2015 1:45 PM BUSINESS ADMINISTRATION PROFESSOR 09/24/2015 9:15 PM BUSINESS ADMINISTRATION PROFESSOR us Generic Conversion Md HUYNH URINE ORDERABLES Final Result [facility] [address] [place] [address], * TSH W/REFLEX (SNS) (09/24/2015 1:45 PM BUSINESS ADMINISTRATION PROFESSOR) TSH 0.30 0.27 - 4.20 mIU/mL 09/24/2015 9:47 PM BUSINESS ADMINISTRATION PROFESSOR [facility] Comment:FREE T4 NOT INDICATE D SERUM OR PLASMA SPECIMEN / Unknown 09/24/2015 1:45 PM BUSINESS ADMINISTRATION PROFESSOR 09/24/2015 9:14 PM BUSINESS ADMINISTRATION PROFESSOR us Generic Conversion Md HUYNH LABORATORY Final R esult [facility] [address] [place] [address], * (ABNORMAL) LIPID PANEL (09/24/2015 1:45 PM BUSINESS ADMINISTRATION PROFESSOR) LIPID INTERPRETATION 09/24/2015 9:47 PM BUSINESS ADMINISTRATION PROFESSOR [facility] Comment: NIH CONCENSUS REPORT RECOMMENDATIONS: ?ADULT ?CHILD [...] 5.9(H) 0.0 - 4.5 09/24/2015 9:47 PM [facility] CHOLESTEROL 224(H) <200 mg/dL 09/24/2015 9:47 PM [facility] Comment: NOTE: Acetaminophen, N Acetyl p benzoquinone imine (NAPQI), N acetylcysteine (NAC), Metamizole, 4 Aminoantipyrine (4 AAP) and 4 Methylamino antipyrine (4 MAP) at high concentrations can cause falsely low results on Lactate, Uric Acid, Cholesterol, Triglyceride, HDL, and Direct LDL. HDL 38(L) >59 mg/dL 09/24/2015 9:47 PM [facility] DIRECT LDL NOT CALCULATED <100 mg/dL 09/24/2015 9:47 PM [facility] Comment:TRIGLYCERIDE >400 IN VALIDATES FRACTIONATION. NON HDL CHOLESTEROL 186(H) <130 mg/dL 09/24/2015 9:47 PM [facility] Comment: NOTE: WHEN THE TRIGLYCERIDES ARE >200 mg/dL, NON HDL C IS A SECONDARY TARGET OF THERAPY, WITH A GOAL 30 mg/dL HIGHER THAN THE IDENTIFIED LDL C GOAL. TRIGLYCERIDES 520(H) <150 mg/dL 09/24/2015 9:47 PM [facility] VLDL CALCULATION NOT CALCULATED 5 - 55 mg/dL 09/24/2015 9:47 PM [facility] Comment:TRIGLYCERIDE >400 IN VALIDATES FRACTIONATION. 09/24/2015 1:45 PM BUSINESS ADMINISTRATION PROFESSOR 09/24/2015 9:14 PM BUSINESS ADMINISTRATION PROFESSOR us Generic Conversion Md HUYNH LABORATORY Final R esult [facility] [address] [place] [address], * (ABNORMAL) COMPREHENSIVE METABOLIC PANEL (09/24/2015 1:45 PM BUSINESS ADMINISTRATION PROFESSOR) GLUCOSE 121(H) 70 - 99 mg/dL 09/24/2015 9:47 PM BUSINESS ADMINISTRATION PROFESSOR [facility] BUN 11 8 - 23 mg/dL 09/24/2015 9:47 PM [facility] CREATININE S/P/B 0.71 0.60 - 1.10 mg/dL 09/24/2015 9:47 PM BUSINESS ADMINISTRATION PROFESSOR [facility] SODIUM S/P/B 142 136 - 145 mmol/L 09/24/2015 9:47 PM [facility] POTASSIUM S/P/B 3.9 3.5 - 5.1 mmol/L 09/24/2015 9:47 PM [facility] CHLORIDE S/P/B 97(L) 98 - 107 mmol/L 09/24/2015 9:47 PM BUSINESS ADMINISTRATION PROFESSOR [facility] CO2 27 22 - 29 mmol/L 09/24/2015 9:47 PM BUSINESS ADMINISTRATION PROFESSOR [facility] BILIRUBIN TOTAL S/P/B 0.2 0.2 - 1.2 mg/dL 09/24/2015 9:47 PM [facility] CALCIUM S/P/B 9.7 8.6 - 10.2 mg/dL 09/24/2015 9:47 PM [facility] ALKALINE PHOSPHATASE S/P/B 112(H) 35 - 104 IU/L 09/24/2015 9:47 PM [facility] AST 15 0 - 32 IU/L 09/24/2015 9:47 PM BUSINESS ADMINISTRATION PROFESSOR [facility] TOTAL PROTEIN S/P/B 7.7 6.4 - 8.3 g/dL 09/24/2015 9:47 PM [facility] ALBUMIN S/P/B 4.3 3.5 - 5.2 g/dL 09/24/2015 9:47 PM [facility] ALT 14 0 - 33 IU/L 09/24/2015 9:47 PM [facility] GLOBULIN 3.4 2.3 - 3.6 g/dL 09/24/2015 9:47 PM [facility] A/G RATIO 1.3 1.0 - 2.0 09/24/2015 9:47 PM [facility] ANION GAP 22(H) 8 - 20 09/24/2015 9:47 PM [facility] EGFR NON-AFR. AMER. >60 >60 mL/min/1.7 '2 09/24/2015 9:47 PM [facility] EGFR AFR. AMER. >60 >60 mL/min/1.7 [facility] [place] 09/24/2015 9:47 PM [facility] Comment: NOTE: eGFR is not calculated for patients <18 years of age. This is an estimated GFR (CKD EPI) and should not be used for calculating drug doses. 09/24/2015 1:45 PM BUSINESS ADMINISTRATION PROFESSOR 09/24/2015 9:14 PM BUSINESS ADMINISTRATION PROFESSOR us Generic Conversion Md HUYNH LABORATORY Final R esult [facility] [address] [place] [address], [place] [phone] documented in this encounter Visit Diagnoses Diagnosis Hyperlipidemia Other and unspecified hyperlipidemia documented in this encounter Care Teams Arranger Assembler Relationship Specialty Start Date End Date Dane Sullivan DO PCP - General FAMILY PRACTICE 05/15/16 02/11/17 Deisi Andrews MD [address] [address] PCP - General FAMILY PRACTICE 02/13/17 03/10/17 Heber Huynh MD PCP - General 03/11/17 06/14/17 Dane Sullivan DO PCP - General 05/04/16 05/14/16 Dane Sullivan DO PCP - General 04/17/16 05/03/16 Dane Sullivan DO PCP - General 03/26/16 04/16/16 Dane Sullivan DO PCP - General 11/12/15 03/25/16 Dane Sullivan DO PCP - General 09/24/15 11/11/15 Deisi Andrews MD [address] [place] [address] PCP - General FAMILY PRACTICE 06/15/17 10/14/19 Asa Mcnamara MD [place] [address] [place] [address] [place] Wax Molder CARDIOVASCULAR DISEASE 05/15/16 documented as of this encounter
--- OUTSIDE RECORDS SUMMARY | 2024-11-12 05:31 | XMS_ITS | Encounter Summary ---
Author Organization [facility] Address [facility] [place], [place] [address] [place] [address] Care Team Providers Care Java User Interface Developer Name Role Phone Dane Sullivan DO Primary Care Provider + [phone] Asa Mcnamara MD Unavailable [phone] Deisi Andrews MD Primary Care Provider [phone] Heber Adorno MD Primary Care Provider Unavailable Dane Sullivan DO Primary Care Provider + [phone] Dane Sullivan DO Primary Care Provider + [phone] Dane Sullivan DO Primary Care Provider + [phone] Dane Sullivan DO Primary Care Provider + [phone] Deisi Andrews MD Primary Care Provider [phone] Encounter Details Date Type Department Care Team (Latest Contact Info) Description 11/13/2015 Abstract [facility] Social History Tobacco Use Types Packs/Day Years Used Date Smoking Tobacco: Never Assessed Comments Unknown Sex and Gender Information Value Date Recorded Sex Assigned at Female 12/06/2019 3:36 PM NITRATE OPERATOR Legal Sex Female 5:20 PM CDT Gender Identity Female 12/06/2019 3:36 PM NITRATE OPERATOR Sexual Orientation Straight 12/06/2019 3: 36 PM NITRATE OPERATOR documented as of this encounter Progress Notes * DO Steffany Nguyen 11/13/2015 7:04 AM CST Message Your cholesterol numbers are much better now Please continue with your current meds Thanks Dr Sullivan Verified Results ALT ( SGPT ) [id number] 10:21AM Dane Sullivan Test Name Result Flag Reference ALT/GPT 16 IU/L 0-33 AST ( SGOT ) [id number] 10:21AM Dane Sullivan Test Name Result Flag Reference AST/GOT 12 IU/L 0-32 Lipid Profile [id number] 10:21AM Dane Sullivan Test Name Result Flag [...] filedocumented in this encounter Care Teams Java User Interface Developer Relationship Specialty Start Date End Date Dane Sullivan DO PCP - General FAMILY PRACTICE 05/15/16 02/11/17 Deisi Andrews MD [address] [place] [address] PCP - General FAMILY PRACTICE 02/13/17 03/10/17 Heber Adorno MD PCP - General 03/11/17 06/14/17 Dane Sullivan DO PCP - General 05/04/16 05/14/16 Dane Sullivan DO PCP - General 04/17/16 05/03/16 Dane Sullivan DO PCP - General 03/26/16 04/16/16 Dane Sullivan DO PCP - General 11/12/15 03/25/16 Deisi Andrews MD [address] [place] [address] PCP - General FAMILY PRACTICE 06/15/17 10/14/19 Asa Mcnamara MD [facility]. [address] [place] [address] [place] Pediatric Assistant CARDIOVASCULAR DISEASE 05/15/16 documented as of this encounter
--- OUTSIDE RECORDS SUMMARY | 2024-11-12 05:31 | XMS_ITS | Encounter Summary ---
Author Organization [facility] Address [address] [facility]. [place], [place] [address] [place] [address] Care Team Providers Care Landscape And Yardwork Laborer Name Role Phone Dane Sullivan DO Primary Care Provider + [phone] Asa Mcnamara MD Unavailable [phone] Deisi Andrews MD Primary Care Provider [phone] Md Generic Vivi HUYNH Primary Care Provider Unavailable Dane Sullivan DO Primary Care Provider + [phone] Dane Sullivan DO Primary Care Provider + [phone] Dane Sullivan DO Primary Care Provider + [phone] Dane Sullivan DO Primary Care Provider + [phone] Dane Sullivan DO Primary Care Provider + [phone] Md Generic Vivi HUYNH Primary Care Provider Unavailable Deisi Andrews MD Primary Care Provider [phone] Encounter Details Date Type Department Care Team (Latest Contact Info) Description 04/23/2015 Abstract [facility] Social History Tobacco Use Types Packs/Day Years Used Date Smoking Tobacco: Never Assessed Comments Unknown Sex and Gender Information Value Date Recorded Sex Assigned at Female 12/06/2019 3:36 PM COATING MIXER SUPERVISOR Legal Sex Female 5:20 PM CDT Gender Identity Female 12/06/2019 3:36 PM COATING MIXER SUPERVISOR Sexual Orientation Straight 12/06/2019 3: 36 PM COATING MIXER SUPERVISOR documented as of this encounter Progress [...] find anyone to take patient?s insurance in [place] so faxed to: Faxed to [facility] [phone] # [phone] Mckenna Lucas - 29 Apr 2015 11:50 [...] Dane Sullivan D.O.; Apr 29 2015 3:24PM COATING MIXER SUPERVISOR (Author) documented in this encounter Plan of Treatment Not on file documented as of this encounter Visit Diagnoses Not on filedocumented in this encounter Care Teams Landscape And Yardwork Laborer Relationship Specialty Start Date End Date Dane Sullivan DO PCP - General FAMILY PRACTICE 05/15/16 02/11/17 Deisi Andrews MD [address] [place] [address] PCP - General FAMILY PRACTICE 02/13/17 03/10/17 [...] General 06/27/15 09/23/15 Deisi Andrews MD [address] [place] [address] [place] [address] PCP - General FAMILY PRACTICE 06/15/17 10/14/19 Asa Mcnamara MD [facility]. [facility] [address] [place] [address] [place] Dialysis Tech CARDIOVASCULAR DISEASE 05/15/16 documented as of this encounter
--- OUTSIDE RECORDS SUMMARY | 2024-11-12 05:31 | XMS_ITS | Encounter Summary ---
Author Organization [facility] Address [facility]. [place], [place] [address] [place] [address] Care Team Providers Care Architectural Project Captain Name Role Phone Dane Sullivan DO Primary Care Provider + [phone] Asa Mcnamara MD Unavailable [phone] Deisi Andrews MD Primary Care Provider [phone] Heber Adorno MD Primary Care Provider Unavailable Dane Sullivan DO Primary Care Provider + [phone] Dane Sullivan DO Primary Care Provider + [phone] Dane Sullivan DO Primary Care Provider + [phone] Dane Sullivan DO Primary Care Provider + [phone] Deisi Andrews MD Primary Care Provider [phone] Encounter Details Date Type Department Care Team (Latest Contact Info) Description 01/20/2016 Abstract [facility] Medical Group Social History Tobacco Use Types Packs/Day Years Used Date Smoking Tobacco: Never Assessed Comments Unknown Sex and Gender Information Value Date Recorded Sex Assigned at Female 12/06/2019 3:36 PM TRAFFIC SIGNAL REPAIRER Legal Sex Female 5:20 PM CDT Gender Identity Female 12/06/2019 3:36 PM TRAFFIC SIGNAL REPAIRER Sexual Orientation Straight 12/06/2019 3: 36 PM TRAFFIC SIGNAL REPAIRER documented as of this encounter Plan of Treatment Not on file documented as of this encounter Visit Diagnoses Not on filedocumented in this encounter Care Teams Architectural Project Captain Relationship Specialty Start Date End Date Dane Sullivan DO PCP - General FAMILY PRACTICE 05/15/16 02/11/17 Deisi Andrews MD [address] [place] [address] PCP - General FAMILY PRACTICE 02/13/17 03/10/17 Heber Adorno MD PCP - General 03/11/17 06/14/17 Dane Sullivan DO PCP - General 05/04/16 05/14/16 Dane Sullivan DO PCP - General 04/17/16 05/03/16 aDne Sullivan DO PCP - General 03/26/16 04/16/16 Dane Sullivan DO PCP - General 11/12/15 03/25/16 Deisi Andrews MD [address] [place] [address] PCP - General FAMILY PRACTICE 06/15/17 10/14/19 Asa Mcnamara MD [facility]. [facility] [address] [place] [address] [place] [employer] Singer CARDIOVASCULAR DISEASE 05/15/16 documented as of this encounter
--- OUTSIDE RECORDS SUMMARY | 2024-11-12 05:31 | XMS_ITS | Encounter Summary ---
Author Organization [facility] Address [address] [facility]. [place], [place] [address] [place] [address] Care Team Providers Care Clinical Research Nurse Name Role Phone Dane Sullivan DO Primary Care Provider + [phone] Asa Mcnamara MD Unavailable [phone] SullivanDane L DO Primary Care Provider + [phone] SullivanFarnazDane L DO Primary Care Provider + [phone] SullivanFarnazDnae L DO Primary Care Provider + [phone] Sullivan Dane L DO Primary Care Provider + [phone] Sullivan Dane L DO Primary Care Provider + [phone] Heber Adorno MD Primary Care Provider Unavailable Encounter Details Date Type Department Care Team (Late st Contact Info) Description 04/08/2015 Abstract [facility] [address] [place] [address] Md Generic MD Vivi Social History Tobacco Use Types Packs/Day Years Used Date Smoking Tobacco: Never Assessed Comments Unknown Sex and Gender Information Value Date Recorded Sex Assigned at Female 12/06/2019 3:36 PM APPOINTMENT SCHEDULER Legal Sex Female 5:20 PM CDT Gender Identity Female 12/06/2019 3:36 PM APPOINTMENT SCHEDULER Sexual Orientation Straight 12/06/2019 3: 36 PM APPOINTMENT SCHEDULER documented as of this encounter Plan of Treatment Not on file documented as of this encounter Visit Diagnoses Not on filedocumented in this encounter Care Teams Clinical Research Nurse Relationship Specialty Start Date End Date Dane [...] - General 06/27/15 09/23/15 Asa Mcnamara MD [facility]. [facility] [address] [place] [address] [place] Director Of Epidemiology CARDIOVASCULAR DISEASE 05/15/16 documented as of this encounter
--- OUTSIDE RECORDS SUMMARY | 2024-11-12 05:31 | XMS_ITS | Encounter Summary ---
Author Organization [facility] Address [address] [facility]. [place], [place] [address] [place] [address] Care Team Providers Care Plaster Mold Maker Name Role Phone Dane Sullivan DO Primary Care Provider + [phone] Asa Mcnamara MD Unavailable +[phone] Deisi Andrews MD Primary Care Provider [phone] Heber Adorno MD Primary Care Provider Unavailable Dane Sullivan DO Primary Care Provider + [phone] Dane Sullivan DO Primary Care Provider + [phone] Dane Sullivan DO Primary Care Provider + [phone] Deisi Andrews MD Primary Care Provider [phone] Encounter Details Date Type Department Care Team (Late st Contact Info) Description 04/01/2016 Abstract [facility] Medical Group [facility] [place] [address] [place] [address] Carlin Jaquez, DPDilcia [address] [place] [address] Social History Tobacco Use Types Packs/Day Years Used Date Smoking Tobacco: Never Assessed Comments Unknown Sex and Gender Information Value Date Recorded Sex Assigned at Female 12/06/2019 3:36 PM EDGING CATCHER Legal Sex Female 5:20 PM CDT Gender Identity Female 12/06/2019 3:36 PM EDGING CATCHER Sexual Orientation Straight 12/06/2019 3: 36 PM EDGING CATCHER documented as of this encounter Last Filed [...] Smoking (305.1) (F17.200) Immunizations Influenza --- Series1: [id number] Current Meds 1. AmLODIPine Besylate 5 MG Oral Tablet; TAKE 1 TABLET DAILY DIRECTED; Therapy: 25Sep2015 to (Evaluate:71Mvp8084) Requested for: 25Voc7097; Last Rx:26Mar2016 Ordered 2. Aspirin 325 MG Oral Tablet; Therapy: (Recorded:99Gft0933) to Recorded 3. Cyclobenzaprine HCl - 10 MG Oral Tablet; TAKE 1 TABLET QD-BID PRN; Therapy: 27Nov2015 to (Last Rx:27Nov2015) Requested for: 27Nov2015 Ordered 4. Losartan Potassium 100 MG Oral Tablet; TAKE ONE TABLET BY MOUTH ONCE DAILY; Therapy: 10Mar2016 to (Evaluate:05Dec2016) Requested for: 10Mar2016; Last Rx:[id number] Ordered 5. MetFORMIN HCl - 500 MG Oral Tablet; TAKE ONE TABLET BY MOUTH TWICE DAILY WITH MEALS; Therapy: 10Mar2016 to (Evaluate:06Icb2669) Requested for: 10Mar2016; Last Rx:[id number] Ordered 6. Montelukast Sodium 10 MG Oral Tablet; TAKE 1 TABLET DAILY Requested for: 24Sdz2688; Last Rx:[id number] Ordered 7. Pravastatin Sodium 40 MG Oral Tablet; TAKE ONE TABLET BY MOUTH ONCE DAILY; Therapy: 73Tou0374 to (Evaluate:73Wuf4014) Requested for: 12Feb2016; Last Rx:12Feb2016 Ordered 8. PriLOSEC 20 MG Oral Capsule Delayed Release (Omeprazole); Therapy: (Recorded:69Mby5083) to Recorded 9. PROzac 40 MG Oral Capsule (FLUoxetine HCl); Therapy: (Recorded:52Atd6335) to Recorded 10. Qvar 40 MCG/ACT Inhalation Aerosol Solution; INHALE ONE PUFF BY MOUTH TWICE DAILY; Therapy: 36Wdj2658 to (Evaluate:23Sep2016) Requested for: 27Mar2016; Last Rx:27Mar2016 Ordered 11. Ventolin HFA 108 (90 Base) MCG/ACT Inhalation Aerosol Solution; INHALE TWO PUFFS BY MOUTH EVERY 4 TO 6 HOURS NEEDED; Therapy: 50Kci3261 to (Evaluate:22Feb2016) Requested for: 16Dec2015; Last Rx:[id number] Ordered 12. Xanax 1 MG Oral Tablet (ALPRAZolam); Therapy: (Recorded:12Dya8960) to Recorded Allergies 1. Halcion 2. Haldol [...] Glucose Negative Bilirubin Negative Ketones Negative Specific [place] 1.030 Blood Negative pH 5.5 5.0 - [...] Carlin Jaquez DPM; Apr 15 2016 10:16AM EDGING CATCHER (Author) documented in this encounter Plan of Treatment Not on file documented as of this encounter Visit Diagnoses Not on filedocumented in this encounter Care Teams Plaster Mold Maker Relationship Specialty Start Date End Date Dane Sullivan DO PCP - General FAMILY PRACTICE 05/15/16 02/11/17 Deisi Andrews MD [address] [place] [address] PCP - General FAMILY PRACTICE 02/13/17 03/10/17 Heber Adorno MD PCP - General 03/11/17 06/14/17 Dane Sullivan DO PCP - General 05/04/16 05/14/16 Dane Sullivan DO PCP - General 04/17/16 05/03/16 Dane Sullivan DO PCP - General 03/26/16 04/16/16 Deisi Andrews MD [address] [place] [address] PCP - General FAMILY PRACTICE 06/15/17 10/14/19 Asa Mcnamara [address] [facility]. [facility] [address] [place] [address] [place] Job Analyst CARDIOVASCULAR DISEASE 05/15/16 documented as of this encounter
--- OUTSIDE RECORDS SUMMARY | 2024-11-12 05:31 | XMS_ITS | Encounter Summary ---
Author Organization [facility] Address [address] [facility] [place], [place] [address] [place] [address] Care Team Providers Care Lead Fabricator Name Role Phone Dane Sullivan DO Primary Care Provider + [phone] Asa Mcnamara MD Unavailable +[phone] Deisi Andrews MD Primary Care Provider [phone] Heber Huynh MD Primary Care Provider Unavailable Dane Sullivan DO Primary Care Provider + [phone] Dane Sullivan DO Primary Care Provider + [phone] Dane Sullivan DO Primary Care Provider + [phone] Dane Sullivan DO Primary Care Provider + [phone] Deisi Andrews MD Primary Care Provider [phone] Encounter Details Date Type Department Care Team (Late st Contact Info) Description 11/12/[address] [place] [facility] [address] Dane Sullivan DO [address] [phone] Social History Tobacco Use Types Packs/Day Years Used Date Smoking Tobacco: Never Assessed Comments Unknown Sex and Gender Information Value Date Recorded Sex Assigned at Female 12/06/2019 3:36 PM DIRECTOR OF ACADEMIC Legal Sex Female 5:20 PM CDT Gender Identity Female 12/06/2019 3:36 PM DIRECTOR OF ACADEMIC Sexual Orientation Straight 12/06/2019 3: 36 PM DIRECTOR OF ACADEMIC documented as of this encounter Plan of Treatment Not on file documented as of this encounter Procedures Procedure Name Priority Date/Time Associated Diagnosis Comments AST/SGOT Routine 11/12/2015 10:21 AM DIRECTOR OF ACADEMIC LIPID PANEL Routine 11/12/2015 10:21 AM DIRECTOR OF ACADEMIC ALT/SGPT Routine 11/12/2015 10:21 AM DIRECTOR OF ACADEMIC documented in this encounter Results * (ABNORMAL) LIPID PANEL (11/12/2015 10:21 AM DIRECTOR OF ACADEMIC) LIPID INTERPRETATION 11/12/2015 7:42 PM DIRECTOR OF ACADEMIC [facility] Comment: NIH CONCENSUS REPORT [...] 4.3 0.0 - 4.5 11/12/2015 7:42 PM [facility] CHOLESTEROL 204(H) <200 mg/dL 11/12/2015 7:42 PM [facility] Comment: NOTE: Acetaminophen, N Acetyl p benzoquinone imine (NAPQI), N acetylcysteine (NAC), Metamizole, 4 Aminoantipyrine (4 AAP) and 4 Methylamino antipyrine (4 MAP) at high concentrations can cause falsely low results on Lactate, Uric Acid, Cholesterol, Triglyceride, HDL, and Direct LDL. HDL 48(L) >59 mg/dL 11/12/2015 7:42 PM [facility] DIRECT LDL 115(H) <100 mg/dL 11/12/2015 7:42 PM [facility] NON HDL CHOLESTEROL 156(H) <130 mg/dL 11/12/2015 7:42 PM [facility] Comment: NOTE: WHEN THE TRIGLYCERIDES ARE >200 mg/dL, NON HDL C IS A SECONDARY TARGET OF THERAPY, WITH A GOAL 30 mg/dL HIGHER THAN THE IDENTIFIED LDL C GOAL. TRIGLYCERIDES 203(H) <150 mg/dL 11/12/2015 7:42 PM [facility] VLDL CALCULATION 41 5 - 55 mg/dL 11/12/2015 7:42 PM [facility] 11/12/2015 10:2 1 AM DIRECTOR OF ACADEMIC 11/12/2015 7:22 PM DIRECTOR OF ACADEMIC us Generic Conversion Md HUYNH LABORAT[facility] Final R esult Performing Organization Address City/[facility]/ZIP Co de Phone Number [facility] [address] [place] [address], * AST/SGOT (11/12/2015 10:21 AM DIRECTOR OF ACADEMIC) AST 12 0 - 32 IU/L 11/12/2015 7:42 PM DIRECTOR OF ACADEMIC [facility] SERUM OR PLASMA SPECIMEN / Unknown 11/12/2015 10:21 AM DIRECTOR OF ACADEMIC 11/12/2015 7:22 PM DIRECTOR OF ACADEMIC Generic Conversion Md HUYNH LABORATORY Final R esult Performing Organization Address [facility]/ZIP Co de Phone Number [facility] [address] [place] [address], * ALT/SGPT (11/12/2015 10:21 AM DIRECTOR OF ACADEMIC) ALT 16 0 - 33 IU/L 11/12/2015 7:42 PM DIRECTOR OF ACADEMIC [facility] SERUM OR PLASMA SPECIMEN / Unknown 11/12/2015 10:21 AM DIRECTOR OF ACADEMIC 11/12/2015 7:22 PM DIRECTOR OF ACADEMIC Generic Conversion Md HUYNH LABORAT[facility] Final R esult Performing Organization Address [facility]/ZIP Co de Phone Number [facility] [address] [place] [address], documented in this encounter Visit Diagnoses Diagnosis Hyperlipidemia Other and unspecified hyperlipidemia documented in this encounter Care Teams Lead Fabricator Relationship Specialty Start Date End Date Dane Sullivan DO PCP - General FAMILY PRACTICE 05/15/16 02/11/17 Deisi Andrews MD [address] [place] [address] PCP - General FAMILY PRACTICE 02/13/17 03/10/17 Heber Huynh MD PCP - General 03/11/17 06/14/17 Dane Sullivan DO PCP - General 05/04/16 05/14/16 Dane Sullivan DO PCP - General 04/17/16 05/03/16 Dane Sullivan DO PCP - General 03/26/16 04/16/16 Dane Sullivan DO PCP - General 11/12/15 03/25/16 Deisi Andrews MD [address] [place] [address] PCP - General FAMILY PRACTICE 06/15/17 10/14/19 Asa Mcnamara MD [facility]. [facility] [address] [place] [address] [place] Project Development Engineer CARDIOVASCULAR DISEASE 05/15/16 documented as of this encounter
--- OUTSIDE RECORDS SUMMARY | 2024-11-12 05:31 | XMS_ITS | Encounter Summary ---
Author Organization [facility] Address [address] [facility] [place] [address] [place] [address] Care Team Providers Care Ecdis N Navigation Operator Name Role Phone Dane Sullivan DO Primary Care Provider + [phone] Asa Mcnamara MD Unavailable +[phone] Deisi Andrews MD Primary Care Provider [phone] Md Generic Conversion Primary Care Provider Unavailable Dane Sullivan DO Primary Care Provider + [phone] Dane Sullivan DO Primary Care Provider + [phone] Dane Sullivan DO Primary Care Provider + [phone] Dane Sullivan DO Primary Care Provider + [phone] Dane Sullivan DO Primary Care Provider + [phone] Md Generic Vivi HUYNH Primary Care Provider Unavailable Deisi Andrews MD Primary Care Provider [phone] Encounter Details Date Type Department Care Team (Late st Contact Info) Description 06/17/2015 Abstract [facility] Medical Group Family Medicine - [address] [phone] Dane Sullivan DO [address] [phone] Social History Tobacco Use Types Packs/Day Years Used Date Smoking Tobacco: Never Assessed Comments Unknown Sex and Gender Information Value Date Recorded Sex Assigned at Female 12/06/2019 3:36 PM COTTON INSPECTOR Legal Sex Female 5:20 PM CDT Gender Identity Female 12/06/2019 3:36 PM COTTON INSPECTOR Sexual Orientation Straight 12/06/2019 3: 36 PM COTTON INSPECTOR documented as of this encounter Last Filed [...] 1 TABLET TID NEEDED FOR PAIN; Last Rx:[id number] Ordered Rx By: Caesar Barrera; Dispense: 0 Days ; #:70 Tablet; Refill: 0; For: Chronic pain; ADAM = N; Print Rx; Last Updated By: Starr Melendez; 06/04/2015 9:09:45 AM 4. Losartan Potassium 100 MG Oral Tablet; TAKE 1 TABLET DAILY Requested for: 59Dlu1514; Last Rx:[id number] Ordered Rx By: Dane Sullivan; Dispense: 90 Days ; #:90 Tablet; Refill: 1; For: Hypertension; ADAM = N; Verified Transmission to [facility]; Last Updated By: [employer]; 05/16/2015 1:41:31 PM 5. MetFORMIN HCl - 500 MG Oral Tablet; TAKE 1 TABLET TWICE DAILY WITH MEALS Requested for: [id number]; Last Rx:[id number] Ordered Rx By: Dane Sullivan; Dispense: 90 Days ; #:180 Tablet; Refill: 1; For: Health Maintenance; ADAM =N; Verified Transmission to [facility]; Last Updated By: [employer]; 05/16/2015 1:41:30 PM 6. Pravastatin Sodium 40 MG Oral Tablet; Take 1 tablet daily; Therapy: 55Gpt7106 to (Last Rx:[id number]) Requested for: [id number] Ordered Rx By: Dane Sullivan; Dispense: 0 Days ; #:90 Tablet; Refill: 1; For: Hyperlipidemia; ADAM = N; Verified Transmission to [facility]; Last Updated By: [employer]; 05/16/2015 1:41:31PM 7. PriLOSEC 20 MG Oral [...] Jennifer Wayne; 04/22/2015 1:02:20 PM Vitals Recorded: [id number] 01:07PM Temperature 98.3 F Heart Rate 97 [...] respiratory infection; ADAM = N; Sent To: [facility] 2. Sulfamethoxazole-TMP DS 800-160 MG Oral Tablet; TAKE 1 TABLET TWICE DAILY Rx By: Dane Sullivan; Dispense: 5 Days ; #:10 Tablet; Refill: 0; For: Upper respiratory infection; ADAM = N; [facility] Discussion/Summary Given duration of symptoms, [...] Dane Sullivan D.O.; Jun 17 2015 1:25PM COTTON INSPECTOR (Author) documented in this encounter Plan of Treatment Not on file documented as of this encounter Visit Diagnoses Not on filedocumented in this encounter Care Teams Ecdis N Navigation Operator Relationship Specialty Start Date End Date Dane Sullivan DO PCP - General FAMILY PRACTICE 05/15/16 02/11/17 Deisi Andrews MD [address] [place] [address] PCP - General FAMILY PRACTICE 02/13/17 03/10/17 [...] - General 06/27/15 09/23/15 Deisi Andrews MD [address] [place] [address] [place] [address] PCP - General FAMILY PRACTICE 06/15/17 10/14/19 Asa Mcnamara MD [facility] [address] [place] [address] [place] Property Economist CARDIOVASCULAR DISEASE 05/15/16 documented as of this encounter
--- OUTSIDE RECORDS SUMMARY | 2024-11-12 05:31 | XMS_ITS | Encounter Summary ---
Author Organization [facility] Address [address] [facility]. [place], [place] [address] [place] [address] Care Team Providers Care Sales Office Administrator Name Role Phone Dane Sullivan DO Primary Care Provider + [phone] Asa Mcnamara MD Unavailable [phone] Deisi Andrews MD Primary Care Provider [phone] Heber Adorno MD Primary Care Provider Unavailable Dane Sullivan DO Primary Care Provider + [phone] Dane Sullivan DO Primary Care Provider + [phone] Dane Sullivan DO Primary Care Provider + [phone] Dane Sullivan DO Primary Care Provider + [phone] Dane Sullivan DO Primary Care Provider + [phone] Heber Adorno MD Primary Care Provider Unavailable Deisi Andrews MD Primary Care Provider +- [phone] Neva Holden MD Primary Care Provider +[phone] Deisi Andrews MD Primary Care Provider [phone] Neva Holden MD Primary Care Provider [phone] Encounter Details Date Type Department Care Team (Late st Contact Info) Description 10/10/2006 Abstract [facility] Emergency Services [address] [place] [address] [place], [place] [phone] Caesar Pierre MD [facility] [place] [address] Social History Tobacco Use Types Packs/Day Years Used Date Smoking Tobacco: Never Assessed Comments Unknown Sex and Gender Information Value Date Recorded Sex Assigned at Female 12/06/2019 3:36 PM PEN TESTER Legal Sex Female 5:20 PM CDT Gender Identity Female 12/06/2019 3:36 PM PEN TESTER Sexual Orientation Straight 12/06/2019 3: 36 PM PEN TESTER COVID-19 Exposure Response Date Recorded In the last month, have you been in contact with someone who was confirmed or suspected to have Coronavirus / COVID-19? Unable to assess 06/14/2020 2:13 PM CDT documented as of this encounter Plan of Treatment Not on file documented as of this encounter Visit Diagnoses Not on filedocumented in this encounter Care Teams Sales Office Administrator Relationship Specialty Start Date End Date Dane Sullivan DO PCP - General FAMILY PRACTICE 05/15/16 02/11/17 Deisi Andrews MD [address] [place] [address] PCP - General FAMILY PRACTICE 02/13/17 03/10/17 [...] General 06/27/15 09/23/15 Deisi Andrews MD [address] [place] [address] PCP - General FAMILY PRACTICE 06/15/17 10/14/19 Neva Holden MD [facility] [address] [place] [address] PCP - General FAMILY PRACTICE 10/15/19 12/05/19 Deisi Andrews MD [address] [place] [address] PCP - General FAMILY PRACTICE 12/06/19 02/13/20 Neva Holden MD [facility] [address] [place] [address] PCP - General FAMILY PRACTICE 02/14/20 Asa Mcnamara MD [facility]. [facility] [address] [place] [address] [facility] Administration Teacher CARDIOVASCULAR DISEASE 05/15/16 documented as of this encounter
--- OUTSIDE RECORDS SUMMARY | 2024-11-12 05:31 | XMS_ITS | Encounter Summary ---
Author Organization [facility] Address [facility]. [place], [place] [address] [place] [address] Care Team Providers Care Tip Out Worker Name Role Phone Dane Sullivan DO Primary Care Provider + [phone] Dane Sullivan DO Primary Care Provider + [phone] Encounter Details Date Type Department Care Team (Late st Contact Info) Description 04/10/2016 Abstract [facility] [address] [place] [address] , Heber Trinidad MD Social History Tobacco Use Types Packs/Day Years Used Date Smoking Tobacco: Never Assessed Comments Unknown Sex and Gender Information Value Date Recorded Sex Assigned at Female 12/06/2019 3:36 PM PAYMENT ANALYST Legal Sex Female 5:20 PM CDT Gender Identity Female 12/06/2019 3:36 PM PAYMENT ANALYST Sexual Orientation Straight 12/06/2019 3: 36 PM PAYMENT ANALYST documented as of this encounter Last [...] on filedocumented in this encounter Care Teams Tip Out Worker Relationship Specialty Start Date End Date Dane Sullivan DO PCP - General 04/17/16 05/03/16 Dane Sullivan DO PCP - General 03/26/16 04/16/16 documented as of this encounter
--- OUTSIDE RECORDS SUMMARY | 2024-11-12 05:31 | XMS_ITS | Encounter Summary ---
Author Organization [facility] Address [address] [facility]. [place], [place] [address] [place] [address] Care Team Providers Care Director Emergency Name Role Phone Dane Sullivan DO Primary Care Provider + [phone] Asa Mcnamara MD Unavailable +[phone] Deisi Andrews MD Primary Care Provider [phone] Heber Adorno MD Primary Care Provider Unavailable Dane Sullivan DO Primary Care Provider + [phone] Dane Sullivan DO Primary Care Provider + [phone] Dane Sullivan DO Primary Care Provider + [phone] Dane Sullivan DO Primary Care Provider + [phone] Dane Sullivan DO Primary Care Provider + [phone] Heber Adorno MD Primary Care Provider Unavailable Deisi Andrews MD Primary Care Provider [phone] Neva Holden MD Primary Care Provider +[phone] Deisi Andrews MD Primary Care Provider [phone] Neva Holden MD Primary Care Provider +[phone] Encounter Details Date Type Department Care Team (Late st Contact Info) Description 01/06/2007 Abstract [facility] [address] [facility] [place] [address] Starr Cadet DO [address] [place] [address] [place] [address] Social History Tobacco Use Types Packs/Day Years Used Date Smoking Tobacco: Never Assessed Comments Unknown Sex and Gender Information Value Date Recorded Sex Assigned at Female 12/06/2019 3:36 PM FILTER BED PLACER Legal Sex Female 5:20 PM CDT Gender Identity Female 12/06/2019 3:36 PM FILTER BED PLACER Sexual Orientation Straight 12/06/2019 3: 36 PM FILTER BED PLACER COVID-19 Exposure Response Date Recorded In the last month, have you been in contact with someone who was confirmed or suspected to have Coronavirus / COVID-19? Unable to assess 06/14/2020 2:13 PM CDT documented as of this encounter Plan of Treatment Not on file documented as of this encounter Visit Diagnoses Not on filedocumented in this encounter Care Teams Director Emergency Relationship Specialty Start Date End Date Dane Sullivan DO PCP - General FAMILY PRACTICE 05/15/16 02/11/17 Deisi Andrews MD [address] [place] [address] [place] [address] PCP - General FAMILY PRACTICE 02/13/17 03/10/17 [...] General 06/27/15 09/23/15 Deisi Andrews MD [address] [place] [address] PCP - General FAMILY PRACTICE 06/15/17 10/14/19 Neva Holden MD [facility] [address] [place] [address] PCP - General FAMILY PRACTICE 10/15/19 12/05/19 Deisi Andrews MD [address] [place] [address] PCP - General FAMILY PRACTICE 12/06/19 02/13/20 Neva Holden MD [facility] [address] [place] [address] PCP - General FAMILY PRACTICE 02/14/20 Asa Mcnamara MD [facility]. [facility] [address] [place] [address] Jasper Dot Compliance Manager CARDIOVASCULAR DISEASE 05/15/16 documented as of this encounter
--- OUTSIDE RECORDS SUMMARY | 2024-11-12 05:31 | XMS_ITS | Encounter Summary ---
Author Organization [facility] Address [address] [facility]. [place], [place] [address] [place] [address] Care Team Providers Care Patient Care Representative Name Role Phone Dane Sullivan DO Primary Care Provider + [phone] Asa Mcnamara MD Unavailable +[phone] Deisi Andrews MD Primary Care Provider [phone] Heber Adorno MD Primary Care Provider Unavailable Dane Sullivan DO Primary Care Provider + [phone] Dane Sullivan DO Primary Care Provider + [phone] Dane Sullivan DO Primary Care Provider + [phone] Dane Sullivan DO Primary Care Provider + [phone] Dane Sullivan DO Primary Care Provider + [phone] Heber Adorno MD Primary Care Provider Unavailable Deisi Andrews MD Primary Care Provider [phone] Encounter Details Date Type Department Care Team (Late st Contact Info) Description 08/25/2004 Abstract [facility] [place] [address] Heber Adorno MD Social History Tobacco Use Types Packs/Day Years Used Date Smoking Tobacco: Never Assessed Comments Unknown Sex and Gender Information Value Date Recorded Sex Assigned at Female 12/06/2019 3:36 PM ENVIRONMENTAL TECH Legal Sex Female 5:20 PM CDT Gender Identity Female 12/06/2019 3:36 PM ENVIRONMENTAL TECH Sexual Orientation Straight 12/06/2019 3: 36 PM ENVIRONMENTAL TECH documented as of this encounter Plan of Treatment Not on file documented as of this encounter Visit Diagnoses Not on filedocumented in this encounter Care Teams Patient Care Representative Relationship Specialty Start Date End Date Dane Sullivan DO PCP - General FAMILY PRACTICE 05/15/16 02/11/17 Deisi Andrews MD [address] [place] [address] PCP - General FAMILY PRACTICE 02/13/17 03/10/17 [...] - General 06/27/15 09/23/15 Deisi Andrews MD [address] [place] [address] [place] [address] PCP - General FAMILY PRACTICE 06/15/17 10/14/19 Asa Mcnamara MD [facility] [address] [place] [address] [employer] Nurse CARDIOVASCULAR DISEASE 05/15/16 documented as of this encounter
--- OUTSIDE RECORDS SUMMARY | 2024-11-12 05:32 | XMS_ITS | Encounter Summary ---
Author Organization [facility] Address [address] [facility]. [place], [place] [address] [place] [address] Care Team Providers Care Nursing Assistants Teacher Name Role Phone Dane Sullivan DO Primary Care Provider + [phone] Asa Mcnamara MD Unavailable +[phone] Deisi Andrews MD Primary Care Provider [phone] Heber Adorno MD Primary Care Provider Unavailable Dane Sullivan DO Primary Care Provider + [phone] Dane Sullivan DO Primary Care Provider + [phone] Dane Sullivan DO Primary Care Provider + [phone] Dane Sullivan DO Primary Care Provider + [phone] Dane Sullivan DO Primary Care Provider + [phone] Heber Adorno MD Primary Care Provider Unavailable Deisi Andrews MD Primary Care Provider [phone] Encounter Details Date Type Department Care Team (Late st Contact Info) Description 12/10/2002 Abstract [facility] [place] 3rd [place] [address] Heber Adorno MD Social History Tobacco Use Types Packs/Day Years Used Date Smoking Tobacco: Never Assessed Comments Unknown Sex and Gender Information Value Date Recorded Sex Assigned at Female 12/06/2019 3:36 PM AUTOMATIC VULCANIZING OPERATOR Legal Sex Female 5:20 PM CDT Gender Identity Female 12/06/2019 3:36 PM AUTOMATIC VULCANIZING OPERATOR Sexual Orientation Straight 12/06/2019 3: 36 PM AUTOMATIC VULCANIZING OPERATOR documented as of this encounter Plan of Treatment Not on file documented as of this encounter Visit Diagnoses Not on filedocumented in this encounter Care Teams Nursing Assistants Teacher Relationship Specialty Start Date End Date Dane Sullivan DO PCP - General FAMILY PRACTICE 05/15/16 02/11/17 Deisi Andrews MD [address] [place] [address] PCP - General FAMILY PRACTICE 02/13/17 03/10/17 [...] - General 06/27/15 09/23/15 Deisi Andrews MD [address] [place] [address] [place] [address] PCP - General FAMILY PRACTICE 06/15/17 10/14/19 Asa Mcnamara MD [facility]. [facility] [address] [place] [address] [place] Category Development Analyst CARDIOVASCULAR DISEASE 05/15/16 documented as of this encounter
--- OUTSIDE RECORDS SUMMARY | 2024-11-12 05:32 | XMS_ITS | Encounter Summary ---
Author Organization [facility] Address [address] [facility]. [place], [place] [address] [place] [address] Care Team Providers Care Welding Machine Operator Gas Name Role Phone Dane Sullivan DO Primary Care Provider + [phone] Asa Mcnamara MD Unavailable +[phone] Deisi Andrews MD Primary Care Provider [phone] Heber Adorno MD Primary Care Provider Unavailable Dane Sullivan DO Primary Care Provider + [phone] Dane Sullivan DO Primary Care Provider + [phone] Dane Sullivan DO Primary Care Provider + [phone] Dane Sullivan DO Primary Care Provider + [phone] Dane Sullivan DO Primary Care Provider + [phone] Heber Adorno MD Primary Care Provider Unavailable Deisi Andrews MD Primary Care Provider [phone] Encounter Details Date Type Department Care Team (Late st Contact Info) Description 11/20/[address] [facility] [place] [address] Heber Adorno MD Social History Tobacco Use Types Packs/Day Years Used Date Smoking Tobacco: Never Assessed Comments Unknown Sex and Gender Information Value Date Recorded Sex Assigned at Female 12/06/2019 3:36 PM MORTGAGE ANALYST Legal Sex Female 5:20 PM CDT Gender Identity Female 12/06/2019 3:36 PM MORTGAGE ANALYST Sexual Orientation Straight 12/06/2019 3: 36 PM MORTGAGE ANALYST documented as of this encounter Plan of Treatment Not on file documented as of this encounter Visit Diagnoses Not on filedocumented in this encounter Care Teams Welding Machine Operator Gas Relationship Specialty Start Date End Date Dane Sullivan DO PCP - General FAMILY PRACTICE 05/15/16 02/11/17 Deisi Andrews MD [address] [place] [address] PCP - General FAMILY PRACTICE 02/13/17 03/10/17 [...] - General 06/27/15 09/23/15 Deisi Andrews MD [address] [place] [address] [place] [address] PCP - General FAMILY PRACTICE 06/15/17 10/14/19 Asa Mcnamara MD [facility] [address] [place] [address] [place] Efficiency Clerk CARDIOVASCULAR DISEASE 05/15/16 documented as of this encounter
--- OUTSIDE RECORDS SUMMARY | 2024-11-12 05:32 | XMS_ITS | Encounter Summary ---
Author Organization [facility] Address [address] [facility]. [place], [place] [address] [place] [address] Care Team Providers Care Filter Washer Name Role Phone Dane Sullivan DO Primary Care Provider + [phone] Asa Mcnamara MD Unavailable +[phone] Deisi Andrews MD Primary Care Provider [phone] Heber Adorno MD Primary Care Provider Unavailable Dane Sullivan DO Primary Care Provider + [phone] Dane Sullivan DO Primary Care Provider + [phone] Dane Sullivan DO Primary Care Provider + [phone] Dane Sullivan DO Primary Care Provider + [phone] Dane Sullivan DO Primary Care Provider + [phone] Heber Adorno MD Primary Care Provider Unavailable Deisi Andrews MD Primary Care Provider +[phone] Encounter Details Date Type Department Care Team (Late st Contact Info) Description 07/16/2002 Emergency [facility] [place] [address] Heber Adorno MD Social History Tobacco Use Types Packs/Day Years Used Date Smoking Tobacco: Never Assessed Comments Unknown Sex and Gender Information Value Date Recorded Sex Assigned at Female 12/06/2019 3:36 PM INSTRUMENTATION CONTROLS ENGINEER Legal Sex Female 5:20 PM CDT Gender Identity Female 12/06/2019 3:36 PM INSTRUMENTATION CONTROLS ENGINEER Sexual Orientation Straight 12/06/2019 3: 36 PM INSTRUMENTATION CONTROLS ENGINEER documented as of this encounter Plan of Treatment Not on file documented as of this encounter Visit Diagnoses Not on filedocumented in this encounter Care Teams Filter Washer Relationship Specialty Start Date End Date Dane Sullivan DO PCP - General FAMILY PRACTICE 05/15/16 02/11/17 Deisi Andrews MD [address] [place] [address] PCP - General FAMILY PRACTICE 02/13/17 03/10/17 [...] - General 06/27/15 09/23/15 Deisi Andrews MD [address] [place] [address] [place] [address] PCP - General FAMILY PRACTICE 06/15/17 10/14/19 Asa Mcnamara MD [facility]. [facility] [address] [place] [address] [place] Precision Assembly Inspector CARDIOVASCULAR DISEASE 05/15/16 documented as of this encounter
--- OUTSIDE RECORDS SUMMARY | 2024-11-12 05:48 | XMS_ITS | Encounter Summary ---
Author Organization [facility] Address [address] [place] [address] Phone Care Team Providers Care Economics Faculty Member Name Role Phone Olu Nieto APRN, SALES RESEARCH ANALYST Primary Care Provider Encounter Details Date Type Department Care Team (Late st Contact Info) Description 09/02/2020 Telephone [facility] [address] [place] [address] Martir Ventura, DO 3 [facility] [address] [place] [address] Social History Tobacco Use Types Packs/Day Years [...] filedocumented in this encounter Care Teams Economics Faculty Member Relationship Specialty Start Date End Date Olu Nieto, MEI, SALES RESEARCH ANALYST [address] [place] [address] PCP - General Certified Nurse Practitioner 11/02/18 documented as of this encounter
--- OUTSIDE RECORDS SUMMARY | 2024-11-12 05:48 | XMS_ITS | Encounter Summary ---
Author Organization [facility] Address [address] [place] [address] Care Team Providers Care Procurement Services Manager Name Role Phone Olu Nieto APRN, CNP Primary Care Provider Encounter Details Date Type Department Care Team (Late st Contact Info) Description 07/02/2021 10:45 AM CDT Rapid Evaluation [facility] of Public Health Community Testing [facility] [address] [place] [address] Social History Tobacco Use Types Packs/Day Years [...] on filedocumented in this encounter Care Teams Procurement Services Manager Relationship Specialty Start Date End Date Olu Nieto APRN, CNP [address] [place] [address] [place] [address] PCP - General Certified Nurse Practitioner 11/02/18 documented as of this encounter
--- OUTSIDE RECORDS SUMMARY | 2024-11-12 05:48 | XMS_ITS | Encounter Summary ---
Author Organization [facility] Address [address] [place] [address] Phone Care Team Providers Care Tug Boat Captain Name Role Phone Olu Nieto APRN, MANAGER ASSURANCE Primary Care Provider Encounter Details Date Type Department Care Team (Late st Contact Info) Description 04/28/2021 Telephone [facility] - Gastroenterology [facility] [address] [place] [address] Martir Ventura, DO [address] [address] Social History Tobacco Use Types Packs/Day Years [...] - 04/28/2021 1:[address] Ventura's prison letter was returned, call pt to update address and mailbox was unable to take messages. documented in this encounter Plan of Treatment Not on file documented as of this encounter Visit Diagnoses Not on filedocumented in this encounter Care Teams Tug Boat Captain Relationship Specialty Start Date End Date Olu Nieot, VOCATIONAL TRAINING TEACHER, MANAGER ASSURANCE [address] [place] [address] PCP - General Certified Nurse Practitioner 11/02/18 documented as of this encounter
--- OUTSIDE RECORDS SUMMARY | 2024-11-12 05:48 | XMS_ITS | Encounter Summary ---
Author Organization [facility] Address [address] [place] [address] Care Team Providers Care Choirmaster Name Role Phone Olu Nieto APRN, ELECTROENCEPHALOGRAPHIC TECHNOLOGIST Primary Care Provider Encounter Details Date Type Department Care Team (Late st Contact Info) Description 07/02/2021 Lab Requisition [facility] of Public Health Community Testing [facility] [address] [place], [place] [id number] Yovany Sheriff MD [address] [place] [address] [place] [address] Social History Tobacco Use Types [...] on filedocumented in this encounter Care Teams Choirmaster Relationship Specialty Start Date End Date Olu Nieto APRN, ELECTROENCEPHALOGRAPHIC TECHNOLOGIST [address] [place] [address] [place] [address] PCP - General Certified Nurse Practitioner 11/02/18 documented as of this encounter
--- OUTSIDE RECORDS SUMMARY | 2024-11-12 05:48 | XMS_ITS | Clinical Summary ---
Author Organization [facility] Address [address] [place], [facility] [address] [place] [address] Phone Care Team Providers Care General Assignment Reporter Name Role Phone Olu Nieto APRN, ACTION INSTALLER Primary Care Provider Allergies Active Allergy Reactions [...] Maintenance Insurance MEDICAID [facility] [employer] [address] [place] [id number] Care Teams General Assignment Reporter Relationship Specialty Start Date End Date Olu Nieto, LODE MINER, ACTION INSTALLER [address] [place] [address] PCP - General Certified Nurse Practitioner 11/02/18
--- OUTSIDE RECORDS SUMMARY | 2024-11-12 05:48 | XMS_ITS | Encounter Summary ---
Author Organization [facility] Address [address] [place] [address] Phone Care Team Providers Care Television Operator Name Role Phone Olu Nieto APRN, HOME DEMONSTRATOR Primary Care Provider Encounter Details Date Type Department Care Team (Late st Contact Info) Description 07/02/2020 Telephone [facility] - Gastroenterology [facility] [address] [place] [address] Martir Ventura, DO 3 [facility] [address] [place] [address] Social History Tobacco Use Types Packs/Day Years [...] on filedocumented in this encounter Care Teams Television Operator Relationship Specialty Start Date End Date Olu Nieto APRN, HOME DEMONSTRATOR [address] [place] [address] PCP - General Certified Nurse Practitioner 11/02/18 documented as of this encounter
--- OUTSIDE RECORDS SUMMARY | 2024-11-12 05:49 | XMS_ITS | Encounter Summary ---
Author Organization [facility] Address [address] [place] [address] Care Team Providers Care Paper Cleaner Name Role Phone Provider, Abstract Primary Care Provider Unavail able Encounter Details Date Type Department Care Team (Late st Contact Info) Description 04/03/2019 Orders Only [facility] Oncology and Hematology - [place] [address] [address] Provider, Abstract NO ADDRESS ON [...] filedocumented in this encounter Care Teams Paper Cleaner Relationship Specialty Start Date End Date Provider, Abstract NO ADDRESS ON FILE PCP - General 03/24/19 documented as of this encounter
--- OUTSIDE RECORDS SUMMARY | 2024-11-12 05:49 | XMS_ITS | Clinical Summary ---
Author Organization [facility] [address] [facility] Address [address] [place] [address] Care Team Providers Care Epic Manager Name Role Phone Deisi Andrews MD Primary Care Provider + Allergies Active Allergy Reactions Criticality Noted Date Comments Haloperidol Other (See comments) Low 04/13/2023 Facial drooping Penicillins Hives High Reaction: Hives, Risperidone Other (See comments) Low 04/13/2023 Dry mouth Yeyrhqb-Evq-Gyf Reductase Inhibitors Muscle pain Medium 08/27/2023 Pt [...] 01/21/2023 04/13/2023 Coronary artery disease invo lving [place] coronary artery of [place] heart without angina pectoris 10/24/2020 04/13/2023 Anxiety [...] 04/13/20232023 Surgical History Surgery Date Site/Laterality Comments [place] CHOLECYSTECTOMY Cholecystectomy - (Added by TW Conv) [place] DELIVERY ONLY Section - (Added by TW Conv) [place] LIG/TRNSXJ FLP TUBE ABDL/ VAG APPR UNI/BI Tubal Ligation - (Added by TW Conv) OTHER SURGICAL HISTORY 01/17/2024 bladder procedure at [facility] Medical History Medical History Date Comments Personal [...] History Relation Name Comments Diabetes [facility] [...] often do you attend chur ch or anabaptist services? 1 to 4 times per year 04/14/2023 Do you belong to any clubs o r organizations such as holiness groups, unions, fraternal or athletic groups, or [...] on file Legal Sex Female 7:48 PM MANAGER ARCHITECTURAL Gender Identity Not on file Sexual Orientation Not on file Obstetrics History Last Filed Vital Signs Vital Sign Reading Time Taken Comments Blood Pressure 112/64 01/20/2024 8:27 AM MANAGER ARCHITECTURAL Pulse 67 01/20/2024 8:27 AM MANAGER ARCHITECTURAL Temperature 36.3 ??C (97.3 ??F) 04/14/2023 1 1:23 AM CDT Respiratory Rate 16 12/16/2023 8:10 AM MANAGER ARCHITECTURAL Oxygen Saturation 97% 01/20/2024 8:27 AM MANAGER ARCHITECTURAL Inhaled Oxygen Concentration - - Weight 81.6 kg (179 lb 12.8 oz) 01/20/2024 8:27 AM MANAGER ARCHITECTURAL Height 160 cm (5' 3 ) 01/20/2024 8:27 AM MANAGER ARCHITECTURAL Body Mass Index 31.85 01/20/2024 8:27 AM MANAGER ARCHITECTURAL Plan of Treatment Health Maintenance Due Date [...] 05/27/2021, 01/31/2019 Medical Devices Implanted Type Area Sonar Subsystem Equipment Operator Device Identifier Shelf Expiration Date Model / Serial / Lot Stent Bilateral: Leg Procedures Procedure Name Priority Date/Time Associated Diagnosis Comments POCT LIPID PANEL Routine 01/20/2024 9:29 AM MANAGER ARCHITECTURAL Coronary artery disease involving [place] coronary artery of [place] heart without angina pectoris EGFR STAT 04/13/2023 11:30 AM CDT from Last 3 Months or Most Recently Relevant to Health Maintenance Results * POCT lipid panel (01/20/2024 9:29 AM MANAGER ARCHITECTURAL) Cholesterol, POC 236 mg/dL Comment:GLU = 134 HDL, POC 38 mg/dL Triglycerides, POC 231 mg/dL LDL Cholesterol POC 152 mg/dL Chol/HDL Ratio, POC 4.0 Non-HDL Cholesterol, POC 198 mg/dL Cholesterol Total, POC 236 mg/dL Capillary blood 01/20/2024 9 :29 AM MANAGER ARCHITECTURAL us Ed Blevins MD POINT OF CARE TEST ORDER JENNIFER Final Result * eGFR (04/13/2023 11:30 AM CDT) eGFR 78 mL/min/1. 73 m2 [facility] Comment: Interpretive Data Reference Interval Normal ?>/= [...] ORDERABLES Fin al Result Performing Organization Address City/State/[facility] Co de Phone Number [facility] [address] [facility] [place] [address] from Last 3 Months or Most Recently Relevant to Health Maintenance Insurance [facility] Advance Directives For more information, please contact: [phone] * Full Code (Latest Code Status on File) Date Activated Date Inactivated Comments 04/13/2023 6:57 PM 04/14/2023 5:30 PM Care Teams Epic Manager Relationship Specialty Start Date End Date Deisi Andrews MD [address] [place] [address] [address] [place] [address] PCP - General Family Medicine 04/14/23
--- OUTSIDE RECORDS SUMMARY | 2024-11-12 05:49 | XMS_ITS | Encounter Summary ---
Author Organization [facility] Address [address] [place] [address] Care Team Providers Care Newspaper Or Periodical Editor Name Role Phone Provider, Abstract Primary Care Provider Unavail able Reason for Visit * Reason Comments Establish Care Encounter Details Date Type Department Care Team (Late st Contact Info) Description 04/05/2019 2:45 PM CDT Office Visit [facility] Oncology and Hematology - [place] [address] [facility] [address] [place] [address] Juan Ricardo MD [address] [facility] [address] [place] [address] False vocal cord lesion (Primary [...] Measurable Disease ? Reason for Visit Rody aZidi is a 58 y.o. female who was [...] tablet Take 30 mg by mouth daily filter tank tender helper. ??? 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 CC:BRIANA Nair? 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
--- OUTSIDE RECORDS SUMMARY | 2024-11-12 05:49 | XMS_ITS | Referral Summary ---
Author Organization [facility] [address] [facility] Address [address] [place] [address] Care Team Providers Care Director Network Development Name Role Phone Deisi Andrews MD Primary Care Provider + Allergies Active Allergy Reactions Criticality Noted Date Comments Haloperidol Other (See comments) Low 04/13/2023 Facial drooping Penicillins Hives High Reaction: Hives, Risperidone Other (See comments) Low 04/13/2023 Dry mouth Asbmjkn-Ymo-Ctq Reductase Inhibitors Muscle pain Medium 08/27/2023 Pt [...] 01/21/2023 04/13/2023 Coronary artery disease invo lving [place] coronary artery of [place] heart without angina pectoris 10/24/2020 04/13/2023 Anxiety [...] How often do you attend chur or rastafari services? 1 to 4 times per year 04/14/2023 Do you belong to any clubs o r organizations such as cheondoism groups, unions, fraternal or athletic groups, or [...] on file Legal Sex Female 7:48 PM TEMPLATE STORAGE CLERK Gender Identity Not on file Sexual Orientation Not on file Last Filed Vital Signs Vital Sign Reading Time Taken Comments Blood Pressure 112/64 01/20/2024 8:27 AM TEMPLATE STORAGE CLERK Pulse 67 01/20/2024 8:27 AM TEMPLATE STORAGE CLERK Temperature 36.3 ??C (97.3 ??F) 04/14/2023 1 1:23 AM CDT Respiratory Rate 16 12/16/2023 8:10 AM TEMPLATE STORAGE CLERK Oxygen Saturation 97% 01/20/2024 8:27 AM TEMPLATE STORAGE CLERK Inhaled Oxygen Concentration - - Weight 81.6 kg (179 lb 12.8 oz) 01/20/2024 8:27 AM TEMPLATE STORAGE CLERK Height 160 cm (5' 3 ) 01/20/2024 8:27 AM TEMPLATE STORAGE CLERK Body Mass Index 31.85 01/20/2024 8:27 AM TEMPLATE STORAGE CLERK Plan of Treatment Not on file Medical Devices Implanted Type Area Branch Lead Device Identifier Shelf Expiration Date Model / Serial / Lot Stent Bilateral: Leg Procedures Procedure Name Priority Date/Time Associated Diagnosis Comments POCT LIPID PANEL Routine 01/20/2024 9:29 AM TEMPLATE STORAGE CLERK Coronary artery disease involving [place] coronary artery of [place] heart without angina pectoris EGFR STAT 04/13/2023 11:30 AM CDT from Last 3 Months or Most Recently Relevant to Health Maintenance Results * POCT lipid panel (01/20/2024 9:29 AM TEMPLATE STORAGE CLERK) Cholesterol, POC 236 mg/dL Comment:GLU = 134 HDL, POC 38 mg/dL Triglycerides, POC 231 mg/dL LDL Cholesterol POC 152 mg/dL Chol/HDL Ratio, POC 4.0 Non-HDL Cholesterol, POC 198 mg/dL Cholesterol Total, POC 236 mg/dL Capillary blood 01/20/2024 9 :29 AM TEMPLATE STORAGE CLERK Ed Blevins MD POINT OF CARE TEST ORDER JENNIFER Final Result * eGFR (04/13/2023 11:30 AM CDT) eGFR 78 mL/min/1. 73 m2 [facility] Comment: Interpretive Data Reference Interval Normal [...] NP LAB BLOOD ORDERABLES Fin al Result [facility] [address] [facility] Department [place] [address] from Last 3 Months or Most Recently Relevant to Health Maintenance Insurance [facility] Advance Directives For more information, please contact: [phone] * Full Code (Latest Code Status on File) Date Activated Date Inactivated Comments 04/13/2023 6:57 PM 04/14/2023 5:30 PM Care Teams Director Network Development Relationship Specialty Start Date End Date Deisi Andrews MD [address] [place] [address] [address] [place] [address] PCP - General Family Medicine 04/14/23
--- OUTSIDE RECORDS SUMMARY | 2024-11-12 05:49 | XMS_ITS | Clinical Summary ---
Author Organization [facility] Address [address] [place] [address] Care Team Providers Care Bookmobile Driver Name Role Phone Provider, Abstract Primary Care [...] tablet Take 30 mg by mouth daily general education instructor. Active losartan (COZAAR) 100 mg tablet Take [...] or Tdap) 05/27/2031 05/27/2021, 01/31/2019 Care Teams Bookmobile Driver Relationship Specialty Start Date End Date Provider, Abstract NO ADDRESS ON FILE PCP - General 03/24/19
--- OUTSIDE RECORDS SUMMARY | 2024-11-12 05:49 | XMS_ITS | Encounter Summary ---
Author Organization [facility] Address [address] [place] [address] Care Team Providers Care Customer Experience Manager Name Role Phone Provider, Abstract Primary Care Provider Unavail able Encounter Details Date Type Department Care Team (Late st Contact Info) Description 03/24/2019 Orders Only [facility] Oncology and Hematology - [place] [address] [address] Provider, Abstract NO ADDRESS ON [...] on filedocumented in this encounter Care Teams Customer Experience Manager Relationship Specialty Start Date End Date Provider, Abstract NO ADDRESS ON FILE PCP - General 03/24/19 documented as of this encounter
--- OUTSIDE RECORDS SUMMARY | 2024-11-12 05:49 | XMS_ITS | Continuity of Care Document ---
Author Organization [facility] Address [address] [place] [address] [place] [address] Phone Care Team Providers Care Palliative Care Nurse Practitioner Name Role Phone William Garay MD Unavailable Unavailable Allergies, Adverse Reactions, Alerts Substance Reaction Status Criticality risperidone Active No Information KETOROLAC TROMETHAMINE Active No In formation penicillin G Active No Information Medications Medication Instructions Dosage Effective Dates (start - stop) Status Comments Cresson 10 mg-325 mg tablet take 1 by Oral route 3 times every day 1 - Active avoid driving or operate machines pravastatin 40 mg tablet take 1 tablet by oral route every day 40 MG - Active metformin 500 mg tablet take 1 tablet by oral route 2 times every day with morning and evening meals 500 MG - Active Atrovent HFA 17 mcg/actuation aerosol inhaler inhale 2 puff by inhalation route 4 times every day 34 MCG - Active Qvar 40 mcg/actuation Metered Aerosol oral inhaler inhale 1 puff by inhalation route 2 times every day - Active Ventolin HFA 90 mcg/actuation aerosol inhaler inhale 2 puff by inhalation route every 4 - 6 hours as needed - Active omeprazole 20 mg capsule,delayed release [...] Diagnoses Date Provider Providers Copied on Encounter [facility], [address]as, [place], [address], [place] tel:[phone] [facility] [place] No Information 5 Jarrod Thomas. [address], [address], [place], [address]. tel:[phone] Referring Provider: William Garay, [address], [place], [address]. tel:[phone] OFFICE/OUTPA TIENT VISIT, [facility], [address], [place], [address], [place] tel:[phone] [facility] [place] PRES (chief complaint) HLP (chief complaint) back pain (chief complaint) Anxiety (chief complaint) Dietary surveillance and counselingOther encephalopathyBack painProteinuria 5 Jarrod Thomas. [address], [address], [place], [address]. tel:[phone] Referring Provider: William Garay, [address], [place], [address]. tel:[phone] [facility] [place], [address], [place], [address], [place] tel:[phone] [facility] [place] No Information 5 Jarrod Thomas. [address], [address], [place], [address]. tel:[phone] OFFICE/OUTPA TIENT VISIT, [facility], [address], [place], [address], [place] tel:[phone] [facility] [place] chronic pain (chief complaint) DM (chief complaint) CVA (chief complaint) Dietary surveillance and counselingAsthmaCVA , AcuteGERDLumbago 5 Jarrod Thomas. [address], [address], [place], [address]. tel:[phone] Referring Provider: Maurizio [address], [place], [address]. tel:[phone] OFFICE/OUTPA TIENT VISIT, [facility], [address], [place], [address], [place] tel:[phone] [facility] [place] HLP (chief complaint) GERD (chief complaint) DM (chief complaint) CVA (chief complaint) CVA, AcuteDiabetes Mellitus, Adult Onset, UncontrolledOther and unspecified hyperlipidemiaGERDD ietary surveillance and counseling 5 Jarrod Thomas. [address], [address], [place], [address]. tel:[phone] Referring Provider: Maurizio [address], [place], [address]. tel:[phone] OFFICE/OUTPA TIENT VISIT, [facility], [address], [place], [address], tel:[phone] [facility] [place] leg pain (chief complaint) chronic pain (chief complaint) GERD (chief complaint) HLP (chief complaint) headache (chief complaint) Dietary surveillance and counselingPain in limbOther and unspecified hyperlipidemiaHeada cheGERD Jan- 0- 5 Jarrod Thomas. [address], [address], [place], [address]. [phone] Referring Provider: Maur[address], [place], [address]. tel:[phone] OFFICE/OUTPA TIENT VISIT, [facility], [address], [place], [address], [place] tel:[phone] [facility] [place] GERD (chief complaint) chronic pain (chief complaint) COPD (chief complaint) Dietary surveillance and counselingGERDLumba goCOPDOpioid type dependence, unspecified use 5 Jarrod Thomas. [address], [place], [address]. tel:[phone] Referring Provider: [address], [place], [address]. tel:[phone] [facility] [place], [address], [place], [address], [place] tel:[phone] [facility] [place] No Information 5 Jarrod Thomas. [address], [address], [place], [address]. tel:[phone] OFFICE/OUTPA TIENT VISIT, [facility], [address], [place], [address], tel:[phone] [facility] [place] HLP (chief complaint) chronic pain (chief complaint) HTN (chief complaint) anxiety (chief complaint) Dietary surveillance and counselingCervicalg iaOther and unspecified hyperlipidemiaHyper tension, UnspecifiedGenerali zed anxiety disorder 5 Jarrod Thomas. [address], [place], [address]. tel:[phone] Referring Provider: William Garay, [address], [place], [address]. tel:[phone] OFFICE/OUTPA TIENT VISIT, [facility], [address], [place], [address], tel:[phone] [facility] [place] HLP (chief complaint) chest pain (chief complaint) GERD (chief complaint) HTN (chief complaint) Chest Pain, UnspecifiedBody Mass Index 38.0-38.9, adultHypertension, UnspecifiedGERD 4 Jarrod Thomas. [address], [place], [facility]. [phone] Referring Provider: Mauriz[address], [place], [address]. tel:[phone] OFFICE/OUTPA TIENT VISIT, [facility], [address], [place], [address], [place] tel:[phone] [facility] [place] chornic pain (chief complaint) HLP (chief complaint) chest pain (chief complaint) Dietary surveillance and counselingChest Pain, UnspecifiedAsthmaPa in in joint involving lower leg 4 Jarrod Thomas. [address], [place], [address]. tel:[phone] Referring Provider: Maur[address], [place], [facility]. tel:[phone] OFFICE/OUTPA TIENT VISIT, [facility], [address], [place], [address], [place] tel:[phone] [facility] [place] chronic pain (chief complaint) HLP (chief complaint) knee pain (chief complaint) sinus (chief complaint) Dietary surveillance and counselingCHRONIC PAIN NECOther and unspecified hyperlipidemiaPain in joint involving lower legSinusitis, Acute 4 Jarrod Thomas. [address], [place], [address]. tel:[phone] Referring Provider: William Garay, [address], [place], [address]. tel:[phone] OFFICE/OUTPA TIENT VISIT, [facility], [address], [place], [address], [place] tel:[phone] [facility] [place] sick (chief complaint) HLP (chief complaint) chornic pain (chief complaint) Dietary surveillance and counselingViral Infection, UnspecifiedOther and unspecified hyperlipidemiaLumba 4 Jarrod Thomas. [address], [place], [address]. tel:[phone] Referring Provider: [address], [place], [address]. tel:[phone] OFFICE/OUTPA TIENT VISIT, [facility], [address], [place], [address], [place] tel:[phone] [facility] [place] HLP (chief complaint) Hyperglyce adi (chief complaint) chornic pain (chief complaint) asthma (chief complaint) Dietary surveillance and counselingOther and unspecified hyperlipidemiaMetab olic SyndromeLumbagoAsth ma 4 Jarrod Thomas. [address], [place], [address]. tel:[phone] Referring Provider: William Garay, [address], [place], [address]. tel:[phone] OFFICE/OUTPA TIENT VISIT, [facility], [address], [place], [address], [place] tel:[phone] [facility] [place] asthma (chief complaint) GERD (chief complaint) HLP (chief complaint) chornic pain (chief complaint) Dietary surveillance and counselingAsthmaGER DOther and unspecified hyperlipidemiaLumba 4 Jarrod Thomas. [address], [place], [address]. tel:[phone] Referring Provider: William Garay, [address], [place], [address]. tel:[phone] PREV VISIT, EST, AGE 40-64 [facility] [place], [address], [place], [address], [place] tel:[phone] [facility] [place] Physical (chief complaint) Dietary surveillance and counselingRoutine Medical ExamRoutine Medical Exam 4 Jarrod Thomas. [address], [place], [address]. tel:[phone] Referring Provider: William Garay, [address], [place], [address]. tel:[phone] OFFICE/OUTPA TIENT VISIT, [facility], [address], [place], [address], [place] tel:[phone] [facility] [place] carpal tunnel (chief complaint) chornic pain (chief complaint) HLP (chief complaint) asthma (chief complaint) Dietary surveillance and counselingCarpal Tunnel SyndromeAsthmaOther and unspecified hyperlipidemiaCHRON IC PAIN NEC 4 Jarrod Thomas. [address], [place], [address]. [phone] Referring Provider: William Garay, [address], [place], [address]. tel:[phone] OFFICE/OUTPA TIENT VISIT, EST [facility] [place], [address], [place], [address], [place] tel:[phone] [facility] [place] chornic pain (chief complaint) numbness (chief complaint) HLP (chief complaint) asthma (chief complaint) Disturbance of skin sensationLumbagoPVD with ClaudicationAsthma 4 Jarrod Thomas. [address], [place], [address]. tel:[phone] Referring Provider: William Garay, [address], [place], [address]. tel:[phone] OFFICE/OUTPA TIENT VISIT, [facility], [address], [place], [address], [place] tel:[phone] [facility] sinus (chief complaint) Dietary surveillance and counselingSinusitis , Acute Feb- 4 Jarrod Thomas. [address], [place], [address]. tel:[phone] Referring Provider: William Garay, [address], [place], [address]. tel:[phone] OFFICE/OUTPA TIENT VISIT, [facility], [address], [place], [address], [place] tel:[phone] [facility] [place] chronic pain (chief complaint) HLP (chief complaint) Dietary surveillance and counselingLumbagoPa in in joint involving lower legOther and unspecified hyperlipidemia 4 Jarrod Thomas. [address], [place], [address]. tel:[phone] Referring Provider: William Garay, [address], [place], [address]. tel:[phone] OFFICE/OUTPA TIENT VISIT, [facility], [address], [place], [address], [place] tel:[phone] [facility] [place] chronic pain (chief complaint) HLP (chief complaint) HTN (chief complaint) Dietary surveillance and counselingHypertens ion, UnspecifiedOther and unspecified hyperlipidemiaCHRON IC PAIN NEC Jan- 4 Jarrod Thomas. [address], [place], [address]. tel:[phone] Referring Provider: William Garay [address], [place], [address]. tel:[phone] OFFICE/OUTPA TIENT VISIT, [facility], [address], [place], [address], [place] tel:[phone] [facility] [place] chronic pain (chief complaint) HLP (chief complaint) tobacco (chief complaint) ear infection (chief complaint) Dietary surveillance and counselingCHRONIC PAIN NECOther and unspecified hyperlipidemiaUnspe cified otitis media 4 Jarrod Thomas. [address], [place], [address]. [phone] Referring Provider: [address], [place], [address]. tel:[phone] OFFICE/OUTPA TIENT VISIT, [facility], [address], [place], [address], [phone] [facility] [place] chronic pain (chief complaint) GERD (chief complaint) HLP (chief complaint) Dietary surveillance and counselingCervicalg iaHypertension, UnspecifiedOther and unspecified hyperlipidemiaGERD 4 Jarrod Thomas. [address], [place], [address]. [phone] Referring Provider: Maurizio [address], [place], [place], [facility]. tel:[phone] OFFICE/OUTPA TIENT VISIT, [facility], [address], [place], [address], [place] [phone] [facility] [place] HLP (chief complaint) HTN (chief complaint) Chronic pain (chief complaint) anxiety (chief complaint) GERD (chief complaint) Dietary surveillance and counselingLumbagoOt her and unspecified hyperlipidemiaGERD 3 Jarrod Thomas. [address], [place], [address]. [phone] Referring Provider: [address], [place], [address]. tel:[phone] OFFICE/OUTPA TIENT VISIT, [facility], [address], [place], [address], [place] tel:[phone] [facility] [place] sick (chief complaint) hematuria (chief complaint) Dietary surveillance and counselingBronchiti s, AcuteOBSTRUCTIVE CHRONIC BRONCHITIS, WITH (ACUTE) EXACERBATIONViral Infection, UnspecifiedHEMATURI A NOS 3 Jarrod Thomas. [address], [place], [address]. tel: [phone] Referring Provider: William Garay, [address], [place], [address]. tel:[phone] OFFICE/OUTPA TIENT VISIT, [facility], [address], [place], [address], tel:[phone] [facility] [place] chronic pain (chief complaint) HTN (chief complaint) Dietary surveillance and counselingCHRONIC PAIN NECHypertension, Unspecified 3 Jarrod Thomas. [address], [place], [address]. [phone] Referring Provider: William Garay [address], [place], [address]. tel:[phone] OFFICE/OUTPA TIENT VISIT, [facility], [address], [place], [address], tel:[phone] [facility] [place] chronic pain (chief complaint) ear pain (chief complaint) Dietary surveillance and counselingLumbagoHy pertension, UnspecifiedOtalgia, unspecified 3 Jarrod Thomas. [address], [place], [address]. [phone] Referring Provider: William Garay, [address], [place], [address]. tel:[phone] OFFICE/OUTPA TIENT VISIT, [facility], [address], [place], [address], [place] tel:[phone] [facility] [place] chronic pain (chief complaint) HLP (chief complaint) asthma (chief complaint) LumbagoAsthmaHypert ension, UnspecifiedOther and unspecified hyperlipidemiaDieta ry surveillance and counseling Sep2 0 3 Jarrod Thomas. [address], [place], [address]. [phone] Referring Provider: William Garay, [address], [place], [address]. tel:[phone] OFFICE/OUTPA TIENT VISIT, [facility], [address], [place], [address], tel:[phone] [facility] [place] chronic pain (chief complaint) otalgia (chief complaint) HLP (chief complaint) rash (chief complaint) Dietary surveillance and counselingCHRONIC PAIN NECOtalgia, unspecifiedHyperten surya, UnspecifiedScabies 3 Jarrod Thomas. [address], [place], [address]. tel:[phone] Referring Provider: William Garay, [address], [place], [address]. tel:[phone] OFFICE/OUTPA TIENT VISIT, [facility], [address], [place], [address], tel:[phone] [facility] [place] chronic pain (chief complaint) lung nodule (chief complaint) HLP (chief complaint) ear pain (chief complaint) Dietary surveillance and counselingCHRONIC PAIN NECAsthmaOtalgia, unspecified 3 Jarrod Thomas. [address], [place], [address]. tel:[phone] Referring Provider: Maur[address], [place], [address]. tel:[phone] OFFICE/OUTPA TIENT VISIT, [facility], [address], [place], [address], [place] tel:[phone] [facility] [place] chronic pain (chief complaint) epipen (chief complaint) Dietary surveillance and counselingCHRONIC PAIN NECLumbagoCervicalg ia 3 Jarrod Thomas. [address], [place], [address]. tel:[phone] Referring Provider: Maur[address]io [address], [place], [address]. tel:[phone] OFFICE/OUTPA TIENT VISIT, [facility], [address], [place], [address], [place] tel:[phone] [facility] [place] HLP (chief complaint) vitamin d (chief complaint) HTN (chief complaint) lung nodule (chief complaint) Dietary surveillance and counselingOther and unspecified hyperlipidemiaUnspe cified vitamin d deficiencyOther diseases of lung, not elsewhere classified 3 Jarrod Thomas. [address], [place], [address]. tel:[phone] Referring Provider: William Garay, [address], [place], [address]. tel:[phone] PREV VISIT, NEW, AGE 40-64 [facility], [address], [place], [place], [facility], tel:[phone] [facility] [place] PHysical (chief complaint) Dietary surveillance and counselingRoutine Medical ExamRoutine Medical Exam 3 Jarrod Thomas. [address], [place], [address]. tel:[phone] Referring Provider: William Garay [address], [place], [address]. tel:[phone] Family History Family Member Type Diagnosis Age At Onset Sister Problem (finding) thyroid Mother Problem (finding) bleeding stomach ulcer Father Problem (finding) Unknown Disease Payers Payer name Insurance type Covered green party ID Authoriza tion(s) No Information Social [...] Date Complaint History Of Prese nt Illness PRES Pt underwent lef t endarectomy recently and she suffered posterior reversible encephalopathy syndrome. No CVA Pt was admited to hospital for several days. Pt denies any headache now. Pt is seeing Dr. Gutierrez and also neurology .Pt feels fine now HLP Pt has HLP Pt ta kse pravastatin. Pt denies any myalgia back pain Additional infor mation: Pt has chornic LBP pt denies any loss of bowel or bladder cotnrol. Anxiety Additional infor mation: Pt has chornic anxiety and depression. Pt tkaes prozac and joonx from psychiatry. Pt doing ok. Instructions Date Instruction Additional Infor mation Prescribed activity/ exercise education Related to Dietary surveillance and counseling Special diet education Related t o Dietary surveillance and counseling Physical activity counseling [...]
--- OUTSIDE RECORDS SUMMARY | 2024-11-12 05:49 | XMS_ITS | Encounter Summary ---
Author Organization [facility] Address [address] [place] [address] Care Team Providers Care Section Crews Activities Clerk Name Role Phone Provider, Abstract Primary Care Provider Unavail able Reason for Visit * Reason Comments Follow Up Results Encounter Details Date Type Department Care Team (Late st Contact Info) Description 05/04/2019 1:45 PM CDT Office Visit [facility] Oncology and Hematology - [place] [address] [place] [address] [facility] [address] [place] [address] Juan Ricardo MD [address] [facility] [address] [place] [address] False vocal cord lesion (Primary [...] cords documented in this encounter Care Teams Section Crews Activities Clerk Relationship Specialty Start Date End Date Provider, Abstract NO ADDRESS ON FILE PCP - General 03/24/19 documented as of this encounter
--- OUTSIDE RECORDS SUMMARY | 2024-11-12 05:50 | XMS_ITS | Encounter Summary ---
Author Organization [facility] Address [address] [place] [address] Care Team Providers Care Metal Expediter Name Role Phone Deisi Andrews MD Primary Care Provider + Encounter Details Date Type Department Care Team (Late st Contact Info) Description 11/01/2023 Orders Only [facility] Cardiology [address] [place] [address] Kely Moran NP [address] [place] [address] Social History Tobacco Use Types [...] often do you attend chur ch or roman catholic services? 1 to 4 times per year 04/14/2023 Do you belong to any clubs o r organizations such as adventism groups, unions, fraternal or athletic groups, or [...] on file Legal Sex Female 7:48 PM WEAVING SUPERVISOR Gender Identity Not on file Sexual Orientation Not on file documented as of this encounter Plan of Treatment Not on file documented as of this encounter Procedures Procedure Name Priority Date/Time Associated Diagnosis Comments CARDIOLOGY DOCUMENT SCAN Routine 023 10:07 AM WEAVING SUPERVISOR documented in this encounter Results * Cardiology Document Scan (10/28/2023 10:07 AM WEAVING SUPERVISOR) Anatomical Region Laterality Modality Other Kely Moran TILE MOLDER CV CARDIAC SERVICES PROCEDUR ES Final Result documented in this encounter Visit Diagnoses Not on filedocumented in this encounter Care Teams Metal Expediter Relationship Specialty Start Date End Date Deisi Andrews MD [address] [place] [address] [place] [id number] PCP - General Family Medicine 04/14/23 documented as of this encounter
--- OUTSIDE RECORDS SUMMARY | 2024-11-12 05:50 | XMS_ITS | Encounter Summary ---
Author Organization [facility] Healthcare Address [address] [place] [address] Care Team Providers Care Bar Captain Name Role Phone Deisi Andrews MD Primary Care Provider + Reason for Referral * Consultation (Routine) - Closed Specialty Diagnoses / Procedures Referred By Contac t Referred To Contact Sleep Medicine Diagnoses Paroxysmal atrial fibrillation (CMS/HCC) (HCC) Ramakrishna Edmonds MD [address] [address] Phone: tel: fax: [facility] Sleep Medicine at [address] [place] [address] Phone: tel: fax: Referral ID Status Reason Start Date Expiration Date V isits Requested Visits Authorized [id number] Closed Specialty Services Required 12/16/2023 01/14/2025 1 1 Question Answer Please select the performing region: [facility] [[id number]] Please select the performing department: [facility] SLEEPMED [facility] [[id number]] # of visits: 1 ASSEMBLER Reason for Visit * Reason Comments Atrial Fibrillation New Patient Encounter Details Date Type Department Care Team (Late st Contact Info) Description 12/16/2023 8:30 AM TIRE ASSEMBLER Office Visit [facility] Cardiology at [address] [place] [address] Ramakrishna Edmonds MD [address] [facility] [address], [place] [address] Paroxysmal atrial fibrillation (CMS/HCC) (HCC) [...] How often do you attend chur or methodist services? 1 to 4 times per year 04/14/2023 Do you belong to any clubs o r organizations such as hoahaoism groups, unions, fraternal or athletic groups, or [...] place to sleep or slept in a fdc (including now)? No 04/14/2023 Personal Safety Answer Date Recorded Have you ever been in or are you currently in a harmful physical or emotional relationship or is someone making you feel afraid or unsafe? Denies 04/13/2023 Comments Unknown Sex and Gender Information Value Date Recorded Sex Assigned at Not on file Legal Sex Female 7:48 PM TIRE ASSEMBLER Gender Identity Not on file Sexual Orientation Not on file documented as of this encounter Last Filed Vital Signs Vital Sign Reading Time Taken Comments Blood Pressure 120/82 12/16/2023 8:10 AM TIRE ASSEMBLER Lg Adult Cuff Pulse 80 12/16/2023 8:10 AM TIRE ASSEMBLER Temperature - - Respiratory Rate 16 12/16/2023 8:10 AM TIRE ASSEMBLER Oxygen Saturation - - Inhaled Oxygen Concentration - - Weight 81.6 kg (180 lb) 12/16/2023 8:10 AM TIRE ASSEMBLER Height 160 cm (5' 3 ) 12/16/2023 8:10 AM TIRE ASSEMBLER Body Mass Index 31.89 12/16/2023 8:10 AM TIRE ASSEMBLER documented in this encounter Progress Notes * Ramakrishna Edmonds MD - 12/16/2023 8:30 AM CST Consult Note - Cardiac Electrophysiology Patient Name: Rody aZidi Date of : 1960 Primary Physician: Deisi Andrews MD Referring Physician: Maddy Cummings NP, WGeneva Santoyo MD I had the pleasure of seeing Rody Zaidi in consultation at the [facility]- Cardiology at [place] [facility] Hoist Operator. I have reviewed the pertinent data originating [...] states she recently had a cystoscopy at [facility] and is currently awaiting pathology results. Patient [...] History Past Surgical History: Procedure Laterality Date DE DELIVERY ONLY Section - (Added by TW Conv) DE CHOLECYSTECTOMY Cholecystectomy - (Added by TW Conv) DE LIG/TRNSXJ FLP TUBE ABDL/VAG APPR UNI/BI Tubal [...] Allergies Allergen Reactions Penicillins Hives Reaction: Hives, Bxahjjr-Mng-Ejx Reductase Inhibitors Muscle pain Venom-Honey Bee Swelling [...] imaging is normal. Recommend follow up with industrial hygiene manager. Visit Diagnoses (I48.0) Paroxysmal atrial fibrillation (CMS/HCC) [...] questions or major inaccuracies, please contact us. ASSEMBLER documented in this encounter Plan of [...] therapy documented in this encounter Care Teams Bar Captain Relationship Specialty Start Date End Date Deisi Andrews MD [address] [facility] [address] [place] [address] PCP - General Family Medicine 04/14/23 documented as of this encounter
--- OUTSIDE RECORDS SUMMARY | 2024-11-12 05:50 | XMS_ITS | Encounter Summary ---
Author Organization [facility] Healthcare Address [address] [place] [address] Care Team Providers Care Applied Behavior Specialist Name Role Phone Deisi Andrews MD Primary Care Provider + Reason for Visit * Reason Comments Hospital Follow Up Encounter Details Date Type Department Care Team (Late st Contact Info) Description 11/17/2023 2:30 PM JAVA MOBILE DEVELOPER Office Visit [facility] Cardiology [address] [facility] [address] [place] [address] Kely Moran NP [address] [facility] [address] [place] [address] Paroxysmal atrial fibrillation (CMS/HCC) (HCC) [...] How often do you attend chur or taoist services? 1 to 4 times per year 04/14/2023 Do you belong to any clubs o r organizations such as religious groups, unions, fraternal or athletic groups, or [...] on file Legal Sex Female 7:48 PM JAVA MOBILE DEVELOPER Gender Identity Not on file Sexual Orientation Not on file documented as of this encounter Last Filed Vital Signs Vital Sign Reading Time Taken Comments Blood Pressure 108/78 11/17/2023 2:20 PM JAVA MOBILE DEVELOPER Pulse 108 11/17/2023 2:20 PM JAVA MOBILE DEVELOPER Temperature - - Respiratory Rate - - Oxygen Saturation 96% 11/17/2023 2:20 PM JAVA MOBILE DEVELOPER Inhaled Oxygen Concentration - - Weight 80.7 kg (178 lb) 11/17/2023 2:20 PM JAVA MOBILE DEVELOPER Height 160 cm (5' 3 ) 11/17/2023 2:20 PM JAVA MOBILE DEVELOPER Body Mass Index 31.53 11/17/2023 2:20 PM JAVA MOBILE DEVELOPER documented in this encounter Progress Notes * Kely Moran NP - 11/17/2023 2:30 PM CST [facility] Cardiology [address] [place] [address] Date of Visit: 11/17/2023 Patient ID: Rody [...] Metoprolol 50mg BID. 11/17/2023 Hospital follow-up with OVERAGE SHORTAGE AND DAMAGE CLERK - Rody Zaidi comes to the office [...] Allergies Allergen Reactions Penicillins Hives Reaction: Hives, Aqbxflm-Bck-Csv Reductase Inhibitors Muscle pain Venom-Honey Bee Swelling [...] [facility] of atrial fibrillation with rapid ventricular [...] with plan. Kely LOPEZ- Nurse Practitioner with [facility] This note is dictated and transcribed using [employer] Direct Software. Childhood Teacher variancesmay occur. Despite proofreading, typographical errors may occur. Cosigned by Ed Blevins MD at 11/17/2023 5:22 PM JAVA MOBILE DEVELOPER MOBILE DEVELOPER MOBILE DEVELOPER documented in this encounter Plan of [...] 11/17/2023 added in this encounter Care Teams Applied Behavior Specialist Relationship Specialty Start Date End Date Deisi Andrews MD [address] [place] [address] PCP - General Family Medicine 04/14/23 documented as of this encounter
--- OUTSIDE RECORDS SUMMARY | 2024-11-12 05:50 | XMS_ITS | Encounter Summary ---
Author Organization [facility] Medical Group Address [address] [facility] [address] [place] [address] Care Team Providers Care Ict Programmer Name Role Phone Deisi Andrews MD Primary Care Provider + Encounter Details Date Type Department Care Team (Late st Contact Info) Description 08/10/2023 Orders Only [facility] Cardiology [address] [place] [address] Ed Blevins MD [address] [facility] [address] [place] [address] Social History Tobacco Use Types [...] often do you attend chur ch or mosque services? 1 to 4 times per year 04/14/2023 Do you belong to any clubs o r organizations such as mu-ism groups, unions, fraternal or athletic groups, or [...] place to sleep or slept in a skilled nursing (including now)? No 04/14/2023 Personal Safety Answer Date Recorded Have you ever been in or are you currently in a harmful physical or emotional relationship or is someone making you feel afraid or unsafe? Denies 04/13/2023 Comments Unknown Sex and Gender Information Value Date Recorded Sex Assigned at Not on file Legal Sex Female 7:48 PM MEDICAL TECHNOLOGIST Gender Identity Not on file Sexual [...] on filedocumented in this encounter Care Teams Ict Programmer Relationship Specialty Start Date End Date Deisi Andrews MD [address] [place] [address] [place] [address] PCP - General Family Medicine 04/14/23 documented as of this encounter
--- OUTSIDE RECORDS SUMMARY | 2024-11-12 05:50 | XMS_ITS | Encounter Summary ---
Author Organization [facility] Healthcare Address [address] [place] [address] Care Team Providers Care Strip Presser Name Role Phone Deisi Andrews MD Primary Care Provider + Encounter Details Date Type Department Care Team (Late st Contact Info) Description 03/01/2024 Telephone [facility] Medical [facility] Cardiology [address] [place] [address] Ed Blevins MD [address] [facility] [address] [place] [address] Social History Tobacco Use Types [...] often do you attend chur ch or restorationist services? 1 to 4 times per year 04/14/2023 Do you belong to any clubs o r organizations such as denominational groups, unions, fraternal or athletic groups, or [...] file Legal Sex Female 7:48 PM JAVA APPLICATION DEVELOPER Gender Identity Not on file Sexual Orientation Not on file documented as of this encounter Miscellaneous Notes * Telephone Encounter - Rachel Stroud MA - 03/01/2024 11:29 AM CDT Price GARCIA approved through 02/28/2025. Pharmacy notified. Approval letter scanned in to this encounter. * Telephone Encounter - Rachel Stroud MA - 03/01/2024 10:40 AM CDT Received a fax from Lee Silber for Price GARCIA. Submitted PA via [employer]. Awaiting response. documented in this encounter Plan of Treatment Not on file documented as of this encounter Visit Diagnoses Not on filedocumented in this encounter Care Teams Strip Presser Relationship Specialty Start Date End Date Deisi Andrews MD [address] [address] PCP - General Family Medicine 04/14/23 documented as of this encounter
--- OUTSIDE RECORDS SUMMARY | 2024-11-12 05:50 | XMS_ITS | Encounter Summary ---
Author Organization [facility] Healthcare Address [address] [place] [address] Care Team Providers Care Argon Tester Name Role Phone Deisi Andrews MD Primary Care Provider + Reason for Visit * Diagnostic Imaging (Routine) - Closed Specialty Diagnoses / Procedures Referred By Contac t Referred To Contact Diagnoses Elevated troponin Paroxysmal atrial fibrillation (CMS/HCC) (HCC) Procedures NM MPI SPECT (Rest and/or Stress) Multiple Studies Ed Blevins MD Phone: tel: fax: [facility] Medical Group Referral ID Status Reason Start Date Expiration Date Visits Re quested Visits Authorized [id number] Closed 09/03/2023 09/02/2024 1 1 Encounter Details Date Type Department Care Team (Latest Contact Info) Description 09/16/2023 7:45 AM CDT [address] [facility] Medical [facility] Cardiology [address] [place] [address] Elevated troponin; Paroxysmal atrial fibrillation (CMS/HCC) (HCC) [...] often do you attend chur ch or mormonism services? 1 to 4 times per year [...] place to sleep or slept in a penitentiary (including now)? No 04/14/2023 Personal Safety Answer Date Recorded Have you ever been in or are you currently in a harmful physical or emotional relationship or is someone making you feel afraid or unsafe? Denies 04/13/2023 Comments Unknown Sex and Gender Information Value Date Recorded Sex Assigned at Not on file Legal Sex Female 7:48 PM NURSING TECHN Gender Identity Not on file Sexual Orientation [...] CDT Narrative 09/17/2023 12:[address] [facility] Medical [facility] Cardiology [address] [facility] [address], [place] [address] [address] [facility] [address], [place] [address] P:[phone] P:[phone] MPI Imaging Report Patient Name: RODY CRUZ J : 1960 Study Date: 09/16/2023 7:45:00 AM Gender: F Tech[facility] Location[facility] Provider: ED BLEVINS ?Height(Cm): 160 BSA: Weight(Kg): [...] imaging is normal. Recommend follow up with sleeping car service attendant. Electronically Signed By: Tomer Blevins MD 2023-09-17 12:50:37 CDT Electronically Signed By: Tomer Blevins MD 2023-09-17 12:50:37 CDT Procedure Note Ed Blevins MD - 09/17/2023 [facility] Medical Group Cardiology [address] [facility] [address], [place] [address] [address] [facility] [address], [place] [address] P:[phone] P:[phone] MPI Imaging Report Patient Name: RODY CRZU JPatient ID: [id number] : [id number] Date: 09/16/2023 7:45:00 AM Gender: FAccession #: [id number] Tech: SRINI, CNMTLocation: [place] Ref Provider: DIMMITT, ED Height(Cm): 160 BSA: [...] imaging is normal. Recommend follow up with sleeping car service attendant. Electronically Signed By: Tomer Blevins MD 2023-09-17 [...] millicuries documented in this encounter Care Teams Argon Tester Relationship Specialty Start Date End Date Deisi Andrews MD [address] [place] [address] PCP - General Family Medicine 04/14/23 documented as of this encounter
--- OUTSIDE RECORDS SUMMARY | 2024-11-12 05:50 | XMS_ITS | Encounter Summary ---
Author Organization [facility] Healthcare Address [address] [place] [address] Care Team Providers Care Outside Sales Manager Name Role Phone Deisi Andrews MD Primary Care Provider + Encounter Details Date Type Department Care Team (Late st Contact Info) Description 08/10/2023 Orders Only [facility] Information Management [address] [place] [address] Ed Blevins MD [address] [facility] [address] [place] [address] Social History Tobacco Use Types [...] on file Legal Sex Female 7:48 PM SWAGING MACHINE ADJUSTER Gender Identity Not on file Sexual Orientation [...] Date End Date Deisi Andrews MD [address] [place] [address] [address] [place] [address] PCP - General Family Medicine 04/14/23 documented as of this encounter
--- OUTSIDE RECORDS SUMMARY | 2024-11-12 05:50 | XMS_ITS | Encounter Summary ---
Author Organization [facility] Healthcare Address [address] [place] [address] Care Team Providers Care Driver Merchandiser Name Role Phone Deisi Andrews MD Primary Care Provider + Reason for Visit * Reason Comments Atrial Fibrillation EKG only visit Encounter Details Date Type Department Care Team (Latest Contact Info) Description 11/19/2023 11:00 AM EXHIBITS CURATOR Procedure visit [facility] Medical Group Cardiology [address] [place] [address] Paroxysmal atrial fibrillation (CMS/HCC) (HCC) (Primary Dx) [...] often do you attend chur ch or christian services? 1 to 4 times per year 04/14/2023 Do you belong to any clubs o r organizations such as zoroastrianism groups, unions, fraternal or athletic groups, or [...] on file Legal Sex Female 7:48 PM EXHIBITS CURATOR Gender Identity Not on file Sexual Orientation [...] then given to JOHN Saldivar for review. BITS CURATOR documented in this encounter Miscellaneous Notes * Addendum Note - Amaury Blum MA - 11/19/2023 11:00 AM CSTAddended by: AMAURY BLUM on: 11/22/2023 11:11 AM Modules accepted: Orders BITS CURATOR documented in this encounter Plan of Treatment Not on file documented as of this encounter Procedures Procedure Name Priority Date/Time Associated Diagnosis Comments ECG 12-LEAD Routine 11/19/2023 Paroxysmal atrial fibrillation (CMS/HCC) (HCC) ECG 12-LEAD Routine 11/17/2023 Paroxysmal atrial fibrillation (CMS/HCC) (HCC) documented in this encounter Results * ECG 12 lead (11/19/2023) us Amber Montano LIVESTOCK AUCTIONEER ECG ORDERABLES Final Res ult documented in this encounter Visit Diagnoses Diagnosis Paroxysmal atrial fibrillation (CMS/HCC) (HCC)- Primary Atrial fibrillation documented in this encounter Care Teams Driver Merchandiser Relationship Specialty Start Date End Date Deisi Andrews MD [address] [place] [address] PCP - General Family Medicine 04/14/23 documented as of this encounter
--- OUTSIDE RECORDS SUMMARY | 2024-11-12 05:50 | XMS_ITS | Encounter Summary ---
Author Organization [facility] Healthcare Address [address] [place] [address] Care Team Providers Care Rotogravure Press Operator Name Role Phone Deisi Andrews MD Primary Care Provider + Encounter Details Date Type Department Care Team (Late st Contact Info) Description 11/22/2023 Telephone [facility] Medical Group Cardiology [address] [address] Kely Moran NP [address] [address] Social History Tobacco Use Types [...] any clubs o r organizations such as scientologist groups, unions, fraternal or athletic groups, or [...] place to sleep or slept in a long term (including now)? No 04/14/2023 Personal Safety Answer Date Recorded Have you ever been in or are you currently in a harmful physical or emotional relationship or is someone making you feel afraid or unsafe? Denies 04/13/2023 Comments Unknown Sex and Gender Information Value Date Recorded Sex Assigned at Not on file Legal Sex Female 7:48 PM RANGE MECHANIC Gender Identity Not on file Sexual Orientation Not on file documented as of this encounter Miscellaneous Notes * Telephone Encounter - Brittanie Saunders - 11/22/2023 1:57 PM CST error E MECHANIC documented in this encounter Plan of Treatment Not on file documented as of this encounter Visit Diagnoses Not on filedocumented in this encounter Care Teams Rotogravure Press Operator Relationship Specialty Start Date End Date Deisi Andrews MD [address] [place] [address] [address] PCP - General Family Medicine 04/14/23 documented as of this encounter
--- OUTSIDE RECORDS SUMMARY | 2024-11-12 05:50 | XMS_ITS | Encounter Summary ---
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 Elevated troponin Procedures NM MPI SPECT (Rest and/or Stress) Multiple Studies Ed Blevins MD Phone: tel: fax: Referral ID Status Reason Start Date Expiration Date Visits Re quested Visits Authorized [id number] Closed 08/27/2023 09/25/2024 1 1 Encounter Details Date Type Department Care Team (Latest Contact Info) Description 09/08/2023 9:15 AM CDT Ancillary Procedure [facility] Medical Group Cardiology [address] [place] [address] Mixed diabetic hyperlipidemia associated with type 2 diabetes mellitus (HCC); Paroxysmal atrial fibrillation (CMS/HCC) (HCC); Peripheral arterial disease (HCC); 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 No 04/14/2023 Personal Safety Answer Date Recorded Have you ever been in or are you currently in a harmful physical or emotional relationship or is someone making you feel afraid or unsafe? 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 Elevated troponin documented in this encounter Results * NM MPI SPECT (Rest and/or Stress) Multiple Studies (09/08/2023 10:59 AM CDT) Anatomical Region Laterality Modality Body N/A Nuclear Medicine 09/08/2023 8:18 AM CDT Narrative 09/08/2023 5:02 PM CDT [facility] Medical Group Cardiology [address] [facility] [address], [place] [address] [address] [facility] [address], [place] [address] P:[phone] P:[phone] MPI Imaging Report Patient Name: RODY CRUZ J : 1960 Study Date: 09/08/2023 8:18:32 AM Gender: F Tech: JE MILLIGANMT Location: [place] Ref.Provider: ED BLEVINS Height(Cm): 160 BSA: Weight(Kg): [...] Note Jose A Gaines MD - 09/08/2023 [facility] Medical Group Cardiology [address] [facility] [address], [place] [address] [address] [facility] [address], [place] [address] P:[phone] P:[phone] MPI Imaging Report Patient Name: RODY CRUZ JPatient ID: [id number] : [id number] Date: 09/08/2023 8:18:32 AM Gender: FAccession #: [id number] Tech: , [facility] [place] Ref.Provider: Mickie BLEVINSight(Cm): 160 BSA: Weight(Kg): 83.9 [...] 17:02:44 CDT Electronically Signed By: Jose A Gainse MD 2023-09-08 17:02:44 CDT CC: CC: Ed [facility]ins [facility] Final Result documented in this encounter Visit Diagnoses Diagnosis Mixed diabetic hyperlipidemia associated with type 2 diabetes mellitus (HCC) Paroxysmal atrial fibrillation (CMS/HCC) (HCC) Atrial fibrillation Peripheral arterial disease (HCC) Unspecified peripheral vascular disease 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
--- OUTSIDE RECORDS SUMMARY | 2024-11-12 05:50 | XMS_ITS | Encounter Summary ---
Author Organization [facility] Healthcare Address [address] [place] [address] Care Team Providers Care Inspector Floor Name Role Phone Deisi Andrews MD Primary Care Provider + Reason for Visit * Reason Comments Follow-up 1 mo f/u Atrial Fibrillation Encounter Details Date Type Department Care Team (Latest Contact Info) Description 01/20/2024 8:30 AM ALL PURPOSE CLERK Office Visit [facility] Medical Group Cardiology [address] [place] [address] Ed Blevisn MD [id number] [place] [address] Coronary artery disease involving assiniboine and gros ventre tribes coronary artery of assiniboine and gros ventre tribes heart without angina pectoris (Primary Dx); Paroxysmal [...] any clubs o r organizations such as jainism groups, unions, fraternal or athletic groups, or [...] on file Legal Sex Female 7:48 PM ALL PURPOSE CLERK Gender Identity Not on file Sexual Orientation Not on file documented as of this encounter Last Filed Vital Signs Vital Sign Reading Time Taken Comments Blood Pressure 112/64 01/20/2024 8:27 AM ALL PURPOSE CLERK Pulse 67 01/20/2024 8:27 AM ALL PURPOSE CLERK Temperature - - Respiratory Rate - - Oxygen Saturation 97% 01/20/2024 8:27 AM ALL PURPOSE CLERK Inhaled Oxygen Concentration - - Weight 81.6 kg (179 lb 12.8 oz) 01/20/2024 8:27 AM ALL PURPOSE CLERK Height 160 cm (5' 3 ) 01/20/2024 8:27 AM ALL PURPOSE CLERK Body Mass Index 31.85 01/20/2024 8:27 AM ALL PURPOSE CLERK documented in this encounter Progress Notes * Ed Blevins MD - 01/20/2024 8:30 AM CST Images from the original note were not included. DATE OF VISIT: 01/20/2024 CHIEF COMPLAINT Chief Complaint Patient presents with Follow-up 1 mo f/u Atrial Fibrillation ASSESSMENT Diagnoses and all orders for this visit: Coronary artery disease involving assiniboine and gros ventre tribes coronary artery of assiniboine and gros ventre tribes heart without angina pectoris (Primary) Paroxysmal atrial [...] Allergies Allergen Reactions Penicillins Hives Reaction: Hives, Qrkoddm-Nwo-Ooh Reductase Inhibitors Muscle pain Venom-Honey Bee Swelling [...] Total, POC 206 mg/dL 08/07/2023 2D echo [facility]: EF 60 65% grade 1 diastolic dysfunction mild MR/TR, normal left atrial size and LV wall thickness 09/17/23 Lexiscan: CONCLUSIONS: No diagnostic ST changes. Global left ventricular function is normal. Left ventricular ejection fraction is 69 %. Myocardial perfusion imaging is normal. Recommend follow up with retail customer service specialist. I have personally reviewed and analyzed EKG, electronic medical record, and bloodwork/lipids. Tomer Blevins MD, [facility] This note is dictated and transcribed using [employer] Direct Software. Information Technology Instructor variancesmay occur. Despite proofreading, typographical errors may occur. PURPOSE CLERK documented in this encounter Miscellaneous Notes * Addendum Note - Amaury Blum MA - 01/20/2024 8:30 AM CSTAddended by: AMAURY BLUM on: 01/20/2024 09:30 AM Modules accepted: Orders PURPOSE CLERK documented in this encounter Plan of Treatment Not on file documented as of this encounter Procedures Procedure Name Priority Date/Time Associated Diagnosis Comments POCT LIPID PANEL Routine 01/20/2024 9:29 AM ALL PURPOSE CLERK Coronary artery disease involving assiniboine and gros ventre tribes coronary artery of assiniboine and gros ventre tribes heart without angina pectoris documented in this encounter Results * POCT lipid panel (01/20/2024 9:29 AM ALL PURPOSE CLERK) Cholesterol, POC 236 mg/dL Comment:GLU = 134 HDL, POC 38 mg/dL Triglycerides, POC 231 mg/dL LDL Cholesterol POC 152 mg/dL Chol/HDL Ratio, POC 4.0 Non-HDL Cholesterol, POC 198 mg/dL Cholesterol Total, POC 236 mg/dL Capillary blood 01/20/2024 9 :29 AM ALL PURPOSE CLERK Ed Blevins MD POINT OF CARE TEST ORDER JENNIFER Final Result documented in this encounter Visit Diagnoses Diagnosis Coronary artery disease involving assiniboine and gros ventre tribes coronary artery of assiniboine and gros ventre tribes heart without angina pectoris- Primary Paroxysmal atrial [...] documented as of this encounter Care Teams Inspector Floor Relationship Specialty Start Date End Date Deisi Andrews MD [address] [place] [address] PCP - General Family Medicine 04/14/23 documented as of this encounter
--- OUTSIDE RECORDS SUMMARY | 2024-11-12 05:50 | XMS_ITS | Encounter Summary ---
Author Organization [facility] Healthcare Address [address] [place] [address] Care Team Providers Care Product Control And Logistics Analyst Name Role Phone Deisi Andrews MD Primary Care Provider + Reason for Referral * Diagnostic Imaging (Routine) - Closed Specialty Diagnoses / Procedures Referred By Contac t Referred To Contact Diagnoses Elevated troponin Paroxysmal atrial fibrillation (CMS/HCC) (HCC) Procedures NM MPI SPECT (Rest and/or Stress) Multiple Studies Ed Blevins MD Phone: tel: fax: [facility] Referral ID Status Reason Start Date Expiration Date Visits Re quested Visits Authorized [id number] Closed 09/03/2023 09/02/2024 1 1 Encounter Details Date Type Department Care Team (Late st Contact Info) Description 09/09/2023 Telephone [facility] Cardiology [address] [facility] [address] [place] [phone] Ed Blevins MD [address] [facility] [address] [place] [id number] Social History Tobacco Use Types Packs/Day Years [...] often do you attend chur ch or episcopal services? 1 to 4 times per year 04/14/2023 Do you belong to any clubs o r organizations such as hinduism groups, unions, fraternal or athletic groups, or [...] on file Legal Sex Female 7:48 PM AUDIO INSTALLER Gender Identity Not on file Sexual Orientation [...] AM CDT Narrative 09/17/2023 12:50 PM CDT [facility] Cardiology [address], [place] [address] [address] [facility] [address], [place] [address] P:[phone] P:[phone] MPI Imaging Report Patient Name: RODY CRUZ J : 1960 Study Date: 09/16/2023 7:45:00 AM Gender: F Tech: [facility] Location: [facility] Provider: ED BLEVINS ?Height(Cm): 160 [...] imaging is normal. Recommend follow up with analysis intern. Electronically Signed By: Tomer Blevins MD 2023-09-17 12:50:37 CDT Electronically Signed By: Tomer Blevins MD 2023-09-17 12:50:37 CDT Procedure Note Ed Blevins MD - 09/17/2023 [facility] Cardiology [address] [facility] [address], [place] [address] [address] [facility] [address], [place] [address] P:[phone] P:[phone] MPI Imaging Report Patient Name: RODY CRUZ JPatient ID: [id number] : [id number] Date: 09/16/2023 7:45:00 AM Gender: FAccession #: [id number] Tech: , MTLocation: [facility] Provider: ED BLEVINS Height(Cm): 160 [...] imaging is normal. Recommend follow up with analysis intern. Electronically Signed By: Tomer Blevins MD 2023-09-17 12:50:37 CDT Electronically Signed By: Tomer Blevins MD 2023-09-17 12:50:37 CDT Ed [facility]ins MD [facility] Final Result documented in this encounter Visit Diagnoses Diagnosis Elevated troponin- Primary Other abnormal blood chemistry Paroxysmal atrial fibrillation (CMS/HCC) (HCC) Atrial fibrillation Elevated troponin Other abnormal blood chemistry Paroxysmal atrial fibrillation (CMS/HCC) (HCC) Atrial fibrillation documented in this encounter Care Teams Product Control And Logistics Analyst Relationship Specialty Start Date End Date Deisi Andrews MD [address] [place] [address] PCP - General Family Medicine 04/14/23 documented as of this encounter
--- OUTSIDE RECORDS SUMMARY | 2024-11-12 05:50 | XMS_ITS | Encounter Summary ---
Author Organization [facility] Healthcare Address [address] [place] [address] Care Team Providers Care State Archivist Name Role Phone Deisi Andrews MD Primary Care Provider + Encounter Details Date Type Department Care Team (Late st Contact Info) Description 11/22/2023 Telephone [facility] Medical Group Cardiology [address] [place] [address] Ed Blevins MD [address] [facility] [address] [place] [address] Social History Tobacco Use Types [...] often do you attend chur ch or congregation services? 1 to 4 times per year 04/14/2023 Do you belong to any clubs o r organizations such as confucianist groups, unions, fraternal or athletic groups, or [...] place to sleep or slept in a custodial (including now)? No 04/14/2023 Personal Safety Answer Date Recorded Have you ever been in or are you currently in a harmful physical or emotional relationship or is someone making you feel afraid or unsafe? Denies 04/13/2023 Comments Unknown Sex and Gender Information Value Date Recorded Sex Assigned at Not on file Legal Sex Female 7:48 PM CLINICAL RESEARCH MANAGEMENT ASSOCIATE Gender Identity Not on file Sexual Orientation [...] 11/22/2023 2:17 PM CST Sotalol sent in ICAL RESEARCH MANAGEMENT ASSOCIATE * Telephone Encounter - Brittanie Saunders - 11/22/2023 1:46 PM CST Pt has many questions about the sotalol medication refill and why it was discontinued in her chart.[phone] is the best number to call her back. ICAL RESEARCH MANAGEMENT ASSOCIATE * Telephone Encounter - Bib Loving MA - 11/22/2023 11:45 AM CST Refill for Losartan sent in but as of 11/17/23 pt is no longer on Sotalol per [facility] ICAL RESEARCH MANAGEMENT ASSOCIATE * Telephone Encounter - Rica Gaxiola - 11/22/2023 11:30 AM CST Patient requesting refill for Sotalol and Losartan with 90 day supply. Please send to [facility]. Thank you. Contact: ICAL RESEARCH MANAGEMENT ASSOCIATE * Telephone Encounter - Mary Mosqueda RN - 11/22/2023 11:01 AM CLINICAL RESEARCH MANAGEMENT ASSOCIATE EKG from 11/18/23 and 11/19/23 faxed as requested. ICAL RESEARCH MANAGEMENT ASSOCIATE * Telephone Encounter - Rica Gaxiola - 11/22/2023 10:21 AM CST Sammie called from [facility] requesting EKG report from Wednesday be faxed to their office. Thank you. Contact: ICAL RESEARCH MANAGEMENT ASSOCIATE documented in this encounter Plan of Treatment Not on file documented as of this encounter Visit Diagnoses Not on filedocumented in this encounter Discontinued Medications Medication Sig Discontinue Reason Start Date End Da te losartan (COZAAR) 100 mg tablet Take 1 tablet (100 mg total) by mouth daily Reorder 11/22/2023 documented as of this encounter Care Teams State Archivist Relationship Specialty Start Date End Date Deisi Andrews MD [address] [address] PCP - General Family Medicine 04/14/23 documented as of this encounter
--- OUTSIDE RECORDS SUMMARY | 2024-11-12 05:50 | XMS_ITS | Encounter Summary ---
Author Organization [facility] Healthcare Address [address] [place] [address] Care Team Providers Care Mental Telepathist Name Role Phone Deisi Andrews MD Primary Care Provider + Reason for Referral * Cardiology (Routine) - Closed Specialty Diagnoses / Procedures Referred By Contac t Referred To Contact Diagnoses Paroxysmal atrial fibrillation (CMS/HCC) (HCC) Procedures ECG 12 lead Jj Blevins MD Phone: tel: fax: Referral ID Status Reason Start Date Expiration Date Visits Re quested Visits Authorized [id number] Closed 08/27/2023 09/25/2024 1 1 * Diagnostic Imaging (Routine) - Closed Specialty Diagnoses / Procedures Referred By Contac t Referred To Contact Cardiology Diagnoses Mixed diabetic hyperlipidemia associated with type 2 diabetes mellitus (HCC) Paroxysmal atrial fibrillation (CMS/HCC) (HCC) Peripheral arterial disease (HCC) Coronary artery disease involving asa'carsarmiut coronary artery of asa'carsarmiut heart without angina pectoris Elevated troponin Procedures NM MPI SPECT (Rest and/or Stress) Multiple Studies Jj Blevins MD Phone: tel: fax: Referral ID Status Reason Start Date Expiration Date Visits Re quested Visits Authorized [id number] Closed 08/27/2023 09/25/2024 1 1 Reason for Visit * Reason Comments Hospital Follow Up Discharged from [facility] on 08/11/23 Dx: SOB Encounter Details Date Type Department Care Team (Latest Contact Info) Description 08/27/2023 9:00 AM CDT Office Visit [facility] Medical Group Cardiology [address] [place] [address] Jj Blevins MD [facility] [address] [place] [address] Paroxysmal atrial fibrillation (CMS/HCC) (HCC) (Primary Dx); Coronary artery disease involving asa'carsarmiut coronary artery of asa'carsarmiut heart without angina pectoris; Elevated troponin; Hypertension [...] any clubs o r organizations such as anglican groups, unions, fraternal or athletic groups, or [...] on file Legal Sex Female 7:48 PM BUSINESS DEVELOPMENT 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 Gender Identity Not on file Sexual [...] presents with Hospital Follow Up Discharged from [facility] on 08/11/23 Dx: SOB ASSESSMENT Diagnoses and all orders for this visit: Paroxysmal atrial fibrillation (CMS/HCC) (HCC) (Primary) - NM MPI SPECT (Rest and/or Stress) Multiple Studies; Future - ECG 12 lead Coronary artery disease involving asa'carsarmiut coronary artery of asa'carsarmiut heart without angina pectoris - NM MPI [...] history of nonobstructive CAD asshe reports by [facility] years ago, diabetes mellitus. Recommendation to follow. [...] Allergies Allergen Reactions Penicillins Hives Reaction: Hives, Otdfuxl-Onw-Uqu Reductase Inhibitors Muscle pain Venom-Honey Bee Swelling [...] Total, POC 206 mg/dL 08/07/2023 2D echo [facility]: EF 60 65% grade 1 diastolic dysfunction mild MR/TR, normal left atrial size and LV wall thickness I have personally reviewed and analyzed EKG, electronic medical record, and bloodwork/lipids. Tomer Blevins MD, [facility] This note is dictated and transcribed using [employer] Direct Software. Nuts And Bolts Assembler variancesmay occur. Despite proofreading, typographical errors may occur. documented in this encounter Plan of Treatment Not on file documented as of this encounter Procedures Procedure Name Priority Date/Time Associated Diagnosis Comments POCT LIPID PANEL Routine 08/27/2023 12:3 0 PM CDT Coronary artery disease involving asa'carsarmiut coronary artery of asa'carsarmiut heart without angina pectoris ECG 12-LEAD Routine 08/27/2023 Paroxysmal atrial fibrillation (CMS/HCC) (HCC) documented in this encounter Results * NM MPI SPECT (Rest and/or Stress) Multiple Studies (09/08/2023 10:59 AM CDT) Anatomical Region Laterality Modality Body N/A Nuclear Medicine 09/08/2023 8:18 AM CDT Narrative 09/08/2023 5:02 PM CDT [facility] Medical Group Cardiology [address] [facility] [address], [place] [address] [address] [facility] [address], [place] [address] P:[phone] P:[phone] MPI Imaging Report Patient Name: ARNOLD CRUZ J : 1960 Study Date: 09/08/2023 8:18:32 AM Gender: F Tech: JO MILLIGAN Location: [place] Ref.Provider: JJ BLEVINS Height(Cm): 160 BSA: Weight(Kg): [...] Note Jose A Gaines MD - 09/08/2023 [facility] Medical Group Cardiology [address] [facility] [address], [place] [address] [address] [facility] [address], [place] [address] P:[phone] P:[phone] MPI Imaging Report Patient Name: ARNOLD CRUZ JPatihernandez ID: [id number] : [id number] Date: 09/08/2023 8:18:32 AM Gender: FAccession #: [id number] Tech: , CNWVLocation: [place] Ref.Provider: Mickie BLEVINSight(Cm): 160 BSA: Weight(Kg): 83.9 [...] Primary Atrial fibrillation Coronary artery disease involving asa'carsarmiut coronary artery of asa'carsarmiut heart without angina pectoris Elevated troponin Other [...] peripheral vascular disease Coronary artery disease involving asa'carsarmi[place] coronary artery of asa'carsarmiut heart without angina pectoris Elevated troponin Other [...] 4 added in this encounter Care Teams Mental Telepathist Relationship Specialty Start Date End Date Deisi Andrews MD [address] [place] [address] [address] [place] [address] PCP - General Family Medicine 04/14/23 documented as of this encounter
--- OUTSIDE RECORDS SUMMARY | 2024-11-12 05:50 | XMS_ITS | Encounter Summary ---
Author Organization [facility] Healthcare Address [address] [place] [address] Care Team Providers Care Hobbing Press Operator Name Role Phone Deisi Andrews MD Primary Care Provider + Encounter Details Date Type Department Care Team (Late st Contact Info) Description 10/27/2023 Orders Only [facility] Medical Group Cardiology [address] [place] [address] Eric Bradley MD [address] [place] [address] Social History Tobacco Use Types [...] often do you attend chur ch or catholic services? 1 to 4 times per year 04/14/2023 Do you belong to any clubs o r organizations such as voodoo groups, unions, fraternal or athletic groups, or [...] place to sleep or slept in a mcfp (including now)? No 04/14/2023 Personal Safety Answer Date Recorded Have you ever been in or are you currently in a harmful physical or emotional relationship or is someone making you feel afraid or unsafe? Denies 04/13/2023 Comments Unknown Sex and Gender Information Value Date Recorded Sex Assigned at Not on file Legal Sex Female 7:48 PM CONCRETE BATCHING PLANT OPERATOR Gender Identity Not on file Sexual Orientation Not on file documented as of this encounter Plan of Treatment Not on file documented as of this encounter Procedures Procedure Name Priority Date/Time Associated Diagnosis Comments CARDIOLOGY DOCUMENT SCAN Routine 10/26/2023 9:17 AM CONCRETE BATCHING PLANT OPERATOR CARDIOLOGY DOCUMENT SCAN Routine 10/25/2023 9:15 AM CONCRETE BATCHING PLANT OPERATOR documented in this encounter Results * Cardiology Document Scan (10/26/2023 9:17 AM CONCRETE BATCHING PLANT OPERATOR) Anatomical Region Laterality Modality Other us Kely Moran NP CV CARDIAC SERVICES PROCEDUR ES Final Result * Cardiology Document Scan (10/25/2023 9:15 AM CONCRETE BATCHING PLANT OPERATOR) Anatomical Region Laterality Modality Other us Eric Bradley MD CV CARDIAC SERVICES PROC EDURES Final Result documented in this encounter Visit Diagnoses Not on filedocumented in this encounter Care Teams Hobbing Press Operator Relationship Specialty Start Date End Date Deisi Andrews MD [address] [place] [address] PCP - General Family Medicine 04/14/23 documented as of this encounter
--- OUTSIDE RECORDS SUMMARY | 2024-11-12 05:50 | XMS_ITS | Encounter Summary ---
Author Organization [facility] Healthcare Address [address] [place] [address] Care Team Providers Care Gift Packer Name Role Phone Deisi Andrews MD Primary Care Provider + Encounter Details Date Type Department Care Team (Late st Contact Info) Description 08/08/2023 Orders Only [facility] Health Information Management [address] [place] [id number] Ed Blevins MD [address] [facility] [address] [place] [address] Social History Tobacco Use Types [...] often do you attend chur ch or bahai services? 1 to 4 times per year 04/14/2023 Do you belong to any clubs o r organizations such as zoroastrian groups, unions, fraternal or athletic groups, or [...] place to sleep or slept in a alf (including now)? No 04/14/2023 Personal Safety Answer Date Recorded Have you ever been in or are you currently in a harmful physical or emotional relationship or is someone making you feel afraid or unsafe? Denies 04/13/2023 Comments Unknown Sex and Gender Information Value Date Recorded Sex Assigned at Not on file Legal Sex Female 7:48 PM SHOP TECH Gender Identity Not on file Sexual Orientation [...] on filedocumented in this encounter Care Teams Gift Packer Relationship Specialty Start Date End Date Deisi Andrews MD [address] [place] [address] [address] [place] [address] PCP - General Family Medicine 04/14/23 documented as of this encounter
--- OUTSIDE RECORDS SUMMARY | 2024-11-12 05:50 | XMS_ITS | Encounter Summary ---
Author Organization [facility] Healthcare Address [address] [place] [address] Care Team Providers Care Commercial Sales Manager Name Role Phone Matti Balderas MD Primary Care Provider [phone] Deisi Andrews MD Primary Care Provider + Reason for Visit * Reason Comments Arm Injury * Auth/Cert (Routine) Specialty Diagnoses / Procedures Referred By Contac t Referred To Contact Diagnoses Posterior dislocation of left elbow, initial encounter Closed dislocation of left elbow, initial encounter Procedures na Referral ID Status Reason Start Date Expiration Date Visits Re quested Visits Authorized [id number] 1 1 Encounter Details Date Type Department Care Team (Late st Contact Info) Description 04/13/2023 10:05 AM CDT - 04/14/2023 1:25 PM CDT Emergency [address] [phone] [place] [address] [place] [address] Earl Bhandari, DO [address] [place] [address] Posterior dislocation of left elbow, initial encounter [...] How often do you attend chur or taoism services? 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 * Closed Reduction (General Information) (Israeli) * Hydrocodone/Acetaminophen (By mouth) (Israeli) documented in this encounter Medications at Time of Discharge clopidogreL (PLAVIX) 75 mg tablet Take 1 tablet (75 mg total) by mouth daily ezetimibe (ZETIA) 10 mg tablet Take 1 tablet (10 mg total) by mouth daily fexofenadine-pse udoephedrine (SAMANTHA-D 24) 180-240 mg per 24 hr tablet Take 1 tablet by mouth daily albuterol HFA (PROVENTIL HFA,VENTOLIN HFA,PROAIR HFA) 90 mcg/actuation inhaler INHALE 2 PUFFS BY MOUTH FOUR TIMES DAILY NEEDED FOR SHORTNESS OF BREATH OR WHEEZING 12/15/2015 FLUoxetine (PROzac) 40 mg capsule Take 60 [...] total) by mouth nightly as needed 02/22/2023 losartan (COZAAR) 100 mg tablet Take 1 tablet (100 mg total) by mouth daily 4 metoprolol XL (TOPROL-XL) 25 mg extended release tablet Take 1 tablet (25 mg total) by mouth daily 3 HYDROcodone-acet aminophen (NORCO) 7.5-325 mg per tabletIndication [...] Take 50 mg by mouth daily 4 zolpidem (AMBIEN) 10 mg tabletIndication s:Sleep-Onset [...] Patient is 62 yo female admitted to [facility] following fall at home and posterior [...] per pt report Prior Function Level of [place] Independent with ADLs;Independent functional transfers;Independent with ambulation;Needs [...] Therapy Additional Pertinent History Patient presents to [facility] following fall at home and posterior [...] for community distances) Prior Function Level of [place] Independent with ADLs;Independent functional transfers;Independent with ambulation;Needs [...] Conv) Past Surgical History: Procedure Laterality Date [place] DELIVERY ONLY Section - (Added by TW Conv) LA CHOLECYSTECTOMY Cholecystectomy - (Added by TW Conv) [place] LIG/TRNSXJ FLP TUBE ABDL/VAG APPR UNI/BI Tubal [...] this encounter ED Notes * Deisi Vera [employer] - 04/13/2023 10:08 AM CDT Chief complaint I tripped over the dog cage and the dog and hurt my left arm. HPI Chief Complaint Patient presents with Arm Injury HPI This 62-year-old female presents per private car [facility] with complaints of left elbow pain [...] disease (HCC) 02/19/2023 Diverticulitis 01/21/2023 CAD in [place] artery 10/24/2020 Hyperlipidemia, mixed 03/22/2017 Anxiety 03/01/2017 [...] Conv) Polyosteoarthritis Generalized osteoarthritis - (Added by [employer]) Past Surgical History: Procedure Laterality Date [place] DELIVERY ONLY Section - (Added by [employer] Conv) LA CHOLECYSTECTOMY Cholecystectomy - (Added by TW Conv) LA LIG/TRNSXJ FLP TUBE ABDL/VAG APPR UNI/BI Tubal Ligation - (Added by [employer] Conv) Family History Problem Relation Age of Onset Lung cancer Other Malignant Lung Neoplasm - (Added by [employer] Conv) Hypertension Other Hypertension - (Added by [employer]) Diabetes Other Diabetes Mellitus - (Added by [employer] Conv) Social History Tobacco Use Smoking status: Every Day Packs/day: 0.75 Years: 40.00 Pack years: 30.00 Types: Cigarettes Smokeless tobacco: None Vaping Use Vaping Use: Never used Substance and Sexual Activity Alcohol use: None Drug use: Yes Frequency: 2.0 times per week Types: Marijuana Sexual activity: Defer Social History Social History Narrative Unemployed : (Added by [employer] Conv) Current smoker : (Added by [employer]) Current smoker : 3 cigarettes per day; previously 1/2 ppd x 15 years (Added by [employer]) Review of Systems Review of Systems Musculoskeletal: [...] . This test is performed using the [employer] Xpert Xpress plus assay. This is a [...] . This test is performed using the [employer] Xpert Xpress plus assay. This is a [...] collaborator, who advised contact orthopedic surgeon. Instructed fish warden to call power electronics research engineer orthopedic surgeon for patient; awaiting response By: [...] surgery By: Deisi Vera NP Time: 04/13 7939 Comment: Spoke with Dr. Bhandari and informed [...] friends. Discharge instructions reviewed with patient and/or telesales representative. Mobile pharmacy medications and/or prescriptions provided. [...] (04/14/23 0814) Admission Source: [facility]. She reports she was attempting to stepover the dog and dog gate, and she tripped over the dog and gate and fell on her left elbow. Impression: Pt lives home alone in [place], [place]. She was [facility]. She is normally independent but [...] somewhere for rehab. Her preference would be [facility] as it is clos e to her home. Did discussed potential of home health with pt but she continued to voice desire of rehab as she can not care for herself at home. Plan Includes: D/C to Rehab per patient request. Primary Source of Transportation: Does the patient need discharge transport arranged?: No (04/14/23813) Patient reports [facility] is [facility]. Health Insurance Coverage: [employer]wave COMPLETE/cloudswave [place] Pharmacy: [id number] - [place], [place] - [address] [facility] [phone] Primary Care Provider: Deisi Andrews MD Prior to Admission: Primary Caregiver: Self Who does the patient or legal guardian want to receive education instruction and discharge plans for after care assistance?: Decline Support System: Children, Family members, Friends/neighbors Support system contact info (name, phone, availablity): Radha Malloy (Daughter) [phone] (M) Home Care Services: Yes Type of Home Care Services: dry kiln worker Home care service name and phone number: [...] a week How often do you attend latter-day or taoism services?: 1 to 4 times per year Do you belong to any clubs or organizations such as latter-day groups, unions, fraternal or athletic groups, or [...] (04/14/23813) Patient expects to be Discharged to: Residential Facility, (04/14/[address]) Additional Information: Patient's Identified Problem/Goal [...] Collaboration with patient, MD, direct care nurse, Director Market Research, and other members of the health care team to assure needed interventions completed. 2. Return patient to optimal level of self-care post discharge. 3. Communications Technologist will follow for Discharge Planning - interventions [...] 04/13/2023 Surgeon: Surgeon(s): Earl Bhandari DO Staff: Licensed Psychologist: Karishma Macias RN Scrub: Marilu Duque ST [...] CDT) Glucose 154 70 - 199 mg/dL [facility] Comment: Interpretive Data Fasting glucose >/= 126 [...] Bhandari DO LAB BLOOD ORDERABLES Final Result [facility] [address] [facility] [place] [address] * (ABNORMAL) POCT glucose (04/13/2023 9:03 PM CDT) Glucose POC 207(H) 70 - 199 mg/dL [facility] Blood 04/13/2023 9:03 PM CDT 04/13/2023 9:03 PM CDT Earl Bhandari DO LAB POCT ORDERABLES - COLEEN CE Final Result Performing Organization Address City/[facility]/ZIP Co de Phone Number [facility] [address] [place] [address] * POCT glucose (04/13/2023 6:10 PM CDT) Glucose POC 131 70 - 199 mg/dL [facility] Blood 04/13/2023 6:10 PM CDT 04/13/2023 6:10 PM CDT Earl Bhandari DO LAB POCT ORDERABLES - COLEEN CE Final Result Performing Organization Address [facility] Co de Phone Number [facility] [address] [place] [address] * XR Elbow Left 2 Views (04/13/2023 [...] Glucose POC 143 70 - 199 mg/dL [facility] Blood 04/13/2023 4:43 PM CDT 04/13/2023 4:43 PM CDT Earl Bhandari DO LAB POCT ORDERABLES - COLEEN CE Final Result [facility] [address] [facility] [place] [address] * XR Wrist Left 3 or More [...] 12:49 PM CDT) COVID-19 RNA Negative Negative [facility] Nasopharyngeal 04/13/2023 12 :49 PM CDT 04/13/2023 12:52 PM CDT Narrative [facility] - 04/13/2023 1:38 PM CDT Is the patient experiencing any symptoms consistent with COVID (eg. Fever, cough, shortness of breath)?->No What is the reason for testing?->Asymptomatic screening prior to procedure??or??surgery (Rapid) ??Interpretive data: Synonyms for this test include: PCR and NAAT . ??This test is performed using the QualiLife Xpert Xpress plus assay. This is a [...] . ??This test is performed using the [employer] Xpert Xpress plus assay. This is a [...] MICROBIOLOGY - GENER AL ORDERABLES Final Result [facility] [address] [facility] [place] [address] * ECG 12 lead (04/13/2023 11:53 AM CDT) 04/13/2023 11:5 3 AM CDT Narrative [facility] - 04/13/2023 3:44 PM CDT Vent Rate: 74 bpm RR Interval: 801 msec LA Interval: 136 msec QRS Duration: 103 msec QT Interval: 377 msec QTC Interval: 405 msec P-R-T [place]: 48 - 27 - 25 degrees SINUS RHYTHM LOW QRS VOLTAGE IN PRECORDIAL LEADS BORDERLINE ECG Electronically Signed By: Chino Smith ?? [facility] Deisi Vera NP ECG ORDERABLES Final Re sult [facility] * XR Chest 1 Vw [...] * eGFR (04/13/2023 11:30 AM CDT) Pathologist [facility] eGFR 78 mL/min/1. 73 m2 [facility] Comment: Interpretive Data Reference Interval Normal ?>/= [...] NP LAB BLOOD ORDERABLES Fin al Result [facility] [address] [facility] [place], [place] [id number] * Differential, auto (04/13/2023 11:30 AM CDT) Pathologist [facility] Neutrophil abs 6.2 1.7 - 6.5 K/cumm [facility] Imm gran abs 0.1 0.0 - 0.1 K/cumm [facility] Lymphocyte abs 2.2 0.8 - 3.3 K/cumm [facility] Monocyte abs 0.7 0.2 - 0.8 K/cumm [facility] Eosinophil abs 0.3 0.0 - 0.5 K/cumm [facility] Basophil abs 0.1 0.0 - 0.1 K/cumm [facility] Neutrophil pct 65.3 % [facility] Comment: Interpretive Data Percent cell count reference ranges are not reported, since discordance with absolute values may lead to misinterpretation of CBC data. Current Interpretive Data was last revised on 2018. Imm gran pct 0.5 % [facility] Comment: Interpretive Data Percent cell count reference ranges are not reported, since discordance with absolute values may lead to misinterpretation of CBC data. Current Interpretive Data was last revised on 2018. Lymphocyte pct 23.3 % [facility] Comment: Interpretive Data Percent cell count reference ranges are not reported, since discordance with absolute values may lead to misinterpretation of CBC data. Current Interpretive Data was last revised on 2018. Monocyte pct 7.6 % [facility] Comment: Interpretive Data Percent cell count reference ranges are not reported, since discordance with absolute values may lead to misinterpretation of CBC data. Current Interpretive Data was last revised on 2018. Eosinophil pct 2.8 % [facility] Comment: Interpretive Data Percent cell count reference ranges are not reported, since discordance with absolute values may lead to misinterpretation of CBC data. Current Interpretive Data was last revised on 2018. Basophil pct 0.5 % [facility] Comment: Interpretive Data Percent cell count reference ranges are not reported, since discordance with absolute values may lead to misinterpretation of CBC data. Current Interpretive Data was last revised on 2018. Blood 04/13/2023 11:3 0 AM CDT 04/13/2023 11:54 AM CDT us Deisi Vera [employer] LAB BLOOD ORDERABLES Fin al Result [facility] [address] [facility] [place] [address] * (ABNORMAL) Comprehensive metabolic panel (04/13/2023 11:30 AM CDT) Sodium 139 135 - 145 mmol/L [facility] Potassium, pl 4.4 3.3 - 4.9 mmol/L [facility] Chloride 104 97 - 110 mmol/L [facility] CO2 24 22 - 32 mmol/L [facility] Anion gap 11 2 - 15 mmol/L [facility] BUN 28(H) 8 - 25 mg/dL [facility] Creatinine 0.85 0.60 - 1.10 mg/dL [facility] Glucose 184 70 - 199 mg/dL [facility] Comment: Interpretive Data Fasting glucose >/= 126 [...] 2022. Calcium 9.4 8.5 - 10.3 mg/dL [facility] Bilirubin, total 0.2 0.1 - 1.2 mg/dL [facility] Protein, pl 6.8 6.5 - 8.5 g/dL [facility] Albumin 4.0 3.5 - 5.2 g/dL [facility] Alk phos 99 40 - 130 Units/L [facility] ALT 13 7 - 45 Units/L [facility] AST 12 10 - 45 Units/L [facility] Blood 04/13/2023 11:3 0 AM CDT 04/13/2023 11:54 AM CDT us Deisi Vera NP LAB BLOOD ORDERABLES Fin al Result [facility] [address] [facility] [place] [address] * CBC with auto differential (04/13/2023 11:30 AM CDT) WBC 9.5 3.8 - 9.9 K/cumm [facility] Hgb 13.1 11.9 - 15.5 g/dL [facility] Hct 39.9 35.6 - 45.5 % [facility] Plt 216 150 - 400 K/cumm [facility] MPV 10.0 9.1 - 12.3 fL [facility] RBC 4.53 3.90 - 5.20 M/cumm [facility] MCV 88.1 81.3 - 96.4 fL [facility] MCH 28.9 27.1 - 33.3 pg [facility] MCHC 32.8 32.3 - 35.7 g/dL [facility] RDW CV 13.3 11.1 - 14.9 % [facility] RDW SD 43.0 35.7 - 48.1 fL [facility] NRBC abs 0.00 0.00 - 0.01 K/cumm [facility] Blood 04/13/2023 11:3 0 AM CDT 04/13/2023 11:54 AM CDT us Deisi Vera NP LAB BLOOD ORDERABLES Fin al Result Performing Organization Address City/State/[facility] Co de Phone Number [facility] [address] [facility] [place] [address] * XR Elbow Left 2 Views (04/13/2023 [...] 04/13/2023 documented in this encounter Care Teams Commercial Sales Manager Relationship Specialty Start Date End Date Matti Balderas MD PCP - General Family Medicine 09/24/21 04/13/23 Deisi Andrews MD [address] [place] [address] DR [address] [place] [address] PCP - General Family Medicine 04/14/23 documented as of this encounter
--- OUTSIDE RECORDS SUMMARY | 2024-11-12 05:50 | XMS_ITS | Encounter Summary ---
Author Organization [facility] Healthcare Address [address] [place] [address] Care Team Providers Care Gearcase Assembler Name Role Phone Deisi Andrews MD Primary Care Provider + Reason for Visit * Reason Onset Date Comments Repatha 01/20/2024 Encounter Details Date Type Department Care Team (Late st Contact Info) Description 01/20/2024 Telephone [facility] Medical Group Cardiology [address] [place] [phone] Mary Blum MA Repatha Social History Tobacco [...] often do you attend chur ch or mandaen services? 1 to 4 times per year 04/14/2023 Do you belong to any clubs o r organizations such as latter day groups, unions, fraternal or athletic groups, or [...] on file Legal Sex Female 7:48 PM CAREER ORIENTATION TEACHER Gender Identity Not on file Sexual Orientation [...] her repatha was prescribed by her previous stuntman. Is is asking if you can take care of it for her Thank you! ER ORIENTATION TEACHER documented in this encounter Plan of Treatment Not on file documented as of this encounter Visit Diagnoses Not on filedocumented in this encounter Discontinued Medications Medication Sig Discontinue Reason Start Date End Da te evolocumab (Repatha SureClick) 140 mg/mL pen injector Reorder 05/29/2022 02/02/2024 documented as of this encounter Care Teams Gearcase Assembler Relationship Specialty Start Date End Date Deisi Andrews MD [address] [place] [address] [address] [place] [address] PCP - General Family Medicine 04/14/23 documented as of this encounter
--- OUTSIDE RECORDS SUMMARY | 2024-11-12 05:50 | XMS_ITS | Encounter Summary ---
Author Organization [facility] Healthcare Address [address] [place] [address] Care Team Providers Care State Auditor Name Role Phone Matti Balderas MD Primary Care Provider [phone] Reason for Visit * Auth/Cert (Routine) Specialty Diagnoses / Procedures Referred By Contac t Referred To Contact Diagnoses Posterior dislocation of left elbow, initial encounter Closed dislocation of left elbow, initial encounter Procedures na Referral ID Status Reason Start Date Expiration Date Visits Re quested Visits Authorized [id number] 1 1 Encounter Details Date Type Department Care Team (Late st Contact Info) Description 04/13/2023 5:47 PM CDT Anesthesia Event Operating Room [address] [place] [address] Earl Bhandari, DO [address] [place] [phone] Aldair Alegria, SPARMAKER [address] [place] [address] Anesthesia Record Procedure Summary Procedure Name Responsible [...] ft; Elbow; 10/17/24 (Retired LDA, Removed/Completed by [employer] with LDA Utility); 1213 (Retired LDA, Removed/Completed by [employer] with LDA Utility) 04/13/23 1751 by Karishma [...] 04/14/2023 How often do you attend chur [employer] or bahai services? 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 Anxiety ??? Asthma ??? CAD in [place] artery ??? Cervicalgia ??? Acute exacerbation of [...] Past Surgical History: Procedure Laterality Date ??? [place] DELIVERY ONLY Section - (Added by TW Conv) ??? [place] CHOLECYSTECTOMY Cholecystectomy - (Added by TW Conv) ??? [place] LIG/TRNSXJ FLP TUBE ABDL/VAG APPR UNI/BI Tubal [...] Medication protocol when under care of a SPARMAKER Planned anesthesia: General Induction: Induction: intravenous. Postoperative Plan: No postoperative mechanical ventilation intended. Informed Consent: Discussed plan with SPARMAKER. Anesthesia plan and risks discussed with patient. [...] mg documented in this encounter Care Teams State Auditor Relationship Specialty Start Date End Date Matti Balderas MD PCP - General Family Medicine 09/24/21 04/13/23 documented as of this encounter
--- OUTSIDE RECORDS SUMMARY | 2024-11-12 05:50 | XMS_ITS | Encounter Summary ---
Author Organization [facility] Healthcare Address [address] [place] [address] Care Team Providers Care Evening Sitter Name Role Phone Deisi Andrews MD Primary Care Provider + Encounter Details Date Type Department Care Team (Late st Contact Info) Description 10/29/2023 Orders Only [facility] Medical Group Cardiology [address] [place] [address] [place] [address] [place] [address] Social History Tobacco Use Types Packs/Day [...] often do you attend chur ch or hoahaoism services? 1 to 4 times per year 04/14/2023 Do you belong to any clubs o r organizations such as uatsdin groups, unions, fraternal or athletic groups, or [...] on file Legal Sex Female 7:48 PM CHARHOUSE WORKER Gender Identity Not on file Sexual Orientation Not on file documented as of this encounter Plan of Treatment Not on file documented as of this encounter Procedures Procedure Name Priority Date/Time Associated Diagnosis Comments CARDIOLOGY DOCUMENT SCAN Routine 023 11:18 AM CHARHOUSE WORKER documented in this encounter Results * Cardiology Document Scan (10/27/2023 11:18 AM CHARHOUSE WORKER) Anatomical Region Laterality Modality Other [facility] Veda De Leon MD CV CARDIAC SERVICES PRO CEDURES Final Result documented in this encounter Visit Diagnoses Not on filedocumented in this encounter Care Teams Evening Sitter Relationship Specialty Start Date End Date Deisi Andrews MD [address] [place] [address] [address] [place] [address] PCP - General Family Medicine 04/14/23 documented as of this encounter
--- OUTSIDE RECORDS SUMMARY | 2024-11-12 05:50 | XMS_ITS | Encounter Summary ---
Author Organization [facility] Healthcare Address [address] [place] [address] Care Team Providers Care Level Vial Sealer Name Role Phone Deisi Andrews MD Primary Care Provider + Encounter Details Date Type Department Care Team (Late st Contact Info) Description 11/18/2023 Telephone [facility] Medical Group Cardiology [address] [place] [address] Kely Moran, KATHERINE [address] [place] [address] Social History Tobacco Use Types [...] often do you attend chur ch or baptist services? 1 to 4 times per year 04/14/2023 Do you belong to any clubs o r organizations such as jehovah's witness groups, unions, fraternal or athletic groups, or [...] on file Legal Sex Female 7:48 PM BALANCE WHEEL SCREW HOLE DRILLER Gender Identity Not on file Sexual Orientation Not on file documented as of this encounter Miscellaneous Notes * Telephone Encounter - Mary Mosqueda RN - 11/18/2023 9:47 AM BALANCE WHEEL SCREW HOLE DRILLER Pt scheduled for EKG tomorrow, will discuss scheduling appts with Dr. Edmonds and f/u with AD when pt is here for her EKG. NCE WHEEL SCREW HOLE DRILLER * Telephone Encounter - Mary Mosqueda RN - 11/18/2023 9:06 AM BALANCE WHEEL SCREW HOLE DRILLER Message below from CK. Patient is sent [...] AD patient) in 4-6 weeks. Thank you! NCE WHEEL SCREW HOLE DRILLER documented in this encounter Plan of Treatment [...] fibrillation documented in this encounter Care Teams Level Vial Sealer Relationship Specialty Start Date End Date Deisi Andrews MD [address] [place] [address] [address] [place] [address] PCP - General Family Medicine 04/14/23 documented as of this encounter
--- OUTSIDE RECORDS SUMMARY | 2024-11-12 05:51 | XMS_ITS | Encounter Summary ---
Author Organization [facility] Facility Care Team Providers Care Plc Engineer Name Role Phone Unavailable Primary Care Provider Unavailabl e Encounter Details Date Type Department Care Team (Latest Contact Info) Description 09/21/2013 9:04 AM HYDRO STATION OPERATOR - 09/21/2013 1:47 PM HYDRO STATION OPERATOR Hospital Encounter [facility] K[facility]aid, Roxanne Starks MD [address] [place] [address] Condyloma acuminatum; Tobacco use disorder; Other emphysema (HCC); Asthma; Obstructive sleep apnea; Osteoarthrosis; Essential hypertension; Esophageal reflux; Obesity Social History Tobacco Use Types Packs/Day Years Used Date Smoking Tobacco: Never Assessed Comments Unknown Sex and Gender Information Value Date Recorded Sex Assigned at Not on file Legal Sex Female 7:48 PM HYDRO STATION OPERATOR Gender Identity Not on file Sexual Orientation Not on file documented as of this encounter Miscellaneous Notes * Op Note - Provider, MD Ramírez - 09/21/2013 12:00 AM CST Patient: RODY CRUZ. Account: [id number] Room No: : 1960 Proc. Date: 09/21/2013 Surgeon: ROXANNE KINCAID MD Admit Date: 09/21/2013 Disch. Date: 09/21/2013 Patient Type: S PREOPERATIVE DIAGNOSIS: Anal condyloma. POSTOPERATIVE DIAGNOSIS: Anal condyloma. NAME OF PROCEDURE: Examination under anesthesia, excision and coagulation of anal condyloma. SURGEON: Roxanne Kincaid MD. ORGAN RECOVERY COORDINATOR: Linda Morris MD. ANESTHESIA: MAC. COMPLICATIONS: None. [...]
--- OUTSIDE RECORDS SUMMARY | 2024-11-12 05:51 | XMS_ITS | Encounter Summary ---
Author Organization [facility] Facility Care Team Providers Care Transit Proof Machine Operator Name Role Phone Unavailable Primary Care Provider Unavailabl e Encounter Details Date Type Department Care Team (Late st Contact Info) Description 05/02/2012 12:44 PM CDT - 05/02/2012 4:00 PM T Hospital Encounter [facility] Sanjeev Stephen MD [address] [address] Hypertrophy of adenoids alone; Other diseases of vocal cords; Tobacco use disorder; Dysfunction of eustachian tube; Sensorineural hearing loss Social History Tobacco Use Types Packs/Day Years Used Date Smoking Tobacco: Never Assessed Comments Unknown Sex and Gender Information Value Date Recorded Sex Assigned at Not on file Legal Sex Female 7:48 PM FOUNDRY MELT 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
--- OUTSIDE RECORDS SUMMARY | 2024-11-12 05:51 | XMS_ITS | Encounter Summary ---
Author Organization [facility] Address [address] [place] [address] Care Team Providers Care Power Saw Operator Name Role Phone Unavailable Primary Care Provider Unavailabl e Encounter Details Date Type Department Care Team (Latest Contact Info) Description 05/17/2013 11:52 AM CDT - 05/17/2013 4:11 PM CDT Hospital Encounter [facility] Martir Garcia MD [address] [address] Special screening for malignant neoplasms, colon; Diverticulosis of colon; Condyloma acuminatum Social History Tobacco Use Types Packs/Day Years Used Date Smoking Tobacco: Never Assessed Comments Unknown Sex and Gender Information Value Date Recorded Sex Assigned at Not on file Legal Sex Female 7:48 PM CLINICAL PHYSICIAN ASSISTANT Gender Identity Not on file Sexual Orientation [...]
--- OUTSIDE RECORDS SUMMARY | 2024-11-12 05:51 | XMS_ITS | Encounter Summary ---
Author Organization [facility] Address [address] [place] [address] Care Team Providers Care Ceo Name Role Phone Matti Balderas MD Primary Care Provider [phone] Encounter Details Date Type Department Care Team (Late st Contact Info) Description 06/26/2022 Orders Only [facility] Cardiology [address] [facility] [address] [place] [address] Eric Bradley MD [address] [facility] [address] [place] [address] Social History Tobacco Use Types Packs/Day Years Used Date Smoking Tobacco: Never Assessed Comments Unknown Sex and Gender Information Value Date Recorded Sex Assigned at Not on file Legal Sex Female 7:48 PM CLIENT CUSTOMER MANAGER Gender Identity Not on file Sexual Orientation Not on file documented as of this encounter Plan of Treatment Not on file documented as of this encounter Procedures Procedure Name Priority Date/Time Associated Diagnosis Comments CARDIOLOGY DOCUMENT SCAN Routine 06/26/2022 documented in this encounter Results * Cardiology Document Scan (06/26/2022) Anatomical Region Laterality Modality Other Kely Moran BUSBOY CV CARDIAC SERVICES PROCEDUR ES Final Result documented in this encounter Visit Diagnoses Not on filedocumented in this encounter Care Teams Ceo Relationship Specialty Start Date End Date Matti Balderas MD PCP - General Family Medicine 09/24/21 04/13/23 documented as of this encounter
--- OUTSIDE RECORDS SUMMARY | 2024-11-12 05:51 | XMS_ITS | Encounter Summary ---
Author Organization [facility] Facility Care Team Providers Care Clin Nurse Spec Name Role Phone Unavailable Primary Care Provider Unavailabl e Encounter Details Date Type Department Care Team (Late st Contact Info) Description 10/31/2013 2:16 PM DATE NIGHT SITTER - 10/31/2013 4:00 PM DATE NIGHT SITTER Hospital Encounter [facility] CLINCONV Ramy Hua. Perforation of tympanic membrane; Infective otitis externa Social History Tobacco Use Types Packs/Day Years Used Date Smoking Tobacco: Never Assessed Comments Unknown Sex and Gender Information Value Date Recorded Sex Assigned at Not on file Legal Sex Female 7:48 PM DATE NIGHT SITTER Gender Identity Not on file Sexual Orientation Not on file documented as of this encounter Plan of Treatment Not on file documented as of this encounter Visit Diagnoses Diagnosis Perforation of tympanic membrane Infective otitis externa documented in this encounter
--- OUTSIDE RECORDS SUMMARY | 2024-11-12 05:51 | XMS_ITS | Encounter Summary ---
Author Organization [facility] Address [address] [place] [address] Care Team Providers Care Cotton Classer Name Role Phone Matti Balderas MD Primary Care Provider [phone] Reason for Visit * Reason Comments Arm Injury * Auth/Cert (Routine) Specialty Diagnoses / Procedures Referred By Contac t Referred To Contact Diagnoses Posterior dislocation of left elbow, initial encounter Closed dislocation of left elbow, initial encounter Procedures na Referral ID Status Reason Start Date Expiration Date Visits Re quested Visits Authorized [id number] 1 1 Encounter Details Date Type Department Care Team (Late st Contact Info) Description 04/13/2023 5:50 PM CDT - 04/13/2023 6:20 PM CDT Surgery [facility] Operating Room [address] [place] [address] Earl Bhandari DO [address] [place] [address] [place] [address] CLOSED REDUCTION - ELBOW Surgery Details Date/Time Status Location OR Service Patient Class Case Class Case Type Trauma Case? 04/13/2023 5:50 PM [facility]edics Inpatient Urgent [...] How often do you attend chur or episcopalian services? 1 to 4 times per year [...] on file Legal Sex Female 7:48 PM PRACTICE DIRECTOR Gender Identity Not on file Sexual [...] Care Everywhere. * Closed Reduction (General Information) (Namibian) * Hydrocodone/Acetaminophen (By mouth) (Namibian) documented in this encounter Medications at Time [...] signs documented in vital signs flowsheet. 04/14/23 0961 General Chart Reviewed Yes Session Type Evaluation OT Received On 04/14/23 Safe Environment Arm band checked;Patient found in supine;Session completed in gym;Gait belt utilized for all out of bed mobility Subjective Agreeable to Therapy Subjective Comment Patient is 62 yo female admitted to [facility] following fall at home and posterior [...] per pt report Prior Function Level of [place] Independent with ADLs;Independent functional transfers;Independent with ambulation;Needs [...] Therapy Additional Pertinent History Patient presents to [facility] following fall at home and posterior [...] for community distances) Prior Function Level of [place] Independent with ADLs;Independent functional transfers;Independent with ambulation;Needs [...] Conv) Past Surgical History: Procedure Laterality Date [facility] DELIVERY ONLY Section - (Added by TW Conv) [facility] CHOLECYSTECTOMY Cholecystectomy - (Added by TW Conv) [facility] LIG/TRNSXJ FLP TUBE ABDL/VAG APPR UNI/BI Tubal [...] this encounter ED Notes * Deisi Vera GLUE SPREADING 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 - 04/13/2023 10:08 AM CDT Chief complaint I tripped over the dog cage and the dog and hurt my left arm. HPI Chief Complaint Patient presents with Arm Injury HPI This 62-year-old female presents per private car from [facility] with complaints of left elbow pain secondary [...] disease (HCC) 02/19/2023 Diverticulitis 01/21/2023 CAD in [place] artery 10/24/2020 Hyperlipidemia, mixed 03/22/2017 Anxiety 03/01/2017 [...] Conv) Past Surgical History: Procedure Laterality Date [facility] DELIVERY ONLY Section - (Added by [employer] Conv) VA CHOLECYSTECTOMY Cholecystectomy - (Added by [employer]) VA LIG/TRNSXJ FLP TUBE ABDL/VAG APPR UNI/BI Tubal Ligation - (Added by [employer] Conv) Family History Problem Relation Age of Onset Lung cancer Other Malignant Lung Neoplasm - (Added by [employer] Conv) Hypertension Other Hypertension - (Added by [employer]) Diabetes Other Diabetes Mellitus - (Added by [employer]) Social History Tobacco Use Smoking status: Every Day Packs/day: 0.75 Years: 40.00 Pack years: 30.00 Types: Cigarettes Smokeless tobacco: None Vaping Use Vaping Use: Never used Substance and Sexual Activity Alcohol use: None Drug use: Yes Frequency: 2.0 times per week Types: Marijuana Sexual activity: Defer Social History Social History Narrative Unemployed : (Added by [employer] Conv) Current smoker : (Added by [employer]) Current smoker : 3 cigarettes per day; previously 1/2 ppd x 15 years (Added by [employer]) Review of Systems Review of Systems Musculoskeletal: [...] . This test is performed using the Signature Xpert Xpress plus assay. This is a [...] . This test is performed using the Signature Xpert Xpress plus assay. This is a [...] collaborator, who advised contact orthopedic surgeon. Instructed banquet steward to call education administrative assistant orthopedic surgeon for patient; awaiting response By: [...] friends. Discharge instructions reviewed with patient and/or technical account representative. Mobile pharmacy medications and/or prescriptions provided. [...] (04/14/23 0814) Admission Source: Pt admitted from [facility] due to fall. She reports she was attempting to stepover the dog and dog gate, and she tripped over the dog and gate and fell on her left elbow. Impression: Pt lives home alone in [place], [place]. She was in [facility] with friends. She is normally independent but [...] somewhere for rehab. Her preference would be [facility] as it is clos e to her home. Did discussed potential of home health with pt but she continued to voice desire of rehab as she can not care for herself at home. Plan Includes: D/C to Rehab per patient request. Primary Source of Transportation: Does the patient need discharge transport arranged?: No (04/14/23813) [facility]. Health Insurance Coverage: numberFire COMPLETE/numberFire [facility] [place] Pharmacy: [id number] - [place], [place] - [address] [facility] [address] Primary Care Provider: Deisi Andrews MD Prior to Admission: Primary Caregiver: Self Who does the patient or legal guardian want to receive education instruction and discharge plans for after care assistance?: Decline Support System: Children, Family members, Friends/neighbors Support system contact info (name, phone, availablity): Radha Malloy (Daughter) [phone] (M) Home Care Services: Yes Type of Home Care Services: electrical maintenance worker Home care service name and phone [...] a week How often do you attend scientologist or episcopalian services?: 1 to 4 times per year Do you belong to any clubs or organizations such as scientologist groups, unions, fraternal [...] (04/14/23813) Patient expects to be Discharged to: [facility], (04/14/23813) Additional Information: Patient's Identified Problem/Goal [...] Collaboration with patient, MD, direct care nurse, Fire Department Marine Engineer, and other members of the health care team to assure needed interventions completed. 2. Return patient to optimal level of self-care post discharge. 3. Franchise Specialist will follow for Discharge Planning - interventions [...] 04/13/2023 Surgeon: Surgeon(s): Earl Bhandari DO Staff: Char Puller: Karishma Macias RN Scrub: Marilu Duque ST [...] CDT) Glucose 154 70 - 199 mg/dL [facility] Comment: Interpretive Data Fasting glucose >/= [...] PM CDT 04/13/2023 10:28 PM CDT Result [facility] Earl Bhandari DO LAB BLOOD ORDERABLES Final Result [facility] [address] [facility] Department [place] [address] * (ABNORMAL) POCT glucose (04/13/2023 9:03 PM CDT) Glucose POC 207(H) 70 - 199 mg/dL [facility] Blood 04/13/2023 9:03 PM CDT 04/13/2023 9:03 PM CDT us Earl Bhandari DO LAB POCT ORDERABLES - COLEEN CE Final Result Performing Organization Address City/[facility]/ZIP Co de Phone Number [facility] [address] [place] [address] * POCT glucose (04/13/2023 6:10 PM CDT) Glucose POC 131 70 - 199 mg/dL [facility] Blood 04/13/2023 6:10 PM CDT 04/13/2023 6:10 PM CDT Earl Bhandari DO LAB POCT ORDERABLES - COLEEN CE Final Result Performing Organization Address [facility] Co de Phone Number [address] [address] * XR Elbow Left 2 Views (04/13/2023 [...] * POCT glucose (04/13/2023 4:43 PM CDT) [facility] Glucose POC 143 70 - 199 mg/dL [facility] Blood 04/13/2023 4:43 PM CDT 04/13/2023 4:43 PM CDT Earl Bhandari DO LAB POCT ORDERABLES - COLEEN CE Final Result [facility] [address] [facility] [place] [address] * XR Wrist Left 3 or More [...] 12:49 PM CDT) COVID-19 RNA Negative Negative [facility] Nasopharyngeal 04/13/2023 12 :49 PM CDT 04/13/2023 12:52 PM CDT Narrative [facility] - 04/13/2023 1:38 PM CDT Is the patient experiencing any symptoms consistent with COVID (eg. Fever, cough, shortness of breath)?->No What is the reason for testing?->Asymptomatic screening prior to procedure??or??surgery (Rapid) ??Interpretive data: Synonyms for this test include: PCR and NAAT . ??This test is performed using the Signature Xpert Xpress plus assay. This is a [...] . ??This test is performed using the Signature Xpert Xpress plus assay. This is a [...] MICROBIOLOGY - GENER AL ORDERABLES Final Result [facility] [address] [facility] [place] [address] * ECG 12 lead (04/13/2023 11:53 AM CDT) 04/13/2023 11:5 3 AM CDT Narrative [facility] - 04/13/2023 3:44 PM CDT Vent Rate: 74 bpm RR Interval: 801 msec VA Interval: 136 msec QRS Duration: 103 msec QT Interval: 377 msec QTC Interval: 405 msec P-R-T [place]: 48 - 27 - 25 degrees SINUS RHYTHM LOW QRS VOLTAGE IN PRECORDIAL LEADS BORDERLINE ECG Electronically Signed By: Chino Smith ?? [facility] Deisi Vera NP ECG ORDERABLES Final Re sult [facility] * XR Chest 1 Vw Portable [...] AM CDT) eGFR 78 mL/min/1. 73 m2 [facility] Comment: Interpretive Data Reference Interval Normal [...] NP LAB BLOOD ORDERABLES Fin al Result [facility] [address] [facility] [place] [address] * Differential, auto (04/13/2023 11:30 AM CDT) Pathologist [facility] Neutrophil abs 6.2 1.7 - 6.5 K/cumm [facility] Imm gran abs 0.1 0.0 - 0.1 K/cumm [facility] Lymphocyte abs 2.2 0.8 - 3.3 K/cumm [facility] Monocyte abs 0.7 0.2 - 0.8 K/cumm [facility] Eosinophil abs 0.3 0.0 - 0.5 K/cumm [facility] Basophil abs 0.1 0.0 - 0.1 K/cumm [facility] Neutrophil pct 65.3 % [facility] Comment: Interpretive Data Percent cell count reference ranges are not reported, since discordance with absolute values may lead to misinterpretation of CBC data. Current Interpretive Data was last revised on 2018. Imm gran pct 0.5 % [facility] Comment: Interpretive Data Percent cell count reference ranges are not reported, since discordance with absolute values may lead to misinterpretation of CBC data. Current Interpretive Data was last revised on 2018. Lymphocyte pct 23.3 % [facility] Comment: Interpretive Data Percent cell count reference ranges are not reported, since discordance with absolute values may lead to misinterpretation of CBC data. Current Interpretive Data was last revised on 2018. Monocyte pct 7.6 % [facility] Comment: Interpretive Data Percent cell count reference ranges are not reported, since discordance with absolute values may lead to misinterpretation of CBC data. Current Interpretive Data was last revised on 2018. Eosinophil pct 2.8 % [facility] Comment: Interpretive Data Percent cell count reference ranges are not reported, since discordance with absolute values may lead to misinterpretation of CBC data. Current Interpretive Data was last revised on 2018. Basophil pct 0.5 % [facility] Comment: Interpretive Data Percent cell count reference ranges are not reported, since discordance with absolute values may lead to misinterpretation of CBC data. Current Interpretive Data was last revised on 2018. Blood 04/13/2023 11:3 0 AM CDT 04/13/2023 11:54 AM CDT us Deisi Vera NP LAB BLOOD ORDERABLES Fin al Result [facility] [address] [facility] [place] [address] * (ABNORMAL) Comprehensive metabolic panel (04/13/2023 11:30 AM CDT) Sodium 139 135 - 145 mmol/L [facility] Potassium, pl 4.4 3.3 - 4.9 mmol/L [facility] Chloride 104 97 - 110 mmol/L [facility] CO2 24 22 - 32 mmol/L [facility] Anion gap 11 2 - 15 mmol/L [facility] BUN 28(H) 8 - 25 mg/dL [facility] Creatinine 0.85 0.60 - 1.10 mg/dL [facility] Glucose 184 70 - 199 mg/dL [facility] Comment: Interpretive Data Fasting glucose >/= [...] 2022. Calcium 9.4 8.5 - 10.3 mg/dL [facility] Bilirubin, total 0.2 0.1 - 1.2 mg/dL [facility] Protein, pl 6.8 6.5 - 8.5 g/dL [facility] Albumin 4.0 3.5 - 5.2 g/dL [facility] Alk phos 99 40 - 130 Units/L [facility] ALT 13 7 - 45 Units/L [facility] AST 12 10 - 45 Units/L [facility] Blood 04/13/2023 11:3 0 AM CDT 04/13/2023 11:54 AM CDT us Deisi Vera NP LAB BLOOD ORDERABLES Fin al Result [facility] [address] [facility] Department [place] [address] * CBC with auto differential (04/13/2023 11:30 AM CDT) Pathologist [facility] WBC 9.5 3.8 - 9.9 K/cumm [facility] Hgb 13.1 11.9 - 15.5 g/dL [facility] Hct 39.9 35.6 - 45.5 % [facility] Plt 216 150 - 400 K/cumm [facility] MPV 10.0 9.1 - 12.3 fL [facility] RBC 4.53 3.90 - 5.20 M/cumm [facility] MCV 88.1 81.3 - 96.4 fL [facility] MCH 28.9 27.1 - 33.3 pg [facility] MCHC 32.8 32.3 - 35.7 g/dL [facility] RDW CV 13.3 11.1 - 14.9 % [facility] RDW SD 43.0 35.7 - 48.1 fL [facility] NRBC abs 0.00 0.00 - 0.01 K/cumm [facility] Blood 04/13/2023 11:3 0 AM CDT 04/13/2023 11:54 AM CDT Deisi Vera GLUE SPREADING 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 LAB BLOOD ORDERABLES Fin al Result [facility] [address] [facility] [place] [address] * XR Elbow Left 2 Views (04/13/2023 [...] 04/13/2023 documented in this encounter Care Teams Cotton Classer Relationship Specialty Start Date End Date Matti Balderas MD PCP - General Family Medicine 09/24/21 04/13/23 documented as of this encounter
--- OUTSIDE RECORDS SUMMARY | 2024-11-12 05:51 | XMS_ITS | Encounter Summary ---
Author Organization [facility] Facility Care Team Providers Care Aircraft Engine Mechanic Name Role Phone Unavailable Primary Care Provider Unavailabl e Encounter Details Date Type Department Care Team (Late st Contact Info) Description 10/10/2013 12:59 PM MULTIMEDIA DESIGNER - 10/10/2013 4:00 PM MULTIMEDIA DESIGNER Hospital Encounter [facility] CLINCONV Ramy Hua. Perforation of tympanic membrane; Unemployed; Tobacco use disorder Social History Tobacco Use Types Packs/Day Years Used Date Smoking Tobacco: Never Assessed Comments Unknown Sex and Gender Information Value Date Recorded Sex Assigned at Not on file Legal Sex Female 7:48 PM MULTIMEDIA DESIGNER Gender Identity Not on file Sexual Orientation Not on file documented as of this encounter Plan of Treatment Not on file documented as of this encounter Visit Diagnoses Diagnosis Perforation of tympanic membrane Unemployed Unemployment Tobacco use disorder documented in this encounter
--- OUTSIDE RECORDS SUMMARY | 2024-11-12 05:51 | XMS_ITS | Encounter Summary ---
Author Organization [facility] Address [address] [place] [address] Care Team Providers Care Research Librarian Name Role Phone Matti Balderas MD Primary Care Provider [phone] Encounter Details Date Type Department Care Team (Late st Contact Info) Description 06/25/[address] [facility] Cardiology [address] [place] [address] Liliana Thomas MD [address] [facility] [address] [place] [address] Social History Tobacco Use Types Packs/Day Years Used Date Smoking Tobacco: Never Assessed Comments Unknown Sex and Gender Information Value Date Recorded Sex Assigned at Not on file Legal Sex Female 7:48 PM SALES PRODUCT MANAGER Gender Identity Not on file Sexual [...] filedocumented in this encounter Care Teams Research Librarian Relationship Specialty Start Date End Date Matti Balderas MD PCP - General Family Medicine 09/24/21 04/13/23 documented as of this encounter
--- OUTSIDE RECORDS SUMMARY | 2024-11-12 05:51 | XMS_ITS | Encounter Summary ---
Author Organization [facility] Healthcare Address [address] [place] [address] Care Team Providers Care Intermediate Teacher Name Role Phone Unavailable Primary Care Provider Unavailabl e Encounter Details Date Type Department Care Team (Latest Contact Info) Description 01/30/2015 1:50 PM CDT - 01/30/2015 6:30 PM CDT Hospital Encounter [facility] Martir Garcia MD [address] [address] Esophageal reflux; Nausea without vomiting; Dysphagia; Encounter for long-term (current) use of other medications; Essential hypertension; Other and unspecified hyperlipidemia; Asthma Social History Tobacco Use Types Packs/Day Years Used Date Smoking Tobacco: Never Assessed Comments Unknown Sex and Gender Information Value Date Recorded Sex Assigned at Not on file Legal Sex Female 7:48 PM NIB ASSEMBLER Gender Identity Not on file Sexual [...]
--- OUTSIDE RECORDS SUMMARY | 2024-11-12 05:51 | XMS_ITS | Encounter Summary ---
Author Organization [facility] Facility Care Team Providers Care Employment Assistant Name Role Phone Unavailable Primary Care Provider Unavailabl e Encounter Details Date Type Department Care Team (Late st Contact Info) Description 04/18/2012 12:37 PM CDT - 04/18/2012 4:00 PM T Hospital Encounter [facility] Sanjeev Stephen MD [facility] [address] [address] Otitis media; Obstruction of eustachian tube; Hypertrophy of adenoids alone; Other diseases of vocal cords; Tobacco use disorder Social History Tobacco Use Types Packs/Day Years Used Date Smoking Tobacco: Never Assessed Comments Unknown Sex and Gender Information Value Date Recorded Sex Assigned at Not on file Legal Sex Female 7:48 PM TONGUE PRESSER Gender Identity Not on file Sexual Orientation Not on file documented as of this encounter Plan of Treatment Not on file documented as of this encounter Visit Diagnoses Diagnosis Otitis media Unspecified otitis media Obstruction of eustachian tube Hypertrophy of adenoids alone Other diseases of vocal cords Tobacco use disorder documented in this encounter
--- OUTSIDE RECORDS SUMMARY | 2024-11-12 05:51 | XMS_ITS | Encounter Summary ---
Author Organization [facility] Address [address] [place] [address] Care Team Providers Care Cmo Name Role Phone Matti Balderas MD Primary Care Provider [phone] Encounter Details Date Type Department Care Team (Late st Contact Info) Description 01/06/2023 Orders Only [facility] Cardiology [address] [place] [address] Jose A Gaines MD [facility] [place] [id number] Social History Tobacco Use Types Packs/Day Years Used Date Smoking Tobacco: Never Assessed Comments Unknown Sex and Gender Information Value Date Recorded Sex Assigned at Not on file Legal Sex Female 7:48 PM HELPDESK SPECIALIST Gender Identity Not on file Sexual [...] on filedocumented in this encounter Care Teams Cmo Relationship Specialty Start Date End Date Matti Balderas MD PCP - General Family Medicine 09/24/21 04/13/23 documented as of this encounter
--- OUTSIDE RECORDS SUMMARY | 2024-11-12 05:51 | XMS_ITS | Encounter Summary ---
Author Organization [facility] Address [address] [place] [address] Care Team Providers Care Advertising Account Executive Name Role Phone Matti Balderas MD Primary Care Provider [phone] Encounter Details Date Type Department Care Team (Late st Contact Info) Description 06/25/2022 Orders Only [facility] Cardiology [address] [place] [address] Liliana Thomas MD [address] [place] [address] Social History Tobacco Use Types Packs/Day Years Used Date Smoking Tobacco: Never Assessed Comments Unknown Sex and Gender Information Value Date Recorded Sex Assigned at Not on file Legal Sex Female 7:48 PM CLUB FORMER Gender Identity Not on file Sexual Orientation Not on file documented as of this encounter Plan of Treatment Not on file documented as of this encounter Procedures Procedure Name Priority Date/Time Associated Diagnosis Comments CARDIOLOGY DOCUMENT SCAN Routine 06/25/2022 documented in this encounter Results * Cardiology Document Scan (06/25/2022) Anatomical Region Laterality Modality Other Kely Moran PLATE INSPECTOR CV CARDIAC SERVICES PROCEDUR ES Final Result documented in this encounter Visit Diagnoses Not on filedocumented in this encounter Care Teams Advertising Account Executive Relationship Specialty Start Date End Date Matti Balderas MD PCP - General Family Medicine 09/24/21 04/13/23 documented as of this encounter
--- OUTSIDE RECORDS SUMMARY | 2024-11-12 05:51 | XMS_ITS | Encounter Summary ---
Author Organization [facility] Facility Care Team Providers Care Podiatric Surgeon Name Role Phone Unavailable Primary Care Provider Unavailabl e Encounter Details Date Type Department Care Team (Late st Contact Info) Description 12/06/2012 12:12 PM GUIDE CHANGER - 12/06/2012 4:00 PM GUIDE CHANGER Hospital Encounter [facility] NALINI Montoya, Sanjeev Hess MD [address] [address] Social History Tobacco Use Types Packs/Day Years Used Date Smoking Tobacco: Never Assessed Comments Unknown Sex and Gender Information Value Date Recorded Sex Assigned at Not on file Legal Sex Female 7:48 PM GUIDE CHANGER Gender Identity Not on file Sexual Orientation Not on file documented as of this encounter Plan of Treatment Not on file documented as of this encounter Visit Diagnoses Not on filedocumented in this encounter
--- OUTSIDE RECORDS SUMMARY | 2024-11-12 05:51 | XMS_ITS | Encounter Summary ---
Author Organization [facility] Facility Care Team Providers Care Catering Service Manager Name Role Phone Unavailable Primary Care Provider Unavailabl e Encounter Details Date Type Department Care Team (Late st Contact Info) Description 05/13/2012 7:21 AM CDT - 05/13/2012 4:00 PM T Hospital Encounter [facility] Mars Hahn MD PhD [address] [address] Other diseases of vocal cords; Other specified pre-operative examination Social History Tobacco Use Types Packs/Day Years Used Date Smoking Tobacco: Never Assessed Comments Unknown Sex and Gender Information Value Date Recorded Sex Assigned at Not on file 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
--- OUTSIDE RECORDS SUMMARY | 2024-11-12 05:51 | XMS_ITS | Encounter Summary ---
Author Organization [facility] Facility Care Team Providers Care Dental Internship Name Role Phone Unavailable Primary Care Provider Unavailabl e Encounter Details Date Type Department Care Team (Late st Contact Info) Description 05/31/2012 12:57 PM CDT - 05/31/2012 4:00 PM T Hospital Encounter [facility] Sanjeev Stephen MD [facility] [address] [address] Other aftercare following surgery; Acute pharyngitis; Otitis media; Other specified chronic obstructive airways disease; Candidiasis of other specified sites; Tobacco use disorder Social History Tobacco Use Types Packs/Day Years Used Date Smoking Tobacco: Never Assessed Comments Unknown Sex and Gender Information Value Date Recorded Sex Assigned at Not on file 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
--- OUTSIDE RECORDS SUMMARY | 2024-11-12 05:51 | XMS_ITS | Encounter Summary ---
Author Organization [facility] Facility Care Team Providers Care Nailhead Setter Name Role Phone Unavailable Primary Care Provider Unavailabl e Encounter Details Date Type Department Care Team (Late st Contact Info) Description 05/20/2012 5:53 AM CDT - 05/20/2012 4:00 PM T Hospital Encounter [facility] Mars Hahn MD PhD [address] [address] Candidiasis of other specified sites; Other diseases [...] on file Legal Sex Female 7:48 PM NARROW GAUGE BRAKEMAN Gender Identity Not on file Sexual Orientation [...]
--- OUTSIDE RECORDS SUMMARY | 2024-11-12 06:00 | XMS_ITS | Continuity of Care Document ---
Author Organization [place] [facility] [employer] [facility], [facility] [place] Address [address] [place] [address] Care Team Providers Care Framing Carpenter Name Role Phone DARLEEN SALGADO ZACHARY Primary Care Provider DARLEEN SALGADO ZACHARY Referring Provider Assessment No assessment recorded. Plan of Treatment Reminders Order Date Submit Date Provider Last Modified By Organization Details Last Modified Time Details Appointments None recorded. Lab glycohemogl obin, total, blood [address] (Lab), [address] [place], [address], 10:07:37 CMP, serum or plasma 2023 [facility] (Lab), [address] [place], [address], 21:36:40 lipid panel, serum [address] (Lab), [address] [place], [address], 10:07:37 hepatic function panel, serum [address] (Lab), [address] [place], [address], 10:07:37 TSH, serum or plasma 2023 [facility] (Lab), [address] [place], [address], 21:36:40 vitamin D, 25-hydroxy, total, serum 2023 [email or web address] [facility] (Lab), [address] [place], [address], 10:07:37 CBC w/ auto diff 2023 [facility] (Lab), [address] [place], [address], 21:36:40 Referral None recorded. Procedures None recorded. Surgeries None recorded. Imaging MAMMO, screening, digital, bilateral - Please call pt to schedule 2023 [email or web address] [address] [facility] ([facility] Sched[facility]), [address] [place], [address], 09:02:29 Medication Orders cyclobenzap rine 10 mg tablet 2023 [id number], [address], [place], [place], [id number], 10:56:44 Symbicort 160 mcg-4.5 mcg/actuati on HFA aerosol inhaler 2023 [facility] #[id number], [address], [place], [place], [id number], 10:56:45 Patient TargetsNo targets recorded. Patient InstructionsNo instructions recorded. Reason for Referral None Reported. Results Created Date Observation Date Name Description Value Unit Range Abnormal Flag Note LastModifiedBy Organization Detail LastModifiedTime 09/13/20 24 09/13/2024 XR, hand, 2 view No observ ation record ed. [email or web address] [address], [place], [address], 09/13/2024 16:59:37 Result Notes None recorded. Problems Name Problem SNOMED Code Status Onset Date Resolution Date Notes Provider Name and Address Organization Details Recorded Time Neoplasm of urinary bladder 726761839 Active 2021 Not Available [facility] 4 07:30:46 Hyperchole sterolemia 83497451 Active 2016 Not Available [facility] 4 07:30:46 Chronic obstructiv e pulmonary disease 79591969 Active 2016 Not Available [facility] 4 07:30:46 Malignant neoplasm of lateral wall of urinary bladder 623822438 Active 2021 Not Available [facility] 4 07:30:46 Cobalamin deficiency 176705159 Active 2022 Not Available [facility] 4 07:30:46 Asthma 017497515 Active 2016 Not Available [facility] 4 07:30:46 Cerebrovas cular accident 042187664 Active 2016 Not Available [facility] 4 07:30:46 Osteoarthr itis of knee 056948632 Active Not Available [facility] 4 07:30:46 Injury of ribs 539346401 Active 2018 Not Available [facility] 4 07:30:46 Enthesopat hy of hip region 97530515 Active Not Available [facility] 4 07:30:46 Pain in left foot 1042344215894 07 Active 2020 Not Available [facility] 4 07:30:46 Depressive disorder 06141186 Active 2016 Not Available [facility] 4 07:30:46 Hypertensi ve disorder 82285036 Active 2016 Not Available [facility] 4 07:30:46 Osteoarthr itis 620017080 Active Not Available [facility] 4 07:30:46 Peripheral vascular disease 273623410 Active 2017 Not Available [facility] 4 07:30:47 Porokerato sis 851433016 Active 2020 Not Available [facility] 4 07:30:47 Obesity 192210375 Active 2016 Not Available [facility] 4 07:30:47 Tubular adenoma of colon 645225086 Active 2018 Not Available [facility] 4 07:30:47 Anxiety 24583361 Active 2016 Not Available [facility] 4 07:30:47 Chronic colitis 44019383 Active 2018 Not Available [facility] 4 07:30:47 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 430542944 Active 2018 Not Available [facility] 4 07:30:47 Diabetes mellitus 85665944 Active 2016 Not Available [facility] 4 07:30:47 Mass of vocal cord Active 2018 Not Available [facility] 4 07:30:47 Malignant neoplasm of urinary bladder 036603738 Active 2022 Not Available [facility] 4 07:30:47 Chronic back pain 738056887 Active 2022 Not Available [facility] 4 07:30:46 Cigarette smoker 27223618 Active 2022 Not Available [facility] 4 07:30:47 Diverticul itis 274290646 Active 2022 Not Available [facility] 4 07:30:46 Essential hypertensi on 55952039 Active 2022 Not Available [facility] 4 07:30:47 Abdominal pain 73635139 Active 2022 Not Available [facility] 4 07:30:46 Type 2 diabetes mellitus 84174371 Active 2022 Not Available [facility] 4 07:30:47 Bilateral osteoarthr itis of knees 1588697632984 07 Active 2022 Not Available [facility] 4 07:30:46 Pain in right hip joint 8339660357379 02 Active 2022 Not Available [facility] 4 07:30:46 Trochanter ic bursitis of right hip 8213847444624 00 Active 2022 Not Available [facility] 4 07:30:46 Dysuria 20415829 Active 2022 Not Available [facility] 4 07:30:47 Acute exacerbati on of chronic obstructiv e pulmonary disease 636676429 Active 2022 Not Available [facility] 4 07:30:46 Blood in urine 56822748 Active 2022 Not Available [facility] 4 07:30:46 Vaginitis 76130414 Active 2022 Not Available [facility] 4 07:30:46 Allergic rhinitis 18593641 Active 2022 Not Available [facility] 4 07:30:47 Pain of left wrist 5999909011937 02 Active 2022 Not Available [facility] 4 07:30:46 Pain of left elbow joint 4612411247838 9104 Active 2022 Not Available [facility] 4 07:30:46 Pain of left forearm 3429862650953 09 Active 2022 Not Available [facility] 4 07:30:46 Multiple joint pain 22460932 Active 2022 Not Available [facility] 4 07:30:46 Acute sinusitis 38652809 Active 2022 Not Available [facility] 4 07:30:46 Dislocatio n of elbow joint 280705587 Active 2022 Not Available [facility] 4 07:30:47 Closed fracture of coronoid process of ulna 54753628 Active 2022 Not Available [facility] 4 07:30:47 Closed fracture of distal end of radius 28117968 Active 2022 Not Available [facility] 4 07:30:46 Dislocatio n of elbow joint 934080304 Active 2022 Not Available [facility] 4 07:30:47 Closed fracture of distal end of radius 80040795 Active 2022 Not Available [facility] 4 07:30:46 Increased frequency of urination 140993535 Active 2022 Not Available [facility] 4 07:30:46 Acute urinary tract infection 685477915 Active 2022 [facility] Available [facility] 4 07:30:47 Low back pain 443019645 Active 2022 Not Available [facility] 4 07:30:46 Vitamin D deficiency 07896966 Active 2022 Not Available [facility] 4 07:30:46 Hyperlipid emia 55897551 Active 2022 Not Available [facility] 4 07:30:47 Closed traumatic dislocatio n of elbow joint 6958820 Active 2022 Not Available [facility] 4 07:30:46 Nausea 388238147 Active 2022 Not Available [facility] 4 07:30:47 Heartburn 40673850 Active 2022 Not Available [facility] 4 07:30:46 Tachycardi a 2493500 Active 2022 Not Available [facility] 4 07:30:46 Cough 40664226 Active 2022 Not Available [facility] 4 07:30:47 Hypomagnes emia 810758240 Active 2023 Not Available [facility] 4 07:30:46 Eczema 81362692 Active 2023 Not Available [facility] 4 07:30:47 Pain in throat 060128845 Active 2023 Deisi Andrews MD [address], [place] [address], [place], [address] , [facility] 4 13:19:57 Degenerati on of lumbar interverte bral disc 37506325 Active 2023 Deisi Andrews MD [address] [place] [address], [place], [address] , [facility] [employer] [facility] 4 14:40:03 Abscess of sigmoid colon 068646717 Active 2023 Deisi Andrews MD [address], [place] [address], [place], [address] , [facility] [employer] [facility] 4 14:40:16 Pain of bilateral knee joints 5206160363563 04 Active 2023 Masha Lozada CNA null, [facility] [employer] [facility] 4 12:11:51 Seasonal allergy 553088122 Active 2023 DARLEEN Carroll [address], [address] , [facility] [employer] [facility] 4 11:05:30 Problem Notes None recorded. Procedures Surgical History Date Name Laterality Status Provider Name and Address Organization Details Recorded Time 10/01/20 23 colonoscopy completed Deisi Andrews MD [address], [place] [address], [place], [address], [facility] [employer] [facility] 01/04/2024 14:43:39 09/13/20 23 Transitional_Ca re_Management completed Beti Malloy RN [facility] [employer] [facility] 09/13/2023 11:04:05 01/22/20 23 Transitional_Ca re_Management completed Dorothy Viveros MA [facility] [employer] [facility] 01/21/2023 08:46:49 11/15/19 20 Unlisted px femur/knee completed Not Available [facility] 01/13/2023 13:51:47 Tubal Ligation completed Not Available [facility] 01/13/2023 13:51:47 section completed Not Available [facility] 01/13/2023 13:51:47 procedure on carotid body completed Not Available [facility] 01/13/2023 13:51:47 Ear Tube Placement completed Not Available [facility] 01/13/2023 13:51:47 Imaging Results None recorded. Procedure Notes None recorded. Medical Equipment None Reported. Allergies Allergen ID Allergen Name Allergen Category Reaction Reaction Severity Criticality Documentation Date Start Date Code Code System Note Provider Name and Address Organization Details Recorded Time 12066 wasp venoms environme nt angioedem a facial swelling moderate Not available Not available 01/13/2023 04526 RxNorm vernona todd amado s JE KumarA serg, [facility] CURRENT 4 11:21:45 68829 simvastat in medicatio n other Not available Not available 01/13/2023 82403 RxNorm ALL SATIN S!!! can't walk JE KumarA serg, [facility] [employer] 4 11:21:21 33944 Risperdal medicatio n Not available Not available Not available 01/13/2023 72768 8 RxNorm face draws up NATALYA Kumar, [facility] CURRENT 4 11:20:46 82596 Medicinal product containin g penicilli n and acting as antibacte rial agent (product) medicatio n rash Not available Not available 01/13/2023 94883 05 SNOMED Deisi Andrews MD [address] [facility] [address], [place], [address] [facility] [employer] 3 12:22:06 56938 morphine medicatio n other Not available Not available 01/13/2023 7052 RxNorm Not Available [facility] 3 13:57:09 87613 Haldol medicatio n Not available Not available Not available 01/13/2023 32483 9 RxNorm face draws up EJ KumarA serg, [facility] [employer] 4 11:20:29 64423 Halcion medicatio n other Not available Not available 01/13/2023 42194 3 RxNorm face draws up Masha Lozada [employer] serg, [facility] [employer] 4 11:19:53 Medications Name Sig Start Date [...] mg by injectio n route. [address] [facility]: 0003-049 4-20 Not Available Not Available Not [...] administ ered by the provider 01/[address] [facility]: 0409-427 6-17 Not Available Not Available Not [...] %) injection solution in office [address] [facility] [address]-36 4- Not Available Not Available Not Available [...] Updated DateTime 4 157.48 cm 33.8 kg/m2 50214.5 9 g 96.4 [degF] 74 /min 95 % 95 % 118 mm[Hg] 80 mm[Hg] Beti Malloy RN [place] [facility] [place] [facility] 4 10:30:08 Social History Question Answer Notes LastModified by Organizat ion Details LastModified Time Tobacco Smoking Status Current Every Day Smoker started age 16 Not Available [facility] 01/13/2023 13:51:45 What Is Your Level Of Alcohol Consumption? None [id number] Information not available 01/13/2023 What Is Your Level Of Caffeine Consumption? Moderate MIGRATION.56988 20495 Information not available 01/13/2023 In The 14 Days Before Symptom Onset, Have You Had Close Contact With A Laboratory-confir med COVID-19 While That Case Was Ill? No MIGRATION.79377 22156 Information not available 01/13/2023 In The 14 Days Before Symptom Onset, Have You Had Close Contact With A Person Who Is Under Investigation For COVID-19 While That Person Was Ill? No MIGRATION.10680 23151 Information not available 01/13/2023 What Type Of Diet Are You Following? REGULAR MIGRATION.06824 39281 Information not available 01/13/2023 Which Illicit Or Recreational Drugs Have You Used? Marijuana MIGRATION.00535 24421 Information not available 01/13/2023 What Was The Date Of Your Most Recent Tobacco Screening? 12/30/2022 MIGRATION.72791 69525 Information not available 01/13/2023 What Is Your Current Pack Years? 30ormorepacky ears MIGRATION.25830 44942 Information not available 01/13/2023 How Much Tobacco Do You Smoke? 1 PPD MIGRATION.44912 20235 Information not available 01/13/2023 Do You Use Any Illicit Or Recreational Drugs? Yes MIGRATION.86319 38554 Information not available 01/13/2023 Has Tobacco Cessation Counseling Been Provided? No MIGRATION.39772 07524 Information not available 01/13/2023 How Many Years Have You Smoked Tobacco? 45 [email or web address] Information not available 06/05/2024 Have You Recently Traveled Abroad? No MIGRATION.18817 56125 Information not available 01/13/2023 Have You Used IV Drugs? No MIGRATION.37203 69244 Information not available 01/13/2023 Do You Have Any Dietary Restrictions? No MIGRATION.83587 26603 Information not available 01/13/2023 Do You Or Have You Ever Used Any Other Forms Of Tobacco Or Nicotine? No MIGRATION.51143 57899 Information not available 01/13/2023 Sex: Unknown Functional Status Question Answer Note LastModified by Organizat ion Details LastModified Time What is your exercise level? Occasional [email or web address] Information not available 02/15/2023 Mental Status None recorded. Family History Relationship Description Onset Age of this Age Resolved Age Notes LastModified by Organization Details LastModified Time Sister Heart disease [email or web address] Not available 2023 11:25:33 Sister Hypertensive disorder [email or web address] Not available 2023 11:25:41 Sister Family history of malignant neoplasm eric r cancer [email or web address] Not available 09/29/2024 11:38:38 Sister Family history of stroke Not available 09/29 11:38:38 Father Diabetes mellitus [id number] Not available 01/13/2023 13:51:48 Medical History Condition [...] virus, quadrivalent, preservative 0 completed Not Available [facility] 12/09/2023 07:30:48 COVID-19, mRNA, LNP-S, PF, 30 mcg/0.3 mL dose 1 completed Not Available [facility] 12/09/2023 07:30:48 pneumococcal polysaccharide PPV23 6 completed Not Available [facility] 12/09/2023 07:30:48 Tdap 1 completed Not Available [facility] 12/09/2023 07:30:48 Influenza, split virus, quadrivalent, PF 5 completed Not Available [facility] 12/09/2023 07:30:48 Influenza, split virus, quadrivalent, PF 9 completed Not Available [facility] 12/09/2023 07:30:48 Influenza, split virus, quadrivalent, PF 6 completed Not Available [facility] 12/09/2023 07:30:48 Influenza, MDCK, quadrivalent, PF 2 completed Not Available [facility] 12/09/2023 07:30:48 COVID-19, mRNA, LNP-S, PF, 30 mcg/0.3 mL dose 1 completed Not Available [facility] 12/09/2023 07:30:48 COVID-19, mRNA, LNP-S, PF, 30 mcg/0.3 mL dose 1 completed Not Available [facility] 12/09/2023 07:30:48 PCV10 6 completed Not Available [facility] 12/09/2023 07:30:48 Tdap 9 completed Not Available [facility] 12/09/2023 07:30:48 Influenza, split virus, quadrivalent, PF 7 completed Not Available [facility] 12/09/2023 07:30:48 Influenza, split virus, quadrivalent, PF 8 completed Not Available [facility] 12/09/2023 07:30:48 Past Encounters Encounter ID Performer Location Encounter Start Date Encounter Closed Date Diagnosis/Indication Diagnosis SNOMED-CT Code Diagnosis ICD10 Code [id number] DARLEEN Carroll [facility] Primary Care [facility] [address] [place] [address] 08/08/2024 10:53:06 08/08/2024 11:36:59 Malignant neoplasm of urinary bladder 273267713 C67.9 Seasonal allergy 8848988 04 J30.2 Low back pain 990268429 M54.50 [id number] DARLEEN Andrea [facility] [address] [place] [address] 08/24/2024 10:23:41 08/24/2024 11:14:49 Adult health examination 078058213 Z00.00 Cerebrovas cular accident 906965359 I63.9 Chronic ob structive pulmonary disease 80076306 J44.9 Cigarette smoker 1840227 7 F17.210 Depressive disorder 3548 9007 F32.A Diabetes mellitus 066998 09 E11.9 Eczema 14823247 L30.9 Essential hypertension 59423475 I10 Hyperlipidemia 14065490 E78.5 Vitamin D deficiency 347 91338 E55.9 Body mass index 30+ - obesity 688993300 Z68.33 Screening mammography 24 620039 Z12.31 Spasm 19644153 R25.2 Health Concerns Section Related Observation LastModified by Organization Detai ls LastModified Time None Recorded Concern Status LastModified by Organization Details LastModified Time None Recorded Payers Encounter Date Sequence Insurance Name Policy Number Policy Larsen Covered Member ID Larsen Member ID Guarantor Name 08/24/2024 1 [facility] - DOS ON OR AFTER 21 (MEDICAID REPLACEMENT - HMO) Rody Zaidi [id number] Rody Zaidi Notes Date Note Type Note Provider Name and Address Organization Details Recorded Time 08/24/2024 text/html Patient is a 63 year old female that presents to the office for annual wellness. Patient reports she is doing well on current medications. Patient is receiving BCG treatments for bladder cancer--has 3 treatments remaining. Patient denies any other medical concerns including chest pain and shortness of breath, nausea vomiting and diarrhea. labs-orderedmammo gram-orderedcolon oscopy- (09/2023)WWE- sees GYNFlu-awareCovid -UTDTdap-UTDShing dht-MLEBeeexr-IOO BRIANA Andrea-Gerardo [address] [facility] [facility] [address], [place], [address], [place] [facility] [employer] [facility] [employer] 08/24/2024 13:29:47 OBGyn Episode No OBEpisode recorded.
--- OUTSIDE RECORDS SUMMARY | 2024-11-12 06:00 | XMS_ITS | Data Portability ---
Author Organization [place] [facility], Main Office Address [address] [place] [address] Care Team Providers Care Food Checker Name Role Phone DARLEEN MONTOYA ZACHARY Primary Care Provider DARLEEN MONTOYA ZACHARY Referring Provider Assessment Encounter Date Assessment [...] recorded. Lab glycohemogl obin, total, blood 2023 024 [email or web address] [facility] (Lab), [address] [place], [address], 10:07:37 CMP, serum or plasma 2023 [facility] (Lab), [address] [place], [address], 21:36:40 lipid panel, serum [address] (Lab), [address] [place], [address], 4 10:07:37 hepatic function panel, serum [address] (Lab), [address] [place], [address], 4 10:07:37 TSH, serum or plasma 2023 [facility] (Lab), [address] [place], [address], 4 21:36:40 vitamin D, 25-hydroxy, total, serum [address] (Lab), [address] [place], [address], 10:07:37 CBC w/ auto diff 2023 [facility] (Lab), [address] [place], [address], 21:36:40 Referral None recorded. Procedures injection/a spiration joint/bursa (PROC) 2023 [email or web address] In-Office Order, Internal Use Only DO Not Attach Compendium DO Not Attach Compendium, Do Not Delete/merge, [id number] 11:41:26 Surgeries None recorded. Imaging MAMMO, screening, digital, bilateral - Please call pt to schedule [email or web address] [facility] ([facility] Sched[facility]), [address], [place], [address], 4 09:02:29 Medication Orders ketorolac 60 mg/2 mL intramuscul ar solution 2023 024 [email or web address] Not available 4 15:37:49 fluticasone propionate 50 mcg/actuati on nasal spray,suspe nsion 2023 024 [facility], [address] , [place], [place], [id number], 4 11:10:22 montelukast 10 mg tablet 2023 024 CLYDE 1001 [facility], [address] [facility], [place], [place], [id number], 4 11:10:22 ketorolac 30 mg/mL (1 mL) injection solution 2023 024 [id number] Not available 04:24:08 cyclobenzap rine 10 mg tablet 2023 024 [facility], [address] , [place], [place], [id number], 4 10:56:44 Symbicort 160 mcg-4.5 mcg/actuati on HFA aerosol inhaler 2023 024 [facility], [address], [place], [place], [id number], 4 10:56:45 bupivacaine HCl 0.5 % (5 mg/mL) injection solution 2023 024 [email or web address] [facility], [address] , [place], [place], [id number], 4 12:16:23 Kenalog 10 mg/mL suspension for injection 2023 024 [id number] [facility] #08197, [address] [facility], [place], [place], [id number], 4 04:24:09 prednisone 10 mg tablets in a dose pack 2023 024 [email or web address] [facility] #08336, [address] [facility] [address], [place], [place], [id number], 4 12:16:23 Patient TargetsNo targets recorded. Patient Instructions Encounter Date Encounter Id Patient Instructions Last Modified By Organization Details Last Modified Time 09/29/2024 [id number] viscosupplementa tion treatment* Not available 10/02/2024 11:56:29 Reason for Referral None Reported. Results Created Date Observation Date Name Description Value Unit Range Abnormal Flag Note LastModifiedBy Organization Detail LastModifiedTime 06/05/20 24 XR, knee No observ ation record ed. [email or web address] [facility] [place] [address], [place], [address], 06/05/2024 11:59:04 06/05/20 24 XR, hip + pelvi s, unila teral No observ ation record ed. [email or web address] [facility] [place] [address] [facility] [address], [place], [address], 06/05/2024 12:00:08 06/22/20 24 06/22/2024 CT, brain , w/o contr ast No observ ation record ed. [address], [place], [address], 06/22/2024 17:50:10 06/22/20 24 06/22/2024 XR, chest , 1 view No observ ation record ed. [address] [facility] [address], [place], [address], 06/22/2024 17:50:25 06/28/20 24 06/28/2024 CT, abdom en + pelvi s, w/ contr ast No observ ation record ed. [email or web address] [facility] [address], [place], [address], 07/12/2024 14:20:43 09/13/20 24 09/13/2024 XR, hand, 2 view No observ ation record ed. [email or web address] [facility] [address], [place], [address], 09/13/2024 16:59:37 Result Notes None recorded. Problems Name Problem SNOMED Code Status Onset Date Resolution Date Notes Provider Name and Address Organization Details Recorded Time Neoplasm of urinary bladder 707760782 Active 2021 Not Available [facility] 4 07:30:46 Hyperchole sterolemia 49109094 Active 2016 [facility] Available [facility] 4 07:30:46 Chronic obstructiv e pulmonary disease 78027032 Active 2016 Not Available [facility] 4 07:30:46 Malignant neoplasm of lateral wall of urinary bladder 385299431 Active 2021 Not Available [facility] 4 07:30:46 Cobalamin deficiency 379813047 Active 2022 Not Available [facility] 4 07:30:46 Asthma 671290022 Active 2016 Not Available [facility] 4 07:30:46 Cerebrovas cular accident 145704752 Active 2016 Not Available [facility] 4 07:30:46 Osteoarthr itis of knee 915104066 Active Not Available [facility] 4 07:30:46 Injury of ribs 995598819 Active 2018 Not Available [facility] 4 07:30:46 Enthesopat hy of hip region 58840107 Active Not Available [facility] 4 07:30:46 Pain in left foot 2403527236192 07 Active 2020 Not Available [facility] 4 07:30:46 Depressive disorder 03138677 Active 2016 Not Available [facility] 4 07:30:46 Hypertensi ve disorder 85900033 Active 2016 Not Available [facility] 4 07:30:46 Osteoarthr itis 760212323 Active Not Available [facility] 4 07:30:46 Peripheral vascular disease 651354695 Active 2017 Not Available [facility] 4 07:30:47 Porokerato sis 664570579 Active 2020 Not Available [facility] 4 07:30:47 Obesity 556856922 Active 2016 Not Available [facility] 4 07:30:47 Tubular adenoma of colon 249056376 Active 2018 Not Available [facility] 4 07:30:47 Anxiety 06467479 Active 2016 Not Available [facility] 4 07:30:47 Chronic colitis 55281664 Active 2018 Not Available [facility] 4 07:30:47 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 204545590 Active 2018 Not Available [facility] 4 07:30:47 Diabetes mellitus 39442805 Active 2016 Not Available [facility] 4 07:30:47 Mass of vocal cord Active 2018 Not Available [facility] 4 07:30:47 Malignant neoplasm of urinary bladder 618117370 Active 2022 Not Available [facility] 4 07:30:47 Chronic back pain 053224865 Active 2022 Not Available [facility] 4 07:30:46 Cigarette smoker 60075685 Active 2022 Not Available [facility] 4 07:30:47 Diverticul itis 561461312 Active 2022 Not Available [facility] 4 07:30:46 Essential hypertensi on 60830335 Active 2022 Not Available [facility] 4 07:30:47 Abdominal pain 96038645 Active 2022 Not Available [facility] 4 07:30:46 Type 2 diabetes mellitus 83619980 Active 2022 Not Available [facility] 4 07:30:47 Bilateral osteoarthr itis of knees 3282921889041 07 Active 2022 Not Available [facility] 4 07:30:46 Pain in right hip joint 1554123359514 02 Active 2022 Not Available [facility] 4 07:30:46 Trochanter ic bursitis of right hip 9193438059255 00 Active 2022 Not Available [facility] 4 07:30:46 Dysuria 64047748 Active 2022 Not Available [facility] 4 07:30:47 Acute exacerbati on of chronic obstructiv e pulmonary disease 979396623 Active 2022 Not Available [facility] 4 07:30:46 Blood in urine 46531143 Active 2022 Not Available [facility] 4 07:30:46 Vaginitis 11202116 Active 2022 Not Available [facility] 4 07:30:46 Allergic rhinitis 91041754 Active 2022 Not Available [facility] 4 07:30:47 Pain of left wrist 3873656775517 02 Active 2022 Not Available [facility] 4 07:30:46 Pain of left elbow joint 7613037378073 9104 Active 2022 Not Available [facility] 4 07:30:46 Pain of left forearm 2349912471198 09 Active 2022 Not Available [facility] 4 07:30:46 Multiple joint pain 29890345 Active 2022 Not Available [facility] 4 07:30:46 Acute sinusitis 61006870 Active 2022 Not Available [facility] 4 07:30:46 Dislocatio n of elbow joint 557866108 Active 2022 Not Available [facility] 4 07:30:47 Closed fracture of coronoid process of ulna 06845954 Active 2022 Not Available [facility] 4 07:30:47 Closed fracture of distal end of radius 18183240 Active 2022 Not Available [facility] 4 07:30:46 Dislocatio n of elbow joint 297991842 Active 2022 Not Available [facility] 4 07:30:47 Closed fracture of distal end of radius 22742015 Active 2022 Not Available [facility] 4 07:30:46 Increased frequency of urination 304912346 Active 2022 Not Available [facility] 4 07:30:46 Acute urinary tract infection 575999944 Active 2022 Not Available [facility] 4 07:30:47 Low back pain 340442191 Active 2022 Not Available [facility] 4 07:30:46 Vitamin D deficiency 95649011 Active 2022 Not Available [facility] 4 07:30:46 Hyperlipid emia 14569030 Active 2022 Not Available [facility] 4 07:30:47 Closed traumatic dislocatio n of elbow joint 5011785 Active 2022 Not Available [facility] 4 07:30:46 Nausea 112474718 Active 2022 Not Available [facility] 4 07:30:47 Heartburn 87916263 Active 2022 Not Available [facility] 4 07:30:46 Tachycardi a 4412890 Active 2022 Not Available [facility] 4 07:30:46 Cough 58745154 Active 2022 Not Available [facility] 4 07:30:47 Hypomagnes emia 286569476 Active 2023 Not Available [facility] 4 07:30:46 Eczema 43405103 Active 2023 Not Available [facility] 4 07:30:47 Pain in throat 180243250 Active 2023 Deisi Andrews MD [address], [place] [address], [place], [address] , [facility] [employer] [facility] 4 13:19:57 Degenerati on of lumbar interverte bral disc 62074251 Active 2023 Deisi Andrews MD [address], [facility] [address], [place], [address] , [facility] [email or web address] [facility] [employer] [facility] 4 14:40:03 Abscess of sigmoid colon 697409524 Active 2023 Deisi Andrews MD [address], [facility] [address], [place], [address] , [facility] 4 14:40:16 Pain of bilateral knee joints 4532484315527 04 Active 2023 NATALYA Kumar, [facility] [employer] [facility] 4 12:11:51 Seasonal allergy 542004544 Active 2023 DARLEEN Carroll [address] [facility], [place] [address], [place], [address] , [facility] [employer] [facility] 4 11:05:30 Problem Notes None recorded. Procedures Surgical History Date Name Laterality Status Provider Name and Address Organization Details Recorded Time 10/01/20 colonoscopy completed Deisi Andrews MD [address], [place] [address], [place], [address], [facility] [employer] [facility] 01/04/2024 14:43:39 09/13/20 23 Transitional_Ca re_Management completed Beti Malloy RN [facility] [employer] [facility] 09/13/2023 11:04:05 01/22/20 23 Transitional_Ca re_Management completed Dorothy Viveros MA [facility] [employer] [facility] 01/21/2023 08:46:49 11/15/19 20 Unlisted px femur/knee completed Not Available [facility] 01/13/2023 13:51:47 Tubal Ligation completed [facility] Available [facility] 01/13/2023 13:51:47 section completed Not Available [facility] 01/13/2023 13:51:47 procedure on carotid body completed Not Available [facility] 01/13/2023 13:51:47 Ear Tube Placement completed Not Available [facility] 01/13/2023 13:51:47 Imaging Results Imaging Date Name Status LastModified by Organiz ation Details LastModified Time 06/05/2024 XR, knee completed [email or web address] [facility] [place] [address], [place], [address], 06/05/2024 11:59:04 06/05/2024 XR, hip + pelvis, unilateral completed [email or web address] [facility] [place] [address], [place], [address], 06/05/2024 12:00:08 06/22/2024 CT, brain, w/o contrast completed [address], [address], 06/22/2024 17:50:10 06/22/2024 XR, chest, 1 view completed [address] [address], [place], [address], 06/22/2024 17:50:25 06/28/2024 CT, abdomen + pelvis, w/ contrast completed [email or web address], [address], 07/12/2024 14:20:43 09/13/2024 XR, hand, 2 view completed [email or web address] [facility] [address], [place], [address], 09/13/2024 16:59:37 Procedure Notes None recorded. Medical Equipment None Reported. Allergies Allergen ID Allergen Name Allergen Category Reaction Reaction Severity Criticality Documentation Date Start Date Code Code System Note Provider Name and Address Organization Details Recorded Time 77889 wasp venoms environme nt angioedem a facial swelling moderate Not available Not available 01/13/2023 97260 RxNorm throa t ingris s Masha Lozada [employer] null, [facility] [employer] [facility] 4 11:21:45 02475 simvastat in medicatio n other Not available Not available 01/13/2023 15392 RxNorm ALL SATIN S!!! can't walk Masha Rayomusa [employer] null, [facility] [employer] [facility] 4 11:21:21 01486 Risperdal medicatio n Not available Not available Not available 01/13/2023 12084 8 RxNorm face draws up Masha Lozada [employer] null, [facility] [employer] [facility] 4 11:20:46 83559 Medicinal product containin g penicilli n and acting as antibacte rial agent (product) medicatio n rash Not available Not available 01/13/2023 56899 05 SNOMED Deisi Andrews MD [address] [facility], [facility] [address], [place], [address] [place] [address] [email or web address] [facility] [employer] [facility] 3 12:22:06 67033 morphine medicatio n other Not available Not available 01/13/2023 7052 RxNorm Not Available [facility] 3 13:57:09 14064 Haldol medicatio n Not available Not available Not available 01/13/2023 89416 9 RxNorm face draws up Masha Lozada [employer] null, [facility] [employer] [facility] 4 11:20:29 52451 Halcion medicatio n other Not available Not available 01/13/2023 39514 3 RxNorm face draws up Masha Lozada, [employer] null, [place] [facility] 4 11:19:53 Medications Name Sig Start Date [...] mg by injectio n route. 2023 active [facility]: 0003-049 20 Not Available Not Available Not [...] administ ered by the provider 01/14 completed [facility]: 0409-427 6-17 Not Available Not Available Not [...] %) injection solution in office 2022 active [facility] 30507-84 4- Not Available Not Available Not Available [...] Updated DateTime 4 157.48 cm 33.3 kg/m2 04763.8 1 g 97.7 [degF] 81 /min 97 % 97 % 148 mm[Hg] 94 mm[Hg] Yocasta Iniguez RN [facility] 4 10:24:45 Date Recorded Body height Body mass index (BMI) Body weight Body temperature Heart rate Oxygen saturation Oxygen saturation in Arterial blood by Pulse oximetry Systolic blood pressure Diastolic blood pressure Provider Name and Address Organization Details Last Updated DateTime 4 157.48 cm 33.3 kg/m2 86938.8 1 g 97.9 [degF] 80 /min 96 % 96 % 120 mm[Hg] 84 mm[Hg] Yocasta Iniguez RN [facility] [employer] [facility] 4 10:59:51 Date Recorded Body height Body mass index (BMI) Body weight Body temperature Heart rate Oxygen saturation Oxygen saturation in Arterial blood by Pulse oximetry Systolic blood pressure Diastolic blood pressure Provider Name and Address Organization Details Last Updated DateTime 4 157.48 cm 33.8 kg/m2 18826.5 9 g 96.4 [degF] 74 /min 95 % 95 % 118 mm[Hg] 80 mm[Hg] Beti Malloy RN [facility] 4 10:30:08 Date Recorded Body height Body mass index (BMI) Body weight Provider Name and Address Organization Details Last Updated DateTime 09/29/2024 160.02 cm 32.6 kg/m2 18631 g 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 None [id number] [id number] Information not available 01/13/2023 What Is Your Level Of Caffeine Consumption? Moderate MIGRATION.28869 77836 Information not available 01/13/2023 In The 14 Days Before Symptom Onset, Have You Had Close Contact With A Laboratory-confir med COVID-19 While That Case Was Ill? No MIGRATION.53522 39752 Information not available 01/13/2023 In The 14 Days Before Symptom Onset, Have You Had Close Contact With A Person Who Is Under Investigation For COVID-19 While That Person Was Ill? No MIGRATION.25385 77890 Information not available 01/13/2023 What Type Of Diet Are You Following? REGULAR MIGRATION.40043 11481 Information not available 01/13/2023 Which Illicit Or Recreational Drugs Have You Used? Marijuana MIGRATION.28475 40492 Information not available 01/13/2023 What Was The Date Of Your Most Recent Tobacco Screening? 12/30/2022 MIGRATION.65869 17450 Information not available 01/13/2023 What Is Your Current Pack Years? 30ormorepacky ears MIGRATION.16902 01483 Information not available 01/13/2023 How Much Tobacco Do You Smoke? 1 PPD MIGRATION.01391 37244 Information not available 01/13/2023 Do You Use Any Illicit Or Recreational Drugs? Yes MIGRATION.84104 42502 Information not available 01/13/2023 Has Tobacco Cessation Counseling Been Provided? No MIGRATION.25108 82807 Information not available 01/13/2023 How Many Years Have You Smoked Tobacco? 45 Information not available 06/05/2024 Have You Recently Traveled Abroad? No MIGRATION.64942 27656 Information not available 01/13/2023 Have You Used IV Drugs? No MIGRATION.66343 34158 Information not available 01/13/2023 Do You Have Any Dietary Restrictions? No MIGRATION.60029 90328 Information not available 01/13/2023 Do You Or Have You Ever Used Any Other Forms Of Tobacco Or Nicotine? No MIGRATION.72251 99883 Information not available 01/13/2023 Sex: Unknown Functional Status Question Answer Note LastModified by Organizat ion Details LastModified Time What is your exercise level? Occasional [email or web address] Information not available 02/15/2023 Mental Status None recorded. Family History Relationship Description Onset Age of this Age Resolved Age Notes LastModified by Organization Details LastModified Time Sister Heart disease [email or web address] Not available 2023 11:25:33 Sister Hypertensive disorder [email or web address] Not available 2023 11:25:41 Sister Family history of malignant neoplasm bladde r cancer [email or web address] Not available 09/29/2024 11:38:38 Sister Family history of stroke Not available 09/29 11:38:38 Father Diabetes mellitus [id number] Not available 01/13/2023 13:51:48 Medical History Condition [...] virus, quadrivalent, preservative 0 completed Not Available [facility] 12/09/2023 07:30:48 COVID-19, mRNA, LNP-S, PF, 30 mcg/0.3 mL dose 1 completed Not Available [facility] 12/09/2023 07:30:48 pneumococcal polysaccharide PPV23 6 completed Not Available [facility] 12/09/2023 07:30:48 Tdap 1 completed Not Available [facility] 12/09/2023 07:30:48 Influenza, split virus, quadrivalent, PF 5 completed Not Available [facility] 12/09/2023 07:30:48 Influenza, split virus, quadrivalent, PF 9 completed Not Available [facility] 12/09/2023 07:30:48 Influenza, split virus, quadrivalent, PF 6 completed Not Available [facility] 12/09/2023 07:30:48 Influenza, MDCK, quadrivalent, PF 2 completed Not Available [facility] 12/09/2023 07:30:48 COVID-19, mRNA, LNP-S, PF, 30 mcg/0.3 mL dose 1 completed Not Available [facility] 12/09/2023 07:30:48 COVID-19, mRNA, LNP-S, PF, 30 mcg/0.3 mL dose 1 completed Not Available [facility] 12/09/2023 07:30:48 PCV10 6 completed Not Available [facility] 12/09/2023 07:30:48 Tdap 9 completed Not Available [facility] 12/09/2023 07:30:48 Influenza, split virus, quadrivalent, PF 7 completed Not Available [facility] 12/09/2023 07:30:48 Influenza, split virus, quadrivalent, PF 8 completed Not Available [facility] 12/09/2023 07:30:48 Past Encounters Encounter ID Performer Location Encounter Start Date Encounter Closed Date Diagnosis/Indication Diagnosis SNOMED-CT Code Diagnosis ICD10 Code [id number] [facility] [place] [address] [place] [address] 04/10/2021 00:00:00 04/10/2021 15:03:00 [id number] [facility] [place] [address] [place] [address] 07/24/2021 00:00:00 07/24/2021 14:52:39 [id number] [facility] [place] [address] [place] [address] 09/11/2021 00:00:00 09/11/2021 19:41:35 [id number] [facility] [place] [address] [place] [address] 09/25/2021 00:00:00 09/25/2021 13:45:31 [id number] [facility] [place] [address] [facility] [address] [place] [address] 11/27/2021 00:00:00 11/27/2021 17:21:55 [id number] [facility] [place] [address] [facility] [address] [place] [address] 01/09/2022 00:00:00 01/09/2022 13:49:17 [id number] [facility] [address] [address] 01/14/2022 00:00:00 01/14/2022 12:15:16 [id number] [facility] [place] [address] [facility] [address] [place] [address] 01/16/2022 00:00:00 01/16/2022 13:45:45 [id number] [facility] [address] [address] 01/28/2022 00:00:00 01/28/2022 10:37:52 [id number] [facility] [place] [address] [facility] [address] [place] [address] 02/04/2022 00:00:00 02/04/2022 10:09:13 [id number] [facility] [address] [address] 02/11/2022 00:00:00 02/11/2022 11:28:41 [id number] [facility] [place] [address] [place] [address] 03/05/2022 00:00:00 03/05/2022 20:54:57 [id number] [facility] [place] [address] [place] [address], [address] [place] [address] 03/11/2022 00:00:00 03/11/2022 11:57:34 [id number] [facility] [place] [address] [place] [address] 03/12/2022 00:00:00 03/12/2022 20:05:18 [id number] [facility] [place] [address] [facility] [address] [place] [address] 03/30/2022 00:00:00 03/30/2022 18:57:59 [id number] [facility] [place] [address] [place] [address] 04/10/2022 00:00:00 04/10/2022 15:42:18 [id number] [facility] [place] [address] [place] [address] 04/14/2022 00:00:00 04/14/2022 17:08:42 [id number] [facility] [place] [address] [address] [place] [address] 05/12/2022 00:00:00 05/12/2022 11:08:10 [id number] [facility] [place] [address] [place] [address] 06/08/2022 00:00:00 06/08/2022 13:25:34 [id number] [facility] [place] [address] [place] [address] 07/08/2022 00:00:00 07/08/2022 11:21:41 [id number] [facility] [place] [address] [place] [address] 08/06/2022 00:00:00 08/06/2022 10:16:45 [id number] [facility] [place] [address] [place] [address] 08/10/2022 00:00:00 08/10/2022 18:36:42 [id number] [facility] [place] [address] [place] [address] 11/02/2022 00:00:00 11/02/2022 17:50:24 [id number] [facility] [place] [address] [place] [address] 12/30/2022 00:00:00 01/10/2023 19:17:51 [id number] BRIANA Nair [facility] [place] [address] [place] [address] 01/21/2023 08:41:06 01/21/2023 10:28:13 Transition of care 6445008299 105 Z75.8 Malignant neoplasm of urinary bladder 261883930 C67.9 Chronic back pain 007703 002 M54.9 Asthma 888496318 J45.90 9 Cigarette smoker 5946378 7 F17.210 Diverticulitis 806415392 K57.92 [id number] Deisi Andrews MD [facility] [place] [address] [place] [address] 02/15/2023 14:10:36 02/15/2023 14:51:25 Type 2 diabetes mellitus 10572194 E11.9 Essential hypertension 73341329 I10 Abdominal pain 73768033 R10.9 Malignant neoplasm of urinary bladder 782201296 C67.9 [id number] Deisi Andrews MD [facility] [place] [address] [place] [address] 02/18/2023 12:54:13 02/18/2023 14:09:00 [id number] JOSE Carrillo [facility] [place] [address] [facility] [address] [place] [address] 02/18/2023 14:41:23 02/18/2023 15:00:04 Bilateral osteoarthritis of knees 6634384615 02054 M17.0 Pain in ri ght hip joint 4265950249 01187 M25.551 Trochanter ic bursitis of right hip 4845972659 00704 M70.61 [id number] Deisi Andrews MD [facility] Primary Care [facility] [address] [facility] [address] [place] [address] 03/01/2023 11:56:25 03/01/2023 12:42:08 Blood in urine 30268033 R31.9 Vaginitis 87209412 N76.0 Type 2 patrick betes mellitus 78498972 E11.9 Essential hypertension 85407823 I10 Malignant neoplasm of urinary bladder 228564324 C67.9 [id number] Deisi Andrews MD [facility] Primary Care [facility] [address] [facility] [address] [place] [address] 03/22/2023 14:54:50 03/22/2023 15:06:49 [id number] Deisi Andrews MD [facility] Primary Care [facility] [address] [facility] [address] [place] [address] 04/05/2023 11:47:24 04/05/2023 12:14:38 Malignant neoplasm of urinary bladder 696392972 C67.9 Type 2 patrick betes mellitus 95495570 E11.9 Essential hypertension 72215148 I10 [id number] Carlin Hamm MD [facility] [place] [address] [place] [address] 04/21/2023 10:18:04 04/21/2023 11:25:23 Pain of left wrist 2689501329 25151 M25.532 Pain of le ft elbow joint 2172393009 7934637 M25.522 Pain of left forearm 150 4058528 86820 M79.632 Dislocatio n of elbow joint 064047680 S53.105A Closed fra cture of coronoid process of ulna 17015611 S52.042A Closed fra cture of distal end of radius 37264834 S52.502A [id number] Deisi Andrews MD [facility] [place] [address] [place] [address] 04/22/2023 17:20:32 04/22/2023 17:22:25 [id number] JOSE Barajas [facility] [place] [address] [place] [address] 04/28/2023 09:03:16 04/28/2023 09:35:55 Closed fracture of distal end of radius 92260482 S52.502A Malignant neoplasm of urinary bladder 342201084 C67.9 [id number] Carlin Hamm MD [facility] [place] [address] [place] [address] 04/30/2023 11:32:11 04/30/2023 12:21:04 Pain of left forearm 2922932361 33643 M79.632 Dislocatio n of elbow joint 819286446 S53.105A Closed fra cture of distal end of radius 26507937 S52.502A [id number] Carlin Hamm MD [address] [address] 05/03/2023 11:29:29 05/03/2023 12:04:16 Pain of left wrist 7040807328 06084 M25.532 Closed fra cture of distal end of radius 23794197 S52.502A Dislocatio n of elbow joint 698006109 S53.105A [id number] Carrie Villatoro NP [facility] [place] [address] [place] [address] 05/12/2023 11:30:59 05/12/2023 12:10:07 Closed fracture of distal end of radius 48825298 S52.502D Pain of left wrist 58670 70514 03651 M25.532 Dislocatio n of elbow joint 355671030 S53.105D [id number] Carlin Hamm MD [facility] [place] [address] [place] [address] 05/26/2023 10:41:34 05/26/2023 11:05:06 Pain of left wrist 5648438389 37540 M25.532 [id number] Deisi Andrews MD [facility] [place] [address] [facility] [address] [place] [address] 05/26/2023 11:56:35 06/14/2023 17:26:36 [id number] JOSE Carrillo [facility] [place] [address] [place] [address] 06/01/2023 14:35:10 06/01/2023 16:07:53 Bilateral osteoarthritis of knees 5105769925 13410 M17.0 Pain in ri ght hip joint 1728204226 15880 M25.551 Trochanter ic bursitis of right hip 2578742122 19395 M70.61 [id number] Carlin Hamm MD [facility] [place] [address] [place] [address] 06/15/2023 10:55:39 06/15/2023 11:35:22 Pain of left elbow joint 4522637936 3024447 M25.522 Pain of left wrist 97775 76543 03664 M25.532 [id number] Deisi Andrews MD [facility] Primary [facility] [place] [address] [place] [address] [address] [place] [address] 06/15/2023 14:04:21 06/15/2023 14:19:35 Acute sinusitis 99884447 J01.90 [id number] Deisi Andrews MD [facility] [place] [address] [place] [address] [address] [place] [address] 06/22/2023 13:59:01 06/22/2023 14:24:58 Acute sinusitis 65432304 J01.90 [id number] Deisi Andrews MD [facility] [place] [address] [facility] [address] [place] [address] 06/29/2023 12:10:23 06/29/2023 12:29:02 [id number] Deisi Andrews MD [facility] [place] [address] [place] [address] 07/05/2023 11:23:03 07/05/2023 11:55:41 Acute sinusitis 19898839 J01.90 Dysuria 69150485 R30.0 Cobalamin deficiency 190 196395 E53.8 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 781967757 E11.43 Vitamin D deficiency 347 51678 E55.9 Hyperlipidemia 47231830 E78.5 Pain of left wrist 63261 58533 50871 M25.532 Low back pain 206293806 M54.50 [id number] Carrie Villatoro NP [facility] [place] [address] [place] [address] 07/20/2023 10:19:42 07/20/2023 10:53:14 Pain of left wrist 3415551355 38902 M25.532 Closed tra umatic dislocation of elbow joint 6800243 S53.105D Closed fra cture of distal end of radius 52624921 S52.502D Pain of le ft elbow joint 1414994026 3317574 M25.564 [id number] BRIANA Nair [facility] [place] [address] [place] [address] 08/13/2023 16:54:27 08/13/2023 18:15:23 [id number] Deisi Andrews MD [facility] [place] [address] [place] [address] 08/18/2023 11:33:47 08/18/2023 11:57:27 [id number] Deisi nAdrews MD [facility] [place] [address] [place] [address] 09/01/2023 11:22:27 09/01/2023 12:22:40 [id number] Deisi Andrews MD [facility] [place] [address] [place] [address] 09/13/2023 10:56:46 09/13/2023 11:30:26 Transition of care 1447833349 105 Z75.8 Pain of left wrist 18386 16927 01511 M25.532 Tachycardia 1413114 R00. 0 Renewal of prescription 502117176 Z76.0 [id number] JOSE Carrillo [facility] [place] [address] [place] [address] 09/17/2023 10:20:59 09/17/2023 11:09:40 Bilateral osteoarthritis of knees 7279146135 27007 M17.0 [id number] Deisi Andrews MD [facility] [place] [address] [place] [address] 09/27/2023 15:59:59 01/12/2024 11:39:11 [id number] Deisi Andrews MD [facility] [place] [address] [place] [address] 10/12/2023 10:36:21 10/12/2023 11:18:21 [id number] DARLEEN Carroll [facility] [place] [address] [place] [address] 10/15/2023 11:01:02 10/15/2023 11:17:43 [id number] Deisi Andrews MD [facility] [place] [address] [place] [address] 11/16/2023 10:08:05 11/16/2023 10:46:40 Cobalamin deficiency 032382680 E53.8 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 731133993 E11.43 Vitamin D deficiency 347 71288 E55.9 Hyperlipidemia 84741180 E78.5 Pain of left wrist 15609 15412 31721 M25.532 Low back pain 798321016 M54.50 Essential hypertension 31418925 I10 Hypomagnesemia 927520508 E83.42 [id number] JOSE Carrillo [facility] [place] [address] [place] [address] 12/10/2023 11:14:07 12/10/2023 11:57:29 Bilateral osteoarthritis of knees 9841674188 98326 M17.0 [id number] Deisi Andrews MD [facility] Primary Care [facility] [address] [facility] [address] [place] [address] 12/28/2023 16:46:59 12/28/2023 17:32:54 [id number] Deisi Andrews MD [facility] Primary Care [facility] [address] [facility] [address] [place] [address] 01/04/2024 14:15:06 01/04/2024 14:52:20 Degeneration of lumbar intervertebral disc 46989149 M51.36 Abscess of sigmoid colon 202643619 K63.0 Eczema 92823848 L30.9 [id number] Deisi Andrews MD [facility] [address] [facility] [address] [place] [address] 02/17/2024 10:43:38 02/17/2024 10:53:58 [id number] JOSE Carrillo [facility] [place] [address] [facility] [address] [place] [address] 02/25/2024 12:06:16 02/25/2024 12:26:39 Bilateral osteoarthritis of knees 9161562619 06835 M17.0 Pain of bi lateral knee joints 3501818723 54511 M25.561 M25.122 [id number] Deisi Andrews MD [facility] Primary Care [facility] [address] [facility] 140 [place] [address] 03/07/2024 14:12:41 03/07/2024 15:17:27 Acute sinusitis 28395516 J01.90 Multiple joint pain 3567 8005 M25.50 Renewal of prescription 384140470 Z76.0 Cobalamin deficiency 190 399702 E53.8 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 580207933 E11.43 Vitamin D deficiency 347 32010 E55.9 Hyperlipidemia 83314090 E78.5 Low back pain 082051911 M54.50 Essential hypertension 01439417 I10 Hypomagnesemia 644021628 E83.42 [id number] Carlin Hamm MD [facility] [place] [address] [place] [address] 03/22/2024 13:42:07 03/22/2024 14:37:26 Pain of left elbow joint 3486274298 6083533 M25.522 Pain of left wrist 38545 13118 31092 M25.187 [id number] Jeanna Bryant [facility] [place] [address] [place] [address] 03/22/2024 11:32:42 04/11/2024 15:45:23 [id number] BEHZAD CarrollP-C S_[facility] [place] [address] [place] [address] 04/19/2024 14:13:49 04/19/2024 15:24:57 [id number] BEHZAD CarrollP-C S_[facility] [place] [address] [place] [address] 04/20/2024 12:26:29 04/20/2024 13:56:38 [id number] Jose Montoya FINANCIAL ACCOUNTING ANALYST-C S_[facility] Primary [facility] [place] [address] [place] [address] 05/09/2024 12:23:41 05/09/2024 15:55:31 [id number] JOSE Carrillo S_[facility] [place] [address] [place] [address] 06/05/2024 10:59:22 06/05/2024 16:27:04 Bilateral osteoarthritis of knees 3960219146 43304 M17.0 Pain in ri ght hip joint 7814184446 51250 M25.551 Trochanter ic bursitis of right hip 3915183953 52442 M70.61 Pain of bi lateral knee joints 1744414614 68134 M25.561 M25.021 [id number] Jose Montoya FINANCIAL ACCOUNTING ANALYST-C [facility] [place] [address] [place] [address] 06/27/2024 10:18:32 06/27/2024 10:49:45 Dysuria 77793772 R30.0 Blood in urine 70800468 R31.9 Chronic back pain 351001 002 M54.9 [id number] DARLEEN Carroll [facility] [place] [address] [facility] [address] [place] [address] 08/08/2024 10:53:06 08/08/2024 11:36:59 Malignant neoplasm of urinary bladder 366770467 C67.9 Seasonal allergy 8846323 04 J30.2 Low back pain 200989556 M54.50 [id number] DARLEEN Andrea [facility] Primary Care [facility] [address] [facility] [address] [place] [address] 08/24/2024 10:23:41 08/24/2024 11:14:49 Adult health examination 855967406 Z00.00 Cerebrovas cular accident 727233272 I63.9 Chronic ob structive pulmonary disease 65946513 J44.9 Cigarette smoker 2459374 7 F17.210 Depressive disorder 3548 9007 F32.A Diabetes mellitus 680778 09 E11.9 Eczema 11379988 L30.9 Essential hypertension 66327166 I10 Hyperlipidemia 30651210 E78.5 Vitamin D deficiency 347 96252 E55.9 Body mass index 30+ - obesity 604723419 Z68.33 Screening mammography 24 453997 Z12.31 Spasm 39852235 R25.2 [id number] DARLEEN Andrea [facility] Primary Care [facility] [address] [facility] [address] [place] [address] 09/13/2024 14:07:11 09/13/2024 14:40:00 [id number] JOSE Carrillo [facility] [place] [address] [place] [address] 09/29/2024 11:36:27 09/29/2024 12:03:37 Bilateral osteoarthritis of knees 2552202821 64272 M17.0 Pain of bi lateral knee joints 3203200016 33203 M25.561 M25.562 Health Concerns Section Related Observation LastModified by Organization Detai ls LastModified Time None Recorded Concern Status LastModified by Organization Details LastModified Time None Recorded Advance Directives Directive None Recorded Payers Encounter Date Sequence Insurance Name Policy Number Policy Larsen Covered Member ID Larsen Member ID Guarantor Name 06/27/2024 1 [facility] ON OR AFTER 05/15/21 (MEDICAID REPLACEMENT - HMO) Rody Moon Gelso [id number] Rody Moon Gelso 08/08/2024 1 [facility] ON OR AFTER 05/15/21 (MEDICAID REPLACEMENT - HMO) Rody Moon Gelso [id number] Rody J Gelso 08/24/2024 1 [facility] ON OR AFTER 05/15/21 (MEDICAID REPLACEMENT - HMO) Rody Moon Gelso [id number] Rody J Gelso 09/13/2024 1 [facility] ON OR AFTER 05/15/21 (MEDICAID REPLACEMENT - HMO) Rody Moon Gelso [id number] Rody J Gelso 09/29/2024 1 [facility] ON OR AFTER 05/15/21 (MEDICAID REPLACEMENT - HMO) Rody Moon Gelso [id number] Rody Sarai Gelso Notes Date Note Type Note Provider Name and Address Organization Details Recorded Time 06/27/2024 text/html Pt is here for f/u DARLEEN Weiss [address], [address], [place] 06/27/2024 10:42:23 08/08/2024 text/html pt is here for f/u DARLEEN Weiss [address] [address], [place], [address], [place] 08/29/2024 14:06:42 08/24/2024 text/html Patient is a 63 year old female that presents to the office for annual wellness. Patient reports she is doing well on current medications. Patient is receiving BCG treatments for bladder cancer--has 3 treatments remaining. Patient denies any other medical concerns including chest pain and shortness of breath, nausea vomiting and diarrhea. labs-orderedmammogra m-orderedcolonoscopy - (09/2023)WWE- sees LFFKqm-euujlYzorb-FV DNwci-SFFDimhcond-KN DPneumo-UTD DARLEEN Andrea [address], [facility] [address], [place], [address], [facility] [employer] 08/24/2024 13:29:47 09/29/2024 text/html the patient retu rns with bilateral knee pain she has severe primary osteoarthritis of both knees which is ytsc-rs-oymg. She has severe changes in the tibial [...] cortisone injections both knees. JOSE Carrillo [address], [facility] [address], [place], [address], [place] 09/29/2024 12:07:57 OBGyn Episode No OBEpisode recorded.
== END 2024-11-10 16:50 | disposition home or self-care (01) | DRG 720 ==
LOC: ANHED 11-05 01:21 → ANHIMU 11-05 07:10 → ANHICU 11-05 08:31 → ANH2MED 11-06 16:03
PROVIDERS: General Practice; Internal Medicine; Internal Medicine Nephrology; Nurse Practitioner Adult Health; Admitting Provider Internal Medicine; Emergency Provider Physician Assistant; PCP Family Medicine; Visit Provider Nurse Practitioner Acute Care
DX: A41.51 Sepsis due to Escherichia coli [E. coli] (principal); N12 Tubulo-interstitial nephritis, not specified as acute or chronic; R65.20 Severe sepsis without septic shock; N17.9 Acute kidney failure, unspecified; I48.91 Unspecified atrial fibrillation; U07.1 COVID-19; E86.0 Dehydration; E87.1 Hypo-osmolality and hyponatremia; B96.20 Unspecified Escherichia coli [E. coli] as the cause of diseases classified elsewhere; J44.9 Chronic obstructive pulmonary disease, unspecified; F17.210 Nicotine dependence, cigarettes, uncomplicated; E11.9 Type 2 diabetes mellitus without complications; Z85.51 Personal history of malignant neoplasm of bladder; Z79.84 Long term (current) use of oral hypoglycemic drugs; Z79.01 Long term (current) use of anticoagulants
CPT/HCPCS: 36415; 70450; 71045; 72125; 72128; 72131; 74019; 74176; 76775; 80048; 80053; 81001; 82533; 82550; 82570; 82948; 83036; 83605; 83735; 83930; 83935; 84100; 84156; 84295; 84300; 84443; 84484; 84550; 85025; 85055; 86140; 87040; 87086; 87186; 87637; 93005; 93306; 94640; 96360; 96361; 96365; 96366; 96367; 96368; 96372; 96375; 96376; 97161; 97165; 99285; A9270; C1751; G0378; G0379; J0500; J0696; J1100; J1815; J2405; J3370; J3475; J3480; J7030; J7040; J8540; P9047

== ENCOUNTER 2024-11-14 11:13 | Observation (INO) | payer OTHER, SELFPAY ==
[2024-11-14] VITALS (15 sets, daily range): BP systolic 81–128; BP diastolic 42–90; PULSE 57–119; RESP 16–22; TEMP 36.3–36.8; O2SAT 96–100; BMI 29.0
--- NOTE | ~2024-11-14 | CT_ITS ---
EXAMINATION: CTA chest PE protocol DATE: 11/14/2024 14:16 INDICATION: SOA TECHNIQUE: Computed tomography angiography (CTA) of the chest was performed with 100 mL Omnipaque-350 intravenous contrast timed to evaluate the pulmonary arteries. Coronal maximum intensity projection 3D-reconstructions were created by the technologist. The dose-length product (DLP) was 446.76 mGy-cm. Automated exposure control and iterative reconstruction technique were employed. COMPARISON: X-ray chest, same date. FINDINGS: Lung parenchyma and airways: Patent airways. Isolated islands of groundglass opacities in the upper l obes. Wedge-shaped ground lass opacity in the medial right lower lobe. Scattered subtle tree-in-bud a nd centrilobular nodular opacities. Lingular scar/atelectasis. Pleura: Unremarkable. Thoracic inlet, axillae and chest wall: Unremarkable. Thoracic aorta: No significant dilation. No dissection. Mediastinum: Normal. Heart and pericardium: Mild cardiomegaly. Coronary artery calcifications: Absent. Upper abdomen: No significant finding. Bones: No acute osseous finding. Pulmonary arteries: Study quality: Adequate. No pulmonary emboli detected. IMPRESSION: No CT evidence of acute pulmonary embolus. Pulmonary opacities suggestive of atypical/viral infection Reviewed, dictated and finalized at location [facility] [employer] [facility]
--- NOTE | ~2024-11-14 | XR_ITS ---
Portable chest x-ray Comparison: 11/14/2024 Clinical History: Shortness of breath Findings: Lungs are clear, without focal consolidation or pleural effusion. Cardiomediastinal silho uette is stable. Bones and soft tissues are unremarkable. Impression: Clear lungs. Reviewed, dictated and finalized at location . LY ASSISTANT Impression: Clear lungs.
--- NOTE | ~2024-11-14 | XR_ITS ---
Portable chest x-ray Comparison: 11/05/2024 Clinical History: Chest pain Findings: Lungs are clear, without focal consolidation or pleural effusion. Cardiomediastinal silho uette is stable. Bones and soft tissues are unremarkable. Impression: No acute abnormality. Reviewed, dictated and finalized at location . HEAD ROLLER at Impression: No acute abnormality.
--- NOTE | 2024-11-14 11:29 | ECG_ITS ---
Test Date: 2024-11-14 11:29:39 Measurements Intervals [place] Rate: 94 P: 0 TX: 0 QRS: 23 QRSD: 91 T: 0 QT: 382 QTc: 480 Interpretive Statements ATRIAL FIBRI[address]ATION ST DEVIATION AND MODERATE T-WAVE ABNORMALITY, CONSIDER INFERIOR ISCHEMIA [-0.1+ mV T-WAVE IN II/aVF] Compared to ECG 11/04/2024 20:26:14 No significant changes Electronically Signed On 11-14-2024 22:44:34 NEWS AGENT by Rhonda Barriga M.D.
[2024-11-14] MEDS: ASPIRIN 81 MG CHEWABLE TABLET 324 MG PO (11:57)
[2024-11-14 12:05] LABS: Basophils Absolute Auto 0.1 K/mm3 (0.0-0.1); Basophils Percent Auto 0.4 % (0.2-1.2); Eosinophils Absolute Auto 0.1 K/mm3 (0-0.3); Eosinophils Percent Auto 0.7 % (0-4.4); Hematocrit 37.7 % (37.0-47.0); Immature Granulocyte Absolute 0.13 K/mm3 (0.00-0.031); Immature Granulocyte Percent A 0.8 % (0-0.5); Lymphocytes Absolute Auto 2.19 K/mm3 (0.9-3.2); Lymphocytes Percent Auto 13.8 % (18.3-44.2); Mean Corpuscular HGB Conc 34.5 g/dl (32-36); Mean Corpuscular Hemoglobin 28.8 pg (26-34); Mean Corpuscular Volume 83.4 fl (80-100); Mean Platelet Volume 11.3 fl (7.4-10.4); Monocytes Absolute Auto 1.1 K/mm3 (0.1-0.6); Neutrophils Absolute Auto 12.3 K/mm3 (1.3-6.7); Neutrophils Percent Auto 77.3 % (45.5-73.1); Platelet Count Result 336 k/mm3 (150-375); Red Blood Count 4.52 M/mm3 (4.2-5.4); Red Cell Distribution Width 13.8 % (11.5-14.5); White Blood Count 15.9 K/mm3 (4.5-10.0)
[2024-11-14] MEDS: SODIUM CHLORIDE 0.9% IV 500 ML IV CONT (12:14)
[2024-11-14 12:16] LABS: Alanine Aminotransferase 15 U/L (6-35); Albumin Level 3.4 g/dL (3.5-5.1); Alkaline Phosphatase 73 U/L (38-126); Anion Gap 1 mmol/L (4-12); Aspartate Amino Transferase 22 U/L (14-36); Bilirubin,Total 1.1 mg/dL (0.2-1.3); Blood Urea Nitrogen 22 mg/dL (7-17); Calcium 8.2 mg/dL (8.4-10.2); Carbon Dioxide 23 mmol/L (22-30); Chloride 104 mmol/L (98-107); Estimated CRCL calculation 55 ml/min; Estimated Glomerular Filt Rate > 60; Glucose 167 mg/dL (65-110); Lipase 168 U/L (23-300); Potassium 3.7 mmol/L (3.4-5.0); Sodium 128 mmol/L (137-145)
[2024-11-14 12:19] LABS: Lactic Acid Reflex 2.2 mmol/L (0.7-2.0)
[2024-11-14 12:19] LABS: Alveolar/Arterial O2 Gradient 48.3 mmHg; Base Excess ABG -2.3 mEq/l (+/-2.0); Fractional Inspired Oxygen 21 %; HCO3 ABG 18.8 mEq/l (22.0-26.0); Oxygen Saturation ABG 96.4 % (95.0-100.0); PO2 ABG 73.3 mmHg (80.0-100.0); PO2 FiO2 Ratio Arterial Blood 3.49 %; Total Hemoglobin 12.7 g/dL (12.0-18.0)
[2024-11-14 12:21] LABS: Modified Allen's Test Pass; PCO2 ABG 23.5 mmHg (35.0-45.0); Site Drawn RIGHT RADIAL; pH ABG 7.522 (7.350-7.450)
[2024-11-14 12:22] LABS: Device ROOM AIR
[2024-11-14 12:26] LABS: Troponin I 0.025 ng/mL (0.000-0.034)
[2024-11-14 12:41] LABS: Influenza A QL RT-PCR Negative (Negative); Influenza B QL RT-PCR Negative (Negative); RSV RNA, RT-PCR Negative (Negative); SARS-CoV-2 RNA PCR Positive (Negative)
[2024-11-14 12:42] LABS: INR 1.7; Prothrombin Time 20.1 Seconds (11.1-14.7)
[2024-11-14 12:43] LABS: Partial Thromboplastin Time 31.6 Seconds (22.3-36.8)
[2024-11-14 12:50] LABS: NT Pro B Type Natriuretic Pept 7120 pg/mL (19.9-100)
--- NOTE | 2024-11-14 14:12 | ED.CHESTPAIN ---
HPI - Chest Pain General Chief Complaint: Chest Pain Stated Complaint: SOB Time Seen by Provider: 11/14/24 12:50 History of Present Illness HPI narrative: Patient is a 63-year-old female who presents ER with chest pain and shortness of breath. Recently hospitalized for COVID and had sepsis. She was discharged couple days ago. Just pain as tightness. Associated with cough and dyspnea. cough is nonproductive.Unsure about orthopnea. Denies history of heart failure. She is on Eliquis for clot prevention. No diarrhea or vomiting. No alleviating factors that she has found. Related Data Home Medications ?Medication ?Instructions ?Recorded ?Confirmed ?Last Taken ?Type losartan 100 mg tablet 100 mg PO DAILY 09/12/20 11/14/24 10/24/23 09:00 History clopidogrel 75 mg tablet 75 mg PO DAILY 05/20/21 11/14/24 10/25/23 09:00 History trazodone 50 mg tablet 50 mg PO HS PRN Insomnia 08/07/23 11/14/24 10/24/23 21:00 History lorazepam 0.5 mg tablet 0.5 mg PO TID 08/26/23 11/14/24 10/23/23 21:00 History metformin 500 mg tablet 500 mg PO BID 08/26/23 11/14/24 10/23/23 17:00 History ezetimibe 10 mg tablet 10 mg PO DAILY 09/23/23 11/14/24 10/24/23 09:00 History budesonide-formoterol HFA 160 See Rx Instructions .Route .COMPLEX 10/25/23 11/14/24 Unknown History mcg-4.5 mcg/actuation aerosol inhaler (Symbicort) cyclobenzaprine 10 mg tablet 10 mg PO PRN muscle spasm 10/25/23 11/14/24 Unknown History ergocalciferol (vitamin D2) 1,250 50,000 unit PO WEEKLY 10/25/23 11/14/24 10/18/23 History mcg (50,000 unit) capsule Zyrtec 1 tab-cap PO DAILY 03/02/24 11/14/24 Unknown History cromolyn 4 % eye drops 1 drp EACH EYE DAILY 03/02/24 11/14/24 Unknown History evolocumab 140 mg/mL subcutaneous 140 mg subcut MONTHLY 03/02/24 11/14/24 Unknown History pen injector (Latha Lau) fluticasone propionate 50 1 spray intranasal DAILY 03/02/24 11/14/24 Unknown History mcg/actuation nasal spray,suspension albuterol sulfate 2.5 mg/3 mL 2.5 mg inhalation Q6H PRN 11/05/24 11/14/24 Unknown History (0.083 %) solution for nebulization shortness of breath or wheezing albuterol sulfate 90 mcg/actuation 2 puff inhalation Q6H PRN 11/05/24 11/14/24 Unknown History aerosol inhaler shortness of breath or wheezing fenofibrate 120 mg tablet 120 mg PO DAILY 11/05/24 11/14/24 11/04/24 History fluoxetine 40 mg capsule 40 mg PO QPM 11/05/24 11/14/24 11/04/24 History montelukast 10 mg tablet 10 mg PO QPM 11/05/24 11/14/24 11/04/24 History sotalol 120 mg tablet 120 mg PO Q12H 11/05/24 11/14/24 11/04/24 History Allergies Allergy/AdvReac Type Severity Reaction Status Date / Time haloperidol Allergy Unknown Other Verified 11/07/24 14:05 risperidone Allergy Unknown MY MOUTH Verified 11/07/24 14:05 TIGHTENS UP -TD simvastatin Allergy Unknown Other Verified 11/07/24 14:05 Rpalnqm-OXS-SdV Reductase Allergy Other Verified 11/07/24 14:05 Inhibitor codeine AdvReac Unknown NAUSEA AND Verified 11/07/24 14:05 VOMITING triazolam AdvReac Unknown N/V Verified 11/07/24 14:05 Wasp Allergy Unknown WASP Uncoded 11/07/24 14:05 STING- CLOSES MY THROAT Review of Systems Review of Systems: All systems reviewed & are unremarkable except as noted in HPI and below Constitutional: Constitutional: Reports no additional constitutional complaints ENT: Reports system reviewed and no additional complaints, except as documented Cardiovascular: Cardiovascular: Reports no additional cardiovascular complaints Respiratory: Respiratory: Reports no additional respiratory complaints Gastrointestinal: Gastrointestinal: Reports no additional gastrointestinal complaints [facility] Past Medical History Medical History History of gastroesophageal reflux (GERD) History of diabetes mellitus History of COPD History of bladder cancer Surgical History Surgical History (Updated 11/07/24 @ 14:05 by Bairon Sharpe) History of transurethral resection of bladder tumor (TURBT) History of vascular surgery Bilateral iliac stent. History of section History of cardiac catheterization History of left-sided carotid endarterectomy History of carpal tunnel release History of colonoscopy History of esophagogastroduodenoscopy (EGD) History of cholecystectomy Family History Family History (Updated 11/14/24 @ 22:18 by Tony Jimenez RN) Sibling Diabetes mellitus Family history of malignant neoplasm Heart disease Social History Social History (System 11/07/24 @ 14:05 by Bairon Sharpe) Smoking packs per day: 2 Smoking cigarettes per day: 40.0 Years smoked: 40 Smoking pack-years: 80.00 Smoking status: Current some day smoker Second hand tobacco smoke exposure: No Additional smoking assessment comments: pt. was smoking 3 packs a day and has cut down to half a pack daily Alcohol intake: never Substance use: never Last use: 09/22/23 Do You Feel Safe in your Home?: Yes Lack of Transportation: No Lack of Food: Never True Current Housing: I Have Housing Concerned About Future Housing: No Difficulty Paying Gas/Electric Bills: No Difficulty Paying for Meds: No Currently Unemployed: No Education: High School Diploma/GED Difficulty w/ Childcare or Family Care: No Living arrangements: alone Spiritual care concerns: No Exam Narrative: GENERAL: Chronically ill-appearing, well-nourished, and in no acute distress. HEAD: Normocephalic, atraumatic. ENT: Mucous membranes moist. NECK: Supple. CHEST: Clear to auscultation. No respiratory distress. HEART: Regular rate and rhythm. Normal peripheral pulses. ABDOMEN: Soft, nontender, nondistended. EXTREMITIES: Normal range of motion. No edema. SKIN: Warm, dry, no rash. NEURO: Alert and oriented x3. PSYCH: Normal mood and affect. Course Course Emergency Course: Elevated BNP. No chest pain. Admit to hospitalist service for chest pain rule out. No PE on CTA. May have new CHF. Still COVID positive which is anticipated. Vital Signs Vital signs: Vital Signs Temperature 97.4 F L 11/14/24 11:20 Pulse Rate 119 H 11/14/24 11:20 Respiratory Rate 22 H 11/14/24 11:20 Blood Pressure 128/42 L 11/14/24 11:20 Pulse Oximetry 99 11/14/24 11:20 Oxygen Delivery Room Air 11/14/24 11:20 Temperature 98.1 F 11/14/24 21:32 Pulse Rate 102 H 11/14/24 21:32 Respiratory Rate 20 11/14/24 21:32 Blood Pressure 104/64 11/14/24 21:32 Pulse Oximetry 99 11/14/24 21:32 Oxygen Delivery Room Air 11/14/24 12:26 MDM - Chest Pain Lab Data 11/14/24 11:57 11/14/24 11:57 Labs: Lab Results 11/14/24 11/14/24 11/14/24 Range/Units 11:57 12:02 14:46 WBC 15.9 H (4.5-10.0) K/mm3 RBC 4.52 (4.2-5.4) M/mm3 Hgb 13.0 (12.0-15.0) g/dL Hct 37.7 (37.0-47.0) % MCV 83.4 (80-100) fl MCH 28.8 (26-34) pg MCHC 34.5 (32-36) g/dl RDW 13.8 (11.5-14.5) % Plt Count 336 D (150-375) k/mm3 MPV 11.3 H (7.4-10.4) fl Immature Gran % (Auto) 0.8 H (0-0.5) % Neut % (Auto) 77.3 H (45.5-73.1) % Lymph % (Auto) 13.8 L (18.3-44.2) % [place] % (Auto) 7.0 (2.6-8.5) % Eos % (Auto) 0.7 (0-4.4) % Baso % (Auto) 0.4 (0.2-1.2) % Lymph # (Auto) 2.19 (0.9-3.2) K/mm3 [place] # (Auto) 1.1 H (0.1-0.6) K/mm3 Eos # (Auto) 0.1 (0-0.3) K/mm3 Baso # (Auto) 0.1 (0.0-0.1) K/mm3 Abs Immat Gran (auto) 0.13 H (0.00-0.031) K/mm3 Absolute Neuts (auto) 12.3 H (1.3-6.7) K/mm3 Absolute Nucleated RBC 0.000 (0.0-0.012) K/mm3 Nucleated RBC % 0.0 (0.0-0.2) % PT 20.1 H (11.1-14.7) Seconds INR 1.7 APTT 31.6 (22.3-36.8) Seconds Sodium 128 L (137-145) mmol/L Potassium 3.7 (3.4-5.0) mmol/L Chloride 104 (98-107) mmol/L Carbon Dioxide 23 (22-30) mmol/L Anion Gap 1 L (4-12) mmol/L BUN 22 H D (7-17) mg/dL Creatinine 0.90 (0.7-1.0) mg/dL Estim Creat Clear Calc 55 ml/min Estimated GFR > 60 (59 - ) Glucose 167 H (65-110) mg/dL Lactic Acid 2.2 H (0.7-2.0) mmol/L Calcium 8.2 L (8.4-10.2) mg/dL Total Bilirubin 1.1 (0.2-1.3) mg/dL AST 22 (14-36) U/L ALT 15 (6-35) U/L Alkaline Phosphatase 73 (38-126) U/L Troponin I 0.025 0.026 (0.000-0.034) ng/mL NT-Pro-B Natriuret Pep 7120 H (19.9-100) pg/mL Total Protein 7.0 (6.3-8.2) g/dL Albumin 3.4 L (3.5-5.1) g/dL Lipase 168 (23-300) U/L Influenza A (RT-PCR) Negative (Negative) Influenza B (RT-PCR) Negative (Negative) RSV (RT-PCR) Negative (Negative) SARS-CoV-2 RNA (RT-PCR) Positive A (Negative) ABG Data ABG results: 11/14/24 12:07 Puncture Site Right radial ABG pH 7.522 H* ABG pCO2 23.5 L* ABG pO2 73.3 L ABG PO2/FiO2 Ratio 3.49 ABG HCO3 18.8 L ABG O2 Saturation 96.4 ABG O2 Content 17.0 ABG Base Excess -2.3 A-a Gradient 48.3 Oxyhemoglobin 95.0 Total Hemoglobin 12.7 O2 Delivery Device Room air O2 Liters/Min Not Reportable FiO2 21 Imaging Data Radiologist's impression: ITS Impressions Chest X-Ray 11/14/24 13:34 Impression: No acute abnormality. Chest CTA 11/14/24 14:35 IMPRESSION: No CT evidence of acute pulmonary embolus. Pulmonary opacities suggestive of atypical/viral infection Discharge Plan Discharge Clinical Impression: Chest pain, Elevated brain natriuretic peptide (BNP) level Patient Disposition: Still a Patient Condition: Stable
--- NOTE | 2024-11-14 14:47 | ECG_ITS ---
Test Date: 2024-11-14 14:55:22 Measurements Intervals [place] Rate: 98 P: 0 AL: 0 QRS: 32 QRSD: 98 T: 20 QT: 397 QTc: 509 Interpretive Statements ATRIAL FIBRILLATION NONSPECIFIC ST & T-WAVE ABNORMALITY ABNORMAL RHYTHM ECG Compared to ECG 11/14/2024 11:29:39 T-wave abnormality still present Electronically Signed On 11-14-2024 22:41:47 DESIGNER ARCHITECT by Rhonda Barriga M.D.
--- NOTE | 2024-11-14 15:08 | PC.NURSE ---
Meal tray ordered for pt.
[2024-11-14 15:15] LABS: Troponin I 0.026 ng/mL (0.000-0.034)
[2024-11-14 15:34] LABS: Glucose Point of Care 117 mg/dl (65-105)
--- NOTE | 2024-11-14 15:50 | P.HP_ITS ---
H&P: HPI History of Present Illness Date/Time: 11/14/24 15:50 Chief Complaint: Chest pain Narrative: 63-year-old female history of AFib, bladder cancer, diabetes type 2, COPD, bipolar, and hypertension presents the hospital with chest pain. Patient was diagnosed with COVID on 11/04/2024, during her hospitalization she received dexamethasone but did not receive remdesivir. She also had Peter and was seen by Nephrology. She was also treated for hyponatremia and discharged on sodium tabs. Patient states that she has left the hospital she has had trouble doing activities daily living due to the shortness of breath. She states that she also has slept well which is likely due to the steroids she was on for COVID. She states that today she felt worse with frequent coughing and chest pain so she came back into the hospital. In the ED the patient has leukocytosis at 15.9, pH of 7. 522, pCO2 of 23.5, PO2 of 73.3, bicarb of 18.8, sodium of 128, BUN of 22 which is improved from last week, lactic acid of 2.2, BNP of 7128. CTA shows no evidence of acute pulmonary embolism, does show pulmonary opacities suggestive of atypical viral infection. In the emergency room the patient was given a 500 cc bolus and 50 g of albumin. EKG shows AFib rate of 98. Review of Systems Review of Systems: 12 systems were reviewed and are negativ e except for as per HPI. [facility] Past Medical History Medical History Colon polyps Hemorrhoid Paroxysmal atrial fibrillation History of diverticulitis Osteoarthritis Tobacco dependence Bladder cancer Hypertension Peripheral arterial disease Type 2 diabetes mellitus Gastroesophageal reflux disease Obstructive sleep apnea Cerebrovascular accident Chronic obstructive pulmonary disease Bipolar disorder Coronary artery disease Anxiety Hyperlipidemia Macular degeneration History of gastroesophageal reflux (GERD) History of diabetes mellitus History of COPD History of bladder cancer Surgical History Surgical History History of transurethral resection of bladder tumor (TURBT) History of vascular surgery Bilateral iliac stent. History of section History of cardiac catheterization History of left-sided carotid endarterectomy History of carpal tunnel release History of colonoscopy History of esophagogastroduodenoscopy (EGD) History of cholecystectomy Family History Family History (Updated 11/14/24 @ 22:18 by Tony Jimenez RN) Sibling Diabetes mellitus Family history of malignant neoplasm Heart disease Social History Social History Smoking packs per day: 2 Smoking cigarettes per day: 40.0 Years smoked: 30 Smoking pack-years: 60.00 Smoking status: Former smoker Second hand tobacco smoke exposure: No Smoking end date: 10/15/24 Additional smoking assessment comments: pt. was smoking 3 packs a day and has cut down to half a pack daily Alcohol intake: former Substance use: never Substance use type: marijuana Last use: 09/22/23 Do You Feel Safe in your Home?: Yes Lack of Transportation: No Lack of Food: Never True Current Housing: I Have Housing Concerned About Future Housing: No Difficulty Paying Gas/Electric Bills: No Difficulty Paying for Meds: No Currently Unemployed: No Education: High School Diploma/GED Difficulty w/ Childcare or Family Care: No Living arrangements: alone Spiritual care concerns: No Meds Home Medications and Allergies Home Medications ?Medication ?Instructions ?Recorded ?Confirmed ?Type losartan 100 mg tablet 100 mg PO DAILY 09/12/20 11/14/24 History clopidogrel 75 mg tablet 75 mg PO DAILY 05/20/21 11/14/24 History albuterol sulfate 90 mcg/actuation 2 puff inhalation QID PRN 07/29/23 11/14/24 Rx aerosol inhaler shortness of breath or wheezing #6.7 grams inhalational spacing device #1 ea 07/29/23 11/14/24 Rx (Aerochamber MV spacer) trazodone 50 mg tablet 50 mg PO HS PRN Insomnia 08/07/23 11/14/24 History apixaban 5 mg tablet (Eliquis) 5 mg PO Q12HR #60 tabs 08/11/23 11/14/24 Rx lorazepam 0.5 mg tablet 0.5 mg PO TID 08/26/23 11/14/24 History metformin 500 mg tablet 500 mg PO BID 08/26/23 11/14/24 History metoclopramide HCl 10 mg tablet 10 mg PO BID PRN nausea and 08/26/23 11/14/24 Rx (Reglan) vomiting #60 tabs ezetimibe 10 mg tablet 10 mg PO DAILY 09/23/23 11/14/24 History budesonide-formoterol HFA 160 See Rx Instructions .Route .COMPLEX 10/25/23 11/14/24 History mcg-4.5 mcg/actuation aerosol inhaler (Symbicort) cyclobenzaprine 10 mg tablet 10 mg PO PRN muscle spasm 10/25/23 11/14/24 History ergocalciferol (vitamin D2) 1,250 50,000 unit PO WEEKLY 10/25/23 11/14/24 History mcg (50,000 unit) capsule hydrocodone 5 mg-acetaminophen 325 1 tablet PO Q8H PRN Pain Rated 4-6 10/28/23 11/14/24 Rx mg tablet #15 tabs oxybutynin chloride 5 mg tablet 5 mg PO TID #90 tabs 10/28/23 11/14/24 Rx Zyrtec 1 tab-cap PO DAILY 03/02/24 11/14/24 History cromolyn 4 % eye drops 1 drp EACH EYE DAILY 03/02/24 11/14/24 History evolocumab 140 mg/mL subcutaneous 140 mg subcut MONTHLY 03/02/24 11/14/24 History pen injector (Latha Lau) fluticasone propionate 50 1 spray intranasal DAILY 03/02/24 11/14/24 History mcg/actuation nasal spray,suspension dexlansoprazole 30 mg See Rx Instructions .Route 08/24/24 11/14/24 Rx capsule,biphase delayed release .COMPLEX #30 caps hydrocortisone 2.5 % topical cream 1 applic RECTAL DAILY PRN 10/02/24 11/14/24 Rx with perineal applicator hemorrhoids #30 grams albuterol sulfate 2.5 mg/3 mL 2.5 mg inhalation Q6H PRN 11/05/24 11/14/24 History (0.083 %) solution for nebulization shortness of breath or wheezing albuterol sulfate 90 mcg/actuation 2 puff inhalation Q6H PRN 11/05/24 11/14/24 History aerosol inhaler shortness of breath or wheezing fenofibrate 120 mg tablet 120 mg PO DAILY 11/05/24 11/14/24 History fluoxetine 40 mg capsule 40 mg PO QPM 11/05/24 11/14/24 History montelukast 10 mg tablet 10 mg PO QPM 11/05/24 11/14/24 History sotalol 120 mg tablet 120 mg PO Q12H 11/05/24 11/14/24 History magnesium oxide 400 mg (241.3 mg 400 mg PO DAILY #7 tabs 11/10/24 11/14/24 Rx magnesium) tablet nitrofurantoin 100 mg PO Q12HR #17 caps 11/10/24 11/14/24 Rx monohydrate/macrocrystals 100 mg capsule (Macrobid) ondansetron HCl 4 mg tablet 4 mg PO Q8H #10 tabs 11/10/24 11/14/24 Rx sodium chloride 1,000 mg soluble 1,000 mg PO BID #30 tabs 11/10/24 11/14/24 Rx tablet Allergies Allergy/AdvReac Type Severity Reaction Status Date / Time haloperidol Allergy Unknown Other Verified 11/07/24 14:05 risperidone Allergy Unknown MY MOUTH Verified 11/07/24 14:05 TIGHTENS UP -TD simvastatin Allergy Unknown Other Verified 11/07/24 14:05 Mdztlxa-FYN-KaS Reductase Allergy Other Verified 11/07/24 14:05 Inhibitor codeine AdvReac Unknown NAUSEA AND Verified 11/07/24 14:05 VOMITING triazolam AdvReac Unknown N/V Verified 11/07/24 14:05 Wasp Allergy Unknown WASP Uncoded 11/07/24 14:05 STING- CLOSES MY THROAT Vital Signs Vital Signs - 24 hr 11/14/24 11:20 11/14/24 12:26 11/14/24 12:26 Temperature 97.4 F L Pulse Rate 119 H 111 H Respiratory Rate 22 H 21 H Blood Pressure 128/42 L 91/65 L Pulse Oximetry 99 99 Oxygen Delivery Room Air Room Air 11/14/24 13:36 11/14/24 15:06 Temperature Pulse Rate 93 103 H Respiratory Rate 16 16 Blood Pressure 81/66 L 85/68 L Pulse Oximetry 100 99 Oxygen Delivery Exam Narrative: General: No acute distress, appears stated age. HEENT: normocephalic, atraumatic. Mucous membranes moist. EOMI, PERRLA, bilateral sclera anicteric, no conjunctival injection. Neck supple without JVD, lymphadenopathy, or bruit. Respiratory: clear to ascultation bilaterally. No rales/rhonic/wheezes. Cardiovascular: Irregular rate and rhythm, normal S1-S2 upon ascultation. No murmurs, rubs, or clicks. PMI is nondisplaced, capillary refill less than 3 second. Abdomen: Soft, round, no pulsatile masses, nondistended and nontender. No rebound, no guarding. No CVA tenderness, no hepatosplenomegaly. Bowel sounds present to all four quadrants. No high pitch or tinkling sounds, resonant to percussion. Extremities: No cyanosis, clubbing, or edema present. Pulses are palpable 2/2. Active ROM to all four extremities. Neuro: Alert and orientated x 4. PERRLA. Cranial nerves 2-12 intact without fo skye deficit. Skin: Warm, dry, and intact, without rash, erythema, or lesion. Psych: pleasant, cooperative, normal speech, normal affect, no hallucinations, no dysarthia H&P: Results Labs Labs: Short CBC 11/14/24 Range/Units 11:57 WBC 15.9 H (4.5-10.0) K/mm3 Hgb 13.0 (12.0-15.0) g/dL Hct 37.7 (37.0-47.0) % Plt Count 336 D (150-375) k/mm3 BMP 11/14/24 11:57 Sodium 128 L Potassium 3.7 Chloride 104 Carbon Dioxide 23 BUN 22 H D Creatinine 0.90 Glucose 167 H Calcium 8.2 L Cardiac Enzymes 11/14/24 11/14/24 Range/Units 11:57 14:46 Troponin I 0.025 0.026 (0.000-0.034) ng/mL Liver Function 11/14/24 Range/Units 11:57 Total Bilirubin 1.1 (0.2-1.3) mg/dL AST 22 (14-36) U/L ALT 15 (6-35) U/L Alkaline Phosphatase 73 (38-126) U/L Albumin 3.4 L (3.5-5.1) g/dL Assessment and Plan Assessment and plan (1) Chest pain: Code(s): R07.9 - Chest pain, unspecified Status: Acute Assessment and Plan: Baseline troponin 0.025 Repeat troponin flat Aspirin 324 x 1 Guaifenesin (2) Viral pneumonia: Code(s): J12.9 - Viral pneumonia, unspecified Status: Acute Assessment and Plan: Blood cultures pending No antibiotics indicated (3) Hypotension: Code(s): I95.9 - Hypotension, unspecified Status: Acute Assessment and Plan: 500 cc bolus given in 50 g of albumin given 2 g of calcium (4) Hyponatremia: Code(s): E87.1 - Hypo-osmolality and hyponatremia Status: Acute Assessment and Plan: Patient was discharged on 1000 mg sodium tabs twice a day, she is hyponatremic on labs however she believes that she missed the last 2 doses Continue 1000 mg 7 tabs twice a day (5) Elevated brain natriuretic peptide (BNP) level: Code(s): R79.89 - Other specified abnormal findings of blood chemistry Status: Acute Assessment and Plan: No history of CHF Echocardiogram pending (6) Atrial fibrillation: Code(s): I48.91 - Unspecified atrial fibrillation Status: Acute Assessment and Plan: Rate controlled Patient on Betapace, hold for hypotension (7) Type 2 diabetes mellitus: Code(s): E11.9 - Type 2 diabetes mellitus without complications Status: Acute Assessment and Plan: Diabetic diet Accu-Cheks a.c. HS SSI Hold home anti hyperglycemic medications (8) Hypertension: Code(s): I10 - Essential (primary) hypertension Status: Acute Assessment and Plan: Hold antihypertensives due to hypotension Quality VTE Prophylaxis VTE prophylaxis: mechanical ordered and pharmacologic ordered Hospitalist MIPS Advance Care Plan I have confirmed that the patient's Advanced Care Plan is present, code status is documented, or surrogate decision maker is listed in patient medical record.: Yes Medication Reconciliation I have utilized all available resources to obtain, update and review the patients current medications (includes all prescriptions, OTC, herbals, cannabis, and nutritional supplements).: Yes
[2024-11-14] MEDS: ALBUMIN HUMAN 25% 25 GM/100 ML 200 ML IVPB (16:43)
[2024-11-14] MEDS: ACETAMINOPHEN 325 MG TABLET 650 MG PO (16:51)
[2024-11-14] MEDS: ONDANSETRON INJ 4 MG/2 ML VIAL IV PUSH (16:51)
--- NOTE | 2024-11-14 17:48 | PC.NURSE ---
Pt. urinated and had a BM in depend. Perineal area cleaned with soap and water. Dirty depend removed and clean depend applied. Pt. offered a pure wick but she states those don't work for me because I move around so much.
[2024-11-14 17:52] LABS: Troponin I 0.022 ng/mL (0.000-0.034)
--- NOTE | 2024-11-14 18:26 | PC.NURSE ---
Pt. urinated and had a BM in depend again. Lily care performed with soap and water. Clean depend applied.
--- NOTE | 2024-11-14 18:30 | PC.NURSE ---
Report called to ADONAY Adamson. All questions answered.
--- NOTE | 2024-11-14 19:49 | ADMGEN ---
This patient, Rody Zaidi, was admitted to IMU Room 201-01 at 1851. Patient/family oriented to hospital policies and general routines including ID bracelet, bed and alarms, visiting hours, pain management, procedures, bathroom and other care routines, personal items, smoking policy, room service/diet, and visiting hours. Information on how to activate the Rapid Response Team has been discussed. Patient/Family are encouraged to report perceived risks to care and to ask questions if they do not understand what they are told or what they should do.
[2024-11-14] MEDS: CALCIUM GLUC 1,000 MG/NS 50 ML 1,000 MG/50 ML BAG 100 MG IVPB (20:09)
[2024-11-14 21:21] LABS: Glucose Point of Care 103 mg/dl (65-105)
[2024-11-14] MEDS: HYDROcodone/acetaminophen (*CRX) 5-325 MG TABLET 1 TAB PO (21:35)
[2024-11-14] MEDS: CALCIUM CARBONATE (TUMS) 500 MG (200 MG ELEMENTAL) PO (21:36)
[2024-11-15] VITALS (22 sets, daily range): BP systolic 89–128; BP diastolic 50–77; PULSE 57–100; RESP 16–18; TEMP 36.6–37.1; O2SAT 97–99
[2024-11-15] MEDS: ONDANSETRON INJ 4 MG/2 ML VIAL IV PUSH (00:20)
[2024-11-15] MEDS: LORazepam (*CRX) 0.5 MG TABLET PO ×4 (00:20→18:42)
[2024-11-15] MEDS: ACETAMINOPHEN 325 MG TABLET 650 MG PO ×2 (04:27→13:54)
[2024-11-15 05:17] LABS: Basophils Absolute Auto 0.1 K/mm3 (0.0-0.1); Basophils Percent Auto 0.5 % (0.2-1.2); Eosinophils Absolute Auto 0.1 K/mm3 (0-0.3); Eosinophils Percent Auto 0.9 % (0-4.4); Hematocrit 31.7 % (37.0-47.0); Hemoglobin 10.5 g/dL (12.0-15.0); Immature Granulocyte Absolute 0.08 K/mm3 (0.00-0.031); Immature Granulocyte Percent A 0.8 % (0-0.5); Lymphocytes Absolute Auto 1.63 K/mm3 (0.9-3.2); Lymphocytes Percent Auto 15.7 % (18.3-44.2); Mean Corpuscular HGB Conc 33.1 g/dl (32-36); Mean Corpuscular Hemoglobin 28.1 pg (26-34); Mean Corpuscular Volume 84.8 fl (80-100); Mean Platelet Volume 11.7 fl (7.4-10.4); Neutrophils Absolute Auto 7.5 K/mm3 (1.3-6.7); Neutrophils Percent Auto 72.1 % (45.5-73.1); Platelet Count Result 234 k/mm3 (150-375); Red Blood Count 3.74 M/mm3 (4.2-5.4); Red Cell Distribution Width 13.5 % (11.5-14.5); White Blood Count 10.4 K/mm3 (4.5-10.0)
[2024-11-15 05:35] LABS: Anion Gap 4 mmol/L (4-12); Blood Urea Nitrogen 19 mg/dL (7-17); Calcium 8.5 mg/dL (8.4-10.2); Carbon Dioxide 24 mmol/L (22-30); Chloride 104 mmol/L (98-107); Estimated CRCL calculation 61 ml/min; Estimated Glomerular Filt Rate > 60; Glucose 114 mg/dL (65-110); Potassium 3.1 mmol/L (3.4-5.0); Sodium 132 mmol/L (137-145)
[2024-11-15 07:52] LABS: Glucose Point of Care 123 mg/dl (65-105)
[2024-11-15] MEDS: guaiFENesin/DEXTROMETHORPHAN 10 ML UDC PO ×4 (08:39→21:27)
[2024-11-15] MEDS: POTASSIUM CHLORIDE 20 MEQ PACKET (FOR LIQUID) 40 MEQ PO (08:40)
[2024-11-15] MEDS: CLOPIDOGREL BISULFATE 75 MG TABLET PO (08:40)
[2024-11-15] MEDS: APIXABAN 5 MG TABLET PO ×2 (08:40→21:26)
[2024-11-15] MEDS: SODIUM CHLORIDE 1 GM TABLET PO ×2 (08:41→17:14)
[2024-11-15] MEDS: EZETIMIBE 10 MG TABLET PO (08:41)
[2024-11-15] MEDS: NITROFURANTOIN MONOHYD MACROCR 100 MG CAP PO ×2 (08:41→21:26)
--- NOTE | 2024-11-15 09:15 | PC.NURSE ---
PT unable to tolerate Potassium powder mixed with water. PT has taken the potassium pills before. Notified Dr Aceves of this and received order for 40MEQ of PO potassium. medication interaction acknowledged by .
[2024-11-15] MEDS: POTASSIUM CHLORIDE 20 MEQ ER TABLET 40 MEQ PO (09:35)
[2024-11-15] MEDS: HYDROcodone/acetaminophen (*CRX) 5-325 MG TABLET 1 TAB PO ×2 (09:39→21:38)
[2024-11-15] MEDS: FLUTICASONE/SALMETEROL 115-21 MCG INHALER 1 PUFF 2 PUFF INHALATION ×2 (10:11→20:16)
[2024-11-15 11:28] LABS: Glucose Point of Care 143 mg/dl (65-105)
--- NOTE | 2024-11-15 14:20 | PM.IMPN ---
Progress Note: A&P Assessment and Plan (1) Chest pain: Code(s): R07.9 - Chest pain, unspecified Status: Acute Assessment and Plan: Patient presents with chest pain. Troponin negative x3. EKG showing AFib, ST deviation and moderated T wave changes but no change from 10 days ago. CTA shows no PE but does show pulmonary opacities suggestive of atypical viral infection. Aspirin 324 x 1. Continue Plavix. Suspect chest pain related to pulmonary disease. (2) COVID-19: Code(s): U07.1 - COVID-19 Status: Acute Assessment and Plan: Patient was positive for COVID on 11/04 and was noted to be positive again this admission. Influenza and RSV negative. Imaging as above BCx NGTD. Abx on hold. No O2 requirement. Continue supportive care. (3) Hypotension: Code(s): I95.9 - Hypotension, unspecified Status: Acute Assessment and Plan: BP dropped to 81/66 in ED. A fluid bolus and albumin given with good response. She was on losartan and sotalol on admission. Losartan held. Sotalol continued but being held due to soft BP. Add Midodrine. Lower sotalol dose due to HoTN and QTc 509. (4) Hyponatremia: Code(s): E87.1 - Hypo-osmolality and hyponatremia Status: Acute Assessment and Plan: Patient with hyponatremia last admission and was discharged on NaCl 1gm bid. Also discharged on her home Prozac. On admission, Na 128. She was treated with IV fluids with improvement. NaCl tabs resumed. Will resume prozac but decrease dose with plans to wean off. Continue to monitor (5) Elevated brain natriuretic peptide (BNP) level: Code(s): R79.89 - Other specified abnormal findings of blood chemistry Status: Acute Assessment and Plan: BNP 7120. Imaging as above. Patient received IV fluids for HoTN. No history of CHF. Echo from 11/06/24 reviewed. No need to repeat Echo. Repeat CXR (6) Atrial fibrillation: Code(s): I48.91 - Unspecified atrial fibrillation Status: Acute Assessment and Plan: Patient with AFib. She is rate controlled. Continue Betapace at lower dose as tolerated. Contineu Eliquis. (7) Type 2 diabetes mellitus: Code(s): E11.9 - Type 2 diabetes mellitus without complications Status: Acute Assessment and Plan: A1c 6.5. The patient's blood glucose was reviewed on 11/15/24 Glucose remains well controlled. Continue AccuCheks covering with sliding scale. Hypoglycemia protocol available as needed. Continue to monitor Plan DVT prophylaxis -Eliquis Code status -full Subjective Date/time seen: 11/15/24 14:20 Interval history: 63yo female with DM, COPD and hx of bladder CA here for CP and SOB. She was recently discharged from [facility] on 11/10 for hyponatremia, COVID, AFIB/RVR, JAYLEN and sepsis from pyelonephritis. Assuming care. Chart reviewed. She feels weak. Her BP was low this morning but better now. Sotalol being held at times. She has SOB and LAKE. She is walking to bedisde commode mostly. She walked to BR but became more SOB. No CP. Eating better. Occasional nausea Exam Narrative: AF 97.8 101/60 91 18 99% ra Gen - NARD Chest - CTA bilaterally, nml RR CV - RRR S1/S2. Tele showing PACs but mostly sinus Abd - Soft, NT/ND, Positive BS Ext - No pedal edema. 2+ DP pulses Neuro - Alert and oriented. Nonfocal exam. Psych - Nml mood and affect Skin - Warm and dry Objective Data Vital Signs Vital Signs: Vital Signs - 24 hr 11/14/24 15:06 11/14/24 16:23 11/14/24 16:44 Temperature Pulse Rate 103 H 98 102 H Respiratory Rate 16 21 H 18 Blood Pressure 85/68 L 85/70 L 83/69 L Pulse Oximetry 99 98 100 Oxygen Delivery 11/14/24 17:44 11/14/24 18:25 11/14/24 19:21 Temperature 98.2 F Pulse Rate 89 95 57 L Respiratory Rate 22 H 16 18 Blood Pressure 87/60 L 100/81 108/90 Pulse Oximetry 98 100 96 Oxygen Delivery 11/14/24 20:00 11/14/24 21:28 11/14/24 21:32 Temperature 98.1 F 98.1 F Pulse Rate 91 102 H 102 H Respiratory Rate 20 20 Blood Pressure 104/64 104/64 Pulse Oximetry 99 99 Oxygen Delivery 11/14/24 22:00 11/14/24 22:50 11/14/24 23:55 Temperature 98.1 F Pulse Rate 91 95 89 Respiratory Rate 20 Blood Pressure 110/62 Pulse Oximetry 98 Oxygen Delivery 11/15/24 00:00 11/15/24 02:00 11/15/24 04:00 Temperature Pulse Rate 91 100 96 Respiratory Rate Blood Pressure Pulse Oximetry Oxygen Delivery 11/15/24 05:24 11/15/24 06:00 11/15/24 08:00 Temperature 98.1 F 97.9 F Pulse Rate 99 87 84 Respiratory Rate 18 16 Blood Pressure 122/56 L 89/50 L Pulse Oximetry 97 99 Oxygen Delivery 11/15/24 08:00 11/15/24 08:00 11/15/24 10:00 Temperature Pulse Rate 79 83 Respiratory Rate Blood Pressure Pulse Oximetry Oxygen Delivery Room Air 11/15/24 10:21 11/15/24 11:00 11/15/24 11:33 Temperature 97.8 F Pulse Rate 84 Respiratory Rate 18 Blood Pressure 115/71 101/60 Pulse Oximetry 97 99 Oxygen Delivery Room Air 11/15/24 12:00 11/15/24 12:00 11/15/24 13:34 Temperature Pulse Rate 82 91 Respiratory Rate Blood Pressure Pulse Oximetry Oxygen Delivery Room Air Intake/Output Intake/Output: Intake & Output 11/12/24 11/13/24 11/14/24 11/15/24 23:59 23:59 23:59 23:59 Intake Total 750 1320 Output Total 400 Balance 750 920 Meds/Results Medications: Active Medications Generic Name Dose Route Start Last Admin Trade Name Freq PRN Reason Stop Dose Admin Acetaminophen 650 mg 11/14/24 14:59 11/15/24 13:54 Acetaminophen 325 Mg Tablet PO 650 mg Q4H PRN Administration Mild Pain (1-3) or Fever Hydrocodone Bitart/Acetaminophen 1 tab 11/14/24 21:37 11/15/24 09:39 Hydrocodone/Acetaminophen (*Crx) 5-325 Mg Tablet PO 1 tab Q8H PRN Administration Pain Rated 4-6 Albuterol 2.5 mg 11/14/24 21:30 Albuterol Sulfate Neb 2.5 Mg/3 Ml Inh INHALATION Q6HRT PRN shortness of breath or wheezing Apixaban 5 mg 11/15/24 09:00 11/15/24 08:40 Apixaban 5 Mg Tablet PO 5 mg Q12HR LANCE Administration Clopidogrel Bisulfate 75 mg 11/15/24 09:00 11/15/24 08:40 Clopidogrel Bisulfate 75 Mg Tablet PO 75 mg DAILY LANCE Administration Dextrose 12.5 gm 11/15/24 01:54 Dextrose 50% 25 Gm/50 Ml Syringe IV PUSH PRN PRN Hypoglycemia Protocol Docusate Sodium 100 mg 11/15/24 09:00 11/15/24 08:40 Docusate Sodium 100 Mg Capsule PO Not Given DAILY LANCE Ezetimibe 10 mg 11/15/24 09:00 11/15/24 08:41 Ezetimibe 10 Mg Tablet PO 10 mg DAILY LANCE Administration Fluoxetine HCl 20 mg 11/15/24 18:00 Fluoxetine Hcl 20 Mg Capsule PO QPM LANCE Glucagon 1 mg 11/15/24 01:54 Glucagon For Inj 1 Mg Vial IM PRN PRN Hypoglycemia Protocol Glucose 15 gm 11/15/24 01:54 Glucose Oral Gel 15 Gm Of Glucse In 37.5 Gm Tube PO PRN PRN Hypoglycemia Protocol Guaifenesin/Dextromethorphan 10 ml 11/15/24 02:00 11/15/24 13:47 Guaifenesin/Dextromethorphan 10 Ml Udc PO 10 ml Q4H LANCE Administration Dextrose 1,000 mls @ 100 mls/hr 11/15/24 01:54 Dextrose 5% 1,000 Ml IVPB PRN PRN Hypoglycemia Protocol Insulin Aspart 3 - 6 units 11/15/24 08:00 11/15/24 12:03 Insulin Aspart (*Bkc) 100 Units/Ml SUB-Q Not Given TIDWM [facility] Protocol Insulin Aspart 1 - 3 units 11/15/24 21:00 Insulin Aspart (*Bkc) 100 Units/Ml SUB-Q HS [facility] Protocol Lorazepam 0.5 mg 11/15/24 09:00 11/15/24 13:47 Lorazepam (*Crx) 0.5 Mg Tablet PO 0.5 mg TID LANCE Administration Miscellaneous Information 0 each 11/14/24 00:01 Cromolyn 4% Eye Drops Nonform Can Pt Bring From Home? XX 12/14/24 00:00 CLARIFY [facility] Miscellaneous Information 0 each 11/15/24 00:01 Fenofibrate 120mg Nonform Can Pt Bring From Home? XX 12/15/24 00:00 CLARIFY [facility] Nitrofurantoin Macrocrystals 100 mg 11/15/24 09:00 11/15/24 08:41 Nitrofurantoin Monohyd Macrocr 100 Mg Cap PO 100 mg Q12HR LANCE Administration Non-Formulary Medication 1 drop 11/15/24 09:00 Cromolyn EACH EYE 12/15/24 08:59 DAILY LANCE Non-Formulary Medication 120 mg 11/15/24 09:00 Fenofibrate PO 12/15/24 08:59 DAILY [facility] Ondansetron HCl 4 mg 11/14/24 14:59 11/15/24 00:20 Ondansetron Inj 4 Mg/2 Ml Vial IV PUSH 4 mg Q4H PRN Administration Nausea Oxybutynin Chloride 5 mg 11/15/24 09:00 11/15/24 13:55 Oxybutynin Chloride 5 Mg Tablet PO Not Given TID LANCE Perflutren Lipid Microsphere 0 ml 11/14/24 14:59 Perflutren Lipid Microspheres 1.5 Ml Vial Diluted To 10 Ml Total Volume IV PUSH 11/17/24 15:00 ONCE PRN adequate visualization Protocol Fluticasone/Salmeterol 2 puff 11/15/24 08:00 11/15/24 10:11 Fluticasone/Salmeterol 115-21 Mcg Inhaler 1 Puff INHALATION 2 puff Q12HRT LANCE Administration Sodium Chloride 1 gm 11/15/24 09:00 11/15/24 08:41 Sodium Chloride 1 Gm Tablet PO 1 gm BID LANCE Administration Sotalol HCl 120 mg 11/14/24 21:40 11/15/24 13:34 Sotalol Hcl 40 Mg Tablet PO Not Given Q12HR [facility] Radiology Results: ITS Impressions Chest X-Ray 11/14/24 13:34 Impression: No acute abnormality. Chest CTA 11/14/24 14:35 IMPRESSION: No CT evidence of acute pulmonary embolus. Pulmonary opacities suggestive of atypical/viral infection Labs Labs: Laboratory Results - last 24 hr 11/14/24 11/14/24 11/14/24 14:46 15:31 17:23 WBC RBC Hgb Hct MCV MCH MCHC RDW Plt Count MPV Immature Gran % (Auto) Neut % (Auto) Lymph % (Auto) [place] % (Auto) Eos % (Auto) Baso % (Auto) Lymph # (Auto) [place] # (Auto) Eos # (Auto) Baso # (Auto) Abs Immat Gran (auto) Absolute Neuts (auto) Absolute Nucleated RBC Nucleated RBC % Sodium Potassium Chloride Carbon Dioxide Anion Gap BUN Creatinine Estim Creat Clear Calc Estimated GFR Glucose POC Capillary Glucose 117 H Calcium Troponin I 0.026 0.022 11/14/24 11/15/24 11/15/24 20:39 04:10 07:28 WBC 10.4 H RBC 3.74 L Hgb 10.5 L Hct 31.7 L MCV 84.8 MCH 28.1 MCHC 33.1 RDW 13.5 Plt Count 234 MPV 11.7 H Immature Gran % (Auto) 0.8 H Neut % (Auto) 72.1 Lymph % (Auto) 15.7 L [place] % (Auto) 10.0 H Eos % (Auto) 0.9 Baso % (Auto) 0.5 Lymph # (Auto) 1.63 [place] # (Auto) 1.0 H Eos # (Auto) 0.1 Baso # (Auto) 0.1 Abs Immat Gran (auto) 0.08 H Absolute Neuts (auto) 7.5 H Absolute Nucleated RBC 0.000 Nucleated RBC % 0.0 Sodium 132 L Potassium 3.1 L Chloride 104 Carbon Dioxide 24 Anion Gap 4 BUN 19 H Creatinine 0.80 Estim Creat Clear Calc 61 Estimated GFR > 60 Glucose 114 H POC Capillary Glucose 103 123 H Calcium 8.5 Troponin I 11/15/24 11:18 WBC RBC Hgb Hct MCV MCH MCHC RDW Plt Count MPV Immature Gran % (Auto) Neut % (Auto) Lymph % (Auto) [place] % (Auto) Eos % (Auto) Baso % (Auto) Lymph # (Auto) [place] # (Auto) Eos # (Auto) Baso # (Auto) Abs Immat Gran (auto) Absolute Neuts (auto) Absolute Nucleated RBC Nucleated RBC % Sodium Potassium Chloride Carbon Dioxide Anion Gap BUN Creatinine Estim Creat Clear Calc Estimated GFR Glucose POC Capillary Glucose 143 H Calcium Troponin I
--- NOTE | 2024-11-15 16:24 | PCRCNOTE ---
PT. HAS A CPAP AT HOME WHICH SHE DOESN'T WEAR AND STATES HAS BEEN UP IN HER CLOSET SINCE SHE GOT IT 6 YEARS AGO. PT. DOES NOT WANT TO USE ONE OF OUR MACHINES. NO ORDER PUT IN DUE TO PT. STATING SHE DOESN'T WANT TO WEAR ONE. Sayra. NOTIFIED.
[2024-11-15 16:42] LABS: Glucose Point of Care 145 mg/dl (65-105)
[2024-11-15] MEDS: ALBUTEROL SULFATE (*SP) INHALER 2 PUFF INHALATION (16:50)
[2024-11-15] MEDS: MIDODRINE HCL 2.5 MG TABLET 5 MG PO (17:14)
[2024-11-15] MEDS: BENZOCAINE/MENTHOL (*BKC) 18 EA LOZENGE 1 LOZENGE PO (18:37)
[2024-11-15 21:17] LABS: Glucose Point of Care 158 mg/dl (65-105)
[2024-11-15] MEDS: SOTALOL HCL 80 MG TABLET PO (21:27)
[2024-11-16] VITALS (20 sets, daily range): BP systolic 104–122; BP diastolic 58–76; PULSE 62–87; RESP 16–22; TEMP 36.6–36.9; O2SAT 97–100; BMI 29.0
[2024-11-16] MEDS: ACETAMINOPHEN 325 MG TABLET 650 MG PO (03:14)
--- NOTE | 2024-11-16 03:23 | ECG_ITS ---
Test Date: 2024-11-16 04:43:33 Measurements Intervals [place] Rate: 60 P: 60 IN: 154 QRS: 36 QRSD: 95 T: -28 QT: 434 QTc: 435 Interpretive Statements SINUS RHYTHM WITH SINUS ARRHYTHMIA ST DEVIATION AND MODERATE T-WAVE ABNORMALITY, CONSIDER ANTEROLATERAL AND INFERIOR ISCHEMIA [-0.1+ mV T WAVE IN V3-V6 AND II, III, AVF] WARNING: DATA QUALITY MAY AFFECT INTERPRETATION Compared to ECG 11/14/2024 14:55:22 Possible ischemia now present Atrial fibrillation no longer present T-wave abnormality still present Electronically Signed On 11-20-2024 11:18:01 LEARNING SUPPORT AIDE by Martin Rubio M.D.
[2024-11-16] MEDS: ONDANSETRON INJ 4 MG/2 ML VIAL IV PUSH (03:35)
[2024-11-16 05:22] LABS: Hematocrit 28.2 % (37.0-47.0); Hemoglobin 9.4 g/dL (12.0-15.0); Mean Corpuscular HGB Conc 33.3 g/dl (32-36); Mean Corpuscular Hemoglobin 28.4 pg (26-34); Mean Corpuscular Volume 85.2 fl (80-100); Mean Platelet Volume 11.3 fl (7.4-10.4); Platelet Count Result 186 k/mm3 (150-375); Red Blood Count 3.31 M/mm3 (4.2-5.4); Red Cell Distribution Width 13.6 % (11.5-14.5); White Blood Count 6.2 K/mm3 (4.5-10.0)
[2024-11-16 05:28] LABS: Albumin Level 3.2 g/dL (3.5-5.1); Anion Gap 2 mmol/L (4-12); Blood Urea Nitrogen 17 mg/dL (7-17); Calcium 8.2 mg/dL (8.4-10.2); Carbon Dioxide 24 mmol/L (22-30); Chloride 106 mmol/L (98-107); Estimated CRCL calculation 61 ml/min; Estimated Glomerular Filt Rate > 60; Glucose 116 mg/dL (65-110); Magnesium 1.5 mg/dL (1.6-2.3); Phosphorus 3.4 mg/dL (2.5-4.5); Potassium 3.6 mmol/L (3.4-5.0); Sodium 132 mmol/L (137-145)
--- NOTE | 2024-11-16 07:00 | ECG_ITS ---
Test Date: 2024-11-16 10:12:33 Measurements Intervals [place] Rate: 59 P: 30 MO: 134 QRS: 35 QRSD: 97 T: -34 QT: 431 QTc: 430 Interpretive Statements SINUS BRADYCARDIA WITH SINUS ARRHYTHMIA ST DEVIATION AND MODERATE T-WAVE ABNORMALITY, CONSIDER ANTEROLATERAL AND INFERIOR ISCHEMIA [-0.1+ mV T-WAVE IN V3-V6 AND II, III, AVF] Compared to ECG 11/16/2024 04:43:33 Sinus rhythm no longer present T-wave abnormality still present Possible ischemia still present Electronically Signed On 11-20-2024 11:21:30 PUBLIC EMPLOYMENT MEDIATOR by Martin Rubio M.D.
[2024-11-16 08:46] LABS: Glucose Point of Care 132 mg/dl (65-105)
[2024-11-16] MEDS: FLUTICASONE/SALMETEROL 115-21 MCG INHALER 1 PUFF 2 PUFF INHALATION ×2 (08:55→20:39)
[2024-11-16] MEDS: guaiFENesin/DEXTROMETHORPHAN 10 ML UDC PO ×3 (09:25→22:52)
[2024-11-16] MEDS: MIDODRINE HCL 2.5 MG TABLET 5 MG PO ×3 (09:26→17:21)
[2024-11-16] MEDS: APIXABAN 5 MG TABLET PO ×2 (09:27→20:20)
[2024-11-16] MEDS: SOTALOL HCL 80 MG TABLET PO ×2 (09:27→20:20)
[2024-11-16] MEDS: CLOPIDOGREL BISULFATE 75 MG TABLET PO (09:27)
[2024-11-16] MEDS: SODIUM CHLORIDE 1 GM TABLET PO ×2 (09:27→17:21)
[2024-11-16] MEDS: LORazepam (*CRX) 0.5 MG TABLET PO ×3 (09:27→17:21)
[2024-11-16] MEDS: EZETIMIBE 10 MG TABLET PO (09:27)
[2024-11-16] MEDS: NITROFURANTOIN MONOHYD MACROCR 100 MG CAP PO (09:28)
[2024-11-16] MEDS: DOCUSATE SODIUM 100 MG CAPSULE PO (09:39)
[2024-11-16] MEDS: HYDROcodone/acetaminophen (*CRX) 5-325 MG TABLET 1 TAB PO ×2 (09:39→17:44)
[2024-11-16] MEDS: MAGNESIUM SULF 2 GM/WATER 50ML 2 GM/50 ML BAG IVPB (12:08)
[2024-11-16 12:35] LABS: Glucose Point of Care 185 mg/dl (65-105)
--- NOTE | 2024-11-16 14:47 | WPDPROCEDUR ---
Procedures Central Line Placement Right IJ: Central Line Date: 11/05/24 Central Line Time: 08:45 Consent: I have discussed with the patient and/or surrogate, the non-emergent placement of a central venous catheter, including its clinical necessity/indication and associated potential risks and complications. The patient and/or surrogate understand(s) and acknowledge(s) the need to proceed with central venous catheter insertion as an important element of the patient's clinical management. Time Out Performed: Yes Patient Position: supine Patient placed on monitor/pulse ox: Yes Provider Prep: mask, sterile gown, sterile gloves, Max. sterile barrier precautions and hand hygiene with conventional soap/water or alcohol based hand rub Central line prep: 2% Chlorhexidine scrub Local anesthesia used: lidocaine 1% Amount of anesthesia used (ml): 3 Sterile US Technique with sterile gel/sterile probe covers: Yes Central line lumen inserted: triple Romanian: 12 Length (cm): 16 Depth of Insertion (cm): 16 Post Procedure: sutured in place, good blood return, all ports aspirated, flushed, capped, transparent dressing, hemostatic product, antimicrobial product, securement product and aseptic technique maintained throughout procedure Post procedure x-ray: tip of catheter in good position and no pneumothorax seen Patient tolerated procedure: well Complications: none
--- NOTE | 2024-11-16 15:55 | P.CONCA_ITS ---
Assessment and Plan Assessment and plan (1) Atypical chest pain: Code(s): R07.89 - Other chest pain Status: Acute Plan 1. PAF 2. Pleuritic chest pain 3. Suspect evolving changes of pericarditis 4. PAD 5. DM 6. COPD - Limited echo to assess LV function, pericardial effusion. She can be given short course of NSAIDS if needed. Consider further evaluation to r/o addisons ds - No invasive evaluation needed for now - Consider a stress test as an outpatient if atypical symptoms persist - Continue Sotalol at 80 mg PO BID - Continue anticoagulation; apixaban 5 mg PO BID - Continue plavix for DEO in lower extremities. Duration as per her vascular surgeon History of Present Illness History of Present Illness Consult date/time: 11/16/24 15:55 Reason For Visit: Chest Pain/Possible CHF Narrative: Rody Zaidi is a 63 year old lady known to have a history of AFib, bladder cancer, diabetes type 2, COPD, bipolar, and hypertension who was admitted with pleuritic chest pain. She was diagnosed with COVID on 11/04/2024, during her hospitalization she received dexamethasone but did not receive remdesivir. She was discharged but then came back with generalized body ache, pleuritic chest pain and dyspnea ECG showed ST-T changes in inf leads and precordial leads which were not present in previous EKG Negative troponin TTE (11/06/2024) on prior admission shows normal LV systolic function CT Chest suggestive of atypical infection BP has been found to be soft which was not so previously She was on Sotalol 120 mg BID for Afib which was decreased by the primary team to 80 mg PO BID due to prolonged QT Review of Systems 2 Review of Systems: 12 systems were reviewed and are negativ e except for as per HPI. All systems reviewed & are unremarkable except as noted in HPI and below Constitutional: Constitutional: Reports no additional constitutional complaints ENT: Reports system reviewed and no additional complaints, except as documented Cardiovascular: Cardiovascular: Reports no additional cardiovascular complaints Respiratory: Respiratory: Reports no additional respiratory complaints Gastrointestinal: Gastrointestinal: Reports no additional gastrointestinal complaints [facility] Past Medical History Medical History Colon polyps Hemorrhoid Paroxysmal atrial fibrillation History of diverticulitis Osteoarthritis Tobacco dependence Bladder cancer Hypertension Peripheral arterial disease Type 2 diabetes mellitus Gastroesophageal reflux disease Obstructive sleep apnea Cerebrovascular accident Chronic obstructive pulmonary disease Bipolar disorder Coronary artery disease Anxiety Hyperlipidemia Macular degeneration History of gastroesophageal reflux (GERD) History of diabetes mellitus History of COPD History of bladder cancer Surgical History Surgical History History of transurethral resection of bladder tumor (TURBT) History of vascular surgery Bilateral iliac stent. History of section History of cardiac catheterization History of left-sided carotid endarterectomy History of carpal tunnel release History of colonoscopy History of esophagogastroduodenoscopy (EGD) History of cholecystectomy Family History Family History (Updated 11/14/24 @ 22:18 by Tony Jimenez RN) Sibling Diabetes mellitus Family history of malignant neoplasm Heart disease Social History Social History Smoking packs per day: 2 Smoking cigarettes per day: 40.0 Years smoked: 30 Smoking pack-years: 60.00 Smoking status: Former smoker Second hand tobacco smoke exposure: No Smoking end date: 10/15/24 Additional smoking assessment comments: pt. was smoking 3 packs a day and has cut down to half a pack daily Alcohol intake: former Substance use: never Substance use type: marijuana Last use: 09/22/23 Do You Feel Safe in your Home?: Yes Lack of Transportation: No Lack of Food: Never True Current Housing: I Have Housing Concerned About Future Housing: No Difficulty Paying Gas/Electric Bills: No Difficulty Paying for Meds: No Currently Unemployed: No Education: High School Diploma/GED Difficulty w/ Childcare or Family Care: No Living arrangements: alone Spiritual care concerns: No Meds Home Medications and Allergies Home Medications ?Medication ?Instructions ?Recorded ?Confirmed ?Type losartan 100 mg tablet 100 mg PO DAILY 09/12/20 11/14/24 History clopidogrel 75 mg tablet 75 mg PO DAILY 05/20/21 11/14/24 History albuterol sulfate 90 mcg/actuation 2 puff inhalation QID PRN 07/29/23 11/14/24 Rx aerosol inhaler shortness of breath or wheezing #6.7 grams inhalational spacing device #1 ea 07/29/23 11/14/24 Rx (Aerochamber MV spacer) trazodone 50 mg tablet 50 mg PO HS PRN Insomnia 08/07/23 11/14/24 History apixaban 5 mg tablet (Eliquis) 5 mg PO Q12HR #60 tabs 08/11/23 11/14/24 Rx lorazepam 0.5 mg tablet 0.5 mg PO TID 08/26/23 11/14/24 History metformin 500 mg tablet 500 mg PO BID 08/26/23 11/14/24 History metoclopramide HCl 10 mg tablet 10 mg PO BID PRN nausea and 08/26/23 11/14/24 Rx (Reglan) vomiting #60 tabs ezetimibe 10 mg tablet 10 mg PO DAILY 09/23/23 11/14/24 History budesonide-formoterol HFA 160 See Rx Instructions .Route .COMPLEX 10/25/23 11/14/24 History mcg-4.5 mcg/actuation aerosol inhaler (Symbicort) cyclobenzaprine 10 mg tablet 10 mg PO PRN muscle spasm 10/25/23 11/14/24 History ergocalciferol (vitamin D2) 1,250 50,000 unit PO WEEKLY 10/25/23 11/14/24 History mcg (50,000 unit) capsule hydrocodone 5 mg-acetaminophen 325 1 tablet PO Q8H PRN Pain Rated 4-6 10/28/23 11/14/24 Rx mg tablet #15 tabs oxybutynin chloride 5 mg tablet 5 mg PO TID #90 tabs 10/28/23 11/14/24 Rx Zyrtec 1 tab-cap PO DAILY 03/02/24 11/14/24 History cromolyn 4 % eye drops 1 drp EACH EYE DAILY 03/02/24 11/14/24 History evolocumab 140 mg/mL subcutaneous 140 mg subcut MONTHLY 03/02/24 11/14/24 History pen injector (Latha Lau) fluticasone propionate 50 1 spray intranasal DAILY 03/02/24 11/14/24 History mcg/actuation nasal spray,suspension dexlansoprazole 30 mg See Rx Instructions .Route 08/24/24 11/14/24 Rx capsule,biphase delayed release .COMPLEX #30 caps hydrocortisone 2.5 % topical cream 1 applic RECTAL DAILY PRN 10/02/24 11/14/24 Rx with perineal applicator hemorrhoids #30 grams albuterol sulfate 2.5 mg/3 mL 2.5 mg inhalation Q6H PRN 11/05/24 11/14/24 History (0.083 %) solution for nebulization shortness of breath or wheezing albuterol sulfate 90 mcg/actuation 2 puff inhalation Q6H PRN 11/05/24 11/14/24 History aerosol inhaler shortness of breath or wheezing fenofibrate 120 mg tablet 120 mg PO DAILY 11/05/24 11/14/24 History fluoxetine 40 mg capsule 40 mg PO QPM 11/05/24 11/14/24 History montelukast 10 mg tablet 10 mg PO QPM 11/05/24 11/14/24 History sotalol 120 mg tablet 120 mg PO Q12H 11/05/24 11/14/24 History magnesium oxide 400 mg (241.3 mg 400 mg PO DAILY #7 tabs 11/10/24 11/14/24 Rx magnesium) tablet nitrofurantoin 100 mg PO Q12HR #17 caps 11/10/24 11/14/24 Rx monohydrate/macrocrystals 100 mg capsule (Macrobid) ondansetron HCl 4 mg tablet 4 mg PO Q8H #10 tabs 11/10/24 11/14/24 Rx sodium chloride 1,000 mg soluble 1,000 mg PO BID #30 tabs 11/10/24 11/14/24 Rx tablet Allergies Allergy/AdvReac Type Severity Reaction Status Date / Time haloperidol Allergy Unknown Other Verified 11/07/24 14:05 risperidone Allergy Unknown MY MOUTH Verified 11/07/24 14:05 TIGHTENS UP -TD simvastatin Allergy Unknown Other Verified 11/07/24 14:05 [id number] Reductase Allergy Other Verified 11/07/24 14:05 Inhibitor codeine AdvReac Unknown NAUSEA AND Verified 11/07/24 14:05 VOMITING triazolam AdvReac Unknown N/V Verified 11/07/24 14:05 Wasp Allergy Unknown WASP Uncoded 11/07/24 14:05 STING- CLOSES MY THROAT Vital Signs Vital Signs - 24 hr 11/15/24 16:00 11/15/24 16:00 11/15/24 18:00 Temperature Pulse Rate 57 L 85 Respiratory Rate Blood Pressure Pulse Oximetry Oxygen Delivery Room Air 11/15/24 20:00 11/15/24 20:00 11/15/24 20:20 Temperature Pulse Rate 90 Respiratory Rate 18 Blood Pressure Pulse Oximetry Oxygen Delivery Room Air 11/15/24 20:42 11/15/24 21:27 11/15/24 22:00 Temperature 36.6 C Pulse Rate 92 96 91 Respiratory Rate 18 Blood Pressure 120/77 Pulse Oximetry 98 Oxygen Delivery 11/15/24 23:59 11/16/24 00:00 11/16/24 00:00 Temperature 36.6 C Pulse Rate 82 75 Respiratory Rate 18 Blood Pressure 128/72 Pulse Oximetry 98 Oxygen Delivery Room Air 11/16/24 02:00 11/16/24 04:00 11/16/24 04:00 Temperature Pulse Rate 87 63 Respiratory Rate Blood Pressure Pulse Oximetry Oxygen Delivery Room Air 11/16/24 04:05 11/16/24 06:00 11/16/24 07:45 Temperature 36.6 C 36.9 C Pulse Rate 71 71 71 Respiratory Rate 18 20 Blood Pressure 122/64 110/66 Pulse Oximetry 98 100 Oxygen Delivery 11/16/24 08:00 11/16/24 08:00 11/16/24 08:55 Temperature Pulse Rate 72 Respiratory Rate 18 Blood Pressure Pulse Oximetry Oxygen Delivery Room Air 11/16/24 09:27 11/16/24 10:00 11/16/24 11:50 Temperature 36.7 C Pulse Rate 72 72 62 Respiratory Rate 20 Blood Pressure 118/76 Pulse Oximetry 100 Oxygen Delivery 11/16/24 12:00 11/16/24 12:00 11/16/24 14:00 Temperature Pulse Rate 72 68 Respiratory Rate Blood Pressure Pulse Oximetry Oxygen Delivery Room Air 11/16/24 15:47 Temperature 36.8 C Pulse Rate 72 Respiratory Rate 20 Blood Pressure 120/58 L Pulse Oximetry 100 Oxygen Delivery Exam 2 Narrative: AF 97.8 101/60 91 18 99% ra Gen - NARD Chest - CTA bilaterally, nml RR CV - RRR S1/S2. Tele showing PACs but mostly sinus Abd - Soft, NT/ND, Positive BS Ext - No pedal edema. 2+ DP pulses Neuro - Alert and oriented. Nonfocal exam. Psych - Nml mood and affect Skin - Warm and dry Results Labs and Meds 11/16/24 04:33 11/17/24 04:39 Lab results: CBC 11/16/24 Range/Units 04:33 WBC 6.2 (4.5-10.0) K/mm3 RBC 3.31 L (4.2-5.4) M/mm3 Hgb 9.4 L (12.0-15.0) g/dL Hct 28.2 L (37.0-47.0) % Plt Count 186 (150-375) k/mm3 Comprehensive Metabolic Panel 11/16/24 Range/Units 04:33 Sodium 132 L (137-145) mmol/L Potassium 3.6 (3.4-5.0) mmol/L Chloride 106 (98-107) mmol/L Carbon Dioxide 24 (22-30) mmol/L BUN 17 (7-17) mg/dL Creatinine 0.80 (0.7-1.0) mg/dL Glucose 116 H (65-110) mg/dL Calcium 8.2 L (8.4-10.2) mg/dL Albumin 3.2 L (3.5-5.1) g/dL Intake and Output 11/15/24 11/16/24 11/16/24 23:59 07:59 15:59 Intake Total 240 400 480 Output Total 600 Balance 240 -200 480 Intake: Oral 240 400 480 Output: Urine 600 Patient Weight 11/16/24 23:59 Weight 74.5 kg
[2024-11-16 15:57] LABS: Glucose Point of Care 122 mg/dl (65-105)
--- NOTE | 2024-11-16 19:07 | P.PNIM_ITS ---
Progress Note: A&P Assessment and Plan (1) Chest pain: Code(s): R07.9 - Chest pain, unspecified Status: Acute Assessment and Plan: Patient presents with chest pain. Troponin negative x3. EKG showing AFib, ST de viation and moderated T wave changes but no change from 10 days ago. CTA shows no PE but does show pulmonary opacities suggestive of atypical viral infection. Aspirin 324 x 1 and Plavix continued. Suspected chest pain related to pulmonary disease. But repeat EKG showing diffuse T wave changes. Consider underlying ischemia or pericarditis. Cards consult. Consider repeat Echo. Consider ischemic evaluation. (2) COVID-19: Code(s): U07.1 - COVID-19 Status: Acute Assessment and Plan: Patient was positive for COVID on 11/04 and was noted to be positive again this admission. Influenza and RSV negative. Imaging as above BCx NGTD. Abx on hold. No O2 requirement. Continue supportive care. Stop isolation. (3) Hypotension: Code(s): I95.9 - Hypotension, unspecified Status: Acute Assessment and Plan: BP dropped to 81/66 in ED. A fluid bolus and albumin given with good response. She was on losartan and sotalol on admission. Losartan held. Sotalol continued but was initially held due to soft BP. Midodrine added and was able to resume lower dose sotalol. EKG today showing QTc 430 Follow (4) Hyponatremia: Code(s): E87.1 - Hypo-osmolality and hyponatremia Status: Acute Assessment and Plan: Patient with hyponatremia last admission and was discharged on NaCl 1gm bid. Also discharged on her home Prozac. On admission, Na 128. She was treated with IV fluids with improvement. NaCl tabs resumed. Resumed prozac at lower dose with plans to wean off. Continue to monitor (5) Elevated brain natriuretic peptide (BNP) level: Code(s): R79.89 - Other specified abnormal findings of blood chemistry Status: Acute Assessment and Plan: BNP 7120. Imaging as above. Patient received IV fluids for HoTN. No history of CHF. Echo from 11/06/24 reviewed. No need to repeat Echo. Repeat CXR showing clear lungs. (6) Atrial fibrillation: Code(s): I48.91 - Unspecified atrial fibrillation Status: Acute Assessment and Plan: Patient with pAFib. She was rate controlled but now in sinus rhythm. Continue Sotalol at lower dose as tolerated. Continue Eliquis. Cardiology consulted. (7) Type 2 diabetes mellitus: Code(s): E11.9 - Type 2 diabetes mellitus without complications Status: Acute Assessment and Plan: A1c 6.5. The patient's blood glucose was reviewed on 11/16 Glucose remains well controlled. Continue AccuCheks covering with sliding scale. Hypoglycemia protocol available as needed. Continue to monitor Plan Pyelonephritis - Patient was hospitalized 11/05-11/10 for sepsis, pyelonephritis and bacteremia from relatively trejo-sensitive EColi. Patient initially treated with Rocephin x 4 days then Macrobid for 2 days. Repeat BCx negative. Home with macrobid BID for 17 more doses (through 11/18/24). BCx (11/14) drawn this admission remain negative. No UA collected. WBC elevated at 16K but now normal. Will change to Augmentin to finish the course. DVT prophylaxis -Price Code status -full Subjective Date/time seen: 11/16/24 19:07 Interval history: 63yo female with DM, COPD and hx of bladder CA here for CP and SOB. She was recently discharged from [place] on 11/10 for hyponatremia, COVID, AFIB/RVR, JAYLEN and sepsis from pyelonephritis. Slept okay. Walking to the BR now. Stil having mild chest pain. SOB better. Eating better Exam Narrative: AF 98.3 120/58 81 20 100% ra Gen - NARD Chest - scattered rhonchi, nml RR CV - RRR S1/S2. Tele showing sinus Abd - Soft, NT/ND, Positive BS Ext - No pedal edema Psych - Nml mood and affect Skin - Warm and dry Objective Data Vital Signs Vital Signs: Vital Signs - 24 hr 11/15/24 20:00 11/15/24 20:00 11/15/24 20:20 Temperature Pulse Rate 90 Respiratory Rate 18 Blood Pressure Pulse Oximetry Oxygen Delivery Room Air 11/15/24 20:42 11/15/24 21:27 11/15/24 22:00 Temperature 97.8 F Pulse Rate 92 96 91 Respiratory Rate 18 Blood Pressure 120/77 Pulse Oximetry 98 Oxygen Delivery 11/15/24 23:59 11/16/24 00:00 11/16/24 00:00 Temperature 97.8 F Pulse Rate 82 75 Respiratory Rate 18 Blood Pressure 128/72 Pulse Oximetry 98 Oxygen Delivery Room Air 11/16/24 02:00 11/16/24 04:00 11/16/24 04:00 Temperature Pulse Rate 87 63 Respiratory Rate Blood Pressure Pulse Oximetry Oxygen Delivery Room Air 11/16/24 04:05 11/16/24 06:00 11/16/24 07:45 Temperature 97.8 F 98.4 F Pulse Rate 71 71 71 Respiratory Rate 18 20 Blood Pressure 122/64 110/66 Pulse Oximetry 98 100 Oxygen Delivery 11/16/24 08:00 11/16/24 08:00 11/16/24 08:55 Temperature Pulse Rate 72 Respiratory Rate 18 Blood Pressure Pulse Oximetry Oxygen Delivery Room Air 11/16/24 09:27 11/16/24 10:00 11/16/24 11:50 Temperature 98.0 F Pulse Rate 72 72 62 Respiratory Rate 20 Blood Pressure 118/76 Pulse Oximetry 100 Oxygen Delivery 11/16/24 12:00 11/16/24 12:00 11/16/24 14:00 Temperature Pulse Rate 72 68 Respiratory Rate Blood Pressure Pulse Oximetry Oxygen Delivery Room Air 11/16/24 15:47 11/16/24 16:00 11/16/24 16:00 Temperature 98.3 F Pulse Rate 72 70 Respiratory Rate 20 Blood Pressure 120/58 L Pulse Oximetry 100 Oxygen Delivery Room Air 11/16/24 18:00 Temperature Pulse Rate 81 Respiratory Rate Blood Pressure Pulse Oximetry Oxygen Delivery Intake/Output Intake/Output: Intake & Output 11/13/24 11/14/24 11/15/24 11/16/24 23:59 23:59 23:59 23:59 Intake Total 750 1560 1120 Output Total 400 600 Balance 750 1160 520 Meds/Results Medications: Active Medications Generic Name Dose Route Start Last Admin Trade Name Freq PRN Reason Stop Dose Admin Acetaminophen 650 mg 11/14/24 14:59 11/16/24 03:14 Acetaminophen 325 Mg Tablet PO 650 mg Q4H PRN Administration Mild Pain (1-3) or Fever Hydrocodone Bitart/Acetaminophen 1 tab 11/14/24 21:37 11/16/24 17:44 Hydrocodone/Acetaminophen (*Crx) 5-325 Mg Tablet PO 1 tab Q8H PRN Administration Pain Rated 4-6 Albuterol 2 puff 11/15/24 16:46 11/15/24 16:50 Albuterol Sulfate (*Sp) Inhaler INHALATION 2 puff Q6HRT PRN Administration Shortness Of Breath Or Wheezing Apixaban 5 mg 11/15/24 09:00 11/16/24 09:27 Apixaban 5 Mg Tablet PO 5 mg Q12HR LANCE Administration Benzocaine 1 lozenge 11/15/24 18:05 11/15/24 18:37 Benzocaine/Menthol (*Bkc) 18 Ea Lozenge PO 1 lozenge PRN PRN Administration Sore Throat Clopidogrel Bisulfate 75 mg 11/15/24 09:00 11/16/24 09:27 Clopidogrel Bisulfate 75 Mg Tablet PO 75 mg DAILY LANCE Administration Dextrose 12.5 gm 11/15/24 01:54 Dextrose 50% 25 Gm/50 Ml Syringe IV PUSH PRN PRN Hypoglycemia Protocol Docusate Sodium 100 mg 11/15/24 09:00 11/16/24 09:39 Docusate Sodium 100 Mg Capsule PO 100 mg DAILY LANCE Administration Ezetimibe 10 mg 11/15/24 09:00 11/16/24 09:27 Ezetimibe 10 Mg Tablet PO 10 mg DAILY LANCE Administration Fluoxetine HCl 20 mg 11/15/24 18:00 11/16/24 17:22 Fluoxetine Hcl 20 Mg Capsule PO Not Given QPM LANCE Glucagon 1 mg 11/15/24 01:54 Glucagon For Inj 1 Mg Vial IM PRN PRN Hypoglycemia Protocol Glucose 15 gm 11/15/24 01:54 Glucose Oral Gel 15 Gm Of Glucse In 37.5 Gm Tube PO PRN PRN Hypoglycemia Protocol Guaifenesin/Dextromethorphan 10 ml 11/15/24 02:00 11/16/24 17:21 Guaifenesin/Dextromethorphan 10 Ml Udc PO 10 ml Q4H LANCE Administration Dextrose 1,000 mls @ 100 mls/hr 11/15/24 01:54 Dextrose 5% 1,000 Ml IVPB PRN PRN Hypoglycemia Protocol Insulin Aspart 3 - 6 units 11/15/24 08:00 11/16/24 17:18 Insulin Aspart (*Bkc) 100 Units/Ml SUB-Q Not Given TIDWM LANCE Protocol Insulin Aspart 1 - 3 units 11/15/24 21:00 11/15/24 20:45 Insulin Aspart (*Bkc) 100 Units/Ml SUB-Q Not Given HS LANCE Protocol Lorazepam 0.5 mg 11/15/24 09:00 11/16/24 17:21 Lorazepam (*Crx) 0.5 Mg Tablet PO 0.5 mg TID LANCE Administration Midodrine 5 mg 11/15/24 17:00 11/16/24 17:21 Midodrine Hcl 2.5 Mg Tablet PO 5 mg TID LANCE Administration Miscellaneous Information 0 each 11/14/24 00:01 11/16/24 02:12 Cromolyn 4% Eye Drops Nonform Can Pt Bring From Home? XX 12/14/24 00:00 Not Given CLARIFY LANCE Miscellaneous Information 0 each 11/15/24 00:01 11/16/24 02:12 Fenofibrate 120mg Nonform Can Pt Bring From Home? XX 12/15/24 00:00 Not Given CLARIFY LANCE Nitrofurantoin Macrocrystals 100 mg 11/15/24 09:00 11/16/24 09:28 Nitrofurantoin Monohyd Macrocr 100 Mg Cap PO 100 mg Q12HR LANCE Administration Non-Formulary Medication 1 drop 11/15/24 09:00 Cromolyn EACH EYE 12/15/24 08:59 DAILY [facility] Non-Formulary Medication 120 mg 11/15/24 09:00 Fenofibrate PO 12/15/24 08:59 DAILY [facility] Oxybutynin Chloride 5 mg 11/15/24 09:00 11/16/24 17:22 Oxybutynin Chloride 5 Mg Tablet PO Not Given TID LANCE Perflutren Lipid Microsphere 0 ml 11/14/24 14:59 Perflutren Lipid Microspheres 1.5 Ml Vial Diluted To 10 Ml Total Volume IV PUSH 11/17/24 15:00 ONCE PRN adequate visualization Protocol Fluticasone/Salmeterol 2 puff 11/15/24 08:00 11/16/24 08:55 Fluticasone/Salmeterol 115-21 Mcg Inhaler 1 Puff INHALATION 2 puff Q12HRT LANCE Administration Sodium Chloride 1 gm 11/15/24 09:00 11/16/24 17:21 Sodium Chloride 1 Gm Tablet PO 1 gm BID LANCE Administration Sotalol HCl 80 mg 11/15/24 21:00 11/16/24 09:27 Sotalol Hcl 80 Mg Tablet PO 80 mg Q12HR LANCE Administration Radiology Results: ITS Impressions Chest CTA 11/14/24 14:35 IMPRESSION: No CT evidence of acute pulmonary embolus. Pulmonary opacities suggestive of atypical/viral infection Chest X-Ray 11/16/24 06:32 Impression: Clear lungs. Labs Labs: Laboratory Results - last 24 hr 11/15/24 11/16/24 11/16/24 20:08 04:33 07:40 WBC 6.2 RBC 3.31 L Hgb 9.4 L Hct 28.2 L MCV 85.2 MCH 28.4 MCHC 33.3 RDW 13.6 Plt Count 186 MPV 11.3 H Sodium 132 L Potassium 3.6 Chloride 106 Carbon Dioxide 24 Anion Gap 2 L BUN 17 Creatinine 0.80 Estim Creat Clear Calc 61 Estimated GFR > 60 Glucose 116 H POC Capillary Glucose 158 H 132 H Calcium 8.2 L Phosphorus 3.4 Magnesium 1.5 L Albumin 3.2 L 11/16/24 11/16/24 11:41 15:39 WBC RBC Hgb Hct MCV MCH MCHC RDW Plt Count MPV Sodium Potassium Chloride Carbon Dioxide Anion Gap BUN Creatinine Estim Creat Clear Calc Estimated GFR Glucose POC Capillary Glucose 185 H 122 H Calcium Phosphorus Magnesium Albumin
[2024-11-16] MEDS: AMOXICILLIN/CLAVULANATE K 875-125 MG TAB 1 TABLET PO (20:19)
[2024-11-16 20:32] LABS: Glucose Point of Care 123 mg/dl (65-105)
[2024-11-17] VITALS (19 sets, daily range): BP systolic 88–137; BP diastolic 61–79; PULSE 58–586; RESP 18–24; TEMP 36.8–37.2; O2SAT 97–100
[2024-11-17] MEDS: guaiFENesin/DEXTROMETHORPHAN 10 ML UDC PO ×4 (05:43→22:33)
[2024-11-17 05:45] LABS: Anion Gap 0 mmol/L (4-12); Blood Urea Nitrogen 13 mg/dL (7-17); Calcium 8.2 mg/dL (8.4-10.2); Carbon Dioxide 26 mmol/L (22-30); Chloride 108 mmol/L (98-107); Estimated CRCL calculation 71 ml/min; Estimated Glomerular Filt Rate > 60; Glucose 118 mg/dL (65-110); Magnesium 1.8 mg/dL (1.6-2.3); Potassium 3.6 mmol/L (3.4-5.0); Sodium 134 mmol/L (137-145)
[2024-11-17] MEDS: ACETAMINOPHEN 325 MG TABLET 650 MG PO (05:46)
[2024-11-17] MEDS: FLUTICASONE/SALMETEROL 115-21 MCG INHALER 1 PUFF 2 PUFF INHALATION ×2 (07:27→21:32)
[2024-11-17] MEDS: ALBUTEROL SULFATE (*SP) INHALER 2 PUFF INHALATION ×2 (07:32→21:32)
[2024-11-17 08:13] LABS: Glucose Point of Care 129 mg/dl (65-105)
[2024-11-17] MEDS: EZETIMIBE 10 MG TABLET PO (08:35)
[2024-11-17] MEDS: MIDODRINE HCL 2.5 MG TABLET 5 MG PO ×3 (08:35→17:40)
[2024-11-17] MEDS: HYDROcodone/acetaminophen (*CRX) 5-325 MG TABLET 1 TAB PO ×2 (08:35→17:44)
[2024-11-17] MEDS: APIXABAN 5 MG TABLET PO ×2 (08:35→20:21)
[2024-11-17] MEDS: SODIUM CHLORIDE 1 GM TABLET PO ×2 (08:35→17:41)
[2024-11-17] MEDS: CLOPIDOGREL BISULFATE 75 MG TABLET PO (08:35)
[2024-11-17] MEDS: LORazepam (*CRX) 0.5 MG TABLET PO ×3 (08:36→17:40)
[2024-11-17] MEDS: DOCUSATE SODIUM 100 MG CAPSULE PO (08:36)
[2024-11-17] MEDS: SOTALOL HCL 80 MG TABLET PO ×2 (08:36→20:21)
[2024-11-17] MEDS: AMOXICILLIN/CLAVULANATE K 875-125 MG TAB 1 TABLET PO ×2 (08:36→17:40)
[2024-11-17 11:46] LABS: Glucose Point of Care 128 mg/dl (65-105)
[2024-11-17 15:50] LABS: Glucose Point of Care 127 mg/dl (65-105)
--- NOTE | 2024-11-17 15:59 | P.PNIM_ITS ---
Progress Note: A&P Assessment and Plan (1) Chest pain: Code(s): R07.9 - Chest pain, unspecified Status: Acute Assessment and Plan: Patient presents with chest pain. Troponin negative x3. EKG showing AFib, ST de viation and moderated T wave changes but no change from 10 days ago. CTA shows no PE but does show pulmonary opacities suggestive of atypical viral infection. Aspirin 324 x 1 and Plavix continued. Suspected chest pain related to pulmonary disease. But repeat EKG showing diffuse T wave changes. Consider underlying ischemia or pericarditis. Cards consulted and appreciate their input; felt patient with pericarditis. Repeat Echo ordered. Consider ischemic evaluation as outpatient. Defer to Cardiology about NSAID use given that she is on Eliquis. Will await Echo. (2) COVID-19: Code(s): U07.1 - COVID-19 Status: Acute Assessment and Plan: Patient was positive for COVID on 11/04 and was noted to be positive again this admission. Influenza and RSV negative. Imaging as above BCx NGTD. Abx on hold. No O2 requirement. Continue supportive care. (3) Hypotension: Code(s): I95.9 - Hypotension, unspecified Status: Acute Assessment and Plan: BP dropped to 81/66 in ED. A fluid bolus and albumin given with good response. She was on losartan and sotalol on admission. Losartan held. Sotalol initially held due to soft BP Midodrine added and was able to resume lower dose sotalol. EKG showing QTc 430 BP still soft this morning (88/61) but overall BP better. Follow (4) Hyponatremia: Code(s): E87.1 - Hypo-osmolality and hyponatremia Status: Acute Assessment and Plan: Patient with hyponatremia last admission and was discharged on NaCl 1gm bid. Also discharged on her home Prozac. On admission, Na 128. She was treated with IV fluids with improvement. NaCl tabs resumed. Resumed prozac at lower dose. Mood stable and Na 134. Continue to monitor (5) Elevated brain natriuretic peptide (BNP) level: Code(s): R79.89 - Other specified abnormal findings of blood chemistry Status: Acute Assessment and Plan: BNP 7120. Imaging as above. Patient received IV fluids for HoTN. No history of CHF. Echo from 11/06/24 reviewed. Repeat CXR showing clear lungs. (6) Atrial fibrillation: Code(s): I48.91 - Unspecified atrial fibrillation Status: Acute Assessment and Plan: Patient with pAFib. She was rate controlled but now in sinus rhythm. Continue Sotalol at lower dose as tolerated. Continue Eliquis. Cardiology following (7) Type 2 diabetes mellitus: Code(s): E11.9 - Type 2 diabetes mellitus without complications Status: Acute Assessment and Plan: A1c 6.5. The patient's blood glucose was reviewed on 11/17 Glucose remains well controlled. Continue AccuCheks covering with sliding scale. Hypoglycemia protocol available as needed. Continue to monitor Plan Pyelonephritis - Patient was hospitalized 11/05-11/10 for sepsis, pyelonephritis and bacteremia from relatively trejo-sensitive EColi. Patient initially treated with Rocephin x 4 days then Macrobid for 2 days. Repeat BCx negative. Home with macrobid BID for 17 more doses (through 11/18/24). BCx (11/14) drawn this admission remain negative. No UA collected here. WBC elevated at 16K but now normal. Discussed with PharmD ID who recommended Augmentin Q8h for 7 days to finish the course. This was changed. DVT prophylaxis -Eliquis Code status -full Subjective Date/time seen: 11/17/24 15:59 Interval history: 63yo female with DM, COPD and hx of bladder CA here for CP and SOB. She was recently discharged from [place] on 11/10 for hyponatremia, COVID, AFIB/RVR, JAYLEN and sepsis from pyelonephritis. SOB better. No CP. No n/v. Eating better. Exam Narrative: AF 98.7 137/79 73 20 98% ra Gen - NARD Chest - bibasilar rhonchi o/w clear CV - RRR S1/S2. Tele showing no significant dysrhythmias Abd - Soft, NT/ND, Positive BS Ext - No pedal edema Psych - Nml mood and affect Skin - Warm and dry Objective Data Vital Signs Vital Signs: Vital Signs - 24 hr 11/16/24 16:00 11/16/24 16:00 11/16/24 18:00 Temperature Pulse Rate 70 81 Respiratory Rate Blood Pressure Pulse Oximetry Oxygen Delivery Room Air 11/16/24 20:00 11/16/24 20:00 11/16/24 20:00 Temperature 98.4 F Pulse Rate 82 73 Respiratory Rate 16 Blood Pressure 104/69 Pulse Oximetry 100 Oxygen Delivery Room Air 11/16/24 20:20 11/16/24 22:00 11/16/24 23:44 Temperature 97.9 F Pulse Rate 73 67 73 Respiratory Rate 22 H Blood Pressure 109/64 Pulse Oximetry 97 Oxygen Delivery 11/17/24 00:00 11/17/24 00:00 11/17/24 02:00 Temperature Pulse Rate 69 73 Respiratory Rate Blood Pressure Pulse Oximetry Oxygen Delivery Room Air 11/17/24 03:28 11/17/24 04:00 11/17/24 04:00 Temperature 98.9 F Pulse Rate 69 67 Respiratory Rate 24 H Blood Pressure 88/61 L Pulse Oximetry 97 Oxygen Delivery Room Air 11/17/24 06:00 11/17/24 07:32 11/17/24 08:00 Temperature Pulse Rate 74 76 67 Respiratory Rate 18 20 Blood Pressure Pulse Oximetry 99 Oxygen Delivery Room Air 11/17/24 08:00 11/17/24 08:30 11/17/24 08:36 Temperature 98.3 F Pulse Rate 65 68 67 Respiratory Rate 20 Blood Pressure 109/67 Pulse Oximetry 99 Oxygen Delivery 11/17/24 10:00 11/17/24 11:54 11/17/24 12:00 Temperature 98.2 F Pulse Rate 63 58 L 64 Respiratory Rate 18 Blood Pressure 131/72 Pulse Oximetry 100 Oxygen Delivery 11/17/24 12:00 11/17/24 14:00 11/17/24 15:30 Temperature 98.7 F Pulse Rate 586 H 70 73 Respiratory Rate 18 20 Blood Pressure 137/79 Pulse Oximetry 100 98 Oxygen Delivery Room Air Intake/Output Intake/Output: Intake & Output 11/14/24 11/15/24 11/16/24 11/17/24 23:59 23:59 23:59 23:59 Intake Total 750 1560 1480 1720 Output Total 400 600 Balance 750 9099 984 6972 Meds/Results Medications: Active Medications Generic Name Dose Route Start Last Admin Trade Name Freq PRN Reason Stop Dose Admin Acetaminophen 650 mg 11/14/24 14:59 11/17/24 05:46 Acetaminophen 325 Mg Tablet PO 650 mg Q4H PRN Administration Mild Pain (1-3) or Fever Hydrocodone Bitart/Acetaminophen 1 tab 11/14/24 21:37 11/17/24 08:35 Hydrocodone/Acetaminophen (*Crx) 5-325 Mg Tablet PO 1 tab Q8H PRN Administration Pain Rated 4-6 Albuterol 2 puff 11/15/24 16:46 11/17/24 07:32 Albuterol Sulfate (*Sp) Inhaler INHALATION 2 puff Q6HRT PRN Administration Shortness Of Breath Or Wheezing Amoxicillin/Clavulanate Potassium 1 tablet 11/17/24 17:00 Amoxicillin/Clavulanate K 875-125 Mg Tab PO 11/23/24 17:01 Q8H LANCE Apixaban 5 mg 11/15/24 09:00 11/17/24 08:35 Apixaban 5 Mg Tablet PO 5 mg Q12HR LANCE Administration Benzocaine 1 lozenge 11/15/24 18:05 11/15/24 18:37 Benzocaine/Menthol (*Bkc) 18 Ea Lozenge PO 1 lozenge PRN PRN Administration Sore Throat Clopidogrel Bisulfate 75 mg 11/15/24 09:00 11/17/24 08:35 Clopidogrel Bisulfate 75 Mg Tablet PO 75 mg DAILY LANCE Administration Dextrose 12.5 gm 11/15/24 01:54 Dextrose 50% 25 Gm/50 Ml Syringe IV PUSH PRN PRN Hypoglycemia Protocol Docusate Sodium 100 mg 11/15/24 09:00 11/17/24 08:36 Docusate Sodium 100 Mg Capsule PO 100 mg DAILY LANCE Administration Ezetimibe 10 mg 11/15/24 09:00 11/17/24 08:35 Ezetimibe 10 Mg Tablet PO 10 mg DAILY LANCE Administration Fluoxetine HCl 20 mg 11/15/24 18:00 11/16/24 17:22 Fluoxetine Hcl 20 Mg Capsule PO Not Given QPM LANCE Glucagon 1 mg 11/15/24 01:54 Glucagon For Inj 1 Mg Vial IM PRN PRN Hypoglycemia Protocol Glucose 15 gm 11/15/24 01:54 Glucose Oral Gel 15 Gm Of Glucse In 37.5 Gm Tube PO PRN PRN Hypoglycemia Protocol Guaifenesin/Dextromethorphan 10 ml 11/15/24 02:00 11/17/24 10:12 Guaifenesin/Dextromethorphan 10 Ml Udc PO 10 ml Q4H LANCE Administration Dextrose 1,000 mls @ 100 mls/hr 11/15/24 01:54 Dextrose 5% 1,000 Ml IVPB PRN PRN Hypoglycemia Protocol Insulin Aspart 3 - 6 units 11/15/24 08:00 11/17/24 12:00 Insulin Aspart (*Bkc) 100 Units/Ml SUB-Q Not Given TIDWM LANCE Protocol Insulin Aspart 1 - 3 units 11/15/24 21:00 11/16/24 22:51 Insulin Aspart (*Bkc) 100 Units/Ml SUB-Q Not Given HS LANCE Protocol Lorazepam 0.5 mg 11/15/24 09:00 11/17/24 12:14 Lorazepam (*Crx) 0.5 Mg Tablet PO 0.5 mg TID LANCE Administration Midodrine 5 mg 11/15/24 17:00 11/17/24 12:14 Midodrine Hcl 2.5 Mg Tablet PO 5 mg TID LNACE Administration Miscellaneous Information 0 each 11/14/24 00:01 11/17/24 02:18 Cromolyn 4% Eye Drops Nonform Can Pt Bring From Home? XX 12/14/24 00:00 Not Given CLARIFY LANCE Miscellaneous Information 0 each 11/15/24 00:01 11/17/24 02:18 Fenofibrate 120mg Nonform Can Pt Bring From Home? XX 12/15/24 00:00 Not Given CLARIFY LANCE Non-Formulary Medication 1 drop 11/15/24 09:00 Cromolyn EACH EYE 12/15/24 08:59 DAILY LANCE Non-Formulary Medication 120 mg 11/15/24 09:00 Fenofibrate PO 12/15/24 08:59 DAILY LANCE Oxybutynin Chloride 5 mg 11/15/24 09:00 11/17/24 08:38 Oxybutynin Chloride 5 Mg Tablet PO Not Given TID LANCE Perflutren Lipid Microsphere 0 ml 11/17/24 09:12 Perflutren Lipid Microspheres 1.5 Ml Vial Diluted To 10 Ml Total Volume IV PUSH 11/20/24 09:12 ONCE PRN adequate visualization Protocol Fluticasone/Salmeterol 2 puff 11/15/24 08:00 11/17/24 07:27 Fluticasone/Salmeterol 115-21 Mcg Inhaler 1 Puff INHALATION 2 puff Q12HRT LANCE Administration Sodium Chloride 1 gm 11/15/24 09:00 11/17/24 08:35 Sodium Chloride 1 Gm Tablet PO 1 gm BID LANCE Administration Sotalol HCl 80 mg 11/15/24 21:00 11/17/24 08:36 Sotalol Hcl 80 Mg Tablet PO 80 mg Q12HR LANCE Administration Radiology Results: ITS Impressions Chest CTA 11/14/24 14:35 IMPRESSION: No CT evidence of acute pulmonary embolus. Pulmonary opacities suggestive of atypical/viral infection Chest X-Ray 11/16/24 06:32 Impression: Clear lungs. Labs Labs: Laboratory Results - last 24 hr 11/16/24 11/17/24 11/17/24 20:28 04:39 07:34 Sodium 134 L Potassium 3.6 Chloride 108 H Carbon Dioxide 26 Anion Gap 0 L BUN 13 Creatinine 0.70 Estim Creat Clear Calc 71 Estimated GFR > 60 Glucose 118 H POC Capillary Glucose 123 H 129 H Calcium 8.2 L Magnesium 1.8 11/17/24 11/17/24 11:25 15:31 Sodium Potassium Chloride Carbon Dioxide Anion Gap BUN Creatinine Estim Creat Clear Calc Estimated GFR Glucose POC Capillary Glucose 128 H 127 H Calcium Magnesium
[2024-11-17] MEDS: FLUoxetine HCL 20 MG CAPSULE PO (17:42)
[2024-11-17 20:42] LABS: Glucose Point of Care 115 mg/dl (65-105)
[2024-11-18] VITALS (11 sets, daily range): BP systolic 101–130; BP diastolic 53–89; PULSE 60–97; RESP 16–22; TEMP 36.7–37.2; O2SAT 98–100
--- NOTE | 2024-11-18 | ECHO_ITS ---
Patient Info Name: Rody Zaidi Age: 63 years : 1960 Gender: Female Ht: 63 in Wt: 179 lbs BSA: 1.93 m2 HR: 90 bpm BP: 112 / 63 mmHg Technical Quality: Fair Exam Date: 11/18/2024 12:39 PM Exam Location: Echo Lab Patient Status: Inpatient Admit Date: 11/14/2024 Staff Ordering Physician: Jahaira Siu MD/musa) Cash Accounting Clerk: Davidson Oliver RDCS Attending Provider: Juan Centeno MD Referring Physician: Sherron SHEPARD; Exam Type: CA echo limited w contrast Study Info Indications - CHEST PAIN Limited two-dimensional transthoracic echocardiogram is performed with contrast. Contrast/Agitated Saline Contrast/Ag. Saline: Definity Amount: 2.00 ml Existing IV Access: Yes Summary 1. Limited Echo. 2. Left ventricular chamber dimension is normal. 3. Left ventricular systolic function is normal with an ejection fraction by Biplane Method of Discs of 76 %. 4. There is mildly increased left ventricular wall thickness. 5. Left ventricular septal wall motion is normal. 6. The left ventricular diastolic function is normal. 7. Right ventricular chamber dimension is normal. 8. Right ventricular systolic function is normal. Left Ventricle Left ventricular chamber dimension is normal. Left ventricular systolic function is normal with an ejection fraction by Biplane Method of Discs of 76 %. There is mildly increased left ventricular wall thickness. Left ventricular septal wall motion is normal. The left ventricular diastolic function is normal. Right Ventricle Right ventricular chamber dimension is normal. Right ventricular systolic function is normal. Left Atria Left atrial chamber dimension is enlarged. Right Atria Right atrial chamber dimension is normal. Aortic Valve There is no aortic valve regurgitation. Mitral Valve There is no mitral valve regurgitation. Pericardium/Pleural The pericardium appears normal. There is no pericardial effusion. Inferior Vena Cava Normal inferior vena cava with >50% collapse upon inspiration consistent with normal right atrial pressure, 3 mmHg. Aorta The aortic root size at the sinus of Valsalva is normal. The prox ascending aorta size is normal. Tricuspid Valve Name Value Normal Estimated PAP/RSVP RA Pressure 3 mmHg <=5 Ventricles Name Value Normal LV Dimensions 2D/MM IVS Diastolic Thickness (2D) 1.3 cm 0.6-1.0 LVID Diastole (2D) 4.3 cm 3.8-5.2 LVIW Diastolic Thickness (2D) 1.5 cm 0.6-0.9 LVID Systole (2D) 2.6 cm 2.2-3.5 LV Mass (2D Cubed) 229.57 g 67.00-162.00 LV Mass Index (2D Cubed) 119 g/m2 43-95 Relative Wall Thickness (2D) 0.70 LV Fractional Shortening/Ejection Fraction 2D/MM LV Fractional Shortening (2D) 38 % 27-45 LV EF (2D Teicholz) 68 % 54-74 LV Diastolic Volume (4C MOD) 58 ml LV EF (4C MOD) 68 % LV Diastolic Volume (2C MOD) 44 ml LV EF (2C MOD) 81 % LV Diastolic Volume (BP MOD) 52 ml 46-106 LV Diastolic Volume Index (BP MOD) 27 ml/m2 29-61 LV Systolic Volume (BP MOD) 12 ml 14-42 LV Systolic Volume Index (BP MOD) 6 ml/m2 8-24 LV EF (BP MOD) 76 % 54-74 LV Diastolic Length (4C) 7.4 cm LV Systolic Length (4C) 5.8 cm LV Stroke Volume (4C MOD) 39 ml Report Signatures
[2024-11-18] MEDS: AMOXICILLIN/CLAVULANATE K 875-125 MG TAB 1 TABLET PO ×2 (00:15→08:46)
[2024-11-18] MEDS: CALCIUM CARBONATE (TUMS) 500 MG (200 MG ELEMENTAL) PO (00:15)
[2024-11-18] MEDS: HYDROcodone/acetaminophen (*CRX) 5-325 MG TABLET 1 TAB PO ×2 (02:24→10:45)
[2024-11-18] MEDS: guaiFENesin/DEXTROMETHORPHAN 10 ML UDC PO (02:25)
[2024-11-18 07:59] LABS: Glucose Point of Care 118 mg/dl (65-105)
[2024-11-18] MEDS: SODIUM CHLORIDE 1 GM TABLET PO (08:45)
[2024-11-18] MEDS: APIXABAN 5 MG TABLET PO (08:45)
[2024-11-18] MEDS: MIDODRINE HCL 2.5 MG TABLET 5 MG PO ×2 (08:45→14:17)
[2024-11-18] MEDS: DOCUSATE SODIUM 100 MG CAPSULE PO (08:45)
[2024-11-18] MEDS: EZETIMIBE 10 MG TABLET PO (08:45)
[2024-11-18] MEDS: CLOPIDOGREL BISULFATE 75 MG TABLET PO (08:45)
[2024-11-18] MEDS: LORazepam (*CRX) 0.5 MG TABLET PO ×2 (08:46→14:17)
[2024-11-18] MEDS: SOTALOL HCL 80 MG TABLET PO (08:46)
[2024-11-18] MEDS: ALBUTEROL SULFATE (*SP) INHALER 2 PUFF INHALATION (08:58)
[2024-11-18] MEDS: FLUTICASONE/SALMETEROL 115-21 MCG INHALER 1 PUFF 2 PUFF INHALATION (08:59)
[2024-11-18] MEDS: PERFLUTREN LIPID MICROSPHERES 1.5 ML VIAL DILUTED TO 10 ML TOTAL VOLUME IV PUSH (12:55)
[2024-11-18 12:58] LABS: Glucose Point of Care 200 mg/dl (65-105)
--- NOTE | 2024-11-18 13:37 | IVDEFINITY ---
Prior to administration of IV Definity the patient was educated on the risks and benefits of the imaging enhancing agent including potential adverse side effects. The patient verbalized understanding. Allergies were verified. No exclusion criteria were identified and at least one of the following inclusion criteria were met: 1) physician request, 2) patient technically difficult to image (per the [place] [employer] guidelines of two or more segments not discernable within the apical view), or 3) questionable left ventricular function. ?
[2024-11-18] MEDS: ACETAMINOPHEN 325 MG TABLET 650 MG PO (14:16)
--- NOTE | 2024-11-18 15:25 | P.DS_ITS ---
DS: Admitting Diagnosis Discharge Date 11/18/24 Admitting Diagnosis Chest pain DS: Discharge Diagnosis Discharge Diagnosis (1) Chest pain: Code(s): R07.9 - Chest pain, unspecified Status: Acute (2) COVID-19: Code(s): U07.1 - COVID-19 Status: Acute (3) Hypotension: Code(s): I95.9 - Hypotension, unspecified Status: Acute (4) Hyponatremia: Code(s): E87.1 - Hypo-osmolality and hyponatremia Status: Acute (5) Elevated brain natriuretic peptide (BNP) level: Code(s): R79.89 - Other specified abnormal findings of blood chemistry Status: Acute (6) Atrial fibrillation: Code(s): I48.91 - Unspecified atrial fibrillation Status: Acute (7) Type 2 diabetes mellitus: Code(s): E11.9 - Type 2 diabetes mellitus without complications Status: Acute DS: Summary Hospital Course Reason for hospitalization: 63yo female with DM, COPD and hx of bladder CA here for CP and SOB. Please see H&P for details. Hospital Course: Patient presents with chest pain. Troponin negative x3. EKG showing AFib, ST deviation and moderated T wave changes but no change from 10 days ago. CTA shows no PE but does show pulmonary opacities suggestive of atypical viral infection. Aspirin 324 x 1 and Plavix continued. Suspected chest pain related to pulmonary disease. But repeat EKG showing diffuse T wave changes. Consider underlying ischemia or pericarditis. Cardiology consulted and appreciate their input; felt patient with possible pericarditis but no pleuritic chest pain and repeat limited Echo did not show any pericardial disease. Patient was positive for COVID on 11/04 and was noted to be positive again this admission. Influenza and RSV negative. BCx NGTD. Abx were held. No O2 requirement. treated with supportive care. BP dropped to 81/66 in ED. A fluid bolus and albumin given with good response. She was on losartan and sotalol on admission. Losartan held. Sotalol initially held due to soft BP. Midodrine added and was able to resume lower dose sotalol. EKG showing QTc 430. Cortisol was low at 1.1 but cortisol was elevated about 2 weeks ago at 46. Low cortisol level could be related to narcotics. Plan to repeat as outpatient. Patient with hyponatremia last admission and was discharged on NaCl 1gm bid. Also discharged on her home Prozac. On admission, Na 128. She was treated with IV fluids with improvement. NaCl tabs resumed. Resumed prozac at lower dose. Mood stable and Na 134. BNP 7120. Patient received IV fluids for HoTN. No history of CHF. Echo from 11/06/24 reviewed. Repeat CXR showing clear lungs. Patient with pAFib. She was rate controlled but now in sinus rhythm. Continue Sotalol at lower dose as tolerated. Continue Eliquis. Patient was hospitalized 11/05-11/10 for sepsis, pyelonephritis and bacteremia from relatively trejo-sensitive EColi. Patient initially treated with Rocephin x 4 days then Macrobid for 2 days. Repeat BCx negative. Home with macrobid BID for 17 more doses (through 11/18/24). BCx (11/14) drawn this admission remain negative. No UA collected here. WBC elevated at 16K but now normal. Discussed with PharmD ID who recommended Augmentin Q8h for 7 days to finish the course. Abx were changed. She overall did well and was able to be discharged on 11/18/24. Discussed with Cardiology. Status at Discharge Cognitive/behavioral status at discharge: stable Time Spent with Patient Time attestation: Total time spent providing and/or coordinating discharge services: 36 minutes Time spent: Greater than 30 minutes Exam Narrative: AF 98.6 120/89 78 20 100% ra Gen - NARD Chest - bibasilar rhonchi CV - RRR S1/S2. Tele showing NSR and 6b run NSVT Abd - Soft, NT/ND, Positive BS Ext - No pedal edema Psych - Nml mood and affect Skin - Warm and dry DS: Data Data Completed and Pending Labs on day of discharge: Labs from last 24 hours 11/18/24 11/18/24 11/18/24 11:18 07:30 04:42 POC Capillary Glucose 200 H 118 H Random Cortisol 1.10 11/17/24 11/17/24 20:35 15:31 POC Capillary Glucose 115 H 127 H Random Cortisol Preliminary micro results at discharge 11/14/24 13:15 Blood Culture - Preliminary Blood 11/14/24 12:02 Blood Culture - Preliminary Blood Discharge Plan Discharge Attending physician on discharge: Hima Aceves Consulting providers: Jahaira Siu Discharging Clinician: Hima Aceves Anticipated Discharge Date/Time: 11/18/24 15:39 Patient Disposition: Home, Self-Care Activity: as tolerated Diet: diabetic Discharge Instructions: Please check glucose before meals and before bed. Record and bring into your doctor for review. Check blood pressure 1 to 2 times a day. Record and bring into your doctor for review. Call your doctor if your blood pressure is greater than 180/110 or less than 90/45. Please complete your antibiotic course even if you are starting to feel well. Take precautions to avoid falls. Rise slowly from a lying or sitting position. Pause before standing or walking. Check daily morning weights after voiding. Call your doctor if you gain more than 3 lb in 2 days or 5 lb in 1 week. Contact your doctor or call 911 and come to the Emergency Room if you have lightheadedness with standing or other worrisome symptoms. Avoid NSAIDs (ibuprofen, naproxen, Aleve). Tylenol is safe to take. Follow-up with your primary care provider in 1-2 weeks. Please call for appointment. Follow-up with Clinical Study Manager in 2-3 weeks. Please call for an appointment. Thank you for using [facility] for your health care needs. Patient Instructions: Antibiotic Form, Apixaban (By mouth), Heart Failure (GEN) Patient Language: [place] Stand Alone Forms: General Discharge Information Follow-up/Referrals: Jahaira Siu MD [Physician] - Call for Appointment Andrey,Matti Parson MD [Primary Care Provider] - Call for Appointment Discharge Medications: New midodrine 2.5 mg Tablet 5 mg PO BID Qty: 60 0RF sotalol 80 mg Tablet 80 mg PO Q12HR Qty: 60 1RF amoxicillin-pot clavulanate 875-125 mg tablet 1 tablet PO Q8H Qty: 16 0RF Continued (DME) Aerochamber MV Spacer See Rx Instructions .Route Qty: 1 0RF Rx Instructions: As directed albuterol sulfate 90 mcg/actuation HFA aerosol inhaler 2 puff inhalation QID PRN (Reason: shortness of breath or wheezing) Qty: 6.7 0RF cromolyn 4 % drops 1 drp EACH EYE DAILY Repatha SureClick 140 mg/mL pen injector 140 mg SUBCUT MONTHLY Zyrtec 1 tab-cap PO DAILY fluticasone propionate 50 mcg/actuation [place],Suspension 1 spray INTRANASAL DAILY clopidogrel 75 mg tablet 75 mg PO DAILY hydrocortisone 2.5 % cream with perineal applicator 1 applic RECTAL DAILY PRN (Reason: hemorrhoids) Qty: 30 0RF lorazepam 0.5 mg tablet 0.5 mg PO TID metoclopramide HCl [Reglan] 10 mg tablet 10 mg PO BID PRN (Reason: nausea and vomiting) Qty: 60 11RF trazodone 50 mg tablet 50 mg PO HS PRN (Reason: Insomnia) Eliquis 5 mg Tablet 5 mg PO Q12HR Qty: 60 2RF ezetimibe 10 mg tablet 10 mg PO DAILY ergocalciferol (vitamin D2) 1,250 mcg (50,000 unit) capsule 50,000 unit PO WEEKLY Rx Instructions: takes weekly on Wednesday cyclobenzaprine 10 mg tablet 10 mg PO PRN budesonide-formoterol [Symbicort] 160-4.5 mcg/actuation HFA aerosol inhaler See Rx Instructions .ROUTE .COMPLEX Rx Instructions: 2 puff inhaled AM AND HS hydrocodone-acetaminophen 5-325 mg Tablet 1 tablet PO Q8H PRN (Reason: Pain Rated 4-6) Qty: 15 0RF oxybutynin chloride 5 mg Tablet 5 mg PO TID Qty: 90 0RF montelukast 10 mg tablet 10 mg PO QPM fenofibrate 120 mg tablet 120 mg PO DAILY albuterol sulfate 2.5 mg /3 mL (0.083 %) solution for nebulization 2.5 mg inhalation Q6H PRN (Reason: shortness of breath or wheezing) magnesium oxide 400 mg (241.3 mg magnesium) Tablet 400 mg PO DAILY Qty: 7 0RF sodium chloride 1,000 mg Tablet,Soluble 1,000 mg PO BID Qty: 30 0RF dexlansoprazole 30 mg capsule,biphase delayed releas See Rx Instructions .ROUTE .COMPLEX Qty: 30 11RF Dose Instruction: TAKE 1 CAPSULE BY MOUTH DAILY Rx Instructions: TAKE 1 CAPSULE BY MOUTH DAILY Changed fluoxetine 40 mg capsule 20 mg PO QPM Qty: 30 0RF ondansetron HCl 4 mg tablet 4 mg PO Q8H PRN (Reason: Nausea And Vomiting) Qty: 10 0RF Held metformin 500 mg tablet 500 mg PO BID Hold Instructions: HOLD - resume when okay with your doctor losartan 100 mg tablet 100 mg PO DAILY Hold Instructions: HOLD - resume when okay with your doctor Discontinued sotalol 120 mg tablet 120 mg PO Q12H albuterol sulfate 90 mcg/actuation HFA aerosol inhaler 2 puff INHALATION Q6H PRN (Reason: shortness of breath or wheezing) nitrofurantoin monohyd/m-cryst [Macrobid] 100 mg Capsule 100 mg PO Q12HR Qty: 17 0RF Other Ambulatory Orders: Cortisol Random (Routine) Timeframe: 1 Week Location: Determined by Patient Ordered By: Hima Aceves Date of admission: 11/14/24 14:59 Primary Care Provider: AlexMatti Admitting Provider: Juan Centeno Attending physician on admission: Juan Centeno Condition: Stable Hospitalist MIPS Heart Failure (Exclusion) Patient has history of Heart Transplant or Left Ventricular Assistive Device?: No IF YES, STOP HERE Heart Failure (Qualifier) Patient has current or prior documentation of LVEF less than or equal to 40%, or mod/servere depressed LVSF?: No IF NO, STOP HERE
[2024-11-18 16:23] LABS: Glucose Point of Care 136 mg/dl (65-105)
== END 2024-11-18 17:30 | disposition home or self-care (01) ==
LOC: ANHED 13:03 → ANHIMU 22:22
PROVIDERS: Internal Medicine Interventional Cardiology; Nurse Practitioner Gerontology; Student in an Organized Health Care Education/Training Program; Admitting Provider Internal Medicine; Emergency Provider Emergency Medicine; PCP Family Medicine; Visit Provider Internal Medicine
DX: U07.1 COVID-19 (principal); R07.89 Other chest pain; J44.9 Chronic obstructive pulmonary disease, unspecified; I48.0 Paroxysmal atrial fibrillation; R79.89 Other specified abnormal findings of blood chemistry; K21.9 Gastro-esophageal reflux disease without esophagitis; E11.51 Type 2 diabetes mellitus with diabetic peripheral angiopathy without gangrene; I95.9 Hypotension, unspecified; F31.9 Bipolar disorder, unspecified; I10 Essential (primary) hypertension; M19.90 Unspecified osteoarthritis, unspecified site; E78.5 Hyperlipidemia, unspecified; G47.33 Obstructive sleep apnea (adult) (pediatric); Z79.01 Long term (current) use of anticoagulants; Z79.51 Long term (current) use of inhaled steroids; Z79.84 Long term (current) use of oral hypoglycemic drugs; Z79.899 Other long term (current) drug therapy; Z86.73 Personal history of transient ischemic attack (TIA), and cerebral infarction without residual deficits; Z85.51 Personal history of malignant neoplasm of bladder; Z87.891 Personal history of nicotine dependence
CPT/HCPCS: 36415; 36600; 71045; 71275; 80048; 80053; 80069; 82533; 82805; 82948; 83605; 83690; 83735; 83880; 84484; 85018; 85025; 85027; 85610; 85730; 87040; 87637; 93005; 93308; 94640; 96361; 96365; 96366; 96367; 96374; 96375; 99285; A9270; C8924; G0378; G0379; J0612; J2405; J3475; J7040; P9047; Q9957; Q9967

== ENCOUNTER 2024-11-25 12:12 | Outpatient (CLI) | payer OTHER, SELFPAY ==
[2024-11-25 13:32] LABS: Cortisol Random 2.67 ug/dL
== END 2024-11-25 12:13 | disposition home or self-care (01) ==
PROVIDERS: PCP Family Medicine; Referring Provider Internal Medicine; Visit Provider Internal Medicine
DX: I95.9 Hypotension, unspecified (principal)
CPT/HCPCS: 36415; 82533

== ENCOUNTER 2024-12-01 08:20 | Observation (INO) | payer OTHER, SELFPAY ==
[2024-12-01] VITALS (11 sets, daily range): BP systolic 124–199; BP diastolic 63–107; PULSE 60–104; RESP 14–25; TEMP 36.2–36.7; O2SAT 98–100; BMI 29.0
--- NOTE | ~2024-12-01 | CT_ITS ---
EXAMINATION: CTA chest abdomen pelvis DATE: 12/01/2024 10:09 INDICATION: Upper abdominal pain. Chest pain. TECHNIQUE: Computed tomographic angiography (CTA) of the chest, abdomen, and pelvis was performed wit h 100 mL Omnipaque-350 intravenous contrast. Automated exposure control and iterative reconstruction technique were employed. The dose-length product was 823.02 mGy-cm. Maximum intensity projection 3D-r econstructions of the aorta and other arteries were constructed by the technologist on a separate wor kstation. COMPARISON: Chest CT 11/14/2024, CT abdomen and pelvis 11/04/2024 FINDINGS: CHEST CTA: The lungs demonstrate mild atelectasis. There are airspace opacities in paraspinal right lower lobe. There are mild peripheral groundglass opacities in right upper lobe and right lower lobe. Calcified l eft lung nodules and calcified left hilar lymph nodes are consistent with old granulomatous disease. No pleural effusion. The heart size is normal. There are coronary artery calcifications. No pericardi al effusion. There is no pulmonary embolus. There is mild aortic atherosclerosis. There is moderate t horacic spondylosis. ABDOMEN AND PELVIS CTA: Calcifications in the liver and spleen are consistent with old granulomatous disease. There are chirinos es of cholecystectomy. The pancreas and right adrenal gland are normal. Again seen is a 1.3 cm mass i n left adrenal gland measuring low attenuation on prior imaging, consistent with an adenoma. The kidn eys demonstrate striated nephrograms, consistent with pyelonephritis. There is diverticulosis of the colon without evidence of diverticulitis. The appendix is normal. There are no dilated loops of bowel . Aortic atherosclerosis is noted. There is no significant stenosis of celiac axis, superior mesenter ic artery, or the renal arteries. 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 There are p atent stents in the common iliac arteries. There are no pathologically enlarged lymph nodes. There is no free intraperitoneal fluid. There is mild lumbar spondylosis. IMPRESSION: 1. Bilateral pyelonephritis. 2. Aortic atherosclerosis. No aneurysm or dissection. 3. Mild airspace opacities in paraspinal right lower lobe and mild groundglass opacities in periphera l right upper lobe and right lower lobe, consistent with pneumonia. Reviewed, dictated and finalized at location A. [facility]OOKER IMPRESSION: 1. Bilateral pyelonephritis. 2. Aortic atherosclerosis. No aneurysm or dissection. 3. Mild airspace opacities in paraspinal right lower lobe and mild groundglass opacities in peripheral right upper lobe and right lower lobe, consistent with pneumonia.
--- NOTE | ~2024-12-01 | XR_ITS ---
Exam: Abdomen 2V HISTORY: intractable nausea and vomiting COMPARISON: None. TECHNIQUE: Supine images of the abdomen and pelvis. FINDINGS: A paucity of bowel gas is identified within the abdomen and pelvis. Bilateral iliac stents. No free air or deep sulci suggesting free air identified. The bilateral lung bases are unremarkable. No air within the rectum. IMPRESSION: Nonspecific, nonobstructive bowel gas pattern. Reviewed, dictated and finalized at location A. EXAMINER
--- NOTE | ~2024-12-01 | XR_ITS ---
EXAMINATION: XR chest 2V DATE: 12/01/2024 08:48 INDICATION: Chest pain TECHNIQUE: PA and lateral views of the chest were obtained. COMPARISON: Chest radiograph dated 11/16/2024 FINDINGS: Calcified nodule at the lateral left midlung zone consistent with old granulomatous disease. Lungs ar e otherwise clear with no other airspace opacities, pulmonary edema, pleural effusion or pneumothorax . Heart size is normal with prominent left paracardial fat pad. Again seen is a partially visualized enchondroma with calcified chondroid matrix at the proximal metadiaphyseal region of the left humerus . Amorphous calcific density projecting alongside the right humeral head consistent with rotator cuff calcific tendinitis. IMPRESSION: 1. No acute cardiopulmonary disease. Reviewed, dictated and finalized at location B. ER HEAD
--- NOTE | 2024-12-01 08:19 | ECG_ITS ---
Test Date: 2024-12-01 08:21:48 Measurements Intervals Roach Rate: 84 P: 46 MA: 135 QRS: 45 QRSD: 94 T: 38 QT: 404 QTc: 478 Interpretive Statements SINUS RHYTHM Compared to ECG 11/16/2024 10:12:33 T-wave abnormality no longer present Electronically Signed On 12-01-2024 14:44:33 JAZZ MUSICIAN by Zayda De Leon M.D.
[2024-12-01 08:40] LABS: Basophils Absolute Auto 0.1 K/mm3 (0.0-0.1); Basophils Percent Auto 0.6 % (0.2-1.2); Eosinophils Absolute Auto 0.2 K/mm3 (0-0.3); Eosinophils Percent Auto 2.3 % (0-4.4); Hemoglobin 12.1 g/dL (12.0-15.0); Immature Granulocyte Absolute 0.07 K/mm3 (0.00-0.031); Immature Granulocyte Percent A 0.8 % (0-0.5); Lymphocytes Absolute Auto 2.09 K/mm3 (0.9-3.2); Lymphocytes Percent Auto 23.7 % (18.3-44.2); Mean Corpuscular HGB Conc 33.6 g/dl (32-36); Mean Corpuscular Hemoglobin 28.5 pg (26-34); Mean Corpuscular Volume 84.7 fl (80-100); Mean Platelet Volume 9.8 fl (7.4-10.4); Monocytes Absolute Auto 0.8 K/mm3 (0.1-0.6); Monocytes Percent Auto 9.1 % (2.6-8.5); Neutrophils Absolute Auto 5.6 K/mm3 (1.3-6.7); Neutrophils Percent Auto 63.5 % (45.5-73.1); Platelet Count Result 344 k/mm3 (150-375); Red Blood Count 4.25 M/mm3 (4.2-5.4); Red Cell Distribution Width 14.4 % (11.5-14.5); White Blood Count 8.8 K/mm3 (4.5-10.0)
[2024-12-01 08:59] LABS: INR 1.1; Partial Thromboplastin Time 28.6 Seconds (22.3-36.8)
--- NOTE | 2024-12-01 09:11 | ED.CHESTPAIN ---
HPI - Chest Pain General Chief Complaint: Chest Pain Stated Complaint: Chest Pain Time Seen by Provider: 12/01/24 08:58 Source: patient Mode of arrival: ambulatory Limitations: no limitations History of Present Illness HPI narrative: This is a this 63-year-old female with PMH of T2 dm, COPD, paroxysmal AFib, GERD, CAD who presents to the ED for chief complaint of upper abdominal pain/chest pain over the past 7 days. Patient states that she was just admitted to the hospital for pneumonia and discharged about 2 weeks ago. States that she saw her primary care yesterday for the N/V and abdominal pain and was prescribed promethazine. States minimal relief with promethazine. Patient states that the pain is most concentrated in the upper abdomen/epigastrium area. Reports the pain does radiate superiorly and sometimes to the back. She does endorse increasing productive cough but has not felt overly short of breath. Denies fevers, chills, urinary symptoms, numbness, weakness. Endorses surgical history of cholecystectomy. Related Data Home Medications ?Medication ?Instructions ?Recorded ?Confirmed ?Last Taken ?Type losartan 100 mg tablet 100 mg PO DAILY 09/12/20 12/01/24 11/30/24 History clopidogrel 75 mg tablet 75 mg PO DAILY 05/20/21 12/01/24 11/30/24 History trazodone 50 mg tablet 50 mg PO HS PRN Insomnia 08/07/23 12/01/24 11/30/24 History lorazepam 0.5 mg tablet 0.5 mg PO TID 08/26/23 12/01/24 11/30/24 History metformin 500 mg tablet 500 mg PO BID 08/26/23 12/01/24 11/30/24 History ezetimibe 10 mg tablet 10 mg PO DAILY 09/23/23 12/01/24 11/30/24 History budesonide-formoterol HFA 160 See Rx Instructions .Route .COMPLEX 10/25/23 12/01/24 11/30/24 History mcg-4.5 mcg/actuation aerosol inhaler (Symbicort) cyclobenzaprine 10 mg tablet 10 mg PO PRN muscle spasm 10/25/23 12/01/24 11/30/24 History ergocalciferol (vitamin D2) 1,250 50,000 unit PO WEEKLY 10/25/23 12/01/24 11/27/24 History mcg (50,000 unit) capsule Zyrtec 1 tab-cap PO DAILY 03/02/24 12/01/24 11/30/24 History cromolyn 4 % eye drops 1 drp EACH EYE DAILY 03/02/24 12/01/24 11/30/24 History evolocumab 140 mg/mL subcutaneous 140 mg subcut MONTHLY 03/02/24 12/01/24 11/19/24 History pen injector (Latha Lau) fluticasone propionate 50 1 spray intranasal DAILY 03/02/24 12/01/24 11/30/24 History mcg/actuation nasal spray,suspension albuterol sulfate 2.5 mg/3 mL 2.5 mg inhalation Q6H PRN 11/05/24 12/01/24 11/30/24 History (0.083 %) solution for nebulization shortness of breath or wheezing fenofibrate 120 mg tablet 120 mg PO DAILY 11/05/24 12/01/24 11/30/24 History montelukast 10 mg tablet 10 mg PO QPM 11/05/24 12/01/24 11/30/24 History sotalol 80 mg tablet 120 mg PO Q12HR 12/01/24 12/01/24 11/30/24 History Allergies Allergy/AdvReac Type Severity Reaction Status Date / Time haloperidol Allergy Unknown Other Verified 11/07/24 14:05 risperidone Allergy Unknown MY MOUTH Verified 11/07/24 14:05 TIGHTENS UP-TD simvastatin Allergy Unknown Other Verified 11/07/24 14:05 [id number] Reductase Allergy Other Verified 11/07/24 14:05 Inhibitor codeine AdvReac Unknown NAUSEA AND Verified 11/07/24 14:05 VOMITING triazolam AdvReac Unknown N/V Verified 11/07/24 14:05 Wasp Allergy Unknown WASP Uncoded 11/07/24 14:05 STING- CLOSES MY THROAT Review of Systems Review of Systems: All systems as dictated in [facility] Past Medical History Medical History (Updated 12/01/24 @ 18:43 by Wilfred Cardozo PA-C) Abdominal pain Pneumonia Colon polyps Hemorrhoid Paroxysmal atrial fibrillation History of diverticulitis Osteoarthritis Tobacco dependence Bladder cancer Hypertension Peripheral arterial disease Type 2 diabetes mellitus Gastroesophageal reflux disease Obstructive sleep apnea Cerebrovascular accident Chronic obstructive pulmonary disease Bipolar disorder Coronary artery disease Anxiety Hyperlipidemia Macular degeneration History of gastroesophageal reflux (GERD) History of diabetes mellitus History of COPD History of bladder cancer Surgical History Surgical History History of transurethral resection of bladder tumor (TURBT) History of vascular surgery Bilateral iliac stent. History of section History of cardiac catheterization History of left-sided carotid endarterectomy History of carpal tunnel release History of colonoscopy History of esophagogastroduodenoscopy (EGD) History of cholecystectomy Family History Family History Sibling Diabetes mellitus Family history of malignant neoplasm Heart disease Social History Social History Smoking packs per day: 2 Smoking cigarettes per day: 40.0 Years smoked: 30 Smoking pack-years: 60.00 Smoking status: Former smoker Second hand tobacco smoke exposure: No Additional smoking assessment comments: pt. was smoking 3 packs a day and has cut down to half a pack daily Alcohol intake: former Substance use: current Substance use type: marijuana Last use: 11/29/23 Do You Feel Safe in your Home?: Yes Lack of Transportation: No Lack of Food: Never True Current Housing: I Have Housing Concerned About Future Housing: No Difficulty Paying Gas/Electric Bills: No Difficulty Paying for Meds: No Currently Unemployed: No Education: High School Diploma/GED Difficulty w/ Childcare or Family Care: No Living arrangements: alone Spiritual care concerns: No Exam Narrative: GENERAL: Well-appearing, well-nourished, and in no acute distress. HEAD: Normocephalic, atraumatic. EYES: PERRLA and EOMI. ENT: Nares clear, no rhinorrhea or epistaxis. Mucous membranes moist. Oropharynx without tonsillar hypertrophy exudate or other lesions. NECK: Supple. No adenopathy or masses. CHEST: No respiratory distress. Clear to auscultation. No wheezes rales or rhonchi HEART: Regular rate and rhythm. No murmur heard. Normal peripheral pulses. ABDOMEN: Focal epigastric tenderness. Soft, otherwise nontender, nondistended, normal active bowel sounds. MSK: Normal range of motion. No edema. SKIN: Warm, dry, no rash. NEURO: Alert and oriented x4. No focal deficits. PSYCH: Normal mood and affect. Course Vital Signs Vital signs: Vital Signs Pulse Rate 89 12/01/24 08:24 Temperature 98.1 F 12/01/24 08:26 Pulse Rate 60 12/01/24 15:01 Respiratory Rate 20 12/01/24 15:01 Blood Pressure 199/104 H 12/01/24 15:01 Pulse Oximetry 98 12/01/24 15:01 Oxygen Delivery Room Air 12/01/24 15:20 MDM - Chest Pain MDM Narrative Medical decision making narrative: This is a 63-year-old female who presents to the ED for chief complaint of upper abdominal pain, N/V. Vitals show mild tachypnea on arrival but otherwise normal. Saturating well on room air. EKG shows sinus rhythm with no acute ischemic findings. Lab work shows normal serial troponins. Heart score is 2. Chest abdomen pelvis CTA: IMPRESSION: 1. Bilateral pyelonephritis. 2. Aortic atherosclerosis. No aneurysm or dissection. 3. Mild airspace opacities in paraspinal right lower lobe and mild groundglass opacities in peripheral right upper lobe and right lower lobe, consistent with pneumonia.. Presentation consistent with pneumonia. Questionable pyelonephritis, however urinalysis is unimpressive. Will cover for both with Rocephin as well as azithromycin. Patient will be admitted to medical floor under Dr. Morris after speaking with hospitalist BRINE ROOM LABORER, Teresa. Patient is understanding and agreeable with plan for admission. Lab Data 12/01/24 08:28 12/01/24 10:04 Labs: Lab Results 12/01/24 12/01/24 12/01/24 Range/Units 08:27 08:28 10:04 WBC 8.8 (4.5-10.0) K/mm3 RBC 4.25 (4.2-5.4) M/mm3 Hgb 12.1 (12.0-15.0) g/dL Hct 36.0 L (37.0-47.0) % MCV 84.7 (80-100) fl MCH 28.5 (26-34) pg MCHC 33.6 (32-36) g/dl RDW 14.4 (11.5-14.5) % Plt Count 344 D (150-375) k/mm3 MPV 9.8 (7.4-10.4) fl Immature Gran % (Auto) 0.8 H (0-0.5) % Neut % (Auto) 63.5 (45.5-73.1) % Lymph % (Auto) 23.7 (18.3-44.2) % [place] % (Auto) 9.1 H (2.6-8.5) % Eos % (Auto) 2.3 (0-4.4) % Baso % (Auto) 0.6 (0.2-1.2) % Lymph # (Auto) 2.09 (0.9-3.2) K/mm3 [place] # (Auto) 0.8 H (0.1-0.6) K/mm3 Eos # (Auto) 0.2 (0-0.3) K/mm3 Baso # (Auto) 0.1 (0.0-0.1) K/mm3 Abs Immat Gran (auto) 0.07 H (0.00-0.031) K/mm3 Absolute Neuts (auto) 5.6 (1.3-6.7) K/mm3 Absolute Nucleated RBC 0.000 (0.0-0.012) K/mm3 Nucleated RBC % 0.0 (0.0-0.2) % PT 15.0 H (11.1-14.7) Seconds INR 1.1 APTT 28.6 (22.3-36.8) Seconds Sodium 133 L (137-145) mmol/L Potassium 3.7 (3.4-5.0) mmol/L Chloride 99 (98-107) mmol/L Carbon Dioxide 25 (22-30) mmol/L Anion Gap 9 (4-12) mmol/L BUN 13 (7-17) mg/dL Creatinine 0.64 L 0.80 (0.7-1.0) mg/dL Estim Creat Clear Calc 75 61 ml/min Estimated GFR > 60 > 60 (59 - ) Glucose 160 H (65-110) mg/dL Hemoglobin A1c Pending Lactic Acid (0.7-2.0) mmol/L Calcium 9.2 (8.4-10.2) mg/dL Phosphorus 2.8 (2.5-4.5) mg/dL Magnesium 1.4 L (1.6-2.3) mg/dL Total Bilirubin 0.8 (0.2-1.3) mg/dL AST 15 (14-36) U/L ALT 14 (6-35) U/L Alkaline Phosphatase 110 (38-126) U/L Troponin I < 0.012 (0.000-0.034) ng/mL Total Protein 7.0 (6.3-8.2) g/dL Albumin 3.7 (3.5-5.1) g/dL Lipase 125 (23-300) U/L Urine Color (Yellow) Urine Appearance (Clear) Urine pH (5.0-9.0) Ur Specific [place] (1.001-1.035) Urine Protein (Negative) mg/dL Urine Glucose (UA) (Negative) mg/dL Urine Ketones (Negative) mg/dL Ur Blood (Man) (Negative) Urine Nitrate (Negative) Urine Bilirubin (Negative) Urine Urobilinogen (<2.0) mg/dL Leukocyte Esterase Rfl (Negative) NORBERTO/UL Urine RBC (0-2) /hpf Urine WBC (0-3) /hpf Ur Squamous Epith Cells (Few) /hpf Urine Bacteria /hpf Urine Casts 12/01/24 12/01/24 Range/Units 11:04 11:23 WBC (4.5-10.0) K/mm3 RBC (4.2-5.4) M/mm3 Hgb (12.0-15.0) g/dL Hct (37.0-47.0) % MCV (80-100) fl MCH (26-34) pg MCHC (32-36) g/dl RDW (11.5-14.5) % Plt Count (150-375) k/mm3 MPV (7.4-10.4) fl Immature Gran % (Auto) (0-0.5) % Neut % (Auto) (45.5-73.1) % Lymph % (Auto) (18.3-44.2) % [place] % (Auto) (2.6-8.5) % Eos % (Auto) (0-4.4) % Baso % (Auto) (0.2-1.2) % Lymph # (Auto) (0.9-3.2) K/mm3 [place] # (Auto) (0.1-0.6) K/mm3 Eos # (Auto) (0-0.3) K/mm3 Baso # (Auto) (0.0-0.1) K/mm3 Abs Immat Gran (auto) (0.00-0.031) K/mm3 Absolute Neuts (auto) (1.3-6.7) K/mm3 Absolute Nucleated RBC (0.0-0.012) K/mm3 Nucleated RBC % (0.0-0.2) % PT (11.1-14.7) Seconds INR APTT (22.3-36.8) Seconds Sodium (137-145) mmol/L Potassium (3.4-5.0) mmol/L Chloride (98-107) mmol/L Carbon Dioxide (22-30) mmol/L Anion Gap (4-12) mmol/L BUN (7-17) mg/dL Creatinine (0.7-1.0) mg/dL Estim Creat Clear Calc ml/min Estimated GFR (59 - ) Glucose (65-110) mg/dL Hemoglobin A1c Lactic Acid 1.3 (0.7-2.0) mmol/L Calcium (8.4-10.2) mg/dL Phosphorus (2.5-4.5) mg/dL Magnesium (1.6-2.3) mg/dL Total Bilirubin (0.2-1.3) mg/dL AST (14-36) U/L ALT (6-35) U/L Alkaline Phosphatase (38-126) U/L Troponin I < 0.012 (0.000-0.034) ng/mL Total Protein (6.3-8.2) g/dL Albumin (3.5-5.1) g/dL Lipase (23-300) U/L Urine Color Yellow (Yellow) Urine Appearance Clear (Clear) Urine pH 8.0 (5.0-9.0) Ur Specific [place] 1.026 (1.001-1.035) Urine Protein 1+ H (Negative) mg/dL Urine Glucose (UA) Negative (Negative) mg/dL Urine Ketones Negative (Negative) mg/dL Ur Blood (Man) Negative (Negative) Urine Nitrate Negative (Negative) Urine Bilirubin Negative (Negative) Urine Urobilinogen 0.2 (<2.0) mg/dL Leukocyte Esterase Rfl Negative (Negative) NORBERTO/UL Urine RBC 0-2 (0-2) /hpf Urine WBC 0-5 (0-3) /hpf Ur Squamous Epith Cells None seen (Few) /hpf Urine Bacteria None seen /hpf Urine Casts 0-2 ECG Data EKG #1: ECG completion date: 12/01/24 ECG completion time: 08:21 Prior ECG tracings: available for review Interpretation: Sinus rhythm Rate 84 QTC very slightly prolonged at 478 No acute ischemic findings No ischemic findings compared ECG 11/16/2024 Discharge Plan Discharge Clinical Impression: Pneumonia, Abnormal abdominal CT scan Patient Disposition: Still a Patient Condition: Stable Quality HEART score for chest pain patients History: slightly suspicious ECG: normal Age: > 45 and < 65 years Risk factors: 1 or 2 risk factors Troponin: < or = to 1x normal limit Heart score: 2
[2024-12-01] MEDS: METOCLOPRAMIDE HCL INJ 10 MG/2 ML VIAL IV PUSH (09:22)
[2024-12-01] MEDS: SODIUM CHLORIDE 0.9% IV 1,000 ML 999 ML IV CONT (09:22)
[2024-12-01] MEDS: HYDROmorphone HCL INJ (*CRX) 1 MG/ML SYR 0.5 MG IV PUSH (09:22)
[2024-12-01 10:06] LABS: Estimated CRCL calculation 61 ml/min; Estimated Glomerular Filt Rate > 60
[2024-12-01 10:09] LABS: Alanine Aminotransferase 14 U/L (6-35); Albumin Level 3.7 g/dL (3.5-5.1); Alkaline Phosphatase 110 U/L (38-126); Anion Gap 9 mmol/L (4-12); Aspartate Amino Transferase 15 U/L (14-36); Bilirubin,Total 0.8 mg/dL (0.2-1.3); Blood Urea Nitrogen 13 mg/dL (7-17); Calcium 9.2 mg/dL (8.4-10.2); Carbon Dioxide 25 mmol/L (22-30); Chloride 99 mmol/L (98-107); Estimated CRCL calculation 75 ml/min; Estimated Glomerular Filt Rate > 60; Glucose 160 mg/dL (65-110); Lipase 125 U/L (23-300); Magnesium 1.4 mg/dL (1.6-2.3); Phosphorus 2.8 mg/dL (2.5-4.5); Potassium 3.7 mmol/L (3.4-5.0); Sodium 133 mmol/L (137-145)
[2024-12-01 10:26] LABS: Troponin I < 0.012 ng/mL (0.000-0.034)
[2024-12-01 11:25] LABS: Add Urine Microscopic? YES; Appearance Urine Clear (Clear); Bacteria Urine None Seen /hpf; Bilirubin Urine Negative (Negative); Blood Urine Negative (Negative); Color Urine Yellow (Yellow); Glucose Urine UA Negative (Negative); Ketones Urine Negative (Negative); Leukocyte Esterase Ur Negative LEU/UL (Negative); Nitrate Urine Negative (Negative); Non Pathogenic Casts 0-2; Protein Urine 1+ mg/dL (Negative); RBC Urine 0-2 /hpf (0-2); Specific Grav Ur 1.026 (1.001-1.035); Squamous Epithelial Cell Urine None Seen /hpf (Few); Urobilinogen Urine 0.2 mg/dL (<2.0); WBC Urine 0-5 /hpf (0-3)
[2024-12-01 11:46] LABS: Lactic Acid Reflex 1.3 mmol/L (0.7-2.0)
[2024-12-01 11:59] LABS: Troponin I < 0.012 ng/mL (0.000-0.034)
[2024-12-01] MEDS: IPRATROPIUM 0.5 MG/ALBUTEROL SULFATE 2.5 MG AMPUL.NEB 3 ML INHALATION ×2 (12:26→21:07)
[2024-12-01] MEDS: methylPREDNISolone SOD SUCC 125 MG VIAL 60 MG IV PUSH (12:36)
[2024-12-01] MEDS: AZITHROMYCIN 500 MG/NS 250 ML 500 MG/250 ML BAG 250 MG IVPB (12:36)
[2024-12-01] MEDS: PROMETHAZINE HCL 25 MG/ML AMPUL 12.5 MG IV PUSH (12:56)
[2024-12-01 13:41] LABS: Influenza A QL RT-PCR Negative (Negative); Influenza B QL RT-PCR Negative (Negative); RSV RNA, RT-PCR Negative (Negative); SARS-CoV-2 RNA PCR Positive (Negative)
--- NOTE | 2024-12-01 15:02 | PC.NURSE ---
Patients BP increasing, MD made aware and one dose of hydralazine ordered IV.
[2024-12-01] MEDS: hydrALAZINE HCL 20 MG/ML VIAL 10 MG IV PUSH (15:05)
--- NOTE | 2024-12-01 15:10 | ADMGEN ---
This patient, Rody Zaidi, was admitted to 3 Med Surg Room 315-01. Patient/family oriented to hospital policies and general routines including ID bracelet, bed and alarms, visiting hours, pain management, procedures, bathroom and other care routines, personal items, smoking policy, room service/diet, and visiting hours. Information on how to activate the Rapid Response Team has been discussed. Patient/Family are encouraged to report perceived risks to care and to ask questions if they do not understand what they are told or what they should do.
[2024-12-01 15:53] LABS: Troponin I < 0.012 ng/mL (0.000-0.034)
[2024-12-01] MEDS: MAGNESIUM SULF 1 GM/D5W 100 ML 1 GM/100 ML BAG IVPB (16:22)
[2024-12-01] MEDS: fentaNYL CITRATE INJ (*CRX) 100 MCG/2 ML VIAL 25 MCG IV PUSH (16:25)
--- NOTE | 2024-12-01 16:25 | P.HP_ITS ---
H&P: HPI History of Present Illness Date/Time: 12/01/24 16:25 Chief Complaint: Chest pain, N/V Narrative: This 63 year old female pt with PMH of DM, COPD, PAF on eliquis, GERD, CAD, Bladder cancer, bipolar disorder and recent admission in October for COVID and then repeat admission for it in early November comes to the ER today with once again having CP, N/V for the past week. Pt was recently discharged last on 11/18/24 after being cleared by cardiology for her CP with orders to continue Plavix for DEO in BLE, Eliquis for her A-fib, Sotalol for her fib and will follow up with her on 12/08/24 for routine following. They mentioned stress could be done as outpt if needed. Pt states upon return home a few days later she broke her Nebulizer machine had has not been able to do her nebs. She reports a non-productive cough with tightness in the chest and epigastric pain as well. ER workup was significant for the following: Normal WBC's, renal function, trop and urine negative, EKG showing NSR 84 bpm without any ischemic changes, CXR NAD, but CTA C/A/P shows concern for potential Bilateral pyelonephritis, and RLL and RUL PNA. She is no longer on isolation for her COVID as it has been an appropriate time of isolation already. Review of Systems Review of Systems: All systems reviewed & are unremarkable except as noted in HPI and below PMFSH Past Medical History Medical History (Updated 12/01/24 @ 16:44 by FAYE Cruz) Abdominal pain Pneumonia Colon polyps Hemorrhoid Paroxysmal atrial fibrillation History of diverticulitis Osteoarthritis Tobacco dependence Bladder cancer Hypertension Peripheral arterial disease Type 2 diabetes mellitus Gastroesophageal reflux disease Obstructive sleep apnea Cerebrovascular accident Chronic obstructive pulmonary disease Bipolar disorder Coronary artery disease Anxiety Hyperlipidemia Macular degeneration History of gastroesophageal reflux (GERD) History of diabetes mellitus History of COPD History of bladder cancer Surgical History Surgical History History of transurethral resection of bladder tumor (TURBT) History of vascular surgery Bilateral iliac stent. History of section History of cardiac catheterization History of left-sided carotid endarterectomy History of carpal tunnel release History of colonoscopy History of esophagogastroduodenoscopy (EGD) History of cholecystectomy Family History Family History Sibling Diabetes mellitus Family history of malignant neoplasm Heart disease Social History Social History Smoking packs per day: 2 Smoking cigarettes per day: 40.0 Years smoked: 30 Smoking pack-years: 60.00 Smoking status: Former smoker Second hand tobacco smoke exposure: No Additional smoking assessment comments: pt. was smoking 3 packs a day and has cut down to half a pack daily Alcohol intake: former Substance use: current Substance use type: marijuana Last use: 11/29/23 Do You Feel Safe in your Home?: Yes Lack of Transportation: No Lack of Food: Never True Current Housing: I Have Housing Concerned About Future Housing: No Difficulty Paying Gas/Electric Bills: No Difficulty Paying for Meds: No Currently Unemployed: No Education: High School Diploma/GED Difficulty w/ Childcare or Family Care: No Living arrangements: alone Spiritual care concerns: No Meds Home Medications and Allergies Home Medications ?Medication ?Instructions ?Recorded ?Confirmed ?Type losartan 100 mg tablet 100 mg PO DAILY 09/12/20 12/01/24 History clopidogrel 75 mg tablet 75 mg PO DAILY 05/20/21 12/01/24 History albuterol sulfate 90 mcg/actuation 2 puff inhalation QID PRN 07/29/23 12/01/24 Rx aerosol inhaler shortness of breath or wheezing #6.7 grams inhalational spacing device #1 ea 07/29/23 11/14/24 Rx (Aerochamber MV spacer) trazodone 50 mg tablet 50 mg PO HS PRN Insomnia 08/07/23 12/01/24 History apixaban 5 mg tablet (Eliquis) 5 mg PO Q12HR #60 tabs 08/11/23 12/01/24 Rx lorazepam 0.5 mg tablet 0.5 mg PO TID 08/26/23 12/01/24 History metformin 500 mg tablet 500 mg PO BID 08/26/23 12/01/24 History metoclopramide HCl 10 mg tablet 10 mg PO BID PRN nausea and 08/26/23 12/01/24 Rx (Reglan) vomiting #60 tabs ezetimibe 10 mg tablet 10 mg PO DAILY 09/23/23 12/01/24 History budesonide-formoterol HFA 160 See Rx Instructions .Route .COMPLEX 10/25/23 12/01/24 History mcg-4.5 mcg/actuation aerosol inhaler (Symbicort) cyclobenzaprine 10 mg tablet 10 mg PO PRN muscle spasm 10/25/23 12/01/24 History ergocalciferol (vitamin D2) 1,250 50,000 unit PO WEEKLY 10/25/23 12/01/24 History mcg (50,000 unit) capsule hydrocodone 5 mg-acetaminophen 325 1 tablet PO Q8H PRN Pain Rated 4-6 10/28/23 12/01/24 Rx mg tablet #15 tabs oxybutynin chloride 5 mg tablet 5 mg PO TID #90 tabs 10/28/23 12/01/24 Rx Zyrtec 1 tab-cap PO DAILY 03/02/24 12/01/24 History cromolyn 4 % eye drops 1 drp EACH EYE DAILY 03/02/24 12/01/24 History evolocumab 140 mg/mL subcutaneous 140 mg subcut MONTHLY 03/02/24 12/01/24 History pen injector (Repatha SureClick) fluticasone propionate 50 1 spray intranasal DAILY 03/02/24 12/01/24 History mcg/actuation nasal spray,suspension dexlansoprazole 30 mg See Rx Instructions .Route 08/24/24 12/01/24 Rx capsule,biphase delayed release .COMPLEX #30 caps hydrocortisone 2.5 % topical cream 1 applic RECTAL DAILY PRN 10/02/24 12/01/24 Rx with perineal applicator hemorrhoids #30 grams albuterol sulfate 2.5 mg/3 mL 2.5 mg inhalation Q6H PRN 11/05/24 12/01/24 History (0.083 %) solution for nebulization shortness of breath or wheezing fenofibrate 120 mg tablet 120 mg PO DAILY 11/05/24 12/01/24 History montelukast 10 mg tablet 10 mg PO QPM 11/05/24 12/01/24 History magnesium oxide 400 mg (241.3 mg 400 mg PO DAILY #7 tabs 11/10/24 12/01/24 Rx magnesium) tablet sodium chloride 1,000 mg soluble 1,000 mg PO BID #30 tabs 11/10/24 12/01/24 Rx tablet fluoxetine 40 mg capsule 20 mg (1/2 x 40 mg) PO QPM #30 caps 11/18/24 12/01/24 Rx midodrine 2.5 mg tablet 5 mg (2 x 2.5 mg) PO BID #60 tabs 11/18/24 12/01/24 Rx ondansetron HCl 4 mg tablet 4 mg PO Q8H PRN Nausea And 11/18/24 12/01/24 Rx Vomiting #10 tabs sotalol 80 mg tablet 120 mg PO Q12HR 12/01/24 12/01/24 History Allergies Allergy/AdvReac Type Severity Reaction Status Date / Time haloperidol Allergy Unknown Other Verified 11/07/24 14:05 risperidone Allergy Unknown MY MOUTH Verified 11/07/24 14:05 TIGHTENS UP-TD simvastatin Allergy Unknown Other Verified 11/07/24 14:05 [id number] Reductase Allergy Other Verified 11/07/24 14:05 Inhibitor codeine AdvReac Unknown NAUSEA AND Verified 11/07/24 14:05 VOMITING triazolam AdvReac Unknown N/V Verified 11/07/24 14:05 Wasp Allergy Unknown WASP Uncoded 11/07/24 14:05 STING- CLOSES MY THROAT Vital Signs Vital Signs - 24 hr 12/01/24 08:24 12/01/24 08:26 12/01/24 11:43 Temperature 98.1 F Pulse Rate 89 88 86 Respiratory Rate 25 H 20 Blood Pressure 128/107 H 178/90 H Pulse Oximetry 100 98 Oxygen Delivery 12/01/24 12:26 12/01/24 12:36 12/01/24 13:01 Temperature Pulse Rate 86 82 87 Respiratory Rate 16 20 22 H Blood Pressure 151/89 H Pulse Oximetry 100 Oxygen Delivery 12/01/24 15:01 12/01/24 15:20 Temperature Pulse Rate 60 Respiratory Rate 20 Blood Pressure 199/104 H Pulse Oximetry 98 Oxygen Delivery Room Air Exam Const: General: uncomfortable Other: 63 year old female appearing ill. HENMT: Face/Nose/Sinus: Normal nares present Mouth: Yes dry mucous membranes Eyes: General: appearance normal, both eyes and all related structures Sclera: sclerae normal Pupils: Equal, round and reactive pupils present EOM: EOMs intact bilaterally Neck: Neck: supple and no JVD Chest: Other: non-tender Resp: Effort & Inspection: normal respiratory effort Auscultation: crackles and rhonchi Cardio: Rate: regular rate Rhythm: regular rhythm Heart sounds: no hui ps, no murmurs and no rubs GI: GI Palp: Yes Soft to palpation, No Firmness to palpation present (GI), Yes Tenderness to palpation present (GI) (epigastric), No Guarding due to palpation present (GI) and No Hernia present Auscultation: normal bowel sounds Skin: General skin exam: normal color and rashes and/or lesions noted (scattered ecchymosis on BUE.) Neuro: General: gait normal Speech: normal speech Motor exam (neuro): 5/5 motor strength present throughout and Normal motor muscle tone present throughout Sensory Exam: normal sensation Extrem: General: normal to inspection, no edema and no pedal edema Psych: Mental Status: mental status grossly normal Affect: Hostile affect present (Pt tearful, says she was mean to nurse. Apologetic now.) H&P: Results Labs Labs: Short CBC 12/01/24 Range/Units 08:28 WBC 8.8 (4.5-10.0) K/mm3 Hgb 12.1 (12.0-15.0) g/dL Hct 36.0 L (37.0-47.0) % Plt Count 344 D (150-375) k/mm3 BMP 12/01/24 12/01/24 08:28 10:04 Sodium 133 L Potassium 3.7 Chloride 99 Carbon Dioxide 25 BUN 13 Creatinine 0.64 L 0.80 Glucose 160 H Calcium 9.2 Cardiac Enzymes 12/01/24 12/01/24 12/01/24 Range/Units 08:28 11:23 15:25 Troponin I < 0.012 < 0.012 < 0.012 (0.000-0.034) ng/mL Liver Function 12/01/24 Range/Units 08:28 Total Bilirubin 0.8 (0.2-1.3) mg/dL AST 15 (14-36) U/L ALT 14 (6-35) U/L Alkaline Phosphatase 110 (38-126) U/L Albumin 3.7 (3.5-5.1) g/dL Urine 12/01/24 Range/Units 11:04 Urine Color Yellow (Yellow) Urine Appearance Clear (Clear) Urine pH 8.0 (5.0-9.0) Ur Specific [place] 1.026 (1.001-1.035) Urine Protein 1+ H (Negative) mg/dL Urine Glucose (UA) Negative (Negative) mg/dL Assessment and Plan Assessment and plan (1) Pneumonia: Code(s): J18.9 - Pneumonia, unspecified organism Status: Acute Assessment and Plan: * Continue Rocephin and Azithromycin * Continue Albuterol prn Q4 hrs and Scheduled Duoneb Q6 hrs. * Trend labs and VS. * IS * Not meeting sepsis criteria. (2) Pyelonephritis: Code(s): N12 - Tubulo-interstitial nephritis, not specified as acute or chronic Status: Acute Assessment and Plan: * As evidenced by CTA Abdomen and pelvis * Was also seen during previous admission. * Pt's urinalysis is not reflecting a pyelo. * Urine culture added * Covered with the Rocephin she is receiving for her PNA. * Given normal urine, low suspicion of actual Pyelo. (3) Abdominal pain: Code(s): R10.9 - Unspecified abdominal pain Status: Acute Assessment and Plan: * Etiology cardiac vs. GI - Hx of known gastroparesis vs. Pyelo * Continue Abx. * Consider Cardiac consult, but low suspicion of ACS in given setting and presentation * Trend trops (4) Hypertension associated with type 2 diabetes mellitus: Code(s): E11.59 - Type 2 diabetes mellitus with other circulatory complications; I15.2 - Hypertension secondary to endocrine disorders Status: Chronic Assessment and Plan: * Continue home hypertensive medications. * Continue to trend and monitor VS. (5) Chest pain: Code(s): R07.9 - Chest pain, unspecified Status: Acute Assessment and Plan: * Trend trops * PRN EKG * Telemetry * Consider Cardiology consult * Pain likely from current state of PNA. (6) Atrial fibrillation: Code(s): I48.91 - Unspecified atrial fibrillation Status: Chronic Assessment and Plan: * Continue Eliquis * Continue Sotalol * Telemetry (7) Diabetes type 2, controlled: Code(s): E11.9 - Type 2 diabetes mellitus without complications Status: Chronic Assessment and Plan: * Hypoglycemic protocol * Glucose checks ac and HS * Hold home oral hypoglycemics * Initiate SSI * Check A1C * Diabetic diet (8) History of bladder cancer: Code(s): Z85.51 - Personal history of malignant neoplasm of bladder Status: Chronic Quality VTE Prophylaxis VTE prophylaxis: pharmacologic ordered Hospitalist MIPS Advance Care Plan I have confirmed that the patient's Advanced Care Plan is present, code status is documented, or surrogate decision maker is listed in patient medical record.: Yes Medication Reconciliation I have utilized all available resources to obtain, update and review the patients current medications (includes all prescriptions, OTC, herbals, cannabis, and nutritional supplements).: Yes The patient is not eligible for med reconciliation; the patient is in a emergent medical situation where delaying treatment would jeopardize the patients health.: Yes
[2024-12-01 16:53] LABS: Glucose Point of Care 207 mg/dl (65-105)
[2024-12-01] MEDS: INSULIN ASPART (*BKC) 100 UNITS/ML SUB-Q (17:11)
[2024-12-01] MEDS: metFORMIN HCL 500 MG TABLET PO (17:15)
[2024-12-01] MEDS: FLUoxetine HCL 20 MG CAPSULE PO (17:15)
[2024-12-01] MEDS: oxyBUTYnin CHLORIDE 5 MG TABLET PO (17:15)
[2024-12-01] MEDS: SODIUM CHLORIDE 1 GM TABLET PO (17:15)
[2024-12-01] MEDS: MONTELUKAST SODIUM 10 MG TABLET PO (17:16)
[2024-12-01] MEDS: LORazepam (*CRX) 0.5 MG TABLET PO ×2 (17:16→22:28)
[2024-12-01 20:45] LABS: Glucose Point of Care 187 mg/dl (65-105)
[2024-12-01] MEDS: SOTALOL HCL 40 MG TABLET PO (20:59)
[2024-12-01 21:00] LABS: Hemoglobin A1C 5.5 % (<5.7)
[2024-12-01] MEDS: SOTALOL HCL 80 MG TABLET PO (21:00)
[2024-12-01] MEDS: APIXABAN 5 MG TABLET PO (21:00)
[2024-12-01] MEDS: FLUTICASONE/SALMETEROL 115-21 MCG INHALER 1 PUFF 2 PUFF INHALATION (21:08)
[2024-12-01] MEDS: ACETAMINOPHEN 325 MG TABLET 650 MG PO (22:23)
[2024-12-02] VITALS (14 sets, daily range): BP systolic 105–140; BP diastolic 62–90; PULSE 78–88; RESP 12–24; TEMP 36.5–36.7; O2SAT 94–100
[2024-12-02] MEDS: HYDROcodone/acetaminophen (*CRX) 5-325 MG TABLET 1 TAB PO ×3 (00:32→21:07)
[2024-12-02] MEDS: ONDANSETRON HCL ODT 4 MG TABLET PO (00:32)
[2024-12-02] MEDS: IPRATROPIUM 0.5 MG/ALBUTEROL SULFATE 2.5 MG AMPUL.NEB 3 ML INHALATION ×4 (02:49→22:10)
[2024-12-02 07:54] LABS: Glucose Point of Care 116 mg/dl (65-105)
[2024-12-02] MEDS: AZITHROMYCIN 500 MG/NS 250 ML 500 MG/250 ML BAG 250 MG IVPB (08:35)
[2024-12-02] MEDS: FLUTICASONE/SALMETEROL 115-21 MCG INHALER 1 PUFF 2 PUFF INHALATION ×2 (08:56→22:11)
--- NOTE | 2024-12-02 09:28 | P.PNIM_ITS ---
Progress Note: A&P Assessment and Plan (1) Hypertension associated with type 2 diabetes mellitus: Code(s): E11.59 - Type 2 diabetes mellitus with other circulatory complications; I15.2 - Hypertension secondary to endocrine disorders Status: Chronic (2) Atrial fibrillation with rapid ventricular response: Code(s): I48.91 - Unspecified atrial fibrillation Status: Acute (3) Atrial fibrillation: Code(s): I48.91 - Unspecified atrial fibrillation Status: Chronic (4) Atrial fibrillation with RVR: Code(s): I48.91 - Unspecified atrial fibrillation Status: Acute (5) Uncontrolled atrial fibrillation: Code(s): I48.91 - Unspecified atrial fibrillation Status: Acute (6) Paroxysmal atrial fibrillation: Code(s): I48.0 - Paroxysmal atrial fibrillation Status: Acute (7) Atrial fibrillation with RVR: Code(s): I48.91 - Unspecified atrial fibrillation Status: Acute (8) Peripheral arterial disease: Code(s): I73.9 - Peripheral vascular disease, unspecified Status: Acute (9) Diabetes type 2, controlled: Code(s): E11.9 - Type 2 diabetes mellitus without complications Status: Chronic (10) Type 2 diabetes mellitus: Code(s): E11.9 - Type 2 diabetes mellitus without complications Status: Acute Plan This 63 year old female pt with PMH of DM, COPD, PAF on eliquis, GERD, CAD, Bladder cancer, bipolar disorder and recent admission in October for COVID and then repeat admission for it in early November comes to the ER because of having CP, N/V for the past week. Pt was recently discharged last on 11/18/24 after being cleared by cardiology for her CP with orders to continue Plavix for DEO in BLE, Eliquis for her A-fib, Sotalol for her fib and will follow up with her on 12/08/24 for routine following. They mentioned stress could be done as outpt if needed. Pt states upon return home a few days later she broke her Nebulizer machine had has not been able to do her nebs. She reports a non-productive cough with tightness in the chest and epigastric pain as well. ER workup was significant for the following: Normal WBC's, renal function, trop and urine negative, EKG showing NSR 84 bpm without any ischemic changes, CXR NAD, but CTA C/A/P shows concern for potential Bilateral pyelonephritis, and RLL and RUL PNA. She is no longer on isolation for her COVID as it has been an appropriate time of isolation already. (1) Pneumonia: Code(s): J18.9 - Pneumonia, unspecified organism Status: Acute Assessment and Plan: * Continue Rocephin and Azithromycin * Continue Albuterol prn Q4 hrs and Scheduled Duoneb Q6 hrs. * Trend labs and VS. * IS * Not meeting sepsis criteria. COVID positive Patient has pleural chest pain Start Decadron p.o. (2) Pyelonephritis: Code(s): N12 - Tubulo-interstitial nephritis, not specified as acute or chronic Status: Acute Assessment and Plan: As evidenced by CTA Abdomen and pelvis Was also seen during previous admission. Urine culture pending Urinalysis does not show pyuria (3) Abdominal pain: Code(s): R10.9 - Unspecified abdominal pain Status: Acute Assessment and Plan: * Etiology cardiac vs. GI - Hx of known gastroparesis vs. Pyelo * Continue Abx. * Consider Cardiac consult, but low suspicion of ACS in given setting and presentation * Trend trops * (4) Hypertension associated with type 2 diabetes mellitus: Code(s): E11.59 - Type 2 diabetes mellitus with other circulatory complications; I15.2 - Hypertension secondary to endocrine disorders Status: Chronic Assessment and Plan: * Continue home hypertensive medications. * Continue to trend and monitor VS.(5) Chest pain: Code(s): R07.9 - Chest pain, unspecified Status: Acute Assessment and Plan: * Trend trops * PRN EKG * Telemetry * Consider Cardiology consult * Pain likely from current state of PNA. (6) Atrial fibrillation: Code(s): I48.91 - Unspecified atrial fibrillation Status: Chronic Assessment and Plan: * Continue Eliquis * Continue Sotalol * Telemetry(7) Diabetes type 2, controlled: Code(s): E11.9 - Type 2 diabetes mellitus without complications Status: Chronic Assessment and Plan: * Hypoglycemic protocol * Glucose checks ac and HS * Hold home oral hypoglycemics * Initiate SSI * Check A1C * Diabetic diet(8) History of bladder cancer: Code(s): Z85.51 - Personal history of malignant neoplasm of bladder Status: Chronic Subjective Date/time seen: 12/02/24 09:28 Interval history: Patient is afebrile, blood pressure stable, pulse ox 100% room air, upon arrival, COVID positive Objective Data Vital Signs Vital Signs: Vital Signs - 24 hr 12/01/24 11:43 12/01/24 12:26 12/01/24 12:36 Temperature Pulse Rate 86 86 82 Respiratory Rate 20 16 20 Blood Pressure 178/90 H Pulse Oximetry 98 Oxygen Delivery Fraction of Inspired Oxygen 12/01/24 13:01 12/01/24 15:01 12/01/24 15:20 Temperature Pulse Rate 87 60 Respiratory Rate 22 H 20 Blood Pressure 151/89 H 199/104 H Pulse Oximetry 100 98 Oxygen Delivery Room Air Fraction of Inspired Oxygen 12/01/24 20:00 12/01/24 21:00 12/01/24 21:09 Temperature Pulse Rate 78 90 78 Respiratory Rate 19 19 Blood Pressure Pulse Oximetry 98 Oxygen Delivery Room Air Fraction of Inspired Oxygen 12/01/24 21:33 12/02/24 02:49 12/02/24 02:57 Temperature 97.1 F L Pulse Rate 104 H 80 81 Respiratory Rate 14 20 20 Blood Pressure 124/63 Pulse Oximetry 99 Oxygen Delivery Fraction of Inspired Oxygen 12/02/24 05:29 12/02/24 08:56 12/02/24 08:56 Temperature 97.9 F Pulse Rate 85 81 Respiratory Rate 12 20 Blood Pressure 105/62 Pulse Oximetry 100 99 Oxygen Delivery Room Air Fraction of Inspired Oxygen 12/02/24 09:02 Temperature Pulse Rate 80 Respiratory Rate 20 Blood Pressure Pulse Oximetry Oxygen Delivery Fraction of Inspired Oxygen Intake/Output Intake/Output: Intake & Output 11/29/24 11/30/24 12/01/24 12/02/24 23:59 23:59 23:59 23:59 Intake Total 1640 650 Output Total 700 Balance 1640 -50 Meds/Results Medications: Active Medications Generic Name Dose Route Start Last Admin Trade Name Freq PRN Reason Stop Dose Admin Acetaminophen 650 mg 12/01/24 15:48 12/01/24 22:23 Acetaminophen 325 Mg Tablet PO 650 mg Q4H PRN Administration Mild Pain (1-3) or Fever Hydrocodone Bitart/Acetaminophen 1 tab 12/01/24 16:45 12/02/24 00:32 Hydrocodone/Acetaminophen (*Crx) 5-325 Mg Tablet PO 1 tab Q8H PRN Administration Pain Rated 4-6 Albuterol 2.5 mg 12/01/24 16:45 Albuterol Sulfate Neb 2.5 Mg/3 Ml Inh INHALATION Q6H PRN shortness of breath or wheezing Albuterol 2 puff 12/01/24 16:45 Albuterol Sulfate (*Sp) Aerosol 1 Puff INHALATION QID PRN shortness of breath or wheezing Albuterol/Ipratropium 3 ml 12/01/24 14:00 12/02/24 08:57 Ipratropium 0.5 Mg/Albuterol Sulfate 2.5 Mg Ampul.Neb 3 Ml INHALATION 3 ml Q6HRT [facility] Administration Apixaban 5 mg 12/01/24 21:00 12/01/24 21:00 Apixaban 5 Mg Tablet PO 5 mg Q12HR [facility] Administration Clopidogrel Bisulfate 75 mg 12/02/24 09:00 Clopidogrel Bisulfate 75 Mg Tablet PO DAILY [facility] Cyclobenzaprine HCl 10 mg 12/01/24 16:47 Cyclobenzaprine Hcl 10 Mg Tablet PO TID PRN Muscle/Joint Pain Dextrose 12.5 gm 12/01/24 16:38 Dextrose 50% 25 Gm/50 Ml Syringe IV PUSH PRN PRN Hypoglycemia Protocol Ezetimibe 10 mg 12/02/24 09:00 Ezetimibe 10 Mg Tablet PO DAILY [facility] Ergocalciferol 50,000 units 12/11/24 09:00 Ergocalciferol 50,000 Units Capsule PO Mo@0900 [facility] Fenofibrate 145 mg 12/02/24 09:00 Fenofibrate Nanocrystallized 145 Mg Tablet PO QAM [facility] Fentanyl Citrate 25 mcg 12/01/24 15:48 12/01/24 16:25 Fentanyl Citrate Inj (*Crx) 100 Mcg/2 Ml Vial IV PUSH 25 mcg Q4H PRN Administration Pain Rated 7-10 Fluoxetine HCl 20 mg 12/01/24 18:00 12/01/24 17:15 Fluoxetine Hcl 20 Mg Capsule PO 20 mg QPM [facility] Administration Fluticasone Propionate 1 spray 12/02/24 09:00 Fluticasone Propionate 0.05% Na Spr 16 Gm Btl (*Bkc) NASAL DAILY [facility] Glucagon 1 mg 12/01/24 16:38 Glucagon For Inj 1 Mg Vial IM PRN PRN Hypoglycemia Protocol Glucose 15 gm 12/01/24 16:38 Glucose Oral Gel 15 Gm Of Glucse In 37.5 Gm Tube PO PRN PRN Hypoglycemia Protocol Hydralazine HCl 10 mg 12/01/24 14:59 Hydralazine Hcl 20 Mg/Ml Vial IV PUSH Q8H PRN Blood Pressure - High Hydrocortisone 1 applic 12/01/24 17:01 Hydrocortisone 2.5% Cream 30 Gm Tube RECTAL DAILY PRN hemorrhoids Ceftriaxone Sodium 1 gm in 50 mls @ 100 mls/hr 12/02/24 09:00 Rocephin 1 Gm/Ns 50 Ml IVPB Q24H [facility] Azithromycin 500 mg in 250 mls @ 250 mls/hr 12/02/24 09:00 12/02/24 08:35 Zithromax IVPB 250 mls/hr Q24H [facility] Administration Dextrose 1,000 mls @ 100 mls/hr 12/01/24 16:38 Dextrose 5% 1,000 Ml IVPB PRN PRN Hypoglycemia Protocol Ibuprofen 600 mg 12/01/24 15:48 Ibuprofen 600 Mg Tablet PO Q6H PRN Pain Rated 4-6 Insulin Aspart 2 - 5 units 12/01/24 17:00 12/02/24 08:06 Insulin Aspart (*Bkc) 100 Units/Ml SUB-Q Not Given TIDWM [facility] Protocol Insulin Aspart 1 - 2 units 12/01/24 21:00 12/01/24 21:01 Insulin Aspart (*Bkc) 100 Units/Ml SUB-Q Not Given HS [facility] Protocol Loratadine 10 mg 12/02/24 09:00 Loratadine 10 Mg Tablet PO QAM [facility] Lorazepam 0.5 mg 12/01/24 17:00 12/01/24 22:28 Lorazepam (*Crx) 0.5 Mg Tablet PO 0.5 mg TID [facility] Administration Losartan Potassium 100 mg 12/02/24 09:00 Losartan Potassium 100 Mg Tablet PO DAILY [facility] Magnesium Oxide 400 mg 12/02/24 09:00 Magnesium Oxide 400 Mg Tablet PO DAILY [facility] Metformin HCl 500 mg 12/01/24 17:00 12/01/24 17:15 Metformin Hcl 500 Mg Tablet PO 500 mg BID [facility] Administration Metoclopramide HCl 10 mg 12/01/24 16:45 Metoclopramide Hcl 10 Mg Tablet PO BID PRN nausea and vomiting Midodrine 5 mg 12/01/24 17:00 12/01/24 17:16 Midodrine Hcl 2.5 Mg Tablet PO Not Given BID [facility] Miscellaneous Information 0 each 12/01/24 00:01 12/01/24 17:08 Evolocumab (Latha Lopezhuthierno) Is Nonformulary - Can Patient Use From Home? Hold While Her XX 12/31/24 00:00 Not Given CLARIFY [facility] Miscellaneous Information 0 each 12/01/24 00:01 12/01/24 17:08 Cromolyn Opth Is Nonformulary - Can Patient Use From Home? Order Alternative? XX 12/31/24 00:00 Not Given CLARIFY [facility] Montelukast Sodium 10 mg 12/01/24 18:00 12/01/24 17:16 Montelukast Sodium 10 Mg Tablet PO 10 mg QPM [facility] Administration Non-Formulary Medication 1 drop 12/02/24 09:00 Cromolyn EACH EYE 01/01/25 08:59 DAILY [facility] Non-Formulary Medication 140 mg 12/31/24 09:00 Evolocumab [Latha Arambula] SUB-Q 01/30/25 08:59 MONTHLY [facility] Ondansetron HCl 4 mg 12/01/24 12:48 Ondansetron Inj 4 Mg/2 Ml Vial IV PUSH Q4H PRN Nausea Ondansetron HCl 4 mg 12/01/24 16:45 12/02/24 00:32 Ondansetron Hcl Odt 4 Mg Tablet PO 4 mg Q8H PRN Administration Nausea And Vomiting Oxybutynin Chloride 5 mg 12/01/24 17:00 12/01/24 17:15 Oxybutynin Chloride 5 Mg Tablet PO 5 mg TID [facility] Administration Pantoprazole Sodium 40 mg 12/02/24 09:00 Pantoprazole 40 Mg Tablet PO QAM [facility] Fluticasone/Salmeterol 2 puff 12/01/24 20:00 12/02/24 08:56 Fluticasone/Salmeterol 115-21 Mcg Inhaler 1 Puff INHALATION 2 puff Q12HRT [facility] Administration Sodium Chloride 1 gm 12/01/24 17:00 12/01/24 17:15 Sodium Chloride 1 Gm Tablet PO 1 gm BID [facility] Administration Sotalol HCl 40 mg 12/01/24 21:00 12/01/24 20:59 Sotalol Hcl 40 Mg Tablet PO 40 mg Q12HR [facility] Administration Sotalol HCl 80 mg 12/01/24 21:00 12/01/24 21:00 Sotalol Hcl 80 Mg Tablet PO 80 mg Q12HR [facility] Administration Trazodone HCl 50 mg 12/01/24 16:45 Trazodone Hcl 50 Mg Tablet PO HS PRN Insomnia Radiology Results: ITS Impressions Chest X-Ray 12/01/24 08:50 IMPRESSION: 1. No acute cardiopulmonary disease. Chest/Abdomen/Pelvis CTA 12/01/24 10:13 IMPRESSION: 1. Bilateral pyelonephritis. 2. Aortic atherosclerosis. No aneurysm or dissection. 3. Mild airspace opacities in paraspinal right lower lobe and mild groundglass opacities in peripheral right upper lobe and right lower lobe, consistent with pneumonia. Labs Labs: Laboratory Results - last 24 hr 12/01/24 12/01/24 12/01/24 08:27 08:28 10:04 Sodium 133 L Potassium 3.7 Chloride 99 Carbon Dioxide 25 Anion Gap 9 BUN 13 Creatinine 0.64 L 0.80 Estim Creat Clear Calc 75 61 Estimated GFR > 60 > 60 Glucose 160 H POC Capillary Glucose Hemoglobin A1c 5.5 Lactic Acid Calcium 9.2 Phosphorus 2.8 Magnesium 1.4 L Total Bilirubin 0.8 AST 15 ALT 14 Alkaline Phosphatase 110 Troponin I < 0.012 Total Protein 7.0 Albumin 3.7 Lipase 125 Urine Color Urine Appearance Urine pH Ur Specific Mcewen Urine Protein Urine Glucose (UA) Urine Ketones Ur Blood (Man) Urine Nitrate Urine Bilirubin Urine Urobilinogen Leukocyte Esterase Rfl Urine RBC Urine WBC Ur Squamous Epith Cells Urine Bacteria Urine Casts Influenza A (RT-PCR) Influenza B (RT-PCR) RSV (RT-PCR) SARS-CoV-2 RNA (RT-PCR) 12/01/24 12/01/24 12/01/24 11:04 11:23 13:00 Sodium Potassium Chloride Carbon Dioxide Anion Gap BUN Creatinine Estim Creat Clear Calc Estimated GFR Glucose POC Capillary Glucose Hemoglobin A1c Lactic Acid 1.3 Calcium Phosphorus Magnesium Total Bilirubin AST ALT Alkaline Phosphatase Troponin I < 0.012 Total Protein Albumin Lipase Urine Color Yellow Urine Appearance Clear Urine pH 8.0 Ur Specific Mce[place] 1.026 Urine Protein 1+ H Urine Glucose (UA) Negative Urine Ketones Negative Ur Blood (Man) Negative Urine Nitrate Negative Urine Bilirubin Negative Urine Urobilinogen 0.2 Leukocyte Esterase Rfl Negative Urine RBC 0-2 Urine WBC 0-5 Ur Squamous Epith Cells None seen Urine Bacteria None seen Urine Casts 0-2 Influenza A (RT-PCR) Negative Influenza B (RT-PCR) Negative RSV (RT-PCR) Negative SARS-CoV-2 RNA (RT-PCR) Positive A 12/01/24 12/01/24 12/01/24 15:25 16:50 20:16 Sodium Potassium Chloride Carbon Dioxide Anion Gap BUN Creatinine Estim Creat Clear Calc Estimated GFR Glucose POC Capillary Glucose 207 H 187 H Hemoglobin A1c Lactic Acid Calcium Phosphorus Magnesium Total Bilirubin AST ALT Alkaline Phosphatase Troponin I < 0.012 Total Protein Albumin Lipase Urine Color Urine Appearance Urine pH Ur Specific Mce[place] Urine Protein Urine Glucose (UA) Urine Ketones Ur Blood (Man) Urine Nitrate Urine Bilirubin Urine Urobilinogen Leukocyte Esterase Rfl Urine RBC Urine WBC Ur Squamous Epith Cells Urine Bacteria Urine Casts Influenza A (RT-PCR) Influenza B (RT-PCR) RSV (RT-PCR) SARS-CoV-2 RNA (RT-PCR) 12/02/24 07:42 Sodium Potassium Chloride Carbon Dioxide Anion Gap BUN Creatinine Estim Creat Clear Calc Estimated GFR Glucose POC Capillary Glucose 116 H Hemoglobin A1c Lactic Acid Calcium Phosphorus Magnesium Total Bilirubin AST ALT Alkaline Phosphatase Troponin I Total Protein Albumin Lipase Urine Color Urine Appearance Urine pH Ur Specific Mce[place] Urine Protein Urine Glucose (UA) Urine Ketones Ur Blood (Man) Urine Nitrate Urine Bilirubin Urine Urobilinogen Leukocyte Esterase Rfl Urine RBC Urine WBC Ur Squamous Epith Cells Urine Bacteria Urine Casts Influenza A (RT-PCR) Influenza B (RT-PCR) RSV (RT-PCR) SARS-CoV-2 RNA (RT-PCR)
[2024-12-02] MEDS: metFORMIN HCL 500 MG TABLET PO ×2 (10:09→17:51)
[2024-12-02] MEDS: APIXABAN 5 MG TABLET PO ×2 (10:09→21:02)
[2024-12-02] MEDS: FENOFIBRATE NANOCRYSTALLIZED 145 MG TABLET PO (10:11)
[2024-12-02] MEDS: PANTOPRAZOLE 40 MG TABLET PO (10:11)
[2024-12-02] MEDS: MAGNESIUM OXIDE 400 MG TABLET PO (10:12)
[2024-12-02] MEDS: SODIUM CHLORIDE 1 GM TABLET PO ×2 (10:12→17:52)
[2024-12-02] MEDS: SOTALOL HCL 80 MG TABLET PO ×2 (10:12→21:01)
[2024-12-02] MEDS: CLOPIDOGREL BISULFATE 75 MG TABLET PO (10:12)
[2024-12-02] MEDS: LORATADINE 10 MG TABLET PO (10:12)
[2024-12-02] MEDS: EZETIMIBE 10 MG TABLET PO (10:12)
[2024-12-02] MEDS: SOTALOL HCL 40 MG TABLET PO ×2 (10:13→21:01)
[2024-12-02] MEDS: dexAMETHasone 2 MG TABLET 6 MG PO (10:14)
[2024-12-02 10:19] LABS: Basophils Percent Auto 0.2 % (0.2-1.2); Eosinophils Percent Auto 0.2 % (0-4.4); Hematocrit 35.3 % (37.0-47.0); Hemoglobin 11.5 g/dL (12.0-15.0); Immature Granulocyte Absolute 0.05 K/mm3 (0.00-0.031); Immature Granulocyte Percent A 0.6 % (0-0.5); Lymphocytes Absolute Auto 2.33 K/mm3 (0.9-3.2); Lymphocytes Percent Auto 25.8 % (18.3-44.2); Mean Corpuscular HGB Conc 32.6 g/dl (32-36); Mean Corpuscular Hemoglobin 27.8 pg (26-34); Mean Corpuscular Volume 85.5 fl (80-100); Mean Platelet Volume 9.7 fl (7.4-10.4); Monocytes Absolute Auto 0.9 K/mm3 (0.1-0.6); Monocytes Percent Auto 9.6 % (2.6-8.5); Neutrophils Absolute Auto 5.8 K/mm3 (1.3-6.7); Neutrophils Percent Auto 63.6 % (45.5-73.1); Platelet Count Result 329 k/mm3 (150-375); Red Blood Count 4.13 M/mm3 (4.2-5.4)
[2024-12-02] MEDS: LORazepam (*CRX) 0.5 MG TABLET PO ×3 (10:20→21:01)
[2024-12-02 10:28] LABS: Anion Gap 7 mmol/L (4-12); Blood Urea Nitrogen 13 mg/dL (7-17); Calcium 9.2 mg/dL (8.4-10.2); Carbon Dioxide 27 mmol/L (22-30); Chloride 101 mmol/L (98-107); Estimated CRCL calculation 80 ml/min; Estimated Glomerular Filt Rate > 60; Glucose 163 mg/dL (65-110); Potassium 3.3 mmol/L (3.4-5.0); Sodium 135 mmol/L (137-145)
[2024-12-02] MEDS: ACETAMINOPHEN 325 MG TABLET 650 MG PO ×2 (10:39→17:47)
[2024-12-02] MEDS: LOSARTAN POTASSIUM 100 MG TABLET PO (10:41)
[2024-12-02 12:27] LABS: Glucose Point of Care 117 mg/dl (65-105)
[2024-12-02 17:04] LABS: Amphetamine Screen Urine Negative (Negative); Barbiturate Screen Urine Negative (Negative); Benzodiazepines Screen Urine Positive (Negative); Cannabinoid Screen Urine Positive (Negative); Cocaine Screen Urine Negative (Negative); Methadone Screen Urine Negative (Negative); Opiate Screen Urine Positive (Negative); Phencyclidine Screen Urine Negative (Negative)
[2024-12-02 17:12] LABS: Glucose Point of Care 179 mg/dl (65-105)
[2024-12-02] MEDS: FLUoxetine HCL 20 MG CAPSULE PO (17:51)
[2024-12-02] MEDS: MIDODRINE HCL 2.5 MG TABLET 5 MG PO (17:51)
[2024-12-02] MEDS: MONTELUKAST SODIUM 10 MG TABLET PO (17:51)
[2024-12-02 20:53] LABS: Glucose Point of Care 163 mg/dl (65-105)
[2024-12-02] MEDS: oxyBUTYnin CHLORIDE 5 MG TABLET PO (21:02)
--- NOTE | 2024-12-02 22:36 | P.PNIM_ITS ---
Progress Note: A&P Assessment and Plan (1) Hypertension associated with type 2 diabetes mellitus: Code(s): E11.59 - Type 2 diabetes mellitus with other circulatory complications; I15.2 - Hypertension secondary to endocrine disorders Status: Chronic Assessment and Plan: Home meds: Losartan 100mg, sotolol 120 BID Blood pressure elevated 128/107-199/104 --continuing home meds (2) Type 2 diabetes mellitus: Code(s): E11.9 - Type 2 diabetes mellitus without complications Status: Acute Assessment and Plan: Hypoglycemic protocol * Glucose checks ac and HS * Hold home oral hypoglycemics * Initiate SSI * Check A1C * Diabetic diet(8) History of bladder cancer: (3) Atrial fibrillation with rapid ventricular response: Code(s): I48.91 - Unspecified atrial fibrillation Status: Acute Assessment and Plan: * Continue Eliquis * Continue Sotalol (4) Peripheral arterial disease: Code(s): I73.9 - Peripheral vascular disease, unspecified Status: Acute Assessment and Plan: Continue plavix (5) Pyelonephritis: Code(s): N12 - Tubulo-interstitial nephritis, not specified as acute or chronic Status: Acute Assessment and Plan: CTA abd/pelvis showed bilateral pyelonephritis. Also seen prior admission UA no pyuria --Follow culture (6) Pneumonia: Code(s): J18.9 - Pneumonia, unspecified organism Status: Acute Assessment and Plan: * Continue Rocephin and Azithromycin * Continue Albuterol prn Q4 hrs and Scheduled Duoneb Q6 hrs. * Trend labs and VS. * IS * Not meeting sepsis criteria. Plan Time Spent With Patient Time: 59 minutes Subjective Date/time seen: 12/02/24 11:15 Interval history: Overall improving. Shortness of breath walking to the bathroom minimal Urine culture pending UDS positive for opiates, benzos, and cannibinoids. Not sleeping well, asked for something else for sleep Right chest pain this morning, likely musculoskeletal Hospital course: 63 y/o female hx DM, COPD, PAF on eliquis, GERD, CAD, Bladder cancer, bipolar disorder, recent COVID in october, admitted for CP, N/V for the past week. Recently discharged 11/18/24 after being cleared by cardiology for her CP with orders to continue Plavix for DEO in BLE, Eliquis for her A-fib, Sotalol for her fib and havel follow up with her on 12/08/24, discussed outpatient stress test. Pt states upon return home a few days later she broke her Nebulizer machine had has not been able to do her nebs. She reports a non-productive cough with tightness in the chest and epigastric pain as well. ER workup was significant for the following: Normal WBC's, renal function, trop and urine negative, EKG showing NSR 84 bpm without any ischemic changes, CXR NAD, but CTA C/A/P shows concern for potential Bilateral pyelonephritis, and RLL and RUL PNA. UA no evidence of infection Review of Systems Review of Systems: All systems reviewed & are unremarkable except as noted in HPI and below Exam Narrative: General - Awake and alert. No acute distress Eyes - PERRLA, EOM intact ENT - No thrush, No erythema Neck - No noticeable or palpable swelling Lymph Nodes - No lymphadenopathy Cardiovascular - RRR no m/r/g, no JVD Lungs: Clear to auscultation, No wheezing, use of accessory muscles, no crackles Skin - Skin warm and dry, no wounds or rashes Abdomen - Normal bowel sounds, abdomen soft and nontender Extremities - No edema, cyanosis or clubbing Musculoskeletal - 5/5 strength, normal range of motion, no swollen or erythematous joints. Neurological ? Alert and oriented x 3, CN 2-12 grossly intact. Psych: Normal mood and affect Objective Data Vital Signs Vital Signs: Vital Signs - 24 hr 12/02/24 02:49 12/02/24 02:57 12/02/24 05:29 Temperature 97.9 F Pulse Rate 80 81 85 Respiratory Rate 20 20 12 Blood Pressure 105/62 Pulse Oximetry 100 Oxygen Delivery Fraction of Inspired Oxygen 12/02/24 08:56 12/02/24 08:56 12/02/24 09:02 Temperature Pulse Rate 81 80 Respiratory Rate 20 20 Blood Pressure Pulse Oximetry 99 Oxygen Delivery Room Air Fraction of Inspired Oxygen 21 12/02/24 10:12 12/02/24 10:13 12/02/24 10:35 Temperature Pulse Rate 80 80 Respiratory Rate Blood Pressure 140/90 Pulse Oximetry Oxygen Delivery Fraction of Inspired Oxygen 12/02/24 14:00 12/02/24 15:16 12/02/24 15:16 Temperature 97.7 F Pulse Rate 81 87 Respiratory Rate 24 H 20 Blood Pressure 109/72 Pulse Oximetry 100 98 Oxygen Delivery Room Air Fraction of Inspired Oxygen 21 12/02/24 15:30 12/02/24 22:00 12/02/24 22:11 Temperature 98.1 F Pulse Rate 88 82 80 Respiratory Rate 20 18 20 Blood Pressure 123/76 Pulse Oximetry 94 Oxygen Delivery Fraction of Inspired Oxygen 12/02/24 22:23 Temperature Pulse Rate 78 Respiratory Rate 20 Blood Pressure Pulse Oximetry Oxygen Delivery Fraction of Inspired Oxygen Intake/Output Intake/Output: Intake & Output 11/29/24 11/30/24 12/01/24 12/02/24 23:59 23:59 23:59 23:59 Intake Total 1640 1250 Output Total 700 Balance 1640 550 Meds/Results Medications: Active Medications Generic Name Dose Route Start Last Admin Trade Name Freq PRN Reason Stop Dose Admin Acetaminophen 650 mg 12/01/24 15:48 12/02/24 17:47 Acetaminophen 325 Mg Tablet PO 650 mg Q4H PRN Administration Mild Pain (1-3) or Fever Hydrocodone Bitart/Acetaminophen 1 tab 12/01/24 16:45 12/02/24 21:07 Hydrocodone/Acetaminophen (*Crx) 5-325 Mg Tablet PO 1 tab Q8H PRN Administration Pain Rated 4-6 Albuterol 2.5 mg 12/01/24 16:45 Albuterol Sulfate Neb 2.5 Mg/3 Ml Inh INHALATION Q6H PRN shortness of breath or wheezing Albuterol 2 puff 12/01/24 16:45 Albuterol Sulfate (*Sp) Aerosol 1 Puff INHALATION QID PRN shortness of breath or wheezing Albuterol/Ipratropium 3 ml 12/01/24 14:00 12/02/24 22:10 Ipratropium 0.5 Mg/Albuterol Sulfate 2.5 Mg Ampul.Neb 3 Ml INHALATION 3 ml Q6HRT LANCE Administration Apixaban 5 mg 12/01/24 21:00 12/02/24 21:02 Apixaban 5 Mg Tablet PO 5 mg Q12HR LANCE Administration Clopidogrel Bisulfate 75 mg 12/02/24 09:00 12/02/24 10:12 Clopidogrel Bisulfate 75 Mg Tablet PO 75 mg DAILY LANCE Administration Cyclobenzaprine HCl 10 mg 12/01/24 16:47 Cyclobenzaprine Hcl 10 Mg Tablet PO TID PRN Muscle/Joint Pain Dexamethasone 6 mg 12/02/24 09:40 12/02/24 10:14 Dexamethasone 2 Mg Tablet PO 12/11/24 08:01 6 mg DAILY@0800 LANCE Administration Dextrose 12.5 gm 12/01/24 16:38 Dextrose 50% 25 Gm/50 Ml Syringe IV PUSH PRN PRN Hypoglycemia Protocol Ezetimibe 10 mg 12/02/24 09:00 12/02/24 10:12 Ezetimibe 10 Mg Tablet PO 10 mg DAILY LANCE Administration Ergocalciferol 50,000 units 12/11/24 09:00 Ergocalciferol 50,000 Units Capsule PO Mo@0900 LANCE Fenofibrate 145 mg 12/02/24 09:00 12/02/24 10:11 Fenofibrate Nanocrystallized 145 Mg Tablet PO 145 mg QAM LANCE Administration Fentanyl Citrate 25 mcg 12/01/24 15:48 12/01/24 16:25 Fentanyl Citrate Inj (*Crx) 100 Mcg/2 Ml Vial IV PUSH 25 mcg Q4H PRN Administration Pain Rated 7-10 Fluoxetine HCl 20 mg 12/01/24 18:00 12/02/24 17:51 Fluoxetine Hcl 20 Mg Capsule PO 20 mg QPM LANCE Administration Fluticasone Propionate 1 spray 12/02/24 09:00 12/02/24 17:53 Fluticasone Propionate 0.05% Na Spr 16 Gm Btl (*Bkc) NASAL Not Given DAILY [facility] Glucagon 1 mg 12/01/24 16:38 Glucagon For Inj 1 Mg Vial IM PRN PRN Hypoglycemia Protocol Glucose 15 gm 12/01/24 16:38 Glucose Oral Gel 15 Gm Of Glucse In 37.5 Gm Tube PO PRN PRN Hypoglycemia Protocol Hydralazine HCl 10 mg 12/01/24 14:59 Hydralazine Hcl 20 Mg/Ml Vial IV PUSH Q8H PRN Blood Pressure - High Hydrocortisone 1 applic 12/01/24 17:01 Hydrocortisone 2.5% Cream 30 Gm Tube RECTAL DAILY PRN hemorrhoids Ceftriaxone Sodium 1 gm in 50 mls @ 100 mls/hr 12/02/24 09:00 12/02/24 09:45 Rocephin 1 Gm/Ns 50 Ml IVPB 100 mls/hr Q24H LANCE Administration Azithromycin 500 mg in 250 mls @ 250 mls/hr 12/02/24 09:00 12/02/24 08:35 Zithromax IVPB 250 mls/hr Q24H LANCE Administration Dextrose 1,000 mls @ 100 mls/hr 12/01/24 16:38 Dextrose 5% 1,000 Ml IVPB PRN PRN Hypoglycemia Protocol Ibuprofen 600 mg 12/01/24 15:48 Ibuprofen 600 Mg Tablet PO Q6H PRN Pain Rated 4-6 Insulin Aspart 2 - 5 units 12/01/24 17:00 12/02/24 17:49 Insulin Aspart (*Bkc) 100 Units/Ml SUB-Q Not Given TIDWM LANCE Protocol Insulin Aspart 1 - 2 units 12/01/24 21:00 12/02/24 21:03 Insulin Aspart (*Bkc) 100 Units/Ml SUB-Q Not Given HS LANCE Protocol Loratadine 10 mg 12/02/24 09:00 12/02/24 10:12 Loratadine 10 Mg Tablet PO 10 mg QAM LANCE Administration Lorazepam 0.5 mg 12/01/24 17:00 12/02/24 21:01 Lorazepam (*Crx) 0.5 Mg Tablet PO 0.5 mg TID LANCE Administration Losartan Potassium 100 mg 12/02/24 09:00 12/02/24 10:41 Losartan Potassium 100 Mg Tablet PO 100 mg DAILY LANCE Administration Magnesium Oxide 400 mg 12/02/24 09:00 12/02/24 10:12 Magnesium Oxide 400 Mg Tablet PO 400 mg DAILY LANCE Administration Metformin HCl 500 mg 12/01/24 17:00 12/02/24 17:51 Metformin Hcl 500 Mg Tablet PO 500 mg BID LANCE Administration Metoclopramide HCl 10 mg 12/01/24 16:45 Metoclopramide Hcl 10 Mg Tablet PO BID PRN nausea and vomiting Midodrine 5 mg 12/01/24 17:00 12/02/24 17:51 Midodrine Hcl 2.5 Mg Tablet PO 5 mg BID LANCE Administration Miscellaneous Information 0 each 12/01/24 00:01 12/02/24 19:29 Evolocumab (Repatha Sureclick) Is Nonformulary - Can Patient Use From Home? Hold While Her XX 12/31/24 00:00 Not Given CLARIFY LANCE Miscellaneous Information 0 each 12/01/24 00:01 12/02/24 19:29 Cromolyn Opth Is Nonformulary - Can Patient Use From Home? Order Alternative? XX 12/31/24 00:00 Not Given CLARIFY LANCE Montelukast Sodium 10 mg 12/01/24 18:00 12/02/24 17:51 Montelukast Sodium 10 Mg Tablet PO 10 mg QPM LANCE Administration Non-Formulary Medication 1 drop 12/02/24 09:00 Cromolyn EACH EYE 01/01/25 08:59 DAILY [facility] Non-Formulary Medication 140 mg 12/31/24 09:00 Evolocumab [Repatha Sureclick] SUB-Q 01/30/25 08:59 MONTHLY [facility] Ondansetron HCl 4 mg 12/01/24 12:48 Ondansetron Inj 4 Mg/2 Ml Vial IV PUSH Q4H PRN Nausea Ondansetron HCl 4 mg 12/01/24 16:45 12/02/24 00:32 Ondansetron Hcl Odt 4 Mg Tablet PO 4 mg Q8H PRN Administration Nausea And Vomiting Oxybutynin Chloride 5 mg 12/01/24 17:00 12/02/24 21:02 Oxybutynin Chloride 5 Mg Tablet PO 5 mg TID LANCE Administration Pantoprazole Sodium 40 mg 12/02/24 09:00 12/02/24 10:11 Pantoprazole 40 Mg Tablet PO 40 mg QAM [facility] Administration Fluticasone/Salmeterol 2 puff 12/01/24 20:00 12/02/24 22:11 Fluticasone/Salmeterol 115-21 Mcg Inhaler 1 Puff INHALATION 2 puff Q12HRT LANCE Administration Sodium Chloride 1 gm 12/01/24 17:00 12/02/24 17:52 Sodium Chloride 1 Gm Tablet PO 1 gm BID LANCE Administration Sotalol HCl 40 mg 12/01/24 21:00 12/02/24 21:01 Sotalol Hcl 40 Mg Tablet PO 40 mg Q12HR LANCE Administration Sotalol HCl 80 mg 12/01/24 21:00 12/02/24 21:01 Sotalol Hcl 80 Mg Tablet PO 80 mg Q12HR LANCE Administration Trazodone HCl 50 mg 12/01/24 16:45 Trazodone Hcl 50 Mg Tablet PO HS PRN Insomnia Radiology Results: ITS Impressions Chest X-Ray 12/01/24 08:50 IMPRESSION: 1. No acute cardiopulmonary disease. Chest/Abdomen/Pelvis CTA 12/01/24 10:13 IMPRESSION: 1. Bilateral pyelonephritis. 2. Aortic atherosclerosis. No aneurysm or dissection. 3. Mild airspace opacities in paraspinal right lower lobe and mild groundglass opacities in peripheral right upper lobe and right lower lobe, consistent with pneumonia. Labs Labs: Laboratory Results - last 24 hr 12/02/24 12/02/24 12/02/24 07:42 10:10 12:00 WBC 9.0 RBC 4.13 L Hgb 11.5 L Hct 35.3 L MCV 85.5 MCH 27.8 MCHC 32.6 RDW 15.0 H Plt Count 329 MPV 9.7 Immature Gran % (Auto) 0.6 H Neut % (Auto) 63.6 Lymph % (Auto) 25.8 Preston % (Auto) 9.6 H Eos % (Auto) 0.2 Baso % (Auto) 0.2 Lymph # (Auto) 2.33 Preston # (Auto) 0.9 H Eos # (Auto) 0.0 Baso # (Auto) 0.0 Abs Immat Gran (auto) 0.05 H Absolute Neuts (auto) 5.8 Absolute Nucleated RBC 0.000 Nucleated RBC % 0.0 Sodium 135 L Potassium 3.3 L Chloride 101 Carbon Dioxide 27 Anion Gap 7 BUN 13 Creatinine 0.60 L Estim Creat Clear Calc 80 Estimated GFR > 60 Glucose 163 H POC Capillary Glucose 116 H 117 H Calcium 9.2 Urine Opiates Screen Urine Methadone Screen Ur Barbiturates Screen Ur Phencyclidine Scrn Ur Amphetamine Screen U Benzodiazepines Scrn Urine Cocaine Screen U Cannabinoids Screen 12/02/24 12/02/24 12/02/24 16:40 16:54 20:15 WBC RBC Hgb Hct MCV MCH MCHC RDW Plt Count MPV Immature Gran % (Auto) Neut % (Auto) Lymph % (Auto) Preston % (Auto) Eos % (Auto) Baso % (Auto) Lymph # (Auto) Preston # (Auto) Eos # (Auto) Baso # (Auto) Abs Immat Gran (auto) Absolute Neuts (auto) Absolute Nucleated RBC Nucleated RBC % Sodium Potassium Chloride Carbon Dioxide Anion Gap BUN Creatinine Estim Creat Clear Calc Estimated GFR Glucose POC Capillary Glucose 179 H 163 H Calcium Urine Opiates Screen Positive A Urine Methadone Screen Negative Ur Barbiturates Screen Negative Ur Phencyclidine Scrn Negative Ur Amphetamine Screen Negative U Benzodiazepines Scrn Positive A Urine Cocaine Screen Negative U Cannabinoids Screen Positive A Quality VTE Prophylaxis VTE prophylaxis: pharmacologic ordered Hospitalist MIPS Advance Care Plan I have confirmed that the patient's Advanced Care Plan is present, code status is documented, or surrogate decision maker is listed in patient medical record.: Yes Medication Reconciliation I have utilized all available resources to obtain, update and review the patients current medications (includes all prescriptions, OTC, herbals, cleopatra abis, and nutritional supplements).: Yes
[2024-12-02] MEDS: traZODone HCL 50 MG TABLET PO (23:08)
[2024-12-03] VITALS (12 sets, daily range): BP systolic 103–144; BP diastolic 69–85; PULSE 65–82; RESP 12–20; TEMP 36.2–36.4; O2SAT 98–100
[2024-12-03] MEDS: IPRATROPIUM 0.5 MG/ALBUTEROL SULFATE 2.5 MG AMPUL.NEB 3 ML INHALATION ×4 (03:07→20:32)
[2024-12-03 06:44] LABS: Anion Gap 6 mmol/L (4-12); Blood Urea Nitrogen 20 mg/dL (7-17); Calcium 8.5 mg/dL (8.4-10.2); Carbon Dioxide 25 mmol/L (22-30); Chloride 103 mmol/L (98-107); Estimated CRCL calculation 71 ml/min; Estimated Glomerular Filt Rate > 60; Glucose 129 mg/dL (65-110); Potassium 4.1 mmol/L (3.4-5.0); Sodium 134 mmol/L (137-145)
[2024-12-03 06:56] LABS: Basophils Percent Auto 0.3 % (0.2-1.2); Eosinophils Percent Auto 0.1 % (0-4.4); Hematocrit 31.2 % (37.0-47.0); Hemoglobin 10.1 g/dL (12.0-15.0); Immature Granulocyte Absolute 0.09 K/mm3 (0.00-0.031); Immature Granulocyte Percent A 1.2 % (0-0.5); Lymphocytes Absolute Auto 1.92 K/mm3 (0.9-3.2); Lymphocytes Percent Auto 24.7 % (18.3-44.2); Mean Corpuscular HGB Conc 32.4 g/dl (32-36); Mean Corpuscular Hemoglobin 28.5 pg (26-34); Mean Corpuscular Volume 88.1 fl (80-100); Mean Platelet Volume 9.9 fl (7.4-10.4); Monocytes Absolute Auto 0.6 K/mm3 (0.1-0.6); Monocytes Percent Auto 7.9 % (2.6-8.5); Neutrophils Absolute Auto 5.1 K/mm3 (1.3-6.7); Neutrophils Percent Auto 65.8 % (45.5-73.1); Platelet Count Result 281 k/mm3 (150-375); Red Blood Count 3.54 M/mm3 (4.2-5.4); Red Cell Distribution Width 14.7 % (11.5-14.5); White Blood Count 7.8 K/mm3 (4.5-10.0)
[2024-12-03 07:36] LABS: Glucose Point of Care 112 mg/dl (65-105)
[2024-12-03] MEDS: FLUTICASONE/SALMETEROL 115-21 MCG INHALER 1 PUFF 2 PUFF INHALATION ×2 (08:34→20:33)
--- NOTE | 2024-12-03 09:56 | P.PNIM_ITS ---
Progress Note: A&P Assessment and Plan (1) Hypertension associated with type 2 diabetes mellitus: Code(s): E11.59 - Type 2 diabetes mellitus with other circulatory complications; I15.2 - Hypertension secondary to endocrine disorders Status: Chronic Assessment and Plan: Home meds: Losartan 100mg, sotolol 120 BID. reports mild dizziness, likely releated to blood pressure Blood pressure elevated 128/107-199/104 -- home meds resumed but on midodrine and losartan --Stop midodrine --Reduce losartan to 50mg daily (2) Type 2 diabetes mellitus: Code(s): E11.9 - Type 2 diabetes mellitus without complications Status: Acute Assessment and Plan: Hypoglycemic protocol * Glucose checks ac and HS * Hold home oral hypoglycemics * Initiate SSI * Check A1C * Diabetic diet(8) History of bladder cancer: (3) Atrial fibrillation with rapid ventricular response: Code(s): I48.91 - Unspecified atrial fibrillation Status: Acute Assessment and Plan: * Continue Eliquis * Continue Sotalol (4) Peripheral arterial disease: Code(s): I73.9 - Peripheral vascular disease, unspecified Status: Acute Assessment and Plan: Continue plavix (5) Pyelonephritis: Code(s): N12 - Tubulo-interstitial nephritis, not specified as acute or chronic Status: Acute Assessment and Plan: CTA abd/pelvis showed bilateral pyelonephritis. Also seen prior admission UA no pyuria. Urine culture no growth --Continuing antibiotics for pneumonia, will also cover pyelonephritis, but given negative cultures, imaging findings may not be infection (6) Pneumonia: Code(s): J18.9 - Pneumonia, unspecified organism Status: Acute Assessment and Plan: * Change rocephin to cefdinir tomorrow. Doesn't tolerate Augmentin well d/t gastric complaints. Quinolones interact with sotolol * Continue Azithromycin, last dose tomorrow * Change duonebs to prn * Trend labs and VS. * IS * Not wheezing s/p dexamethasone x1 dose stopped * Not meeting sepsis criteria. Plan Time Spent With Patient Time: 64 minutes Subjective Date/time seen: 12/03/24 09:56 Interval history: Overall improving. Shortness of breath walking to the bathroom minimal. No wheezing on exam Urine culture no growth. Urine visibly clear UDS positive for opiates, benzos, and cannibinoids. Hospital course: 63 y/o female hx DM, COPD, PAF on eliquis, GERD, CAD, Bladder cancer, bipolar disorder, recent COVID in october, admitted for CP, N/V for the past week. Recently discharged 11/18/24 after being cleared by cardiology for her CP with orders to continue Plavix for DEO in BLE, Eliquis for her A-fib, Sotalol for her fib and havel follow up with her on 12/08/24, discussed outpatient stress test. Pt states upon return home a few days later she broke her Nebulizer machine had has not been able to do her nebs. She reports a non-productive cough with tightness in the chest and epigastric pain as well. ER workup was significant for the following: Normal WBC's, renal function, trop and urine negative, EKG showing NSR 84 bpm without any ischemic changes, CXR NAD, but CTA C/A/P shows concern for potential Bilateral pyelonephritis, and RLL and RUL PNA. UA no evidence of infection Review of Systems Review of Systems: All systems reviewed & are unremarkable except as noted in HPI and below Exam Narrative: General - Awake and alert. No acute distress Eyes - PERRLA, EOM intact ENT - No thrush, No erythema Neck - No noticeable or palpable swelling Lymph Nodes - No lymphadenopathy Cardiovascular - RRR no m/r/g, no JVD Lungs: Clear to auscultation, No wheezing, use of accessory muscles, no crackles Skin - Skin warm and dry, no wounds or rashes Abdomen - Normal bowel sounds, abdomen soft and nontender Extremities - No edema, cyanosis or clubbing Musculoskeletal - 5/5 strength, normal range of motion, no swollen or erythematous joints. Neurological ? Alert and oriented x 3, CN 2-12 grossly intact. Psych: Normal mood and affect Objective Data Vital Signs Vital Signs: Vital Signs - 24 hr 12/02/24 10:12 12/02/24 10:13 12/02/24 10:35 Temperature Pulse Rate 80 80 Respiratory Rate Blood Pressure 140/90 Pulse Oximetry Oxygen Delivery Fraction of Inspired Oxygen 12/02/24 14:00 12/02/24 15:16 12/02/24 15:16 Temperature 97.7 F Pulse Rate 81 87 Respiratory Rate 24 H 20 Blood Pressure 109/72 Pulse Oximetry 100 98 Oxygen Delivery Room Air Fraction of Inspired Oxygen 12/02/24 15:30 12/02/24 20:00 12/02/24 22:00 Temperature 98.1 F Pulse Rate 88 82 Respiratory Rate 20 18 Blood Pressure 123/76 Pulse Oximetry 94 Oxygen Delivery Room Air Fraction of Inspired Oxygen 12/02/24 22:11 12/02/24 22:23 12/03/24 03:07 Temperature Pulse Rate 80 78 82 Respiratory Rate 20 20 20 Blood Pressure Pulse Oximetry Oxygen Delivery Fraction of Inspired Oxygen 12/03/24 03:15 12/03/24 06:00 12/03/24 08:34 Temperature 97.6 F Pulse Rate 79 79 Respiratory Rate 20 18 Blood Pressure 144/85 H Pulse Oximetry 99 98 Oxygen Delivery Room Air Fraction of Inspired Oxygen 12/03/24 08:34 Temperature Pulse Rate 66 Respiratory Rate 20 Blood Pressure Pulse Oximetry Oxygen Delivery Fraction of Inspired Oxygen Intake/Output Intake/Output: Intake & Output 11/30/24 12/01/24 12/02/24 12/03/24 23:59 23:59 23:59 23:59 Intake Total 1640 1250 540 Output Total 700 Balance 1640 550 540 Meds/Results Medications: Active Medications Generic Name Dose Route Start Last Admin Trade Name Freq PRN Reason Stop Dose Admin Acetaminophen 650 mg 12/01/24 15:48 12/02/24 17:47 Acetaminophen 325 Mg Tablet PO 650 mg Q4H PRN Administration Mild Pain (1-3) or Fever Hydrocodone Bitart/Acetaminophen 1 tab 12/01/24 16:45 12/02/24 21:07 Hydrocodone/Acetaminophen (*Crx) 5-325 Mg Tablet PO 1 tab Q8H PRN Administration Pain Rated 4-6 Albuterol 2.5 mg 12/01/24 16:45 Albuterol Sulfate Neb 2.5 Mg/3 Ml Inh INHALATION Q6H PRN shortness of breath or wheezing Albuterol 2 puff 12/01/24 16:45 Albuterol Sulfate (*Sp) Aerosol 1 Puff INHALATION QID PRN shortness of breath or wheezing Albuterol/Ipratropium 3 ml 12/01/24 14:00 12/03/24 08:35 Ipratropium 0.5 Mg/Albuterol Sulfate 2.5 Mg Ampul.Neb 3 Ml INHALATION 3 ml Q6HRT LANCE Administration Apixaban 5 mg 12/01/24 21:00 12/02/24 21:02 Apixaban 5 Mg Tablet PO 5 mg Q12HR LANCE Administration Clopidogrel Bisulfate 75 mg 12/02/24 09:00 12/02/24 10:12 Clopidogrel Bisulfate 75 Mg Tablet PO 75 mg DAILY LANCE Administration Cyclobenzaprine HCl 10 mg 12/01/24 16:47 Cyclobenzaprine Hcl 10 Mg Tablet PO TID PRN Muscle/Joint Pain Dexamethasone 6 mg 12/02/24 09:40 12/02/24 10:14 Dexamethasone 2 Mg Tablet PO 12/11/24 08:01 6 mg DAILY@0800 LANCE Administration Dextrose 12.5 gm 12/01/24 16:38 Dextrose 50% 25 Gm/50 Ml Syringe IV PUSH PRN PRN Hypoglycemia Protocol Ezetimibe 10 mg 12/02/24 09:00 12/02/24 10:12 Ezetimibe 10 Mg Tablet PO 10 mg DAILY LANCE Administration Ergocalciferol 50,000 units 12/11/24 09:00 Ergocalciferol 50,000 Units Capsule PO Mo@0900 [facility] Fenofibrate 145 mg 12/02/24 09:00 12/02/24 10:11 Fenofibrate Nanocrystallized 145 Mg Tablet PO 145 mg QAM LANCE Administration Fentanyl Citrate 25 mcg 12/01/24 15:48 12/01/24 16:25 Fentanyl Citrate Inj (*Crx) 100 Mcg/2 Ml Vial IV PUSH 25 mcg Q4H PRN Administration Pain Rated 7-10 Fluoxetine HCl 20 mg 12/01/24 18:00 12/02/24 17:51 Fluoxetine Hcl 20 Mg Capsule PO 20 mg QPM LACNE Administration Fluticasone Propionate 1 spray 12/02/24 09:00 12/02/24 17:53 Fluticasone Propionate 0.05% Na Spr 16 Gm Btl (*Bkc) NASAL Not Given DAILY [facility] Glucagon 1 mg 12/01/24 16:38 Glucagon For Inj 1 Mg Vial IM PRN PRN Hypoglycemia Protocol Glucose 15 gm 12/01/24 16:38 Glucose Oral Gel 15 Gm Of Glucse In 37.5 Gm Tube PO PRN PRN Hypoglycemia Protocol Hydralazine HCl 10 mg 12/01/24 14:59 Hydralazine Hcl 20 Mg/Ml Vial IV PUSH Q8H PRN Blood Pressure - High Hydrocortisone 1 applic 12/01/24 17:01 Hydrocortisone 2.5% Cream 30 Gm Tube RECTAL DAILY PRN hemorrhoids Ceftriaxone Sodium 1 gm in 50 mls @ 100 mls/hr 12/02/24 09:00 12/02/24 09:45 Rocephin 1 Gm/Ns 50 Ml IVPB 100 mls/hr Q24H LANCE Administration Azithromycin 500 mg in 250 mls @ 250 mls/hr 12/02/24 09:00 12/02/24 08:35 Zithromax IVPB 250 mls/hr Q24H LANCE Administration Dextrose 1,000 mls @ 100 mls/hr 12/01/24 16:38 Dextrose 5% 1,000 Ml IVPB PRN PRN Hypoglycemia Protocol Ibuprofen 600 mg 12/01/24 15:48 Ibuprofen 600 Mg Tablet PO Q6H PRN Pain Rated 4-6 Insulin Aspart 2 - 5 units 12/01/24 17:00 12/02/24 17:49 Insulin Aspart (*Bkc) 100 Units/Ml SUB-Q Not Given TIDWM LANCE Protocol Insulin Aspart 1 - 2 units 12/01/24 21:00 12/02/24 21:03 Insulin Aspart (*Bkc) 100 Units/Ml SUB-Q Not Given HS LANCE Protocol Loratadine 10 mg 12/02/24 09:00 12/02/24 10:12 Loratadine 10 Mg Tablet PO 10 mg QAM LANCE Administration Lorazepam 0.5 mg 12/02/24 22:51 Lorazepam (*Crx) 0.5 Mg Tablet PO TID PRN Anxiety Losartan Potassium 100 mg 12/02/24 09:00 12/02/24 10:41 Losartan Potassium 100 Mg Tablet PO 100 mg DAILY LANCE Administration Magnesium Oxide 400 mg 12/02/24 09:00 12/02/24 10:12 Magnesium Oxide 400 Mg Tablet PO 400 mg DAILY LANCE Administration Melatonin 5 mg 12/02/24 22:49 Melatonin 5 Mg Tablet PO HS PRN Insomnia Metformin HCl 500 mg 12/01/24 17:00 12/02/24 17:51 Metformin Hcl 500 Mg Tablet PO 500 mg BID LANCE Administration Metoclopramide HCl 10 mg 12/01/24 16:45 Metoclopramide Hcl 10 Mg Tablet PO BID PRN nausea and vomiting Midodrine 5 mg 12/01/24 17:00 12/02/24 17:51 Midodrine Hcl 2.5 Mg Tablet PO 5 mg BID LANCE Administration Miscellaneous Information 0 each 12/01/24 00:01 12/03/24 00:05 Evolocumab (atha Johnclick) Is Nonformulary - Can Patient Use From Home? Hold While Her XX 12/31/24 00:00 Not Given CLARIFY [facility] Miscellaneous Information 0 each 12/01/24 00:01 12/03/24 00:05 Cromolyn Opth Is Nonformulary - Can Patient Use From Home? Order Alternative? XX 12/31/24 00:00 Not Given CLARIFY LANCE Montelukast Sodium 10 mg 12/01/24 18:00 12/02/24 17:51 Montelukast Sodium 10 Mg Tablet PO 10 mg QPM LANCE Administration Non-Formulary Medication 1 drop 12/02/24 09:00 Cromolyn EACH EYE 01/01/25 08:59 DAILY [facility] Non-Formulary Medication 140 mg 12/31/24 09:00 Evolocumab [Reagana Ralf] SUB-Q 01/30/25 08:59 MONTHLY [facility] Ondansetron HCl 4 mg 12/01/24 12:48 Ondansetron Inj 4 Mg/2 Ml Vial IV PUSH Q4H PRN Nausea Ondansetron HCl 4 mg 12/01/24 16:45 12/02/24 00:32 Ondansetron Hcl Odt 4 Mg Tablet PO 4 mg Q8H PRN Administration Nausea And Vomiting Oxybutynin Chloride 5 mg 12/01/24 17:00 12/02/24 21:02 Oxybutynin Chloride 5 Mg Tablet PO 5 mg TID [facility] Administration Pantoprazole Sodium 40 mg 12/02/24 09:00 12/02/24 10:11 Pantoprazole 40 Mg Tablet PO 40 mg QAM LANCE Administration Fluticasone/Salmeterol 2 puff 12/01/24 20:00 12/03/24 08:34 Fluticasone/Salmeterol 115-21 Mcg Inhaler 1 Puff INHALATION 2 puff Q12HRT ALNCE Administration Sodium Chloride 1 gm 12/01/24 17:00 12/02/24 17:52 Sodium Chloride 1 Gm Tablet PO 1 gm BID LANCE Administration Sotalol HCl 40 mg 12/01/24 21:00 12/02/24 21:01 Sotalol Hcl 40 Mg Tablet PO 40 mg Q12HR LANCE Administration Sotalol HCl 80 mg 12/01/24 21:00 12/02/24 21:01 Sotalol Hcl 80 Mg Tablet PO 80 mg Q12HR LANCE Administration Trazodone HCl 50 mg 12/01/24 16:45 12/02/24 23:08 Trazodone Hcl 50 Mg Tablet PO 50 mg HS PRN Administration Insomnia Radiology Results: ITS Impressions Chest X-Ray 12/01/24 08:50 IMPRESSION: 1. No acute cardiopulmonary disease. Chest/Abdomen/Pelvis CTA 12/01/24 10:13 IMPRESSION: 1. Bilateral pyelonephritis. 2. Aortic atherosclerosis. No aneurysm or dissection. 3. Mild airspace opacities in paraspinal right lower lobe and mild groundglass opacities in peripheral right upper lobe and right lower lobe, consistent with pneumonia. Labs Labs: Laboratory Results - last 24 hr 12/02/24 12/02/24 12/02/24 10:10 12:00 16:40 WBC 9.0 RBC 4.13 L Hgb 11.5 L Hct 35.3 L MCV 85.5 MCH 27.8 MCHC 32.6 RDW 15.0 H Plt Count 329 MPV 9.7 Immature Gran % (Auto) 0.6 H Neut % (Auto) 63.6 Lymph % (Auto) 25.8 [place] % (Auto) 9.6 H Eos % (Auto) 0.2 Baso % (Auto) 0.2 Lymph # (Auto) 2.33 [place] # (Auto) 0.9 H Eos # (Auto) 0.0 Baso # (Auto) 0.0 Abs Immat Gran (auto) 0.05 H Absolute Neuts (auto) 5.8 Absolute Nucleated RBC 0.000 Nucleated RBC % 0.0 Sodium 135 L Potassium 3.3 L Chloride 101 Carbon Dioxide 27 Anion Gap 7 BUN 13 Creatinine 0.60 L Estim Creat Clear Calc 80 Estimated GFR > 60 Glucose 163 H POC Capillary Glucose 117 H Calcium 9.2 Urine Opiates Screen Positive A Urine Methadone Screen Negative Ur Barbiturates Screen Negative Ur Phencyclidine Scrn Negative Ur Amphetamine Screen Negative U Benzodiazepines Scrn Positive A Urine Cocaine Screen Negative U Cannabinoids Screen Positive A 12/02/24 12/02/24 12/03/24 16:54 20:15 06:10 WBC 7.8 RBC 3.54 L Hgb 10.1 L Hct 31.2 L MCV 88.1 MCH 28.5 MCHC 32.4 RDW 14.7 H Plt Count 281 MPV 9.9 Immature Gran % (Auto) 1.2 H Neut % (Auto) 65.8 Lymph % (Auto) 24.7 [place] % (Auto) 7.9 Eos % (Auto) 0.1 Baso % (Auto) 0.3 Lymph # (Auto) 1.92 [place] # (Auto) 0.6 Eos # (Auto) 0.0 Baso # (Auto) 0.0 Abs Immat Gran (auto) 0.09 H Absolute Neuts (auto) 5.1 Absolute Nucleated RBC 0.000 Nucleated RBC % 0.0 Sodium Potassium Chloride Carbon Dioxide Anion Gap BUN Creatinine Estim Creat Clear Calc Estimated GFR Glucose POC Capillary Glucose 179 H 163 H Calcium Urine Opiates Screen Urine Methadone Screen Ur Barbiturates Screen Ur Phencyclidine Scrn Ur Amphetamine Screen U Benzodiazepines Scrn Urine Cocaine Screen U Cannabinoids Screen 12/03/24 12/03/24 06:11 07:27 WBC RBC Hgb Hct MCV MCH MCHC RDW Plt Count MPV Immature Gran % (Auto) Neut % (Auto) Lymph % (Auto) [place] % (Auto) Eos % (Auto) Baso % (Auto) Lymph # (Auto) [place] # (Auto) Eos # (Auto) Baso # (Auto) Abs Immat Gran (auto) Absolute Neuts (auto) Absolute Nucleated RBC Nucleated RBC % Sodium 134 L Potassium 4.1 Chloride 103 Carbon Dioxide 25 Anion Gap 6 BUN 20 H Creatinine 0.68 L Estim Creat Clear Calc 71 Estimated GFR > 60 Glucose 129 H POC Capillary Glucose 112 H Calcium 8.5 Urine Opiates Screen Urine Methadone Screen Ur Barbiturates Screen Ur Phencyclidine Scrn Ur Amphetamine Screen U Benzodiazepines Scrn Urine Cocaine Screen U Cannabinoids Screen Quality VTE Prophylaxis VTE prophylaxis: pharmacologic ordered Hospitalist MIPS Advance Care Plan I have confirmed that the patient's Advanced Care Plan is present, code status is documented, or surrogate decision maker is listed in patient medical record.: Yes Medication Reconciliation I have utilized all available resources to obtain, update and review the patients current medications (includes all prescriptions, OTC, herbals, cannabis, and nutritional supplements).: Yes
[2024-12-03] MEDS: AZITHROMYCIN 500 MG/NS 250 ML 500 MG/250 ML BAG 250 MG IVPB (10:21)
[2024-12-03] MEDS: CLOPIDOGREL BISULFATE 75 MG TABLET PO (10:22)
[2024-12-03] MEDS: dexAMETHasone 2 MG TABLET 6 MG PO (10:22)
[2024-12-03] MEDS: LOSARTAN POTASSIUM 100 MG TABLET PO (10:22)
[2024-12-03] MEDS: SOTALOL HCL 80 MG TABLET PO ×2 (10:22→21:36)
[2024-12-03] MEDS: FENOFIBRATE NANOCRYSTALLIZED 145 MG TABLET PO (10:22)
[2024-12-03] MEDS: SOTALOL HCL 40 MG TABLET PO ×2 (10:23→21:37)
[2024-12-03] MEDS: SODIUM CHLORIDE 1 GM TABLET PO ×2 (10:23→16:28)
[2024-12-03] MEDS: MAGNESIUM OXIDE 400 MG TABLET PO (10:23)
[2024-12-03] MEDS: MIDODRINE HCL 2.5 MG TABLET 5 MG PO ×2 (10:23→16:28)
[2024-12-03] MEDS: LORATADINE 10 MG TABLET PO (10:23)
[2024-12-03] MEDS: EZETIMIBE 10 MG TABLET PO (10:23)
[2024-12-03] MEDS: PANTOPRAZOLE 40 MG TABLET PO (10:24)
[2024-12-03] MEDS: APIXABAN 5 MG TABLET PO ×2 (10:24→21:37)
[2024-12-03] MEDS: HYDROcodone/acetaminophen (*CRX) 5-325 MG TABLET 1 TAB PO ×2 (10:25→18:38)
[2024-12-03] MEDS: metFORMIN HCL 500 MG TABLET PO ×2 (10:25→16:28)
[2024-12-03 11:53] LABS: Glucose Point of Care 87 mg/dl (65-105)
[2024-12-03] MEDS: FLUoxetine HCL 20 MG CAPSULE PO (16:27)
[2024-12-03] MEDS: MONTELUKAST SODIUM 10 MG TABLET PO (16:28)
[2024-12-03 16:33] LABS: Glucose Point of Care 153 mg/dl (65-105)
[2024-12-03] MEDS: CYCLOBENZAPRINE HCL 10 MG TABLET PO (21:37)
[2024-12-03] MEDS: MELATONIN 5 MG TABLET PO (21:38)
[2024-12-03 22:06] LABS: Glucose Point of Care 159 mg/dl (65-105)
[2024-12-04] VITALS (12 sets, daily range): BP systolic 150–181; BP diastolic 72–94; PULSE 61–81; RESP 14–26; TEMP 35.6–36.7; O2SAT 100
[2024-12-04 07:42] LABS: Glucose Point of Care 102 mg/dl (65-105)
[2024-12-04 08:18] LABS: Basophils Percent Auto 0.3 % (0.2-1.2); Eosinophils Percent Auto 0.3 % (0-4.4); Hematocrit 37.9 % (37.0-47.0); Hemoglobin 12.2 g/dL (12.0-15.0); Immature Granulocyte Absolute 0.07 K/mm3 (0.00-0.031); Immature Granulocyte Percent A 0.8 % (0-0.5); Lymphocytes Percent Auto 27.2 % (18.3-44.2); Mean Corpuscular HGB Conc 32.2 g/dl (32-36); Mean Corpuscular Hemoglobin 28.1 pg (26-34); Mean Corpuscular Volume 87.3 fl (80-100); Mean Platelet Volume 9.5 fl (7.4-10.4); Monocytes Absolute Auto 0.7 K/mm3 (0.1-0.6); Neutrophils Absolute Auto 5.6 K/mm3 (1.3-6.7); Neutrophils Percent Auto 63.4 % (45.5-73.1); Platelet Count Result 317 k/mm3 (150-375); Red Blood Count 4.34 M/mm3 (4.2-5.4); Red Cell Distribution Width 14.6 % (11.5-14.5); White Blood Count 8.8 K/mm3 (4.5-10.0)
[2024-12-04 08:32] LABS: Anion Gap 8 mmol/L (4-12); Blood Urea Nitrogen 24 mg/dL (7-17); Calcium 9.5 mg/dL (8.4-10.2); Carbon Dioxide 29 mmol/L (22-30); Chloride 101 mmol/L (98-107); Estimated CRCL calculation 65 ml/min; Estimated Glomerular Filt Rate > 60; Glucose 95 mg/dL (65-110); Potassium 4.3 mmol/L (3.4-5.0); Sodium 138 mmol/L (137-145)
[2024-12-04] MEDS: CYCLOBENZAPRINE HCL 10 MG TABLET PO (08:32)
[2024-12-04] MEDS: SODIUM CHLORIDE 1 GM TABLET PO ×2 (08:32→17:20)
[2024-12-04] MEDS: CLOPIDOGREL BISULFATE 75 MG TABLET PO (08:32)
[2024-12-04] MEDS: FENOFIBRATE NANOCRYSTALLIZED 145 MG TABLET PO (08:32)
[2024-12-04] MEDS: metFORMIN HCL 500 MG TABLET PO ×2 (08:33→17:20)
[2024-12-04] MEDS: LOSARTAN POTASSIUM 50 MG TABLET PO ×2 (08:33→15:40)
[2024-12-04] MEDS: APIXABAN 5 MG TABLET PO ×2 (08:34→21:59)
[2024-12-04] MEDS: EZETIMIBE 10 MG TABLET PO (08:34)
[2024-12-04] MEDS: PANTOPRAZOLE 40 MG TABLET PO (08:34)
[2024-12-04] MEDS: CEFDINIR 300 MG CAPSULE PO (08:35)
[2024-12-04] MEDS: LORATADINE 10 MG TABLET PO (08:35)
[2024-12-04] MEDS: SOTALOL HCL 80 MG TABLET PO ×2 (08:36→21:59)
[2024-12-04] MEDS: SOTALOL HCL 40 MG TABLET PO ×2 (08:36→22:00)
[2024-12-04] MEDS: FLUTICASONE PROPIONATE 0.05% NA SPR 16 GM BTL (*BKC) 1 SPRAY NASAL (08:37)
[2024-12-04] MEDS: AZITHROMYCIN 250 MG TABLET 500 MG PO (08:41)
[2024-12-04] MEDS: FLUTICASONE/SALMETEROL 115-21 MCG INHALER 1 PUFF 2 PUFF INHALATION (09:18)
[2024-12-04] MEDS: IPRATROPIUM 0.5 MG/ALBUTEROL SULFATE 2.5 MG AMPUL.NEB 3 ML INHALATION ×2 (09:18→22:07)
[2024-12-04] MEDS: HYDROcodone/acetaminophen (*CRX) 5-325 MG TABLET 1 TAB PO ×2 (10:12→21:59)
[2024-12-04] MEDS: polyethylene glycoL 3350 17 GM POWD.PACK PO (10:12)
--- NOTE | 2024-12-04 10:30 | P.DS_ITS ---
DS: Admitting Diagnosis Discharge Date 12/04/24 Admitting Diagnosis Pneumonia, Pyelonephritis, Abdominal Pain, Hypertension, Chest Pain, Atrial Fibrillation, DM2 DS: Discharge Diagnosis Discharge Diagnosis (1) Hypertension associated with type 2 diabetes mellitus: Code(s): E11.59 - Type 2 diabetes mellitus with other circulatory complications; I15.2 - Hypertension secondary to endocrine disorders Status: Chronic Assessment and Plan: Home meds: Losartan 100mg, sotolol 120 BID. reports mild dizziness, likely related to blood pressure Blood pressure elevated 128/107-199/104 -- home meds resumed but on midodrine and losartan --Stop midodrine --Reduce losartan to 50mg daily 12/04/24: * Stable for discharge today as all of her symptoms have improved. * Will discharge with decreased dose of Losartan to 50 mg, and hold Midodrine until following up with PCP. (2) Type 2 diabetes mellitus: Code(s): E11.9 - Type 2 diabetes mellitus without complications Status: Chronic Assessment and Plan: Hypoglycemic protocol * Glucose checks ac and HS * Hold home oral hypoglycemics * Initiate SSI * Check A1C * Diabetic diet(8) History of bladder cancer: 12/04/24: * Resume home coverage upon discharge. (3) Atrial fibrillation with rapid ventricular response: Code(s): I48.91 - Unspecified atrial fibrillation Status: Chronic Assessment and Plan: * Continue Eliquis * Continue Sotalol (4) Peripheral arterial disease: Code(s): I73.9 - Peripheral vascular disease, unspecified Status: Chronic Assessment and Plan: Continue plavix (5) Pyelonephritis: Code(s): N12 - Tubulo-interstitial nephritis, not specified as acute or chronic Status: Ruled-out Assessment and Plan: CTA abd/pelvis showed bilateral pyelonephritis. Also seen prior admission UA no pyuria. Urine culture no growth --Continuing antibiotics for pneumonia, will also cover pyelonephritis, but given negative cultures, imaging findings may not be infection 12/04/24: * No active infection. This appears to be a chronic finding on imaging and cultures do not support the finding. (6) Pneumonia: Code(s): J18.9 - Pneumonia, unspecified organism Status: Acute Assessment and Plan: * Change rocephin to cefdinir tomorrow. Doesn't tolerate Augmentin well d/t gastric complaints. Quinolones interact with sotolol * Continue Azithromycin, last dose tomorrow * Change duonebs to prn * Trend labs and VS. * IS * Not wheezing s/p dexamethasone x1 dose stopped * Not meeting sepsis criteria. 12/04/24: * Continue Cefdinir at home. * Pt completed Azithromycin. * Continue nebs for home. * Neb machine order given for pt. Plan DS: Summary Hospital Course Reason for hospitalization: Pneumonia Hospital Course: This 63 year old female pt with PMH of DM, COPD, PAF on eliquis, GERD, CAD, Bladder cancer, bipolar disorder and recent admission in October for COVID and then repeat admission for it in early November presented to the ER and was subsequently admitted on 12/01/24 with once again having CP, N/V for the past week. Pt was recently discharged last on 11/18/24 after being cleared by cardiology for her CP with orders to continue Plavix for DEO in BLE, Eliquis for her A-fib, Sotalol for her fib and will follow up with her on 12/08/24 for routine following. They mentioned stress could be done as outpt if needed. Pt states upon return home a few days later from the previous hospitalization, she broke her Nebulizer machine had has not been able to do her nebs. On admission she endorsed a non-productive cough with tightness in the chest and epigastric pain as well. ER workup was significant for the following: Normal WBC's, renal function, trop and urine negative, EKG showing NSR 84 bpm without any ischemic changes, CXR NAD, but CTA C/A/P shows concern for potential Bilateral pyelonephritis, and RLL and RUL PNA. She is no longer on isolation for her COVID as it has been an appropriate time of isolation already. During her admission, she had negative Troponins and she has had an otherwise unremarkable workup with exception of her PNA. She transitioned from IV abx to oral, is on room air, is ambulatory without aid of oxygen or assistive device around the unit and is feeling a lot better. She is stable for discharge at this time and will follow up with PCP. Status at Discharge Cognitive/behavioral status at discharge: At baseline Functional status at discharge: independent ambulation Overall status at discharge: patient is back to baseline Time Spent with Patient Time attestation: Total time spent providing and/or coordinating discharge services: Time spent: Greater than 30 minutes Specific discharge activities: Follow up, discharge instructions, return to ER. Exam Narrative: General - Awake and alert. No acute distress Eyes - PERRLA, EOM intact ENT - No thrush, No erythema Neck - No noticeable or palpable swelling Lymph Nodes - No lymphadenopathy Cardiovascular - RRR no m/r/g, no JVD Lungs: Clear to auscultation, No wheezing, use of accessory muscles, no crackles Skin - Skin warm and dry, no wounds or rashes Abdomen - Normal bowel sounds, abdomen soft and nontender Extremities - No edema, cyanosis or clubbing Musculoskeletal - 5/5 strength, normal range of motion, no swollen or erythematous joints. Neurological ? Alert and oriented x 3, CN 2-12 grossly intact. Psych: Normal mood and affect DS: Data Data Completed and Pending Completed studies during hospitalization: ITS Impressions Chest X-Ray 12/01/24 08:50 IMPRESSION: 1. No acute cardiopulmonary disease. Chest/Abdomen/Pelvis CTA 12/01/24 10:13 IMPRESSION: 1. Bilateral pyelonephritis. 2. Aortic atherosclerosis. No aneurysm or dissection. 3. Mild airspace opacities in paraspinal right lower lobe and mild groundglass opacities in peripheral right upper lobe and right lower lobe, consistent with pneumonia. Labs on day of discharge: Labs from last 24 hours 12/04/24 12/04/24 12/03/24 08:11 07:34 21:38 WBC 8.8 RBC 4.34 Hgb 12.2 Hct 37.9 MCV 87.3 MCH 28.1 MCHC 32.2 RDW 14.6 H Plt Count 317 MPV 9.5 Immature Gran % (Auto) 0.8 H Neut % (Auto) 63.4 Lymph % (Auto) 27.2 Sunflower % (Auto) 8.0 Eos % (Auto) 0.3 Baso % (Auto) 0.3 Lymph # (Auto) 2.40 Sunflower # (Auto) 0.7 H Eos # (Auto) 0.0 Baso # (Auto) 0.0 Abs Immat Gran (auto) 0.07 H Absolute Neuts (auto) 5.6 Absolute Nucleated RBC 0.000 Nucleated RBC % 0.0 Sodium 138 Potassium 4.3 Chloride 101 Carbon Dioxide 29 Anion Gap 8 BUN 24 H Creatinine 0.75 Estim Creat Clear Calc 65 Estimated GFR > 60 Glucose 95 POC Capillary Glucose 102 159 H Calcium 9.5 12/03/24 12/03/24 16:27 11:38 WBC RBC Hgb Hct MCV MCH MCHC RDW Plt Count MPV Immature Gran % (Auto) Neut % (Auto) Lymph % (Auto) Sunflower % (Auto) Eos % (Auto) Baso % (Auto) Lymph # (Auto) Sunflower # (Auto) Eos # (Auto) Baso # (Auto) Abs Immat Gran (auto) Absolute Neuts (auto) Absolute Nucleated RBC Nucleated RBC % Sodium Potassium Chloride Carbon Dioxide Anion Gap BUN Creatinine Estim Creat Clear Calc Estimated GFR Glucose POC Capillary Glucose 153 H 87 Calcium Preliminary micro results at discharge 12/01/24 11:23 Blood Culture - Preliminary Blood 12/01/24 11:17 Blood Culture - Preliminary Blood Discharge Plan Discharge Attending physician on discharge: Jessica Wei Discharging Clinician: Jessica Wei Anticipated Discharge Date/Time: 12/04/24 10:41 Patient Disposition: Home, Self-Care Activity: as tolerated Diet: diabetic Discharge Instructions: Thank you for allowing us to care for you during your hospitalization. You were treated for Pneumonia and have improved overall. You are being discharged to home on oral antibiotics and I am also prescribing you a new nebulizer machine and tubing. Please follow up with your PCP this week and take this time to rest and fully recover. Please note that YOU SHOULD HOLD YOUR MIDODRINE UNTIL YOU SEE YOUR PCP AND YOUR DOSE OF LOSARTAN IS CHANGED TO ONLY 50 MG DAILY AND NOT 100 MG. THESE ARE IMPORTANT TO MENTION TO YOUR PCP UPON FOLLOW UP. Please continue all other medications and return to the ER should you have any worsening of your symptoms. Patient Instructions: Antibiotic Form Patient Language: Icelandic Stand Alone Forms: General Discharge Information Follow-up/Referrals: Andrey,Matti Parson MD [Primary Care Provider] - Call for Appointment Discharge Medications: New losartan [Cozaar] 50 mg Tablet 50 mg PO DAILY Qty: 60 0RF cefdinir 300 mg Capsule 300 mg PO Q12HR Qty: 10 0RF (DME) nebulizer and compressor [Lydia Trek S Combo Pack] Device 1 ea miscellaneous DIRECTED Qty: 1 0RF Continued (DME) Aerochamber MV Spacer See Rx Instructions .Route Qty: 1 0RF Rx Instructions: As directed albuterol sulfate 90 mcg/actuation HFA aerosol inhaler 2 puff inhalation QID PRN (Reason: shortness of breath or wheezing) Qty: 6.7 0RF cromolyn 4 % drops 1 drp EACH EYE DAILY Repatha SureClick 140 mg/mL pen injector 140 mg SUBCUT MONTHLY Patient Comments: first Wednesday of the month Zyrtec 1 tab-cap PO DAILY fluticasone propionate 50 mcg/actuation [place],Suspension 1 spray INTRANASAL DAILY clopidogrel 75 mg tablet 75 mg PO DAILY hydrocortisone 2.5 % cream with perineal applicator 1 applic RECTAL DAILY PRN (Reason: hemorrhoids) Qty: 30 0RF lorazepam 0.5 mg tablet 0.5 mg PO TID metformin 500 mg tablet 500 mg PO BID metoclopramide HCl [Reglan] 10 mg tablet 10 mg PO BID PRN (Reason: nausea and vomiting) Qty: 60 11RF trazodone 50 mg tablet 50 mg PO HS PRN (Reason: Insomnia) Eliquis 5 mg Tablet 5 mg PO Q12HR Qty: 60 2RF ezetimibe 10 mg tablet 10 mg PO DAILY fluoxetine 40 mg capsule 20 mg PO QPM Qty: 30 0RF ondansetron HCl 4 mg tablet 4 mg PO Q8H PRN (Reason: Nausea And Vomiting) Qty: 10 0RF sotalol 80 mg Tablet 120 mg PO Q12HR ergocalciferol (vitamin D2) 1,250 mcg (50,000 unit) capsule 50,000 unit PO WEEKLY Rx Instructions: takes weekly on Wednesday cyclobenzaprine 10 mg tablet 10 mg PO PRN budesonide-formoterol [Symbicort] 160-4.5 mcg/actuation HFA aerosol inhaler See Rx Instructions .ROUTE .COMPLEX Rx Instructions: 2 puff inhaled AM AND HS hydrocodone-acetaminophen 5-325 mg Tablet 1 tablet PO Q8H PRN (Reason: Pain Rated 4-6) Qty: 15 0RF oxybutynin chloride 5 mg Tablet 5 mg PO TID Qty: 90 0RF montelukast 10 mg tablet 10 mg PO QPM fenofibrate 120 mg tablet 120 mg PO DAILY albuterol sulfate 2.5 mg /3 mL (0.083 %) solution for nebulization 2.5 mg inhalation Q6H PRN (Reason: shortness of breath or wheezing) magnesium oxide 400 mg (241.3 mg magnesium) Tablet 400 mg PO DAILY Qty: 7 0RF sodium chloride 1,000 mg Tablet,Soluble 1,000 mg PO BID Qty: 30 0RF dexlansoprazole 30 mg capsule,biphase delayed releas See Rx Instructions .ROUTE .COMPLEX Qty: 30 11RF Dose Instruction: TAKE 1 CAPSULE BY MOUTH DAILY Rx Instructions: TAKE 1 CAPSULE BY MOUTH DAILY Held midodrine 2.5 mg Tablet 5 mg PO BID Qty: 60 0RF Hold Instructions: Resume on 12/23/24. HOLD UNTIL YOU FOLLOW UP WITH YOUR PCP. Discontinued losartan 100 mg tablet 100 mg PO DAILY Date of admission: 12/01/24 12:48 Primary Care Provider: AndreyMatti Admitting Provider: Damien Castro Attending physician on admission: Jessica Wei Condition: Stable Quality VTE Prophylaxis VTE prophylaxis: pharmacologic ordered Hospitalist MIPS Heart Failure (Exclusion) Patient has history of Heart Transplant or Left Ventricular Assistive Device?: No IF YES, STOP HERE Heart Failure (Qualifier) Patient has current or prior documentation of LVEF less than or equal to 40%, or mod/servere depressed LVSF?: No IF NO, STOP HERE
[2024-12-04] MEDS: MAGNESIUM OXIDE 400 MG TABLET PO (11:32)
[2024-12-04 11:33] LABS: Glucose Point of Care 110 mg/dl (65-105)
[2024-12-04] MEDS: hydrALAZINE 10 MG TABLET PO (14:26)
[2024-12-04] MEDS: ONDANSETRON HCL ODT 4 MG TABLET PO (14:26)
[2024-12-04 16:52] LABS: Glucose Point of Care 123 mg/dl (65-105)
[2024-12-04] MEDS: ONDANSETRON INJ 4 MG/2 ML VIAL IV PUSH ×2 (16:56→20:29)
[2024-12-04] MEDS: MONTELUKAST SODIUM 10 MG TABLET PO (17:20)
[2024-12-04] MEDS: LORazepam (*CRX) 0.5 MG TABLET PO (17:21)
--- NOTE | 2024-12-04 17:42 | PC.NURSE ---
This nurse got a discharge for pt in the afternoon and went over discharge with pt. pt stated she was waiting on a ride. This nurse noticed that pt BP is elevated to 180/90 around 1400 and pt started complaining of feeling nauseous and started to throw up. Called Hospitalist and got an order for 10mg hydralazine and 50mg losartan to make 100mg total for today. pt BP still 180/90 after recheck of BP 1 hour later. This nurse needed to restart IV to give pt iv zofran. pt started to cry and did not feel comfortable going home and stated she would go right back to the ER. This nurse informed the hospitalist again and talked to the charge nurse about the status of her discharge. pt is waiting and deciding if she wants to leave or go back to the ER. This nurse also talked to the pump house engineer about the status of the patients discharge.
[2024-12-04] MEDS: METOCLOPRAMIDE HCL 10 MG TABLET PO (19:58)
[2024-12-04 21:22] LABS: Glucose Point of Care 142 mg/dl (65-105)
--- NOTE | 2024-12-05 00:07 | ECG_ITS ---
Test Date: 2024-12-05 00:07:07 Measurements Intervals [place] Rate: 77 P: 42 [place]: 131 QRS: 33 QRSD: 90 T: 26 QT: 426 QTc: 483 Interpretive Statements SINUS RHYTHM NONSPECIFIC ST DEPRESSION Compared to ECG 12/01/2024 08:21:48 No significant changes Electronically Signed On 12-05-2024 10:43:40 RESIDENTIAL SUPPORT SPECIALIST by Martin Rubio M.D.
[2024-12-05] MEDS: HYDROmorphone HCL INJ (*CRX) 1 MG/ML SYR 0.5 MG IV PUSH (00:14)
[2024-12-05] MEDS: MELATONIN 5 MG TABLET PO (00:15)
[2024-12-05] MEDS: ONDANSETRON INJ 4 MG/2 ML VIAL IV PUSH (00:15)
[2024-12-05] MEDS: CEFDINIR 300 MG CAPSULE PO ×2 (00:16→08:47)
[2024-12-05 06:00] VITALS: BP 104/64; PULSE 71; RESP 20; TEMP 36.6; O2SAT 97
[2024-12-05 07:59] LABS: Glucose Point of Care 104 mg/dl (65-105)
[2024-12-05 08:00] VITALS: O2SAT 99
[2024-12-05 08:06] VITALS: PULSE 67; RESP 18; O2SAT 97
[2024-12-05] MEDS: FLUTICASONE/SALMETEROL 115-21 MCG INHALER 1 PUFF 2 PUFF INHALATION (08:06)
[2024-12-05] MEDS: IPRATROPIUM 0.5 MG/ALBUTEROL SULFATE 2.5 MG AMPUL.NEB 3 ML INHALATION (08:06)
[2024-12-05 08:15] VITALS: PULSE 70; RESP 18
[2024-12-05 08:45] VITALS: BP 103/70; PULSE 72; O2SAT 99
[2024-12-05] MEDS: APIXABAN 5 MG TABLET PO (08:47)
[2024-12-05] MEDS: EZETIMIBE 10 MG TABLET PO (08:47)
[2024-12-05] MEDS: LORATADINE 10 MG TABLET PO (08:47)
[2024-12-05] MEDS: CLOPIDOGREL BISULFATE 75 MG TABLET PO (08:47)
[2024-12-05] MEDS: FENOFIBRATE NANOCRYSTALLIZED 145 MG TABLET PO (08:47)
[2024-12-05 08:48] VITALS: PULSE 72
[2024-12-05] MEDS: SOTALOL HCL 80 MG TABLET PO (08:48)
[2024-12-05] MEDS: PANTOPRAZOLE 40 MG TABLET PO (08:48)
[2024-12-05] MEDS: SODIUM CHLORIDE 1 GM TABLET PO (08:48)
[2024-12-05] MEDS: metFORMIN HCL 500 MG TABLET PO (08:48)
[2024-12-05] MEDS: SOTALOL HCL 40 MG TABLET PO (08:48)
[2024-12-05] MEDS: LORazepam (*CRX) 0.5 MG TABLET PO (08:54)
[2024-12-05] MEDS: HYDROcodone/acetaminophen (*CRX) 5-325 MG TABLET 1 TAB PO (08:54)
--- NOTE | 2024-12-05 10:21 | PM.IMPN ---
Progress Note: A&P Assessment and Plan (1) Hypertension associated with type 2 diabetes mellitus: Code(s): E11.59 - Type 2 diabetes mellitus with other circulatory complications; I15.2 - Hypertension secondary to endocrine disorders Status: Chronic Assessment and Plan: Home meds: Losartan 100mg, sotolol 120 BID. reports mild dizziness, likely related to blood pressure -- home meds resumed but on midodrine and losartan --Stop midodrine --Reduce losartan to 50mg daily Will discharge with decreased dose of Losartan to 50 mg, and hold Midodrine until following up with PCP. (2) Type 2 diabetes mellitus: Code(s): E11.9 - Type 2 diabetes mellitus without complications Status: Chronic Assessment and Plan: Hypoglycemic protocol Glucose checks ac and HS Hold home oral hypoglycemics Initiate SSI Check A1C Diabetic diet Resume home coverage upon discharge. (3) Atrial fibrillation with rapid ventricular response: Code(s): I48.91 - Unspecified atrial fibrillation Status: Chronic Assessment and Plan: Continue Eliquis Continue Sotalol (4) Peripheral arterial disease: Code(s): I73.9 - Peripheral vascular disease, unspecified Status: Chronic Assessment and Plan: Continue plavix (5) Pyelonephritis: Code(s): N12 - Tubulo-interstitial nephritis, not specified as acute or chronic Status: Ruled-out Assessment and Plan: CTA abd/pelvis showed bilateral pyelonephritis. Also seen prior admission UA no pyuria. Urine culture no growth --Continuing antibiotics for pneumonia, will also cover pyelonephritis, but given negative cultures, imaging findings may not be infection No active infection. This appears to be a chronic finding on imaging and cultures do not support the finding. (6) Pneumonia: Code(s): J18.9 - Pneumonia, unspecified organism Status: Acute Assessment and Plan: Change duonebs to prn Trend labs and VS. IS Not wheezing s/p dexamethasone x1 dose stopped Not meeting sepsis criteria. Continue Cefdinir at home. Pt completed Azithromycin. Continue nebs for home. Neb machine order given for pt. Plan Subjective Date/time seen: 12/05/24 10:21 Interval history: 63 year old female pt with PMH of DM, COPD, PAF on eliquis, GERD, CAD, Bladder cancer, bipolar disorder and recent admission in October for COVID and then repeat admission for it in early November comes to the ER today with once again having CP, N/V for the past week. discharge canceled due to extreme nausea and vomiting, Protonix, Carafate and L bolus ordered this morning Review of Systems Review of Systems: All systems reviewed & are unremarkable except as noted in HPI and below Exam Narrative: General - Awake and alert. No acute distress Eyes - PERRLA, EOM intact ENT - No thrush, No erythema Neck - No noticeable or palpable swelling Lymph Nodes - No lymphadenopathy Cardiovascular - RRR no m/r/g, no JVD Lungs: Clear to auscultation, No wheezing, use of accessory muscles, no crackles Skin - Skin warm and dry, no wounds or rashes Abdomen - Normal bowel sounds, abdomen soft and nontender Extremities - No edema, cyanosis or clubbing Musculoskeletal - 5/5 strength, normal range of motion, no swollen or erythematous joints. Neurological ? Alert and oriented x 3, CN 2-12 grossly intact. Psych: Normal mood and affect Objective Data Vital Signs Vital Signs: Vital Signs - 24 hr 12/04/24 14:00 12/04/24 15:27 12/04/24 17:00 Temperature 98.1 F Pulse Rate 70 80 79 Respiratory Rate 18 Blood Pressure 181/93 H 180/90 H 180/90 H Pulse Oximetry 100 100 Oxygen Delivery Fraction of Inspired Oxygen 12/04/24 20:00 12/04/24 21:24 12/04/24 21:59 Temperature 96.0 F L Pulse Rate 79 72 Respiratory Rate 26 H Blood Pressure 177/94 H Pulse Oximetry 100 Oxygen Delivery Room Air Fraction of Inspired Oxygen 21 12/04/24 22:00 12/04/24 22:08 12/04/24 22:10 Temperature Pulse Rate 72 81 Respiratory Rate 18 Blood Pressure Pulse Oximetry 100 Oxygen Delivery Room Air Fraction of Inspired Oxygen 12/04/24 22:16 12/04/24 23:23 12/05/24 06:00 Temperature 97.8 F Pulse Rate 81 71 Respiratory Rate 18 20 Blood Pressure 166/85 H 104/64 Pulse Oximetry 97 Oxygen Delivery Fraction of Inspired Oxygen 12/05/24 08:00 12/05/24 08:06 12/05/24 08:06 Temperature Pulse Rate 67 Respiratory Rate 18 Blood Pressure Pulse Oximetry 99 97 Oxygen Delivery Room Air Room Air Fraction of Inspired Oxygen 12/05/24 08:15 12/05/24 08:45 12/05/24 08:48 Temperature Pulse Rate 70 72 72 Respiratory Rate 18 Blood Pressure 103/70 Pulse Oximetry 99 Oxygen Delivery Fraction of Inspired Oxygen 12/05/24 08:48 Temperature Pulse Rate 72 Respiratory Rate Blood Pressure Pulse Oximetry Oxygen Delivery Fraction of Inspired Oxygen Intake/Output Intake/Output: Intake & Output 12/02/24 12/03/24 12/04/24 12/05/24 23:59 23:59 23:59 23:59 Intake Total 1550 1020 935 445 Output Total 700 Balance 850 1020 935 445 Meds/Results Medications: Active Medications Generic Name Dose Route Start Last Admin Trade Name Freq PRN Reason Stop Dose Admin Acetaminophen 650 mg 12/01/24 15:48 12/02/24 17:47 Acetaminophen 325 Mg Tablet PO 650 mg Q4H PRN Administration Mild Pain (1-3) or Fever Hydrocodone Bitart/Acetaminophen 1 tab 12/01/24 16:45 12/05/24 08:54 Hydrocodone/Acetaminophen (*Crx) 5-325 Mg Tablet PO 1 tab Q8H PRN Administration Pain Rated 4-6 Albuterol/Ipratropium 3 ml 12/03/24 13:42 12/05/24 08:06 Ipratropium 0.5 Mg/Albuterol Sulfate 2.5 Mg Ampul.Neb 3 Ml INHALATION 3 ml Q6HRT PRN Administration Shortness Of Breath Apixaban 5 mg 12/01/24 21:00 12/05/24 08:47 Apixaban 5 Mg Tablet PO 5 mg Q12HR LANCE Administration Cefdinir 300 mg 12/04/24 09:00 12/05/24 08:47 Cefdinir 300 Mg Capsule PO 12/08/24 22:00 300 mg Q12HR LANCE Administration Clopidogrel Bisulfate 75 mg 12/02/24 09:00 12/05/24 08:47 Clopidogrel Bisulfate 75 Mg Tablet PO 75 mg DAILY LANCE Administration Cyclobenzaprine HCl 10 mg 12/01/24 16:47 12/04/24 08:32 Cyclobenzaprine Hcl 10 Mg Tablet PO 10 mg TID PRN Administration Muscle/Joint Pain Dextrose 12.5 gm 12/01/24 16:38 Dextrose 50% 25 Gm/50 Ml Syringe IV PUSH PRN PRN Hypoglycemia Protocol Ezetimibe 10 mg 12/02/24 09:00 12/05/24 08:47 Ezetimibe 10 Mg Tablet PO 10 mg DAILY LANCE Administration Ergocalciferol 50,000 units 12/11/24 09:00 Ergocalciferol 50,000 Units Capsule PO Mo@0900 LANCE Fenofibrate 145 mg 12/02/24 09:00 12/05/24 08:47 Fenofibrate Nanocrystallized 145 Mg Tablet PO 145 mg QAM LANCE Administration Fluoxetine HCl 20 mg 12/01/24 18:00 12/04/24 17:16 Fluoxetine Hcl 20 Mg Capsule PO Not Given QPM LANCE Fluticasone Propionate 1 spray 12/02/24 09:00 12/05/24 08:48 Fluticasone Propionate 0.05% Na Spr 16 Gm Btl (*Bkc) NASAL Not Given DAILY LANCE Glucagon 1 mg 12/01/24 16:38 Glucagon For Inj 1 Mg Vial IM PRN PRN Hypoglycemia Protocol Glucose 15 gm 12/01/24 16:38 Glucose Oral Gel 15 Gm Of Glucse In 37.5 Gm Tube PO PRN PRN Hypoglycemia Protocol Hydrocortisone 1 applic 12/01/24 17:01 Hydrocortisone 2.5% Cream 30 Gm Tube RECTAL DAILY PRN hemorrhoids Dextrose 1,000 mls @ 100 mls/hr 12/01/24 16:38 Dextrose 5% 1,000 Ml IVPB PRN PRN Hypoglycemia Protocol Ibuprofen 600 mg 12/01/24 15:48 Ibuprofen 600 Mg Tablet PO Q6H PRN Pain Rated 4-6 Insulin Aspart 2 - 5 units 12/01/24 17:00 12/05/24 08:36 Insulin Aspart (*Bkc) 100 Units/Ml SUB-Q Not Given TIDWM [facility] Protocol Insulin Aspart 1 - 2 units 12/01/24 21:00 12/04/24 21:42 Insulin Aspart (*Bkc) 100 Units/Ml SUB-Q Not Given HS [facility] Protocol Loratadine 10 mg 12/02/24 09:00 12/05/24 08:47 Loratadine 10 Mg Tablet PO 10 mg QAM LANCE Administration Lorazepam 0.5 mg 12/02/24 22:51 12/05/24 08:54 Lorazepam (*Crx) 0.5 Mg Tablet PO 0.5 mg TID PRN Administration Anxiety Losartan Potassium 50 mg 12/04/24 09:00 12/04/24 08:33 Losartan Potassium 50 Mg Tablet PO 50 mg DAILY LANCE Administration Magnesium Oxide 400 mg 12/04/24 12:00 12/04/24 11:32 Magnesium Oxide 400 Mg Tablet PO 400 mg DAILY@1200 [facility] Administration Melatonin 5 mg 12/02/24 22:49 12/05/24 00:15 Melatonin 5 Mg Tablet PO 5 mg HS PRN Administration Insomnia Metformin HCl 500 mg 12/01/24 17:00 12/05/24 08:48 Metformin Hcl 500 Mg Tablet PO 500 mg BID LANCE Administration Metoclopramide HCl 10 mg 12/01/24 16:45 12/04/24 19:58 Metoclopramide Hcl 10 Mg Tablet PO 10 mg BID PRN Administration nausea and vomiting Midodrine 5 mg 12/01/24 17:00 12/03/24 16:28 Midodrine Hcl 2.5 Mg Tablet PO 5 mg BID LANCE Administration Miscellaneous Information 0 each 12/01/24 00:01 12/04/24 01:30 Evolocumab (Repatha Sureclick) Is Nonformulary - Can Patient Use From Home? Hold While Her XX 12/31/24 00:00 Not Given CLARIFY [facility] Miscellaneous Information 0 each 12/01/24 00:01 12/04/24 01:29 Cromolyn Opth Is Nonformulary - Can Patient Use From Home? Order Alternative? XX 12/31/24 00:00 Not Given [facility]AR[facility] Montelukast Sodium 10 mg 12/01/24 18:00 12/04/24 17:20 Montelukast Sodium 10 Mg Tablet PO 10 mg QPM LANCE Administration Non-Formulary Medication 1 drop 12/02/24 09:00 Cromolyn EACH EYE 01/01/25 08:59 DAILY [facility] Non-Formulary Medication 140 mg 12/31/24 09:00 Evolocumab [Repatha Sureclick] SUB-Q 01/30/25 08:59 MONTHLY [facility] Ondansetron HCl 4 mg 12/01/24 12:48 12/05/24 00:15 Ondansetron Inj 4 Mg/2 Ml Vial IV PUSH 4 mg Q4H PRN Administration Nausea Ondansetron HCl 4 mg 12/01/24 16:45 12/04/24 14:26 Ondansetron Hcl Odt 4 Mg Tablet PO 4 mg Q8H PRN Administration Nausea And Vomiting Oxybutynin Chloride 5 mg 12/01/24 17:00 12/05/24 08:48 Oxybutynin Chloride 5 Mg Tablet PO Not Given TID LANCE Pantoprazole Sodium 40 mg 12/02/24 09:00 12/05/24 08:48 Pantoprazole 40 Mg Tablet PO 40 mg QAM LANCE Administration Polyethylene Glycol 17 gm 12/04/24 09:36 12/04/24 10:12 Polyethylene Glycol 3350 17 Gm Powd.Pack PO 17 gm QAM PRN Administration Constipation Fluticasone/Salmeterol 2 puff 12/01/24 20:00 12/05/24 08:06 Fluticasone/Salmeterol 115-21 Mcg Inhaler 1 Puff INHALATION 2 puff Q12HRT LANCE Administration Sodium Chloride 1 gm 12/01/24 17:00 12/05/24 08:48 Sodium Chloride 1 Gm Tablet PO 1 gm BID LANCE Administration Sotalol HCl 40 mg 12/01/24 21:00 12/05/24 08:48 Sotalol Hcl 40 Mg Tablet PO 40 mg Q12HR LANCE Administration Sotalol HCl 80 mg 12/01/24 21:00 12/05/24 08:48 Sotalol Hcl 80 Mg Tablet PO 80 mg Q12HR LANCE Administration Trazodone HCl 50 mg 12/01/24 16:45 12/02/24 23:08 Trazodone Hcl 50 Mg Tablet PO 50 mg HS PRN Administration Insomnia Radiology Results: ITS Impressions Chest X-Ray 12/01/24 08:50 IMPRESSION: 1. No acute cardiopulmonary disease. Chest/Abdomen/Pelvis CTA 12/01/24 10:13 IMPRESSION: 1. Bilateral pyelonephritis. 2. Aortic atherosclerosis. No aneurysm or dissection. 3. Mild airspace opacities in paraspinal right lower lobe and mild groundglass opacities in peripheral right upper lobe and right lower lobe, consistent with pneumonia. Abdomen X-Ray 12/04/24 21:58 IMPRESSION: Nonspecific, nonobstructive bowel gas pattern. Labs Labs: Laboratory Results - last 24 hr 12/04/24 12/04/24 12/04/24 11:19 16:32 20:04 POC Capillary Glucose 110 H 123 H 142 H 12/05/24 07:52 POC Capillary Glucose 104 Quality VTE Prophylaxis VTE prophylaxis: pharmacologic ordered
--- NOTE | 2024-12-05 10:27 | PC.NURSE ---
BP 103/70 am cozzar held. Anne Blanchard NAUMKEAG OPERATOR notified.
[2024-12-05] MEDS: SODIUM CHLORIDE 0.9% IV 1,000 ML 999 ML IV CONT (10:49)
[2024-12-05] MEDS: SUCRALFATE SUSP 100 MG/ML 10 ML UDC 1000 MG PO (10:50)
[2024-12-05 11:48] LABS: Glucose Point of Care 114 mg/dl (65-105)
[2024-12-05] MEDS: MAGNESIUM OXIDE 400 MG TABLET PO (12:55)
--- NOTE | 2024-12-05 13:53 | P.DS_ITS ---
DS: Admitting Diagnosis Discharge Date 12/05/2024 Admitting Diagnosis pneumonia DS: Discharge Diagnosis Discharge Diagnosis (1) Hypertension associated with type 2 diabetes mellitus: Code(s): E11.59 - Type 2 diabetes mellitus with other circulatory complications; I15.2 - Hypertension secondary to endocrine disorders Status: Chronic Assessment and Plan: Home meds: Losartan 100mg, sotolol 120 BID. reports mild dizziness, likely related to blood pressure -- home meds resumed but on midodrine and losartan --Stop midodrine --Reduce losartan to 50mg daily * Will discharge with decreased dose of Losartan to 50 mg, and hold Midodrine until following up with PCP. (2) Type 2 diabetes mellitus: Code(s): E11.9 - Type 2 diabetes mellitus without complications Status: Chronic Assessment and Plan: Hypoglycemic protocol * Glucose checks ac and HS * Hold home oral hypoglycemics * Initiate SSI * Check A1C * Diabetic diet * Resume home coverage upon discharge. (3) Atrial fibrillation with rapid ventricular response: Code(s): I48.91 - Unspecified atrial fibrillation Status: Chronic Assessment and Plan: * Continue Eliquis * Continue Sotalol (4) Peripheral arterial disease: Code(s): I73.9 - Peripheral vascular disease, unspecified Status: Chronic Assessment and Plan: Continue plavix (5) Pyelonephritis: Code(s): N12 - Tubulo-interstitial nephritis, not specified as acute or chronic Status: Ruled-out Assessment and Plan: CTA abd/pelvis showed bilateral pyelonephritis. Also seen prior admission UA no pyuria. Urine culture no growth --Continuing antibiotics for pneumonia, will also cover pyelonephritis, but given negative cultures, imaging findings may not be infection * No active infection. This appears to be a chronic finding on imaging and cu ltures do not support the finding. (6) Pneumonia: Code(s): J18.9 - Pneumonia, unspecified organism Status: Acute Assessment and Plan: * Change duonebs to prn * Trend labs and VS. * IS * Not wheezing s/p dexamethasone x1 dose stopped * Not meeting sepsis criteria. * Continue Cefdinir at home. * Pt completed Azithromycin. * Continue nebs for home. * Neb machine order given for pt. Plan DS: Summary Hospital Course Reason for hospitalization: Pneumonia Hospital Course: This 63 year old female pt with PMH of DM, COPD, PAF on eliquis, GERD, CAD, Bladder cancer, bipolar disorder and recent admission in October for COVID and then repeat admission for it in early November presented to the ER and was subsequently admitted on 12/01/24 with once again having CP, N/V for the past week. Pt was recently discharged last on 11/18/24 after being cleared by cardiology for her CP with orders to continue Plavix for DEO in BLE, Eliquis for her A-fib, Sotalol for her fib and will follow up with her on 12/08/24 for routine following. They mentioned stress could be done as outpt if needed. Pt states upon return home a few days later from the previous hospitalization, she broke her Nebulizer machine had has not been able to do her nebs. On admission she endorsed a non-productive cough with tightness in the chest and epigastric pain as well. ER workup was significant for the following: Normal WBC's, renal function, trop and urine negative, EKG showing NSR 84 bpm without any ischemic changes, CXR NAD, but CTA C/A/P shows concern for potential Bilateral pyelo nephritis, and RLL and RUL PNA. She is no longer on isolation for her COVID as it has been an appropriate time of isolation already. During her admission, she had negative Troponins and she has had an otherwise unremarkable workup with exception of her PNA. She transitioned from IV abx to oral, is on room air, is ambulatory without aid of oxygen or assistive device around the unit and is feeling a lot better. She is stable for discharge at this time and will follow up with PCP. her before discharge patient has severe nausea and vomiting with heartburn and systolic blood pressure above 200. So discharge was canceled yesterday. This morning she was started on Carafate ppi with much improvement in able to tolerate food. Will discharge patient with Carafate and Zofran. Status at Discharge Cognitive/behavioral status at discharge: At baseline Functional status at discharge: independent ambulation Time Spent with Patient Time attestation: Total time spent providing and/or coordinating discharge services: Time spent: Greater than 30 minutes Exam Narrative: General - Awake and alert. No acute distress Eyes - PERRLA, EOM intact ENT - No thrush, No erythema Neck - No noticeable or palpable swelling Lymph Nodes - No lymphadenopathy Cardiovascular - RRR no m/r/g, no JVD Lungs: Clear to auscultation, No wheezing, use of accessory muscles, no crackles Skin - Skin warm and dry, no wounds or rashes Abdomen - Normal bowel sounds, abdomen soft and nontender Extremities - No edema, cyanosis or clubbing Musculoskeletal - 5/5 strength, normal range of motion, no swollen or erythematous joints. Neurological ? Alert and oriented x 3, CN 2-12 grossly intact. Psych: Normal mood and affect DS: Data Data Completed and Pending Labs on day of discharge: Labs from last 24 hours 12/05/24 12/05/24 12/04/24 11:40 07:52 20:04 POC Capillary Glucose 114 H 104 142 H 12/04/24 16:32 POC Capillary Glucose 123 H Preliminary micro results at discharge 12/01/24 11:23 Blood Culture - Preliminary Blood 12/01/24 11:17 Blood Culture - Preliminary Blood Discharge Plan Discharge Discharging Clinician: Anne Blanchard Anticipated Discharge Date/Time: 12/04/24 10:41 Patient Disposition: Home, Self-Care Activity: as tolerated Diet: diabetic Discharge Instructions: Thank you for allowing us to care for you during your hospitalization. You were treated for Pneumonia and have improved overall. You are being discharged to home on oral antibiotics and I am also prescribing you a new nebulizer machine and tubing. Please follow up with your PCP this week and take this time to rest and fully recover. Please note that YOU SHOULD HOLD YOUR MIDODRINE UNTIL YOU SEE YOUR PCP AND YOUR DOSE OF LOSARTAN IS CHANGED TO ONLY 50 MG DAILY AND NOT 100 MG. THESE ARE IMPORTANT TO MENTION TO YOUR PCP UPON FOLLOW UP. Please continue all other medications and return to the ER should you have any worsening of your symptoms. is recommended that you take Protonix for for 21 days, Mylanta or Pepto daily x2 weeks, and your been prescribed Carafate with meals for 1 week For heartburn if this does not resolve the issue was recommended follow-up outpatient GI . Patient Instructions: Antibiotic Form, GERD (Gastroesophageal Reflux Disease) (DC), Pneumonia (GEN) Patient Language: Polish Stand Alone Forms: General Discharge Information Follow-up/Referrals: Andrey,Matti Parson MD [Primary Care Provider] - Call for Appointment Discharge Medications: New losartan [Cozaar] 50 mg Tablet 50 mg PO DAILY Qty: 60 0RF cefdinir 300 mg Capsule 300 mg PO Q12HR Qty: 10 0RF (DME) nebulizer and compressor [Lydia Trek S Combo Pack] Device 1 ea miscellaneous DIRECTED Qty: 1 0RF sucralfate 100 mg/mL Suspension 1,000 mg PO ACHS 7 Days Qty: 280 0RF ondansetron 4 mg tablet,disintegrating 4 mg PO Q8H PRN (Reason: nausea and vomiting) Qty: 10 0RF Continued (DME) Aerochamber MV Spacer See Rx Instructions .Route Qty: 1 0RF Rx Instructions: As directed albuterol sulfate 90 mcg/actuation HFA aerosol inhaler 2 puff inhalation QID PRN (Reason: shortness of breath or wheezing) Qty: 6.7 0RF cromolyn 4 % drops 1 drp EACH EYE DAILY Repatha SureClick 140 mg/mL pen injector 140 mg SUBCUT MONTHLY Patient Comments: first Wednesday of the month Zyrtec 1 tab-cap PO DAILY fluticasone propionate 50 mcg/actuation [employer],Suspension 1 spray INTRANASAL DAILY clopidogrel 75 mg tablet 75 mg PO DAILY hydrocortisone 2.5 % cream with perineal applicator 1 applic RECTAL DAILY PRN (Reason: hemorrhoids) Qty: 30 0RF lorazepam 0.5 mg tablet 0.5 mg PO TID metformin 500 mg tablet 500 mg PO BID metoclopramide HCl [Reglan] 10 mg tablet 10 mg PO BID PRN (Reason: nausea and vomiting) Qty: 60 11RF trazodone 50 mg tablet 50 mg PO HS PRN (Reason: Insomnia) Eliquis 5 mg Tablet 5 mg PO Q12HR Qty: 60 2RF ezetimibe 10 mg tablet 10 mg PO DAILY fluoxetine 40 mg capsule 20 mg PO QPM Qty: 30 0RF ondansetron HCl 4 mg tablet 4 mg PO Q8H PRN (Reason: Nausea And Vomiting) Qty: 10 0RF sotalol 80 mg Tablet 120 mg PO Q12HR ergocalciferol (vitamin D2) 1,250 mcg (50,000 unit) capsule 50,000 unit PO WEEKLY Rx Instructions: takes weekly on Wednesday cyclobenzaprine 10 mg tablet 10 mg PO PRN budesonide-formoterol [Symbicort] 160-4.5 mcg/actuation HFA aerosol inhaler See Rx Instructions .ROUTE .COMPLEX Rx Instructions: 2 puff inhaled AM AND HS hydrocodone-acetaminophen 5-325 mg Tablet 1 tablet PO Q8H PRN (Reason: Pain Rated 4-6) Qty: 15 0RF oxybutynin chloride 5 mg Tablet 5 mg PO TID Qty: 90 0RF montelukast 10 mg tablet 10 mg PO QPM fenofibrate 120 mg tablet 120 mg PO DAILY albuterol sulfate 2.5 mg /3 mL (0.083 %) solution for nebulization 2.5 mg inhalation Q6H PRN (Reason: shortness of breath or wheezing) magnesium oxide 400 mg (241.3 mg magnesium) Tablet 400 mg PO DAILY Qty: 7 0RF sodium chloride 1,000 mg Tablet,Soluble 1,000 mg PO BID Qty: 30 0RF dexlansoprazole 30 mg capsule,biphase delayed releas See Rx Instructions .ROUTE .COMPLEX Qty: 30 11RF Dose Instruction: TAKE 1 CAPSULE BY MOUTH DAILY Rx Instructions: TAKE 1 CAPSULE BY MOUTH DAILY Held midodrine 2.5 mg Tablet 5 mg PO BID Qty: 60 0RF Hold Instructions: Resume on 12/23/24. HOLD UNTIL YOU FOLLOW UP WITH YOUR PCP. Discontinued losartan 100 mg tablet 100 mg PO DAILY Date of admission: 12/01/24 12:48 Primary Care Provider: Andrey,Matti Parson Admitting Provider: Damien Castro Attending physician on admission: Jessica Wei Condition: Stable Quality VTE Prophylaxis VTE prophylaxis: pharmacologic ordered Hospitalist MIPS Heart Failure (Exclusion) Patient has history of Heart Transplant or Left Ventricular Assistive Device?: No IF YES, STOP HERE Heart Failure (Qualifier) Patient has current or prior documentation of LVEF less than or equal to 40%, or mod/servere depressed LVSF?: No IF NO, STOP HERE
== END 2024-12-05 14:54 | disposition home or self-care (01) ==
LOC: ANHED 09:41 → ANH3MEDSUR 13:44
PROVIDERS: Emergency Medicine; Nurse Practitioner Acute Care; Admitting Provider Hospitalist; Emergency Provider Physician Assistant; PCP Family Medicine; Visit Provider Nurse Practitioner Adult Health
DX: J18.9 Pneumonia, unspecified organism (principal); U09.9 Post COVID-19 condition, unspecified; J44.0 Chronic obstructive pulmonary disease with (acute) lower respiratory infection; R93.5 Abnormal findings on diagnostic imaging of other abdominal regions, including retroperitoneum; R10.9 Unspecified abdominal pain; E11.59 Type 2 diabetes mellitus with other circulatory complications; I15.2 Hypertension secondary to endocrine disorders; E11.51 Type 2 diabetes mellitus with diabetic peripheral angiopathy without gangrene; I25.10 Atherosclerotic heart disease of native coronary artery without angina pectoris; I48.0 Paroxysmal atrial fibrillation; F31.9 Bipolar disorder, unspecified; K21.9 Gastro-esophageal reflux disease without esophagitis; G47.33 Obstructive sleep apnea (adult) (pediatric); R82.5 Elevated urine levels of drugs, medicaments and biological substances; Z87.891 Personal history of nicotine dependence; Z79.01 Long term (current) use of anticoagulants; Z79.02 Long term (current) use of antithrombotics/antiplatelets; Z79.51 Long term (current) use of inhaled steroids; Z79.899 Other long term (current) drug therapy; Z95.828 Presence of other vascular implants and grafts; Z85.51 Personal history of malignant neoplasm of bladder; Z86.73 Personal history of transient ischemic attack (TIA), and cerebral infarction without residual deficits
CPT/HCPCS: 36415; 71046; 71275; 74018; 74174; 80048; 80053; 80307; 81001; 82948; 83036; 83605; 83690; 83735; 84100; 84484; 85025; 85610; 85730; 87040; 87086; 87637; 93005; 94640; 96361; 96365; 96366; 96367; 96374; 96375; 96376; 99285; A9270; G0378; G0379; J0360; J0456; J0696; J1171; J1815; J2405; J2550; J2765; J2919; J3010; J3475; J7030; J8540; Q9967

== ENCOUNTER 2024-12-24 12:45 | Outpatient (CLI) | payer OTHER, SELFPAY ==
--- NOTE | ~2024-12-24 | XR_ITS ---
HISTORY: Lumbar radicular pain and backache COMPARISON: None. TECHNIQUE: 4 view lumbar spine. FINDINGS: Lumbar vertebral bodies are normally aligned. There are 5 non-rib bearing lumbar vertebral bodies. Disc spaces and vertebral body heights are well maintained. There are no lytic or sclerotic lesions. No acute compression fracture. Osteophytes are detected along with endplate changes and facet arthropathy. Vascular stent projects anteriorly. IMPRESSION: Degenerative disease without acute fracture. Reviewed, dictated and finalized at location A. ETING SALES 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
--- OUTSIDE RECORDS SUMMARY | 2024-12-24 12:52 | XMS_ITS | Patient Health Record ---
Author Organization [facility] Address [address] [place] [address] Care Team Providers Care Board Writer Name Role Phone Earl Bhandari Unavailable [phone] REASON FOR REFERRAL No Information PLAN OF TREATMENT No Information Insurance Providers Payer Name Payer Address Payer Phone Subscriber Number Group Number Insured Name Patient Relationship to Insured Coverage Start Date Coverage End Date [employer] [address] [place] [id number] Rody Zaidi Self - patient is the insured
--- OUTSIDE RECORDS SUMMARY | 2024-12-24 12:52 | XMS_ITS | Data Portability ---
Author Organization [facility] Address [address] [place] [address] Care Team Providers Care 5Th Grade Teacher Name Role Phone RHONDA SALDIVAR Primary Care Provider Assessment Encounter Date Assessment Date Assessment [...] 022 [email or web address], [address], [place], [address], 18:00:06 Medication Orders nystatin-tr iamcinolone 100,000 unit/g-0.1 % topical cream 2019 020 [email or web address] 1 [id number], [address], [place], [place], [id number], 09:52:36 Patient TargetsNo targets recorded. Patient Instructions Encounter Date Encounter Id Patient Instructions Last Modified By Organization Details Last Modified Time 10/23/2020 [id number] Suggest Calcium with Vitamin D if not [...] and labor atory findi ngs. See https ://[employer] [place]/s ites/ defau lt/fi les/2 018-0 3/AW- 01183 _002_ 01.pd f for tani guillaume. Test perfo rmed by [facility] d/b/[facility], [address], [facility] [place] [address] , Иван Lynn ra, DO, Labor atory [facility]. HPV High Risk *HPV NOT DETEC LEAH [...] labor atory findi ngs. See https ://ww w[employer]arm[employer],. [employer]/s ites/ defguille lt/fi les/2 018-0 3/AW- 42196 _002_ 01.pd f for tani estevezr dee markell. Test perfo rmed by [facility], d/b/a [facility], [address], [place] [address] , Иван Lynn ra, DO, Labor atory Dire tor. End of Repor t Techn ical servi opal provi ded by [facility] [employer] [facility], d/b/a [facility] roup, [address] [place] [address] George Ortiz MD, [facility]. Case revie wed and diagn osis rende red at [facility] [employer] d/b/a [employer], [address] [place] [address] George Ortiz MD, [facility]. CONFI DENTI AL Not Available [facility] ([facility]) [address] [place] [address], [place], [address], 10/25/2020 10:06:32 10/23/20 20 10/24/2020 HPV DNA, high- risk HPV high risk NOT DETECT ED normal Not Available [facility] ([facility]) [address] [place] [address], [place], [address], 10/25/2020 10:06:32 10/29/20 21 10/29/2021 IMAGE GUIDE [...] as clini david avitia nted. Not Available [facility] (Lab) [address], [place], [address], 11/07/2021 19:04:07 10/29/20 21 10/29/2021 TRICH OMONA S VAGIN LUIS (RRNA ) trichomonas vaginalis ribosomal RNA (rrna) Negati ve negati ve Not Available [facility] (Lab) [address], [place], [address], 11/07/2021 19:04:08 10/29/20 21 10/29/2021 CT/GC ([place]) , THINP REP VIAL chlamydia trachomatis, PCR Negati ve negati ve Not Available [facility] (Lab) [address], [place], [address], 11/07/2021 19:04:08 10/29/20 21 10/29/2021 CT/GC ([place]) , THINP REP VIAL neisseria gonorrhoeae, PCR Negati ve negati ve Not Available [facility] (Lab) [address], [place], [address], 11/07/2021 19:04:08 07/06/20 22 07/06/2022 IMAGE GUIDE [...] as clini david avitia nted. Not Available [facility] [address], [place], [address], 07/10/2022 15:59:01 10/23/20 21 10/22/2021 MAMMO , scree derrell, bilat eral No observ ation record ed. [facility] [address], [place], [address], 10/24/2021 10:08:08 07/27/20 22 07/27/2022 US, trans vagin al No observ ation record ed. [email or web address] [place] [address], [place], [address], 07/27/2022 17:38:37 07/27/20 22 07/27/2022 US, trans vagin al No observ ation record ed. [email or web address] [address], [place], [address], 07/27/2022 20:36:24 Result Notes None recorded. Problems Name Problem SNOMED Code Status Onset Date Resolution Date Notes Provider Name and Address Organization Details Recorded Time SNOMED CT Concept Completed 201810/29/2021 Encntr for aviation medicine specialist exam (general ) (routine ) w/o abn findings ;Recorde d Elsewher e: No [facility] S ource: EHR Auto Phone Installer vidal: N Practi ce ID: [id number] Ra lable Time: 08:30:00 AM Karishma Parra [facility] [place] - [facility] 09:55:06 Screenin g for malignan t neoplasm of cervix Completed 201410/29/2021 Screenin g for malignan t neoplasm s of the cervix;R ecorded Elsewher e: No Locat ion: May zaman [facility] S ource: EHR Auto Phone Installer vidal: N Roslynti ce ID: [id number] Ra lable Time: 12:00:00 PM Karishma Garciatz [facility] 09:55:01 Body mass index 30+ - obesity [id number] Completed 201710/29/2021 Body mass index (BMI) 37.0-37. 9, adult;Re corded Elsewher e: No Locat ion: [facility] S ource: EHR Auto Phone Installer vidal: N Roslynti ce ID: [id number] Ra lable Time: 10:30:00 AM Karishma Parra [facility] 09:54:[address] Concept Completed 201810/29/2021 Encntr for general adult medical exam w/o abnormal findings ;Recorde d Elsewher e: No Locat ion: [facility] S ource: EHR Auto Phone Installer vidal: N Roslynti ce ID: 0001 Ra lable Time: 08:30:00 AM Karishma Parra [facility] 09:55:04 Proteinu giovani [id number] Completed 201310/29/2021 Proteinu giovani;Judah rded Elsewher e: No Locat ion: [facility] S ource: EHR Auto Phone Installer vidal: N Practi ce ID: [id number] Ra lable Time: 09:00:00 AM Karishma Garciatz [facility] 09:54:59 Infectio n screenin g Completed 201710/29/2021 Encounte r for screenin g for oth infec/pa rastc diseases ;Recorde d Elsewher e: No [facility]: EHR Auto Phone Installer vidal: N Nuria ce ID: [id number] Ra lable Time: 09:27:27 AM Karishma ulrich, [facility] 1 09:54:58 Adult health examinat ion Completed 201210/29/2021 Routine Medical Exam;Rec orded Elsewher e: No Locat ion: [facility] S ource: EHR Auto Phone Installer vidal: N Nuria ce ID: [id number] Ra lable Time: 09:00:00 AM Karishma ulrich, [facility] 1 09:54:47 Screenin g for malignan t neoplasm of rectum Completed 201410/29/2021 Screenin g for malignan t neoplasm s of the rectum;R ecorded Elsewher e: No Locat ion: [facility] S ource: EHR Auto Phone Installer vidal: N Nuria ce ID: [id number] Ra lable Time: 12:00:00 PM Karishma Parra [facility], [facility] 1 09:55:03 Dietary manageme nt surveill ance Completed 201310/29/2021 Dietary surveill ance and counseli ng;Recor ded Elsewher e: No Locat ion: [facility] S ource: EHR Auto Phone Installer vidal: N Nuria ce ID: [id number] Ra lable Time: 09:00:00 AM Karishma ulrich [facility] 1 09:54:53 Blood leukocyt e number above referenc e range [id number] Completed 201710/29/2021 Elevated white blood cell count, unspecif ied;Judah rded Elsewher e: No Locat ion: [facility] S ource: EHR Auto Phone Installer vidal: N Nuria ce ID: [id number] Ra lable Time: 10:30:00 AM Karishma ulrich [facility] 1 09:54:55 Speciali zed medical examinat ion Completed 201210/29/2021 Gynecolo gical Examinat ion;Judah rded Elsewher e: No Locat ion: [facility] S ource: EHR Auto Phone Installer vidal: N Roslynti ce ID: 0001 Ra lable Time: 09:00:00 AM Karishma ulrich [facility] 1 09:55:08 Condylom a acuminat um of the anogenit al region [id number] Completed 201210/29/2021 Condylom a acuminat um;Recor ded Elsewher e: No Locat ion: [facility] S ource: EHR Auto Phone Installer vidal: N Roslynti ce ID: 0001 Ra lable Time: 11:30:00 AM Karishma ulrich [facility] 09:54:52 Vaginola bial hernia Completed 201710/29/2021 Other specifie d noninfla mmatory disorder s of vagina;R ecorded Elsewher e: No Locat ion: [facility] S ource: EHR Auto Phone Installer vidal: N Nuria ce ID: 0001 Ra lable Time: 10:00:00 AM Karishma ulrich [facility] 09:55:10 Problem Notes None recorded. Procedures Surgical History Date Name Laterality Status Provider Name and Address Organization Details Recorded Time 10/29/20 21 Date of Last Pap Smear completed Karishma Parra [facility] 10/29/2021 09:55:19 10/23/20 21 Date of Last Mammogram completed Karishma Parra [facility] 10/28/2021 17:21:51 11/15/19 21 cardiac catheterization completed Karishma Parra [facility] 11/11/2021 11:02:03 09/04/20 20 insertion of stent into vein completed Karishma Parra [facility] 10/23/2020 10:26:11 11/15/19 17 [facility] 06/18[facility]2020 20:03:38 11/15/19 16 insertion of catheter into cardiac ventricle for stimulation using fluoroscopy guidance completed [facility] 06/18/2020 20:06:13 03/15/20 15 fluoroscopic angiography of carotid artery with contrast completed [facility] 06/18/2020 20:00:13 11/15/19 14 myringotomy with tubes discharge education completed [facility] 06/18/2020 20:02:31 11/15/19 14 Unlisted px cardiac surgery completed [facility] 06/18/2020 20:04:53 08/07/20 13 removal of mole of skin by excision completed [facility] 11/11/2021 10:59:18 11/15/19 02 biopsy completed [facility] 06/18/2020 20:02:54 07/16/19 90 ligation of bilateral fallopian tubes completed [facility] 06/18/2020 20:03:10 11/15/18 90 section completed [facility] 06/18/2020 20:03:24 11/15/18 85 termination of completed [facility] 10/28/2021 17:25:18 11/15/18 75 examination of toe completed [facility] 06/18/2020 19:58:11 Imaging Results Imaging Date Name Status LastModified by Organization Details LastModified Time 10/22/2021 MAMMO, screening, bilateral completed [place] [address], [place], [address], 10/24/2021 10:08:08 07/27/2022 US, transvaginal completed [email or web address] [place] [address], [place], [address], 07/27/2022 17:38:37 07/27/2022 US, transvaginal completed [email or web address] [facility], [place], [address], 07/27/2022 20:36:24 Procedure Notes None recorded. Medical Equipment None Reported. Allergies Allergen ID Allergen Name Allergen Category Reaction Reaction Severity Criticality Documentation Date Start Date Code Code System Note Provider Name and Address Organization Details Recorded Time 10567 haloperid ol medicatio n Not available Not available Not available 11/01/2020 5093 RxNorm React ion: face drags ; Comme nt: [facility]at [facility] C[facility] sativ e Agent : Haldo l; Not Available [facility] 0 14:20:44 1569 Product containin g penicilli n and antibioti c (product) medicatio n Not available Not available Not available 06/18/2020 92016 05 SNOMED Karishma Parra [facility] 0 19:43:06 Medications Name Sig Start Date Stop Date Status Note LastModified by Organization Details LastModified Time Singulair 10 mg tablet take 1 tablet by oral route every day in the evening active Prescrib ed Elsewher e: Yes Loca tion: [facility] odify By: [email or web address] trick En counter DateTime : 07/27/20 13 09:00:00 AM Not Available Not Available Not Available losartan 50 mg tablet take 1 tablet by oral route every day 10/29 completed Prescrib ed Elsewher e: Yes Loca tion: [facility] M odify By: [email or web address] trick En [...] Prescrib ed Elsewher e: Yes Loca tion: [facility] odify By: parker orona DateTime : 08/01/20 [...] Prescrib ed Elsewher e: Yes Loca tion: [facility] M odify By: smcaley Marquitate r DateTime : 08/11/20 16 09:30:00 AM [...] Prescrib ed Elsewher e: Yes Loca tion: [facility] odify By: smcaley Duglas r DateTime : [...] Prescrib ed Elsewher e: Yes Loca tion: [facility] odify By: kmkirkpa trick En counter DateTime [...] Prescrib ed Elsewher e: No Locat ion: [facility] odify By: juan miguel tirado DateTime : 09/01/20 19 08:30:00 AM Not Available Not Available Not Available aspirin 500 mg tablet take 2 tablet by oral route every 6 hours as needed active Prescrib ed Elsewher e: Yes Loca tion: [facility] odify By: [email or web address] trick En counter DateTime : 08/01/20 14 [...] Prescrib ed Elsewher e: No Locat ion: [facility] odify By: [email or web address] trick En counter DateTime [...] Prescrib ed Elsewher e: Yes Loca tion: Spencer kulwinder [facility] odify By: parker Ardon r DateTime : 08/11/20 16 09:30:00 AM Not Available Not Available Not Available Percocet 10 mg-325 mg tablet take 1 tablet by oral route every 6 hours as needed 10/29 completed Prescrib ed Elsewher e: Yes [facility] By: parker Ardon r DateTime : 08/11/20 16 09:30:00 AM Not Available Not Available Not Available Prilosec 10 mg capsule,d elayed release take 2 capsule by oral route every day before a meal 09/01 completed Prescrib ed Elsewher e: Yes Loca tion: [facility] odify By: clifton Ardon r DateTime : [...] Prescrib ed Elsewher e: Yes [facility] By: parker Ardon r DateTime : [...] Prescrib ed Elsewher e: Yes Loca tion: [facility] odify By: smcaley Encounte r DateTime : 08/05/20 15 12:00:00 PM [...] Prescrib ed Elsewher e: Yes Loca tion: [facility] odify By: kmkirkpa trick En counter DateTime [...] by oral route every day at bedtime 05/16 completed Prescrib ed Elsewher e: Yes Loca tion: [facility] odify By: federico Zaman bashir DateTime : 08/11/20 16 09:30:00 AM [...] Prescrib ed Elsewher e: Yes Loca tion: [facility] odify By: parker Encounte r DateTime : [...] Prescrib ed Elsewher e: Yes [facility]ify By: parker Encounte r DateTime : [...] Elsewher e: Yes Loca tion: May zaman [facility] odify By: parker Encounte r DateTime : [...] Elsewher e: Yes Loca tion: May [facility] odify By: [email or web address] Encounte r DateTime : 08/11/20 16 09:30:00 AM Not Available Not Available Not Available Fenoglide 40 mg tablet take 2 tablet by oral route every day 08/01 completed Prescrib ed Elsewher e: Yes Loca tion: May zaman [facility] odify By: kmkirkpa trick En counter DateTime : 07/27/20 13 09:00:00 AM Not Available Not Available Not Available Flovent Diskus 100 mcg/actua tion powder for inhalatio n inhale 1 puff by inhalati on route 2 times every day 08/01 completed Prescrib ed Elsewher e: Yes Loca tion: May zaman [facility] odify By: kmkirkpa trick En counter DateTime [...] Prescrib ed Elsewher e: Yes Loca tion: [facility] M odify By: kmkirkpa trick En [...] Updated DateTime 10/29/2021 156.21 cm 39.6 kg/m2 10071.17 g 120 mm[Hg] 81 mm[Hg] Karishma Parra [facility] 1 09:47:31 Date Recorded Body height Body mass index (BMI) Body weight Systolic blood pressure Diastolic blood pressure Provider Name and Address Organization Details Last Updated DateTime 07/04/2022 156.21 cm 35.9 kg/m2 11834.33 g 113 mm[Hg] 71 mm[Hg] Loly Cárdenas [facility] 2 10:37:42 Date Recorded Body height Body mass index (BMI) Body weight Systolic blood pressure Diastolic blood pressure Provider Name and Address Organization Details Last Updated DateTime 08/07/2022 156.21 cm 36.6 kg/m2 06227.7 g 132 mm[Hg] 84 mm[Hg] Leilani Gramajo [facility] 2 15:20:32 Date Recorded Body height Body mass index (BMI) Body weight Systolic blood pressure Diastolic blood pressure Provider Name and Address Organization Details Last Updated DateTime 10/23/2020 156.21 cm 37.2 kg/m2 07454.47 g 139 mm[Hg] 97 mm[Hg] Karishma Parra [facility] 0 10:23:31 Social History Question Answer Notes LastModified by [employer] Details LastModified Time Tobacco Smoking Status Current Every Day Smoker Not Available [facility] 09/17/2020 03:28:11 What Is Your Level Of Alcohol Consumption? Occasional [id number] Information not available 09/17/2020 Which Illicit Or Recreational Drugs Have You Used? Marjuania [id number] Information not available 09/17/2020 Do You Or Have You Ever Used E-cigarettes Or Vape? Never Used Electronic Cigarettes [id number] Information not available 09/17/2020 What Was The Date Of Your Most Recent Tobacco Screening? 10/23/2020 [email or web address] Information not available 10/23/2020 Do You Or Have You Ever Used Smokeless Tobacco? Never Used Smokeless Tobacco [id number] Information not available 09/17/2020 Sex: Unknown Functional Status Question Answer Note LastModified by [email or web address] Details LastModified Time What is your exercise level? Occasional [id number] Information not available 09/17/2020 Mental Status None recorded. Family History Relationship Description Onset Age of this Age Resolved Age Notes LastModified by Organization Details LastModified Time Paternal Grandfather Diabetes mellitus [email or web address] Not available 06/18 19:56:07 Paternal Grandmother Diabetes mellitus Not available 06/18 19:56:07 Paternal Uncle Diabetes mellitus [email or web address] Not available 06/18 19:56:07 Sister Disorder of thyroid gland [email or web address] Not available 06/18 19:56:18 Sister Malignant tumor of breast Not available 06/18 19:56:25 Sister Malignant neoplasm of urinary bladder Not available 10/23 11:48:49 Notes:Paternal grandfather: Diabetes [...] Diagnosis/Indication Diagnosis SNOMED-CT Code Diagnosis ICD10 Code Diagnosis Note [id number] Jacquelin Dahl CNM [place] [address],[facility] [place] [address] 06/14/2020 09:52:15 06/14/2020 11:06:07 Candidiasis of skin 94766515 B37.2 Acute urin parvin tract infection 193764075 N39.0 [id number] Jacquelin Dahl CNM [place] [address],[place] [address] 10/23/2020 10:08:50 10/23/2020 11:15:06 Gynecologic examination 46168993 Z01.419 Candidiasis of skin 4988 3006 B37.2 [id number] Jacquelin Dahl [facility] [address],[place] [address] 10/29/2021 09:23:52 10/29/2021 10:13:55 Gynecologic examination 45483325 Z01.419 [id number] Vicente Guidry MD [place] [address],[place] [address] 07/04/2022 10:17:23 07/04/2022 11:32:56 Cyst of ovary 93125185 N83.209 Pain in pelvis 92421799 R10.2 o return in 3 months. [id number] Vicente Guidry MD [place] [address],[place] [address] 07/27/2022 11:58:57 07/27/2022 12:52:30 Pain in pelvis 64931068 R10.2 R93.89 is a 22-year-ol d female who presents complainin g of reduced libido. This is primarily been since the the introducti on of oral contracept roman pills at 35 mcg estrogen. We discussed libido. We discussed the medication was started at that time which included metformin and spironolac tone. Talked about breast reduction and its affect on hyperprola ctinemia. She has a mildly elevated prolactin. She also has elevated testostero ne. She has polycystic ovarian syndrome. Will repeat sex hormones. Spent over 20 minutes face-to-fa ce. More than 50% was counseling . To start a 20 mcg pill, to return in 3 months. [id number] Vicente Guidry MD [place] [address],[place] [address] 08/07/2022 14:30:19 08/07/2022 16:28:20 Pain in pelvis 60549598 R10.2 R93.89 Patient is 61-year-ol d female who presents for follow-up after identifica tion of a pelvic cyst/ ovarian cyst. This cyst was identified emergency department . We reviewed the ultrasound results that we obtained here. The ultrasound is essentiall y normal with a small cystic structure on [...] symptoms. She will follow up as needed. Health Concerns Section Related Observation LastModified by Organization Detai ls LastModified Time None Recorded Concern Status LastModified by Organization Details LastModified Time None Recorded Advance Directives Directive None Recorded Payers Encounter Date Sequence Insurance Name Policy Number Policy Larsen Covered Member ID Larsen Member ID Guarantor Name 10/23/2020 1 [facility] PRIOR TO 05/15/2021 (MEDICAID REPLACEMENT - HMO) Rody Zaidi [id number] 10/29/2021 1 [facility] ON OR AFTER 05/15/21 (MEDICAID REPLACEMENT - HMO) Rody Zaidi [id number] 07/04/2022 1 [facility] ON OR AFTER 05/15/21 (MEDICAID REPLACEMENT - HMO) Rody Evanso [id number] 07/27/2022 1 [facility] ON OR AFTER 05/15/21 (MEDICAID REPLACEMENT - HMO) Rody Zaidi [id number] 08/07/2022 1 [facility] ON OR AFTER 05/15/21 (MEDICAID REPLACEMENT - HMO) Rody Evanso [id number] Notes Date Note Type Note Provider Name and Address Organization Details Recorded Time 10/23/2020 text/html Annual GYNReport ed bypatient.Notes:mamm ogram due 01/2021, having a cardiac cath in a few days, hx blood clots, stents sees multiple specialties, has had recent colonoscopy, sbe at home, only aviation medicine specialist complaint is some external irritation Jacquelin Dahl CNM [address], [place], [address], [facility] 10/23/2020 11:15:04 10/29/2021 text/html Annual GYNReport [...] and std testing, mamogram just done needs therese saw pcp already for the year Jacquelin Dahl CNM [address], [place], [address], [facility] 10/29/2021 09:57:51 07/04/2022 text/html This patient is a 61-year-old female presents for follow-up on ovarian cyst . She reports.flank and pelvic pain on the left side. bonillaitent, adilene,. We discussed CT scan results. We discussed how decisions are made regarding ovarian cyst. We require pelvic ultrasound. She denies any vaginal bleeding. She denies any vaginal discharge. She denies any nausea, vomiting, fever, chills. She denies any chest pain or shortness of breath today. Vicente Guidry MD [address], [place], [address], [facility] 08/07/2022 16:06:55 08/07/2022 text/html [...] needed. Vicente Guidry MD [address], [place], [address], [facility] 08/07/2022 16:12:52 OBGyn Episode Ob Episode Information Episode Created Date Number of Fetuses Patient Bloodtype Patient rh Status Prepregnancy Weight lbs Domestic Partner Domestic Partner Phone Father Name Machine Pack Assembler Status 06/18/20 1 CLOSED Fetus Data First Name Last Name Admitted to NICU Weight (g) Sex Living Outcome Pediatric Complications Fetus ID Race Codes Race Delivery Type 3231.84 3 F Full Term 3523 Primary Junior Calculation Initial Junior Date Initial Exam Date Initial Exam Provider Initial Ultrasound Date Last Menstrual Period Date Ultra Sound Weeks Gestation 0 Eighteen To Twenty Week Junior Update [...] Domestic Partner Domestic Partner Phone Father Name Machine Pack Assembler Status 06/18/20 1 CLOSED Fetus Data First Name Last Name Admitted to NICU Weight (g) Sex Living Outcome Pediatric Complications Fetus ID Race Codes Race Delivery Type , Induced 3522 Junior Calculation Initial Junior Date Initial Exam Date Initial Exam Provider Initial Ultrasound Date Last Menstrual Period Date Ultra Sound Weeks Gestation 0 Eighteen To Twenty Week Junior Update [...] Domestic Partner Domestic Partner Phone Father Name Machine Pack Assembler Status 06/18/20 1 CLOSED Fetus Data First Name Last Name Admitted to NICU Weight (g) Sex Living Outcome Pediatric Complications Fetus ID Race Codes Race Delivery Type 3316.66 4704 M Full Term 3524 Vaginal Delivery Junior Calculation Initial Junior Date Initial Exam Date Initial Exam Provider Initial Ultrasound Date Last Menstrual Period Date Ultra Sound Weeks Gestation 0 Eighteen To Twenty Week Junior Update [...]
--- OUTSIDE RECORDS SUMMARY | 2024-12-24 12:52 | XMS_ITS | Encounter Summary ---
Author Organization [facility] Address [address] [place] [address] Care Team Providers Care Padding Machine Operator Name Role Phone Asa Mcnamara MD Unavailable [phone] Neva Holden MD Primary Care Provider Encounter Details Date Type Department Care Team (Late st Contact Info) Description 07/03/2020 Abstract [facility] at [address] [address] Rafael Thakur MA Social History Tobacco Use Types Packs/Day Years Used Date Smoking Tobacco: Every Day Cigarettes Smokeless Tobacco: Never Comments:1 pk day Alcohol Use Standard Drinks/Week Comments No 0 (1 standard drink = 0.6 oz pur e alcohol) Comments Unknown Sex and Gender Information Value Date Recorded Sex Assigned at Female 12/06/2019 3:36 PM EQUIPMENT INSTALLATION PROFESSIONAL Legal Sex Female 5:20 PM CDT Gender Identity Female 12/06/2019 3:36 PM EQUIPMENT INSTALLATION PROFESSIONAL Sexual Orientation Straight 12/06/2019 3: 36 PM EQUIPMENT INSTALLATION PROFESSIONAL Occupation Industry Job Start Date Job [...] on filedocumented in this encounter Care Teams Padding Machine Operator Relationship Specialty Start Date End Date Neva Holden MD [facility] [address] [place] [id number] PCP - General FAMILY PRACTICE 02/14/20 Asa Mcnamara MD Three [facility]. [address] [place] [address] Albert Mcat Tutor CARDIOVASCULAR DISEASE 05/15/16 documented as of this encounter
--- OUTSIDE RECORDS SUMMARY | 2024-12-24 12:52 | XMS_ITS | Continuity of Care Document ---
Author Organization [facility] Address [address] [place] [address] [place] [address] Phone Care Team Providers Care Overcoil Stepper Name Role Phone William Garay MD Unavailable Unavailable Allergies, Adverse Reactions, Alerts Substance Reaction Status Criticality risperidone Active No Information KETOROLAC TROMETHAMINE Active No In formation penicillin G Active No Information Medications Medication Instructions Dosage Effective Dates (start - stop) Status Comments pravastatin 40 mg tablet take 1 tablet by oral route every day 40 MG - Active [place] 10 mg-325 mg tablet take 1 by [...] Diagnoses Date Provider Providers Copied on Encounter [facility], [address], [place], [address], [place] tel:[phone] [facility] No Information 5 Jarrod Thomas. [address], [place], [place], [address] , [place]. tel:[phone] Referring Provider: William Garay, [address], [place], [place], [address]. tel:[phone] OFFICE/OUTPA TIENT VISIT, [facility], [address], [place], [place], [address], [place] tel:[phone] [facility] PRES (chief complaint) HLP (chief complaint) back pain (chief complaint) Anxiety (chief complaint) Dietary surveillance and counselingOther encephalopathyBack painProteinuria 5 Jarrod Thomas. [address], [address], [place], [place], [address] , [place]. tel:[phone] Referring Provider: Maurizio Love [address], [place], [place], [address]. tel:[phone] [facility], [address], [place], [place], [address], [place] tel:[phone] [facility] No Information 5 Jarrod Thomas. [address], [place], [place], [address] , [place]. tel:[phone] OFFICE/OUTPA TIENT VISIT, [facility], [address], [place], [place], [address], [place] tel:[phone] [facility] chronic pain (chief complaint) DM (chief complaint) CVA (chief complaint) Dietary surveillance and counselingAsthmaCVA , AcuteGERDLumbago 5 Jarrod Thomas. [address], [place], [place], [address] , [place]. tel:[phone] Referring Provider: Maurizio Love [address], [place], [place], [address]. tel:[phone] OFFICE/OUTPA TIENT VISIT, [facility], [address], [place], [place], [address], [place] tel:[phone] [facility] HLP (chief complaint) GERD (chief complaint) DM (chief complaint) CVA (chief complaint) CVA, AcuteDiabetes Mellitus, Adult Onset, UncontrolledOther and unspecified hyperlipidemiaGERDD ietary surveillance and counseling 5 Jarrod Thomas. [address], [place], [place], [address] , [place]. [phone] Referring Provider: Maurizio Love [address], [place], [place], [address]. tel:[phone] OFFICE/OUTPA TIENT VISIT, [facility], [address], [place], [place], [address], [place] tel:[phone] [facility] leg pain (chief complaint) chronic pain (chief complaint) GERD (chief complaint) HLP (chief complaint) headache (chief complaint) Dietary surveillance and counselingPain in limbOther and unspecified hyperlipidemiaHeada cheGERD 5 Jarrod Thomas. [address], [place], [place], [address] , [place]. tel:[phone] Referring Provider: Maurizio Love [address], [place], [address]. tel:[phone] OFFICE/OUTPA TIENT VISIT, [facility], [address], [place], [address], [place] tel:[phone] [facility] GERD (chief complaint) chronic pain (chief complaint) COPD (chief complaint) Dietary surveillance and counselingGERDLumba goCOPDOpioid type dependence, unspecified use 5 Jarrod Thomas. [address], [place], [address] , [place]. tel:[phone] Referring Provider: Maurizio Love [address], [place], [place], [address]. tel:[phone] [facility], [address], [place], [address], [place] tel:[phone] [facility] No Information 5 Jarrod Thomas. [address], [place], [place], [address] , [place]. tel:[phone] OFFICE/OUTPA TIENT VISIT, [facility], [address], [place], [place], [address], [place] tel:[phone] [facility] HLP (chief complaint) chronic pain (chief complaint) HTN (chief complaint) anxiety (chief complaint) Dietary surveillance and counselingCervicalg iaOther and unspecified hyperlipidemiaHyper tension, UnspecifiedGenerali zed anxiety disorder 5 Jarrod Thomas. [address], [address], [place], [place], [address] , [place]. [phone] Referring Provider: Maurizio Love [address], [place], [place], [address]. tel:[phone] OFFICE/OUTPA TIENT VISIT, [facility], [address], [place], [place], [address], [place] tel:[phone] [facility] HLP (chief complaint) chest pain (chief complaint) GERD (chief complaint) HTN (chief complaint) Chest Pain, UnspecifiedBody Mass Index 38.0-38.9, adultHypertension, UnspecifiedGERD 4 Jarrod Thomas. [address], [place], [place], [address] , [place]. [phone] Referring Provider: Maurizio Love [address], [place], [place], [address]. tel:[phone] OFFICE/OUTPA TIENT VISIT, [facility], [address], [place], [place], [address], [place] tel:[phone] [facility] chornic pain (chief complaint) HLP (chief complaint) chest pain (chief complaint) Dietary surveillance and counselingChest Pain, UnspecifiedAsthmaPa in in joint involving lower leg 4 Jarrod Thomas. [address], [place], [place], [address] , [place]. [phone] Referring Provider: Maurizio Love [address], [place], [place], [address]. tel:[phone] OFFICE/OUTPA TIENT VISIT, [facility], [address], [place], [address], [place] tel:[phone] [facility] chronic pain (chief complaint) HLP (chief complaint) knee pain (chief complaint) sinus (chief complaint) Dietary surveillance and counselingCHRONIC PAIN NECOther and unspecified hyperlipidemiaPain in joint involving lower legSinusitis, Acute 4 Jarrod Thomas. [address], [place], [place], [address] , [place]. tel:[phone] Referring Provider: Maurizio Love [address], [place], [place], [address]. tel:[phone] OFFICE/OUTPA TIENT VISIT, [facility], [address], [place], [address], [place] tel:[phone] [facility] sick (chief complaint) HLP (chief complaint) chornic pain (chief complaint) Dietary surveillance and counselingViral Infection, UnspecifiedOther and unspecified hyperlipidemiaLumba go 4 Jarrod Thomas. [address], [place], [place], [address] , [place]. tel:[phone] Referring Provider: Maurizio Love [address], [place], [place], [address]. tel:[phone] OFFICE/OUTPA TIENT VISIT, [facility], [address], [place], [place], [address], [place] tel:[phone] [facility] HLP (chief complaint) Hyperglyce adi (chief complaint) chornic pain (chief complaint) asthma (chief complaint) Dietary surveillance and counselingOther and unspecified hyperlipidemiaMetab olic SyndromeLumbagoAsth ma 4 Jarrod Thomas. [address], [place], [place], [address] , [place]. tel:[phone] Referring Provider: William Garay, [address], [place], [place], [address]. tel:[phone] OFFICE/OUTPA TIENT VISIT, EST [facility], [address], [place], [place], [address], [place] tel:[phone] [facility] asthma (chief complaint) GERD (chief complaint) HLP (chief complaint) chornic pain (chief complaint) Dietary surveillance and counselingAsthmaGER DOther and unspecified hyperlipidemiaLumba go 4 Jarrod Thomas. [address], [place], [place], [address] , [place]. [phone] Referring Provider: Maurizio Love [address], [place], [place], [address]. tel:[phone] PREV VISIT, EST, AGE 40-64 [facility], [address], [place], [place], [address], [place] tel:[phone] [facility] Physical (chief complaint) Dietary surveillance and counselingRoutine Medical ExamRoutine Medical Exam 4 Jarrod Thomas. [address], [place], [place], [address] , [place]. [phone] Referring Provider: William Garay, [address], [place], [place], [address]. tel:[phone] OFFICE/OUTPA TIENT VISIT, EST [facility], [address], [place], [place], [address], [place] tel:[phone] [facility] carpal tunnel (chief complaint) chornic pain (chief complaint) HLP (chief complaint) asthma (chief complaint) Dietary surveillance and counselingCarpal Tunnel SyndromeAsthmaOther and unspecified hyperlipidemiaCHRON IC PAIN NEC 4 Jarrod Thomas. [address], [place], [place], [address] , [place]. [phone] Referring Provider: Maurizio Love [address], [place], [place], [address]. tel:[phone] OFFICE/OUTPA TIENT VISIT, [facility], [address], [place], [address], [place] tel:[phone] [facility] chornic pain (chief complaint) numbness (chief complaint) HLP (chief complaint) asthma (chief complaint) Disturbance of skin sensationLumbagoPVD with ClaudicationAsthma 4 Jarrod Thomas. [address], [place], [place], [address] , [place]. tel:[phone] Referring Provider: Maurizio Love [address], [place], [place], [address]. tel:[phone] OFFICE/OUTPA TIENT VISIT, [facility], [address], [place], [address], [place] tel:[phone] [facility] sinus (chief complaint) Dietary surveillance and counselingSinusitis , Acute 4 Jarrod Thomas. [address], [place], [place], [address] , [place]. tel:[phone] Referring Provider: Maurizio Love [address], [place], [place], [address]. tel:[phone] OFFICE/OUTPA TIENT VISIT, [facility], [address], [place], [place], [address], [place] tel:[phone] [facility] chronic pain (chief complaint) HLP (chief complaint) Dietary surveillance and counselingLumbagoPa in in joint involving lower legOther and unspecified hyperlipidemia 4 Jarrod Oquendo [address], [place], [place], [address] , [place]. tel:[phone] Referring Provider: Maurizio Love [address], [place], [place], [address]. tel:[phone] OFFICE/OUTPA TIENT VISIT, [facility], [address], [place], [address], [place] tel:[phone] [facility] chronic pain (chief complaint) HLP (chief complaint) HTN (chief complaint) Dietary surveillance and counselingHypertens ion, UnspecifiedOther and unspecified hyperlipidemiaCHRON IC PAIN NEC 4 Jarrod Thomas. [address], [place], [address] , [place]. tel:[phone] Referring Provider: [address], [place], [place], [address]. tel:[phone] OFFICE/OUTPA TIENT VISIT, [facility], [address], [place], [place], [address], [place] tel:[phone] [facility] chronic pain (chief complaint) HLP (chief complaint) tobacco (chief complaint) ear infection (chief complaint) Dietary surveillance and counselingCHRONIC PAIN NECOther and unspecified hyperlipidemiaUnspe cified otitis media 4 Jarrod Thomas. [address], [place], [place], [address] , [place]. [phone] Referring Provider: Maurizio Love [address], [place], [place], [address]. tel:[phone] OFFICE/OUTPA TIENT VISIT, [facility], [address], [place], [place], [address], [place] tel:[phone] [facility] chronic pain (chief complaint) GERD (chief complaint) HLP (chief complaint) Dietary surveillance and counselingCervicalg iaHypertension, UnspecifiedOther and unspecified hyperlipidemiaGERD 4 Jarrod Thomas. [address], [place], [place], [address] , [place]. [phone] Referring Provider: Maurizio Love [address], [place], [place], [address]. tel:[phone] OFFICE/OUTPA TIENT VISIT, [facility], [address], [place], [place], [address], [place] tel:[phone] [facility] HLP (chief complaint) HTN (chief complaint) Chronic pain (chief complaint) anxiety (chief complaint) GERD (chief complaint) Dietary surveillance and counselingLumbagoOt her and unspecified hyperlipidemiaGERD 3 Jarrod Thomas. [address], [place], [address] , [place]. [phone] Referring Provider: Maurizio Love [address], [place], [place], [address]. tel:[phone] OFFICE/OUTPA TIENT VISIT, [facility], [address], [place], [place], [address], [place] tel:[phone] [facility] sick (chief complaint) hematuria (chief complaint) Dietary surveillance and counselingBronchiti s, AcuteOBSTRUCTIVE CHRONIC BRONCHITIS, WITH (ACUTE) EXACERBATIONViral Infection, UnspecifiedHEMATURI A NOS 3 Jarrod Thomas. [address], [place], [address] , [place]. tel:[phone] Referring Provider: Maurizio Love [address], [place], [place], [address]. tel:[phone] OFFICE/OUTPA TIENT VISIT, [facility], [address], [place], [place], [address], [place] tel:[phone] [facility] chronic pain (chief complaint) HTN (chief complaint) Dietary surveillance and counselingCHRONIC PAIN NECHypertension, Unspecified 3 Jarrod Thomas. [address], [place], [place], [address] , [place]. [phone] Referring Provider: Maurizio [address], [place], [place], [address]. tel:[phone] OFFICE/OUTPA TIENT VISIT, [facility], [address], [place], [place], [address], [place] tel:[phone] [facility] chronic pain (chief complaint) ear pain (chief complaint) Dietary surveillance and counselingLumbagoHy pertension, UnspecifiedOtalgia, unspecified 3 Jarrod Thomas. [address], [place], [place], [address] , [place]. tel: [phone] Referring Provider: Maurizio Love [address], [place], [place], [address]. tel:[phone] OFFICE/OUTPA TIENT VISIT, [facility], [address], [place], [place], [address], [place] tel:[phone] [facility] chronic pain (chief complaint) HLP (chief complaint) asthma (chief complaint) LumbagoAsthmaHypert ension, UnspecifiedOther and unspecified hyperlipidemiaDieta ry surveillance and counseling 3 Jarrod Thomas. [address], [place], [place], [address] , [place]. tel: [phone] Referring Provider: Maurizio Love [address], [place], [place], [address]. tel:[phone] OFFICE/OUTPA TIENT VISIT, [facility], [address], [place], [place], [address], [place] tel:[phone] [facility] chronic pain (chief complaint) otalgia (chief complaint) HLP (chief complaint) rash (chief complaint) Dietary surveillance and counselingCHRONIC PAIN NECOtalgia, unspecifiedHyperten surya, UnspecifiedScabies 3 Jarrod Thomas. [address], [place], [place], [address] , [place]. tel: [phone] Referring Provider: Maurizio Love [address], [place], [place], [address]. tel:[phone] OFFICE/OUTPA TIENT VISIT, [facility], [address], [place], [place], [address], [place] tel:[phone] [facility] chronic pain (chief complaint) lung nodule (chief complaint) HLP (chief complaint) ear pain (chief complaint) Dietary surveillance and counselingCHRONIC PAIN NECAsthmaOtalgia, unspecified 3 Jarrod Thomas. [address], [place], [place], [address] , [place]. tel:[phone] Referring Provider: William Garay, [address], [place], [place], [address]. tel:[phone] OFFICE/OUTPA TIENT VISIT, [facility], [address], [place], [address], [place] tel:[phone] [facility] chronic pain (chief complaint) epipen (chief complaint) Dietary surveillance and counselingCHRONIC PAIN NECLumbagoCervicalg ia 3 Jarrod Thomas. [address], [place], [place], [address] , [place]. tel:[phone] Referring Provider: Maurizio Love [address], [place], [place], [address]. tel:[phone] OFFICE/OUTPA TIENT VISIT, [facility], [address], [place], [address], [place] tel:[phone] [facility] HLP (chief complaint) vitamin d (chief complaint) HTN (chief complaint) lung nodule (chief complaint) Dietary surveillance and counselingOther and unspecified hyperlipidemiaUnspe cified vitamin d deficiencyOther diseases of lung, not elsewhere classified 3 Jarrod Thomas. [address], [place], [place], [address] , [place]. tel:[phone] Referring Provider: Maurizio [address], [place], [place], [address]. tel:[phone] PREV VISIT, NEW, AGE 40-64 [facility], [address], [place], [place], [address], [place] tel:[phone] [facility] PHysical (chief complaint) Dietary surveillance and counselingRoutine Medical ExamRoutine Medical Exam 3 Jarrod Thomas. [address], [place], [place], [address] , [place]. tel:[phone] Referring Provider: Maurizio [address], [place], [place], [address]. tel:[phone] Family History Family Member Type Diagnosis Age At Onset Sister Problem (finding) thyroid Mother Problem (finding) bleeding stomach ulcer Father Problem (finding) Unknown Disease Payers Payer name Insurance type Covered alliance party ID Rizwan jaramillo(s) No Information Social History Type Description Quantity [...] anxiety and depression. Pt tkaes prozac and xanax from psychiatry. Pt doing ok. back pain [...] fine now Instructions Date Instruction Additional Infor seven Prescribed activity/ exercise education Related to Dietary [...]
--- OUTSIDE RECORDS SUMMARY | 2024-12-24 12:52 | XMS_ITS | Clinical Summary ---
Author Organization [facility] Address [address] [place] [address] Care Team Providers Care Line Tender Name Role Phone Asa Mcnamara MD Unavailable [phone] Neva Holden MD Primary Care Provider [phone] Allergies Active Allergy Reactions Criticality Noted Date Comments Codeine Nausea and Vomiting 04/05/2019 Haloperidol Seizure 05/20/2016 Ketorolac Tromethamine Unknown 04/04/2013 Penicillins Hives,Redness High 04/04/2013 Bao-Nw-Ifb-Propyl Ycwhue-Gkt-Fzxyjdwnh Seizure 05/20/2016 Risperidone And Related Hives,Other (see [...] tablet 1 0 Active vitamin D2, ergocalciferol, 47855 UNITS capsule Take 50,000 Units by mouth [...] (primary) hypertension PVD (peripheral vascular disease) Emphysema/COPD ([facility]) Diabetes ([facility]) [facility]roke ([facility] Overview (05/20/2016): h/o Asthma ([facility]) Arthritis GERD (gastroesophageal reflux disease) Migraines Resolved [...] Sex Assigned at Female 12/06/2019 3:36 PM HIDE GRADER Legal Sex Female 5:20 PM CDT Gender Identity Female 12/06/2019 3:36 PM HIDE GRADER Sexual Orientation Straight 12/06/2019 3: 36 PM HIDE GRADER Occupation Industry Job Start Date Job End Date Not on file Not on file Not on file Not on file Last Filed Vital Signs Vital Sign Reading Time Taken Comments Blood Pressure 102/80 06/14/2020 1:49 PM CDT Pulse 98 06/14/2020 1:49 PM CDT Temperature 36.9 C (98.4 F) 12/07/2017 8:32 AM HIDE GRADER Respiratory Rate 18 12/07/2017 8:32 AM HIDE GRADER Oxygen Saturation 95% 02/21/2020 8:36 AM CDT [...] 60-74 years 1-dose series) 2021 COVID-19 Vaccine (1 - 2023- season) 2024 Influenza Adult (#1) 2024 10/21/2016, 12/16/2015, 07/30/2015 Pneumococcal Vaccine: Pediatrics (0 to 5 Years) and At-Risk Patients (6 to 64 Years) (3 of 3 - PPSV23 or PCV20) 2026 10/21/2016, 12/16/2015 Meningococcal B Vaccine Aged Out No l onger eligible based on patient's age to complete this topic Meningococcal Vaccine Aged Out No jodi jasiel eligible based on patient's age to complete this topic RSV Immunizations Under 20 Months Aged Out No longer eligible based on patient's age to complete this topic Procedures Procedure Name Priority Date/Time Associated Diagnosis Comments HEMOGLOBIN, GLYCOSYLATED Routine 05/02/2020 LIPID PANEL Routine 12/19/2018 7:52 AM HIDE GRADER Mixed hyperlipidemia from Last 3 Months or Most Recently Relevant to Health Maintenance Results * HEMOGLOBIN, GLYCOSYLATED (05/02/2020) HGB A1C 7.6 % 05/02/2020 us Doc [facility] LABORATORY Final Result * (ABNORMAL) LIPID PANEL (12/19/2018 7:52 AM HIDE GRADER) CHOLESTEROL 173 <200 MG/DL 12/19/2018 8:31 AM [facility] TRIGLYCERIDES 155(H) <150 MG/DL 12/19/2018 8:31 AM [facility] HDL 44 >40.0 MG/DL 12/19/2018 8:31 AM [facility] LDL (CALCULATED) 98 <100 MG/DL 12/19/2018 8:31 AM [facility] NON HDL CHOLESTEROL 129 <130 MG/DL 12/19/2018 8:31 AM [facility] CHOL/HDL RATIO 3.9 0.0 - 4.5 12/19/2018 8:31 AM [facility] VLDL CALCULATION 31 5 - 55 MG/DL 12/19/2018 8:31 AM [facility] LIPID INTERPRETATION 12/19/2018 8:31 AM [facility] Comment: [facility] CONCENSUS REPORT RECOMMENDATIONS: ADULT CHILD LOW RISK: CHOLESTEROL <200 <170 TRIGLYCERIDE <150 --- HDL >=60 --- LDL <100 <110 BORDERLINE: CHOLESTEROL 200-239 170-199 TRIGLYCERIDE 150-199 --- HDL 40-59 --- LDL 100-159 110-129 HIGH RISK: CHOLESTEROL >=240 >=200 TRIGLYCERIDE >=200 --- HDL <40 --- LDL >=160 >=130 12/19/2018 7:52 AM HIDE GRADER us Asa Mcnamara MD LABORATORY Final Result [facility] [address] [place] [address], from Last 3 Months or Most Recently Relevant to Health Maintenance [facility] Care Teams Line Tender Relationship Specialty Start Date End Date Neva Holden MD . [facility] [address] [place] [address] PCP - General FAMILY PRACTICE 02/14/20 Asa Mcnamara MD [facility] [address] [place] [address] Thornton Glassware Verifier CARDIOVASCULAR DISEASE 05/15/16
--- OUTSIDE RECORDS SUMMARY | 2024-12-24 12:52 | XMS_ITS | Encounter Summary ---
Author Organization [facility] Address [address] [place] [address] Care Team Providers Care Engineering Surveyor Name Role Phone SullivanDane gonzalez DO Primary Care Provider [phone] Asa Mcnamara MD Unavailable [phone] Deisi Andrews MD Primary Care Provider [phone] Heber Adorno MD Primary Care Provider Unavailable Deisi Andrews MD Primary Care Provider [phone] Neva Holden MD Primary Care Provider [phone] Deisi Andrews MD Primary Care Provider [phone] Neva Holden MD Primary Care Provider [phone] Encounter Details Date Type Department Care Team (Late st Contact Info) Description 05/21/2016 Abstract [facility] AT [address] [address] Rafael Thakur MA Social History Tobacco Use Types Packs/Day Years Used Date Smoking Tobacco: Every Day Cigarettes Smokeless Tobacco: Never Alcohol Use Standard Drinks/Week Comments No 0 (1 standard drink = 0.6 oz pur e alcohol) Comments Unknown Sex and Gender Information Value Date Recorded Sex Assigned at Female 12/06/2019 3:36 PM 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 Legal Sex Female 5:20 PM CDT Gender Identity Female 12/06/2019 3:36 PM 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 Sexual Orientation Straight 12/06/2019 3: 36 PM 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 Occupation Industry Job Start Date [...] on filedocumented in this encounter Care Teams Engineering Surveyor Relationship Specialty Start Date End Date Dane Sullivan DO PCP - General FAMILY PRACTICE 05/15/16 02/11/17 Deisi Andrews MD [address] [place] [address] PCP - General FAMILY PRACTICE 02/13/17 03/10/17 Heber Adorno MD PCP - General 03/11/17 06/14/17 Deisi Andrews MD [address] [place] [address] PCP - General FAMILY PRACTICE 06/15/17 10/14/19 Neva Holden MD [facility] [address] [address] PCP - General FAMILY PRACTICE 10/15/19 12/05/19 Deisi Andrews MD [address] [place] [address] PCP - General FAMILY PRACTICE 12/06/19 02/13/20 Neva Holden MD [facility] [address] [place] [address] PCP - General FAMILY PRACTICE 02/14/20 Asa Mcnamara MD [facility] [address] [place] [address] Stephen Chimney Sweeper CARDIOVASCULAR DISEASE 05/15/16 documented as of this encounter
--- OUTSIDE RECORDS SUMMARY | 2024-12-24 12:53 | XMS_ITS | Encounter Summary ---
Author Organization [facility] Address [address] [place] [address] Care Team Providers Care Job Coach Name Role Phone Asa Mcnamara MD Unavailable [phone] Heber Adorno MD Primary Care Provider Unavailable Deisi Andrews MD Primary Care Provider [phone] Neva Holden MD Primary Care Provider [phone] Deisi Andrews MD Primary Care Provider [phone] Neva Holden MD Primary Care Provider [phone] Encounter Details Date Type Department Care Team (Late st Contact Info) Description 04/30/2017 Abstract [facility] AT [address] [id number] Rafael Thakur MA Social History Tobacco Use Types Packs/Day Years Used Date Smoking Tobacco: Every Day Cigarettes Smokeless Tobacco: Never Alcohol Use Standard Drinks/Week Comments No 0 (1 standard drink = 0.6 oz pur e alcohol) Comments Unknown Sex and Gender Information Value Date Recorded Sex Assigned at Female 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 [facility] [address] [place] [address] PCP - [facility] FAMILY PRACTICE 10/15/19 12/05/19 Deisi Andrews MD [address] [place] [address] PCP - General FAMILY PRACTICE 12/06/19 02/13/20 Neva Holden MD [facility] [address] [place] [address] PCP - [facility] FAMILY PRACTICE 02/14/20 Asa Mcnamara MD [facility]. 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
--- OUTSIDE RECORDS SUMMARY | 2024-12-24 12:53 | XMS_ITS | Patient Health Summary ---
Author Organization [facility] Address [address] [place] [address] Care Team Providers Care Trust Mail Clerk Name Role Phone Matti Balderas MD Primary Care Provider [phone] Note from [facility],non-owned Affiliates and Associated Physician Practices is amultiple site organization consisting of ambulatory clinics and hospital sitesin [place] and [place]. This disclosure is being madepursuant to the Care Everywhere program and may not contain all information available regarding this patient. Last updated 18.[facility] Allergies * Bee Venom(Swelling) -Medium Criticality * [...] evening meal * vitamin D, ergocalciferol, (DRISDOL) 79111 UNITS capsule(Started 01/29/2019) Take 1 (one) capsule [...] (one) tablet by mouth once daily * FLUoxetine (PROzac) 20 MG capsule(Started 12/19/2024) Take 1 (one) capsule by mouth once daily 3 refills by 12/19/2025 * clonazePAM (KlonoPIN) 0.5 MG tablet(Started 12/19/2024) Take 0.5 (one-half) tablet by mouth 3 times daily as needed for Anxiety 2 refills by 06/17/2025 Ended Medications* LORazepam (Ativan) 0.5 MG tablet(Started 09/19/2024) (Discontinued) Take 1 (one) tablet by mouth 3 times daily as needed for Anxiety 2 refills by 03/18/2025 * FLUoxetine (PROzac) 40 MG capsule(Started 09/19/2024)(Discontinued) Take 1 (one) capsule by mouth once daily 2 refills by 09/19/2025 Active Problems Problem Noted Date Diagnosed Date CAD in [place] artery 10/24/2020 MDD (recurrent major depressive disorder) [...] FLUZONE TRIVALENT; 6MO+) (IIV3)(Given 12/16/2015) * Covid Pfizer primary monovalent 12+ yr 0.3mL Purple cap(Given 03/13/2021, 02/17/2021) * FLU VACCINE QUAD IIV4 SPLIT 0.25 ML IM(Given 08/28/2020) * INFLUENZA VACCINE(Given 08/28/2020) * INFLUENZA VACCINE, QUADR. (FLUZONE; FLULAVAL; [...] Answer Date Recorded Patient Health Questionnaire-2 Score 1 12/19/2024 Sex and Gender Information Value Date Recorded Sex Assigned at Not on file Gender Identity Not on file Sexual Orientation Not on file Last Filed Vital Signs Vital Sign Reading Time Taken Comments Blood Pressure 142/84 12/19/2024 9:31 AM WAREHOUSE CLERK Pulse 88 12/19/2024 9:31 AM WAREHOUSE CLERK Temperature 36.5 C (97.7 F) 12/19/2024 9:31 AM WAREHOUSE CLERK Respiratory Rate 18 10/27/2024 2:11 PM WAREHOUSE CLERK Oxygen Saturation 96% 12/19/2024 9:31 AM WAREHOUSE CLERK Inhaled Oxygen Concentration 21% 06/21/2024 8 :20 AM CDT Weight 77.6 kg (171 lb) 12/19/2024 9:31 AM WAREHOUSE CLERK Height 160 cm (5' 3 ) 10/27/2024 2:11 PM WAREHOUSE CLERK Body Mass Index 30.29 10/27/2024 2:11 PM WAREHOUSE CLERK Medical Devices Implanted Type Area Towboat Pilot Device Identifier Shelf Expiration Date Model / Serial / Lot Stent Trchbr 10mm 7fr 38mm 80cm Cvr Cath Implanted:Qty: 1 on 09/04/2020 by Kendrick Tao MD at [facility] N/A: Abdomen [employer] 04/05/2023 [id number] / / [id number] Stent Trchbr 8mm 7fr 38mm 80cm Cvr Cath Implanted:Qty: 1 on 09/04/2020 by Kendrick Tao MD at [facility] N/A: Abdomen [employer] 05/22/2023 [id number] / / [id number] Procedures * URINALYSIS AUTO - POINT OF [...] of urinary bladder, unspecified site (HCC) * AR URETERAL REFLUX STUDY(Performed 06/21/2024) Performed for Malignant neoplasm of urinary bladder, unspecified site (HCC) * AR CYSTO/URETERO/PYELOSCOPY W/BX(Performed 06/21/2024) Performed for Malignant neoplasm [...] TISSUE(Performed 01/17/2024) Performed for Other hydronephrosis * AR CYSTOURETHROSCOPY,URETER CATHETER(Performed 01/17/2024) Performed for Other hydronephrosis * GLUCOSE - POINT OF CARE(Performed 01/17/2024) * LAB RESULTS ORDER(Performed 01/12/2024) * FL CYSTO SURGERY(Performed 12/07/2023) Performed for Malignant neoplasm of urinary bladder, unspecified site (HCC) * GLUCOSE - POINT OF CARE(Performed 12/07/2023) * CYTOLOGY NON-TEENAGE PROGRAM DIRECTOR PANEL (STL)(Performed 12/07/2023) Performed for Malignant neoplasm of urinary bladder, unspecified site (HCC) * PATHOLOGY TISSUE(Performed 12/07/2023) Performed for Malignant neoplasm of urinary bladder, unspecified site (HCC) * LARYNGEAL MASK AIRWAY(Performed 12/07/2023) * AR CYSTO/URETERO/PYELOSCOPY, DX(Performed 12/07/2023) Performed for Malignant neoplasm of urinary bladder, unspecified site (HCC) * AR CYSTOURETHROSCOPY,URETER CATHETER(Performed 12/07/2023) Performed for Malignant neoplasm of urinary bladder, unspecified site (HCC) * AR CYSTOURETHROSCOPY,FULGUR 2-5CM LESN(Performed 12/07/2023) Performed for Malignant [...] CREATININE - POCT INTERFACED(Performed 10/22/2023) * CYTOLOGY NON-TEENAGE PROGRAM DIRECTOR(Performed 06/02/2023) * CYTOLOGY NON-TEENAGE PROGRAM DIRECTOR PANEL(Performed 06/02/2023) Performed for Malignant neoplasm of [...] urinary bladder, unspecified site (HCC) * CYTOLOGY NON-TEENAGE PROGRAM DIRECTOR(Performed 08/14/2022) * CYTOLOGY NON-TEENAGE PROGRAM DIRECTOR PANEL(Performed 08/14/2022) Performed for Malignant neoplasm of urinary bladder, unspecified site (HCC) * URINALYSIS AUTO - POINT OF CARE (AMB) [facility](Performed 08/14/2022) Performed for Malignant neoplasm of urinary bladder, unspecified site (HCC) * CARDIAC RHYTHM STRIP ORDER(Performed 03/26/2022) * GLUCOSE - POINT OF CARE(Performed 03/23/2022) * PATHOLOGY TISSUE EXAM (STL)(Performed 03/23/2022) Performed for Diagnosis unknown * ENDOTRACHEAL TUBE NOTE(Performed 03/23/2022) * AR CYSTO/URETERO/PYELOSCOPY, DX(Performed 03/23/2022) Performed for Diagnosis unknown [...] 12/02/2021) Performed for Coronary artery disease of [place] artery of [place] heart with stable angina pectoris (HCC) * MUJUU-1-GUTHAMXSSMS BLOOD(Performed 12/02/2021) Performed for Pulmonary emphysema, unspecified emphysema type (HCC) * VSUGW-8-DYZQORWZMUI BLOOD PHENOTYPING PANEL(Performed 12/02/2021) Performed for Pulmonary emphysema, unspecified emphysema type ([facility]) * LIPID PROFILE(Performed 12/02/2021) Performed for Coronary artery disease of [place] artery of [place] heart with stable angina pectoris ([facility]) * OPH OCT TEST [facility](Performed 12/02/2021) Performed for Blurred vision, bilateral * URINE DRUG SCREEN IMMUNOASSAY(Performed 10/06/2021) Performed for MDD (recurrent major depressive disorder) in remission ([facility]) * HEMOGLOBIN A1C(Performed 10/06/2021) Performed for MDD (recurrent major depressive disorder) in remission ([facility]) * VITAMIN D 25-HYDROXY(Performed 10/06/2021) Performed for MDD (recurrent major depressive disorder) in remission ([facility]) * COMPREHENSIVE METABOLIC PANEL(Performed 10/06/2021) Performed for MDD (recurrent major depressive disorder) in remission ([facility]) * CBC W AUTO DIFFERENTIAL(Performed 10/06/2021) Performed for MDD (recurrent major depressive disorder) in remission ([facility]) * TSH REFLEX FREE T4(Performed 10/06/2021) Performed for MDD (recurrent major depressive disorder) in remission ([facility]) * BLOOD GASES ART+COOX POCT(Performed 10/06/2021) * PFT OXYGEN DESATURATION STUDY(Performed 10/06/2021) Performed for Acute exacerbation of chronic obstructive pulmonary disease (COPD) ([facility]), Tobacco dependence, CATHERINE (obstructive sleep apnea) * SIX MINUTE WALK(Performed 10/06/2021) Performed for Acute exacerbation of chronic obstructive pulmonary disease (COPD) ([facility]), Tobacco dependence, CATHERINE (obstructive sleep apnea) * COMPLETE PFT W/WO BRONCHODILATOR(Performed 10/06/2021) Performed for Acute exacerbation of chronic obstructive pulmonary disease (COPD) ([facility]), Tobacco dependence, CATHERINE (obstructive sleep apnea) * LIPID PROFILE(Performed 09/30/2021) Performed for Hyperlipidemia, unspecified hyperlipidemia type * LDL CHOLESTEROL DIRECT(Performed 03/20/2021) Performed for PVD (peripheral vascular disease) ([facility]), Coronary artery disease involving [place] heart without angina pectoris, unspecified vessel or lesion type, Hyperlipidemia, unspecified hyperlipidemia type * LIPID PROFILE(Performed 02/20/2021) Performed for Coronary artery disease of [place] artery of [place] heart with stable angina pectoris ([facility]) * LAB RESULTS ORDER(Performed 11/02/2020) * CARDIAC PROCEDURE ORDER(Performed 11/02/2020) * CCL CARDIAC CATH LEFT(Performed 10/24/2020) Performed for Stable angina pectoris * GLUCOSE - POINT OF CARE(Performed 10/24/2020) * VAS CAROTID DUPLEX BILATERAL(Performed 10/22/2020) Performed for Bilateral carotid artery stenosis * VAS ARTERIAL ANKLE ARM INDEX(Performed 10/22/2020) Performed for PAD (peripheral artery disease) ([facility]) * VAS DILEEP ABD DOPPLER AO IVC ILIAC(Performed 10/22/2020) Performed for PAD (peripheral artery disease) ([facility]) * PT-INR(Performed 10/21/2020) Performed for Essential (primary) [...] 09/04/2020) Performed for PAD (peripheral artery disease) ([facility]) * GLUCOSE - POINT OF CARE(Performed 09/04/2020) * BASIC METABOLIC PANEL (CALCIUM TOTAL)(Performed 09/04/2020) Performed for PAD (peripheral artery disease) ([facility]) * CBC W/O DIFFERENTIAL(Performed 09/04/2020) Performed for PAD (peripheral artery disease) ([facility]) * VAS ARTERIAL ANKLE ARM INDEX(Performed 07/10/2020) Performed for Peripheral vascular disease with claudication ([facility]) * VAS DILEEP ABD DOPPLER AO IVC ILIAC(Performed 07/10/2020) Performed for Peripheral vascular disease with claudication ([facility]) * OPH OCT TEST [facility](Performed 06/12/2020) Performed [...] OF CARE (AMB) [facility] (10/27/2024 2:13 PM WAREHOUSE CLERK) Only the most recent of13 resultswithin the time period is included. Glucose UA neg [facility] [address] Bilirubin UA POCT neg [facility] [address] Ketones UA POCT neg [facility] [address] Specific [place] UA 1.[address] [facility] [address] Blood Urine POCT neg [facility] [address] pH UA 5.5 [facility] [address] Protein UA neg [facility] [address] Urobilinogen UA 0.2 [facility] [address] Nitrite UA neg [facility] [address] WBC UA neg [facility] [address] Urine URINE / Unknown 10/27/2024 2 :13 PM WAREHOUSE CLERK Jose Oliver MD LAB - POINT OF CAR E ORDERABLES [facility] [address] [place] [address], [facility] [phone] * CULTURE URINE (09/08/2024) Only the most recent of4 resultswithin the time period is included. Culture [facility] Comment: CULTURE, URINE, ROUTINE Micro Number: [id number] Test Status: Final Specimen Source: Urine Specimen Quality: Adequate Result: Mixed genital unruly isolated. These superficial bacteria are not indicative of a urinary tract infection. No further organism identification is warranted on this specimen. If clinically indicated, recollect clean-catch, mid-stream urine and transfer immediately to Urine Culture Transport Tube. Test Performed at: [id number] [address] GISELE JUSTICE MD 09/08/2024 09/09/2024 1:3 2 AM CDT Melissa Rolon CUSTOMER MANAGEMENT SPECIALIST-EPIC SPECIALIST LAB - MICROBIOL OGY ORDERABLES [facility] [address] [place] [address] * (ABNORMAL) URINALYSIS REFLEX TO MICROSCOPIC NO CULTURE (06/28/2024 3:18 PM CDT) Color UA Red(A) Straw, Yellow 06/28/2024 3:51 PM [facility] Clarity UA Slt Cloudy(A) Clear 06/28/2024 3:51 PM [facility] Specific [place] UA 1.028 1.005 - 1.030 06/28/2024 3:51 PM [facility] pH UA 6.0 5.0 - 8.0 pH 06/28/2024 3:51 PM [facility] Protein UA 1+(A) Negative 06/28/2024 3:51 PM [facility] Glucose UA Negative Negative 06/28/2024 3:51 PM [facility] Ketone UA Negative Negative 06/28/2024 3:51 PM [facility] Bilirubin UA Negative Negative 06/28/2024 3:51 PM [facility] Blood UA 3+(A) Negative 06/28/2024 3:51 PM [facility] Nitrite UA Negative Negative 06/28/2024 3:51 PM [facility] Leukocyte Esterase Trace(A) Negative 06/28/2024 3:51 PM [facility] Urobilinogen UA Negative Negative mg/dL 06/28/2024 3:51 PM [facility] RBC UA >100(A) None Seen, 0-2, 3-5 /HPF 06/28/2024 3:51 PM [facility] WBC UA 0-5 None Seen, 0-5 /HPF 06/28/2024 3:51 PM [facility] Squamous Epithelial Cells UA 0-2 None Seen, 0-2, 3-5 /HPF 06/28/2024 3:51 PM [facility] Urine URINE SPECIMEN OBTAINED BY CLEAN CATCH PROCEDURE / Unknown Collection / Unknown 06/28/2024 3:18 PM CDT 06/28/2024 3:22 PM CDT Narrative [facility] - 06/28/2024 3:51 PM CDT Martir Choi MD LAB - URINALYSIS ORD ERABLES Performing Organization Address [facility] Co de Phone Number [address] [address], [facility] [phone] * PT-INR [facility] (06/28/2024 3:17 PM CDT) Only the most [...] - COAGULATION OR DERABLES Performing Organization Address [facility] Co de Phone Number [address] [address], [facility] [phone] * (ABNORMAL) CBC W AUTO DIFFERENTIAL (06/28/2024 3:17 PM CDT) Only the most recent of4 resultswithin the time period is included. WBC 12.1(H) 4.0 - 10.7 x10E9/L 06/28/2024 3:33 PM CDT [facility] RBC Count 5.43(H) 3.90 - 5.20 x10E12/L 06/28/2024 3:33 PM CDT [facility] Hemoglobin 15.3 11.9 - 15.8 g/dL 06/28/2024 3:33 PM [facility] Hematocrit 46.0 34.8 - 46.1 % 06/28/2024 3:33 PM [facility] MCV 84.7 80.0 - 98.0 fL 06/28/2024 3:33 PM [facility] MCH 28.2 26.7 - 33.6 pg 06/28/2024 3:33 PM [facility] MCHC 33.3 31.7 - 36.3 g/dL 06/28/2024 3:33 PM [facility] RDW-CV 13.0 11.3 - 14.8 % 06/28/2024 3:33 PM [facility] Platelet Count 218 150 - 420 x10E9/L 06/28/2024 3:33 PM [facility] MPV 9.9 7.8 - 11.4 fL 06/28/2024 3:33 PM [facility] Neutrophil % 65.5 41.0 - 74.0 % 06/28/2024 3:33 PM [facility] Lymphocyte % 24.0 17.0 - 47.0 % 06/28/2024 3:33 PM [facility] Monocyte % 6.7 3.0 - 11.0 % 06/28/2024 3:33 PM [facility] Eosinophil % 3.1 0.0 - 7.0 % 06/28/2024 3:33 PM [facility] Basophil % 0.4 0.0 - 1.6 % 06/28/2024 3:33 PM [facility] Immature Granulocytes % 0.3 0.0 - 1.0 % 06/28/2024 3:33 PM [facility] Neutrophil Absolute 7.90(H) 1.60 - 7.50 x10E9/L 06/28/2024 3:33 PM [facility] Lymphocyte Absolute 2.90 1.00 - 4.40 x10E9/L 06/28/2024 3:33 PM [facility] Monocyte Absolute 0.81 0.15 - 1.00 x10E9/L 06/28/2024 3:33 PM [facility] Eosinophil Absolute 0.38 0.00 - 0.60 x10E9/L 06/28/2024 3:33 PM [facility] Basophil Absolute 0.05 0.00 - 0.13 x10E9/L 06/28/2024 3:33 PM [facility] Blood BLOOD SPECIMEN / Unknown Venipuncture / Unknown 06/28/2024 3:17 PM CDT 06/28/2024 3:26 PM CDT Martir Choi MD LAB - HEMATOLOGY ORD ERABLES [facility] [address] [place] [address], [facility] [phone] * BASIC METABOLIC PANEL (CALCIUM TOTAL) (06/28/2024 3:17 PM CDT) Only the most recent of5 resultswithin the time period is included. BUN 15 7 - 26 mg/dL 06/28/2024 3:51 PM [facility] Creatinine 0.69 0.56 - 0.96 mg/dL 06/28/2024 3:51 PM [facility] Sodium 138 136 - 145 mmol/L 06/28/2024 3:51 PM [facility] Potassium 4.0 3.5 - 4.5 mmol/L 06/28/2024 3:51 PM [facility] Chloride 103 98 - 107 mmol/L 06/28/2024 3:51 PM [facility] CO2 26 22 - 29 mmol/L 06/28/2024 3:51 PM [facility] Glucose 102 70 - 115 mg/dL 06/28/2024 3:51 PM [facility] Calcium 9.4 8.4 - 10.2 mg/dL 06/28/2024 3:51 PM [facility] Anion Gap 9 6 - 16 06/28/2024 3:51 PM [facility] BUN/Creatinine Ratio 22 7 - 23 06/28/2024 3:51 PM [facility] Osmolality Calculated 287 275 - 295 mOsm/kg 06/28/2024 3:51 PM CDT [facility] eGFR by CKD-EPI >90 >=90 mL/min/1.7 3 m2 06/28/2024 3:51 PM CDT [facility] Blood BLOOD SPECIMEN / Unknown Venipuncture / Unknown 06/28/2024 3:17 PM CDT 06/28/2024 3:26 PM CDT Matrir Choi MD LAB - CHEMISTRY BASSAM CONTRERAS Performing Organization Address City/[facility]/ZIP Co de Phone Number [facility] [address] [place] [address], [facility] [phone] * [place] Cysto Surgery (06/21/2024 9:46 PM CDT) Only the most recent of3 resultswithin the time period is included. Narrative [facility] - 06/21/2024 9:46 PM CDT Fluoroscopy was used for this exam in the OR. Please see the Operative report. Jose Oliver MD FLUOROSCOPY ORDERA SUNIL Performing Organization Address [facility] Co de Phone Number [facility] * PATHOLOGY TISSUE (06/21/2024 10:01 AM CDT) Only the most recent of4 resultswithin the time period is included. Case Report Surgical Pathology Report Case: [id number] Authorizing Provider: Jose Oliver MD Collected: 06/21/2024 10:01 AM Ordering Location: [facility] Received: 06/21/2024 01:25 PM Pathologist: Nicole Glaser MD Specimens: A) - Bladder Biopsy, 1. right floor bladder B) - Bladder Biopsy, 2. 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 Ki-67 stains the majority of urothelial cells, including cells at the surface, supporting a diagnosis of carcinoma in situ 06/23/2024 8:22 AM [facility] Clinical History The patient is a 63 year old woman with history of bladder cancer, now with 2 areas of mild bleeding and mild inflammation noted that were biopsied along the right bladder floor and posterior lateral wall. 06/23/2024 8:22 AM [facility] Gross Description The [...] in cassette B1. DF 06/23/2024 8:22 AM [facility] Pathologist Location at [facility] 06/23/2024 8:22 AM [facility] Disclaimer The performance characteristics of all immunohistochemical and indirect immunofluorescence stains (if any) cited in this report were determined by the Histopathology Laboratory of [facility]. Some of these tests were developed [...] the attending (teaching) pathologist. 06/23/2024 8:22 AM [facility] Embedded Images 06/23/2024 8:22 AM [facility] Biopsy, Excision [...] - PATHOLOGY/CY TOLOGY ORDERABLES Performing Organization Address City/[facility] Co de Phone Number [facility] LAB [address] [place] [address], [facility] [phone] * (ABNORMAL) GLUCOSE - POINT OF CARE (06/21/2024 8:10 AM CDT) Only the most recent of12 resultswithin the time period is included. Glucose WB/POC 149(H) 70 - 115 mg/dL 06/21/2024 8:47 AM CDT [facility] Specimen Type Venous 06/21/2024 8:47 AM CDT [facility] Blood BLOOD SPECIMEN / Unknown 06/21/2024 8:10 AM CDT 06/21/2024 8:47 AM CDT Jose Oliver MD LAB - POINT OF CAR E ORDERABLES Performing Organization Address [facility] Co de Phone Number [facility] [address] [id number], [facility] [phone] * PTT [facility] (06/21/2024 8:07 AM CDT) APTT 26.7 23.0 - 38.4 Seconds 06/21/2024 8:35 AM CDT [facility] Comment:Suggested therapeuti c range for full dose I.V. unfractionated heparin therapy for venous thromboembolism is 71 to 109 seconds. Blood BLOOD SPECIMEN / Unknown Venipuncture / Unknown 06/21/2024 8:07 AM CDT 06/21/2024 8:09 AM CDT Jose Oliver MD LAB - COAGULATION ORDERABLES [facility] [address] [place] [address], [facility] [phone] * LAB RESULTS ORDER (06/07/2024) Only the [...] kidney. > Dictated by Margi Brooke MD (Graduate Intern) 04/20/2024 9:43 AM ISamira DO have personally reviewed and interpreted this examination/study. > Interpreting Provider: Samira Tariq DO on 04/20/2024 3:39 PM Narrative 04/20/2024 3:39 PM CDT PROCEDURE: NM RENAL SCAN W DRUG, DATE/TIME OF EXAM: 04/20/2024 9:58 AM, LOCATION [facility] INDICATION: N13.39: Other hydronephrosis ADDITIONAL CLINICAL INFORMATION: Ordering Provider Reason For Exam: hx of left flank pain, assess for obstruction PROCEDURE: Renal blood flow and function with Lasix diuresis HISTORY: 63-year-old female patient with history of infiltrative bladder mass, resulting in left hydronephrosis and hydroureter. Patient's BMI is 31.9 kg/m . TECHNIQUE: 11 mCi of Tc-99m MAG3 was [...] Left Right -- 15 Half-peak time (min) Procedure Note Samira Tariq, DO - 04/20/2024 PROCEDURE: NM RENAL SCAN W DRUG, DATE/TIME OF EXAM: 04/20/2024 9:58 AM, LOCATION [facility] INDICATION: N13.39: Other hydronephrosis ADDITIONAL CLINICAL INFORMATION: Ordering Provider Reason For Exam: hx of left flank pain, assess for obstruction PROCEDURE: Renal blood flow and function with Lasix diuresis HISTORY: 63-year-old female patient with history of infiltrative bladder mass, resulting in left hydronephrosis and hydroureter. Patient's BMI is 31.9 kg/m . TECHNIQUE: 11 mCi of Tc-99m MAG3 was [...] kidney. > Dictated by Margi Brooke MD (Graduate Intern) 04/20/2024 9:43 AM ISamira DO have personally reviewed and interpreted this examination/study. > Interpreting Provider: Samira Tariq DO on 04/20/2024 3:39 PM Jose Oliver MD NM ORDERABLES * CYTOLOGY NON-TEENAGE PROGRAM DIRECTOR PANEL ([facility]) (12/07/2023 8:21 AM WAREHOUSE CLERK) Case Report Medical Cytology Report Case: [id number] Authorizing Provider: Jose Oliver MD Collected: 12/07/2023 08:21 AM Ordering Location: [facility] Received: 12/07/2023 02:59 PM Pathologist: Jose Rico MD Specimen: Body Fluid , left ureteral 12/09/2023 12:32 PM [facility] Specimen Adequacy Adequate cellularity for evaluation. 12/09/2023 12:32 PM [facility] Final Diagnosis Left ureter, cytology from cystoscopy: - Atypical urothelial cells 12/09/2023 12:32 PM [facility] Clinical History The [...] no obvious papillary mass. 12/09/2023 12:32 PM [facility] Gross Description 1 pap stained cytospin slide from 10cc pink fluid 12/09/2023 12:32 PM [facility] Microscopic Description Microscopic examination substantiates the final diagnosis. 12/09/2023 12:32 PM [facility] Pathologist Location at [facility] 12/09/2023 12:32 PM [facility] Disclaimer The performance characteristics of all immunohistochemical and indirect immunofluorescence stains (if any) cited in this report were determined by the Histopathology Laboratory of [facility]. Some of these tests rely on the use of analyte-specific reagents and are subject to specific labeling requirements by the US Food and Drug Administration. Such tests were developed by the [facility] of [facility] and have not been cleared or approved [...] the attending (teaching) pathologist. 12/09/2023 12:32 PM WAREHOUSE CLERK [facility] Embedded Images 12/09/2023 12:32 PM WAREHOUSE CLERK [facility] Pathology/Cytolo gy BODY FLUID SPECIMEN / Unknown Collection / Unknown 12/07/2023 8:21 AM WAREHOUSE CLERK 12/07/2023 2:59 PM WAREHOUSE CLERK Jose Oliver MD LAB - PATHOLOGY/CY TOLOGY ORDERABLES Performing Organization Address City/[facility]/[place] Co de Phone Number [facility] [address] [phone] * LARYNGEAL MASK AIRWAY (12/07/2023 7:47 AM WAREHOUSE CLERK) Narrative Jr. Jamey Rodriguez Anes Asst - 12/07/2023 7:47 AM WAREHOUSE CLERK Jr. Jamey Rodriguez Anes Asst 12/07/2023 7:47 AM LMA Placement Procedure/LDA Note: Patient Location: [...] HEMOGLOBIN A1C [IN-HOUSE TEST] (11/22/2023 10:36 AM WAREHOUSE CLERK) Only the most recent of2 resultswithin the time period is included. Hemoglobin A1c 6.4(H) <=5.6 % 11/22/2023 12:05 PM [facility] Estimated Average Glucose 137 mg/dL 11/22/2023 12:05 PM [facility] Comment: HbA1c Interpretation: Normal : < 5.7% Pre-diabetes: 5.7-6.4% Diabetes: Equal to or greater than 6.5% Test results diagnostic of diabetes should be repeated for confirmation. Treatment target values recommended by ADA and other clinical organizations should be used to evaluate metabolic control in patients. Reference: [place] [employer], Standards of Care in Diabetes -2020 In patients 70 years and older consider HbA1c target range of 7.0-7.5% (Reference: Montez Rosas et al. JAMDA. 2012) The Sebia assay for the measurement of HbA1c is a National Glycohemoglobin Standardization Program (NGSP) certified method. Blood BLOOD SPECIMEN WITH EDTA / Unknown Lab Venipuncture / Unknown 11/22/2023 10:36 AM WAREHOUSE CLERK 11/22/2023 10:42 AM WAREHOUSE CLERK Jasmin Moore CUSTOMER MANAGEMENT SPECIALIST-EPIC SPECIALIST LAB - CHEMISTRY ORDERABLES [facility] [address] [place] [address], [facility] [phone] * CBC W/O DIFFERENTIAL (11/22/2023 10:36 AM [facility]) Only the most recent of2 resultswithin the time period is included. Pathologist [facility] WBC 9.9 4.0 - 10.7 x10E9/L 11/22/2023 10:54 AM [facility] RBC Count 4.94 3.90 - 5.20 x10E12/L 11/22/2023 10:54 AM [facility] Hemoglobin 13.6 11.9 - 15.8 g/dL 11/22/2023 10:54 AM [facility] Hematocrit 40.8 34.8 - 46.1 % 11/22/2023 10:54 AM [facility] MCV 82.6 80.0 - 98.0 fL 11/22/2023 10:54 AM [facility] MCH 27.5 26.7 - 33.6 pg 11/22/2023 10:54 AM [facility] MCHC 33.3 31.7 - 36.3 g/dL 11/22/2023 10:54 AM [facility] RDW-CV 14.1 11.3 - 14.8 % 11/22/2023 10:54 AM [facility] Platelet Count 260 150 - 420 x10E9/L 11/22/2023 10:54 AM [facility] MPV 10.1 7.8 - 11.4 fL 11/22/2023 10:54 AM [facility] Blood BLOOD SPECIMEN / Unknown Lab Venipuncture / Unknown 11/22/2023 10:36 AM WAREHOUSE CLERK 11/22/2023 10:42 AM [facility] Jasmin Moore CUSTOMER MANAGEMENT SPECIALIST-EPIC SPECIALIST LAB - HEMATOLOGY ORDERABLES Performing Organization Address City/State/[place] Co de Phone Number [facility] [address] [place] [phone], [facility] [phone] * CT UROGRAM (10/22/2023 10:10 AM WAREHOUSE CLERK) Anatomical Region Laterality Modality Abdomen, Pelvis Computed Tomogra phy 10/22/2023 10:3 5 AM WAREHOUSE CLERK Impressions 10/22/2023 10:45 AM WAREHOUSE CLERK IMPRESSION: 1. An infiltrative bladder mass on [...] 10/22/2023 10:45 AM Narrative 10/22/2023 10:45 AM WAREHOUSE CLERK PROCEDURE: CT UROGRAM DATE/TIME OF EXAM: 10/22/2023 [...] upper quadrant and adjacent to the spleen [id number] mm in maximum dimension. The adrenal glands, [...] CREATININE - POCT INTERFACED (10/22/2023 9:03 AM WAREHOUSE CLERK) Creatinine POCT 0.88 0.70 - 1.20 mg/dL 10/22/2023 9:14 AM WAREHOUSE CLERK [facility] eGFR 75(L) >=90 mL/min/1.7 3 m2 10/22/2023 9:14 AM WAREHOUSE CLERK [facility] Blood BLOOD SPECIMEN / Unknown 10/22/2023 9:03 AM WAREHOUSE CLERK 10/22/2023 9:14 AM WAREHOUSE CLERK Jose Oliver MD LAB - POINT OF CAR E ORDERABLES [facility] [address] [place] [address] * CYTOLOGY NON-TEENAGE PROGRAM DIRECTOR (06/02/2023 12:00 PM CDT) Only the most recent of2 resultswithin the time period is included. A Source Bladder wash [facility] A Gross Description [facility] Comment: The specimen is received with multiple patient identifier(s), labeled bladder wash and consists of 20 cc(s) of yellow fluid. One ThinPrep slide prepared and stained with Papanicolaou stain. Gross exam(s) performed at: [facility] [address] [address] Healthcare Technician: MD Ralph PADRON Diagnosis [facility] Comment: Atypical cells present of undetermined significance. Red blood cells present. Atypical urothelial cells present. Suggest clinically appropriate follow up. NO COLLECTION DATE RECEIVED. WE HAVE USED THE DATE THE SPECIMEN WAS RECEIVED BY THIS LABORATORY THE COLLECTION DATE. IF THIS IS INCORRECT, PLEASE CONTACT CLIENT SERVICES. PHONE NUMBER: [phone] Test Performed at: [facility] [address] [address] TERE KO MD 05/29/2023 1:4 4 AM CDT Jose Oliver MD LAB - PATHOLOGY/AIDAN EMERSONOGY ORDERABLES Performing Organization Address [facility] [place] [address] * CYTOLOGY NON-TEENAGE PROGRAM DIRECTOR PANEL (06/02/2023 12:00 PM CDT) Only the most recent of2 resultswithin the time period is included. Clinical Information [facility] Comment: Malignant neoplasm of urinary bladder, unspecified site Pathologist [facility] Comment: Elbert Chawla M.D., Board Certified in Anatomic Pathology and Clinical Pathology [phone] (electronic signature) Report Notes [facility] Comment: Sears portions of this case have been reviewed by one or more pathologists. Test Performed at: [facility] [address] [address] TERE KO MD Pathology/Cytolog y 05/29/2023 1:44 AM CDT Jose Oliver MD LAB - PATHOLOGY/AIDAN EMERSONOGRocky ORDERABLES Performing Organization Address [facility] [place] [address] * ETT LINE PERFORMABLE (01/18/2023 9:30 AM WAREHOUSE CLERK) Narrative Jayy Zheng Anes Asst - 01/18/2023 9:30 AM WAREHOUSE CLERK Jayy Zheng Anes Asst 01/18/2023 9:31 AM Endotracheal Tube Placement: Patient Location: OR. Intubation Event Date/Time: 01/18/2023 9:09 AM Procedure: intubation ([id number]). Procedure Section: Sedation: under general anesthesia. Indications [...] Blood noted in oropharynx but not peritracheal.. Alicja Weaver MD GENERAL ANESTHESIA ORDERABLES * LARYNGEAL MASK AIRWAY (01/18/2023 9:28 AM WAREHOUSE CLERK) Narrative Jayy Zheng Anes Asst - 01/18/2023 9:28 AM WAREHOUSE CLERK Jayy Zheng Anes Asst 01/18/2023 9:39 AM LMA Placement Procedure/LDA Note: Patient Location: [...] tissue after placement. Min cuff to seal.. Alicja Weaver MD GENERAL ANESTHESIA ORDERABLES * CARDIAC RHYTHM STRIP ORDER (03/26/2022 11:43 PM CDT) Narrative 03/26/2022 11:43 PM CDT Ordered by an unspecified provider. Scanned Document CARDIAC SERVICES ORD ERABLES * PATHOLOGY TISSUE EXAM (STL) (03/23/2022 8:11 AM CDT) Case Report Surgical Pathology Report Case: [id number] Authorizing Provider: Jose Oliver MD Collected: 03/23/2022 08:11 AM Ordering Location: [facility] Received: 03/23/2022 08:51 AM Pathologist: Kenan Maria MD Specimen: Bladder Mass, BLADDER TUMOR 03/24/2022 4:30 PM [facility] Final Diagnosis Urinary bladder, transurethral resection of bladder tumor: 1. Negative for malignancy 2. Acute and chronic inflammation, fibrosis, and dystrophic calcification consistent with biopsy site changes 3. Detrusor muscle present, negative for tumor invasion 03/24/2022 4:30 PM [facility] Clinical History Bladder mass 03/24/2022 4:30 PM [facility] Gross Description The requisition and specimen are identified with patient's name and date of . Received in formalin, specimen A, bladder tumor aggregate of hawthorne-pink hawthorne soft tissues, 1.5 x 1.5 x 0.3 cm. Entirely submitted in cassette A1. LJ 03/24/2022 4:30 PM [facility] Microscopic Description Immunostain for pancytokeratin (control appropriate) is negative for tumor. Residual surface urothelium has fish house worker maturation. 03/24/2022 4:30 PM [facility] Disclaimer All histochemical and/or immunohistochemical results are interpreted with controls that demonstrate appropriate staining reactions before reporting results. Note on use of immunocytochemistry reagents: This test was developed and its performance characteristic determined by [facility], Department of Laboratory [...] be interpreted with caution. 03/24/2022 4:30 PM [facility] Embedded Images 03/24/2022 4:30 PM [facility] Pathology/Cytolo gy MASS OF URINARY BLADDER / Unknown 03/23/2022 8:11 AM CDT 03/23/2022 8:51 AM CDT Comment:Pre-op diagnosis: Diagnosis unknown [R69] Jose Oliver MD LAB - PATHOLOGY/AIDAN MUNOZ ORDERABLES [facility] [address] [place] [address] * ETT LINE PERFORMABLE (03/23/2022 7:46 AM CDT) Narrative Wilfred Delgado APRN-CRNA - 03/23/2022 7:46 AM CDT Wilfred Delgado APRN-CRNA 03/23/2022 7:46 AM Endotracheal Tube Placement: Patient Location: OR. Intubation Event Date/Time: 03/23/2022 7:40 AM Procedure: intubation ([id number]). Procedure Section: Sedation: under general anesthesia. Indications [...] specific gravity. Appearance TURBID(A) CLEAR [facility] Specific [place] UA 1.027 1.001 - 1.035 [facility] pH UA < OR = 5.0 5.0 - 8.0 [facility] Glucose UA TRACE(A) NEGATIVE [facility] Bilirubin UA NEGATIVE NEGATIVE [facility] Ketone UA NEGATIVE NEGATIVE [facility] Blood UA 3+(A) NEGATIVE [facility] Protein UA 2+(A) NEGATIVE [facility] Nitrite UA NEGATIVE NEGATIVE [facility] Leukocyte UA 2+(A) NEGATIVE [facility] Comment: Test Performed at: [facility] [address] [place] [address] JESSICA MANLEY DO,MPH Urine URINE SPECIMEN OBTAINED BY CLEAN CATCH PROCEDURE / Unknown 03/11/2022 10:45 AM CDT 03/11/2022 10:46 AM CDT Jose Oliver MD LAB - URINALYSIS O RDERABLES [facility] [address] [place] [address] * PATH CONSULT ON REFERRED CASE (02/13/2022 8:57 AM CDT) Final Diagnosis A. Urinary bladder, transurethral resection, (OSC: [id number]; 01/21/2022): - Invasive urothelial cell carcinoma, high-grade - No definitive detrusor muscle seen B. Urinary bladder, left ureteral orifice transurethral resection, (OSC: [id number]; 01/21/2022): - Invasive urothelial cell carcinoma, high-grade - Detrusor muscle present, negative for tumor invasion 02/16/2022 1:52 PM [facility] Microscopic Description and Comment Performed. 02/16/2022 1:52 PM CDT [facility] Clinical History 02/16/2022 1:52 PM CDT [facility] Materials Received Received are 3 slide(s) labeled [id number] along with a copy of the outside pathology report. The materials originate from [facility], Department of Pathology, [address] [place] [address], [facility]. All original materials are returned to the referring institution, along with a copy of our final report. 02/16/2022 1:52 PM CDT [facility] Disclaimer The performance characteristics of all immunohistochemical and indirect immunofluorescence stains (if any) cited in this report were determined by the Histopathology Laboratory of [facility]. Some of these tests were developed [...] attending (teaching) pathologist. 02/16/2022 1:52 PM CDT [facility] Case Report Surgical Pathology Report Case: [id number] Authorizing Provider: Jose Oliver MD Collected: 02/13/2022 08:57 AM Ordering Location: [facility] Lab Received: 02/13/2022 08:57 AM Pathologist: Gian Jay MD Specimen: Slide Consultation 02/16/2022 1:52 PM CDT [facility] Embedded Images 02/16/2022 1:52 PM CDT [facility] Pathology/Cytolo gy SURGICAL PATHOLOGY CONSULTATION AND REPORT ON REFERRED SLIDES PREPARED ELSEWHERE / Unknown 02/13/2022 8:57 AM CDT 02/13/2022 8:57 AM CDT Jose Oliver MD LAB - PATHOLOGY/CY TOLOGY ORDERABLES Performing Organization Address [facility]/State/[place] Co de Phone Number [facility] [address] [phone] * ECHO COMPLETE W BUBBLE STUDY (12/31/2021 9:47 AM WAREHOUSE CLERK) Anatomical Region Laterality Modality Chest Echo 12/31/2021 9:07 AM WAREHOUSE CLERK Narrative Procedure Note Campos Fraga MD - 01/08/2022 Hollis Mccall MD ECHOCARDIOGRAPHY RAD IANT * [id number]-5-OTFASBDTPIQ BLOOD PHENOTYPING PANEL (12/02/2021 10:26 AM WAREHOUSE CLERK) [facility] Tkczy-7-Ufabqnaold n Phenotype M2M2 12/05/2021 5:33 PM WAREHOUSE CLERK [facility] Comment: The patient appears to have a normal phenotype. All M alleles (including subtypes M1, M2, and M3) produce normal serum concentrations of czeci-0-ifiruefj inhibitor and are not associated with clinical disease. Caution in interpretation is advised if the patient has been transfused within the previous 21 days. Performed By: [facility] [address] [place] [address] Healthcare Technician: Starr Boswell MD Innrj-4-Hkuemaxpzn n 151 90 - 200 mg/dL 12/05/2021 5:33 PM WAREHOUSE CLERK [facility] Comment:To convert to umol/L , multiply mg/dL by 0.185 Blood BLOOD SPECIMEN / Unknown Lab Venipuncture / Unknown 12/02/2021 10:26 AM WAREHOUSE CLERK 12/02/2021 11:13 AM WAREHOUSE CLERK Hollis Mccall MD LAB - CHEMISTRY [facility] [address], [place] [address] * HLNKN-1-SFFIXSBIDVO BLOOD (12/02/2021 10:26 AM WAREHOUSE CLERK) [facility] Tsgut-4-Trvpzs ypsin 164 90 - 200 mg/dL 12/02/2021 12:30 PM WAREHOUSE CLERK [facility] Blood BLOOD SPECIMEN / Unknown Lab Venipuncture / Unknown 12/02/2021 10:26 AM WAREHOUSE CLERK 12/02/2021 11:13 AM WAREHOUSE CLERK Hollis Mccall MD LAB - CHEMISTRY [facility]ASS[facility] CONTR[facility] [address] [address], [facility] [phone] * LDL CHOLESTEROL DIRECT (12/02/2021 10:26 AM WAREHOUSE CLERK) Only the most recent of2 resultswithin the time period is included. [facility] LDL Direct 95 <100 mg/dL 12/02/2021 12:15 PM [facility] Comment: ATP III Classification of LDL Cholesterol: <100 mg/dL: Optimal 100 - 129 mg/dL: Near Optimal/Above Optimal 130 - 159 mg/dL: Borderline High 160 - 189 mg/dL: High >190 mg/dL: Very High Blood BLOOD SPECIMEN / Unknown Lab Venipuncture / Unknown 12/02/2021 10:26 AM WAREHOUSE CLERK 12/02/2021 11:31 AM WAREHOUSE CLERK Monica Quijano MD LAB - CHEMISTRY ORD ERABLES [facility] [address] [place] [address], [facility] [phone] * (ABNORMAL) LIPID PROFILE (12/02/2021 10:26 AM [facility]) Only the most recent of3 resultswithin the time period is included. [facility] Cholesterol Total 209(H) <200 mg/dL 12/02/2021 11:59 AM [facility] HDL 38(L) >40 mg/dL 12/02/2021 11:59 AM [facility] Comment: ATP III Classification of HDL Cholesterol: <40 mg/dL: Considered a major risk factor. >60 mg/dL: Considered a negative risk factor. LDL Calculated 12/02/2021 11:59 AM [facility] Comment:Calculation of LDL v alue was not performed because triglyceride concentrations greater than 400 mg/dL render the calculated value invalid. For this reason, the LDL Direct assay for measurement of LDL Cholesterol has been performed (per laboratory protocol). Triglycerides 544(H) <150 mg/dL 12/02/2021 11:59 AM [facility] Comment: ATP III Classification of Triglycerides: <150 mg/dL: Normal 150 - 199 mg/dL: Borderline High 200 - 400 mg/dL: High >500 mg/dL: Very High Blood BLOOD SPECIMEN / Unknown Lab Venipuncture / Unknown 12/02/2021 10:26 AM WAREHOUSE CLERK 12/02/2021 11:31 AM WAREHOUSE CLERK Monica Quijano MD LAB - CHEMISTRY ORD ERABLES [facility] [address] [place] [address], [facility] [phone] * OPH OCT TEST SLU (12/02/2021 9:29 AM WAREHOUSE CLERK) Anatomical Region Laterality Modality Other 12/02/2021 9:29 AM WAREHOUSE CLERK Tyrone Zuniga MD [facility] ORDERABLES * (ABNORMAL) DRUG SCREEN TOX URINE PANEL (IN HOUSE) (10/06/2021 4:17 PM WAREHOUSE CLERK) Amphetamines Screen Urine Negative Negative : < 1000 ng/mL 10/06/2021 5:04 PM [facility] Barbiturates Screen Urine Negative Negative : < 200 ng/mL 10/06/2021 5:04 PM [facility] Benzodiazepine Screen Urine Positive(A) Negative : < 200 ng/mL 10/06/2021 5:04 PM [facility] Comment: Positive urine benzodiazepine screening results should be confirmed by another generally accepted non-immunological method such as gas chromatography or mass spectrometry. Opiates Urine Positive(A) Negative : < 300 ng/mL 10/06/2021 5:04 PM [facility] Comment:Positive urine opiat e screening results should be confirmed by another generally accepted non-immunological method such as gas chromatography or mass spectrometry. Cocaine Metabolites Urine Negative Negative : < 300 ng/mL 10/06/2021 5:04 PM [facility] Phencyclidine Screen Urine Negative Negative : < 25 ng/ml 10/06/2021 5:04 PM [facility] Cannabinoids Screen Urine Positive(A) Negative : <50 ng/mL 10/06/2021 5:04 PM [facility] Comment:Positive urine canna binoids (THC) screening results should be confirmed by another generally accepted non-immunological method such as gas chromatography or mass spectrometry. Methadone Screen Urine Negative Negative : < 300 ng/mL 10/06/2021 5:04 PM [facility] Fentanyl Screen Urine Negative Negative : <1.0 ng/mL 10/06/2021 5:04 PM [facility] Urine URINE / Unknown Collection / Unknown 10/06/2021 4:17 PM WAREHOUSE CLERK 10/06/2021 4:34 PM WAREHOUSE CLERK Narrative [facility] - 10/06/2021 5:04 PM WAREHOUSE CLERK The Urine Toxicology Screening Panel does not screen for Propoxyphene, Meprobamate, Carisoprodol, Trazodone, qsoa-nrx-zlbibhi medications and/or volatiles (Acetone, Isopropanol, Methanol or Ethylene Glycol). Ethanol, Salicylate, Acetaminophen, Tricyclic Antidepressants and several therapeutic drugs may be individually assayed in serum or plasma specimen. Toxicology testing by the [facility] is an aid to medical diagnosis and treatment of patients. No documented chain of custody was maintained. Results are intended to be used for clinical purposes only. Nicole Singletary DO LAB - URINE CHEMISTR Y ORDERABLES Performing Organization Address City/[facility]/ZIP Co de Phone Number [address] [address], [facility] [phone] * TSH REFLEX FREE T4 (10/06/2021 4:00 PM WAREHOUSE CLERK) TSH 2.406 0.350 - 4.940 uIU/mL 10/06/2021 5:17 PM WAREHOUSE CLERK [facility] Blood BLOOD SPECIMEN / Unknown Lab Venipuncture / Unknown 10/06/2021 4:00 PM WAREHOUSE CLERK 10/06/2021 4:34 PM WAREHOUSE CLERK Nicole Singletary DO LAB - CHEMISTRY ORDE RABLES Performing Organization Address City/[facility]/ZIP Co de Phone Number [address] [address], [place] [phone] * VITAMIN D 25-HYDROXY (10/06/2021 4:00 PM WAREHOUSE CLERK) Vitamin D, 25 Hydroxy 30.0 30.0 - 80.0 ng/mL 10/06/2021 5:17 PM WAREHOUSE CLERK [facility] Comment: The recommendations for 25-Hydroxy Vitamin D clinical decision points are as follows: Deficient: <20.0 ng/mL Insufficient: 20.0 - 29.9 ng/mL Sufficient: > or =30.0 ng/mL If the 25-Hydroxy Vitamin D results are inconsitent with clinical evidence, it is recommended that follow-up testing using a method such as LC/MS/MS be performed to confirm the result. Reference: The Endocrine Society Clinical Practice Guidelines. 2011 Blood BLOOD SPECIMEN / Unknown Lab Venipuncture / Unknown 10/06/2021 4:00 PM WAREHOUSE CLERK 10/06/2021 4:34 PM WAREHOUSE CLERK Nicole Singletary DO LAB - CHEMISTRY [facility] [address] [place] [address], [facility] [phone] * (ABNORMAL) COMPREHENSIVE METABOLIC PANEL (10/06/2021 4:00 PM WAREHOUSE CLERK) BUN 18 7 - 26 mg/dL 10/06/2021 4:59 PM [facility] Creatinine 0.97(H) 0.56 - 0.96 mg/dL 10/06/2021 4:59 PM [facility] Sodium 140 136 - 145 mmol/L 10/06/2021 4:59 PM [facility] Potassium 3.5 3.5 - 4.5 mmol/L 10/06/2021 4:59 PM [facility] Chloride 104 98 - 107 mmol/L 10/06/2021 4:59 PM [facility] CO2 27 22 - 29 mmol/L 10/06/2021 4:59 PM [facility] Glucose 124(H) 70 - 115 mg/dL 10/06/2021 4:59 PM [facility] Calcium 9.3 8.4 - 10.2 mg/dL 10/06/2021 4:59 PM [facility] Protein Total 6.7 6.0 - 8.3 g/dL 10/06/2021 4:59 PM [facility] Albumin 3.3(L) 3.4 - 5.0 g/dL 10/06/2021 4:59 PM [facility] Bilirubin Total 0.2 0.2 - 1.2 mg/dL 10/06/2021 4:59 PM [facility] Alkaline Phosphatase 78 40 - 150 U/L 10/06/2021 4:59 PM [facility] ALT 16 5 - 55 U/L 10/06/2021 4:59 PM [facility] AST 11 5 - 34 U/L 10/06/2021 4:59 PM [facility] Anion Gap 13 8 - 18 10/06/2021 4:59 PM [facility] BUN/Creatinine Ratio 19 7 - 23 10/06/2021 4:59 PM [facility] Osmolality Calculated 293 270 - 300 mOsm/kg 10/06/2021 4:59 PM [facility] Albumin/Globulin Ratio 1.0(L) 1.1 - 2.3 10/06/2021 4:59 PM [facility] eGFR by CKD-EPI 64(L) >=90 mL/min/1.7 3 m2 10/06/2021 4:59 PM [facility] Blood BLOOD SPECIMEN / Unknown Lab Venipuncture / Unknown 10/06/2021 4:00 PM WAREHOUSE CLERK 10/06/2021 4:34 PM [facility] Nicole Singletary DO LAB - CHEMISTRY ORDE EBN [facility] [address] [place] [address], [facility] [phone] * (ABNORMAL) BLOOD GASES ART+COOX POCT (10/06/2021 1:38 PM WAREHOUSE CLERK) pH Arterial 7.44 7.35 - 7.45 pH [...] BLOOD SPECIMEN / Unknown 10/06/2021 1:38 PM WAREHOUSE CLERK 10/06/2021 1:39 PM WAREHOUSE CLERK Damian Hager MD LAB - POINT OF CARE ORDERABLES [facility] [address] [place] [id number], [facility] [phone] * PFT OXYGEN DESATURATION STUDY (10/06/2021 1:05 PM WAREHOUSE CLERK) Impressions Rose Marie Oro MD - 10/06/2021 1:05 PM WAREHOUSE CLERK [facility] DEPARTMENT OF PULMONARY, CRITICAL CARE, AND SLEEP MEDICINE OXYGEN TITRATION STUDY Rody Zaidi 10/11/2021 INTERPRETATION The test was performed free walking on room air with starting SpO2 of 98%. The patient was able to complete 4 minutes with lowest SpO2 of 96%. Total distance was 189 meters. IMPRESSION 1. At [...] Marie Oro MD - 10/06/2021 1:05 PM WAREHOUSE CLERK Mary Benson MD 10/11/2021 4:46 PM Damian Hager MD PFT ORDERABLES * SIX MINUTE WALK (10/06/2021 1:05 PM WAREHOUSE CLERK) Impressions Rose Marie Oro MD - 10/06/2021 1:05 PM WAREHOUSE CLERK [facility] DEPARTMENT OF PULMONARY, CRITICAL CARE, AND SLEEP MEDICINE SIX MINUTE WALK TEST Rody Zaidi 10/11/2021 Interpretation: The patient walked for 6 minutes on room air and covered total distance of 132 meters. On the Reshma scale at baseline, reported dyspnea was 3 and fatigue was 3. At the end of the study, the Reshma [...] Marie Oro MD - 10/06/2021 1:05 PM WAREHOUSE CLERK Mary Benson MD 10/11/2021 4:46 PM Damian Hager MD RESPIRATORY THERAPY ORDERABLES * COMPLETE PFT W/WO BRONCHODILATOR (10/06/2021 1:05 PM WAREHOUSE CLERK) Impressions Ros eMarie Oro MD - 10/06/2021 1:05 PM WAREHOUSE CLERK [facility] DEPARTMENT OF PULMONARY, CRITICAL CARE, AND SLEEP MEDICINE PULMONARY FUNCTION TEST Please see technologist's comments mentioned in the report. INTERPRETATION: SPIROMETRY: FVC: normal FEV1: decreased FEV1/FVC ratio is decreased. (This data is based [...] of Pulmonary, Critical Care, & Sleep Medicine [facility] I have personally reviewed and intepreted the results of the study and made any necessary edits to the final impression of the fellow. Rose Marie Oro MD Narrative Rose Marie Oro MD - 10/06/2021 1:05 PM WAREHOUSE CLERK Mary Benson MD 10/11/2021 4:46 PM Damian Hager MD RESPIRATORY THERAPY ORDERABLES * CARDIAC PROCEDURE ORDER (11/02/2020 4:17 PM WAREHOUSE CLERK) Narrative 11/02/2020 4:17 PM WAREHOUSE CLERK Ordered by an unspecified provider. Scanned Document CARDIAC SERVICES ORD ERABLES * CCL CARDIAC CATH LEFT (10/24/2020 10:29 AM WAREHOUSE CLERK) Anatomical Region Laterality Modality Chest X-Ray Angiograph y Narrative 11/05/2020 4:10 PM WAREHOUSE CLERK [facility] Cardiac Catheterization Procedure Note Patient: Rody Zaidi Age: [age] year old Date of : 1960 Date of Admission: 10/24/2020 Procedure Date: 10/24/20 FELLOW / WAREHOUSE PERSON: Mart Clinton ATTENDING PHYSICIAN: Dr. Deven Cook. PREVIOUS STRESS STUDIES WITHIN 6 MONTHS: None DIAGNOSTIC APPROPRIATENESS CRITERIA: U (6) Indication: 22; Score 6 HISTORY: She is a pleasant 59 year old female with a history of PVD (s/p BL iliac stenting, L CEA, R??), DMII, active tobacco use. Patient reports 6 months of chest pain. She is on two antianginal and still had chest pain with dyspnea. Coming for [facility] for evaluation. Also reported abnormal test in past but no image or report available. Per outside environmental protection forester Stress test done in 01/2020 was clinically [...] evaluation, please review the evaluation forms in [facility]. For details on monitored clinical parameters during the intra-service sedation time, please review the procedure nurse documentation in [facility]. Total sedation administered as follows: 25 mcg IV fentanyl, 0.5 mg IV midazolam, and 0 mg IV benadryl. 10 ml of 1% lidocaine was administered subcutaneously at the access site. TOTAL CONTRAST USED (Isovue 370): 80 ml RADIATION: AK: 304 mGY DAP: 30.865 cGym2 TOTAL BLOOD LOSS: 30 ml ACCESS SITE(S): right radial artery and right femoral artery PROCEDURAL OVERVIEW: After obtaining informed consent and positioning the patient on the catheterization table, a timeout was performed to confirm the patient s name, date of , and procedure. Sedation was initiated and the patient was prepped and draped using standard sterile technique. Lidocaine was used for local anesthesia over the access site, after which the vessel was accessed and a sheath was placed using the modified Seldinger technique. Access was uncomplicated. Radial artery was tortious and access was switched to femoral access. Coronary angiography was performed using FL4 and FR4 and 6Fr catheter(s). Left heart catheterization was performed using FR4 catheter. At the conclusion of the procedure, hemostasis was achieved using manual compression, a radial compression device and an Angioseal device after removal of all catheters, wires, and sheaths. COMPLICATIONS: None HEMODYNAMIC FINDINGS: 82/15 mmHg 85/65 mmHg ANGIOGRAPHY: i. Left main: Left main has no [...] non obstructive CAD RECOMMENDATIONS AFTER DIAGNOSTIC CATHETERIZATION: Medical management of nonobstructive CAD. Aspirin 81 mg QDAY indefinitely. Aggressive modification of atherosclerotic risk factors. Maximize antianginal therapy. Further recommendation as per Outpatient Cardiology team. Ld Altamirano MD 10/24/2020 I was present for the entirety of the described procedure. Deven Gonzalez MD Monica Quijano MD CARDIAC PORTABLE SAWMILL OPERATOR RA DIANT * VAS CAROTID DUPLEX BILATERAL (10/22/2020 9:27 AM WAREHOUSE CLERK) Anatomical Region Laterality Modality Neck Intravascular Ul trasound 10/22/2020 9:04 AM WAREHOUSE CLERK Narrative Procedure Note Eric Costa MD - 10/22/2020 Kendrick Tao MD VASCULAR LAB ORDERAB LES * VAS ARTERIAL ANKLE ARM INDEX (10/22/2020 9:03 AM WAREHOUSE CLERK) Only the most recent of2 resultswithin the time period is included. Anatomical Region Laterality Modality Ankle / Foot, Upper Extremity In travascular Ultrasound 10/22/2020 8:16 AM WAREHOUSE CLERK Narrative Procedure Note Eric Costa MD - 10/22/2020 Ruy Zendejas MD VASCULAR LAB ORDERAB LES * VAS DILEEP ABD DOPPLER AO IVC ILIAC (10/22/2020 9:02 AM WAREHOUSE CLERK) Only the most recent of2 resultswithin the time period is included. Anatomical Region Laterality Modality Pelvis, Abdomen Intravascular Ul trasound 10/22/2020 8:27 AM WAREHOUSE CLERK Narrative Procedure Note Eric Costa MD - 10/22/2020 Ruy Zendejas MD VASCULAR LAB ORDERAB LES * PT-INR (10/21/2020 8:12 AM WAREHOUSE CLERK) INR 1.0 [facility] Comment: Reference Range 0.9-1.1 Moderate-intensity Warfarin Therapy 2.0-3.0 Higher-intensity Warfarin Therapy 3.0-4.0 PT 10.1 9.0 - 11.5 sec [facility] Comment: For additional information, please refer to http://education.[employer] [place]/faq/ITX832 (This link is being provided for informational/ educational purposes only.) REPORT COMMENT: FASTING:YES Test Performed at: [facility] [address] GISELE JUSTICE MD Blood BLOOD SPECIMEN / Unknown 10/21/2020 8:12 AM WAREHOUSE CLERK 10/21/2020 8:14 AM WAREHOUSE CLERK Monica Quijano MD LAB - COAGULATION O RDERABLES [address] [address] * CARDIAC EKG ORDER (10/03/2020 12:41 PM WAREHOUSE CLERK) Only the most recent of2 resultswithin the time period is included. Narrative 10/03/2020 12:41 PM WAREHOUSE CLERK Ordered by an unspecified provider. Scanned Document CARDIAC SERVICES ORD ERABLES * EKG - Clinic Performed (10/01/2020 9:43 AM WAREHOUSE CLERK) Monica Quijano MD ECG ORDERABLES * TROPONIN I (09/04/2020 11:24 AM CDT) Troponin I 0.025 <0.032 ng/mL 09/04/2020 12:05 PM CDT [facility] Blood BLOOD SPECIMEN / Unknown Venipuncture / Unknown 09/04/2020 11:24 AM CDT 09/04/2020 11:34 AM CDT Ruy Zendejas MD LAB - CHEMISTRY [address] [place] [address], [facility] [phone] * EKG 12-LEAD (09/04/2020 11:16 AM CDT) Pathologist [facility] Ventricular Rate 80 BPM [facility] MUSE Atrial Rate 80 BPM [facility] MUSE P-R Interval 142 ms [facility] MUSE QRS Duration ms 86 ms [facility] MUSE Q-T Interval ms 392 ms [facility] MUSE QTC Calculation (Bezet) 452 ms [facility] MUSE Calculated P [place] 70 degrees SL MUSE Calculated R [place] 50 degrees SL MUSE Calculated T [place] 34 degrees [facility] MUSE Interpretation EKG NORMAL SINUS RHYTHM NORMAL ECG NO PREVIOUS ECGS AVAILABLE Confirmed by Jg Casey ([id number]) on 10/02/2020 11:20:55 AM [facility] MUSE 09/04/2020 11:1 6 AM CDT 10/02/2020 11:20 AM WAREHOUSE CLERK Ruy Zendejas MD ECG ORDERABLES Performing Organization Address [facility]/ZIP Co de Phone Number [facility] MUSE * IR ANGIOGRAM LEFT LEG (09/04/2020 [...] stent placement x2 ATTENDING: Kendrick Tao MD WAREHOUSE PERSON: Ruy Zendejas MD ANESTHESIA: Moderate conscious sedation [...] sheath was then exchanged for a 5 [place] sheath over the provided J-wire. A Glidewire [...] sheath was then exchanged for a 5 [place] sheath over a J-wire. A Glidewire and angled glide catheter were then used to attempt crossing the occluded left common iliac artery from below. However, this was initially unsuccessful as it had appeared that the wire and catheter were tracking into a dissection plane in the [place] distal left common iliac artery. Crossing from [...] For increased support, the left groin 5 [place] sheath was exchanged for a longer 5 [place] sheath. The back of the Glidewire and [...] was withdrawn and the left groin 5 [place] sheath was exchanged for a 7 [place] sheath. In order to prevent jailing of the right common iliac artery and stent, the decision was made to place a balloon in the right common iliac artery and stent with plans to insufflate this in tandem with deployment of the new stent on the left. The wire on the right was exchanged for an Amplatz wire in the right groin 5 [place] sheath was exchanged for a 6 [place] sheath. A 9 mm x 40 mm Magna balloon was then advanced via the right [...] necessitating further intervention. The left groin 7 [place] sheath was exchanged for a short 7 [place] sheath. The wires were withdrawn and Mynx [...] TAO M.D. on 09/06/2020 11:05 AM . Procedure Note Kendrick [...] stent placement x2 ATTENDING: Kendrick Tao MD WAREHOUSE PERSON: Ruy Zendejas MD ANESTHESIA: Moderate conscious sedation [...] micropuncture sheath was then exchangedfor a 5 [place] sheath over the provided J-wire. A Glidewire [...] sheath was then exchanged for a 5 [place] sheath over a J-wire. AGlidewire and angled glide catheter were then used to attempt crossing theoccluded left common iliac artery from below. However, this was initially unsuccessful as it had appeared that the wire and catheter were tracking into a dissection plane in the [place] distal left common iliac artery. Crossing from [...] sheath was exchanged for a longer 5 [place] sheath. The back of the Glidewire and [...] was withdrawn and the left groin 5 [place] sheath was exchanged for a 7 [place] sheath. In order to prevent jailing of theright common iliac artery and stent, the decision was made to place a balloonin the right common iliac artery and stent with plans to insufflate this in tandem with deployment of the new stent on the left. The wire on theright was exchanged for an Amplatz wire in the right groin 5 [place] sheath was exchanged for a 6 [place] sheath. A 9 mm x 40 mm Magna balloon was then advanced via the right [...] necessitating further intervention. The left groin 7 [place] sheath was exchanged for a short 7 [place] sheath. The wires were withdrawn and Mynx [...] AM CDT Kathleen Hill MD OPHTHALMOLOGY SERV [facility] ORDERABLES * OPH OCT TEST SLU (02/09/2020 12:00 AM CDT) Anatomical Region Laterality Modality Other 02/09/2020 Tyrone Zuniga MD OPHTHALMOLO GY SERVICES ORDERABLES * XR KNEE RIGHT 4VW OR MORE (10/08/2015 8:35 AM WAREHOUSE CLERK) Anatomical Region Laterality Modality Lower Extremity Other Impressions 10/08/2015 11:03 AM WAREHOUSE CLERK Impression: 1. No acute osseous injury. 2. Bilateral osteoarthritis, severe at the medial compartments. 3. Small right knee joint effusion. This report was dictated by Marvin Kiser M.D. This report was approved by Marvin Kiser M.D on 10/08/2015 10:09 AM . IDr. CURTIS MD have personally reviewed and interpreted this examination/study. This report was electronically signed by CURTIS LUI MD on 10/08/2015 11:03 AM . Narrative 10/08/2015 11:03 AM WAREHOUSE CLERK Examination: 1. XR KNEE RIGHT 4+ VW [...] LEFT 4VW OR MORE (10/08/2015 8:35 AM WAREHOUSE CLERK) Anatomical Region Laterality Modality Lower Extremity Other Impressions 10/08/2015 11:03 AM WAREHOUSE CLERK Impression: 1. No acute osseous injury. 2. Bilateral osteoarthritis, severe at the medial compartments. 3. Small right knee joint effusion. This report was dictated by Marvin Kiser M.D. This report was approved by Marvin Kiser M.D on 10/08/2015 10:[address] CURTIS Rader MD have personally reviewed and interpreted this examination/study. This report was electronically signed by CURTIS LUI MD on 10/08/2015 11:03 AM . Narrative 10/08/2015 11:03 AM WAREHOUSE CLERK Examination: 1. XR KNEE RIGHT 4+ VW [...] electronically signed by CURTIS LUI MD on 04/12/2015 11:52 AM . Narrative 04/12/2015 11:52 [...] electronically signed by CURTIS LUI MD on 04/12/2015 10:42 AM . Narrative 04/12/2015 10:42 AM CDT Exam: XR SPINE SCOLIOSIS STANDING History: scoliosis [...] left iliac crest 8 mm higher than the right. No [...] . Александр Sanchez MD DIAGNOSTIC IMAGING O [facility] Care Teams Trust Mail Clerk Relationship Specialty Start Date End Date Matti Balderas MD [address] [place] [address] [address] [place] [address] PCP - General Family Medicine 10/27/24
--- OUTSIDE RECORDS SUMMARY | 2024-12-24 12:53 | XMS_ITS | Encounter Summary ---
Author Organization [facility] Address [address] [place] [address] Care Team Providers Care Organ Builder Name Role Phone Neva Holden MD Primary Care Provider [phone] Deisi Andrews MD Primary Care Provider [phone] Matti Balderas MD Primary Care Provider [phone] Encounter Details Date Type Department Care Team (Late st Contact Info) Description 02/13/2022 Lab Requisition [facility] Care Pathology Lab [address] [place] [address] Jose Oliver MD [address] [place] [id number] Illness, unspecified Social History Tobacco Use Types [...] (Late Contact Info) Description 01/19/2025 11:30 AM NATURAL SCIENCES MANAGER Procedure visit [facility] - Urology [address] [place] [address] [address] [place] [address] Jose Oliver MD [address] [place] [address] documented as of this encounter Goals Goal [...] unspecified documented in this encounter Care Teams Organ Builder Relationship Specialty Start Date End Date Neva Holden MD [address] [place] [id number] PCP - General 05/06/20 05/25/23 Deisi Andrews MD [address] [place] [address] [place] [id number] PCP - General Family Medicine 05/26/23 10/26/24 Matti Balderas MD [address] [place] [address] PCP - General Family Medicine 10/27/24 documented as of this encounter
--- OUTSIDE RECORDS SUMMARY | 2024-12-24 12:53 | XMS_ITS | Referral Summary ---
Author Organization [facility] [address] [place] [address] Address [address] [place] [address] Care Team Providers Care Yarder Engineer Name Role Phone Matti Balderas MD Primary Care Provider [phone] Encounters Date Type Department Care Team Description 12/22/2024 Telephone [facility] Medical [facility] Cardiology [address] [place] [address] Unknown, Notinfile 12/08/2024 10:00 AM TEST AUTOMATION ARCHITECT Office Visit [facility] Cardiology [address] [place] [address] Amber Montano NP Abnormal ECG (Primary Dx); Hypertension associated with diabetes (HCC); Paroxysmal atrial fibrillation (CMS/HCC) (HCC); Encounter for monitoring sotalol therapy; Chronic anticoagulation; History of recent pneumonia; Hospital discharge follow-up 11/18/2024 Orders Only [facility] Health Information Management [address] [place] [address] Jahaira Siu MD from Last 3 Months Allergies Active Allergy Reactions Criticality Noted Date Comments Haloperidol Other (See comments) Low 04/13/2023 Facial drooping Penicillins Hives High Reaction: Hives, Risperidone Other (See comments) Low 04/13/2023 Dry mouth Kcirplv-Pdm-Phv Reductase Inhibitors Muscle pain Medium 08/27/2023 Pt [...] (10 mg total) by mouth daily Active fexofenadine-p seudoephedrine (SAMANTHA-D 24) 180-240 mg per 24 hr [...] mouth daily 90 tablet 3 4 Active Additional Information Patient not taking.Reported on 12/08/2024 evolocumab (Repatha SureClick) 140 mg/mL pen injector Inject 1 mL (140 mg total) under the skin every 14 (fourteen) days 2 mL 11 4 Active apixaban (Eliquis) 5 mg tablet TAKE 1 TABLET BY MOUTH EVERY 12 HOURS 60 tablet 11 4 Active sotaloL (BETAPACE) 120 mg tablet Take 1 tablet (120 mg total) by mouth 2 (two) times a day 180 tablet 3 5 12/22/19 26 Active sotaloL (BETAPACE) 120 mg tablet Take 1 tablet (120 mg total) by mouth 2 (two) times a day 180 tablet 3 4 12/22/19 25 Discontin ued(Reord er) Active Problems Problem Noted Date Diagnosed Date [...] 01/21/2023 04/13/2023 Coronary artery disease invo lving [place] coronary artery of [place] heart without angina pectoris 10/24/2020 04/13/2023 Anxiety [...] often do you attend chur ch or zoroastrian services? 1 to 4 times per year 04/14/2023 Do you belong to any clubs o r organizations such as gnosticist groups, unions, fraternal or athletic groups, or [...] on file Legal Sex Female 7:48 PM TEST AUTOMATION ARCHITECT Gender Identity Not on file Sexual Orientation Not on file Last Filed Vital Signs Vital Sign Reading Time Taken Comments Blood Pressure 90/58 12/08/2024 10:08 AM TEST AUTOMATION ARCHITECT Pulse 112 12/08/2024 10:08 AM TEST AUTOMATION ARCHITECT Temperature 36.3 C (97.3 F) 04/14/2023 11:23 AM CDT Respiratory Rate 16 12/16/2023 8:10 AM TEST AUTOMATION ARCHITECT Oxygen Saturation 99% 12/08/2024 10:08 AM TEST AUTOMATION ARCHITECT Inhaled Oxygen Concentration - - Weight 77.6 kg (171 lb) 12/08/2024 10:08 AM TEST AUTOMATION ARCHITECT Height 160 cm (5' 3 ) 12/08/2024 10:08 AM TEST AUTOMATION ARCHITECT Body Mass Index 30.29 12/08/2024 10:08 AM TEST AUTOMATION ARCHITECT Plan of Treatment Not on file Medical Devices Implanted Type Area Porcelain Slusher Device Identifier Shelf Expiration Date Model / Serial / Lot Stent Bilateral: Leg Procedures Procedure Name Priority Date/Time Associated Diagnosis Comments ECG 12-LEAD Routine 12/08/2024 11:20 AM TEST AUTOMATION ARCHITECT Paroxysmal atrial fibrillation (CMS/HCC) (HCC) CARDIOLOGY DOCUMENT SCAN 11/18/2024 POCT LIPID PANEL Routine 01/20/2024 9:29 AM TEST AUTOMATION ARCHITECT Coronary artery disease involving [place] coronary artery of [place] heart without angina pectoris EGFR STAT 04/13/2023 11:30 AM CDT from Last 3 Months or Most Recently Relevant to Health Maintenance Results * ECG 12 lead (12/08/2024 11:20 AM TEST AUTOMATION ARCHITECT) 12/08/2024 11:2 0 AM TEST AUTOMATION ARCHITECT Amber Montano NP ECG ORDERABLES Final Res ult * Cardiology Document Scan (11/18/2024) Anatomical Region Laterality Modality Other Jahaira Siu MD CV CARDIAC SERVICES PROCEDU RES Final Result * POCT lipid panel (01/20/2024 9:29 AM TEST AUTOMATION ARCHITECT) Cholesterol, POC 236 mg/dL Comment:GLU = 134 HDL, POC 38 mg/dL Triglycerides, POC 231 mg/dL LDL Cholesterol POC 152 mg/dL Chol/HDL Ratio, POC 4.0 Non-HDL Cholesterol, POC 198 mg/dL Cholesterol Total, POC 236 mg/dL Capillary blood 01/20/2024 9 :29 AM TEST AUTOMATION ARCHITECT Ed Blevins MD POINT OF CARE TEST ORDER JENNIFER Final Result * eGFR (04/13/2023 11:30 AM CDT) eGFR 78 mL/min/1. 73 m2 [facility] Comment: Interpretive Data Reference Interval Normal >/= 90 mL/min/1.73m2 Mildly decreased* 60 - 89 mL/min/1.73m2 Mildly to moderately decreased 45 - 59 mL/min/1.73m2 Moderately to severely decreased 30 - 44 mL/min/1.73m2 Severely decreased 15 - 29 mL/min/1.73m2 Kidney Failure < 15 mL/min/1.73m2 *Relative to young adult level Estimated glomerular [...] CDT 04/13/2023 11:54 AM CDT Deisi Vera DEPUTY OF COUNTER INTELLIGENCE LAB BLOOD ORDERABLES Fin al Result [facility] [address] [facility] Department [place] [address] from Last 3 Months or Most Recently Relevant to Health Maintenance Insurance [facility] Advance Directives For more information, please contact: [phone] * Full Code (Latest Code Status on File) Date Activated Date Inactivated Comments 04/13/2023 6:57 PM 04/14/2023 5:30 PM Care Teams Yarder Engineer Relationship Specialty Start Date End Date Matti Balderas MD [address] [place] [address] PCP - General Family Medicine 12/08/24
--- OUTSIDE RECORDS SUMMARY | 2024-12-24 12:53 | XMS_ITS | Encounter Summary ---
Author Organization [facility] Address [address] [place] [address] Care Team Providers Care Travel Rn Name Role Phone Asa Mcnamara MD Unavailable [phone] Deisi Andrews MD Primary Care Provider [phone] Neva Holden MD Primary Care Provider [phone] Deisi Andrews MD Primary Care Provider [phone] Neva Holden MD Primary Care Provider [phone] Encounter Details Date Type Department Care Team (Late st Contact Info) Description 11/25/2018 [facility] at [address] [address] Rafael Thakur MA Social History Tobacco Use Types Packs/Day Years Used Date Smoking Tobacco: Every Day Cigarettes Smokeless Tobacco: Never Comments:1 pk day Alcohol Use Standard Drinks/Week Comments No 0 (1 standard drink = 0.6 oz pur e alcohol) Comments Unknown Sex and Gender Information Value Date Recorded Sex Assigned at Female 12/06/2019 3:36 PM HAY RAKE OPERATOR Legal Sex Female 5:20 PM CDT Gender Identity Female 12/06/2019 3:36 PM HAY RAKE OPERATOR Sexual Orientation Straight 12/06/2019 3: 36 PM HAY RAKE OPERATOR Occupation Industry Job Start Date Job [...] on filedocumented in this encounter Care Teams Travel Rn Relationship Specialty Start Date End Date Deisi Andrews MD [address] [address] PCP - General FAMILY PRACTICE 06/15/17 10/14/19 Neva Holden MD [facility] [address] [place] [address] PCP - General FAMILY PRACTICE 10/15/19 12/05/19 Deisi Andrews MD [address] [place] [address] PCP - General FAMILY PRACTICE 12/06/19 02/13/20 Neva Holden MD [facility] [address] [place] [address] PCP - General FAMILY PRACTICE 02/14/20 Asa Mcnamara MD [facility]. [facility] [address] [place] [address] Peterman Assistant Nurse Manager CARDIOVASCULAR DISEASE 05/15/16 documented as of this encounter
--- OUTSIDE RECORDS SUMMARY | 2024-12-24 12:53 | XMS_ITS | Clinical Summary ---
Author Organization [facility] Address [address], [facility] [address] [place] [address] Phone Care Team Providers Care Egg Trayer Name Role Phone Olu Nieto APRN, BED PLACEMENT COORDINATOR Primary Care Provider Allergies Active Allergy Reactions [...] 69 05/25/2019 11:50 AM CDT Temperature 36.7 C (98.1 F) 05/25/2019 11:50 AM CDT Respiratory Rate - - Oxygen Saturation 96% [...] to Health Maintenance Results * COLONOSCOPY (01/12/2019) Martir Ventura DO PROCEDURE/MINOR SURGICAL ORDERA BLES Final Result from Last 3 Months or Most Recently Relevant to Health Maintenance Insurance MEDICAID [employer] [address] [id number] Care Teams Egg Trayer Relationship Specialty Start Date End Date Olu Nieto, PRIVATE EYE, BED PLACEMENT COORDINATOR [address] [place] [address] PCP - General Certified Nurse Practitioner 11/02/18
--- OUTSIDE RECORDS SUMMARY | 2024-12-24 12:53 | XMS_ITS | Clinical Summary ---
Author Organization [facility] Address [address] [place] [address] Care Team Providers Care Wire Basket Maker Name Role Phone Provider, Abstract Primary Care [...] up face Venom-Wasp Anaphylaxis High 04/05/2019 Medications albuterol HFA 90 mcg inhaler Take 2 [...] tablet Take 30 mg by mouth daily hazardous substances scientist. Active losartan (COZAAR) 100 mg tablet Take [...] = 0.6 oz pur e alcohol) rarely Comments Unknown Sex and Gender Information Value Date Recorded Sex Assigned at Not on file Legal Sex Female 12:48 PM CDT Gender Identity Not on file Sexual Orientation Not on file Last Filed Vital Signs Vital Sign Reading Time Taken Comments Blood Pressure 135/111 05/04/2019 1:59 PM CDT Pulse 86 05/04/2019 1:59 PM CDT Temperature 36.9 C (98.4 F) 05/04/2019 1:59 PM CDT Respiratory Rate 18 05/04/2019 1:59 PM CDT [...] - 2023-2 5 season) 2024 03/13/2021, 02/17/2021 DTAP/TDAP/TD VACCINES (3 - T d or Tdap) 05/27/2031 05/27/2021, 01/31/2019 Insurance [facility] MEDICAID Care Teams Wire Basket Maker Relationship Specialty Start Date End Date Provider, Abstract NO ADDRESS ON FILE PCP - General 03/24/19
--- OUTSIDE RECORDS SUMMARY | 2024-12-24 12:53 | XMS_ITS | Clinical Summary ---
Author Organization [facility] [address] [facility] Address [address] [place] [address] Care Team Providers Care Service Worker Name Role Phone Matti Balderas MD Primary Care Provider [phone] Allergies Active Allergy Reactions Criticality Noted Date Comments Haloperidol Other (See comments) Low 04/13/2023 Facial drooping Penicillins Hives High Reaction: Hives, Risperidone Other (See comments) Low 04/13/2023 Dry mouth Gsgigbz-Nzr-Wvz Reductase Inhibitors Muscle pain Medium 08/27/2023 Pt [...] 01/21/2023 04/13/2023 Coronary artery disease invo lving salamatof coronary artery of salamatof heart without angina pectoris 10/24/2020 04/13/2023 Anxiety [...] Date Resolved Date Hyperlipidemia, mixed 03/22/2017 04/13/20232023 Encounters Date Type Department Care Team Description 12/22/[address] [facility] [address] [facility] [address] [place] [phone] Unknown, Notinfile 12/08/2024 10:00 AM JEWEL LATHE OPERATOR Office Visit [facility] Cardiology [address] [place] [phone] Amber Montano NP Abnormal ECG (Primary Dx); Hypertension associated with diabetes (HCC); Paroxysmal atrial fibrillation (CMS/HCC) (HCC); Encounter for monitoring sotalol therapy; Chronic anticoagulation; History of recent pneumonia; Hospital discharge follow-up 11/18/2024 Orders Only [facility] Health Information Management [address] [place] [address] Jahaira Siu MD from Last 3 Months Surgical History Surgery Date Site/Laterality Comments [place] CHOLECYSTECTOMY Cholecystectomy - (Added by TW Conv) [place] DELIVERY ONLY Section - (Added by TW Conv) [place] LIG/TRNSXJ FLP TUBE ABDL/ VAG APPR UNI/BI Tubal Ligation - (Added by TW Conv) OTHER SURGICAL HISTORY 01/17/2024 bladder procedure at [facility] Medical History Medical History Date Comments [...] History Relation Name Comments Diabetes Other Diabetes Mellit us - (Added by TW Conv) Hypertension Other [...] often do you attend chur ch or christianity services? 1 to 4 times per year [...] on file Legal Sex Female 7:48 PM JEWEL LATHE OPERATOR Gender Identity Not on file Sexual Orientation Not on file Obstetrics History Last Filed Vital Signs Vital Sign Reading Time Taken Comments Blood Pressure 90/58 12/08/2024 10:08 AM JEWEL LATHE OPERATOR Pulse 112 12/08/2024 10:08 AM JEWEL LATHE OPERATOR Temperature 36.3 C (97.3 F) 04/14/2023 11:23 AM CDT Respiratory Rate 16 12/16/2023 8:10 AM JEWEL LATHE OPERATOR Oxygen Saturation 99% 12/08/2024 10:08 AM JEWEL LATHE OPERATOR Inhaled Oxygen Concentration - - Weight 77.6 kg (171 lb) 12/08/2024 10:08 AM JEWEL LATHE OPERATOR Height 160 cm (5' 3 ) 12/08/2024 10:08 AM JEWEL LATHE OPERATOR Body Mass Index 30.29 12/08/2024 10:08 AM JEWEL LATHE OPERATOR Plan of Treatment Health Maintenance Due Date [...] 03/13/2021, 02/17/2021, 02/06/2021 Influenza Vaccine (#1) 2024 , 01/05/2022, 08/28/2020, Additional history exists Lipid Panel 01/19/2025 01/20/2024, 08/15, 12/19/2018 Pneumococcal vaccine <65 (3 of 3 - PPSV23 or PCV20) 2026 10/21/2016, 07/23/2016, 12/16/2015 DTaP/Tdap/Td Vaccine (3 - Td or Tdap) 05/27/2031 05/27/2021, 01/31/2019 Medical Devices Implanted Type Area Glaze Carrier Device Identifier Shelf Expiration Date Model / Serial / Lot Stent Bilateral: Leg Procedures Procedure Name Priority Date/Time Associated Diagnosis Comments ECG 12-LEAD Routine 12/08/2024 11:20 AM JEWEL LATHE OPERATOR Paroxysmal atrial fibrillation (CMS/HCC) (HCC) CARDIOLOGY DOCUMENT SCAN 11/18/2024 POCT LIPID PANEL Routine 01/20/2024 9:29 AM JEWEL LATHE OPERATOR Coronary artery disease involving salamatof coronary artery of salamatof heart without angina pectoris EGFR STAT 04/13/2023 11:30 AM CDT from Last 3 Months or Most Recently Relevant to Health Maintenance Results * ECG 12 lead (12/08/2024 11:20 AM JEWEL LATHE OPERATOR) 12/08/2024 11:2 0 AM JEWEL LATHE OPERATOR Amber Montano NP ECG ORDERABLES Final Res ult * Cardiology Document Scan (11/18/2024) Anatomical Region Laterality Modality Other Jahaira Siu MD CV CARDIAC SERVICES PROCEDU RES Final Result * POCT lipid panel (01/20/2024 9:29 AM JEWEL LATHE OPERATOR) Cholesterol, POC 236 mg/dL Comment:GLU = 134 HDL, POC 38 mg/dL Triglycerides, POC 231 mg/dL LDL Cholesterol POC 152 mg/dL Chol/HDL Ratio, POC 4.0 Non-HDL Cholesterol, POC 198 mg/dL Cholesterol Total, POC 236 mg/dL Capillary blood 01/20/2024 9 :29 AM JEWEL LATHE OPERATOR Ed Blevins MD POINT OF CARE TEST ORDER JENNIFER Final Result * eGFR (04/13/2023 11:30 AM CDT) eGFR 78 mL/min/1. 73 m2 [facility] Comment: Interpretive Data Reference Interval [...] CDT 04/13/2023 11:54 AM CDT Deisi Vera PASTE MAKER LAB BLOOD ORDERABLES Fin al Result [facility] [address] [facility] Department [place] [address] from Last 3 Months or Most Recently Relevant to Health Maintenance Insurance [facility] Advance Directives For more information, please contact: [phone] * Full Code (Latest Code Status on File) Date Activated Date Inactivated Comments 04/13/2023 6:57 PM 04/14/2023 5:30 PM Care Teams Service Worker Relationship Specialty Start Date End Date Matti Balderas MD [address] [place] [address] PCP - General Family Medicine 12/08/24
--- OUTSIDE RECORDS SUMMARY | 2024-12-24 12:53 | XMS_ITS | Encounter Summary ---
Author Organization [facility] Address [address] [place] [address] Care Team Providers Care Rv Body Mechanic Name Role Phone Asa Mcnamara MD Unavailable [phone] Neva Holden MD Primary Care Provider [phone] Deisi Andrews MD Primary Care Provider [phone] Neva Holden MD Primary Care Provider [phone] Encounter Details Date Type Department Care Team (Late st Contact Info) Description 11/01/2019 [facility] at [address] [address] Rafael Thakur MA Social History Tobacco Use Types Packs/Day Years Used Date Smoking Tobacco: Every Day Cigarettes Smokeless Tobacco: Never Comments:1 pk day Alcohol Use Standard Drinks/Week Comments No 0 (1 standard drink = 0.6 oz pur e alcohol) Comments Unknown Sex and Gender Information Value Date Recorded Sex Assigned at Female 12/06/2019 3:[address] MANAGER Legal Sex Female 5:20 PM CDT Gender Identity Female 12/06/2019 3:[address] MANAGER Sexual Orientation Straight 12/06/2019 3: [address] MANAGER Occupation Industry Job Start Date Job [...] on filedocumented in this encounter Care Teams Rv Body Mechanic Relationship Specialty Start Date End Date Neva Holden MD [facility] [address] [place] [address] PCP - General FAMILY PRACTICE 10/15/19 12/05/19 Deisi Andrews MD [address] [place] [address] PCP - General FAMILY PRACTICE 12/06/19 02/13/20 Neva Holden MD [facility] [address] [place] [address] PCP - General FAMILY PRACTICE 02/14/20 Asa Mcnamara MD [facility]. [facility] [address] [place] [address] Vinton Dredge Mate CARDIOVASCULAR DISEASE 05/15/16 documented as of this encounter
--- OUTSIDE RECORDS SUMMARY | 2024-12-24 12:53 | XMS_ITS | Encounter Summary ---
Author Organization [facility] Address [address] [place] [address] Care Team Providers Care Instructor Ground Services Name Role Phone Neva Holden MD Primary Care Provider [phone] Deisi Andrews MD Primary Care Provider [phone] Matti Balderas MD Primary Care Provider [phone] Encounter Details Date Type Department Care Team (Late st Contact Info) Description 02/13/2022 Lab Requisition [facility] Care Pathology Lab [address] [place] [address] Jose Oliver MD [address] [place] [phone] Illness, unspecified Social History Tobacco Use Types [...] (Late Contact Info) Description 01/19/2025 11:30 AM WOOD PATTERNMAKER Procedure visit [facility] - Urology [address] [place] [address] [address] [place] [address] Jose Oliver MD [address] [place] [address] documented as of this encounter Goals Goal [...] Diagnosis A. Urinary bladder, transurethral resection, (OSC: [id number]; 01/21/2022): - Invasive urothelial cell carcinoma, high-grade - No definitive detrusor muscle seen B. Urinary bladder, left ureteral orifice transurethral resection, (OSC: [id number]; 01/21/2022): - Invasive urothelial cell carcinoma, high-grade - Detrusor muscle present, negative for tumor invasion 02/16/2022 1:52 PM CDT [facility] Microscopic Description and Comment Performed. 02/16/2022 1:52 PM CDT [facility] Clinical History 02/16/2022 1:52 PM CDT [facility] Materials Received Received are 3 slide(s) labeled [id number] along with a copy of the outside pathology report. The materials originate from [facility], Department of Pathology, [address] [place] [address], [address]. All original materials are returned to the referring institution, along with a copy of our final report. 02/16/2022 1:52 PM CDT [facility] PATHOLOGY LAB Disclaimer The performance characteristics of all immunohistochemical and indirect immunofluorescence stains (if any) cited in this report were determined by the Histopathology Laboratory of [facility]. Some of these tests were developed [...] attending (teaching) pathologist. 02/16/2022 1:52 PM CDT [facility] PATHOLOGY LAB Case Report Surgical Pathology Report Case: [id number] Authorizing Provider: Jose Oliver MD Collected: 02/13/2022 08:57 AM Ordering Location: [facility] Pathology Lab Received: 02/13/2022 08:57 AM Pathologist: Gian Jay MD Specimen: Slide Consultation 02/16/2022 1:52 PM CDT [facility] PATHOLOGY LAB Embedded Images 02/16/2022 1:52 PM CDT [facility] PATH[facility]Y LAB Pathology/Cytolo gy SURGICAL PATHOLOGY CONSULTATION AND REPORT ON REFERRED SLIDES PREPARED ELSEWHERE / Unknown 02/13/2022 8:57 AM CDT 02/13/2022 8:57 AM CDT Jose Oliver MD LAB - PATHOLOGY/CY TOLOGY ORDERABLES Performing Organization Address [facility] Co de Phone Number [facility] PATHOLOGY LAB [address] [phone] documented in this encounter Visit Diagnoses Diagnosis Illness, unspecified documented in this encounter Care Teams Instructor Ground Services Relationship Specialty Start Date End Date Neva Holden MD [address] [place] [address] [place] [phone] PCP - General 05/06/20 05/25/23 Deisi Andrews MD [address] [place] [address] [place] [phone] PCP - General Family Medicine 05/26/23 10/26/24 Matti Balderas MD [address] [place] [phone] PCP - General Family Medicine 10/27/24 documented as of this encounter
--- OUTSIDE RECORDS SUMMARY | 2024-12-24 12:53 | XMS_ITS | Referral Summary ---
Author Organization [facility] Address [address] [facility] [place] [address] Care Team Providers Care Telephone Directory Deliverer Name Role Phone Matti Balderas MD Primary Care Provider [phone] Source Comments [facility],non-owned Affiliates and Associated Physician Practices is amultiple site organization consisting of ambulatory clinics and hospital sitesin [place], [place] and [place]. This disclosure is being madepursuant to the Care Everywhere program and may not contain all information available regarding this patient. Last updated 18.[facility] Encounters Date Type Department Care Team Description 12/19/2024 Travel 10/27/2024 Travel 10/27/2024 1:30 PM 911 EMERGENCY SERVICES DISPATCHER Procedure visit [facility] - Urology [address] [place] [address] [address] [place] [address] Jose Oliver MD Malignant neoplasm of urinary [...] times daily with morning and evening meal 7 Active vitamin D, ergocalciferol, (DRISDOL) [address] UNITS capsule Take 1 (one) capsule by mouth every 7 days 9 Active cromolyn (CROLOM) 4 % ophthalmic solution Instill 1 drop into both eyes 3 times daily 10 mL 4 0 Active EPINEPHrine (EPIPEN) 0.3 MG/0.3ML auto-injector pen epinephrine 0.3 mg/0.3 mL injection, auto-injector Active albuterol (PROVENTIL;VENTOLIN ) (2.5 MG/3ML) 0.083% nebulizer solution Inhale 2.5 (two and one-half) mg by mouth every 4 hours as needed for Shortness of Breath 75 mL 1 Active Additional Information Patient not taking.Reported on 11/22/2023 clopidogrel (PLAVIX) 75 MG tablet Take 1 (one) tablet by mouth once daily 90 tablet 2 Active ezetimibe (ZETIA) 10 MG tablet Take 1 (one) tablet by mouth once daily 90 tablet 4 2 Active losartan (COZAAR) 100 MG tablet Take 1 (one) tablet by mouth once daily 90 tablet 4 2 Active nitroGLYCERIN (NITROSTAT) 0.4 MG tablet Dissolve 1 (one) tablet under the tongue every 5 minutes as needed for Angina 100 tablet 4 2 Active Additional Information Patient not taking.Reported on 01/06/2024 albuterol HFA (PROAIR HFA) 108 (90 Base) MCG/ACT inhalerIndications: Stage 2 moderate COPD by GOLD classification ([facility]) Inhale 2 (two) puffs by mouth every 4 hours as needed 8.5 g 11 2 Active cetirizine (ZYRTEC) 10 MG tablet cetirizine 10 mg tablet TAKE 1 TABLET BY MOUTH ONCE DAILY NEEDED Active ibuprofen (MOTRIN) 600 MG tablet Take 1 (one) tablet by mouth every 6 hours as needed (for post operative pain) 30 tablet 2 Active Additional Information Patient not taking.Reported on 06/15/2024 evolocumab (REPATHA SURECLICK) 140 MG/ML auto-injector INJECT 1 PEN UNDER THE SKIN EVERY 14 DAYS 6 mL 4 2 Active cyclobenzaprine (Flexeril) 10 MG tablet 1 po tid prn Active fluticasone propionate (Flonase) 50 MCG/ACT nasal spray USE 1 SPRAY(S) IN EACH NOSTRIL ONCE DAILY Active metoclopramide (Reglan) 5 MG tablet Take 1 (one) tablet by mouth every 6 hours as needed Active Eliquis 5 MG tablet Take 1 (one) tablet by mouth every 12 hours 3 Active sotalol (Betapace) 80 MG tablet Take 1.5 (one and one-half) tablets by mouth every 12 hours 3 Active multivitamin daily tablet Take 1 (one) tablet by mouth daily with food Active ascorbic acid (Vitamin C) 500 MG tablet Take 1 (one) tablet by mouth once daily Active hyoscyamine (Levsin) 0.125 MG IR tablet TAKE 1 TABLET BY MOUTH EVERY 4 HOURS NEEDED FOR SPASMS 30 tablet 4 Active Additional Information Patient not taking.Reported on 06/15/2024 ondansetron, disintegrating, (Zofran ODT) 8 MG tablet 4 Active dexlansoprazole (Dexilant) 30 MG capsule Take 1 (one) capsule by mouth once daily Active nicotine (Nicoderm CQ) 21 MG/24HR patchIndications:MD Arechiga (recurrent major depressive disorder) in remission ([facility]) Apply 1 (one) patch to skin once daily 30 patch 2 4 Active nicotine (Nicotrol) 10 MG inhalerIndications: MDD (recurrent major depressive disorder) in remission ([facility]) Inhale 10 mg by mouth as needed for Smoking Cessation 168 Each 2 4 Active acetaminophen (Tylenol) 325 MG tablet Take 2 (two) tablets by mouth every 6 hours as needed for Fever or Pain Maximum allowable Acetaminophen amount = 4 Grams (4000 mg) / 24 hours. 4 Active oxyBUTYnin CR 24hr (Ditropan XL) 15 MG tabletIndications:M alignant neoplasm of urinary bladder, unspecified site (HCC),Bladder spasms,Urinary frequency Take 1 (one) tablet by mouth once daily 90 tablet 4 4 Active fenofibrate (Fenoglide) 120 MG Take 1 (one) tablet by mouth once daily 4 Active FLUoxetine (PROzac) 20 MG capsule Take 1 (one) capsule by mouth once daily 30 capsule 3 5 Active clonazePAM (KlonoPIN) 0.5 MG tabletIndications:G AD (generalized anxiety disorder) Take 0.5 (one-half) tablet by mouth 3 times daily as needed for Anxiety 90 tablet 2 5 Active LORazepam (Ativan) 0.5 MG tablet Take 1 (one) tablet by mouth 3 times daily as needed for Anxiety 90 tablet 2 4 12/19/19 Discontinu ed(Clinica l Decision) FLUoxetine (PROzac) 40 MG capsule Take 1 (one) capsule by mouth once daily 30 capsule 2 4 12/14/19 25 Discontinu ed(Reorder ) Active Problems Problem Noted Date Diagnosed Date CAD in [place] artery 10/24/2020 MDD (recurrent major depressive disorder) [...] LURIA, FLUZONE TRIVALENT; 6MO+) (IIV3) 12/16/2015 Covid Haileo primary monoval ent 12+ yr 0.3mL Purple cap 03/13/2021,02/17/2021 FLU VACCINE QUAD IIV4 SPLIT 0.25 ML IM 08/28/2020 INFLUENZA VACCINE 08/28/2020 INFLUENZA VACCINE, QUADR. (F LUZONE; FLULAVAL; [...] Comments Blood Pressure 142/84 12/19/2024 9:31 AM 911 EMERGENCY SERVICES DISPATCHER Pulse 88 12/19/2024 9:31 AM 911 EMERGENCY SERVICES DISPATCHER Temperature 36.5 C (97.7 F) 12/19/2024 9:31 AM 911 EMERGENCY SERVICES DISPATCHER Respiratory Rate 18 10/27/2024 2:11 PM 911 EMERGENCY SERVICES DISPATCHER Oxygen Saturation 96% 12/19/2024 9:31 AM 911 EMERGENCY SERVICES DISPATCHER Inhaled Oxygen Concentration 21% 06/21/2024 8 :20 AM CDT Weight 77.6 kg (171 lb) 12/19/2024 9:31 AM 911 EMERGENCY SERVICES DISPATCHER Height 160 cm (5' 3 ) 10/27/2024 2:11 PM 911 EMERGENCY SERVICES DISPATCHER Body Mass Index 30.29 10/27/2024 2:11 PM 911 EMERGENCY SERVICES DISPATCHER Functional Status Functional Status Response Date of [...] st Contact Info) Description 01/19/2025 11:30 AM 911 EMERGENCY SERVICES DISPATCHER Procedure visit [facility] - Urology [address] [place] [address] [address] [place] [address] Jose Oliver MD [address] [phone] Goals Goal Patient Goal Type Associated Problems [...] last dose Medical Devices Implanted Type Area Senior Lead Java Developer Device Identifier Shelf Expiration Date Model / Serial / Lot Stent Trchbr 10mm 7fr 38mm 80cm Cvr Cath Implanted:Qty: 1 on 09/04/2020 by Jose A Clark MD at [facility] N/A: Abdomen [employer] 04/05/2023 [id number] / / [id number] Stent Trchbr 8mm 7fr 38mm 80cm Cvr Cath Implanted:Qty: 1 on 09/04/2020 by Jose A Clark MD at [facility] N/A: Abdomen [employer] 05/22/2023 [id number] / / [id number] Procedures Procedure Name Priority Date/Time Associated Diagnosis Comments URINALYSIS AUTO - POINT OF CARE (AMB) [facility] Routine 10/27/2024 2:13 PM 911 EMERGENCY SERVICES DISPATCHER Malignant neoplasm of urinary bladder, unspecified site (HCC) BASIC METABOLIC PANEL (CALCIUM TOTAL) STAT 06/28/2024 3:17 PM CDT HEMOGLOBIN A1C Routine 11/22/2023 10:36 AM 911 EMERGENCY SERVICES DISPATCHER Pre-op exam from Last 3 Months or Most Recently Relevant to Health Maintenance Results * URINALYSIS AUTO - POINT OF CARE (AMB) [facility] (10/27/2024 2:13 PM 911 EMERGENCY SERVICES DISPATCHER) Glucose UA neg [facility] [address] Bilirubin UA POCT neg [facility] [address] Ketones UA POCT neg [facility] [address] Specific [place] UA 1.[address] [facility] [address] Blood Urine POCT neg [facility] [address] pH UA 5.5 [facility] [address] Protein UA neg [facility] [address] Urobilinogen UA 0.2 [facility] [address] Nitrite UA neg [facility] [address] WBC UA neg [facility] [address] Urine URINE / Unknown 10/27/2024 2 :13 PM 911 EMERGENCY SERVICES DISPATCHER Jose Oliver MD LAB - POINT OF CAR E ORDERABLES [facility] [address] [place] [address], [facility] [phone] * BASIC METABOLIC PANEL (CALCIUM TOTAL) (06/28/2024 3:17 PM CDT) BUN 15 7 - 26 mg/dL 06/28/2024 3:51 PM [facility] Creatinine 0.69 0.56 - 0.96 mg/dL 06/28/2024 3:51 PM [facility] Sodium 138 136 - 145 mmol/L 06/28/2024 3:51 PM [facility] Potassium 4.0 3.5 - 4.5 mmol/L 06/28/2024 3:51 PM [facility] Chloride 103 98 - 107 mmol/L 06/28/2024 3:51 PM [facility] CO2 26 22 - 29 mmol/L 06/28/2024 3:51 PM [facility] Glucose 102 70 - 115 mg/dL 06/28/2024 3:51 PM [facility] Calcium 9.4 8.4 - 10.2 mg/dL 06/28/2024 3:51 PM [facility] Anion Gap 9 6 - 16 06/28/2024 3:51 PM [facility] BUN/Creatinine Ratio 22 7 - 23 06/28/2024 3:51 PM [facility] Osmolality Calculated 287 275 - 295 mOsm/kg 06/28/2024 3:51 PM [facility] eGFR by CKD-EPI >90 >=90 mL/min/1.7 3 m2 06/28/2024 3:51 PM [facility] Blood BLOOD SPECIMEN / Unknown Venipuncture / Unknown 06/28/2024 3:17 PM CDT 06/28/2024 3:26 PM CDT Martir Choi MD LAB - CHEMISTRY BASSAM CONTR[facility]AS [facility] [address] [place] [address], [place] [phone] * (ABNORMAL) HEMOGLOBIN A1C [IN-HOUSE TEST] (11/22/2023 10:36 AM 911 EMERGENCY SERVICES DISPATCHER) Hemoglobin A1c 6.4(H) <=5.6 % 11/22/2023 12:05 PM [facility] Estimated Average Glucose 137 mg/dL 11/22/2023 12:05 PM [facility] Comment: HbA1c Interpretation: Normal : < 5.7% Pre-diabetes: 5.7-6.4% Diabetes: Equal to or greater than 6.5% Test results diagnostic of diabetes should be repeated for confirmation. Treatment target values recommended by ADA and other clinical organizations should be used to evaluate metabolic control in patients. Reference: [place] Diabetes Association, Standards of Care in Diabetes -2020 In patients 70 years and older consider HbA1c target range of 7.0-7.5% (Reference: Montez Rosas et al. JAMDA. 2012) The Sebia assay for the measurement of HbA1c is a National Glycohemoglobin Standardization Program (NGSP) certified method. Blood BLOOD SPECIMEN WITH EDTA / Unknown Lab Venipuncture / Unknown 11/22/2023 10:36 AM 911 EMERGENCY SERVICES DISPATCHER 11/22/2023 10:42 AM 911 EMERGENCY SERVICES DISPATCHER Jasmin Moore DESIGN/ANIMATION INSTRUCTOR-GRID MAKER LAB - CHEMISTRY ORDERABLES [facility] [address] [place] [address], [place] [phone] from Last 3 Months or Most Recently Relevant to Health Maintenance Advance Directives * Full Code (Latest Code Status on File) Date Activated Date Inactivated Comments 10/24/2020 10:10 AM 10/24/2020 6:00 PM Care Teams Telephone Directory Deliverer Relationship Specialty Start Date End Date Matti Balderas MD [address] [place] [phone] PCP - General Family Medicine 10/27/24
--- OUTSIDE RECORDS SUMMARY | 2024-12-24 12:53 | XMS_ITS | Data Portability ---
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 specimen 2020 [facility] [place] Covid 19 Testing, [address] [facility], [place], [address], 10/20/2021 10:56:[address] referral 2020 021 [facility] (Audiology), [address] [place] [address], [address], 09/26/2021 12:55:12 hearing screening referral 2020 021 [facility] (Audiology), [address], [place], [address], 09/25/2021 17:01:30 pain managemen t referral 2023 024 [facility] Kary Hendricks, [address], [place], [address], 10/24/2024 15:10:37 pain managemen t referral 2024 025 OLIVER Contrerasjose juan Najerar, [address], [place], [address], 12/07/2024 17:09:52 Procedures None recorded. Surgeries None recorded. Imaging XR, chest, 2 view [address], [facility] [address], [place], [address], 11/30/2024 12:25:55 Medication Orders doxycycli ne monohydra te 100 mg capsule 2020 021 [facility][id number], [address], [place], [place], [id number], 08/04/2022 12:31:15 prednison e 20 mg tablet 2020 021 [facility] #37407, [address], [place], [place], [id number], 08/04/2022 12:30:57 Ciprodex 0.3 %-0.1 % ear drops,kayla pension 2021 022 [facility], [address] [facility], [place], [address], 10/05/2024 09:47:02 doxycycli ne hyclate 100 mg capsule 2021 022 [facility], [address] [facility], [place], [address], 10/05/2024 09:47:27 hydrocodo ne 10 mg-acetam inophen 325 mg tablet 2023 024 [facility]02962, [address], [place], [place], [id number], 10/05/2024 17:20:51 promethaz ine 12.5 mg tablet [address] [facility]268, [address], [place], [place], [id number], 11/30/2024 12:25:55 tramadol 50 mg tablet 2024 025 [facility], [address], [place], [place], [id number], 11/30/2024 19:39:53 Patient TargetsNo targets recorded. Patient Instructions Encounter Date Encounter Id Patient Instructions Last Modified By Organization Details Last Modified Time 10/05/2024 [id number] Quitting Tobacco : Care Instructions Not available 10/05/2024 11:33:15 11/30/2024 [id number] Quitting Tobacco : Care Instructions Not available 11/30/2024 12:25:55 Reason for Referral Medical Technologist Generalist Referral for Ra ateral hearing loss Referring Physician: Ann Slaughter [facility], Encounter Date: 09/25/2021 Hearing Screening Referral f or Bilateral hearing loss Referring Physician: Ann Slaughter [facility], Encounter Date: 09/25/2021 Pain Management Referral for Osteoarthritis Referring Physician: Matti Balderas [facility], Encounter Date: 10/05/2024 Pain Management Referral for Degeneration of lumbar intervertebral disc Referring Physician: Matti Balderas [facility], Encounter Date: 11/30/2024 Results Created Date Observation Date Name Description Value Unit Range Abnormal Flag Note LastModifiedBy Organization Detail LastModifiedTime 10/23/2010/22/2021 MAMMO , scree derrell, bilat eral No observ ation record ed. [facility] [address], [place], [address], 10/23/2021 15:22:23 10/31/20 21 10/31/2021 XR, chest No observ ation record ed. [facility] [address], [place], [address], 10/31/2021 14:31:31 Result Notes None recorded. Problems Name Problem SNOMED Code Status Onset Date Resolution Date Notes Provider Name and Address Organization Details Recorded Time Diabetes mellitus 93039233 Active 2018 Lindaesther Hansen [place] null, [place] [facility] 9 14:43:31 Diverticul itis 918040677 Active 2018 Dr. Audrey Hansen [place], [place] [facility] 9 14:55:42 Chronic obstructiv e pulmonary disease 18204514 Active 2018 Lindaesther [place], [place] [facility] 9 14:57:53 Asthma 288205925 Active 2018 Lindaesther Hansen MA serg, [place] - [facility] 9 14:57:58 Peripheral vascular disease 424613317 Active 2018 Lindaesther Hansen [place], [place] [facility] 9 14:58:06 Tick bite 90700474 Active 2020May 18, 2021 Hollis Dash PA-C Attn: Tiffanie fontaine,[address] [facility], [place], [address], [place] [facility] 10:21:42 Essential hypertensi on 34996986 Active 2020 Hollis Dash PA-C Attn: Tiffanie fontaine,[address] [facility], [place], [address], [place] [facility] 10:23:35 Lumbago with sciatica 195434075 Active 2020 Hollis Dash PA-C Attn: Tiffanie g,[address] [facility], [place], [address], [place] [facility] 10:24:47 Tobacco dependence syndrome 36482856 Active 2020 JOSE PARDO Attn: Tiffanie g,[address] [facility], [place], [address], [place] [facility] 09:41:09 Smoker 67123738 Active 2023 Matti Balderas MD Attn: Tiffanie fontaine,[address] [facility], [place], [address], [place] [facility] 4 10:19:16 Hyperchole sterolemia 92545859 Active 2023 Matti Baldreas MD Attn: Tiffanie fontaine,[address] [facility], [place], [address], [place] [facility] 4 10:19:16 Atheroscle rosis of coronary artery without angina pectoris 8062232134694 03 Active 2023 Matti Balderas MD Attn: Tiffanie fontaine,[address] [facility], [place], [address], [place] [facility] 4 10:19:17 Malignant neoplasm of urinary bladder 684633136 Active 2023 Matti Balderas MD Attn: Tiffanie fontaine,[address] [facility], [place], [address], [facility] 4 10:19:18 Degenerati on of lumbar interverte bral disc 03956046 Active 2024 Matti Balderas MD Attn: Tiffanie fontaine,[address] [facility], [place], [address], [facility] 5 11:35:06 Problem Notes None recorded. Procedures Surgical History Date Name Laterality Status Provider Name and Address Organization Details Recorded Time 2018 esophagogastroduodenoscopy completed Jourdan Hansen MA [facility] 9 14:55:25 2018 colonoscopy completed Linda Hansen MA [place] - [facility] 9 14:55:16 cataract surgery completed Linda Hansen MA [place] [facility] 0 11:39:24 Imaging Results Imaging Date Name Status LastModified by Organiz ation Details LastModified Time 10/22/2021 MAMMO, screening, bilateral completed [facility] [address], [place], [address], 10/23/2021 15:22:23 10/31/2021 XR, chest completed [facility] [address], [place], [address], 10/31/2021 14:31:31 Procedure Notes None recorded. Medical Equipment None Reported. Allergies Allergen ID Allergen Name Allergen Category Reaction Reaction Severity Criticality Documentation Date Start Date Code Code System Note Provider Name and Address Organization Details Recorded Time 152895 Product containin g penicilli n and antibioti c (product) medicatio n Not available Not available Not available 08/02/2019 93134 05 SNOMED repea ts words and face turns red? Not Available Not Available Not Available 899427 haloperid ol medicatio n Not available Not available Not available 08/02/2019 5093 RxNorm Not Available Not Available Not Available 218311 triazolam medicatio n Not available Not available Not available 08/02/2019 54137 RxNorm Not Available Not Available Not Available 068159 azithromy lorena medicatio n Not available Not available Not available 11/17/2019 67382 RxNorm pain in stoma ch for hours Not Available Not Available Not Available 438815 Risperdal medicatio n Not available Not available Not available 04/19/2020 06020 8 RxNorm Not Available Not Available Not Available 836658 Product containin g 3-hydroxy -3-methyl glutaryl- coenzyme A reductase inhibitor (product) medicatio n Not available Not available Not available 10/05/2024 88679 009 SNOMED Not Available Not Available Not Available Medications Name Sig Start Date Stop Date Status Note LastModified by Organization Details LastModified Time losartan 50 mg tablet TAKE 1 TABLET BY MOUTH DAILY active Not Available Not Available No t Available fluoxetine 40 mg capsule TAKE 1 CAPSULE [...] Not Available Not Available No t Available prochlorper azine maleate 5 mg tablet 08/28 completed Not Available Not Available Not Available ondansetron HCl 8 mg tablet TAKE 1 TABLET BY MOUTH EVERY 8 HOURS NEEDED 10/05 completed Not Available Not Available Not Available meloxicam 15 mg tablet Take 1 tablet every day by oral route as needed. 11/22 completed Not Available Not Available Not Available promethazin e 12.5 mg tablet TAKE 1 TABLET BY MOUTH FOUR TIMES DAILY active Not Available Not Available No t Available ondansetron HCl 4 mg tablet TAKE 1 TABLET BY MOUTH EVERY 8 HOURS NEEDED FOR NAUSEA OR VOMITING active Not Available Not Available No t Available famotidine 40 mg tablet TAKE 1 [...] No t Available sotalol 120 mg tablet 2023 active [...] completed Not Available Not Available Not Available magnesium oxide 400 mg (241.3 mg magnesium) tablet TAKE 1 TABLET BY MOUTH DAILY [...] Not Available Not Available No t Available midodrine 2.5 mg tablet TAKE 2 TABLETS BY MOUTH TWICE DAILY active Not Available [...] Available ondansetron 4 mg disintegrat ing tablet DISSOLVE 1 TABLET ON THE TONGUE EVERY 8 HOURS NEEDED FOR NAUSEA OR VOMITING active Not Available Not Available No t Available cefdinir 300 mg capsule TAKE 1 CAPSULE BY MOUTH EVERY 12 HOURS active Not Available Not Available No t Available losartan 100 mg tablet TAKE 1 TABLET BY MOUTH EVERY DAY active Not Available Not Available No t Available fluoxetine 20 mg capsule TAKE ONE CAPSULE BY MOUTH EVERY EVENING active Not Available Not Available No t Available fluticasone propionate 50 mcg/actuati on nasal [...] 1 TABLET BY MOUTH EVERY 8 HOURS active Not Available Not Available No t Available nicotine 7 mg/24 hr daily transdermal [...] nsion INSTILL 4 DROPS INTO AFFECTED EAR(S) TWICE DAILY FOR 7 DAYS active Not Available Not Available No t Available rosuvastati n 10 mg tablet TK [...] Not Available Not Available No t Available Plavix 75 mg daily 11/05 completed Not Available Not Available Not Available sodium chloride 1,000 mg soluble tablet TAKE 1 TABLET BY MOUTH TWICE DAILY active Not Available Not Available No t Available Symbicort 160 mcg-4.5 mcg/actuati on HFA [...] Updated DateTime 1 160.02 cm 37 kg/m2 38446.8 1 g 96 % 96 % 96 /min 100 mm[Hg] 60 mm[Hg] Benton Jimenez MA [facility] 1 16:39:16 Date Recorded Body height Provider Name an d Address Organization Details Last Updated DateTime 10/16/2021 160.02 cm Benton Jimenez MA [facility] 10/16 16:34:16 Date Recorded Body height Respiratory rate Body mass index (BMI) Body weight Body temperature Pain severity - 0-10 verbal numeric rating [Score] - Reported Heart rate Systolic blood pressure Diastolic blood pressure Provider Name and Address Organization Details Last Updated DateTime 2 160.02 cm 18 /min 35.3 kg/m2 55582.6 g 97.2 [degF] 8 104 /min 129 mm[Hg] 100 mm[Hg] Trudy Cano [facility] 2 12:33:07 Date Recorded Body height Body mass index (BMI) Body weight Oxygen saturation Oxygen saturation in Arterial blood by Pulse oximetry Heart rate Systolic blood pressure Diastolic blood pressure Provider Name and Address Organization Details Last Updated DateTime 4 160.02 cm 32.3 kg/m2 73264.6 1 g 95 % 95 % 61 /min 122 mm[Hg] 72 mm[Hg] Ambar Dee MA [facility] 4 09:53:26 Date Recorded Body height Oxygen saturation Oxygen saturation in Arterial blood by Pulse oximetry Heart rate Body mass index (BMI) Body weight Systolic blood pressure Diastolic blood pressure Provider Name and Address Organization Details Last Updated DateTime 5 160.02 cm 96 % 96 % 79 /min 32.2 kg/m2 41381.8 1 g 118 mm[Hg] 72 mm[Hg] Ambar Dee MA [facility] 5 11:20:52 Social History Question Answer Notes LastModified by Organizat ion Details LastModified Time Tobacco Smoking Status Current Every Day Smoker Trying to stop being using NiControl inhaler-hasn 't smoked in 3 wks. Benton Jimenez MA [facility], [facility] 10/16/2021 16:32:37 Do You Have An Advance [...] Date Of Your Most Recent Tobacco Screening? 11/30/2024 Information not available 11/30/2024 How Many Children Do You Have? 2 [...] What Date Was Tobacco Cessation Counseling Provided? 11/30/2024 Information not available 11/30/2024 How Many Years Have You Smoked Tobacco? [...] Response Coronary Artery Disease N Other N High Blood Pressure Y Atrial Fibrillation N Thyroid Problems N Kidney or Bladder Problems N GI Problems N Depression Y COPD Y Blood Clots N Skin Problems N Eating Disorder N Anemia N Heart Attack (SD) N Anxiety Disorder Y Diabetes Y Muscle, Joint, or Bone Problems Y Seizures/Epilepsy N Acid Reflux (GERD) Y Cancer Y Stroke Y Asthma Y Allergies Y ADHD N Substance Abuse N High Cholesterol Y Hepatitis N Liver Disease N Schizophrenia N Headaches N Heart Failure N Osteoporosis Y Gynecological HistoryNo gynecological history recorded. Obstetrics History GPAL:G 0 P 0 0 0 0 Immunizations Vaccine Type Date Status Note Provider Nam e and Address Organization Details Recorded Time COVID-19, mRNA, LNP-S, PF, 30 mcg/0.3 mL dose 1 completed Sonya Reese [place], [place] [facility] 05/01/2021 10:04:30 COVID-19, mRNA, LNP-S, PF, 30 mcg/0.3 mL dose 1 completed Sonya Re[place], [place] [facility] 05/01/2021 10:05:05 Influenza, split virus, quadrivalent, PF 9 completed Not Available [facility] 12/02/2019 02:38:45 Influenza, split virus, quadrivalent, preservative 0 completed Linda [place], [place] [facility] 08/28/2020 11:13:06 Past Encounters Encounter ID Performer Location Encounter Start Date Encounter Closed Date Diagnosis/Indication Diagnosis SNOMED-CT Code Diagnosis ICD10 Code Diagnosis Note [id number] Neva Holden MD [facility] [address] [place] [address] 08/02/2019 14:19:32 08/03/2019 10:15:47 Diabetes mellitus 16955271 E11.9 a1c 7.0. Sees [facility] for diabetic eye exam. Sees python consultant for her well-cared for feet. Peripheral arterial insufficiency 4569959348 13336 I73.9 2 stents in leg, carotid endarterec rikki, and iliac stents. Bilateral knee pain 1187 827822 5628791 M25.[address] Dash Pain in ri ght hip joint 2369322375 27666 M25.551 Disorder o f vocal cord 61307816 J38.3 Screening mammography 24 289630 Z12.31 Tobacco user 566658119 Z 72.0 Adult heal th examination 224633332 Z00.00 Urinary incontinence 165 839401 R32 Mixed hyperlipidemia 267 083836 E78.2 Essential hypertension 99631155 I10 takes losartan, amlodipine , metoprolol [id number] Neva Holden MD [facility] [address] [place] [address] 09/22/2019 10:09:29 09/26/2019 14:40:41 Active or passive immunization 911298559 Z23 risks and benefits of immunizati ons reviewed, and patient agreed to receive shot Screening mammography 24 184521 Z12.31 Trying to give up smoking 849197420 Z72.0 Bilateral knee pain 1187 640881 7042966 M25.[address] Dash Depression screening 171 834429 Z13.31 patient does not appear to be significan tly depressed. [id number] JOSE BLANCO [facility] [address] [place] [address] 11/17/2019 14:34:43 11/20/2019 11:23:14 Acute otitis media 1318959 H66.92 Patient presents with lear pain. On exam patient has right ear infection. Left ear has tube in place. She is allergic to penicillin - rash all over and Zpack made her have nausea. Due to this rash I will avoid beta-lacta ms and do doxycyclin e. Patient is afebrile today, BP 120,82, WNL. [id number] Neva Holden MD [facility] [address] [place] [address] 12/25/2019 09:55:14 12/26/2019 09:25:01 Hyperlipidemia screening 254275793 Z13.220 History of tympanostomy 100370084 Z93.8 Essential hypertension 20939774 I10 takes losartan, amlodipine , metoprolol Vitamin D deficiency 347 47650 E55.9 Tobacco user 571530649 Z 72.0 Bilateral knee pain 1187 876732 7495110 M25.[address] Dash Chronic low back pain 27 6540485 M54.5 Type 2 patrick betes mellitus 43597044 E11.59 [id number] Neva Holden MD [facility] [address] [place] [address] 01/19/2020 16:02:06 01/22/2020 12:01:20 Chronic obstructive pulmonary disease 63794390 J44.9 Bilateral cataracts 9572 2004 H26.9 Bilateral knee pain 1187 489785 4206896 M25.[address] Dash Essential hypertension 37544450 I10 takes losartan, amlodipine , metoprolol . Patient advised to limit salt and caffeine intake to maintain good blood pressure. [id number] Matti Paris MD [facility] [address] [place] [address] 02/01/2020 13:53:27 02/08/2020 16:34:26 Acute sinusitis 38097818 J01.90 Dysfunctio n of eustachian tube 16912645 H69.93 [id number] Neva Holden MD [facility] [address] [place] [address] 02/14/2020 09:15:25 02/16/2020 10:06:53 Fracture of rib 93830597 S22.31XD Bilateral knee pain 1187 429860 6042814 M25.[address] Dahs Moderate r ecurrent major depression 80998585 F33.1 Patient is already taking alprazolam , fluoxetine , and trazodone. [id number] Neva Holden MD [facility] [address] [place] [address] 04/19/2020 09:52:32 04/22/2020 17:32:47 Otitis media 51183720 H66.93 will use cipro eye drops in the ears (covered by insurance, ear drops are not, strength is comparable , eye drops not irritating ) and see what Dr. Paris says. Type 2 patrick betes mellitus 81145437 E11.[address] Cueto for her diabetic eye exams at [facility]. She has poor peripheral circulatio n, no detectable pulses in her feet, has had an KENZIE and was supposed to have further testing but Hardy did not do it. She would like a vascular workup at [facility] for PAD. Renal diso rder due to type 2 diabetes mellitus 733257295 E11.21 [id number] Neva Holden MD [facility] [address] [place] [address] 06/05/2020 16:02:08 06/10/2020 09:31:12 Acute low back pain 807721058 M54.5 patient encouraged to quit smoking since smokers' backs deteriorat e more rapidly and neurosurge ons require patients to refrain from smoking in order to heal better. [id number] Neva Holden MD [facility] [address] [place] [address] 08/28/2020 10:23:47 09/02/2020 09:17:04 Administration of influenza vaccine 58878103 Z23 Hemorrhoids 87505450 K64 .9 Lumbago with sciatica 20 9771052 M54.40 Decreased vascular flow 45561361 R94.39 scheduled for vascular surgery in near future on the left leg. Acute low back pain 2788 38632 M54.5 patient encouraged to quit smoking since smokers' backs deteriorat e more rapidly and neurosurge ons require patients to refrain from smoking in order to heal better. Screening mammography 24 094234 Z12.31 Moderate p ersistent asthma 476555319 J45.40 [id number] Neva Holden MD [facility] [address] [place] [address] 11/22/2020 08:40:06 12/03/2020 07:50:58 Diarrhea 75126821 R19.7 Right lowe r quadrant pain 591155408 R10.31 patient advised to go to the emergency room. Acute sinusitis 35941698 J01.90 Coronary arteriosclerosis 76160567 I25.10 Lumbago with sciatica 20 4601777 M54.40 Mixed anxi ety and depressive disorder 673990642 F41.8 positive screening; taking fluoxetine and alprazolam . [id number] Neva Holden MD [facility] [address] [place] [address] 02/20/2021 10:53:00 02/21/2021 00:41:20 Bilateral knee pain 1362174488 5386262 M25.[address] Fowler Mixed hyperlipidemia 267 748530 E78.2 does not tolerate crestor or pravastati n. Essential hypertension 03706913 I10 takes losartan, metoprolol . Patient advised to limit salt and caffeine intake to maintain good blood pressure. Type 2 patrick betes mellitus 87252652 E11.[address] Cueto for her diabetic eye exams at [facility]. [id number] Neva Holden MD [facility] [address] [place] [address] 05/14/2021 10:06:50 05/15/2021 12:38:02 Type 2 diabetes mellitus 27842461 E11.[address] Cueto for her diabetic eye exams at [facility]. will make appt with him. Adult [facility] th examination 250335647 Z00.00 Mild inter mittent asthma 515993429 J45.20 Lumbago with sciatica 20 0392564 M54.40 Essential hypertension 76026633 I10 takes losartan, but has stopped metoprolol . Patient advised to limit salt and caffeine intake to maintain good blood pressure. Acute sinusitis 60973242 J01.90 Cigarette smoker 5616307 7 F17.210 Depression screening 171 118756 Z13.31 patient does not appear to be significan tly depressed. [id number] Brittanie Baires [facility] [address] [place] [address] 06/09/2021 09:41:31 06/10/2021 08:00:07 Adult health examination 386476418 Z00.00 Long-term drug therapy 079477345 Z79.459 [id number] Hollis Dash PA-C [facility] [address] [place] [address] 06/25/2021 08:00:32 06/30/2021 06:20:50 Asthma 597806127 J45.909 Chronic ob structive pulmonary disease 08597142 J44.9 Peripheral vascular disease 070294929 I73.9 Tick bite 51874772 W57.X XXA Essential hypertension 46323753 I10 Lumbago with sciatica 20 6497763 M54.40 Diabetes mellitus 291370 09 E11.9 [id number] JOSE BLANCO [facility] [address] [place] [address] 07/09/2021 08:12:23 07/14/2021 10:04:06 Chronic obstructive pulmonary disease 48042474 J44.9 Patient with COPD exacerbati on. recently finished 50mg prednsione x 5 days but continues wheezing. Cannot take zyrtec due to bombs going off in my stomach ? Takes symbicort but states flovent used to help much more. Recent LDCT scan shows no nodules. did show chronic granulomat ous dz and some opacity probably from early pneumonia. Patient treated with doxy and is on last dose today. Acute exac erbation of chronic obstructive pulmonary disease 564848405 J44.1 Patient has wheezing. finished with steroid. finished 50mg prednsione x 5 days but continues wheezing. Cannot take zyrtec due to bombs going off in my stomach ? Xray in hospital showed early pneumonia. She is on last day of doxyciclin e. states she has allergy to amoxicilli n and zpak. - Xray to asses pneumonia- steroid pack due to continues wheezing, monitor BP and glucose (states sugars have been <170)- Pulmonolog ist Seasonal a llergic rhinitis 426309861 J30.2 refill [id number] JOSE BLANCO [facility] [address] [place] [address] 07/09/2021 09:54:19 07/09/2021 15:29:58 [id number] Jasson Dawn MD [facility] [address] [place] [address] 09/15/2021 08:35:55 09/17/2021 10:35:36 Chronic obstructive pulmonary disease 26911185 J44.9 advised smoking cessation. .. Diabetes mellitus 907205 09 E11.9 pod seen last week and eye appt this week... labs Essential hypertension 20875892 I10 meds and follow up... Hyperlipidemia 40203889 E78.5 on Zetia per cardiology ... Osteoarthritis 455558911 M19.90 meds and follow up... refill and refer to pain management if needed Obesity 913372916 E66.9 diet and exercise Peripheral vascular disease 587217909 I73.9 smoking cessation and plavix/exe rcise.. Screening mammography 24 983751 Z12.31 order Chronic otitis media 211 03965 H66.90 refer [id number] JOSE PARDO [facility] [address] [place] [address] 09/25/2021 16:19:42 09/26/2021 09:58:03 Viral upper respiratory tract infection [id number] J06.9 wet cough, congestion , rhinorrhea , sinus tenderness , and headaches for the past 2 wkstried neti pot, dayquil, benadryl, and mucinex w/o reliefNo sick/COVID contactsPt is not vaccinated Denies fever, chills, chest pain, SOB, n/v/d, abd pain, dizziness, or weaknessPE x- diminished air movement, decreased breath sounds, rhonchi to left upper lobept had recent course of prednisone taper for URI given by pt's Orthoh/o COPD, has appt w/ [facility] in 1 moincrease fluid intake and resttrial NSAIDs for headache, c/w OTC mucinex and neti pottrial doxycyclin e and prednisone 20 mg x1 wk Bilateral hearing loss 37595912 H91.93 h/o chronic hearing lossperfor ated R TM, T tube to L TM x9 yrssaw ENT yesterdayn eeds referral for hearing test [id number] JOSE PARDO [facility] [address] [place] [address] 10/16/2021 08:08:57 10/20/2021 10:45:33 Viral upper respiratory tract infection [id number] J06.9 10/17/21: cough, sore throat, nasal congestion , chest congestion , and fatigue x1 wkniece with similar sxtaking OTC mucinex, dayquil, nyquil w/o reliefpt seen in office previously and tx with abx- states that abx did not helpdiscus sed w/ pt bacterial vs viral URI, most likely viral due to no relief with abxpt is not vaccinated - offered COVID testing, pt agreedc/w OTC medication s, increase fluid intake and restno antibiotic s at this timef/u with any new or worsening sxof note: pt sees ENT for chronic TM perforatio n bilaterall y and nasal septum deviation 09/25/21:w et cough, congestion , rhinorrhea , sinus tenderness , and headaches for the past 2 wkstried neti pot, dayquil, benadryl, and mucinex w/o reliefNo sick/COVID contactsPt is not vaccinated Denies fever, chills, chest pain, SOB, n/v/d, abd pain, dizziness, or weaknessPE x- diminished air movement, decreased breath sounds, rhonchi to left upper lobept had recent course of prednisone taper for URI given by pt's Orthoh/o COPD, has appt w/ [facility] in 1 moincrease fluid intake and resttrial NSAIDs for headache, c/w OTC mucinex and neti pottrial doxycyclin e and prednisone 20 mg x1 wk Viral syndrome [id number] B34.9 [id number] Matti Paris MD [facility] [address] [place] [address] 08/04/2022 12:26:19 08/05/2022 11:36:13 Acute sinusitis 42862267 J01.90 Acute otitis media 09751 03 H66.92 [id number] Matti Balderas MD [facility] [address] [address] 10/05/2024 09:37:24 10/06/2024 14:35:39 Chronic obstructive pulmonary disease 32180894 J44.9 conditon chorin cand at goal continue the albuterol inhaler and neb Diabetes mellitus 712958 09 E11.9 conditon chroic nad at ogal continue the metformin Essential hypertension 44731185 I10 conditon chronic and at goal continue hte losartin Malignant neoplasm of urinary bladder 284030409 C67.9 condiotn aucte getting bcg adn follow wi urology Atheroscle rosis of coronary artery without angina pectoris [id number] 41623 I25.10 conditon chronic and at goal with afib. continue wtih the aguilar and the eliquis Hypercholesterolemia 136 39220 E78.00 conditon chronic and at goal continue the zetia and repatha Smoker 75831554 F17.200 conditon chroinc and not at goal wean 1 cig per week. Osteoarthritis 327560516 M19.90 [id number] Matti Balderas MD [facility] [place] [facility] [address] [facility] [address] [facility] [place] [address] 11/30/2024 10:01:01 12/01/2024 12:36:45 Pneumonia caused by SARS-CoV-2 [id number] 82354623 J12.82 conditoin acute and improving order cxr at [facility] Nausea 474831954 R11.0 conditoin acute due to covid. ordedr promehtajohn ne for nasuea Atheroscle rosis of coronary artery without angina pectoris 5530260181 17692 I25.10 conditon chronic and at goal with afib. continue wtih the aguilar and the eliquis Diabetes mellitus 216933 09 E11.9 conditon chroic nad at ogal continue the metformin Hypotensive episode 6776 3001 I95.9 conditon acute continue hte midodrine Chronic ob structive pulmonary disease 43601843 J44.9 conditon chorin cand at goal continue the albuterol inhaler and neb Hypercholesterolemia 136 73160 E78.00 conditon chronic and at goal continue the zetia and repatha Smoker 79357790 F17.200 conditon chroinc and not at goal wean 1 cig per week. Degenerati on of lumbar intervertebral disc 93170067 M51.369 conditon choinc and not at goal order tramadol 50 mg tid and refer to [facility] Concerns Section Related Observation LastModified by Organization Detai ls LastModified Time None Recorded Concern Status LastModified by Organization Details LastModified Time None Recorded Advance Directives Directive N: Payers Encounter Date Sequence Insurance Name Policy Number Policy Larsen Covered Member ID Larsen Member ID Guarantor Name 09/25/2021 1 [facility] ON OR AFTER 05/15/21 (MEDICAID REPLACEMENT - HMO) Rody Zaidi [id number] Rody Zaidi 10/16/2021 1 [facility] ON OR AFTER 05/15/21 (MEDICAID REPLACEMENT - HMO) Rody Gelso [id number] Rody Gelso 08/04/2022 1 [facility] ON OR AFTER 05/15/21 (MEDICAID REPLACEMENT - HMO) Rody Gelso [id number] Rody Gelso 10/05/2024 1 [facility] ON OR AFTER 21 (MEDICAID REPLACEMENT - HMO) Rody Gelso [id number] Rody Gelso 11/30/2024 1 [facility] ON OR AFTER 05/15/21 (MEDICAID REPLACEMENT - HMO) Rody Gelso [id number] Rody Gelso Notes Date Note Type Note Provider Name and Address Organization Details Recorded Time 09/25/2021 text/html Pt presents with wet cough, [...] allergic to. JOSE PARDO Attn: Accounting[address] [place], [address], [facility] 09/26/2021 10:05:53 10/16/2021 [...] or headaches. JOSE PARDO Attn: Accounting[address] [place], [address], [facility] 10/17/2021 10:08:39 08/04/2022 [...] almost 10 years ago. Matti Paris MD [address] [facility], [place], [address], [facility] 08/04/2022 12:40:41 10/05/2024 text/html presents to the office for initial evaluation has bladder cancer and is being treated by urology has copd and dm the htn is under control is a smoker the gerd is under control has afib and sees dr aguilar elevated chol Matti Balderas MD Attn: Accounting[address] [place], [address], [facility] 10/05/2024 17:20:45 11/30/2024 text/html states that she was admitted for covid and covid pneumnia is on the midodrine for hte low blood pressure. hte cad is under contrl the copd is under contrl the chol is treated the bs are under control continues to smoke. has the nausea is not under control Matti Balderas MD Attn: Accounting[address] [place], [address], [facility] 11/30/2024 19:39:51 OBGyn Episode No OBEpisode recorded.
--- OUTSIDE RECORDS SUMMARY | 2024-12-24 12:53 | XMS_ITS | Encounter Summary ---
Author Organization [facility] Address [address] [place] [address] Care Team Providers Care Ball Points Inspector Name Role Phone Deisi Andrews MD Primary Care Provider [phone] Matti Balderas MD Primary Care Provider [phone] Reason for Visit * Reason Onset Date Comments Med Question 09/13/2024 Appointment 09/13/2024 Encounter Details Date Type Department Care Team (Late st Contact Info) Description 09/13/2024 Telephone [facility] - Centralized Scheduling [address] [place] [address] Jose Oliver MD [address] [place] [address] Med Question; Appointment Social History [...] st Contact Info) Description 01/19/2025 11:30 AM GENERAL MATCHER Procedure visit [facility] - Urology [address] [place] [address] [address] [place] [address] Jose Oliver MD [address] [place] [address] documented as of this encounter Goals Goal [...] on filedocumented in this encounter Care Teams Ball Points Inspector Relationship Specialty Start Date End Date Deisi Andrews MD [address] [place] [address] PCP - General Family Medicine 05/26/23 10/26/24 Matti Balderas MD [address] [place] [address] PCP - General Family Medicine 10/27/24 documented as of this encounter
--- OUTSIDE RECORDS SUMMARY | 2024-12-24 12:53 | XMS_ITS | Clinical Summary ---
Author Organization [facility] Address [address] [place] [address] Care Team Providers Care Leader Assembler Name Role Phone Matti Balderas MD Primary Care Provider [phone] Source Comments [facility],non-owned Affiliates and Associated Physician Practices is amultiple site organization consisting of ambulatory clinics and hospital sitesin [place], [place], [place] and [place]. This disclosure is being madepursuant to the Care Everywhere program and may not contain all information available regarding this patient. Last updated 18.[facility] Allergies Active Allergy Reactions Criticality Noted Date [...] meal 7 Active vitamin D, ergocalciferol, (DRISDOL) 17963 UNITS capsule Take 1 (one) capsule by [...] Arechiga (recurrent major depressive disorder) in remission ([facility]) Apply 1 (one) patch to skin once daily 30 patch 2 4 Active nicotine (Nicotrol) 10 MG inhalerIndications: MDD (recurrent major depressive disorder) in remission ([facility]) Inhale 10 mg by mouth as needed [...] alignant neoplasm of urinary bladder, unspecified site ([facility]),Bladder spasms,Urinary frequency Take 1 (one) tablet by [...] Problem Noted Date Diagnosed Date CAD in cahuilla artery 10/24/2020 MDD (recurrent major depressive disorder) [...] Department Care Team Description 12/19/2024 Travel 10/27/2024 1:30 PM COLOR RECEIVER Procedure visit [facility] - Urology [address] [place] [address] [address] [place] [address] Jose Oliver MD Malignant neoplasm of urinary bladder, unspecified site (HCC) 10/27/2024 Travel from Last 3 Months Immunizations Name Administration Dates Next Due INFLUENZA VACCINE, TRIV. (AF LURIA, FLUZONE TRIVALENT; 6MO+) (IIV3) 12/16/2015 Covid [employer] primary monoval ent 12+ yr 0.3mL Purple [...] Comments Blood Pressure 142/84 12/19/2024 9:31 AM COLOR RECEIVER Pulse 88 12/19/2024 9:31 AM COLOR RECEIVER Temperature 36.5 C (97.7 F) 12/19/2024 9:31 AM COLOR RECEIVER Respiratory Rate 18 10/27/2024 2:11 PM COLOR RECEIVER Oxygen Saturation 96% 12/19/2024 9:31 AM COLOR RECEIVER Inhaled Oxygen Concentration 21% 06/21/2024 8 :20 AM CDT Weight 77.6 kg (171 lb) 12/19/2024 9:31 AM COLOR RECEIVER Height 160 cm (5' 3 ) 10/27/2024 2:11 PM COLOR RECEIVER Body Mass Index 30.29 10/27/2024 2:11 PM COLOR RECEIVER Plan of Treatment Upcoming Encounters Date Type Department Care Team (Late st Contact Info) Description 01/19/2025 11:30 AM COLOR RECEIVER Procedure visit [facility] - Urology [address] [place] [address] [address] [place] [address] Jose Oliver MD [address] [place] [address] Health Maintenance Due Date Last Done Comments COLOGUARD (AGES 45-75) - COLON CA SCREENING [address] COLONOGRAPHY - COLON CA SCREENING 1961 FIT - COLON CA SCREENING 1961 FLEX SIG - COLON CA SCREENING 1961 MAMMOGRAM 1961 Opioid Medication Agreement - Annual 1961 HIV SCREENING 1976 HEPATITIS C SCREENING 12/25/1979 DIABETES-STATIN 2001 LUNG CANCER SCREENING 2011 ZOSTER VACCINE (1 of 2) 2011 DIABETES-FOOT EXAM WITH MONOFILAMENT 01/11/2019 PNEUMOCOCCAL VACCINE 50+ (3 of 3 - PCV20 or PCV21) 10/21/2021 10/21/2016, 07/23/2016, 12/16/2015 Respiratory Syncytial Virus (RSV) Vaccine Pt: or over 60 yrs (1 - Risk 60-74 years 1-dose series) 2021 DIABETES RETINOPATHY SCREENING 12/02/2023 12/02/2021, 12/02/2021, 06/12/2020, Additional history exists DIABETES-HGB A1C 05/22/2024 11/22/2023, , 05/02/2020 COVID-19 VACCINE ( season) 2024 03/13/2021, 02/17/2021, 02/06/2021 INFLUENZA VACCINE (#1) 2024 , 01/05/2022, 08/28/2020, Additional history exists DIABETES - URINE PROTEIN SCREENING 11/15/2024 DIABETES-SERUM CREATININE 06/28/20252023, 11/22/2023, 10/22/2023, Additional history exists PAP SMEAR 07/06/2025 07/06/2022, 10/15, 10/29/2021, Additional history exists COLONOSCOPY - COLON CA SCREENING 02/13/2029 02/13/2019 (Done Outside Per Report) Colorectal Cancer Screening 02/13/2029 DTAP/TDAP/TD VACCINES (3 - Td or Tdap) 05/27/2031 05/27/2021, 01/31/2019 DEPRESSION SCREENING Completed 12/19/2024, 01/07/2024, 08/17/2023, Additional history exists HEPATITIS B VACCINE Aged Out No longe r eligible based on patient's age to complete this topic HIB VACCINE Aged Out No longer eligi ble based on patient's age to complete this topic HPV VACCINE Aged Out No longer eligi ble based on patient's age to complete this topic MENINGOCOCCAL (Group B) VACCINE Aged Out No longer eligible based on [...] last dose Medical Devices Implanted Type Area Carpentry Supervisor Device Identifier Shelf Expiration Date Model / Serial / Lot Stent Trchbr 10mm 7fr 38mm 80cm Cvr Cath Implanted:Qty: 1 on 09/04/2020 by Jose A Clark MD at [facility] N/A: Abdomen Getinge [employer] 04/05/2023 [id number] / / [id number] Stent Trchbr 8mm 7fr 38mm 80cm Cvr Cath Implanted:Qty: 1 on 09/04/2020 by Jose A Clark MD at [facility] N/A: Abdomen Getinge [employer] 05/22/2023 [id number] / / [id number] Procedures Procedure Name Priority Date/Time Associated Diagnosis Comments URINALYSIS AUTO - POINT OF CARE (AMB) [facility] Routine 10/27/2024 2:13 PM COLOR RECEIVER Malignant neoplasm of urinary bladder, unspecified site (HCC) BASIC METABOLIC PANEL (CALCIUM TOTAL) STAT 06/28/2024 3:17 PM CDT HEMOGLOBIN A1C Routine 11/22/2023 10:36 AM COLOR RECEIVER Pre-op exam from Last 3 Months or Most Recently Relevant to Health Maintenance Results * URINALYSIS AUTO - POINT OF CARE (AMB) [facility] (10/27/2024 2:13 PM COLOR RECEIVER) Glucose UA neg [facility] [address] Bilirubin UA POCT neg [facility] [address] Ketones UA POCT neg [facility] [address] Specific [place] UA 1.[address] [facility] [address] Blood Urine POCT neg [facility] [address] pH UA 5.5 [facility] [address] Protein UA neg [facility] [address] Urobilinogen UA 0.2 [facility] [address] Nitrite UA neg [facility] [address] WBC UA neg [facility] [address] Urine URINE / Unknown 10/27/2024 2 :13 PM COLOR RECEIVER Jose Oliver MD LAB - POINT OF CAR E ORDERABLES [facility] [address] [place] [address], [facility] [phone] * BASIC METABOLIC PANEL (CALCIUM TOTAL) (06/28/2024 3:17 PM CDT) BUN 15 7 - 26 mg/dL 06/28/2024 3:51 PM [facility] Creatinine 0.69 0.56 - 0.96 mg/dL 06/28/2024 3:51 PM [facility] Sodium 138 136 - 145 mmol/L 06/28/2024 3:51 PM [facility] Potassium 4.0 3.5 - 4.5 mmol/L 06/28/2024 3:51 PM [facility] Chloride 103 98 - 107 mmol/L 06/28/2024 3:51 PM [facility] CO2 26 22 - 29 mmol/L 06/28/2024 3:51 PM [facility] Glucose 102 70 - 115 mg/dL 06/28/2024 3:51 PM [facility] Calcium 9.4 8.4 - 10.2 mg/dL 06/28/2024 3:51 PM [facility] Anion Gap 9 6 - 16 06/28/2024 3:51 PM [facility] BUN/Creatinine Ratio 22 7 - 23 06/28/2024 3:51 PM [facility] Osmolality Calculated 287 275 - 295 mOsm/kg 06/28/2024 3:51 PM [facility] eGFR by CKD-EPI >90 >=90 mL/min/1.7 3 m2 06/28/2024 3:51 PM CDT [facility] Blood BLOOD SPECIMEN / Unknown Venipuncture / Unknown 06/28/2024 3:17 PM CDT 06/28/2024 3:26 PM CDT Martir Choi MD LAB - CHEMISTRY BASSAM CONTRERAS [facility] [address] [place] [address], [place] [phone] * (ABNORMAL) HEMOGLOBIN A1C [IN-HOUSE TEST] (11/22/2023 10:36 AM COLOR RECEIVER) Hemoglobin A1c 6.4(H) <=5.6 % 11/22/2023 12:05 PM [facility] Estimated Average Glucose 137 mg/dL 11/22/2023 12:05 PM [facility] Comment: HbA1c Interpretation: Normal : < 5.7% Pre-diabetes: 5.7-6.4% Diabetes: Equal to or greater than 6.5% Test results diagnostic of diabetes should be repeated for confirmation. Treatment target values recommended by ADA and other clinical organizations should be used to evaluate metabolic control in patients. Reference: [place] [employer] Association, Standards of Care in Diabetes -2020 In patients 70 years and older consider HbA1c target range of 7.0-7.5% (Reference: Montez Rosas, et al. JAMDA. 2012) The Sebia assay for the measurement of HbA1c is a National Glycohemoglobin Standardization Program (NGSP) certified method. Blood BLOOD SPECIMEN WITH EDTA / Unknown Lab Venipuncture / Unknown 11/22/2023 10:36 AM COLOR RECEIVER 11/22/2023 10:42 AM COLOR RECEIVER Jasmin Moore PERINATAL TECH-DIRECTOR FINANCIAL SERVICES LAB - CHEMISTRY ORDERABLES [facility] [address] [place] [address], [place] [phone] from Last 3 Months or Most Recently Relevant to Health Maintenance Advance Directives * Full Code (Latest Code Status on File) Date Activated Date Inactivated Comments 10/24/2020 10:10 AM 10/24/2020 6:00 PM Care Teams Leader Assembler Relationship Specialty Start Date End Date Matti Balderas MD [address] [place] [address] PCP - General Family Medicine 10/27/24
--- OUTSIDE RECORDS SUMMARY | 2024-12-24 12:54 | XMS_ITS | Data Portability ---
Author Organization [place] [employer], Main Office Address [address] [place] [address] Care Team Providers Care Corporate Development Officer Name Role Phone DARLEEN MONTOYA ZACHARY Primary Care Provider [phone] DARLEEN MONTOYA ZACHARY Referring Provider [phone] Assessment Encounter Date Assessment Date Assessment LastModified [...] glycohemogl obin, total, blood 2023 024 [email or web address] [facility] (Lab), [address] [place], [address], 10:07:37 CMP, serum or plasma 2023 [facility] (Lab), [address] [place], [address], 21:36:40 lipid panel, serum [address] (Lab), [address] [place], [address], 4 10:07:37 hepatic function panel, serum [address] (Lab), [address] [place], [address], 4 10:07:37 TSH, serum or plasma 2023 [facility] (Lab), [address] [place], [address], 4 21:36:40 vitamin D, 25-hydroxy, total, serum [address] (Lab), [address] [place], [address], 10:07:37 CBC w/ auto diff 2023 [facility] (Lab), [address] [place], [address], 21:36:40 Referral None recorded. Procedures injection/a spiration joint/bursa (PROC) 2023 [email or web address] In-Office Order, Internal Use Only DO Not Attach Compendium DO Not Attach Compendium, Do Not Delete/merge, [address] 11:41:26 Surgeries None recorded. Imaging MAMMO, screening, digital, bilateral - Please call pt to schedule 2023 [email or web address] [facility] (One Call Scheduling), [address] [facility], [place], [address], 4 09:02:29 Medication Orders ketorolac 60 mg/2 mL intramuscul ar solution 2023 024 [email or web address] Not available 4 15:37:49 fluticasone propionate 50 mcg/actuati on nasal spray,suspe nsion 2023 024 [place] [facility], [address] , [place], [place], [id number], 4 11:10:22 montelukast 10 mg tablet 2023 024 [place] [facility], [address] [facility], [place], [place], [id number], 4 11:10:22 ketorolac 30 mg/mL (1 mL) injection solution 2023 024 [id number] Not available 5 05:16:02 cyclobenzap rine 10 mg tablet 2023 024 [place] [facility] #65977, [address] [facility], [place], [place], [id number], 4 10:56:44 Symbicort 160 mcg-4.5 mcg/actuati on HFA aerosol inhaler 2023 024 [facility], [address], [place], [place], [id number], 4 10:56:45 bupivacaine HCl 0.5 % (5 mg/mL) injection solution 2023 024 [email or web address] [facility], [address] , [place], [place], [id number], 4 12:16:23 Kenalog 10 mg/mL suspension for injection 2023 024 [id number] [facility] #73686, [address] [facility], [place], [place], [id number], 5 05:16:03 prednisone 10 mg tablets in a dose pack 2023 024 [email or web address] [facility] #06767, [address] [facility], [place], [place], [id number], 4 12:16:23 Patient TargetsNo targets recorded. Patient Instructions Encounter Date Encounter Id Patient Instructions Last Modified By Organization Details Last Modified Time 09/29/2024 [id number] viscosupplementa tion treatment* Not available 10/02/2024 11:56:29 Reason for Referral None Reported. Results Created Date Observation Date Name Description Value Unit Range Abnormal Flag Note LastModifiedBy Organization Detail LastModifiedTime 06/05/20 24 XR, knee No observ ation record ed. [email or web address] [facility] [place] [address], [place], [address], 06/05/2024 11:59:04 06/05/20 24 XR, hip + pelvi s, unila teral No observ ation record ed. [email or web address] [facility] [place] [address] [facility] [address], [place], [address], 06/05/2024 12:00:08 06/22/20 24 06/22/2024 CT, brain , w/o contr ast No observ ation record ed. [address], [place], [address], 06/22/2024 17:50:10 06/22/20 24 06/22/2024 XR, chest , 1 view No observ ation record ed. [address] [facility] [address], [place], [address], 06/22/2024 17:50:25 06/28/20 24 06/28/2024 CT, abdom en + pelvi s, w/ contr ast No observ ation record ed. [email or web address] [facility] [address], [place], [address], 07/12/2024 14:20:43 09/13/20 24 09/13/2024 XR, hand, 2 view No observ ation record ed. [email or web address] [facility] [address], [place], [address], 09/13/2024 16:59:37 Result Notes None recorded. Problems Name Problem SNOMED Code Status Onset Date Resolution Date Notes Provider Name and Address Organization Details Recorded Time Neoplasm of urinary bladder 629940291 Active 2021 Not Available [facility] 4 07:30:46 Hyperchole sterolemia 35776946 Active 2016 [facility] Available [facility] 4 07:30:46 Chronic obstructiv e pulmonary disease 44441082 Active 2016 Not Available [facility] 4 07:30:46 Malignant neoplasm of lateral wall of urinary bladder 726326208 Active 2021 Not Available [facility] 4 07:30:46 Cobalamin deficiency 219826950 Active 2022 Not Available [facility] 4 07:30:46 Asthma 817667311 Active 2016 Not Available [facility] 4 07:30:46 Cerebrovas cular accident 712047362 Active 2016 Not Available [facility] 4 07:30:46 Osteoarthr itis of knee 799947474 Active Not Available [facility] 4 07:30:46 Injury of ribs 069155593 Active 2018 Not Available [facility] 4 07:30:46 Enthesopat hy of hip region 00869439 Active Not Available [facility] 4 07:30:46 Pain in left foot 0760891426619 07 Active 2020 Not Available [facility] 4 07:30:46 Depressive disorder 30589279 Active 2016 Not Available [facility] 4 07:30:46 Hypertensi ve disorder 08438000 Active 2016 Not Available [facility] 4 07:30:46 Osteoarthr itis 160129882 Active Not Available [facility] 4 07:30:46 Peripheral vascular disease 709729997 Active 2017 Not Available [facility] 4 07:30:47 Porokerato sis 230955607 Active 2020 Not Available [facility] 4 07:30:47 Obesity 043619837 Active 2016 Not Available [facility] 4 07:30:47 Tubular adenoma of colon 053653878 Active 2018 Not Available [facility] 4 07:30:47 Anxiety 39507161 Active 2016 Not Available [facility] 4 07:30:47 Chronic colitis 87978595 Active 2018 Not Available [facility] 4 07:30:47 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 843561804 Active 2018 Not Available [facility] 4 07:30:47 Diabetes mellitus 24440422 Active 2016 Not Available [facility] 4 07:30:47 Mass of vocal cord Active 2018 Not Available [facility] 4 07:30:47 Malignant neoplasm of urinary bladder 978821511 Active 2022 Not Available [facility] 4 07:30:47 Chronic back pain 518846027 Active 2022 Not Available [facility] 4 07:30:46 Cigarette smoker 34265591 Active 2022 Not Available [facility] 4 07:30:47 Diverticul itis 401846335 Active 2022 Not Available [facility] 4 07:30:46 Essential hypertensi on 71947205 Active 2022 Not Available [facility] 4 07:30:47 Abdominal pain 22640561 Active 2022 Not Available [facility] 4 07:30:46 Type 2 diabetes mellitus 77029859 Active 2022 Not Available [facility] 4 07:30:47 Bilateral osteoarthr itis of knees 8038320351656 07 Active 2022 Not Available [facility] 4 07:30:46 Pain in right hip joint 2393153836730 02 Active 2022 Not Available [facility] 4 07:30:46 Trochanter ic bursitis of right hip 6221105626631 00 Active 2022 Not Available [facility] 4 07:30:46 Dysuria 53992987 Active 2022 Not Available [facility] 4 07:30:47 Acute exacerbati on of chronic obstructiv e pulmonary disease 663634529 Active 2022 Not Available [facility] 4 07:30:46 Blood in urine 79904160 Active 2022 Not Available [facility] 4 07:30:46 Vaginitis 15638451 Active 2022 Not Available [facility] 4 07:30:46 Allergic rhinitis 59002703 Active 2022 Not Available [facility] 4 07:30:47 Pain of left wrist 1315236566144 02 Active 2022 Not Available [facility] 4 07:30:46 Pain of left elbow joint 8648137173005 9104 Active 2022 Not Available [facility] 4 07:30:46 Pain of left forearm 8969493004895 09 Active 2022 Not Available [facility] 4 07:30:46 Multiple joint pain 73118898 Active 2022 Not Available [facility] 4 07:30:46 Acute sinusitis 44577907 Active 2022 Not Available [facility] 4 07:30:46 Dislocatio n of elbow joint 217894102 Active 2022 Not Available [facility] 4 07:30:47 Closed fracture of coronoid process of ulna 76923478 Active 2022 Not Available [facility] 4 07:30:47 Closed fracture of distal end of radius 24514578 Active 2022 Not Available [facility] 4 07:30:46 Dislocatio n of elbow joint 450053020 Active 2022 Not Available [facility] 4 07:30:47 Closed fracture of distal end of radius 32926241 Active 2022 Not Available [facility] 4 07:30:46 Increased frequency of urination 236833091 Active 2022 Not Available [facility] 4 07:30:46 Acute urinary tract infection 017598344 Active 2022 Not Available [facility] 4 07:30:47 Low back pain 507340527 Active 2022 Not Available [facility] 4 07:30:46 Vitamin D deficiency 37092830 Active 2022 Not Available [facility] 4 07:30:46 Hyperlipid emia 12287147 Active 2022 Not Available [facility] 4 07:30:47 Closed traumatic dislocatio n of elbow joint 3357927 Active 2022 Not Available [facility] 4 07:30:46 Nausea 860652321 Active 2022 Not Available [facility] 4 07:30:47 Heartburn 21131338 Active 2022 Not Available [facility] 4 07:30:46 Tachycardi a 5284736 Active 2022 Not Available [facility] 4 07:30:46 Cough 71162742 Active 2022 Not Available [facility] 4 07:30:47 Hypomagnes emia 466338886 Active 2023 Not Available [facility] 4 07:30:46 Eczema 50327068 Active 2023 Not Available [facility] 4 07:30:47 Pain in throat 147129300 Active 2023 Desii Andrews MD [address], [place] [address], [place], [address] , [facility] [email or web address] [facility] 4 13:19:57 Degenerati on of lumbar interverte bral disc 39169868 Active 2023 Deisi Andrews MD [address], [facility] [address], [place], [address] , [facility] [employer] [facility] [employer] [facility] 4 14:40:03 Abscess of sigmoid colon 603861328 Active 2023 Deisi Andrews MD [address], [facility] [address], [place], [address] , [facility] [email or web address] [facility] 4 14:40:16 Pain of bilateral knee joints 9508086777258 04 Active 2023 NATALYA Kumar, [facility] [email or web address] [facility] 4 12:11:51 Seasonal allergy 761861916 Active 2023 DARLEEN Carroll [address] [facility], [place] [address], [place], [address] , [facility] [email or web address] [facility] 4 11:05:30 Problem Notes None recorded. Procedures Surgical History Date Name Laterality Status Provider Name and Address Organization Details Recorded Time 10/01/20 colonoscopy completed Deisi Andrews MD [address] [facility], [place] [address], [place], [address], [facility] [email or web address] [facility] 01/04/2024 14:43:39 09/13/20 23 Transitional_Ca re_Management completed Beti Malloy RN [facility] [email or web address] [facility] 09/13/2023 11:04:05 01/22/20 23 Transitional_Ca re_Management completed Dorothy Viveros MA [facility] [employer] [facility] 01/21/2023 08:46:49 11/15/19 20 Unlisted px femur/knee completed Not Available [facility] 01/13/2023 13:51:47 Tubal Ligation completed Not Available [facility] 01/13/2023 13:51:47 section completed Not Available [facility] 01/13/2023 13:51:47 procedure on carotid body completed Not Available [facility] 01/13/2023 13:51:47 Ear Tube Placement completed Not Available [facility] 01/13/2023 13:51:47 Imaging Results Imaging Date Name Status LastModified by Organiz ation Details LastModified Time 06/05/2024 XR, knee completed [email or web address] [facility] [place] [address] [facility] [address], [place], [address], 06/05/2024 11:59:04 06/05/2024 XR, hip + pelvis, unilateral completed [email or web address] [facility] [place] [address] [facility] [address], [place], [address], 06/05/2024 12:00:08 06/22/2024 CT, brain, w/o contrast completed [address], [address], 06/22/2024 17:50:10 06/22/2024 XR, chest, 1 view completed [address] [address], [place], [address], 06/22/2024 17:50:25 06/28/2024 CT, abdomen + pelvis, w/ contrast completed [email or web address], [address], 07/12/2024 14:20:43 09/13/2024 XR, hand, 2 view completed [email or web address] [facility] [address], [place], [address], 09/13/2024 16:59:37 Procedure Notes None recorded. Medical Equipment None Reported. Allergies Allergen ID Allergen Name Allergen Category Reaction Reaction Severity Criticality Documentation Date Start Date Code Code System Note Provider Name and Address Organization Details Recorded Time 11731 wasp venoms environme nt angioedem a facial swelling moderate Not available Not available 01/13/2023 35685 RxNorm vernona todd amado s Masha Lozada RN [employer] null, [facility] [employer] [facility] 4 11:21:45 45375 simvastat in medicatio n other Not available Not available 01/13/2023 87367 RxNorm ALL SATIN S!!! can't walk Masha Lozada RN [employer] DELIV[employer] null, [facility] [employer] [facility] 4 11:21:21 13259 Risperdal medicatio n Not available Not available Not available 01/13/2023 90522 8 RxNorm face draws up Masha Lozada RN LABOR DELIVERY null, [facility] [employer] [facility] 4 11:20:46 18461 Product containin g penicilli n and antibioti c (product) medicatio n rash Not available Not available 01/13/2023 59845 05 SNOMED Deisi Andrews MD [address] [place] [address], [facility] [address], [place], [address] [place] [address] [employer] [facility] 3 12:22:06 01272 morphine medicatio n other Not available Not available 01/13/2023 7052 RxNorm Not Available [facility] 3 13:57:09 61509 Haldol medicatio n Not available Not available Not available 01/13/2023 99763 9 RxNorm face draws up Masha Lozada, RN LABOR DELIVERY null, [facility] [employer] [facility] 4 11:20:29 02715 Halcion medicatio n other Not available Not available 01/13/2023 92717 3 RxNorm face draws up Masha Lozada, RN LABOR DELIVERY null, [facility] [employer] [facility] 4 11:19:53 Medications Name Sig Start Date [...] TAKE 1 TABLET BY MOUTH TWICE DAILY 2024 active Not Available Not Available Not Avai lable cilostazo l 100 mg tablet TAKE 1 [...] mg by injectio n route. [address] [facility]: 0003-049 20 Not Available Not Available Not [...] Available Not Available No t Available cyanocoba karne (vit B-12) 1,000 mcg/mL injection solution Inject [...] 2 SPRAYS IN EACH NOSTRIL EVERY DAY 2024 active Not Available Not Available Not Avai lable doxycycli ne hyclate 100 mg tablet TAKE [...] administ ered by the provider 01/[address] [facility]: 0409-427 6-17 Not Available Not Available Not [...] %) injection solution in office [address] [facility] 59274-27 4- Not Available Not Available Not Available [...] Updated DateTime 4 157.48 cm 33.3 kg/m2 58337.8 1 g 97.7 [degF] 81 /min 97 % 97 % 148 mm[Hg] 94 mm[Hg] Yocasta Iniguez RN [facility] [employer] [facility] 4 10:24:45 Date Recorded Body height Body mass index (BMI) Body weight Body temperature Heart rate Oxygen saturation Oxygen saturation in Arterial blood by Pulse oximetry Systolic blood pressure Diastolic blood pressure Provider Name and Address Organization Details Last Updated DateTime 4 157.48 cm 33.3 kg/m2 45161.8 1 g 97.9 [degF] 80 /min 96 % 96 % 120 mm[Hg] 84 mm[Hg] Yocasta Iniguez RN [facility] [employer] [facility] 4 10:59:51 Date Recorded Body height Body mass index (BMI) Body weight Body temperature Heart rate Oxygen saturation Oxygen saturation in Arterial blood by Pulse oximetry Systolic blood pressure Diastolic blood pressure Provider Name and Address Organization Details Last Updated DateTime 4 157.48 cm 33.8 kg/m2 76712.5 9 g 96.4 [degF] 74 /min 95 % 95 % 118 mm[Hg] 80 mm[Hg] Beti Malloy RN [facility] [email or web address] [facility] 4 10:30:08 Date Recorded Body height Body mass index (BMI) Body weight Provider Name and Address Organization Details Last Updated DateTime 09/29/2024 160.02 cm 32.6 kg/m2 27263 g Masha Lozada [facility] [employer] [facility] 09/29/2024 11:39:48 Social History Question Answer Notes LastModified by Organizat ion Details LastModified Time Tobacco Smoking Status Current Every Day Smoker started age 16 Not Available [facility] 01/13/2023 13:51:45 What Is Your Level Of Alcohol Consumption? None [id number].84250 [id number] Information not available 01/13/2023 What Is Your Level Of Caffeine Consumption? Moderate MIGRATION.29564 [id number] Information not available 01/13/2023 In The 14 Days Before Symptom Onset, Have You Had Close Contact With A Laboratory-confir med COVID-19 While That Case Was Ill? No MIGRATION.00304 71665 Information not available 01/13/2023 In The 14 Days Before Symptom Onset, Have You Had Close Contact With A Person Who Is Under Investigation For COVID-19 While That Person Was Ill? No MIGRATION.69430 33321 Information not available 01/13/2023 What Type Of Diet Are You Following? REGULAR MIGRATION.03133 48317 Information not available 01/13/2023 Which Illicit Or Recreational Drugs Have You Used? Marijuana MIGRATION.67669 06722 Information not available 01/13/2023 What Was The Date Of Your Most Recent Tobacco Screening? 12/30/2022 MIGRATION.40153 19718 Information not available 01/13/2023 What Is Your Current Pack Years? 30ormorepacky ears MIGRATION.90932 25574 Information not available 01/13/2023 How Much Tobacco Do You Smoke? 1 PPD MIGRATION.58270 09384 Information not available 01/13/2023 Do You Use Any Illicit Or Recreational Drugs? Yes MIGRATION.34487 05203 Information not available 01/13/2023 Has Tobacco Cessation Counseling Been Provided? No MIGRATION.68095 10900 Information not available 01/13/2023 How Many Years Have You Smoked Tobacco? 45 Information not available 06/05/2024 Have You Recently Traveled Abroad? No MIGRATION.91971 65645 Information not available 01/13/2023 Have You Used IV Drugs? No MIGRATION.10350 42968 Information not available 01/13/2023 Do You Have Any Dietary Restrictions? No MIGRATION.89369 29717 Information not available 01/13/2023 Do You Or Have You Ever Used Any Other Forms Of Tobacco Or Nicotine? No MIGRATION.03315 96482 Information not available 01/13/2023 Sex: Unknown Functional Status Question Answer Note LastModified by Organizat ion Details LastModified Time What is your exercise level? Occasional [email or web address] Information not available 02/15/2023 Mental Status None recorded. Family History Relationship Description Onset Age of this Age Resolved Age Notes LastModified by Organization Details LastModified Time Sister Heart disease [email or web address] Not available 2023 11:25:33 Sister Hypertensive disorder [email or web address] Not available 2023 11:25:41 Sister Family history of malignant neoplasm bladde r cancer [email or web address] Not available 09/29/2024 11:38:38 Sister Family history of stroke [email or web address] Not available 09/29 11:38:38 Father Diabetes mellitus [id number] Not available 01/13/2023 13:51:48 Medical History Condition Response ARTHRITIS Y USE OF BLOOD THINNERS Y VASCULAR DISEASE Y SKIN PROBLEMS Y DIABETES, TYPE Y HEART DISEASE/HEART PROBLEMS Y EMPHYSEMA Y HEART ARRHYTHMIA Y COPD Y HYPERTENSION Y CANCER: SPECIFY Y ASTHMA Y OSTEOPOROSIS [...] mcg/0.3 mL dose 1 completed Not Available [facility] 12/09/2023 07:30:48 pneumococcal polysaccharide PPV23 6 completed Not Available [facility] 12/09/2023 07:30:48 Tdap 1 completed Not Available [facility] 12/09/2023 07:30:48 Influenza, split virus, quadrivalent, PF 5 completed Not Available [facility] 12/09/2023 07:30:48 Influenza, split virus, quadrivalent, PF 9 completed Not Available [facility] 12/09/2023 07:30:48 Influenza, split virus, quadrivalent, PF 6 completed Not Available [facility] 12/09/2023 07:30:48 Influenza, MDCK, quadrivalent, PF 2 completed Not Available [facility] 12/09/2023 07:30:48 COVID-19, mRNA, LNP-S, PF, 30 mcg/0.3 mL dose 1 completed Not Available [facility] 12/09/2023 07:30:48 COVID-19, mRNA, LNP-S, PF, 30 mcg/0.3 mL dose 1 completed Not Available [facility] 12/09/2023 07:30:48 PCV10 6 completed Not Available [facility] 12/09/2023 07:30:48 Tdap 9 completed Not Available [facility] 12/09/2023 07:30:48 Influenza, split virus, quadrivalent, PF 7 completed Not Available [facility] 12/09/2023 07:30:48 Influenza, split virus, quadrivalent, PF 8 completed Not Available [facility] 12/09/2023 07:30:48 Past Encounters Encounter ID Performer Location Encounter Start Date Encounter Closed Date Diagnosis/Indication Diagnosis SNOMED-CT Code Diagnosis ICD10 Code Diagnosis Note [id number] [facility] [place] [address] [place] [address] 04/10/2021 00:00:00 04/10/2021 15:03:00 [id number] [facility] [place] [address] [place] [address] 07/24/2021 00:00:00 07/24/2021 14:52:39 [id number] [facility] [place] [address] [place] [address] 09/11/2021 00:00:00 09/11/2021 19:41:35 [id number] [facility] [place] [address] [facility] [address] [place] [address] 09/25/2021 00:00:00 09/25/2021 13:45:31 [id number] [facility] [place] [address] [facility] [address] [place] [address] 11/27/2021 00:00:00 11/27/2021 17:21:55 [id number] [facility] [place] [address] [facility] [address] [place] [address] 01/09/2022 00:00:00 01/09/2022 13:49:17 [id number] [facility] [address] [place] [address] [address] 01/14/2022 00:00:00 01/14/2022 12:15:16 [id number] [facility] [place] [address] [facility] [address] [place] [address] 01/16/2022 00:00:00 01/16/2022 13:45:45 [id number] [facility] [address] [address] 01/28/2022 00:00:00 01/28/2022 10:37:52 [id number] [facility] [place] [address] [facility] [address] [place] [address] 02/04/2022 00:00:00 02/04/2022 10:09:13 [id number] [facility] [address] [address] 02/11/2022 00:00:00 02/11/2022 11:28:41 [id number] [facility] [place] [address] [place] [address] 03/05/2022 00:00:00 03/05/2022 20:54:57 [id number] [facility] [address], [address] [place] [address] 03/11/2022 00:00:00 03/11/2022 11:57:34 [id number] [facility] [place] [address] [place] [address] 03/12/2022 00:00:00 03/12/2022 20:05:18 [id number] [facility] [place] [address] [place] [address] 03/30/2022 00:00:00 03/30/2022 18:57:59 [id number] [facility] [address] [facility] [address] [place] [address] 04/10/2022 00:00:00 04/10/2022 15:42:18 [id number] [facility] [place] [address] [place] [address] 04/14/2022 00:00:00 04/14/2022 17:08:42 [id number] [facility] [place] [address] [place] [address] 05/12/2022 00:00:00 05/12/2022 11:08:10 [id number] [facility] [place] [address] [place] [address] 06/08/2022 00:00:00 06/08/2022 13:25:34 [id number] [facility] [place] [address] [place] [address] 07/08/2022 00:00:00 07/08/2022 11:21:41 [id number] [facility] [address] [facility] [address] [place] [address] 08/06/2022 00:00:00 08/06/2022 10:16:45 [id number] [facility] [place] [address] [facility] [address] [place] [address] 08/10/2022 00:00:00 08/10/2022 18:36:42 [id number] [facility] [place] [address] [facility] [address] [place], [place] [address] 11/02/2022 00:00:00 11/02/2022 17:50:24 [id number] [facility] [place] [address] [facility] [address] [place], [place] [address] 12/30/2022 00:00:00 01/10/2023 19:17:51 [id number] BRIANA Nair [facility] Primary Care [place] [address] [facility] [address] [place] [address] 01/21/2023 08:41:06 01/21/2023 10:28:13 Transition of care [id number] 105 Z75.8 Facility: [facility] mission Date: 01/05/23Dis charge Date: 01/08/23Rev iewed/hetal nciled medication lists.RTO 6 weeks for f/u on referral Malignant neoplasm of urinary bladder 338082540 C67.9 Recurrent s/p surgical resection (01/21/22, 02/21/22, 01/18/23)Donnie tipton update referral for oncology as pt states she doesn't currently have a provider. Chronic back pain 274806 002 M54.9 ChronicDai ly good back mechanics reviewed with patient, good posture, avoid prolonged sitting or standing, stretches given and reviewed with patient. Heat 10-15 minutes 3 times daily as needed for pain or spasms. Go to ED for neurologic symptoms or incontinen ce. Toradol injection given in office today. Asthma 980112348 J45.90 9 Chronic, stableNot well controlled Encouraged to use rescue inhaler more frequently .Instructe d on correct inhaler use. Avoid any asthma triggers such as dust, chemicals, smoke. With continued sx, may need to start Montelukas t or try combo inhaler. Cigarette smoker 0725661 7 F17.210 Encouraged pt to continue working on smoking cessation. Down to approx 5 cigs/day.S moking cessation counseling and techniques reviewed at length with pt. Literature reviewed. Avoid triggers, support groups. Discussed cessation options (counselin g, medication s, e-cigarett es, patches, alternativ e therapies) . Rx for nicotine patches given. Advised to avoid smoking while wearing patch. Diverticulitis 947984114 K57.92 Chronic, recurrentR esolved during hospitaliz ation.Enco uraged patient to avoid seeds/nuts /corn. When having sx, recommend pt consume liquid diet for the next 1-2 days until feeling better. Also avoid raw fruits and vegetables until pain is improved. [id number] Deisi Andrews MD [facility] Primary Care [facility] [address] [facility] [address] [place] [address] 02/15/2023 14:10:36 02/15/2023 14:51:25 Type 2 diabetes mellitus 94669997 E11.9 currently on metformin 500 mg bid but can't tolerate higher doses due to GI distressch silas a1c, may need to add second med pending results Essential hypertension 41812825 I10 not in good control, feeling pain todayconti nue losartan 100 mg and metoprolol ER 25 mg dailyf/u in 2 weeks or sooner if needed Abdominal pain 61559108 R10.9 has had nausea and malaise since her last cystoscopy check labs and urinalysis if labs are normal, will consider imagingrev iewed s/s that warrant urgent/pieter rgent eval in meantime Malignant neoplasm of urinary bladder 983144130 C67.9 [id number] Deisi Andrews MD [facility] Primary Care [facility] [address] [facility] [address] [place] [address] 02/18/2023 12:54:13 02/18/2023 14:09:00 [id number] JOSE Carrillo [facility] [place] [address] [place] [address] 02/18/2023 14:41:23 02/18/2023 15:00:04 Bilateral osteoarthritis of knees 6995822554 56050 M17.0 Pain in ri ght hip joint 9550896463 60905 M25.551 Trochanter ic bursitis of right hip 2274551325 46617 M70.61 [id number] Deisi Andrews MD [facility] Primary Care [facility] [address] [facility] [address] [place] [address] 03/01/2023 11:56:25 03/01/2023 12:42:08 Blood in urine 87542129 R31.9 repeat urine Vaginitis 16894546 N76.0 Type 2 patrick betes mellitus 57256303 E11.9 currently on metformin 500 mg bid but can't tolerate higher doses due to GI distressa1 c was excellent at 6.9 Essential hypertension 27293888 I10 much improvedco ntinue losartan 100 mg and metoprolol ER 25 mg dailyf/u in 4 weeks or sooner if needed Malignant neoplasm of urinary bladder 558579222 C67.9 stablehydr ocodone/ap ap 7.5/500 po q6 hours prn pain #20 [id number] Deisi Andrews MD [facility] Primary Care [facility] [address] [facility] [address] [place] [address] 03/22/2023 14:54:50 03/22/2023 15:06:49 [id number] Deisi Andrews MD [facility] Primary Care [facility] [address] [facility] [address] [place] [address] 04/05/2023 11:47:24 04/05/2023 12:14:38 Malignant neoplasm of urinary bladder 605994501 C67.9 stablehydr ocodone/ap ap 7.5/500 po q6 hours prn pain #30 Type 2 patrick betes mellitus 46241842 E11.9 currently on metformin 500 mg bid but can't tolerate higher doses due to GI distressa1 c was excellent at 6.9continu e current meds Essential hypertension 65995126 I10 stablecont inue losartan 100 mg and metoprolol ER 25 mg dailyf/u in 3 months [id number] Carlin Hamm MD [facility] [address] [place] [address] 04/21/2023 10:18:04 04/21/2023 11:25:23 Pain of left wrist 8989838534 55892 M25.532 Pain of le ft elbow joint 9791584393 0621206 M25.522 Pain of left forearm 703 0183742 30207 M79.632 Dislocatio n of elbow joint 335467432 S53.105A Closed fra cture of coronoid process of ulna 15540470 S52.042A Closed fra cture of distal end of radius 77963885 S52.502A [id number] Deisi Andrews MD [facility] Primary Care [facility] [address] [facility] [address] [place] [address] 04/22/2023 17:20:32 04/22/2023 17:22:25 [id number] JOSE Barajas [facility] Primary Care [facility] [address] [facility] [address] [place] [address] 04/28/2023 09:03:16 04/28/2023 09:35:55 Closed fracture of distal end of radius 12673093 S52.502A CT scheduled today. Advised to continue f/u with ortho to determine if surgery needed per ortho note. Keep arm in splint/sli ng. She is requesting pain medication . Advised I can do 3 days and she will need to continue pain control with ortho. Malignant neoplasm of urinary bladder 735636584 C67.9 Pt. requesting repeat toradol injection. [id number] Carlin Hamm MD [facility] [place] [address] [place] [address] 04/30/2023 11:32:11 04/30/2023 12:21:04 Pain of left forearm 5921219709 25202 M79.632 Dislocatio n of elbow joint 172873782 S53.105A Closed fra cture of distal end of radius 36030481 S52.502A [id number] Carlin Hamm MD [facility] Ortho [address] [address] 05/03/2023 11:29:29 05/03/2023 12:04:16 Pain of left wrist 6586015441 62731 M25.532 Closed fra cture of distal end of radius 05576006 S52.502A Dislocatio n of elbow joint 038439584 S53.105A [id number] Carrie Villatoro NP [facility] [place] [address] [place] [address] 05/12/2023 11:30:59 05/12/2023 12:10:07 Closed fracture of distal end of radius 69035199 S52.502D Pain of left wrist 60625 37092 90377 M25.532 Dislocatio n of elbow joint 158556253 S53.105D [id number] Carlin Hamm MD [facility] [place] [address] [place] [address] 05/26/2023 10:41:34 05/26/2023 11:05:06 Pain of left wrist 7044480440 56131 M25.532 [id number] [facility] [address] [place] [address] [address] [place] [address] 05/26/2023 11:56:35 06/14/2023 17:26:36 [id number] JOSE Carrillo [facility] [address] [place] [address] 06/01/2023 14:35:10 06/01/2023 16:07:53 Bilateral osteoarthritis of knees 2852515366 61433 M17.0 Pain in ri ght hip joint 3541888040 52196 M25.551 Trochanter ic bursitis of right hip 2442903019 49515 M70.61 [id number] Carlin Hamm MD [facility] [address] [place] [address] 06/15/2023 10:55:39 06/15/2023 11:35:22 Pain of left elbow joint 1554545229 3927498 M25.522 Pain of left wrist 72759 74461 60639 M25.532 [id number] Deisi Andrews MD [facility] [place] [address] [facility] [address] [place] [address] 06/15/2023 14:04:21 06/15/2023 14:19:35 Acute sinusitis 50858738 J01.90 [id number] Deisi Andrews MD [facility] [place] [address] [facility] [address] [place] [address] 06/22/2023 13:59:01 06/22/2023 14:24:58 Acute sinusitis 88830996 J01.90 [id number] Deisi Andrews MD [facility] [place] [address] [facility] [address] [place] [address] 06/29/2023 12:10:23 06/29/2023 12:29:02 [id number] Deisi Andrews MD [facility] [place] [address] [facility] [address] [place] [address] 07/05/2023 11:23:03 07/05/2023 11:55:41 Acute sinusitis 93146718 J01.90 amoxicilli n bid x 7 dayscall/r eturn if no improvemen t in 1-2 days or sooner if neededrevi ewed s/s that warrant urgent/pieter rgent eval in meantime Dysuria 89759522 R30.0 Check UA Cobalamin deficiency 190 160971 E53.8 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 469891649 E11.43 struggling with nausea, requests reglanrefi ll and referral given Vitamin D deficiency 347 46153 E55.9 Hyperlipidemia 70381613 E78.5 Pain of left wrist 42504 44493 [address] Hamm Low back pain 996406879 M54.50 [id number] Carrie Villatoro NP [facility]o [place] [address] [place] [address] 07/20/2023 10:19:42 07/20/2023 10:53:14 Pain of left wrist 6731869185 67031 M25.532 Closed tra umatic dislocation of elbow joint 8489411 S53.105D Closed fra cture of distal end of radius 79265451 S52.502D Pain of le ft elbow joint 8932584418 8061109 M25.395 [id number] BRIANA Nair [facility] [place] [address] [place] [address] 08/13/2023 16:54:27 08/13/2023 18:15:23 [id number] Deisi Andrews MD [facility] Primary [facility] [place] [address] [place] [address] 08/18/2023 11:33:47 08/18/2023 11:57:27 [id number] Deisi Andrews MD [facility] [place] [address] [place] [address] 09/01/2023 11:22:27 09/01/2023 12:22:40 [id number] Deisi Andrews MD [facility] [place] [address] [place] [address] 09/13/2023 10:56:46 09/13/2023 11:30:26 Transition of care 8679076948 105 Z75.8 Pain of left wrist 36397 04729 [address] Hammuses this sparingly Tachycardia 0548874 R00. [address] Bernal stress test reschedule d for 09/15/23 Renewal of prescription 400489175 Z76.0 [id number] JOSE Carrillo [facility] [place] [address] [place] [address] 09/17/2023 10:20:59 09/17/2023 11:09:40 Bilateral osteoarthritis of knees 8348039006 53303 M17.0 [id number] Deisi Andrews MD [facility] [place] [address] [place] [address] 09/27/2023 15:59:59 01/12/2024 11:39:11 [id number] Deisi Andrews MD [facility] [place] [address] [place] [address] 10/12/2023 10:36:21 10/12/2023 11:18:21 [id number] BRIANA [place]-Gerardo [facility] Primary [address] [place] [address] 10/15/2023 11:01:02 10/15/2023 11:17:43 [id number] Deisi Andrews MD [facility] Primary Care [address] [place] [address] 11/16/2023 10:08:05 11/16/2023 10:46:40 Cobalamin deficiency 983334720 E53.8 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 546033805 E11.43 Vitamin D deficiency 347 84290 E55.9 Hyperlipidemia 34753696 E78.5 Pain of left wrist 99403 94819 [address] Hamm Low back pain 413561772 M54.50 Essential hypertension 84129776 I10 sees cardiology tomorrowco ntinue losartan 100 mg and metoprolol ER 25 mg dailyf/u in 3 months Hypomagnesemia 316952565 E83.42 [id number] JOSE Carrillo [facility] [place] [address] [facility] [address] [place] [address] 12/10/2023 11:14:07 12/10/2023 11:57:29 Bilateral osteoarthritis of knees 1124204579 46364 M17.0 [id number] Deisi Andrews MD [address] [facility] [place] [address] 12/28/2023 16:46:59 12/28/2023 17:32:54 [id number] Deisi Andrews MD [address] [place] [address] 01/04/2024 14:15:06 01/04/2024 14:52:20 Degeneration of lumbar intervertebral disc 81729917 M51.36 Abscess of sigmoid colon 349626019 K63.0 ? sigmoid abscesswil l get copy of ER CT to reviewuse caution with abx, pt has h/o C. diffno fever or vomiting Eczema 98819304 L30.9 [id number] Deisi Andrews MD [facility] [place] [address] [facility] [address] [place] [address] 02/17/2024 10:43:38 02/17/2024 10:53:58 [id number] JOSE Carrillo [facility] [place] [address] [place] [address] 02/25/2024 12:06:16 02/25/2024 12:26:39 Bilateral osteoarthritis of knees 2539246386 60167 M17.0 Pain of bi lateral knee joints 3565265031 01560 M25.561 M25.743 [id number] Deisi Andrews MD [facility] Primary Care [place] [address] [place] [address] 03/07/2024 14:12:41 03/07/2024 15:17:27 Acute sinusitis 26528234 J01.90 amoxicilli n bid x 7 dayscall/r eturn if no improvemen t in 1-2 days or sooner if neededrevi ewed s/s that warrant urgent/pieter rgent eval in meantime Multiple joint pain 3567 [address] Hamm Renewal of prescription 242604755 Z76.0 Cobalamin deficiency 190 296818 E53.8 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 896035130 E11.43 Vitamin D deficiency 347 81549 E55.9 Hyperlipidemia 73324671 E78.5 Low back pain 922539384 M54.50 Essential hypertension 95258636 I10 in excellent controlcon tinue losartan 100 mg and metoprolol ER 25 mg dailyf/u in 3 months Hypomagnesemia 214494443 E83.42 [id number] Carlin Hamm MD [facility] [place] [address] [place] [address] 03/22/2024 13:42:07 03/22/2024 14:37:26 Pain of left elbow joint 1855460651 3578714 M25.522 Pain of left wrist 89796 43610 77613 M25.080 [id number] Jeanna Bryant [facility] [place] [address] [facility] [address] [place] [address] 03/22/2024 11:32:42 04/11/2024 15:45:23 [id number] Jose Montoya RN TRANSFER-C [facility] [place] [address] [facility] [address] [place] [address] 04/19/2024 14:13:49 04/19/2024 15:24:57 [id number] Jose Montoya RN TRANSFER-C [facility] Primary [facility] [place] [address] [facility] [address] [facility] [place] [address] 04/20/2024 12:26:29 04/20/2024 13:56:38 [id number] Jose Montoya RN TRANSFER-C [facility] Primary Care [facility] [address] [facility] [address] [facility] [place] [address] 05/09/2024 12:23:41 05/09/2024 15:55:31 [id number] JOSE Carrillo [facility] [place] [address] [address] [place] [address] 06/05/2024 10:59:22 06/05/2024 16:27:04 Bilateral osteoarthritis of knees 0943869144 08151 M17.0 Pain in ri ght hip joint 3843445677 94653 M25.551 Trochanter ic bursitis of right hip 9011662942 67269 M70.61 Pain of bi lateral knee joints 4166319723 22773 M25.561 M25.138 [id number] Jose Montoya RN TRANSFER-C [facility] Primary Care [facility] [address] [facility] [address] [place] [address] 06/27/2024 10:18:32 06/27/2024 10:49:45 Dysuria 85889940 R30.0 currently taking antibiotic sif symptoms continue, she will come in for urine dip Blood in urine 85545307 R31.9 recent cystoscopy pathology came back and was told she has bladder cancerf/u in 1 month with urology Chronic back pain 312945 002 M54.9 [id number] DARLEEN Carroll [facility] Primary Care [facility] [address] [facility] [address] [place] [address] 08/08/2024 10:53:06 08/08/2024 11:36:59 Malignant neoplasm of urinary bladder 600915598 C67.9 pt already seeing urology for this issuehas already started BCG treatment Seasonal allergy 3209648 04 J30.2 Low back pain 854510915 M54.50 [id number] DARLEEN Andrea [facility] Primary Care [facility] [address] [facility] [address] [place] [address] 08/24/2024 10:23:41 08/24/2024 11:14:49 Adult health examination 156088870 Z00.00 Discussed medication compliance and routine follow up.Discuss ed healthy diet and routine exercise.Wilda mgiewed vaccine records and made recommenda tions as needed.Enc ouraged annual eye and dental exams, as well as twice yearly dental cleanings. Will check screening labs as listed below. Cerebrovas cular accident 901112533 I63.9 Chronic ob structive pulmonary disease 96384680 J44.9 Cigarette smoker 8821845 7 F17.210 Depressive disorder 3548 9007 F32.A Diabetes mellitus 226577 09 E11.9 Eczema 29142034 L30.9 Essential hypertension 32812307 I10 118/80 Hyperlipidemia 32599664 E78.5 Vitamin D deficiency 347 46931 E55.9 Body mass index 30+ - obesity 710000340 Z68.33 BMI 33.8 Screening mammography 24 475131 Z12.31 Spasm 40163771 R25.2 [id number] DARLEEN Andrea [facility] Primary Care [facility] [address] [facility] [address] [place] [address] 09/13/2024 14:07:11 09/13/2024 14:40:00 [id number] JOSE Carrillo [facility] Ortho [place] [address] [place] [address] 09/29/2024 11:36:27 09/29/2024 12:03:37 Bilateral osteoarthritis of knees 0090612556 60732 M17.0 Pain of bi lateral knee joints 8270659078 79925 M25.561 M25.562 Health Concerns Section Related Observation LastModified by Organization Detai ls LastModified Time None Recorded Concern Status LastModified by Organization Details LastModified Time None Recorded Advance Directives Directive None Recorded Payers Encounter Date Sequence Insurance Name Policy Number Policy Larsen Covered Member ID Larsen Member ID Guarantor Name 06/27/2024 1 [facility] ON OR AFTER 05/15/21 (MEDICAID REPLACEMENT - HMO) Rody J Gelso [id number] Rody J Gelso 08/08/2024 1 [facility] ON OR AFTER 05/15/21 (MEDICAID REPLACEMENT - HMO) Rody J Gelso [id number] Rody J Gelso 08/24/2024 1 [facility] ON OR AFTER 05/15/21 (MEDICAID REPLACEMENT - HMO) Rody J Gelso [id number] Rody J Gelso 09/13/2024 1 [facility] ON OR AFTER 05/15/21 (MEDICAID REPLACEMENT - HMO) Rody Sarai Gelso [id number] Rody J Gelso 09/29/2024 1 [facility] ON OR AFTER 05/15/21 (MEDICAID REPLACEMENT - HMO) Rody J Gelso [id number] Rody J Gelso Notes Date Note Type Note Provider Name and Address Organization Details Recorded Time 06/27/2024 text/html Pt is here for f/u DARLEEN Weiss [address], [address], [place] 06/27/2024 10:42:23 08/08/2024 text/html pt is here for f/u DARLEEN Weiss [address] [address], [place], [address], [place] 08/29/2024 14:06:42 08/24/2024 text/html Patient is a 63 year old female that presents to the office for annual wellness. Patient reports she is doing well on current medications. Patient is receiving BCG treatments for bladder cancer--has 3 treatments remaining. Patient denies any other medical concerns including chest pain and shortness of breath, nausea vomiting and diarrhea. labs-orderedmammogra m-orderedcolonoscopy - (09/2023)WWE- sees DKRMjy-ollcwZapfy-SL GXfcm-RVVPjxthbgd-CF DPneumo-UTD BEHZAD AndreaP-C [address], [place], [address], [place] 08/24/2024 13:29:47 09/29/2024 text/html the patient retu rns with bilateral knee pain she has severe primary osteoarthritis of both knees which is wwqg-xk-arwj. She has severe changes in the tibial [...] both knees. JOSE Carrillo [address], [facility] [address], [place], [address], [place] 09/29/2024 12:07:57 OBGyn Episode No OBEpisode recorded.
--- OUTSIDE RECORDS SUMMARY | 2024-12-24 12:54 | XMS_ITS | Clinical Summary ---
Author Organization [facility] Katherine cummins Address [address] [place] [id number] Phone Care Team Providers Care Seaming Machine Operator Name Role Phone Unavailable Primary [...] Comments Blood Pressure 138/84 01/15/2016 12:01 AM ADVERTISING OPERATIONS COORDINATOR Ri ght Pulse - - Temperature 36.3 C (97.3 F) 01/15/2016 12:01 AM ADVERTISING OPERATIONS COORDINATOR Respiratory Rate - - Oxygen Saturation - - Inhaled Oxygen Concentration - - Weight 102 kg (225 lb) 01/15/2016 12:01 AM ADVERTISING OPERATIONS COORDINATOR Height 157.5 cm (5' 2 ) 01/15/2016 12:01 AM ADVERTISING OPERATIONS COORDINATOR Body Mass Index 41.15 01/15/2016 12:01 AM ADVERTISING OPERATIONS COORDINATOR Plan of Treatment Not on file
== END 2024-12-24 12:46 | disposition home or self-care (01) ==
PROVIDERS: PCP Family Medicine
DX: M54.16 Radiculopathy, lumbar region (principal); M51.369 Other intervertebral disc degeneration, lumbar region without mention of lumbar back pain or lower extremity pain
CPT/HCPCS: 72110

== ENCOUNTER 2025-01-05 10:45 | Outpatient (CLI) | payer OTHER, SELFPAY ==
--- NOTE | ~2025-01-05 | XR_ITS ---
[id number] 01/05/2025 11:03 Indication: Back pain Procedure: 4 view cervical spine Comparison: No prior studies for comparison. Findings: Straightening of cervical lordosis. There is degenerative anterolisthesis at C4-5. There is disc narrowing at C5-6 and C6-7. Odontoid process is normal. There is advanced multilevel uncinate a nd facet hypertrophy. Lung apices are normal. No prevertebral soft tissue swelling. No acute fracture . Impression: 1: Severe cervical spondylosis. Reviewed, dictated and finalized at location L. THERAPIST Impression: 1: Severe cervical spondylosis.
--- OUTSIDE RECORDS SUMMARY | 2025-01-05 11:18 | XMS_ITS | Clinical Summary ---
Author Organization [facility] Address [address] [place] [address] Care Team Providers Care Bending Frame Operator Name Role Phone Asa Mcnamara MD Unavailable [phone] Neva Holden MD Primary Care Provider [phone] Allergies Active Allergy Reactions Criticality Noted Date Comments Codeine Nausea and Vomiting 04/05/2019 Haloperidol Seizure 05/20/2016 Ketorolac Tromethamine Unknown 04/04/2013 Penicillins Hives,Redness High 04/04/2013 Ypt-Ob-Jmm-Propyl Gpgsfc-Hwd-Stqdnmjyb Seizure 05/20/2016 Risperidone And Related Hives,Other (see [...] tablet 1 0 Active vitamin D2, ergocalciferol, 53011 UNITS capsule Take 50,000 Units by mouth [...] (primary) hypertension PVD (peripheral vascular disease) Emphysema/COPD ([facility]) Diabetes ([facility]) Stroke ([facility]) Overview (05/20/2016): h/o Asthma ([facility]) Arthritis GERD (gastroesophageal reflux disease) Migraines Resolved [...] Assigned at Female 12/06/2019 3:36 PM RN TRANSFER Legal Sex Female 5:20 PM CDT Gender Identity Female 12/06/2019 3:36 PM RN TRANSFER Sexual Orientation Straight 12/06/2019 3: 36 PM RN TRANSFER Occupation Industry Job Start Date Job End Date Not on file Not on file Not on file Not on file Last Filed Vital Signs Vital Sign Reading Time Taken Comments Blood Pressure 102/80 06/14/2020 1:49 PM CDT Pulse 98 06/14/2020 1:49 PM CDT Temperature 36.9 C (98.4 F) 12/07/2017 8:32 AM RN TRANSFER Respiratory Rate 18 12/07/2017 8:32 AM RN TRANSFER Oxygen Saturation 95% 02/21/2020 8:36 AM CDT [...] 05/02/2020 LIPID PANEL Routine 12/19/2018 7:52 AM RN TRANSFER Mixed hyperlipidemia from Last 3 Months or Most Recently Relevant to Health Maintenance Results * HEMOGLOBIN, GLYCOSYLATED (05/02/2020) HGB A1C 7.6 % 05/02/2020 us Doc [facility] LABORATORY Final Result * (ABNORMAL) LIPID PANEL (12/19/2018 7:52 AM RN TRANSFER) CHOLESTEROL 173 <200 MG/DL 12/19/2018 8:31 AM [facility] TRIGLYCERIDES 155(H) <150 MG/DL 12/19/2018 8:31 AM [facility] HDL 44 >40.0 MG/DL 12/19/2018 8:31 AM [facility] LDL (CALCULATED) 98 <100 MG/DL 12/19/2018 8:31 AM [facility] NON HDL CHOLESTEROL 129 <130 MG/DL 12/19/2018 8:31 AM [facility] CHOL/HDL RATIO 3.9 0.0 - 4.5 12/19/2018 8:31 AM [facility] VLDL CALCULATION 31 5 - 55 MG/DL 12/19/2018 8:31 AM [facility] LIPID INTERPRETATION 12/19/2018 8:31 AM [facility] Comment: [facility] REPORT RECOMMENDATIONS: ADULT CHILD LOW RISK: CHOLESTEROL <200 <170 TRIGLYCERIDE <150 --- HDL >=60 --- LDL <100 <110 BORDERLINE: CHOLESTEROL 200-239 170-199 TRIGLYCERIDE 150-199 --- HDL 40-59 --- LDL 100-159 110-129 HIGH RISK: CHOLESTEROL >=240 >=200 TRIGLYCERIDE >=200 --- HDL <40 --- LDL >=160 >=130 12/19/2018 7:52 AM RN TRANSFER us Asa Mcnamara MD LABORATORY Final Result [facility] [address] [place] [address], from Last 3 Months or Most Recently Relevant to Health Maintenance Insurance [facility] Care Teams Bending Frame Operator Relationship Specialty Start Date End Date Neva Holden MD . [facility] [address] [place] [address] PCP - General FAMILY PRACTICE 02/14/20 Asa Mcnamara MD [facility] [address] [place] [address] [place] [employer] CARDIOVASCULAR DISEASE 05/15/16
--- OUTSIDE RECORDS SUMMARY | 2025-01-05 11:18 | XMS_ITS | Patient Health Record ---
Author Organization [facility] Address [address] [place] [address] Care Team Providers Care Horse Show Judge Name Role Phone Earl Bhandari Unavailable [phone] REASON FOR REFERRAL No Information PLAN OF TREATMENT No Information Insurance Providers Payer Name Payer Address Payer Phone Subscriber Number Group Number Insured Name Patient Relationship to Insured Coverage Start Date Coverage End Date [facility] [address] [place] [phone] [id number] Rody Zaidi Self - patient is the insured
--- OUTSIDE RECORDS SUMMARY | 2025-01-05 11:18 | XMS_ITS | Clinical Summary ---
Author Organization [facility] [address] [facility] Address [email or web address] [place] [address] Care Team Providers Care Cotton Opener Name Role Phone Matti Balderas MD Primary Care Provider [phone] Allergies Active Allergy Reactions Criticality Noted Date Comments Haloperidol Other (See comments) Low 04/13/2023 Facial drooping Penicillins Hives High Reaction: Hives, Risperidone Other (See comments) Low 04/13/2023 Dry mouth Kzovejn-Vlf-Udh Reductase Inhibitors Muscle pain Medium 08/27/2023 Pt [...] 01/21/2023 04/13/2023 Coronary artery disease invo lving [place] coronary artery of [place] heart without angina pectoris 10/24/2020 04/13/2023 Anxiety [...] Type Department Care Team Description 12/22/2024 Telephone [facility] Cardiology [address] [facility] [address] [place] [phone] Unknown, Notinfile 12/08/2024 10:00 AM REGISTERED MASSAGE THERAPIST Office Visit [facility] Cardiology [address] [place] [phone] Amber Montano NP Abnormal ECG (Primary Dx); Hypertension associated with diabetes (HCC); Paroxysmal atrial fibrillation (CMS/HCC) (HCC); Encounter for monitoring sotalol therapy; Chronic anticoagulation; History of recent pneumonia; Hospital discharge follow-up 11/18/2024 Orders Only [facility] Health Information Management [address] [place] [id number] Jahaira Siu MD from Last 3 Months Surgical History Surgery Date Site/Laterality Comments PA CHOLECYSTECTOMY Cholecystectomy - (Added by TW Conv) PA DELIVERY ONLY Section - (Added by TW Conv) PA LIG/TRNSXJ FLP TUBE ABDL/ VAG APPR UNI/BI Tubal Ligation - (Added by TW Conv) OTHER SURGICAL HISTORY 01/17/2024 bladder procedure at [facility] Medical History Medical History Date Comments Personal [...] often do you attend chur ch or religion services? 1 to 4 times per year 04/14/2023 Do you belong to any clubs o r organizations such as jain groups, unions, fraternal or athletic groups, or [...] place to sleep or slept in a retirement (including now)? No 04/14/2023 Personal Safety Answer Date Recorded Have you ever been in or are you currently in a harmful physical or emotional relationship or is someone making you feel afraid or unsafe? Denies 04/13/2023 Comments Unknown Sex and Gender Information Value Date Recorded Sex Assigned at Not on file Legal Sex Female 7:48 PM REGISTERED MASSAGE THERAPIST Gender Identity Not on file Sexual Orientation Not on file Obstetrics History Last Filed Vital Signs Vital Sign Reading Time Taken Comments Blood Pressure 90/58 12/08/2024 10:08 AM REGISTERED MASSAGE THERAPIST Pulse 112 12/08/2024 10:08 AM REGISTERED MASSAGE THERAPIST Temperature 36.3 C (97.3 F) 04/14/2023 11:23 AM CDT Respiratory Rate 16 12/16/2023 8:10 AM REGISTERED MASSAGE THERAPIST Oxygen Saturation 99% 12/08/2024 10:08 AM REGISTERED MASSAGE THERAPIST Inhaled Oxygen Concentration - - Weight 77.6 kg (171 lb) 12/08/2024 10:08 AM REGISTERED MASSAGE THERAPIST Height 160 cm (5' 3 ) 12/08/2024 10:08 AM REGISTERED MASSAGE THERAPIST Body Mass Index 30.29 12/08/2024 10:08 AM REGISTERED MASSAGE THERAPIST Plan of Treatment Health Maintenance Due Date Last Done Comments Albumin Creatinine Ratio, Urine 1961 Cervical Cancer Screening 1961 Colon Cancer Screening-Colonoscopy 1961 Depression Screening 1961 Hemoglobin A1C 1961 Hepatitis C Screening 1961 Dilated Eye Exam 1961 Foot Exam 1961 Hepatitis B Screening 1979 Regular Well Visit/Exam 18-64 1979 Lung Cancer Screening 2011 Zoster Vaccine (1 of 2) 2011 Pneumococcal vaccine <65 (3 of 3 - PCV20 or PCV21) 10/21/2021 10/21/2016, 07/23/2016, 12/16/2015 Breast Cancer Screening-Mammogram 10/23/2022 021 eGFR 04/13/2024 04/13/2023 Covid-19 Vaccine (4 - 2023-2 5 season) 2024 03/13/2021, 02/17/2021, 02/06/2021 Influenza Vaccine (#1) 2024 , 01/05/2022, 08/28/2020, Additional history exists Lipid Panel 01/19/2025 01/20/2024, 08/15, 12/19/2018 DTaP/Tdap/Td Vaccine (3 - Td or Tdap) 05/27/2031 05/27/2021, 01/31/2019 Medical Devices Implanted Type Area Twist Tester Device Identifier Shelf Expiration Date Model / Serial / Lot Stent Bilateral: Leg Procedures Procedure Name Priority Date/Time Associated Diagnosis Comments ECG 12-LEAD Routine 12/08/2024 11:20 AM REGISTERED MASSAGE THERAPIST Paroxysmal atrial fibrillation (CMS/HCC) (HCC) CARDIOLOGY DOCUMENT SCAN 11/18/2024 POCT LIPID PANEL Routine 01/20/2024 9:29 AM REGISTERED MASSAGE THERAPIST Coronary artery disease involving [place] coronary artery of zuni heart without angina pectoris EGFR STAT 04/13/2023 11:30 AM CDT from Last 3 Months or Most Recently Relevant to Health Maintenance Results * ECG 12 lead (12/08/2024 11:20 AM REGISTERED MASSAGE THERAPIST) 12/08/2024 11:2 0 AM REGISTERED MASSAGE THERAPIST Amber Montano NP ECG ORDERABLES Final Res ult * Cardiology Document Scan (11/18/2024) Anatomical Region Laterality Modality Other Jahaira Siu MD CV CARDIAC SERVICES PROCEDU RES Final Result * POCT lipid panel (01/20/2024 9:29 AM REGISTERED MASSAGE THERAPIST) Cholesterol, POC 236 mg/dL Comment:GLU = 134 HDL, POC 38 mg/dL Triglycerides, POC 231 mg/dL LDL Cholesterol POC 152 mg/dL Chol/HDL Ratio, POC 4.0 Non-HDL Cholesterol, POC 198 mg/dL Cholesterol Total, POC 236 mg/dL Capillary blood 01/20/2024 9 :29 AM REGISTERED MASSAGE THERAPIST Ed Blevins MD POINT OF CARE TEST ORDER JENNIFER Final Result * eGFR (04/13/2023 11:30 AM CDT) eGFR 78 mL/min/1. 73 m2 [facility] Comment: Interpretive Data Reference Interval Normal [...] NP LAB BLOOD ORDERABLES Fin al Result [facility] [address] [facility] Department [place] [address] from Last 3 Months or Most Recently Relevant to Health Maintenance Insurance [facility] Advance Directives For more information, please contact: [phone] * Full Code (Latest Code Status on File) Date Activated Date Inactivated Comments 04/13/2023 6:57 PM 04/14/2023 5:30 PM Care Teams Cotton Opener Relationship Specialty Start Date End Date Matti Balderas MD [address] [place] [id number] PCP - General Family Medicine 12/08/24
--- OUTSIDE RECORDS SUMMARY | 2025-01-05 11:18 | XMS_ITS | Referral Summary ---
Author Organization [facility] [address] [place] [address] Address [address] [place] [address] Care Team Providers Care Plate Washer Name Role Phone Matti Balderas MD Primary Care Provider [phone] Encounters Date Type Department Care Team Description 12/22/2024 Telephone [facility] Cardiology [address] [place] [phone] Unknown, Notinfile 12/08/2024 10:00 AM RODEO PERFORMER Office Visit [facility] Cardiology [address] [place] [phone] Amber Montano NP Abnormal ECG (Primary Dx); Hypertension associated with diabetes (HCC); Paroxysmal atrial fibrillation (CMS/HCC) (HCC); Encounter for monitoring sotalol therapy; Chronic anticoagulation; History of recent pneumonia; Hospital discharge follow-up 11/18/2024 Orders Only [facility] Health Information Management [address] [place] [address] Jahaira Siu MD from Last 3 Months Allergies Active Allergy Reactions Criticality Noted Date Comments Haloperidol Other (See comments) Low 04/13/2023 Facial drooping Penicillins Hives High Reaction: Hives, Risperidone Other (See comments) Low 04/13/2023 Dry mouth Agoytco-Dez-Leq Reductase Inhibitors Muscle pain Medium 08/27/2023 Pt [...] 01/21/2023 04/13/2023 Coronary artery disease invo lving [place] coronary artery of [place] heart without angina pectoris 10/24/2020 04/13/2023 Anxiety [...] often do you attend chur ch or orthodoxy services? 1 to 4 times per year 04/14/2023 Do you belong to any clubs o r organizations such as yarsani groups, unions, fraternal or athletic groups, or [...] on file Legal Sex Female 7:48 PM RODEO PERFORMER Gender Identity Not on file Sexual Orientation Not on file Last Filed Vital Signs Vital Sign Reading Time Taken Comments Blood Pressure 90/58 12/08/2024 10:08 AM RODEO PERFORMER Pulse 112 12/08/2024 10:08 AM RODEO PERFORMER Temperature 36.3 C (97.3 F) 04/14/2023 11:23 AM CDT Respiratory Rate 16 12/16/2023 8:10 AM RODEO PERFORMER Oxygen Saturation 99% 12/08/2024 10:08 AM RODEO PERFORMER Inhaled Oxygen Concentration - - Weight 77.6 kg (171 lb) 12/08/2024 10:08 AM RODEO PERFORMER Height 160 cm (5' 3 ) 12/08/2024 10:08 AM RODEO PERFORMER Body Mass Index 30.29 12/08/2024 10:08 AM RODEO PERFORMER Plan of Treatment Not on file Medical Devices Implanted Type Area Lot Porter Device Identifier Shelf Expiration Date Model / Serial / Lot Stent Bilateral: Leg Procedures Procedure Name Priority Date/Time Associated Diagnosis Comments ECG 12-LEAD Routine 12/08/2024 11:20 AM RODEO PERFORMER Paroxysmal atrial fibrillation (CMS/HCC) (HCC) CARDIOLOGY DOCUMENT SCAN 11/18/2024 POCT LIPID PANEL Routine 01/20/2024 9:29 AM RODEO PERFORMER Coronary artery disease involving [place] coronary artery of [place] heart without angina pectoris EGFR STAT 04/13/2023 11:30 AM CDT from Last 3 Months or Most Recently Relevant to Health Maintenance Results * ECG 12 lead (12/08/2024 11:20 AM RODEO PERFORMER) 12/08/2024 11:2 0 AM RODEO PERFORMER Amber Montano NP ECG ORDERABLES Final Res ult * Cardiology Document Scan (11/18/2024) Anatomical Region Laterality Modality Other Jahaira Siu MD CV CARDIAC SERVICES PROCEDU RES Final Result * POCT lipid panel (01/20/2024 9:29 AM RODEO PERFORMER) Cholesterol, POC 236 mg/dL Comment:GLU = 134 HDL, POC 38 mg/dL Triglycerides, POC 231 mg/dL LDL Cholesterol POC 152 mg/dL Chol/HDL Ratio, POC 4.0 Non-HDL Cholesterol, POC 198 mg/dL Cholesterol Total, POC 236 mg/dL Capillary blood 01/20/2024 9 :29 AM RODEO PERFORMER Ed Blevins MD POINT OF CARE TEST ORDER JENNIFER Final Result * eGFR (04/13/2023 11:30 AM CDT) eGFR 78 mL/min/1. 73 m2 [facility] Comment: Interpretive Data Reference Interval Normal [...] CDT 04/13/2023 11:54 AM CDT Deisi Vera ADMINISTRATIVE STAFF SUPERVISOR LAB BLOOD ORDERABLES Fin al Result [facility] [address] [facility] Department [place] [address] from Last 3 Months or Most Recently Relevant to Health Maintenance Insurance [facility] Advance Directives For more information, please contact: [phone] * Full Code (Latest Code Status on File) Date Activated Date Inactivated Comments 04/13/2023 6:57 PM 04/14/2023 5:30 PM Care Teams Plate Washer Relationship Specialty Start Date End Date Matti Balderas MD [address] [place] [address] PCP - General Family Medicine 12/08/24
--- OUTSIDE RECORDS SUMMARY | 2025-01-05 11:18 | XMS_ITS | Continuity of Care Document ---
Author Organization [facility] Address [address] [place] [address] [place] [address] Phone Care Team Providers Care Monitoring Engineer Name Role Phone William Garay MD Unavailable Unavailable Allergies, Adverse Reactions, Alerts Substance Reaction Status Criticality risperidone Active No Information KETOROLAC TROMETHAMINE Active No In formation penicillin G Active No Information Medications Medication Instructions Dosage Effective Dates (start - stop) Status Comments Effort 10 mg-325 mg tablet take 1 by [...] Diagnoses Date Provider Providers Copied on Encounter [facility], [address], [place], [address], [place] tel:[phone] [facility] No Information 5 Jarrod Thomas. [address], [place], [place], [address] , [place]. tel:[phone] Referring Provider: William Garay, [address], [place], [place], [address]. tel:[phone] OFFICE/OUTPA TIENT VISIT, [facility], [address], [place], [place], [address], [place] tel:[phone] [facility] PRES (chief complaint) HLP (chief complaint) back pain (chief complaint) Anxiety (chief complaint) Dietary surveillance and counselingOther encephalopathyBack painProteinuria 5 Jarrod Thomas. [address], [place], [place], [address] , [place]. tel:[phone] Referring Provider: Maurizio [address], [place], [place], [address]. tel:[phone] [facility], [address], [place], [place], [address], [place] tel:[phone] [facility] No Information 5 Jarrod Thomas. [address], [address], [place], [place], [address] , [place]. tel:[phone] OFFICE/OUTPA TIENT VISIT, [facility], [address], [place], [place], [address], [place] tel:[phone] [facility] chronic pain (chief complaint) DM (chief complaint) CVA (chief complaint) Dietary surveillance and counselingAsthmaCVA , AcuteGERDLumbago 5 Jarrod Thomas. [address], [place], [place], [address] , [place]. tel:[phone] Referring Provider: Maurizio [address], [place], [place], [address]. tel:[phone] OFFICE/OUTPA TIENT VISIT, [facility], [address], [place], [place], [address], [place] tel:[phone] [facility] HLP (chief complaint) GERD (chief complaint) DM (chief complaint) CVA (chief complaint) CVA, AcuteDiabetes Mellitus, Adult Onset, UncontrolledOther and unspecified hyperlipidemiaGERDD ietary surveillance and counseling 5 Jarrod Thomas. [address], [address], [place], [place], [address] , [place]. [phone] Referring Provider: Maurizio [address], [place], [place], [address]. tel:[phone] OFFICE/OUTPA TIENT VISIT, [facility], [address], [place], [place], [address], [place] tel:[phone] [facility] leg pain (chief complaint) chronic pain (chief complaint) GERD (chief complaint) HLP (chief complaint) headache (chief complaint) Dietary surveillance and counselingPain in limbOther and unspecified hyperlipidemiaHeada cheGERD 5 Jarrod Thomas. [address], [place], [place], [address] , [place]. tel:[phone] Referring Provider: Maurizio [address], [place], [place], [address]. tel:[phone] OFFICE/OUTPA TIENT VISIT, [facility], [address], [place], [place], [address], [place] tel:[phone] [facility] GERD (chief complaint) chronic pain (chief complaint) COPD (chief complaint) Dietary surveillance and counselingGERDLumba goCOPDOpioid type dependence, unspecified use 5 Jarrod Thomas. [address], [place], [place], [address] , [place]. tel:[phone] Referring Provider: Maurizio [address], [place], [place], [address]. tel:[phone] [facility], [address], [place], [address], [place] tel:[phone] [facility] No Information 5 Jarrod Thomas. [address], [place], [address] , [place]. tel:[phone] OFFICE/OUTPA TIENT VISIT, [facility], [address], [place], [place], [address], [place] tel:[phone] [facility] HLP (chief complaint) chronic pain (chief complaint) HTN (chief complaint) anxiety (chief complaint) Dietary surveillance and counselingCervicalg iaOther and unspecified hyperlipidemiaHyper tension, UnspecifiedGenerali zed anxiety disorder 5 Jarrod Thomas. [address], [place], [address] , [place]. [phone] Referring Provider: Maurizio [address], [place], [address]. tel:[phone] OFFICE/OUTPA TIENT VISIT, [facility], [address], [place], [address], [place] tel:[phone] [facility] HLP (chief complaint) chest pain (chief complaint) GERD (chief complaint) HTN (chief complaint) Chest Pain, UnspecifiedBody Mass Index 38.0-38.9, adultHypertension, UnspecifiedGERD 4 Jarrod Thomas. [address], [place], [place], [address] , [place]. [phone] Referring Provider: Maurizio [address], [place], [address]. tel:[phone] OFFICE/OUTPA TIENT VISIT, [facility], [address], [place], [address], [place] tel:[phone] [facility] chornic pain (chief complaint) HLP (chief complaint) chest pain (chief complaint) Dietary surveillance and counselingChest Pain, UnspecifiedAsthmaPa in in joint involving lower leg 4 Jarrod Thomas. [address], [place], [place], [address] , [place]. [phone] Referring Provider: Maurizio [address], [place], [place], [address]. tel:[phone] OFFICE/OUTPA TIENT VISIT, [facility], [address], [place], [address], [place] tel:[phone] [facility] chronic pain (chief complaint) HLP (chief complaint) knee pain (chief complaint) sinus (chief complaint) Dietary surveillance and counselingCHRONIC PAIN NECOther and unspecified hyperlipidemiaPain in joint involving lower legSinusitis, Acute 4 Jarrod Thomas. [address], [place], [address] , [place]. tel:[phone] Referring Provider: Maurizio [address], [place], [place], [address]. tel:[phone] OFFICE/OUTPA TIENT VISIT, [facility], [address], [place], [address], [place] tel:[phone] [facility] sick (chief complaint) HLP (chief complaint) chornic pain (chief complaint) Dietary surveillance and counselingViral Infection, UnspecifiedOther and unspecified hyperlipidemiaLumba go 4 Jarrod Thomas. [address], [place], [address] , [place]. tel:[phone] Referring Provider: Maurizio [address], [place], [address]. tel:[phone] OFFICE/OUTPA TIENT VISIT, [facility], [address], [place], [place], [address], [place] tel:[phone] [facility] HLP (chief complaint) Hyperglyce adi (chief complaint) chornic pain (chief complaint) asthma (chief complaint) Dietary surveillance and counselingOther and unspecified hyperlipidemiaMetab olic SyndromeLumbagoAsth ma 4 Jarrod Thomas. [address], [place], [address] , [place]. tel:[phone] Referring Provider: William Garay, [address], [place], [place], [address]. tel:[phone] OFFICE/OUTPA TIENT VISIT, EST [facility], [address], [place], [address], [place] tel:[phone] [facility] asthma (chief complaint) GERD (chief complaint) HLP (chief complaint) chornic pain (chief complaint) Dietary surveillance and counselingAsthmaGER DOther and unspecified hyperlipidemiaLumba go 4 Jarrod Thomas. [address], [place], [address] , [place]. tel:[phone] Referring Provider: Maurizio [address], [place], [place], [address]. tel:[phone] PREV VISIT, EST, AGE 40-64 [facility], [address], [place], [place], [address], [place] tel:[phone] [facility] Physical (chief complaint) Dietary surveillance and counselingRoutine Medical ExamRoutine Medical Exam 4 Jarrod Thomas. [address], [place], [address] , [place]. [phone] Referring Provider: William Garay, [address], [place], [place], [address]. tel:[phone] OFFICE/OUTPA TIENT VISIT, EST [facility], [address], [place], [address], [place] tel:[phone] [facility] carpal tunnel (chief complaint) chornic pain (chief complaint) HLP (chief complaint) asthma (chief complaint) Dietary surveillance and counselingCarpal Tunnel SyndromeAsthmaOther and unspecified hyperlipidemiaCHRON IC PAIN NEC 4 Jarrod Thomas. [address], [place], [place], [address] , [place]. [phone] Referring Provider: Maurizio [address], [place], [place], [address]. tel:[phone] OFFICE/OUTPA TIENT VISIT, [facility], [address], [place], [place], [address], [place] tel:[phone] [facility] chornic pain (chief complaint) numbness (chief complaint) HLP (chief complaint) asthma (chief complaint) Disturbance of skin sensationLumbagoPVD with ClaudicationAsthma 4 Jarrod Thomas. [address], [place], [place], [address] , [place]. tel:[phone] Referring Provider: Maurizio [address], [place], [place], [address]. tel:[phone] OFFICE/OUTPA TIENT VISIT, [facility], [address], [place], [address], [place] tel:[phone] [facility] sinus (chief complaint) Dietary surveillance and counselingSinusitis , Acute 4 Jarrod Thomas. [address], [place], [place], [address] , [place]. tel:[phone] Referring Provider: Maurizio [address], [place], [place], [address]. tel:[phone] OFFICE/OUTPA TIENT VISIT, [facility], [address], [place], [place], [address], [place] tel:[phone] [facility] chronic pain (chief complaint) HLP (chief complaint) Dietary surveillance and counselingLumbagoPa in in joint involving lower legOther and unspecified hyperlipidemia 4 Jarrod Oquendo [address], [place], [place], [address] , [place]. tel:[phone] Referring Provider: Maurizio [address], [place], [place], [address]. tel:[phone] OFFICE/OUTPA TIENT VISIT, [facility], [address], [place], [place], [address], [place] tel:[phone] [facility] chronic pain (chief complaint) HLP (chief complaint) HTN (chief complaint) Dietary surveillance and counselingHypertens ion, UnspecifiedOther and unspecified hyperlipidemiaCHRON IC PAIN NEC 4 Jarrod Thomas. [address], [place], [place], [address] , [place]. tel:[phone] Referring Provider: [address], [place], [place], [address]. tel:[phone] OFFICE/OUTPA TIENT VISIT, [facility], [address], [place], [place], [address], [place] tel:[phone] [facility] chronic pain (chief complaint) HLP (chief complaint) tobacco (chief complaint) ear infection (chief complaint) Dietary surveillance and counselingCHRONIC PAIN NECOther and unspecified hyperlipidemiaUnspe cified otitis media 4 Jarrod Thomas. [address], [place], [address] , [place]. [phone] Referring Provider: Maurizio [address], [place], [place], [address]. tel:[phone] OFFICE/OUTPA TIENT VISIT, [facility], [address], [place], [place], [address], [place] tel:[phone] [facility] chronic pain (chief complaint) GERD (chief complaint) HLP (chief complaint) Dietary surveillance and counselingCervicalg iaHypertension, UnspecifiedOther and unspecified hyperlipidemiaGERD 4 Jarrod Thomas. [address], [place], [place], [address] , [place]. [phone] Referring Provider: Maurizio [address], [place], [place], [address]. tel:[phone] OFFICE/OUTPA TIENT VISIT, [facility], [address], [place], [place], [address], [place] tel:[phone] [facility] HLP (chief complaint) HTN (chief complaint) Chronic pain (chief complaint) anxiety (chief complaint) GERD (chief complaint) Dietary surveillance and counselingLumbagoOt her and unspecified hyperlipidemiaGERD 3 Jarrod Thomas. [address], [place], [place], [address] , [place]. [phone] Referring Provider: Maurizio [address], [place], [address]. tel:[phone] OFFICE/OUTPA TIENT VISIT, [facility], [address], [place], [place], [address], [place] tel:[phone] [facility] sick (chief complaint) hematuria (chief complaint) Dietary surveillance and counselingBronchiti s, AcuteOBSTRUCTIVE CHRONIC BRONCHITIS, WITH (ACUTE) EXACERBATIONViral Infection, UnspecifiedHEMATURI A NOS 3 Jarrod Thomas. [address], [place], [place], [address] , [place]. tel:[phone] Referring Provider: Maurizio [address], [place], [place], [address]. tel:[phone] OFFICE/OUTPA TIENT VISIT, [facility], [address], [place], [place], [address], [place] tel:[phone] [facility] chronic pain (chief complaint) HTN (chief complaint) Dietary surveillance and counselingCHRONIC PAIN NECHypertension, Unspecified 3 Jarrod Thomas. [address], [place], [place], [address] , [place]. [phone] Referring Provider: Maurizio [address], [place], [place], [address]. tel:[phone] OFFICE/OUTPA TIENT VISIT, [facility], [address], [place], [place], [address], [place] tel:[phone] [facility] chronic pain (chief complaint) ear pain (chief complaint) Dietary surveillance and counselingLumbagoHy pertension, UnspecifiedOtalgia, unspecified 3 Jarrod Thomas. [address], [place], [place], [address] , [place]. tel: [phone] Referring Provider: Maurizio [address], [place], [place], [address]. tel:[phone] OFFICE/OUTPA TIENT VISIT, [facility], [address], [place], [place], [address], [place] tel:[phone] [facility] chronic pain (chief complaint) HLP (chief complaint) asthma (chief complaint) LumbagoAsthmaHypert ension, UnspecifiedOther and unspecified hyperlipidemiaDieta ry surveillance and counseling 3 Jarrod Thomas. [address], [place], [place], [address] , [place]. tel: [phone] Referring Provider: Maurizio [address], [place], [place], [address]. tel:[phone] OFFICE/OUTPA TIENT VISIT, [facility], [address], [place], [place], [address], [place] tel:[phone] [facility] chronic pain (chief complaint) otalgia (chief complaint) HLP (chief complaint) rash (chief complaint) Dietary surveillance and counselingCHRONIC PAIN NECOtalgia, unspecifiedHyperten surya, UnspecifiedScabies 3 Jarrod Thomas. [address], [place], [place], [address] , [place]. tel:[phone] Referring Provider: Maurizio [address], [place], [place], [address]. tel:[phone] OFFICE/OUTPA TIENT VISIT, [facility], [address], [place], [place], [address], [place] tel:[phone] [facility] chronic pain (chief complaint) lung nodule (chief complaint) HLP (chief complaint) ear pain (chief complaint) Dietary surveillance and counselingCHRONIC PAIN NECAsthmaOtalgia, unspecified 3 Jarrod Thomas. [address], [place], [place], [address] , [place]. tel:[phone] Referring Provider: William Garay, [address], [place], [place], [address]. tel:[phone] OFFICE/OUTPA TIENT VISIT, [facility], [address], [place], [place], [address], [place] tel:[phone] [facility] chronic pain (chief complaint) epipen (chief complaint) Dietary surveillance and counselingCHRONIC PAIN NECLumbagoCervicalg ia 3 Jarrod Thomas. [address], [place], [place], [address] , [place]. tel:[phone] Referring Provider: Maurizio [address], [place], [place], [address]. tel:[phone] OFFICE/OUTPA TIENT VISIT, [facility], [address], [place], [place], [address], [place] tel:[phone] [facility] HLP (chief complaint) vitamin d (chief complaint) HTN (chief complaint) lung nodule (chief complaint) Dietary surveillance and counselingOther and unspecified hyperlipidemiaUnspe cified vitamin d deficiencyOther diseases of lung, not elsewhere classified 3 Jarrod Thomas. [address], [place], [address] , [place]. tel:[phone] Referring Provider: Maurizio [address], [place], [address]. tel:[phone] PREV VISIT, NEW, AGE 40-64 [facility], [address], [place], [place], [address], [place] tel:[phone] [facility] PHysical (chief complaint) Dietary surveillance and counselingRoutine Medical ExamRoutine Medical Exam 3 Jarrod Thomas. [address], [place], [place], [address] , [place]. tel:[phone] Referring Provider: Maurizio [address], [place], [place], [address]. tel:[phone] Family History Family Member Type Diagnosis Age At Onset Sister Problem (finding) thyroid Mother Problem (finding) bleeding stomach ulcer Father Problem (finding) Unknown Disease Payers Payer name Insurance type Covered democrat ID Rizwan jaramillo(s) No Information Social History [...] now Instructions Date Instruction Additional Infor seven Special diet education Related t o Dietary [...]
--- OUTSIDE RECORDS SUMMARY | 2025-01-05 11:18 | XMS_ITS | Encounter Summary ---
Author Organization [facility] Address [address] [place] [address] Care Team Providers Care Aeronautical Engineering Teacher Name Role Phone Asa Mcnamara MD Unavailable [phone] Neva Holden MD Primary Care Provider [phone] Encounter Details Date Type Department Care Team (Late st Contact Info) Description 07/03/2020 Abstract [facility] at [address] [address] Rafael Thakur [place] Social History Tobacco Use Types Packs/Day Years Used Date Smoking Tobacco: Every Day Cigarettes Smokeless Tobacco: Never Comments:1 pk day Alcohol Use Standard Drinks/Week Comments No 0 (1 standard drink = 0.6 oz pur e alcohol) Comments Unknown Sex and Gender Information Value Date Recorded Sex Assigned at Female 12/06/2019 3:36 PM TERRAZZO LAYER Legal Sex Female 5:20 PM CDT Gender Identity Female 12/06/2019 3:36 PM TERRAZZO LAYER Sexual Orientation Straight 12/06/2019 3: 36 PM TERRAZZO LAYER Occupation Industry Job Start Date Job [...] filedocumented in this encounter Care Teams Aeronautical Engineering Teacher Relationship Specialty Start Date End Date Neva Holden MD [facility] [address] [place] [address] PCP - General FAMILY PRACTICE 02/14/20 Asa Mcnamara MD [facility]. [address] [place] [address] [place] Co[employer]ulating Bath Mixer CARDIOVASCULAR DISEASE 05/15/16 documented as of this encounter
--- OUTSIDE RECORDS SUMMARY | 2025-01-05 11:18 | XMS_ITS | Encounter Summary ---
Author Organization [facility] Address [address] [place] [address] Care Team Providers Care Poultry Breeder Name Role Phone SullivanDane gonzalez DO Primary Care Provider [phone] Asa Mcnamara MD Unavailable [phone] Deisi Andrews MD Primary Care Provider [phone] Heber Adorno MD Primary Care Provider Unavailable Deisi Andrews MD Primary Care Provider [phone] Neva Holden MD Primary Care Provider [phone] Deisi Andrews MD Primary Care Provider [phone] Neva Holden MD Primary Care Provider [phone] Encounter Details Date Type Department Care Team (Late st Contact Info) Description 05/21/2016 Abstract [facility] AT [address] [address] Rafael Thakur MA Social History Tobacco Use Types Packs/Day Years Used Date Smoking Tobacco: Every Day Cigarettes Smokeless Tobacco: Never Alcohol Use Standard Drinks/Week Comments No 0 (1 standard drink = 0.6 oz pur e alcohol) Comments Unknown Sex and Gender Information Value Date Recorded Sex Assigned at Female 12/06/2019 3:36 PM LIMO DRIVER Legal Sex Female 5:20 PM CDT Gender Identity Female 12/06/2019 3:36 PM LIMO DRIVER Sexual Orientation Straight 12/06/2019 3: 36 PM LIMO DRIVER Occupation Industry Job Start Date Job [...] on filedocumented in this encounter Care Teams Poultry Breeder Relationship Specialty Start Date End Date Dane Sullivan DO PCP - General FAMILY PRACTICE 05/15/16 02/11/17 Deisi Andrews MD [address] [place] [address] PCP - General FAMILY PRACTICE 02/13/17 03/10/17 Heber Adorno MD PCP - General 03/11/17 06/14/17 Deisi Andrews MD [address] [place] [address] PCP - General FAMILY PRACTICE 06/15/17 10/14/19 Neva Holden MD [facility] [address] PCP - General FAMILY PRACTICE 10/15/19 12/05/19 Deisi Andrews MD [address] [place] [address] PCP - General FAMILY PRACTICE 12/06/19 02/13/20 Neva Holden [facility] [address] [place] [address] PCP - General FAMILY PRACTICE 02/14/20 Asa Mcnamara MD [facility] [place] [address] [place] [address] Stephen Maternity Floor Supervisor CARDIOVASCULAR DISEASE 05/15/16 documented as of this encounter
--- OUTSIDE RECORDS SUMMARY | 2025-01-05 11:18 | XMS_ITS | Patient Health Summary ---
Author Organization [facility] Address [address] [place] [address] Care Team Providers Care Secondary Art Teacher Name Role Phone Matti Balderas MD Primary Care Provider [phone] Note from [facility],non-owned Affiliates and Associated Physician Practices is amultiple site organization consisting of ambulatory clinics and hospital sitesin [place], [place], [place] and [place]. This disclosure is being madepursuant to the Care Everywhere program and may not contain all information available regarding this patient. Last updated 18.[facility] Allergies * Bee Venom(Swelling) -Medium Criticality * [...] evening meal * vitamin D, ergocalciferol, (DRISDOL) 30712 UNITS capsule(Started 01/29/2019) Take 1 (one) capsule [...] Problem Noted Date Diagnosed Date CAD in [place] 10/24/2020 MDD (recurrent major depressive [...] Comments Blood Pressure 142/84 12/19/2024 9:31 AM LEAD PROGRAMMER ANALYST Pulse 88 12/19/2024 9:31 AM LEAD PROGRAMMER ANALYST Temperature 36.5 C (97.7 F) 12/19/2024 9:31 AM LEAD PROGRAMMER ANALYST Respiratory Rate 18 10/27/2024 2:11 PM LEAD PROGRAMMER ANALYST Oxygen Saturation 96% 12/19/2024 9:31 AM LEAD PROGRAMMER ANALYST Inhaled Oxygen Concentration 21% 06/21/2024 8 :20 AM CDT Weight 77.6 kg (171 lb) 12/19/2024 9:31 AM LEAD PROGRAMMER ANALYST Height 160 cm (5' 3 ) 10/27/2024 2:11 PM LEAD PROGRAMMER ANALYST Body Mass Index 30.29 10/27/2024 2:11 PM LEAD PROGRAMMER ANALYST Medical Devices Implanted Type Area Home Care Provider Device Identifier Shelf Expiration Date Model / Serial / Lot Stent Trchbr 10mm 7fr 38mm 80cm Cvr Cath Implanted:Qty: 1 on 09/04/2020 by Kendrick Tao MD at [facility] N/A: Abdomen [employer] 04/05/2023 [id number] / / [id number] Stent Trchbr 8mm 7fr 38mm 80cm Cvr Cath Implanted:Qty: 1 on 09/04/2020 by Kendrick Tao MD at [facility] N/A: Abdomen [employer] 05/22/2023 [id number] / / [id number] Procedures * URINALYSIS AUTO - POINT OF [...] of urinary bladder, unspecified site (HCC) * OH URETERAL REFLUX STUDY(Performed 06/21/2024) Performed for Malignant neoplasm of urinary bladder, unspecified site (HCC) * OH CYSTO/URETERO/PYELOSCOPY W/BX(Performed 06/21/2024) Performed for Malignant neoplasm [...] TISSUE(Performed 01/17/2024) Performed for Other hydronephrosis * OH CYSTOURETHROSCOPY,URETER CATHETER(Performed 01/17/2024) Performed for Other hydronephrosis * GLUCOSE - POINT OF CARE(Performed 01/17/2024) * LAB RESULTS ORDER(Performed 01/12/2024) * FL CYSTO SURGERY(Performed 12/07/2023) Performed for Malignant neoplasm of urinary bladder, unspecified site (HCC) * GLUCOSE - POINT OF CARE(Performed 12/07/2023) * CYTOLOGY NON-JAVASCRIPT PROGRAMMER PANEL (STL)(Performed 12/07/2023) Performed for Malignant neoplasm of urinary bladder, unspecified site (HCC) * PATHOLOGY TISSUE(Performed 12/07/2023) Performed for Malignant neoplasm of urinary bladder, unspecified site (HCC) * LARYNGEAL MASK AIRWAY(Performed 12/07/2023) * OH CYSTO/URETERO/PYELOSCOPY, DX(Performed 12/07/2023) Performed for Malignant neoplasm of urinary bladder, unspecified site (HCC) * OH CYSTOURETHROSCOPY,URETER CATHETER(Performed 12/07/2023) Performed for Malignant neoplasm of urinary bladder, unspecified site (HCC) * OH CYSTOURETHROSCOPY,FULGUR 2-5CM LESN(Performed 12/07/2023) Performed for Malignant [...] CREATININE - POCT INTERFACED(Performed 10/22/2023) * CYTOLOGY NON-JAVASCRIPT PROGRAMMER(Performed 06/02/2023) * CYTOLOGY NON-JAVASCRIPT PROGRAMMER PANEL(Performed 06/02/2023) Performed for Malignant neoplasm of [...] urinary bladder, unspecified site (HCC) * CYTOLOGY NON-JAVASCRIPT PROGRAMMER(Performed 08/14/2022) * CYTOLOGY NON-JAVASCRIPT PROGRAMMER PANEL(Performed 08/14/2022) Performed for Malignant neoplasm of urinary bladder, unspecified site (HCC) * URINALYSIS AUTO - POINT OF CARE (AMB) [facility](Performed 08/14/2022) Performed for Malignant neoplasm of urinary bladder, unspecified site (HCC) * CARDIAC RHYTHM STRIP ORDER(Performed 03/26/2022) * GLUCOSE - POINT OF CARE(Performed 03/23/2022) * PATHOLOGY TISSUE EXAM (STL)(Performed 03/23/2022) Performed for Diagnosis unknown * ENDOTRACHEAL TUBE NOTE(Performed 03/23/2022) * OH CYSTO/URETERO/PYELOSCOPY, DX(Performed 03/23/2022) Performed for Diagnosis unknown [...] 12/02/2021) Performed for 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) * RVBHU-1-WQCTEKQTCTS BLOOD(Performed 12/02/2021) Performed for Pulmonary emphysema, unspecified emphysema type (HCC) * AOQFX-5-FGSSYZFAJEK BLOOD PHENOTYPING PANEL(Performed 12/02/2021) Performed for Pulmonary emphysema, unspecified emphysema type ([facility]) * LIPID PROFILE(Performed 12/02/2021) Performed for 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 ([facility]) * OPH OCT TEST [facility](Performed 12/02/2021) Performed for Blurred vision, bilateral * URINE DRUG SCREEN IMMUNOASSAY(Performed 10/06/2021) Performed for MDD (recurrent major depressive disorder) in remission ([facility]) * HEMOGLOBIN A1C(Performed 10/06/2021) Performed for MDD (recurrent major depressive disorder) in remission ([facility]) * VITAMIN D 25-HYDROXY(Performed 10/06/2021) Performed for MDD (recurrent major depressive disorder) in remission ([facility]) * COMPREHENSIVE METABOLIC PANEL(Performed 10/06/2021) Performed for MDD (recurrent major depressive disorder) in remission ([facility]) * CBC W AUTO DIFFERENTIAL(Performed 10/06/2021) Performed for MDD (recurrent major depressive disorder) in remission ([facility]) * TSH REFLEX FREE T4(Performed 10/06/2021) Performed for MDD (recurrent major depressive disorder) in remission ([facility]) * BLOOD GASES ART+COOX POCT(Performed 10/06/2021) * PFT OXYGEN DESATURATION STUDY(Performed 10/06/2021) Performed for Acute exacerbation of chronic obstructive pulmonary disease (COPD) ([facility]), Tobacco dependence, CATHERINE (obstructive sleep apnea) * SIX MINUTE WALK(Performed 10/06/2021) Performed for Acute exacerbation of chronic obstructive pulmonary disease (COPD) ([facility]), Tobacco dependence, CATHERINE (obstructive sleep apnea) * COMPLETE PFT W/WO BRONCHODILATOR(Performed 10/06/2021) Performed for Acute exacerbation of chronic obstructive pulmonary disease (COPD) ([facility]), Tobacco dependence, CATHERINE (obstructive sleep apnea) * LIPID PROFILE(Performed 09/30/2021) Performed for Hyperlipidemia, unspecified hyperlipidemia type * LDL CHOLESTEROL DIRECT(Performed 03/20/2021) Performed for PVD (peripheral vascular disease) ([facility]), Coronary artery disease involving [place] heart without angina pectoris, unspecified vessel or lesion type, Hyperlipidemia, unspecified hyperlipidemia type * LIPID PROFILE(Performed 02/20/2021) Performed for 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 ([facility]) * LAB RESULTS ORDER(Performed 11/02/2020) * CARDIAC PROCEDURE ORDER(Performed 11/02/2020) * CCL CARDIAC CATH LEFT(Performed 10/24/2020) Performed for Stable angina pectoris * GLUCOSE - POINT OF CARE(Performed 10/24/2020) * VAS CAROTID DUPLEX BILATERAL(Performed 10/22/2020) Performed for Bilateral carotid artery stenosis * VAS ARTERIAL ANKLE ARM INDEX(Performed 10/22/2020) Performed for PAD (peripheral artery disease) ([facility]) * VAS DILEEP ABD DOPPLER AO IVC ILIAC(Performed 10/22/2020) Performed for PAD (peripheral artery disease) ([facility]) * PT-INR(Performed 10/21/2020) Performed for [...] 09/04/2020) Performed for PAD (peripheral artery disease) ([facility]) * GLUCOSE - POINT OF CARE(Performed 09/04/2020) * BASIC METABOLIC PANEL (CALCIUM TOTAL)(Performed 09/04/2020) Performed for PAD (peripheral artery disease) ([facility]) * CBC W/O DIFFERENTIAL(Performed 09/04/2020) Performed for PAD (peripheral artery disease) ([facility]) * VAS ARTERIAL ANKLE ARM INDEX(Performed 07/10/2020) Performed for Peripheral vascular disease with claudication ([facility]) * VAS DILEEP ABD DOPPLER AO IVC ILIAC(Performed 07/10/2020) Performed for Peripheral vascular disease with claudication ([facility]) * OPH OCT TEST [facility](Performed [...] OF CARE (AMB) [facility] (10/27/2024 2:13 PM LEAD PROGRAMMER ANALYST) Only the most recent of13 resultswithin the time period is included. Glucose UA neg [facility] [address] Bilirubin UA POCT neg [facility] [address] Ketones UA POCT neg [facility] [address] Specific [place] UA 1.[address] [facility] [address] Blood Urine POCT neg [facility] [address] pH UA 5.5 [facility] [address] Protein UA neg [facility] [address] Urobilinogen UA 0.2 [facility] [address] Nitrite UA neg [facility] [address] WBC UA neg [facility] [address] Urine URINE / Unknown 10/27/2024 2 :13 PM LEAD PROGRAMMER ANALYST Jose Oliver MD LAB - POINT OF CAR E ORDERABLES [facility] [address] [place] [address], [facility] [phone] * CULTURE URINE (09/08/2024) Only the most recent of4 resultswithin the time period is included. Culture [facility] Comment: CULTURE, URINE, ROUTINE Micro Number: [id number] Test Status: Final Specimen Source: Urine Specimen Quality: Adequate Result: Mixed genital unruly isolated. These superficial bacteria are not indicative of a urinary tract infection. No further organism identification is warranted on this specimen. If clinically indicated, recollect clean-catch, mid-stream urine and transfer immediately to Urine Culture Transport Tube. Test Performed at: [id number] [id number] GISELE JUSTICE MD 09/08/2024 09/09/2024 1:3 2 AM CDT Melissa Rolon SPLICING SUPERVISOR-BANJO REPAIRER LAB - MICROBIOL OGY ORDERABLES [facility] [address] [place] [address] * (ABNORMAL) URINALYSIS REFLEX TO MICROSCOPIC NO CULTURE (06/28/2024 3:18 PM CDT) Color UA Red(A) Straw, Yellow 06/28/2024 3:51 PM [facility] Clarity UA Slt Cloudy(A) Clear 06/28/2024 3:51 PM [facility] Specific [place] UA 1.028 1.005 - 1.030 06/28/2024 3:51 PM [facility] pH UA 6.0 5.0 - 8.0 pH 06/28/2024 3:51 PM [facility] Protein UA 1+(A) Negative 06/28/2024 3:51 PM [facility] Glucose UA Negative Negative 06/28/2024 3:51 PM [facility] Ketone UA Negative Negative 06/28/2024 3:51 PM [facility] Bilirubin UA Negative Negative 06/28/2024 3:51 PM [facility] Blood UA 3+(A) Negative 06/28/2024 3:51 PM [facility] Nitrite UA Negative Negative 06/28/2024 3:51 PM [facility] Leukocyte Esterase Trace(A) Negative 06/28/2024 3:51 PM [facility] Urobilinogen UA Negative Negative mg/dL 06/28/2024 3:51 PM [facility] RBC UA >100(A) None Seen, 0-2, 3-5 /HPF 06/28/2024 3:51 PM [facility] WBC UA 0-5 None Seen, 0-5 /HPF 06/28/2024 3:51 PM [facility] Squamous Epithelial Cells UA 0-2 None Seen, 0-2, 3-5 /HPF 06/28/2024 3:51 PM [facility] Urine URINE SPECIMEN OBTAINED BY CLEAN CATCH PROCEDURE / Unknown Collection / Unknown 06/28/2024 3:18 PM CDT 06/28/2024 3:22 PM CDT Narrative [facility] - 06/28/2024 3:51 PM CDT Martir Choi MD LAB - URINALYSIS ORD ERABLES Performing Organization Address [facility] Co de Phone Number [address] [address], [facility] [phone] * PT-INR [facility] (06/28/2024 3:17 PM CDT) Only the most recent of2 resultswithin the time period is included. PT 13.1 12.1 - 14.8 Seconds 06/28/2024 3:47 PM CDT [facility] INR 1.0 See Comment 06/28/2024 3:47 PM CDT [facility] Comment:The suggested therap eutic range for standard coumadin (warfarin) therapy is an INR of 2.0-3.0. For high-risk patients (Mechanical Mitral Valve Prosthesis, etc.), the suggested prophylactic therapeutic range is an INR of 2.5-3.5. Blood BLOOD SPECIMEN / Unknown Venipuncture / Unknown 06/28/2024 3:17 PM CDT 06/28/2024 3:26 PM CDT Martir Choi MD LAB - COAGULATION OR DERABLES Performing Organization Address [facility] Co de Phone Number [address] [address], [facility] [phone] * (ABNORMAL) CBC W AUTO DIFFERENTIAL (06/28/2024 3:17 PM CDT) Only the most recent of4 resultswithin the time period is included. WBC 12.1(H) 4.0 - 10.7 x10E9/L 06/28/2024 3:33 PM CDT [facility] RBC Count 5.43(H) 3.90 - 5.20 x10E12/L 06/28/2024 3:33 PM CDT [facility] Hemoglobin 15.3 11.9 - 15.8 g/dL 06/28/2024 3:33 PM [facility] Hematocrit 46.0 34.8 - 46.1 % 06/28/2024 3:33 PM [facility] MCV 84.7 80.0 - 98.0 fL 06/28/2024 3:33 PM [facility] MCH 28.2 26.7 - 33.6 pg 06/28/2024 3:33 PM [facility] MCHC 33.3 31.7 - 36.3 g/dL 06/28/2024 3:33 PM [facility] RDW-CV 13.0 11.3 - 14.8 % 06/28/2024 3:33 PM [facility] Platelet Count 218 150 - 420 x10E9/L 06/28/2024 3:33 PM [facility] MPV 9.9 7.8 - 11.4 fL 06/28/2024 3:33 PM [facility] Neutrophil % 65.5 41.0 - 74.0 % 06/28/2024 3:33 PM [facility] Lymphocyte % 24.0 17.0 - 47.0 % 06/28/2024 3:33 PM [facility] Monocyte % 6.7 3.0 - 11.0 % 06/28/2024 3:33 PM [facility] Eosinophil % 3.1 0.0 - 7.0 % 06/28/2024 3:33 PM [facility] Basophil % 0.4 0.0 - 1.6 % 06/28/2024 3:33 PM [facility] Immature Granulocytes % 0.3 0.0 - 1.0 % 06/28/2024 3:33 PM [facility] Neutrophil Absolute 7.90(H) 1.60 - 7.50 x10E9/L 06/28/2024 3:33 PM [facility] Lymphocyte Absolute 2.90 1.00 - 4.40 x10E9/L 06/28/2024 3:33 PM [facility] Monocyte Absolute 0.81 0.15 - 1.00 x10E9/L 06/28/2024 3:33 PM [facility] Eosinophil Absolute 0.38 0.00 - 0.60 x10E9/L 06/28/2024 3:33 PM [facility] Basophil Absolute 0.05 0.00 - 0.13 x10E9/L 06/28/2024 3:33 PM [facility] Blood BLOOD SPECIMEN / Unknown Venipuncture / Unknown 06/28/2024 3:17 PM CDT 06/28/2024 3:26 PM CDT Martir Choi MD LAB - HEMATOLOGY ORD ERABLES [facility] [address] [place] [address], [facility] [phone] * BASIC METABOLIC PANEL (CALCIUM TOTAL) (06/28/2024 3:17 PM CDT) Only the most recent of5 resultswithin the time period is included. BUN 15 7 - 26 mg/dL 06/28/2024 3:51 PM [facility] Creatinine 0.69 0.56 - 0.96 mg/dL 06/28/2024 3:51 PM [facility] Sodium 138 136 - 145 mmol/L 06/28/2024 3:51 PM [facility] Potassium 4.0 3.5 - 4.5 mmol/L 06/28/2024 3:51 PM [facility] Chloride 103 98 - 107 mmol/L 06/28/2024 3:51 PM [facility] CO2 26 22 - 29 mmol/L 06/28/2024 3:51 PM [facility] Glucose 102 70 - 115 mg/dL 06/28/2024 3:51 PM [facility] Calcium 9.4 8.4 - 10.2 mg/dL 06/28/2024 3:51 PM [facility] Anion Gap 9 6 - 16 06/28/2024 3:51 PM [facility] BUN/Creatinine Ratio 22 7 - 23 06/28/2024 3:51 PM [facility] Osmolality Calculated 287 275 - 295 mOsm/kg 06/28/2024 3:51 PM CDT [facility] eGFR by CKD-EPI >90 >=90 mL/min/1.7 3 m2 06/28/2024 3:51 PM CDT [facility] Blood BLOOD SPECIMEN / Unknown Venipuncture / Unknown 06/28/2024 3:17 PM CDT 06/28/2024 3:26 PM CDT Martir Choi MD LAB - CHEMISTRY BASSAM CONTRERAS Performing Organization Address City/[facility]/ZIP Co de Phone Number [facility] [address] [place] [address], [facility] [phone] * [place] Cysto Surgery (06/21/2024 9:46 PM CDT) Only the most recent of3 resultswithin the time period is included. Narrative [facility] - 06/21/2024 9:46 PM CDT Fluoroscopy was used for this exam in the OR. Please see the Operative report. Jose Oliver MD FLUOROSCOPY ORDERA SUNIL Performing Organization Address [facility] Co de Phone Number [facility] * PATHOLOGY TISSUE (06/21/2024 10:01 AM CDT) Only the most recent of4 resultswithin the time period is included. Case Report Surgical Pathology Report Case: [id number] Authorizing Provider: Jose Oliver MD Collected: 06/21/2024 10:01 AM Ordering Location: [facility] Received: 06/21/2024 01:25 PM Pathologist: [...] carcinoma in situ 06/23/2024 8:22 AM [facility] Clinical History The patient is a 63 year old woman with history of bladder cancer, now with 2 areas of mild bleeding and mild inflammation noted that were biopsied along the right bladder floor and posterior lateral wall. 06/23/2024 8:22 AM [facility] Gross Description The requisition [...] cassette B1. DF 06/23/2024 8:22 AM [facility] Pathologist Location at [facility] 06/23/2024 8:22 AM [facility] Disclaimer The performance characteristics [...] attending (teaching) pathologist. 06/23/2024 8:22 AM [facility] Embedded Images 06/23/2024 8:22 AM [facility] Biopsy, Excision URINARY BLADDER [...] - PATHOLOGY/CY TOLOGY ORDERABLES Performing Organization Address City/[facility] Co de Phone Number [facility] [address] [place] [address], [facility] [phone] * (ABNORMAL) GLUCOSE - POINT OF CARE (06/21/2024 8:10 AM CDT) Only the most recent of12 resultswithin the time period is included. Glucose WB/POC 149(H) 70 - 115 mg/dL 06/21/2024 8:47 AM CDT [facility] Specimen Type Venous 06/21/2024 8:47 AM CDT [facility] Blood BLOOD SPECIMEN / Unknown 06/21/2024 8:10 AM CDT 06/21/2024 8:47 AM CDT Jose Oliver MD LAB - POINT OF CAR E ORDERABLES Performing Organization Address [facility] Co de Phone Number [facility] [address] [phone], [facility] [phone] * PTT [facility] (06/21/2024 8:07 AM CDT) APTT 26.7 23.0 - 38.4 Seconds 06/21/2024 8:35 AM CDT [facility] Comment:Suggested therapeuti c range for full dose I.V. unfractionated heparin therapy for venous thromboembolism is 71 to 109 seconds. Blood BLOOD SPECIMEN / Unknown Venipuncture / Unknown 06/21/2024 8:07 AM CDT 06/21/2024 8:09 AM CDT Jose Oliver MD LAB - COAGULATION ORDERABLES [facility] [address] [place] [address], [facility] [phone] * LAB RESULTS ORDER (06/07/2024) Only the [...] kidney. > Dictated by Margi Brooke MD (Insulation Helper) 04/20/2024 9:43 AM ISamira DO have personally reviewed and interpreted this examination/study. > Interpreting Provider: Samira Tariq DO on 04/20/2024 3:39 PM Narrative 04/20/2024 3:39 PM CDT PROCEDURE: NM RENAL SCAN W DRUG, DATE/TIME OF EXAM: 04/20/2024 9:58 AM, LOCATION [facility] INDICATION: N13.39: Other hydronephrosis ADDITIONAL [...] DATE/TIME OF EXAM: 04/20/2024 9:58 AM, LOCATION [facility] INDICATION: N13.39: Other hydronephrosis ADDITIONAL [...] kidney. > Dictated by Margi Brooke MD (Insulation Helper) 04/20/2024 9:43 AM ISamira DO have personally reviewed and interpreted this examination/study. > Interpreting Provider: Samira Tariq DO on 04/20/2024 3:39 PM Jose Oliver MD NM ORDERABLES * CYTOLOGY NON-JAVASCRIPT PROGRAMMER PANEL ([facility]) (12/07/2023 8:21 AM LEAD PROGRAMMER ANALYST) Case Report Medical Cytology Report Case: [id number] Authorizing Provider: Jose Oliver MD Collected: 12/07/2023 08:21 AM Ordering Location: [facility] Received: 12/07/2023 02:59 PM Pathologist: Jose Rico MD Specimen: Body Fluid , left ureteral 12/09/2023 12:32 PM [facility] Specimen Adequacy Adequate cellularity for evaluation. 12/09/2023 12:32 PM [facility] Final Diagnosis Left ureter, cytology from cystoscopy: - Atypical urothelial cells 12/09/2023 12:32 PM [facility] Clinical History The patient is [...] no obvious papillary mass. 12/09/2023 12:32 PM [facility] Gross Description 1 pap stained cytospin slide from 10cc pink fluid 12/09/2023 12:32 PM [facility] Microscopic Description Microscopic examination substantiates the final diagnosis. 12/09/2023 12:32 PM [facility] Pathologist Location at [facility] 12/09/2023 12:32 PM [facility] Disclaimer The performance characteristics of all immunohistochemical and indirect immunofluorescence stains (if any) cited in this report were determined by the Histopathology Laboratory of [facility]. Some of these tests rely on the use of analyte-specific reagents and are subject to specific labeling requirements by the [place] Food and Drug Administration. Such tests were developed by the Histology Laboratory of [facility] and have not been cleared or [...] the attending (teaching) pathologist. 12/09/2023 12:32 PM LEAD PROGRAMMER ANALYST [facility] Embedded Images 12/09/2023 12:32 PM LEAD PROGRAMMER ANALYST [facility] Pathology/Cytolo gy BODY FLUID SPECIMEN / Unknown Collection / Unknown 12/07/2023 8:21 AM LEAD PROGRAMMER ANALYST 12/07/2023 2:59 PM LEAD PROGRAMMER ANALYST Jose Oliver MD LAB - PATHOLOGY/CY TOLOGY ORDERABLES Performing Organization Address City/[facility] Co de Phone Number [facility] [address] [phone] * LARYNGEAL MASK AIRWAY (12/07/2023 7:47 AM LEAD PROGRAMMER ANALYST) Narrative Jr. Jamey Rodriguez Anes Asst - 12/07/2023 7:47 AM LEAD PROGRAMMER ANALYST Jr. Jamey Rodriguez Anes Asst 12/07/2023 7:47 [...] HEMOGLOBIN A1C [IN-HOUSE TEST] (11/22/2023 10:36 AM LEAD PROGRAMMER ANALYST) Only the most recent of2 resultswithin the time period is included. Hemoglobin A1c 6.4(H) <=5.6 % 11/22/2023 12:05 PM [facility] Estimated Average Glucose 137 mg/dL 11/22/2023 12:05 PM [facility] Comment: HbA1c Interpretation: Normal : < 5.7% Pre-diabetes: 5.7-6.4% Diabetes: Equal to or greater than 6.5% Test results diagnostic of diabetes should be repeated for confirmation. Treatment target values recommended by ADA and other clinical organizations should be used to evaluate metabolic control in patients. Reference: [place] Diabetes Association, Standards of Care in Diabetes -2020 In patients 70 years and older consider HbA1c target range of 7.0-7.5% (Reference: Montez Rosas et al. JAMDA. 2012) The Sebia assay for the measurement of HbA1c is a National Glycohemoglobin Standardization Program (NGSP) certified method. Blood BLOOD SPECIMEN WITH EDTA / Unknown Lab Venipuncture / Unknown 11/22/2023 10:36 AM LEAD PROGRAMMER ANALYST 11/22/2023 10:42 AM LEAD PROGRAMMER ANALYST Jasmin Moore SPLICING SUPERVISOR-BANJO REPAIRER LAB - CHEMISTRY ORDERABLES [facility] [address] [place] [phone], [facility] [phone] * CBC W/O DIFFERENTIAL (11/22/2023 10:36 AM [facility]) Only the most recent of2 resultswithin the time period is included. Pathologist [facility] WBC 9.9 4.0 - 10.7 x10E9/L 11/22/2023 10:54 AM [facility] RBC Count 4.94 3.90 - 5.20 x10E12/L 11/22/2023 10:54 AM [facility] Hemoglobin 13.6 11.9 - 15.8 g/dL 11/22/2023 10:54 AM [facility] Hematocrit 40.8 34.8 - 46.1 % 11/22/2023 10:54 AM [facility] MCV 82.6 80.0 - 98.0 fL 11/22/2023 10:54 AM [facility] MCH 27.5 26.7 - 33.6 pg 11/22/2023 10:54 AM [facility] MCHC 33.3 31.7 - 36.3 g/dL 11/22/2023 10:54 AM [facility] RDW-CV 14.1 11.3 - 14.8 % 11/22/2023 10:54 AM [facility] Platelet Count 260 150 - 420 x10E9/L 11/22/2023 10:54 AM [facility] MPV 10.1 7.8 - 11.4 fL 11/22/2023 10:54 AM [facility] Blood BLOOD SPECIMEN / Unknown Lab Venipuncture / Unknown 11/22/2023 10:36 AM LEAD PROGRAMMER ANALYST 11/22/2023 10:42 AM [facility] Jasmin Moore SPLICING SUPERVISOR-BANJO REPAIRER LAB - HEMATOLOGY ORDERABLES Performing Organization Address City/State/[facility] Co de Phone Number [facility] [address] [place] [phone], [facility] [phone] * CT UROGRAM (10/22/2023 10:10 AM LEAD PROGRAMMER ANALYST) Anatomical Region Laterality Modality Abdomen, Pelvis Computed Tomogra phy 10/22/2023 10:3 5 AM LEAD PROGRAMMER ANALYST Impressions 10/22/2023 10:45 AM LEAD PROGRAMMER ANALYST IMPRESSION: 1. An infiltrative bladder mass on [...] 10/22/2023 10:45 AM Narrative 10/22/2023 10:45 AM LEAD PROGRAMMER ANALYST PROCEDURE: CT UROGRAM DATE/TIME OF EXAM: 10/22/2023 [...] upper quadrant and adjacent to the spleen [id number] mm in maximum dimension. The adrenal glands, [...] CREATININE - POCT INTERFACED (10/22/2023 9:03 AM LEAD PROGRAMMER ANALYST) Creatinine POCT 0.88 0.70 - 1.20 mg/dL 10/22/2023 9:14 AM LEAD PROGRAMMER ANALYST [facility] eGFR 75(L) >=90 mL/min/1.7 3 m2 10/22/2023 9:14 AM LEAD PROGRAMMER ANALYST [facility] Blood BLOOD SPECIMEN / Unknown 10/22/2023 9:03 AM LEAD PROGRAMMER ANALYST 10/22/2023 9:14 AM LEAD PROGRAMMER ANALYST Jose Oliver MD LAB - POINT OF CAR E ORDERABLES [facility] [address] [place] [address] * CYTOLOGY NON-JAVASCRIPT PROGRAMMER (06/02/2023 12:00 PM CDT) Only the most recent of2 resultswithin the time period is included. A Source Bladder wash [facility] A Gross Description [facility] Comment: The specimen is received with multiple patient identifier(s), labeled bladder wash and consists of 20 cc(s) of yellow fluid. One ThinPrep slide prepared and stained with Papanicolaou stain. Gross exam(s) performed at: [facility] [address] [address] Recreation Facilities Supervisor: MD Ralph PADRON Diagnosis [facility] Comment: Atypical cells present of undetermined significance. Red blood cells present. Atypical urothelial cells present. Suggest clinically appropriate follow up. NO COLLECTION DATE RECEIVED. WE HAVE USED THE DATE THE SPECIMEN WAS RECEIVED BY THIS LABORATORY THE COLLECTION DATE. IF THIS IS INCORRECT, PLEASE CONTACT CLIENT SERVICES. PHONE NUMBER: [phone] Test Performed at: [facility] [address] [address] TERE KO MD 05/29/2023 1:4 4 AM CDT Jose Oliver MD LAB - PATHOLOGY/AIDAN EMERSONOGY ORDERABLES Performing Organization Address [facility] [place] [address] * CYTOLOGY NON-JAVASCRIPT PROGRAMMER PANEL (06/02/2023 12:00 PM CDT) Only the most recent of2 resultswithin the time period is included. Clinical Information [facility] Comment: Malignant neoplasm of urinary bladder, unspecified site Pathologist [facility] Comment: Elbert Chawla M.D., Board Certified in Anatomic Pathology and Clinical Pathology [phone] (electronic signature) Report Notes [facility] Comment: Esars portions of this case have been reviewed by one or more pathologists. Test Performed at: [facility] [address] [address] TERE KO MD Pathology/Cytolog y 05/29/2023 1:44 AM CDT Jose Oliver MD LAB - PATHOLOGY/AIDAN EMERSONOGRocky ORDERABLES Performing Organization Address [facility] [place] [address] * ETT LINE PERFORMABLE (01/18/2023 9:30 AM LEAD PROGRAMMER ANALYST) Narrative Jayy Zheng Anes Asst - 01/18/2023 9:30 AM LEAD PROGRAMMER ANALYST Jayy Zheng Anes Asst 01/18/2023 9:31 AM Endotracheal Tube Placement: Patient Location: OR. Intubation Event Date/Time: 01/18/2023 9:09 AM Procedure: intubation ([id number]). Procedure Section: Sedation: under general anesthesia. Indications [...] * LARYNGEAL MASK AIRWAY (01/18/2023 9:28 AM LEAD PROGRAMMER ANALYST) Narrative Jayy Zheng Anes Asst - 01/18/2023 9:28 AM LEAD PROGRAMMER ANALYST Jayy Zheng Anes Asst 01/18/2023 9:39 AM [...] CDT) Case Report Surgical Pathology Report Case: [id number] Authorizing Provider: Jose Oliver MD Collected: 03/23/2022 08:11 AM Ordering Location: [facility] INTRAOP Received: 03/23/2022 08:51 AM Pathologist: Kenan Maria MD Specimen: Bladder Mass, BLADDER TUMOR 03/24/2022 4:30 PM [facility] Final Diagnosis Urinary bladder, transurethral resection of bladder tumor: 1. Negative for malignancy 2. Acute and chronic inflammation, fibrosis, and dystrophic calcification consistent with biopsy site changes 3. Detrusor muscle present, negative for tumor invasion 03/24/2022 4:30 PM [facility] Clinical History Bladder mass 03/24/2022 4:30 PM [facility] Gross Description The requisition and specimen are identified with patient's name and date of . Received in formalin, specimen A, bladder tumor aggregate of hawthorne-pink hawthorne soft tissues, 1.5 x 1.5 x 0.3 cm. Entirely submitted in cassette A1. LJ 03/24/2022 4:30 PM [facility] Microscopic Description Immunostain for pancytokeratin (control appropriate) is negative for tumor. Residual surface urothelium has risk developer maturation. 03/24/2022 4:30 PM [facility] Disclaimer All histochemical and/or immunohistochemical results are interpreted with controls that demonstrate appropriate staining reactions before reporting results. Note on use of immunocytochemistry reagents: This test was developed and its performance characteristic determined by [facility], Department of Laboratory Medicine. It has not [...] be interpreted with caution. 03/24/2022 4:30 PM [facility] Embedded Images 03/24/2022 4:30 PM [facility] Pathology/Cytolo gy MASS OF URINARY BLADDER / Unknown 03/23/2022 8:11 AM CDT 03/23/2022 8:51 AM CDT Comment:Pre-op diagnosis: Diagnosis unknown [R69] Jose Oliver MD LAB - PATHOLOGY/AIDAN MUNOZ ORDERABLES [facility] [address] [place] [address] * ETT LINE PERFORMABLE (03/23/2022 7:46 AM CDT) Narrative Wilfred Delgado APRN-CRNA - 03/23/2022 7:46 AM CDT Wilfred Delgado APRN-CRNA 03/23/2022 7:46 AM Endotracheal Tube Placement: Patient Location: OR. Intubation Event Date/Time: 03/23/2022 7:40 AM Procedure: intubation ([id number]). Procedure Section: Sedation: under general anesthesia. Indications [...] specific gravity. Appearance TURBID(A) CLEAR [facility] Specific [place] UA 1.027 1.001 - 1.035 [facility] pH UA < OR = 5.0 5.0 - 8.0 [facility] Glucose UA TRACE(A) NEGATIVE [facility] Bilirubin UA NEGATIVE NEGATIVE [facility] Ketone UA NEGATIVE NEGATIVE [facility] Blood UA 3+(A) NEGATIVE [facility] Protein UA 2+(A) NEGATIVE [facility] Nitrite UA NEGATIVE NEGATIVE [facility] Leukocyte UA 2+(A) NEGATIVE [facility] Comment: Test Performed at: [facility] [address] [place] [address] JESSICA MANLEY DO,MPH Urine URINE SPECIMEN OBTAINED BY CLEAN CATCH PROCEDURE / Unknown 03/11/2022 10:45 AM CDT 03/11/2022 10:46 AM CDT Jose Oliver MD LAB - URINALYSIS O RDERABLES [facility] [address] [place] [address] * PATH CONSULT ON REFERRED CASE (02/13/2022 8:57 AM CDT) Final Diagnosis A. Urinary bladder, transurethral resection, (OSC: [id number]; 01/21/2022): - Invasive urothelial cell carcinoma, high-grade - No definitive detrusor muscle seen B. Urinary bladder, left ureteral orifice transurethral resection, (OSC: [id number]; 01/21/2022): - Invasive urothelial cell carcinoma, high-grade - Detrusor muscle present, negative for tumor invasion 02/16/2022 1:52 PM [facility] Microscopic Description and Comment Performed. 02/16/2022 1:52 PM CDT [facility] Clinical History 02/16/2022 1:52 PM CDT [facility] PATH[facility] LAB Materials Received Received are 3 slide(s) labeled [id number] along with a copy of the outside pathology report. The materials originate from [facility], Department of Pathology, [address] [place] [address], [facility]. All original materials are returned to the [...] LAB Case Report Surgical Pathology Report Case: [id number] Authorizing Provider: Jose Oliver MD Collected: 02/13/2022 08:57 AM Ordering Location: [facility] Pathology Lab Received: 02/13/2022 08:57 AM [...] PATHOLOGY/CY TOLOGY ORDERABLES Performing Organization Address [facility]/State/[facility] Co de Phone Number [facility] [address] [phone] * ECHO COMPLETE W BUBBLE STUDY (12/31/2021 9:47 AM LEAD PROGRAMMER ANALYST) Anatomical Region Laterality Modality Chest Echo 12/31/2021 9:07 AM LEAD PROGRAMMER ANALYST Narrative Procedure Note Campos Fraga MD - 01/08/2022 Hollis Mccall MD ECHOCARDIOGRAPHY RAD IANT * IAKDC-7-PJGYVLWNNYL BLOOD PHENOTYPING PANEL (12/02/2021 10:26 AM LEAD PROGRAMMER ANALYST) [facility] Laxpx-6-Ggslqfvvcd n Phenotype M2M2 12/05/2021 5:33 PM LEAD PROGRAMMER ANALYST [facility] Comment: The patient appears to have a normal phenotype. All M alleles (including subtypes M1, M2, and M3) produce normal serum concentrations of wgygq-9-buibulqf inhibitor and are not associated with clinical disease. Caution in interpretation is advised if the patient has been transfused within the previous 21 days. Performed By: [facility] [address] [place] [address] Recreation Facilities Supervisor: Starr Boswell MD Lgydi-1-Lwnpgskfwa n 151 90 - 200 mg/dL 12/05/2021 5:33 PM LEAD PROGRAMMER ANALYST [facility] Comment:To convert to umol/L , multiply mg/dL by 0.185 Blood BLOOD SPECIMEN / Unknown Lab Venipuncture / Unknown 12/02/2021 10:26 AM LEAD PROGRAMMER ANALYST 12/02/2021 11:13 AM LEAD PROGRAMMER ANALYST Hollis Mccall MD LAB - CHEMISTRY BASSAM CONTRERAS [facility] [address] [place], [place] [address] * WOIDX-2-TPEGSWESOTX BLOOD (12/02/2021 10:26 AM LEAD PROGRAMMER ANALYST) [facility] Lrnik-9-Nluuwu ypsin 164 90 - 200 mg/dL 12/02/2021 12:30 PM LEAD PROGRAMMER ANALYST [facility] Blood BLOOD SPECIMEN / Unknown Lab Venipuncture / Unknown 12/02/2021 10:26 AM LEAD PROGRAMMER ANALYST 12/02/2021 11:13 AM LEAD PROGRAMMER ANALYST Hollis Mccall MD LAB - CHEMISTRY BASSAM CONTRERAS [address] [address], [facility] [phone] * LDL CHOLESTEROL DIRECT (12/02/2021 10:26 AM LEAD PROGRAMMER ANALYST) Only the most recent of2 resultswithin the time period is included. [facility] LDL Direct 95 <100 mg/dL 12/02/2021 12:15 PM [facility] Comment: ATP III Classification of LDL Cholesterol: <100 mg/dL: Optimal 100 - 129 mg/dL: Near Optimal/Above Optimal 130 - 159 mg/dL: Borderline High 160 - 189 mg/dL: High >190 mg/dL: Very High Blood BLOOD SPECIMEN / Unknown Lab Venipuncture / Unknown 12/02/2021 10:26 AM LEAD PROGRAMMER ANALYST 12/02/2021 11:31 AM LEAD PROGRAMMER ANALYST Monica Quijano MD LAB - CHEMISTRY ORD ERABLES [facility] [address] [place] [phone], [facility] [phone] * (ABNORMAL) LIPID PROFILE (12/02/2021 10:26 AM [facility]) Only the most recent of3 resultswithin the time period is included. [facility] Cholesterol Total 209(H) <200 mg/dL 12/02/2021 11:59 AM [facility] HDL 38(L) >40 mg/dL 12/02/2021 11:59 AM [facility] Comment: ATP III Classification of HDL Cholesterol: <40 mg/dL: Considered a major risk factor. >60 mg/dL: Considered a negative risk factor. LDL Calculated 12/02/2021 11:59 AM [facility] Comment:Calculation of LDL v alue was not performed because triglyceride concentrations greater than 400 mg/dL render the calculated value invalid. For this reason, the LDL Direct assay for measurement of LDL Cholesterol has been performed (per laboratory protocol). Triglycerides 544(H) <150 mg/dL 12/02/2021 11:59 AM [facility] Comment: ATP III Classification of Triglycerides: <150 mg/dL: Normal 150 - 199 mg/dL: Borderline High 200 - 400 mg/dL: High >500 mg/dL: Very High Blood BLOOD SPECIMEN / Unknown Lab Venipuncture / Unknown 12/02/2021 10:26 AM LEAD PROGRAMMER ANALYST 12/02/2021 11:31 AM LEAD PROGRAMMER ANALYST Monica Quijano MD LAB - CHEMISTRY ORD ERABLES [facility] [address] [place] [address], [facility] [phone] * OPH OCT TEST SLU (12/02/2021 9:29 AM LEAD PROGRAMMER ANALYST) Anatomical Region Laterality Modality Other 12/02/2021 9:29 AM LEAD PROGRAMMER ANALYST Tyrone Zuniga MD [facility] ORDERABLES * (ABNORMAL) DRUG SCREEN TOX URINE PANEL (IN HOUSE) (10/06/2021 4:17 PM LEAD PROGRAMMER ANALYST) Amphetamines Screen Urine Negative Negative : < 1000 ng/mL 10/06/2021 5:04 PM [facility] Barbiturates Screen Urine Negative Negative : < 200 ng/mL 10/06/2021 5:04 PM [facility] Benzodiazepine Screen Urine Positive(A) Negative : < 200 ng/mL 10/06/2021 5:04 PM [facility] Comment: Positive urine benzodiazepine screening results should be confirmed by another generally accepted non-immunological method such as gas chromatography or mass spectrometry. Opiates Urine Positive(A) Negative : < 300 ng/mL 10/06/2021 5:04 PM [facility] Comment:Positive urine opiat e screening results should be confirmed by another generally accepted non-immunological method such as gas chromatography or mass spectrometry. Cocaine Metabolites Urine Negative Negative : < 300 ng/mL 10/06/2021 5:04 PM [facility] Phencyclidine Screen Urine Negative Negative : < 25 ng/ml 10/06/2021 5:04 PM [facility] Cannabinoids Screen Urine Positive(A) Negative : <50 ng/mL 10/06/2021 5:04 PM [facility] Comment:Positive urine canna binoids (THC) screening results should be confirmed by another generally accepted non-immunological method such as gas chromatography or mass spectrometry. Methadone Screen Urine Negative Negative : < 300 ng/mL 10/06/2021 5:04 PM [facility] Fentanyl Screen Urine Negative Negative : <1.0 ng/mL 10/06/2021 5:04 PM [facility] Urine URINE / Unknown Collection / Unknown 10/06/2021 4:17 PM LEAD PROGRAMMER ANALYST 10/06/2021 4:34 PM LEAD PROGRAMMER ANALYST Narrative [facility] - 10/06/2021 5:04 PM LEAD PROGRAMMER ANALYST The Urine Toxicology Screening Panel does not screen for Propoxyphene, Meprobamate, Carisoprodol, Trazodone, psgz-ooq-ipzxass medications and/or volatiles (Acetone, Isopropanol, Methanol or Ethylene Glycol). Ethanol, Salicylate, Acetaminophen, Tricyclic Antidepressants and several therapeutic drugs may be individually assayed in serum or plasma specimen. Toxicology testing by the [facility] is an aid to medical diagnosis and treatment of patients. No documented chain of custody was maintained. Results are intended to be used for clinical purposes only. Nicole Singletary DO LAB - URINE CHEMISTR Y ORDERABLES Performing Organization Address City/[facility]/ZIP Co de Phone Number [address] [address], [facility] [phone] * TSH REFLEX FREE T4 (10/06/2021 4:00 PM LEAD PROGRAMMER ANALYST) TSH 2.406 0.350 - 4.940 uIU/mL 10/06/2021 5:17 PM LEAD PROGRAMMER ANALYST [facility] Blood BLOOD SPECIMEN / Unknown Lab Venipuncture / Unknown 10/06/2021 4:00 PM LEAD PROGRAMMER ANALYST 10/06/2021 4:34 PM LEAD PROGRAMMER ANALYST Nicole Singletary DO LAB - CHEMISTRY ORDE RABLES Performing Organization Address City/[facility]/ZIP Co de Phone Number [address] [address], [place] [phone] * VITAMIN D 25-HYDROXY (10/06/2021 4:00 PM LEAD PROGRAMMER ANALYST) Vitamin D, 25 Hydroxy 30.0 30.0 - 80.0 ng/mL 10/06/2021 5:17 PM LEAD PROGRAMMER ANALYST [facility] Comment: The recommendations for 25-Hydroxy Vitamin [...] Lab Venipuncture / Unknown 10/06/2021 4:00 PM LEAD PROGRAMMER ANALYST 10/06/2021 4:34 PM LEAD PROGRAMMER ANALYST Nicole Singletary DO LAB - CHEMISTRY BASSAM CONTRERAS [facility] [address] [place] [address], [facility] [phone] * (ABNORMAL) COMPREHENSIVE METABOLIC PANEL (10/06/2021 4:00 PM LEAD PROGRAMMER ANALYST) BUN 18 7 - 26 mg/dL 10/06/2021 4:59 PM [facility] Creatinine 0.97(H) 0.56 - 0.96 mg/dL 10/06/2021 4:59 PM [facility] Sodium 140 136 - 145 mmol/L 10/06/2021 4:59 PM [facility] Potassium 3.5 3.5 - 4.5 mmol/L 10/06/2021 4:59 PM [facility] Chloride 104 98 - 107 mmol/L 10/06/2021 4:59 PM [facility] CO2 27 22 - 29 mmol/L 10/06/2021 4:59 PM [facility] Glucose 124(H) 70 - 115 mg/dL 10/06/2021 4:59 PM [facility] Calcium 9.3 8.4 - 10.2 mg/dL 10/06/2021 4:59 PM [facility] Protein Total 6.7 6.0 - 8.3 g/dL 10/06/2021 4:59 PM [facility] Albumin 3.3(L) 3.4 - 5.0 g/dL 10/06/2021 4:59 PM [facility] Bilirubin Total 0.2 0.2 - 1.2 mg/dL 10/06/2021 4:59 PM [facility] Alkaline Phosphatase 78 40 - 150 U/L 10/06/2021 4:59 PM [facility] ALT 16 5 - 55 U/L 10/06/2021 4:59 PM [facility] AST 11 5 - 34 U/L 10/06/2021 4:59 PM [facility] Anion Gap 13 8 - 18 10/06/2021 4:59 PM [facility] BUN/Creatinine Ratio 19 7 - 23 10/06/2021 4:59 PM [facility] Osmolality Calculated 293 270 - 300 mOsm/kg 10/06/2021 4:59 PM [facility] Albumin/Globulin Ratio 1.0(L) 1.1 - 2.3 10/06/2021 4:59 PM [facility] eGFR by CKD-EPI 64(L) >=90 mL/min/1.7 3 m2 10/06/2021 4:59 PM [facility] Blood BLOOD SPECIMEN / Unknown Lab Venipuncture / Unknown 10/06/2021 4:00 PM LEAD PROGRAMMER ANALYST 10/06/2021 4:34 PM [facility] Nicole Singletary DO LAB - CHEMISTRY ORDE BEN [facility] [address] [place] [address], [facility] [phone] * (ABNORMAL) BLOOD GASES ART+COOX POCT (10/06/2021 1:38 PM LEAD PROGRAMMER ANALYST) pH Arterial 7.44 7.35 - 7.45 pH 10/06/2021 1:38 PM [facility] pO2 Arterial 78(L) 80 - 100 mmHg 10/06/2021 1:38 PM [facility] pCO2 Arterial 44 35 - 45 mmHg 1:38 PM [facility] BE Arterial 5.0(H) -2.0 - 2.0 mmol/L 10/06/2021 1:38 PM [facility] Oxyhemoglobin Arterial 91.5 % 10/06/2021 1:38 PM [facility] Dexoyhemoglobin (HHB) % 1.9 % 10/06/2021 1:38 PM [facility] O2 Content Arterial 17.5 Interpret within clinical context mg/dL 10/06/2021 1:38 PM [facility] Hemoglobin by COOX 13.6 12.0 - 15.6 g/dL 10/06/2021 1:38 PM [facility] O2 Saturation Arterial 98 90 - 100 % 10/06/2021 1:38 PM [facility] HCO3 Arterial 30 20 - 30 mmol/l 10/06/2021 1:38 PM [facility] Methemoglobin 0.8 0.0 - 2.0 % 10/06/2021 1:38 PM [facility] Carboxyhemoglobin 5.9(H) 0.0 - 2.0 % 2020 1:38 PM [facility] Comment:Carboxyhemoglobin No rmal Concentration: Non-smokers: 0-2%; Smokers: 0- 9%; Toxic: >20% Blood, arterial ARTERIAL BLOOD SPECIMEN / Unknown 10/06/2021 1:38 PM LEAD PROGRAMMER ANALYST 10/06/2021 1:39 PM LEAD PROGRAMMER ANALYST Damian Hager MD LAB - POINT OF CARE ORDERABLES [facility] [address] [place] [phone], [facility] [phone] * PFT OXYGEN DESATURATION STUDY (10/06/2021 1:05 PM LEAD PROGRAMMER ANALYST) Impressions Rose Marie Oro MD - 10/06/2021 1:05 PM LEAD PROGRAMMER ANALYST [facility] DEPARTMENT OF PULMONARY, CRITICAL [...] Marie Oro MD - 10/06/2021 1:05 PM LEAD PROGRAMMER ANALYST Mary Benson MD 10/11/2021 4:46 PM Damian Hager MD PFT ORDERABLES * SIX MINUTE WALK (10/06/2021 1:05 PM LEAD PROGRAMMER ANALYST) Impressions Rose Marie Oro MD - 10/06/2021 1:05 PM LEAD PROGRAMMER ANALYST [facility] DEPARTMENT OF PULMONARY, CRITICAL CARE, AND [...] Marie Oro MD - 10/06/2021 1:05 PM LEAD PROGRAMMER ANALYST Mary Benson MD 10/11/2021 4:46 PM Damian Hager MD RESPIRATORY THERAPY ORDERABLES * COMPLETE PFT W/WO BRONCHODILATOR (10/06/2021 1:05 PM LEAD PROGRAMMER ANALYST) Impressions Rose Marie Oro MD - 10/06/2021 1:05 PM LEAD PROGRAMMER ANALYST [facility] DEPARTMENT OF PULMONARY, CRITICAL CARE, AND [...] of Pulmonary, Critical Care, & Sleep Medicine [facility] I have personally reviewed and intepreted the results of the study and made any necessary edits to the final impression of the fellow. Rose Marie Oro MD Narrative Rose Marie Oro MD - 10/06/2021 1:05 PM LEAD PROGRAMMER ANALYST Mary Benson MD 10/11/2021 4:46 PM Damian Hager MD RESPIRATORY THERAPY ORDERABLES * CARDIAC PROCEDURE ORDER (11/02/2020 4:17 PM LEAD PROGRAMMER ANALYST) Narrative 11/02/2020 4:17 PM LEAD PROGRAMMER ANALYST Ordered by an unspecified provider. Scanned Document CARDIAC SERVICES ORD ERABLES * CCL CARDIAC CATH LEFT (10/24/2020 10:29 AM LEAD PROGRAMMER ANALYST) Anatomical Region Laterality Modality Chest X-Ray Angiograph y Narrative 11/05/2020 4:10 PM LEAD PROGRAMMER ANALYST [facility] Cardiac Catheterization Procedure Note Patient: Rody Zaidi Age: [age] year old Date of : 1960 Date of Admission: 10/24/2020 Procedure Date: 10/24/20 FELLOW / ADVANCED PRACTICE PSYCHIATRIC NURSE: Mart Clinton ATTENDING PHYSICIAN: Dr. Deven Cook. [...] had chest pain with dyspnea. Coming for [facility] for evaluation. Also reported abnormal test in past but no image or report available. Per outside boiler operator helper Stress test done in 01/2020 was clinically [...] evaluation, please review the evaluation forms in [facility]. For details on monitored clinical parameters during the intra-service sedation time, please review the procedure nurse documentation in [facility]. Total sedation administered as follows: 25 [...] Deven Gonzalez MD Monica Quijano MD CARDIAC ASSISTANT TO THE PRESIDENT RA DIANT * VAS CAROTID DUPLEX BILATERAL (10/22/2020 9:27 AM LEAD PROGRAMMER ANALYST) Anatomical Region Laterality Modality Neck Intravascular Ul trasound 10/22/2020 9:04 AM LEAD PROGRAMMER ANALYST Narrative Procedure Note Eric Costa MD - 10/22/2020 Kendrick Tao MD VASCULAR LAB ORDERAB LES * VAS ARTERIAL ANKLE ARM INDEX (10/22/2020 9:03 AM LEAD PROGRAMMER ANALYST) Only the most recent of2 resultswithin the time period is included. Anatomical Region Laterality Modality Ankle / Foot, Upper Extremity In travascular Ultrasound 10/22/2020 8:16 AM LEAD PROGRAMMER ANALYST Narrative Procedure Note Eric Costa MD - 10/22/2020 Ruy Zendejas MD VASCULAR LAB ORDERAB LES * VAS DILEEP ABD DOPPLER AO IVC ILIAC (10/22/2020 9:02 AM LEAD PROGRAMMER ANALYST) Only the most recent of2 resultswithin the time period is included. Anatomical Region Laterality Modality Pelvis, Abdomen Intravascular Ul trasound 10/22/2020 8:27 AM LEAD PROGRAMMER ANALYST Narrative Procedure Note Eric Costa MD - 10/22/2020 Ruy Zendejas MD VASCULAR LAB ORDERAB LES * PT-INR (10/21/2020 8:12 AM LEAD PROGRAMMER ANALYST) INR 1.0 [facility] Comment: Reference Range 0.9-1.1 Moderate-intensity Warfarin Therapy 2.0-3.0 Higher-intensity Warfarin Therapy 3.0-4.0 PT 10.1 9.0 - 11.5 sec [facility] Comment: For additional information, please refer to http://education.[employer]/faq/TQC414 (This link is being provided for informational/ educational purposes only.) REPORT COMMENT: FASTING:YES Test Performed at: [facility] [address] GISELE JUSTICE MD Blood BLOOD SPECIMEN / Unknown 10/21/2020 8:12 AM LEAD PROGRAMMER ANALYST 10/21/2020 8:14 AM LEAD PROGRAMMER ANALYST Monica Quijano MD LAB - COAGULATION O RDERABLES [address] [address] * CARDIAC EKG ORDER (10/03/2020 12:41 PM LEAD PROGRAMMER ANALYST) Only the most recent of2 resultswithin the time period is included. Narrative 10/03/2020 12:41 PM LEAD PROGRAMMER ANALYST Ordered by an unspecified provider. Scanned Document CARDIAC SERVICES ORD ERABLES * EKG - Clinic Performed (10/01/2020 9:43 AM LEAD PROGRAMMER ANALYST) Monica Quijano MD ECG ORDERABLES * TROPONIN I (09/04/2020 11:24 AM CDT) Troponin I 0.025 <0.032 ng/mL 09/04/2020 12:05 PM CDT [facility] Blood BLOOD SPECIMEN / Unknown Venipuncture / Unknown 09/04/2020 11:24 AM CDT 09/04/2020 11:34 AM CDT Ruy Zendejas MD LAB - CHEMISTRY [place] [place] [address] [place] [address], [facility] [phone] * EKG 12-LEAD (09/04/2020 11:16 AM CDT) Pathologist [facility] Ventricular Rate 80 BPM [facility] MUSE Atrial Rate 80 BPM [facility] P-R Interval 142 ms [facility] QRS Duration ms 86 ms [facility] Q-T Interval ms 392 ms [facility] QTC Calculation (Bezet) 452 ms [facility] Calculated P [place] 70 degrees [facility] Calculated R [place] 50 degrees [facility] Calculated T [place] 34 degrees [facility] Interpretation EKG NORMAL SINUS RHYTHM NORMAL ECG NO PREVIOUS ECGS AVAILABLE Confirmed by Jg Casey ([id number]) on 10/02/2020 11:20:55 AM [facility] 09/04/2020 11:1 6 AM CDT 10/02/2020 11:20 AM LEAD PROGRAMMER ANALYST Ruy Zendejas MD ECG ORDERABLES Performing Organization Address [facility]/ZIP Co de Phone Number [facility] * IR ANGIOGRAM LEFT LEG (09/04/2020 [...] stent placement x2 ATTENDING: Kendrick Tao MD ADVANCED PRACTICE PSYCHIATRIC NURSE: Ruy Zendejas MD ANESTHESIA: Moderate conscious sedation [...] sheath was then exchanged for a 5 Faroese sheath over the provided J-wire. A Glidewire [...] sheath was then exchanged for a 5 Faroese sheath over a J-wire. A Glidewire and angled glide catheter were then used to attempt crossing the occluded left common iliac artery from below. However, this was initially unsuccessful as it had appeared that the wire and catheter were tracking into a dissection plane in the [place] distal left common iliac artery. Crossing from [...] For increased support, the left groin 5 Faroese sheath was exchanged for a longer 5 Faroese sheath. The back of the Glidewire and [...] was withdrawn and the left groin 5 Faroese sheath was exchanged for a 7 Faroese sheath. In order to prevent jailing of the right common iliac artery and stent, the decision was made to place a balloon in the right common iliac artery and stent with plans to insufflate this in tandem with deployment of the new stent on the left. The wire on the right was exchanged for an Amplatz wire in the right groin 5 Faroese sheath was exchanged for a 6 Faroese sheath. A 9 mm x 40 mm Lynch balloon was then advanced via the right [...] necessitating further intervention. The left groin 7 Faroese sheath was exchanged for a short 7 Faroese sheath. The wires were withdrawn and Mynx [...] stent placement x2 ATTENDING: Kendrick Tao MD ADVANCED PRACTICE PSYCHIATRIC NURSE: Ruy Zendejas MD ANESTHESIA: Moderate conscious sedation [...] micropuncture sheath was then exchangedfor a 5 Faroese sheath over the provided J-wire. A Glidewire [...] sheath was then exchanged for a 5 Faroese sheath over a J-wire. AGlidewire and angled glide catheter were then used to attempt crossing theoccluded left common iliac artery from below. However, this was initially unsuccessful as it had appeared that the wire and catheter were tracking into a dissection plane in the [place] distal left common iliac artery. Crossing from [...] sheath was exchanged for a longer 5 Faroese sheath. The back of the Glidewire and [...] was withdrawn and the left groin 5 Faroese sheath was exchanged for a 7 Faroese sheath. In order to prevent jailing of theright common iliac artery and stent, the decision was made to place a balloonin the right common iliac artery and stent with plans to insufflate this in tandem with deployment of the new stent on the left. The wire on theright was exchanged for an Amplatz wire in the right groin 5 Faroese sheath was exchanged for a 6 Faroese sheath. A 9 mm x 40 mm Lynch balloon was then advanced via the right [...] necessitating further intervention. The left groin 7 Faroese sheath was exchanged for a short 7 Faroese sheath. The wires were withdrawn and Mynx [...] AM CDT Kathleen Hill MD O[facility]AL[facility]OLOGY SERV [facility] ORDERABLES * OPH OCT TEST [facility] (02/09/2020 12:00 AM CDT) Anatomical Region Laterality Modality Other 02/09/2020 Tyrone Zuniga MD OPHTHALMOLO GY SERVICES ORDERABLES * XR KNEE RIGHT 4VW OR MORE (10/08/2015 8:35 AM LEAD PROGRAMMER ANALYST) Anatomical Region Laterality Modality Lower Extremity Other Impressions 10/08/2015 11:03 AM LEAD PROGRAMMER ANALYST Impression: 1. No acute osseous injury. [...] 11:03 AM . Narrative 10/08/2015 11:03 AM LEAD PROGRAMMER ANALYST Examination: 1. XR KNEE RIGHT 4+ [...] LEFT 4VW OR MORE (10/08/2015 8:35 AM LEAD PROGRAMMER ANALYST) Anatomical Region Laterality Modality Lower Extremity Other Impressions 10/08/2015 11:03 AM LEAD PROGRAMMER ANALYST Impression: 1. No acute osseous injury. [...] 11:03 AM . Narrative 10/08/2015 11:03 AM LEAD PROGRAMMER ANALYST Examination: 1. XR KNEE RIGHT 4+ [...] . Александр Sanchez MD DIAGNOSTIC IMAGING O [facility] Care Teams Secondary Art Teacher Relationship Specialty Start Date End Date Matti Balderas MD [address] [place] [address] [address] [place] [address] PCP - General Family Medicine 10/27/24
--- OUTSIDE RECORDS SUMMARY | 2025-01-05 11:19 | XMS_ITS | Encounter Summary ---
Author Organization [facility] Address [address] [place] [address] Care Team Providers Care Door Frame Builder Name Role Phone Asa Mcnamara MD Unavailable [phone] Heber Adorno MD Primary Care Provider Unavailable Deisi Andrews MD Primary Care Provider [phone] Neva Holden MD Primary Care Provider [phone] Deisi Andrews MD Primary Care Provider [phone] Neva Holden MD Primary Care Provider [phone] Encounter Details Date Type Department Care Team (Late st Contact Info) Description 04/30/2017 Abstract [facility] AT [address] [id number] Rafael Thakur MA Social History Tobacco Use Types Packs/Day Years Used Date Smoking Tobacco: Every Day Cigarettes Smokeless Tobacco: Never Alcohol Use Standard Drinks/Week Comments No 0 (1 standard drink = 0.6 oz pur e alcohol) Comments Unknown Sex and Gender Information Value Date Recorded Sex Assigned at Female 12/06/2019 3:36 PM [employer]ATION [employer] OFFICER Legal Sex Female 5:20 PM CDT Gender Identity Female 12/06/2019 3:36 PM [employer] OFF[employer] Sexual Orientation Straight 12/06/2019 3: 36 PM [employer] OFF[employer] Occupation Industry Job Start Date Job [...] on filedocumented in this encounter Care Teams Door Frame Builder Relationship Specialty Start Date End Date Heber Adorno MD PCP - General 03/11/17 06/14/17 Deisi Andrews MD [address] [place] [address] PCP - General FAMILY PRACTICE 06/15/17 10/14/19 Neva Holden MD . [facility] [address] [place] [address] [facility] 10/15/19 12/05/19 Deisi Andrews MD [address] [place] [address] PCP - General FAMILY PRACTICE 12/06/19 02/13/20 Neva Holden MD SO. [facility] [address] [place] [address] PCP - [facility] 02/14/20 Asa Mcnamara MD [facility]. [facility] [address] [place] [address] [employer] CARDIOVASCULAR DISEASE 05/15/16 documented as of this encounter
--- OUTSIDE RECORDS SUMMARY | 2025-01-05 11:19 | XMS_ITS | Encounter Summary ---
Author Organization [facility] Address [address] [place] [address] Care Team Providers Care Fashion Consultant Selling Name Role Phone Asa Mcnamara MD Unavailable [phone] Deisi Andrews MD Primary Care Provider [phone] Neva Holden MD Primary Care Provider [phone] Deisi Andrews MD Primary Care Provider [phone] Neva Holden MD Primary Care Provider [phone] Encounter Details Date Type Department Care Team (Late st Contact Info) Description 11/25/2018 [facility] at [address] [address] Rafael Thakur MA Social History Tobacco Use Types Packs/Day Years Used Date Smoking Tobacco: Every Day Cigarettes Smokeless Tobacco: Never Comments:1 pk day Alcohol Use Standard Drinks/Week Comments No 0 (1 standard drink = 0.6 oz pur e alcohol) Comments Unknown Sex and Gender Information Value Date Recorded Sex Assigned at Female 12/06/2019 3:36 PM CREPE LAMINATOR OPERATOR Legal Sex Female 5:20 PM CDT Gender Identity Female 12/06/2019 3:36 PM CREPE LAMINATOR OPERATOR Sexual Orientation Straight 12/06/2019 3: 36 PM CREPE LAMINATOR OPERATOR Occupation Industry Job Start Date Job [...] on filedocumented in this encounter Care Teams Fashion Consultant Selling Relationship Specialty Start Date End Date Deisi Andrews MD [address] [place] [address] PCP - General FAMILY PRACTICE 06/15/17 10/14/19 Neva Holden MD [facility] [address] [place] [address] PCP - General FAMILY PRACTICE 10/15/19 12/05/19 Deisi Andrews MD [address] [place] [address] PCP - General FAMILY PRACTICE 12/06/19 02/13/20 [facility] [address] [place] [place] [address] PCP - General FAMILY PRACTICE 02/14/20 Asa Mcnamara MD [facility]. [facility] [address] [place] [address] [employer] CARDIOVASCULAR DISEASE 05/15/16 documented as of this encounter
--- OUTSIDE RECORDS SUMMARY | 2025-01-05 11:19 | XMS_ITS | Referral Summary ---
Author Organization [facility] Address [address] [facility] [place] [address] Care Team Providers Care Coating Mixer Name Role Phone Matti Balderas MD Primary Care Provider [phone] Source Comments [facility],non-owned Affiliates and Associated Physician Practices is amultiple site organization consisting of ambulatory clinics and hospital sitesin [place], [place], [place] and [place]. This disclosure is being madepursuant to the Care Everywhere program and may not contain all information available regarding this patient. Last updated 18.[facility] Encounters Date Type Department Care Team Description 12/19/2024 Travel 10/27/2024 Travel 10/27/2024 1:30 PM CITRIX ARCHITECT Procedure visit [facility] - Urology [address] [place] [address] [address] [place] [address] Jose Oliver MD Malignant neoplasm of urinary [...] meal 7 Active vitamin D, ergocalciferol, (DRISDOL) 56220 UNITS capsule Take 1 (one) capsule by [...] Stage 2 moderate COPD by GOLD classification ([facility]) Inhale 2 (two) puffs by mouth [...] Arechiga (recurrent major depressive disorder) in remission ([facility]) Apply 1 (one) patch to skin once daily 30 patch 2 4 Active nicotine (Nicotrol) 10 MG inhalerIndications: MDD (recurrent major depressive disorder) in remission ([facility]) Inhale 10 mg by mouth as [...] Problem Noted Date Diagnosed Date CAD in tribe artery 10/24/2020 MDD (recurrent major depressive disorder) [...] LURIA, FLUZONE TRIVALENT; 6MO+) (IIV3) 12/16/2015 Covid Sportfort primary monoval ent 12+ yr 0.3mL Purple [...] Comments Blood Pressure 142/84 12/19/2024 9:31 AM CITRIX ARCHITECT Pulse 88 12/19/2024 9:31 AM CITRIX ARCHITECT Temperature 36.5 C (97.7 F) 12/19/2024 9:31 AM CITRIX ARCHITECT Respiratory Rate 18 10/27/2024 2:11 PM CITRIX ARCHITECT Oxygen Saturation 96% 12/19/2024 9:31 AM CITRIX ARCHITECT Inhaled Oxygen Concentration 21% 06/21/2024 8 :20 AM CDT Weight 77.6 kg (171 lb) 12/19/2024 9:31 AM CITRIX ARCHITECT Height 160 cm (5' 3 ) 10/27/2024 2:11 PM CITRIX ARCHITECT Body Mass Index 30.29 10/27/2024 2:11 PM CITRIX ARCHITECT Functional Status Functional Status Response Date of [...] st Contact Info) Description 01/19/2025 11:30 AM CITRIX ARCHITECT Procedure visit [facility] - Urology [address] [place] [address] [address] [place] [address] Jose Oliver MD [address] [place] [id number] Goals Goal Patient Goal Type Associated Problems [...] last dose Medical Devices Implanted Type Area Dip Tube Assembler Machine Device Identifier Shelf Expiration Date Model / Serial / Lot Stent Trchbr 10mm 7fr 38mm 80cm Cvr Cath Implanted:Qty: 1 on 09/04/2020 by Jose A Clark MD at [facility] N/A: Abdomen Getinge [employer] 04/05/2023 [id number] / / [id number] Stent Trchbr 8mm 7fr 38mm 80cm Cvr Cath Implanted:Qty: 1 on 09/04/2020 by Jose A Clark MD at [facility] N/A: Abdomen Getinge [employer] 05/22/2023 [id number] / / [id number] Procedures Procedure Name Priority Date/Time Associated Diagnosis Comments URINALYSIS AUTO - POINT OF CARE (AMB) [facility] Routine 10/27/2024 2:13 PM CITRIX ARCHITECT Malignant neoplasm of urinary bladder, unspecified site (HCC) BASIC METABOLIC PANEL (CALCIUM TOTAL) STAT 06/28/2024 3:17 PM CDT HEMOGLOBIN A1C Routine 11/22/2023 10:36 AM CITRIX ARCHITECT Pre-op exam from Last 3 Months or Most Recently Relevant to Health Maintenance Results * URINALYSIS AUTO - POINT OF CARE (AMB) [facility] (10/27/2024 2:13 PM CITRIX ARCHITECT) Glucose UA neg [facility] [address] Bilirubin UA POCT neg [facility] [address] Ketones UA POCT neg [facility] [address] Specific [place]worth UA 1.[address] [facility] [address] Blood Urine POCT neg [facility] [address] pH UA 5.5 [facility] [address] Protein UA neg [facility] [address] Urobilinogen UA 0.2 [facility] [address] Nitrite UA neg [facility] [address] WBC UA neg [facility] [address] Urine URINE / Unknown 10/27/2024 2 :13 PM CITRIX ARCHITECT Jose Oliver MD LAB - POINT OF CAR E ORDERABLES [facility] [address] [place] [address], [facility] [phone] * BASIC METABOLIC PANEL (CALCIUM TOTAL) (06/28/2024 3:17 PM CDT) BUN 15 7 - 26 mg/dL 06/28/2024 3:51 PM [facility] Creatinine 0.69 0.56 - 0.96 mg/dL 06/28/2024 3:51 PM [facility] Sodium 138 136 - 145 mmol/L 06/28/2024 3:51 PM [facility] Potassium 4.0 3.5 - 4.5 mmol/L 06/28/2024 3:51 PM [facility] Chloride 103 98 - 107 mmol/L 06/28/2024 3:51 PM [facility] CO2 26 22 - 29 mmol/L 06/28/2024 3:51 PM [facility] Glucose 102 70 - 115 mg/dL 06/28/2024 3:51 PM [facility] Calcium 9.4 8.4 - 10.2 mg/dL 06/28/2024 3:51 PM [facility] Anion Gap 9 6 - 16 06/28/2024 3:51 PM [facility] BUN/Creatinine Ratio 22 7 - 23 06/28/2024 3:51 PM [facility] Osmolality Calculated 287 275 - 295 mOsm/kg 06/28/2024 3:51 PM [facility] eGFR by CKD-EPI >90 >=90 mL/min/1.7 3 m2 06/28/2024 3:51 PM [facility] Blood BLOOD SPECIMEN / Unknown Venipuncture / Unknown 06/28/2024 3:17 PM CDT 06/28/2024 3:26 PM CDT Martir Choi MD LAB - CHEMISTRY BASSAM CONTRERAS [facility] [address] [place] [address], [place] [phone] * (ABNORMAL) HEMOGLOBIN A1C [IN-HOUSE TEST] (11/22/2023 10:36 AM CITRIX ARCHITECT) Hemoglobin A1c 6.4(H) <=5.6 % 11/22/2023 12:05 PM [facility] Estimated Average Glucose 137 mg/dL 11/22/2023 12:05 PM [facility] Comment: HbA1c Interpretation: Normal : < 5.7% Pre-diabetes: 5.7-6.4% Diabetes: Equal to or greater than 6.5% Test results diagnostic of diabetes should be repeated for confirmation. Treatment target values recommended by ADA and other clinical organizations should be used to evaluate metabolic control in patients. Reference: [place] Diabetes Association, Standards of Care in Diabetes -2020 In patients 70 years and older consider HbA1c target range of 7.0-7.5% (Reference: Montez Rosas et al. JAMDA. 2012) The Sebia assay for the measurement of HbA1c is a National Glycohemoglobin Standardization Program (NGSP) certified method. Blood BLOOD SPECIMEN WITH EDTA / Unknown Lab Venipuncture / Unknown 11/22/2023 10:36 AM CITRIX ARCHITECT 11/22/2023 10:42 AM CITRIX ARCHITECT Jasmin Moore WINDOWS SOFTWARE ENGINEER-PSYCHOLOGY TECHNICIAN LAB - CHEMISTRY ORDERABLES [facility] [address] [place] [address], [place] [phone] from Last 3 Months or Most Recently Relevant to Health Maintenance Advance Directives * Full Code (Latest Code Status on File) Date Activated Date Inactivated Comments 10/24/2020 10:10 AM 10/24/2020 6:00 PM Care Teams Coating Mixer Relationship Specialty Start Date End Date Matti Balderas MD [address] [place] [address] PCP - General Family Medicine 10/27/24
--- OUTSIDE RECORDS SUMMARY | 2025-01-05 11:19 | XMS_ITS | Data Portability ---
Author Organization [facility] Kam Address [address] [place] [address] Care Team Providers Care Telephone Station Installer Name Role Phone LIAT HEAD Primary Care Provider Assessment No assessment recorded. 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 Surgeries None recorded. Imaging XR, chest, 2 view [address], [address] [facility] [address], [place], [address], 2024 13:39:03 Medication Orders ceftriaxo ne 1 gram solution for injection [address] [id number], [address] [facility], [place], [place], [id number], 2024 12:31:11 triamcino lone acetonide 40 mg/mL suspensio n for injection [address] [facility]71020, [address] [facility], [place], [place], [id number], 2024 12:31:11 Medrol (Wili) 4 mg tablets in a dose pack 2024 [address] [facility], [address] [facility], [place], [place], [id number], 2024 12:31:11 clindamyc in HCl 150 mg capsule 2024 025 [address], [address] [facility], [place], [place], [id number], 2024 12:31:11 promethaz ine 12.5 mg tablet 2024 025 [address] [facility], [address] [facility], [place], [place], [id number], 11/30/2024 12:25:55 tramadol 50 mg tablet 2024 025 [facility], [address] [facility], [place], [place], [id number], 11/30/2024 19:39:53 hydrocodo ne 10 mg-acetam inophen 325 mg tablet 2023 024 [facility], [address] [facility], [place], [place], [id number], 10/05/2024 17:20:51 Ciprodex 0.3 %-0.1 % ear drops,kayla pension 2021 022 [email or web address] [facility], [address] [place], [address], 2024 11:15:29 doxycycli ne hyclate 100 mg capsule 2021 022 [email or web address] [facility], [address] [place], [address], 10/05/2024 09:47:27 Patient TargetsNo targets recorded. Patient Instructions Encounter Date Encounter Id Patient Instructions Last Modified By Organization Details Last Modified Time 10/05/2024 [id number] Quitting Tobacco : Care Instructions Not available 10/05/2024 11:33:15 11/30/2024 [id number] Quitting Tobacco : Care Instructions Not available 11/30/2024 12:25:55 2024 [id number] Quitting Tobacco : Care Instructions Not available 2024 12:31:11 Reason for Referral Pain Management Referral for Osteoarthritis Referring Physician: Matti Balderas [facility], Encounter Date: 10/05/2024 Pain Management Referral for Degeneration of lumbar intervertebral disc Referring Physician: Matti Balderas [facility], Encounter Date: 11/30/2024 Results Created Date Observation Date Name Description Value Unit Range Abnormal Flag Note LastModifiedBy Organization Detail LastModifiedTime 10/23/2010/22/2021 MAMMO , scree derrell, bilat eral No observ ation record ed. [address], [address], 10/23/2021 15:22:23 10/31/20 21 10/31/2021 XR, chest No observ ation record ed. [address], [place], [address], 10/31/2021 14:31:31 Result Notes None recorded. Problems Name Problem SNOMED Code Status Onset Date Resolution Date Notes Provider Name and Address Organization Details Recorded Time Diabetes mellitus 06721069 Active 2018 Linda Hnasen [place], [place] [facility] 9 14:43:31 Diverticul itis 537637290 Active 2018 Dr. Audrey [place] [facility] 9 14:55:42 Chronic obstructiv e pulmonary disease 68940403 Active 2018 Linda [place] [facility] 9 14:57:53 Asthma 180053972 Active 2018 Lindaesther Hansen [place] [facility] 9 14:57:58 Peripheral vascular disease 162242165 Active 2018 Linda [place] [facility] 9 14:58:06 Tick bite 95994778 Active 2020May 18, 2021 Hollis Dash PA-C Attn: Tiffanie fontaine,[address] [place], [address], [place] [facility] 10:21:42 Essential hypertensi on 06499970 Active 2020 Hollis Dash PA-C Attn: Tiffanie fontaine,[address] [place], [address] [facility] 10:23:35 Lumbago with sciatica 053943372 Active 2020 Hollis Dash PA-C Attn: Tiffanie fontaine,[address] [place], [address], [place] [facility] 10:24:47 Tobacco dependence syndrome 18277384 Active 2020 JOSE PARDO Attn: Tiffanie g,[address] [place], [address] [facility] 09:41:09 Smoker 58774669 Active 2023 Matti Balderas MD Attn: Tiffanie fontaine,[address] [place], [address], [place] [facility] 4 10:19:16 Hyperchole sterolemia 74877607 Active 2023 Matti Balderas MD Attn: Tiffanie fontaine,[address] [facility], [place], [address], [place] [facility] 4 10:19:16 Atheroscle rosis of coronary artery without angina pectoris 3431954856029 03 Active 2023 Matti Balderas MD Attn: Tiffanie fontaine,[address] [facility], [place], [address], [place] [facility] 4 10:19:17 Malignant neoplasm of urinary bladder 255492174 Active 2023 Matti Balderas MD Attn: Tiffanie fontaine,[address] [facility], [place], [address], [facility] 4 10:19:18 Degenerati on of lumbar interverte bral disc 61455238 Active 2024 Matti Balderas MD Attn: Tiffanie fontaine,[address] [facility], [place], [address], [facility] 5 11:35:06 Problem Notes None recorded. Procedures Surgical History Date Name Laterality Status Provider Name and Address Organization Details Recorded Time 2018 esophagogastroduodenoscopy completed Jourdan Hansen MA [facility] 9 14:55:25 2018 colonoscopy completed Linda Hansen MA [facility] 9 14:55:16 cataract surgery completed Linda Hansen MA [facility] 0 11:39:24 Imaging Results Imaging Date Name Status LastModified by Organiz ation Details LastModified Time 10/22/2021 MAMMO, screening, bilateral completed [address] [place] [address], [address], 10/23/2021 15:22:23 10/31/2021 XR, chest completed [address], [address], 10/31/2021 14:31:31 Procedure Notes None recorded. Medical Equipment None Reported. Allergies Allergen ID Allergen Name Allergen Category Reaction Reaction Severity Criticality Documentation Date Start Date Code Code System Note Provider Name and Address Organization Details Recorded Time 364085 Product containin g penicilli n (product) medicatio n Not available Not available Not available 08/02/2019 84056 8001 SNOMED repea ts words and face turns red? Not Available Not Available Not Available 027236 haloperid ol medicatio n Not available Not available Not available 08/02/2019 5093 RxNorm Not Available Not Available Not Available 334226 triazolam medicatio n Not available Not available Not available 08/02/2019 04094 RxNorm Not Available Not Available Not Available 552276 azithromy lorena medicatio n Not available Not available Not available 11/17/2019 97181 RxNorm pain in stoma ch for hours Not Available Not Available Not Available 489587 Risperdal medicatio n Not available Not available Not available 04/19/2020 67978 8 RxNorm Not Available Not Available Not Available 318575 Product containin g 3-hydroxy -3-methyl glutaryl- coenzyme A reductase inhibitor (product) medicatio n Not available Not available Not available 10/05/2024 05723 009 SNOMED Not Available Not Available Not [...] completed Not Available Not Available Not Available Medrol (Wili) 4 mg tablets in a dose pack take as prescribe d 2024 active Not Available Not Available Not Avai lable prednisone 20 mg tablet TAKE 2 TABLETS BY MOUTH EVERY DAY FOR 5 DAYS 08/04 completed Not Available Not Available Not Available isosorbide mononitrate ER 30 mg tablet,exte nded release 24 hr 10/05 completed Not Available Not Available Not Available clonazepam 0.5 mg tablet TAKE 1/2 TABLET BY MOUTH THREE TIMES DAILY NEEDED FOR ANXIETY active Not Available Not Available No t Available metoprolol succinate ER 100 mg tablet,exte [...] Not Available Not Available No t Available clindamycin HCl 150 mg capsule Take 1 capsule every 6 hours by oral route for 7 days. 2024 active Not Available Not Available Not Avai lable amlodipine 2.5 mg tablet 04/19 completed Not [...] mg tablet active Not Available Not Available No t Available triamcinolo ne acetonide 0.1 % topical cream APPLY TOPICALLY TO THE AFFECTED AREA TWICE DAILY 11/05 completed Not Available Not Available Not Available ondansetron 8 mg disintegrat ing tablet DISSOLVE 1 TABLET ON THE TONGUE EVERY 8 HOURS NEEDED 12/29 completed Not Available Not Available Not Available baclofen 20 mg tablet 12/25 completed [...] completed Not Available Not Available Not Available ceftriaxone 1 gram solution for injection Take 1 g by injection route for 1 day. 2024 active Not Available Not Available Not Avai lable amoxicillin 875 mg tablet TAKE 1 TABLET [...] completed Not Available Not Available Not Available triamcinolo ne acetonide 40 mg/mL suspension for injection Take 80 mg by injection route for 1 day. 2024 active Not Available Not Available Not Avai lable cephalexin 500 mg capsule TAKE 1 CAPSULE [...] 2 PUFFS BY MOUTH EVERY 4 HOURS 2024 active Not Available Not Available Not Avai lable oxybutynin chloride 5 mg tablet TAKE 1 TABLET BY MOUTH THREE TIMES DAILY 10/05 completed Not Available Not Available Not Available ondansetron 4 mg disintegrat ing tablet DISSOLVE 1 TABLET ON THE TONGUE EVERY 8 HOURS NEEDED FOR NAUSEA OR VOMITING active Not Available Not Available No t Available cefdinir 300 mg capsule TAKE 1 CAPSULE BY MOUTH EVERY 12 HOURS 12/29 completed Not Available Not Available Not Available [...] 1 TABLET BY MOUTH EVERY 8 HOURS 12/29 completed Not Available Not Available Not Available [...] AFFECTED EAR(S) TWICE DAILY FOR 7 DAYS 12/29 completed Not Available Not Available Not Available rosuvastati n 10 mg tablet TK 1 T PO QD 11/22 completed Not Available Not Available Not Available rosuvastati n 20 mg tablet TAKE 1 TABLET BY MOUTH EVERY DAY AT BEDTIME active Not Available Not Available No t Available lancing device USE DIRECTED active Not Available Not Available [...] 1 CAPSULE BY MOUTH EVERY 12 HOURS 12/29 completed Not Available Not Available Not Available [...] completed Not Available Not Available Not Available lancets 30 gauge TEST 1 TIME DAILY active Not Available Not Available No t Available Eliquis 5 mg tablet TAKE 1 [...] t Available Vitals Date Recorded Body height Provider Name an d Address Organization Details Last Updated DateTime 10/16/2021 160.02 cm Benton Jimenez MA [facility] 10/16 16:34:16 Date Recorded Body height Respiratory rate Body mass index (BMI) Body weight Body temperature Pain severity - 0-10 verbal numeric rating [Score] - Reported Heart rate Systolic blood pressure Diastolic blood pressure Provider Name and Address Organization Details Last Updated DateTime 2 160.02 cm 18 /min 35.3 kg/m2 41648.6 g 97.2 [degF] 8 104 /min 129 mm[Hg] 100 mm[Hg] Trudy Cano [place] - [facility] 2 12:33:07 Date Recorded Body height Body mass index (BMI) Body weight Oxygen saturation Oxygen saturation in Arterial blood by Pulse oximetry Heart rate Systolic blood pressure Diastolic blood pressure Provider Name and Address Organization Details Last Updated DateTime 4 160.02 cm 32.3 kg/m2 47707.6 1 g 95 % 95 % 61 /min 122 mm[Hg] 72 mm[Hg] Ambar Dee MA [facility] 4 09:53:26 Date Recorded Body height Oxygen saturation Oxygen saturation in Arterial blood by Pulse oximetry Heart rate Body mass index (BMI) Body weight Systolic blood pressure Diastolic blood pressure Provider Name and Address Organization Details Last Updated DateTime 5 160.02 cm 96 % 96 % 79 /min 32.2 kg/m2 05453.8 1 g 118 mm[Hg] 72 mm[Hg] Ambar Dee MA [facility] 5 11:20:52 Date Recorded Body height Respiratory rate Body mass index (BMI) Body weight Oxygen saturation Oxygen saturation in Arterial blood by Pulse oximetry Heart rate Systolic blood pressure Diastolic blood pressure Provider Name and Address Organization Details Last Updated DateTime 5 160.02 cm 16 /min 29.8 kg/m2 29322.5 2 g 99 % 99 % 63 /min 120 mm[Hg] 76 mm[Hg] Vicky Quinn [facility] 5 11:19:28 Social History Question Answer Notes LastModified by Organizat ion Details LastModified Time Tobacco Smoking Status Current Every Day Smoker Trying to stop being using NiControl inhaler-hasn 't smoked in 3 wks. JOEY Conti, [facility] 10/16/2021 16:32:37 Do You Have An Advance [...] Date Of Your Most Recent Tobacco Screening? 2024 Information not available 2024 How Many Children Do You Have? 2 [...] Much Tobacco Do You Smoke? 1 PPD [email or web address] Information not available 10/05/2024 General Stress Level High Information not available 11/22/2020 Do You Use Any Illicit Or Recreational Drugs? No [email or web address] Information not available 10/16/2021 Has Tobacco Cessation Counseling Been Provided? Yes [email or web address] Information not available 2024 On What Date Was Tobacco Cessation Counseling Provided? 2024 [email or web address] Information not available 2024 How Many Years Have You Smoked Tobacco? [...] Eating Disorder N Anemia N Heart Attack (AR) N Anxiety Disorder Y Diabetes Y Muscle, [...] completed [place] [facility] 05/01/2021 10:04:30 COVID-19, mRNA, LNP-S, PF, 30 mcg/0.3 mL dose 1 [place] [facility] 05/01/2021 10:05:05 Influenza, split virus, quadrivalent, PF 9 completed Not Available [facility] 12/02/2019 02:38:45 Influenza, split virus, quadrivalent, preservative 0 completed JOEY [place], [place] [facility] 08/28/2020 11:13:06 Past Encounters Encounter ID Performer Location Encounter Start Date Encounter Closed Date Diagnosis/Indication Diagnosis SNOMED-CT Code Diagnosis ICD10 Code Diagnosis Note [id number] Neva Holden MD [facility] [address] [place] [address] 08/02/2019 14:19:32 08/03/2019 10:15:47 Diabetes mellitus 78958764 E11.9 a1c 7.0. [facility]es [facility] exam. Sees spareribs trimmer for her well-cared for feet. Peripheral arterial insufficiency 3609447989 63031 I73.9 2 stents in leg, carotid endarterec rikki, and iliac stents. Bilateral knee pain 1187 793861 4832825 M25.[address] 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.3 Screening mammography 24 408197 Z12.31 Tobacco user 157641360 Z 72.0 Adult heal th examination 792671835 Z00.00 Urinary incontinence 165 529016 R32 Mixed hyperlipidemia 267 173915 E78.2 Essential hypertension 94894654 I10 takes losartan, amlodipine , metoprolol [id number] Neva Holden MD [facility] [address] [place] [address] 09/22/2019 10:09:29 09/26/2019 14:40:41 Active or passive immunization 373818489 Z23 risks and benefits of immunizati ons reviewed, and patient agreed to receive shot Screening mammography 24 248892 Z12.31 Trying to give up smoking 171096971 Z72.0 Bilateral knee pain 1187 889050 0065064 M25.[address] Dash Depression screening 171 150040 Z13.31 patient does not appear to be significan tly depressed. [id number] JOSE BLANCO [facility] [address] [place] [address] 11/17/2019 14:34:43 11/20/2019 11:23:14 Acute otitis media 3053284 H66.92 Patient presents with lear pain. On exam patient has right ear infection. Left ear has tube in place. She is allergic to penicillin - rash all over and Zpack made her have nausea. Due to this rash I will avoid beta-lacta ms and do doxycyclin e. Patient is afebrile today, BP 120,82, WNL. [id number] Neva Holden MD [facility] [address] [place] [address] 12/25/2019 09:55:14 12/26/2019 09:25:01 Hyperlipidemia screening 681447879 Z13.220 History of tympanostomy 174690568 Z93.8 Essential hypertension 18639962 I10 takes losartan, amlodipine , metoprolol Vitamin D deficiency 347 99485 E55.9 Tobacco user 766494223 Z 72.0 Bilateral knee pain 1187 450340 7886223 M25.[address] Dash Chronic low back pain 27 6975102 M54.5 Type 2 patrick betes mellitus 80418512 E11.59 [id number] Neva Holden MD [facility] [address] [place] [address] 01/19/2020 16:02:06 01/22/2020 12:01:20 Chronic obstructive pulmonary disease 95625424 J44.9 Bilateral cataracts 9572 2004 H26.9 Bilateral knee pain 1187 330178 9146274 M25.[address] Dash Essential hypertension 61643263 I10 takes losartan, amlodipine , metoprolol . Patient advised to limit salt and caffeine intake to maintain good blood pressure. [id number] Matti Paris MD [facility] [address] [place] [address] 02/01/2020 13:53:27 02/08/2020 16:34:26 Acute sinusitis 84897770 J01.90 Dysfunctio n of eustachian tube 56309668 H69.93 [id number] Neva Holden MD [facility] [address] [place] [address] 02/14/2020 09:15:25 02/16/2020 10:06:53 Fracture of rib 83413707 S22.31XD Bilateral knee pain 1187 271736 6343106 M25.[address] Dash Moderate r ecurrent major depression 17398315 F33.1 Patient is already taking alprazolam , fluoxetine , and trazodone. [id number] Neva Holden MD [facility] [address] [place] [address] 04/19/2020 09:52:32 04/22/2020 17:32:47 Otitis media 39126861 H66.93 will use cipro eye drops in the ears (covered by insurance, ear drops are not, strength is comparable , eye drops not irritating ) and see what Dr. Paris says. Type 2 patrick betes mellitus 72930143 E11.[address] Cueto for her diabetic eye exams at [facility]. She has poor peripheral circulatio n, no detectable pulses in her feet, has had an KENZIE and was supposed to have further testing but [facility] did not do it. She would like a vascular workup at [facility] for PAD. Renal diso rder due to type 2 diabetes mellitus 311551352 E11.21 [id number] Neva Holden MD [facility] [address] [place] [address] 06/05/2020 16:02:08 06/10/2020 09:31:12 Acute low back pain 337810338 M54.5 patient encouraged to quit smoking since smokers' backs deteriorat e more rapidly and neurosurge ons require patients to refrain from smoking in order to heal better. [id number] Neva Holden MD [facility] [address] [address] 08/28/2020 10:23:47 09/02/2020 09:17:04 Administration of influenza vaccine 72623321 Z23 Hemorrhoids 41832340 K64 .9 Lumbago with sciatica 20 4059927 M54.40 Decreased vascular flow 62580334 R94.39 scheduled for vascular surgery in near future on the left leg. Acute low back pain 2788 51602 M54.5 patient encouraged to quit smoking since smokers' backs deteriorat e more rapidly and neurosurge ons require patients to refrain from smoking in order to heal better. Screening mammography 24 794544 Z12.31 Moderate p ersistent asthma 040284928 J45.40 [id number] Neva Holden MD [facility] [address] [facility] [address] 11/22/2020 08:40:06 12/03/2020 07:50:58 Diarrhea 93266266 R19.7 Right lowe r quadrant pain 609403439 R10.31 patient advised to go to the emergency room. Acute sinusitis 75419693 J01.90 Coronary arteriosclerosis 30046707 I25.10 Lumbago with sciatica 20 9903194 M54.40 Mixed anxi ety and depressive disorder 544214321 F41.8 positive screening; taking fluoxetine and alprazolam . [id number] Neva Holden MD [facility] [address] [place] [address] 02/20/2021 10:53:00 02/21/2021 00:41:20 Bilateral knee pain 3372354315 0685420 M25.[address] Fowler Mixed hyperlipidemia 267 808065 E78.2 does not tolerate crestor or pravastati n. Essential hypertension 17270659 I10 takes losartan, metoprolol . Patient advised to limit salt and caffeine intake to maintain good blood pressure. Type 2 patrick betes mellitus 88239524 E11.[address] Cueto for her diabetic eye exams at [facility]. [id number] Neva Holden MD [facility] [address] [place] [address] 05/14/2021 10:06:50 05/15/2021 12:38:02 Type 2 diabetes mellitus 03614989 E11.[address] Cueto for her diabetic eye exams at [facility]. will make appt with him. Adult heal th examination 494679368 Z00.00 Mild inter mittent asthma 653042774 J45.20 Lumbago with sciatica 20 2085580 M54.40 Essential hypertension 15117981 I10 takes losartan, but has stopped metoprolol . Patient advised to limit salt and caffeine intake to maintain good blood pressure. Acute sinusitis 00950138 J01.90 Cigarette smoker 6729279 7 F17.210 Depression screening 171 079843 Z13.31 patient does not appear to be significan tly depressed. [id number] Brittanie Baires [facility] [address] [place] [address] 06/09/2021 09:41:31 06/10/2021 08:00:07 Adult health examination 052713770 Z00.00 Long-term drug therapy 182513927 Z79.652 [id number] Hollis Dash PA-C [facility] [address] [place] [address] 06/25/2021 08:00:32 06/30/2021 06:20:50 Asthma 647572399 J45.909 Chronic ob structive pulmonary disease 57783673 J44.9 Peripheral vascular disease 126287775 I73.9 Tick bite 89556229 W57.X XXA Essential hypertension 92699982 I10 Lumbago with sciatica 20 2041643 M54.40 Diabetes mellitus 746041 09 E11.9 [id number] JOSE BLANCO [facility] [address] [facility] [address] 07/09/2021 08:12:23 07/14/2021 10:04:06 Chronic obstructive pulmonary disease 25157929 J44.9 Patient with COPD exacerbati on. recently [...] exac erbation of chronic obstructive pulmonary disease 452087234 J44.1 Patient has wheezing. finished with steroid. [...] <170)- Pulmonolog ist Seasonal a llergic rhinitis 456352934 J30.2 refill [id number] JOSE BLANCO [facility] [address] [place] [address] 07/09/2021 09:54:19 07/09/2021 15:29:58 [id number] Jasson Dawn MD [facility] [address] [place] [address] 09/15/2021 08:35:55 09/17/2021 10:35:36 Chronic obstructive pulmonary disease 93947637 J44.9 advised smoking cessation. .. Diabetes mellitus 911041 09 E11.9 pod seen last week and eye appt this week... labs Essential hypertension 35096044 I10 meds and follow up... Hyperlipidemia 78969067 E78.5 on Zetia per cardiology ... Osteoarthritis 490407199 M19.90 meds and follow up... refill and refer to pain management if needed Obesity 516380766 E66.9 diet and exercise Peripheral vascular disease 569167551 I73.9 smoking cessation and plavix/exe rcise.. Screening mammography 24 319559 Z12.31 order Chronic otitis media 211 67634 H66.90 refer [id number] JOSE PARDO [facility] [address] [place] [address] 09/25/2021 16:19:42 09/26/2021 09:58:03 Viral upper respiratory tract infection 111709183 J06.9 wet cough, congestion , rhinorrhea , [...] 20 mg x1 wk Bilateral hearing loss 87744867 H91.93 h/o chronic hearing lossperfor ated R TM, T tube to L TM x9 yrssaw ENT yesterdayn eeds referral for hearing test [id number] JOSE PARDO [facility] [address] [place] [address] 10/16/2021 08:08:57 10/20/2021 10:45:33 Viral upper respiratory tract infection 124360402 J06.9 10/17/21: cough, sore throat, nasal congestion [...] prednisone 20 mg x1 wk Viral syndrome 418716889 B34.9 [id number] Matti Paris MD [facility] [address] [place] [address] 08/04/2022 12:26:19 08/05/2022 11:36:13 Acute sinusitis 34975106 J01.90 Acute otitis media 76803 03 H66.92 [id number] Matti Balderas MD [facility] [place] [facility] [place] [address] [facility] [address] [place] [address] 10/05/2024 09:37:24 10/06/2024 14:35:39 Chronic obstructive pulmonary disease 29373876 J44.9 conditon chorin cand at goal continue the albuterol inhaler and neb Diabetes mellitus 491505 09 E11.9 conditon chroic nad at ogal continue the metformin Essential hypertension 31418979 I10 conditon chronic and at goal continue hte losartin Malignant neoplasm of urinary bladder 628399308 C67.9 condiotn aucte getting bcg adn follow wi urology Atheroscle rosis of coronary artery without angina pectoris 3986816345 75292 I25.10 conditon chronic and at goal with afib. continue wtih the aguilar and the eliquis Hypercholesterolemia 136 08675 E78.00 conditon chronic and at goal continue the zetia and repatha Smoker 80118305 F17.200 conditon chroinc and not at goal wean 1 cig per week. Osteoarthritis 921464210 M19.90 [id number] [facility] [place] [address] [facility] [address] [place] [address] 11/30/2024 10:01:01 12/01/2024 12:36:45 Pneumonia caused by SARS-CoV-2 9295406360 19492678 J12.82 conditoin acute and improving order cxr at [facility] Nausea 184854107 R11.0 conditoin acute due to covid. ordedr promehtazi ne for nasuea Atheroscle rosis of coronary artery without angina pectoris 4994886936 36347 I25.10 conditon chronic and at goal with afib. continue wtih the aguilar and the eliquis Diabetes mellitus 459280 09 E11.9 conditon chroic nad at ogal continue the metformin Hypotensive episode 6776 3001 I95.9 conditon acute continue hte midodrine Chronic ob structive pulmonary disease 47322645 J44.9 conditon chorin cand at goal continue the albuterol inhaler and neb Hypercholesterolemia 136 25230 E78.00 conditon chronic and at goal continue the zetia and repatha Smoker 84595141 F17.200 conditon chroinc and not at goal wean 1 cig per week. Degenerati on of lumbar intervertebral disc 94950377 M51.369 conditon choinc and not at goal order tramadol 50 mg tid and refer to lucy 1902140 aMtti Balderas MD [facility] [place] [facility] [place] [address] [facility] [address] [place] [address] 2024 10:39:13 01/01/2025 09:46:50 Acute sinusitis 18299846 J01.90 conditon acute states that she is no longer allergic to pcn. order rocephin, kenalog 80 mg, medrol dose pack, clindamyci n Chronic ob structive pulmonary disease 37602927 J44.9 conditon chorin cand at goal continue the albuterol inhaler and neb order a nebulizer machine Essential hypertension 36355983 I10 conditon chronic and at goal continue hte losartin Atheroscle rosis of coronary artery without angina pectoris 9725385222 90981 I25.10 conditon chronic and at goal with afib. continue wtih the aguilar and the eliquis Hypercholesterolemia 136 11150 E78.00 conditon chronic and at goal continue the zetia and repatha Smoker 73097098 F17.200 conditon chroinc and not at goal wean 1 cig per week. Health Concerns Section Related Observation LastModified by Organization Detai ls LastModified Time None Recorded Concern Status LastModified by Organization Details LastModified Time None Recorded Advance Directives Directive N: Payers Encounter Date Sequence Insurance Name Policy Number Policy Larsen Covered Member ID Larsen Member ID Guarantor Name 10/16/2021 1 [facility] ON OR AFTER 05/15/21 (MEDICAID REPLACEMENT - HMO) Rody Gelso [id number] Rody Gelso 08/04/2022 1 [facility] ON OR AFTER 05/15/21 (MEDICAID REPLACEMENT - HMO) Rody Gelso [id number] Rody Gelso 10/05/2024 1 [facility] ON OR AFTER 05/15/21 (MEDICAID REPLACEMENT - HMO) Rody Gelso [id number] Rody Gelso 11/30/2024 1 [facility] ON OR AFTER 05/15/21 (MEDICAID REPLACEMENT - HMO) Rody Zaidi [id number] Rody Zaidi 2024 1 [facility] ON OR AFTER 05/15/21 (MEDICAID REPLACEMENT - HMO) Rody Zaidi [id number] Rody Zaidi Notes Date Note Type Note Provider Name and Address Organization Details Recorded Time 10/16/2021 text/html Phone visit due to coronavirus [...] or headaches. JOSE PARDO Attn: Accounting[address] [place], [address], [facility] 10/17/2021 10:08:39 08/04/2022 text/html patient complaining of nasal congestion and drainage. She has had a problem with sinusitis in the past. It has been going on for 2 or 3 months at this time. She is also complaining of blockage of her left ear with some drainage. She has had a tube in that ear almost 10 years ago. Matti Paris MD [address] [place], [address], [facility] 08/04/2022 12:40:41 10/05/2024 text/html presents to the office for initial evaluation has bladder cancer and is being treated by urology has copd and dm the htn is under control is a smoker the gerd is under control has afib and sees dr [facility] Matti Balderas MD Attn: Accounting[address] [place], [address], [facility] 10/05/2024 17:20:45 11/30/2024 text/html states that she was admitted for covid and covid pneumnia is on the midodrine for hte low blood pressure. hte cad is under contrl the copd is under contrl the chol is treated the bs are under control continues to smoke. has the nausea is not under control Matti Balderas MD Attn: Accounting[address] [facility], [place], [address], [facility] 11/30/2024 19:39:51 2024 text/html staets that she was admitted for double pneumonia. states that the asthma is under contrl the cad and hte copd is under contlr hte bs and hte htn is under control states that she has gayle cough with sinus drainge. Matti Balderas MD Attn: Accounting[address] [facility], [place], [address], [facility] 2024 15:04:30 OBGyn Episode No OBEpisode recorded.
--- OUTSIDE RECORDS SUMMARY | 2025-01-05 11:19 | XMS_ITS | Encounter Summary ---
Author Organization [facility] Address [address] [facility] [place] [address] Care Team Providers Care Pharmacist In Charge Owner Name Role Phone Neva Holden MD Primary Care Provider [phone] Deisi Andrews MD Primary Care Provider [phone] Matti Balderas MD Primary Care Provider Encounter Details Date Type Department Care Team (Late st Contact Info) Description 02/13/2022 Lab Requisition [facility] Care Pathology Lab [address] [place] [address] Jose Oliver MD [address] [place] [address] Illness, unspecified Social History Tobacco Use Types [...] (Late Contact Info) Description 01/19/2025 11:30 AM TELEGRAPH OPERATOR Procedure visit [facility] - Urology [address] [place] [address] [address] [place] [address] Jose Oliver MD [address] [address] documented as of this encounter Goals Goal [...] Diagnosis A. Urinary bladder, transurethral resection, (OSC: [id number]; 01/21/2022): - Invasive urothelial cell carcinoma, high-grade - No definitive detrusor muscle seen B. Urinary bladder, left ureteral orifice transurethral resection, (OSC: [id number]; 01/21/2022): - Invasive urothelial cell carcinoma, high-grade - Detrusor muscle present, negative for tumor invasion 02/16/2022 1:52 PM CDT [facility] Microscopic Description and Comment Performed. 02/16/2022 1:52 PM CDT [facility] Clinical History 02/16/2022 1:52 PM CDT [facility] Materials Received Received are 3 slide(s) labeled [id number] along with a copy of the outside pathology report. The materials originate from [facility], Department of Pathology, [address] [place] [address], [address]. All original materials are returned to the referring institution, along with a copy of our final report. 02/16/2022 1:52 PM CDT [facility] PATHOLOGY LAB Disclaimer The performance characteristics of all immunohistochemical and indirect immunofluorescence stains (if any) cited in this report were determined by the Histopathology Laboratory of [facility]. Some of these tests were developed by [...] attending (teaching) pathologist. 02/16/2022 1:52 PM CDT [facility] PATHOLOGY LAB Case Report Surgical Pathology Report Case: [id number] Authorizing Provider: Jose Oliver MD Collected: 02/13/2022 08:57 AM Ordering Location: [facility] Pathology Lab Received: 02/13/2022 08:57 AM Pathologist: Gian Jay MD Specimen: Slide Consultation 02/16/2022 1:52 PM CDT [facility] PATHOLOGY LAB Embedded Images 02/16/2022 1:52 PM CDT [facility] PATH[facility]Y LAB Pathology/Cytolo gy SURGICAL PATHOLOGY CONSULTATION AND REPORT ON REFERRED SLIDES PREPARED ELSEWHERE / Unknown 02/13/2022 8:57 AM CDT 02/13/2022 8:57 AM CDT Jose Oliver MD LAB - PATHOLOGY/CY TOLOGY ORDERABLES Performing Organization Address [facility] Co de Phone Number [facility] PATHOLOGY LAB [address] [phone] documented in this encounter Visit Diagnoses Diagnosis Illness, unspecified documented in this encounter Care Teams Pharmacist In Charge Owner Relationship Specialty Start Date End Date Neva Holden MD [address] [place] [address] [place] [address] PCP - General 05/06/20 05/25/23 Deisi Andrews MD [address] [place] [address] [place] [address] PCP - General Family Medicine 05/26/23 10/26/24 Matti Balderas MD [address] [place] [address] PCP - General Family Medicine 10/27/24 documented as of this encounter
--- OUTSIDE RECORDS SUMMARY | 2025-01-05 11:19 | XMS_ITS | Encounter Summary ---
Author Organization [facility] Address [address] [facility] [place] [address] Care Team Providers Care Senior Data Warehouse Architect Name Role Phone Deisi Andrews MD Primary Care Provider [phone] Matti Balderas MD Primary Care Provider [phone] Reason for Visit * Reason Onset Date Comments Med Question 09/13/2024 Appointment 09/13/2024 Encounter Details Date Type Department Care Team (Late st Contact Info) Description 09/13/2024 Telephone [facility] - Centralized Scheduling [address] [place] [address] Jose Oliver MD [address] [place] [address] Med Question; Appointment Social History [...] st Contact Info) Description 01/19/2025 11:30 AM COMBINATION WINDOW INSTALLER Procedure visit [facility] - Urology [address] [place] [address] [address] [place] [address] Jose Oliver MD [address] [place] [address] documented as of this encounter Goals Goal [...] filedocumented in this encounter Care Teams Senior Data Warehouse Architect Relationship Specialty Start Date End Date Deisi Andrews MD [address] [place] [address] PCP - General Family Medicine 05/26/23 10/26/24 Matti Balderas MD [address] [place] [address] PCP - General Family Medicine 10/27/24 documented as of this encounter
--- OUTSIDE RECORDS SUMMARY | 2025-01-05 11:19 | XMS_ITS | Encounter Summary ---
Author Organization [facility] Address [address] [place] [address] Care Team Providers Care Historic Clothing And Costume Maker Name Role Phone Asa Mcnamara MD Unavailable [phone] Neva Holden MD Primary Care Provider [phone] Deisi Andrews MD Primary Care Provider [phone] Neva Holden MD Primary Care Provider [phone] Encounter Details Date Type Department Care Team (Late st Contact Info) Description 11/01/2019 [facility] at [address] [address] Rafael Thakur MA Social History Tobacco Use Types Packs/Day Years Used Date Smoking Tobacco: Every Day Cigarettes Smokeless Tobacco: Never Comments:1 pk day Alcohol Use Standard Drinks/Week Comments No 0 (1 standard drink = 0.6 oz pur e alcohol) Comments Unknown Sex and Gender Information Value Date Recorded Sex Assigned at Female 12/06/2019 3:36 PM CLERICAL STOCK INSPECTOR Legal Sex Female 5:20 PM CDT Gender Identity Female 12/06/2019 3:36 PM CLERICAL STOCK INSPECTOR Sexual Orientation Straight 12/06/2019 3: 36 PM CLERICAL STOCK INSPECTOR Occupation Industry Job Start Date Job [...] filedocumented in this encounter Care Teams Historic Clothing And Costume Maker Relationship Specialty Start Date End Date Neva Holden MD [facility] [address] [place] [address] PCP - General FAMILY PRACTICE 10/15/19 12/05/19 Deisi Andrews MD [address] [place] [address] PCP - General FAMILY PRACTICE 12/06/19 02/13/20 Neva Holden MD [facility] [address] [place] [address] PCP - General FAMILY PRACTICE 02/14/20 Asa Mcnamara MD [facility]. [facility] [address] [place] [address] [place] [facility] CARDIOVASCULAR DISEASE 05/15/16 documented as of this encounter
--- OUTSIDE RECORDS SUMMARY | 2025-01-05 11:19 | XMS_ITS | Clinical Summary ---
Author Organization [facility] Address [address] [facility] [place] [address] Care Team Providers Care Ruling Machine Set Up Operator Name Role Phone Matti Balderas MD Primary Care Provider [phone] Source Comments [facility],non-owned Affiliates and Associated Physician Practices is amultiple site organization consisting of ambulatory clinics and hospital sitesin [place], [place], [place] and [place]. This disclosure is being madepursuant to the Care Everywhere program and may not contain all information available regarding this patient. Last updated 18.[facility] Allergies Active Allergy Reactions Criticality Noted Date [...] meal 7 Active vitamin D, ergocalciferol, (DRISDOL) 81370 UNITS capsule Take 1 (one) capsule by [...] Arechiga (recurrent major depressive disorder) in remission ([facility]) Apply 1 (one) patch to skin once daily 30 patch 2 4 Active nicotine (Nicotrol) 10 MG inhalerIndications: MDD (recurrent major depressive disorder) in remission ([facility]) Inhale 10 mg by mouth as needed [...] alignant neoplasm of urinary bladder, unspecified site ([facility]),Bladder spasms,Urinary frequency Take 1 (one) [...] Problem Noted Date Diagnosed Date CAD in karuk artery 10/24/2020 MDD (recurrent major depressive disorder) [...] Team Description 12/19/2024 Travel 10/27/2024 1:30 PM STACKER TENDER Procedure visit [facility] - Urology [address] [place] [address] [address] [place] [address] Jose Oliver MD Malignant neoplasm of urinary bladder, unspecified site (HCC) 10/27/2024 Travel from Last 3 Months Immunizations Name Administration Dates Next Due INFLUENZA VACCINE, TRIV. (AF LURIA, FLUZONE TRIVALENT; 6MO+) (IIV3) 12/16/2015 Covid DotBlu primary monoval ent 12+ yr 0.3mL Purple [...] Comments Blood Pressure 142/84 12/19/2024 9:31 AM STACKER TENDER Pulse 88 12/19/2024 9:31 AM STACKER TENDER Temperature 36.5 C (97.7 F) 12/19/2024 9:31 AM STACKER TENDER Respiratory Rate 18 10/27/2024 2:11 PM STACKER TENDER Oxygen Saturation 96% 12/19/2024 9:31 AM STACKER TENDER Inhaled Oxygen Concentration 21% 06/21/2024 8 :20 AM CDT Weight 77.6 kg (171 lb) 12/19/2024 9:31 AM STACKER TENDER Height 160 cm (5' 3 ) 10/27/2024 2:11 PM STACKER TENDER Body Mass Index 30.29 10/27/2024 2:11 PM STACKER TENDER Plan of Treatment Upcoming Encounters Date Type Department Care Team (Late st Contact Info) Description 01/19/2025 11:30 AM STACKER TENDER Procedure visit [facility] - Urology [address] [place] [address] [address] [place] [address] Jose Oliver MD [address] [place] [address] Health Maintenance Due Date Last Done Comments [...] last dose Medical Devices Implanted Type Area Environmental Test Technician Device Identifier Shelf Expiration Date Model / Serial / Lot Stent Trchbr 10mm 7fr 38mm 80cm Cvr Cath Implanted:Qty: 1 on 09/04/2020 by Jose A Clark MD at [facility] N/A: Abdomen Getinge [employer] 04/05/2023 [id number] / / [id number] Stent Trchbr 8mm 7fr 38mm 80cm Cvr Cath Implanted:Qty: 1 on 09/04/2020 by Jose A Clark MD at [facility] N/A: Abdomen Getinge [employer] 05/22/2023 [id number] / / [id number] Procedures Procedure Name Priority Date/Time Associated Diagnosis Comments URINALYSIS AUTO - POINT OF CARE (AMB) [facility] Routine 10/27/2024 2:13 PM STACKER TENDER Malignant neoplasm of urinary bladder, unspecified site (HCC) BASIC METABOLIC PANEL (CALCIUM TOTAL) STAT 06/28/2024 3:17 PM CDT HEMOGLOBIN A1C Routine 11/22/2023 10:36 AM STACKER TENDER Pre-op exam from Last 3 Months or Most Recently Relevant to Health Maintenance Results * URINALYSIS AUTO - POINT OF CARE (AMB) [facility] (10/27/2024 2:13 PM STACKER TENDER) Glucose UA neg [facility] [address] Bilirubin UA POCT neg [facility] [address] Ketones UA POCT neg [facility] [address] Specific [place] UA 1.[address] [facility] [address] Blood Urine POCT neg [facility] [address] pH UA 5.5 [facility] [address] Protein UA neg [facility] [address] Urobilinogen UA 0.2 [facility] [address] Nitrite UA neg [facility] [address] WBC UA neg [facility] [address] Urine URINE / Unknown 10/27/2024 2 :13 PM STACKER TENDER Jose Oliver MD LAB - POINT OF CAR E ORDERABLES [facility] [address] [place] [address], [facility] [phone] * BASIC METABOLIC PANEL (CALCIUM TOTAL) (06/28/2024 3:17 PM CDT) BUN 15 7 - 26 mg/dL 06/28/2024 3:51 PM [facility] Creatinine 0.69 0.56 - 0.96 mg/dL 06/28/2024 [...] 8.4 - 10.2 mg/dL 06/28/2024 3:51 PM [facility] Anion Gap 9 6 - 16 06/28/2024 3:51 PM [facility] BUN/Creatinine Ratio 22 7 - 23 06/28/2024 3:51 PM [facility] Osmolality Calculated 287 275 - 295 mOsm/kg 06/28/2024 3:51 PM [facility] eGFR by CKD-EPI >90 >=90 mL/min/1.7 3 m2 06/28/2024 3:51 PM CDT [facility] Blood BLOOD SPECIMEN / Unknown Venipuncture / Unknown 06/28/2024 3:17 PM CDT 06/28/2024 3:26 PM CDT Martir Choi MD LAB - CHEMISTRY BASSAM CONTRERAS [facility] [address] [place] [address], [place] [phone] * (ABNORMAL) HEMOGLOBIN A1C [IN-HOUSE TEST] (11/22/2023 10:36 AM STACKER TENDER) Hemoglobin A1c 6.4(H) <=5.6 % 11/22/2023 12:05 PM [facility] Estimated Average Glucose 137 mg/dL 11/22/2023 12:05 PM [facility] Comment: HbA1c Interpretation: Normal : < 5.7% Pre-diabetes: 5.7-6.4% Diabetes: Equal to or greater than 6.5% Test results diagnostic of diabetes should be repeated for confirmation. Treatment target values recommended by ADA and other clinical organizations should be used to evaluate metabolic control in patients. Reference: [place] Diabetes Association, Standards of Care in Diabetes -2020 In patients 70 years and older consider HbA1c target range of 7.0-7.5% (Reference: Montez Rosas, et al. JAMDA. 2012) The Sebia assay for the measurement of HbA1c is a National Glycohemoglobin Standardization Program (NGSP) certified method. Blood BLOOD SPECIMEN WITH EDTA / Unknown Lab Venipuncture / Unknown 11/22/2023 10:36 AM STACKER TENDER 11/22/2023 10:42 AM STACKER TENDER Jasmin Moore DRAIN TILE PRESS OPERATOR-THEATRICAL PERFORMER LAB - CHEMISTRY ORDERABLES [facility] [address] [place] [address], [place] [phone] from Last 3 Months or Most Recently Relevant to Health Maintenance Advance Directives * Full Code (Latest Code Status on File) Date Activated Date Inactivated Comments 10/24/2020 10:10 AM 10/24/2020 6:00 PM Care Teams Ruling Machine Set Up Operator Relationship Specialty Start Date End Date Matti Balderas MD [address] [facility] [address] [place] [address] PCP - General Family Medicine 10/27/24
--- OUTSIDE RECORDS SUMMARY | 2025-01-05 11:19 | XMS_ITS | Clinical Summary ---
Author Organization [facility] Address [address] [place] [address] Care Team Providers Care Properties Supervisor Name Role Phone Provider, Abstract Primary Care [...] tablet Take 30 mg by mouth daily investigative assistant. Active losartan (COZAAR) 100 mg tablet Take [...] d or Tdap) 05/27/2031 05/27/2021, 01/31/2019 Insurance [id number] MEDICAID Care Teams Properties Supervisor Relationship Specialty Start Date End Date Provider, Abstract NO ADDRESS ON FILE PCP - General 03/24/19
--- OUTSIDE RECORDS SUMMARY | 2025-01-05 11:19 | XMS_ITS | Encounter Summary ---
Author Organization [facility] Address [address] [facility] [place] [address] Care Team Providers Care Prime Minister Name Role Phone Neva Holden MD Primary Care Provider [phone] Deisi Andrews MD Primary Care Provider [phone] Matti Balderas MD Primary Care Provider [phone] Encounter Details Date Type Department Care Team (Late st Contact Info) Description 02/13/2022 Lab Requisition [facility] Care Pathology Lab [address] [place] [address] Jose Oliver MD [address] [place] [address] Illness, unspecified Social History Tobacco Use Types [...] (Late Contact Info) Description 01/19/2025 11:30 AM INTRAMURAL DIRECTOR Procedure visit [facility] - Urology [address] [place] [address] [address] [place] [address] Jose Oliver MD [address] [place] [address] documented as of this encounter Goals Goal [...] unspecified documented in this encounter Care Teams Prime Minister Relationship Specialty Start Date End Date Neva Holden MD [address] [place] [phone] PCP - General 05/06/20 05/25/23 Deisi Andrews MD [address] [place] [address] [place] [phone] PCP - General Family Medicine 05/26/23 10/26/24 Matti Balderas MD [address] [place] [address] PCP - General Family Medicine 10/27/24 documented as of this encounter
--- OUTSIDE RECORDS SUMMARY | 2025-01-05 11:19 | XMS_ITS | Clinical Summary ---
Author Organization [facility] cummins Address [address] [place] [address] Phone Care Team Providers Care Head Of Strategy Name Role Phone Unavailable Primary Care Provider [...] Comments Blood Pressure 138/84 01/15/2016 12:01 AM PRIMARY SCHOOL TEACHER LIBRARIAN Ri ght Pulse - - Temperature 36.3 C (97.3 F) 01/15/2016 12:01 AM PRIMARY SCHOOL TEACHER LIBRARIAN Respiratory Rate - - Oxygen Saturation - - Inhaled Oxygen Concentration - - Weight 102 kg (225 lb) 01/15/2016 12:01 AM PRIMARY SCHOOL TEACHER LIBRARIAN Height 157.5 cm (5' 2 ) 01/15/2016 12:01 AM PRIMARY SCHOOL TEACHER LIBRARIAN Body Mass Index 41.15 01/15/2016 12:01 AM PRIMARY SCHOOL TEACHER LIBRARIAN Plan of Treatment Not on file
--- OUTSIDE RECORDS SUMMARY | 2025-01-05 11:19 | XMS_ITS | Clinical Summary ---
Author Organization [facility] Address [address], [facility] [address] [place] [address] Phone Care Team Providers Care Soap Mixer Name Role Phone Olu Nieto APRN, WIRELESS INTERNET INSTALLER Primary Care Provider Allergies Active Allergy [...] Maintenance Insurance MEDICAID [employer] [address] [place] [id number] Care Teams Soap Mixer Relationship Specialty Start Date End Date Olu Nieto, SECURITY ARCHITECT, WIRELESS INTERNET INSTALLER [address] [address] PCP - General Certified Nurse Practitioner 11/02/18
== END 2025-01-05 10:46 | disposition home or self-care (01) ==
PROVIDERS: PCP Family Medicine; Visit Provider Pain Medicine Pain Medicine
DX: M43.02 Spondylolysis, cervical region (principal)
CPT/HCPCS: 72040

== ENCOUNTER 2025-02-14 12:10 | Emergency (ER) | payer OTHER, SELFPAY ==
[2025-02-14 12:14] VITALS: BP 133/86; PULSE 82; RESP 18; TEMP 36.3; O2SAT 100
[2025-02-14 12:20] VITALS: PULSE 82; RESP 18; O2SAT 100
--- NOTE | 2025-02-14 12:39 | ED_ITS ---
HPI - URI/Sore Throat General Chief Complaint: Upper Respiratory Infection Stated Complaint: Sinus Time Seen by Provider: 02/14/25 12:12 Source: patient and RN notes reviewed Mode of arrival: ambulatory Limitations: no limitations History of Present Illness HPI Narrative: 64-year-old female presents to the [facility] complaining of upper respiratory symptoms for the last 2 weeks. She reports that she is having a sore throat, cough, congestion, chest congestion, facial pressure in her sinuses, and right ear fullness. She reports she has been doing xcrb-kag-kdgqzcd treatment this seems to help a little bit but she is not getting any better. He was in the hospital at the beginning of the year for co both COVID and pneumonia and was discharged. She denies any chest pain or chest pressure, or difficulty breathing. She has a history of kidney disease, atrial fibrillation, previous CVA. Related Data Home Medications ?Medication ?Instructions ?Recorded ?Confirmed ?Last Taken ?Type clopidogrel 75 mg tablet 75 mg PO DAILY 05/20/21 12/01/24 11/30/24 History trazodone 50 mg tablet 50 mg PO HS PRN Insomnia 08/07/23 12/01/24 11/30/24 H istory lorazepam 0.5 mg tablet 0.5 mg PO TID 08/26/23 12/01/24 11/30/24 History metformin 500 mg tablet 500 mg PO BID 08/26/23 12/01/24 11/30/24 History ezetimibe 10 mg tablet 10 mg PO DAILY 09/23/23 12/01/24 11/30/24 History budesonide-formoterol HFA 160 See Rx Instructions .Route .COMPLEX 10/25/23 12/01/24 11/30/24 History mcg-4.5 mcg/actuation aerosol inhaler (Symbicort) ergocalciferol (vitamin D2) 1,250 50,000 unit PO WEEKLY 10/25/23 12/01/24 11/27/24 History mcg (50,000 unit) capsule cromolyn 4 % eye drops 1 drp EACH EYE DAILY 03/02/24 12/01/24 11/30/24 History evolocumab 140 mg/mL subcutaneous 140 mg subcut MONTHLY 03/02/24 12/01/24 11/19/24 History pen injector (Repathmarta Bolañosick) fluticasone propionate 50 1 spray intranasal DAILY 03/02/24 12/01/24 11/30/24 History mcg/actuation nasal spray,suspension albuterol sulfate 2.5 mg/3 mL 2.5 mg inhalation Q6H PRN 11/05/24 12/01/24 11/30/24 History (0.083 %) solution for nebulization shortness of breath or wheezing fenofibrate 120 mg tablet 120 mg PO DAILY 11/05/24 12/01/24 11/30/24 History montelukast 10 mg tablet 10 mg PO QPM 11/05/24 12/01/24 11/30/24 History sotalol 80 mg tablet 120 mg PO Q12HR 12/01/24 12/01/24 11/30/24 History blood-glucose meter (OneTouch 02/14/25 02/14/25 Unknown History Ultra2 Meter) clonazepam 0.5 mg tablet mg 02/14/25 Unknown History fluoxetine 20 mg capsule mg 02/14/25 Unknown History gabapentin 300 mg capsule mg 02/14/25 Unknown History lancets 28 gauge (Safety Lancets) 02/14/25 02/14/25 Unknown History lancets 30 gauge 02/14/25 02/14/25 Unknown History losartan 100 mg tablet mg 02/14/25 Unknown History Allergies Allergy/AdvReac Type Severity Reaction Status Date / Time haloperidol Allergy Unknown Other Verified 02/14/25 12:12 risperidone Allergy Unknown MY MOUTH Verified 02/14/25 12:12 TIGHTENS UP -TD simvastatin Allergy Unknown Other Verified 02/14/25 12:12 Jmnnkpt-HIP-PiZ Reductase Allergy Other Verified 11/07/24 14:05 Inhibitor codeine AdvReac Unknown NAUSEA AND Verified 11/07/24 14:05 VOMITING triazolam AdvReac Unknown N/V Verified 11/07/24 14:05 Wasp Allergy Unknown WASP Uncoded 02/14/25 12:12 STING- CLOSES MY THROAT Review of Systems Review of Systems: CONSTITUTIONAL: Denies fever, chills, or sweats. EYES: Denies visual changes, redness, or discharge. ENT: Positive for, congestion, sore throat, and right ear fullness.. Negative for rhinorrhea or otalgia CARDIOVASCULAR: Denies chest pain, palpitations, or edema. RESPIRATORY: Positive for cough and negative for dyspnea. GASTROINTESTINAL: Denies abdominal pain, nausea, vomiting, or diarrhea. GENITOURINARY: Denies dysuria or hematuria. SKIN: Denies rash or itching. MUSCULOSKELETAL: Denies back pain, joint pain, or myalgia. NEUROLOGIC: Denies headache, numbness, or weakness. PSYCHIATRIC: Denies anxiety or depression. All other systems reviewed are negative, except as documented in HPI. [facility] Past Medical History Medical History Abdominal pain Pneumonia Colon polyps Hemorrhoid Paroxysmal atrial fibrillation History of diverticulitis Osteoarthritis Tobacco dependence Bladder cancer Hypertension Peripheral arterial disease Type 2 diabetes mellitus Gastroesophageal reflux disease Obstructive sleep apnea Cerebrovascular accident Chronic obstructive pulmonary disease Bipolar disorder Coronary artery disease Anxiety Hyperlipidemia Macular degeneration History of gastroesophageal reflux (GERD) History of diabetes mellitus History of COPD History of bladder cancer Surgical History Surgical History History of transurethral resection of bladder tumor (TURBT) History of vascular surgery Bilateral iliac stent. History of section History of cardiac catheterization History of left-sided carotid endarterectomy History of carpal tunnel release History of colonoscopy History of esophagogastroduodenoscopy (EGD) History of cholecystectomy Family History Family History Sibling Diabetes mellitus Family history of malignant neoplasm Heart disease Social History Social History Smoking packs per day: 2 Smoking cigarettes per day: 40.0 Years smoked: 30 Smoking pack-years: 60.00 Smoking status: Former smoker Second hand tobacco smoke exposure: No Additional smoking assessment comments: pt. was smoking 3 packs a day and has cut down to half a pack daily Alcohol intake: former Substance use: current Substance use type: marijuana Last use: 11/29/23 Do You Feel Safe in your Home?: Yes Lack of Transportation: No Lack of Food: Never True Current Housing: I Have Housing Concerned About Future Housing: No Difficulty Paying Gas/Electric Bills: No Difficulty Paying for Meds: No Currently Unemployed: No Education: High School Diploma/GED Difficulty w/ Childcare or Family Care: No Living arrangements: alone Spiritual care concerns: No Comments At the time of my signature, I reviewed and agree with the nursing past medical, surgical, social, and family history. There is no relevant family history pertinent to the patient complaint. Exam Narrative: GENERAL: This is a well-nourished, well-developed adult, in no apparent distress. They are non ill-appearing, nontoxic appearing. HEAD: normocephalic, atraumatic. EYES: Sclera clear/white. Vision is grossly intact. EARS: External ears normal, auditory canals clear and without erythema, right ear effusion present, right TM without erythema or perforation, left TM with ear tube in place it is patent, no erythema or perforation.Hearing grossly intact. NOSE: External nose normal with no obvious nasal discharge, nasal turbinates are injected, no rhinorrhea. There is sinus tenderness to palpation to the frontal and maxillary sinuses. THROAT: Mucous membranes moist, posterior pharynx without erythema, uvula midline, postnasal drip present. NECK: Neck supple, non-tender without lymphadenopathy, masses or thyromegaly. CARDIOVASCULAR: Regular rate and rhythm without murmurs, gallops, or rubs. RESPIRATORY: Clear to auscultation. Breath sounds equal bilaterally. No wheezes, rales, or rhonchi. SKIN: warm, Dry, intact with no suspicious lesions or rash, good texture and turgor. NEURO: awake, alert, and oriented to person, place and time. There were no obvious focal neurologic abnormalities. EXTREMITIES: No joint tenderness, effusion, or edema noted. BACK: Nontender without deformity. Course Course Level of Care: Express Care Visit Vital Signs Vital signs: Vital Signs Temperature 97.3 F L 02/14/25 12:14 Pulse Rate 82 02/14/25 12:14 Respiratory Rate 18 02/14/25 12:14 Blood Pressure 133/86 02/14/25 12:14 Pulse Oximetry 100 02/14/25 12:14 Oxygen Delivery Room Air 02/14/25 12:14 Temperature 97.3 F L 02/14/25 12:14 Pulse Rate 82 02/14/25 12:14 Respiratory Rate 18 02/14/25 12:14 Blood Pressure 133/86 02/14/25 12:14 Pulse Oximetry 100 02/14/25 12:14 Oxygen Delivery Room Air 02/14/25 12:14 Reviewed MDM - URI/Sore Throat MDM Narrative Medical decision making narrative: Symptoms have been consistent for the last 2 weeks without improvement. Patient has tried bskl-zpm-nfbhrqi treatment as well. Symptoms are likely consistent with a bacterial sinus infection, will treat empirically with Augmentin. Discussed physical exam findings. Advised supportive measures and signs/symptoms to go to the ER. Pt is appropriate for outpt treatment and f/u. Differential Diagnosis Differential diagnosis: Likely upper respiratory infection, otitis media, sinusitis and viral infection Critical Care Time Critical Care Time Critical Care Time: No Discharge Plan Discharge Clinical Impression: Sinusitis Qualifiers: Sinusitis location: unspecified location Chronicity: acute Recurrence: not specified as recurrent Qualified Code(s): J01.90 - Acute sinusitis, unspecified Patient Disposition: Home, Self-Care Condition: Stable Instructions: Antibiotic Form, Sinusitis (ED) Additional Instructions: Take the antibiotics as directed and complete the course even if you start to feel better. You may use a Neti pot saline rinse 3 times a day. Return to urgent care or go to the ER for new or worsening symptoms. Continue to take Tylenol or Motrin for pain. Use a humidifier or vaporizer at night. Drink plenty of water. 8-10 glasses per day. Use flonase 2 times per day for 5 days then as needed Take mucinex 2 times per day and be sure to take with 8oz of water. Follow up with Primary provider if not getting better. Return to ER for new or worsening symptoms. Patient Language: Lebanese Prescriptions: New amoxicillin-pot clavulanate 875-125 mg tablet 1 tablet PO Q12H 7 Days Qty: 14 0RF No Action (DME) Aerochamber MV Spacer See Rx Instructions .Route Qty: 1 0RF Rx Instructions: As directed albuterol sulfate 90 mcg/actuation HFA aerosol inhaler 2 puff inhalation QID PRN (Reason: shortness of breath or wheezing) Qty: 6.7 0RF cromolyn 4 % drops 1 drp EACH EYE DAILY Repatha SureClick 140 mg/mL pen injector 140 mg SUBCUT MONTHLY Patient Comments: first Wednesday of the month fluticasone propionate 50 mcg/actuation [place],Suspension 1 spray INTRANASAL DAILY (DME) blood-glucose meter [OneTouch Ultra2 Meter] Misc MISCELLANEOUS clonazepam 0.5 mg tablet gabapentin 300 mg capsule losartan 100 mg tablet fluoxetine 20 mg capsule (DME) lancets 30 gauge misc MISCELLANEOUS (DME) lancets [Safety Lancets] 28 gauge misc MISCELLANEOUS clopidogrel 75 mg tablet 75 mg PO DAILY hydrocortisone 2.5 % cream with perineal applicator 1 applic RECTAL DAILY PRN (Reason: hemorrhoids) Qty: 30 0RF lorazepam 0.5 mg tablet 0.5 mg PO TID metformin 500 mg tablet 500 mg PO BID trazodone 50 mg tablet 50 mg PO HS PRN (Reason: Insomnia) Eliquis 5 mg Tablet 5 mg PO Q12HR Qty: 60 2RF ezetimibe 10 mg tablet 10 mg PO DAILY midodrine 2.5 mg Tablet 5 mg PO BID Qty: 60 0RF sotalol 80 mg Tablet 120 mg PO Q12HR losartan [Cozaar] 50 mg Tablet 50 mg PO DAILY Qty: 60 0RF (DME) nebulizer and compressor [Lydia Trek S Combo Pack] Device 1 ea miscellaneous DIRECTED Qty: 1 0RF sucralfate 100 mg/mL Suspension 1,000 mg PO ACHS 7 Days Qty: 280 0RF ondansetron 4 mg tablet,disintegrating 4 mg PO Q8H PRN (Reason: nausea and vomiting) Qty: 10 0RF ergocalciferol (vitamin D2) 1,250 mcg (50,000 unit) capsule 50,000 unit PO WEEKLY Rx Instructions: takes weekly on Wednesday budesonide-formoterol [Symbicort] 160-4.5 mcg/actuation HFA aerosol inhaler See Rx Instructions .ROUTE .COMPLEX Rx Instructions: 2 puff inhaled AM AND HS oxybutynin chloride 5 mg Tablet 5 mg PO TID Qty: 90 0RF montelukast 10 mg tablet 10 mg PO QPM fenofibrate 120 mg tablet 120 mg PO DAILY albuterol sulfate 2.5 mg /3 mL (0.083 %) solution for nebulization 2.5 mg inhalation Q6H PRN (Reason: shortness of breath or wheezing) magnesium oxide 400 mg (241.3 mg magnesium) Tablet 400 mg PO DAILY Qty: 7 0RF dexlansoprazole 30 mg capsule,biphase delayed releas See Rx Instructions .ROUTE .COMPLEX Qty: 30 11RF Dose Instruction: TAKE 1 CAPSULE BY MOUTH DAILY Rx Instructions: TAKE 1 CAPSULE BY MOUTH DAILY Follow-up/Referrals: Andrey,Matti Parson MD [Primary Care Provider] - Time of Disposition: 12:44
== END 2025-02-14 12:45 | disposition home or self-care (01) ==
PROVIDERS: PCP Family Medicine
DX: J01.90 Acute sinusitis, unspecified (principal); F17.210 Nicotine dependence, cigarettes, uncomplicated; I48.0 Paroxysmal atrial fibrillation; N28.9 Disorder of kidney and ureter, unspecified; M19.90 Unspecified osteoarthritis, unspecified site; I10 Essential (primary) hypertension; E11.51 Type 2 diabetes mellitus with diabetic peripheral angiopathy without gangrene; Z79.84 Long term (current) use of oral hypoglycemic drugs; I73.9 Peripheral vascular disease, unspecified; K21.9 Gastro-esophageal reflux disease without esophagitis; J44.9 Chronic obstructive pulmonary disease, unspecified; I25.10 Atherosclerotic heart disease of native coronary artery without angina pectoris; E78.5 Hyperlipidemia, unspecified; H35.30 Unspecified macular degeneration; Z85.51 Personal history of malignant neoplasm of bladder; Z86.73 Personal history of transient ischemic attack (TIA), and cerebral infarction without residual deficits; Z95.820 Peripheral vascular angioplasty status with implants and grafts
CPT/HCPCS: 99213; G0463

== ENCOUNTER 2025-05-23 08:01 | Outpatient (CLI) | payer OTHER, SELFPAY ==
--- NOTE | ~2025-05-23 | DEXA_ITS ---
Bone Density Report Name: ARNOLD CRUZ Age: 64 Sex: Female Ethnicity: White Date of : 1960 Indication: postmenopausal; screening for osteoporosis; height loss; cancer; asthma or emphysema; Referring Provider: GUILLERMO, EVELYN Ramirez Study: Bone densitometry was performed. Exam Date: May 23, 2025 Accession number: [id number] Bone Density: Region BMD T-score Z-score Classification AP Spine(L1-L4) 1.012 -0.3 1.3 Normal Femoral Neck (Left) 0.583 -2.4 -1.0 Osteopenia Total Hip (Left) 0.775 -1.4 -0.2 Osteopenia Femoral Neck (Right) 0.558 -2.6 -1.2 Osteoporosis Total Hip (Right) 0.754 -1.5 -0.4 Osteopenia Total Hip Mean 0.765 -1.5 -0.3 Osteopenia World Health Organization criteria for BMD impression classify patients as: Normal (T-score at or above -1.0), Osteopenia (T-score between -1.0 and -2.5), or Osteoporosis (T-score at or below -2.5). 10-year Fracture Risk: FRAX not reported because: Some T-score for Spine Total or Hip Total or Femoral Neck at or below -2.5 Previous Exams: Region Exam Age BMD T-score BMD Change BMD Change Date g/cm2 vs Baseline vs Previous AP Spine (L1-L4) 05/23/2025 64 1.012 -0.3 -0.053 (-5.0%) -0.053 (-5.0%) 11/11/2018 57 1.065 0.2 Total Hip(Left) 05/23/2025 64 0.775 -1.4 -0.077 (-9.1%) -0.077 (-9.1%) 11/11/2018 57 0.852 -0.7 Total Hip(Right) 05/23/2025 64 0.754 -1.5 -0.065 (-7.9%) -0.065 (-7.9%) 11/11/2018 57 0.819 -1.0 *Denotes significance at 95% confidence level, LSC for AP Spine = 0.022 g/cm2, LSC for Total Hip = 0.027 g/cm2 Clinical Information Provided by Patient: Has used the following medications: Vitamin D Has the following medical conditions: Asthma or Emphysema, Cancer, bladder ca Patient maximum height was 63.0 Menopause Age: 54 No regular weight bearing exercise Does not regularly consume dairy products Drinks caffeinated beverages Onset of menses at age 14 Number of children 2 Impression: The patient has osteoporosis, based on the Right Femoral Neck T-score. The BMD for the AP Spine (L1-L4) decreased, changing by -5.0% since the last DXA exam. The BMD for the Total Hip(Left) decreased, changing by -9.1% since the last DXA exam. The BMD for the Total Hip(Right) decreased, changing by -7.9% since the last DXA exam. Discussion: INCREASED RISK OF FRACTURE. BONE DENSITY IS UNDESIRABLY LOW AT ONE OR MORE SKELETAL SITES, CONSISTENT WITH POSTMENOPAUSAL OSTEOPOROSIS. This patient's lowest T-score meets the World Health Organization's (WHO) criteria for osteoporosis at one or more sites (T-score -2.5 or below). In untreated patients, the risk of osteoporotic fracture increases approximately two-fold for each 1.0 SD decrease in T-score. Low bone density is not the only risk factor for fracture; also consider factors such as patient's age, frailty or poor health, risk of falling, risk of injury, previous osteoporotic fracture, family history of osteoporosis, cigarette smoking, low body weight, etc. Not everyone with low bone mineral density has osteoporosis; osteomalacia and other metabolic bone disorders should also be considered. Patients who have osteoporosis should be evaluated for specific diseases and conditions (secondary causes) that may cause or contribute to bone loss. The [place] [employer] Endocrinologists (AACE) and National Osteoporosis Foundation (NOF) recommend pharmacologic intervention for all postmenopausal women whose T-score is in this range. The patient should follow a healthful lifestyle (good nutrition with adequate calcium and vitamin D, and appropriate weight-bearing exercise). Follow-Up: Consider a repeat BMD and Vertebral Fracture Assessment (VFA) exam in 2 years or sooner if medically necessary, to reassess this patient's status. Reported by: REINIER on 05/23/2025 8:46:00 AM. Reviewed, dictated and finalized at location A.
--- OUTSIDE RECORDS SUMMARY | 2025-05-23 08:10 | XMS_ITS | Encounter Summary ---
Author Organization [facility] Address [address] [place] [address] Care Team Providers Care Supervisor Pipe Joints Name Role Phone SullivanDane gonzalez DO Primary Care Provider [phone] Asa Mcnamara MD Unavailable [phone] Deisi Andrews MD Primary Care Provider [phone] Heber Adorno MD Primary Care Provider Unavailable Deisi Andrews MD Primary Care Provider [phone] Neva Holden MD Primary Care Provider [phone] Deisi Andrews MD Primary Care Provider [phone] Neva Holden MD Primary Care Provider [phone] Encounter Details Date Type Department Care Team (Late st Contact Info) Description 05/21/2016 Abstract [facility] AT [address] [address] Rafael Thakur MA Social History Tobacco Use Types Packs/Day Years Used Date Smoking Tobacco: Every Day Cigarettes Smokeless Tobacco: Never Alcohol Use Standard Drinks/Week Comments No 0 (1 standard drink = 0.6 oz pur e alcohol) Comments Unknown Sex and Gender Information Value Date Recorded Sex Assigned at Female 12/06/2019 3:36 PM AUTOMOTIVE SERVICE MANAGEMENT TEACHER Legal Sex Female 5:20 PM CDT Gender Identity Female 12/06/2019 3:36 PM AUTOMOTIVE SERVICE MANAGEMENT TEACHER Sexual Orientation Straight 12/06/2019 3: 36 PM AUTOMOTIVE SERVICE MANAGEMENT TEACHER Occupation Industry Job Start Date Job [...] filedocumented in this encounter Care Teams Supervisor Pipe Joints Relationship Specialty Start Date End Date Dane Sullivan DO PCP - General FAMILY PRACTICE 05/15/16 02/11/17 Deisi Andrews MD [address] [place] [address] PCP - General FAMILY PRACTICE 02/13/17 03/10/17 Heber Adorno MD PCP - General 03/11/17 06/14/17 Deisi Andrews MD [address] [place] [address] PCP - General FAMILY PRACTICE 06/15/17 10/14/19 Neva Holden MD [facility] [address] PCP - General FAMILY PRACTICE 10/15/19 12/05/19 Deisi Andrews MD [address] [place] [address] PCP - General FAMILY PRACTICE 12/06/19 02/13/20 Neva Holden MD [facility] [address] [place] [address] PCP - General FAMILY PRACTICE 02/14/20 Asa Mcnamara MD [facility] [address] [place] [address] Stephen Industrial Waste Treatment Technician CARDIOVASCULAR DISEASE 05/15/16 documented as of this encounter
--- OUTSIDE RECORDS SUMMARY | 2025-05-23 08:10 | XMS_ITS | Encounter Summary ---
Author Organization [facility] Address [address] [place] [address] Care Team Providers Care Spray Drier Name Role Phone Asa Mcnamara MD Unavailable [phone] Neva Holden MD Primary Care Provider [phone] Encounter Details Date Type Department Care Team (Late st Contact Info) Description 07/03/2020 Abstract [facility] at [address] [address] Rfaael Thakur MA Social History Tobacco Use Types Packs/Day Years Used Date Smoking Tobacco: Every Day Cigarettes Smokeless Tobacco: Never Comments:1 pk day Alcohol Use Standard Drinks/Week Comments No 0 (1 standard drink = 0.6 oz pur e alcohol) Comments Unknown Sex and Gender Information Value Date Recorded Sex Assigned at Female 12/06/2019 3:36 PM PAPERHANGER ASSISTANT Legal Sex Female 5:20 PM CDT Gender Identity Female 12/06/2019 3:36 PM PAPERHANGER ASSISTANT Sexual Orientation Straight 12/06/2019 3: 36 PM PAPERHANGER ASSISTANT Occupation Industry Job Start Date Job [...] filedocumented in this encounter Care Teams Spray Drier Relationship Specialty Start Date End Date Neva Holden MD [facility] [address] [place] [address] PCP - General FAMILY PRACTICE 02/14/20 Asa Mcnamara MD [facility] [address] [place] [address] [place]ar Gear Cutting Machine Set Up Operator CARDIOVASCULAR DISEASE 05/15/16 documented as of this encounter
--- OUTSIDE RECORDS SUMMARY | 2025-05-23 08:10 | XMS_ITS | Clinical Summary ---
Author Organization [facility] Address [address] [place] [address] Care Team Providers Care Train Crew Member Name Role Phone Asa Mcnamara MD Unavailable [phone] Neva Holden MD Primary Care Provider [phone] Allergies Active Allergy Reactions Criticality Noted Date Comments Codeine Nausea and Vomiting 04/05/2019 Haloperidol Seizure 05/20/2016 Ketorolac Tromethamine Unknown 04/04/2013 Penicillins Hives,Redness High 04/04/2013 Ikh-Rk-Ggw-Propyl Hybupp-Nyr-Vnalwaszf Seizure 05/20/2016 Risperidone And Related Hives,Other (see [...] tablet 1 0 Active vitamin D2, ergocalciferol, 47128 UNITS capsule Take 50,000 Units by mouth [...] (primary) hypertension PVD (peripheral vascular disease) Emphysema/COPD ([facility]) Diabetes ([facility]) Stroke ([facility]) Overview (05/20/2016): h/o Asthma ([facility]) Arthritis GERD (gastroesophageal reflux disease) [...] Assigned at Female 12/06/2019 3:36 PM SEED AND FERTILIZER SPECIALIST Legal Sex Female 5:20 PM CDT Gender Identity Female 12/06/2019 3:36 PM SEED AND FERTILIZER SPECIALIST Sexual Orientation Straight 12/06/2019 3: 36 PM SEED AND FERTILIZER SPECIALIST Occupation Industry Job Start Date Job End Date Not on file Not on file Not on file Not on file Last Filed Vital Signs Vital Sign Reading Time Taken Comments Blood Pressure 102/80 06/14/2020 1:49 PM CDT Pulse 98 06/14/2020 1:49 PM CDT Temperature 36.9 C (98.4 F) 12/07/2017 8:32 AM SEED AND FERTILIZER SPECIALIST Respiratory Rate 18 12/07/2017 8:32 AM SEED AND FERTILIZER SPECIALIST Oxygen Saturation 95% 02/21/2020 8:36 AM CDT Inhaled Oxygen Concentration - - Weight 93.9 kg (207 lb) 06/14/2020 1:49 PM CDT Height 157.5 cm (5' 2) 06/14/2020 1:49 PM CDT Body Mass Index [...] exists Hemoglobin A1C 11/01/2020 05/02/2020, 03/15, 09/24/2015 Pneumococcal Vaccine: 50+ Years (3 of 3 - PCV20 or PCV21) 10/21/2021 10/21/2016, 12/16/2015 RSV Immunization or 60+ Years (1 - Risk 60-74 years 1-dose series) 2021 COVID-19 Vaccine ( - 2023- season) 2024 Meningococcal B Vaccine Aged Out No l [...] 05/02/2020 LIPID PANEL Routine 12/19/2018 7:52 AM SEED AND FERTILIZER SPECIALIST Mixed hyperlipidemia from Last 3 Months or Most Recently Relevant to Health Maintenance Results * HEMOGLOBIN, GLYCOSYLATED (05/02/2020) HGB A1C 7.6 % 05/02/2020 us Doc [facility] LABORATORY Final Result * (ABNORMAL) LIPID PANEL (12/19/2018 7:52 AM SEED AND FERTILIZER SPECIALIST) CHOLESTEROL 173 <200 MG/DL 12/19/2018 8:[address] [facility] TRIGLYCERIDES 155(H) <150 MG/DL 12/19/2018 8:[address] [facility] HDL 44 >40.0 MG/DL 12/19/2018 8:[address] [facility] LDL (CALCULATED) 98 <100 MG/DL 12/19/2018 8:[address] [facility] NON HDL CHOLESTEROL 129 <130 MG/DL 12/19/2018 8:[address] [facility] CHOL/HDL RATIO 3.9 0.0 - 4.5 12/19/2018 8:[address] [facility] VLDL CALCULATION 31 5 - 55 MG/DL 12/19/2018 8:[address] [facility] LIPID INTERPRETATION 12/19/2018 8:[address] [facility] Comment: NIH CONCENSUS REPORT RECOMMENDATIONS: ADULT CHILD LOW RISK: CHOLESTEROL <200 <170 TRIGLYCERIDE <150 --- HDL >=60 --- LDL <100 <110 BORDERLINE: CHOLESTEROL 200-239 170-199 TRIGLYCERIDE 150-199 --- HDL 40-59 --- LDL 100-159 110-129 HIGH RISK: CHOLESTEROL >=240 >=200 TRIGLYCERIDE >=200 --- HDL <40 --- LDL >=160 >=130 12/19/2018 7:52 AM SEED AND FERTILIZER SPECIALIST Asa Mcnamara MD LABORATORY Final Result [facility] [address] [place] [address], [place] [phone] from Last 3 Months or Most Recently Relevant to Health Maintenance Insurance [facility] Care Teams Train Crew Member Relationship Specialty Start Date End Date Neva Holden MD [facility] [address] [place] [address] PCP - General FAMILY PRACTICE 02/14/20 Asa Mcnamara MD [facility]. [facility] [address] [place] [address] Mcnabb Oceanographer Physical CARDIOVASCULAR DISEASE 05/15/16
--- OUTSIDE RECORDS SUMMARY | 2025-05-23 08:11 | XMS_ITS | Patient Health Record ---
Author Organization [facility] Address [address] [place] [address] Care Team Providers Care First Assist Name Role Phone Earl Bhandari Unavailable [phone] REASON FOR REFERRAL No Information PLAN OF TREATMENT No Information Insurance Providers Payer Name Payer Address Payer Phone Subscriber Number Group Number Insured Name Patient Relationship to Insured Coverage Start Date Coverage End Date [employer] [address] [place] [phone] [id number] Rody Zaidi Self - patient is the insured
--- OUTSIDE RECORDS SUMMARY | 2025-05-23 08:11 | XMS_ITS | Encounter Summary ---
Author Organization [facility] Address [address] [place] [address] Care Team Providers Care Dental Amalgam Processor Name Role Phone Asa Mcnamara MD Unavailable [phone] Heber Adorno MD Primary Care Provider Unavailable Deisi Andrews MD Primary Care Provider [phone] Neva Holden MD Primary Care Provider [phone] Deisi Andrews MD Primary Care Provider [phone] Neva Holden MD Primary Care Provider [phone] Encounter Details Date Type Department Care Team (Late st Contact Info) Description 04/30/2017 Abstract [facility] AT [address] [id number] Rafael Thakur MA Social History Tobacco Use Types Packs/Day Years Used Date Smoking Tobacco: Every Day Cigarettes Smokeless Tobacco: Never Alcohol Use Standard Drinks/Week Comments No 0 (1 standard drink = 0.6 oz pur e alcohol) Comments Unknown Sex and Gender Information Value Date Recorded Sex Assigned at Female 12/06/2019 3:36 PM SHIP KEEPER Legal Sex Female 5:20 PM CDT Gender Identity Female 12/06/2019 3:36 PM SHIP KEEPER Sexual Orientation Straight 12/06/2019 3: 36 PM SHIP KEEPER Occupation Industry Job Start Date Job End [...] on filedocumented in this encounter Care Teams Dental Amalgam Processor Relationship Specialty Start Date End Date Hebre Adorno MD PCP - General 03/11/17 06/14/17 Deisi Andrews MD [address] [place] [address] PCP - General FAMILY PRACTICE 06/15/17 10/14/19 Neva Holden MD . [facility] [address] [place] [address] PCP - [facility] FAMILY PRACTICE 10/15/19 12/05/19 Deisi Andrews MD [address] [place] [address] PCP - General FAMILY PRACTICE 12/06/19 02/13/20 Neva Holden MD [facility] [address] [place] [address] PCP - [facility] FAMILY PRACTICE 02/14/20 Asa Mcnamara MD [facility]. [facility] [address] [place] [address] [place] Grinding Machine Tender CARDIOVASCULAR DISEASE 05/15/16 documented as of this encounter
--- OUTSIDE RECORDS SUMMARY | 2025-05-23 08:11 | XMS_ITS | Encounter Summary ---
Author Organization [facility] Address [address] [place] [address] Care Team Providers Care Tightener Name Role Phone Asa Mcnamara MD Unavailable [phone] Deisi Andrews MD Primary Care Provider [phone] Neva Holden MD Primary Care Provider [phone] Deisi Andrews MD Primary Care Provider [phone] Neva Holden MD Primary Care Provider [phone] Encounter Details Date Type Department Care Team (Late st Contact Info) Description 11/25/2018 [facility] at [address] [address] Rafael Thakur MA Social History Tobacco Use Types Packs/Day Years Used Date Smoking Tobacco: Every Day Cigarettes Smokeless Tobacco: Never Comments:1 pk day Alcohol Use Standard Drinks/Week Comments No 0 (1 standard drink = 0.6 oz pur e alcohol) Comments Unknown Sex and Gender Information Value Date Recorded Sex Assigned at Female 12/06/2019 3:36 PM HOUSEHOLD PERSONAL ASSISTANT Legal Sex Female 5:20 PM CDT Gender Identity Female 12/06/2019 3:36 PM HOUSEHOLD PERSONAL ASSISTANT Sexual Orientation Straight 12/06/2019 3: 36 PM HOUSEHOLD PERSONAL ASSISTANT Occupation Industry Job Start Date Job [...] on filedocumented in this encounter Care Teams Tightener Relationship Specialty Start Date End Date Deisi Andrews MD [address] [place] [address] PCP - General FAMILY PRACTICE 06/15/17 10/14/19 Neva Holden MD [facility] [address] [place] [address] PCP - General FAMILY PRACTICE 10/15/19 12/05/19 Deisi Andrews MD [address] [place] [address] PCP - General FAMILY PRACTICE 12/06/19 02/13/20 Neva Holden MD [facility] [address] [place] [address] PCP - General FAMILY PRACTICE 02/14/20 Asa Mcnamara MD Three [facility]. [facility] [address] [place] [address] [place] Pharmaceutical Worker CARDIOVASCULAR DISEASE 05/15/16 documented as of this encounter
--- OUTSIDE RECORDS SUMMARY | 2025-05-23 08:11 | XMS_ITS | Clinical Summary ---
Author Organization [facility] Address [address], [facility] [address] [place] [address] Phone Care Team Providers Care Six Sigma Black Belt Engineer Name Role Phone Olu Nieto APRN, HORTICULTURE INSTRUCTOR Primary Care Provider Allergies Active Allergy Reactions [...] Cancer Screening (CCS) 1991 HPV/Cotest 1991 Cologuard 2006 Immunochemical Fecal Occult Blood 2006 Zoster Immunization (1 of 2) 2011 Pneumococcal Immunization (50+ years) (2 of 2 - PCV) 10/21/2017 10/21/2016 Respiratory Syncytial Virus (RSV) Immunization (Adult) (1 - Risk 60-74 years 1-dose series) 2021 Colonoscopy 01/12/2024 01/12/2019, 05/17/2013 Colorectal Cancer Screening 01/12/2024 SARS-COV-2 Immunization ( season) 2024 03/13/2021, 02/17/2021, 02/06/2021 Influenza Immunization (#1) 07/16/202508/15, 09/22/2019, 07/27/2018, Additional history exists Pneumococcal Immunization Combined Discontinued 10/21/2016 DTaP/Tdap/Td Immunization Discontinued 05/27/2021, TdaP Immunization Completed 05/27/2021, 01/31/2019 Hepatitis B Immunization Aged Out No longer eligible based on patient's age to complete this topic Human Papillomavirus (HPV) Immunization Aged Out No longer eligible based [...] Health Maintenance Insurance MEDICAID [employer] Care Teams Six Sigma Black Belt Engineer Relationship Specialty Start Date End Date Olu Nieto, FUSE MAKER, HORTICULTURE INSTRUCTOR [address] [place] [address] PCP - General Certified Nurse Practitioner 11/02/18
--- OUTSIDE RECORDS SUMMARY | 2025-05-23 08:11 | XMS_ITS | Encounter Summary ---
Author Organization [facility] Address [address] [place] [address] Care Team Providers Care Rod Puller And Coiler Name Role Phone Asa Mcnamara MD Unavailable [phone] Neva Holden MD Primary Care Provider Deisi Andrews MD Primary Care Provider [phone] Neva Holden MD Primary Care Provider [phone] Encounter Details Date Type Department Care Team (Late st Contact Info) Description 11/01/2019 [facility] at [address] [address] Rafael Thakur MA Social History Tobacco Use Types Packs/Day Years Used Date Smoking Tobacco: Every Day Cigarettes Smokeless Tobacco: Never Comments:1 pk day Alcohol Use Standard Drinks/Week Comments No 0 (1 standard drink = 0.6 oz pur e alcohol) Comments Unknown Sex and Gender Information Value Date Recorded Sex Assigned at Female 12/06/2019 3:36 PM TERRITORY SALES EXECUTIVE Legal Sex Female 5:20 PM CDT Gender Identity Female 12/06/2019 3:36 PM TERRITORY SALES EXECUTIVE Sexual Orientation Straight 12/06/2019 3: 36 PM TERRITORY SALES EXECUTIVE Occupation Industry Job Start Date Job End [...] on filedocumented in this encounter Care Teams Rod Puller And Coiler Relationship Specialty Start Date End Date Neva Holden MD [facility] [address] [place] [address] PCP - General FAMILY PRACTICE 10/15/19 12/05/19 Deisi Andrews MD [address] [place] [address] PCP - General FAMILY PRACTICE 12/06/19 02/13/20 Neva Holden MD [facility] [address] [place] [address] PCP - General FAMILY PRACTICE 02/14/20 Asa Mcnamara MD Three [facility]. [facility] [address] [place] [address] [place] Drama Professor CARDIOVASCULAR DISEASE 05/15/16 documented as of this encounter
== END 2025-05-23 08:02 | disposition home or self-care (01) ==
LOC: ANHIMG 08:08
PROVIDERS: PCP Nurse Practitioner Family; Visit Provider Nurse Practitioner
DX: Z13.820 Encounter for screening for osteoporosis (principal); M81.0 Age-related osteoporosis without current pathological fracture; M85.89 Other specified disorders of bone density and structure, multiple sites
CPT/HCPCS: 77080

== ENCOUNTER 2025-05-23 08:45 | Outpatient (CLI) | payer OTHER, SELFPAY ==
--- NOTE | ~2025-05-23 | CT_ITS ---
CT Scan of the Chest without Contrast: Clinical Indication: Lung cancer screening, nicotine dependence Technique: Contiguous sections were acquired throughout the chest without intravenous contrast. Dose reduction technique was used on this scan by utilizing automated exposure control and iterative recon struction technique. The dose-length product (DLP) was 195.38 mGy-cm. COMPARISON: 12/01/2024 Findings: There is no evidence of any significant mediastinal, hilar or axillary lymphadenopathy. Coronary thomas ry calcifications are present. There is no evidence of pleural or pericardial effusion. The lungs are clear, aside from calcified left upper lobe granulomas. Images through the upper abdomen reveal no abnormalities. Impression: Lung RADS 2: Benign appearance. 12 month follow-up screening CT advised. Reviewed, dictated and finalized at location . Impression: Lung RADS 2: Benign appearance. 12 month follow-up screening CT advised.
--- OUTSIDE RECORDS SUMMARY | 2025-05-23 08:50 | XMS_ITS | Clinical Summary ---
Author Organization [facility] Address [address] [place] [address] Care Team Providers Care Meteorology Faculty Member Name Role Phone Asa Mcnamara MD Unavailable [phone] Neva Holden MD Primary Care Provider [phone] Allergies Active Allergy Reactions Criticality Noted Date Comments Codeine Nausea and Vomiting 04/05/2019 Haloperidol Seizure 05/20/2016 Ketorolac Tromethamine Unknown 04/04/2013 Penicillins Hives,Redness High 04/04/2013 Dix-Ka-Izl-Propyl Ndzbrk-Uly-Jedecyjxl Seizure 05/20/2016 Risperidone And Related Hives,Other (see [...] tablet 1 0 Active vitamin D2, ergocalciferol, 56888 UNITS capsule Take 50,000 Units by mouth [...] (primary) hypertension PVD (peripheral vascular disease) Emphysema/COPD ([facility]) Diabetes ([facility]) Stroke ([facility]) Overview (05/20/2016): h/o Asthma ([facility]) Arthritis GERD (gastroesophageal reflux disease) [...] Assigned at Female 12/06/2019 3:36 PM SENIOR COUNSEL Legal Sex Female 5:20 PM CDT Gender Identity Female 12/06/2019 3:36 PM SENIOR COUNSEL Sexual Orientation Straight 12/06/2019 3: 36 PM SENIOR COUNSEL Occupation Industry Job Start Date Job End Date Not on file Not on file Not on file Not on file Last Filed Vital Signs Vital Sign Reading Time Taken Comments Blood Pressure 102/80 06/14/2020 1:49 PM CDT Pulse 98 06/14/2020 1:49 PM CDT Temperature 36.9 C (98.4 F) 12/07/2017 8:32 AM SENIOR COUNSEL Respiratory Rate 18 12/07/2017 8:32 AM SENIOR COUNSEL Oxygen Saturation 95% 02/21/2020 8:36 AM CDT [...] 05/02/2020 LIPID PANEL Routine 12/19/2018 7:52 AM SENIOR COUNSEL Mixed hyperlipidemia from Last 3 Months or Most Recently Relevant to Health Maintenance Results * HEMOGLOBIN, GLYCOSYLATED (05/02/2020) HGB A1C 7.6 % 05/02/2020 us Doc [facility] LABORATORY Final Result * (ABNORMAL) LIPID PANEL (12/19/2018 7:52 AM SENIOR COUNSEL) CHOLESTEROL 173 <200 MG/DL 12/19/2018 8:31 AM [facility] TRIGLYCERIDES 155(H) <150 MG/DL 12/19/2018 8:31 AM [facility] HDL 44 >40.0 MG/DL 12/19/2018 8:31 AM [facility] LDL (CALCULATED) 98 <100 MG/DL 12/19/2018 8:31 AM [facility] NON HDL CHOLESTEROL 129 <130 MG/DL 12/19/2018 8:31 AM [facility] CHOL/HDL RATIO 3.9 0.0 - 4.5 12/19/2018 8:31 AM [facility] VLDL CALCULATION 31 5 - 55 MG/DL 12/19/2018 8:31 AM [facility] LIPID INTERPRETATION 12/19/2018 8:31 AM [facility] Comment: NIH CONCENSUS REPORT RECOMMENDATIONS: ADULT CHILD LOW RISK: CHOLESTEROL <200 <170 TRIGLYCERIDE <150 --- HDL >=60 --- LDL <100 <110 BORDERLINE: CHOLESTEROL 200-239 170-199 TRIGLYCERIDE 150-199 --- HDL 40-59 --- LDL 100-159 110-129 HIGH RISK: CHOLESTEROL >=240 >=200 TRIGLYCERIDE >=200 --- HDL <40 --- LDL >=160 >=130 12/19/2018 7:52 AM SENIOR COUNSEL Asa Mcnamara MD LABORATORY Final Result [facility] [address] [place] [address], [place] [phone] from Last 3 Months or Most Recently Relevant to Health Maintenance Insurance [facility] Care Teams Meteorology Faculty Member Relationship Specialty Start Date End Date Neva Holden MD [facility] [address] [place] [address] PCP - General FAMILY PRACTICE 02/14/20 Asa Mcnamara MD [facility]. [facility] [address] [place] [address] [place] Department Of Sociology Chair CARDIOVASCULAR DISEASE 05/15/16
--- OUTSIDE RECORDS SUMMARY | 2025-05-23 08:50 | XMS_ITS | Encounter Summary ---
Author Organization [facility] Address [address] [place] [address] Care Team Providers Care Secondary Market Manager Name Role Phone Asa Mcnamara MD Unavailable [phone] Neva Holden MD Primary Care Provider [phone] Encounter Details Date Type Department Care Team (Late st Contact Info) Description 07/03/2020 [facility] at [address] [address] Rafael Thakur MA Social History Tobacco Use Types Packs/Day Years Used Date Smoking Tobacco: Every Day Cigarettes Smokeless Tobacco: Never Comments:1 pk day Alcohol Use Standard Drinks/Week Comments No 0 (1 standard drink = 0.6 oz pur e alcohol) Comments Unknown Sex and Gender Information Value Date Recorded Sex Assigned at Female 12/06/2019 3:36 PM ASBESTOS ABATEMENT WORKER Legal Sex Female 5:20 PM CDT Gender Identity Female 12/06/2019 3:36 PM ASBESTOS ABATEMENT WORKER Sexual Orientation Straight 12/06/2019 3: 36 PM ASBESTOS ABATEMENT WORKER Occupation Industry Job Start Date Job [...] on filedocumented in this encounter Care Teams Secondary Market Manager Relationship Specialty Start Date End Date Neva Holden MD [facility] [address] [place] [address] PCP - General FAMILY PRACTICE 02/14/20 Asa Mcnamara MD Three [facility]. [facility] [address] [place] [address] [place] Biological Photographer CARDIOVASCULAR DISEASE 05/15/16 documented as of this encounter
--- OUTSIDE RECORDS SUMMARY | 2025-05-23 08:51 | XMS_ITS | Encounter Summary ---
Author Organization [facility] Address [address] [place] [address] Care Team Providers Care Retail Custodial Associate Name Role Phone Asa Mcnamara MD Unavailable [phone] Deisi Andrews MD Primary Care Provider [phone] Neva Holden MD Primary Care Provider [phone] Deisi Andrews MD Primary Care Provider [phone] Neva Holden MD Primary Care Provider [phone] Encounter Details Date Type Department Care Team (Late st Contact Info) Description 11/25/2018 [facility] at [address] [address] Rafael Thakur MA Social History Tobacco Use Types Packs/Day Years Used Date Smoking Tobacco: Every Day Cigarettes Smokeless Tobacco: Never Comments:1 pk day Alcohol Use Standard Drinks/Week Comments No 0 (1 standard drink = 0.6 oz pur e alcohol) Comments Unknown Sex and Gender Information Value Date Recorded Sex Assigned at Female 12/06/2019 3:36 PM HOSPICE CARE CONSULTANT Legal Sex Female 5:20 PM CDT Gender Identity Female 12/06/2019 3:36 PM HOSPICE CARE CONSULTANT Sexual Orientation Straight 12/06/2019 3: 36 PM HOSPICE CARE CONSULTANT Occupation Industry Job Start Date Job [...] on filedocumented in this encounter Care Teams Retail Custodial Associate Relationship Specialty Start Date End Date Deisi Andrews MD [address] [place] [address] PCP - General FAMILY PRACTICE 06/15/17 10/14/19 Neva Holden MD [facility] [address] [place] [address] PCP - General FAMILY PRACTICE 10/15/19 12/05/19 Deisi Andrews MD [address] [place] [address] PCP - General FAMILY PRACTICE 12/06/19 02/13/20 Neva Holden MD [facility] [address] [place] [address] PCP - General FAMILY PRACTICE 02/14/20 Asa Mcnamara MD Three [facility]. [facility] [address] [place] [address] [place] Layout Artist CARDIOVASCULAR DISEASE 05/15/16 documented as of this encounter
--- OUTSIDE RECORDS SUMMARY | 2025-05-23 08:51 | XMS_ITS | Clinical Summary ---
Author Organization [facility] Address [address], [facility] [address] [place] [address] Phone Care Team Providers Care Wind Operations Supervisor Name Role Phone Olu Nieto APRN, INVENTORY CONTROL SUPERVISOR Primary Care Provider Allergies Active Allergy Reactions [...] Insurance MEDICAID [employer] Care Teams Wind Operations Supervisor Relationship Specialty Start Date End Date Olu Nieto, EMT, INVENTORY CONTROL SUPERVISOR [address] [place] [address] PCP - General Certified Nurse Practitioner 11/02/18
--- OUTSIDE RECORDS SUMMARY | 2025-05-23 08:51 | XMS_ITS | Encounter Summary ---
Author Organization [facility] Address [address] [place] [address] Care Team Providers Care Divorce Lawyer Name Role Phone Asa Mcnamara MD Unavailable [phone] Neva Holden MD Primary Care Provider [phone] Deisi Andrews MD Primary Care Provider [phone] Neva Holden MD Primary Care Provider [phone] Encounter Details Date Type Department Care Team (Late st Contact Info) Description 11/01/2019 [facility] at [address] [address] Rafael Thakur MA Social History Tobacco Use Types Packs/Day Years Used Date Smoking Tobacco: Every Day Cigarettes Smokeless Tobacco: Never Comments:1 pk day Alcohol Use Standard Drinks/Week Comments No 0 (1 standard drink = 0.6 oz pur e alcohol) Comments Unknown Sex and Gender Information Value Date Recorded Sex Assigned at Female 12/06/2019 3:36 PM TRIM CREW SUPERVISOR Legal Sex Female 5:20 PM CDT Gender Identity Female 12/06/2019 3:36 PM TRIM CREW SUPERVISOR Sexual Orientation Straight 12/06/2019 3: 36 PM TRIM CREW SUPERVISOR Occupation Industry Job Start Date [...] on filedocumented in this encounter Care Teams Divorce Lawyer Relationship Specialty Start Date End Date Neva Holden MD [facility] [address] [place] [address] PCP - General FAMILY PRACTICE 10/15/19 12/05/19 Deisi Andrews MD [address] [place] [address] PCP - General FAMILY PRACTICE 12/06/19 02/13/20 Neva Holden MD [facility] [address] [place] [address] PCP - General FAMILY PRACTICE 02/14/20 Asa Mcnamara MD Three [facility]. [facility] [address] [place] [address] [place] Mixer Driver CARDIOVASCULAR DISEASE 05/15/16 documented as of this encounter
--- OUTSIDE RECORDS SUMMARY | 2025-05-23 08:51 | XMS_ITS | Encounter Summary ---
Author Organization [facility] Address [address] [place] [address] Care Team Providers Care Fuel Assembler Name Role Phone SullivanDane gonzalez DO Primary Care Provider [phone] Asa Mcnamara MD Unavailable [phone] Deisi Andrews MD Primary Care Provider [phone] Heber Adorno MD Primary Care Provider Unavailable Deisi Andrews MD Primary Care Provider [phone] Neva Holden MD Primary Care Provider [phone] Deisi Andrews MD Primary Care Provider [phone] Neva Holden MD Primary Care Provider [phone] Encounter Details Date Type Department Care Team (Late st Contact Info) Description 05/21/2016 Abstract [facility] AT [address] [address] Rafael Thakur MA Social History Tobacco Use Types Packs/Day Years Used Date Smoking Tobacco: Every Day Cigarettes Smokeless Tobacco: Never Alcohol Use Standard Drinks/Week Comments No 0 (1 standard drink = 0.6 oz pur e alcohol) Comments Unknown Sex and Gender Information Value Date Recorded Sex Assigned at Female 12/06/2019 3:36 PM MANAGER APPOINTMENT Legal Sex Female 5:20 PM CDT Gender Identity Female 12/06/2019 3:36 PM MANAGER APPOINTMENT Sexual Orientation Straight 12/06/2019 3: 36 PM MANAGER APPOINTMENT Occupation Industry Job Start Date Job End [...] on filedocumented in this encounter Care Teams Fuel Assembler Relationship Specialty Start Date End Date Dane Sullivan DO PCP - General FAMILY PRACTICE 05/15/16 02/11/17 Deisi Andrews MD [address] [place] [address] PCP - General FAMILY PRACTICE 02/13/17 03/10/17 Heber Adorno MD PCP - General 03/11/17 06/14/17 Deisi Andrews MD [address] [place] [address] PCP - General FAMILY PRACTICE 06/15/17 10/14/19 Neva Holden MD [facility] [address] PCP - General FAMILY PRACTICE 10/15/19 12/05/19 Deisi Andrews MD [address] [place] [address] PCP - General FAMILY PRACTICE 12/06/19 02/13/20 [facility] [address] [place] [address] PCP - General FAMILY PRACTICE 02/14/20 Asa Mcnamara MD [facility] [address] [place] [address] Stephen Documentation Nurse CARDIOVASCULAR DISEASE 05/15/16 documented as of this encounter
--- OUTSIDE RECORDS SUMMARY | 2025-05-23 08:51 | XMS_ITS | Encounter Summary ---
Author Organization [facility] Address [address] [place] [address] Care Team Providers Care Contour Band Saw Operator Vertical Name Role Phone Asa Mcnamara MD Unavailable [phone] Heber Adorno MD Primary Care Provider Unavailable Deisi Andrews MD Primary Care Provider [phone] Neva Holden MD Primary Care Provider [phone] Deisi Andrews MD Primary Care Provider [phone] Neva Holden MD Primary Care Provider [phone] Encounter Details Date Type Department Care Team (Late st Contact Info) Description 04/30/2017 Abstract [facility] AT [address] [id number] Rafael Thakur MA Social History Tobacco Use Types Packs/Day Years Used Date Smoking Tobacco: Every Day Cigarettes Smokeless Tobacco: Never Alcohol Use Standard Drinks/Week Comments No 0 (1 standard drink = 0.6 oz pur e alcohol) Comments Unknown Sex and Gender Information Value Date Recorded Sex Assigned at Female 12/06/2019 3:36 PM HOME CARE PHYSICAL THERAPIST Legal Sex Female 5:20 PM CDT Gender Identity Female 12/06/2019 3:36 PM HOME CARE PHYSICAL THERAPIST Sexual Orientation Straight 12/06/2019 3: 36 PM HOME CARE PHYSICAL THERAPIST Occupation Industry Job Start Date [...] on filedocumented in this encounter Care Teams Contour Band Saw Operator Vertical Relationship Specialty Start Date End Date Heber Adorno MD PCP - General 03/11/17 06/14/17 Deisi Andrews MD [address] [place] [address] PCP - General FAMILY PRACTICE 06/15/17 10/14/19 Neva Holden MD . [facility] [address] [place] [address] PCP - [facility] FAMILY PRACTICE 10/15/19 12/05/19 Deisi Andrews MD [address] [place] [address] PCP - General FAMILY PRACTICE 12/06/19 02/13/20 Neva Holden MD [facility] [place] [facility] [address] [place] [address] PCP - [facility] FAMILY PRACTICE 02/14/20 Asa Mcnamara MD [facility]. [facility] [address] [place] [address] [place] Framing Mill Operator Helper CARDIOVASCULAR DISEASE 05/15/16 documented as of this encounter
--- OUTSIDE RECORDS SUMMARY | 2025-05-23 08:51 | XMS_ITS | Clinical Summary ---
Author Organization [facility] Address [address] [place] [address] Care Team Providers Care Tax Professional Name Role Phone Provider, Abstract Primary Care [...] tablet Take 30 mg by mouth daily product craftsman. Active losartan (COZAAR) 100 mg tablet Take [...] 1:59 PM CDT Height 160 cm (5' 3) 05/04/2019 1:59 PM CDT Body Mass Index 35.52 05/04/2019 1:59 PM CDT Plan of Treatment Health Maintenance Due Date Last Done Comments DIABETES ANNUAL FOOT EXAM 1979 DIABETES MICROALBUMIN ANNUAL SCREEN 1979 LDL CHOLESTEROL ANNUAL 1979 HPV/Cotest (21-29) 1982 CERVICAL CANCER SCREENING 1991 HPV/Cotest (30-65) 1991 PAP SMEAR 1991 BREAST CANCER SCREENING 2001 COLORECTAL SCREENING 2006 Colorectal Cancer Screening 2006 FIT-DNA Q 3 years 2006 FIT/FOBT Q 1 year 2006 Flex Sig/CT Colonography Q 5 years 2006 ZOSTER VACCINE (1 of 2) 2011 RSV VACCINE (60+ or ) (1 - Risk 60-74 years 1-dose series) 2021 DIABETES ANNUAL RETINAL EXAM 12/02/2022 12/02/2021, 06/12/2020 DIABETES HBA1C Q 6 MONTHS 05/22/2024 11/22/2023, COVID-19 Vaccine (3 - 2023-2 5 season) 2024 03/13/2021, 02/17/2021 INFLUENZA VACCINE (#1) 2025 , 08/28/2020, 09/22/2019, Additional history exists DTAP/TDAP/TD VACCINES (3 - T d or Tdap) 05/27/2031 05/27/2021, 01/31/2019 Insurance , [address] [place] [address] [employer] MEDICAID Care Teams Tax Professional Relationship Specialty Start Date End Date Provider, Abstract NO ADDRESS ON FILE PCP - General 03/24/19
== END 2025-05-23 08:46 | disposition home or self-care (01) ==
PROVIDERS: PCP Nurse Practitioner Family; Visit Provider Nurse Practitioner Family
DX: Z12.2 Encounter for screening for malignant neoplasm of respiratory organs (principal); Z87.891 Personal history of nicotine dependence
CPT/HCPCS: 71271

== ENCOUNTER 2025-06-08 05:35 | Inpatient (IN) | payer OTHER, SELFPAY ==
[2025-06-08] VITALS (28 sets, daily range): BP systolic 71–129; BP diastolic 38–80; PULSE 71–102; RESP 14–23; TEMP 36.4–39.5; O2SAT 96–99; BMI 38.5
--- NOTE | ~2025-06-08 | XR_ITS ---
EXAMINATION: XR chest 2V 06/08/2025 06:43 INDICATION: Fever, shortness of breath and chills PROCEDURE: 2 view chest COMPARISON: Comparison to multiple prior studies sequentially, with oldest reviewed study dated 10/16. FINDINGS: The lungs are clear. The cardiomediastinal silhouette is within normal limits. There are no pleural effusions. There is no pneumothorax suspected. There is calcified granuloma of the left mid thorax. IMPRESSION: 1: NO ACUTE CARDIOPULMONARY DISEASE. Reviewed, dictated and finalized at location A.
--- NOTE | ~2025-06-08 | US_ITS ---
EXAMINATION: US venous doppler [facility] DATE: 06/10/2025 16:35 INDICATION: RIGHT LEG PAIN . TECHNIQUE: Grayscale images without and with compression and Doppler images of the bilateral lower ex tremity veins were obtained. COMPARISON: None FINDINGS: The right common femoral vein, profunda (deep) femoral vein, femoral vein, popliteal vein, peroneal v ein, posterior tibial veins, and greater saphenous vein are patent. The left common femoral vein, profunda (deep) femoral vein, femoral vein, popliteal vein, peroneal v ein, posterior tibial veins, and greater saphenous vein are patent. IMPRESSION: Patent bilateral lower extremity veins. No evidence of deep venous thrombosis. Reviewed, dictated and finalized at location K.
--- NOTE | ~2025-06-08 | CT_ITS ---
EXAMINATION: CTA chest PE abdomen pel DATE: 06/08/2025 8:02 CDT INDICATION: Shortness of breath. Myalgias. Fever. Diarrhea. TECHNIQUE: Computed tomographic angiography (CTA) of the chest, abdomen, and pelvis was performed wit hout and with 100 mL Omnipaque-350 intravenous contrast. The dose-length product was 1789.54 mGy-cm. Maximum intensity projection 3D-reconstructions of the aorta and other arteries were constructed by todd herrmann technologist on a separate workstation. COMPARISON: None. FINDINGS: CHEST CTA: Study technically adequate without evidence for pulmonary embolism. No thoracic lymphadenopathy. Hear t size normal. No significant pleural or pericardial effusion. There are calcified granulomas left mi d thorax. No endobronchial lesions. No pneumothorax. There is lingular atelectasis/scarring. No focal pneumonia. No evidence for aortic aneurysm or dissection. ABDOMEN AND PELVIS CTA: Fatty infiltration of the liver. Status post cholecystectomy. Calcified granulomas of the spleen. The re is an accessory splenule. Pancreas, and right kidney are unremarkable. There is mild left perineph leonila stranding/fluid with mild hydronephrosis. No obstructing stone identified. Consider ascending uri nary tract infection. There is atherosclerosis of the aorta. The celiac axis and SMA are widely paten t. The renal arteries are widely patent. There is a stent in the iliac arteries. No evidence for aort ic aneurysm. Colonic diverticulosis without evidence for diverticulitis. Mild thoracic spondylosis. IMPRESSION: 1. Moderate left perinephric fluid/stranding with mild hydronephrosis. There is mild urothelial thick ening of the renal pelvis and proximal ureter. Consider ascending urinary tract infection/pyelonephri tis in the appropriate clinical setting. 2: No acute cardiopulmonary disease. Reviewed, dictated and finalized at location A. IMPRESSION: 1. Moderate left perinephric fluid/stranding with mild hydronephrosis. There is mild urothelial thickening of the renal pelvis and proximal ureter. Consider a scending urinary tract infection/pyelonephritis in the appropriate clinical set ting. 2: No acute cardiopulmonary disease.
--- NOTE | ~2025-06-08 | XR_ITS ---
XR abdomen/kub 1V 06/11/2025 16:31 Indication: Abdominal pain. Constipation. Procedure: 2 views abdomen Comparison: 12/04/2024 Findings: Bowel gas pattern is nonobstructive. Moderate colonic fecal loading. There are cholecystect jaylen clips. There are bilateral iliac artery stents. No abnormal calcifications. Impression: 1: No acute abdominal abnormality. Reviewed, dictated and finalized at location B. Impression: 1: No acute abdominal abnormality.
--- NOTE | 2025-06-08 06:02 | ED.SOB ---
HPI - SOB/Dyspnea General Chief Complaint: Shortness of Breath/Dyspnea <Angela Ramos MD - Last Filed: 06/08/25 07:53> Stated Complaint: sob <Angela Ramos MD - Last Filed: 06/08/25 07:53> Time Seen by Provider: 06/08/25 05:56 <Angela Ramos MD - Last Filed: 06/08/25 07:53> Source: patient and RN notes reviewed <Angela Ramos MD - Last Filed: 06/08/25 07:53> Mode of arrival: EMS <Angela Ramos MD - Last Filed: 06/08/25 07:53> Limitations: no limitations <Angela Ramos MD - Last Filed: 06/08/25 07:53> History of Present Illness HPI Narrative: Patient with past history of COPD and asthma presents to the emergency department with report of shortness of breath, fevers, chills, myalgias. She does not chronically have a cough but she has developed 1 although it is not productive. She states her symptoms started this morning. Denies any chest pain. Does not wear oxygen at baseline. She has required BiPAP before for her underlying respiratory issues but not intubation. She also started having diarrhea this morning. She lives by herself. No known sick contacts. <Angela Ramos MD - Last Filed: 06/08/25 07:53> Related Data Home Medications: Home Medications ?Medication ?Instructions ?Recorded ?Confirmed ?Last Taken ?Type clopidogrel 75 mg tablet 75 mg PO DAILY 05/20/21 05/24/25 11/30/24 History trazodone 50 mg tablet 50 mg PO HS PRN Insomnia 08/07/23 05/24/25 11/30/24 History lorazepam 0.5 mg tablet 0.5 mg PO TID 08/26/23 05/24/25 11/30/24 History metformin 500 mg tablet 500 mg PO BID 08/26/23 05/24/25 11/30/24 History budesonide-formoterol HFA 160 See Rx Instructions .Route .COMPLEX 10/25/23 05/24/25 11/30/24 History mcg-4.5 mcg/actuation aerosol inhaler (Symbicort) ergocalciferol (vitamin D2) 1,250 50,000 unit PO WEEKLY 10/25/23 05/24/25 11/27/24 History mcg (50,000 unit) capsule cromolyn 4 % eye drops 1 drp EACH EYE DAILY 03/02/24 05/24/25 11/30/24 History fluticasone propionate 50 1 spray intranasal DAILY 03/02/24 05/24/25 11/30/24 History mcg/actuation nasal spray,suspension albuterol sulfate 2.5 mg/3 mL 2.5 mg inhalation Q6H PRN 11/05/24 05/24/25 11/30/24 History (0.083 %) solution for nebulization shortness of breath or wheezing fenofibrate 120 mg tablet 120 mg PO DAILY 11/05/24 05/24/25 11/30/24 History sotalol 80 mg tablet 120 mg PO Q12HR 12/01/24 05/24/25 11/30/24 History blood-glucose meter (OneTouch 02/14/25 05/24/25 Unknown History Ultra2 Meter) clonazepam 0.5 mg tablet mg 02/14/25 05/24/25 Unknown History fluoxetine 20 mg capsule mg 02/14/25 05/24/25 Unknown History gabapentin 300 mg capsule mg 02/14/25 05/24/25 Unknown History lancets 28 gauge (Safety Lancets) 02/14/25 05/24/25 Unknown History lancets 30 gauge 02/14/25 05/24/25 Unknown History losartan 100 mg tablet mg 02/14/25 05/24/25 Unknown History bupropion HCl 150 mg tablet,12 hr 150 mg PO DAILY 04/19/25 05/24/25 Unknown History sustained-release (Wellbutrin SR) <Angela Ramos MD - Last Filed: 06/08/25 07:53> Allergies/Adverse Reactions: Allergies Allergy/AdvReac Type Severity Reaction Status Date / Time haloperidol Allergy Unknown Other Verified 06/08/25 09:09 risperidone Allergy Unknown MY MOUTH Verified 06/08/25 09:09 TIGHTENS UP-TD simvastatin Allergy Unknown Other Verified 06/08/25 09:09 [id number] Reductase Allergy Other Verified 06/08/25 09:09 Inhibitor codeine AdvReac Unknown NAUSEA AND Verified 06/08/25 09:09 VOMITING triazolam AdvReac Unknown N/V Verified 06/08/25 09:09 Wasp Allergy Unknown WASP Uncoded 06/08/25 09:09 STING- CLOSES MY THROAT <Angela Ramos MD - Last Filed: 06/08/25 07:53> [facility] Past Medical History Medical History: Medical History Asthma Abdominal pain Pneumonia Colon polyps Hemorrhoid Paroxysmal atrial fibrillation History of diverticulitis Osteoarthritis Tobacco dependence Bladder cancer Hypertension Peripheral arterial disease Type 2 diabetes mellitus Gastroesophageal reflux disease Obstructive sleep apnea Cerebrovascular accident Chronic obstructive pulmonary disease Bipolar disorder Coronary artery disease Anxiety Hyperlipidemia Macular degeneration History of gastroesophageal reflux (GERD) History of diabetes mellitus History of bladder cancer <Angela Ramos MD - Last Filed: 06/08/25 07:53> Surgical History Surgical History: Surgical History History of transurethral resection of bladder tumor (TURBT) History of vascular surgery Bilateral iliac stent. History of section History of cardiac catheterization History of left-sided carotid endarterectomy History of carpal tunnel release History of colonoscopy History of esophagogastroduodenoscopy (EGD) History of cholecystectomy <Angela Ramos MD - Last Filed: 06/08/25 07:53> Family History Family History: Family History Sibling Diabetes mellitus Family history of malignant neoplasm Heart disease <Angela Ramos MD - Last Filed: 06/08/25 07:53> Social History Social History: Social History Smoking packs per day: 2 Smoking cigarettes per day: 40.0 Years smoked: 30 Smoking pack-years: 60.00 Smoking status: Former smoker Second hand tobacco smoke exposure: No Additional smoking assessment comments: pt. was smoking 3 packs a day and has cut down to half a pack daily Alcohol intake: former Substance use: current Substance use type: marijuana Last use: 11/29/23 Do You Feel Safe in your Home?: Yes Lack of Transportation: No Lack of Food: Never True Current Housing: I Have Housing Concerned About Future Housing: No Difficulty Paying Gas/Electric Bills: No Difficulty Paying for Meds: No Currently Unemployed: No Education: High School Diploma/GED Difficulty w/ Childcare or Family Care: No Living arrangements: alone Spiritual care concerns: No <Angela Ramos MD - Last Filed: 06/08/25 07:53> Exam Narrative: GENERAL: well-nourished, and in no acute distress. HEAD: Normocephalic, atraumatic. EYES: Non injected, non icteric ENT: Nares clear, no rhinorrhea or epistaxis. Gross auditory acuity intact. NECK: Supple. No meningismus. CHEST: Tachypneic but Speaking in full sentences. Coarse bilateral breath sounds with some wheezes appreciated. HEART: Regular rate and rhythm. . ABDOMEN: Soft, nondistended. EXTREMITIES: Normal range of motion. SKIN: Warm, dry, no rash. NEURO: No focal deficits. Alert and oriented. Answering questions. Following commands. Normal speech without aphasia or dysarthria. PSYCH: Normal mood and affect. <Angela Ramos MD - Last Filed: 06/08/25 07:53> Course Course Emergency Course: 64-year-old female present to the emergency department for evaluation for fever increased generalized weakness. Patient reports she did have a cystoscopy last week and has had increased burning with urination increased generalized weakness. Patient's fever was treated in the emergency department. Patient has no elevated leukocytosis and hemoglobin of 13.7. D-dimer was elevated 0.59 and CTA showed no evidence of pulmonary embolism. CT did show evidence of a pyelonephritis. Does have a creatinine of 1.28 which is elevated compared to her baseline. Patient was treated with IV fluids. UA was significant for urinary tract infection and patient was treated with 2 g of IV Rocephin. Patient was negative for influenza RSV and for COVID. Case was discussed with hospitalist patient was accepted for admission. Patient was updated results of her workup and she was comfortable the plan for admission. <Reid Maynard MD - Last Filed: 06/08/25 12:58> Vital Signs Vital signs: Vital Signs Temperature 103.1 F H 06/08/25 05:33 Pulse Rate 93 06/08/25 05:33 Respiratory Rate 22 H 06/08/25 05:33 Pulse Oximetry 99 06/08/25 05:33 Oxygen Delivery Room Air 06/08/25 05:33 Temperature 98.6 F 06/08/25 12:32 Pulse Rate 81 06/08/25 12:32 Respiratory Rate 18 06/08/25 12:32 Blood Pressure 95/54 L 06/08/25 12:32 Pulse Oximetry 97 06/08/25 12:32 Oxygen Delivery Room Air 06/08/25 05:33 <Angela Ramos MD - Last Filed: 06/08/25 07:53> Vital Signs Temperature 103.1 F H 06/08/25 05:33 Pulse Rate 93 06/08/25 05:33 Respiratory Rate 22 H 06/08/25 05:33 Pulse Oximetry 99 06/08/25 05:33 Oxygen Delivery Room Air 06/08/25 05:33 Temperature 98.6 F 06/08/25 12:32 Pulse Rate 81 06/08/25 12:32 Respiratory Rate 18 06/08/25 12:32 Blood Pressure 95/54 L 06/08/25 12:32 Pulse Oximetry 97 06/08/25 12:32 Oxygen Delivery Room Air 06/08/25 05:33 <Reid Maynard MD - Last Filed: 06/08/25 12:58> MDM - SOB/Dyspnea MDM Narrative Medical decision making narrative: Patient presents with report of shortness of breath, fever, chills and myalgias as well as diarrhea. History of COPD in his own and has required BiPAP previously but not intubation. In the emergency department she is afebrile with mild tachypnea. BP not initially documented but 102/56 (MAP 69). CBC without marked abnormalities only mild misses on the differential. Patient has an acute kidney injury. 1 L IV fluids ordered. BNP mildly elevated but not to a degree to suggest acute heart failure based on the reference range of the assay for patient's age. Patient signed out to oncoming ED physician pending the rest of her work up and reassessment (CTA chest/abd/pelvis and UA). Given azithromycin for change in cough which is not baseline. <Angela Ramos MD - Last Filed: 06/08/25 07:53> Differential Diagnosis Differential diagnosis: Likely acute exacerbation of chronic obstructive airways disease, congestive heart failure, community acquired pneumonia, asthma with exacerbation, pulmonary embolism and other (Acute viral syndrome, urinary tract infection, abscess) <Angela Ramos MD - Last Filed: 06/08/25 07:53> Lab Data Result diagrams: 06/08/25 06:21 06/08/25 06:21 <Angela Ramos MD - Last Filed: 06/08/25 07:53> Labs: Lab Results 06/08/25 06/08/25 Range/Units 06:21 08:19 WBC 7.9 (4.5-10.0) K/mm3 RBC 4.67 (4.2-5.4) M/mm3 Hgb 13.7 (12.0-15.0) g/dL Hct 42.4 (37.0-47.0) % MCV 90.8 (80-100) fl MCH 29.3 (26-34) pg MCHC 32.3 (32-36) g/dl RDW 13.1 (11.5-14.5) % Plt Count 169 (150-375) k/mm3 MPV 9.7 (7.4-10.4) fl Immature Gran % (Auto) 0.5 (0-0.5) % Neut % (Auto) 86.1 H (45.5-73.1) % Lymph % (Auto) 7.4 L (18.3-44.2) % [place] % (Auto) 3.8 (2.6-8.5) % Eos % (Auto) 1.8 (0-4.4) % Baso % (Auto) 0.4 (0.2-1.2) % Lymph # (Auto) 0.59 L (0.9-3.2) K/mm3 [place] # (Auto) 0.3 (0.1-0.6) K/mm3 Eos # (Auto) 0.1 (0-0.3) K/mm3 Baso # (Auto) 0.0 (0.0-0.1) K/mm3 Abs Immat Gran (auto) 0.04 H (0.00-0.031) K/mm3 Absolute Neuts (auto) 6.8 H (1.3-6.7) K/mm3 Absolute Nucleated RBC 0.000 (0.0-0.012) K/mm3 Nucleated RBC % 0.0 (0.0-0.2) % D-Dimer 0.59 H (<0.48) ug/mL Sodium 137 (137-145) mmol/L Potassium 4.5 (3.4-5.0) mmol/L Chloride 106 (98-107) mmol/L Carbon Dioxide 23 (22-30) mmol/L Anion Gap 8 (4-12) mmol/L BUN 22 H (7-17) mg/dL Creatinine 1.28 H (0.7-1.0) mg/dL Estim Creat Clear Calc Not Reportable Estimated GFR 42 L (59 - ) Glucose 115 H (65-110) mg/dL Lactic Acid 2.0 (0.7-2.0) mmol/L Calcium 9.1 (8.4-10.2) mg/dL Magnesium 1.6 (1.6-2.3) mg/dL Total Bilirubin 0.5 (0.2-1.3) mg/dL AST 21 (14-36) U/L ALT 12 (6-35) U/L Alkaline Phosphatase 67 (38-126) U/L NT-Pro-B Natriuret Pep 444 H (19.9-100) pg/mL Total Protein 7.5 (6.3-8.2) g/dL Albumin 4.1 (3.5-5.1) g/dL Urine Color Yellow (Yellow) Urine Appearance Clear (Clear) Urine pH 5.5 (5.0-9.0) Ur Specific [place] > 1.045 H (1.001-1.035) Urine Protein 3+ H (Negative) mg/dL Urine Glucose (UA) Negative (Negative) mg/dL Urine Ketones Negative (Negative) mg/dL Ur Blood (Man) Trace (Negative) Urine Nitrate Negative (Negative) Urine Bilirubin Negative (Negative) Urine Urobilinogen 0.2 (<2.0) mg/dL Add Ur Microanalysis Reviewed Leukocyte Esterase Rfl 2+ H (Negative) NORBERTO/UL Urine RBC 3-5 H (0-2) /hpf Urine WBC >100 H (0-3) /hpf Urine WBC Clumps Present H (None) /HPF Ur Squamous Epith Cells None seen (Few) /hpf Urine Bacteria None seen /hpf Urine Casts 3-5 Influenza A (RT-PCR) Negative (Negative) Influenza B (RT-PCR) Negative (Negative) RSV (RT-PCR) Negative (Negative) SARS-CoV-2 RNA (RT-PCR) Negative (Negative) <Angela Ramos MD - Last Filed: 06/08/25 07:53> Lab Results 06/08/25 06/08/25 Range/Units 06:21 08:19 WBC 7.9 (4.5-10.0) K/mm3 RBC 4.67 (4.2-5.4) M/mm3 Hgb 13.7 (12.0-15.0) g/dL Hct 42.4 (37.0-47.0) % MCV 90.8 (80-100) fl MCH 29.3 (26-34) pg MCHC 32.3 (32-36) g/dl RDW 13.1 (11.5-14.5) % Plt Count 169 (150-375) k/mm3 MPV 9.7 (7.4-10.4) fl Immature Gran % (Auto) 0.5 (0-0.5) % Neut % (Auto) 86.1 H (45.5-73.1) % Lymph % (Auto) 7.4 L (18.3-44.2) % [place] % (Auto) 3.8 (2.6-8.5) % Eos % (Auto) 1.8 (0-4.4) % Baso % (Auto) 0.4 (0.2-1.2) % Lymph # (Auto) 0.59 L (0.9-3.2) K/mm3 [place] # (Auto) 0.3 (0.1-0.6) K/mm3 Eos # (Auto) 0.1 (0-0.3) K/mm3 Baso # (Auto) 0.0 (0.0-0.1) K/mm3 Abs Immat Gran (auto) 0.04 H (0.00-0.031) K/mm3 Absolute Neuts (auto) 6.8 H (1.3-6.7) K/mm3 Absolute Nucleated RBC 0.000 (0.0-0.012) K/mm3 Nucleated RBC % 0.0 (0.0-0.2) % D-Dimer 0.59 H (<0.48) ug/mL Sodium 137 (137-145) mmol/L Potassium 4.5 (3.4-5.0) mmol/L Chloride 106 (98-107) mmol/L Carbon Dioxide 23 (22-30) mmol/L Anion Gap 8 (4-12) mmol/L BUN 22 H (7-17) mg/dL Creatinine 1.28 H (0.7-1.0) mg/dL Estim Creat Clear Calc Not Reportable Estimated GFR 42 L (59 - ) Glucose 115 H (65-110) mg/dL Lactic Acid 2.0 (0.7-2.0) mmol/L Calcium 9.1 (8.4-10.2) mg/dL Magnesium 1.6 (1.6-2.3) mg/dL Total Bilirubin 0.5 (0.2-1.3) mg/dL AST 21 (14-36) U/L ALT 12 (6-35) U/L Alkaline Phosphatase 67 (38-126) U/L NT-Pro-B Natriuret Pep 444 H (19.9-100) pg/mL Total Protein 7.5 (6.3-8.2) g/dL Albumin 4.1 (3.5-5.1) g/dL Urine Color Yellow (Yellow) Urine Appearance Clear (Clear) Urine pH 5.5 (5.0-9.0) Ur Specific [place] > 1.045 H (1.001-1.035) Urine Protein 3+ H (Negative) mg/dL Urine Glucose (UA) Negative (Negative) mg/dL Urine Ketones Negative (Negative) mg/dL Ur Blood (Man) Trace (Negative) Urine Nitrate Negative (Negative) Urine Bilirubin Negative (Negative) Urine Urobilinogen 0.2 (<2.0) mg/dL Add Ur Microanalysis Reviewed Leukocyte Esterase Rfl 2+ H (Negative) NORBERTO/UL Urine RBC 3-5 H (0-2) /hpf Urine WBC >100 H (0-3) /hpf Urine WBC Clumps Present H (None) /HPF Ur Squamous Epith Cells None seen (Few) /hpf Urine Bacteria None seen /hpf Urine Casts 3-5 Influenza A (RT-PCR) Negative (Negative) Influenza B (RT-PCR) Negative (Negative) RSV (RT-PCR) Negative (Negative) SARS-CoV-2 RNA (RT-PCR) Negative (Negative) <Reid R. Caesar, MD - Last Filed: 06/08/25 12:58> Imaging Data Radiologist's impression: Impressions Chest X-Ray 06/08/25 06:51 IMPRESSION: 1: NO ACUTE CARDIOPULMONARY DISEASE. <Angela Ramos MD - Last Filed: 06/08/25 07:53> ECG Data EKG #1: Attestation: I personally reviewed and interpreted this ECG as follows: <Angela Ramos MD - Last Filed: 06/08/25 07:53> ECG completion date: 06/08/25 <Angela Ramos MD - Last Filed: 06/08/25 07:53> ECG completion time: 06:49 <Angela Ramos MD - Last Filed: 06/08/25 07:53> Interpretation: Normal sinus rhythm at a rate of 95 beats per minute. ID interval 148. QRS 90. QT/QTC 337/389. R-wave progression across the precordial leads. No T-wave inversions. <Angela Ramos MD - Last Filed: 06/08/25 07:53> Discharge Plan Discharge Clinical Impression: JAYLEN (acute kidney injury), COPD exacerbation, Fever, Shortness of breath, Myalgia, Acute diarrhea, Pyelonephritis <Angela Ramos MD - Last Filed: 06/08/25 07:53> Patient Disposition: Still a Patient <Angela Ramos MD - Last Filed: 06/08/25 07:53> Condition: Stable <Angela Ramos MD - Last Filed: 06/08/25 07:53>
--- NOTE | 2025-06-08 06:03 | ECG_ITS ---
Test Date: 2025-06-08 06:49:41 Measurements Intervals Bee Rate: 95 P: 65 [place]: 148 QRS: 25 QRSD: 90 T: 53 QT: 337 QTc: 424 Interpretive Statements SINUS RHYTHM NONSPECIFIC ST & T-WAVE ABNORMALITY Compared to ECG 12/05/2024 00:07:07 NO SIGNIFICANT CHANGES Electronically Signed On 06-09-2025 18:29:54 CDT by Martin Rubio M.D.
--- OUTSIDE RECORDS SUMMARY | 2025-06-08 06:09 | XMS_ITS | Encounter Summary ---
Author Organization [facility] Address [address] [place] [address] Care Team Providers Care Laborer Filter [employer] Name Role Phone Asa Mcnamara MD Unavailable [phone] Deisi Andrews MD Primary Care Provider [phone] Neva Holden MD Primary Care Provider [phone] Deisi Andrews MD Primary Care Provider [phone] Neva Holden MD Primary Care Provider [phone] Encounter Details Date Type Department Care Team (Late st Contact Info) Description 11/25/2018 [facility] at [address] [address] Rafael Thakur MA Social History [...] 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 Industry Job Start Date Job End [...] on filedocumented in this encounter Care Teams Laborer Filter Plant Relationship Specialty Start Date End Date Deisi Andrews MD [address] [place] [address] PCP - General FAMILY PRACTICE 06/15/17 10/14/19 Neva Holden MD [facility] [address] [place] [id number] PCP - General FAMILY PRACTICE 10/15/19 12/05/19 Deisi Andrews MD [address] [place] [address] PCP - General FAMILY PRACTICE 12/06/19 02/13/20 Neva Holden MD [facility] [address] [place] [id number] PCP - General FAMILY PRACTICE 02/14/20 Asa Mcnamara MD [facility]. [facility] [address] [place] [address] [place] [employer] CARDIOVASCULAR DISEASE 05/15/16 documented as of this encounter
--- OUTSIDE RECORDS SUMMARY | 2025-06-08 06:09 | XMS_ITS | Encounter Summary ---
Author Organization [facility] Address [address] [place] [address] Care Team Providers Care Monitoring Analyst Name Role Phone Asa Mcnamara MD Unavailable [phone] Neva Holden MD Primary Care Provider [phone] Encounter Details Date Type Department Care Team (Late st Contact Info) Description 07/03/2020 Abstract [facility] at [address] [address] Rafael Thakur MA Social History Tobacco Use Types Packs/Day Years Used Date Smoking Tobacco: Every Day Cigarettes Smokeless Tobacco: Never Comments:1 pk day Alcohol Use Standard Drinks/Week Comments No 0 (1 standard drink = 0.6 oz pur e alcohol) Comments Unknown Sex and Gender Information Value Date Recorded Sex Assigned at Female 12/06/2019 3:36 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 [facility] [address] [place] [address] [place] [employer] CARDIOVASCULAR DISEASE 05/15/16 documented as of this encounter
--- OUTSIDE RECORDS SUMMARY | 2025-06-08 06:09 | XMS_ITS | Encounter Summary ---
Author Organization [facility] Address [address] [place] [address] Care Team Providers Care Supervisor Seaming Name Role Phone Asa Mcnamara MD Unavailable [phone] Heber Adorno MD Primary Care Provider Unavailable Deisi Andrews MD Primary Care Provider [phone] Neva Holden MD Primary Care Provider [phone] Deisi Andrews MD Primary Care Provider [phone] Neva Holden MD Primary Care Provider [phone] Encounter Details Date Type Department Care Team (Late st Contact Info) Description 04/30/2017 Abstract [facility] AT [address] [id number] Rafael Thakur MA Social History Tobacco Use [...] filedocumented in this encounter Care Teams Supervisor Seaming Relationship Specialty Start Date End Date Heber Adorno MD PCP - General 03/11/17 06/14/17 Deisi Andrews MD [address] [place] [address] PCP - General FAMILY PRACTICE 06/15/17 10/14/19 Neva Holden MD . [facility] [address] [place] [address] PCP - [facility] FAMILY PRACTICE 10/15/19 12/05/19 Deisi Andrews MD [address] [place] [address] PCP - General FAMILY PRACTICE 12/06/19 02/13/20 Neva Holden MD SO. [facility] [address] [place] [address] PCP - [facility] FAMILY PRACTICE 02/14/20 Asa Mcnamara MD [facility]. [facility] [address] [place] [address] [place] Magneto Repairer CARDIOVASCULAR DISEASE 05/15/16 documented as of this encounter
--- OUTSIDE RECORDS SUMMARY | 2025-06-08 06:09 | XMS_ITS | Encounter Summary ---
Author Organization [facility] Address [address] [place] [address] Care Team Providers Care Rubbing Bed Operator Name Role Phone Asa Mcnamara MD Unavailable [phone] Neva Holden MD Primary Care Provider [phone] Deisi Andrews MD Primary Care Provider [phone] Neva Holden MD Primary Care Provider [phone] Encounter Details Date Type Department Care Team (Late st Contact Info) Description 11/01/2019 [facility] at [address] [address] Rafael Thakur MA Social History Tobacco Use Types Packs/Day Years Used Date Smoking Tobacco: Every Day Cigarettes Smokeless Tobacco: Never Comments:1 pk day Alcohol Use Standard Drinks/Week Comments No 0 (1 standard drink = 0.6 oz pur e alcohol) Comments Unknown Sex and Gender Information Value Date Recorded Sex Assigned at Female 12/06/2019 3:36 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 SALES 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 Legal Sex Female 5:20 PM CDT Gender Identity Female 12/06/2019 3:36 PM DISTRICT SALES 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 Sexual Orientation Straight 12/06/2019 3: 36 PM DISTRICT SALES 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 Occupation Industry Job Start Date Job [...] on filedocumented in this encounter Care Teams Rubbing Bed Operator Relationship Specialty Start Date End Date Neva Holden MD [facility] [address] [place] [address] PCP - General FAMILY PRACTICE 10/15/19 12/05/19 Deisi Andrews MD [address] [place] [address] PCP - General FAMILY PRACTICE 12/06/19 02/13/20 Neva Holden MD [facility] [address] [place] [address] PCP - General FAMILY PRACTICE 02/14/20 Asa Mcnamara MD [facility]. [facility] [address] [place] [address] [place] Auto Motor Mechanic CARDIOVASCULAR DISEASE 05/15/16 documented as of this encounter
--- OUTSIDE RECORDS SUMMARY | 2025-06-08 06:09 | XMS_ITS | Clinical Summary ---
Author Organization [facility] Address [address], [facility] [address] [place] [address] Phone Care Team Providers Care Aircraft Cabin Cleaner Name Role Phone Olu Nieto APRN, BROADCAST CHECKER Primary Care Provider Allergies Active Allergy Reactions [...] Insurance MEDICAID [employer] Care Teams Aircraft Cabin Cleaner Relationship Specialty Start Date End Date Olu Nieto, LABORATORY COORDINATOR, BROADCAST CHECKER [address] [place] [address] PCP - General Certified Nurse Practitioner 11/02/18
--- OUTSIDE RECORDS SUMMARY | 2025-06-08 06:09 | XMS_ITS | Clinical Summary ---
Author Organization [facility] Address [address] [place] [address] Care Team Providers Care Engineer Chief Name Role Phone Asa Mcnamara MD Unavailable [phone] Neva Holden MD Primary Care Provider [phone] Allergies Active Allergy Reactions Criticality Noted Date Comments Codeine Nausea and Vomiting 04/05/2019 Haloperidol Seizure 05/20/2016 Ketorolac Tromethamine Unknown 04/04/2013 Penicillins Hives,Redness High 04/04/2013 Auq-Ry-Rpd-Propyl Kfneiq-Sdh-Bcvhazove Seizure 05/20/2016 Risperidone And Paliperidone Hives,Other (see comment),Rash,Unknown Low 04/22/2015 Reported her [...] tablet 1 0 Active vitamin D2, ergocalciferol, 67202 UNITS capsule Take 50,000 Units by mouth [...] (primary) hypertension PVD (peripheral vascular disease) Emphyse[facility]COPD ([facility]) Diabetes ([facility]) Stroke ([facility]) Overview (05/20/2016): h/o Asthma ([facility]) Arthritis GERD (gastroesophageal reflux disease) Migraines Resolved [...] Sex Assigned at Female 12/06/2019 3:36 PM CUSTOMER AGENT Legal Sex Female 5:20 PM CDT Gender Identity Female 12/06/2019 3:36 PM CUSTOMER AGENT Sexual Orientation Straight 12/06/2019 3: 36 PM CUSTOMER AGENT Occupation Industry Job Start Date Job End Date Not on file Not on file Not on file Not on file Last Filed Vital Signs Vital Sign Reading Time Taken Comments Blood Pressure 102/80 06/14/2020 1:49 PM CDT Pulse 98 06/14/2020 1:49 PM CDT Temperature 36.9 C (98.4 F) 12/07/2017 8:32 AM CUSTOMER AGENT Respiratory Rate 18 12/07/2017 8:32 AM CUSTOMER AGENT Oxygen Saturation 95% 02/21/2020 8:36 AM CDT [...] 2021 COVID-19 Vaccine ( - season) 2024 Meningococcal B Vaccine Aged Out [...] 05/02/2020 LIPID PANEL Routine 12/19/2018 7:52 AM CUSTOMER AGENT Mixed hyperlipidemia from Last 3 Months or Most Recently Relevant to Health Maintenance Results * HEMOGLOBIN, GLYCOSYLATED (05/02/2020) HGB A1C 7.6 % 05/02/2020 us Doc [facility] LABORATORY Final Result * (ABNORMAL) LIPID PANEL (12/19/2018 7:52 AM CUSTOMER AGENT) CHOLESTEROL 173 <200 MG/DL 12/19/2018 8:31 AM [facility] TRIGLYCERIDES 155(H) <150 MG/DL 12/19/2018 8:31 AM [facility] HDL 44 >40.0 MG/DL 12/19/2018 8:31 AM [facility] LDL (CALCULATED) 98 <100 MG/DL 12/19/2018 8:31 AM [facility] NON HDL CHOLESTEROL 129 <130 MG/DL 12/19/2018 8:31 AM [facility] CHOL/HDL RATIO 3.9 0.0 - 4.5 12/19/2018 8:31 AM [facility] VLDL CALCULATION 31 5 - 55 MG/DL 12/19/2018 8:31 AM [facility] LIPID INTERPRETATION 12/19/2018 8:31 AM [facility] Comment: [facility] CONCENSUS REPORT RECOMMENDATIONS: ADULT CHILD LOW RISK: CHOLESTEROL <200 <170 TRIGLYCERIDE <150 --- HDL >=60 --- LDL <100 <110 BORDERLINE: CHOLESTEROL 200-239 170-199 TRIGLYCERIDE 150-199 --- HDL 40-59 --- LDL 100-159 110-129 HIGH RISK: CHOLESTEROL >=240 >=200 TRIGLYCERIDE >=200 --- HDL <40 --- LDL >=160 >=130 12/19/2018 7:52 AM CUSTOMER AGENT Asa Mcnamara MD LABORATORY Final Result [facility] [address] [place] [address], [place] [phone] from Last 3 Months or Most Recently Relevant to Health Maintenance Insurance [facility] Care Teams Engineer Chief Relationship Specialty Start Date End Date Neva Holden MD [facility] [address] [place] [address] PCP - General FAMILY PRACTICE 02/14/20 Asa Mcnamara MD [facility]. [facility] [address] [place] [address] [place] Ammonia Technician CARDIOVASCULAR DISEASE 05/15/16
--- OUTSIDE RECORDS SUMMARY | 2025-06-08 06:09 | XMS_ITS | Patient Health Record ---
Author Organization [facility] Address [address] [place] [address] Care Team Providers Care Brick Shader Name Role Phone Earl Bhandari Unavailable [phone] REASON FOR REFERRAL No Information PLAN OF TREATMENT No Information Insurance Providers Payer Name Payer Address Payer Phone Subscriber Number Group Number Insured Name Patient Relationship to Insured Coverage Start Date Coverage End Date [facility] [address] [place] [phone] [id number] Rody Zaidi Self - patient is the insured
--- OUTSIDE RECORDS SUMMARY | 2025-06-08 06:09 | XMS_ITS | Clinical Summary ---
Author Organization [facility] Address [address] [place] [address] Care Team Providers Care Surplus Property Disposal Agent Name Role Phone Provider, Abstract Primary Care [...] tablet Take 30 mg by mouth daily inside sales lead. Active losartan (COZAAR) 100 mg tablet Take [...] 05/27/2031 05/27/2021, 01/31/2019 Insurance , [address] [place] [address] [employer] MEDICAID Care Teams Surplus Property Disposal Agent Relationship Specialty Start Date End Date Provider, Abstract NO ADDRESS ON FILE PCP - General 03/24/19
--- OUTSIDE RECORDS SUMMARY | 2025-06-08 06:09 | XMS_ITS | Encounter Summary ---
Author Organization [facility] Address [address] [place] [address] Care Team Providers Care Patient Liaison Name Role Phone SullivanDane gonzalez DO Primary Care Provider [phone] Asa Mcnamara MD Unavailable [phone] Deisi Andrews MD Primary Care Provider [phone] Heber Adorno MD Primary Care Provider Unavailable Deisi Andrews MD Primary Care Provider [phone] Neva Holden MD Primary Care Provider [phone] Deisi Andrews MD Primary Care Provider [phone] Neva Holden MD Primary Care Provider [phone] Encounter Details Date Type Department Care Team (Late st Contact Info) Description 05/21/2016 Abstract [facility] AT [address] [address] Rafael Thakur MA Social History Tobacco Use Types Packs/Day Years Used Date Smoking Tobacco: Every Day Cigarettes Smokeless Tobacco: Never Alcohol Use Standard Drinks/Week Comments No 0 (1 standard drink = 0.6 oz pur e alcohol) Comments Unknown Sex and Gender Information Value Date Recorded Sex Assigned at Female 12/06/2019 3:36 PM COUNSELOR AIDE Legal Sex Female 5:20 PM CDT Gender Identity Female 12/06/2019 3:36 PM COUNSELOR AIDE Sexual Orientation Straight 12/06/2019 3: 36 PM COUNSELOR AIDE Occupation Industry Job Start Date Job End [...] filedocumented in this encounter Care Teams Patient Liaison Relationship Specialty Start Date End Date Dane Sullivan DO PCP - General FAMILY PRACTICE 05/15/16 02/11/17 Deisi Andrews MD [address] [place] [address] PCP - General FAMILY PRACTICE 02/13/17 03/10/17 Heber Adorno MD PCP - General 03/11/17 06/14/17 Deisi Andrews MD [address] [place] [address] PCP - General FAMILY PRACTICE 06/15/17 10/14/19 Neva Holden MD [facility] [address] PCP - General FAMILY PRACTICE 10/15/19 12/05/19 Deisi Andrews MD [address] [place] [address] PCP - General FAMILY PRACTICE 12/06/19 02/13/20 Neva Hold[facility] [address] [place] [address] PCP - General FAMILY PRACTICE 02/14/20 Asa Mcnamara MD [facility] [address] [place] [address] [place] Underground Electrician CARDIOVASCULAR DISEASE 05/15/16 documented as of this encounter
[2025-06-08] MEDS: ONDANSETRON INJ 4 MG/2 ML VIAL IV PUSH (06:16)
[2025-06-08] MEDS: ACETAMINOPHEN 500 MG TABLET 1000 MG PO (06:27)
[2025-06-08 06:31] LABS: Hematocrit 42.4 % (37.0-47.0); Hemoglobin 13.7 g/dL (12.0-15.0); Immature Granulocyte Percent A 0.5 % (0-0.5); Lymphocytes Absolute Auto 0.59 K/mm3 (0.9-3.2); Mean Corpuscular HGB Conc 32.3 g/dl (32-36); Mean Corpuscular Hemoglobin 29.3 pg (26-34); Mean Corpuscular Volume 90.8 fl (80-100); Nucleated Red Blood Cells Absolute Auto 0.000 K/mm3 (0.0-0.012); Nucleated Red Blood Cells Perc 0.0 % (0.0-0.2); Platelet Count Result 169 k/mm3 (150-375); Red Blood Count 4.67 M/mm3 (4.2-5.4); White Blood Count 7.9 K/mm3 (4.5-10.0)
--- NOTE | 2025-06-08 06:35 | PC.NURSE ---
Pt taken to CT on stretcher
--- NOTE | 2025-06-08 06:41 | PC.NURSE ---
Pt BM incontinent, pt changed and clean linen applied.
[2025-06-08] MEDS: IPRATROPIUM 0.5 MG/ALBUTEROL SULFATE 2.5 MG AMPUL.NEB 3 ML INHALATION ×2 (06:54→20:27)
[2025-06-08 06:55] LABS: Magnesium 1.6 mg/dL (1.6-2.3)
[2025-06-08 06:56] LABS: Alanine Aminotransferase 12 U/L (6-35); Albumin Level 4.1 g/dL (3.5-5.1); Alkaline Phosphatase 67 U/L (38-126); Anion Gap 8 mmol/L (4-12); Aspartate Amino Transferase 21 U/L (14-36); Bilirubin,Total 0.5 mg/dL (0.2-1.3); Blood Urea Nitrogen 22 mg/dL (7-17); Calcium 9.1 mg/dL (8.4-10.2); Carbon Dioxide 23 mmol/L (22-30); Chloride 106 mmol/L (98-107); Estimated Glomerular Filt Rate 42; Glucose 115 mg/dL (65-110); Potassium 4.5 mmol/L (3.4-5.0); Sodium 137 mmol/L (137-145); Total Protein 7.5 g/dL (6.3-8.2)
[2025-06-08 07:04] LABS: NT Pro B Type Natriuretic Pept 444 pg/mL (19.9-100)
[2025-06-08 07:06] LABS: Influenza A QL RT-PCR Negative (Negative); Influenza B QL RT-PCR Negative (Negative); RSV RNA, RT-PCR Negative (Negative); SARS-CoV-2 RNA PCR Negative (Negative)
[2025-06-08] MEDS: SODIUM CHLORIDE 0.9% IV 1,000 ML 999 ML IV CONT ×2 (07:18→19:38)
--- NOTE | 2025-06-08 07:19 | PC.NURSE ---
Bedside Shift report received from [facility]AS, patient updated to plan of care, not questions or concerns from patient at this time
[2025-06-08] MEDS: ALBUTEROL SULFATE NEB 2.5 MG/3 ML INH INHALATION (07:30)
[2025-06-08 08:52] LABS: Add Urine Microscopic? YES; Appearance Urine Clear (Clear); Glucose Urine UA Negative (Negative); Leukocyte Esterase Ur 2+ LEU/UL (Negative); Need Manual Microscopic Reviewed; Nitrate Urine Negative (Negative); Specific Grav Ur > 1.045 (1.001-1.035)
[2025-06-08] MEDS: AZITHROMYCIN 500 MG TABLET PO (08:57)
[2025-06-08] MEDS: MORPHINE SULFATE (*CRX) 2 MG/ML INJ IV PUSH (08:57)
[2025-06-08] MEDS: cefTRIAXone 1 GM in SODIUM CHLORIDE 0.9% IV 50 ML 100 ML IVPB (09:04)
[2025-06-08] MEDS: LACTATED RINGERS 1,000 ML 999 ML IV CONT ×2 (12:11→12:14)
[2025-06-08] MEDS: KETOROLAC 15 MG/ML VIAL (*BKC) IV PUSH (12:12)
--- NOTE | 2025-06-08 13:03 | ADMGEN ---
This patient, Rody Zaidi, was admitted to IMU Room 206-01 @ 1303. Patient/family oriented to hospital policies and general routines including ID bracelet, bed and alarms, visiting hours, pain management, procedures, bathroom and other care routines, personal items, smoking policy, room service/diet, and visiting hours. Information on how to activate the Rapid Response Team has been discussed. Patient/Family are encouraged to report perceived risks to care and to ask questions if they do not understand what they are told or what they should do.
[2025-06-08] MEDS: LACTATED RINGERS 1,000 ML 125 ML IV CONT (16:17)
--- NOTE | 2025-06-08 17:28 | P.HP_ITS ---
H&P: HPI History of Present Illness Date/Time: 06/08/25 17:28 Chief Complaint: Shortness of breath Narrative: 64-year-old female past medical history of diabetes type 2, hypertension, bladder cancer, CAD, bipolar, CATHERINE presents the hospital with shortness of breath, myalgias fever and chills. Patient states she had cystoscopy earlier this week due to her bladder cancer. She states that she always gets a urinary tract infection afterwards. She states that she has flank pain and bladder pain. She also complains of shortness of breath and frequent cough the sputum. Patient states that she has also had chills. , denies nausea or vomiting. Lab work shows D-dimer is 0.59, BUN of 22, creatinine 1.28, GFR 42, BNP of 444, UA with 2+ leukocyte esterase, 3-5 rbc's, over 100 wbc's and WBC clumps are present, and no epithelial cells present. Chest x-ray shows no acute process. CTA chest abdomen pelvis she has no PE,Moderate left perinephric fluid/stranding with mild hydronephrosis. There is mild urothelial thickening of the renal pelvis and proximal ureter. Review of Systems Review of Systems: 12 systems were reviewed and are negativ e except for as per HPI. [facility], [facility] Past Medical History Medical History Asthma Abdominal pain Pneumonia Colon polyps Hemorrhoid Paroxysmal atrial fibrillation History of diverticulitis Osteoarthritis Tobacco dependence Bladder cancer Hypertension Peripheral arterial disease Type 2 diabetes mellitus Gastroesophageal reflux disease Obstructive sleep apnea Cerebrovascular accident Chronic obstructive pulmonary disease Bipolar disorder Coronary artery disease Anxiety Hyperlipidemia Macular degeneration History of gastroesophageal reflux (GERD) History of diabetes mellitus History of bladder cancer Surgical History Surgical History History of transurethral resection of bladder tumor (TURBT) History of vascular surgery Bilateral iliac stent. History of section History of cardiac catheterization History of left-sided carotid endarterectomy History of carpal tunnel release History of colonoscopy History of esophagogastroduodenoscopy (EGD) History of cholecystectomy Family History Family History Sibling Diabetes mellitus Family history of malignant neoplasm Heart disease Social History Social History Smoking packs per day: 2 Smoking cigarettes per day: 40.0 Years smoked: 30 Smoking pack-years: 60.00 Smoking status: Current every day smoker Tobacco type: cigarettes Second hand tobacco smoke exposure: No Additional smoking assessment comments: pt. was smoking 3 packs a day and has cut down to half a pack daily Alcohol intake: former Substance use: current Substance use type: marijuana Do You Feel Safe in your Home?: Yes Lack of Transportation: No Lack of Food: Never True Current Housing: I Have Housing Concerned About Future Housing: No Difficulty Paying Gas/Electric Bills: No Difficulty Paying for Meds: No Currently Unemployed: No Education: High School Diploma/GED Difficulty w/ Childcare or Family Care: No Living arrangements: alone Spiritual care concerns: No Meds Home Medications and Allergies Home Medications ?Medication ?Instructions ?Recorded ?Confirmed ?Type clopidogrel 75 mg tablet 75 mg PO DAILY 05/20/21 06/08/25 History albuterol sulfate 90 mcg/actuation 2 puff inhalation QID PRN 07/29/23 06/08/25 Rx aerosol inhaler shortness of breath or wheezing #6.7 grams inhalational spacing device #1 ea 07/29/23 06/08/25 Rx (Aerochamber MV spacer) trazodone 50 mg tablet 50 mg PO HS PRN Insomnia 08/07/23 06/08/25 History apixaban 5 mg tablet (Eliquis) 5 mg PO Q12HR #60 tabs 08/11/23 06/08/25 Rx lorazepam 0.5 mg tablet 0.5 mg PO TID 08/26/23 06/08/25 History metformin 500 mg tablet 500 mg PO BID 08/26/23 06/08/25 History budesonide-formoterol HFA 160 See Rx Instructions .Route .COMPLEX 10/25/23 06/08/25 History mcg-4.5 mcg/actuation aerosol inhaler (Symbicort) ergocalciferol (vitamin D2) 1,250 50,000 unit PO WEEKLY 10/25/23 06/08/25 History mcg (50,000 unit) capsule oxybutynin chloride 5 mg tablet 5 mg PO TID #90 tabs 10/28/23 06/08/25 Rx cromolyn 4 % eye drops 1 drp EACH EYE DAILY 03/02/24 06/08/25 History fluticasone propionate 50 1 spray intranasal DAILY 03/02/24 06/08/25 History mcg/actuation nasal spray,suspension dexlansoprazole 30 mg See Rx Instructions .Route 08/24/24 06/08/25 Rx capsule,biphase delayed release .COMPLEX #30 caps albuterol sulfate 2.5 mg/3 mL 2.5 mg inhalation Q6H PRN 11/05/24 06/08/25 History (0.083 %) solution for nebulization shortness of breath or wheezing fenofibrate 120 mg tablet 120 mg PO DAILY 11/05/24 06/08/25 History magnesium oxide 400 mg (241.3 mg 400 mg PO DAILY #7 tabs 11/10/24 06/08/25 Rx magnesium) tablet midodrine 2.5 mg tablet 5 mg (2 x 2.5 mg) PO BID #60 tabs 11/18/24 06/08/25 Rx sotalol 80 mg tablet 120 mg PO DAILY 12/01/24 06/08/25 History losartan 50 mg tablet (Cozaar) 50 mg PO DAILY #60 tabs 12/04/24 06/08/25 Rx nebulizer and compressor (Lydia #1 ea 12/04/24 06/08/25 Rx Trek S Combo Pack device) blood-glucose meter (OneTouch 02/14/25 06/08/25 History Ultra2 Meter) clonazepam 0.5 mg tablet 0.25 mg PO TID PRN anxiety 02/14/25 06/08/25 History fluoxetine 20 mg capsule mg 02/14/25 05/24/25 History gabapentin 300 mg capsule 300 mg PO TID 02/14/25 06/08/25 History lancets 28 gauge (Safety Lancets) 02/14/25 06/08/25 History lancets 30 gauge 02/14/25 06/08/25 History losartan 100 mg tablet 100 mg PO DAILY 02/14/25 06/08/25 History bupropion HCl 150 mg tablet,12 hr 150 mg PO DAILY 04/19/25 06/08/25 History sustained-release (Wellbutrin SR) evolocumab 140 mg/mL subcutaneous 140 mg subcut MONTHLY #2 mL 04/19/25 06/08/25 Rx pen injector (Latha Lau) triamcinolone acetonide 0.5 % 1 applic topical BID #15 grams 04/19/25 06/08/25 Rx topical cream montelukast 10 mg tablet 10 mg PO QPM #90 tabs 05/17/25 06/08/25 Rx alendronate 70 mg tablet 70 mg PO WEEKLY #12 tabs 05/24/25 06/08/25 Rx cetirizine 10 mg tablet 10 mg PO DAILY #90 tabs 05/24/25 06/08/25 Rx sulfamethoxazole 800 1 tablet PO Q12H #20 tabs 05/24/25 06/08/25 Rx mg-trimethoprim 160 mg tablet (Bactrim DS) ezetimibe 10 mg tablet See Rx Instructions .Route 05/30/25 06/08/25 Rx .COMPLEX #90 tabs Allergies Allergy/AdvReac Type Severity Reaction Status Date / Time haloperidol Allergy Unknown Other Verified 06/08/25 09:09 risperidone Allergy Unknown MY MOUTH Verified 06/08/25 09:09 TIGHTENS UP-TD simvastatin Allergy Unknown Other Verified 06/08/25 09:09 Qqqosgq-FCP-LvS Reductase Allergy Other Verified 06/08/25 09:09 Inhibitor codeine AdvReac Unknown NAUSEA AND Verified 06/08/25 09:09 VOMITING triazolam AdvReac Unknown N/V Verified 06/08/25 09:09 Wasp Allergy Unknown WASP Uncoded 06/08/25 09:09 STING- CLOSES MY THROAT Vital Signs Vital Signs - 24 hr 06/08/25 05:33 06/08/25 06:46 06/08/25 06:55 Temperature 103.1 F H Pulse Rate 93 97 92 Respiratory Rate 22 H 14 Blood Pressure 102/56 L Pulse Oximetry 99 97 Oxygen Delivery Room Air 06/08/25 07:01 06/08/25 07:30 06/08/25 07:38 Temperature Pulse Rate 91 91 93 Respiratory Rate 18 17 17 Blood Pressure Pulse Oximetry Oxygen Delivery 06/08/25 09:52 06/08/25 09:55 06/08/25 10:05 Temperature Pulse Rate 87 102 H 84 Respiratory Rate 16 18 20 Blood Pressure 102/64 Pulse Oximetry 96 97 97 Oxygen Delivery 06/08/25 10:31 06/08/25 10:45 06/08/25 10:49 Temperature Pulse Rate 85 82 85 Respiratory Rate 22 H 19 17 Blood Pressure 125/80 Pulse Oximetry Oxygen Delivery 06/08/25 10:50 06/08/25 10:51 06/08/25 11:30 Temperature 98.6 F Pulse Rate 80 80 79 Respiratory Rate 23 H 23 H 18 Blood Pressure 71/38 L 86/73 L Pulse Oximetry 99 Oxygen Delivery 06/08/25 12:32 06/08/25 12:40 06/08/25 15:32 Temperature 98.6 F 98.4 F 98.6 F Pulse Rate 81 71 74 Respiratory Rate 18 20 22 H Blood Pressure 95/54 L 99/78 L 88/50 L Pulse Oximetry 97 97 97 Oxygen Delivery Exam Narrative: General: Chronically ill-appearing, no acute distress HEENT: normocephalic, atraumatic. Mucous membranes moist. EOMI, PERRLA, bilateral sclera anicteric, no conjunctival injection. Neck supple without JVD, lymphadenopathy, or bruit. Respiratory: clear to ascultation bilaterally. No rales/rhonic/wheezes. Cardiovascular: Regular rate and rhythm, normal S1-S2 upon ascultation. No murmurs, rubs, or clicks. PMI is nondisplaced, capillary refill less than 3 second. Abdomen: Soft, round, no pulsatile masses, nondistended and nontender. No rebound, no guarding. No CVA tenderness, no hepatosplenomegaly. Bowel sounds present to all four quadrants. No high pitch or tinkling sounds, resonant to percussion. Extremities: No cyanosis, clubbing, or edema present. Pulses are palpable 2/2. Active ROM to all four extremities. Neuro: Alert and orientated x 4. PERRLA. Cranial nerves 2-12 intact without focal deficit. Skin: Warm, dry, and intact, without rash, erythema, or lesion. Psych: pleasant, cooperative, normal speech, normal affect, no hallucinations, no dysarthia H&P: Results Labs Labs: Short CBC 06/08/25 Range/Units 06:21 WBC 7.9 (4.5-10.0) K/mm3 Hgb 13.7 (12.0-15.0) g/dL Hct 42.4 (37.0-47.0) % Plt Count 169 (150-375) k/mm3 [facility] 06/08/25 06:21 Sodium 137 Potassium 4.5 Chloride 106 Carbon Dioxide 23 BUN 22 H Creatinine 1.28 H Glucose 115 H Calcium 9.1 Liver Function 06/08/25 Range/Units 06:21 Total Bilirubin 0.5 (0.2-1.3) mg/dL AST 21 (14-36) U/L ALT 12 (6-35) U/L Alkaline Phosphatase 67 (38-126) U/L Albumin 4.1 (3.5-5.1) g/dL Urine 06/08/25 Range/Units 08:19 Urine Color Yellow (Yellow) Urine Appearance Clear (Clear) Urine pH 5.5 (5.0-9.0) Ur Specific [place] > 1.045 H (1.001-1.035) Urine Protein 3+ H (Negative) mg/dL Urine Glucose (UA) Negative (Negative) mg/dL Assessment and Plan Assessment and plan (1) COPD exacerbation: Code(s): J44.1 - Chronic obstructive pulmonary disease with (acute) exacerbation Status: Acute Assessment and Plan: Azithromycin and Rocephin given in the ED Azithromycin changed to doxy DuoNeb Guaifenesin Solu-Medrol followed by prednisone (2) JAYLEN (acute kidney injury): Code(s): N17.9 - Acute kidney failure, unspecified Status: Acute Assessment and Plan: IVF for hydration BMP in the morning (3) Elevated brain natriuretic peptide (BNP) level: Code(s): R79.89 - Other specified abnormal findings of blood chemistry Status: Acute Assessment and Plan: Echocardiogram pending Lung sounds are clear patient appears to be dehydrated Monitor for fluid overload (4) Atrial fibrillation: Code(s): I48.91 - Unspecified atrial fibrillation Status: Chronic Assessment and Plan: Continue Eliquis and Stadol (5) Diabetes type 2, controlled: Code(s): E11.9 - Type 2 diabetes mellitus without complications Status: Chronic Assessment and Plan: High-dose SSI due to steroids A.c. HS Diabetic diet (6) Hypertension: Code(s): I10 - Essential (primary) hypertension Status: Acute Assessment and Plan: Continue Freda Quality VTE Prophylaxis VTE prophylaxis: mechanical ordered and pharmacologic ordered Hospitalist [facility] Advance Care Plan I have confirmed that the patient's Advanced Care Plan is present, code status is documented, or surrogate decision maker is listed in patient medical record.: Yes Medication Reconciliation I have utilized all available resources to obtain, update and review the patients current medications (includes all prescriptions, OTC, herbals, cannabis, and nutritional supplements).: Yes
[2025-06-08] MEDS: ACETAMINOPHEN 325 MG TABLET 650 MG PO (18:18)
[2025-06-08] MEDS: MONTELUKAST SODIUM 10 MG TABLET PO (18:22)
[2025-06-08] MEDS: clonazePAM (*CRX) 0.25 MG TABLET PO (18:31)
[2025-06-08] MEDS: HYDROcodone/acetaminophen (*CRX) 5-325 MG TABLET 1 TAB PO (19:42)
[2025-06-08] MEDS: APIXABAN 5 MG TABLET PO (20:44)
[2025-06-08] MEDS: EZETIMIBE 10 MG TABLET BY MOUTH (20:44)
[2025-06-08] MEDS: DOXYCYCLINE HYCLATE 100 MG TABLET PO (20:45)
[2025-06-08] MEDS: SODIUM CHLORIDE 0.9% IV 1,000 ML 125 ML IV CONT (21:17)
[2025-06-09] VITALS (15 sets, daily range): BP systolic 129–154; BP diastolic 72–87; PULSE 66–88; RESP 18–20; TEMP 36.4–36.9; O2SAT 98–100
--- NOTE | 2025-06-09 | ECHO_ITS ---
Patient Info Name: Rody Zaidi Age: 64 years : 1960 Gender: Female Ht: 61 in Wt: 203 lbs BSA: 2.04 m2 HR: 73 bpm BP: 137 / 76 mmHg Technical Quality: Good Exam Date: 06/09/2025 9:44 AM Patient Status: O Admit Date: 06/08/2025 Exam Type: CA echo limited Limited two-dimensional transthoracic echocardiogram is performed. Staff Referring Physician: [facility] Sales Consultant: Heavenly Alfaro Attending Provider: Yoanna Moraes MD Summary 1. There is normal biventricular size and systolic function. 2. There are no significant valvular abnormalities. Left Ventricle The left ventricle is normal in size and systolic function. The left ventricular ejection fraction is visually estimated to be 60-65%. There are no regional wall motion abnormalities. Right Ventricle The right ventricle is normal in size and systolic function. Left Atria Left atrium visually appears normal in size. Right Atria Right atrium visually appears normal in size. Atrial Septum The atrial septum visually appears intact. Aortic Valve The aortic valve is not well visualized. There is no echocardiographic Doppler evidence of hemodynamically significant aortic stenosis. There is no aortic regurgitation. Pulmonic Valve The pulmonic valve is not well visualized. Mitral Valve The mitral valve is normal. There is mitral annular calcification. There is trace mitral regurgitation. Tricuspid Valve The tricuspid valve is normal. There is trace tricuspid regurgitation. Pericardium/Pleural Pericardium is normal in appearance with no evidence for significant pericardial effusion. Inferior Vena Cava Dilated inferior vena cava with >50% collapse upon inspiration consistent with elevated right atrial pressure, 8 mmHg. Aorta The aortic root is not well visualized. Left Ventricular Outflow Tract Name Value Normal LVOT Doppler LVOT Peak Velocity 173 cm/s LVOT Peak Gradient 12 mmHg LVOT Mean Gradient 6 mmHg LVOT VTI 41 cm LVOT VTI/AV VTI Ratio 0.8 Pulmonic Valve Name Value Normal RVOT Doppler RVOT Peak Velocity 71 cm/s RVOT Peak Gradient 2 mmHg PV Doppler PV Peak Velocity 123 cm/s PV Peak Gradient 6 mmHg Mitral Valve Name Value Normal MV Diastolic Function MV E Peak Velocity 106 cm/s MV A Peak Velocity 116 cm/s MV E/A 0.9 MV Decel Time (PW) 259 ms MV Annular TDI MV E/e' (Septal) 15.9 MV E/e' (Lateral) 14.6 MV E/e' (Average) 15.3 Tricuspid Valve Name Value Normal Estimated PAP/RSVP RA Pressure 8 mmHg <=5 Aortic Valve Name Value Normal AV Doppler AV Peak Velocity 220 cm/s AV Peak Gradient 19 mmHg AV Mean Gradient 9 mmHg AV VTI 49 cm AV DI (Efren) 0.78 Ventricles Name Value Normal LV Dimensions 2D/MM IVS Diastolic Thickness (2D) 0.9 cm 0.6-1.0 LVID Diastole (2D) 4.0 cm 3.8-5.2 LVIW Diastolic Thickness (2D) 0.9 cm 0.6-0.9 LVID Systole (2D) 2.5 cm 2.2-3.5 LV Mass (2D Cubed) 115.58 g 67.00-162.00 LV Mass Index (2D Cubed) 57 g/m2 43-95 Relative Wall Thickness (2D) 0.46 <=0.42 LV Fractional Shortening/Ejection Fraction 2D/MM LV Fractional Shortening (2D) 38 % 27-45 LV EF (2D Teichholz) 69 % LV Diastolic Volume (4C MOD) 91 ml LV EF (4C MOD) 64 % LV Diastolic Volume (2C MOD) 87 ml LV EF (2C MOD) 65 % LV Diastolic Volume (BP MOD) 89 ml 46-106 LV Diastolic Volume Index (BP MOD) 44 ml/m2 29-61 LV Systolic Volume (BP MOD) 31 ml 14-42 LV Systolic Volume Index (BP MOD) 15 ml/m2 8-24 LV EF (BP MOD) 65 % 54-74 LV Diastolic Length (4C) 7.2 cm LV Systolic Length (4C) 5.9 cm LV Stroke Volume (4C MOD) 59 ml Report Signatures
[2025-06-09 04:29] LABS: Hematocrit 34.0 % (37.0-47.0); Hemoglobin 11.0 g/dL (12.0-15.0); Immature Granulocyte Percent A 0.3 % (0-0.5); Lymphocytes Absolute Auto 0.48 K/mm3 (0.9-3.2); Mean Corpuscular HGB Conc 32.4 g/dl (32-36); Mean Corpuscular Hemoglobin 29.2 pg (26-34); Mean Corpuscular Volume 90.2 fl (80-100); Nucleated Red Blood Cells Absolute Auto 0.000 K/mm3 (0.0-0.012); Nucleated Red Blood Cells Perc 0.0 % (0.0-0.2); Platelet Count Result 141 k/mm3 (150-375); Red Blood Count 3.77 M/mm3 (4.2-5.4); White Blood Count 6.2 K/mm3 (4.5-10.0)
[2025-06-09 04:43] LABS: Anion Gap 7 mmol/L (4-12); Blood Urea Nitrogen 16 mg/dL (7-17); Calcium 8.5 mg/dL (8.4-10.2); Carbon Dioxide 19 mmol/L (22-30); Chloride 112 mmol/L (98-107); Estimated CRCL calculation 59 ml/min; Estimated Glomerular Filt Rate > 60; Glucose 216 mg/dL (65-110); Potassium 4.1 mmol/L (3.4-5.0); Sodium 138 mmol/L (137-145)
[2025-06-09] MEDS: SODIUM CHLORIDE 0.9% IV 1,000 ML 125 ML IV CONT ×2 (05:24→14:01)
[2025-06-09] MEDS: ACETAMINOPHEN 325 MG TABLET 650 MG PO (05:30)
[2025-06-09] MEDS: IPRATROPIUM 0.5 MG/ALBUTEROL SULFATE 2.5 MG AMPUL.NEB 3 ML INHALATION ×3 (08:14→22:23)
[2025-06-09] MEDS: INSULIN ASPART (*BKC) 100 UNITS/ML SUB-Q ×2 (08:20→21:22)
[2025-06-09] MEDS: PANTOPRAZOLE 40 MG TABLET PO (08:22)
[2025-06-09] MEDS: clonazePAM (*CRX) 0.25 MG TABLET PO (08:22)
[2025-06-09] MEDS: LOSARTAN POTASSIUM 100 MG TABLET PO (08:22)
[2025-06-09] MEDS: DOXYCYCLINE HYCLATE 100 MG TABLET PO ×2 (08:22→21:18)
[2025-06-09] MEDS: HYDROcodone/acetaminophen (*CRX) 5-325 MG TABLET 1 TAB PO ×3 (08:22→21:18)
[2025-06-09] MEDS: CLOPIDOGREL BISULFATE 75 MG TABLET PO (08:22)
[2025-06-09] MEDS: GABAPENTIN 300 MG CAPSULE PO ×3 (08:22→18:20)
[2025-06-09] MEDS: DOCUSATE SODIUM 100 MG CAPSULE PO ×2 (08:23→18:20)
[2025-06-09] MEDS: buPROPion HCL SR (12 HR) 150 MG TAB PO (08:23)
[2025-06-09] MEDS: LORATADINE 10 MG TABLET PO (08:23)
[2025-06-09] MEDS: cefTRIAXone 1 GM in SODIUM CHLORIDE 0.9% IV 50 ML 100 ML IVPB (08:24)
[2025-06-09] MEDS: APIXABAN 5 MG TABLET PO ×2 (08:24→21:19)
[2025-06-09] MEDS: EZETIMIBE 10 MG TABLET BY MOUTH (08:24)
[2025-06-09] MEDS: NICOTINE (*PBKC) 14 MG PATCH 1 PATCH TRANSDERM (08:44)
[2025-06-09] MEDS: ALENDRONATE SODIUM 70 MG TABLET PO (10:57)
--- NOTE | 2025-06-09 13:23 | P.PNIM_ITS ---
Progress Note: A&P Assessment and Plan (1) COPD exacerbation: Code(s): J44.1 - Chronic obstructive pulmonary disease with (acute) exacerbation Status: Acute Assessment and Plan: Azithromycin and Rocephin given in the ED Azithromycin changed to doxy DuoNeb Guaifenesin Solu-Medrol followed by prednisone 06/09/25: * Continue current regimen. * Continue po Prednisone. * Not requiring supplemental oxygen. (2) Urinary tract infection: Code(s): N39.0 - Urinary tract infection, site not specified Status: Acute Assessment and Plan: 06/09/25: * Continue Rocephin 1G Q24 hrs. * Urine culture is pending. (3) JAYLEN (acute kidney injury): Code(s): N17.9 - Acute kidney failure, unspecified Status: Resolved Assessment and Plan: IVF for hydration BMP in the morning 06/09/25: * Pt's renal function is normal at 0.88/16. (4) Elevated brain natriuretic peptide (BNP) level: Code(s): R79.89 - Other specified abnormal findings of blood chemistry Status: Acute Assessment and Plan: Echocardiogram pending Lung sounds are clear patient appears to be dehydrated Monitor for fluid overload 06/09/25: * Pt's ECHO is pending still. * Appears euvolemic. (5) Atrial fibrillation: Code(s): I48.91 - Unspecified atrial fibrillation Status: Chronic Assessment and Plan: Continue Eliquis and Stadol (6) Diabetes type 2, controlled: Code(s): E11.9 - Type 2 diabetes mellitus without complications Status: Chronic Assessment and Plan: High-dose SSI due to steroids A.c. HS Diabetic diet (7) Hypertension: Code(s): I10 - Essential (primary) hypertension Status: Acute Assessment and Plan: Continue Freda Time Spent With Patient Time with patient: 15 - 25 minutes Subjective Date/time seen: 06/09/25 13:23 Interval history: This 64 year old female pt is examined today at the bedside after being admitted to the hospital for UTI, Dyspnea and generally feeling unwell. She had an ECHO today and results are pending. She still reports that she does not feel improved overall and has pain in her lateral ribs with breathing, worse on the left side. Urine and blood cultures are pending. She is on room air and not requiring any supplemental oxygen. She does request that we dose her with her Alendronate tomorrow as it is the day of the week she is due. Review of Systems Review of Systems: All systems reviewed & are unremarkable except as noted in HPI and below Exam Narrative: General: Chronically ill-appearing, no acute distress, sitting up in bed speaking in full, unbroken sentences. HEENT: normocephalic, atraumatic. MMM present. EOMI, PERRLA, bilateral sclera anicteric, no conjunctival injection. Neck supple without JVD, lymphadenopathy, or bruit. Respiratory: clear to auscultation bilaterally. No rales/rhonchi/wheezes. Cardiovascular: Regular rate and rhythm, normal S1-S2 upon auscultation. No murmurs, rubs, or clicks. PMI is nondisplaced, capillary refill less than 3 second. Abdomen: Soft, round, no pulsatile masses, nondistended and nontender. No reboun d, no guarding. No CVA tenderness, no hepatosplenomegaly. Bowel sounds present to all four quadrants. No high pitch or tinkling sounds, resonant to percussion. Extremities: No cyanosis, clubbing, or edema present. Pulses are palpable 2/2. Active ROM to all four extremities. Neuro: Alert and orientated x 4. PERRLA. Cranial nerves 2-12 intact without focal deficit. Skin: Warm, dry, and intact, without rash, erythema, or lesion. Psych: pleasant, cooperative, normal speech, normal affect, no hallucinations, no dysartrhia Objective Data Vital Signs Vital Signs: Vital Signs - 24 hr 06/08/25 14:00 06/08/25 15:32 06/08/25 16:00 Temperature 98.6 F Pulse Rate 75 74 Respiratory Rate 22 H Blood Pressure 88/50 L Pulse Oximetry 97 96 Oxygen Delivery Room Air Fraction of Inspired Oxygen 06/08/25 16:00 06/08/25 18:00 06/08/25 19:44 Temperature 98.1 F Pulse Rate 71 78 78 Respiratory Rate 20 Blood Pressure 129/79 Pulse Oximetry 99 Oxygen Delivery Fraction of Inspired Oxygen 06/08/25 20:00 06/08/25 20:00 06/08/25 20:27 Temperature Pulse Rate 78 74 Respiratory Rate 18 Blood Pressure Pulse Oximetry Oxygen Delivery Room Air Fraction of Inspired Oxygen 06/08/25 20:31 06/08/25 20:36 06/08/25 22:00 Temperature Pulse Rate 74 77 83 Respiratory Rate 18 Blood Pressure Pulse Oximetry 98 Oxygen Delivery Room Air Fraction of Inspired Oxygen 21 06/08/25 23:58 06/09/25 00:00 06/09/25 00:00 Temperature 97.5 F L Pulse Rate 76 83 Respiratory Rate 18 Blood Pressure 118/65 Pulse Oximetry 98 Oxygen Delivery Room Air Fraction of Inspired Oxygen 06/09/25 02:00 06/09/25 03:37 06/09/25 04:00 Temperature 97.6 F Pulse Rate 74 76 Respiratory Rate 18 Blood Pressure 151/74 H Pulse Oximetry 98 Oxygen Delivery Room Air Fraction of Inspired Oxygen 06/09/25 04:00 06/09/25 06:00 06/09/25 08:00 Temperature 98.5 F Pulse Rate 66 85 85 Respiratory Rate 18 Blood Pressure 137/76 Pulse Oximetry 100 Oxygen Delivery Fraction of Inspired Oxygen 06/09/25 08:17 06/09/25 08:23 06/09/25 12:00 Temperature 98.4 F Pulse Rate 88 86 68 Respiratory Rate 18 20 Blood Pressure 129/72 Pulse Oximetry 99 Oxygen Delivery Fraction of Inspired Oxygen Intake/Output Intake/Output: Intake & Output 06/06/25 06/07/25 06/08/25 06/09/25 23:59 23:59 23:59 23:59 Intake Total 1290 1570 Output Total 20 800 Balance 1270 770 Meds/Results Medications: Active Medications Generic Name Dose Route Start Last Admin Trade Name Freq PRN Reason Stop Dose Admin Acetaminophen 650 mg 06/08/25 17:35 06/09/25 05:30 Acetaminophen 325 Mg Tablet PO 650 mg Q4H PRN Administration Mild Pain (1-3) or Fever Hydrocodone Bitart/Acetaminophen 1 tab 06/08/25 17:35 06/09/25 08:22 Hydrocodone/Acetaminophen (*Crx) 5-325 Mg Tablet PO 1 tab Q4H PRN Administration Moderate Pain (4-6) Albuterol/Ipratropium 3 ml 06/08/25 20:00 06/09/25 08:14 Ipratropium 0.5 Mg/Albuterol Sulfate 2.5 Mg Ampul.Neb 3 Ml INHALATION 3 ml Q6HRT LANCE Administration Alendronate Sodium 70 mg 06/09/25 11:00 06/09/25 10:57 Alendronate Sodium 70 Mg Tablet PO 70 mg WEEKLY LANCE Administration Apixaban 5 mg 06/08/25 21:00 06/09/25 08:24 Apixaban 5 Mg Tablet PO 5 mg Q12HR LANCE Administration Bupropion HCl 150 mg 06/09/25 09:00 06/09/25 08:23 Bupropion Hcl Sr (12 Hr) 150 Mg Tab PO 150 mg DAILY LANCE Administration Clonazepam 0.25 mg 06/08/25 17:38 06/09/25 08:22 Clonazepam (*Crx) 0.25 Mg Tablet PO 0.25 mg TID PRN Administration anxiety Clopidogrel Bisulfate 75 mg 06/09/25 09:00 06/09/25 08:22 Clopidogrel Bisulfate 75 Mg Tablet PO 75 mg DAILY LANCE Administration Cyclobenzaprine HCl 10 mg 06/09/25 10:04 Cyclobenzaprine Hcl 10 Mg Tablet PO Q8H PRN Muscle Spasm Dextrose 12.5 gm 06/08/25 17:43 Dextrose 50% 25 Gm/50 Ml Syringe IV PUSH PRN PRN Hypoglycemia Protocol Docusate Sodium 100 mg 06/09/25 09:00 06/09/25 08:23 Docusate Sodium 100 Mg Capsule PO 100 mg BID LANCE Administration Doxycycline Hyclate 100 mg 06/08/25 21:00 06/09/25 08:22 Doxycycline Hyclate 100 Mg Tablet PO 100 mg Q12HR LANCE Administration Ezetimibe 10 mg 06/08/25 19:10 06/09/25 08:24 Ezetimibe 10 Mg Tablet BY MOUTH 10 mg DAILY LANCE Administration Gabapentin 300 mg 06/09/25 09:00 06/09/25 08:22 Gabapentin 300 Mg Capsule PO 300 mg TID LANCE Administration Glucagon 1 mg 06/08/25 17:43 Glucagon For Inj 1 Mg Vial IM PRN PRN Hypoglycemia Protocol Glucose 15 gm 06/08/25 17:43 Glucose Oral Gel 15 Gm Of Glucse In 37.5 Gm Tube PO PRN PRN Hypoglycemia Protocol Guaifenesin/Dextromethorphan 10 ml 06/08/25 21:00 06/09/25 08:25 Guaifenesin/Dextromethorphan 10 Ml Udc PO 10 ml Q4H LANCE Administration Ceftriaxone Sodium 1 gm/ 50 mls @ 100 mls/hr 06/09/25 09:00 06/09/25 08:24 Sodium Chloride IVPB 100 mls/hr Q24H LANCE Administration Sodium Chloride 1,000 mls @ 125 mls/hr 06/08/25 17:40 06/09/25 05:24 Normal Saline Iv IV CONT 125 mls/hr .Q8H LANCE Administration Dextrose 1,000 mls @ 100 mls/hr 06/08/25 17:43 Dextrose 5% 1,000 Ml IVPB PRN PRN Hypoglycemia Protocol Insulin Aspart 2 - 4 units 06/08/25 21:00 06/08/25 21:54 Insulin Aspart (*Bkc) 100 Units/Ml SUB-Q Not Given HS LANCE Protocol Insulin Aspart 4 - 8 units 06/09/25 08:00 06/09/25 11:54 Insulin Aspart (*Bkc) 100 Units/Ml SUB-Q Not Given TIDWM LANCE Protocol Loratadine 10 mg 06/09/25 09:00 06/09/25 08:23 Loratadine 10 Mg Tablet PO 10 mg QAM LANCE Administration Losartan Potassium 100 mg 06/09/25 09:00 06/09/25 08:22 Losartan Potassium 100 Mg Tablet PO 100 mg DAILY LANCE Administration Montelukast Sodium 10 mg 06/08/25 18:00 06/08/25 18:22 Montelukast Sodium 10 Mg Tablet PO 10 mg QPM LANCE Administration Morphine Sulfate 2 mg 06/08/25 17:35 Morphine Sulfate (*Crx) 2 Mg/Ml Inj IV PUSH Q4H PRN Pain Rated 7-10 Nicotine 1 patch 06/09/25 09:00 06/09/25 08:44 Nicotine (*Pbkc) 14 Mg Patch TRANSDERM 1 patch DAILY LANCE Administration Ondansetron HCl 4 mg 06/08/25 09:12 Ondansetron Inj 4 Mg/2 Ml Vial IV PUSH Q4H PRN Nausea Pantoprazole Sodium 40 mg 06/09/25 09:00 06/09/25 08:22 Pantoprazole 40 Mg Tablet PO 40 mg QAM LANCE Administration Perflutren Lipid Microsphere 0 ml 06/08/25 17:47 Perflutren Lipid Microspheres 1.5 Ml Vial Diluted To 10 Ml Total Volume IV PUSH 06/11/25 17:47 ONCE PRN adequate visualization Protocol Polyethylene Glycol 17 gm 06/09/25 08:39 06/09/25 08:45 Polyethylene Glycol 3350 17 Gm Powd.Pack PO 17 gm QAM PRN Administration Constipation Prednisone 40 mg 06/09/25 08:00 06/09/25 08:22 Prednisone 20 Mg Tablet PO 06/14/25 07:59 40 mg DAILY@0800 LANCE Administration Sotalol HCl 120 mg 06/09/25 09:00 06/09/25 08:23 Sotalol Hcl 40 Mg Tablet PO 120 mg DAILY LANCE Administration Radiology Results: ITS Impressions Chest X-Ray 06/08/25 06:51 IMPRESSION: 1: NO ACUTE CARDIOPULMONARY DISEASE. Chest/Abdomen/Pelvis CTA 06/08/25 08:02 IMPRESSION: 1. Moderate left perinephric fluid/stranding with mild hydronephrosis. There is mild urothelial thickening of the renal pelvis and proximal ureter. Consider ascending urinary tract infection/pyelonephritis in the appropriate clinical setting. 2: No acute cardiopulmonary disease. Labs Labs: Laboratory Results - last 24 hr 06/08/25 06/09/25 06/09/25 20:41 03:47 08:19 WBC 6.2 RBC 3.77 L Hgb 11.0 L Hct 34.0 L MCV 90.2 MCH 29.2 MCHC 32.4 RDW 13.1 Plt Count 141 L MPV 10.2 Immature Gran % (Auto) 0.3 Neut % (Auto) 89.2 H Lymph % (Auto) 7.7 L Sullivan % (Auto) 2.4 L Eos % (Auto) 0.2 Baso % (Auto) 0.2 Lymph # (Auto) 0.48 L Sullivan # (Auto) 0.2 Eos # (Auto) 0.0 Baso # (Auto) 0.0 Abs Immat Gran (auto) 0.02 Absolute Neuts (auto) 5.5 Absolute Nucleated RBC 0.000 Nucleated RBC % 0.0 Sodium 138 Potassium 4.1 Chloride 112 H Carbon Dioxide 19 L Anion Gap 7 BUN 16 Creatinine 0.88 Estim Creat Clear Calc 59 Estimated GFR > 60 Glucose 216 H POC Capillary Glucose 183 H 226 H Calcium 8.5 06/09/25 11:41 WBC RBC Hgb Hct MCV MCH MCHC RDW Plt Count MPV Immature Gran % (Auto) Neut % (Auto) Lymph % (Auto) Sullivan % (Auto) Eos % (Auto) Baso % (Auto) Lymph # (Auto) Sullivan # (Auto) Eos # (Auto) Baso # (Auto) Abs Immat Gran (auto) Absolute Neuts (auto) Absolute Nucleated RBC Nucleated RBC % Sodium Potassium Chloride Carbon Dioxide Anion Gap BUN Creatinine Estim Creat Clear Calc Estimated GFR Glucose POC Capillary Glucose 181 H Calcium Quality VTE Prophylaxis VTE prophylaxis: pharmacologic ordered
[2025-06-09] MEDS: MONTELUKAST SODIUM 10 MG TABLET PO (18:23)
[2025-06-09] MEDS: CYCLOBENZAPRINE HCL 10 MG TABLET PO (21:22)
[2025-06-10] VITALS (8 sets, daily range): BP systolic 139–187; BP diastolic 69–98; PULSE 60–95; RESP 20–24; TEMP 36.7–36.8; O2SAT 90–100
[2025-06-10] MEDS: SODIUM CHLORIDE 0.9% IV 1,000 ML 125 ML IV CONT ×2 (01:56→15:28)
[2025-06-10] MEDS: IPRATROPIUM 0.5 MG/ALBUTEROL SULFATE 2.5 MG AMPUL.NEB 3 ML INHALATION ×2 (02:02→08:43)
--- NOTE | 2025-06-10 02:02 | PCRCNOTE ---
Pt declined her 0200 tx. Stated she would call if needed.
--- NOTE | 2025-06-10 08:06 | P.PNIM_ITS ---
Progress Note: A&P Assessment and Plan (1) Acute pyelonephritis: Code(s): N10 - Acute pyelonephritis Status: Acute Assessment and Plan: ACTIVE, IMPROVING Fever 103.1 on admission, bacteremia 06/08 CT CAP 1. Moderate left perinephric fluid/stranding with mild hydronephrosis. There is mild urothelial thickening of the renal pelvis and proximal ureter. Consider ascending urinary tract infection/pyelonephritis in the appropriate clinical setting. 2: No acute cardiopulmonary disease. * Continue Rocephin 1G Q24 hrs. * Urine culture is pending. * Follow blood culture, repeating cultures (2) Gram-negative bacteremia: Code(s): R78.81 - Bacteremia Status: Acute Assessment and Plan: ACTIVE--following cultures Fever on arrival. Bacteremia likely 2/2 acute pyelonephritis. 01/11 Reporting chills, no fever, epigastric and left flank pain, no dysuria, transient shortness of breath overnight. Leg pain 06/08 Blood cultures x2 growing 2 strains of GNB's --Repeat blood cultures today, 06/10 (3) Sepsis: Qualifiers: Acute renal failure type: unspecified Sepsis acute organ dysfunction status: with acute organ dysfunction Sepsis type: sepsis due to unspecified organism Severe sepsis acute organ dysfunction type: acute renal failure Severe sepsis shock status: without septic shock Qualified Code(s): A41.9 - Sepsis, unspecified organism; R65.20 - Severe sepsis without septic shock; N17.9 - Acute kidney failure, unspecified Code(s): A41.9 - Sepsis, unspecified organism Status: Acute Assessment and Plan: RESOLVING Fever 103 and BP 71/38 on admission, acute pyelonephritis and bacteremia. Met criteria for sepsis on admission --Fluids, antibiotics as noted (4) COPD exacerbation: Code(s): J44.1 - Chronic obstructive pulmonary disease with (acute) exacerbation Status: Acute Assessment and Plan: IMPROVING Started on Azithromycin and Rocephin in the ED Azithromycin changed to doxy Change duonebs to albuterol HFA prn Hasn't tolerated Breo. Start spiriva Guaifenesin Solu-Medrol, changed to prednisone 06/09-06/14 Not requiring supplemental oxygen. (5) JAYLEN (acute kidney injury): Code(s): N17.9 - Acute kidney failure, unspecified Status: Resolved Assessment and Plan: RESOLVED Creatinine 1.28 on admission. Now normalized, 0.88/16. IVF for hydration Follow BMP (6) Elevated brain natriuretic peptide (BNP) level: Code(s): R79.89 - Other specified abnormal findings of blood chemistry Status: Acute Assessment and Plan: 06/08 echo LVEF 60-65%, no WMA's, normal RV Lung sounds are clear patient appears to be dehydrated Monitor for fluid overload (7) Atrial fibrillation: Code(s): I48.91 - Unspecified atrial fibrillation Status: Chronic Assessment and Plan: Continue Eliquis and Sotalol (8) Diabetes type 2, controlled: Code(s): E11.9 - Type 2 diabetes mellitus without complications Status: Chronic Assessment and Plan: High-dose SSI due to steroids A.c. HS Diabetic diet (9) Hypertension: Code(s): I10 - Essential (primary) hypertension Status: Acute Assessment and Plan: Continue Cozaar (10) N&V (nausea and vomiting): Qualifiers: Vomiting type: unspecified Qualified Code(s): R11.2 - Nausea with vomiting, unspecified Code(s): R11.2 - Nausea with vomiting, unspecified Status: Acute Assessment and Plan: Emesis overnight, has epigastric abdominal pain --Stop Vicodin, change to tramadol prn. --Tums prn for abdominal pain --Zofran/Compazine prn for N/V (11) Back pain: Code(s): M54.9 - Dorsalgia, unspecified Status: Acute Assessment and Plan: Flank pain--change vicodin to tramadol with nausea/vomiting --Change flexeril to methocarbamol (12) Leg pain, right: Code(s): M79.604 - Pain in right leg Status: Acute Assessment and Plan: Right calf pain with bilateral LE edema. Had been on eliquis, hasn't missed a dose --LE venous dopplers Time Spent With Patient Time: 58 minutes Subjective Date/time seen: 06/10/25 10:40 Interval history: Reports chills overnight, no fever. WBC still normal Blood cultures 06/08 growing 2 strains of GNB's. Repeat blood cultures pending Having nausea and epigastric pain, mild left flank pain Review of Systems Review of Systems: 12 systems were reviewed and are negativ e except for as per HPI. All systems reviewed & are unremarkable except as noted in HPI and below Exam Narrative: General - Awake and alert. No acute distress Eyes - PERRLA, EOM intact ENT - No thrush, No erythema Neck - No noticeable or palpable swelling Lymph Nodes - No lymphadenopathy Cardiovascular - RRR no m/r/g, no JVD Lungs: Clear to auscultation, No wheezing, use of accessory muscles, no crackles Skin - Skin warm and dry, no wounds or rashes Abdomen - Normal bowel sounds, abdomen soft and mildly tender epigastric, and left upper abdomen Extremities - No edema, cyanosis or clubbing Musculoskeletal - 5/5 strength, normal range of motion, no swollen or erythematous joints. Neurological ? Alert and oriented x 3, CN 2-12 grossly intact. Psych: Normal mood and affect Objective Data Vital Signs Vital Signs: Vital Signs - 24 hr 06/09/25 08:17 06/09/25 08:23 06/09/25 10:00 Temperature Pulse Rate 88 86 83 Respiratory Rate 18 Blood Pressure Pulse Oximetry Oxygen Delivery Fraction of Inspired Oxygen 06/09/25 12:00 06/09/25 12:00 06/09/25 14:33 Temperature 98.4 F Pulse Rate 68 73 80 Respiratory Rate 20 18 Blood Pressure 129/72 Pulse Oximetry 99 Oxygen Delivery Fraction of Inspired Oxygen 06/09/25 20:00 06/09/25 22:13 06/09/25 22:22 Temperature 98.4 F Pulse Rate 77 78 Respiratory Rate 20 18 Blood Pressure 154/87 H Pulse Oximetry 99 Oxygen Delivery Room Air Fraction of Inspired Oxygen 06/09/25 22:25 06/09/25 22:27 06/10/25 06:00 Temperature 98.1 F Pulse Rate 78 78 Respiratory Rate 18 20 Blood Pressure 150/98 H Pulse Oximetry 100 98 Oxygen Delivery Room Air Fraction of Inspired Oxygen 21 Intake/Output Intake/Output: Intake & Output 06/07/25 06/08/25 06/09/25 06/10/25 23:59 23:59 23:59 23:59 Intake Total 1290 4230 1700 Output Total 20 1200 2 Balance 1270 3030 1698 Meds/Results Medications: Active Medications Generic Name Dose Route Start Last Admin Trade Name Freq PRN Reason Stop Dose Admin Acetaminophen 650 mg 06/08/25 17:35 06/09/25 05:30 Acetaminophen 325 Mg Tablet PO 650 mg Q4H PRN Administration Mild Pain (1-3) or Fever Hydrocodone Bitart/Acetaminophen 1 tab 06/08/25 17:35 06/09/25 21:18 Hydrocodone/Acetaminophen (*Crx) 5-325 Mg Tablet PO 1 tab Q4H PRN Administration Moderate Pain (4-6) Albuterol/Ipratropium 3 ml 06/08/25 20:00 06/10/25 02:02 Ipratropium 0.5 Mg/Albuterol Sulfate 2.5 Mg Ampul.Neb 3 Ml INHALATION 3 ml Q6HRT LANCE Administration Alendronate Sodium 70 mg 06/09/25 11:00 06/09/25 10:57 Alendronate Sodium 70 Mg Tablet PO 70 mg WEEKLY LANCE Administration Apixaban 5 mg 06/08/25 21:00 06/09/25 21:19 Apixaban 5 Mg Tablet PO 5 mg Q12HR LANCE Administration Bupropion HCl 150 mg 06/09/25 09:00 06/09/25 08:23 Bupropion Hcl Sr (12 Hr) 150 Mg Tab PO 150 mg DAILY LANCE Administration Clonazepam 0.25 mg 06/08/25 17:38 06/09/25 08:22 Clonazepam (*Crx) 0.25 Mg Tablet PO 0.25 mg TID PRN Administration anxiety Clopidogrel Bisulfate 75 mg 06/09/25 09:00 06/09/25 08:22 Clopidogrel Bisulfate 75 Mg Tablet PO 75 mg DAILY LANCE Administration Cyclobenzaprine HCl 10 mg 06/09/25 10:04 06/09/25 21:22 Cyclobenzaprine Hcl 10 Mg Tablet PO 10 mg Q8H PRN Administration Muscle Spasm Dextrose 12.5 gm 06/08/25 17:43 Dextrose 50% 25 Gm/50 Ml Syringe IV PUSH PRN PRN Hypoglycemia Protocol Docusate Sodium 100 mg 06/09/25 09:00 06/09/25 18:20 Docusate Sodium 100 Mg Capsule PO 100 mg BID LANCE Administration Doxycycline Hyclate 100 mg 06/08/25 21:00 06/09/25 21:18 Doxycycline Hyclate 100 Mg Tablet PO 100 mg Q12HR LANCE Administration Ezetimibe 10 mg 06/08/25 19:10 06/09/25 08:24 Ezetimibe 10 Mg Tablet BY MOUTH 10 mg DAILY LANCE Administration Gabapentin 300 mg 06/09/25 09:00 06/09/25 18:20 Gabapentin 300 Mg Capsule PO 300 mg TID LANCE Administration Glucagon 1 mg 06/08/25 17:43 Glucagon For Inj 1 Mg Vial IM PRN PRN Hypoglycemia Protocol Glucose 15 gm 06/08/25 17:43 Glucose Oral Gel 15 Gm Of Glucse In 37.5 Gm Tube PO PRN PRN Hypoglycemia Protocol Guaifenesin/Dextromethorphan 10 ml 06/08/25 21:00 06/10/25 05:49 Guaifenesin/Dextromethorphan 10 Ml Udc PO 10 ml Q4H LANCE Administration Ceftriaxone Sodium 1 gm/ 50 mls @ 100 mls/hr 06/09/25 09:00 06/09/25 08:54 Sodium Chloride IVPB Infused Q24H LANCE Infusion Sodium Chloride 1,000 mls @ 125 mls/hr 06/08/25 17:40 06/10/25 01:56 Normal Saline Iv IV CONT 125 mls/hr .Q8H LANCE Administration Dextrose 1,000 mls @ 100 mls/hr 06/08/25 17:43 Dextrose 5% 1,000 Ml IVPB PRN PRN Hypoglycemia Protocol Insulin Aspart 2 - 4 units 06/08/25 21:00 06/09/25 21:22 Insulin Aspart (*Bkc) 100 Units/Ml SUB-Q 2 units HS LANCE Administration Protocol Insulin Aspart 4 - 8 units 06/09/25 08:00 06/09/25 18:16 Insulin Aspart (*Bkc) 100 Units/Ml SUB-Q Not Given TIDWM LANCE Protocol Loratadine 10 mg 06/09/25 09:00 06/09/25 08:23 Loratadine 10 Mg Tablet PO 10 mg QAM LANCE Administration Losartan Potassium 100 mg 06/09/25 09:00 06/09/25 08:22 Losartan Potassium 100 Mg Tablet PO 100 mg DAILY LANCE Administration Montelukast Sodium 10 mg 06/08/25 18:00 06/09/25 18:23 Montelukast Sodium 10 Mg Tablet PO 10 mg QPM LANCE Administration Morphine Sulfate 2 mg 06/08/25 17:35 Morphine Sulfate (*Crx) 2 Mg/Ml Inj IV PUSH Q4H PRN Pain Rated 7-10 Nicotine 1 patch 06/09/25 09:00 06/09/25 08:44 Nicotine (*Pbkc) 14 Mg Patch TRANSDERM 1 patch DAILY LANCE Administration Ondansetron HCl 4 mg 06/08/25 09:12 Ondansetron Inj 4 Mg/2 Ml Vial IV PUSH Q4H PRN Nausea Pantoprazole Sodium 40 mg 06/09/25 09:00 06/09/25 08:22 Pantoprazole 40 Mg Tablet PO 40 mg QAM LANCE Administration Perflutren Lipid Microsphere 0 ml 06/08/25 17:47 Perflutren Lipid Microspheres 1.5 Ml Vial Diluted To 10 Ml Total Volume IV PUSH 06/11/25 17:47 ONCE PRN adequate visualization Protocol Polyethylene Glycol 17 gm 06/09/25 08:39 06/09/25 08:45 Polyethylene Glycol 3350 17 Gm Powd.Pack PO 17 gm QAM PRN Administration Constipation Prednisone 40 mg 06/09/25 08:00 06/09/25 08:22 Prednisone 20 Mg Tablet PO 06/14/25 07:59 40 mg DAILY@0800 LANCE Administration Sotalol HCl 120 mg 06/09/25 09:00 06/09/25 08:23 Sotalol Hcl 40 Mg Tablet PO 120 mg DAILY LANCE Administration Radiology Results: ITS Impressions Chest X-Ray 06/08/25 06:51 IMPRESSION: 1: NO ACUTE CARDIOPULMONARY DISEASE. Chest/Abdomen/Pelvis CTA 06/08/25 08:02 IMPRESSION: 1. Moderate left perinephric fluid/stranding with mild hydronephrosis. There is mild urothelial thickening of the renal pelvis and proximal ureter. Consider ascending urinary tract infection/pyelonephritis in the appropriate clinical setting. 2: No acute cardiopulmonary disease. Labs Labs: Laboratory Results - last 24 hr 06/09/25 06/09/25 06/09/25 08:19 11:41 17:01 POC Capillary Glucose 226 H 181 H 186 H 06/09/25 20:00 POC Capillary Glucose 232 H Quality VTE Prophylaxis VTE prophylaxis: pharmacologic ordered Hospitalist MIPS Advance Care Plan I have confirmed that the patient's Advanced Care Plan is present, code status is documented, or surrogate decision maker is listed in patient medical record.: Yes Medication Reconciliation I have utilized all available resources to obtain, update and review the patient s current medications (includes all prescriptions, OTC, herbals, cannabis, and nutritional supplements).: Yes
[2025-06-10 08:38] LABS: Hematocrit 33.9 % (37.0-47.0); Hemoglobin 11.1 g/dL (12.0-15.0); Immature Granulocyte Percent A 0.7 % (0-0.5); Lymphocytes Absolute Auto 1.29 K/mm3 (0.9-3.2); Mean Corpuscular HGB Conc 32.7 g/dl (32-36); Mean Corpuscular Hemoglobin 29.5 pg (26-34); Mean Corpuscular Volume 90.2 fl (80-100); Nucleated Red Blood Cells Absolute Auto 0.000 K/mm3 (0.0-0.012); Nucleated Red Blood Cells Perc 0.0 % (0.0-0.2); Platelet Count Result 160 k/mm3 (150-375); Red Blood Count 3.76 M/mm3 (4.2-5.4); White Blood Count 7.5 K/mm3 (4.5-10.0)
[2025-06-10 09:01] LABS: Anion Gap 7 mmol/L (4-12); Blood Urea Nitrogen 15 mg/dL (7-17); CRP 4.2 mg/dL (<1.0); Calcium 9.0 mg/dL (8.4-10.2); Carbon Dioxide 22 mmol/L (22-30); Chloride 111 mmol/L (98-107); Estimated CRCL calculation 58 ml/min; Estimated Glomerular Filt Rate > 60; Glucose 107 mg/dL (65-110); Potassium 3.8 mmol/L (3.4-5.0); Sodium 140 mmol/L (137-145)
[2025-06-10] MEDS: PANTOPRAZOLE 40 MG TABLET PO (09:04)
[2025-06-10] MEDS: DOCUSATE SODIUM 100 MG CAPSULE PO ×2 (09:04→16:42)
[2025-06-10] MEDS: DOXYCYCLINE HYCLATE 100 MG TABLET PO ×2 (09:04→21:04)
[2025-06-10] MEDS: CLOPIDOGREL BISULFATE 75 MG TABLET PO (09:04)
[2025-06-10] MEDS: LORATADINE 10 MG TABLET PO (09:04)
[2025-06-10] MEDS: EZETIMIBE 10 MG TABLET BY MOUTH (09:04)
[2025-06-10] MEDS: buPROPion HCL SR (12 HR) 150 MG TAB PO (09:04)
[2025-06-10] MEDS: LOSARTAN POTASSIUM 100 MG TABLET PO (09:04)
[2025-06-10] MEDS: APIXABAN 5 MG TABLET PO ×2 (09:05→21:05)
[2025-06-10] MEDS: cefTRIAXone 1 GM in SODIUM CHLORIDE 0.9% IV 50 ML 100 ML IVPB (09:05)
[2025-06-10] MEDS: GABAPENTIN 300 MG CAPSULE PO ×3 (09:05→16:41)
[2025-06-10] MEDS: NICOTINE (*PBKC) 14 MG PATCH 1 PATCH TRANSDERM (09:06)
[2025-06-10] MEDS: ONDANSETRON INJ 4 MG/2 ML VIAL IV PUSH ×2 (11:11→21:04)
[2025-06-10] MEDS: PROCHLORPERAZINE EDISYLATE 10 MG/2 ML VIAL IV PUSH (13:06)
[2025-06-10] MEDS: CALCIUM CARBONATE (TUMS) 500 MG (200 MG ELEMENTAL) PO (13:06)
[2025-06-10] MEDS: MORPHINE SULFATE (*CRX) 2 MG/ML INJ IV PUSH ×2 (15:16→21:44)
[2025-06-10] MEDS: MONTELUKAST SODIUM 10 MG TABLET PO (16:41)
[2025-06-11] MEDS: MORPHINE SULFATE (*CRX) 2 MG/ML INJ IV PUSH (05:30)
[2025-06-11 06:00] VITALS: BP 140/90; PULSE 97; RESP 20; TEMP 37; O2SAT 99
[2025-06-11] MEDS: SODIUM CHLORIDE 0.9% IV 1,000 ML 125 ML IV CONT ×2 (06:34→16:33)
[2025-06-11] MEDS: UMECLIDINIUM BROMIDE 62.5 MCG ELLIPTA 1 PUFF INHALATION (07:41)
[2025-06-11 07:45] VITALS: PULSE 68; RESP 20; O2SAT 95
--- NOTE | 2025-06-11 08:17 | P.PNIM_ITS ---
Progress Note: A&P Assessment and Plan (1) Acute pyelonephritis: Code(s): N10 - Acute pyelonephritis Status: Acute Assessment and Plan: ACTIVE, IMPROVING -Fever 103.1 on admission, bacteremia 06/08 CT CAP 1. Moderate left perinephric fluid/stranding with mild hydronephrosis. There is mild urothelial thickening of the renal pelvis and proximal ureter. Consider ascending urinary tract infection/pyelonephritis in the appropriate clinical setting. 2: No acute cardiopulmonary disease. -Blood cultures 06/08 12/17 positive for E. coli. - urine culture still pending - per discussion with ID pharmacist, will stop Rocephin and transition to Levaquin per sensitivities. (2) Gram-negative bacteremia: Code(s): R78.81 - Bacteremia Status: Acute Assessment and Plan: - Bacteremia likely / acute pyelonephritis. 01/11 Reporting chills, no fever, epigastric and left flank pain, no dysuria, transient shortness of breath overnight. Leg pain - transitioned to Levaquin as above - follow-up repeat cultures (3) Sepsis: Qualifiers: Acute renal failure type: unspecified Sepsis acute organ dysfunction status: with acute organ dysfunction Sepsis type: sepsis due to unspecified organism Severe sepsis acute organ dysfunction type: acute renal failure Severe sepsis shock status: without septic shock Qualified Code(s): A41.9 - Sepsis, unspecified organism; R65.20 - Severe sepsis without septic shock; N17.9 - Acute kidney failure, unspecified Code(s): A41.9 - Sepsis, unspecified organism Status: Acute Assessment and Plan: RESOLVING Fever 103 and BP 71/38 on admission, acute pyelonephritis and bacteremia. Met criteria for sepsis on admission - now afebrile, no leukocytosis, BP stable - received fluids and IV abx - transitioned to PO Levaquin (4) COPD exacerbation: Code(s): J44.1 - Chronic obstructive pulmonary disease with (acute) exacerbation Status: Acute Assessment and Plan: -IMPROVING -Started on Azithromycin and Rocephin in the ED -Azithromycin changed to doxy, stop doxy now that patient is on Levaquin -Change duonebs to albuterol HFA prn -Hasn't tolerated Breo. Start spiriva -Guaifenesin -Solu-Medrol, changed to prednisone 06/09-06/14 -Not requiring supplemental oxygen. (5) N&V (nausea and vomiting): Qualifiers: Vomiting type: unspecified Qualified Code(s): R11.2 - Nausea with vomiting, unspecified Code(s): R11.2 - Nausea with vomiting, unspecified Status: Acute Assessment and Plan: -Emesis overnight, has epigastric abdominal pain -Stop Vicodin, change to tramadol prn. -Tums prn for abdominal pain -Zofran/Compazine prn for N/V (6) JAYLEN (acute kidney injury): Code(s): N17.9 - Acute kidney failure, unspecified Status: Resolved Assessment and Plan: -RESOLVED -Creatinine 1.28 on admission. -Now normalized, 0.88/16. -IVF for hydration -monitor BMP (7) Elevated brain natriuretic peptide (BNP) level: Code(s): R79.89 - Other specified abnormal findings of blood chemistry Status: Acute Assessment and Plan: -06/08 echo LVEF 60-65%, no WMA's, normal RV -Lung sounds are clear patient appears to be dehydrated -Monitor for fluid overload (8) Atrial fibrillation: Code(s): I48.91 - Unspecified atrial fibrillation Status: Chronic Assessment and Plan: -Continue Eliquis and Sotalol (9) Diabetes type 2, controlled: Code(s): E11.9 - Type 2 diabetes mellitus without complications Status: Chronic Assessment and Plan: -High-dose SSI due to steroids - quan Brown HS -Diabetic diet (10) Hypertension: Code(s): I10 - Essential (primary) hypertension Status: Acute Assessment and Plan: -Continue Cozaar (11) Back pain: Code(s): M54.9 - Dorsalgia, unspecified Status: Acute Assessment and Plan: -Flank pain--change vicodin to tramadol with nausea/vomiting -Change flexeril to methocarbamol (12) Leg pain, right: Code(s): M79.604 - Pain in right leg Status: Acute Assessment and Plan: -Right calf pain with bilateral LE edema. Had been on eliquis, hasn't missed a dose --LE venous dopplers negative Subjective Date/time seen: 06/11/25 08:17 Interval history: Patient seen and examined at bedside. Denies urinary symptoms or flank pain. Having epigastric discomfort and nausea. Denies blood in stool, melena. Review of Systems Review of Systems: All systems reviewed & are unremarkable except as noted in HPI and below Exam Narrative: General: NAD Eyes: EOMI ENT: neck supple Cardiovascular: Regular rate and rhythm Respiratory: Clear to auscultation, respirations even and unlabored on RA Gastrointestinal: Soft, non tender, mild epigastric tenderness on exam Genitourinary: no suprapubic tenderness Musculoskeletal: No edema Skin: warm, dry Neuro: Alert. Psych: Mood appropriate Objective Data Vital Signs Vital Signs: Vital Signs - 24 hr 06/10/25 08:43 06/10/25 08:43 06/10/25 08:53 Temperature Pulse Rate 95 70 Respiratory Rate 24 H 24 H Blood Pressure Pulse Oximetry 96 Oxygen Delivery Room Air Fraction of Inspired Oxygen 21 06/10/25 09:00 06/10/25 09:20 06/10/25 14:00 Temperature 98.0 F Pulse Rate 89 60 89 Respiratory Rate 20 Blood Pressure 187/96 H Pulse Oximetry 99 99 Oxygen Delivery Room Air Fraction of Inspired Oxygen 06/10/25 20:00 06/10/25 22:17 06/10/25 22:24 Temperature 98.3 F Pulse Rate 69 Respiratory Rate 20 Blood Pressure 139/69 Pulse Oximetry 90 100 Oxygen Delivery Room Air Room Air Fraction of Inspired Oxygen 21 06/11/25 06:00 06/11/25 07:45 06/11/25 07:45 Temperature 98.6 F Pulse Rate 97 68 Respiratory Rate 20 20 Blood Pressure 140/90 Pulse Oximetry 99 95 Oxygen Delivery Room Air Fraction of Inspired Oxygen 21 Intake/Output Intake/Output: Intake & Output 06/08/25 06/09/25 06/10/25 06/11/25 23:59 23:59 23:59 23:59 Intake Total 1290 4230 4848 500 Output Total 20 1200 2 Balance 1270 3030 4846 500 Meds/Results Medications: Active Medications Generic Name Dose Route Start Last Admin Trade Name Freq PRN Reason Stop Dose Admin Acetaminophen 650 mg 06/08/25 17:35 06/09/25 05:30 Acetaminophen 325 Mg Tablet PO 650 mg Q4H PRN Administration Mild Pain (1-3) or Fever Albuterol 2 puff 06/10/25 11:17 Albuterol Sulfate (*Sp) Aerosol 1 Puff INHALATION Q6HRT PRN Shortness Of Breath Alendronate Sodium 70 mg 06/09/25 11:00 06/09/25 10:57 Alendronate Sodium 70 Mg Tablet PO 70 mg WEEKLY LANCE Administration Apixaban 5 mg 06/08/25 21:00 06/10/25 21:05 Apixaban 5 Mg Tablet PO 5 mg Q12HR LANCE Administration Bupropion HCl 150 mg 06/09/25 09:00 06/10/25 09:04 Bupropion Hcl Sr (12 Hr) 150 Mg Tab PO 150 mg DAILY LANCE Administration Calcium Carbonate 200 mg 06/10/25 10:51 06/10/25 13:06 Calcium Carbonate (Tums) 500 Mg (200 Mg Elemental) PO 200 mg Q6H PRN Administration Indigestion Clonazepam 0.25 mg 06/08/25 17:38 06/09/25 08:22 Clonazepam (*Crx) 0.25 Mg Tablet PO 0.25 mg TID PRN Administration anxiety Clopidogrel Bisulfate 75 mg 06/09/25 09:00 06/10/25 09:04 Clopidogrel Bisulfate 75 Mg Tablet PO 75 mg DAILY LANCE Administration Dextrose 12.5 gm 06/08/25 17:43 Dextrose 50% 25 Gm/50 Ml Syringe IV PUSH PRN PRN Hypoglycemia Protocol Docusate Sodium 100 mg 06/09/25 09:00 06/10/25 16:42 Docusate Sodium 100 Mg Capsule PO 100 mg BID LANCE Administration Doxycycline Hyclate 100 mg 06/08/25 21:00 06/10/25 21:04 Doxycycline Hyclate 100 Mg Tablet PO 100 mg Q12HR LANCE Administration Ezetimibe 10 mg 06/08/25 19:10 06/10/25 09:04 Ezetimibe 10 Mg Tablet BY MOUTH 10 mg DAILY LANCE Administration Gabapentin 300 mg 06/09/25 09:00 06/10/25 16:41 Gabapentin 300 Mg Capsule PO 300 mg TID LANCE Administration Glucagon 1 mg 06/08/25 17:43 Glucagon For Inj 1 Mg Vial IM PRN PRN Hypoglycemia Protocol Glucose 15 gm 06/08/25 17:43 Glucose Oral Gel 15 Gm Of Glucse In 37.5 Gm Tube PO PRN PRN Hypoglycemia Protocol Guaifenesin/Dextromethorphan 10 ml 06/08/25 21:00 06/11/25 05:32 Guaifenesin/Dextromethorphan 10 Ml Udc PO Not Given Q4H LANCE Ceftriaxone Sodium 1 gm/ 50 mls @ 100 mls/hr 06/09/25 09:00 06/10/25 09:05 Sodium Chloride IVPB 100 mls/hr Q24H LANCE Administration Sodium Chloride 1,000 mls @ 125 mls/hr 06/08/25 17:40 06/11/25 06:34 Normal Saline Iv IV CONT 125 mls/hr .Q8H LANCE Administration Dextrose 1,000 mls @ 100 mls/hr 06/08/25 17:43 Dextrose 5% 1,000 Ml IVPB PRN PRN Hypoglycemia Protocol Insulin Aspart 2 - 4 units 06/08/25 21:00 06/11/25 05:31 Insulin Aspart (*Bkc) 100 Units/Ml SUB-Q Not Given HS LANCE Protocol Insulin Aspart 4 - 8 units 06/09/25 08:00 06/10/25 17:51 Insulin Aspart (*Bkc) 100 Units/Ml SUB-Q Not Given TIDWM LANCE Protocol Loratadine 10 mg 06/09/25 09:00 06/10/25 09:04 Loratadine 10 Mg Tablet PO 10 mg QAM LANCE Administration Losartan Potassium 100 mg 06/09/25 09:00 06/10/25 09:04 Losartan Potassium 100 Mg Tablet PO 100 mg DAILY LANCE Administration Methocarbamol 500 mg 06/10/25 11:07 Methocarbamol 500 Mg Tablet PO TID PRN Spasms Montelukast Sodium 10 mg 06/08/25 18:00 06/10/25 16:41 Montelukast Sodium 10 Mg Tablet PO 10 mg QPM LANCE Administration Morphine Sulfate 2 mg 06/08/25 17:35 06/11/25 05:30 Morphine Sulfate (*Crx) 2 Mg/Ml Inj IV PUSH 2 mg Q4H PRN Administration Pain Rated 7-10 Nicotine 1 patch 06/09/25 09:00 06/10/25 09:06 Nicotine (*Pbkc) 14 Mg Patch TRANSDERM 1 patch DAILY LANCE Administration Ondansetron HCl 4 mg 06/08/25 09:12 06/10/25 21:04 Ondansetron Inj 4 Mg/2 Ml Vial IV PUSH 4 mg Q4H PRN Administration Nausea Pantoprazole Sodium 40 mg 06/09/25 09:00 06/10/25 09:04 Pantoprazole 40 Mg Tablet PO 40 mg QAM LANCE Administration Perflutren Lipid Microsphere 0 ml 06/08/25 17:47 Perflutren Lipid Microspheres 1.5 Ml Vial Diluted To 10 Ml Total Volume IV PUSH 06/11/25 17:47 ONCE PRN adequate visualization Protocol Polyethylene Glycol 17 gm 06/11/25 09:00 Polyethylene Glycol 3350 17 Gm Powd.Pack PO QAM LANCE Prednisone 40 mg 06/09/25 08:00 06/10/25 09:04 Prednisone 20 Mg Tablet PO 06/14/25 07:59 40 mg DAILY@0800 LANCE Administration Prochlorperazine Edisylate 10 mg 06/10/25 10:47 06/10/25 13:06 Prochlorperazine Edisylate 10 Mg/2 Ml Vial IV PUSH 10 mg Q6H PRN Administration Nausea And Vomiting Sotalol HCl 120 mg 06/10/25 09:00 06/10/25 21:04 Sotalol Hcl 40 Mg Tablet PO 120 mg Q12HR LANCE Administration Tramadol HCl 50 mg 06/10/25 11:06 Tramadol Hcl (*Crx) 50 Mg Tablet PO Q4H PRN Pain Rated 4-6 Umeclidinium [place] 1 puff 06/10/25 12:00 06/11/25 07:41 Umeclidinium [place] 62.5 Mcg Ellipta INHALATION 1 puff DAILYRT LANCE Administration Radiology Results: ITS Impressions Chest X-Ray 06/08/25 06:51 IMPRESSION: 1: NO ACUTE CARDIOPULMONARY DISEASE. Chest/Abdomen/Pelvis CTA 06/08/25 08:02 IMPRESSION: 1. Moderate left perinephric fluid/stranding with mild hydronephrosis. There is mild urothelial thickening of the renal pelvis and proximal ureter. Consider ascending urinary tract infection/pyelonephritis in the appropriate clinical setting. 2: No acute cardiopulmonary disease. Venous Doppler Study 06/10/25 20:49 IMPRESSION: Patent bilateral lower extremity veins. No evidence of deep venous thrombosis. Labs Labs: Laboratory Results - last 24 hr 06/10/25 06/10/25 06/10/25 08:10 08:28 08:30 WBC 7.5 RBC 3.76 L Hgb 11.1 L Hct 33.9 L MCV 90.2 MCH 29.5 MCHC 32.7 RDW 13.2 Plt Count 160 MPV 9.8 Immature Gran % (Auto) 0.7 H Neut % (Auto) 73.6 H Lymph % (Auto) 17.1 L [place] % (Auto) 7.8 Eos % (Auto) 0.5 Baso % (Auto) 0.3 Lymph # (Auto) 1.29 Barton # (Auto) 0.6 Eos # (Auto) 0.0 Baso # (Auto) 0.0 Abs Immat Gran (auto) 0.05 H Absolute Neuts (auto) 5.6 Absolute Nucleated RBC 0.000 Nucleated RBC % 0.0 ESR 86 H Sodium 140 Potassium 3.8 Chloride 111 H Carbon Dioxide 22 Anion Gap 7 BUN 15 Creatinine 0.90 Estim Creat Clear Calc 58 Estimated GFR > 60 Glucose 107 POC Capillary Glucose 105 Calcium 9.0 C-Reactive Protein 4.2 H 06/10/25 06/10/25 12:00 16:52 WBC RBC Hgb Hct MCV MCH MCHC RDW Plt Count MPV Immature Gran % (Auto) Neut % (Auto) Lymph % (Auto) [place] % (Auto) Eos % (Auto) Baso % (Auto) Lymph # (Auto) [place] # (Auto) Eos # (Auto) Baso # (Auto) Abs Immat Gran (auto) Absolute Neuts (auto) Absolute Nucleated RBC Nucleated RBC % ESR Sodium Potassium Chloride Carbon Dioxide Anion Gap BUN Creatinine Estim Creat Clear Calc Estimated GFR Glucose POC Capillary Glucose 158 H 187 H Calcium C-Reactive Protein Quality VTE Prophylaxis VTE prophylaxis: pharmacologic ordered
[2025-06-11] MEDS: NICOTINE (*PBKC) 14 MG PATCH 1 PATCH TRANSDERM (09:13)
[2025-06-11] MEDS: GABAPENTIN 300 MG CAPSULE PO ×3 (09:14→16:32)
[2025-06-11] MEDS: DOXYCYCLINE HYCLATE 100 MG TABLET PO (09:14)
[2025-06-11] MEDS: EZETIMIBE 10 MG TABLET BY MOUTH (09:14)
[2025-06-11] MEDS: LOSARTAN POTASSIUM 100 MG TABLET PO (09:14)
[2025-06-11 09:15] VITALS: PULSE 108; O2SAT 96
[2025-06-11] MEDS: PANTOPRAZOLE 40 MG TABLET PO (09:16)
[2025-06-11] MEDS: CLOPIDOGREL BISULFATE 75 MG TABLET PO (09:17)
[2025-06-11] MEDS: DOCUSATE SODIUM 100 MG CAPSULE PO ×2 (09:17→16:33)
[2025-06-11] MEDS: LORATADINE 10 MG TABLET PO (09:17)
[2025-06-11] MEDS: APIXABAN 5 MG TABLET PO ×2 (09:17→20:47)
[2025-06-11] MEDS: buPROPion HCL SR (12 HR) 150 MG TAB PO (09:17)
[2025-06-11] MEDS: cefTRIAXone 1 GM in SODIUM CHLORIDE 0.9% IV 50 ML 100 ML IVPB (09:18)
[2025-06-11] MEDS: clonazePAM (*CRX) 0.25 MG TABLET PO (09:26)
[2025-06-11] MEDS: PROCHLORPERAZINE EDISYLATE 10 MG/2 ML VIAL IV PUSH (09:26)
[2025-06-11] MEDS: INSULIN ASPART (*BKC) 100 UNITS/ML SUB-Q ×2 (13:08→17:16)
[2025-06-11 14:00] VITALS: BP 115/70; PULSE 105; RESP 18; TEMP 37.1; O2SAT 96
[2025-06-11] MEDS: MONTELUKAST SODIUM 10 MG TABLET PO (17:16)
[2025-06-11] MEDS: ACETAMINOPHEN 325 MG TABLET 650 MG PO (17:20)
[2025-06-11 22:00] VITALS: BP 115/66; PULSE 68; RESP 18; TEMP 37.1; O2SAT 97
[2025-06-12] MEDS: ACETAMINOPHEN 325 MG TABLET 650 MG PO (01:46)
[2025-06-12 06:00] VITALS: BP 123/79; PULSE 63; RESP 20; TEMP 36.4; O2SAT 98
[2025-06-12 06:18] LABS: Hematocrit 38.0 % (37.0-47.0); Hemoglobin 12.9 g/dL (12.0-15.0); Immature Granulocyte Percent A 2.1 % (0-0.5); Lymphocytes Absolute Auto 1.89 K/mm3 (0.9-3.2); Mean Corpuscular HGB Conc 33.9 g/dl (32-36); Mean Corpuscular Hemoglobin 29.1 pg (26-34); Mean Corpuscular Volume 85.8 fl (80-100); Nucleated Red Blood Cells Absolute Auto 0.000 K/mm3 (0.0-0.012); Nucleated Red Blood Cells Perc 0.0 % (0.0-0.2); Platelet Count Result 201 k/mm3 (150-375); Red Blood Count 4.43 M/mm3 (4.2-5.4); White Blood Count 7.1 K/mm3 (4.5-10.0)
[2025-06-12 06:36] LABS: Albumin Level 3.4 g/dL (3.5-5.1); Alkaline Phosphatase 55 U/L (38-126); Anion Gap 7 mmol/L (4-12); Bilirubin,Total 0.4 mg/dL (0.2-1.3); Blood Urea Nitrogen 26 mg/dL (7-17); Calcium 8.5 mg/dL (8.4-10.2); Carbon Dioxide 23 mmol/L (22-30); Chloride 102 mmol/L (98-107); Estimated CRCL calculation 46 ml/min; Estimated Glomerular Filt Rate 51; Glucose 109 mg/dL (65-110); Lipase 77 U/L (23-300); Potassium 3.2 mmol/L (3.4-5.0); Sodium 132 mmol/L (137-145); Total Protein 6.6 g/dL (6.3-8.2)
[2025-06-12 06:48] LABS: Alanine Aminotransferase 13 U/L (6-35); Aspartate Amino Transferase 21 U/L (14-36)
[2025-06-12] MEDS: UMECLIDINIUM BROMIDE 62.5 MCG ELLIPTA 1 PUFF INHALATION (08:00)
[2025-06-12 08:01] VITALS: PULSE 66; RESP 20; O2SAT 100
[2025-06-12 08:40] VITALS: PULSE 60
[2025-06-12] MEDS: APIXABAN 5 MG TABLET PO (08:40)
[2025-06-12] MEDS: buPROPion HCL SR (12 HR) 150 MG TAB PO (08:41)
[2025-06-12] MEDS: LORATADINE 10 MG TABLET PO (08:41)
[2025-06-12] MEDS: LOSARTAN POTASSIUM 100 MG TABLET PO (08:41)
[2025-06-12] MEDS: GABAPENTIN 300 MG CAPSULE PO (08:41)
[2025-06-12] MEDS: PANTOPRAZOLE 40 MG TABLET PO (08:42)
[2025-06-12] MEDS: EZETIMIBE 10 MG TABLET BY MOUTH (08:42)
[2025-06-12] MEDS: NICOTINE (*PBKC) 14 MG PATCH 1 PATCH TRANSDERM (08:42)
[2025-06-12] MEDS: CLOPIDOGREL BISULFATE 75 MG TABLET PO (08:42)
[2025-06-12] MEDS: DOCUSATE SODIUM 100 MG CAPSULE PO (08:42)
[2025-06-12] MEDS: POTASSIUM CHLORIDE 20 MEQ ER TABLET 40 MEQ PO (08:47)
[2025-06-12] MEDS: clonazePAM (*CRX) 0.25 MG TABLET PO (08:49)
[2025-06-12] MEDS: HYDROcodone/acetaminophen (*CRX) 7.5-325 MG TABLET 1 TAB PO (09:58)
--- NOTE | 2025-06-12 10:15 | P.DS_ITS ---
DS: Admitting Diagnosis Discharge Date 06/12/2025 Admitting Diagnosis -acute pyelonephritis -sepsis -COPD exacerbation - nausea/vomiting -JAYLEN - elevated BNP - T2DM - hypertension -back pain DS: Discharge Diagnosis Discharge Diagnosis (1) Acute pyelonephritis: Code(s): N10 - Acute pyelonephritis Status: Acute (2) Gram-negative bacteremia: Code(s): R78.81 - Bacteremia Status: Acute (3) Sepsis: Qualifiers: Acute renal failure type: unspecified Sepsis acute organ dysfunction status: with acute organ dysfunction Sepsis type: sepsis due to unspecified organism Severe sepsis acute organ dysfunction type: acute renal failure Severe sepsis shock status: without septic shock Qualified Code(s): A41.9 - Sepsis, unspecified organism; R65.20 - Severe sepsis without septic shock; N17.9 - Acute kidney failure, unspecified Code(s): A41.9 - Sepsis, unspecified organism Status: Acute (4) COPD exacerbation: Code(s): J44.1 - Chronic obstructive pulmonary disease with (acute) exacerbation Status: Acute (5) N&V (nausea and vomiting): Qualifiers: Vomiting type: unspecified Qualified Code(s): R11.2 - Nausea with vomiting, unspecified Code(s): R11.2 - Nausea with vomiting, unspecified Status: Acute (6) JAYLEN (acute kidney injury): Code(s): N17.9 - Acute kidney failure, unspecified Status: Resolved (7) Elevated brain natriuretic peptide (BNP) level: Code(s): R79.89 - Other specified abnormal findings of blood chemistry Status: Acute (8) Atrial fibrillation: Code(s): I48.91 - Unspecified atrial fibrillation Status: Chronic (9) Diabetes type 2, controlled: Code(s): E11.9 - Type 2 diabetes mellitus without complications Status: Chronic (10) Hypertension: Code(s): I10 - Essential (primary) hypertension Status: Acute (11) Back pain: Code(s): M54.9 - Dorsalgia, unspecified Status: Acute (12) Leg pain, right: Code(s): M79.604 - Pain in right leg Status: Acute DS: Summary Hospital Course Reason for hospitalization: - acute pyelonephritis - sepsis Hospital Course: Patient is a 64-year-old female past medical history of diabetes type 2, hypertension, bladder cancer, CAD, bipolar, CATHERINE who presented to the hospital with shortness of breath, myalgias fever and chills. Also endorsed flank and bladder pain. In ED, lab work showed BUN of 22, creatinine 1.28, GFR 42, BNP of 444, UA with 2+ leukocyte esterase, 3-5 rbc's, over 100 wbc's and WBC clumps are present, and no epithelial cells present. Chest x-ray showed no acute process. CTA chest abdomen pelvis showed no PE,Moderate left perinephric fluid/stranding with mild hydronephrosis. There is mild urothelial thickening of the renal pelvis and proximal ureter. She met severe sepsis criteria with fever, hypotension and JAYLEN. She received IV fluids and was started on IV Rocephin with improvement. She was admitted for further management. While admitted, patient had urine and blood cultures positive for E. Coli. She received several doses of IV antibiotics with continued improvement of her symptoms. Repeat blood cultures were obtained and negative on discharge. She was transitioned to PO Levaquin on discharge per sensitivities and discussion with ID pharmacist. On discharge, patient was afebrile without leukocytosis and hemodynamically stable. Sepsis was resolved on discharge. Patient also had concerns for COPD exacerbation on admission. She was treated with doxycycline, DuoNebs and a prednisone burst. Her wheezing resolved on discharge and patient was without dyspnea. She was not hypoxic. She was encouraged to continue her home inhalers. Patient also noted to have JAYLEN. Cr 1.28 on admission with her baseline close to 0.8. Cr was improved on discharge with IV fluids. On day of discharge, potassium 3.2. Patient received K+ 40 meq and ordered BMP in 3 days to be completed as outpatient. Patient also had nausea and vomiting likely related to pyelonephritis and sepsis. She received IV antiemetics and was tolerating a regular diet on discharge. Plan to continue home medications for atrial fibrillation, T2DM, hypertension. Continue home pain regimen. Patient was discharged home in stable condition. She was encouraged to follow- up with her PCP 5-7 days. Strict return precautions discussed with patient discharge. Time Spent with Patient Time attestation: Total time spent providing and/or coordinating discharge services: Time spent: Greater than 30 minutes Exam Narrative: General: NAD Eyes: EOMI ENT: neck supple Cardiovascular: Regular rate and rhythm Respiratory: Clear to auscultation, respirations even and unlabored on RA Gastrointestinal: Soft, non tender Genitourinary: no suprapubic tenderness Musculoskeletal: No edema Skin: warm, dry Neuro: Alert. Psych: Mood appropriate DS: Data Data Completed and Pending Labs on day of discharge: Labs from last 24 hours 06/12/25 06/12/25 06/11/25 08:10 06:05 22:09 WBC 7.1 RBC 4.43 Hgb 12.9 Hct 38.0 MCV 85.8 MCH 29.1 MCHC 33.9 RDW 12.7 Plt Count 201 MPV 9.7 Immature Gran % (Auto) 2.1 H Neut % (Auto) 57.5 Lymph % (Auto) 26.6 [place] % (Auto) 12.7 H Eos % (Auto) 0.7 Baso % (Auto) 0.4 Lymph # (Auto) 1.89 [place] # (Auto) 0.9 H Eos # (Auto) 0.1 Baso # (Auto) 0.0 Abs Immat Gran (auto) 0.15 H Absolute Neuts (auto) 4.1 Absolute Nucleated RBC 0.000 Nucleated RBC % 0.0 Sodium 132 L Potassium 3.2 L Chloride 102 Carbon Dioxide 23 Anion Gap 7 BUN 26 H D Creatinine 1.09 H Estim Creat Clear Calc 46 Estimated GFR 51 L Glucose 109 POC Capillary Glucose 114 H 114 H Calcium 8.5 Total Bilirubin 0.4 AST 21 ALT 13 Alkaline Phosphatase 55 Total Protein 6.6 Albumin 3.4 L Lipase 77 06/11/25 06/11/25 06/10/25 17:00 11:54 21:23 WBC RBC Hgb Hct MCV MCH MCHC RDW Plt Count MPV Immature Gran % (Auto) Neut % (Auto) Lymph % (Auto) [place] % (Auto) Eos % (Auto) Baso % (Auto) Lymph # (Auto) [place] # (Auto) Eos # (Auto) Baso # (Auto) Abs Immat Gran (auto) Absolute Neuts (auto) Absolute Nucleated RBC Nucleated RBC % Sodium Potassium Chloride Carbon Dioxide Anion Gap BUN Creatinine Estim Creat Clear Calc Estimated GFR Glucose POC Capillary Glucose 202 H 209 H 149 H Calcium Total Bilirubin AST ALT Alkaline Phosphatase Total Protein Albumin Lipase Preliminary micro results at discharge 06/08/25 08:19 - Preliminary Unspecified Urine Gram negative bacilli isolated 06/10/25 08:28 Blood Culture - Preliminary Blood 06/10/25 08:30 Blood Culture - Preliminary Blood Discharge Plan Discharge Attending physician on discharge: Juan Centeno Consulting providers: Roberta Concepcion; Verena Humphrey Discharging Clinician: Verena Humphrey Anticipated Discharge Date/Time: 06/12/25 10:03 Patient Disposition: Home Activity: as tolerated Diet: regular Discharge Instructions: While in the hospital, you were treated for a kidney infection and bloodstream infection. Take all medications as prescribed. Finish antibiotics if prescribed, even if you are feeling better. Your potassium and sodium levels were mildly low. Have your lab work repeat in 3 days and sent to your primary care doctor. Follow-up with your primary care provider in 5-7 days. Return to the emergency department if you develop chest pain, shortness of breath, persistent fever >100.4, confusion, loss of consciousness. Patient Instructions: Antibiotic Form, Levofloxacin (By mouth), Kidney Infection (DC), Bacteremia (GEN), Complications of Infection (GEN) Patient Language: Khmer Stand Alone Forms: General Discharge Information Follow-up/Referrals: Snow Montgomery APRN [Primary Care Provider] - Call for Appointment (follow- up in 5-7 days) Discharge Medications: New docusate sodium 100 mg Capsule 100 mg PO BID Qty: 60 0RF levofloxacin 750 mg tablet 750 mg PO DAILY Qty: 4 0RF Continued (DME) Aerochamber MV Spacer See Rx Instructions .Route Qty: 1 0RF Rx Instructions: As directed albuterol sulfate 90 mcg/actuation HFA aerosol inhaler 2 puff inhalation QID PRN (Reason: shortness of breath or wheezing) Qty: 6.7 0RF cromolyn 4 % drops 1 drp EACH EYE DAILY fluticasone propionate 50 mcg/actuation [place],Suspension 1 spray INTRANASAL DAILY (DME) blood-glucose meter [OneTouch Ultra2 Meter] Misc MISCELLANEOUS clonazepam 0.5 mg tablet 0.25 mg PO TID PRN (Reason: anxiety) gabapentin 300 mg capsule 300 mg PO TID losartan 100 mg tablet 100 mg PO DAILY fluoxetine 20 mg capsule (DME) lancets 30 gauge misc MISCELLANEOUS (DME) lancets [Safety Lancets] 28 gauge misc MISCELLANEOUS clopidogrel 75 mg tablet 75 mg PO DAILY bupropion HCl [Wellbutrin SR] 150 mg tablet sustained-release 12 hr 150 mg PO DAILY Repatha SureClick 140 mg/mL pen injector 140 mg SUBCUT MONTHLY Qty: 2 11RF triamcinolone acetonide 0.5 % cream 1 applic topical BID Qty: 15 0RF alendronate 70 mg tablet 70 mg PO WEEKLY Qty: 12 3RF cetirizine 10 mg tablet 10 mg PO DAILY Qty: 90 3RF lorazepam 0.5 mg tablet 0.5 mg PO TID metformin 500 mg tablet 500 mg PO BID trazodone 50 mg tablet 50 mg PO HS PRN (Reason: Insomnia) Eliquis 5 mg Tablet 5 mg PO Q12HR Qty: 60 2RF midodrine 2.5 mg Tablet 5 mg PO BID Qty: 60 0RF sotalol 80 mg Tablet 120 mg PO Q12H (DME) nebulizer and compressor [[employer] S Combo Pack] Device 1 ea miscellaneous DIRECTED Qty: 1 0RF ergocalciferol (vitamin D2) 1,250 mcg (50,000 unit) capsule 50,000 unit PO WEEKLY Rx Instructions: takes weekly on Wednesday budesonide-formoterol [Symbicort] 160-4.5 mcg/actuation HFA aerosol inhaler See Rx Instructions .ROUTE .COMPLEX Rx Instructions: 2 puff inhaled AM AND HS fenofibrate 120 mg tablet 120 mg PO DAILY albuterol sulfate 2.5 mg /3 mL (0.083 %) solution for nebulization 2.5 mg inhalation Q6H PRN (Reason: shortness of breath or wheezing) magnesium oxide 400 mg (241.3 mg magnesium) Tablet 400 mg PO DAILY Qty: 7 0RF dexlansoprazole 30 mg capsule,biphase delayed releas See Rx Instructions .ROUTE .COMPLEX Qty: 30 11RF Dose Instruction: TAKE 1 CAPSULE BY MOUTH DAILY Rx Instructions: TAKE 1 CAPSULE BY MOUTH DAILY montelukast 10 mg tablet 10 mg PO QPM Qty: 90 0RF ezetimibe 10 mg tablet See Rx Instructions .ROUTE .COMPLEX Qty: 90 0RF Dose Instruction: TAKE 1 TABLET BY MOUTH EVERY DAY Rx Instructions: TAKE 1 TABLET BY MOUTH EVERY DAY Discontinued sulfamethoxazole-trimethoprim [Bactrim DS] 800-160 mg tablet 1 tablet PO Q12H Qty: 20 0RF losartan [Cozaar] 50 mg Tablet 50 mg PO DAILY Qty: 60 0RF oxybutynin chloride 5 mg Tablet 5 mg PO TID Qty: 90 0RF Other Ambulatory Orders: Basic Metabolic Panel (Routine) Timeframe: 3 Days Location: Determined by Patient Ordered By: Verena Humphrey Date of admission: 06/10/25 08:57 Primary Care Provider: Snow Montgomery Admitting Provider: Yoanna Moraes Attending physician on admission: Yoanna Moraes Condition: Stable
--- NOTE | 2025-06-18 10:03 | PC.NURSE ---
Blood cx show no growth.
== END 2025-06-12 11:26 | disposition home or self-care (01) | DRG 720 ==
LOC: ANHED 07:52 → ANHIMU 12:19 → ANH3MED 06-09 16:33
PROVIDERS: Nurse Practitioner Acute Care; Nurse Practitioner Gerontology; Admitting Provider Family Medicine; Emergency Provider Student in an Organized Health Care Education/Training Program; PCP Nurse Practitioner Family; Visit Provider Physician Assistant
DX: A41.9 Sepsis, unspecified organism (principal); N10 Acute pyelonephritis; B96.20 Unspecified Escherichia coli [E. coli] as the cause of diseases classified elsewhere; J44.1 Chronic obstructive pulmonary disease with (acute) exacerbation; N17.9 Acute kidney failure, unspecified; I48.0 Paroxysmal atrial fibrillation; M19.90 Unspecified osteoarthritis, unspecified site; I73.9 Peripheral vascular disease, unspecified; G47.33 Obstructive sleep apnea (adult) (pediatric); E78.5 Hyperlipidemia, unspecified; H35.30 Unspecified macular degeneration; E11.9 Type 2 diabetes mellitus without complications; K21.9 Gastro-esophageal reflux disease without esophagitis; I10 Essential (primary) hypertension; E86.0 Dehydration; M54.9 Dorsalgia, unspecified; M79.604 Pain in right leg; F31.9 Bipolar disorder, unspecified; I25.10 Atherosclerotic heart disease of native coronary artery without angina pectoris; Z85.51 Personal history of malignant neoplasm of bladder; Z86.73 Personal history of transient ischemic attack (TIA), and cerebral infarction without residual deficits; Z90.49 Acquired absence of other specified parts of digestive tract; Z87.891 Personal history of nicotine dependence
CPT/HCPCS: 36415; 71046; 71275; 74018; 74177; 80048; 80053; 81001; 82948; 83605; 83690; 83735; 83880; 85025; 85380; 85652; 86140; 87040; 87086; 87637; 93005; 93308; 93970; 94640; 96361; 96365; 96375; 96376; 99285; A9270; G0378; G0379; J0696; J0780; J1815; J1885; J2270; J2405; J2919; J7030; J7120; J7512; Q9967

== ENCOUNTER 2025-06-16 16:15 | Inpatient (IN) | payer OTHER, SELFPAY ==
--- NOTE | ~2025-06-16 | XR_ITS ---
EXAMINATION: XR chest 2V Exam Date/Time: 06/16/2025 18:00 CDT HISTORY: sepsis Comparison: 06/08/2025. RESULT: Lines, tubes, and devices: None. Lungs and pleura: Clear. Calcified peripheral left midlung granuloma Cardiomediastinal silhouette: Stable. Other: No acute osseous or upper abdominal finding. IMPRESSION: No acute cardiopulmonary process. Reviewed, dictated and finalized at location K.
--- NOTE | ~2025-06-16 | CT_ITS ---
EXAMINATION: CT abdomen pelvis w con DATE: 06/16/2025 18:16 INDICATION: abd pain, recent pyelo TECHNIQUE: Computed tomography (CT) of the abdomen and pelvis was performed with 100 mL Omnipaque-350 intravenous contrast. Automated exposure control and iterative reconstruction technique were employe d. The dose-length product was 495.22 mGy-cm. COMPARISON: 06/08/2025 5, 12/01/2024, 01/04/2023. FINDINGS: Lower thorax: Mitral calcification. Minimal lingular atelectasis Liver: Enlarged. Diffusely low-density parenchyma with sparing in the inferior right lobe. Biliary/Gallbladder: Gallbladder is absent. Mild intra and extrahepatic bile duct dilation, stable, p resumably secondary to cholecystectomy. Pancreas: No mass or duct dilation. Spleen: Normal. Adrenals:Indeterminate density left adrenal lesion, demonstrate long-term stability, likely adenoma. Kidneys: No suspicious mass, obstructing stone, or hydronephrosis. GI tract: Mild distal esophageal and gastric wall edema. No small or large bowel dilation. Normal shirley endix. Diverticulosis without diverticulitis. Mesentery/Peritoneum: No ascites, mass, or free air. Retroperitoneum: No mass. Atherosclerotic calcifications of intra-abdominal arterial vessels. Stents at the origins of the bilateral iliac arteries. Likely severe stenosis at the landing site of the leeann nt in the right common iliac artery. Nonocclusive eccentric thrombus in the 2 most proximal major SMA branch points, associated with chronic stable moderate plaque. Pelvis: Normal urinary bladder and uterus. Normal bilateral ovaries.. Soft Tissues: Soft tissues and body wall unremarkable. Bones: No acute osseous finding. IMPRESSION: Hepatomegaly with steatosis. Mild esophagitis/gastritis. 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 New small nonocclusive thrombi in the proximal branch points of the SMA, associated with stable ather osclerotic plaque. No concerning bowel changes to suggest ischemia. Reviewed, dictated and finalized at location K. IMPRESSION: Hepatomegaly with steatosis. Mild esophagitis/gastritis. Likely severe stenosis at the landing site of the right common iliac artery leeann nt. New small nonocclusive thrombi in the proximal branch points of the SMA, associ ated with stable atherosclerotic plaque. No concerning bowel changes to suggest ischemia.
[2025-06-16 16:11] VITALS: BP 146/98; PULSE 111; RESP 19; TEMP 36.4; O2SAT 97
--- NOTE | 2025-06-16 16:31 | ECG_ITS ---
Test Date: 2025-06-16 16:33:40 Measurements Intervals [place] Rate: 109 P: 0 SD: 0 QRS: -11 QRSD: 89 T: -29 QT: 358 QTc: 483 Interpretive Statements ATRIAL FIBRILLATION WITH RAPID VENTRICULAR RESPONSE LATERAL INFARCT, AGE INDETERMINATE BORDERLINE ST-T WAVE ABNORMALITY- INFERIOR LEADS BASELINE ARTIFACT- I, III, AVR, AVL, AVF, V1-V3 ABNORMAL ECG Compared to ECG 06/08/2025 06:49:41 SINUS RHYTHM NO LONGER PRESENT Electronically Signed On 06-16-2025 18:26:31 CDT by Erik Armstrong D.O.
--- NOTE | 2025-06-16 16:45 | ED.NAVMDI ---
HPI - Nausea/Vomiting/Diarrhea General Chief complaint: Nausea/Vomiting/Diarrhea Stated complaint: vomiting x 3 days Time Seen by Provider: 06/16/25 16:16 History of Present Illness HPI Narrative: 64-year-old female with a past medical history including COPD, diabetes, hypertension and previous bladder cancer. Patient presents to the emergency department with nausea, vomiting, diarrhea and abdominal discomfort radiating towards her back. She was recently admitted to the hospital with acute pyelonephritis with severe sepsis and discharged home after improvement and discharged home with 4 days of an oral Levaquin. She has been taking his medication and states that is not working and she is having recurrence for similar symptoms. She states she is not able to urinate, has no appetite and has decreased oral intake. States that her abdominal pain is in the middle of her abdomen going towards her back but no associated shortness of breath or chest discomfort. Endorses multiple episodes of nausea with vomiting as well as loose watery diarrhea. Reports no fever or chills. No traumatic injuries. No other medication changes besides the Levaquin. Related Data Home Medications ?Medication ?Instructions ?Recorded ?Confirmed ?Last Taken ?Type clopidogrel 75 mg tablet 75 mg PO DAILY 05/20/21 06/08/25 06/07/25 09:00 History 75 mg trazodone 50 mg tablet 50 mg PO HS PRN Insomnia 08/07/23 06/08/25 11/30/24 History lorazepam 0.5 mg tablet 0.5 mg PO TID 08/26/23 06/08/25 11/30/24 History metformin 500 mg tablet 500 mg PO BID 08/26/23 06/08/25 06/07/25 21:00 History 500 mg budesonide-formoterol HFA 160 See Rx Instructions .Route .COMPLEX 10/25/23 06/08/25 11/30/24 History mcg-4.5 mcg/actuation aerosol inhaler (Symbicort) ergocalciferol (vitamin D2) 1,250 50,000 unit PO WEEKLY 10/25/23 06/08/25 06/01/25 09:00 History mcg (50,000 unit) capsule 50,000 unit cromolyn 4 % eye drops 1 drp EACH EYE DAILY 03/02/24 06/08/25 06/06/25 09:00 History 1 drp fluticasone propionate 50 1 spray intranasal DAILY 03/02/24 06/08/25 06/07/25 09:00 History mcg/actuation nasal 1 spray spray,suspension fenofibrate 120 mg tablet 120 mg PO DAILY 11/05/24 06/08/25 06/07/25 21:00 History 120 mg sotalol 80 mg tablet 120 mg PO Q12H 12/01/24 06/09/25 06/07/25 09:00 History 120 mg blood-glucose meter (OneTouch 02/14/25 06/08/25 Unknown History Ultra2 Meter) clonazepam 0.5 mg tablet 0.25 mg PO TID PRN anxiety 02/14/25 06/08/25 06/07/25 21:00 History 0.25 mg fluoxetine 20 mg capsule mg 02/14/25 05/24/25 Unknown History gabapentin 300 mg capsule 300 mg PO TID 02/14/25 06/08/25 06/07/25 21:00 History 300 mg lancets 28 gauge (Safety Lancets) 02/14/25 06/08/25 Unknown History lancets 30 gauge 02/14/25 06/08/25 Unknown History losartan 100 mg tablet 100 mg PO DAILY 02/14/25 06/08/25 06/07/25 09:00 History 100 mg bupropion HCl 150 mg tablet,12 hr 150 mg PO DAILY 04/19/25 06/08/25 06/07/25 09:00 History sustained-release (Wellbutrin SR) 150 mg Allergies Allergy/AdvReac Type Severity Reaction Status Date / Time haloperidol Allergy Unknown Other Verified 06/16/25 16:32 risperidone Allergy Unknown MY MOUTH Verified 06/16/25 16:32 TIGHTENS UP-TD simvastatin Allergy Unknown Other Verified 06/16/25 16:32 [id number]-MgH Reductase Allergy Other Verified 06/16/25 16:32 Inhibitor codeine AdvReac Unknown NAUSEA AND Verified 06/16/25 16:32 VOMITING triazolam AdvReac Unknown N/V Verified 06/16/25 16:32 Wasp Allergy Unknown WASP Uncoded 06/16/25 16:32 STING- CLOSES MY THROAT Review of Systems Review of Systems: As reviewed above in HPI [facility] Past Medical History Medical History Asthma Abdominal pain Pneumonia Colon polyps Hemorrhoid Paroxysmal atrial fibrillation History of diverticulitis Osteoarthritis Tobacco dependence Bladder cancer Hypertension Peripheral arterial disease Type 2 diabetes mellitus Gastroesophageal reflux disease Obstructive sleep apnea Cerebrovascular accident Chronic obstructive pulmonary disease Bipolar disorder Coronary artery disease Anxiety Hyperlipidemia Macular degeneration History of gastroesophageal reflux (GERD) History of diabetes mellitus History of bladder cancer Surgical History Surgical History History of transurethral resection of bladder tumor (TURBT) History of vascular surgery Bilateral iliac stent. History of section History of cardiac catheterization History of left-sided carotid endarterectomy History of carpal tunnel release History of colonoscopy History of esophagogastroduodenoscopy (EGD) History of cholecystectomy Family History Family History Sibling Diabetes mellitus Family history of malignant neoplasm Heart disease Social History Social History Smoking packs per day: 2 Smoking cigarettes per day: 40.0 Years smoked: 30 Smoking pack-years: 60.00 Smoking status: Current every day smoker Tobacco type: cigarettes Second hand tobacco smoke exposure: No Additional smoking assessment comments: pt. was smoking 3 packs a day and has cut down to half a pack daily Alcohol intake: former Substance use: current Substance use type: marijuana Do You Feel Safe in your Home?: Yes Lack of Transportation: No Lack of Food: Never True Current Housing: I Have Housing Concerned About Future Housing: No Difficulty Paying Gas/Electric Bills: No Difficulty Paying for Meds: No Currently Unemployed: No Education: High School Diploma/GED Difficulty w/ Childcare or Family Care: No Living arrangements: alone Spiritual care concerns: No Exam Narrative: GENERAL: [Well-appearing, well-nourished, and in no acute distress.] HEAD: [Normocephalic, atraumatic.] EYES: [PERRLA and EOMI.] ENT: Nares clear, no rhinorrhea or epistaxis. Mucous membranes dry. NECK: Supple. CHEST: [Clear to auscultation. No respiratory distress.] HEART: [Regular rate and rhythm]. No murmur heard. [Normal peripheral pulses.] ABDOMEN: [Soft, nondistended], minimally tender in the lower abdominal quadrants, mild CVA tenderness, [No rigidity or guarding] EXTREMITIES: Normal range of motion. [No edema.] SKIN: Warm, dry, no rash. NEURO: [No focal deficits]. Alert and oriented [x3.] PSYCH: Tearful mood and affect Course Vital Signs Vital signs: Vital Signs Temperature 36.4 C L 06/16/25 16:11 Pulse Rate 111 H 06/16/25 16:11 Respiratory Rate 19 06/16/25 16:11 Blood Pressure 146/98 H 06/16/25 16:11 Pulse Oximetry 97 06/16/25 16:11 Oxygen Delivery Room Air 06/16/25 16:11 Temperature 36.4 C L 06/16/25 16:11 Pulse Rate 102 H 06/16/25 18:25 Respiratory Rate 15 06/16/25 18:25 Blood Pressure 127/78 06/16/25 18:25 Pulse Oximetry 100 06/16/25 18:25 Oxygen Delivery Room Air 06/16/25 16:11 MDM - Nausea/Vomiting/Diarrhea MDM Narrative Medical decision making narrative: 64-year-old female with a past medical history including COPD, diabetes, hypertension and previous bladder cancer. Patient presents to the emergency department with nausea, vomiting, diarrhea and abdominal discomfort radiating towards her back. She was recently admitted to the hospital with acute pyelonephritis with severe sepsis and discharged home after improvement and discharged home with 4 days of an oral Levaquin. She has been taking his medication and states that is not working and she is having recurrence for similar symptoms. She states she is not able to urinate, has no appetite and has decreased oral intake. States that her abdominal pain is in the middle of her abdomen going towards her back but no associated shortness of breath or chest discomfort. Endorses multiple episodes of nausea with vomiting as well as loose watery diarrhea. Reports no fever or chills. No traumatic injuries. No other medication changes besides the Levaquin. Patient appears dry on mucous membrane examination and also has tenderness in the abdominal quadrants lower and CVA tenderness. She is tachycardic with a pulse 100 10s to 120s, afebrile without any tachypnea or hypoxia. Blood pressure stable hypertension. Given patient's decreased oral intake, decreased urination and abdominal pain in the setting of recent pyelonephritis considerations presently are for failed treatment regimen, recurrent pyelonephritis, kidney abscess, retroperitoneal abscess, intra-abdominal infection otherwise such as appendicitis, cholecystitis or diverticulitis. Perforated abdominal viscus less likely. C difficile going to differential now given her diarrhea and recent antibiotic use. Patient's laboratory studies ordered this time including CBC, CMP, lactic acid, urinalysis. She was given a 30 cc/kg bolus of fluids given her normal ejection fraction on echocardiogram this last week and tachycardia likely in the setting of vascular depletion and possibility of sepsis. Awaiting initial labs and urinalysis as well as blood cultures prior to initiation of antibiotic therapy. Patient given morphine Zofran and a CT scan of the abdomen pelvis with contrast ordered. Patient's workup shows a leukocytosis of 20.5 as well as a concentrated sample with a hemoglobin of 15.9. Platelets 377. Patient is dehydrated with an JAYLEN on chronic kidney disease and received a 30 cc/kg bolus in addition will initiate maintenance infusion. Electrolytes are unremarkable. Lactic acid is 3.1, anion gap acidosis secondary to lactic acidosis, creatinine 2.04 almost double her discharge creatinine from several days ago. Glucose 197. Urinalysis is a contaminated sample but still has white blood cells and leukocyte esterase. Manual reflex culture was sent. C diff panel negative. Chest x-ray shows no acute cardiopulmonary process. CT scan shows mild esophagitis and gastritis, hepatomegaly, stenosis near the common iliac artery stent she has previously placed as well as a new small nonocclusive thrombi in the proximal SMA associated with a stable atherosclerotic plaque, no evidence of bowel ischemia. Awaiting discussion with the hospitalist for initiation or holding off on anticoagulation for this finding and potentially unrelated to her complaints and could be secondary to her sepsis, dehydration infectious pathology causing symptoms. She is on vancomycin cefepime at this time. Heart rate came down into the low 1 100s, blood pressure remained stable. She remains afebrile. The receive additional doses Zofran for nausea control. Awaiting discussion with the hospitalist for admission. Discussed with the hospitalist Dr. Lei and we went over patient's clinical exam, historical features, CT findings and her previous Gram-negative sepsis that may not have fully resolved and which is why she is here today. Her blood cultures were susceptible to cefepime but resistant to many other drugs. She is on vancomycin cefepime at this time. Recommendations to start heparin for the small nonocclusive thrombus as she has no contraindications at this time. This was ordered and she was accepted to the hospital under a IMU bed. Admission orders placed. Medical Records Attestation: I reviewed the patient's medical records. Lab Data Attestation: I reviewed the patient's lab results. 06/16/25 16:51 06/16/25 16:51 Labs: Lab Results 06/16/25 06/16/25 Range/Units 16:51 17:09 WBC 20.5 H (4.5-10.0) K/mm3 RBC 5.49 H (4.2-5.4) M/mm3 Hgb 15.9 H D (12.0-15.0) g/dL Hct 46.5 (37.0-47.0) % MCV 84.7 (80-100) fl MCH 29.0 (26-34) pg MCHC 34.2 (32-36) g/dl RDW 13.0 (11.5-14.5) % Plt Count 377 H D (150-375) k/mm3 MPV 9.9 (7.4-10.4) fl Immature Gran % (Auto) Not Reportable Neut % (Auto) Not Reportable Lymph % (Auto) Not Reportable Pender % (Auto) Not Reportable Eos % (Auto) Not Reportable Baso % (Auto) Not Reportable Lymph # (Auto) Not Reportable Pender # (Auto) Not Reportable Eos # (Auto) Not Reportable Baso # (Auto) Not Reportable Abs Immat Gran (auto) Not Reportable Absolute Neuts (auto) Not Reportable Absolute Nucleated RBC Not Reportable Total Counted 100 Neutrophils % (Manual) 81 H (46-73) % Band Neutrophils % 0 (0-6) % Lymphocytes % (Manual) 14.0 L (18-44) % Monocytes % (Manual) 4 (3-9) % Eosinophils % (Manual) 1 (0-4) % Nucleated RBC % Not Reportable Abs Neuts (Manual) 16.60 H (1.3-6.7) K/mm3 Abs Lymphs (Manual) 2.87 (1.1-4.5) K/mm3 Abs Monocytes (Manual) 0.82 (0.1-0.90) K/mm3 Absolute Eos (Manual) 0.20 (0.02-0.50) K/mm3 Platelet Estimate Adequate (Adequate) Schistocytes None seen PT 16.1 H (11.1-14.7) Seconds INR 1.3 APTT 32.0 (22.3-36.8) Seconds Sodium 132 L (137-145) mmol/L Potassium 3.4 (3.4-5.0) mmol/L Chloride 99 (98-107) mmol/L Carbon Dioxide 17 L (22-30) mmol/L Anion Gap 16 H (4-12) mmol/L BUN 41 H D (7-17) mg/dL Creatinine 2.04 H (0.7-1.0) mg/dL Estim Creat Clear Calc 26 ml/min Estimated GFR 25 L (59 - ) Glucose 197 H (65-110) mg/dL Lactic Acid 3.1 H (0.7-2.0) mmol/L Calcium 9.7 (8.4-10.2) mg/dL Total Bilirubin 0.6 (0.2-1.3) mg/dL AST 29 (14-36) U/L ALT 20 (6-35) U/L Alkaline Phosphatase 79 (38-126) U/L C-Reactive Protein 1.3 H (<1.0) mg/dL Total Protein 8.1 (6.3-8.2) g/dL Albumin 4.2 (3.5-5.1) g/dL Urine Color Yellow (Yellow) Urine Appearance Cloudy H (Clear) Urine pH 5.0 (5.0-9.0) Ur Specific [place] 1.023 (1.001-1.035) Urine Protein 3+ H (Negative) mg/dL Urine Glucose (UA) Trace H (Negative) mg/dL Urine Ketones Trace H (Negative) mg/dL Ur Blood (Man) Negative (Negative) Urine Nitrate Negative (Negative) Urine Bilirubin Negative (Negative) Urine Urobilinogen 0.2 (<2.0) mg/dL Leukocyte Esterase Rfl 1+ H (Negative) NORBERTO/UL Urine RBC 0-2 (0-2) /hpf Urine WBC 11-20 H (0-3) /hpf Ur Squamous Epith Cells Many H (Few) /hpf Urine Bacteria None seen /hpf Urine Casts >20 Hyaline Casts Present (None) /lpf C. difficile (PCR) Negative (NEGATIVE) Imaging Data Attestation: I personally reviewed and interpreted this imaging study as follows: My impression: Impressions Chest X-Ray 06/16/25 18:10 IMPRESSION: No acute cardiopulmonary process. Abdomen/Pelvis CT 06/16/25 18:41 IMPRESSION: Hepatomegaly with steatosis. Mild esophagitis/gastritis. 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 New small nonocclusive thrombi in the proximal branch points of the SMA, associated with stable atherosclerotic plaque. No concerning bowel changes to suggest ischemia. Critical Care Time Critical Care Time Critical Care Time: Yes Total Critical Care Time: 75 Discharge Plan Discharge Clinical Impression: Gram negative sepsis, Acute kidney injury, History of bladder cancer, Paroxysmal atrial fibrillation, Severe sepsis, Superior mesenteric artery thrombosis, Acute dehydration Patient Disposition: Still a Patient Condition: Stable Patient Language: Ugandan Prescriptions: No Action (DME) Aerochamber MV Spacer See Rx Instructions .Route Qty: 1 0RF Rx Instructions: As directed albuterol sulfate 90 mcg/actuation HFA aerosol inhaler 2 puff inhalation QID PRN (Reason: shortness of breath or wheezing) Qty: 6.7 0RF cromolyn 4 % drops 1 drp EACH EYE DAILY fluticasone propionate 50 mcg/actuation [place],Suspension 1 spray INTRANASAL DAILY (DME) blood-glucose meter [OneTouch Ultra2 Meter] Misc MISCELLANEOUS clonazepam 0.5 mg tablet 0.25 mg PO TID PRN (Reason: anxiety) gabapentin 300 mg capsule 300 mg PO TID losartan 100 mg tablet 100 mg PO DAILY fluoxetine 20 mg capsule (DME) lancets 30 gauge misc MISCELLANEOUS (DME) lancets [Safety Lancets] 28 gauge misc MISCELLANEOUS clopidogrel 75 mg tablet 75 mg PO DAILY bupropion HCl [Wellbutrin SR] 150 mg tablet sustained-release 12 hr 150 mg PO DAILY Repatha SureClick 140 mg/mL pen injector 140 mg SUBCUT MONTHLY Qty: 2 11RF triamcinolone acetonide 0.5 % cream 1 applic topical BID Qty: 15 0RF alendronate 70 mg tablet 70 mg PO WEEKLY Qty: 12 3RF cetirizine 10 mg tablet 10 mg PO DAILY Qty: 90 3RF lorazepam 0.5 mg tablet 0.5 mg PO TID metformin 500 mg tablet 500 mg PO BID trazodone 50 mg tablet 50 mg PO HS PRN (Reason: Insomnia) Eliquis 5 mg Tablet 5 mg PO Q12HR Qty: 60 2RF midodrine 2.5 mg Tablet 5 mg PO BID Qty: 60 0RF sotalol 80 mg Tablet 120 mg PO Q12H (DME) nebulizer and compressor [Lydia Trek S Combo Pack] Device 1 ea miscellaneous DIRECTED Qty: 1 0RF ergocalciferol (vitamin D2) 1,250 mcg (50,000 unit) capsule 50,000 unit PO WEEKLY Rx Instructions: takes weekly on Wednesday budesonide-formoterol [Symbicort] 160-4.5 mcg/actuation HFA aerosol inhaler See Rx Instructions .ROUTE .COMPLEX Rx Instructions: 2 puff inhaled AM AND HS fenofibrate 120 mg tablet 120 mg PO DAILY magnesium oxide 400 mg (241.3 mg magnesium) Tablet 400 mg PO DAILY Qty: 7 0RF docusate sodium 100 mg Capsule 100 mg PO BID Qty: 60 0RF levofloxacin 750 mg tablet 750 mg PO DAILY Qty: 4 0RF dexlansoprazole 30 mg capsule,biphase delayed releas See Rx Instructions .ROUTE .COMPLEX Qty: 30 11RF Dose Instruction: TAKE 1 CAPSULE BY MOUTH DAILY Rx Instructions: TAKE 1 CAPSULE BY MOUTH DAILY montelukast 10 mg tablet 10 mg PO QPM Qty: 90 0RF ezetimibe 10 mg tablet See Rx Instructions .ROUTE .COMPLEX Qty: 90 0RF Dose Instruction: TAKE 1 TABLET BY MOUTH EVERY DAY Rx Instructions: TAKE 1 TABLET BY MOUTH EVERY DAY albuterol sulfate 2.5 mg /3 mL (0.083 %) solution for nebulization 2.5 mg inhalation Q6H PRN (Reason: shortness of breath or wheezing) Qty: 180 0RF Follow-up/Referrals: Snow Montgomery APRN [Primary Care Provider] - Time of Disposition: 20:01
[2025-06-16 16:58] LABS: Hematocrit 46.5 % (37.0-47.0); Hemoglobin 15.9 g/dL (12.0-15.0); Mean Corpuscular HGB Conc 34.2 g/dl (32-36); Mean Corpuscular Hemoglobin 29.0 pg (26-34); Mean Corpuscular Volume 84.7 fl (80-100); Platelet Count Result 377 k/mm3 (150-375); Red Blood Count 5.49 M/mm3 (4.2-5.4); White Blood Count 20.5 K/mm3 (4.5-10.0)
[2025-06-16 17:19] LABS: Alanine Aminotransferase 20 U/L (6-35); Albumin Level 4.2 g/dL (3.5-5.1); Alkaline Phosphatase 79 U/L (38-126); Anion Gap 16 mmol/L (4-12); Aspartate Amino Transferase 29 U/L (14-36); Bilirubin,Total 0.6 mg/dL (0.2-1.3); Blood Urea Nitrogen 41 mg/dL (7-17); CRP 1.3 mg/dL (<1.0); Calcium 9.7 mg/dL (8.4-10.2); Carbon Dioxide 17 mmol/L (22-30); Chloride 99 mmol/L (98-107); Estimated CRCL calculation 26 ml/min; Estimated Glomerular Filt Rate 25; Glucose 197 mg/dL (65-110); Potassium 3.4 mmol/L (3.4-5.0); Sodium 132 mmol/L (137-145); Total Protein 8.1 g/dL (6.3-8.2)
[2025-06-16 17:23] LABS: INR 1.3; Prothrombin Time 16.1 Seconds (11.1-14.7)
[2025-06-16 17:24] LABS: Partial Thromboplastin Time 32.0 Seconds (22.3-36.8)
--- OUTSIDE RECORDS SUMMARY | 2025-06-16 17:24 | XMS_ITS | Clinical Summary ---
Author Organization [facility] Address [address] [place] [address] Care Team Providers Care Wax Cutter Name Role Phone Asa Mcnamara MD Unavailable [phone] Neva Holden MD Primary Care Provider [phone] Allergies Active Allergy Reactions Criticality Noted Date Comments Codeine Nausea and Vomiting 04/05/2019 Haloperidol Seizure 05/20/2016 Ketorolac Tromethamine Unknown 04/04/2013 Penicillins Hives,Redness High 04/04/2013 Pzc-Ad-Fgu-Propyl Buljyz-Ubi-Emnsgntaa Seizure 05/20/2016 Risperidone And Paliperidone Hives,Other (see [...] tablet 1 0 Active vitamin D2, ergocalciferol, 86432 UNITS capsule Take 50,000 Units by mouth [...] (primary) hypertension PVD (peripheral vascular disease) Emphysema/COPD ([facility]) Diabetes ([facility] Stroke ([facility]) Overview (05/20/2016): h/o Asthma ([facility]) Arthritis GERD (gastroesophageal reflux [...] Sex Assigned at Female 12/06/2019 3:36 PM SHELLFISH SHUCKER Legal Sex Female 5:20 PM CDT Gender Identity Female 12/06/2019 3:36 PM SHELLFISH SHUCKER Sexual Orientation Straight 12/06/2019 3: 36 PM SHELLFISH SHUCKER Occupation Industry Job Start Date Job End Date Not on file Not on file Not on file Not on file Last Filed Vital Signs Vital Sign Reading Time Taken Comments Blood Pressure 102/80 06/14/2020 1:49 PM CDT Pulse 98 06/14/2020 1:49 PM CDT Temperature 36.9 C (98.4 F) 12/07/2017 8:32 AM SHELLFISH SHUCKER Respiratory Rate 18 12/07/2017 8:32 AM SHELLFISH SHUCKER Oxygen Saturation 95% 02/21/2020 8:36 AM CDT [...] 05/02/2020 LIPID PANEL Routine 12/19/2018 7:52 AM SHELLFISH SHUCKER Mixed hyperlipidemia from Last 3 Months or Most Recently Relevant to Health Maintenance Results * HEMOGLOBIN, GLYCOSYLATED (05/02/2020) HGB A1C 7.6 % 05/02/2020 us Doc [facility] LABORATORY Final Result * (ABNORMAL) LIPID PANEL (12/19/2018 7:52 AM SHELLFISH SHUCKER) CHOLESTEROL 173 <200 MG/DL 12/19/2018 8:31 AM [facility] TRIGLYCERIDES 155(H) <150 MG/DL 12/19/2018 8:31 AM [facility] HDL 44 >40.0 MG/DL 12/19/2018 8:31 AM [facility] LDL (CALCULATED) 98 <100 MG/DL 12/19/2018 8:31 AM [facility] NON HDL CHOLESTEROL 129 <130 MG/DL 12/19/2018 8:31 AM [facility] CHOL/HDL RATIO 3.9 0.0 - 4.5 12/19/2018 8:31 AM [facility] VLDL CALCULATION 31 5 - 55 MG/DL 12/19/2018 8:31 AM [facility] LIPID INTERPRETATION 12/19/2018 8:31 AM [facility] Comment: [facility] CONCENSUS REPORT RECOMMENDATIONS: ADULT CHILD LOW RISK: CHOLESTEROL <200 <170 TRIGLYCERIDE <150 --- HDL >=60 --- LDL <100 <110 BORDERLINE: CHOLESTEROL 200-239 170-199 TRIGLYCERIDE 150-199 --- HDL 40-59 --- LDL 100-159 110-129 HIGH RISK: CHOLESTEROL >=240 >=200 TRIGLYCERIDE >=200 --- HDL <40 --- LDL >=160 >=130 12/19/2018 7:52 AM SHE[employer] SHUCKER Asa Mcnamara MD LABORATORY Final Result [facility] [address] [place] [address], [place] [phone] from Last 3 Months or Most Recently Relevant to Health Maintenance Insurance [facility] Care Teams Wax Cutter Relationship Specialty Start Date End Date Neva Holden MD [facility] [address] [place] [address] PCP - General FAMILY PRACTICE 02/14/20 Asa Mcnamara MD [facility]. [facility] [address] [place] [address] [place] Manager Of Radiology CARDIOVASCULAR DISEASE 05/15/16
--- OUTSIDE RECORDS SUMMARY | 2025-06-16 17:24 | XMS_ITS | Encounter Summary ---
Author Organization [facility] Address [address] [place] [address] Care Team Providers Care School Counsellor Name Role Phone SullivanDane gonzalez DO Primary Care Provider [phone] Asa Mcnamara MD Unavailable [phone] Deisi Andrews MD Primary Care Provider [phone] Heber Adrono MD Primary Care Provider Unavailable Deisi Andrews MD Primary Care Provider [phone] Neva Holden MD Primary Care Provider [phone] Deisi Andrews MD Primary Care Provider [phone] Neva Holden MD Primary Care Provider [phone] Encounter Details Date Type Department Care Team (Late st Contact Info) Description 05/21/2016 Abstract [facility] AT [address] [address] Rafael Thakur MA Social History Tobacco Use Types Packs/Day Years Used Date Smoking Tobacco: Every Day Cigarettes Smokeless Tobacco: Never Alcohol Use Standard Drinks/Week Comments No 0 (1 standard drink = 0.6 oz pur e alcohol) Comments Unknown Sex and Gender Information Value Date Recorded Sex Assigned at Female 12/06/2019 3:36 PM [employer] DES[employer]ER Legal Sex Female 5:20 PM CDT Gender Identity Female 12/06/2019 3:36 PM [employer] DESIGNER Sexual Orientation Straight 12/06/2019 3: 36 PM [employer] GAME DESIGNER Occupation Industry Job Start Date Job [...] on filedocumented in this encounter Care Teams School Counsellor Relationship Specialty Start Date End Date Dane Sullivan DO PCP - General FAMILY PRACTICE 05/15/16 02/11/17 Deisi Andrews MD [address] [place] [address] PCP - General FAMILY PRACTICE 02/13/17 03/10/17 Heber Adorno MD PCP - General 03/11/17 06/14/17 Deisi Andrews MD [address] [place] [address] PCP - General FAMILY PRACTICE 06/15/17 10/14/19 Neva Holden MD [facility] [address] PCP - General FAMILY PRACTICE 10/15/19 12/05/19 Deisi Andrews MD [address] [place] [id number] PCP - General FAMILY PRACTICE 12/06/19 02/13/20 Neva Holden [facility] [address] [place] [address] PCP - General FAMILY PRACTICE 02/14/20 Asa Mcnamara MD [facility] [address] [place] [address] [employer] Intern CARDIOVASCULAR DISEASE 05/15/16 documented as of this encounter
--- OUTSIDE RECORDS SUMMARY | 2025-06-16 17:24 | XMS_ITS | Encounter Summary ---
Author Organization [facility] Address [address] [place] [address] Care Team Providers Care Solar Sales Rep Name Role Phone Asa Mcnamara MD Unavailable [phone] Deisi Andrews MD Primary Care Provider [phone] Neva Holden MD Primary Care Provider [phone] Deisi Andrews MD Primary Care Provider [phone] Neva Holden MD Primary Care Provider [phone] Encounter Details Date Type Department Care Team (Late st Contact Info) Description 11/25/2018 [facility] at [address] [address] Rafael Thakur MA Social History Tobacco Use Types Packs/Day Years Used Date Smoking Tobacco: Every Day Cigarettes Smokeless Tobacco: Never Comments:1 pk day Alcohol Use Standard Drinks/Week Comments No 0 (1 standard drink = 0.6 oz pur e alcohol) Comments Unknown Sex and Gender Information Value Date Recorded Sex Assigned at Female 12/06/2019 3:36 PM MOCK UP MAKER Legal Sex Female 5:20 PM CDT Gender Identity Female 12/06/2019 3:36 PM MOCK UP MAKER Sexual Orientation Straight 12/06/2019 3: 36 PM MOCK UP MAKER Occupation Industry Job Start Date Job [...] filedocumented in this encounter Care Teams Solar Sales Rep Relationship Specialty Start Date End Date Deisi Andrews MD [address] [address] PCP - General FAMILY PRACTICE 06/15/17 10/14/19 Neva Holden MD [facility] [address] [place] [address] PCP - General FAMILY PRACTICE 10/15/19 12/05/19 Deisi Andrews MD [address] [place] [address] PCP - General FAMILY PRACTICE 12/06/19 02/13/20 Neva Holden MD [facility] [address] [place] [address] PCP - General FAMILY PRACTICE 02/14/20 Asa Mcnamara MD Three [facility]. [facility] [address] [place] [address] [place] Mechanical Product Design Engineer CARDIOVASCULAR DISEASE 05/15/16 documented as of this encounter
--- OUTSIDE RECORDS SUMMARY | 2025-06-16 17:24 | XMS_ITS | Clinical Summary ---
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 Active losartan (COZAAR) 100 mg tablet Take [...] 05/27/2031 05/27/2021, 01/31/2019 Insurance , [address] [place] [address] [employer] MEDICAID Care Teams Front Line Leader Relationship Specialty Start Date End Date Provider, Abstract NO ADDRESS ON FILE PCP - General 03/24/19
--- OUTSIDE RECORDS SUMMARY | 2025-06-16 17:24 | XMS_ITS | Patient Health Record ---
Author Organization [facility] Address [address] [place] [address] Care Team Providers Care Cosmetics Supervisor Name Role Phone Earl Bhandari Unavailable [phone] REASON FOR REFERRAL No Information PLAN OF TREATMENT No Information Insurance Providers Payer Name Payer Address Payer Phone Subscriber Number Group Number Insured Name Patient Relationship to Insured Coverage Start Date Coverage End Date [facility] [address] [place] [phone] [id number] Rody Zaidi Self - patient is the insured
--- OUTSIDE RECORDS SUMMARY | 2025-06-16 17:24 | XMS_ITS | Encounter Summary ---
Author Organization [facility] Address [address] [place] [address] Care Team Providers Care Dry Food Products Mixer Name Role Phone Asa Mcnamara MD Unavailable [phone] Neva Holden MD Primary Care Provider [phone] Encounter Details Date Type Department Care Team (Late st Contact Info) Description 07/03/2020 [facility] at [address] [address] Rafael Thakur MA Social History Tobacco Use Types Packs/Day Years Used Date Smoking Tobacco: Every Day Cigarettes Smokeless Tobacco: Never Comments:1 pk day Alcohol Use Standard Drinks/Week Comments No 0 (1 standard drink = 0.6 oz pur e alcohol) Comments Unknown Sex and Gender Information Value Date Recorded Sex Assigned at Female 12/06/2019 3:36 PM SERVICE DESK SPECIALIST Legal Sex Female 5:20 PM CDT Gender Identity Female 12/06/2019 3:36 PM SERVICE DESK SPECIALIST Sexual Orientation Straight 12/06/2019 3: 36 PM SERVICE DESK SPECIALIST Occupation Industry Job Start Date Job [...] filedocumented in this encounter Care Teams Dry Food Products Mixer Relationship Specialty Start Date End Date Neva Holden MD [facility] [address] [place] [address] PCP - General FAMILY PRACTICE 02/14/20 Asa Mcnamara MD Three [facility]. [facility] [address] [place] [address] [place] Shag Truck Driver CARDIOVASCULAR DISEASE 05/15/16 documented as of this encounter
--- OUTSIDE RECORDS SUMMARY | 2025-06-16 17:25 | XMS_ITS | Encounter Summary ---
Author Organization [facility] Address [address] [place] [address] Care Team Providers Care Cap Inspector Name Role Phone Asa Mcnamara MD Unavailable [phone] Heber Adorno MD Primary Care Provider Unavailable Deisi Andrews MD Primary Care Provider [phone] Neva Holden MD Primary Care Provider [phone] Deisi Andrews MD Primary Care Provider [phone] Neva Holden MD Primary Care Provider [phone] Encounter Details Date Type Department Care Team (Late st Contact Info) Description 04/30/2017 Abstract [facility] AT [address] [id number] Rafael Thakur MA Social History Tobacco Use Types Packs/Day Years Used Date Smoking Tobacco: Every Day Cigarettes Smokeless Tobacco: Never Alcohol Use Standard Drinks/Week Comments No 0 (1 standard drink = 0.6 oz pur e alcohol) Comments Unknown Sex and Gender Information Value Date Recorded Sex Assigned at Female 12/06/2019 3:36 PM KNIFE OPERATOR Legal Sex Female 5:20 PM CDT Gender Identity Female 12/06/2019 3:36 PM KNIFE OPERATOR Sexual Orientation Straight 12/06/2019 3: 36 PM KNIFE OPERATOR Occupation Industry Job Start Date Job [...] on filedocumented in this encounter Care Teams Cap Inspector Relationship Specialty Start Date End Date Heber Adorno MD PCP - General 03/11/17 06/14/17 Deisi Andrews MD [address] [place] [address] PCP - General FAMILY PRACTICE 06/15/17 10/14/19 Neva Holden MD . [facility] [address] [place] [address] PCP - [facility] FAMILY PRACTICE 10/15/19 12/05/19 Deisi Andrews MD [address] [place] [address] PCP - General FAMILY PRACTICE 12/06/19 02/13/20 Neva Holden MD [facility] [address] [place] [address] PCP - [facility] FAMILY PRACTICE 02/14/20 Asa Mcnamara MD [facility]. [facility] [address] [place] [address] [place] Machine Feller CARDIOVASCULAR DISEASE 05/15/16 documented as of this encounter
--- OUTSIDE RECORDS SUMMARY | 2025-06-16 17:25 | XMS_ITS | Encounter Summary ---
Author Organization [facility] Address [address] [place] [address] Care Team Providers Care Radio Interference Expert Name Role Phone Asa Mcnamara MD Unavailable [phone] Neva Holden MD Primary Care Provider [phone] Deisi Andrews MD Primary Care Provider [phone] Neva Holden MD Primary Care Provider [phone] Encounter Details Date Type Department Care Team (Late st Contact Info) Description 11/01/2019 [facility] at [address] [address] Rafael Thakur MA Social History Tobacco Use Types Packs/Day Years Used Date Smoking Tobacco: Every Day Cigarettes Smokeless Tobacco: Never Comments:1 pk day Alcohol Use Standard Drinks/Week Comments No 0 (1 standard drink = 0.6 oz pur e alcohol) Comments Unknown Sex and Gender Information Value Date Recorded Sex Assigned at Female 12/06/2019 3:36 PM CLIENT DEVELOPMENT DIRECTOR Legal Sex Female 5:20 PM CDT Gender Identity Female 12/06/2019 3:36 PM CLIENT DEVELOPMENT DIRECTOR Sexual Orientation Straight 12/06/2019 3: 36 PM CLIENT DEVELOPMENT DIRECTOR Occupation Industry Job Start Date Job [...] on filedocumented in this encounter Care Teams Radio Interference Expert Relationship Specialty Start Date End Date Neva Holden MD [facility] [address] [place] [address] PCP - General FAMILY PRACTICE 10/15/19 12/05/19 Deisi Andrews MD [address] [place] [address] PCP - General FAMILY PRACTICE 12/06/19 02/13/20 Neva Holden MD [facility] [address] [place] [address] PCP - General FAMILY PRACTICE 02/14/20 Asa Mcnamara MD Three [facility]. [facility] [address] [place] [address] [place] [facility] Tax Services Intern CARDIOVASCULAR DISEASE 05/15/16 documented as of this encounter
--- OUTSIDE RECORDS SUMMARY | 2025-06-16 17:25 | XMS_ITS | Clinical Summary ---
Author Organization [facility] Address [address], [facility] [address] [place] [address] Phone Care Team Providers Care Concrete Laborer Name Role Phone Olu Nieto APRN, GATE TECHNICIAN Primary Care Provider Allergies Active Allergy Reactions [...] Insurance MEDICAID [employer] Care Teams Concrete Laborer Relationship Specialty Start Date End Date Olu Nieto, NETWORK INTERNSHIP, GATE TECHNICIAN [address] [place] [address] PCP - General Certified Nurse Practitioner 11/02/18
[2025-06-16 17:39] LABS: Eosinophils Absolute Manual 0.20 K/mm3 (0.02-0.50); Eosinophils Percent Manual 1 % (0-4); Lymphocytes Absolute Manual 2.87 K/mm3 (1.1-4.5); Lymphocytes Percent Manual 14.0 % (18-44); Monocytes Absolute Manual 0.82 K/mm3 (0.1-0.90); Monocytes Percent Manual 4 % (3-9); Neutrophils Percent Manual 81 % (46-73); Total Cells Counted 100
[2025-06-16] MEDS: SODIUM CHLORIDE 0.9% IV 1,000 ML 999 ML IV CONT ×2 (17:39)
[2025-06-16 17:40] LABS: Schistocytes None Seen
[2025-06-16] MEDS: SODIUM CHLORIDE 0.9% IV 600 ML 999 ML IV CONT (17:40)
[2025-06-16] MEDS: ONDANSETRON INJ 4 MG/2 ML VIAL IV PUSH ×2 (17:40→19:59)
[2025-06-16] MEDS: MORPHINE SULFATE (*CRX) 4 MG/ML INJ IV PUSH (17:40)
[2025-06-16 17:43] LABS: Add Urine Microscopic? YES; Appearance Urine Cloudy (Clear); Glucose Urine UA Trace mg/dL (Negative); Leukocyte Esterase Ur 1+ LEU/UL (Negative); Nitrate Urine Negative (Negative); Non Pathogenic Casts >20; Specific Grav Ur 1.023 (1.001-1.035)
[2025-06-16 17:46] LABS: Band Neutrophils Percent 0 % (0-6); Neutrophils Absolute Manual 16.60 K/mm3 (1.3-6.7)
[2025-06-16 18:25] VITALS: BP 127/78; PULSE 102; PULSE 109; RESP 15; O2SAT 100
[2025-06-16 18:29] LABS: Toxigenic C. Diff NEGATIVE (NEGATIVE)
[2025-06-16] MEDS: CEFEPIME 2 GM in SODIUM CHLORIDE 0.9% IV 50 ML 100 ML IVPB (19:04)
[2025-06-16] MEDS: VANCOMYCIN 1,250 MG/NS 250 ML 1,250 MG/250 ML BAG 166.67 MG IVPB (19:58)
[2025-06-16 20:21] LABS: Hematocrit 40.5 % (37.0-47.0); Hemoglobin 13.3 g/dL (12.0-15.0); Immature Granulocyte Percent A 1.5 % (0-0.5); Lymphocytes Absolute Auto 2.15 K/mm3 (0.9-3.2); Mean Corpuscular HGB Conc 32.8 g/dl (32-36); Mean Corpuscular Hemoglobin 28.9 pg (26-34); Mean Corpuscular Volume 87.9 fl (80-100); Nucleated Red Blood Cells Absolute Auto 0.000 K/mm3 (0.0-0.012); Nucleated Red Blood Cells Perc 0.0 % (0.0-0.2); Platelet Count Result 270 k/mm3 (150-375); Red Blood Count 4.61 M/mm3 (4.2-5.4); White Blood Count 13.2 K/mm3 (4.5-10.0)
[2025-06-16 20:32] LABS: INR 1.4; Prothrombin Time 17.2 Seconds (11.1-14.7)
[2025-06-16 20:33] LABS: Partial Thromboplastin Time 31.7 Seconds (22.3-36.8)
[2025-06-16] MEDS: HEPARIN SOD/D5W 100 UNITS/ML 25,000 UNITS/250 ML BAG 11 UNITS IV CONT (21:00)
[2025-06-16] MEDS: SODIUM CHLORIDE 0.9% IV 1,000 ML 150 ML IV CONT (21:03)
[2025-06-16 21:24] VITALS: O2SAT 97
[2025-06-16 21:29] VITALS: BP 91/67; PULSE 107; RESP 20; TEMP 36.4; O2SAT 100
[2025-06-16 21:43] VITALS: BMI 34.5
--- NOTE | 2025-06-16 21:48 | ADMGEN ---
This patient, Rody Zaidi, was admitted to IMU Room 214-01. Patient/family oriented to hospital policies and general routines including ID bracelet, bed and alarms, visiting hours, pain management, procedures, bathroom and other care routines, personal items, smoking policy, room service/diet, and visiting hours. Information on how to activate the Rapid Response Team has been discussed. Patient/Family are encouraged to report perceived risks to care and to ask questions if they do not understand what they are told or what they should do.
[2025-06-16 22:00] VITALS: PULSE 99
--- NOTE | 2025-06-16 22:11 | P.HP_ITS ---
H&P: HPI History of Present Illness Date/Time: 06/16/25 22:11 Chief Complaint: Nausea, vomiting and abdominal pain. Narrative: 64-year-old female with a past medical history of bipolar disorder, COPD with continued tobacco use, diverticulitis, GERD, gastroparesis, paroxysmal atrial fibrillation, peripheral artery disease and type 2 diabetes mellitus and recurrent urinary tract infections with recent hospitalization with sepsis E coli pyelonephritis, E coli bacteremia due to UTI 06/08/2025 through 06/12/2025 who presented to the ER with recurrent nausea and vomiting. She was treated for bacteremia and had repeat blood cultures that were negative. She reports that she took her antibiotics as directed. She stated that she felt better for the 1st 2 days she was home a but did start having some burning type pain in her epigastric region 2 days ago. She thought it may be due to the antibiotics but she did complete the antibiotic course for a total 4 days. She stated that she had only really eaten 1 meal prior to being discharged from the hospital. As soon as she returned home she had a recurrence of nausea but did not have any medications prescribed for nausea 2 days ago she began having intractable nausea vomiting and reports her emesis was yellow and she had frequent dry heaves. She denies having any recurrence of her fevers or chills that she had had during her last hospitalization. She reported that with some of her episodes of emesis she felt some fluttering in her chest. She reported that she felt like she was breathing heavier for the last 24 hours but denied any actual shortness of breath. She has not had any cough or congestion. She stated that she only had 2 voids day before yesterday and did not have any urine output today until she arrived in the ER. She stated she had 1 normal bowel movement prior to being discharged from the hospital. In 2 days ago she took some Pepto-Bismol to help treat her epigastric symptoms which did help with her GERD. She had 1 soft dark colored bowel movement after taking the Pepto-Bismol. 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 She denied any flank pain but on exam reported some mild bilateral flank pain with percussion. She denies any current dysuria, hematuria, or hematochezia. She was afebrile and had some mild tachycardia but normal blood pressures on arrival to the ER. She stated that she last had a EGD and colonoscopy performed [address] Hurst. In the ER: Her urine culture during her last hospitalization demonstrated resistance to Augmentin, ampicillin, cefazolin, cefopooxine, tetracycline and Bactrim. Initial CBC on arrival to the ER demonstrated significant hemoconcentration with a jump in hemoglobin of 3 g compared to recent values and elevated white count up to 20.5. Her electrolyte panel demonstrated drop in serum bicarb down to 17 with an anion gap of 16 and a jump in her creatinine from 1-2.04 with elevated BUN and lactic acid level of 3.1 with repeat lactic acid of 2.2 after 30 mL/kilos fluid bolus. UA demonstrated 3+ protein, trace ketones, trace glucose and 1+ leukocyte esterase with 11-20 wbc's and many squamous and greater than 20 cast with no bacteria. Urine was still sent for culture and blood cultures were obtained and are pending. Review of Systems 2 Review of Systems: 12 systems were reviewed with pertinent positives and negatives per HPI. Except as documented in the HPI, all other systems were reviewed and are negative. [facility] Past Medical History Medical History (Updated 06/17/25 @ 00:37 by Marva Lei DO) C. difficile diarrhea Two thousand twenty[age]three Chronic sinusitis Gastroparesis Age related osteoporosis Asthma Colon polyps Hemorrhoid Paroxysmal atrial fibrillation History of diverticulitis Osteoarthritis Tobacco dependence Bladder cancer Hypertension Peripheral arterial disease Type 2 diabetes mellitus Gastroesophageal reflux disease Obstructive sleep apnea Cerebrovascular accident Chronic left lacunar infarct noted on prior MRI 2014 Chronic obstructive pulmonary disease Bipolar disorder Coronary artery disease Anxiety Hyperlipidemia Macular degeneration History of gastroesophageal reflux (GERD) History of diabetes mellitus History of bladder cancer Surgical History Surgical History History of transurethral resection of bladder tumor (TURBT) History of vascular surgery Bilateral iliac stent. History of section History of cardiac catheterization History of left-sided carotid endarterectomy History of carpal tunnel release History of colonoscopy History of esophagogastroduodenoscopy (EGD) History of cholecystectomy Family History Family History Sibling Diabetes mellitus Family history of malignant neoplasm Heart disease Social History Social History (Updated 06/17/25 @ 00:08 by Marva J. Hopen, DO) Social History: The patient reports that she lives in her own apartment alone. She has 1 daughter and 1 son who live in [place] and [place] respectively. She has 1 3-year-old grandchild. She still smokes between 0.5-1 pack of cigarettes per day (down from her prior use of up to 3 packs of cigarettes per day). She has smoked since she was 16. She drink heavily up until her early 20s but does not drink currently. She uses marijuana frequently. Code status: Full code Surrogate decision maker: Joelle Richard (sister) Smoking packs per day: 1 Smoking cigarettes per day: 20.0 Years smoked: 40 Smoking pack-years: 40.00 Smoking status: Current every day smoker Tobacco type: cigarettes Second hand tobacco smoke exposure: No Additional smoking assessment comments: pt. was smoking 3 packs a day and has cut down to half a pack daily Alcohol intake: former Substance use: current Substance use type: marijuana Do You Feel Safe in your Home?: Yes Lack of Transportation: No Lack of Food: Never True Current Housing: I Have Housing Concerned About Future Housing: No Difficulty Paying Gas/Electric Bills: No Difficulty Paying for Meds: No Currently Unemployed: No Education: High School Diploma/GED Difficulty w/ Childcare or Family Care: No Living arrangements: alone Spiritual care concerns: No Meds Home Medications and Allergies Home Medications ?Medication ?Instructions ?Recorded ?Confirmed ?Type clopidogrel 75 mg tablet 75 mg PO DAILY 05/20/21 06/16/25 History albuterol sulfate 90 mcg/actuation 2 puff inhalation QID PRN 07/29/23 06/16/25 Rx aerosol inhaler shortness of breath or wheezing #6.7 grams inhalational spacing device #1 ea 07/29/23 06/16/25 Rx (Aerochamber MV spacer) apixaban 5 mg tablet (Eliquis) 5 mg PO Q12HR #60 tabs 08/11/23 06/16/25 Rx metformin 500 mg tablet 500 mg PO BID 08/26/23 06/16/25 History ergocalciferol (vitamin D2) 1,250 50,000 unit PO WEEKLY 10/25/23 06/16/25 History mcg (50,000 unit) capsule cromolyn 4 % eye drops 1 drp EACH EYE DAILY 03/02/24 06/16/25 History fluticasone propionate 50 1 spray intranasal DAILY 03/02/24 06/16/25 History mcg/actuation nasal spray,suspension dexlansoprazole 30 mg See Rx Instructions .Route 08/24/24 06/16/25 Rx capsule,biphase delayed release .COMPLEX #30 caps fenofibrate 120 mg tablet 120 mg PO DAILY 11/05/24 06/16/25 History sotalol 80 mg tablet 120 mg PO Q12H 12/01/24 06/16/25 History nebulizer and compressor (Lydia #1 ea 12/04/24 06/16/25 Rx Trek S Combo Pack device) blood-glucose meter (OneTouch 02/14/25 06/16/25 History Ultra2 Meter) clonazepam 0.5 mg tablet 0.25 mg PO TID PRN anxiety 02/14/25 06/16/25 History gabapentin 300 mg capsule 300 mg PO TID 02/14/25 06/16/25 History lancets 28 gauge (Safety Lancets) 02/14/25 06/16/25 History lancets 30 gauge 02/14/25 06/16/25 History losartan 100 mg tablet 100 mg PO DAILY 02/14/25 06/16/25 History bupropion HCl 150 mg tablet,12 hr 150 mg PO DAILY 04/19/25 06/16/25 History sustained-release (Wellbutrin SR) triamcinolone acetonide 0.5 % 1 applic topical BID #15 grams 04/19/25 06/16/25 Rx topical cream montelukast 10 mg tablet 10 mg PO QPM #90 tabs 05/17/25 06/16/25 Rx alendronate 70 mg tablet 70 mg PO WEEKLY #12 tabs 05/24/25 06/16/25 Rx cetirizine 10 mg tablet 10 mg PO DAILY #90 tabs 05/24/25 06/16/25 Rx ezetimibe 10 mg tablet See Rx Instructions .Route 05/30/25 06/16/25 Rx .COMPLEX #90 tabs docusate sodium 100 mg capsule 100 mg PO BID #60 caps 06/12/25 06/16/25 Rx albuterol sulfate 2.5 mg/3 mL 2.5 mg (3 mL) inhalation Q6H PRN 06/15/25 06/16/25 Rx (0.083 %) solution for nebulization shortness of breath or wheezing #180 mL hydrocodone 7.5 mg-acetaminophen 1 tablet PO Q6H pain 06/16/25 06/16/25 History 325 mg tablet ondansetron 4 mg disintegrating 4 mg PO PRN nausea and vomiting 06/16/25 History tablet Allergies Allergy/AdvReac Type Severity Reaction Status Date / Time haloperidol Allergy Unknown Other Verified 06/16/25 22:03 risperidone Allergy Unknown MY MOUTH Verified 06/16/25 22:03 TIGHTENS UP-TD simvastatin Allergy Unknown Other Verified 06/16/25 22:03 Jqmeanp-TKS-VwR Reductase Allergy Other Verified 06/16/25 22:03 Inhibitor codeine AdvReac Unknown NAUSEA AND Verified 06/16/25 22:03 VOMITING triazolam AdvReac Unknown N/V Verified 06/16/25 22:03 Wasp Allergy Unknown WASP Uncoded 06/16/25 16:32 STING- CLOSES MY THROAT Vital Signs Vital Signs - 24 hr 06/16/25 16:11 06/16/25 18:25 06/16/25 18:25 Temperature 97.5 F L Pulse Rate 111 H 109 H 102 H Respiratory Rate 19 15 Blood Pressure 146/98 H 127/78 Pulse Oximetry 97 100 Oxygen Delivery Room Air 06/16/25 21:24 06/16/25 21:29 Temperature 97.6 F Pulse Rate 107 H Respiratory Rate 20 Blood Pressure 91/67 L Pulse Oximetry 97 100 Oxygen Delivery Room Air Exam 2 Narrative: Weight 83 kg BMI 34.6 Const: Other: No acute distress, obese, appears older than stated age HENMT: Other: Scabbed ulcer to the right upper lip, mucous membranes are tacky, crowded posterior oropharynx, edentulous in upper and lower jaw Eyes: Other: Pupils are equal and reactive, bilateral cataracts noted, no conjunctival pallor, no scleral icterus, extraocular movements intact Neck: Other: No lymphadenopathy, no JVD, trachea midline Resp: Other: Decreased breath sounds posteriorly, no increased work of breathing, no tachypnea Cardio: Other: Distant heart sounds, no murmur, sinus tachycardia with rate in the mid 90s. GI: Other: Soft, nontender, slightly distended, normoactive bowel sounds Back/Spine/Pelvis: Other: Moderate thoracic kyphosis Skin: Other: No pallor, non jaundice Neuro: Other: Alert oriented, speech is clear, no facial asymmetry, cranial nerves 2-12 appear to be grossly intact, no localizing neurologic deficits noted during the course of conversation Extrem: Other: No clubbing, cyanosis or edema Psych: Other: Appropriate mood and affect, pleasant and cooperative, judgment and insight intact H&P: Results Labs Labs: Laboratory Tests 06/16/25 20:17 06/16/25 16:51 06/16/25 06/16/25 06/16/25 16:51 17:09 20:17 WBC 20.5 H 13.2 H RBC 5.49 H 4.61 Hgb 15.9 H D 13.3 Hct 46.5 40.5 MCV 84.7 87.9 MCH 29.0 28.9 MCHC 34.2 32.8 RDW 13.0 13.1 Plt Count 377 H D 270 MPV 9.9 9.9 Immature Gran % (Auto) Not Reportable 1.5 H Neut % (Auto) Not Reportable 73.5 H Lymph % (Auto) Not Reportable 16.3 L [place] % (Auto) Not Reportable 7.8 Eos % (Auto) Not Reportable 0.5 Baso % (Auto) Not Reportable 0.4 Lymph # (Auto) Not Reportable 2.15 [place] # (Auto) Not Reportable 1.0 H Eos # (Auto) Not Reportable 0.1 Baso # (Auto) Not Reportable 0.1 Abs Immat Gran (auto) Not Reportable 0.20 H Absolute Neuts (auto) Not Reportable 9.7 H Absolute Nucleated RBC Not Reportable 0.000 Total Counted 100 Neutrophils % (Manual) 81 H Band Neutrophils % 0 Lymphocytes % (Manual) 14.0 L Monocytes % (Manual) 4 Eosinophils % (Manual) 1 Nucleated RBC % Not Reportable 0.0 Abs Neuts (Manual) 16.60 H Abs Lymphs (Manual) 2.87 Abs Monocytes (Manual) 0.82 Absolute Eos (Manual) 0.20 Platelet Estimate Adequate Schistocytes None seen PT 16.1 H 17.2 H INR 1.3 1.4 APTT 32.0 31.7 Sodium 132 L Potassium 3.4 Chloride 99 Carbon Dioxide 17 L Anion Gap 16 H BUN 41 H D Creatinine 2.04 H Estim Creat Clear Calc 26 Estimated GFR 25 L Glucose 197 H Lactic Acid 3.1 H 2.2 H Calcium 9.7 Total Bilirubin 0.6 AST 29 ALT 20 Alkaline Phosphatase 79 C-Reactive Protein 1.3 H Total Protein 8.1 Albumin 4.2 Urine Color Yellow Urine Appearance Cloudy H Urine pH 5.0 Ur Specific [place] 1.023 Urine Protein 3+ H Urine Glucose (UA) Trace H Urine Ketones Trace H Ur Blood (Man) Negative Urine Nitrate Negative Urine Bilirubin Negative Urine Urobilinogen 0.2 Leukocyte Esterase Rfl 1+ H Urine RBC 0-2 Urine WBC 11-20 H Ur Squamous Epith Cells Many H Urine Bacteria None seen Urine Casts >20 Hyaline Casts Present C. difficile (PCR) Negative Impressions Chest X-Ray 06/16/25 18:10 IMPRESSION: No acute cardiopulmonary process. Abdomen/Pelvis CT 06/16/25 18:41 IMPRESSION: Hepatomegaly with steatosis. Mild esophagitis/gastritis. 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 New small nonocclusive thrombi in the proximal branch points of the SMA, associated with stable atherosclerotic plaque. No concerning bowel changes to suggest ischemia. EKG: Test Date: 2025-06-16 16:33:40 Measurements Intervals [place] Rate: 109 P: 0 AR: 0 QRS: -11 QRSD: 89 T: -29 QT: 358 QTc: 483 Interpretive Statements ATRIAL FIBRILLATION WITH RAPID VENTRICULAR RESPONSE LATERAL INFARCT, AGE INDETERMINATE BORDERLINE ST-T WAVE ABNORMALITY- INFERIOR LEADS BASELINE ARTIFACT- I, III, AVR, AVL, AVF, V1-V3 ABNORMAL ECG All imaging and EKGs personally reviewed and interpreted. And unless stated otherwise agree with radiologic and cardiology interpretation. Assessment and Plan Assessment and plan (1) JAYLEN (acute kidney injury): Code(s): N17.9 - Acute kidney failure, unspecified Status: Acute (2) Acute dehydration: Code(s): E86.0 - Dehydration Status: Acute (3) Nausea vomiting and diarrhea: Code(s): R11.2 - Nausea with vomiting, unspecified; R19.7 - Diarrhea, unspecified Status: Acute (4) Superior mesenteric artery thrombosis: Code(s): K55.069 - Acute infarction of intestine, part and extent unspecified Status: Acute (5) Leukocytosis: Qualifiers: Leukocytosis type: leukemoid reaction Qualified Code(s): D72.823 - Leukemoid reaction Code(s): D72.829 - Elevated white blood cell count, unspecified Status: Acute (6) Lactic acidosis: Code(s): E87.20 - Acidosis, unspecified Status: Acute (7) GERD (gastroesophageal reflux disease): Qualifiers: Esophagitis presence: with esophagitis Esophagitis bleeding: without hemorrhage Qualified Code(s): K21.00 - Gastro-esophageal reflux disease with esophagitis, without bleeding Code(s): K21.9 - Gastro-esophageal reflux disease without esophagitis Status: Acute (8) Severe sepsis: Code(s): A41.9 - Sepsis, unspecified organism; R65.20 - Severe sepsis without septic shock Status: Acute (9) Tobacco dependence: Code(s): F17.200 - Nicotine dependence, unspecified, uncomplicated Status: Acute (10) Abnormal urinalysis: Code(s): R82.90 - Unspecified abnormal findings in urine Status: Acute (11) Hyponatremia: Code(s): E87.1 - Hypo-osmolality and hyponatremia Status: Acute Plan Patient presents with nausea vomiting and 2 episodes of loose stools. She meets criteria for severe sepsis with tachycardia, leukocytosis and persistent lactic acidosis despite 30 mL/kilos fluid bolus. However leukocytosis markedly improved after IV fluid hydration. The patient is at increased risk of infection given recent UTI and E coli bacteremia but patient's repeat blood cultures during her last hospitalization were negative. She is not having any fever. She has been started empiric antibiotic therapy with cefepime and vancomycin. Pharmacist to dose. Blood cultures and urine cultures have been obtained and are pending. Will continue IV fluid hydration normal saline at her 50 mL an hour. Will repeat CBC and electrolyte panel in a.m.. Will also repeat lactic acid level in a.m.. Patient does have anion gap acidosis likely secondary to lactic acid and acute dehydration. Patient was and uric for 24 hours prior to coming to the ER. Patient has had a small amount of urine output since admission. Will monitor strict I&O's. Patient did have a loose stool in the ER which was sent for testing is negative for C diff. Patient does have acute kidney injury most likely due to hypovolemia/dehydration. Will avoid nephrotoxic medications. CT demonstrated possible partial mesenteric thrombus. Patient states he has been taking her Eliquis at home as recent as the morning of the 2nd. The patient's symptoms seem more consistent with gastritis and esophagitis and less likely to be due to thrombus. Will stop heparin drip in a.m. and resume home Eliquis. Will consult GI for further recommendations. Will advance diet to clear liquids. Continue p.r.n. Zofran. Patient is having some softer blood pressures. Will hold patient's home antihypertensives. And will hold the patient's metformin given lactic acidosis. Will start the patient on Protonix 40 mg p.o. daily and Maalox. MEDICAL DECISION MAKING NARRATIVE -Spoke with the ED provider in detail regarding patient's evaluation, workup and management -Patient seen and examined at bedside -Collaborated with patient's nurse at the bedside in detail and addressed all concerns -Labs, electrolytes, radiology, investigations and test results reviewed -ED/Consult/Nursing/Ancilliary notes on the chart reviewed and appreciated -Spoke with patient at bedside and all questions were answered. Quality VTE Prophylaxis VTE prophylaxis: pharmacologic ordered (Resume home Eliquis.) Hospitalist [facility] Advance Care Plan I have confirmed that the patient's Advanced Care Plan is present, code status is documented, or surrogate decision maker is listed in patient medical record.: Yes Medication Reconciliation I have utilized all available resources to obtain, update and review the patients current medications (includes all prescriptions, OTC, herbals, cannabis, and nutritional supplements).: Yes
[2025-06-16] MEDS: MORPHINE SULFATE (*CRX) 2 MG/ML INJ IV PUSH (22:27)
[2025-06-16 23:29] VITALS: BP 99/63; PULSE 96; RESP 20; TEMP 36.4; O2SAT 99
[2025-06-17] VITALS (17 sets, daily range): BP systolic 76–125; BP diastolic 42–81; PULSE 43–80; RESP 16–20; TEMP 36.4–36.7; O2SAT 97–100
[2025-06-17] MEDS: NICOTINE (*PBKC) 21 MG PATCH 1 PATCH TRANSDERM ×2 (00:22→09:15)
[2025-06-17] MEDS: ACETAMINOPHEN 325 MG TABLET 650 MG PO ×2 (02:25→22:10)
[2025-06-17] MEDS: SODIUM CHLORIDE 0.9% IV 1,000 ML 150 ML IV CONT ×3 (04:28→17:18)
[2025-06-17 04:49] LABS: Hematocrit 36.4 % (37.0-47.0); Hemoglobin 12.1 g/dL (12.0-15.0); Immature Granulocyte Percent A 1.7 % (0-0.5); Lymphocytes Absolute Auto 2.35 K/mm3 (0.9-3.2); Mean Corpuscular HGB Conc 33.2 g/dl (32-36); Mean Corpuscular Hemoglobin 29.4 pg (26-34); Mean Corpuscular Volume 88.3 fl (80-100); Nucleated Red Blood Cells Absolute Auto 0.000 K/mm3 (0.0-0.012); Nucleated Red Blood Cells Perc 0.0 % (0.0-0.2); Platelet Count Result 200 k/mm3 (150-375); Red Blood Count 4.12 M/mm3 (4.2-5.4); White Blood Count 9.0 K/mm3 (4.5-10.0)
[2025-06-17 05:17] LABS: Estimated CRCL calculation 42 ml/min; Estimated Glomerular Filt Rate 45
[2025-06-17] MEDS: SODIUM CHLORIDE 0.9% IV 1,000 ML 999 ML IV CONT (05:23)
[2025-06-17 05:34] LABS: Anisocytosis 1+
[2025-06-17 05:35] LABS: Schistocytes None Seen
--- NOTE | 2025-06-17 08:31 | P.PNIM_ITS ---
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 - Acute infarction of intestine, part and extent unspecified Status: Acute (5) Leukocytosis: Qualifiers: Leukocytosis type: leukemoid reaction Qualified Code(s): D72.823 - Leukemoid reaction Code(s): D72.829 - Elevated white blood cell count, unspecified Status: Acute (6) Lactic acidosis: Code(s): E87.20 - Acidosis, unspecified Status: Acute (7) GERD (gastroesophageal reflux disease): Qualifiers: Esophagitis bleeding: without hemorrhage Esophagitis presence: with esophagitis Qualified Code(s): K21.00 - Gastro-esophageal reflux disease with esophagitis, without bleeding Code(s): K21.9 - Gastro-esophageal reflux disease without esophagitis Status: Acute (8) Severe sepsis: Code(s): A41.9 - Sepsis, unspecified organism; R65.20 - Severe sepsis without septic shock Status: Acute (9) Tobacco dependence: Code(s): F17.200 - Nicotine dependence, unspecified, uncomplicated Status: Acute (10) Abnormal urinalysis: Code(s): R82.90 - Unspecified abnormal findings in urine Status: Acute (11) Hyponatremia: Code(s): E87.1 - Hypo-osmolality and hyponatremia Status: Acute Plan Patient presents with nausea vomiting and 2 episodes of loose stools. She meets criteria for severe sepsis with tachycardia, leukocytosis and persistent lactic acidosis despite 30 mL/kilos fluid bolus. However leukocytosis markedly improved after IV fluid hydration. The patient is at increased risk of infection given recent UTI and E coli bacteremia but patient's repeat blood cultures during her last hospitalization were negative. She is not having any fever. She has been started empiric antibiotic therapy with cefepime and vancomycin. Pharmacist to dose. Blood cultures and urine cultures have been obtained and are pending. Will continue IV fluid hydration normal saline at her 50 mL an hour. Will repeat CBC and electrolyte panel in a.m.. Will also repeat lactic acid level in a.m.. Patient does have anion gap acidosis likely secondary to lactic acid and acute dehydration. Patient was and uric for 24 hours prior to coming to the ER. Patient has had a small amount of urine output since admission. Will monitor strict I&O's. Patient did have a loose stool in the ER which was sent for testing is negative for C diff. Patient does have acute kidney injury most likely due to hypovolemia/dehydration. Will avoid nephrotoxic medications. CT demonstrated possible partial mesenteric thrombus. Patient states he has been taking her Eliquis at home as recent as the morning of the . The patient's symptoms seem more consistent with gastritis and esophagitis and less likely to be due to thrombus. Will stop heparin drip in a.m. and resume home Eliquis. Will consult GI for further recommendations. Will advance diet to clear liquids. Continue p.r.n. Zofran. Patient is having some softer blood pressures. Will hold patient's home antihypertensives. And will hold the patient's metformin given lactic acidosis. Will start the patient on Protonix 40 mg p.o. daily and Maalox. Subjective Date/time seen: 06/17/25 08:31 Interval history: Resting comfortable. Exam Narrative: Weight 83 kg BMI 34.6 Const: Other: No acute distress, obese, appears older than stated age HENMT: Other: Scabbed ulcer to the right upper lip, mucous membranes are tacky, crowded posterior oropharynx, edentulous in upper and lower jaw Eyes: Other: Pupils are equal and reactive, bilateral cataracts noted, no conjunctival pallor, no scleral icterus, extraocular movements intact Neck: Other: No lymphadenopathy, no JVD, trachea midline Resp: Other: Decreased breath sounds posteriorly, no increased work of breathing, no tachypnea Cardio: Other: Distant heart sounds, no murmur, sinus tachycardia with rate in the mid 90s. GI: Other: Soft, nontender, slightly distended, normoactive bowel sounds Back/Spine/Pelvis: Other: Moderate thoracic kyphosis Skin: Other: No pallor, non jaundice Neuro: Other: Alert oriented, speech is clear, no facial asymmetry, cranial nerves 2-12 appear to be grossly intact, no localizing neurologic deficits noted during the course of conversation Extrem: Other: No clubbing, cyanosis or edema Psych: Other: Appropriate mood and affect, pleasant and cooperative, judgment and insight intact Objective Data Vital Signs Vital Signs: Vital Signs - 24 hr 06/16/25 16:11 06/16/25 18:25 06/16/25 18:25 Temperature 97.5 F L Pulse Rate 111 H 109 H 102 H Respiratory Rate 19 15 Blood Pressure 146/98 H 127/78 Pulse Oximetry 97 100 Oxygen Delivery Room Air 06/16/25 21:24 06/16/25 21:29 06/16/25 22:00 Temperature 97.6 F Pulse Rate 107 H 99 Respiratory Rate 20 Blood Pressure 91/67 L Pulse Oximetry 97 100 Oxygen Delivery Room Air 06/16/25 22:00 06/16/25 23:29 06/16/25 23:39 Temperature 97.6 F Pulse Rate 96 Respiratory Rate 20 Blood Pressure 99/63 L Pulse Oximetry 99 Oxygen Delivery Room Air Room Air 06/17/25 00:00 06/17/25 02:00 06/17/25 03:47 Temperature Pulse Rate 72 80 Respiratory Rate Blood Pressure Pulse Oximetry Oxygen Delivery Room Air 06/17/25 04:00 06/17/25 04:45 06/17/25 04:45 Temperature 97.7 F Pulse Rate 75 70 Respiratory Rate 20 Blood Pressure 86/46 L 76/42 L Pulse Oximetry 98 Oxygen Delivery 06/17/25 06:00 06/17/25 06:31 06/17/25 07:40 Temperature 97.6 F Pulse Rate 67 72 Respiratory Rate 16 Blood Pressure 102/57 L 107/60 Pulse Oximetry 100 Oxygen Delivery Intake/Output Intake/Output: Intake & Output 06/14/25 06/15/25 06/16/25 06/17/25 23:59 23:59 23:59 23:59 Intake Total 2900 2292 Output Total 250 650 Balance 2650 1642 Meds/Results Medications: Active Medications Generic Name Dose Route Start Last Admin Trade Name Freq PRN Reason Stop Dose Admin Acetaminophen 650 mg 06/16/25 20:02 06/17/25 02:25 Acetaminophen 325 Mg Tablet PO 650 mg Q4H PRN Administration Mild Pain (1-3) or Fever Hydrocodone Bitart/Acetaminophen 1 tab 06/17/25 00:23 Hydrocodone/Acetaminophen (*Crx) 7.5-325 Mg Tablet PO Q6H PRN Pain 4-10 Al Hydrox/Mg Hydrox/Simethicone 30 ml 06/17/25 01:00 Mag Hydrox/Al Hydrox/Simeth 30 Ml Udc PO Q6H PRN Indigestion Albuterol 2.5 mg 06/17/25 00:19 Albuterol Sulfate Neb 2.5 Mg/3 Ml Inh INHALATION Q6HRT PRN shortness of breath or wheezing Apixaban 5 mg 06/17/25 09:00 Apixaban 5 Mg Tablet PO Q12HR [facility] Bupropion HCl 150 mg 06/17/25 09:00 Bupropion Hcl Sr (12 Hr) 150 Mg Tab PO DAILY [facility] Clonazepam 0.25 mg 06/17/25 00:23 Clonazepam (*Crx) 0.25 Mg Tablet PO TID PRN anxiety Clopidogrel Bisulfate 75 mg 06/17/25 09:00 Clopidogrel Bisulfate 75 Mg Tablet PO DAILY [facility] Docusate Sodium 100 mg 06/17/25 09:00 Docusate Sodium 100 Mg Capsule PO Q12HR [facility] Ezetimibe 10 mg 06/17/25 09:00 Ezetimibe 10 Mg Tablet PO DAILY [facility] Fenofibrate 145 mg 06/17/25 09:00 Fenofibrate Nanocrystallized 145 Mg Tablet PO QAM [facility] Fluticasone Propionate 1 spray 06/17/25 09:00 Fluticasone Propionate 0.05% Na Spr 16 Gm Btl (*Bkc) NASAL DAILY [facility] Gabapentin 300 mg 06/17/25 09:00 Gabapentin 300 Mg Capsule PO TID [facility] Heparin Sodium (Porcine) 5,000 units 06/16/25 19:57 06/16/25 21:02 Heparin Sodium 5,000 Units/Ml Vial IV PUSH 5,000 units PRN PRN Administration aPTT less than 55 seconds Heparin Sodium (Porcine) 2,500 units 06/16/25 19:57 Heparin Sodium 5,000 Units/Ml Vial IV PUSH PRN PRN aPTT 55 - 70 seconds Sodium Chloride 1,000 mls @ 150 mls/hr 06/16/25 20:05 06/17/25 04:28 Normal Saline Iv IV CONT 150 mls/hr .Q6H40M [facility] Administration Loratadine 10 mg 06/17/25 09:00 Loratadine 10 Mg Tablet PO QAM [facility] Miscellaneous Information 1 each 06/17/25 00:01 Cromolyn 4 % Drops Is Nonform, Can Pt Bring From Home? Or Possible Substitution With Olopa XX 07/17/25 00:00 CLARIFY [facility] Montelukast Sodium 10 mg 06/17/25 21:00 Montelukast Sodium 10 Mg Tablet PO QHS LANCE Morphine Sulfate 2 mg 06/16/25 20:02 06/16/25 22:27 Morphine Sulfate (*Crx) 2 Mg/Ml Inj IV PUSH 2 mg Q2H PRN Administration Pain Rated 7-10 Nicotine 1 patch 06/17/25 00:00 06/17/25 00:22 Nicotine (*Pbkc) 21 Mg Patch TRANSDERM 1 patch DAILY [facility] Administration Non-Formulary Medication 1 drop 06/17/25 09:00 Cromolyn EACH EYE 07/17/25 08:59 DAILY [facility] Ondansetron HCl 4 mg 06/16/25 20:02 Ondansetron Inj 4 Mg/2 Ml Vial IV PUSH Q4H PRN Nausea Pantoprazole Sodium 40 mg 06/17/25 09:00 Pantoprazole 40 Mg Tablet PO QAM [facility] Sotalol HCl 120 mg 06/17/25 09:00 Sotalol Hcl 40 Mg Tablet PO Q12HR [facility] Triamcinolone Acetonide 1 applic 06/17/25 09:00 Triamcinolone Acet 0.5% Cream 15 Gm Tube TOPICAL BID [facility] Vancomycin HCl 1 each 06/16/25 18:05 Vancomycin For Acute Kidney Injury IVPB PRN PRN Vancomycin Protocol Radiology Results: ITS Impressions Chest X-Ray 06/16/25 18:10 IMPRESSION: No acute cardiopulmonary process. Abdomen/Pelvis CT 06/16/25 18:41 IMPRESSION: Hepatomegaly with steatosis. Mild esophagitis/gastritis. 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 New small nonocclusive thrombi in the proximal branch points of the SMA, associated with stable atherosclerotic plaque. No concerning bowel changes to suggest ischemia. Labs Labs: Laboratory Results - last 24 hr 06/16/25 06/16/25 06/16/25 16:51 17:09 20:17 WBC 20.5 H 13.2 H RBC 5.49 H 4.61 Hgb 15.9 H D 13.3 Hct 46.5 40.5 MCV 84.7 87.9 MCH 29.0 28.9 MCHC 34.2 32.8 RDW 13.0 13.1 Plt Count 377 H D 270 MPV 9.9 9.9 Immature Gran % (Auto) Not Reportable 1.5 H Neut % (Auto) Not Reportable 73.5 H Lymph % (Auto) Not Reportable 16.3 L Nye % (Auto) Not Reportable 7.8 Eos % (Auto) Not Reportable 0.5 Baso % (Auto) Not Reportable 0.4 Lymph # (Auto) Not Reportable 2.15 Nye # (Auto) Not Reportable 1.0 H Eos # (Auto) Not Reportable 0.1 Baso # (Auto) Not Reportable 0.1 Abs Immat Gran (auto) Not Reportable 0.20 H Absolute Neuts (auto) Not Reportable 9.7 H Absolute Nucleated RBC Not Reportable 0.000 Total Counted 100 Neutrophils % (Manual) 81 H Band Neutrophils % 0 Lymphocytes % (Manual) 14.0 L Monocytes % (Manual) 4 Eosinophils % (Manual) 1 Nucleated RBC % Not Reportable 0.0 Abs Neuts (Manual) 16.60 H Abs Lymphs (Manual) 2.87 Abs Monocytes (Manual) 0.82 Absolute Eos (Manual) 0.20 Atypical Lymphocytes Platelet Estimate Adequate Anisocytosis Schistocytes None seen PT 16.1 H 17.2 H INR 1.3 1.4 APTT 32.0 31.7 Sodium 132 L Potassium 3.4 Chloride 99 Carbon Dioxide 17 L Anion Gap 16 H BUN 41 H D Creatinine 2.04 H Estim Creat Clear Calc 26 Estimated GFR 25 L Glucose 197 H Lactic Acid 3.1 H 2.2 H Calcium 9.7 Total Bilirubin 0.6 AST 29 ALT 20 Alkaline Phosphatase 79 C-Reactive Protein 1.3 H Total Protein 8.1 Albumin 4.2 Urine Color Yellow Urine Appearance Cloudy H Urine pH 5.0 Ur Specific [place] 1.023 Urine Protein 3+ H Urine Glucose (UA) Trace H Urine Ketones Trace H Ur Blood (Man) Negative Urine Nitrate Negative Urine Bilirubin Negative Urine Urobilinogen 0.2 Leukocyte Esterase Rfl 1+ H Urine RBC 0-2 Urine WBC 11-20 H Ur Squamous Epith Cells Many H Urine Bacteria None seen Urine Casts >20 Hyaline Casts Present C. difficile (PCR) Negative 06/17/25 04:19 WBC 9.0 RBC 4.12 L Hgb 12.1 Hct 36.4 L MCV 88.3 MCH 29.4 MCHC 33.2 RDW 12.9 Plt Count 200 MPV 9.8 Immature Gran % (Auto) 1.7 H Neut % (Auto) 61.7 Lymph % (Auto) 26.1 Nye % (Auto) 8.2 Eos % (Auto) 1.7 Baso % (Auto) 0.6 Lymph # (Auto) 2.35 Nye # (Auto) 0.7 H Eos # (Auto) 0.2 Baso # (Auto) 0.1 Abs Immat Gran (auto) 0.15 H Absolute Neuts (auto) 5.6 Absolute Nucleated RBC 0.000 Total Counted Neutrophils % (Manual) Band Neutrophils % Not Reportable Lymphocytes % (Manual) Monocytes % (Manual) Eosinophils % (Manual) Nucleated RBC % 0.0 Abs Neuts (Manual) Abs Lymphs (Manual) Abs Monocytes (Manual) Absolute Eos (Manual) Atypical Lymphocytes Present Platelet Estimate Adequate Anisocytosis 1+ Schistocytes None seen PT INR APTT Sodium Potassium Chloride Carbon Dioxide Anion Gap BUN Creatinine 1.21 H Estim Creat Clear Calc 42 Estimated GFR 45 L Glucose Lactic Acid Calcium Total Bilirubin AST ALT Alkaline Phosphatase C-Reactive Protein Total Protein Albumin Urine Color Urine Appearance Urine pH Ur Specific [place] Urine Protein Urine Glucose (UA) Urine Ketones Ur Blood (Man) Urine Nitrate Urine Bilirubin Urine Urobilinogen Leukocyte Esterase Rfl Urine RBC Urine WBC Ur Squamous Epith Cells Urine Bacteria Urine Casts Hyaline Casts C. difficile (PCR) Hospitalist MIPS Advance Care Plan I have confirmed that the patient's Advanced Care Plan is present, code status is documented, or surrogate decision maker is listed in patient medical record.: Yes Medication Reconciliation I have utilized all available resources to obtain, update and review the patients current medications (includes all prescriptions, OTC, herbals, cannabis, and nutritional supplements).: Yes
[2025-06-17] MEDS: DOCUSATE SODIUM 100 MG CAPSULE PO (09:14)
[2025-06-17] MEDS: EZETIMIBE 10 MG TABLET PO (09:14)
[2025-06-17] MEDS: CLOPIDOGREL BISULFATE 75 MG TABLET PO (09:14)
[2025-06-17] MEDS: APIXABAN 5 MG TABLET PO ×2 (09:14→21:25)
[2025-06-17] MEDS: FENOFIBRATE NANOCRYSTALLIZED 145 MG TABLET PO (09:14)
[2025-06-17] MEDS: LORATADINE 10 MG TABLET PO (09:14)
[2025-06-17] MEDS: PANTOPRAZOLE 40 MG TABLET PO (09:14)
[2025-06-17] MEDS: GABAPENTIN 300 MG CAPSULE PO ×3 (09:14→17:17)
[2025-06-17] MEDS: buPROPion HCL SR (12 HR) 150 MG TAB PO (09:14)
[2025-06-17] MEDS: FLUTICASONE PROPIONATE 0.05% NA SPR 16 GM BTL (*BKC) 1 SPRAY NASAL (09:14)
[2025-06-17] MEDS: HYDROcodone/acetaminophen (*CRX) 7.5-325 MG TABLET 1 TAB PO ×2 (10:20→18:04)
[2025-06-17] MEDS: clonazePAM (*CRX) 0.25 MG TABLET PO ×2 (10:21→21:36)
[2025-06-17] MEDS: OLOPATADINE 0.1% OPHTH SOLN 5 ML BTL 1 DROP EACH EYE ×2 (13:16→22:05)
[2025-06-17] MEDS: TRIAMCINOLONE ACET 0.5% CREAM 15 GM TUBE 1 APPLIC TOPICAL ×2 (13:17→17:18)
--- NOTE | 2025-06-17 19:47 | PC.NURSE ---
This patient, Rody Zaidi, was transferred to [facility] on 06/17/25 at 1947. Personal belongings sent with patient. Report given to Alexandra URIAS. Appropriate documentation sent with patient.
[2025-06-17] MEDS: MONTELUKAST SODIUM 10 MG TABLET PO (21:32)
[2025-06-17] MEDS: VANCOMYCIN 1,250 MG/NS 250 ML 1,250 MG/250 ML BAG 166.67 MG IVPB (23:03)
[2025-06-18] VITALS (11 sets, daily range): BP systolic 107–151; BP diastolic 69–90; PULSE 67–87; RESP 18–22; TEMP 36.4–36.7; O2SAT 99–100
[2025-06-18] MEDS: SODIUM CHLORIDE 0.9% IV 1,000 ML 150 ML IV CONT ×4 (01:47→21:30)
[2025-06-18 06:20] LABS: Hematocrit 31.5 % (37.0-47.0); Hemoglobin 10.2 g/dL (12.0-15.0); Mean Corpuscular HGB Conc 32.4 g/dl (32-36); Mean Corpuscular Hemoglobin 29.3 pg (26-34); Mean Corpuscular Volume 90.5 fl (80-100); Platelet Count Result 154 k/mm3 (150-375); Red Blood Count 3.48 M/mm3 (4.2-5.4); White Blood Count 4.8 K/mm3 (4.5-10.0)
[2025-06-18 06:38] LABS: Alanine Aminotransferase 17 U/L (6-35); Albumin Level 2.7 g/dL (3.5-5.1); Alkaline Phosphatase 54 U/L (38-126); Anion Gap 5 mmol/L (4-12); Aspartate Amino Transferase 19 U/L (14-36); Bilirubin,Total < 0.1 mg/dL (0.2-1.3); Blood Urea Nitrogen 13 mg/dL (7-17); Calcium 7.6 mg/dL (8.4-10.2); Carbon Dioxide 18 mmol/L (22-30); Chloride 117 mmol/L (98-107); Estimated CRCL calculation 58 ml/min; Estimated Glomerular Filt Rate > 60; Glucose 115 mg/dL (65-110); Potassium 3.1 mmol/L (3.4-5.0); Sodium 140 mmol/L (137-145); Total Protein 5.2 g/dL (6.3-8.2)
--- NOTE | 2025-06-18 08:00 | P.PNIM_ITS ---
Progress Note: A&P Assessment and Plan (1) JAYLEN (acute kidney injury): Code(s): N17.9 - Acute kidney failure, unspecified Status: Acute Assessment and Plan: Back to Cr Baseline .88 Possible due to dehydration atheroembolic disease(?) - no evidence at this time Will consider renal ultrasound if kidney functions were sent Will consider CPK, urine electrolytes and eosinophils s/p trial of IVFs medical management initiated for hypokalemia follow trend of repeat labs and UOP (2) Acute dehydration: Code(s): E86.0 - Dehydration Status: Acute Assessment and Plan: On NSS at 150 mL/hour (3) Nausea vomiting and diarrhea: Code(s): R11.2 - Nausea with vomiting, unspecified; R19.7 - Diarrhea, unspecified Status: Acute Assessment and Plan: C diff negative Zofran p.r.n. Protonix 40 mg p.o. q.d. (4) Superior mesenteric artery thrombosis: Code(s): K55.069 - Acute infarction of intestine, part and extent unspecified Status: Acute Assessment and Plan: CT demonstrated possible partial mesenteric thrombus GI consulted and following recommendation Continue Eliquis and Plavix (5) Leukocytosis: Qualifiers: Leukocytosis type: leukemoid reaction Qualified Code(s): D72.823 - Leukemoid reaction Code(s): D72.829 - Elevated white blood cell count, unspecified Status: Acute Assessment and Plan: Previous history of UTI and E coli bacteremia remains afebrile no signs of infectious process Discontinue cefepime and vancomycin Started on ceftriaxone (6) Lactic acidosis: Code(s): E87.20 - Acidosis, unspecified Status: Acute Assessment and Plan: Resolved (7) GERD (gastroesophageal reflux disease): Qualifiers: Esophagitis bleeding: without hemorrhage Esophagitis presence: with esophagitis Qualified Code(s): K21.00 - Gastro-esophageal reflux disease with esophagitis, without bleeding Code(s): K21.9 - Gastro-esophageal reflux disease without esophagitis Status: Acute Assessment and Plan: Managed as above (8) Severe sepsis: Code(s): A41.9 - Sepsis, unspecified organism; R65.20 - Severe sepsis without septic shock Status: Acute Assessment and Plan: Managed as above (9) Tobacco dependence: Code(s): F17.200 - Nicotine dependence, unspecified, uncomplicated Status: Acute Assessment and Plan: Nicotine patch (10) Abnormal urinalysis: Code(s): R82.90 - Unspecified abnormal findings in urine Status: Acute (11) Hyponatremia: Code(s): E87.1 - Hypo-osmolality and hyponatremia Status: Acute Assessment and Plan: Asymptomatic Does not require treatment (12) Bradycardia: Code(s): R00.1 - Bradycardia, unspecified Status: Acute Assessment and Plan: Hold sotalol Order EKG Order TSH Cardiology consulted Subjective Date/time seen: 08/04/25 08:00 Interval history: Interval history:64-year-old female with a past medical history of bipolar disorder, COPD with continued tobacco use, diverticulitis, GERD, gastroparesis, paroxysmal atrial fibrillation, peripheral artery disease and type 2 diabetes mellitus and recurrent urinary tract infections with recent hospitalization with sepsis E coli pyelonephritis, E coli bacteremia due to UTI 06/08/2025 through 06/12/2025 who presented to the ER with recurrent nausea and vomiting. 06/18: Patient is currently being treated for possible UTI, esophagitis. P atient lately having bradycardia, holding sotalol and consulted Cardiology. Ordered TSH and EKG. Reviewed electrolytes Exam Narrative: Weight 83 kg BMI 34.6 Const: Other: No acute distress, obese, appears older than stated age HENMT: Other: Scabbed ulcer to the right upper lip, mucous membranes are tacky, crowded posterior oropharynx, edentulous in upper and lower jaw Eyes: Other: Pupils are equal and reactive, bilateral cataracts noted, no conjunctival pallor, no scleral icterus, extraocular movements intact Neck: Other: No lymphadenopathy, no JVD, trachea midline Resp: Other: Decreased breath sounds posteriorly, no increased work of breathing, no tachypnea Cardio: Other: Distant heart sounds, no murmur, sinus tachycardia with rate in the mid 90s. GI: Other: Soft, nontender, slightly distended, normoactive bowel sounds Back/Spine/Pelvis: Other: Moderate thoracic kyphosis Skin: Other: No pallor, non jaundice Neuro: Other: Alert oriented, speech is clear, no facial asymmetry, cranial nerves 2-12 appear to be grossly intact, no localizing neurologic deficits noted during the course of conversation Extrem: Other: No clubbing, cyanosis or edema Psych: Other: Appropriate mood and affect, pleasant and cooperative, judgment and insight intact Objective Data Vital Signs Vital Signs: Vital Signs - 24 hr 06/17/25 09:29 06/17/25 10:00 06/17/25 12:00 Temperature 97.5 F L Pulse Rate 43 L 64 69 Respiratory Rate 18 Blood Pressure 106/60 Pulse Oximetry 99 Oxygen Delivery 06/17/25 12:00 06/17/25 14:00 06/17/25 15:35 Temperature 97.7 F Pulse Rate 63 68 61 Respiratory Rate 16 Blood Pressure 125/81 Pulse Oximetry 100 Oxygen Delivery 06/17/25 16:00 06/17/25 20:00 06/17/25 21:52 Temperature 98.0 F Pulse Rate 55 L 74 Respiratory Rate 20 Blood Pressure 97/63 L Pulse Oximetry 99 Oxygen Delivery Room Air 06/17/25 22:02 06/17/25 22:24 06/18/25 00:00 Temperature Pulse Rate 63 73 Respiratory Rate Blood Pressure Pulse Oximetry 97 Oxygen Delivery Room Air 06/18/25 04:00 06/18/25 06:00 Temperature 98.1 F Pulse Rate 70 75 Respiratory Rate 20 Blood Pressure 107/69 Pulse Oximetry 100 Oxygen Delivery Intake/Output Intake/Output: Intake & Output 06/15/25 06/16/25 06/17/25 06/18/25 23:59 23:59 23:59 23:59 Intake Total 2900 6554 2100 Output Total 250 2750 Balance 2650 3804 2100 Meds/Results Medications: Active Medications Generic Name Dose Route Start Last Admin Trade Name Freq PRN Reason Stop Dose Admin Acetaminophen 650 mg 06/16/25 20:02 06/17/25 22:10 Acetaminophen 325 Mg Tablet PO 650 mg Q4H PRN Administration Mild Pain (1-3) or Fever Hydrocodone Bitart/Acetaminophen 1 tab 06/17/25 00:23 06/17/25 18:04 Hydrocodone/Acetaminophen (*Crx) 7.5-325 Mg Tablet PO 1 tab Q6H PRN Administration Pain 4-10 Al Hydrox/Mg Hydrox/Simethicone 30 ml 06/17/25 01:00 Mag Hydrox/Al Hydrox/Simeth 30 Ml Udc PO Q6H PRN Indigestion Albuterol 2.5 mg 06/17/25 00:19 Albuterol Sulfate Neb 2.5 Mg/3 Ml Inh INHALATION Q6HRT PRN shortness of breath or wheezing Apixaban 5 mg 06/17/25 09:00 06/17/25 21:25 Apixaban 5 Mg Tablet PO 5 mg Q12HR LANCE Administration Bupropion HCl 150 mg 06/17/25 09:00 06/17/25 09:14 Bupropion Hcl Sr (12 Hr) 150 Mg Tab PO 150 mg DAILY LANCE Administration Clonazepam 0.25 mg 06/17/25 00:23 06/17/25 21:36 Clonazepam (*Crx) 0.25 Mg Tablet PO 0.25 mg TID PRN Administration anxiety Clopidogrel Bisulfate 75 mg 06/17/25 09:00 06/17/25 09:14 Clopidogrel Bisulfate 75 Mg Tablet PO 75 mg DAILY LANCE Administration Dextrose 12.5 gm 06/17/25 14:10 Dextrose 50% 25 Gm/50 Ml Syringe IV PUSH PRN PRN Hypoglycemia Protocol Docusate Sodium 100 mg 06/17/25 22:30 06/17/25 22:35 Docusate Sodium 100 Mg Capsule PO Not Given Q12HR LANCE Ezetimibe 10 mg 06/17/25 09:00 06/17/25 09:14 Ezetimibe 10 Mg Tablet PO 10 mg DAILY LANCE Administration Fenofibrate 145 mg 06/17/25 09:00 06/17/25 09:14 Fenofibrate Nanocrystallized 145 Mg Tablet PO 145 mg QAM LANCE Administration Fluticasone Propionate 1 spray 06/17/25 09:00 06/17/25 09:14 Fluticasone Propionate 0.05% Na Spr 16 Gm Btl (*Bkc) NASAL 1 spray DAILY LANCE Administration Gabapentin 300 mg 06/17/25 09:00 06/17/25 17:17 Gabapentin 300 Mg Capsule PO 300 mg TID LANCE Administration Glucagon 1 mg 06/17/25 14:10 Glucagon For Inj 1 Mg Vial IM PRN PRN Hypoglycemia Protocol Glucose 15 gm 06/17/25 14:10 Glucose Oral Gel 15 Gm Of Glucse In 37.5 Gm Tube PO PRN PRN Hypoglycemia Protocol Heparin Sodium (Porcine) 5,000 units 06/16/25 19:57 06/16/25 21:02 Heparin Sodium 5,000 Units/Ml Vial IV PUSH 5,000 units PRN PRN Administration aPTT less than 55 seconds Heparin Sodium (Porcine) 2,500 units 06/16/25 19:57 Heparin Sodium 5,000 Units/Ml Vial IV PUSH PRN PRN aPTT 55 - 70 seconds Sodium Chloride 1,000 mls @ 150 mls/hr 06/16/25 20:05 06/18/25 01:47 Normal Saline Iv IV CONT 150 mls/hr .Q6H40M LANCE Administration Dextrose 1,000 mls @ 100 mls/hr 06/17/25 14:10 Dextrose 5% 1,000 Ml IVPB PRN PRN Hypoglycemia Protocol Insulin Aspart 2 - 5 units 06/17/25 17:00 06/17/25 17:18 Insulin Aspart (*Bkc) 100 Units/Ml SUB-Q Not Given TIDWM [facility] Protocol Insulin Aspart 1 - 2 units 06/17/25 21:00 06/17/25 21:05 Insulin Aspart (*Bkc) 100 Units/Ml SUB-Q Not Given HS [facility] Protocol Loratadine 10 mg 06/17/25 09:00 06/17/25 09:14 Loratadine 10 Mg Tablet PO 10 mg QAM LANCE Administration Montelukast Sodium 10 mg 06/17/25 21:00 06/17/25 21:32 Montelukast Sodium 10 Mg Tablet PO 10 mg QHS LANCE Administration Morphine Sulfate 2 mg 06/16/25 20:02 06/16/25 22:27 Morphine Sulfate (*Crx) 2 Mg/Ml Inj IV PUSH 2 mg Q2H PRN Administration Pain Rated 7-10 Nicotine 1 patch 06/17/25 00:00 06/17/25 09:15 Nicotine (*Pbkc) 21 Mg Patch TRANSDERM 1 patch DAILY LANCE Administration Olopatadine HCl 1 drop 06/17/25 10:20 06/17/25 22:05 Olopatadine 0.1% Ophth Soln 5 Ml Btl EACH EYE 1 drop Q12HR LANCE Administration Ondansetron HCl 4 mg 06/16/25 20:02 Ondansetron Inj 4 Mg/2 Ml Vial IV PUSH Q4H PRN Nausea Pantoprazole Sodium 40 mg 06/17/25 09:00 06/17/25 09:14 Pantoprazole 40 Mg Tablet PO 40 mg QAM [facility] Administration Sotalol HCl 120 mg 06/17/25 09:00 06/17/25 22:24 Sotalol Hcl 40 Mg Tablet PO Not Given Q12HR [facility] Triamcinolone Acetonide 1 applic 06/17/25 09:00 06/17/25 17:18 Triamcinolone Acet 0.5% Cream 15 Gm Tube TOPICAL 1 applic BID LANCE Administration Vancomycin HCl 1 each 06/16/25 18:05 Vancomycin For Acute Kidney Injury IVPB PRN PRN Vancomycin Protocol Radiology Results: ITS Impressions Chest X-Ray 06/16/25 18:10 IMPRESSION: No acute cardiopulmonary process. Abdomen/Pelvis CT 06/16/25 18:41 IMPRESSION: Hepatomegaly with steatosis. Mild esophagitis/gastritis. 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 New small nonocclusive thrombi in the proximal branch points of the SMA, associated with stable atherosclerotic plaque. No concerning bowel changes to suggest ischemia. Labs Labs: Laboratory Results - last 24 hr 06/17/25 06/17/25 06/17/25 16:13 20:32 20:44 WBC RBC Hgb Hct MCV MCH MCHC RDW Plt Count MPV Sodium Potassium Chloride Carbon Dioxide Anion Gap BUN Creatinine Estim Creat Clear Calc Estimated GFR Glucose POC Capillary Glucose 92 126 H Calcium Total Bilirubin AST ALT Alkaline Phosphatase Total Protein Albumin Random Vancomycin 6.2 L 06/18/25 06/18/25 05:29 07:35 WBC 4.8 RBC 3.48 L Hgb 10.2 L Hct 31.5 L MCV 90.5 MCH 29.3 MCHC 32.4 RDW 13.1 Plt Count 154 MPV 10.1 Sodium 140 Potassium 3.1 L Chloride 117 H Carbon Dioxide 18 L Anion Gap 5 BUN 13 D Creatinine 0.88 Estim Creat Clear Calc 58 Estimated GFR > 60 Glucose 115 H POC Capillary Glucose 112 H Calcium 7.6 L Total Bilirubin < 0.1 L AST 19 ALT 17 Alkaline Phosphatase 54 Total Protein 5.2 L Albumin 2.7 L Random Vancomycin Hospitalist MIPS Advance Care Plan I have confirmed that the patient's Advanced Care Plan is present, code status is documented, or surrogate decision maker is listed in patient medical record.: Yes Medication Reconciliation I have utilized all available resources to obtain, update and review the patients current medications (includes all prescriptions, OTC, herbals, cannabis, and nutritional supplements).: Yes
--- NOTE | 2025-06-18 08:43 | ECG_ITS ---
Test Date: 2025-06-18 09:18:49 Measurements Intervals [place] Rate: 64 P: 17 DE: 160 QRS: 15 QRSD: 97 T: -22 QT: 426 QTc: 441 Interpretive Statements SINUS RHYTHM HIGH LATERAL MYOCARDIAL INFARCTION , PROBABLY OLD BORDERLINE ST-T WAVE ABNORMALITY- ANT/INF LEADS ABNORMAL ECG Compared to ECG 06/16/2025 16:33:40 Atrial fibrillation no longer present Electronically Signed On 06-18-2025 09:22:06 CDT by Erik Armstrong D.O.
[2025-06-18] MEDS: POTASSIUM CHLORIDE 20 MEQ ER TABLET 40 MEQ PO (08:44)
[2025-06-18] MEDS: APIXABAN 5 MG TABLET PO ×2 (08:45→20:53)
[2025-06-18] MEDS: FENOFIBRATE NANOCRYSTALLIZED 145 MG TABLET PO (08:45)
[2025-06-18] MEDS: LORATADINE 10 MG TABLET PO (08:46)
[2025-06-18] MEDS: GABAPENTIN 300 MG CAPSULE PO ×3 (08:46→16:19)
[2025-06-18] MEDS: CLOPIDOGREL BISULFATE 75 MG TABLET PO (08:46)
[2025-06-18] MEDS: PANTOPRAZOLE 40 MG TABLET PO (08:46)
[2025-06-18] MEDS: NICOTINE (*PBKC) 21 MG PATCH 1 PATCH TRANSDERM (08:46)
[2025-06-18] MEDS: buPROPion HCL SR (12 HR) 150 MG TAB PO (08:46)
[2025-06-18] MEDS: EZETIMIBE 10 MG TABLET PO (08:46)
[2025-06-18] MEDS: OLOPATADINE 0.1% OPHTH SOLN 5 ML BTL 1 DROP EACH EYE ×2 (08:47→20:54)
[2025-06-18] MEDS: FLUTICASONE PROPIONATE 0.05% NA SPR 16 GM BTL (*BKC) 1 SPRAY NASAL (08:47)
[2025-06-18] MEDS: clonazePAM (*CRX) 0.25 MG TABLET PO ×3 (08:50→20:53)
[2025-06-18] MEDS: HYDROcodone/acetaminophen (*CRX) 7.5-325 MG TABLET 1 TAB PO ×2 (08:51→15:32)
--- NOTE | 2025-06-18 08:55 | P.CONGI_ITS ---
Assessment and Plan Assessment and plan (1) Esophagitis: Code(s): K20.90 - Esophagitis, unspecified without bleeding Status: Acute (2) Gastritis: Qualifiers: Chronicity: chronic Gastritis bleeding: without bleeding Gastritis type: unspecified gastritis Qualified Code(s): K29.50 - Unspecified chronic gastritis without bleeding Code(s): K29.70 - Gastritis, unspecified, without bleeding Status: Acute (3) Gastroesophageal reflux disease: Qualifiers: Esophagitis bleeding: without hemorrhage Esophagitis presence: with esophagitis Qualified Code(s): K21.00 - Gastro-esophageal reflux disease with esophagitis, without bleeding Code(s): K21.9 - Gastro-esophageal reflux disease without esophagitis Status: Acute (4) Nausea vomiting and diarrhea: Code(s): R11.2 - Nausea with vomiting, unspecified; R19.7 - Diarrhea, unspecified Status: Acute (5) Superior mesenteric artery thrombosis: Code(s): K55.069 - Acute infarction of intestine, part and extent unspecified Status: Acute (6) Abnormal abdominal CT scan: Code(s): R93.5 - Abnormal findings on diagnostic imaging of other abdominal regions, including retroperitoneum Status: Acute (7) Hepatomegaly: Code(s): R16.0 - Hepatomegaly, not elsewhere classified Status: Acute (8) Normocytic anemia: Code(s): D64.9 - Anemia, unspecified Status: Acute Plan 1. Esophagitis/gastritis/nausea/vomiting: Last EGD 09/15/2023 showed erosive gastritis and Bx were negative for H-Pylori. Patient presented to the ER with complaints of nausea and vomiting. CT 06/16/2025 revealed mild esophagitis and gastritis. Patient was on Dexilant 30 mg daily prior to admission and starts that reflux was well controlled. Nausea and vomiting has resolved and she denies any GI complaints during visit. She states that prior to admission she was taking Pepto as needed and would have dark stools after taking Pepto but her stools were otherwise normal color. She states that diarrhea has resolved. C- Diff was negative 06/16. Denies regular use of NSAID's. * Continue PPI * Continue Dexilant outpatient * Patient advised to follow up outpatient with KATHERINE Pavon who she saw last year if her GI symptoms return 2. SMA thrombosis: Patient presented to the ER with complaints of abdominal pain and diarrhea. CT 06/16/2025 revealed new small nonocclusive thrombi in the proximal branch points of the SMA, associated with stable atherosclerotic plaque. No concerning bowel changes to suggest ischemia along with likely severe stenosis at the landing site of the right common iliac artery stent. Patient is already on assisted anticoagulants for Hx of A-Fib and CVA. Patient is currently on Eliquis, Plavix and Heparin and triple therapy is likely not needed for SMA findings. No symptoms of mesenteric ischemia or evidence of bowel compromise. Patient was last seen by vascular surgeon Dr. Jose A Clark at [facility] who placed her stent in her legs * Patient called to schedule a follow up visit with her vascular surgeon Dr. Jose A Clark at [facility] to follow up on severe stenosis of the right common iliac artery stent * Conservative management and risk factor modification recommended in asymptomatic patients with nonocclusive SMA thrombi. 3. Normocytic anemia: Labs today show WBC is 5, HGB 10, HCT 32, MCV 91 and platelets 154. Patient denies any signs of active GI bleeding. * Primary care team to follow H/H * no indication for inpatient endoscopic evaluation 4. Hepatomegaly and hepatic steatosis: Imaging showed hepatomegaly with steatosis. LFT's normal. Denies ETOH use but does have other risk factors including diabetes, HLD and BMI 37. * Follow up with GI outpatient Thank you very much for allowing me to share in the care of this very nice patient. This report may have been done utilizing a voice recognition system. Attempts have been made to correct errors. However, there may be uncorrected grammatical, spelling, and recognition errors present. GI Consult Note Consult date/time: 06/18/25 08:55 Reason for consult: esophagitis/gastritis and SMA thrombosis HPI: Rody Zaidi is a 64 year old female with PMSH , cardiac catheterization, history of bladder cancer, left carotid endarterectomy, cholecystectomy, diabetes, GERD, CATHERINE, history of CVA, COPD, bipolar disorder, coronary artery disease, anxiety, HLD, gastroparesis, asthma, personal history of colon polyps, history of C diff, AFib, and history of diverticulitis. She presented to the emergency room 06/16/2025 with complaints of nausea, vomiting, diarrhea and abdominal pain. Patient was recently hospitalized at [facility] June 08 for pyelonephritis and severe sepsis. During todays visit she denies any GI complaints. She states that her previous complaints of nausea, vomiting, diarrhea and abdominal pain have resolved since admission. She does admit to a decreased prior to admission but states that her appetite has now returned to baseline. She denies any abdominal pain, bloating, odynophagia, dysphagia, reflux, regurgitation, early satiety or unexplained weight loss. Prior to admission she was having daily bowel movements that she states worse soft to loose but denies diarrhea. She was having darker stools before hospitalization but states that this only occurred after she use Pepto-Bismol. She denies any diarrhea, constipation or hematochezia. She smokes 1 pack per day but denies alcohol or marijuana use. Family history negative for CRC or IBD. ENDOSCOPY HISTORY: EGD: 10/01/[address] Cueto for nausea and h/o gastroparesis Findings: Moderate erosive gastritis was seen in the body of the stomach and in the antrum. The gastritis had moderate erythematous and erosive changes, no mucosal bleeding. EGD otherwise normal Bx results: A. Stomach, biopsies: - Reactive gastropathy with congestion of surface vasculature. - No evidence of Helicobacter organisms. B. Small bowel, biopsies: - Benign duodenal mucosa - No evidence of duodenitis or celiac disease COLONOSCOPY: 10/01/[address] Cueto for Hx of polyps and diverticulitis Findings: There were two 3 mm to 4 mm polyps observed in the cecum Polyps completely excised There were four 3 mm to 5 mm polyps observed in the transverse colon. Polyps completely excised There was a single 5 mm polyps in the descending colon that was completely excised The terminal ileum and colon was examined and was normal otherwise, no colitis A few small sized internal hemorrhoids were seen in the rectum that were not actively bleeding 3 year repeat recommended Bx results: Cecal polyps (x2), polypectomies: - Tubular adenomas (x2) Descending colon polyp, polypectomy: - Tubular adenoma Transverse colon polyps (x4), polypectomies: - Tubular adenomas (x3) - Hyperplastic polyp (x1) LABS AND STOOL STUDIES: Labs 06/18/2025: Sodium 140, potassium 3.1, BUN 13, creatinine 0.88, GFR >60, calcium 7.6 WBC 5, Hgb 10, Hct 32, MCV 91, platelets 154, INR 1.4 (on 06/16) Total bilirubin 0.1, AST 19, ALT 17, Alkaline Phos 54, albumin 2.7, lipase 77 (on 06/12) CRP 1.3 C-Diff negative on 06/16/2025 IMAGING: CT abd/pelvis w/contrast 06/16/2025: IMPRESSION: Hepatomegaly with steatosis. Mild esophagitis/gastritis. 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 New small nonocclusive thrombi in the proximal branch points of the SMA, associated with stable atherosclerotic plaque. No concerning bowel changes to suggest ischemia. Abdominal XRay 06/11/2025: Impression: 1: No acute abdominal abnormality. CTA chest/abd/pelvis 06/08/2025: IMPRESSION: 1. Moderate left perinephric fluid/stranding with mild hydronephrosis. There is mild urothelial thickening of the renal pelvis and proximal ureter. Consider ascending urinary tract infection/pyelonephritis in the appropriate clinical setting. 2: No acute cardiopulmonary disease. Review of Systems 2 Constitutional: Constitutional: Reports as per HPI ENT: Reports as per HPI Cardiovascular: Cardiovascular: Reports as per HPI, Denies chest pain and Denies dyspnea Respiratory: Respiratory: Denies cough and Denies dyspnea Gastrointestinal: Gastrointestinal: Reports as per HPI Musculoskeletal: Musculoskeletal: Reports as per HPI Integumentary/Breasts: Skin/Breast: Reports as per HPI Psychiatric: Psychiatric: Reports as per HPI Endocrine: Endocrine: Reports no additional endocrine complaints Hematologic/Lymphatic: Hematologic/Lymphatic: Reports no additional hematologic/lymphatic complaints [facility] [place] Past Medical History Medical History (Updated 06/18/25 @ 12:04 by Lisa Dowling, MEI) C. difficile diarrhea Two thousand [age] Chronic sinusitis Gastroparesis Age related osteoporosis Asthma Colon polyps Hemorrhoid Paroxysmal atrial fibrillation History of diverticulitis Osteoarthritis Tobacco dependence Bladder cancer Hypertension Peripheral arterial disease Type 2 diabetes mellitus Gastroesophageal reflux disease Obstructive sleep apnea Cerebrovascular accident Chronic left lacunar infarct noted on prior MRI 2014 Chronic obstructive pulmonary disease Bipolar disorder Coronary artery disease Anxiety Hyperlipidemia Macular degeneration History of gastroesophageal reflux (GERD) History of diabetes mellitus History of bladder cancer Surgical History Surgical History History of transurethral resection of bladder tumor (TURBT) History of vascular surgery Bilateral iliac stent. History of section History of cardiac catheterization History of left-sided carotid endarterectomy History of carpal tunnel release History of colonoscopy History of esophagogastroduodenoscopy (EGD) History of cholecystectomy Family History Family History Sibling Diabetes mellitus Family history of malignant neoplasm Heart disease Social History Social History (Updated 06/17/25 @ 00:08 by Marva Lei DO) Social History: The patient reports that she lives in her own apartment alone. She has 1 daughter and 1 son who live in [place] and [place] respectively. She has 1 3-year-old grandchild. She still smokes between 0.5-1 pack of cigarettes per day (down from her prior use of up to 3 packs of cigarettes per day). She has smoked since she was 16. She drink heavily up until her early 20s but does not drink currently. She uses marijuana frequently. Code status: Full code Surrogate decision maker: Joelle Richard (sister) Smoking packs per day: 1 Smoking cigarettes per day: 20.0 Years smoked: 40 Smoking pack-years: 40.00 Smoking status: Current every day smoker Tobacco type: cigarettes Second hand tobacco smoke exposure: No Additional smoking assessment comments: pt. was smoking 3 packs a day and has cut down to half a pack daily Alcohol intake: former Substance use: current Substance use type: marijuana Do You Feel Safe in your Home?: Yes Lack of Transportation: No Lack of Food: Never True Current Housing: I Have Housing Concerned About Future Housing: No Difficulty Paying Gas/Electric Bills: No Difficulty Paying for Meds: No Currently Unemployed: No Education: High School Diploma/GED Difficulty w/ Childcare or Family Care: No Living arrangements: alone Spiritual care concerns: No Meds Home Medications and Allergies Home Medications ?Medication ?Instructions ?Recorded ?Confirmed ?Type clopidogrel 75 mg tablet 75 mg PO DAILY 05/20/21 06/16/25 History albuterol sulfate 90 mcg/actuation 2 puff inhalation QID PRN 07/29/23 06/16/25 Rx aerosol inhaler shortness of breath or wheezing #6.7 grams inhalational spacing device #1 ea 07/29/23 06/16/25 Rx (Aerochamber MV spacer) apixaban 5 mg tablet (Eliquis) 5 mg PO Q12HR #60 tabs 08/11/23 06/16/25 Rx metformin 500 mg tablet 500 mg PO BID 08/26/23 06/16/25 History ergocalciferol (vitamin D2) 1,250 50,000 unit PO WEEKLY 10/25/23 06/16/25 History mcg (50,000 unit) capsule cromolyn 4 % eye drops 1 drp EACH EYE DAILY 03/02/24 06/16/25 History fluticasone propionate 50 1 spray intranasal DAILY 03/02/24 06/16/25 History mcg/actuation nasal spray,suspension dexlansoprazole 30 mg See Rx Instructions .Route 08/24/24 06/16/25 Rx capsule,biphase delayed release .COMPLEX #30 caps fenofibrate 120 mg tablet 120 mg PO DAILY 11/05/24 06/16/25 History sotalol 80 mg tablet 120 mg PO Q12H 12/01/24 06/16/25 History nebulizer and compressor (Lydia #1 ea 12/04/24 06/16/25 Rx Trek S Combo Pack device) blood-glucose meter (OneTouch 02/14/25 06/16/25 History Ultra2 Meter) clonazepam 0.5 mg tablet 0.25 mg PO TID PRN anxiety 02/14/25 06/16/25 History gabapentin 300 mg capsule 300 mg PO TID 02/14/25 06/16/25 History lancets 28 gauge (Safety Lancets) 02/14/25 06/16/25 History lancets 30 gauge 02/14/25 06/16/25 History losartan 100 mg tablet 100 mg PO DAILY 02/14/25 06/16/25 History bupropion HCl 150 mg tablet,12 hr 150 mg PO DAILY 04/19/25 06/16/25 History sustained-release (Wellbutrin SR) triamcinolone acetonide 0.5 % 1 applic topical BID #15 grams 04/19/25 06/16/25 Rx topical cream montelukast 10 mg tablet 10 mg PO QPM #90 tabs 05/17/25 06/16/25 Rx alendronate 70 mg tablet 70 mg PO WEEKLY #12 tabs 05/24/25 06/16/25 Rx cetirizine 10 mg tablet 10 mg PO DAILY #90 tabs 05/24/25 06/16/25 Rx ezetimibe 10 mg tablet See Rx Instructions .Route 05/30/25 06/16/25 Rx .COMPLEX #90 tabs docusate sodium 100 mg capsule 100 mg PO BID #60 caps 06/12/25 06/16/25 Rx albuterol sulfate 2.5 mg/3 mL 2.5 mg (3 mL) inhalation Q6H PRN 06/15/25 06/16/25 Rx (0.083 %) solution for nebulization shortness of breath or wheezing #180 mL hydrocodone 7.5 mg-acetaminophen 1 tablet PO Q6H pain 06/16/25 06/16/25 History 325 mg tablet ondansetron 4 mg disintegrating 4 mg PO Q8H PRN nausea and vomiting 06/16/25 06/17/25 History tablet Allergies Allergy/AdvReac Type Severity Reaction Status Date / Time haloperidol Allergy Unknown Other Verified 06/16/25 22:03 risperidone Allergy Unknown MY MOUTH Verified 06/16/25 22:03 TIGHTENS UP-TD simvastatin Allergy Unknown Other Verified 06/16/25 22:03 Radyqrv-ELN-QgV Reductase Allergy Other Verified 06/16/25 22:03 Inhibitor codeine AdvReac Unknown NAUSEA AND Verified 06/16/25 22:03 VOMITING triazolam AdvReac Unknown N/V Verified 06/16/25 22:03 Wasp Allergy Unknown WASP Uncoded 06/16/25 16:32 STING- CLOSES MY THROAT Vital Signs Vital Signs - 24 hr 06/17/25 09:29 06/17/25 10:00 06/17/25 12:00 Temperature 97.5 F L Pulse Rate 43 L 64 69 Respiratory Rate 18 Blood Pressure 106/60 Pulse Oximetry 99 Oxygen Delivery 06/17/25 12:00 06/17/25 14:00 06/17/25 15:35 Temperature 97.7 F Pulse Rate 63 68 61 Respiratory Rate 16 Blood Pressure 125/81 Pulse Oximetry 100 Oxygen Delivery 06/17/25 16:00 06/17/25 20:00 06/17/25 21:52 Temperature 98.0 F Pulse Rate 55 L 74 Respiratory Rate 20 Blood Pressure 97/63 L Pulse Oximetry 99 Oxygen Delivery Room Air 06/17/25 22:02 06/17/25 22:24 06/18/25 00:00 Temperature Pulse Rate 63 73 Respiratory Rate Blood Pressure Pulse Oximetry 97 Oxygen Delivery Room Air 06/18/25 04:00 06/18/25 06:00 06/18/25 08:00 Temperature 98.1 F Pulse Rate 70 75 67 Respiratory Rate 20 Blood Pressure 107/69 132/74 Pulse Oximetry 100 Oxygen Delivery Exam 2 Const: General: cooperative, healthy appearing, comfortable, no acute distress and well developed Orientation/consciousness: oriented to person, oriented to place, oriented to time and patient oriented x3 HENMT: Head: normal to inspection, normocephalic and atraumatic Mouth: Yes Normal oral and palatal mucosa present and Yes moist mucous membranes Eyes: General: appearance normal, both eyes and all related structures C onjunctivae: conjunctivae normal Sclera: sclerae normal Pupils: Equal, round and reactive pupils present Neck: Neck: normal visual inspection Chest: Chest palpation & inspection: normal inspection of the chest Resp: Effort & Inspection: normal respiratory effort and able to speak in complete sentences Auscultation: clear to auscultation bilaterally Cardio: Jugular venous distension: no JVD Rate: regular rate Rhythm: r egular rhythm Heart sounds: S1 normal heart sound present and S2 normal heart sound present GI: Inspection: normal to inspection GI Palp: Yes Soft to palpation and Yes No hepatosplenomegaly present Auscultation: normal bowel sounds Rectal Exam: deferred Skin: General skin exam: normal color and no rashes or lesions noted Neuro: General: oriented to person, oriented to place, oriented to time and patient oriented x3 Cranial nerves: Yes Equal, round and reactive pupils present Speech: normal speech Extrem: General: normal to inspection and no clubbing, cyanosis or edema Psych: Appearance: grossly normal and well kempt Affect: normal affect Results Labs 06/18/25 05:29 06/18/25 05:29 Labs: Short CBC 06/18/25 Range/Units 05:29 WBC 4.8 (4.5-10.0) K/mm3 Hgb 10.2 L (12.0-15.0) g/dL Hct 31.5 L (37.0-47.0) % Plt Count 154 (150-375) k/mm3 BMP 06/18/25 05:29 Sodium 140 Potassium 3.1 L Chloride 117 H Carbon Dioxide 18 L BUN 13 D Creatinine 0.88 Glucose 115 H Calcium 7.6 L Liver Function 06/18/25 Range/Units 05:29 Total Bilirubin < 0.1 L (0.2-1.3) mg/dL AST 19 (14-36) U/L ALT 17 (6-35) U/L Alkaline Phosphatase 54 (38-126) U/L Albumin 2.7 L (3.5-5.1) g/dL
[2025-06-18 09:35] LABS: Thyroid Stimulating Hormone Reflex 4.400 uIU/mL (0.465-4.68)
[2025-06-18 11:20] LABS: Free T4 Free Thyroxine Reflex 1.27 ng/dL (0.78-2.19)
[2025-06-18 12:12] LABS: Total Triiodothyronine (T3) 0.80 NG/ML (0.82-1.58)
[2025-06-18] MEDS: cefTRIAXone 2 GM in SODIUM CHLORIDE 0.9% IV 100 ML 200 ML IVPB (13:30)
--- NOTE | 2025-06-18 14:08 | P.CONCA_ITS ---
Assessment and Plan Assessment and plan (1) Bradycardia: Code(s): R00.1 - Bradycardia, unspecified Status: Acute Assessment and Plan: I did not see any examples of significant bradycardia, pauses, or high degree blocks on telemetry review. Currently in sinus rhythm with a rate in the 70's. She does have some mild bradycardia with HR in the 40's. Sotalol has been on hold for several doses because of this. She did present in atrial fibrillation. * We can decrease sotalol dose to 80mg b.i.d. * If she has recurrent symptomatic AF then will send her to see EP again for possible AF ablation * Continue anticoagulation with apixaban 5mg p.o. b.i.d Cardiology will sign off please call with questions (2) Paroxysmal atrial fibrillation: Code(s): I48.0 - Paroxysmal atrial fibrillation Status: Acute Assessment and Plan: See above (3) Tobacco dependence: Code(s): F17.200 - Nicotine dependence, unspecified, uncomplicated Status: Acute Assessment and Plan: Smoking cessation recommended (4) Hypertension: Code(s): I10 - Essential (primary) hypertension Status: Acute Assessment and Plan: At goal History of Present Illness History of Present Illness Consult date/time: 06/18/25 14:08 Requesting physician: Manny Morris MD Consult reason: Other (bradycardia) Reason For Visit: Severe Sepsis/Acute Kidney Injury/Dehydration/SMA Narrative: Rody Zaidi is a 64-year-old female with paroxysmal atrial fibrillation and peripheral arterial disease. This is a patient who presented to the hospital with nausea and vomiting. Cardiology is consulted for bradycardia. Per the bedside nurse, there is a report from IMU nurse that patient's telemetry alarms for a heart rate in the 20s. This is not documented in her record and after detailed review of her telemetry I don't see any significant bradycardia. Patient denies any chest pain, palpitations, shortness of breath, syncope, pre- syncope. States she wants to go home. Review of Systems 2 Review of Systems: All systems reviewed & are unremarkable except as noted in HPI and below PMFSH Past Medical History Medical History C. difficile diarrhea Two thousand twenty-three Chronic sinusitis Gastroparesis Age related osteoporosis Asthma Colon polyps Hemorrhoid Paroxysmal atrial fibrillation History of diverticulitis Osteoarthritis Tobacco dependence Bladder cancer Hypertension Peripheral arterial disease Type 2 diabetes mellitus Gastroesophageal reflux disease Obstructive sleep apnea Cerebrovascular accident Chronic left lacunar infarct noted on prior MRI 2014 Chronic obstructive pulmonary disease Bipolar disorder Coronary artery disease Anxiety Hyperlipidemia Macular degeneration History of gastroesophageal reflux (GERD) History of diabetes mellitus History of bladder cancer Surgical History Surgical History History of transurethral resection of bladder tumor (TURBT) History of vascular surgery Bilateral iliac stent. History of section History of cardiac catheterization History of left-sided carotid endarterectomy History of carpal tunnel release History of colonoscopy History of esophagogastroduodenoscopy (EGD) History of cholecystectomy Family History Family History Sibling Diabetes mellitus Family history of malignant neoplasm Heart disease Social History Social History Social History: The patient reports that she lives in her own apartment alone. She has 1 daughter and 1 son who live in [place] and [place] respectively. She has 1 3-year-old grandchild. She still smokes between 0.5-1 pack of cigarettes per day (down from her prior use of up to 3 packs of cigarettes per day). She has smoked since she was 16. She drink heavily up until her early 20s but does not drink currently. She uses marijuana frequently. Code status: Full code Surrogate decision maker: Joelle Richard (sister) Smoking packs per day: 1 Smoking cigarettes per day: 20.0 Years smoked: 40 Smoking pack-years: 40.00 Smoking status: Current every day smoker Tobacco type: cigarettes Second hand tobacco smoke exposure: No Additional smoking assessment comments: pt. was smoking 3 packs a day and has cut down to half a pack daily Alcohol intake: former Substance use: current Substance use type: marijuana Do You Feel Safe in your Home?: Yes Lack of Transportation: No Lack of Food: Never True Current Housing: I Have Housing Concerned About Future Housing: No Difficulty Paying Gas/Electric Bills: No Difficulty Paying for Meds: No Currently Unemployed: No Education: High School Diploma/GED Difficulty w/ Childcare or Family Care: No Living arrangements: alone Spiritual care concerns: No Meds Home Medications and Allergies Home Medications ?Medication ?Instructions ?Recorded ?Confirmed ?Type clopidogrel 75 mg tablet 75 mg PO DAILY 05/20/21 06/16/25 History albuterol sulfate 90 mcg/actuation 2 puff inhalation QID PRN 07/29/23 06/16/25 Rx aerosol inhaler shortness of breath or wheezing #6.7 grams inhalational spacing device #1 ea 07/29/23 06/16/25 Rx (Aerochamber MV spacer) apixaban 5 mg tablet (Eliquis) 5 mg PO Q12HR #60 tabs 08/11/23 06/16/25 Rx metformin 500 mg tablet 500 mg PO BID 08/26/23 06/16/25 History ergocalciferol (vitamin D2) 1,250 50,000 unit PO WEEKLY 10/25/23 06/16/25 History mcg (50,000 unit) capsule cromolyn 4 % eye drops 1 drp EACH EYE DAILY 03/02/24 06/16/25 History fluticasone propionate 50 1 spray intranasal DAILY 03/02/24 06/16/25 History mcg/actuation nasal spray,suspension dexlansoprazole 30 mg See Rx Instructions .Route 08/24/24 06/16/25 Rx capsule,biphase delayed release .COMPLEX #30 caps fenofibrate 120 mg tablet 120 mg PO DAILY 11/05/24 06/16/25 History sotalol 80 mg tablet 120 mg PO Q12H 12/01/24 06/16/25 History nebulizer and compressor (Lydia #1 ea 12/04/24 06/16/25 Rx Trek S Combo Pack device) blood-glucose meter (OneTouch 02/14/25 06/16/25 History Ultra2 Meter) clonazepam 0.5 mg tablet 0.25 mg PO TID PRN anxiety 02/14/25 06/16/25 History gabapentin 300 mg capsule 300 mg PO TID 02/14/25 06/16/25 History lancets 28 gauge (Safety Lancets) 02/14/25 06/16/25 History lancets 30 gauge 02/14/25 06/16/25 History losartan 100 mg tablet 100 mg PO DAILY 02/14/25 06/16/25 History bupropion HCl 150 mg tablet,12 hr 150 mg PO DAILY 04/19/25 06/16/25 History sustained-release (Wellbutrin SR) triamcinolone acetonide 0.5 % 1 applic topical BID #15 grams 04/19/25 06/16/25 Rx topical cream montelukast 10 mg tablet 10 mg PO QPM #90 tabs 05/17/25 06/16/25 Rx alendronate 70 mg tablet 70 mg PO WEEKLY #12 tabs 05/24/25 06/16/25 Rx cetirizine 10 mg tablet 10 mg PO DAILY #90 tabs 05/24/25 06/16/25 Rx ezetimibe 10 mg tablet See Rx Instructions .Route 05/30/25 06/16/25 Rx .COMPLEX #90 tabs docusate sodium 100 mg capsule 100 mg PO BID #60 caps 06/12/25 06/16/25 Rx albuterol sulfate 2.5 mg/3 mL 2.5 mg (3 mL) inhalation Q6H PRN 06/15/25 06/16/25 Rx (0.083 %) solution for nebulization shortness of breath or wheezing #180 mL hydrocodone 7.5 mg-acetaminophen 1 tablet PO Q6H pain 06/16/25 06/16/25 History 325 mg tablet ondansetron 4 mg disintegrating 4 mg PO Q8H PRN nausea and vomiting 06/16/25 06/17/25 History tablet Allergies Allergy/AdvReac Type Severity Reaction Status Date / Time haloperidol Allergy Unknown Other Verified 06/16/25 22:03 risperidone Allergy Unknown MY MOUTH Verified 06/16/25 22:03 TIGHTENS UP-TD simvastatin Allergy Unknown Other Verified 06/16/25 22:03 [id number] Reductase Allergy Other Verified 06/16/25 22:03 Inhibitor codeine AdvReac Unknown NAUSEA AND Verified 06/16/25 22:03 VOMITING triazolam AdvReac Unknown N/V Verified 06/16/25 22:03 Wasp Allergy Unknown WASP Uncoded 06/16/25 16:32 STING- CLOSES MY THROAT Vital Signs Vital Signs - 24 hr 06/17/25 15:35 06/17/25 16:00 06/17/25 20:00 Temperature 36.5 C Pulse Rate 61 55 L Respiratory Rate 16 Blood Pressure 125/81 Pulse Oximetry 100 Oxygen Delivery Room Air 06/17/25 21:52 06/17/25 22:02 08/03/25 22:24 Temperature 36.7 C Pulse Rate 74 63 Respiratory Rate 20 Blood Pressure 97/63 L Pulse Oximetry 99 97 Oxygen Delivery Room Air 06/18/25 00:00 06/18/25 04:00 06/18/25 06:00 Temperature 36.7 C Pulse Rate 73 70 75 Respiratory Rate 20 Blood Pressure 107/69 Pulse Oximetry 100 Oxygen Delivery 06/18/25 08:00 06/18/25 08:00 06/18/25 13:45 Temperature Pulse Rate 67 78 Respiratory Rate 22 H Blood Pressure 132/74 150/78 H Pulse Oximetry 100 Oxygen Delivery Room Air Exam 2 Const: General: comfortable, no acute distress, alert and awake O rientation/consciousness: patient oriented x3 Other: Obese HENMT: Head: normal to inspection Eyes: General: appearance normal, both eyes and all related structures P upils: Equal, round and reactive pupils present Neck: Neck: normal visual inspection, supple and no JVD Carotids: normal carotid upstroke Resp: Effort & Inspection: normal respiratory effort Auscultation: wheezes and diminished lung sounds Cardio: Rate: regular rate Rhythm: regular rhythm Heart sounds: S1 normal heart sound present, S2 normal heart sound present and no murmurs GI: Auscultation: normal bowel sounds Skin: General skin exam: normal color Neuro: General: patient oriented x3 Cranial nerves: Yes Equal, round and reactive pupils present Extrem: General: normal to inspection Psych: Appearance: grossly normal Mental Status: mental status grossly normal Results Labs and Meds 06/18/25 05:29 06/18/25 05:29 Lab results: Cardiac Enzymes 06/18/25 Range/Units 05:29 AST 19 (14-36) U/L CBC 06/18/25 Range/Units 05:29 WBC 4.8 (4.5-10.0) K/mm3 RBC 3.48 L (4.2-5.4) M/mm3 Hgb 10.2 L (12.0-15.0) g/dL Hct 31.5 L (37.0-47.0) % Plt Count 154 (150-375) k/mm3 Comprehensive Metabolic Panel 06/18/25 Range/Units 05:29 Sodium 140 (137-145) mmol/L Potassium 3.1 L (3.4-5.0) mmol/L Chloride 117 H (98-107) mmol/L Carbon Dioxide 18 L (22-30) mmol/L BUN 13 D (7-17) mg/dL Creatinine 0.88 (0.7-1.0) mg/dL Glucose 115 H (65-110) mg/dL Calcium 7.6 L (8.4-10.2) mg/dL AST 19 (14-36) U/L ALT 17 (6-35) U/L Alkaline Phosphatase 54 (38-126) U/L Total Protein 5.2 L (6.3-8.2) g/dL Albumin 2.7 L (3.5-5.1) g/dL Intake and Output 06/17/25 06/18/25 06/18/25 23:59 07:59 15:59 Intake Total 1600 2100 1480 Output Total 850 Balance 750 2100 1480 Intake: IV 1000 1000 1000 Sodium Chloride 0.9% IV 1,000 1000 1000 1000 ml @ 150 mls/hr IV CONT .Q6H40M [facility] Rx#:[id number] Oral 600 1100 480 Output: Urine 850 Other: # Unmeasured Voids 2 1 1 Number of Bowel Movements Today 4 Patient Weight 06/18/25 23:59 Weight 89.1 kg
[2025-06-18] MEDS: ACETAMINOPHEN 325 MG TABLET 650 MG PO (20:52)
[2025-06-18] MEDS: MONTELUKAST SODIUM 10 MG TABLET PO (20:53)
[2025-06-19] VITALS: PULSE 78
[2025-06-19 04:00] VITALS: PULSE 73
[2025-06-19] MEDS: SODIUM CHLORIDE 0.9% IV 1,000 ML 150 ML IV CONT (04:15)
[2025-06-19 06:00] VITALS: BP 145/89; PULSE 82; RESP 18; TEMP 36.6; O2SAT 99
[2025-06-19 06:24] LABS: Hematocrit 30.3 % (37.0-47.0); Hemoglobin 9.5 g/dL (12.0-15.0); Mean Corpuscular HGB Conc 31.4 g/dl (32-36); Mean Corpuscular Hemoglobin 29.0 pg (26-34); Mean Corpuscular Volume 92.4 fl (80-100); Platelet Count Result 141 k/mm3 (150-375); Red Blood Count 3.28 M/mm3 (4.2-5.4); White Blood Count 4.7 K/mm3 (4.5-10.0)
[2025-06-19 06:50] LABS: Alanine Aminotransferase 13 U/L (6-35); Albumin Level 2.6 g/dL (3.5-5.1); Alkaline Phosphatase 50 U/L (38-126); Anion Gap 5 mmol/L (4-12); Aspartate Amino Transferase 17 U/L (14-36); Bilirubin,Total < 0.1 mg/dL (0.2-1.3); Blood Urea Nitrogen 9 mg/dL (7-17); Calcium 7.6 mg/dL (8.4-10.2); Carbon Dioxide 18 mmol/L (22-30); Chloride 115 mmol/L (98-107); Estimated CRCL calculation 66 ml/min; Estimated Glomerular Filt Rate > 60; Glucose 104 mg/dL (65-110); Potassium 3.7 mmol/L (3.4-5.0); Sodium 138 mmol/L (137-145); Total Protein 5.2 g/dL (6.3-8.2)
[2025-06-19 08:00] VITALS: PULSE 78; O2SAT 99
[2025-06-19] MEDS: cefTRIAXone 2 GM in SODIUM CHLORIDE 0.9% IV 100 ML 200 ML IVPB (08:48)
[2025-06-19 08:52] VITALS: PULSE 90
[2025-06-19] MEDS: EZETIMIBE 10 MG TABLET PO (08:52)
[2025-06-19] MEDS: GABAPENTIN 300 MG CAPSULE PO ×2 (08:53→12:32)
[2025-06-19] MEDS: PANTOPRAZOLE 40 MG TABLET PO (08:53)
[2025-06-19] MEDS: buPROPion HCL SR (12 HR) 150 MG TAB PO (08:53)
[2025-06-19] MEDS: APIXABAN 5 MG TABLET PO (08:53)
[2025-06-19] MEDS: NICOTINE (*PBKC) 21 MG PATCH 1 PATCH TRANSDERM (08:53)
[2025-06-19] MEDS: LORATADINE 10 MG TABLET PO (08:53)
[2025-06-19] MEDS: FENOFIBRATE NANOCRYSTALLIZED 145 MG TABLET PO (08:53)
[2025-06-19] MEDS: CLOPIDOGREL BISULFATE 75 MG TABLET PO (08:53)
[2025-06-19] MEDS: FLUTICASONE PROPIONATE 0.05% NA SPR 16 GM BTL (*BKC) 1 SPRAY NASAL (08:56)
[2025-06-19] MEDS: OLOPATADINE 0.1% OPHTH SOLN 5 ML BTL 1 DROP EACH EYE (08:57)
[2025-06-19] MEDS: HYDROcodone/acetaminophen (*CRX) 7.5-325 MG TABLET 1 TAB PO (09:05)
[2025-06-19] MEDS: clonazePAM (*CRX) 0.25 MG TABLET PO (09:05)
[2025-06-19] MEDS: FUROSEMIDE INJ 40 MG/4 ML VIAL 20 MG IV PUSH (12:32)
--- NOTE | 2025-06-19 13:38 | P.DS_ITS ---
DS: Admitting Diagnosis Discharge Date 06/19/25 Admitting Diagnosis Shortness of breath DS: Discharge Diagnosis Discharge Diagnosis (1) Superior mesenteric artery thrombosis: Code(s): K55.069 - Acute infarction of intestine, part and extent unspecified Status: Acute DS: Summary Hospital Course Hospital Course: Presenting Symptoms: * Nausea, vomiting, epigastric pain radiating to back, burning sensation, and two episodes of loose stools. * No recurrence of fever or chills. * Mild tachycardia, no hypotension, afebrile on presentation. * Oliguria prior to admission. Initial Workup: * Labs: Significant hemoconcentration, leukocytosis (WBC 20.5), acute kidney injury (Cr 2.04), elevated BUN, lactic acidosis (lactate 3.1 ? 2.2 after fluids), hyponatremia, anion gap metabolic acidosis. * UA: 3+ protein, trace ketones/glucose, 1+ leukocyte esterase, 11-20 WBCs, >20 casts, no bacteria. * Imaging: CT abdomen/pelvis showed mild esophagitis/gastritis, hepatomegaly with steatosis, and new small nonocclusive thrombi in proximal SMA branches with stable atherosclerotic plaque. No evidence of bowel ischemia. Hospital Management: * Sepsis/JAYLEN/Dehydration: * Empiric IV cefepime and vancomycin initiated; blood and urine cultures obtained (pending). * Aggressive IV fluid resuscitation (NS at 50 mL/hr). * Strict I&O monitoring. * Avoidance of nephrotoxic agents. * Metformin held due to lactic acidosis. * JAYLEN resolved * GI Symptoms: * Nausea and vomiting resolved with supportive care. * PPI therapy continued (Dexilant 30 mg daily outpatient; Protonix inpatient). * Pepto-Bismol use prior to admission, with dark stools attributed to this. * C. difficile testing negative. * Diet advanced as tolerated. * GI involved and recommended continuing home Dexilant, will contineu follow up with GI as instructed * SMA Thrombosis: * Nonocclusive, asymptomatic; patient already on chronic anticoagulation (Eliquis for AFib). * Heparin drip discontinued; home Eliquis resumed. * Follows up with Vascular surgery in [facility] * Atrial Fibrillation/Bradycardia: * Sotalol held for bradycardia (HR 40s); currently in sinus rhythm (HR 70s). * Sotalol dose reduced to 80 mg BID. * Continue apixaban 5 mg BID. * Cardiology follow-up recommended; consider EP referral if recurrent symp tomatic AF. * cardiology was involved with care with the above recommendation * Anemia: * Normocytic anemia (Hgb 10, Hct 32, MCV 91, Plt 154). * No evidence of active GI bleeding. Hb stable throughout admission * Outpatient monitoring of H/H. * Hepatomegaly/Steatosis: * Imaging consistent with hepatic steatosis; LFTs normal. * Risk factors: diabetes, hyperlipidemia, BMI 37. * Outpatient GI follow-up recommended. * Other: * Hypertension at goal; home antihypertensives held during admission due to soft BPs. * Tobacco dependence: smoking cessation strongly recommended. Follow-Up and Recommendations * Primary Care:?Monitor H/H, renal function, and blood pressure. * Cardiology:?Outpatient follow-up; consider EP referral if recurrent symptomatic AF. * Vascular Surgery:?Follow up with Dr. Jose A Clark at [facility] for right common iliac artery stent and SMA findings. * Gastroenterology:?Outpatient follow-up for hepatomegaly/steatosis and as needed for recurrent GI symptoms (KATHERINE Pavon). * Smoking Cessation:?Strongly encouraged. * Return Precautions:?Worsening abdominal pain, recurrent vomiting, GI bleeding, chest pain, palpitations, syncope, or any new concerning symptoms. Time Spent with Patient Time attestation: Total time spent providing and/or coordinating discharge services: DS: Data Data Completed and Pending Labs on day of discharge: Labs from last 24 hours 06/19/25 06/19/25 06/19/25 11:10 07:32 05:22 WBC 4.7 RBC 3.28 L Hgb 9.5 L Hct 30.3 L MCV 92.4 MCH 29.0 MCHC 31.4 L RDW 13.0 Plt Count 141 L MPV 10.1 Sodium 138 Potassium 3.7 Chloride 115 H Carbon Dioxide 18 L Anion Gap 5 BUN 9 Creatinine 0.77 Estim Creat Clear Calc 66 Estimated GFR > 60 Glucose 104 POC Capillary Glucose 93 90 Calcium 7.6 L Total Bilirubin < 0.1 L AST 17 ALT 13 Alkaline Phosphatase 50 Total Protein 5.2 L Albumin 2.6 L 06/18/25 06/18/25 20:06 16:07 WBC RBC Hgb Hct MCV MCH MCHC RDW Plt Count MPV Sodium Potassium Chloride Carbon Dioxide Anion Gap BUN Creatinine Estim Creat Clear Calc Estimated GFR Glucose POC Capillary Glucose 120 H 117 H Calcium Total Bilirubin AST ALT Alkaline Phosphatase Total Protein Albumin Discharge Plan Discharge Attending physician on discharge: Greg Porter Consulting providers: Kely Moran; Greg Porter Discharging Clinician: Greg Porter Anticipated Discharge Date/Time: 06/19/25 13:29 Patient Disposition: Home Activity: as tolerated Diet: as tolerated and heart healthy Patient Instructions: Antibiotic Form, Clopidogrel (By mouth), Apixaban (By mouth), Dehydration (GEN), Acute Kidney Injury (GEN), Sepsis (GEN) Patient Language: Albanian Stand Alone Forms: General Discharge Information Follow-up/Referrals: Lisa Dowling APRN [Advanced Practice Nurse] - (F/u with GI as instructed ) Kely Moran APN-C [Advanced Practice Nurse] - (F/u with cardiology as instructed ) Snow Montgomery APRN [Primary Care Provider] - (F/u with PCP in 3-5 days ) Discharge Medications: Continued (DME) Aerochamber MV Spacer See Rx Instructions .Route Qty: 1 0RF Rx Instructions: As directed albuterol sulfate 90 mcg/actuation HFA aerosol inhaler 2 puff inhalation QID PRN (Reason: shortness of breath or wheezing) Qty: 6.7 0RF cromolyn 4 % drops 1 drp EACH EYE DAILY fluticasone propionate 50 mcg/actuation [place],Suspension 1 spray INTRANASAL DAILY (DME) blood-glucose meter [[employer] Ultra2 Meter] Misc MISCELLANEOUS clonazepam 0.5 mg tablet 0.25 mg PO TID PRN (Reason: anxiety) gabapentin 300 mg capsule 300 mg PO TID losartan 100 mg tablet 100 mg PO DAILY (DME) lancets 30 gauge misc MISCELLANEOUS (DME) lancets [Safety Lancets] 28 gauge misc MISCELLANEOUS clopidogrel 75 mg tablet 75 mg PO DAILY bupropion HCl [Wellbutrin SR] 150 mg tablet sustained-release 12 hr 150 mg PO DAILY triamcinolone acetonide 0.5 % cream 1 applic topical BID Qty: 15 0RF Patient Comments: eczema on face alendronate 70 mg tablet 70 mg PO WEEKLY Qty: 12 3RF Patient Comments: Saturdays cetirizine 10 mg tablet 10 mg PO DAILY Qty: 90 3RF metformin 500 mg tablet 500 mg PO BID Eliquis 5 mg Tablet 5 mg PO Q12HR Qty: 60 2RF (DME) nebulizer and compressor [Lydia Trek S Combo Pack] Device 1 ea miscellaneous DIRECTED Qty: 1 0RF ondansetron 4 mg tablet,disintegrating 4 mg PO Q8H PRN (Reason: nausea and vomiting) hydrocodone-acetaminophen 7.5-325 mg tablet 1 tablet PO Q6H ergocalciferol (vitamin D2) 1,250 mcg (50,000 unit) capsule 50,000 unit PO WEEKLY Rx Instructions: takes weekly on Wednesday fenofibrate 120 mg tablet 120 mg PO DAILY docusate sodium 100 mg Capsule 100 mg PO BID Qty: 60 0RF dexlansoprazole 30 mg capsule,biphase delayed releas See Rx Instructions .ROUTE .COMPLEX Qty: 30 11RF Dose Instruction: TAKE 1 CAPSULE BY MOUTH DAILY Rx Instructions: TAKE 1 CAPSULE BY MOUTH DAILY montelukast 10 mg tablet 10 mg PO QPM Qty: 90 0RF ezetimibe 10 mg tablet See Rx Instructions .ROUTE .COMPLEX Qty: 90 0RF Dose Instruction: TAKE 1 TABLET BY MOUTH EVERY DAY Rx Instructions: TAKE 1 TABLET BY MOUTH EVERY DAY albuterol sulfate 2.5 mg /3 mL (0.083 %) solution for nebulization 2.5 mg inhalation Q6H PRN (Reason: shortness of breath or wheezing) Qty: 180 0RF Changed sotalol 80 mg Tablet 80 mg PO Q12H 30 Days Qty: 60 1RF Date of admission: 08/02/25 20:02 Primary Care Provider: Snow Montgomery Admitting Provider: Marva Lei Attending physician on admission: Marva Lei Condition: Stable
[2025-06-19 13:54] VITALS: BP 154/84; PULSE 71; RESP 16; TEMP 35.6; O2SAT 99
--- NOTE | 2025-06-19 14:25 | PC.NURSE ---
On 06/19/25, the RADAR ENGINEERING TEACHER, Snow Cueto, provided care and completed [employer] documentation on this patient. I have reviewed the RADAR ENGINEERING TEACHER's documentation and agree with the findings.
== END 2025-06-19 14:25 | disposition home or self-care (01) | DRG 720 ==
LOC: ANHED 20:01 → ANHIMU 20:24 → ANH3MEDSUR 06-17 20:20
PROVIDERS: General Practice; Admitting Provider Internal Medicine; Emergency Provider Student in an Organized Health Care Education/Training Program; PCP Nurse Practitioner Family; Visit Provider Internal Medicine
DX: A41.9 Sepsis, unspecified organism (principal); N17.9 Acute kidney failure, unspecified; R65.20 Severe sepsis without septic shock; I10 Essential (primary) hypertension; I48.0 Paroxysmal atrial fibrillation; I25.10 Atherosclerotic heart disease of native coronary artery without angina pectoris; J44.9 Chronic obstructive pulmonary disease, unspecified; D72.829 Elevated white blood cell count, unspecified; D64.9 Anemia, unspecified; E87.1 Hypo-osmolality and hyponatremia; E87.20 Acidosis, unspecified; E11.51 Type 2 diabetes mellitus with diabetic peripheral angiopathy without gangrene; E78.5 Hyperlipidemia, unspecified; K55.069 Acute infarction of intestine, part and extent unspecified; K20.90 Esophagitis, unspecified without bleeding; K29.50 Unspecified chronic gastritis without bleeding; K21.9 Gastro-esophageal reflux disease without esophagitis; K57.30 Diverticulosis of large intestine without perforation or abscess without bleeding; R11.2 Nausea with vomiting, unspecified; R19.7 Diarrhea, unspecified; R00.1 Bradycardia, unspecified; G47.33 Obstructive sleep apnea (adult) (pediatric); M19.90 Unspecified osteoarthritis, unspecified site; H35.30 Unspecified macular degeneration; Z20.822 Contact with and (suspected) exposure to COVID-19; F41.9 Anxiety disorder, unspecified; F31.9 Bipolar disorder, unspecified; F17.210 Nicotine dependence, cigarettes, uncomplicated; Z85.51 Personal history of malignant neoplasm of bladder; Z95.820 Peripheral vascular angioplasty status with implants and grafts; Z79.02 Long term (current) use of antithrombotics/antiplatelets; Z79.01 Long term (current) use of anticoagulants
CPT/HCPCS: 36415; 71046; 74177; 80053; 80202; 81001; 82565; 82948; 83605; 84439; 84443; 84480; 85025; 85027; 85610; 85730; 86140; 87040; 87086; 87493; 93005; 96361; 96365; 96366; 96367; 96375; 96376; 99285; A9270; J0692; J0696; J1644; J1938; J2270; J2405; J3373; J7030; Q9967

== ENCOUNTER 2025-09-06 10:42 | Emergency (ER) | payer OTHER, SELFPAY ==
[2025-09-06 10:53] VITALS: BP 91/66; PULSE 83; RESP 20; TEMP 36.8; O2SAT 99
--- NOTE | 2025-09-06 11:10 | ED.URI ---
HPI - URI/Sore Throat General Chief Complaint: Upper Respiratory Infection Stated Complaint: Sinus Time Seen by Provider: 09/06/25 11:05 Source: patient, RN notes reviewed and old records reviewed Mode of arrival: ambulatory Limitations: no limitations History of Present Illness HPI Narrative: 64 year old female who presents to [facility] with complaints of dry cough, nasal congestion drainage, decreased appetite, upset stomach, small diarrhea stool this morning, headache and body aches starting yesterday. Patient reports that she has felt feverish and has had chills but has not taken her temperature. Patient reports that she takes daily allergy pill, uses daily inhalers, and sinus spray and reports that she has taken some Tylenol. Patient has history of COPD and continues to smoke reported 8 cigarettes daily. MD elicited complaint: cough, rhinorrhea, nasal congestion and other (decreased appetite, upset stomach, small diarrhea stool X1, headache and body aches and chills) Pertinent past history: COPD, asthma and other (tobacco abuse) Onset (ago): day(s) (since yesterday) Severity: mild Able to tolerate fluids by mouth: Yes Treatments prior to arrival: acetaminophen and other (takes daily allergy medication, uses nasal spray and inhalers) Related Data Home Medications ?Medication ?Instructions ?Recorded ?Confirmed ?Last Taken ?Type clopidogrel 75 mg tablet 75 mg PO DAILY 05/20/21 08/03/25 06/16/25 History fluticasone propionate 50 1 spray intranasal DAILY 03/02/24 08/03/25 06/16/25 History mcg/actuation nasal spray,suspension fenofibrate 120 mg tablet 120 mg PO DAILY 11/05/24 08/03/25 06/16/25 History blood-glucose meter (OneTouch 02/14/25 08/03/25 Unknown History Ultra2 Meter) clonazepam 0.5 mg tablet 0.25 mg PO TID PRN anxiety 02/14/25 08/03/25 06/16/25 History gabapentin 300 mg capsule 300 mg PO TID 02/14/25 08/03/25 06/16/25 History lancets 28 gauge (Safety Lancets) 02/14/25 08/03/25 Unknown History lancets 30 gauge 02/14/25 08/03/25 Unknown History bupropion HCl 150 mg tablet,12 hr 150 mg PO DAILY 04/19/25 08/03/25 06/16/25 History sustained-release (Wellbutrin SR) hydrocodone 7.5 mg-acetaminophen 1 tablet PO Q6H pain 06/16/25 08/03/25 06/15/25 History 325 mg tablet sotalol 80 mg tablet 120 mg PO Q12H 07/11/25 08/03/25 Unknown History Allergies Allergy/AdvReac Type Severity Reaction Status Date / Time haloperidol Allergy Unknown Other Verified 09/06/25 10:51 risperidone Allergy Unknown MY MOUTH Verified 09/06/25 10:51 TIGHTENS UP-TD simvastatin Allergy Unknown Other Verified 09/06/25 10:51 [id number] Reductase Allergy Other Verified 09/06/25 10:51 Inhibitor codeine AdvReac Unknown NAUSEA AND Verified 09/06/25 10:51 VOMITING triazolam AdvReac Unknown N/V Verified 09/06/25 10:51 Wasp Allergy Unknown WASP Uncoded 08/03/25 08:12 STING- CLOSES MY THROAT Review of Systems Review of Systems: CONSTITUTIONAL: Reports malaise, chills, sweats, states has felt feverish but has not taken her temperature.. EYES: Denies visual changes, redness, or discharge. ENT: Reports rhinorrhea, congestion, sinus pain, no otalgia and no sore throat. CARDIOVASCULAR: Denies chest pain, palpitations, or edema. RESPIRATORY: Reports dry cough.? Denies dyspnea. GASTROINTESTINAL: Denies abdominal pain,reports nausea, no vomiting,small diarrhea stool this morning. SKIN: Denies rash or itching. MUSCULOSKELETAL: Reports myalgia. NEUROLOGIC: Reports headache. All systems reviewed & are unremarkable except as noted in HPI and below PMFSH Past Medical History Medical History BMI 34.0-34.9,adult C. difficile diarrhea Two thousand twenty[age]three Chronic sinusitis Gastroparesis Age related osteoporosis Asthma Colon polyps Hemorrhoid Paroxysmal atrial fibrillation History of diverticulitis Osteoarthritis Tobacco dependence Bladder cancer Hypertension Peripheral arterial disease Type 2 diabetes mellitus Gastroesophageal reflux disease Obstructive sleep apnea Cerebrovascular accident Chronic left lacunar infarct noted on prior MRI 2014 Chronic obstructive pulmonary disease Bipolar disorder Coronary artery disease Anxiety Hyperlipidemia Macular degeneration History of gastroesophageal reflux (GERD) History of diabetes mellitus History of bladder cancer Surgical History Surgical History History of transurethral resection of bladder tumor (TURBT) History of vascular surgery Bilateral iliac stent. History of section History of cardiac catheterization History of left-sided carotid endarterectomy History of carpal tunnel release History of colonoscopy History of esophagogastroduodenoscopy (EGD) History of cholecystectomy Family History Family History Sibling Diabetes mellitus Family history of malignant neoplasm Heart disease Father No problems noted. Mother No problems noted. Social History Social History (Updated 09/07/25 @ 09:37 by Alexandra Mock APRN) Social History: The patient reports that she lives in her own apartment alone. She has 1 daughter and 1 son who live in [place] and [place] respectively. She has 1 3-year-old grandchild. She still smokes between 0.5-1 pack of cigarettes per day (down from her prior use of up to 3 packs of cigarettes per day). She has smoked since she was 16. She drink heavily up until her early 20s but does not drink currently. She uses marijuana frequently. Code status: Full code Surrogate decision maker: Joelle Richard (sister) Smoking packs per day: 1 Smoking cigarettes per day: 20.0 Years smoked: 40 Smoking pack-years: 40.00 Smoking status: Current every day smoker Tobacco type: cigarettes Second hand tobacco smoke exposure: No Additional smoking assessment comments: pt. 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 There is no relevant family history pertinent to the presenting complaint Exam Narrative: GENERAL: chronic ill-appearing, well-nourished, and in no acute distress. HEAD: Normocephalic EYES: PERRLA, conjunctivae clear ENT: Nares clear, turbinates edematous and erythematous, clear discharge reports sinus pressure and some headaches. Mucous membranes moist. TM pearly howard with dull light reflex bilaterally; no tragal tenderness.has right TM tube, Oropharynx erythematous without lesions. Tonsils not enlarged and without exudate, no drooling, no hoarseness, no trismus, uvula midline.post nasal drainage NECK: Supple. No lymphadenopathy CHEST: Clear decreased to auscultation, breath sounds equal. No wheezing, rhonchi, rales, or stridor. No respiratory distress, speaks in full sentences.dry cough no dyspnea or any tachypnea SAO2 99% on room air HEART: Regular rate and rhythm. No murmur heard. SKIN: Warm, dry, no rash. NEURO: Alert and oriented x3. PSYCH: Normal mood and affect Course Course Emergency Course: Patient is aware of diagnosis, understands and agrees to treatment plan.? Anticipatory guidance given.? Patient agrees to follow-up as directed and is aware of reasons to seek care at the emergency department. Portions of this record may have been created with voice recognition software Level of Care: Express Care Visit Vital Signs Vital signs: Vital Signs Temperature 36.8 C 09/06/25 10:53 Pulse Rate 83 09/06/25 10:53 Respiratory Rate 20 09/06/25 10:53 Blood Pressure 91/66 L 09/06/25 10:53 Pulse Oximetry 99 09/06/25 10:53 Oxygen Delivery Room Air 09/06/25 10:53 Temperature 36.8 C 09/06/25 10:53 Pulse Rate 83 09/06/25 10:53 Respiratory Rate 20 09/06/25 10:53 Blood Pressure 91/66 L 09/06/25 10:53 Pulse Oximetry 99 09/06/25 10:53 Oxygen Delivery Room Air 09/06/25 10:53 Reviewed MDM - URI/Sore Throat MDM Narrative Medical decision making narrative: Differential diagnosis considered: Abreu virus, strep pharyngitis, allergic rhinitis, upper respiratory tract infection, sinusitis, rhinosinusitis, nasopharyngitis. viral pharyngitis, otitis media, otitis externa, pneumonia, bronchitis, viral cough syndrome, viral syndrome, and influenza.? Exam findings show no acute concerns or changes; patient is non-toxic appearing and is in no distress.? Patient is appropriate for outpatient treatment and follow-up. Differential Diagnosis Differential diagnosis: Likely upper respiratory infection, viral infection, influenza and other (COVID, cough) Medical Records Attestation: I reviewed the patient's medical records. Lab Data Attestation: I reviewed the patient's lab results. Lab results narrative: COVID antigen negative, Influenza A negative, Influenza B negative Labs: Lab Results 09/06/25 Range/Units 11:22 POC Influenza A Ag Negative (Negative) POC Influenza B Ag Negative (Negative) POC SARS CoV-2 Ag Negative (Negative) Critical Care Time Critical Care Time Critical Care Time: No Discharge Plan Discharge Clinical Impression: Cough in adult patient URI (upper respiratory infection) Qualifiers: URI type: unspecified URI Qualified Code(s): J06.9 - Acute upper respiratory infection, unspecified Patient Disposition: Home Condition: Stable Instructions: Upper Respiratory Infection (ED), Acute Cough (ED) Additional Instructions: Increase fluids especially juices and water [id number] cough and cold medicine of your choice for your symptoms Zyrtec Claritin or Joleen daily include Coricidin brand decongestant Continue your inhaler/nebulizer as directed Steroids as directed--take with food heat to the face 20-30 minutes 4-6 times a day for pain Salt water gargles, throat lozenges or throat sprays as desired Negative COVID and negative flu test Medrol Dosepak take as prescribed monitor blood sugars closely while on this medication If your symptoms persist, change or worsen significantly before you can contact your personal physician then please, without delay, go to the emergency department for further evaluation. Follow-up with PCP in 5-7 days or sooner if needed Quit smoking Patient Language: [place] Prescriptions: New methylprednisolone [Medrol (Wili)] 4 mg tablets,dose pack See Rx Instructions .ROUTE .COMPLEX Qty: 21 0RF Rx Instructions: orally per package directions take with food and monitor blood sugar closely while taking this medication No Action (DME) Aerochamber MV Spacer See Rx Instructions .Route Qty: 1 0RF Rx Instructions: As directed fluticasone propionate 50 mcg/actuation [place],Suspension 1 spray INTRANASAL DAILY (DME) blood-glucose meter [OneTouch Ultra2 Meter] Misc MISCELLANEOUS clonazepam 0.5 mg tablet 0.25 mg PO TID PRN (Reason: anxiety) gabapentin 300 mg capsule 300 mg PO TID (DME) lancets 30 gauge misc MISCELLANEOUS (DME) lancets [Safety Lancets] 28 gauge misc MISCELLANEOUS clopidogrel 75 mg tablet 75 mg PO DAILY bupropion HCl [Wellbutrin SR] 150 mg tablet sustained-release 12 hr 150 mg PO DAILY triamcinolone acetonide 0.5 % cream 1 applic topical BID Qty: 15 0RF Patient Comments: eczema on face alendronate 70 mg tablet 70 mg PO WEEKLY Qty: 12 3RF Patient Comments: Saturdays montelukast 10 mg tablet 10 mg PO QPM Qty: 90 0RF albuterol sulfate 90 mcg/actuation HFA aerosol inhaler 2 puff inhalation QID PRN (Reason: shortness of breath or wheezing) Qty: 6.7 3RF Breztri Aerosphere 160-9-4.8 mcg/actuation HFA aerosol inhaler 2 inh inhalation QAM AND QPM Qty: 10.7 3RF sotalol 80 mg tablet 120 mg PO Q12H docusate sodium 100 mg capsule 100 mg PO DAILY PRN (Reason: constipation) Qty: 90 0RF (DME) nebulizer and compressor [Lydia Trek S Combo Pack] Device 1 ea miscellaneous DIRECTED Qty: 1 0RF hydrocodone-acetaminophen 7.5-325 mg tablet 1 tablet PO Q6H fenofibrate 120 mg tablet 120 mg PO DAILY furosemide 80 mg tablet 80 mg PO QAM Qty: 7 0RF albuterol sulfate 2.5 mg /3 mL (0.083 %) solution for nebulization 2.5 mg inhalation Q6H PRN (Reason: shortness of breath or wheezing) Qty: 180 0RF cetirizine 10 mg tablet 10 mg PO DAILY Qty: 90 3RF Eliquis 5 mg tablet 5 mg PO Q12HR Qty: 60 2RF losartan 100 mg tablet 100 mg PO DAILY Qty: 90 3RF metformin 500 mg tablet 500 mg PO BID Qty: 180 3RF ezetimibe 10 mg tablet See Rx Instructions .ROUTE .COMPLEX Qty: 90 3RF Dose Instruction: TAKE 1 TABLET BY MOUTH EVERY DAY Rx Instructions: TAKE 1 TABLET BY MOUTH EVERY DAY ergocalciferol (vitamin D2) 1,250 mcg (50,000 unit) capsule 50,000 unit PO MONTHLY Qty: 3 4RF Follow-up/Referrals: Snow Montgomery APRN [Primary Care Provider, [facility]] Time of Disposition: 11:31 Quality [place] Coma Scale Eyes: Open Verbal: Oriented and Alert Motor: Follows Commands [place] Coma Total Score: 15
[2025-09-06 11:24] LABS: EDCOVIDSCREEN Negative (Negative); EDINFLUASCREEN Negative (Negative); EDINFLUBSCREEN Negative (Negative)
== END 2025-09-06 11:35 | disposition home or self-care (01) ==
PROVIDERS: Emergency Provider Registered Nurse; PCP Nurse Practitioner Family
DX: R05.9 Cough, unspecified (principal); J06.9 Acute upper respiratory infection, unspecified; Z20.822 Contact with and (suspected) exposure to COVID-19; F17.210 Nicotine dependence, cigarettes, uncomplicated; F12.90 Cannabis use, unspecified, uncomplicated; I48.0 Paroxysmal atrial fibrillation; I10 Essential (primary) hypertension; E11.43 Type 2 diabetes mellitus with diabetic autonomic (poly)neuropathy; K31.84 Gastroparesis; Z79.84 Long term (current) use of oral hypoglycemic drugs; E11.51 Type 2 diabetes mellitus with diabetic peripheral angiopathy without gangrene; I25.10 Atherosclerotic heart disease of native coronary artery without angina pectoris; E78.5 Hyperlipidemia, unspecified; J44.9 Chronic obstructive pulmonary disease, unspecified; Z86.73 Personal history of transient ischemic attack (TIA), and cerebral infarction without residual deficits; M81.0 Age-related osteoporosis without current pathological fracture; M19.90 Unspecified osteoarthritis, unspecified site; K21.9 Gastro-esophageal reflux disease without esophagitis; H35.30 Unspecified macular degeneration; Z85.51 Personal history of malignant neoplasm of bladder; Z86.19 Personal history of other infectious and parasitic diseases
CPT/HCPCS: 87426; 87804; 99213; G0463